=== PATIENT | female | born 1965 | race Caucasian/White ===

== ENCOUNTER → 2016-03-06 | Outpatient (CLI) | payer BC, OTHER ==
[~2016-03-06] MED LIST: ATR10 PO; ATV/1 PO; ATV1 PO; CALCTAB7 PO; CHOL2000 PO; CIPR-255 PO; CYT100 PO; DLD/2 PO; DLD2 PO; ERGO50002 PO; FNTTP50 TD; FOLI1TAB7 PO; FRRS300 PO; JUICE SUPPLEMENT PO; KFL500 PO; LDDP5 TD; MCRB100 PO; NAPR1TAB9 PO; ONDA4TAB46 PO; ONDA4TAB9 PO; PRT40 PO; Pain Pump INJ; SULF800T23 PO; THIA1TAB PO; VLTG EXT
[2016-03-06 11:42] LABS: BASO % 0.4 %; BASO ABS # 0.01 K/uL (0-0.2); COMPLETE YES; EOS % 3.4 %; HEMATOCRIT 28.7 % (37-47); LYMPH % 21.5 %; LYMPH ABS # 0.57 K/uL (1.2-3.4); MEAN CELL VOLUME 76.1 fL (80-100); MEAN CORPUSCULAR HEMOGLOBIN 24.1 pg (25-34); MEAN CORPUSCULAR HGB CONC 31.7 g/dl (32-36); MEAN PLATELET VOLUME 10.7 fL (7.4-10.4); MONO % 9.1 %; NEUT % 65.6 %; PLATELET COUNT 112 K/uL (130-400); RED BLOOD COUNT 3.77 M/uL (4.2-5.4); WHITE BLOOD COUNT 2.65 K/uL (4.8-10.8)
[2016-03-06 12:17] LABS: ALB/GLOB RATIO 0.9 (0.9-2); ALKALINE PHOSPHATASE 188 U/L (45-117); ALT/SGPT 34 U/L (12-78); AST/SGOT 42 U/L (15-37); BLOOD UREA NITROGEN 16 mg/dl (7-18); BUN/CREATININE RATIO 24.8 (10-20); CALCIUM 8.7 mg/dl (8.5-10.1); CARBON DIOXIDE 31 mmol/L (21-32); CHLORIDE 101 mmol/L (98-107); CREATININE 0.65 mg/dl (0.60-1.20); GLUCOSE 122 mg/dl (70-99); POTASSIUM 2.5 mmol/L (3.5-5.1); SODIUM 140 mmol/L (136-145)
== END ==
LOC: C.LABUPNIT 12:16
PROVIDERS: ATTEND Family Medicine
DX: J44.9 Chronic obstructive pulmonary disease, unspecified (principal)

== ENCOUNTER → 2016-03-07 | Outpatient (CLI) | payer BC, OTHER ==
[2016-03-07 09:05] LABS: BLOOD UREA NITROGEN 19 mg/dl (7-18); BUN/CREATININE RATIO 33.3 (10-20); CALCIUM 8.8 mg/dl (8.5-10.1); CARBON DIOXIDE 30 mmol/L (21-32); CHLORIDE 98 mmol/L (98-107); CREATININE 0.58 mg/dl (0.60-1.20); GLUCOSE 95 mg/dl (70-99); MAGNESIUM 1.8 mg/dl (1.8-2.4); POTASSIUM 2.7 mmol/L (3.5-5.1); SODIUM 141 mmol/L (136-145)
== END ==
LOC: C.LABUPNIT 12:43
PROVIDERS: ATTEND Family Medicine
DX: K70.31 Alcoholic cirrhosis of liver with ascites (principal)

== ENCOUNTER → 2016-03-11 | Outpatient (CLI) | payer BC, OTHER ==
[2016-03-11 08:25] LABS: BLOOD UREA NITROGEN 19 mg/dl (7-18); BUN/CREATININE RATIO 31.5 (10-20); CALCIUM 8.6 mg/dl (8.5-10.1); CARBON DIOXIDE 30 mmol/L (21-32); CHLORIDE 101 mmol/L (98-107); GLUCOSE 89 mg/dl (70-99); MAGNESIUM 2.2 mg/dl (1.8-2.4); POTASSIUM 2.9 mmol/L (3.5-5.1); SODIUM 141 mmol/L (136-145)
== END ==
LOC: C.LABUPNIT 08:07
PROVIDERS: ATTEND Family Medicine
DX: R60.9 Edema, unspecified (principal); M62.81 Muscle weakness (generalized)

== ENCOUNTER → 2016-03-24 | Outpatient (CLI) | payer BC, OTHER ==
[2016-03-24 09:13] LABS: BLOOD UREA NITROGEN 17 mg/dl (7-18); BUN/CREATININE RATIO 28.4 (10-20); CALCIUM 8.7 mg/dl (8.5-10.1); CARBON DIOXIDE 28 mmol/L (21-32); CHLORIDE 102 mmol/L (98-107); CREATININE 0.61 mg/dl (0.60-1.20); GLUCOSE 120 mg/dl (70-99); SODIUM 141 mmol/L (136-145)
== END ==
LOC: C.LABUPNIT 08:46
PROVIDERS: ATTEND Family Medicine
DX: R60.9 Edema, unspecified (principal)

== ENCOUNTER → 2016-03-29 | Outpatient (CLI) | payer BC, OTHER ==
[2016-03-29 08:30] LABS: BLOOD UREA NITROGEN 13 mg/dl (7-18); BUN/CREATININE RATIO 22.5 (10-20); CALCIUM 8.5 mg/dl (8.5-10.1); CARBON DIOXIDE 26 mmol/L (21-32); CHLORIDE 105 mmol/L (98-107); CREATININE 0.59 mg/dl (0.60-1.20); GLUCOSE 68 mg/dl (70-99); MAGNESIUM 1.9 mg/dl (1.8-2.4); POTASSIUM 3.4 mmol/L (3.5-5.1); SODIUM 143 mmol/L (136-145)
== END ==
LOC: C.LABUPNIT 08:04
PROVIDERS: ATTEND Family Medicine
DX: K72.90 Hepatic failure, unspecified without coma (principal)

== ENCOUNTER 2016-05-11 17:19 | Observation (INO) | payer BC, OTHER ==
[~2016-05-11] VITALS: Ht 165.1 cm; Wt 64.5 kg
[~2016-05-11 17:19] MED LIST changes: -ATR10 PO; -ATV/1 PO; -CALCTAB7 PO; -CHOL2000 PO; -CIPR-255 PO; -CYT100 PO; -DLD/2 PO; -DLD2 PO; -ERGO50002 PO; -FNTTP50 TD; -FOLI1TAB7 PO; -FRRS300 PO; +HYDR2TAB3 PO; -KFL500 PO; -MCRB100 PO; -NAPR1TAB9 PO; -ONDA4TAB9 PO; -PRT40 PO; -Pain Pump INJ; -SULF800T23 PO; -THIA1TAB PO
--- NOTE | 2016-05-11 19:18 | DIAGNOSTIC IMAGING REPORT ---
SINGLE VIEW PELVIS; 2 LEFT HIP CLINICAL HISTORY: Fall with left thigh pain. FINDINGS: AP pelvic radiographs with AP and frog-leg views of the left hip are obtained. Comparison is made to study dated 11/28/2015. The skeletal structures are osteopenic. There is chronic posttraumatic deformity of the left hip. Intertrochanteric and intramedullary nails are in place. The orthopedic hardware is intact. There are minimally distracted acute on chronic left pubic ring fractures. No additional acute fracture is identified. The remainder the bony pelvis and the proximal femora are preserved. Mild to moderate arthritic change is seen in the hips. Mild sclerosis is noted in the sacroiliac joints. Soft tissue edema is present in the left upper thigh. There is a nonobstructed abdominal bowel gas pattern. An electronic device projects over the right lower quadrant of the abdomen. IMPRESSION: 1. There are minimally distracted acute on chronic left pubic ring fractures with overlying soft tissue edema. 2. No additional acute fracture seen. 3. There is chronic posttraumatic deformity and postoperative change in the left proximal femur. 4. Osteopenia and degenerative change as above. Electronically signed by: Herbie Reese M.D. 05/11/2016 7:16 PM Dictated Date/Time: 05/11/2016 7:13 PM
--- NOTE | 2016-05-11 19:20 | DIAGNOSTIC IMAGING REPORT ---
LEFT FOREARM 2 VIEWS CLINICAL HISTORY: Fall with left arm pain. FINDINGS: AP and lateral views of the left forearm are obtained. No prior studies are available for comparison at the time of dictation. The skeletal structures are osteopenic. No acute fracture is seen. There is chronic posttraumatic deformity of the distal radius with a buttress plate in place. There is a chronic avulsion injury of the ulnar styloid. The wrist and elbow joints are grossly maintained. Mild soft tissue swelling is suggested above the elbow. IMPRESSION: 1. No acute fracture is identified in the left forearm. 2. Osteopenia with chronic posttraumatic and postoperative change involving the wrist as above. Electronically signed by: Herbie Reese M.D. 05/11/2016 7:19 PM Dictated Date/Time: 05/11/2016 7:17 PM
--- NOTE | 2016-05-11 19:23 | DIAGNOSTIC IMAGING REPORT ---
LEFT HUMERUS 2 VIEWS CLINICAL HISTORY: Fall with left arm pain. FINDINGS: AP and lateral views of the left humerus are obtained. No prior studies are available for comparison at the time of dictation. The skeletal structures are osteopenic. No humeral fracture is identified. The left shoulder and elbow joints are grossly maintained. Mild soft tissue swelling is noted above the elbow. IMPRESSION: 1. Osteopenia with no radiographic evidence of left humeral fracture. 2. Soft tissue swelling is noted above the elbow. Electronically signed by: Herbie Reese M.D. 05/11/2016 7:21 PM Dictated Date/Time: 05/11/2016 7:20 PM
--- NOTE | 2016-05-11 19:27 | DIAGNOSTIC IMAGING REPORT ---
LEFT ANKLE 3 VIEWS CLINICAL HISTORY: Fall with left ankle injury. FINDINGS: 3 views of left ankle are obtained. No prior studies are available for comparison at the time of dictation. The skeletal structures are heterogeneously osteopenic and no definite acute fracture is identified. A curvilinear density just below the lateral malleolus may represent an age indeterminant avulsion injury. The ankle mortise is intact. There is a joint effusion. Soft tissue swelling is present around the ankle. A tiny plantar calcaneal enthesophyte is observed. IMPRESSION: 1. Soft tissue swelling and joint effusion. The skeletal structures are heterogeneously osteopenic with no definite acute fracture seen. 2. A curvilinear density is identified just below the lateral malleolus, possibly representing an age-indeterminate avulsion injury. Correlate for point tenderness at this site. Electronically signed by: Herbie Reese M.D. 05/11/2016 7:26 PM Dictated Date/Time: 05/11/2016 7:22 PM
[2016-05-11] MEDS ORDERED: ACETAMINOPHEN/CODEINE 300/30MG TAB PO STA (20:27)
[2016-05-11 20:32] LABS: MEAN CORPUSCULAR HGB CONC 31.7 g/dl (32-36)
[2016-05-11 20:41] LABS: HEMATOCRIT 27.1 % (37-47); MEAN CELL VOLUME 67.6 fL (80-100); MEAN CORPUSCULAR HEMOGLOBIN 21.4 pg (25-34); RED BLOOD COUNT 4.01 M/uL (4.2-5.4); WHITE BLOOD COUNT 2.68 K/uL (4.8-10.8)
[2016-05-11 20:44] LABS: BUN/CREATININE RATIO 9.5 (10-20); CALCIUM 8.6 mg/dl (8.5-10.1); CREATININE 0.66 mg/dl (0.60-1.20); POTASSIUM 3.9 mmol/L (3.5-5.1)
[2016-05-11 21:04] LABS: BASO % 0.4 %; BASO ABS # 0.01 K/uL (0-0.2); COMPLETE YES; ECHINOCYTES 1+; EOS % 0.4 %; IG% 0.4 %; LARGE PLATELETS 1+; LYMPH % 13.4 %; LYMPH ABS # 0.36 K/uL (1.2-3.4); MEAN PLATELET VOLUME 9.5 fL (7.4-10.4); MICROCYTOSIS PRESENT; MONO % 4.5 %; NEUT % 80.9 %; PLATELET COUNT 118 K/uL (130-400); PLT ESTIMATE DECREASED
--- NOTE | 2016-05-11 21:27 | EMERGENCY ROOM VISIT NOTE ---
History First contact with patient: 18:01 Chief Complaint: LEG PAIN,LEG INJURY Stated Complaint: LEFT EYE & ARM PAIN History of Present Illness The patient is a 51 year old female who presents to the Emergency Room via ambulance with complaints of "left leg and left arm pain. The patient states that she was moving into her apartment on Tuesday, and fell on the rug that is on the linoleum. She states that she fell injuring the left elbow, left thigh and left foot. She came here via ambulance today. She states that she is experiencing a lot of pain in the left arm, pelvis/left thigh and left foot. She denies any loss of consciousness, nausea, vomiting, new chest pain, new shortness of breath or new abdominal pain. She denies any new neck or back pain. She is taking 4 mg of Dilaudid orally which she had at her home. She also has a lidocaine patch on the left thigh. Review of Systems A complete 10-point Review of Systems was discussed with the patient, with pertinent positives and negatives listed in the History of Present Illness. All remaining Review of Systems questions can be considered negative unless otherwise specified. 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 (18) UTI (urinary tract infection) Surgical Problems: (1) H/O gastric bypass (2) H/O gastrostomy (3) H/O total hip arthroplasty (4) History of cholecystectomy (5) History of total hysterectomy Family History Cancer FHx: aneurysm FHx: stroke Social History Smoking Status: Unknown if Ever Smoked Alcohol Use: heavy Drug Use: none Marital Status: Housing Status: lives alone Occupation Status: unemployed Current/Historical Medications Scheduled Diclofenac Sod (Voltaren), 1 APPLN EXT QID Lidocaine (Lidocaine), 1 PATCH TD QAM Scheduled PRN Hydromorphone HCl (Hydromorphone HCl), 6 MG PO Q2H PRN for Pain Lorazepam (Lorazepam), 1 MG PO Q4 PRN for Anxiety Ondansetron Hcl (Zofran), 8 MG PO Q6 PRN for Nausea Allergies Coded Allergies: Clarithromycin (Verified Allergy, Intermediate, HIVES, 05/11/16) Aspirin (Verified Allergy, Mild, 05/11/16) Tramadol (Verified Allergy, Mild, 05/11/16) Oxaprozin (Verified Allergy, Unknown, 05/11/16) Physical Exam Vital Signs Date Time Temp Pulse Resp B/P Pulse Ox O2 Delivery O2 Flow Rate FiO2 05/11/16 23:54 73 18 131/75 98 05/11/16 20:46 87 24 139/104 99 Room Air 05/11/16 19:23 94 16 132/70 99 Room Air 05/11/16 18:44 77 18 133/60 94 Room Air 05/11/16 17:27 37.3 84 18 147/78 98 Room Air Physical Exam VITAL SIGNS - Vital signs and nursing notes were reviewed. The patient is afebrile, slightly hypertensive, non-tachycardic and is saturating well on room air 98%. GENERAL -51-year-old female appearing her stated age. The patient does appear to be rocking back and forth upon our conversation. Communicates well with provider and answers questions appropriately. SKIN - Gross examination of the entire body surface demonstrates no lacerations to the body surface. There is abrasion noted to the left lateral elbow. There is ecchymosis noted on the left elbow. HEAD - Normocephalic, Atraumatic. EYES - PERRL with EOMI bilaterally. Without subconjunctival hemorrhage. Palpebral conjunctiva pink and moist with no injection. EARS - No deformities of external structures noted on gross examination bilaterally. NOSE - Midline and without cyanosis. No epistaxis or clear watery discharge noted. MOUTH/OROPHARYNX - Without perioral cyanosis. LUNGS - Chest wall symmetric without accessory muscle use, intercostals retractions, or central cyanosis. No flail chest or depressed fractures noted. No paradoxical chest wall movements noted. Normal vesicular breath sounds CTA B/ L. No wheezes, rales, or rhonchi appreciated. CARDIAC - RRR with S1/S2. No murmur, rubs, or gallops appreciated. EXTREMITIES - No gross deformities noted of the extremities. There is tenderness to palpation overlying the proximal thigh and left hip. + There is also tenderness to palpation overlying the left lateral ankle. The skin is intact. +5/5 strength noted in UE/LE bilaterally. No neurologic deficits. Neurovascular deficits. Medical Decision & Procedures ER Provider Diagnostic Interpretation: LEFT ANKLE 3 VIEWS CLINICAL HISTORY: Fall with left ankle injury. FINDINGS: 3 views of left ankle are obtained. No prior studies are available for comparison at the time of dictation. The skeletal structures are heterogeneously osteopenic and no definite acute fracture is identified. A curvilinear density just below the lateral malleolus may represent an age indeterminant avulsion injury. The ankle mortise is intact. There is a joint effusion. Soft tissue swelling is present around the ankle. A tiny plantar calcaneal enthesophyte is observed. IMPRESSION: 1. Soft tissue swelling and joint effusion. The skeletal structures are heterogeneously osteopenic with no definite acute fracture seen. 2. A curvilinear density is identified just below the lateral malleolus, possibly representing an age-indeterminate avulsion injury. Correlate for point tenderness at this site. Electronically signed by: Herbie Reese M.D. 05/11/2016 7:26 PM Dictated Date/Time: 05/11/2016 7:22 PM LEFT FOREARM 2 VIEWS CLINICAL HISTORY: Fall with left arm pain. FINDINGS: AP and lateral views of the left forearm are obtained. No prior studies are available for comparison at the time of dictation. The skeletal structures are osteopenic. No acute fracture is seen. There is chronic posttraumatic deformity of the distal radius with a buttress plate in place. There is a chronic avulsion injury of the ulnar styloid. The wrist and elbow joints are grossly maintained. Mild soft tissue swelling is suggested above the elbow. IMPRESSION: 1. No acute fracture is identified in the left forearm. 2. Osteopenia with chronic posttraumatic and postoperative change involving the wrist as above. Electronically signed by: Herbie Reese M.D. 05/11/2016 7:19 PM Dictated Date/Time: 05/11/2016 7:17 PM SINGLE VIEW PELVIS; 2 LEFT HIP CLINICAL HISTORY: Fall with left thigh pain. FINDINGS: AP pelvic radiographs with AP and frog-leg views of the left hip are obtained. Comparison is made to study dated 11/28/2015. The skeletal structures are osteopenic. There is chronic posttraumatic deformity of the left hip. Intertrochanteric and intramedullary nails are in place. The orthopedic hardware is intact. There are minimally distracted acute on chronic left pubic ring fractures. No additional acute fracture is identified. The remainder the bony pelvis and the proximal femora are preserved. Mild to moderate arthritic change is seen in the hips. Mild sclerosis is noted in the sacroiliac joints. Soft tissue edema is present in the left upper thigh. There is a nonobstructed abdominal bowel gas pattern. An electronic device projects over the right lower quadrant of the abdomen. IMPRESSION: 1. There are minimally distracted acute on chronic left pubic ring fractures with overlying soft tissue edema. 2. No additional acute fracture seen. 3. There is chronic posttraumatic deformity and postoperative change in the left proximal femur. 4. Osteopenia and degenerative change as above. Electronically signed by: Herbie Reese M.D. 05/11/2016 7:16 PM Dictated Date/Time: 05/11/2016 7:13 PM LEFT HUMERUS 2 VIEWS CLINICAL HISTORY: Fall with left arm pain. FINDINGS: AP and lateral views of the left humerus are obtained. No prior studies are available for comparison at the time of dictation. The skeletal structures are osteopenic. No humeral fracture is identified. The left shoulder and elbow joints are grossly maintained. Mild soft tissue swelling is noted above the elbow. IMPRESSION: 1. Osteopenia with no radiographic evidence of left humeral fracture. 2. Soft tissue swelling is noted above the elbow. Electronically signed by: Herbie Reese M.D. 05/11/2016 7:21 PM Dictated Date/Time: 05/11/2016 7:20 PM Laboratory Results 05/11/16 20:10 Red Blood Count 4.01, Mean Corpuscular Volume 67.6, Mean Corpuscular Hemoglobin 21.4, Mean Corpuscular Hemoglobin Concent 31.7, Mean Platelet Volume 9.5, Neutrophils (%) (Auto) 80.9, Lymphocytes (%) (Auto) 13.4, Monocytes (%) (Auto) 4.5, Eosinophils (%) (Auto) 0.4, Basophils (%) (Auto) 0.4, Neutrophils # (Auto) 2.17, Lymphocytes # (Auto) 0.36, Monocytes # (Auto) 0.12, Eosinophils # (Auto) 0.01, Basophils # (Auto) 0.01 05/11/16 20:10 Test 05/11/16 20:10 White Blood Count 2.68 K/uL (4.8-10.8) Red Blood Count 4.01 M/uL (4.2-5.4) Hemoglobin 8.6 g/dL (12.0-16.0) Hematocrit 27.1 % (37-47) Mean Corpuscular Volume 67.6 fL (80-100) Mean Corpuscular Hemoglobin 21.4 pg (25-34) Mean Corpuscular Hemoglobin Concent 31.7 g/dl (32-36) Platelet Count 118 K/uL (130-400) Mean Platelet Volume 9.5 fL (7.4-10.4) Neutrophils (%) (Auto) 80.9 % Lymphocytes (%) (Auto) 13.4 % Monocytes (%) (Auto) 4.5 % Eosinophils (%) (Auto) 0.4 % Basophils (%) (Auto) 0.4 % Neutrophils # (Auto) 2.17 K/uL (1.4-6.5) Lymphocytes # (Auto) 0.36 K/uL (1.2-3.4) Monocytes # (Auto) 0.12 K/uL (0.11-0.59) Eosinophils # (Auto) 0.01 K/uL (0-0.5) Basophils # (Auto) 0.01 K/uL (0-0.2) RDW Standard Deviation 45.9 fL (36.4-46.3) RDW Coefficient of Variation 18.5 % (11.5-14.5) Immature Granulocyte % (Auto) 0.4 % Immature Granulocyte # (Auto) 0.01 K/uL (0.00-0.02) Platelet Estimate DECREASED Large Platelets 1+ Microcytosis PRESENT Echinocytes 1+ Anion Gap 10.0 mmol/L (3-11) Est Creatinine Clear Calc Drug Dose 89.7 ml/min Estimated GFR () 117.7 Estimated GFR (Non- 101.6 BUN/Creatinine Ratio 9.5 (10-20) Calcium Level 8.6 mg/dl (8.5-10.1) Medications Administered Medications (Trade) Dose Ordered Sig/Flori Route Start Time Stop Time Status Last Admin Dose Admin Acetaminophen/ Codeine Phosphate (Tylenol w/ Codeine #3 Tab) 1 tab NOW STAT PO 05/11/16 20:27 3/28/17 20:28 DC 05/11/16 20:44 1 TAB Medical Decision Patient was seen and evaluated as above. Patient presents via ambulance. She is status post fall. There is ecchymosis overlying the left elbow. She seems to be writhing in pain, an extensive review of her chart reveals that she is to receive no narcotics secondary for concern over previous visits regarding narcotic use. I did discuss this with the patient and offered her essentially every other potential pain medication other than narcotics, and between her allergies she was offered Tylenol and said that will not help her pain. Radiographs were obtained of the affected areas. Acute on chronic pelvic fracture as well as left ankle fracture suspected. She'll be splinted with a gel ankle splint on the left ankle as well as a left arm sling. The patient seemed very upset when I said I was not able to give her narcotic medication. The case was discussed with my attending who also personally evaluated the patient. She was given one Tylenol with Codeine. Laboratory results reveal a low white blood cell count red blood cell count anemia as well as decreased platelet count. These all appear to be chronic. There is also elevation of chloride, low carbon dioxide, low BUN. I do not suspect any emergent change to these. The patient would be an excellent candidate for rehabilitation facility to help with her ambulatory dysfunction however at this time it is too late to have her placed. I do believe the next best alternative is inpatient management. The case was discussed with my attending and then with Dr. Neumann, He agreed to evaluate the patient. Please refer to further documentation regarding her stay. I do believe the patient this time is stable for admission. In evaluation treatment this patient the following differential diagnoses were entertained: Fracture of the left elbow, left elbow contusion, contusion multiple sites, left hip fracture, acute on chronic pelvic fracture, among others. Impression Primary Impression: Fall Additional Impressions: Pelvic ring fracture Ankle fracture, lateral malleolus, closed Left elbow pain Departure Information Dispostion Admitted as an inpatient Condition FAIR Referrals Zoey Locke (PCP) Patient Instructions My [facility] Health Problem Qualifiers
--- NOTE | 2016-05-11 23:12 | History and Physical ---
History & Physical Date & Time of Service: May 11, 2016 at 23:11 Chief Complaint: Left Eye & Arm Pain Primary Care Physician: Zoey Lokce History of Present Illness Source: patient This is a 51 y/o F with a history of MS who presents after a Fall 2 days ago. She reports that she slipped on the linoleum at home when she was moving in her new apartment. She attempted to get up but fell again. She currently has pain in her left foot, pelvis and left arm. She denies pre-syncope / syncope/ LOC/ chest pain, shortness of breath. She is unable to bear weight on her left foot. She also has some bruising on her left elbow region. Past Medical/Surgical History Medical Problems: (1) Anxiety Status: Chronic (2) Chronic back pain Status: Chronic (3) Endometriosis Status: Chronic (4) Fibromyalgia Status: Chronic (5) GERD (gastroesophageal reflux disease) Status: Chronic (6) Multiple Sclerosis Status: Chronic Surgical Problems: (1) H/O gastric bypass Permanent Comment: 2000 Status: Resolved (2) H/O gastrostomy Permanent Comment: 10/26/14 Status: Resolved (3) H/O total hip arthroplasty Permanent Comment: ; 2012 Status: Resolved (4) History of cholecystectomy Permanent Comment: 10/26/14 Status: Resolved (5) History of total hysterectomy Permanent Comment: 1994 Status: Resolved Family History Cancer FHx: aneurysm FHx: stroke Social History Smoking Status: Unknown if Ever Smoked Drug Use: none Marital Status: Housing status: penitentiary Occupational Status: unemployed Immunizations History of Influenza Vaccine: Unknown History of Tetanus Vaccine?: Unknown History of Pneumococcal: Unknown History of Hepatitis B Vaccine: Unknown Multi-Drug Resistant Organisms History of MDRO: No Allergies Coded Allergies: Clarithromycin (Verified Allergy, Intermediate, HIVES, 05/11/16) Aspirin (Verified Allergy, Mild, 05/11/16) Tramadol (Verified Allergy, Mild, 05/11/16) Oxaprozin (Verified Allergy, Unknown, 05/11/16) Home Medications Scheduled Diclofenac Sod (Voltaren), 1 APPLN EXT QID Lidocaine (Lidocaine), 1 PATCH TD QAM Scheduled PRN Hydromorphone HCl (Hydromorphone HCl), 6 MG PO Q2H PRN for Pain Lorazepam (Lorazepam), 1 MG PO Q4 PRN for Anxiety Ondansetron Hcl (Zofran), 8 MG PO Q6 PRN for Nausea Review of Systems Constitutional: + fatigue, + weakness, No chills, No fever, No weight loss Respiratory: No cough, No dyspnea at rest, No dyspnea on exertion, No shortness of breath, No sputum, No wheezing Cardiovascular: No chest pain Abdomen: No nausea, No pain, No vomiting Musculoskeletal: + joint pain, + muscle pain, + swelling Genitourinary - Female: No dysuria, No urinary frequency, No urinary urgency Physical Exam Vital Signs Date Time Temp Pulse Resp B/P Pulse Ox O2 Delivery O2 Flow Rate FiO2 05/11/16 20:46 87 24 139/104 99 Room Air 05/11/16 19:23 94 16 132/70 99 Room Air 05/11/16 18:44 77 18 133/60 94 Room Air 05/11/16 17:27 37.3 84 18 147/78 98 Room Air General Appearance: + mild distress Eyes: PERRL, EOMI ENT: hearing grossly normal Neck: supple, no adenopathy Respiratory/Chest: lungs clear, normal breath sounds, no respiratory distress, no accessory muscle use Cardiovascular: regular rate, rhythm, no edema Abdomen/GI: normal bowel sounds, non tender, soft Extremities/Musculoskelatal: + swelling (left elbow bruising, limited ROM due to pain), + pertinent finding (Left Lower extremity weakness, strength 3/5) Neurologic/Psych: alert, + motor weakness, + depressed affect, + pertinent finding Diagnostics Laboratory Results Results Past 24 Hours Test 05/11/16 20:10 Range/Units White Blood Count 2.68 4.8-10.8 K/uL Red Blood Count 4.01 4.2-5.4 M/uL Hemoglobin 8.6 12.0-16.0 g/dL Hematocrit 27.1 37-47 % Mean Corpuscular Volume 67.6 80-100 fL Mean Corpuscular Hemoglobin 21.4 25-34 pg Mean Corpuscular Hemoglobin Concent 31.7 32-36 g/dl Platelet Count 118 130-400 K/uL Mean Platelet Volume 9.5 7.4-10.4 fL Neutrophils (%) (Auto) 80.9 % Lymphocytes (%) (Auto) 13.4 % Monocytes (%) (Auto) 4.5 % Eosinophils (%) (Auto) 0.4 % Basophils (%) (Auto) 0.4 % Neutrophils # (Auto) 2.17 1.4-6.5 K/uL Lymphocytes # (Auto) 0.36 1.2-3.4 K/uL Monocytes # (Auto) 0.12 0.11-0.59 K/uL Eosinophils # (Auto) 0.01 0-0.5 K/uL Basophils # (Auto) 0.01 0-0.2 K/uL RDW Standard Deviation 45.9 36.4-46.3 fL RDW Coefficient of Variation 18.5 11.5-14.5 % Immature Granulocyte % (Auto) 0.4 % Immature Granulocyte # (Auto) 0.01 0.00-0.02 K/uL Platelet Estimate DECREASED Large Platelets 1+ Microcytosis PRESENT Echinocytes 1+ Sodium Level 138 136-145 mmol/L Potassium Level 3.9 3.5-5.1 mmol/L Chloride Level 108 98-107 mmol/L Carbon Dioxide Level 20 21-32 mmol/L Anion Gap 10.0 3-11 mmol/L Blood Urea Nitrogen 6 7-18 mg/dl Creatinine 0.66 0.60-1.20 mg/dl Est Creatinine Clear Calc Drug Dose 89.7 ml/min Estimated GFR () 117.7 Estimated GFR (Non- 101.6 BUN/Creatinine Ratio 9.5 10-20 Random Glucose 129 70-99 mg/dl Calcium Level 8.6 8.5-10.1 mg/dl Impression Assessment and Plan Ambulatory dysfunction s/p Fall No new fractures noted on Xrays- except for minor acute on chronic pelvic ring fractures Does have osteopenia PT/OT Will need Acute rehab pain control, avoid narcs DVT proph Lovenox Med rec Unavailable at this time VTE Prophylaxis VTE Risk Assessment Done? Y/N: Yes Risk Level: Moderate Assessment and Plan Attending Addendum: I have physically seen and examined this patient, have directed their medical care, have supervised the medical residents activities, and agree with the H&P as noted above, with the following changes: NONE All the patient's usual medications and treatments will be continued. She was assessed by PT and OT, to determine inpatient rehabilitation is necessary.
[2016-05-11] MEDS ORDERED: ONDANSETRON 4 MG TAB PO PRN (23:15)
[2016-05-11] MEDS ORDERED: MAGNESIUM HYDROXIDE SUSP 30 ML UDC PO PRN (23:15)
[2016-05-11] MEDS ORDERED: POLYETHYLENE (MIRALAX) 17 GM PACK PO PRN (23:15)
[2016-05-11] MEDS ORDERED: ALUMINUM/MAGNESIUM/SIMETH (MAALOX MAX) 30 ML UDC PO PRN (23:15)
[2016-05-11] MEDS ORDERED: ACETAMINOPHEN 325 MG TAB PO PRN (23:15)
[2016-05-11] MEDS ORDERED: HYDROmorphone HCL 2 MG TAB PO PRN (23:15)
[2016-05-11] MEDS ORDERED: ONDANSETRON INJ 2 MG/ML 2 ML VIAL IV PRN (23:15)
--- NOTE | 2016-05-11 23:23 | EMERGENCY ROOM VISIT NOTE ---
ED Visit Note First contact with patient: 18:01 I have personally evaluated and examined this patient. I agree with assessment and plan of Héctor Ayala PA-C. 51 yr old female with ambulatory disfunction and not doing well at home with fall resulting in several fractures. No evidence of shock at this time and I do not feel she requires transfer to trauma center. Will discuss with hospitalist for further evaluation and placement.
[2016-05-11 23:54] VITALS: O2SAT 98
[2016-05-12 00:20] VITALS: BP 160/70; PULSE 75; TEMP 37.3; O2SAT 98; Ht 165.1 cm; Wt 64.5 kg
[2016-05-12] MEDS ORDERED: HYDROmorphone HCL 2 MG TAB ONE (02:20)
[2016-05-12] MEDS ORDERED: IV FLUIDS COMPLETED PRN (02:45)
[2016-05-12] MEDS: LORAZEPAM 1 MG TAB PO PRN ×2 (03:01→07:52)
[2016-05-12 07:56] VITALS: BP 128/73; PULSE 73; TEMP 36.6; O2SAT 97
[2016-05-12 08:08] LABS: INR 1.3 (0.9-1.1); PROTHROMBIN TIME (PATIENT) 13.6 SECONDS (9.0-12.0)
[2016-05-12] MEDS: DICLOFENAC SOD 1% GEL 100 GM TUBE EXT SCH ×4 (10:15→21:11)
[2016-05-12] MEDS: ENOXAPARIN 40 MG/0.4 ML SYR SQ SCH (10:16)
[2016-05-12] MEDS: LIDODERM (LIDOCAINE) PATCH 5% TD SCH (10:17)
[2016-05-12] MEDS: HYDROmorphone INJ 2 MG/ML SYR/VIAL IV PRN ×4 (10:28→22:27)
--- NOTE | 2016-05-12 13:04 | Hospitalist Progress Note ---
Hospitalist Progress Note Date of Service May 12, 2016. Subjective Pt evaluation today including: conversation w/ patient, physical exam, chart review, lab review, review of studies, review of inpatient medication list Voiding: no voiding problems, no incontinence Patient reports 9/10 diffuse body pain. Given IV 6 mg Dilaudid (ordered by admitting team) with no relief in symptoms. +anxiousness. +diffuse abdominal pain. Patient denies any fever, chills, sweats, lightheadedness, dizziness, vision changes, CP, palpitations, edema, SOB, wheezing, cough, nausea, vomiting , diarrhea, urinary symptoms, melena, numbness/tingling, weakness, depression, active bleeding, or new skin discoloration/changes. Medications Current Inpatient Medications Medications (Trade) Dose Ordered Sig/Flori Route Start Time Stop Time Status Last Admin Dose Admin Enoxaparin Sodium (Lovenox Inj) 40 mg QAM SQ 05/12/16 09:00 06/11/16 08:59 05/12/16 10:16 40 MG Acetaminophen (Tylenol Tab) 650 mg Q4H PRN PO 05/11/16 23:15 06/10/16 23:14 Al Hydrox/Mg Hydrox/Simethicone (Maalox Max Susp) 15 ml Q4H PRN PO 05/11/16 23:15 06/10/16 23:14 Magnesium Hydroxide (Milk Of Magnesia Susp) 30 ml Q6H PRN PO 05/11/16 23:15 06/10/16 23:14 Polyethylene (Miralax Powder Packet) 17 gm DAILY PRN PO 05/11/16 23:15 06/10/16 23:14 Ondansetron HCl (Zofran Inj) 4 mg Q6H PRN IV 05/11/16 23:15 06/10/16 23:14 Diclofenac Sodium (Voltaren 1% Top Gel) 1 appln QID EXT 05/12/16 09:00 06/11/16 08:59 05/12/16 10:15 1 APPLN Lidocaine (Lidoderm Patch 5%) 1 patch QAM TD 05/12/16 09:00 06/11/16 08:59 05/12/16 10:17 1 PATCH Ondansetron HCl (Zofran Tab) 8 mg Q6 PRN PO 05/11/16 23:15 06/10/16 23:14 Miscellaneous (Remove Lidoderm Patch) 1 ea DAILY@21 N/A 05/12/16 21:00 06/11/16 20:59 Miscellaneous (Iv Fluids Completed) 1 ea PRN PRN N/A 05/12/16 02:45 05/12/17 02:44 Hydromorphone HCl 2 mg 2 mg Q2H PRN IV 05/12/16 10:00 05/26/16 09:59 05/12/16 10:28 2 MG Lorazepam/Syringe (Ativan Inj/ Syringe) 1 ml @ 0.5 mls/min Q6H PRN IV 05/12/16 09:15 06/11/16 09:14 Objective Vital Signs Date Time Temp Pulse Resp B/P Pulse Ox O2 Delivery O2 Flow Rate FiO2 05/12/16 07:56 36.6 73 16 128/73 97 Room Air 05/12/16 07:15 Room Air 05/12/16 00:20 37.3 75 18 160/70 98 Room Air 05/12/16 00:20 37.3 75 18 160/70 Room Air 05/11/16 23:54 73 18 131/75 98 05/11/16 20:46 87 24 139/104 99 Room Air 05/11/16 19:23 94 16 132/70 99 Room Air 05/11/16 18:44 77 18 133/60 94 Room Air 05/11/16 17:27 37.3 84 18 147/78 98 Room Air Physical Exam General Appearance: no apparent distress Eyes: normal inspection, PERRL ENT: hearing grossly normal Neck: supple Respiratory/Chest: lungs clear, no respiratory distress, no accessory muscle use Abdomen: normal bowel sounds, soft, + tenderness (diffuse tenderness to light palpation ) Extremities: no pedal edema, no calf tenderness, + pertinent finding (SCDs on. Left ankle brace on ) Neurologic/Psychiatric: alert, oriented x 3, + depressed affect Skin: warm/dry, no rash, + pallor Laboratory Results Last 24 Hours Test 05/11/16 20:10 05/12/16 07:46 White Blood Count 2.68 K/uL Red Blood Count 4.01 M/uL Hemoglobin 8.6 g/dL Hematocrit 27.1 % Mean Corpuscular Volume 67.6 fL Mean Corpuscular Hemoglobin 21.4 pg Mean Corpuscular Hemoglobin Concent 31.7 g/dl Platelet Count 118 K/uL Mean Platelet Volume 9.5 fL Neutrophils (%) (Auto) 80.9 % Lymphocytes (%) (Auto) 13.4 % Monocytes (%) (Auto) 4.5 % Eosinophils (%) (Auto) 0.4 % Basophils (%) (Auto) 0.4 % Neutrophils # (Auto) 2.17 K/uL Lymphocytes # (Auto) 0.36 K/uL Monocytes # (Auto) 0.12 K/uL Eosinophils # (Auto) 0.01 K/uL Basophils # (Auto) 0.01 K/uL RDW Standard Deviation 45.9 fL RDW Coefficient of Variation 18.5 % Immature Granulocyte % (Auto) 0.4 % Immature Granulocyte # (Auto) 0.01 K/uL Platelet Estimate DECREASED Large Platelets 1+ Microcytosis PRESENT Echinocytes 1+ Sodium Level 138 mmol/L Potassium Level 3.9 mmol/L Chloride Level 108 mmol/L Carbon Dioxide Level 20 mmol/L Anion Gap 10.0 mmol/L Blood Urea Nitrogen 6 mg/dl Creatinine 0.66 mg/dl Est Creatinine Clear Calc Drug Dose 89.7 ml/min Estimated GFR () 117.7 Estimated GFR (Non- 101.6 BUN/Creatinine Ratio 9.5 Random Glucose 129 mg/dl Calcium Level 8.6 mg/dl Prothrombin Time 13.6 SECONDS Prothromb Time International Ratio 1.3 Hepatitis C Antibody Screen NEG Assessment and Plan This is a 51 y/o F with a history of MS who presents after a Fall 2 days ago. She reports that she slipped on the linoleum at home when she was moving in her new apartment. She attempted to get up but fell again. She currently has pain in her left foot, pelvis and left arm. She denies pre-syncope / syncope/ LOC/ chest pain, shortness of breath. She is unable to bear weight on her left foot. She also has some bruising on her left elbow region. Ambulatory dysfunction s/p fall: - Admit to med/surg - Imaging: -- Humerus fracture- Osteopenia with no radiographic evidence of left humeral fracture. Soft tissue swelling is noted above the elbow. -- Hip/pelvic fracture- There are minimally distracted acute on chronic left pubic ring fractures with overlying soft tissue edema. No additional acute fracture seen. There is chronic posttraumatic deformity and postoperative change in the left proximal femur. -- Left forearm- No acute fracture is identified in the left forearm. Osteopenia with chronic posttraumatic and postoperative change involving the wrist as above. -- Left ankle- Soft tissue swelling and joint effusion. The skeletal structures are heterogeneously osteopenic with no definite acute fracture seen. A curvilinear density is identified just below the lateral malleolus, possibly representing an age-indeterminate avulsion injury. Correlate for point tenderness at this site. Osteopenia and degenerative change as above. - Consult PT/OT - IV Dilaudid 2 mg q2 hrs PRN for pain control Chronic diffuse body pain/MS: - Consult pain management, appreciate recommendations -- According to patient, was taking Dilaudid PO 6 mg q2 hrs at home. Records reviewed, last prescription given was Dilaudid 2 mg PO x10 days (finished 5 days ago). Multiple narcotic prescriptions noted. -- Nursing staff reports that patient was complaining that no PCP will give her pain prescriptions - IV Dilaudid, Voltaren gel, and Lidoderm patch - Check ESR, CRP, ERNIE screen, and Lyme disease titers Anxiety: Ativan 1 mg IV q6 hrs PRN Alcoholic cirrhosis: - INR of 1.2- appears baseline per records - Follow PT/INR - Check LFTs tomorrow AM Thrombocytopenia, chronic- stable: Follow CBC GI Prophylaxis: Maalox PRN, IV Zofran PRN, Colace and/or Milk of Mag PRN DVT prophylaxis: Lovenox 40 mg SQ q24 hrsm, GUIDO and SCDs Code Status: LEVEL I, FULL Dispo: Pending PT/OT evaluations. accounting advisory services manager consulted
[2016-05-12 14:54] VITALS: BP 110/69; PULSE 73; TEMP 37; O2SAT 97
[2016-05-12 15:50] LABS: LYME DISEASE AB IGG NEG (NEG); LYME DISEASE AB IGM NEG (NEG)
[2016-05-13 00:01] VITALS: BP 107/68; PULSE 62; TEMP 37; O2SAT 96
[2016-05-13] MEDS: LORAZEPAM INJ 1 MG in SYRINGE 0.5 ML IV PRN ×2 (01:06→21:06)
[2016-05-13] MEDS: HYDROmorphone INJ 2 MG/ML SYR/VIAL IV PRN ×8 (01:42→23:34)
[2016-05-13 07:20] LABS: INR 1.3 (0.9-1.1); PROTHROMBIN TIME (PATIENT) 13.7 SECONDS (9.0-12.0)
[2016-05-13 07:41] LABS: BUN/CREATININE RATIO 19.7 (10-20); CREATININE 0.48 mg/dl (0.60-1.20); POTASSIUM 3.6 mmol/L (3.5-5.1)
[2016-05-13 07:48] VITALS: BP 112/65; PULSE 56; TEMP 36.7; O2SAT 94
[2016-05-13] MEDS: DICLOFENAC SOD 1% GEL 100 GM TUBE EXT SCH ×4 (07:58→21:07)
[2016-05-13] MEDS: LIDODERM (LIDOCAINE) PATCH 5% TD SCH (07:59)
[2016-05-13] MEDS: ENOXAPARIN 40 MG/0.4 ML SYR SQ SCH ×2 (07:59→11:14)
[2016-05-13 08:26] LABS: FERRITIN 11.4 ng/ml (8.0-388.0)
[2016-05-13 09:04] LABS: HEMATOCRIT 24.8 % (37-47); MEAN CELL VOLUME 69.5 fL (80-100); MEAN CORPUSCULAR HEMOGLOBIN 21.3 pg (25-34); MEAN CORPUSCULAR HGB CONC 30.6 g/dl (32-36); MEAN PLATELET VOLUME 9.4 fL (7.4-10.4); PLATELET COUNT 115 K/uL (130-400); RED BLOOD COUNT 3.57 M/uL (4.2-5.4); WHITE BLOOD COUNT 2.08 K/uL (4.8-10.8)
--- NOTE | 2016-05-13 09:44 | Pain Management Consultation ---
Pain Management Consultation Date of Consultation May 13, 2016. Reason for Consultation Fall; gait dysfunction History Mrs. Saldana is a 51 year old white female that has a history of chronic bilateral hip pain and diffuse myalgias which has required the implantation of an intrathecal pump and catheter delivery system. She has the pump refilled at the [place] [facility] [employer] Mrs. Saldana is admitted to the [facility] for a fall that occurred yesterday. She slipped on linoleum [place] while moving into a new apartment. She has left ankle pain, left elbow pain, and left groin/pelvic pain. Patient is wearing an ankle splint. She states that she is ambulating small amounts with the use of a walker. She has started physical therapy yesterday. Patient is currently ordered Dilaudid 2mg IV x 2 hrs which she is using approximately x 3-4 hours with pain relief. Patient rates her pain 8/10. Patient has an intrathecal pump containing Morphine and Fentanyl. She is receiving Morphine 3.498mg/day and Fentanyl 46.64mcg/day intrathecally. She has also been on Fentanyl patches 50mcg/hr as well as a reported Dilaudid 6mg x 2 hours PRN pain. According to notes, physicians have discontinued prescribing her Dilaudid recently. Patient denies any constitutional complaints, neurological symptoms, bowel/bladder incontinence , extremity weakness. Case discussed with Dr. Muro Past Medical/Surgical History (1) Presence of intrathecal pump (2) Chronic alcoholic liver disease (3) Pelvic ring fracture (4) Left elbow pain (5) Ankle fracture, lateral malleolus, closed (6) Fibromyalgia (7) Chronic back pain (8) Endometriosis (9) Multiple Sclerosis (10) Anxiety (11) GERD (gastroesophageal reflux disease) (12) H/O total hip arthroplasty (13) H/O gastric bypass (14) H/O gastrostomy (15) History of total hysterectomy (16) History of cholecystectomy Social / Work History Smoking Status: Never smoker Smokeless Tobacco Use: No Alcohol Use: previous alcoholism Marital Status: Housing Status: [facility] Occupation: unemployed Allergies Coded Allergies: Clarithromycin (Verified Allergy, Intermediate, HIVES, 05/11/16) Aspirin (Verified Allergy, Mild, 05/11/16) Tramadol (Verified Allergy, Mild, 05/11/16) Oxaprozin (Verified Allergy, Unknown, 05/11/16) Medications Current Inpatient Medications Medications (Trade) Dose Ordered Sig/Flori Route Start Time Stop Time Status Last Admin Dose Admin Enoxaparin Sodium (Lovenox Inj) 40 mg QAM SQ 05/12/16 09:00 06/11/16 08:59 05/12/16 10:16 40 MG Acetaminophen (Tylenol Tab) 650 mg Q4H PRN PO 05/11/16 23:15 06/10/16 23:14 Al Hydrox/Mg Hydrox/Simethicone (Maalox Max Susp) 15 ml Q4H PRN PO 05/11/16 23:15 06/10/16 23:14 Magnesium Hydroxide (Milk Of Magnesia Susp) 30 ml Q6H PRN PO 05/11/16 23:15 06/10/16 23:14 Polyethylene (Miralax Powder Packet) 17 gm DAILY PRN PO 05/11/16 23:15 06/10/16 23:14 Ondansetron HCl (Zofran Inj) 4 mg Q6H PRN IV 05/11/16 23:15 06/10/16 23:14 Diclofenac Sodium (Voltaren 1% Top Gel) 1 appln QID EXT 05/12/16 09:00 06/11/16 08:59 05/13/16 07:58 1 APPLN Lidocaine (Lidoderm Patch 5%) 1 patch QAM TD 05/12/16 09:00 06/11/16 08:59 05/13/16 07:59 1 PATCH Ondansetron HCl (Zofran Tab) 8 mg Q6 PRN PO 05/11/16 23:15 06/10/16 23:14 Miscellaneous (Remove Lidoderm Patch) 1 ea DAILY@21 N/A 05/12/16 21:00 06/11/16 20:59 05/12/16 21:09 1 EA Miscellaneous (Iv Fluids Completed) 1 ea PRN PRN N/A 05/12/16 02:45 05/12/17 02:44 Hydromorphone HCl 2 mg 2 mg Q2H PRN IV 05/12/16 10:00 05/26/16 09:59 05/13/16 07:58 2 MG Lorazepam/Syringe (Ativan Inj/ Syringe) 1 ml @ 0.5 mls/min Q6H PRN IV 05/12/16 09:15 06/11/16 09:14 05/13/16 01:06 0.5 MLS/MIN Calcium/Vitamin D (Caltrate Plus Tab) 1 tab BID PO 05/13/16 09:00 06/12/16 08:59 Review of Systems Denies any constitutional, cardiac, pulmonary, neurological, GI, , extremity, endocrine, neuro, ENT, dermatological, or musculoskeletal complaints other than stated in HPI Physical Exam Height & Weight: Height 5 feet, 5.00 inches. Weight 64.500 (Kilograms) 142 (Pounds) Last Vital Signs Documentation Date Time Temp Pulse Resp B/P Pulse Ox O2 Delivery O2 Flow Rate FiO2 05/13/16 08:11 Room Air 05/13/16 00:01 37.0 62 16 107/68 96 Exam: GENERAL: Mrs. Saldana is a 51 y/o white female that appears older than her stated age. She is thin and frail appearing. Speech and cognition is intact. Mood and affect is appropriate. Sleeping quietly in the hospital, in no acute distress. HEAD: Normocephalic; atraumatic. EYES: Pupils are round, equal, and reactive to light; EOM intact. ENT: No external ear discharge or lesions. No rhinorrhea or epistaxis. No mucosal lesions. NECK: Full ROM; trachea is midline CHEST: Regular chest respiration and excursion. ABDOMEN: Pump is located in the RLQ, non tender. EXTREMITIES: Decreased ROM of the left ankle with splint in place, distal sensation is intact, capillary refill is brisk. There is mild bruising of the left elbow with full ROM. PELVIS: There is tenderness of the left pubic region to palpation. NEURO: CN II-XII grossly intact with no focal deficits noted. Gait not observed. SKIN: No lesions, erythema, or rashes noted. Laboratory / Imaging Results Imagin05/11/16 Pelvis X-Ray IMPRESSION: 1. There are minimally distracted acute on chronic left pubic ring fractures with overlying soft tissue edema. 2. No additional acute fracture seen. 3. There is chronic posttraumatic deformity and postoperative change in the left proximal femur. Left forearm X-ray IMPRESSION: 1. No acute fracture is identified in the left forearm. 2. Osteopenia with chronic posttraumatic and postoperative change involving the wrist as above. Left Ankle 05/11/16 IMPRESSION: 1. Soft tissue swelling and joint effusion. The skeletal structures are heterogeneously osteopenic with no definite acute fracture seen. 2. A curvilinear density is identified just below the lateral malleolus, possibly representing an age-indeterminate avulsion injury. Correlate for point tenderness at this site. [place] Drug Monitoring Program Search Results: patient reviewed within database (Patient has been receiving ) Drug Monitoring Findings: There are many Hydromorphone pills and Fentanyl patches prescribed to the patient. #440 tablets of Hydromorphone this month. #7 Fentanyl patches this month. There are many private pays for medications. Several different providers. Opioid Risk Assessment Risk assessment performed, high risk identified (Patient does have a history of alcoholism and history of previous opioid overdose) Assessment 1. Fall 2. Left ankle pain 3. Acute on chronic pelvic fractures 4. Left elbow contusion 5. Diffuse myalgias and bilateral hip pain requiring the implantation of an intrathecal pump and catheter delivery system. 6. History of alcoholism and opioid overdose. Recommendations 1. Intrathecal pump was interrogated and pump has 16.7 reservoir volume and needs refilled no later than 09/16/2016. 2. Patient will continue PT/OT 3. Continue IV Dilaudid 2mg x 2 hours. 4. Would not recommend discharging the patient on narcotics as she does have a significant history of misuse and abuse of narcotic medications. 5. Recommend IV Toradol for pain in addition to regimen if not medically contraindicated. Dragon Voice Recognition This chart was completed in part utilizing [employer] Voice Recognition Software. Random word insertions, pronoun errors, and incomplete sentences are an occasional consequence of this system due to software limitations and ambient noise. Any questions or concerns about the content, text or information contained within the body of this dictation should be directly addressed to the provider for clarification. Additional Copies To Zoey Locke
[2016-05-13] MEDS: CALCIUM 600MG + VIT D 400 IU TAB PO SCH ×2 (09:49→21:06)
[2016-05-13 10:23] LABS: BASO ABS # 0.02 K/uL (0-0.2); COMPLETE YES; EOS % 3.4 %; LYMPH % 36.1 %; LYMPH ABS # 0.75 K/uL (1.2-3.4); MONO % 8.7 %; NEUT % 50.8 %
[2016-05-13] MEDS ORDERED: NURSING VERBAL MED ORDER ONE (10:45)
[2016-05-13] MEDS: SODIUM CHLORIDE 0.9% 1000ML 1,000 ML IV SCH ×2 (11:19→23:38)
--- NOTE | 2016-05-13 12:44 | Hospitalist Progress Note ---
Hospitalist Progress Note Date of Service May 13, 2016. Subjective Pt evaluation today including: conversation w/ patient, physical exam, chart review, lab review, review of inpatient medication list Voiding: no voiding problems, no incontinence +9/10 diffuse muscle/joint pain. Patient denies any dark/tarry stools, or noticeable blood with bowel movements.Patient denies any fever, chills, sweats, lightheadedness, dizziness, vision changes, CP, palpitations, edema, SOB, wheezing, cough, abdominal pain, nausea, vomiting, diarrhea, urinary symptoms, melena, numbness/tingling, weakness, anxiety/depression, active bleeding, or new skin discoloration/changes. Medications Current Inpatient Medications Medications (Trade) Dose Ordered Sig/Flori Route Start Time Stop Time Status Last Admin Dose Admin Enoxaparin Sodium (Lovenox Inj) 40 mg QAM SQ 05/12/16 09:00 06/11/16 08:59 05/13/16 11:14 40 MG Acetaminophen (Tylenol Tab) 650 mg Q4H PRN PO 05/11/16 23:15 06/10/16 23:14 Al Hydrox/Mg Hydrox/Simethicone (Maalox Max Susp) 15 ml Q4H PRN PO 05/11/16 23:15 06/10/16 23:14 Magnesium Hydroxide (Milk Of Magnesia Susp) 30 ml Q6H PRN PO 05/11/16 23:15 06/10/16 23:14 Polyethylene (Miralax Powder Packet) 17 gm DAILY PRN PO 05/11/16 23:15 06/10/16 23:14 Ondansetron HCl (Zofran Inj) 4 mg Q6H PRN IV 05/11/16 23:15 06/10/16 23:14 Diclofenac Sodium (Voltaren 1% Top Gel) 1 appln QID EXT 05/12/16 09:00 06/11/16 08:59 05/13/16 07:58 1 APPLN Lidocaine (Lidoderm Patch 5%) 1 patch QAM TD 05/12/16 09:00 06/11/16 08:59 05/13/16 07:59 1 PATCH Ondansetron HCl (Zofran Tab) 8 mg Q6 PRN PO 05/11/16 23:15 06/10/16 23:14 Miscellaneous (Remove Lidoderm Patch) 1 ea DAILY@21 N/A 05/12/16 21:00 06/11/16 20:59 05/12/16 21:09 1 EA Miscellaneous (Iv Fluids Completed) 1 ea PRN PRN N/A 05/12/16 02:45 05/12/17 02:44 Hydromorphone HCl 2 mg 2 mg Q2H PRN IV 05/12/16 10:00 05/26/16 09:59 05/13/16 10:20 2 MG Lorazepam/Syringe (Ativan Inj/ Syringe) 1 ml @ 0.5 mls/min Q6H PRN IV 05/12/16 09:15 06/11/16 09:14 05/13/16 01:06 0.5 MLS/MIN Calcium/Vitamin D 1 tab 1 tab BID PO 05/13/16 09:00 06/12/16 08:59 05/13/16 09:49 1 TAB Sodium Chloride (Nss 1000ml) 1,000 ml @ 75 mls/hr [id number] IV 05/13/16 10:45 06/12/16 10:44 05/13/16 11:19 75 MLS/HR Objective Vital Signs Date Time Temp Pulse Resp B/P Pulse Ox O2 Delivery O2 Flow Rate FiO2 05/13/16 08:11 Room Air 05/13/16 07:48 36.7 56 16 112/65 94 Room Air 05/13/16 00:01 37.0 62 16 107/68 96 Room Air 05/12/16 23:30 Room Air 05/12/16 20:00 Room Air 05/12/16 14:54 37.0 73 17 110/69 97 Room Air Physical Exam General Appearance: no apparent distress Eyes: normal inspection, PERRL ENT: hearing grossly normal Neck: supple Respiratory/Chest: lungs clear, no respiratory distress, no accessory muscle use Cardiovascular: regular rate, rhythm Abdomen: normal bowel sounds, soft, + tenderness (diffuse tenderness to light palpation ) Extremities: no pedal edema, no calf tenderness, + pertinent finding (left ankle brace on) Neurologic/Psychiatric: + depressed affect Skin: warm/dry, no rash, + pallor Laboratory Results Last 24 Hours Test 05/12/16 14:17 05/13/16 05:29 05/13/16 06:29 05/13/16 09:53 Erythrocyte Sedimentation Rate 6 mm/hr C-Reactive Protein < 0.29 mg/dl Lyme Disease IgG Antibody NEG Lyme Disease IgM Antibody NEG White Blood Count 2.08 K/uL Red Blood Count 3.57 M/uL Hemoglobin 7.6 g/dL Hematocrit 24.8 % Mean Corpuscular Volume 69.5 fL Mean Corpuscular Hemoglobin 21.3 pg Mean Corpuscular Hemoglobin Concent 30.6 g/dl Platelet Count 115 K/uL Mean Platelet Volume 9.4 fL Neutrophils (%) (Auto) 50.8 % Lymphocytes (%) (Auto) 36.1 % Monocytes (%) (Auto) 8.7 % Eosinophils (%) (Auto) 3.4 % Basophils (%) (Auto) 1.0 % Neutrophils # (Auto) 1.06 K/uL Lymphocytes # (Auto) 0.75 K/uL Monocytes # (Auto) 0.18 K/uL Eosinophils # (Auto) 0.07 K/uL Basophils # (Auto) 0.02 K/uL RDW Standard Deviation 47.7 fL RDW Coefficient of Variation 18.7 % Immature Granulocyte % (Auto) 0.0 % Immature Granulocyte # (Auto) 0.00 K/uL Prothrombin Time 13.7 SECONDS Prothromb Time International Ratio 1.3 Sodium Level 143 mmol/L Potassium Level 3.6 mmol/L Chloride Level 111 mmol/L Carbon Dioxide Level 25 mmol/L Anion Gap 7.0 mmol/L Blood Urea Nitrogen 9 mg/dl Creatinine 0.48 mg/dl Est Creatinine Clear Calc Drug Dose 123.4 ml/min Estimated GFR () 130.7 Estimated GFR (Non- 112.8 BUN/Creatinine Ratio 19.7 Random Glucose 90 mg/dl Calcium Level 8.0 mg/dl Iron Level 14 mcg/dl Total Iron Binding Capacity 417 mcg/dl Ferritin 11.4 ng/ml Total Bilirubin 0.8 mg/dl Direct Bilirubin 0.3 mg/dl Aspartate Amino Transf (AST/SGOT) 17 U/L Alanine Aminotransferase (ALT/SGPT) 17 U/L Alkaline Phosphatase 144 U/L Total Protein 6.0 gm/dl Albumin 2.9 gm/dl 25-Hydroxy Vitamin D Total 21.6 ng/ml Assessment and Plan This is a 51 y/o F with a history of MS who presents after a Fall 2 days ago. She reports that she slipped on the linoleum at home when she was moving in her new apartment. She attempted to get up but fell again. She currently has pain in her left foot, pelvis and left arm. She denies pre-syncope / syncope/ LOC/ chest pain, shortness of breath. She is unable to bear weight on her left foot. She also has some bruising on her left elbow region. Ambulatory dysfunction s/p fall: - Admit to med/surg - Imaging: -- Humerus fracture- Osteopenia with no radiographic evidence of left humeral fracture. Soft tissue swelling is noted above the elbow. -- Hip/pelvic fracture- There are minimally distracted acute on chronic left pubic ring fractures with overlying soft tissue edema. No additional acute fracture seen. There is chronic posttraumatic deformity and postoperative change in the left proximal femur. -- Left forearm- No acute fracture is identified in the left forearm. Osteopenia with chronic posttraumatic and postoperative change involving the wrist as above. -- Left ankle- Soft tissue swelling and joint effusion. The skeletal structures are heterogeneously osteopenic with no definite acute fracture seen. A curvilinear density is identified just below the lateral malleolus, possibly representing an age-indeterminate avulsion injury. Correlate for point tenderness at this site. Osteopenia and degenerative change as above. - Consult PT/OT - IV Dilaudid 2 mg q2 hrs PRN for pain control - Vitamin D of 21.6 -- begin Vitamin D supplement on 05/13 Chronic diffuse body pain/MS: - Consult pain management, appreciate recommendations--> recommend no narcotics at discharge, IV Toradol- will avoid, pt states she allergic -- According to patient, was taking Dilaudid PO 6 mg q2 hrs at home. Records reviewed, last prescription given was Dilaudid 2 mg PO x10 days (finished 5 days ago). Multiple narcotic prescriptions noted. -- Nursing staff reports that patient was complaining that no PCP will give her pain prescriptions - IV Dilaudid, Voltaren gel, and Lidoderm patch - Check ESR, CRP, and Lyme disease titers- unremarkable - ERNIE screen pending Anxiety: Ativan 1 mg IV q6 hrs PRN Alcoholic cirrhosis: - INR of 1.2- appears baseline per records - Follow PT/INR - Reviewed LFTs- stable Thrombocytopenia, chronic- stable: - Follow CBC - Iron panel- iron 14, TIBC 417, ferritin 11.4 -- begin Ferrous Sulfate 325 mg PO BID on 05/13 - Check b12/folate - Check stool heme occult GI Prophylaxis: Maalox PRN, IV Zofran PRN, Colace and/or Milk of Mag PRN DVT prophylaxis: GUIDO and SCDs, hold chemical therapy due to thrombocytopenia Code Status: LEVEL I, FULL Dispo: - PT/OT evaluations--> Recommend returning back to [facility]. greeter guest services consulted - Hopeful discharge to [facility] in the next 1-2 days
[2016-05-13 15:00] LABS: HEMATOCRIT 26.8 % (37-47)
[2016-05-13] MEDS ORDERED: PANTOprazole INJ 40 MG in SYRINGE 0 ML IV ONE (15:15)
--- NOTE | 2016-05-13 15:23 | Gastrointestinal Consultation ---
Gastrointestinal Consultation Date of Consultation: May 13, 2016 Consulting Physician: Efra Reason for Consultation: anemia, + occult blood History of Present Illness Patient is a 51 year old female with past medical history significant for anxiety, hypothyroidism, depression, alcoholic cirrhosis, anemia, fibromyalgia, MS, chronic back pain, s/p cholecystectomy 2014, s/p gastric bypass 20 years ago in [place] and GERD who presents to the ED after a fall. GI is consulted for anemia and + stool for occult blood. Patient was seen and examined. She was doing well until she had a fall recently. She reports a lengthy history of BRBPR starting around 2013. This is always painless rectal bleeding, occurs intermittently without any other symptoms. No abdominal pain, chest pain, SOB, lightheadedness or dizziness. Stools have been alternating between green and black as reported by the patient. She experiences constant nausea and intermittent bouts of vomiting - triggered every time after she eats. This is always undigested food, no hematemesis or coffee ground emesis. Food always sticks when she swallows. Denies this sensation currently. 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 This was set up to be revised, however, patient did not follow up with this. History of ETOH abuse, she is denying any ETOH use in the past year. No NSAIDs. She does not follow up with [facility] as an outpatient - unsure about other practices. 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 proceed with cholecystectomy EGD 07/26/14: normal examined jejunum, empiric dilation, follow up as needed EGD 06/18/14: could not pass 9mm scope, dilation, repeat if symptoms EGD 05/21/14: could not pass 9mm scope, dilation at stricture repeat in 2-3 weeks EGD 04/22/14: dilation at stricture, repeat in 1 week EGD 04/01/14: dilation at stricture, repeat in 1 week EGD 03/26/14: dilation at stricture, repeat in 1 week, consult surgery EGD 03/01/14: dilation at stricture repeat in 2 weeks EGD 02/27/14: dilation at stricture repeat in 2 weeks EGD 02/18/14: could not pass through stenotic gastrojejunal anastomosis Colonoscopy 02/18/14: entire examined colon is normal, normal ileum Past Medical/Surgical History Medical Problems: (1) Alcohol dependence Status: Acute (2) Alcohol intoxication Status: Acute (3) Ankle fracture, lateral malleolus, closed Status: Acute (4) Chronic abdominal pain Status: Acute (5) Failure of outpatient treatment Status: Acute (6) Fever Status: Acute (7) Head injury Status: Acute (8) Hyperbilirubinemia Status: Acute (9) Hypokalemia Status: Acute (10) Hypomagnesemia Status: Acute (11) Jaundice Status: Acute (12) Left elbow pain Status: Acute (13) Pelvic ring fracture Status: Acute (14) Urinary tract infection Status: Acute (15) Vomiting Status: Acute Family History Cancer FHx: aneurysm FHx: stroke Social History Smoking Status: Never Smoker Alcohol Use: heavy Drug Use: none Marital Status: Housing Status: lives alone Occupation Status: unemployed Allergies Coded Allergies: Clarithromycin (Verified Allergy, Intermediate, HIVES, 05/11/16) Aspirin (Verified Allergy, Mild, 05/11/16) Tramadol (Verified Allergy, Mild, 05/11/16) Oxaprozin (Verified Allergy, Unknown, 05/11/16) Current Medications Home Meds and Scripts Medications Dose Route/Sig Max Daily Dose Days Date Category Lidocaine 1 Patch Tdsy 1 Patch TD QAM 12/05/15 Rx Voltaren (Diclofenac Sod) 100 Appln/100 Gm Gel 1 Appln EXT QID 12/05/15 Rx Lorazepam 1 Mg Tab 1 Mg PO Q4 PRN 12/05/15 Rx Hydromorphone HCl 2 Mg Tab 6 Mg PO Q2H PRN 12/05/15 Rx Zofran (Ondansetron HCl) 4 Mg Tab 8 Mg PO Q6 PRN 10/16/15 Reported Review of Systems Constitutional: No chills, No fever Abdomen: + GI bleeding, + nausea, + vomiting, No constipation, No diarrhea, No pain Physical Exam Date Time Temp Pulse Resp B/P Pulse Ox O2 Delivery O2 Flow Rate FiO2 05/13/16 08:11 Room Air 05/13/16 07:48 36.7 56 16 112/65 94 Room Air 05/13/16 00:01 37.0 62 16 107/68 96 Room Air 05/12/16 23:30 Room Air 05/12/16 20:00 Room Air General Appearance: + mild distress (patient is constantly moving in bed, reports leg and arm pain) Eyes: PERRL ENT: hearing grossly normal Neck: supple, trachea midline Respiratory/Chest: lungs clear, no respiratory distress, no accessory muscle use Cardiovascular: regular rate, rhythm, no JVD, no murmur Abdomen: normal bowel sounds, soft, no organomegaly, no pulsatile mass, + tenderness (diffuse tenderness) Neurologic/Psych: alert, normal mood/affect, oriented x 3 Skin: no jaundice, warm/dry, no rash Laboratory Results Last 24 Hours Test 05/13/16 05:29 05/13/16 06:29 05/13/16 09:53 05/13/16 13:45 White Blood Count 2.08 K/uL Red Blood Count 3.57 M/uL Hemoglobin 7.6 g/dL Hematocrit 24.8 % Mean Corpuscular Volume 69.5 fL Mean Corpuscular Hemoglobin 21.3 pg Mean Corpuscular Hemoglobin Concent 30.6 g/dl Platelet Count 115 K/uL Mean Platelet Volume 9.4 fL Neutrophils (%) (Auto) 50.8 % Lymphocytes (%) (Auto) 36.1 % Monocytes (%) (Auto) 8.7 % Eosinophils (%) (Auto) 3.4 % Basophils (%) (Auto) 1.0 % Neutrophils # (Auto) 1.06 K/uL Lymphocytes # (Auto) 0.75 K/uL Monocytes # (Auto) 0.18 K/uL Eosinophils # (Auto) 0.07 K/uL Basophils # (Auto) 0.02 K/uL RDW Standard Deviation 47.7 fL RDW Coefficient of Variation 18.7 % Immature Granulocyte % (Auto) 0.0 % Immature Granulocyte # (Auto) 0.00 K/uL Prothrombin Time 13.7 SECONDS Prothromb Time International Ratio 1.3 Sodium Level 143 mmol/L Potassium Level 3.6 mmol/L Chloride Level 111 mmol/L Carbon Dioxide Level 25 mmol/L Anion Gap 7.0 mmol/L Blood Urea Nitrogen 9 mg/dl Creatinine 0.48 mg/dl Est Creatinine Clear Calc Drug Dose 123.4 ml/min Estimated GFR () 130.7 Estimated GFR (Non- 112.8 BUN/Creatinine Ratio 19.7 Random Glucose 90 mg/dl Calcium Level 8.0 mg/dl Iron Level 14 mcg/dl Total Iron Binding Capacity 417 mcg/dl Ferritin 11.4 ng/ml Total Bilirubin 0.8 mg/dl Direct Bilirubin 0.3 mg/dl Aspartate Amino Transf (AST/SGOT) 17 U/L Alanine Aminotransferase (ALT/SGPT) 17 U/L Alkaline Phosphatase 144 U/L Total Protein 6.0 gm/dl Albumin 2.9 gm/dl 25-Hydroxy Vitamin D Total 21.6 ng/ml Stool Occult Blood POSITIVE Test 05/13/16 14:52 Impression Patient is a 51 year old female with anemia (HGB of 7.6 --> 8.4) in the setting of rectal bleeding and + occult blood. Advised colonoscopy/EGD for evaluation. Patient is not agreeable to a colonoscopy and would like to discuss this with her family first. Plan NPO after midnight EGD tomorrow - patient is not agreeable to a colonoscopy IV PPI BID IVF for hydration Trend H&H monitor stools transfuse if needed Call with questions I have seen and examined the patient with with Nicole Calvert whose note reflects our findings and plan. Patient admitted after a fall. Has a history of stricture at surgical site. Last EGD was 11/29. This can be done as an outpatient once she recovers from her current illness.
[2016-05-13 15:47] VITALS: BP 115/63; PULSE 70; TEMP 37; O2SAT 97
[2016-05-13] MEDS: FERROUS SULFATE 325 MG TAB PO SCH (18:13)
[2016-05-13] MEDS: PANTOprazole INJ 40 MG in SYRINGE 0 ML IV SCH (21:07)
[2016-05-13 23:13] LABS: HEMATOCRIT 24.9 % (37-47)
[2016-05-13 23:24] VITALS: BP 135/80; PULSE 63; TEMP 36.9; O2SAT 95
[2016-05-13 23:40] LABS: URINE APPEARANCE CLOUDY (CLEAR); URINE BILIRUBIN NEG (NEG); URINE COLOR DK YELLOW; URINE NITRITE POS (NEG); URINE PH 6.5 (4.5-7.5); UROBILINOGEN NEG (NEG); ZZUR CULT IF INDIC CLEAN CATCH YES
[2016-05-13 23:51] LABS: MANUAL MICROSCOPIC REQUIRED? NO; REVIEW REQ? NO
[2016-05-14] MEDS: HYDROmorphone INJ 2 MG/ML SYR/VIAL IV PRN ×6 (01:43→22:15)
[2016-05-14] MEDS: CEFTRIAXONE SOD INJ 2,000 MG in DEXTROSE 5% 50ML 50 ML IV SCH (02:31)
[2016-05-14] MEDS: LORAZEPAM INJ 1 MG in SYRINGE 0.5 ML IV PRN (04:15)
[2016-05-14 06:42] LABS: INR 1.2 (0.9-1.1); PROTHROMBIN TIME (PATIENT) 13.4 SECONDS (9.0-12.0)
[2016-05-14 06:56] LABS: BUN/CREATININE RATIO 18.7 (10-20); CALCIUM 7.9 mg/dl (8.5-10.1); CREATININE 0.46 mg/dl (0.60-1.20); POTASSIUM 3.4 mmol/L (3.5-5.1)
[2016-05-14 07:10] VITALS: BP 161/81; PULSE 69; TEMP 36.7; O2SAT 97
[2016-05-14] MEDS: CALCIUM 600MG + VIT D 400 IU TAB PO SCH ×2 (07:43→21:00)
[2016-05-14] MEDS: FERROUS SULFATE 325 MG TAB PO SCH ×2 (07:43→17:28)
[2016-05-14] MEDS: PANTOprazole INJ 40 MG in SYRINGE 0 ML IV SCH ×2 (07:50→22:15)
[2016-05-14] MEDS: DICLOFENAC SOD 1% GEL 100 GM TUBE EXT SCH ×4 (07:50→20:29)
[2016-05-14] MEDS: LIDODERM (LIDOCAINE) PATCH 5% TD SCH (07:51)
[2016-05-14] MEDS ORDERED: POTASSIUM CHLORIDE 20 MEQ TABCR PO ONE (11:30)
--- NOTE | 2016-05-14 11:33 | Hospitalist Progress Note ---
Hospitalist Progress Note Date of Service May 14, 2016. Subjective Pt evaluation today including: conversation w/ patient, physical exam, chart review, lab review, review of inpatient medication list Voiding: no voiding problems, no incontinence Patient continues to complain of diffuse 9/10 muscle/joint pain. NPO for EGD today. Patient denies any fever, chills, sweats, lightheadedness, dizziness, vision changes, CP, palpitations, edema, SOB, wheezing, cough, abdominal pain, nausea, vomiting, diarrhea, urinary symptoms, melena, numbness/tingling, weakness, anxiety/depression, active bleeding, or new skin discoloration/ changes. Medications Current Inpatient Medications Medications (Trade) Dose Ordered Sig/Flori Route Start Time Stop Time Status Last Admin Dose Admin Acetaminophen (Tylenol Tab) 650 mg Q4H PRN PO 05/11/16 23:15 06/10/16 23:14 Al Hydrox/Mg Hydrox/Simethicone (Maalox Max Susp) 15 ml Q4H PRN PO 05/11/16 23:15 06/10/16 23:14 Magnesium Hydroxide (Milk Of Magnesia Susp) 30 ml Q6H PRN PO 05/11/16 23:15 06/10/16 23:14 Polyethylene (Miralax Powder Packet) 17 gm DAILY PRN PO 05/11/16 23:15 06/10/16 23:14 Ondansetron HCl (Zofran Inj) 4 mg Q6H PRN IV 05/11/16 23:15 06/10/16 23:14 Diclofenac Sodium (Voltaren 1% Top Gel) 1 appln QID EXT 05/12/16 09:00 06/11/16 08:59 05/14/16 07:50 1 APPLN Lidocaine (Lidoderm Patch 5%) 1 patch QAM TD 05/12/16 09:00 06/11/16 08:59 05/14/16 07:51 1 PATCH Ondansetron HCl (Zofran Tab) 8 mg Q6 PRN PO 05/11/16 23:15 06/10/16 23:14 Miscellaneous (Remove Lidoderm Patch) 1 ea DAILY@21 N/A 05/12/16 21:00 06/11/16 20:59 05/13/16 21:19 1 EA Miscellaneous (Iv Fluids Completed) 1 ea PRN PRN N/A 05/12/16 02:45 05/12/17 02:44 Hydromorphone HCl 2 mg 2 mg Q2H PRN IV 05/12/16 10:00 05/26/16 09:59 05/14/16 10:26 2 MG Lorazepam/Syringe (Ativan Inj/ Syringe) 1 ml @ 0.5 mls/min Q6H PRN IV 05/12/16 09:15 06/11/16 09:14 05/14/16 04:15 0.5 MLS/MIN Calcium/Vitamin D 1 tab 1 tab BID PO 05/13/16 09:00 06/12/16 08:59 05/13/16 21:06 1 TAB Sodium Chloride (Nss 1000ml) 1,000 ml @ 70 mls/hr [id number] IV 05/13/16 10:45 06/12/16 10:44 05/13/16 23:38 70 MLS/HR Ferrous Sulfate 325 mg 325 mg BIDM PO 05/13/16 17:45 06/12/16 17:44 05/13/16 18:13 325 MG Pantoprazole Sodium 40 mg/ Syringe 10 ml @ 5 mls/min DAILY@09,21 IV 05/13/16 21:00 05/15/16 07:00 05/14/16 07:50 5 MLS/MIN Ceftriaxone Sodium/Dextrose (Rocephin Inj/D5 50ml) 70 ml @ 100 mls/hr Q24H IV 05/14/16 02:00 05/19/16 01:59 05/14/16 02:31 100 MLS/HR Potassium Chloride (Klor-Con Tab) 20 meq NOW ONCE PO 05/14/16 11:30 05/14/16 11:31 UNV Pantoprazole Sodium (Protonix Tab) 40 mg QAM PO 05/15/16 09:00 06/14/16 08:59 UNV Objective Vital Signs Date Time Temp Pulse Resp B/P Pulse Ox O2 Delivery O2 Flow Rate FiO2 05/14/16 08:00 Room Air 05/14/16 07:10 36.7 69 17 161/81 97 Room Air 05/13/16 23:24 36.9 63 18 135/80 95 Room Air 05/13/16 20:30 Room Air 05/13/16 15:47 37.0 70 16 115/63 97 Physical Exam General Appearance: no apparent distress Eyes: normal inspection, PERRL ENT: hearing grossly normal Neck: supple Respiratory/Chest: lungs clear, no respiratory distress, no accessory muscle use Cardiovascular: regular rate, rhythm Abdomen: normal bowel sounds, non tender, soft Extremities: no pedal edema, + pertinent finding (SCDs on; left ankle brace on ) Neurologic/Psychiatric: alert, oriented x 3, + depressed affect Skin: warm/dry, no rash, + pallor Laboratory Results Last 24 Hours Test 05/13/16 13:45 05/13/16 14:52 05/13/16 23:05 05/14/16 06:05 Stool Occult Blood POSITIVE Hemoglobin 8.4 g/dL 7.7 g/dL Hematocrit 26.8 % 24.9 % Prothrombin Time 13.4 SECONDS Prothromb Time International Ratio 1.2 Sodium Level 142 mmol/L Potassium Level 3.4 mmol/L Chloride Level 111 mmol/L Carbon Dioxide Level 23 mmol/L Anion Gap 8.0 mmol/L Blood Urea Nitrogen 9 mg/dl Creatinine 0.46 mg/dl Est Creatinine Clear Calc Drug Dose 128.7 ml/min Estimated GFR () 132.6 Estimated GFR (Non- 114.4 BUN/Creatinine Ratio 18.7 Random Glucose 88 mg/dl Calcium Level 7.9 mg/dl Vitamin B12 Level 787 pg/mL Folate > 24.00 ng/mL Assessment and Plan This is a 51 y/o F with a history of MS who presents after a Fall 2 days ago. She reports that she slipped on the linoleum at home when she was moving in her new apartment. She attempted to get up but fell again. She currently has pain in her left foot, pelvis and left arm. She denies pre-syncope / syncope/ LOC/ chest pain, shortness of breath. She is unable to bear weight on her left foot. She also has some bruising on her left elbow region. Ambulatory dysfunction s/p fall: - Admit to med/surg - Imaging: -- Humerus fracture- Osteopenia with no radiographic evidence of left humeral fracture. Soft tissue swelling is noted above the elbow. -- Hip/pelvic fracture- There are minimally distracted acute on chronic left pubic ring fractures with overlying soft tissue edema. No additional acute fracture seen. There is chronic posttraumatic deformity and postoperative change in the left proximal femur. -- Left forearm- No acute fracture is identified in the left forearm. Osteopenia with chronic posttraumatic and postoperative change involving the wrist as above. -- Left ankle- Soft tissue swelling and joint effusion. The skeletal structures are heterogeneously osteopenic with no definite acute fracture seen. A curvilinear density is identified just below the lateral malleolus, possibly representing an age-indeterminate avulsion injury. Correlate for point tenderness at this site. Osteopenia and degenerative change as above. - Consult PT/OT - IV Dilaudid 2 mg q2 hrs PRN for pain control - Vitamin D of 21.6 -- begin Vitamin D supplement on 05/13 Chronic diffuse body pain/MS: - Consult pain management, appreciate recommendations--> recommend NO narcotics at discharge, IV Toradol- will avoid, pt states she allergic -- According to patient, was taking Dilaudid PO 6 mg q2 hrs at home. Records reviewed, last prescription given was Dilaudid 2 mg PO x10 days (finished 5 days ago). Multiple narcotic prescriptions noted. -- Nursing staff reports that patient was complaining that no PCP will give her pain prescriptions - IV Dilaudid, Voltaren gel, and Lidoderm patch - Check ESR, CRP, ERNIE screen, and Lyme disease titers- unremarkable UTI: - U/A dirty, UCx pending - IV Rocephin (started on 05/14) Mild hypokalemia at 3.4 on 05/14: - KCL 20 mEq PO supplement - Follow PRP, replete PRN Anxiety: Ativan 1 mg IV q6 hrs PRN Alcoholic cirrhosis: - INR of 1.2- appears baseline per records - Follow PT/INR - Reviewed LFTs- stable Thrombocytopenia, chronic- stable: - Follow CBC - Iron panel- iron 14, TIBC 417, ferritin 11.4 -- begin Ferrous Sulfate 325 mg PO BID on 05/13 - Check b12/folate - Stool heme occult positive on 05/13: -- Repeat H&H q8 hrs x2- stable -- Start IV Protonix BID on 05/13--> transition to Protonix 40 mg PO daily on 05/15 -- Consult GI, appreciate recommendations -- EGD planned for 05/14 cancelled. Planning for outpatient EGD/? colonoscopy GI Prophylaxis: Maalox PRN, IV Zofran PRN, Colace and/or Milk of Mag PRN DVT prophylaxis: GUIDO and SCDs, hold chemical therapy due to thrombocytopenia Code Status: LEVEL I, FULL Dispo: - PT/OT evaluations--> recommend returning back to [facility]. financial services counselor consulted- patient cannot return to [facility]; [facility] referral pending
[2016-05-14] MEDS: HYDROmorphone HCL 2 MG TAB PO PRN ×3 (12:21→19:45)
--- NOTE | 2016-05-14 12:44 | Progress Note ---
Progress Note Date of Service May 14, 2016. Progress Note 0800: Pt seen and examined this morning. No acute events overnight. No fever, chills, chest pain, SOB, abdominal pain, black/bloody stools 1230: Inpatient EGD canceled. We will set up for outpatient EGD (w/ colonoscopy if pt agreeable). No GI contraindications to discharge if HGB is stable and no evidence of active GI bleed. GI ok to advance diet as tolerated.
[2016-05-14] MEDS ORDERED: NURSING VERBAL MED ORDER ONE (13:00)
[2016-05-14] MEDS: LORAZEPAM 1 MG TAB PO PRN ×2 (13:15→20:31)
[2016-05-14] MEDS: SODIUM CHLORIDE 0.9% 1000ML 1,000 ML IV SCH (14:02)
[2016-05-14 15:09] VITALS: BP 132/75; PULSE 71; TEMP 36.8; O2SAT 96
[2016-05-14 21:08] VITALS: BP 143/79; PULSE 74; TEMP 37.2; O2SAT 98
[2016-05-14 23:02] VITALS: BP 119/69; PULSE 67; TEMP 37.1; O2SAT 96
[2016-05-15] MEDS: HYDROmorphone HCL 2 MG TAB PO PRN ×4 (01:23→12:49)
[2016-05-15] MEDS: CEFTRIAXONE SOD INJ 2,000 MG in DEXTROSE 5% 50ML 50 ML IV SCH (01:24)
[2016-05-15] MEDS: LORAZEPAM 1 MG TAB PO PRN ×3 (02:00→11:24)
[2016-05-15] MEDS: HYDROmorphone INJ 2 MG/ML SYR/VIAL IV PRN ×2 (04:07→09:06)
[2016-05-15] MEDS: SODIUM CHLORIDE 0.9% 1000ML 1,000 ML IV SCH (04:07)
[2016-05-15 06:35] LABS: MEAN CORPUSCULAR HGB CONC 31.3 g/dl (32-36)
[2016-05-15 06:42] LABS: HEMATOCRIT 24.6 % (37-47); MEAN CELL VOLUME 68.5 fL (80-100); MEAN CORPUSCULAR HEMOGLOBIN 21.4 pg (25-34); RED BLOOD COUNT 3.59 M/uL (4.2-5.4); WHITE BLOOD COUNT 1.66 K/uL (4.8-10.8)
[2016-05-15 06:44] LABS: INR 1.3 (0.9-1.1); PROTHROMBIN TIME (PATIENT) 13.7 SECONDS (9.0-12.0)
[2016-05-15 07:00] VITALS: BP 128/82; PULSE 78; TEMP 36.5; O2SAT 97
[2016-05-15 07:01] LABS: MEAN PLATELET VOLUME 8.7 fL (7.4-10.4); PLATELET COUNT 82 K/uL (130-400); PLT ESTIMATE DECREASED
[2016-05-15 07:07] LABS: BUN/CREATININE RATIO 12.6 (10-20); CALCIUM 7.7 mg/dl (8.5-10.1); CREATININE 0.45 mg/dl (0.60-1.20); POTASSIUM 3.6 mmol/L (3.5-5.1)
[2016-05-15] MEDS: LIDODERM (LIDOCAINE) PATCH 5% TD SCH (08:47)
[2016-05-15] MEDS: CALCIUM 600MG + VIT D 400 IU TAB PO SCH (08:47)
[2016-05-15] MEDS: DICLOFENAC SOD 1% GEL 100 GM TUBE EXT SCH ×2 (08:47→12:50)
[2016-05-15] MEDS: FERROUS SULFATE 325 MG TAB PO SCH (08:47)
[2016-05-15] MEDS ORDERED: PANTOprazole SOD 40 MG TAB PO SCH (09:00)
[2016-05-15] MEDS ORDERED: NURSING VERBAL MED ORDER ONE ×2 (09:15→13:30)
[2016-05-15] MEDS: CEPHALEXIN MONOHYDRATE 500 MG CAP PO SCH ×2 (10:16→13:37)
--- NOTE | 2016-05-15 10:42 | Progress Note ---
Subjective Date of Service: May 15, 2016. Subjective Pt evaluation today including: conversation w/ patient, physical exam, chart review, lab review, review of studies, conversation w/ architectural sales consultant, review of inpatient medication list Reported still has a lot of pain in left groin area, otherwise has been up with help, requested IV pain medicine x1 this morning, otherwise smiling conversational, Problem List Medical Problems: (1) Alcohol dependence Status: Acute (2) Alcohol intoxication Status: Acute (3) Ankle fracture, lateral malleolus, closed Status: Acute (4) Chronic abdominal pain Status: Acute (5) Failure of outpatient treatment Status: Acute (6) Fever Status: Acute (7) Head injury Status: Acute (8) Hyperbilirubinemia Status: Acute (9) Hypokalemia Status: Acute (10) Hypomagnesemia Status: Acute (11) Jaundice Status: Acute (12) Left elbow pain Status: Acute (13) Pelvic ring fracture Status: Acute (14) Urinary tract infection Status: Acute (15) Vomiting Status: Acute Review of Systems Constitutional: No chills, No fatigue, No fever, No problem reported, No sweats , No weakness, No weight loss Eyes: No diplopia, No discharge, No eye pain, No redness, No worsening of vision ENT: No dental problems, No hearing loss, No nasal symptoms, No sore throat, No tinnitus, No trouble swallowing, No unusual epistaxis Respiratory: No cough, No dyspnea at rest, No dyspnea on exertion, No hemoptysis, No shortness of breath, No sputum, No wheezing Cardiac: No PND, No chest pain, No claudication, No edema, No orthopnea, No palpitations Abdomen: No constipation, No diarrhea, No nausea, No pain, No vomiting Musculoskeletal: + joint pain, No calf pain, No muscle pain, No swelling Female : No abnormal vaginal bleeding, No dysuria, No hematuria, No incontinence, No urinary frequency, No vaginal discharge Neurologic: No balance problems, No memory loss, No numbness/tingling, No paralysis, No vertigo, No weakness Psychiatric: No anhedonism, No anxiety, No depression symptoms, No insomnia, No substance abuse Heme: No abnormal bleeding/bruising, No clotting problems, No night sweats, No swollen lymph nodes Endo: No excessive thirst, No excessive urination, No fatigue Skin: No bleeding, No color change, No itch, No new/changing skin lesions, No rash Objective Vital Signs Date Time Temp Pulse Resp B/P Pulse Ox O2 Delivery O2 Flow Rate FiO2 05/15/16 07:18 Room Air 05/15/16 07:00 36.5 78 18 128/82 97 Room Air 05/14/16 23:55 Room Air 05/14/16 23:02 37.1 67 18 119/69 96 Room Air 05/14/16 21:08 37.2 74 18 143/79 98 Room Air 05/14/16 19:35 Room Air 05/14/16 15:09 36.8 71 16 132/75 96 Room Air Physical Exam General Appearance: WD/WN, no apparent distress, + thin, + pertinent finding ( mild pale) Eyes: normal inspection, PERRL, EOMI, sclerae normal ENT: normal ENT inspection, hearing grossly normal, pharynx normal Neck: supple, no adenopathy, thyroid normal, no JVD, no carotid bruits, trachea midline Respiratory/Chest: chest non-tender, normal breath sounds, no respiratory distress, no accessory muscle use, + decreased breath sounds Cardiovascular: regular rate, rhythm, no edema, no gallop, no JVD, no murmur Abdomen: normal bowel sounds, non tender, soft, no organomegaly, no pulsatile mass Extremities: normal range of motion, non-tender, normal inspection, no pedal edema, no calf tenderness, normal capillary refill, pelvis stable Neurologic/Psychiatric: principal system software engineer II-XII nml as tested, no motor/sensory deficits, alert, normal mood/affect, oriented x 3 Skin: normal color, + pertinent finding (right lateral elbow skin bluish is better) Lymphatic: no adenopathy Laboratory Results Last 24 Hours Test 05/15/16 06:22 White Blood Count 1.66 K/uL Red Blood Count 3.59 M/uL Hemoglobin 7.7 g/dL Hematocrit 24.6 % Mean Corpuscular Volume 68.5 fL Mean Corpuscular Hemoglobin 21.4 pg Mean Corpuscular Hemoglobin Concent 31.3 g/dl RDW Standard Deviation 47.2 fL RDW Coefficient of Variation 18.7 % Platelet Count 82 K/uL Mean Platelet Volume 8.7 fL Platelet Estimate DECREASED Prothrombin Time 13.7 SECONDS Prothromb Time International Ratio 1.3 Sodium Level 143 mmol/L Potassium Level 3.6 mmol/L Chloride Level 112 mmol/L Carbon Dioxide Level 23 mmol/L Anion Gap 8.0 mmol/L Blood Urea Nitrogen 6 mg/dl Creatinine 0.45 mg/dl Est Creatinine Clear Calc Drug Dose 131.6 ml/min Estimated GFR () 133.5 Estimated GFR (Non- 115.2 BUN/Creatinine Ratio 12.6 Random Glucose 90 mg/dl Calcium Level 7.7 mg/dl Magnesium Level 2.0 mg/dl Assessment and Plan This is a 51 y/o F with a history of MS who presents after a Fall 2 days prior to the admission. She reports that she slipped on the linoleum at home when she was moving in her new apartment. She attempted to get up but fell again. She currently has pain in her left foot, pelvis and left arm. She denies pre- syncope / syncope/ LOC/ chest pain, shortness of breath. She is unable to bear weight on her left foot. She also has some bruising on her left elbow region. Ambulatory dysfunction s/p fall: With pain, is better controlled - Imaging: -- Humerus fracture- Osteopenia with no radiographic evidence of left humeral fracture. Soft tissue swelling is noted above the elbow. -- Hip/pelvic fracture- There are minimally distracted acute on chronic left pubic ring fractures with overlying soft tissue edema. No additional acute fracture seen. There is chronic posttraumatic deformity and postoperative change in the left proximal femur. -- Left forearm- No acute fracture is identified in the left forearm. Osteopenia with chronic posttraumatic and postoperative change involving the wrist as above. -- Left ankle- Soft tissue swelling and joint effusion. The skeletal structures are heterogeneously osteopenic with no definite acute fracture seen. A curvilinear density is identified just below the lateral malleolus, possibly representing an age-indeterminate avulsion injury. Correlate for point tenderness at this site. Osteopenia and degenerative change as above. -Has been on PT/OT -Has been on IV Dilaudid 2 mg q2 hrs PRN for pain control, discontinue IV after discussed with patient keep oral Dilaudid available as needed - Vitamin D of 21.6 -- begin Vitamin D supplement on 05/13 Chronic diffuse body pain/MS: - Consult pain management, appreciate recommendations--> recommend NO narcotics at discharge, IV Toradol- will avoid, pt states she allergic -- According to patient, was taking Dilaudid PO 6 mg q2 hrs at home. Records reviewed, last prescription given was Dilaudid 2 mg PO x10 days (finished 5 days ago). Multiple narcotic prescriptions noted. -- Nursing staff reports that patient was complaining that no PCP will give her pain prescriptions - Voltaren gel, and Lidoderm patch - Check ESR, CRP, ERNIE screen, and Lyme disease titers- unremarkable UTI: - U/A dirty, UCx pending - IV Rocephin (started on 05/14) was changed to Keflex, 2 out of 7 days Mild hypokalemia at 3.4 on 05/14: Replaced Anxiety: Has been on Ativan 1 mg IV q6 hrs PRN, has changed to oral as needed Alcoholic cirrhosis: - INR of 1.2- appears baseline per records - Follow PT/INR - Reviewed LFTs- stable Pancytopenia and Thrombocytopenia, today's white count is low, likely in the baseline, I feel it is chronic- stable: - Need to Follow CBC after arriving to [facility] - Iron panel- iron 14, TIBC 417, ferritin 11.4 -- begin Ferrous Sulfate 325 mg PO BID on 05/13 - Check b12/folate - Stool heme occult positive on 05/13: -- Repeat H&H q8 hrs x2- stable -- Start IV Protonix BID on 05/13--> transition to Protonix 40 mg PO daily on 05/15 -- Consult GI, appreciate recommendations -- EGD planned for 05/14 cancelled. Planning for outpatient EGD/? colonoscopy GI Prophylaxis: Maalox PRN, IV Zofran PRN, Colace and/or Milk of Mag PRN DVT prophylaxis: GUIDO and SCDs, hold chemical therapy due to thrombocytopenia Code Status: LEVEL I, FULL Dispo: - PT/OT evaluations--> - Per social work professor, only [facility] accept him patient, she agreed to go if bed available today, has talked to nurse and case liner about ready to go today Continued [facility] stay due to: home environment unsafe for pt Discharge planning: rehab hospital
[2016-05-15] MEDS ORDERED: KFL500 PO (12:34)
[2016-05-15] MEDS ORDERED: CALCTAB7 PO (12:34)
[2016-05-15] MEDS ORDERED: HYDR2TAB3 PO (12:34)
[2016-05-15] MEDS ORDERED: FRRS300 PO (12:34)
--- NOTE | 2016-05-15 12:37 | Discharge Instructions ---
Discharge Instructions Date of Service May 15, 2016. Admission Reason for Admission: FALL Discharge Discharge Diagnosis / Problem: Chronic diffuse body pain/MS: Discharge Goals Goal(s): Decrease discomfort, Improve function, Increase independence, Improve disease control, Improve nutritional status, Learn about illness, Diagnostic testing, Therapeutic intervention, Prevent Disease Progression, Specific goals Activity Recommendations Activity Level: Up Ad Teresa (fall precaution) Therapies: Physical Therapy, Occupational Therapy . Additional Information Patient informed of condition: Yes Advance Directives: No DNR: No Level of Care: Acute Rehab Communicable Disease: No Prognosis: Other (guarded) Oxygen at (LPM): no Dial Catheter: No Instructions / Follow-Up Instructions / Follow-Up you have history of MS you have Ambulatory dysfunction s/p fall: you have Humerus Osteopenia, Hip/pelvic fracture with minimally distracted acute on chronic left pubic ring fractures with overlying soft tissue edema. you have chronic posttraumatic deformity and postoperative change in the left proximal femur. you have Chronic diffuse body pain/MS: you have UTI: you anemia (HGB of 7.6 --> 8.4) in the setting of rectal bleeding and stool positive occult blood. need to follow up GI for out patient colonoscope or EGD, - you need to follow up with your primary care physician in 1 week, - take medication as instructed, never overdose or any misuse, or take with alcohol, because misuse of medicine may cause organ damage or , call your primary care physician if have questions of medicaitons. - call your primary care physician OR go to local emergency room if has any fever/chill, chest pain, shortness of breathing, nausea/vomiting/abdominal pain , facial droop/slurry speech/local weakness, or if has any questions. - fall precaution - diet as instructed - you need to follow up with your subspecialist - you should understand that it is important to follow up the above instruction , and "not following the above instruction" may cause delayed or missed care of your medical conditions which may cause permanent organ damage and even . Current Hospital Diet Patient's current hospital diet: AHA Diet (Heart Healthy) Discharge Diet Recommended Diet: AHA Diet (Heart Healthy) Pending Studies Studies pending at discharge: no Physician Orders On Transfer POLST Discussion: Not Applicable Medical Emergencies . Who to Call and When: Medical Emergencies: If at any time you feel your situation is an emergency, please call 911 immediately. . Non-Emergent Contact Non-Emergency issues call your: Primary Care Provider, Ticketer . . "Provider Documentation" section prepared by Maxime Jameson. Core Measure Problem Core Measures: None [place] Drug Monitoring Program Search Results: patient reviewed within database
[2016-05-15 13:31] VITALS: BP 128/82; PULSE 78; TEMP 36.5; O2SAT 97
[2016-05-15] MEDS ORDERED: LORAZEPAM 0.5 MG TAB PO ONE (13:45)
--- NOTE | 2016-05-15 15:34 | Discharge Summary ---
Discharge Summary Date of Service May 15, 2016. Discharge Summary Admission Date: May 11, 2016 at 23:05 Discharge Date: May 15, 2016 Discharge Disposition: Rehab Principal Diagnosis: Ambulatory dysfunction s/p fall: Problems/Secondary Diagnoses: history of MS Ambulatory dysfunction s/p fall: Humerus Osteopenia, Hip/pelvic fracture with minimally distracted acute on chronic left pubic ring fractures with overlying soft tissue edema. you have chronic posttraumatic deformity and postoperative change in the left proximal femur. Chronic diffuse body paiN UTI: anemia Immunizations: Have You Had Influenza Vaccine: Unknown History of Tetanus Vaccine?: Unknown History of Pneumococcal: Unknown History of Hepatitis B Vaccine: Unknown Procedures: No Consultations: Pain management Medication Reconciliation New Medications: Calcium Carbonate-Vitamin D W/ (Caltrate 600 Plus) 1 Tab Tab 1 TAB PO BID for 30 Days, #60 TAB Cephalexin Monohydrate (Cephalexin) 500 Mg Cap 500 MG PO QID for 3 Days, #12 CAP Ferrous Sulfate (Ferrous Sulfate) 325 Mg Tab 325 MG PO BIDM for 30 Days, TAB Hydromorphone HCl (Hydromorphone HCl) 2 Mg Tab 2 MG PO Q2HWA PRN for Pain>7/10 for 1 Day, TAB Continued Medications: Diclofenac Sod (Voltaren) 100 Appln/100 Gm Gel 1 APPLN EXT QID, #30 APPLN Lidocaine (Lidocaine) 1 Patch Tdsy 1 PATCH TD QAM, #30 PATCH Lorazepam (Lorazepam) 1 Mg Tab 1 MG PO Q4 PRN for Anxiety, #30 TAB Ondansetron Hcl (Zofran) 4 Mg Tab 8 MG PO Q6 PRN for Nausea Discontinued Medications: Hydromorphone HCl (Hydromorphone HCl) 2 Mg Tab 6 MG PO Q2H PRN for Pain, #30 TAB Discharge Exam Please see today's progress note Review of Systems: Constitutional: + problem reported (Please see today's progress note) Physical Exam: General Appearance: + pertinent finding (Please see today's progress note) Hospital Course This is a 51 y/o F with a history of MS who presents after a Fall 2 days prior to the admission. She reports that she slipped on the linoleum at home when she was moving in her new apartment. She attempted to get up but fell again. She currently has pain in her left foot, pelvis and left arm. She denies pre- syncope / syncope/ LOC/ chest pain, shortness of breath. She is unable to bear weight on her left foot. She also has some bruising on her left elbow region. Ambulatory dysfunction s/p fall: With pain, is better controlled - Imaging: -- Humerus fracture- Osteopenia with no radiographic evidence of left humeral fracture. Soft tissue swelling is noted above the elbow. -- Hip/pelvic fracture- There are minimally distracted acute on chronic left pubic ring fractures with overlying soft tissue edema. No additional acute fracture seen. There is chronic posttraumatic deformity and postoperative change in the left proximal femur. -- Left forearm- No acute fracture is identified in the left forearm. Osteopenia with chronic posttraumatic and postoperative change involving the wrist as above. -- Left ankle- Soft tissue swelling and joint effusion. The skeletal structures are heterogeneously osteopenic with no definite acute fracture seen. A curvilinear density is identified just below the lateral malleolus, possibly representing an age-indeterminate avulsion injury. Correlate for point tenderness at this site. Osteopenia and degenerative change as above. -Has been on PT/OT -Has been on IV Dilaudid 2 mg q2 hrs PRN for pain control, discontinue IV after discussed with patient keep oral Dilaudid available as needed - Vitamin D of 21.6 -- begin Vitamin D supplement on 05/13 Chronic diffuse body pain/MS: - Consult pain management, appreciate recommendations--> recommend NO narcotics at discharge, IV Toradol- will avoid, pt states she allergic -- According to patient, was taking Dilaudid PO 6 mg q2 hrs at home. Records reviewed, last prescription given was Dilaudid 2 mg PO x10 days (finished 5 days ago). Multiple narcotic prescriptions noted. -- Nursing staff reports that patient was complaining that no PCP will give her pain prescriptions - Voltaren gel, and Lidoderm patch - Check ESR, CRP, ERNIE screen, and Lyme disease titers- unremarkable UTI: - U/A dirty, UCx pending - IV Rocephin (started on 05/14) was changed to Keflex, 2 out of 7 days Mild hypokalemia at 3.4 on 05/14: Replaced Anxiety: Has been on Ativan 1 mg IV q6 hrs PRN, has changed to oral as needed Alcoholic cirrhosis: - INR of 1.2- appears baseline per records - Follow PT/INR - Reviewed LFTs- stable Pancytopenia and Thrombocytopenia, today's white count is low, likely in the baseline, I feel it is chronic- stable: - Need to Follow CBC after arriving to [facility] - Iron panel- iron 14, TIBC 417, ferritin 11.4 -- begin Ferrous Sulfate 325 mg PO BID on 05/13 - Check b12/folate - Stool heme occult positive on 05/13: -- Repeat H&H q8 hrs x2- stable -- Start IV Protonix BID on 05/13--> transition to Protonix 40 mg PO daily on 05/15 -- Consult GI, appreciate recommendations -- EGD planned for 05/14 cancelled. Planning for outpatient EGD/? colonoscopy GI Prophylaxis: Maalox PRN, IV Zofran PRN, Colace and/or Milk of Mag PRN DVT prophylaxis: GUIDO and SCDs, hold chemical therapy due to thrombocytopenia Code Status: LEVEL I, FULL Dispo: - PT/OT evaluations--> - Per psychologist social, only [facility] accept him patient, she agreed to go if bed available today, has talked to nurse and outpatient case manager about ready to go today Instructions / Follow-Up you have history of MS you have Ambulatory dysfunction s/p fall: you have Humerus Osteopenia, Hip/pelvic fracture with minimally distracted acute on chronic left pubic ring fractures with overlying soft tissue edema. you have chronic posttraumatic deformity and postoperative change in the left proximal femur. you have Chronic diffuse body pain/MS: you have UTI: you anemia (HGB of 7.6 --> 8.4) in the setting of rectal bleeding and stool positive occult blood. need to follow up GI for out patient colonoscope or EGD, - you need to follow up with your primary care physician in 1 week, - take medication as instructed, never overdose or any misuse, or take with alcohol, because misuse of medicine may cause organ damage or , call your primary care physician if have questions of medicaitons. - call your primary care physician OR go to local emergency room if has any fever/chill, chest pain, shortness of breathing, nausea/vomiting/abdominal pain , facial droop/slurry speech/local weakness, or if has any questions. - fall precaution - diet as instructed - you need to follow up with your subspecialist - you should understand that it is important to follow up the above instruction , and "not following the above instruction" may cause delayed or missed care of your medical conditions which may cause permanent organ damage and even . Total Time Spent: Greater than 30 minutes This includes examination of the patient, discharge planning, medication reconciliation, and communication with other providers. Discharge Instructions Please refer to the electronic Patient Visit Report (Discharge Instructions) for additional information. Additional Copies To Salinas Damon D.O.
[2016-06-16] MEDS ORDERED: DLD/2 PO (16:56)
[2016-06-16] MEDS ORDERED: SULF800T23 PO (21:32)
[2016-08-11] MEDS ORDERED: FNTTP50 TD (16:56)
[2016-08-13] MEDS ORDERED: CIPR-255 PO (10:05)
[2016-08-23] MEDS ORDERED: THIAMINE HCL INJ 100 MG in SYRINGE 9 ML IV STA (18:39)
[2016-08-23] MEDS ORDERED: SODIUM CHLOR 0.45% + 20MEQ KCL 1,000 ML IV SCH (18:45)
[2016-08-23] MEDS ORDERED: LORAZEPAM 1 MG TAB PO PRN (18:45)
[2016-08-23] MEDS ORDERED: GABAPENTIN 600 MG TAB PO SCH (18:45)
[2016-08-25] MEDS ORDERED: FOLI1TAB7 PO (18:41)
[2016-08-25] MEDS ORDERED: HYDR2TAB3 PO (18:41)
[2016-08-25] MEDS ORDERED: MCRB100 PO (18:41)
[2016-08-25] MEDS ORDERED: CYT100 PO (18:41)
[2016-08-25] MEDS ORDERED: PRT40 PO (18:41)
[2016-08-25] MEDS ORDERED: THIA1TAB PO (18:41)
[2016-08-25] MEDS ORDERED: ERGO50002 PO (18:49)
[2016-08-25] MEDS ORDERED: CHOL2000 PO (18:49)
== END 2016-05-15 14:32 ==
LOC: ENRESERVTM → ENRESERVDT → EDBD 17:19 → C.EDD 17:20 → C.MSW 23:05
PROVIDERS: ADMIT Student in an Organized Health Care Education/Training Program; ATTEND Hospitalist
DX: S32.89XA Fracture of other parts of pelvis, initial encounter for closed fracture (principal); S82.62XA Displaced fracture of lateral malleolus of left fibula, initial encounter for closed fracture; S50.02XA Contusion of left elbow, initial encounter; R26.9 Unspecified abnormalities of gait and mobility; R19.5 Other fecal abnormalities; D61.818 Other pancytopenia; N39.0 Urinary tract infection, site not specified; E87.6 Hypokalemia; M85.852 Other specified disorders of bone density and structure, left thigh; M85.822 Other specified disorders of bone density and structure, left upper arm; M85.832 Other specified disorders of bone density and structure, left forearm; M85.872 Other specified disorders of bone density and structure, left ankle and foot; G35 Multiple sclerosis; F41.9 Anxiety disorder, unspecified; G89.29 Other chronic pain; M25.551 Pain in right hip; M25.552 Pain in left hip; M54.9 Dorsalgia, unspecified; K70.30 Alcoholic cirrhosis of liver without ascites; M79.7 Fibromyalgia; F10.21 Alcohol dependence, in remission; Z51.81 Encounter for therapeutic drug level monitoring; Z79.899 Other long term (current) drug therapy; Z79.1 Long term (current) use of non-steroidal anti-inflammatories (NSAID); Z79.891 Long term (current) use of opiate analgesic; Z96.89 Presence of other specified functional implants; Z87.898 Personal history of other specified conditions; Z82.3 Family history of stroke; Z82.49 Family history of ischemic heart disease and other diseases of the circulatory system; W18.09XA Striking against other object with subsequent fall, initial encounter; Y93.E6 Activity, residential relocation; Y92.039 Unspecified place in apartment as the place of occurrence of the external cause; Y99.8 Other external cause status

== ENCOUNTER 2016-06-22 11:13 | Inpatient (IN) | payer OTHER ==
[~2016-06-22] VITALS: Ht 154.9 cm; Wt 63.0 kg
[~2016-06-22 11:13] MED LIST changes: +CALCTAB7 PO; +DLD/2 PO; +FRRS300 PO; -HYDR2TAB3 PO; -JUICE SUPPLEMENT PO; -LDDP5 TD; +SULF800T23 PO
--- NOTE | 2016-06-22 12:27 | EMERGENCY ROOM VISIT NOTE ---
History Report prepared by Elana: Denis Spears Under the Supervision of: Dr. Joe Tapia M.D. First contact with patient: 12:19 Chief Complaint: FALL Stated Complaint: LOWER BACK PAIN History of Present Illness The patient is a 51 year old female who presents to the Emergency Room with complaints of constant back pain beginning last night. The nursing staff states that upon arrival, the patient was incontinent of her stool and urine. The nursing staff notes that the patient fell and her back hurts. Nursing staff notes that the patient consumed alcohol last evening. The history is limited secondary to the patient's altered mental status. Source of History: nursing staff History Limited By: AMS Onset: last night Position: back Timing: constant Review of Systems The ROS and HPI are limited secondary to the patient's altered mental status. 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 (19) Rhabdomyolysis (20) UTI (urinary tract infection) Surgical Problems: (1) H/O gastric bypass (2) H/O gastrostomy (3) H/O total hip arthroplasty (4) History of cholecystectomy (5) History of total hysterectomy Family History Cancer FHx: aneurysm FHx: stroke Social History Smoking Status: Never Smoker Alcohol Use: heavy Drug Use: none Marital Status: Housing Status: lives alone Occupation Status: unemployed Current/Historical Medications Scheduled Calcium Carbonate-Vitamin D W/ (Caltrate 600 Plus), 1 TAB PO BID Diclofenac Sod (Voltaren), 1 APPLN EXT QID Fentanyl (Duragesic), 50 MCG TD [id number] Ferrous Sulfate (Ferrous Sulfate), 325 MG PO BIDM Sulfa/Trimethoprim (Bactrim Ds 800MG/160MG), 1 TAB PO BID Scheduled PRN Hydromorphone HCl (Hydromorphone HCl), 2 MG PO QID PRN for Pain Lorazepam (Lorazepam), 1 MG PO Q4 PRN for Anxiety Ondansetron Hcl (Zofran), 8 MG PO Q6 PRN for Nausea Allergies Coded Allergies: Clarithromycin (Verified Allergy, Intermediate, HIVES, 06/22/16) Aspirin (Verified Allergy, Mild, 06/22/16) Tramadol (Verified Allergy, Mild, 06/22/16) Oxaprozin (Verified Allergy, Unknown, 06/22/16) Physical Exam Vital Signs Date Time Temp Pulse Resp B/P Pulse Ox O2 Delivery O2 Flow Rate FiO2 06/22/16 15:57 69 22 156/97 97 Room Air 06/22/16 14:49 68 24 152/92 100 Room Air 06/22/16 14:19 63 22 145/90 99 Room Air 06/22/16 13:42 99 Room Air 06/22/16 13:32 60 24 141/89 99 Room Air 06/22/16 12:39 66 24 143/93 98 Room Air 06/22/16 11:44 63 06/22/16 11:37 36.7 66 18 142/93 100 Room Air 06/22/16 11:36 99 Room Air Physical Exam GENERAL: Patient is a cachectic-appearing well-nourished female; nods her head to questioning HEAD: Normocephalic atraumatic EYES: Ocular movements intact pupils equal and react to light OROPHARYNX mucous membranes are moist no exudates present no erythema or edema present NECK: Supple no nuchal rigidity CHEST: Good equal expansion LUNGS: Clear and equal to auscultation CARDIAC: Normal S1 and S2 ABDOMEN: Soft nontender no guarding BACK: No CVA tenderness EXTREMITIES: No pain upon palpation normal muscle strength in all groups no clubbing cyanosis or edema NEURO: Patient is following commands is answering questions appropriately. Alert and oriented x3 Cranial Nerves 2-12 grossly intact Medical Decision & Procedures ER Provider Diagnostic Interpretation: Radiology results as stated below per my review and radiologist interpretation: CHEST ONE VIEW PORTABLE CLINICAL HISTORY: Pt c/o AMS dyspnea COMPARISON STUDY: 06/16/2016 FINDINGS: The bones soft tissues and hemidiaphragms are normal. The cardiomediastinal silhouette is normal. The lungs are clear. The pulmonary vasculature is normal. IMPRESSION: Negative chest. Electronically signed by: Mj Smith M.D. 06/22/2016 1:28 PM Dictated Date/Time: 06/22/2016 1:[address] NON[address]AST CT DOSE: 614.27 mGy.cm HISTORY: Altered mental status. TECHNIQUE: Multiaxial CT images of the head were performed without the use of intravenous contrast. Automated exposure control was utilized for this study. Comparison: Head CT 11/28/2015. Findings: Partial opacification of the right frontal sinus and right sphenoid sinus which appear to be secondary to retention cysts. The mastoid air cells are clear. The calvarium and skull base are intact. The ventricles are within normal limits. There is no mass, hematoma, midline shift, or acute infarct. Mild bifrontal atrophy, unchanged. Impression: No acute intracranial abnormality. Electronically signed by: Brennen King M.D. 06/22/2016 2:17 PM Dictated Date/Time: 06/22/2016 2:12 PM Laboratory Results 06/22/16 12:15 Red Blood Count 5.66, Mean Corpuscular Volume 68.6, Mean Corpuscular Hemoglobin 22.1, Mean Corpuscular Hemoglobin Concent 32.2, Neutrophils (%) (Auto) 87.5, Lymphocytes (%) (Auto) 6.8, Monocytes (%) (Auto) 5.1, Eosinophils (%) (Auto) 0.0 , Basophils (%) (Auto) 0.0, Neutrophils # (Auto) 17.57, Lymphocytes # (Auto) 1.37, Monocytes # (Auto) 1.03, Eosinophils # (Auto) 0.00, Basophils # (Auto) 0.01 06/22/16 12:15 Test 06/22/16 12:15 06/22/16 12:36 06/22/16 13:48 06/22/16 15:26 White Blood Count 20.11 K/uL (4.8-10.8) Red Blood Count 5.66 M/uL (4.2-5.4) Hemoglobin 12.5 g/dL (12.0-16.0) Hematocrit 38.8 % (37-47) Mean Corpuscular Volume 68.6 fL (80-100) Mean Corpuscular Hemoglobin 22.1 pg (25-34) Mean Corpuscular Hemoglobin Concent 32.2 g/dl (32-36) Platelet Count 218 K/uL (130-400) Neutrophils (%) (Auto) 87.5 % Lymphocytes (%) (Auto) 6.8 % Monocytes (%) (Auto) 5.1 % Eosinophils (%) (Auto) 0.0 % Basophils (%) (Auto) 0.0 % Neutrophils # (Auto) 17.57 K/uL (1.4-6.5) Lymphocytes # (Auto) 1.37 K/uL (1.2-3.4) Monocytes # (Auto) 1.03 K/uL (0.11-0.59) Eosinophils # (Auto) 0.00 K/uL (0-0.5) Basophils # (Auto) 0.01 K/uL (0-0.2) RDW Standard Deviation 59.3 fL (36.4-46.3) RDW Coefficient of Variation 25.1 % (11.5-14.5) Immature Granulocyte % (Auto) 0.6 % Immature Granulocyte # (Auto) 0.13 K/uL (0.00-0.02) Hypochromasia PRESENT Poikilocytosis PRESENT Anisocytosis PRESENT Microcytosis PRESENT Anion Gap 16.0 mmol/L (3-11) Est Creatinine Clear Calc Drug Dose 75.2 ml/min Estimated GFR () 117.7 Estimated GFR (Non- 101.6 BUN/Creatinine Ratio 29.0 (10-20) Calcium Level 9.4 mg/dl (8.5-10.1) Phosphorus Level 2.0 mg/dl (2.5-4.9) Magnesium Level 2.3 mg/dl (1.8-2.4) Total Bilirubin 2.5 mg/dl (0.2-1) Direct Bilirubin 1.0 mg/dl (0-0.2) Aspartate Amino Transf (AST/SGOT) 113 U/L (15-37) Alanine Aminotransferase (ALT/SGPT) 52 U/L (12-78) Alkaline Phosphatase 201 U/L (45-117) Total Protein 8.2 gm/dl (6.4-8.2) Albumin 3.7 gm/dl (3.4-5.0) Globulin 4.5 gm/dl (2.5-4.0) Albumin/Globulin Ratio 0.8 (0.9-2) Thyroid Stimulating Hormone (TSH) 1.240 uIu/ml (0.300-4.500) Ethyl Alcohol mg/dL < 3.0 mg/dl (0-3) Bedside Glucose 128 mg/dl (70-90) Urine Color DK YELLOW Urine Appearance CLEAR (CLEAR) Urine pH 6.0 (4.5-7.5) Urine Specific Coleman 1.022 (1.000-1.030) Urine Protein 2+ (NEG) Urine Glucose (UA) NEG (NEG) Urine Ketones 4+ (NEG) Urine Occult Blood 2+ (NEG) Urine Nitrite POS (NEG) Urine Bilirubin NEG (NEG) Urine Urobilinogen NEG (NEG) Urine Leukocyte Esterase TRACE (NEG) Urine WBC (Auto) 10-30 /hpf (0-5) Urine RBC (Auto) 5-10 /hpf (0-4) Urine Hyaline Casts (Auto) 5-10 /lpf (0-5) Urine Epithelial Cells (Auto) 0-5 /lpf (0-5) Urine Bacteria (Auto) 4+ (NEG) Urine Opiates Screen POS (NEG) Urine Methadone, Qualitative NEG (NEG) Urine Barbiturates NEG (NEG) Urine Phencyclidine (PCP) Level NEG (NEG) Ur Amphetamine/Methamphetamine NEG (NEG) MDMA (Ecstasy) Screen NEG (NEG) Urine Benzodiazepines Screen NEG (NEG) Urine Cocaine Metabolite NEG (NEG) Urine Marijuana (THC) POS (NEG) Creatine Kinase MB Ratio (0-3.0) Labs reviewed by ED physician. Medications Administered Medications (Trade) Dose Ordered Sig/Flori Route Start Time Stop Time Status Last Admin Dose Admin Potassium Chloride (Charlotte Ciel Elix) 40 meq NOW STAT PO 06/22/16 13:15 06/22/16 13:17 DC 06/22/16 13:39 40 MEQ Potassium Chloride 10 meq 10 meq NOW STAT IV 06/22/16 13:15 06/22/16 13:17 DC 06/22/16 13:39 10 MEQ Potassium Chloride 10 meq/ Prmx 100 ml @ 100 mls/hr NOW STAT IV 06/22/16 13:15 06/22/16 14:14 DC 06/22/16 14:44 100 MLS/HR Sodium Chloride (Nss 1000ml) 1,000 ml @ 999 mls/hr Q1H1M STAT IV 06/22/16 13:15 06/22/16 14:15 DC 06/22/16 13:31 999 MLS/HR Ondansetron HCl 4 mg 4 mg NOW STAT IV 06/22/16 13:15 06/22/16 13:17 DC 06/22/16 13:39 4 MG Multivitamins/ Thiamine HCl/ Folic Acid/Sodium Chloride (Mvi Infusion Inj/Vitamin B-1 Inj/Folvite Inj/ Nss 1000ml) 1,011.2 ml @ 500 mls/ hr Q2H2M ONCE IV 06/22/16 13:30 06/22/16 15:31 DC 06/22/16 14:44 500 MLS/HR ECG Indication: weakness Rate (beats per minute): 64 Rhythm: normal sinus Findings: no acute ischemic change, prolonged QT, no ectopy, other (old septal infarct) ED Course 1315: Ordered Zofran Inj 4 mg IV, Sodium Chloride 1000 ml @ 999 mls/hr IV, Potassium Chloride 10 meq/Prmx 100 ml @ 100 mls/hr IV, Potassium Chloride 10 meq IV, Potassium Chloride 40 meq PO. 1319: Past medical records reviewed. The patient was evaluated in room A3. A complete history and physical examination was performed. 1330: Ordered Multivitamins 10 ml/Thiamine HCl 100 mg/Folic Acid 1 mg/Sodium Chloride 70129.2 ml @ 500 mls/hr IV. 1340: I discussed the patient's case with YAMINI Angel. He is going to evaluate the patient for further treatment. Medical Decision Differential diagnosis: Etiologies such as metabolic, infection, hypo/hyperglycemia, electrolyte abnormalities, cardiac sources, intracerebral event, toxicologic, neurologic, as well as others were entertained. This is a 51-year-old female who presents emergency department complaining of being found down at her house. The patient had a large amount of feces found in her vagina and she was covered in feces. She was decontaminated by nursing staff here in the emergency department. She has a large elevation in her white blood count therefore was pancultured up and started on antibiotics. She was started on a banana bag. Her creatinine kinase is also elevated consistent with rhabdomyolysis. The patient also has an elevation in her troponin. Based on the multiple findings I did discuss the case with the hospitalist service who agreed to admit the patient. Patient was in agreement with the treatment plan. The patient was sent for CAT scan of the head which did not show any acute process and a chest x-ray is also normal. Consults Time Called: 1314 Consulting Physician: YAMINI Angel Returned Call: 1340 I discussed the patient's case with YAMINI Angel. He is going to evaluate the patient for further treatment. Impression Primary Impression: TYRONE (acute kidney injury) Additional Impression: Rhabdomyolysis Critical Care I have personally spent greater than 30 minutes of critical care time in the direct management of this patient. This includes bedside care, interpretation of diagnostic studies, and testing, discussion with consultants, patient, and family members, and other required patient management activities. This 30 minutes is in excess of all separately billable procedures. Scribe Attestation The scribe's documentation has been prepared under my direction and personally reviewed by me in its entirety. I confirm that the note above accurately reflects all work, treatment, procedures, and medical decision making performed by me. Departure Information Dispostion Being Evaluated By Hospitalist Referrals Kevin Vera D.O. (PCP) Problem Qualifiers Additional Impression: Rhabdomyolysis Rhabdomyolysis type: non-traumatic Qualified Codes: M62.82 - Rhabdomyolysis
[2016-06-22 12:32] LABS: HEMATOCRIT 38.8 % (37-47); MEAN CELL VOLUME 68.6 fL (80-100); MEAN CORPUSCULAR HEMOGLOBIN 22.1 pg (25-34); MEAN CORPUSCULAR HGB CONC 32.2 g/dl (32-36); PLATELET COUNT 218 K/uL (130-400); RED BLOOD COUNT 5.66 M/uL (4.2-5.4); WHITE BLOOD COUNT 20.11 K/uL (4.8-10.8)
[2016-06-22 12:48] LABS: CALCIUM 9.4 mg/dl (8.5-10.1); POTASSIUM 2.6 mmol/L (3.5-5.1)
[2016-06-22 12:50] LABS: CREATININE 0.66 mg/dl (0.60-1.20)
[2016-06-22 12:59] LABS: ALB/GLOB RATIO 0.8 (0.9-2)
[2016-06-22 13:02] LABS: ANISOCYTOSIS PRESENT; BASO ABS # 0.01 K/uL (0-0.2); COMPLETE YES; HYPOCHROMIA PRESENT; IG% 0.6 %; LYMPH % 6.8 %; LYMPH ABS # 1.37 K/uL (1.2-3.4); MICROCYTOSIS PRESENT; MONO % 5.1 %; NEUT % 87.5 %; POIKILOCYTOSIS PRESENT
[2016-06-22] MEDS ORDERED: POTASSIUM CHLORIDE 10 MEQ / 100ML WTR IV STA (13:15)
[2016-06-22] MEDS ORDERED: POTASSIUM CHLR 10 MEQ / WTR 10 MEQ in PREMIXED WATER 100 ML IV STA (13:15)
[2016-06-22] MEDS ORDERED: SODIUM CHLORIDE 0.9% 1000ML 1,000 ML IV STA (13:15)
[2016-06-22] MEDS ORDERED: POTASSIUM CHLORIDE 20 MEQ/15 ML UDC PO STA (13:15)
[2016-06-22] MEDS ORDERED: ONDANSETRON INJ 2 MG/ML 2 ML VIAL IV STA (13:15)
[2016-06-22 13:16] LABS: THYROID STIMULATING HORMONE 1.24 uIu/ml (0.300-4.500)
[2016-06-22] MEDS ORDERED: MULTI-VITAMIN INFUSION INJ 10 ML, THIAMINE HCL INJ 100 MG, FoLIC ACID INJ 1 MG in SODIU... IV ONE (13:30)
--- NOTE | 2016-06-22 13:30 | DIAGNOSTIC IMAGING REPORT ---
CHEST ONE VIEW PORTABLE CLINICAL HISTORY: Pt c/o AMS dyspnea COMPARISON STUDY: 06/16/2016 FINDINGS: The bones soft tissues and hemidiaphragms are normal. The cardiomediastinal silhouette is normal. The lungs are clear. The pulmonary vasculature is normal. IMPRESSION: Negative chest. Electronically signed by: Mj Smith M.D. 06/22/2016 1:28 PM Dictated Date/Time: 06/22/2016 1:28 PM
[2016-06-22 13:42] VITALS: O2SAT 99; Ht 154.9 cm; Wt 63.0 kg
[2016-06-22] MEDS ORDERED: MAGNESIUM HYDROXIDE SUSP 30 ML UDC PO PRN (14:00)
[2016-06-22] MEDS ORDERED: POLYETHYLENE (MIRALAX) 17 GM PACK PO PRN (14:00)
[2016-06-22] MEDS ORDERED: ALUMINUM/MAGNESIUM/SIMETH (MAALOX MAX) 30 ML UDC PO PRN (14:00)
[2016-06-22] MEDS ORDERED: HYDROmorphone INJ 1 MG/ML SYR IV PRN (14:00)
[2016-06-22] MEDS ORDERED: NITROGLYCERIN 0.4 MG SL PER TAB CHARGE SL PRN (14:00)
[2016-06-22 14:15] LABS: URINE APPEARANCE CLEAR (CLEAR); URINE COLOR DK YELLOW; URINE EPITHELIAL CELL AUTO 0-5 /lpf (0-5); URINE NITRITE POS (NEG); URINE SPECIFIC GRAVITY 1.022 (1.000-1.030); UROBILINOGEN NEG (NEG)
--- NOTE | 2016-06-22 14:19 | DIAGNOSTIC IMAGING REPORT ---
HEAD CT NONCONTRAST CT DOSE: 614.27 mGy.cm HISTORY: Altered mental status. TECHNIQUE: Multiaxial CT images of the head were performed without the use of intravenous contrast. Automated exposure control was utilized for this study. Comparison: Head CT 11/28/2015. Findings: Partial opacification of the right frontal sinus and right sphenoid sinus which appear to be secondary to retention cysts. The mastoid air cells are clear. The calvarium and skull base are intact. The ventricles are within normal limits. There is no mass, hematoma, midline shift, or acute infarct. Mild bifrontal atrophy, unchanged. Impression: No acute intracranial abnormality. Electronically signed by: Brennen King M.D. 06/22/2016 2:17 PM Dictated Date/Time: 06/22/2016 2:12 PM
[2016-06-22] MEDS ORDERED: LORAZEPAM 1 MG TAB PO PRN (14:30)
[2016-06-22] MEDS ORDERED: GABAPENTIN 600 MG TAB PO SCH (14:30)
--- NOTE | 2016-06-22 14:38 | History and Physical ---
History & Physical Date & Time of Service: June 22, 2016 at 14:09 Chief Complaint: Lower Back Pain Primary Care Physician: Kevin Vera D.O. History of Present Illness Source: patient, clinic records, hospital records Patient is an 51 y/o female, with PMHx of MS, chronic pain, anxiety, and alcoholic cirrhosis, who presented to the ED via EMS due to fall w/ complaints of lower back pain. History is limited secondary to patient's status. According to the patient, she fell this AM while going to the bathroom. She fell directly on her face. Patient admits to diffuse body pain, with no specific locations. According to the ED physician, patient was brought in to the ED because of a fall w/ complaints of back pain. EMS found patient with many beer cans surrounding her. She was reported to have fallen last evening. +pain with urination. Limited ROS due to patient's status; denies CP, SOB, abdominal pain. Patient was admitted April 2016 because of a fall. At that time, patient was seen by pain management due to diffuse body pain. Pain management recommended continuing pump and avoiding narcotics at discharge due to patient's history. Patient was discharged to [facility]. When asking patient when she left [facility], she states "I don't know." Patient has a history of alcohol abuse. When seen in April 2016 patient stated she had not used alcohol in over month. Today when asking about alcohol use, patient admits to recent use. She states that she "doesn't know" when she started to use alcohol again. She states she is only taking her medications as prescribed. Past Medical/Surgical History Medical Problems: (1) Anxiety Status: Chronic (2) Chronic back pain Status: Chronic (3) Endometriosis Status: Chronic (4) Fibromyalgia Status: Chronic (5) GERD (gastroesophageal reflux disease) Status: Chronic (6) Multiple Sclerosis Status: Chronic Surgical Problems: (1) H/O gastric bypass Permanent Comment: 2000 Status: Resolved (2) H/O gastrostomy Permanent Comment: 10/26/14 Status: Resolved (3) H/O total hip arthroplasty Permanent Comment: L ; 2012 Status: Resolved (4) History of cholecystectomy Permanent Comment: 10/26/14 Status: Resolved (5) History of total hysterectomy Permanent Comment: 1994 Status: Resolved Family History Cancer FHx: aneurysm FHx: stroke Social History Smoking Status: Former Smoker Drug Use: none Marital Status: Housing status: [facility] Occupational Status: unemployed Immunizations History of Influenza Vaccine: Unknown History of Tetanus Vaccine?: Unknown History of Pneumococcal: Unknown History of Hepatitis B Vaccine: Unknown Multi-Drug Resistant Organisms History of MDRO: No Allergies Coded Allergies: Clarithromycin (Verified Allergy, Intermediate, HIVES, 06/22/16) Aspirin (Verified Allergy, Mild, 06/22/16) Tramadol (Verified Allergy, Mild, 06/22/16) Oxaprozin (Verified Allergy, Unknown, 06/22/16) Home Medications Scheduled Calcium Carbonate-Vitamin D W/ (Caltrate 600 Plus), 1 TAB PO BID Diclofenac Sod (Voltaren), 1 APPLN EXT QID Ferrous Sulfate (Ferrous Sulfate), 325 MG PO BIDM Sulfa/Trimethoprim (Bactrim Ds 800MG/160MG), 1 TAB PO BID Scheduled PRN Hydromorphone HCl (Hydromorphone HCl), 2 MG PO QID PRN for Pain Lorazepam (Lorazepam), 1 MG PO Q4 PRN for Anxiety Ondansetron Hcl (Zofran), 8 MG PO Q6 PRN for Nausea Physical Exam Vital Signs Date Time Temp Pulse Resp B/P Pulse Ox O2 Delivery O2 Flow Rate FiO2 06/22/16 13:42 99 Room Air 06/22/16 13:32 60 24 141/89 99 Room Air 06/22/16 12:39 66 24 143/93 98 Room Air 06/22/16 11:44 63 06/22/16 11:37 36.7 66 18 142/93 100 Room Air 06/22/16 11:36 99 Room Air General Appearance: no apparent distress Head: normocephalic, atraumatic Eyes: normal inspection, + pertinent finding (dilated pupils ) ENT: hearing grossly normal Neck: supple Respiratory/Chest: lungs clear, no respiratory distress, no accessory muscle use Cardiovascular: regular rate, rhythm Abdomen/GI: normal bowel sounds, non tender, soft Extremities/Musculoskelatal: no calf tenderness, no pedal edema Neurologic/Psych: alert, + pertinent finding (flat affect ) Skin: normal color, warm/dry, no rash Diagnostics Laboratory Results Results Past 24 Hours Test 06/22/16 12:15 06/22/16 12:36 06/22/16 13:17 06/22/16 13:48 Range/Units White Blood Count 20.11 4.8-10.8 K/uL Red Blood Count 5.66 4.2-5.4 M/uL Hemoglobin 12.5 12.0-16.0 g/dL Hematocrit 38.8 37-47 % Mean Corpuscular Volume 68.6 80-100 fL Mean Corpuscular Hemoglobin 22.1 25-34 pg Mean Corpuscular Hemoglobin Concent 32.2 32-36 g/dl Platelet Count 218 130-400 K/uL Neutrophils (%) (Auto) 87.5 % Lymphocytes (%) (Auto) 6.8 % Monocytes (%) (Auto) 5.1 % Eosinophils (%) (Auto) 0.0 % Basophils (%) (Auto) 0.0 % Neutrophils # (Auto) 17.57 1.4-6.5 K/uL Lymphocytes # (Auto) 1.37 1.2-3.4 K/uL Monocytes # (Auto) 1.03 0.11-0.59 K/uL Eosinophils # (Auto) 0.00 0-0.5 K/uL Basophils # (Auto) 0.01 0-0.2 K/uL RDW Standard Deviation 59.3 36.4-46.3 fL RDW Coefficient of Variation 25.1 11.5-14.5 % Immature Granulocyte % (Auto) 0.6 % Immature Granulocyte # (Auto) 0.13 0.00-0.02 K/uL Hypochromasia PRESENT Poikilocytosis PRESENT Anisocytosis PRESENT Microcytosis PRESENT Sodium Level 142 136-145 mmol/L Potassium Level 2.6 3.5-5.1 mmol/L Chloride Level 107 98-107 mmol/L Carbon Dioxide Level 19 21-32 mmol/L Anion Gap 16.0 3-11 mmol/L Blood Urea Nitrogen 19 7-18 mg/dl Creatinine 0.66 0.60-1.20 mg/dl Est Creatinine Clear Calc Drug Dose 75.2 ml/min Estimated GFR () 117.7 Estimated GFR (Non- 101.6 BUN/Creatinine Ratio 29.0 10-20 Random Glucose 131 70-99 mg/dl Calcium Level 9.4 8.5-10.1 mg/dl Total Bilirubin 2.5 0.2-1 mg/dl Direct Bilirubin 1.0 0-0.2 mg/dl Aspartate Amino Transf (AST/SGOT) 113 15-37 U/L Alanine Aminotransferase (ALT/SGPT) 52 12-78 U/L Alkaline Phosphatase 201 45-117 U/L Total Creatine Kinase 1905 26-192 U/L Total Protein 8.2 6.4-8.2 gm/dl Albumin 3.7 3.4-5.0 gm/dl Globulin 4.5 2.5-4.0 gm/dl Albumin/Globulin Ratio 0.8 0.9-2 Thyroid Stimulating Hormone (TSH) 1.240 0.300-4.500 uIu/ml Ethyl Alcohol mg/dL < 3.0 0-3 mg/dl Bedside Glucose 128 70-90 mg/dl Creatine Kinase MB Ratio 0-3.0 Diagnostic Radiology CHEST ONE VIEW PORTABLE CLINICAL HISTORY: Pt c/o AMS dyspnea COMPARISON STUDY: 06/16/2016 FINDINGS: The bones soft tissues and hemidiaphragms are normal. The cardiomediastinal silhouette is normal. The lungs are clear. The pulmonary vasculature is normal. IMPRESSION: Negative chest. Electronically signed by: Mj Smith M.D. 06/22/2016 1:28 PM Dictated Date/Time: 06/22/2016 1:28 PM The status of this report is Signed. Draft = Not yet reviewed or approved by Radiologist. Signed = Reviewed and approved by Radiologist. EKG LINDSAY OROZCO ID:[id number] 22-JUN-2016 11:32:51 [facility] Normal sinus rhythm Left axis deviation Septal infarct (cited on or before 12-NOV-2015) Prolonged QT Abnormal ECG When compared with ECG of 16-JUN-2016 17:29, Significant changes have occurred 25mm/s 10mm/mV 150Hz 8.0 SP2 12SL 241 MILEY: 0 Referred by: Unconfirmed Vent. 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 Fall: - Admit to tele for cardiac monitoring - Cardiac enzymes pending - Abnormal EKG- repeat tomorrow AM and PRN w/ CP - Toxicology screen pending - PT/OT evaluations Hypokalemia w/ K 2.6 at admission: - Repleted in ED w/ KCL 40 mEq PO and 10 mEq KCL x2 bags - Continue repletion w/ IVF + 20 mEq KCL Rhabdomyolysis: - Treat w/ IVF @ 125 ml/hr - Follow CRP- initial CRP 1905 Leukocytosis w/ WBC of 20.11 at admission: - Follow CBC - CXR- negative for acute process - UA pending - No s/s of infections at this time- continue to monitor need for antibiotic treatment Feces noted in vagina in ED: Consult SWING TENDER, appreciate recommendations Chronic diffuse body pain/MS: - Intrathecal pump - Hold pain management at this time until patient's mental status improves Anxiety: Ativan Alcohol abuse: - IV Banana bag x1 in ED - Alcohol protocol Alcoholic cirrhosis- baseline INR of 1.2: - Follow PT/INR - Elevated LFTs- follow CMP GI Prophylaxis: Maalox PRN, IV Zofran PRN, Colace and/or Milk of Mag PRN DVT prophylaxis: GUIDO and SCDs, hold chemical therapy pending PT/INR Code Status: LEVEL I, FULL Dispo: - From home, lives alone - PT/OT evaluations pending - patient financial services manager consulted Level of Care Telemetry Advanced Directives Existing Living Will: No Existing Power of Pottery Decoration Designer: No Resuscitation Status FULL RESUSCITATION VTE Prophylaxis VTE Risk Assessment Done? Y/N: Yes Risk Level: Moderate Given or contraindicated: T.E.D. Stockings, SCD's
[2016-06-22 14:41] LABS: MANUAL MICROSCOPIC REQUIRED? NO; REVIEW REQ? YES; URINE BILIRUBIN NEG (NEG)
[2016-06-22 14:42] LABS: BENZODIAZEPINE, URINE NEG (NEG); COCAINE,URINE NEG (NEG); PHENCYCLIDINE, URINE NEG (NEG)
[2016-06-22 15:09] LABS: MAGNESIUM 2.3 mg/dl (1.8-2.4)
[2016-06-22 16:15] VITALS: BP 152/97; PULSE 65; TEMP 36.9; O2SAT 100
[2016-06-22] MEDS: DICLOFENAC SOD 1% GEL 100 GM TUBE EXT SCH ×2 (17:00→21:46)
[2016-06-22] MEDS: FERROUS SULFATE 325 MG TAB PO SCH (17:06)
[2016-06-22] MEDS: NSS + 20MEQ KCL 1000ML 1,000 ML IV SCH (17:09)
[2016-06-22] MEDS: THIAMINE HCL 100 MG TAB PO SCH (17:09)
[2016-06-22] MEDS ORDERED: GABAPENTIN 1200MG LOADING DOSE PO SCH (17:15)
[2016-06-22 17:24] LABS: INR 1.3 (0.9-1.1); PARTIAL THROMBOPLASTIN RATIO 1.1; PROTHROMBIN TIME (PATIENT) 13.5 SECONDS (9.0-12.0)
[2016-06-22] MEDS: HEPARIN 25,000 UNIT/500ML D5W 500 ML IV PRN (17:28)
[2016-06-22] MEDS ORDERED: HEPARIN IV BOLUS 4,000 UNIT in SYRINGE 0 ML IV ONE (17:30)
[2016-06-22] MEDS: CEFTRIAXONE SOD INJ 1 GM in DEXTROSE 5% ADD-VANTAGE 50ML 50 ML IV SCH ×2 (18:00→20:00)
--- NOTE | 2016-06-22 19:08 | Medical Consult ---
Consultation Date of Consultation: June 22, 2016. Attending Physician: Maxime Jameson MD, PhD Reason for Consultation: Possible stool in vagina History of Present Illness 51yoF with history of MS, anxiety, alcoholic cirrhosis, total hysterectomy (1994 ) was admitted to ICU with low back pain. FANCY SEWER consultation requested by Dr Jameson for finding of stool in vagina by RN in ER. At the time of my examination, patient is awake and alert and appropriately responding to questions by shaking her head "yes" or "no." She has not been verbal during my examination. Patient's son is at bedside, but he does not know much information about her medical history. Per records, patient was found down at home after a fall on her way to the bathroom. Upon arrival in the ER, she was covered in feces and this was also noted in the vagina - examiners in the ER were not sure where the stool was coming from. When questioned by myself, patient shakes her head "no" when questioned if she has ever been incontinent of stool in the past or if she has ever had stool leakage out of her vagina. Also shakes her head "no" when questioned if she needs to use a diaper or incontinence products at home. Additional history is limited to what can be gleaned from the chart. Past Medical/Surgical History Medical Problems: (1) Alcohol dependence Status: Acute (2) Alcohol intoxication Status: Acute (3) Ankle fracture, lateral malleolus, closed Status: Acute (4) Chronic abdominal pain Status: Acute (5) Chronic anemia Status: Acute (6) Failure of outpatient treatment Status: Acute (7) Fever Status: Acute (8) GI bleed Status: Acute (9) Head injury Status: Acute (10) Hyperbilirubinemia Status: Acute (11) Hypokalemia Status: Acute (12) Hypomagnesemia Status: Acute (13) Jaundice Status: Acute (14) Left elbow pain Status: Acute (15) Pelvic ring fracture Status: Acute (16) Urinary tract infection Status: Acute (17) Vomiting Status: Acute Family History Cancer FHx: aneurysm FHx: stroke Social History Smoking Status: Former Smoker Drug Use: none Marital Status: Housing Status: lives alone Occupation Status: unemployed Allergies Coded Allergies: Clarithromycin (Verified Allergy, Intermediate, HIVES, 06/22/16) Aspirin (Verified Allergy, Mild, 06/22/16) Tramadol (Verified Allergy, Mild, 06/22/16) Oxaprozin (Verified Allergy, Unknown, 06/22/16) Current Inpatient Medications Current Inpatient Medications Medications (Trade) Dose Ordered Sig/Flori Route Start Time Stop Time Status Last Admin Dose Admin Potassium Chloride/Sodium Chloride (Nss + 20meq KCl 1000ml) 1,000 ml @ 125 mls/hr Q8H IV 06/22/16 17:00 07/22/16 16:59 06/22/16 17:09 125 MLS/HR Al Hydrox/Mg Hydrox/Simethicone (Maalox Max Susp) 15 ml Q4H PRN PO 06/22/16 14:00 07/22/16 13:59 Magnesium Hydroxide (Milk Of Magnesia Susp) 30 ml Q12H PRN PO 06/22/16 14:00 07/22/16 13:59 Ondansetron HCl (Zofran Inj) 4 mg Q6H PRN IV 06/22/16 14:00 07/22/16 13:59 Nitroglycerin (Nitrostat Tab) 0.4 mg UD PRN SL 06/22/16 14:00 07/22/16 13:59 Polyethylene (Miralax Powder Packet) 17 gm DAILY PRN PO 06/22/16 14:00 07/22/16 13:59 Calcium/Vitamin D (Caltrate Plus Tab) 1 tab BID PO 06/22/16 21:00 07/22/16 20:59 Diclofenac Sodium (Voltaren 1% Top Gel) 1 appln QID EXT 06/22/16 17:00 07/22/16 16:59 Ferrous Sulfate (Feosol Tab) 325 mg BIDM PO 06/22/16 16:45 07/22/16 17:59 06/22/16 17:06 325 MG Lorazepam (Ativan Tab) 1 mg Q4 PRN PO 06/22/16 14:00 07/22/16 13:59 Thiamine HCl (Vitamin B-1 Tab) 100 mg DAILY PO 06/22/16 17:15 07/22/16 17:14 06/22/16 17:09 100 MG Lorazepam (Ativan Tab) 1 mg ONE PRN PO 06/22/16 14:30 Lorazepam (Ativan Inj) PRN Dosing -Active Protocol Q1H PRN IV 06/22/16 14:30 07/22/16 14:29 Metoprolol Tartrate 25 mg 25 mg Q12 PO 06/22/16 21:00 07/22/16 20:59 Ceftriaxone Sodium/Dextrose (Rocephin Inj/ Dextrose Add-[place] 50ML) 50 ml @ 100 mls/hr DAILY@1800 IV 06/22/16 18:00 07/02/16 17:59 Gabapentin (Neurontin Tab) 600 mg Q6H PO 06/22/16 23:00 06/23/16 05:01 Gabapentin (Neurontin Tab) 600 mg Q8H PO 06/23/16 13:00 06/24/16 05:01 Gabapentin (Neurontin Tab) 600 mg Q12H PO 06/24/16 17:00 06/25/16 05:01 Gabapentin 600 mg 600 mg Q24H PO 06/25/16 17:00 06/25/16 17:01 Heparin Sodium/ Dextrose (Heparin 25,000 Unit/500ml D5W) 500 ml @ 17 mls/hr Q24H PRN IV 06/22/16 17:30 07/22/16 17:29 06/22/16 17:28 17 MLS/HR Review of Systems Unable to obtain due to patient's limited ability to answer questions. Physical Exam Date Time Temp Pulse Resp B/P Pulse Ox O2 Delivery O2 Flow Rate FiO2 06/22/16 16:15 Room Air 06/22/16 16:15 36.9 65 24 152/97 100 Room Air 06/22/16 15:57 69 22 156/97 97 Room Air 06/22/16 14:49 68 24 152/92 100 Room Air 06/22/16 14:19 63 22 145/90 99 Room Air 06/22/16 13:42 99 Room Air 06/22/16 13:32 60 24 141/89 99 Room Air 06/22/16 12:39 66 24 143/93 98 Room Air 06/22/16 11:44 63 06/22/16 11:37 36.7 66 18 142/93 100 Room Air 06/22/16 11:36 99 Room Air General Appearance: no apparent distress, + thin Head: normocephalic, atraumatic Respiratory/Chest: no respiratory distress Abdomen/GI: non tender, soft Genitourinary - Female: external genitalia normal, normal pelvic exam, + pertinent finding (Speculum exam shows no stool in vaginal vault. Cervix/uterus/ adnexae surgically absent. Vaginal vault is otherwise normal appearing on exam. ) Extremities/Musculoskelatal: no pedal edema Neurologic/Psych: alert, + pertinent finding (awake, alert. Not answering questions verbally. Only shaking head "no" or nodding "yes." However, seems to be able to appropriately answer questions.) Skin: normal color, warm/dry Lymphatic: no adenopathy Laboratory Results Last 24 Hours Test 06/22/16 12:15 06/22/16 12:36 06/22/16 13:17 06/22/16 13:48 White Blood Count 20.11 K/uL Red Blood Count 5.66 M/uL Hemoglobin 12.5 g/dL Hematocrit 38.8 % Mean Corpuscular Volume 68.6 fL Mean Corpuscular Hemoglobin 22.1 pg Mean Corpuscular Hemoglobin Concent 32.2 g/dl Platelet Count 218 K/uL Neutrophils (%) (Auto) 87.5 % Lymphocytes (%) (Auto) 6.8 % Monocytes (%) (Auto) 5.1 % Eosinophils (%) (Auto) 0.0 % Basophils (%) (Auto) 0.0 % Neutrophils # (Auto) 17.57 K/uL Lymphocytes # (Auto) 1.37 K/uL Monocytes # (Auto) 1.03 K/uL Eosinophils # (Auto) 0.00 K/uL Basophils # (Auto) 0.01 K/uL RDW Standard Deviation 59.3 fL RDW Coefficient of Variation 25.1 % Immature Granulocyte % (Auto) 0.6 % Immature Granulocyte # (Auto) 0.13 K/uL Hypochromasia PRESENT Poikilocytosis PRESENT Anisocytosis PRESENT Microcytosis PRESENT Prothrombin Time 13.5 SECONDS Prothromb Time International Ratio 1.3 Activated Partial Thromboplast Time 29.6 SECONDS Partial Thromboplastin Ratio 1.1 Sodium Level 142 mmol/L Potassium Level 2.6 mmol/L Chloride Level 107 mmol/L Carbon Dioxide Level 19 mmol/L Anion Gap 16.0 mmol/L Blood Urea Nitrogen 19 mg/dl Creatinine 0.66 mg/dl Est Creatinine Clear Calc Drug Dose 75.2 ml/min Estimated GFR () 117.7 Estimated GFR (Non- 101.6 BUN/Creatinine Ratio 29.0 Random Glucose 131 mg/dl Calcium Level 9.4 mg/dl Phosphorus Level 2.0 mg/dl Magnesium Level 2.3 mg/dl Total Bilirubin 2.5 mg/dl Direct Bilirubin 1.0 mg/dl Aspartate Amino Transf (AST/SGOT) 113 U/L Alanine Aminotransferase (ALT/SGPT) 52 U/L Alkaline Phosphatase 201 U/L Total Creatine Kinase 1905 U/L Creatine Kinase MB 27.9 ng/ml Troponin I 5.140 ng/ml Total Protein 8.2 gm/dl Albumin 3.7 gm/dl Globulin 4.5 gm/dl Albumin/Globulin Ratio 0.8 Thyroid Stimulating Hormone (TSH) 1.240 uIu/ml Ethyl Alcohol mg/dL < 3.0 mg/dl Bedside Glucose 128 mg/dl Creatine Kinase MB Ratio Urine Color DK YELLOW Urine Appearance CLEAR Urine pH 6.0 Urine Specific [place] 1.022 Urine Protein 2+ Urine Glucose (UA) NEG Urine Ketones 4+ Urine Occult Blood 2+ Urine Nitrite POS Urine Bilirubin NEG Urine Urobilinogen NEG Urine Leukocyte Esterase TRACE Urine WBC (Auto) 10-30 /hpf Urine RBC (Auto) 5-10 /hpf Urine Hyaline Casts (Auto) 5-10 /lpf Urine Epithelial Cells (Auto) 0-5 /lpf Urine Bacteria (Auto) 4+ Urine Opiates Screen POS Urine Methadone, Qualitative NEG Urine Barbiturates NEG Urine Phencyclidine (PCP) Level NEG Ur Amphetamine/Methamphetamine NEG MDMA (Ecstasy) Screen NEG Urine Benzodiazepines Screen NEG Urine Cocaine Metabolite NEG Urine Marijuana (THC) POS Test 06/22/16 16:49 06/22/16 17:36 Total Creatine Kinase U/L Creatine Kinase MB 19.2 ng/ml Creatine Kinase MB Ratio Troponin I 3.900 ng/ml Assessment & Plan On my examination with a lighted speculum in her ICU bed, I do not see any obvious recto-vaginal fistula. Given patient's history as noted in the chart, it seems reasonable that patient fell on her way to the bathroom and suffered incontinence of stool at that time. From questioning patient, it does not seem like she is incontinent of stool at other times, and she has not noted any leakage of stool per vagina. If patient ever notices leakage of stool per vagina in the future, recommend that she followup as an outpatient for reexamination, as examination in the office setting may be better able to diagnose a recto-vaginal fistula. If warranted by symptomatology at that time, could consider CT scan to further evaluate for fistula. However, on this admission I do not recommend this type of imaging due to my negative examination. OBGYN will sign off - please contact with any questions. Thank you
[2016-06-22 19:46] VITALS: BP 146/88; PULSE 74; TEMP 37; O2SAT 98
[2016-06-22 20:00] VITALS: O2SAT 98
[2016-06-22] MEDS: METOPROLOL TARTRATE 25 MG TAB PO SCH (21:46)
[2016-06-22] MEDS: LORAZEPAM 1 MG TAB PO PRN (21:46)
[2016-06-22] MEDS: CALCIUM 600MG + VIT D 400 IU TAB PO SCH (21:46)
[2016-06-22] MEDS: GABAPENTIN 600MG Q6H DOSE PO SCH (23:24)
[2016-06-22 23:46] LABS: PARTIAL THROMBOPLASTIN RATIO 1.6
[2016-06-23] VITALS (11 sets, daily range): BP systolic 128–145; BP diastolic 82–98; PULSE 70–79; TEMP 36.4–37.7; O2SAT 94–100
[2016-06-23] MEDS: HEPARIN 25,000 UNIT/500ML D5W 500 ML IV PRN ×2 (00:18→09:11)
--- NOTE | 2016-06-23 00:26 | CARDIOLOGY CONSULTATION ---
DATE OF CONSULTATION: 06/22/2016 REFERRING PHYSICIAN: Maxime Jameson MD CHIEF COMPLAINT: Elevated troponin. HISTORY OF PRESENT ILLNESS: Ms. Siena Saldana is a 51-year-old woman with an extensive medical history who was found at her residence earlier today with mental status changes and complaining of back pain. It appears that, sometime during the preceding evening, she had fallen at home and could not get up. When EMS arrived, she apparently was "surrounded by beer cans" and mentating appropriately. She was brought to [facility] for an additional evaluation. Once in the Emergency Room, the patient underwent an EKG and serum blood testing, which revealed an elevated troponin and some EKG abnormalities. Based on that information, cardiology was consulted for further recommendation. At the time I interviewed, the patient's mental status is not normal. She is awake and alert, but does not respond well to questions. Her mentation appears to be slow; she will answer yes or no or nod her head and occasionally provide some vocalization, but generally speaking is non-verbal. Currently, her only concern is low back pain. She states that she does have chest pain, but when asked about the chronicity or time periods in which she had chest pain, it does not appear to be recent. She has no chest pain currently. She denies breathing trouble at this time. She denied any current dizziness. She states that she has not been eating well and has some difficulty with eating. PAST MEDICAL HISTORY: Includes: 1. Chronic alcoholism with a history of cirrhosis and liver failure. 2. Cardiac arrest, in the setting of severe liver failure and hypoxia. 3. History of multiple infections and sepsis. 4. Protein calorie malnutrition. 5. Remote history of gastric bypass surgery. 6. Esophageal strictures. 7. Anxiety and chronic pain, currently using a pain pump. PAST SURGICAL HISTORY: Significant for cholecystectomy, gastric bypass surgery, hip surgery and hysterectomy. OUTPATIENT MEDICATIONS: Include alprazolam, baclofen, duloxetine, loperamide, omeprazole and sucralfate. MEDICAL ALLERGIES: INCLUDE ASPIRIN AND TRAMADOL. FAMILY HISTORY: Noncontributory. SOCIAL HISTORY: The patient currently lives in a disabled facility, but is in independent living. She is a lifelong nonsmoker and has a significant alcohol abuse history. She also has had some abuse of narcotics and currently, is on a pain contract using primarily a pain pump. REVIEW OF SYSTEMS: Could not be adequately obtained due to the patient's mental status changes. PHYSICAL EXAMINATION: GENERAL: As reported, the patient's mental status was compromised. She was alert and answered questions yes or no by nodding her head. She was essentially nonverbal. CURRENT VITAL SIGNS: Included a blood pressure of 156/97 with a pulse of 67. HEENT: Sclerae are anicteric. Extraocular movements appear to be intact. Palpation in the submandibular region did not reveal any significant lymphadenopathy. The carotids are palpable bilaterally. There are no bruits on auscultation. There is no jugular venous distention. LUNGS: Auscultation of the lung apices reveal them to be clear. There were no expiratory wheezes. She had normal respiratory effort. CARDIAC: Revealed her to be in a regular rhythm. I did not appreciate any murmurs on examination. ABDOMEN: Soft and nontender. EXTREMITIES: Evaluation of both wrists revealed radial pulses that were equal in intensity. There is no evidence of cyanosis or clubbing. Evaluation of lower extremities did not reveal any significant peripheral edema. She was not jaundiced today. There were no rashes appreciated. Overall, she did appear to be cachectic and malnourished. LABORATORY STUDIES: Currently include sodium of 142, potassium 2.6, BUN was 19, creatinine was 0.6 and bilirubin was 2.5. AST was slightly elevated at 113. Total CK was 1905. Troponin was 5.1. White cell count was 20, hemoglobin was 12 and platelet count was 218. CT scan of the patient's head was performed, which did not reveal any acute intracranial abnormalities. Chest x-ray was also obtained, which did not reveal any active cardiopulmonary disease. A 12-lead EKG was obtained, which revealed the patient to be in normal sinus rhythm with some T-wave changes, specifically in V2; this was the one notable difference compared to the EKG obtained several years ago. She also had a prolonged QT interval. ASSESSMENT AND PLAN: Non-ST elevation myocardial infarction. The patient is not currently complaining of chest discomfort; while her EKG is not normal. There are no ST elevations to suggest acute injury. It is unclear whether this represents some form of demand ischemia given the unknown nature of her recent events. It is very possible that she had a period of hypoxia or possibly even hypoperfusion over the past 24 hours. She also has a significantly elevated creatine kinase, which could represent an element of rhabdomyolysis. The patient is not currently able to discuss options for treatment, but in the past she has filled out a POLST form suggesting she is not interested in any additional procedures, but only palliative care and pain control. Given the absence of chest pain currently and an injury pattern on her EKG, it would seem appropriate to initiate standard therapy for non-ST elevation myocardial infarction to include aspirin and heparin as well as control of her blood pressure and maintenance of good oxygenation. We can obtain serial EKGs, biomarkers, and have a conversation with the patient and/or her family regarding additional invasive options when her mental status improves and the family is available. The patient's overall prognosis is exceedingly poor and whether she would be compliant with medical therapy required after percutaneous intervention is unclear. She also has a history of thrombocytopenia, which could put her at risk of additional bleeding events with required antiplatelet therapy in that setting. I think we can also obtain an echocardiogram to determine if the new wall motion abnormality supports the diagnosis of a recent infarct and once again discuss the plan going forward once the patient is more lucid and the family members have an opportunity to guide us. Prolonged QT interval: This is likely due to the patient's market hypokalemia. Her magnesium level appears to be normal. I would start with replacement of potassium and if this is not effective additional magnesium may also improve her QT interval. Avoiding additional medications may prolong the QT interval further is also advisable MTDD
[2016-06-23] MEDS: NSS + 20MEQ KCL 1000ML 1,000 ML IV SCH ×3 (05:54→17:08)
[2016-06-23] MEDS: GABAPENTIN 600MG Q6H DOSE PO SCH (05:55)
[2016-06-23 06:20] LABS: MEAN CORPUSCULAR HGB CONC 31.5 g/dl (32-36)
[2016-06-23 06:33] LABS: INR 1.2 (0.9-1.1); PARTIAL THROMBOPLASTIN RATIO 1.8; PROTHROMBIN TIME (PATIENT) 12.8 SECONDS (9.0-12.0)
[2016-06-23 06:56] LABS: HEMATOCRIT 32.4 % (37-47); MEAN CELL VOLUME 69.5 fL (80-100); MEAN CORPUSCULAR HEMOGLOBIN 21.9 pg (25-34); RED BLOOD COUNT 4.66 M/uL (4.2-5.4)
[2016-06-23 07:10] LABS: ALB/GLOB RATIO 0.8 (0.9-2); BUN/CREATININE RATIO 31.5 (10-20); C-REACTIVE PROTEIN 3.48 mg/dl (0-0.29); CALCIUM 8.2 mg/dl (8.5-10.1); CREATININE 0.48 mg/dl (0.60-1.20); POTASSIUM 3.4 mmol/L (3.5-5.1)
[2016-06-23] MEDS ORDERED: HEPARIN IV BOLUS 2,000 UNIT in SYRINGE 0 ML IV ONE ×2 (07:30)
[2016-06-23 08:22] LABS: PLATELET COUNT 124 K/uL (130-400); PLT ESTIMATE NORMAL
[2016-06-23] MEDS: CALCIUM 600MG + VIT D 400 IU TAB PO SCH ×2 (09:12→20:58)
[2016-06-23] MEDS: FERROUS SULFATE 325 MG TAB PO SCH ×2 (09:12→16:52)
[2016-06-23] MEDS: DICLOFENAC SOD 1% GEL 100 GM TUBE EXT SCH ×4 (09:12→20:57)
[2016-06-23] MEDS: METOPROLOL TARTRATE 25 MG TAB PO SCH ×2 (09:13→20:58)
[2016-06-23] MEDS: THIAMINE HCL 100 MG TAB PO SCH (09:13)
--- NOTE | 2016-06-23 11:39 | DIAGNOSTIC IMAGING REPORT ---
THORACIC SPINE 3 VIEWS ROUTINE CLINICAL HISTORY: Back pain. COMPARISON STUDY: Chest CT October 29, 2015. FINDINGS: Left upper quadrant surgical clips and staple lines are present. Moderate to severe compression deformities of 2 mid thoracic vertebral bodies are noted. These are either new or significantly progressive since prior exams. Mild multilevel degenerative disc disease is present. IMPRESSION: Interval involvement of moderate to severe compression fractures of two mid thoracic vertebral bodies, likely T6 and T7. Electronically signed by: Benedict Vaughn M.D. 06/23/2016 11:38 AM Dictated Date/Time: 06/23/2016 11:33 AM
[2016-06-23] MEDS ORDERED: TRAMADOL HCL 50 MG TAB PO STA (11:48)
[2016-06-23] MEDS ORDERED: OXYCODONE/ACETAMINOPHEN 5-325 TAB PO STA (12:02)
--- NOTE | 2016-06-23 12:13 | DIAGNOSTIC IMAGING REPORT ---
LUMBAR SPINE 5 VIEWS HISTORY: Low back pain COMPARISON: Lumbar spine 11/28/2015. FINDINGS: There is no fracture. No subluxation. Internal fixation within the left hip. Suture material and skin marleen within the upper abdomen. Mild dextroscoliosis, unchanged. Right-sided pain pump is identified. Mild superior endplate compression deformity at T12 and L1 are again noted. These are not significant changed. There may be mild central concavity at L3 and L4 which is slight progressed. IMPRESSION: 1. Mild superior endplate central cavity at L3 and L4 which is slightly progressed. These may represent age-indeterminate compression deformities. 2. Old mild superior endplate compression fractures at T12 and L1. Electronically signed by: Brennen King M.D. 06/23/2016 12:11 PM Dictated Date/Time: 06/23/2016 11:56 AM
[2016-06-23] MEDS: GABAPENTIN 600MG Q8H DOSE PO SCH ×2 (12:36→20:59)
[2016-06-23] MEDS: LORAZEPAM 2 MG/ML 1 ML VIAL IV PRN ×2 (12:36→19:12)
--- NOTE | 2016-06-23 12:36 | CARDIOLOGY PROGRESS NOTE ---
DATE: 06/23/2016 DATE: 06/23/2016. SUBJECTIVE: This morning, Mrs. Saldana is much more conversant. She states tat she has "pain all over." This is her main concern. She does not necessarily localize pain to any one part of her body. She states that she has difficulty moving secondary to severe pain. She states that her breathing is "comfortable". PHYSICAL EXAMINATION: GENERAL: She was alert. She was more conversant. She answered questions appropriately. VITAL SIGNS: Currently included blood pressure 138/87 with a pulse of 70. LUNGS: Auscultation of her lung apices reveal them to be clear. CARDIAC EXAMINATION: Revealed her to be in a regular rhythm without murmur. LABORATORY STUDIES: Obtained today included a sodium 143, potassium of 3.4, BUN was 15, creatinine was 0.48. White cell count was 11.6, hemoglobin was 10.2, platelet count was 124. Repeat EKG was obtained this morning which revealed some improvement in the QT interval. She is maintaining a sinus rhythm. Cardiac troponin was also drawn this morning which was 3.9. This is down slightly from admission which was 5.1. ASSESSMENT AND PLAN: 1. Non-ST elevation myocardial infarction. The patient does have elevated cardiac biomarkers, which are slightly improving. She does not report overt symptoms of chest discomfort. Question regarding the incident that brought her into the hospital chest pain was not a prominent feature. She currently has all over pain which is fairly common for her. I think at this point, an echocardiogram May shed some light on any concerns for a recent significant infarct. I did question her regarding her enthusiasm for additional cardiac procedures and she seemed to be interested in procedures if necessary. Whether she would be compliant with the required therapy is unclear. Whether we can change her overall prognosis with therapy is also unclear. At this point, I will continue heparin and aspirin and continue to trend her markers. We will need to have a continued discussion with the patient and her family regarding any additional cardiac procedures or potential for interventions prior to pursuing therapy for this NSTEMI. 2. Prolonged QT interval. This appears to be improving with potassium replacement. Her magnesium is normal. I believe the EKG calculated the QTC wrong today but nonetheless electrolyte replenishment should be the first treatment in this case. The patient has been started on ceftriaxone and in this setting will be important to refrain from adding lansoprazole since this may precipitate prolonged QT interval.
[2016-06-23] MEDS ORDERED: NURSING VERBAL MED ORDER ONE (14:30)
[2016-06-23] MEDS: CHECK FENTANYL PATCH PLACEMENT SCH (16:52)
[2016-06-23] MEDS: FENTANYL 50 MCG/HR TDSY TD SCH (16:52)
--- NOTE | 2016-06-23 16:56 | Hospitalist Progress Note ---
Hospitalist Progress Note Date of Service June 23, 2016. Subjective Pt evaluation today including: conversation w/ patient, physical exam, chart review c/p pain all over. Denies CP, SOB at rest, fevers. Medications Medications (Trade) Dose Ordered Sig/Flori Route Start Time Stop Time Status Last Admin Dose Admin Potassium Chloride/Sodium Chloride (Nss + 20meq KCl 1000ml) 1,000 ml @ 125 mls/hr Q8H IV 06/22/16 17:00 07/22/16 16:59 06/23/16 12:36 125 MLS/HR Calcium/Vitamin D (Caltrate Plus Tab) 1 tab BID PO 06/22/16 21:00 07/22/16 20:59 06/23/16 09:12 1 TAB Diclofenac Sodium (Voltaren 1% Top Gel) 1 appln QID EXT 06/22/16 17:00 07/22/16 16:59 06/23/16 12:36 1 APPLN Thiamine HCl (Vitamin B-1 Tab) 100 mg DAILY PO 06/22/16 17:15 07/22/16 17:14 06/23/16 09:13 100 MG Metoprolol Tartrate 25 mg 25 mg Q12 PO 06/22/16 21:00 07/22/16 20:59 06/23/16 09:13 25 MG Ceftriaxone Sodium/Dextrose (Rocephin Inj/ Dextrose Add-[place] 50ML) 50 ml @ 100 mls/hr DAILY@1800 IV 06/22/16 18:00 07/02/16 17:59 06/22/16 20:00 100 MLS/HR Gabapentin (Neurontin Tab) 1,200 mg TODAY@1715 PO 06/22/16 17:15 06/22/16 17:16 DC 06/22/16 17:09 1,200 MG Gabapentin (Neurontin Tab) 600 mg Q6H PO 06/22/16 23:00 06/23/16 05:01 DC 06/23/16 05:55 600 MG Gabapentin 600 mg 600 mg Q8H PO 06/23/16 13:00 06/24/16 05:01 06/23/16 12:36 600 MG Heparin Sodium (Porcine) 4000 unit/Syringe 4 ml @ 10 mls/min NOW ONCE IV 06/22/16 17:30 06/22/16 17:31 DC 06/22/16 17:27 10 MLS/MIN Heparin Sodium/ Dextrose 500 ml @ 21 mls/hr [id number] PRN IV 06/22/16 17:30 07/22/16 17:29 06/23/16 09:11 21 MLS/HR Heparin Sodium (Porcine) 2000 unit/Syringe 2 ml @ 10 mls/min TODAY@0000 ONCE IV 06/23/16 00:00 06/23/16 00:01 DC 06/23/16 00:18 10 MLS/MIN Heparin Sodium (Porcine)/Syringe (Heparin Iv Bolus/Syringe) 2 ml @ 10 mls/min TODAY@0730 ONCE IV 06/23/16 07:30 06/23/16 07:31 DC 06/23/16 09:10 10 MLS/MIN Oxycodone/ Acetaminophen (Percocet 5-325mg Tab) 1 tab NOW STAT PO 06/23/16 12:02 06/23/16 12:07 DC 06/23/16 12:35 1 TAB Objective Vital Signs Date Time Temp Pulse Resp B/P Pulse Ox O2 Delivery O2 Flow Rate FiO2 06/23/16 15:25 36.5 79 25 145/98 97 Room Air 06/23/16 12:00 Room Air 06/23/16 11:53 36.4 74 24 138/87 97 Room Air 06/23/16 08:06 36.7 70 20 138/87 97 Room Air 06/23/16 08:00 97 Room Air 06/23/16 04:00 96 Room Air 06/23/16 03:39 37.3 76 32 134/82 96 Room Air 06/23/16 00:20 98 Room Air 06/23/16 00:03 37.7 71 32 128/83 97 Room Air 06/22/16 20:00 98 Room Air 06/22/16 19:46 37.0 74 28 146/88 98 Room Air Physical Exam General Appearance: + mild distress, + cachetic Eyes: normal inspection ENT: normal ENT inspection Neck: supple, no adenopathy Respiratory/Chest: chest non-tender, lungs clear Cardiovascular: regular rate, rhythm, no edema Abdomen: normal bowel sounds, non tender, soft Extremities: no pedal edema Neurologic/Psychiatric: pipe caulker II-XII nml as tested, no motor/sensory deficits, oriented x 3 Skin: normal color, + pallor Laboratory Results Last 24 Hours Test 06/22/16 18:46 06/22/16 23:25 06/23/16 06:02 06/23/16 13:46 Total Creatine Kinase 1068 U/L Activated Partial Thromboplast Time 41.7 SECONDS 46.4 SECONDS 51.1 SECONDS Partial Thromboplastin Ratio 1.6 1.8 2.0 White Blood Count 11.60 K/uL Red Blood Count 4.66 M/uL Hemoglobin 10.2 g/dL Hematocrit 32.4 % Mean Corpuscular Volume 69.5 fL Mean Corpuscular Hemoglobin 21.9 pg Mean Corpuscular Hemoglobin Concent 31.5 g/dl RDW Standard Deviation 61.5 fL RDW Coefficient of Variation 25.4 % Platelet Count 124 K/uL Platelet Estimate NORMAL Prothrombin Time 12.8 SECONDS Prothromb Time International Ratio 1.2 Sodium Level 143 mmol/L Potassium Level 3.4 mmol/L Chloride Level 113 mmol/L Carbon Dioxide Level 20 mmol/L Anion Gap 10.0 mmol/L Blood Urea Nitrogen 15 mg/dl Creatinine 0.48 mg/dl Est Creatinine Clear Calc Drug Dose 103.4 ml/min Estimated GFR () 130.7 Estimated GFR (Non- 112.8 BUN/Creatinine Ratio 31.5 Random Glucose 127 mg/dl Calcium Level 8.2 mg/dl Total Bilirubin 1.5 mg/dl Aspartate Amino Transf (AST/SGOT) 72 U/L Alanine Aminotransferase (ALT/SGPT) 45 U/L Alkaline Phosphatase 157 U/L C-Reactive Protein 3.48 mg/dl Total Protein 6.4 gm/dl Albumin 2.9 gm/dl Globulin 3.5 gm/dl Albumin/Globulin Ratio 0.8 Vitamin B12 Level 973 pg/mL Folate > 24.00 ng/mL Diagnostic Results LUMBAR SPINE 5 VIEWS HISTORY: Low back pain COMPARISON: Lumbar spine 11/28/2015. FINDINGS: There is no fracture. No subluxation. Internal fixation within the left hip. Suture material and skin marleen within the upper abdomen. Mild dextroscoliosis, unchanged. Right-sided pain pump is identified. Mild superior endplate compression deformity at T12 and L1 are again noted. These are not significant changed. There may be mild central concavity at L3 and L4 which is slight progressed. IMPRESSION: 1. Mild superior endplate central cavity at L3 and L4 which is slightly progressed. These may represent age-indeterminate compression deformities. 2. Old mild superior endplate compression fractures at T12 and L1. Electronically signed by: Brennen King M.D. 06/23/2016 12:11 PM Dictated Date/Time: 06/23/2016 11:56 AM THORACIC SPINE 3 VIEWS ROUTINE CLINICAL HISTORY: Back pain. COMPARISON STUDY: Chest CT October 29, 2015. FINDINGS: Left upper quadrant surgical clips and staple lines are present. Moderate to severe compression deformities of 2 mid thoracic vertebral bodies are noted. These are either new or significantly progressive since prior exams. Mild multilevel degenerative disc disease is present. IMPRESSION: Interval involvement of moderate to severe compression fractures of two mid thoracic vertebral bodies, likely T6 and T7. Electronically signed by: Benedict Vaughn M.D. 06/23/2016 11:38 AM Dictated Date/Time: 06/23/2016 11:33 AM Assessment and Plan 51 y/o female, with PMHx of MS, chronic pain, anxiety, and alcoholic cirrhosis, who presented to the ED via EMS due to fall w/ complaints of lower back pain. Fall: - Admit to tele for cardiac monitoring - Cardiac enzymes pending - Abnormal EKG- repeat tomorrow AM and PRN w/ CP - Toxicology screen pending - PT/OT evaluations Troponin elevation; - Appreciate Cardiology input. Will review echo report. Further eval and treatment as per . Currently in ASA and heparin gtt. Hypokalemia w/ K 2.6 at admission: - Repleted in ED w/ KCL 40 mEq PO and 10 mEq KCL x2 bags - Continue repletion w/ IVF + 20 mEq KCL Rhabdomyolysis: - Treat w/ IVF @ 125 ml/hr Leukocytosis w/ WBC of 20.11 at admission: - Follow CBC - CXR- negative for acute process - UA pending - No s/s of infections at this time- continue to monitor need for antibiotic treatment Feces noted in vagina in ED: Consult AUTHOR, appreciate recommendations.Doubt fistula. Chronic diffuse body pain/MS: - Intrathecal pump - Hold pain management at this time until patient's mental status improves Anxiety: Ativan Alcohol abuse: - IV Banana bag x1 in ED - Alcohol protocol Alcoholic cirrhosis- baseline INR of 1.2: - Follow PT/INR - Elevated LFTs- follow CMP Back pain - Compression fractures noted in thoracic vertebrae. Will consult Orthopedics. GI Prophylaxis: Maalox PRN, IV Zofran PRN, Colace and/or Milk of Mag PRN DVT prophylaxis: GUIDO and SCDs, hold chemical therapy pending PT/INR Code Status: LEVEL I, FULL Dispo: - From home, lives alone - PT/OT evaluations pending - surgical services tech consulted
[2016-06-23] MEDS: LORAZEPAM 1 MG TAB PO PRN (22:32)
[2016-06-24] VITALS (10 sets, daily range): BP systolic 104–176; BP diastolic 73–92; PULSE 73–94; TEMP 36.4–36.8; O2SAT 9–99
[2016-06-24] MEDS: CHECK FENTANYL PATCH PLACEMENT SCH ×3 (00:06→16:19)
[2016-06-24] MEDS: NSS + 20MEQ KCL 1000ML 1,000 ML IV SCH ×3 (01:00→16:53)
[2016-06-24 04:30] LABS: MEAN CORPUSCULAR HGB CONC 30.5 g/dl (32-36)
[2016-06-24 04:40] LABS: HEMATOCRIT 31.5 % (37-47); MEAN CELL VOLUME 71.8 fL (80-100); MEAN CORPUSCULAR HEMOGLOBIN 21.9 pg (25-34); RED BLOOD COUNT 4.39 M/uL (4.2-5.4); WHITE BLOOD COUNT 6.67 K/uL (4.8-10.8)
[2016-06-24 04:52] LABS: INR 1.1 (0.9-1.1); PARTIAL THROMBOPLASTIN RATIO 1.8; PROTHROMBIN TIME (PATIENT) 12.1 SECONDS (9.0-12.0)
[2016-06-24 04:56] LABS: ALB/GLOB RATIO 0.8 (0.9-2); BUN/CREATININE RATIO 17.1 (10-20); CALCIUM 7.8 mg/dl (8.5-10.1); CREATININE 0.51 mg/dl (0.60-1.20); POTASSIUM 3.6 mmol/L (3.5-5.1)
[2016-06-24 04:57] LABS: PLATELET COUNT 106 K/uL (130-400); PLT ESTIMATE DECREASED
[2016-06-24] MEDS: HEPARIN 25,000 UNIT/500ML D5W 500 ML IV PRN (06:24)
[2016-06-24] MEDS: GABAPENTIN 600MG Q8H DOSE PO SCH (06:26)
[2016-06-24] MEDS: LORAZEPAM 1 MG TAB PO PRN ×4 (06:27→18:29)
[2016-06-24] MEDS ORDERED: HEPARIN IV BOLUS 2,000 UNIT in SYRINGE 0 ML IV ONE (06:30)
[2016-06-24] MEDS: DICLOFENAC SOD 1% GEL 100 GM TUBE EXT SCH ×4 (09:00→22:17)
[2016-06-24] MEDS: CALCIUM 600MG + VIT D 400 IU TAB PO SCH ×2 (10:12→22:17)
[2016-06-24] MEDS: THIAMINE HCL 100 MG TAB PO SCH (10:12)
[2016-06-24] MEDS: FERROUS SULFATE 325 MG TAB PO SCH ×2 (10:13→17:24)
[2016-06-24] MEDS: METOPROLOL TARTRATE 25 MG TAB PO SCH ×2 (10:13→22:18)
--- NOTE | 2016-06-24 10:24 | CARDIOLOGY PROGRESS NOTE ---
DATE: 06/24/2016 DATE: 06/24/2016. SUBJECTIVE: This morning, Mrs. Saldana claims to have persistent pain. When asked about the location she states "all over." It does not appear to be worse in any particular location. She states she does not have trouble with breathing; however, does hurt with breathing but denied shortness of breath. She has not been ambulatory out of bed. Apparently she has refused any physical therapy. PHYSICAL EXAMINATION: GENERAL: The patient was alert and conversant today. She answered all questions appropriately. Her mood and affect appeared to be normal. VITAL SIGNS: Include blood pressure 134/92 with a pulse of 78. LUNGS: Auscultation of the lung apices reveal them to be clear. CARDIAC EXAMINATION: Revealed him to be in a regular rhythm. Review of her telemetry did not reveal any significant arrhythmias. LABORATORY STUDIES: Obtained this morning include a white cell count of 6.6, hemoglobin 9.6, platelet count was 106. Sodium is 141, potassium is 3.6, BUN was 9, creatinine was 0.5. I reviewed the EKG obtained this morning reveals normal sinus rhythm with a QT interval that is still slightly prolonged but improved. ASSESSMENT AND PLAN: 1. Non-ST elevation myocardial infarction. The patient has been maintained on heparin and aspirin. I think this can be continued until tomorrow morning at which point heparin can be discontinued. The patient has not had any symptoms of chest discomfort outside of that associated with her whole body pain. Whether this represents demand ischemia, or a plaque rupture event is unclear as her history is fairly unreliable. She did not endorse symptoms of overt chest discomfort leading up to her admission; however. My main concern is her stability for any form of intervention. She currently is not eating, she has not been ambulatory, she has been refused physical therapy, in the past she has refused additional procedures outside of those associated with increased comfort. I did have a discussion with her regarding procedures today and she was noncommittal regarding any form of noninvasive treatment. I am not convinced she is a good candidate for an intervention given the need for good medical compliance subsequent to stenting. She has not been reliable and she has chronic alcoholism which would put her at additional risk with any form of intervention. I think at this point we can assess her LV function and perhaps perform a perfusion study if it seems as if there was any hope that she could get intervention prior to proceeding with any type of invasive therapy. I think we should wait for PT and social work to evaluate her to determine her overall disposition and likely compliance before proceeding with any type of additional coronary evaluation. 2. Prolonged QT interval. This appears to be improving with potassium replacement which should be continued given her potassium level today.
[2016-06-24] MEDS ORDERED: NURSING VERBAL MED ORDER ONE (12:45)
--- NOTE | 2016-06-24 14:14 | Progress Note ---
Subjective Date of Service: June 24, 2016. Subjective Pt evaluation today including: conversation w/ patient, physical exam, chart review, lab review, review of studies, review of inpatient medication list Requesting pain meds somnolent on exam unable to do PT/OT Problem List Medical Problems: (1) Alcohol dependence Status: Acute (2) Alcohol intoxication Status: Acute (3) Ankle fracture, lateral malleolus, closed Status: Acute (4) Chronic abdominal pain Status: Acute (5) Chronic anemia Status: Acute (6) Failure of outpatient treatment Status: Acute (7) Fever Status: Acute (8) GI bleed Status: Acute (9) Head injury Status: Acute (10) Hyperbilirubinemia Status: Acute (11) Hypokalemia Status: Acute (12) Hypomagnesemia Status: Acute (13) Jaundice Status: Acute (14) Left elbow pain Status: Acute (15) Pelvic ring fracture Status: Acute (16) Urinary tract infection Status: Acute (17) Vomiting Status: Acute Review of Systems Constitutional: + fatigue, + weakness, No chills, No fever Respiratory: No cough, No shortness of breath, No sputum, No wheezing Cardiac: No chest pain, No orthopnea Abdomen: No diarrhea, No nausea, No pain Musculoskeletal: + joint pain, + muscle pain Female : No dysuria, No urinary frequency Neurologic: + numbness/tingling, No memory loss Objective Vital Signs Date Time Temp Pulse Resp B/P Pulse Ox O2 Delivery O2 Flow Rate FiO2 06/24/16 12:16 36.8 88 28 121/79 99 Room Air 06/24/16 12:00 97 Room Air 06/24/16 08:15 36.6 94 20 131/85 98 Room Air 06/24/16 08:00 98 Room Air 06/24/16 04:00 Room Air 06/24/16 03:07 36.5 78 28 134/92 97 Room Air 06/24/16 00:01 36.6 74 24 138/91 98 Room Air 06/23/16 23:59 Room Air 06/23/16 20:00 94 Room Air 06/23/16 19:35 37.1 78 22 141/91 100 Room Air 06/23/16 16:00 95 Room Air 06/23/16 15:25 36.5 79 25 145/98 97 Room Air Physical Exam General Appearance: WD/WN, + mild distress, + thin Eyes: PERRL, EOMI Neck: supple, no adenopathy Respiratory/Chest: lungs clear, + decreased breath sounds Cardiovascular: no edema, no gallop Abdomen: non tender, soft Laboratory Results Last 24 Hours Test 06/24/16 04:20 White Blood Count 6.67 K/uL Red Blood Count 4.39 M/uL Hemoglobin 9.6 g/dL Hematocrit 31.5 % Mean Corpuscular Volume 71.8 fL Mean Corpuscular Hemoglobin 21.9 pg Mean Corpuscular Hemoglobin Concent 30.5 g/dl RDW Standard Deviation 64.9 fL RDW Coefficient of Variation 25.7 % Platelet Count 106 K/uL Platelet Estimate DECREASED Prothrombin Time 12.1 SECONDS Prothromb Time International Ratio 1.1 Activated Partial Thromboplast Time 46.4 SECONDS Partial Thromboplastin Ratio 1.8 Sodium Level 141 mmol/L Potassium Level 3.6 mmol/L Chloride Level 114 mmol/L Carbon Dioxide Level 20 mmol/L Anion Gap 7.0 mmol/L Blood Urea Nitrogen 9 mg/dl Creatinine 0.51 mg/dl Est Creatinine Clear Calc Drug Dose 97.4 ml/min Estimated GFR () 128.1 Estimated GFR (Non- 110.6 BUN/Creatinine Ratio 17.1 Random Glucose 123 mg/dl Calcium Level 7.8 mg/dl Total Bilirubin 0.9 mg/dl Aspartate Amino Transf (AST/SGOT) 46 U/L Alanine Aminotransferase (ALT/SGPT) 39 U/L Alkaline Phosphatase 143 U/L Total Protein 5.9 gm/dl Albumin 2.6 gm/dl Globulin 3.3 gm/dl Albumin/Globulin Ratio 0.8 Assessment and Plan 51 y/o female, with PMHx of MS, chronic pain, anxiety, and alcoholic cirrhosis, who presented to the ED via EMS due to fall w/ complaints of lower back pain. Fall: - Admit to tele for cardiac monitoring - NSTEMI noted, cards consulted, no further intervention at this time - Abnormal EKG- repeat tomorrow AM and PRN w/ CP - Toxicology screen pos for marijuana and opiates - PT/OT evaluations Troponin elevation; - Appreciate Cardiology input. Will review echo report. Further eval and treatment as per . Currently in ASA and heparin gtt. Hypokalemia w/ K 2.6 at admission: - Repleted in ED w/ KCL 40 mEq PO and 10 mEq KCL x2 bags - Continue repletion w/ IVF + 20 mEq KCL Rhabdomyolysis: - Treat w/ IVF @ 125 ml/hr Leukocytosis w/ WBC of 20.11 at admission: - Follow CBC - CXR- negative for acute process - UA pending - No s/s of infections at this time- continue to monitor need for antibiotic treatment Feces noted in vagina in ED: Consult EXPLOSIVES HANDLER, appreciate recommendations.Doubt fistula. Chronic diffuse body pain/MS: - Intrathecal pump - Hold pain management at this time until patient's mental status improves Anxiety: Ativan Alcohol abuse: - IV Banana bag x1 in ED - Alcohol protocol Alcoholic cirrhosis- baseline INR of 1.2: - Follow PT/INR - Elevated LFTs- follow CMP Back pain - Compression fractures noted in thoracic vertebrae. Will consult Orthopedics. GI Prophylaxis: Maalox PRN, IV Zofran PRN, Colace and/or Milk of Mag PRN DVT prophylaxis: GUIDO and SCDs, hold chemical therapy pending PT/INR Code Status: LEVEL I, FULL Dispo: - From home, lives alone - PT/OT evaluations pending - creative services director consulted
[2016-06-24] MEDS: CEFTRIAXONE SOD INJ 1 GM in DEXTROSE 5% ADD-VANTAGE 50ML 50 ML IV SCH (17:24)
[2016-06-24] MEDS: GABAPENTIN 600MG Q12H DOSE PO SCH (17:24)
[2016-06-25] VITALS (7 sets, daily range): BP systolic 90–130; BP diastolic 50–88; PULSE 71–85; TEMP 36.7–37; O2SAT 95–98
[2016-06-25] MEDS: NSS + 20MEQ KCL 1000ML 1,000 ML IV SCH ×3 (00:57→17:36)
[2016-06-25] MEDS: GABAPENTIN 600MG Q12H DOSE PO SCH (05:53)
[2016-06-25] MEDS: FERROUS SULFATE 325 MG TAB PO SCH ×2 (07:30→16:47)
[2016-06-25] MEDS: CHECK FENTANYL PATCH PLACEMENT SCH ×3 (08:00→16:00)
[2016-06-25 08:15] LABS: MEAN CORPUSCULAR HGB CONC 31.2 g/dl (32-36)
[2016-06-25 08:24] LABS: INR 1.1 (0.9-1.1); PROTHROMBIN TIME (PATIENT) 11.5 SECONDS (9.0-12.0)
[2016-06-25 08:25] LABS: HEMATOCRIT 34.9 % (37-47); MEAN CELL VOLUME 74.1 fL (80-100); MEAN CORPUSCULAR HEMOGLOBIN 23.1 pg (25-34); RED BLOOD COUNT 4.71 M/uL (4.2-5.4); WHITE BLOOD COUNT 5.05 K/uL (4.8-10.8)
[2016-06-25 08:49] LABS: PLATELET COUNT 109 K/uL (130-400); PLT ESTIMATE DECREASED
[2016-06-25] MEDS: LORAZEPAM 1 MG TAB PO PRN ×4 (08:49→21:28)
[2016-06-25] MEDS: DICLOFENAC SOD 1% GEL 100 GM TUBE EXT SCH ×4 (08:50→19:46)
[2016-06-25] MEDS: METOPROLOL TARTRATE 25 MG TAB PO SCH ×2 (08:51→21:25)
[2016-06-25] MEDS: CALCIUM 600MG + VIT D 400 IU TAB PO SCH ×2 (08:52→19:46)
[2016-06-25] MEDS: THIAMINE HCL 100 MG TAB PO SCH (08:52)
[2016-06-25 09:13] LABS: ALB/GLOB RATIO 0.8 (0.9-2); BUN/CREATININE RATIO 9.2 (10-20); CREATININE 0.52 mg/dl (0.60-1.20); POTASSIUM 4.2 mmol/L (3.5-5.1)
[2016-06-25 09:41] LABS: CALCIUM 8.6 mg/dl (8.5-10.1)
--- NOTE | 2016-06-25 10:29 | CONSULTATION REPORT ---
DATE OF CONSULTATION: 06/25/2016 Plan of care discussed with Dr. Baez. CHIEF COMPLAINT: Diffuse nonspecific pain complaints. SUBJECTIVE: Ms. Saldana is a 51-year-old white female who is well known to the pain service from multiple prior admissions. The patient has history of multiple sclerosis, chronic pain complaints with history of intrathecal pump implantation managed by [facility] in the outpatient setting with refilling occurring by [facility]. The patient has history of alcoholic cirrhosis and anxiety disorder. The patient presented to the Emergency Department after a fall in the home. The patient was reportedly intoxicated at the time of discovery by EMS. The patient indicates that her pain is severe and diffuse and nonspecific. She is unable to localize her pain complaints at this time. She reports missing an appointment with her pain management in the outpatient setting at the end of last month and reportedly ran out of fentanyl and Dilaudid. The patient denies specific axial pain in the thoracic or lumbar spinal locations at this time. She denies a true radicular pattern to her symptoms. She reports some generalized weaknesses. The patient denies bowel incontinence. The patient currently has a urinary catheter in place. PAST MEDICAL HISTORY: 1. Anxiety disorder. 2. History of alcohol abuse. 3. Chronic back pain. 4. History of intrathecal pump and catheter implantation. 5. Endometriosis. 6. Fibromyalgia. 7. GERD. 8. Multiple sclerosis. 9. History of THC utilization. PAST SURGICAL HISTORY: 1. Gastric bypass. 2. Gastrostomy. 3. WILLIE -- left-sided. 4. Cholecystectomy. 5. Total hysterectomy. 6. Intrathecal pump and catheter implantation. SOCIAL HISTORY: The patient is , currently living alone. She is a former smoker. The patient denies illicit drug use, although was urine tested positive for THC upon this admission. FAMILY HISTORY: 1. Cancer. 2. Aneurysm. 3. Stroke. ALLERGIES: 1. CLARITHROMYCIN. 2. ASA. 3. TRAMADOL. 4. OXAPROZIN. CURRENT MEDICATIONS: Reviewed extensively in EMR -- refer for current listing. Intrathecal pump was interrogated -- refer to pump printout in the EMR. REVIEW OF SYSTEMS: The patient denies complaints related to cardiac, pulmonary, GI, , endocrine, neurologic, hepatic, renal, ENT, dermatologic, musculoskeletal other than described above in HPI. PHYSICAL EXAMINATION: VITAL SIGNS: Temperature 36.7 degrees Celsius, pulse 80, respirations 22, BP 116/76, pulse oximetry 95 on room air. GENERAL: Ms. Saldana is sitting up eating breakfast upon entering the room, in no obvious acute distress. Her speech and thought process appear to be appropriate. Her mood and affect are flat. Her cognition appears to be intact. She was oriented to time, person and place. BACK AND SPINE: The patient has fentanyl in place in the right scapular location. There is no erythema at the site of attachment. The patient is diffusely generally tender over the thoracic and lumbar spinal locations, which is nonfocal. She is moderately tender in the paravertebral musculature. CHEST: The patient is tender over the costosternal junction to direct palpation. She is nontender with AP and lateral compression. There is no focal tenderness along the chest wall. ABDOMEN: Soft and nondistended. No organomegaly is appreciated. No rebound or guarding. EXTREMITIES: Upper extremity strength is rated at 4/5 with hand hand printed circuit board assembler and opposition. Sensation was intact. Villarreal sign negative. Sensation intact without deficits. LOWER EXTREMITIES: Dorsi and plantar flexion 4+/5 and equal bilaterally. Sensation is intact without deficits. No evidence of allodynia, hyperpathia or hyperalgesic response. She is generally tender to gross palpation of the lower extremity musculature without focal tenderness. NEUROLOGIC: Cranial nerves are grossly intact. Ambulatory function not witnessed. ASSESSMENT: 1. Chronic pain requiring implantation of intrathecal pump and catheter delivery system. 2. Thoracic compression fracture involving T6 and T7 -- moderate to severe, new finding. 3. Old mild superior endplate compression fractures at T12 and L1. 4. Mild superior endplate central cavity of L3 and L4 -- slightly progressed compared to prior. 5. Anxiety disorder. 6. History of THC use. 7. History of alcohol abuse. 8. Multiple sclerosis. 9. Fibromyalgia. 10. Alcoholic cirrhosis. TREATMENT AND RECOMMENDATIONS: 1. Intrathecal pump was interrogated which revealed morphine concentration 30 mg/mL and fentanyl 400 mcg/mL with her current doses of morphine 3.498 mg/day and fentanyl 46.64 mcg/day. Due to her high concentrations and reported history of poor pain control with intrathecal pain medications, the patient should undergo MRI of the thoracic spine with and without contrast to assess for a potential catheter tip granuloma. This can be completed in the outpatient setting and should be managed and evaluated by her current pain management team as this would not change current management. 2. Would also recommend thoracolumbar x-rays to evaluate catheter to ensure fracture has not occurred as well due to recent fall injury. 3. The patient has significant risk of opioid misuse/abuse due to her comorbid medical conditions. Would recommend maintaining her current opioid regimen with her intrathecal dosing without change as well as her fentanyl patch. Would not recommend discharge with opiate therapy. Would recommend she follow up with her pain management team upon discharge for further recommendations. 4. Consider use of Toradol IV upon this admission for pain control if no medical contraindications. 5. Will sign off on the patient at this time. Thank you for the consultation with Ms. Saldana. FAUZIA
--- NOTE | 2016-06-25 11:19 | CARDIOLOGY PROGRESS NOTE ---
DATE: 06/25/2016 SUBJECTIVE: This morning, Mrs. Saldana repeats her complaints of total body pain. This appears to be her main complaint. She denies significant breathing trouble but does have some pain with inspiration. She does not localize the pain to any specific area, but does note that her head does not hurt. PHYSICAL EXAMINATION: GENERAL: She was alert. She was oriented. She answered questions appropriately. VITAL SIGNS: Currently include a blood pressure of 130/80 with a pulse of 85. HEENT: Her sclerae are anicteric. LUNGS: Auscultation of the lung apices reveal them to be clear. CARDIAC EXAMINATION: Revealed to be in a normal rhythm without murmur. LABORATORY STUDIES: Obtained today included a white cell count of 5, a hemoglobin of 10, a platelet count of 109. Sodium is 141, potassium is 4.2, BUN was 5, creatinine was 0.52. ASSESSMENT AND PLAN: 1. Non-ST elevation myocardial infarction. The patient has completed heparin infusion, should be on standard antiplatelet therapy. She appears to have some reaction to aspirin, so Plavix can be offered as a substitute. She is not a candidate for any form of surgical revascularization given her other comorbidities. I do not believe there is any risk of compromising her options with use of this medication. Today will order an echocardiogram in order to assess her left ventricular function. Her overall poor functional status generally precludes more aggressive treatment of her coronary disease. In the absence of a notable cardiomyopathy or symptoms associated with coronary disease, I would be very hesitant to pursue any form of invasive evaluation or therapy. At this point, she is not ambulatory, she is refusing PT and OT and eating very little. Given her overall poor functional status and the likely recurrent nature of her substance abuse associated with poor compliance with medical therapy, I think she would be high risk for any form of percutaneous intervention. 2. Prolonged QT interval. This had improved slightly yesterday. Potassium is normal today. We will repeat an EKG and continue to monitor.
[2016-06-25] MEDS: CLOPIDOGREL BISULFATE 75 MG TAB PO SCH (12:00)
--- NOTE | 2016-06-25 12:57 | Progress Note ---
Subjective Date of Service: June 25, 2016. Subjective Pt evaluation today including: conversation w/ patient, physical exam, chart review, lab review, review of studies, review of inpatient medication list States pain all over, not one place worse than other Resting in bed comfortably Denies any worsening numbness, weakness No other concerns noted Problem List Medical Problems: (1) Alcohol dependence Status: Acute (2) Alcohol intoxication Status: Acute (3) Ankle fracture, lateral malleolus, closed Status: Acute (4) Chronic abdominal pain Status: Acute (5) Chronic anemia Status: Acute (6) Failure of outpatient treatment Status: Acute (7) Fever Status: Acute (8) GI bleed Status: Acute (9) Head injury Status: Acute (10) Hyperbilirubinemia Status: Acute (11) Hypokalemia Status: Acute (12) Hypomagnesemia Status: Acute (13) Jaundice Status: Acute (14) Left elbow pain Status: Acute (15) Pelvic ring fracture Status: Acute (16) Urinary tract infection Status: Acute (17) Vomiting Status: Acute Review of Systems Constitutional: No chills, No fever Respiratory: No cough, No dyspnea on exertion, No shortness of breath, No sputum, No wheezing Cardiac: No chest pain, No orthopnea Abdomen: No constipation, No diarrhea, No nausea, No pain, No vomiting Musculoskeletal: + joint pain, + muscle pain Female : No dysuria, No urinary frequency Objective Vital Signs Date Time Temp Pulse Resp B/P Pulse Ox O2 Delivery O2 Flow Rate FiO2 06/25/16 11:17 36.7 71 16 112/76 98 Room Air 06/25/16 09:04 37.0 85 20 98 06/25/16 08:00 Room Air 06/25/16 07:43 37.0 85 20 130/88 98 Nasal Cannula 3.0 06/25/16 04:16 36.7 80 22 116/76 95 Room Air 06/25/16 04:00 Room Air 06/24/16 23:59 36.4 73 24 105/78 97 Room Air 06/24/16 23:59 Room Air 06/24/16 20:03 36.7 88 22 111/79 96 Room Air 06/24/16 20:00 Room Air 06/24/16 16:00 87 06/24/16 16:00 97 Room Air 06/24/16 15:35 36.7 87 19 104/73 98 Room Air Physical Exam General Appearance: WD/WN, + mild distress Neck: supple, no adenopathy Respiratory/Chest: lungs clear, normal breath sounds Cardiovascular: no edema, no gallop Abdomen: non tender, soft Neurologic/Psychiatric: alert, oriented x 3 Laboratory Results Last 24 Hours Test 06/25/16 08:00 White Blood Count 5.05 K/uL Red Blood Count 4.71 M/uL Hemoglobin 10.9 g/dL Hematocrit 34.9 % Mean Corpuscular Volume 74.1 fL Mean Corpuscular Hemoglobin 23.1 pg Mean Corpuscular Hemoglobin Concent 31.2 g/dl RDW Standard Deviation 66.8 fL RDW Coefficient of Variation 26.3 % Platelet Count 109 K/uL Platelet Estimate DECREASED Prothrombin Time 11.5 SECONDS Prothromb Time International Ratio 1.1 Activated Partial Thromboplast Time 25.9 SECONDS Partial Thromboplastin Ratio 1.0 Sodium Level 141 mmol/L Potassium Level 4.2 mmol/L Chloride Level 112 mmol/L Carbon Dioxide Level 22 mmol/L Anion Gap 7.0 mmol/L Blood Urea Nitrogen 5 mg/dl Creatinine 0.52 mg/dl Est Creatinine Clear Calc Drug Dose 107.6 ml/min Estimated GFR () 127.3 Estimated GFR (Non- 109.9 BUN/Creatinine Ratio 9.2 Random Glucose 130 mg/dl Calcium Level 8.6 mg/dl Total Bilirubin 1.0 mg/dl Aspartate Amino Transf (AST/SGOT) 41 U/L Alanine Aminotransferase (ALT/SGPT) 38 U/L Alkaline Phosphatase 168 U/L Total Protein 6.3 gm/dl Albumin 2.8 gm/dl Globulin 3.5 gm/dl Albumin/Globulin Ratio 0.8 Assessment and Plan 51 y/o female, with PMHx of MS, chronic pain, anxiety, and alcoholic cirrhosis, who presented to the ED via EMS due to fall w/ complaints of lower back pain. Fall: - NSTEMI noted, cards consulted, no further intervention at this time secondary to comorbidities - Toxicology screen pos for marijuana and opiates - PT/OT evaluations Troponin elevation; - Appreciate Cardiology input. Further eval and treatment as per . Cont heparin gtt and plavix Hypokalemia w/ K 2.6 at admission: - Repleted in ED w/ KCL 40 mEq PO and 10 mEq KCL x2 bags - Continue repletion w/ IVF + 20 mEq KCL Rhabdomyolysis: - Treat w/ IVF @ 125 ml/hr Leukocytosis w/ WBC of 20.11 at admission: - Follow CBC - CXR- negative for acute process - UA pending - No s/s of infections at this time- continue to monitor need for antibiotic treatment Feces noted in vagina in ED: Consult ESE TEACHER, appreciate recommendations.Doubt fistula. Chronic diffuse body pain/MS: - Intrathecal pump - Hold pain management at this time until patient's mental status improves Anxiety: Ativan Alcohol abuse: - IV Banana bag x1 in ED - Alcohol protocol Alcoholic cirrhosis- baseline INR of 1.2: - Follow PT/INR - Elevated LFTs- follow CMP Back pain - Compression fractures noted in thoracic vertebrae. Will consult Orthopedics. GI Prophylaxis: Maalox PRN, IV Zofran PRN, Colace and/or Milk of Mag PRN DVT prophylaxis: GUIDO and SCDs, hold chemical therapy pending PT/INR Code Status: LEVEL I, FULL Dispo: - From home, lives alone - PT/OT evaluations pending - library services dean consulted
--- NOTE | 2016-06-25 16:26 | ORTHOPEDIC CONSULTATION ---
DATE OF CONSULTATION: 06/25/2016 CHIEF COMPLAINT: Back pain. HISTORY OF PRESENT ILLNESS: This is a 51-year-old female with multiple medical issues, history of previous compression fractures throughout the thoracolumbar spine that presents after a fall at home. She complains of mostly lumbar back pain at this time, states her legs ache but denies any neural deficits. PAST MEDICAL HISTORY: She does have a very significant past medical history including cirrhosis, chronic back pain, alcohol abuse, placement of an intrathecal pump that is apparently not working at this time as well as multiple sclerosis. PHYSICAL EXAMINATION: She is alert and oriented. She has marked difficulty sitting up in bed secondary to either weakness or pain. She demonstrates reasonable strength to lower extremities. Sensation is intact. IMAGING: Does demonstrate evidence of compression fractures throughout the thoracic and lumbar spine. It is difficult to determine precise age. ASSESSMENT: Multilevel compression fractures. PLAN: At this time, unfortunately would be unable to obtain an MRI based on her intrathecal pump. This would help us with determining the age of the fractures. Considered possible bracing; however, I do not believe she would tolerate this fairly well. Ultimately, she would be a very poor candidate for kyphoplasty, both from her medical history as well as her severe osteoporosis creating adjacent level stressors and further collapse. At this point, would not recommend any surgical intervention, but a slow transition to transfers and ultimately a rehab center.
[2016-06-25] MEDS ORDERED: GABAPENTIN 600MG X1 DOSE PO SCH (17:00)
[2016-06-25] MEDS: CEFTRIAXONE SOD INJ 1 GM in DEXTROSE 5% ADD-VANTAGE 50ML 50 ML IV SCH (17:36)
--- NOTE | 2016-06-25 20:10 | ECHOCARDIOGRAM REPORT ---
*NOTICE TO RECEIVING [employer] This information is strictly Confidential and protected under [place] law. [place] law prohibits you from making any further disclosure of this information unless further disclosure is expressly permitted by the written consent of the person to whom it pertains or is authorized by law. A general authorization for the release of medical or other information is not sufficient for this purpose. Hospital accepts no responsibility if the information is made available to any other person, INCLUDING THE PATIENT. Interpretation Summary * Name: LINDSAY OROZCO Study Date: 06/25/2016 01:58 PM BP: 112/76 mmHg * Patient Location: .[id number] HR: 76 * : 1965 (M/d/yyyy) Gender: Female Height: 61 in * Age: 51 yrs Ethnicity: CA Weight: 138 lb * Ordering Physician: Jose Alberto Blakely * Referring Physician: Self, Referred * Performed By: Tara Wiggins RDCS * * Reason For Study: AMI * BSA: 1.6 m2 * -- Conclusions -- * There is borderline asymmetric left ventricular hypertrophy. * Left ventricular systolic function is mildly reduced. * There are regional wall motion abnormalities as specified. * There is moderate tricuspid regurgitation. * Right ventricular systolic pressure is normal. * Grade I diastolic dysfunction, (abnormal relaxation pattern). * Compared to a study from 2016, there has been interval development of wall motion abnormalities and associated reduction in LV function. Procedure Details * A complete two-dimensional transthoracic echocardiogram was performed (2D, M-mode, Doppler and color flow Doppler). Left Ventricle * The left ventricle is normal in size. * There is borderline asymmetric left ventricular hypertrophy. * Left ventricular systolic function is mildly reduced. * Ejection Fraction = 45-50%. * There are regional wall motion abnormalities as specified. Right Ventricle * The right ventricle is normal in size and function. Atria * The left atrial size is normal. * Right atrial size is normal. Mitral Valve * The mitral valve is grossly normal. * There is trace mitral regurgitation. Tricuspid Valve * The tricuspid valve is not well visualized, but is grossly normal. * There is moderate tricuspid regurgitation. * Right ventricular systolic pressure is normal. Aortic Valve * The aortic valve is normal in structure and function. * No hemodynamically significant valvular aortic stenosis. * There is no significant aortic regurgitation. Great Vessels * The aortic root is normal size. Pericardium/Pleural * There is no pericardial effusion. Left Ventricular Diastolic Function * Grade I diastolic dysfunction, (abnormal relaxation pattern). MMode 2D Measurements and Calculations IVSd 1.3 cm IVSs 1.6 cm LVIDd 4.1 cm LVIDs 3.0 cm LVPWd 1.1 cm LVPWs 1.4 cm IVS/LVPW 1.2 FS 27.7 % EDV(Teich) 73.6 ml ESV(Teich) 33.7 ml EF(Teich) 54.2 % EDV(cubed) 68.2 ml ESV(cubed) 25.8 ml EF(cubed) 62.2 % % IVS thick 19.6 % % LVPW thick 35.1 % LV mass(C)d 168.8 grams LV mass(C)dI 104.6 grams/m\S\2 LV mass(C)s 155.9 grams LV mass(C)sI 96.6 grams/m\S\2 SV(Teich) 39.9 ml SI(Teich) 24.7 ml/m\S\2 SV(cubed) 42.4 ml SI(cubed) 26.3 ml/m\S\2 Ao root diam 2.9 cm Ao root area 6.8 cm\S\2 LA dimension 3.3 cm LA/Ao 1.1 LVAd ap4 26.2 cm\S\2 LVLd ap4 8.0 cm EDV(MOD-sp4) 72.2 ml LVAs ap4 17.0 cm\S\2 LVLs ap4 6.7 cm ESV(MOD-sp4) 35.0 ml EF(MOD-sp4) 51.5 % LVAd ap2 25.8 cm\S\2 LVLd ap2 8.2 cm EDV(MOD-sp2) 69.4 ml LVAs ap2 14.5 cm\S\2 LVLs ap2 6.5 cm ESV(MOD-sp2) 27.6 ml EF(MOD-sp2) 60.2 % SV(MOD-sp4) 37.2 ml SI(MOD-sp4) 23.1 ml/m\S\2 SV(MOD-sp2) 41.8 ml SI(MOD-sp2) 25.9 ml/m\S\2 Doppler Measurements and Calculations MV E max rossy 69.4 cm/sec MV A max rossy 87.8 cm/sec MV E/A 0.79 MV dec time 0.19 sec Ao V2 max 138.7 cm/sec Ao max PG 7.7 mmHg Ao max PG (full) 2.3 mmHg LV V1 max PG 5.4 mmHg LV V1 max 116.4 cm/sec TR max rossy 211.2 cm/sec
[2016-06-26 00:11] LABS: COD UR NEGATIVE NG/ML (CUTOFF=50); HYDROCOD UR NEGATIVE NG/ML (CUTOFF=50); HYDROMOR UR NEGATIVE NG/ML (CUTOFF=50); MORPHINE UR 2980 NG/ML (CUTOFF=50); NORHYDROCODONE CONF UR NEGATIVE NG/ML (CUTOFF=50); OXYMORPH UR NEGATIVE NG/ML (CUTOFF=50)
[2016-06-26] MEDS: CHECK FENTANYL PATCH PLACEMENT SCH ×4 (00:13→23:19)
[2016-06-26] MEDS: NSS + 20MEQ KCL 1000ML 1,000 ML IV SCH ×3 (01:20→16:36)
[2016-06-26] MEDS: LORAZEPAM 1 MG TAB PO PRN ×6 (03:29→23:56)
[2016-06-26 06:56] VITALS: BP 108/72; PULSE 81; TEMP 36.7; O2SAT 98
[2016-06-26] MEDS: FERROUS SULFATE 325 MG TAB PO SCH ×2 (07:25→16:36)
[2016-06-26] MEDS: CALCIUM 600MG + VIT D 400 IU TAB PO SCH ×2 (07:25→20:08)
[2016-06-26] MEDS: CLOPIDOGREL BISULFATE 75 MG TAB PO SCH (07:26)
[2016-06-26] MEDS: THIAMINE HCL 100 MG TAB PO SCH (07:26)
[2016-06-26] MEDS: DICLOFENAC SOD 1% GEL 100 GM TUBE EXT SCH ×4 (07:26→20:09)
[2016-06-26 08:09] LABS: PARTIAL THROMBOPLASTIN RATIO 1.1
[2016-06-26 08:44] LABS: MEAN CORPUSCULAR HGB CONC 31.2 g/dl (32-36); PLATELET COUNT 76 K/uL (130-400)
[2016-06-26 08:45] LABS: HEMATOCRIT 29.8 % (37-47); MEAN CELL VOLUME 74.5 fL (80-100); MEAN CORPUSCULAR HEMOGLOBIN 23.3 pg (25-34); PLT ESTIMATE DECREASED; WHITE BLOOD COUNT 5.05 K/uL (4.8-10.8)
[2016-06-26 10:11] VITALS: BP 112/76; PULSE 87
[2016-06-26] MEDS: METOPROLOL TARTRATE 25 MG TAB PO SCH ×2 (10:11→20:13)
[2016-06-26] MEDS: FENTANYL 50 MCG/HR TDSY TD SCH (14:53)
--- NOTE | 2016-06-26 14:54 | Progress Note ---
Subjective Date of Service: June 26, 2016. Subjective Pt evaluation today including: conversation w/ patient, physical exam, chart review, lab review, review of studies, review of inpatient medication list Asking for more and more pain meds Looks comfortably upon walking into room Problem List Medical Problems: (1) Alcohol dependence Status: Acute (2) Alcohol intoxication Status: Acute (3) Ankle fracture, lateral malleolus, closed Status: Acute (4) Chronic abdominal pain Status: Acute (5) Chronic anemia Status: Acute (6) Failure of outpatient treatment Status: Acute (7) Fever Status: Acute (8) GI bleed Status: Acute (9) Head injury Status: Acute (10) Hyperbilirubinemia Status: Acute (11) Hypokalemia Status: Acute (12) Hypomagnesemia Status: Acute (13) Jaundice Status: Acute (14) Left elbow pain Status: Acute (15) Pelvic ring fracture Status: Acute (16) Urinary tract infection Status: Acute (17) Vomiting Status: Acute Review of Systems Constitutional: + fatigue, + weakness, No chills, No fever Respiratory: No cough, No dyspnea on exertion, No shortness of breath, No sputum, No wheezing Cardiac: No chest pain, No orthopnea Abdomen: No diarrhea, No nausea, No pain, No vomiting Musculoskeletal: + joint pain, + muscle pain Female : No dysuria, No urinary frequency Neurologic: + weakness, No paralysis Objective Vital Signs Date Time Temp Pulse Resp B/P Pulse Ox O2 Delivery O2 Flow Rate FiO2 06/26/16 10:11 87 112/76 06/26/16 08:00 Room Air 06/26/16 06:56 36.7 81 18 108/72 98 Room Air 06/26/16 02:05 Room Air 06/25/16 23:40 36.8 78 20 104/71 96 Room Air 06/25/16 21:23 81 18 109/73 06/25/16 19:24 Room Air 06/25/16 16:17 36.8 80 16 90/50 96 Room Air Physical Exam General Appearance: WD/WN, + mild distress, + thin Neck: supple, no adenopathy Respiratory/Chest: lungs clear, + decreased breath sounds Cardiovascular: no edema, no JVD Abdomen: non tender, soft Extremities: non-tender, normal inspection Neurologic/Psychiatric: alert, normal mood/affect Laboratory Results Last 24 Hours Test 06/26/16 06:55 White Blood Count 5.05 K/uL Red Blood Count 4.00 M/uL Hemoglobin 9.3 g/dL Hematocrit 29.8 % Mean Corpuscular Volume 74.5 fL Mean Corpuscular Hemoglobin 23.3 pg Mean Corpuscular Hemoglobin Concent 31.2 g/dl RDW Standard Deviation 67.7 fL RDW Coefficient of Variation 27.0 % Platelet Count 76 K/uL Platelet Estimate DECREASED Activated Partial Thromboplast Time 27.6 SECONDS Partial Thromboplastin Ratio 1.1 Assessment and Plan 51 y/o female, with PMHx of MS, chronic pain, anxiety, and alcoholic cirrhosis, who presented to the ED via EMS due to fall w/ complaints of lower back pain. Fall: - NSTEMI noted, cards consulted, no further intervention at this time secondary to comorbidities - Toxicology screen pos for marijuana and opiates - PT/OT evaluations Troponin elevation; - Appreciate Cardiology input. Further eval and treatment as per . Cont heparin gtt and plavix Hypokalemia w/ K 2.6 at admission: - Repleted in ED w/ KCL 40 mEq PO and 10 mEq KCL x2 bags - Continue repletion w/ IVF + 20 mEq KCL Rhabdomyolysis: - Treat w/ IVF @ 125 ml/hr Leukocytosis w/ WBC of 20.11 at admission: - Follow CBC - CXR- negative for acute process - UA pending - No s/s of infections at this time- continue to monitor need for antibiotic treatment Feces noted in vagina in ED: Consult AUTOMOBILE MECHANIC SUPERVISOR, appreciate recommendations.Doubt fistula. Chronic diffuse body pain/MS: - Intrathecal pump - Hold pain management at this time until patient's mental status improves - Cont fentanyl patch Anxiety: Ativan Alcohol abuse: - IV Banana bag x1 in ED - Alcohol protocol Alcoholic cirrhosis- baseline INR of 1.2: - Follow PT/INR - Elevated LFTs- follow CMP Back pain - Compression fractures noted in thoracic vertebrae. Will consult Orthopedics. No further intervention at this time. GI Prophylaxis: Maalox PRN, IV Zofran PRN, Colace and/or Milk of Mag PRN DVT prophylaxis: GUIDO and SCDs, hold chemical therapy pending PT/INR Code Status: LEVEL I, FULL Dispo: - From home, lives alone - PT/OT evaluations pending - marketing services manager consulted
[2016-06-26 15:00] VITALS: BP 113/75; PULSE 83; TEMP 36.8; O2SAT 97
[2016-06-26] MEDS ORDERED: FENTANYL PATCH REMOVE & WASTE SCH (15:00)
[2016-06-26] MEDS: CEFTRIAXONE SOD INJ 1 GM in DEXTROSE 5% ADD-VANTAGE 50ML 50 ML IV SCH (18:00)
[2016-06-26 20:10] VITALS: BP 106/68; PULSE 89
[2016-06-26] MEDS ORDERED: NURSING VERBAL MED ORDER ONE (20:45)
--- NOTE | 2016-06-26 21:35 | CARDIOLOGY PROGRESS NOTE ---
DATE: 06/26/2016 SUBJECTIVE: Mrs. Saldana continues to complain of all over body pain, does not appear to be a specific area which is worse. She has not ambulated or participated in physical therapy due to pain. She is eating very little and has a poor appetite. She denies any overt chest discomfort outside of her generalized body pain. She states that she has some difficulty with breathing but this appears to be more related to pain with deep inspiration and actual dyspnea. PHYSICAL EXAMINATION: GENERAL: She was alert and oriented. She answered all questions appropriately. CURRENT VITAL SIGNS: Include blood pressure 113/75 with a pulse of 83. LUNGS: Auscultation of her lung apices reveal them to be clear. CARDIAC EXAMINATION: Revealed her to be in a regular rhythm. I do not appreciate any murmurs on exam. LABORATORY STUDIES: Today include a white cell count of 5, hemoglobin of 9.3 and platelet count of 76. Sodium is 141, potassium is 4.2, BUN was 5, creatinine was 0.52. ASSESSMENT AND PLAN: Non-ST elevation myocardial infarction. The patient does have echocardiographic changes as well as elevated cardiac biomarkers suggesting a recent event. The etiology of this event is unclear, but could have been related to a plaque rupture situation. The patient was placed on heparin for over 48 hours. She has not had any symptoms of chest discomfort. While traditionally we would try to perform an early invasive strategy with coronary angiography, her comorbidities preclude proceeding in this direction currently. She has an element of thrombocytopenia and we will need to stop her Plavix. She also has generalized pain which is difficult to control and at this point it appears to be bedbound. Her clinical status on discharge and concerns over compliance with medications also preclude coronary angiography at this point. Unfortunately, we will need to continue with simple medical therapy and with her thrombocytopenia, discontinue antiplatelet agents. We will continue her beta gayle and consider initiation of YURI inhibition given the slight reduction in her LV systolic function.
[2016-06-26] MEDS: PANTOprazole SOD 40 MG TAB PO SCH (21:44)
[2016-06-26] MEDS: KETOROLAC TROMETHAMINE 30 MG/ML VIAL IV. PRN (21:44)
[2016-06-27 01:00] VITALS: BP 100/65; PULSE 73; TEMP 36.8; O2SAT 97
[2016-06-27] MEDS: NSS + 20MEQ KCL 1000ML 1,000 ML IV SCH ×3 (01:08→17:04)
[2016-06-27] MEDS: LORAZEPAM 1 MG TAB PO PRN ×5 (06:32→23:56)
[2016-06-27] MEDS: KETOROLAC TROMETHAMINE 30 MG/ML VIAL IV. PRN ×3 (06:48→18:28)
[2016-06-27 07:35] VITALS: BP 121/79; PULSE 80; TEMP 36.7; O2SAT 97
[2016-06-27] MEDS: DICLOFENAC SOD 1% GEL 100 GM TUBE EXT SCH ×4 (08:00→20:17)
[2016-06-27] MEDS: PANTOprazole SOD 40 MG TAB PO SCH ×2 (08:06→20:17)
[2016-06-27] MEDS: THIAMINE HCL 100 MG TAB PO SCH (08:07)
[2016-06-27] MEDS: FERROUS SULFATE 325 MG TAB PO SCH ×2 (08:07→17:00)
[2016-06-27] MEDS: CALCIUM 600MG + VIT D 400 IU TAB PO SCH ×2 (08:07→20:17)
[2016-06-27] MEDS: CHECK FENTANYL PATCH PLACEMENT SCH ×2 (08:08→15:55)
[2016-06-27] MEDS: METOPROLOL TARTRATE 25 MG TAB PO SCH ×2 (09:15→20:19)
[2016-06-27] MEDS: ONDANSETRON INJ 2 MG/ML 2 ML VIAL IV PRN ×2 (12:21→18:27)
[2016-06-27] MEDS ORDERED: NURSING VERBAL MED ORDER ONE (14:15)
[2016-06-27] MEDS: PROMETHAZINE HCL INJ 12.5 MG in SODIUM CHLORIDE 0.9% 50ML 50 ML IV PRN ×2 (14:56→20:15)
--- NOTE | 2016-06-27 15:07 | Progress Note ---
Subjective Date of Service: June 27, 2016. Subjective Pt evaluation today including: conversation w/ patient, physical exam, chart review, lab review, review of studies, review of inpatient medication list Problem List Medical Problems: (1) Alcohol dependence Status: Acute (2) Alcohol intoxication Status: Acute (3) Ankle fracture, lateral malleolus, closed Status: Acute (4) Chronic abdominal pain Status: Acute (5) Chronic anemia Status: Acute (6) Failure of outpatient treatment Status: Acute (7) Fever Status: Acute (8) GI bleed Status: Acute (9) Head injury Status: Acute (10) Hyperbilirubinemia Status: Acute (11) Hypokalemia Status: Acute (12) Hypomagnesemia Status: Acute (13) Jaundice Status: Acute (14) Left elbow pain Status: Acute (15) Pelvic ring fracture Status: Acute (16) Urinary tract infection Status: Acute (17) Vomiting Status: Acute Review of Systems Constitutional: No chills, No fever Respiratory: No cough, No shortness of breath, No sputum, No wheezing Cardiac: No chest pain, No orthopnea Abdomen: No diarrhea, No nausea, No pain, No vomiting Musculoskeletal: + joint pain, + muscle pain Female : No dysuria, No urinary frequency Objective Vital Signs Date Time Temp Pulse Resp B/P Pulse Ox O2 Delivery O2 Flow Rate FiO2 06/27/16 08:00 Room Air 06/27/16 07:35 36.7 80 18 121/79 97 Room Air 06/27/16 01:00 36.8 73 20 100/65 97 Room Air 06/27/16 00:02 Room Air 06/26/16 21:00 Room Air 06/26/16 20:10 89 106/68 06/26/16 16:00 Room Air Physical Exam General Appearance: WD/WN, no apparent distress Neck: supple, no adenopathy Respiratory/Chest: lungs clear, normal breath sounds Cardiovascular: no edema, no gallop Abdomen: non tender, soft Neurologic/Psychiatric: alert, oriented x 3 Laboratory Results Last 24 Hours Test 06/27/16 07:15 Activated Partial Thromboplast Time 26.8 SECONDS Partial Thromboplastin Ratio 1.0 Assessment and Plan 51 y/o female, with PMHx of MS, chronic pain, anxiety, and alcoholic cirrhosis, who presented to the ED via EMS due to fall w/ complaints of lower back pain. Fall: - NSTEMI noted, cards consulted, no further intervention at this time secondary to comorbidities - Toxicology screen pos for marijuana and opiates - PT/OT evaluations, awaiting rehab Troponin elevation; - Appreciate Cardiology input. Further eval and treatment as per . Cont heparin gtt and plavix Hypokalemia w/ K 2.6 at admission: - Repleted in ED w/ KCL 40 mEq PO and 10 mEq KCL x2 bags - Continue repletion w/ IVF + 20 mEq KCL Rhabdomyolysis: - Treat w/ IVF @ 125 ml/hr Leukocytosis w/ WBC of 20.11 at admission: - Follow CBC - CXR- negative for acute process - UA pending - No s/s of infections at this time- continue to monitor need for antibiotic treatment Feces noted in vagina in ED: Consult LEAD SUPPLY WORKER, appreciate recommendations.Doubt fistula. Chronic diffuse body pain/MS: - Intrathecal pump - Hold pain management at this time until patient's mental status improves - Cont fentanyl patch Anxiety: Ativan Alcohol abuse: - IV Banana bag x1 in ED - Alcohol protocol Alcoholic cirrhosis- baseline INR of 1.2: - Follow PT/INR - Elevated LFTs- follow CMP Back pain - Compression fractures noted in thoracic vertebrae. Will consult Orthopedics. No further intervention at this time. GI Prophylaxis: Maalox PRN, IV Zofran PRN, Colace and/or Milk of Mag PRN DVT prophylaxis: GUIDO and SCDs, hold chemical therapy pending PT/INR Code Status: LEVEL I, FULL Dispo: - From home, lives alone - PT/OT evaluations pending - student services counselor consulted
[2016-06-27 16:35] VITALS: BP 93/61; PULSE 88; TEMP 37.2; O2SAT 96
[2016-06-27] MEDS: CEFTRIAXONE SOD INJ 1 GM in DEXTROSE 5% ADD-VANTAGE 50ML 50 ML IV SCH (18:28)
[2016-06-27 23:40] VITALS: BP 103/69; PULSE 83; TEMP 36.7; O2SAT 96
[2016-06-28] MEDS: KETOROLAC TROMETHAMINE 30 MG/ML VIAL IV. PRN ×3 (00:05→17:13)
[2016-06-28] MEDS: ONDANSETRON INJ 2 MG/ML 2 ML VIAL IV PRN ×3 (00:05→17:04)
[2016-06-28] MEDS: CHECK FENTANYL PATCH PLACEMENT SCH ×3 (00:28→16:00)
[2016-06-28] MEDS: NSS + 20MEQ KCL 1000ML 1,000 ML IV SCH ×3 (02:04→17:08)
[2016-06-28 07:26] VITALS: BP 152/92; PULSE 93; TEMP 36.6; O2SAT 97
[2016-06-28] MEDS: THIAMINE HCL 100 MG TAB PO SCH (07:30)
[2016-06-28] MEDS: METOPROLOL TARTRATE 25 MG TAB PO SCH ×2 (07:30→20:17)
[2016-06-28] MEDS: CALCIUM 600MG + VIT D 400 IU TAB PO SCH ×2 (07:30→20:15)
[2016-06-28] MEDS: PANTOprazole SOD 40 MG TAB PO SCH ×2 (07:30→20:16)
[2016-06-28] MEDS: FERROUS SULFATE 325 MG TAB PO SCH ×2 (07:30→17:09)
[2016-06-28] MEDS: DICLOFENAC SOD 1% GEL 100 GM TUBE EXT SCH ×4 (07:31→20:15)
[2016-06-28] MEDS: LORAZEPAM 1 MG TAB PO PRN ×3 (08:56→20:16)
--- NOTE | 2016-06-28 09:08 | CARDIOLOGY PROGRESS NOTE ---
DATE: 06/28/2016 This morning the patient continues to have diffuse body pain, primarily concentrated in the back and legs at this point. She states it is somewhat difficult to breathe due to discomfort with deep inspiration. She had some nausea this morning and received some antiemetic medication. Report in the chart says she sat up and dangled her legs yesterday, but the patient denies this. She has certainly not been ambulatory and essentially bedbound since admission. PHYSICAL EXAMINATION: GENERAL: She is alert and oriented. She answers all questions appropriately. VITAL SIGNS: Include blood pressure 152/92 with a pulse of 93. LUNGS: Auscultation of her lung apices reveals them to be clear. CARDIAC: Reveals her to be in a regular rhythm. There is a holosystolic murmur appreciated on exam. LABORATORY STUDIES: Obtained today are still pending. ASSESSMENT AND PLAN: 1. Non-ST elevation myocardial infarction. The patient did have elevation of cardiac biomarkers and does have new wall motion abnormalities on her echocardiogram suggesting an intercurrent event. Our efforts at treatment have been complicated by her poor functional status and thrombocytopenia. At this point, I think we can safely say that a conservative approach is warranted due to her history of noncompliance, essentially bedbound status, thrombocytopenia, and other comorbidities. I would not advocate coronary angiography at this point and we will proceed with medical therapy as an alternative. Generally speaking, the patient should be on an antiplatelet agent, but she has a notable ALLERGY TO ASPIRIN and currently has thrombocytopenia. Should her platelet count improve, Plavix could be considered on a daily basis. 2. Ischemic cardiomyopathy. The patient does have slightly reduced left ventricular systolic function, likely due to an intercurrent myocardial infarction. She is currently on beta gayle therapy and I would advocate initiation of lisinopril 2.5-5 mg daily given her higher blood pressures and left ventricular dysfunction. 3. Prolonged QT. This appears to have normalized with treatment of her electrolyte abnormalities. FINAL RECOMMENDATIONS: 1. Initiation of YURI inhibitor therapy with lisinopril. 2. Defer re-initiation of Plavix until thrombocytopenia resolves. 3. No plans for angiography or coronary intervention due to the patient's history of poor compliance and poor functional status. Should her condition improve significantly, this could be reevaluated. Cardiology will sign off at this point. Please reconsult for additional questions or new concerns.
[2016-06-28 10:21] LABS: MEAN CORPUSCULAR HGB CONC 31.4 g/dl (32-36)
[2016-06-28] MEDS ORDERED: NURSING VERBAL MED ORDER ONE (10:45)
[2016-06-28 10:49] LABS: HEMATOCRIT 29.3 % (37-47); MEAN CELL VOLUME 76.5 fL (80-100); RED BLOOD COUNT 3.83 M/uL (4.2-5.4); WHITE BLOOD COUNT 3.18 K/uL (4.8-10.8)
[2016-06-28 10:52] LABS: PLATELET COUNT 84 K/uL (130-400)
[2016-06-28 10:53] LABS: PLT ESTIMATE DECREASED
[2016-06-28] MEDS ORDERED: MICONAZOLE NITRATE POWDER 43 GM EXT PRN (11:00)
--- NOTE | 2016-06-28 13:09 | Discharge Instructions ---
Discharge Instructions Date of Service June 28, 2016. Admission Reason for Admission: Fall, Hypokalemia, Rhabdomyolysis, Uti Discharge Discharge Diagnosis / Problem: Fall, Rhabdomyolysis, compression fractures Discharge Goals Goal(s): Decrease discomfort, Improve function, Increase independence, Improve disease control, Learn about illness, Diagnostic testing, Therapeutic intervention Activity Recommendations Activity Limitations: resume your previous activity Exercise/Sports Limitations: as tolerated . Instructions / Follow-Up Instructions / Follow-Up Patient admitted with fall and compression fractures Patient to be discharged to [facility] Will need further physical therapy prior to discharge home Please continue with pain medications at this time with fentanyl patch Will need to follow up with pain management as an outpatient Current Hospital Diet Patient's current hospital diet: Regular Diet Discharge Diet Recommended Diet: Regular Diet Pending Studies Studies pending at discharge: no Medical Emergencies . Who to Call and When: Medical Emergencies: If at any time you feel your situation is an emergency, please call 911 immediately. . Non-Emergent Contact Non-Emergency issues call your: Primary Care Provider Call Non-Emergent contact if: your pain is worsening . . "Provider Documentation" section prepared by Parish An. . VTE Core Measure Inpt VTE Proph given/why not?: Boyd Monzon, SCD's
--- NOTE | 2016-06-28 13:54 | Discharge Summary ---
Discharge Summary Date of Service June 28, 2016. Discharge Summary Admission Date: June 22, 2016 at 16:04 Discharge Date: June 28, 2016 Discharge Disposition: Rehab ([facility]) Principal Diagnosis: Fall, Rhabdo, Compression fractures Immunizations: Have You Had Influenza Vaccine: Unknown History of Tetanus Vaccine?: Unknown History of Pneumococcal: Unknown History of Hepatitis B Vaccine: Unknown Consultations: Orthopedics Pain management Medication Reconciliation Continued Medications: Calcium Carbonate-Vitamin D W/ (Caltrate 600 Plus) 1 Tab Tab 1 TAB PO BID for 30 Days, #60 TAB Diclofenac Sod (Voltaren) 100 Appln/100 Gm Gel 1 APPLN EXT QID, #30 APPLN Fentanyl (Duragesic) 50 Mcg Tdsy 50 MCG TD CQ72HR, #10 Ferrous Sulfate (Ferrous Sulfate) 325 Mg Tab 325 MG PO BIDM for 30 Days, TAB Lorazepam (Lorazepam) 1 Mg Tab 1 MG PO Q4 PRN for Anxiety, #30 TAB Ondansetron Hcl (Zofran) 4 Mg Tab 8 MG PO Q6 PRN for Nausea Discontinued Medications: Hydromorphone HCl (Hydromorphone HCl) 2 Mg Tab 2 MG PO QID PRN for Pain, #120 Sulfa/Trimethoprim (Bactrim Ds 800MG/160MG) Tab 1 TAB PO BID, #19 TAB Discharge Exam Review of Systems: Constitutional: No chills, No fever Respiratory: No cough, No sputum Cardiovascular: No chest pain, No orthopnea Abdomen: No constipation, No diarrhea, No nausea, No pain Musculoskeletal: + joint pain, + muscle pain Genitourinary - Female: No dysuria, No urinary frequency, No urinary urgency Neurologic: No paralysis, No weakness Physical Exam: General Appearance: WD/WN, + mild distress, + thin Neck: supple, no adenopathy Respiratory/Chest: lungs clear, normal breath sounds Cardiovascular: no edema, no gallop Abdomen / GI: non tender, no organomegaly Neurologic/Psychiatric: alert, normal mood/affect Hospital Course 51 y/o female, with PMHx of MS, chronic pain, anxiety, and alcoholic cirrhosis, who presented to the ED via EMS due to fall w/ complaints of lower back pain. Fall with sustained compression fractures - NSTEMI noted, cards consulted, no further intervention at this time secondary to comorbidities - Toxicology screen pos for marijuana and opiates - PT/OT evaluations, discharge to rehab, orthopedics consulted, no surgical intervention, rehab recommended Troponin elevation; - Appreciate Cardiology input. Further eval and treatment as per . Cont heparin gtt and plavix Hypokalemia w/ K 2.6 at admission: - Repleted in ED w/ KCL 40 mEq PO and 10 mEq KCL x2 bags - Continue repletion w/ IVF + 20 mEq KCL Rhabdomyolysis: - Treat w/ IVF @ 125 ml/hr Leukocytosis w/ WBC of 20.11 at admission: - Follow CBC - CXR- negative for acute process - UA neg - No s/s of infections at this time- continue to monitor need for antibiotic treatment Feces noted in vagina in ED: Consult ROUND UP RING HAND, appreciate recommendations. No fistula found, no further episodes noted per pt or nursing Chronic diffuse body pain/MS: - Intrathecal pump - Hold pain management at this time until patient's mental status improves - Cont fentanyl patch, f/u with pain management as OP Anxiety: Ativan PRN Alcohol abuse: - IV Banana bag x1 in ED - Alcohol protocol Alcoholic cirrhosis- baseline INR of 1.2: - Follow PT/INR - Elevated LFTs- follow CMP GI Prophylaxis: Maalox PRN, IV Zofran PRN, Colace and/or Milk of Mag PRN DVT prophylaxis: GUIDO and SCDs, hold chemical therapy pending PT/INR Code Status: LEVEL I, FULL Total Time Spent: Greater than 30 minutes This includes examination of the patient, discharge planning, medication reconciliation, and communication with other providers. Discharge Instructions Please refer to the electronic Patient Visit Report (Discharge Instructions) for additional information. Additional Copies To Kevin Vera D.O.
[2016-06-28 15:20] VITALS: BP 100/68; PULSE 87; TEMP 36.7; O2SAT 94
[2016-06-28] MEDS: CEFTRIAXONE SOD INJ 1 GM in DEXTROSE 5% ADD-VANTAGE 50ML 50 ML IV SCH (18:48)
[2016-06-28 20:28] VITALS: BP 100/68; PULSE 87; TEMP 36.7; O2SAT 94
--- NOTE | 2016-07-02 13:05 | EDITING REQUIRED CODING QUERY ---
CODING QUERY Dear Dr. An, To promote full compliance with coding requirements relating to patient care, provider participation is requested in all cases of advertising dispatch clerks supervisor uncertainty. Please assist us with the question(s) below: Coding Question(s): UTI documented on a progress note but UTI is not documented on discharge summary. Please clarify below: Please place an "X" in all the parenthesis that apply. ( ) UTI Type of bacteria if known: ( ) Present on admission ( ) Not present on admission ( ) Unable to determine ( X ) UTI was ruled out ( ) Other: Please explain ( ) Unable to determine Documentation: Addendum: Maxime Jameson MD, PhD on 06/22/16 @ 15:35 Addendum Section pt has elevated tn, with V2 one lead ST elevated, d/w service delivery consultant welfare specialist, he feel do not need "heart alert" but agree to have asa, bb, and heparie drip. and agree to see her as a stat consult possible uti with leukocytosis, will start Rocephin I called to , updated her pt's condition, includes possible acute WA, he understands, Physician's Response(s): Thank you for your time. Minda Loyd, [facility] Principal Diagnosis: "_that condition established after study, to be chiefly responsible for occasioning the admission of the patient to the hospital for care." Co-Existing Principal Diagnosis: "_when two or more diagnoses equally meet the criteria for principal diagnosis as determined by the circumstances of admission, diagnostic work up, and/or therapy provided, and the Alphabetic Index, Tabular List, or another coding guideline does not provide sequencing direction, any one of the diagnoses may be sequenced first." "When the physician has documented what appears to be a current diagnosis in the body of the record, but has not included the diagnosis in the final diagnostic statement, the physician should be asked whether the diagnosis should be added." (Source Coding [facility] 2 QTR90. p3-4)
[2016-08-11] MEDS ORDERED: FNTTP50 TD (16:56)
[2016-08-13] MEDS ORDERED: CIPR-255 PO (10:05)
[2016-08-25] MEDS ORDERED: CYT100 PO (18:41)
[2016-08-25] MEDS ORDERED: MCRB100 PO (18:41)
[2016-08-25] MEDS ORDERED: FOLI1TAB7 PO (18:41)
[2016-08-25] MEDS ORDERED: HYDR2TAB3 PO (18:41)
[2016-08-25] MEDS ORDERED: THIA1TAB PO (18:41)
[2016-08-25] MEDS ORDERED: PRT40 PO (18:41)
[2016-08-25] MEDS ORDERED: CHOL2000 PO (18:49)
[2016-08-25] MEDS ORDERED: ERGO50002 PO (18:49)
== END 2016-06-28 21:30 | DRG 551 ==
LOC: ENRESERVDT → ENRESERVTM → EDBD 11:13 → C.EDA 11:14 → C.2E 16:04 → C.MS4W 06-25 10:48
PROVIDERS: ADMIT Hospitalist; ATTEND Hospitalist
DX: S22.059A Unspecified fracture of T5-T6 vertebra, initial encounter for closed fracture (principal); I21.4 Non-ST elevation (NSTEMI) myocardial infarction; M62.82 Rhabdomyolysis; S22.029A Unspecified fracture of second thoracic vertebra, initial encounter for closed fracture; W19.XXXA Unspecified fall, initial encounter; E86.0 Dehydration; R79.89 Other specified abnormal findings of blood chemistry; D72.829 Elevated white blood cell count, unspecified; G89.29 Other chronic pain; M54.9 Dorsalgia, unspecified; E87.6 Hypokalemia; F41.9 Anxiety disorder, unspecified; M81.0 Age-related osteoporosis without current pathological fracture; K21.9 Gastro-esophageal reflux disease without esophagitis; I45.81 Long QT syndrome; F10.10 Alcohol abuse, uncomplicated; I25.5 Ischemic cardiomyopathy; R94.5 Abnormal results of liver function studies; K70.30 Alcoholic cirrhosis of liver without ascites; G35 Multiple sclerosis; R15.9 Full incontinence of feces; Z96.642 Presence of left artificial hip joint; M79.7 Fibromyalgia; N80.9 Endometriosis, unspecified; Z93.1 Gastrostomy status; Z97.8 Presence of other specified devices; Z87.19 Personal history of other diseases of the digestive system; Z86.59 Personal history of other mental and behavioral disorders; Z87.891 Personal history of nicotine dependence; Z79.1 Long term (current) use of non-steroidal anti-inflammatories (NSAID); Z79.899 Other long term (current) drug therapy; Z98.84 Bariatric surgery status; Y92.009 Unspecified place in unspecified non-institutional (private) residence as the place of occurrence of the external cause; Z79.891 Long term (current) use of opiate analgesic

== ENCOUNTER 2016-08-11 21:54 | Inpatient (IN) | payer OTHER ==
[~2016-08-11] VITALS: Ht 165.1 cm; Wt 52.4 kg
[~2016-08-11 21:54] MED LIST changes: -DLD/2 PO; +FNTTP50 TD; -SULF800T23 PO
[2016-08-11] MEDS ORDERED: SODIUM CHLORIDE 0.9% 1000ML 1,000 ML IV STA (22:15)
[2016-08-11] MEDS ORDERED: SODIUM CHLORIDE 0.9% 500ML 500 ML IV STA (22:15)
[2016-08-11] MEDS ORDERED: ATR10 PO (22:50)
[2016-08-11] MEDS ORDERED: ATV/1 PO (22:50)
[2016-08-11] MEDS ORDERED: ONDA4TAB9 PO (22:50)
[2016-08-11] MEDS ORDERED: DLD/2 PO (22:50)
[2016-08-11] MEDS ORDERED: Pain Pump INJ (22:59)
[2016-08-11] MEDS ORDERED: NAPR1TAB9 PO (22:59)
[2016-08-11 23:26] LABS: URINE APPEARANCE CLEAR (CLEAR); URINE BILIRUBIN NEG (NEG); URINE COLOR DK YELLOW; URINE NITRITE POS (NEG); URINE PH 6.5 (4.5-7.5); UROBILINOGEN POS (NEG); ZZUR CULT IF INDIC CLEAN CATCH YES
[2016-08-11 23:34] LABS: MANUAL MICROSCOPIC REQUIRED? NO; REVIEW REQ? NO
[2016-08-11 23:44] LABS: BASO % 0.4 %; BASO ABS # 0.01 K/uL (0-0.2); EOS % 2.6 %; HEMATOCRIT 29.3 % (37-47); LYMPH % 41.1 %; LYMPH ABS # 1.09 K/uL (1.2-3.4); MEAN CELL VOLUME 77.7 fL (80-100); MEAN CORPUSCULAR HEMOGLOBIN 24.7 pg (25-34); MEAN CORPUSCULAR HGB CONC 31.7 g/dl (32-36); MEAN PLATELET VOLUME 8.9 fL (7.4-10.4); MONO % 9.4 %; NEUT % 46.5 %; PLATELET COUNT 110 K/uL (130-400); RED BLOOD COUNT 3.77 M/uL (4.2-5.4); WHITE BLOOD COUNT 2.65 K/uL (4.8-10.8)
[2016-08-11] MEDS ORDERED: CEFTRIAXONE SOD INJ 1 GM ADDVIAL IV STA (23:52)
[2016-08-11 23:55] LABS: INR 1.1 (0.9-1.1); PARTIAL THROMBOPLASTIN RATIO 0.9; PROTHROMBIN TIME (PATIENT) 11.8 SECONDS (9.0-12.0)
[2016-08-12] VITALS (7 sets, daily range): BP systolic 107–136; BP diastolic 69–94; PULSE 77–98; TEMP 36.6–36.8; O2SAT 96–99; Ht 165.1 cm; Wt 52.4 kg
[2016-08-12 00:01] LABS: ALT/SGPT 31 U/L (12-78); BLOOD UREA NITROGEN 11 mg/dl (7-18); BUN/CREATININE RATIO 23.1 (10-20); CALCIUM 8.3 mg/dl (8.5-10.1); CARBON DIOXIDE 25 mmol/L (21-32); CHLORIDE 108 mmol/L (98-107); CREATININE 0.48 mg/dl (0.60-1.20); GLUCOSE 90 mg/dl (70-99); MAGNESIUM 2.1 mg/dl (1.8-2.4); POTASSIUM 4.4 mmol/L (3.5-5.1); SODIUM 139 mmol/L (136-145)
[2016-08-12 00:11] LABS: ANISOCYTOSIS PRESENT; COMPLETE YES; OVALOCYTES 1+; SCHISTOCYTES OCCASIONAL
[2016-08-12 00:12] LABS: ALKALINE PHOSPHATASE 241 U/L (45-117); AST/SGOT 30 U/L (15-37); CKMB/CK RATIO 2.6 (0-3.0)
[2016-08-12] MEDS ORDERED: PROMETHAZINE HCL INJ 25 MG in SODIUM CHLORIDE 0.9% 50ML 50 ML IV PRN (01:45)
[2016-08-12] MEDS ORDERED: PAIN PUMP INJ SCH (01:45)
[2016-08-12] MEDS ORDERED: DiphenhydrAMINE HCL 50 MG/ML VIAL IV PRN ×2 (01:45)
[2016-08-12] MEDS ORDERED: ACETAMINOPHEN IV 100 ML IV PRN (01:45)
[2016-08-12] MEDS ORDERED: ONDANSETRON INJ 2 MG/ML 2 ML VIAL IV PRN (01:45)
[2016-08-12] MEDS ORDERED: MoRPHine SULFATE 4 MG/ML 1 ML CARP\\VIAL IV PRN (01:45)
[2016-08-12] MEDS ORDERED: LORAZEPAM 1 MG TAB PO PRN ×2 (01:45→15:45)
[2016-08-12] MEDS ORDERED: KETOROLAC TROMETHAMINE 15 MG/ML VIAL IV. PRN (02:00)
[2016-08-12] MEDS ORDERED: HYDROmorphone HCL 2 MG TAB PO PRN ×2 (02:00→12:00)
[2016-08-12] MEDS ORDERED: LORAZEPAM 1 MG TAB ONE (02:37)
[2016-08-12] MEDS ORDERED: PIPERACILL/TAZOBAC IV 3.375 GM in DEXTROSE 5% 100ML 100 ML IV ONE (03:00)
[2016-08-12] MEDS ORDERED: VANCOMYCIN INJ 1,000 MG in SODIUM CHLORIDE 0.9% 250ML 250 ML IV STA (03:00)
[2016-08-12] MEDS ORDERED: VANCOMYCIN CONSULT ACTIVE PRN (04:15)
[2016-08-12] MEDS ORDERED: PIPERACILL/TAZOBAC CONSULT ACTIVE PRN (04:15)
[2016-08-12] MEDS: FAMOTIDINE IV INJ 20 MG in DEXTROSE 5% 100ML 100 ML IV SCH ×2 (04:25→16:05)
[2016-08-12] MEDS: NSS + 20MEQ KCL 1000ML 1,000 ML IV SCH ×3 (04:25→20:45)
[2016-08-12] MEDS: MoRPHine SULFATE 2 MG/ML CARP IV PRN ×3 (04:25→16:06)
--- NOTE | 2016-08-12 04:58 | EMERGENCY ROOM VISIT NOTE ---
History First contact with patient: 22:11 Chief Complaint: ALTERED MENTAL STATUS Stated Complaint: ALTERED MENTAL STATE, UTI Nursing Triage Summary: Patient has trouble with high ammonia and son states she is starting to be confused again. In triage patient asking for another prescription for hydromorphone states she finished all her medication today, also states she is also being weaned off of Xanax. History of Present Illness The patient is a 51 year old female who presents to the Emergency Room with complaints of fatigue, confusion and left hip pain after increasing falls for the past few days. Family states she's been more confused lately. She has cirrhosis. She has MS. Patient denies chest pain, dyspnea, cough, congestion, abdominal pain, vomiting, diarrhea. Patient states she is tolerate by mouth fluids and food. No localized weakness or numbness. No vision problems. Review of Systems See HPI for pertinent positives & negatives. A total of 10 systems reviewed and were otherwise negative. Past Medical/Surgical History Medical Problems: (1) TYRONE (acute kidney injury) (2) Altered mental state (3) Anemia (4) Anxiety (5) Bacteremia (6) Chronic alcoholic liver disease (7) Chronic back pain (8) Endometriosis (9) Fall (10) Fibromyalgia (11) Fungemia (12) GERD (gastroesophageal reflux disease) (13) Hyperkalemia (14) Hypokalemia (15) Liver encephalopathy (16) Metabolic acidosis (17) Multiple Sclerosis (18) Pneumonia (19) Presence of intrathecal pump (20) Rhabdomyolysis (21) UTI (urinary tract infection) Surgical Problems: (1) H/O gastric bypass (2) H/O gastrostomy (3) H/O total hip arthroplasty (4) History of cholecystectomy (5) History of total hysterectomy Family History Cancer FHx: aneurysm FHx: stroke Social History Smoking Status: Never Smoker Alcohol Use: heavy Drug Use: none Marital Status: Housing Status: lives alone Occupation Status: unemployed Current/Historical Medications Scheduled Fentanyl (Duragesic), 50 MCG TD CQ72HR [Pain Pump], 1 EA INJ CONTINOUS Scheduled PRN Hydromorphone HCl (Hydromorphone HCl), 2 MG PO BID PRN for Pain Hydroxyzine HCl (Hydroxyzine HCl), 10 MG PO UD PRN for Anxiety Lorazepam (Ativan), 1 MG PO Q4H PRN for Anxiety Naproxen (Aleve), 220 MG PO UD PRN for Pain Ondansetron (Ondansetron HCl), 4 MG PO Q6H PRN for Nausea Allergies Coded Allergies: Clarithromycin (Verified Allergy, Intermediate, HIVES, 06/22/16) Aspirin (Verified Allergy, Mild, 06/22/16) Tramadol (Verified Allergy, Mild, 06/22/16) Oxaprozin (Verified Allergy, Unknown, 06/22/16) Physical Exam Vital Signs Date Time Temp Pulse Resp B/P (MAP) Pulse Ox O2 Delivery O2 Flow Rate FiO2 08/12/16 01:02 94 18 115/68 99 Room Air 08/11/16 22:19 Room Air 08/11/16 22:00 36.7 107 16 109/65 98 Room Air Physical Exam VITALS: Vitals are noted on the nurse's note and reviewed by myself. Vital signs stable. GENERAL: Pleasant female able to answer questions appropriately, in no acute distress, nondiaphoretic, well-developed well-nourished. SKIN: The skin was without rashes, erythema, edema, or bruising. There is no tenting of the skin. Capillary reflex less than 2 seconds. HEAD: Normocephalic atraumatic. EARS: External auditory canals clear, tympanic membranes pearly salas without erythema or effusion bilaterally. EYES: Pupils equal round and reactive to light and accommodation. Conjunctivae without injection, sclerae without icterus. Extraocular movements intact. NOSE: Patent, turbinates without inflammation or discharge. No sinus tenderness. MOUTH: Mucous membranes mildly dry. Pharynx without erythema or exudate. Uvula midline. Airway patent. Tongue does not deviate. NECK: Supple without nuchal rigidity. No lymphadenopathy. No thyromegaly. Cervical spine is nontender. No JVD. HEART: Regular rate and rhythm LUNGS: Clear to auscultation bilaterally without wheezes, rales or rhonchi. No dullness to percussion. No retractions or accessory muscle use. ABDOMEN: Positive bowel sounds x 4. Normal tympanic percussion. Soft, nontender, without masses or organomegaly. Bills sign negative. No guarding or rebound tenderness. MUSCULOSKELETAL: No muscle atrophy, erythema, or edema noted. Left hip tender to palpation. Pelvis stable. No thoracic or lumbar tenderness on exam. NEURO: Patient was alert and oriented to person place and time. Normal sensation to light and sharp touch. No focal neurological deficits. Medical Decision & Procedures Laboratory Results 08/11/16 23:33 Red Blood Count 3.77, Mean Corpuscular Volume 77.7, Mean Corpuscular Hemoglobin 24.7, Mean Corpuscular Hemoglobin Concent 31.7, Mean Platelet Volume 8.9, Neutrophils (%) (Auto) 46.5, Lymphocytes (%) (Auto) 41.1, Monocytes (%) (Auto) 9.4, Eosinophils (%) (Auto) 2.6, Basophils (%) (Auto) 0.4, Neutrophils # (Auto) 1.23, Lymphocytes # (Auto) 1.09, Monocytes # (Auto) 0.25, Eosinophils # (Auto) 0.07, Basophils # (Auto) 0.01 08/11/16 23:33 Test 08/11/16 23:00 08/11/16 23:33 08/11/16 23:44 08/12/16 00:20 Urine Color DK YELLOW Urine Appearance CLEAR (CLEAR) Urine pH 6.5 (4.5-7.5) Urine Specific [place] 1.020 (1.000-1.030) Urine Protein NEG (NEG) Urine Glucose (UA) NEG (NEG) Urine Ketones NEG (NEG) Urine Occult Blood NEG (NEG) Urine Nitrite POS (NEG) Urine Bilirubin NEG (NEG) Urine Urobilinogen POS (NEG) Urine Leukocyte Esterase MODERATE (NEG) Urine WBC (Auto) >30 /hpf (0-5) Urine RBC (Auto) 0-4 /hpf (0-4) Urine Hyaline Casts (Auto) 5-10 /lpf (0-5) Urine Epithelial Cells (Auto) 5-10 /lpf (0-5) Urine Bacteria (Auto) 4+ (NEG) White Blood Count 2.65 K/uL (4.8-10.8) Red Blood Count 3.77 M/uL (4.2-5.4) Hemoglobin 9.3 g/dL (12.0-16.0) Hematocrit 29.3 % (37-47) Mean Corpuscular Volume 77.7 fL (80-100) Mean Corpuscular Hemoglobin 24.7 pg (25-34) Mean Corpuscular Hemoglobin Concent 31.7 g/dl (32-36) Platelet Count 110 K/uL (130-400) Mean Platelet Volume 8.9 fL (7.4-10.4) Neutrophils (%) (Auto) 46.5 % Lymphocytes (%) (Auto) 41.1 % Monocytes (%) (Auto) 9.4 % Eosinophils (%) (Auto) 2.6 % Basophils (%) (Auto) 0.4 % Neutrophils # (Auto) 1.23 K/uL (1.4-6.5) Lymphocytes # (Auto) 1.09 K/uL (1.2-3.4) Monocytes # (Auto) 0.25 K/uL (0.11-0.59) Eosinophils # (Auto) 0.07 K/uL (0-0.5) Basophils # (Auto) 0.01 K/uL (0-0.2) RDW Standard Deviation 62.2 fL (36.4-46.3) RDW Coefficient of Variation 21.5 % (11.5-14.5) Immature Granulocyte % (Auto) 0.0 % Immature Granulocyte # (Auto) 0.00 K/uL (0.00-0.02) Anisocytosis PRESENT Ovalocytes 1+ Schistocytes OCCASIONAL Prothrombin Time 11.8 SECONDS (9.0-12.0) Prothromb Time International Ratio 1.1 (0.9-1.1) Activated Partial Thromboplast Time 23.5 SECONDS (21.0-31.0) Partial Thromboplastin Ratio 0.9 Anion Gap 6.0 mmol/L (3-11) Est Creatinine Clear Calc Drug Dose 99.6 ml/min Estimated GFR () 130.7 Estimated GFR (Non- 112.8 BUN/Creatinine Ratio 23.1 (10-20) Calcium Level 8.3 mg/dl (8.5-10.1) Magnesium Level 2.1 mg/dl (1.8-2.4) Total Bilirubin 0.5 mg/dl (0.2-1) Direct Bilirubin 0.2 mg/dl (0-0.2) Aspartate Amino Transf (AST/SGOT) 30 U/L (15-37) Alanine Aminotransferase (ALT/SGPT) 31 U/L (12-78) Alkaline Phosphatase 241 U/L (45-117) Ammonia 19.0 umol/L (11-32) Total Creatine Kinase 47 U/L (26-192) Creatine Kinase MB 1.2 ng/ml (0.5-3.6) Creatine Kinase MB Ratio 2.6 (0-3.0) Troponin I < 0.015 ng/ml (0-0.045) Total Protein 6.3 gm/dl (6.4-8.2) Albumin 3.3 gm/dl (3.4-5.0) Thyroid Stimulating Hormone (TSH) 3.240 uIu/ml (0.300-4.500) Bedside Troponin I < 0.030 ng/ml (0-0.045) Bedside Lactic Acid Venous 0.69 mmol/L (0.90-1.70) Medications Administered Medications (Trade) Dose Ordered Sig/Flori Route Start Time Stop Time Status Last Admin Dose Admin Sodium Chloride 500 ml @ 999 mls/hr Q31M STAT IV 08/11/16 22:15 08/11/16 22:45 DC 08/11/16 22:15 999 MLS/HR Sodium Chloride 1,000 ml @ 125 mls/hr Q8H STAT IV 08/11/16 22:15 08/12/16 06:14 08/11/16 22:15 125 MLS/HR Ceftriaxone Sodium (Rocephin Inj) 1 gm NOW STAT IV 08/11/16 23:52 08/11/16 23:56 DC 08/11/16 23:52 1 GM Potassium Chloride/Sodium Chloride 1,000 ml @ 100 mls/hr Q10H IV 08/12/16 01:40 09/11/16 01:39 08/12/16 04:25 100 MLS/HR Morphine Sulfate (MoRPHine SULFATE INJ) 2 mg Q2H PRN IV 08/12/16 01:45 08/26/16 01:44 08/12/16 04:25 2 MG ED Course Prior records/ancillary studies reviewed and summarized above. Nursing notes reviewed. Additional history obtained from family. The patient's history was concerning for increasing confusion, weakness and falls. Differential diagnosis: Etiologies such as metabolic, infection, hypo/hyperglycemia, electrolyte abnormalities, cardiac sources, intracerebral event, toxicologic, neurologic, as well as others were entertained. Physical examination: As above. ER treatment provided: IV Lock Rocephin, IV fluids On reassessment the patient felt better. Diagnostics interpretation by me: ECG: Normal sinus, normal intervals, left axis deviation, Q wave in lead 1, no acute ST-T wave change, rate of 96. Impression sinus rhythm with a left axis deviation interpreted by myself. The labs revealed urine concerning for infection sent for culture. Chronic anemia Imaging studies: Head CT negative per radiology Pelvis left hip x-ray with no acute fracture or hardware present and chest x- ray with no acute consolidation, pneumothorax or free air per my interpretation Consultation: A consultation was placed with the hospitalist, Dr. Mullins. The case was discussed and diagnostics were reviewed. The patient was evaluated in the ER for further treatment. Exam and history seem consistent with confusion and UTI who has MS. Patient will be evaluated by medicine for possible admission. She was started on antibiotics. Blood cultures pending. Negative lactic acid.By the evaluation outlined above emergent etiologies such as electrolyte abnormalities, cardiac sources, intracerebral event, toxologic, neurologic, abnormalities blood glucose , metabolic, as well as others were deemed relatively unlikely. The pt informed about the findings as listed above. All questions were answered and pleased with the treatment. Case reviewed with my attending Medical Decision As above Impression Primary Impression: Urinary tract infection Additional Impressions: UTI (urinary tract infection) Confusion Departure Information Dispostion Still a Patient Condition FAIR Referrals Kevin Vera D.O. (PCP) Forms HOME CARE DOCUMENTATION FORM, IMPORTANT VISIT INFORMATION Patient Instructions My [facility] Problem Qualifiers
[2016-08-12] MEDS ORDERED: FENTANYL PATCH REMOVE & WASTE SCH (04:59)
[2016-08-12] MEDS ORDERED: FENTANYL 50 MCG/HR TDSY TD SCH (05:00)
--- NOTE | 2016-08-12 06:19 | History and Physical ---
History & Physical Date & Time of Service: Aug 12, 2016 at 06:08 Chief Complaint: Altered Mental State, Uti Primary Care Physician: Kevin Vera D.O. History of Present Illness Source: patient The patient is a 51-year-old female who presents emergency department with complaint of fatigue, generalized weakness, confusion and left hip pain after falling over the past few days. She has noticed some increased difficulty with urination over the past few days, but denies any other signs of illness such as cough, congestion, shortness of breath, abdominal discomfort, vomiting, diarrhea , constipation. She does report generalized musculoskeletal discomfort. Past Medical/Surgical History Medical Problems: (1) Anxiety Status: Chronic (2) Chronic back pain Status: Chronic (3) Endometriosis Status: Chronic (4) Fibromyalgia Status: Chronic (5) GERD (gastroesophageal reflux disease) Status: Chronic (6) Multiple Sclerosis Status: Chronic Surgical Problems: (1) H/O gastric bypass Permanent Comment: 2000 Status: Resolved (2) H/O gastrostomy Permanent Comment: 10/26/14 Status: Resolved (3) H/O total hip arthroplasty Permanent Comment: ; 2012 Status: Resolved (4) History of cholecystectomy Permanent Comment: 10/26/14 Status: Resolved (5) History of total hysterectomy Permanent Comment: 1994 Status: Resolved Family History Cancer FHx: aneurysm FHx: stroke Social History Smoking Status: Never Smoker Smokeless Tobacco Use: No Alcohol Use: none Drug Use: none Marital Status: Housing status: lives with family, fpc Occupational Status: unemployed Immunizations History of Influenza Vaccine: Unknown History of Tetanus Vaccine?: Unknown History of Pneumococcal: Unknown History of Hepatitis B Vaccine: Unknown Multi-Drug Resistant Organisms History of MDRO: No Allergies Coded Allergies: Clarithromycin (Verified Allergy, Intermediate, HIVES, 06/22/16) Aspirin (Verified Allergy, Mild, 06/22/16) Tramadol (Verified Allergy, Mild, 06/22/16) Oxaprozin (Verified Allergy, Unknown, 06/22/16) Home Medications Scheduled Fentanyl (Duragesic), 50 MCG TD CQ72HR [Pain Pump], 1 EA INJ CONTINOUS Scheduled PRN Hydromorphone HCl (Hydromorphone HCl), 2 MG PO BID PRN for Pain Hydroxyzine HCl (Hydroxyzine HCl), 10 MG PO UD PRN for Anxiety Lorazepam (Ativan), 1 MG PO Q4H PRN for Anxiety Naproxen (Aleve), 220 MG PO UD PRN for Pain Ondansetron (Ondansetron HCl), 4 MG PO Q6H PRN for Nausea Review of Systems The patient denies palpitations, shortness of breath, cough, lower extremity swelling, vsore throat, fevers, chills, vomiting, blood in urine or stool, lightheadedness, dizziness, memory loss, rash, abnormal bruising or bleeding, imbalance, focal weakness, numbness or tingling in arms or legs, night sweats. The review of systems is otherwise negative other than for that already noted above, and at least 10 systems have been reviewed. Physical Exam Vital Signs Date Time Temp Pulse Resp B/P (MAP) Pulse Ox O2 Delivery O2 Flow Rate FiO2 08/12/16 02:30 36.6 91 16 120/78 (92) 99 Room Air 08/12/16 02:30 99 Room Air 08/12/16 01:02 94 18 115/68 99 Room Air 08/11/16 22:19 Room Air 08/11/16 22:00 36.7 107 16 109/65 98 Room Air The patient is awake, alert and oriented 3, looks chronically ill, normocephalic and atraumatic, lying in bed and in no acute distress. HEENT--PERRL, EOMI, mucous membranes and oropharynx dry. Neck--supple, no JVD or bruits, thyroid normal, trachea midline, no adenopathy. Heart--normal S1 and S2, no extra beats, no murmurs, rubs or gallops. Lungs--clear bilaterally but diminished throughout, no respiratory distress, no accessory muscle use. Abdomen--normal bowel sounds and soft, nontender and nondistended, no hernias or masses, no organomegaly. Extremities--no cyanosis, clubbing or edema. There are good distal pulses b/l. Dermatologic--normal skin turgor, normal color, warm and dry, no abnormal lymph nodes, no rash. Neurologic--cranial nerves II through XII grossly intact. Rheumatologic--generalized myalgias on exam. Psychiatric--normal affect. Diagnostics Laboratory Results Results Past 24 Hours Test 08/11/16 23:00 08/11/16 23:33 08/11/16 23:44 08/12/16 00:20 Range/Units Urine Color DK YELLOW Urine Appearance CLEAR CLEAR Urine pH 6.5 4.5-7.5 Urine Specific [place] 1.020 1.000-1.030 Urine Protein NEG NEG Urine Glucose (UA) NEG NEG Urine Ketones NEG NEG Urine Occult Blood NEG NEG Urine Nitrite POS NEG Urine Bilirubin NEG NEG Urine Urobilinogen POS NEG Urine Leukocyte Esterase MODERATE NEG Urine WBC (Auto) >30 0-5 /hpf Urine RBC (Auto) 0-4 0-4 /hpf Urine Hyaline Casts (Auto) 5-10 0-5 /lpf Urine Epithelial Cells (Auto) 5-10 0-5 /lpf Urine Bacteria (Auto) 4+ NEG White Blood Count 2.65 4.8-10.8 K/uL Red Blood Count 3.77 4.2-5.4 M/uL Hemoglobin 9.3 12.0-16.0 g/dL Hematocrit 29.3 37-47 % Mean Corpuscular Volume 77.7 80-100 fL Mean Corpuscular Hemoglobin 24.7 25-34 pg Mean Corpuscular Hemoglobin Concent 31.7 32-36 g/dl Platelet Count 110 130-400 K/uL Mean Platelet Volume 8.9 7.4-10.4 fL Neutrophils (%) (Auto) 46.5 % Lymphocytes (%) (Auto) 41.1 % Monocytes (%) (Auto) 9.4 % Eosinophils (%) (Auto) 2.6 % Basophils (%) (Auto) 0.4 % Neutrophils # (Auto) 1.23 1.4-6.5 K/uL Lymphocytes # (Auto) 1.09 1.2-3.4 K/uL Monocytes # (Auto) 0.25 0.11-0.59 K/uL Eosinophils # (Auto) 0.07 0-0.5 K/uL Basophils # (Auto) 0.01 0-0.2 K/uL RDW Standard Deviation 62.2 36.4-46.3 fL RDW Coefficient of Variation 21.5 11.5-14.5 % Immature Granulocyte % (Auto) 0.0 % Immature Granulocyte # (Auto) 0.00 0.00-0.02 K/uL Anisocytosis PRESENT Ovalocytes 1+ Schistocytes OCCASIONAL Prothrombin Time 11.8 9.0-12.0 SECONDS Prothromb Time International Ratio 1.1 0.9-1.1 Activated Partial Thromboplast Time 23.5 21.0-31.0 SECONDS Partial Thromboplastin Ratio 0.9 Sodium Level 139 136-145 mmol/L Potassium Level 4.4 3.5-5.1 mmol/L Chloride Level 108 98-107 mmol/L Carbon Dioxide Level 25 21-32 mmol/L Anion Gap 6.0 3-11 mmol/L Blood Urea Nitrogen 11 7-18 mg/dl Creatinine 0.48 0.60-1.20 mg/dl Est Creatinine Clear Calc Drug Dose 99.6 ml/min Estimated GFR () 130.7 Estimated GFR (Non- 112.8 BUN/Creatinine Ratio 23.1 10-20 Random Glucose 90 70-99 mg/dl Calcium Level 8.3 8.5-10.1 mg/dl Magnesium Level 2.1 1.8-2.4 mg/dl Total Bilirubin 0.5 0.2-1 mg/dl Direct Bilirubin 0.2 0-0.2 mg/dl Aspartate Amino Transf (AST/SGOT) 30 15-37 U/L Alanine Aminotransferase (ALT/SGPT) 31 12-78 U/L Alkaline Phosphatase 241 45-117 U/L Ammonia 19.0 11-32 umol/L Total Creatine Kinase 47 26-192 U/L Creatine Kinase MB 1.2 0.5-3.6 ng/ml Creatine Kinase MB Ratio 2.6 0-3.0 Troponin I < 0.015 0-0.045 ng/ml Total Protein 6.3 6.4-8.2 gm/dl Albumin 3.3 3.4-5.0 gm/dl Thyroid Stimulating Hormone (TSH) 3.240 0.300-4.500 uIu/ml Bedside Troponin I < 0.030 0-0.045 ng/ml Bedside Lactic Acid Venous 0.69 0.90-1.70 mmol/L Microbiology Results 08/11/16 Urine Culture, Received Pending Impression Assessment and Plan UTI/dehydration--likely the cause of her generalized symptoms of fatigue, weakness and confusion. She'll be placed on vancomycin IV and Zosyn IV due to her history of previous long-term stay in nursing facility, and frequent infections and likely resistant organisms. We'll hydrate and IV fluids, and follow urine culture and sensitivities. Chronic pain syndrome--continue fentanyl patch and indwelling pain pump, and adjust her oral hydromorphone from 2 mg by mouth twice a day when necessary to 4 mg by mouth 4 times a day when necessary. Anxiety--continue lorazepam 1 mg by mouth every 4 hours when necessary and hydroxyzine with change in 10 mg by mouth daily when necessary to 4 times a day when necessary. Multiple sclerosis--I no active medications at this time. Pancytopenia--WBC 2.65 with borderline ANC 1.23, hemoglobin 9.3, and platelets 110. She's had a workup in the past, and likely will get a diagnosis of myelodysplastic syndrome. Left hip ORIF--underwent surgery last month. Would likely benefit from PT and OT consult. Level of Care Med/Surg Advanced Directives Existing Advance Directive: No Existing Living Will: No Existing Power of [employer] Site Manager: No Resuscitation Status FULL RESUSCITATION VTE Prophylaxis VTE Risk Assessment Done? Y/N: Yes Risk Level: Moderate Given or contraindicated: SCD's
--- NOTE | 2016-08-12 06:54 | DIAGNOSTIC IMAGING REPORT ---
CHEST ONE VIEW PORTABLE CLINICAL HISTORY: AMS mental status change COMPARISON STUDY: 06/22/2016 FINDINGS: The bones soft tissues and hemidiaphragms are normal. The cardiomediastinal silhouette is normal. The lungs are clear. The pulmonary vasculature is normal. IMPRESSION: Negative chest. Electronically signed by: Mj Smith M.D. 08/12/2016 6:53 AM Dictated Date/Time: 08/12/2016 6:53 AM
--- NOTE | 2016-08-12 07:21 | DIAGNOSTIC IMAGING REPORT ---
HEAD CT NONCONTRAST CT DOSE: 537.48 mGy.cm HISTORY: Mental status change confusion TECHNIQUE: Multiaxial CT images of the head were performed without the use of intravenous contrast. Comparison: 06/22/2016 Findings: The paranasal sinuses and mastoid air cells are clear. The calvarium and skull base are intact. The ventricles and sulci are within normal limits. There is no mass, hematoma, midline shift, or acute infarct. Impression: No acute intracranial abnormality. Electronically signed by: Mj Smith M.D. 08/12/2016 7:20 AM Dictated Date/Time: 08/12/2016 7:19 AM
--- NOTE | 2016-08-12 08:07 | DIAGNOSTIC IMAGING REPORT ---
SINGLE VIEW PELVIS; 2 LEFT HIP CLINICAL HISTORY: Left hip/groin pain. FINDINGS: An AP pelvic radiographs with AP and frog-leg views of the left hip are compared to study dated 05/11/2016. The skeletal structures are osteopenic. There is chronic posttraumatic deformity of the left hip. Intertrochanteric and intramedullary nails are in place. The orthopedic hardware appear intact. There chronic left pubic ring fractures are again noted no acute fracture is identified. The remainder the bony pelvis and the proximal femora are preserved. Mild to moderate arthritic change is seen in the hips. Mild sclerosis is noted in the sacroiliac joints. Mild soft tissue swelling is noted in the left upper thigh. There is a nonobstructed abdominal bowel gas pattern. An electronic device projects over the right lower quadrant of the abdomen. IMPRESSION: 1. Mild soft tissue swelling is noted in the left thigh. No acute fracture seen involving the hips or bony pelvis. 2. Chronic left pubic ring fractures are again noted. 3. There is chronic posttraumatic deformity and postoperative change in the left proximal femur. 4. Osteopenia and degenerative change as above. Electronically signed by: Herbie Reese M.D. 08/12/2016 8:06 AM Dictated Date/Time: 08/12/2016 8:04 AM
[2016-08-12] MEDS: CHECK FENTANYL PATCH PLACEMENT SCH ×2 (08:09→16:09)
[2016-08-12] MEDS ORDERED: IRON SUCROSE INJ 300 MG in SODIUM CHLORIDE 0.9% 250ML 250 ML IV SCH (10:00)
--- NOTE | 2016-08-12 10:18 | Family Medicine Progress Note ---
Progress Note Date of Service Aug 12, 2016. Subjective Pt evaluation today including: conversation w/ patient, physical exam, chart review, lab review, review of studies Pain: 05/24 PO Intake: WNL Voiding: no voiding problems Patient still states that she has generalized weakness however there is a "10%" in overall improvement. She states that she is having right knee arthritis pain which her pain pump is not improving. She does live at home alone. She has received iron infusions in the past Constitutional: No fever Eyes: No worsening of vision ENT: No hearing loss Respiratory: No cough, No sputum, No wheezing, No shortness of breath, No dyspnea on exertion Cardiovascular: No chest pain Abdomen: No pain, No nausea, No vomiting, No diarrhea, No constipation Musculoskeletal: + see HPI, + joint pain, + muscle pain Female : No dysuria, No hematuria Neurologic: + weakness, + balance problems Psychiatric: No depression symptoms Heme: No abnormal bleeding/bruising Endo: + fatigue Skin: No rash Medications Medications Administered Medications (Trade) Dose Ordered Sig/Flori Route Start Time Stop Time Status Last Admin Dose Admin Sodium Chloride 500 ml @ 999 mls/hr Q31M STAT IV 08/11/16 22:15 08/11/16 22:45 DC 08/11/16 22:15 999 MLS/HR Sodium Chloride 1,000 ml @ 125 mls/hr Q8H STAT IV 08/11/16 22:15 08/12/16 06:14 DC 08/11/16 22:15 125 MLS/HR Ceftriaxone Sodium (Rocephin Inj) 1 gm NOW STAT IV 08/11/16 23:52 08/11/16 23:56 DC 08/11/16 23:52 1 GM Vancomycin HCl 1000 mg/Sodium Chloride 270 ml @ 125 mls/hr NOW STAT IV 08/12/16 03:00 08/12/16 05:09 DC 08/12/16 04:45 125 MLS/HR Potassium Chloride/Sodium Chloride 1,000 ml @ 100 mls/hr Q10H IV 08/12/16 01:40 09/11/16 01:39 08/12/16 04:25 100 MLS/HR Morphine Sulfate (MoRPHine SULFATE INJ) 2 mg Q2H PRN IV 08/12/16 01:45 08/26/16 01:44 08/12/16 04:25 2 MG Famotidine 20 mg/ Dextrose 102 ml @ 200 mls/hr Q12H IV 08/12/16 04:00 09/11/16 03:59 08/12/16 04:25 200 MLS/HR Lorazepam (Ativan Tab) 1 mg STK-MED ONCE .ROUTE 08/12/16 02:37 08/12/16 02:38 DC 08/12/16 04:07 1 MG Piperacillin Sod/ Tazobactam Sod 3.375 gm/Dextrose 115 ml @ 200 mls/hr ONE ONCE IV 08/12/16 03:00 08/12/16 04:15 DC 08/12/16 04:45 200 MLS/HR Miscellaneous Information (Check Fentanyl Patch Placement) 1 ea QS N/A 08/12/16 08:00 09/11/16 07:59 08/12/16 08:09 1 EA Fentanyl (Duragesic Patch) 50 mcg Q72H TD 08/12/16 05:00 08/26/16 04:59 08/12/16 04:48 50 MCG Objective Vital Signs Date Time Temp Pulse Resp B/P (MAP) Pulse Ox O2 Delivery O2 Flow Rate FiO2 08/12/16 09:41 85 120/76 (91) 99 Room Air 95 121/80 (94) 98 107/69 (82) 08/12/16 09:20 Room Air 08/12/16 07:26 36.7 87 18 108/71 (83) 99 Room Air 08/12/16 02:30 36.6 91 16 120/78 (92) 99 Room Air 08/12/16 02:30 99 Room Air 08/12/16 01:02 94 18 115/68 99 Room Air 08/11/16 22:19 Room Air 08/11/16 22:00 36.7 107 16 109/65 98 Room Air Physical Exam General Appearance: no apparent distress Eyes: normal inspection ENT: normal ENT inspection Neck: supple Respiratory/Chest: normal breath sounds, no respiratory distress, no accessory muscle use Cardiovascular: regular rate, rhythm, no murmur Abdomen: normal bowel sounds, non tender, soft Extremities: normal range of motion, non-tender, normal inspection, no pedal edema, no calf tenderness Neurologic/Psychiatric: alert, oriented x 3, + depressed affect Skin: normal color, warm/dry, no rash Lymphatic: no adenopathy Laboratory Results Results Past 24 Hours Test 08/11/16 23:00 08/11/16 23:33 08/11/16 23:44 08/12/16 00:20 Range/Units Urine Color DK YELLOW Urine Appearance CLEAR CLEAR Urine pH 6.5 4.5-7.5 Urine Specific [place] 1.020 1.000-1.030 Urine Protein NEG NEG Urine Glucose (UA) NEG NEG Urine Ketones NEG NEG Urine Occult Blood NEG NEG Urine Nitrite POS NEG Urine Bilirubin NEG NEG Urine Urobilinogen POS NEG Urine Leukocyte Esterase MODERATE NEG Urine WBC (Auto) >30 0-5 /hpf Urine RBC (Auto) 0-4 0-4 /hpf Urine Hyaline Casts (Auto) 5-10 0-5 /lpf Urine Epithelial Cells (Auto) 5-10 0-5 /lpf Urine Bacteria (Auto) 4+ NEG White Blood Count 2.65 4.8-10.8 K/uL Red Blood Count 3.77 4.2-5.4 M/uL Hemoglobin 9.3 12.0-16.0 g/dL Hematocrit 29.3 37-47 % Mean Corpuscular Volume 77.7 80-100 fL Mean Corpuscular Hemoglobin 24.7 25-34 pg Mean Corpuscular Hemoglobin Concent 31.7 32-36 g/dl Platelet Count 110 130-400 K/uL Mean Platelet Volume 8.9 7.4-10.4 fL Neutrophils (%) (Auto) 46.5 % Lymphocytes (%) (Auto) 41.1 % Monocytes (%) (Auto) 9.4 % Eosinophils (%) (Auto) 2.6 % Basophils (%) (Auto) 0.4 % Neutrophils # (Auto) 1.23 1.4-6.5 K/uL Lymphocytes # (Auto) 1.09 1.2-3.4 K/uL Monocytes # (Auto) 0.25 0.11-0.59 K/uL Eosinophils # (Auto) 0.07 0-0.5 K/uL Basophils # (Auto) 0.01 0-0.2 K/uL RDW Standard Deviation 62.2 36.4-46.3 fL RDW Coefficient of Variation 21.5 11.5-14.5 % Immature Granulocyte % (Auto) 0.0 % Immature Granulocyte # (Auto) 0.00 0.00-0.02 K/uL Anisocytosis PRESENT Ovalocytes 1+ Schistocytes OCCASIONAL Prothrombin Time 11.8 9.0-12.0 SECONDS Prothromb Time International Ratio 1.1 0.9-1.1 Activated Partial Thromboplast Time 23.5 21.0-31.0 SECONDS Partial Thromboplastin Ratio 0.9 Sodium Level 139 136-145 mmol/L Potassium Level 4.4 3.5-5.1 mmol/L Chloride Level 108 98-107 mmol/L Carbon Dioxide Level 25 21-32 mmol/L Anion Gap 6.0 3-11 mmol/L Blood Urea Nitrogen 11 7-18 mg/dl Creatinine 0.48 0.60-1.20 mg/dl Est Creatinine Clear Calc Drug Dose 99.6 ml/min Estimated GFR () 130.7 Estimated GFR (Non- 112.8 BUN/Creatinine Ratio 23.1 10-20 Random Glucose 90 70-99 mg/dl Calcium Level 8.3 8.5-10.1 mg/dl Magnesium Level 2.1 1.8-2.4 mg/dl Total Bilirubin 0.5 0.2-1 mg/dl Direct Bilirubin 0.2 0-0.2 mg/dl Aspartate Amino Transf (AST/SGOT) 30 15-37 U/L Alanine Aminotransferase (ALT/SGPT) 31 12-78 U/L Alkaline Phosphatase 241 45-117 U/L Ammonia 19.0 11-32 umol/L Total Creatine Kinase 47 26-192 U/L Creatine Kinase MB 1.2 0.5-3.6 ng/ml Creatine Kinase MB Ratio 2.6 0-3.0 Troponin I < 0.015 0-0.045 ng/ml Total Protein 6.3 6.4-8.2 gm/dl Albumin 3.3 3.4-5.0 gm/dl Thyroid Stimulating Hormone (TSH) 3.240 0.300-4.500 uIu/ml Bedside Troponin I < 0.030 0-0.045 ng/ml Bedside Lactic Acid Venous 0.69 0.90-1.70 mmol/L Test 08/12/16 08:46 08/12/16 09:51 Range/Units Transferrin % Saturation 15-50 % Microbiology Results 08/11/16 Urine Culture, Received Pending Assessment and Plan This is a 51 yo f here for dehydration and UTI that has a history of chronic pain syndrome and has an indwelling pain pump. 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 as outpatient Anxiety - Lorazepam q6h prn from q4h as this is the patient's PDMP dose - Vistaril 10 mg qid prn Chronic pain syndrome - indwelling pain pump noted - continue fentanyl patch - will change dilaudid to her PDMP dose which is 2 mg qid prn - PDMP was reviewed and no concerns however patient was just recently given rx for both her Dilaudid and fentanyl as well as her lorazepam Multiple Sclerosis - no active medications currently Left Hip ORIF - PT/ OT DVT Prophylaxis SCD and heparin bid ( BL hgb 9-10) Continued [facility] stay due to: ambulation difficulties Discharge planning: uncertain Reviewed: Pt Seen/Exam by Me History feeling exhausted. c/o left leg pain and pain across the back. Constitutional: denies: fever Respiratory: negative: short of breath Cardiovascular: denies chest pain General Appearance: mild distress Respiratory: lungs clear, no respiratory distress Cardiovascular: regular rate, rhythm Gastrointestinal: normal bowel sounds, non tender, soft Neurologic/Psychiatric: alert, oriented x 3 Skin Characteristics: pallor Assessment/Plan Resident Physician Supervision Note: I was present with Dr. Gutierrez in bedside. I verified the riley history and physical, reviewed labs and image studies, discussed the case with the resident and agree with the findings and care plan.
[2016-08-12 10:28] LABS: FERRITIN 10.3 ng/ml (8.0-388.0)
[2016-08-12] MEDS: PIPERACILL/TAZOBAC IV 3.375 GM in DEXTROSE 5% 100ML 100 ML IV SCH ×2 (10:49→18:44)
[2016-08-12] MEDS ORDERED: VANCOMYCIN INJ 800 MG in SODIUM CHLORIDE 0.9% 250ML 250 ML IV SCH (18:00)
[2016-08-12] MEDS: POLYETHYLENE (MIRALAX) 17 GM PACK PO SCH (19:46)
[2016-08-12] MEDS: hydrOXYzine HCL 10 MG TAB PO PRN (20:45)
[2016-08-12] MEDS: HEPARIN SOD 5000 UNIT/0.5 ML CARP SQ SCH (20:48)
[2016-08-13] MEDS: CHECK FENTANYL PATCH PLACEMENT SCH ×2 (02:05→07:50)
[2016-08-13] MEDS: PIPERACILL/TAZOBAC IV 3.375 GM in DEXTROSE 5% 100ML 100 ML IV SCH ×2 (02:05→10:10)
[2016-08-13] MEDS: FAMOTIDINE IV INJ 20 MG in DEXTROSE 5% 100ML 100 ML IV SCH (03:51)
[2016-08-13 07:19] VITALS: BP 98/66; PULSE 87; TEMP 36.6; O2SAT 98
[2016-08-13 07:31] LABS: MEAN CORPUSCULAR HGB CONC 31.7 g/dl (32-36)
[2016-08-13 07:39] LABS: HEMATOCRIT 27.8 % (37-47); MEAN CELL VOLUME 77.4 fL (80-100); MEAN CORPUSCULAR HEMOGLOBIN 24.5 pg (25-34); RED BLOOD COUNT 3.59 M/uL (4.2-5.4)
[2016-08-13] MEDS: NSS + 20MEQ KCL 1000ML 1,000 ML IV SCH (07:49)
[2016-08-13] MEDS: POLYETHYLENE (MIRALAX) 17 GM PACK PO SCH (07:52)
[2016-08-13] MEDS: HEPARIN SOD 5000 UNIT/0.5 ML CARP SQ SCH (07:52)
[2016-08-13] MEDS ORDERED: CHOLECALCIFEROL 1000 INTER.UNIT TAB PO SCH (08:00)
[2016-08-13 08:05] LABS: BUN/CREATININE RATIO 12.1 (10-20); CALCIUM 8.3 mg/dl (8.5-10.1); CREATININE 0.47 mg/dl (0.60-1.20)
[2016-08-13 08:16] LABS: ANISOCYTOSIS PRESENT; BASO % 0.5 %; BASO ABS # 0.01 K/uL (0-0.2); COMPLETE YES; EOS % 6.3 %; GIANT PLATELETS 1+; HYPOCHROMIA PRESENT; LYMPH % 22.6 %; LYMPH ABS # 0.43 K/uL (1.2-3.4); MEAN PLATELET VOLUME 9.7 fL (7.4-10.4); MONO % 8.4 %; NEUT % 62.2 %; PLATELET COUNT 80 K/uL (130-400); PLT ESTIMATE DECREASED; POLYCHROMASIA 1+; TOXIC GRANULATION 1+; VACUOLIZATION 1+
--- NOTE | 2016-08-13 08:24 | Discharge Instructions ---
Discharge Instructions Date of Service Aug 13, 2016. Admission Reason for Admission: Altered Mental State, Uti Discharge Discharge Diagnosis / Problem: UTI, anemia Discharge Goals Goal(s): Decrease discomfort, Therapeutic intervention Activity Recommendations Activity Limitations: resume your previous activity . Instructions / Follow-Up Instructions / Follow-Up You were admitted to the hospital for the evaluation of your generalized weakness. You were found to have low iron and Vit D as well as a urinary tract infection. You were started on antibiotics while in the hospital and will be sent home with oral antibiotics to complete a full course. You received a iron supplement via IV while you were in the hospital and started on oral vitamin D. We recommend getting some blood work checked with your PCP. We wish you well Tyra Gutierrez Current Hospital Diet Patient's current hospital diet: Regular Diet Discharge Diet Recommended Diet: Regular Diet Pending Studies Studies pending at discharge: no Laboratory Results Results Past 24 Hours Test 08/12/16 09:51 08/13/16 07:04 Range/Units Iron Level 15 35-150 mcg/dl Total Iron Binding Capacity 420 250-450 mcg/dl Transferrin 315 200-360 mg/dl Transferrin % Saturation 3 15-50 % Ferritin 10.3 8.0-388.0 ng/ml Prealbumin 12.1 20-40 mg/dl Vitamin B12 Level 453 211-911 pg/mL 25-Hydroxy Vitamin D Total 26.6 30-100 ng/ml Folate 10.03 >5.38 ng/mL White Blood Count 1.90 4.8-10.8 K/uL Red Blood Count 3.59 4.2-5.4 M/uL Hemoglobin 8.8 12.0-16.0 g/dL Hematocrit 27.8 37-47 % Mean Corpuscular Volume 77.4 80-100 fL Mean Corpuscular Hemoglobin 24.5 25-34 pg Mean Corpuscular Hemoglobin Concent 31.7 32-36 g/dl Platelet Count 80 130-400 K/uL Mean Platelet Volume 9.7 7.4-10.4 fL Neutrophils (%) (Auto) 62.2 % Lymphocytes (%) (Auto) 22.6 % Monocytes (%) (Auto) 8.4 % Eosinophils (%) (Auto) 6.3 % Basophils (%) (Auto) 0.5 % Neutrophils # (Auto) 1.18 1.4-6.5 K/uL Lymphocytes # (Auto) 0.43 1.2-3.4 K/uL Monocytes # (Auto) 0.16 0.11-0.59 K/uL Eosinophils # (Auto) 0.12 0-0.5 K/uL Basophils # (Auto) 0.01 0-0.2 K/uL RDW Standard Deviation 60.6 36.4-46.3 fL RDW Coefficient of Variation 21.1 11.5-14.5 % Immature Granulocyte % (Auto) 0.0 % Immature Granulocyte # (Auto) 0.00 0.00-0.02 K/uL Toxic Granulation 1+ Toxic Vacuolation 1+ Platelet Estimate DECREASED Giant Platelets 1+ Polychromasia 1+ Hypochromasia PRESENT Basophilic Stippling 1+ Anisocytosis PRESENT Sodium Level 140 136-145 mmol/L Potassium Level 4.0 3.5-5.1 mmol/L Chloride Level 110 98-107 mmol/L Carbon Dioxide Level 24 21-32 mmol/L Anion Gap 6.0 3-11 mmol/L Blood Urea Nitrogen 6 7-18 mg/dl Creatinine 0.47 0.60-1.20 mg/dl Est Creatinine Clear Calc Drug Dose 115.8 ml/min Estimated GFR () 131.6 Estimated GFR (Non- 113.6 BUN/Creatinine Ratio 12.1 10-20 Random Glucose 89 70-99 mg/dl Calcium Level 8.3 8.5-10.1 mg/dl Magnesium Level 2.0 1.8-2.4 mg/dl Medical Emergencies . Who to Call and When: Medical Emergencies: If at any time you feel your situation is an emergency, please call 911 immediately. . Non-Emergent Contact Non-Emergency issues call your: Primary Care Provider . . "Provider Documentation" section prepared by Ivana Gutierrez. . VTE Core Measure Inpt VTE Proph given/why not?: SCD's [place] Drug Monitoring Program Search Results: patient reviewed within database, no issues identified Drug Monitoring Findings: appropriate rx timing for her prescriptions
[2016-08-13] MEDS: MoRPHine SULFATE 2 MG/ML CARP IV PRN ×2 (08:27→15:11)
--- NOTE | 2016-08-13 08:28 | Discharge Summary ---
Discharge Summary Date of Service Aug 13, 2016. (Ivana Gutierrez MD) Discharge Summary Admission Date: Aug 12, 2016 at 01:52 Discharge Date: Aug 13, 2016 Discharge Disposition: Home with services Principal Diagnosis: anemia, UTI Immunizations: Have You Had Influenza Vaccine: Unknown History of Tetanus Vaccine?: Unknown History of Pneumococcal: Unknown History of Hepatitis B Vaccine: Unknown (Ivana Gutierrez MD) Discharge Exam Patient was agreeable to d/c, instructions given and reflected understanding Review of Systems: Constitutional: No fever Eyes: No worsening of vision ENT: No hearing loss Respiratory: No cough, No sputum, No wheezing, No shortness of breath, No dyspnea on exertion, No dyspnea at rest Cardiovascular: No chest pain Abdomen: No pain, No nausea, No vomiting, No diarrhea, No constipation Musculoskeletal: + joint pain, + muscle pain (BL) Genitourinary - Female: No dysuria, No hematuria Neurologic: No weakness, No numbness/tingling, No balance problems Psychiatric: No depression symptoms Endocrine: No fatigue Integumentary: No rash Physical Exam: General Appearance: no apparent distress Eyes: normal inspection ENT: normal ENT inspection Neck: supple Respiratory/Chest: normal breath sounds, no respiratory distress, no accessory muscle use Cardiovascular: regular rate, rhythm, no murmur Abdomen / GI: normal bowel sounds, non tender, soft Extremities: no calf tenderness, no pedal edema Neurologic/Psychiatric: alert, oriented x 3, + depressed affect Skin: normal color, warm/dry, no rash Lymphatic: no adenopathy (Ivana Gutierrez MD) feeling achy but overall feeling much better Review of Systems: Constitutional: No fever Respiratory: No shortness of breath Cardiovascular: No chest pain Physical Exam: General Appearance: no apparent distress Respiratory/Chest: lungs clear, no respiratory distress Cardiovascular: regular rate, rhythm Abdomen / GI: normal bowel sounds, non tender, soft Neurologic/Psychiatric: alert, oriented x 3 Skin: warm/dry (Ashley Ludwig M.D.) Hospital Course This is a 51 yo f here for dehydration and UTI that has a history of chronic pain syndrome and has an indwelling pain pump. She was treated for UTI with Zosyn and patient had improvement of symptoms. She was also noted to have Iron def and Vit D def. She was given 300 mg of iron IV and oral Vit D. UTI resulting in generalized weakness - no SIRS criteria met - received Zosyn IV - augment treatment based on UA culture Anemia/ Pancytopenia most likely secondary to gastric bypass and malnutrition vs myelodysplastic - Iron studies reflective of def, 300 mg of iron sulfate administered - Vit B12 and folate WNL - Vit D Def- Ergocalciferol and daily Vit D rx - recommend CBC follow up Chronic pain syndrome - indwelling pain pump noted - continue fentanyl patch and home dose of dilaudid - PDMP was reviewed and no concerns however patient was just recently given rx for both her Dilaudid and fentanyl as well as her lorazepam Multiple Sclerosis - no active medications currently Left Hip ORIF - PT/ OT , arrangements will be made for home services DVT Prophylaxis SCD and heparin bid ( BL hgb 9-10) Total Time Spent: Less than 30 minutes This includes examination of the patient, discharge planning, medication reconciliation, and communication with other providers. (Ivana Gutierrez MD) Resident Physician Supervision Note: I was present with Dr. Gutierrez in bedside. I verified the riley history and physical, reviewed labs and image studies, discussed the case with the resident and agree with the findings and care plan. Will benefit from scheduled IV iron infusion on monthly basis considering the extent of iron deficiency and h/o gastric bypass Total Time Spent: Greater than 30 minutes (40 min) (Ashley Ludwig M.D.) Discharge Instructions Please refer to the electronic Patient Visit Report (Discharge Instructions) for additional information. (Ivana Gutierrez MD) Additional Copies To Kevin Vera D.O.
[2016-08-13] MEDS ORDERED: ERGOCALCIFEROL 50,000 INTER.UNIT CAP PO SCH (09:00)
[2016-08-13] MEDS ORDERED: CIPR-255 PO (10:05)
[2016-08-13 10:29] VITALS: BP 98/66; PULSE 87; TEMP 36.6; O2SAT 98
[2016-08-13] MEDS ORDERED: IRON SUCROSE INJ 100 MG in SODIUM CHLORIDE 0.9% 100ML 100 ML IV SCH (11:00)
[2016-08-13 15:00] VITALS: BP 108/73; PULSE 91; TEMP 36.6; O2SAT 99
[2016-08-13] MEDS: hydrOXYzine HCL 10 MG TAB PO PRN (15:14)
[2016-08-14] MEDS ORDERED: VANCOMYCIN TROUGH SCH (17:30)
[2016-08-14] MEDS ORDERED: FENTANYL PATCH REMOVE & WASTE SCH (21:59)
[2016-08-14] MEDS ORDERED: FENTANYL 50 MCG/HR TDSY TD SCH (22:00)
[2016-08-25] MEDS ORDERED: DLD2 PO (18:41)
[2016-08-25] MEDS ORDERED: THIA1TAB PO (18:41)
[2016-08-25] MEDS ORDERED: FOLI1TAB7 PO (18:41)
[2016-08-25] MEDS ORDERED: CYT100 PO (18:41)
[2016-08-25] MEDS ORDERED: MCRB100 PO (18:41)
[2016-08-25] MEDS ORDERED: PRT40 PO (18:41)
[2016-08-25] MEDS ORDERED: CHOL2000 PO (18:49)
[2016-08-25] MEDS ORDERED: ERGO50002 PO (18:49)
== END 2016-08-13 16:31 | disposition home health service (06) | DRG 690 ==
LOC: C.EDB 21:57 → C.4E 08-12 01:52 → ENRESERV 08-12 01:59
PROVIDERS: ADMIT Hospitalist; ATTEND Family Medicine
DX: N39.0 Urinary tract infection, site not specified (principal); D61.818 Other pancytopenia; E46 Unspecified protein-calorie malnutrition; Z68.1 Body mass index [BMI] 19.9 or less, adult; D46.9 Myelodysplastic syndrome, unspecified; E86.0 Dehydration; E55.9 Vitamin D deficiency, unspecified; E61.1 Iron deficiency; R53.1 Weakness; K74.60 Unspecified cirrhosis of liver; G35 Multiple sclerosis; M17.11 Unilateral primary osteoarthritis, right knee; G89.4 Chronic pain syndrome; F41.9 Anxiety disorder, unspecified; Z97.8 Presence of other specified devices; Z98.84 Bariatric surgery status; Z96.642 Presence of left artificial hip joint; Z79.891 Long term (current) use of opiate analgesic; Z79.899 Other long term (current) drug therapy

== ENCOUNTER 2016-08-23 14:27 | Inpatient (IN) | payer OTHER ==
[~2016-08-23] VITALS: Ht 165.1 cm; Wt 50.2 kg
[~2016-08-23 14:27] MED LIST changes: +ATR10 PO; +ATV/1 PO; -ATV1 PO; -CALCTAB7 PO; +CIPR-255 PO; +DLD/2 PO; -FRRS300 PO; +NAPR1TAB9 PO; -ONDA4TAB46 PO; +ONDA4TAB9 PO; +Pain Pump INJ; -VLTG EXT
[2016-08-23] MEDS ORDERED: ONDANSETRON INJ 2 MG/ML 2 ML VIAL IV STA (15:40)
[2016-08-23] MEDS ORDERED: SODIUM CHLORIDE 0.9% 1000ML 1,000 ML IV STA (15:40)
[2016-08-23] MEDS: MoRPHine SULFATE 4 MG/ML 1 ML CARP IV PRN ×2 (15:55→17:53)
[2016-08-23 16:21] LABS: BASO % 0.7 %; BASO ABS # 0.05 K/uL (0-0.2); HEMATOCRIT 38.7 % (37-47); IG% 0.1 %; LYMPH % 17.7 %; LYMPH ABS # 1.28 K/uL (1.2-3.4); MEAN CELL VOLUME 76.5 fL (80-100); MEAN CORPUSCULAR HEMOGLOBIN 24.9 pg (25-34); MEAN CORPUSCULAR HGB CONC 32.6 g/dl (32-36); MONO % 6.1 %; NEUT % 75.4 %; PLATELET COUNT 254 K/uL (130-400); RED BLOOD COUNT 5.06 M/uL (4.2-5.4); WHITE BLOOD COUNT 7.24 K/uL (4.8-10.8)
[2016-08-23 16:38] LABS: INR 1.1 (0.9-1.1); PARTIAL THROMBOPLASTIN RATIO 0.9; PROTHROMBIN TIME (PATIENT) 11.3 SECONDS (9.0-12.0)
[2016-08-23 16:43] LABS: BUN/CREATININE RATIO 22.7 (10-20); CALCIUM 9.3 mg/dl (8.5-10.1); CREATININE 0.59 mg/dl (0.60-1.20); POTASSIUM 4.8 mmol/L (3.5-5.1)
--- NOTE | 2016-08-23 16:48 | DIAGNOSTIC IMAGING REPORT ---
AP CHEST WITH ABDOMINAL SERIES CLINICAL HISTORY: Generalized abdominal pain. FINDINGS: An AP sitting chest radiograph is compared to study dated 08/12/2016 and correlated with chest CT dated 10/29/2015. The cardiomediastinal silhouette is unremarkable. There is chronic elevation of the right hemidiaphragm. No airspace consolidation is seen typical for pneumonia and there is no large pleural effusion. No pneumothorax is seen. The skeletal structures are osteopenic. The bony thorax is grossly intact. Degenerative change and scoliosis are noted in the thoracic spine. Supine and erect abdominal radiographs are compared to study dated 11/19/2015 and correlated with abdominal CT dated 10/26/2015. Numerous surgical clips and suture material project over the upper abdomen. A spinal stimulator device projects over the right lower quadrant. There is a nonobstructed abdominal bowel gas pattern. No evidence of intraperitoneal free air is seen. There are no abnormal abdominal calcifications. Numerous phleboliths are identified in the pelvis. The skeletal structures are osteopenic. The lumbosacral spine and bony pelvis appear intact. Postoperative change is seen in the left femur. IMPRESSION: 1. No acute cardiopulmonary abnormality. 2. Nonobstructed abdominal bowel gas pattern. 3. Postoperative changes as above. Electronically signed by: Herbie Reese M.D. 08/23/2016 4:46 PM Dictated Date/Time: 08/23/2016 4:43 PM
[2016-08-23 16:49] LABS: ANISOCYTOSIS PRESENT; COMPLETE YES; OVALOCYTES 1+
[2016-08-23] MEDS ORDERED: PANTOprazole INJ 80 MG in DEXTROSE 5% 100ML IV SCH (17:45)
[2016-08-23] MEDS ORDERED: ACETAMINOPHEN 325 MG TAB PO PRN (18:00)
[2016-08-23] MEDS ORDERED: POLYETHYLENE (MIRALAX) 17 GM PACK PO PRN (18:00)
[2016-08-23] MEDS ORDERED: ALUMINUM/MAGNESIUM/SIMETH (MAALOX MAX) 30 ML UDC PO PRN (18:00)
[2016-08-23] MEDS ORDERED: MAGNESIUM HYDROXIDE SUSP 30 ML UDC PO PRN (18:00)
[2016-08-23] MEDS ORDERED: ONDANSETRON INJ 2 MG/ML 2 ML VIAL IV PRN (18:00)
[2016-08-23] MEDS ORDERED: PANTOprazole INJ 40 MG in DEXTROSE 5% 100ML IV SCH (18:00)
--- NOTE | 2016-08-23 18:51 | History and Physical ---
History & Physical Date & Time of Service: Aug 23, 2016 at 18:35 Chief Complaint: Ams/Possible Gi Bleed Primary Care Physician: Kevin Vera D.O. History of Present Illness Source: patient, clinic records, EMS This 51 year old lady with chronic pain and known EtOH abuse presents to the ED with a 3 day history of severe pain, specifically in her left leg and hip, which left her unable to mobilize. She also complains of a 2 day history of bloody diarrhea and black vomit. She rates the pain at 8/10, sharp and achy, not relieved by morphine given in ED She has struggled with chronic pain fo 17 years She has been out of her home pain medications for a few days, which she admits is due to her finishing them far before the refill date She admits to being out of her lorazepam for the same reason.. She feels she is unable to eat because of the severe vomiting that follows She admits to drinking 2 cases of beer per weke but has been trying to wean this level on her own recently. Past Medical/Surgical History Medical Problems: (1) Anxiety Status: Chronic (2) Chronic back pain Status: Chronic (3) Endometriosis Status: Chronic (4) Fibromyalgia Status: Chronic (5) GERD (gastroesophageal reflux disease) Status: Chronic (6) Multiple Sclerosis Status: Chronic Surgical Problems: (1) H/O gastric bypass Permanent Comment: 2000 Status: Resolved (2) H/O gastrostomy Permanent Comment: 10/26/14 Status: Resolved (3) H/O total hip arthroplasty Permanent Comment: 2012 Status: Resolved (4) History of cholecystectomy Permanent Comment: 10/26/14 Status: Resolved (5) History of total hysterectomy Permanent Comment: 1994 Status: Resolved Family History Cancer FHx: aneurysm FHx: stroke Social History Smoking Status: Former Smoker Alcohol Use: heavy (2 cases of beer per week) Drug Use: none Marital Status: Housing status: lives alone, intermediate Occupational Status: unemployed Immunizations History of Influenza Vaccine: Unknown History of Tetanus Vaccine?: Unknown History of Pneumococcal: Unknown History of Hepatitis B Vaccine: Unknown Multi-Drug Resistant Organisms History of MDRO: No Allergies Coded Allergies: Clarithromycin (Verified Allergy, Intermediate, HIVES, 08/23/16) Aspirin (Verified Allergy, Mild, 08/23/16) Tramadol (Verified Allergy, Mild, 08/23/16) Oxaprozin (Verified Allergy, Unknown, 08/23/16) Home Medications Scheduled Ciprofloxacin Hcl (Cipro), 500 MG PO BID Fentanyl (Duragesic), 50 MCG TD CQ72HR [Pain Pump], 1 EA INJ CONTINOUS Scheduled PRN Hydromorphone HCl (Hydromorphone HCl), 2 MG PO BID PRN for Pain Hydroxyzine HCl (Hydroxyzine HCl), 10 MG PO UD PRN for Anxiety Lorazepam (Ativan), 1 MG PO Q4H PRN for Anxiety Naproxen (Aleve), 220 MG PO UD PRN for Pain Ondansetron (Ondansetron HCl), 4 MG PO Q6H PRN for Nausea Review of Systems Constitutional: No fever, No weight loss Eyes: No worsening of vision, No eye pain, No redness, No discharge, No diplopia, No problem reported ENT: + problem reported (runny nose), No hearing loss, No unusual epistaxis, No nasal symptoms, No sore throat, No tinnitus, No dental problems, No trouble swallowing Respiratory: No cough, No sputum, No wheezing, No shortness of breath, No dyspnea on exertion, No dyspnea at rest, No hemoptysis, No problem reported Cardiovascular: + chest pain (musculoskeletal), No orthopnea, No PND, No edema , No claudication, No palpitations, No problem reported Abdomen: + nausea, + vomiting, + diarrhea Musculoskeletal: + joint pain Neurologic: + weakness Psychiatric: + anxiety, + insomnia Endocrine: + fatigue Hematologic / Lymphatic: + abnormal bleeding/bruising Physical Exam Vital Signs Date Time Temp Pulse Resp B/P (MAP) Pulse Ox O2 Delivery O2 Flow Rate FiO2 08/23/16 17:58 102 20 153/90 98 Room Air 08/23/16 17:03 112 20 130/95 99 Room Air 08/23/16 15:00 111 16 140/99 100 Room Air 08/23/16 14:41 37.2 110 24 143/90 95 Room Air 08/23/16 14:40 107 General Appearance: + mild distress, + pertinent finding (Twitching facial expressions) Eyes: normal inspection, PERRL, EOMI, sclerae normal ENT: hearing grossly normal, TMs normal, pharynx normal Neck: no JVD, trachea midline Respiratory/Chest: chest non-tender, lungs clear, no respiratory distress, no accessory muscle use Cardiovascular: regular rate, rhythm, no edema, no JVD, no murmur Abdomen/GI: normal bowel sounds, soft, no pulsatile mass, + tenderness, + fecal occult blood Back: no muscle spasm Extremities/Musculoskelatal: no pedal edema, + pertinent finding (Generalized tenderness; too weak to raise arms) Neurologic/Psych: moth proofer II-XII nml as tested, no motor/sensory deficits, alert, normal reflexes, oriented x 3 Skin: normal color Diagnostics Laboratory Results Results Past 24 Hours Test 08/23/16 16:04 08/23/16 17:48 08/23/16 17:57 Range/Units White Blood Count 7.24 4.8-10.8 K/uL Red Blood Count 5.06 4.2-5.4 M/uL Hemoglobin 12.6 12.0-16.0 g/dL Hematocrit 38.7 37-47 % Mean Corpuscular Volume 76.5 80-100 fL Mean Corpuscular Hemoglobin 24.9 25-34 pg Mean Corpuscular Hemoglobin Concent 32.6 32-36 g/dl Platelet Count 254 130-400 K/uL Mean Platelet Volume 9.0 7.4-10.4 fL Neutrophils (%) (Auto) 75.4 % Lymphocytes (%) (Auto) 17.7 % Monocytes (%) (Auto) 6.1 % Eosinophils (%) (Auto) 0.0 % Basophils (%) (Auto) 0.7 % Neutrophils # (Auto) 5.46 1.4-6.5 K/uL Lymphocytes # (Auto) 1.28 1.2-3.4 K/uL Monocytes # (Auto) 0.44 0.11-0.59 K/uL Eosinophils # (Auto) 0.00 0-0.5 K/uL Basophils # (Auto) 0.05 0-0.2 K/uL RDW Standard Deviation 62.6 36.4-46.3 fL RDW Coefficient of Variation 22.5 11.5-14.5 % Immature Granulocyte % (Auto) 0.1 % Immature Granulocyte # (Auto) 0.01 0.00-0.02 K/uL Anisocytosis PRESENT Ovalocytes 1+ Prothrombin Time 11.3 9.0-12.0 SECONDS Prothromb Time International Ratio 1.1 0.9-1.1 Activated Partial Thromboplast Time 23.6 21.0-31.0 SECONDS Partial Thromboplastin Ratio 0.9 Sodium Level 137 136-145 mmol/L Potassium Level 4.8 3.5-5.1 mmol/L Chloride Level 101 98-107 mmol/L Carbon Dioxide Level 21 21-32 mmol/L Anion Gap 15.0 3-11 mmol/L Blood Urea Nitrogen 13 7-18 mg/dl Creatinine 0.59 0.60-1.20 mg/dl Est Creatinine Clear Calc Drug Dose 89.3 ml/min Estimated GFR () 122.1 Estimated GFR (Non- 105.4 BUN/Creatinine Ratio 22.7 10-20 Random Glucose 92 70-99 mg/dl Calcium Level 9.3 8.5-10.1 mg/dl Total Bilirubin 1.7 0.2-1 mg/dl Direct Bilirubin 0.4 0-0.2 mg/dl Aspartate Amino Transf (AST/SGOT) 52 15-37 U/L Alanine Aminotransferase (ALT/SGPT) 42 12-78 U/L Alkaline Phosphatase 288 45-117 U/L Troponin I < 0.015 0-0.045 ng/ml Total Protein 8.0 6.4-8.2 gm/dl Albumin 4.2 3.4-5.0 gm/dl Lipase 108 73-393 U/L Lactic Acid Level 1.4 0.4-2.0 mmol/L Diagnostic Radiology Abdominal Xray: grossly normal CXR normal Impression Assessment and Plan This 51 yo female with an extensive history of EtOH abuse, end stage liver failure, and chronic pain presents with a 2-3 day history of bloody diarrhea, black vomit and acute generalized pain. Current problems: Acute GI bleed --H&H q8h --IV PPI until tomorrow AM; switch to PO/BID --GI consult placed --NPO from midnight Acute on chronic pain --Pain management consult placed --Reinstated home meds for now --Reviewed PDMP: >Dilauded 2mg x120 tablets (30 day supply) filled July 19, 2016, [place] >Fentanyl 50mg patch x 30 day supply filled July 19, 2016, [place] >Ativan 1 mg 21 day supply filled August 11, [facility] *Patient ran out of all meds about 1 week ago Portal HTN/ESLD --Ensure 2 peripheral IVs are placed --Ordered Type and Screen --Night team aware if she becomes hemodynamically unstable, administer octreotide, IV fluids --If signs of hemorrhagic shock, deliver above plus blood and pressors if necessary Alcohol Abuse --Gabapentin protocol in place Code status: Full Resus VTE: contraindicated considering active bleed Dispo: Telemetry; risk of hemorrhagic shock Resident Physician Supervision Note: I interviewed and examined the patient. Discussed with Dr. Ogden and agree with findings and plan as documented in the note. Any exceptions or clarifications are listed here: None Documented By: Bossman Veronica leg pain, ran out of pain meds also incidentally notes black vomit and stool for days. no lightheaded/dizzy that's new. all other ROS otherwise negative except for as above vitals noted nad fatigued breathing unlabored no pallor or icterus leg pain - acute on chronic - follow, possibly chronic with withdrawal in addition GI bleeding - concern on variceal - reassurance is that she's had 2 days of bleeding and is hemodynamicallystable; concerning is with her liver disease risk of variceal bleed. type/screen, 2 IV, follow Hgb, protonix gtt until at least clearly not hemorrhaging, telemetry status otherwise as above Level of Care Telemetry Resuscitation Status FULL RESUSCITATION VTE Prophylaxis VTE Risk Assessment Done? Y/N: Yes Risk Level: Low Given or contraindicated: Contraindicated Social Service Consult Abuse/Neglect Concerns (Self -neglect; lives alone) Note Total Time: Critical Care 30 - 74 minutes Resident Tracking Resident Involvement: Resident Care Provided Care Provided: Adult Hospital Medicine
[2016-08-23 19:29] LABS: HEMATOCRIT 32.3 % (37-47)
[2016-08-23 19:59] VITALS: BP 126/86; PULSE 96; TEMP 36.8; O2SAT 98; Ht 165.1 cm; Wt 50.2 kg
[2016-08-23] MEDS: HYDROmorphone HCL 2 MG TAB PO PRN (20:00)
[2016-08-23] MEDS ORDERED: NON-FORMULARY PATIENT'S OWN MED IV SCH (20:30)
[2016-08-23] MEDS ORDERED: LORAZEPAM 1 MG TAB PO PRN (20:30)
[2016-08-23] MEDS ORDERED: HYDROmorphone HCL 2 MG TAB PO ONE (20:30)
[2016-08-23 20:42] LABS: URINE APPEARANCE CLEAR (CLEAR); URINE BILIRUBIN NEG (NEG); URINE COLOR DK YELLOW; URINE EPITHELIAL CELL AUTO >30 /lpf (0-5); URINE NITRITE NEG (NEG); URINE PH 6.5 (4.5-7.5); URINE SPECIFIC GRAVITY 1.021 (1.000-1.030); UROBILINOGEN NEG (NEG)
[2016-08-23 20:46] LABS: MANUAL MICROSCOPIC REQUIRED? NO; REVIEW REQ? YES
[2016-08-23] MEDS ORDERED: FENTANYL PATCH REMOVE & WASTE SCH (20:59)
[2016-08-23] MEDS ORDERED: FENTANYL 50 MCG/HR TDSY TD SCH (21:00)
[2016-08-23] MEDS ORDERED: GABAPENTIN 1200MG LOADING DOSE PO ONE (21:00)
[2016-08-23] MEDS: SODIUM CHLOR 0.45% + 20MEQ KCL 1,000 ML IV SCH (21:05)
[2016-08-23] MEDS: THIAMINE HCL INJ 100 MG in SYRINGE 9 ML IV SCH (21:07)
[2016-08-23] MEDS: hydrOXYzine HCL 10 MG TAB PO PRN (21:12)
[2016-08-23] MEDS ORDERED: NURSING VERBAL MED ORDER ONE (22:45)
[2016-08-23] MEDS: LORAZEPAM 1 MG TAB PO PRN (23:20)
[2016-08-23] MEDS: PANTOprazole INJ 40 MG in DEXTROSE 5% 100ML IV SCH (23:20)
[2016-08-23] MEDS: CHECK FENTANYL PATCH PLACEMENT SCH (23:21)
[2016-08-24] VITALS (10 sets, daily range): BP systolic 100–137; BP diastolic 61–84; PULSE 70–95; TEMP 36.4–37; O2SAT 94–100
--- NOTE | 2016-08-24 00:16 | EMERGENCY ROOM VISIT NOTE ---
ED Visit Note First contact with patient: 15:18 Chief Complaint: Chest pain, abdominal pain, left foot pain and headache. History of Present Illness: Ms. Saldana is a 51-year-old white female who is brought into the ED via ambulance with multiple complaints including chest pain , abdominal pain, left foot pain, headache, bloody vomitus and bloody stools. Historically patient has multiple medical problems including anemia, GERD, alcoholic liver disease, opiate abuse status post gastric bypassed and gastrectomy. Additionally should be noted that patient is a very poor historian. Patient reports she has been having ongoing pain issues for months. She reports she started having melanotic stools on Tuesday, 2 days ago, and black- appearing vomitus yesterday. She has not identified any aggravating or alleviating factors related to these symptoms. She has not taken any medications for these symptoms. She cannot qualitative or quantitatively report any information about the symptoms. She reports yesterday afternoon she developed a headache, chest pain and abdominal pain. These all occurred at the same time approximately 26-28 hours ago. Since their onset they have been constant. She is unable to describe any of these pains. She rates her headache 10/10, her abdominal pain 10/10 and her chest pain 10/10. These pains are nonradiating. Once again she reports she has not taken any medication for these pain because she ran out of her pain management narcotics a month ago and never showed up for an appointment to have them renewed; at pain management she does take MS Contin and fentanyl patches. She is unsure if her vomiting and diarrhea is related to her abdominal pain. This is not the worst headache of her life and although I cannot find it documented she reports she has a history of migraine headaches. Associated with these pain she reports she is slightly lightheaded and has had a decreased appetite and difficulty ambulating because she is in so much pain. She denies fevers, chills, sweats, skin eruptions, skin color changes, recent head trauma, visual changes, hearing changes, difficulty speaking, difficulty swallowing, coordinating body movements, upper respiratory tract symptoms, cough , wheezing, shortness of breath, palpitations, orthopnea, dependent edema, previous clots, claudication, cramping, recent weight loss, recent weight gain, back/flank pain, urinary symptoms, hematuria, vaginal bleeding, easy bruising, easy bleeding, left lower leg weakness/numbness/tingling. Review of Systems: As noted above in history of present illness. All body systems were reviewed and found to be negative as noted above. 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 (20) Rhabdomyolysis (21) UTI (urinary tract infection) Surgical Problems: (1) H/O gastric bypass (2) H/O gastrostomy (3) H/O total hip arthroplasty (4) History of cholecystectomy (5) History of total hysterectomy Current Medications: Medications Dose Route/Sig Max Daily Dose Days Date Category Dose Instructions Cipro (Ciprofloxacin Hcl) 500 Mg Tab 500 Mg PO BID 5 08/13/16 Rx [Pain Pump] 1 Ea INJ CONTINOUS 08/11/16 Reported CONCENTRATION: DOSE PER DAY: MORPHINE - 30.0 MG/ML MORPHINE - 3.498 MG/DAY FENTANYL - 400.0 MCG/ML FENTANYL - 46.64 MCG/DAY Aleve (Naproxen) 220 Mg Tab 220 Mg PO UD PRN 08/11/16 Reported TAKE PER PACKAGE DIRECTIONS Ondansetron HCl (Ondansetron) 4 Mg Tab 4 Mg PO Q6H PRN 08/11/16 Reported Hydromorphone HCl 2 Mg Tab 2 Mg PO BID PRN 08/11/16 Reported Hydroxyzine HCl 10 Mg Tab 10 Mg PO UD PRN 08/11/16 Reported Ativan (Lorazepam) 1 Mg Tab 1 Mg PO Q4H PRN 08/11/16 Reported Duragesic (Fentanyl) 50 Mcg Tdsy 50 Mcg TD CQ72HR 06/16/16 Reported Allergies to Medications: Aspirin, tramadol, clarithromycin, oxaprozin Social History: Patient is not employed, she denies current tobacco use. Physical Examination: Vital Signs: Date Time Temp Pulse Resp B/P (MAP) Pulse Ox O2 Delivery O2 Flow Rate FiO2 08/23/16 17:58 102 20 153/90 98 Room Air 08/23/16 17:03 112 20 130/95 99 Room Air 08/23/16 15:00 111 16 140/99 100 Room Air 08/23/16 14:41 37.2 110 24 143/90 95 Room Air 08/23/16 14:40 107 GENERAL: 51-year-old female in mild to moderate distress due to pain, chronically ill-appearing, afebrile and hemodynamically stable. NEUROLOGICAL: Awake, alert and oriented to person, place and time. Not answering questions appropriately but following commands. Cranial nerves II through XII grossly intact. Facial tremors noted. Good hand eye coordination. No focal motor or sensory deficits. PSYCHOLOGICAL: Questionable responding to internal stimuli. Does not answer my questions of hallucinations. Affect is flat. Mood is depressed. No appreciable flight of ideas. Denies suicidal homicidal ideation. Patient is disheveled and does not appear to be taking care of herself. While performing a rectal examination on the patient with an escort it is noted that she has stools all over her genitalia and her underwear. SKIN: Warm, dry and pale. No soft tissue eruptions or trauma noted. HEENT: Atraumatic and normocephalic. PERRLA. Sclera white and conjunctiva pink. No drainage from naris. Oral cavity moist and pink. Pharynx is nonerythematous or edematous. Speech normal. No lymphadenopathy. Trachea midline. No jugular venous distention. BACK: No tenderness over the bony spine. No CVA tenderness. THORAX: Lungs sounds are clear to auscultation and equal bilaterally with symmetrical chest wall. No wheezing, rales or rhonchi. No crepitus, tenderness , subcutaneous air or deformities noted. HEART: Regular rate and rhythm. No gallops, rubs or murmurs are appreciated. PMI is not displaced. No lifts, heaves or thrills. ABDOMEN: Flat, soft and nontender. Positive bowel sounds in all quadrants. No guarding, rigidity or organomegaly. RECTAL: No external tags or hemorrhoids. External rectum and genitalia as previously noted and covered with melanotic stool. Normal rectal tone. No palpable rectal masses. Heme positive stools. EXTREMITIES: Moves all extremities well on command and with purpose. All distal neurovascular statuses are intact and equal bilaterally. No calf tenderness or cords. Left Lower Extremity: No gross bony deformity. She does have a surgical scar over the knee and the proximal tibia from her previous fracture. She has diffuse pain from her knee to her foot excluding her toes. I do not appreciate any bony deformities or crepitus. On examination of the knee she holds it in slight flexion but I do not appreciate any ligamentous laxity. She has tenderness over her scar but not her joint lines. No tenderness over her quadriceps or hamstring attachments. Minimal tenderness over the anterior tibia; there is a contusion approximately midway in the tibia without bony deformity or crepitus. No tenderness over the medial or lateral malleolus or surrounding ligamentous structures. No swelling or ecchymosis. Moderate tenderness over the lateral aspect of the foot without bony deformity or crepitus. She does have full range of motion in plantar flexion dorsiflexion and inversion and eversion of the ankle and flexion and extension of all toes. (Imaging of her ankle from May 11 of this years so soft tissue swelling and joint effusion and a possible age indeterminate avulsion fracture; she denies any new trauma to the ankle since these x-rays.) ED Course: Patient is assessed as noted above. Patient's medication list was reviewed. Laboratory Testing: Test 08/23/16 16:04 08/23/16 17:48 Range/Units White Blood Count 7.24 4.8-10.8 K/uL Red Blood Count 5.06 4.2-5.4 M/uL Hemoglobin 12.6 12.0-16.0 g/dL Hematocrit 38.7 37-47 % Mean Corpuscular Volume 76.5 80-100 fL Mean Corpuscular Hemoglobin 24.9 25-34 pg Mean Corpuscular Hemoglobin Concent 32.6 32-36 g/dl Platelet Count 254 130-400 K/uL Mean Platelet Volume 9.0 7.4-10.4 fL Neutrophils (%) (Auto) 75.4 % Lymphocytes (%) (Auto) 17.7 % Monocytes (%) (Auto) 6.1 % Eosinophils (%) (Auto) 0.0 % Basophils (%) (Auto) 0.7 % Neutrophils # (Auto) 5.46 1.4-6.5 K/uL Lymphocytes # (Auto) 1.28 1.2-3.4 K/uL Monocytes # (Auto) 0.44 0.11-0.59 K/uL Eosinophils # (Auto) 0.00 0-0.5 K/uL Basophils # (Auto) 0.05 0-0.2 K/uL RDW Standard Deviation 62.6 36.4-46.3 fL RDW Coefficient of Variation 22.5 11.5-14.5 % Immature Granulocyte % (Auto) 0.1 % Immature Granulocyte # (Auto) 0.01 0.00-0.02 K/uL Anisocytosis PRESENT Ovalocytes 1+ Prothrombin Time 11.3 9.0-12.0 SECONDS Prothromb Time International Ratio 1.1 0.9-1.1 Activated Partial Thromboplast Time 23.6 21.0-31.0 SECONDS Partial Thromboplastin Ratio 0.9 Sodium Level 137 136-145 mmol/L Potassium Level 4.8 3.5-5.1 mmol/L Chloride Level 101 98-107 mmol/L Carbon Dioxide Level 21 21-32 mmol/L Anion Gap 15.0 3-11 mmol/L Blood Urea Nitrogen 13 7-18 mg/dl Creatinine 0.59 0.60-1.20 mg/dl Est Creatinine Clear Calc Drug Dose 89.3 ml/min Estimated GFR () 122.1 Estimated GFR (Non- 105.4 BUN/Creatinine Ratio 22.7 10-20 Random Glucose 92 70-99 mg/dl Calcium Level 9.3 8.5-10.1 mg/dl Total Bilirubin 1.7 0.2-1 mg/dl Direct Bilirubin 0.4 0-0.2 mg/dl Aspartate Amino Transf (AST/SGOT) 52 15-37 U/L Alanine Aminotransferase (ALT/SGPT) 42 12-78 U/L Alkaline Phosphatase 288 45-117 U/L Troponin I < 0.015 0-0.045 ng/ml Total Protein 8.0 6.4-8.2 gm/dl Albumin 4.2 3.4-5.0 gm/dl Lipase 108 73-393 U/L Lactic Acid Level 1.4 0.4-2.0 mmol/L Acute Abdominal Series: Were read by myself and the radiologist and shows a normal-appearing PHS with no infiltrates, effusions or pneumothorax. Was noted that she had chronic elevation of the right hemidiaphragm and degenerative changes and scoliosis of the thoracic spine. Abdominal component shows numerous surgical clips and suture material throughout the upper abdomen, spinal stimulator in the right lower quadrant, nonobstructive bowel gas pattern , no evidence of free air lumbosacral spine and pelvis appear intact and postoperative changes of the left femur were noted. Patient was hydrated with normal saline and received 4 mg of morphine IV for pain, 4 mg of Zofran IV and was given an IV bolus of Protonix and started on a Protonix drip. Patient was reassessed multiple times during her stay in the emergency department. Patient's case was reviewed with Dr. Andrade; we agreed on diagnostic approach, treatment, disposition and plan. Patient's case was consulted with case management and Dr. James, hospitalist, for medical observation/admission. Patient was educated about today's findings. Clinical Impression: Acute GI bleed. Acute on chronic pain of the left lower extremity. Decision-Making: Initially my differential diagnosis I considered esophagitis, gastritis, peptic ulcer disease, postsurgical ulcer, perforated viscus, bowel obstruction and other causes. Disposition and Plan: Patient be brought in the hospital for observation/ admission by the hospitalist; please see their notes and orders for final disposition and plan.
[2016-08-24 02:02] LABS: HEMATOCRIT 29.1 % (37-47)
[2016-08-24] MEDS: GABAPENTIN 600MG Q6H DOSE PO SCH ×2 (03:36→08:21)
[2016-08-24] MEDS: PANTOprazole INJ 40 MG in DEXTROSE 5% 100ML IV SCH ×2 (04:38→08:20)
[2016-08-24] MEDS: SODIUM CHLOR 0.45% + 20MEQ KCL 1,000 ML IV SCH ×2 (05:56→17:20)
--- NOTE | 2016-08-24 08:08 | Family Medicine Progress Note ---
Progress Note Date of Service Aug 24, 2016. Subjective Pt evaluation today including: conversation w/ patient, physical exam, chart review, lab review, review of inpatient medication list Pain: Rates pain at 6/10, primarily in left hip/leg and lower back PO Intake: Still NPO Voiding: voiding difficulty This 51 yo female who presented with acute on chronic pain and GI bleeding still complains of pain this AM. She rates the pain at 6/10, focused primarily in left hip/leg and lower back. She has no other complaints She denied any vomiting or diarrhea since yesterday afternoon. Constitutional: + weakness, + fatigue Abdomen: + pain, No vomiting, No diarrhea, No GI bleeding Musculoskeletal: + joint pain, + muscle pain Female : + dysuria Neurologic: + weakness Psychiatric: + anxiety, + substance abuse (alcohol) Endo: + fatigue All Other Systems: Reviewed and Negative Medications Current Inpatient Medications Medications (Trade) Dose Ordered Sig/Flori Route Start Time Stop Time Status Last Admin Dose Admin Acetaminophen (Tylenol Tab) 650 mg Q4H PRN PO 08/23/16 18:00 09/22/16 17:59 Al Hydrox/Mg Hydrox/Simethicone (Maalox Max Susp) 15 ml Q4H PRN PO 08/23/16 18:00 09/22/16 17:59 Magnesium Hydroxide (Milk Of Magnesia Susp) 30 ml Q12H PRN PO 08/23/16 18:00 09/22/16 17:59 Ondansetron HCl (Zofran Inj) 4 mg Q6H PRN IV 08/23/16 18:00 09/22/16 17:59 Polyethylene (Miralax Powder Packet) 17 gm DAILY PRN PO 08/23/16 18:00 09/22/16 17:59 Fentanyl (Duragesic Patch) 50 mcg Q3D@2100 TD 08/23/16 21:00 09/06/16 20:59 08/23/16 21:17 50 MCG Hydromorphone HCl (Dilaudid Tab) 2 mg BID PRN PO 08/23/16 18:00 09/06/16 17:59 08/23/16 20:00 2 MG Hydroxyzine HCl (Vistaril Tab) 10 mg DAILY PRN PO 08/23/16 18:00 09/22/16 17:59 08/23/16 21:12 10 MG Lorazepam (Ativan Tab) 1 mg Q4H PRN PO 08/23/16 18:00 09/22/16 17:59 08/23/16 23:20 1 MG Ondansetron HCl (Zofran Tab) 4 mg Q6H PRN PO 08/23/16 18:00 09/22/16 17:59 Pantoprazole Sodium 40 mg/ Dextrose 100 ml @ 20 mls/hr Q5H IV 08/23/16 23:00 09/22/16 22:59 08/24/16 04:38 20 MLS/HR Miscellaneous (Fentanyl Patch Remove & Waste) 1 ea Q3D@2059 N/A 08/23/16 20:59 09/22/16 20:58 Miscellaneous Information (Check Fentanyl Patch Placement) 1 ea QS N/A 08/24/16 00:00 09/23/16 00:00 08/23/16 23:21 1 EA Potassium Chloride/Sodium Chloride 1,000 ml @ 100 mls/hr Q10H IV 08/23/16 21:00 08/25/16 02:59 08/24/16 05:56 100 MLS/HR Thiamine HCl 100 mg/Syringe 10 ml @ 2 mls/min DAILY IV 08/23/16 21:00 09/22/16 20:59 08/23/16 21:07 2 MLS/MIN Gabapentin (Neurontin Tab) 600 mg Q6H PO 08/24/16 03:00 08/24/16 09:01 08/24/16 03:36 600 MG Gabapentin (Neurontin Tab) 600 mg Q8H PO 08/24/16 17:00 08/25/16 09:01 Gabapentin (Neurontin Tab) 600 mg Q12H PO 08/25/16 21:00 08/26/16 09:01 Gabapentin (Neurontin Tab) 600 mg Q24H PO 08/27/16 09:00 08/27/16 09:01 Objective Vital Signs Date Time Temp Pulse Resp B/P (MAP) Pulse Ox O2 Delivery O2 Flow Rate FiO2 08/24/16 07:32 36.8 89 20 110/69 (83) 95 Room Air 08/24/16 04:19 36.4 79 18 123/79 (94) 99 Room Air 08/24/16 04:00 Room Air 08/24/16 00:01 36.6 95 16 137/84 (101) 100 Room Air 08/23/16 23:59 Room Air 08/23/16 20:00 Room Air 08/23/16 19:59 36.8 96 20 126/86 98 Room Air 08/23/16 19:04 83 16 151/96 98 08/23/16 18:58 96 20 144/92 98 Room Air 08/23/16 17:58 102 20 153/90 98 Room Air 08/23/16 17:03 112 20 130/95 99 Room Air 08/23/16 15:00 111 16 140/99 100 Room Air 08/23/16 14:41 37.2 110 24 143/90 95 Room Air 08/23/16 14:40 107 Physical Exam General Appearance: + mild distress Eyes: normal inspection, EOMI, sclerae normal ENT: normal ENT inspection, hearing grossly normal, TMs normal, pharynx normal Neck: no JVD, trachea midline Respiratory/Chest: chest non-tender, no respiratory distress, no accessory muscle use, + decreased breath sounds (bilateral; unable to take a full breath due to pain) Cardiovascular: regular rate, rhythm, no edema, no JVD, + systolic murmur Abdomen: normal bowel sounds, soft, + tenderness Extremities: normal inspection, no pedal edema Neurologic/Psychiatric: manager international II-XII nml as tested, no motor/sensory deficits, alert, oriented x 3 Skin: normal color Laboratory Results 08/23/16 16:04 Red Blood Count 5.06, Mean Corpuscular Volume 76.5, Mean Corpuscular Hemoglobin 24.9, Mean Corpuscular Hemoglobin Concent 32.6, Mean Platelet Volume 9.0, Neutrophils (%) (Auto) 75.4, Lymphocytes (%) (Auto) 17.7, Monocytes (%) (Auto) 6.1, Eosinophils (%) (Auto) 0.0, Basophils (%) (Auto) 0.7, Neutrophils # (Auto) 5.46, Lymphocytes # (Auto) 1.28, Monocytes # (Auto) 0.44, Eosinophils # (Auto) 0.00, Basophils # (Auto) 0.05 08/24/16 01:51 08/23/16 16:04 Test 08/23/16 16:04 08/23/16 17:48 08/23/16 19:45 White Blood Count 7.24 K/uL (4.8-10.8) Red Blood Count 5.06 M/uL (4.2-5.4) Hemoglobin 12.6 g/dL (12.0-16.0) Hematocrit 38.7 % (37-47) Mean Corpuscular Volume 76.5 fL (80-100) Mean Corpuscular Hemoglobin 24.9 pg (25-34) Mean Corpuscular Hemoglobin Concent 32.6 g/dl (32-36) Platelet Count 254 K/uL (130-400) Mean Platelet Volume 9.0 fL (7.4-10.4) Neutrophils (%) (Auto) 75.4 % Lymphocytes (%) (Auto) 17.7 % Monocytes (%) (Auto) 6.1 % Eosinophils (%) (Auto) 0.0 % Basophils (%) (Auto) 0.7 % Neutrophils # (Auto) 5.46 K/uL (1.4-6.5) Lymphocytes # (Auto) 1.28 K/uL (1.2-3.4) Monocytes # (Auto) 0.44 K/uL (0.11-0.59) Eosinophils # (Auto) 0.00 K/uL (0-0.5) Basophils # (Auto) 0.05 K/uL (0-0.2) RDW Standard Deviation 62.6 fL (36.4-46.3) RDW Coefficient of Variation 22.5 % (11.5-14.5) Immature Granulocyte % (Auto) 0.1 % Immature Granulocyte # (Auto) 0.01 K/uL (0.00-0.02) Anisocytosis PRESENT Ovalocytes 1+ Prothrombin Time 11.3 SECONDS (9.0-12.0) Prothromb Time International Ratio 1.1 (0.9-1.1) Activated Partial Thromboplast Time 23.6 SECONDS (21.0-31.0) Partial Thromboplastin Ratio 0.9 Anion Gap 15.0 mmol/L (3-11) Est Creatinine Clear Calc Drug Dose 89.3 ml/min Estimated GFR () 122.1 Estimated GFR (Non- 105.4 BUN/Creatinine Ratio 22.7 (10-20) Calcium Level 9.3 mg/dl (8.5-10.1) Total Bilirubin 1.7 mg/dl (0.2-1) Direct Bilirubin 0.4 mg/dl (0-0.2) Aspartate Amino Transf (AST/SGOT) 52 U/L (15-37) Alanine Aminotransferase (ALT/SGPT) 42 U/L (12-78) Alkaline Phosphatase 288 U/L (45-117) Troponin I < 0.015 ng/ml (0-0.045) Total Protein 8.0 gm/dl (6.4-8.2) Albumin 4.2 gm/dl (3.4-5.0) Lipase 108 U/L (73-393) Lactic Acid Level 1.4 mmol/L (0.4-2.0) Urine Color DK YELLOW Urine Appearance CLEAR (CLEAR) Urine pH 6.5 (4.5-7.5) Urine Specific [place] 1.021 (1.000-1.030) Urine Protein TRACE (NEG) Urine Glucose (UA) NEG (NEG) Urine Ketones 3+ (NEG) Urine Occult Blood 2+ (NEG) Urine Nitrite NEG (NEG) Urine Bilirubin NEG (NEG) Urine Urobilinogen NEG (NEG) Urine Leukocyte Esterase SMALL (NEG) Urine WBC (Auto) 10-30 /hpf (0-5) Urine RBC (Auto) 0-4 /hpf (0-4) Urine Hyaline Casts (Auto) 1-5 /lpf (0-5) Urine Epithelial Cells (Auto) >30 /lpf (0-5) Urine Bacteria (Auto) 1+ (NEG) Urine Renal Epithelial Cells 5-10 /lpf (0-5) Assessment and Plan This 51 yo female with a history of EtOH abuse, end stage liver failure, and chronic pain presented with a 2-3 day history of bloody diarrhea, black vomit and acute generalized pain. Current problems: Acute GI bleed --H&H q8h (has trended downward from 10.2-->9.5) --IV PPI switched to pantoprazole 40 mg PO/BID --GI consult: bowel prep today for endoscopy and colonoscopy tomorrow --NPO from midnight for GI procedure; clear liquid diet today Acute on chronic pain --Pain management consult placed --Currently only on 50mcg fentanyl patch --Patient rates pain at 6/10; awaiting pain management for further instructions --Reviewed PDMP: >Dilauded 2mg x120 tablets (30 day supply) filled July 19, 2016, [place] >Fentanyl 50mg patch x 30 day supply filled July 19, 2016, [place] >Ativan 1 mg 21 day supply filled August 11, [facility] *Patient ran out of all meds about 1 week ago Portal HTN/ESLD --Ensured 2 peripheral IVs are placed --Ordered Type and Screen --If she becomes hemodynamically unstable, administer octreotide, IV fluids --If signs of hemorrhagic shock, deliver above plus blood and pressors if necessary Alcohol Abuse --Gabapentin protocol in place Code status: Full Resus VTE: contraindicated considering active bleed; has SCDs Dispo: Telemetry; risk of hemorrhagic shock Resident Physician Supervision Note: I interviewed and examined the patient. Discussed with Dr. Ogden and agree with findings and plan as documented in the note. Any exceptions or clarifications are listed here: None Documented By: Bossman Martin seen twice today - this AM severe pain, later was more comfortable. notes pain bad with movement and weight bearing. notes drinking again due to pain and anxiety. somewhat vague on drinking hx recently. all other ROS otherwise negative except for as above vitals noted initially in a lot of pain on revisit no distress, breathing unlabored, no pallor or icterus GI bleeding - no significant blood loss - likely was hemoconcentrated and drop in Hgb more from dilution than bleeding. for EGD tomorrow. continue PPI pending results. anemia - chronic baseline cirrhosis related cirrhosis - spoke w her frankly that parameters we can see look far better than a year ago and far better than it seems they should - a large part of that likely due to no EtOH abuse during span of hospitalizations and SNF stay - but that resumption of drinking like she is is likely to lead to worsening again and put her at risk for worsening disease/. leg pain - no fx on late july xray, difficult historian but seems to be the same degree of sx since. pain better controlled this afternoon, does have enough chronic deformity/etc to explain pain - especially if withdrawal was added due to being out ofher pain meds. pain better controlled now, no further narcotic withdrawal - ocnitnue to follow clinically - if movement/weight bearing continue to be a constant "wall" as far as pain control, may need to reXray or CT to eval for occult fx EtOH abuse - as above, monitor for withdrawal otherwise Resident Tracking Resident Involvement: Resident Care Provided Care Provided: Adult Hospital Medicine
[2016-08-24] MEDS: HYDROmorphone HCL 2 MG TAB PO PRN ×3 (08:19→20:08)
[2016-08-24] MEDS: THIAMINE HCL INJ 100 MG in SYRINGE 9 ML IV SCH (08:20)
[2016-08-24] MEDS: CHECK FENTANYL PATCH PLACEMENT SCH ×3 (08:22→23:16)
--- NOTE | 2016-08-24 09:22 | Pain Management Consultation ---
Pain Management Consultation Date of Consultation Aug 24, 2016. Reason for Consultation Acute on chronic pain Pain Location 1 - 2 - History Mrs. gutierres is a 51-year-old white female who is well known to the pain service from multiple prior admissions. Patient has history of chronic pain syndrome with intrathecal pump and catheter implantation currently receiving morphine 3.498 mg per day and fentanyl 46.64 micrograms per day via the pump. She is managed by an alternative pain management service in [place] and her intrathecal pump is refilled by [employer]. She is also been utilizing transdermal fentanyl 50 g patch and hydromorphone for when necessary breakthrough pain as confirmed by review of PDMP most recent prescribed in early July. Patient presented to the emergency Department with complaints of pain in her left hip/leg which remains her predominant complaint at this time. The patient is a very poor historian reporting a prior history of a left hip replacement which she believes was at [facility] but there is no records of a repair performed at this hospital. She indicates that her pain is been chronic since the time of her replacement without recent change in severity or location. She denies recent falls or injuries. The patient reports some axial low back pain predominant left-sided which is chronic as well without recent change. She denies any radicular pattern to her symptoms. Patient had also complained of a 2 day history of bloody diarrhea and black vomitus upon this admission which has not been witnessed. She continues to have fairly diffuse body pain complaints as well which are nonfocal/specific. She denies any bowel or bladder incontinence or saddle anesthesias. She rates her current pain is an 8/10 ranging between a 5-8/10. She denies any further constitutional complaints at this time. Past Medical/Surgical History (1) Pneumonia (2) Liver encephalopathy (3) Hyperkalemia (4) Anemia (5) Bacteremia (6) Fungemia (7) Metabolic acidosis (8) TYRONE (acute kidney injury) (9) Fall (10) Presence of intrathecal pump (11) Chronic alcoholic liver disease (12) Hypokalemia (13) Rhabdomyolysis (14) Altered mental state (15) UTI (urinary tract infection) (16) GI bleed (17) Acute pain of left lower extremity (18) Fibromyalgia (19) Chronic back pain (20) Endometriosis (21) Multiple Sclerosis (22) Anxiety (23) GERD (gastroesophageal reflux disease) (24) History of cholecystectomy (25) History of total hysterectomy (26) H/O total hip arthroplasty (27) H/O gastric bypass (28) H/O gastrostomy Family History Cancer FHx: aneurysm FHx: stroke Family Hx Review: nursing review Social / Work History Smoking Status: Never smoker Alcohol Use: heavy (2 cases of beer per week) Drug Use: none (denies) Marital Status: Housing Status: lives alone, fdc Occupation: unemployed Allergies Coded Allergies: Clarithromycin (Verified Allergy, Intermediate, HIVES, 08/23/16) Aspirin (Verified Allergy, Mild, 08/23/16) Tramadol (Verified Allergy, Mild, 08/23/16) Oxaprozin (Verified Allergy, Unknown, 08/23/16) Medications Current Inpatient Medications Medications (Trade) Dose Ordered Sig/Flori Route Start Time Stop Time Status Last Admin Dose Admin Acetaminophen (Tylenol Tab) 650 mg Q4H PRN PO 08/23/16 18:00 09/22/16 17:59 Al Hydrox/Mg Hydrox/Simethicone (Maalox Max Susp) 15 ml Q4H PRN PO 08/23/16 18:00 09/22/16 17:59 Magnesium Hydroxide (Milk Of Magnesia Susp) 30 ml Q12H PRN PO 08/23/16 18:00 09/22/16 17:59 Ondansetron HCl (Zofran Inj) 4 mg Q6H PRN IV 08/23/16 18:00 09/22/16 17:59 Polyethylene (Miralax Powder Packet) 17 gm DAILY PRN PO 08/23/16 18:00 09/22/16 17:59 Fentanyl (Duragesic Patch) 50 mcg Q3D@2100 TD 08/23/16 21:00 09/06/16 20:59 08/23/16 21:17 50 MCG Hydromorphone HCl (Dilaudid Tab) 2 mg BID PRN PO 08/23/16 18:00 09/06/16 17:59 08/24/16 08:19 2 MG Hydroxyzine HCl (Vistaril Tab) 10 mg DAILY PRN PO 08/23/16 18:00 09/22/16 17:59 08/23/16 21:12 10 MG Lorazepam (Ativan Tab) 1 mg Q4H PRN PO 08/23/16 18:00 09/22/16 17:59 08/23/16 23:20 1 MG Ondansetron HCl (Zofran Tab) 4 mg Q6H PRN PO 08/23/16 18:00 09/22/16 17:59 Miscellaneous (Fentanyl Patch Remove & Waste) 1 ea Q3D@2059 N/A 08/23/16 20:59 09/22/16 20:58 Miscellaneous Information (Check Fentanyl Patch Placement) 1 ea QS N/A 08/24/16 00:00 09/23/16 00:00 08/24/16 08:22 1 EA Potassium Chloride/Sodium Chloride 1,000 ml @ 100 mls/hr Q10H IV 08/23/16 21:00 08/25/16 02:59 08/24/16 05:56 100 MLS/HR Thiamine HCl 100 mg/Syringe 10 ml @ 2 mls/min DAILY IV 08/23/16 21:00 09/22/16 20:59 08/24/16 08:20 2 MLS/MIN Gabapentin (Neurontin Tab) 600 mg Q6H PO 08/24/16 03:00 08/24/16 09:01 08/24/16 08:21 600 MG Gabapentin (Neurontin Tab) 600 mg Q8H PO 08/24/16 17:00 08/25/16 09:01 Gabapentin (Neurontin Tab) 600 mg Q12H PO 08/25/16 21:00 08/26/16 09:01 Gabapentin (Neurontin Tab) 600 mg Q24H PO 08/27/16 09:00 08/27/16 09:01 Pantoprazole Sodium (Protonix Tab) 40 mg BID PO 08/24/16 09:00 09/23/16 08:59 UNV Review of Systems Patient denies complaints related to cardiac, pulmonary, GI, , endocrine, neurologic, hepatic, renal, ENT, dermatologic or musculoskeletal other than those described above in the history of present illness. Physical Exam Height & Weight: Height 5 feet, 5.00 inches. Weight 50.600 (Kilograms) 111 (Pounds) Last Vital Signs Documentation Date Time Temp Pulse Resp B/P (MAP) Pulse Ox O2 Delivery O2 Flow Rate FiO2 08/24/16 07:32 36.8 89 20 110/69 (83) 95 Room Air Exam: General: Mrs. gutierres is lying quietly upon entering the room in no acute distress. Patient has significant difficulty with memory recall and is a poor historian. She is frequently unable to name her physicians or time frame of treatments. She is oriented to person and place and time. Musculoskeletal: Patient has diffuse myofascial tenderness to palpation. She remains tender to palpation at greater than 11/18 sites identified by ACR relating to fibromyalgia. Abdomen: Intrathecal pump present in the right lower quadrant without evidence of edema erythema or skin breakdown. Patient nontender over the pump site. Pump is nonmobile. Skin: Fentanyl patch present and intact. Back/spine: Loss of lordosis. Nontender over the midline to palpation percussion. No focal facet joint tenderness provocative testing. Moderate tenderness of the left SI joint region extending in the gluteal area. There is no evidence of skin breakdown. Lower extremities: Multiple well-healed surgical incisions of the left lateral hip status post hip surgery. Generalized tenderness of the lateral aspect of the hip which is nonfocal. Discomfort appreciated throughout range of motion which is diminished when compared to the right. Sensation is intact in the distal lower extremities without obvious deficits impairing left the right. Strength testing 5/5 with dorsiflexion, plantarflexion, EHL testing and hip flexion/extension with some guarding appreciated on the left. Neurologic: Ambulatory function not witnessed. Laboratory Laboratory Results (Last CBC): 08/23/16 16:04 Red Blood Count 5.06, Mean Corpuscular Volume 76.5 L, Mean Corpuscular Hemoglobin 24.9 L, Mean Corpuscular Hemoglobin Concent 32.6, Mean Platelet Volume 9.0, Neutrophils (%) (Auto) 75.4, Lymphocytes (%) (Auto) 17.7, Monocytes (%) (Auto) 6.1, Eosinophils (%) (Auto) 0.0, Basophils (%) (Auto) 0.7, Neutrophils # (Auto) 5.46, Lymphocytes # (Auto) 1.28, Monocytes # (Auto) 0.44, Eosinophils # (Auto) 0.00, Basophils # (Auto) 0.05 08/24/16 01:51 [place] Drug Monitoring Program Search Results: patient reviewed within database Opioid Risk Assessment high risk identified Assessment 1. Acute on chronic left hip pain status post hip surgery-unknown date 2. Possible GI bleed 3. Chronic opiate dependency with history of abuse/misuse 4. History of fibromyalgia 5. Alcohol abuse Recommendations 1. Intrathecal pump was interrogated-refer to pump print out in chart. Patient currently has morphine 30 mg per mL and fentanyl 400 g per mL concentration with daily dose of morphine 3.498 mg per day and fentanyl 46.64 g per day. Current RAMONITA is 31 months. Current reservoir volume is 16 mL with a low reservoir alarm date of 12/22/2016. No adjustments were made intrathecal dose. She will remain under the care of her outpatient pain management program for care and refilling of pump. Would again suggest that the patient consider thoracic spine MRI with and without contrast in the outpatient setting to evaluate for catheter tip granuloma. 2. Recommend maintaining her current dosing of fentanyl and hydromorphone similar to preadmission dosings without change which was confirmed to review of PDMP. 3. No obvious need for re-imaging of the left hip location as her pain has been chronic since the time of surgery without a recent fall or injury. Patient to consider Ortho re-evaluation in the outpatient setting
[2016-08-24] MEDS ORDERED: HYDROmorphone INJ 1 MG/ML SYR IV STA (10:26)
[2016-08-24] MEDS: DICLOFENAC SOD 1% GEL 100 GM TUBE EXT SCH ×3 (11:09→20:09)
--- NOTE | 2016-08-24 12:36 | Medical Student: [facility] ---
Med Student Progress Note Date of Service Aug 24, 2016. Subjective Pt evaluation today including: conversation w/ patient Mrs. Saldana is a 51 year old female with a PMH significant for chronic pain ( 17 years), alcohol abuse (12 beers/day), alcoholic cirrhosis, grade 1 diastolic dysfunction, anxiety, endometriosis, fibromyalgia, GERD, MS, h/o gastric bypass , h/o total hip arthroplasty, h/l of left knee surgery, h/o cholecystectomy, and h/o hysterectomy who presented on 08/23 with worsening left hip and left leg pain of 3 days duration in addition to a 2 day history of bloody diarrhea and black vomitus. She continues to be SOB d/t the pain, but denies any chest pain. She also denies chest pain, abdominal pain, diarrhea, or constipation. She is experiencing dysuria however. She has not had diarrhea or been vomiting since admission to the hospital. She currently rates her left hip and left knee pain as 6/10 and claims her Dilaudid dose at home was 10 mg TID. Review of Systems Constitutional: No fever, No chills, No sweats Eyes: No worsening of vision ENT: No hearing loss Respiratory: + shortness of breath, No cough, No sputum, No wheezing Cardiac: No chest pain, No edema, No palpitations Abdomen: No pain, No nausea, No vomiting, No diarrhea, No constipation Musculoskeletal: No joint pain Female : + dysuria, No urinary frequency, No hematuria Endo: No fatigue Skin: No rash, No itch Objective Vital Signs Date Time Temp Pulse Resp B/P (MAP) Pulse Ox O2 Delivery O2 Flow Rate FiO2 08/24/16 12:22 36.9 90 18 94 08/24/16 10:51 36.9 90 18 100/61 (74) 94 Room Air 08/24/16 08:00 95 Room Air 08/24/16 07:32 36.8 89 20 110/69 (83) 95 Room Air 08/24/16 04:19 36.4 79 18 123/79 (94) 99 Room Air 08/24/16 04:00 Room Air 08/24/16 00:01 36.6 95 16 137/84 (101) 100 Room Air 08/23/16 23:59 Room Air 08/23/16 20:00 Room Air 08/23/16 19:59 36.8 96 20 126/86 98 Room Air 08/23/16 19:04 83 16 151/96 98 08/23/16 18:58 96 20 144/92 98 Room Air 08/23/16 17:58 102 20 153/90 98 Room Air 08/23/16 17:03 112 20 130/95 99 Room Air 08/23/16 15:00 111 16 140/99 100 Room Air 08/23/16 14:41 37.2 110 24 143/90 95 Room Air 08/23/16 14:40 107 Physical Exam General Appearance: WD/WN, + mild distress Eyes: bilateral eyes normal inspection, bilateral eyes PERRL, bilateral eyes EOMI ENT: normal ENT inspection, hearing grossly normal Neck: supple, no adenopathy, thyroid normal, no JVD Respiratory/Chest: lungs clear, normal breath sounds, no respiratory distress, no accessory muscle use Cardiovascular: regular rate, rhythm, no edema, no gallop, no JVD, no murmur Abdomen: normal bowel sounds, non tender, soft, no organomegaly Extremities: no pedal edema, no calf tenderness, normal capillary refill Neurologic/Psychiatric: quality assurance qa lab technician II-XII nml as tested, + motor weakness (0/5 strength left lower extremity, 5/5 strength right lower extremity, 4/5 strength b/l upper extremities ), + sensory deficit (decreased sensation over left lower extremity ) Skin: normal color, warm/dry, no rash Lymphatic: no adenopathy Laboratory Results Last 24 Hours Test 08/23/16 16:04 08/23/16 17:48 08/23/16 19:16 08/23/16 19:45 White Blood Count 7.24 K/uL Red Blood Count 5.06 M/uL Hemoglobin 12.6 g/dL 10.2 g/dL Hematocrit 38.7 % 32.3 % Mean Corpuscular Volume 76.5 fL Mean Corpuscular Hemoglobin 24.9 pg Mean Corpuscular Hemoglobin Concent 32.6 g/dl Platelet Count 254 K/uL Mean Platelet Volume 9.0 fL Neutrophils (%) (Auto) 75.4 % Lymphocytes (%) (Auto) 17.7 % Monocytes (%) (Auto) 6.1 % Eosinophils (%) (Auto) 0.0 % Basophils (%) (Auto) 0.7 % Neutrophils # (Auto) 5.46 K/uL Lymphocytes # (Auto) 1.28 K/uL Monocytes # (Auto) 0.44 K/uL Eosinophils # (Auto) 0.00 K/uL Basophils # (Auto) 0.05 K/uL RDW Standard Deviation 62.6 fL RDW Coefficient of Variation 22.5 % Immature Granulocyte % (Auto) 0.1 % Immature Granulocyte # (Auto) 0.01 K/uL Anisocytosis PRESENT Ovalocytes 1+ Prothrombin Time 11.3 SECONDS Prothromb Time International Ratio 1.1 Activated Partial Thromboplast Time 23.6 SECONDS Partial Thromboplastin Ratio 0.9 Sodium Level 137 mmol/L Potassium Level 4.8 mmol/L Chloride Level 101 mmol/L Carbon Dioxide Level 21 mmol/L Anion Gap 15.0 mmol/L Blood Urea Nitrogen 13 mg/dl Creatinine 0.59 mg/dl Est Creatinine Clear Calc Drug Dose 89.3 ml/min Estimated GFR () 122.1 Estimated GFR (Non- 105.4 BUN/Creatinine Ratio 22.7 Random Glucose 92 mg/dl Calcium Level 9.3 mg/dl Total Bilirubin 1.7 mg/dl Direct Bilirubin 0.4 mg/dl Aspartate Amino Transf (AST/SGOT) 52 U/L Alanine Aminotransferase (ALT/SGPT) 42 U/L Alkaline Phosphatase 288 U/L Troponin I < 0.015 ng/ml Total Protein 8.0 gm/dl Albumin 4.2 gm/dl Lipase 108 U/L Lactic Acid Level 1.4 mmol/L Urine Color DK YELLOW Urine Appearance CLEAR Urine pH 6.5 Urine Specific [place] 1.021 Urine Protein TRACE Urine Glucose (UA) NEG Urine Ketones 3+ Urine Occult Blood 2+ Urine Nitrite NEG Urine Bilirubin NEG Urine Urobilinogen NEG Urine Leukocyte Esterase SMALL Urine WBC (Auto) 10-30 /hpf Urine RBC (Auto) 0-4 /hpf Urine Hyaline Casts (Auto) 1-5 /lpf Urine Epithelial Cells (Auto) >30 /lpf Urine Bacteria (Auto) 1+ Urine Renal Epithelial Cells 5-10 /lpf Test 08/24/16 01:51 Hemoglobin 9.5 g/dL Hematocrit 29.1 % Assessment and Plan Assessment and Plan: Assessment: Mrs. Saldana is a 51 year old female with a PMH significant for chronic pain (17 years), alcohol abuse (12 beers/day), alcoholic cirrhosis, anxiety, endometriosis, fibromyalgia, GERD, MS, h/o gastric bypass, h/o total hip arthroplasty, h/l of left knee surgery, h/o cholecystectomy, and h/o hysterectomy who presented on 08/23 with worsening left hip and left leg pain of 3 days duration in addition to a 2 day history of bloody diarrhea and black vomitus. Chest/abdominal X-ray was unremarkable except for non-obstructed abdominal bowel gas pattern. Serial troponins are negative and lactic acid was normal at 1.4. LFTs are elevated. It is most likely the GI bleed is due to NSAID gastropathy considering Naproxen 220 mg PO is one of her home medications. The etiology of her acute on chronic left hip/left leg pain is attributed most likely to her recent left hip arthroplasty. Plan: GI bleed - dark emesis possibly d/t esophageal varices and bloody stool most likely d/t NSAID gastropathy or complication of gastric bypass surgery -CBC q8hr -IV pantoprazole 40 mg -GI recommendations appreciated -EGD tmr 08/[address] Kraus, keep NPO after midnight and clear liquid diet for now -Colonoscopy outpatient Acute on chronic pain - 2/2 to left hip arthroplasty & left knee surgery -continue home pain management -Intrathecal pump - 3.498 mg morphine per day & 46.64 mg fentanyl per day -50 mcg fentanyl transdermal patch -2 mg hydromorphone BID -pain management recommendations appreciated -no change to intrathecal pump doses -suggest outpatient thoracic spine MRI with and without contrast in the outpatient setting to evaluate for catheter tip granuloma -keep current doses of fentanyl and hydromorphone -patient should consider ortho re-evaluation as outpatient Left lower extremity numbness & tingling - possibly exacerbation of MS vs cutaneous neuropathy from left hip arthroplasty vs lumbar radiculopathy -lumbar x-ray from 06/23/16 showed mild superior endplate central cavity at L3 and L4 which is slightly progressed, likely represent age-indeterminate compression deformities & old mild superior endplate compression fractures at T12 & L1 -reassess on physical exam tomorrow End stage liver disease - alcoholic cirrhosis - t bili 1.7, d bili 0.4, AST 52, ALT 42, and Alk phos 288. Albumin & PT normal. Although patient has alcoholic cirrhosis, patient is not in severe liver failure. -[address] -type & screen completed -Octreotide & IV fluids as needed -daily LFTs -daily INR Alcohol abuse - 12 beers/day -continue Gabapentin protocol for alcohol cessation, 600 mg q6hr > q8hr > q12hr > q24hr Anxiety -continue IV Lorazepam 1 mg q4hr -continue hydroxyzine 10 mg PO UTI - UA nonspecific but showed small leukocyte esterase, 10-30 WBC, and 1+ bacteria & patient having dysuria -most recent UTIs grew E coli & Klebsiella, these were sensitive to Nitrofurantoin -start Nitrofurantoin 100 mg BID Continued [facility] stay due to: inadequate oral pain control
--- NOTE | 2016-08-24 13:07 | Gastrointestinal Consultation ---
Gastrointestinal Consultation Date of Consultation: Aug 24, 2016 Attending Physician: Bossman Martin Consulting Physician: Essence Kraus Reason for Consultation: Lower GI bleed History of Present Illness Patient is a 51 year old female seen for possible GI bleed. She has hx of chronic pain, ETOH abuse (admits to 12 beers daily), presented to ED w c/o severe L leg and hip pain x 3 days, admits to be out of pain, anxiety meds far before her refill date. She also noted poor appetite, n/v, dark colored vomit and diarrhea x 2 days. She denies any coffee grounds in emesis or black tarry, sticky stools though fecal occult blood was positive in ED. Noted admission Hgb 12, down to 9.5 today. BUN/Cr normal. Chest and abd xray unremarkable. She hasn' t had any more emesis or stools since admitted. She had previously been seen by our GI group in April for similar complaints. Hx of gastric bypass w strictures s/p multiple dilations in 2014 via EGD. Last EGD done 11/29: two column of grade 1 varices in the lower esophagus, mucosa was diffusely red, mild snakeskin appearance to the mucosa of the entire stomach, tight gastroenteric anastomotic stricture which precluded passage of scope, ultrathin scope and ERCP wire used for dilation. Last Colonoscopy 02/18/14: entire examined colon is normal, normal ileum. She was supposed to get set up for repeat EGD and colonoscopy after her DC in April but never attended appt. Past Medical/Surgical History Medical Problems: (1) Alcohol dependence Status: Acute (2) Alcohol intoxication Status: Acute (3) Ankle fracture, lateral malleolus, closed Status: Acute (4) Chronic abdominal pain Status: Acute (5) Chronic anemia Status: Acute (6) Confusion Status: Acute (7) Failure of outpatient treatment Status: Acute (8) Fever Status: Acute (9) GI bleed Status: Acute (10) Head injury Status: Acute (11) Hyperbilirubinemia Status: Acute (12) Hypokalemia Status: Acute (13) Hypomagnesemia Status: Acute (14) Jaundice Status: Acute (15) Left elbow pain Status: Acute (16) Pelvic ring fracture Status: Acute (17) Urinary tract infection Status: Acute (18) Urinary tract infection Status: Acute (19) Vomiting Status: Acute Family History Cancer FHx: aneurysm FHx: stroke Social History Smoking Status: Never Smoker Alcohol Use: heavy Drug Use: none Marital Status: Housing Status: lives alone Occupation Status: unemployed Allergies Coded Allergies: Clarithromycin (Verified Allergy, Intermediate, HIVES, 08/23/16) Aspirin (Verified Allergy, Mild, 08/23/16) Tramadol (Verified Allergy, Mild, 08/23/16) Oxaprozin (Verified Allergy, Unknown, 08/23/16) Current Medications Home Meds and Scripts Medications Dose Route/Sig Max Daily Dose Days Date Category Dose Instructions Cipro (Ciprofloxacin Hcl) 500 Mg Tab 500 Mg PO BID 5 08/13/16 Rx [Pain Pump] 1 Ea INJ CONTINOUS 08/11/16 Reported CONCENTRATION: DOSE PER DAY: MORPHINE - 30.0 MG/ML MORPHINE - 3.498 MG/DAY FENTANYL - 400.0 MCG/ML FENTANYL - 46.64 MCG/DAY Aleve (Naproxen) 220 Mg Tab 220 Mg PO UD PRN 08/11/16 Reported TAKE PER PACKAGE DIRECTIONS Ondansetron HCl (Ondansetron) 4 Mg Tab 4 Mg PO Q6H PRN 08/11/16 Reported Hydromorphone HCl 2 Mg Tab 2 Mg PO BID PRN 08/11/16 Reported Hydroxyzine HCl 10 Mg Tab 10 Mg PO UD PRN 08/11/16 Reported Ativan (Lorazepam) 1 Mg Tab 1 Mg PO Q4H PRN 08/11/16 Reported Duragesic (Fentanyl) 50 Mcg Tdsy 50 Mcg TD [id number] 06/16/16 Reported Review of Systems Constitutional: + weakness, No fever, No chills Respiratory: No cough, No shortness of breath Cardiac: No chest pain Abdomen: + see HPI, + pain, + nausea, + vomiting Endo: + fatigue Physical Exam Date Time Temp Pulse Resp B/P (MAP) Pulse Ox O2 Delivery O2 Flow Rate FiO2 08/24/16 12:43 36.8 85 16 118/77 (91) 97 Room Air 08/24/16 12:22 36.9 90 18 94 08/24/16 10:51 36.9 90 18 100/61 (74) 94 Room Air 08/24/16 08:00 95 Room Air 08/24/16 07:32 36.8 89 20 110/69 (83) 95 Room Air 08/24/16 04:19 36.4 79 18 123/79 (94) 99 Room Air 08/24/16 04:00 Room Air 08/24/16 00:01 36.6 95 16 137/84 (101) 100 Room Air 08/23/16 23:59 Room Air 08/23/16 20:00 Room Air 08/23/16 19:59 36.8 96 20 126/86 98 Room Air 08/23/16 19:04 83 16 151/96 98 08/23/16 18:58 96 20 144/92 98 Room Air 08/23/16 17:58 102 20 153/90 98 Room Air 08/23/16 17:03 112 20 130/95 99 Room Air 08/23/16 15:00 111 16 140/99 100 Room Air 08/23/16 14:41 37.2 110 24 143/90 95 Room Air 08/23/16 14:40 107 General Appearance: WD/WN, no apparent distress, + thin Eyes: normal inspection, PERRL, EOMI Neck: supple, no JVD, trachea midline Respiratory/Chest: normal breath sounds, no respiratory distress, no accessory muscle use Cardiovascular: regular rate, rhythm, no gallop, no murmur Abdomen: normal bowel sounds, soft, + tenderness (diffuse), + pertinent finding (RUQ w pain pump) Extremities: normal inspection, no pedal edema, no calf tenderness Neurologic/Psych: alert, normal mood/affect, oriented x 3 Skin: normal color, no jaundice, no rash Laboratory Results Last 24 Hours Test 08/23/16 16:04 08/23/16 17:48 08/23/16 19:16 08/23/16 19:45 White Blood Count 7.24 K/uL Red Blood Count 5.06 M/uL Hemoglobin 12.6 g/dL 10.2 g/dL Hematocrit 38.7 % 32.3 % Mean Corpuscular Volume 76.5 fL Mean Corpuscular Hemoglobin 24.9 pg Mean Corpuscular Hemoglobin Concent 32.6 g/dl Platelet Count 254 K/uL Mean Platelet Volume 9.0 fL Neutrophils (%) (Auto) 75.4 % Lymphocytes (%) (Auto) 17.7 % Monocytes (%) (Auto) 6.1 % Eosinophils (%) (Auto) 0.0 % Basophils (%) (Auto) 0.7 % Neutrophils # (Auto) 5.46 K/uL Lymphocytes # (Auto) 1.28 K/uL Monocytes # (Auto) 0.44 K/uL Eosinophils # (Auto) 0.00 K/uL Basophils # (Auto) 0.05 K/uL RDW Standard Deviation 62.6 fL RDW Coefficient of Variation 22.5 % Immature Granulocyte % (Auto) 0.1 % Immature Granulocyte # (Auto) 0.01 K/uL Anisocytosis PRESENT Ovalocytes 1+ Prothrombin Time 11.3 SECONDS Prothromb Time International Ratio 1.1 Activated Partial Thromboplast Time 23.6 SECONDS Partial Thromboplastin Ratio 0.9 Sodium Level 137 mmol/L Potassium Level 4.8 mmol/L Chloride Level 101 mmol/L Carbon Dioxide Level 21 mmol/L Anion Gap 15.0 mmol/L Blood Urea Nitrogen 13 mg/dl Creatinine 0.59 mg/dl Est Creatinine Clear Calc Drug Dose 89.3 ml/min Estimated GFR () 122.1 Estimated GFR (Non- 105.4 BUN/Creatinine Ratio 22.7 Random Glucose 92 mg/dl Calcium Level 9.3 mg/dl Total Bilirubin 1.7 mg/dl Direct Bilirubin 0.4 mg/dl Aspartate Amino Transf (AST/SGOT) 52 U/L Alanine Aminotransferase (ALT/SGPT) 42 U/L Alkaline Phosphatase 288 U/L Troponin I < 0.015 ng/ml Total Protein 8.0 gm/dl Albumin 4.2 gm/dl Lipase 108 U/L Lactic Acid Level 1.4 mmol/L Urine Color DK YELLOW Urine Appearance CLEAR Urine pH 6.5 Urine Specific [place] 1.021 Urine Protein TRACE Urine Glucose (UA) NEG Urine Ketones 3+ Urine Occult Blood 2+ Urine Nitrite NEG Urine Bilirubin NEG Urine Urobilinogen NEG Urine Leukocyte Esterase SMALL Urine WBC (Auto) 10-30 /hpf Urine RBC (Auto) 0-4 /hpf Urine Hyaline Casts (Auto) 1-5 /lpf Urine Epithelial Cells (Auto) >30 /lpf Urine Bacteria (Auto) 1+ Urine Renal Epithelial Cells 5-10 /lpf Test 08/24/16 01:51 Hemoglobin 9.5 g/dL Hematocrit 29.1 % Impression Patient is a 51 year old female seen for abd pain, n/v, c/o dark colored emesis and stools. She has hx of ETOH and opioid abuses, hx of gastric bypass w gastroenteric anastomosis stenosis s/p multiple dilations in the past. Plan - Protonix 40mg BID - Ok for CL diet today, NPO after midnight for EGD by Dr. Kraus tomorrow on - Plan for outpt colonoscopy - Pain management following. - Primary team to consider psych consult for multi substance abuse (she admitted also was using ETOH to control pain). Late entry: Patient was seen and examined with Meredith Diaz on 08/24. Her note reflects our findings and plan.
[2016-08-24] MEDS ORDERED: NITROFURANTOIN MONOHYDRATE 100 MG CAP PO ONE (16:00)
[2016-08-24] MEDS: GABAPENTIN 600MG Q8H DOSE PO SCH (16:32)
[2016-08-24] MEDS: LORAZEPAM 1 MG TAB PO PRN ×2 (16:32→22:27)
[2016-08-24] MEDS: PANTOprazole SOD 40 MG TAB PO SCH (20:09)
[2016-08-24] MEDS: NITROFURANTOIN MONOHYDRATE 100 MG CAP PO SCH (20:09)
[2016-08-24] MEDS: hydrOXYzine HCL 10 MG TAB PO PRN (21:09)
[2016-08-25] MEDS: GABAPENTIN 600MG Q8H DOSE PO SCH ×2 (00:25→12:03)
[2016-08-25] MEDS: HYDROmorphone HCL 2 MG TAB PO PRN ×3 (02:07→17:38)
[2016-08-25] MEDS: LORAZEPAM 1 MG TAB PO PRN ×4 (02:55→19:52)
--- NOTE | 2016-08-25 06:49 | Family Medicine Progress Note ---
Progress Note Date of Service Aug 25, 2016. Subjective Pt evaluation today including: conversation w/ patient, physical exam, chart review, lab review, review of inpatient medication list Pain: Rated at 8/10 on left hip and thigh, and worsening PO Intake: NPO from midnight Voiding: voiding difficulty Patient continues to suffer greatly with her pain. She has no complaints regarding her vomiting or diarrhea She is requesting more dilaudid as it has been nearly 6 hours since her last dose Constitutional: + fatigue Respiratory: + problem reported (difficulty taking full breath) Abdomen: + problem reported (tenderness) Musculoskeletal: + joint pain, + muscle pain Female : + dysuria Psychiatric: + substance abuse (alcohol and opioids) All Other Systems: Reviewed and Negative Medications Current Inpatient Medications Medications (Trade) Dose Ordered Sig/Flori Route Start Time Stop Time Status Last Admin Dose Admin Acetaminophen (Tylenol Tab) 650 mg Q4H PRN PO 08/23/16 18:00 09/22/16 17:59 Al Hydrox/Mg Hydrox/Simethicone (Maalox Max Susp) 15 ml Q4H PRN PO 08/23/16 18:00 09/22/16 17:59 Magnesium Hydroxide (Milk Of Magnesia Susp) 30 ml Q12H PRN PO 08/23/16 18:00 09/22/16 17:59 Ondansetron HCl (Zofran Inj) 4 mg Q6H PRN IV 08/23/16 18:00 09/22/16 17:59 Polyethylene (Miralax Powder Packet) 17 gm DAILY PRN PO 08/23/16 18:00 09/22/16 17:59 Fentanyl (Duragesic Patch) 50 mcg Q3D@2100 TD 08/23/16 21:00 09/06/16 20:59 08/23/16 21:17 50 MCG Hydroxyzine HCl (Vistaril Tab) 10 mg DAILY PRN PO 08/23/16 18:00 09/22/16 17:59 08/24/16 21:09 10 MG Lorazepam (Ativan Tab) 1 mg Q4H PRN PO 08/23/16 18:00 09/22/16 17:59 08/25/16 02:55 1 MG Ondansetron HCl (Zofran Tab) 4 mg Q6H PRN PO 08/23/16 18:00 09/22/16 17:59 Miscellaneous (Fentanyl Patch Remove & Waste) 1 ea Q3D@2059 N/A 08/23/16 20:59 09/22/16 20:58 Miscellaneous Information (Check Fentanyl Patch Placement) 1 ea QS N/A 08/24/16 00:00 09/23/16 00:00 08/25/16 07:36 1 EA Thiamine HCl 100 mg/Syringe 10 ml @ 2 mls/min DAILY IV 08/23/16 21:00 09/22/16 20:59 08/25/16 07:31 2 MLS/MIN Gabapentin (Neurontin Tab) 600 mg Q8H PO 08/24/16 17:00 08/25/16 09:01 08/25/16 00:25 600 MG Gabapentin (Neurontin Tab) 600 mg Q12H PO 08/25/16 21:00 08/26/16 09:01 Gabapentin (Neurontin Tab) 600 mg Q24H PO 08/27/16 09:00 08/27/16 09:01 Pantoprazole Sodium (Protonix Tab) 40 mg BID PO 08/24/16 20:00 09/23/16 20:59 08/24/16 20:09 40 MG Hydromorphone HCl (Dilaudid Tab) 2 mg QID PRN PO 08/24/16 12:30 09/06/16 17:59 08/25/16 02:07 2 MG Diclofenac Sodium (Voltaren 1% Top Gel) 1 appln QID EXT 08/24/16 12:30 09/23/16 12:59 08/25/16 07:31 1 APPLN Nitrofurantoin Macrocrystals (Macrobid Cap) 100 mg BID PO 08/24/16 20:00 08/29/16 19:59 08/24/16 20:09 100 MG Objective Vital Signs Date Time Temp Pulse Resp B/P (MAP) Pulse Ox O2 Delivery O2 Flow Rate FiO2 08/25/16 07:50 Room Air 08/25/16 07:03 36.5 80 16 110/71 (84) 98 Room Air 08/24/16 23:30 Room Air 08/24/16 23:18 36.6 70 16 116/64 (81) 94 Room Air 08/24/16 16:00 95 Room Air 08/24/16 15:14 37.0 90 16 105/72 (83) 96 Room Air 08/24/16 12:43 36.8 85 16 118/77 (91) 97 Room Air 08/24/16 12:22 36.9 90 18 94 08/24/16 10:51 36.9 90 18 100/61 (74) 94 Room Air Physical Exam General Appearance: + moderate distress Eyes: normal inspection, PERRL, EOMI ENT: hearing grossly normal, pharynx normal Neck: supple, no JVD Respiratory/Chest: lungs clear, normal breath sounds, no accessory muscle use, + decreased breath sounds (unable to take full breath) Cardiovascular: regular rate, rhythm, no edema, no JVD, + systolic murmur Abdomen: normal bowel sounds, no organomegaly, + tenderness Extremities: no pedal edema, + pertinent finding (generalized pain; left hip mildly swollen) Neurologic/Psychiatric: steam table associate II-XII nml as tested, no motor/sensory deficits, alert, oriented x 3 Skin: no rash Laboratory Results 08/25/16 08:08 Assessment and Plan This 51 yo female with a history of EtOH abuse, end stage liver failure, and chronic pain presented with a 2-3 day history of bloody diarrhea, black vomit and acute generalized pain. Current problems: Acute GI bleed --H&H q8h (has trended downward from 10.2-->9.5-->8.8) --Pantoprazole 40 mg PO/BID --GI consult: Endoscopy planned for today; considering colonoscopy on outpatient basis --NPO from midnight for GI procedure today Acute on chronic pain --Pain management saw patient yesterday, reinstated pain pump --Had switched dilaudid to 2 mg QID, since NPO today, gave 1 mg dilaudid stat at about 0800 this AM --Patient rates pain at 8/10; primarily in left thigh and hip --Had xrays performed a few weeks ago, which were negative Ordered CT of hip and thigh for today to rule out any acute pathology, especially considering her complaints and mild swelling on exam. --Reviewed PDMP: >Dilauded 2mg x120 tablets (30 day supply) filled July 19, 2016, [facility] >Fentanyl 50mg patch x 30 day supply filled July 19, 2016, [facility] >Ativan 1 mg 21 day supply filled August 11, [facility] *Patient ran out of all meds about 1 week ago Dysuria UA resulted in dirty sample but no definite UTI; Repeat UA and send for culture Prophylactically started on nitrofurantoin Portal HTN/ESLD --Ensured 2 peripheral IVs are placed --Ordered Type and Screen --If she becomes hemodynamically unstable, administer octreotide, IV fluids --If signs of hemorrhagic shock, deliver above plus blood and pressors if necessary Alcohol Abuse --Gabapentin protocol in place Code status: Full Resus VTE: contraindicated considering active bleed; has SCDs Dispo: Transferred to med/surg; hemodynamically stable for >24 hours Resident Tracking Resident Involvement: Resident Care Provided Care Provided: Adult Hospital Medicine
[2016-08-25 07:03] VITALS: BP 110/71; PULSE 80; TEMP 36.5; O2SAT 98
[2016-08-25] MEDS: DICLOFENAC SOD 1% GEL 100 GM TUBE EXT SCH ×4 (07:31→20:16)
[2016-08-25] MEDS: THIAMINE HCL INJ 100 MG in SYRINGE 9 ML IV SCH (07:31)
[2016-08-25] MEDS: CHECK FENTANYL PATCH PLACEMENT SCH ×2 (07:36→17:34)
[2016-08-25] MEDS ORDERED: HYDROmorphone INJ 1 MG/ML SYR IV STA ×2 (07:59→09:57)
[2016-08-25 08:32] LABS: HEMATOCRIT 30.2 % (37-47)
[2016-08-25] MEDS ORDERED: PROPOFOL IV EMULSION 10 MG/ML 20 ML VIAL IV ONE (10:06)
[2016-08-25] MEDS ORDERED: LIDOCAINE HCL 2% 2 ML VIAL (20MG/ML) ONE (10:06)
[2016-08-25] MEDS ORDERED: NURSING VERBAL MED ORDER ONE (10:30)
--- NOTE | 2016-08-25 10:57 | GI REPORT ---
Procedure Date: 08/25/2016 10:39 AM Procedure: Upper GI endoscopy Indications: Epigastric abdominal pain Medicines: Propofol per Anesthesia Complications: No immediate complications. Estimated blood loss: Minimal. Estimated Blood Loss: Estimated blood loss was minimal. Procedure: Pre-Anesthesia Assessment: - Prior to the procedure, a History and Physical was performed, and patient medications, allergies and sensitivities were reviewed. The patient's tolerance of previous anesthesia was reviewed. - The risks and benefits of the procedure and the sedation options and risks were discussed with the patient. All questions were answered and informed consent was obtained. - Patient identification and proposed procedure were verified prior to the procedure by the physician and the nurse. The procedure was verified in the pre-procedure area in the procedure room. - Mental Status Examination: alert and oriented. Airway Examination: normal oropharyngeal airway and neck mobility. Respiratory Examination: clear to auscultation. CV Examination: normal. Abdominal Examination: bowel sounds present, abdomen soft and non-tender, no masses or organomegaly noted. - ASA Grade Assessment: III - A patient with severe systemic disease. After obtaining informed consent, the endoscope was passed under direct vision. Throughout the procedure, the patient's blood pressure, pulse, and oxygen saturations were monitored continuously. The On-site loaner was introduced through the mouth, and advanced to the jejunum. The upper GI endoscopy was accomplished without difficulty. The patient tolerated the procedure well. Findings: The esophagus was normal. Evidence of a Jeffy-en-Y gastrojejunostomy was found. The gastrojejunal anastomosis was characterized by ulceration. The jejunojejunal anastomosis was characterized by ulceration. Impression: - Normal esophagus. - Jeffy-en-Y gastrojejunostomy with gastrojejunal anastomosis characterized by ulceration and luminal narrowing. - No specimens collected. Recommendation: - Use a proton pump inhibitor PO BID. - Use misoprostol 100 micrograms PO QID. - Repeat EGD in 4-6 weeks - Return to primary care physician as previously scheduled. - Discharge patient to home. Essence Kraus D.O. Essence Kraus DO 08/25/2016 10:57:01 AM This report has been signed electronically. Note Initiated On: 08/25/2016 10:39 AM I attest to the content of the Intraoperative Record and orders documented therein, exceptions below
--- NOTE | 2016-08-25 11:36 | Anesthesiology Progress Note ---
Anesthesia Post Op Note Date & Time Aug 25, 2016 at 11:36 Vital Signs Pain Intensity: 0 Vital Signs Past 12 Hours Date Time Temp Pulse Resp B/P (MAP) Pulse Ox O2 Delivery O2 Flow Rate FiO2 08/25/16 11:26 83 16 109/78 (88) 96 Room Air 08/25/16 11:11 76 16 109/68 (82) 96 Room Air 08/25/16 10:56 72 12 96/63 (74) 99 Room Air 08/25/16 10:38 37.3 91 18 101/61 (74) 97 Room Air 08/25/16 07:50 Room Air 08/25/16 07:03 36.5 80 16 110/71 (84) 98 Room Air 08/25/16 06:07 Room Air Notes Mental Status: alert / awake / arousable, participated in evaluation Pt Amnestic to Procedure: Yes Nausea / Vomiting: adequately controlled Pain: adequately controlled Airway Patency, RR, SpO2: stable & adequate BP & HR: stable & adequate Hydration State: stable & adequate Anesthetic Complications: no major complications apparent
[2016-08-25] MEDS ORDERED: MISOPROSTOL 100 MCG TAB PO SCH (12:00)
[2016-08-25 12:02] VITALS: BP 104/67; PULSE 69; O2SAT 98
[2016-08-25] MEDS: NITROFURANTOIN MONOHYDRATE 100 MG CAP PO SCH ×2 (12:04→20:19)
[2016-08-25] MEDS: PANTOprazole SOD 40 MG TAB PO SCH ×2 (12:04→20:19)
--- NOTE | 2016-08-25 12:22 | DIAGNOSTIC IMAGING REPORT ---
CT SCAN OF THE LEFT LOWER EXTREMITY WITHOUT IV CONTRAST CLINICAL HISTORY: Left thigh pain. COMPARISON STUDY: Radiographs of the pelvis dated 08/11/2016 and 11/28/2015. TECHNIQUE: CT scan of the left lower extremity is performed from the bony pelvis to the proximal tibia and fibula. Images are reviewed in the axial, sagittal, and coronal planes. IV contrast was not administered for this examination. CT DOSE: 846.43 mGy.cm FINDINGS: The skeletal structures are osteopenic. Intertrochanteric and intramedullary nails are present in the left femur. No left femoral fracture is seen. Postoperative change from buttress plate fixation is partially imaged in the proximal tibia. There are chronic appearing fractures of the left superior and inferior pubic ring. There may be a component of acute on chronic fracture involving the left inferior pubic ring. There is an acute appearing comminuted fracture of the left acetabulum. Fracture extends through the acetabular roof as well as the anterior, medial, and posterior wu. Mild protrusio acetabuli is noted. There is questionable cortical irregularity in the partially imaged left sacrum. No large hematoma is identified. Mild intramuscular hematoma is suggested within the left quadratus muscle. The left thigh musculature is atrophic. No soft tissue abnormality is seen in the thigh. The bladder is normal as visualized. The uterus is diminutive versus surgically absent. IMPRESSION: 1. There is a complex/comminuted fracture of the left acetabulum, with fracture extending through the acetabular roof as well as anterior, posterior, and medial wu. 2. There are chronic appearing fractures of the left superior and inferior pubic ring. There may be a component of acute on chronic fracture involving the left inferior pubic ring. 3. Mild cortical irregularity is questioned within the partially imaged left sacrum. If there is concern for left sacral fracture consider dedicated imaging of the pelvis. 4. Postoperative change is seen in the left femur. There is no evidence of femoral fracture. 5. Trace intramuscular hematoma is suggested in the left quadratus. No large hematoma is identified. Electronically signed by: Herbie Reese M.D. 08/25/2016 12:21 PM Dictated Date/Time: 08/25/2016 11:57 AM
[2016-08-25 13:33] VITALS: BP 117/76; PULSE 73; O2SAT 100
--- NOTE | 2016-08-25 14:21 | Medical Student: [facility] ---
Med Student Progress Note Date of Service Aug 25, 2016. Subjective Pt evaluation today including: conversation w/ patient No acute events overnight. Vitals WNLs. Denies CROWELL, chest pain, abdominal pain, diarrhea, vomiting or constipation. Continues to have SOB and anxiety associated her left hip pain. I visited her various times throughout the day and her pain ranged from a 5/10 - 10/10. Review of Systems Constitutional: No fever, No chills, No sweats Eyes: No worsening of vision ENT: No hearing loss Respiratory: + shortness of breath, No cough, No sputum, No wheezing Cardiac: No chest pain, No edema, No palpitations Abdomen: No pain, No nausea, No vomiting, No diarrhea, No constipation Musculoskeletal: + joint pain (left hip & left knee) Female : No dysuria Objective Vital Signs Date Time Temp Pulse Resp B/P (MAP) Pulse Ox O2 Delivery O2 Flow Rate FiO2 08/25/16 13:33 73 100 08/25/16 12:02 69 18 104/67 (79) 98 Room Air 08/25/16 11:26 83 16 109/78 (88) 96 Room Air 08/25/16 11:11 76 16 109/68 (82) 96 Room Air 08/25/16 10:56 72 12 96/63 (74) 99 Room Air 08/25/16 10:38 37.3 91 18 101/61 (74) 97 Room Air 08/25/16 07:50 Room Air 08/25/16 07:03 36.5 80 16 110/71 (84) 98 Room Air 08/25/16 06:07 Room Air 08/24/16 23:30 Room Air 08/24/16 23:18 36.6 70 16 116/64 (81) 94 Room Air 08/24/16 16:00 95 Room Air 08/24/16 15:14 37.0 90 16 105/72 (83) [address] SCAN OF THE LEFT LOWER EXTREMITY WITHOUT IV CONTRAST CLINICAL HISTORY: Left thigh pain. COMPARISON STUDY: Radiographs of the pelvis dated 08/11/2016 and 11/28/2015. TECHNIQUE: CT scan of the left lower extremity is performed from the bony pelvis to the proximal tibia and fibula. Images are reviewed in the axial, sagittal, and coronal planes. IV contrast was not administered for this examination. CT DOSE: 846.43 mGy.cm FINDINGS: The skeletal structures are osteopenic. Intertrochanteric and intramedullary nails are present in the left femur. No left femoral fracture is seen. Postoperative change from buttress plate fixation is partially imaged in the proximal tibia. There are chronic appearing fractures of the left superior and inferior pubic ring. There may be a component of acute on chronic fracture involving the left inferior pubic ring. There is an acute appearing comminuted fracture of the left acetabulum. Fracture extends through the acetabular roof as well as the anterior, medial, and posterior wu. Mild protrusio acetabuli is noted. There is questionable cortical irregularity in the partially imaged left sacrum. No large hematoma is identified. Mild intramuscular hematoma is suggested within the left quadratus muscle. The left thigh musculature is atrophic. No soft tissue abnormality is seen in the thigh. The bladder is normal as visualized. The uterus is diminutive versus surgically absent. IMPRESSION: 1. There is a complex/comminuted fracture of the left acetabulum, with fracture extending through the acetabular roof as well as anterior, posterior, and medial wu. 2. There are chronic appearing fractures of the left superior and inferior pubic ring. There may be a component of acute on chronic fracture involving the left inferior pubic ring. 3. Mild cortical irregularity is questioned within the partially imaged left sacrum. If there is concern for left sacral fracture consider dedicated imaging of the pelvis. 4. Postoperative change is seen in the left femur. There is no evidence of femoral fracture. 5. Trace intramuscular hematoma is suggested in the left quadratus. No large hematoma is identified. AP CHEST WITH ABDOMINAL SERIES CLINICAL HISTORY: Generalized abdominal pain. FINDINGS: An AP sitting chest radiograph is compared to study dated 08/12/2016 and correlated with chest CT dated 10/29/2015. The cardiomediastinal silhouette is unremarkable. There is chronic elevation of the right hemidiaphragm. No airspace consolidation is seen typical for pneumonia and there is no large pleural effusion. No pneumothorax is seen. The skeletal structures are osteopenic. The bony thorax is grossly intact. Degenerative change and scoliosis are noted in the thoracic spine. Supine and erect abdominal radiographs are compared to study dated 11/19/2015 and correlated with abdominal CT dated 10/26/2015. Numerous surgical clips and suture material project over the upper abdomen. A spinal stimulator device projects over the right lower quadrant. There is a nonobstructed abdominal bowel gas pattern. No evidence of intraperitoneal free air is seen. There are no abnormal abdominal calcifications. Numerous phleboliths are identified in the pelvis. The skeletal structures are osteopenic. The lumbosacral spine and bony pelvis appear intact. Postoperative change is seen in the left femur. IMPRESSION: 1. No acute cardiopulmonary abnormality. 2. Nonobstructed abdominal bowel gas pattern. 3. Postoperative changes as above. Physical Exam General Appearance: WD/WN, + moderate distress Eyes: bilateral eyes normal inspection, bilateral eyes PERRL, bilateral eyes EOMI ENT: normal ENT inspection, hearing grossly normal Neck: supple, no adenopathy, thyroid normal Respiratory/Chest: lungs clear, normal breath sounds, no respiratory distress, no accessory muscle use Cardiovascular: regular rate, rhythm, no edema, no gallop, no JVD, no murmur Abdomen: normal bowel sounds, non tender, soft, no organomegaly Extremities: no pedal edema, no calf tenderness, + pertinent finding ( tenderness on palpation over left hip and left knee ) Neurologic/Psychiatric: industrial health engineer II-XII nml as tested, + motor weakness (0/5 strength left lower extremity, 5/5 strength right lower extremity, 4/5 strength upper extremities b/l ) Skin: normal color, warm/dry, no rash Laboratory Results Last 24 Hours Test 08/24/16 19:53 08/25/16 08:08 Hemoglobin 8.8 g/dL 9.0 g/dL Hematocrit 28.0 % 30.2 % Assessment and Plan Assessment and Plan: Assessment: Mrs. Saldana is a 51 year old female with a PMH significant for chronic pain (17 years), alcohol abuse (12 beers/day), alcoholic cirrhosis, anxiety, endometriosis, fibromyalgia, GERD, MS, h/o gastric bypass, h/o total hip arthroplasty, h/l of left knee surgery, h/o cholecystectomy, and h/o hysterectomy who presented on 08/23 with worsening left hip and left leg pain of 3 days duration in addition to a 2 day history of bloody diarrhea and black vomitus. Chest/abdominal X-ray was unremarkable except for non-obstructed abdominal bowel gas pattern. Serial troponins are negative and lactic acid was normal at 1.4. LFTs are elevated. It is most likely the GI bleed is due to NSAID gastropathy considering Naproxen 220 mg PO is one of her home medications. The etiology of her acute on chronic left hip/left leg pain is attributed to a complex left acetabulum fracture as seen on left hip CT today. Plan: GI bleed - dark emesis possibly d/t esophageal varices and bloody stool most likely d/t NSAID gastropathy or complication of gastric bypass surgery -CBC q8hr -IV pantoprazole 40 mg -GI recommendations appreciated -EGD by Dr. Kraus showed ulceration at gastrojejunal anastomosis and jejunojejunal anastomosis of Jeffy-en-Y gastrojejunostomy, no specimens collected -use misoprostol 100 mcg PO QID -continue IV pantoprazole 40 mg PO BID -Colonoscopy outpatient Acute on chronic pain - 2/2 to left complex acetabulum fracture -continue home pain management -Intrathecal pump - 3.498 mg morphine per day & 46.64 mg fentanyl per day -50 mcg fentanyl transdermal patch -2 mg hydromorphone BID -pain management recommendations appreciated -no change to intrathecal pump doses -suggest outpatient thoracic spine MRI with and without contrast in the outpatient setting to evaluate for catheter tip granuloma -keep current doses of fentanyl and hydromorphone -patient should consider ortho re-evaluation as outpatient -left hip CT showed comminuted complex acetabular fracture w/ fracture extending through acetabular roof as well as anterior, posterior and medial wu, chronic left pubic ring fractures, and acute on chronic left inferior pubic ring fractures with possible left sacral fracture -per ortho recommendations -current treatment options open reduction internal fixation of acetabular fracture vs hip replacement surgery -no one at [facility] will perform procedure -pt should continue to be nonweightbearing -order left hip x-ray -patient desires to go to [facility] for surgery Left lower extremity numbness & tingling - possibly exacerbation of MS vs cutaneous neuropathy from left hip arthroplasty vs lumbar radiculopathy -lumbar x-ray from 06/23/16 showed mild superior endplate central cavity at L3 and L4 which is slightly progressed, likely represent age-indeterminate compression deformities & old mild superior endplate compression fractures at T12 & L1 -reassess on physical exam tomorrow End stage liver disease - alcoholic cirrhosis - t bili 1.7, d bili 0.4, AST 52, ALT 42, and Alk phos 288. Albumin & PT normal. Although patient has alcoholic cirrhosis, patient is not in severe liver failure. -[address] -type & screen completed -Octreotide & IV fluids as needed -daily LFTs -daily INR -ammonia level for confusion & worsening memory? Alcohol abuse - 12 beers/day -continue Gabapentin protocol for alcohol cessation, 600 mg q6hr > q8hr > q12hr > q24hr -continue thiamine 100 mg PO daily Anxiety -continue IV Lorazepam 1 mg q4hr -continue hydroxyzine 10 mg PO UTI - UA nonspecific but showed small leukocyte esterase, 10-30 WBC, and 1+ bacteria & patient having dysuria -most recent UTIs grew E coli & Klebsiella, these were sensitive to Nitrofurantoin -continue Nitrofurantoin 100 mg BID Constipation -MgOH 30 mL q12hr -Miralax 17 g PO daily Nausea -IV Zofran 4 mg q6hr Continued [facility] stay due to: inadequate oral pain control
[2016-08-25 15:24] VITALS: BP 112/72; PULSE 86; TEMP 36.5; O2SAT 99
--- NOTE | 2016-08-25 16:03 | Orthopedic Consultation ---
Orthopedic Consultation Date of Consultation: Aug 25, 2016. Attending Physician: Bossman Martin D.O. Reason for Consultation: Chronic left hip pain, history of hip fracture. History of Present Illness 51-year-old female who relocated to [facility] from [place]. She had an injury to her hip 5 years ago when she sustained a fractured hip and knee on the left leg. She had open reduction internal fixation hip and knee. 3 months ago she said she fractured her hip but does not remember the injury well. She said she saw position for the fracture was told not to put weight on it but she doesn't remember the physician and she doesn't remember much about any other discussions with regard to the treatment. She does relate to me that she is fallen a few times on it since then and she's had chronic pain. Past Medical/Surgical History Medical Problems: (1) Alcohol dependence Status: Acute (2) Alcohol intoxication Status: Acute (3) Ankle fracture, lateral malleolus, closed Status: Acute (4) Chronic abdominal pain Status: Acute (5) Chronic anemia Status: Acute (6) Confusion Status: Acute (7) Failure of outpatient treatment Status: Acute (8) Fever Status: Acute (9) GI bleed Status: Acute (10) Head injury Status: Acute (11) Hyperbilirubinemia Status: Acute (12) Hypokalemia Status: Acute (13) Hypomagnesemia Status: Acute (14) Jaundice Status: Acute (15) Left elbow pain Status: Acute (16) Pelvic ring fracture Status: Acute (17) Urinary tract infection Status: Acute (18) Urinary tract infection Status: Acute (19) Vomiting Status: Acute Family History Cancer FHx: aneurysm FHx: stroke Social History Smoking Status: Never Smoker Alcohol Use: heavy (2 cases of beer per week) Drug Use: none Marital Status: Housing Status: lives alone Occupation Status: unemployed Allergies Coded Allergies: Clarithromycin (Verified Allergy, Intermediate, HIVES, 08/23/16) Aspirin (Verified Allergy, Mild, 08/23/16) Tramadol (Verified Allergy, Mild, 08/23/16) Oxaprozin (Verified Allergy, Unknown, 08/23/16) Home Medications Scheduled Ciprofloxacin Hcl (Cipro), 500 MG PO BID Fentanyl (Duragesic), 50 MCG TD [id number] [Pain Pump], 1 EA INJ CONTINOUS Scheduled PRN Hydromorphone HCl (Hydromorphone HCl), 2 MG PO BID PRN for Pain Hydroxyzine HCl (Hydroxyzine HCl), 10 MG PO UD PRN for Anxiety Lorazepam (Ativan), 1 MG PO Q4H PRN for Anxiety Naproxen (Aleve), 220 MG PO UD PRN for Pain Ondansetron (Ondansetron HCl), 4 MG PO Q6H PRN for Nausea Current Inpatient Medications Current Inpatient Medications Medications (Trade) Dose Ordered Sig/Flori Route Start Time Stop Time Status Last Admin Dose Admin Acetaminophen (Tylenol Tab) 650 mg Q4H PRN PO 08/23/16 18:00 09/22/16 17:59 Al Hydrox/Mg Hydrox/Simethicone (Maalox Max Susp) 15 ml Q4H PRN PO 08/23/16 18:00 09/22/16 17:59 Magnesium Hydroxide (Milk Of Magnesia Susp) 30 ml Q12H PRN PO 08/23/16 18:00 09/22/16 17:59 Ondansetron HCl (Zofran Inj) 4 mg Q6H PRN IV 08/23/16 18:00 09/22/16 17:59 Polyethylene (Miralax Powder Packet) 17 gm DAILY PRN PO 08/23/16 18:00 09/22/16 17:59 Fentanyl (Duragesic Patch) 50 mcg Q3D@2100 TD 08/23/16 21:00 09/06/16 20:59 08/23/16 21:17 50 MCG Hydroxyzine HCl (Vistaril Tab) 10 mg DAILY PRN PO 08/23/16 18:00 09/22/16 17:59 08/24/16 21:09 10 MG Lorazepam (Ativan Tab) 1 mg Q4H PRN PO 08/23/16 18:00 09/22/16 17:59 08/25/16 12:03 1 MG Ondansetron HCl (Zofran Tab) 4 mg Q6H PRN PO 08/23/16 18:00 09/22/16 17:59 Miscellaneous (Fentanyl Patch Remove & Waste) 1 ea Q3D@9 N/A 08/23/16 20:59 09/22/16 20:58 Miscellaneous Information (Check Fentanyl Patch Placement) 1 ea QS N/A 08/24/16 00:00 09/23/16 00:00 08/25/16 07:36 1 EA Thiamine HCl 100 mg/Syringe 10 ml @ 2 mls/min DAILY IV 08/23/16 21:00 09/22/16 20:59 08/25/16 07:31 2 MLS/MIN Gabapentin (Neurontin Tab) 600 mg Q12H PO 08/25/16 21:00 08/26/16 09:01 Gabapentin (Neurontin Tab) 600 mg Q24H PO 08/27/16 09:00 08/27/16 09:01 Pantoprazole Sodium (Protonix Tab) 40 mg BID PO 08/24/16 20:00 09/23/16 20:59 08/25/16 12:04 40 MG Hydromorphone HCl (Dilaudid Tab) 2 mg QID PRN PO 08/24/16 12:30 09/06/16 17:59 08/25/16 12:03 2 MG Diclofenac Sodium (Voltaren 1% Top Gel) 1 appln QID EXT 08/24/16 12:30 09/23/16 12:59 08/25/16 12:04 1 APPLN Nitrofurantoin Macrocrystals (Macrobid Cap) 100 mg BID PO 08/24/16 20:00 08/29/16 19:59 08/25/16 12:04 100 MG Misoprostol (Cytotec Tab) 100 mcg QID PO 08/25/16 17:00 09/24/16 16:59 Review of Systems Abdomen: + GI bleeding Physical Exam Date Time Temp Pulse Resp B/P (MAP) Pulse Ox O2 Delivery O2 Flow Rate FiO2 08/25/16 13:33 73 100 08/25/16 12:02 69 18 104/67 (79) 98 Room Air 08/25/16 11:26 83 16 109/78 (88) 96 Room Air 08/25/16 11:11 76 16 109/68 (82) 96 Room Air 08/25/16 10:56 72 12 96/63 (74) 99 Room Air 08/25/16 10:38 37.3 91 18 101/61 (74) 97 Room Air 08/25/16 07:50 Room Air 08/25/16 07:03 36.5 80 16 110/71 (84) 98 Room Air 08/25/16 06:07 Room Air 08/24/16 23:30 Room Air 08/24/16 23:18 36.6 70 16 116/64 (81) 94 Room Air 08/24/16 16:00 95 Room Air Extremities/Musculoskelatal: + pertinent finding (no gross shortening of her left hip but has restricted range of motion with only about 40 of hip flexion and 20 of abduction and limited internal rotation and pain with any passive range of motion of the left hip. She has old scars that are healed from prior surgery. She has scars about her knee on the ipsilateral leg from ORIF tibial plateau she has a prominent deposit under skin adjacent to the scar possibly calcium deposit at her old suture material. There is no sign of infection of the knee or the hip. She can dorsiflex and plantarflex her ankle and her circulation appears to be normal.) Laboratory Results Last 24 Hours Test 08/24/16 19:53 08/25/16 08:08 Hemoglobin 8.8 g/dL 9.0 g/dL Hematocrit 28.0 % 30.2 % Assessment & Plan Her CT scan reviewed. This demonstrates a comminuted complex acetabular fracture with some protrusio acetabuli which will cause impingement on the neck of the femur and limited her mobility. There is no clear evidence of any significant healing at this time. Does appear to have osteopenia or osteoporosis. She does have hardware in the femoral head and trochanter and shaft which is a trochanteric femoral nail from the old fixation which is solid and healed. Patient will unlikely have a good functional result with non operative treatment. If the fracture does eventually heal in this position she will have some limitation of motion and hip impingement and likely some chronic pain and likely osteoarthritis develop in the hip. Current treatment options may be open reduction internal fixation of acetabular fracture or potentially having hip replacement surgery which would require removing the hardware and having an acetabulum component that would even be custom-made or PA cage or bridging type implant that could bridge the defects or possible combination with internal fixation and acetabular fixation. At this time there is no one in our institution and on the [facility] that is going to perform this procedure. We could either refer her out to a trauma center or possibly send her images to one of the local trauma centers to have a trauma surgeon look at the images and the decide best treatment option for her. At the present time she should be nonweightbearing left lower extremity and new x-rays ordered for baseline and would recommend that pain management consult to manage her chronic pain.
[2016-08-25] MEDS: MISOPROSTOL 100 MCG TAB PO SCH ×2 (17:33→20:18)
--- NOTE | 2016-08-25 18:01 | DIAGNOSTIC IMAGING REPORT ---
LEFT PELVIS/UNILATERAL HIP 2-3VIEWS CLINICAL HISTORY: 51 years-old Female presenting with ACUTE PAIN OF LEFT LOWER EXTREMITY. TECHNIQUE: Frontal view of the pelvis and frontal and frog-leg lateral views of the left hip were obtained. COMPARISON: 08/11/2016. FINDINGS: Intramedullary kaylee with interlocking screw fixation of the left femoral neck and proximal metaphysis. An interlocking screw is noted in the proximal diaphysis. No hardware complication. Post traumatic deformity of the left hip with acetabular protrusion and deformities and chronic fractures of the left superior and inferior pubic rami. Fracture planes through the left pubic ring remain visible. The left femoral head does not demonstrate significant degenerative or posttraumatic changes. Hips congruent. Osteopenia. No acute osseous injury. A mobile paramedical examiner projects over the right lower quadrant with a small catheter coursing towards the lower lumbar region. IMPRESSION: 1. No acute osseous injury. 2. Posttraumatic and postsurgical changes of the left proximal femur and left hip joint. 3. Chronic left pubic ring fractures. Electronically signed by: Luis A Cali M.D. 08/25/2016 5:59 PM Dictated Date/Time: 08/25/2016 5:54 PM
[2016-08-25] MEDS: ONDANSETRON 4 MG TAB PO PRN (18:17)
--- NOTE | 2016-08-25 18:39 | Discharge Summary ---
Discharge Summary Date of Service Aug 25, 2016. Discharge Summary Admission Date: Aug 23, 2016 at 18:07 Discharge Date: Aug 25, 2016 Discharge Disposition: Acute [facility] Principal Diagnosis: acetabular fracture Immunizations: Have You Had Influenza Vaccine: Unknown History of Tetanus Vaccine?: Unknown History of Pneumococcal: Unknown History of Hepatitis B Vaccine: Unknown Procedures: EGD done 08/25: showing 2 anastomotic ulcerations no significant bleeding, recommended QID misoprostol and BID PPI --- CT SCAN OF THE LEFT LOWER EXTREMITY WITHOUT IV CONTRAST CLINICAL HISTORY: Left thigh pain. COMPARISON STUDY: Radiographs of the pelvis dated 08/11/2016 and 11/28/2015. TECHNIQUE: CT scan of the left lower extremity is performed from the bony pelvis to the proximal tibia and fibula. Images are reviewed in the axial, sagittal, and coronal planes. IV contrast was not administered for this examination. CT DOSE: 846.43 mGy.cm FINDINGS: The skeletal structures are osteopenic. Intertrochanteric and intramedullary nails are present in the left femur. No left femoral fracture is seen. Postoperative change from buttress plate fixation is partially imaged in the proximal tibia. There are chronic appearing fractures of the left superior and inferior pubic ring. There may be a component of acute on chronic fracture involving the left inferior pubic ring. There is an acute appearing comminuted fracture of the left acetabulum. Fracture extends through the acetabular roof as well as the anterior, medial, and posterior wu. Mild protrusio acetabuli is noted. There is questionable cortical irregularity in the partially imaged left sacrum. No large hematoma is identified. Mild intramuscular hematoma is suggested within the left quadratus muscle. The left thigh musculature is atrophic. No soft tissue abnormality is seen in the thigh. The bladder is normal as visualized. The uterus is diminutive versus surgically absent. IMPRESSION: 1. There is a complex/comminuted fracture of the left acetabulum, with fracture extending through the acetabular roof as well as anterior, posterior, and medial wu. 2. There are chronic appearing fractures of the left superior and inferior pubic ring. There may be a component of acute on chronic fracture involving the left inferior pubic ring. 3. Mild cortical irregularity is questioned within the partially imaged left sacrum. If there is concern for left sacral fracture consider dedicated imaging of the pelvis. 4. Postoperative change is seen in the left femur. There is no evidence of femoral fracture. 5. Trace intramuscular hematoma is suggested in the left quadratus. No large hematoma is identified. Electronically signed by: Herbie Reese M.D. 08/25/2016 12:21 PM Dictated Date/Time: 08/25/2016 11:57 AM LEFT PELVIS/UNILATERAL HIP 2-3VIEWS CLINICAL HISTORY: 51 years-old Female presenting with ACUTE PAIN OF LEFT LOWER EXTREMITY. TECHNIQUE: Frontal view of the pelvis and frontal and frog-leg lateral views of the left hip were obtained. COMPARISON: 08/11/2016. FINDINGS: Intramedullary kaylee with interlocking screw fixation of the left femoral neck and proximal metaphysis. An interlocking screw is noted in the proximal diaphysis. No hardware complication. Post traumatic deformity of the left hip with acetabular protrusion and deformities and chronic fractures of the left superior and inferior pubic rami. Fracture planes through the left pubic ring remain visible. The left femoral head does not demonstrate significant degenerative or posttraumatic changes. Hips congruent. Osteopenia. No acute osseous injury. A medical scientist projects over the right lower quadrant with a small catheter coursing towards the lower lumbar region. IMPRESSION: 1. No acute osseous injury. 2. Posttraumatic and postsurgical changes of the left proximal femur and left hip joint. 3. Chronic left pubic ring fractures. Electronically signed by: Luis A Cali M.D. 08/25/2016 5:59 PM Dictated Date/Time: 08/25/2016 5:54 PM [~ rep ct add3]] AP CHEST WITH ABDOMINAL SERIES CLINICAL HISTORY: Generalized abdominal pain. FINDINGS: An AP sitting chest radiograph is compared to study dated 08/12/2016 and correlated with chest CT dated 10/29/2015. The cardiomediastinal silhouette is unremarkable. There is chronic elevation of the right hemidiaphragm. No airspace consolidation is seen typical for pneumonia and there is no large pleural effusion. No pneumothorax is seen. The skeletal structures are osteopenic. The bony thorax is grossly intact. Degenerative change and scoliosis are noted in the thoracic spine. Supine and erect abdominal radiographs are compared to study dated 11/19/2015 and correlated with abdominal CT dated 10/26/2015. Numerous surgical clips and suture material project over the upper abdomen. A spinal stimulator device projects over the right lower quadrant. There is a nonobstructed abdominal bowel gas pattern. No evidence of intraperitoneal free air is seen. There are no abnormal abdominal calcifications. Numerous phleboliths are identified in the pelvis. The skeletal structures are osteopenic. The lumbosacral spine and bony pelvis appear intact. Postoperative change is seen in the left femur. IMPRESSION: 1. No acute cardiopulmonary abnormality. 2. Nonobstructed abdominal bowel gas pattern. 3. Postoperative changes as above. Electronically signed by: Herbie Reese M.D. 08/23/2016 4:46 PM Dictated Date/Time: 08/23/2016 4:43 PM Last Resulted CBC 08/23/16 16:04 Red Blood Count 5.06, Mean Corpuscular Volume 76.5, Mean Corpuscular Hemoglobin 24.9, Mean Corpuscular Hemoglobin Concent 32.6, Mean Platelet Volume 9.0, Neutrophils (%) (Auto) 75.4, Lymphocytes (%) (Auto) 17.7, Monocytes (%) (Auto) 6.1, Eosinophils (%) (Auto) 0.0, Basophils (%) (Auto) 0.7, Neutrophils # (Auto) 5.46, Lymphocytes # (Auto) 1.28, Monocytes # (Auto) 0.44, Eosinophils # (Auto) 0.00, Basophils # (Auto) 0.05 08/25/16 08:08 Last Resulted BMP 08/23/16 16:04 Consultations: GI (EGD done see above) ortho -- impression as follows: Her CT scan reviewed. This demonstrates a comminuted complex acetabular fracture with some protrusio acetabuli which will cause impingement on the neck of the femur and limited her mobility. There is no clear evidence of any significant healing at this time. Does appear to have osteopenia or osteoporosis. She does have hardware in the femoral head and trochanter and shaft which is a trochanteric femoral nail from the old fixation which is solid and healed. Patient will unlikely have a good functional result with non operative treatment. If the fracture does eventually heal in this position she will have some limitation of motion and hip impingement and likely some chronic pain and likely osteoarthritis develop in the hip. Current treatment options may be open reduction internal fixation of acetabular fracture or potentially having hip replacement surgery which would require removing the hardware and having an acetabulum component that would even be custom-made or PA cage or bridging type implant that could bridge the defects or possible combination with internal fixation and acetabular fixation. At this time there is no one in our institution and on the [facility] that is going to perform this procedure. We could either refer her out to a trauma center or possibly send her images to one of the local trauma centers to have a trauma surgeon look at the images and the decide best treatment option for her. At the present time she should be nonweightbearing left lower extremity and new x-rays ordered for baseline and would recommend that pain management consult to manage her chronic pain. Medication Reconciliation New Medications: Cholecalciferol (Vitamin D3) 2,000 Unit Cap 1 CAP PO DAILY for 30 Days, #30 CAP 3 Refills Ergocalciferol (Drisdol) 50,000 Unit Cap 1 TAB PO UD, #1 TAB weekly x 12 Folic Acid (Folvite) 1 Mg Tab 1 MG PO DAILY, #1 TAB Thiamine Hcl (B-1) 100 Mg Tab 1 TAB PO DAILY, #1 TAB Hydromorphone HCl (Hydromorphone HCl) 2 Mg Tab 2 MG PO QID PRN for Pain, #1 TAB Misoprostol (Misoprostol) 100 Mcg Tab 100 MCG PO QID, #1 TAB Nitrofurantoin Monohyd Macrocr (Nitrofurantoin Monohydrat) 100 Mg Cap 100 MG PO BID, #4 CAP Pantoprazole (Pantoprazole Sodium) 40 Mg Tab 40 MG PO BID, #1 TAB Continued Medications: Fentanyl (Duragesic) 50 Mcg Tdsy 50 MCG TD [id number] Hydroxyzine HCl (Hydroxyzine HCl) 10 Mg Tab 10 MG PO UD PRN for Anxiety Lorazepam (Ativan) 1 Mg Tab 1 MG PO Q4H PRN for Anxiety, TAB Ondansetron (Ondansetron HCl) 4 Mg Tab 4 MG PO Q6H PRN for Nausea [Pain Pump] () 1 EA INJ CONTINOUS CONCENTRATION: DOSE PER DAY: MORPHINE - 30.0 MG/ML MORPHINE - 3.498 MG/DAY FENTANYL - 400.0 MCG/ML FENTANYL - 46.64 MCG/DAY Discontinued Medications: Ciprofloxacin Hcl (Cipro) 500 Mg Tab 500 MG PO BID for 5 Days, #10 TAB Hydromorphone HCl (Hydromorphone HCl) 2 Mg Tab 2 MG PO BID PRN for Pain Naproxen (Aleve) 220 Mg Tab 220 MG PO UD PRN for Pain, TAB TAKE PER PACKAGE DIRECTIONS Discharge Exam Physical Exam: General Appearance: no apparent distress Eyes: EOMI ENT: hearing grossly normal Neck: trachea midline Respiratory/Chest: no respiratory distress, no accessory muscle use Extremities: + pertinent finding (painful ROM at L hip) 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 NSAIDs (probable culprit) stopped. --EtOH may also be partial culprit - discussed this with her in regards to cessation again Acute on chronic pain --difficult historian both due to just not giving details well, as well as pain- seeking behavior often clouding picture --initially concern was that the acute pain may have been due to withdrawal - had run out of dilauded that she'd been taking chronically a few days prior to admission - but once she was back on home meds, L hip pain continued to be severe, and severe with any motion. further she actually objectively appeared in pain, which frequently she does not (was tearful, at times writhing) --> despite negative xrays Ct checked showing acute acetabular fracture - see below acetabular fracture --also has multiple old pelvic fractures, but acute acetabular fracture appearing to be major culprit in her current pain. for transfer for ortho trauma interventions --will also need osteoporosis w/u // treatment (vitamin D 26.6 on 08/12, supplementation ordered) after discharge Portal HTN/ESLD --surprisingly no varices noted on current EGD --a year ago was coagulopathic, had bilirubin in mid 30's, pancytopenic --> was in hospitals/SNF setting for quite a while, unable to abuse EtOH, and liver has shown REMARKABLE improvement --went home from SNF setting and started drinking heavily again (loosely relates she drinks for pain and anxiety management) -- explained her recovery and how critical it is for life that she ceases drinking again --will be helpful that she'll almost certainly need SNF or rehab after discharge again Alcohol Abuse --no s/s withdrawal. roughly 2+ days since last drink (admitted late on , did not appear intoxicated at the time)(to the best i can recall she has not had much of any EtOH withdrawal syndromes in the past, certainly possible/ vigilance warranted, but not likely to occur at this time) Code status: Full Resus VTE: contraindicated considering active bleed Total Time Spent: Greater than 30 minutes This includes examination of the patient, discharge planning, medication reconciliation, and communication with other providers. Discharge Instructions Please refer to the electronic Patient Visit Report (Discharge Instructions) for additional information.
[2016-08-25] MEDS ORDERED: PRT40 PO (18:41)
[2016-08-25] MEDS ORDERED: MCRB100 PO (18:41)
[2016-08-25] MEDS ORDERED: CYT100 PO (18:41)
[2016-08-25] MEDS ORDERED: FOLI1TAB7 PO (18:41)
[2016-08-25] MEDS ORDERED: DLD2 PO (18:41)
[2016-08-25] MEDS ORDERED: THIA1TAB PO (18:41)
--- NOTE | 2016-08-25 18:43 | Discharge Instructions ---
Discharge Instructions Date of Service Aug 25, 2016. Admission Reason for Admission: Acute Pain Of Left Lower Extremity,Gi Bleed Discharge Discharge Diagnosis / Problem: acetabular fracture Discharge Goals Goal(s): Therapeutic intervention Activity Recommendations Activity Level: Bedrest (until seen by ortho) . Additional Information Patient informed of condition: Yes Advance Directives: No DNR: No Level of Care: Other Communicable Disease: No Prognosis: Other Instructions / Follow-Up Instructions / Follow-Up see medical discharge summary for further details Current Hospital Diet Patient's current hospital diet: Regular Diet Discharge Diet Recommended Diet: Regular Diet Procedures Procedures Performed: EGD Pending Studies Studies pending at discharge: no Medical Emergencies . Who to Call and When: Medical Emergencies: If at any time you feel your situation is an emergency, please call 911 immediately. . Non-Emergent Contact Non-Emergency issues call your: Primary Care Provider, Surgeon . . "Provider Documentation" section prepared by Bossman Martin. . Core Measure Problem Core Measures: None
[2016-08-25] MEDS ORDERED: ERGO50002 PO (18:49)
[2016-08-25] MEDS ORDERED: CHOL2000 PO (18:49)
[2016-08-25] MEDS ORDERED: HYDROmorphone INJ 1 MG/ML SYR IV ONE (19:00)
[2016-08-25] MEDS: GABAPENTIN 600MG Q12H DOSE PO SCH (20:19)
[2016-08-25 23:53] VITALS: BP 112/75; PULSE 93; TEMP 36.7; O2SAT 96
[2016-08-26] MEDS: CHECK FENTANYL PATCH PLACEMENT SCH ×2 (00:10→08:00)
[2016-08-26] MEDS: HYDROmorphone HCL 2 MG TAB PO PRN ×2 (00:32→06:33)
[2016-08-26] MEDS: LORAZEPAM 1 MG TAB PO PRN ×2 (00:32→06:33)
[2016-08-26 07:33] VITALS: BP 100/65; PULSE 78; TEMP 36.7; O2SAT 98
--- NOTE | 2016-08-26 07:53 | Progress Note ---
Progress Note Date of Service Aug 26, 2016. (Rebecca Ogden M.D.) Progress Note Patient remains on [facility], stable, awaiting insurance clearance for transfer to [place]. Discharge documents signed and ready. Pain is moderate today. Call with any changes. (Rebecca Ogden M.D.) chart reviewed, see addendum to discharge summary. insurance approval for transfer was the main cause of delay, again no emergency//no harm incurred. d/ w Dr Ogden, pt transferred before i was able to see her. (Bossman Martin, D.Anette.) Resident Tracking Resident Involvement: Resident Care Provided Care Provided: Adult Hospital Medicine (Rebecca Ogden M.D.)
[2016-08-26] MEDS: MISOPROSTOL 100 MCG TAB PO SCH (07:56)
[2016-08-26] MEDS: GABAPENTIN 600MG Q12H DOSE PO SCH (07:56)
[2016-08-26] MEDS: ONDANSETRON 4 MG TAB PO PRN (07:56)
[2016-08-26] MEDS: DICLOFENAC SOD 1% GEL 100 GM TUBE EXT SCH (07:56)
[2016-08-26] MEDS: PANTOprazole SOD 40 MG TAB PO SCH (07:56)
[2016-08-26] MEDS: NITROFURANTOIN MONOHYDRATE 100 MG CAP PO SCH (07:56)
[2016-08-26] MEDS: THIAMINE HCL INJ 100 MG in SYRINGE 9 ML IV SCH (07:57)
[2016-08-26] MEDS ORDERED: HYDROmorphone INJ 1 MG/ML SYR IV ONE (10:00)
--- NOTE | 2016-08-26 18:37 | Medical Student: [facility] ---
Med Student Progress Note Date of Service Aug 26, 2016. Subjective Overnight, the patient starting vomiting again. She vomited a total of 2 times since last night. This is possibly due to advancing her diet last night. She continues to be in severe left sided hip pain, 10/10, and unable to ambulate. She denies CROWELL, chest pain, SOB, abdominal pain, constipation or diarrhea. She will be transferred to [facility] today. Review of Systems Constitutional: No fever, No chills, No sweats Eyes: No worsening of vision ENT: No hearing loss Respiratory: No cough, No sputum, No wheezing, No shortness of breath Cardiac: No chest pain, No edema, No palpitations Abdomen: + vomiting, No pain, No nausea, No diarrhea, No constipation Musculoskeletal: + joint pain (left hip and knee pain ) Female : + dysuria, No urinary frequency Endo: No fatigue Skin: No rash, No itch Objective Vital Signs Date Time Temp Pulse Resp B/P (MAP) Pulse Ox O2 Delivery O2 Flow Rate FiO2 08/26/16 08:00 Room Air 08/26/16 07:33 36.7 78 17 100/65 (77) 98 Room Air 08/26/16 00:00 Room Air 08/25/16 23:53 36.7 93 20 112/75 (87) 96 Room Air 08/25/16 23:16 Room Air 08/25/16 20:00 Room Air LEFT PELVIS/UNILATERAL HIP 2-3VIEWS CLINICAL HISTORY: 51 years-old Female presenting with ACUTE PAIN OF LEFT LOWER EXTREMITY. TECHNIQUE: Frontal view of the pelvis and frontal and frog-leg lateral views of the left hip were obtained. COMPARISON: 08/11/2016. FINDINGS: Intramedullary kaylee with interlocking screw fixation of the left femoral neck and proximal metaphysis. An interlocking screw is noted in the proximal diaphysis. No hardware complication. Post traumatic deformity of the left hip with acetabular protrusion and deformities and chronic fractures of the left superior and inferior pubic rami. Fracture planes through the left pubic ring remain visible. The left femoral head does not demonstrate significant degenerative or posttraumatic changes. Hips congruent. Osteopenia. No acute osseous injury. A medical records custodian projects over the right lower quadrant with a small catheter coursing towards the lower lumbar region. IMPRESSION: 1. No acute osseous injury. 2. Posttraumatic and postsurgical changes of the left proximal femur and left hip joint. 3. Chronic left pubic ring fractures. 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 Saldana is a 51 year old female with a PMH significant for chronic pain (17 years), alcohol abuse (12 beers/day), alcoholic cirrhosis, anxiety, endometriosis, fibromyalgia, GERD, MS, h/o gastric bypass, h/o total hip arthroplasty, h/l of left knee surgery, h/o cholecystectomy, and h/o hysterectomy who presented on 08/23 with worsening left hip and left leg pain of 3 days duration in addition to a 2 day history of bloody diarrhea and black vomitus. Chest/abdominal X-ray was unremarkable except for non-obstructed abdominal bowel gas pattern. Serial troponins are negative and lactic acid was normal at 1.4. LFTs are elevated. It is most likely the GI bleed is due to NSAID gastropathy considering Naproxen 220 mg PO is one of her home medications. The etiology of her acute on chronic left hip/left leg pain is attributed to a complex left acetabulum fracture as seen on left hip CT today. Plan: GI bleed - dark emesis possibly d/t esophageal varices and bloody stool most likely d/t NSAID gastropathy or complication of gastric bypass surgery -GI recommendations appreciated -EGD by Dr. Kraus showed ulceration at gastrojejunal anastomosis and jejunojejunal anastomosis of Jeffy-en-Y gastrojejunostomy, no specimens collected -use misoprostol 100 mcg PO QID -continue pantoprazole 40 mg PO BID -Colonoscopy outpatient Acute on chronic pain - 2/2 to left complex acetabulum fracture -continue home pain management -Intrathecal pump - 3.498 mg morphine per day & 46.64 mg fentanyl per day -50 mcg fentanyl transdermal patch -2 mg hydromorphone BID -pain management recommendations appreciated -no change to intrathecal pump doses -suggest outpatient thoracic spine MRI with and without contrast in the outpatient setting to evaluate for catheter tip granuloma -keep current doses of fentanyl and hydromorphone -patient should consider ortho re-evaluation as outpatient -left hip CT showed comminuted complex acetabular fracture w/ fracture extending through acetabular roof as well as anterior, posterior and medial wu, chronic left pubic ring fractures, and acute on chronic left inferior pubic ring fractures with possible left sacral fracture -left hip X-ray showed kaylee in left femoral neck, chronic fractures in left superior and inferior pubic rami, no osseous injury, post-traumatic & post surgical changes of left proximal femur and hip -per ortho recommendations -current treatment options open reduction internal fixation of acetabular fracture vs hip replacement surgery -no one at [facility] will perform procedure -pt should continue to be nonweightbearing -transfer to [facility] for orthopedic surgery & management of acetabular fracture -continue cholecalciferol 2000 U daily -continue ergocalciferol 50,000 U daily Left lower extremity numbness & tingling - possibly exacerbation of MS vs cutaneous neuropathy from left hip arthroplasty vs lumbar radiculopathy -lumbar x-ray from 06/23/16 showed mild superior endplate central cavity at L3 and L4 which is slightly progressed, likely represent age-indeterminate compression deformities & old mild superior endplate compression fractures at T12 & L1 End stage liver disease - alcoholic cirrhosis - t bili 1.7, d bili 0.4, AST 52, ALT 42, and Alk phos 288. Albumin & PT normal. Although patient has alcoholic cirrhosis, patient is not in severe liver failure. -f/u with outpatient PCP -no varices on EGD Alcohol abuse - 12 beers/day -continue thiamine 100 mg PO daily on discharge -continue folic acid on discharge Anxiety -continue Lorazepam 1 mg q4hr PO -continue hydroxyzine 10 mg PO daily UTI - UA nonspecific but showed small leukocyte esterase, 10-30 WBC, and 1+ bacteria & patient having dysuria -most recent UTIs grew E coli & Klebsiella, these were sensitive to Nitrofurantoin -continue Nitrofurantoin 100 mg BID for 7 days total Constipation -resolved Nausea -continue Zofran 4 mg PO q6hr PRN Continued [facility] stay due to: inadequate oral pain control
[2016-08-27] MEDS ORDERED: GABAPENTIN 600MG X1 DOSE PO SCH (09:00)
== END 2016-08-26 10:30 | disposition short-term general hospital (02) | DRG 535 ==
LOC: EDBD 14:27 → C.EDA 14:30 → C.2T 18:07 → ENRESERV 18:28 → C.MS4W 08-24 11:47 → ENRESERV 08-24 12:00
PROVIDERS: ADMIT Family Medicine; ATTEND Family Medicine
PROC: 0DJ08ZZ Inspection of Upper Intestinal Tract, Via Natural or Artificial Opening Endoscopic (ICD-10-PCS; principal; 2016-08-25 10:29)
DX: S32.492A Other specified fracture of left acetabulum, initial encounter for closed fracture (principal); K25.4 Chronic or unspecified gastric ulcer with hemorrhage; K76.6 Portal hypertension; F11.20 Opioid dependence, uncomplicated; R82.90 Unspecified abnormal findings in urine; T39.395A Adverse effect of other nonsteroidal anti-inflammatory drugs [NSAID], initial encounter; W19.XXXA Unspecified fall, initial encounter; M81.0 Age-related osteoporosis without current pathological fracture; M85.88 Other specified disorders of bone density and structure, other site; R51 Headache; K70.40 Alcoholic hepatic failure without coma; K70.30 Alcoholic cirrhosis of liver without ascites; M79.7 Fibromyalgia; G35 Multiple sclerosis; D64.9 Anemia, unspecified; G89.4 Chronic pain syndrome; K21.9 Gastro-esophageal reflux disease without esophagitis; F10.10 Alcohol abuse, uncomplicated; F41.9 Anxiety disorder, unspecified; Z75.1 Person awaiting admission to adequate facility elsewhere; Z91.81 History of falling; Z98.84 Bariatric surgery status; Z87.891 Personal history of nicotine dependence; Z97.8 Presence of other specified devices; Z96.642 Presence of left artificial hip joint; Z79.899 Other long term (current) drug therapy

== ENCOUNTER 2017-03-16 10:22 | Inpatient (IN) | payer OTHER ==
[~2017-03-16] VITALS: Ht 165.1 cm; Wt 57.0 kg
[~2017-03-16 10:22] MED LIST changes: +CHOL2000 PO; -CIPR-255 PO; +CYT100 PO; -DLD/2 PO; +ERGO50002 PO; +HYDR2TAB3 PO; +MCRB100 PO; -NAPR1TAB9 PO; +PRT40 PO; +THIA1TAB PO
[2017-03-16] MEDS ORDERED: LORAZEPAM 2 MG/ML 1 ML VIAL IV STA ×3 (10:29→10:55)
[2017-03-16] MEDS ORDERED: MULTI-VITAMIN INFUSION INJ 10 ML, THIAMINE HCL INJ 100 MG, FoLIC ACID INJ 1 MG in SODIU... IV STA (10:37)
[2017-03-16 11:18] LABS: HEMATOCRIT 43.8 % (37-47); HEMOGLOBIN 15.8 g/dL (12.0-16.0); MEAN CELL VOLUME 87.6 fL (80-100); MEAN CORPUSCULAR HEMOGLOBIN 31.6 pg (25-34); MEAN CORPUSCULAR HGB CONC 36.1 g/dl (32-36); MEAN PLATELET VOLUME 9.1 fL (7.4-10.4); PLATELET COUNT 138 K/uL (130-400); RED CELL DISTRIBUTION WIDTH CV 15.6 % (11.5-14.5); RED CELL DISTRIBUTION WIDTH SD 48.4 fL (36.4-46.3); WHITE BLOOD COUNT 10.02 K/uL (4.8-10.8)
[2017-03-16 11:34] LABS: INR 1.1 (0.9-1.1); PTT PATIENT 23.3 SECONDS (21.0-31.0)
[2017-03-16 11:41] LABS: BASO % 0.2 %; BASO ABS # 0.02 K/uL (0-0.2); EOS % 0.1 %; EOS ABS # 0.01 K/uL (0-0.5); IG# 0.05 K/uL (0.00-0.02); LYMPH % 5.1 %; LYMPH ABS # 0.51 K/uL (1.2-3.4); NEUT % 91.1 %; NEUT ABS # 9.13 K/uL (1.4-6.5)
[2017-03-16 11:42] LABS: ALBUMIN 4.4 gm/dl (3.4-5.0); ALT/SGPT 35 U/L (12-78); BLOOD UREA NITROGEN 19 mg/dl (7-18); CALCIUM 9.2 mg/dl (8.5-10.1); CARBON DIOXIDE 18 mmol/L (21-32); CREATININE 0.98 mg/dl (0.60-1.20); GLUCOSE 184 mg/dl (70-99); POTASSIUM 3.5 mmol/L (3.5-5.1); SODIUM 131 mmol/L (136-145)
[2017-03-16 11:52] LABS: ALKALINE PHOSPHATASE 184 U/L (45-117); AST/SGOT 38 U/L (15-37); CKMB 1.6 ng/ml (0.5-3.6); TOTAL PROTEIN 8.4 gm/dl (6.4-8.2)
[2017-03-16 12:35] VITALS: O2SAT 97; BMI 20.5
[2017-03-16] MEDS: SODIUM CHLORIDE 0.9% 1000ML 1,000 ML IV SCH (13:29)
[2017-03-16] MEDS ORDERED: POLYETHYLENE (MIRALAX) 17 GM PACK PO PRN (13:30)
[2017-03-16] MEDS ORDERED: ALUMINUM/MAGNESIUM/SIMETH (MAALOX MAX) 30 ML UDC PO PRN (13:30)
[2017-03-16] MEDS ORDERED: GABAPENTIN 600 MG TAB PO SCH (13:30)
[2017-03-16] MEDS ORDERED: MAGNESIUM HYDROXIDE SUSP 30 ML UDC PO PRN (13:30)
[2017-03-16] MEDS ORDERED: MoRPHine SULFATE 2 MG/ML CARP IV PRN (13:30)
[2017-03-16] MEDS ORDERED: LORAZEPAM 1 MG TAB PO PRN (13:30)
[2017-03-16] MEDS ORDERED: NITROGLYCERIN 0.4 MG SL PER TAB CHARGE SL PRN (13:30)
--- NOTE | 2017-03-16 14:13 | DIAGNOSTIC IMAGING REPORT ---
L PELVIS/UNILATERAL HIP 2-3VIEWS CLINICAL HISTORY: 52 years-old Female presenting with leg pain. TECHNIQUE: Single frontal view of the pelvis and frontal and frog-leg lateral views of the left hip were obtained. COMPARISON: 08/25/2016. FINDINGS: Implanted pain pump in the right lower quadrant with coiled catheter projecting over the mid to lower abdomen, unchanged. Intramedullary nail fixation of the left femoral neck and metadiaphysis. An interlocking screw is noted in the proximal diaphysis. No periprosthetic fracture. Minimal lucency along the metaphyseal component measures less than 2 mm and is unchanged from prior. 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 Post traumatic changes of the left superior and inferior pubic rami, which have evolved in the interim. These are unchanged from prior. Bilateral hip joints congruent. Osteopenia. IMPRESSION: 1. Continued interval evolution of posttraumatic deformity of the left acetabulum and left pubic rami. Electronically signed by: Luis A Cali M.D. 03/16/2017 2:12 PM Dictated Date/Time: 03/16/2017 2:07 PM
[2017-03-16] MEDS ORDERED: PAIN PUMP INJ SCH (14:45)
[2017-03-16 14:53] VITALS: BP 115/74; PULSE 106; TEMP 37.5; O2SAT 98
[2017-03-16] MEDS ORDERED: HYDROmorphone HCL 2 MG TAB PO PRN (15:15)
--- NOTE | 2017-03-16 15:21 | History and Physical ---
History & Physical Date & Time of Service: Mar 16, 2017 at 13:44 Chief Complaint: Illness Primary Care Physician: Kevin Vera D.O. History of Present Illness Source: patient, clinic records, hospital records Patient is a 52 y/o female, with PMHx of anxiety, MS, fibromyalgia, alcoholic cirrhosis, and GERD, who presented to the ED via EMS due to concerns of alcohol withdrawal per caretakers. According to ED provider, patient was brought to ED with no acute events prior to arrival. Once here, she experienced a seizure and was treated w/ IV Ativan. Patient was postictal but shortly came to it. Currently, she is resting in bed. She complains of L hip pain- x-ray is pending. Patient states she was drinking roughly a 6 pack per day. She quit 3 days ago. States she hasn't been drinking "for that long," only roughly one week. However, diagnosis of alcoholic cirrhosis and past records in June 2016 report alcohol abuse. Patient denies any fever, chills, sweats, lightheadedness , dizziness, vision changes, CP, palpitations, edema, SOB, wheezing, cough, abdominal pain, nausea, vomiting, diarrhea, urinary symptoms, melena, numbness/ tingling, weakness, anxiety/depression, active bleeding, or new skin discoloration/changes. Past Medical/Surgical History Medical Problems: anxiety MS fibromyalgia chronic pain syndrome alcoholic cirrhosis alcohol abuse GERD Surgical Problems: (1) H/O gastric bypass Permanent Comment: 2000 Status: Resolved (2) H/O gastrostomy Permanent Comment: 10/26/14 Status: Resolved (3) H/O total hip arthroplasty Permanent Comment: 2012 Status: Resolved (4) History of cholecystectomy Permanent Comment: 10/26/14 Status: Resolved (5) History of total hysterectomy Permanent Comment: 1994 Status: Resolved Family History Cancer FHx: aneurysm FHx: stroke Social History Smoking Status: Former Smoker Drug Use: none Marital Status: Housing status: lives alone, [facility] Occupational Status: unemployed Immunizations History of Influenza Vaccine: Unknown History of Tetanus Vaccine?: Unknown History of Pneumococcal: Unknown History of Hepatitis B Vaccine: Unknown Multi-Drug Resistant Organisms History of MDRO: No Allergies Coded Allergies: Clarithromycin (Verified Allergy, Intermediate, HIVES, 03/16/17) Aspirin (Verified Allergy, Mild, 03/16/17) Tramadol (Verified Allergy, Mild, 03/16/17) Oxaprozin (Verified Allergy, Unknown, 03/16/17) Home Medications Scheduled Cholecalciferol (Vitamin D3), 1 CAP PO DAILY Ergocalciferol (Drisdol), 1 TAB PO UD Thiamine Hcl (B-1), 1 TAB PO DAILY [Pain Pump], 1 EA INJ CONTINOUS Scheduled PRN Hydromorphone HCl (Hydromorphone HCl), 2 MG PO QID PRN for Pain Lorazepam (Ativan), 1 MG PO Q4H PRN for Anxiety Physical Exam Vital Signs Date Time Temp Pulse Resp B/P (MAP) Pulse Ox O2 Delivery O2 Flow Rate FiO2 03/16/17 13:19 100 03/16/17 12:35 97 Room Air 03/16/17 12:04 107 20 145/91 97 Room Air 03/16/17 10:39 110 03/16/17 10:36 36.8 109 26 129/95 95 Room Air General Appearance: no apparent distress, + thin Head: normocephalic, atraumatic Eyes: PERRL ENT: hearing grossly normal Neck: supple Respiratory/Chest: lungs clear, no respiratory distress, no accessory muscle use Cardiovascular: regular rate, rhythm Abdomen/GI: normal bowel sounds, non tender, soft Back: normal inspection Extremities/Musculoskelatal: no calf tenderness, no pedal edema Neurologic/Psych: no motor/sensory deficits, alert, oriented x 3, + depressed affect Skin: normal color, warm/dry, no rash Diagnostics Laboratory Results Results Past 24 Hours Test 03/16/17 10:29 03/16/17 11:02 03/16/17 12:46 Range/Units White Blood Count 10.02 4.8-10.8 K/uL Red Blood Count 5.00 4.2-5.4 M/uL Hemoglobin 15.8 12.0-16.0 g/dL Hematocrit 43.8 37-47 % Mean Corpuscular Volume 87.6 80-100 fL Mean Corpuscular Hemoglobin 31.6 25-34 pg Mean Corpuscular Hemoglobin Concent 36.1 32-36 g/dl Platelet Count 138 130-400 K/uL Mean Platelet Volume 9.1 7.4-10.4 fL Neutrophils (%) (Auto) 91.1 % Lymphocytes (%) (Auto) 5.1 % Monocytes (%) (Auto) 3.0 % Eosinophils (%) (Auto) 0.1 % Basophils (%) (Auto) 0.2 % Neutrophils # (Auto) 9.13 1.4-6.5 K/uL Lymphocytes # (Auto) 0.51 1.2-3.4 K/uL Monocytes # (Auto) 0.30 0.11-0.59 K/uL Eosinophils # (Auto) 0.01 0-0.5 K/uL Basophils # (Auto) 0.02 0-0.2 K/uL RDW Standard Deviation 48.4 36.4-46.3 fL RDW Coefficient of Variation 15.6 11.5-14.5 % Immature Granulocyte % (Auto) 0.5 % Immature Granulocyte # (Auto) 0.05 0.00-0.02 K/uL Prothrombin Time 11.2 9.0-12.0 SECONDS Prothromb Time International Ratio 1.1 0.9-1.1 Activated Partial Thromboplast Time 23.3 21.0-31.0 SECONDS Partial Thromboplastin Ratio 0.9 Sodium Level 131 136-145 mmol/L Potassium Level 3.5 3.5-5.1 mmol/L Chloride Level 96 98-107 mmol/L Carbon Dioxide Level 18 21-32 mmol/L Anion Gap 16.0 3-11 mmol/L Blood Urea Nitrogen 19 7-18 mg/dl Creatinine 0.98 0.60-1.20 mg/dl Estimated GFR () 76.3 Estimated GFR (Non- 65.9 BUN/Creatinine Ratio 19.4 10-20 Random Glucose 184 70-99 mg/dl Lactic Acid Level 6.0 0.4-2.0 mmol/L Calcium Level 9.2 8.5-10.1 mg/dl Magnesium Level 2.5 1.8-2.4 mg/dl Total Bilirubin 5.6 0.2-1 mg/dl Aspartate Amino Transf (AST/SGOT) 38 15-37 U/L Alanine Aminotransferase (ALT/SGPT) 35 12-78 U/L Alkaline Phosphatase 184 45-117 U/L Total Creatine Kinase 93 26-192 U/L Creatine Kinase MB 1.6 0.5-3.6 ng/ml Creatine Kinase MB Ratio 1.7 0-3.0 Troponin I < 0.015 0-0.045 ng/ml Total Protein 8.4 6.4-8.2 gm/dl Albumin 4.4 3.4-5.0 gm/dl Globulin 4.0 2.5-4.0 gm/dl Albumin/Globulin Ratio 1.1 0.9-2 Thyroid Stimulating Hormone (TSH) 2.850 0.300-4.500 uIu/ml Ethyl Alcohol mg/dL < 3.0 0-3 mg/dl Ammonia < 10.0 11-32 umol/L Microbiology Results 03/16/17 Blood Culture, Received Pending 03/16/17 Blood Culture, Received Pending EKG LINDSAY OROZCO ID:[id number] 16-MAR-2017 10:48:55 [facility] Poor data quality, interpretation may be adversely affected Sinus tachycardia Anteroseptal infarct , age undetermined Abnormal ECG When compared with ECG of 11-AUG-2016 22:11, Anteroseptal infarct is now Present Non-specific change in ST segment in Lateral leads 25mm/s 10mm/mV 150Hz 8.0 SP2 12SL 241 MILEY: 3 Referred by: UNKNOWN Unconfirmed Vent. rate 112 BPM OR interval 170 ms QRS duration 90 ms QT/QTc 358/488 ms P-R-T axes 52 -12 72 1965 (52 yr) Female 70in 1lb Room: Loc:15 Estimator Printing Plate Making:CHARI Felipe ind: Impression Assessment and Plan Patient is a 52 y/o female, with PMHx of anxiety, MS, fibromyalgia, alcoholic cirrhosis, and GERD, who presented to the ED via EMS due to concerns of alcohol withdrawal per caretakers. Seizure, likely secondary to alcohol withdrawal, h/o alcohol cirrhosis: - Admit to tele for cardiac monitoring - O2 protocol - Trend cardiac enzymes - Follow EKG QAM and PRN with chest pain - Seizure precautions - Alcohol withdrawal protocol- Gabapentin, Ativan, IV daily banana bag - Check b12/folate - Continue Thiamine supplement - Lactic acidosis, likely secondary to seizure- no s/s of infection, UA and BCx pending- repeat q6 hrs - Drug screen pending; alcohol level < 3.0 - Ammonia level 10; TSH WNL L hip pain: X-ray pending Anxiety: Hold Ativan 1 mg q4 hrs PRN due to alcohol protocol as above MS, fibromyalgia, chronic pain w/ indwelling pain pump: Decrease Dilaudid 2 mg PO QID PRN at this time to 1 mg q6 hrs PRN pain 7-10 GI prophylaxis: Protonix daily DVT prophylaxis: Heparin SQ BID Code status: LEVEL I, FULL Dispo: From home, has [facility]- and PT/OT consulted Level of Care Telemetry Advanced Directives Existing Living Will: No Existing Power of Waiter/Waitress Third Class: No Resuscitation Status FULL RESUSCITATION VTE Prophylaxis VTE Risk Assessment Done? Y/N: Yes Risk Level: Moderate Given or contraindicated: Unfractionated heparin SQ Reviewed: Pt Seen/Exam by Me History Pt states she is tired but no further seizure episodes. She has had alcohol withdrawal seizures in the past. She is eating dinner and feels a bit nauseated. She states she has not eaten much the last few days due to her withdrawal sx. No chest pain or SOB. Nursing reports no new seizure activity. Agree with HPI/ROS as noted by PA. General Appearance: no apparent distress, thin Eye Exam: bilateral eye normal inspection, bilateral eye other (normal sclera) Respiratory: normal breath sounds, no respiratory distress Cardiovascular: normal peripheral pulses, regular rate, rhythm Gastrointestinal: non tender, soft Extremities: non-tender, no pedal edema Neurologic/Psychiatric: alert, oriented x 3 Skin Characteristics: normal color, warm/dry Assessment/Plan Agree with plan as outlined above Seizures, likely related to EtOH withdrawal Pt is about 72 hours from her last drink Hx of same EtOH level on arrival to the ED was neg EtOH withdrawal protocol Other issues are stable Pt lives alone
[2017-03-16] MEDS: HYDROmorphone HCL 2 MG TAB PO PRN (15:44)
[2017-03-16] MEDS ORDERED: FENTANYL INFIL PRN (15:45)
[2017-03-16] MEDS ORDERED: MORPHINE INFIL PRN (15:45)
--- NOTE | 2017-03-16 15:48 | EMERGENCY ROOM VISIT NOTE ---
ED Visit Note First contact with patient: 10:29 I have personally evaluated this patient examined her and reviewed the pertinent labs and data. I have discussed the case with Héctor Ayala, the physician assistant pastry chef and agree with the plan. Please refer to the PA note. This patient was seen by Héctor and presented after apparent alcohol withdrawal was having a seizure. I was initially in with a critically ill patient and saw the patient promptly after that. By that time, the patient was no longer seizing and we did give the patient IV Ativan as well as a banana bag apparently there is an alcohol and substance abuse history and this likely may have been from withdrawal. Lactic acid was elevated at 6 which I think was most likely from a seizure rather than infection although that would still be potential though she is afebrile. here she is now awake and has a nonfocal neurologic exam. She will be admitted for further treatment and monitoring and evaluation.
[2017-03-16] MEDS ORDERED: GABAPENTIN 1200MG LOADING DOSE PO ONE (16:00)
[2017-03-16] MEDS: THIAMINE HCL 100 MG TAB PO SCH (16:07)
--- NOTE | 2017-03-16 16:26 | EMERGENCY ROOM VISIT NOTE ---
History First contact with patient: 10:29 Chief Complaint: ILLNESS Stated Complaint: ALCOHOL WITHDRAWL, SEIZURE History of Present Illness The patient is a 52 year old female who presents to the Emergency Room via ambulance with no stated complaints as she is seizing upon my entrance into the exam room and the history is very limited however prehospital personnel were able to note that they were called to her residence when the patient's caregiver /home health nurse felt as though she is experiencing alcohol withdrawal therefore called 911 and when the ambulance picked her up she was okay but nonverbal and when she made it to the room here in the hospital she began to seize. Review of Systems A complete 10-point Review of Systems was discussed with the patient, with pertinent positives and negatives listed in the History of Present Illness. All remaining Review of Systems questions can be considered negative unless otherwise specified. (obtained once alert and oriented after seizure) Past Medical/Surgical History Medical Problems: (1) Acute pain of left lower extremity (2) TYRONE (acute kidney injury) (3) Alcohol withdrawal (4) Altered mental state (5) Anemia (6) Anxiety (7) Bacteremia (8) Chronic alcoholic liver disease (9) Chronic back pain (10) Endometriosis (11) Fall (12) Fibromyalgia (13) Fungemia (14) GERD (gastroesophageal reflux disease) (15) GI bleed (16) Hyperkalemia (17) Hypokalemia (18) Liver encephalopathy (19) Metabolic acidosis (20) Multiple Sclerosis (21) Pneumonia (22) Presence of intrathecal pump (23) Rhabdomyolysis (24) Seizure (25) UTI (urinary tract infection) Surgical Problems: (1) H/O gastric bypass (2) H/O gastrostomy (3) H/O total hip arthroplasty (4) History of cholecystectomy (5) History of total hysterectomy Family History Cancer FHx: aneurysm FHx: stroke Social History Smoking Status: Former Smoker Alcohol Use: heavy Drug Use: none Marital Status: Housing Status: lives alone Occupation Status: unemployed Current/Historical Medications Scheduled Cholecalciferol (Vitamin D3), 1 CAP PO DAILY Ergocalciferol (Drisdol), 1 TAB PO UD Thiamine Hcl (B-1), 1 TAB PO DAILY [Pain Pump], 1 EA INJ CONTINOUS Scheduled PRN Hydromorphone HCl (Hydromorphone HCl), 2 MG PO QID PRN for Pain Lorazepam (Ativan), 1 MG PO Q4H PRN for Anxiety Physical Exam Vital Signs Date Time Temp Pulse Resp B/P (MAP) Pulse Ox O2 Delivery O2 Flow Rate FiO2 03/16/17 13:19 100 03/16/17 12:35 97 Room Air 03/16/17 12:04 107 20 145/91 97 Room Air 03/16/17 10:39 110 03/16/17 10:36 36.8 109 26 129/95 95 Room Air Physical Exam VITAL SIGNS - Vital signs and nursing notes were reviewed. Stable. GENERAL -52-year-old female appearing her stated age who is in no acute distress. Communicates well with provider and answers questions appropriately. SKIN - Without rashes. HEAD - NC/AT. EYES - pupils are dilated. EARS - No deformities of external structures noted on gross examination bilaterally. No pain elicited with palpation of the tragus bilaterally. External auditory canals without discharge or otorrhea. Tympanic membranes pearly salas without retraction or bulging. No fluid or purulent material visualized behind the TM. Handle of malleus, umbo, cone of light, pars tensa/ flaccid all easily visualized. NOSE - Midline and without cyanosis. No epistaxis or purulent drainage noted. MOUTH/OROPHARYNX - Without perioral cyanosis. Buccal mucosa pink and moist and without leukoplakia. Tongue midline with equal elevation of palate bilaterally. No tonsillar hypertrophy, erythema, or exudates noted. Fair dentition noted. NECK - Neck with FROM. LUNGS - Chest wall symmetric without accessory muscle use, intercostals retractions, or central cyanosis. Normal vesicular breath sounds CTA B/L. No wheezes, rales, or rhonchi appreciated. CARDIAC - RRR with S1/S2. No murmur, rubs, or gallops appreciated. ABDOMEN - Abdominal contour normal without pulsations or visible masses. BS normoactive all four quadrants. No tenderness, palpable masses, hepatosplenomegaly, or ascites noted. EXTREMITIES - No clubbing or peripheral cyanosis. No pretibial edema present. Hip tenderness noted anteriorly on the left. +5/5 strength noted in UE/LE bilaterally. NEUROLOGIC - Cranial nerves II through XII grossly intact. Sensory intact to light touch throughout. (Upon repeat examination) PSYCH - A&Ox3 and cooperates fully with examiner (upon repeat examination). Pt is very pleasant and interacts well with examiner. Medical Decision & Procedures ER Provider Diagnostic Interpretation: L PELVIS/UNILATERAL HIP 2-3VIEWS CLINICAL HISTORY: 52 years-old Female presenting with leg pain. TECHNIQUE: Single frontal view of the pelvis and frontal and frog-leg lateral views of the left hip were obtained. COMPARISON: 08/25/2016. FINDINGS: Implanted pain pump in the right lower quadrant with coiled catheter projecting over the mid to lower abdomen, unchanged. Intramedullary nail fixation of the left femoral neck and metadiaphysis. An interlocking screw is noted in the proximal diaphysis. No periprosthetic fracture. Minimal lucency along the metaphyseal component measures less than 2 mm and is unchanged from prior. 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 Post traumatic changes of the left superior and inferior pubic rami, which have evolved in the interim. These are unchanged from prior. Bilateral hip joints congruent. Osteopenia. IMPRESSION: 1. Continued interval evolution of posttraumatic deformity of the left acetabulum and left pubic rami. Electronically signed by: Luis A Cali M.D. 03/16/2017 2:12 PM Dictated Date/Time: 03/16/2017 2:07 PM Laboratory Results 03/16/17 11:02 Red Blood Count 5.00, Mean Corpuscular Volume 87.6, Mean Corpuscular Hemoglobin 31.6, Mean Corpuscular Hemoglobin Concent 36.1, Mean Platelet Volume 9.1, Neutrophils (%) (Auto) 91.1, Lymphocytes (%) (Auto) 5.1, Monocytes (%) (Auto) 3.0, Eosinophils (%) (Auto) 0.1, Basophils (%) (Auto) 0.2, Neutrophils # (Auto) 9.13, Lymphocytes # (Auto) 0.51, Monocytes # (Auto) 0.30, Eosinophils # (Auto) 0.01, Basophils # (Auto) 0.02 03/16/17 11:02 Test 03/16/17 10:29 03/16/17 11:02 03/16/17 12:46 03/16/17 13:29 White Blood Count 10.02 K/uL (4.8-10.8) Red Blood Count 5.00 M/uL (4.2-5.4) Hemoglobin 15.8 g/dL (12.0-16.0) Hematocrit 43.8 % (37-47) Mean Corpuscular Volume 87.6 fL (80-100) Mean Corpuscular Hemoglobin 31.6 pg (25-34) Mean Corpuscular Hemoglobin Concent 36.1 g/dl (32-36) Platelet Count 138 K/uL (130-400) Mean Platelet Volume 9.1 fL (7.4-10.4) Neutrophils (%) (Auto) 91.1 % Lymphocytes (%) (Auto) 5.1 % Monocytes (%) (Auto) 3.0 % Eosinophils (%) (Auto) 0.1 % Basophils (%) (Auto) 0.2 % Neutrophils # (Auto) 9.13 K/uL (1.4-6.5) Lymphocytes # (Auto) 0.51 K/uL (1.2-3.4) Monocytes # (Auto) 0.30 K/uL (0.11-0.59) Eosinophils # (Auto) 0.01 K/uL (0-0.5) Basophils # (Auto) 0.02 K/uL (0-0.2) RDW Standard Deviation 48.4 fL (36.4-46.3) RDW Coefficient of Variation 15.6 % (11.5-14.5) Immature Granulocyte % (Auto) 0.5 % Immature Granulocyte # (Auto) 0.05 K/uL (0.00-0.02) Prothrombin Time 11.2 SECONDS (9.0-12.0) Prothromb Time International Ratio 1.1 (0.9-1.1) Activated Partial Thromboplast Time 23.3 SECONDS (21.0-31.0) Partial Thromboplastin Ratio 0.9 Anion Gap 16.0 mmol/L (3-11) Estimated GFR () 76.3 Estimated GFR (Non- 65.9 BUN/Creatinine Ratio 19.4 (10-20) Lactic Acid Level 6.0 mmol/L (0.4-2.0) Calcium Level 9.2 mg/dl (8.5-10.1) Magnesium Level 2.5 mg/dl (1.8-2.4) Total Bilirubin 5.6 mg/dl (0.2-1) Aspartate Amino Transf (AST/SGOT) 38 U/L (15-37) Alanine Aminotransferase (ALT/SGPT) 35 U/L (12-78) Alkaline Phosphatase 184 U/L (45-117) Total Creatine Kinase 93 U/L (26-192) Creatine Kinase MB 1.6 ng/ml (0.5-3.6) Creatine Kinase MB Ratio 1.7 (0-3.0) Troponin I < 0.015 ng/ml (0-0.045) Total Protein 8.4 gm/dl (6.4-8.2) Albumin 4.4 gm/dl (3.4-5.0) Globulin 4.0 gm/dl (2.5-4.0) Albumin/Globulin Ratio 1.1 (0.9-2) Thyroid Stimulating Hormone (TSH) 2.850 uIu/ml (0.300-4.500) Ethyl Alcohol mg/dL < 3.0 mg/dl (0-3) Ammonia < 10.0 umol/L (11-32) Medications Administered Medications (Trade) Dose Ordered Sig/Flori Route Start Time Stop Time Status Last Admin Dose Admin Multivitamins 10 ml/Thiamine HCl 100 mg/Folic Acid 1 mg/Sodium Chloride 1,011.2 ml @ 500 mls/ hr Q2H2M STAT IV 03/16/17 10:37 03/16/17 12:38 DC 03/16/17 11:24 500 MLS/HR Lorazepam (Ativan Inj) 1 mg NOW STAT IV 03/16/17 10:55 03/16/17 10:56 DC 03/16/17 11:25 1 MG Sodium Chloride 1,000 ml @ 100 mls/hr Q10H IV 03/16/17 13:29 04/15/17 13:28 03/16/17 13:29 100 MLS/HR Thiamine HCl (Vitamin B-1 Tab) 100 mg Q24H PO 03/16/17 13:29 04/15/17 13:28 03/16/17 16:07 100 MG Medical Decision Patient was seen and evaluated as above pretty presents to us today with concerns over alcohol withdrawal, but upon my entrance into the exam room she was actively seizing. She stopped within seconds, but the other personnel note that this could've been 1 minute in total duration prior to me going to the examination room. I was called emergently however then did discuss the case with the attending physician. I ordered Ativan, and IV access was established. Seizure protocols were obtained. Patient was postictal, however I was unable to obtain a full history and physical examination. She was conversing well. It appears that she does have a history of drinking, approximate sixpack a day of beer and about 3 days ago tried to cut back and then ceased drinking alcohol completely. Bedside EKG per my interpretation reveals sinus tachycardia rate of 1 12 bpm, there is questionable change in the anterior septal leads, however given the patient rate there is likely to be of no acute etiology. Troponin negative. She has not been eating or drinking well, and today upon entrance was seizing. It appears that her caregiver/home health nurse at home feels as though she is experiencing alcohol withdrawal which I believe is accurate. She was also given a banana bag here. Labs reveal no leukocytosis or concerning anemia. Coags normal. Metabolic panel does reveal sodium low at 131, BUN high at 19 with creatinine okay 0.98. Glucose 186. Lactic acid is high at 6.0 however this was obtained after the seizure and I favor this likely to be the cause. Magnesium high at 2.5, bilirubin high at 5.6. AST high at 38. Alkaline phosphatase high at 184. Ammonia level normal. TSH normal. Alcohol negative with urine and drug screen pending. After discussing the case with the attending physician the decision was made to have the patient embedded for further evaluation and management of her suspected alcohol withdrawal. Impression Primary Impression: Alcohol withdrawal Additional Impression: Seizure Departure Information Dispostion Still a Patient Condition FAIR Referrals Kevin Vera D.O. (PCP) Forms WORK / SCHOOL INSTRUCTIONS, HOME CARE DOCUMENTATION FORM, IMPORTANT VISIT INFORMATION Patient Instructions [facility] Problem Qualifiers
[2017-03-16 19:36] VITALS: BP 114/77; PULSE 103; TEMP 37.5; O2SAT 96
[2017-03-16 19:49] LABS: CKMB 1.3 ng/ml (0.5-3.6)
[2017-03-16] MEDS: HEPARIN SOD 5000 UNIT/0.5 ML CARP SQ SCH (21:31)
[2017-03-16] MEDS: GABAPENTIN 600MG Q6H DOSE PO SCH (21:32)
[2017-03-16 23:07] VITALS: BP 119/83; PULSE 97; TEMP 37.2; O2SAT 97
[2017-03-17] VITALS (8 sets, daily range): BP systolic 89–118; BP diastolic 56–77; PULSE 75–92; TEMP 36.7–37.6; O2SAT 95–98; Ht 165.1 cm; Wt 57.0 kg
[2017-03-17] MEDS: SODIUM CHLORIDE 0.9% 1000ML 1,000 ML IV SCH ×3 (00:23→19:19)
[2017-03-17] MEDS: HYDROmorphone HCL 2 MG TAB PO PRN ×3 (00:25→18:34)
[2017-03-17] MEDS ORDERED: hydrOXYzine HCL 25 MG TAB PO ONE (01:15)
[2017-03-17] MEDS: GABAPENTIN 600MG Q6H DOSE PO SCH (03:55)
[2017-03-17 07:36] LABS: CALCIUM 7.7 mg/dl (8.5-10.1); CREATININE 0.59 mg/dl (0.60-1.20); HEMATOCRIT 33.8 % (37-47); HEMOGLOBIN 11.9 g/dL (12.0-16.0); MEAN CELL VOLUME 88.7 fL (80-100); MEAN CORPUSCULAR HEMOGLOBIN 31.2 pg (25-34); MEAN CORPUSCULAR HGB CONC 35.2 g/dl (32-36); MEAN PLATELET VOLUME 8.7 fL (7.4-10.4); PLATELET COUNT 77 K/uL (130-400); RED CELL DISTRIBUTION WIDTH CV 15.7 % (11.5-14.5); WHITE BLOOD COUNT 3.71 K/uL (4.8-10.8)
[2017-03-17] MEDS: HEPARIN SOD 5000 UNIT/0.5 ML CARP SQ SCH ×2 (08:11→19:18)
[2017-03-17] MEDS: MULTI-VITAMIN INFUSION INJ 10 ML, THIAMINE HCL INJ 100 MG, FoLIC ACID INJ 1 MG in SODIU... IV SCH (08:15)
[2017-03-17] MEDS ORDERED: ERGOCALCIFEROL 50,000 INTER.UNIT CAP PO SCH (09:00)
[2017-03-17] MEDS ORDERED: MULTI-VITAMIN INFUSION INJ 10 ML, THIAMINE HCL INJ 100 MG, FoLIC ACID INJ 1 MG in SODIU... IV SCH (09:00)
[2017-03-17] MEDS: CHOLECALCIFEROL 1000 INTER.UNIT TAB PO SCH (09:54)
[2017-03-17] MEDS: PANTOprazole SOD 40 MG TAB PO SCH (09:55)
[2017-03-17] MEDS: POTASSIUM CHLR 10 MEQ / WTR 10 MEQ in PREMIXED WATER 100 ML IV SCH ×4 (09:57→13:33)
[2017-03-17] MEDS ORDERED: FENTANYL 50 MCG/HR TDSY TD STA (10:54)
[2017-03-17] MEDS: GABAPENTIN 600MG Q8H DOSE PO SCH ×2 (12:31→19:18)
[2017-03-17] MEDS: THIAMINE HCL 100 MG TAB PO SCH (12:32)
[2017-03-17] MEDS: ONDANSETRON INJ 2 MG/ML 2 ML VIAL IV PRN (12:42)
--- NOTE | 2017-03-17 12:56 | Progress Note ---
Subjective Date of Service: Mar 17, 2017. Subjective Pt evaluation today including: conversation w/ patient Pt with ongoing hip pain that is at its usual. She states she usually has a 50mcg fentanyl patch to wear. She tolerated PO. Pt denies fever, SOB, chest pain, abd pain, n/v/c/d, LE pain or swelling. No further seizure episodes per pt or nurse. Pt states she follows with pain management in [place], sara Echavarria. She has a f/u appt with him on 03/24. Nursing states that pt informed them that her pain pump is empty. Problem List Medical Problems: (1) Alcohol dependence Status: Acute (2) Alcohol intoxication Status: Acute (3) Ankle fracture, lateral malleolus, closed Status: Acute (4) Chronic abdominal pain Status: Acute (5) Chronic anemia Status: Acute (6) Confusion Status: Acute (7) Failure of outpatient treatment Status: Acute (8) Fever Status: Acute (9) GI bleed Status: Acute (10) Head injury Status: Acute (11) Hyperbilirubinemia Status: Acute (12) Hypokalemia Status: Acute (13) Hypomagnesemia Status: Acute (14) Jaundice Status: Acute (15) Left elbow pain Status: Acute (16) Pelvic ring fracture Status: Acute (17) Urinary tract infection Status: Acute (18) Urinary tract infection Status: Acute (19) Vomiting Status: Acute Review of Systems All Other Systems: Reviewed and Negative Objective Vital Signs Date Time Temp Pulse Resp B/P (MAP) Pulse Ox O2 Delivery O2 Flow Rate FiO2 03/17/17 11:39 36.9 81 16 108/68 (81) 96 03/17/17 08:00 98 Room Air 03/17/17 07:27 36.8 76 16 92/56 (68) 98 Room Air 03/17/17 04:15 Room Air 03/17/17 04:10 37.2 76 18 89/59 (69) 95 Room Air 03/17/17 00:15 Room Air 03/16/17 23:07 37.2 97 16 119/83 (95) 97 Room Air 03/16/17 20:15 Room Air 03/16/17 19:36 37.5 103 16 114/77 (89) 96 Room Air 03/16/17 16:00 Room Air 1/31/18 14:53 37.5 106 18 115/74 (88) 98 Room Air 03/16/17 14:06 100 141/84 100 Room Air 03/16/17 13:19 100 Physical Exam Comments: General Appearance: no apparent distress, thin Eye Exam: bilateral eye normal inspection, bilateral eye other (normal sclera) Respiratory: normal breath sounds, no respiratory distress Cardiovascular: normal peripheral pulses, regular rate, rhythm Gastrointestinal: non tender, soft Extremities: non-tender, no pedal edema Neurologic/Psychiatric: alert, oriented x 3 Skin Characteristics: normal color, warm/dry Laboratory Results Last 24 Hours Test 03/16/17 12:46 03/16/17 17:10 03/16/17 17:11 03/16/17 19:00 Ammonia < 10.0 umol/L Vitamin B12 Level 938 pg/mL Folate > 24.00 ng/mL Lactic Acid Level 1.2 mmol/L Creatine Kinase MB Ratio Test 03/16/17 19:06 03/17/17 05:40 03/17/17 06:32 Creatine Kinase MB 1.3 ng/ml Troponin I < 0.015 ng/ml Urine Color ORANGE Urine Appearance CLOUDY Urine pH 6.5 Urine Specific Ryan 1.013 Urine Protein NEG Urine Glucose (UA) NEG Urine Ketones TRACE Urine Occult Blood TRACE Urine Nitrite NEG Urine Bilirubin NEG Urine Urobilinogen NEG Urine Leukocyte Esterase LARGE Urine WBC (Auto) >30 /hpf Urine RBC (Auto) 0-4 /hpf Urine Hyaline Casts (Auto) 0 /lpf Urine Epithelial Cells (Auto) 0-5 /lpf Urine Bacteria (Auto) 4+ Urine Opiates Screen POS Urine Methadone, Qualitative NEG Urine Barbiturates NEG Urine Phencyclidine (PCP) Level NEG Ur Amphetamine/Methamphetamine NEG MDMA (Ecstasy) Screen NEG Urine Benzodiazepines Screen NEG Urine Cocaine Metabolite NEG Urine Marijuana (THC) NEG White Blood Count 3.71 K/uL Red Blood Count 3.81 M/uL Hemoglobin 11.9 g/dL Hematocrit 33.8 % Mean Corpuscular Volume 88.7 fL Mean Corpuscular Hemoglobin 31.2 pg Mean Corpuscular Hemoglobin Concent 35.2 g/dl RDW Standard Deviation 50.0 fL RDW Coefficient of Variation 15.7 % Platelet Count 77 K/uL Mean Platelet Volume 8.7 fL Sodium Level 138 mmol/L Potassium Level 3.0 mmol/L Chloride Level 108 mmol/L Carbon Dioxide Level 23 mmol/L Anion Gap 7.0 mmol/L Blood Urea Nitrogen 15 mg/dl Creatinine 0.59 mg/dl Est Creatinine Clear Calc Drug Dose 96.1 ml/min Estimated GFR () 121.3 Estimated GFR (Non- 104.6 BUN/Creatinine Ratio 25.8 Random Glucose 103 mg/dl Calcium Level 7.7 mg/dl Magnesium Level 2.2 mg/dl Assessment and Plan Patient is a 52 y/o female, with PMHx of anxiety, MS, fibromyalgia, alcoholic cirrhosis, and GERD, who presented to the ED via EMS due to concerns of alcohol withdrawal per caretakers. Seizure, likely secondary to alcohol withdrawal, h/o alcohol cirrhosis: - Admit to tele for cardiac monitoring - O2 protocol - Trend cardiac enzymes - Follow EKG QAM and PRN with chest pain - Seizure precautions - Alcohol withdrawal protocol- Gabapentin, Ativan, IV daily banana bag - Check b12/folate - Continue Thiamine supplement - Lactic acidosis, likely secondary to seizure- no s/s of infection, UA and BCx pending- repeat q6 hrs - Drug screen pending; alcohol level < 3.0 - Ammonia level 10; TSH WNL L hip pain: X-ray neg for new issues, chronic issues are noted Anxiety: Hold Ativan 1 mg q4 hrs PRN due to alcohol protocol as above MS, fibromyalgia, chronic pain w/ indwelling pain pump: Decrease Dilaudid 2 mg PO QID PRN at this time to 1 mg q6 hrs PRN pain 7-10 Resume fentanyl patch. This was verified as filled 12/2017 via [facility] program Attempted to call [facility] regarding pain pump and awaiting call back Pharmacy is not familiar with pumps, awaiting call back from Dr. Baez regarding interrogation Has f/u with PM in Dr. [place] Prasad on 03/24 HypoK: replace and monitor GI prophylaxis: Protonix daily DVT prophylaxis: Heparin SQ BID Code status: LEVEL I, FULL Dispo: From home, has [facility]- CM and PT/OT consulted
[2017-03-17] MEDS: CHECK FENTANYL PATCH PLACEMENT SCH ×2 (15:33→23:18)
[2017-03-17] MEDS ORDERED: hydrOXYzine HCL 25 MG TAB PO PRN (15:45)
[2017-03-17] MEDS ORDERED: NURSING VERBAL MED ORDER ONE (15:45)
[2017-03-18] MEDS: GABAPENTIN 600MG Q8H DOSE PO SCH (03:22)
[2017-03-18] MEDS: HYDROmorphone HCL 2 MG TAB PO PRN ×2 (03:25→08:05)
[2017-03-18 03:41] VITALS: BP 95/57; PULSE 74; TEMP 36.8; O2SAT 96
[2017-03-18 06:13] LABS: HEMOGLOBIN 10.9 g/dL (12.0-16.0); MEAN CELL VOLUME 90.4 fL (80-100); MEAN CORPUSCULAR HEMOGLOBIN 30.8 pg (25-34); MEAN CORPUSCULAR HGB CONC 34.1 g/dl (32-36); RED CELL DISTRIBUTION WIDTH CV 15.7 % (11.5-14.5); RED CELL DISTRIBUTION WIDTH SD 50.9 fL (36.4-46.3); WHITE BLOOD COUNT 2.08 K/uL (4.8-10.8)
[2017-03-18 06:20] LABS: MEAN PLATELET VOLUME 8.8 fL (7.4-10.4); PLATELET COUNT 70 K/uL (130-400)
[2017-03-18 07:02] LABS: CALCIUM 7.8 mg/dl (8.5-10.1); CREATININE 0.48 mg/dl (0.60-1.20); POTASSIUM 3.7 mmol/L (3.5-5.1)
[2017-03-18 07:42] VITALS: BP 98/56; PULSE 71; TEMP 36.7; O2SAT 97
[2017-03-18 08:00] VITALS: O2SAT 97
[2017-03-18] MEDS: SODIUM CHLORIDE 0.9% 1000ML 1,000 ML IV SCH (08:05)
[2017-03-18] MEDS: CHOLECALCIFEROL 1000 INTER.UNIT TAB PO SCH (08:17)
[2017-03-18] MEDS: PANTOprazole SOD 40 MG TAB PO SCH (08:17)
[2017-03-18] MEDS: CHECK FENTANYL PATCH PLACEMENT SCH ×2 (08:19→15:51)
[2017-03-18] MEDS: MULTI-VITAMIN INFUSION INJ 10 ML, THIAMINE HCL INJ 100 MG, FoLIC ACID INJ 1 MG in SODIU... IV SCH (08:19)
[2017-03-18] MEDS: HEPARIN SOD 5000 UNIT/0.5 ML CARP SQ SCH ×2 (08:20→08:22)
[2017-03-18] MEDS: ONDANSETRON INJ 2 MG/ML 2 ML VIAL IV PRN (08:36)
--- NOTE | 2017-03-18 08:46 | Pain Management Consultation ---
Pain Management Consultation Date of Consultation Mar 18, 2017. Reason for Consultation Assess intrathecal pump History 52-year-old female admitted with alcohol withdrawal. Pain management consult to assess intrathecal pump. Patient's been having her intrathecal pump managed by an outside physician and filled with [facility]. She reports that the plan is to allow her pump to and transition to oral and transdermal medications. Past Medical/Surgical History (1) Chronic back pain (2) Fibromyalgia (3) Alcohol withdrawal (4) Seizure (5) Presence of intrathecal pump (6) Multiple Sclerosis (7) Anxiety (8) GERD (gastroesophageal reflux disease) (9) Endometriosis (10) History of cholecystectomy (11) History of total hysterectomy (12) H/O total hip arthroplasty (13) H/O gastric bypass (14) H/O gastrostomy (15) Altered mental state Family History Cancer FHx: aneurysm FHx: stroke Social / Work History Smoking Status: Never smoker Marital Status: Housing Status: lives alone, group home Occupation: unemployed Allergies Coded Allergies: Clarithromycin (Verified Allergy, Intermediate, HIVES, 03/16/17) Aspirin (Verified Allergy, Mild, 03/16/17) Tramadol (Verified Allergy, Mild, 03/16/17) Oxaprozin (Verified Allergy, Unknown, 03/16/17) Medications Current Inpatient Medications Medications (Trade) Dose Ordered Sig/Flori Route Start Time Stop Time Status Last Admin Dose Admin Sodium Chloride 1,000 ml @ 100 mls/hr Q10H IV 03/16/17 13:29 04/15/17 13:28 03/18/17 08:05 100 MLS/HR Thiamine HCl (Vitamin B-1 Tab) 100 mg Q24H PO 03/16/17 13:29 04/15/17 13:28 03/17/17 12:32 100 MG Lorazepam (Ativan Tab) PRN Dosing -Active Protocol UD PRN PO 03/16/17 13:30 04/15/17 13:29 Heparin Sodium (Porcine) (Heparin Sq 5000 Unit/0.5ml) 5,000 unit Q12 SQ 03/16/17 21:00 04/15/17 20:59 03/16/17 21:31 5,000 UNIT Al Hydrox/Mg Hydrox/Simethicone (Maalox Max Susp) 15 ml Q4H PRN PO 03/16/17 13:30 04/15/17 13:29 Magnesium Hydroxide (Milk Of Magnesia Susp) 30 ml Q12H PRN PO 03/16/17 13:30 04/15/17 13:29 Ondansetron HCl (Zofran Inj) 4 mg Q6H PRN IV 03/16/17 13:30 04/15/17 13:29 03/18/17 08:36 4 MG Nitroglycerin (Nitrostat Tab) 0.4 mg UD PRN SL 03/16/17 13:30 04/15/17 13:29 Morphine Sulfate (MoRPHine SULFATE INJ) 2 mg Q30M PRN IV 03/16/17 13:30 03/30/17 13:29 Polyethylene (Miralax Powder Packet) 17 gm DAILY PRN PO 03/16/17 13:30 04/15/17 13:29 Ergocalciferol (Vitamin D Cap) 50,000 interunit Q7D@0900 PO 03/17/17 09:00 04/16/17 08:59 03/17/17 08:13 50,000 INTERUNIT Cholecalciferol (Vitamin D Tab) 2,000 inter.unit DAILY PO 03/17/17 09:00 04/16/17 08:59 03/18/17 08:17 2,000 INTER.UNIT Pantoprazole Sodium (Protonix Tab) 40 mg QAM PO 03/17/17 09:00 03/22/17 08:59 03/18/17 08:17 40 MG Multivitamins 10 ml/Thiamine HCl 100 mg/Folic Acid 1 mg/Sodium Chloride 1,011.2 ml @ 500 mls/ hr DAILY@0900 IV 03/17/17 09:00 04/16/17 08:59 03/18/17 08:19 500 MLS/HR Gabapentin (Neurontin Tab) 600 mg Q12H PO 03/18/17 16:00 03/19/17 04:01 Hydromorphone HCl (Dilaudid Tab) 1 mg Q6H PRN PO 03/16/17 15:15 03/30/17 15:14 03/18/17 08:05 1 MG Gabapentin (Neurontin Tab) 600 mg Q24H PO 03/20/17 04:00 03/20/17 04:01 Morphine Sulfate (Morphine/ Fentanyl Pain Pump Patient'S Own) 1 ea UD PRN INFIL 03/16/17 15:45 04/15/17 15:44 Miscellaneous (Fentanyl Patch Remove & Waste) 1 ea Q3D@1115 N/A 03/20/17 11:15 03/20/17 11:16 Miscellaneous Information (Check Fentanyl Patch Placement) 1 ea QS N/A 03/17/17 16:00 03/20/17 15:59 03/18/17 08:19 1 EA Miscellaneous Information (Pending Order) 1 ea TODAY@1000 N/A 03/20/17 10:00 04/19/17 09:59 Hydroxyzine HCl (Vistaril Tab) 25 mg HS PRN PO 03/17/17 15:45 04/16/17 15:44 03/17/17 22:22 25 MG Trimethoprim/ Sulfamethoxazole (Septra Ds 800/ 160MG Tab) 1 tab Q12 PO 03/18/17 09:00 03/23/17 08:59 UNV Physical Exam Height & Weight: Height 5 feet, 5.00 inches. Weight 57.000 (Kilograms) 125 (Pounds) Last Vital Signs Documentation Date Time Temp Pulse Resp B/P (MAP) Pulse Ox O2 Delivery O2 Flow Rate FiO2 03/18/17 07:42 36.7 71 20 98/56 (70) 97 03/18/17 03:42 Room Air Laboratory Laboratory Results (Last CBC): 03/18/17 05:53 Assessment 1. Fibromyalgia 2. Chronic lumbago 3. History of intrathecal pump managed by outside physician Recommendations 1. After interrogating the patient's pump it appears that the reservoir became empty on 01/08/2017. There is no residual medication in her intrathecal pump. 2. She may continue to follow up with her outside pain prescriber Dr. Echavarria for continued management. 3. There is no need for her to follow up at the [facility] pain management office. 4. Please call if you have any questions
[2017-03-18] MEDS ORDERED: SULFAMETHOXAZOLE/TRIMETHOPRIM DS 800/160MG TAB PO SCH (09:00)
[2017-03-18] MEDS ORDERED: [UNRECOGNIZED DRUG - OTHER] (10:12)
[2017-03-18] MEDS ORDERED: SULF-302 PO (10:12)
--- NOTE | 2017-03-18 10:26 | Discharge Instructions ---
Discharge Instructions Date of Service Mar 18, 2017. Admission Reason for Admission: Alcohol Withdrawl, Seizure Discharge Discharge Diagnosis / Problem: Alcohol withdrawal seizure, UTI Discharge Goals Goal(s): Decrease discomfort, Improve function, Increase independence Activity Recommendations Activity Limitations: resume your previous activity . Instructions / Follow-Up Instructions / Follow-Up You should continue to avoid alcohol use You should follow up with your Pain Management doctor on 03/24 as scheduled prior You should follow up with your primary care doctor in the next week as well You have a urinary tract infection (UTI). You will need to take antibiotics for the next few days. I sent the prescription electronically to your pharmacy in [place]. Current Hospital Diet Patient's current hospital diet: Regular Diet Discharge Diet Recommended Diet: Regular Diet Pending Studies Studies pending at discharge: no Medical Emergencies . Who to Call and When: Medical Emergencies: If at any time you feel your situation is an emergency, please call 911 immediately. . Non-Emergent Contact Non-Emergency issues call your: Primary Care Provider, Specialist (Pain Management) . . "Provider Documentation" section prepared by Radha James. . VTE Core Measure Inpt VTE Proph given/why not?: Unfractionated heparin SQ
--- NOTE | 2017-03-18 10:27 | Discharge Summary ---
Discharge Summary Date of Service Mar 18, 2017. Discharge Summary Admission Date: Mar 16, 2017 at 13:43 Discharge Date: Mar 18, 2017 Discharge Disposition: Home with services Principal Diagnosis: Alcohol withdrawal seizures Problems/Secondary Diagnoses: MS Anxiety Fibromyalgia with chronic pain syndrome and pain pump GERD Cirrhosis s/p gastric bypass Immunizations: Have You Had Influenza Vaccine: Unknown History of Tetanus Vaccine?: Unknown History of Pneumococcal: Unknown History of Hepatitis B Vaccine: Unknown Consultations: Pain management Medication Reconciliation New Medications: Sulfamethoxazole-Trimethoprim (Smz-Tmp Ds) 1 Tab Tab 1 TAB PO Q12 for 3 Days, #5 TAB [Pending Order] () 1 EA EA 1 EA N/A TODAY@1000 for 1 Day, #1 PATCH Continued Medications: Cholecalciferol (Vitamin D3) 2,000 Unit Cap 1 CAP PO DAILY for 30 Days, #30 CAP 3 Refills Ergocalciferol (Drisdol) 50,000 Unit Cap 1 TAB PO UD, #1 TAB weekly x 12 Hydromorphone HCl (Hydromorphone HCl) 2 Mg Tab 2 MG PO QID PRN for Pain, #1 TAB Lorazepam (Ativan) 1 Mg Tab 1 MG PO Q4H PRN for Anxiety, TAB Thiamine Hcl (B-1) 100 Mg Tab 1 TAB PO DAILY, #1 TAB [Pain Pump] () 1 EA INJ CONTINOUS CONCENTRATION: DOSE PER DAY: MORPHINE - 30.0 MG/ML MORPHINE - 3.498 MG/DAY FENTANYL - 400.0 MCG/ML FENTANYL - 46.64 MCG/DAY Discharge Exam Pt has had no further seizure activity per herself and nursing. She has some nausea but is tolerating PO without issue. Pt has her ongoing chronic pain issues. When informed that she was stable for d/c home, she then noted that she had abd pain and requested to remain hospitalized. Pt denies fever, SOB, chest pain, c/d, LE pain or swelling. Physical Exam: General Appearance: no apparent distress, + thin Eyes: normal inspection, sclerae normal Respiratory/Chest: normal breath sounds, no respiratory distress Cardiovascular: regular rate, rhythm, no edema Abdomen / GI: soft, + tenderness (diffuse and stated by pt) Extremities: no calf tenderness, no pedal edema Neurologic/Psychiatric: alert, oriented x 3 Skin: normal color, warm/dry Hospital Course Patient is a 52 y/o female, with PMHx of anxiety, MS, fibromyalgia, alcoholic cirrhosis, and GERD, who presented to the ED via EMS due to concerns of alcohol withdrawal per caretakers. Seizure, likely secondary to alcohol withdrawal, h/o alcoholic cirrhosis and withdrawal seizures: - Admitted to tele for cardiac monitoring and has been stable in terms of HR. No further seizures Cardiac enzymes serially negative Pt was on alcohol withdrawal protocol- Gabapentin, Ativan, IV daily banana bag - B12/folate WNL - Continue Thiamine supplement - Drug screen + for opiates; alcohol level < 3.0 - Ammonia level 10; TSH WNL Lactic acidosis, likely secondary to seizure- no s/s of infection on admission, Blood cx neg Pt had no sx of UTI when questioned, however she did have a + urine cx Bactrim x3 days L hip pain: X-ray neg for new issues, chronic issues are noted Anxiety: Resume home medications MS, fibromyalgia, chronic pain w/ indwelling pain pump: Decrease Dilaudid 2 mg PO QID PRN at this time to 1 mg q6 hrs PRN pain 7-10 Resume fentanyl patch. This was verified as filled 12/2017 via [facility] program Pt states that her pain pump is empty. This was verified by Pain Management as having been empty since 01/08/17 Pt initially told me there was no plan regarding this pump, however then modified to state that they are trying pills and patches to see if her pain is controlled in this manner She has f/u with her outside PM provider on 03/24 I did not refill any of her pain medications HypoK: resolved I discussed pt's plan for maintaining sobriety at length. Both myself and DIANNA offered her multiple resources for inpt and outpt rehab and AA. Pt declined all of these options for various reasons and states she will be able to continue to abstain from alcohol without further assistance. Pt has had no further concerns for withdrawals and is outside of the withdrawal window. She has been tolerating PO without issue and her hypoK has resolved. Pt initially stated to me that she could not go home today as she would not have a ride and had no clothes for transport. CM contacted pt's son (SABRINA) who stated that he would be able to pickling operator pt after 2p and would bring her clothes. Shortly after being informed of this, pt called nursing for episode of emesis that was not witnessed and with minimal volume and further c/o abd pain. There is concern that she induced emesis in an effort to remain inpt status. Pt does have a UTI and this may lead to emesis if it was true emesis. She is stable for d/c home. Pt has home health via [facility], however she is on the verge of losing this benefit per CM due to her behavior with these providers. Unfortunately, I am very concerned that pt will resume alcohol use in an effort to self medicate, however she has declined all options offered to her. She is a high risk for readmission due to this. Total Time Spent: Greater than 30 minutes This includes examination of the patient, discharge planning, medication reconciliation, and communication with other providers. Discharge Instructions Please refer to the electronic Patient Visit Report (Discharge Instructions) for additional information. Follow-Up You should continue to avoid alcohol use You should follow up with your Pain Management doctor on 03/24 as scheduled prior You should follow up with your primary care doctor in the next week as well You have a urinary tract infection (UTI). You will need to take antibiotics for the next few days. I sent the prescription electronically to your pharmacy in [place]. Additional Copies To Zac Echavarria M.D.
[2017-03-18 12:14] VITALS: BP 101/65; PULSE 76; TEMP 37.1; O2SAT 96
[2017-03-18] MEDS ORDERED: NURSING VERBAL MED ORDER ONE (12:30)
[2017-03-18] MEDS ORDERED: ONDANSETRON 4MG OD TAB SL PRN (12:45)
[2017-03-18] MEDS: THIAMINE HCL 100 MG TAB PO SCH (12:49)
[2017-03-18 14:58] VITALS: BP 101/65; PULSE 76; TEMP 37.1; O2SAT 96
[2017-03-18 16:00] VITALS: O2SAT 96
[2017-03-18] MEDS ORDERED: GABAPENTIN 600MG Q12H DOSE PO SCH (16:00)
[2017-03-20] MEDS ORDERED: GABAPENTIN 600MG X1 DOSE PO SCH ×2 (04:00→16:00)
[2017-03-20] MEDS ORDERED: FENTANYL PATCH REMOVE & WASTE SCH (11:15)
== END 2017-03-18 17:30 | disposition home health service (06) | DRG 101 ==
LOC: EDBD 10:22 → C.EDA 10:23 → C.MED 13:43 → ENRESERV 13:51
PROVIDERS: ADMIT Family Medicine; ATTEND Family Medicine
DX: R56.9 Unspecified convulsions (principal); F10.230 Alcohol dependence with withdrawal, uncomplicated; E87.2 Acidosis; N39.0 Urinary tract infection, site not specified; M79.7 Fibromyalgia; G35 Multiple sclerosis; E87.6 Hypokalemia; Z96.649 Presence of unspecified artificial hip joint; F41.9 Anxiety disorder, unspecified; Z98.84 Bariatric surgery status; K70.30 Alcoholic cirrhosis of liver without ascites; K21.9 Gastro-esophageal reflux disease without esophagitis; M25.552 Pain in left hip; Z96.89 Presence of other specified functional implants

== ENCOUNTER 2017-05-09 11:05 | Emergency (ER) | payer OTHER ==
[~2017-05-09] VITALS: Ht 165.1 cm; Wt 57.0 kg
[~2017-05-09 11:05] MED LIST changes: -ATR10 PO; -CYT100 PO; -FNTTP50 TD; -MCRB100 PO; -ONDA4TAB9 PO; -PRT40 PO; +SULF-302 PO; +[UNRECOGNIZED DRUG - OTHER]
[2017-05-09 11:10] VITALS: TEMP 37; Ht 165.1 cm; Wt 57.0 kg
[2017-05-09] MEDS ORDERED: MoRPHine SULFATE 10 MG/ML CARP/VIAL IV STA (12:29)
[2017-05-09] MEDS ORDERED: ONDANSETRON INJ 2 MG/ML 2 ML VIAL IV STA (12:29)
[2017-05-09 12:35] LABS: BASO % 0.2 %; BASO ABS # 0.01 K/uL (0-0.2); EOS % 0.2 %; EOS ABS # 0.01 K/uL (0-0.5); HEMATOCRIT 42.5 % (37-47); HEMOGLOBIN 14.3 g/dL (12.0-16.0); IG# 0.01 K/uL (0.00-0.02); LYMPH % 12.6 %; LYMPH ABS # 0.54 K/uL (1.2-3.4); MEAN CELL VOLUME 90.4 fL (80-100); MEAN CORPUSCULAR HEMOGLOBIN 30.4 pg (25-34); MEAN CORPUSCULAR HGB CONC 33.6 g/dl (32-36); MEAN PLATELET VOLUME 9.5 fL (7.4-10.4); MONO % 8.4 %; MONO ABS # 0.36 K/uL (0.11-0.59); NEUT % 78.4 %; NEUT ABS # 3.37 K/uL (1.4-6.5); PLATELET COUNT 155 K/uL (130-400); RED CELL DISTRIBUTION WIDTH CV 15.6 % (11.5-14.5); RED CELL DISTRIBUTION WIDTH SD 52.2 fL (36.4-46.3)
[2017-05-09] MEDS ORDERED: OPTIRAY 320 IV PRN (12:45)
[2017-05-09 12:54] LABS: ALBUMIN 3.6 gm/dl (3.4-5.0); CALCIUM 8.9 mg/dl (8.5-10.1); CREATININE 0.48 mg/dl (0.60-1.20); POTASSIUM 3.9 mmol/L (3.5-5.1)
[2017-05-09 12:57] LABS: TOTAL PROTEIN 7.5 gm/dl (6.4-8.2)
[2017-05-09 13:50] VITALS: O2SAT 98
--- NOTE | 2017-05-09 15:00 | DIAGNOSTIC IMAGING REPORT ---
CT OF THE ABDOMEN AND PELVIS WITH CONTRAST CLINICAL HISTORY: Left upper quadrant and right lower quadrant abdominal pain with nausea, vomiting and diarrhea. Status post gastric bypass. COMPARISON STUDY: CT of the abdomen and pelvis October 26, 2015 and abdominal series August 23, 2016. TECHNIQUE: Following IV administration of 78 mL of Optiray-320, axial images of the abdomen and pelvis were obtained from the lung bases to the proximal femurs. Images were reviewed in the axial, sagittal, and coronal planes. IV contrast was administered without complication. A dose lowering technique was utilized adhering to the principles of ALARA. Oral contrast was administered. CT DOSE: 274.73 mGy.cm FINDINGS: Moderate splenomegaly is unchanged. Biliary ductal dilatation is unchanged and likely related to cholecystectomy. The patient is status post gastric bypass. There is no evidence for a bowel obstruction. There are also postoperative findings consistent with a right hemicolectomy. There is no bowel wall thickening. The adrenal glands, kidneys and pancreas are unremarkable with exception of a 4 m left renal calculus. There are no ureteral calculi although evaluation of the distal ureters is difficult due to streak artifact from a previous left femoral internal fixation. Old left inferior and superior pubic ring fractures are noted. There is also protrusio deformity of the left acetabulum with a fracture involving the medial and superior wu of the left acetabulum with callus formation. This fracture is likely chronic. There are old lumbar spine compression fractures. No pneumatosis, free air or portal venous gas is present. A right lower quadrant subcutaneous device is noted. IMPRESSION: 1. No acute process within the abdomen or pelvis. 2. Status post gastric bypass and right hemicolectomy. No bowel obstruction. 3. Stable splenic megaly. 4. 4 mm left renal calculus. 5. Protrusio deformity of the left acetabulum with a fracture involving the medial and superior wu of the left acetabulum with callus formation. This fracture is likely chronic. Electronically signed by: Benedict Vaughn M.D. 05/09/2017 2:59 PM Dictated Date/Time: 05/09/2017 2:45 PM
[2017-05-09] MEDS ORDERED: FENTANYL CITRATE INJ 50 MCG/1 ML 2 ML VIAL IV ONE (15:15)
[2017-05-09 15:58] VITALS: BP 129/93; PULSE 73
--- NOTE | 2017-05-09 21:36 | EMERGENCY ROOM VISIT NOTE ---
ED Visit Note First contact with patient: 12:21 Chief Complaint: Abdominal pain, nausea, vomiting and diarrhea. History of Present Illness: Ms. Saldana is a 52 year-old white female who is brought into the ED complaining of left upper quadrant and right lower quadrant abdominal pain, diarrhea, nausea and vomiting. Historically patient reports chronic alcohol liver disease, endometriosis, GI bleed, GERD and is status post hysterectomy, gastric bypass, and cholecystectomy. Patient reports a gradual onset her symptoms that started approximately 4 days ago. She reports initially she became nauseated and started having diarrhea. Her pain started approximately 1 day after her other symptoms. She reports all her symptoms have been constant. She reports initially she had 3-4 bile-like emesis for the first 3 days and now she is just dry heaving. He goes on to report 7-8 light brown watery stools every day since their onset. She reports she has been taking her prescribed antinausea medication and diarrhea medication without relief of these symptoms. Additionally as previously noted she reports she has been having left upper quadrant and right lower quadrant abdominal pain. These initially started off gradually and increase in intensity. She describes both of these areas of pain as a sharp and an occasional cramping sensation. She rates her discomfort 10/ 10. Her left upper quadrant abdominal pain is radiating into her back and her right lower quadrant pain is not radiating. Her pain worsens with palpation, vomiting/dry heaving and diarrhea. She has not identified any alleviating factors related to these pains. She is currently on fentanyl patches for chronic pain medication and reports no relief of her discomfort. Associated with the symptoms she reports she has been having chills but no butch fever, a decreased appetite, fatigue. Patient denies sweats, skin eruptions, skin color changes, upper respiratory tract symptoms, shortness of breath, chest pain, constipation, rectal bleeding, black/tarry stools, urinary symptoms, hematuria, vaginal bleeding, vaginal discharge. Review of Systems: As noted above in history of present illness. All body systems were reviewed and found to be negative as noted above. 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 (23) Rhabdomyolysis (24) Seizure (25) UTI (urinary tract infection) Surgical Problems: (1) H/O gastric bypass (2) H/O gastrostomy (3) H/O total hip arthroplasty (4) History of cholecystectomy (5) History of total hysterectomy Current Medications: Medications Dose Route/Sig Max Daily Dose Days Date Category Dose Instructions [Pending Order] 1 EA Ea 1 Ea N/A TODAY@1000 1 03/18/17 Rx Smz-Tmp Ds (Sulfamethoxazole-Trimethoprim) 1 Tab Tab 1 Tab PO Q12 3 03/18/17 Rx Vitamin D3 (Cholecalciferol) 2,000 Unit Cap 1 Cap PO DAILY 30 08/25/16 Rx Drisdol (Ergocalciferol) 50,000 Unit Cap 1 Tab PO UD 08/25/16 Rx weekly x 12 B-1 (Thiamine Hcl) 100 Mg Tab 1 Tab PO DAILY 08/25/16 Rx Hydromorphone HCl 2 Mg Tab 2 Mg PO QID PRN 08/25/16 Rx [Pain Pump] 1 Ea INJ CONTINOUS 08/11/16 Reported CONCENTRATION: DOSE PER DAY: MORPHINE - 30.0 MG/ML MORPHINE - 3.498 MG/DAY FENTANYL - 400.0 MCG/ML FENTANYL - 46.64 MCG/DAY Ativan (Lorazepam) 1 Mg Tab 1 Mg PO Q4H PRN 08/11/16 Reported Allergies to Medications: Aspirin, clarithromycin, tramadol, oxaprozin. Social History: Patient is unemployed; she lives in a nursing facility and feels safe in her home environment; she denies current tobacco use; she admits to alcohol abuse. Physical Examination: Vital Signs: Date Time Temp Pulse Resp B/P (MAP) Pulse Ox O2 Delivery O2 Flow Rate FiO2 05/09/17 15:58 73 20 129/93 Room Air 05/09/17 13:50 72 17 139/87 98 Room Air 05/09/17 12:50 71 16 143/99 97 05/09/17 11:10 37.0 94 16 131/113 98 Room Air GENERAL: 52-year-old female in mild to moderate distress due to pain, nontoxic- appearing, afebrile and hemodynamically stable. NEUROLOGICAL: Awake, alert and oriented to person, place and time. Answering questions appropriately and following commands. Normal gait. Good hand eye coordination. SKIN: Warm, dry and pink. No soft tissue eruptions or trauma noted. HEENT: Atraumatic and normocephalic. PERRLA. Sclera white and conjunctiva pink. Oral cavity moist and pink. Pharynx is nonerythematous or edematous. Speech normal. No lymphadenopathy. Trachea midline. No jugular venous distention. BACK: No tenderness over the bony spine. No CVA tenderness. THORAX: Lungs sounds are clear to auscultation and equal bilaterally with symmetrical chest wall. No wheezing, rales or rhonchi. No crepitus, tenderness , subcutaneous air or deformities noted. HEART: Regular rate and rhythm. No gallops, rubs or murmurs are appreciated. ABDOMEN: Flat and soft with mild tenderness in the left upper quadrant and right lower quadrant without signs of peritonitis. Positive bowel sounds in all quadrants. No guarding, rigidity or organomegaly. EXTREMITIES: Moves all extremities well on command and with purpose. All distal neurovascular statuses are intact and equal bilaterally. ED Course: Patient is assessed as noted above. Laboratory Testing: Test 05/09/17 11:25 05/09/17 12:10 Range/Units White Blood Count 4.30 4.8-10.8 K/uL Red Blood Count 4.70 4.2-5.4 M/uL Hemoglobin 14.3 12.0-16.0 g/dL Hematocrit 42.5 37-47 % Mean Corpuscular Volume 90.4 80-100 fL Mean Corpuscular Hemoglobin 30.4 25-34 pg Mean Corpuscular Hemoglobin Concent 33.6 32-36 g/dl Platelet Count 155 130-400 K/uL Mean Platelet Volume 9.5 7.4-10.4 fL Neutrophils (%) (Auto) 78.4 % Lymphocytes (%) (Auto) 12.6 % Monocytes (%) (Auto) 8.4 % Eosinophils (%) (Auto) 0.2 % Basophils (%) (Auto) 0.2 % Neutrophils # (Auto) 3.37 1.4-6.5 K/uL Lymphocytes # (Auto) 0.54 1.2-3.4 K/uL Monocytes # (Auto) 0.36 0.11-0.59 K/uL Eosinophils # (Auto) 0.01 0-0.5 K/uL Basophils # (Auto) 0.01 0-0.2 K/uL RDW Standard Deviation 52.2 36.4-46.3 fL RDW Coefficient of Variation 15.6 11.5-14.5 % Immature Granulocyte % (Auto) 0.2 % Immature Granulocyte # (Auto) 0.01 0.00-0.02 K/uL Sodium Level 138 136-145 mmol/L Potassium Level 3.9 3.5-5.1 mmol/L Chloride Level 107 98-107 mmol/L Carbon Dioxide Level 21 21-32 mmol/L Anion Gap 10.0 3-11 mmol/L Blood Urea Nitrogen 10 7-18 mg/dl Creatinine 0.48 0.60-1.20 mg/dl Est Creatinine Clear Calc Drug Dose 122.0 ml/min Estimated GFR () 129.8 Estimated GFR (Non- 112.0 BUN/Creatinine Ratio 20.4 10-20 Random Glucose 95 70-99 mg/dl Calcium Level 8.9 8.5-10.1 mg/dl Total Bilirubin 1.0 0.2-1 mg/dl Aspartate Amino Transf (AST/SGOT) 33 15-37 U/L Alanine Aminotransferase (ALT/SGPT) 34 12-78 U/L Alkaline Phosphatase 133 45-117 U/L Total Protein 7.5 6.4-8.2 gm/dl Albumin 3.6 3.4-5.0 gm/dl Globulin 3.9 2.5-4.0 gm/dl Albumin/Globulin Ratio 0.9 0.9-2 Lipase 101 73-393 U/L Urine Color YELLOW Urine Appearance CLEAR CLEAR Urine pH 7.5 4.5-7.5 Urine Specific [place] 1.005 1.000-1.030 Urine Protein NEG NEG Urine Glucose (UA) NEG NEG Urine Ketones NEG NEG Urine Occult Blood NEG NEG Urine Nitrite NEG NEG Urine Bilirubin NEG NEG Urine Urobilinogen NEG NEG Urine Leukocyte Esterase NEG NEG Patient was unable to provide a stool sample for testing. Contrast Abdominal/Pelvic CT: Was reviewed by myself and read by the radiologist showing no acute process within the abdomen or pelvis, status post gastric bypass and right hemicolectomy, no bowel obstruction, stable splenic megaly, 4 mm left renal calculus, Protrusion deformity of the left acetabulum with a fracture involving the medial and superior wu of the left acetabulum with callus formation; likely chronic. Patient was initially hydrated with normal saline and she received 6 mg of morphine IV for pain and 4 mg of Zofran. Patient was reassessed multiple times during her stay in the emergency department. Just prior to discharge patient reported that her pain was exacerbation and requested a different medication and she was given 25 mcg of fentanyl IV. Additionally patient reports she used up her last fentanyl patch and was not able to get a prescription filled until and requested an additional patch; I informed her I would not be able to do that due to these are chronic pain medications and she needed to stay within the limits of these prescriptions for her chronic disease. Patient was educated about today's findings and instructed on her treatment plan ; she verbalized understanding and agreement with this plan. Clinical Impression: Left upper quadrant and right lower quadrant abdominal pain. Nausea, vomiting and diarrhea. Decision-Making: Initially my differential diagnosis I considered gastritis, colitis, bowel obstruction, hepatitis, pancreatitis, ureter calculus, and other causes. Disposition: Patient discharged home in stable condition; prior to departure she was reassessed and subjectively reported she was feeling better and rated her discomfort 5/10. Initially she reported she had no additional vomiting or diarrhea while in the emergency department. Plan: Patient was encouraged to continue her current medications for pain, diarrhea and nausea and vomiting as prescribed. Patient was encouraged to stay well-hydrated with increased clear fluids. Patient was encouraged to contact her PCP and regional maintenance manager for follow-up care and treatment. Patient was encouraged to return the ED for worsening/uncontrolled pain, worsening vomiting, worsening diarrhea, bloody vomitus, bloody diarrhea, fevers or any new/concerning symptoms.
== END 2017-05-09 16:08 | disposition home or self-care (01) ==
LOC: EDBD 11:05 → C.EDC 11:06
DX: R10.12 Left upper quadrant pain (principal); R10.31 Right lower quadrant pain; R19.7 Diarrhea, unspecified; R11.2 Nausea with vomiting, unspecified; R16.1 Splenomegaly, not elsewhere classified; N20.0 Calculus of kidney; M95.8 Other specified acquired deformities of musculoskeletal system; F10.10 Alcohol abuse, uncomplicated; K70.9 Alcoholic liver disease, unspecified; N80.9 Endometriosis, unspecified; K21.9 Gastro-esophageal reflux disease without esophagitis; F41.9 Anxiety disorder, unspecified; M54.9 Dorsalgia, unspecified; G89.29 Other chronic pain; M79.7 Fibromyalgia; G35 Multiple sclerosis; Z90.49 Acquired absence of other specified parts of digestive tract; Z90.710 Acquired absence of both cervix and uterus; Z98.84 Bariatric surgery status; Z97.8 Presence of other specified devices; Z96.649 Presence of unspecified artificial hip joint; Z88.6 Allergy status to analgesic agent; Z88.1 Allergy status to other antibiotic agents; Z88.5 Allergy status to narcotic agent

== ENCOUNTER 2017-05-31 22:24 | Emergency (ER) | payer OTHER ==
[~2017-05-31] VITALS: Ht 165.1 cm; Wt 60.2 kg
[2017-05-31 22:31] VITALS: Ht 165.1 cm; Wt 60.2 kg
--- NOTE | 2017-05-31 22:55 | DIAGNOSTIC IMAGING REPORT ---
AP PELVIS AND LEFT HIP 3 VIEWS CLINICAL HISTORY: Left hip pain status post trauma COMPARISON STUDY: 03/16/2017 FINDINGS: There is a left femoral neck compression screw and intramedullary kaylee. There is a left-sided protrusio deformity. There are no acute fractures. There is an old left ischio pubic ring fracture. The bones are osteopenic. There is no SI joint diastases. There is no symphysis diastases. A right lower quadrant pain pump is visualized. IMPRESSION: 1. Old post traumatic changes involving the left hemipelvis 2. Postsurgical changes involving the left hip 3. Chronic left protrusio deformity 4. No acute fractures Electronically signed by: Yahir Valencia M.D. 05/31/2017 10:54 PM Dictated Date/Time: 05/31/2017 10:51 PM
[2017-05-31] MEDS ORDERED: MULT-506 PO (23:02)
[2017-05-31] MEDS ORDERED: FNTTP50 TD (23:02)
--- NOTE | 2017-05-31 23:14 | EMERGENCY ROOM VISIT NOTE ---
History Report prepared by Elana: Jazz Frazier Under the Supervision of: Dr. Delano Choudhury D.O. First contact with patient: 22:28 Chief Complaint: FALL Stated Complaint: FALL, PAIN History of Present Illness The patient is a 52 year old female who presents to the Emergency Room with complaints of persistent left hip pain starting 2 hours ago. The patient was in the kitchen with her walker when she slipped and fell. She landed on her left side. She has had a hip replacement on the left side. She also complains of knee pain. She denies any head injury, but notes that she did black out from the pain. She has a history of MS and liver problems. She is currently not on blood thinners. She reports lower back pain. She denies any chest pain. Source of History: patient Onset: 2 hours ago Position: other (left hip) Quality: other (injury pain) Timing: other (persistent) Associated Symptoms: + back pain, No chest pain Note: Pt reports knee pain. Review of Systems See HPI for pertinent positives & negatives. A total of 10 systems reviewed and were otherwise negative. 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 (23) Rhabdomyolysis (24) Seizure (25) UTI (urinary tract infection) Surgical Problems: (1) H/O gastric bypass (2) H/O gastrostomy (3) H/O total hip arthroplasty (4) History of cholecystectomy (5) History of total hysterectomy Family History Cancer FHx: aneurysm FHx: stroke Social History Smoking Status: Former Smoker Alcohol Use: heavy Drug Use: none Marital Status: Housing Status: lives alone Occupation Status: unemployed Current/Historical Medications Scheduled Cholecalciferol (Vitamin D3), 1 CAP PO DAILY Fentanyl (Duragesic), 50 MCG TD [id number] Multivitamin (Multivitamin), 1 TAB PO DAILY [Pain Pump], 1 EA INJ CONTINOUS Scheduled PRN Hydromorphone HCl (Hydromorphone HCl), 2 MG PO QID PRN for Pain Lorazepam (Ativan), 1 MG PO Q4H PRN for Anxiety Allergies Coded Allergies: Clarithromycin (Verified Allergy, Intermediate, HIVES, 05/31/17) Aspirin (Verified Allergy, Mild, 05/31/17) Tramadol (Verified Allergy, Mild, 05/31/17) Oxaprozin (Verified Allergy, Unknown, 05/31/17) Physical Exam Vital Signs Date Time Temp Pulse Resp B/P (MAP) Pulse Ox O2 Delivery O2 Flow Rate FiO2 05/31/17 23:30 36.7 80 18 123/62 98 05/31/17 23:09 80 18 123/62 98 Room Air 05/31/17 22:31 36.7 75 24 129/84 99 Room Air Physical Exam GENERAL: Patient is awake, alert, mildly anxious appearing, and uncomfortable. EYES: The conjunctivae are clear. The pupils are round and reactive. EARS, NOSE, MOUTH AND THROAT: The nose is without any evidence of any deformity. Mucous membranes are moist tongue is midline NECK: The neck is nontender and supple. RESPIRATORY: Normal respiratory effort is noted there is no evidence of wheezing rhonchi or rales CARDIOVASCULAR: Regular rate and rhythm noted there no murmurs rubs or gallops normal S1 normal S2 GASTROINTESTINAL: The abdomen is soft. Bowel sounds are present in all quadrants. Abdomen is nontender BACK: There was low lumbar tenderness to palpation, but range of motion appeared intact. There was no step off. MUSCULOSKELETAL/EXTREMITIES: There was shortening and pain with range of motion of the left hip. There was no ecchymosis or deformity noted otherwise of the lower extremities. SKIN: There is no obvious evidence of any rash. There are no petechiae, pallor or cyanosis noted. NEUROLOGIC: Patient is awake alert and oriented x3 Medical Decision & Procedures ER Provider Diagnostic Interpretation: X-ray results as stated below per interpretation by me and the radiologist. AP PELVIS AND LEFT HIP 3 VIEWS CLINICAL HISTORY: Left hip pain status post trauma COMPARISON STUDY: 03/16/2017 FINDINGS: There is a left femoral neck compression screw and intramedullary kaylee. There is a left-sided protrusio deformity. There are no acute fractures. There is an old left ischio pubic ring fracture. The bones are osteopenic. There is no SI joint diastases. There is no symphysis diastases. A right lower quadrant pain pump is visualized. IMPRESSION: 1. Old post traumatic changes involving the left hemipelvis 2. Postsurgical changes involving the left hip 3. Chronic left protrusio deformity 4. No acute fractures Electronically signed by: Yahir Valencia M.D. 05/31/2017 10:54 PM Dictated Date/Time: 05/31/2017 10:51 PM ED Course 2229: The patient was evaluated in room B2. A complete history and physical examination were performed. 2299: Upon reevaluation, the patient is doing well. I discussed the results and treatment plan with her. She verbalized agreement of the treatment plan. She was discharged home. Medical Decision Prior records reviewed and summarized above. Triage Nursing notes reviewed. Differential diagnosis: Etiologies such as fracture, dislocation, neurovascular compromise, compartment syndrome, soft tissue injury, as well as others were entertained. Additional history is obtained from the prehospital personnel. The patient is a 52-year-old female who presented to the emergency department after a fall. The patient suffered a fall with an injury to her left hip. The patient has a history of chronic pain in her left hip. She was treated with IM pain medication prior to arrival. I discussed patient's radiographic studies with her. She was encouraged to follow-up with her primary doctor soon as possible. She was also encouraged to continue all medications as prescribed and rest. Medication Reconcilliation Current Medication List: was personally reviewed by me Blood Pressure Screening Patient's blood pressure: Normal blood pressure Blood pressure disposition: Did not require urgent referral Impression Primary Impression: Fall Additional Impression: Contusion of left hip Scribe Attestation The scribe's documentation has been prepared under my direction and personally reviewed by me in its entirety. I confirm that the note above accurately reflects all work, treatment, procedures, and medical decision making performed by me. Departure Information Dispostion Home / Self-Care Referrals Kevin Vera D.O. (PCP) Forms HOME CARE DOCUMENTATION FORM, IMPORTANT VISIT INFORMATION Patient Instructions My [facility], ED Contusion Hip Additional Instructions Call your primary care physician in the morning to schedule a follow-up appointment. Continue all medications as prescribed. Problem Qualifiers Primary Impression: Fall Encounter type: initial encounter Qualified Codes: W19.XXXA - Unspecified fall, initial encounter Additional Impression: Contusion of left hip Encounter type: initial encounter Qualified Codes: S70.02XA - Contusion of left hip, initial encounter
[2017-05-31 23:30] VITALS: BP 123/62; PULSE 80; TEMP 36.7; O2SAT 98
[2017-06-01] MEDS ORDERED: PRT40 PO (10:21)
[2017-06-01] MEDS ORDERED: CRFL PO (10:21)
[2017-06-01] MEDS ORDERED: FLV1 PO (10:21)
[2017-06-01] MEDS ORDERED: MISO1TAB10 PO (10:21)
[2017-06-01] MEDS ORDERED: HYDR2TAB3 PO (10:21)
[2017-06-01] MEDS ORDERED: MIRT15TA3 PO (10:21)
[2017-06-01] MEDS ORDERED: ATV5X PO (10:21)
[2017-06-01] MEDS ORDERED: THIA100T11 PO (10:21)
[2017-06-03] MEDS ORDERED: FNTTP50 TD (15:38)
[2017-06-03] MEDS ORDERED: HYDR2TAB3 PO (15:38)
[2017-06-03] MEDS ORDERED: ATV5X PO (15:38)
[2017-06-03] MEDS ORDERED: ATV5 PO (15:47)
[2017-06-03] MEDS ORDERED: DRGTP50 TD (15:47)
[2017-06-03] MEDS ORDERED: DLD/2 PO (15:47)
== END 2017-05-31 22:30 | disposition home or self-care (01) ==
LOC: EDBD 22:24 → C.EDB 22:25
DX: M25.552 Pain in left hip (principal); W01.0XXA Fall on same level from slipping, tripping and stumbling without subsequent striking against object, initial encounter; M25.569 Pain in unspecified knee; M54.5 Low back pain; G89.29 Other chronic pain; G35 Multiple sclerosis; Z88.6 Allergy status to analgesic agent; Z96.642 Presence of left artificial hip joint; Z87.891 Personal history of nicotine dependence; Z79.899 Other long term (current) drug therapy

== ENCOUNTER 2017-06-01 00:06 | Observation (INO) | payer OTHER ==
[2017-06-01] VITALS (8 sets, daily range): BP systolic 116–152; BP diastolic 76–95; PULSE 65–98; TEMP 36.7–37.2; O2SAT 96–98; Ht 165.1 cm; Wt 58.2 kg
[~2017-06-01] VITALS: Ht 165.1 cm; Wt 58.2 kg
[~2017-06-01 00:06] MED LIST changes: -ERGO50002 PO; +FNTTP50 TD; +MULT-506 PO; -SULF-302 PO; -THIA1TAB PO; -[UNRECOGNIZED DRUG - OTHER]
[2017-06-01] MEDS ORDERED: KETOROLAC TROMETHAMINE 60 MG/2 ML VIAL IM STA (00:25)
--- NOTE | 2017-06-01 00:30 | EMERGENCY ROOM VISIT NOTE ---
History Report prepared by Elana: Mel Cabrera Under the Supervision of: Dr. Chel Mcfarland D.O. First contact with patient: 00:17 Chief Complaint: HIP PAIN Stated Complaint: PAIN IN HIP AND BOTH KNEES,LWR BACK PAIN History of Present Illness The patient is a 52 year old female who presents to the Emergency Room with complaints of persistent left hip pain that started 4 hours ago. The patient rates her pain an 8/10 in severity. The patient notes she did split and fell on her right knee. She states she was not able to get up after her fall. The patient reports she has pain in her lower back and both of her knees. The patient was seen in the ED an hour ago and never made it home. She explained to the nursing staff that she could not possibly go home. She checked herself back in because she does not feel comfortable going home. The patient states she blacked out at home because the pain was so bad. She notes she normally uses a walker and pushes with her right leg because she has a hip replacement in her left hip. The patient reports she was in a rehab facility 1 year ago for 9 months. Her PCP is Dr. Vera. The patient does describe a history of chronic left hip pain. This seems to have exacerbated it. Source of History: patient Onset: 4 hours ago Position: pelvis Symptom Intensity: 8/10 Timing: other (persistent) Associated Symptoms: + back pain Note: Additional symptoms: bilateral knee pain. Review of Systems See HPI for pertinent positives & negatives. A total of 10 systems reviewed and were otherwise negative. 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 (23) Rhabdomyolysis (24) Seizure (25) UTI (urinary tract infection) Surgical Problems: (1) H/O gastric bypass (2) H/O gastrostomy (3) H/O total hip arthroplasty (4) History of cholecystectomy (5) History of total hysterectomy Family History Cancer FHx: aneurysm FHx: stroke Social History Smoking Status: Never Smoker Alcohol Use: heavy Drug Use: none Marital Status: Housing Status: lives alone Occupation Status: unemployed Current/Historical Medications Scheduled Cholecalciferol (Vitamin D3), 1 CAP PO DAILY Fentanyl (Duragesic), 50 MCG TD CQ72HR Multivitamin (Multivitamin), 1 TAB PO DAILY [Pain Pump], 1 EA INJ CONTINOUS Scheduled PRN Hydromorphone HCl (Hydromorphone HCl), 2 MG PO QID PRN for Pain Lorazepam (Ativan), 1 MG PO Q4H PRN for Anxiety Allergies Coded Allergies: Clarithromycin (Verified Allergy, Intermediate, HIVES, 05/31/17) Aspirin (Verified Allergy, Mild, 05/31/17) Tramadol (Verified Allergy, Mild, 05/31/17) Oxaprozin (Verified Allergy, Unknown, 05/31/17) Physical Exam Vital Signs Date Time Temp Pulse Resp B/P (MAP) Pulse Ox O2 Delivery O2 Flow Rate FiO2 06/01/17 06:12 73 18 147/88 99 Room Air 06/01/17 04:46 71 16 129/79 99 Room Air 06/01/17 02:54 70 16 106/78 98 Room Air 06/01/17 01:24 68 16 128/87 97 Room Air 06/01/17 00:09 36.9 80 18 133/94 96 Room Air Physical Exam HEENT: Head - normocephalic and atraumatic Pupils are equal, round, and reactive to light. Extraocular eye muscles are intact, and sclera are anicteric. Nose - moist nasal mucosa without discharge. Mouth - moist buccal mucosa. Oropharynx is nonerythematous and there is no tonsillar exudate or edema noted. Neck: Supple; no JVD, nuchal rigidity, cervical lymphadenopathy. Heart: Regular rate and rhythm. There is a normal S1 and S2 with no murmurs, clicks, or gallops appreciated. Lungs: Clear to auscultation bilaterally with no wheezes, rales, or rhonchi. Abdomen: Soft, completely nontender, nondistended, with good bowel sounds. There are no palpable pulsatile masses or hepatosplenomegaly. There is no guarding, rigidity, or rebound noted. Extremities: No evidence of cyanosis, clubbing, or edema. There are easily palpable peripheral pulses. Pain with any range of motion of left hip. Skin: warm and dry with good turgor and no rashes. Medical Decision & Procedures Medications Administered Medications (Trade) Dose Ordered Sig/Flori Route Start Time Stop Time Status Last Admin Dose Admin Ketorolac Tromethamine (Toradol Inj) 30 mg NOW STAT IM 06/01/17 00:25 06/01/17 00:26 DC 06/01/17 00:32 30 MG Lorazepam (Ativan Tab) 1 mg NOW STAT SL 06/01/17 01:17 06/01/17 01:19 DC 06/01/17 01:23 1 MG Lorazepam (Ativan Tab) 1 mg NOW STAT SL 06/01/17 02:58 06/01/17 03:00 DC 06/01/17 03:01 1 MG Lorazepam (Ativan Tab) 1 mg NOW STAT SL 06/01/17 05:13 06/01/17 05:15 DC 06/01/17 05:17 1 MG Acetaminophen (Tylenol Tab) 1,000 mg NOW STAT PO 06/01/17 06:15 06/01/17 06:16 DC 06/01/17 06:21 1,000 MG Procedure 0025: Toradol Inj 30 mg IM. 0117: Ativan 1 mg SL. 0258: Ativan Tab 1 mg SL. 0513: Ativan Tab 1 mg SL. 0615: Tylenol Tab 1000 mg PO. ED Course 0017: Past medical records reviewed. The patient was evaluated in room B2. A complete history and physical exam was performed. The chart from earlier along with the x-rays of the left hip were reviewed. 0025: Toradol Inj 30 mg IM. 0115: I rechecked the patient and she states the Toradol made her feel like her skin was crawling. She has anxiety and feels that her anxiety is getting worse. I will give her a dose of Ativan. 0117: Ativan 1 mg SL. 0240: The patient is resting at this time. 0256: I rechecked the patient and she feels like her skin is crawling again. I think she is withdrawing from opiates. She takes Dilaudid 4x day and has not had any since yesterday morning. Her fentanyl patch also fell off yesterday. I will administer more Ativan. 0258: Ativan Tab 1 mg SL. 0340: I rechecked the patient and she is sleeping. [facility] will evaluate the patient for admission after 8am. 0510: I rechecked the patient and she said she slept comfortably for a little while but now feels like her skin is crawling again. I questioned her about when her last drink was and she states it was a while ago. She assured me she is not withdrawing from alcohol. I will order another dose of Ativan. 0513: Ativan Tab 1 mg SL. 0615: The patient complains of her usual left hip pain. Tylenol Tab 1000 mg PO. 0630: The patient will be a signed out to Dr. Quiroz at the shift change. Medical Decision The patient is a 52 year old female who presents to the ED with left hip pain. Differential diagnosis includes ambulatory dysfunction, left hip strain, lumbar strain, acute exacerbation of chronic pain of left hip, opiate withdraw, alcohol withdraw. This is a 52-year-old female patient with chronic health issues who presents to the emergency department earlier [facility] after suffering a fall. The patient explains that she slipped and did a splits with her left leg splaying out to the left and she landed on her right knee. The patient describes a history of chronic left hip pain as a result of a hip replacement. She also has chronic low back pain. Since the fall, she has had significant left hip pain and some low back pain. The patient explains that she does not feel comfortable going home because she will not be able to get around secondary to the pain in the left hip. She describes chronic problems in that hip that seem to be much worse at this time. The patient has had a previous 9 month stay at [facility] for rehab. She is requesting admission there again as she does not feel that she can take care of herself. The patient explains that she does not feel that she can ambulate. However, the patient did get up from the bed and bear weight to get into a wheelchair. Case management spoke with [facility] and they believe they will be able to take this patient after 8 AM. Medication Reconcilliation Current Medication List: was personally reviewed by me Impression Primary Impression: Left hip pain Additional Impression: Fall Scribe Attestation The scribe's documentation has been prepared under my direction and personally reviewed by me in its entirety. I confirm that the note above accurately reflects all work, treatment, procedures, and medical decision making performed by me. Departure Information Referrals Kevin Vera D.O. (PCP) Patient Instructions My [facility] Problem Qualifiers Additional Impression: Fall Encounter type: initial encounter Qualified Codes: W19.XXXA - Unspecified fall, initial encounter
[2017-06-01] MEDS ORDERED: LORAZEPAM 1 MG TAB SL STA ×3 (01:17→05:13)
[2017-06-01] MEDS ORDERED: ACETAMINOPHEN 500 MG TAB PO STA (06:15)
[2017-06-01] MEDS ORDERED: ONDANSETRON INJ 2 MG/ML 2 ML VIAL IV STA (07:43)
[2017-06-01] MEDS ORDERED: SODIUM CHLORIDE 0.9% 1000ML 1,000 ML IV STA ×2 (07:43→09:07)
[2017-06-01] MEDS ORDERED: LORAZEPAM 2 MG/ML 1 ML VIAL IV STA (08:02)
[2017-06-01] MEDS ORDERED: SODIUM CHLORIDE 0.9% 500ML 500 ML IV STA (09:07)
[2017-06-01] MEDS ORDERED: HYDROmorphone INJ 0.5 MG/0.5 ML SYR IV STA (09:07)
[2017-06-01 09:11] LABS: ALBUMIN 3.5 gm/dl (3.4-5.0); CALCIUM 8.6 mg/dl (8.5-10.1); CREATININE 0.57 mg/dl (0.60-1.20); POTASSIUM 4.1 mmol/L (3.5-5.1)
[2017-06-01 09:14] LABS: TOTAL PROTEIN 6.7 gm/dl (6.4-8.2)
[2017-06-01] MEDS ORDERED: PANTOprazole INJ 80 MG in DEXTROSE 5% 100ML IV ONE (09:15)
[2017-06-01 09:30] LABS: HEMATOCRIT 38.8 % (37-47); HEMOGLOBIN 12.8 g/dL (12.0-16.0); MEAN CORPUSCULAR HEMOGLOBIN 29.4 pg (25-34); RED CELL DISTRIBUTION WIDTH SD 48.7 fL (36.4-46.3); WHITE BLOOD COUNT 3.07 K/uL (4.8-10.8)
[2017-06-01] MEDS: PANTOprazole INJ 40 MG in DEXTROSE 5% 100ML IV SCH ×3 (09:39→21:08)
[2017-06-01 10:00] LABS: MEAN PLATELET VOLUME 10.2 fL (7.4-10.4); PLATELET COUNT 90 K/uL (130-400)
[2017-06-01] MEDS ORDERED: HYDROmorphone INJ 0.5 MG/0.5 ML SYR IV PRN (10:00)
[2017-06-01] MEDS ORDERED: ALUMINUM/MAGNESIUM/SIMETH (MAALOX MAX) 30 ML UDC PO PRN (10:00)
[2017-06-01] MEDS ORDERED: ACETAMINOPHEN 325 MG TAB PO PRN (10:00)
[2017-06-01] MEDS ORDERED: POLYETHYLENE (MIRALAX) 17 GM PACK PO PRN (10:00)
[2017-06-01] MEDS ORDERED: MAGNESIUM HYDROXIDE SUSP 30 ML UDC PO PRN (10:00)
[2017-06-01 10:02] LABS: BASO % 0.3 %; BASO ABS # 0.01 K/uL (0-0.2); EOS % 0.7 %; EOS ABS # 0.02 K/uL (0-0.5); LYMPH % 15.6 %; LYMPH ABS # 0.48 K/uL (1.2-3.4); MONO % 3.9 %; MONO ABS # 0.12 K/uL (0.11-0.59); NEUT % 79.5 %; NEUT ABS # 2.44 K/uL (1.4-6.5)
--- NOTE | 2017-06-01 10:18 | Gastrointestinal Consultation ---
Gastrointestinal Consultation Date of Consultation: Jun 01, 2017 Attending Physician: Jimmy Consulting Physician: Steph Reason for Consultation: coffee ground emesis, melena History of Present Illness Patient is a 52 year old female w/ history of cirrhosis, ETOH abuse who presents to the ED for hip pain, coffee ground emesis, melena. Pt was seen and evaluated, chart reviewed. Pt notes she has been having coffee ground emesis, melena, BRBPR intermittently x 3 weeks. Notes she had an OP EGD a week ago w/ findings of an ulcer. No evidence of a varices. She tells me this AM she had 3 episodes of coffee ground emesis and two BMs that were dark and tarry. Denies and pain. No lightheadedness, dizziness. Her only complaint this AM was hip pain. Notes she slipped and fell. Is asking for fentanyl, dilaudid as tramadol did not work. She is a poor historian and is tangential on exam. Continues to drink ETOH, cannot tell me when her last drink is. No fever, chills, CP, SOB. On arrival, VSS w/ HGB 12.8, plts 90 EGD 05/23/17: gastritis, anastomotic ulcer, EGD 08/25/16: Normal esophagus. Jeffy-en-Y gastrojejunostomy with gastrojejunal anastomosis characterized by ulceration and luminal narrowing. No specimens collected. 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 proceed with cholecystectomy EGD 07/26/14: normal examined jejunum, empiric dilation, follow up as needed EGD 06/18/14: could not pass 9mm scope, dilation, repeat if symptoms EGD 05/21/14: could not pass 9mm scope, dilation at stricture repeat in 2-3 weeks EGD 04/22/14: dilation at stricture, repeat in 1 week EGD 04/01/14: dilation at stricture, repeat in 1 week EGD 03/26/14: dilation at stricture, repeat in 1 week, consult surgery EGD 03/01/14: dilation at stricture repeat in 2 weeks EGD 02/27/14: dilation at stricture repeat in 2 weeks EGD 02/18/14: could not pass through stenotic gastrojejunal anastomosis Colonoscopy 02/18/14: entire examined colon is normal, normal ileum Past Medical/Surgical History Medical Problems: (1) Alcohol dependence Status: Acute (2) Alcohol intoxication Status: Acute (3) Ankle fracture, lateral malleolus, closed Status: Acute (4) Chronic abdominal pain Status: Acute (5) Chronic anemia Status: Acute (6) Confusion Status: Acute (7) Contusion of left hip Status: Acute (8) Failure of outpatient treatment Status: Acute (9) Fever Status: Acute (10) GI bleed Status: Acute (11) Head injury Status: Acute (12) Hyperbilirubinemia Status: Acute (13) Hypokalemia Status: Acute (14) Hypomagnesemia Status: Acute (15) Jaundice Status: Acute (16) Left elbow pain Status: Acute (17) Left hip pain Status: Acute (18) Nausea, vomiting, and diarrhea Status: Acute (19) Pelvic ring fracture Status: Acute (20) Urinary tract infection Status: Acute (21) Urinary tract infection Status: Acute (22) Vomiting Status: Acute Past Medical History: anxiety, hypothyroidism, depression, alcoholic cirrhosis, anemia, fibromyalgia, MS, chronic back pain Past Surgical History: EGD Colonoscopy ERCP Cholecystectomy 2014 RYGB Family History Cancer FHx: aneurysm FHx: stroke Social History Smoking Status: Never Smoker Alcohol Use: heavy Drug Use: none Marital Status: Housing Status: lives alone Occupation Status: unemployed Allergies Coded Allergies: Clarithromycin (Verified Allergy, Intermediate, HIVES, 05/31/17) Aspirin (Verified Allergy, Mild, 05/31/17) Tramadol (Verified Allergy, Mild, 05/31/17) Oxaprozin (Verified Allergy, Unknown, 05/31/17) Current Medications Home Meds and Scripts Medications Dose Route/Sig Max Daily Dose Days Date Category Dose Instructions Duragesic (Fentanyl) 50 Mcg Tdsy 50 Mcg TD CQ72HR 05/31/17 Reported Multivitamin (Multivitamins) Tab 1 Tab PO DAILY 05/31/17 Reported Vitamin D3 (Cholecalciferol) 2,000 Unit Cap 1 Cap PO DAILY 30 08/25/16 Rx Hydromorphone HCl 2 Mg Tab 2 Mg PO QID PRN 08/25/16 Rx [Pain Pump] 1 Ea INJ CONTINOUS 08/11/16 Reported CONCENTRATION: DOSE PER DAY: MORPHINE - 30.0 MG/ML MORPHINE - 3.498 MG/DAY FENTANYL - 400.0 MCG/ML FENTANYL - 46.64 MCG/DAY Ativan (Lorazepam) 1 Mg Tab 1 Mg PO Q4H PRN 08/11/16 Reported Review of Systems Constitutional: No fever, No chills, No weight loss, No weakness Respiratory: No cough, No shortness of breath Cardiac: No chest pain, No edema Abdomen: + vomiting, + GI bleeding, No pain, No nausea, No diarrhea, No constipation, No dysphagia, No odynophagia Physical Exam Date Time Temp Pulse Resp B/P (MAP) Pulse Ox O2 Delivery O2 Flow Rate FiO2 06/01/17 09:45 81 18 123/87 97 Room Air 06/01/17 08:10 92 18 152/84 98 Room Air 06/01/17 06:12 73 18 147/88 99 Room Air 06/01/17 04:46 71 16 129/79 99 Room Air 06/01/17 02:54 70 16 106/78 98 Room Air 06/01/17 01:24 68 16 128/87 97 Room Air 06/01/17 00:09 36.9 80 18 133/94 96 Room Air General Appearance: no apparent distress Eyes: PERRL ENT: hearing grossly normal Neck: supple, trachea midline Respiratory/Chest: lungs clear, normal breath sounds Cardiovascular: regular rate, rhythm, no JVD Abdomen: normal bowel sounds, non tender, soft, no organomegaly Skin: normal color, no jaundice, warm/dry Laboratory Results Last 24 Hours Test 06/01/17 08:30 06/01/17 09:20 White Blood Count K/uL 3.07 K/uL Red Blood Count M/uL 4.36 M/uL Hemoglobin g/dL 12.8 g/dL Hematocrit % 38.8 % Mean Corpuscular Volume fL 89.0 fL Mean Corpuscular Hemoglobin pg 29.4 pg Mean Corpuscular Hemoglobin Concent g/dl 33.0 g/dl Platelet Count K/uL 90 K/uL RDW Standard Deviation fL 48.7 fL RDW Coefficient of Variation % 15.0 % Sodium Level 139 mmol/L Potassium Level 4.1 mmol/L Chloride Level 111 mmol/L Carbon Dioxide Level 22 mmol/L Anion Gap 6.0 mmol/L Blood Urea Nitrogen 27 mg/dl Creatinine 0.57 mg/dl Est Creatinine Clear Calc Drug Dose 102.7 ml/min Estimated GFR () 122.7 Estimated GFR (Non- 105.8 BUN/Creatinine Ratio 47.8 Random Glucose 103 mg/dl Calcium Level 8.6 mg/dl Total Bilirubin 1.4 mg/dl Direct Bilirubin 0.6 mg/dl Aspartate Amino Transf (AST/SGOT) 227 U/L Alanine Aminotransferase (ALT/SGPT) 281 U/L Alkaline Phosphatase 136 U/L Total Protein 6.7 gm/dl Albumin 3.5 gm/dl Lipase 86 U/L Mean Platelet Volume 10.2 fL Neutrophils (%) (Auto) 79.5 % Lymphocytes (%) (Auto) 15.6 % Monocytes (%) (Auto) 3.9 % Eosinophils (%) (Auto) 0.7 % Basophils (%) (Auto) 0.3 % Neutrophils # (Auto) 2.44 K/uL Lymphocytes # (Auto) 0.48 K/uL Monocytes # (Auto) 0.12 K/uL Eosinophils # (Auto) 0.02 K/uL Basophils # (Auto) 0.01 K/uL Immature Granulocyte % (Auto) 0.0 % Immature Granulocyte # (Auto) 0.00 K/uL Platelet Estimate DECREASED Impression Patient is a 52 year old female history of RYGB w/ stricture, ETOH cirrhosis who presented to the ED with hip pain, coffee ground emesis, melena. She had an EGD 05/23/17 at an outside facility w/ anastomotic ulceration, no varices. On arrival, vital signs stable w/ stable hemoglobin. Her coffee ground emesis and melena likely secondary to bleeding anastomotic ulcer Plan - NPO - IV PPI BID - Trend H&H - Transfuse as needed - Coag studies - As pts vital signs and hemoglobin are stable, will defer endoscopy at this point - No NSAIDs - ETOH withdrawal protocol - Please call with any acute changes, questions or concerns. GI would be happy to arrange endoscopic evaluation if warranted. Attg add: I interviewed and examined pt, reviewed chart and labs. Pt s/p recent hosp for GIB, s/p EGD with anastamotic ulcer, now admit for coffee ground emesis and elevated LFT's. Her BUN is 27, but Hgb is normal. She may be oozing from known ulcer. Would plan to follow Hgb overnight; plan for scope if has sig hgb drop. IV BID PPI. Regarding LFT's - suspect drug induced liver injury. PLease check APAP level, and begin NAC protocol if needed. Follow INR, lipase, LFT's daily. Uls to look for PVT.
[2017-06-01] MEDS ORDERED: MIRT15TA3 PO (10:21)
[2017-06-01] MEDS ORDERED: CRFL PO (10:21)
[2017-06-01] MEDS ORDERED: THIA100T11 PO (10:21)
[2017-06-01] MEDS ORDERED: FLV1 PO (10:21)
[2017-06-01] MEDS ORDERED: ATV5X PO (10:21)
[2017-06-01] MEDS ORDERED: MISO1TAB10 PO (10:21)
[2017-06-01] MEDS ORDERED: PRT40 PO (10:21)
[2017-06-01] MEDS ORDERED: HYDR2TAB3 PO (10:21)
[2017-06-01 10:41] LABS: INR 1.2 (0.9-1.1); PTT PATIENT 21.9 SECONDS (21.0-31.0)
--- NOTE | 2017-06-01 10:42 | History and Physical ---
History & Physical Date & Time of Service: Jun 01, 2017 at 10:24 Chief Complaint: Pain In Hip And Both Knees,Lwr Back Pain Primary Care Physician: Kevin Vera D.O. History of Present Illness Source: patient, clinic records, hospital records This is a 52 y/o female with a history of anxiety, MS, fibromyalgia, chronic pain, alcoholic cirrhosis, h/o alcohol abuse, h/o gastric bypass, PUD and GERD who presented to the ED on 06/01 with abdominal pain, nausea, vomiting and melena. The patient recently had an EGD in [place] 05/23 which showed gastritis and an anastomotic ulcer. Pathology showed chronic inflammation and was negative for H. Pylori. The patient states she has chronic abdominal pain and diarrhea, but this morning she started to have coffee ground emesis and melena. She currently complains of a diffuse 5/10 cramping abdominal pain as well as nausea. She notes chest tightness but thinks this may be due to her anxiety. She denies any shortness of breath. She does report feeling generally weaker and more fatigued than normal. She notes tingling in her LLE, which is chronic. The patient denies fevers, chills, sweats, palpitations, claudication , cough, wheezing, shortness of breath, dysuria, hematuria, urinary retention, paralysis, focal motor weakness. The patient had initially presented with a recent fall and left hip pain, which is chronic. The patient was to be sent to SNF when she developed emesis and melena, as well as gross blood in the rectum per ED physician. Past Medical/Surgical History Medical Problems: (1) Acute pain of left lower extremity (2) TYRONE (acute kidney injury) (3) Alcohol dependence (4) Alcohol intoxication (5) Alcohol withdrawal (6) Altered mental state (7) Anemia (8) Ankle fracture, lateral malleolus, closed (9) Anxiety (10) Bacteremia (11) Chronic abdominal pain (12) Chronic alcoholic liver disease (13) Chronic anemia (14) Chronic back pain (15) Confusion (16) Contusion of left hip (17) Endometriosis (18) Failure of outpatient treatment (19) Fall (20) Fever (21) Fibromyalgia (22) Fungemia (23) GERD (gastroesophageal reflux disease) (24) GI bleed (25) GI bleed (26) Head injury (27) Hyperbilirubinemia (28) Hyperkalemia (29) Hypokalemia (30) Hypokalemia (31) Hypomagnesemia (32) Jaundice (33) Left elbow pain (34) Liver encephalopathy (35) Metabolic acidosis (36) Multiple Sclerosis (37) Nausea, vomiting, and diarrhea (38) Pelvic ring fracture (39) Pneumonia (40) Presence of intrathecal pump (41) Rhabdomyolysis (42) Seizure (43) Urinary tract infection (44) Urinary tract infection (45) UTI (urinary tract infection) (46) Vomiting Surgical Problems: (1) H/O gastric bypass (2) H/O gastrostomy (3) H/O total hip arthroplasty (4) History of cholecystectomy (5) History of total hysterectomy Family History Cancer (brain, skin, lung, stomach, ovarian) FHx: aneurysm FHx: stroke Social History Smoking Status: Former Smoker (quit 30 years ago) Smokeless Tobacco Use: No Alcohol Use: none (former heavy use, reports to me last drink was 3 years ago, however recently admitted for likely ETOH withdrawal seizures) Drug Use: none Marital Status: Housing status: lives alone, fdc Occupational Status: unemployed, disabled Immunizations History of Influenza Vaccine: Unknown History of Tetanus Vaccine?: Unknown History of Pneumococcal: Unknown History of Hepatitis B Vaccine: Unknown Allergies Coded Allergies: Clarithromycin (Verified Allergy, Intermediate, HIVES, 05/31/17) Aspirin (Verified Allergy, Mild, 05/31/17) Tramadol (Verified Allergy, Mild, 05/31/17) Oxaprozin (Verified Allergy, Unknown, 05/31/17) Home Medications Scheduled Cholecalciferol (Vitamin D3), 1 CAP PO DAILY Fentanyl (Duragesic), 50 MCG TD [id number] Folic Acid (Folic Acid), 1 MG PO QD Mirtazapine (Remeron), 15 MG PO HS Misoprostol (Cytotec), 100 MG PO QID Multivitamin (Multivitamin), 1 TAB PO DAILY Pantoprazole (Pantoprazole Sodium), 40 MG PO BID Thiamine Hcl (Vitamin B-1), 100 MG PO DAILY [Pain Pump], 1 EA INJ CONTINOUS Scheduled PRN Hydromorphone HCl (Hydromorphone HCl), 2 MG PO TID PRN for Pain Lorazepam (Lorazepam), 0.5 MG PO TID PRN for Anxiety Sucralfate (Carafate), 10 ML PO QID PRN for abdominal pain Review of Systems Constitutional: +Weak, fatigued. No fever, No chills, No sweats Eyes: No worsening of vision, No eye pain, No diplopia ENT: No hearing loss, No nasal symptoms, No trouble swallowing Respiratory: No cough, No wheezing, No shortness of breath Cardiovascular: +Chest tight. No claudication, No palpitations Abdomen: +Pain, nausea, vomiting, melena. Musculoskeletal: No joint pain, No muscle pain, No swelling Genitourinary - Female: No dysuria, No urinary retention, No hematuria Neurologic: +Chronic LLE tingling. No paralysis, No weakness Integumentary: No rash, No itch, No color change Physical Exam Vital Signs Date Time Temp Pulse Resp B/P (MAP) Pulse Ox O2 Delivery O2 Flow Rate FiO2 06/01/17 09:45 81 18 123/87 97 Room Air 06/01/17 08:10 92 18 152/84 98 Room Air 06/01/17 06:12 73 18 147/88 99 Room Air 06/01/17 04:46 71 16 129/79 99 Room Air 06/01/17 02:54 70 16 106/78 98 Room Air 06/01/17 01:24 68 16 128/87 97 Room Air 06/01/17 00:09 36.9 80 18 133/94 96 Room Air General appearance: Well-developed, well-nourished, no apparent distress Head: Normocephalic, atraumatic Eyes: Normal inspection, PERRL, EOMI ENT: Normal ENT inspection, hearing grossly normal, pharynx normal Neck: Supple, no JVD, trachea midline Respiratory/Chest: Lungs clear to auscultation, normal breath sounds, no respiratory distress Cardiovascular: Regular rate & rhythm, no gallop, no murmur Abdomen/GI: +Diffusely TTP, most marked in epigastric area. Normal bowel sounds, soft Extremities/Musculoskeletal: Normal inspection, no calf tenderness, no pedal edema Neurological/Psych: Alert, normal mood/affect, oriented x 3 Skin: Normal color, warm/dry, no rash Diagnostics Laboratory Results Results Past 24 Hours Test 06/01/17 08:30 06/01/17 09:20 4/18/18 10:00 Range/Units White Blood Count 3.07 4.8-10.8 K/uL Red Blood Count 4.36 4.2-5.4 M/uL Hemoglobin 12.8 12.0-16.0 g/dL Hematocrit 38.8 37-47 % Mean Corpuscular Volume 89.0 80-100 fL Mean Corpuscular Hemoglobin 29.4 25-34 pg Mean Corpuscular Hemoglobin Concent 33.0 32-36 g/dl Platelet Count 90 130-400 K/uL RDW Standard Deviation 48.7 36.4-46.3 fL RDW Coefficient of Variation 15.0 11.5-14.5 % Sodium Level 139 136-145 mmol/L Potassium Level 4.1 3.5-5.1 mmol/L Chloride Level 111 98-107 mmol/L Carbon Dioxide Level 22 21-32 mmol/L Anion Gap 6.0 3-11 mmol/L Blood Urea Nitrogen 27 7-18 mg/dl Creatinine 0.57 0.60-1.20 mg/dl Est Creatinine Clear Calc Drug Dose 102.7 ml/min Estimated GFR () 122.7 Estimated GFR (Non- 105.8 BUN/Creatinine Ratio 47.8 10-20 Random Glucose 103 70-99 mg/dl Calcium Level 8.6 8.5-10.1 mg/dl Total Bilirubin 1.4 0.2-1 mg/dl Direct Bilirubin 0.6 0-0.2 mg/dl Aspartate Amino Transf (AST/SGOT) 227 15-37 U/L Alanine Aminotransferase (ALT/SGPT) 281 12-78 U/L Alkaline Phosphatase 136 45-117 U/L Total Protein 6.7 6.4-8.2 gm/dl Albumin 3.5 3.4-5.0 gm/dl Lipase 86 73-393 U/L Mean Platelet Volume 10.2 7.4-10.4 fL Neutrophils (%) (Auto) 79.5 % Lymphocytes (%) (Auto) 15.6 % Monocytes (%) (Auto) 3.9 % Eosinophils (%) (Auto) 0.7 % Basophils (%) (Auto) 0.3 % Neutrophils # (Auto) 2.44 1.4-6.5 K/uL Lymphocytes # (Auto) 0.48 1.2-3.4 K/uL Monocytes # (Auto) 0.12 0.11-0.59 K/uL Eosinophils # (Auto) 0.02 0-0.5 K/uL Basophils # (Auto) 0.01 0-0.2 K/uL Immature Granulocyte % (Auto) 0.0 % Immature Granulocyte # (Auto) 0.00 0.00-0.02 K/uL Platelet Estimate DECREASED Diagnostic Radiology Reviewed the following studies and agree with interpretation as follows: AP PELVIS AND LEFT HIP 3 VIEWS CLINICAL HISTORY: Left hip pain status post trauma COMPARISON STUDY: 03/16/2017 FINDINGS: There is a left femoral neck compression screw and intramedullary kaylee. There is a left-sided protrusio deformity. There are no acute fractures. There is an old left ischio pubic ring fracture. The bones are osteopenic. There is no SI joint diastases. There is no symphysis diastases. A right lower quadrant pain pump is visualized. IMPRESSION: 1. Old post traumatic changes involving the left hemipelvis 2. Postsurgical changes involving the left hip 3. Chronic left protrusio deformity 4. No acute fractures Impression Assessment and Plan 52 y/o female with a history of anxiety, MS, fibromyalgia, chronic pain, alcoholic cirrhosis, h/o alcohol abuse, h/o gastric bypass, PUD and GERD who presented to the ED on 06/01 with abdominal pain, nausea, vomiting and melena. Pt afebrile, VSS. Hip/pelvis x-ray no acute changes. Hgb stable at 12.8. LFTs elevated. Pt started on IVF and Protonix drip in ED. Pt had also received Dilaudid and several doses of Ativan due to possible opioid withdrawal , currently calm and no s/s withdrawal. GI bleed--likely due to ulcer/gastritis found on recent EGD -Admit to telemetry -Consult GI, appreciate recs -NPO -NSS at 100 cc/hr -Protonix IV drip, bolus received in ED -Hgb stable at 12.8. Continue to trend H&H q6h, transfuse prn -Pt denies any recent NSAID use or alcohol -Home Carafate and misoprostol on hold for now Elevated LFTs, alcoholic cirrhosis, h/o alcohol abuse -Check acute hepatitis panel. Was negative in 2016 -Check alcohol level -Check coags -Continue to monitor LFTs -Hold folic acid and thiamine while NPO Chest pain--related to anxiety vs anemia/GI bleed vs ACS -Trend troponin q8h x 3 -Check EKG now, qam -EKG q am and prn chest pain Anxiety, insomnia -Received several doses Ativan in ED -Hold PO Ativan and Remeron for now as strictly NPO MS--noted Fibromyalgia, chronic pain -Continue fentanyl patch 50 mcg TD q72h -Hold PO hydromorphone as NPO -Dilaudid 0.5 mg IV q6h prn pain -Per pt, pain pump not currently active DVT prophylaxis -Hold chemical ppx due to GI bleed -GUIDO valente and SCDs Code Status -Level I, FULL RESUSCITATION STATUS Resuscitation Status VTE Prophylaxis Will order VTE Prophylaxis: Yes Reason for no VTE drug order: Contraindicated Reviewed: Pt Seen/Exam by Me History Physician Master Control Supervisor supervision Note: I interviewed and examined the patient. Discussed with ANALIA Escobar and agree with findings and plan as documented in the note. Any exceptions or clarifications are listed here: Patient presented to the ER with acute on chronic left hip pain likely due to running out of her home opioid medications to soon. She was recently prescribed a 30 day supply of fentanyl patch and p.o. Dilaudid on May 09, 2017 , and tells me that she had none of that left at home. While she was in the ER , she was noted to have hematemesis and had grossly melanotic stool on rectal exam. She had a very mild drop in hemoglobin at that time after labs were checked. She had a recent EGD which showed a nonbleeding anastomotic ulcer and gastritis, she has been maintained on PPI twice daily and misoprostol. She denies drinking alcohol, but also denies taking any recent opioids while it is clear that she has been prescribed these very recently. Her left hip pain is actually her biggest concern but has been going on for many many years. She tells me she has not been seen by an orthopedic surgeon in greater than 5 years , however she saw one here in the hospital just 9 months ago who recommended a trauma surgeon evaluation for repair of her fractured left acetabulum of the hip. She has no recollection of this. Denies any abdominal pain to me. Is most concerned about getting pain medication at this time. Other past history as per ANALIA's excellent note above. Vitals reviewed Gen: AAOx3, NAD HEENT: anicteric sclerae, EOMI CV: RRR no mgr nl S1S2 Pulm: CTAB no wcr Abd: +BS soft NT ND no masses or hernias, positive hepatomegaly Ext: no edema, 2+ DP pulses, left knee with scar, unable to flex at the left hip past 30 Skin: no rashes, warm/dry Patient is a 52-year-old female with a history of alcohol abuse, alcoholic cirrhosis, gastric bypass with PUD, GI bleeding, grade 1 esophageal varices, gastritis, chronic left acetabular fracture with chronic pain syndrome, opioid dependence, benzodiazepine and opioid abuse, here with acute GI bleed likely from anastomotic ulcer. Also with significantly elevated LFTs, and acute on chronic left hip pain. -PPI drip, will go ahead and continue Carafate 4 times daily and misoprostol 4 times daily -Appreciate GI consultation-no urgent EGD now unless dropped hemoglobin, will check serial H&H's -Check liver ultrasound and portal/hepatic vein duplex for elevated LFTs-likely secondary to her alcoholic hepatitis, but will rule out portal vein thrombosis -Will treat pain with her usual fentanyl patch and IV Dilaudid for breakthrough pain-reviewed her medical prescriptions extensively on the [place] drug database website and she should have not run out of any of her opioids for at least almost 2 more weeks-will not prescribe her any opioids on discharge -Consult orthopedics to see if anything can be done for her left hip pain -Will need SNF placement after GI bleeding stabilizes Documented By: Whitney Marquez
[2017-06-01] MEDS ORDERED: FENTANYL 50 MCG/HR TDSY ONE (10:52)
[2017-06-01 11:37] LABS: HEP C IGG 13 YRS+OLDER_RFLX NEG (NEG)
[2017-06-01] MEDS ORDERED: IV FLUIDS COMPLETED PRN (12:45)
[2017-06-01] MEDS ORDERED: FENTANYL 50 MCG/HR TDSY TD SCH (13:00)
[2017-06-01] MEDS: SODIUM CHLORIDE 0.9% 1000ML 1,000 ML IV SCH ×2 (13:05→23:18)
--- NOTE | 2017-06-01 14:49 | DIAGNOSTIC IMAGING REPORT ---
DUPLEX PORTAL HEPATIC VEINS CLINICAL HISTORY: elevated LFTS, cirrhosis COMPARISON STUDY: Abdomen and pelvis CT 05/09/2017. FINDINGS: The portal and hepatic veins are patent. The splenic vein is also patent. These demonstrate normal direction of flow. IMPRESSION: The portal and hepatic veins are patent. Electronically signed by: Brennen King M.D. 06/01/2017 2:48 PM Dictated Date/Time: 06/01/2017 2:47 PM
--- NOTE | 2017-06-01 14:54 | DIAGNOSTIC IMAGING REPORT ---
ABDOMINAL ULTRASOUND, RIGHT UPPER QUADRANT HISTORY: elevated LFTS, cirrhosis. COMPARISON: Abdomen and pelvis CT 05/09/2017. FINDINGS: Pancreas: The pancreatic head and tail are obscured by overlying bowel gas. The remaining portions of the pancreas are within normal limits. Liver: Slightly nodular contour to the liver consistent with cirrhosis. No hepatic masses. Gallbladder: The gallbladder is surgically absent. CBD: 9 mm. This is due to the patient's postcholecystectomy state. Right kidney: No hydronephrosis. IMPRESSION: 1. Cirrhotic liver. 2. Cholecystectomy. Electronically signed by: Brennen King M.D. 06/01/2017 2:52 PM Dictated Date/Time: 06/01/2017 2:48 PM
[2017-06-01] MEDS: HYDROmorphone INJ 0.5 MG/0.5 ML SYR IV PRN ×3 (15:13→23:18)
[2017-06-01] MEDS: CHECK FENTANYL PATCH PLACEMENT SCH ×2 (15:53→23:50)
[2017-06-01 16:06] LABS: HEMATOCRIT 33.5 % (37-47); HEMOGLOBIN 11.1 g/dL (12.0-16.0)
[2017-06-01] MEDS: ONDANSETRON INJ 2 MG/ML 2 ML VIAL IV PRN (18:27)
[2017-06-01] MEDS ORDERED: LORAZEPAM 1 MG TAB PO PRN (19:00)
[2017-06-01] MEDS ORDERED: MULTI-VITAMIN INFUSION INJ 10 ML, THIAMINE HCL INJ 100 MG, FoLIC ACID INJ 1 MG in SODIU... IV ONE (20:00)
[2017-06-01] MEDS: MISOPROSTOL 100 MCG TAB PO SCH (20:17)
[2017-06-01] MEDS: SUCRALFATE 1 GM/10 ML UDC PO SCH (20:18)
[2017-06-01 20:56] LABS: HEMATOCRIT 33.1 % (37-47); HEMOGLOBIN 10.8 g/dL (12.0-16.0)
[2017-06-01] MEDS: MIRTAZAPINE TAB 15 MG TAB PO SCH (22:38)
[2017-06-01] MEDS: LORAZEPAM 0.5 MG TAB PO PRN (22:38)
[2017-06-02] VITALS (9 sets, daily range): BP systolic 105–125; BP diastolic 71–85; PULSE 61–85; TEMP 36.6–37; O2SAT 93–99
[2017-06-02] MEDS: PANTOprazole INJ 40 MG in DEXTROSE 5% 100ML IV SCH ×5 (00:41→21:09)
[2017-06-02] MEDS: ONDANSETRON INJ 2 MG/ML 2 ML VIAL IV PRN ×2 (00:41→17:56)
[2017-06-02 02:34] LABS: HEMATOCRIT 33.6 % (37-47); MEAN CELL VOLUME 89.1 fL (80-100); MEAN CORPUSCULAR HEMOGLOBIN 29.2 pg (25-34); MEAN CORPUSCULAR HGB CONC 32.7 g/dl (32-36); RED CELL DISTRIBUTION WIDTH CV 15.3 % (11.5-14.5); RED CELL DISTRIBUTION WIDTH SD 49.6 fL (36.4-46.3); WHITE BLOOD COUNT 1.93 K/uL (4.8-10.8)
[2017-06-02 02:35] LABS: MEAN PLATELET VOLUME 10.8 fL (7.4-10.4); PLATELET COUNT 75 K/uL (130-400)
[2017-06-02] MEDS: HYDROmorphone INJ 0.5 MG/0.5 ML SYR IV PRN ×3 (03:12→11:20)
[2017-06-02] MEDS: CHECK FENTANYL PATCH PLACEMENT SCH ×3 (07:27→23:52)
[2017-06-02] MEDS: SODIUM CHLORIDE 0.9% 1000ML 1,000 ML IV SCH (08:14)
[2017-06-02] MEDS: SUCRALFATE 1 GM/10 ML UDC PO SCH ×4 (08:14→20:35)
[2017-06-02] MEDS: MISOPROSTOL 100 MCG TAB PO SCH ×4 (08:15→20:35)
[2017-06-02] MEDS: THIAMINE HCL 100 MG TAB PO SCH (08:15)
[2017-06-02 09:06] LABS: HEMATOCRIT 35.1 % (37-47); HEMOGLOBIN 11.2 g/dL (12.0-16.0)
--- NOTE | 2017-06-02 09:07 | Gastroenterology Progress Note ---
Progress Note Date of Service: Jun 02, 2017 Subjective Pt evaluation today including: conversation w/ patient, physical exam, chart review, lab review Pt was seen and evaluated, chart reviewed. No acute events overnight. Had 5 more episodes of dark, tarry but loose stools. No further episodes of vomiting. Has some mild upper abd pain, intermittent burning. Overall feels weak. AM HGB is pending. Continues to have terrible hip pain. No fever, chills, CP, SOB. EGD 05/23/17: gastritis, anastomotic ulcer, EGD 08/25/16: Normal esophagus. Jeffy-en-Y gastrojejunostomy with gastrojejunal anastomosis characterized by ulceration and luminal narrowing. No specimens collected. 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 proceed with cholecystectomy EGD 07/26/14: normal examined jejunum, empiric dilation, follow up as needed EGD 06/18/14: could not pass 9mm scope, dilation, repeat if symptoms EGD 05/21/14: could not pass 9mm scope, dilation at stricture repeat in 2-3 weeks EGD 04/22/14: dilation at stricture, repeat in 1 week EGD 04/01/14: dilation at stricture, repeat in 1 week EGD 03/26/14: dilation at stricture, repeat in 1 week, consult surgery EGD 03/01/14: dilation at stricture repeat in 2 weeks EGD 02/27/14: dilation at stricture repeat in 2 weeks EGD 02/18/14: could not pass through stenotic gastrojejunal anastomosis Colonoscopy 02/18/14: entire examined colon is normal, normal ileum Review of Systems Constitutional: + weakness, + fatigue, No fever, No chills Respiratory: No cough, No shortness of breath Cardiac: No chest pain, No edema Abdomen: + pain, + diarrhea, + GI bleeding, No nausea, No vomiting, No constipation Medications Current Inpatient Medications Medications (Trade) Dose Ordered Sig/Lfori Route Start Time Stop Time Status Last Admin Dose Admin Pantoprazole Sodium 40 mg/ Dextrose 100 ml @ 20 mls/hr Q5H IV 06/01/17 09:30 07/01/17 09:29 06/02/17 05:24 20 MLS/HR Sodium Chloride 1,000 ml @ 100 mls/hr Q10H IV 06/01/17 13:00 07/01/17 12:59 06/02/17 08:14 100 MLS/HR Acetaminophen (Tylenol Tab) 650 mg Q4H PRN PO 06/01/17 10:00 07/01/17 09:59 Al Hydrox/Mg Hydrox/Simethicone (Maalox Max Susp) 15 ml Q4H PRN PO 06/01/17 10:00 07/01/17 09:59 Magnesium Hydroxide (Milk Of Magnesia Susp) 30 ml Q12H PRN PO 06/01/17 10:00 07/01/17 09:59 Ondansetron HCl (Zofran Inj) 4 mg Q6H PRN IV 06/01/17 10:00 07/01/17 09:59 06/02/17 00:41 4 MG Polyethylene (Miralax Powder Packet) 17 gm DAILY PRN PO 06/01/17 10:00 07/01/17 09:59 Fentanyl (Duragesic Patch) 50 mcg Q72H TD 06/01/17 13:00 06/15/17 12:59 Miscellaneous (Fentanyl Patch Remove & Waste) 1 ea Q3D N/A 06/04/17 12:59 07/04/17 12:58 Miscellaneous Information (Check Fentanyl Patch Placement) 1 ea QS N/A 06/01/17 16:00 07/01/17 15:59 06/02/17 07:27 1 EA Miscellaneous (Iv Fluids Completed) 1 ea PRN PRN N/A 06/01/17 12:45 06/01/18 12:44 Hydromorphone HCl (Dilaudid Inj) 0.5 mg Q4H PRN IV 06/01/17 14:00 06/15/17 09:59 06/02/17 07:27 0.5 MG Folic Acid (Folvite Tab) 1 mg QD PO 06/01/17 20:00 07/01/17 19:59 06/01/17 20:18 1 MG Lorazepam (Ativan Tab) 0.5 mg Q8H PRN PO 06/01/17 19:00 07/01/17 18:59 06/01/17 22:38 0.5 MG Mirtazapine (Remeron Tab) 15 mg HS PO 06/01/17 21:00 07/01/17 20:59 06/01/17 22:38 15 MG Misoprostol (Cytotec Tab) 100 mcg QID PO 06/01/17 21:00 07/01/17 20:59 06/02/17 08:15 100 MCG Sucralfate (Carafate Susp) 1 gm QID PO 06/01/17 21:00 07/01/17 20:59 06/02/17 08:14 1 GM Thiamine HCl (Vitamin B-1 Tab) 100 mg DAILY PO 06/02/17 09:00 07/02/17 08:59 06/02/17 08:15 100 MG Lorazepam (Ativan Tab) 1 mg ONE PRN PO 06/01/17 19:00 07/01/17 18:59 Objective Vital Signs Date Time Temp Pulse Resp B/P (MAP) Pulse Ox O2 Delivery O2 Flow Rate FiO2 06/02/17 07:14 36.8 61 18 108/71 (83) 97 Room Air 06/02/17 04:00 97 Room Air 06/02/17 04:00 36.6 66 18 118/78 (91) 96 Room Air 06/02/17 00:30 97 Room Air 06/01/17 22:51 36.7 70 20 116/76 (89) 98 Room Air 06/01/17 21:30 78 06/01/17 20:00 97 Room Air 06/01/17 19:05 37.2 98 20 117/80 (92) 97 Room Air 06/01/17 16:00 97 Room Air 06/01/17 15:58 36.9 71 16 152/95 (114) 97 Room Air 06/01/17 12:31 36.7 65 18 126/82 (97) 96 Room Air 06/01/17 12:26 96 Room Air 06/01/17 10:58 79 18 130/84 98 Room Air 06/01/17 09:45 81 18 123/87 97 Room Air Physical Exam General Appearance: no apparent distress Eyes: PERRL ENT: hearing grossly normal Neck: supple, trachea midline Respiratory/Chest: lungs clear, normal breath sounds, no respiratory distress, no accessory muscle use Cardiovascular: regular rate, rhythm, no gallop, no JVD Abdomen: normal bowel sounds, non tender, soft, no organomegaly, no pulsatile mass Neurologic/Psych: alert, normal mood/affect, oriented x 3 Skin: normal color, warm/dry, no rash Laboratory Results Last 24 Hours Test 06/01/17 09:20 06/01/17 11:23 06/01/17 15:33 06/01/17 20:33 White Blood Count 3.07 K/uL Red Blood Count 4.36 M/uL Hemoglobin 12.8 g/dL 11.1 g/dL 10.8 g/dL Hematocrit 38.8 % 33.5 % 33.1 % Mean Corpuscular Volume 89.0 fL Mean Corpuscular Hemoglobin 29.4 pg Mean Corpuscular Hemoglobin Concent 33.0 g/dl Platelet Count 90 K/uL Mean Platelet Volume 10.2 fL Neutrophils (%) (Auto) 79.5 % Lymphocytes (%) (Auto) 15.6 % Monocytes (%) (Auto) 3.9 % Eosinophils (%) (Auto) 0.7 % Basophils (%) (Auto) 0.3 % Neutrophils # (Auto) 2.44 K/uL Lymphocytes # (Auto) 0.48 K/uL Monocytes # (Auto) 0.12 K/uL Eosinophils # (Auto) 0.02 K/uL Basophils # (Auto) 0.01 K/uL RDW Standard Deviation 48.7 fL RDW Coefficient of Variation 15.0 % Immature Granulocyte % (Auto) 0.0 % Immature Granulocyte # (Auto) 0.00 K/uL Platelet Estimate DECREASED Troponin I < 0.015 ng/ml < 0.015 ng/ml Ethyl Alcohol mg/dL < 3.0 mg/dl Acetaminophen Level 10 ug/ml Test 06/01/17 22:18 06/02/17 02:16 06/02/17 08:29 Troponin I < 0.015 ng/ml White Blood Count 1.93 K/uL Red Blood Count 3.77 M/uL Hemoglobin 11.0 g/dL Hematocrit 33.6 % Mean Corpuscular Volume 89.1 fL Mean Corpuscular Hemoglobin 29.2 pg Mean Corpuscular Hemoglobin Concent 32.7 g/dl RDW Standard Deviation 49.6 fL RDW Coefficient of Variation 15.3 % Platelet Count 75 K/uL Mean Platelet Volume 10.8 fL Assessment and Plan Patient is a 52 year old female history of RYGB w/ stricture, ETOH cirrhosis who presented to the ED with hip pain, coffee ground emesis, melena. She had an EGD 05/23/17 at an outside facility w/ anastomotic ulceration, no varices. On arrival, vital signs stable w/ stable hemoglobin. Her coffee ground emesis and melena likely secondary to bleeding anastomotic ulcer. Morning HGB pending but endorses 5 episodes of dark, loose tarry stools overnight. No further episodes of vomiting. She had US and duplex as her LFTs were elevated, this was unremarkable. - Review morning labs when able - Please keep NPO until blood work returns - IV PPI - Please resume OP dosing of QID cytotec - Trend H&H - Transfuse as needed - Coag studies - As pts vital signs and hemoglobin are stable, will defer endoscopy at this point - No NSAIDs - Daily LFTs - Daily COAGs - ETOH withdrawal protocol - Please call with any acute changes, questions or concerns. GI would be happy to arrange endoscopic evaluation if warranted. ATTESTATION I have performed a history and physical examination of this patient and reviewed the electronic record. Specifically, on physical examination there is no abdominal tenderness. I have discussed the case with Nicole HUITRON. The above note reflects my findings, conclusions, and recommendations. Delano Gregory MD
[2017-06-02 09:13] LABS: INR 1.1 (0.9-1.1)
[2017-06-02 09:47] LABS: ALBUMIN 2.8 gm/dl (3.4-5.0); CALCIUM 8.2 mg/dl (8.5-10.1); CREATININE 0.68 mg/dl (0.60-1.20); POTASSIUM 4.1 mmol/L (3.5-5.1); TOTAL PROTEIN 5.5 gm/dl (6.4-8.2)
[2017-06-02] MEDS: LORAZEPAM 0.5 MG TAB PO PRN ×2 (12:44→22:07)
[2017-06-02 13:59] LABS: HEPATITIS A IGM TC 51813E NON-REACTIVE (NON-REACTIVE); HEPATITIS B CORE IGM TC51854R NON-REACTIVE (NON-REACTIVE)
--- NOTE | 2017-06-02 14:47 | CONSULTATION REPORT ---
DATE OF CONSULTATION: 06/02/2017 CHIEF COMPLAINT: Left hip pain. HISTORY OF PRESENT ILLNESS: The patient apparently had a fall, was seen in the Emergency Department yesterday where x-rays were obtained and no acute fracture was identified. The patient was sent home. She came back today with a GI bleed and is going to be undergoing an endoscopy tomorrow. She has significant left hip pain which has been chronic. She had an accident a number of years ago which was treated in [place]. PHYSICAL EXAMINATION: Reveals some shortening of the left leg with posttraumatic changes about the left knee clinically as well as pain on any movement and rotation of the hip. X-ray examination reveals evidence of a femoral trochanteric nail, probably a gamma nail with evidence of a healed acetabular fracture with posttraumatic changes. These x-rays are not significantly different than films seen in 2017. ASSESSMENT: Posttraumatic arthritis, left hip, without acute changes. RECOMMENDATIONS: Currently, she has more pressing medical issues at this time. On an elective basis, she could be considered for a removal of her trochanteric nail and conversion to a total hip replacement. Thank you for the consult. We will follow up as an outpatient.
--- NOTE | 2017-06-02 15:10 | Hospitalist Progress Note ---
Hospitalist Progress Note Date of Service Jun 02, 2017. (Valorie Escobar .IRVIN) Subjective Pt evaluation today including: conversation w/ patient, physical exam, chart review, lab review, review of inpatient medication list PO Intake: NPO Voiding: no voiding problems Patient still complains of diffuse abdominal pain, although she appears comfortable during my visit. She reports some nausea but denies any vomiting. Per pt and nursing, she did have some melanotic stools this morning. She is NPO at time of my visit but wants to eat. The patient denies fevers, chills, sweats, chest pain, palpitations, claudication, cough, wheezing, shortness of breath, vomiting, dysuria, hematuria, urinary retention, paralysis, weakness, numbness and tingling. Additional Comments: See HPI for pertinent positives and negatives. All other systems reviewed and negative. (Valorie Escobar PA-C) Objective Vital Signs Date Time Temp Pulse Resp B/P (MAP) Pulse Ox O2 Delivery O2 Flow Rate FiO2 06/02/17 12:00 Room Air 06/02/17 11:47 36.7 66 18 120/80 (93) 99 Room Air 06/02/17 08:00 97 Room Air 06/02/17 07:14 36.8 61 18 108/71 (83) 97 Room Air 06/02/17 04:00 97 Room Air 06/02/17 04:00 36.6 66 18 118/78 (91) 96 Room Air 06/02/17 00:30 97 Room Air 06/01/17 22:51 36.7 70 20 116/76 (89) 98 Room Air 06/01/17 21:30 78 06/01/17 20:00 97 Room Air 06/01/17 19:05 37.2 98 20 117/80 (92) 97 Room Air 06/01/17 16:00 97 Room Air 06/01/17 15:58 36.9 71 16 152/95 (114) 97 Room Air (Valorie Escobar PA-C) Physical Exam Notes: General appearance: Well-developed, well-nourished, no apparent distress Head: Normocephalic, atraumatic Eyes: Normal inspection, PERRL, EOMI ENT: Normal ENT inspection, hearing grossly normal, pharynx normal Neck: Supple, no JVD, trachea midline Respiratory/Chest: Lungs clear to auscultation, normal breath sounds, no respiratory distress Cardiovascular: Regular rate & rhythm, no gallop, no murmur Abdomen/GI: +No guarding, reports diffuse TTP but appears comfortable even with deep palpation. Normal bowel sounds, soft Extremities/Musculoskeletal: Normal inspection, no calf tenderness, no pedal edema Neurological/Psych: Alert, normal mood/affect, oriented x 3 Skin: Normal color, warm/dry, no rash (Valorie Escobar ., ANALIA-C) Laboratory Results Last 24 Hours Test 06/01/17 15:33 06/01/17 20:33 06/01/17 22:18 06/02/17 02:16 Hemoglobin 11.1 g/dL 10.8 g/dL 11.0 g/dL Hematocrit 33.5 % 33.1 % 33.6 % Troponin I < 0.015 ng/ml < 0.015 ng/ml Acetaminophen Level 10 ug/ml White Blood Count 1.93 K/uL Red Blood Count 3.77 M/uL Mean Corpuscular Volume 89.1 fL Mean Corpuscular Hemoglobin 29.2 pg Mean Corpuscular Hemoglobin Concent 32.7 g/dl RDW Standard Deviation 49.6 fL RDW Coefficient of Variation 15.3 % Platelet Count 75 K/uL Mean Platelet Volume 10.8 fL Test 06/02/17 08:29 Hemoglobin 11.2 g/dL Hematocrit 35.1 % Prothrombin Time 11.9 SECONDS Prothromb Time International Ratio 1.1 Sodium Level 143 mmol/L Potassium Level 4.1 mmol/L Chloride Level 117 mmol/L Carbon Dioxide Level 22 mmol/L Anion Gap 4.0 mmol/L Blood Urea Nitrogen 11 mg/dl Creatinine 0.68 mg/dl Est Creatinine Clear Calc Drug Dose 86.1 ml/min Estimated GFR () 115.7 Estimated GFR (Non- 99.9 BUN/Creatinine Ratio 16.7 Random Glucose 91 mg/dl Calcium Level 8.2 mg/dl Total Bilirubin 0.8 mg/dl Direct Bilirubin 0.3 mg/dl Aspartate Amino Transf (AST/SGOT) 117 U/L Alanine Aminotransferase (ALT/SGPT) 186 U/L Alkaline Phosphatase 108 U/L Total Protein 5.5 gm/dl Albumin 2.8 gm/dl Lipase 55 U/L (Valorie Escobar ., PA-C) Assessment and Plan 52 y/o female with a history of anxiety, MS, fibromyalgia, chronic pain, alcoholic cirrhosis, h/o alcohol abuse, h/o gastric bypass, PUD and GERD who presented to the ED on 06/01 with abdominal pain, nausea, vomiting and melena. Pt afebrile, VSS. Hip/pelvis x-ray no acute changes. Hgb stable at 12.8. LFTs elevated. Pt started on IVF and Protonix drip in ED. Pt had also received Dilaudid and several doses of Ativan due to possible opioid withdrawal , currently calm and no s/s withdrawal. GI bleed, likely due to ulcer/gastritis found on recent EGD--stable -Admit to telemetry. No acute events overnight. Pt in sinus rhythm with HR 60s -80s. Transfer to med/surg -Consult GI, appreciate recs: defer endoscopy unless significant Hgb drop -Start regular diet -D/C IVF -Protonix IV drip, bolus received in ED -Hgb remains stable at 11.2 on 06/02 -Pt denies any recent NSAID use or alcohol -Continue home Carafate and Cytotec 100 mg PO QID Elevated LFTs, alcoholic cirrhosis, h/o alcohol abuse--improving -Acute hepatitis panel negative -ETOH level negative -LFTS improved -Coags mildly elevated on admission, now WNL -Resume home folic acid and thiamine -Alcohol withdrawal protocol Chest pain--resolved -Troponin negative x 3 -EKG no ischemic changes Anxiety, insomnia -Resume Ativan 0.5 mg PO TID prn anxiety and Remeron 15 mg PO hs MS--noted Fibromyalgia, chronic pain -Continue fentanyl patch 50 mcg TD q72h -D/C IV Dilaudid as taking meds, continue home Dilaudid 2 mg PO TID prn pain. Doses verified on PDMP -Per pt, pain pump not currently active DVT prophylaxis -Hold chemical ppx due to GI bleed -GUIDO valente and SCDs Code Status -Level I, FULL RESUSCITATION STATUS Dispo -PT/OT evaluate and treat, referral sent to SNF for recent fall/hip pain (Valorie Escobar PA-C) Reviewed: Pt Seen/Exam by Me (Whitney Marquez MD) History Physician Manager Imaging supervision Note: I interviewed and examined the patient. Discussed with ANALIA Escobar and agree with findings and plan as documented in the note. Any exceptions or clarifications are listed here: Patient still has complaints of pain in the left which is chronic. Small amount of black stool this morning, otherwise none. No abdominal pain. Vitals reviewed Gen: AAOx3, NAD HEENT: anicteric sclerae, EOMI Skin: no rashes, warm/dry Patient is a 52-year-old female with a history of alcohol abuse, alcoholic cirrhosis, gastric bypass with PUD, GI bleeding, grade 1 esophageal varices, gastritis, chronic left acetabular fracture with chronic pain syndrome, opioid dependence, benzodiazepine and opioid abuse, here with acute GI bleed likely from anastomotic ulcer. Also with significantly elevated LFTs, and acute on chronic left hip pain. LFTs improving, GI bleeding has most likely subsided, now with residual passing of melena, mild hemoglobin drop. -Continue PPI drip, Carafate 4 times daily and misoprostol 4 times daily -Appreciate GI consultation-no urgent EGD now unless dropped hemoglobin, continue to follow CBC -Elevated LFTs-liver ultrasound and portal/hepatic vein duplex negative-likely secondary to her alcoholic hepatitis -Will treat pain with her usual fentanyl patch and IV Dilaudid for breakthrough pain-reviewed her medical prescriptions extensively on the [place] drug database website and she should have not run out of any of her opioids for at least almost 2 more weeks-will not prescribe her any opioids on discharge -Consult orthopedics to see if anything can be done for her left hip pain- appreciate consultation-recommends eventual total hip replacement but not at this time -Will need SNF placement after GI bleeding stabilizes Documented By: Whitney Marquez (Whitney Marquez MD)
[2017-06-02] MEDS: HYDROmorphone HCL 2 MG TAB PO PRN ×2 (16:06→23:52)
--- NOTE | 2017-06-02 18:25 | EMERGENCY ROOM VISIT NOTE ---
ED Visit Note First contact with patient: 06:47 I received this patient from Dr. Mcfarland at the change of shift. This patient was evaluated and appeared to be in distress. She did request additional medications. The patient was given 1 mg of Dilaudid. Patient had 1 emesis of dark coffee-ground material. It was Gastroccult positive. IV access was obtained and laboratory work was drawn. IV fluids were initiated. The patient' s hemoglobin has dropped slightly since previous check. A stool guaiac was performed. The patient has melanotic guaiac positive stools. Patient has a history of gastric ulcers and gastric bypass surgery. Records from [facility] were obtained from her EGD performed just 2 days ago. Patient apparently has an anastomotic ulcer. IV Protonix was initiated. The case was discussed with the hospitalist service who will evaluate the patient for further management. She remained stable at this time.
[2017-06-02] MEDS: MIRTAZAPINE TAB 15 MG TAB PO SCH (20:36)
[2017-06-03] VITALS: O2SAT 95
[2017-06-03] MEDS: PANTOprazole INJ 40 MG in DEXTROSE 5% 100ML IV SCH ×3 (01:33→12:18)
[2017-06-03] MEDS: LORAZEPAM 0.5 MG TAB PO PRN (06:01)
[2017-06-03 07:18] VITALS: BP 108/70; PULSE 62; TEMP 36.7; O2SAT 97
[2017-06-03 07:37] LABS: HEMATOCRIT 34.8 % (37-47); HEMOGLOBIN 11.3 g/dL (12.0-16.0); MEAN CELL VOLUME 89.5 fL (80-100); MEAN CORPUSCULAR HGB CONC 32.5 g/dl (32-36); RED CELL DISTRIBUTION WIDTH CV 15.2 % (11.5-14.5); RED CELL DISTRIBUTION WIDTH SD 49.3 fL (36.4-46.3); WHITE BLOOD COUNT 1.23 K/uL (4.8-10.8)
[2017-06-03 07:42] LABS: MEAN PLATELET VOLUME 9.3 fL (7.4-10.4); PLATELET COUNT 65 K/uL (130-400)
[2017-06-03] MEDS: HYDROmorphone HCL 2 MG TAB PO PRN ×2 (07:50→16:09)
[2017-06-03] MEDS: THIAMINE HCL 100 MG TAB PO SCH (07:50)
[2017-06-03] MEDS: CHECK FENTANYL PATCH PLACEMENT SCH ×2 (07:51→16:08)
[2017-06-03] MEDS: MISOPROSTOL 100 MCG TAB PO SCH ×2 (07:51→12:18)
[2017-06-03] MEDS: SUCRALFATE 1 GM/10 ML UDC PO SCH ×2 (07:51→12:18)
[2017-06-03] MEDS: ONDANSETRON INJ 2 MG/ML 2 ML VIAL IV PRN (07:57)
[2017-06-03 08:00] VITALS: O2SAT 97
[2017-06-03 08:09] LABS: ALBUMIN 2.9 gm/dl (3.4-5.0); CALCIUM 8.3 mg/dl (8.5-10.1); CREATININE 0.62 mg/dl (0.60-1.20); POTASSIUM 3.7 mmol/L (3.5-5.1)
[2017-06-03 08:12] LABS: TOTAL PROTEIN 5.6 gm/dl (6.4-8.2)
--- NOTE | 2017-06-03 09:14 | Hospitalist Progress Note ---
Hospitalist Progress Note Date of Service Jun 03, 2017. (Ryann Huizar PA-C) Subjective Pt evaluation today including: conversation w/ patient, physical exam, chart review, lab review, review of studies The patient was seen and examined this morning. Pt reports doing well today. She still has some abdominal pain but overall has improved. She was slightly nauseous this morning and vomited a small amount of clear foamy fluid. Denies hematemesis. She has been tolerating a diet well otherwise. She had 2 small bowel movements yesterday and is passing gas. ROS: Constitutional: No fever, sweats or chills Eyes: No diplopia, no worsening or blurred vision ENT: normal hearing, no trouble swallowing Respiratory: No cough, sputum, dyspnea at rest or on exertion Cardiovascular: No chest pain, tightness or palpitations Abdomen: See HPI. Musculoskeletal: No joint pain, calf pain, swelling Neurologic: No weakness, numbness/tingling, or balance problems Psychiatric: No anxiety or depression Skin: No rash or itch (Ryann Huizar PA-C) Objective Vital Signs Date Time Temp Pulse Resp B/P (MAP) Pulse Ox O2 Delivery O2 Flow Rate FiO2 06/03/17 07:18 36.7 62 20 108/70 (83) 97 Room Air 06/03/17 00:00 95 Room Air 06/02/17 23:12 36.7 71 16 111/71 (84) 96 Room Air 06/02/17 19:31 36.7 85 18 105/71 (82) 93 Room Air 06/02/17 16:00 95 Room Air 06/02/17 15:25 37.0 83 18 125/85 (98) 95 Room Air 06/02/17 12:00 Room Air 06/02/17 11:47 36.7 66 18 120/80 (93) 99 Room Air (Ryann Huizar PA-C) Physical Exam Notes: General: awake, alert, no apparent distress Head: Normocephalic, atraumatic ENT: PERRL, EOMI, no pharyngeal exudate, mucous membranes moist Chest: Clear to auscultation, on room air, no adventitious breath sounds Cardiac: Regular rate and rhythm, no murmur, no JVD, normal peripheral pulses, good capillary refill Abdominal: NABS x 4 quadrants, soft, + minimal tenderness to palpation in epigastric region, no rebound, guarding or tenderness Extremities: Normal inspection, no peripheral edema or erythema, calfs nontender to palpation Psych: Normal mood and affect Neuro: AAO x 3, no motor deficits, speech is clear, no peripheral sensory deficits (Ryann Huizar PA-C) Laboratory Results Last 24 Hours Test 06/03/17 07:22 White Blood Count 1.23 K/uL Red Blood Count 3.89 M/uL Hemoglobin 11.3 g/dL Hematocrit 34.8 % Mean Corpuscular Volume 89.5 fL Mean Corpuscular Hemoglobin 29.0 pg Mean Corpuscular Hemoglobin Concent 32.5 g/dl RDW Standard Deviation 49.3 fL RDW Coefficient of Variation 15.2 % Platelet Count 65 K/uL Mean Platelet Volume 9.3 fL Sodium Level 141 mmol/L Potassium Level 3.7 mmol/L Chloride Level 111 mmol/L Carbon Dioxide Level 22 mmol/L Anion Gap 8.0 mmol/L Blood Urea Nitrogen 9 mg/dl Creatinine 0.62 mg/dl Est Creatinine Clear Calc Drug Dose 94.4 ml/min Estimated GFR () 119.3 Estimated GFR (Non- 102.9 BUN/Creatinine Ratio 14.0 Random Glucose 93 mg/dl Calcium Level 8.3 mg/dl Total Bilirubin 0.7 mg/dl Direct Bilirubin 0.3 mg/dl Aspartate Amino Transf (AST/SGOT) 90 U/L Alanine Aminotransferase (ALT/SGPT) 166 U/L Alkaline Phosphatase 112 U/L Total Protein 5.6 gm/dl Albumin 2.9 gm/dl (Ryann uHizar PA-C) Assessment and Plan 52 y/o female with a history of anxiety, MS, fibromyalgia, chronic pain, alcoholic cirrhosis, h/o alcohol abuse, h/o gastric bypass, PUD and GERD who presented to the ED on 06/01 with abdominal pain, nausea, vomiting and melena. GI bleed, likely d/t anastomotic ulcer alcoholic cirrhosis hx gastric bypass with PUD grade 1 esophageal varices Gastritis - GI on board and have no plans for endoscopy unless there is a Hgb drop, tolerating regular diet, - Cont protonix 40 mg Q5H per - No NSAIDs - pt denies hx of alcohol use although has a chronic history of etoh use. - Continue home Carafate and Cytotec 100 mg PO QID Elevated LFTs, alcoholic cirrhosis, h/o alcohol abuse--improving - liver U/S and portal/hepatic vein duplex neg- likely secondary to her alcoholic hepatitis - Acute hepatitis panel negative - ETOH level negative - LFTS improved and coags now normalized - Resume home folic acid and thiamine Chest pain--resolved -Troponin negative x 3 -EKG no ischemic changes Anxiety, insomnia -Resume Ativan 0.5 mg PO TID prn anxiety and Remeron 15 mg PO hs Chronic left acetabular fracture with chronic pain syndrome MS--noted Fibromyalgia Chronic opioid and benzodiazepene dependence -Continue fentanyl patch 50 mcg TD q72h -D/C IV Dilaudid as taking meds, continue home Dilaudid 2 mg PO TID prn pain. Doses verified on PDMP by attending. -Has indwelling pain pump, not currently functioning - Ortho consulted for hip pain - recs eventual THR but no needs at this time - appreciate recs. DVT ppx : teds, scds, ambulatory Code: full Dispo: PT/OT, awaiting placement at SNF, CM assisting (Ryann Huizar, IRVIN)
--- NOTE | 2017-06-03 10:06 | Gastroenterology Progress Note ---
Progress Note Date of Service: Jun 03, 2017 Subjective Pt evaluation today including: conversation w/ patient, physical exam, chart review, lab review Pt was seen and evaluated, chart reviewed. No acute events overnight. Had 5 Bms since yesterday, most recently brown stools. No BRBPR. No nausea. Had one episode of vomiting - this was clear. No coffee ground emesis or hematemesis. Feels well. Chronic hip and back pain. No fever, chills, CP, SOB. EGD 05/23/17: gastritis, anastomotic ulcer, EGD 08/25/16: Normal esophagus. Jeffy-en-Y gastrojejunostomy with gastrojejunal anastomosis characterized by ulceration and luminal narrowing. No specimens collected. 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 proceed with cholecystectomy EGD 07/26/14: normal examined jejunum, empiric dilation, follow up as needed EGD 06/18/14: could not pass 9mm scope, dilation, repeat if symptoms EGD 05/21/14: could not pass 9mm scope, dilation at stricture repeat in 2-3 weeks EGD 04/22/14: dilation at stricture, repeat in 1 week EGD 04/01/14: dilation at stricture, repeat in 1 week EGD 03/26/14: dilation at stricture, repeat in 1 week, consult surgery EGD 03/01/14: dilation at stricture repeat in 2 weeks EGD 02/27/14: dilation at stricture repeat in 2 weeks EGD 02/18/14: could not pass through stenotic gastrojejunal anastomosis Colonoscopy 02/18/14: entire examined colon is normal, normal ileum Review of Systems Constitutional: No fever, No chills Respiratory: No cough, No shortness of breath Cardiac: No chest pain, No edema Abdomen: + nausea, No pain, No vomiting, No diarrhea, No constipation, No GI bleeding (most recent brown stools) Medications Current Inpatient Medications Medications (Trade) Dose Ordered Sig/Flori Route Start Time Stop Time Status Last Admin Dose Admin Pantoprazole Sodium 40 mg/ Dextrose 100 ml @ 20 mls/hr Q5H IV 06/01/17 09:30 07/01/17 09:29 06/03/17 06:01 20 MLS/HR Acetaminophen (Tylenol Tab) 650 mg Q4H PRN PO 06/01/17 10:00 07/01/17 09:59 Al Hydrox/Mg Hydrox/Simethicone (Maalox Max Susp) 15 ml Q4H PRN PO 06/01/17 10:00 07/01/17 09:59 Magnesium Hydroxide (Milk Of Magnesia Susp) 30 ml Q12H PRN PO 06/01/17 10:00 07/01/17 09:59 Ondansetron HCl (Zofran Inj) 4 mg Q6H PRN IV 06/01/17 10:00 07/01/17 09:59 06/03/17 07:57 4 MG Polyethylene (Miralax Powder Packet) 17 gm DAILY PRN PO 06/01/17 10:00 07/01/17 09:59 Fentanyl (Duragesic Patch) 50 mcg Q72H TD 06/01/17 13:00 06/15/17 12:59 Miscellaneous (Fentanyl Patch Remove & Waste) 1 ea Q3D N/A 06/04/17 12:59 07/04/17 12:58 Miscellaneous Information (Check Fentanyl Patch Placement) 1 ea QS N/A 06/01/17 16:00 07/01/17 15:59 06/03/17 07:51 1 EA Miscellaneous (Iv Fluids Completed) 1 ea PRN PRN N/A 06/01/17 12:45 06/01/18 12:44 Folic Acid (Folvite Tab) 1 mg QD PO 06/01/17 20:00 07/01/17 19:59 06/02/17 20:35 1 MG Lorazepam (Ativan Tab) 0.5 mg Q8H PRN PO 06/01/17 19:00 07/01/17 18:59 06/03/17 06:01 0.5 MG Mirtazapine (Remeron Tab) 15 mg HS PO 06/01/17 21:00 07/01/17 20:59 06/02/17 20:36 15 MG Misoprostol (Cytotec Tab) 100 mcg QID PO 06/01/17 21:00 07/01/17 20:59 06/03/17 07:51 100 MCG Sucralfate (Carafate Susp) 1 gm QID PO 06/01/17 21:00 07/01/17 20:59 06/03/17 07:51 1 GM Thiamine HCl (Vitamin B-1 Tab) 100 mg DAILY PO 06/02/17 09:00 07/02/17 08:59 06/03/17 07:50 100 MG Lorazepam (Ativan Tab) 1 mg ONE PRN PO 06/01/17 19:00 07/01/17 18:59 Hydromorphone HCl (Dilaudid Tab) 2 mg TID PRN PO 06/02/17 14:00 06/16/17 13:59 06/03/17 07:50 2 MG Objective Vital Signs Date Time Temp Pulse Resp B/P (MAP) Pulse Ox O2 Delivery O2 Flow Rate FiO2 06/03/17 07:18 36.7 62 20 108/70 (83) 97 Room Air 06/03/17 00:00 95 Room Air 06/02/17 23:12 36.7 71 16 111/71 (84) 96 Room Air 06/02/17 19:31 36.7 85 18 105/71 (82) 93 Room Air 06/02/17 16:00 95 Room Air 06/02/17 15:25 37.0 83 18 125/85 (98) 95 Room Air 06/02/17 12:00 Room Air 06/02/17 11:47 36.7 66 18 120/80 (93) 99 Room Air Physical Exam General Appearance: no apparent distress Eyes: PERRL ENT: hearing grossly normal Neck: supple, trachea midline Respiratory/Chest: lungs clear, normal breath sounds, no accessory muscle use Cardiovascular: regular rate, rhythm, no gallop, no murmur Abdomen: normal bowel sounds, non tender, soft, no organomegaly Neurologic/Psych: alert, normal mood/affect, oriented x 3 Skin: normal color, warm/dry Laboratory Results Last 24 Hours Test 06/03/17 07:22 White Blood Count 1.23 K/uL Red Blood Count 3.89 M/uL Hemoglobin 11.3 g/dL Hematocrit 34.8 % Mean Corpuscular Volume 89.5 fL Mean Corpuscular Hemoglobin 29.0 pg Mean Corpuscular Hemoglobin Concent 32.5 g/dl RDW Standard Deviation 49.3 fL RDW Coefficient of Variation 15.2 % Platelet Count 65 K/uL Mean Platelet Volume 9.3 fL Sodium Level 141 mmol/L Potassium Level 3.7 mmol/L Chloride Level 111 mmol/L Carbon Dioxide Level 22 mmol/L Anion Gap 8.0 mmol/L Blood Urea Nitrogen 9 mg/dl Creatinine 0.62 mg/dl Est Creatinine Clear Calc Drug Dose 94.4 ml/min Estimated GFR () 119.3 Estimated GFR (Non- 102.9 BUN/Creatinine Ratio 14.0 Random Glucose 93 mg/dl Calcium Level 8.3 mg/dl Total Bilirubin 0.7 mg/dl Direct Bilirubin 0.3 mg/dl Aspartate Amino Transf (AST/SGOT) 90 U/L Alanine Aminotransferase (ALT/SGPT) 166 U/L Alkaline Phosphatase 112 U/L Total Protein 5.6 gm/dl Albumin 2.9 gm/dl Assessment and Plan Patient is a 52 year old female history of RYGB w/ stricture, ETOH cirrhosis who presented to the ED with hip pain, coffee ground emesis, melena. She had an EGD 05/23/17 at an outside facility w/ anastomotic ulceration, no varices. On arrival, vital signs stable w/ stable hemoglobin. Her coffee ground emesis and melena likely secondary to bleeding anastomotic ulcer. Morning HGB pending but endorses 5 episodes of dark, loose tarry stools overnight. No further episodes of vomiting. She had US and duplex as her LFTs were elevated, this was unremarkable. - Can switch to oral BID PPI - QID cytotec - Daily H&H - Transfuse as needed - No NSAIDs - Please call with any acute changes, questions or concerns. GI would be happy to arrange endoscopic evaluation if warranted. Pt can re-establish with GI as an OP for her cirrhosis management. Attg add: i interviewed and examined pt, reviewed chart and labs. Pt with brown stool today; o/w no new complaints. Hgb stable and LFT's trending down. Would consider trial of increased cytotec to 200 QID; this may cause cramping and additional diarrhea. BID PPI. No other recommendations; will sign off. Please call with questions.
--- NOTE | 2017-06-03 13:52 | Discharge Instructions ---
Discharge Instructions Date of Service Jun 03, 2017. Admission Reason for Admission: Gi Bleed Discharge Discharge Diagnosis / Problem: Gi bleed, chronic left hip pain Discharge Goals Goal(s): Decrease discomfort, Improve function, Increase independence, Improve disease control Activity Recommendations Activity Level: Up Ad Teresa, Assistance Required Therapies: Physical Therapy, Occupational Therapy Weightbearing Status: Left weightbearing (as tolerated) Lifting Limitations: none, no more than 25 pounds, gradually increase as tolerated Exercise/Sports Limitations: gradually increase as tolerated Shower/Bathe: no limitations (with assistance) . Additional Information Patient informed of condition: Yes Advance Directives: Yes DNR: No Level of Care: Skilled Communicable Disease: No Prognosis: Stable Oxygen at (LPM): NA Dial Catheter: No Instructions / Follow-Up Instructions / Follow-Up You were admitted to [facility] with GI bleed, likely d/t anastomotic ulcer, and gastritis and diagnosed with the same. During your stay here you were treated with supportive care, pain control and were evaluated by Gastroenterology. There was no needs for endoscopy as your hemoglobin was stable throughout admission. Do NOT drink alcohol. For your chronic left hip pain and left acetabular fracture, orthopedic surgery saw you and is recommending a total hip arthroplasty at some point once your medical issues are stabilized. Medications: Continue taking your medications as prescribed. Appointments: Follow up with PCP within 1 week. Follow up with orthopedics, Dr. Ventura, within 2 weeks for evaluation of the Left acetabular fracture Current Hospital Diet Patient's current hospital diet: Regular Diet Discharge Diet Recommended Diet: Regular Diet Procedures Procedures Performed: Liver ultrasound Hepatic vein/portal vein duplex ultrasound Pending Studies Studies pending at discharge: no Physician Orders On Transfer Special Precautions: Fall risk IV Therapy: None Vital Signs: Routine Weigh: Routine POLST Discussion: Not Applicable Medical Emergencies . Who to Call and When: Medical Emergencies: If at any time you feel your situation is an emergency, please call 911 immediately. . Non-Emergent Contact Non-Emergency issues call your: Primary Care Provider, Paper Bundler Call Non-Emergent contact if: you have a fever, temperature is above 100.5, your pain is not controlled, your pain is worsening, your pain is unusual for you, your pain is concerning you, you have any medication questions other concerns with your health. Call 911 or go directly to the Emergency Department if you experience any of the following: Chest pain, chest tightness, shortness of breath, abdominal pain , lightheadedness, dizziness, gastrointestinal bleeding, or have any other concerns regarding your health. . Past History Medical & Surgical History: (1) Gastritis (2) GI bleed (3) GERD (gastroesophageal reflux disease) (4) Chronic alcoholic liver disease (5) Presence of intrathecal pump (6) Chronic back pain . "Provider Documentation" section prepared by Mariela Huizar. . Core Measure Problem Core Measures: None [place] Drug Monitoring Program Search Results: patient reviewed within database, no issues identified
--- NOTE | 2017-06-03 14:07 | Discharge Summary ---
Discharge Summary Date of Service Jun 03, 2017. Discharge Summary Admission Date: Jun 01, 2017 at 12:40 [facility] Principal Diagnosis: GI bleed Problems/Secondary Diagnoses: Medical Problems: GI bleed, likely d/t anastomotic ulcer Alcoholic cirrhosis Hx gastric bypass with PUD Grade 1 esophageal varices Gastritis Elevated LFTs Alcoholic cirrhosis h/o alcohol abuse Chest pain--resolved Anxiety insomnia Multiple Sclerosis Chronic left acetabular fracture with chronic pain syndrome Fibromyalgia Chronic opioid dependence Benzodiazepine dependence Surgical Problems: (1) H/O gastric bypass (2) H/O gastrostomy (3) H/O total hip arthroplasty (4) History of cholecystectomy (5) History of total hysterectomy Immunizations: Have You Had Influenza Vaccine: Unknown History of Tetanus Vaccine?: Unknown History of Pneumococcal: Unknown History of Hepatitis B Vaccine: Unknown Procedures: DUPLEX PORTAL HEPATIC VEINS 06/01/17 FINDINGS: The portal and hepatic veins are patent. The splenic vein is also patent. These demonstrate normal direction of flow. IMPRESSION: The portal and hepatic veins are patent. ABDOMINAL ULTRASOUND, RIGHT UPPER QUADRANT 06/01/17 IMPRESSION: 1. Cirrhotic liver. 2. Cholecystectomy. Consultations: Gastroenterology Orthopedics Medication Reconciliation Continued Medications: Cholecalciferol (Vitamin D3) 2,000 Unit Cap 1 CAP PO DAILY for 30 Days, #30 CAP 3 Refills Fentanyl (Duragesic) 50 Mcg Tdsy 50 MCG TD [id number], PATCH Folic Acid (Folic Acid) 1 Mg Tab 1 MG PO QD Hydromorphone HCl (Hydromorphone HCl) 2 Mg Tab 2 MG PO TID PRN for Pain, #1 TAB Lorazepam (Lorazepam) 0.5 Mg Tab 0.5 MG PO TID PRN for Anxiety Mirtazapine (Remeron) 15 Mg Tab 15 MG PO HS Misoprostol (Cytotec) 100 Mcg Tab 100 MG PO QID Multivitamin (Multivitamin) Tab 1 TAB PO DAILY, TAB Pantoprazole (Pantoprazole Sodium) 40 Mg Tab 40 MG PO BID Sucralfate (Carafate) 1 Gm/10 Ml [place] 10 ML PO QID PRN for abdominal pain for 30 Days, #1200 ML Thiamine Hcl (Vitamin B-1) 100 Mg Tab 100 MG PO DAILY, TAB Discharge Exam The patient was seen and examined this morning. Pt reports doing well today. She still has some abdominal pain but overall has improved. She was slightly nauseous this morning and vomited a small amount of clear foamy fluid. Denies hematemesis. She has been tolerating a diet well otherwise. She had 2 small bowel movements yesterday and is passing gas. ROS: Constitutional: No fever, sweats or chills Eyes: No diplopia, no worsening or blurred vision ENT: normal hearing, no trouble swallowing Respiratory: No cough, sputum, dyspnea at rest or on exertion Cardiovascular: No chest pain, tightness or palpitations Abdomen: See HPI. Musculoskeletal: No joint pain, calf pain, swelling Neurologic: No weakness, numbness/tingling, or balance problems Psychiatric: No anxiety or depression Skin: No rash or itch PE: General: awake, alert, no apparent distress Head: Normocephalic, atraumatic ENT: PERRL, EOMI, no pharyngeal exudate, mucous membranes moist Chest: Clear to auscultation, on room air, no adventitious breath sounds Cardiac: Regular rate and rhythm, no murmur, no JVD, normal peripheral pulses, good capillary refill Abdominal: NABS x 4 quadrants, soft, + minimal tenderness to palpation in epigastric region, no rebound, guarding or tenderness Extremities: Normal inspection, no peripheral edema or erythema, calfs nontender to palpation Psych: Normal mood and affect Neuro: AAO x 3, no motor deficits, speech is clear, no peripheral sensory deficits Hospital Course 52 y/o female with a history of anxiety, MS, fibromyalgia, chronic pain, alcoholic cirrhosis, h/o alcohol abuse, h/o gastric bypass, PUD and GERD who presented to the ED on 06/01 with abdominal pain, nausea, vomiting and melena. GI bleed, likely d/t anastomotic ulcer alcoholic cirrhosis hx gastric bypass with PUD grade 1 esophageal varices Gastritis - GI on board and have no plans for endoscopy unless there is a Hgb drop, tolerating regular diet, - Cont protonix 40 mg p.o. twice daily - No NSAIDs - pt denies hx of alcohol use although has a chronic history of etoh use. - Continue home Carafate and Cytotec 100 mg PO QID Elevated LFTs, alcoholic cirrhosis, h/o alcohol abuse--improving, LFTs coming down. Suspect she may still be drinking as an outpatient despite her denial of this. - liver U/S and portal/hepatic vein duplex neg- likely secondary to her alcoholic hepatitis - Acute viral hepatitis panel negative - ETOH level negative on admission but drawn 12 hours at least after admission - LFTS improved and coags now normalized - Resume home folic acid and thiamine supplementation Chest pain--resolved -Troponin negative x 3 -EKG no ischemic changes Anxiety, insomnia -Resume Ativan 0.5 mg PO TID prn anxiety and Remeron 15 mg PO hs Chronic left acetabular fracture with chronic pain syndrome MS--noted Fibromyalgia Chronic opioid and benzodiazepene dependence -Continue fentanyl patch 50 mcg TD q72h -D/C IV Dilaudid as taking meds, continue home Dilaudid 2 mg PO TID prn pain. Doses verified on PDMP by attending. -Has indwelling pain pump, not currently functioning - Ortho consulted for hip pain - recs eventual total hip arthroplasty but no needs at this time - appreciate recs. Will ask for follow up within 2 weeks after hospital discharge. She may weight bear as tolerated. DVT ppx : teds, scds, ambulatory Code: full Dispo: D/c to SNF. Pt will very unlikely require a rehab stay more than 30 days and her behavioral issues of adjustment disorder have been well controlled throughout hospital stay. Total Time Spent: Greater than 30 minutes This includes examination of the patient, discharge planning, medication reconciliation, and communication with other providers. Discharge Instructions Please refer to the electronic Patient Visit Report (Discharge Instructions) for additional information. Follow-Up Follow up with your Primary Care Provider within 1 week. Follow up with orthopedics within 2 weeks. Additional Copies To Kevin Vera D.O. Reviewed: Pt Seen/Exam by Me History Physician Superintendent Drilling supervision Note: I interviewed and examined the patient. Discussed with ANALIA Huizar and agree with findings and plan as documented in the note. Any exceptions or clarifications are listed here: Had small amount of clear emesis this morning, now doing okay and tolerating p.o. No further black stools, some mild burning epigastric pain. Has chronic left hip pain Vitals reviewed Gen: AAOx3, NAD HEENT: anicteric sclerae, EOMI CV: RRR no mgr nl S1S2 Pulm: CTAB no wcr Abd: +BS soft NT ND no masses or hernias Ext: no edema, 2+ DP pulses Skin: no rashes, warm/dry Neuro: full strength throughout Patient is a 52-year-old female with a history of alcohol abuse, alcoholic cirrhosis, gastric bypass with PUD, GI bleeding, grade 1 esophageal varices, gastritis, chronic left acetabular fracture with chronic pain syndrome, opioid dependence, benzodiazepine and opioid abuse, here with acute GI bleed likely from anastomotic ulcer. Also with significantly elevated LFTs, and acute on chronic left hip pain. LFTs continue to improve, GI bleeding has resolved and hemoglobin remained stable. -Received PPI drip and now transitioned to Protonix 40 mg p.o. twice daily, continue Carafate 4 times daily and misoprostol 100 mcg 4 times daily-GI suggests we could increase her to 200 mcg p.o. 4 times daily of misoprostol, however could cause increased diarrhea and abdominal cramping-could be considered in the future at SNF -Appreciate GI consultation-no urgent EGD now unless dropped hemoglobin, continue to follow CBC periodically as an outpatient -Elevated LFTs-liver ultrasound and portal/hepatic vein duplex negative-likely secondary to her alcoholic hepatitis and improving now that she is abstinent. Should have LFTs followed periodically. Ativan as needed -Will treat pain with her usual fentanyl patch and p.o. Dilaudid for breakthrough pain-reviewed her medical prescriptions extensively on the [place] drug database website and she should have not run out of any of her opioids for at least almost 2 more weeks-will give a temporary supply as she is going to a rehab facility at this point, should follow-up with usual pain management after discharge from rehab -Consult orthopedics for her chronic left hip pain secondary to chronic acetabular fracture-appreciate consultation-recommends eventual total hip replacement but not at this [id number] with orthopedics within 2 weeks Stable for discharge to [facility] today Documented By: Whitney Marquez Would consider trial of increased cytotec to 200 QID; this may cause cramping and additional diarrhea.
[2017-06-03] MEDS ORDERED: ATV5X PO (15:38)
[2017-06-03] MEDS ORDERED: FNTTP50 TD (15:38)
[2017-06-03] MEDS ORDERED: HYDR2TAB3 PO (15:38)
[2017-06-03 15:46] VITALS: BP 124/82; PULSE 66; TEMP 36.6; O2SAT 96
[2017-06-03] MEDS ORDERED: ATV5 PO (15:47)
[2017-06-03] MEDS ORDERED: DRGTP50 TD (15:47)
[2017-06-03] MEDS ORDERED: DLD/2 PO (15:47)
[2017-06-03 15:53] VITALS: BP 124/82; PULSE 66; TEMP 36.6; O2SAT 96
[2017-06-04] MEDS ORDERED: FENTANYL PATCH REMOVE & WASTE SCH (12:59)
== END 2017-06-03 16:45 ==
LOC: C.EDB 00:08 → ENRESERV 10:51 → C.MED 12:40 → INTOOBSV 12:40 → C.MS2W 06-02 21:26
PROVIDERS: ADMIT Family Medicine; ATTEND Family Medicine
DX: K92.2 Gastrointestinal hemorrhage, unspecified (principal); K70.30 Alcoholic cirrhosis of liver without ascites; Z98.84 Bariatric surgery status; K27.9 Peptic ulcer, site unspecified, unspecified as acute or chronic, without hemorrhage or perforation; I85.00 Esophageal varices without bleeding; Z86.59 Personal history of other mental and behavioral disorders; R79.89 Other specified abnormal findings of blood chemistry; R07.9 Chest pain, unspecified; F41.9 Anxiety disorder, unspecified; G47.00 Insomnia, unspecified; G35 Multiple sclerosis; M16.52 Unilateral post-traumatic osteoarthritis, left hip; G89.4 Chronic pain syndrome; M79.7 Fibromyalgia; F11.20 Opioid dependence, uncomplicated; F13.20 Sedative, hypnotic or anxiolytic dependence, uncomplicated; Z93.1 Gastrostomy status; Z96.649 Presence of unspecified artificial hip joint; Z90.49 Acquired absence of other specified parts of digestive tract; Z90.710 Acquired absence of both cervix and uterus; Z79.899 Other long term (current) drug therapy

== ENCOUNTER 2017-10-02 14:25 | Inpatient (IN) | payer OTHER ==
[~2017-10-02] VITALS: Ht 165.1 cm; Wt 57.7 kg
[~2017-10-02 14:25] MED LIST changes: -ATV/1 PO; +ATV5 PO; +CRFL PO; +DLD/2 PO; +DRGTP50 TD; +FLV1 PO; -FNTTP50 TD; -HYDR2TAB3 PO; +MIRT15TA3 PO; +MISO1TAB10 PO; +PANT1TAB4 PO; -Pain Pump INJ; +THIA100T10 PO
[2017-10-02] MEDS ORDERED: SODIUM CHLORIDE 0.9% 1000ML 1,000 ML IV STA (15:02)
[2017-10-02] MEDS ORDERED: LORAZEPAM 2 MG/ML 1 ML VIAL IV STA (15:02)
--- NOTE | 2017-10-02 15:32 | EMERGENCY ROOM VISIT NOTE ---
History First contact with patient: 14:55 Chief Complaint: SEIZURE Stated Complaint: SEIZURE Nursing Triage Summary: hx seizures, not sleeping well recently, woke this am under a chair, called 911. had a seizure for EMS, med with valium and stopped. History of Present Illness The patient is a 52 year old female who presents to the Emergency Room via ambulance with complaints of "seizure". The patient states that she has been drinking more alcohol than normal recently to medicate her pain. She states that her last drink was earlier today. She notes that she woke up today around 11 or 12 and was under her chair bleeding that she may have had a seizure, called 911 and then seized again in the ambulance. She feels pain everywhere, but significant pain in her neck. She rates her overall pain currently as a 6/ 10. She notes she feels very anxious. She notes that she feels similar to the previous time she sees from alcohol withdrawal. She denies taking any medications for seizures. She notes that since she has moved here from [place] she has not seen/followed up with a neurologist. Review of Systems A complete 10-point Review of Systems was discussed with the patient, with pertinent positives and negatives listed in the History of Present Illness. All remaining Review of Systems questions can be considered negative unless otherwise specified. Past Medical/Surgical History Medical Problems: (1) Acute pain of left lower extremity (2) TYRONE (acute kidney injury) (3) Alcohol withdrawal (4) Altered mental state (5) Anemia (6) Anxiety (7) Bacteremia (8) Chronic alcoholic liver disease (9) Chronic back pain (10) Endometriosis (11) Fall (12) Fibromyalgia (13) Fungemia (14) Gastritis (15) GERD (gastroesophageal reflux disease) (16) GI bleed (17) Hyperkalemia (18) Hypokalemia (19) Liver encephalopathy (20) Metabolic acidosis (21) Multiple Sclerosis (22) Pneumonia (23) Presence of intrathecal pump (24) Rhabdomyolysis (25) Seizure (26) UTI (urinary tract infection) Surgical Problems: (1) H/O gastric bypass (2) H/O gastrostomy (3) H/O total hip arthroplasty (4) History of cholecystectomy (5) History of total hysterectomy Family History Cancer (brain, skin, lung, stomach, ovarian) FHx: aneurysm FHx: stroke Social History Smoking Status: Unknown if Ever Smoked Alcohol Use: heavy Drug Use: none Marital Status: Housing Status: lives alone Occupation Status: unemployed, disabled Current/Historical Medications Scheduled Clindamycin HCl (Clindamycin HCl), 2 CAP PO Q6 Fentanyl (Fentanyl), 75 MCG TD Q72H Folic Acid (Folic Acid), 1 MG PO QD Mirtazapine (Remeron), 15 MG PO HS Misoprostol (Cytotec), 100 MG PO QID Pantoprazole (Pantoprazole Sodium), 40 MG PO BID Scheduled PRN Hydrocodone/Acetaminophen 7.5MG/325MG ([place] 7.5MG/325MG), 1 TAB PO Q6 PRN for Pain Hydroxyzine HCl (Hydroxyzine HCl), 25 MG PO Q6 PRN for Anxiety Sucralfate (Carafate), 10 ML PO QID PRN for abdominal pain Physical Exam Vital Signs Date Time Temp Pulse Resp B/P (MAP) Pulse Ox O2 Delivery O2 Flow Rate FiO2 10/02/17 18:50 89 18 149/91 97 Room Air 10/02/17 18:32 75 16 124/76 98 Nasal Cannula 2.0 10/02/17 16:55 75 16 98 Nasal Cannula 2.0 10/02/17 14:32 37.0 89 20 148/88 98 Room Air 10/02/17 14:32 97 Room Air 10/02/17 14:31 85 Physical Exam VITAL SIGNS - Vital signs and nursing notes were reviewed. Stable, afebrile. GENERAL -52-year-old female appearing her stated age who is in no acute distress but does appear to be quite anxious. She is diaphoretic. Communicates well with provider and answers questions appropriately. SKIN - Without rashes. No meningeal or petechial rash. No bony deformity. HEAD - NC/AT. EYES - PERRL with EOMI bilaterally. Sclera anicteric. EARS - No deformities of external structures noted on gross examination bilaterally. NOSE - Midline and without cyanosis. No epistaxis or purulent drainage noted. MOUTH/OROPHARYNX - Without perioral cyanosis. No evidence of intraoral trauma. NECK - Neck with FROM. Supple to palpation. No lymphadenopathy noted. No nuchal rigidity. There is some C-spine tenderness. LUNGS - Chest wall symmetric without accessory muscle use, intercostals retractions, or central cyanosis. Normal vesicular breath sounds CTA B/L. No wheezes, rales, or rhonchi appreciated. CARDIAC - RRR with S1/S2. No murmur, rubs, or gallops appreciated. ABDOMEN - Abdominal contour normal without pulsations or visible masses. BS normoactive all four quadrants. Diffuse tenderness noted. No palpable masses, hepatosplenomegaly, or ascites noted. EXTREMITIES - No clubbing or peripheral cyanosis. No pretibial edema present. + 5/5 strength noted in UE/LE bilaterally. NEUROLOGIC - Cranial nerves II through XII grossly intact. Sensory intact to light touch throughout. PSYCH - A&O, and cooperates fully with examiner. Pt is very pleasant and interacts well with examiner. Medical Decision & Procedures ER Provider Diagnostic Interpretation: CT OF THE HEAD WITHOUT CONTRAST CLINICAL HISTORY: Seizure. COMPARISON STUDY: Head CT August 11, 2016. CT DOSE: 986.62 mGy.cm TECHNIQUE: Helical axial images of the head were obtained without IV contrast. Automated exposure control was utilized for the study. A dose lowering technique was utilized adhering to the principles of ALARA. FINDINGS: No acute intracranial hemorrhage, midline shift or mass effect is present. Brain volume is normal. Ventricular system is normal. Basilar cisterns are patent. There are no extra-axial collections. Sanchez-white differentiation is maintained. There are no findings to suggest acute dural sinus thrombosis or acute territorial infarct. There is no calvarial fracture. Visualized portions of the sinuses and mastoid air cells are clear. IMPRESSION: No acute intracranial findings. Electronically signed by: Benedict Vaughn M.D. 10/02/2017 4:27 PM Dictated Date/Time: 10/02/2017 4:[address] OF THE CERVICAL SPINE WITHOUT CONTRAST CLINICAL HISTORY: Seizure. COMPARISON STUDY: Cervical spine CT June 03, 2015. TECHNIQUE: Helical axial images of the cervical spine were obtained without IV contrast. Sagittal and coronal reconstructions were viewed. A dose lowering technique was utilized adhering to the principles of ALARA. FINDINGS: Craniocervical junction is intact. No definite acute cervical spine fracture is identified. There is mild loss of height of the superior endplates of C7 and T2. These fractures do not appear acute but are new since CT of June 03, 2015. There is no prevertebral edema. Facet joints are intact. There is no pneumothorax within visualized portions of the lung apices. There may be slight loss of height of the superior endplate of T3 as well. IMPRESSION: Mild loss of height of the C7 and T2 vertebral bodies. These represent mild compression fractures. Although new since CT of June 03, 2015 and technically age indeterminate, these do not appear acute. Electronically signed by: Beendict Vaughn M.D. 10/02/2017 4:36 PM Dictated Date/Time: 10/02/2017 4:24 PM Laboratory Results 10/02/17 15:20 Red Blood Count 5.25, Mean Corpuscular Volume 82.1, Mean Corpuscular Hemoglobin 27.6, Mean Corpuscular Hemoglobin Concent 33.6, Mean Platelet Volume 9.2, Neutrophils (%) (Auto) 76.0, Lymphocytes (%) (Auto) 17.5, Monocytes (%) (Auto) 5.0, Eosinophils (%) (Auto) 0.0, Basophils (%) (Auto) 0.7, Neutrophils # (Auto) 5.68, Lymphocytes # (Auto) 1.31, Monocytes # (Auto) 0.37, Eosinophils # (Auto) 0.00, Basophils # (Auto) 0.05 10/02/17 15:20 Test 10/02/17 15:20 10/02/17 16:40 White Blood Count 7.47 K/uL (4.8-10.8) Red Blood Count 5.25 M/uL (4.2-5.4) Hemoglobin 14.5 g/dL (12.0-16.0) Hematocrit 43.1 % (37-47) Mean Corpuscular Volume 82.1 fL (80-100) Mean Corpuscular Hemoglobin 27.6 pg (25-34) Mean Corpuscular Hemoglobin Concent 33.6 g/dl (32-36) Platelet Count 236 K/uL (130-400) Mean Platelet Volume 9.2 fL (7.4-10.4) Neutrophils (%) (Auto) 76.0 % Lymphocytes (%) (Auto) 17.5 % Monocytes (%) (Auto) 5.0 % Eosinophils (%) (Auto) 0.0 % Basophils (%) (Auto) 0.7 % Neutrophils # (Auto) 5.68 K/uL (1.4-6.5) Lymphocytes # (Auto) 1.31 K/uL (1.2-3.4) Monocytes # (Auto) 0.37 K/uL (0.11-0.59) Eosinophils # (Auto) 0.00 K/uL (0-0.5) Basophils # (Auto) 0.05 K/uL (0-0.2) RDW Standard Deviation 56.0 fL (36.4-46.3) RDW Coefficient of Variation 18.9 % (11.5-14.5) Immature Granulocyte % (Auto) 0.8 % Immature Granulocyte # (Auto) 0.06 K/uL (0.00-0.02) Prothrombin Time 11.4 SECONDS (9.0-12.0) Prothromb Time International Ratio 1.1 (0.9-1.1) Activated Partial Thromboplast Time 24.8 SECONDS (21.0-31.0) Partial Thromboplastin Ratio 1.0 Anion Gap 15.0 mmol/L (3-11) Est Creatinine Clear Calc Drug Dose 110.5 ml/min Estimated GFR () 125.6 Estimated GFR (Non- 108.4 BUN/Creatinine Ratio 21.0 (10-20) Calcium Level 8.6 mg/dl (8.5-10.1) Phosphorus Level 3.9 mg/dl (2.5-4.9) Magnesium Level 1.9 mg/dl (1.8-2.4) Total Bilirubin 1.3 mg/dl (0.2-1) Aspartate Amino Transf (AST/SGOT) 55 U/L (15-37) Alanine Aminotransferase (ALT/SGPT) 57 U/L (12-78) Alkaline Phosphatase 117 U/L (45-117) Total Creatine Kinase 86 U/L (26-192) Creatine Kinase MB 1.6 ng/ml (0.5-3.6) Creatine Kinase MB Ratio 1.9 (0-3.0) Troponin I < 0.015 ng/ml (0-0.045) Total Protein 7.8 gm/dl (6.4-8.2) Albumin 4.4 gm/dl (3.4-5.0) Globulin 3.4 gm/dl (2.5-4.0) Albumin/Globulin Ratio 1.3 (0.9-2) Thyroid Stimulating Hormone (TSH) 1.090 uIu/ml (0.300-4.500) Ethyl Alcohol mg/dL 25.5 mg/dl (0-3) Urine Color DK YELLOW Urine Appearance CLEAR (CLEAR) Urine pH 7.0 (4.5-7.5) Urine Specific [place] 1.024 (1.000-1.030) Urine Protein 1+ (NEG) Urine Glucose (UA) NEG (NEG) Urine Ketones 3+ (NEG) Urine Occult Blood NEG (NEG) Urine Nitrite NEG (NEG) Urine Bilirubin NEG (NEG) Urine Urobilinogen NEG (NEG) Urine Leukocyte Esterase TRACE (NEG) Urine WBC (Auto) 5-10 /hpf (0-5) Urine RBC (Auto) >30 /hpf (0-4) Urine Hyaline Casts (Auto) 1-5 /lpf (0-5) Urine Epithelial Cells (Auto) >30 /lpf (0-5) Urine Bacteria (Auto) 1+ (NEG) Urine Opiates Screen POS (NEG) Urine Methadone, Qualitative NEG (NEG) Urine Barbiturates NEG (NEG) Urine Phencyclidine (PCP) Level NEG (NEG) Ur Amphetamine/Methamphetamine NEG (NEG) MDMA (Ecstasy) Screen NEG (NEG) Urine Benzodiazepines Screen NEG (NEG) Urine Cocaine Metabolite NEG (NEG) Urine Marijuana (THC) NEG (NEG) Medications Administered Medications (Trade) Dose Ordered Sig/Flori Route Start Time Stop Time Status Last Admin Dose Admin Lorazepam (Ativan Inj) 1 mg NOW STAT IV 10/02/17 15:02 10/02/17 15:05 DC 10/02/17 15:02 1 MG Sodium Chloride 1,000 ml @ 999 mls/hr Q1H1M STAT IV 10/02/17 15:02 10/02/17 16:02 DC 10/02/17 16:54 999 MLS/HR Promethazine HCl (Phenergan Inj) 25 mg NOW STAT IM 10/02/17 15:41 10/02/17 15:42 DC 10/02/17 15:41 25 MG Lorazepam (Ativan Inj) 2 mg STK-MED ONCE .ROUTE 10/02/17 18:46 10/02/17 18:47 DC 10/02/17 18:48 0.5 MG Lorazepam (Ativan Inj) 2 mg STK-MED ONCE .ROUTE 10/02/17 19:36 10/02/17 19:37 DC 10/02/17 19:38 1 MG Medical Decision Patient was seen and evaluated as above in room B2. Review was performed of nursing notes and vital signs. After obtaining a thorough history and physical examination the above work up was performed. She presents today via ambulance noting 2 seizures. 1 at home and one prehospital which was medicated with Valium without any persistence. I am familiar with the patient from her previous visit of which she had alcohol withdrawal seizure. I suspect she is experiencing the same. IV access was very difficult to establish but was able to finally be established. She was medicated with Ativan, and Phenergan for nausea. She was reevaluated and was not diaphoretic anymore, and did not seem nearly as anxious. CT scan of the head and neck were performed secondary to the seizure, as well as her noting pain in the neck and then the rest of the body. I do not suspect that the compression fractures are new. CBC reveals no concerning leukocytosis or anemia. Coags normal. Chemistry panel reveals no evidence of kidney or liver failure. AST elevated at 55 with bilirubin elevated at 1.3. Urinalysis reveals 3+ ketones, as well as evidence of likely a contaminated sample. I do not suspect UTI. Toxicology screen reveals alcohol level 25.5 and I will note that I do smell an odor of alcohol in the room. I discussed with the patient her care moving forward and this time believe that inpatient management is warranted as I am concerned that she will likely seize again. She has been drinking more alcohol than normal recently she notes. Case discussed with the attending physician and subsequently the hospitalist. Please refer to further documentation regarding her stay. Concussion, Contrecoup Injury, Brain Tumor, Depression, Encephalitis, Hypothyroidism, Meningitis, CVA, TIA, Migraine, Cluster Headache, Intracranial Abnormality, Intracranial Hemorrhage, Subdural Hematoma, Subarachnoid Hemorrhage , Hydrocephalus, Musculoskeletal Strain, Discitis, Cervical Spine Fracture, Cervical Spine Dislocation, Cervical Spine Subluxation, Cervical Spondylosis, Fibromyalgia, Osteoarthritis, Polymyalgia Rheumatica, Psychogenic Pain Disorder , Tumor of Soft Tissue or Spine, among others. Impression Primary Impression: Seizure Additional Impression: Alcohol withdrawal Departure Information Dispostion Admitted as an inpatient Condition FAIR Referrals Kevin Vera D.O. (PCP) Patient Instructions My [facility] Problem Qualifiers
[2017-10-02 15:38] LABS: BASO % 0.7 %; BASO ABS # 0.05 K/uL (0-0.2); HEMATOCRIT 43.1 % (37-47); HEMOGLOBIN 14.5 g/dL (12.0-16.0); IG# 0.06 K/uL (0.00-0.02); LYMPH % 17.5 %; LYMPH ABS # 1.31 K/uL (1.2-3.4); MEAN CELL VOLUME 82.1 fL (80-100); MEAN CORPUSCULAR HEMOGLOBIN 27.6 pg (25-34); MEAN CORPUSCULAR HGB CONC 33.6 g/dl (32-36); MEAN PLATELET VOLUME 9.2 fL (7.4-10.4); MONO ABS # 0.37 K/uL (0.11-0.59); NEUT ABS # 5.68 K/uL (1.4-6.5); PLATELET COUNT 236 K/uL (130-400); RED CELL DISTRIBUTION WIDTH CV 18.9 % (11.5-14.5); WHITE BLOOD COUNT 7.47 K/uL (4.8-10.8)
[2017-10-02] MEDS ORDERED: PROMETHAZINE HCL INJ 25 MG/ML 1 ML VIAL IM STA (15:41)
[2017-10-02 15:47] LABS: INR 1.1 (0.9-1.1); PTT PATIENT 24.8 SECONDS (21.0-31.0)
[2017-10-02 16:04] LABS: ALBUMIN 4.4 gm/dl (3.4-5.0); ALKALINE PHOSPHATASE 117 U/L (45-117); ALT/SGPT 57 U/L (12-78); AST/SGOT 55 U/L (15-37); BLOOD UREA NITROGEN 11 mg/dl (7-18); CALCIUM 8.6 mg/dl (8.5-10.1); CARBON DIOXIDE 23 mmol/L (21-32); CKMB 1.6 ng/ml (0.5-3.6); CREATININE 0.53 mg/dl (0.60-1.20); GLUCOSE 112 mg/dl (70-99); POTASSIUM 3.8 mmol/L (3.5-5.1); SODIUM 137 mmol/L (136-145); TOTAL PROTEIN 7.8 gm/dl (6.4-8.2)
--- NOTE | 2017-10-02 16:28 | DIAGNOSTIC IMAGING REPORT ---
CT OF THE HEAD WITHOUT CONTRAST CLINICAL HISTORY: Seizure. COMPARISON STUDY: Head CT August 11, 2016. CT DOSE: 986.62 mGy.cm TECHNIQUE: Helical axial images of the head were obtained without IV contrast. Automated exposure control was utilized for the study. A dose lowering technique was utilized adhering to the principles of ALARA. FINDINGS: No acute intracranial hemorrhage, midline shift or mass effect is present. Brain volume is normal. Ventricular system is normal. Basilar cisterns are patent. There are no extra-axial collections. Sanchez-white differentiation is maintained. There are no findings to suggest acute dural sinus thrombosis or acute territorial infarct. There is no calvarial fracture. Visualized portions of the sinuses and mastoid air cells are clear. IMPRESSION: No acute intracranial findings. Electronically signed by: Benedict Vaughn M.D. 10/02/2017 4:27 PM Dictated Date/Time: 10/02/2017 4:24 PM
--- NOTE | 2017-10-02 16:37 | DIAGNOSTIC IMAGING REPORT ---
CT OF THE CERVICAL SPINE WITHOUT CONTRAST CLINICAL HISTORY: Seizure. COMPARISON STUDY: Cervical spine CT June 03, 2015. TECHNIQUE: Helical axial images of the cervical spine were obtained without IV contrast. Sagittal and coronal reconstructions were viewed. A dose lowering technique was utilized adhering to the principles of ALARA. FINDINGS: Craniocervical junction is intact. No definite acute cervical spine fracture is identified. There is mild loss of height of the superior endplates of C7 and T2. These fractures do not appear acute but are new since CT of June 03, 2015. There is no prevertebral edema. Facet joints are intact. There is no pneumothorax within visualized portions of the lung apices. There may be slight loss of height of the superior endplate of T3 as well. IMPRESSION: Mild loss of height of the C7 and T2 vertebral bodies. These represent mild compression fractures. Although new since CT of June 03, 2015 and technically age indeterminate, these do not appear acute. Electronically signed by: Benedict Vaughn M.D. 10/02/2017 4:36 PM Dictated Date/Time: 10/02/2017 4:24 PM
[2017-10-02] MEDS ORDERED: ATR25 PO (16:40)
[2017-10-02] MEDS ORDERED: HYDR-3983 PO (16:40)
[2017-10-02] MEDS ORDERED: FNTTP75 TD (16:40)
[2017-10-02] MEDS ORDERED: [UNRECOGNIZED DRUG - CODE] PO (16:40)
[2017-10-02] MEDS ORDERED: LORAZEPAM INJ 0.5 MG in SYRINGE 0.25 ML IV STA (18:08)
[2017-10-02] MEDS ORDERED: LORAZEPAM 2 MG/ML 1 ML VIAL ONE ×2 (18:46→19:36)
[2017-10-02] MEDS ORDERED: SUCRALFATE 1 GM/10 ML UDC PO PRN (19:45)
[2017-10-02] MEDS ORDERED: NURSING VERBAL MED ORDER ONE (20:00)
[2017-10-02] MEDS ORDERED: SODIUM CHLORIDE 0.9% 1000ML 1,000 ML IV SCH (20:15)
--- NOTE | 2017-10-02 20:21 | History and Physical ---
History & Physical Date & Time of Service: Oct 02, 2017 at 19:56 Chief Complaint: Seizure Primary Care Physician: Kevin Vera D.O. History of Present Illness Source: patient Patient is a 52yo Past Medical/Surgical History Medical Problems: Alcohol abuse with history of withdrawal and seizure Anemia Anxiety Alcoholic liver disease Endometriosis Fibromyalgia Fungemia GERD Gastritis GIB Presence of intrathecal pain pump Multiple sclerosis Surgical Problems: (1) H/O gastric bypass (2) H/O gastrostomy (3) H/O total hip arthroplasty (4) History of cholecystectomy (5) History of total hysterectomy Intrathecal pain pump Family History Cancer (brain, skin, lung, stomach, ovarian) FHx: aneurysm FHx: stroke Social History Smoking Status: Never Smoker Smokeless Tobacco Use: No Alcohol Use: heavy Drug Use: none Marital Status: Housing status: lives alone, assisted Occupational Status: unemployed, disabled Immunizations History of Influenza Vaccine: Unknown History of Tetanus Vaccine?: Unknown History of Pneumococcal: Unknown History of Hepatitis B Vaccine: Unknown Allergies Coded Allergies: Clarithromycin (Verified Allergy, Intermediate, HIVES, 08/03/17) Aspirin (Verified Allergy, Mild, 08/03/17) Tramadol (Verified Allergy, Mild, 08/03/17) Oxaprozin (Verified Allergy, Unknown, 08/03/17) Home Medications Scheduled Clindamycin HCl (Clindamycin HCl), 2 CAP PO Q6 Fentanyl (Fentanyl), 75 MCG TD Q72H Folic Acid (Folic Acid), 1 MG PO QD Mirtazapine (Remeron), 15 MG PO HS Misoprostol (Cytotec), 100 MG PO QID Pantoprazole (Pantoprazole Sodium), 40 MG PO BID Scheduled PRN Hydrocodone/Acetaminophen 7.5MG/325MG ([place] 7.5MG/325MG), 1 TAB PO Q6 PRN for Pain Hydroxyzine HCl (Hydroxyzine HCl), 25 MG PO Q6 PRN for Anxiety Sucralfate (Carafate), 10 ML PO QID PRN for abdominal pain Review of Systems Constitutional: + chills, + sweats, No fever, No weight loss, No weakness, No fatigue Eyes: + worsening of vision, + diplopia ENT: No hearing loss Respiratory: No cough, No shortness of breath Cardiovascular: No chest pain Abdomen: + nausea, + vomiting, No pain, No diarrhea Musculoskeletal: No joint pain, No muscle pain Genitourinary - Female: No dysuria, No hematuria Neurologic: No weakness Psychiatric: No depression symptoms Endocrine: No fatigue Hematologic / Lymphatic: No abnormal bleeding/bruising Integumentary: No rash Allergic / Immunologic: No environmental allergies Physical Exam Vital Signs Date Time Temp Pulse Resp B/P (MAP) Pulse Ox O2 Delivery O2 Flow Rate FiO2 10/02/17 18:50 89 18 149/91 97 Room Air 10/02/17 18:32 75 16 124/76 98 Nasal Cannula 2.0 10/02/17 16:55 75 16 98 Nasal Cannula 2.0 10/02/17 14:32 37.0 89 20 148/88 98 Room Air 10/02/17 14:32 97 Room Air 10/02/17 14:31 85 General: patient tremulous, anxious, AA&O x 4 Skin: cool, diaphoretic HEENT: NC/AT, PERRL, EOMI, anicteric sclera, conjunctiva without injection, nares patent, moist mucus membranes, no oropharyngeal lesions, neck supple, trachea midline, no thyromegaly, no LAD Heart: +S1/S2, regular, tachycardic, no m/r/g Lungs: equal air entry bilaterally, no rales/rhonchi/wheezes Abdomen: soft, NT/ND, no masses/organomegaly/ascites, palpable pain pump in RLQ Extremities: warm, well perfused, no clubbing/cyanosis or edema, 2+ palpable pulses in UE/LE bilaterally Neuro: grossly nonfocal Diagnostics Laboratory Results Results Past 24 Hours Test 10/02/17 15:20 10/02/17 16:40 Range/Units White Blood Count 7.47 4.8-10.8 K/uL Red Blood Count 5.25 4.2-5.4 M/uL Hemoglobin 14.5 12.0-16.0 g/dL Hematocrit 43.1 37-47 % Mean Corpuscular Volume 82.1 80-100 fL Mean Corpuscular Hemoglobin 27.6 25-34 pg Mean Corpuscular Hemoglobin Concent 33.6 32-36 g/dl Platelet Count 236 130-400 K/uL Mean Platelet Volume 9.2 7.4-10.4 fL Neutrophils (%) (Auto) 76.0 % Lymphocytes (%) (Auto) 17.5 % Monocytes (%) (Auto) 5.0 % Eosinophils (%) (Auto) 0.0 % Basophils (%) (Auto) 0.7 % Neutrophils # (Auto) 5.68 1.4-6.5 K/uL Lymphocytes # (Auto) 1.31 1.2-3.4 K/uL Monocytes # (Auto) 0.37 0.11-0.59 K/uL Eosinophils # (Auto) 0.00 0-0.5 K/uL Basophils # (Auto) 0.05 0-0.2 K/uL RDW Standard Deviation 56.0 36.4-46.3 fL RDW Coefficient of Variation 18.9 11.5-14.5 % Immature Granulocyte % (Auto) 0.8 % Immature Granulocyte # (Auto) 0.06 0.00-0.02 K/uL Prothrombin Time 11.4 9.0-12.0 SECONDS Prothromb Time International Ratio 1.1 0.9-1.1 Activated Partial Thromboplast Time 24.8 21.0-31.0 SECONDS Partial Thromboplastin Ratio 1.0 Sodium Level 137 136-145 mmol/L Potassium Level 3.8 3.5-5.1 mmol/L Chloride Level 99 98-107 mmol/L Carbon Dioxide Level 23 21-32 mmol/L Anion Gap 15.0 3-11 mmol/L Blood Urea Nitrogen 11 7-18 mg/dl Creatinine 0.53 0.60-1.20 mg/dl Est Creatinine Clear Calc Drug Dose 110.5 ml/min Estimated GFR () 125.6 Estimated GFR (Non- 108.4 BUN/Creatinine Ratio 21.0 10-20 Random Glucose 112 70-99 mg/dl Calcium Level 8.6 8.5-10.1 mg/dl Magnesium Level 1.9 1.8-2.4 mg/dl Total Bilirubin 1.3 0.2-1 mg/dl Aspartate Amino Transf (AST/SGOT) 55 15-37 U/L Alanine Aminotransferase (ALT/SGPT) 57 12-78 U/L Alkaline Phosphatase 117 45-117 U/L Total Creatine Kinase 86 26-192 U/L Creatine Kinase MB 1.6 0.5-3.6 ng/ml Creatine Kinase MB Ratio 1.9 0-3.0 Troponin I < 0.015 0-0.045 ng/ml Total Protein 7.8 6.4-8.2 gm/dl Albumin 4.4 3.4-5.0 gm/dl Globulin 3.4 2.5-4.0 gm/dl Albumin/Globulin Ratio 1.3 0.9-2 Thyroid Stimulating Hormone (TSH) 1.090 0.300-4.500 uIu/ml Ethyl Alcohol mg/dL 25.5 0-3 mg/dl Urine Color DK YELLOW Urine Appearance CLEAR CLEAR Urine pH 7.0 4.5-7.5 Urine Specific [place] 1.024 1.000-1.030 Urine Protein 1+ NEG Urine Glucose (UA) NEG NEG Urine Ketones 3+ NEG Urine Occult Blood NEG NEG Urine Nitrite NEG NEG Urine Bilirubin NEG NEG Urine Urobilinogen NEG NEG Urine Leukocyte Esterase TRACE NEG Urine WBC (Auto) 5-10 0-5 /hpf Urine RBC (Auto) >30 0-4 /hpf Urine Hyaline Casts (Auto) 1-5 0-5 /lpf Urine Epithelial Cells (Auto) >30 0-5 /lpf Urine Bacteria (Auto) 1+ NEG Urine Opiates Screen POS NEG Urine Methadone, Qualitative NEG NEG Urine Barbiturates NEG NEG Urine Phencyclidine (PCP) Level NEG NEG Ur Amphetamine/Methamphetamine NEG NEG MDMA (Ecstasy) Screen NEG NEG Urine Benzodiazepines Screen NEG NEG Urine Cocaine Metabolite NEG NEG Urine Marijuana (THC) NEG NEG Microbiology Results 10/02/17 Urine Culture, Received Pending Diagnostic Radiology CT OF THE CERVICAL SPINE WITHOUT CONTRAST CLINICAL HISTORY: Seizure. COMPARISON STUDY: Cervical spine CT June 03, 2015. TECHNIQUE: Helical axial images of the cervical spine were obtained without IV contrast. Sagittal and coronal reconstructions were viewed. A dose lowering technique was utilized adhering to the principles of ALARA. FINDINGS: Craniocervical junction is intact. No definite acute cervical spine fracture is identified. There is mild loss of height of the superior endplates of C7 and T2. These fractures do not appear acute but are new since CT of June 03, 2015. There is no prevertebral edema. Facet joints are intact. There is no pneumothorax within visualized portions of the lung apices. There may be slight loss of height of the superior endplate of T3 as well. IMPRESSION: Mild loss of height of the C7 and T2 vertebral bodies. These represent mild compression fractures. Although new since CT of June 03, 2015 and technically age indeterminate, these do not appear acute. Electronically signed by: Benedict Vaughn M.D. CT OF THE HEAD WITHOUT CONTRAST CLINICAL HISTORY: Seizure. COMPARISON STUDY: Head CT August 11, 2016. CT DOSE: 986.62 mGy.cm TECHNIQUE: Helical axial images of the head were obtained without IV contrast. Automated exposure control was utilized for the study. A dose lowering technique was utilized adhering to the principles of ALARA. FINDINGS: No acute intracranial hemorrhage, midline shift or mass effect is present. Brain volume is normal. Ventricular system is normal. Basilar cisterns are patent. There are no extra-axial collections. Sanchez-white differentiation is maintained. There are no findings to suggest acute dural sinus thrombosis or acute territorial infarct. There is no calvarial fracture. Visualized portions of the sinuses and mastoid air cells are clear. IMPRESSION: No acute intracranial findings. Electronically signed by: Benedict Vaughn M.D. 10/02/2017 4:27 PM EKG Normal sinus rhythm Possible Left atrial enlargement Low voltage QRS Borderline ECG When compared with ECG of 03-JUN-2017 09:05, No significant change was found Confirmed by Jose Alberto Blakely ([id number]) on 08/03/2017 9:50:44 AM Impression Assessment and Plan 52yo female with EtOH withdrawal 1. EtOH withdrawal - patient with history of the same. Reports drinking 1/5 of Vodka daily for the last couple of weeks. Last drink reported to be middle of the night last night. +Seizure x 2 today, one at home and one in ambulance en route to ER. Patient presently tremulous, tachycardic, anxious. LFTs with mildly elevated Tbili at 1.3 and AST at 55 -Admit to telemetry -EtoH level -UDS - Valium load - 10mg po q 30 minutes until patient becomes drowsy. When patient awakes will use IV Ativan PRN -Continuous pulse oximetry -Seizure precautions -Banana bag x 1 liter -Daily MVI, Folic acid and thiamine 2. Seizure - patient with history of the same in setting of EtOH withdrawal. Last reported 3 months ago -Admit to tele as above -Seizure precautions -EtOH withdrawal management as above -Patient with neck pain, old compression fractures noted on CT. Consider Ortho consultation when acute issues resolve. 3. Gastric ulcers/GERD - no evidence of bleeding at present -Continue Cytotec and BID Protonix 4. Chronic pain - patient with pain pump in situ. Reports that it is not functioning. She is to see a specialist in [place] to see about replacement. -Pain management consult to see if pain pump can be placed here -Continue Fentanyl patch -Hold additional opioids in setting of benzo administration -Continuous pulse oximetry 5. F/E/N - Banana bag x 1 liter followed by NSS at 125mL/hr x 1 liter. Monitor electrolytes and replete as needed. NPO for now except medications. 6. Ppx - Lovenox for DVT prophylaxis 7. Code - Full 8. Dispo - admit to tele Resuscitation Status Full VTE Prophylaxis Will order VTE Prophylaxis: Yes
[2017-10-02 21:05] VITALS: BP 123/67; PULSE 82; TEMP 37.6; O2SAT 98
[2017-10-02] MEDS ORDERED: DIAZEPAM 5MG TAB PO STA (21:12)
[2017-10-02] MEDS ORDERED: MULTI-VITAMIN INFUSION INJ 10 ML, THIAMINE HCL INJ 100 MG, FoLIC ACID INJ 1 MG in SODIU... IV ONE (21:30)
[2017-10-02 22:22] VITALS: BP 138/73; PULSE 82; TEMP 37.3; O2SAT 98; BMI 20.4
[2017-10-02] MEDS: DIAZEPAM 5MG TAB PO SCH ×3 (22:26→23:28)
[2017-10-02 23:16] VITALS: BP 142/83; PULSE 74; TEMP 37.1; O2SAT 97
[2017-10-03] VITALS (8 sets, daily range): BP systolic 114–151; BP diastolic 72–89; PULSE 67–116; TEMP 36.6–37.1; O2SAT 96–98; Ht 165.1 cm; Wt 57.7 kg
[2017-10-03] MEDS: ENOXAPARIN 40 MG/0.4 ML SYR SC SCH ×2 (00:08→20:37)
[2017-10-03] MEDS: DIAZEPAM 5MG TAB PO SCH ×3 (00:08→00:51)
[2017-10-03] MEDS: PANTOprazole SOD 40 MG TAB PO SCH ×3 (00:08→20:36)
[2017-10-03] MEDS: MISOPROSTOL 100 MCG TAB PO SCH ×5 (00:09→20:36)
[2017-10-03] MEDS ORDERED: FENTANYL 75 MCG/HR TDSY TD SCH ×2 (00:30→09:00)
[2017-10-03] MEDS ORDERED: NURSING VERBAL MED ORDER ONE (01:30)
[2017-10-03] MEDS: ONDANSETRON INJ 2 MG/ML 2 ML VIAL IV PRN ×2 (03:10→15:49)
[2017-10-03] MEDS: LORAZEPAM 2 MG/ML 1 ML VIAL IV PRN ×3 (03:10→10:18)
[2017-10-03] MEDS: CHECK FENTANYL PATCH PLACEMENT SCH ×4 (07:50→23:41)
[2017-10-03] MEDS ORDERED: FENTANYL PATCH REMOVE & WASTE SCH (08:59)
--- NOTE | 2017-10-03 10:28 | Hospitalist Progress Note ---
Hospitalist Progress Note Date of Service Oct 03, 2017. (Jigna Tapia ., ELANA) Subjective Pt evaluation today including: conversation w/ patient, physical exam, chart review, lab review, review of studies, review of inpatient medication list Voiding: no voiding problems Ms. Saldana feels tremulous and has generalized pain as well as a headache. She has been in a NSR on the monitor, heart rate 70s-80s. She reports that she does not like to drink but does so to control pain. She is not interested in alcohol rehab following discharge because she feels she can quit drinking on her own. ROS Constitutional: no chills, aches, sweats or fever Respiratory: no sob,cough, sputum, or wheezing Cardiac: no chest pain, palpitations, edema, orthopnea or lightheadedness GI: no abdominal pain, nausea, vomiting, diarrhea or constipation : no dysuria or hesitancy Extremities: no joint pain or weakness Skin: no rash All other systems reviewed and negative (Jigna Tapia .ELANA) Medications Medications Administered Medications (Trade) Dose Ordered Sig/Flori Route Start Time Stop Time Status Last Admin Dose Admin Lorazepam (Ativan Inj) 1 mg NOW STAT IV 10/02/17 15:02 10/02/17 15:05 DC 10/02/17 15:02 1 MG Sodium Chloride 1,000 ml @ 999 mls/hr Q1H1M STAT IV 10/02/17 15:02 10/02/17 16:02 DC 10/02/17 16:54 999 MLS/HR Promethazine HCl (Phenergan Inj) 25 mg NOW STAT IM 10/02/17 15:41 10/02/17 15:42 DC 10/02/17 15:41 25 MG Lorazepam (Ativan Inj) 2 mg STK-MED ONCE .ROUTE 10/02/17 18:46 10/02/17 18:47 DC 10/02/17 18:48 0.5 MG Lorazepam (Ativan Inj) 2 mg STK-MED ONCE .ROUTE 10/02/17 19:36 10/02/17 19:37 DC 10/02/17 19:38 1 MG Enoxaparin Sodium (Lovenox Inj) 40 mg QPM SC 10/02/17 22:45 11/01/17 22:44 10/03/17 00:08 40 MG Ondansetron HCl (Zofran Inj) 4 mg Q6H PRN IV 10/02/17 19:45 11/01/17 19:44 10/03/17 03:10 4 MG Multivitamins 10 ml/Thiamine HCl 100 mg/Folic Acid 1 mg/Sodium Chloride 1,011.2 ml @ 500 mls/ hr Q2H2M ONCE IV 10/02/17 21:30 10/02/17 23:31 DC 10/02/17 22:06 500 MLS/HR Lorazepam (Ativan Inj) PRN Dosing -Active Protocol Q1H PRN IV 10/02/17 19:45 11/01/17 19:44 10/03/17 10:18 1 MG Diazepam (Valium Tab) 10 mg Q30M PO 10/02/17 22:00 10/03/17 01:19 DC 10/03/17 00:51 10 MG Folic Acid (Folvite Tab) 1 mg DAILY PO 10/03/17 09:00 11/02/17 08:59 10/03/17 07:51 1 MG Misoprostol (Cytotec Tab) 100 mcg QID PO 10/02/17 21:00 11/01/17 20:59 10/03/17 07:50 100 MCG Pantoprazole Sodium (Protonix Tab) 40 mg BID PO 10/02/17 21:00 11/01/17 20:59 10/03/17 07:51 40 MG Sodium Chloride 1,000 ml @ 100 mls/hr Q10H IV 10/02/17 20:15 10/03/17 06:14 DC 10/03/17 00:10 100 MLS/HR Miscellaneous Information (Check Fentanyl Patch Placement) 1 ea QS N/A 10/03/17 00:00 11/02/17 00:00 10/03/17 07:50 1 EA Fentanyl (Duragesic Patch) 75 mcg Q72H TD 10/03/17 00:30 10/17/17 00:29 10/03/17 00:50 75 MCG (Jigna Tapia CRNP) Objective Vital Signs Date Time Temp Pulse Resp B/P (MAP) Pulse Ox O2 Delivery O2 Flow Rate FiO2 10/03/17 08:00 Room Air 10/03/17 07:41 116 10/03/17 07:27 36.9 76 18 129/74 (92) 98 Room Air 10/03/17 04:51 37.0 75 18 139/83 (101) 96 Room Air 10/03/17 00:00 Room Air 10/02/17 23:16 37.1 74 20 142/83 (102) 97 Room Air 10/02/17 22:22 37.3 82 24 138/73 98 Room Air 10/02/17 21:05 37.6 82 20 123/67 (85) 98 Room Air 10/02/17 20:34 94 18 150/83 96 10/02/17 18:50 89 18 149/91 97 Room Air 10/02/17 18:32 75 16 124/76 98 Nasal Cannula 2.0 10/02/17 16:55 75 16 98 Nasal Cannula 2.0 10/02/17 14:32 37.0 89 20 148/88 98 Room Air 10/02/17 14:32 97 Room Air 10/02/17 14:31 85 (Jigna Tapia CRNP) Physical Exam Notes: General: no distress Eyes: normal inspection, PERLL Respiratory: chest non tender, clear to auscultation, normal breath sounds, no respiratory distress, no accessory muscle use Cardiac: regular rate and rhythm, no rub or gallop, no murmur, no edema, no jvd GI/: active bowel sounds, no abd pain or tenderness, soft, non distended Extremities: normal range of motion, normal strength, non tender Neuro/Psych: alert and oriented x 3, normal mood and affect, some tremors in bilateral hands Skin: normal color, dry (Jigna Tapia CRNP) Laboratory Results Last 24 Hours Test 10/02/17 15:20 10/02/17 16:40 10/02/17 22:02 White Blood Count 7.47 K/uL Red Blood Count 5.25 M/uL Hemoglobin 14.5 g/dL Hematocrit 43.1 % Mean Corpuscular Volume 82.1 fL Mean Corpuscular Hemoglobin 27.6 pg Mean Corpuscular Hemoglobin Concent 33.6 g/dl Platelet Count 236 K/uL Mean Platelet Volume 9.2 fL Neutrophils (%) (Auto) 76.0 % Lymphocytes (%) (Auto) 17.5 % Monocytes (%) (Auto) 5.0 % Eosinophils (%) (Auto) 0.0 % Basophils (%) (Auto) 0.7 % Neutrophils # (Auto) 5.68 K/uL Lymphocytes # (Auto) 1.31 K/uL Monocytes # (Auto) 0.37 K/uL Eosinophils # (Auto) 0.00 K/uL Basophils # (Auto) 0.05 K/uL RDW Standard Deviation 56.0 fL RDW Coefficient of Variation 18.9 % Immature Granulocyte % (Auto) 0.8 % Immature Granulocyte # (Auto) 0.06 K/uL Prothrombin Time 11.4 SECONDS Prothromb Time International Ratio 1.1 Activated Partial Thromboplast Time 24.8 SECONDS Partial Thromboplastin Ratio 1.0 Sodium Level 137 mmol/L Potassium Level 3.8 mmol/L Chloride Level 99 mmol/L Carbon Dioxide Level 23 mmol/L Anion Gap 15.0 mmol/L Blood Urea Nitrogen 11 mg/dl Creatinine 0.53 mg/dl Est Creatinine Clear Calc Drug Dose 110.5 ml/min Estimated GFR () 125.6 Estimated GFR (Non- 108.4 BUN/Creatinine Ratio 21.0 Random Glucose 112 mg/dl Calcium Level 8.6 mg/dl Phosphorus Level 3.9 mg/dl Magnesium Level 1.9 mg/dl Total Bilirubin 1.3 mg/dl Aspartate Amino Transf (AST/SGOT) 55 U/L Alanine Aminotransferase (ALT/SGPT) 57 U/L Alkaline Phosphatase 117 U/L Total Creatine Kinase 86 U/L Creatine Kinase MB 1.6 ng/ml Creatine Kinase MB Ratio 1.9 Troponin I < 0.015 ng/ml Total Protein 7.8 gm/dl Albumin 4.4 gm/dl Globulin 3.4 gm/dl Albumin/Globulin Ratio 1.3 Thyroid Stimulating Hormone (TSH) 1.090 uIu/ml Ethyl Alcohol mg/dL 25.5 mg/dl Urine Color DK YELLOW Urine Appearance CLEAR Urine pH 7.0 Urine Specific [place] 1.024 Urine Protein 1+ Urine Glucose (UA) NEG Urine Ketones 3+ Urine Occult Blood NEG Urine Nitrite NEG Urine Bilirubin NEG Urine Urobilinogen NEG Urine Leukocyte Esterase TRACE Urine WBC (Auto) 5-10 /hpf Urine RBC (Auto) >30 /hpf Urine Hyaline Casts (Auto) 1-5 /lpf Urine Epithelial Cells (Auto) >30 /lpf Urine Bacteria (Auto) 1+ Urine Opiates Screen POS Urine Methadone, Qualitative NEG Urine Barbiturates NEG Urine Phencyclidine (PCP) Level NEG Ur Amphetamine/Methamphetamine NEG MDMA (Ecstasy) Screen NEG Urine Benzodiazepines Screen NEG Urine Cocaine Metabolite NEG Urine Marijuana (THC) NEG Vitamin B12 Level 1022 pg/mL Folate 16.86 ng/mL Hepatitis C Antibody Screen NEG (Jigna Tapia CRNP) Assessment and Plan 52yo female with EtOH withdrawal EtOH withdrawal with seizure - patient with history of the same. Reports drinking 1/5 of Vodka daily for the last couple of weeks. Last drink reported to be middle of the night 10/01. +Seizure x 2 10/02, one at home and one in ambulance en route to ER, no further seizure activity. -EtoH level 25 - Given Valium load on admission, discontinue Ativan prn per AWSS scale and start librium taper with prn ativan for breakthrough tremors/seizure activity - will start gabapentin protocol -Continuous pulse oximetry -Seizure precautions - patient has history of seizure in setting of ETOH withdrawal - last reported 3 months ago prior to this episode -Banana bag x 1 liter given -continue daily Folic acid and thiamine, start regular diet - encourage alcohol cessation Chronic pain - patient with pain pump in situ. Reports that it is not functioning. - per pain management, this patient is not a candidate to have her pump replaced as she is non compliant with pain medication regimen and alcohol cessation. She was considering have pump replaced in [place] but this is not a viable option as pain management in [place] would not be willing to manage it afterward given her history -Continue Fentanyl patch -Hold additional opioids in setting of benzo administration -Continuous pulse oximetry Gastric ulcers/GERD - no evidence of bleeding at present -Continue Cytotec and BID Protonix Ppx - Lovenox for DVT prophylaxis Code - Full (Jigna Tapia CRNP) OFFICE EXECUTIVE Physician Supervision Note: I discussed with Jigna Tapia OFFICE EXECUTIVE and agree with findings and plan as documented in the note. Any exceptions or clarifications are listed here: None Patient is here with questionable seizure in the face of alcohol withdrawal. She is doing well with exception of some minor elevation of her heart rate. He began gabapentin as far as withdrawal protocol which also have a antiepileptic effect. Urine culture is pending Documented By: Bob Varela (Bob Varela M.D.)
[2017-10-03] MEDS ORDERED: CHLORDIAZEPOXIDE 25 MG CAP PO SCH (11:00)
[2017-10-03] MEDS ORDERED: GABAPENTIN 600 MG TAB PO SCH (11:00)
[2017-10-03 11:58] LABS: CALCIUM 7.8 mg/dl (8.5-10.1); CREATININE 0.46 mg/dl (0.60-1.20); POTASSIUM 3.7 mmol/L (3.5-5.1)
[2017-10-03] MEDS ORDERED: GABAPENTIN 1200MG LOADING DOSE PO ONE (12:30)
[2017-10-03] MEDS: LORAZEPAM INJ 1 MG in SYRINGE 0.5 ML IV PRN (12:38)
[2017-10-03] MEDS: CHLORDIAZEPOXIDE 50MG 1ST DOSE PO SCH ×3 (12:41→23:41)
[2017-10-03] MEDS: GABAPENTIN 600MG Q6H DOSE PO SCH ×2 (17:41→23:41)
[2017-10-03] MEDS ORDERED: ONDANSETRON INJ 2 MG/ML 2 ML VIAL IV STA (18:22)
[2017-10-04] VITALS (7 sets, daily range): BP systolic 115–136; BP diastolic 74–86; PULSE 71–87; TEMP 36.5–36.9; O2SAT 94–96
[2017-10-04] MEDS: ONDANSETRON INJ 2 MG/ML 2 ML VIAL IV PRN ×3 (03:17→16:10)
--- NOTE | 2017-10-04 04:21 | Progress Note ---
Progress Note Date of Service Oct 04, 2017. Progress Note Paged about patient being found on the floor after complaining of seizure like activity 10 minutes after being refused pain medications. Patient assessed and found to have no neurological abnormalities although complaining about fogginess and fatigue. Complains of neck discomfort although was having similar complaint prior to the fall. States that she thinks she hit her head when she fell out of the bed. Has been scoring 2 and under on AWSS scale overnight. Head CT ordered and 1 to 1 at bedside.
[2017-10-04] MEDS: CHLORDIAZEPOXIDE 50MG 1ST DOSE PO SCH (06:04)
--- NOTE | 2017-10-04 06:57 | DIAGNOSTIC IMAGING REPORT ---
HEAD WITHOUT CONTRAST (CT) CLINICAL HISTORY: 52 years-old Female presenting with Fall, Hit head. TECHNIQUE: Multidetector CT imaging of the head was performed without the use of intravenous contrast. IV contrast: None. A dose lowering technique was used consistent with the principles of ALARA (as low as reasonably achievable). COMPARISON: 10/02/2017. CT DOSE (mGy.cm): The estimated cumulative dose is 614.27 mGy.cm. 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 Ventricles and sulci normal in size. Brain parenchyma normal in appearance with preserved salas-white differentiation. No mass effect or midline shift. No hemorrhage or acute territorial infarct. No extra-axial fluid collection. Paranasal sinuses and mastoid air cells clear. Calvarium intact. IMPRESSION: 1. No acute intracranial abnormality. Electronically signed by: Luis A Cali M.D. 10/04/2017 6:55 AM Dictated Date/Time: 10/04/2017 6:35 AM
[2017-10-04] MEDS: GABAPENTIN 600MG Q8H DOSE PO SCH ×3 (08:34→23:34)
[2017-10-04] MEDS: ACETAMINOPHEN 325 MG TAB PO PRN ×2 (08:34→16:05)
[2017-10-04] MEDS: PANTOprazole SOD 40 MG TAB PO SCH ×2 (08:34→21:48)
[2017-10-04] MEDS: THIAMINE HCL 100 MG TAB PO SCH (08:35)
[2017-10-04] MEDS: MISOPROSTOL 100 MCG TAB PO SCH ×4 (08:35→21:47)
[2017-10-04] MEDS: CHECK FENTANYL PATCH PLACEMENT SCH ×3 (08:36→23:37)
--- NOTE | 2017-10-04 08:54 | Hospitalist Progress Note ---
Hospitalist Progress Note Date of Service Oct 04, 2017. (Jigna Tapia ., ELANA) Subjective Pt evaluation today including: conversation w/ patient, physical exam, chart review, lab review, review of inpatient medication list Voiding: no voiding problems Ms. Saldana is feeling muscle aches, tremors and nausea. She says she generally just feels terrible. She did fall out of bed over the night. CT of the head was negative. She is conversing appropriately this morning ROS Constitutional: no chills, aches, sweats or fever Respiratory: no sob,cough, sputum, or wheezing Cardiac: no chest pain, palpitations, edema, orthopnea or lightheadedness GI: no abdominal pain, nausea, vomiting, diarrhea or constipation : no dysuria or hesitancy Extremities: see HPI Skin: no rash All other systems reviewed and negative (Jigna Tapia ., ELANA) Medications Medications Administered Medications (Trade) Dose Ordered Sig/Flori Route Start Time Stop Time Status Last Admin Dose Admin Lorazepam (Ativan Inj) 1 mg NOW STAT IV 10/02/17 15:02 10/02/17 15:05 DC 10/02/17 15:02 1 MG Sodium Chloride 1,000 ml @ 999 mls/hr Q1H1M STAT IV 10/02/17 15:02 10/02/17 16:02 DC 10/02/17 16:54 999 MLS/HR Promethazine HCl (Phenergan Inj) 25 mg NOW STAT IM 10/02/17 15:41 10/02/17 15:42 DC 10/02/17 15:41 25 MG Lorazepam (Ativan Inj) 2 mg STK-MED ONCE .ROUTE 10/02/17 18:46 10/02/17 18:47 DC 10/02/17 18:48 0.5 MG Lorazepam (Ativan Inj) 2 mg STK-MED ONCE .ROUTE 10/02/17 19:36 10/02/17 19:37 DC 10/02/17 19:38 1 MG Enoxaparin Sodium (Lovenox Inj) 40 mg QPM SC 10/02/17 22:45 11/01/17 22:44 10/03/17 20:37 40 MG Acetaminophen (Tylenol Tab) 650 mg Q4H PRN PO 10/02/17 19:45 11/01/17 19:44 10/04/17 08:34 650 MG Ondansetron HCl (Zofran Inj) 4 mg Q6H PRN IV 10/02/17 19:45 11/01/17 19:44 10/04/17 03:17 4 MG Multivitamins 10 ml/Thiamine HCl 100 mg/Folic Acid 1 mg/Sodium Chloride 1,011.2 ml @ 500 mls/ hr Q2H2M ONCE IV 10/02/17 21:30 10/02/17 23:31 DC 10/02/17 22:06 500 MLS/HR Lorazepam (Ativan Inj) PRN Dosing -Active Protocol Q1H PRN IV 10/02/17 19:45 10/03/17 11:02 DC 10/03/17 10:18 1 MG Diazepam (Valium Tab) 10 mg Q30M PO 10/02/17 22:00 10/03/17 01:19 DC 10/03/17 00:51 10 MG Folic Acid (Folvite Tab) 1 mg DAILY PO 10/03/17 09:00 11/02/17 08:59 10/04/17 08:35 1 MG Misoprostol (Cytotec Tab) 100 mcg QID PO 10/02/17 21:00 11/01/17 20:59 10/04/17 08:35 100 MCG Pantoprazole Sodium (Protonix Tab) 40 mg BID PO 10/02/17 21:00 11/01/17 20:59 10/04/17 08:34 40 MG Sodium Chloride 1,000 ml @ 100 mls/hr Q10H IV 10/02/17 20:15 10/03/17 06:14 DC 10/03/17 00:10 100 MLS/HR Miscellaneous Information (Check Fentanyl Patch Placement) 1 ea QS N/A 10/03/17 00:00 11/02/17 00:00 10/04/17 08:36 1 EA Fentanyl (Duragesic Patch) 75 mcg Q72H TD 10/03/17 00:30 10/17/17 00:29 10/03/17 00:50 75 MCG Thiamine HCl (Vitamin B-1 Tab) 100 mg QAM PO 10/04/17 09:00 11/03/17 08:59 10/04/17 08:35 100 MG Lorazepam 1 mg/ Syringe 1 ml @ 0.5 mls/min Q3H PRN IV 10/03/17 11:00 11/02/17 10:59 10/03/17 12:38 0.5 MLS/MIN Gabapentin (Neurontin Tab) 1,200 mg TODAY@1230 ONCE PO 10/03/17 12:30 10/03/17 12:31 DC 10/03/17 12:38 1,200 MG Gabapentin (Neurontin Tab) 600 mg Q6H PO 10/03/17 18:00 10/04/17 00:01 DC 10/03/17 23:41 600 MG Gabapentin (Neurontin Tab) 600 mg Q8H PO 10/04/17 08:00 10/05/17 00:01 10/04/17 08:34 600 MG Chlordiazepoxide (Librium Cap) 50 mg Q6H PO 10/03/17 12:00 10/04/17 06:01 DC 10/04/17 06:04 50 MG Ondansetron HCl (Zofran Inj) 4 mg NOW STAT IV 10/03/17 18:22 10/03/17 18:25 DC 10/03/17 18:33 4 MG (Jigna Tapia CRNP) Objective Vital Signs Date Time Temp Pulse Resp B/P (MAP) Pulse Ox O2 Delivery O2 Flow Rate FiO2 10/04/17 08:00 36.6 71 16 136/85 (102) 95 Room Air 10/04/17 03:35 36.5 82 18 128/85 (99) 94 Room Air 10/04/17 00:00 Room Air 10/03/17 22:59 36.6 67 16 114/72 (86) 97 Room Air 10/03/17 19:12 36.7 75 20 126/85 (99) 96 Room Air 10/03/17 16:06 36.8 80 18 144/89 (107) 97 Room Air 10/03/17 16:00 96 Room Air 10/03/17 11:20 37.1 89 18 151/83 (105) 96 Room Air (Jigna Tapia CRNP) Physical Exam Notes: General: no distress Eyes: normal inspection, PERLL Respiratory: chest non tender, clear to auscultation, normal breath sounds, no respiratory distress, no accessory muscle use Cardiac: regular rate and rhythm, no rub or gallop, no murmur, no edema, no jvd GI/: active bowel sounds, no abd pain or tenderness, soft, non distended Extremities: normal range of motion, normal strength, non tender Neuro/Psych: alert and oriented x 3, normal mood and affect, CN II-XII intact Skin: normal color, dry (Jigna Tapia CRNP) Laboratory Results Last 24 Hours Test 10/03/17 11:10 Sodium Level 140 mmol/L Potassium Level 3.7 mmol/L Chloride Level 107 mmol/L Carbon Dioxide Level 23 mmol/L Anion Gap 10.0 mmol/L Blood Urea Nitrogen 15 mg/dl Creatinine 0.46 mg/dl Est Creatinine Clear Calc Drug Dose 127.0 ml/min Estimated GFR () 131.6 Estimated GFR (Non- 113.6 BUN/Creatinine Ratio 32.3 Random Glucose 107 mg/dl Calcium Level 7.8 mg/dl (Jigna Tapia CRNP) Assessment and Plan 52yo female with EtOH withdrawal EtOH withdrawal with seizure - patient with history of the same. Reports drinking 1/5 of Vodka daily for the last couple of weeks. Last drink reported to be middle of the night 10/01. +Seizure x 2 10/02, one at home and one in ambulance en route to ER, no further seizure activity. -EtoH level 25 on admission - Given Valium load on admission, continue librium taper with prn Ativan for breakthrough tremors/seizure activity - continue gabapentin protocol -Continuous pulse oximetry -Seizure precautions - patient has history of seizure in setting of ETOH withdrawal - last reported 3 months ago prior to this episode -Banana bag x 1 liter given -continue daily Folic acid and thiamine, patient nauseas and vomiting yesterday so made NPO, asking for diet this morning so will try clears - encourage alcohol cessation - patient refusing alcohol rehab Chronic pain - patient with pain pump in situ. Reports that it is not functioning. - per pain management, this patient is not a candidate to have her pump replaced as she is non compliant with pain medication regimen and alcohol cessation. She was considering have pump replaced in [place] but this is not a viable option as pain management in [place] would not be willing to manage it afterward given her history -Continue Fentanyl patch -Hold additional opioids in setting of benzo administration -Continuous pulse oximetry Gastric ulcers/GERD - no evidence of bleeding at present -Continue Cytotec and BID Protonix Ppx - Lovenox for DVT prophylaxis Code - Full (Jigna Tapia ., ELANA) BARREL RIFLER Physician Supervision Note: I discussed with Jigna Tapia BARREL RIFLER and agree with findings and plan as documented in the note. Any exceptions or clarifications are listed here: None Patient continues with medical treatment of alcohol withdrawal Documented By: Bob Varela (Bob Varela M.D.)
[2017-10-04] MEDS: LORAZEPAM INJ 1 MG in SYRINGE 0.5 ML IV PRN (08:58)
[2017-10-04] MEDS: LORAZEPAM 0.5 MG TAB PO PRN ×3 (13:49→23:36)
[2017-10-04] MEDS: CHLORDIAZEPOXIDE 50MG Q8H DOSE PO SCH ×2 (13:49→21:48)
[2017-10-04] MEDS ORDERED: LOPERAMIDE HCL 2 MG CAP PO PRN (20:00)
[2017-10-04] MEDS: ENOXAPARIN 40 MG/0.4 ML SYR SC SCH (21:48)
[2017-10-05 04:53] VITALS: BP 114/80; PULSE 71; TEMP 36.6; O2SAT 96
[2017-10-05] MEDS: CHLORDIAZEPOXIDE 50MG Q8H DOSE PO SCH (06:16)
[2017-10-05 06:30] LABS: HEMATOCRIT 36.1 % (37-47); HEMOGLOBIN 11.6 g/dL (12.0-16.0); MEAN CELL VOLUME 86.2 fL (80-100); MEAN CORPUSCULAR HEMOGLOBIN 27.7 pg (25-34); MEAN CORPUSCULAR HGB CONC 32.1 g/dl (32-36); MEAN PLATELET VOLUME 10.1 fL (7.4-10.4); PLATELET COUNT 110 K/uL (130-400); RED CELL DISTRIBUTION WIDTH CV 18.6 % (11.5-14.5); RED CELL DISTRIBUTION WIDTH SD 57.2 fL (36.4-46.3); WHITE BLOOD COUNT 1.65 K/uL (4.8-10.8)
[2017-10-05 06:41] LABS: CREATININE 0.69 mg/dl (0.60-1.20)
[2017-10-05 07:32] VITALS: BP 116/81; PULSE 87; TEMP 36.9; O2SAT 96
[2017-10-05 08:23] LABS: HEMATOCRIT 36.3 % (37-47); HEMOGLOBIN 11.5 g/dL (12.0-16.0); MEAN CELL VOLUME 85.8 fL (80-100); MEAN CORPUSCULAR HEMOGLOBIN 27.2 pg (25-34); MEAN CORPUSCULAR HGB CONC 31.7 g/dl (32-36); RED CELL DISTRIBUTION WIDTH CV 18.4 % (11.5-14.5); RED CELL DISTRIBUTION WIDTH SD 57.1 fL (36.4-46.3)
[2017-10-05] MEDS: PANTOprazole SOD 40 MG TAB PO SCH (08:23)
[2017-10-05] MEDS: THIAMINE HCL 100 MG TAB PO SCH (08:23)
[2017-10-05] MEDS: LORAZEPAM 0.5 MG TAB PO PRN (08:23)
[2017-10-05] MEDS: MISOPROSTOL 100 MCG TAB PO SCH (08:23)
[2017-10-05] MEDS: CHECK FENTANYL PATCH PLACEMENT SCH (08:25)
[2017-10-05 08:33] LABS: INR 1.1 (0.9-1.1); MEAN PLATELET VOLUME 8.3 fL (7.4-10.4); PLATELET COUNT 86 K/uL (130-400)
[2017-10-05 08:50] LABS: ALBUMIN 3.3 gm/dl (3.4-5.0); CALCIUM 8.2 mg/dl (8.5-10.1); CREATININE 0.59 mg/dl (0.60-1.20); POTASSIUM 3.7 mmol/L (3.5-5.1)
[2017-10-05 08:53] LABS: TOTAL PROTEIN 6.1 gm/dl (6.4-8.2)
[2017-10-05] MEDS ORDERED: GABAPENTIN 600MG Q12H DOSE PO SCH (12:00)
[2017-10-05] MEDS ORDERED: CHLORDIAZEPOXIDE 25MG Q8H DOSE PO SCH (14:00)
--- NOTE | 2017-10-05 15:20 | Discharge Instructions ---
Discharge Instructions Date of Service Oct 05, 2017. Admission Reason for Admission: Alcohol Withdrawal Discharge Discharge Diagnosis / Problem: alcohol withdrawal Discharge Goals Goal(s): Improve disease control Activity Recommendations Activity Limitations: resume your previous activity . Current Hospital Diet Patient's current hospital diet: Regular Diet Discharge Diet Recommended Diet: Regular Diet Pending Studies Studies pending at discharge: no Medical Emergencies . Who to Call and When: Medical Emergencies: If at any time you feel your situation is an emergency, please call 911 immediately. . Non-Emergent Contact Non-Emergency issues call your: Primary Care Provider Call Non-Emergent contact if: you have any medication questions . . "Provider Documentation" section prepared by Jigna Tapia. .
--- NOTE | 2017-10-05 15:27 | Discharge Summary ---
Discharge Summary Date of Service Oct 05, 2017. Discharge Summary Admission Date: Oct 02, 2017 at 19:55 Discharge Date: Oct 05, 2017 Discharge Disposition: Home Principal Diagnosis: alcohol withdrawal with seizure Problems/Secondary Diagnoses: chronic pain, GERD Immunizations: Have You Had Influenza Vaccine: Unknown History of Tetanus Vaccine?: Unknown History of Pneumococcal: Unknown History of Hepatitis B Vaccine: Unknown Procedures: Head CT, Cervical Spine CT Medication Reconciliation Continued Medications: Fentanyl (Fentanyl) 75 Mcg Tdsy 75 MCG TD Q72H Folic Acid (Folic Acid) 1 Mg Tab 1 MG PO QD Hydrocodone/Acetaminophen 7.5MG/325MG (Eclectic 7.5MG/325MG) Tab 1 TAB PO Q6 PRN for Pain, TAB PRN PAIN Hydroxyzine HCl (Hydroxyzine HCl) 25 Mg Tab 25 MG PO Q6 PRN for Anxiety Mirtazapine (Remeron) 15 Mg Tab 15 MG PO HS Misoprostol (Cytotec) 100 Mcg Tab 100 MG PO QID Pantoprazole (Pantoprazole Sodium) 40 Mg Tab 40 MG PO BID Sucralfate (Carafate) 1 Gm/10 Ml [place] 10 ML PO QID PRN for abdominal pain for 30 Days, #1200 ML Discontinued Medications: Clindamycin HCl (Clindamycin HCl) 1 Homepack Ea 2 CAP PO Q6 Discharge Exam I did not evaluate the patient today as she left against medical advice before I saw her Hospital Course 52yo female with EtOH withdrawal EtOH withdrawal with seizure - patient with history of the same. Reports drinking 1/5 of Vodka daily for the last couple of weeks. Last drink reported to be middle of the night 10/01. +Seizure x 2 10/02, one at home and one in ambulance en route to ER, no further seizure activity. -EtoH level 25 on admission - Given Valium load on admission, given librium taper with prn Ativan for breakthrough tremors/seizure activity - given gabapentin protocol -Continuous pulse oximetry -Seizure precautions - patient has history of seizure in setting of ETOH withdrawal - last reported 3 months ago prior to this episode -Banana bag x 1 liter given - given daily Folic acid and thiamine, patient nauseas and vomiting yesterday so made NPO, asking for diet this morning so will try clears - encourage alcohol cessation - patient refusing alcohol rehab - white count today dropped from 7.47 to 1.8 , platelets dropped from 236,000 to 86,000 Chronic pain - patient with pain pump in situ. Reports that it is not functioning. - per pain management, this patient is not a candidate to have her pump replaced as she is non compliant with pain medication regimen and alcohol cessation. She was considering have pump replaced in [place] but this is not a viable option as pain management in [place] would not be willing to manage it afterward given her history -Continue Fentanyl patch -Held additional opioids in setting of benzo administration -Continuous pulse oximetry Gastric ulcers/GERD - no evidence of bleeding at present -Continue Cytotec and BID Protonix Dispo: patient left against medical advice this morning PHOTOSTAT OPERATOR Physician Supervision Note: I discussed with Jigna Tapia PHOTOSTAT OPERATOR and agree with findings and plan as documented in the note. Any exceptions or clarifications are listed here: None Patient left AMA time to prepare this discharge is based upon discussions with nursing staff and preparation of documents Documented By: Bob Varela Total Time Spent: Greater than 30 minutes This includes examination of the patient, discharge planning, medication reconciliation, and communication with other providers. Discharge Instructions Please refer to the electronic Patient Visit Report (Discharge Instructions) for additional information.
[2017-10-06] MEDS ORDERED: FENTANYL PATCH REMOVE & WASTE SCH (00:29)
[2017-10-06] MEDS ORDERED: CHLORDIAZEPOXIDE 10MG Q12H DOSE PO SCH (18:00)
[2017-10-07] MEDS ORDERED: GABAPENTIN 600MG X1 DOSE PO SCH (00:01)
== END 2017-10-05 09:35 | disposition left against medical advice (07) | DRG 894 ==
LOC: EDBD 14:25 → C.EDB 14:26 → C.MED 19:55 → ENRESERV 20:14 → C.MED 22:41
PROVIDERS: ADMIT Internal Medicine; ATTEND Nurse Practitioner Family
DX: F10.239 Alcohol dependence with withdrawal, unspecified (principal); K21.9 Gastro-esophageal reflux disease without esophagitis; R56.9 Unspecified convulsions; G89.29 Other chronic pain; Z79.2 Long term (current) use of antibiotics; Z79.899 Other long term (current) drug therapy

== ENCOUNTER 2018-04-09 02:57 | Inpatient (IN) ==
[2018-04-09] MEDS ORDERED: ICU PROTOCOL FOR HYPERGLYCEMIA PRN (10:51)
[2018-04-09] MEDS ORDERED: SODIUM CHLORIDE 0.9% 1000ML 1,000 ML IV SCH (11:00)
[2018-04-09] MEDS: SODIUM CHLORIDE 0.9% 1000ML 1,000 ML IV SCH ×2 (11:43→19:31)
[2018-04-09] MEDS: FOLIC ACID 1 MG in SYRINGE 9.8 ML IV SCH (11:43)
[2018-04-09 11:46] LABS: Albumin Level 2.9 gm/dl (3.4-5.0); BUN Creatinine Ratio 32.9 (10-20); Calcium 6.2 mg/dl (8.5-10.1); Creatinine Clr Calc Pharmacy 42.2 ml/min; Est GFR (African American) 50.6; Est GFR (Non-African American) 43.6; Potassium 2.9 mmol/L (3.5-5.1)
[2018-04-09 11:52] LABS: Hematocrit (blood only) 30.7 % (37-47); Hemoglobin 10.2 g/dL (12.0-16.0); Mean Corpuscular Hgb Conc 33.2 g/dL (32-36); Mean Corpuscular Volume 94.2 fL (80-100); Mean Platelet Volume 9.7 fL (7.4-10.4); Nucleated RBC # (auto) 0.02 K/uL (0-0); Nucleated RBC % (auto) 0.7 %; Platelet Count 30 K/uL (130-400); RDW Coefficient of Variation 19.1 % (11.5-14.5); RDW Standard Deviation 66.1 fL (36.4-46.3); Red Blood Count 3.26 M/uL (4.2-5.4); White Blood Count 3.22 K/uL (4.8-10.8)
[2018-04-09 11:53] LABS: Anisocytosis Present; Immature Granulocytes # (auto) 0.01 K/uL (0.00-0.02); Immature Granulocytes % (auto) 0.3 %; Lymphocytes # (auto) 0.13 K/uL (1.2-3.4); Monocytes # (auto) 0.25 K/uL (0.11-0.59); Monocytes % (auto) 7.8 %; Neutrophils # (auto) 2.83 K/uL (1.4-6.5); Neutrophils % (auto) 87.9 %; Pappenheimer Bodies 1+; Platelet Estimate SIGNIFIC DECREASED (Normal)
[2018-04-09 12:06] LABS: Albumin Globulin Ratio 1.3 (0.9-2); Bilirubin,Total 4.8 mg/dl (0.2-1); Globulin 2.2 gm/dl (2.5-4.0); Total Protein 5.1 gm/dl (6.4-8.2); Troponin I 0.215 ng/ml (0-0.045)
[2018-04-09] MEDS: ICU ELECTROLYTE REPLACEMENT PROTOCOL PRN ×2 (12:15→16:56)
--- NOTE | 2018-04-09 12:15 | XRay Report ---
XR chest 1V portable CLINICAL HISTORY: 53 years-old Female presenting with central venous catheter placement, altered ment al status. TECHNIQUE: Portable upright AP view of the chest was obtained. COMPARISON: 08/03/2017. FINDINGS: Right subclavian central venous catheter terminates in the superior cavoatrial junction. Atherosclero sis of aortic arch. Cardiac silhouette normal in size. Prominence of the superior mediastinal contour along the right paratracheal region likely relates to MOHAWK patient rotation and mildly low lung volum es. Vascular crowding as a result of mildly low lung volumes. Elevation of the right hemidiaphragm. P ulmonary vascular prominence. No focal opacity. No large effusion or pneumothorax. Osseous structures normal. Cholecystectomy clips noted. IMPRESSION: 1. Appropriately positioned right subclavian central venous catheter. No pneumothorax. 2. Low lung volumes with hypoventilatory changes. 3. Mild volume overload suggested. Electronically signed by: Luis A Cali M.D. 04/09/2018 12:14 PM
[2018-04-09] MEDS ORDERED: POTASSIUM CHLORIDE / WTR 10 MEQ/100 ML PLCT IV SCH (12:30)
[2018-04-09] MEDS ORDERED: CALCIUM GLUCONATE 10% 1,000 MG in SODIUM CHLORIDE 0.9% 50 ML IV ONE (12:30)
[2018-04-09] MEDS: POTASSIUM CHLORIDE / WTR 20 MEQ/100 ML PLCT IV SCH ×4 (12:40→19:17)
[2018-04-09] MEDS: methylPREDNISolone 40 MG in SYRINGE 0 ML IV SCH (12:41)
--- NOTE | 2018-04-09 13:18 | Psychiatric Consultation ---
Date of Consultation April 09, 2018 Impression / Recommendations (1) Altered mental state: Likely multifactorial, due to alcohol overdose/withdrawal, dehydration, UTI, sepsis, substance use as well (history of abusing multiple controlled substances; no drug screen results from the outside hospital in the EMR). Will order a drug screen now. -Per PDMP, patient is not currently prescribed any controlled substances. She last filled fentanyl prescription from Dr. Kevin Vera in [place] in January 2018, and filled a one-week supply of Lorazepam from [facility] in [place], [place] over a month ago. In the past year, she has filled 32 controlled substance prescriptions from 7 different prescribers. Would avoid the use of controlled substances given her addictions history, and recommend coordination of care with her current outpatient physicians. -There is an active 302 warrant based on the petitioner statement that she voiced desire to and a plan to drink herself to , was noncompliant with psychotropic medications, and was found unconscious and intoxicated, clutching a vodka bottle. On my assessment she denies SI, but is still altered , not a reliable historian, and we will need to gather more information towards the need for an involuntary psychiatric hospitalization. I have asked the liaison nurse to contact the petitioner for additional information, and if it is determined that she has an outpatient psychiatrist, we should contact that individual as well. -As she is on a 302 warrant, she is unable to leave AMA. Present on Admission?: Yes Risk Factors Assessment Male: No : Yes Do You Have Access To A Gun?: No Health Problems: Yes Mental Health Diagnoses: Yes Substance Use Disorders: Yes Previous Psychiatric Hospitalization: Yes Psych History Identifying Data 53-year-old female from [place] who has a history of alcohol dependence, anxiety NOS, and multiple hospitalizations and previous psychiatric consultations who was admitted to the ICU on transfer from an outside hospital. Psychiatry was consulted because she has an active 302 warrant. Chief Complaint Patient mumbling incoherently. 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 She was apparently taken to [facility] ER yesterday after she was found unresponsive at home, clutching a bottle of vodka. The ER note on the outside hospital from last night indicates that she presented after drinking alcohol for 3-4 days without any food or water, was not taking medications, and was found unconscious. She was lethargic and a poor historian , and reported abdominal pain. A subclavian central line was inserted as they were unable to obtain peripheral access. Lab studies indicated leukopenia, thrombocytopenia, hyponatremia, hypokalemia, hyperammonemia, AST 1142, ALT 222, , amylase 275, and lipase of over 17,000. Creatinine was elevated at 2.95. Blood alcohol level was 179. An abdominal and pelvic CT showed pancreatitis. EKG was normal sinus rhythm, and chest x-ray was normal. She had coffee-ground emesis in the ER and received IV Protonix. She received IV fluids and lactulose , Zosyn, vancomycin, fentanyl, and Compazine and blood cultures were drawn. She was diagnosed with sepsis and transferred to [facility] this morning, where she is admitted to the ICU. There is an active 302 warrant in her chart, petitioned by Joao gutierres, which states the patient stopped taking her medications, said she was going to drink herself to and did not want to live. The petitioner's brother went to the patient's home and found her unconscious in the position holding a bottle of vodka. On my assessment, the patient is very difficult to understand , at times mumbling incoherently. She is confused, picking at her blankets, but knows that she is in [place] and that she is hospitalized for an alcohol overdose. She says "I was a bad girl, my friend , I drink for 2 days, got myself sick." She says she called for an ambulance herself, and denies that she was suicidal. She says she lives alone in [place], and has no supports. She denies any mental health history (although she has been admitted here before and has multiple psychiatric diagnoses), and denies any current needs for mental health treatment. She is asking for fentanyl, stating "they gave it to me yesterday and it made me feel good." She admits that she went on an alcohol binge the last few days, and says that prior to that she had not drank since she was a teenager. She then admits to being hospitalized in the recent past for alcohol withdrawal. She says the only medication she takes at home is Prilosec. 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 Outpatient Services: Patient denies Previous Psych Admissions: Patient denies, but per records she was hospitalized on our behavioral health unit in 2003. At that time, she was ordering multiple medications off the Internet, abusing opiates and Ambien, and was sent to inpatient drug rehab in [place]. Do You Have Access To A Gun?: No Past Medication Trials: Patient denies, but per records she has been on duloxetine, mirtazapine and venlafaxine XR. Allergies Allergy/AdvReac Type Severity Reaction Status Date / Time clarithromycin Allergy Intermediate HIVES Verified 08/03/17 04:46 aspirin Allergy Mild Verified 08/03/17 04:46 tramadol Allergy Mild Verified 08/03/17 04:46 oxaprozin Allergy Unknown Verified 08/03/17 04:46 Home Medications Home Medications Medication Instructions Recorded Confirmed Type Folic Acid 1 mg PO QD #0 06/01/17 History MIRTAZAPINE (REMERON) 15 mg PO HS #0 06/01/17 History MISOPROSTOL (CYTOTEC) 100 mg PO QID #0 06/01/17 History Pantoprazole (Pantoprazole Sodium) 40 mg PO BID #0 06/01/17 History SUCRALFATE (CARAFATE) 10 ml PO QID PRN 30 Days #1200 ml 06/01/17 History Clindamycin HCl 2 cap PO Q6 #0 10/02/17 History Fentanyl 75 mcg TRANSDERMAL Q72H #0 10/02/17 History Hydrocodone/Acetaminophen 1 tab PO Q6 PRN #0 tab 10/02/17 History 7.5MG/325MG ([place] 7.5MG/325MG) Hydroxyzine HCl 25 mg PO Q6 PRN #0 10/02/17 History Substance Abuse History Long history of abusing multiple substances, including prescription opiates, cannabis, alcohol, and sedative hypnotics. History of hospitalizations for delirium related to substance abuse. Was hospitalized here in multiple times in 2018 for alcohol withdrawal with seizures. Was sent to rehab after a hospitalization here in 2003, but did not complete it. Has ordered Darvocet and Ambien off the Internet in the past. Personal History Living Arrangements Comments: Patient reports she lives alone in [place], but the EMR indicates she lives in [place]. She states she has no supports or family members. Employment Status: Unemployed (Patient states she supports herself by a "the government, for my broken legs.") Beliefs That Will Affect Care: None Patient History Medical History Alcohol abuse Factitious disorder Opiate addiction Sedative abuse Family History Other Aneurysm Cancer Stroke Social History Current Living Situation: Alone Smoking Status: Former smoker Hx Alcohol Use: Yes Alcohol type: hard liquor Alcohol Intake Frequency: 3 or more drinks per day Hx Substance Use: Yes substance use type: opiates and prescription drug Substance Use Type Other:: dilaudid, ativan, pt has indwelling pain pump Beliefs That Will Affect Care: None Preferred Language: Italian Communication Ability: Impaired Boilerhouse Mechanic Required: No Physical Exam Mental Examination Unkempt white female appearing her stated age. Lips are cracked, with dried blood. Lying in bed, restless, agitated. Picking at the blankets, O2 nasal cannula is displaced. She is alert, oriented to 3/8. She is a limited historian, giving inconsistent reports. Speech is incoherent at times, mumbling. Affect is restricted to uncomfortable and agitated. Thoughts are goal-directed. Denies SI, HI, hallucinations. Perseverates on wanting opiates. Insight and judgment are impaired. Vital Signs (Past 24 Hours) Last Vital Signs Temp 36.9 C 04/09/18 10:19 Pulse 122 H 04/09/18 10:19 Resp 20 04/09/18 10:19 BP 136/85 04/09/18 10:19 Pulse Ox 100 04/09/18 10:19 Review of Systems All systems reviewed & are unremarkable except as noted in HPI & below She is restless and agitated. Patient reports pain, first in her legs, then in her side. Results & Data Medications Administered Sodium Chloride (Nss 1000ml) 1,000 mls @ 150 mls/hr IV .Q6H40M MICHELLE Stop: 05/09/18 11:14 Last Admin: 04/09/18 11:43 Dose: 150 mls/hr Methylprednisolone 40 mg/ (Syringe) 0.64 mls @ 1.5 mls/min IV Q12H [facility] Stop: 05/09/18 11:29 Last Admin: 04/09/18 12:41 Dose: 1.5 mls/min Folic Acid 1 mg/ Syringe 10 mls @ 5 mls/min IV QAM [facility] Stop: 05/09/18 11:59 Last Admin: 04/09/18 11:43 Dose: 5 mls/min Potassium Chloride (K Reid / Wtr) 20 meq in 100 mls @ 50 mls/hr IV Q2H [facility] Stop: 04/09/18 16:29 Last Admin: 04/09/18 12:40 Dose: 100 mls/hr
[2018-04-09 13:27] LABS: Appearance Urine Clear (Clear); Blood Urine 3+ (Negative); Color Urine Dark Yellow; Epithelial Cell Urine Auto >30 /lpf (0-5); Glucose Urine UA Negative (Negative); Ketones Urine 2+ (Negative); Leukocyte Esterase Urine 1+ (Negative); Nitrite Urine Negative (Negative); Protein Urine 2+ (Negative); Specific Gravity Urine 1.017 (1.000-1.030); Urobilinogen Urine Negative (Negative)
[2018-04-09 13:33] LABS: Bilirubin Urine 1+ (Negative); Ictotest Urine Positive (Negative)
[2018-04-09] MEDS: PANTOprazole 40 MG in DEXTROSE 5% 100 ML IV SCH ×3 (13:38→21:21)
[2018-04-09] MEDS: THIAMINE HCL 300 MG in SODIUM CHLORIDE 0.9% 50 ML IV SCH ×2 (13:38→19:19)
[2018-04-09 13:41] LABS: Bacteria Urine Automated 1+ (Negative)
--- NOTE | 2018-04-09 14:37 | Critical Care Consultation ---
Date of Consultation April 09, 2018 Assessment & Plan (1) Alcohol withdrawal: Impression: 1. Alcoholism, all her presentation diagnosis are related to alcohol. This is not the case of DKA, lactic acidosis or acute KS. 2. Alcoholic hepatitis, with elevated transaminase. 3. Alcoholic pancreatitis, with elevated lipase. 4. Rhabdomyolysis due to immobility after binge drinking. 5. Acute kidney insufficiency due to mild case of rhabdomyolysis and dehydration due to alcoholism. 6. Elevation in troponin in the face of hypotension and dehydration requiring 7 L of IV fluid. 7. Although the patient might have had liver cirrhosis, I would be cautious with IV fluid administered to her. 8. Alcohol related gastritis, hematocrit has been stable at 33 after aggressive hydration. 9. 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 10. Depression with suicidal ideation. Plan: 1. I will start the patient on phenobarbital a regular basis as well as as needed. 2. I would watch for the patient mental status as she does not have a good liver function. 3. I will check the labs in the afternoon including CPK and transaminases. 4. The anion gap without osmolar Is consistent with alcohol ingestion and acute renal failure loss of bicarb. 5. The lactic acidosis is due to liver failure, it represent type I, no need to reflex a trend. 6. Due to profound thrombocytopenia, I would use Venodyne boots only for DVT prophylaxis. 7. Agree with Protonix IV, can be changed to twice daily. 8. High-dose thiamine IV for the first 24 hours to prevent Wernicke's. 9. Folic acid. 10. Normal saline at 150 mL an hour, can be adjusted based on the patient's symptoms. 11. Psych consult for suicidal ideation. Appreciated. 12. Pain management consult for evaluation her pain pump. The patient claimed that she has not refill it in the past 4 years. Appreciated. 13. Discussed in details with the staff on rounds, the patient will need one-on -one sitter. Critical care time spent with the patient was 60 minutes. Thank you History of Present Illness Reason for Consultation: Alcoholism and GI bleeding. Requesting Physician: Dr. Varela Attending Physician: Bob Varela MD History of Present Illness Dear Dr. Varela: Thank you for the kind referral of Mrs. gutierres to critical care service. This is 53-year-old female with history of alcoholism, chronic pain syndrome status post narcotic pump implanted in her peritoneal cavity, history of fibromyalgia, depression, total hip replacement, gastric bypass, GI bleeding, alcoholic hepatitis, seizure activity in the past, rhabdomyolysis as well in the past, presented to the hospital after she was binge drinking for the past several days , the patient was taken to a nearby hospital due to weather changes that did not allow her to come into our institution. She was transferred in the morning to our institution for further management. When I interviewed the patient, she appeared confused, somewhat tremulous, she denies any pain at the moment, apparently she claims that she has been having pain all over and she did have suicidal thoughts. She claimed that her pain pump is empty and not working for the past 4 years. I could not verify it. The patient has been having nausea and vomiting, was noted to be coffee-ground, and could not be verified in our institution. No diarrhea, no abdominal pain itself, no chest pain, no melena, no hematochezia, no hematemesis, or hemoptysis. Her altered mental status has been improving after the patient received several liters of IV fluid at the other institution, she denies any visual disturbances, no constitutional symptoms, no sick contact. Review of system otherwise was unremarkable considering her confusion. Family history is not contributing to her current illness, she is ex-smoker quit 2 weeks ago. She is heavy drinker with binge drinking most recently prior to admission to the hospital. Her past surgical history consistent with pain pump implanted in the right upper quadrant, cholecystectomy, total hip replacement left side, history of multiple falls. Allergies Allergy/AdvReac Type Severity Reaction Status Date / Time clarithromycin Allergy Intermediate HIVES Verified 08/03/17 04:46 aspirin Allergy Mild Verified 08/03/17 04:46 tramadol Allergy Mild Verified 08/03/17 04:46 oxaprozin Allergy Unknown Verified 08/03/17 04:46 Home Medications Home Medications Medication Instructions Recorded Confirmed Type Folic Acid 1 mg PO QD #0 06/01/17 History MIRTAZAPINE (REMERON) 15 mg PO HS #0 06/01/17 History MISOPROSTOL (CYTOTEC) 100 mg PO QID #0 06/01/17 History Pantoprazole (Pantoprazole Sodium) 40 mg PO BID #0 06/01/17 History SUCRALFATE (CARAFATE) 10 ml PO QID PRN 30 Days #1200 ml 06/01/17 History Clindamycin HCl 2 cap PO Q6 #0 10/02/17 History Fentanyl 75 mcg TRANSDERMAL Q72H #0 10/02/17 History Hydrocodone/Acetaminophen 1 tab PO Q6 PRN #0 tab 10/02/17 History 7.5MG/325MG ([place] 7.5MG/325MG) Hydroxyzine HCl 25 mg PO Q6 PRN #0 10/02/17 History Patient History Medical History Alcohol abuse Factitious disorder Opiate addiction Sedative abuse Family History Other Aneurysm Cancer Stroke Social History Current Living Situation: Alone Smoking Status: Former smoker Hx Alcohol Use: Yes Alcohol type: hard liquor Alcohol Intake Frequency: 3 or more drinks per day Hx Substance Use: Yes substance use type: opiates and prescription drug Substance Use Type Other:: dilaudid, ativan, pt has indwelling pain pump Beliefs That Will Affect Care: None Preferred Language: Maori Communication Ability: Impaired Gizzard Peeler Required: No Review of Systems 14 systems has been reviewed, to the best that the patient can answer me, there were unremarkable except for what is mentioned in the first section. Physical Exam 2 Vital Signs (Past 24 Hours): Last Vital Signs Temp 36.9 C 04/09/18 10:19 Pulse 122 H 04/09/18 10:19 Resp 20 04/09/18 10:19 BP 136/85 04/09/18 10:19 Pulse Ox 100 04/09/18 10:19 Physical Exam: Middle-aged female, appears tremulous, does not appear to be in any distress, maintaining her oral airway, she does have erythema in her oral mucosa, no JVD, no lymphadenopathy in the neck area, tremulous in her eyelids and her fingers, S1-S2 regular rate and rhythm, rhonchi bilaterally, abdomen is soft and benign and foreign body was felt which represent the pain pump, no edema in the periphery, she does have one bruise at her right elbow, vital signs otherwise were stable, neurologically apart from tremor she is nonfocal. Results & Data Laboratory Results Her laboratory were reviewed which showed leukopenia, hematocrit of 30.7, her baseline is 36, platelets of 30 with a baseline between 60-110, potassium was 2.9 which was repleted, bicarb is 15, BUN/creatinine 45 and 1.37. Glucose is elevated and her osmolality was 317 and no osmolar gap. She has only anion gap. Elevated LFTs were noted. With AST and ALT are elevated. The ratio of AST to ALT is greater than 1. Troponin is slightly positive. CPK was 1400. And BUN and creatinine were elevated at 45 and 1.37. Down from previous reading at [facility] Diagnostic Findings Chest x-ray showed subclavian line in place, small lung volumes, no infiltrate.
--- NOTE | 2018-04-09 15:53 | History & Physical Report ---
Date of Service April 09, 2018 Assessment & Plan (1) Alcoholic hepatitis: Patient has transaminases in the thousand range she is having increased alcohol intake of late. Some concern of alcoholic hepatitis. However her coagulation studies seem to be relatively intact. The patient in the intensive care unit and follow her LFTs she is stopped her alcohol use will watch her for alcohol withdrawal intensive care physician is chosen phenobarbital for this prevention Patient is alcohol associated thrombocytopenia (2) Coffee ground emesis: Reported coffee-ground emesis while at [facility] H&H were 10 and 33 patient is on a Protonix drip she will be kept n.p.o. except for ice chips (3) Hypokalemia: Patient is hypokalemic this is in the face of acidemia this may worsen we will continue to watch carefully (4) Acute kidney injury: By the outpatient labs patient's creatinine was 2.9 she was hydrated aggressively we will have her on maintenance fluids and recheck her labs frequently (5) Suicide attempt: Patient is a 302 the warranted signed the patient on suicide watch and she will likely need to go to psychiatric care once she is stabilized medically History of Present Illness Primary Care Provider: Kevin Vera Patient is a transfer from [facility] where she presented after arrangements are being made for her to have a 302. The family pursue to 3 or 2 because the patient was attempting to drink alcohol to the extent to kill herself. She not been eating or drinking over the last few days. The patient was brought to [place] [facility] where she was found to have marked acidosis, elevation of LFTs consistent with alcoholic hepatitis, pancreatitis, she vomited coffee-ground emesis, and she had elevation of her troponin without acute EKG changes. In the ER she is stabilized with volume of crystalloid, was given bicarbonate was transferred to our facility. Upon arrival to our facility she is awake alert and oriented her vital signs were stable she is placed in the ICU due to the potential of catastrophe occurring given her multiple organ systems being involved. Allergies Allergy/AdvReac Type Severity Reaction Status Date / Time clarithromycin Allergy Intermediate HIVES Verified 08/03/17 04:46 aspirin Allergy Mild Verified 08/03/17 04:46 tramadol Allergy Mild Verified 08/03/17 04:46 oxaprozin Allergy Unknown Verified 08/03/17 04:46 Home Medications Home Medications Medication Instructions Recorded Confirmed Type Folic Acid 1 mg PO QD #0 06/01/17 History MIRTAZAPINE (REMERON) 15 mg PO HS #0 06/01/17 History MISOPROSTOL (CYTOTEC) 100 mg PO QID #0 06/01/17 History Pantoprazole (Pantoprazole Sodium) 40 mg PO BID #0 06/01/17 History SUCRALFATE (CARAFATE) 10 ml PO QID PRN 30 Days #1200 ml 06/01/17 History Clindamycin HCl 2 cap PO Q6 #0 10/02/17 History Fentanyl 75 mcg TRANSDERMAL Q72H #0 10/02/17 History Hydrocodone/Acetaminophen 1 tab PO Q6 PRN #0 tab 10/02/17 History 7.5MG/325MG ([place] 7.5MG/325MG) Hydroxyzine HCl 25 mg PO Q6 PRN #0 10/02/17 History Past Med/Surg History Medical History Alcohol abuse Factitious disorder Opiate addiction Sedative abuse Family History Other Aneurysm Cancer Stroke Social History Current Living Situation: Alone Smoking Status: Former smoker Hx Alcohol Use: Yes Alcohol type: hard liquor Alcohol Intake Frequency: 3 or more drinks per day Hx Substance Use: Yes substance use type: opiates and prescription drug Substance Use Type Other:: dilaudid, ativan, pt has indwelling pain pump Beliefs That Will Affect Care: None Preferred Language: Kyrgyz Communication Ability: Impaired Laborer 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 Dock Required: No Review of Systems ROS: Looks chronically ill No double vision blurry vision No problems with speech or swallowing No palpitations, chest pain or pressure persistent shortness of breath Diffuse mild abdominal pain with associated nausea / vomiting No burning urine urine frequency or changes in color Chronic musculoskeletal pain with failed pain pump in her abdomen No skin rashes or oral lesions No unusual bruising or bleeding No focused back pain or numbness or loss of strength No changes in memory or confusion Physical Exam 2 Vital Signs (Past 24 Hours): Last Vital Signs Temp 36.9 C 04/09/18 10:19 Pulse 120 H 04/09/18 14:00 Resp 21 04/09/18 14:00 BP 142/85 H 04/09/18 14:00 Pulse Ox 98 04/09/18 14:00 The patient thin and in moderate distress Vital signs as documented. Head exam is unremarkable. normocephalic, atraumatic Neck is with jugular venous distension, thyromegaly, or lymphademopathy Lungs are diminished but no focal air loss Cardiac exam reveals tachycardic Abdominal exam reveals mild diffusely tender she has a pain pump in her right lower quadrant which is mobile and nontender, normal bowel sounds, no masses, no organomegaly Extremities are nonedematous and both pedal pulses are present Neurologic exam is A&Ox3, no focal deficits, strength is equal bilateral Psychologically seems anxious and depressed Skin is warm Dry
[2018-04-09 16:30] LABS: Hematocrit (blood only) 29.9 % (37-47); Mean Corpuscular Hgb Conc 33.4 g/dL (32-36); Mean Corpuscular Volume 92.9 fL (80-100); RDW Coefficient of Variation 19.3 % (11.5-14.5); Red Blood Count 3.22 M/uL (4.2-5.4); White Blood Count 3.71 K/uL (4.8-10.8)
[2018-04-09 16:32] LABS: Echinocytes 2+; Immature Granulocytes # (auto) 0.02 K/uL (0.00-0.02); Immature Granulocytes % (auto) 0.5 %; Lymphocytes # (auto) 0.17 K/uL (1.2-3.4); Lymphocytes % (auto) 4.6 %; Mean Platelet Volume 9.5 fL (7.4-10.4); Monocytes % (auto) 5.4 %; Neutrophils # (auto) 3.32 K/uL (1.4-6.5); Neutrophils % (auto) 89.5 %; Nucleated RBC # (auto) 0.02 K/uL (0-0); Nucleated RBC % (auto) 0.5 %; Platelet Count 25 K/uL (130-400); Platelet Estimate SIGNIFIC DECREASED (Normal)
[2018-04-09 16:37] LABS: BUN Creatinine Ratio 37.7 (10-20); Calcium 6.9 mg/dl (8.5-10.1); Creatinine Clr Calc Pharmacy 48.2 ml/min; Est GFR (African American) 59.3; Est GFR (Non-African American) 51.2
[2018-04-09 16:40] LABS: Amphetamines+Metham, Urine Neg (Neg); Barbiturates, Urine Pos (Neg); Benzodiazepine, Urine Pos (Neg); Cocaine, Urine Neg (Neg); MDMA (Ecstacy), Urine Neg (Neg); Methadone, Urine Neg (Neg); Opiate, Urine Neg (Neg); Phencyclidine, Urine Neg (Neg)
[2018-04-09 16:41] LABS: Albumin Level 3.1 gm/dl (3.4-5.0); Bilirubin Direct 3.9 mg/dl (0-0.2); Bilirubin,Total 5.2 mg/dl (0.2-1); Magnesium 1.6 mg/dl (1.8-2.4); Phosphorus 0.7 mg/dl (2.5-4.9); Total Protein 5.3 gm/dl (6.4-8.2)
[2018-04-09 16:42] LABS: Potassium 3.4 mmol/L (3.5-5.1)
[2018-04-09] MEDS ORDERED: SODIUM PHOSPHATE 3 MMOL/1 ML 5 ML VIAL IV ONE (16:52)
[2018-04-09] MEDS ORDERED: SODIUM PHOSPHATE 30 MMOL in SODIUM CHLORIDE 0.9% 500 ML IV ONE (17:00)
[2018-04-09] MEDS: MAGNESIUM SULFATE / D5W 1 GM/100 ML BAG IV SCH ×2 (17:09→18:02)
[2018-04-09] MEDS: SODIUM BICARBONATE 8.4% 75 MEQ, POTASSIUM CHLORIDE 40 MEQ in SODIUM CHLORIDE 0.45 % 1,0... IV SCH (20:28)
[2018-04-09] MEDS ORDERED: INFLUENZA VIRUS QUAD VACCINE 0.5 ML SYR IM ONE (21:00)
[2018-04-09] MEDS ORDERED: INFLUENZA ADMINISTRATION CHARGE ONE (21:00)
[2018-04-10] MEDS: methylPREDNISolone 40 MG in SYRINGE 0 ML IV SCH ×3 (00:32→23:37)
[2018-04-10] MEDS: THIAMINE HCL 300 MG in SODIUM CHLORIDE 0.9% 50 ML IV SCH ×3 (03:50→19:29)
[2018-04-10] MEDS: PANTOprazole 40 MG in DEXTROSE 5% 100 ML IV SCH (03:50)
[2018-04-10 05:01] LABS: Hematocrit (blood only) 31.9 % (37-47); Hemoglobin 10.7 g/dL (12.0-16.0); Mean Corpuscular Hgb Conc 33.5 g/dL (32-36); Mean Corpuscular Volume 94.1 fL (80-100); Nucleated RBC # (auto) 0.02 K/uL (0-0); Nucleated RBC % (auto) 0.3 %; RDW Coefficient of Variation 19.7 % (11.5-14.5); RDW Standard Deviation 68.6 fL (36.4-46.3); Red Blood Count 3.39 M/uL (4.2-5.4); White Blood Count 5.48 K/uL (4.8-10.8)
[2018-04-10 05:10] LABS: INR 1.3 (0.9-1.1); Prothrombin Time 13.5 Seconds (9.0-12.0)
[2018-04-10 05:12] LABS: Mean Platelet Volume 9.2 fL (7.4-10.4); Platelet Count 32 K/uL (130-400)
[2018-04-10 05:30] LABS: Albumin Level 3.3 gm/dl (3.4-5.0); BUN Creatinine Ratio 36.3 (10-20); Calcium 6.9 mg/dl (8.5-10.1); Est GFR (African American) 85.2; Est GFR (Non-African American) 73.5; Magnesium 2.3 mg/dl (1.8-2.4); Potassium 3.4 mmol/L (3.5-5.1)
[2018-04-10] MEDS ORDERED: POTASSIUM CHLORIDE / WTR 20 MEQ/100 ML PLCT IV ONE (05:37)
[2018-04-10 05:44] LABS: Bilirubin Direct 4.2 mg/dl (0-0.2); Bilirubin,Total 5.3 mg/dl (0.2-1); Phosphorus 1.3 mg/dl (2.5-4.9); Total Protein 5.8 gm/dl (6.4-8.2)
[2018-04-10] MEDS ORDERED: POTASSIUM PHOS 3 MMOL/1 ML INFUSION IV STA ×2 (05:48→15:51)
[2018-04-10] MEDS ORDERED: POTASSIUM PHOSPHATE 15 MMOL in SODIUM CHLORIDE 0.9% 250 ML IV ONE (06:00)
[2018-04-10 06:03] LABS: Anisocytosis Present; Immature Granulocytes # (auto) 0.01 K/uL (0.00-0.02); Immature Granulocytes % (auto) 0.2 %; Lymphocytes # (auto) 0.13 K/uL (1.2-3.4); Lymphocytes % (auto) 2.4 %; Monocytes # (auto) 0.25 K/uL (0.11-0.59); Monocytes % (auto) 4.6 %; Neutrophils # (auto) 5.09 K/uL (1.4-6.5); Neutrophils % (auto) 92.8 %; Pappenheimer Bodies 1+
[2018-04-10] MEDS ORDERED: PHARMACY GLYCEMIC MGMT CONSULT PRN (06:52)
[2018-04-10] MEDS ORDERED: INSULIN GLARGINE SOLOSTAR 100 UNITS/ML 3 ML PEN SC ONE (07:15)
[2018-04-10] MEDS: SODIUM BICARBONATE 8.4% 75 MEQ, POTASSIUM CHLORIDE 40 MEQ in SODIUM CHLORIDE 0.45 % 1,0... IV SCH (07:29)
--- NOTE | 2018-04-10 08:03 | Critical Care Progress Note ---
Date of Service April 10, 2018 Supervising Physician Co-Signing Physician Notes Reason Critically Ill: 53-year-old female with acute encephalopathy and hyperactive delirium secondary to alcohol withdrawal PLAN: Neuro: Acute encephalopathy -Metabolic versus toxic versus hepatic -Ammonia pending, currently having diarrhea on lactulose -Checking Tylenol to rule out chronic exposure Alcohol withdrawal: Hyperactive delirium -Delirium tremens -Unclear baseline alcohol consumption -On phenobarbital 135 mg every 4 hours scheduled with 65 mg every 2 breakthrough (not given) -Decreasing dosing interval to 6 hours and scaling back breakthrough to every 3 hours -RASS every 4 hours goal RASS 0-1 -Adding propranolol 10 mg 3 times daily Suicidal ideation Psychiatric illness: Major depressive disorder versus personality disorder -Patient under 302 currently undergoing medical stabilization -Unable to confirm psychiatric regimen or home dosing regimen. Chronic pain -Chronic pain pump -Receiving 18 mg IV morphine daily and 2.52 mcg fentanyl daily Resp: Acute hypoxic respiratory failure -Bilateral pleural effusion seen on CT scan -No evidence of pulmonary emboli, concern for pancreatitis -Now on 7 L oxygen mask ABG pending -7.281 oxygen saturation 85% base deficit -13 PCO2 28.4 CV: Tachycardia Elevated troponins -Adrenergic storms secondary to alcohol withdrawal versus non-ST elevation ME versus nutritional deficiency -Propranolol 10 mg 3 times daily -Echocardiogram pending Fluids/Renal: TYRONE present on admission since resolved -Custom IV fluid at this time. -Holding additional IV fluids given amounts through medications will be approximately 65 mL's per hour High gap metabolic acidosis -Recheck lactic acid: Negative ID: Elevated pro-Jerrod however this is in the setting of acute kidney injury no obvious source of infection -Continue observation for infection GI/Nutrition: Transaminitis - Checking Tylenol level question chronic exposure -Empiric Mucomyst -Meld: 16 -Patient would not be deemed a transplant candidate given his suicidal ideation and continued alcohol abuse -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 GI consult for common bile duct pathology Heme: Anemia Thrombocytopenia -Likely anemia and thrombocytopenia secondary to disease process DVT prophylaxis: Chemical prophylaxis contraindicated, SCDs present Endocrine: ICU hyperglycemia protocol Recently removed dextrose from fluids -Mucomyst and dextrose containing solutions -Patient did not get NovoLog dosing this morning will wait for second blood sugar to decide insulin infusion Vascular access: Right subclavian placed at outside hospital Code Status: Full Case management assisting with obtaining medical decision maker: Patient lacks capacity secondary to metabolic encephalopathy I have personally spent 95 minutes of critical care time in the direct management of this patient. This is a life/limb threatening event. This includes time spent evaluating patient, direct bedside care, chart review, placing orders, interpretation of diagnostic studies, discussion with consultants, patient, and/or family members regarding treatment decisions, as well as other required patient management activities. This time is exclusive of all separately billable procedures, and teaching time and separate from and in addition to any other critical care service time. Clinical update: Review echo results new wall motion abnormalities worsened ejection fraction. With increased oxygen requirement will gently diurese. The patient's hemoglobin is greater than 10 no indication for blood transfusion at this point. Aspirin therapy is largely contraindicated as she has significant history of gastrointestinal bleeding and has significant end-stage liver disease with coagulopathy. Cardiology is consulted there does not appear to be any ST elevations at this time we will attempt to achieve better rate control. Will continue with aggressive electrolyte replacement checking BMPs every 6.hours I have personally spent 30 minutes of critical care time in the direct management of this patient. This is a life/limb threatening event. This includes time spent evaluating patient, direct bedside care, chart review, placing orders, interpretation of diagnostic studies, discussion with consultants, patient, and/or family members regarding treatment decisions, as well as other required patient management activities. This time is exclusive of all separately billable procedures, and teaching time and separate from and in addition to any other critical care service time. Physical Exam 2 Vital Signs (Past 24 Hours): Last Vital Signs Temp 36.7 C 04/10/18 04:01 Pulse 130 H 04/10/18 05:00 Resp 28 H 04/10/18 05:00 BP 150/109 H 04/10/18 05:00 Pulse Ox 90 04/10/18 05:00
[2018-04-10] MEDS ORDERED: fentaNYL citrate 100 MCG/2 ML CARP IV ONE (08:10)
[2018-04-10] MEDS ORDERED: ETOMIDATE 2 MG/ML 20 ML VIAL IV ONE (08:10)
[2018-04-10] MEDS ORDERED: SUCCINYLCHOLINE CHLORIDE 20 MG/ML 10 ML VIAL IV ONE (08:10)
[2018-04-10] MEDS ORDERED: IOVERSOL 100ml IV PRN (08:17)
[2018-04-10] MEDS: FOLIC ACID 1 MG in SYRINGE 9.8 ML IV SCH (08:27)
[2018-04-10] MEDS: PANTOprazole 40 MG in SYRINGE 0 ML IV SCH ×2 (08:27→21:23)
--- NOTE | 2018-04-10 08:32 | CT Scan Report ---
CT abdomen wo/w con CT DOSE: 1730.22 mGycm CLINICAL HISTORY: Hepatic failure. Possible pancreatitis. TECHNIQUE: Noncontrast images were obtained through the upper abdomen. Arterial phase imaging was the n performed in a dynamic helical fashion during intravenous administration of 93 cc of Optiray 320. P ortal phase imaging was then acquired. A dose lowering technique was utilized adhering to the princi ples of NADIRA. COMPARISON STUDY: R 03/08/2017 FINDINGS: Noncontrast images reveal bilateral pleural effusions and mild septal edema. There are basi lar atelectatic changes. There is a 5 mm lower pole left renal calculus. Postcontrast images reveal severe hepatic steatosis. No focal masses are visualized. The gallbladder surgically absent. No splenic masses are visualized. No pancreatic masses are visualized. There are no findings suspicious for acute pancreatitis. There i s no significant pancreatic ductal dilatation. Minor pancreatic heterogeneity, likely is related to a rtifact. No adrenal masses are visualized. No renal masses are visualized. There is no evidence for abdominal aortic aneurysm. There is low volume ascites. There is borderline bowel wall thickening involving the colon. IMPRESSION: 1. Mildly limited study from a technical standpoint secondary to motion artifact 2. Interval development of severe hepatic steatosis 3. No ductal dilatation 4. Nonobstructing lower pole left renal calculus 5. Low volume ascites 6. Bilateral pleural effusions with basilar atelectasis and mild septal edema Electronically signed by: Yahir Valencia M.D. 04/10/2018 8:30 AM
[2018-04-10] MEDS ORDERED: METOPROLOL TARTRATE 1 MG/ML VIAL IV SCH (09:15)
[2018-04-10] MEDS: INSULIN ASPART 100 UNITS/ML 3 ML PEN SC SCH ×5 (09:25→21:22)
[2018-04-10 09:32] LABS: Base Excess VBG -9.7 mEq/L; Oxygen Saturation VBG 70.6 %; pH VBG 7.31 (7.36-7.41)
--- NOTE | 2018-04-10 09:32 | Pain Management Consultation ---
Date of Consultation April 10, 2018 Assessment & Plan (1) Presence of intrathecal pump: The intrathecal pump was interrogated as requested. The total daily dose is morphine 0.189 mg/day and fentanyl 2.52 mcg/day. Please call with any questions. (2) Chronic back pain: (3) Fibromyalgia: (4) Anxiety: (5) Chronic alcoholic liver disease: History of Present Illness Attending Physician: Khoi Chi History of Present Illness 53-year-old female with a history of multiple sclerosis, alcoholic cirrhosis, anxiety, opiate dependence, chronic pain complaints and history of intrathecal pump implantation previously managed by [facility] in the outpatient setting with refilling occurring by [facility] [facility]. Pain management was consulted for interrogation of intrathecal pump. The patient had reported that her intrathecal pump had previously. Allergies Allergy/AdvReac Type Severity Reaction Status Date / Time clarithromycin Allergy Intermediate HIVES Verified 08/03/17 04:46 aspirin Allergy Mild Verified 08/03/17 04:46 tramadol Allergy Mild Verified 08/03/17 04:46 oxaprozin Allergy Unknown Verified 08/03/17 04:46 Home Medications Home Medications Medication Instructions Recorded Confirmed Type Folic Acid 1 mg PO QD #0 06/01/17 History MIRTAZAPINE (REMERON) 15 mg PO HS #0 06/01/17 History MISOPROSTOL (CYTOTEC) 100 mg PO QID #0 06/01/17 History Pantoprazole (Pantoprazole Sodium) 40 mg PO BID #0 06/01/17 History SUCRALFATE (CARAFATE) 10 ml PO QID PRN 30 Days #1200 ml 06/01/17 History Clindamycin HCl 2 cap PO Q6 #0 10/02/17 History Fentanyl 75 mcg TRANSDERMAL Q72H #0 10/02/17 History Hydrocodone/Acetaminophen 1 tab PO Q6 PRN #0 tab 10/02/17 History 7.5MG/325MG ([place] 7.5MG/325MG) Hydroxyzine HCl 25 mg PO Q6 PRN #0 10/02/17 History Patient History Medical History Lumbago (Chronic) Multiple sclerosis (Chronic) Alcohol abuse Factitious disorder Opiate addiction Presence of intrathecal pump containing morphine 0.189mg/day and fentanyl 2.52mcg/day miminimal rate Sedative abuse Family History Other Aneurysm Cancer Stroke Social History Current Living Situation: Alone Smoking Status: Former smoker Hx Alcohol Use: Yes Alcohol type: hard liquor Alcohol Intake Frequency: 3 or more drinks per day Hx Substance Use: Yes substance use type: opiates and prescription drug Substance Use Type Other:: dilaudid, ativan, pt has indwelling pain pump Beliefs That Will Affect Care: None Preferred Language: Ethiopian Communication Ability: Impaired Cyber Legal Advisor Required: No Physical Exam 2 Vital Signs (Past 24 Hours): Last Vital Signs Temp 36.7 C 04/10/18 04:01 Pulse 137 H 04/10/18 09:17 Resp 28 H 04/10/18 05:00 BP 138/105 H 04/10/18 09:17 Pulse Ox 90 04/10/18 05:00 Physical Exam: The patient is awake and conversive with a one-to-one sitter present Intrathecal pump is noted to be in the right lower quadrant Results & Data Diagnostic Findings The intrathecal pump was interrogated and found to have a concentration of morphine 30 mg/mL and fentanyl 400 mg/ml with 18.1 mL in the pump reservoir for a refill interval of 2713 days. RAMONITA 11 months. Pump is in minimal rate with a dose of morphine 0.189 mg/day and fentanyl 2.52 mg/day. Interrogation report was placed on the front of the chart.
[2018-04-10] MEDS ORDERED: ACETYLCYSTEINE IV SCH ×2 (09:40→13:49)
[2018-04-10] MEDS ORDERED: DEXTROSE 5% IV SCH ×2 (09:40→13:49)
[2018-04-10 09:57] LABS: iSTAT Allen Test Pass; iSTAT Arterial Blood Gas HCO3 13 meg/L (19-24); iSTAT Arterial Blood Gas pCO2 28 mmHg (35-46); iSTAT Arterial Blood Gas pH 7.29 (7.35-7.45); iSTAT Carbon Dioxide 14 mEq/l (24-31); iSTAT Site R Radial
[2018-04-10 10:23] LABS: Fibrinogen 146 mg/dl (184-400); INR 1.5 (0.9-1.1); Partial Thromboplastin Ratio 1.1; Partial Thromboplastin Time 28.7 Seconds (21.0-31.0); Prothrombin Time 14.6 Seconds (9.0-12.0)
--- NOTE | 2018-04-10 11:09 | Gastrointestinal Consultation ---
Date of Consultation April 10, 2018 Assessment & Plan (1) Alcoholic hepatitis: Appreciate ICU campaign marketing manager managment of poor respiratory status, dehydrate , and electrolyte derangements. Regarding liver disease, suspect her elevated bilirubin represents alcoholic hepatitis. No clear evidence of cirrhosis on imaging and liver bx or other OP testing has not been completed so unable to rule out. Regarding elevated lipase, this likely represents alcoholic pancreatitis though no clear evidence of pancreatitis on Ct with IV contrast which is usually sensitive. Recommend MRCP to r/o bile duct abnormalities that would obstruct the bile duct - but doubt these are present, more likely elevated bilirubin due to alcoholic hepatitis. Will continue to follow closely. Supervising Physician Co-Signing Physician Notes I have seen and examined the patient with ELANA Anne. 53 yo fm with an extensive prior history, prior rygb, psychiatric issues leading to a 302, alcohol dependence, pain pump in her right lower quadrant, transferred from [place] for alcohol intoxication and reported coffee ground emesis. She is intubated when I am examining her, no family at bedside. Per chart review, she is a 302. She was found with vodka in her hand by her son this weekend, went to [place] , and noticed to have elevated lft's, and transferred here for further management. She was transferred to the ICU, intubated this morning given worsening respiratory status. She has not overtly bled since here- no overt melena, hematemesis. Suspect she has acute liver injury from alcohol use (high ast compared to alt) superimposed on fatty liver from long standing alcohol use. Also with acute alcoholic pancreatitis. Would give her IV LR at 200 cc/hr for 1 liter, then 150 cc/hr thereafter with intermittent lasix IV if needed to prevent volume overload. IV PPI. Her Maddrey's is approximately 17. NAC for acute liver injury - there is benefit in maddrey's scores less than 17 for NAC. She is already on steroids. She has a prior history of an egd in 2017 without varices noted or phg. If any signs of overt gi bleeding - low threshold to start IV octreotide and give fibrinogen which can help in this setting. Suspect her low transient low platelets are from acute alcoholic hepatitis superimposed on underyling fatty liver disease leading to a transient increase in her portal pressures. Imaging not cw cirrhosis per noncontrast CT. She has required a prior ercp in the past- MRCP is reasonable to evaluate her bile ducts though suspect her lft elevation is from alcohol use. Other tests that could be checked include factor 5/7 levels to determine liver reserve. If low, indicates low liver reserve and these can be checked periodically to reassess how her liver is responding. If she has continued elevation in her INR, consider transfer to a tertiary liver transplant center. Prognosis per assessment today is poor. History of Present Illness Reason for Consultation: Ms. Siena Saldana is a 53 yr old female who we have met previously during prior admissions to [facility] but she has not come to [facility] for any appointments, thus we have never managed her liver disease. She has hx of RYGB and has been seen previously at [facility] for alcoholic hepatitis. Previously, in 2014, she was transferred to [place], ERCP with sphincterotomy was performed but no bile duct abnormalities, no sludge or stones were seen. Most recent EGD in 2017 with a stenosed, ulcerated gastrojejunal anastamosis. Regarding the possibility of cirrhosis, imaging suggested severe steatosis but did not mention cirrhosis. Platelets are low at 32,000 which which would suggest early cirrhosis. Records from [place] show that she was brought to that ED by ambulance because her son found her on the floor unresponsive. Her son reported that she had been depressed, with suicidal ideations and that she likely had only drank alcohol, not eating any food or drinking anything else for several days. She was transferred here from [place] with report of a GI bleed but has not had any gross GI bleeding since arrival and Hb is steady w/o transfusion at 10.7. She is in acidosis, worsening respiratory status. Lipase is elevated at > 10,[address] w/o evidence of pancreatitis. She is awake, but with eyes closed, somewhat agitated, and responds to questions but voice is mumbled. She did not respond when I asked her if she had pain, when I asked her to place her hand on her stomach when I asked other questions such as "were you drinking alcohol." On exam, she winced with deep palpation of the epigastric area but this was not reproducible. Abdomen is soft and BS are hypoactive. Attending Physician: Khoi Chi Allergies Allergy/AdvReac Type Severity Reaction Status Date / Time clarithromycin Allergy Intermediate HIVES Verified 08/03/17 04:46 aspirin Allergy Mild Verified 08/03/17 04:46 tramadol Allergy Mild Verified 08/03/17 04:46 oxaprozin Allergy Unknown Verified 08/03/17 04:46 Home Medications Home Medications Medication Instructions Recorded Confirmed Type Folic Acid 1 mg PO QD #0 06/01/17 History MIRTAZAPINE (REMERON) 15 mg PO HS #0 06/01/17 History MISOPROSTOL (CYTOTEC) 100 mg PO QID #0 06/01/17 History Pantoprazole (Pantoprazole Sodium) 40 mg PO BID #0 06/01/17 History SUCRALFATE (CARAFATE) 10 ml PO QID PRN 30 Days #1200 ml 06/01/17 History Clindamycin HCl 2 cap PO Q6 #0 10/02/17 History Fentanyl 75 mcg TRANSDERMAL Q72H #0 10/02/17 History Hydrocodone/Acetaminophen 1 tab PO Q6 PRN #0 tab 10/02/17 History 7.5MG/325MG ([place] 7.5MG/325MG) Hydroxyzine HCl 25 mg PO Q6 PRN #0 10/02/17 History Patient History Medical History Lumbago (Chronic) Multiple sclerosis (Chronic) Alcohol abuse Factitious disorder Opiate addiction Presence of intrathecal pump containing morphine 0.189mg/day and fentanyl 2.52mcg/day miminimal rate Sedative abuse Family History Other Aneurysm Cancer Stroke Social History Current Living Situation: Alone Smoking Status: Former smoker Hx Alcohol Use: Yes Alcohol type: hard liquor Alcohol Intake Frequency: 3 or more drinks per day Hx Substance Use: Yes substance use type: opiates and prescription drug Substance Use Type Other:: dilaudid, ativan, pt has indwelling pain pump Beliefs That Will Affect Care: None Preferred Language: German Communication Ability: Impaired 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: No Physical Exam 2 Vital Signs (Past 24 Hours): Last Vital Signs Temp 36.7 C 04/10/18 04:01 Pulse 137 H 04/10/18 09:17 Resp 28 H 04/10/18 05:00 BP 138/105 H 04/10/18 09:17 Pulse Ox 90 04/10/18 05:00 Constitutional: well developed, + ill appearing and + disheveled Eyes: mild icterus; PEARLA Neck: trachea midline, no thyromegaly Respiratory: + respiratory distress (sat at 93% on Ox with rebreather); no cough Auscultation: + crackles (few at the bases); no wheezes Cardiovascular: Rate/Rhythm: + tachycardic Heart Sounds: no murmur Gastrointestinal (Abdomen): normal bowel sounds, soft, nontender, no hepatosplenomegaly (though winced - tenderness not reproducible) Skin: no rashes, warm and dry L heel dressed - likely pressure changes Neurologic: awake and + confused; not obtunded Speech / Cognition: + abnormal speech Motor/Sensory: no tremor no asterixis Psychiatric: Orientation: + not alert Eye Contact: + poor eye contact ( barely opens eyes) Motor Behavior: n tremor somewhat aggitated Results & Data Laboratory Results WBC 5.48, Hb 10.7, Hct 31.9, platelets 32, PT 14.6, INR 1.5, Cr 0.8, K 3.4, Ch 11, Tox + Benzos, tylenol non conclusive - sent out to [facility]. T bili 5.3, D Bili 4.2, AST 767,ALT 185, ammonia <10 Blood gasses: pH 7.29, PCO2 27,HCO3 13, O2 85%, pCO2 31. Diagnostic Findings CT with IV contrast: 1. Mildly limited study from a technical standpoint secondary to motion artifact 2. Interval development of severe hepatic steatosis 3. No ductal dilatation 4. Nonobstructing lower pole left renal calculus 5. Low volume ascites 6. Bilateral pleural effusions with basilar atelectasis and mild septal edema
[2018-04-10] MEDS ORDERED: RAPID SEQUENCE INDUCTION BAG ONE (11:23)
[2018-04-10] MEDS: MIDAZOLAM HCL 125 MG/250 ML BAG IV SCH (11:45)
--- NOTE | 2018-04-10 12:31 | Procedure Note ---
Procedure Note Date of Service April 10, 2018 Note INTUBATION PROCEDURE NOTE: Provider: ELANA Bojorquez Attending: Dr. Clint Tao A time-out was completed verifying correct patient, procedure, site, positioning. Patient was evaluated and required intubation for decompensating mental status and hypoxic respiratory failure. Sedative agent used: Etomidate 20mg Paralysis agent used: None Emergent consent was implied given patients rapidly declining clinical status and need for airway protection. The patient was prepared in the appropriate fashion. Sedation was achieved utilizing etomidate, per Dr. Clint Tao administration. The patient was easily ventilated using [id number] to achieve adequate oxygenation. A 7.5 Turkmen endotracheal tube was placed under CMAC guidance to 21 cm at the lip with first attempt. The stylette was removed and balloon was inflated with 10mL of air. Appropriate Colorimetric change was appreciated. Bilateral breath sounds were heard without air sounds in the abdomen. Dr. Clint Tao was present for the entire procedure. Post Intubation Chest X-ray confirms placement without pneumothorax. Patient tolerated the procedure well and there were no immediate complications. Supervising Physician Co-Signing Physician Notes I was present for the entire procedure
[2018-04-10 12:37] LABS: iSTAT Allen Test Pass; iSTAT Arterial Blood Gas HCO3 14 meg/L (19-24); iSTAT Arterial Blood Gas pCO2 24 mmHg (35-46); iSTAT Arterial Blood Gas pH 7.37 (7.35-7.45); iSTAT Carbon Dioxide 15 mEq/l (24-31); iSTAT FiO2 60 %; iSTAT Site R Radial
[2018-04-10] MEDS ORDERED: INSULIN PROTOCOL GOAL RANGE ONE (12:38)
[2018-04-10] MEDS ORDERED: MODERATE STRESS LEVEL ONE (12:40)
--- NOTE | 2018-04-10 12:54 | XRay Report ---
XR chest 1V portable CLINICAL HISTORY: Intubated, tube placement, OG tube insertion RESPIRATORY FAILURE COMPARISON STUDY: 04/09/2018 FINDINGS: The heart remains enlarged. There is a right subclavian central venous catheter unchanged i n position. There is been interval placement of an endotracheal tube 16 mm above the meliza. There is an orogastric tube which extends into the stomach. The patient is rotated. There are low lung volume s. There are mildly increased right perihilar markings. There is no lobar consolidation.[ IMPRESSION: 1. Interval placement of orogastric tube which passes into the stomach 2. Interval placement of an endotracheal tube positioned 16 mm above the meliza Electronically signed by: Yahir Valencia M.D. 04/10/2018 12:53 PM
[2018-04-10] MEDS ORDERED: NovoLIN-R BOLUS FROM BAG IV ONE (13:00)
[2018-04-10] MEDS ORDERED: INSULIN REGULAR 250 UNITS in SODIUM CHLORIDE 0.9% 247.5 ML IV SCH (13:00)
--- NOTE | 2018-04-10 13:33 | Critical Care Progress Note ---
Date of Service April 10, 2018 Subjective Pain Pump Information: SynchroMed II B Serial Number: [id number] Pump Model Number: 8637-20 20 mL Catheter Model Number: [id number] Length: 89 cm Implanted: 89 cm Volume per cm: 0.0022 mL/cm Total Catheter Volume: 0.196 mL Nebo Volume: 16.7 mL Physical Exam 2 Vital Signs (Past 24 Hours): Last Vital Signs Temp 36.8 C 04/10/18 12:15 Pulse 116 H 04/10/18 13:05 Resp 24 04/10/18 12:52 BP 103/77 04/10/18 13:05 Pulse Ox 97 04/10/18 13:05
[2018-04-10 14:28] LABS: Hepatitis B Surface Antigen Neg (Neg)
[2018-04-10] MEDS: PROPRANOLOL HCL 10 MG TAB PO SCH (14:30)
--- NOTE | 2018-04-10 14:31 | Pharmacy Report ---
Glycemic Control Consultation - Date of Service April 10, 2018 - Scope Scope: Glycemic Pharmacist consulted by Dr Liang pre ICU hyperglycemia protocol on for glycemic control and to write orders per [facility] inpatient glycemic control protocol - Objective Weight: 63.3 kg Accuchecks BSG (last 24hrs): 04/09/18 04/09/18 04/10/18 15:53 20:33 04:46 Glucose 124 H 190 H POC Glucose 214 H 04/10/18 04/10/18 04/10/18 06:30 09:23 12:34 Glucose POC Glucose 206 H 285 H 250 H Laboratory Data (last 24hrs): 04/09/18 04/10/18 15:53 04:46 Potassium 3.4 L D 3.4 L Carbon Dioxide 16 L 18 L Anion Gap 17.0 H 14.0 H Creatinine 1.20 0.89 D Est Cr Clr Drug Dosing 48.2 65.0 - Recent Pertinent Medications Outpatient Anti-diabetic Regimen: * N/a * A1c = pending The patient is currently receiving: * Received lantus 10 units x 1 * subsequently started on insulin infusion Risk Factors for Insulin Resistance: * Steroids:methylprednisolone 40 mg q12 * Mechanical Ventilation - Assessment & Plan Assessment & Plan: ASSESSMENT: * 53 year old female transferred from [facility] presented for initially for a 302 * No current diabetes medications, concern for alcoholic hepatitis, thrombocytopenia, pancreatitis, electrolyte abnormalities * BSGs trended up last night, 206 this morning triggering ICU hyperglycemia protocol * 10 units of lantus and CF/CR of 30/12 were given, novolog given later and bsg up to 285 * Insulin drip was to start if next BSG was 250 or greater- insulin infusion started when next bsg 250 * Patient is on acetylcysteine infusion in dextrose, intubated this morning History of Present Illness PLAN FOR INPATIENT GLYCEMIC CONTROL: * Starting IV insulin infusion per moderate stress protocol * Goal Range 120-180 mg/dl * In the critical care setting, continuous IV insulin infusion has been shown to be the best method for achieving glycemic targets. * Please note that the plan above was derived based on current level of insulin resistance and hospital stress. These recommendations are appropriate for inpatient admission only. Plan of care upon discharge will need to be reassessed to avoid potential outpatient hypo/hyperglycemia. Thank you.
[2018-04-10 14:57] LABS: Hepatitis C IgG 13Yrs+Old_Rflx Neg (Neg)
[2018-04-10 15:14] LABS: Albumin Level 2.8 gm/dl (3.4-5.0); BUN Creatinine Ratio 31.2 (10-20); Bilirubin Direct 3.1 mg/dl (0-0.2); Calcium 6.9 mg/dl (8.5-10.1); Creatinine Clr Calc Pharmacy 67.3 ml/min; Est GFR (African American) 88.8; Est GFR (Non-African American) 76.6; Magnesium 2.1 mg/dl (1.8-2.4); Potassium 3.2 mmol/L (3.5-5.1)
[2018-04-10 15:15] LABS: Hematocrit (blood only) 29.8 % (37-47); Hemoglobin 10.2 g/dL (12.0-16.0); Mean Corpuscular Hgb Conc 34.2 g/dL (32-36); Mean Corpuscular Volume 92.8 fL (80-100); Nucleated RBC # (auto) 0.03 K/uL (0-0); Nucleated RBC % (auto) 0.6 %; Platelet Count 26 K/uL (130-400); RDW Coefficient of Variation 19.8 % (11.5-14.5); RDW Standard Deviation 67.8 fL (36.4-46.3); Red Blood Count 3.21 M/uL (4.2-5.4); White Blood Count 4.96 K/uL (4.8-10.8)
[2018-04-10 15:29] LABS: Troponin I 2.02 ng/ml (0-0.045)
[2018-04-10 15:42] LABS: Phosphorus 0.5 mg/dl (2.5-4.9); Total Protein 5.3 gm/dl (6.4-8.2)
[2018-04-10] MEDS ORDERED: POTASSIUM PHOSPHATE 24 MMOL in SODIUM CHLORIDE 0.9% 500 ML IV ONE (16:15)
[2018-04-10] MEDS: CHLOROTHIAZIDE SODIUM 500 MG in DEXTROSE 5% 50 ML IV SCH ×2 (17:58→21:22)
[2018-04-10] MEDS: METOPROLOL TARTRATE 1 MG/ML VIAL IV SCH ×3 (17:59→23:38)
--- NOTE | 2018-04-10 18:30 | Magnetic Resonance Report ---
MRCP CLINICAL HISTORY: Liver failure. COMPARISON STUDY: Abdominal CT dated 04/10/2018. Abdominal ultrasound dated 08/03/2017. TECHNIQUE: Abdominal MRCP is attempted. T2 sequences are acquired in the axial and coronal planes. IV contrast was not administered for this examination. 3-D reformats were created. The examination is s everely degraded by susceptibility artifact from an electronic device in the abdominal wall. There is also motion artifact. FINDINGS: The gallbladder is surgically absent. There is no significant intrahepatic biliary ductal dilatation. The common bile duct measures up to 7 mm. There are no filling defects identified to suggest choledo cholithiasis. The pancreatic duct is normal in caliber and not well evaluated. The liver is top normal in size. There is diffusely diminished signal throughout the liver consistent with severe hepatic steatosis. This is better appreciated on today's CT scan. The spleen is normal a s visualized. The pancreas, kidneys, and adrenal glands are grossly unremarkable but not well evaluat ed due to significant susceptibility artifact. There is a small volume of upper abdominal ascites, as well as moderate pleural effusions. The heart is enlarged and without pericardial effusion. IMPRESSION: 1. The examination is significantly compromised by susceptibility artifact from an electronic device within the abdominal wall. There is also motion artifact. 2. The gallbladder is surgically absent. 3. There is no evidence of choledocholithiasis. 4. Abdominal ascites and pleural effusions. 5. Severe hepatic steatosis. 6. Additional findings as above. Dictated: 04/10/2018 6:08 PM Transcribed: 04/10/2018 6:30 PM [id number] [id number] Electronically signed by: Herbie Reese M.D. 04/10/2018 6:46 PM
--- NOTE | 2018-04-10 20:55 | Cardiology Consultation ---
Date of Consultation April 10, 2018 Assessment & Plan (1) Cardiomyopathy: She has a history of reduced LV systolic function, having had an echocardiogram during her last admission. Her overall LV function appears worse. While the exact etiology is unknown, it is likely related to chronic alcohol abuse. During her acute illness, the main concern would be decompensation and development of pulmonary edema. She was aggressively hydrated due to volume depletion at the time of admission. Will need to monitor her pulmonary status closely. Clearly avoiding any more alcohol is recommended. If her clinical course improves, we can consider addition of oral beta blockade and YURI-I. (2) NSTEMI (non-ST elevated myocardial infarction): Mildly elevated troponin. She has had elevated markers before under similar circumstances. I don't believe this is physician representative of an acute coronary syndrome. I don't think she would benefit from systemic anticoagulation as a result. In the past, we have elected not to offer angiography or PCI as her compliance with the required medical therapy afterward was in doubt. I don't think there is an urgent indication for angiography (cath). We can address this in more detail if her condition improves. At this time I would advocate supportive measures being employed, ie: good oxygenation, control of tachycardia and her associated hyperadrenergic state, good hemeglobin levels and avoidance of hyper/hypotension. Use of beta blockers for her withdrawal symptoms would also be beneficial from a cardiac perspective. Present on Admission?: Yes History of Present Illness Reason for Consultation: Cardiomyopathy. NSTEMI Requesting Physician: Alon Attending Physician: Khoi Chi History of Present Illness Patient with a long history of severe alcohol abuse admitted with evidence of alcoholic hepatitis. Currently intubated and sedated. Allergies Allergy/AdvReac Type Severity Reaction Status Date / Time clarithromycin Allergy Intermediate HIVES Verified 08/03/17 04:46 aspirin Allergy Mild Verified 08/03/17 04:46 tramadol Allergy Mild Verified 08/03/17 04:46 oxaprozin Allergy Unknown Verified 08/03/17 04:46 Home Medications Home Medications Medication Instructions Recorded Confirmed Type Folic Acid 1 mg PO QD #0 06/01/17 History MIRTAZAPINE (REMERON) 15 mg PO HS #0 06/01/17 History MISOPROSTOL (CYTOTEC) 100 mg PO QID #0 06/01/17 History Pantoprazole (Pantoprazole Sodium) 40 mg PO BID #0 06/01/17 History SUCRALFATE (CARAFATE) 10 ml PO QID PRN 30 Days #1200 ml 06/01/17 History Clindamycin HCl 2 cap PO Q6 #0 10/02/17 History Fentanyl 75 mcg TRANSDERMAL Q72H #0 10/02/17 History Hydrocodone/Acetaminophen 1 tab PO Q6 PRN #0 tab 10/02/17 History 7.5MG/325MG ([place] 7.5MG/325MG) Hydroxyzine HCl 25 mg PO Q6 PRN #0 10/02/17 History Patient History Medical History Lumbago (Chronic) Multiple sclerosis (Chronic) Alcohol abuse Factitious disorder Opiate addiction Presence of intrathecal pump containing morphine 0.189mg/day and fentanyl 2.52mcg/day miminimal rate Sedative abuse Family History Other Aneurysm Cancer Stroke Social History Current Living Situation: Alone Smoking Status: Former smoker Hx Alcohol Use: Yes Alcohol type: hard liquor Alcohol Intake Frequency: 3 or more drinks per day Hx Substance Use: Yes substance use type: opiates and prescription drug Substance Use Type Other:: dilaudid, ativan, pt has indwelling pain pump Beliefs That Will Affect Care: None Communication Ability: Unable Review of Systems Unable to obtain as the patient is currently intubated and sedated Physical Exam Vital Signs (Past 24 Hours): Last Vital Signs Temp 37.4 C 04/10/18 20:00 Pulse 110 H 04/10/18 20:00 Resp 32 H 04/10/18 20:00 BP 114/85 04/10/18 20:00 Pulse Ox 97 04/10/18 20:00 Physical Exam: Intubated and sedated HEENT: Sclerae are anicteric. Neuro: Cranial nerves could not be evaluated Neck: Examination of the submandibular region did not reveal any significant lymphadenopathy. Carotids are palpable bilaterally and free of bruits on auscultation. There was no evidence of jugular venous distention. The thyroid was not enlarged. Lungs: Overall clear Cardiac: The rhythm was regular but tachycardic. S1 and S2 were normal. There are no murmurs on examination. The PMI was not markedly displaced on palpation. Abdomen: The abdomen was soft Extremities: Patient has bilateral radial pulses that are equal in intensity. There is no evidence cyanosis or clubbing. There was mild lower extremity edema.. Skin: There are no rashes noted on examination today. Results & Data Laboratory Results Abnormal Lab Results 04/10/18 04/10/18 04/10/18 04:46 04:46 04:46 WBC 5.48 RBC 3.39 L Hgb 10.7 L Hct 31.9 L MCV 94.1 MCH 31.6 MCHC 33.5 RDW Std Deviation 68.6 H RDW Coeff of Chetan 19.7 H Plt Count 32 L MPV 9.2 Immature Gran % (Auto) 0.2 Neut % (Auto) 92.8 Lymph % (Auto) 2.4 [place] % (Auto) 4.6 Eos % (Auto) 0.0 Baso % (Auto) 0.0 Immature Gran # (Auto) 0.01 Neut # (Auto) 5.09 Lymph # (Auto) 0.13 L [place] # (Auto) 0.25 Eos # (Auto) 0.00 Baso # (Auto) 0.00 Absolute Nucleated RBC 0.02 H Nucleated RBC % (auto) 0.3 Anisocytosis Present Pappenheimer Bodies 1+ PT 13.5 H INR 1.3 H APTT PTT Ratio Fibrinogen Sample Site POC pH POC pCO2 POC pO2 POC HCO3 POC Total CO2 POC Base Excess POC ABG O2 Sat Jaxon Test VBG pH VBG pCO2 VBG pO2 VBG HCO3 VBG O2 Saturation VBG Base Excess Barometric Pressure O2 Delivery Device POC O2 Rate POC FiO2 Tidal Volume PEEP Sodium 143 Potassium 3.4 L Chloride 111 H Carbon Dioxide 18 L Anion Gap 14.0 H BUN 32 H Creatinine 0.89 D Est Cr Clr Drug Dosing 65.0 Est GFR ( Amer) 85.2 Est GFR (Non-Af Amer) 73.5 BUN/Creatinine Ratio 36.3 H Glucose 190 H POC Glucose POC Lactic Acid Juanito Calcium 6.9 L Ionized Calcium Phosphorus 1.3 L* Magnesium 2.3 Total Bilirubin 5.3 H Direct Bilirubin 4.2 H AST 767 H ALT 185 H Alkaline Phosphatase 250 H Ammonia Troponin I Total Protein 5.8 L Albumin 3.3 L Lipase 58036 H TSH Stl C. diff Tox B Gene Acetaminophen Hep Bs Antigen Hepatitis C Antibody HIV 1&2 Ab/P24 Ag 4thGn 04/10/18 04/10/18 04/10/18 06:30 09:18 09:18 WBC RBC Hgb Hct MCV MCH MCHC RDW Std Deviation RDW Coeff of Cehtan Plt Count MPV Immature Gran % (Auto) Neut % (Auto) Lymph % (Auto) [place] % (Auto) Eos % (Auto) Baso % (Auto) Immature Gran # (Auto) Neut # (Auto) Lymph # (Auto) [place] # (Auto) Eos # (Auto) Baso # (Auto) Absolute Nucleated RBC Nucleated RBC % (auto) Anisocytosis Pappenheimer Bodies PT INR APTT PTT Ratio Fibrinogen Sample Site POC pH POC pCO2 POC pO2 POC HCO3 POC Total CO2 POC Base Excess POC ABG O2 Sat Jaxon Test VBG pH 7.31 L VBG pCO2 31 L VBG pO2 39 VBG HCO3 15 VBG O2 Saturation 70.6 VBG Base Excess -9.7 Barometric Pressure 730.8 O2 Delivery Device POC O2 Rate POC FiO2 Tidal Volume PEEP Sodium Potassium Chloride Carbon Dioxide Anion Gap BUN Creatinine Est Cr Clr Drug Dosing Est GFR ( Amer) Est GFR (Non-Af Amer) BUN/Creatinine Ratio Glucose POC Glucose 206 H POC Lactic Acid Juanito Calcium Ionized Calcium Phosphorus Magnesium Total Bilirubin Direct Bilirubin AST ALT Alkaline Phosphatase Ammonia < 10.0 L Troponin I Total Protein Albumin Lipase [facility] Stl C. diff Tox B Gene Acetaminophen Hep Bs Antigen Hepatitis C Antibody HIV 1&2 Ab/P24 Ag 4thGn 04/10/18 04/10/18 04/10/18 09:23 09:32 09:32 WBC RBC Hgb Hct MCV MCH MCHC RDW Std Deviation RDW Coeff of Chetan Plt Count MPV Immature Gran % (Auto) Neut % (Auto) Lymph % (Auto) [place] % (Auto) Eos % (Auto) Baso % (Auto) Immature Gran # (Auto) Neut # (Auto) Lymph # (Auto) [place] # (Auto) Eos # (Auto) Baso # (Auto) Absolute Nucleated RBC Nucleated RBC % (auto) Anisocytosis Pappenheimer Bodies PT INR APTT PTT Ratio Fibrinogen Sample Site POC pH POC pCO2 POC pO2 POC HCO3 POC Total CO2 POC Base Excess POC ABG O2 Sat Jaxon Test VBG pH VBG pCO2 VBG pO2 VBG HCO3 VBG O2 Saturation VBG Base Excess Barometric Pressure O2 Delivery Device POC O2 Rate POC FiO2 Tidal Volume PEEP Sodium Potassium Chloride Carbon Dioxide Anion Gap BUN Creatinine Est Cr Clr Drug Dosing Est GFR ( Amer) Est GFR (Non-Af Amer) BUN/Creatinine Ratio Glucose POC Glucose 285 H POC Lactic Acid Juanito Calcium Ionized Calcium Phosphorus Magnesium Total Bilirubin Direct Bilirubin AST ALT Alkaline Phosphatase Ammonia Troponin I Total Protein Albumin Lipase TSH 0.754 Stl C. diff Tox B Gene Acetaminophen Hep Bs Antigen Hepatitis C Antibody HIV 1&2 Ab/P24 Ag 4thGn 04/10/18 04/10/18 04/10/18 09:32 09:32 09:32 WBC RBC Hgb Hct MCV MCH MCHC RDW Std Deviation RDW Coeff of Chetan Plt Count MPV Immature Gran % (Auto) Neut % (Auto) Lymph % (Auto) [place] % (Auto) Eos % (Auto) Baso % (Auto) Immature Gran # (Auto) Neut # (Auto) Lymph # (Auto) [place] # (Auto) Eos # (Auto) Baso # (Auto) Absolute Nucleated RBC Nucleated RBC % (auto) Anisocytosis Pappenheimer Bodies PT 14.6 H INR 1.5 H APTT 28.7 PTT Ratio 1.1 Fibrinogen 146 L Sample Site POC pH POC pCO2 POC pO2 POC HCO3 POC Total CO2 POC Base Excess POC ABG O2 Sat Jaxon Test VBG pH VBG pCO2 VBG pO2 VBG HCO3 VBG O2 Saturation VBG Base Excess Barometric Pressure O2 Delivery Device POC O2 Rate POC FiO2 Tidal Volume PEEP Sodium Potassium Chloride Carbon Dioxide Anion Gap BUN Creatinine Est Cr Clr Drug Dosing Est GFR ( Amer) Est GFR (Non-Af Amer) BUN/Creatinine Ratio Glucose POC Glucose POC Lactic Acid Juanito Calcium Ionized Calcium 0.99 L Phosphorus Magnesium Total Bilirubin Direct Bilirubin AST ALT Alkaline Phosphatase Ammonia Troponin I 1.710 H* Total Protein Albumin Lipase TSH Stl C. diff Tox B Gene Acetaminophen Hep Bs Antigen Hepatitis C Antibody HIV 1&2 Ab/P24 Ag 4thGn 04/10/18 04/10/18 04/10/18 09:32 09:32 09:36 WBC RBC Hgb Hct MCV MCH MCHC RDW Std Deviation RDW Coeff of Chetan Plt Count MPV Immature Gran % (Auto) Neut % (Auto) Lymph % (Auto) [place] % (Auto) Eos % (Auto) Baso % (Auto) Immature Gran # (Auto) Neut # (Auto) Lymph # (Auto) [place] # (Auto) Eos # (Auto) Baso # (Auto) Absolute Nucleated RBC Nucleated RBC % (auto) Anisocytosis Pappenheimer Bodies PT INR APTT PTT Ratio Fibrinogen Sample Site R Radial POC pH 7.29 L POC pCO2 28 L POC pO2 54 L POC HCO3 13 L POC Total CO2 14 L POC Base Excess -13.0 L POC ABG O2 Sat 85.0 L Jaxon Test Pass VBG pH VBG pCO2 VBG pO2 VBG HCO3 VBG O2 Saturation VBG Base Excess Barometric Pressure O2 Delivery Device POC O2 Rate POC FiO2 Tidal Volume PEEP Sodium Potassium Chloride Carbon Dioxide Anion Gap BUN Creatinine Est Cr Clr Drug Dosing Est GFR ( Amer) Est GFR (Non-Af Amer) BUN/Creatinine Ratio Glucose POC Glucose POC Lactic Acid Juanito Calcium Ionized Calcium Phosphorus Magnesium Total Bilirubin Direct Bilirubin AST ALT Alkaline Phosphatase Ammonia Troponin I Total Protein Albumin Lipase TSH Stl C. diff Tox B Gene Acetaminophen Hep Bs Antigen Neg Hepatitis C Antibody Neg HIV 1&2 Ab/P24 Ag 4thGn Neg 04/10/18 04/10/18 04/10/18 09:44 12:24 12:34 WBC RBC Hgb Hct MCV MCH MCHC RDW Std Deviation RDW Coeff of Chetan Plt Count MPV Immature Gran % (Auto) Neut % (Auto) Lymph % (Auto) [place] % (Auto) Eos % (Auto) Baso % (Auto) Immature Gran # (Auto) Neut # (Auto) Lymph # (Auto) [place] # (Auto) Eos # (Auto) Baso # (Auto) Absolute Nucleated RBC Nucleated RBC % (auto) Anisocytosis Pappenheimer Bodies PT INR APTT PTT Ratio Fibrinogen Sample Site R Radial POC pH 7.37 POC pCO2 24 L POC pO2 72 L POC HCO3 14 L POC Total CO2 15 L POC Base Excess -11.0 L POC ABG O2 Sat 95.0 Jaxon Test Pass VBG pH VBG pCO2 VBG pO2 VBG HCO3 VBG O2 Saturation VBG Base Excess Barometric Pressure O2 Delivery Device Ventilator POC O2 Rate 24 POC FiO2 60 Tidal Volume 600 PEEP 5 Sodium Potassium Chloride Carbon Dioxide Anion Gap BUN Creatinine Est Cr Clr Drug Dosing Est GFR ( Amer) Est GFR (Non-Af Amer) BUN/Creatinine Ratio Glucose POC Glucose 250 H POC Lactic Acid Juanito 1.25 Calcium Ionized Calcium Phosphorus Magnesium Total Bilirubin Direct Bilirubin AST ALT Alkaline Phosphatase Ammonia Troponin I Total Protein Albumin Lipase TSH Stl C. diff Tox B Gene Acetaminophen Hep Bs Antigen Hepatitis C Antibody HIV 1&2 Ab/P24 Ag 4thGn 04/10/18 04/10/18 04/10/18 14:25 14:33 14:33 WBC 4.96 RBC 3.21 L Hgb 10.2 L Hct 29.8 L MCV 92.8 MCH 31.8 MCHC 34.2 RDW Std Deviation 67.8 H RDW Coeff of Chetan 19.8 H Plt Count 26 L* MPV Immature Gran % (Auto) Neut % (Auto) Lymph % (Auto) [place] % (Auto) Eos % (Auto) Baso % (Auto) Immature Gran # (Auto) Neut # (Auto) Lymph # (Auto) [place] # (Auto) Eos # (Auto) Baso # (Auto) Absolute Nucleated RBC 0.03 H Nucleated RBC % (auto) 0.6 Anisocytosis Pappenheimer Bodies PT INR APTT PTT Ratio Fibrinogen Sample Site POC pH POC pCO2 POC pO2 POC HCO3 POC Total CO2 POC Base Excess POC ABG O2 Sat Jaxon Test VBG pH VBG pCO2 VBG pO2 VBG HCO3 VBG O2 Saturation VBG Base Excess Barometric Pressure O2 Delivery Device POC O2 Rate POC FiO2 Tidal Volume PEEP Sodium 145 Potassium 3.2 L Chloride 111 H Carbon Dioxide 20 L Anion Gap 14.0 H BUN 27 H Creatinine 0.86 Est Cr Clr Drug Dosing 67.3 Est GFR ( Amer) 88.8 Est GFR (Non-Af Amer) 76.6 BUN/Creatinine Ratio 31.2 H Glucose 200 H POC Glucose 214 H POC Lactic Acid Juanito Calcium 6.9 L Ionized Calcium Phosphorus 0.5 L* Magnesium 2.1 Total Bilirubin 4.0 H Direct Bilirubin 3.1 H AST 552 H ALT 165 H Alkaline Phosphatase 246 H Ammonia Troponin I Total Protein 5.3 L Albumin 2.8 L Lipase TSH Stl C. diff Tox B Gene Acetaminophen Hep Bs Antigen Hepatitis C Antibody HIV 1&2 Ab/P24 Ag 4thGn 04/10/18 04/10/18 04/10/18 14:38 15:28 16:26 WBC RBC Hgb Hct MCV MCH MCHC RDW Std Deviation RDW Coeff of Chetan Plt Count MPV Immature Gran % (Auto) Neut % (Auto) Lymph % (Auto) [place] % (Auto) Eos % (Auto) Baso % (Auto) Immature Gran # (Auto) Neut # (Auto) Lymph # (Auto) [place] # (Auto) Eos # (Auto) Baso # (Auto) Absolute Nucleated RBC Nucleated RBC % (auto) Anisocytosis Pappenheimer Bodies PT INR APTT PTT Ratio Fibrinogen Sample Site POC pH POC pCO2 POC pO2 POC HCO3 POC Total CO2 POC Base Excess POC ABG O2 Sat Jaxon Test VBG pH VBG pCO2 VBG pO2 VBG HCO3 VBG O2 Saturation VBG Base Excess Barometric Pressure O2 Delivery Device POC O2 Rate POC FiO2 Tidal Volume PEEP Sodium Potassium Chloride Carbon Dioxide Anion Gap BUN Creatinine Est Cr Clr Drug Dosing Est GFR ( Amer) Est GFR (Non-Af Amer) BUN/Creatinine Ratio Glucose POC Glucose 192 H 175 H POC Lactic Acid Juanito Calcium Ionized Calcium Phosphorus Magnesium Total Bilirubin Direct Bilirubin AST ALT Alkaline Phosphatase Ammonia Troponin I 2.020 H* Total Protein Albumin Lipase 8087 H TSH Stl C. diff Tox B Gene Acetaminophen Hep Bs Antigen Hepatitis C Antibody HIV 1&2 Ab/P24 Ag 4thGn 04/10/18 04/10/18 04/10/18 18:09 18:59 Unknown WBC RBC Hgb Hct MCV MCH MCHC RDW Std Deviation RDW Coeff of Chetan Plt Count MPV Immature Gran % (Auto) Neut % (Auto) Lymph % (Auto) [place] % (Auto) Eos % (Auto) Baso % (Auto) Immature Gran # (Auto) Neut # (Auto) Lymph # (Auto) [place] # (Auto) Eos # (Auto) Baso # (Auto) Absolute Nucleated RBC Nucleated RBC % (auto) Anisocytosis Pappenheimer Bodies PT INR APTT PTT Ratio Fibrinogen Sample Site POC pH POC pCO2 POC pO2 POC HCO3 POC Total CO2 POC Base Excess POC ABG O2 Sat Jaxon Test VBG pH VBG pCO2 VBG pO2 VBG HCO3 VBG O2 Saturation VBG Base Excess Barometric Pressure O2 Delivery Device POC O2 Rate POC FiO2 Tidal Volume PEEP Sodium Potassium Chloride Carbon Dioxide Anion Gap BUN Creatinine Est Cr Clr Drug Dosing Est GFR ( Amer) Est GFR (Non-Af Amer) BUN/Creatinine Ratio Glucose POC Glucose 163 H 151 H POC Lactic Acid Juanito Calcium Ionized Calcium Phosphorus Magnesium Total Bilirubin Direct Bilirubin AST ALT Alkaline Phosphatase Ammonia Troponin I Total Protein Albumin Lipase TSH Stl C. diff Tox B Gene Neg C.diff Toxin B Acetaminophen Hep Bs Antigen Hepatitis C Antibody HIV 1&2 Ab/P24 Ag 4thGn Diagnostic Findings Echocardiogram obtained today revealed severely reduced LV systolic function (1) Cardiomyopathy Cardiomyopathy type: alcoholic Qualified Code(s): I42.6 - Alcoholic cardiomyopathy
[2018-04-10] MEDS ORDERED: PANTOprazole 40 MG in SYRINGE 0 ML IV SCH (21:00)
--- NOTE | 2018-04-10 22:00 | Hospitalist Progress Note ---
Date of Service April 10, 2018 Assessment & Plan (1) Alcoholic hepatitis: Patient has transaminases in the thousand range she is having increased alcohol intake of late. Some concern of alcoholic hepatitis. However her coagulation studies seem to be relatively intact. The patient in the intensive care unit and follow her LFTs she is stopped her alcohol use will watch her for alcohol withdrawal intensive care physician is chosen phenobarbital for this prevention Patient is alcohol associated thrombocytopenia. Discussed case with GI, unable to determine if patient has cirrhosis or alcohol hepatitis. Even if she has cirrhosis, unlikely to obtain transplant given that she continue s to drink. She would need at least 6 months of abstinence from alcohol. (2) Coffee ground emesis: Reported coffee-ground emesis while at [facility] H&H were 10 and 33 patient is on a Protonix drip Hemoglobin has remained stable. On PPI. (3) Hypokalemia: Patient is hypokalemic this is in the face of acidemia this may worsen we will continue to watch carefully. On 04/10 she remains hypokalemic. (4) Acute kidney injury: By the outpatient labs patient's creatinine was 2.9 she was hydrated aggressively we will have her on maintenance fluids and recheck her labs frequently Resolved. (5) Suicide attempt: Patient is a 302 the warranted signed the patient on suicide watch and she will likely need to go to psychiatric care once she is stabilized medically (6) Acute metabolic encephalopathy: Patient developed DT and became confused and agitated. patient required intubation for airway protection. She will remain in the ICU for the time being. (7) Delirium tremens: As noted above. Subjective Patient continues to be seadated and intubated. Unable to obtain history. Unable to obtain review of systems due to patient being sedated and intubated. Physical Exam Vital Signs (Past 24 Hours): Last Vital Signs Temp 37.4 C 04/10/18 20:00 Pulse 107 H 04/10/18 21:00 Resp 32 H 04/10/18 21:00 BP 116/66 04/10/18 21:00 Pulse Ox 98 04/10/18 21:00 Physical Exam: The patient thin and is sedated and intubated Vital signs as documented. Head exam is unremarkable. normocephalic, atraumatic Neck is with jugular venous distension, thyromegaly, or lymphademopathy Lungs are diminished but no focal air loss Cardiac exam reveals tachycardic Abdominal exam reveals normal bowel sounds, no masses, no organomegaly Extremities are nonedematous and both pedal pulses are present Neurologic exam is intubated and sedated which limits this exam. Psychologically seems anxious and depressed Skin is warm Dry
[2018-04-11 00:15] LABS: Hematocrit (blood only) 31.8 % (37-47); Hemoglobin 10.6 g/dL (12.0-16.0)
[2018-04-11 00:20] LABS: Platelet Count 30 K/uL (130-400)
[2018-04-11 00:26] LABS: BUN Creatinine Ratio 27.1 (10-20); Calcium 6.9 mg/dl (8.5-10.1); Creatinine Clr Calc Pharmacy 86.4 ml/min; Est GFR (African American) 115.5; Est GFR (Non-African American) 99.7; Potassium 3.4 mmol/L (3.5-5.1)
[2018-04-11 00:50] LABS: Phosphorus 2.7 mg/dl (2.5-4.9)
[2018-04-11] MEDS ORDERED: GLUCOSE 10 TABS/TUBE PO PRN (01:09)
[2018-04-11] MEDS ORDERED: CARBOHYDRATES FOR HYPOGLYCEMIA PO PRN (01:09)
[2018-04-11] MEDS ORDERED: DEXTROSE 50% 50 ML SYRINGE IV PRN (01:09)
[2018-04-11] MEDS ORDERED: GLUCAGON FOR INJ 1 MG VIAL IM PRN (01:09)
[2018-04-11] MEDS ORDERED: GLUCOSE 40% GEL 15 GM TUBE PO PRN (01:09)
[2018-04-11] MEDS: POTASSIUM CHLORIDE / WTR 20 MEQ/100 ML PLCT IV SCH ×2 (01:12→03:34)
[2018-04-11] MEDS ORDERED: INSULIN GLARGINE SOLOSTAR 100 UNITS/ML 3 ML PEN SC ONE ×2 (01:15→21:00)
[2018-04-11] MEDS: THIAMINE HCL 300 MG in SODIUM CHLORIDE 0.9% 50 ML IV SCH ×3 (04:13→19:36)
[2018-04-11] MEDS ORDERED: METOPROLOL TARTRATE 1 MG/ML VIAL IV STA (04:30)
[2018-04-11] MEDS ORDERED: FUROSEMIDE 40 MG in SYRINGE 0 ML IV ONE (04:35)
[2018-04-11 05:07] LABS: Mean Corpuscular Hgb Conc 33.6 g/dL (32-36); Nucleated RBC # (auto) 0.04 K/uL (0-0); Nucleated RBC % (auto) 0.5 %
[2018-04-11 05:18] LABS: INR 1.7 (0.9-1.1)
[2018-04-11 05:28] LABS: Estimated Average Glucose 91 mg/dl; Hemoglobin A1C 4.8 % (4.5-5.6)
[2018-04-11 05:28] LABS: Basophils # (auto) 0.01 K/uL (0-0.2); Basophils % (auto) 0.1 %; Immature Granulocytes # (auto) 0.02 K/uL (0.00-0.02); Immature Granulocytes % (auto) 0.3 %; Lymphocytes # (auto) 0.56 K/uL (1.2-3.4); Lymphocytes % (auto) 7.3 %; Mean Corpuscular Volume 91.2 fL (80-100); Monocytes # (auto) 0.54 K/uL (0.11-0.59); Monocytes % (auto) 7.1 %; Neutrophils # (auto) 6.52 K/uL (1.4-6.5); Neutrophils % (auto) 85.2 %; Pappenheimer Bodies 1+; Platelet Count 35 K/uL (130-400); RDW Coefficient of Variation 19.7 % (11.5-14.5); RDW Standard Deviation 66.7 fL (36.4-46.3); Red Blood Count 3.62 M/uL (4.2-5.4); White Blood Count 7.65 K/uL (4.8-10.8)
[2018-04-11 05:35] LABS: BUN Creatinine Ratio 20.1 (10-20); Calcium 7.4 mg/dl (8.5-10.1); Creatinine Clr Calc Pharmacy 79.3 ml/min; Est GFR (African American) 108.2; Est GFR (Non-African American) 93.4
[2018-04-11 05:53] LABS: Bilirubin Direct 3.6 mg/dl (0-0.2); Bilirubin,Total 5.2 mg/dl (0.2-1); Phosphorus 1.4 mg/dl (2.5-4.9); Total Protein 5.4 gm/dl (6.4-8.2)
[2018-04-11 06:02] LABS: iSTAT Allen Test Pass; iSTAT Arterial Blood Gas HCO3 16 meg/L (19-24); iSTAT Arterial Blood Gas pCO2 24 mmHg (35-46); iSTAT Arterial Blood Gas pH 7.45 (7.35-7.45); iSTAT Carbon Dioxide 17 mEq/l (24-31); iSTAT FiO2 50 %; iSTAT Site L Radial
[2018-04-11] MEDS: METOPROLOL TARTRATE 1 MG/ML VIAL IV SCH ×4 (06:06→23:59)
[2018-04-11] MEDS ORDERED: POTASSIUM PHOS 3 MMOL/1 ML INFUSION IV STA ×2 (07:13→17:00)
[2018-04-11] MEDS ORDERED: POTASSIUM PHOSPHATE 9 MMOL in SODIUM CHLORIDE 0.9% 250 ML IV ONE (07:15)
--- NOTE | 2018-04-11 07:22 | Gastroenterology Progress Note ---
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 For alcoholic pancreatitis and hepatitis, no evidence of biliary obstruction. Will continue to follow LFTs, lipase INR. Continue IV hydration. No clear evidence of cirrhosis versus more likely severe alcoholic hepatitis. Even if cirrhosis is present, she has not maintained 6 months of abstinence from alcohol so therefore is not likely to be a good candidate for liver transplant. 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 Will continue to follow closely. Supervising Physician Co-Signing Physician Notes I have seen and examined the patient. Agree with further plan of care as Mio's assessment and plan. Subjective Ms. Siena Saldana is a 53 yr old female who was found unresponsive, known to be drinking large amts of alcohol (report per family) transferred from [place] for coffee grounds emesis. Regarding ? GI - no evidence: Hb on arrival 10.2->11.1 today and no gross GI bleeding noted since arrival here. Regarding elevated LFTs, severe steatosis but no evidence of cirrhosis on imaging - MRCP yesterday w/o bile duct dilation or choledocholithiasis. Today's Maddrey's Score 28. Physical Exam 2 Vital Signs (Past 24 Hours): Last Vital Signs Temp 37.1 C 04/11/18 04:00 Pulse 100 H 04/11/18 07:00 Resp 32 H 04/11/18 07:00 BP 120/87 04/11/18 07:00 Pulse Ox 97 04/11/18 07:00 Constitutional: well developed, + ill appearing and + disheveled Neck: trachea midline, no thyromegaly Respiratory: + respiratory distress (sat at 93% on Ox with rebreather); no cough Auscultation: + crackles (few at the bases); no wheezes Cardiovascular: Rate/Rhythm: + tachycardic Heart Sounds: no murmur Gastrointestinal (Abdomen): normal bowel sounds, soft, nontender, no hepatosplenomegaly (though winced - tenderness not reproducible) Skin: no rashes, warm and dry Neurologic: awake and + confused; not obtunded Speech / Cognition: + abnormal speech Motor/Sensory: no tremor Psychiatric: Orientation: + not alert Eye Contact: + poor eye contact ( barely opens eyes) Motor Behavior: n tremor Results & Data Laboratory Results Lipase 10,000->3000. LFTs stable to slightly worsened: T Bili 5.2, D 3.6, AST 763, ALT 211, Alk Phos 281, INR 1.7 Maddrey's: 28 Diagnostic Findings MRCP 04/10/17: 1. The examination is significantly compromised by susceptibility artifact from an electronic device within the abdominal wall. There is also motion artifact. 2. The gallbladder is surgically absent. 3. There is no evidence of choledocholithiasis. 4. Abdominal ascites and pleural effusions. 5. Severe hepatic steatosis. 6. Additional findings as above. CT with IV contrast: 1. Mildly limited study from a technical standpoint secondary to motion artifact 2. Interval development of severe hepatic steatosis 3. No ductal dilatation 4. Nonobstructing lower pole left renal calculus 5. Low volume ascites 6. Bilateral pleural effusions with basilar atelectasis and mild septal edema
[2018-04-11] MEDS: PROPRANOLOL HCL 10 MG TAB PO SCH (07:23)
--- NOTE | 2018-04-11 08:42 | Critical Care Progress Note ---
Date of Service April 11, 2018 Assessment & Plan (1) Alcohol withdrawal: Ms. gutierres is a 53-year-old female who was transferred for possible GI bleed. No current evidence of active bleeding. Patient became encephalopathic secondary to alcohol withdrawal versus liver failure. Currently intubated, will remain in ICU for further management. Neuro: Acute encephalopathy -Patient became unresponsive yesterday, requiring intubation for airway protection -Metabolic versus toxic versus hepatic -Ammonia negative, currently having diarrhea on lactulose, goal 2-3 bowel movements per day -Checking Tylenol to rule out chronic exposure Alcohol withdrawal: Hyperactive delirium -Delirium tremors -Unclear baseline alcohol consumption -Continue phenobarbital, Versed drip -RASS every 4 hours goal RASS 0-1 -IV metoprolol 10 mg every 6 hours Suicidal ideation Psychiatric illness: Major depressive disorder versus personality disorder -Patient under 302 currently undergoing medical stabilization -Unable to confirm psychiatric regimen or home dosing regimen. Chronic pain -Chronic pain pump -Receiving 18 mg IV morphine daily and 2.52 mcg fentanyl daily Resp: Acute hypoxic respiratory failure- -Bilateral pleural effusion seen on CT scan -No evidence of pulmonary emboli, concern for pancreatitis -Patient intubated yesterday after becoming unresponsive -Current vent settin/50%/450/8 -AB.45/24/188/116 CV: Tachycardia-IV metoprolol 10 mg every 6 hours Elevated troponins -Adrenergic storms secondary to alcohol withdrawal versus non-ST elevation [place] versus nutritional deficiency -Echocardiogram EF of 20-25% -Cardiology consult, appreciate their recs -We will continue with diuresis, repleting electrolytes, not currently requiring inotropic support Fluids/Renal: TYRONE present on admission since resolved -Custom IV fluid at this time. 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 GI consult for common bile duct pathology Heme: Anemia Thrombocytopenia -Likely anemia and thrombocytopenia secondary to disease process DVT prophylaxis: Chemical prophylaxis contraindicated, SCDs present Endocrine: ICU hyperglycemia protocol Recently removed dextrose from fluids -Mucomyst and dextrose containing solutions -Patient did not get NovoLog dosing this morning will wait for second blood sugar to decide insulin infusion Vascular access: Right subclavian placed at outside hospital Code Status: Full Supervising Physician Co-Signing Physician Notes Reason Critically Ill: 53-year-old female with acute encephalopathy and hyperactive delirium secondary to alcohol withdrawal PLAN: Neuro: Acute encephalopathy -Metabolic versus toxic versus hepatic -Ammonia less than 10, titrate lactulose to 2-3 bowel movements daily -Tylenol: Pending, however, finished course of Mucomyst empirically -Per report outside hospital Tylenol level was negative Alcohol withdrawal: Hyperactive delirium -Delirium tremens -Unclear baseline alcohol consumption -On phenobarbital 135 mg every 4 hours scheduled with 65 mg every 2 breakthrough (not given) -Decreasing dosing interval to 6 hours and scaling back breakthrough to every 3 hours -RASS every 4 hours goal RASS 0-1 Suicidal ideation Psychiatric illness: Major depressive disorder versus personality disorder -Patient under 302 currently undergoing medical stabilization -Unable to confirm psychiatric regimen or home dosing regimen. Chronic pain -Chronic pain pump -Receiving 18 mg IV morphine daily and 2.52 mcg fentanyl daily Resp: Acute hypoxic respiratory failure -Required intubation mechanical ventilation -24 rate 50% 450 tidal volume 8 PEEP -Aggressive diuresis for possible volume overload secondary to cardiomyopathy versus pancreatitis versus combination thereof CV: Tachycardia Elevated troponins -Adrenergic storms secondary to alcohol withdrawal versus non-ST elevation [place] versus nutritional deficiency -Metoprolol 5 mg every 6 hours increasing to 10 mg every 6 hours -Echocardiogram: Reviewed -Cardiology consult reviewed Fluids/Renal: TYRONE present on admission since resolved -Discontinuing additional IV fluids at this time High gap metabolic acidosis -Recheck lactic acid: Negative ID: Viral hepatitis and HIV both negative GI/Nutrition: Transaminitis - Checking Tylenol level question chronic exposure -Empiric Mucomyst -Meld: 16: 04/10; meld 19: 04/11 -Patient would not be deemed a transplant candidate given his suicidal ideation and continued alcohol abuse -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 GI consult for common bile duct pathology Heme: Anemia Thrombocytopenia -Likely anemia and thrombocytopenia secondary to disease process DVT prophylaxis: Chemical prophylaxis contraindicated, SCDs present Endocrine: ICU hyperglycemia protocol - Patient required insulin infusion yesterday transitioned to subcutaneous insulin overnight Vascular access: Right subclavian placed at outside hospital Code Status: Full Case management assisting with obtaining medical decision maker: Patient lacks capacity secondary to metabolic encephalopathy Patient was discussed in multidisciplinary rounds I have personally spent 40 minutes of critical care time in the direct management of this patient. This is a life/limb threatening event. This includes time spent evaluating patient, direct bedside care, chart review, placing orders, interpretation of diagnostic studies, discussion with consultants, patient, and/or family members regarding treatment decisions, as well as other required patient management activities. This time is exclusive of all separately billable procedures, and teaching time and separate from and in addition to any other critical care service time. Clinical update 1600: Patient's RSBI extremely elevated I think 1 more day on respirator she will be more appropriate candidate to extubate continue with diuresis. Pancreatitis appears to be improving will start trickle feeds at this time. Subjective Unable to obtain review of systems due to patient being sedated and intubated. Physical Exam 2 Vital Signs (Past 24 Hours): Last Vital Signs Temp 37.1 C 04/11/18 04:00 Pulse 100 H 04/11/18 07:00 Resp 32 H 04/11/18 07:00 BP 120/87 04/11/18 07:00 Pulse Ox 97 04/11/18 07:00 Constitutional: WD/WN, vitals as above Sedated Eyes: PERRL, conjunctivae normal, anicteric sclerae Respiratory: Chest wall with symmetrical movement, coarse bilateral breath sounds auscultated in all lobes, 7.5 ET tube, tracheal midline Cardiovascular: Patient sinus tachycardia on monitor, S1 and S2 auscultated, no murmur, radial and pedal pulses +2 bilaterally, Gastrointestinal (Abdomen): Abdomen round and soft, liver is firm and highly palpable in right upper quadrant, hypoactive bowel sounds in all 4 quadrants, unable to assess tenderness due to sedation Neurologic: Neurological exam currently compromised due to sedation. Psychiatric: Unable to assess due to sedation Genitourinary: Dial inserted with adequate urine output
[2018-04-11] MEDS ORDERED: METOPROLOL TARTRATE 1 MG/ML VIAL IV ONE (08:45)
[2018-04-11] MEDS: FOLIC ACID 1 MG in SYRINGE 9.8 ML IV SCH (08:59)
[2018-04-11] MEDS: PANTOprazole 40 MG in SYRINGE 0 ML IV SCH ×2 (08:59→22:00)
[2018-04-11] MEDS: INSULIN ASPART 100 UNITS/ML 3 ML PEN SC SCH ×4 (09:03→21:59)
--- NOTE | 2018-04-11 10:03 | Cardiology Progress Note ---
Date of Service April 11, 2018 Assessment & Plan (1) Cardiomyopathy: She appears to be diuresing quite well after administration of some intravenous diuretic. Her volume status is difficult to assess given the fact that she is on a ventilator currently. However, she overall seems hemodyn amically compensated. Hopefully her oxygen requirements improved. If there appears to be some difficulty with her oxygenation or high pulmonary pressures, I think this would be a reasonable sign for more aggressive diuresis. Once she is extubated we can hopefully begin treatment with oral beta-blockade and Naveen inhibition depending on her hemodynamics and renal function. (2) NSTEMI (non-ST elevated myocardial infarction): I think we can order repeat troponin to see if her markers have peaked. Presumably this is related to demand ischemia or her metabolic derangements. I do not believe this is related to an acute coronary syndrome. Again, treatment at this point is simply supportive. She is being treated with scheduled beta- blockade which is advantages. Hopefully we can control her hyperadrenergic state during periods of withdrawal. Hemodynamically she seems to be doing well otherwise. We will need to continue monitoring her hemoglobin, oxygenation, blood pressure and heart rate. When she is extubated and able to communicate we can discuss additional options for evaluation. Subjective This morning the patient was more alert and did follow some commands. Physical Exam Vital Signs (Past 24 Hours): Last Vital Signs Temp 37.1 C 04/11/18 04:00 Pulse 98 H 04/11/18 09:00 Resp 30 H 04/11/18 08:46 BP 121/93 04/11/18 09:00 Pulse Ox 99 04/11/18 08:46 Physical Exam: Intubated and sedated. However, she opened her eyes spontaneously and did follow some commands. HEENT: Extraocular movements are intact. The sclerae are anicteric. Neuro: Cranial nerves could not be definitively evaluated. Neck: Patient's neck is supple. He has palpable carotid pulses bilaterally without bruits on auscultation. There is no evidence of jugular venous distention. The thyroid is not enlarged. Lungs: Clear to auscultation bilaterally. Tachypneic. He has good air movement without use of accessory muscles. No rales wheezes or rhonchi. Cardiac: Heart demonstrates a regular rate and rhythm with some element of tachycardia. Normal S1 and S2. No murmurs on examination. Pulses: The patient has palpable radial pulses bilaterally that are equal in intensity Extremities: There was no evidence of hypoperfusion. There is no cyanosis or clubbing. There is no edema, but she is wearing sequential compression devices. Skin: I did not appreciate any rashes on examination today. Results & Data Laboratory Results Abnormal Lab Results 04/10/18 04/10/18 04/10/18 09:23 09:32 09:32 WBC RBC Hgb Hct MCV MCH MCHC RDW Std Deviation RDW Coeff of Chetan Plt Count Immature Gran % (Auto) Neut % (Auto) Lymph % (Auto) Rhea % (Auto) Eos % (Auto) Baso % (Auto) Immature Gran # (Auto) Neut # (Auto) Lymph # (Auto) Rhea # (Auto) Eos # (Auto) Baso # (Auto) Absolute Nucleated RBC Nucleated RBC % (auto) Pappenheimer Bodies PT INR APTT PTT Ratio Fibrinogen Sample Site POC pH POC pCO2 POC pO2 POC HCO3 POC Total CO2 POC Base Excess POC ABG O2 Sat Jaxon Test O2 Delivery Device POC O2 Rate Minute Ventilation POC FiO2 Tidal Volume PEEP Sodium Potassium Chloride Carbon Dioxide Anion Gap BUN Creatinine Est Cr Clr Drug Dosing Est GFR ( Amer) Est GFR (Non-Af Amer) BUN/Creatinine Ratio Glucose POC Glucose 285 H Estimat Average Glucose Hemoglobin A1c POC Lactic Acid Juanito Calcium Ionized Calcium Phosphorus Magnesium Total Bilirubin Direct Bilirubin AST ALT Alkaline Phosphatase Troponin I Total Protein Albumin Lipase TSH 0.754 Stl C. diff Tox B Gene Acetaminophen Hepatitis A IgM Ab Hep Bs Antigen Hep B Core IgM Ab Hepatitis C Antibody HIV 1&2 Ab/P24 Ag 4thGn Miscellaneous Test 04/10/18 04/10/18 04/10/18 09:32 09:32 09:32 WBC RBC Hgb Hct MCV MCH MCHC RDW Std Deviation RDW Coeff of Chetan Plt Count Immature Gran % (Auto) Neut % (Auto) Lymph % (Auto) Rhea % (Auto) Eos % (Auto) Baso % (Auto) Immature Gran # (Auto) Neut # (Auto) Lymph # (Auto) Rhea # (Auto) Eos # (Auto) Baso # (Auto) Absolute Nucleated RBC Nucleated RBC % (auto) Pappenheimer Bodies PT 14.6 H INR 1.5 H APTT 28.7 PTT Ratio 1.1 Fibrinogen 146 L Sample Site POC pH POC pCO2 POC pO2 POC HCO3 POC Total CO2 POC Base Excess POC ABG O2 Sat Jaxon Test O2 Delivery Device POC O2 Rate Minute Ventilation POC FiO2 Tidal Volume PEEP Sodium Potassium Chloride Carbon Dioxide Anion Gap BUN Creatinine Est Cr Clr Drug Dosing Est GFR ( Amer) Est GFR (Non-Af Amer) BUN/Creatinine Ratio Glucose POC Glucose Estimat Average Glucose Hemoglobin A1c POC Lactic Acid Juanito Calcium Ionized Calcium 0.99 L Phosphorus Magnesium Total Bilirubin Direct Bilirubin AST ALT Alkaline Phosphatase Troponin I 1.710 H* Total Protein Albumin Lipase TSH Stl C. diff Tox B Gene Acetaminophen Hepatitis A IgM Ab Hep Bs Antigen Hep B Core IgM Ab Hepatitis C Antibody HIV 1&2 Ab/P24 Ag 4thGn Miscellaneous Test 04/10/18 04/10/18 04/10/18 09:32 09:32 09:32 WBC RBC Hgb Hct MCV MCH MCHC RDW Std Deviation RDW Coeff of Chetan Plt Count Immature Gran % (Auto) Neut % (Auto) Lymph % (Auto) Rhea % (Auto) Eos % (Auto) Baso % (Auto) Immature Gran # (Auto) Neut # (Auto) Lymph # (Auto) Rhea # (Auto) Eos # (Auto) Baso # (Auto) Absolute Nucleated RBC Nucleated RBC % (auto) Pappenheimer Bodies PT INR APTT PTT Ratio Fibrinogen Sample Site POC pH POC pCO2 POC pO2 POC HCO3 POC Total CO2 POC Base Excess POC ABG O2 Sat Jaxon Test O2 Delivery Device POC O2 Rate Minute Ventilation POC FiO2 Tidal Volume PEEP Sodium Potassium Chloride Carbon Dioxide Anion Gap BUN Creatinine Est Cr Clr Drug Dosing Est GFR ( Amer) Est GFR (Non-Af Amer) BUN/Creatinine Ratio Glucose POC Glucose Estimat Average Glucose Hemoglobin A1c POC Lactic Acid Juanito Calcium Ionized Calcium Phosphorus Magnesium Total Bilirubin Direct Bilirubin AST ALT Alkaline Phosphatase Troponin I Total Protein Albumin Lipase TSH Stl C. diff Tox B Gene Acetaminophen Hepatitis A IgM Ab NON-REACTIVE Hep Bs Antigen Neg Hep B Core IgM Ab NON-REACTIVE Hepatitis C Antibody Neg HIV 1&2 Ab/P24 Ag 4thGn Neg Miscellaneous Test 04/10/18 04/10/18 04/10/18 09:32 09:44 12:24 WBC RBC Hgb Hct MCV MCH MCHC RDW Std Deviation RDW Coeff of Chetan Plt Count Immature Gran % (Auto) Neut % (Auto) Lymph % (Auto) Rhea % (Auto) Eos % (Auto) Baso % (Auto) Immature Gran # (Auto) Neut # (Auto) Lymph # (Auto) Rhea # (Auto) Eos # (Auto) Baso # (Auto) Absolute Nucleated RBC Nucleated RBC % (auto) Pappenheimer Bodies PT INR APTT PTT Ratio Fibrinogen Sample Site R Radial POC pH 7.37 POC pCO2 24 L POC pO2 72 L POC HCO3 14 L POC Total CO2 15 L POC Base Excess -11.0 L POC ABG O2 Sat 95.0 Jaxon Test Pass O2 Delivery Device Ventilator POC O2 Rate 24 Minute Ventilation POC FiO2 60 Tidal Volume 600 PEEP 5 Sodium Potassium Chloride Carbon Dioxide Anion Gap BUN Creatinine Est Cr Clr Drug Dosing Est GFR ( Amer) Est GFR (Non-Af Amer) BUN/Creatinine Ratio Glucose POC Glucose Estimat Average Glucose Hemoglobin A1c POC Lactic Acid Juanito 1.25 Calcium Ionized Calcium Phosphorus Magnesium Total Bilirubin Direct Bilirubin AST ALT Alkaline Phosphatase Troponin I Total Protein Albumin Lipase TSH Stl C. diff Tox B Gene Acetaminophen Hepatitis A IgM Ab Hep Bs Antigen Hep B Core IgM Ab Hepatitis C Antibody HIV 1&2 Ab/P24 Ag 4thGn Miscellaneous Test REPORT 04/10/18 04/10/18 04/10/18 12:34 14:25 14:33 WBC RBC Hgb Hct MCV MCH MCHC RDW Std Deviation RDW Coeff of Chetan Plt Count Immature Gran % (Auto) Neut % (Auto) Lymph % (Auto) Rhea % (Auto) Eos % (Auto) Baso % (Auto) Immature Gran # (Auto) Neut # (Auto) Lymph # (Auto) Rhea # (Auto) Eos # (Auto) Baso # (Auto) Absolute Nucleated RBC Nucleated RBC % (auto) Pappenheimer Bodies PT INR APTT PTT Ratio Fibrinogen Sample Site POC pH POC pCO2 POC pO2 POC HCO3 POC Total CO2 POC Base Excess POC ABG O2 Sat Jaxon Test O2 Delivery Device POC O2 Rate Minute Ventilation POC FiO2 Tidal Volume PEEP Sodium Potassium Chloride Carbon Dioxide Anion Gap BUN Creatinine Est Cr Clr Drug Dosing Est GFR ( Amer) Est GFR (Non-Af Amer) BUN/Creatinine Ratio Glucose POC Glucose 250 H 214 H Estimat Average Glucose 91 Hemoglobin A1c 4.8 POC Lactic Acid Juanito Calcium Ionized Calcium Phosphorus Magnesium Total Bilirubin Direct Bilirubin AST ALT Alkaline Phosphatase Troponin I Total Protein Albumin Lipase TSH Stl C. diff Tox B Gene Acetaminophen Hepatitis A IgM Ab Hep Bs Antigen Hep B Core IgM Ab Hepatitis C Antibody HIV 1&2 Ab/P24 Ag 4thGn Miscellaneous Test 02/04/10/18 04/10/18 14:33 14:33 14:38 WBC 4.96 RBC 3.21 L Hgb 10.2 L Hct 29.8 L MCV 92.8 MCH 31.8 MCHC 34.2 RDW Std Deviation 67.8 H RDW Coeff of Chetan 19.8 H Plt Count 26 L* Immature Gran % (Auto) Neut % (Auto) Lymph % (Auto) Rhea % (Auto) Eos % (Auto) Baso % (Auto) Immature Gran # (Auto) Neut # (Auto) Lymph # (Auto) Rhea # (Auto) Eos # (Auto) Baso # (Auto) Absolute Nucleated RBC 0.03 H Nucleated RBC % (auto) 0.6 Pappenheimer Bodies PT INR APTT PTT Ratio Fibrinogen Sample Site POC pH POC pCO2 POC pO2 POC HCO3 POC Total CO2 POC Base Excess POC ABG O2 Sat Jaxon Test O2 Delivery Device POC O2 Rate Minute Ventilation POC FiO2 Tidal Volume PEEP Sodium 145 Potassium 3.2 L Chloride 111 H Carbon Dioxide 20 L Anion Gap 14.0 H BUN 27 H Creatinine 0.86 Est Cr Clr Drug Dosing 67.3 Est GFR ( Amer) 88.8 Est GFR (Non-Af Amer) 76.6 BUN/Creatinine Ratio 31.2 H Glucose 200 H POC Glucose Estimat Average Glucose Hemoglobin A1c POC Lactic Acid Juanito Calcium 6.9 L Ionized Calcium Phosphorus 0.5 L* Magnesium 2.1 Total Bilirubin 4.0 H Direct Bilirubin 3.1 H AST 552 H ALT 165 H Alkaline Phosphatase 246 H Troponin I 2.020 H* Total Protein 5.3 L Albumin 2.8 L Lipase 8087 H TSH Stl C. diff Tox B Gene Acetaminophen Hepatitis A IgM Ab Hep Bs Antigen Hep B Core IgM Ab Hepatitis C Antibody HIV 1&2 Ab/P24 Ag 4thGn Miscellaneous Test 04/10/18 04/10/18 04/10/18 15:28 16:26 18:09 WBC RBC Hgb Hct MCV MCH MCHC RDW Std Deviation RDW Coeff of Chetan Plt Count Immature Gran % (Auto) Neut % (Auto) Lymph % (Auto) Rhea % (Auto) Eos % (Auto) Baso % (Auto) Immature Gran # (Auto) Neut # (Auto) Lymph # (Auto) Rhea # (Auto) Eos # (Auto) Baso # (Auto) Absolute Nucleated RBC Nucleated RBC % (auto) Pappenheimer Bodies PT INR APTT PTT Ratio Fibrinogen Sample Site POC pH POC pCO2 POC pO2 POC HCO3 POC Total CO2 POC Base Excess POC ABG O2 Sat Jaxon Test O2 Delivery Device POC O2 Rate Minute Ventilation POC FiO2 Tidal Volume PEEP Sodium Potassium Chloride Carbon Dioxide Anion Gap BUN Creatinine Est Cr Clr Drug Dosing Est GFR ( Amer) Est GFR (Non-Af Amer) BUN/Creatinine Ratio Glucose POC Glucose 192 H 175 H 163 H Estimat Average Glucose Hemoglobin A1c POC Lactic Acid Juanito Calcium Ionized Calcium Phosphorus Magnesium Total Bilirubin Direct Bilirubin AST ALT Alkaline Phosphatase Troponin I Total Protein Albumin Lipase TSH Stl C. diff Tox B Gene Acetaminophen Hepatitis A IgM Ab Hep Bs Antigen Hep B Core IgM Ab Hepatitis C Antibody HIV 1&2 Ab/P24 Ag 4thGn Miscellaneous Test 04/10/18 04/10/18 04/10/18 18:59 20:57 22:56 WBC RBC Hgb Hct MCV MCH MCHC RDW Std Deviation RDW Coeff of Chetan Plt Count Immature Gran % (Auto) Neut % (Auto) Lymph % (Auto) Rhea % (Auto) Eos % (Auto) Baso % (Auto) Immature Gran # (Auto) Neut # (Auto) Lymph # (Auto) Rhea # (Auto) Eos # (Auto) Baso # (Auto) Absolute Nucleated RBC Nucleated RBC % (auto) Pappenheimer Bodies PT INR APTT PTT Ratio Fibrinogen Sample Site POC pH POC pCO2 POC pO2 POC HCO3 POC Total CO2 POC Base Excess POC ABG O2 Sat Jaxon Test O2 Delivery Device POC O2 Rate Minute Ventilation POC FiO2 Tidal Volume PEEP Sodium Potassium Chloride Carbon Dioxide Anion Gap BUN Creatinine Est Cr Clr Drug Dosing Est GFR ( Amer) Est GFR (Non-Af Amer) BUN/Creatinine Ratio Glucose POC Glucose 151 H 148 H 103 H Estimat Average Glucose Hemoglobin A1c POC Lactic Acid Juanito Calcium Ionized Calcium Phosphorus Magnesium Total Bilirubin Direct Bilirubin AST ALT Alkaline Phosphatase Troponin I Total Protein Albumin Lipase TSH Stl C. diff Tox B Gene Acetaminophen Hepatitis A IgM Ab Hep Bs Antigen Hep B Core IgM Ab Hepatitis C Antibody HIV 1&2 Ab/P24 Ag 4thGn Miscellaneous Test 04/10/18 04/10/18 04/10/18 23:46 23:46 23:50 WBC RBC Hgb 10.6 L Hct 31.8 L MCV MCH MCHC RDW Std Deviation RDW Coeff of Chetan Plt Count 30 L Immature Gran % (Auto) Neut % (Auto) Lymph % (Auto) Rhea % (Auto) Eos % (Auto) Baso % (Auto) Immature Gran # (Auto) Neut # (Auto) Lymph # (Auto) Rhea # (Auto) Eos # (Auto) Baso # (Auto) Absolute Nucleated RBC Nucleated RBC % (auto) Pappenheimer Bodies PT INR APTT PTT Ratio Fibrinogen Sample Site POC pH POC pCO2 POC pO2 POC HCO3 POC Total CO2 POC Base Excess POC ABG O2 Sat Jaxon Test O2 Delivery Device POC O2 Rate Minute Ventilation POC FiO2 Tidal Volume PEEP Sodium 143 Potassium 3.4 L Chloride 109 H Carbon Dioxide 23 Anion Gap 11.0 BUN 18 Creatinine 0.67 Est Cr Clr Drug Dosing 86.4 Est GFR ( Amer) 115.5 Est GFR (Non-Af Amer) 99.7 BUN/Creatinine Ratio 27.1 H Glucose 84 POC Glucose 89 Estimat Average Glucose Hemoglobin A1c POC Lactic Acid Juanito Calcium 6.9 L Ionized Calcium Phosphorus 2.7 D Magnesium 2.0 Total Bilirubin Direct Bilirubin AST ALT Alkaline Phosphatase Troponin I Total Protein Albumin Lipase TSH Stl C. diff Tox B Gene Acetaminophen Hepatitis A IgM Ab Hep Bs Antigen Hep B Core IgM Ab Hepatitis C Antibody HIV 1&2 Ab/P24 Ag 4thGn Miscellaneous Test 04/10/18 04/11/18 04/11/18 Unknown 00:33 00:59 WBC RBC Hgb Hct MCV MCH MCHC RDW Std Deviation RDW Coeff of Chetan Plt Count Immature Gran % (Auto) Neut % (Auto) Lymph % (Auto) Rhea % (Auto) Eos % (Auto) Baso % (Auto) Immature Gran # (Auto) Neut # (Auto) Lymph # (Auto) Rhea # (Auto) Eos # (Auto) Baso # (Auto) Absolute Nucleated RBC Nucleated RBC % (auto) Pappenheimer Bodies PT INR APTT PTT Ratio Fibrinogen Sample Site POC pH POC pCO2 POC pO2 POC HCO3 POC Total CO2 POC Base Excess POC ABG O2 Sat Jaxon Test O2 Delivery Device POC O2 Rate Minute Ventilation POC FiO2 Tidal Volume PEEP Sodium Potassium Chloride Carbon Dioxide Anion Gap BUN Creatinine Est Cr Clr Drug Dosing Est GFR ( Amer) Est GFR (Non-Af Amer) BUN/Creatinine Ratio Glucose POC Glucose 100 H 108 H Estimat Average Glucose Hemoglobin A1c POC Lactic Acid Juanito Calcium Ionized Calcium Phosphorus Magnesium Total Bilirubin Direct Bilirubin AST ALT Alkaline Phosphatase Troponin I Total Protein Albumin Lipase TSH Stl C. diff Tox B Gene Neg C.diff Toxin B Acetaminophen Hepatitis A IgM Ab Hep Bs Antigen Hep B Core IgM Ab Hepatitis C Antibody HIV 1&2 Ab/P24 Ag 4thGn Miscellaneous Test 04/11/18 04/11/18 04/11/18 04:54 04:54 04:54 WBC 7.65 RBC 3.62 L Hgb 11.0 L Hct 33.0 L MCV 91.2 MCH 30.4 MCHC 33.6 RDW Std Deviation 66.7 H RDW Coeff of Chetan 19.7 H Plt Count 35 L Immature Gran % (Auto) 0.3 Neut % (Auto) 85.2 Lymph % (Auto) 7.3 Rhea % (Auto) 7.1 Eos % (Auto) 0.0 Baso % (Auto) 0.1 Immature Gran # (Auto) 0.02 Neut # (Auto) 6.52 H Lymph # (Auto) 0.56 L Rhea # (Auto) 0.54 Eos # (Auto) 0.00 Baso # (Auto) 0.01 Absolute Nucleated RBC 0.04 H Nucleated RBC % (auto) 0.5 Pappenheimer Bodies 1+ PT 17.0 H INR 1.7 H APTT PTT Ratio Fibrinogen Sample Site POC pH POC pCO2 POC pO2 POC HCO3 POC Total CO2 POC Base Excess POC ABG O2 Sat Jaxon Test O2 Delivery Device POC O2 Rate Minute Ventilation POC FiO2 Tidal Volume PEEP Sodium 138 Potassium 4.0 D Chloride 105 Carbon Dioxide 19 L Anion Gap 14.0 H BUN 15 Creatinine 0.73 Est Cr Clr Drug Dosing 79.3 Est GFR ( Amer) 108.2 Est GFR (Non-Af Amer) 93.4 BUN/Creatinine Ratio 20.1 H Glucose 139 H POC Glucose Estimat Average Glucose Hemoglobin A1c POC Lactic Acid Juanito Calcium 7.4 L Ionized Calcium Phosphorus 1.4 L* D Magnesium 2.0 Total Bilirubin 5.2 H Direct Bilirubin 3.6 H AST 763 H ALT 211 H Alkaline Phosphatase 281 H Troponin I Total Protein 5.4 L Albumin 3.0 L Lipase 3026 H TSH Stl C. diff Tox B Gene Acetaminophen Hepatitis A IgM Ab Hep Bs Antigen Hep B Core IgM Ab Hepatitis C Antibody HIV 1&2 Ab/P24 Ag 4thGn Miscellaneous Test 04/11/18 04/11/18 04:55 05:48 WBC RBC Hgb Hct MCV MCH MCHC RDW Std Deviation RDW Coeff of Chetan Plt Count Immature Gran % (Auto) Neut % (Auto) Lymph % (Auto) Rhea % (Auto) Eos % (Auto) Baso % (Auto) Immature Gran # (Auto) Neut # (Auto) Lymph # (Auto) Rhea # (Auto) Eos # (Auto) Baso # (Auto) Absolute Nucleated RBC Nucleated RBC % (auto) Pappenheimer Bodies PT INR APTT PTT Ratio Fibrinogen Sample Site L Radial POC pH 7.45 POC pCO2 24 L POC pO2 188 H POC HCO3 16 L POC Total CO2 17 L POC Base Excess -8.0 POC ABG O2 Sat 100.0 H Jaxon Test Pass O2 Delivery Device Ventilator POC O2 Rate 24 Minute Ventilation 14.7 POC FiO2 50 Tidal Volume 450 PEEP 10 Sodium Potassium Chloride Carbon Dioxide Anion Gap BUN Creatinine Est Cr Clr Drug Dosing Est GFR ( Amer) Est GFR (Non-Af Amer) BUN/Creatinine Ratio Glucose POC Glucose 142 H Estimat Average Glucose Hemoglobin A1c POC Lactic Acid Juanito Calcium Ionized Calcium Phosphorus Magnesium Total Bilirubin Direct Bilirubin AST ALT Alkaline Phosphatase Troponin I Total Protein Albumin Lipase TSH Stl C. diff Tox B Gene Acetaminophen Hepatitis A IgM Ab Hep Bs Antigen Hep B Core IgM Ab Hepatitis C Antibody HIV 1&2 Ab/P24 Ag 4thGn Miscellaneous Test (1) Cardiomyopathy Cardiomyopathy type: alcoholic Qualified Code(s): I42.6 - Alcoholic cardiomyopathy
[2018-04-11 10:46] LABS: BUN Creatinine Ratio 19.5 (10-20); Calcium 7.3 mg/dl (8.5-10.1); Creatinine Clr Calc Pharmacy 71.4 ml/min; Est GFR (African American) 95.4; Est GFR (Non-African American) 82.3; Magnesium 1.8 mg/dl (1.8-2.4); Phosphorus 2.1 mg/dl (2.5-4.9); Potassium 3.2 mmol/L (3.5-5.1)
--- NOTE | 2018-04-11 10:48 | XRay Report ---
XR chest 1V portable HISTORY: 53 years-old Female hypoxia acute hypoxia COMPARISON: Chest radiograph 04/10/2018 TECHNIQUE: Portable AP view of the chest FINDINGS: Endotracheal tube overlies the midline terminating 1.0 cm superior to the meliza coursing towards the right mainstem bronchus. Right subclavian central venous catheter is noted, distal tip terminating w ithin the region of the superior cavoatrial junction. An enteric tube is present coursing below the d iaphragm, distal tip outside the [id number]. Cardiac silhouette is mildly enlarged. Lungs are hypoinflated with bronchovascular crowding. Linear s ubsegmental right perihilar opacities are noted. Mild right hemidiaphragm elevation. No pneumothorax, large pleural effusion or overt pulmonary edema. Bones appear grossly intact. Surgical clips project over the upper abdomen. IMPRESSION: 1. Endotracheal tube overlies the midline, 1.0 cm superior to the meliza coursing towards the right m ainstem bronchus. Slight retraction recommended. 2. Enteric tube and right subclavian central venous catheter appear unchanged. 3. Cardiomegaly without overt pulmonary edema. 4. Hypoinflation with subsegmental right perihilar opacities suggestive of atelectasis. The above report was generated using voice recognition software. It may contain grammatical, syntax o r spelling errors. Electronically signed by: Brennon Matos M.D. 04/11/2018 10:47 AM
[2018-04-11] MEDS ORDERED: LACTULOSE SYRUP 30 GM/45 ML UDP PO SCH (11:30)
[2018-04-11] MEDS: methylPREDNISolone 40 MG in SYRINGE 0 ML IV SCH (11:58)
[2018-04-11] MEDS ORDERED: POTASSIUM PHOSPHATE 12 MMOL in SODIUM CHLORIDE 0.9% 250 ML IV ONE (12:00)
--- NOTE | 2018-04-11 14:19 | Pharmacy Report ---
Pharmacy Glycemic Short Note 2 - Date of Service April 11, 2018 - Glycemic Short BSG Results (Last 24 hours): 04/10/18 04/10/18 04/10/18 14:25 14:33 15:28 Glucose 200 H POC Glucose 214 H 192 H 04/10/18 04/10/18 04/10/18 16:26 18:09 18:59 Glucose POC Glucose 175 H 163 H 151 H 04/10/18 04/10/18 04/10/18 20:57 22:56 23:46 Glucose 84 POC Glucose 148 H 103 H 04/10/18 04/11/18 04/11/18 23:50 00:33 00:59 Glucose POC Glucose 89 100 H 108 H 04/11/18 04/11/18 04/11/18 04:54 04:55 09:50 Glucose 139 H 172 H POC Glucose 142 H 04/11/18 11:40 Glucose POC Glucose 148 H OUTPATIENT ANTIDIABETIC REGIMEN: * N/A * Al1c 4.8% ASSESSMENT: * Patient continues to be intubated, transitioned off of insulin drip this morning ~0130 * Lantus 10 units x 1 this morning, CF/CR weight based stress of 2 * BSGs have been within goal range 142/148 * Continues on methylprednisolone BID and ventilation PLAN FOR INPATIENT GLYCEMIC CONTROL: * Hold outpatient oral diabetes medications * Basal insulin * Lantus 10 units x 1, lantus 5/10 units on scale * Hold if BSG <110 * 110-140: 5 units * >140: 10 units * Bolus insulin * NovoLog per scale ACHS or Q6hrs while NPO * Goal Range: Low 140 mg/dL - High 180 mg/dL * Correction Factor: 35 mg/dL/unit * Nutritional / Prandial insulin per carb ratio of 1 unit per 12 grams CHO consumed PLAN FOR DISCHARGE: * Do not anticipate outpatient need
[2018-04-11 15:33] LABS: iSTAT Allen Test Pass; iSTAT Arterial Blood Gas HCO3 20 meg/L (19-24); iSTAT Arterial Blood Gas pCO2 27 mmHg (35-46); iSTAT Arterial Blood Gas pH 7.48 (7.35-7.45); iSTAT Carbon Dioxide 21 mEq/l (24-31); iSTAT FiO2 50 %; iSTAT Site R Radial
--- NOTE | 2018-04-11 15:44 | XRay Report ---
XR chest 1V portable CLINICAL HISTORY: 53 years-old Female presenting with Repositioned ETT. TECHNIQUE: Portable upright AP view of the chest was obtained. COMPARISON: 04/11/2018. FINDINGS: Endotracheal tube terminates in the mid thoracic trachea over 2 cm from the meliza. Right subclavian central venous catheter terminates at the superior cavoatrial junction. Nasogastric tube terminates i n the stomach with sidehole also contained within the gastric lumen. The patient is is [place] rotated. Atherosclerosis of the aortic arch. Cardiac silhouette mildly enlarged . Elevation of the right hemidiaphragm unchanged. Slightly aeration of the right lung. No new focal o pacity. No large effusion or pneumothorax. Osseous structures normal. Cholecystectomy clips noted. Nu merous overlying external leads degrade image quality. IMPRESSION: 1. Appropriately positioned lines and tubes. 2. Slightly improved aeration of the right lung. 3. Mild cardiomegaly. Electronically signed by: Luis A Cali M.D. 04/11/2018 3:42 PM
[2018-04-11 15:51] LABS: Calcium 7.5 mg/dl (8.5-10.1); Creatinine Clr Calc Pharmacy 82.7 ml/min; Est GFR (African American) 113.8; Est GFR (Non-African American) 98.2; Magnesium 1.8 mg/dl (1.8-2.4); Phosphorus 1.9 mg/dl (2.5-4.9)
[2018-04-11] MEDS ORDERED: IMPACT LIQD 1.0 CAL 1,000 ML BAG OG SCH (16:00)
[2018-04-11] MEDS: MIDAZOLAM HCL 125 MG/250 ML BAG IV SCH ×2 (16:37→18:27)
[2018-04-11] MEDS ORDERED: MAGNESIUM SULFATE / D5W 1 GM/100 ML BAG IV ONE (17:00)
[2018-04-11] MEDS ORDERED: FUROSEMIDE 20 MG in SYRINGE 0 ML IV ONE (17:06)
[2018-04-11] MEDS ORDERED: POTASSIUM PHOSPHATE 24 MMOL in SODIUM CHLORIDE 0.9% 500 ML IV ONE (17:15)
--- NOTE | 2018-04-11 23:47 | Hospitalist Progress Note ---
Date of Service April 11, 2018 Assessment & Plan (1) Alcohol withdrawal: As noted below. (2) Alcoholic hepatitis: Patient has transaminases in the thousand range she is having increased alcohol intake of late. Some concern of alcoholic hepatitis. However her coagulation studies seem to be relatively intact. The patient in the intensive care unit and follow her LFTs she is stopped her alcohol use will watch her for alcohol withdrawal intensive care physician is chosen phenobarbital for this prevention Patient is alcohol associated thrombocytopenia. Discussed case with GI, unable to determine if patient has cirrhosis or alcohol hepatitis. Even if she has cirrhosis, unlikely to obtain transplant given that she continues to drink. She would need at least 6 months of abstinence from alcohol. (3) Coffee ground emesis: Reported coffee-ground emesis while at [facility] H&H were 10 and 33 patient is on a Protonix drip Hemoglobin has remained stable. On PPI. (4) Hypokalemia: Patient is hypokalemic this is in the face of acidemia this may worsen we will continue to watch carefully. On 04/11 she remains hypokalemic. (5) Acute kidney injury: By the outpatient labs patient's creatinine was 2.9 she was hydrated aggressively we will have her on maintenance fluids and recheck her labs frequently Resolved. (6) Suicide attempt: Patient is a 302 the warranted signed the patient on suicide watch and she will likely need to go to psychiatric care once she is stabilized medically (7) Acute metabolic encephalopathy: Heptaic vs alcoholic vs toxic. -Ammonia negative, currently having diarrhea on lactulose, goal 2-3 bowel movements per dayPatient developed DT and became confused and agitated. patient required intubation for airway protection. She will remain in the ICU for the time being. (8) Delirium tremens: As noted above. Chronic pain -Chronic pain pump -Receiving in the pump 18 mg IV morphine daily and 2.52 mcg fentanyl daily (9) Acute respiratory failure with hypoxia: -Bilateral pleural effusion seen on CT scan Patient does not have any evidence of pulmonary emboli Intubated as noted above. Managed by crab picker (10) Cardiomyopathy: Appreciate cardiac input. Patient has a history of reduced LV systolic function. LV function is worse when compared to previous echo. Etiology is unknown, it is likely related to chronic alcohol abuse. Curretly patient developed pulmonary edema. She was aggressively hydrated due to volume depletion at the time of admission. If her clinical course improves, we can consider addition of oral beta blockade and YURI-I. (11) Demand ischemia: Probable NSTEMI (non-ST elevated myocardial infarction): Patient had mildly elevated trop. May be from demand ischemia. Cardio does not believe this to be an active ACS. Appreciate cardio input: Use of beta blockers for her withdrawal symptoms would also be beneficial from a cardiac perspective. Subjective Patient remains to be sedated and intubated. Unable to obtain history. Unable to obtain review of systems due to patient being sedated and intubated. Physical Exam Vital Signs (Past 24 Hours): Last Vital Signs Temp 36.9 C 04/11/18 20:00 Pulse 106 H 04/11/18 20:08 Resp 36 H 04/11/18 20:08 BP 93/68 L 04/11/18 20:00 Pulse Ox 94 04/11/18 20:08 Physical Exam: The patient thin and is sedated and intubated Vital signs as documented. Head exam is unremarkable. normocephalic, atraumatic Neck is with jugular venous distension, thyromegaly, or lymphademopathy Lungs are diminished but no focal air loss Cardiac exam reveals tachycardic Abdominal exam reveals normal bowel sounds, no masses, no organomegaly Extremities are nonedematous and both pedal pulses are present Neurologic exam is intubated and sedated which limits this exam. Psychologically seems anxious and depressed Skin is warm Dry (1) Cardiomyopathy Cardiomyopathy type: alcoholic Qualified Code(s): I42.6 - Alcoholic cardiomyopathy
[2018-04-12] MEDS: methylPREDNISolone 40 MG in SYRINGE 0 ML IV SCH ×3 (00:01→23:31)
[2018-04-12] MEDS: THIAMINE HCL 300 MG in SODIUM CHLORIDE 0.9% 50 ML IV SCH (03:30)
[2018-04-12 05:47] LABS: Albumin Level 3.4 gm/dl (3.4-5.0); BUN Creatinine Ratio 18.7 (10-20); Bilirubin Direct 3.1 mg/dl (0-0.2); Bilirubin,Total 4.5 mg/dl (0.2-1); Calcium 7.6 mg/dl (8.5-10.1); Creatinine Clr Calc Pharmacy 78.2 ml/min; Est GFR (African American) 106.5; Est GFR (Non-African American) 91.8; Magnesium 1.7 mg/dl (1.8-2.4); Phosphorus 1.7 mg/dl (2.5-4.9); Potassium 2.4 mmol/L (3.5-5.1); Total Protein 6.3 gm/dl (6.4-8.2); Troponin I 0.535 ng/ml (0-0.045)
[2018-04-12 05:59] LABS: Nucleated RBC # (auto) 0.06 K/uL (0-0); Nucleated RBC % (auto) 0.4 %
[2018-04-12] MEDS: METOPROLOL TARTRATE 1 MG/ML VIAL IV SCH (06:00)
[2018-04-12] MEDS ORDERED: MAGNESIUM SULFATE / D5W 1 GM/100 ML BAG IV ONE ×2 (06:20→10:45)
[2018-04-12] MEDS: POTASSIUM CHLORIDE / WTR 20 MEQ/100 ML PLCT IV SCH ×3 (06:41→11:54)
--- NOTE | 2018-04-12 06:43 | XRay Report ---
XR chest 1V portable CLINICAL HISTORY: intubation COMPARISON STUDY: Chest radiograph April 11, 2018 at 3:18 PM. FINDINGS: The tip of the endotracheal tube is 4.4 cm above the meliza. Tip of nasogastric tube is bel ow the lower aspect of this image but at least within the proximal stomach. A right subclavian centra l line remains in place. Several old left rib fractures are incidentally noted. There is no pneumotho rax. A small to moderate right pleural effusion is noted. Right lower lung airspace opacity has incre ased with evidence for volume loss. IMPRESSION: 1. Satisfactory positioning of lines and tubes. 2. Increasing right basilar opacity with volume loss. This may reflect right lower lobe atelectasis o r pneumonia. 3. Small to moderate right pleural effusion. Electronically signed by: Benedict Vaughn M.D. 04/12/2018 6:42 AM
[2018-04-12 06:50] LABS: INR 1.3 (0.9-1.1); Prothrombin Time 13.5 Seconds (9.0-12.0)
[2018-04-12 06:59] LABS: Basophilic Stippling 2+; Basophils # (auto) 0.01 K/uL (0-0.2); Basophils % (auto) 0.1 %; Hematocrit (blood only) 37.4 % (37-47); Hemoglobin 12.8 g/dL (12.0-16.0); Immature Granulocytes # (auto) 0.04 K/uL (0.00-0.02); Immature Granulocytes % (auto) 0.3 %; Lymphocytes # (auto) 0.33 K/uL (1.2-3.4); Lymphocytes % (auto) 2.5 %; Mean Corpuscular Hgb Conc 34.2 g/dL (32-36); Mean Corpuscular Volume 90.8 fL (80-100); Monocytes # (auto) 1.24 K/uL (0.11-0.59); Monocytes % (auto) 9.3 %; Neutrophils # (auto) 11.71 K/uL (1.4-6.5); Neutrophils % (auto) 87.8 %; Platelet Count 51 K/uL (130-400); Platelet Estimate Decreased (Normal); RDW Coefficient of Variation 19.5 % (11.5-14.5); RDW Standard Deviation 65.3 fL (36.4-46.3); Red Blood Count 4.12 M/uL (4.2-5.4); White Blood Count 13.33 K/uL (4.8-10.8)
--- NOTE | 2018-04-12 07:56 | Critical Care Progress Note ---
Date of Service April 12, 2018 Assessment & Plan (1) Alcohol withdrawal: Ms. gutierres is a 53-year-old female who was transferred for possible GI bleed. No current evidence of active bleeding. Patient became encephalopathic secondary to alcohol withdrawal versus liver failure. Currently intubated, will remain in ICU for further management. Neuro: Acute encephalopathy -Patient became unresponsive, requiring intubation for airway protection -Metabolic versus toxic versus hepatic -Ammonia negative, currently having diarrhea on lactulose, goal 2-3 bowel movements per day Alcohol withdrawal: Hyperactive delirium -Delirium tremors -Unclear baseline alcohol consumption -Continue phenobarbital, Versed drip -RASS every 4 hours goal RASS 0-1 -IV metoprolol 5 mg every 6 hours Suicidal ideation Psychiatric illness: Major depressive disorder versus personality disorder -Patient under 302 currently undergoing medical stabilization -Unable to confirm psychiatric regimen or home dosing regimen. -Consult psych after patient stabilized. Chronic pain -Chronic pain pump -Receiving 18 mg IV morphine daily and 2.52 mcg fentanyl daily Resp: Acute hypoxic respiratory failure/ pneumonia- -CT abdomen and pelvis 04/12: Small bilateral pleural effusion, No evidence of pulmonary emboli, concern for pneumonia -Patient intubated after becoming unresponsive, ventilator settings have increased due to worsening hypoxia -Current vent setting: AC VC 16/450/15/ 100% -AB.5 04/12/97/20 -Started on cefepime -MRSA nasal negative on admission CV: Tachycardia-IV metoprolol 5 mg every 6 hours Elevated troponins -Adrenergic storms secondary to alcohol withdrawal versus non-ST elevation FL versus nutritional deficiency -Echocardiogram EF of 20-25% -Cardiology consult, appreciate their recs -We will continue with diuresis, repleting electrolytes, not currently requiring inotropic support Hypotensionlikely secondary to poor EF versus sepsis 2/2 PNA, started on dobutamine, improved Fluids/Renal: TYRONE present on admission since resolved -Custom IV fluid at this time. -Holding additional IV fluids given amounts through medications will be approximately 65 mL's per hour High gap metabolic acidosis -Resolved ID: Cefepime, see pneumonia above GI/Nutrition: Transaminitis -Unable to obtain Tylenol level, due to tests compromised due to Icterus -Empiric Mucomyst -Meld: 15 from previous 19 yesterday, monitor -Patient would not be deemed a transplant candidate given his suicidal ideation and continued alcohol abuse -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 GI consult for common bile duct pathology Heme: Anemia Thrombocytopenia -Improved, continue to trend DVT prophylaxis: Chemical prophylaxis contraindicated, SCDs present Endocrine: ICU hyperglycemia protocol Vascular access: Right subclavian placed at outside hospital Code Status: Full Supervising Physician Co-Signing Physician Notes Reason Critically Ill: 53-year-old female with acute encephalopathy and hyperactive delirium secondary to alcohol withdrawal PLAN: Neuro: Acute encephalopathy -Metabolic likely secondary to chronic disease state and pneumonic process -Ammonia less than 10, titrate lactulose to 2-3 bowel movements daily Alcohol withdrawal: Hyperactive delirium -Delirium tremens -Unclear baseline alcohol consumption -On Versed infusion for sedation -RASS every 4 hours goal RASS 0-1 Suicidal ideation Psychiatric illness: Major depressive disorder versus personality disorder -Patient under 302 currently undergoing medical stabilization -Unable to confirm psychiatric regimen or home dosing regimen. Chronic pain -Chronic pain pump -Receiving 18 mg IV morphine daily and 2.52 mcg fentanyl daily Resp: Acute hypoxic respiratory failure -Initial hypoxic respiratory failure was thought to be from volume overload in the setting of cardiomyopathy -Patient now has a white count and changes consistent with pneumonic process will add cefepime for coverage no indication for vancomycin as MRSA swab was negative this does not appear to be necrotic pneumonia CV: Tachycardia: Improved Elevated troponins: Improved -Adrenergic storms secondary to alcohol withdrawal versus non-ST elevation FL versus nutritional deficiency -Metoprolol: Decreasing from 10-5 mg given hypotension which I think is secondary to the pneumonic process -Echocardiogram: Reviewed -Cardiology consult reviewed Fluids/Renal: TYRONE present on admission since resolved High gap metabolic acidosis: Resolved Hypokalemia Hypophosphatemia -30 mmol K-Phos Hypomagnesemia -2 g magnesium sulfate ID: Viral hepatitis and HIV both negative GI/Nutrition: Transaminitis -Unable to check Tylenol level, test compromise due to Icterus -Empiric Mucomyst -Meld: 16: 04/10; meld 19: 04/11; meld 15: 04/12 improving -Patient would not be deemed a transplant candidate given his suicidal ideation and continued alcohol abuse -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 GI consult for common bile duct pathology Pancreatitis: Improving -Trickle tube feed at this time Heme: Anemia: Improving Thrombocytopenia: Improving -Likely anemia and thrombocytopenia secondary to disease process DVT prophylaxis: Lovenox prophylaxis, SCDs present Endocrine: ICU hyperglycemia protocol -Subcutaneous insulin Vascular access: Right subclavian placed at outside hospital, continuing subclavian access for 1 more day until possible sepsis resolves Code Status: Full I reviewed case management note from Divya Damon. Patient's previous contact of Mehul gutierres is reported to no longer have contact with the patient. I did call his phone number which is unable to leave a message and hangs up. I left a message for Joao gutierres to contact me ([phone]). Patient has a pneumonia that would extremely benefit from early bronchoscopy also secondary to mucoid impaction and hypoxic respiratory failure in the setting of a rather severe cardiomyopathy I feel it is prudent for early bronchoscopy I discussed the case with Dr. Chi the hospitalist and we will proceed with 2 physician consent for this emergent procedure. Patient was discussed in multidisciplinary rounds I have personally spent 40 minutes of critical care time in the direct management of this patient. This is a life/limb threatening event. This includes time spent evaluating patient, direct bedside care, chart review, placing orders, interpretation of diagnostic studies, discussion with consultants, patient, and/or family members regarding treatment decisions, as well as other required patient management activities. This time is exclusive of all separately billable procedures, and teaching time and separate from and in addition to any other critical care service time. Update: 1045 son Mehul return phone call and provided consent for bronchoscopy. Subjective Unable to obtain review of systems due to patient being sedated and intubated. Physical Exam Vital Signs (Past 24 Hours): Last Vital Signs Temp 36.5 C 04/11/18 20:00 Pulse 106 H 04/12/18 07:00 Resp 29 H 04/12/18 06:35 BP 107/90 04/12/18 07:00 Pulse Ox 100 04/12/18 07:00 Constitutional: Intubated and sedated, vitals as above Eyes: PERRLA, jaundiced sclera Neck: Trachea midline Respiratory: Lungs coarse in all lobes bilaterally, diminished in bases bilaterally, symmetrical chest movement, tachypnea on ventilator Cardiovascular: S1-S2 auscultated, good peripheral perfusion, radial and pedal pulses +2 bilaterally, no edema Gastrointestinal (Abdomen): Abdomen is flat and soft with highly palpable liver in right upper quadrant, normal bowel sounds in all 4 quadrants Neurologic: PERRLA, neuro exam affected by sedation Genitourinary: Dial, adequate urine output
[2018-04-12] MEDS ORDERED: INSULIN GLARGINE SOLOSTAR 100 UNITS/ML 3 ML PEN SC ONE ×2 (09:00→21:00)
[2018-04-12] MEDS ORDERED: OPTIRAY 320 125ml IV PRN (09:14)
--- NOTE | 2018-04-12 09:26 | CT Scan Report ---
CT head/brain wo con CT DOSE: HISTORY: Mental status change ams TECHNIQUE: Multiaxial CT images of the head were performed without the use of intravenous contrast. A dose lowering technique was utilized adhering to the principles of ALARA. Comparison: 10/04/2017 Findings: The paranasal sinuses and mastoid air cells are clear. The calvarium and skull base are int act. The ventricles and sulci are within normal limits. There is no mass, hematoma, midline shift, or acute infarct. Impression: No acute intracranial abnormality. No change from the prior study. The above report was generated using voice recognition software. It may contain grammatical, syntax or spelling errors. Electronically signed by: Mj Smith M.D. 04/12/2018 9:25 AM
[2018-04-12] MEDS: INSULIN ASPART 100 UNITS/ML 3 ML PEN SC SCH ×5 (09:44→23:33)
[2018-04-12] MEDS: PANTOprazole 40 MG in SYRINGE 0 ML IV SCH ×2 (09:45→20:19)
[2018-04-12] MEDS ORDERED: POTASSIUM PHOSPHATE 30 MMOL in SODIUM CHLORIDE 0.9% 500 ML IV ONE (09:45)
[2018-04-12] MEDS ORDERED: FUROSEMIDE 40 MG in SYRINGE 0 ML IV ONE (09:45)
[2018-04-12] MEDS: FOLIC ACID 1 MG in SYRINGE 9.8 ML IV SCH (09:47)
--- NOTE | 2018-04-12 09:58 | CT Scan Report ---
CT ANGIOGRAPHY OF THE CHEST, PULMONARY EMBOLUS PROTOCOL CLINICAL HISTORY: Respiratory difficulty. Intubation. COMPARISON STUDY: Chest CT October 29, 2015. Chest radiograph April 12, 2018. TECHNIQUE: Following IV administration of 118 mL of Optiray-320, helical axial images of the chest we re obtained utilizing the pulmonary embolus protocol. Maximal intensity projections and sagittal and coronal reformats were viewed on an independent 3D workstation. IV contrast was administered withou t complication. Automated exposure control was utilized for the study. A dose lowering technique wa s utilized adhering to the principles of ALARA. CT DOSE: 1235.40 mGy.cm FINDINGS: No pulmonary emboli are identified. The tip of the endotracheal tube is 2.7 cm above the c colleen. Tip of nasogastric tube is within the body of the stomach. No pulmonary emboli are identified. Small right and trace left pleural effusions are noted. Right lower lung aeration has improved since chest radiograph performed earlier today. Segmental bilateral lower lobe atelectasis is noted as wel l as right middle lobe segmental atelectasis. Moderate left lower lobe alveolar opacities are noted. There are mild left upper lobe alveolar opacities. Minimal airspace opacities within the right lung a re noted. There is no thoracic aortic dissection. No enlarged axillary, mediastinal or hilar lymph no praveena are present. A right subclavian central line is in place. There is no pneumothorax. Old thoracic spine compression fractures are noted. There are healing bilateral rib fractures. There is marked fat ty infiltration of the liver. IMPRESSION: 1. No pulmonary emboli identified. 2. Moderate left lower lobe alveolar opacities with scattered additional alveolar opacities suggestiv e of bronchopneumonia. 3. Segmental right middle lobe and bilateral lower lobe atelectasis. Small right and trace left pleur al effusions. Moderate airway secretions. 4. Marked fatty infiltration of the liver. Electronically signed by: Benedict Vaughn M.D. 04/12/2018 9:56 AM
[2018-04-12] MEDS ORDERED: CEFEPIME 2,000 MG in SYRINGE 0 ML IV ONE (10:45)
[2018-04-12] MEDS ORDERED: DOBUTamine 500MG / 250ML D5W IV ONE (10:52)
[2018-04-12] MEDS ORDERED: DOBUTamine / D5W 500 MG/250 ML BAG IV SCH (10:53)
[2018-04-12 10:56] LABS: iSTAT Allen Test Pass; iSTAT Arterial Blood Gas HCO3 24 meg/L (19-24); iSTAT Arterial Blood Gas pCO2 29 mmHg (35-46); iSTAT Arterial Blood Gas pH 7.52 (7.35-7.45); iSTAT Carbon Dioxide 25 mEq/l (24-31); iSTAT FiO2 60 %; iSTAT Site R Radial
[2018-04-12] MEDS: ENOXAPARIN INJ 40 MG/0.4 ML SYR SQ SCH (11:54)
[2018-04-12] MEDS ORDERED: METOPROLOL TARTRATE 1 MG/ML VIAL IV SCH (12:00)
[2018-04-12] MEDS: THIAMINE HCL 100 MG in SYRINGE 9 ML IV SCH (12:19)
[2018-04-12] MEDS ORDERED: NOREPINEPHRINE BIT INJ 8 MG in DEXTROSE 5% 500 ML IV PRN (13:13)
--- NOTE | 2018-04-12 13:13 | Gastroenterology Progress Note ---
Date of Service April 12, 2018 Assessment & Plan (1) Alcoholic hepatitis: Pt is a 53 y/o female currently seen for ETOH hepatitis, pancreatitis. Currently in ICU, on mechanical vent. Respiratory status worsen, ICU team planning emergent bronch Maddrey Discriminant Function Score 11. - Continue to follow daily LFTs, INR, BUN/Cr - Will obtain Factor V and VII to remaining liver function. - ETOH withdrawal protocol - Will follow along closely, consider transfer to tertiary care center if signs of liver failure but needs to be clinically stable. Supervising Physician Co-Signing Physician Notes I have seen and examined the patient with Meredith Diaz. 53 yo fm with severe alcoholic hepatitis/pancreatitis, hemodynamically unstable now on dobutamine as of 04/12/18, now with cardiomyopathy. She overall has a poor prognosis. Agree with serum factor v/vii levels to assess for liver reserve. CTA is negative for PE. CT head is normal. Overall, poor prognosis. Agree with further plan of care as documented in Meredith's assessment and plan. Subjective Pt on mechanical vent, unable to provide ROS. CT chest w/o PE but evidence of possible bronchopneumonia and pleural effusions. Head CT negative. BP soft, 60s/50s. She is now on trickle tube feed. Is having stool but no overt signs of bloody stools. H/H stable. Noted INR down to 1.3 from 1.7 yesterday. Tbili also decreased some but transaminases w slight rise. UOP 4L. BUN/Cr 14/0.74. Physical Exam Vital Signs (Past 24 Hours): Last Vital Signs Temp 37.1 C 04/12/18 08:08 Pulse 128 H 04/12/18 13:07 Resp 29 H 04/12/18 06:35 BP 85/50 L 04/12/18 13:07 Pulse Ox 100 04/12/18 11:00 Constitutional: + ill appearing and comfortable ENMT: external ear and nose normal, oropharynx normal Respiratory: Auscultation: + diminished lung sounds and + rhonchi on mechanical vent. Cardiovascular: RRR, no murmur, no edema Gastrointestinal (Abdomen): normal bowel sounds, soft, nontender, no hepatosplenomegaly Skin: no rashes, warm and dry no jaundice Neurologic: Motor/Sensory: no asterixis Psychiatric: sedated on mechanical vent. Lymphatic: no lymphedema
[2018-04-12 13:58] LABS: iSTAT Allen Test Pass; iSTAT Arterial Blood Gas HCO3 24 meg/L (19-24); iSTAT Arterial Blood Gas pCO2 26 mmHg (35-46); iSTAT Arterial Blood Gas pH 7.57 (7.35-7.45); iSTAT Carbon Dioxide 25 mEq/l (24-31); iSTAT FiO2 100 %; iSTAT Site L Radial
--- NOTE | 2018-04-12 14:58 | Pharmacy Report ---
Pharmacy Glycemic Short Note 2 - Date of Service April 12, 2018 - Glycemic Short BSG Results (Last 24 hours): 04/11/18 04/11/18 04/11/18 15:14 17:58 21:48 Glucose 146 H POC Glucose 152 H 174 H 04/12/18 04/12/18 04/12/18 04:41 05:48 11:58 Glucose 173 H POC Glucose 172 H 191 H OUTPATIENT ANTIDIABETIC REGIMEN: * N/A * Al1c 4.8% ASSESSMENT: 04/13 * Patient's received 20 units of basal insulin yesterday, BSGs between 142-174 * Patient BSG this morning 172, tube feeds started at 10ml/hr * Hypotensive, started on levophed, dobutamine, continues to be intubated * Slightly tighten correction factor 04/12 * Patient continues to be intubated, transitioned off of insulin drip this morning ~0130 * Lantus 10 units x 1 this morning, CF/CR weight based stress of 2 * BSGs have been within goal range 142/148 * Continues on methylprednisolone BID and ventilation PLAN FOR INPATIENT GLYCEMIC CONTROL: * Hold outpatient oral diabetes medications * Basal insulin * Lantus 10 units x 1, lantus 5/10 units on scale * Hold if BSG <110 * 110-180: 10 units * >180: 12 units * Bolus insulin * NovoLog per scale ACHS or Q6hrs while NPO * Goal Range: Low 140 mg/dL - High 180 mg/dL * Correction Factor: 30 mg/dL/unit * Nutritional / Prandial insulin per carb ratio of 1 unit per 12 grams CHO consumed PLAN FOR DISCHARGE: * Do not anticipate outpatient need
[2018-04-12] MEDS ORDERED: fentaNYL citrate 100 MCG/2 ML VIAL ONE ×2 (15:21→18:29)
[2018-04-12] MEDS ORDERED: fentaNYL citrate 100 MCG/2 ML VIAL IV ONE (15:25)
--- NOTE | 2018-04-12 15:46 | Procedure Note ---
Procedure Note: Bronchoscopy Procedure Procedure date: Noted above Procedure: fiberoptic bronchoscopy Pre-procedure Diagnosis: New infiltrates new oxygen requirement mucoid impaction of right middle lobe Post-procedure Diagnosis: same as above Prior to Procedure: Informed Consent: The risks, benefits, indications, potential complications, and alternatives were explained to the patient's son and informed consent obtained. Attending Staff: Carolee Tao DO Resident/APC: Not applicable Skin Prep: Not applicable Anesthesia: Continuous Versed, 200 mcg fentanyl Indications: 53-year-old female with acute hypoxic respiratory failure with new oxygen requirement, mucoid impaction of the right middle lobe. The identity of the patient was confirmed and a bedside time out was performed. Description of Procedure: Fiberoptic bronchoscopy was performed via endotracheal tube. Bronchioalveolar lavage left lingula and right middle lobe was performed. Findings included: Significant white purulent secretions were suctioned from the right main bronchus into the right middle lobe and right lower lobes as well as the left bronchi especially of the left lower and left lingula. Complications: None Specimens: Bronchial washings sent for culture and Gram stain, cytology, fungal elements, and AFB stain and culture. Estimated blood loss: Zero
[2018-04-12] MEDS: MIDAZOLAM HCL 125 MG/250 ML BAG IV SCH (16:41)
--- NOTE | 2018-04-12 16:55 | Cardiology Progress Note ---
Date of Service April 12, 2018 Assessment & Plan (1) Cardiomyopathy: She did develop hypotension this morning. The etiology is unclear. There is a thought that this may be distributive shock. Initial trial of dobutamine was not as efficacious as norepinephrine. Currently she is on pressor support. Previously she affected a good diuresis. However, additional diuretics are being held given her relative hypotension. She was also notably hypoxic and has a greater oxygen requirement this afternoon. Current thought is that she has an element of pneumonia. A bubble study will be performed to exclude hepatopulmonary shunting. A less likely diagnosis is pulmonary vascular congestion. Will need to continueSupportive measures with supplemental oxygen and mechanical ventilation. (2) NSTEMI (non-ST elevated myocardial infarction): Cardiac biomarkers are trending downward despite her critical illness. This was not likely an acute coronary syndrome. She has a known cardiomyopathy does more likely related to alcohol toxicity than ischemia. Continuing supportive measures with maintenance of good blood pressures, control of heart rate, good oxygenation and good hemoglobin levels is imperative. She has been administered beta-blockers in the past but these could certainly be held during her current episode of hypotension. Subjective The patient remains intubated and sedated. Physical Exam Vital Signs (Past 24 Hours): Last Vital Signs Temp 37.5 C 04/12/18 15:45 Pulse 97 H 04/12/18 15:45 Resp 29 H 04/12/18 06:35 BP 89/69 L 04/12/18 15:45 Pulse Ox 98 04/12/18 15:45 Physical Exam: Intubated and sedated HEENT: Sclerae mildly icteric Neuro: Cannot be assessed due to sedation Lungs: Coarse upper bronchial breath sounds throughout all lung kerr. respiratory effort without use of accessory muscles. There is normal pulmonary excursion. Cardiac: The rhythm was regular. S1 and S2 were normal. There are no murmurs on examination. The PMI was not markedly displaced on palpation. Abdomen: Mildly distended Extremities: Patient has bilateral radial pulses that are equal in intensity. There is no evidence cyanosis or clubbing. There was no evidence of significant peripheral edema bilaterally. Skin: There are no rashes noted on examination today. Results & Data Laboratory Results Abnormal Lab Results 04/11/18 04/11/18 04/12/18 17:58 21:48 02:36 WBC RBC Hgb Hct MCV MCH MCHC RDW Std Deviation RDW Coeff of Chetan Plt Count Immature Gran % (Auto) Neut % (Auto) Lymph % (Auto) Elbert % (Auto) Eos % (Auto) Baso % (Auto) Immature Gran # (Auto) Neut # (Auto) Lymph # (Auto) Elbert # (Auto) Eos # (Auto) Baso # (Auto) Absolute Nucleated RBC Nucleated RBC % (auto) Platelet Estimate Basophilic Stippling PT INR Sample Site R Radial POC pH 7.52 H* POC pCO2 29 L POC pO2 59 L POC HCO3 24 POC Total CO2 25 POC Base Excess 1.0 POC ABG O2 Sat 93.0 Jaxon Test Pass O2 Delivery Device Ventilator POC O2 Rate 24 Minute Ventilation 14 POC FiO2 60 Tidal Volume 500 PEEP 10 Sodium Potassium Chloride Carbon Dioxide Anion Gap BUN Creatinine Est Cr Clr Drug Dosing Est GFR ( Amer) Est GFR (Non-Af Amer) BUN/Creatinine Ratio Glucose POC Glucose 152 H 174 H Calcium Phosphorus Magnesium Total Bilirubin Direct Bilirubin AST ALT Alkaline Phosphatase Troponin I Total Protein Albumin Lipase 04/12/18 04/12/18 04/12/18 04:41 04:41 04:41 WBC 13.33 H RBC 4.12 L Hgb 12.8 Hct 37.4 MCV 90.8 MCH 31.1 MCHC 34.2 RDW Std Deviation 65.3 H RDW Coeff of Chetan 19.5 H Plt Count 51 L Immature Gran % (Auto) 0.3 Neut % (Auto) 87.8 Lymph % (Auto) 2.5 Elbert % (Auto) 9.3 Eos % (Auto) 0.0 Baso % (Auto) 0.1 Immature Gran # (Auto) 0.04 H Neut # (Auto) 11.71 H Lymph # (Auto) 0.33 L Elbert # (Auto) 1.24 H Eos # (Auto) 0.00 Baso # (Auto) 0.01 Absolute Nucleated RBC 0.06 H Nucleated RBC % (auto) 0.4 Platelet Estimate Decreased Basophilic Stippling 2+ PT 13.5 H INR 1.3 H Sample Site POC pH POC pCO2 POC pO2 POC HCO3 POC Total CO2 POC Base Excess POC ABG O2 Sat Jaxon Test O2 Delivery Device POC O2 Rate Minute Ventilation POC FiO2 Tidal Volume PEEP Sodium 138 Potassium 2.4 L* D Chloride 97 L Carbon Dioxide 30 Anion Gap 11.0 BUN 14 Creatinine 0.74 Est Cr Clr Drug Dosing 78.2 Est GFR ( Amer) 106.5 Est GFR (Non-Af Amer) 91.8 BUN/Creatinine Ratio 18.7 Glucose 173 H POC Glucose Calcium 7.6 L Phosphorus 1.7 L Magnesium 1.7 L Total Bilirubin 4.5 H Direct Bilirubin 3.1 H AST 818 H ALT 275 H Alkaline Phosphatase 323 H Troponin I 0.535 H* Total Protein 6.3 L Albumin 3.4 Lipase 2167 H 04/12/18 04/12/18 04/12/18 05:48 11:58 13:46 WBC RBC Hgb Hct MCV MCH MCHC RDW Std Deviation RDW Coeff of Chetan Plt Count Immature Gran % (Auto) Neut % (Auto) Lymph % (Auto) Elbert % (Auto) Eos % (Auto) Baso % (Auto) Immature Gran # (Auto) Neut # (Auto) Lymph # (Auto) Elbert # (Auto) Eos # (Auto) Baso # (Auto) Absolute Nucleated RBC Nucleated RBC % (auto) Platelet Estimate Basophilic Stippling PT INR Sample Site L Radial POC pH 7.57 H* POC pCO2 26 L POC pO2 77 L POC HCO3 24 POC Total CO2 25 POC Base Excess 2.0 H POC ABG O2 Sat 97.0 H Jaxon Test Pass O2 Delivery Device Ventilator POC O2 Rate 24 Minute Ventilation POC FiO2 100 Tidal Volume PEEP 10 Sodium Potassium Chloride Carbon Dioxide Anion Gap BUN Creatinine Est Cr Clr Drug Dosing Est GFR ( Amer) Est GFR (Non-Af Amer) BUN/Creatinine Ratio Glucose POC Glucose 172 H 191 H Calcium Phosphorus Magnesium Total Bilirubin Direct Bilirubin AST ALT Alkaline Phosphatase Troponin I Total Protein Albumin Lipase ECG Additional Comments: Persistent sinus tachycardia (1) Cardiomyopathy Cardiomyopathy type: alcoholic Qualified Code(s): I42.6 - Alcoholic cardiomyopathy
[2018-04-12 17:05] LABS: BUN Creatinine Ratio 21.8 (10-20); Calcium 7.1 mg/dl (8.5-10.1); Creatinine Clr Calc Pharmacy 96.5 ml/min; Est GFR (African American) 119.8; Est GFR (Non-African American) 103.3; Magnesium 2.3 mg/dl (1.8-2.4)
[2018-04-12 17:06] LABS: Potassium 4.8 mmol/L (3.5-5.1)
[2018-04-12] MEDS ORDERED: INSULIN ASPART 100 UNITS/ML 3 ML PEN SC SCH (18:00)
[2018-04-12 18:21] LABS: iSTAT Allen Test Pass; iSTAT Arterial Blood Gas HCO3 28 meg/L (19-24); iSTAT Arterial Blood Gas pCO2 31 mmHg (35-46); iSTAT Arterial Blood Gas pH 7.56 (7.35-7.45); iSTAT Carbon Dioxide 29 mEq/l (24-31); iSTAT FiO2 100 %; iSTAT Site L Radial
[2018-04-12] MEDS ORDERED: fentaNYL citrate 100 MCG/2 ML VIAL IV STA (18:32)
[2018-04-12] MEDS: CEFEPIME 2,000 MG in SYRINGE 0 ML IV SCH (18:52)
--- NOTE | 2018-04-12 22:40 | Hospitalist Progress Note ---
Date of Service April 12, 2018 Assessment & Plan (1) Alcohol withdrawal: As noted below. (2) Alcoholic hepatitis: Patient has transaminases in the thousand range she is having increased alcohol intake of late. Some concern of alcoholic hepatitis. However her coagulation studies seem to be relatively intact. The patient in the intensive care unit and follow her LFTs she is stopped her alcohol use will watch her for alcohol withdrawal intensive care physician is chosen phenobarbital for this prevention Patient is alcohol associated thrombocytopenia. Discussed case with GI, unable to determine if patient has cirrhosis or alcohol hepatitis. Even if she has cirrhosis, unlikely to obtain transplant given that she continues to drink. She would need at least 6 months of abstinence from alcohol. (3) Coffee ground emesis: Reported coffee-ground emesis while at [facility] H&H were 10 and 33 patient is on a Protonix drip Hemoglobin has remained stable. On PPI. (4) Hypokalemia: Patient is hypokalemic this is in the face of acidemia this may worsen we will continue to watch carefully. On 04/12 she was hypokalemic in AM.. Aggresively replaced (5) Acute kidney injury: By the outpatient labs patient's creatinine was 2.9 she was hydrated aggressively we will have her on maintenance fluids and recheck her labs frequently Resolved. (6) Suicide attempt: Patient is a 302 the warranted signed the patient on suicide watch and she will likely need to go to psychiatric care once she is stabilized medically (7) Acute metabolic encephalopathy: Heptaic vs alcoholic vs toxic. -Ammonia negative, currently having diarrhea on lactulose, goal 2-3 bowel movements per dayPatient developed DT and became confused and agitated. patient required intubation for airway protection. She will remain in the ICU for the time being. On thiamine (8) Delirium tremens: As noted above. Chronic pain -Chronic pain pump -Receiving in the pump 18 mg IV morphine daily and 2.52 mcg fentanyl daily (9) Acute respiratory failure with hypoxia: -Bilateral pleural effusion seen on CT scan Possible pneumonia. Started on cefepime. Procalcitonin is elevated. Patient does not have any evidence of pulmonary emboli Intubated as noted above. Managed by sales account director (10) Cardiomyopathy: Appreciate cardiac input. Patient has a history of reduced LV systolic function. LV function is worse when compared to previous echo. Etiology is unknown, it is likely related to chronic alcohol abuse. Currently patient developed pulmonary edema. She was aggressively hydrated due to volume depletion at the time of admission. If her clinical course improves, we can consider addition of oral beta blockade and YURI-I. (11) Demand ischemia: Probable NSTEMI (non-ST elevated myocardial infarction): Patient had mildly elevated trop. May be from demand ischemia. Cardio does not believe this to be an active ACS. Appreciate cardio input: Use of beta blockers for her withdrawal symptoms would also be beneficial from a cardiac perspective. Subjective Patient is still sedated and intubated. Unable to obtain history. Unable to reach family. Unable to obtain review of systems due to patient being sedated and intubated. Physical Exam Vital Signs (Past 24 Hours): Last Vital Signs Temp 37.5 C 04/12/18 16:00 Pulse 97 H 04/12/18 20:06 Resp 10 L 04/12/18 20:06 BP 110/86 04/12/18 18:30 Pulse Ox 99 04/12/18 20:06 Physical Exam: The patient thin and is sedated and intubated Vital signs as documented. Head exam is unremarkable. normocephalic, atraumatic Neck is with jugular venous distension, thyromegaly, or lymphademopathy Lungs are diminished but no focal air loss Cardiac exam reveals tachycardic Abdominal exam reveals normal bowel sounds, no masses, no organomegaly Extremities are nonedematous and both pedal pulses are present Neurologic exam is intubated and sedated which limits this exam. Psychologically seems anxious and depressed Skin is warm Dry (1) Cardiomyopathy Cardiomyopathy type: alcoholic Qualified Code(s): I42.6 - Alcoholic cardiomyopathy
[2018-04-13] MEDS: fentaNYL citrate 100 MCG/2 ML VIAL IV PRN ×3 (00:35→05:50)
[2018-04-13] MEDS: CEFEPIME 2,000 MG in SYRINGE 0 ML IV SCH ×3 (03:44→18:36)
[2018-04-13] MEDS: INSULIN ASPART 100 UNITS/ML 3 ML PEN SC SCH ×4 (04:04→22:01)
[2018-04-13 04:50] LABS: Mean Corpuscular Hgb Conc 33.3 g/dL (32-36); Nucleated RBC # (auto) 0.06 K/uL (0-0); Nucleated RBC % (auto) 1.1 %
[2018-04-13 05:19] LABS: INR 1.3 (0.9-1.1); Prothrombin Time 12.9 Seconds (9.0-12.0)
[2018-04-13] MEDS: MIDAZOLAM HCL 125 MG/250 ML BAG IV SCH (05:20)
[2018-04-13 05:34] LABS: Hematocrit (blood only) 31.2 % (37-47); Hemoglobin 10.4 g/dL (12.0-16.0); Mean Corpuscular Volume 92.3 fL (80-100); RDW Coefficient of Variation 19.9 % (11.5-14.5); RDW Standard Deviation 67.1 fL (36.4-46.3); Red Blood Count 3.38 M/uL (4.2-5.4); White Blood Count 5.31 K/uL (4.8-10.8)
[2018-04-13 05:35] LABS: Albumin Level 2.5 gm/dl (3.4-5.0); BUN Creatinine Ratio 31.5 (10-20); Bilirubin Direct 2.3 mg/dl (0-0.2); Bilirubin,Total 3.1 mg/dl (0.2-1); Calcium 7.4 mg/dl (8.5-10.1); Creatinine Clr Calc Pharmacy 118.1 ml/min; Est GFR (Non-African American) 110.5; Magnesium 2.2 mg/dl (1.8-2.4); Phosphorus 1.6 mg/dl (2.5-4.9); Potassium 3.2 mmol/L (3.5-5.1); Total Protein 5.4 gm/dl (6.4-8.2)
[2018-04-13 05:40] LABS: Platelet Count 50 K/uL (130-400)
[2018-04-13 05:42] LABS: Anisocytosis Present; Basophils # (auto) 0.01 K/uL (0-0.2); Basophils % (auto) 0.2 %; Giant Platelets 1+; Immature Granulocytes # (auto) 0.03 K/uL (0.00-0.02); Immature Granulocytes % (auto) 0.6 %; Lymphocytes # (auto) 0.27 K/uL (1.2-3.4); Lymphocytes % (auto) 5.1 %; Monocytes # (auto) 0.91 K/uL (0.11-0.59); Monocytes % (auto) 17.1 %; Neutrophils # (auto) 4.09 K/uL (1.4-6.5); Pappenheimer Bodies 1+; Platelet Estimate Decreased (Normal); Polychromasia 1+; Toxic Granulation 1+
[2018-04-13 05:49] LABS: iSTAT Allen Test Pass; iSTAT Arterial Blood Gas HCO3 27 meg/L (19-24); iSTAT Arterial Blood Gas pCO2 35 mmHg (35-46); iSTAT Arterial Blood Gas pH 7.49 (7.35-7.45); iSTAT Carbon Dioxide 28 mEq/l (24-31); iSTAT FiO2 45 %; iSTAT Site L Radial
[2018-04-13] MEDS ORDERED: POTASSIUM PHOS 3 MMOL/1 ML INFUSION IV STA (05:50)
[2018-04-13] MEDS: POTASSIUM CHLORIDE / WTR 20 MEQ/100 ML PLCT IV SCH ×2 (06:18→08:17)
[2018-04-13] MEDS ORDERED: POTASSIUM PHOSPHATE 15 MMOL in SODIUM CHLORIDE 0.9% 250 ML IV ONE (06:30)
--- NOTE | 2018-04-13 07:07 | Critical Care Progress Note ---
Date of Service April 13, 2018 Assessment & Plan (1) Alcohol withdrawal: Ms. gutierres is a 53-year-old female who was transferred for possible GI bleed. No current evidence of active bleeding. Patient became encephalopathic secondary to alcohol withdrawal versus liver failure. Required intubation, now extubated BiPAP. Will remain in ICU for further management. Neuro: Acute encephalopathy -Patient became unresponsive, requiring intubation for airway protection -Metabolic versus toxic versus hepatic -Ammonia negative, currently having diarrhea on lactulose, goal 2-3 bowel movements per day Alcohol withdrawal: Hyperactive delirium -Delirium tremors -Unclear baseline alcohol consumption -AWSS scores and Ativan as needed Suicidal ideation Psychiatric illness: Major depressive disorder versus personality disorder -Patient under 302 currently undergoing medical stabilization -Unable to confirm psychiatric regimen or home dosing regimen. -Consult psych after patient stabilized. Chronic pain -Chronic pain pump -Receiving 18 mg IV morphine daily and 2.52 mcg fentanyl daily Resp: Acute hypoxic respiratory failure/ pneumonia- -CT abdomen and pelvis 04/12: Small bilateral pleural effusion, No evidence of pulmonary emboli, concern for pneumonia -Patient intubated after becoming unresponsive, ventilator settings have increased due to worsening hypoxia -04/12 bronched, samples pending in lab -04/13 extubated to BiPAP, now on nasal cannula 4 L -Started on cefepime -MRSA nasal negative on admission CV: Tachycardia-improved Elevated troponins -Adrenergic storms secondary to alcohol withdrawal versus non-ST elevation OH versus nutritional deficiency -Echocardiogram EF of 20-25% -Cardiology consult, appreciate their recs -We will continue with diuresis, repleting electrolytes, not currently requiring inotropic support Hypotensionlikely secondary to poor EF versus sepsis 2/2 PNA, dobutamine and levo fed weaned off, no longer requiring pressors Fluids/Renal: TYRONE resolved -Monitor oliguria and encourage oral fluids ID: Urine culture positive for staph aureus and Klebsiella resistant to ampicillin, continue cefepime GI/Nutrition: Transaminitis -Unable to obtain Tylenol level, due to tests compromised due to Icterus -Received Mucomyst -Meld: Score improving now 14 from previous 19 , monitor -Patient would not be deemed a transplant candidate given his suicidal ideation and continued alcohol abuse -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 GI consult for common bile duct pathology Heme: Anemia Thrombocytopenia -Improved, continue to trend DVT prophylaxis: Chemical prophylaxis contraindicated, SCDs present Endocrine: ICU hyperglycemia protocol Vascular access: Plan to remove central line after alternate peripheral access obtained Code Status: Full Supervising Physician Co-Signing Physician Notes Reason Critically Ill: 53-year-old female with acute encephalopathy and hyperactive delirium secondary to alcohol withdrawal PLAN: Neuro: Acute encephalopathy -Metabolic likely secondary to chronic disease state and pneumonic process -Ammonia less than 10, titrate lactulose to 2-3 bowel movements daily Alcohol withdrawal: Hyperactive delirium -Delirium tremens: Improved to resolved -Patient has basically finished a phenobarbital call that was interrupted by continuous benzodiazepine sedation for mechanical ventilation -Unclear baseline alcohol consumption -Will reinstitute alcohol withdrawal severity scoring -Instead of 1 mg Ativan based off of alcohol withdrawal scale we are transitioning to 10 mg Librium given significant liver disease Suicidal ideation Psychiatric illness: Major depressive disorder versus personality disorder -Patient under 302 currently undergoing medical stabilization -Unable to confirm psychiatric regimen or home dosing regimen. Chronic pain -Chronic pain pump -Receiving 18 mg IV morphine daily and 2.52 mcg fentanyl daily Resp: Acute hypoxic respiratory failure -Initial hypoxic respiratory failure was thought to be from volume overload in the setting of cardiomyopathy -Patient now has a white count and changes consistent with pneumonic process will add cefepime for coverage no indication for vancomycin as MRSA swab was negative this does not appear to be necrotic pneumonia -No growth to date at the time of this dictation -Improved extubation parameters, patient not participating well with instruction for taking deep breath, NIF was only -6 however at times she is taking much larger breaths -I feel patient would benefit from extubation and bridging with noninvasive mechanical ventilation as opposed to continued mechanical ventilation and further decompensation from a respiratory amplifier mechanic standpoint CV: Tachycardia: Improved Elevated troponins: Improved -Weaned off Levophed yesterday -Holding all beta-gayle at this time -I believe we are outside the adrenergic storm of alcohol withdrawal -Echocardiogram: Reviewed: No evidence of hepatopulmonary syndrome at this time -Cardiology consult reviewed Fluids/Renal: TYRONE present on admission since resolved High gap metabolic acidosis: Resolved Hypokalemia -40 M EQ Hypophosphatemia -15 mmol K-Phos Hypomagnesemia -1 g magnesium sulfate ID: Viral hepatitis and HIV both negative GI/Nutrition: Transaminitis -Unable to check Tylenol level, test compromise due to Icterus -Empiric Mucomyst -Meld: 16: 04/10; meld 19: 2/26; meld 15: 04/12; meld 14: Improving -Patient would not be deemed a transplant candidate given his suicidal ideation and continued alcohol abuse -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 GI consult for common bile duct pathology Pancreatitis: Improving -Holding tube feeding at this time secondary to extubation and noninvasive mechanical ventilation as a bridge to ventilator liberation Heme: Anemia: Improving Thrombocytopenia: Improving -Likely anemia and thrombocytopenia secondary to disease process DVT prophylaxis: Lovenox prophylaxis, SCDs present Endocrine: ICU hyperglycemia protocol -Subcutaneous insulin -Decreased to 30 mg every 12 hours Solu- Medrol Vascular access: Right subclavian placed at outside hospital, continuing subcla vian access for 1 more day until possible sepsis resolves -Evaluate for endurance catheter discontinue right subclavian today -Discontinue subclavian line today Code Status: Full Patient was discussed in multidisciplinary rounds I have personally spent 40 minutes of critical care time in the direct management of this patient. This is a life/limb threatening event. This includes time spent evaluating patient, direct bedside care, chart review, placing orders, interpretation of diagnostic studies, discussion with consultants, patient, and/or family members regarding treatment decisions, as well as other required patient management activities. This time is exclusive of all separately billable procedures, and teaching time and separate from and in addition to any other critical care service time. Subjective Ms. gutierres is a 53-year-old female who was transferred for possible GI bleed. No current evidence of active bleeding. Patient became encephalopathic secondary to alcohol withdrawal versus liver failure. Required intubation, now extubated to BiPAP. Will remain in ICU for further management. Review of Systems Unobtainable due to cognitive status Physical Exam Vital Signs (Past 24 Hours): Last Vital Signs Temp 37.4 C 04/13/18 04:00 Pulse 94 H 04/13/18 06:04 Resp 13 04/13/18 06:04 BP 95/67 L 04/13/18 06:00 Pulse Ox 98 04/13/18 06:04 Constitutional: + frail appearing and comfortable Eyes: PERRLA, sclera jaundiced Respiratory: Lungs coarse crackles auscultated bilaterally in all lobes, unlabored breathing on 4 L nasal cannula, normal respiratory rate, symmetrical chest wall movement Cardiovascular: S1-S2 auscultated good peripheral perfusion, pedal pulses and radial pulses +2 bilaterally, no edema Gastrointestinal (Abdomen): Right upper quadrant firm over liver and tender, left upper and lower quadrants soft nontender, bowel sounds auscultated in all 4 quadrants Neurologic: Patient oriented to self and place, generalized weakness, symmetrical strength bilaterally Genitourinary: Dial inserted, oliguria
--- NOTE | 2018-04-13 07:09 | XRay Report ---
XR chest 1V portable HISTORY: 53 years-old Female f/u acute respiratory failure. COMPARISON: Chest radiograph and CTA chest 04/12/2018 TECHNIQUE: Portable AP view of the chest FINDINGS: Endotracheal tube overlies the midline, 2.4 cm superior to the meliza. Enteric tube courses below the diaphragm outside the [id number]. Unchanged positioning of right subclavian central venous cathet er. Cardiac silhouette is mildly enlarged. Mild right hemidiaphragmatic elevation. Bibasilar opacitie s are noted, slightly progressed of the left and mildly improved on the right. Trace pleural effusion s, slightly decreased in the right. No pneumothorax or overt pulmonary edema. Degenerative changes of the shoulders and spine. Surgical clips project over the upper abdomen. IMPRESSION: 1. Lines and tubes as above. 2. Bibasilar opacities, mildly progressed on the left and mildly improved on the right. Findings are suggestive of atelectasis versus pneumonitis. Please refer to CT chest 04/12/2018 for further details. 3. Trace pleural effusions. The above report was generated using voice recognition software. It may contain grammatical, syntax o r spelling errors. Electronically signed by: Brennon Matos M.D. 04/13/2018 7:08 AM
[2018-04-13] MEDS: ENOXAPARIN INJ 40 MG/0.4 ML SYR SQ SCH (08:25)
[2018-04-13] MEDS: PANTOprazole 40 MG in SYRINGE 0 ML IV SCH ×2 (08:26→21:59)
[2018-04-13] MEDS: THIAMINE HCL 100 MG in SYRINGE 9 ML IV SCH (08:27)
[2018-04-13] MEDS: FOLIC ACID 1 MG in SYRINGE 9.8 ML IV SCH (08:27)
--- NOTE | 2018-04-13 10:28 | Gastroenterology Progress Note ---
Date of Service April 13, 2018 Assessment & Plan (1) Alcoholic hepatitis: Low discriminant function, so no indication for steroids. Significant improvement in MELD:14, no indication for transfer. No clear evidence of cirrhosis. Most important indicator of prognosis going forward is pt's ability to abstain from alcohol. Supervising Physician Co-Signing Physician Notes I have seen and examined and discussed the patient's management with ELANA Anne. Alcoholic hepatitis with adonis and also now with cardiomyopathy. Extubated. She is slowly arousable today at bedside, clean hair, soft abdomen. Lft's and INR showing improvement. Agree with further plan of care as per Mio's assessment and plan. Subjective Ms. Saldana is awake, able to follow commands, still ventilated, but plans for possible extubation today. Significant improvement in LFTs today: T bili 4.5->3.4, D Bili 3.1->2.3, AST 818->343, ALT 275->189. Kidney function remains normal. Significant cardiopathy: EF 20%. Respiratory: no cough and no wheezing Physical Exam Vital Signs (Past 24 Hours): Last Vital Signs Temp 36.9 C 04/13/18 07:30 Pulse 90 04/13/18 07:30 Resp 13 04/13/18 06:04 BP 93/64 L 04/13/18 07:30 Pulse Ox 96 04/13/18 07:30 Eyes: PATRICIA, mild icterus ENMT: external ear and nose normal, oropharynx normal Neck: trachea midline, no thyromegaly Respiratory: no respiratory distress, no retractions, does not use accessory muscles and no cough Auscultation: no crackles, no rales and no wheezes Cardiovascular: Rate/Rhythm: regular rate and regular rhythm Heart Sounds: normal S1 and normal S2 Vessels: + JVD Extremities: + edema (hands, slight lower leg edema) Gastrointestinal (Abdomen): Percussion/Palpation: abdomen soft; abdomen n ontender and no guarding Skin: no rashes, warm and dry no jaundice Neurologic: awake Motor/Sensory: no tremor Cranial Nerves: PERRL Lymphatic: no cervical or axillary lymphadenopathy Results & Data Laboratory Results See HPI
--- NOTE | 2018-04-13 11:01 | Cardiology Progress Note ---
Date of Service April 13, 2018 Assessment & Plan (1) Cardiomyopathy: Patient's hypotension appears to have resolved. She required some pressor support yesterday but this has been weaned in her blood pressure is now normal. She was also extubated today. An echocardiogram was performed in order to exclude hepatopulmonary shunting given increased oxygen requirements yesterday. On this echocardiogram she was noted to have improved LV systolic function. I think her volume status is also good. Do not believe she has any pulmonary vascular congestion. Her oxygen requirements which increased yesterday have now normalized. I would advocate a transition to oral beta-blockers and eventual initiation of Naveen inhibition once her hemodynamics have stabilized. (2) NSTEMI (non-ST elevated myocardial infarction): Markers returning down yesterday. No symptoms of chest pain currently. I do not believe she requires an ischemic evaluation at this time. When she is more ambulatory will have a better way to assess symptoms possibly associated with occult coronary disease. As noted above, continuation of beta-blockade orally when she is eating seems reasonable. I do not believe she requires aspirin therapy from a cardiac standpoint currently. Also less desirable given the concern over gastrointestinal hemorrhage and thrombocytopenia. Subjective This morning the patient had just been extubated. She was still somewhat sleepy but did follow commands. Physical Exam Vital Signs (Past 24 Hours): Last Vital Signs Temp 36.9 C 04/13/18 07:30 Pulse 90 04/13/18 08:00 Resp 12 04/13/18 08:45 BP 93/64 L 04/13/18 07:30 Pulse Ox 97 04/13/18 08:00 Physical Exam: Somewhat somnolent, but easily arousable and following commands. HEENT: Sclerae are mildly icteric. Neuro: Cranial nerves intact Lungs: Coarse upper airway sounds throughout all lung kerr Cardiac: The rhythm was regular. S1 and S2 were normal. There are no murmurs on examination. The PMI was not markedly displaced on palpation. Abdomen: Mildly distended. Nontender. Extremities: Patient has bilateral radial pulses that are equal in intensity. There is no evidence cyanosis or clubbing. There was no evidence of significant peripheral edema bilaterally. Skin: There are no rashes noted on examination today. Results & Data Laboratory Results Abnormal Lab Results 04/12/18 04/12/18 04/12/18 11:58 13:46 16:15 WBC RBC Hgb Hct MCV MCH MCHC RDW Std Deviation RDW Coeff of Chetan Plt Count Immature Gran % (Auto) Neut % (Auto) Lymph % (Auto) [place] % (Auto) Eos % (Auto) Baso % (Auto) Immature Gran # (Auto) Neut # (Auto) Lymph # (Auto) [place] # (Auto) Eos # (Auto) Baso # (Auto) Absolute Nucleated RBC Nucleated RBC % (auto) Toxic Granulation Platelet Estimate Giant Platelets Polychromasia Anisocytosis Pappenheimer Bodies PT INR Sample Site L Radial POC pH 7.57 H* POC pCO2 26 L POC pO2 77 L POC HCO3 24 POC Total CO2 25 POC Base Excess 2.0 H POC ABG O2 Sat 97.0 H Jaxon Test Pass O2 Delivery Device Ventilator POC O2 Rate 24 POC FiO2 100 PEEP 10 Pressure Support Vent Sodium 138 Potassium 4.8 D Chloride 102 Carbon Dioxide 29 Anion Gap 7.0 BUN 13 Creatinine 0.60 Est Cr Clr Drug Dosing 96.5 Est GFR ( Amer) 119.8 Est GFR (Non-Af Amer) 103.3 BUN/Creatinine Ratio 21.8 H Glucose 175 H POC Glucose 191 H POC Glucose (other) Calcium 7.1 L Phosphorus 5.0 H D Magnesium 2.3 Total Bilirubin Direct Bilirubin AST ALT Alkaline Phosphatase Total Protein Albumin Procalcitonin 04/12/18 04/12/18 04/12/18 16:15 18:06 20:13 WBC RBC Hgb Hct MCV MCH MCHC RDW Std Deviation RDW Coeff of Chetan Plt Count Immature Gran % (Auto) Neut % (Auto) Lymph % (Auto) [place] % (Auto) Eos % (Auto) Baso % (Auto) Immature Gran # (Auto) Neut # (Auto) Lymph # (Auto) [place] # (Auto) Eos # (Auto) Baso # (Auto) Absolute Nucleated RBC Nucleated RBC % (auto) Toxic Granulation Platelet Estimate Giant Platelets Polychromasia Anisocytosis Pappenheimer Bodies PT INR Sample Site L Radial POC pH 7.56 H* POC pCO2 31 L POC pO2 304 H POC HCO3 28 H POC Total CO2 29 POC Base Excess 6.0 H POC ABG O2 Sat 100.0 H Jaxon Test Pass O2 Delivery Device Ventilator POC O2 Rate 16 POC FiO2 100 PEEP 15 Pressure Support Vent Sodium Potassium Chloride Carbon Dioxide Anion Gap BUN Creatinine Est Cr Clr Drug Dosing Est GFR ( Amer) Est GFR (Non-Af Amer) BUN/Creatinine Ratio Glucose POC Glucose POC Glucose (other) 186 H Calcium Phosphorus Magnesium Total Bilirubin Direct Bilirubin AST ALT Alkaline Phosphatase Total Protein Albumin Procalcitonin 0.59 H 04/12/18 04/13/18 04/13/18 23:32 03:51 04:29 WBC 5.31 RBC 3.38 L Hgb 10.4 L Hct 31.2 L MCV 92.3 MCH 30.8 MCHC 33.3 RDW Std Deviation 67.1 H RDW Coeff of Chetan 19.9 H Plt Count 50 L Immature Gran % (Auto) 0.6 Neut % (Auto) 77.0 Lymph % (Auto) 5.1 [place] % (Auto) 17.1 Eos % (Auto) 0.0 Baso % (Auto) 0.2 Immature Gran # (Auto) 0.03 H Neut # (Auto) 4.09 Lymph # (Auto) 0.27 L [place] # (Auto) 0.91 H Eos # (Auto) 0.00 Baso # (Auto) 0.01 Absolute Nucleated RBC 0.06 H Nucleated RBC % (auto) 1.1 Toxic Granulation 1+ Platelet Estimate Decreased Giant Platelets 1+ Polychromasia 1+ Anisocytosis Present Pappenheimer Bodies 1+ PT INR Sample Site POC pH POC pCO2 POC pO2 POC HCO3 POC Total CO2 POC Base Excess POC ABG O2 Sat Jaxon Test O2 Delivery Device POC O2 Rate POC FiO2 PEEP Pressure Support Vent Sodium Potassium Chloride Carbon Dioxide Anion Gap BUN Creatinine Est Cr Clr Drug Dosing Est GFR ( Amer) Est GFR (Non-Af Amer) BUN/Creatinine Ratio Glucose POC Glucose POC Glucose (other) 158 H 139 H Calcium Phosphorus Magnesium Total Bilirubin Direct Bilirubin AST ALT Alkaline Phosphatase Total Protein Albumin Procalcitonin 04/13/18 04/13/18 04/13/18 04:29 04:29 04:29 WBC RBC Hgb Hct MCV MCH MCHC RDW Std Deviation RDW Coeff of Chetan Plt Count Immature Gran % (Auto) Neut % (Auto) Lymph % (Auto) [place] % (Auto) Eos % (Auto) Baso % (Auto) Immature Gran # (Auto) Neut # (Auto) Lymph # (Auto) [place] # (Auto) Eos # (Auto) Baso # (Auto) Absolute Nucleated RBC Nucleated RBC % (auto) Toxic Granulation Platelet Estimate Giant Platelets Polychromasia Anisocytosis Pappenheimer Bodies PT 12.9 H INR 1.3 H Sample Site POC pH POC pCO2 POC pO2 POC HCO3 POC Total CO2 POC Base Excess POC ABG O2 Sat Jaxon Test O2 Delivery Device POC O2 Rate POC FiO2 PEEP Pressure Support Vent Sodium 138 Potassium 3.2 L D Chloride 102 Carbon Dioxide 29 Anion Gap 7.0 BUN 16 Creatinine 0.49 L Est Cr Clr Drug Dosing 118.1 Est GFR ( Amer) 128.0 Est GFR (Non-Af Amer) 110.5 BUN/Creatinine Ratio 31.5 H Glucose 137 H POC Glucose POC Glucose (other) Calcium 7.4 L Phosphorus 1.6 L D Magnesium 2.2 Total Bilirubin 3.1 H Direct Bilirubin 2.3 H AST 343 H ALT 189 H Alkaline Phosphatase 218 H Total Protein 5.4 L Albumin 2.5 L Procalcitonin 0.51 H 04/13/18 05:35 WBC RBC Hgb Hct MCV MCH MCHC RDW Std Deviation RDW Coeff of Chetan Plt Count Immature Gran % (Auto) Neut % (Auto) Lymph % (Auto) [place] % (Auto) Eos % (Auto) Baso % (Auto) Immature Gran # (Auto) Neut # (Auto) Lymph # (Auto) [place] # (Auto) Eos # (Auto) Baso # (Auto) Absolute Nucleated RBC Nucleated RBC % (auto) Toxic Granulation Platelet Estimate Giant Platelets Polychromasia Anisocytosis Pappenheimer Bodies PT INR Sample Site L Radial POC pH 7.49 H POC pCO2 35 POC pO2 113 H POC HCO3 27 H POC Total CO2 28 POC Base Excess 4.0 H POC ABG O2 Sat 99.0 H Jaxon Test Pass O2 Delivery Device Ventilator POC O2 Rate 8 POC FiO2 45 PEEP 10 Pressure Support Vent 10 Sodium Potassium Chloride Carbon Dioxide Anion Gap BUN Creatinine Est Cr Clr Drug Dosing Est GFR ( Amer) Est GFR (Non-Af Amer) BUN/Creatinine Ratio Glucose POC Glucose POC Glucose (other) Calcium Phosphorus Magnesium Total Bilirubin Direct Bilirubin AST ALT Alkaline Phosphatase Total Protein Albumin Procalcitonin Diagnostic Findings Echocardiogram performed today did not reveal any evidence of hepatopulmonary shunting. Overall LV function did appear improved versus echocardiogram performed 3 days ago. ECG Additional Comments: Sinus rhythm. (1) Cardiomyopathy Cardiomyopathy type: alcoholic Qualified Code(s): I42.6 - Alcoholic cardiomyopathy
[2018-04-13] MEDS: methylPREDNISolone 30 MG in SYRINGE 0 ML IV SCH ×2 (13:51→23:36)
[2018-04-13 15:18] LABS: 7-Aminoclonaz, Confirm NEGATIVE NG/ML (CUTOFF=25); Amobarbital, Urine Conf NEGATIVE NG/ML (CUTOFF=100); Hydro-Alp Ur, GC/MS NEGATIVE NG/ML (CUTOFF=25); Hydroxyethylflurazepam, Conf NEGATIVE NG/ML (CUTOFF=50); Hydroxytriazolam NEGATIVE NG/ML (CUTOFF=50); Lorazepam, Ur GC/MS NEGATIVE NG/ML (CUTOFF=50); Nordiazepam, Confirm NEGATIVE NG/ML (CUTOFF=50); Oxazepam Ur, GC/MS NEGATIVE NG/ML (CUTOFF=50); Phenobarbital, Urine 1888 NG/ML (CUTOFF=100); Secobarbital, Urine Conf NEGATIVE NG/ML (CUTOFF=100); Temazepam, Confirm 82 NG/ML (CUTOFF=50)
[2018-04-13] MEDS ORDERED: Nursing to Pharmacy Communication ONE (17:19)
[2018-04-13] MEDS ORDERED: INSULIN GLARGINE SOLOSTAR 100 UNITS/ML 3 ML PEN SC ONE (21:00)
--- NOTE | 2018-04-13 22:18 | Hospitalist Progress Note ---
Date of Service April 13, 2018 Assessment & Plan (1) Alcohol withdrawal: (1) Alcohol withdrawal: As noted below. (2) Alcoholic hepatitis: Patient has transaminases in the thousand range she is having increased alcohol intake of late. Some concern of alcoholic hepatitis. However her coagulation studies seem to be relatively intact. The patient in the intensive care unit and follow her LFTs she is stopped her alcohol use will watch her for alcohol withdrawal intensive care physician is chosen phenobarbital for this prevention Patient is alcohol associated thrombocytopenia. Discussed case with GI, unable to determine if patient has cirrhosis or alcohol hepatitis. Even if she has cirrhosis, unlikely to obtain transplant given that she continues to drink. She would need at least 6 months of abstinence from alcohol. LFTs improved to the 300s today. (3) Coffee ground emesis: Reported coffee-ground emesis while at [facility] H&H were 10 and 33 patient was on a Protonix drip Hemoglobin has remained stable. On PPI BID. (4) Hypokalemia: Patient is hypokalemic this is in the face of acidemia this may worsen we will continue to watch carefully. On 04/12 she was hypokalemic in AM.. Aggresively replaced (5) Acute kidney injury: By the outpatient labs patient's creatinine was 2.9 she was hydrated aggressively we will have her on maintenance fluids and recheck her labs frequently Resolved. (6) Suicide attempt: Patient is a 302 the warranted signed the patient on suicide watch and she will likely need to go to psychiatric care once she is stabilized medically (7) Acute metabolic encephalopathy: Heptaic vs alcoholic vs toxic. -Ammonia negative, currently having diarrhea on lactulose, goal 2-3 bowel movements per day Patient developed DT and became confused and agitated. patient required intubation for airway protection. She was extubated today. She will remain in the ICU for the time being. On thiamine (8) Delirium tremens: As noted above. Chronic pain -Chronic pain pump -Receiving in the pump 18 mg IV morphine daily and 2.52 mcg fentanyl daily (9) Acute respiratory failure with hypoxia: -Bilateral pleural effusion seen on CT scan Possible pneumonia. Started on cefepime. Procalcitonin is elevated. Patient does not have any evidence of pulmonary emboli Intubated as noted above. Managed by waiter[employer] t[employer] (10) Cardiomyopathy: Appreciate cardiac input. Patient has a history of reduced LV systolic function. LV function is worse when compared to previous echo. Etiology is unknown, it is likely related to chronic alcohol abuse. Currently patient developed pulmonary edema. She was aggressively hydrated due to volume depletion at the time of admission. If her clinical course improves, we can consider addition of oral beta blockade and YURI-I. (11) Demand ischemia: Probable NSTEMI (non-ST elevated myocardial infarction): Patient had mildly elevated trop. May be from demand ischemia. Cardio does not believe this to be an active ACS. Appreciate cardio input: Use of beta blockers for her withdrawal symptoms would also be beneficial from a cardiac perspective. Will monitor in ICU for another day. Patient will likely be transferred OUT IN AM IF SHE CONTINUES TO DO WELL. Subjective Patient was extubated this AM. Patient does not provide significant history as she is tired. Physical Exam Vital Signs (Past 24 Hours): Last Vital Signs Temp 36.8 C 04/13/18 16:30 Pulse 85 04/13/18 18:00 Resp 27 H 04/13/18 18:00 BP 101/69 04/13/18 18:00 Pulse Ox 97 04/13/18 18:00 Physical Exam: The patient is extubated and resting comfortably. Vital signs as documented. Head exam is unremarkable. normocephalic, atraumatic Neck is with jugular venous distension, thyromegaly, or lymphademopathy Lungs are diminished but no focal air loss Cardiac exam reveals RRR Abdominal exam reveals normal bowel sounds, no masses, no organomegaly Extremities are nonedematous and both pedal pulses are present Neurologic exam is limited as patient reports being tired and does not provide significant history. Skin is warm Dry
[2018-04-14] MEDS: CEFEPIME 2,000 MG in SYRINGE 0 ML IV SCH (03:58)
--- NOTE | 2018-04-14 07:22 | XRay Report ---
XR chest 1V portable CLINICAL HISTORY: Respiratory failure COMPARISON STUDY: April 13, 2018 FINDINGS: The endotracheal tube and nasogastric tubes have been removed. The right subclavian central venous catheter remains unchanged in position. The cardiac and mediastinal contours remain stable. T here is no failure. There are bibasilar airspace opacities, atelectatic versus infectious/inflammator y. Lung volumes are somewhat diminished. IMPRESSION: 1. Interval removal of the endotracheal tube and nasogastric tube 2. Persistent basilar opacities Electronically signed by: Yahir Valencia M.D. 04/14/2018 7:21 AM
--- NOTE | 2018-04-14 07:29 | Critical Care Progress Note ---
Date of Service April 14, 2018 Assessment & Plan (1) Alcohol withdrawal: Ms. gutierres is a 53-year-old female who was transferred for possible GI bleed. No current evidence of active bleeding. Patient became encephalopathic secondary to alcohol withdrawal versus liver failure. Required intubation, now extubated to room air. Hemodynamically stable and ready for downgrade to telemetry. Neuro: Acute encephalopathy -Patient became unresponsive, requiring intubation for airway protection -Metabolic versus toxic versus hepatic -Ammonia negative, currently having diarrhea on lactulose, goal 2-3 bowel movements per day Alcohol withdrawal: Hyperactive delirium -Delirium tremors -Unclear baseline alcohol consumption -AWSS scores and Ativan as needed Suicidal ideation Psychiatric illness: Major depressive disorder versus personality disorder -Patient under 302 currently undergoing medical stabilization -Unable to confirm psychiatric regimen or home dosing regimen. -Consult psych after patient stabilized. Chronic pain -Chronic pain pump -Receiving 18 mg IV morphine daily and 2.52 mcg fentanyl daily Resp: Acute hypoxic respiratory failure/ pneumonia- -CT abdomen and pelvis 04/12: Small bilateral pleural effusion, No evidence of pulmonary emboli, concern for pneumonia -Patient intubated after becoming unresponsive, ventilator settings have increased due to worsening hypoxia -04/12 bronched, samples pending in lab -04/13 extubated to BiPAP, now on room air -Started on cefepime, narrowed to Rocephin today -MRSA nasal negative on admission CV: Tachycardia-improved Elevated troponins -Adrenergic storms secondary to alcohol withdrawal versus non-ST elevation PR versus nutritional deficiency -Echocardiogram EF of 20-25% -Cardiology consult, appreciate their recs -We will continue with diuresis, repleting electrolytes, not currently requiring inotropic support Hypotensionlikely secondary to poor EF versus sepsis 03/18 PNA, dobutamine and levo fed weaned off, no longer requiring pressors Fluids/Renal: TYRONE resolved -Monitor oliguria and encourage oral fluids -Dial removed ID: Urine culture positive for staph aureus and Klebsiella resistant to ampicillin, continue Rocephin GI/Nutrition: Transaminitis -Unable to obtain Tylenol level, due to tests compromised due to Icterus -Received Mucomyst -Meld: Score improving -Patient would not be deemed a transplant candidate given his suicidal ideation and continued alcohol abuse -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 GI consult for common bile duct pathology Heme: Anemia Thrombocytopenia -Improved, continue to trend DVT prophylaxis: Chemical prophylaxis contraindicated, SCDs present Endocrine: ICU hyperglycemia protocol Vascular access: Central line discontinued, endurance Catheter Code Status: Full Supervising Physician Co-Signing Physician Notes Reason Critically Ill: 53-year-old female with acute encephalopathy and hyperactive delirium secondary to alcohol withdrawal PLAN: Neuro: Acute encephalopathy -Metabolic likely secondary to chronic disease state and pneumonic process -Ammonia less than 10, titrate lactulose to 2-3 bowel movements daily Alcohol withdrawal: Hyperactive delirium -Delirium tremens: Resolved -Patient has basically finished a phenobarbital call that was interrupted by continuous benzodiazepine sedation for mechanical ventilation -Unclear baseline alcohol consumption -Will reinstitute alcohol withdrawal severity scoring -Instead of 1 mg Ativan based off of alcohol withdrawal scale we are transitioning to 10 mg Librium given significant liver disease Suicidal ideation Psychiatric illness: Major depressive disorder versus personality disorder -Patient under 302 currently undergoing medical stabilization -Unable to confirm psychiatric regimen or home dosing regimen. Chronic pain -Chronic pain pump -Receiving 18 mg IV morphine daily and 2.52 mcg fentanyl daily -Patient requesting pain medication when I informed her her pain pump was actually running she stated her pain path have been turned off she was surprised that the pain pump had been evaluated and was in fact running. -At this time she is not describing to specific pain other than pain complex am not prescribing additional pain medication beyond what is supplied from the pain pump Resp: Acute hypoxic respiratory failure: Resolved -Initial hypoxic respiratory failure was thought to be from volume overload in the setting of cardiomyopathy -Patient now has a white count and changes consistent with pneumonic process will add cefepime for coverage no indication for vancomycin as MRSA swab was negative this does not appear to be necrotic pneumonia -Light normal carla -Extubated April 13, 2018 -Finish 7-day total treatment course of Rocephin CV: Tachycardia: Resolved Elevated troponins: Improved Alcoholic cardiomyopathy: Resolved -Initial EF 20-25 EF on repeat echo 40-45% -I believe we are outside the adrenergic storm of alcohol withdrawal -Echocardiogram: Reviewed: No evidence of hepatopulmonary syndrome at this time -Cardiology consult reviewed Fluids/Renal: TYRONE present on admission since resolved High gap metabolic acidosis: Resolved Hypokalemia: Significantly improved - will be able to supplement with daily multivitamin Hypophosphatemia: Significantly improved - will be able to supplement with daily multivitamin Hypomagnesemia: Resolved ID: Viral hepatitis and HIV both negative GI/Nutrition: Transaminitis: Significant improvement -Unable to check Tylenol level, test compromise due to Icterus -Empiric Mucomyst -Meld: 16: 04/10; meld 19: 04/11; meld 15: 04/12; meld 14: Improving -Patient would not be deemed a transplant candidate given his suicidal ideation and continued alcohol abuse -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 GI consult for common bile duct pathology Pancreatitis: Resolved -Tolerating regular diet Heme: Anemia: Improved at baseline Thrombocytopenia: Improving -Likely anemia and thrombocytopenia secondary to disease process DVT prophylaxis: Lovenox prophylaxis, SCDs present Endocrine: ICU hyperglycemia protocol -Subcutaneous insulin -Transition to 20 mg prednisone for the next 3 days then 10 mg for the next 3 days then 5 mg for the next 3 days then discontinue Vascular access: Endurance catheter placed -Discontinue subclavian line today Code Status: Full Patient has reached medical stability will engage mental health to proceed with 302 Patient is stable for downgrade out of ICU. She has not had a dysrhythmia she would be stable for medicine floor with sitter secondary to suicidal ideation Patient was discussed in multidisciplinary rounds Subjective Ms. gutierres is a 53-year-old female who was transferred for possible GI bleed. No current evidence of active bleeding. Patient became encephalopathic secondary to alcohol withdrawal versus liver failure. Required intubation, now extubated to room air. Now stable for down grade to telemetry. Review of Systems All systems reviewed & are unremarkable except as noted in HPI & below Physical Exam Vital Signs (Past 24 Hours): Last Vital Signs Temp 37.9 C H 04/14/18 04:00 Pulse 83 04/14/18 06:00 Resp 23 04/14/18 06:00 BP 100/74 04/14/18 06:00 Pulse Ox 95 04/14/18 06:00 Constitutional: WD/WN, vitals as above + frail appearing and comfortable Eyes: PERRL, conjunctivae normal, anicteric sclerae ENMT: external ear and nose normal, oropharynx normal Neck: trachea midline, no thyromegaly Respiratory: Lungs coarse crackles bilaterally in all lobes, symmetrical chest wall movement, nonlabored breathing Cardiovascular: S1-S2 no murmur, good peripheral perfusion, radial pulses +2 bilaterally pedal pulses +2 bilaterally, no edema, no JVD Gastrointestinal (Abdomen): Abdomen firm and tender in right upper quadrant with palpable and firm liver, abdomen soft flat nontender and other 3 quadrants, normoactive bowel sounds in all 4 quadrants Musculoskeletal: Generalized weakness with symmetrical strength against resi stance in all 4 extremities Skin: No rashes, skin intact Neurologic: Alert and oriented x3, symmetrical and equal strengths bilaterally, PERRLA Psychiatric: Patient calm and cooperative Genitourinary: Dial removed, monitor for urine output Results & Data Laboratory Results Laboratory Results - last 24 hr 04/09/18 04/13/18 04/13/18 14:45 11:36 16:26 WBC RBC Hgb Hct MCV MCH MCHC RDW Std Deviation RDW Coeff of Chetan Plt Count Immature Gran % (Auto) Neut % (Auto) Lymph % (Auto) [place] % (Auto) Eos % (Auto) Baso % (Auto) Immature Gran # (Auto) Neut # (Auto) Lymph # (Auto) [place] # (Auto) Eos # (Auto) Baso # (Auto) Absolute Nucleated RBC Nucleated RBC % (auto) Toxic Granulation Platelet Estimate Anisocytosis Sodium Potassium Chloride Carbon Dioxide Anion Gap BUN Creatinine Est Cr Clr Drug Dosing Est GFR ( Amer) Est GFR (Non-Af Amer) BUN/Creatinine Ratio Glucose POC Glucose 99 120 H Calcium Phosphorus Magnesium Urine Butalbital NEGATIVE Urine Amobarbital NEGATIVE Urine Pentobarbital NEGATIVE Urine Phenobarbital 1888 A Urine Secobarbital NEGATIVE U OH-Alprazolam Confrm NEGATIVE 7-Amino Clonazepam NEGATIVE Ur Nordiazepam Confirm NEGATIVE U OH-ethylflurazepam NEGATIVE U Lorazepam Cnf GC/MS NEGATIVE U Oxazepam Confm GC/MS NEGATIVE Ur Temazepam Confirm 82 A U OH-Triazolam Confirm NEGATIVE U OH-Midazolam Confirm NEGATIVE 04/13/18 04/14/18 04/14/18 21:35 07:40 07:40 WBC 7.30 RBC 3.42 L Hgb 10.4 L Hct 31.9 L MCV 93.3 MCH 30.4 MCHC 32.6 RDW Std Deviation 66.9 H RDW Coeff of Chetan 19.6 H Plt Count 76 L D Immature Gran % (Auto) 0.7 Neut % (Auto) 70.8 Lymph % (Auto) 9.0 [place] % (Auto) 19.3 Eos % (Auto) 0.1 Baso % (Auto) 0.1 Immature Gran # (Auto) 0.05 H Neut # (Auto) 5.16 Lymph # (Auto) 0.66 L [place] # (Auto) 1.41 H Eos # (Auto) 0.01 Baso # (Auto) 0.01 Absolute Nucleated RBC 0.20 H Nucleated RBC % (auto) 2.8 Toxic Granulation 1+ Platelet Estimate Decreased Anisocytosis Present Sodium 135 L Potassium 3.2 L Chloride 102 Carbon Dioxide 26 Anion Gap 7.0 BUN 15 Creatinine 0.37 L Est Cr Clr Drug Dosing 156.4 Est GFR ( Amer) 140.4 Est GFR (Non-Af Amer) 121.2 BUN/Creatinine Ratio 40.3 H Glucose 111 H POC Glucose 186 H Calcium 7.4 L Phosphorus 0.9 L* Magnesium 1.9 Urine Butalbital Urine Amobarbital Urine Pentobarbital Urine Phenobarbital Urine Secobarbital U OH-Alprazolam Confrm 7-Amino Clonazepam Ur Nordiazepam Confirm U OH-ethylflurazepam U Lorazepam Cnf GC/MS U Oxazepam Confm GC/MS Ur Temazepam Confirm U OH-Triazolam Confirm U OH-Midazolam Confirm 04/14/18 07:48 WBC RBC Hgb Hct MCV MCH MCHC RDW Std Deviation RDW Coeff of Chetan Plt Count Immature Gran % (Auto) Neut % (Auto) Lymph % (Auto) [place] % (Auto) Eos % (Auto) Baso % (Auto) Immature Gran # (Auto) Neut # (Auto) Lymph # (Auto) [place] # (Auto) Eos # (Auto) Baso # (Auto) Absolute Nucleated RBC Nucleated RBC % (auto) Toxic Granulation Platelet Estimate Anisocytosis Sodium Potassium Chloride Carbon Dioxide Anion Gap BUN Creatinine Est Cr Clr Drug Dosing Est GFR ( Amer) Est GFR (Non-Af Amer) BUN/Creatinine Ratio Glucose POC Glucose 116 H Calcium Phosphorus Magnesium Urine Butalbital Urine Amobarbital Urine Pentobarbital Urine Phenobarbital Urine Secobarbital U OH-Alprazolam Confrm 7-Amino Clonazepam Ur Nordiazepam Confirm U OH-ethylflurazepam U Lorazepam Cnf GC/MS U Oxazepam Confm GC/MS Ur Temazepam Confirm U OH-Triazolam Confirm U OH-Midazolam Confirm Medications Administered Home Medications Folic Acid 1 mg PO QD #0 06/01/17 [History] MIRTAZAPINE (REMERON) 15 mg PO HS #0 06/01/17 [History] MISOPROSTOL (CYTOTEC) 100 mg PO QID #0 04/18/18 [History] Pantoprazole (Pantoprazole Sodium) 40 mg PO BID #0 06/01/17 [History] SUCRALFATE (CARAFATE) 10 ml PO QID PRN 30 Days #1200 ml 06/01/17 [History] Clindamycin HCl 2 cap PO Q6 #0 10/02/17 [History] Fentanyl 75 mcg TRANSDERMAL Q72H #0 10/02/17 [History] Hydrocodone/Acetaminophen 7.5MG/325MG ([place] 7.5MG/325MG) 1 tab PO Q6 PRN #0 tab 10/02/17 [History] Hydroxyzine HCl 25 mg PO Q6 PRN #0 10/02/17 [History] Active Medications Chlordiazepoxide HCl (Librium) 10 mg PO ONE PRN; Protocol PRN Reason: EtoH Withdrawal AWSS 6-10 Dextrose (Dextrose 50%) 25 - 50 ml IV UD PRN; Protocol PRN Reason: Hypoglycemia Protocol Stop: 05/11/18 01:08 Enoxaparin Sodium (Lovenox) 40 mg SQ DAILY [facility] Stop: 05/12/18 10:59 Last Admin: 04/14/18 08:30 Dose: 40 mg Documented by: Folic Acid (Folvite) 1 mg PO DAILY MICHELLE Stop: 05/14/18 08:59 Last Admin: 04/14/18 09:07 Dose: Not Given Documented by: Glucagon (Glucagen) 1 mg IM UD PRN; Protocol PRN Reason: Hypoglycemia Protocol Stop: 05/11/18 01:08 Glucose (Glucose 40%) 15 - 30 gm PO UD PRN; Protocol PRN Reason: Hypoglycemia Protocol Stop: 05/11/18 01:08 Glucose (Dex4 Glucose) 4 - 8 tabs PO UD PRN; Protocol PRN Reason: Hypoglycemia Protocol Stop: 05/11/18 01:08 Heparin Sodium (Beef Lung) (Heparin Sod 10 Unit/Ml Flush) 5 ml FLUSH PRN PRN PRN Reason: Flush Stop: 05/10/18 01:06 Ceftriaxone Sodium 1,000 mg/ (Dextrose) 50 mls @ 100 mls/hr IV DAILY@1200 MICHELLE Stop: 04/18/18 12:01 Insulin Aspart (Novolog Flexpen) 0 units SC ACHS MICHELLE; Protocol Stop: 05/13/18 20:59 Last Admin: 04/14/18 08:27 Dose: Not Given Documented by: Ioversol (Optiray 320 125ml) 118 ml IV ONCE PRN PRN Reason: Interaction Checking Stop: 04/16/18 09:13 Last Admin: 04/12/18 09:15 Dose: 1 ml Documented by: Lactulose (Chronulac) 30 gm PO UD MICHELLE Stop: 05/11/18 11:29 Methylcellulose (Citrucel) 19 gm PO BID MICHELLE Stop: 05/14/18 09:29 Miscellaneous (Carbohydrates For Hypoglycemia) 15 - 30 gm PO UD PRN PRN Reason: Hypoglycemia Treatment Stop: 05/11/18 01:08 Miscellaneous Information (Consult Glycemic Management Pharmacy) 1 ea N/A UD PRN PRN Reason: Consult Stop: 05/10/18 06:51 Pantoprazole Sodium (Protonix) 40 mg PO BID MICHELLE Stop: 05/14/18 08:59 Last Admin: 04/14/18 09:07 Dose: Not Given Documented by: Potassium Phosphate (Phospha 250 Neutral 155-852-130 Mg) 2 tab PO BID MICHELLE Stop: 04/15/18 08:59 Last Admin: 04/14/18 08:33 Dose: 2 tab Documented by: Prednisone (Prednisone) 20 mg PO DAILY [facility]; Taper Stop: 04/23/18 08:59 Last Admin: 04/14/18 09:08 Dose: 20 mg Documented by: Thiamine HCl (Vitamin B-1) 100 mg PO DAILY MICHELLE Stop: 05/14/18 08:59 Last Admin: 04/14/18 09:07 Dose: Not Given Documented by:
[2018-04-14 08:10] LABS: Mean Corpuscular Hgb Conc 32.6 g/dL (32-36); Nucleated RBC % (auto) 2.8 %
[2018-04-14] MEDS: INSULIN ASPART 100 UNITS/ML 3 ML PEN SC SCH ×4 (08:27→21:34)
[2018-04-14] MEDS: THIAMINE HCL 100 MG in SYRINGE 9 ML IV SCH (08:29)
[2018-04-14] MEDS: FOLIC ACID 1 MG in SYRINGE 9.8 ML IV SCH (08:29)
[2018-04-14] MEDS: PANTOprazole 40 MG in SYRINGE 0 ML IV SCH (08:29)
[2018-04-14] MEDS: ENOXAPARIN INJ 40 MG/0.4 ML SYR SQ SCH (08:30)
[2018-04-14] MEDS: POT PHOSPHATE MONOBASIC W/ SOD TAB PO SCH ×2 (08:33→21:34)
[2018-04-14 08:39] LABS: Anisocytosis Present; Basophils # (auto) 0.01 K/uL (0-0.2); Basophils % (auto) 0.1 %; Eosinophils # (auto) 0.01 K/uL (0-0.5); Eosinophils % (auto) 0.1 %; Hematocrit (blood only) 31.9 % (37-47); Hemoglobin 10.4 g/dL (12.0-16.0); Immature Granulocytes # (auto) 0.05 K/uL (0.00-0.02); Immature Granulocytes % (auto) 0.7 %; Lymphocytes # (auto) 0.66 K/uL (1.2-3.4); Mean Corpuscular Volume 93.3 fL (80-100); Monocytes # (auto) 1.41 K/uL (0.11-0.59); Monocytes % (auto) 19.3 %; Neutrophils # (auto) 5.16 K/uL (1.4-6.5); Neutrophils % (auto) 70.8 %; Platelet Count 76 K/uL (130-400); Platelet Estimate Decreased (Normal); RDW Coefficient of Variation 19.6 % (11.5-14.5); RDW Standard Deviation 66.9 fL (36.4-46.3); Red Blood Count 3.42 M/uL (4.2-5.4); Toxic Granulation 1+
[2018-04-14 08:40] LABS: BUN Creatinine Ratio 40.3 (10-20); Calcium 7.4 mg/dl (8.5-10.1); Creatinine Clr Calc Pharmacy 156.4 ml/min; Est GFR (African American) 140.4; Est GFR (Non-African American) 121.2; Magnesium 1.9 mg/dl (1.8-2.4); Potassium 3.2 mmol/L (3.5-5.1)
[2018-04-14 08:55] LABS: Phosphorus 0.9 mg/dl (2.5-4.9)
[2018-04-14] MEDS: FOLIC ACID 1 MG TAB PO SCH (09:07)
[2018-04-14] MEDS: PANTOprazole 40 MG TAB PO SCH ×2 (09:07→21:34)
[2018-04-14] MEDS: THIAMINE HCL 100 MG TAB PO SCH (09:07)
[2018-04-14] MEDS: predniSONE 10 MG TABLET PO SCH (09:08)
[2018-04-14] MEDS: METHYLCELLULOSE POWDER 454 GM JAR PO SCH ×2 (11:15→22:23)
--- NOTE | 2018-04-14 12:34 | Gastroenterology Progress Note ---
Date of Service April 14, 2018 Assessment & Plan (1) Alcoholic hepatitis: Plan for OP hepatology f/u for ETOH hepatitis/pancreatitis after rehab at which time EGD for anemia can be considered. Supervising Physician Co-Signing Physician Notes I have seen and examined the patient and discussed the management with ELANA Anne. 53 yo fm with a history of being transferred for severe etoh hepatitis/pancreatitis. She has been in the icu this whole week, intubated, now extubated. Looks alert this morning, no acute complaints, sitter at bedside. Benign abdominal exam. Labs improving regarding her lft's and INR. Persistent low phos. Cxray with bibasilar opacities. Remains on prednisone, empiric ceftriaxone, PPI twice daily. Ideally, she should be discharged on PPI twice daily and can complete a 28 day course of steroids from a GI perspective even upon discharge. Outpatient EGD would be recommended after she has fully gone through her psychological evaluation. GI will sign off. Subjective Ms. Saldana is awake, alert, oriented and conversational. When asked, she mentions some upper abdomen discomfort but appears comfortable and is eating a regular consistency diet Physical Exam Vital Signs (Past 24 Hours): Last Vital Signs Temp 36.8 C 04/14/18 08:00 Pulse 93 H 04/14/18 10:00 Resp 20 04/14/18 10:00 BP 108/71 04/14/18 09:00 Pulse Ox 91 04/14/18 10:00 Constitutional: well developed, + ill appearing and cooperative; no acute distress ENMT: external ear and nose normal, oropharynx normal Neck: trachea midline, no thyromegaly Respiratory: no respiratory distress, no retractions, does not use accessory muscles and no cough Auscultation: no crackles, no rales and no wheezes Cardiovascular: Rate/Rhythm: regular rate, regular rhythm and + tachycardic Heart Sounds: normal S1 and normal S2; no murmur Vessels: + JVD Extremities: + edema (hands, slight lower leg edema) Gastrointestinal (Abdomen): Inspection/Auscultation: abdomen not distended Percussion/Palpation: + abdomen tender (mild epigastric tenderness) and abdomen soft; no guarding Skin: no rashes, warm and dry no jaundice Neurologic: PERRL, EOMI, accommodation nl, no face palsy, no dysarthria Motor/Sensory: no tremor Psychiatric: Orientation: alert and oriented x 3 Eye Contact: good eye contact Motor Behavior: n tremor affect slightly dull Lymphatic: no cervical or axillary lymphadenopathy
--- NOTE | 2018-04-14 12:45 | Pharmacy Report ---
Pharmacy Glycemic Short Note 2 - Date of Service April 14, 2018 - Glycemic Short BSG Results (Last 24 hours): 04/13/18 04/13/18 04/14/18 16:26 21:35 07:40 Glucose 111 H POC Glucose 120 H 186 H 04/14/18 04/14/18 07:48 11:19 Glucose POC Glucose 116 H 92 OUTPATIENT ANTIDIABETIC REGIMEN: * N/A * Al1c 4.8% ASSESSMENT: * Patient received 7 units of insulin yesterday, BSGs ranging from 99-186 * Steroids transitioned to prednisone 20 mg with taper every 3 days * BSGs today 116,92- expect patient with less needs now that steroids have been reduced * Hold lantus/carb ratio for now, continue correctional 04/13 * Patient's received 20 units of basal insulin yesterday, BSGs between 142-174 * Patient BSG this morning 172, tube feeds started at 10ml/hr * Hypotensive, started on levophed, dobutamine, continues to be intubated * Slightly tighten correction factor 04/12 * Patient continues to be intubated, transitioned off of insulin drip this m orning ~0130 * Lantus 10 units x 1 this morning, CF/CR weight based stress of 2 * BSGs have been within goal range 142/148 * Continues on methylprednisolone BID and ventilation PLAN FOR INPATIENT GLYCEMIC CONTROL: * Hold outpatient oral diabetes medications * Bolus insulin * NovoLog per scale ACHS or Q6hrs while NPO * Goal Range: Low 140 mg/dL - High 180 mg/dL * Correction Factor: 35 mg/dL/unit PLAN FOR DISCHARGE: * Do not anticipate outpatient need
[2018-04-14] MEDS: cefTRIAXone SODIUM 1,000 MG in DEXTROSE 5% 50 ML IV SCH (12:59)
--- NOTE | 2018-04-14 15:08 | Communication Note ---
Date of Service: April 14, 2018 This 53-year-old woman has been diagnosed with alcohol dependence; narcotic, sedative hypnotic and cannabis abuse; pain disorder, depression, factitious dis order, and anxiety NOS. She was apparently taken to [facility] ER yesterday after she was found unresponsive at home, clutching a bottle of vodka. The ER note on the outside hospital from last night indicates that she presented after drinking alcohol for 3-4 days without any food or water, was not taking medications, and was found unconscious. She was lethargic and a poor historian, and reported abdominal pain. A subclavian central line was inserted as they were unable to obtain peripheral access. Lab studies indicated leukopenia, thrombocytopenia, hyponatremia, hypokalemia, hyperammonemia, AST 1142, ALT 222,, amylase 275, and lipase of over 17,000. Creatinine was elevated at 2.95. Blood alcohol level was 179. An abdominal and pelvic CT showed pancreatitis. EKG was normal sinus rhythm, and chest x-ray was normal. She had coffee-ground emesis in the ER and received IV Protonix. She received IV fluids and lactulose, Zosyn, vancomycin, fentanyl, and Compazine and blood cultures were drawn. She was diagnosed with sepsis and transferred to [facility] this morning, where she is admitted to the ICU. There is an active 302 warrant in her chart, petitioned by Joao gutierres, which states the patient stopped taking her medications, said she was going to drink herself to and did not want to live. The petitioner's brother went to the patient's home and found her unconscious in the position holding a bottle of vodka. When initially evaluated by psychiatry on 04/09/18 the patient was very difficult to understand, at times mumbling incoherently. She was described as confused and was picking at her blankets. However, she was able to say that she is in [place] and that she is hospitalized for an alcohol overdose. She reportedly stated, "I was a bad girl, my friend , I drank for 2 days, got myself sick." She also denied that she was suicidal. The patient also said that she lives alone in [place], and has no supports. She also denied any mental health history (although she has been admitted here before and has multiple psychiatric diagnoses), and denied any current needs for mental health treatment. The patient was noted to be drug seeking and was asking for fentanyl, stating "they gave it to me yesterday and it made me feel good." She admits that she went on an alcohol binge the last few days, and said that prior to that she had not consumed alcohol since she was a teenager. She then admited to being hospitalized in the recent past for alcohol withdrawal. Identified problems included: 1. Alcoholism, all her presentation diagnosis are related to alcohol. 2. Alcoholic hepatitis, with elevated transaminase. 3. Alcoholic pancreatitis, with elevated lipase. 4. Rhabdomyolysis due to immobility after binge drinking. 5. Acute kidney insufficiency due to mild case of rhabdomyolysis and dehydration due to alcoholism. 6. Elevation in troponin in the face of hypotension and dehydration requiring 7 L of IV fluid. 7. Although the patient might have had liver cirrhosis, I would be cautious with IV fluid administered to her. 8. Alcohol related gastritis, hematocrit has been stable at 33 after aggressive hydration. 9. 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 10. Depression with suicidal ideation. I reevaluated the patient today at her bedside. Today, the patient was alert, fully oriented, and cooperative. As in the past, the patient tended to minimize her alcohol/drug use history. At one point, she referred herself as a "teatotaler" until fairly recently, but when I explained that that means that she did not drink at all, she smiled and said, "oh. Yes, I drink, but really more socially. I just got carried away recently and went on a binge." The pat ient attributed her binge to recent losses. She notes that her best friend had been killed several weeks earlier in an automobile accident and, around the same time, her oldest sibling, a brother, suddenly of a myocardial infarction. She acknowledges that she uses alcohol as a coping mechanism and began drinking heavily. At first, she was reluctant to quantify the amount, but later april ed that her boyfriend, who she describes as also alcoholic, was bringing her two "half a gallon" bottles of vodka, and helping her drink it. Within that context, she estimated that she was probably drinking about 1/2 gallon or more of vodka a day for several days. She notes that she remembers very little of what happened prior to her admission, other than she was aware that she went to an emergency room in [place] and was transferred to [facility]. She also tells me that the first several days of her hospitalization here are "kind of a blur." We discussed the fact that she reportedly had told people that her plan was to "drink herself to ," and the patient says that she has no recollection of saying that, but points out that, in fact, she was drunk at the time. She notes that she she is not suicidal and is having no thoughts of self-harm. The patient also reports that she had not been feeling depressed recently, but has been greatly saddened by the losses identified above (best friend and brother). The patient tells me that she recognizes that she cannot use alcohol as a coping strategy and tells me that she is frightened by the fact that her drinking got "so out of control." With time, the patient became more forthcoming about her drinking history and acknowledges a long- standing struggle with alcohol dependence, which she claims waxes and wanes over time. Although the patient had initially said that she has no support system, she identifies her surviving siblings as well as her children as sources of support, and she tells me that 1 of her sons visits or checks in on her "almost daily." The patient reportedly has a history of factitious disorder, and when I did a review of systems with her she told me that she had been diagnosed with multiple sclerosis in the past, but that it was in remission do, she believes, to the use of an experimental drug that she can no longer afford but "made things better." (Multiple sclerosis is not listed as a current diagnosis.) The record also indicates that the patient has a history of abuse of other substances besides alcohol, including opioids, and this is fairly well documented. However, the patient reports that while she "used to" have a problem with certain drugs, these problems have resolved. On mental status examination today the patient is alert, fully oriented to person, place, time and situation. She is pleasant and cooperative. She describes her mood as ""okay. I am tired, it is hard to sleep in the hospital sometimes." She explains that she still grieves the loss of her brother and a best friend, but denies that she feels depressed. The patient's affect is generally euthymic. She smiles and chuckles appropriately several times during the interview and engages appropriately. Patient's speech is delivered at a normal rate and volume. She speaks spontaneously and in full sentences. Her thought processes include tight associations and she is goal oriented. Her thought content is devoid of any delusional features. The patient does tend to minimize and rationalize her alcohol/drug use history. She adamantly denies having any suicidal thoughts and, as above, when she was advised that she had supposedly said that she planned to drink herself "to ," the patient insisted that she did not recall saying that, but also pointed out that she was "pretty drunk almost all the time." She also reports that she has no homicidal thoughts. The patient's judgment is somewhat limited and her insight is also limited. She does, however, say that she realizes that she cannot consume alcohol in any amounts and says that she is very eager to enter. We discussed participation in self-help groups, such as Alcoholics Anonymous. She also is eager to resume individual psychotherapy as part of her effort to avoid an alcohol relapse. Finally, the patient tells me that she realizes that 1 of her "triggers" for drinking is the fact that her boyfriend is also an alcoholic. She indicated that she recognizes that if she continues in the relationship, at least at the present time. She does express some ambivalence in this regard, and cites the fact that she was told that her boyfriend sat at her side during the initial portion of the hospitalization. However, she tells me that she recognizes that her own safety is more important in the relationship and rather than "end the relationship," she will plan to "suspend the relationship" as she attempts recover from alcohol dependence. Recommendation: I do not believe the patient meets criteria for involuntary psychiatric hospitalization. There is certainly reason to question certain aspects of the patient for veracity, and she certainly minimizes the seriousness of her alcohol abuse. However, on mental status examination she is not found to be depressed, psychotic, or a danger to herself or others at the present timeapart from the risk of alcohol relapse. Ideally, when cleared medically, the the patient will be referred for outpatient treatment for alcohol abuse and, currently, grief associated with loss. I am not recommending psychiatric medications at this time. The important point is that the patient must not consume alcohol or use other drugs of abuse, and all efforts should be focused on this goal. I have discontinued suicide precautions with one-to-one observation as no longer being necessary.
[2018-04-14] MEDS: ONDANSETRON INJ 2 MG/ML 2 ML VIAL IV PRN (21:24)
[2018-04-14] MEDS: ZOLPIDEM TARTRATE 5 MG TAB PO PRN (22:24)
[2018-04-15] MEDS: INSULIN ASPART 100 UNITS/ML 3 ML PEN SC SCH ×4 (08:21→22:15)
[2018-04-15] MEDS: METHYLCELLULOSE POWDER 454 GM JAR PO SCH ×2 (08:30→21:06)
[2018-04-15] MEDS: predniSONE 10 MG TABLET PO SCH (08:31)
[2018-04-15] MEDS: ENOXAPARIN INJ 40 MG/0.4 ML SYR SQ SCH (08:31)
[2018-04-15] MEDS: THIAMINE HCL 100 MG TAB PO SCH (08:31)
[2018-04-15] MEDS: FOLIC ACID 1 MG TAB PO SCH (08:31)
[2018-04-15] MEDS: PANTOprazole 40 MG TAB PO SCH ×2 (08:31→21:06)
[2018-04-15] MEDS: ONDANSETRON INJ 2 MG/ML 2 ML VIAL IV PRN ×2 (08:55→15:29)
--- NOTE | 2018-04-15 09:34 | Cardiology Progress Note ---
Date of Service April 15, 2018 Assessment & Plan (1) Cardiomyopathy: Patient appears to be well compensated overall. The likely etiology of her cardiomyopathy is alcohol toxicity. However, she did have mildly elevated biomarkers at the time of admission. During our conversation today she did report some exertional chest pain. She states that occasionally with ambulation she will have chest pains. Usually discontinue where activity resolved the symptoms. She is very sedentary overall is limited by discomfort on the right side of her body. She did report an element of dyspnea with activity as well. Whether this is related to poor LV function and an element of heart failure or simply deconditioning is unclear. Ideally she would be on both beta-blockade and Naveen inhibition. Her blood pressure is relatively low. I would advocate initiation of metoprolol tartrate 12.5 mg twice daily for both his antianginal effect and improvement of her cardiomyopathy. This can be titrated upwards and eventually converted to metoprolol succinate according to her hemodynamics. If she continues to have reasonable blood pressures a small dose of Naveen inhibition could also be initiated. Currently she appears to be euvolemic. We will need to monitor her respiratory status closely. Perhaps daily weights at home would be useful in determining whether any daily or p.r.n. diuretic is necessary. Present on Admission?: Yes (2) NSTEMI (non-ST elevated myocardial infarction): She did have some mildly elevated biomarkers at the time of admission. I think this is most likely related to her metabolic derangements. However, she did report some symptoms that could be anginal in nature today. I still do not believe she is a good candidate for any form of percutaneous intervention given her poor compliance with medical therapy and social issues. Her platelet count is improving. I think medical therapy should be tried 1st in any regard. Initiation of beta-blockade as above might be helpful. For persistent symptoms of exertional chest pain we could also add nitrates. I would leave any form of angiography or percutaneous intervention as a last resort for her symptoms. Perhaps if she demonstrates better compliance with medical therapy and appropriate follow-up in the outpatient setting could consider stress testing or invasive testing. I will be away from the hospital for the next week. The pediatric orthodontist electrician second Dr. Maria would be available for any questions regarding this kind woman's care. Thank you Subjective This morning the patient claims to be feeling much better. She has had limited ambulation with a walker. She has a reasonable appetite. She denies pain currently. She denies any breathing difficulty currently. Physical Exam Vital Signs (Past 24 Hours): Last Vital Signs Temp 36.8 C 04/15/18 07:30 Pulse 92 H 04/15/18 07:30 Resp 18 04/15/18 07:30 BP 116/87 04/15/18 07:30 Pulse Ox 96 04/15/18 07:30 Physical Exam: She is alert and oriented x3. Mood affect appear normal. She answered all questions appropriately. HEENT: Sclerae are anicteric. Pupils are equal and reactive to light and accommodation. Extraocular movements were intact. Neuro: Cranial nerves intact Lungs: Lungs are clear to auscultation bilaterally. There are no rales wheezes or rhonchi. She has normal respiratory effort without use of accessory muscles. There is normal pulmonary excursion. Cardiac: The rhythm was regular. S1 and S2 were normal. There are no murmurs on examination. The PMI was not markedly displaced on palpation. Extremities: Patient has bilateral radial pulses that are equal in intensity. There is no evidence cyanosis or clubbing. Skin: There are no rashes noted on examination today. Results & Data Laboratory Results Abnormal Lab Results 04/14/18 04/14/18 04/14/18 11:19 16:26 20:28 POC Glucose 92 98 91 04/15/18 07:45 POC Glucose 81 (1) Cardiomyopathy Cardiomyopathy type: alcoholic Qualified Code(s): I42.6 - Alcoholic cardiomyopathy
--- NOTE | 2018-04-15 10:43 | Hospitalist Progress Note ---
Date of Service April 14, 2018 Assessment & Plan (1) Alcohol withdrawal: As noted below. (2) Alcoholic hepatitis: Patient has transaminases in the thousand range she is having increased alcohol intake of late. Some concern of alcoholic hepatitis. However her coagulation studies seem to be relatively intact. Patient is alcohol associated thrombocytopenia. Discussed case with GI, unable to determine if patient has cirrhosis or alcohol hepatitis. Even if she has cirrhosis, unlikely to obtain transplant given that she continues to drink. She would need at least 6 months of abstinence from alcohol. LFTs improved . (3) Coffee ground emesis: Reported coffee-ground emesis while at [facility] H&H were 10 and 33 patient was on a Protonix drip Hemoglobin has remained stable. On PPI BID. (4) Hypokalemia: Patient is hypokalemic this is in the face of acidemia this may worsen we will continue to watch carefully. On 04/14 she was hypokalemic in AM.. (5) Acute kidney injury: By the outpatient labs patient's creatinine was 2.9 she was hydrated aggre ssively we will have her on maintenance fluids and recheck her labs frequently Resolved. (6) Suicide attempt: Patient is a 302 the warranted signed the patient on suicide watch and she will likely need to go to psychiatric care once she is stabilized medically. Awaiting input by psych. If not able to 302, will transfer to 454. (7) Acute metabolic encephalopathy: Heptaic vs alcoholic vs toxic. -Ammonia negative, currently having diarrhea on lactulose, goal 2-3 bowel movements per day Patient developed DT and became confused and agitated. patient required intubation for airway protection. She was extubated on 04/13. On thiamine (8) Delirium tremens: As noted above. Chronic pain -Chronic pain pump -Receiving in the pump 18 mg IV morphine daily and 2.52 mcg fentanyl daily (9) Acute respiratory failure with hypoxia: -Bilateral pleural effusion seen on CT scan Possible pneumonia. Started on cefepime. Procalcitonin is elevated. Patient does not have any evidence of pulmonary emboli Intubated as noted above. Managed by fur glazer (10) Cardiomyopathy: Appreciate cardiac input. Patient has a history of reduced LV systolic function. LV function is worse when compared to previous echo. Etiology is unknown, it is likely related to chronic alcohol abuse. Currently patient developed pulmonary edema. She was aggressively hydrated due to volume depletion at the time of admission. If her clinical course improves, we can consider addition of oral beta blockade and YURI-I. (11) Demand ischemia: Probable NSTEMI (non-ST elevated myocardial infarction): Patient had mildly elevated trop. May be from demand ischemia. Cardio does not believe this to be an active ACS. Appreciate cardio input: Use of beta blockers for her withdrawal symptoms would also be beneficial from a cardiac perspective. spent 25 minutes in management of patient. Subjective Patient currently in ICU. Patient has been extubated and doing well. She currently has no complaints. Awaiting input from psych in regards to 302. Physical Exam Vital Signs (Past 24 Hours): Last Vital Signs Temp 36.8 C 04/14/18 08:00 Pulse 92 H 04/14/18 08:00 Resp 18 04/14/18 08:00 BP 116/87 04/14/18 08:00 Pulse Ox 96 04/14/18 08:00 Physical Exam: The patient is resting comfortably. She is no acute distress. Vital signs as documented. Head exam is unremarkable. normocephalic, atraumatic Neck is with jugular venous distension, thyromegaly, or lymphademopathy Lungs are diminished but no focal air loss Cardiac exam reveals RRR Abdominal exam reveals normal bowel sounds, no masses, no organomegaly Extremities are nonedematous and both pedal pulses are present Skin is warm Dry
[2018-04-15 11:45] LABS: BUN Creatinine Ratio 26.3 (10-20); Calcium 7.6 mg/dl (8.5-10.1); Creatinine Clr Calc Pharmacy 170.2 ml/min; Est GFR (African American) 144.4; Est GFR (Non-African American) 124.6; Magnesium 1.7 mg/dl (1.8-2.4); Phosphorus 1.7 mg/dl (2.5-4.9); Potassium 2.8 mmol/L (3.5-5.1)
[2018-04-15 12:00] LABS: Anisocytosis Present; Basophils # (auto) 0.01 K/uL (0-0.2); Basophils % (auto) 0.1 %; Eosinophils # (auto) 0.03 K/uL (0-0.5); Eosinophils % (auto) 0.4 %; Hematocrit (blood only) 30.8 % (37-47); Hemoglobin 10.3 g/dL (12.0-16.0); Immature Granulocytes # (auto) 0.05 K/uL (0.00-0.02); Immature Granulocytes % (auto) 0.7 %; Lymphocytes # (auto) 0.42 K/uL (1.2-3.4); Lymphocytes % (auto) 5.5 %; Mean Corpuscular Hgb Conc 33.4 g/dL (32-36); Mean Corpuscular Volume 94.2 fL (80-100); Monocytes # (auto) 0.92 K/uL (0.11-0.59); Monocytes % (auto) 12.1 %; Neutrophils % (auto) 81.2 %; Platelet Count 95 K/uL (130-400); RDW Standard Deviation 64.5 fL (36.4-46.3); Red Blood Count 3.27 M/uL (4.2-5.4); Toxic Granulation 1+; White Blood Count 7.63 K/uL (4.8-10.8)
[2018-04-15] MEDS: cefTRIAXone SODIUM 1,000 MG in DEXTROSE 5% 50 ML IV SCH (12:07)
[2018-04-15] MEDS: METOPROLOL TARTRATE 25 MG TAB PO SCH ×2 (12:33→21:05)
[2018-04-15] MEDS ORDERED: POTASSIUM PHOS 3 MMOL/1 ML INFUSION IV STA (14:40)
[2018-04-15] MEDS ORDERED: POTASSIUM PHOSPHATE 24 MMOL in SODIUM CHLORIDE 0.9% 500 ML IV ONE (16:00)
[2018-04-15] MEDS: POTASSIUM CHLORIDE 20 MEQ TABCR PO SCH (21:05)
[2018-04-15] MEDS: ZOLPIDEM TARTRATE 5 MG TAB PO PRN (23:05)
--- NOTE | 2018-04-15 23:06 | Hospitalist Progress Note ---
Date of Service April 15, 2018 Assessment & Plan (1) Alcohol withdrawal: As noted below. (2) Alcoholic hepatitis: Patient has transaminases in the thousand range she is having increased alcohol intake of late. Some concern of alcoholic hepatitis. However her coagulation studies seem to be relatively intact. Patient is alcohol associated thrombocytopenia. Discussed case with GI, unable to determine if patient has cirrhosis or alcohol hepatitis. Even if she has cirrhosis, unlikely to obtain transplant given that she continues to drink. She would need at least 6 months of abstinence from alcohol. LFTs improved . (3) Coffee ground emesis: Reported coffee-ground emesis while at [facility] H&H were 10 and 33 patient was on a Protonix drip Hemoglobin has remained stable. On PPI BID. (4) Hypokalemia: Patient is hypokalemic this is in the face of acidemia this may worsen we will continue to watch carefully. On 04/15 she was hypokalemic in AM. This is replaced will recheck in AM. (5) Acute kidney injury: By the outpatient labs patient's creatinine was 2.9 she was hydrated aggressively we will have her on maintenance fluids and recheck her labs frequently. This has resolved. Resolved. (6) Suicide attempt: Patient is a 302 the warranted signed the patient on suicide watch and she will likely need to go to psychiatric care once she is stabilized medically. Awaiting input by psych. If not able to 302, will transfer to 454. Spoke with psych, does not meet criteria for 302. (7) Acute metabolic encephalopathy: Heptaic vs alcoholic vs toxic. -Ammonia negative, currently having diarrhea on lactulose, goal 2-3 bowel movements per day Patient developed DT and became confused and agitated. patient required intubation for airway protection. She was extubated on 04/13. On thiamine. Tis appears to have resolved on 04/15 (8) Delirium tremens: As noted above. Chronic pain -Chronic pain pump -Receiving in the pump 18 mg IV morphine daily and 2.52 mcg fentanyl daily (9) Acute respiratory failure with hypoxia: -Bilateral pleural effusion seen on CT scan Possible pneumonia. Started on cefepime. Procalcitonin is elevated. Patient does not have any evidence of pulmonary emboli Intubated as noted above. Managed by diesel stationary engineer (10) Cardiomyopathy: Appreciate cardiac input. Patient has a history of reduced LV systolic function. LV function is worse when compared to previous echo. Etiology is unknown, it is likely related to chronic alcohol abuse. Currently patient developed pulmonary edema. She was aggressively hydrated due to volume depletion at the time of admission. If her clinical course improves, we can consider addition of oral beta blockade and YURI-I. (11) Demand ischemia: Probable NSTEMI (non-ST elevated myocardial infarction): Patient had mildly elevated trop. May be from demand ischemia. Cardio does not believe this to be an active ACS. Appreciate cardio input: Use of beta blockers for her withdrawal symptoms would also be beneficial from a cardiac perspective. spent 25 minutes in management of patient. Subjective Patient is currently in med/surg. Patient is doing well. Patient denies any symptoms this AM. Physical Exam Vital Signs (Past 24 Hours): Last Vital Signs Temp 37.1 C 04/15/18 23:03 Pulse 81 04/15/18 23:03 Resp 20 04/15/18 23:03 BP 123/82 04/15/18 23:03 Pulse Ox 99 04/15/18 23:03 Physical Exam: The patient is resting comfortably. She is no acute distress. Vital signs as documented. Head exam is unremarkable. normocephalic, atraumatic Neck is with jugular venous distension, thyromegaly, or lymphademopathy Lungs are diminished but no focal air loss Cardiac exam reveals RRR Abdominal exam reveals normal bowel sounds, no masses, no organomegaly Extremities are nonedematous and both pedal pulses are present Skin is warm Dry
[2018-04-16] MEDS: METHYLCELLULOSE POWDER 454 GM JAR PO SCH ×2 (07:47→21:15)
[2018-04-16] MEDS: predniSONE 10 MG TABLET PO SCH (07:48)
[2018-04-16] MEDS: FOLIC ACID 1 MG TAB PO SCH (07:48)
[2018-04-16] MEDS: METOPROLOL TARTRATE 25 MG TAB PO SCH ×2 (07:48→21:14)
[2018-04-16] MEDS: POTASSIUM CHLORIDE 20 MEQ TABCR PO SCH ×2 (07:48→21:14)
[2018-04-16] MEDS: THIAMINE HCL 100 MG TAB PO SCH (07:48)
[2018-04-16] MEDS: PANTOprazole 40 MG TAB PO SCH ×2 (07:48→21:14)
[2018-04-16] MEDS: ENOXAPARIN INJ 40 MG/0.4 ML SYR SQ SCH (07:51)
[2018-04-16] MEDS: INSULIN ASPART 100 UNITS/ML 3 ML PEN SC SCH ×2 (08:12→12:19)
[2018-04-16] MEDS: ONDANSETRON INJ 2 MG/ML 2 ML VIAL IV PRN ×2 (10:36→16:21)
[2018-04-16 11:18] LABS: BUN Creatinine Ratio 18.2 (10-20); Calcium 7.6 mg/dl (8.5-10.1); Creatinine Clr Calc Pharmacy 160.8 ml/min; Est GFR (African American) 141.7; Est GFR (Non-African American) 122.3; Magnesium 1.8 mg/dl (1.8-2.4)
[2018-04-16 11:19] LABS: Phosphorus 1.7 mg/dl (2.5-4.9)
--- NOTE | 2018-04-16 11:56 | Psychiatric Progress Note ---
Date of Service April 16, 2018 Impression / Recommendations (1) Acute metabolic encephalopathy: there is no evidence of psychosis, delirium, or ongoing SI interfering with her medical decision-making. Presentation due to substance misuse and is agreeing to [facility] services. There is no indication for involuntary psychiatric commitment. Examiner's portion of forms completed. Main safety planning is around access to ETOH and controlled substances per primary team. Risk Factors Assessment Male: No : Yes Do You Have Access To A Gun?: No Health Problems: Yes Mental Health Diagnoses: Yes Substance Use Disorders: Yes Previous Psychiatric Hospitalization: Yes Interval History Chief Complaint request to disposition 302 warrant Subjective Subjective Patient was seen & assessed and interval progress reviewed with Nursing. Dr. Jarquin's consultation reviewed. Patient's condition related to D&A use, has consistently denied a suicide attempt. Dr. Jarquin recommended warrant remain on chart at that time as AMS still resolving. Patient has been cooperative with medical care and is agreeable to outpatient treatment at [facility] to address her condition. Main issue was access to controlled substances in combo with ETOH, primary team/records should go to outpatient providers. Physical Exam Mental Examination Appearance: Well Groomed Eye Contact: Direct Eye Contact Speech: Normal Mood: Euthymic (denies SI/HI) Affect: Appropriate Thought Process: Linear Hallucinations: None Vital Signs (Past 24 Hours) Last Vital Signs Temp 36.7 C 04/16/18 08:00 Pulse 85 04/16/18 08:00 Resp 18 04/16/18 08:00 BP 116/77 04/16/18 08:00 Pulse Ox 98 04/16/18 08:00 Results & Data Laboratory Results Laboratory Results - last 24 hr 04/15/18 04/15/18 04/15/18 11:09 11:52 16:00 WBC 7.63 RBC 3.27 L Hgb 10.3 L Hct 30.8 L MCV 94.2 MCH 31.5 MCHC 33.4 RDW Std Deviation 64.5 H RDW Coeff of Chetan 19.0 H Plt Count 95 L MPV 12.0 H Immature Gran % (Auto) 0.7 Neut % (Auto) 81.2 Lymph % (Auto) 5.5 [place] % (Auto) 12.1 Eos % (Auto) 0.4 Baso % (Auto) 0.1 Immature Gran # (Auto) 0.05 H Neut # (Auto) 6.20 Lymph # (Auto) 0.42 L [place] # (Auto) 0.92 H Eos # (Auto) 0.03 Baso # (Auto) 0.01 Toxic Granulation 1+ Anisocytosis Present Sodium Potassium Chloride Carbon Dioxide Anion Gap BUN Creatinine Est Cr Clr Drug Dosing Est GFR ( Amer) Est GFR (Non-Af Amer) BUN/Creatinine Ratio Glucose POC Glucose 115 H Calcium Phosphorus Magnesium Stl C. diff Tox B Gene Neg C.diff Toxin B 04/15/18 04/15/18 04/16/18 16:38 19:47 08:05 WBC RBC Hgb Hct MCV MCH MCHC RDW Std Deviation RDW Coeff of Chetan Plt Count MPV Immature Gran % (Auto) Neut % (Auto) Lymph % (Auto) [place] % (Auto) Eos % (Auto) Baso % (Auto) Immature Gran # (Auto) Neut # (Auto) Lymph # (Auto) [place] # (Auto) Eos # (Auto) Baso # (Auto) Toxic Granulation Anisocytosis Sodium Potassium Chloride Carbon Dioxide Anion Gap BUN Creatinine Est Cr Clr Drug Dosing Est GFR ( Amer) Est GFR (Non-Af Amer) BUN/Creatinine Ratio Glucose POC Glucose 134 H 166 H 103 H Calcium Phosphorus Magnesium Stl C. diff Tox B Gene 04/16/18 10:27 WBC RBC Hgb Hct MCV MCH MCHC RDW Std Deviation RDW Coeff of Chetan Plt Count MPV Immature Gran % (Auto) Neut % (Auto) Lymph % (Auto) [place] % (Auto) Eos % (Auto) Baso % (Auto) Immature Gran # (Auto) Neut # (Auto) Lymph # (Auto) [place] # (Auto) Eos # (Auto) Baso # (Auto) Toxic Granulation Anisocytosis Sodium 138 Potassium 3.0 L Chloride 107 Carbon Dioxide 24 Anion Gap 7.0 BUN 7 Creatinine 0.36 L Est Cr Clr Drug Dosing 160.8 Est GFR ( Amer) 141.7 Est GFR (Non-Af Amer) 122.3 BUN/Creatinine Ratio 18.2 Glucose 106 H POC Glucose Calcium 7.6 L Phosphorus 1.7 L Magnesium 1.8 Stl C. diff Tox B Gene Current Inpatient Medications Current Inpatient Medications: Current Inpatient Medications Chlordiazepoxide HCl (Librium) 10 mg PO ONE PRN; Protocol PRN Reason: EtoH Withdrawal AWSS 6-10 Dextrose (Dextrose 50%) 25 - 50 ml IV UD PRN; Protocol PRN Reason: Hypoglycemia Protocol Stop: 05/11/18 01:08 Enoxaparin Sodium (Lovenox) 40 mg SQ DAILY MICHELLE Stop: 05/12/18 10:59 Last Admin: 04/16/18 07:51 Dose: 40 mg Documented by: Folic Acid (Folvite) 1 mg PO DAILY MICHELLE Stop: 05/14/18 08:59 Last Admin: 04/16/18 07:48 Dose: 1 mg Documented by: Glucagon (Glucagen) 1 mg IM UD PRN; Protocol PRN Reason: Hypoglycemia Protocol Stop: 05/11/18 01:08 Glucose (Glucose 40%) 15 - 30 gm PO UD PRN; Protocol PRN Reason: Hypoglycemia Protocol Stop: 05/11/18 01:08 Glucose (Dex4 Glucose) 4 - 8 tabs PO UD PRN; Protocol PRN Reason: Hypoglycemia Protocol Stop: 05/11/18 01:08 Heparin Sodium (Beef Lung) (Heparin Sod 10 Unit/Ml Flush) 5 ml FLUSH PRN PRN PRN Reason: Flush Stop: 05/10/18 01:06 Ceftriaxone Sodium 1,000 mg/ (Dextrose) 50 mls @ 100 mls/hr IV DAILY@1200 MICHELLE Stop: 04/18/18 12:01 Last Infusion: 04/15/18 12:39 Dose: Infused Documented by: Insulin Aspart (Novolog Flexpen) 0 units SC ACHS MICHELLE Stop: 05/13/18 20:59 Last Admin: 04/16/18 08:12 Dose: Not Given Documented by: Lactulose (Chronulac) 30 gm PO UD [facility] Stop: 05/11/18 11:29 Methylcellulose (Citrucel) 19 gm PO BID MICHELLE Stop: 05/14/18 09:29 Last Admin: 04/16/18 07:47 Dose: 19 gm Documented by: Metoprolol Tartrate (Lopressor) 12.5 mg PO BID [facility] Stop: 05/15/18 10:44 Last Admin: 04/16/18 07:48 Dose: 12.5 mg Documented by: Miscellaneous (Carbohydrates For Hypoglycemia) 15 - 30 gm PO UD PRN PRN Reason: Hypoglycemia Treatment Stop: 05/11/18 01:08 Miscellaneous Information (Consult Glycemic Management Pharmacy) 1 ea N/A UD PRN PRN Reason: Consult Stop: 05/10/18 06:51 Ondansetron HCl (Zofran) 4 mg IV Q6H PRN PRN Reason: Nausea Stop: 05/14/18 19:19 Last Admin: 04/16/18 10:36 Dose: 4 mg Documented by: Pantoprazole Sodium (Protonix) 40 mg PO BID [facility] Stop: 05/14/18 08:59 Last Admin: 04/16/18 07:48 Dose: 40 mg Documented by: Potassium Chloride (Klor-Con M20) 20 meq PO BID [facility] Stop: 05/15/18 20:59 Last Admin: 04/16/18 07:48 Dose: 20 meq Documented by: Prednisone (Prednisone) 20 mg PO DAILY [facility]; Taper Stop: 04/23/18 08:59 Last Admin: 04/16/18 07:48 Dose: 20 mg Documented by: Thiamine HCl (Vitamin B-1) 100 mg PO DAILY [facility] Stop: 05/14/18 08:59 Last Admin: 04/16/18 07:48 Dose: 100 mg Documented by: Zolpidem Tartrate (Ambien) 5 mg PO HS PRN PRN Reason: Sleep Stop: 05/14/18 17:48 Last Admin: 04/15/18 23:05 Dose: 5 mg Documented by: CPT Code CPT Code 42518 [id number]
[2018-04-16] MEDS: cefTRIAXone SODIUM 1,000 MG in DEXTROSE 5% 50 ML IV SCH (12:09)
[2018-04-16] MEDS ORDERED: POTASSIUM PHOS 3 MMOL/1 ML INFUSION IV STA (12:45)
[2018-04-16] MEDS ORDERED: POTASSIUM PHOSPHATE 24 MMOL in SODIUM CHLORIDE 0.9% 500 ML IV ONE (13:30)
--- NOTE | 2018-04-16 14:52 | Pharmacy Report ---
Pharmacy Glycemic Sign Off Nt - Date of Service April 16, 2018 - Assessment & Plan ASSESSMENT: * Pharmacy was consulted by Dr Varela on 04/10/18 for glycemic control and to write orders per [facility] inpatient glycemic control protocol. * No major changes have been made to insulin regimen in the past 72 hours. * Patient has been received 0-1 units per day over the past 48 hours with adequate glycemic control * BSGs ranging 81- 166 mg/dl * Patient does not have a h/o of diabetes and A1c is 4.8%. She was initiated on insulin due to IV steroids. This were discontinued on 04/13 PM. PLAN FOR INPATIENT GLYCEMIC CONTROL: * Discontinue insulin * Pharmacy is signing off of glycemic consult and will no longer be making adjustments to inpatient regimen. Please feel free to re-consult if needed. Thank you. DISCHARGE RECOMMENDATIONS: * none - pt not diabetic
[2018-04-16] MEDS: ZOLPIDEM TARTRATE 5 MG TAB PO PRN (22:04)
--- NOTE | 2018-04-16 22:32 | Hospitalist Progress Note ---
Date of Service April 16, 2018 Assessment & Plan (1) Alcohol withdrawal: As noted below. (2) Alcoholic hepatitis: Patient has transaminases in the thousand range she is having increased alcohol intake of late. Some concern of alcoholic hepatitis. However her coagulation studies seem to be relatively intact. Patient is alcohol associated thrombocytopenia. Discussed case with GI, unable to determine if patient has cirrhosis or alcohol hepatitis. Even if she has cirrhosis, unlikely to obtain transplant given that she continues to drink. She would need at least 6 months of abstinence from alcohol. LFTs improved . (3) Coffee ground emesis: Reported coffee-ground emesis while at [facility] H&H were 10 and 33 patient was on a Protonix drip Hemoglobin has remained stable. On PPI BID. (4) Hypokalemia: Patient is hypokalemic this is in the face of acidemia this may worsen we will continue to watch carefully. On 04/15 she was hypokalemic in AM. will replace. Will continue to aggresively replace and will monitor. (5) Acute kidney injury: By the outpatient labs patient's creatinine was 2.9 she was hydrated aggressively we will have her on maintenance fluids and recheck her labs frequently Resolved. (6) Suicide attempt: Patient does not meet criteria for 302. Patient will be on med/surg (7) Acute metabolic encephalopathy: Heptaic vs alcoholic vs toxic. -Ammonia negative, currently having diarrhea on lactulose, goal 2-3 bowel movements per day Patient developed DT and became confused and agitated. patient required intubation for airway protection. She was extubated on 04/13. On thiamine (8) Delirium tremens: As noted above. Chronic pain -Chronic pain pump -Receiving in the pump 18 mg IV morphine daily and 2.52 mcg fentanyl daily (9) Acute respiratory failure with hypoxia: -Bilateral pleural effusion seen on CT scan Possible pneumonia. Started on cefepime. Procalcitonin is elevated. Patient does not have any evidence of pulmonary emboli Intubated as noted above. 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 Patient has a history of reduced LV systolic function. LV function is worse when compared to previous echo. Etiology is unknown, it is likely related to chronic alcohol abuse. Currently patient developed pulmonary edema. She was aggressively hydrated due to volume depletion at the time of admission. If her clinical course improves, we can consider addition of oral beta blockade and YURI-I. (11) Demand ischemia: Probable NSTEMI (non-ST elevated myocardial infarction): Patient had mildly elevated trop. May be from demand ischemia. Cardio does not believe this to be an active ACS. Appreciate cardio input: Use of beta blockers for her withdrawal symptoms would also be beneficial from a cardiac perspective. spent 25 minutes in management of patient. Subjective Patient reports doing better. Patients electrolytes are still not resolved, Patient also states she is not able to leave due to inclement weather. Constitutional: no sweats and no malaise Eyes: no diplopia Ear, Nose, Mouth, Throat: no ear pain Respiratory: no cough Cardiovascular: no chest pain Gastrointestinal: no abdominal pain Musculoskeletal: no back pain Integumentary: no acne Neurologic: no gait abnormality Physical Exam Vital Signs (Past 24 Hours): Last Vital Signs Temp 37.1 C 04/16/18 16:00 Pulse 96 H 04/16/18 21:14 Resp 18 04/16/18 16:00 BP 108/72 04/16/18 21:14 Pulse Ox 98 04/16/18 16:00 Physical Exam: The patient is resting comfortably. She is no acute distress. Vital signs as documented. Head exam is unremarkable. normocephalic, atraumatic Neck is with jugular venous distension, thyromegaly, or lymphademopathy Lungs are diminished but no focal air loss Cardiac exam reveals RRR Abdominal exam reveals normal bowel sounds, no masses, no organomegaly Extremities are nonedematous and both pedal pulses are present Skin is warm Dry
[2018-04-17] MEDS: PANTOprazole 40 MG TAB PO SCH ×2 (08:58→21:01)
[2018-04-17] MEDS: POTASSIUM CHLORIDE 20 MEQ TABCR PO SCH ×2 (08:58→21:00)
[2018-04-17] MEDS: predniSONE 10 MG TABLET PO SCH (08:58)
[2018-04-17] MEDS: METOPROLOL TARTRATE 25 MG TAB PO SCH ×2 (08:58→21:01)
[2018-04-17] MEDS: ENOXAPARIN INJ 40 MG/0.4 ML SYR SQ SCH (08:58)
[2018-04-17] MEDS: THIAMINE HCL 100 MG TAB PO SCH (08:58)
[2018-04-17] MEDS: FOLIC ACID 1 MG TAB PO SCH (08:58)
[2018-04-17] MEDS: METHYLCELLULOSE POWDER 454 GM JAR PO SCH ×2 (08:59→21:01)
[2018-04-17] MEDS: ONDANSETRON INJ 2 MG/ML 2 ML VIAL IV PRN ×2 (09:06→15:17)
[2018-04-17 09:25] LABS: BUN Creatinine Ratio 4.8 (10-20); Calcium 7.9 mg/dl (8.5-10.1); Creatinine Clr Calc Pharmacy 152.3 ml/min; Est GFR (African American) 139.2; Est GFR (Non-African American) 120.1; Magnesium 1.7 mg/dl (1.8-2.4); Phosphorus 1.8 mg/dl (2.5-4.9); Potassium 3.7 mmol/L (3.5-5.1)
[2018-04-17] MEDS ORDERED: POTASSIUM PHOS 3 MMOL/1 ML INFUSION IV STA (09:55)
[2018-04-17] MEDS ORDERED: POTASSIUM PHOSPHATE 24 MMOL in SODIUM CHLORIDE 0.9% 500 ML IV ONE (10:00)
[2018-04-17] MEDS: MAGNESIUM OXIDE 400 MG TAB PO SCH ×2 (10:37→21:00)
[2018-04-17] MEDS: cefTRIAXone SODIUM 1,000 MG in DEXTROSE 5% 50 ML IV SCH (12:22)
[2018-04-17 17:37] LABS: Albumin Level 2.6 gm/dl (3.4-5.0); Bilirubin Direct 0.9 mg/dl (0-0.2); Bilirubin,Total 1.4 mg/dl (0.2-1); Total Protein 5.9 gm/dl (6.4-8.2)
[2018-04-17 20:44] LABS: Coag Factor 5 Activity 59 % (65-150); Coag Factor 7 Activity 42 % (60-150)
[2018-04-17] MEDS: ZOLPIDEM TARTRATE 5 MG TAB PO PRN (22:12)
--- NOTE | 2018-04-17 23:11 | Hospitalist Progress Note ---
Date of Service April 17, 2018 Assessment & Plan (1) Alcohol withdrawal: As noted below. (2) Alcoholic hepatitis: Patient has transaminases in the thousand range she is having increased alcohol intake of late. Some concern of alcoholic hepatitis. However her coagulation studies seem to be relatively intact. Patient is alcohol associated thrombocytopenia. Discussed case with GI, unable to determine if patient has cirrhosis or alcohol hepatitis. Even if she has cirrhosis, unlikely to obtain transplant given that she continues to drink. She would need at least 6 months of abstinence from alcohol. LFTs improved . (3) Coffee ground emesis: Reported coffee-ground emesis while at [facility] H&H were 10 and 33 patient was on a Protonix drip Hemoglobin has remained stable. On PPI BID. (4) Hypokalemia: Patient is hypokalemic this is in the face of acidemia this may worsen we will continue to watch carefully. Potassium at goal on 04/17 (5) Acute kidney injury: By the outpatient labs patient's creatinine was 2.9 she was hydrated aggressively we will have her on maintenance fluids and recheck her labs frequently Resolved. (6) Suicide attempt: Patient does not meet criteria for 302. Patient will be on med/surg (7) Acute metabolic encephalopathy: Heptaic vs alcoholic vs toxic. -Ammonia negative, currently having diarrhea on lactulose, goal 2-3 bowel movements per day Patient developed DT and became confused and agitated. patient required intubation for airway protection. She was extubated on 04/13. On thiamine (8) Delirium tremens: As noted above. Chronic pain -Chronic pain pump -Receiving in the pump 18 mg IV morphine daily and 2.52 mcg fentanyl daily (9) Acute respiratory failure with hypoxia: resolved. (10) Cardiomyopathy: Appreciate cardiac input. Patient has a history of reduced LV systolic function. LV function is worse when compared to previous echo. Etiology is unknown, it is likely related to chronic alcohol abuse. Currently patient developed pulmonary edema. She was aggressively hydrated due to volume depletion at the time of admission. If her clinical course improves, we can consider addition of oral beta blockade and YURI-I. (11) Demand ischemia: Probable NSTEMI (non-ST elevated myocardial infarction): Patient had mildly elevated trop. May be from demand ischemia. Cardio does not believe this to be an active ACS. Appreciate cardio input: Use of beta blockers for her withdrawal symptoms would also be beneficial from a cardiac perspective. Chest pain: Patient complained of 4 hour chest pain. This pain is not pressure like and is similar to her pain in the past in which she requires her pain pump. will check trop x 2. Hypomagnesmia: replaced. Hypophosphatemia: replaced. spent 25 minutes in management of patient. Subjective Patient reports feeling well. She states she would like to go home with home health. However, later in the day, when patient was ready to go, she changed her mind and is now willing to go to rehab. Physical Exam Vital Signs (Past 24 Hours): Last Vital Signs Temp 36.8 C 04/17/18 15:28 Pulse 78 04/17/18 15:28 Resp 15 04/17/18 15:28 BP 114/76 04/17/18 15:28 Pulse Ox 95 04/17/18 15:28 Physical Exam: The patient is resting comfortably. She is no acute distress. Vital signs as documented. Head exam is unremarkable. normocephalic, atraumatic Neck is with jugular venous distension, thyromegaly, or lymphademopathy Lungs are diminished but no focal air loss Cardiac exam reveals RRR Abdominal exam reveals normal bowel sounds, no masses, no organomegaly Extremities are nonedematous and both pedal pulses are present Skin is warm Dry
[2018-04-18] MEDS: ONDANSETRON INJ 2 MG/ML 2 ML VIAL IV PRN ×3 (08:58→21:15)
[2018-04-18] MEDS: METOPROLOL TARTRATE 25 MG TAB PO SCH ×2 (09:47→22:08)
[2018-04-18] MEDS: THIAMINE HCL 100 MG TAB PO SCH (09:48)
[2018-04-18] MEDS: POTASSIUM CHLORIDE 20 MEQ TABCR PO SCH ×2 (09:48→22:06)
[2018-04-18] MEDS: MAGNESIUM OXIDE 400 MG TAB PO SCH ×2 (09:48→22:05)
[2018-04-18] MEDS: PANTOprazole 40 MG TAB PO SCH ×2 (09:48→22:06)
[2018-04-18] MEDS: FOLIC ACID 1 MG TAB PO SCH (09:48)
[2018-04-18] MEDS: predniSONE 10 MG TABLET PO SCH (09:48)
[2018-04-18] MEDS: METHYLCELLULOSE POWDER 454 GM JAR PO SCH ×2 (09:48→20:02)
[2018-04-18] MEDS: ENOXAPARIN INJ 40 MG/0.4 ML SYR SQ SCH (09:49)
[2018-04-18] MEDS ORDERED: METOCLOPRAMIDE HCL 10 MG TABLET PO ONE (12:00)
[2018-04-18] MEDS: cefTRIAXone SODIUM 1,000 MG in DEXTROSE 5% 50 ML IV SCH (12:26)
[2018-04-18 14:28] LABS: Hematocrit (blood only) 32.4 % (37-47); Hemoglobin 10.3 g/dL (12.0-16.0); Mean Corpuscular Hgb Conc 31.8 g/dL (32-36); Mean Corpuscular Volume 98.5 fL (80-100); Mean Platelet Volume 10.7 fL (7.4-10.4); Platelet Count 225 K/uL (130-400); RDW Coefficient of Variation 19.8 % (11.5-14.5); RDW Standard Deviation 68.9 fL (36.4-46.3); Red Blood Count 3.29 M/uL (4.2-5.4); White Blood Count 5.13 K/uL (4.8-10.8)
[2018-04-18 14:40] LABS: BUN Creatinine Ratio 7.5 (10-20); Calcium 7.9 mg/dl (8.5-10.1); Creatinine Clr Calc Pharmacy 137.8 ml/min; Est GFR (African American) 134.7; Est GFR (Non-African American) 116.2; Magnesium 1.9 mg/dl (1.8-2.4); Potassium 3.4 mmol/L (3.5-5.1)
[2018-04-18 14:41] LABS: Phosphorus 1.9 mg/dl (2.5-4.9)
[2018-04-18] MEDS: ZOLPIDEM TARTRATE 5 MG TAB PO PRN (23:09)
--- NOTE | 2018-04-18 23:57 | Hospitalist Progress Note ---
Date of Service April 18, 2018 Assessment & Plan (1) Alcohol withdrawal: As noted below. (2) Alcoholic hepatitis: Patient has transaminases in the thousand range she is having increased alcohol intake of late. Some concern of alcoholic hepatitis. However her coagulation studies seem to be relatively intact. Patient is alcohol associated thrombocytopenia. Discussed case with GI, unable to determine if patient has cirrhosis or alcohol hepatitis. Even if she has cirrhosis, unlikely to obtain transplant given that she continues to drink. She would need at least 6 months of abstinence from alcohol. LFTs improved . (3) Coffee ground emesis: Reported coffee-ground emesis while at [facility] H&H were 10 and 33 patient was on a Protonix drip Hemoglobin has remained stable. On PPI BID. (4) Hypokalemia: Patient is hypokalemic this is in the face of acidemia this may worsen we will continue to watch carefully. Potassium is 3.4 on 04/18. Currently getting 20 meq of potassium bID. (5) Acute kidney injury: By the outpatient labs patient's creatinine was 2.9 she was hydrated aggressively we will have her on maintenance fluids and recheck her labs frequently Resolved. (6) Suicide attempt: Patient does not meet criteria for 302. Patient will be on med/surg (7) Acute metabolic encephalopathy: Heptaic vs alcoholic vs toxic. -Ammonia negative, currently having diarrhea on lactulose, goal 2-3 bowel movements per day Patient developed DT and became confused and agitated. patient required intubation for airway protection. She was extubated on 04/13. On thiamine (8) Alcohol withdrawal/Delirium tremens: Patient was agitated and required intubation. Extubated on 04/13 Chronic pain -Chronic pain pump -Receiving in the pump 18 mg IV morphine daily and 2.52 mcg fentanyl daily (9) Acute respiratory failure with hypoxia: resolved. (10) Cardiomyopathy: Appreciate cardiac input. Patient has a history of reduced LV systolic function. LV function is worse when compared to previous echo. Etiology is unknown, it is likely related to chronic alcohol abuse. Currently patient developed pulmonary edema. She was aggressively hydrated due to volume depletion at the time of admission. If her clinical course improves, we can consider addition of oral beta blockade and YURI-I. HR is low in the 60s, may consider starting yuri inhibitor at discharge. (11) Demand ischemia: Probable NSTEMI (non-ST elevated myocardial infarction): Patient had mildly elevated trop. May be from demand ischemia. Cardio does not believe this to be an active ACS. Appreciate cardio input: Use of beta blockers for her withdrawal symptoms would also be beneficial from a cardiac perspective. Chest pain: Patient complained of 4 hour chest pain. This pain is not pressure like and is similar to her pain in the past in which she requires her pain pump. trop x 2 neg (3.5) Hypomagnesmia: replaced. Hypophosphatemia: replaced. spent 25 minutes in management of patient. Pending placement. Initially going home on home health, however at last minute, changed her mind. Working on going to rehab. Subjective Oatient reports having nausea and vomiting.She is vomitiing anything that she eats, and it is a small amount, about half a cup. She deneis any other conplaints, no fever, chills. She tells me she would like to go to rehab on Tuesday. Explained to patient that she would need to go to participate in PT, and then will apply for rehab. Patient understands. Physical Exam Vital Signs (Past 24 Hours): Last Vital Signs Temp 36.9 C 04/18/18 23:22 Pulse 62 04/18/18 23:22 Resp 18 04/18/18 23:22 BP 118/78 04/18/18 23:22 Pulse Ox 94 04/18/18 23:22 Physical Exam: The patient is resting comfortably. She is no acute distress. Vital signs as documented. Head exam is unremarkable. normocephalic, atraumatic Neck is with jugular venous distension, thyromegaly, or lymphademopathy Lungs are diminished but no focal air loss Cardiac exam reveals RRR Abdominal exam reveals normal bowel sounds, no masses, no organomegaly Extremities are nonedematous and both pedal pulses are present Skin is warm Dry
[2018-04-19] MEDS: ONDANSETRON INJ 2 MG/ML 2 ML VIAL IV PRN ×3 (06:10→22:10)
[2018-04-19] MEDS: METHYLCELLULOSE POWDER 454 GM JAR PO SCH ×2 (08:33→20:02)
[2018-04-19] MEDS ORDERED: PROMETHAZINE HCL 12.5 MG in SODIUM CHLORIDE 0.9% 50 ML IV STA (08:45)
--- NOTE | 2018-04-19 08:53 | Hospitalist Progress Note ---
Date of Service April 19, 2018 Assessment & Plan (1) Alcohol withdrawal: Alcoholic hepatitis: elevated transaminases on presentation, increased alcohol intake of late. LFTs improved . Patient is alcohol associated thrombocytopenia. Discussed case with GI, unable to determine if patient has cirrhosis or alcohol hepatitis. Even if she has cirrhosis, unlikely to obtain transplant given that she continues to drink. She would need at least 6 months of abstinence from alcohol. Coffee ground emesis: Reported coffee-ground emesis while at [facility] Hemoglobin has remained stable. On PPI BID. Hypokalemia: Potassium is 3.4 on 04/18. Currently getting 20 meq of potassium bID. Acute kidney injury: resolved Suicide attempt: Patient does not meet criteria for 302. Patient will be on med/surg Acute metabolic encephalopathy: Heptaic vs alcoholic vs toxic. -Ammonia negative, currently having diarrhea on lactulose, goal 2-3 bowel movements per day Alcohol withdrawal/Delirium tremens: patient required intubation for airway protection, extubated on 04/13. On thiamine Chronic pain -Chronic pain pump -Receiving in the pump 18 mg IV morphine daily and 2.52 mcg fentanyl daily Acute respiratory failure with hypoxia: resolved. Cardiomyopathy: history of reduced LV systolic function. LV function is worse when compared to previous echo. Etiology is unknown, it is likely related to chronic alcohol abuse. patient developed pulmonary edema Demand ischemia: Cardiology does not believe this to be an active ACS. Hypomagnesmia, Hypophosphatemia hypokalemia replete Subjective Patient has mild nausea but is able to tolerate oral intake. She is now interested in pursuing physical therapy prior to her having alcohol therapy. She has no new focal complaints or problems other than her mild nausea Review of Systems ROS: well nourished well developed. No double vision blurry vision No problems with speech or swallowing No palpitations, chest pain or pressure No Wheezing or breathing issues No abdominal pain with mild nausea but no vomiting or diarrhea No burning urine urine frequency or changes in color No focal joint pain or muscle pain No skin rashes or oral lesions No unusual bruising or bleeding No focused back pain or numbness or loss of strength No changes in memory or confusion Physical Exam Vital Signs (Past 24 Hours): Last Vital Signs Temp 37.0 C 04/19/18 07:54 Pulse 79 04/19/18 07:54 Resp 18 04/19/18 07:54 BP 110/72 04/19/18 07:54 Pulse Ox 96 04/19/18 07:54 the patient appeared well nourished and normally developed. Vital signs as documented. Head exam is unremarkable. normocephalic, atraumatic Neck is without jugular venous distension, thyromegaly, or lymphademopathy Lungs are clear to auscultation and percussion. Cardiac exam reveals Rhythm is regular. First and second heart sounds normal. Abdominal exam reveals normal bowel sounds, no masses, no organomegaly mildly tender to deep palpation Extremities are nonedematous and both pedal pulses are present Neurologic exam is A&Ox3, no focal deficits, strength is equal bilateral Psychologically seems anxious & depressed Skin is warm Dry without bruises or lesions
[2018-04-19 09:30] LABS: BUN Creatinine Ratio 7.7 (10-20); Calcium 7.7 mg/dl (8.5-10.1); Creatinine Clr Calc Pharmacy 148.4 ml/min; Est GFR (Non-African American) 119.1; Magnesium 1.8 mg/dl (1.8-2.4); Potassium 3.2 mmol/L (3.5-5.1)
[2018-04-19] MEDS: predniSONE 10 MG TABLET PO SCH (09:40)
[2018-04-19] MEDS: METOPROLOL TARTRATE 25 MG TAB PO SCH ×2 (09:40→20:04)
[2018-04-19] MEDS: PANTOprazole 40 MG TAB PO SCH ×2 (09:40→20:04)
[2018-04-19] MEDS: FOLIC ACID 1 MG TAB PO SCH (09:40)
[2018-04-19] MEDS: THIAMINE HCL 100 MG TAB PO SCH (09:40)
[2018-04-19] MEDS: MAGNESIUM OXIDE 400 MG TAB PO SCH ×2 (09:40→20:03)
[2018-04-19] MEDS: POTASSIUM CHLORIDE 20 MEQ TABCR PO SCH ×3 (09:40→20:03)
[2018-04-19] MEDS: ENOXAPARIN INJ 40 MG/0.4 ML SYR SQ SCH (09:41)
[2018-04-19] MEDS ORDERED: POTASSIUM CHLORIDE 10 MEQ / 100ML WTR IV STA (18:19)
[2018-04-19] MEDS: POTASSIUM CHLORIDE / WTR 10 MEQ/100 ML PLCT IV SCH ×3 (19:56→22:12)
[2018-04-19] MEDS: ZOLPIDEM TARTRATE 5 MG TAB PO PRN (23:22)
[2018-04-20] MEDS: ONDANSETRON INJ 2 MG/ML 2 ML VIAL IV PRN ×3 (05:03→17:03)
[2018-04-20] MEDS: METHYLCELLULOSE POWDER 454 GM JAR PO SCH ×2 (07:25→20:00)
[2018-04-20] MEDS: ENOXAPARIN INJ 40 MG/0.4 ML SYR SQ SCH (08:54)
[2018-04-20] MEDS: METOPROLOL TARTRATE 25 MG TAB PO SCH ×2 (08:55→20:03)
[2018-04-20] MEDS: POTASSIUM CHLORIDE 20 MEQ TABCR PO SCH ×2 (08:56→20:01)
[2018-04-20] MEDS: FOLIC ACID 1 MG TAB PO SCH (08:56)
[2018-04-20] MEDS: THIAMINE HCL 100 MG TAB PO SCH (08:56)
[2018-04-20] MEDS: predniSONE 10 MG TABLET PO SCH (08:57)
[2018-04-20] MEDS: PANTOprazole 40 MG TAB PO SCH ×2 (08:58→20:01)
[2018-04-20] MEDS: MAGNESIUM OXIDE 400 MG TAB PO SCH (08:58)
--- NOTE | 2018-04-20 17:09 | Hospitalist Progress Note ---
Date of Service April 20, 2018 Assessment & Plan (1) Alcohol withdrawal: Alcoholic hepatitis: elevated transaminases on presentation, increased alcohol intake of late. Patient has been rescued from significant alcohol withdrawal and DTs requiring life support in the intensive care unit. She is now improved but has physical weakness has been bothered by persistent diarrhea Patient has alcohol associated thrombocytopenia. Previously Dr. Jameson discussed case with GI, unable to determine if patient has cirrhosis or alcohol hepatitis. Even if she has cirrhosis, unlikely to obtain transplant given that she continues to drink. She would need at least 6 months of abstinence from alcohol. Coffee ground emesis: Reported coffee-ground emesis while at [facility] Hemoglobin has remained stable. On PPI BID. Hypokalemia: Potassium remains low the patient is having challenges tolerating oral potassium due to nausea Acute kidney injury: resolved Suicide attempt: Patient does not meet criteria for 302. Patient will be on med/surg Acute metabolic encephalopathy: Heptaic vs alcoholic vs toxic encephalopathy. -Ammonia negative, Alcohol withdrawal/Delirium tremens: patient required intubation for airway protection, extubated on 04/13. On thiamine Chronic pain -Chronic pain pump -Receiving in the pump 18 mg IV morphine daily and 2.52 mcg fentanyl daily Acute respiratory failure with hypoxia: resolved. Cardiomyopathy: history of reduced LV systolic function. LV function is worse when compared to previous echo. Etiology is unknown, it is likely related to chronic alcohol abuse. patient developed pulmonary edema Demand ischemia: Cardiology does not believe this to be an active ACS. Hypomagnesmia, Hypophosphatemia hypokalemia replete Subjective Drea is having persistent problems with diarrhea despite holding her lactulose therapy, C. difficile is currently pending otherwise she is mentally clear being evaluated for possible placement for subacute rehab Review of Systems ROS: well nourished well developed. No double vision blurry vision No problems with speech or swallowing No palpitations, chest pain or pressure No Wheezing or breathing issues No abdominal pain nausea vomiting but persistent diarrhea initially on cathartic agents No burning urine urine frequency or changes in color No focal joint pain or muscle pain No skin rashes or oral lesions No unusual bruising or bleeding No focused back pain or numbness or loss of strength No changes in memory or confusion Physical Exam Vital Signs (Past 24 Hours): Last Vital Signs Temp 37.4 C 04/20/18 15:00 Pulse 69 04/20/18 15:00 Resp 22 04/20/18 15:00 BP 116/74 04/20/18 15:00 Pulse Ox 97 04/20/18 15:00 The patient appeared well nourished and normally developed. Vital signs as documented. Head exam is unremarkable. normocephalic, atraumatic Neck is without jugular venous distension, thyromegaly, or lymphademopathy Lungs are clear to auscultation and percussion. Cardiac exam reveals Rhythm is regular. First and second heart sounds normal. Abdominal exam reveals normal bowel sounds, soft, no masses, no organomegaly, no guarding Extremities are mildly edematous to the lower extremities and both pedal pulses are present Neurologic exam is A&Ox3, no focal deficits, strength is equal bilateral Psychologically seems neither anxious or depressed Skin is warm Dry without bruises or lesions
[2018-04-20] MEDS: CHOLESTYRAMINE LIGHT 4 GM PKT PO SCH (21:44)
[2018-04-20] MEDS: ZOLPIDEM TARTRATE 5 MG TAB PO PRN (22:02)
[2018-04-21] MEDS: METHYLCELLULOSE POWDER 454 GM JAR PO SCH ×2 (08:09→20:16)
[2018-04-21] MEDS: ENOXAPARIN INJ 40 MG/0.4 ML SYR SQ SCH (08:10)
[2018-04-21] MEDS: METOPROLOL TARTRATE 25 MG TAB PO SCH ×2 (08:10→20:17)
[2018-04-21] MEDS: FOLIC ACID 1 MG TAB PO SCH (08:10)
[2018-04-21] MEDS: predniSONE 10 MG TABLET PO SCH (08:10)
[2018-04-21] MEDS: PANTOprazole 40 MG TAB PO SCH ×2 (08:10→20:18)
[2018-04-21] MEDS: THIAMINE HCL 100 MG TAB PO SCH (08:11)
[2018-04-21] MEDS: ONDANSETRON INJ 2 MG/ML 2 ML VIAL IV PRN (08:11)
[2018-04-21] MEDS: CHOLESTYRAMINE LIGHT 4 GM PKT PO SCH ×2 (08:11→22:08)
[2018-04-21 09:20] LABS: Hematocrit (blood only) 35.4 % (37-47); Mean Corpuscular Hgb Conc 31.1 g/dL (32-36); Mean Corpuscular Volume 101.1 fL (80-100); Mean Platelet Volume 10.5 fL (7.4-10.4); Platelet Count 223 K/uL (130-400); RDW Coefficient of Variation 19.8 % (11.5-14.5); RDW Standard Deviation 72.4 fL (36.4-46.3); White Blood Count 6.58 K/uL (4.8-10.8)
[2018-04-21 09:42] LABS: Albumin Level 2.8 gm/dl (3.4-5.0); Calcium 8.2 mg/dl (8.5-10.1); Creatinine Clr Calc Pharmacy 156.4 ml/min; Est GFR (African American) 140.4; Est GFR (Non-African American) 121.2; Potassium 3.6 mmol/L (3.5-5.1)
[2018-04-21 09:45] LABS: Albumin Globulin Ratio 0.9 (0.9-2); Bilirubin,Total 1.1 mg/dl (0.2-1); Globulin 3.3 gm/dl (2.5-4.0); Total Protein 6.1 gm/dl (6.4-8.2)
--- NOTE | 2018-04-21 13:24 | CT Scan Report ---
ABDOMEN AND PELVIS CT WITH ORAL CONTRAST CT DOSE: 379.47 mGycm HISTORY: Acute generalized abdominal pain with vomiting. History of prior gastric bypass with right h emicolectomy History of acute pancreatitis. previous pancreatitis, persistent vomiting TECHNIQUE: Multiaxial CT images of the abdomen and pelvis were performed following the use of oral co ntrast. A dose lowering technique was utilized adhering to the principles of ALARA. COMPARISON STUDY: CT abdomen 04/10/2018. FINDINGS: Trace pleural effusions with subsegmental bibasilar atelectasis. Patchy ill-defined groundglass densi ties of the lung bases are also noted, notably within the lingular and right middle lobe with areas o f subsegmental tree-in-bud bibasilar nodules, notably within the basal right lower lobe. Costophrenic granuloma of the right middle lobe. No pneumatosis or pneumoperitoneum. Small to moderate pericardia l effusion. The imaged inferior cardiac chambers are otherwise unremarkable. Hepatic steatosis. Additionally, there is mild marginal nodularity of the liver. No intrahepatic bili fadumo ductal dilation or focal hepatic mass lesions identified. Prior cholecystectomy. Spleen is enlarg ed, 14.9 cm in length. Prominence of the pancreatic tail along its superior margin redemonstrated wit hout focal pancreatic mass lesion identified. No pancreatic ductal dilation. There is mild interstiti al with peripancreatic edema about the uncinate process, head and neck. No peripancreatic fluid colle ction. Mild thickening of the adrenal glands. 4 mm nonobstructing calculus of the inferior pole left kidney. Kidneys are otherwise unremarkable. No ureteral calculi or obstructive uropathy. Vascular calcifications adjacent to the mid right ureter r edemonstrated. Multiple pelvic basin calcifications are also seen. Streak artifact from left hip orth opedic hardware limits evaluation of the pelvic structures. Urinary bladder is unremarkable. Prior hy sterectomy. No adnexal mass lesions. Aorta and IVC are unremarkable. No adenopathy by CT size criteri a. Moderate circumferential wall thickening about the distal esophagus. Enteric contrast is also noted a bout the distal esophagus. Prior gastric bypass. No small bowel obstruction. There is mild to moderat e circumferential wall thickening about the mid and distal sigmoid colon and rectum with pericolonic stranding. Additional areas of mild wall thickening noted throughout the transverse and descending co sarkis. Postoperative changes from right hemicolectomy with enterocolic anastomosis. Additionally, mild wall thickening is noted throughout several loops of small bowel. Small volume of abdominopelvic asci michelle. Moderate generalized mesenteric and body wall edema. Nonspecific mildly prominent lymph nodes of the right lower quadrant mesentery. A subcutaneous device is noted about the right anterior abdominal wall. The lead is coiled within the subcutaneous tissues of the midline lower back. Bones appear to be intact. Chronic fracture about the left acetabulum. Un changed appearance of multiple remote compression deformities IMPRESSION: 1. Severe hepatic steatosis with marginal nodularity of the liver suggestive of cirrhosis. Fluid over load manifested by trace pleural effusions, small to moderate pericardial effusion, small volume of a bdominopelvic ascites with moderate mesenteric edema and generalized body wall edema. 2. Wall thickening throughout several loops of small bowel and also within the majority of the colon, most pronounced in the sigmoid and rectum is noted in addition to perisigmoid and perirectal inflamm ation. These findings may be secondary to fluid overload status versus a nonspecific infectious or in flammatory enteritis/proctocolitis. 3. Mild peripancreatic stranding about the uncinate process, pancreatic head and neck. Correlate with lipase level to exclude acute pancreatitis. No associated peripancreatic fluid collection. 4. Nonspecific wall thickening of the distal esophagus. 5. Nonobstructing left nephrolithiasis. 6. Additional findings as above. Electronically signed by: Brennon Matos M.D. 04/21/2018 1:23 PM
--- NOTE | 2018-04-21 15:04 | Hospitalist Progress Note ---
Date of Service April 21, 2018 Assessment & Plan (1) Alcohol withdrawal: Alcoholic hepatitis: Resolved elevated transaminases on presentation, increased alcohol intake Patient has been rescued from significant alcohol withdrawal and DTs requiring life support in the intensive care unit. She is now improved but has physical weakness has been bothered by persistent diarrhea nausea and vomiting Persistent nausea and vomiting patient likely has a component of chronic pancreatitis will start replacement enzymes Patient has alcohol associated thrombocytopenia. Previously Dr. Jameson discussed case with GI, unable to determine if patient has cirrhosis or alcohol hepatitis. Even if she has cirrhosis, unlikely to obtain transplant given that she continues to drink. She would need at least 6 months of abstinence from alcohol. Coffee ground emesis: Resolved Reported coffee-ground emesis while at [facility] Hemoglobin has remained stable. On PPI BID. Hypokalemia: Potassium remains low the patient is having challenges tolerating oral potassium due to nausea Acute kidney injury: resolved Suicide attempt: 302 is been rescinded Patient does not meet criteria for 302. Patient will be on med/surg Acute metabolic encephalopathy: Heptaic vs alcoholic vs toxic encephalopathy. -Ammonia negative, Alcohol withdrawal/Delirium tremens: patient required intubation for airway protection, extubated on 04/13. On thiamine Chronic pain -Chronic pain pump -Receiving in the pump 18 mg IV morphine daily and 2.52 mcg fentanyl daily Acute respiratory failure with hypoxia: resolved. Cardiomyopathy: history of reduced LV systolic function. LV function is worse when compared to previous echo. Etiology is unknown, it is likely related to chronic alcohol abuse. patient developed pulmonary edema Demand ischemia: Cardiology does not believe this to be an active ACS. Hypomagnesmia, Hypophosphatemia hypokalemia replete Subjective Patient still has some persistent nausea and vomiting. Repeated the CT scan abdomen pelvis showing some persistent inflammatory changes to the pancreas and some overall body edema likely related to poor nutritional state. Patient will have a dose of Lasix and also institution of pancreatic replacement enzymes. She is marketed hepatitis which can also explain the persistence of her nausea and symptoms. Review of Systems ROS: well nourished well developed. No double vision blurry vision No problems with speech or swallowing No palpitations, chest pain or pressure No Wheezing or breathing issues Diffuse generalized abdominal pain nausea and vomiting and persistent diarrhea No burning urine urine frequency or changes in color No focal joint pain or muscle pain No skin rashes or oral lesions No unusual bruising or bleeding No focused back pain or numbness or loss of strength No changes in memory or confusion Physical Exam Vital Signs (Past 24 Hours): Last Vital Signs Temp 36.7 C 04/21/18 07:33 Pulse 95 H 04/21/18 07:33 Resp 18 04/21/18 07:33 BP 102/67 04/21/18 07:33 Pulse Ox 98 04/21/18 07:33 the patient appeared well nourished and normally developed. Vital signs as documented. Head exam is unremarkable. normocephalic, atraumatic Neck is without jugular venous distension, thyromegaly, or lymphademopathy Lungs are clear to auscultation and percussion. Cardiac exam reveals Rhythm is regular. First and second heart sounds normal. Abdominal exam reveals distended and dull abdomen to percussion normal bowel sounds, no masses, no organomegaly Extremities are nonedematous and both pedal pulses are present Neurologic exam is A&Ox3, no focal deficits, strength is equal bilateral Psychologically seems anxious Skin is warm Dry without bruises or lesions
[2018-04-21] MEDS ORDERED: FUROSEMIDE 20 MG in SYRINGE 0 ML IV ONE (15:45)
[2018-04-21] MEDS: PANCREAZE (LIPASE 10,500U) CAP PO SCH (17:43)
[2018-04-21] MEDS: ZOLPIDEM TARTRATE 5 MG TAB PO PRN (22:09)
[2018-04-22] MEDS: ONDANSETRON INJ 2 MG/ML 2 ML VIAL IV PRN ×2 (00:48→08:22)
[2018-04-22] MEDS: METHYLCELLULOSE POWDER 454 GM JAR PO SCH ×2 (08:16→20:08)
[2018-04-22] MEDS: METOPROLOL TARTRATE 25 MG TAB PO SCH ×2 (08:21→20:14)
[2018-04-22] MEDS: FOLIC ACID 1 MG TAB PO SCH (08:22)
[2018-04-22] MEDS: ENOXAPARIN INJ 40 MG/0.4 ML SYR SQ SCH (08:22)
[2018-04-22] MEDS: PANCREAZE (LIPASE 10,500U) CAP PO SCH ×3 (08:22→17:23)
[2018-04-22] MEDS: PANTOprazole 40 MG TAB PO SCH ×2 (08:22→20:14)
[2018-04-22] MEDS: THIAMINE HCL 100 MG TAB PO SCH (08:22)
[2018-04-22] MEDS: CHOLESTYRAMINE LIGHT 4 GM PKT PO SCH ×2 (08:22→22:05)
[2018-04-22] MEDS: predniSONE 10 MG TABLET PO SCH (08:22)
[2018-04-22] MEDS: SUCRALFATE 1 GM/10 ML UDC PO SCH ×4 (11:52→20:14)
[2018-04-22] MEDS: ONDANSETRON INJ 2 MG/ML 2 ML VIAL IV SCH ×2 (11:53→18:49)
--- NOTE | 2018-04-22 16:37 | Hospitalist Progress Note ---
Date of Service April 22, 2018 Assessment & Plan (1) Alcohol withdrawal: Alcoholic hepatitis: Resolved elevated transaminases on presentation, increased alcohol intake Patient has been rescued from significant alcohol withdrawal and DTs requiring life support in the intensive care unit. She is now improved but has physical weakness, persistent nausea and resolving diarrhea Persistent nausea and vomiting patient likely has a component of chronic pancreatitis scheduled antiemetics and continue pancreatic replacement enzymes Patient has alcohol associated thrombocytopenia this is resolved Previously Dr. Jameson discussed case with GI, unable to determine if patient has cirrhosis or alcohol hepatitis. Even if she has cirrhosis, unlikely to obtain transplant given that she continues to drink. She would need at least 6 months of abstinence from alcohol. She states she is now strongly considering having abstinence from alcohol Coffee ground emesis: Resolved Reported coffee-ground emesis while at [facility] Hemoglobin has remained stable. On remains PPI BID. Hypokalemia: To require supplementation Acute kidney injury: resolved Suicide attempt: 302 is been rescinded Patient does not meet criteria for 302. Patient will be on med/surg Acute metabolic encephalopathy: Heptaic vs alcoholic vs toxic encephalopathy. -Ammonia negative, stop lactulose to improve diarrhea Alcohol withdrawal/Delirium tremens: patient required intubation for airway protection, extubated on 04/13. Chronic pain -Chronic pain pump -Receiving in the pump 18 mg IV morphine daily and 2.52 mcg fentanyl daily Acute respiratory failure with hypoxia: resolved. Cardiomyopathy: history of reduced LV systolic function. LV function is worse when compared to previous echo. Etiology is unknown, it is likely related to chronic alcohol abuse. Will recommend repeat echo in 6 months Demand ischemia: Cardiology does not believe this to be an active ACS. Subjective Patient is having persistent nausea with eating. May be from chronic pancreatitis. We will try scheduled Zofran at this time. We will have instituted pancreatic enzymes. Review of Systems ROS: Fatigue tired and weak No double vision blurry vision No problems with speech or swallowing No palpitations, chest pain or pressure No Wheezing or breathing issues Mild generalized abdominal pain with nausea without vomiting improved diarrhea No burning urine urine frequency or changes in color No focal joint pain or muscle pain No skin rashes or oral lesions No unusual bruising or bleeding No focused back pain or numbness or loss of strength No changes in memory or confusion seems depressed Physical Exam Vital Signs (Past 24 Hours): Last Vital Signs Temp 37.0 C 04/22/18 15:32 Pulse 76 04/22/18 15:32 Resp 18 04/22/18 15:32 BP 92/59 L 04/22/18 15:32 Pulse Ox 96 04/22/18 15:32 The patient appeared well nourished and normally developed. She seemed withdrawn and depressed Vital signs as documented. Head exam is unremarkable. normocephalic, atraumatic Neck is without jugular venous distension, thyromegaly, or lymphademopathy Lungs are clear to auscultation and percussion. Cardiac exam reveals Rhythm is regular. First and second heart sounds normal. Abdominal exam reveals mildly tender in the central abdomen, normal bowel sounds, soft no masses, no organomegaly Extremities are nonedematous and both pedal pulses are present Neurologic exam is A&Ox3, no focal deficits, strength is equal bilateral Psychologically seems depressed states "I did this to myself" Skin is warm Dry without bruises or lesions
[2018-04-22] MEDS ORDERED: ONDANSETRON 4 MG OD TAB ONE (19:10)
[2018-04-22] MEDS: ONDANSETRON 4 MG OD TAB PO SCH (19:12)
[2018-04-22] MEDS: ZOLPIDEM TARTRATE 5 MG TAB PO PRN (22:03)
[2018-04-23] MEDS: METOPROLOL TARTRATE 25 MG TAB PO SCH ×2 (08:07→20:13)
[2018-04-23] MEDS: METHYLCELLULOSE POWDER 454 GM JAR PO SCH ×2 (08:08→20:14)
[2018-04-23] MEDS: PANCREAZE (LIPASE 10,500U) CAP PO SCH ×3 (08:09→16:34)
[2018-04-23] MEDS: ENOXAPARIN INJ 40 MG/0.4 ML SYR SQ SCH (08:10)
[2018-04-23] MEDS: PANTOprazole 40 MG TAB PO SCH ×2 (08:10→20:13)
[2018-04-23] MEDS: CHOLESTYRAMINE LIGHT 4 GM PKT PO SCH ×2 (08:10→20:14)
[2018-04-23] MEDS: SUCRALFATE 1 GM/10 ML UDC PO SCH ×4 (08:10→20:13)
[2018-04-23] MEDS: ONDANSETRON 4 MG OD TAB PO SCH ×2 (13:09→16:34)
--- NOTE | 2018-04-23 15:32 | Hospitalist Progress Note ---
Date of Service April 23, 2018 Assessment & Plan (1) Alcohol withdrawal: Alcoholic hepatitis: Resolved elevated transaminases on presentation, increased alcohol intake Patient has been rescued from significant alcohol withdrawal and DTs requiring life support in the intensive care unit. She is now improved but has physical weakness, persistent nausea and resolving diarrhea Persistent nausea and vomiting patient likely has a component of chronic pancreatitis scheduled antiemetics and continue pancreatic replacement enzymes has helped her nausea Patient has alcohol associated thrombocytopenia this is resolved Previously Dr. Jameson discussed case with GI, unable to determine if patient has cirrhosis or alcohol hepatitis. Even if she has cirrhosis, unlikely to obtain transplant given that she continues to drink. She would need at least 6 months of abstinence from alcohol. She states she is now strongly considering having abstinence from alcohol Coffee ground emesis: Resolved Reported coffee-ground emesis while at [facility] Hemoglobin has remained stable. On remains PPI BID. Hypokalemia: To require supplementation Acute kidney injury: resolved Suicide attempt: 302 is been rescinded Patient does not meet criteria for 302. Patient will be on med/surg Acute metabolic encephalopathy: Heptaic vs alcoholic vs toxic encephalopathy. -Ammonia negative, stopping lactulose to improve diarrhea Alcohol withdrawal/Delirium tremens: patient required intubation for airway protection, extubated on 04/13. Chronic pain -Chronic pain pump -Receiving in the pump 18 mg IV morphine daily and 2.52 mcg fentanyl daily Acute respiratory failure with hypoxia: resolved. Cardiomyopathy: history of reduced LV systolic function. LV function is worse when compared to previous echo. Etiology is unknown, it is likely related to chronic alcohol abuse. Will recommend repeat echo in 6 months Demand ischemia: Cardiology does not believe this to be an active ACS. Subjective Patient feels slightly better with scheduled Zofran with her meals. She is able to tolerate her meals somewhat better than she did yesterday. Her diarrhea is resolving. Review of Systems ROS: well nourished well developed. No double vision blurry vision No problems with speech or swallowing No palpitations, chest pain or pressure No Wheezing or breathing issues Mild abdominal pain resolved nausea vomiting sparse diarrhea No burning urine urine frequency or changes in color No focal joint pain or muscle pain No skin rashes or oral lesions No unusual bruising or bleeding No focused back pain or numbness or loss of strength No changes in memory or confusion Physical Exam Vital Signs (Past 24 Hours): Last Vital Signs Temp 36.8 C 04/23/18 07:16 Pulse 75 04/23/18 07:16 Resp 18 04/23/18 07:16 BP 89/56 L 04/23/18 07:16 Pulse Ox 96 04/23/18 07:16 The patient appeared chronically ill Vital signs as documented. Head exam is unremarkable. normocephalic, atraumatic Neck is without jugular venous distension, thyromegaly, or lymphademopathy Lungs are clear to auscultation and percussion. Cardiac exam reveals Rhythm is regular. First and second heart sounds normal. Abdominal exam reveals no tenderness soft normal bowel sounds, no masses, no organomegaly Extremities are nonedematous and both pedal pulses are present Neurologic exam is A&Ox3, no focal deficits, strength is equal bilateral Psychologically seems neither anxious or depressed Skin is warm Dry without bruises or lesions
[2018-04-23] MEDS ORDERED: LOPERAMIDE HCL 2 MG CAP PO STA ×2 (19:26)
[2018-04-23] MEDS: ZOLPIDEM TARTRATE 5 MG TAB PO PRN (22:05)
[2018-04-24] MEDS: METHYLCELLULOSE POWDER 454 GM JAR PO SCH ×2 (08:20→21:05)
[2018-04-24] MEDS: PANCREAZE (LIPASE 10,500U) CAP PO SCH ×3 (08:22→17:56)
[2018-04-24] MEDS: ONDANSETRON 4 MG OD TAB PO SCH ×3 (08:22→17:56)
[2018-04-24] MEDS: METOPROLOL TARTRATE 25 MG TAB PO SCH ×2 (08:22→21:03)
[2018-04-24] MEDS: PANTOprazole 40 MG TAB PO SCH ×2 (08:22→21:05)
[2018-04-24] MEDS: CHOLESTYRAMINE LIGHT 4 GM PKT PO SCH ×2 (08:22→21:06)
[2018-04-24] MEDS: ENOXAPARIN INJ 40 MG/0.4 ML SYR SQ SCH (08:22)
[2018-04-24] MEDS: SUCRALFATE 1 GM/10 ML UDC PO SCH ×4 (08:22→21:03)
[2018-04-24] MEDS: LOPERAMIDE HCL 2 MG CAP PO PRN ×2 (08:26→18:21)
--- NOTE | 2018-04-24 16:47 | Cardiology Progress Note ---
Date of Service April 24, 2018 Assessment & Plan (1) Cardiomyopathy: She appears to be well compensated. Did not get the impression that she has volume overload or pulmonary vascular congestion. She stated that 2 days ago breathing was worse but better currently. Ideally she would be on both beta-blockade and Naveen inhibition but her blood pressure is relatively low. I would advocate transitioning her metoprolol tartrate to metoprolol succinate. I think 25 milligrams daily would be reasonable dose. In the event she has evidence of pulmonary vascular congestion or breathing difficulty diuretic could be prescribed. She could monitor her weights at home intake diuretic therapy on a p.r.n. basis if necessary. She should follow up with us in an outpatient setting to see if her medical regimen can be intensified and to follow her overall LV function over time. (2) NSTEMI (non-ST elevated myocardial infarction): She had elevated biomarkers at the time of admission. She is quite sick at that time. She does report some symptoms of chest discomfort, but these are quite atypical not anginal in nature. I think we will of better sense of her symptoms when she is more ambulatory. She will continue on beta-blockade. I do not believe she is a good candidate for any additional intervention at this time given questionable compliance going forward. Subjective This morning patient claims to be feeling slightly better. She is able tolerate some of her breakfast. She continues to romo nausea vomiting and diarrhea. She is getting stronger. She states she is transferring independently but still has some difficulty with ambulation. She denied overt breathing difficulty or orthopnea. She does have occasional chest pains which are atypical in character. Physical Exam Vital Signs (Past 24 Hours): Last Vital Signs Temp 37.2 C 04/24/18 15:28 Pulse 98 H 04/24/18 15:28 Resp 18 04/24/18 15:28 BP 97/67 L 04/24/18 15:28 Pulse Ox 96 04/24/18 15:28 Physical Exam: She is alert and oriented x3. Mood affect appear normal. She answered all questions appropriately. HEENT: Sclerae are anicteric. Pupils are equal and reactive to light and accommodation. Extraocular movements were intact. Neuro: Cranial nerves intact Neck: Examination of the submandibular region did not reveal any significant lymphadenopathy. Carotids are palpable bilaterally and free of bruits on auscultation. There was no evidence of jugular venous distention. The thyroid was not enlarged. Lungs: Occasional crackle in the base bilaterally. No expiratory wheezing. She has normal respiratory effort without use of accessory muscles. There is normal pulmonary excursion. Cardiac: The rhythm was regular. S1 and S2 were normal. There are no murmurs on examination. The PMI was not markedly displaced on palpation. Abdomen: The abdomen was soft and nontender. Extremities: Patient has bilateral radial pulses that are equal in intensity. There is no evidence cyanosis or clubbing. There was no evidence of significant peripheral edema bilaterally. Skin: There are no rashes noted on examination today. Results & Data Laboratory Results Abnormal Lab Results 04/23/18 04/23/18 04/23/18 17:07 17:50 20:13 POC Glucose 82 93 Stl C. diff Tox B Gene Neg C.diff Toxin B 04/24/18 04/24/18 07:38 11:31 POC Glucose 97 79 Stl C. diff Tox B Gene (1) Cardiomyopathy Cardiomyopathy type: alcoholic Qualified Code(s): I42.6 - Alcoholic cardiomyopathy
--- NOTE | 2018-04-24 19:46 | Hospitalist Progress Note ---
Date of Service April 24, 2018 Assessment & Plan (1) Alcohol withdrawal: Alcoholic hepatitis: Resolved elevated transaminases on presentation, increased alcohol intake Patient has been rescued from significant alcohol withdrawal and DTs requiring life support in the intensive care unit. She is now improved but has physical weakness, persistent nausea and resolving diarrhea Patient was diagnosed with chronic pancreatitis by previous provider. This may explain the persistent nausea, however, patient continues to have diarrhea despite enzymes. Will continue to monitor. Immodium does appear to help her diarrhea. Patient has alcohol associated thrombocytopenia this is resolved Previously Dr. Jameson discussed case with GI, unable to determine if patient has cirrhosis or alcohol hepatitis. Even if she has cirrhosis, unlikely to obtain transplant given that she continues to drink. She would need at least 6 months of abstinence from alcohol. She states she is now strongly considering having abstinence from alcohol Coffee ground emesis: Resolved Reported coffee-ground emesis while at [facility] Hemoglobin has remained stable. On remains PPI BID. Hypokalemia: To require supplementation Acute kidney injury: resolved Suicide attempt: 302 is been rescinded Patient does not meet criteria for 302. Patient will be on med/surg Acute metabolic encephalopathy: Heptaic vs alcoholic vs toxic encephalopathy. -Ammonia negative, stopping lactulose to improve diarrhea Alcohol withdrawal/Delirium tremens: patient required intubation for airway protection, extubated on 04/13. Chronic pain -Chronic pain pump -Receiving in the pump 18 mg IV morphine daily and 2.52 mcg fentanyl daily Acute respiratory failure with hypoxia: resolved. Cardiomyopathy: history of reduced LV systolic function. LV function is worse when compared to previous echo. Etiology is unknown, it is likely related to chronic alcohol abuse. Will recommend repeat echo in 6 months Demand ischemia: Cardiology does not believe this to be an active ACS. Patient is trying to be more active. Plan is to discharge once nausea has improved. Pedning placement to SNF. Spent 35 minutes in management of patient. This included reviewing chart, discussing case with patient. Subjective Patient reports feeling somewhat better. She continues to complain of nausea. However she reports that she has not thrown up today. She also reports having episodes of loose stools yesterday. She has not had an episode today though. Physical Exam Vital Signs (Past 24 Hours): Last Vital Signs Temp 37.2 C 04/24/18 15:28 Pulse 98 H 04/24/18 15:28 Resp 18 04/24/18 15:28 BP 97/67 L 04/24/18 15:28 Pulse Ox 96 04/24/18 15:28 Physical Exam: The patient appeared chronically ill, she is in no acute distress. Vital signs as documented. Head exam is unremarkable. normocephalic, atraumatic Neck is without jugular venous distension, thyromegaly, or lymphademopathy Lungs are clear to auscultation and percussion. Cardiac exam reveals Rhythm is regular. First and second heart sounds normal. Abdominal exam reveals no tenderness soft normal bowel sounds, no masses, no organomegaly Extremities are nonedematous and both pedal pulses are present Neurologic exam is A&Ox3, no focal deficits, strength is equal bilateral Psychologically seems neither anxious or depressed Skin is warm Dry without bruises or lesions
[2018-04-24] MEDS: ZOLPIDEM TARTRATE 5 MG TAB PO PRN (22:23)
[2018-04-25] MEDS: LOPERAMIDE HCL 2 MG CAP PO PRN ×2 (01:01→16:38)
[2018-04-25] MEDS: PANCREAZE (LIPASE 10,500U) CAP PO SCH ×3 (09:00→16:38)
[2018-04-25] MEDS: PANTOprazole 40 MG TAB PO SCH ×2 (09:00→20:54)
[2018-04-25] MEDS: METOPROLOL TARTRATE 25 MG TAB PO SCH ×2 (09:00→20:51)
[2018-04-25] MEDS: ENOXAPARIN INJ 40 MG/0.4 ML SYR SQ SCH (09:01)
[2018-04-25] MEDS: ONDANSETRON 4 MG OD TAB PO SCH ×3 (09:01→16:38)
[2018-04-25] MEDS: SUCRALFATE 1 GM/10 ML UDC PO SCH ×4 (09:02→20:53)
[2018-04-25] MEDS: METHYLCELLULOSE POWDER 454 GM JAR PO SCH ×2 (09:03→20:54)
[2018-04-25 09:23] LABS: Hematocrit (blood only) 37.3 % (37-47); Hemoglobin 11.4 g/dL (12.0-16.0); Mean Corpuscular Hgb Conc 30.6 g/dL (32-36); Mean Corpuscular Volume 99.7 fL (80-100); Mean Platelet Volume 9.9 fL (7.4-10.4); Platelet Count 167 K/uL (130-400); RDW Standard Deviation 69.1 fL (36.4-46.3); Red Blood Count 3.74 M/uL (4.2-5.4); White Blood Count 2.96 K/uL (4.8-10.8)
--- NOTE | 2018-04-25 10:08 | Hospitalist Progress Note ---
Date of Service April 25, 2018 Assessment & Plan (1) Alcohol withdrawal: Alcoholic hepatitis: Resolved elevated transaminases on presentation, increased alcohol intake Patient has been rescued from significant alcohol withdrawal and DTs requiring life support in the intensive care unit. She is now improved but has physical weakness, persistent nausea and resolving diarrhea Patient was diagnosed with chronic pancreatitis by previous provider. This may explain the persistent nausea, however, patient continues to have diarrhea despite enzymes. But on 04/25, it appears patient is not having the diarrhea that she was previously reporting as she has not been able to show her stools to the nurses or providers today. Will continue to monitor. Immodium does appear to help her diarrhea. Patient has alcohol associated thrombocytopenia this is resolved Previously Dr. Jameson discussed case with GI, unable to determine if patient has cirrhosis or alcohol hepatitis. Even if she has cirrhosis, unlikely to obtain transplant given that she continues to drink. She would need at least 6 months of abstinence from alcohol. She states she is now strongly considering having abstinence from alcohol Coffee ground emesis: Resolved Reported coffee-ground emesis while at [facility] Hemoglobin has remained stable. On remains PPI BID. Hypokalemia: To require supplementation Acute kidney injury: resolved Suicide attempt: 302 is been rescinded Patient does not meet criteria for 302. Patient will be on med/surg Acute metabolic encephalopathy: Heptaic vs alcoholic vs toxic encephalopathy. -Ammonia negative, stopping lactulose to improve diarrhea Alcohol withdrawal/Delirium tremens: patient required intubation for airway protection, extubated on 04/13. Chronic pain -Chronic pain pump -Receiving in the pump 18 mg IV morphine daily and 2.52 mcg fentanyl daily Acute respiratory failure with hypoxia: resolved. Cardiomyopathy: history of reduced LV systolic function. LV function is worse when compared to previous echo. Etiology is unknown, it is likely related to chronic alcohol abuse. Will recommend repeat echo in 6 months Demand ischemia: Cardiology does not believe this to be an active ACS. Patient is trying to be more active. Plan is to discharge once nausea has improved. Pending placement to SNF. Spent 25 minutes in management of patient. Subjective Patient reports she continues to have diarrhea, and had about 6 episodes overnight. However nurses state only one time. We explained to patient that she needs to show us her stool. She has not gone this AM. She is also complaining of palpatations, however her HR is in the 80s and regular. Physical Exam Vital Signs (Past 24 Hours): Last Vital Signs Temp 36.8 C 04/25/18 08:13 Pulse 75 04/25/18 08:13 Resp 15 04/25/18 08:13 BP 93/60 L 04/25/18 08:13 Pulse Ox 96 04/25/18 08:13 Physical Exam: The patient appeared chronically ill, she is in no acute distress. Vital signs as documented. Head exam is unremarkable. normocephalic, atraumatic Neck is without jugular venous distension, thyromegaly, or lymphademopathy Lungs are clear to auscultation and percussion. Cardiac exam reveals Rhythm is regular. First and second heart sounds normal. Abdominal exam reveals no tenderness soft normal bowel sounds, no masses, no organomegaly Extremities are nonedematous and both pedal pulses are present Neurologic exam is A&Ox3, no focal deficits, strength is equal bilateral Psychologically seems neither anxious or depressed Skin is warm Dry without bruises or lesions
[2018-04-25 10:17] LABS: BUN Creatinine Ratio 17.3 (10-20); Calcium 7.7 mg/dl (8.5-10.1); Creatinine Clr Calc Pharmacy 111.3 ml/min; Est GFR (African American) 125.5; Est GFR (Non-African American) 108.3; Magnesium 1.8 mg/dl (1.8-2.4)
[2018-04-25] MEDS: CHOLESTYRAMINE LIGHT 4 GM PKT PO SCH ×2 (13:13→20:55)
[2018-04-25] MEDS: ZOLPIDEM TARTRATE 5 MG TAB PO PRN (22:13)
[2018-04-26] MEDS: LOPERAMIDE HCL 2 MG CAP PO PRN ×2 (00:36→05:35)
[2018-04-26] MEDS: PANCREAZE (LIPASE 10,500U) CAP PO SCH ×2 (08:25→11:26)
[2018-04-26] MEDS: METOPROLOL TARTRATE 25 MG TAB PO SCH ×2 (08:25→08:28)
[2018-04-26] MEDS: PANTOprazole 40 MG TAB PO SCH (08:25)
[2018-04-26] MEDS: ONDANSETRON 4 MG OD TAB PO SCH ×2 (08:25→11:26)
[2018-04-26] MEDS: METHYLCELLULOSE POWDER 454 GM JAR PO SCH (08:26)
[2018-04-26] MEDS: ENOXAPARIN INJ 40 MG/0.4 ML SYR SQ SCH ×2 (08:26→09:03)
[2018-04-26] MEDS: SUCRALFATE 1 GM/10 ML UDC PO SCH (08:26)
[2018-04-26] MEDS: CHOLESTYRAMINE LIGHT 4 GM PKT PO SCH (11:02)
--- NOTE | 2018-05-04 15:21 | Discharge Summary ---
Date of Service April 26, 2018 Admission HPI Per Admitting Provider Patient is a transfer from [facility] where she presented after arrangements are being made for her to have a 302. The family pursue to 3 or 2 because the patient was attempting to drink alcohol to the extent to kill herself. She not been eating or drinking over the last few days. The patient was brought to [place] [facility] where she was found to have marked acidosis, elevation of LFTs consistent with alcoholic hepatitis, pancreatitis, she vomited coffee-ground emesis, and she had elevation of her troponin without acute EKG changes. In the ER she is stabilized with volume of crystalloid, was given bica rbonate was transferred to our facility. Upon arrival to our facility she is awake alert and oriented her vital signs were stable she is placed in the ICU due to the potential of catastrophe occurring given her multiple organ systems being involved. Principal Diagnosis Alcohol Withdrawal Discharge Exam The patient appeared chronically ill, she is in no acute distress. Vital signs as documented. Head exam is unremarkable. normocephalic, atraumatic Neck is without jugular venous distension, thyromegaly, or lymphademopathy Lungs are clear to auscultation and percussion. Cardiac exam reveals Rhythm is regular. First and second heart sounds normal. Abdominal exam reveals no tenderness soft normal bowel sounds, no masses, no organomegaly Extremities are nonedematous and both pedal pulses are present Neurologic exam is A&Ox3, no focal deficits, strength is equal bilateral Psychologically seems neither anxious or depressed Skin is warm Dry without bruises or lesions Discharge Data Allergies Allergy/AdvReac Type Severity Reaction Status Date / Time clarithromycin Allergy Intermediate HIVES Verified 08/03/17 04:46 aspirin Allergy Mild Verified 08/03/17 04:46 tramadol Allergy Mild Verified 08/03/17 04:46 oxaprozin Allergy Unknown Verified 08/03/17 04:46 Consultations 04/09/18 10:51 Consult Case Management - Discharge Planning Routine 04/09/18 10:52 Consult Director Public Policy Routine 04/09/18 10:56 Consult Psychiatry Routine 04/09/18 11:14 Consult Pain Management Routine 04/10/18 10:10 Consult Gastroenterology Stat 04/10/18 15:41 Consult Cardiology Routine Ordered Studies 04/10/18 07:38 CT abdomen wo/w con Urgent 04/10/18 11:22 MR MRCP Stat 04/12/18 07:03 CT head/brain wo con Stat 04/12/18 07:08 CT angio chest PE protocol Stat 04/21/18 08:55 CT abd pelvis oral con only Routine Hospital Course (1) Alcohol withdrawal: Alcoholic hepatitis: Resolved elevated transaminases on presentation, increased alcohol intake Patient has been rescued from significant alcohol withdrawal and DTs requiring life support in the intensive care unit. She is now improved but has physical weakness, persistent nausea and resolving diarrhea Patient was diagnosed with chronic pancreatitis by previous provider. This may explain the persistent nausea, however, patient continues to have diarrhea despite enzymes. But on 04/25, it appears patient is not having the diarrhea that she was previously reporting as she has not been able to show her stools to the nurses or providers today. Will continue to monitor. Immodium does appear to help her diarrhea. Patient has alcohol associated thrombocytopenia this is resolved Previously Dr. Jameson discussed case with GI, unable to determine if patient has cirrhosis or alcohol hepatitis. Even if she has cirrhosis, unlikely to obtain transplant given that she continues to drink. She would need at least 6 months of abstinence from alcohol. She states she is now strongly considering having abstinence from alcohol Coffee ground emesis: Resolved Reported coffee-ground emesis while at [facility] Hemoglobin has remained stable. On remains PPI BID. Hypokalemia: To require supplementation Acute kidney injury: resolved Suicide attempt: 302 is been rescinded Patient does not meet criteria for 302. Acute metabolic encephalopathy: Hepatic vs alcoholic vs toxic encephalopathy. -Ammonia negative, stopping lactulose to improve diarrhea Alcohol withdrawal/Delirium tremens: patient required intubation for airway protection, extubated on 04/13. Has not been confused since. Chronic pain -Chronic pain pump -Receiving in the pump 18 mg IV morphine daily and 2.52 mcg fentanyl daily Acute respiratory failure with hypoxia: resolved. Cardiomyopathy: history of reduced LV systolic function. LV function is worse when compared to previous echo. Etiology is unknown, it is likely related to chronic alcohol abuse. Will recommend repeat echo in 6 months Demand ischemia: Cardiology does not believe this to be an active ACS. Discharge to SNF. Total Time Total Time Spent Total Time Spent (In Minutes): 31 Total Time Includes: Examination of the Patient, Discharge Planning and Medication Reconciliation Discharge Plan Discharge Items Patient Disposition: Transfer Care Home Fac Reason For Visit: UGIB, ACUTE KIDNEY INJURY, NSTEMI Discharge Diagnosis: Acute kidney injury, NSTEMI Discharge Goals: Decrease discomfort Activity: Resume your previous activity Non-emergency contact: Primary Care Provider Call non-emergency contact if: you have any medication questions Follow-up/Referrals: Kevin Vera [Primary Care Provider] - 04/24/18 11:00 am (Please, follow up at Dr. Vera's office in [place] on TuesdayApril 24 at 11:00 am. *If you need to change this appointment, call the office at [phone].) Diet: Full liquid Diet Comment: ADVANCE DIET TOLERATED Addtl Provider Instructions: Followup with PCP in 1-2 weeks. Do not drink alcohol when taking ambien. Prescriptions: New metoprolol tartrate 25 mg Tablet 12.5 mg PO BID Qty: 30 RF: 0 potassium chloride [Klor-Con M20] 20 mEq Tablet,Er Particles/Crystals 20 meq PO BID Qty: 14 RF: 0 prednisone 10 mg Tablet 10 mg PO DAILY Qty: 30 RF: 0 thiamine HCl (vitamin B1) [Vitamin B-1] 100 mg Tablet 100 mg PO DAILY Qty: 30 RF: 0 magnesium oxide 400 mg (241.3 mg magnesium) Tablet 400 mg PO BID Qty: 14 RF: 0 pantoprazole 40 mg Tablet,Delayed Release (Dr/Ec) 40 mg PO BID Qty: 60 RF: 0 folic acid 1 mg Tablet 1 mg PO DAILY Qty: 30 RF: 0 zolpidem 5 mg Tablet 5 mg PO HS PRN (Reason: INSOMNIA) Qty: 7 RF: 0 loperamide 2 mg Capsule 2 mg PO QID PRN (Reason: constipation) Qty: 30 RF: 0 Pancreaze 10,500-35,500- 61,500 unit Capsule,Delayed Release(Dr/Ec) 1 cap PO AC Qty: 90 RF: 0 Cholestyramine Light 4 gram Powder In Packet 4 g PO DAILY Qty: 30 RF: 0 Continued MISOPROSTOL (CYTOTEC) 100 MCG tablet 100 mg PO QID Qty: 0 RF: 0 Pantoprazole (Pantoprazole Sodium) 40 MG tablet 40 mg PO BID Qty: 0 RF: 0 SUCRALFATE (CARAFATE) 1 GM/10 ML MICHAEL 10 ml PO QID PRN (Reason: abdominal pain) 30 Days Qty: 1200 RF: 0 Discontinued Folic Acid 1 MG tablet 1 mg PO QD Qty: 0 RF: 0 MIRTAZAPINE (REMERON) 15 MG tablet 15 mg PO HS Qty: 0 RF: 0 Clindamycin HCl 1 HOMEPACK EACH 2 cap PO Q6 Qty: 0 RF: 0 Fentanyl 75 MCG TRANSDERM SYS 75 mcg Transdermal Q72H Qty: 0 RF: 0 Hydrocodone/Acetaminophen 7.5MG/325MG ([place] 7.5MG/325MG) tablet 1 tab PO Q6 PRN (Reason: Pain) Qty: 0 RF: 0 Hydroxyzine HCl 25 MG tablet 25 mg PO Q6 PRN (Reason: Anxiety) Qty: 0 RF: 0 Stand-Alone Forms: [facility] Discharge Orders: Discharge Order (Routine); Ordered 04/26/18 Ordered By: Khoi Chi Skilled Items Patient informed of condition?: Yes DNR: No Discharge Level of Care: Skilled Communicable Disease: No Discharge Prognosis: Stable Admission Data Admit Date/Time: 04/09/18 10:17 Attending Provider: Khoi Chi Admit Provider: Bob Varela Primary Care Provider: Kevin Vera Other Providers: Ruth Ann Remy ; Anna Jarquin ; Chandler Baez ; Noble Vidal ; Peter Blakely ; Khoi Chi Service: Medical Other Interventions: Discharge Summary Assessment (RN) Last Done: 04/26/18 12:11 DC Date/Time DO NOT enter until pt leaves facility: 04/26/18 13:00
== END 2018-04-26 13:00 | DRG 987 ==
LOC: 1E 10:17 → SUATTDRO 10:17 → 4W 04-14 17:39

== ENCOUNTER 2018-06-22 18:54 | Inpatient (IN) ==
--- OUTSIDE RECORDS SUMMARY | 2018-06-22 18:59 | External Medical Summary | Continuity of Care Document ---
:1965 Author Name Daisy Hall Address Unavailable Unavailable , Care Team Providers Name Role Phone Rupinder Howell III, M.D. Unavailable [email or web address] [place], [place] Sloane ROSE Unavailable Unavailable Unavailable Unavailable Unavailable Problems Anxiety (300.00) (F41.9) Vitamin D deficiency (268.9) (E55.9) Depression (311) (F32.9) Peptic ulcer disease (533.90) (K27.9) Postsurgical malabsorption (579.3) (K91.2) Severe protein-energy malnutrition (262) (E43) Nausea with vomiting (787.01) (R11.2) Gastric outlet obstruction (537.0) (K31.1) Feeding difficulties (783.3) (R63.3) Diarrhea (787.91) (R19.7) Abnormal weight loss (783.21) (R63.4) Abdominal pain, epigastric (789.06) (R10.13) Allergies and Adverse Reactions aspirin (Allergy) tramadol (Allergy) Medications ALPRAZolam 0.25 MG Oral Tablet; TAKE 1 TABLET EVERY 12 HOURS NEEDED. Start: 18-Mar-2014 Refills: 0 Baclofen 10 MG Oral Tablet; TAKE 1 TABLE T 3 TIMES DAILY NEEDED FOR MUSCLE SPASM. Start: 27-Nov-2014 Refills: 0 DULoxetine HCl - 30 MG Oral Capsule Delayed Release Particle s; 1capsule po QAM Start: 27-Nov-2014 Refills: 0 [place] 5-325 MG Oral Tablet; TAKE 1 TABLE T EVERY 4 TO 6 HOURS NEEDED FOR PAIN. Start: 27-Nov-2014 Refills: 0 Omeprazole 20 MG Oral Capsule Delayed Release; TAKE 1 CAPSUL E DAILY. Start: 27-Nov-2014 Quantity: 30 Refills: 5 Plus/Iron 27-1 MG TABS; TAKE 1 TABLET DAILY. Start: 27-Nov-2014 Refills: 0 Loperamide HCl - 2 MG Oral Tablet; 2 po Q6 hours prn diarrhe a. Start: 27-Nov-2014 Refills: 0 Ergocalciferol 28371 UNIT Oral Capsule; TAKE 1 CAPSULE [place] y Start: 27-Nov-2014 Refills: 0 Sucralfate 1 GM/10ML SUSP; 1GM po before meals and a HS Start: 28-Mar-2014 Refills: 0 Procedures History of Cholecystectomy Status: Compl eted History of Gastric Surgery Status: Compl eted History of Hip Surgery Left Status: Comp leted History of Hysterectomy Status: Complete d History of ERCP With Endoscopic Sphincterotomy Status: Completed Immunizations Immunizations not documented Family History Mother Family history of Aneurysm (442.9) (I72.9) Status: Active Social History - Smoking Status Never smoker Plan of Treatment Planned Observations Planned Goals not documented Results No Known Results Results not documented Encounters Appointment; Jose Alberto Blakely M.D. 29-Jul-2016 10:15 Encounter Diagnosis: Problem not documented Appointment; Clint Donnelly M.D. 24-Jun-2016 13:00 Encounter Diagnosis: Problem not documented
[2018-06-22] MEDS ORDERED: MULTI-VITAMIN INFUSION 10 ML, THIAMINE HCL 100 MG, FOLIC ACID 1 MG in SODIUM CHLORIDE 0... IV STA (19:28)
[2018-06-22] MEDS ORDERED: SODIUM CHLORIDE 0.9% 1000ML 2,000 ML IV SCH (19:30)
--- NOTE | 2018-06-22 19:40 | XRay Report ---
XR chest 1V portable CLINICAL HISTORY: sob dyspnea COMPARISON STUDY: 04/14/2018 FINDINGS: The bones soft tissues and hemidiaphragms are normal. The cardiomediastinal silhouette is n ormal. The lungs are clear. The pulmonary vasculature is normal. IMPRESSION: Negative chest. The above report was generated using voice recognition software. It may contain grammatical, syntax or spelling errors. Electronically signed by: Mj Smith M.D. 06/22/2018 7:39 PM
[2018-06-22 19:49] LABS: Hematocrit (blood only) 41.6 % (37-47); Hemoglobin 12.9 g/dL (12.0-16.0); Mean Corpuscular Volume 90.6 fL (80-100); Mean Platelet Volume 9.1 fL (7.4-10.4); Nucleated RBC # (auto) 0.02 K/uL (0-0); Nucleated RBC % (auto) 0.2 %; Platelet Count 208 K/uL (130-400); RDW Coefficient of Variation 17.7 % (11.5-14.5); RDW Standard Deviation 59.2 fL (36.4-46.3); Red Blood Count 4.59 M/uL (4.2-5.4); White Blood Count 10.71 K/uL (4.8-10.8)
[2018-06-22 19:54] LABS: Appearance Urine Clear (Clear); Bacteria Urine Automated Negative (Negative); Bilirubin Urine Negative (Negative); Blood Urine Negative (Negative); Color Urine Yellow; Glucose Urine UA Negative (Negative); Ketones Urine 2+ (Negative); Leukocyte Esterase Urine Negative (Negative); Nitrite Urine Negative (Negative); Protein Urine 1+ (Negative); RBC Urine Automated 0-4 /hpf (0-4); Specific Gravity Urine 1.016 (1.000-1.030); Urobilinogen Urine Negative (Negative)
[2018-06-22 20:12] LABS: Amphetamines+Metham, Urine Neg (Neg); Barbiturates, Urine Neg (Neg); Benzodiazepine, Urine Neg (Neg); Cocaine, Urine Neg (Neg); MDMA (Ecstacy), Urine Neg (Neg); Methadone, Urine Neg (Neg); Opiate, Urine Neg (Neg); Phencyclidine, Urine Neg (Neg)
[2018-06-22 20:35] LABS: Alanine Aminotransferase 596 U/L (12-78); Albumin Level 3.8 gm/dl (3.4-5.0); BUN Creatinine Ratio 9.7 (10-20); Blood Urea Nitrogen 34 mg/dl (7-18); Calcium 7.3 mg/dl (8.5-10.1); Chloride 97 mmol/L (98-107); Est GFR (African American) 16.3; Glucose 62 mg/dl (70-99); Sodium 139 mmol/L (136-145)
[2018-06-22 20:37] LABS: Carbon Dioxide < 5 mmol/L (21-32)
[2018-06-22 20:40] LABS: Basophils # (auto) 0.01 K/uL (0-0.2); Basophils % (auto) 0.1 %; Echinocytes 1+; Immature Granulocytes # (auto) 0.04 K/uL (0.00-0.02); Immature Granulocytes % (auto) 0.4 %; Lymphocytes % (auto) 5.6 %; Monocytes # (auto) 1.03 K/uL (0.11-0.59); Monocytes % (auto) 9.6 %; Neutrophils # (auto) 9.03 K/uL (1.4-6.5); Neutrophils % (auto) 84.3 %; Toxic Vacuolation 1+
[2018-06-22 20:43] LABS: Alkaline Phosphatase 224 U/L (45-117); Bilirubin,Total 2.7 mg/dl (0.2-1); Globulin 3.8 gm/dl (2.5-4.0); Phosphorus 10.4 mg/dl (2.5-4.9); Total Protein 7.6 gm/dl (6.4-8.2)
[2018-06-22] MEDS ORDERED: THIAMINE HCL 100 MG in SYRINGE 9 ML IV STA (21:49)
[2018-06-22] MEDS ORDERED: DEXTROSE 50% 50 ML SYRINGE IV ONE (21:49)
[2018-06-22] MEDS ORDERED: D5W AND NSS 1,000 ML IV STA (21:51)
--- NOTE | 2018-06-22 21:53 | XRay Report ---
XR chest 1V portable CLINICAL HISTORY: central line placement tube position COMPARISON STUDY: 06/22/2018 FINDINGS: Central catheter placed in the right atrium. This should be pulled back. No evidence for pn eumothorax. Diaphragms are smooth. IMPRESSION: Central catheter placed in the right atrium. 2. This should be pulled back approximately 5 cm. 3. No evidence for pneumothorax. The above report was generated using voice recognition software. It may contain grammatical, syntax or spelling errors. Electronically signed by: Mj Smith M.D. 06/22/2018 9:52 PM
[2018-06-22] MEDS ORDERED: ONDANSETRON INJ 2 MG/ML 2 ML VIAL ONE (22:00)
[2018-06-22 22:01] LABS: Base Excess VBG -25.8 mEq/L; Oxygen Saturation VBG 86.6 %; pH VBG 6.96 (7.36-7.41)
[2018-06-22] MEDS ORDERED: PIPERACILLIN/TAZOBACTAM 4.5 GM/120 ML BAG IV ONE (22:01)
[2018-06-22] MEDS ORDERED: VANCOMYCIN CONSULT ACTIVE PRN (22:01)
[2018-06-22] MEDS ORDERED: VANCOMYCIN HCL 1,250 MG in SODIUM CHLORIDE 0.9% 500 ML IV ONE (22:01)
[2018-06-22 22:05] LABS: INR 1.2 (0.9-1.1); Prothrombin Time 12.2 Seconds (9.0-12.0)
--- NOTE | 2018-06-22 22:08 | Emergency Department Note ---
Entered by Kyleigh Johnson acting as a scribe for Glen Alves MD History of Present Illness General Chief complaint: Mental Health Evaluation Time Seen by Provider: 06/22/18 19:14 Source: patient and EMS History of Present Illness Onset (ago): hour(s) less than 1 Location: head (Alcohol intoxication) Severity: similar to prior episodes Pain Consistency: + other (Episode) Quality: + other (Alcohol intoxication) Exacerbated By: + other (Alcohol) Associated symptoms: + confusion and + other (Combative) Treatments prior to arrival: other (4L supplemental oxygen via nasal cannula) The patient is a 53 year old female presenting to the Emergency Department complaining of an episode of alcohol intoxication starting less than 1 hour ago. EMS reports that the patient drank a bottle of vodka [employer]ELD ADJUSTER. They state that the patient was combative and confused, grabbing for objects in the air that were not actually there. They explain that the patients oxygen saturation dropped to 89% on room air so they put the patient on 4L of supplemental oxygen via nasal cannula FI[employer] ADJUSTER. They add that the patient had a blood glucose of 169 FIELD ADJUSTER. EMS reports that the patient has a history of chronic alcohol abuse with Gabapentin. They state that they found the patients medication but that Gabapentin was not included in the medication bag. They explain that the police were initially called to the patients home on a [id number] petition. The patient reports that she did drink vodka today. She states I just want to go to sleep. Home Medications Home Medications Medication Instructions Recorded Confirmed Type Unobtainable 06/22/18 06/22/18 History Allergies Allergy/AdvReac Type Severity Reaction Status Date / Time clarithromycin Allergy Intermediate HIVES Verified 08/03/17 04:46 aspirin Allergy Mild Verified 08/03/17 04:46 tramadol Allergy Mild Verified 08/03/17 04:46 oxaprozin Allergy Unknown Verified 08/03/17 04:46 Past Med/Surg History Medical History History of hysterectomy Lumbago (Chronic) Multiple sclerosis (Chronic) Alcohol abuse Factitious disorder Opiate addiction Presence of intrathecal pump containing morphine 0.189mg/day and fentanyl 2.52mcg/day miminimal rate Sedative abuse Surgical History History of Jeffy-en-Y gastric bypass History of cholecystectomy History of open reduction and internal fixation (ORIF) procedure Family History Other Aneurysm Cancer Stroke Social History Preferred Language: Maltese Communication Ability: Effective Beliefs That Will Affect Care: None Current Living Situation: Alone Other Information That Helps Us Care for You: No Feels Safe at Home: Yes Safety Concerns: Feels Safe At This Time Smoking Status: Never smoker Hx Alcohol Use: Yes Alcohol type: beer, wine and hard liquor Hx Substance Use: No Review of Systems See HPI for pertinent positives & negatives. and A total of 10 systems reviewed and were otherwise negative Physical Exam Vital Signs Vital Signs - 24 hr 06/22/18 19:00 06/22/18 19:05 06/22/18 19:06 Temperature 37.9 C H Temperature Source Rectal Sepsis Recent Fever Within 48 Hours No Sepsis New/Unexplained Change in Mental Status No Sepsis Action Taken by Nursing No Action Required Pulse Rate 145 H 130 H 128 H Pulse Rate [Bilateral Apical] Pulse Rate from SpO2 Sensor Pulse Rhythm Regular Pulse Rhythm [Bilateral Apical] Pulse Strength Normal Pulse Strength [Bilateral Apical] Respiratory Rate 54 H 33 H 33 H Respiratory Effort / Characteristics Spontaneous Accessory Muscle Use Labored Respiratory Depth Normal Respiratory Pattern Regular Rapid/Shallow Blood Pressure 83/45 L Blood Pressure [Right Arm] Blood Pressure Mean 57 20 Blood Pressure Mean [Right Arm] Blood Pressure Position Lying Blood Pressure Position [Right Arm] Pulse Oximetry Pulse Oximetry [Left Index Finger] Oxygen Delivery Method Non-rebreather Oxygen Delivery Method [Left Index Finger] Oxygen Flow Rate 15 06/22/18 19:08 06/22/18 19:10 06/22/18 19:20 Temperature Temperature Source Sepsis Recent Fever Within 48 Hours Sepsis New/Unexplained Change in Mental Status Sepsis Action Taken by Nursing Pulse Rate 123 H 124 H 123 H Pulse Rate [Bilateral Apical] Pulse Rate from SpO2 Sensor Pulse Rhythm Pulse Rhythm [Bilateral Apical] Pulse Strength Pulse Strength [Bilateral Apical] Respiratory Rate 34 H 33 H 26 H Respiratory Effort / Characteristics Respiratory Depth Respiratory Pattern Blood Pressure 83/45 L Blood Pressure [Right Arm] Blood Pressure Mean 57 Blood Pressure Mean [Right Arm] Blood Pressure Position Blood Pressure Position [Right Arm] Pulse Oximetry Pulse Oximetry [Left Index Finger] Oxygen Delivery Method Oxygen Delivery Method [Left Index Finger] Oxygen Flow Rate 06/22/18 19:30 06/22/18 19:40 06/22/18 19:50 Temperature Temperature Source Sepsis Recent Fever Within 48 Hours Sepsis New/Unexplained Change in Mental Status Sepsis Action Taken by Nursing Pulse Rate 118 H 118 H 118 H Pulse Rate [Bilateral Apical] Pulse Rate from SpO2 Sensor 156 H Pulse Rhythm Pulse Rhythm [Bilateral Apical] Pulse Strength Pulse Strength [Bilateral Apical] Respiratory Rate 36 H 35 H 34 H Respiratory Effort / Characteristics Respiratory Depth Respiratory Pattern Blood Pressure Blood Pressure [Right Arm] Blood Pressure Mean Blood Pressure Mean [Right Arm] Blood Pressure Position Blood Pressure Position [Right Arm] Pulse Oximetry 70 L Pulse Oximetry [Left Index Finger] Oxygen Delivery Method Oxygen Delivery Method [Left Index Finger] Oxygen Flow Rate 06/22/18 19:59 06/22/18 20:00 06/22/18 20:01 Temperature Temperature Source Sepsis Recent Fever Within 48 Hours Sepsis New/Unexplained Change in Mental Status Sepsis Action Taken by Nursing Pulse Rate 140 H 148 H Pulse Rate [Bilateral Apical] 153 H Pulse Rate from SpO2 Sensor Pulse Rhythm Pulse Rhythm [Bilateral Apical] Regular Pulse Strength Pulse Strength [Bilateral Apical] Normal Respiratory Rate 46 H 27 H 20 Respiratory Effort / Characteristics Spontaneous Accessory Muscle Use Labored Respiratory Depth Normal Respiratory Pattern Regular Rapid/Shallow Blood Pressure Blood Pressure [Right Arm] 62/38 L Blood Pressure Mean 35 Blood Pressure Mean [Right Arm] 46 Blood Pressure Position Blood Pressure Position [Right Arm] Lying Pulse Oximetry Pulse Oximetry [Left Index Finger] Oxygen Delivery Method Non-rebreather Oxygen Delivery Method [Left Index Finger] Oxygen Flow Rate 15 06/22/18 20:02 06/22/18 20:10 06/22/18 20:29 Temperature Temperature Source Sepsis Recent Fever Within 48 Hours Sepsis New/Unexplained Change in Mental Status Sepsis Action Taken by Nursing Pulse Rate 123 H 122 H 121 H Pulse Rate [Bilateral Apical] 134 H Pulse Rate from SpO2 Sensor 121 H Pulse Rhythm Pulse Rhythm [Bilateral Apical] Regular Pulse Strength Pulse Strength [Bilateral Apical] Normal Respiratory Rate 46 H 27 H Respiratory Effort / Characteristics Spontaneous Accessory Muscle Use Labored Respiratory Depth Normal Respiratory Pattern Regular Rapid/Shallow Blood Pressure 62/38 L Blood Pressure [Right Arm] 62/38 L Blood Pressure Mean 46 Blood Pressure Mean [Right Arm] 46 Blood Pressure Position Blood Pressure Position [Right Arm] Sitting Pulse Oximetry 100 100 Pulse Oximetry [Left Index Finger] Oxygen Delivery Method Non-rebreather Oxygen Delivery Method [Left Index Finger] Oxygen Flow Rate 15 06/22/18 20:30 06/22/18 20:31 06/22/18 20:40 Temperature Temperature Source Sepsis Recent Fever Within 48 Hours Sepsis New/Unexplained Change in Mental Status Sepsis Action Taken by Nursing Pulse Rate 123 H 123 H 118 H Pulse Rate [Bilateral Apical] 122 H Pulse Rate from SpO2 Sensor 123 H 123 H 117 H Pulse Rhythm Pulse Rhythm [Bilateral Apical] Regular Pulse Strength Pulse Strength [Bilateral Apical] Normal Respiratory Rate 42 H Respiratory Effort / Characteristics Spontaneous Accessory Muscle Use Labored Respiratory Depth Normal Respiratory Pattern Rapid/Shallow Blood Pressure 61/44 L Blood Pressure [Right Arm] 61/44 L Blood Pressure Mean 49 Blood Pressure Mean [Right Arm] 49 Blood Pressure Position Blood Pressure Position [Right Arm] Sitting Pulse Oximetry 100 100 100 Pulse Oximetry [Left Index Finger] Oxygen Delivery Method Non-rebreather Oxygen Delivery Method [Left Index Finger] Oxygen Flow Rate 15 06/22/18 20:50 06/22/18 20:57 06/22/18 21:00 Temperature Temperature Source Sepsis Recent Fever Within 48 Hours Sepsis New/Unexplained Change in Mental Status Sepsis Action Taken by Nursing Pulse Rate 119 H 120 H 120 H Pulse Rate [Bilateral Apical] 121 H Pulse Rate from SpO2 Sensor 119 H 121 H 120 H Pulse Rhythm Pulse Rhythm [Bilateral Apical] Regular Pulse Strength Pulse Strength [Bilateral Apical] Normal Respiratory Rate 40 H Respiratory Effort / Characteristics Spontaneous Accessory Muscle Use Labored Respiratory Depth Normal Respiratory Pattern Rapid/Shallow Blood Pressure 72/39 L Blood Pressure [Right Arm] 72/39 L Blood Pressure Mean 50 Blood Pressure Mean [Right Arm] 50 Blood Pressure Position Blood Pressure Position [Right Arm] Lying Pulse Oximetry 100 100 100 Pulse Oximetry [Left Index Finger] Oxygen Delivery Method Non-rebreather Oxygen Delivery Method [Left Index Finger] Oxygen Flow Rate 11 06/22/18 21:10 06/22/18 21:16 06/22/18 21:17 Temperature Temperature Source Sepsis Recent Fever Within 48 Hours Sepsis New/Unexplained Change in Mental Status Sepsis Action Taken by Nursing Pulse Rate 118 H 118 H Pulse Rate [Bilateral Apical] 119 H Pulse Rate from SpO2 Sensor 118 H 118 H Pulse Rhythm Pulse Rhythm [Bilateral Apical] Regular Pulse Strength Pulse Strength [Bilateral Apical] Normal Respiratory Rate 38 H Respiratory Effort / Characteristics Spontaneous Accessory Muscle Use Labored Respiratory Depth Normal Respiratory Pattern Regular Blood Pressure 78/48 L Blood Pressure [Right Arm] 78/48 L Blood Pressure Mean 58 Blood Pressure Mean [Right Arm] 58 Blood Pressure Position Blood Pressure Position [Right Arm] Lying Pulse Oximetry 100 100 100 Pulse Oximetry [Left Index Finger] Oxygen Delivery Method Non-rebreather Oxygen Delivery Method [Left Index Finger] Oxygen Flow Rate 11 06/22/18 21:20 06/22/18 21:30 06/22/18 21:40 Temperature Temperature Source Sepsis Recent Fever Within 48 Hours Sepsis New/Unexplained Change in Mental Status Sepsis Action Taken by Nursing Pulse Rate 119 H 115 H 116 H Pulse Rate [Bilateral Apical] Pulse Rate from SpO2 Sensor 119 H 114 H 116 H Pulse Rhythm Pulse Rhythm [Bilateral Apical] Pulse Strength Pulse Strength [Bilateral Apical] Respiratory Rate Respiratory Effort / Characteristics Respiratory Depth Respiratory Pattern Blood Pressure 75/44 L Blood Pressure [Right Arm] Blood Pressure Mean 54 Blood Pressure Mean [Right Arm] Blood Pressure Position Blood Pressure Position [Right Arm] Pulse Oximetry 100 100 100 Pulse Oximetry [Left Index Finger] Oxygen Delivery Method Oxygen Delivery Method [Left Index Finger] Oxygen Flow Rate 06/22/18 21:45 06/22/18 21:46 06/22/18 21:50 Temperature Temperature Source Sepsis Recent Fever Within 48 Hours Sepsis New/Unexplained Change in Mental Status Sepsis Action Taken by Nursing Pulse Rate 114 H 112 H Pulse Rate [Bilateral Apical] 116 H Pulse Rate from SpO2 Sensor 113 H 112 H Pulse Rhythm Pulse Rhythm [Bilateral Apical] Regular Pulse Strength Pulse Strength [Bilateral Apical] Normal Respiratory Rate 36 H Respiratory Effort / Characteristics Spontaneous Accessory Muscle Use Labored Respiratory Depth Normal Respiratory Pattern Regular Blood Pressure 72/40 L Blood Pressure [Right Arm] 52/43 L Blood Pressure Mean 50 Blood Pressure Mean [Right Arm] 46 Blood Pressure Position Blood Pressure Position [Right Arm] Sitting Pulse Oximetry 100 100 100 Pulse Oximetry [Left Index Finger] Oxygen Delivery Method Non-rebreather Oxygen Delivery Method [Left Index Finger] Oxygen Flow Rate 9 06/22/18 22:00 06/22/18 22:10 06/22/18 22:15 Temperature Temperature Source Sepsis Recent Fever Within 48 Hours Sepsis New/Unexplained Change in Mental Status Sepsis Action Taken by Nursing Pulse Rate 111 H 112 H 107 H Pulse Rate [Bilateral Apical] 113 H Pulse Rate from SpO2 Sensor 111 H 112 H 107 H Pulse Rhythm Pulse Rhythm [Bilateral Apical] Regular Pulse Strength Pulse Strength [Bilateral Apical] Normal Respiratory Rate 30 H Respiratory Effort / Characteristics Non-Labored Spontaneous Respiratory Depth Normal Respiratory Pattern Regular Blood Pressure 77/44 L 70/41 L Blood Pressure [Right Arm] 77/44 L Blood Pressure Mean 55 50 Blood Pressure Mean [Right Arm] 55 Blood Pressure Position Blood Pressure Position [Right Arm] Sitting Pulse Oximetry 100 100 100 Pulse Oximetry [Left Index Finger] Oxygen Delivery Method Nasal Cannula Oxygen Delivery Method [Left Index Finger] Oxygen Flow Rate 4 06/22/18 22:20 06/22/18 22:30 06/22/18 22:40 Temperature Temperature Source Sepsis Recent Fever Within 48 Hours Sepsis New/Unexplained Change in Mental Status Sepsis Action Taken by Nursing Pulse Rate 108 H 106 H 112 H Pulse Rate [Bilateral Apical] Pulse Rate from SpO2 Sensor 108 H 106 H 111 H Pulse Rhythm Pulse Rhythm [Bilateral Apical] Pulse Strength Pulse Strength [Bilateral Apical] Respiratory Rate Respiratory Effort / Characteristics Respiratory Depth Respiratory Pattern Blood Pressure 70/44 L Blood Pressure [Right Arm] Blood Pressure Mean 52 Blood Pressure Mean [Right Arm] Blood Pressure Position Blood Pressure Position [Right Arm] Pulse Oximetry 100 99 99 Pulse Oximetry [Left Index Finger] Oxygen Delivery Method Oxygen Delivery Method [Left Index Finger] Oxygen Flow Rate 06/22/18 22:45 06/22/18 22:50 06/22/18 23:00 Temperature Temperature Source Sepsis Recent Fever Within 48 Hours Sepsis New/Unexplained Change in Mental Status Sepsis Action Taken by Nursing Pulse Rate 110 H 109 H 108 H Pulse Rate [Bilateral Apical] Pulse Rate from SpO2 Sensor 113 H 109 H 109 H Pulse Rhythm Pulse Rhythm [Bilateral Apical] Pulse Strength Pulse Strength [Bilateral Apical] Respiratory Rate Respiratory Effort / Characteristics Respiratory Depth Respiratory Pattern Blood Pressure 75/43 L 78/47 L Blood Pressure [Right Arm] Blood Pressure Mean 53 57 Blood Pressure Mean [Right Arm] Blood Pressure Position Blood Pressure Position [Right Arm] Pulse Oximetry 99 100 98 Pulse Oximetry [Left Index Finger] Oxygen Delivery Method Oxygen Delivery Method [Left Index Finger] Oxygen Flow Rate 06/22/18 23:10 06/22/18 23:15 06/22/18 23:20 Temperature Temperature Source Sepsis Recent Fever Within 48 Hours Sepsis New/Unexplained Change in Mental Status Sepsis Action Taken by Nursing Pulse Rate 111 H 110 H 112 H Pulse Rate [Bilateral Apical] 110 H Pulse Rate from SpO2 Sensor 111 H 111 H 112 H Pulse Rhythm Pulse Rhythm [Bilateral Apical] Regular Pulse Strength Pulse Strength [Bilateral Apical] Normal Respiratory Rate 30 H Respiratory Effort / Characteristics Non-Labored Spontaneous Respiratory Depth Normal Respiratory Pattern Regular Blood Pressure 79/43 L Blood Pressure [Right Arm] 79/43 L Blood Pressure Mean 55 Blood Pressure Mean [Right Arm] 55 Blood Pressure Position Blood Pressure Position [Right Arm] Sitting Pulse Oximetry 98 98 99 Pulse Oximetry [Left Index Finger] Oxygen Delivery Method Nasal Cannula Oxygen Delivery Method [Left Index Finger] Oxygen Flow Rate 4 06/22/18 23:30 06/22/18 23:40 06/22/18 23:45 Temperature Temperature Source Sepsis Recent Fever Within 48 Hours Sepsis New/Unexplained Change in Mental Status Sepsis Action Taken by Nursing Pulse Rate 112 H 124 H 118 H Pulse Rate [Bilateral Apical] Pulse Rate from SpO2 Sensor 112 H 123 H 118 H Pulse Rhythm Pulse Rhythm [Bilateral Apical] Pulse Strength Pulse Strength [Bilateral Apical] Respiratory Rate Respiratory Effort / Characteristics Respiratory Depth Respiratory Pattern Blood Pressure 76/51 L 82/43 L Blood Pressure [Right Arm] Blood Pressure Mean 59 56 Blood Pressure Mean [Right Arm] Blood Pressure Position Blood Pressure Position [Right Arm] Pulse Oximetry 99 100 97 Pulse Oximetry [Left Index Finger] Oxygen Delivery Method Oxygen Delivery Method [Left Index Finger] Oxygen Flow Rate 06/22/18 23:50 06/22/18 23:59 06/23/18 00:00 Temperature Temperature Source Sepsis Recent Fever Within 48 Hours Sepsis New/Unexplained Change in Mental Status Sepsis Action Taken by Nursing Pulse Rate 117 H 118 H Pulse Rate [Bilateral Apical] 117 H Pulse Rate from SpO2 Sensor 117 H 118 H Pulse Rhythm Pulse Rhythm [Bilateral Apical] Regular Pulse Strength Pulse Strength [Bilateral Apical] Normal Respiratory Rate 30 H Respiratory Effort / Characteristics Non-Labored Spontaneous Respiratory Depth Normal Respiratory Pattern Regular Blood Pressure 84/46 L Blood Pressure [Right Arm] 82/43 L Blood Pressure Mean 58 Blood Pressure Mean [Right Arm] 56 Blood Pressure Position Blood Pressure Position [Right Arm] Sitting Pulse Oximetry 96 96 97 Pulse Oximetry [Left Index Finger] Oxygen Delivery Method Nasal Cannula Oxygen Delivery Method [Left Index Finger] Oxygen Flow Rate 4 06/23/18 00:10 06/23/18 00:36 06/23/18 00:40 Temperature Temperature Source Sepsis Recent Fever Within 48 Hours Sepsis New/Unexplained Change in Mental Status Sepsis Action Taken by Nursing Pulse Rate 120 H 112 H 114 H Pulse Rate [Bilateral Apical] Pulse Rate from SpO2 Sensor 122 H 112 H 115 H Pulse Rhythm Pulse Rhythm [Bilateral Apical] Pulse Strength Pulse Strength [Bilateral Apical] Respiratory Rate 22 28 H Respiratory Effort / Characteristics Respiratory Depth Respiratory Pattern Blood Pressure 67/40 L Blood Pressure [Right Arm] Blood Pressure Mean 49 Blood Pressure Mean [Right Arm] Blood Pressure Position Blood Pressure Position [Right Arm] Pulse Oximetry 95 97 99 Pulse Oximetry [Left Index Finger] Oxygen Delivery Method Oxygen Delivery Method [Left Index Finger] Oxygen Flow Rate 06/23/18 00:45 06/23/18 00:49 06/23/18 00:53 Temperature Temperature Source Sepsis Recent Fever Within 48 Hours Sepsis New/Unexplained Change in Mental Status Sepsis Action Taken by Nursing Pulse Rate 119 H 118 H Pulse Rate [Bilateral Apical] Pulse Rate from SpO2 Sensor 121 H Pulse Rhythm Pulse Rhythm [Bilateral Apical] Pulse Strength Pulse Strength [Bilateral Apical] Respiratory Rate 19 Respiratory Effort / Characteristics Respiratory Depth Respiratory Pattern Blood Pressure 78/51 L Blood Pressure [Right Arm] Blood Pressure Mean 60 Blood Pressure Mean [Right Arm] Blood Pressure Position Blood Pressure Position [Right Arm] Pulse Oximetry 95 Pulse Oximetry [Left Index Finger] 97 Oxygen Delivery Method Oxygen Delivery Method [Left Index Finger] Room Air Oxygen Flow Rate 06/23/18 00:54 06/23/18 01:00 06/23/18 01:15 Temperature 37.0 C Temperature Source Oral Sepsis Recent Fever Within 48 Hours Sepsis New/Unexplained Change in Mental Status Sepsis Action Taken by Nursing Pulse Rate 117 H 118 H Pulse Rate [Bilateral Apical] 117 H Pulse Rate from SpO2 Sensor 117 H 120 H Pulse Rhythm Pulse Rhythm [Bilateral Apical] Regular Pulse Strength Pulse Strength [Bilateral Apical] Normal Respiratory Rate 24 19 26 H Respiratory Effort / Characteristics Non-Labored Respiratory Depth Normal Respiratory Pattern Regular Blood Pressure 76/51 L 83/52 L Blood Pressure [Right Arm] 78/51 L Blood Pressure Mean 59 62 Blood Pressure Mean [Right Arm] 60 Blood Pressure Position Blood Pressure Position [Right Arm] Pulse Oximetry 98 100 97 Pulse Oximetry [Left Index Finger] Oxygen Delivery Method Room Air Oxygen Delivery Method [Left Index Finger] Oxygen Flow Rate 06/23/18 01:30 06/23/18 01:45 06/23/18 02:00 Temperature Temperature Source Sepsis Recent Fever Within 48 Hours Sepsis New/Unexplained Change in Mental Status Sepsis Action Taken by Nursing Pulse Rate 123 H 117 H 118 H Pulse Rate [Bilateral Apical] Pulse Rate from SpO2 Sensor 123 H 117 H 118 H Pulse Rhythm Pulse Rhythm [Bilateral Apical] Pulse Strength Pulse Strength [Bilateral Apical] Respiratory Rate 23 29 H 21 Respiratory Effort / Characteristics Respiratory Depth Respiratory Pattern Blood Pressure 94/53 L 105/69 98/51 L Blood Pressure [Right Arm] Blood Pressure Mean 66 81 66 Blood Pressure Mean [Right Arm] Blood Pressure Position Blood Pressure Position [Right Arm] Pulse Oximetry 97 92 95 Pulse Oximetry [Left Index Finger] Oxygen Delivery Method Oxygen Delivery Method [Left Index Finger] Oxygen Flow Rate 06/23/18 02:15 Temperature Temperature Source Sepsis Recent Fever Within 48 Hours Sepsis New/Unexplained Change in Mental Status Sepsis Action Taken by Nursing Pulse Rate 117 H Pulse Rate [Bilateral Apical] Pulse Rate from SpO2 Sensor 117 H Pulse Rhythm Pulse Rhythm [Bilateral Apical] Pulse Strength Pulse Strength [Bilateral Apical] Respiratory Rate 26 H Respiratory Effort / Characteristics Respiratory Depth Respiratory Pattern Blood Pressure Blood Pressure [Right Arm] Blood Pressure Mean Blood Pressure Mean [Right Arm] Blood Pressure Position Blood Pressure Position [Right Arm] Pulse Oximetry 96 Pulse Oximetry [Left Index Finger] Oxygen Delivery Method Oxygen Delivery Method [Left Index Finger] Oxygen Flow Rate GENERAL: Awake, alert, [id number], combative. HENT: Normocephalic, atraumatic. Oropharynx with dry mucous membranes and otherwise unremarkable. EYES: Normal conjunctiva. Sclera non-icteric. Pupils 4mm and sluggish. No nystagmus. NECK: Supple. No nuchal rigidity. FROM. No JVD. RESPIRATORY: Scant intermittent wheeze, otherwise clear. Tachypnic. CARDIAC: Tachycardic rate, normal rhythm. Extremities warm and well perfused. Pulses equal. ABDOMEN: Soft, non-distended. No tenderness to palpation. No rebound or guarding. No masses. RECTAL: Deferred. MUSCULOSKELETAL: Chest examination reveals no tenderness. The back is symmetrical on inspection without obvious abnormality. There is no CVA tenderness to palpation. No joint edema. LOWER EXTREMITIES: Calves are equal size bilaterally and non-tender. No edema. No discoloration. NEURO: Normal sensorium. No sensory or motor deficits noted. Normal reflexes. No clonus. No rigidity. SKIN: No rash or jaundice noted. Procedures Central Line Placement Right IJ: Time Out Performed: Yes Patient Placed on Monitor/Pulse Ox: Yes MD Prep: mask, gown and gloves Central Line Prep: Chlorhexidine scrub Local Anesthetic: lidocaine 1% Amount of anesthesia used (mL): 3 Ultrasound Used for Placement: Yes Central Line Lumen Inserted: triple Post Procedure: sutured in place, good blood return, all ports aspirated, flushed, capped and sterile dressing applied Post Procedure X-Ray: other (Tip in atrium) Patient Tolerated Procedure: well Complications: none Course 1915: The patient was evaluated in room C7, and a complete history and physical examination were performed. 2054: I discussed the patients case with Dr. Dinh KC bobbin trucker. 2057: I reevaluated the patient at this time. 2103: I placed a central line in the patient at this time. See procedure note. 2199: I discussed the patient's case with Dr. Chuy KC hospitalist. Dr. Tao will evaluate the patient for further management. Consultations Consultation #1: I discussed the patient's case with Dr. Chuy KC hospitalist. Dr. Tao will evaluate the patient for further management. Time: 22:00 Administered Medications Norepinephrine Bitartrate 8 mg (/ Dextrose) 508 mls @ 30.35 mls/hr IV .[id number] MICHELLE; Protocol Stop: 07/22/18 22:44 Last Titration: 06/23/18 01:57 Dose: 0.14 mcg/kg/min, 30 mls/hr Documented by: [id number] Admin: 06/22/18 22:57 Dose: 0.1 mcg/kg/min, 21.7 mls/hr Documented by: [id number] Cosigned by: [id number] Sodium Bicarbonate 150 meq/ (Sterile Water) 1,150 mls @ 200 mls/hr IV .[id number] MICHELLE Stop: 07/22/18 23:29 Last Admin: 06/22/18 23:36 Dose: 200 mls/hr Documented by: [id number] Acetylcysteine 2,845 mg/ (Dextrose) 514.225 mls @ 125 mls/hr IV ONE ONE; Protocol Stop: 06/23/18 05:21 Last Admin: 06/23/18 01:38 Dose: 125 mls/hr Documented by: [id number] Ascorbic Acid 1,500 mg/Thiamine HCl 100 mg/ Sodium Chloride 104 mls @ 207 mls/hr IV Q6H [facility] Stop: 06/26/18 20:31 Last Infusion: 06/23/18 02:47 Dose: 0 mls/hr Documented by: [id number] Admin: 06/23/18 01:38 Dose: 207 mls/hr Documented by: [id number] Octreotide Acetate 500 mcg/ (Sodium Chloride) 105 mls @ 10 mls/hr IV .[id number] MICHELLE Stop: 07/23/18 01:14 Last Admin: 06/23/18 01:38 Dose: 10 mls/hr Documented by: [id number] Magnesium Sulfate/Dextrose (Magnesium Sulfate / D5w) 1 gm in 100 mls @ 100 mls/hr IV Q1H MICHELLE Stop: 06/23/18 04:14 Last Admin: 06/23/18 03:21 Dose: 100 mls/hr Documented by: [id number] Infusion: 06/23/18 03:21 Dose: 100 mls/hr Documented by: [id number] Admin: 06/23/18 02:26 Dose: 100 mls/hr Documented by: [id number] Insulin Human Regular 250 (units/ Sodium Chloride) 250 mls @ 1.5 mls/hr IV .Q24H MICHELLE; Protocol Stop: 07/23/18 02:29 Last Admin: 06/23/18 02:37 Dose: 1.5 units/hr, 1.5 mls/hr Documented by: [id number] Cosigned by: [id number] Ondansetron HCl (Zofran) 4 mg IV Q6 MICHELLE Stop: 07/23/18 02:14 Last Admin: 06/23/18 02:27 Dose: 4 mg Documented by: [id number] Discontinued Medications Dextrose (Dextrose 50%) 50 ml IV NOW ONE Stop: 06/22/18 21:50 Last Admin: 06/22/18 22:42 Dose: 50 ml Documented by: [id number] Sodium Chloride (Nss 1000ml) 2,000 mls @ 999 mls/hr IV .Q2H1M MICHELLE Stop: 06/22/18 21:30 Last Infusion: 06/22/18 22:30 Dose: 0 mls/hr Documented by: [id number] Admin: 06/22/18 20:29 Dose: 999 mls/hr Documented by: [id number] Multivitamins 10 ml/ Thiamine HCl 100 mg/ Folic Acid 1 mg/Sodium Chloride 1,011.2 mls @ 1,011.2 mls/hr IV .Q1H STA Stop: 06/22/18 20:27 Last Infusion: 06/22/18 23:40 Dose: 0 mls/hr Documented by: [id number] Admin: 06/22/18 20:05 Dose: 1,011.2 mls/hr Documented by: [id number] Dextrose/Sodium Chloride (D5w And Nss) 1,000 mls @ 999 mls/hr IV .Q1H1M STA Stop: 06/22/18 22:51 Last Infusion: 06/22/18 23:41 Dose: 0 mls/hr Documented by: [id number] Admin: 06/22/18 22:41 Dose: 999 mls/hr Documented by: [id number] Thiamine HCl 100 mg/ Syringe 10 mls @ 2 mls/min IV NOW STA Stop: 06/22/18 21:53 Last Admin: 06/22/18 23:25 Dose: 2 mls/min Documented by: [id number] Piperacillin Sod/Tazobactam Sod (Zosyn) 4.5 gm in 120 mls @ 30 mls/hr IV NOW ON E Stop: 06/23/18 02:00 Last Infusion: 06/22/18 23:28 Dose: 0 mls/hr Documented by: [id number] Admin: 06/22/18 22:51 Dose: 30 mls/hr Documented by: [id number] Vancomycin HCl 1,250 mg/ (Sodium Chloride) 525 mls @ 200 mls/hr IV NOW ONE; Protocol Stop: 06/23/18 00:38 Last Infusion: 06/23/18 01:58 Dose: 0 mls/hr Documented by: [id number] Admin: 06/22/18 22:50 Dose: 200 mls/hr Documented by: [id number] Acetylcysteine 8,540 mg/ (Dextrose) 242.7 mls @ 200 mls/hr IV ONCE ONE Stop: 06/22/18 23:26 Last Infusion: 06/22/18 23:58 Dose: 0 mls/hr Documented by: [id number] Admin: 06/22/18 22:50 Dose: 200 mls/hr Documented by: [id number] Fomepizole 0.85 gm/ Dextrose 100.85 mls @ 200 mls/hr IV ONE ONE Stop: 06/22/18 23:30 Last Infusion: 06/22/18 23:58 Dose: 0 mls/hr Documented by: [id number] Admin: 06/22/18 23:25 Dose: 200 mls/hr Documented by: [id number] Octreotide Acetate 50 mcg/ (Syringe) 10 mls @ 3 mls/min IV ONE ONE Stop: 06/23/18 01:03 Last Admin: 06/23/18 01:38 Dose: 3 mls/min Documented by: [id number] Calcium Gluconate 1,000 mg/ (Sodium Chloride) 60 mls @ 240 mls/hr IV ONE ONE Stop: 06/23/18 02:29 Last Infusion: 06/23/18 02:47 Dose: 0 mls/hr Documented by: [id number] Admin: 06/23/18 02:26 Dose: 240 mls/hr Documented by: [id number] Insulin Human Regular (Novolin R Bolus From Bag) 1.5 units IV ONE ONE Stop: 06/23/18 02:31 Last Admin: 06/23/18 02:38 Dose: 1.5 units Documented by: [id number] Cosigned by: [id number] Ondansetron HCl (Zofran) Confirm Administered Dose 4 mg .ROUTE .STK-MED ONE Stop: 06/22/18 22:01 Last Admin: 06/22/18 22:01 Dose: 4 mg Documented by: [id number] Sodium Bicarbonate (Sodium Bicarbonate 8.4%) 100 meq IV NOW STA Stop: 06/22/18 23:15 Last Admin: 06/22/18 23:35 Dose: 100 meq Documented by: [id number] Medical Decision Making Differential Diagnosis Differential includes overdose on Tylenol/aspirin/ethanol, ethylene glycol, m ethanol, prescribed medications, not prescribe medications/street drugs, metabolic process, traumatic process. Medical Records Attestation: I reviewed the patient's medical records. Home Medications Current Medication List: was personally reviewed by me Laboratory Data Attestation: I reviewed the patient's lab results. Result diagrams: 06/23/18 00:54 06/23/18 00:54 Lab Results 06/22/18 06/22/18 06/22/18 Range/Units 19:40 19:40 19:40 WBC 10.71 (4.8-10.8) K/uL RBC 4.59 (4.2-5.4) M/uL Hgb 12.9 (12.0-16.0) g/dL Hct 41.6 (37-47) % MCV 90.6 (80-100) fL MCH 28.1 (25-34) pg MCHC 31.0 L (32-36) g/dL RDW Std Deviation 59.2 H (36.4-46.3) fL RDW Coeff of Chetan 17.7 H (11.5-14.5) % Plt Count 208 (130-400) K/uL MPV 9.1 (7.4-10.4) fL Immature Gran % (Auto) 0.4 % Neut % (Auto) 84.3 % Lymph % (Auto) 5.6 % [place] % (Auto) 9.6 % Eos % (Auto) 0.0 % Baso % (Auto) 0.1 % Immature Gran # (Auto) 0.04 H (0.00-0.02) K/uL Neut # (Auto) 9.03 H (1.4-6.5) K/uL Lymph # (Auto) 0.60 L (1.2-3.4) K/uL [place] # (Auto) 1.03 H (0.11-0.59) K/uL Eos # (Auto) 0.00 (0-0.5) K/uL Baso # (Auto) 0.01 (0-0.2) K/uL Absolute Nucleated RBC 0.02 H (0-0) K/uL Nucleated RBC % (auto) 0.2 % Toxic Vacuolation 1+ Platelet Estimate (Normal) RBC Morphology Echinocytes 1+ PT (9.0-12.0) Seconds INR (0.9-1.1) VBG pH (7.36-7.41) VBG pCO2 (38-50) mmHg VBG pO2 mmHg VBG HCO3 mmol/L VBG O2 Saturation % VBG Base Excess mEq/L Barometric Pressure mm/Hg Sodium 139 (136-145) mmol/L Potassium (3.5-5.1) mmol/L Chloride 97 L (98-107) mmol/L Carbon Dioxide < 5 L* (21-32) mmol/L Anion Gap 38.0 H (3-11) BUN 34 H (7-18) mg/dl Creatinine 3.50 H (0.6-1.2) mg/dl Est Cr Clr Drug Dosing Not Reportable Est GFR ( Amer) 16.3 Est GFR (Non-Af Amer) 14.0 BUN/Creatinine Ratio 9.7 L (10-20) Glucose 62 L (70-99) mg/dl POC Glucose (70-99) Osmolality (280-300) mOsm/kg Lactate (0.4-2.0) mmol/L Calcium 7.3 L (8.5-10.1) mg/dl Ionized Calcium (1.12-1.32) mmol/L Phosphorus 10.4 H (2.5-4.9) mg/dl Magnesium (1.8-2.4) mg/dl Total Bilirubin 2.7 H (0.2-1) mg/dl Direct Bilirubin Cancelled AST (15-37) U/L ALT 596 H (12-78) U/L Alkaline Phosphatase 224 H (45-117) U/L Total Creatine Kinase (26-192) U/L Troponin I (0-0.045) ng/ml Total Protein 7.6 (6.4-8.2) gm/dl Albumin 3.8 (3.4-5.0) gm/dl Globulin 3.8 (2.5-4.0) gm/dl Albumin/Globulin Ratio 1.0 (0.9-2) Lipase (73-393) U/L Beta-Hydroxybutyric Acd (0.2-2.81) mg/dl TSH 1.600 (0.300-4.500) uIu/ml HCG, Qual (Negative) Urine Color Urine Appearance (Clear) Urine pH (4.5-7.5) Ur Specific [place] (1.000-1.030) Urine Protein (Negative) Urine Glucose (UA) (Negative) Urine Ketones (Negative) Urine Blood (Negative) Urine Nitrite (Negative) Urine Bilirubin (Negative) Urine Urobilinogen (Negative) Ur Leukocyte Esterase (Negative) Urine WBC (Auto) (0-5) /hpf Urine RBC (Auto) (0-4) /hpf U Hyaline Cast (Auto) (0-5) /lpf U Epithel Cells (Auto) (0-5) /lpf Urine Bacteria (Auto) (Negative) Ur Renal Epithelial Cell (0-5) /lpf Calcium Oxalate Crystal (None Prsent) Granular Casts (0) /lpf Urine Osmolality (500-800) mOsm/kg Nasal Screen MRSA (PCR) (Negative) Stool Occult Bld Scrn (Negative) Salicylates Urine Opiates Screen (Neg) Ur Methadone, Qual (Neg) Acetaminophen Urine Barbiturates (Neg) Ur Phencyclidine (PCP) (Neg) U Amphetamin/Meth Scrn (Neg) MDMA (Ecstasy) Screen (Neg) U Benzodiazepines Scrn (Neg) Ur Cocaine Metabolite (Neg) U Marijuana (THC) Screen (Neg) Ethyl Alcohol mg/dL (0-3) mg/dl Blood Type Antibody Screen Crossmatch 06/22/18 06/22/18 06/22/18 Range/Units 19:40 19:41 19:41 WBC (4.8-10.8) K/uL RBC (4.2-5.4) M/uL Hgb (12.0-16.0) g/dL Hct (37-47) % MCV (80-100) fL MCH (25-34) pg MCHC (32-36) g/dL RDW Std Deviation (36.4-46.3) fL RDW Coeff of Chetan (11.5-14.5) % Plt Count (130-400) K/uL MPV (7.4-10.4) fL Immature Gran % (Auto) % Neut % (Auto) % Lymph % (Auto) % [place] % (Auto) % Eos % (Auto) % Baso % (Auto) % Immature Gran # (Auto) (0.00-0.02) K/uL Neut # (Auto) (1.4-6.5) K/uL Lymph # (Auto) (1.2-3.4) K/uL [place] # (Auto) (0.11-0.59) K/uL Eos # (Auto) (0-0.5) K/uL Baso # (Auto) (0-0.2) K/uL Absolute Nucleated RBC (0-0) K/uL Nucleated RBC % (auto) % Toxic Vacuolation Platelet Estimate (Normal) RBC Morphology Echinocytes PT 12.2 H (9.0-12.0) Seconds INR 1.2 H (0.9-1.1) VBG pH (7.36-7.41) VBG pCO2 (38-50) mmHg VBG pO2 mmHg VBG HCO3 mmol/L VBG O2 Saturation % VBG Base Excess mEq/L Barometric Pressure mm/Hg Sodium (136-145) mmol/L Potassium (3.5-5.1) mmol/L Chloride (98-107) mmol/L Carbon Dioxide (21-32) mmol/L Anion Gap (3-11) BUN (7-18) mg/dl Creatinine (0.6-1.2) mg/dl Est Cr Clr Drug Dosing Est GFR ( Amer) Est GFR (Non-Af Amer) BUN/Creatinine Ratio (10-20) Glucose (70-99) mg/dl POC Glucose (70-99) Osmolality (280-300) mOsm/kg Lactate (0.4-2.0) mmol/L Calcium (8.5-10.1) mg/dl Ionized Calcium (1.12-1.32) mmol/L Phosphorus (2.5-4.9) mg/dl Magnesium (1.8-2.4) mg/dl Total Bilirubin (0.2-1) mg/dl Direct Bilirubin AST (15-37) U/L ALT (12-78) U/L Alkaline Phosphatase (45-117) U/L Total Creatine Kinase (26-192) U/L Troponin I (0-0.045) ng/ml Total Protein (6.4-8.2) gm/dl Albumin (3.4-5.0) gm/dl Globulin (2.5-4.0) gm/dl Albumin/Globulin Ratio (0.9-2) Lipase (73-393) U/L Beta-Hydroxybutyric Acd (0.2-2.81) mg/dl TSH (0.300-4.500) uIu/ml HCG, Qual (Negative) Urine Color Yellow Urine Appearance Clear (Clear) Urine pH 5.0 (4.5-7.5) Ur Specific [place] 1.016 (1.000-1.030) Urine Protein 1+ H (Negative) Urine Glucose (UA) Negative (Negative) Urine Ketones 2+ H (Negative) Urine Blood Negative (Negative) Urine Nitrite Negative (Negative) Urine Bilirubin Negative (Negative) Urine Urobilinogen Negative (Negative) Ur Leukocyte Esterase Negative (Negative) Urine WBC (Auto) 1-5 (0-5) /hpf Urine RBC (Auto) 0-4 (0-4) /hpf U Hyaline Cast (Auto) 1-5 (0-5) /lpf U Epithel Cells (Auto) 10-20 H (0-5) /lpf Urine Bacteria (Auto) Negative (Negative) Ur Renal Epithelial Cell (0-5) /lpf Calcium Oxalate Crystal (None Prsent) Granular Casts (0) /lpf Urine Osmolality (500-800) mOsm/kg Nasal Screen MRSA (PCR) (Negative) Stool Occult Bld Scrn (Negative) Salicylates Urine Opiates Screen Neg (Neg) Ur Methadone, Qual Neg (Neg) Acetaminophen Urine Barbiturates Neg (Neg) Ur Phencyclidine (PCP) Neg (Neg) U Amphetamin/Meth Scrn Neg (Neg) MDMA (Ecstasy) Screen Neg (Neg) U Benzodiazepines Scrn Neg (Neg) Ur Cocaine Metabolite Neg (Neg) U Marijuana (THC) Screen Neg (Neg) Ethyl Alcohol mg/dL (0-3) mg/dl Blood Type Antibody Screen Crossmatch 06/22/18 06/22/18 06/22/18 Range/Units 21:31 21:32 21:32 WBC (4.8-10.8) K/uL RBC (4.2-5.4) M/uL Hgb (12.0-16.0) g/dL Hct (37-47) % MCV (80-100) fL MCH (25-34) pg MCHC (32-36) g/dL RDW Std Deviation (36.4-46.3) fL RDW Coeff of Chetan (11.5-14.5) % Plt Count (130-400) K/uL MPV (7.4-10.4) fL Immature Gran % (Auto) % Neut % (Auto) % Lymph % (Auto) % [place] % (Auto) % Eos % (Auto) % Baso % (Auto) % Immature Gran # (Auto) (0.00-0.02) K/uL Neut # (Auto) (1.4-6.5) K/uL Lymph # (Auto) (1.2-3.4) K/uL [place] # (Auto) (0.11-0.59) K/uL Eos # (Auto) (0-0.5) K/uL Baso # (Auto) (0-0.2) K/uL Absolute Nucleated RBC (0-0) K/uL Nucleated RBC % (auto) % Toxic Vacuolation Platelet Estimate (Normal) RBC Morphology Echinocytes PT (9.0-12.0) Seconds INR (0.9-1.1) VBG pH (7.36-7.41) VBG pCO2 (38-50) mmHg VBG pO2 mmHg VBG HCO3 mmol/L VBG O2 Saturation % VBG Base Excess mEq/L Barometric Pressure mm/Hg Sodium (136-145) mmol/L Potassium (3.5-5.1) mmol/L Chloride (98-107) mmol/L Carbon Dioxide (21-32) mmol/L Anion Gap (3-11) BUN (7-18) mg/dl Creatinine (0.6-1.2) mg/dl Est Cr Clr Drug Dosing Est GFR ( Amer) Est GFR (Non-Af Amer) BUN/Creatinine Ratio (10-20) Glucose (70-99) mg/dl POC Glucose (70-99) Osmolality 375 H* (280-300) mOsm/kg Lactate (0.4-2.0) mmol/L Calcium (8.5-10.1) mg/dl Ionized Calcium (1.12-1.32) mmol/L Phosphorus (2.5-4.9) mg/dl Magnesium (1.8-2.4) mg/dl Total Bilirubin (0.2-1) mg/dl Direct Bilirubin AST (15-37) U/L ALT (12-78) U/L Alkaline Phosphatase (45-117) U/L Total Creatine Kinase (26-192) U/L Troponin I (0-0.045) ng/ml Total Protein (6.4-8.2) gm/dl Albumin (3.4-5.0) gm/dl Globulin (2.5-4.0) gm/dl Albumin/Globulin Ratio (0.9-2) Lipase (73-393) U/L Beta-Hydroxybutyric Acd (0.2-2.81) mg/dl TSH (0.300-4.500) uIu/ml HCG, Qual (Negative) Urine Color Urine Appearance (Clear) Urine pH (4.5-7.5) Ur Specific [place] (1.000-1.030) Urine Protein (Negative) Urine Glucose (UA) (Negative) Urine Ketones (Negative) Urine Blood (Negative) Urine Nitrite (Negative) Urine Bilirubin (Negative) Urine Urobilinogen (Negative) Ur Leukocyte Esterase (Negative) Urine WBC (Auto) (0-5) /hpf Urine RBC (Auto) (0-4) /hpf U Hyaline Cast (Auto) (0-5) /lpf U Epithel Cells (Auto) (0-5) /lpf Urine Bacteria (Auto) (Negative) Ur Renal Epithelial Cell (0-5) /lpf Calcium Oxalate Crystal (None Prsent) Granular Casts (0) /lpf Urine Osmolality (500-800) mOsm/kg Nasal Screen MRSA (PCR) (Negative) Stool Occult Bld Scrn (Negative) Salicylates Cancelled Urine Opiates Screen (Neg) Ur Methadone, Qual (Neg) Acetaminophen Cancelled Urine Barbiturates (Neg) Ur Phencyclidine (PCP) (Neg) U Amphetamin/Meth Scrn (Neg) MDMA (Ecstasy) Screen (Neg) U Benzodiazepines Scrn (Neg) Ur Cocaine Metabolite (Neg) U Marijuana (THC) Screen (Neg) Ethyl Alcohol mg/dL 211.4 H (0-3) mg/dl Blood Type Antibody Screen Crossmatch 06/22/18 06/22/18 06/22/18 Range/Units 21:32 21:32 21:32 WBC (4.8-10.8) K/uL RBC (4.2-5.4) M/uL Hgb (12.0-16.0) g/dL Hct (37-47) % MCV (80-100) fL MCH (25-34) pg MCHC (32-36) g/dL RDW Std Deviation (36.4-46.3) fL RDW Coeff of Chetan (11.5-14.5) % Plt Count (130-400) K/uL MPV (7.4-10.4) fL Immature Gran % (Auto) % Neut % (Auto) % Lymph % (Auto) % [place] % (Auto) % Eos % (Auto) % Baso % (Auto) % Immature Gran # (Auto) (0.00-0.02) K/uL Neut # (Auto) (1.4-6.5) K/uL Lymph # (Auto) (1.2-3.4) K/uL [place] # (Auto) (0.11-0.59) K/uL Eos # (Auto) (0-0.5) K/uL Baso # (Auto) (0-0.2) K/uL Absolute Nucleated RBC (0-0) K/uL Nucleated RBC % (auto) % Toxic Vacuolation Platelet Estimate (Normal) RBC Morphology Echinocytes PT (9.0-12.0) Seconds INR (0.9-1.1) VBG pH 6.96 L (7.36-7.41) VBG pCO2 21 L (38-50) mmHg VBG pO2 77 mmHg VBG HCO3 5 mmol/L VBG O2 Saturation 86.6 % VBG Base Excess -25.8 mEq/L Barometric Pressure 732.8 mm/Hg Sodium (136-145) mmol/L Potassium (3.5-5.1) mmol/L Chloride (98-107) mmol/L Carbon Dioxide (21-32) mmol/L Anion Gap (3-11) BUN (7-18) mg/dl Creatinine (0.6-1.2) mg/dl Est Cr Clr Drug Dosing Est GFR ( Amer) Est GFR (Non-Af Amer) BUN/Creatinine Ratio (10-20) Glucose (70-99) mg/dl POC Glucose (70-99) Osmolality (280-300) mOsm/kg Lactate (0.4-2.0) mmol/L Calcium (8.5-10.1) mg/dl Ionized Calcium (1.12-1.32) mmol/L Phosphorus (2.5-4.9) mg/dl Magnesium (1.8-2.4) mg/dl Total Bilirubin (0.2-1) mg/dl Direct Bilirubin 1.7 H AST (15-37) U/L ALT (12-78) U/L Alkaline Phosphatase (45-117) U/L Total Creatine Kinase (26-192) U/L Troponin I 0.027 (0-0.045) ng/ml Total Protein (6.4-8.2) gm/dl Albumin (3.4-5.0) gm/dl Globulin (2.5-4.0) gm/dl Albumin/Globulin Ratio (0.9-2) Lipase (73-393) U/L Beta-Hydroxybutyric Acd (0.2-2.81) mg/dl TSH (0.300-4.500) uIu/ml HCG, Qual Negative (Negative) Urine Color Urine Appearance (Clear) Urine pH (4.5-7.5) Ur Specific [place] (1.000-1.030) Urine Protein (Negative) Urine Glucose (UA) (Negative) Urine Ketones (Negative) Urine Blood (Negative) Urine Nitrite (Negative) Urine Bilirubin (Negative) Urine Urobilinogen (Negative) Ur Leukocyte Esterase (Negative) Urine WBC (Auto) (0-5) /hpf Urine RBC (Auto) (0-4) /hpf U Hyaline Cast (Auto) (0-5) /lpf U Epithel Cells (Auto) (0-5) /lpf Urine Bacteria (Auto) (Negative) Ur Renal Epithelial Cell (0-5) /lpf Calcium Oxalate Crystal (None Prsent) Granular Casts (0) /lpf Urine Osmolality (500-800) mOsm/kg Nasal Screen MRSA (PCR) (Negative) Stool Occult Bld Scrn (Negative) Salicylates Urine Opiates Screen (Neg) Ur Methadone, Qual (Neg) Acetaminophen Urine Barbiturates (Neg) Ur Phencyclidine (PCP) (Neg) U Amphetamin/Meth Scrn (Neg) MDMA (Ecstasy) Screen (Neg) U Benzodiazepines Scrn (Neg) Ur Cocaine Metabolite (Neg) U Marijuana (THC) Screen (Neg) Ethyl Alcohol mg/dL (0-3) mg/dl Blood Type Antibody Screen Crossmatch 06/22/18 06/22/18 06/22/18 Range/Units 22:10 23:44 23:45 WBC (4.8-10.8) K/uL RBC (4.2-5.4) M/uL Hgb (12.0-16.0) g/dL Hct (37-47) % MCV (80-100) fL MCH (25-34) pg MCHC (32-36) g/dL RDW Std Deviation (36.4-46.3) fL RDW Coeff of [place]tan (11.5-14.5) % Plt Count (130-400) K/uL MPV (7.4-10.4) fL Immature Gran % (Auto) % Neut % (Auto) % Lymph % (Auto) % [place] % (Auto) % Eos % (Auto) % Baso % (Auto) % Immature Gran # (Auto) (0.00-0.02) K/uL Neut # (Auto) (1.4-6.5) K/uL Lymph # (Auto) (1.2-3.4) K/uL [place] # (Auto) (0.11-0.59) K/uL Eos # (Auto) (0-0.5) K/uL Baso # (Auto) (0-0.2) K/uL Absolute Nucleated RBC (0-0) K/uL Nucleated RBC % (auto) % Toxic Vacuolation Platelet Estimate (Normal) RBC Morphology Echinocytes PT (9.0-12.0) Seconds INR (0.9-1.1) VBG pH (7.36-7.41) VBG pCO2 (38-50) mmHg VBG pO2 mmHg VBG HCO3 mmol/L VBG O2 Saturation % VBG Base Excess mEq/L Barometric Pressure mm/Hg Sodium (136-145) mmol/L Potassium (3.5-5.1) mmol/L Chloride (98-107) mmol/L Carbon Dioxide (21-32) mmol/L Anion Gap (3-11) BUN (7-18) mg/dl Creatinine (0.6-1.2) mg/dl Est Cr Clr Drug Dosing Est GFR ( Amer) Est GFR (Non-Af Amer) BUN/Creatinine Ratio (10-20) Glucose (70-99) mg/dl POC Glucose 400 H* 452 H* (70-99) Osmolality (280-300) mOsm/kg Lactate 9.8 H* (0.4-2.0) mmol/L Calcium (8.5-10.1) mg/dl Ionized Calcium (1.12-1.32) mmol/L Phosphorus (2.5-4.9) mg/dl Magnesium (1.8-2.4) mg/dl Total Bilirubin (0.2-1) mg/dl Direct Bilirubin AST (15-37) U/L ALT (12-78) U/L Alkaline Phosphatase (45-117) U/L Total Creatine Kinase (26-192) U/L Troponin I (0-0.045) ng/ml Total Protein (6.4-8.2) gm/dl Albumin (3.4-5.0) gm/dl Globulin (2.5-4.0) gm/dl Albumin/Globulin Ratio (0.9-2) Lipase (73-393) U/L Beta-Hydroxybutyric Acd (0.2-2.81) mg/dl TSH (0.300-4.500) uIu/ml HCG, Qual (Negative) Urine Color Urine Appearance (Clear) Urine pH (4.5-7.5) Ur Specific [place] (1.000-1.030) Urine Protein (Negative) Urine Glucose (UA) (Negative) Urine Ketones (Negative) Urine Blood (Negative) Urine Nitrite (Negative) Urine Bilirubin (Negative) Urine Urobilinogen (Negative) Ur Leukocyte Esterase (Negative) Urine WBC (Auto) (0-5) /hpf Urine RBC (Auto) (0-4) /hpf U Hyaline Cast (Auto) (0-5) /lpf U Epithel Cells (Auto) (0-5) /lpf Urine Bacteria (Auto) (Negative) Ur Renal Epithelial Cell (0-5) /lpf Calcium Oxalate Crystal (None Prsent) Granular Casts (0) /lpf Urine Osmolality (500-800) mOsm/kg Nasal Screen MRSA (PCR) (Negative) Stool Occult Bld Scrn (Negative) Salicylates Urine Opiates Screen (Neg) Ur Methadone, Qual (Neg) Acetaminophen Urine Barbiturates (Neg) Ur Phencyclidine (PCP) (Neg) U Amphetamin/Meth Scrn (Neg) MDMA (Ecstasy) Screen (Neg) U Benzodiazepines Scrn (Neg) Ur Cocaine Metabolite (Neg) U Marijuana (THC) Screen (Neg) Ethyl Alcohol mg/dL (0-3) mg/dl Blood Type Antibody Screen Crossmatch 06/23/18 06/23/18 06/23/18 Range/Units 00:54 00:54 00:54 WBC 3.75 L D (4.8-10.8) K/uL RBC 3.36 L (4.2-5.4) M/uL Hgb 9.3 L D (12.0-16.0) g/dL Hct 29.7 L (37-47) % MCV 88.4 (80-100) fL MCH 27.7 (25-34) pg MCHC 31.3 L (32-36) g/dL RDW Std Deviation 56.8 H (36.4-46.3) fL RDW Coeff of [place]tan 17.4 H (11.5-14.5) % Plt Count 83 L D (130-400) K/uL MPV 9.7 (7.4-10.4) fL Immature Gran % (Auto) 0.3 % Neut % (Auto) 83.7 % Lymph % (Auto) 12.8 % [place] % (Auto) 3.2 % Eos % (Auto) 0.0 % Baso % (Auto) 0.0 % Immature Gran # (Auto) 0.01 (0.00-0.02) K/uL Neut # (Auto) 3.14 (1.4-6.5) K/uL Lymph # (Auto) 0.48 L (1.2-3.4) K/uL [place] # (Auto) 0.12 (0.11-0.59) K/uL Eos # (Auto) 0.00 (0-0.5) K/uL Baso # (Auto) 0.00 (0-0.2) K/uL Absolute Nucleated RBC (0-0) K/uL Nucleated RBC % (auto) % Toxic Vacuolation Occasional Platelet Estimate Decreased L (Normal) RBC Morphology Unremarkable Echinocytes PT (9.0-12.0) Seconds INR (0.9-1.1) VBG pH (7.36-7.41) VBG pCO2 (38-50) mmHg VBG pO2 mmHg VBG HCO3 mmol/L VBG O2 Saturation % VBG Base Excess mEq/L Barometric Pressure mm/Hg Sodium 142 (136-145) mmol/L Potassium 4.3 (3.5-5.1) mmol/L Chloride 103 (98-107) mmol/L Carbon Dioxide 12 L (21-32) mmol/L Anion Gap 27.0 H (3-11) BUN 32 H (7-18) mg/dl Creatinine 2.88 H D (0.6-1.2) mg/dl Est Cr Clr Drug Dosing 20.1 Est GFR ( Amer) 20.6 Est GFR (Non-Af Amer) 17.8 BUN/Creatinine Ratio 11.1 (10-20) Glucose 405 H* (70-99) mg/dl POC Glucose (70-99) Osmolality (280-300) mOsm/kg Lactate (0.4-2.0) mmol/L Calcium 5.0 L* D (8.5-10.1) mg/dl Ionized Calcium 0.74 L* (1.12-1.32) mmol/L Phosphorus (2.5-4.9) mg/dl Magnesium 1.6 L (1.8-2.4) mg/dl Total Bilirubin (0.2-1) mg/dl Direct Bilirubin AST (15-37) U/L ALT (12-78) U/L Alkaline Phosphatase (45-117) U/L Total Creatine Kinase (26-192) U/L Troponin I (0-0.045) ng/ml Total Protein (6.4-8.2) gm/dl Albumin (3.4-5.0) gm/dl Globulin (2.5-4.0) gm/dl Albumin/Globulin Ratio (0.9-2) Lipase 1756 H (73-393) U/L Beta-Hydroxybutyric Acd 64.35 H (0.2-2.81) mg/dl TSH (0.300-4.500) uIu/ml HCG, Qual (Negative) Urine Color Urine Appearance (Clear) Urine pH (4.5-7.5) Ur Specific [place] (1.000-1.030) Urine Protein (Negative) Urine Glucose (UA) (Negative) Urine Ketones (Negative) Urine Blood (Negative) Urine Nitrite (Negative) Urine Bilirubin (Negative) Urine Urobilinogen (Negative) Ur Leukocyte Esterase (Negative) Urine WBC (Auto) (0-5) /hpf Urine RBC (Auto) (0-4) /hpf U Hyaline Cast (Auto) (0-5) /lpf U Epithel Cells (Auto) (0-5) /lpf Urine Bacteria (Auto) (Negative) Ur Renal Epithelial Cell (0-5) /lpf Calcium Oxalate Crystal (None Prsent) Granular Casts (0) /lpf Urine Osmolality (500-800) mOsm/kg Nasal Screen MRSA (PCR) (Negative) Stool Occult Bld Scrn (Negative) Salicylates Urine Opiates Screen (Neg) Ur Methadone, Qual (Neg) Acetaminophen Urine Barbiturates (Neg) Ur Phencyclidine (PCP) (Neg) U Amphetamin/Meth Scrn (Neg) MDMA (Ecstasy) Screen (Neg) U Benzodiazepines Scrn (Neg) Ur Cocaine Metabolite (Neg) U Marijuana (THC) Screen (Neg) Ethyl Alcohol mg/dL (0-3) mg/dl Blood Type Antibody Screen Crossmatch 06/23/18 06/23/18 06/23/18 Range/Units 00:54 00:54 01:45 WBC (4.8-10.8) K/uL RBC (4.2-5.4) M/uL Hgb (12.0-16.0) g/dL Hct (37-47) % MCV (80-100) fL MCH (25-34) pg MCHC (32-36) g/dL RDW Std Deviation (36.4-46.3) fL RDW Coeff of [place]tan (11.5-14.5) % Plt Count (130-400) K/uL MPV (7.4-10.4) fL Immature Gran % (Auto) % Neut % (Auto) % Lymph % (Auto) % [place] % (Auto) % Eos % (Auto) % Baso % (Auto) % Immature Gran # (Auto) (0.00-0.02) K/uL Neut # (Auto) (1.4-6.5) K/uL Lymph # (Auto) (1.2-3.4) K/uL [place] # (Auto) (0.11-0.59) K/uL Eos # (Auto) (0-0.5) K/uL Baso # (Auto) (0-0.2) K/uL Absolute Nucleated RBC (0-0) K/uL Nucleated RBC % (auto) % Toxic Vacuolation Platelet Estimate (Normal) RBC Morphology Echinocytes PT (9.0-12.0) Seconds INR (0.9-1.1) VBG pH 7.15 L (7.36-7.41) VBG pCO2 29 L (38-50) mmHg VBG pO2 46 mmHg VBG HCO3 10 mmol/L VBG O2 Saturation 76.0 % VBG Base Excess -17.6 mEq/L Barometric Pressure mm/Hg Sodium (136-145) mmol/L Potassium (3.5-5.1) mmol/L Chloride (98-107) mmol/L Carbon Dioxide (21-32) mmol/L Anion Gap (3-11) BUN (7-18) mg/dl Creatinine (0.6-1.2) mg/dl Est Cr Clr Drug Dosing Est GFR ( Amer) Est GFR (Non-Af Amer) BUN/Creatinine Ratio (10-20) Glucose (70-99) mg/dl POC Glucose (70-99) Osmolality (280-300) mOsm/kg Lactate (0.4-2.0) mmol/L Calcium (8.5-10.1) mg/dl Ionized Calcium (1.12-1.32) mmol/L Phosphorus (2.5-4.9) mg/dl Magnesium (1.8-2.4) mg/dl Total Bilirubin (0.2-1) mg/dl Direct Bilirubin AST (15-37) U/L ALT (12-78) U/L Alkaline Phosphatase (45-117) U/L Total Creatine Kinase (26-192) U/L Troponin I (0-0.045) ng/ml Total Protein (6.4-8.2) gm/dl Albumin (3.4-5.0) gm/dl Globulin (2.5-4.0) gm/dl Albumin/Globulin Ratio (0.9-2) Lipase (73-393) U/L Beta-Hydroxybutyric Acd (0.2-2.81) mg/dl TSH (0.300-4.500) uIu/ml HCG, Qual (Negative) Urine Color Urine Appearance (Clear) Urine pH (4.5-7.5) Ur Specific [place] (1.000-1.030) Urine Protein (Negative) Urine Glucose (UA) (Negative) Urine Ketones (Negative) Urine Blood (Negative) Urine Nitrite (Negative) Urine Bilirubin (Negative) Urine Urobilinogen (Negative) Ur Leukocyte Esterase (Negative) Urine WBC (Auto) (0-5) /hpf Urine RBC (Auto) (0-4) /hpf U Hyaline Cast (Auto) (0-5) /lpf U Epithel Cells (Auto) (0-5) /lpf Urine Bacteria (Auto) (Negative) Ur Renal Epithelial Cell (0-5) /lpf Calcium Oxalate Crystal (None Prsent) Granular Casts (0) /lpf Urine Osmolality (500-800) mOsm/kg Nasal Screen MRSA (PCR) Negative (Negative) Stool Occult Bld Scrn (Negative) Salicylates Urine Opiates Screen (Neg) Ur Methadone, Qual (Neg) Acetaminophen Urine Barbiturates (Neg) Ur Phencyclidine (PCP) (Neg) U Amphetamin/Meth Scrn (Neg) MDMA (Ecstasy) Screen (Neg) U Benzodiazepines Scrn (Neg) Ur Cocaine Metabolite (Neg) U Marijuana (THC) Screen (Neg) Ethyl Alcohol mg/dL (0-3) mg/dl Blood Type A Positive Antibody Screen NEGATIVE Crossmatch See Detail 06/23/18 06/23/18 06/23/18 Range/Units 01:46 01:46 02:13 WBC (4.8-10.8) K/uL RBC (4.2-5.4) M/uL Hgb (12.0-16.0) g/dL Hct (37-47) % MCV (80-100) fL MCH (25-34) pg MCHC (32-36) g/dL RDW Std Deviation (36.4-46.3) fL RDW Coeff of Chetan (11.5-14.5) % Plt Count (130-400) K/uL MPV (7.4-10.4) fL Immature Gran % (Auto) % Neut % (Auto) % Lymph % (Auto) % [place] % (Auto) % Eos % (Auto) % Baso % (Auto) % Immature Gran # (Auto) (0.00-0.02) K/uL Neut # (Auto) (1.4-6.5) K/uL Lymph # (Auto) (1.2-3.4) K/uL [place] # (Auto) (0.11-0.59) K/uL Eos # (Auto) (0-0.5) K/uL Baso # (Auto) (0-0.2) K/uL Absolute Nucleated RBC (0-0) K/uL Nucleated RBC % (auto) % Toxic Vacuolation Platelet Estimate (Normal) RBC Morphology Echinocytes PT (9.0-12.0) Seconds INR (0.9-1.1) VBG pH (7.36-7.41) VBG pCO2 (38-50) mmHg VBG pO2 mmHg VBG HCO3 mmol/L VBG O2 Saturation % VBG Base Excess mEq/L Barometric Pressure mm/Hg Sodium (136-145) mmol/L Potassium (3.5-5.1) mmol/L Chloride (98-107) mmol/L Carbon Dioxide (21-32) mmol/L Anion Gap (3-11) BUN (7-18) mg/dl Creatinine (0.6-1.2) mg/dl Est Cr Clr Drug Dosing Est GFR ( Amer) Est GFR (Non-Af Amer) BUN/Creatinine Ratio (10-20) Glucose (70-99) mg/dl POC Glucose (70-99) Osmolality (280-300) mOsm/kg Lactate (0.4-2.0) mmol/L Calcium (8.5-10.1) mg/dl Ionized Calcium (1.12-1.32) mmol/L Phosphorus (2.5-4.9) mg/dl Magnesium (1.8-2.4) mg/dl Total Bilirubin (0.2-1) mg/dl Direct Bilirubin AST (15-37) U/L ALT (12-78) U/L Alkaline Phosphatase (45-117) U/L Total Creatine Kinase (26-192) U/L Troponin I (0-0.045) ng/ml Total Protein (6.4-8.2) gm/dl Albumin (3.4-5.0) gm/dl Globulin (2.5-4.0) gm/dl Albumin/Globulin Ratio (0.9-2) Lipase (73-393) U/L Beta-Hydroxybutyric Acd (0.2-2.81) mg/dl TSH (0.300-4.500) uIu/ml HCG, Qual (Negative) Urine Color Urine Appearance (Clear) Urine pH (4.5-7.5) Ur Specific [place] (1.000-1.030) Urine Protein (Negative) Urine Glucose (UA) (Negative) Urine Ketones (Negative) Urine Blood (Negative) Urine Nitrite (Negative) Urine Bilirubin (Negative) Urine Urobilinogen (Negative) Ur Leukocyte Esterase (Negative) Urine WBC (Auto) 1-5 (0-5) /hpf Urine RBC (Auto) 0-4 (0-4) /hpf U Hyaline Cast (Auto) >30 H (0-5) /lpf U Epithel Cells (Auto) >30 H (0-5) /lpf Urine Bacteria (Auto) 1+ H (Negative) Ur Renal Epithelial Cell 10-20 H (0-5) /lpf Calcium Oxalate Crystal Present A (None Prsent) Granular Casts 20-30 H (0) /lpf Urine Osmolality 399 L (500-800) mOsm/kg Nasal Screen MRSA (PCR) (Negative) Stool Occult Bld Scrn Positive A (Negative) Salicylates Urine Opiates Screen (Neg) Ur Methadone, Qual (Neg) Acetaminophen Urine Barbiturates (Neg) Ur Phencyclidine (PCP) (Neg) U Amphetamin/Meth Scrn (Neg) MDMA (Ecstasy) Screen (Neg) U Benzodiazepines Scrn (Neg) Ur Cocaine Metabolite (Neg) U Marijuana (THC) Screen (Neg) Ethyl Alcohol mg/dL (0-3) mg/dl Blood Type Antibody Screen Crossmatch 06/23/18 Range/Units 03:39 WBC (4.8-10.8) K/uL RBC (4.2-5.4) M/uL Hgb (12.0-16.0) g/dL Hct (37-47) % MCV (80-100) fL MCH (25-34) pg MCHC (32-36) g/dL RDW Std Deviation (36.4-46.3) fL RDW Coeff of Chetan (11.5-14.5) % Plt Count (130-400) K/uL MPV (7.4-10.4) fL Immature Gran % (Auto) % Neut % (Auto) % Lymph % (Auto) % [place] % (Auto) % Eos % (Auto) % Baso % (Auto) % Immature Gran # (Auto) (0.00-0.02) K/uL Neut # (Auto) (1.4-6.5) K/uL Lymph # (Auto) (1.2-3.4) K/uL [place] # (Auto) (0.11-0.59) K/uL Eos # (Auto) (0-0.5) K/uL Baso # (Auto) (0-0.2) K/uL Absolute Nucleated RBC (0-0) K/uL Nucleated RBC % (auto) % Toxic Vacuolation Platelet Estimate (Normal) RBC Morphology Echinocytes PT (9.0-12.0) Seconds INR (0.9-1.1) VBG pH (7.36-7.41) VBG pCO2 (38-50) mmHg VBG pO2 mmHg VBG HCO3 mmol/L VBG O2 Saturation % VBG Base Excess mEq/L Barometric Pressure mm/Hg Sodium (136-145) mmol/L Potassium (3.5-5.1) mmol/L Chloride (98-107) mmol/L Carbon Dioxide (21-32) mmol/L Anion Gap (3-11) BUN (7-18) mg/dl Creatinine (0.6-1.2) mg/dl Est Cr Clr Drug Dosing Est GFR ( Amer) Est GFR (Non-Af Amer) BUN/Creatinine Ratio (10-20) Glucose (70-99) mg/dl POC Glucose 407 H* (70-99) Osmolality (280-300) mOsm/kg Lactate (0.4-2.0) mmol/L Calcium (8.5-10.1) mg/dl Ionized Calcium (1.12-1.32) mmol/L Phosphorus (2.5-4.9) mg/dl Magnesium (1.8-2.4) mg/dl Total Bilirubin (0.2-1) mg/dl Direct Bilirubin AST (15-37) U/L ALT (12-78) U/L Alkaline Phosphatase (45-117) U/L Total Creatine Kinase (26-192) U/L Troponin I (0-0.045) ng/ml Total Protein (6.4-8.2) gm/dl Albumin (3.4-5.0) gm/dl Globulin (2.5-4.0) gm/dl Albumin/Globulin Ratio (0.9-2) Lipase (73-393) U/L Beta-Hydroxybutyric Acd (0.2-2.81) mg/dl TSH (0.300-4.500) uIu/ml HCG, Qual (Negative) Urine Color Urine Appearance (Clear) Urine pH (4.5-7.5) Ur Specific [place] (1.000-1.030) Urine Protein (Negative) Urine Glucose (UA) (Negative) Urine Ketones (Negative) Urine Blood (Negative) Urine Nitrite (Negative) Urine Bilirubin (Negative) Urine Urobilinogen (Negative) Ur Leukocyte Esterase (Negative) Urine WBC (Auto) (0-5) /hpf Urine RBC (Auto) (0-4) /hpf U Hyaline Cast (Auto) (0-5) /lpf U Epithel Cells (Auto) (0-5) /lpf Urine Bacteria (Auto) (Negative) Ur Renal Epithelial Cell (0-5) /lpf Calcium Oxalate Crystal (None Prsent) Granular Casts (0) /lpf Urine Osmolality (500-800) mOsm/kg Nasal Screen MRSA (PCR) (Negative) Stool Occult Bld Scrn (Negative) Salicylates Urine Opiates Screen (Neg) Ur Methadone, Qual (Neg) Acetaminophen Urine Barbiturates (Neg) Ur Phencyclidine (PCP) (Neg) U Amphetamin/Meth Scrn (Neg) MDMA (Ecstasy) Screen (Neg) U Benzodiazepines Scrn (Neg) Ur Cocaine Metabolite (Neg) U Marijuana (THC) Screen (Neg) Ethyl Alcohol mg/dL (0-3) mg/dl Blood Type Antibody Screen Crossmatch Imaging Data Radiologist's Impression: Radiology results as stated below per my review and the radiologist's interpretation: XR chest 1V portable CLINICAL HISTORY: central line placement tube position COMPARISON STUDY: 06/22/2018 FINDINGS: Central catheter placed in the right atrium. This should be pulled b ack. No evidence for pneumothorax. Diaphragms are smooth. IMPRESSION: Central catheter placed in the right atrium. 2. This should be pulled back approximately 5 cm. 3. No evidence for pneumothorax. The above report was generated using voice recognition software. It may contain grammatical, syntax or spelling errors. Electronically signed by: Mj Smith M.D. 06/22/2018 9:52 PM XR chest 1V portable CLINICAL HISTORY: sob dyspnea COMPARISON STUDY: 04/14/2018 FINDINGS: The bones soft tissues and hemidiaphragms are normal. The cardiomed iastinal silhouette is normal. The lungs are clear. The pulmonary vasculature is normal. IMPRESSION: Negative chest. The above report was generated using voice recognition software. It may contain grammatical, syntax or spelling errors. Electronically signed by: Mj Smith M.D. 06/22/2018 7:39 PM ----- [facility] Preliminary Findings Only See Final Report For Complete Findings CT HEAD: No acute intracranial hemorrhage, mass effect, midline shift, hydrocephalus or infarct. Bony structures are intact. Soft tissues are unremarkable. ------ [facility] Preliminary Findings Only See Final Report For Complete Findings CT ABDOMEN & PELVIS Without Contrast: Severe hepatic steatosis. Status post cholecystectomy. No significant biliary dilatation. Diffuse wall thickening of the distal esophagus suggests esophagitis. Recommend clinical correlation. Status post gastric bypass surgery. Multiple loops of dilated small bowel throughout the abdomen without definite transition point could represent high- grade ileus and less likely partial small bowel obstruction. Moderate amount of stool in the rectum suggests fecal impaction. Normal appendix. No free air or free fluid. 2 mm nonobstructing stone in the inferior left kidney. No hydronephrosis. Dial catheter decompresses the bladder. Status post hysterectomy. Subtle fat stranding surrounding pancreatic head could represent pancreatitis. No pseudocyst or abscess. Status post ORIF of the left hip. There is acetabular protrusion on mild degenerative changes. Old appearing compression deformities of L4, L3, L1 and T10, T9, T8, T7. Radiologist: Mario Ibarra MD Study ready at 00:42 and initial results transmitted at 01:02 ECG Data Attestation: I personally reviewed and interpreted this ECG as follows: Indication: other (Alcohol overdose) Rate (beats per minute): 121 Rhythm: sinus tachycardia Findings: + other (Normal axis. QRS 92. CA 124. QTC 482.); no acute ischemic change Blood Pressure Blood Pressure Findings: Low blood pressure Blood Pressure Disposition: further management by hospitalist [facility] Narrative The patient is a 53-year-old woman with a past medical history of alcohol abuse and prior suicide attempts who presents emergency department with 302 warrant after reported to police of wanting to kill herself by "drinking herself to " presents to emergency department intoxicated and combative per hpi. Arrival the patient is ill-appearing, temperature of 37.9, tachycardic to the 140s and hypotensive 60-80s/40-50s. Patient mentating throughout though appears intoxicated. She is moving all extremities equally. EKG demonstrates sinus tachycardia with normal intervals. No evidence of ischemia. Chest x-ray negative. WBC, H/H, platelets within normal limits. Chemistry demonstrates profound anion gap acidosis with anion gap of 38 and undetectable bicarb. She exhibits renal failure with creatinine of 3.5. Potassium pending due to hemolysis. Lactate 9.8. Serum osmolality elevated at 375 with osmolar gap calculated at 24 concerning for possible coin ingestion of toxic alcohol given EtOH level only 211. Patient does exhibit evidence of liver failure with total bilirubin 2.7, direct bilirubin 1.7, and ALT 569. AST pending due to hemolysis. Troponin 0.027 within normal limits. INR 1.2. UA without evidence of infection. We were able to obtain a single peripheral IV upon arrival and IV fluid hydration was initiated, given the patient's ill appearance and poor access central line was performed emergently per procedure note. Xray subsequently shows tip in atrium, Dr. Tao, ICU bobbin trucker will pull back. Patient was additionally given thiamine followed by dextrose for possible component of alcoholic ketoacidosis. She was additionally given banana bag. Ordered empirically for vancomycin and Zosyn. Given her increased osmolar gap she was additionally ordered for fomepizole with send out labs for toxic alcohols pending. Additionally ordered for NAC, given unknown ingestion and evidence of liver failure. Upon completion of 30cc/kg IVF Levophed ordered per admitting team. Case was discussed with Dr. Vera, [facility] hospitalist who radha luate the patient for admission. Case additionally discussed with Dr. Tao, ICU bobbin trucker who will manage the patient in the ICU. CT head and and abd/pelvis ordered and pending. Impression & Plan Suicide attempt, Alcohol overdose, Overdose, Acute renal failure, Transaminitis, Increased anion gap metabolic acidosis Critical Care Time I have personally spent greater than 135 minutes of critical care time in the direct management of this patient. This includes bedside care, interpretation of diagnostic studies, and testing, discussion with consultants, patient, and family members, and other required patient management activities. This 135 minutes is in excess of all separately billable procedures. Critical Care Time: Yes Total Critical Care Time: 135 Discharge Plan Visit Data *Final* Discharge Date/Time: 06/23/18 00:12 Chief Complaint: Mental Health Evaluation Other Complaint: Alcohol Intoxication ED Provider: Glen Alves Discharge Problem: Suicide attempt, Alcohol overdose, Overdose, Acute renal failure, Transaminitis, Increased anion gap metabolic acidosis Patient Disposition: Admitted As Inpatient Discharge Instructions Interventions: ED Discharge Assessment Last Done: 06/23/18 00:12 Discharge Problem: Alcohol overdose Qualifiers: Encounter type: initial encounter Injury intent: intentional self-harm Qualified Code(s): T51.92XA - Toxic effect of unspecified alcohol, intentional self-harm, initial encounter Overdose Qualifiers: Encounter type: initial encounter Injury intent: intentional self-harm Qualified Code(s): T50.902A - Poisoning by unspecified drugs, medicaments and biological substances, intentional self-harm, initial encounter Acute renal failure Qualifiers: Acute renal failure type: unspecified Qualified Code(s): N17.9 - Acute kidney failure, unspecified The scribe's documentation has been prepared under my direction and personally reviewed by me in its entirety. I confirm that the note above accurately reflects all work, treatment, procedures, and medical decision making performed by me.
[2018-06-22 22:10] LABS: Pregnancy Test, Serum Negative (Negative)
[2018-06-22] MEDS ORDERED: DEXTROSE 5% IV ONE ×2 (22:14→23:00)
[2018-06-22] MEDS ORDERED: ACETYLCYSTEINE IV ONE (22:14)
[2018-06-22 22:57] LABS: Bilirubin Direct 1.7 mg/dl (0-0.2); Troponin I 0.027 ng/ml (0-0.045)
[2018-06-22] MEDS: NOREPINEPHRINE BIT INJ 8 MG in DEXTROSE 5% 500 ML IV SCH (22:57)
[2018-06-22] MEDS ORDERED: FOMEPIZOLE IV ONE (23:00)
[2018-06-22] MEDS ORDERED: SODIUM BICARB 8.4% INJ 50 MEQ/50 ML SYR IV STA (23:14)
--- NOTE | 2018-06-22 23:21 | History & Physical Report ---
Date of Service June 22, 2018 Assessment & Plan (1) Metabolic acidosis: 1. Neuro: patient AA&O to person and place, unable to tell date/situation, answers questions appropriately. No evidence of active EtOH withdrawal at this time. Nonfocal neurological exam, patient is reluctant to move LUE secondary to pain. -Delirium prevention strategies with frequent orientation -Patient at high risk for EtOH withdrawal, has had severe withdrawal in the past. Uncertain when her last drink was. PdSL=231.4. Phenobarbital as needed for withdrawal symptoms -Thiamine 100mg IV daily 2. Cardiovascular: Patient tachycardic, hypotensive, s/p 4L fluid in ICU (NSS x 2, D5NSS x 1 and Banana bag x 1). Levophed initiated with improvement in BP. Patient with echo 06/2016 which showed LVH, mildly reduced EF at 45-50%, regional wma, TR, Grade I diastolic dysfunction. Troponin detectable at 0.027, EKG with ST, no acute ST changes to signify ischemia -Continue Levophed -Repeat troponin 3. Pulmonary: adequate oxygenation and ventilation on NC. CXR with no acute pulmonary process -Continue to monitor -Supplemental O2 as needed to maintain sats > 94% 4. GI: Patient with EtOH abuse, cirrhosis of the liver with Grade I esophageal varices noted on prior EKG, elevated liver enzymes, pancreatitis and GIB Elevated LFTs - most likely EtOH hepatitis vs steatosis, MDF < 32, will not initiate treatment for EtOH hepatitis. Repeat LFTs in AM Pancreatitis - elevated lipase, fat stranding noted on CT. Keep NPO, pain and nausea control. IVF GIB - patient with bloody mucoid BM in ER. No nausea/vomiting/hematemesis or CGE. History of Grade I varices. Will check hemoccult, trend CBC, type and crossed, transfuse for active bleeding, symptomatic anemia or Hg < 7. GI consult Cirrhosis - cautious use of IVF, may consider Albumin. Octreotide gtt for now. GERD - Pepcid 5. - severe metabolic acidosis, multifactorial to include TYRONE, elevated lactate, possible ingestion and EtOH intoxication with alcohol ketosis. -Check Methanol and Ethyl EtOH -Empiric treatement with NAD and Fomipazole -Repeat Osm and VBG with AM labs to recalculate osmolar gap -Urine for crystals and cytology -Bicarbonate gtt -BMP, VBG q 4 hours -Dial in place with UOP 6. Heme - GIB as above, continue to monitor -CBC daily 7. ID - afebrile, WBC=10.71 -Follow culture results -Empiric Vancomycin and Zosyn for now, adjust based on cultures 8. Endocrine - elevated blood glucose, patient with no documented history of DM -Insulin sliding scale -Fingersticks q 1 hour -Check A1C 9. Psych - patient with reported plan for suicide -Suicide precautions -Psychiatry consultation when acute issues resolve History of Present Illness Chief Complaint: sick Primary Care Provider: Kevin Vera 53yo C female presenting with 302, suicidal action. Per report from son, patient has been hiding large amounts of liquor in the home. She has a plan to commit suicide by drinking herself to . She has been refusing medications and doctors appointments over the last two months. She is unable to provide an accurate history upon interview. She denies consuming EtOH. Denies ingestion of other agents. She is complaining that her body hurts all over and that she is having a difficult time breathing. Says that she fell in the bathroom today but was unable to provide specifics. Complaining of right arm pain On arrival to the ER she was found to be afebrile, tachycardic, hypotensive. Patient had passage of bloody mucoid stool x 2 in the ER as well. Lab results as below with severe anion gap metabolic acidosis with pH of 6.96, Gap of 38. Also with TYRONE, elevated LFTs, Osmolar gap and lactate of 9.8. Patient was admitted to [facility] in April with similar presentation on 302 order after planning to kill herself with EtOH consumption. At that time she had marked acidosis, alcoholic hepatitis, pancreatitis with CGE at that time. ER Course: N-acetylcysteine, D50 x 1 amp, Banana bag, Fomepizole, Levophed, Vancomycin, Zosyn, HCO3 x 2 amps with gtt at 200mL/hr, D5NSS x 1L, Zofran 4mg, NSS x 2 liters Allergies Allergy/AdvReac Type Severity Reaction Status Date / Time clarithromycin Allergy Intermediate HIVES Verified 08/03/17 04:46 aspirin Allergy Mild Verified 08/03/17 04:46 tramadol Allergy Mild Verified 08/03/17 04:46 oxaprozin Allergy Unknown Verified 08/03/17 04:46 Home Medications Home Medications Medication Instructions Recorded Confirmed Type Unobtainable 06/22/18 06/22/18 History Past Med/Surg History Medical History History of hysterectomy Lumbago (Chronic) Multiple sclerosis (Chronic) Alcohol abuse Factitious disorder Opiate addiction Presence of intrathecal pump containing morphine 0.189mg/day and fentanyl 2.52mcg/day miminimal rate Sedative abuse Surgical History History of Jeffy-en-Y gastric bypass History of cholecystectomy History of open reduction and internal fixation (ORIF) procedure Family History Other Aneurysm Cancer Stroke Social History Preferred Language: Armenian Communication Ability: Effective Beliefs That Will Affect Care: None Current Living Situation: Alone Other Information That Helps Us Care for You: No Feels Safe at Home: Yes Safety Concerns: Feels Safe At This Time Smoking Status: Never smoker Hx Alcohol Use: Yes Alcohol type: beer, wine and hard liquor Hx Substance Use: No Review of Systems Review of Systems: Unobtainable due to cognitive status Physical Exam Physical Exam: General: patient ill in appearance, AA&O to self and location, answers some questions appropriately but unable to provide a clear and detailed history Skin: warm, dry, intact, scattered bruising HEENT: NC/AT, Pupils large, reactive bilaterally, EOMI, anicteric sclera, conjunctiva without injection, external ear normal to inspection and nontender, nares patent, dry mucus membranes, poor dentition, no oropharyngeal lesions, neck supple, trachea midline, no LAD, no thyromegaly, no JVD Heart: +S1/S2, regular, tachycardic, no m/r/g Lungs: equal air entry bilaterally, no rales/rhonchi/wheezes Abd: +BS, soft, NT/ND, no masses/organomegaly/ascites Ext: cool, 1+ pulses in UE/LE bilaterally, no clubbing/cyanosis or edema Neuro: moving all extremities on command with equal strength, AA&O x 2, speech intact, no facial droop, no tremors Results & Data Vital Signs (Past 12 Hours) Vital Signs Temp Pulse Pulse Resp BP BP Pulse Ox 06/22/18 22:00 113 H 30 H 77/44 L 100 06/22/18 21:45 116 H 36 H 52/43 L 100 06/22/18 21:16 119 H 38 H 78/48 L 06/22/18 20:57 121 H 40 H 72/39 L 100 06/22/18 20:30 122 H 42 H 61/44 L 100 06/22/18 20:10 134 H 42 H 62/38 L 06/22/18 19:59 153 H 46 H 62/38 L 06/22/18 19:00 37.9 C H 145 H 54 H 83/45 L Laboratory Results Lab Results 06/22/18 06/22/18 06/22/18 Range/Units 19:40 19:40 19:40 WBC 10.71 (4.8-10.8) K/uL RBC 4.59 (4.2-5.4) M/uL Hgb 12.9 (12.0-16.0) g/dL Hct 41.6 (37-47) % MCV 90.6 (80-100) fL MCH 28.1 (25-34) pg MCHC 31.0 L (32-36) g/dL RDW Std Deviation 59.2 H (36.4-46.3) fL RDW Coeff of Chetan 17.7 H (11.5-14.5) % Plt Count 208 (130-400) K/uL MPV 9.1 (7.4-10.4) fL Immature Gran % (Auto) 0.4 % Neut % (Auto) 84.3 % Lymph % (Auto) 5.6 % Clinch % (Auto) 9.6 % Eos % (Auto) 0.0 % Baso % (Auto) 0.1 % Immature Gran # (Auto) 0.04 H (0.00-0.02) K/uL Neut # (Auto) 9.03 H (1.4-6.5) K/uL Lymph # (Auto) 0.60 L (1.2-3.4) K/uL Clinch # (Auto) 1.03 H (0.11-0.59) K/uL Eos # (Auto) 0.00 (0-0.5) K/uL Baso # (Auto) 0.01 (0-0.2) K/uL Absolute Nucleated RBC 0.02 H (0-0) K/uL Nucleated RBC % (auto) 0.2 % Toxic Vacuolation 1+ Platelet Estimate (Normal) RBC Morphology Echinocytes 1+ PT (9.0-12.0) Seconds INR (0.9-1.1) VBG pH (7.36-7.41) VBG pCO2 (38-50) mmHg VBG pO2 mmHg VBG HCO3 mmol/L VBG O2 Saturation % VBG Base Excess mEq/L Barometric Pressure mm/Hg Sodium 139 (136-145) mmol/L Potassium (3.5-5.1) mmol/L Chloride 97 L (98-107) mmol/L Carbon Dioxide < 5 L* (21-32) mmol/L Anion Gap 38.0 H (3-11) BUN 34 H (7-18) mg/dl Creatinine 3.50 H (0.6-1.2) mg/dl Est Cr Clr Drug Dosing Not Reportable Est GFR ( Amer) 16.3 Est GFR (Non-Af Amer) 14.0 BUN/Creatinine Ratio 9.7 L (10-20) Glucose 62 L (70-99) mg/dl POC Glucose (70-99) Osmolality (280-300) mOsm/kg Lactate (0.4-2.0) mmol/L Calcium 7.3 L (8.5-10.1) mg/dl Ionized Calcium (1.12-1.32) mmol/L Phosphorus 10.4 H (2.5-4.9) mg/dl Magnesium (1.8-2.4) mg/dl Total Bilirubin 2.7 H (0.2-1) mg/dl Direct Bilirubin Cancelled AST (15-37) U/L ALT 596 H (12-78) U/L Alkaline Phosphatase 224 H (45-117) U/L Total Creatine Kinase (26-192) U/L Troponin I (0-0.045) ng/ml Total Protein 7.6 (6.4-8.2) gm/dl Albumin 3.8 (3.4-5.0) gm/dl Globulin 3.8 (2.5-4.0) gm/dl Albumin/Globulin Ratio 1.0 (0.9-2) Lipase (73-393) U/L Beta-Hydroxybutyric Acd (0.2-2.81) mg/dl TSH 1.600 (0.300-4.500) uIu/ml HCG, Qual (Negative) Urine Color Urine Appearance (Clear) Urine pH (4.5-7.5) Ur Specific [place] (1.000-1.030) Urine Protein (Negative) Urine Glucose (UA) (Negative) Urine Ketones (Negative) Urine Blood (Negative) Urine Nitrite (Negative) Urine Bilirubin (Negative) Urine Urobilinogen (Negative) Ur Leukocyte Esterase (Negative) Urine WBC (Auto) (0-5) /hpf Urine RBC (Auto) (0-4) /hpf U Hyaline Cast (Auto) (0-5) /lpf U Epithel Cells (Auto) (0-5) /lpf Urine Bacteria (Auto) (Negative) Ur Renal Epithelial Cell (0-5) /lpf Calcium Oxalate Crystal (None Prsent) Granular Casts (0) /lpf Urine Osmolality (500-800) mOsm/kg Stool Occult Bld Scrn (Negative) Salicylates Urine Opiates Screen (Neg) Ur Methadone, Qual (Neg) Acetaminophen Urine Barbiturates (Neg) Ur Phencyclidine (PCP) (Neg) U Amphetamin/Meth Scrn (Neg) MDMA (Ecstasy) Screen (Neg) U Benzodiazepines Scrn (Neg) Ur Cocaine Metabolite (Neg) U Marijuana (THC) Screen (Neg) Ethyl Alcohol mg/dL (0-3) mg/dl Blood Type Antibody Screen Crossmatch 06/22/18 06/22/18 06/22/18 Range/Units 19:40 19:41 19:41 WBC (4.8-10.8) K/uL RBC (4.2-5.4) M/uL Hgb (12.0-16.0) g/dL Hct (37-47) % MCV (80-100) fL MCH (25-34) pg MCHC (32-36) g/dL RDW Std Deviation (36.4-46.3) fL RDW Coeff of Chetan (11.5-14.5) % Plt Count (130-400) K/uL MPV (7.4-10.4) fL Immature Gran % (Auto) % Neut % (Auto) % Lymph % (Auto) % Clinch % (Auto) % Eos % (Auto) % Baso % (Auto) % Immature Gran # (Auto) (0.00-0.02) K/uL Neut # (Auto) (1.4-6.5) K/uL Lymph # (Auto) (1.2-3.4) K/uL Clinch # (Auto) (0.11-0.59) K/uL Eos # (Auto) (0-0.5) K/uL Baso # (Auto) (0-0.2) K/uL Absolute Nucleated RBC (0-0) K/uL Nucleated RBC % (auto) % Toxic Vacuolation Platelet Estimate (Normal) RBC Morphology Echinocytes PT 12.2 H (9.0-12.0) Seconds INR 1.2 H (0.9-1.1) VBG pH (7.36-7.41) VBG pCO2 (38-50) mmHg VBG pO2 mmHg VBG HCO3 mmol/L VBG O2 Saturation % VBG Base Excess mEq/L Barometric Pressure mm/Hg Sodium (136-145) mmol/L Potassium (3.5-5.1) mmol/L Chloride (98-107) mmol/L Carbon Dioxide (21-32) mmol/L Anion Gap (3-11) BUN (7-18) mg/dl Creatinine (0.6-1.2) mg/dl Est Cr Clr Drug Dosing Est GFR ( Amer) Est GFR (Non-Af Amer) BUN/Creatinine Ratio (10-20) Glucose (70-99) mg/dl POC Glucose (70-99) Osmolality (280-300) mOsm/kg Lactate (0.4-2.0) mmol/L Calcium (8.5-10.1) mg/dl Ionized Calcium (1.12-1.32) mmol/L Phosphorus (2.5-4.9) mg/dl Magnesium (1.8-2.4) mg/dl Total Bilirubin (0.2-1) mg/dl Direct Bilirubin AST (15-37) U/L ALT (12-78) U/L Alkaline Phosphatase (45-117) U/L Total Creatine Kinase (26-192) U/L Troponin I (0-0.045) ng/ml Total Protein (6.4-8.2) gm/dl Albumin (3.4-5.0) gm/dl Globulin (2.5-4.0) gm/dl Albumin/Globulin Ratio (0.9-2) Lipase (73-393) U/L Beta-Hydroxybutyric Acd (0.2-2.81) mg/dl TSH (0.300-4.500) uIu/ml HCG, Qual (Negative) Urine Color Yellow Urine Appearance Clear (Clear) Urine pH 5.0 (4.5-7.5) Ur Specific [place] 1.016 (1.000-1.030) Urine Protein 1+ H (Negative) Urine Glucose (UA) Negative (Negative) Urine Ketones 2+ H (Negative) Urine Blood Negative (Negative) Urine Nitrite Negative (Negative) Urine Bilirubin Negative (Negative) Urine Urobilinogen Negative (Negative) Ur Leukocyte Esterase Negative (Negative) Urine WBC (Auto) 1-5 (0-5) /hpf Urine RBC (Auto) 0-4 (0-4) /hpf U Hyaline Cast (Auto) 1-5 (0-5) /lpf U Epithel Cells (Auto) 10-20 H (0-5) /lpf Urine Bacteria (Auto) Negative (Negative) Ur Renal Epithelial Cell (0-5) /lpf Calcium Oxalate Crystal (None Prsent) Granular Casts (0) /lpf Urine Osmolality (500-800) mOsm/kg Stool Occult Bld Scrn (Negative) Salicylates Urine Opiates Screen Neg (Neg) Ur Methadone, Qual Neg (Neg) Acetaminophen Urine Barbiturates Neg (Neg) Ur Phencyclidine (PCP) Neg (Neg) U Amphetamin/Meth Scrn Neg (Neg) MDMA (Ecstasy) Screen Neg (Neg) U Benzodiazepines Scrn Neg (Neg) Ur Cocaine Metabolite Neg (Neg) U Marijuana (THC) Screen Neg (Neg) Ethyl Alcohol mg/dL (0-3) mg/dl Blood Type Antibody Screen Crossmatch 06/22/18 06/22/18 06/22/18 Range/Units 21:31 21:32 21:32 WBC (4.8-10.8) K/uL RBC (4.2-5.4) M/uL Hgb (12.0-16.0) g/dL Hct (37-47) % MCV (80-100) fL MCH (25-34) pg MCHC (32-36) g/dL RDW Std Deviation (36.4-46.3) fL RDW Coeff of Chetan (11.5-14.5) % Plt Count (130-400) K/uL MPV (7.4-10.4) fL Immature Gran % (Auto) % Neut % (Auto) % Lymph % (Auto) % Clinch % (Auto) % Eos % (Auto) % Baso % (Auto) % Immature Gran # (Auto) (0.00-0.02) K/uL Neut # (Auto) (1.4-6.5) K/uL Lymph # (Auto) (1.2-3.4) K/uL Clinch # (Auto) (0.11-0.59) K/uL Eos # (Auto) (0-0.5) K/uL Baso # (Auto) (0-0.2) K/uL Absolute Nucleated RBC (0-0) K/uL Nucleated RBC % (auto) % Toxic Vacuolation Platelet Estimate (Normal) RBC Morphology Echinocytes PT (9.0-12.0) Seconds INR (0.9-1.1) VBG pH (7.36-7.41) VBG pCO2 (38-50) mmHg VBG pO2 mmHg VBG HCO3 mmol/L VBG O2 Saturation % VBG Base Excess mEq/L Barometric Pressure mm/Hg Sodium (136-145) mmol/L Potassium (3.5-5.1) mmol/L Chloride (98-107) mmol/L Carbon Dioxide (21-32) mmol/L Anion Gap (3-11) BUN (7-18) mg/dl Creatinine (0.6-1.2) mg/dl Est Cr Clr Drug Dosing Est GFR ( Amer) Est GFR (Non-Af Amer) BUN/Creatinine Ratio (10-20) Glucose (70-99) mg/dl POC Glucose (70-99) Osmolality 375 H* (280-300) mOsm/kg Lactate (0.4-2.0) mmol/L Calcium (8.5-10.1) mg/dl Ionized Calcium (1.12-1.32) mmol/L Phosphorus (2.5-4.9) mg/dl Magnesium (1.8-2.4) mg/dl Total Bilirubin (0.2-1) mg/dl Direct Bilirubin AST (15-37) U/L ALT (12-78) U/L Alkaline Phosphatase (45-117) U/L Total Creatine Kinase (26-192) U/L Troponin I (0-0.045) ng/ml Total Protein (6.4-8.2) gm/dl Albumin (3.4-5.0) gm/dl Globulin (2.5-4.0) gm/dl Albumin/Globulin Ratio (0.9-2) Lipase (73-393) U/L Beta-Hydroxybutyric Acd (0.2-2.81) mg/dl TSH (0.300-4.500) uIu/ml HCG, Qual (Negative) Urine Color Urine Appearance (Clear) Urine pH (4.5-7.5) Ur Specific [place] (1.000-1.030) Urine Protein (Negative) Urine Glucose (UA) (Negative) Urine Ketones (Negative) Urine Blood (Negative) Urine Nitrite (Negative) Urine Bilirubin (Negative) Urine Urobilinogen (Negative) Ur Leukocyte Esterase (Negative) Urine WBC (Auto) (0-5) /hpf Urine RBC (Auto) (0-4) /hpf U Hyaline Cast (Auto) (0-5) /lpf U Epithel Cells (Auto) (0-5) /lpf Urine Bacteria (Auto) (Negative) Ur Renal Epithelial Cell (0-5) /lpf Calcium Oxalate Crystal (None Prsent) Granular Casts (0) /lpf Urine Osmolality (500-800) mOsm/kg Stool Occult Bld Scrn (Negative) Salicylates Cancelled Urine Opiates Screen (Neg) Ur Methadone, Qual (Neg) Acetaminophen Cancelled Urine Barbiturates (Neg) Ur Phencyclidine (PCP) (Neg) U Amphetamin/Meth Scrn (Neg) MDMA (Ecstasy) Screen (Neg) U Benzodiazepines Scrn (Neg) Ur Cocaine Metabolite (Neg) U Marijuana (THC) Screen (Neg) Ethyl Alcohol mg/dL 211.4 H (0-3) mg/dl Blood Type Antibody Screen Crossmatch 06/22/18 06/22/18 06/22/18 Range/Units 21:32 21:32 21:32 WBC (4.8-10.8) K/uL RBC (4.2-5.4) M/uL Hgb (12.0-16.0) g/dL Hct (37-47) % MCV (80-100) fL MCH (25-34) pg MCHC (32-36) g/dL RDW Std Deviation (36.4-46.3) fL RDW Coeff of Chetan (11.5-14.5) % Plt Count (130-400) K/uL MPV (7.4-10.4) fL Immature Gran % (Auto) % Neut % (Auto) % Lymph % (Auto) % Clinch % (Auto) % Eos % (Auto) % Baso % (Auto) % Immature Gran # (Auto) (0.00-0.02) K/uL Neut # (Auto) (1.4-6.5) K/uL Lymph # (Auto) (1.2-3.4) K/uL Clinch # (Auto) (0.11-0.59) K/uL Eos # (Auto) (0-0.5) K/uL Baso # (Auto) (0-0.2) K/uL Absolute Nucleated RBC (0-0) K/uL Nucleated RBC % (auto) % Toxic Vacuolation Platelet Estimate (Normal) RBC Morphology Echinocytes PT (9.0-12.0) Seconds INR (0.9-1.1) VBG pH 6.96 L (7.36-7.41) VBG pCO2 21 L (38-50) mmHg VBG pO2 77 mmHg VBG HCO3 5 mmol/L VBG O2 Saturation 86.6 % VBG Base Excess -25.8 mEq/L Barometric Pressure 732.8 mm/Hg Sodium (136-145) mmol/L Potassium (3.5-5.1) mmol/L Chloride (98-107) mmol/L Carbon Dioxide (21-32) mmol/L Anion Gap (3-11) BUN (7-18) mg/dl Creatinine (0.6-1.2) mg/dl Est Cr Clr Drug Dosing Est GFR ( Amer) Est GFR (Non-Af Amer) BUN/Creatinine Ratio (10-20) Glucose (70-99) mg/dl POC Glucose (70-99) Osmolality (280-300) mOsm/kg Lactate (0.4-2.0) mmol/L Calcium (8.5-10.1) mg/dl Ionized Calcium (1.12-1.32) mmol/L Phosphorus (2.5-4.9) mg/dl Magnesium (1.8-2.4) mg/dl Total Bilirubin (0.2-1) mg/dl Direct Bilirubin 1.7 H AST (15-37) U/L ALT (12-78) U/L Alkaline Phosphatase (45-117) U/L Total Creatine Kinase (26-192) U/L Troponin I 0.027 (0-0.045) ng/ml Total Protein (6.4-8.2) gm/dl Albumin (3.4-5.0) gm/dl Globulin (2.5-4.0) gm/dl Albumin/Globulin Ratio (0.9-2) Lipase (73-393) U/L Beta-Hydroxybutyric Acd (0.2-2.81) mg/dl TSH (0.300-4.500) uIu/ml HCG, Qual Negative (Negative) Urine Color Urine Appearance (Clear) Urine pH (4.5-7.5) Ur Specific [place] (1.000-1.030) Urine Protein (Negative) Urine Glucose (UA) (Negative) Urine Ketones (Negative) Urine Blood (Negative) Urine Nitrite (Negative) Urine Bilirubin (Negative) Urine Urobilinogen (Negative) Ur Leukocyte Esterase (Negative) Urine WBC (Auto) (0-5) /hpf Urine RBC (Auto) (0-4) /hpf U Hyaline Cast (Auto) (0-5) /lpf U Epithel Cells (Auto) (0-5) /lpf Urine Bacteria (Auto) (Negative) Ur Renal Epithelial Cell (0-5) /lpf Calcium Oxalate Crystal (None Prsent) Granular Casts (0) /lpf Urine Osmolality (500-800) mOsm/kg Stool Occult Bld Scrn (Negative) Salicylates Urine Opiates Screen (Neg) Ur Methadone, Qual (Neg) Acetaminophen Urine Barbiturates (Neg) Ur Phencyclidine (PCP) (Neg) U Amphetamin/Meth Scrn (Neg) MDMA (Ecstasy) Screen (Neg) U Benzodiazepines Scrn (Neg) Ur Cocaine Metabolite (Neg) U Marijuana (THC) Screen (Neg) Ethyl Alcohol mg/dL (0-3) mg/dl Blood Type Antibody Screen Crossmatch 06/22/18 06/22/18 06/22/18 Range/Units 22:10 23:44 23:45 WBC (4.8-10.8) K/uL RBC (4.2-5.4) M/uL Hgb (12.0-16.0) g/dL Hct (37-47) % MCV (80-100) fL MCH (25-34) pg MCHC (32-36) g/dL RDW Std Deviation (36.4-46.3) fL RDW Coeff of Chetan (11.5-14.5) % Plt Count (130-400) K/uL MPV (7.4-10.4) fL Immature Gran % (Auto) % Neut % (Auto) % Lymph % (Auto) % Clinch % (Auto) % Eos % (Auto) % Baso % (Auto) % Immature Gran # (Auto) (0.00-0.02) K/uL Neut # (Auto) (1.4-6.5) K/uL Lymph # (Auto) (1.2-3.4) K/uL Clinch # (Auto) (0.11-0.59) K/uL Eos # (Auto) (0-0.5) K/uL Baso # (Auto) (0-0.2) K/uL Absolute Nucleated RBC (0-0) K/uL Nucleated RBC % (auto) % Toxic Vacuolation Platelet Estimate (Normal) RBC Morphology Echinocytes PT (9.0-12.0) Seconds INR (0.9-1.1) VBG pH (7.36-7.41) VBG pCO2 (38-50) mmHg VBG pO2 mmHg VBG HCO3 mmol/L VBG O2 Saturation % VBG Base Excess mEq/L Barometric Pressure mm/Hg Sodium (136-145) mmol/L Potassium (3.5-5.1) mmol/L Chloride (98-107) mmol/L Carbon Dioxide (21-32) mmol/L Anion Gap (3-11) BUN (7-18) mg/dl Creatinine (0.6-1.2) mg/dl Est Cr Clr Drug Dosing Est GFR ( Amer) Est GFR (Non-Af Amer) BUN/Creatinine Ratio (10-20) Glucose (70-99) mg/dl POC Glucose 400 H* 452 H* (70-99) Osmolality (280-300) mOsm/kg Lactate 9.8 H* (0.4-2.0) mmol/L Calcium (8.5-10.1) mg/dl Ionized Calcium (1.12-1.32) mmol/L Phosphorus (2.5-4.9) mg/dl Magnesium (1.8-2.4) mg/dl Total Bilirubin (0.2-1) mg/dl Direct Bilirubin AST (15-37) U/L ALT (12-78) U/L Alkaline Phosphatase (45-117) U/L Total Creatine Kinase (26-192) U/L Troponin I (0-0.045) ng/ml Total Protein (6.4-8.2) gm/dl Albumin (3.4-5.0) gm/dl Globulin (2.5-4.0) gm/dl Albumin/Globulin Ratio (0.9-2) Lipase (73-393) U/L Beta-Hydroxybutyric Acd (0.2-2.81) mg/dl TSH (0.300-4.500) uIu/ml HCG, Qual (Negative) Urine Color Urine Appearance (Clear) Urine pH (4.5-7.5) Ur Specific [place] (1.000-1.030) Urine Protein (Negative) Urine Glucose (UA) (Negative) Urine Ketones (Negative) Urine Blood (Negative) Urine Nitrite (Negative) Urine Bilirubin (Negative) Urine Urobilinogen (Negative) Ur Leukocyte Esterase (Negative) Urine WBC (Auto) (0-5) /hpf Urine RBC (Auto) (0-4) /hpf U Hyaline Cast (Auto) (0-5) /lpf U Epithel Cells (Auto) (0-5) /lpf Urine Bacteria (Auto) (Negative) Ur Renal Epithelial Cell (0-5) /lpf Calcium Oxalate Crystal (None Prsent) Granular Casts (0) /lpf Urine Osmolality (500-800) mOsm/kg Stool Occult Bld Scrn (Negative) Salicylates Urine Opiates Screen (Neg) Ur Methadone, Qual (Neg) Acetaminophen Urine Barbiturates (Neg) Ur Phencyclidine (PCP) (Neg) U Amphetamin/Meth Scrn (Neg) MDMA (Ecstasy) Screen (Neg) U Benzodiazepines Scrn (Neg) Ur Cocaine Metabolite (Neg) U Marijuana (THC) Screen (Neg) Ethyl Alcohol mg/dL (0-3) mg/dl Blood Type Antibody Screen Crossmatch 06/23/18 06/23/18 06/23/18 Range/Units 00:54 00:54 00:54 WBC 3.75 L D (4.8-10.8) K/uL RBC 3.36 L (4.2-5.4) M/uL Hgb 9.3 L D (12.0-16.0) g/dL Hct 29.7 L (37-47) % MCV 88.4 (80-100) fL MCH 27.7 (25-34) pg MCHC 31.3 L (32-36) g/dL RDW Std Deviation 56.8 H (36.4-46.3) fL RDW Coeff of Chetan 17.4 H (11.5-14.5) % Plt Count 83 L D (130-400) K/uL MPV 9.7 (7.4-10.4) fL Immature Gran % (Auto) 0.3 % Neut % (Auto) 83.7 % Lymph % (Auto) 12.8 % Clinch % (Auto) 3.2 % Eos % (Auto) 0.0 % Baso % (Auto) 0.0 % Immature Gran # (Auto) 0.01 (0.00-0.02) K/uL Neut # (Auto) 3.14 (1.4-6.5) K/uL Lymph # (Auto) 0.48 L (1.2-3.4) K/uL Clinch # (Auto) 0.12 (0.11-0.59) K/uL Eos # (Auto) 0.00 (0-0.5) K/uL Baso # (Auto) 0.00 (0-0.2) K/uL Absolute Nucleated RBC (0-0) K/uL Nucleated RBC % (auto) % Toxic Vacuolation Occasional Platelet Estimate Decreased L (Normal) RBC Morphology Unremarkable Echinocytes PT (9.0-12.0) Seconds INR (0.9-1.1) VBG pH (7.36-7.41) VBG pCO2 (38-50) mmHg VBG pO2 mmHg VBG HCO3 mmol/L VBG O2 Saturation % VBG Base Excess mEq/L Barometric Pressure mm/Hg Sodium 142 (136-145) mmol/L Potassium 4.3 (3.5-5.1) mmol/L Chloride 103 (98-107) mmol/L Carbon Dioxide 12 L (21-32) mmol/L Anion Gap 27.0 H (3-11) BUN 32 H (7-18) mg/dl Creatinine 2.88 H D (0.6-1.2) mg/dl Est Cr Clr Drug Dosing 20.1 Est GFR ( Amer) 20.6 Est GFR (Non-Af Amer) 17.8 BUN/Creatinine Ratio 11.1 (10-20) Glucose 405 H* (70-99) mg/dl POC Glucose (70-99) Osmolality (280-300) mOsm/kg Lactate (0.4-2.0) mmol/L Calcium 5.0 L* D (8.5-10.1) mg/dl Ionized Calcium 0.74 L* (1.12-1.32) mmol/L Phosphorus (2.5-4.9) mg/dl Magnesium 1.6 L (1.8-2.4) mg/dl Total Bilirubin (0.2-1) mg/dl Direct Bilirubin AST (15-37) U/L ALT (12-78) U/L Alkaline Phosphatase (45-117) U/L Total Creatine Kinase (26-192) U/L Troponin I (0-0.045) ng/ml Total Protein (6.4-8.2) gm/dl Albumin (3.4-5.0) gm/dl Globulin (2.5-4.0) gm/dl Albumin/Globulin Ratio (0.9-2) Lipase 1756 H (73-393) U/L Beta-Hydroxybutyric Acd 64.35 H (0.2-2.81) mg/dl TSH (0.300-4.500) uIu/ml HCG, Qual (Negative) Urine Color Urine Appearance (Clear) Urine pH (4.5-7.5) Ur Specific [place] (1.000-1.030) Urine Protein (Negative) Urine Glucose (UA) (Negative) Urine Ketones (Negative) Urine Blood (Negative) Urine Nitrite (Negative) Urine Bilirubin (Negative) Urine Urobilinogen (Negative) Ur Leukocyte Esterase (Negative) Urine WBC (Auto) (0-5) /hpf Urine RBC (Auto) (0-4) /hpf U Hyaline Cast (Auto) (0-5) /lpf U Epithel Cells (Auto) (0-5) /lpf Urine Bacteria (Auto) (Negative) Ur Renal Epithelial Cell (0-5) /lpf Calcium Oxalate Crystal (None Prsent) Granular Casts (0) /lpf Urine Osmolality (500-800) mOsm/kg Stool Occult Bld Scrn (Negative) Salicylates Urine Opiates Screen (Neg) Ur Methadone, Qual (Neg) Acetaminophen Urine Barbiturates (Neg) Ur Phencyclidine (PCP) (Neg) U Amphetamin/Meth Scrn (Neg) MDMA (Ecstasy) Screen (Neg) U Benzodiazepines Scrn (Neg) Ur Cocaine Metabolite (Neg) U Marijuana (THC) Screen (Neg) Ethyl Alcohol mg/dL (0-3) mg/dl Blood Type Antibody Screen Crossmatch 06/23/18 06/23/18 06/23/18 Range/Units 00:54 00:54 01:46 WBC (4.8-10.8) K/uL RBC (4.2-5.4) M/uL Hgb (12.0-16.0) g/dL Hct (37-47) % MCV (80-100) fL MCH (25-34) pg MCHC (32-36) g/dL RDW Std Deviation (36.4-46.3) fL RDW Coeff of Chetan (11.5-14.5) % Plt Count (130-400) K/uL MPV (7.4-10.4) fL Immature Gran % (Auto) % Neut % (Auto) % Lymph % (Auto) % Clinch % (Auto) % Eos % (Auto) % Baso % (Auto) % Immature Gran # (Auto) (0.00-0.02) K/uL Neut # (Auto) (1.4-6.5) K/uL Lymph # (Auto) (1.2-3.4) K/uL Clinch # (Auto) (0.11-0.59) K/uL Eos # (Auto) (0-0.5) K/uL Baso # (Auto) (0-0.2) K/uL Absolute Nucleated RBC (0-0) K/uL Nucleated RBC % (auto) % Toxic Vacuolation Platelet Estimate (Normal) RBC Morphology Echinocytes PT (9.0-12.0) Seconds INR (0.9-1.1) VBG pH 7.15 L (7.36-7.41) VBG pCO2 29 L (38-50) mmHg VBG pO2 46 mmHg VBG HCO3 10 mmol/L VBG O2 Saturation 76.0 % VBG Base Excess -17.6 mEq/L Barometric Pressure mm/Hg Sodium (136-145) mmol/L Potassium (3.5-5.1) mmol/L Chloride (98-107) mmol/L Carbon Dioxide (21-32) mmol/L Anion Gap (3-11) BUN (7-18) mg/dl Creatinine (0.6-1.2) mg/dl Est Cr Clr Drug Dosing Est GFR ( Amer) Est GFR (Non-Af Amer) BUN/Creatinine Ratio (10-20) Glucose (70-99) mg/dl POC Glucose (70-99) Osmolality (280-300) mOsm/kg Lactate (0.4-2.0) mmol/L Calcium (8.5-10.1) mg/dl Ionized Calcium (1.12-1.32) mmol/L Phosphorus (2.5-4.9) mg/dl Magnesium (1.8-2.4) mg/dl Total Bilirubin (0.2-1) mg/dl Direct Bilirubin AST (15-37) U/L ALT (12-78) U/L Alkaline Phosphatase (45-117) U/L Total Creatine Kinase (26-192) U/L Troponin I (0-0.045) ng/ml Total Protein (6.4-8.2) gm/dl Albumin (3.4-5.0) gm/dl Globulin (2.5-4.0) gm/dl Albumin/Globulin Ratio (0.9-2) Lipase (73-393) U/L Beta-Hydroxybutyric Acd (0.2-2.81) mg/dl TSH (0.300-4.500) uIu/ml HCG, Qual (Negative) Urine Color Urine Appearance (Clear) Urine pH (4.5-7.5) Ur Specific [place] (1.000-1.030) Urine Protein (Negative) Urine Glucose (UA) (Negative) Urine Ketones (Negative) Urine Blood (Negative) Urine Nitrite (Negative) Urine Bilirubin (Negative) Urine Urobilinogen (Negative) Ur Leukocyte Esterase (Negative) Urine WBC (Auto) 1-5 (0-5) /hpf Urine RBC (Auto) 0-4 (0-4) /hpf U Hyaline Cast (Auto) >30 H (0-5) /lpf U Epithel Cells (Auto) >30 H (0-5) /lpf Urine Bacteria (Auto) 1+ H (Negative) Ur Renal Epithelial Cell 10-20 H (0-5) /lpf Calcium Oxalate Crystal Present A (None Prsent) Granular Casts 20-30 H (0) /lpf Urine Osmolality (500-800) mOsm/kg Stool Occult Bld Scrn (Negative) Salicylates Urine Opiates Screen (Neg) Ur Methadone, Qual (Neg) Acetaminophen Urine Barbiturates (Neg) Ur Phencyclidine (PCP) (Neg) U Amphetamin/Meth Scrn (Neg) MDMA (Ecstasy) Screen (Neg) U Benzodiazepines Scrn (Neg) Ur Cocaine Metabolite (Neg) U Marijuana (THC) Screen (Neg) Ethyl Alcohol mg/dL (0-3) mg/dl Blood Type A Positive Antibody Screen NEGATIVE Crossmatch See Detail 06/23/18 06/23/18 Range/Units 01:46 02:13 WBC (4.8-10.8) K/uL RBC (4.2-5.4) M/uL Hgb (12.0-16.0) g/dL Hct (37-47) % MCV (80-100) fL MCH (25-34) pg MCHC (32-36) g/dL RDW Std Deviation (36.4-46.3) fL RDW Coeff of Chetan (11.5-14.5) % Plt Count (130-400) K/uL MPV (7.4-10.4) fL Immature Gran % (Auto) % Neut % (Auto) % Lymph % (Auto) % Clinch % (Auto) % Eos % (Auto) % Baso % (Auto) % Immature Gran # (Auto) (0.00-0.02) K/uL Neut # (Auto) (1.4-6.5) K/uL Lymph # (Auto) (1.2-3.4) K/uL Clinch # (Auto) (0.11-0.59) K/uL Eos # (Auto) (0-0.5) K/uL Baso # (Auto) (0-0.2) K/uL Absolute Nucleated RBC (0-0) K/uL Nucleated RBC % (auto) % Toxic Vacuolation Platelet Estimate (Normal) RBC Morphology Echinocytes PT (9.0-12.0) Seconds INR (0.9-1.1) VBG pH (7.36-7.41) VBG pCO2 (38-50) mmHg VBG pO2 mmHg VBG HCO3 mmol/L VBG O2 Saturation % VBG Base Excess mEq/L Barometric Pressure mm/Hg Sodium (136-145) mmol/L Potassium (3.5-5.1) mmol/L Chloride (98-107) mmol/L Carbon Dioxide (21-32) mmol/L Anion Gap (3-11) BUN (7-18) mg/dl Creatinine (0.6-1.2) mg/dl Est Cr Clr Drug Dosing Est GFR ( Amer) Est GFR (Non-Af Amer) BUN/Creatinine Ratio (10-20) Glucose (70-99) mg/dl POC Glucose (70-99) Osmolality (280-300) mOsm/kg Lactate (0.4-2.0) mmol/L Calcium (8.5-10.1) mg/dl Ionized Calcium (1.12-1.32) mmol/L Phosphorus (2.5-4.9) mg/dl Magnesium (1.8-2.4) mg/dl Total Bilirubin (0.2-1) mg/dl Direct Bilirubin AST (15-37) U/L ALT (12-78) U/L Alkaline Phosphatase (45-117) U/L Total Creatine Kinase (26-192) U/L Troponin I (0-0.045) ng/ml Total Protein (6.4-8.2) gm/dl Albumin (3.4-5.0) gm/dl Globulin (2.5-4.0) gm/dl Albumin/Globulin Ratio (0.9-2) Lipase (73-393) U/L Beta-Hydroxybutyric Acd (0.2-2.81) mg/dl TSH (0.300-4.500) uIu/ml HCG, Qual (Negative) Urine Color Urine Appearance (Clear) Urine pH (4.5-7.5) Ur Specific [place] (1.000-1.030) Urine Protein (Negative) Urine Glucose (UA) (Negative) Urine Ketones (Negative) Urine Blood (Negative) Urine Nitrite (Negative) Urine Bilirubin (Negative) Urine Urobilinogen (Negative) Ur Leukocyte Esterase (Negative) Urine WBC (Auto) (0-5) /hpf Urine RBC (Auto) (0-4) /hpf U Hyaline Cast (Auto) (0-5) /lpf U Epithel Cells (Auto) (0-5) /lpf Urine Bacteria (Auto) (Negative) Ur Renal Epithelial Cell (0-5) /lpf Calcium Oxalate Crystal (None Prsent) Granular Casts (0) /lpf Urine Osmolality 399 L (500-800) mOsm/kg Stool Occult Bld Scrn Positive A (Negative) Salicylates Urine Opiates Screen (Neg) Ur Methadone, Qual (Neg) Acetaminophen Urine Barbiturates (Neg) Ur Phencyclidine (PCP) (Neg) U Amphetamin/Meth Scrn (Neg) MDMA (Ecstasy) Screen (Neg) U Benzodiazepines Scrn (Neg) Ur Cocaine Metabolite (Neg) U Marijuana (THC) Screen (Neg) Ethyl Alcohol mg/dL (0-3) mg/dl Blood Type Antibody Screen Crossmatch Diagnostic Findings XR chest 1V portable CLINICAL HISTORY: sob dyspnea COMPARISON STUDY: 04/14/2018 FINDINGS: The bones soft tissues and hemidiaphragms are normal. The cardiomediastinal silhouette is normal. The lungs are clear. The pulmonary vasculature is normal. IMPRESSION: Negative chest. The above report was generated using voice recognition software. It may contain grammatical, syntax or spelling errors. Electronically signed by: Mj Smith M.D. 06/22/2018 7:39 PM Dictated: 06/22/181937 Transcribed: 06/22/181937 CT ABDOMEN/PELVIS: Per stat rad: Severe hepatic steatosis, s/p minh. No significant biliary dilatation. Diffuse wall thickening of the distal esophagus suggests esophagitis. S/P gastric bypasss. Multiple loops of dilated small bowel throughout the abdomen without definite transition point could represent high-grade ileus and less likely partial SBO. Moderate stool in rectum suggests fecal impaction. Normal appendix. No free air or fluid. Subtle fat stranding around the pancreas. No pseudocyst or abscess. CT Head: per stat rad: Negative for acute process Code Status & VTE Plan Code Status Full - per record review. VTE Prophylaxis Plan VTE Prophylaxis will be ordered: Yes Critical Care Time Critical Care Time: Yes Total Critical Care Time: 60
[2018-06-22] MEDS: SODIUM BICARBONATE 8.4% 150 MEQ in WATER, STERILE 1,000 ML IV SCH (23:36)
--- NOTE | 2018-06-22 23:40 | Critical Care Consultation ---
Date of Consultation June 22, 2018 Assessment & Plan (1) Admitted to intensive care unit: Reason Critically Ill: 53-year-old male with acute encephalopathy profound metabolic acidosis PLAN: Neuro: Acute encephalopathy Acute alcohol intoxication -Fomepizol treatment impaired CV: Hypertension -Vasoactive support Fluids/Renal: High gap metabolic acidosis -Osmolar gap calculates to 21.6 however there is to a difference between BMP glucose and obtaining sample for osmolar gap -Patient has been empirically started on omeprazole as the methyl alcohol and ethylene glycol are reference labs -I anticipate that this may be artifactual secondary to the temporal delay in obtaining the labs if the patient's glucose was 250 that would render the gap normal Alcoholic ketoacidosis Lactic acidosis -Bicarb infusion at 200 mL's per hour ID: History bacteremia and fungating -Blood culture pending and fungal culture pending GI/Nutrition: Cirrhosis: Remote history of grade 1 varices on previous EGD -Most recent EGD had a marginal ulcer at Jeffy-en-Y anastomotic site Acute gastrointestinal hemorrhage -Type and cross -PPI and octreotide Alcoholic hepatitis Heme: Anemia at baseline -Currently hemoconcentrated DVT prophylaxis: Chemical prophylaxis is contraindicated at this time continue SCDs Endocrine: ICU hyperglycemia protocol Insulin infusion -TSH within normal limits Vascular access: Right triple-lumen CVL placed in ED Code Status: Full I have personally spent 65 minutes of critical care time in the direct management of this patient. This is a life/limb threatening event. This includes time spent evaluating patient, direct bedside care, chart review, placing orders, interpretation of diagnostic studies, discussion with consultants, patient, and/or family members regarding treatment decisions, as we ll as other required patient management activities. This time is exclusive of all separately billable procedures, and teaching time and separate from and in addition to any other critical care service time. History of Present Illness Allergies Allergy/AdvReac Type Severity Reaction Status Date / Time clarithromycin Allergy Intermediate HIVES Verified 08/03/17 04:46 aspirin Allergy Mild Verified 08/03/17 04:46 tramadol Allergy Mild Verified 08/03/17 04:46 oxaprozin Allergy Unknown Verified 08/03/17 04:46 Home Medications Home Medications Medication Instructions Recorded Confirmed Type Unobtainable 06/22/18 06/22/18 History Patient History Medical History History of hysterectomy Lumbago (Chronic) Multiple sclerosis (Chronic) Alcohol abuse Factitious disorder Opiate addiction Presence of intrathecal pump containing morphine 0.189mg/day and fentanyl 2.52mcg/day miminimal rate Sedative abuse Surgical History History of Jeffy-en-Y gastric bypass History of cholecystectomy History of open reduction and internal fixation (ORIF) procedure Family History Other Aneurysm Cancer Stroke Social History Preferred Language: Ethiopian Communication Ability: Impaired Beliefs That Will Affect Care: None Current Living Situation: Alone Other Information That Helps Us Care for You: No Feels Safe at Home: Yes Safety Concerns: Feels Safe At This Time Smoking Status: Never smoker Hx Alcohol Use: Yes Alcohol type: beer, wine and hard liquor Hx Substance Use: No Results & Data Vital Signs (Past 12 Hours) Vital Signs Temp Pulse Pulse Resp BP BP Pulse Ox 06/22/18 23:20 110 H 30 H 79/43 L 99 06/22/18 22:00 113 H 30 H 77/44 L 100 06/22/18 21:45 116 H 36 H 52/43 L 100 06/22/18 21:16 119 H 38 H 78/48 L 100 06/22/18 20:57 121 H 40 H 72/39 L 100 06/22/18 20:30 122 H 42 H 61/44 L 100 06/22/18 20:10 134 H 42 H 62/38 L 100 06/22/18 19:59 153 H 46 H 62/38 L 06/22/18 19:00 37.9 C H 145 H 54 H 83/45 L
[2018-06-23] MEDS ORDERED: SODIUM CHLORIDE 0.9% 250 ML IV PRN (00:42)
[2018-06-23] MEDS ORDERED: NOREPINEPHRINE BIT INJ 8 MG in DEXTROSE 5% 500 ML IV SCH (00:42)
[2018-06-23] MEDS ORDERED: PIPERACILL/TAZOBAC CONSULT ACTIVE PRN (00:42)
[2018-06-23] MEDS ORDERED: ICU PROTOCOL FOR HYPERGLYCEMIA PRN (00:42)
[2018-06-23] MEDS ORDERED: VANCOMYCIN CONSULT ACTIVE PRN (00:42)
[2018-06-23] MEDS ORDERED: AcetylCYSTEINE IV 21 HR REGIMEN (>40KG) IV STA (00:42)
[2018-06-23] MEDS ORDERED: VANCOMYCIN HCL 1,000 MG in SODIUM CHLORIDE 0.9% 250 ML IV SCH (00:42)
[2018-06-23] MEDS ORDERED: OCTREOTIDE ACETATE 50 MCG in SYRINGE 9.5 ML IV ONE (01:00)
[2018-06-23 01:07] LABS: Base Excess VBG -17.6 mEq/L; HCO3 VBG 10 mmol/L; PCO2 VBG 29 mmHg (38-50); PO2 VBG 46 mmHg; pH VBG 7.15 (7.36-7.41)
[2018-06-23] MEDS ORDERED: DEXTROSE 5% IV ONE (01:15)
[2018-06-23] MEDS ORDERED: ACETYLCYSTEINE IV ONE (01:15)
[2018-06-23 01:29] LABS: Hematocrit (blood only) 29.7 % (37-47); Hemoglobin 9.3 g/dL (12.0-16.0); Mean Corpuscular Hgb Conc 31.3 g/dL (32-36); Mean Corpuscular Volume 88.4 fL (80-100); Mean Platelet Volume 9.7 fL (7.4-10.4); Platelet Count 83 K/uL (130-400); RDW Coefficient of Variation 17.4 % (11.5-14.5); RDW Standard Deviation 56.8 fL (36.4-46.3); Red Blood Count 3.36 M/uL (4.2-5.4); White Blood Count 3.75 K/uL (4.8-10.8)
[2018-06-23 01:30] LABS: Immature Granulocytes # (auto) 0.01 K/uL (0.00-0.02); Immature Granulocytes % (auto) 0.3 %; Lymphocytes # (auto) 0.48 K/uL (1.2-3.4); Lymphocytes % (auto) 12.8 %; Monocytes # (auto) 0.12 K/uL (0.11-0.59); Monocytes % (auto) 3.2 %; Neutrophils # (auto) 3.14 K/uL (1.4-6.5); Neutrophils % (auto) 83.7 %; Platelet Estimate Decreased (Normal); RBC Morphology Unremarkable; Toxic Vacuolation Occasional
[2018-06-23 01:36] LABS: BUN Creatinine Ratio 11.1 (10-20); Creatinine Clr Calc Pharmacy 20.1 ml/min; Est GFR (African American) 20.6; Est GFR (Non-African American) 17.8; Magnesium 1.6 mg/dl (1.8-2.4); Potassium 4.3 mmol/L (3.5-5.1)
[2018-06-23] MEDS: ASCORBIC ACID 1,500 MG, THIAMINE HCL 100 MG in 0.9 % SODIUM CHLORIDE 100 ML IV SCH ×2 (01:38→09:08)
[2018-06-23] MEDS: OCTREOTIDE ACETATE 500 MCG in 0.9 % SODIUM CHLORIDE 100 ML IV SCH ×3 (01:38→20:06)
[2018-06-23] MEDS ORDERED: MODERATE STRESS LEVEL ONE (02:02)
[2018-06-23 02:05] LABS: Epithelial Cell Urine Auto >30 /lpf (0-5); RBC Urine Automated 0-4 /hpf (0-4)
[2018-06-23] MEDS ORDERED: CALCIUM GLUCONATE 10% 1,000 MG in SODIUM CHLORIDE 0.9% 50 ML IV ONE (02:15)
[2018-06-23 02:18] LABS: Beta-Hydroxybutyrate 64.35 mg/dl (0.2-2.81)
[2018-06-23] MEDS: MAGNESIUM SULFATE / D5W 1 GM/100 ML BAG IV SCH ×2 (02:26→03:21)
[2018-06-23] MEDS: ONDANSETRON INJ 2 MG/ML 2 ML VIAL IV SCH ×5 (02:27→23:22)
[2018-06-23] MEDS ORDERED: GLUCAGON FOR INJ 1 MG VIAL IM PRN (02:30)
[2018-06-23] MEDS ORDERED: GLUCOSE 10 TABS/TUBE PO PRN (02:30)
[2018-06-23] MEDS ORDERED: GLUCOSE 40% GEL 15 GM TUBE PO PRN (02:30)
[2018-06-23] MEDS ORDERED: INSULIN REGULAR 250 UNITS in SODIUM CHLORIDE 0.9% 247.5 ML IV SCH (02:30)
[2018-06-23] MEDS ORDERED: NovoLIN-R BOLUS FROM BAG IV ONE (02:30)
[2018-06-23 02:33] LABS: Cast Urine Automated >30 /lpf (0-5)
[2018-06-23 02:34] LABS: Bacteria Urine Automated 1+ (Negative)
[2018-06-23 02:37] LABS: Granular Casts Urine 20-30 /lpf (0)
[2018-06-23 02:38] LABS: Calcium Oxalate Crystals Urine Present (None Prsent)
[2018-06-23] MEDS ORDERED: MoRPHine SULFATE 2 MG/ML CARP IV PRN (03:43)
[2018-06-23 04:52] LABS: HCO3 VBG 17 mmol/L; PCO2 VBG 38 mmHg (38-50); PO2 VBG 43 mmHg; pH VBG 7.28 (7.36-7.41)
[2018-06-23 05:01] LABS: INR 1.5 (0.9-1.1); Prothrombin Time 14.6 Seconds (9.0-12.0)
[2018-06-23 05:10] LABS: Hematocrit (blood only) 31.5 % (37-47); Hemoglobin 10.1 g/dL (12.0-16.0); Mean Corpuscular Hgb Conc 32.1 g/dL (32-36); Mean Corpuscular Volume 86.3 fL (80-100); Mean Platelet Volume 9.2 fL (7.4-10.4); Platelet Count 35 K/uL (130-400); RDW Coefficient of Variation 17.1 % (11.5-14.5); RDW Standard Deviation 54.6 fL (36.4-46.3); Red Blood Count 3.65 M/uL (4.2-5.4); White Blood Count 2.72 K/uL (4.8-10.8)
[2018-06-23 05:12] LABS: Immature Granulocytes # (auto) 0.01 K/uL (0.00-0.02); Immature Granulocytes % (auto) 0.4 %; Monocytes # (auto) 0.08 K/uL (0.11-0.59); Monocytes % (auto) 2.9 %; Neutrophils # (auto) 2.33 K/uL (1.4-6.5); Neutrophils % (auto) 85.7 %; Platelet Estimate SIGNIFIC DECREASED (Normal); Toxic Vacuolation 1+
[2018-06-23 05:22] LABS: Albumin Level 2.7 gm/dl (3.4-5.0); BUN Creatinine Ratio 12.4 (10-20); Bilirubin Direct 1.9 mg/dl (0-0.2); Bilirubin,Total 2.3 mg/dl (0.2-1); Creatinine Clr Calc Pharmacy 22.3 ml/min; Est GFR (African American) 23.4; Est GFR (Non-African American) 20.2; Magnesium 2.5 mg/dl (1.8-2.4); Phosphorus 3.9 mg/dl (2.5-4.9); Potassium 3.2 mmol/L (3.5-5.1)
[2018-06-23 05:23] LABS: Calcium 5.4 mg/dl (8.5-10.1)
[2018-06-23] MEDS ORDERED: POTASSIUM CHLORIDE 10 MEQ TABCR PO STA (05:27)
[2018-06-23 05:28] LABS: Total Protein 5.7 gm/dl (6.4-8.2)
[2018-06-23] MEDS ORDERED: DEXTROSE 5% IV SCH ×2 (05:30→10:00)
[2018-06-23] MEDS: SODIUM BICARBONATE 8.4% 150 MEQ in WATER, STERILE 1,000 ML IV SCH ×4 (05:30→23:17)
[2018-06-23] MEDS ORDERED: ACETYLCYSTEINE IV SCH (05:30)
[2018-06-23] MEDS ORDERED: CALCIUM CHLORIDE 10% 1,000 MG in SODIUM CHLORIDE 0.9% 50 ML IV ONE (05:45)
[2018-06-23 05:46] LABS: Beta-Hydroxybutyrate 39.04 mg/dl (0.2-2.81); Troponin I 0.183 ng/ml (0-0.045)
[2018-06-23] MEDS ORDERED: PIPERACILLIN/TAZOBACTAM 3.375 GM in DEXTROSE 5% 100 ML IV SCH (06:00)
--- NOTE | 2018-06-23 06:51 | CT Scan Report ---
ABDOMEN AND PELVIS CT WITHOUT CONTRAST HISTORY: Acute drug overdose overdose, transaminitis TECHNIQUE: Multiaxial CT images of the abdomen and pelvis were performed without contrast. A dose lo wering technique was utilized adhering to the principles of ALARA. COMPARISON STUDY: CT abdomen and pelvis 04/21/2018. FINDINGS: Mild subsegmental bibasilar atelectasis.. The imaged inferior cardiac chambers appear unremarkable. Hepatic steatosis. Additionally, there is mild marginal nodularity of the liver. No intrahepatic bili fadumo ductal dilation or focal hepatic mass lesions identified. Prior cholecystectomy. Spleen is minima lly enlarged. Prominence of the pancreatic tail along its superior margin redemonstrated without foca l pancreatic mass lesion identified. No pancreatic ductal dilation. There is mild interstitial with p eripancreatic edema about the uncinate process, head and neck. With mild periduodenal inflammatory st randing No peripancreatic fluid collection. Mild thickening of the adrenal glands. 4 mm nonobstructing calculus of the inferior pole left kidney. Kidneys are otherwise unremarkable. No ureteral calculi or obstructive uropathy. Vascular calcifications adjacent to the mid right ureter r edemonstrated. Multiple pelvic basin calcifications are also seen. Streak artifact from left hip orth opedic hardware limits evaluation of the pelvic structures. Urinary bladder is decompressed with Fole y catheter in place. Prior hysterectomy. No adnexal mass lesions. Aorta and IVC are unremarkable. No adenopathy by CT size criteria. Wall thickening about the distal esophagus with small hiatal hernia. Prior gastric bypass. No definit e small bowel obstruction. There are a few mildly prominent loops of small bowel suggestive of a prob able ileus. Postoperative changes from right hemicolectomy with enterocolic anastomosis. No definite bowel wall thickening identified. Mild diffuse mesenteric and body wall edema redemonstrated with res olution of the previously described abdominal pelvic ascites. Nonspecific mildly prominent lymph nodes of the right lower quadrant mesentery. A subcutaneous device is noted about the right anterior abdominal wall. The lead is coiled within the subcutaneous tissues of the midline lower back. Bones appear to be intact. Chronic fracture about the left acetabulum. Un changed appearance of multiple remote compression deformities IMPRESSION: 1. Interstitial and peripancreatic edema involves the uncinate process, pancreatic head and neck. Cor relate with lipase level to exclude acute pancreatitis. Mild inflammatory stranding surrounding the d uodenum suggests reactive change versus primary duodenitis. 2. Wall thickening of the distal esophagus with small hiatal hernia. 3. No bowel obstruction. 4. Severe hepatic steatosis with mild marginal nodularity suggestive of cirrhosis. Resolution of the previously described abdominopelvic ascites. 5. Nonobstructing left nephrolithiasis. 6. Additional findings as above. Electronically signed by: Brennon Matos M.D. 06/23/2018 6:49 AM
--- NOTE | 2018-06-23 07:07 | CT Scan Report ---
CT SCAN OF THE BRAIN WITHOUT IV CONTRAST CLINICAL HISTORY: Fall. Change in mental status. COMPARISON STUDY: CT of the brain dated 04/12/2018. TECHNIQUE: Unenhanced axial CT scan of the brain is performed from the vertex to the skull base. A d ose lowering technique was utilized adhering to the principles of ALARA. CT DOSE: 921.02 mGy.cm FINDINGS: Brain parenchyma: The brain parenchyma is normal in appearance. There is no hemorrhage, mass effect, or evidence of acute territorial ischemia by CT criteria. Sanchez-white matter differentiation is preser isacc. No extra-axial fluid collection is seen. Ventricles, sulci, cisterns: Normal in configuration. Intracranial vasculature: The visualized intracranial vasculature at the skull base is normal in appe arance. Calvarium: There is no depressed calvarial fracture. Sinuses and mastoids: The visualized paranasal sinuses are clear. The mastoid air cells are well pneu matized. Orbits: The bony orbits are grossly intact. IMPRESSION: There is no hemorrhage, mass effect, or evidence of acute territorial ischemia by CT vilma pedro. Electronically signed by: Herbie Reese M.D. 06/23/2018 7:06 AM
[2018-06-23 07:12] LABS: Fibrinogen 158 mg/dl (184-400)
[2018-06-23 07:14] LABS: D Dimer 5030 ug/L FEU (0-500)
[2018-06-23] MEDS ORDERED: PHYTONADIONE 5 MG in SODIUM CHLORIDE 0.9% 50 ML IV ONE ×2 (08:42→08:45)
[2018-06-23] MEDS ORDERED: FAMOTIDINE 20 MG in SYRINGE 3 ML IV SCH (09:00)
[2018-06-23] MEDS: INSULIN ASPART 100 UNITS/ML 3 ML PEN SC SCH ×2 (09:08→14:05)
[2018-06-23 09:17] LABS: Vitamin B12 > 2000 pg/ml (211-911)
[2018-06-23 09:18] LABS: Folate (Folic Acid) > 24.00 ng/ml (>5.38)
[2018-06-23 09:46] LABS: BUN Creatinine Ratio 14.1 (10-20); Calcium 6.6 mg/dl (8.5-10.1); Creatinine Clr Calc Pharmacy 25.1 ml/min; Est GFR (African American) 26.9; Est GFR (Non-African American) 23.2; Potassium 2.7 mmol/L (3.5-5.1)
[2018-06-23 09:56] LABS: Beta-Hydroxybutyrate 5.34 mg/dl (0.2-2.81)
[2018-06-23] MEDS ORDERED: FOMEPIZOLE IV SCH (10:00)
[2018-06-23] MEDS: POTASSIUM CHLORIDE / WTR 20 MEQ/100 ML PLCT IV SCH ×3 (10:45→14:27)
--- NOTE | 2018-06-23 11:17 | Critical Care Progress Note ---
Date of Service June 23, 2018 Assessment & Plan (1) Admitted to intensive care unit: Reason Critically Ill: 53-year-old male with acute encephalopathy profound metabolic acidosis PLAN: Neuro: Acute encephalopathy - no change at this time Acute alcohol intoxication - Fomepizol treatment continue CV: Hypotension -Weaned off Vasoactive support Fluids/Renal: High gap metabolic acidosis -Osmolar gap calculates to 21.6 however there is no a difference between BMP glucose and obtaining sample for osmolar gap -Patient has been empirically started on omeprazole as the methyl alcohol and ethylene glycol are reference labs -Repeat alcohol not obtained I am attempting to have alcohol added onto earlier morning specimen, Continue omeprazole in the interim - Anion gap improving Alcoholic ketoacidosis: Improving Lactic acidosis: improving Hypokalemia -60 M EQ potassium chloride -Bicarb infusion at 200 mL's per hour Acute Kidney Injury: Improving ID: History bacteremia and fungemia -Blood culture pending and fungal culture pending -Continue empiric vancomycin and Zosyn - awaiting culture results GI/Nutrition: Cirrhosis: Remote history of grade 1 varices on previous EGD -Most recent EGD had a marginal ulcer at Jeffy-en-Y anastomotic site - Discussed with gastroenterology Acute gastrointestinal hemorrhage -Type and cross -Every 8 hour CBC -PPI and octreotide Alcoholic hepatitis Heme: Anemia at baseline Supratherapeutic INR -5 mg IV vitamin K Low fibrinogen, elevated d-dimer: Rule out disseminated intravascular coagulation -Give 1 unit cryoprecipitate: patient has accepted blood in past, willing to recieve blood products today. Consent/assent obtained -Bilateral lower extremity venous duplex - Trend CBC, fibrinogen, PT/INR, PTT every 8 hours x 3 DVT prophylaxis: Chemical prophylaxis is contraindicated at this time continue SCDs Endocrine: ICU hyperglycemia protocol Hyperyglycemia: improving - Insulin infusion: - TSH within normal limits Vascular access: Right triple-lumen CVL placed in ED Code Status: Full Supervising Physician Co-Signing Physician Notes Dr. oLfton was resident physician during care of patient. I separately evaluated patient for riley portions of the history and the exam. I was present during the critical portion of medical decision making, and I discussed the case with the resident. I generally agree with the findings and plan. 1300: Utilizing patient's for 30 labs and estimating from previous measured alc ohol to latest alcohol metabolism kinetics are linear in fashion her alcohol level should be 120 at 4:30 AM utilizing 430 numbers with 120 alcohol she has no osmolar gap we will discontinue fomepizole treatment. I have personally spent 60 minutes of critical care time in the direct management of this patient. This is a life/limb threatening event. This includes time spent evaluating patient, direct bedside care, chart review, placing orders, interpretation of diagnostic studies, discussion with consultants, patient, and/or family members regarding treatment decisions, as well as other required patient management activities. This time is exclusive of all separately billable procedures, and teaching time and separate from and in addition to any other critical care service time. Pierce Wren reports she feels "terrible" this morning. She endorses that she feels uncomfortable and in pain "all over ". She reports her left side hurts from falling while intoxicated. She feels nauseous today. She endorses vomiting in the 20 minutes prior to visit this morning. She endorses having bloody and maroon bowel movements, no melena. She denies chest pressure. She denies difficulty breathing. She endorses feelings of shakiness and tremulousness. Review of Systems Review of Systems: Constitutional: Denies fever, chills. Endorses malaise Eyes: Denies eye pain, vision change Cardiovascular: Endorses chest pain, chest achiness. Denies chest pressure. Feels shaky, endorses palpitations. Respiratory: Endorses shortness of breath, cough. Denies difficulty breathing. Gastrointestinal: Endorses abdomianl pain, nonfocal. Endorses nausea, vomiting, small volume hematemesis. Endorses diarrhea with maroon/bloody stool and without melena. Genitourinary: Denies pain with urination Musculoskeletal: Endorses weakness, diffuse muscle aches/pain, diffuse joint aches/pain Integumentary:Denies rash. Neurological: Endorses headache. Denies numbness, tingling, focal weakness Physical Exam Physical Exam: General: A&Ox3. Thin appearing female laying in bed, NAD but appears ill. Tremulous. Cooperative. No jaundice HEENT: Atraumatic, normocephalic. No scleral icterus Pulm: CTAB A&P. -wheezes, -rales, -rhonchi. Symmetrical chest rise. No respiratory distress. Cardiac: RRR, -mrg. Abdomen: Diffuse tenderness to palpation without rebound. Soft. Nondistended. Results & Data Vital Signs (Past 12 Hours) Vital Signs Temp Pulse Pulse Resp BP BP Pulse Ox 06/23/18 06:15 111 H 21 96 06/23/18 06:01 111 H 24 112/66 95 06/23/18 06:00 113 H 24 96 06/23/18 05:45 116 H 24 104/66 94 06/23/18 05:30 115 H 29 H 111/72 95 06/23/18 05:15 112 H 21 105/64 95 06/23/18 05:00 112 H 21 105/65 97 06/23/18 04:52 113 H 21 111/59 L 96 06/23/18 04:46 117 H 21 96 06/23/18 04:45 118 H 21 96 06/23/18 04:30 110 H 22 117/73 95 06/23/18 04:16 119 H 24 99/89 L 95 06/23/18 04:15 117 H 25 H 96 06/23/18 04:00 36.8 C 111 H 24 100/61 93 06/23/18 03:45 115 H 28 H 106/80 94 06/23/18 03:30 114 H 26 H 109/63 94 06/23/18 03:16 118 H 22 99/66 L 95 06/23/18 03:15 117 H 17 95 06/23/18 03:00 111 H 22 97/60 L 93 06/23/18 02:45 116 H 21 98/50 L 95 06/23/18 02:30 115 H 24 91/49 L 99 06/23/18 02:15 117 H 26 H 96 06/23/18 02:00 118 H 21 98/51 L 95 06/23/18 01:45 117 H 29 H 105/69 92 06/23/18 01:30 123 H 23 94/53 L 97 06/23/18 01:15 118 H 26 H 83/52 L 97 06/23/18 01:00 117 H 19 76/51 L 100 06/23/18 00:54 37.0 C 117 H 24 78/51 L 98 06/23/18 00:53 06/23/18 00:49 118 H 06/23/18 00:45 119 H 19 78/51 L 95 06/23/18 00:40 114 H 28 H 99 06/23/18 00:36 112 H 22 67/40 L 97 06/23/18 00:10 120 H 95 06/23/18 00:00 118 H 84/46 L 97 06/22/18 23:59 117 H 30 H 82/43 L 96 06/22/18 23:50 117 H 96 06/22/18 23:45 118 H 82/43 L 97 06/22/18 23:40 124 H 100 06/22/18 23:30 112 H 76/51 L 99 06/22/18 23:20 112 H 110 H 30 H 79/43 L 99 06/22/18 23:15 110 H 79/43 L 98 06/22/18 23:10 111 H 98 06/22/18 23:00 108 H 78/47 L 98 06/22/18 22:50 109 H 100 06/22/18 22:45 110 H 75/43 L 99 06/22/18 22:40 112 H 99 06/22/18 22:30 106 H 70/44 L 99 06/22/18 22:20 108 H 100 06/22/18 22:15 107 H 70/41 L 100 06/22/18 22:10 112 H 100 06/22/18 22:00 111 H 113 H 30 H 77/44 L 77/44 L 100 06/22/18 21:50 112 H 100 06/22/18 21:46 114 H 72/40 L 100 06/22/18 21:45 116 H 36 H 52/43 L 100 06/22/18 21:40 116 H 100 06/22/18 21:30 115 H 75/44 L 100 06/22/18 21:20 119 H 100 06/22/18 21:17 118 H 78/48 L 100 06/22/18 21:16 119 H 38 H 78/48 L 100 06/22/18 21:10 118 H 100 06/22/18 21:00 120 H 100 06/22/18 20:57 120 H 121 H 40 H 72/39 L 72/39 L 100 06/22/18 20:50 119 H 100 06/22/18 20:40 118 H 100 06/22/18 20:31 123 H 61/44 L 100 06/22/18 20:30 123 H 122 H 42 H 61/44 L 100 06/22/18 20:29 121 H 100 06/22/18 20:10 122 H 134 H 27 H 62/38 L 100 06/22/18 20:02 123 H 46 H 62/38 L 06/22/18 20:01 148 H 20 06/22/18 20:00 140 H 27 H 06/22/18 19:59 153 H 46 H 62/38 L 06/22/18 19:50 118 H 34 H 06/22/18 19:40 118 H 35 H 06/22/18 19:30 118 H 36 H 70 L 06/22/18 19:20 123 H 26 H 06/22/18 19:10 124 H 33 H 06/22/18 19:08 123 H 34 H 83/45 L 06/22/18 19:06 128 H 33 H 06/22/18 19:05 130 H 33 H 06/22/18 19:00 37.9 C H 145 H 54 H 83/45 L Pulse Ox 06/23/18 06:15 06/23/18 06:01 06/23/18 06:00 06/23/18 05:45 06/23/18 05:30 06/23/18 05:15 06/23/18 05:00 06/23/18 04:52 06/23/18 04:46 06/23/18 04:45 06/23/18 04:30 06/23/18 04:16 06/23/18 04:15 06/23/18 04:00 06/23/18 03:45 06/23/18 03:30 06/23/18 03:16 06/23/18 03:15 06/23/18 03:00 06/23/18 02:45 06/23/18 02:30 06/23/18 02:15 06/23/18 02:00 06/23/18 01:45 06/23/18 01:30 06/23/18 01:15 06/23/18 01:00 06/23/18 00:54 06/23/18 00:53 97 06/23/18 00:49 06/23/18 00:45 06/23/18 00:40 06/23/18 00:36 06/23/18 00:10 06/23/18 00:00 06/22/18 23:59 06/22/18 23:50 06/22/18 23:45 06/22/18 23:40 06/22/18 23:30 06/22/18 23:20 06/22/18 23:15 06/22/18 23:10 06/22/18 23:00 06/22/18 22:50 06/22/18 22:45 06/22/18 22:40 06/22/18 22:30 06/22/18 22:20 06/22/18 22:15 06/22/18 22:10 06/22/18 22:00 06/22/18 21:50 06/22/18 21:46 06/22/18 21:45 06/22/18 21:40 06/22/18 21:30 06/22/18 21:20 06/22/18 21:17 06/22/18 21:16 06/22/18 21:10 06/22/18 21:00 06/22/18 20:57 06/22/18 20:50 06/22/18 20:40 06/22/18 20:31 06/22/18 20:30 06/22/18 20:29 06/22/18 20:10 06/22/18 20:02 06/22/18 20:01 06/22/18 20:00 06/22/18 19:59 06/22/18 19:50 06/22/18 19:40 06/22/18 19:30 06/22/18 19:20 06/22/18 19:10 06/22/18 19:08 06/22/18 19:06 06/22/18 19:05 06/22/18 19:00 Resident Activity Tracking Resident Involvement: Resident Care Provided Care Provided: Adult Hospital Medicine
[2018-06-23] MEDS ORDERED: PANTOprazole 80 MG in DEXTROSE 5% 100 ML IV SCH (11:45)
[2018-06-23 12:05] LABS: Hematocrit (blood only) 30.1 % (37-47); Hemoglobin 9.8 g/dL (12.0-16.0); Mean Corpuscular Hgb Conc 32.6 g/dL (32-36); Mean Corpuscular Volume 83.6 fL (80-100); Mean Platelet Volume 9.5 fL (7.4-10.4); Platelet Count 26 K/uL (130-400); RDW Coefficient of Variation 16.8 % (11.5-14.5); RDW Standard Deviation 51.1 fL (36.4-46.3); White Blood Count 2.54 K/uL (4.8-10.8)
[2018-06-23 12:07] LABS: BUN Creatinine Ratio 14.2 (10-20); Calcium 6.5 mg/dl (8.5-10.1); Creatinine Clr Calc Pharmacy 26.4 ml/min; Est GFR (African American) 28.7; Est GFR (Non-African American) 24.7; Potassium 2.7 mmol/L (3.5-5.1)
[2018-06-23 12:21] LABS: Fibrinogen 157 mg/dl (184-400); INR 1.5 (0.9-1.1); Prothrombin Time 15.2 Seconds (9.0-12.0)
[2018-06-23] MEDS: THIAMINE HCL 100 MG in SYRINGE 9 ML IV SCH (12:45)
[2018-06-23] MEDS: PANTOprazole 40 MG in DEXTROSE 5% 100 ML IV SCH ×3 (12:57→22:20)
--- NOTE | 2018-06-23 13:04 | Ultrasound Report ---
BILATERAL LOWER EXTREMITY VENOUS DOPPLER CLINICAL HISTORY: Lower extremity pain and swelling. COMPARISON STUDY: Lower extremity venous Doppler November 09, 2015. TECHNIQUE: Sonography of the deep venous system of the bilateral lower extremities was performed. Co mpression and augmentation were evaluated. FINDINGS: The bilateral common femoral, superficial femoral and popliteal veins were compressible. A ugmentation was normal. Flow was shown within the deep calf vessels. IMPRESSION: No evidence of deep venous thrombus within the bilateral lower extremities. Electronically signed by: Benedict Vaughn M.D. 06/23/2018 1:02 PM
--- NOTE | 2018-06-23 13:08 | Gastrointestinal Consultation ---
Date of Consultation June 23, 2018 Assessment & Plan (1) Transaminitis: (2) Elevated lipase: (3) Anemia: (4) GI bleed: Pt is a 53 y/o female w hx of suicide attempt earlier this year by ETOH intoxication, ETOH hepatitis, pancreatitis; currently readmitted with ETOh intoxication and found to have metabolic acidosis, ketosis, TYRONE, having mucoid bloody stools. Hx of gastric bypass w anastomotic ulcers, stenosis s/p dilation. EGD in 2017 also noted grade I esophageal varices. Maddrey Discriminant Score: 16 - Keep NPO, IVR hydration - PPI bolus and gtt - Octreotide bolus and gtt - Defer EGD evaluation given elevated Troponin and K 2.7, will continue to monitor and please call us if she has increased signs of GI bleeding. - Vit K 5mg IV already ordered by ICU team. - Consider Plt transfusion for continued bleeding signs. - Monitor H/H and transfuse prn. - Electrolyte correction per primary and ICU teams. - Recommend Cardiology consult for elevated Troponin. - Regarding elevated LFTs & Lipase: marked increase in transaminases compared from prior, while Tbili and alk phose trending down from previous admission. While she likely has ongoing ETOH hepatitis, pancreatitis given markedly increased transminases and CK, suspect rhabdomyolosis contributing to elevated LFTs. Agree w N-acetylcysteine protocol. Trend LFTs and PT/INR, renal function. If changes in mental status, worsening coag & renal function, recommend transfer to tertiary care center w liver transplant support. - Maddrey Discriminant Function score <32, will defer steroids for now. - ETOH cessation and rehab recommended. Supervising Physician Co-Signing Physician Notes I have personally seen and examined the patient with ELANA Gonzales on 06/23/2018. Her note reflects my exam and findings. I agree with her impression and plan. Follow H/H. Close follow up of electrolytes. Kevin Coy M.D. History of Present Illness Reason for Consultation: GI Bleeding Requesting Physician: Dr. Khoi Chi Attending Physician: Dr. Kevin Coy History of Present Illness Pt is a 53 y/o female who was taken to ED after falling yesterday found to be in metabolic acidosis, TYRONE, ETOH ketosis, having elevated BSG, also passing mucoid bloody stools. She has previously been admitted in of this year under 302 for attempted suicide. At that time GI is involved in her care for ETOH hepatitis, ETOH pancreatitis. Pt continues to drink ETOH up till yesterday - Vodka about 1/2 bottle a day. Per son, pt had plans to commit suicide again by ingesting ETOH. She appears alert, oriented x 3, but tremulous in ICU bed today. c/o "hurts all over". No CP, SOB. Having abd pain mostly on upper abd area. Per RN, she's passing small amts of mucoid burgundy colored stools. No butch n/v w hematemesis, coffee ground emesis or melena. She's been hypotensive, BP 70s-80s/50s-60s; HR 110s, RR 20s, Temp up to 37 last night Lab reviewed: WBC 10, H/H 9.8/30 after IVF and blood ct close to baseline. Plt 26. PT/INR 15/1.5, K 2.7, BUN/Cr 31/2.1, Mg 2.5. LFTs: Tbili 2.3, Dbili 1.9, AST 4355, ALT 734, AP 199, Total CK 8461, Lipase 1756. Troponin and Dimer elevated. No signs of DVT on doppler study. CT abd/pelvis showed signs of bibasilar atelectasis, + hepatic steatosis w mild marginal nodularity of liver, no signs of biliary ductal dilation or liver mass, + mild splenomegaly. There's mild pancreatic tail prominence w/o mass or ductal dilation or peripancraetic fluid. + distal esophagus wall thickening w hiatal hernia. + small bowel loops prominence suggestive of ileus. s/p R hemicolectomy changes. She had hx of gastric bypass w anastomotic stenosis s/p mutiple dilations. + ulcerations as well. She did have findings of grade I varices in her 2017 EGD. Colonoscopy 2015 unremarkable. Allergies Allergy/AdvReac Type Severity Reaction Status Date / Time clarithromycin Allergy Intermediate HIVES Verified 08/03/17 04:46 aspirin Allergy Mild Verified 08/03/17 04:46 tramadol Allergy Mild Verified 08/03/17 04:46 oxaprozin Allergy Unknown Verified 08/03/17 04:46 Home Medications Home Medications Medication Instructions Recorded Confirmed Type quetiapine 25 mg PO HS #30 tab 07/03/18 Rx [id number] [Creon] 1 cap PO TIDM #90 cap 07/04/18 Rx loperamide 2 mg PO Q6H PRN #60 cap 07/04/18 Rx magnesium oxide 800 mg PO HS #15 tab 07/04/18 Rx pantoprazole 40 mg PO BID #60 tab 07/04/18 Rx thiamine HCl (vitamin B1) [Vitamin 100 mg PO QAM #30 tab 07/04/18 Rx B-1] sucralfate [Carafate] 10 ml PO QID #420 ml 07/07/18 Rx metoclopramide HCl 5 mg PO Q6H PRN #60 tab 07/11/18 Rx tramadol 50 mg PO Q6H PRN #14 tab 07/11/18 Rx Patient History Medical History Lumbago (Chronic) Multiple sclerosis (Chronic) Alcohol abuse Cirrhosis Factitious disorder History of hysterectomy Opiate addiction Presence of intrathecal pump containing morphine 0.189mg/day and fentanyl 2.52mcg/day miminimal rate Sedative abuse Seizures None for greater than a year Surgical History History of Jeffy-en-Y gastric bypass History of cholecystectomy History of open reduction and internal fixation (ORIF) procedure Family History Other Aneurysm Cancer Stroke Social History Preferred Language: Latvian Communication Ability: Effective Beliefs That Will Affect Care: None marital status: Current Living Situation: Alone Other Information That Helps Us Care for You: No Feels Safe at Home: Yes Safety Concerns: Feels Safe At This Time Smoking Status: Never smoker Hx Alcohol Use: Yes Alcohol type: beer, wine and hard liquor Hx Substance Use: No Review of Systems Review of Systems: All systems reviewed & are unremarkable except as noted in HPI & below Physical Exam Constitutional: + ill appearing, + thin, cooperative and comfortable Eyes: PERRL, conjunctivae normal, anicteric sclerae ENMT: external ear and nose normal, oropharynx normal Respiratory: normal respiratory effort, lungs clear to auscultation Cardiovascular: RRR, no murmur, no edema Gastrointestinal (Abdomen): Percussion/Palpation: + abdomen tender (upper quadrants) and abdomen soft pain pump on R side of abd Skin: no rashes, warm and dry no jaundice Neurologic: tremulous Psychiatric: Orientation: alert and oriented x 3 Affect: + anxious affect Lymphatic: no lymphedema Results & Data Vital Signs (Past 12 Hours) Vital Signs Temp Pulse Resp BP Pulse Ox 06/23/18 08:00 36.9 C 110 H 25 H 98/69 L 95 06/23/18 07:30 108 H 21 98/61 L 96 06/23/18 07:00 110 H 26 H 107/70 95 06/23/18 06:15 111 H 21 96 06/23/18 06:01 111 H 24 112/66 95 06/23/18 06:00 113 H 24 96 06/23/18 05:45 116 H 24 104/66 94 06/23/18 05:30 115 H 29 H 111/72 95 06/23/18 05:15 112 H 21 105/64 95 06/23/18 05:00 112 H 21 105/65 97 06/23/18 04:52 113 H 21 111/59 L 96 06/23/18 04:46 117 H 21 96 06/23/18 04:45 118 H 21 96 06/23/18 04:30 110 H 22 117/73 95 06/23/18 04:16 119 H 24 99/89 L 95 06/23/18 04:15 117 H 25 H 96 06/23/18 04:00 36.8 C 111 H 24 100/61 93 06/23/18 03:45 115 H 28 H 106/80 94 06/23/18 03:30 114 H 26 H 109/63 94 06/23/18 03:16 118 H 22 99/66 L 95 06/23/18 03:15 117 H 17 95 06/23/18 03:00 111 H 22 97/60 L 93 06/23/18 02:45 116 H 21 98/50 L 95 06/23/18 02:30 115 H 24 91/49 L 99 06/23/18 02:15 117 H 26 H 96 06/23/18 02:00 118 H 21 98/51 L 95 06/23/18 01:45 117 H 29 H 105/69 92 06/23/18 01:30 123 H 23 94/53 L 97 06/23/18 01:15 118 H 26 H 83/52 L 97 Laboratory Results Laboratory Results - last 72 hr 06/22/18 06/22/18 06/22/18 19:40 19:40 19:40 WBC 10.71 RBC 4.59 Hgb 12.9 Hct 41.6 MCV 90.6 MCH 28.1 MCHC 31.0 L RDW Std Deviation 59.2 H RDW Coeff of Chetan 17.7 H Plt Count 208 MPV 9.1 Immature Gran % (Auto) 0.4 Neut % (Auto) 84.3 Lymph % (Auto) 5.6 Peach % (Auto) 9.6 Eos % (Auto) 0.0 Baso % (Auto) 0.1 Immature Gran # (Auto) 0.04 H Neut # (Auto) 9.03 H Lymph # (Auto) 0.60 L Peach # (Auto) 1.03 H Eos # (Auto) 0.00 Baso # (Auto) 0.01 Absolute Nucleated RBC 0.02 H Nucleated RBC % (auto) 0.2 Toxic Vacuolation 1+ Platelet Estimate RBC Morphology Echinocytes 1+ PT INR Fibrinogen Fibrin Degrad Products D-Dimer VBG pH VBG pCO2 VBG pO2 VBG HCO3 VBG O2 Saturation VBG Base Excess Barometric Pressure Sodium 139 Potassium Chloride 97 L Carbon Dioxide < 5 L* Anion Gap 38.0 H BUN 34 H Creatinine 3.50 H Est Cr Clr Drug Dosing Not Reportable Est GFR ( Amer) 16.3 Est GFR (Non-Af Amer) 14.0 BUN/Creatinine Ratio 9.7 L Glucose 62 L POC Glucose Osmolality Lactate Calcium 7.3 L Ionized Calcium Phosphorus 10.4 H Magnesium Total Bilirubin 2.7 H Direct Bilirubin Cancelled AST ALT 596 H Alkaline Phosphatase 224 H Total Creatine Kinase Troponin I Total Protein 7.6 Albumin 3.8 Globulin 3.8 Albumin/Globulin Ratio 1.0 Lipase Vitamin B12 Folate Beta-Hydroxybutyric Acd TSH 1.600 HCG, Qual Urine Color Urine Appearance Urine pH Ur Specific [place] Urine Protein Urine Glucose (UA) Urine Ketones Urine Blood Urine Nitrite Urine Bilirubin Urine Urobilinogen Ur Leukocyte Esterase Urine WBC (Auto) Urine RBC (Auto) U Hyaline Cast (Auto) U Epithel Cells (Auto) Urine Bacteria (Auto) Ur Renal Epithelial Cell Calcium Oxalate Crystal Granular Casts Urine Osmolality Nasal Screen MRSA (PCR) Stool Occult Bld Scrn Salicylates Urine Opiates Screen Ur Methadone, Qual Acetaminophen Urine Barbiturates Ur Phencyclidine (PCP) U Amphetamin/Meth Scrn MDMA (Ecstasy) Screen U Benzodiazepines Scrn Ur Cocaine Metabolite U Marijuana (THC) Screen Ethyl Alcohol mg/dL Blood Type Antibody Screen Crossmatch 06/22/18 06/22/18 06/22/18 19:40 19:41 19:41 WBC RBC Hgb Hct MCV MCH MCHC RDW Std Deviation RDW Coeff of Chetan Plt Count MPV Immature Gran % (Auto) Neut % (Auto) Lymph % (Auto) Peach % (Auto) Eos % (Auto) Baso % (Auto) Immature Gran # (Auto) Neut # (Auto) Lymph # (Auto) Peach # (Auto) Eos # (Auto) Baso # (Auto) Absolute Nucleated RBC Nucleated RBC % (auto) Toxic Vacuolation Platelet Estimate RBC Morphology Echinocytes PT 12.2 H INR 1.2 H Fibrinogen Fibrin Degrad Products D-Dimer VBG pH VBG pCO2 VBG pO2 VBG HCO3 VBG O2 Saturation VBG Base Excess Barometric Pressure Sodium Potassium Chloride Carbon Dioxide Anion Gap BUN Creatinine Est Cr Clr Drug Dosing Est GFR ( Amer) Est GFR (Non-Af Amer) BUN/Creatinine Ratio Glucose POC Glucose Osmolality Lactate Calcium Ionized Calcium Phosphorus Magnesium Total Bilirubin Direct Bilirubin AST ALT Alkaline Phosphatase Total Creatine Kinase Troponin I Total Protein Albumin Globulin Albumin/Globulin Ratio Lipase Vitamin B12 Folate Beta-Hydroxybutyric Acd TSH HCG, Qual Urine Color Yellow Urine Appearance Clear Urine pH 5.0 Ur Specific [place] 1.016 Urine Protein 1+ H Urine Glucose (UA) Negative Urine Ketones 2+ H Urine Blood Negative Urine Nitrite Negative Urine Bilirubin Negative Urine Urobilinogen Negative Ur Leukocyte Esterase Negative Urine WBC (Auto) 1-5 Urine RBC (Auto) 0-4 U Hyaline Cast (Auto) 1-5 U Epithel Cells (Auto) 10-20 H Urine Bacteria (Auto) Negative Ur Renal Epithelial Cell Calcium Oxalate Crystal Granular Casts Urine Osmolality Nasal Screen MRSA (PCR) Stool Occult Bld Scrn Salicylates Urine Opiates Screen Neg Ur Methadone, Qual Neg Acetaminophen Urine Barbiturates Neg Ur Phencyclidine (PCP) Neg U Amphetamin/Meth Scrn Neg MDMA (Ecstasy) Screen Neg U Benzodiazepines Scrn Neg Ur Cocaine Metabolite Neg U Marijuana (THC) Screen Neg Ethyl Alcohol mg/dL Blood Type Antibody Screen Crossmatch 06/22/18 06/22/18 06/22/18 21:31 21:32 21:32 WBC RBC Hgb Hct MCV MCH MCHC RDW Std Deviation RDW Coeff of Chetan Plt Count MPV Immature Gran % (Auto) Neut % (Auto) Lymph % (Auto) Peach % (Auto) Eos % (Auto) Baso % (Auto) Immature Gran # (Auto) Neut # (Auto) Lymph # (Auto) Peach # (Auto) Eos # (Auto) Baso # (Auto) Absolute Nucleated RBC Nucleated RBC % (auto) Toxic Vacuolation Platelet Estimate RBC Morphology Echinocytes PT INR Fibrinogen Fibrin Degrad Products D-Dimer VBG pH VBG pCO2 VBG pO2 VBG HCO3 VBG O2 Saturation VBG Base Excess Barometric Pressure Sodium Potassium Chloride Carbon Dioxide Anion Gap BUN Creatinine Est Cr Clr Drug Dosing Est GFR ( Amer) Est GFR (Non-Af Amer) BUN/Creatinine Ratio Glucose POC Glucose Osmolality 375 H* Lactate Calcium Ionized Calcium Phosphorus Magnesium Total Bilirubin Direct Bilirubin AST ALT Alkaline Phosphatase Total Creatine Kinase Troponin I Total Protein Albumin Globulin Albumin/Globulin Ratio Lipase Vitamin B12 Folate Beta-Hydroxybutyric Acd TSH HCG, Qual Urine Color Urine Appearance Urine pH Ur Specific [place] Urine Protein Urine Glucose (UA) Urine Ketones Urine Blood Urine Nitrite Urine Bilirubin Urine Urobilinogen Ur Leukocyte Esterase Urine WBC (Auto) Urine RBC (Auto) U Hyaline Cast (Auto) U Epithel Cells (Auto) Urine Bacteria (Auto) Ur Renal Epithelial Cell Calcium Oxalate Crystal Granular Casts Urine Osmolality Nasal Screen MRSA (PCR) Stool Occult Bld Scrn Salicylates Cancelled Urine Opiates Screen Ur Methadone, Qual Acetaminophen Cancelled Urine Barbiturates Ur Phencyclidine (PCP) U Amphetamin/Meth Scrn MDMA (Ecstasy) Screen U Benzodiazepines Scrn Ur Cocaine Metabolite U Marijuana (THC) Screen Ethyl Alcohol mg/dL 211.4 H Blood Type Antibody Screen Crossmatch 06/22/18 06/22/18 06/22/18 21:32 21:32 21:32 WBC RBC Hgb Hct MCV MCH MCHC RDW Std Deviation RDW Coeff of Chetan Plt Count MPV Immature Gran % (Auto) Neut % (Auto) Lymph % (Auto) Peach % (Auto) Eos % (Auto) Baso % (Auto) Immature Gran # (Auto) Neut # (Auto) Lymph # (Auto) Peach # (Auto) Eos # (Auto) Baso # (Auto) Absolute Nucleated RBC Nucleated RBC % (auto) Toxic Vacuolation Platelet Estimate RBC Morphology Echinocytes PT INR Fibrinogen Fibrin Degrad Products D-Dimer VBG pH 6.96 L VBG pCO2 21 L VBG pO2 77 VBG HCO3 5 VBG O2 Saturation 86.6 VBG Base Excess -25.8 Barometric Pressure 732.8 Sodium Potassium Chloride Carbon Dioxide Anion Gap BUN Creatinine Est Cr Clr Drug Dosing Est GFR ( Amer) Est GFR (Non-Af Amer) BUN/Creatinine Ratio Glucose POC Glucose Osmolality Lactate Calcium Ionized Calcium Phosphorus Magnesium Total Bilirubin Direct Bilirubin 1.7 H AST ALT Alkaline Phosphatase Total Creatine Kinase Troponin I 0.027 Total Protein Albumin Globulin Albumin/Globulin Ratio Lipase Vitamin B12 Folate Beta-Hydroxybutyric Acd TSH HCG, Qual Negative Urine Color Urine Appearance Urine pH Ur Specific [place] Urine Protein Urine Glucose (UA) Urine Ketones Urine Blood Urine Nitrite Urine Bilirubin Urine Urobilinogen Ur Leukocyte Esterase Urine WBC (Auto) Urine RBC (Auto) U Hyaline Cast (Auto) U Epithel Cells (Auto) Urine Bacteria (Auto) Ur Renal Epithelial Cell Calcium Oxalate Crystal Granular Casts Urine Osmolality Nasal Screen MRSA (PCR) Stool Occult Bld Scrn Salicylates Urine Opiates Screen Ur Methadone, Qual Acetaminophen Urine Barbiturates Ur Phencyclidine (PCP) U Amphetamin/Meth Scrn MDMA (Ecstasy) Screen U Benzodiazepines Scrn Ur Cocaine Metabolite U Marijuana (THC) Screen Ethyl Alcohol mg/dL Blood Type Antibody Screen Crossmatch 06/22/18 06/22/18 06/22/18 22:10 23:44 23:45 WBC RBC Hgb Hct MCV MCH MCHC RDW Std Deviation RDW Coeff of Chetan Plt Count MPV Immature Gran % (Auto) Neut % (Auto) Lymph % (Auto) Peach % (Auto) Eos % (Auto) Baso % (Auto) Immature Gran # (Auto) Neut # (Auto) Lymph # (Auto) Peach # (Auto) Eos # (Auto) Baso # (Auto) Absolute Nucleated RBC Nucleated RBC % (auto) Toxic Vacuolation Platelet Estimate RBC Morphology Echinocytes PT INR Fibrinogen Fibrin Degrad Products D-Dimer VBG pH VBG pCO2 VBG pO2 VBG HCO3 VBG O2 Saturation VBG Base Excess Barometric Pressure Sodium Potassium Chloride Carbon Dioxide Anion Gap BUN Creatinine Est Cr Clr Drug Dosing Est GFR ( Amer) Est GFR (Non-Af Amer) BUN/Creatinine Ratio Glucose POC Glucose 400 H* 452 H* Osmolality Lactate 9.8 H* Calcium Ionized Calcium Phosphorus Magnesium Total Bilirubin Direct Bilirubin AST ALT Alkaline Phosphatase Total Creatine Kinase Troponin I Total Protein Albumin Globulin Albumin/Globulin Ratio Lipase Vitamin B12 Folate Beta-Hydroxybutyric Acd TSH HCG, Qual Urine Color Urine Appearance Urine pH Ur Specific [place] Urine Protein Urine Glucose (UA) Urine Ketones Urine Blood Urine Nitrite Urine Bilirubin Urine Urobilinogen Ur Leukocyte Esterase Urine WBC (Auto) Urine RBC (Auto) U Hyaline Cast (Auto) U Epithel Cells (Auto) Urine Bacteria (Auto) Ur Renal Epithelial Cell Calcium Oxalate Crystal Granular Casts Urine Osmolality Nasal Screen MRSA (PCR) Stool Occult Bld Scrn Salicylates Urine Opiates Screen Ur Methadone, Qual Acetaminophen Urine Barbiturates Ur Phencyclidine (PCP) U Amphetamin/Meth Scrn MDMA (Ecstasy) Screen U Benzodiazepines Scrn Ur Cocaine Metabolite U Marijuana (THC) Screen Ethyl Alcohol mg/dL Blood Type Antibody Screen Crossmatch 06/23/18 06/23/18 06/23/18 00:54 00:54 00:54 WBC 3.75 L D RBC 3.36 L Hgb 9.3 L D Hct 29.7 L MCV 88.4 MCH 27.7 MCHC 31.3 L RDW Std Deviation 56.8 H RDW Coeff of Chetan 17.4 H Plt Count 83 L D MPV 9.7 Immature Gran % (Auto) 0.3 Neut % (Auto) 83.7 Lymph % (Auto) 12.8 Peach % (Auto) 3.2 Eos % (Auto) 0.0 Baso % (Auto) 0.0 Immature Gran # (Auto) 0.01 Neut # (Auto) 3.14 Lymph # (Auto) 0.48 L Peach # (Auto) 0.12 Eos # (Auto) 0.00 Baso # (Auto) 0.00 Absolute Nucleated RBC Nucleated RBC % (auto) Toxic Vacuolation Occasional Platelet Estimate Decreased L RBC Morphology Unremarkable Echinocytes PT INR Fibrinogen Fibrin Degrad Products D-Dimer VBG pH VBG pCO2 VBG pO2 VBG HCO3 VBG O2 Saturation VBG Base Excess Barometric Pressure Sodium 142 Potassium 4.3 Chloride 103 Carbon Dioxide 12 L Anion Gap 27.0 H BUN 32 H Creatinine 2.88 H D Est Cr Clr Drug Dosing 20.1 Est GFR ( Amer) 20.6 Est GFR (Non-Af Amer) 17.8 BUN/Creatinine Ratio 11.1 Glucose 405 H* POC Glucose Osmolality Lactate Calcium 5.0 L* D Ionized Calcium 0.74 L* Phosphorus Magnesium 1.6 L Total Bilirubin Direct Bilirubin AST ALT Alkaline Phosphatase Total Creatine Kinase Troponin I Total Protein Albumin Globulin Albumin/Globulin Ratio Lipase 1756 H Vitamin B12 Folate Beta-Hydroxybutyric Acd 64.35 H TSH HCG, Qual Urine Color Urine Appearance Urine pH Ur Specific [place] Urine Protein Urine Glucose (UA) Urine Ketones Urine Blood Urine Nitrite Urine Bilirubin Urine Urobilinogen Ur Leukocyte Esterase Urine WBC (Auto) Urine RBC (Auto) U Hyaline Cast (Auto) U Epithel Cells (Auto) Urine Bacteria (Auto) Ur Renal Epithelial Cell Calcium Oxalate Crystal Granular Casts Urine Osmolality Nasal Screen MRSA (PCR) Stool Occult Bld Scrn Salicylates Urine Opiates Screen Ur Methadone, Qual Acetaminophen Urine Barbiturates Ur Phencyclidine (PCP) U Amphetamin/Meth Scrn MDMA (Ecstasy) Screen U Benzodiazepines Scrn Ur Cocaine Metabolite U Marijuana (THC) Screen Ethyl Alcohol mg/dL Blood Type Antibody Screen Crossmatch 06/23/18 06/23/18 06/23/18 00:54 00:54 01:45 WBC RBC Hgb Hct MCV MCH MCHC RDW Std Deviation RDW Coeff of Chetan Plt Count MPV Immature Gran % (Auto) Neut % (Auto) Lymph % (Auto) Peach % (Auto) Eos % (Auto) Baso % (Auto) Immature Gran # (Auto) Neut # (Auto) Lymph # (Auto) Peach # (Auto) Eos # (Auto) Baso # (Auto) Absolute Nucleated RBC Nucleated RBC % (auto) Toxic Vacuolation Platelet Estimate RBC Morphology Echinocytes PT INR Fibrinogen Fibrin Degrad Products D-Dimer VBG pH 7.15 L VBG pCO2 29 L VBG pO2 46 VBG HCO3 10 VBG O2 Saturation 76.0 VBG Base Excess -17.6 Barometric Pressure Sodium Potassium Chloride Carbon Dioxide Anion Gap BUN Creatinine Est Cr Clr Drug Dosing Est GFR ( Amer) Est GFR (Non-Af Amer) BUN/Creatinine Ratio Glucose POC Glucose Osmolality Lactate Calcium Ionized Calcium Phosphorus Magnesium Total Bilirubin Direct Bilirubin AST ALT Alkaline Phosphatase Total Creatine Kinase Troponin I Total Protein Albumin Globulin Albumin/Globulin Ratio Lipase Vitamin B12 Folate Beta-Hydroxybutyric Acd TSH HCG, Qual Urine Color Urine Appearance Urine pH Ur Specific [place] Urine Protein Urine Glucose (UA) Urine Ketones Urine Blood Urine Nitrite Urine Bilirubin Urine Urobilinogen Ur Leukocyte Esterase Urine WBC (Auto) Urine RBC (Auto) U Hyaline Cast (Auto) U Epithel Cells (Auto) Urine Bacteria (Auto) Ur Renal Epithelial Cell Calcium Oxalate Crystal Granular Casts Urine Osmolality Nasal Screen MRSA (PCR) Negative Stool Occult Bld Scrn Salicylates Urine Opiates Screen Ur Methadone, Qual Acetaminophen Urine Barbiturates Ur Phencyclidine (PCP) U Amphetamin/Meth Scrn MDMA (Ecstasy) Screen U Benzodiazepines Scrn Ur Cocaine Metabolite U Marijuana (THC) Screen Ethyl Alcohol mg/dL Blood Type A Positive Antibody Screen NEGATIVE Crossmatch See Detail 06/23/18 06/23/18 06/23/18 01:46 01:46 02:13 WBC RBC Hgb Hct MCV MCH MCHC RDW Std Deviation RDW Coeff of Chetan Plt Count MPV Immature Gran % (Auto) Neut % (Auto) Lymph % (Auto) Peach % (Auto) Eos % (Auto) Baso % (Auto) Immature Gran # (Auto) Neut # (Auto) Lymph # (Auto) Peach # (Auto) Eos # (Auto) Baso # (Auto) Absolute Nucleated RBC Nucleated RBC % (auto) Toxic Vacuolation Platelet Estimate RBC Morphology Echinocytes PT INR Fibrinogen Fibrin Degrad Products D-Dimer VBG pH VBG pCO2 VBG pO2 VBG HCO3 VBG O2 Saturation VBG Base Excess Barometric Pressure Sodium Potassium Chloride Carbon Dioxide Anion Gap BUN Creatinine Est Cr Clr Drug Dosing Est GFR ( Amer) Est GFR (Non-Af Amer) BUN/Creatinine Ratio Glucose POC Glucose Osmolality Lactate Calcium Ionized Calcium Phosphorus Magnesium Total Bilirubin Direct Bilirubin AST ALT Alkaline Phosphatase Total Creatine Kinase Troponin I Total Protein Albumin Globulin Albumin/Globulin Ratio Lipase Vitamin B12 Folate Beta-Hydroxybutyric Acd TSH HCG, Qual Urine Color Urine Appearance Urine pH Ur Specific [place] Urine Protein Urine Glucose (UA) Urine Ketones Urine Blood Urine Nitrite Urine Bilirubin Urine Urobilinogen Ur Leukocyte Esterase Urine WBC (Auto) 1-5 Urine RBC (Auto) 0-4 U Hyaline Cast (Auto) >30 H U Epithel Cells (Auto) >30 H Urine Bacteria (Auto) 1+ H Ur Renal Epithelial Cell 10-20 H Calcium Oxalate Crystal Present A Granular Casts 20-30 H Urine Osmolality 399 L Nasal Screen MRSA (PCR) Stool Occult Bld Scrn Positive A Salicylates Urine Opiates Screen Ur Methadone, Qual Acetaminophen Urine Barbiturates Ur Phencyclidine (PCP) U Amphetamin/Meth Scrn MDMA (Ecstasy) Screen U Benzodiazepines Scrn Ur Cocaine Metabolite U Marijuana (THC) Screen Ethyl Alcohol mg/dL Blood Type Antibody Screen Crossmatch 06/23/18 06/23/18 06/23/18 03:39 04:34 04:34 WBC 2.72 L RBC 3.65 L Hgb 10.1 L Hct 31.5 L MCV 86.3 MCH 27.7 MCHC 32.1 RDW Std Deviation 54.6 H RDW Coeff of Chetan 17.1 H Plt Count 35 L D MPV 9.2 Immature Gran % (Auto) 0.4 Neut % (Auto) 85.7 Lymph % (Auto) 11.0 Peach % (Auto) 2.9 Eos % (Auto) 0.0 Baso % (Auto) 0.0 Immature Gran # (Auto) 0.01 Neut # (Auto) 2.33 Lymph # (Auto) 0.30 L Peach # (Auto) 0.08 L Eos # (Auto) 0.00 Baso # (Auto) 0.00 Absolute Nucleated RBC Nucleated RBC % (auto) Toxic Vacuolation 1+ Platelet Estimate SIGNIFIC DECREASED RBC Morphology Echinocytes PT 14.6 H INR 1.5 H Fibrinogen Fibrin Degrad Products D-Dimer VBG pH VBG pCO2 VBG pO2 VBG HCO3 VBG O2 Saturation VBG Base Excess Barometric Pressure Sodium Potassium Chloride Carbon Dioxide Anion Gap BUN Creatinine Est Cr Clr Drug Dosing Est GFR ( Amer) Est GFR (Non-Af Amer) BUN/Creatinine Ratio Glucose POC Glucose 407 H* Osmolality Lactate Calcium Ionized Calcium Phosphorus Magnesium Total Bilirubin Direct Bilirubin AST ALT Alkaline Phosphatase Total Creatine Kinase Troponin I Total Protein Albumin Globulin Albumin/Globulin Ratio Lipase Vitamin B12 Folate Beta-Hydroxybutyric Acd TSH HCG, Qual Urine Color Urine Appearance Urine pH Ur Specific [place] Urine Protein Urine Glucose (UA) Urine Ketones Urine Blood Urine Nitrite Urine Bilirubin Urine Urobilinogen Ur Leukocyte Esterase Urine WBC (Auto) Urine RBC (Auto) U Hyaline Cast (Auto) U Epithel Cells (Auto) Urine Bacteria (Auto) Ur Renal Epithelial Cell Calcium Oxalate Crystal Granular Casts Urine Osmolality Nasal Screen MRSA (PCR) Stool Occult Bld Scrn Salicylates Urine Opiates Screen Ur Methadone, Qual Acetaminophen Urine Barbiturates Ur Phencyclidine (PCP) U Amphetamin/Meth Scrn MDMA (Ecstasy) Screen U Benzodiazepines Scrn Ur Cocaine Metabolite U Marijuana (THC) Screen Ethyl Alcohol mg/dL Blood Type Antibody Screen Crossmatch 06/23/18 06/23/18 06/23/18 04:34 04:34 04:34 WBC RBC Hgb Hct MCV MCH MCHC RDW Std Deviation RDW Coeff of Chetan Plt Count MPV Immature Gran % (Auto) Neut % (Auto) Lymph % (Auto) Peach % (Auto) Eos % (Auto) Baso % (Auto) Immature Gran # (Auto) Neut # (Auto) Lymph # (Auto) Peach # (Auto) Eos # (Auto) Baso # (Auto) Absolute Nucleated RBC Nucleated RBC % (auto) Toxic Vacuolation Platelet Estimate RBC Morphology Echinocytes PT INR Fibrinogen Fibrin Degrad Products D-Dimer VBG pH 7.28 L VBG pCO2 38 VBG pO2 43 VBG HCO3 17 VBG O2 Saturation 73.0 VBG Base Excess -9.0 Barometric Pressure Sodium Potassium Chloride Carbon Dioxide Anion Gap BUN Creatinine Est Cr Clr Drug Dosing Est GFR ( Amer) Est GFR (Non-Af Amer) BUN/Creatinine Ratio Glucose POC Glucose Osmolality 343 H Lactate Calcium Ionized Calcium Phosphorus Magnesium Total Bilirubin Direct Bilirubin AST ALT Alkaline Phosphatase Total Creatine Kinase Troponin I Total Protein Albumin Globulin Albumin/Globulin Ratio Lipase Vitamin B12 > 2000 H Folate > 24.00 Beta-Hydroxybutyric Acd TSH HCG, Qual Urine Color Urine Appearance Urine pH Ur Specific [place] Urine Protein Urine Glucose (UA) Urine Ketones Urine Blood Urine Nitrite Urine Bilirubin Urine Urobilinogen Ur Leukocyte Esterase Urine WBC (Auto) Urine RBC (Auto) U Hyaline Cast (Auto) U Epithel Cells (Auto) Urine Bacteria (Auto) Ur Renal Epithelial Cell Calcium Oxalate Crystal Granular Casts Urine Osmolality Nasal Screen MRSA (PCR) Stool Occult Bld Scrn Salicylates Urine Opiates Screen Ur Methadone, Qual Acetaminophen Urine Barbiturates Ur Phencyclidine (PCP) U Amphetamin/Meth Scrn MDMA (Ecstasy) Screen U Benzodiazepines Scrn Ur Cocaine Metabolite U Marijuana (THC) Screen Ethyl Alcohol mg/dL Blood Type Antibody Screen Crossmatch 06/23/18 06/23/18 06/23/18 04:34 04:34 04:34 WBC RBC Hgb Hct MCV MCH MCHC RDW Std Deviation RDW Coeff of Chetan Plt Count MPV Immature Gran % (Auto) Neut % (Auto) Lymph % (Auto) Peach % (Auto) Eos % (Auto) Baso % (Auto) Immature Gran # (Auto) Neut # (Auto) Lymph # (Auto) Peach # (Auto) Eos # (Auto) Baso # (Auto) Absolute Nucleated RBC Nucleated RBC % (auto) Toxic Vacuolation Platelet Estimate RBC Morphology Echinocytes PT INR Fibrinogen Fibrin Degrad Products D-Dimer VBG pH VBG pCO2 VBG pO2 VBG HCO3 VBG O2 Saturation VBG Base Excess Barometric Pressure Sodium 137 Potassium 3.2 L D Chloride 98 Carbon Dioxide 18 L Anion Gap 21.0 H BUN 32 H Creatinine 2.59 H Est Cr Clr Drug Dosing 22.3 Est GFR ( Amer) 23.4 Est GFR (Non-Af Amer) 20.2 BUN/Creatinine Ratio 12.4 Glucose 411 H* POC Glucose Osmolality Lactate 4.7 H* Calcium 5.4 L* Ionized Calcium 0.73 L* Phosphorus 3.9 D Magnesium 2.5 H Total Bilirubin 2.3 H Direct Bilirubin 1.9 H AST 4355 H ALT 734 H Alkaline Phosphatase 199 H Total Creatine Kinase 8461 H Troponin I 0.183 H* Total Protein 5.7 L D Albumin 2.7 L Globulin Albumin/Globulin Ratio Lipase Vitamin B12 Folate Beta-Hydroxybutyric Acd 39.04 H TSH HCG, Qual Urine Color Urine Appearance Urine pH Ur Specific [place] Urine Protein Urine Glucose (UA) Urine Ketones Urine Blood Urine Nitrite Urine Bilirubin Urine Urobilinogen Ur Leukocyte Esterase Urine WBC (Auto) Urine RBC (Auto) U Hyaline Cast (Auto) U Epithel Cells (Auto) Urine Bacteria (Auto) Ur Renal Epithelial Cell Calcium Oxalate Crystal Granular Casts Urine Osmolality Nasal Screen MRSA (PCR) Stool Occult Bld Scrn Salicylates Urine Opiates Screen Ur Methadone, Qual Acetaminophen Urine Barbiturates Ur Phencyclidine (PCP) U Amphetamin/Meth Scrn MDMA (Ecstasy) Screen U Benzodiazepines Scrn Ur Cocaine Metabolite U Marijuana (THC) Screen Ethyl Alcohol mg/dL Blood Type Antibody Screen Crossmatch 06/23/18 06/23/18 06/23/18 04:36 05:37 05:38 WBC RBC Hgb Hct MCV MCH MCHC RDW Std Deviation RDW Coeff of Chetan Plt Count MPV Immature Gran % (Auto) Neut % (Auto) Lymph % (Auto) Peach % (Auto) Eos % (Auto) Baso % (Auto) Immature Gran # (Auto) Neut # (Auto) Lymph # (Auto) Peach # (Auto) Eos # (Auto) Baso # (Auto) Absolute Nucleated RBC Nucleated RBC % (auto) Toxic Vacuolation Platelet Estimate RBC Morphology Echinocytes PT INR Fibrinogen 158 L Fibrin Degrad Products D-Dimer 5030 H* VBG pH VBG pCO2 VBG pO2 VBG HCO3 VBG O2 Saturation VBG Base Excess Barometric Pressure Sodium Potassium Chloride Carbon Dioxide Anion Gap BUN Creatinine Est Cr Clr Drug Dosing Est GFR ( Amer) Est GFR (Non-Af Amer) BUN/Creatinine Ratio Glucose POC Glucose 435 H* 441 H* Osmolality Lactate Calcium Ionized Calcium Phosphorus Magnesium Total Bilirubin Direct Bilirubin AST ALT Alkaline Phosphatase Total Creatine Kinase Troponin I Total Protein Albumin Globulin Albumin/Globulin Ratio Lipase Vitamin B12 Folate Beta-Hydroxybutyric Acd TSH HCG, Qual Urine Color Urine Appearance Urine pH Ur Specific [place] Urine Protein Urine Glucose (UA) Urine Ketones Urine Blood Urine Nitrite Urine Bilirubin Urine Urobilinogen Ur Leukocyte Esterase Urine WBC (Auto) Urine RBC (Auto) U Hyaline Cast (Auto) U Epithel Cells (Auto) Urine Bacteria (Auto) Ur Renal Epithelial Cell Calcium Oxalate Crystal Granular Casts Urine Osmolality Nasal Screen MRSA (PCR) Stool Occult Bld Scrn Salicylates Urine Opiates Screen Ur Methadone, Qual Acetaminophen Urine Barbiturates Ur Phencyclidine (PCP) U Amphetamin/Meth Scrn MDMA (Ecstasy) Screen U Benzodiazepines Scrn Ur Cocaine Metabolite U Marijuana (THC) Screen Ethyl Alcohol mg/dL Blood Type Antibody Screen Crossmatch 06/23/18 06/23/18 06/23/18 05:38 08:56 11:31 WBC RBC Hgb Hct MCV MCH MCHC RDW Std Deviation RDW Coeff of Chetan Plt Count MPV Immature Gran % (Auto) Neut % (Auto) Lymph % (Auto) Peach % (Auto) Eos % (Auto) Baso % (Auto) Immature Gran # (Auto) Neut # (Auto) Lymph # (Auto) Peach # (Auto) Eos # (Auto) Baso # (Auto) Absolute Nucleated RBC Nucleated RBC % (auto) Toxic Vacuolation Platelet Estimate RBC Morphology Echinocytes PT INR Fibrinogen Fibrin Degrad Products >40 H D-Dimer VBG pH VBG pCO2 VBG pO2 VBG HCO3 VBG O2 Saturation VBG Base Excess Barometric Pressure Sodium 136 Potassium 2.7 L D Chloride 95 L Carbon Dioxide 25 Anion Gap 16.0 H BUN 33 H Creatinine 2.31 H Est Cr Clr Drug Dosing 25.1 Est GFR ( Amer) 26.9 Est GFR (Non-Af Amer) 23.2 BUN/Creatinine Ratio 14.1 Glucose 328 H* POC Glucose Osmolality Lactate Calcium 6.6 L D Ionized Calcium Phosphorus Magnesium Total Bilirubin Direct Bilirubin AST ALT Alkaline Phosphatase Total Creatine Kinase Troponin I Total Protein Albumin Globulin Albumin/Globulin Ratio Lipase Vitamin B12 Folate Beta-Hydroxybutyric Acd 5.34 H TSH HCG, Qual Urine Color Urine Appearance Urine pH Ur Specific [place] Urine Protein Urine Glucose (UA) Urine Ketones Urine Blood Urine Nitrite Urine Bilirubin Urine Urobilinogen Ur Leukocyte Esterase Urine WBC (Auto) Urine RBC (Auto) U Hyaline Cast (Auto) U Epithel Cells (Auto) Urine Bacteria (Auto) Ur Renal Epithelial Cell Calcium Oxalate Crystal Granular Casts Urine Osmolality Nasal Screen MRSA (PCR) Stool Occult Bld Scrn Salicylates Urine Opiates Screen Ur Methadone, Qual Acetaminophen Urine Barbiturates Ur Phencyclidine (PCP) U Amphetamin/Meth Scrn MDMA (Ecstasy) Screen U Benzodiazepines Scrn Ur Cocaine Metabolite U Marijuana (THC) Screen Ethyl Alcohol mg/dL 42.7 H Blood Type Antibody Screen Crossmatch 06/23/18 06/23/18 06/23/18 11:31 11:31 11:31 WBC 2.54 L RBC 3.60 L Hgb 9.8 L Hct 30.1 L MCV 83.6 MCH 27.2 MCHC 32.6 RDW Std Deviation 51.1 H RDW Coeff of Chetan 16.8 H Plt Count 26 L* MPV 9.5 Immature Gran % (Auto) Neut % (Auto) Lymph % (Auto) Peach % (Auto) Eos % (Auto) Baso % (Auto) Immature Gran # (Auto) Neut # (Auto) Lymph # (Auto) Peach # (Auto) Eos # (Auto) Baso # (Auto) Absolute Nucleated RBC Nucleated RBC % (auto) Toxic Vacuolation Platelet Estimate RBC Morphology Echinocytes PT INR Fibrinogen Fibrin Degrad Products D-Dimer VBG pH VBG pCO2 VBG pO2 VBG HCO3 VBG O2 Saturation VBG Base Excess Barometric Pressure Sodium 137 Potassium 2.7 L Chloride 94 L Carbon Dioxide 26 Anion Gap 17.0 H BUN 31 H Creatinine 2.19 H Est Cr Clr Drug Dosing 26.4 Est GFR ( Amer) 28.7 Est GFR (Non-Af Amer) 24.7 BUN/Creatinine Ratio 14.2 Glucose 204 H POC Glucose Osmolality Lactate 7.5 H* Calcium 6.5 L Ionized Calcium Phosphorus Magnesium Total Bilirubin Direct Bilirubin AST ALT Alkaline Phosphatase Total Creatine Kinase Troponin I Total Protein Albumin Globulin Albumin/Globulin Ratio Lipase Vitamin B12 Folate Beta-Hydroxybutyric Acd TSH HCG, Qual Urine Color Urine Appearance Urine pH Ur Specific [place] Urine Protein Urine Glucose (UA) Urine Ketones Urine Blood Urine Nitrite Urine Bilirubin Urine Urobilinogen Ur Leukocyte Esterase Urine WBC (Auto) Urine RBC (Auto) U Hyaline Cast (Auto) U Epithel Cells (Auto) Urine Bacteria (Auto) Ur Renal Epithelial Cell Calcium Oxalate Crystal Granular Casts Urine Osmolality Nasal Screen MRSA (PCR) Stool Occult Bld Scrn Salicylates Urine Opiates Screen Ur Methadone, Qual Acetaminophen Urine Barbiturates Ur Phencyclidine (PCP) U Amphetamin/Meth Scrn MDMA (Ecstasy) Screen U Benzodiazepines Scrn Ur Cocaine Metabolite U Marijuana (THC) Screen Ethyl Alcohol mg/dL Blood Type Antibody Screen Crossmatch 06/23/18 11:47 WBC RBC Hgb Hct MCV MCH MCHC RDW Std Deviation RDW Coeff of [place]tan Plt Count MPV Immature Gran % (Auto) Neut % (Auto) Lymph % (Auto) Peach % (Auto) Eos % (Auto) Baso % (Auto) Immature Gran # (Auto) Neut # (Auto) Lymph # (Auto) Peach # (Auto) Eos # (Auto) Baso # (Auto) Absolute Nucleated RBC Nucleated RBC % (auto) Toxic Vacuolation Platelet Estimate RBC Morphology Echinocytes PT 15.2 H INR 1.5 H Fibrinogen 157 L Fibrin Degrad Products D-Dimer VBG pH VBG pCO2 VBG pO2 VBG HCO3 VBG O2 Saturation VBG Base Excess Barometric Pressure Sodium Potassium Chloride Carbon Dioxide Anion Gap BUN Creatinine Est Cr Clr Drug Dosing Est GFR ( Amer) Est GFR (Non-Af Amer) BUN/Creatinine Ratio Glucose POC Glucose Osmolality Lactate Calcium Ionized Calcium Phosphorus Magnesium Total Bilirubin Direct Bilirubin AST ALT Alkaline Phosphatase Total Creatine Kinase Troponin I Total Protein Albumin Globulin Albumin/Globulin Ratio Lipase Vitamin B12 Folate Beta-Hydroxybutyric Acd TSH HCG, Qual Urine Color Urine Appearance Urine pH Ur Specific [place] Urine Protein Urine Glucose (UA) Urine Ketones Urine Blood Urine Nitrite Urine Bilirubin Urine Urobilinogen Ur Leukocyte Esterase Urine WBC (Auto) Urine RBC (Auto) U Hyaline Cast (Auto) U Epithel Cells (Auto) Urine Bacteria (Auto) Ur Renal Epithelial Cell Calcium Oxalate Crystal Granular Casts Urine Osmolality Nasal Screen MRSA (PCR) Stool Occult Bld Scrn Salicylates Urine Opiates Screen Ur Methadone, Qual Acetaminophen Urine Barbiturates Ur Phencyclidine (PCP) U Amphetamin/Meth Scrn MDMA (Ecstasy) Screen U Benzodiazepines Scrn Ur Cocaine Metabolite U Marijuana (THC) Screen Ethyl Alcohol mg/dL Blood Type Antibody Screen Crossmatch
[2018-06-23] MEDS: DEXTROSE 50% 50 ML SYRINGE IV PRN ×2 (14:55→16:50)
--- NOTE | 2018-06-23 16:31 | Pharmacy Report ---
Pharmacy Abx Initial Consult - Date of Service June 23, 2018 - Pharmacy Dosing Scope Date of Consult: 06/22 Consultation requested by: Dr. Vera Pharmacy is consulted to initiate vancomycin and Zosyn IV dosing therapy, order appropriate labs and adjust drug dose/frequency. - Subjective The patient is a 53 year old F admitted on 06/22/18 23:07. - Objective Height: 5 ft 5 in Weight: 59.6 kg Vital Signs (Past 12hrs): Vital Signs Temp Pulse Resp BP Pulse Ox 06/23/18 16:00 36.9 C 119 H 31 H 124/84 94 06/23/18 15:45 115 H 27 H 116/82 93 06/23/18 15:30 116 H 28 H 120/97 91 06/23/18 15:22 36.6 C 115 H 22 126/82 91 06/23/18 15:00 115 H 26 H 126/82 90 06/23/18 14:30 118 H 27 H 126/78 92 06/23/18 14:00 108 H 27 H 120/78 93 06/23/18 13:30 111 H 25 H 115/77 93 06/23/18 13:01 126 H 26 H 129/108 H 91 06/23/18 12:30 113 H 25 H 124/83 92 06/23/18 12:00 115 H 31 H 114/79 92 06/23/18 11:30 114 H 24 115/83 92 06/23/18 11:00 118 H 18 120/85 91 06/23/18 10:31 118 H 39 H 128/95 89 L 06/23/18 10:00 108 H 27 H 113/78 94 06/23/18 09:30 110 H 26 H 99/68 L 92 06/23/18 09:00 108 H 26 H 97/72 L 95 06/23/18 08:30 103 H 25 H 89/59 L 95 06/23/18 08:00 36.9 C 110 H 25 H 98/69 L 95 06/23/18 07:30 108 H 21 98/61 L 96 06/23/18 07:00 110 H 26 H 107/70 95 06/23/18 06:15 111 H 21 96 06/23/18 06:01 111 H 24 112/66 95 06/23/18 06:00 113 H 24 96 06/23/18 05:45 116 H 24 104/66 94 06/23/18 05:30 115 H 29 H 111/72 95 06/23/18 05:15 112 H 21 105/64 95 06/23/18 05:00 112 H 21 105/65 97 06/23/18 04:52 113 H 21 111/59 L 96 06/23/18 04:46 117 H 21 96 06/23/18 04:45 118 H 21 96 06/23/18 04:30 110 H 22 117/73 95 Lab Results (24hrs): Laboratory Tests (24 Hours) 06/23/18 06/23/18 06/23/18 11:31 11:31 08:56 WBC 2.54 L Neut # (Auto) Creatinine 2.19 H 2.31 H Est Cr Clr Drug Dosing 26.4 25.1 Total Creatine Kinase 06/23/18 06/23/18 06/23/18 04:34 04:34 00:54 WBC 2.72 L Neut # (Auto) 2.33 Creatinine 2.59 H 2.88 H D Est Cr Clr Drug Dosing 22.3 20.1 Total Creatine Kinase 8461 H 06/23/18 06/22/18 06/22/18 00:54 19:40 19:40 WBC 3.75 L D 10.71 Neut # (Auto) 3.14 9.03 H Creatinine 3.50 H Est Cr Clr Drug Dosing Not Reportable Total Creatine Kinase Micro Results: 06/23/18 08:56 Fungal Smear - Final Blood Fungal Culture - Pending 06/22/18 22:10 Blood Culture - Pending Blood 06/22/18 22:04 Blood Culture - Pending Blood - Risk Factors for Resistance * 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 She was empirically placed on vancomycin and Zosyn due to her history of bacteremia. Of note, it looks like she did develop TYRONE after prolonged vanc therapy in the past (most likely secondary to supratherapeutic levels and prolonged therapy). Plan Vancomycin IV * Estimated PK Parameters: Vd 0.7 L/kg, Juan 0.026 hr-1, t1/2 26.6 hr * Loading dose: 1250 mg (22 mg/kg) given overnight * No maintenance dose will be ordered since renal function changing rapidly: 1000 mg IV (16.7 mg/kg) x 1 at 1800 tonight (when level expected to be ~18) * Will need to re-dose tomorrow depending on renal function * If therapy to be continued > 48 hours, consider obtaining level to evaluate more accurate dose Piperacillin/tazobactam * 4.5 g bolus administered over 30 minutes, then 3.375 g IV extended infusion every 8 hours for CrCl greater than 20 mL/min * Not using aggressive dose of 4.5 gm as patient < 60 kg Pharmacy will continue to follow and will adjust dose/frequency as necessary. Thank you.
[2018-06-23] MEDS: PIPERACILLIN/TAZOBACTAM 3.375 GM in DEXTROSE 5% 100 ML IV SCH (17:08)
[2018-06-23] MEDS ORDERED: VANCOMYCIN HCL 1,000 MG in SODIUM CHLORIDE 0.9% 250 ML IV ONE (18:00)
--- NOTE | 2018-06-23 18:03 | XRay Report ---
XR chest 1V portable CLINICAL HISTORY: confirm central line placement COMPARISON STUDY: 06/22/2018 FINDINGS: The cardiac and mediastinal contours remain stable. There are low lung volumes with hypoven tilatory changes. There is a right internal jugular central venous catheter. The tip projects over th e distal superior vena cava. There is no pneumothorax.[ IMPRESSION: 1. The right internal jugular venous catheter is positioned within the superior vena cava 2. No evidence of pneumothorax 3. Low lung volumes with hypoventilatory changes. Electronically signed by: Yahir Valencia M.D. 06/23/2018 6:02 PM
[2018-06-23 18:50] LABS: INR 1.4 (0.9-1.1); Prothrombin Time 13.9 Seconds (9.0-12.0)
[2018-06-23 18:56] LABS: Fibrinogen 242 mg/dl (184-400)
[2018-06-23 19:25] LABS: Hematocrit (blood only) 30.5 % (37-47); Hemoglobin 10.1 g/dL (12.0-16.0); Mean Corpuscular Hgb Conc 33.1 g/dL (32-36); Mean Corpuscular Volume 81.6 fL (80-100); Nucleated RBC # (auto) 0.06 K/uL (0-0); Nucleated RBC % (auto) 0.9 %; RDW Standard Deviation 50.8 fL (36.4-46.3); Red Blood Count 3.74 M/uL (4.2-5.4); White Blood Count 7.36 K/uL (4.8-10.8)
[2018-06-23 19:30] LABS: Platelet Count 34 K/uL (130-400)
[2018-06-23 19:42] LABS: BUN Creatinine Ratio 14.6 (10-20); Calcium 6.9 mg/dl (8.5-10.1); Creatinine Clr Calc Pharmacy 31.5 ml/min; Est GFR (African American) 35.4; Est GFR (Non-African American) 30.5
[2018-06-23 19:48] LABS: Potassium 3.3 mmol/L (3.5-5.1)
[2018-06-23 22:57] LABS: BUN Creatinine Ratio 15.1 (10-20); Calcium 6.3 mg/dl (8.5-10.1); Creatinine Clr Calc Pharmacy 35.1 ml/min; Est GFR (African American) 40.4; Est GFR (Non-African American) 34.8
[2018-06-23 23:10] LABS: Potassium 2.7 mmol/L (3.5-5.1)
--- NOTE | 2018-06-23 23:49 | Hospitalist Progress Note ---
Date of Service June 23, 2018 Assessment & Plan (1) Metabolic acidosis: (1) Metabolic acidosis: 1. Neuro: patient AA&O to person and place, unable to tell date/situation, answers questions appropriately. No evidence of active EtOH withdrawal at this time. Nonfocal neurological exam, patient is reluctant to move LUE secondary to pain. -Delirium prevention strategies with frequent orientation -Patient at high risk for EtOH withdrawal, has had severe withdrawal in the past. Uncertain when her last drink was. WbLK=894.4. Phenobarbital as needed for withdrawal symptoms -Thiamine 100mg IV daily -Patient remains tachycardic today. -Not in delirum tremens at this time. -WILL continue to monitor. Patient has a one to one due to possible suicide attempt, 2. Cardiovascular: Patient tachycardic, hypotensive, s/p 4L fluid in ICU (NSS x 2, D5NSS x 1 and Banana bag x 1). Levophed initiated with improvement in BP. Patient with echo 06/2016 which showed LVH, mildly reduced EF at 45-50%, regional wma, TR, Grade I diastolic dysfunction. Troponin detectable at 0.027, EKG with ST, no acute ST changes to signify ischemia -Continue Levophed -Repeat troponin 3. Pulmonary: adequate oxygenation and ventilation on NC. CXR with no acute pulmonary process -Continue to monitor -Supplemental O2 as needed to maintain sats > 94% 4. GI: Patient with EtOH abuse, cirrhosis of the liver with Grade I esophageal varices noted on prior EKG, elevated liver enzymes, pancreatitis and GIB Elevated LFTs - most likely EtOH hepatitis vs steatosis, MDF < 32, will not initiate treatment for EtOH hepatitis. Repeat LFTs in AM Pancreatitis - elevated lipase, fat stranding noted on CT. Keep NPO, pain and nausea control. IVF GIB - patient with bloody mucoid BM in ER. No nausea/vomiting/hematemesis or CGE. History of Grade I varices. Will check hemoccult, trend CBC, type and crossed, transfuse for active bleeding, symptomatic anemia or Hg < 7. GI consult Cirrhosis - cautious use of IVF, may consider Albumin. Octreotide gtt for now. GERD - Pepcid 5. - severe metabolic acidosis, multifactorial to include TYRONE, elevated lactate, possible ingestion and EtOH intoxication with alcohol ketosis. Osmolar gap calculates to 21.6 however there is no a difference between BMP glucose and obtaining sample for osmolar gap -Patient has been empirically started on omeprazole as the methyl alcohol and ethylene glycol are reference labs -Repeat alcohol not obtainedContinue omeprazole in the interim - Anion gap improving Alcoholic ketoacidosis: Improving Lactic acidosis: improving Hypokalemia -60 M EQ potassium chloride -Bicarb infusion at 200 mL's per hour Acute Kidney Injury: Improving 6. Heme - GIB as above, continue to monitor -CBC daily 7. ID - afebrile, WBC=10.71 -Follow culture results -Empiric Vancomycin and Zosyn for now, adjust based on cultures 8. Endocrine - elevated blood glucose, patient with no documented history of DM -Insulin infusion -improving. -Check A1C 9. Psych - patient with reported plan for suicide -Suicide precautions -Psychiatry consultation when acute issues resolve Spent 35 minutes in management of patient. Subjective 53 yo female in ICU. Patient reports feeling overall tired. She complains of pain all over but does not further elaborate on the pain. She attribute the pain to the fall. Review of Systems Review of Systems: All systems reviewed & are unremarkable except as noted in HPI & below Physical Exam Physical Exam: General: patient ill in appearance, AA&O to self and location Skin: warm, dry, intact, scattered bruising HEENT: NC/AT, Pupils reactive bilaterally, EOMI, anicteric sclera, conjunctiva without injection, external ear normal to inspection and nontender, nares patent, dry mucus membranes, poor dentition, no oropharyngeal lesions, neck supple, trachea midline, no LAD, no thyromegaly, no JVD Heart: +S1/S2, regular, tachycardic, no m/r/g Lungs: equal air entry bilaterally, no rales/rhonchi/wheezes Abd: +BS, soft, NT/ND, no masses/organomegaly/ascites Ext: cool, 1+ pulses in UE/LE bilaterally, no clubbing/cyanosis or edema Neuro: moving all extremities on command with equal strength, AA&O x 2, speech intact, no facial droop, no tremors Results & Data Vital Signs (Past 12 Hours) Vital Signs Temp Pulse Resp BP Pulse Ox 06/23/18 23:00 110 H 24 126/75 96 06/23/18 22:00 112 H 30 H 126/82 93 06/23/18 21:00 105 H 22 120/69 91 06/23/18 20:00 37.2 C 108 H 25 H 126/77 92 06/23/18 19:31 105 H 06/23/18 19:01 110 H 27 H 117/81 92 06/23/18 18:08 108 H 26 H 120/82 91 06/23/18 17:15 119 H 28 H 130/83 93 06/23/18 17:01 124 H 24 138/98 90 06/23/18 16:45 120 H 33 H 137/87 91 06/23/18 16:30 120 H 25 H 134/90 91 06/23/18 16:15 118 H 25 H 125/89 93 06/23/18 16:00 36.9 C 119 H 31 H 124/84 94 06/23/18 15:45 115 H 27 H 116/82 93 06/23/18 15:30 116 H 28 H 120/97 91 06/23/18 15:22 36.6 C 115 H 22 126/82 91 06/23/18 15:00 115 H 26 H 126/82 90 06/23/18 14:30 118 H 27 H 126/78 92 06/23/18 14:00 108 H 27 H 120/78 93 06/23/18 13:30 111 H 25 H 115/77 93 06/23/18 13:01 126 H 26 H 129/108 H 91 06/23/18 12:30 113 H 25 H 124/83 92 06/23/18 12:00 115 H 31 H 114/79 92
[2018-06-24] MEDS: POTASSIUM CHLORIDE / WTR 20 MEQ/100 ML PLCT IV SCH ×4 (00:24→06:17)
[2018-06-24] MEDS: PIPERACILLIN/TAZOBACTAM 3.375 GM in DEXTROSE 5% 100 ML IV SCH ×2 (01:36→08:23)
[2018-06-24 02:20] LABS: Mean Corpuscular Hgb Conc 34.5 g/dL (32-36); Mean Corpuscular Volume 79.9 fL (80-100); Nucleated RBC # (auto) 0.09 K/uL (0-0); Nucleated RBC % (auto) 0.9 %; RDW Coefficient of Variation 17.7 % (11.5-14.5); RDW Standard Deviation 51.4 fL (36.4-46.3); Red Blood Count 3.63 M/uL (4.2-5.4)
[2018-06-24 02:30] LABS: Fibrinogen 220 mg/dl (184-400); INR 1.6 (0.9-1.1); Prothrombin Time 15.9 Seconds (9.0-12.0)
[2018-06-24 02:34] LABS: Mean Platelet Volume 9.9 fL (7.4-10.4); Platelet Count 45 K/uL (130-400)
[2018-06-24 02:52] LABS: Albumin Level 2.4 gm/dl (3.4-5.0); BUN Creatinine Ratio 13.6 (10-20); Bilirubin Direct 1.4 mg/dl (0-0.2); Creatinine Clr Calc Pharmacy 36.4 ml/min; Est GFR (African American) 42.2; Est GFR (Non-African American) 36.4; Magnesium 1.6 mg/dl (1.8-2.4); Potassium 2.7 mmol/L (3.5-5.1); Total Protein 4.9 gm/dl (6.4-8.2)
[2018-06-24] MEDS ORDERED: MAGNESIUM SULFATE / D5W 1 GM/100 ML BAG IV ONE (03:08)
[2018-06-24 03:14] LABS: Calcium 6.3 mg/dl (8.5-10.1)
[2018-06-24] MEDS: PANTOprazole 40 MG in DEXTROSE 5% 100 ML IV SCH ×5 (03:51→23:10)
[2018-06-24] MEDS: SODIUM BICARBONATE 8.4% 150 MEQ in WATER, STERILE 1,000 ML IV SCH (05:13)
[2018-06-24] MEDS: ONDANSETRON INJ 2 MG/ML 2 ML VIAL IV SCH ×4 (05:32→23:45)
[2018-06-24] MEDS: INSULIN ASPART 100 UNITS/ML 3 ML PEN SC SCH ×4 (06:18→21:06)
[2018-06-24] MEDS: OCTREOTIDE ACETATE 500 MCG in 0.9 % SODIUM CHLORIDE 100 ML IV SCH ×2 (06:21→16:24)
[2018-06-24 06:31] LABS: BUN Creatinine Ratio 13.4 (10-20); Calcium 6.4 mg/dl (8.5-10.1); Creatinine Clr Calc Pharmacy 38.1 ml/min; Est GFR (African American) 44.6; Est GFR (Non-African American) 38.5; Potassium 2.8 mmol/L (3.5-5.1)
[2018-06-24] MEDS ORDERED: INSULIN ASPART 100 UNITS/ML 3 ML PEN SC SCH (07:30)
[2018-06-24] MEDS: THIAMINE HCL 100 MG in SYRINGE 9 ML IV SCH (08:23)
[2018-06-24] MEDS ORDERED: PROMETHAZINE HCL 25 MG TAB PO ONE (08:27)
--- NOTE | 2018-06-24 08:38 | Critical Care Progress Note ---
Date of Service June 24, 2018 Assessment & Plan (1) Admitted to intensive care unit: Reason Critically Ill: 53-year-old female admitted for acute encephalopathy and metabolic acidosis in the setting of excessive alcohol intake with subsequent profound coagulopathy and concern for DIC. PLAN: Neuro: Acute encephalopathy, improved Acute alcohol intoxication, Improving/improved, fomepizole treatment discontinued Headache: Reports a 8/10 headache which came on over 30 minutes this morning associated with some blurry vision. Feels similar to previous migraines. Given her risk of bleeding in the setting of coagulopathy and thrombocytopenia have ordered a CThead/brain noncontrast. CThead with no acute findings. Approximately 1/700 risk of false negative. Continue serial exams. Phenergan IV x1 for headache/migraine control. Plus magnesium as below. May try prednisone versus dexamethasone for refractory headache CV: Hypotension, improved -Weaned off norepinephrine for greater than 24 hours. Adequate systolic/diastolic pressures today. Renal: Increased anion gap metabolic acidosis, resolved -Osmolar gap to 21.6 yesterday, empirically started fomepizole which has since been discontinued Anion closed this morning, but elevated serum CO2 of 41. Alcoholic ketoacidosis: Improving Hypokalemia likely 2/2 diarrhea and GI losses - hypokalemic to 2.5 this morning with magnesium 1.6 Magnesium repletion 2 g IV, 40 M EQ skater p.o. to follow K rider 10 M EQ x4 Mag-Ox 800 mg nightly started Acute Kidney Injury: TYRONE with peaked creatinine of 3.5 on 06/22 from a baseline of normal approximately 1.0 Continues to downtrend BMP daily ID: History bacteremia and fungemia -Blood culture 06/22 x 2 preliminary negative, no growth to date Fungal culture no growth to date, pending final read. Fungal smear negative. Received initial empiric vancomycin and Zosyn No clinical signs of infection, afebrile, leukocytosis. Empiric antibiotics discontinued GI/Nutrition: Alcoholic cirrhosis with history of grade 1 varices on previous EGD -Most recent EGD had a marginal ulcer at Jeffy-en-Y anastomotic site -Gastroenterology consulted. Recommend keeping n.p.o., continuing pantoprazole drip with octreotide drip, and deferring EGD at this time Vitamin K reversal yesterday. Notify GI if signs of GI bleeding increases or worsens. Do not suspect GI hemorrhage at this time. INR downtrending from 1.6-1.4 today. Additional dose of vitamin K 5 mg given today. Acute GI bleed/hemorrhage Type and cross on file Pantoprazole and octreotide drip as above Daily CBC, reticulocyte count ordered for the morning. Transaminitis with elevated T bili, D bili CK approximately 8000 yesterday. Received acetylcysteine protocol out of concern for rhabdo contribution to acute transaminitis. Likely due to underlying alcoholic hepatic disease with acute exacerbation as above Heme: Anemia at baseline Hemoglobin 9.3 from 10 Continues to have Dark loose bowel movements. Status post vitamin K repletion DIC -INR downtrending from 1.6-1.4 today -Initial labs including fibrinogen 157, elevated fibrin degradation products, and elevated d-dimer concerning for smoldering DIC -Received 1 unit of cryoprecipitate yesterday with normalization of fibrinogen today. -Venous duplex did not show any evidence of DVT Endocrine: ICU hyperglycemia protocol Hyperyglycemia: improving -Glucose between 100s and 400s overnight, converted from insulin gtt. to subcu insulin Continue ICU insulin protocol Vascular access: Right IJ central line present. Code Status: Full Thank you for allowing me to contribute to the care of this patient. This patient was seen under the supervision of attending press operator instant print shop Dr. Tao. Please see his comments and for additional recommendations at documentation. Supervising Physician Co-Signing Physician Notes Dr. Lofton was resident physician during care of patient. I separately evaluated patient for riley portions of the history and the exam. I was present during the critical portion of medical decision making, and I discussed the case with the resident. I generally agree with the findings and plan. Ongoing anemia and thrombocytopenia I believe this is secondary to bone marrow toxicity from repeated and long-standing alcohol use and abuse. Vitamin K 5 mg oral, fibrinogen within normal limits will discontinue serial coagulation profiles as I do not believe this is DIC no stigmata of thrombosis, venous duplex negative Lactate essentially negative we will stop trending TYRONE continues to improve, significant hypokalemia undergoing aggressive repletion Starting 400 mg Mag-Ox orally giving 2 g magnesium IV today, potassium riders and 40 M EQ's K-Dur by mouth Patient's newest complaint is that of migraine, will treat with steroids, magnesium, Phenergan. Literature indicates no role of narcotic use for chronic migraine. Disposal: Continued ICU care given significant electrolyte disturbances. I do not believe the patient is actively hemorrhaging from her gastrointestinal tract, follow-up GI recommendations. Hopefully we will be able to discontinue the central line tomorrow. I have personally spent 35 minutes of critical care time in the direct management of this patient. This is a life/limb threatening event. This includes time spent evaluating patient, direct bedside care, chart review, michael cing orders, interpretation of diagnostic studies, discussion with consultants, patient, and/or family members regarding treatment decisions, as well as other required patient management activities. This time is exclusive of all separately billable procedures, and teaching time and separate from and in addition to any other critical care service time. Pierce Wren reports that she continues to be uncomfortable this morning. She continues to feel achy with pain all over. She denies focal pain, but endorses the pain overall is worse on her left compared to her right side. She feels short of breath this morning, and achy. She endorses a new headache this morning. She notes that the headache came on over a 30-minute period, Is 8 out of 10 in intensity, and is in the front of her head between her eyes, and feels similar to migraine she had when she was younger. She feels her vision is a little bit blurry, denies aura or flashers. No nausea or vomiting. She feels the intensity is similar to prior migraines, and that this headache is not worse than when she had when she was younger. She has had multiple bowel movements overnight, reports that they have been black like coffee grounds. She has not had vomiting overnight, although has had some retching and dry heaving. She endorses diffuse achiness including her abdomen, no focal area of pain. Review of Systems Review of Systems: Constitutional: Denies fever, chills. Endorses malaise, diffuse achiness Eyes: Denies eye pain. Endorses blurry vision without flashers, floaters. Cardiovascular: Endorses chest pain, chest achiness. Denies chest pressure. Feels shaky, endorses palpitations. Respiratory: Endorses shortness of breath, cough. Denies difficulty breathing. Gastrointestinal: Endorses abdomianl pain, nonfocal. Endorses has had soem dry heaving but no emesis. Endorses diarrhea with dark/black stool. Genitourinary: Denies pain with urination (crockett in place) Musculoskeletal: Endorses weakness, diffuse muscle aches/pain, diffuse joint aches/pain Integumentary:Denies rash. Neurological: Endorses headache. Denies numbness, tingling, focal weakness. Physical Exam Physical Exam: General: A&Ox3. Thin appearing female laying in bed, NAD but appears ill. Tremulous. Cooperative. No jaundice HEENT: Atraumatic, normocephalic. No scleral icterus Pulm: CTAB A&P. -wheezes, -rales, -rhonchi. Symmetrical chest rise. No respiratory distress. Cardiac: RRR, -mrg. Abdomen: Diffuse tenderness to palpation without rebound. Soft. Nondistended. Neuro: PERLAA. Tremulous, ~2-4hz most pronouced in hands. Combat Systems Operator strength 5/5. Wrist flexion/extension, elbow flexion/extension, ankle dorsiflexion/plantarflexion intact with full strength. No facial asymmetry. Results & Data Vital Signs (Past 12 Hours) Vital Signs Temp Pulse Resp BP Pulse Ox Pulse Ox 06/24/18 06:04 111 H 23 113/77 96 06/24/18 05:00 109 H 21 139/80 94 06/24/18 04:01 37.1 C 103 H 24 115/80 92 06/24/18 02:00 115 H 22 100/79 94 06/24/18 01:46 107 H 06/24/18 01:00 115 H 23 112/64 90 06/24/18 00:42 93 06/24/18 00:00 37.1 C 101 H 26 H 114/68 94 06/23/18 23:00 110 H 24 126/75 96 06/23/18 22:00 112 H 30 H 126/82 93 06/23/18 21:00 105 H 22 120/69 91 06/23/18 20:00 37.2 C 108 H 25 H 126/77 92 06/23/18 19:31 105 H 06/23/18 19:01 110 H 27 H 117/81 92 Resident Activity Tracking Resident Involvement: Resident Care Provided Care Provided: Adult Hospital Medicine
[2018-06-24] MEDS ORDERED: PROMETHAZINE HCL 12.5 MG in SODIUM CHLORIDE 0.9% 50 ML IV STA (08:52)
[2018-06-24] MEDS ORDERED: INSULIN GLARGINE SOLOSTAR 100 UNITS/ML 3 ML PEN SC ONE (09:00)
--- NOTE | 2018-06-24 09:44 | CT Scan Report ---
CT head/brain wo con CT DOSE: 841.54 mGy.cm HISTORY: Headache new headache, concern SAH TECHNIQUE: Multiaxial CT images of the head were performed without the use of intravenous contrast. A dose lowering technique was utilized adhering to the principles of ALARA. Comparison: 06/23/2017 Findings: The paranasal sinuses and mastoid air cells are clear. The calvarium and skull base are int act. The ventricles and sulci are within normal limits. There is no mass, hematoma, midline shift, or acute infarct. Impression: No acute intracranial abnormality. The above report was generated using voice recognition software. It may contain grammatical, syntax or spelling errors. Electronically signed by: Mj Smith M.D. 06/24/2018 9:43 AM
[2018-06-24] MEDS: LORazepam 1 MG/2 ML VIAL IV PRN ×2 (10:09→23:39)
[2018-06-24 10:34] LABS: BUN Creatinine Ratio 12.1 (10-20); Calcium 6.6 mg/dl (8.5-10.1); Creatinine Clr Calc Pharmacy 38.3 ml/min; Est GFR (African American) 44.9; Est GFR (Non-African American) 38.8; Potassium 2.5 mmol/L (3.5-5.1)
[2018-06-24 10:51] LABS: Fibrinogen 257 mg/dl (184-400); INR 1.4 (0.9-1.1)
[2018-06-24 10:53] LABS: Hematocrit (blood only) 27.6 % (37-47); Hemoglobin 9.3 g/dL (12.0-16.0); Mean Corpuscular Volume 80.9 fL (80-100); RDW Standard Deviation 53.1 fL (36.4-46.3); Red Blood Count 3.41 M/uL (4.2-5.4); White Blood Count 7.42 K/uL (4.8-10.8)
[2018-06-24 11:03] LABS: Mean Corpuscular Hgb Conc 33.7 g/dL (32-36); Mean Platelet Volume 8.7 fL (7.4-10.4); Nucleated RBC # (auto) 0.07 K/uL (0-0); Nucleated RBC % (auto) 0.9 %; Platelet Count 28 K/uL (130-400)
[2018-06-24 11:05] LABS: Platelet Estimate SIGNIFIC DECREASED (Normal)
[2018-06-24] MEDS: POTASSIUM CHLORIDE / WTR 10 MEQ/100 ML PLCT IV SCH ×4 (11:16→14:17)
[2018-06-24] MEDS: MAGNESIUM SULFATE / D5W 1 GM/100 ML BAG IV SCH ×2 (11:16→11:51)
[2018-06-24] MEDS ORDERED: POTASSIUM CHLORIDE 10 MEQ TABCR PO STA (13:58)
[2018-06-24] MEDS ORDERED: PHYTONADIONE 5 MG TAB PO STA (13:58)
[2018-06-24 15:04] LABS: BUN Creatinine Ratio 11.3 (10-20); Calcium 6.5 mg/dl (8.5-10.1); Creatinine Clr Calc Pharmacy 40.8 ml/min; Est GFR (African American) 48.4; Est GFR (Non-African American) 41.8; Potassium 2.5 mmol/L (3.5-5.1)
[2018-06-24] MEDS: NOREPINEPHRINE BIT INJ 8 MG in DEXTROSE 5% 500 ML IV SCH (15:16)
[2018-06-24] MEDS: MAGNESIUM OXIDE 400 MG TAB PO SCH (21:08)
--- NOTE | 2018-06-24 22:21 | Hospitalist Progress Note ---
Date of Service June 24, 2018 Assessment & Plan (1) Metabolic acidosis: (1) Metabolic acidosis: 1. Neuro: patient AA&O to person and place, unable to tell date/situation, answers questions appropriately. No evidence of active EtOH withdrawal at this time. Nonfocal neurological exam, patient is reluctant to move LUE secondary to pain. -Delirium prevention strategies with frequent orientation -Patient at high risk for EtOH withdrawal, has had severe withdrawal in the past. Uncertain when her last drink was. RlUL=968.4. Phenobarbital as needed for withdrawal symptoms -Thiamine 100mg IV daily -Patient no longer tachycardic -Not in delirum tremens at this time. -WILL continue to monitor. Patient has a one to one due to possible suicide attempt, 2. Cardiovascular: Patient tachycardic, hypotensive, s/p 4L fluid in ICU (NSS x 2, D5NSS x 1 and Banana bag x 1). Levophed initiated with improvement in BP. Patient with echo 06/2016 which showed LVH, mildly reduced EF at 45-50%, regional wma, TR, Grade I diastolic dysfunction. Troponin detectable at 0.027, EKG with ST, no acute ST changes to signify ischemia -Continue Levophed -Repeat troponin: peaked at 0.181; now trending down. 3. Pulmonary: adequate oxygenation and ventilation on NC. CXR with no acute pulmonary process -Continue to monitor -Supplemental O2 as needed to maintain sats > 94% 4. GI: Patient with EtOH abuse, cirrhosis of the liver with Grade I esophageal varices noted on prior EKG, elevated liver enzymes, pancreatitis and GIB Elevated LFTs - most likely EtOH hepatitis vs steatosis, MDF < 32, will not initiate treatment for EtOH hepatitis. Repeat LFTs in AM Pancreatitis - elevated lipase, fat stranding noted on CT. Keep NPO, pain and nausea control. IVF GIB - patient with bloody mucoid BM in ER. No nausea/vomiting/hematemesis or CGE. History of Grade I varices. GI consult Cirrhosis - cautious use of IVF, may consider Albumin. Octreotide gtt for now. GERD - Pepcid 5. - severe metabolic acidosis, multifactorial to include TYRONE, elevated lactate, possible ingestion and EtOH intoxication with alcohol ketosis. Osmolar gap calculates to 21.6 however there is no a difference between BMP glucose and obtaining sample for osmolar gap -Patient has been empirically started on omeprazole as the methyl alcohol and ethylene glycol are reference labs -Repeat alcohol not obtainedContinue omeprazole in the interim - Anion gap improving Alcoholic ketoacidosis: Improving Lactic acidosis: improving Hypokalemia - Patient continues to be hypokalemic at 2.5 with a magnesium 1.6 Ordered Magnesium 2 g IV, 40 M EQ skater p.o. to follow K rider 10 M EQ x4 Mag-Ox 800 mg nightly started Acute Kidney Injury: Improving 6. Heme - GIB as above, continue to monitor -CBC daily 7. ID - afebrile, WBC=10.71 -Follow culture results -Empiric Vancomycin and Zosyn for now, adjust based on cultures 8. Endocrine - elevated blood glucose, patient with no documented history of DM -Insulin infusion -improving. 9. Psych - patient with reported plan for suicide -Suicide precautions -Psychiatry consultation when acute issues resolve Spent 25 minutes in management of patient. Subjective Patient reports no new complaints. She is having loose stools though as per nursing staff. Patient denies any fever chills, and only reports feeling weak, Physical Exam Physical Exam: General: patient ill in appearance, AA&O to self and location Skin: warm, dry, intact, scattered bruising HEENT: NC/AT, Pupils reactive bilaterally, EOMI, anicteric sclera, conjunctiva without injection, external ear normal to inspection and nontender, nares patent, dry mucus membranes, poor dentition, no oropharyngeal lesions, neck supple, trachea midline, no LAD, no thyromegaly, no JVD Heart: +S1/S2, regular, tachycardic, no m/r/g Lungs: equal air entry bilaterally, no rales/rhonchi/wheezes Abd: +BS, soft, NT/ND, no masses/organomegaly/ascites Ext: cool, 1+ pulses in UE/LE bilaterally, no clubbing/cyanosis or edema Neuro: moving all extremities on command with equal strength, AA&O x 2, speech intact, no facial droop, no tremors Results & Data Vital Signs (Past 12 Hours) Vital Signs Temp Pulse Resp BP Pulse Ox 06/24/18 19:21 85 06/24/18 18:00 80 24 124/83 97 06/24/18 17:23 84 25 H 114/77 99 06/24/18 16:00 85 27 H 111/77 98 06/24/18 15:00 37.2 C 107 H 14 141/64 H 98 06/24/18 14:00 94 H 19 118/75 98 06/24/18 13:00 99 H 25 H 125/77 97 06/24/18 12:00 108 H 31 H 132/86 96 06/24/18 11:00 110 H 33 H 125/82 95
[2018-06-25] MEDS: OCTREOTIDE ACETATE 500 MCG in 0.9 % SODIUM CHLORIDE 100 ML IV SCH (01:41)
[2018-06-25] MEDS: PANTOprazole 40 MG in DEXTROSE 5% 100 ML IV SCH ×2 (05:03→08:40)
[2018-06-25] MEDS: ONDANSETRON INJ 2 MG/ML 2 ML VIAL IV SCH ×4 (05:05→23:52)
[2018-06-25 05:21] LABS: INR 1.2 (0.9-1.1)
[2018-06-25 05:36] LABS: Hemoglobin 8.6 g/dL (12.0-16.0); Mean Corpuscular Hgb Conc 33.1 g/dL (32-36); Mean Corpuscular Volume 83.1 fL (80-100); Platelet Count 16 K/uL (130-400); RDW Standard Deviation 54.3 fL (36.4-46.3); Red Blood Count 3.13 M/uL (4.2-5.4); White Blood Count 4.13 K/uL (4.8-10.8)
[2018-06-25 05:37] LABS: Basophils # (auto) 0.01 K/uL (0-0.2); Basophils % (auto) 0.2 %; Eosinophils # (auto) 0.09 K/uL (0-0.5); Eosinophils % (auto) 2.2 %; Immature Granulocytes # (auto) 0.01 K/uL (0.00-0.02); Immature Granulocytes % (auto) 0.2 %; Lymphocytes # (auto) 0.58 K/uL (1.2-3.4); Monocytes # (auto) 0.17 K/uL (0.11-0.59); Monocytes % (auto) 4.1 %; Neutrophils # (auto) 3.27 K/uL (1.4-6.5); Neutrophils % (auto) 79.3 %; Platelet Estimate SIGNIFIC DECREASED (Normal); Reticulocyte % 0.6 % (0.5-2.0); Reticulocytes # 0.02 10^6/uL (0.02-0.10)
[2018-06-25 06:06] LABS: Albumin Level 2.5 gm/dl (3.4-5.0); Bilirubin Direct 0.8 mg/dl (0-0.2); Bilirubin,Total 1.4 mg/dl (0.2-1); Magnesium 2.3 mg/dl (1.8-2.4); Phosphorus 1.2 mg/dl (2.5-4.9)
[2018-06-25] MEDS: INSULIN ASPART 100 UNITS/ML 3 ML PEN SC SCH ×4 (08:41→21:33)
[2018-06-25] MEDS: THIAMINE HCL 100 MG in SYRINGE 9 ML IV SCH (08:42)
[2018-06-25] MEDS: PANTOprazole 40 MG TAB PO SCH ×2 (09:44→21:28)
[2018-06-25 09:48] LABS: BUN Creatinine Ratio 10.1 (10-20); Calcium 7.5 mg/dl (8.5-10.1); Creatinine Clr Calc Pharmacy 60.3 ml/min; Est GFR (African American) 77.7; Potassium 2.1 mmol/L (3.5-5.1)
[2018-06-25] MEDS ORDERED: POTASSIUM PHOS 3 MMOL/1 ML INFUSION IV STA (10:32)
--- NOTE | 2018-06-25 10:32 | Critical Care Progress Note ---
Date of Service June 25, 2018 Assessment & Plan (1) Admitted to intensive care unit: Reason Critically Ill: 53-year-old male with acute encephalopathy profound metabolic acidosis PLAN: Neuro: Acute encephalopathy: Improved/resolved -Mental health able to proceed with evaluation CV: Hypotension: Resolved Fluids/Renal: High gap metabolic acidosis: Resolved Alcoholic ketoacidosis: Resolved Lactic acidosis: Resolved Hypokalemia and hypophosphatemia: Aggressive potassium phosphate replacement with additional magnesium ID: History bacteremia and fungemia: No growth to date -Discontinue antibiotics at this time GI/Nutrition: Cirrhosis: Remote history of grade 1 varices on previous EGD -Most recent EGD had a marginal ulcer at Jeffy-en-Y anastomotic site Acute gastrointestinal hemorrhage -Type and cross -PPI transition to twice daily -Wean off to octreotide Alcoholic hepatitis: Finishing mucous protocol Clear liquid diet add back Creon Heme: Anemia at baseline -Following H&H twice daily for any form of gastrointestinal hemorrhage DVT prophylaxis: Chemical prophylaxis is contraindicated at this time continue SCDs Endocrine: ICU hyperglycemia protocol Insulin infusion: Transitioned off -TSH within normal limits Vascular access: Right triple-lumen CVL placed in ED: Will discontinue once hypokalemia and hypophosphatemia resolved Code Status: Full Once patient's profound hypokalemia resolved she would be stable for downgrade out of the ICU. She remains critically ill due to profound hypokalemia. I have personally spent 30 minutes of critical care time in the direct management of this patient. This is a life/limb threatening event. This includes time spent evaluating patient, direct bedside care, chart review, placing orders, interpretation of diagnostic studies, discussion with consultants, patient, and/or family members regarding treatment decisions, as well as other required patient management activities. This time is exclusive of all separately billable procedures, and teaching time and separate from and in addition to any other critical care service time. Subjective Complains of headache, this is still similar to previous migraines, she reports she normally takes fentanyl for her migraines. Denies any improvement with Phenergan yesterday. Overall the patient is rather somnolent and slow to respond No overnight events. Physical Exam Physical Exam: General: Slow to respond, I feel the patient is not showing signs of alcohol withdrawal, will discontinue benzodiazepine and narcotic medication as I believe this is contributing to patient's somnolence. nontoxic. Skin: Warm, dry, Head: Atraumatic Ears, nose, mouth and throat: airway patent Cardiovascular: Normal peripheral perfusion Respiratory: no respiratory distress Gastrointestinal: Non distended Musculoskeletal: No deformity Results & Data Vital Signs (Past 12 Hours) Vital Signs Temp Pulse Resp BP Pulse Ox Pulse Ox 06/25/18 08:00 66 06/25/18 06:01 71 19 149/83 H 96 06/25/18 05:00 66 25 H 122/70 98 06/25/18 04:01 36.9 C 75 17 110/75 06/25/18 03:01 74 39 H 123/72 96 06/25/18 02:00 83 25 H 114/88 99 06/25/18 01:02 37.0 C 80 13 137/65 98 06/25/18 00:01 82 21 141/94 H 06/25/18 00:00 96 06/24/18 23:49 77 06/24/18 23:00 76 24 136/89 94
[2018-06-25] MEDS ORDERED: POTASSIUM PHOSPHATE 40 MMOL in SODIUM CHLORIDE 0.9% 1000ML 1,000 ML IV ONE (10:45)
[2018-06-25] MEDS: PANCREAZE (LIPASE 10,500U) CAP PO SCH ×2 (11:03→16:53)
[2018-06-25] MEDS: MAGNESIUM SULFATE / D5W 1 GM/100 ML BAG IV SCH ×3 (11:03→13:06)
[2018-06-25] MEDS ORDERED: PROMETHAZINE HCL 12.5 MG in SODIUM CHLORIDE 0.9% 50 ML IV STA (11:28)
[2018-06-25] MEDS ORDERED: LORazepam 1 MG/2 ML VIAL IV STA (15:14)
[2018-06-25 18:33] LABS: Hematocrit (blood only) 30.2 % (37-47); Hemoglobin 9.6 g/dL (12.0-16.0)
[2018-06-25 19:00] LABS: BUN Creatinine Ratio 8.3 (10-20); Calcium 7.5 mg/dl (8.5-10.1); Creatinine Clr Calc Pharmacy 66.5 ml/min; Est GFR (African American) 87.5; Est GFR (Non-African American) 75.5; Phosphorus 2.9 mg/dl (2.5-4.9); Potassium 2.6 mmol/L (3.5-5.1)
[2018-06-25] MEDS: MAGNESIUM OXIDE 400 MG TAB PO SCH (21:28)
--- NOTE | 2018-06-25 22:36 | Hospitalist Progress Note ---
Date of Service June 25, 2018 Assessment & Plan (1) Metabolic acidosis: (1) Metabolic acidosis: 1. Neuro: patient AA&O to person and place, unable to tell date/situation, answers questions appropriately. No evidence of active EtOH withdrawal at this time. Nonfocal neurological exam, patient is reluctant to move LUE secondary to pain. -Delirium prevention strategies with frequent orientation -Patient at high risk for EtOH withdrawal, has had severe withdrawal in the past. Uncertain when her last drink was. VyWA=459.4. Phenobarbital as needed for withdrawal symptoms -Thiamine 100mg IV daily -Patient no longer tachycardic -Not in delirum tremens at this time. -WILL continue to monitor. Patient has a one to one due to possible suicide attempt, 2. Cardiovascular: Patient tachycardic, hypotensive, s/p 4L fluid in ICU (NSS x 2, D5NSS x 1 and Banana bag x 1). Levophed initiated with improvement in BP. Patient with echo 06/2016 which showed LVH, mildly reduced EF at 45-50%, regional wma, TR, Grade I diastolic dysfunction. Troponin detectable at 0.027, EKG with ST, no acute ST changes to signify ischemia -Patient no longer requires vasopressors -Repeat troponin: peaked at 0.181; now trending down. 3. Pulmonary: adequate oxygenation and ventilation on NC. CXR with no acute pulmonary process -Continue to monitor -Supplemental O2 as needed to maintain sats > 94% 4. GI: Patient with EtOH abuse, cirrhosis of the liver with Grade I esophageal varices noted on prior EKG, elevated liver enzymes, pancreatitis and GIB Elevated LFTs - most likely EtOH hepatitis vs steatosis, MDF < 32, will not initiate treatment for EtOH hepatitis. Repeat LFTs in AM Pancreatitis - elevated lipase, fat stranding noted on CT. Keep NPO, pain and nausea control. IVF GIB - patient with bloody mucoid BM in ER. No nausea/vomiting/hematemesis or CGE. History of Grade I varices. GI consult Cirrhosis - cautious use of IVF, may consider Albumin. GERD - Pepcid 5. - severe metabolic acidosis, multifactorial to include TYRONE, elevated lactate, possible ingestion and EtOH intoxication with alcohol ketosis. Osmolar gap calculates to 21.6 however there is no a difference between BMP glucose and obtaining sample for osmolar gap -Patient has been empirically started on omeprazole as the methyl alcohol and ethylene glycol are reference labs -Repeat alcohol not obtainedContinue omeprazole in the interim - Anion gap improving Alcoholic ketoacidosis: Improving Lactic acidosis: improving Hypokalemia - Patient continues to be hypokalemic Will continue to aggressively replace. Willmonitor. Acute Kidney Injury: Improving 6. Heme - GIB as above, continue to monitor -CBC daily 7. ID - afebrile, WBC=10.71 -Follow culture results -Empiric Vancomycin and Zosyn for now, adjust based on cultures 8. Endocrine - elevated blood glucose, patient with no documented history of DM -Insulin infusion -improving. 9. Psych - patient with reported plan for suicide -Suicide precautions -Psychiatry consultation when acute issues resolve Spent 25 minutes in management of patient. Subjective Patient continues to be having frequent amount of diarrhea. Just this morning patient had about 4 loose stools. D/W Derrick Operator, patient will maintain in the ICU due to hypokalemia. Willl continue to monitor. Review of Systems Review of Systems: All systems reviewed & are unremarkable except as noted in HPI & below Physical Exam Physical Exam: General: patient ill in appearance, AA&O to self and location Skin: warm, dry, intact, scattered bruising HEENT: NC/AT, Pupils reactive bilaterally, EOMI, anicteric sclera, conjunctiva without injection, external ear normal to inspection and nontender, no LAD, no thyromegaly, no JVD Heart: +S1/S2, regular, tachycardic, no m/r/g Lungs: equal air entry bilaterally, no rales/rhonchi/wheezes Abd: +BS, soft, NT/ND, no masses/organomegaly/ascites Ext: cool, 1+ pulses in UE/LE bilaterally, no clubbing/cyanosis or edema Neuro: moving all extremities on command with equal strength, AA&O x 2, speech intact, no facial droop, no tremors Results & Data Vital Signs (Past 12 Hours) Vital Signs Temp Pulse Resp BP Pulse Ox 06/25/18 20:01 36.8 C 85 27 H 147/97 H 100 06/25/18 19:14 84 06/25/18 19:01 83 30 H 156/98 H 100 06/25/18 18:00 89 25 H 131/93 06/25/18 17:00 83 29 H 142/99 H 96 06/25/18 16:00 87 26 H 128/94 93 06/25/18 15:00 36.4 C L 75 19 154/90 H 100 06/25/18 14:00 85 19 139/83 90 06/25/18 13:00 86 23 151/86 H 95 06/25/18 12:00 36.9 C 74 22 135/84 94 06/25/18 11:00 66 18 152/83 H 93
[2018-06-26 04:48] LABS: Albumin Globulin Ratio 0.9 (0.9-2); Albumin Level 2.5 gm/dl (3.4-5.0); BUN Creatinine Ratio 9.7 (10-20); Bilirubin,Total 1.3 mg/dl (0.2-1); Calcium 7.5 mg/dl (8.5-10.1); Creatinine Clr Calc Pharmacy 91.9 ml/min; Est GFR (African American) 117.9; Est GFR (Non-African American) 101.7; Globulin 2.8 gm/dl (2.5-4.0); Potassium 2.5 mmol/L (3.5-5.1); Total Protein 5.3 gm/dl (6.4-8.2)
[2018-06-26] MEDS ORDERED: POTASSIUM PHOS 3 MMOL/1 ML INFUSION IV STA (04:54)
[2018-06-26] MEDS ORDERED: POTASSIUM PHOSPHATE 40 MMOL in SODIUM CHLORIDE 0.9% 1000ML 1,000 ML IV ONE (05:00)
[2018-06-26] MEDS: ONDANSETRON INJ 2 MG/ML 2 ML VIAL IV SCH ×4 (05:21→23:32)
[2018-06-26 06:15] LABS: Estimated Average Glucose 105 mg/dl; Hemoglobin A1C 5.3 % (4.5-5.6)
--- NOTE | 2018-06-26 08:18 | Hospitalist Progress Note ---
Date of Service June 26, 2018 Assessment & Plan (1) Metabolic acidosis: (1) toxic encephalopathy 1. 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 No evidence of active EtOH withdrawal at this time. Nonfocal neurological exam, patient is reluctant to move LUE secondary to pain. Pt is now barganing for more of her typical medicines, will add some scheduled librium and prm nucynta watching for recurrence of encephalopathy and also alcohol withdrawal -Delirium prevention strategies with frequent orientation -Patient at high risk for EtOH withdrawal, has had severe withdrawal in the past. librium scheduled -Thiamine 100mg IV daily One to one due to possible suicide attempt, 2. Cardiovascular: Patient initially tachycardic, hypotensive, s/p 4L fluid resuscitation and Levophed initiated with improvement in BP now off Levaphed. Echo 06/2016 which showed LVH, mildly reduced EF at 45-50%, regional wma, TR, Grade I diastolic dysfunction. Troponin detectable at 0.027, EKG with ST, no acute ST changes to signify ischemia, felt was demand ischemia 3. Pulmonary: Supplemental O2 as needed to maintain sats > 94% 4. GI: Patient with EtOH abuse, cirrhosis of the liver with Grade I esophageal varices noted on prior EGD, elevated liver enzymes, pancreatitis and GIB Elevated LFTs - most likely EtOH hepatitis vs steatosis, MDF < 32, did not initiate treatment for EtOH hepatitis. Pancreatitis - elevated lipase, fat stranding noted on CT. Keep NPO, pain and nausea control. IVF GIB - patient with bloody mucoid BM in ER. No nausea/vomiting/hematemesis GI consult Cirrhosis - cautious use of IVF, may consider Albumin. GERD - Pepcid 5. - severe metabolic acidosis, multifactorial to include TYRONE, elevated lactate, possible ingestion and EtOH intoxication with alcohol ketosis. Osmolar gap calculates to 21.6 however there is no a difference between BMP glucose and obtaining sample for osmolar gap -Patient has been empirically started on omeprazole as the methyl alcohol and ethylene glycol are reference labs -Repeat alcohol not obtained Continue omeprazole in the interim - Anion gap improving Alcoholic ketoacidosis: Improving Lactic acidosis: improving Hypokalemia continue to replete Acute Kidney Injury: Improving Heme - GIB as above, continue to monitor ID - afebrile, WBC=10.71-Empiric Vancomycin and Zosyn for now, adjust based on cultures Endocrine - elevated blood glucose, patient with no documented history of DM -Insulin infusion -improving. Psych - patient with reported plan for suicide -Suicide precautions -Psychiatry consultation when acute issues resolve Subjective Siena is awake and alert today she is now asking for many of her typical medi cations back such as Ativan and Ambien pain medication. She relates the story of how she is fractured her left leg hip and pelvis area. She states that she only drinks alcohol to help with her pain. She has had a pain pump before and she is been through different pain clinics and has failed them likely because of behavioral disturbances such as with her alcoholism Review of Systems Review of Systems: ROS: Patient complains of being fatigued and having pain No double vision blurry vision No problems with speech or swallowing No palpitations, chest pain or pressure No Wheezing or breathing issues No abdominal pain nausea vomiting diarrhea No burning urine urine frequency or changes in color Persistent left hip and thigh pain No skin rashes or oral lesions No unusual bruising or bleeding Chronic back pain but no numbness or loss of strength No changes in memory or confusion Physical Exam Physical Exam: The patient appeared well nourished and normally developed. Vital signs as documented. Head exam is unremarkable. normocephalic, atraumatic Neck is without jugular venous distension, thyromegaly, or lymphademopathy Lungs are clear to auscultation and percussion. Cardiac exam reveals Rhythm is regular. First and second heart sounds normal. Abdominal exam reveals normal bowel sounds, no masses, no organomegaly Extremities are nonedematous and both pedal pulses are present Neurologic exam is A&Ox3, no focal deficits, strength is equal bilateral Psychologically seems neither anxious or depressed Skin is warm Dry without bruises or lesions Results & Data Vital Signs (Past 12 Hours) Vital Signs Temp Pulse Resp BP Pulse Ox Pulse Ox 06/26/18 05:00 77 27 H 121/73 91 06/26/18 04:01 36.9 C 86 22 135/83 95 06/26/18 03:00 75 30 H 139/90 97 06/26/18 02:01 83 34 H 125/84 96 06/26/18 01:01 84 24 147/94 H 98 06/26/18 00:00 36.9 C 81 32 H 138/94 98 95 05/12/19 23:01 84 34 H 123/97 100 06/25/18 22:01 85 36 H 151/102 H 100 06/25/18 21:01 86 26 H 152/102 H 100
[2018-06-26] MEDS: INSULIN ASPART 100 UNITS/ML 3 ML PEN SC SCH ×4 (08:29→20:29)
--- NOTE | 2018-06-26 09:06 | Psychiatric Consultation ---
Date of Consultation June 26, 2018 Impression / Recommendations Impression 53-year-old female admitted medically for alcohol intoxication with several other medical concerns being addressed at this time. Presentation is very similar to our last visit with her in March, in which she was again on a 302 warrant based on reports she verbalized a desire to drink herself to . Will request that psychiatric liaison make contact with the petitioner to gather additional information. With current amount of knowledge, there does not seem to be sufficient criteria to suggest an involuntary psychiatric admission. Education provided regarding effect of alcohol on mood and anxiety disorders, strongly encouraging patient to consider sobriety. Pt is in the precontemplation stage with regard to the transtheoretical model of change, and is refusing recommendation for inpatient D&A rehabilitation. Pt is willing for referral for outpatient medication management and therapy. Referrals were made to [facility] when we were last involved in the patient's case, but patient did not attend appointments. Will request that our psychiatric liaison present options to patient and assist with the referral process, as patient desires medications to help with non-specific anxiety. Reviewed initial treatment suggestion of sobriety from alcohol and other substances. Alprazolam and lorazepam have been successful for reducing anxiety, but should be avoided in this patient given her alcohol abuse and long history of substance abuse. She reports a non-specific "allergy" to buspirone. She received diphenhydramine for anxiety during this hospitalization, which she states caused itching; therefore, would not suspect response to hydroxyzine to be much different. Will refer for outpatient medication management with primary recommendation still being inpatient D&A rehabilitation. Pt adamantly denies SI during this provider's interview, as well as interview with psychiatric liaison previously. She denies a history of suicide attempts and states that she has not struggled with those thoughts previously. Would suggest keeping 302 warrant active until time of medical clearance/discharge, in case new information should be gathered to suggest a change in recommendations. Pt is certainly at increased risk of harm to self when compared to the general public due to her chronic alcohol abuse history. Alcohol abuse, chronic pain, and no standing psychiatric providers increase risk; while risk is reduced by love for her children and grandchildren, positive relationship with boyfriend, future oriented in conversation, and denial of previous suicide attempts or significant psychiatric history. Will attempt to further reduce risk by assisting with referrals for outpatient providers. Risk factors are highly specific to alcohol use and are more likely to be mitigated in D&A treatment as opposed to inpatient psychiatric admission. Differential Diagnoses: alcohol abuse disorder, substance induced mood disorder, major depressive disorder, generalized anxiety disorder, or other etiology. Dr. Anna Jarquin was directly involved in review and discussion of the patient's case and participated in medical decision making regarding treatment recommendations. Risk Factors Assessment Do You Have Access To A Gun?: No CPT Code Initial Consultation: 60089 Psych History Identifying Data 53-year-old female admitted medically on 06/22/18 s/p fall in bathroom. Presented with 302 warrant due to reported statements of plan to commit suicide by drinking. BAL on admission was 211.4mg/dL. Information is gathered from hospital documentation, 302 petitioning statement and the patient herself. Information is considered to be reliable. Chief Complaint "I was drinking and I had a bad fall." History of Present Illness Siena Showers is a 53-year-old female admitted medically on 06/22/18 on a 302 warrant in conjunction with an episodes of alcohol intoxication. Pt initially presented with confusion and disorientation. Police presented to patient's home and found that patient had fallen prior to their arrival as well, no specifics provided. Pt is known to our service from previous psychiatric consultations related to her alcohol abuse. Pt is seen today on our service to assess SI, here on 302 warrant with petitioning statement completed by son. Last consultation on our service (04/09/18) was for similar presenting concerns, patient was on an active 302 warrant at that time as well. Records from that consultation were reviewed prior to meeting with the patient. At time of my assessment, patient is lying in bed and appears to be in no acute distress. Patient is agreeable to participate in evaluation, and asks this provider "why do I have the sitters?" Referring to 1-1 staff. Patient does admit that she had been drinking prior to her current admission, and suffered a fall in the bathroom which she states is "my worst fear." We discussed patient's recent mood, which she states is"in pain. That is what I am feeling, that is what leads to me drinking." Patient states that her pain is predominantly in her hip, back, chest, and wrists; and has been worsening over the past 3 years. Patient states this has affected her ability to enjoy her interactions with her grandchildren, as she is limited physically. Despite these limitations, the patient states "I am not suicidal, I do not want to kill myself." Patient's explanation of the reports is, "I said that if I did not stop drinking I would end up drinking myself to ." Patient denies active suicidality and states she does not wish to end her life. She reports love for her grandchildren, and general desire to continue living as protective factors. Patient reports increased alcohol use since February 2018. Prior to that time patient describes her use as "social", which she states was characterized by weekend drinking to the point of being buzzed. For the past 4-5 months the patient has been consuming roughly 1/5 of vodka every 2 days, and admits to need for an eye cooper helper in the morning to prevent physical symptoms upon awakening. Patient has been admitted for medical treatment multiple times as a result of her alcohol use, but denies any previous admissions for inpatient drug or alcohol rehabilitation. Patient refuses this recommendation at this time stating, "my grandchildren will not remember me if I go to rehab." Patient is not receptive to the fact that her current behavior has been problematic, and is only willing to consider outpatient treatment options at this time. Patient verbalized vague willingness to attend AA meetings, and is willing for referrals for outpatient drug and alcohol treatment as able. Patient does report many barriers to this process, as she states transportation is a concernwhich is why she was unable to follow-up with previous referrals made to [facility], despite the office being in her town of residence. Patient does report "anxiety" and is interested in medications to assist with this. Reviewed recommendations with patient that she maintain sobriety, as abstaining from alcohol will likely contribute to significant improvements in her mood and anxiety. Symptoms of anxiety are somewhat nonspecific, and she reports improvement with behavioral means such as deep breathing or reaching out to her boyfriend for support. Pt denies SI, HI, SIB, A/V hallucinations, paranoia, chris/hypomania, other symptoms more suggestive of a bipolar presentation, OCD, PTSD, eating disorder, and other specific psychiatric symptoms. Past Psychiatric History Previous Psych History: Well-known to our service from previous psychiatric consultations in the context of hospitalizations for alcohol use disorder. 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 Patient does not currently have any outpatient psychiatric providers, the multiple referrals have been made within the context of her consultations. Patient denies any previous inpatient psychiatric admissions, however records suggest that she was hospitalized at [facility] in 2003 due to substance abuse, with discharge to inpatient D&A in [place]. Pt denied to this provider any previous inpatient drug and alcohol rehabilitation programs at the time of our encounter. Do You Have Access To A Gun?: No History of Previous Suicide Attempt: No (Denies) Past Medication Trials: Per patient report: - Xanax - helpful for anxiety - Ativan - helpful for anxiety - BuSpar - "allergic", unknown response - Benadryl - "itching" Per previous records: - Cymbalta - Remeron - Effexor XR - Ambien Allergies Allergy/AdvReac Type Severity Reaction Status Date / Time clarithromycin Allergy Intermediate HIVES Verified 08/03/17 04:46 aspirin Allergy Mild Verified 08/03/17 04:46 tramadol Allergy Mild Verified 08/03/17 04:46 oxaprozin Allergy Unknown Verified 08/03/17 04:46 Home Medications Home Medications Medication Instructions Recorded Confirmed Type Unobtainable 06/22/18 06/22/18 History Family History Denies Substance Abuse History Long history of alcohol abuse. Patient reports "social drinking, only on weekends" prior to February 2018, unable to quantify usual vodka intake. Since February, patient reports increase in alcohol usenow consuming 1/5 of vodka every 2 days. Patient admits to the need for an eye cooper helper upon awakening in the morning"not much, just enough to get going." Patient has a recorded history of drug abuse, denying ongoing substance abuse at this time. On admission, her toxicology screen was negative for all substances except alcohol. Personal History Living Arrangements: Apartment (retirement, reported caregivers to house daily) Living Arrangements Comments: Lives in [place] Employment Status: Unemployed Beliefs That Will Affect Care: None History of Legal Problems: Denies Patient History Medical History History of hysterectomy Lumbago (Chronic) Multiple sclerosis (Chronic) Alcohol abuse Factitious disorder Opiate addiction Presence of intrathecal pump containing morphine 0.189mg/day and fentanyl 2.52mcg/day miminimal rate Sedative abuse Surgical History History of Jeffy-en-Y gastric bypass History of cholecystectomy History of open reduction and internal fixation (ORIF) procedure Family History Other Aneurysm Cancer Stroke Social History Preferred Language: Danish Communication Ability: Impaired Beliefs That Will Affect Care: None Current Living Situation: Alone Other Information That Helps Us Care for You: No Feels Safe at Home: Yes Safety Concerns: Feels Safe At This Time Smoking Status: Never smoker Hx Alcohol Use: Yes Alcohol type: beer, wine and hard liquor Hx Substance Use: No Physical Exam Psychiatric: Orientation: alert, oriented x 3 and cooperative (Superficially) Apperance: appropriately dressed (In hospital gown) and + disheveled (Long salas hair, pulled back in a messy ponytail) Eye Contact: + fair eye contact Motor Behavior: no abnormal motor movements (Observed while laying) Speech: normal rate/rhythm/volume of speech (Mildly irritable tone, soft volume) Affect: + blunted affect; no depressed affect and no anxious affect Mood: + anxious mood "In pain" and "anxiety quite a bit Thought Process: goal directed thought process and clear/coherent thought process Thought Content: reality based without delusions Suicidal Thoughts: denies suicidal thoughts, denies suicidal plan and denies suicidal intent Homicidal Thoughts: denies homicidal thoughts Hallucinations: no auditory hallucinations and no visual hallucinations Cognition: recent memory grossly intact, remote memory grossly intact, attention grossly intact and language grossly intact Estimated Intelligence: consistent with education level Insight: + limited insight (With regard to her alcohol abuse) Judgement: + fair judgement Vital Signs (Past 24 Hours): Last Vital Signs Temp 36.9 C 06/26/18 04:01 Pulse 77 06/26/18 05:00 Resp 27 H 06/26/18 05:00 BP 121/73 06/26/18 05:00 Pulse Ox 91 06/26/18 05:00 Review of Systems Constitutional: reports generalized pain Cardiovascular: reports occasional chest pain Respiratory: denied Gastrointestinal: denied Neurological: denied Musculoskeletal: reports pain of hip, back, chest, and wrist worsening for the past 3 years Psychiatric: denies symptoms other than stated above Total of at least 10 systems reviewed, pertinent positives as above and in HPI. Results & Data Medications Administered Lipase/Protease/Amylase (Pancreaze (Lipase 10,500u)) 1 cap PO TIDM MICHELLE Stop: 07/25/18 11:59 Last Admin: 06/25/18 16:53 Dose: 1 cap Documented by: [id number] Admin: 06/25/18 11:03 Dose: 1 cap Documented by: [id number] Dextrose (Dextrose 50%) 25 - 50 ml IV UD PRN; Protocol PRN Reason: Hypoglycemia Protocol Stop: 07/23/18 02:29 Last Admin: 06/23/18 16:50 Dose: 25 ml Documented by: [id number] Admin: 06/23/18 14:55 Dose: 25 ml Documented by: [id number] Diphenhydramine HCl (Benadryl Capsule) 25 mg PO Q8H PRN PRN Reason: Itching Stop: 07/25/18 13:08 Last Admin: 06/25/18 13:17 Dose: 25 mg Documented by: [id number] Potassium Phosphate 40 mmol/ (Sodium Chloride) 1,013.3333 mls @ 100 mls/hr IV ONE ONE Stop: 06/26/18 15:07 Last Admin: 06/26/18 05:21 Dose: 100 mls/hr Documented by: [id number] Insulin Aspart (Novolog Flexpen) 0 units SC ACHS [facility] Stop: 07/24/18 16:29 Last Admin: 06/25/18 21:33 Dose: Not Given Documented by: [id number] Cosigned by: [id number] Admin: 06/25/18 16:53 Dose: Not Given Documented by: [id number] Cosigned by: [id number] Admin: 06/25/18 12:21 Dose: Not Given Documented by: [id number] Cosigned by: [id number] Admin: 06/25/18 08:41 Dose: 3 units Documented by: [id number] Cosigned by: [id number] Admin: 06/24/18 21:06 Dose: Not Given Documented by: [id number] Cosigned by: [id number] Admin: 06/24/18 17:25 Dose: Not Given Documented by: [id number] Cosigned by: [id number] Magnesium Oxide (Mag-Ox) 800 mg PO HS MICHELLE Stop: 07/24/18 20:59 Last Admin: 06/25/18 21:28 Dose: 800 mg Documented by: [id number] Admin: 06/24/18 21:08 Dose: 800 mg Documented by: [id number] Ondansetron HCl (Zofran) 4 mg IV Q6 MICHELLE Stop: 07/23/18 02:14 Last Admin: 06/26/18 05:21 Dose: 4 mg Documented by: [id number] Admin: 06/25/18 23:52 Dose: 4 mg Documented by: [id number] Admin: 06/25/18 16:53 Dose: Not Given Documented by: [id number] Admin: 06/25/18 11:03 Dose: 4 mg Documented by: [id number] Admin: 06/25/18 05:05 Dose: 4 mg Documented by: [id number] Admin: 06/24/18 23:45 Dose: 4 mg Documented by: [id number] Admin: 06/24/18 17:58 Dose: 4 mg Documented by: [id number] Admin: 06/24/18 11:52 Dose: 4 mg Documented by: [id number] Admin: 06/24/18 05:32 Dose: 4 mg Documented by: [id number] Admin: 06/23/18 23:22 Dose: 4 mg Documented by: [id number] Admin: 06/23/18 18:08 Dose: 4 mg Documented by: [id number] Admin: 06/23/18 12:46 Dose: 4 mg Documented by: [id number] Admin: 06/23/18 05:31 Dose: 4 mg Documented by: [id number] Admin: 06/23/18 02:27 Dose: 4 mg Documented by: [id number] Pantoprazole Sodium (Protonix) 40 mg PO BID MICHELLE Stop: 07/25/18 09:29 Last Admin: 06/25/18 21:28 Dose: 40 mg Documented by: [id number] Admin: 06/25/18 09:44 Dose: 40 mg Documented by: [id number]
[2018-06-26] MEDS: THIAMINE HCL 100 MG TAB PO SCH (09:08)
[2018-06-26] MEDS: PANCREAZE (LIPASE 10,500U) CAP PO SCH ×3 (09:08→17:39)
[2018-06-26] MEDS: PANTOprazole 40 MG TAB PO SCH ×2 (09:08→20:55)
[2018-06-26 10:40] LABS: Eosinophils # (auto) 0.11 K/uL (0-0.5); Eosinophils % (auto) 4.5 %; Hemoglobin 9.6 g/dL (12.0-16.0); Lymphocytes # (auto) 0.62 K/uL (1.2-3.4); Lymphocytes % (auto) 25.3 %; Mean Corpuscular Volume 84.7 fL (80-100); Monocytes # (auto) 0.29 K/uL (0.11-0.59); Monocytes % (auto) 11.8 %; Neutrophils # (auto) 1.43 K/uL (1.4-6.5); Neutrophils % (auto) 58.4 %; Platelet Count 19 K/uL (130-400); Platelet Estimate SIGNIFIC DECREASED (Normal); RDW Coefficient of Variation 17.4 % (11.5-14.5); RDW Standard Deviation 53.9 fL (36.4-46.3); Red Blood Count 3.54 M/uL (4.2-5.4); White Blood Count 2.45 K/uL (4.8-10.8)
--- NOTE | 2018-06-26 12:47 | Critical Care Progress Note ---
Date of Service June 26, 2018 Assessment & Plan (1) Alcohol overdose: Impression: 1. Excessive alcohol abuse. Resulted in metabolic acidosis and altered mental status and a fall. 2. Chronic hypokalemia, could be related to GI source such as post gastric bypass surgery versus renal source. 3. Malnutrition. 4. Profound hypokalemia, chronic. 5. Alcoholic hepatitis. Plan: 1. Continue with thiamine. 2. Aggressive replacement of potassium. 3. Check urine potassium. 4. Replacement of magnesium as well. 5. Oral replacement might not be successful given her gastric bypass. 6. Disposition plan to regular floor. 7. No heparin subcu. 8. Continue to follow platelet count. Discussed with the staff on rounds in details, critical care time spent with the patient was 35 minutes. Subjective The patient is known to the hospital, was admitted to the hospital with recent fall, with altered mental status, she did have previous falls as well resulted in injury to her back in her left lower extremity. The patient admitted to the ICU due to electrolyte imbalance. She does have history of gastric bypass as well. The patient is known to be active drinker and she has been drinking to control her pain according to her. She does have a implanted morphine pump but due to financial reason, she was unable to afford the medication. When I interviewed the patient, she was following commands, appeared to be calm, she does not have any tremor, no hallucinations, no change in mental status, she is able to tolerate oral intake, she denies any melena, no nausea or vomiting no abdominal pain, her main pain is a chronic pain from the back to the left lower extremity. She denies any headache, visual disturbances, no heartburn, no change in urine habits, no increased swelling in her lower extremities. Neurologically, she has no focal symptoms. Review of Systems Review of Systems: Review of system was unremarkable including 10 systems except for above in the first section. Physical Exam Physical Exam: Vital signs are stable, S1-S2 regular rate and rhythm, lungs are clear, abdomen is benign, palpable foreign body in the right upper quadrant representing the morphine pump, no edema, skin changes with the scar in left lower extremity from previous surgical intervention, no tremor and no neurologic deficit. Results & Data Vital Signs (Past 12 Hours) Vital Signs Temp Pulse Resp BP Pulse Ox Pulse Ox 06/26/18 11:14 36.6 C 78 25 H 125/83 98 06/26/18 10:01 82 28 H 128/96 98 06/26/18 09:01 89 26 H 129/89 96 06/26/18 09:00 37.0 C 06/26/18 08:01 78 30 H 96/80 L 93 06/26/18 08:00 95 06/26/18 07:00 80 18 132/91 98 06/26/18 05:00 77 27 H 121/73 91 06/26/18 04:01 36.9 C 86 22 135/83 95 06/26/18 03:00 75 30 H 139/90 97 06/26/18 02:01 83 34 H 125/84 96 06/26/18 01:01 84 24 147/94 H 98 Laboratory Results Labs are consistent with pancytopenia, thrombocytopenia is profound and likely related to alcohol use. Chronic hypokalemia and hypomagnesemia. Poor nutrition noted by the drop in her BUN and creatinine. Transaminitis also was noted. Diagnostic Findings Head CT without intracranial abnormality, chest x-ray is hyperinflated without any abnormality either. (1) Alcohol overdose Encounter type: initial encounter Injury intent: intentional self-harm Qualified Code(s): T51.92XA - Toxic effect of unspecified alcohol, intentional self-harm, initial encounter
[2018-06-26] MEDS: LOPERAMIDE HCL 2 MG CAP PO PRN ×2 (14:30→20:55)
[2018-06-26] MEDS ORDERED: LORazepam 2 MG/4 ML VIAL IV PRN (15:57)
[2018-06-26 20:17] LABS: BUN Creatinine Ratio 9.8 (10-20); Calcium 7.5 mg/dl (8.5-10.1); Creatinine Clr Calc Pharmacy 85.1 ml/min; Est GFR (African American) 114.9; Est GFR (Non-African American) 99.2; Magnesium 1.9 mg/dl (1.8-2.4); Phosphorus 2.1 mg/dl (2.5-4.9); Potassium 3.1 mmol/L (3.5-5.1)
[2018-06-26] MEDS: MAGNESIUM OXIDE 400 MG TAB PO SCH (20:29)
[2018-06-26] MEDS: chlordiazePOXIDE HCl 25 MG CAP PO SCH (20:29)
[2018-06-26] MEDS: POTASSIUM CHLORIDE / WTR 10 MEQ/100 ML PLCT IV SCH ×3 (21:35→23:32)
[2018-06-27] MEDS: POTASSIUM CHLORIDE / WTR 10 MEQ/100 ML PLCT IV SCH (00:26)
[2018-06-27] MEDS: LOPERAMIDE HCL 2 MG CAP PO PRN ×4 (03:03→21:30)
[2018-06-27] MEDS: ONDANSETRON INJ 2 MG/ML 2 ML VIAL IV SCH ×3 (05:31→17:26)
[2018-06-27 07:10] LABS: Calcium 7.5 mg/dl (8.5-10.1); Creatinine Clr Calc Pharmacy 123.1 ml/min; Est GFR (African American) 129.8; Magnesium 1.9 mg/dl (1.8-2.4); Potassium 3.5 mmol/L (3.5-5.1)
[2018-06-27 07:33] LABS: Hematocrit (blood only) 28.7 % (37-47); Hemoglobin 9.2 g/dL (12.0-16.0); Mean Corpuscular Hgb Conc 32.1 g/dL (32-36); Mean Corpuscular Volume 84.7 fL (80-100); Platelet Count 15 K/uL (130-400); RDW Coefficient of Variation 17.7 % (11.5-14.5); RDW Standard Deviation 55.1 fL (36.4-46.3); Red Blood Count 3.39 M/uL (4.2-5.4); White Blood Count 1.71 K/uL (4.8-10.8)
[2018-06-27 07:34] LABS: Basophils # (auto) 0.02 K/uL (0-0.2); Basophils % (auto) 1.2 %; Eosinophils # (auto) 0.05 K/uL (0-0.5); Eosinophils % (auto) 2.9 %; Giant Platelets 1+; Immature Granulocytes # (auto) 0.03 K/uL (0.00-0.02); Immature Granulocytes % (auto) 1.8 %; Lymphocytes # (auto) 0.63 K/uL (1.2-3.4); Lymphocytes % (auto) 36.8 %; Monocytes # (auto) 0.48 K/uL (0.11-0.59); Monocytes % (auto) 28.1 %; Neutrophils % (auto) 29.2 %; Platelet Estimate SIGNIFIC DECREASED (Normal)
[2018-06-27] MEDS: chlordiazePOXIDE HCl 25 MG CAP PO SCH ×3 (07:49→21:31)
[2018-06-27] MEDS: THIAMINE HCL 100 MG TAB PO SCH (07:49)
[2018-06-27] MEDS: PANCREAZE (LIPASE 10,500U) CAP PO SCH ×3 (07:49→17:26)
[2018-06-27] MEDS: PANTOprazole 40 MG TAB PO SCH ×2 (07:49→21:30)
[2018-06-27] MEDS: INSULIN ASPART 100 UNITS/ML 3 ML PEN SC SCH ×4 (08:05→21:26)
--- NOTE | 2018-06-27 08:56 | Hospitalist Progress Note ---
Date of Service June 27, 2018 Assessment & Plan (1) Metabolic acidosis: (1) toxic encephalopathy 1. 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 Cardiovascular: Patient initially tachycardic, hypotensive, s/p 4L fluid resuscitation and Levophed initiated with improvement in BP now off Levaphed. Echo 06/2016 which showed LVH, mildly reduced EF at 45-50%, regional wma, TR, Grade I diastolic dysfunction. Troponin detectable at 0.027, EKG with ST, no acute ST changes to signify isc hemia, felt was demand ischemia 3. Pulmonary: Supplemental O2 as needed to maintain sats > 94% 4. GI: Patient with EtOH abuse, cirrhosis of the liver with Grade I esophageal varices noted on prior EGD, elevated liver enzymes, pancreatitis and GIB Elevated LFTs - most likely EtOH hepatitis vs steatosis, MDF < 32, did not initiate treatment for EtOH hepatitis. Pancreatitis - elevated lipase, fat stranding noted on CT. Keep NPO, pain and nausea control. IVF GIB - patient with bloody mucoid BM in ER. No nausea/vomiting/hematemesis GI consult Cirrhosis - cautious use of IVF, may consider Albumin. GERD - Pepcid 5. - severe metabolic acidosis, multifactorial to include TYRONE, elevated lactate, possible ingestion and EtOH intoxication with alcohol ketosis. Osmolar gap calculates to 21.6 however there is no a difference between BMP glucose and obtaining sample for osmolar gap -Patient has been empirically started on omeprazole as the methyl alcohol and ethylene glycol are reference labs -Repeat alcohol not obtained Continue omeprazole in the interim - Anion gap improving Alcoholic ketoacidosis: Improving Lactic acidosis: improving Hypokalemia continue to replete Acute Kidney Injury: Improving Heme - GIB as above, continue to monitor ID - afebrile, WBC=10.71-Empiric Vancomycin and Zosyn for now, adjust based on cultures Endocrine - elevated blood glucose, patient with no documented history of DM -Insulin infusion -improving. Psych - patient with reported plan for suicide -Suicide precautions -Psychiatry consultation when acute issues resolve (2) Pancytopenia: Pt has developed panctopenia, no anaplasmosis inclusions are seen and peripheral smear review may be consistent with cirrhosis and sequestration Subjective Patient is much more awake and alert today. Her anxiety has been improved with scheduled Librium dosing which were using for alcohol withdrawal. She however has pancytopenia on peripheral labs. Anaplasmosis has been ruled out by peripheral smear for the most part. This may be related to her chronic alcohol use and also a splenic sequestration. She is on neutropenic precautions we stopped and anticoagulants given her thrombus cytopenia and will follow her blood counts. She currently has no active signs of infection or bleeding Review of Systems Review of Systems: ROS: She is not lethargic she is in mild distress with chronic pain from her left- sided injuries No double vision blurry vision No problems with speech or swallowing No palpitations, chest pain or pressure No Wheezing or breathing issues No abdominal pain nausea vomiting diarrhea distention No burning urine urine frequency or changes in color Persistent left-sided hip / leg pain No skin rashes or oral lesions No unusual bruising or bleeding no epistaxis no gum bleeding no blood per rectum No focused back pain or numbness or loss of strength No changes in memory or confusion Physical Exam Physical Exam: The patient appeared well nourished and normally developed. She is in mild distress Vital signs as documented. Head exam is unremarkable. normocephalic, atraumatic Neck is without jugular venous distension, thyromegaly, or lymphademopathy Lungs are clear to auscultation and percussion. Cardiac exam reveals Rhythm is regular. Abdominal exam reveals normal bowel sounds, no masses, no organomegaly no distention no dullness Extremities are nonedematous and both pedal pulses are present Neurologic exam is A&Ox3, no focal deficits, strength is equal bilateral Psychologically seems anxious and perhaps depressed Skin is warm Dry Results & Data Vital Signs (Past 12 Hours) Vital Signs Temp Pulse Pulse Resp BP Pulse Ox 06/27/18 07:17 36.7 C 85 20 123/81 96 06/26/18 23:55 87
--- NOTE | 2018-06-27 09:40 | XRay Report ---
XR chest 2V routine CLINICAL HISTORY: Pneumonia COMPARISON STUDY: 06/23/2018 FINDINGS: The cardiac and mediastinal contours remain stable. There is a right internal jugular centr al venous catheter unchanged in position. There are linear by basilar opacities, likely atelectatic. A subdiaphragmatic right upper quadrant air collection likely represents colon.[ There is no evidence for failure. IMPRESSION: Linear basilar subsegmental atelectatic changes. Electronically signed by: Yahir Valencia M.D. 06/27/2018 9:39 AM
[2018-06-27] MEDS: MAGNESIUM OXIDE 400 MG TAB PO SCH (21:31)
[2018-06-28] MEDS: ONDANSETRON INJ 2 MG/ML 2 ML VIAL IV SCH ×5 (00:05→23:40)
[2018-06-28] MEDS: LOPERAMIDE HCL 2 MG CAP PO PRN ×4 (03:10→21:54)
[2018-06-28] MEDS: THIAMINE HCL 100 MG TAB PO SCH (08:56)
[2018-06-28] MEDS: chlordiazePOXIDE HCl 25 MG CAP PO SCH ×2 (08:56→14:00)
[2018-06-28] MEDS: PANCREAZE (LIPASE 10,500U) CAP PO SCH ×3 (08:56→18:40)
[2018-06-28] MEDS: PANTOprazole 40 MG TAB PO SCH ×2 (08:56→20:34)
[2018-06-28] MEDS: INSULIN ASPART 100 UNITS/ML 3 ML PEN SC SCH ×4 (08:58→22:13)
[2018-06-28 09:43] LABS: Mean Corpuscular Hgb Conc 32.6 g/dL (32-36)
[2018-06-28 10:10] LABS: Albumin Level 2.5 gm/dl (3.4-5.0); BUN Creatinine Ratio 17.5 (10-20); Calcium 7.6 mg/dl (8.5-10.1); Creatinine Clr Calc Pharmacy 107.2 ml/min; Potassium 3.3 mmol/L (3.5-5.1)
[2018-06-28 10:22] LABS: Globulin 2.6 gm/dl (2.5-4.0); Total Protein 5.1 gm/dl (6.4-8.2)
[2018-06-28 10:44] LABS: Hematocrit (blood only) 27.3 % (37-47); Hemoglobin 8.9 g/dL (12.0-16.0); Mean Corpuscular Volume 84.5 fL (80-100); Platelet Count 42 K/uL (130-400); RDW Coefficient of Variation 18.1 % (11.5-14.5); Red Blood Count 3.23 M/uL (4.2-5.4); White Blood Count 2.32 K/uL (4.8-10.8)
[2018-06-28 10:45] LABS: Basophils # (auto) 0.02 K/uL (0-0.2); Basophils % (auto) 0.9 %; Eosinophils # (auto) 0.08 K/uL (0-0.5); Eosinophils % (auto) 3.6 %; Immature Granulocytes % (auto) 4.5 %; Lymphocytes # (auto) 0.72 K/uL (1.2-3.4); Lymphocytes % (auto) 32.1 %; Monocytes # (auto) 0.82 K/uL (0.11-0.59); Monocytes % (auto) 36.6 %; Neutrophils % (auto) 22.3 %
[2018-06-28 10:48] LABS: Anisocytosis Present; Giant Platelets 1+; Platelet Estimate Decreased (Normal); Toxic Granulation 1+
[2018-06-28 11:28] LABS: Bilirubin,Total 0.7 mg/dl (0.2-1)
--- NOTE | 2018-06-28 16:56 | Hospitalist Progress Note ---
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 Echo 06/2016 which showed LVH, mildly reduced EF at 45-50%, regional wma, TR, Grade I diastolic dysfunction. Troponin detectable at 0.027, EKG with ST, no acute ST changes to signify ischemia, felt was demand ischemia Pulmonary: Supplemental O2 as needed to maintain sats > 94% GI: Patient with EtOH abuse, cirrhosis of the liver with Grade I esophageal varices noted on prior EGD, elevated liver enzymes, pancreatitis and GIB Elevated LFTs - most likely EtOH hepatitis vs steatosis, MDF < 32, did not initiate treatment for EtOH hepatitis. Pancreatitis - elevated lipase, fat stranding noted on CT. Keep NPO, pain and nausea control. IVF GIB - patient with bloody mucoid BM in ER. No nausea/vomiting/hematemesis GI consult Cirrhosis - cautious use of IVF, may consider Albumin. GERD - Pepcid metabolic acidosis, multifactorial to include TYRONE, elevated lactate, possible ingestion and EtOH intoxication with alcohol ketosis. Alcoholic ketoacidosis: Improving Lactic acidosis: improving Hypokalemia continue to replete Acute Kidney Injury: Improving Heme - GIB as above, continue to monitor ID - afebrile, antibiotics are stopped Endocrine - elevated blood glucose, patient with no documented history of DM -Insulin management by pharmacy Psych - patient with reported plan for suicide -Suicide precautions, will be lifted pt no longer voices desire for self harm (2) Pancytopenia: improing panctopenia, no anaplasmosis inclusions are seen and peripheral smear review may be consistent with cirrhosis and sequestration Subjective Patient is feeling somewhat sleepy today may be from her Librium will begin tapering the dose. Her pancytopenia has slightly improved platelets are up to 42,000 Review of Systems Review of Systems: ROS: Is chronically ill No double vision blurry vision No problems with speech or swallowing No palpitations, chest pain or pressure No Wheezing or breathing issues No abdominal pain, mild distention, nausea vomiting diarrhea No burning urine urine frequency or changes in color No focal joint pain or muscle pain No skin rashes or oral lesions No unusual bruising or bleeding No focused back pain or numbness or loss of strength No changes in memory or confusion Physical Exam Physical Exam: The patient appeared chronically ill Vital signs as documented. Head exam is unremarkable. normocephalic, atraumatic Neck is without jugular venous distension, thyromegaly, or lymphademopathy Lungs are clear to auscultation and percussion. Cardiac exam reveals Rhythm is regular. Systolic ejection murmur Abdominal exam reveals normal bowel sounds, mild distention and dullness no masses, no organomegaly Extremities are mildly edematous and both pedal pulses are present Neurologic exam is A&Ox3, no focal deficits, strength is equal bilateral Psychologically seems neither anxious or depressed Skin is warm Dry without bruises or lesions Results & Data Vital Signs (Past 12 Hours) Vital Signs Temp Pulse Pulse Resp BP Pulse Ox 06/28/18 15:53 82 06/28/18 15:47 36.5 C 88 20 105/71 98 06/28/18 11:22 36.8 C 69 20 97/65 L 94 06/28/18 11:13 84
[2018-06-28] MEDS: MAGNESIUM OXIDE 400 MG TAB PO SCH (20:34)
[2018-06-29] MEDS: LOPERAMIDE HCL 2 MG CAP PO PRN ×2 (04:10→16:28)
[2018-06-29] MEDS: ONDANSETRON INJ 2 MG/ML 2 ML VIAL IV SCH ×3 (05:55→17:58)
[2018-06-29 08:34] LABS: Hematocrit (blood only) 27.8 % (37-47); Hemoglobin 8.8 g/dL (12.0-16.0); Mean Corpuscular Hgb Conc 31.7 g/dL (32-36); Mean Corpuscular Volume 86.1 fL (80-100); Mean Platelet Volume 11.6 fL (7.4-10.4); Platelet Count 70 K/uL (130-400); RDW Coefficient of Variation 18.9 % (11.5-14.5); RDW Standard Deviation 57.3 fL (36.4-46.3); Red Blood Count 3.23 M/uL (4.2-5.4); White Blood Count 2.24 K/uL (4.8-10.8)
[2018-06-29] MEDS: THIAMINE HCL 100 MG TAB PO SCH (08:44)
[2018-06-29] MEDS: PANTOprazole 40 MG TAB PO SCH ×2 (08:45→20:39)
[2018-06-29] MEDS: PANCREAZE (LIPASE 10,500U) CAP PO SCH ×3 (08:45→18:01)
[2018-06-29 08:52] LABS: Albumin Level 2.6 gm/dl (3.4-5.0); BUN Creatinine Ratio 25.5 (10-20); Creatinine Clr Calc Pharmacy 111.3 ml/min; Est GFR (African American) 125.5; Est GFR (Non-African American) 108.3; Magnesium 1.8 mg/dl (1.8-2.4); Potassium 3.4 mmol/L (3.5-5.1)
[2018-06-29 08:53] LABS: Anisocytosis Present; Basophils # (auto) 0.01 K/uL (0-0.2); Basophils % (auto) 0.4 %; Eosinophils # (auto) 0.05 K/uL (0-0.5); Eosinophils % (auto) 2.2 %; Giant Platelets 1+; Immature Granulocytes # (auto) 0.11 K/uL (0.00-0.02); Immature Granulocytes % (auto) 4.9 %; Lymphocytes # (auto) 0.63 K/uL (1.2-3.4); Lymphocytes % (auto) 28.1 %; Monocytes # (auto) 0.67 K/uL (0.11-0.59); Monocytes % (auto) 29.9 %; Neutrophils # (auto) 0.77 K/uL (1.4-6.5); Neutrophils % (auto) 34.5 %; Ovalocytes 1+; Polychromasia 1+; Toxic Granulation 1+
[2018-06-29 08:55] LABS: Bilirubin,Total 0.7 mg/dl (0.2-1); Globulin 2.7 gm/dl (2.5-4.0); Total Protein 5.3 gm/dl (6.4-8.2)
[2018-06-29] MEDS: INSULIN ASPART 100 UNITS/ML 3 ML PEN SC SCH ×4 (08:55→20:24)
[2018-06-29] MEDS ORDERED: POTASSIUM CHLORIDE 20 MEQ TABCR PO ONE (12:00)
[2018-06-29 13:33] LABS: Ethylene Glycol <10.0 mcg/mL (<10.0); Methyl Alcohol Level NEGATIVE <5 MG/DL (NONE DETECTED)
--- NOTE | 2018-06-29 16:28 | Hospitalist Progress Note ---
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 Echo 06/2016 which showed LVH, mildly reduced EF at 45-50%, regional wma, TR, Grade I diastolic dysfunction. Troponin detectable at 0.027, EKG with ST, no acute ST changes to signify ischemia, felt was demand ischemia Pulmonary: Patient's without need of oxygen at this time GI: Patient with EtOH abuse, cirrhosis of the liver with Grade I esophageal varices noted on prior EGD, elevated liver enzymes, pancreatitis and GIB her hemoglobin is now been stable Elevated LFTs - most likely EtOH hepatitis vs steatosis, MDF < 32, did not initiate treatment for EtOH hepatitis. Pancreatitis - elevated lipase, fat stranding noted on CT. Keep NPO, pain and nausea control. IVF GIB - patient with bloody mucoid BM in ER. No nausea/vomiting/hematemesis plans of intervention at this time Cirrhosis -noted GERD - Pepcid metabolic acidosis, multifactorial to include TYRONE, elevated lactate, possible ingestion and EtOH intoxication with alcohol ketosis. Alcoholic ketoacidosis: Improving Lactic acidosis: improving Hypokalemia continue to replete Acute Kidney Injury: Improving Heme - GIB as above, continue to monitor ID - afebrile, antibiotics are stopped Endocrine - elevated blood glucose, patient with no documented history of DM -Insulin management by pharmacy Psych - patient with reported plan for suicide -Suicide precautions, will be lifted pt no longer voices desire for self harm (2) Pancytopenia: improving panctopenia, no anaplasmosis inclusions are seen and peripheral smear review Likely consistent with cirrhosis and sequestration Subjective Patient states she does not feel as well as she did yesterday but her sleepiness has improved with reduction of her Librium. She still having some mild nausea which may be attributed to her previous gastric bypass and her eating larger amounts of food. She is agreeable to having her food downgraded to a more softer type of diet. She is having no melena. Her blood counts all improved somewhat. Review of Systems Review of Systems: ROS: She is fatigued and tired is been resistant to getting out of bed for physical therapy No double vision blurry vision No problems with speech or swallowing No palpitations, chest pain or pressure No Wheezing or breathing issues Mild abdominal pain nausea and vomiting with no diarrhea No burning urine urine frequency or changes in color No focal joint pain or muscle pain No skin rashes or oral lesions No unusual bruising or bleeding No focused back pain or numbness or loss of strength overall decreased strength and complaints of weakness No changes in memory or confusion Physical Exam Physical Exam: The patient appeared well nourished and normally developed. Vital signs as documented. Head exam is unremarkable. normocephalic, atraumatic Neck is with jugular venous distension, thyromegaly, or lymphademopathy Lungs are clear to auscultation and percussion. Cardiac exam reveals Rhythm is regular. First and second heart sounds normal. Abdominal exam reveals normal bowel sounds, no masses, no organomegaly, mildly tender in the epigastrium Extremities are mildly edematous and both pedal pulses are present Neurologic exam is A&Ox3, no focal deficits, strength is equal bilateral Psychologically seems depressed Skin is warm / Dry Results & Data Vital Signs (Past 12 Hours) Vital Signs Temp Pulse Pulse Resp BP Pulse Ox 06/29/18 15:12 37.4 C 86 15 95/67 L 94 06/29/18 09:58 80 06/29/18 07:30 36.6 C 76 18 98/64 L 94
[2018-06-29] MEDS: TAPENTADOL HCL 50 MG TAB PO PRN (18:30)
[2018-06-29] MEDS: MAGNESIUM OXIDE 400 MG TAB PO SCH (20:39)
[2018-06-30] MEDS: ONDANSETRON INJ 2 MG/ML 2 ML VIAL IV SCH ×4 (00:07→18:15)
[2018-06-30] MEDS: LOPERAMIDE HCL 2 MG CAP PO PRN ×4 (00:07→19:55)
[2018-06-30] MEDS: TAPENTADOL HCL 50 MG TAB PO PRN ×4 (00:36→20:38)
[2018-06-30] MEDS: INSULIN ASPART 100 UNITS/ML 3 ML PEN SC SCH ×4 (09:05→20:40)
[2018-06-30] MEDS: PANTOprazole 40 MG TAB PO SCH ×2 (09:06→20:39)
[2018-06-30] MEDS: THIAMINE HCL 100 MG TAB PO SCH (09:06)
[2018-06-30 09:42] LABS: Hematocrit (blood only) 27.2 % (37-47); Hemoglobin 8.4 g/dL (12.0-16.0); Mean Corpuscular Hgb Conc 30.9 g/dL (32-36); Mean Corpuscular Volume 88.3 fL (80-100); Platelet Count 111 K/uL (130-400); RDW Coefficient of Variation 19.8 % (11.5-14.5); RDW Standard Deviation 61.5 fL (36.4-46.3); Red Blood Count 3.08 M/uL (4.2-5.4); White Blood Count 2.64 K/uL (4.8-10.8)
[2018-06-30 09:58] LABS: Albumin Level 2.7 gm/dl (3.4-5.0); BUN Creatinine Ratio 23.2 (10-20); Creatinine Clr Calc Pharmacy 98.1 ml/min; Est GFR (African American) 120.4; Est GFR (Non-African American) 103.9; Potassium 4.2 mmol/L (3.5-5.1)
[2018-06-30 09:59] LABS: Anisocytosis Present; Basophils # (auto) 0.01 K/uL (0-0.2); Basophils % (auto) 0.4 %; Eosinophils # (auto) 0.03 K/uL (0-0.5); Eosinophils % (auto) 1.1 %; Immature Granulocytes # (auto) 0.07 K/uL (0.00-0.02); Immature Granulocytes % (auto) 2.7 %; Lymphocytes % (auto) 26.5 %; Monocytes % (auto) 22.7 %; Neutrophils # (auto) 1.23 K/uL (1.4-6.5); Neutrophils % (auto) 46.6 %; Ovalocytes 1+; Toxic Granulation 1+
[2018-06-30] MEDS: PANCREAZE (LIPASE 10,500U) CAP PO SCH ×3 (10:03→18:16)
[2018-06-30 10:07] LABS: Albumin Globulin Ratio 0.9 (0.9-2); Bilirubin,Total 0.7 mg/dl (0.2-1); Total Protein 5.7 gm/dl (6.4-8.2)
[2018-06-30] MEDS: CARBOHYDRATES FOR HYPOGLYCEMIA PO PRN (11:39)
--- NOTE | 2018-06-30 17:33 | Hospitalist Progress Note ---
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 Echo 06/2016 which showed LVH, mildly reduced EF at 45-50%, regional wma, TR, Grade I diastolic dysfunction. Troponin detectable at 0.027, EKG with ST, no acute ST changes to signify ischemia, felt was demand ischemia Pulmonary: Patient's continues without need of oxygen at this time GI: Patient with EtOH abuse, cirrhosis of the liver with Grade I esophageal varices noted on prior EGD, elevated liver enzymes, pancreatitis and GIB her hemoglobin is now been stable Elevated LFTs - most likely EtOH hepatitis vs steatosis, MDF < 32, did not initiate treatment for EtOH hepatitis. Pancreatitis - elevated lipase, fat stranding noted on CT. pt is tolerant of advancing diet GIB - patient with bloody mucoid BM in ER. none additional Cirrhosis -noted GERD - Pepcid metabolic acidosis, multifactorial to include TYRONE, elevated lactate, possible ingestion and EtOH intoxication with alcohol ketosis. Alcoholic ketoacidosis: Improving Lactic acidosis: improving Hypokalemia replete Acute Kidney Injury: Improving Heme - GIB as above, continue to monitor ID - afebrile, antibiotics are stopped Endocrine - elevated blood glucose, patient with no documented history of DM -Insulin management by pharmacy Psych -eval does not feel pt is a risk to herself and have lifted -Suicide precautions, will be lifted pt no longer voices desire for self harm (2) Pancytopenia: improving panctopenia, no anaplasmosis inclusions are seen and peripheral smear review Likely consistent with cirrhosis and sequestration Subjective pt is continuing to improve, she may benefit from short term rehab, all blood work has improved and we are tapering her librium, her pain complaints are minimum Review of Systems Review of Systems: ROS: pt appears chroniclly ill No double vision blurry vision No problems with speech or swallowing No palpitations, chest pain or pressure No Wheezing or breathing issues No abdominal pain nausea vomiting diarrhea changes in appetite or weight No burning urine urine frequency or changes in color chronic left hip and leg pain No skin rashes or oral lesions No unusual bruising or bleeding No focused back pain or numbness or loss of strength No changes in memory or confusion Physical Exam Physical Exam: The patient appeared chronically ill Vital signs as documented. Head exam is unremarkable. normocephalic, atraumatic Neck is without jugular venous distension, thyromegaly, or lymphademopathy Lungs are clear to auscultation and percussion. Cardiac exam reveals Rhythm is regular. First and second heart sounds normal. Abdominal exam reveals normal bowel sounds, no masses, no organomegaly Extremities are nonedematous and both pedal pulses are present Neurologic exam is A&Ox3, no focal deficits, strength is equal bilateral Psychologically seems neither anxious or depressed Skin is warm / Dry Results & Data Vital Signs (Past 12 Hours) Vital Signs Temp Pulse Pulse Resp BP Pulse Ox 06/30/18 15:49 80 06/30/18 15:10 36.8 C 72 20 94/66 L 97 06/30/18 10:13 80 06/30/18 07:33 36.7 C 75 20 90/57 L 98
[2018-06-30] MEDS: MAGNESIUM OXIDE 400 MG TAB PO SCH (20:39)
[2018-06-30] MEDS ORDERED: MICONAZOLE NITRATE POWDER 43 GM EXT PRN (22:50)
[2018-07-01] MEDS: ONDANSETRON INJ 2 MG/ML 2 ML VIAL IV SCH ×4 (00:04→18:02)
[2018-07-01] MEDS: LOPERAMIDE HCL 2 MG CAP PO PRN ×3 (03:34→19:58)
[2018-07-01] MEDS: TAPENTADOL HCL 50 MG TAB PO PRN ×3 (04:07→19:58)
[2018-07-01 07:25] LABS: BUN Creatinine Ratio 21.1 (10-20); Calcium 7.9 mg/dl (8.5-10.1); Creatinine Clr Calc Pharmacy 91.9 ml/min; Est GFR (African American) 117.9; Est GFR (Non-African American) 101.7; Potassium 3.9 mmol/L (3.5-5.1)
[2018-07-01] MEDS: PANTOprazole 40 MG TAB PO SCH ×2 (08:04→19:59)
[2018-07-01] MEDS: PANCREAZE (LIPASE 10,500U) CAP PO SCH ×3 (08:04→17:25)
[2018-07-01] MEDS: INSULIN ASPART 100 UNITS/ML 3 ML PEN SC SCH ×4 (08:04→21:02)
[2018-07-01] MEDS: THIAMINE HCL 100 MG TAB PO SCH (08:04)
--- NOTE | 2018-07-01 14:15 | Hospitalist Progress Note ---
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 Echo 06/2016 which showed LVH, mildly reduced EF at 45-50%, regional wma, TR, Grade I diastolic dysfunction. Troponin detectable at 0.027, EKG with ST, no acute ST changes to signify ischemia, felt was demand ischemia Pulmonary: Patient's continues without need of oxygen at this time GI: Patient with EtOH abuse, cirrhosis of the liver with Grade I esophageal varices noted on prior EGD, elevated liver enzymes, pancreatitis and GIB her hemoglobin is now been stable Elevated LFTs - most likely EtOH hepatitis vs steatosis, MDF < 32, did not initiate treatment for EtOH hepatitis. Pancreatitis - elevated lipase, fat stranding noted on CT. pt is tolerant of advancing diet GIB - patient with bloody mucoid BM in ER. none additional Cirrhosis -noted GERD - Pepcid metabolic acidosis, multifactorial to include TYRONE, elevated lactate, possible ingestion and EtOH intoxication with alcohol ketosis. Alcoholic ketoacidosis: Improving Lactic acidosis: improving Hypokalemia replete Acute Kidney Injury: Improving Heme - GIB as above, continue to monitor ID - afebrile, antibiotics are stopped Endocrine - elevated blood glucose, patient with no documented history of DM -Insulin management by pharmacy Psych -eval does not feel pt is a risk to herself and have lifted -Suicide precautions, will be lifted pt no longer voices desire for self harm (2) Pancytopenia: continues with improving pancytopenia, no anaplasmosis inclusions are seen and peripheral smear review Likely consistent with cirrhosis and sequestration Subjective pt feels much better, has better pain control, states she is looking to return to home with home health. is able to tolerate po intake, +/- some diarrhea Review of Systems Review of Systems: ROS: fatigued and chronically ill appearing No double vision blurry vision No problems with speech or swallowing No palpitations, chest pain or pressure No Wheezing or breathing issues minor central abdominal pain no nausea vomiting occasional diarrhea No burning urine urine frequency or changes in color some left leg pain controlled with nucynta No skin rashes or oral lesions No unusual bruising or bleeding No focused back pain or numbness or loss of strength No changes in memory or confusion Physical Exam Physical Exam: The patient appeared chronically ill Vital signs as documented. Head exam is unremarkable. normocephalic, atraumatic Neck is without jugular venous distension, thyromegaly, or lymphademopathy Lungs are clear to auscultation and percussion. Cardiac exam reveals Rhythm is regular. First and second heart sounds normal. Abdominal exam reveals normal bowel sounds, no masses, no organomegaly, has minor abdominal discomfort to exam Extremities are nonedematous and both pedal pulses are present Neurologic exam is A&Ox3, no focal deficits, strength is equal bilateral Psychologically seems neither anxious or depressed Skin is warm Dry without bruises or lesions Results & Data Vital Signs (Past 12 Hours) Vital Signs Temp Pulse Pulse Resp BP Pulse Ox 07/01/18 08:00 69 07/01/18 07:11 36.6 C 71 16 95/61 L 94
[2018-07-01] MEDS: MAGNESIUM OXIDE 400 MG TAB PO SCH (20:01)
[2018-07-01] MEDS: CARBOHYDRATES FOR HYPOGLYCEMIA PO PRN (20:38)
[2018-07-02] MEDS: ONDANSETRON INJ 2 MG/ML 2 ML VIAL IV SCH ×4 (00:11→18:10)
[2018-07-02] MEDS: LOPERAMIDE HCL 2 MG CAP PO PRN ×2 (03:03→12:05)
[2018-07-02] MEDS: TAPENTADOL HCL 50 MG TAB PO PRN ×3 (06:12→22:05)
[2018-07-02 06:33] LABS: Hematocrit (blood only) 25.5 % (37-47); Hemoglobin 8.1 g/dL (12.0-16.0); Mean Corpuscular Hgb Conc 31.8 g/dL (32-36); Mean Corpuscular Volume 87.3 fL (80-100); Mean Platelet Volume 10.4 fL (7.4-10.4); Platelet Count 123 K/uL (130-400); RDW Standard Deviation 63.2 fL (36.4-46.3); Red Blood Count 2.92 M/uL (4.2-5.4); White Blood Count 2.24 K/uL (4.8-10.8)
[2018-07-02 07:04] LABS: Calcium 7.9 mg/dl (8.5-10.1); Creatinine Clr Calc Pharmacy 101.5 ml/min; Est GFR (African American) 121.8; Est GFR (Non-African American) 105.1; Potassium 3.7 mmol/L (3.5-5.1)
[2018-07-02] MEDS: PANCREAZE (LIPASE 10,500U) CAP PO SCH ×3 (08:06→16:24)
[2018-07-02] MEDS: THIAMINE HCL 100 MG TAB PO SCH (08:06)
[2018-07-02] MEDS: INSULIN ASPART 100 UNITS/ML 3 ML PEN SC SCH ×4 (08:06→22:14)
[2018-07-02] MEDS: PANTOprazole 40 MG TAB PO SCH ×2 (08:06→20:23)
[2018-07-02] MEDS ORDERED: SODIUM CHLORIDE 0.9% 500 ML IV SCH (12:00)
--- NOTE | 2018-07-02 14:34 | Hospitalist Progress Note ---
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 Echo 06/2016 which showed LVH, mildly reduced EF at 45-50%, regional wma, TR, Grade I diastolic dysfunction. Troponin detectable at 0.027, EKG with ST, no acute ST changes to signify ischemia, felt was demand ischemia Pulmonary: Patient's continues without need of oxygen at this time GI: Patient with EtOH abuse, cirrhosis of the liver with Grade I esophageal varices noted on prior EGD, elevated liver enzymes, pancreatitis and GIB her hemoglobin is now been stable Elevated LFTs - most likely EtOH hepatitis vs steatosis, MDF < 32, did not initiate treatment for EtOH hepatitis. Pancreatitis - elevated lipase, fat stranding noted on CT. pt is tolerant of advancing diet GIB - patient with bloody mucoid BM in ER. none additional Cirrhosis -noted GERD - Pepcid metabolic acidosis, multifactorial to include TYRONE, elevated lactate, possible ingestion and EtOH intoxication with alcohol ketosis. Alcoholic ketoacidosis: Improving Lactic acidosis: improving Hypokalemia replete Acute Kidney Injury: Improving Heme - GIB as above, continue to monitor ID - afebrile, antibiotics are stopped Endocrine - elevated blood glucose, patient with no documented history of DM -Insulin management by pharmacy Psych -eval does not feel pt is a risk to herself and have lifted -Suicide precautions, will be lifted pt no longer voices desire for self harm at time of discharge attending will need to sign page 7 lifting [id number] petition (2) Pancytopenia: continues with improving pancytopenia, no anaplasmosis inclusions are seen and peripheral smear review Likely consistent with cirrhosis and sequestration Subjective this pt is doing much better, we will try to cut her librium. she is complaining of poor sleep, will have seroquel hs to try to help I spent the bulk of the visit talking about not drinking again Review of Systems Review of Systems: ROS: well nourished well developed. No double vision blurry vision No problems with speech or swallowing No palpitations, chest pain or pressure No Wheezing or breathing issues No abdominal pain does have occasional vomiting but is much improved when she came in No burning urine urine frequency or changes in color No focal joint pain or muscle pain No skin rashes or oral lesions No unusual bruising or bleeding No focused back pain or numbness or loss of strength No changes in memory or confusion Physical Exam Physical Exam: The patient appeared well nourished and normally developed. Vital signs as documented. Head exam is unremarkable. normocephalic, atraumatic Neck is without jugular venous distension, thyromegaly, or lymphademopathy Lungs are clear to auscultation and percussion. Cardiac exam reveals Rhythm is regular. First and second heart sounds normal. Abdominal exam reveals normal bowel sounds, no masses, no organomegaly Extremities are nonedematous and both pedal pulses are present Neurologic exam is A&Ox3, no focal deficits, strength is equal bilateral Psychologically seems depressed Skin is warm Dry without bruises or lesions Results & Data Vital Signs (Past 12 Hours) Vital Signs Temp Pulse Pulse Resp BP BP Pulse Ox 07/02/18 13:45 83 107/74 07/02/18 11:37 37.1 C 87 18 73/43 L 69/41 L 98 07/02/18 08:00 82 07/02/18 07:46 37.0 C 75 17 91/59 L 96
[2018-07-02] MEDS: MAGNESIUM OXIDE 400 MG TAB PO SCH (20:24)
[2018-07-02] MEDS: QUETIAPINE FUMARATE 25 MG TABLET PO SCH (22:06)
[2018-07-03] MEDS: ONDANSETRON INJ 2 MG/ML 2 ML VIAL IV SCH ×4 (00:53→18:01)
[2018-07-03] MEDS: LOPERAMIDE HCL 2 MG CAP PO PRN ×2 (03:17→16:21)
[2018-07-03] MEDS: TAPENTADOL HCL 50 MG TAB PO PRN ×4 (03:54→22:32)
[2018-07-03 07:01] LABS: BUN Creatinine Ratio 21.1 (10-20); Calcium 7.8 mg/dl (8.5-10.1); Creatinine Clr Calc Pharmacy 111.3 ml/min; Est GFR (African American) 125.5; Est GFR (Non-African American) 108.3; Potassium 3.6 mmol/L (3.5-5.1)
[2018-07-03] MEDS: THIAMINE HCL 100 MG TAB PO SCH (08:35)
[2018-07-03] MEDS: PANCREAZE (LIPASE 10,500U) CAP PO SCH ×3 (08:35→16:22)
[2018-07-03] MEDS: INSULIN ASPART 100 UNITS/ML 3 ML PEN SC SCH ×4 (08:36→21:17)
[2018-07-03] MEDS: PANTOprazole 40 MG TAB PO SCH ×2 (08:36→20:59)
[2018-07-03] MEDS: QUETIAPINE FUMARATE 25 MG TABLET PO SCH (20:59)
[2018-07-03] MEDS: MAGNESIUM OXIDE 400 MG TAB PO SCH (20:59)
--- NOTE | 2018-07-03 22:13 | Hospitalist Progress Note ---
Date of Service July 03, 2018 Assessment & Plan (1) Metabolic acidosis: toxic encephalopathy Neuro: suspect polysubstance toxic encephalopathy this is resolved Was getting tremulous on 06/26 started on Librium dose reduced on 06/28 tremulousness is controlled and there is no tachycardia or hypertension Tapering Librium once again on 07/01, discontinued 07/02 initiating seroquel hs for sleep. Cardiovascular: Patient initially tachycardic, hypotensive, s/p 4L fluid resuscitation and Levophed initiated with improvement in BP now off Levaphed. Echo 06/2016 which showed LVH, mildly reduced EF at 45-50%, regional wma, TR, Grade I diastolic dysfunction. Troponin detectable at 0.027, EKG with ST, no acute ST changes to signify ischemia, felt was demand ischemia Pulmonary: Patient's continues without need of oxygen at this time GI: Patient with EtOH abuse, cirrhosis of the liver with Grade I esophageal varices noted on prior EGD, elevated liver enzymes, pancreatitis and GIB her hemoglobin is now been stable Elevated LFTs - most likely EtOH hepatitis vs steatosis, MDF < 32, did not initiate treatment for EtOH hepatitis. Pancreatitis - elevated lipase, fat stranding noted on CT. pt is tolerant of advancing diet GIB - patient with bloody mucoid BM in ER. none additional Cirrhosis -noted GERD - Pepcid metabolic acidosis, multifactorial to include TYRONE, elevated lactate, possible ingestion and EtOH intoxication with alcohol ketosis. Alcoholic ketoacidosis: Improving Lactic acidosis: improving Hypokalemia replete Acute Kidney Injury: Improving Heme - GIB as above, continue to monitor ID - afebrile, antibiotics are stopped Endocrine - elevated blood glucose, patient with no documented history of DM -Insulin management by pharmacy Psych -eval does not feel pt is a risk to herself and have lifted -Suicide precautions, will be lifted pt no longer voices desire for self harm at time of discharge attending will need to sign page 7 lifting 302 petition Hypotension: BP has been borderline low with systolic at 90. Will continue to monitor patient. With plan to discharge tomorrow. (2) Pancytopenia: continues with improving pancytopenia, no anaplasmosis inclusions are seen and peripheral smear review Likely consistent with cirrhosis and sequestration Spent 35 minutes in management of patient. Subjective Patient reports feeling relatively weak today. She states she has no new complaints just that her energy is low. D/W nurse, her Blood pressure has also been low throughout the day Review of Systems 2 Review of Systems: All systems reviewed & are unremarkable except as noted in HPI & below Physical Exam Physical Exam: The patient appeared well nourished and normally developed. Vital signs as documented. Head exam is unremarkable. normocephalic, atraumatic Neck is without jugular venous distension, thyromegaly, or lymphademopathy Lungs are clear to auscultation and percussion. Cardiac exam reveals Rhythm is regular. First and second heart sounds normal. Abdominal exam reveals normal bowel sounds, no masses, no organomegaly Extremities are nonedematous and both pedal pulses are present Neurologic exam is A&Ox3, no focal deficits, strength is equal bilateral Psychologically seems depressed Skin is warm Dry without bruises or lesions Results & Data Vital Signs (Past 12 Hours) Vital Signs Temp Pulse Pulse Resp BP BP Pulse Ox 07/03/18 20:01 36.9 C 86 20 95/61 L 96 07/03/18 16:00 86 07/03/18 14:56 36.8 C 89 20 96/63 L 96 07/03/18 11:36 36.8 C 88 20 90/61 L 95
[2018-07-04] MEDS: ONDANSETRON INJ 2 MG/ML 2 ML VIAL IV SCH ×5 (00:06→23:52)
[2018-07-04] MEDS: LOPERAMIDE HCL 2 MG CAP PO PRN ×2 (03:11→10:07)
[2018-07-04] MEDS: TAPENTADOL HCL 50 MG TAB PO PRN ×4 (04:35→23:52)
[2018-07-04 07:05] LABS: Hematocrit (blood only) 23.6 % (37-47); Hemoglobin 7.5 g/dL (12.0-16.0); Mean Corpuscular Hgb Conc 31.8 g/dL (32-36); Mean Corpuscular Volume 87.1 fL (80-100); Mean Platelet Volume 10.1 fL (7.4-10.4); Platelet Count 143 K/uL (130-400); RDW Coefficient of Variation 20.5 % (11.5-14.5); RDW Standard Deviation 64.2 fL (36.4-46.3); Red Blood Count 2.71 M/uL (4.2-5.4); White Blood Count 2.02 K/uL (4.8-10.8)
[2018-07-04 07:31] LABS: BUN Creatinine Ratio 24.3 (10-20); Creatinine Clr Calc Pharmacy 103.3 ml/min; Est GFR (African American) 122.5; Est GFR (Non-African American) 105.7
[2018-07-04] MEDS: PANTOprazole 40 MG TAB PO SCH ×2 (08:19→21:09)
[2018-07-04] MEDS: THIAMINE HCL 100 MG TAB PO SCH (08:19)
[2018-07-04] MEDS: PANCREAZE (LIPASE 10,500U) CAP PO SCH ×3 (08:19→18:02)
[2018-07-04] MEDS: INSULIN ASPART 100 UNITS/ML 3 ML PEN SC SCH ×4 (08:20→21:07)
[2018-07-04] MEDS: CARBOHYDRATES FOR HYPOGLYCEMIA PO PRN (14:17)
--- NOTE | 2018-07-04 15:22 | Gastroenterology Progress Note ---
Date of Service July 04, 2018 Assessment & Plan (1) Transaminitis: (2) Elevated lipase: (3) Anemia: (4) GI bleed: 53 year old female admitted w/ ETOH intoxication, metabolic acidosis, ketosis, TYRONE - GI asked to initially evaluated 06/23/18 for bloody stools. Hx of gastric bypass w anastomotic ulcers, stenosis s/p dilation. EGD in 2017 also noted grade I esophageal varices. At that time, endoscopy was deferred given her elevated troponin, low K and she was managed conservatively w/ IV PPI and IV octreotide. Per pt she had continued rectal bleeding, coffee ground appearing emesis until 06/28/18. Since, she endorses brown semi-formed stools and intermittent episodes of emesis but no further evidence of GIB. This AM, HGB repeated w/ HGB 7.5. She has been hypotensive and tachycardia this admission w/ systolics in 90's. She ate soup and a grilled cheese sandwich around noon. - NPO - Repeat H&H pending - Would restart IV PPI bolus, drip - Would start Octreotide bolus and drip - Will discuss EGD w/ attending - Trend H&H - Transfuse PRN - Monitor and document all GI output - Electrolyte correction per primary service - ETOH cessation and rehab recommended Thank you for allowing us to participate in the care of this patient. Please call with any acute changes, questions or concerns. Please see addendum below with additional recommendation from my supervising physician. Supervising Physician Co-Signing Physician Notes I performed a history and physical examination of the patient, including specifically on physical exam - soft, nontender abdomen. I have discussed the patient's management with Nicole. Please refer to the nurse practitioner's note for the documented findings and plan of care. Patient with drop in H/H and Hx of anastomotic ulcer and esophageal varices, no overt GI bleeding. Plan for EGD tomorrow Subjective Pt was seen and evaluated, chart reviewed. GI asked to re-evaluate the pt given drop in HGB. She notes at time of admission 06/23/18 she was having coffee ground emesis, intermittent bloody stools. She suggests this resolved around 06/28/18. Since, has been having loose, brown stools. Denies any dark, tarry stools. No BRBPR. She has had decreased appetite but has been tolerating PO. Yesterday had post-prandial emesis (food/bile) without any evidence of coffee ground emesis or hematemesis. This AM was feeling well and tolerated complete regular breakfast. She has just finished lunch around 1 pm and notes she ate a grilled cheese sandwich and soup. Today has had intermittent lightheadedness and notes her blood pressure is lower than normal. No fever, chills, CP, SOB. EGD 08/25/16: Normal esophagus. Jeffy-en-Y gastrojejunostomy with gastrojejunal anastomosis characterized by ulceration and luminal narrowing. No specimens collected. 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 proceed with cholecystectomy EGD 07/26/14: normal examined jejunum, empiric dilation, follow up as needed EGD 06/18/14: could not pass 9mm scope, dilation, repeat if symptoms EGD 05/21/14: could not pass 9mm scope, dilation at stricture repeat in 2-3 weeks EGD 04/22/14: dilation at stricture, repeat in 1 week EGD 04/01/14: dilation at stricture, repeat in 1 week EGD 03/26/14: dilation at stricture, repeat in 1 week, consult surgery EGD 03/01/14: dilation at stricture repeat in 2 weeks EGD 02/27/14: dilation at stricture repeat in 2 weeks EGD 02/18/14: could not pass through stenotic gastrojejunal anastomosis Colonoscopy 02/18/14: entire examined colon is normal, normal ileum Review of Systems Constitutional: no fever, no chills, no body aches and no fatigue Respiratory: no cough, no dyspnea and no pain on inspiration Cardiovascular: no chest pain, no radiating jaw, neck or arm pain, no dyspnea on exertion and no palpitations Gastrointestinal: no abdominal pain, no belching, no bloating, no early satiety, no heartburn, no nausea, no vomiting, no coffee ground emesis, no hematemesis, no pain with swallowing, no dysphagia, no cramping, no excessive flatulence, no change in bowel habits, no change in stools, no constipation, no diarrhea/loose stools, no fecal incontinence, no constant urge to pass stools, no blood in stools, no melena and no problem reported Physical Exam Constitutional: WD/WN, vitals as above Neck: trachea midline Respiratory: normal respiratory effort, lungs clear to auscultation Cardiovascular: Rate/Rhythm: regular rhythm and + tachycardic Extremities: no edema Gastrointestinal (Abdomen): Inspection/Auscultation: normal bowel sounds Percussion/Palpation: abdomen soft; abdomen nontender, no guarding and abdomen not rigid Skin: no rashes, warm and dry Psychiatric: Orientation: alert and oriented x 3 Results & Data Vital Signs (Past 12 Hours) Vital Signs Temp Pulse Pulse Resp BP BP Pulse Ox 07/04/18 11:39 36.8 C 105 H 20 90/52 L 96 07/04/18 07:58 36.5 C 78 18 133/82 95 07/04/18 07:46 36.9 C 101 H 18 91/61 L 97 07/04/18 07:31 76 07/04/18 04:09 36.8 C 87 16 92/60 L 97
[2018-07-04 15:26] LABS: Ferritin 18.6 ng/ml (8-388)
[2018-07-04] MEDS: OCTREOTIDE ACETATE 500 MCG in 0.9 % SODIUM CHLORIDE 100 ML IV SCH (18:28)
[2018-07-04] MEDS: QUETIAPINE FUMARATE 25 MG TABLET PO SCH (21:09)
[2018-07-04] MEDS: MAGNESIUM OXIDE 400 MG TAB PO SCH (21:09)
--- NOTE | 2018-07-04 22:53 | Hospitalist Progress Note ---
Date of Service July 04, 2018 Assessment & Plan (1) Metabolic acidosis: toxic encephalopathy Neuro: suspect polysubstance toxic encephalopathy this is resolved Was getting tremulous on 06/26 started on Librium dose reduced on 06/28 tremulousness is controlled and there is no tachycardia or hypertension Tapering Librium once again on 07/01, discontinued 07/02 initiating seroquel hs for sleep. Cardiovascular: Patient initially tachycardic, hypotensive, s/p 4L fluid resuscitation and Levophed initiated with improvement in BP now off Levaphed. Echo 06/2016 which showed LVH, mildly reduced EF at 45-50%, regional wma, TR, Grade I diastolic dysfunction. Troponin detectable at 0.027, EKG with ST, no acute ST changes to signify ischemia, felt was demand ischemia Pulmonary: Patient's continues without need of oxygen at this time GI: Patient with EtOH abuse, cirrhosis of the liver with Grade I esophageal varices noted on prior EGD, elevated liver enzymes, pancreatitis and GIB her hemoglobin has been decreasing recently now 7.5; will consult gastro. Elevated LFTs - most likely EtOH hepatitis vs steatosis, MDF < 32, did not initiate treatment for EtOH hepatitis. Pancreatitis - elevated lipase, fat stranding noted on CT. pt is tolerant of advancing diet GIB - patient with bloody mucoid BM in ER. none additional Cirrhosis -noted GERD - Pepcid metabolic acidosis, multifactorial to include TYRONE, elevated lactate, possible ingestion and EtOH intoxication with alcohol ketosis. Alcoholic ketoacidosis: Improving Lactic acidosis: improving Hypokalemia replete Acute Kidney Injury: Improving Heme - GIB as above, will reconsult Gastro. Plan is for possible upper endscopy given that hemoglobin has dropped. ID - afebrile, antibiotics are stopped Endocrine - elevated blood glucose, patient with no documented history of DM -Insulin management by pharmacy Psych -eval does not feel pt is a risk to herself and have lifted -Suicide precautions, will be lifted pt no longer voices desire for self harm at time of discharge attending will need to sign page 7 lifting 302 petition Hypotension: BP has been borderline low with systolic at 90. Will continue to monitor patient. With plan to discharge tomorrow. (2) Pancytopenia: continues with improving pancytopenia, no anaplasmosis inclusions are seen and peripheral smear review Likely consistent with cirrhosis and sequestration Spent 35 minutes in management of patient. Discharge is held. Will need upper GI scope in AM. Subjective Patient reports that she continues to feel weak, but will be open for discharge. Patient denies any change in her stool color, but does refer havng looose stools. Review of Systems Review of Systems: All systems reviewed & are unremarkable except as noted in HPI & below Physical Exam Physical Exam: The patient appeared well nourished and normally developed. Patient does appear more pale today. Vital signs as documented. Head exam is unremarkable. normocephalic, atraumatic Neck is without jugular venous distension, thyromegaly, or lymphademopathy Lungs are clear to auscultation and percussion. Cardiac exam reveals Rhythm is regular. First and second heart sounds normal. Abdominal exam reveals normal bowel sounds, no masses, no organomegaly Extremities are nonedematous and both pedal pulses are present Neurologic exam is A&Ox3, no focal deficits, strength is equal bilateral Psychologically seems depressed Skin is warm Dry without bruises or lesions Results & Data Vital Signs (Past 12 Hours) Vital Signs Temp Pulse Pulse Resp BP Pulse Ox 07/04/18 19:40 36.9 C 71 18 102/69 98 07/04/18 15:43 36.9 C 91 H 18 96/61 L 96 07/04/18 15:42 91 H 07/04/18 11:39 36.8 C 105 H 20 90/52 L 96
[2018-07-05] MEDS: OCTREOTIDE ACETATE 500 MCG in 0.9 % SODIUM CHLORIDE 100 ML IV SCH ×3 (03:23→23:15)
[2018-07-05] MEDS: ONDANSETRON INJ 2 MG/ML 2 ML VIAL IV SCH ×4 (05:35→23:17)
[2018-07-05] MEDS: PANTOprazole 40 MG TAB PO SCH (09:10)
[2018-07-05] MEDS: PANCREAZE (LIPASE 10,500U) CAP PO SCH ×3 (09:10→15:26)
[2018-07-05] MEDS: THIAMINE HCL 100 MG TAB PO SCH (09:10)
[2018-07-05] MEDS: INSULIN ASPART 100 UNITS/ML 3 ML PEN SC SCH ×4 (09:11→21:14)
--- NOTE | 2018-07-05 09:17 | Gastroenterology Progress Note ---
Date of Service July 05, 2018 Assessment & Plan (1) Transaminitis: (2) Elevated lipase: (3) Anemia: (4) GI bleed: 53 year old female admitted w/ ETOH intoxication, metabolic acidosis, ketosis, TYRONE - GI asked to initially evaluated 06/23/18 for bloody stools. Hx of gastric bypass w anastomotic ulcers, stenosis s/p dilation. EGD in 2017 also noted grade I esophageal varices. At that time, endoscopy was deferred given her elevated troponin, low K and she was managed conservatively w/ IV PPI and IV octreotide. Per pt she had continued rectal bleeding, coffee ground appearing emesis until 06/28/18. Since, she endorses brown semi-formed stools and intermittent episodes of emesis but no further evidence of GIB. This AM, HGB repeated w/ HGB 7.5. She has been hypotensive and tachycardia this admission w/ systolics in 90's. She ate soup and a grilled cheese sandwich around noon. Started on Octreotide, PO PPI. Remained clinically stable. NPO for EGD this AM. - NPO - Continue PPI - Continue Octreotide - EGD today - Trend H&H - Transfuse PRN - Monitor and document all GI output - Electrolyte correction per primary service - ETOH cessation and rehab recommended Thank you for allowing us to participate in the care of this patient. Please call with any acute changes, questions or concerns. Please see addendum below with additional recommendation from my supervising physician. Supervising Physician Co-Signing Physician Notes I performed a history and physical examination of the patient, including specifically on physical exam - soft, nontender abdomen. I have discussed the patient's management with Nicole. Please refer to the nurse practitioner's note for the documented findings and plan of care. EGD for anemia Subjective Pt was seen and evaluated, chart reviewed. NPO for EGD. Does have abd pain this AM. Mild nausea. No vomiting. Denies any BM overnight. No black/bloody stools. No fever, chills, CP, SOB. Review of Systems Constitutional: no fever, no chills, no body aches and no fatigue Respiratory: no cough, no dyspnea and no pain on inspiration Cardiovascular: no chest pain, no radiating jaw, neck or arm pain, no dyspnea on exertion and no palpitations Gastrointestinal: + abdominal pain and + nausea; no early satiety, no vomiting, no coffee ground emesis, no blood in stools and no melena Physical Exam Constitutional: WD/WN, vitals as above Respiratory: normal respiratory effort, lungs clear to auscultation Cardiovascular: Rate/Rhythm: regular rate and regular rhythm Extremities: no edema Gastrointestinal (Abdomen): Inspection/Auscultation: normal bowel sounds Percussion/Palpation: abdomen soft; abdomen nontender, no guarding and abdomen not rigid Skin: no rashes, warm and dry Psychiatric: Orientation: alert and oriented x 3 Results & Data Vital Signs (Past 12 Hours) Vital Signs Temp Pulse Pulse Resp BP BP Pulse Ox 07/05/18 07:59 36.7 C 66 16 104/66 93 07/05/18 03:48 80 07/05/18 03:05 36.8 C 78 18 99/63 L 98 07/04/18 22:50 36.9 C 79 20 80/48 L 95 Laboratory Results 07/05/18 07/04/18 07/04/18 Range/Units 07:45 20:14 16:26 Hgb (12.0-16.0) g/dL Hct (37-47) % POC Glucose 132 H 185 H 110 H (70-99) Iron (35-150) mcg/dl TIBC (250-450) mcg/dl Ferritin (8-388) ng/ml 07/04/18 07/04/18 07/04/18 Range/Units 14:56 14:56 14:37 Hgb 9.0 L (12.0-16.0) g/dL Hct 29.0 L (37-47) % POC Glucose 121 H (70-99) Iron 16 L (35-150) mcg/dl TIBC 462 H (250-450) mcg/dl Ferritin 18.6 (8-388) ng/ml 07/04/18 07/04/18 07/04/18 Range/Units 14:11 14:09 11:28 Hgb (12.0-16.0) g/dL Hct (37-47) % POC Glucose 52 L* 47 L* 110 H (70-99) Iron (35-150) mcg/dl TIBC (250-450) mcg/dl Ferritin (8-388) ng/ml
--- NOTE | 2018-07-05 14:47 | Anesthesiology Consultation ---
Date of Service July 05, 2018 L sided weakness since pelvic fracture from accident. Patient ambulated with a walker. Assessment & Plan (1) Encounter for pre-operative examination: (2) Encounter for pre-operative examination: History Surgery Operation Date: 07/05/18 08:30 Proposed Procedures p Esophagogastroduodenoscopy Dr Correa - Nia Correa MD Height/Weight Height: 5 ft 5 in Weight: 59.1 kg Allergies Allergy/AdvReac Type Severity Reaction Status Date / Time clarithromycin Allergy Intermediate HIVES Verified 08/03/17 04:46 aspirin Allergy Mild Verified 08/03/17 04:46 tramadol Allergy Mild Verified 08/03/17 04:46 oxaprozin Allergy Unknown Verified 08/03/17 04:46 Medications Home Medications Medication Instructions Recorded Confirmed Last Taken Unobtainable 06/22/18 06/22/18 Unknown quetiapine 25 mg PO HS #30 tab 07/03/18 Unknown [id number] [Creon] 1 cap PO TIDM #90 cap 07/04/18 Unknown loperamide 2 mg PO Q6H PRN #60 cap 07/04/18 Unknown magnesium oxide 800 mg PO HS #15 tab 07/04/18 Unknown pantoprazole 40 mg PO BID #60 tab 07/04/18 Unknown thiamine HCl (vitamin B1) [Vitamin 100 mg PO QAM #30 tab 07/04/18 Unknown B-1] Active Medications Generic Name Dose Route Start Last Admin Trade Name Freq PRN Reason Stop Dose Admin Lipase/Protease/Amylase 1 cap 06/25/18 12:00 07/05/18 15:26 Pancreaze (Lipase 10,500u) PO 07/25/18 11:59 Not Given TIDM MICHELLE Dextrose 25 - 50 ml 06/23/18 02:30 06/23/18 16:50 Dextrose 50% IV 07/23/18 02:29 25 ml UD PRN Administration Hypoglycemia Protocol Protocol Heparin Sodium (Beef Lung) 5 ml 06/23/18 23:07 06/27/18 06:07 Heparin Sod 10 Unit/Ml Flush FLUSH 07/23/18 23:06 10 ml PRN PRN Administration Flush Octreotide Acetate 500 mcg/ 105 mls @ 10.5 mls/hr 07/04/18 17:45 07/05/18 13:21 Sodium Chloride IV 08/03/18 17:44 50 mcg/hr .Q10H MICHELLE 10.5 mls/hr Administration 50 MCG/HR Insulin Aspart 0 units 06/24/18 16:30 07/05/18 11:50 Novolog Flexpen SC 07/24/18 16:29 Not Given ACHS MICHELLE Loperamide HCl 2 mg 06/26/18 13:47 07/04/18 10:07 Imodium PO 07/26/18 13:46 2 mg Q6H PRN Administration Diarrhea Magnesium Oxide 800 mg 06/24/18 21:00 07/04/18 21:09 Mag-Ox PO 07/24/18 20:59 800 mg HS MICHELLE Administration Miconazole Nitrate 1 appln 06/30/18 22:50 07/01/18 00:04 Desenex EXT 07/30/18 22:49 1 appln PRN PRN Administration PATIENT REQUEST for moisture Miscellaneous 15 - 30 gm 06/23/18 02:30 07/04/18 14:17 Carbohydrates For Hypoglycemia PO 07/23/18 02:29 30 gm PRN PRN Administration Hypoglycemia Treatment Ondansetron HCl 4 mg 06/23/18 02:15 07/05/18 11:51 Zofran IV 07/23/18 02:14 4 mg Q6 MICHELLE Administration Pantoprazole Sodium 40 mg 06/25/18 09:30 07/05/18 09:10 Protonix PO 07/25/18 09:29 Not Given BID MICHELLE Quetiapine Fumarate 25 mg 07/02/18 21:00 07/04/18 21:09 Seroquel PO 08/01/18 20:59 25 mg HS MICHELLE Administration Tapentadol 50 mg 06/26/18 15:57 07/04/18 23:52 Nucynta PO 07/10/18 15:56 50 mg Q6H PRN Administration Pain Thiamine HCl 100 mg 06/26/18 09:00 07/05/18 09:10 Vitamin B-1 PO 07/26/18 08:59 Not Given QAM MICHELLE NPO Date Last Intake of Fluids: 07/05/18 Time Last Intake of Fluids: 00:00 Date Last Intake of Solids: 07/05/18 Time Last Intake of Solids: 00:00 Past Medical History Medical History Cirrhosis History of hysterectomy Seizures None for greater than a year Lumbago (Chronic) Multiple sclerosis (Chronic) Alcohol abuse Factitious disorder Opiate addiction Presence of intrathecal pump containing morphine 0.189mg/day and fentanyl 2.52mcg/day miminimal rate Sedative abuse Past Family History Family History Other Aneurysm Cancer Stroke Past Surgical History Surgical History History of Jeffy-en-Y gastric bypass History of cholecystectomy History of open reduction and internal fixation (ORIF) procedure Social History Smoking Status: Never smoker Hx Alcohol Use: Yes Alcohol type: beer, wine and hard liquor alcohol intake frequency: 3 or more drinks per day Hx Substance Use: No substance use type: opiates and prescription drug Substance Use Type Other:: dilaudid, ativan, pt has indwelling pain pump Physical Exam Vital Signs Last Vital Signs Temp 37.2 C 07/05/18 15:42 Pulse 69 07/05/18 15:45 Resp 20 07/05/18 15:42 BP 137/81 07/05/18 15:42 Pulse Ox 96 07/05/18 15:42
[2018-07-05] MEDS ORDERED: PROPOFOL IV EMULSION 10 MG/ML 20 ML VIAL IV ONE ×2 (16:27→16:34)
[2018-07-05] MEDS ORDERED: ESMOLOL HCL INJ 10 MG/ML 10ML VIAL IV ONE (16:27)
[2018-07-05] MEDS ORDERED: LIDOCAINE HCL 2% 2 ML VIAL/AMP(20MG/ML) INFIL ONE (16:27)
[2018-07-05] MEDS ORDERED: METOCLOPRAMIDE HCL INJ 5 MG/ML 2 ML VIAL ONE (16:33)
[2018-07-05] MEDS ORDERED: PHENYLEPHRINE 100MCG/ML 5ML SYR ONE (16:34)
[2018-07-05] MEDS ORDERED: ONDANSETRON INJ 2 MG/ML 2 ML VIAL ONE (16:43)
[2018-07-05] MEDS ORDERED: fentaNYL citrate 100 MCG/2 ML VIAL ONE (17:05)
[2018-07-05] MEDS ORDERED: fentaNYL citrate 100 MCG/2 ML VIAL IV STA (17:05)
--- NOTE | 2018-07-05 17:12 | Anesthesiology Progress Note ---
Date of Service July 05, 2018 epigastric discomfort - got epi injections and a dilation of her stricture Anesthesia Post Procedure Vital Signs Vital Signs: Temp Pulse Pulse Resp BP BP Pulse Ox 07/05/18 16:56 103 H 18 133/88 98 07/05/18 16:42 109 H 16 117/48 L 95 07/05/18 15:45 69 07/05/18 15:42 37.2 C 74 20 137/81 96 07/05/18 15:06 37.2 C 69 20 136/85 97 07/05/18 11:18 36.9 C 68 20 115/77 97 07/05/18 11:11 94 07/05/18 09:00 73 07/05/18 07:59 36.7 C 66 16 104/66 93 07/05/18 03:48 80 07/05/18 03:05 36.8 C 78 18 99/63 L 98 07/04/18 22:50 36.9 C 79 20 80/48 L 95 07/04/18 19:40 36.9 C 71 18 102/69 98 Pain Intensity Bilateral Generalized: Pain Intensity: 6 Bilateral Head: Pain Intensity: 8 Bilateral Abdomen: Pain Intensity: 8 Left Generalized: Pain Intensity: 8 Back: Pain Intensity: 8 Transfer of Care Handoff Completed per policy Notes Mental Status: alert / awake / arousable Patient Amnestic to Procedure: Yes Nausea / Vomiting: adequately controlled Pain: adequately controlled Airway Patency, RR, SpO2: stable & adequate BP & HR: stable & adequate Hydration State: stable & adequate Anesthetic Complications: no major complications apparent
--- NOTE | 2018-07-05 17:18 | GI REPORT ---
Patient Name: Siena Saldana Procedure Date: 07/05/2018 3:44 PM Date of : 1965 Admit Type: Inpatient Age: 53 Gender: Female Attending MD: Nia Correa MD Procedure: Upper GI endoscopy Providers: Nia Correa MD Referring MD: Khoi Chi M.d. Indications: Suspected upper gastrointestinal bleeding, Anemia Medicines: Monitored Anesthesia Care Complications: No immediate complications. Estimated Blood Loss: Estimated blood loss: none. Procedure: Pre-Anesthesia Assessment: - Prior to the procedure, a History and Physical was performed, and patient medications and allergies were reviewed. The patient is competent. The risks and benefits of the procedure and the sedation options and risks were discussed with the patient. All questions were answered and informed consent was obtained. Patient identification and proposed procedure were verified by the physician and the nurse in the procedure room. Mental Status Examination: alert and oriented. Airway Examination: normal oropharyngeal airway and neck mobility. Respiratory Examination: clear to auscultation. CV Examination: normal. ASA Grade Assessment: III - A patient with severe systemic disease. After reviewing the risks and benefits, the patient was deemed in satisfactory condition to undergo the procedure. The anesthesia plan was to use monitored anesthesia care (MAC). Immediately prior to administration of medications, the patient was re-assessed for adequacy to receive sedatives. The heart rate, respiratory rate, oxygen saturations, blood pressure, adequacy of pulmonary ventilation, and response to care were monitored throughout the procedure. The physical status of the patient was re-assessed after the procedure. After obtaining informed consent, the endoscope was passed under direct vision. Throughout the procedure, the patient's blood pressure, pulse, and oxygen saturations were monitored continuously. The Endoscope was introduced through the mouth, and advanced to the efferent jejunal loop. The upper GI endoscopy was accomplished without difficulty. The patient tolerated the procedure well. Findings: Two columns of large (> 5 mm) varices were found in the lower third of the esophagus. [place] signs were present. Three bands were successfully placed resulting in deflation of varices. There was no bleeding during the procedure. Evidence of a gastric bypass was found. A gastric pouch was found. The gastrojejunal anastomosis was characterized by severe stenosis. This was traversed after dilation. A TTS dilator was passed through the scope. Dilation with a 12-13.5-15 mm anastomotic balloon dilator was performed up to 15 mm. There was a minor ooz after dilation which was treated by injecting 1 mL of a 1:10,000 solution of epinephrine for hemostasis. There was an area of mucosal disruption in the blind loop of small bowel behind the anastomosis which could be due to injury from the tip of the dilation balloon. Two hemostatic clips were successfully placed (MR conditional) on that area. The examined jejunum was normal. Impression: - Large (> 5 mm) esophageal varices. Completely eradicated. Banded. - Gastric bypass. 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 Dilated. - Normal examined jejunum. - No specimens collected. Recommendation: - [facility]. - Clear liquid diet today then advance to soft diet for 3 days. - Continue present medications, IV Octreotide and PPI for 2 days. - Use Protonix (pantoprazole) 40 mg PO BID for 1 month then once daily. - Use sucralfate suspension 1 gram PO QID for 1 week. - Repeat upper endoscopy in 8 weeks for retreatment (banding) and dilation of the stenosis. Nia Correa MD 07/05/2018 5:18:28 PM This report has been signed electronically. Note Initiated On: 07/05/2018 3:44 PM Number of Addenda: 0 I attest to the content of the Intraoperative Record and orders documented therein, exceptions below {[id number]}
[2018-07-05] MEDS: PANTOprazole 40 MG in SYRINGE 0 ML IV SCH (18:23)
[2018-07-05] MEDS: SUCRALFATE 1 GM/10 ML UDC PO SCH (18:28)
[2018-07-05] MEDS: MAGNESIUM OXIDE 400 MG TAB PO SCH (18:28)
[2018-07-05] MEDS: QUETIAPINE FUMARATE 25 MG TABLET PO SCH (18:28)
[2018-07-05] MEDS ORDERED: PANTOprazole 40 MG in SYRINGE 0 ML IV SCH (21:00)
[2018-07-05] MEDS ORDERED: ACETAMINOPHEN 65 ML IV ONE (22:55)
--- NOTE | 2018-07-05 23:01 | Hospitalist Progress Note ---
Date of Service July 05, 2018 Assessment & Plan (1) Metabolic acidosis: toxic encephalopathy Neuro: suspect polysubstance toxic encephalopathy this is resolved Was getting tremulous on 06/26 started on Librium dose reduced on 06/28 tremulousness is controlled and there is no tachycardia or hypertension Tapering Librium once again on 07/01, discontinued 07/02 initiating seroquel hs for sleep. From this reagrd appears to be controlled. Cardiovascular: Patient initially tachycardic, hypotensive, s/p 4L fluid resuscitation and Levophed initiated with improvement in BP now off Levaphed. Echo 06/2016 which showed LVH, mildly reduced EF at 45-50%, regional wma, TR, Grade I diastolic dysfunction. Troponin detectable at 0.027, EKG with ST, no acute ST changes to signify ischemia, felt was demand ischemia Pulmonary: Patient's continues without need of oxygen at this time GI: Patient with EtOH abuse, cirrhosis of the liver with Grade I esophageal varices noted on prior EGD, elevated liver enzymes, pancreatitis and GIB her hemoglobin has been decreasing recently now 7.5 on 07/04; will consult gastro. Planned for EGD today. Concern over esophagela varices. Elevated LFTs - most likely EtOH hepatitis vs steatosis, MDF < 32, did not initiate treatment for EtOH hepatitis. Pancreatitis - elevated lipase, fat stranding noted on CT. pt is tolerant of advancing diet GIB - patient with bloody mucoid BM in ER. none additional Cirrhosis -noted GERD - Pepcid metabolic acidosis, multifactorial to include TYRONE, elevated lactate, possible ingestion and EtOH intoxication with alcohol ketosis. Alcoholic ketoacidosis: Improving Lactic acidosis: improving Hypokalemia replete Acute Kidney Injury: Improving Heme - GIB as above, will reconsult Gastro. Plan is for possible upper endscopy given that hemoglobin has dropped. ID - afebrile, antibiotics are stopped Endocrine - elevated blood glucose, patient with no documented history of DM -Insulin management by pharmacy Psych -eval does not feel pt is a risk to herself and have lifted -Suicide precautions, will be lifted pt no longer voices desire for self harm at time of discharge attending will need to sign page 7 lifting 302 petition Hypotension: BP has been borderline low with systolic at 90. Will continue to monitor patient given new anemia. (2) Pancytopenia: continues with improving pancytopenia, no anaplasmosis inclusions are seen and peripheral smear review Likely consistent with cirrhosis and sequestration Spent 25 minutes in management of patient. Subjective Patient reports having no new symptoms. She is awaiting her EGD later today. She still feels to be relatively weak. Review of Systems Review of Systems: All systems reviewed & are unremarkable except as noted in HPI & below Physical Exam Physical Exam: The patient appeared well nourished and normally developed. Patient continues to look pale today. Vital signs as documented. Head exam is unremarkable. normocephalic, atraumatic Neck is without jugular venous distension, thyromegaly, or lymphademopathy Lungs are clear to auscultation and percussion. Cardiac exam reveals Rhythm is regular. First and second heart sounds normal. Abdominal exam reveals normal bowel sounds, no masses, no organomegaly Extremities are nonedematous and both pedal pulses are present Neurologic exam is A&Ox3, no focal deficits, strength is equal bilateral Psychologically seems depressed Skin is warm Dry without bruises or lesions Results & Data Vital Signs (Past 12 Hours) Vital Signs Temp Pulse Pulse Pulse Resp BP BP 07/05/18 20:00 36.8 C 76 18 150/91 H 07/05/18 18:46 36.6 C 72 160/93 H 07/05/18 17:35 36.6 C 83 18 150/90 H 07/05/18 17:26 88 20 134/92 07/05/18 17:11 88 20 139/93 07/05/18 16:56 103 H 18 133/88 07/05/18 16:42 109 H 16 117/48 L 07/05/18 15:45 69 07/05/18 15:42 37.2 C 74 20 137/81 07/05/18 15:06 37.2 C 69 20 136/85 07/05/18 11:18 36.9 C 68 20 115/77 07/05/18 11:11 Pulse Ox 07/05/18 20:00 99 07/05/18 18:46 99 07/05/18 17:35 99 07/05/18 17:26 97 07/05/18 17:11 98 07/05/18 16:56 98 07/05/18 16:42 95 07/05/18 15:45 07/05/18 15:42 96 07/05/18 15:06 97 07/05/18 11:18 97 07/05/18 11:11 94
[2018-07-06] MEDS: ONDANSETRON INJ 2 MG/ML 2 ML VIAL IV SCH ×4 (04:54→23:40)
[2018-07-06 06:19] LABS: Hematocrit (blood only) 27.9 % (37-47); Hemoglobin 8.7 g/dL (12.0-16.0); Mean Corpuscular Hgb Conc 31.2 g/dL (32-36); Mean Corpuscular Volume 85.6 fL (80-100); Mean Platelet Volume 10.3 fL (7.4-10.4); Platelet Count 157 K/uL (130-400); RDW Coefficient of Variation 19.9 % (11.5-14.5); RDW Standard Deviation 62.2 fL (36.4-46.3); Red Blood Count 3.26 M/uL (4.2-5.4); White Blood Count 3.03 K/uL (4.8-10.8)
[2018-07-06] MEDS: PANCREAZE (LIPASE 10,500U) CAP PO SCH ×3 (07:38→18:04)
[2018-07-06] MEDS: THIAMINE HCL 100 MG TAB PO SCH (07:39)
[2018-07-06] MEDS: SUCRALFATE 1 GM/10 ML UDC PO SCH ×4 (07:39→20:30)
[2018-07-06] MEDS: INSULIN ASPART 100 UNITS/ML 3 ML PEN SC SCH ×4 (07:46→21:17)
[2018-07-06] MEDS: OCTREOTIDE ACETATE 500 MCG in 0.9 % SODIUM CHLORIDE 100 ML IV SCH ×2 (09:00→20:31)
[2018-07-06] MEDS: PANTOprazole 40 MG in SYRINGE 0 ML IV SCH ×2 (09:00→20:30)
--- NOTE | 2018-07-06 09:17 | Gastroenterology Progress Note ---
Date of Service July 06, 2018 Assessment & Plan (1) Transaminitis: (2) Elevated lipase: (3) Anemia: (4) GI bleed: 53 year old female admitted w/ ETOH intoxication, metabolic acidosis, ketosis, TYRONE - GI asked to initially evaluated 06/23/18 for bloody stools. Hx of gastric bypass w anastomotic ulcers, stenosis s/p dilation. EGD in 2017 also noted grade I esophageal varices. At that time, endoscopy was deferred given her elevated troponin, low K and she was managed conservatively w/ IV PPI and IV octreotide. Per pt she had continued rectal bleeding, coffee ground appearing emesis until 06/28/18. Since, she endorses brown semi-formed stools and intermittent episodes of emesis but no further evidence of GIB. This AM, HGB repeated w/ HGB 7.5. She has been hypotensive and tachycardia this admission w/ systolics in 90's. She ate soup and a grilled cheese sandwich around noon. Started on Octreotide, PO PPI. Remained clinically stable. NPO for EGD this AM. S/P EGD w/ dilation of stenosis, banding of large varices. HGB this AM stable, brown stool this AM. Clear liquid diet today then advance to soft diet for 3 days. IV Octreotide for 48 hours IV PPI for 48 hours Then Protonix (pantoprazole) 40 mg PO BID for 1 month then once daily. Sucralfate suspension 1 gram PO QID for 1 week. Repeat upper endoscopy in 8 weeks for retreatment Trend H&H Transfuse PRN Monitor and document all GI output Electrolyte correction per primary service ETOH cessation and rehab recommended GI to sign off. Thank you for allowing us to participate in the care of this patient. Please call with any acute changes, questions or concerns. Please see addendum below with additional recommendation from my supervising physician. Supervising Physician Co-Signing Physician Notes I performed a history and physical examination of the patient, including specifically on physical exam - soft, nontender abdomen. I have discussed the patient's management with Nicole. Please refer to the nurse practitioner's note for the documented findings and plan of care. s/p EGD with anastomotic stricture dilation and esophageal varices banding, has brown stool now. Recommend: EGD as OP in 6-8 weeks for re banding. Recall GI if needed. Subjective Pt was seen and evaluated, chart reviewed. S/P EGD. No abd pain, no nausea, vomiting. Had a black stool yesterday following EGD. Nots this AM she had a formed brown stool. No BRBPR. No lightheadedness or dizziness. No fever, chils, CP, SOP EGD: Large (> 5 mm) esophageal varices. Completely eradicated. Banded. Gastric bypass. 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 Dilated. Normal examined jejunum. No specimens collected. Review of Systems Constitutional: no fever, no body aches, no weight loss and no weight gain Respiratory: no cough, no dyspnea and no wheezing Cardiovascular: no chest pain, no radiating jaw, neck or arm pain, no dyspnea on exertion and no claudication Gastrointestinal: no abdominal pain, no early satiety, no vomiting, no blood in stools and no melena Physical Exam Constitutional: WD/WN, vitals as above Respiratory: normal respiratory effort, lungs clear to auscultation Cardiovascular: Rate/Rhythm: regular rate and regular rhythm Gastrointestinal (Abdomen): normal bowel sounds, soft, nontender, no hepatosplenomegaly Skin: no rashes, warm and dry Results & Data Vital Signs (Past 12 Hours) Vital Signs Temp Pulse Pulse Resp BP BP Pulse Ox 07/06/18 07:17 37.0 C 93 H 16 138/76 95 07/06/18 02:54 36.8 C 95 H 20 139/92 97 07/06/18 00:40 75 07/05/18 23:02 37 C 70 18 123/76 97 Laboratory Results 07/06/18 07/06/18 07/05/18 Range/Units 07:39 05:53 20:42 WBC 3.03 L (4.8-10.8) K/uL RBC 3.26 L (4.2-5.4) M/uL Hgb 8.7 L (12.0-16.0) g/dL Hct 27.9 L (37-47) % MCV 85.6 (80-100) fL MCH 26.7 (25-34) pg MCHC 31.2 L (32-36) g/dL RDW Std Deviation 62.2 H (36.4-46.3) fL RDW Coeff of Chetan 19.9 H (11.5-14.5) % Plt Count 157 (130-400) K/uL MPV 10.3 (7.4-10.4) fL POC Glucose 138 H 156 H (70-99) 07/05/18 07/05/18 Range/Units 15:19 11:34 WBC (4.8-10.8) K/uL RBC (4.2-5.4) M/uL Hgb (12.0-16.0) g/dL Hct (37-47) % MCV (80-100) fL MCH (25-34) pg MCHC (32-36) g/dL RDW Std Deviation (36.4-46.3) fL RDW Coeff of Chetan (11.5-14.5) % Plt Count (130-400) K/uL MPV (7.4-10.4) fL POC Glucose 138 H 147 H (70-99)
[2018-07-06] MEDS: TAPENTADOL HCL 50 MG TAB PO PRN ×2 (11:54→18:02)
[2018-07-06] MEDS: cefTRIAXone SODIUM 1,000 MG in DEXTROSE 5% 50 ML IV SCH (18:05)
[2018-07-06] MEDS: QUETIAPINE FUMARATE 25 MG TABLET PO SCH (20:30)
[2018-07-06] MEDS: MAGNESIUM OXIDE 400 MG TAB PO SCH (20:30)
--- NOTE | 2018-07-06 22:15 | Hospitalist Progress Note ---
Date of Service July 06, 2018 Assessment & Plan (1) Metabolic acidosis: toxic encephalopathy Neuro: suspect polysubstance toxic encephalopathy this is resolved Was getting tremulous on 06/26 started on Librium dose reduced on 06/28 tremulousness is controlled and there is no tachycardia or hypertension Tapering Librium once again on 07/01, discontinued 07/02 initiating seroquel hs for sleep. Cardiovascular: Patient initially tachycardic, hypotensive, s/p 4L fluid resuscitation and Levophed initiated with improvement in BP now off Levaphed. Echo 06/2016 which showed LVH, mildly reduced EF at 45-50%, regional wma, TR, Grade I diastolic dysfunction. Troponin detectable at 0.027, EKG with ST, no acute ST changes to signify ischemia, felt was demand ischemia Pulmonary: Patient's continues without need of oxygen at this time GI: Patient with EtOH abuse, cirrhosis of the liver with Grade I esophageal varices noted on prior EGD, elevated liver enzymes, pancreatitis and GIB her hemoglobin has been decreasing recently now 7.5; will consult gastro. Appreciate input. S/P EGD w/ dilation of stenosis, banding of large varices. HGB this AM stable, brown stool this AM. Clear liquid diet today then advance to soft diet for 3 days. IV Octreotide for 48 hours IV PPI for 48 hours Then Protonix (pantoprazole) 40 mg PO BID for 1 month then once daily. Sucralfate suspension 1 gram PO QID for 1 week. Repeat upper endoscopy in 8 weeks for retreatment Elevated LFTs - most likely EtOH hepatitis vs steatosis, MDF < 32, did not initiate treatment for EtOH hepatitis. Pancreatitis - elevated lipase, fat stranding noted on CT. pt is tolerant of advancing diet GIB - patient with bloody mucoid BM in ER. none additional Cirrhosis -noted GERD - Pepcid metabolic acidosis, multifactorial to include TYRONE, elevated lactate, possible ingestion and EtOH intoxication with alcohol ketosis. Alcoholic ketoacidosis: Improving Lactic acidosis: improving Hypokalemia replete Acute Kidney Injury: Improving Heme - As noted above. Hemoglobin has remained stable. will monitor. ID - afebrile, antibiotics are stopped Endocrine - elevated blood glucose, patient with no documented history of DM -Insulin management by pharmacy Psych -eval does not feel pt is a risk to herself and have lifted -Suicide precautions, will be lifted pt no longer voices desire for self harm at time of discharge attending will need to sign page 7 lifting 302 petition Hypotension: BP has been borderline low with systolic at 90. Will continue to monitor patient. With plan to discharge tomorrow. (2) Pancytopenia: continues with improving pancytopenia, no anaplasmosis inclusions are seen and peripheral smear review Likely consistent with cirrhosis and sequestration Spent 25 minutes in management of patient. Subjective Patient was seen and examined today. She had an EGD yesterday which showed esophageal varices. Today patient reports feeling well and does not have any significant complaints. Review of Systems Review of Systems: All systems reviewed & are unremarkable except as noted in HPI & below Physical Exam Physical Exam: The patient appeared well nourished and normally developed. Patient continues to look less pale today Vital signs as documented. Head exam is unremarkable. normocephalic, atraumatic Neck is without jugular venous distension, thyromegaly, or lymphademopathy Lungs are clear to auscultation and percussion. Cardiac exam reveals Rhythm is regular. First and second heart sounds normal. Abdominal exam reveals normal bowel sounds, no masses, no organomegaly Extremities are nonedematous and both pedal pulses are present Neurologic exam is A&Ox3, no focal deficits, strength is equal bilateral Psychologically seems depressed Skin is warm Dry without bruises or lesions Results & Data Vital Signs (Past 12 Hours) Vital Signs Temp Pulse Pulse Resp BP BP Pulse Ox 07/06/18 19:21 36.8 C 81 20 142/72 H 95 07/06/18 15:27 88 07/06/18 15:00 36.8 C 85 18 128/78 94 07/06/18 11:04 36.6 C 92 H 16 137/98 97
[2018-07-07] MEDS: TAPENTADOL HCL 50 MG TAB PO PRN ×4 (00:03→18:07)
[2018-07-07] MEDS: ONDANSETRON INJ 2 MG/ML 2 ML VIAL IV SCH ×4 (05:46→23:56)
[2018-07-07] MEDS: OCTREOTIDE ACETATE 500 MCG in 0.9 % SODIUM CHLORIDE 100 ML IV SCH ×2 (06:09→16:05)
[2018-07-07] MEDS: PANCREAZE (LIPASE 10,500U) CAP PO SCH ×3 (08:10→16:05)
[2018-07-07] MEDS: THIAMINE HCL 100 MG TAB PO SCH (08:10)
[2018-07-07] MEDS: SUCRALFATE 1 GM/10 ML UDC PO SCH ×4 (08:10→20:30)
[2018-07-07] MEDS: PANTOprazole 40 MG in SYRINGE 0 ML IV SCH ×2 (08:10→20:30)
[2018-07-07] MEDS: INSULIN ASPART 100 UNITS/ML 3 ML PEN SC SCH ×4 (08:11→21:21)
[2018-07-07] MEDS: cefTRIAXone SODIUM 1,000 MG in DEXTROSE 5% 50 ML IV SCH (18:06)
[2018-07-07] MEDS: QUETIAPINE FUMARATE 25 MG TABLET PO SCH (20:30)
[2018-07-07] MEDS: MAGNESIUM OXIDE 400 MG TAB PO SCH ×2 (20:30→22:15)
--- NOTE | 2018-07-07 23:12 | Hospitalist Progress Note ---
Date of Service July 07, 2018 Assessment & Plan (1) Metabolic acidosis: Metabolic acidosis: toxic encephalopathy Neuro: suspect polysubstance toxic encephalopathy this is resolved Was getting tremulous on 06/26 started on Librium dose reduced on 06/28 tremulousness is controlled and there is no tachycardia or hypertension Tapering Librium once again on 07/01, discontinued 07/02 initiating seroquel hs for sleep. Cardiovascular: Patient initially tachycardic, hypotensive, s/p 4L fluid resuscitation and Levophed initiated with improvement in BP now off Levaphed. Echo 06/2016 which showed LVH, mildly reduced EF at 45-50%, regional wma, TR, Grade I diastolic dysfunction. Troponin detectable at 0.027, EKG with ST, no acute ST changes to signify ischemia, felt was demand ischemia Pulmonary: Patient's continues without need of oxygen at this time GI: Patient with EtOH abuse, cirrhosis of the liver with Grade I esophageal varices noted on prior EGD, elevated liver enzymes, pancreatitis and GIB her hemoglobin has been decreasing recently now 7.5; will consult gastro. Appreciate input. S/P EGD w/ dilation of stenosis, banding of large varices. HGB this AM stable, brown stool this AM. Patient on a soft diet. IV Octreotide for 48 hours (completed) IV PPI for 48 hours (completed) Then Protonix (pantoprazole) 40 mg PO BID for 1 month then once daily. Sucralfate suspension 1 gram PO QID for 1 week. Repeat upper endoscopy in 8 weeks for retreatment Elevated LFTs - most likely EtOH hepatitis vs steatosis, MDF < 32, did not initiate treatment for EtOH hepatitis. Pancreatitis - elevated lipase, fat stranding noted on CT. pt is tolerant of advancing diet GIB - patient with bloody mucoid BM in ER. none additional Cirrhosis -noted GERD - Pepcid metabolic acidosis, multifactorial to include TYRONE, elevated lactate, possible ingestion and EtOH intoxication with alcohol ketosis. Alcoholic ketoacidosis: Improving Lactic acidosis: improving Hypokalemia replete Acute Kidney Injury: Improving Heme - As noted above. Hemoglobin has remained stable. will monitor. ID - afebrile, antibiotics are stopped Endocrine - elevated blood glucose, patient with no documented history of DM -Insulin management by pharmacy Psych -eval does not feel pt is a risk to herself and have lifted -Suicide precautions, will be lifted pt no longer voices desire for self harm at time of discharge attending will need to sign page 7 lifting 302 petition Hypotension: BP has been better controlled. (2) Pancytopenia: continues with improving pancytopenia, no anaplasmosis inclusions are seen and peripheral smear review Likely consistent with cirrhosis and sequestration Spent 35 minutes in management of patient. Dispo: Plan was to discharge her on 07/04. But she then had anemia, and had EGD scheduled for 07/05. Found varices and required IV protonix and Sandosattin for 48 hours. Plan is now to discharge her on 07/08 given that home health will see her on 07/09 at home. Patient is refusing rehab. But is also refusing to participate in any activities here. This may make discharge difficult. Subjective Patient reports being nauseaous today. she also fees fatigued and is concerned to go home today. Patient denies any chest pain, vomiting, diarrhea. D/W case management, home [facility] will be seeing her Tuesday morning. Plan is to keep her here until Tuesday. Review of Systems Review of Systems: All systems reviewed & are unremarkable except as noted in HPI & below Physical Exam 2 Physical Exam: The patient appeared well nourished and normally developed. Patient continues to look less pale today Vital signs as documented. Head exam is unremarkable. normocephalic, atraumatic Neck is without jugular venous distension, thyromegaly, or lymphademopathy Lungs are clear to auscultation and percussion. Cardiac exam reveals Rhythm is regular. First and second heart sounds normal. Abdominal exam reveals normal bowel sounds, no masses, no organomegaly Extremities are nonedematous and both pedal pulses are present Neurologic exam is A&Ox3, no focal deficits, strength is equal bilateral Psychologically seems depressed Skin is warm Dry without bruises or lesions Results & Data Vital Signs (Past 12 Hours) Vital Signs Temp Pulse Pulse Pulse Resp BP BP 07/07/18 20:35 37.2 C 82 20 145/91 H 07/07/18 17:00 99 H 07/07/18 15:32 36.9 C 84 18 110/72 07/07/18 14:05 37.3 C 78 88 18 128/69 128/78 07/07/18 11:17 37.3 C 78 18 128/69 Pulse Ox 07/07/18 20:35 95 07/07/18 17:00 07/07/18 15:32 93 07/07/18 14:05 95 07/07/18 11:17 95
[2018-07-08] MEDS: OCTREOTIDE ACETATE 500 MCG in 0.9 % SODIUM CHLORIDE 100 ML IV SCH ×2 (01:52→11:02)
[2018-07-08] MEDS: TAPENTADOL HCL 50 MG TAB PO PRN ×3 (05:35→18:43)
[2018-07-08] MEDS: ONDANSETRON INJ 2 MG/ML 2 ML VIAL IV SCH ×2 (05:36→11:29)
[2018-07-08] MEDS: INSULIN ASPART 100 UNITS/ML 3 ML PEN SC SCH ×4 (08:07→20:55)
[2018-07-08] MEDS: SUCRALFATE 1 GM/10 ML UDC PO SCH ×4 (08:08→20:12)
[2018-07-08] MEDS: THIAMINE HCL 100 MG TAB PO SCH (08:09)
[2018-07-08] MEDS: PANCREAZE (LIPASE 10,500U) CAP PO SCH ×3 (08:09→17:08)
[2018-07-08] MEDS: PANTOprazole 40 MG in SYRINGE 0 ML IV SCH (08:11)
[2018-07-08 16:20] LABS: Hematocrit (blood only) 25.8 % (37-47); Hemoglobin 8.6 g/dL (12.0-16.0)
[2018-07-08] MEDS: ONDANSETRON 4 MG TAB PO PRN (17:08)
[2018-07-08] MEDS: PANTOprazole 40 MG TAB PO SCH (20:11)
[2018-07-08] MEDS: MAGNESIUM OXIDE 400 MG TAB PO SCH (20:12)
[2018-07-08] MEDS: QUETIAPINE FUMARATE 25 MG TABLET PO SCH (20:55)
--- NOTE | 2018-07-08 23:55 | Hospitalist Progress Note ---
Date of Service July 08, 2018 Assessment & Plan (1) Metabolic acidosis: toxic encephalopathy Neuro: suspect polysubstance toxic encephalopathy this is resolved Was getting tremulous on 06/26 started on Librium dose reduced on 06/28 tremulousness is controlled and there is no tachycardia or hypertension Tapering Librium once again on 07/01, discontinued 07/02 initiating seroquel hs for sleep. Cardiovascular: Patient initially tachycardic, hypotensive, s/p 4L fluid resuscitation and Levophed initiated with improvement in BP now off Levaphed. Echo 06/2016 which showed LVH, mildly reduced EF at 45-50%, regional wma, TR, Grade I diastolic dysfunction. Troponin detectable at 0.027, EKG with ST, no acute ST changes to signify ischemia, felt was demand ischemia Pulmonary: Patient's continues without need of oxygen at this time GI: Patient with EtOH abuse, cirrhosis of the liver with Grade I esophageal varices noted on prior EGD, elevated liver enzymes, pancreatitis and GIB her hemoglobin has been decreasing recently now 7.5; will consult gastro. Appreciate input. S/P EGD w/ dilation of stenosis, banding of large varices. HGB this AM stable, brown stool this AM. Patient on a soft diet. IV Octreotide for 48 hours (completed) IV PPI for 48 hours (completed) Then Protonix (pantoprazole) 40 mg PO BID for 1 month then once daily. Sucralfate suspension 1 gram PO QID for 1 week. Repeat upper endoscopy in 8 weeks for retreatment Elevated LFTs - most likely EtOH hepatitis vs steatosis, MDF < 32, did not initiate treatment for EtOH hepatitis. Pancreatitis - elevated lipase, fat stranding noted on CT. pt is tolerant of advancing diet GIB - patient with bloody mucoid BM in ER. none additional Cirrhosis -noted GERD - Pepcid metabolic acidosis, multifactorial to include TYRONE, elevated lactate, possible ingestion and EtOH intoxication with alcohol ketosis. Alcoholic ketoacidosis: Improving Lactic acidosis: improving Hypokalemia replete Acute Kidney Injury: Improving Heme - As noted above. Hemoglobin has remained stable. will monitor. ID - afebrile, antibiotics are stopped Endocrine - elevated blood glucose, patient with no documented history of DM -Insulin management by pharmacy Psych -eval does not feel pt is a risk to herself and have lifted -Suicide precautions, will be lifted pt no longer voices desire for self harm at time of discharge attending will need to sign page 7 lifting 302 petition Hypotension: BP has been better controlled (2) Pancytopenia: continues with improving pancytopenia, no anaplasmosis inclusions are seen and peripheral smear review Likely consistent with cirrhosis and sequestration Spent 35 minutes in management of patient. Dispo: Plan was to discharge her on 07/04. But she then had anemia, and had EGD scheduled for 07/05. Found varices and required IV protonix and Sandosattin for 48 hours. Plan is now to discharge her on 07/08 given that home health will see her on 07/09 at home. However on 07/08 patient states that she is weak and is having nausea and vomiting. Patient is refusing rehab. But is also refusing to participate in any activities here. This may make discharge difficult. Will try to discharge in AM. Spent 25 minutes in management of patient. Subjective Patient overnight and this AM has been stating to nursing staff that she is having nausea and vomiting. Nursing staff states that she had not shown any of the vomitus today. Nursing staff states that patient is walking to the bathroom vomiting in toilet and flushing, however they notice that she only lays in bed and have not noticed the IV pole has not moved. In the afternoon, she showed a bag which contained yellow fluid which looked like her ice tea. She states she does not want to get out of bed to chair. SHe states she is just tired. Review of Systems Review of Systems: All systems reviewed & are unremarkable except as noted in HPI & below Physical Exam Physical Exam: The patient appeared well nourished and normally developed. Patient continues to look less pale today Vital signs as documented. Head exam is unremarkable. normocephalic, atraumatic Neck is without jugular venous distension, thyromegaly, or lymphademopathy Lungs are clear to auscultation and percussion. Cardiac exam reveals Rhythm is regular. First and second heart sounds normal. Abdominal exam reveals normal bowel sounds, no masses, no organomegaly Extremities are nonedematous and both pedal pulses are present Neurologic exam is A&Ox3, no focal deficits, strength is equal bilateral Psychologically seems depressed Skin is warm Dry without bruises or lesions Results & Data Vital Signs (Past 12 Hours) Vital Signs Temp Pulse Resp BP BP Pulse Ox 07/08/18 19:55 36.9 C 73 20 136/86 95 07/08/18 15:16 36.4 C L 102 H 22 80/52 L 90
[2018-07-09] MEDS: ONDANSETRON 4 MG TAB PO PRN ×3 (02:36→17:25)
[2018-07-09] MEDS: TAPENTADOL HCL 50 MG TAB PO PRN ×3 (07:53→23:42)
[2018-07-09] MEDS: INSULIN ASPART 100 UNITS/ML 3 ML PEN SC SCH ×4 (07:54→21:09)
[2018-07-09] MEDS: FERROUS SULFATE 325 MG TAB PO SCH ×3 (07:54→17:13)
[2018-07-09] MEDS: PANCREAZE (LIPASE 10,500U) CAP PO SCH ×3 (07:55→17:25)
[2018-07-09] MEDS: SUCRALFATE 1 GM/10 ML UDC PO SCH ×4 (07:55→21:09)
[2018-07-09] MEDS: PANTOprazole 40 MG TAB PO SCH ×2 (07:55→21:11)
[2018-07-09] MEDS: THIAMINE HCL 100 MG TAB PO SCH (07:55)
--- NOTE | 2018-07-09 12:18 | Hospitalist Progress Note ---
Date of Service July 09, 2018 Assessment & Plan (1) Metabolic acidosis: toxic encephalopathy Neuro: suspect polysubstance toxic encephalopathy this is resolved Was getting tremulous on 06/26 started on Librium dose reduced on 06/28 tremulousness is controlled and there is no tachycardia or hypertension Tapering Librium once again on 07/01, discontinued 07/02 initiating seroquel hs for sleep. This appears to be controlled since this change took place. Cardiovascular: Patient initially tachycardic, hypotensive, s/p 4L fluid resuscitation and Levophed initiated with improvement in BP now off Levaphed. Echo 06/2016 which showed LVH, mildly reduced EF at 45-50%, regional wma, TR, Grade I diastolic dysfunction. Troponin detectable at 0.027, EKG with ST, no acute ST changes to signify ischemia, felt was demand ischemia Pulmonary: Patient's continues without need of oxygen at this time GI: Patient with EtOH abuse, cirrhosis of the liver with Grade I esophageal varices noted on prior EGD, elevated liver enzymes, pancreatitis and GIB her hemoglobin has been decreasing recently now 7.5; will consult gastro. Appreciate input. S/P EGD w/ dilation of stenosis, banding of large varices. HGB this AM stable, brown stool this AM. Patient on a soft diet. IV Octreotide for 48 hours (completed on 10/08) IV PPI for 48 hours (completed on 10/08) Then Protonix (pantoprazole) 40 mg PO BID for 1 month then once daily. Sucralfate suspension 1 gram PO QID for 1 week. Repeat upper endoscopy in 8 weeks for retreatment Intractable nausea and vomiting: will place on reglan and zofran. will monitor. Vomited Fluid is dark. however patient on ferrous sulfate. Will recommend rechecking hemoglobin, Elevated LFTs - most likely EtOH hepatitis vs steatosis, MDF < 32, did not initiate treatment for EtOH hepatitis. Pancreatitis - elevated lipase, fat stranding noted on CT. pt is tolerant of advancing diet GIB - Iron def. Anemia: On Iron. patient with bloody mucoid BM in ER. none additional Cirrhosis -noted GERD - Pepcid metabolic acidosis, multifactorial to include TYRONE, elevated lactate, possible ingestion and EtOH intoxication with alcohol ketosis. Alcoholic ketoacidosis: Improving Lactic acidosis: improving Hypokalemia replete Acute Kidney Injury: Improving Heme - As noted above. Hemoglobin has remained stable. will monitor. Placed on ferrous sulfate on 07/08. ID - afebrile, antibiotics are stopped Endocrine - elevated blood glucose, patient with no documented history of DM -Insulin management by pharmacy Psych -eval does not feel pt is a risk to herself and have lifted -Suicide precautions, will be lifted pt no longer voices desire for self harm 302 petition has been lifted. Hypotension: BP has been better controlled (2) Pancytopenia: continues with improving pancytopenia, no anaplasmosis inclusions are seen and peripheral smear review Likely consistent with cirrhosis and sequestration Dispo: Plan was to discharge her on 07/04. But she then had anemia, and had EGD scheduled for 07/05. Found varices and required IV protonix and Sandosattin for 48 hours. Plan was to d/c prior to Home health seeing patient in her home on 07/09. However she continues to have intractable nausea and vomiting, started reglan. Patient is refusing rehab. But is also refusing to participate in any activities here. This may make discharge difficult. Will try to discharge in AM. Spent 25 minutes in management of patient. Subjective 53 yo female reports she continues to have nausea. She cannot take a bite of food without throwing it up. She states she felt more nausea once the IJ access was removed. Review of Systems Constitutional: + malaise and + weakness; no sweats Eyes: no blind spots Ear, Nose, Mouth, Throat: no tinnitus and no dizziness Respiratory: no dyspnea Cardiovascular: no chest pain Integumentary: no rash and no non-healing lesions Neurologic: no paralysis and no radiating pain Psychiatric: no change in appetite and no change in sex drive Endocrine: no fatigue Hematologic / Lymphatic: no easy bleeding Allergy / Immunological: no GI upset with certain foods Physical Exam Physical Exam: The patient appeared well nourished and normally developed. Patient continues to look less pale today Vital signs as documented. Head exam is unremarkable. normocephalic, atraumatic Neck is without jugular venous distension, thyromegaly, or lymphadenopathy Lungs are clear to auscultation and percussion. Cardiac exam reveals Rhythm is regular. First and second heart sounds normal. Abdominal exam reveals normal bowel sounds, no masses, no organomegaly Extremities are nonedematous and both pedal pulses are present Neurologic exam is A&Ox3, no focal deficits, strength is equal bilateral Psychologically seems depressed Skin is warm Dry without bruises or lesions Results & Data Vital Signs (Past 12 Hours) Vital Signs Temp Pulse Pulse Resp BP BP Pulse Ox 07/09/18 12:05 159/89 H 07/09/18 11:48 72 159/95 H 07/09/18 07:53 37.0 C 80 18 161/89 H 96
[2018-07-09] MEDS: METOCLOPRAMIDE HCL 5 MG/5 ML UDP PO PRN (15:01)
[2018-07-09] MEDS: QUETIAPINE FUMARATE 25 MG TABLET PO SCH (21:11)
[2018-07-09] MEDS: MAGNESIUM OXIDE 400 MG TAB PO SCH (21:11)
[2018-07-10] MEDS: METOCLOPRAMIDE HCL 5 MG/5 ML UDP PO PRN ×2 (00:02→08:14)
[2018-07-10] MEDS: FERROUS SULFATE 325 MG TAB PO SCH (08:12)
[2018-07-10] MEDS: PANCREAZE (LIPASE 10,500U) CAP PO SCH ×3 (08:12→16:21)
[2018-07-10] MEDS: SUCRALFATE 1 GM/10 ML UDC PO SCH ×4 (08:12→20:39)
[2018-07-10] MEDS: THIAMINE HCL 100 MG TAB PO SCH (08:13)
[2018-07-10] MEDS: PANTOprazole 40 MG TAB PO SCH ×2 (08:13→20:39)
[2018-07-10] MEDS: TAPENTADOL HCL 50 MG TAB PO PRN ×2 (08:13→14:17)
[2018-07-10] MEDS: INSULIN ASPART 100 UNITS/ML 3 ML PEN SC SCH ×4 (08:16→20:19)
[2018-07-10] MEDS ORDERED: METOCLOPRAMIDE HCL 5 MG TABLET PO PRN (11:30)
--- NOTE | 2018-07-10 11:30 | Hospitalist Progress Note ---
Date of Service July 10, 2018 Assessment & Plan (1) Nausea & vomiting: Possibly due to gastroparesis vs. pain from dilation from her stricture. - Improved with Reglan - Will make standing before meals. - Stopped iron tablet and magnesium as both can result in GI symptoms. - Will get upper GI with small bowel follow through to assess G-J anastamosis; per notes was dilated during EGD on 07/05 (2) Alcoholic cirrhosis: With 2 large varices on EGD on 07/05/2018 which were banded. Was pancytopenic on admission; gradually improving off any alcohol. - Will need repeat EGD in 8 weeks (3) Pancreatitis: Lipase up to 1750 on admission on 06/23. Lower than priors in prior months. No further after that. - Will get repeat (4) Metabolic acidosis: Initially with metabolic acidosis and hypotension. Improved with IVFs and off alcohol. - All resolved off alcohol (5) DVT prophylaxis: SCDs - Low DVT risk per admission calculator Subjective With nausea and abdominal pain. Review of Systems Review of Systems: All systems reviewed & are unremarkable except as noted in HPI & below Physical Exam Constitutional: WD/WN, vitals as above + acute distress and + frail appearing Eyes: EOM intact bilaterally; no conjunctival abnormality ENMT: external ear and nose normal, oropharynx normal Neck: trachea midline, no thyromegaly normal visual inspection Respiratory: normal respiratory effort, lungs clear to auscultation no respiratory distress Cardiovascular: RRR, no murmur, no edema Gastrointestinal (Abdomen): Inspection/Auscultation: abdomen normal to inspection; abdomen not distended Musculoskeletal: no cyanosis or clubbing, extremities motor strength 5/5 Skin: no rashes, warm and dry Neurologic: moves all extremities and awake Psychiatric: Orientation: alert, oriented to person and cooperative Results & Data Vital Signs (Past 12 Hours) Vital Signs Temp Pulse Resp BP Pulse Ox 07/10/18 07:58 36.7 C 62 16 115/68 95 07/10/18 00:09 37 C 75 16 124/78 93
[2018-07-10] MEDS: METOCLOPRAMIDE HCL 5 MG TABLET PO SCH ×2 (13:06→16:21)
[2018-07-10] MEDS: LOPERAMIDE HCL 2 MG CAP PO PRN ×2 (16:24→23:35)
[2018-07-10] MEDS: QUETIAPINE FUMARATE 25 MG TABLET PO SCH (20:40)
[2018-07-11 07:41] LABS: INR 1.1 (0.9-1.1); Prothrombin Time 11.1 Seconds (9.0-12.0)
[2018-07-11 07:42] LABS: Basophils # (auto) 0.02 K/uL (0-0.2); Basophils % (auto) 1.2 %; Eosinophils # (auto) 0.04 K/uL (0-0.5); Eosinophils % (auto) 2.3 %; Hematocrit (blood only) 26.5 % (37-47); Hemoglobin 8.6 g/dL (12.0-16.0); Immature Granulocytes # (auto) 0.01 K/uL (0.00-0.02); Immature Granulocytes % (auto) 0.6 %; Lymphocytes # (auto) 0.44 K/uL (1.2-3.4); Lymphocytes % (auto) 25.6 %; Mean Corpuscular Hgb Conc 32.5 g/dL (32-36); Mean Corpuscular Volume 83.1 fL (80-100); Mean Platelet Volume 9.7 fL (7.4-10.4); Monocytes # (auto) 0.18 K/uL (0.11-0.59); Monocytes % (auto) 10.5 %; Neutrophils # (auto) 1.03 K/uL (1.4-6.5); Neutrophils % (auto) 59.8 %; Platelet Count 111 K/uL (130-400); RDW Standard Deviation 58.4 fL (36.4-46.3); Red Blood Count 3.19 M/uL (4.2-5.4); White Blood Count 1.72 K/uL (4.8-10.8)
[2018-07-11] MEDS: INSULIN ASPART 100 UNITS/ML 3 ML PEN SC SCH ×2 (07:42→13:04)
[2018-07-11] MEDS: THIAMINE HCL 100 MG TAB PO SCH (08:00)
[2018-07-11] MEDS: PANTOprazole 40 MG TAB PO SCH (08:00)
[2018-07-11] MEDS: SUCRALFATE 1 GM/10 ML UDC PO SCH ×2 (08:00→13:07)
[2018-07-11] MEDS: PANCREAZE (LIPASE 10,500U) CAP PO SCH ×2 (08:00→13:07)
[2018-07-11] MEDS: METOCLOPRAMIDE HCL 5 MG TABLET PO SCH ×3 (08:00→17:28)
[2018-07-11 08:01] LABS: Albumin Level 2.8 gm/dl (3.4-5.0); BUN Creatinine Ratio 22.3 (10-20); Calcium 8.3 mg/dl (8.5-10.1); Creatinine Clr Calc Pharmacy 115.7 ml/min; Est GFR (African American) 127.2; Est GFR (Non-African American) 109.7; Magnesium 1.8 mg/dl (1.8-2.4); Potassium 3.3 mmol/L (3.5-5.1)
[2018-07-11 08:04] LABS: Albumin Globulin Ratio 0.8 (0.9-2); Bilirubin,Total 0.6 mg/dl (0.2-1); Globulin 3.4 gm/dl (2.5-4.0); Phosphorus 3.8 mg/dl (2.5-4.9); Total Protein 6.2 gm/dl (6.4-8.2)
--- NOTE | 2018-07-11 11:12 | Fluoroscopy Report ---
FL upper GI series wo air CLINICAL HISTORY: Nausea and vomiting. History of prior gastrojejunostomy. COMPARISON STUDY: None FLUOROSCOPY TIME: 1.5 minutes. NUMBER OF FLUOROSCOPIC IMAGES: 18 FINDINGS: The patient swallowed barium. There are postsurgical changes are prior gastric bypass. The gastrojejunostomy anastomosis measures 4.7 mm. The visualized portions of the esophagus revealed no m asses. IMPRESSION: 1. Postsurgical changes are prior gastric bypass with a gastrojejunostomy 2. The gastrojejunostomy anastomosis measures 4.7 mm. 3. No masses identified Electronically signed by: Yahir Valencia M.D. 07/11/2018 11:10 AM
--- NOTE | 2018-07-11 13:05 | Hospitalist Progress Note ---
Date of Service July 11, 2018 Assessment & Plan (1) Nausea & vomiting: Possibly due to gastroparesis, pain from dilation from her stricture, or stricture itself. - Improved with Reglan - Made standing before meals. - Stopped iron tablet and magnesium as both can result in GI symptoms. - Upper GI with small bowel follow through to assess G-J anastamosis; per notes was dilated during EGD on 07/05 - Result shows 4.7mm anastomosis - Will discuss with GI whether this is acceptable or represents further stricture issues. (2) Alcoholic cirrhosis: With 2 large varices on EGD on 07/05/2018 which were banded. Was pancytopenic on admission; gradually improving off any alcohol. - Will need repeat EGD in 8 weeks (3) Pancreatitis: Lipase up to 1750 on admission on 06/23. Lower than priors in prior months. - Repeat on 07/11 was 80. (4) Metabolic acidosis: Initially with metabolic acidosis and hypotension. Improved with IVFs and off alcohol. - All resolved off alcohol (5) DVT prophylaxis: SCDs - Low DVT risk per admission calculator Subjective Reports some diarrhea, though none that has been seen by the RN. No major concerns otherwise. Review of Systems Review of Systems: All systems reviewed & are unremarkable except as noted in HPI & below Physical Exam Constitutional: WD/WN, vitals as above + acute distress and + frail appearing Eyes: EOM intact bilaterally; no conjunctival abnormality ENMT: external ear and nose normal, oropharynx normal Neck: trachea midline, no thyromegaly normal visual inspection Respiratory: normal respiratory effort, lungs clear to auscultation no respiratory distress Cardiovascular: RRR, no murmur, no edema Gastrointestinal (Abdomen): Inspection/Auscultation: abdomen normal to inspection; abdomen not distended Musculoskeletal: no cyanosis or clubbing, extremities motor strength 5/5 Skin: no rashes, warm and dry Neurologic: moves all extremities and awake Psychiatric: Orientation: alert, oriented to person and cooperative Results & Data Vital Signs (Past 12 Hours) Vital Signs Temp Pulse Resp BP Pulse Ox 07/11/18 07:28 37.0 C 67 16 138/79 96 07/11/18 03:25 37 C
--- NOTE | 2018-07-11 15:53 | Discharge Summary ---
Date of Service July 11, 2018 Admission HPI Per Admitting Provider Siena Saldana is a 53-year-old female admitted medically on 06/22/18 on a 302 warrant in conjunction with an episodes of alcohol intoxication. Pt initially presented with confusion and disorientation. Police presented to patient's home and found that patient had fallen prior to their arrival as well, no specifics provided. Pt is known to our service from previous psychiatric consultations related to her alcohol abuse. Pt is seen today on our service to assess SI, here on 302 warrant with petitioning statement completed by son. Last consultation on our service (04/09/18) was for similar presenting concerns, joseline rainey was on an active 302 warrant at that time as well. Records from that consultation were reviewed prior to meeting with the patient. At time of my assessment, patient is lying in bed and appears to be in no acute distress. Patient is agreeable to participate in evaluation, and asks this provider "why do I have the sitters?" Referring to 1-1 staff. Patient does admit that she had been drinking prior to her current admission, and suffered a fall in the bathroom which she states is "my worst fear." We discussed patient's recent mood, which she states is"in pain. That is what I am feeling, that is what leads to me drinking." Patient states that her pain is predominantly in her hip, back, chest, and wrists; and has been worsening over the past 3 years. Patient states this has affected her ability to enjoy her interactions with her grandchildren, as she is limited physically. Despite these limitations, the patient states "I am not suicidal, I do not want to kill myself." Patient's explanation of the reports is, "I said that if I did not stop drinking I would end up drinking myself to ." Patient denies active suicidality and states she does not wish to end her life. She reports love for her grandchildren, and general desire to continue living as protective factors. Patient reports increased alcohol use since February 2018. Prior to that time patient describes her use as "social", which she states was characterized by weekend drinking to the point of being buzzed. For the past 4-5 months the patient has been consuming roughly 1/5 of vodka every 2 days, and admits to need for an eye yoga instructor in the morning to prevent physical symptoms upon awakening. Patient has been admitted for medical treatment multiple times as a result of her alcohol use, but denies any previous admissions for inpatient drug or alcohol rehabilitation. Patient refuses this recommendation at this time stating, "my grandchildren will not remember me if I go to rehab." Patient is not receptive to the fact that her current behavior has been problematic, and is only willing to consider outpatient treatment options at this time. Patient verbalized vague willingness to attend AA meetings, and is willing for referrals for outpatient drug and alcohol treatment as able. Patient does report many barriers to this process, as she states transportation is a concernwhich is why she was unable to follow-up with previous referrals made to [facility], despite the office being in her town of residence. Patient does report "anxiety" and is interested in medications to assist with this. Reviewed recommendations with patient that she maintain sobriety, as abstaining from alcohol will likely contribute to significant improvements in her mood and anxiety. Symptoms of anxiety are somewhat nonspecific, and she reports improvement with behavioral means such as deep breathing or reaching out to her boyfriend for support. Pt denies SI, HI, SIB, A/V hallucinations, paranoia, chris/hypomania, other symptoms more suggestive of a bipolar presentation, OCD, PTSD, eating disorder, and other specific psychiatric symptoms. Principal Diagnosis Alcohol abuse leading to acidosis Alcoholic cirrhosis causing esophageal varices Discharge Exam Constitutional WD/WN, vitals as above + acute distress and + frail appearing Eyes EOM intact bilaterally; no conjunctival abnormality ENMT external ear and nose normal, oropharynx normal Neck trachea midline, no thyromegaly normal visual inspection Respiratory normal respiratory effort, lungs clear to auscultation no respiratory distress Cardiovascular RRR, no murmur, no edema Gastrointestinal (Abdomen) Inspection/Auscultation: abdomen normal to inspection; abdomen not distended Musculoskeletal no cyanosis or clubbing, extremities motor strength 5/5 Skin no rashes, warm and dry Neurologic moves all extremities and awake Psychiatric Orientation: alert, oriented to person and cooperative Discharge Data Allergies Allergy/AdvReac Type Severity Reaction Status Date / Time clarithromycin Allergy Intermediate HIVES Verified 08/03/17 04:46 aspirin Allergy Mild Verified 08/03/17 04:46 tramadol Allergy Mild Verified 08/03/17 04:46 oxaprozin Allergy Unknown Verified 08/03/17 04:46 Consultations 06/22/18 22:08 ED Decision to Admit Stat 06/23/18 00:42 Consult Case Management - Discharge Planning Routine Consult Acid Condenser Routine 06/23/18 03:43 Consult Gastroenterology Routine 06/25/18 10:41 Consult Psychiatry Routine Procedures Performed Operation Date: 07/05/18 08:30 Actual Procedures p EGD Banding of Varices - Nia Correa MD Ordered Studies 06/22/18 22:03 CT abd pelvis wo con Urgent 06/22/18 22:34 CT head/brain wo con Urgent 06/23/18 11:31 US venous doppler LE BI Urgent 06/24/18 08:47 CT head/brain wo con Urgent 07/11/18 10:30 FL upper GI series wo air Routine Hospital Course (1) Nausea & vomiting: Possibly due to gastroparesis, pain from dilation from her stricture, or stricture itself. - Improved with Reglan - Made standing before meals. - Stopped iron tablet and magnesium as both can result in GI symptoms. - Upper GI with small bowel follow through to assess G-J anastamosis; per notes was dilated during EGD on 07/05 - Result shows 4.7mm anastomosis - Discussed with GI - This is still narrow and will require serial dilations in follow up. - Discussed with the patient the need to stay on soft diet. (2) Alcoholic cirrhosis: With 2 large varices on EGD on 07/05/2018 which were banded. Was pancytopenic on admission; gradually improving off any alcohol. - Will need repeat EGD in 8 weeks (3) Pancreatitis: Lipase up to 1750 on admission on 06/23. Lower than priors in prior months. - Repeat on 07/11 was 80. (4) Metabolic acidosis: Initially with metabolic acidosis and hypotension. Improved with IVFs and off alcohol. - All resolved off alcohol (5) DVT prophylaxis: SCDs - Low DVT risk per admission calculator Total Time Total Time Spent Total Time Spent (In Minutes): 35 Total Time Includes: Examination of the Patient, Discharge Planning and Medication Reconciliation Discharge Plan Discharge Items Patient Disposition: Home - Home Health Services Reason For Visit: ACIDEMIA, ETOH Discharge Diagnosis: Alcohol abuse Discharge Goals: Decrease discomfort Activity: Resume your previous activity Non-emergency contact: Primary Care Provider Call non-emergency contact if: you have any medication questions Follow-up/Referrals: Nia Correa MD [Hospitalist] - (Please see Dr. Correa in 4 weeks for GI follow up.) Pita Borges MD [Primary Care Provider] - 07/14/18 12:45 pm (Please, follow up at the [facility] in [place] with Dr. Pita Ge on TuesdayJuly 14 at 12:45 pm. *If you need to change or cancel this appointment, call the office at [phone].) Diet: Carb Consistent or DM2 Diet Texture: Mechanical soft (ground) Addtl Provider Instructions: You were admitted due to complications from alcohol abuse. Recommended inpatient physical therapy however, you choose home health physical therapy. Recommend to continue to withhold any further alcohol intake. Please only eat soft food items. You will need another dilation of your stomach in 4-8 weeks to help continue eating food. Until that time, please eat soft foods and beverages such as Ensure to stay healthy. Prescriptions: New quetiapine 25 mg Tablet 25 mg PO HS Qty: 30 RF: 0 loperamide 2 mg Capsule 2 mg PO Q6H PRN (Reason: constipation) Qty: 60 RF: 0 thiamine HCl (vitamin B1) [Vitamin B-1] 100 mg Tablet 100 mg PO QAM Qty: 30 RF: 0 magnesium oxide 400 mg (241.3 mg magnesium) Tablet 800 mg PO HS Qty: 15 RF: 0 pantoprazole 40 mg Tablet,Delayed Release (Dr/Ec) 40 mg PO BID Qty: 60 RF: 0 Creon 36,000-114,000- 180,000 unit Capsule,Delayed Release(Dr/Ec) 1 cap PO TIDM Qty: 90 RF: 0 sucralfate [Carafate] 100 mg/mL suspension 10 ml PO QID Qty: 420 RF: 0 metoclopramide HCl 5 mg Tablet 5 mg PO Q6H PRN (Reason: nausea and vomiting) Qty: 60 RF: 0 tramadol 50 mg tablet 50 mg PO Q6H PRN (Reason: pain) Qty: 14 RF: 0 Stand-Alone Forms: [facility] Discharge Orders: Discharge Order (Routine); Ordered 07/11/18 Ordered By: José Damon Admission Data Admit Date/Time: 06/22/18 23:07 Attending Provider: José Damon Admit Provider: Tara Vera Primary Care Provider: Pita Borges Other Providers: Khoi Chi ; Tara Vera ; Clint Tao ; Artemio Aranda ; Allie Stovall ; Telma Stevens ; Iraj Cummins Service: Medical Other Interventions: Discharge Summary Assessment (RN) Last Done: 07/11/18 15:20
== END 2018-07-11 18:06 | disposition home health service (06) | DRG 917 ==
LOC: ED 18:54 → SUATTDRO 23:07 → 1E 23:07 → 2W 06-26 13:19
DX: R00.0 Tachycardia, unspecified; I95.9 Hypotension, unspecified; E87.6 Hypokalemia; Z91.5 Personal history of self-harm; R73.9 Hyperglycemia, unspecified; R19.7 Diarrhea, unspecified; E83.39 Other disorders of phosphorus metabolism; K70.10 Alcoholic hepatitis without ascites; Z98.84 Bariatric surgery status; K91.89 Other postprocedural complications and disorders of digestive system; R51 Headache; F10.229 Alcohol dependence with intoxication, unspecified; R45.851 Suicidal ideations; K92.2 Gastrointestinal hemorrhage, unspecified; R45.1 Restlessness and agitation; Z91.19 Patient's noncompliance with other medical treatment and regimen; R53.83 Other fatigue; N17.9 Acute kidney failure, unspecified; E46 Unspecified protein-calorie malnutrition; K70.30 Alcoholic cirrhosis of liver without ascites; E87.2 Acidosis; T51.0X2A Toxic effect of ethanol, intentional self-harm, initial encounter; D50.9 Iron deficiency anemia, unspecified; G92 Toxic encephalopathy; E83.42 Hypomagnesemia; I10 Essential (primary) hypertension; I85.01 Esophageal varices with bleeding

== ENCOUNTER 2018-09-21 16:06 | Inpatient (IN) ==
[2018-09-21] MEDS ORDERED: THIAMINE HCL 100 MG in SYRINGE 9 ML IV STA (16:19)
[2018-09-21] MEDS ORDERED: SODIUM CHLORIDE 0.9% 1000ML 1,000 ML IV ONE (16:19)
[2018-09-21] MEDS ORDERED: MULTI-VITAMIN INFUSION 10 ML, THIAMINE HCL 100 MG, FOLIC ACID 1 MG in SODIUM CHLORIDE 0... IV STA (16:19)
[2018-09-21] MEDS ORDERED: ONDANSETRON INJ 2 MG/ML 2 ML VIAL ONE (17:03)
[2018-09-21 17:20] LABS: Base Excess VBG -20.6 mEq/L; Oxygen Saturation VBG 68.1 %; pH VBG 7.09 (7.36-7.41)
[2018-09-21] MEDS ORDERED: ONDANSETRON INJ 2 MG/ML 2 ML VIAL IV STA (17:22)
[2018-09-21] MEDS ORDERED: FAMOTIDINE 20MG IV PUSH 20 MG/5 ML SYR IV STA (17:32)
[2018-09-21 17:33] LABS: INR 1.1 (0.9-1.1); Partial Thromboplastin Time 26.2 Seconds (21.0-31.0); Prothrombin Time 10.9 Seconds (9.0-12.0)
[2018-09-21] MEDS ORDERED: D5W AND NSS 1,000 ML IV STA (17:33)
[2018-09-21] MEDS ORDERED: POTASSIUM CHLORIDE / WTR 10 MEQ/100 ML PLCT IV STA (17:37)
[2018-09-21] MEDS ORDERED: MAGNESIUM SULFATE / D5W 1 GM/100 ML BAG IV STA (17:38)
[2018-09-21 17:46] LABS: iSTAT Creatinine 1.9 mg/dl (0.6-1.3); iSTAT Hemoglobin 11.9 g/dl (12.0-16.0); iSTAT Ionized Calcium 0.97 mmol/l (1.12-1.32); iSTAT Potassium 2.9 mEq/L (3.3-5.0)
[2018-09-21 17:46] LABS: Bilirubin Direct 1.5 mg/dl (0-0.2); Magnesium 2.6 mg/dl (1.8-2.4); Phosphorus 5.2 mg/dl (2.5-4.9); Troponin I < 0.015 ng/ml (0-0.045)
[2018-09-21 17:48] LABS: Alanine Aminotransferase 74 U/L (12-78); Albumin Level 4.4 gm/dl (3.4-5.0); Aspartate Aminotransferase 190 U/L (15-37); BUN Creatinine Ratio 20.6 (10-20); Blood Urea Nitrogen 34 mg/dl (7-18); Calcium 7.9 mg/dl (8.5-10.1); Carbon Dioxide 8 mmol/L (21-32); Chloride 104 mmol/L (98-107); Est GFR (African American) 39.8; Est GFR (Non-African American) 34.3; Glucose 70 mg/dl (70-99); Hematocrit (blood only) 34.6 % (37-47); Mean Corpuscular Hgb Conc 28.9 g/dL (32-36); Mean Corpuscular Volume 77.9 fL (80-100); Mean Platelet Volume 9.6 fL (7.4-10.4); Nucleated RBC # (auto) 0.05 K/uL (0-0); Nucleated RBC % (auto) 0.7 %; Platelet Count 106 K/uL (130-400); Potassium 2.9 mmol/L (3.5-5.1); RDW Coefficient of Variation 22.3 % (11.5-14.5); RDW Standard Deviation 63.5 fL (36.4-46.3); Red Blood Count 4.44 M/uL (4.2-5.4); Sodium 143 mmol/L (136-145); White Blood Count 6.67 K/uL (4.8-10.8)
[2018-09-21 17:51] LABS: Anisocytosis Present; Basophils # (auto) 0.02 K/uL (0-0.2); Basophils % (auto) 0.3 %; Echinocytes 1+; Howell-Jolly Bodies Occasional; Hypochromasia Present; Immature Granulocytes # (auto) 0.02 K/uL (0.00-0.02); Immature Granulocytes % (auto) 0.3 %; Lymphocytes % (auto) 4.5 %; Monocytes # (auto) 0.36 K/uL (0.11-0.59); Monocytes % (auto) 5.4 %; Neutrophils # (auto) 5.97 K/uL (1.4-6.5); Neutrophils % (auto) 89.5 %
--- NOTE | 2018-09-21 17:52 | CT Scan Report ---
CT SCAN OF THE BRAIN WITHOUT IV CONTRAST CLINICAL HISTORY: Fall. COMPARISON STUDY: CT of the brain dated 06/24/2018. TECHNIQUE: Unenhanced axial CT scan of the brain is performed from the vertex to the skull base. A d ose lowering technique was utilized adhering to the principles of ALARA. FINDINGS: Brain parenchyma: The brain parenchyma is normal in appearance. There is no hemorrhage, mass effect, or evidence of acute territorial ischemia by CT criteria. Sanchez-white matter differentiation is preser isacc. No extra-axial fluid collection is seen. Ventricles, sulci, cisterns: Normal in configuration. Intracranial vasculature: There is mild atherosclerotic calcification of the cavernous carotid and ve rtebral arteries. Calvarium: There is no depressed calvarial fracture. Sinuses and mastoids: The paranasal sinuses are clear. The mastoid air cells are well pneumatized. Orbits: The bony orbits are grossly intact. IMPRESSION: No acute intracranial abnormality. Electronically signed by: Herbie Reese M.D. 09/21/2018 5:50 PM
--- NOTE | 2018-09-21 17:56 | CT Scan Report ---
CERVICAL SPINE CT CT DOSE: HISTORY: Pain, fall, 48hr downtime TECHNIQUE: Multiaxial CT images of the cervical spine were performed and reformatted in the sagittal and coronal plane without the use of contrast. A dose lowering technique was utilized adhering to th e principles of ALARA. COMPARISON: Cervical spine CT 10/02/2017. FINDINGS: No acute fractures. No subluxation. Prevertebral soft tissues and the C1-C2 interval are in tact. No pneumothorax. Posterior fusion defect at C1. Exaggeration of the lordotic curvature. Mild an terior wedging at C7, unchanged. This is consistent with an old compression deformity. IMPRESSION: No change compared to the prior study. No acute fractures within the cervical spine. Electronically signed by: Brennen King M.D. 09/21/2018 5:54 PM
[2018-09-21] MEDS ORDERED: SODIUM BICARBONATE 8.4% 150 MEQ in WATER, STERILE 1,000 ML IV ONE (18:00)
[2018-09-21] MEDS ORDERED: DEXTROSE 50% 50 ML SYRINGE IV ONE (18:00)
--- NOTE | 2018-09-21 18:04 | CT Scan Report ---
CT SCAN OF THE ABDOMEN AND PELVIS WITHOUT IV CONTRAST CLINICAL HISTORY: Fall. COMPARISON STUDY: Abdominal CT dated 06/23/2018. TECHNIQUE: CT scan of the abdomen and pelvis is performed from the lung bases to the proximal femora. Images are reviewed in the axial, sagittal, and coronal planes. IV contrast was not administered for this examination as per the referring clinician. Note that the examination was performed in signific antly suboptimal fashion without oral and IV contrast in the setting of trauma. The examination is al so degraded by streak artifact from the right arm which could not be elevated above the abdomen. A do se lowering technique was utilized adhering to the principles of ALARA. CT DOSE: 1446.37 mGy.cm FINDINGS: Lung bases: The heart is normal in size and without pericardial effusion. There is bibasilar scarring /atelectasis. No airspace consolidation, pleural effusion, or pneumothorax is seen at the lung bases. There are scattered calcified granulomas. Liver: The unenhanced liver is cirrhotic in morphology. The liver demonstrates heterogeneously dimini shed attenuation consistent with severe hepatic steatosis. There is nodularity of the surface contour and hypertrophy of the left lobe and caudate. There is no intrahepatic biliary ductal dilatation. Gallbladder: Surgically absent noting clips in the gallbladder fossa. Spleen: Normal in size and attenuation. Pancreas: There is perinephric stranding and trace peripancreatic fluid. The appearance suggests panc reatitis. No peripancreatic fluid collection is identified. Adrenal glands: Nodularity of the adrenal glands is similar to previous. Kidneys: The unenhanced kidneys demonstrate mild cortical atrophy and are without hydronephrosis. The re is a 4 mm nonobstructing calculus in the lower pole of the left kidney. No right renal calculi are identified. There is no evidence of contour deforming renal mass lesion. Abdominal vasculature: The abdominal aorta is normal in course and caliber. Stomach and bowel: There is a tiny hiatal hernia. There is evidence of partial gastric resection. The re is evidence of ileocecal resection with ileocolic anastomosis. No bowel obstruction is identified. Question underdistention versus mild wall thickening of the right colon. The appendix is not identif ied and presumed surgically absent. Peritoneum: There is no intraperitoneal free air or abdominal ascites. Lymphadenopathy: None. Pelvic viscera: The bladder is grossly unremarkable. A Dial catheter is located within the vagina. T he uterus is surgically absent. No adnexal lesion is seen. Skeletal structures: The skeletal structures are osteopenic. No acute fracture is clearly identified. Chronic posttraumatic deformity and postoperative change is noted in the left hip. There is chronic posttraumatic deformity of the left pubic ring. There is a chronic nonunited right transverse process fracture of L3. There are healed bilateral rib fractures. There are mild superior endplate compressi on deformities of L1, L3, L4, and L5. These are unchanged from previous, as is chronic posttraumatic deformity of the sacrum. No lytic or blastic lesion is seen. A neurostimulator device is present with in the right ventral abdominal wall. Leads extend into the posterior soft tissues in the mid lumbar r egion. No intrathecal component of the catheter is identified. IMPRESSION: 1. Suboptimal examination without oral and IV contrast. 2. There is no evidence of solid organ injury in the abdomen or pelvis on this unenhanced examination . 3. A Dial catheter is located within the vagina. Repositioning is indicated. 4. Findings suggest acute pancreatitis. Correlation with clinical findings and serum amylase/lipase l evels is recommended. 5. There is evidence of cirrhosis and severe steatosis of the liver. 6. Left-sided nephrolithiasis. 7. Underdistention versus wall thickening is noted in the right colon. This may represent portal colo adelia. Correlate clinically for evidence of a mild colitis. 8. Numerous chronic fractures as above. No acute fracture is clearly seen. 9. Additional findings as above. Electronically signed by: Herbie Reese M.D. 09/21/2018 6:03 PM
--- NOTE | 2018-09-21 18:04 | CT Scan Report ---
CT chest wo con CT DOSE: HISTORY: Pain, fall, 48hr downtime TECHNIQUE: Multiaxial CT images of the chest were performed without contrast. A dose lowering techni que was utilized adhering to the principles of ALARA. COMPARISON: Chest CTA 04/12/2018. FINDINGS: Multiple old, healed bilateral rib fractures. No acute fractures identified within the ches t. Gas within the glenohumeral joint. There is also a catheter tip abutting the humeral head. Hepatic steatosis. Cholecystectomy. Postoperative changes within the stomach. This is better appreciated on the same day abdomen and pelvis CT. Normal caliber thoracic aorta. The heart is normal in size. No me diastinal or hilar lymphadenopathy. Mild thickening within the distal esophagus which has slightly im proved. No mediastinal hematoma. No pleural or pericardial effusions. No pneumothorax. Mild respirato ry motion artifact. The central airways are patent. Punctate calcified granuloma within the right mid dle lobe. Otherwise, the lungs are clear. IMPRESSION: 1. No acute traumatic process within the chest. 2. Gas and a catheter tip within the right glenohumeral joint. This may be related to recent postoper ative change. Clinical correlation recommended. 3. Old posttraumatic changes as described above. Electronically signed by: Brennen King M.D. 09/21/2018 6:03 PM
[2018-09-21 18:06] LABS: Albumin Globulin Ratio 1.2 (0.9-2); Alkaline Phosphatase 171 U/L (45-117); Bilirubin,Total 2.2 mg/dl (0.2-1); Creatine Kinase 1420 U/L (26-192); Globulin 3.7 gm/dl (2.5-4.0); Total Protein 8.1 gm/dl (6.4-8.2)
[2018-09-21] MEDS ORDERED: VANCOMYCIN CONSULT ACTIVE PRN (18:06)
[2018-09-21] MEDS ORDERED: PIPERACILLIN/TAZOBACTAM 4.5 GM/120 ML BAG IV ONE (18:06)
[2018-09-21] MEDS ORDERED: VANCOMYCIN HCL 1,250 MG in SODIUM CHLORIDE 0.9% 500 ML IV ONE (18:06)
--- NOTE | 2018-09-21 18:56 | History & Physical Report ---
Date of Service September 21, 2018 Assessment & Plan (1) Hypotension: Initial BP upon arrival to ED 94/73 and fell as low as 81/53. Hemodynamics improved with fluid resuscitation. Hypotension probably due to intravascular volume depletion from nausea/vomiting and pancreatitis. Severe metabolic acidosis may be contributing factor. Consider sepsis, but other pathophysiologies probably causing hemodynamic and metabolic abnormalities. Continue to monitor. (2) Acute kidney injury: Serum creatinine 1.67 compared to baseline of 0.5 on 07/11/18. TYRONE probably due to intravascular volume depletion from nausea/vomiting and pancreatitis. CPK elevated, but probably not high enough to cause ATN. Continue IV fluids. Follow. (3) Metabolic acidosis: Severe metabolic acidosis with increased anion gap, elevated lactate, ketonuria. Probable alcoholic keto / lactic acidosis. Consider sepsis, but other pathophysiologies probably causing hemodynamic and metabolic abnormalities. IV fluids / bicarb. Follow lytes, lactate. (4) Hypokalemia: Serum K 2.9. Replace. Follow. (5) Alcoholic cirrhosis: Cirrhosis of liver attributed to alcohol with associated esophageal varices but no ascites. LFT's as noted. INR 1.1. Thrombocytopenic. (6) Alcohol withdrawal: Blood alcohol level in ED 228, but pt feels that she is withdrawing. Management per alcohol withdrawal protocol. May not be able to tolerate gabapentin due to N/V, so benzodiazepines may be best option. (7) Alcoholism: History of heavy alcohol intake, complicated by cirrhosis, esophageal varices, pancreatitis. Received thiamine and MVI in ED. Monitor for withdrawal symptoms. Ongoing counseling / support. (8) Acute pancreatitis: Experiencing epigastric pain, nausea, vomiting. CT consistent with pancreatitis. Lipase 20,000. Most likely etiology alcohol-related. IV fluid resuscitation, analgesics, anti-emetics. (9) Rhabdomyolysis: Total CPK 1103. Probable rhabdomyolysis secondary to immobilization and metabolic abnormalities. IV fluids. Follow CPK and renal function. (10) Abnormal urinalysis: UA shows 2+ ketones, 3+ blood, + nitrites, trace leukocyte esterase, 10-30 WBC's, may epithelial cells. Denies urinary symptoms. May or may not have UTI. Consider sepsis, but other pathophysiologies probably causing hemodynamic and metabolic abnormalities. Received vancomycin and piperacillin / tazobactam in ED. Follow culture results. (11) Altered mental state: Head CT negative. Probable metabolic / hepatic encephalopathy. Follow neuro status. (12) Thrombocytopenia: Platelet count 106,000. Thrombocytopenia probably secondary to alcohol / cirrhosis. Follow. (13) Admitted to intensive care unit: Famotidine for GI prophylaxis. (14) DVT prophylaxis: No anticoagulants due to alcohol abuse and trauma. SCD's. Ambulate when able. (15) Discharge planning issues: Discharge disposition to be determined. Medical follow-up with Dr. Ge. History of Present Illness Chief Complaint: abdominal pain, nausea, vomiting Primary Care Provider: Pita Wolfe MD 53-year-old female with history of alcohol abuse associated with cirrhosis of li isaias. Last hospitalized in June 2018 for complications of alcohol abuse with alcohol intoxication/withdrawal, pancreatitis, severe metabolic abnormalities. EGD during that hospitalization demonstrated 2 large esophageal varices which were banded. Patient was found on the floor today by her friend. Last time she was seen well was about 2 days prior to admission. EMS summoned. Patient was hypotensive in the field. Poor IV access. Intraosseous access attempted in the right humeral head without success; IO access was achieved in the right tibia. Fluid resuscitation was initiated with and patient was brought to the ED for further management. In the ED she received additional fluid resuscitation as well as IV thiamine / MVI. Patient more alert at the time of my assessment. Blood pressure had improved with fluid resuscitation. She states that last alcohol intake was a couple days ago. Unable to quantify her daily alcohol ingestion. Complains of severe upper abdominal pain associated nausea and vomiting. No hematemesis, melena, hematochezia. Complains of pain in bilat arms and legs. Pt feels that she is experiencing alcohol withdrawal. No fever, cough, dysuria. Allergies Allergy/AdvReac Type Severity Reaction Status Date / Time diphenhydramine Allergy Severe seizures/it Verified 09/21/18 17:17 mya/tremo rs bupropion Allergy Intermediate Palpitation Verified 09/21/18 17:17 s clarithromycin Allergy Intermediate HIVES Verified 09/21/18 17:17 aspirin Allergy Mild hives/ringing Verified 09/21/18 17:17 of ears oxaprozin Allergy Mild nausea/vomi Verified 09/21/18 17:17 ting salicylates Allergy Mild ringing in Verified 09/21/18 17:17 ears/hives tramadol Allergy Mild hives/upset Verified 09/21/18 17:17 stomach Home Medications Home Medications Medication Instructions Recorded Confirmed Type Creon 1 cap PO TIDM #90 cap 07/04/18 09/21/18 Rx magnesium oxide 800 mg PO HS #15 tab 07/04/18 09/21/18 Rx pantoprazole 40 mg PO BID #60 tab 07/04/18 09/21/18 Rx thiamine HCl (vitamin B1) [Vitamin 100 mg PO QAM #30 tab 07/04/18 09/21/18 Rx B-1] tramadol 50 mg PO Q6H PRN #14 tab 07/11/18 09/21/18 Rx Centrum Silver 1 tab PO QAM 08/08/18 09/21/18 History calcium carbonate-vitamin D3 1 tab PO BID 08/08/18 09/21/18 History [Calcium 500 With D] citalopram [Celexa] 10 mg PO QAM 08/08/18 09/21/18 History gabapentin 300 mg PO TID 08/08/18 09/21/18 History hydroxyzine HCl 25 - 50 mg PO BID PRN 08/08/18 09/21/18 History multivitamin with minerals 3 tab PO QAM 08/08/18 09/21/18 History [Hair,Skin and Nails] omeprazole 20 mg PO QAM 08/08/18 09/21/18 History folic acid 1 mg PO DAILY 09/21/18 09/21/18 History loperamide 2 mg PO Q6 PRN 09/21/18 09/21/18 History meloxicam 7.5 mg PO BID PRN 09/21/18 09/21/18 History ondansetron 4 mg TRANSLINGUAL Q8 09/21/18 09/21/18 History sucralfate [Carafate] 1 g PO ACHS 09/21/18 09/21/18 History Past Med/Surg History Medical History Lumbago (Chronic) Multiple sclerosis (Chronic) Alcohol abuse Anxiety Cirrhosis Degenerative disc disease Esophageal varices with banding Factitious disorder Fibromyalgia Opiate addiction Pancreatitis Presence of intrathecal pump containing morphine 0.189mg/day and fentanyl 2.52mcg/day miminimal rate per pt "it doesnt work I haven't been able to afford the medication for 3 years now"?? Sedative abuse Seizures None for greater than a year Surgical History History of Jeffy-en-Y gastric bypass History of cholecystectomy History of colonoscopy History of esophagogastroduodenoscopy (EGD) History of open reduction and internal fixation (ORIF) procedure left arm/left leg--hardware in place History of tooth extraction all teeth removed History of total hysterectomy with bilateral salpingo-oophorectomy (BSO) Family History Other Aneurysm Cancer No family history of adverse response to anesthesia Stroke Social History Preferred Language: Nepalese Communication Ability: Effective Clinical Evaluator Required: No Beliefs That Will Affect Care: None marital status: Current Living Situation: Alone Other Information That Helps Us Care for You: No Feels Safe at Home: Yes Safety Concerns: Feels Safe At This Time Smoking Status: Former smoker Smoking End Date: not sure ; Second Hand Exposure: Yes ; Tobacco Cessation Education Requested by Patient: No Hx Alcohol Use: Yes Alcohol type: hard liquor Hx Substance Use: No Review of Systems Constitutional: + malaise; no fever and no weight loss Eyes: no diplopia and no worsening vision Ear, Nose, Mouth, Throat: no nasal congestion, no sinus pain/pressure and no sore throat Respiratory: no cough and no dyspnea Cardiovascular: no chest pain, no palpitations and no edema Gastrointestinal: as per Subjective / HPI Genitourinary: no dysuria and no hematuria Musculoskeletal: no joint pain and no myalgia Integumentary: no rash and no new lesions Neurologic: no headache(s) Endocrine: no polydipsia and no polyuria Hematologic / Lymphatic: + easy bleeding and + easy bruising; no lymphadenopathy Physical Exam Constitutional: WD/WN, vitals as above + acute distress, + ill appearing and + cachectic Eyes: PERRL, conjunctivae normal, anicteric sclerae ENMT: external ear and nose normal, oropharynx normal Mouth: + edentulous Neck: trachea midline, no thyromegaly Respiratory: normal respiratory effort, lungs clear to auscultation Cardiovascular: Rate/Rhythm: regular rate Heart Sounds: no gallop, no murmur and no cardiac rub Vessels: no JVD Extremities: normal capillary refill; no calf tenderness and no edema Gastrointestinal (Abdomen): Inspection/Auscultation: abdomen not distended Percussion/Palpation: + abdomen tender (epigastric), abdomen soft and + hepatomegaly Musculoskeletal: Head/Neck/Chest: neck supple Extremities: strength 5/5 throughout; no cyanosis and no clubbing IO access right shoulder and right tibia Skin: no rashes, warm and dry Trauma: + abrasion (left knee) and + contusion (multiple) Neurologic: PERRL, EOMI no facial palsy no dysarthria or aphasia patellar DTR's 2/2 bilat Psychiatric: Orientation: alert; + not oriented x 3 (moderate confusion) Affect: + anxious affect Genitourinary: Dial cath Lymphatic: no cervical lymphadenopathy Results & Data Vital Signs (Past 12 Hours) Vital Signs Temp Pulse Resp BP Pulse Ox 09/21/18 18:45 113 H 21 100 09/21/18 18:30 36.4 C L 109 H 20 113/56 L 100 09/21/18 18:20 105 H 18 110/67 95 09/21/18 18:15 100 H 18 100 09/21/18 18:03 101 H 16 100 09/21/18 18:01 81/53 L 100 09/21/18 17:30 94 H 21 09/21/18 17:15 93 H 20 09/21/18 17:00 93 H 19 09/21/18 16:45 94 H 18 100 09/21/18 16:42 34.8 C L 96 H 20 84/62 L 100 09/21/18 16:36 101 H 28 H 94/73 L 99 Laboratory Results Short CBC 09/21/18 09/21/18 09/22/18 Range/Units 17:04 22:19 03:52 WBC 6.67 2.97 L (4.8-10.8) K/uL Hgb 10.0 L 8.3 L 7.5 L (12.0-16.0) g/dL Hct 34.6 L 28.3 L 25.1 L (37-47) % Plt Count 106 L 30 L D (130-400) K/uL BMP 09/21/18 09/21/18 09/22/18 17:04 22:17 03:52 Sodium 143 142 140 Potassium 2.9 L 2.6 L 2.8 L Chloride 104 108 H 102 Carbon Dioxide 8 L* 15 L 24 BUN 34 H 30 H 25 H Creatinine 1.67 H 1.07 0.86 Glucose 70 244 H 108 H Calcium 7.9 L 6.6 L D 6.5 L Cardiac Enzymes 09/21/18 09/21/18 09/22/18 Range/Units 17:04 17:04 03:52 Total Creatine Kinase 1420 H 1103 H (26-192) U/L Troponin I < 0.015 (0-0.045) ng/ml Liver Function 09/21/18 09/21/18 09/22/18 Range/Units 17:04 17:04 03:52 Total Bilirubin 2.2 H 1.9 H (0.2-1) mg/dl Direct Bilirubin 1.5 H 1.2 H (0-0.2) mg/dl AST 190 H 129 H (15-37) U/L ALT 74 53 (12-78) U/L Alkaline Phosphatase 171 H 120 H (45-117) U/L Albumin 4.4 3.1 L (3.4-5.0) gm/dl Urine 09/21/18 Range/Units 18:45 Urine Color Dark Yellow Urine Appearance Cloudy A (Clear) Urine pH 5.0 (4.5-7.5) Ur Specific [place] 1.020 (1.000-1.030) Urine Protein 2+ H (Negative) Urine Glucose (UA) Negative (Negative) Diagnostic Findings PORTABLE CHEST X-RAY IMPRESSION: 1. Cardiac enlargement with no radiographic evidence of congestive failure. 2. Low lung volumes with no airspace consolidation or pleural effusion. Electronically signed by: Herbie Reese M.D. 09/21/2018 8:22 PM LEFT HUMERUS 2 VIEWS IMPRESSION: There is no radiographic evidence of left humeral fracture. Electronically signed by: Herbie Reese M.D. 09/21/2018 8:19 PM RIGHT HUMERUS 2 VIEWS IMPRESSION: 1. Osteopenia with no radiographic evidence of right humeral fracture. 2. Nonspecific gas is again seen within the right shoulder joint. Clinical correlation will be required. Electronically signed by: Herbie Reese M.D. 09/21/2018 9:01 PM LEFT FEMUR 2 VIEWS IMPRESSION: Osteopenia and chronic/postoperative changes as above. There is no radiographic evidence of acute left femoral fracture. Electronically signed by: Herbie Reese M.D. 09/21/2018 8:53 PM LEFT TIBIA AND FIBULA 2 VIEWS IMPRESSION: There is no radiographic evidence of acute fracture involving the left tibia or fibula. Electronically signed by: Herbie Reese M.D. 09/21/2018 8:38 PM RIGHT FEMUR 2 VIEWS IMPRESSION: Osteopenia with no radiographic evidence of right femoral fracture. Electronically signed by: Herbie Reese M.D. 09/21/2018 8:51 PM RIGHT TIBIA AND FIBULA 2 VIEWS IMPRESSION: 1. Osteopenia with no radiographic evidence of right tibial or fibular fracture. 2. An indeterminant catheter is present within the proximal tibia. Clinical correlation will be required. Electronically signed by: Herbie Reese M.D. 09/21/2018 9:[address] SCAN OF THE BRAIN WITHOUT IV CONTRAST IMPRESSION: No acute intracranial abnormality. Electronically signed by: Herbie Reese M.D. 09/21/2018 5:[address] CERVICAL SPINE IMPRESSION: No change compared to the prior study. No acute fractures within the cervical spine. Electronically signed by: Brennen King M.D. 09/21/2018 5:[address] CHEST IMPRESSION: 1. No acute traumatic process within the chest. 2. Gas and a catheter tip within the right glenohumeral joint. This may be related to recent postoperative change. Clinical correlation recommended. 3. Old posttraumatic changes as described above. Electronically signed by: Brennen King M.D. 09/21/2018 6:[address] ABD + PELVIS IMPRESSION: 1. Suboptimal examination without oral and IV contrast. 2. There is no evidence of solid organ injury in the abdomen or pelvis on this unenhanced examination. 3. A Dial catheter is located within the vagina. Repositioning is indicated. 4. Findings suggest acute pancreatitis. Correlation with clinical findings and serum amylase/lipase levels is recommended. 5. There is evidence of cirrhosis and severe steatosis of the liver. 6. Left-sided nephrolithiasis. 7. Underdistention versus wall thickening is noted in the right colon. This may represent portal colopathy. Correlate clinically for evidence of a mild colitis. 8. Numerous chronic fractures as above. No acute fracture is clearly seen. 9. Additional findings as above. Electronically signed by: Herbie Reese M.D. 09/21/2018 6:03 PM ECG Additional Comments: EKG performed at 16:40 reviewed and demonstrated NSR at 99 / min, QTc 536 msec, inverted T-waves aVL. (1) Hypotension Hypotension type: unspecified hypotension type Qualified Code(s): I95.9 - Hypotension, unspecified (2) Acute pancreatitis Acute pancreatitis complication: unspecified Pancreatitis type: alcohol induced Qualified Code(s): K85.20 - Alcohol induced acute pancreatitis without necrosis or infection (3) Rhabdomyolysis Rhabdomyolysis type: non-traumatic Qualified Code(s): M62.82 - Rhabdomyolysis
--- NOTE | 2018-09-21 19:00 | Emergency Department Note ---
Entered by Kiersten Hoffman acting as a scribe for History of Present Illness General Chief complaint: Fall Stated complaint: HYPOTENSION, FALL, Time Seen by Provider: 09/21/18 16:10 Source: patient Mode of arrival: EMS Limitations: no limitations History of Present Illness Onset (ago): day(s) 2 Location: head Pain Consistency: + other (episode) Quality: + other (fall) Associated symptoms: + denies other symptoms (suicidal ideation), + chest pain and + other (neck pain, abdominal pain, incontinence) The patient is a 53 year old female who presents to the Emergency Room with comp laints of an episode of a fall that occurred 2 days ago. Per EMS, the patient's boyfriend was unable to get in contact with the patient, so he went to her house. EMS notes that he heard a faint yell while he was at her house, and he called the police. Per EMS, the police then called EMS. EMS notes that they found her on the floor with an empty 1 liter alcohol bottle and an empty fifth of gin. The patient states that she was on the floor for 2 days, and she was not able to eat or drinking during that time. The patient complains "that her whole body hurts," including her neck, chest, and abdomen. She complains of incontinence. The patient complains of multiple seizures. The patient denies any suicidal ideation. Per EMS, the patient has a history of alcoholism. She denies the use of at-home oxygen. Home Medications Home Medications Medication Instructions Recorded Confirmed Type Creon 1 cap PO TIDM #90 cap 07/04/18 09/21/18 Rx magnesium oxide 800 mg PO HS #15 tab 07/04/18 09/21/18 Rx pantoprazole 40 mg PO BID #60 tab 07/04/18 09/21/18 Rx thiamine HCl (vitamin B1) [Vitamin 100 mg PO QAM #30 tab 07/04/18 09/21/18 Rx B-1] tramadol 50 mg PO Q6H PRN #14 tab 07/11/18 09/21/18 Rx Centrum Silver 1 tab PO QAM 08/08/18 09/21/18 History calcium carbonate-vitamin D3 1 tab PO BID 08/08/18 09/21/18 History [Calcium 500 With D] citalopram [Celexa] 10 mg PO QAM 08/08/18 09/21/18 History gabapentin 300 mg PO TID 08/08/18 09/21/18 History hydroxyzine HCl 25 - 50 mg PO BID PRN 08/08/18 09/21/18 History multivitamin with minerals 3 tab PO QAM 08/08/18 09/21/18 History [Hair,Skin and Nails] omeprazole 20 mg PO QAM 08/08/18 09/21/18 History folic acid 1 mg PO DAILY 09/21/18 09/21/18 History loperamide 2 mg PO Q6 PRN 09/21/18 09/21/18 History meloxicam 7.5 mg PO BID PRN 09/21/18 09/21/18 History ondansetron 4 mg TRANSLINGUAL Q8 09/21/18 09/21/18 History sucralfate [Carafate] 1 g PO ACHS 09/21/18 09/21/18 History Allergies Allergy/AdvReac Type Severity Reaction Status Date / Time diphenhydramine Allergy Severe seizures/it Verified 09/21/18 17:17 mya/tremo rs bupropion Allergy Intermediate Palpitation Verified 09/21/18 17:17 s clarithromycin Allergy Intermediate HIVES Verified 09/21/18 17:17 aspirin Allergy Mild hives/ringing Verified 09/21/18 17:17 of ears oxaprozin Allergy Mild nausea/vomi Verified 09/21/18 17:17 ting salicylates Allergy Mild ringing in Verified 09/21/18 17:17 ears/hives tramadol Allergy Mild hives/upset Verified 09/21/18 17:17 stomach Past Med/Surg History Medical History Lumbago (Chronic) Multiple sclerosis (Chronic) Alcohol abuse Anxiety Cirrhosis Degenerative disc disease Esophageal varices with banding Factitious disorder Fibromyalgia Opiate addiction Pancreatitis Presence of intrathecal pump containing morphine 0.189mg/day and fentanyl 2.52mcg/day miminimal rate per pt "it doesnt work I haven't been able to afford the medication for 3 years now"?? Sedative abuse Seizures None for greater than a year Surgical History History of Jeffy-en-Y gastric bypass History of cholecystectomy History of colonoscopy History of esophagogastroduodenoscopy (EGD) History of open reduction and internal fixation (ORIF) procedure left arm/left leg--hardware in place History of tooth extraction all teeth removed History of total hysterectomy with bilateral salpingo-oophorectomy (BSO) Family History Other Aneurysm Cancer No family history of adverse response to anesthesia Stroke Social History Preferred Language: Telugu Communication Ability: Effective Insulation Hoseman Required: No Beliefs That Will Affect Care: None marital status: Current Living Situation: Alone Other Information That Helps Us Care for You: No Feels Safe at Home: Yes Safety Concerns: Feels Safe At This Time Smoking Status: Former smoker Smoking End Date: not sure ; Second Hand Exposure: Yes ; Tobacco Cessation Education Requested by Patient: No Hx Alcohol Use: Yes Alcohol type: hard liquor Hx Substance Use: No Review of Systems See HPI for pertinent positives & negatives. and A total of 10 systems reviewed and were otherwise negative Physical Exam Vital Signs Vital Signs - 24 hr 09/21/18 16:19 09/21/18 16:36 09/21/18 16:42 Temperature 34.8 C L Temperature Source Rectal Sepsis Recent Fever Within 48 Hours No Sepsis New/Unexplained Change in Mental Status No Sepsis Action Taken by Nursing No Action Required Pulse Rate 101 H 96 H Pulse Rate from SpO2 Sensor Respiratory Rate 28 H 20 Blood Pressure 94/73 L 84/62 L Blood Pressure Mean 80 69 Pulse Oximetry 99 100 Oxygen Delivery Method Room Air Room Air Room Air Oxygen Flow Rate 09/21/18 16:45 09/21/18 17:00 09/21/18 17:15 Temperature Temperature Source Sepsis Recent Fever Within 48 Hours Sepsis New/Unexplained Change in Mental Status Sepsis Action Taken by Nursing Pulse Rate 94 H 93 H 93 H Pulse Rate from SpO2 Sensor Respiratory Rate 18 19 20 Blood Pressure Blood Pressure Mean Pulse Oximetry 100 Oxygen Delivery Method Room Air Oxygen Flow Rate 09/21/18 17:30 09/21/18 18:01 09/21/18 18:03 Temperature Temperature Source Sepsis Recent Fever Within 48 Hours Sepsis New/Unexplained Change in Mental Status Sepsis Action Taken by Nursing Pulse Rate 94 H 101 H Pulse Rate from SpO2 Sensor 103 H 100 H Respiratory Rate 21 16 Blood Pressure 81/53 L Blood Pressure Mean 62 Pulse Oximetry 100 100 Oxygen Delivery Method Oxygen Flow Rate 09/21/18 18:15 09/21/18 18:20 09/21/18 18:30 Temperature 36.4 C L Temperature Source Oral Sepsis Recent Fever Within 48 Hours Sepsis New/Unexplained Change in Mental Status Sepsis Action Taken by Nursing Pulse Rate 100 H 105 H 109 H Pulse Rate from SpO2 Sensor 100 H 103 H 110 H Respiratory Rate 18 18 20 Blood Pressure 110/67 113/56 L Blood Pressure Mean 81 75 Pulse Oximetry 100 95 100 Oxygen Delivery Method Oxygen Flow Rate 09/21/18 18:45 09/21/18 19:00 Temperature Temperature Source Sepsis Recent Fever Within 48 Hours Sepsis New/Unexplained Change in Mental Status Sepsis Action Taken by Nursing Pulse Rate 113 H 120 H Pulse Rate from SpO2 Sensor 112 H Respiratory Rate 21 21 Blood Pressure 106/82 Blood Pressure Mean 90 Pulse Oximetry 100 100 Oxygen Delivery Method Nasal Cannula Oxygen Flow Rate 2 GENERAL: Awake, alert, ill-appearing, in no distress. HENT: Normocephalic, atraumatic. Oropharynx with dry-cracked mucous membranes and otherwise unremarkable. EYES: Normal conjunctiva. Sclera non-icteric. EOMI. No nystamgus. PEARRL. NECK: Supple. No nuchal rigidity. FROM. No JVD. RESPIRATORY: CTAB. CARDIAC: Tachycardic rate, normal rhythm. Extremities warm and well perfused. Pulses equal. ABDOMEN: Soft, non-distended. No tenderness to palpation. No rebound or guarding. No masses. RECTAL: Deferred. MUSCULOSKELETAL: Chest examination reveals no tenderness. The back is symmetrical on inspection without obvious abnormality. Tenderness of the bilateral lumbar region without midline tenderness or bony crepitus. Tenderness throughout the cervical paraspinal muscles and midline without bony crepitus or step-off. Generalized muscular tenderness without discrete CVA tenderness to palpation. No joint edema. LOWER EXTREMITIES: Calves are equal size bilaterally and non-tender. No edema. No discoloration. NEURO: Normal sensorium. No sensory or motor deficits noted. SKIN: No rash or jaundice noted. Ecchymosis to the left clavicle, right breast, and bilateral pretibial regions. There is a 5cm superficial sacral ulcer/skin tear. Skin is cool and clammy. Procedures EJ/Peripheral Line Arm L: Skin Cleansed in Sterile Fashion: Yes Size (gauge): 20 IV Secured and Dressing Applied: Yes Patient Tolerated Procedure: well Additional Comments: Performed under dynamic ultrasound guidance Arm R: Skin Cleansed in Sterile Fashion: Yes Size (gauge): 20 IV Secured and Dressing Applied: Yes Patient Tolerated Procedure: well Additional Comments: Performed under dynamic ultrasound guidance Course 1644: The patient was evaluated in room A04. A complete history and physical exam was performed. 1658: The Karla Hugger system was started. 1801: I spoke with Timur Burgess PA-C, about the patients case. 1811: I notified Dr. Navarro, ICU, that the admitting team may want the patient cared for by the ICU. 1933: I spoke with Dr. Cadena, [facility] hospitalist, about the patients case. He will further evaluate her. Consultations Consultation #1: I spoke with Timur Burgess PA-C, about the patients case. Time: 18:02 Consultation #2: I notified Dr. Navarro, ICU, that the admitting team may want the patient cared for by the ICU. Time: 18:12 Consultation #3: [facility] He will further evaluate her. Time: 19:34 Administered Medications Potassium Chloride (K Reid / Wtr) 10 meq in 100 mls @ 100 mls/hr IV Q1H MICHELLE Stop: 09/22/18 02:14 Last Admin: 09/21/18 22:19 Dose: 100 mls/hr Documented by: [id number] Morphine Sulfate (Morphine Sulfate) 2 mg IV Q2H PRN PRN Reason: Pain Stop: 10/05/18 22:47 Last Admin: 09/21/18 23:07 Dose: 2 mg Documented by: [id number] Discontinued Medications Dextrose (Dextrose 50%) 50 ml IV NOW ONE Stop: 09/21/18 18:01 Last Admin: 09/21/18 18:23 Dose: 50 ml Documented by: [id number] Hydromorphone HCl (Dilaudid) 0.25 mg IV NOW STA Stop: 09/21/18 19:04 Last Admin: 09/21/18 19:36 Dose: Not Given Documented by: [id number] Hydromorphone HCl (Dilaudid) Confirm Administered Dose 0.5 mg .ROUTE .STK-MED ONE Stop: 09/21/18 19:16 Last Admin: 09/21/18 19:20 Dose: 0.25 mg Documented by: [id number] Multivitamins 10 ml/ Thiamine HCl 100 mg/ Folic Acid 1 mg/Sodium Chloride 1,011.2 mls @ 1,011.2 mls/hr IV .Q1H STA Stop: 09/21/18 17:18 Last Infusion: 09/21/18 18:15 Dose: 0 mls/hr Documented by: [id number] Admin: 09/21/18 17:15 Dose: 1,011.2 mls/hr Documented by: [id number] Sodium Chloride (Nss 1000ml) 1,000 mls @ 999 mls/hr IV .Q1H1M ONE Stop: 09/21/18 17:19 Last Infusion: 09/21/18 18:15 Dose: 0 mls/hr Documented by: [id number] Admin: 09/21/18 17:14 Dose: 999 mls/hr Documented by: [id number] Thiamine HCl 100 mg/ Syringe 10 mls @ 2 mls/min IV NOW STA Stop: 09/21/18 16:23 Last Admin: 09/21/18 17:14 Dose: 2 mls/min Documented by: [id number] Famotidine (Pepcid 20mg Iv Push) 20 mg in 5 mls @ 2.5 mls/min IV NOW STA Stop: 09/21/18 17:33 Last Admin: 09/21/18 18:04 Dose: 2.5 mls/min Documented by: [id number] Dextrose/Sodium Chloride (D5w And Nss) 1,000 mls @ 999 mls/hr IV .Q1H1M STA Stop: 09/21/18 18:33 Last Infusion: 09/21/18 19:06 Dose: 0 mls/hr Documented by: [id number] Admin: 09/21/18 18:05 Dose: 999 mls/hr Documented by: [id number] Potassium Chloride (K Reid / Wtr) 10 meq in 100 mls @ 100 mls/hr IV NOW STA Stop: 09/21/18 18:36 Last Infusion: 09/21/18 19:37 Dose: 0 mls/hr Documented by: [id number] Admin: 09/21/18 18:30 Dose: 100 mls/hr Documented by: [id number] Magnesium Sulfate/Dextrose (Magnesium Sulfate / D5w) 1 gm in 100 mls @ 100 mls/hr IV NOW STA Stop: 09/21/18 18:37 Last Admin: 09/21/18 18:10 Dose: Not Given Documented by: [id number] Sodium Bicarbonate 150 meq/ (Sterile Water) 1,150 mls @ 250 mls/hr IV .Q4H36M ONE Stop: 09/21/18 22:35 Last Admin: 09/21/18 19:04 Dose: 250 mls/hr Documented by: [id number] Piperacillin Sod/Tazobactam Sod (Zosyn) 4.5 gm in 120 mls @ 30 mls/hr IV NOW ONE Stop: 09/21/18 22:05 Last Admin: 09/21/18 20:09 Dose: 30 mls/hr Documented by: [id number] Vancomycin HCl 1,250 mg/ (Sodium Chloride) 525 mls @ 200 mls/hr IV NOW ONE; Protocol Stop: 09/21/18 20:43 Last Admin: 09/21/18 21:00 Dose: 200 mls/hr Documented by: [id number] Lorazepam (Ativan) 0.5 mg in 1 mls @ 1 mls/min IV NOW STA Stop: 09/21/18 19:03 Last Admin: 09/21/18 19:36 Dose: Not Given Documented by: [id number] Lorazepam (Ativan) Confirm Administered Dose 2 mg .ROUTE .STK-MED ONE Stop: 09/21/18 19:16 Last Admin: 09/21/18 19:20 Dose: 0.5 mg Documented by: [id number] Ondansetron HCl (Zofran) Confirm Administered Dose 4 mg .ROUTE .STK-MED ONE Stop: 09/21/18 17:04 Last Admin: 09/21/18 17:14 Dose: 4 mg Documented by: [id number] Ondansetron HCl (Zofran) 4 mg IV NOW STA Stop: 09/21/18 17:23 Last Admin: 09/21/18 18:12 Dose: Not Given Documented by: [id number] Medical Decision Making Differential Diagnosis Differential includes acute cardiac dysrhythmia, microinfarction, CVA, TIA, dehydration, anemia, electrolyte disturbance, seizure, trauma, intracranial bleeding, acute vascular catastrophe, thoracic aortic dissection, PE, abdominal aortic aneurysm rupture, ectopic rupture. Medical Records Attestation: I reviewed the patient's medical records. Home Medications Current Medication List: was personally reviewed by me Laboratory Data Attestation: I reviewed the patient's lab results. Result diagrams: 09/21/18 22:19 09/21/18 22:17 Lab Results 09/21/18 09/21/18 09/21/18 Range/Units 17:04 17:04 17:04 WBC 6.67 (4.8-10.8) K/uL RBC 4.44 (4.2-5.4) M/uL Hgb 10.0 L (12.0-16.0) g/dL POC Hgb (12.0-16.0) g/dl Hct 34.6 L (37-47) % POC Hct (37-47) % MCV 77.9 L (80-100) fL MCH 22.5 L (25-34) pg MCHC 28.9 L (32-36) g/dL RDW Std Deviation 63.5 H (36.4-46.3) fL RDW Coeff of Chetan 22.3 H (11.5-14.5) % Plt Count 106 L (130-400) K/uL MPV 9.6 (7.4-10.4) fL Immature Gran % (Auto) 0.3 % Neut % (Auto) 89.5 % Lymph % (Auto) 4.5 % White % (Auto) 5.4 % Eos % (Auto) 0.0 % Baso % (Auto) 0.3 % Immature Gran # (Auto) 0.02 (0.00-0.02) K/uL Neut # (Auto) 5.97 (1.4-6.5) K/uL Lymph # (Auto) 0.30 L (1.2-3.4) K/uL White # (Auto) 0.36 (0.11-0.59) K/uL Eos # (Auto) 0.00 (0-0.5) K/uL Baso # (Auto) 0.02 (0-0.2) K/uL Absolute Nucleated RBC 0.05 H (0-0) K/uL Nucleated RBC % (auto) 0.7 % Hypochromasia Present Anisocytosis Present Joseph[place] Bodies Occasional Echinocytes 1+ PT 10.9 (9.0-12.0) Seconds INR 1.1 (0.9-1.1) APTT 26.2 (21.0-31.0) Seconds PTT Ratio 1.0 VBG pH (7.36-7.41) VBG pCO2 (38-50) mmHg VBG pO2 mmHg VBG HCO3 mmol/L VBG O2 Saturation % VBG Base Excess mEq/L Barometric Pressure mm/Hg POC Sodium (135-144) mEq/L Sodium 143 (136-145) mmol/L POC Potassium (3.3-5.0) mEq/L Potassium 2.9 L (3.5-5.1) mmol/L POC Chloride (101-112) mEq/L Chloride 104 (98-107) mmol/L Carbon Dioxide 8 L* (21-32) mmol/L POC Total CO2 (24-31) mEq/l Anion Gap 31.0 H (3-11) POC Anion Gap (16-25) mmol/L POC BUN (7-18) mg/dl BUN 34 H (7-18) mg/dl Creatinine 1.67 H (0.6-1.2) mg/dl POC Creatinine (0.6-1.3) mg/dl Est Cr Clr Drug Dosing Not Reportable Est GFR ( Amer) 39.8 Est GFR (Non-Af Amer) 34.3 BUN/Creatinine Ratio 20.6 H (10-20) Glucose 70 (70-99) mg/dl POC Glucose (other) (70-99) mg/dl Osmolality (280-300) mOsm/kg Lactate (0.4-2.0) mmol/L Calcium 7.9 L (8.5-10.1) mg/dl POC Ioniz Calcium Elizabeth (1.12-1.32) mmol/l Phosphorus (2.5-4.9) mg/dl Magnesium (1.8-2.4) mg/dl Total Bilirubin 2.2 H (0.2-1) mg/dl Direct Bilirubin (0-0.2) mg/dl AST 190 H (15-37) U/L ALT 74 (12-78) U/L Alkaline Phosphatase 171 H (45-117) U/L Total Creatine Kinase 1420 H (26-192) U/L Troponin I (0-0.045) ng/ml Total Protein 8.1 (6.4-8.2) gm/dl Albumin 4.4 (3.4-5.0) gm/dl Globulin 3.7 (2.5-4.0) gm/dl Albumin/Globulin Ratio 1.2 (0.9-2) Lipase (73-393) U/L Urine Color Urine Appearance (Clear) Urine pH (4.5-7.5) Ur Specific [place] (1.000-1.030) Urine Protein (Negative) Urine Glucose (UA) (Negative) Urine Ketones (Negative) Urine Blood (Negative) Urine Nitrite (Negative) Urine Bilirubin (Negative) Urine Urobilinogen (Negative) Ur Leukocyte Esterase (Negative) Urine WBC (Auto) (0-5) /hpf Urine RBC (Auto) (0-4) /hpf U Hyaline Cast (Auto) (0-5) /lpf U Epithel Cells (Auto) (0-5) /lpf Urine Bacteria (Auto) (Negative) Ur Renal Epithelial Cell (0-5) /lpf Amorphous Sediment (None Prsent) Urine Yeast Ethyl Alcohol mg/dL (0-3) mg/dl Blood Type Antibody Screen 09/21/18 09/21/18 09/21/18 Range/Units 17:04 17:04 17:04 WBC (4.8-10.8) K/uL RBC (4.2-5.4) M/uL Hgb (12.0-16.0) g/dL POC Hgb (12.0-16.0) g/dl Hct (37-47) % POC Hct (37-47) % MCV (80-100) fL MCH (25-34) pg MCHC (32-36) g/dL RDW Std Deviation (36.4-46.3) fL RDW Coeff of Chetan (11.5-14.5) % Plt Count (130-400) K/uL MPV (7.4-10.4) fL Immature Gran % (Auto) % Neut % (Auto) % Lymph % (Auto) % White % (Auto) % Eos % (Auto) % Baso % (Auto) % Immature Gran # (Auto) (0.00-0.02) K/uL Neut # (Auto) (1.4-6.5) K/uL Lymph # (Auto) (1.2-3.4) K/uL White # (Auto) (0.11-0.59) K/uL Eos # (Auto) (0-0.5) K/uL Baso # (Auto) (0-0.2) K/uL Absolute Nucleated RBC (0-0) K/uL Nucleated RBC % (auto) % Hypochromasia Anisocytosis Joseph-[place] Bodies Echinocytes PT (9.0-12.0) Seconds INR (0.9-1.1) APTT (21.0-31.0) Seconds PTT Ratio VBG pH (7.36-7.41) VBG pCO2 (38-50) mmHg VBG pO2 mmHg VBG HCO3 mmol/L VBG O2 Saturation % VBG Base Excess mEq/L Barometric Pressure mm/Hg POC Sodium (135-144) mEq/L Sodium (136-145) mmol/L POC Potassium (3.3-5.0) mEq/L Potassium (3.5-5.1) mmol/L POC Chloride (101-112) mEq/L Chloride (98-107) mmol/L Carbon Dioxide (21-32) mmol/L POC Total CO2 (24-31) mEq/l Anion Gap (3-11) POC Anion Gap (16-25) mmol/L POC BUN (7-18) mg/dl BUN (7-18) mg/dl Creatinine (0.6-1.2) mg/dl POC Creatinine (0.6-1.3) mg/dl Est Cr Clr Drug Dosing Est GFR ( Amer) Est GFR (Non-Af Amer) BUN/Creatinine Ratio (10-20) Glucose (70-99) mg/dl POC Glucose (other) (70-99) mg/dl Osmolality 381 H* (280-300) mOsm/kg Lactate 2.9 H* (0.4-2.0) mmol/L Calcium (8.5-10.1) mg/dl POC Ioniz Calcium Elizabeth (1.12-1.32) mmol/l Phosphorus 5.2 H (2.5-4.9) mg/dl Magnesium 2.6 H (1.8-2.4) mg/dl Total Bilirubin (0.2-1) mg/dl Direct Bilirubin 1.5 H (0-0.2) mg/dl AST (15-37) U/L ALT (12-78) U/L Alkaline Phosphatase (45-117) U/L Total Creatine Kinase (26-192) U/L Troponin I < 0.015 (0-0.045) ng/ml Total Protein (6.4-8.2) gm/dl Albumin (3.4-5.0) gm/dl Globulin (2.5-4.0) gm/dl Albumin/Globulin Ratio (0.9-2) Lipase (73-393) U/L Urine Color Urine Appearance (Clear) Urine pH (4.5-7.5) Ur Specific [place] (1.000-1.030) Urine Protein (Negative) Urine Glucose (UA) (Negative) Urine Ketones (Negative) Urine Blood (Negative) Urine Nitrite (Negative) Urine Bilirubin (Negative) Urine Urobilinogen (Negative) Ur Leukocyte Esterase (Negative) Urine WBC (Auto) (0-5) /hpf Urine RBC (Auto) (0-4) /hpf U Hyaline Cast (Auto) (0-5) /lpf U Epithel Cells (Auto) (0-5) /lpf Urine Bacteria (Auto) (Negative) Ur Renal Epithelial Cell (0-5) /lpf Amorphous Sediment (None Prsent) Urine Yeast Ethyl Alcohol mg/dL (0-3) mg/dl Blood Type Antibody Screen 09/21/18 09/21/18 09/21/18 Range/Units 17:04 17:04 17:04 WBC (4.8-10.8) K/uL RBC (4.2-5.4) M/uL Hgb (12.0-16.0) g/dL POC Hgb (12.0-16.0) g/dl Hct (37-47) % POC Hct (37-47) % MCV (80-100) fL MCH (25-34) pg MCHC (32-36) g/dL RDW Std Deviation (36.4-46.3) fL RDW Coeff of Chetan (11.5-14.5) % Plt Count (130-400) K/uL MPV (7.4-10.4) fL Immature Gran % (Auto) % Neut % (Auto) % Lymph % (Auto) % White % (Auto) % Eos % (Auto) % Baso % (Auto) % Immature Gran # (Auto) (0.00-0.02) K/uL Neut # (Auto) (1.4-6.5) K/uL Lymph # (Auto) (1.2-3.4) K/uL White # (Auto) (0.11-0.59) K/uL Eos # (Auto) (0-0.5) K/uL Baso # (Auto) (0-0.2) K/uL Absolute Nucleated RBC (0-0) K/uL Nucleated RBC % (auto) % Hypochromasia Anisocytosis [place] Bodies Echinocytes PT (9.0-12.0) Seconds INR (0.9-1.1) APTT (21.0-31.0) Seconds PTT Ratio VBG pH 7.09 L (7.36-7.41) VBG pCO2 27 L (38-50) mmHg VBG pO2 47 mmHg VBG HCO3 8 mmol/L VBG O2 Saturation 68.1 % VBG Base Excess -20.6 mEq/L Barometric Pressure 725.3 mm/Hg POC Sodium (135-144) mEq/L Sodium (136-145) mmol/L POC Potassium (3.3-5.0) mEq/L Potassium (3.5-5.1) mmol/L POC Chloride (101-112) mEq/L Chloride (98-107) mmol/L Carbon Dioxide (21-32) mmol/L POC Total CO2 (24-31) mEq/l Anion Gap (3-11) POC Anion Gap (16-25) mmol/L POC BUN (7-18) mg/dl BUN (7-18) mg/dl Creatinine (0.6-1.2) mg/dl POC Creatinine (0.6-1.3) mg/dl Est Cr Clr Drug Dosing Est GFR ( Amer) Est GFR (Non-Af Amer) BUN/Creatinine Ratio (10-20) Glucose (70-99) mg/dl POC Glucose (other) (70-99) mg/dl Osmolality (280-300) mOsm/kg Lactate (0.4-2.0) mmol/L Calcium (8.5-10.1) mg/dl POC Ioniz Calcium Elizabeth (1.12-1.32) mmol/l Phosphorus (2.5-4.9) mg/dl Magnesium (1.8-2.4) mg/dl Total Bilirubin (0.2-1) mg/dl Direct Bilirubin (0-0.2) mg/dl AST (15-37) U/L ALT (12-78) U/L Alkaline Phosphatase (45-117) U/L Total Creatine Kinase (26-192) U/L Troponin I (0-0.045) ng/ml Total Protein (6.4-8.2) gm/dl Albumin (3.4-5.0) gm/dl Globulin (2.5-4.0) gm/dl Albumin/Globulin Ratio (0.9-2) Lipase 78442 H (73-393) U/L Urine Color Urine Appearance (Clear) Urine pH (4.5-7.5) Ur Specific [place] (1.000-1.030) Urine Protein (Negative) Urine Glucose (UA) (Negative) Urine Ketones (Negative) Urine Blood (Negative) Urine Nitrite (Negative) Urine Bilirubin (Negative) Urine Urobilinogen (Negative) Ur Leukocyte Esterase (Negative) Urine WBC (Auto) (0-5) /hpf Urine RBC (Auto) (0-4) /hpf U Hyaline Cast (Auto) (0-5) /lpf U Epithel Cells (Auto) (0-5) /lpf Urine Bacteria (Auto) (Negative) Ur Renal Epithelial Cell (0-5) /lpf Amorphous Sediment (None Prsent) Urine Yeast Ethyl Alcohol mg/dL 228.2 H (0-3) mg/dl Blood Type Antibody Screen 09/21/18 09/21/18 09/21/18 Range/Units 17:23 17:33 18:45 WBC (4.8-10.8) K/uL RBC (4.2-5.4) M/uL Hgb (12.0-16.0) g/dL POC Hgb 11.9 L (12.0-16.0) g/dl Hct (37-47) % POC Hct 35 L (37-47) % MCV (80-100) fL MCH (25-34) pg MCHC (32-36) g/dL RDW Std Deviation (36.4-46.3) fL RDW Coeff of Chetan (11.5-14.5) % Plt Count (130-400) K/uL MPV (7.4-10.4) fL Immature Gran % (Auto) % Neut % (Auto) % Lymph % (Auto) % White % (Auto) % Eos % (Auto) % Baso % (Auto) % Immature Gran # (Auto) (0.00-0.02) K/uL Neut # (Auto) (1.4-6.5) K/uL Lymph # (Auto) (1.2-3.4) K/uL White # (Auto) (0.11-0.59) K/uL Eos # (Auto) (0-0.5) K/uL Baso # (Auto) (0-0.2) K/uL Absolute Nucleated RBC (0-0) K/uL Nucleated RBC % (auto) % Hypochromasia Anisocytosis [place] Bodies Echinocytes PT (9.0-12.0) Seconds INR (0.9-1.1) APTT (21.0-31.0) Seconds PTT Ratio VBG pH (7.36-7.41) VBG pCO2 (38-50) mmHg VBG pO2 mmHg VBG HCO3 mmol/L VBG O2 Saturation % VBG Base Excess mEq/L Barometric Pressure mm/Hg POC Sodium 142 (135-144) mEq/L Sodium (136-145) mmol/L POC Potassium 2.9 L (3.3-5.0) mEq/L Potassium (3.5-5.1) mmol/L POC Chloride 108 (101-112) mEq/L Chloride (98-107) mmol/L Carbon Dioxide (21-32) mmol/L POC Total CO2 9 L* (24-31) mEq/l Anion Gap (3-11) POC Anion Gap 29.0 H (16-25) mmol/L POC BUN 31 H (7-18) mg/dl BUN (7-18) mg/dl Creatinine (0.6-1.2) mg/dl POC Creatinine 1.9 H (0.6-1.3) mg/dl Est Cr Clr Drug Dosing Est GFR ( Amer) Est GFR (Non-Af Amer) BUN/Creatinine Ratio (10-20) Glucose (70-99) mg/dl POC Glucose (other) 69 L* (70-99) mg/dl Osmolality (280-300) mOsm/kg Lactate (0.4-2.0) mmol/L Calcium (8.5-10.1) mg/dl POC Ioniz Calcium [place] 0.97 L (1.12-1.32) mmol/l Phosphorus (2.5-4.9) mg/dl Magnesium (1.8-2.4) mg/dl Total Bilirubin (0.2-1) mg/dl Direct Bilirubin (0-0.2) mg/dl AST (15-37) U/L ALT (12-78) U/L Alkaline Phosphatase (45-117) U/L Total Creatine Kinase (26-192) U/L Troponin I (0-0.045) ng/ml Total Protein (6.4-8.2) gm/dl Albumin (3.4-5.0) gm/dl Globulin (2.5-4.0) gm/dl Albumin/Globulin Ratio (0.9-2) Lipase (73-393) U/L Urine Color Dark Yellow Urine Appearance Cloudy A (Clear) Urine pH 5.0 (4.5-7.5) Ur Specific [place] 1.020 (1.000-1.030) Urine Protein 2+ H (Negative) Urine Glucose (UA) Negative (Negative) Urine Ketones 2+ H (Negative) Urine Blood 3+ H (Negative) Urine Nitrite Positive A (Negative) Urine Bilirubin Negative (Negative) Urine Urobilinogen Negative (Negative) Ur Leukocyte Esterase Trace H (Negative) Urine WBC (Auto) 10-30 H (0-5) /hpf Urine RBC (Auto) 0-4 (0-4) /hpf U Hyaline Cast (Auto) 1-5 (0-5) /lpf U Epithel Cells (Auto) >30 H (0-5) /lpf Urine Bacteria (Auto) Negative (Negative) Ur Renal Epithelial Cell 0-5 (0-5) /lpf Amorphous Sediment Present A (None Prsent) Urine Yeast Not Reportable Ethyl Alcohol mg/dL (0-3) mg/dl Blood Type A Positive Antibody Screen NEGATIVE Imaging Data Radiologist's Impression: Radiology results as stated below per my review and the radiologist's interpretation: SINGLE VIEW CHEST CLINICAL HISTORY: Fall. FINDINGS: An AP, portable, upright chest radiograph is compared to study dated 06/27/2018 and correlated with chest CT performed the same day 09/21/2018. The examination is degraded by portable technique and patient rotation. The heart is enlarged. The pulmonary vasculature is noncongested. There are low lung volumes and bibasilar atelectasis. No airspace consolidation or pleural effusion is identified. No pneumothorax is seen. The skeletal structures are osteopenic. There are healed bilateral rib fractures. Gas is noted around the right shoulder. Surgical clips are noted in the upper abdomen. IMPRESSION: 1. Cardiac enlargement with no radiographic evidence of congestive failure. 2. Low lung volumes with no airspace consolidation or pleural effusion. Electronically signed by: Herbie Reese M.D. 09/21/2018 8:22 PM LEFT HUMERUS 2 VIEWS CLINICAL HISTORY: Fall. FINDINGS: AP and lateral views of the left humerus are compared to study dated 05/11/2016. The skeletal structures are osteopenic. There is no radiographic evidence of left humeral fracture. The shoulder and elbow joints appear maintained. The overlying soft tissues are normal in appearance. An IV catheter is present in the antecubital fossa. IMPRESSION: There is no radiographic evidence of left humeral fracture. Electronically signed by: Herbie Reese M.D. 09/21/2018 8:19 PM LEFT TIBIA AND FIBULA 2 VIEWS CLINICAL HISTORY: Fall with left leg pain. FINDINGS: AP and lateral views of the left tibia and fibula are compared to study dated 11/30/2014. The skeletal structures are osteopenic. No acute f racture is identified. There is chronic posttraumatic deformity of the proximal tibia and fibula. A buttress plate is present along the medial aspect of the proximal tibia. The orthopedic hardware appears intact. The knee and ankle joints are grossly maintained. The overlying soft tissues are normal as imaged. IMPRESSION: There is no radiographic evidence of acute fracture involving the left tibia or fibula. Electronically signed by: Herbie Reese M.D. 09/21/2018 8:38 PM RIGHT FEMUR 2 VIEWS CLINICAL HISTORY: Fall. Right leg pain. FINDINGS: AP and crosstable lateral views of the right femur are correlated with right hip radiographs dated 11/28/[address] performed the same day 09/21/2018. The skeletal structures are osteopenic. There is no radiographic evidence of right femoral fracture. The visualized right hemipelvis appears intact. Degenerative joint space narrowing is present in the right hip. The right knee joint is grossly maintained. A catheter is present within the proximal tibia. The soft tissues of the thigh are normal as imaged. A pain pump device projects over the right upper pelvis. There are numerous pelvic phleboliths. IMPRESSION: Osteopenia with no radiographic evidence of right femoral fracture. Electronically signed by: Herbie Reese M.D. 09/21/2018 8:[address] SCAN OF THE ABDOMEN AND PELVIS WITHOUT IV CONTRAST CLINICAL HISTORY: Fall. COMPARISON STUDY: Abdominal CT dated 06/23/2018. TECHNIQUE: CT scan of the abdomen and pelvis is performed from the lung bases to the proximal femora. Images are reviewed in the axial, sagittal, and coronal planes. IV contrast was not administered for this examination as per the referring clinician. Note that the examination was performed in significantly suboptimal fashion without oral and IV contrast in the setting of trauma. The examination is also degraded by streak artifact from the right arm which could not be elevated above the abdomen. A dose lowering technique was utilized adhering to the principles of ALARA. CT DOSE: 1446.37 mGy.cm FINDINGS: Lung bases: The heart is normal in size and without pericardial effusion. There is bibasilar scarring/atelectasis. No airspace consolidation, pleural effusion, or pneumothorax is seen at the lung bases. There are scattered calcified gra nulomas. Liver: The unenhanced liver is cirrhotic in morphology. The liver demonstrates heterogeneously diminished attenuation consistent with severe hepatic steatosis. There is nodularity of the surface contour and hypertrophy of the left lobe and caudate. There is no intrahepatic biliary ductal dilatation. Gallbladder: Surgically absent noting clips in the gallbladder fossa. Spleen: Normal in size and attenuation. Pancreas: There is perinephric stranding and trace peripancreatic fluid. The appearance suggests pancreatitis. No peripancreatic fluid collection is identified. Adrenal glands: Nodularity of the adrenal glands is similar to previous. Kidneys: The unenhanced kidneys demonstrate mild cortical atrophy and are without hydronephrosis. There is a 4 mm nonobstructing calculus in the lower pole of the left kidney. No right renal calculi are identified. There is no evidence of contour deforming renal mass lesion. Abdominal vasculature: The abdominal aorta is normal in course and caliber. Stomach and bowel: There is a tiny hiatal hernia. There is evidence of partial gastric resection. There is evidence of ileocecal resection with ileocolic anastomosis. No bowel obstruction is identified. Question underdistention versus mild wall thickening of the right colon. The appendix is not identified and presumed surgically absent. Peritoneum: There is no intraperitoneal free air or abdominal ascites. Lymphadenopathy: None. Pelvic viscera: The bladder is grossly unremarkable. A Dial catheter is located within the vagina. The uterus is surgically absent. No adnexal lesion is seen. Skeletal structures: The skeletal structures are osteopenic. No acute fracture is clearly identified. Chronic posttraumatic deformity and postoperative change is noted in the left hip. There is chronic posttraumatic deformity of the left pubic ring. There is a chronic nonunited right transverse process fracture of L3. There are healed bilateral rib fractures. There are mild superior endplate compression deformities of L1, L3, L4, and L5. These are unchanged from previous, as is chronic posttraumatic deformity of the sacrum. No lytic or blastic lesion is seen. A neurostimulator device is present within the right ventral abdominal wall. Leads extend into the posterior soft tissues in the mid lumbar region. No intrathecal component of the catheter is identified. IMPRESSION: 1. Suboptimal examination without oral and IV contrast. 2. There is no evidence of solid organ injury in the abdomen or pelvis on this unenhanced examination. 3. A Dial catheter is located within the vagina. Repositioning is indicated. 4. Findings suggest acute pancreatitis. Correlation with clinical findings and serum amylase/lipase levels is recommended. 5. There is evidence of cirrhosis and severe steatosis of the liver. 6. Left-sided nephrolithiasis. 7. Underdistention versus wall thickening is noted in the right colon. This may represent portal colopathy. Correlate clinically for evidence of a mild colitis. 8. Numerous chronic fractures as above. No acute fracture is clearly seen. 9. Additional findings as above. Electronically signed by: Herbie Reese M.D. 09/21/2018 6:[address] DOSE: HISTORY: Pain, fall, 48hr downtime TECHNIQUE: Multiaxial CT images of the cervical spine were performed and reformatted in the sagittal and coronal plane without the use of contrast. A dose lowering technique was utilized adhering to the principles of ALARA. COMPARISON: Cervical spine CT 10/02/2017. FINDINGS: No acute fractures. No subluxation. Prevertebral soft tissues and the C1-C2 interval are intact. No pneumothorax. Posterior fusion defect at C1. Exaggeration of the lordotic curvature. Mild anterior wedging at C7, unchanged. This is consistent with an old compression deformity. IMPRESSION: No change compared to the prior study. No acute fractures within the cervical spine. Electronically signed by: Brennen King M.D. 09/21/2018 5:[address] chest wo con CT DOSE: HISTORY: Pain, fall, 48hr downtime TECHNIQUE: Multiaxial CT images of the chest were performed without contrast. A dose lowering technique was utilized adhering to the principles of ALARA. COMPARISON: Chest CTA 04/12/2018. FINDINGS: Multiple old, healed bilateral rib fractures. No acute fractures identified within the chest. Gas within the glenohumeral joint. There is also a catheter tip abutting the humeral head. Hepatic steatosis. Cholecystectomy. Postoperative changes within the stomach. This is better appreciated on the same day abdomen and pelvis CT. Normal caliber thoracic aorta. The heart is normal in size. No mediastinal or hilar lymphadenopathy. Mild thickening within the distal esophagus which has slightly improved. No mediastinal hematoma. No pleural or pericardial effusions. No pneumothorax. Mild respiratory motion artifact. The central airways are patent. Punctate calcified granuloma within the right middle lobe. Otherwise, the lungs are clear. IMPRESSION: 1. No acute traumatic process within the chest. 2. Gas and a catheter tip within the right glenohumeral joint. This may be related to recent postoperative change. Clinical correlation recommended. 3. Old posttraumatic changes as described above. Electronically signed by: Brennen King M.D. 09/21/2018 6:[address] SCAN OF THE BRAIN WITHOUT IV CONTRAST CLINICAL HISTORY: Fall. COMPARISON STUDY: CT of the brain dated 06/24/2018. TECHNIQUE: Unenhanced axial CT scan of the brain is performed from the vertex to the skull base. A dose lowering technique was utilized adhering to the principles of ALARA. FINDINGS: Brain parenchyma: The brain parenchyma is normal in appearance. There is no hemorrhage, mass effect, or evidence of acute territorial ischemia by CT cri teria. Sanchez-white matter differentiation is preserved. No extra-axial fluid collection is seen. Ventricles, sulci, cisterns: Normal in configuration. Intracranial vasculature: There is mild atherosclerotic calcification of the cavernous carotid and vertebral arteries. Calvarium: There is no depressed calvarial fracture. Sinuses and mastoids: The paranasal sinuses are clear. The mastoid air cells are well pneumatized. Orbits: The bony orbits are grossly intact. IMPRESSION: No acute intracranial abnormality. Electronically signed by: Herbie Reese M.D. 09/21/2018 5:50 PM ECG Data Attestation: I personally reviewed and interpreted this ECG as follows: Indication: chest pain Rate (beats per minute): 99 Rhythm: sinus rhythm Findings: + other (QTC of 536, PA 154) Blood Pressure Blood Pressure Findings: Low blood pressure Blood Pressure Disposition: further management by hospitalist BISI Narrative The patient is a 53-year-old woman with a past medical history of alcohol abuse with prior admissions for renal failure with metabolic acidosis related to her etoh abuse, etoh cirrhosis, etoh pancreatitis who presents emergency department after being found down in her home where she reports she had been on the ground for approximately 72 hours per hpi. Patient denies SI or attempts at self harm. Patient had difficult IV access in the field and had a failed attempt at a right humeral IO but had a right tibial IO placed with fluids running. On arrival patient is ill-appearing but mentating and in no acute distress, hypothermic to 34.8 with blood pressure 80s/60s and heart rate in the 100s. 20-gauge PIV is placed in bilateral ACs under ultrasound guidance per procedure note. The patient appears clinically dry. She has diffuse/generalized body pain. She has mild ecchymosis to the left clavicle, right breast and bilateral pretibial areas. She has a 5 cm superficial ulcer/skin tear of her lower lumbar/sacral region. There is no overt hardening of muscular compartments of the extremities back or gluteal muscles. EKG demonstrates increased QTC but otherwise no acute ischemia. WBC within normal limits. H/H 10/34.6 which is improved from prior. Platelets 106 also within patient's prior range of values in the setting of her alcohol abuse. Chemistry with severe acidosis with bicarb of 8 and anion gap of 31 with pH on VBG of 7.09. Lactate is 2.9 and so acidosis likely has component of alcoholic use of ketoacidosis. Creatinine is 1.9 which is new from recent. CPK 1400. Troponin negative. EtOH 228. CT of the head, C-spine, chest, abdomen pelvis negative for acute traumatic findings. There is question of colitis as well as pancreatitis. Lipase 20K. Patient treated with warmed IVF including Banana bag and additional IV thiamine, D5NS for likely component of Etoh ketoacidosis, Sodium bicarb gtt for severe acidosis/acidemia and rhabdomyolysis. Patient ordered for empiric antibiotics with Zosyn and Vancomycin given hypothermic, tachycardic, possible urinary source with pancreatitis and renal failure. Patient frequently re-evaluated was clinically improving with BP 100-130s/60-80s. Case was discussed with Luzmaria Suarez, [facility] PAC, who evaluate the patient for admission. Case additionally reviewed with Dr. Navarro, ICU director of outreach, on behalf of admitting team for possibility of ICU admission. Impression & Plan Rhabdomyolysis, Acute kidney injury, UTI (urinary tract infection), Acidemia, Alcoholic ketoacidosis, Hypotension, Acute pancreatitis, Metabolic acidosis, Hypokalemia Critical Care Time Critical Care Time: Yes Total Critical Care Time: 90 I have personally spent 90 minutes of critical care time in the direct management of this patient. This includes bedside care, interpretation of diagnostic studies, and testing, discussion with consultants, patient, and family members, and other required patient management activities. This 90 minutes is in excess of all separately billable procedures. Discharge Plan Visit Data *Final* Discharge Date/Time: 09/21/18 20:33 Chief Complaint: Fall Stated Complaint: HYPOTENSION, FALL, ED Provider: Glen Alves Discharge Problem: Rhabdomyolysis, Acute kidney injury, UTI (urinary tract infection), Acidemia, Alcoholic ketoacidosis, Hypotension, Acute pancreatitis, Metabolic acidosis, Hypokalemia Patient Disposition: Admitted As Inpatient Discharge Instructions Interventions: ED Discharge Assessment Last Done: 09/21/18 20:33 The scribe's documentation has been prepared under my direction and personally reviewed by me in its entirety. I confirm that the note above accurately reflects all work, treatment, procedures, and medical decision making performed by me.
[2018-09-21] MEDS ORDERED: LORazepam 0.5 MG/1 ML VIAL IV STA (19:02)
[2018-09-21] MEDS ORDERED: HYDROmorphone INJ 0.5 MG/0.5 ML SYR IV STA (19:03)
[2018-09-21 19:15] LABS: Appearance Urine Cloudy (Clear); Bacteria Urine Automated Negative (Negative); Blood Urine 3+ (Negative); Color Urine Dark Yellow; Epithelial Cell Urine Auto >30 /lpf (0-5); Glucose Urine UA Negative (Negative); Ketones Urine 2+ (Negative); Leukocyte Esterase Urine Trace (Negative); Nitrite Urine Positive (Negative); Protein Urine 2+ (Negative); Urobilinogen Urine Negative (Negative)
[2018-09-21] MEDS ORDERED: LORazepam 2 MG/4 ML VIAL ONE (19:15)
[2018-09-21] MEDS ORDERED: HYDROmorphone INJ 0.5 MG/0.5 ML SYR ONE (19:15)
[2018-09-21 19:17] LABS: Bilirubin Urine Negative (Negative); Ictotest Urine Negative (Negative)
[2018-09-21 19:39] LABS: Amorphous Sediment Urine Present (None Prsent); RBC Urine Automated 0-4 /hpf (0-4); Renal Epithelial Cells Urine 0-5 /lpf (0-5)
--- NOTE | 2018-09-21 20:20 | XRay Report ---
LEFT HUMERUS 2 VIEWS CLINICAL HISTORY: Fall. FINDINGS: AP and lateral views of the left humerus are compared to study dated 05/11/2016. The skeleta l structures are osteopenic. There is no radiographic evidence of left humeral fracture. The shoulder and elbow joints appear maintained. The overlying soft tissues are normal in appearance. An IV erika ter is present in the antecubital fossa. IMPRESSION: There is no radiographic evidence of left humeral fracture. Electronically signed by: Herbie Reese M.D. 09/21/2018 8:19 PM
--- NOTE | 2018-09-21 20:23 | XRay Report ---
SINGLE VIEW CHEST CLINICAL HISTORY: Fall. FINDINGS: An AP, portable, upright chest radiograph is compared to study dated 06/27/2018 and correlat ed with chest CT performed the same day 09/21/2018. The examination is degraded by portable technique a nd patient rotation. The heart is enlarged. The pulmonary vasculature is noncongested. There are lo w lung volumes and bibasilar atelectasis. No airspace consolidation or pleural effusion is identified . No pneumothorax is seen. The skeletal structures are osteopenic. There are healed bilateral rib fra ctures. Gas is noted around the right shoulder. Surgical clips are noted in the upper abdomen. IMPRESSION: 1. Cardiac enlargement with no radiographic evidence of congestive failure. 2. Low lung volumes with no airspace consolidation or pleural effusion. Electronically signed by: Herbie Reese M.D. 09/21/2018 8:22 PM
--- NOTE | 2018-09-21 20:40 | XRay Report ---
LEFT TIBIA AND FIBULA 2 VIEWS CLINICAL HISTORY: Fall with left leg pain. FINDINGS: AP and lateral views of the left tibia and fibula are compared to study dated 11/30/2014. T he skeletal structures are osteopenic. No acute fracture is identified. There is chronic posttraumati c deformity of the proximal tibia and fibula. A buttress plate is present along the medial aspect of the proximal tibia. The orthopedic hardware appears intact. The knee and ankle joints are grossly sheree ntained. The overlying soft tissues are normal as imaged. IMPRESSION: There is no radiographic evidence of acute fracture involving the left tibia or fibula. Electronically signed by: Herbie Reese M.D. 09/21/2018 8:38 PM
--- NOTE | 2018-09-21 20:52 | XRay Report ---
RIGHT FEMUR 2 VIEWS CLINICAL HISTORY: Fall. Right leg pain. FINDINGS: AP and crosstable lateral views of the right femur are correlated with right hip radiograph s dated 11/28/[address] performed the same day 09/21/2018. The skeletal structures are osteope rosie. There is no radiographic evidence of right femoral fracture. The visualized right hemipelvis irma ears intact. Degenerative joint space narrowing is present in the right hip. The right knee joint is grossly maintained. A catheter is present within the proximal tibia. The soft tissues of the thigh ar e normal as imaged. A pain pump device projects over the right upper pelvis. There are numerous pelvi c phleboliths. IMPRESSION: Osteopenia with no radiographic evidence of right femoral fracture. Electronically signed by: Herbie Reese M.D. 09/21/2018 8:51 PM
--- NOTE | 2018-09-21 20:54 | XRay Report ---
LEFT FEMUR 2 VIEWS CLINICAL HISTORY: Fall. Left leg pain. FINDINGS: AP and crosstable lateral views of the left femur are correlated with left hip radiographs dated 05/31/[address] performed the same day 09/21/2018. The skeletal structures are osteopenic . There is chronic posttraumatic deformity of the left proximal femur with intertrochanteric and intr amedullary nails in place. The orthopedic hardware appears intact. There is moderate degenerative enoc nt space narrowing involving the left hip. Protrusio acetabuli is noted. There is chronic posttraumat ic deformity of the left pubic ring. No acute fracture is identified. The left knee joint is grossly maintained. There is chronic posttraumatic deformity of the proximal tibia and fibula. Postoperative change is noted in the left tibia. The soft tissues of the thigh are normal as imaged. Phleboliths ar e observed in the pelvis. IMPRESSION: Osteopenia and chronic/postoperative changes as above. There is no radiographic evidence of acute left femoral fracture. Electronically signed by: Herbie Reese M.D. 09/21/2018 8:53 PM
--- NOTE | 2018-09-21 21:01 | XRay Report ---
RIGHT TIBIA AND FIBULA 2 VIEWS CLINICAL HISTORY: Fall. Right leg pain. FINDINGS: AP and lateral views of the right tibia and fibula are obtained. No prior studies are avail able for comparison at the time of dictation. The skeletal structures are osteopenic. There is no rad iographic evidence of right tibial or fibular fracture. The knee and ankle joints are grossly maintai cristian. An indeterminant catheter is present within the proximal tibia from an anterior approach. The ov erlying soft tissues are normal in appearance. IMPRESSION: 1. Osteopenia with no radiographic evidence of right tibial or fibular fracture. 2. An indeterminant catheter is present within the proximal tibia. Clinical correlation will be requi red. Electronically signed by: Herbie Reese M.D. 09/21/2018 9:00 PM
--- NOTE | 2018-09-21 21:03 | XRay Report ---
RIGHT HUMERUS 2 VIEWS CLINICAL HISTORY: Fall. Right arm pain. FINDINGS: AP and lateral views of the right humerus are obtained. Correlation is made with chest CT p erformed the same day 09/21/2018. The skeletal structures are osteopenic. There is no radiographic evid ence of right humeral fracture. The shoulder and elbow joints are grossly maintained. Gas is again se en within the right shoulder joint. The overlying soft tissues are otherwise normal as imaged. IV cat heter is present within the right antecubital fossa. IMPRESSION: 1. Osteopenia with no radiographic evidence of right humeral fracture. 2. Nonspecific gas is again seen within the right shoulder joint. Clinical correlation will be requir ed. Electronically signed by: Herbie Reese M.D. 09/21/2018 9:01 PM
[2018-09-21] MEDS ORDERED: ICU PROTOCOL FOR HYPERGLYCEMIA PRN ×2 (21:24→21:29)
[2018-09-21] MEDS ORDERED: PIPERACILL/TAZOBAC CONSULT ACTIVE PRN (21:24)
[2018-09-21] MEDS ORDERED: LORazepam 1 MG TAB PO PRN (21:34)
--- NOTE | 2018-09-21 21:56 | Critical Care Consultation ---
Date of Consultation September 21, 2018 Assessment & Plan (1) Admitted to intensive care unit: Reason Critically Ill: 53-year-old female with acute severe metabolic acidosis in the setting of alcoholic ketoacidosis, lactic acidosis, and rhabdomyolysis. NEURO - * CAM ICU: NEGATIVE * Alcohol Abuse: * Presents with EtOH of 228.2 mg/dL. * [facility] protocol in place. * Anticipate majority of patient's s/s to be directly related to heavy EtOH abuse. * Continue to encourage EtOH cessation. * Will add daily Folate/Thiamin. * Daily Banana bag. * Seizure Disorder: * Reported since childhood and unrelated to EtOH cessation. * Will monitor closely for any concerning s/s. * Continue home gabapentin dosing. * Patient recently on Tramadol - would advise against this 2/2 potential for lowering seizure threshold. * Pain: * Musculoskeletal in the setting of Rhabdo. * Will add Morphine PRN. * Likely to have pain s/p IO placement x2 (RIGHT humerus - failed; LEFT Tibia) * Monitor for s/s infection s/p placement. CARDIAC/VASCULAR - * Hypotensive: * Pressures in the 80s on arrival. * Likely 2/2 profound hypovolemia. * Responded well to IVF resuscitation. * Continue w/ IVF at this juncture. * Pressors if needed. * EKG: NSR w/ Prolonged QT when compared to 07/10/2018. No ST/T-wave changes. QTc 536ms. * Avoid QTc prolonging agents. * Anticipate this to improve as electrolyte derangements addressed. * Echo (04/13): EF 40-45% --> this had improved w/ initial echo on 04/10 w/ an EF of 20-25% * Monitor on telemetry. RESPIRATORY - * No h/o Respiratory disease. * Monitor closely for any concerning compensatory respiratory s/s in the metabolically acidotic patient. * Low threshold for intubation if s/s of impending respiratory failure. * Initial VB.09/47/8 --> will repeat in the AM. * Supplemental O2 PRN. GI/NUTRITION - * Pancreatitis: * Lipase >[address] findings suggestive of pancreatitis. * [place]'s Criteria: 0 on admission (with lack of LDH laboratory study). * Will repeat AM labs. * Trend over the next 48 hours of admission. * Patient w/ Dx of Chronic Pancreatitis requiring PO Creon daily. * Will add Creon back to daily Rx. * Consult GI. * Continue w/ liberal IVF resuscitation. * ??Colitis on CT: * Currently covered w/ Zosyn. * Will check stool studies. * Add C-diff * h/o Cirrhosis, Grade 1 Esophageal Varices s/p banding, s/p Jeffy-en-Y Sx w/ gastric ulcer at surgical junction: * Will monitor closely for any s/s of gastric/eso hemorrhage. * Intervene as needed. * Prophylaxis: Famotidine RENAL/LYTES - * High anion gap metabolic acidosis: * Patient had presented similarly in June of 2018. * Likely 2/2 EtOH Ketoacidosis w/ Lactic acidosis. * Consider toxic alcohol ingestion --> will check Osms. * Consider addition of Fomepizole pending repeat labs. * Will send out reference Methyl/Ethanol. * With the luxury of hindsight, the patient had previously been on Fomepizole during prior admission but was quickly discontinued after she had rapid improvement of s/s. * Would consider urine crystal analysis, but unavailable at this institution. * Will add Fomepizole if she is noted to have a large osmolar gap on repeat labs w/o improvement on BiCarb gtt. * Repeat labs show improvement of labs including closing gap, improving serum osms, improving lactic acidosis. Will hold on Fomepizole administration at this juncture. * Hypokalemia: * Likely 2/2 profound metabolic acidosis. * Will liberally replace, especially w/ the necessity of BiCarb gtt. * Continue to monitor Mag - replace as needed. * Hypocalcemia: * Replace as needed. * IVF: Bicarb gtt (150mEq) in sterile water @250 mL/hr. Will decrease rate pending labs. - * UTI: * Currently covered w/ Zosyn * Dial in place - Strict I&Os. ENDO - * No h/o DM or thyroid Dz * BSGs per unit protocol. ISS --> gtt per unit policy. HEME - * Thrombocytopenia: * Likely 2/2 bone marrow suppression in the chronic alcoholic. * Will trend. * Plt administration if <20K or <50K w/ s/s of bleeding. * h/o Acute Blood loss anemia: * Anticipate patient to be hemoconcentrated on presentation 2/2 hypovolemia. * Type and Screen pending. * Transfuse as needed. * Will Guaiac all stools. * Monitor for s/s bleeding. ID - * UTI: * Initially receive Zosyn/Vanc in the ED. * Vanc d/c - MRSA negative. * Patient w/ h/o Bacteremia and Fungemia. * Do not suspect Fungemia at this point. * Will await blood cultures, however. * Will add AM ProCal * Trend Lactate. * Trend fever curve. LINES/IV ACCESS - * PIVs x3 * RIGHT Brachial 18g Endurance Catheter * s/p RIGHT Humeral and LEFT Tibial IOs - both removed. * Dial DVT PROPHYLAXIS - * Hold on chemoprophylaxis in the setting of recent trauma, thrombocytopenia, and risk for dilutional anemia. May add anticoagulation tomorrow AM pending tonights progress. * SCDs I have personally spent 60 minutes of critical care time in the direct management of this patient. This is a life/limb threatening event. This includes time spent evaluating patient, direct bedside care, chart review, placing orders, interpretation of diagnostic studies, discussion with consultants, patient, and family members, as well as other required patient management activities. This time is exclusive of all separately billable procedures, and teaching time and separate from and in addition to any other critical care service time. Thank you for allowing us to participate in the care of this patient. Please refer to my attending physician's documentation for any further recommendations. (2) Metabolic acidosis: (3) Hypokalemia: (4) Alcoholic ketoacidosis: (5) Hypotension: (6) Acute pancreatitis: (7) Acidemia: (8) UTI (urinary tract infection): (9) Acute kidney injury: (10) Rhabdomyolysis: (11) Pancreatitis: (12) Alcoholic cirrhosis: Supervising Physician Co-Signing Physician Notes Discussed with CORWIN and chart reviewed electronically last night. Seen and examined this morning. Agree with assessment and plan as noted in CORWIN's note. 53-year-old female with history of alcohol abuse presenting with acidosis and multiple electrolyte abnormalities. Work-up revealed this to be most likely alcoholic ketosis. She is responded well to bicarb infusion. Mental status is improved. She initially presented hypotensive and hypothermic both of which have corrected. Continue supportive care. Will assess for transfer to the floor and the hospitalist service later today. History of Present Illness Attending Physician: Elana Carr DO History of Present Illness Patient is a 53-year-old female with a significant past medical history of alcoholism, alcoholic cirrhosis, chronic pancreatitis, esophageal varices, gastric ulcers, status post Jeffy-en-Y, seizure disorder, and chronic pain syndrome. She reports a fall while using her walker and walking to her kitchen. This occurred 2 days ago. She was attempting to crawl to the bedroom, but was unsuccessful doing so. The patient does drink vodka daily. She was found by her significant other and EMS crew to be laying on the floor of her apartment. Empty vodka and gin bottles were found beside her. She complained of generalized pain and was felt to be confused. Upon arrival in the emergency department, the patient was found to be in significant metabolic acidosis felt to be related to heavy alcohol use. Trauma scan of the head and cervical spine were found to be unremarkable. CT of the chest was without significant finding. CT of the abdomen pelvis was concerning for acute pancreatitis. Concern for possible colitis on CT as well. She was hypotensive on presentation which did respond to IV fluid boluses. She received IV Zosyn and vancomycin for prophylactic antibiotics. She was started on bicarb drip as she was found to be significantly metabolically acidotic. Medical alcohol was found to be 228.2. She was hypokalemic with potassium of 2.9. She received 1, 10 mEq K rider in the emergency department. Upon arrival in the ICU, the patient is awake, alert, and oriented. She complains of diffuse pain throughout her muscles. She states that she was unable to collect herself on the ground after her fall and had no phone close by to call. She does admit to drinking vodka but reports that she does not keep track of how much she drinks. She states that she did not drink an effort to try and kill herself. She is adamant that she did not drink any other forms of alcohol or other substances. She reports a history of seizure disorder for which she takes gabapentin daily. This has been since childhood. She reports history of withdrawal symptoms, but states that this does not include new seizures unrelated to her baseline disease process. She states that she has been drinking heavily since an accident 3 years ago. She has quit drinking, but only during hospitalizations. She denies any other substance use. Patient currently denies any headaches, blurry vision, slurred speech, facial droop, unilateral weakness/numbness, chest pain, palpitations, pleuritic pain, recent upper respiratory infections, vomiting, hematochezia, melena, hematuria, or dysuria. Allergies Allergy/AdvReac Type Severity Reaction Status Date / Time diphenhydramine Allergy Severe seizures/it Verified 09/21/18 17:17 mya/tremo rs bupropion Allergy Intermediate Palpitation Verified 09/21/18 17:17 s clarithromycin Allergy Intermediate HIVES Verified 09/21/18 17:17 aspirin Allergy Mild hives/ringing Verified 09/21/18 17:17 of ears oxaprozin Allergy Mild nausea/vomi Verified 09/21/18 17:17 ting salicylates Allergy Mild ringing in Verified 09/21/18 17:17 ears/hives tramadol Allergy Mild hives/upset Verified 09/21/18 17:17 stomach Home Medications Home Medications Medication Instructions Recorded Confirmed Type Creon 1 cap PO TIDM #90 cap 07/04/18 09/21/18 Rx magnesium oxide 800 mg PO HS #15 tab 07/04/18 09/21/18 Rx pantoprazole 40 mg PO BID #60 tab 07/04/18 09/21/18 Rx thiamine HCl (vitamin B1) [Vitamin 100 mg PO QAM #30 tab 07/04/18 09/21/18 Rx B-1] tramadol 50 mg PO Q6H PRN #14 tab 07/11/18 09/21/18 Rx Centrum Silver 1 tab PO QAM 08/08/18 09/21/18 History calcium carbonate-vitamin D3 1 tab PO BID 08/08/18 09/21/18 History [Calcium 500 With D] citalopram [Celexa] 10 mg PO QAM 08/08/18 09/21/18 History gabapentin 300 mg PO TID 08/08/18 09/21/18 History hydroxyzine HCl 25 - 50 mg PO BID PRN 08/08/18 09/21/18 History multivitamin with minerals 3 tab PO QAM 08/08/18 09/21/18 History [Hair,Skin and Nails] omeprazole 20 mg PO QAM 08/08/18 09/21/18 History folic acid 1 mg PO DAILY 09/21/18 09/21/18 History loperamide 2 mg PO Q6 PRN 09/21/18 09/21/18 History meloxicam 7.5 mg PO BID PRN 09/21/18 09/21/18 History ondansetron 4 mg TRANSLINGUAL Q8 09/21/18 09/21/18 History sucralfate [Carafate] 1 g PO ACHS 09/21/18 09/21/18 History Patient History Medical History Lumbago (Chronic) Multiple sclerosis (Chronic) Alcohol abuse Anxiety Cirrhosis Degenerative disc disease Esophageal varices with banding Factitious disorder Fibromyalgia Opiate addiction Pancreatitis Presence of intrathecal pump containing morphine 0.189mg/day and fentanyl 2.52mcg/day miminimal rate per pt "it doesnt work I haven't been able to afford the medication for 3 years now"?? Sedative abuse Seizures None for greater than a year Surgical History History of Jeffy-en-Y gastric bypass History of cholecystectomy History of colonoscopy History of esophagogastroduodenoscopy (EGD) History of open reduction and internal fixation (ORIF) procedure left arm/left leg--hardware in place History of tooth extraction all teeth removed History of total hysterectomy with bilateral salpingo-oophorectomy (BSO) Family History Other Aneurysm Cancer No family history of adverse response to anesthesia Stroke Social History Preferred Language: Divehi Communication Ability: Effective [employer] Required: No Beliefs That Will Affect Care: None marital status: Current Living Situation: Alone Other Information That Helps Us Care for You: No Feels Safe at Home: Yes Safety Concerns: Feels Safe At This Time Smoking Status: Former smoker Smoking End Date: not sure ; Second Hand Exp osure: Yes ; Tobacco Cessation Education Requested by Patient: No Hx Alcohol Use: Yes Alcohol type: hard liquor Hx Substance Use: No Review of Systems Review of Systems: A complete 10 point review of systems was reviewed with the patient with pertinent positives and negatives as per history of present illness. All else were negative. Physical Exam Physical Exam: VITAL SIGNS - Vital signs and nursing notes were reviewed. GENERAL - 53-year-old female appearing her stated age who is in no acute distress. Slow to communicate, but answers questions appropriately. SKIN - Multiple bruises noted throughout the torso and extremities. HEAD - NC/AT. EYES - PERRL with EOMI bilaterally. Sclera anicteric. Palpebral conjunctiva pink and moist with no injection noted. EARS - No deformities of external structures noted on gross examination bilaterally. NOSE - Midline and without cyanosis. No epistaxis or purulent drainage noted. Septum midline without deviation or septal hematoma noted. MOUTH/OROPHARYNX - Without perioral cyanosis. Buccal mucosa pink and moist and without leukoplakia. Tongue midline with equal elevation of palate bilaterally. NECK - Neck with FROM. Supple to palpation. No nuchal rigidity. LUNGS - Chest wall symmetric without accessory muscle use, intercostals retractions, or central cyanosis. Normal vesicular breath sounds CTA B/L. No wheezes, rales, or rhonchi appreciated. CARDIAC - RRR with S1/S2. No murmur, rubs, or gallops appreciated. ABDOMEN - Abdominal contour flat without pulsations or visible masses. BS normoactive all four quadrants. No tenderness, palpable masses, hepatosplenomegaly, or ascites noted. EXTREMITIES - No clubbing or peripheral cyanosis. No pretibial edema present. +3/5 radial, posterior tibial, and dorsalis pedis pulses palpated throughout. +4/5 strength noted in UE/LE bilaterally. NEUROLOGIC - Cranial nerves II through XII grossly intact. Sensory intact to light touch throughout. Patellar reflexes +2/4. PSYCH - A&Ox3 and cooperates fully with examiner. Pt is very pleasant and interacts well with examiner. Results & Data Vital Signs (Past 12 Hours) Vital Signs Temp Pulse Pulse Resp BP BP Pulse Ox 09/21/18 21:26 36.6 C 95 H 16 137/80 100 09/21/18 20:30 110 H 16 114/70 100 09/21/18 20:09 106 H 18 123/75 100 09/21/18 19:30 105 H 21 112/73 100 09/21/18 19:18 112 H 22 123/79 100 09/21/18 19:06 127 H 19 135/86 100 09/21/18 19:00 120 H 21 106/82 100 09/21/18 18:45 113 H 21 100 09/21/18 18:30 36.4 C L 109 H 20 113/56 L 100 09/21/18 18:20 105 H 18 110/67 95 09/21/18 18:15 100 H 18 100 09/21/18 18:03 101 H 16 100 09/21/18 18:01 81/53 L 100 09/21/18 17:30 94 H 21 09/21/18 17:15 93 H 20 09/21/18 17:00 93 H 19 09/21/18 16:45 94 H 18 100 09/21/18 16:42 34.8 C L 96 H 20 84/62 L 100 09/21/18 16:36 101 H 28 H 94/73 L 99 PG Care Time/CCT Total # of Minutes Spent Total Time Spent with Patient: Total time spent is greater than 50% in coordination of care (as documented) at patient's floor/unit and/or counseling patient: Critical Care Time: Yes Total Critical Care Time: 60 (1) UTI (urinary tract infection) Hematuria presence: without hematuria Urinary tract infection type: site unspecified Qualified Code(s): N39.0 - Urinary tract infection, site not specified (2) Rhabdomyolysis Rhabdomyolysis type: non-traumatic Qualified Code(s): M62.82 - Rhabdomyolysis (3) Hypotension Hypotension type: unspecified hypotension type Qualified Code(s): I95.9 - Hypotension, unspecified (4) Acute pancreatitis Acute pancreatitis complication: unspecified Pancreatitis type: alcohol induced Qualified Code(s): K85.20 - Alcohol induced acute pancreatitis without necrosis or infection
[2018-09-21] MEDS: POTASSIUM CHLORIDE / WTR 10 MEQ/100 ML PLCT IV SCH ×2 (22:19→23:22)
--- NOTE | 2018-09-21 22:32 | Procedure Note ---
Procedure Note Date of Service September 21, 2018 Procedure: Disk Grinder Indwelling Peripherally Inserted IV Catheter Placement Attending: Dr. Navarro APC: Bigg Peterson PA-C Indication: Need for IV Access, Poor Vascular Access Anesthesia: None Verbal consent was obtained from patient prior to performing the procedure. A time-out was completed verifying correct patient, procedure, site, positioning, and implant(s) or special equipment if applicable. Utilizing bedside ultrasound, vascularity of the RIGHT upper extremity was assessed. Vesse l size was noted for appropriate catheter selection and skin was marked with gentle pressure. Patients RIGHT upper extremity was prepped and draped in the usual sterile fashion utilizing chlorhexidine. Ultrasound guidance was used to aid needle placement. An 18 g Endurance Catheter was introduced into the RIGHT Brachial vein under direct ultrasound guidance. Guide wire was easily deployed without resistance. Catheter was threaded over the guide wire without resistance and the entire apparatus was removed intact. Good venous blood return was noted in the catheter. The IV catheter was easily flushed with sterile saline flush. Sterile clave was attached to the end of the catheter and good blood return was again noted. Tourniquet was released. StatLock device and sterile dressing were applied. The patient tolerated the procedure well. Blood Loss: Minimal Complications: None Procedural Ultrasound Guidance: Procedure Date: 09/21/2018 Indication: Poor Vascular Access Attending: Dr. Navarro APC: Bigg Peterson PA-C Artery/Veins Identified: YES Access confirmed in Vein with ultrasound: YES Complications: NONE Patient tolerated procedure: WELL Coding CPT Codes Tubes, Drains, and Vasc Access - Tubes, Drains, and Vasc Access: Venipuncture, Age 2/>Req physician skill, (sep proc), Dx/Tx (not rout) ([id number])
[2018-09-21 22:43] LABS: Hematocrit (blood only) 28.3 % (37-47); Hemoglobin 8.3 g/dL (12.0-16.0)
[2018-09-21 22:49] LABS: BUN Creatinine Ratio 27.9 (10-20); Calcium 6.6 mg/dl (8.5-10.1); Creatinine Clr Calc Pharmacy 54.1 ml/min; Est GFR (African American) 68.2; Est GFR (Non-African American) 58.8; Potassium 2.6 mmol/L (3.5-5.1)
[2018-09-21] MEDS: MoRPHine SULFATE 2 MG/ML CARP IV PRN (23:07)
[2018-09-21] MEDS: CALCIUM GLUCONATE 10% 1,000 MG in SODIUM CHLORIDE 0.9% 50 ML IV ONE (23:22)
[2018-09-21 23:55] LABS: Amphetamines+Metham, Urine Neg (Neg); Barbiturates, Urine Neg (Neg); Benzodiazepine, Urine Neg (Neg); Cocaine, Urine Neg (Neg); MDMA (Ecstacy), Urine Neg (Neg); Methadone, Urine Neg (Neg); Opiate, Urine Neg (Neg); Phencyclidine, Urine Neg (Neg)
[2018-09-22] MEDS: SODIUM BICARBONATE 8.4% 150 MEQ in WATER, STERILE 1,000 ML IV SCH ×2 (00:06→05:10)
[2018-09-22] MEDS: PIPERACILLIN/TAZOBACTAM 3.375 GM in DEXTROSE 5% 100 ML IV SCH ×2 (00:06→07:46)
[2018-09-22] MEDS: CALCIUM GLUCONATE 10% 1,000 MG in SODIUM CHLORIDE 0.9% 50 ML IV ONE (00:39)
[2018-09-22] MEDS: POTASSIUM CHLORIDE / WTR 10 MEQ/100 ML PLCT IV SCH ×6 (00:42→08:52)
[2018-09-22] MEDS: MoRPHine SULFATE 2 MG/ML CARP IV PRN ×3 (02:01→07:45)
[2018-09-22 04:10] LABS: Base Excess VBG -2.5 mEq/L; HCO3 VBG 22 mmol/L; Oxygen Saturation VBG 73.7 %; PCO2 VBG 37 mmHg (38-50); PO2 VBG 41 mmHg; pH VBG 7.39 (7.36-7.41)
[2018-09-22 04:18] LABS: INR 1.3 (0.9-1.1); Partial Thromboplastin Ratio 0.9; Partial Thromboplastin Time 25.2 Seconds (21.0-31.0); Prothrombin Time 12.9 Seconds (9.0-12.0)
[2018-09-22 04:28] LABS: Albumin Level 3.1 gm/dl (3.4-5.0); BUN Creatinine Ratio 28.6 (10-20); Calcium 6.5 mg/dl (8.5-10.1); Creatinine Clr Calc Pharmacy 67.3 ml/min; Est GFR (African American) 88.8; Est GFR (Non-African American) 76.6; Magnesium 1.5 mg/dl (1.8-2.4); Potassium 2.8 mmol/L (3.5-5.1)
[2018-09-22 04:43] LABS: Bilirubin Direct 1.2 mg/dl (0-0.2); Bilirubin,Total 1.9 mg/dl (0.2-1); Phosphorus 1.3 mg/dl (2.5-4.9); Total Protein 5.8 gm/dl (6.4-8.2)
[2018-09-22 04:47] LABS: Anisocytosis Present; Basophilic Stippling 1+; Hematocrit (blood only) 25.1 % (37-47); Hemoglobin 7.5 g/dL (12.0-16.0); Hypochromasia Present; Lymphocytes # (auto) 0.16 K/uL (1.2-3.4); Lymphocytes % (auto) 5.4 %; Mean Corpuscular Hgb Conc 29.9 g/dL (32-36); Mean Corpuscular Volume 76.3 fL (80-100); Mean Platelet Volume 8.2 fL (7.4-10.4); Monocytes # (auto) 0.21 K/uL (0.11-0.59); Monocytes % (auto) 7.1 %; Neutrophils % (auto) 87.5 %; Pappenheimer Bodies 1+; Platelet Count 30 K/uL (130-400); Platelet Estimate SIGNIFIC DECREASED (Normal); RDW Coefficient of Variation 21.5 % (11.5-14.5); RDW Standard Deviation 59.9 fL (36.4-46.3); Red Blood Count 3.29 M/uL (4.2-5.4); Target Cells 1+; White Blood Count 2.97 K/uL (4.8-10.8)
[2018-09-22] MEDS ORDERED: MAGNESIUM SULFATE / D5W 1 GM/100 ML BAG IV ONE (05:00)
[2018-09-22] MEDS ORDERED: SODIUM CHLORIDE 0.9% 250 ML IV PRN (05:15)
[2018-09-22] MEDS: NORMOSOL-R 1,000 ML IV SCH ×3 (05:25→21:05)
[2018-09-22] MEDS ORDERED: FAMOTIDINE 20 MG in SYRINGE 3 ML IV SCH (06:00)
[2018-09-22] MEDS ORDERED: SODIUM CHLORIDE IV SCH (07:00)
[2018-09-22] MEDS ORDERED: MULTI VITAMIN INFUSION IV SCH (07:00)
--- NOTE | 2018-09-22 07:56 | Critical Care Progress Note ---
Date of Service September 22, 2018 Assessment & Plan (1) Admitted to intensive care unit: Reason Critically Ill: 53-year-old female with acute severe metabolic acidosis in the setting of alcoholic ketoacidosis, lactic acidosis, and rhabdomyolysis. NEURO - * CAM ICU: NEGATIVE * Alcohol Abuse: * Initial EtOH 228 * CIWA protocol in place, PRN IV Ativan * Continue to encourage EtOH cessation. * Continue folate, thiamine, multivitamin * Seizure Disorder: * Reported since childhood and unrelated to EtOH cessation. * Will monitor closely for any concerning s/s. * Continue home gabapentin dosing. * Hold tramadol as it would lower seizure threshold during withdrawal phase * Pain: * Musculoskeletal in the setting of Rhabdo. * IV morphine switched to as needed oxycodone * Had diagnosed right humerus and left tibia, now DC'd, monitor for s/s infection s/p placement. CARDIAC/VASCULAR - * Hypotensive: * Now hemodynamically stable without need for pressors at this time * We will continue IV fluid resuscitation * EKG: NSR w/ Prolonged QT when compared to 07/10/2018. No ST/T-wave changes. QTc 536ms. * Avoid QTc prolonging agents. * Anticipate this to improve as electrolyte derangements addressed. * Echo (04/13): EF 40-45% --> this had improved w/ initial echo on 04/10 w/ an EF of 20-25% * Monitor on telemetry. RESPIRATORY - * No h/o Respiratory disease. * Patient initially tachypneic to compensate for metabolic acidosis, now that metabolic acidosis has resolved patient breathing GI/NUTRITION - * Pancreatitis: * Lipase >[id number] findings suggestive of pancreatitis, downtrending, will trend * Diane's Criteria: 0 on admission (with lack of LDH laboratory study). * Patient w/ Dx of Chronic Pancreatitis requiring PO Creon daily, will continue * GI consulted, follow-up recommendation * Continue IV fluids * ??Colitis on CT: * Zosyn discontinued * Will check stool studies. * C. difficile negative * h/o Cirrhosis, Grade 1 Esophageal Varices s/p banding, s/p [id number]-[id number] Sx w/ gastric ulcer at surgical junction: * Will monitor closely for any s/s of gastric/eso hemorrhage. * Intervene as needed. * Prophylaxis: Famotidine RENAL/LYTES - * High anion gap metabolic acidosis: * Patient had presented similarly in June of 2018. * Likely 2/2 EtOH Ketoacidosis w/ Lactic acidosis. * Consider toxic alcohol ingestion --> serum osmolality elevated * Methyl/panel sent out for reference lab, results pending. * pH now corrected and bicarb drip discontinued * Hypokalemia: * Will routinely check and replete as necessary * Hypocalcemia: * Replace as needed. * IVF: Continue Normosol at 150 mL/h - * UTI: * Zosyn DC'd, Rocephin added * Dial in place - Strict I&Os. ENDO - * No h/o DM or thyroid Dz * BSGs per unit protocol. ISS --> gtt per unit policy. HEME - * Pancytopenia: * Likely 2/2 bone marrow suppression in the chronic alcoholic. * Transfused with 1 unit RBCs this a.m. * Trending platelet count and will transfuse if <20K or <50K w/ s/s of bleeding. * Will monitor with routine CBCs and treat as necessary ID - * UTI: * Cultures pending * Antibiotics narrowed to Rocephin * A.m. procalcitonin negative * Lactate negative * Patient remains afebrile LINES/IV ACCESS - * PIVs x3 * RIGHT Brachial 18g Endurance Catheter * s/p RIGHT Humeral and LEFT Tibial IOs - both removed. * Dial DVT PROPHYLAXIS - * Hold on chemoprophylaxis in the setting of recent trauma, thrombocytopenia, and risk for dilutional anemia. May add anticoagulation tomorrow AM pending tonights progress. * SCDs I have personally spent 40 minutes of critical care time in the direct management of this patient. This is a life/limb threatening event. This includes time spent evaluating patient, direct bedside care, chart review, placing orders, interpretation of diagnostic studies, discussion with consultants, patient, and family members, as well as other required patient management activities. This time is exclusive of all separately billable procedures, and teaching time and separate from and in addition to any other critical care service time. Thank you for allowing us to participate in the care of this patient. Please refer to my attending physician's documentation for any further recommendations. (2) Metabolic acidosis: (3) Hypokalemia: (4) Alcoholic ketoacidosis: (5) Hypotension: (6) Acute pancreatitis: (7) Acidemia: (8) UTI (urinary tract infection): (9) Acute kidney injury: (10) Rhabdomyolysis: (11) Pancreatitis: (12) Alcoholic cirrhosis: Supervising Physician Co-Signing Physician Notes Seen and examined this morning. EMR reviewed. Appropriate radiographic studies were reviewed. Discussed on multidisciplinary rounds. The patient appears to be clinically improving. Her electrolytes are continuing to be corrected. Bicarb drip is off. She continues on antibiotics for a urinary tract infection. Her CPKs are decreasing. Dose Ativan in place for alcohol withdrawal as well as some pain control myalgias. Advancing diet as tolerated. If she does well, will likely be able to get her up out of bed later today and work on physical therapy and Occupational Therapy. She may be eligible to transfer to floor today or tomorrow depending on her response to therapy. Discussed with patient at bedside. Subjective Ms. gutierres is a 53-year-old female with past medical history of cirrhosis, alcohol abuse that was found down at her home intoxicated. Estimates that she had been down for approximately 2 days at this point. She was taken to the ED where she was found to have a metabolic acidosis, rhabdomyolysis/lactate acidosis. pH is now been corrected with bicarb drip which is now off and fluid resuscitation. Patient remains hemodynamically stable without need for vasopressors. However, patient remains pancytopenic and has severe electrolyte imbalances. She was transfused with 1 unit RBCs this a.m. and repleted for potassium, phosphorus, magnesium, and calcium deficiencies. Platelets remain low, will transfuse if indicated. Also considering that patient has history of varices and gastric ulcers. Patient will remain in ICU for this a.m., may be stable for transfer to telemetry this afternoon. Review of Systems Review of Systems: All systems reviewed & are unremarkable except as noted in HPI & below Patient describes abdominal pain in the right upper quadrant with palpation. Patient denies headache, nausea vomiting, dizziness, syncope, chest pain, palpitations, shortness of breath, diarrhea, extremity weakness. Physical Exam Eyes: PERRL, conjunctivae normal, anicteric sclerae ENMT: external ear and nose normal, oropharynx normal Neck: trachea midline, no thyromegaly Respiratory: normal respiratory effort, lungs clear to auscultation Cardiovascular: RRR, no murmur, no edema Heart Sounds: normal S1 and normal S2 Vessels: no JVD Gastrointestinal (Abdomen): Inspection/Auscultation: + abdomen distended and normal bowel sounds Percussion/Palpation: + abdomen tender Skin: no rashes, warm and dry Neurologic: PERRL, EOMI, accommodation nl, no face palsy, no dysarthria Psychiatric: Orientation: alert, oriented to person and oriented to place Results & Data Vital Signs (Past 12 Hours) Vital Signs Temp Pulse Pulse Resp BP BP Pulse Ox 09/22/18 06:45 37.4 C 92 H 19 147/85 H 97 09/22/18 06:30 102 H 17 148/86 H 97 09/22/18 06:19 37.2 C 109 H 19 137/74 96 09/22/18 06:00 93 H 19 137/74 94 09/22/18 05:30 91 H 20 136/72 96 09/22/18 05:00 109 H 18 134/79 95 09/22/18 04:30 106 H 28 H 127/69 92 09/22/18 04:00 91 H 19 127/73 99 09/22/18 03:30 94 H 19 129/73 98 09/22/18 03:00 92 H 20 127/72 99 09/22/18 02:30 101 H 22 145/69 H 100 09/22/18 02:00 95 H 19 134/70 97 09/22/18 01:30 100 H 18 135/73 98 09/22/18 01:00 98 H 19 132/74 95 09/22/18 00:30 96 H 18 138/81 98 09/22/18 00:00 36.4 C L 98 H 18 148/86 H 99 09/21/18 23:30 94 H 17 140/89 100 09/21/18 23:00 104 H 23 137/85 100 09/21/18 22:30 104 H 17 139/84 100 09/21/18 22:00 99 H 18 142/82 H 100 09/21/18 21:30 98 H 19 137/80 100 09/21/18 21:26 36.6 C 95 H 16 137/80 100 09/21/18 21:24 96 H 09/21/18 21:08 99 H 19 137/80 100 09/21/18 21:06 104 H 21 09/21/18 20:30 110 H 16 114/70 100 09/21/18 20:09 106 H 18 123/75 100 Laboratory Results Laboratory Results - last 24 hr 09/21/18 09/21/18 09/21/18 17:04 17:04 17:04 WBC 6.67 RBC 4.44 Hgb 10.0 L POC Hgb Hct 34.6 L POC Hct MCV 77.9 L MCH 22.5 L MCHC 28.9 L RDW Std Deviation 63.5 H RDW Coeff of Chetan 22.3 H Plt Count 106 L MPV 9.6 Immature Gran % (Auto) 0.3 Neut % (Auto) 89.5 Lymph % (Auto) 4.5 Otero % (Auto) 5.4 Eos % (Auto) 0.0 Baso % (Auto) 0.3 Immature Gran # (Auto) 0.02 Neut # (Auto) 5.97 Lymph # (Auto) 0.30 L Otero # (Auto) 0.36 Eos # (Auto) 0.00 Baso # (Auto) 0.02 Absolute Nucleated RBC 0.05 H Nucleated RBC % (auto) 0.7 Platelet Estimate Hypochromasia Present Basophilic Stippling Anisocytosis Present Pappenheimer Bodies Target Cells Joseph[place] Bodies Occasional Echinocytes 1+ PT 10.9 INR 1.1 APTT 26.2 PTT Ratio 1.0 VBG pH VBG pCO2 VBG pO2 VBG HCO3 VBG O2 Saturation VBG Base Excess Barometric Pressure POC Sodium Sodium 143 POC Potassium Potassium 2.9 L POC Chloride Chloride 104 Carbon Dioxide 8 L* POC Total CO2 Anion Gap 31.0 H POC Anion Gap POC BUN BUN 34 H Creatinine 1.67 H POC Creatinine Est Cr Clr Drug Dosing Not Reportable Est GFR ( Amer) 39.8 Est GFR (Non-Af Amer) 34.3 BUN/Creatinine Ratio 20.6 H Glucose 70 POC Glucose POC Glucose (other) Osmolality Lactate Calcium 7.9 L POC Ioniz Calcium Elizabeth Phosphorus Magnesium Total Bilirubin 2.2 H Direct Bilirubin AST 190 H ALT 74 Alkaline Phosphatase 171 H Lactate Dehydrogenase Total Creatine Kinase 1420 H Troponin I Total Protein 8.1 Albumin 4.4 Globulin 3.7 Albumin/Globulin Ratio 1.2 Lipase Folate Procalcitonin Urine Color Urine Appearance Urine pH Ur Specific [place] Urine Protein Urine Glucose (UA) Urine Ketones Urine Blood Urine Nitrite Urine Bilirubin Urine Urobilinogen Ur Leukocyte Esterase Urine WBC (Auto) Urine RBC (Auto) U Hyaline Cast (Auto) U Epithel Cells (Auto) Urine Bacteria (Auto) Ur Renal Epithelial Cell Amorphous Sediment Urine Yeast Urine Osmolality Nasal Screen MRSA (PCR) Stool Occult Bld Scrn Stl C. diff Tox B Gene Urine Opiates Screen Ur Methadone, Qual Urine Barbiturates Ur Phencyclidine (PCP) U Amphetamin/Meth Scrn MDMA (Ecstasy) Screen U Benzodiazepines Scrn Ur Cocaine Metabolite U Marijuana (THC) Screen Ethylene Glycol Ethyl Alcohol mg/dL Methyl Alcohol Level Blood Type Antibody Screen Crossmatch 09/21/18 09/21/18 09/21/18 17:04 17:04 17:04 WBC RBC Hgb POC Hgb Hct POC Hct MCV MCH MCHC RDW Std Deviation RDW Coeff of Chetan Plt Count MPV Immature Gran % (Auto) Neut % (Auto) Lymph % (Auto) Otero % (Auto) Eos % (Auto) Baso % (Auto) Immature Gran # (Auto) Neut # (Auto) Lymph # (Auto) Otero # (Auto) Eos # (Auto) Baso # (Auto) Absolute Nucleated RBC Nucleated RBC % (auto) Platelet Estimate Hypochromasia Basophilic Stippling Anisocytosis Pappenheimer Bodies Target Cells [place] Bodies Echinocytes PT INR APTT PTT Ratio VBG pH VBG pCO2 VBG pO2 VBG HCO3 VBG O2 Saturation VBG Base Excess Barometric Pressure POC Sodium Sodium POC Potassium Potassium POC Chloride Chloride Carbon Dioxide POC Total CO2 Anion Gap POC Anion Gap POC BUN BUN Creatinine POC Creatinine Est Cr Clr Drug Dosing Est GFR ( Amer) Est GFR (Non-Af Amer) BUN/Creatinine Ratio Glucose POC Glucose POC Glucose (other) Osmolality 381 H* Lactate 2.9 H* Calcium POC Ioniz Calcium Elizabeth Phosphorus 5.2 H Magnesium 2.6 H Total Bilirubin Direct Bilirubin 1.5 H AST ALT Alkaline Phosphatase Lactate Dehydrogenase Total Creatine Kinase Troponin I < 0.015 Total Protein Albumin Globulin Albumin/Globulin Ratio Lipase Folate Procalcitonin Urine Color Urine Appearance Urine pH Ur Specific [place] Urine Protein Urine Glucose (UA) Urine Ketones Urine Blood Urine Nitrite Urine Bilirubin Urine Urobilinogen Ur Leukocyte Esterase Urine WBC (Auto) Urine RBC (Auto) U Hyaline Cast (Auto) U Epithel Cells (Auto) Urine Bacteria (Auto) Ur Renal Epithelial Cell Amorphous Sediment Urine Yeast Urine Osmolality Nasal Screen MRSA (PCR) Stool Occult Bld Scrn Stl C. diff Tox B Gene Urine Opiates Screen Ur Methadone, Qual Urine Barbiturates Ur Phencyclidine (PCP) U Amphetamin/Meth Scrn MDMA (Ecstasy) Screen U Benzodiazepines Scrn Ur Cocaine Metabolite U Marijuana (THC) Screen Ethylene Glycol Ethyl Alcohol mg/dL Methyl Alcohol Level Blood Type Antibody Screen Crossmatch 09/21/18 09/21/18 09/21/18 17:04 17:04 17:04 WBC RBC Hgb POC Hgb Hct POC Hct MCV MCH MCHC RDW Std Deviation RDW Coeff of Chetan Plt Count MPV Immature Gran % (Auto) Neut % (Auto) Lymph % (Auto) Otero % (Auto) Eos % (Auto) Baso % (Auto) Immature Gran # (Auto) Neut # (Auto) Lymph # (Auto) Otero # (Auto) Eos # (Auto) Baso # (Auto) Absolute Nucleated RBC Nucleated RBC % (auto) Platelet Estimate Hypochromasia Basophilic Stippling Anisocytosis Pappenheimer Bodies Target Cells [place] Bodies Echinocytes PT INR APTT PTT Ratio VBG pH 7.09 L VBG pCO2 27 L VBG pO2 47 VBG HCO3 8 VBG O2 Saturation 68.1 VBG Base Excess -20.6 Barometric Pressure 725.3 POC Sodium Sodium POC Potassium Potassium POC Chloride Chloride Carbon Dioxide POC Total CO2 Anion Gap POC Anion Gap POC BUN BUN Creatinine POC Creatinine Est Cr Clr Drug Dosing Est GFR ( Amer) Est GFR (Non-Af Amer) BUN/Creatinine Ratio Glucose POC Glucose POC Glucose (other) Osmolality Lactate Calcium POC Ioniz Calcium Elizabeth Phosphorus Magnesium Total Bilirubin Direct Bilirubin AST ALT Alkaline Phosphatase Lactate Dehydrogenase Total Creatine Kinase Troponin I Total Protein Albumin Globulin Albumin/Globulin Ratio Lipase 50719 H Folate Procalcitonin Urine Color Urine Appearance Urine pH Ur Specific [place] Urine Protein Urine Glucose (UA) Urine Ketones Urine Blood Urine Nitrite Urine Bilirubin Urine Urobilinogen Ur Leukocyte Esterase Urine WBC (Auto) Urine RBC (Auto) U Hyaline Cast (Auto) U Epithel Cells (Auto) Urine Bacteria (Auto) Ur Renal Epithelial Cell Amorphous Sediment Urine Yeast Urine Osmolality Nasal Screen MRSA (PCR) Stool Occult Bld Scrn Stl C. diff Tox B Gene Urine Opiates Screen Ur Methadone, Qual Urine Barbiturates Ur Phencyclidine (PCP) U Amphetamin/Meth Scrn MDMA (Ecstasy) Screen U Benzodiazepines Scrn Ur Cocaine Metabolite U Marijuana (THC) Screen Ethylene Glycol Ethyl Alcohol mg/dL 228.2 H Methyl Alcohol Level Blood Type Antibody Screen Crossmatch 09/21/18 09/21/18 09/21/18 17:23 17:33 18:45 WBC RBC Hgb POC Hgb 11.9 L Hct POC Hct 35 L MCV MCH MCHC RDW Std Deviation RDW Coeff of Chetan Plt Count MPV Immature Gran % (Auto) Neut % (Auto) Lymph % (Auto) Otero % (Auto) Eos % (Auto) Baso % (Auto) Immature Gran # (Auto) Neut # (Auto) Lymph # (Auto) Otero # (Auto) Eos # (Auto) Baso # (Auto) Absolute Nucleated RBC Nucleated RBC % (auto) Platelet Estimate Hypochromasia Basophilic Stippling Anisocytosis Pappenheimer Bodies Target Cells Jsoeph-[place] Bodies Echinocytes PT INR APTT PTT Ratio VBG pH VBG pCO2 VBG pO2 VBG HCO3 VBG O2 Saturation VBG Base Excess Barometric Pressure POC Sodium 142 Sodium POC Potassium 2.9 L Potassium POC Chloride 108 Chloride Carbon Dioxide POC Total CO2 9 L* Anion Gap POC Anion Gap 29.0 H POC BUN 31 H BUN Creatinine POC Creatinine 1.9 H Est Cr Clr Drug Dosing Est GFR ( Amer) Est GFR (Non-Af Amer) BUN/Creatinine Ratio Glucose POC Glucose POC Glucose (other) 69 L* Osmolality Lactate Calcium POC Ioniz Calcium Elizabeth 0.97 L Phosphorus Magnesium Total Bilirubin Direct Bilirubin AST ALT Alkaline Phosphatase Lactate Dehydrogenase Total Creatine Kinase Troponin I Total Protein Albumin Globulin Albumin/Globulin Ratio Lipase Folate Procalcitonin Urine Color Dark Yellow Urine Appearance Cloudy A Urine pH 5.0 Ur Specific [place] 1.020 Urine Protein 2+ H Urine Glucose (UA) Negative Urine Ketones 2+ H Urine Blood 3+ H Urine Nitrite Positive A Urine Bilirubin Negative Urine Urobilinogen Negative Ur Leukocyte Esterase Trace H Urine WBC (Auto) 10-30 H Urine RBC (Auto) 0-4 U Hyaline Cast (Auto) 1-5 U Epithel Cells (Auto) >30 H Urine Bacteria (Auto) Negative Ur Renal Epithelial Cell 0-5 Amorphous Sediment Present A Urine Yeast Not Reportable Urine Osmolality Nasal Screen MRSA (PCR) Stool Occult Bld Scrn Stl C. diff Tox B Gene Urine Opiates Screen Ur Methadone, Qual Urine Barbiturates Ur Phencyclidine (PCP) U Amphetamin/Meth Scrn MDMA (Ecstasy) Screen U Benzodiazepines Scrn Ur Cocaine Metabolite U Marijuana (THC) Screen Ethylene Glycol Ethyl Alcohol mg/dL Methyl Alcohol Level Blood Type A Positive Antibody Screen NEGATIVE Crossmatch See Detail 09/21/18 09/21/18 09/21/18 20:00 21:45 22:17 WBC RBC Hgb POC Hgb Hct POC Hct MCV MCH MCHC RDW Std Deviation RDW Coeff of Chetan Plt Count MPV Immature Gran % (Auto) Neut % (Auto) Lymph % (Auto) Otero % (Auto) Eos % (Auto) Baso % (Auto) Immature Gran # (Auto) Neut # (Auto) Lymph # (Auto) Otero # (Auto) Eos # (Auto) Baso # (Auto) Absolute Nucleated RBC Nucleated RBC % (auto) Platelet Estimate Hypochromasia Basophilic Stippling Anisocytosis Pappenheimer Bodies Target Cells [place] Bodies Echinocytes PT INR APTT PTT Ratio VBG pH VBG pCO2 VBG pO2 VBG HCO3 VBG O2 Saturation VBG Base Excess Barometric Pressure POC Sodium Sodium POC Potassium Potassium POC Chloride Chloride Carbon Dioxide POC Total CO2 Anion Gap POC Anion Gap POC BUN BUN Creatinine POC Creatinine Est Cr Clr Drug Dosing Est GFR ( Amer) Est GFR (Non-Af Amer) BUN/Creatinine Ratio Glucose POC Glucose 228 H POC Glucose (other) Osmolality Lactate Calcium POC Ioniz Calcium Elizabeth Phosphorus Magnesium Total Bilirubin Direct Bilirubin AST ALT Alkaline Phosphatase Lactate Dehydrogenase Total Creatine Kinase Troponin I Total Protein Albumin Globulin Albumin/Globulin Ratio Lipase Folate Procalcitonin Urine Color Urine Appearance Urine pH Ur Specific [place] Urine Protein Urine Glucose (UA) Urine Ketones Urine Blood Urine Nitrite Urine Bilirubin Urine Urobilinogen Ur Leukocyte Esterase Urine WBC (Auto) Urine RBC (Auto) U Hyaline Cast (Auto) U Epithel Cells (Auto) Urine Bacteria (Auto) Ur Renal Epithelial Cell Amorphous Sediment Urine Yeast Urine Osmolality Nasal Screen MRSA (PCR) Negative Stool Occult Bld Scrn Stl C. diff Tox B Gene Urine Opiates Screen Ur Methadone, Qual Urine Barbiturates Ur Phencyclidine (PCP) U Amphetamin/Meth Scrn MDMA (Ecstasy) Screen U Benzodiazepines Scrn Ur Cocaine Metabolite U Marijuana (THC) Screen Ethylene Glycol Pending Ethyl Alcohol mg/dL Methyl Alcohol Level Pending Blood Type Antibody Screen Crossmatch 08/10/0209/21/18 09/21/18 22:17 22:17 22:18 WBC RBC Hgb POC Hgb Hct POC Hct MCV MCH MCHC RDW Std Deviation RDW Coeff of Chetan Plt Count MPV Immature Gran % (Auto) Neut % (Auto) Lymph % (Auto) Otero % (Auto) Eos % (Auto) Baso % (Auto) Immature Gran # (Auto) Neut # (Auto) Lymph # (Auto) Otero # (Auto) Eos # (Auto) Baso # (Auto) Absolute Nucleated RBC Nucleated RBC % (auto) Platelet Estimate Hypochromasia Basophilic Stippling Anisocytosis Pappenheimer Bodies Target Cells [place] Bodies Echinocytes PT INR APTT PTT Ratio VBG pH VBG pCO2 VBG pO2 VBG HCO3 VBG O2 Saturation VBG Base Excess Barometric Pressure POC Sodium Sodium 142 POC Potassium Potassium 2.6 L POC Chloride Chloride 108 H Carbon Dioxide 15 L POC Total CO2 Anion Gap 19.0 H POC Anion Gap POC BUN BUN 30 H Creatinine 1.07 POC Creatinine Est Cr Clr Drug Dosing 54.1 Est GFR ( Amer) 68.2 Est GFR (Non-Af Amer) 58.8 BUN/Creatinine Ratio 27.9 H Glucose 244 H POC Glucose POC Glucose (other) Osmolality 347 H Lactate 2.1 H* Calcium 6.6 L D POC Ioniz Calcium Elizabeth Phosphorus Magnesium Total Bilirubin Direct Bilirubin AST ALT Alkaline Phosphatase Lactate Dehydrogenase Total Creatine Kinase Troponin I Total Protein Albumin Globulin Albumin/Globulin Ratio Lipase Folate Procalcitonin Urine Color Urine Appearance Urine pH Ur Specific [place] Urine Protein Urine Glucose (UA) Urine Ketones Urine Blood Urine Nitrite Urine Bilirubin Urine Urobilinogen Ur Leukocyte Esterase Urine WBC (Auto) Urine RBC (Auto) U Hyaline Cast (Auto) U Epithel Cells (Auto) Urine Bacteria (Auto) Ur Renal Epithelial Cell Amorphous Sediment Urine Yeast Urine Osmolality Nasal Screen MRSA (PCR) Stool Occult Bld Scrn Stl C. diff Tox B Gene Urine Opiates Screen Ur Methadone, Qual Urine Barbiturates Ur Phencyclidine (PCP) U Amphetamin/Meth Scrn MDMA (Ecstasy) Screen U Benzodiazepines Scrn Ur Cocaine Metabolite U Marijuana (THC) Screen Ethylene Glycol Ethyl Alcohol mg/dL Methyl Alcohol Level Blood Type Antibody Screen Crossmatch 09/21/18 09/21/18 09/21/18 22:18 22:19 23:00 WBC RBC Hgb 8.3 L POC Hgb Hct 28.3 L POC Hct MCV MCH MCHC RDW Std Deviation RDW Coeff of Chetan Plt Count MPV Immature Gran % (Auto) Neut % (Auto) Lymph % (Auto) Otero % (Auto) Eos % (Auto) Baso % (Auto) Immature Gran # (Auto) Neut # (Auto) Lymph # (Auto) Otero # (Auto) Eos # (Auto) Baso # (Auto) Absolute Nucleated RBC Nucleated RBC % (auto) Platelet Estimate Hypochromasia Basophilic Stippling Anisocytosis Pappenheimer Bodies Target Cells [place] Bodies Echinocytes PT INR APTT PTT Ratio VBG pH VBG pCO2 VBG pO2 VBG HCO3 VBG O2 Saturation VBG Base Excess Barometric Pressure POC Sodium Sodium POC Potassium Potassium POC Chloride Chloride Carbon Dioxide POC Total CO2 Anion Gap POC Anion Gap POC BUN BUN Creatinine POC Creatinine Est Cr Clr Drug Dosing Est GFR ( Amer) Est GFR (Non-Af Amer) BUN/Creatinine Ratio Glucose POC Glucose POC Glucose (other) Osmolality Lactate Calcium POC Ioniz Calcium Elizabeth Phosphorus Magnesium Total Bilirubin Direct Bilirubin AST ALT Alkaline Phosphatase Lactate Dehydrogenase Total Creatine Kinase Troponin I Total Protein Albumin Globulin Albumin/Globulin Ratio Lipase Folate > 24.00 Procalcitonin Urine Color Urine Appearance Urine pH Ur Specific [place] Urine Protein Urine Glucose (UA) Urine Ketones Urine Blood Urine Nitrite Urine Bilirubin Urine Urobilinogen Ur Leukocyte Esterase Urine WBC (Auto) Urine RBC (Auto) U Hyaline Cast (Auto) U Epithel Cells (Auto) Urine Bacteria (Auto) Ur Renal Epithelial Cell Amorphous Sediment Urine Yeast Urine Osmolality 453 L Nasal Screen MRSA (PCR) Stool Occult Bld Scrn Stl C. diff Tox B Gene Urine Opiates Screen Ur Methadone, Qual Urine Barbiturates Ur Phencyclidine (PCP) U Amphetamin/Meth Scrn MDMA (Ecstasy) Screen U Benzodiazepines Scrn Ur Cocaine Metabolite U Marijuana (THC) Screen Ethylene Glycol Ethyl Alcohol mg/dL Methyl Alcohol Level Blood Type Antibody Screen Crossmatch 09/21/18 09/22/18 09/22/18 23:00 02:00 02:00 WBC RBC Hgb POC Hgb Hct POC Hct MCV MCH MCHC RDW Std Deviation RDW Coeff of Chetan Plt Count MPV Immature Gran % (Auto) Neut % (Auto) Lymph % (Auto) Otero % (Auto) Eos % (Auto) Baso % (Auto) Immature Gran # (Auto) Neut # (Auto) Lymph # (Auto) Otero # (Auto) Eos # (Auto) Baso # (Auto) Absolute Nucleated RBC Nucleated RBC % (auto) Platelet Estimate Hypochromasia Basophilic Stippling Anisocytosis Pappenheimer Bodies Target Cells [place] Bodies Echinocytes PT INR APTT PTT Ratio VBG pH VBG pCO2 VBG pO2 VBG HCO3 VBG O2 Saturation VBG Base Excess Barometric Pressure POC Sodium Sodium POC Potassium Potassium POC Chloride Chloride Carbon Dioxide POC Total CO2 Anion Gap POC Anion Gap POC BUN BUN Creatinine POC Creatinine Est Cr Clr Drug Dosing Est GFR ( Amer) Est GFR (Non-Af Amer) BUN/Creatinine Ratio Glucose POC Glucose POC Glucose (other) Osmolality Lactate Calcium POC Ioniz Calcium Elizabeth Phosphorus Magnesium Total Bilirubin Direct Bilirubin AST ALT Alkaline Phosphatase Lactate Dehydrogenase Total Creatine Kinase Troponin I Total Protein Albumin Globulin Albumin/Globulin Ratio Lipase Folate Procalcitonin Urine Color Urine Appearance Urine pH Ur Specific [place] Urine Protein Urine Glucose (UA) Urine Ketones Urine Blood Urine Nitrite Urine Bilirubin Urine Urobilinogen Ur Leukocyte Esterase Urine WBC (Auto) Urine RBC (Auto) U Hyaline Cast (Auto) U Epithel Cells (Auto) Urine Bacteria (Auto) Ur Renal Epithelial Cell Amorphous Sediment Urine Yeast Urine Osmolality Nasal Screen MRSA (PCR) Stool Occult Bld Scrn Positive A Stl C. diff Tox B Gene Negative Cdiff Gene Urine Opiates Screen Neg Ur Methadone, Qual Neg Urine Barbiturates Neg Ur Phencyclidine (PCP) Neg U Amphetamin/Meth Scrn Neg MDMA (Ecstasy) Screen Neg U Benzodiazepines Scrn Neg Ur Cocaine Metabolite Neg U Marijuana (THC) Screen Neg Ethylene Glycol Ethyl Alcohol mg/dL Methyl Alcohol Level Blood Type Antibody Screen Crossmatch 09/22/18 09/22/18 09/22/18 03:52 03:52 03:52 WBC 2.97 L RBC 3.29 L Hgb 7.5 L POC Hgb Hct 25.1 L POC Hct MCV 76.3 L MCH 22.8 L MCHC 29.9 L RDW Std Deviation 59.9 H RDW Coeff of Chetan 21.5 H Plt Count 30 L D MPV 8.2 Immature Gran % (Auto) 0.0 Neut % (Auto) 87.5 Lymph % (Auto) 5.4 Otero % (Auto) 7.1 Eos % (Auto) 0.0 Baso % (Auto) 0.0 Immature Gran # (Auto) 0.00 Neut # (Auto) 2.60 Lymph # (Auto) 0.16 L Otero # (Auto) 0.21 Eos # (Auto) 0.00 Baso # (Auto) 0.00 Absolute Nucleated RBC Nucleated RBC % (auto) Platelet Estimate SIGNIFIC DECREASED Hypochromasia Present Basophilic Stippling 1+ Anisocytosis Present Pappenheimer Bodies 1+ Target Cells 1+ Joseph-[place] Bodies Echinocytes PT INR APTT PTT Ratio VBG pH 7.39 VBG pCO2 37 L VBG pO2 41 VBG HCO3 22 VBG O2 Saturation 73.7 VBG Base Excess -2.5 Barometric Pressure POC Sodium Sodium POC Potassium Potassium POC Chloride Chloride Carbon Dioxide POC Total CO2 Anion Gap POC Anion Gap POC BUN BUN Creatinine POC Creatinine Est Cr Clr Drug Dosing Est GFR ( Amer) Est GFR (Non-Af Amer) BUN/Creatinine Ratio Glucose POC Glucose POC Glucose (other) Osmolality Lactate 2.0 Calcium POC Ioniz Calcium Elizabeth Phosphorus Magnesium Total Bilirubin Direct Bilirubin AST ALT Alkaline Phosphatase Lactate Dehydrogenase Total Creatine Kinase Troponin I Total Protein Albumin Globulin Albumin/Globulin Ratio Lipase Folate Procalcitonin Urine Color Urine Appearance Urine pH Ur Specific [place] Urine Protein Urine Glucose (UA) Urine Ketones Urine Blood Urine Nitrite Urine Bilirubin Urine Urobilinogen Ur Leukocyte Esterase Urine WBC (Auto) Urine RBC (Auto) U Hyaline Cast (Auto) U Epithel Cells (Auto) Urine Bacteria (Auto) Ur Renal Epithelial Cell Amorphous Sediment Urine Yeast Urine Osmolality Nasal Screen MRSA (PCR) Stool Occult Bld Scrn Stl C. diff Tox B Gene Urine Opiates Screen Ur Methadone, Qual Urine Barbiturates Ur Phencyclidine (PCP) U Amphetamin/Meth Scrn MDMA (Ecstasy) Screen U Benzodiazepines Scrn Ur Cocaine Metabolite U Marijuana (THC) Screen Ethylene Glycol Ethyl Alcohol mg/dL Methyl Alcohol Level Blood Type Antibody Screen Crossmatch 09/22/18 09/22/18 09/22/18 03:52 03:52 03:52 WBC RBC Hgb POC Hgb Hct POC Hct MCV MCH MCHC RDW Std Deviation RDW Coeff of Chetan Plt Count MPV Immature Gran % (Auto) Neut % (Auto) Lymph % (Auto) Otero % (Auto) Eos % (Auto) Baso % (Auto) Immature Gran # (Auto) Neut # (Auto) Lymph # (Auto) Otero # (Auto) Eos # (Auto) Baso # (Auto) Absolute Nucleated RBC Nucleated RBC % (auto) Platelet Estimate Hypochromasia Basophilic Stippling Anisocytosis Pappenheimer Bodies Target Cells Joseph-[place] Bodies Echinocytes PT 12.9 H INR 1.3 H APTT 25.2 PTT Ratio 0.9 VBG pH VBG pCO2 VBG pO2 VBG HCO3 VBG O2 Saturation VBG Base Excess Barometric Pressure POC Sodium Sodium 140 POC Potassium Potassium 2.8 L POC Chloride Chloride 102 Carbon Dioxide 24 POC Total CO2 Anion Gap 14.0 H POC Anion Gap POC BUN BUN 25 H Creatinine 0.86 POC Creatinine Est Cr Clr Drug Dosing 67.3 Est GFR ( Amer) 88.8 Est GFR (Non-Af Amer) 76.6 BUN/Creatinine Ratio 28.6 H Glucose 108 H POC Glucose POC Glucose (other) Osmolality 310 H Lactate Calcium 6.5 L POC Ioniz Calcium Elizabeth Phosphorus 1.3 L* D Magnesium 1.5 L Total Bilirubin 1.9 H Direct Bilirubin 1.2 H AST 129 H ALT 53 Alkaline Phosphatase 120 H Lactate Dehydrogenase Total Creatine Kinase 1103 H Troponin I Total Protein 5.8 L D Albumin 3.1 L Globulin Albumin/Globulin Ratio Lipase 8679 H Folate Procalcitonin Urine Color Urine Appearance Urine pH Ur Specific [place] Urine Protein Urine Glucose (UA) Urine Ketones Urine Blood Urine Nitrite Urine Bilirubin Urine Urobilinogen Ur Leukocyte Esterase Urine WBC (Auto) Urine RBC (Auto) U Hyaline Cast (Auto) U Epithel Cells (Auto) Urine Bacteria (Auto) Ur Renal Epithelial Cell Amorphous Sediment Urine Yeast Urine Osmolality Nasal Screen MRSA (PCR) Stool Occult Bld Scrn Stl C. diff Tox B Gene Urine Opiates Screen Ur Methadone, Qual Urine Barbiturates Ur Phencyclidine (PCP) U Amphetamin/Meth Scrn MDMA (Ecstasy) Screen U Benzodiazepines Scrn Ur Cocaine Metabolite U Marijuana (THC) Screen Ethylene Glycol Ethyl Alcohol mg/dL Methyl Alcohol Level Blood Type Antibody Screen Crossmatch 09/22/18 09/22/18 09/22/18 03:52 03:52 03:52 WBC RBC Hgb POC Hgb Hct POC Hct MCV MCH MCHC RDW Std Deviation RDW Coeff of Chetan Plt Count MPV Immature Gran % (Auto) Neut % (Auto) Lymph % (Auto) Otero % (Auto) Eos % (Auto) Baso % (Auto) Immature Gran # (Auto) Neut # (Auto) Lymph # (Auto) Otero # (Auto) Eos # (Auto) Baso # (Auto) Absolute Nucleated RBC Nucleated RBC % (auto) Platelet Estimate Hypochromasia Basophilic Stippling Anisocytosis Pappenheimer Bodies Target Cells Joseph-[place] Bodies Echinocytes PT INR APTT PTT Ratio VBG pH VBG pCO2 VBG pO2 VBG HCO3 VBG O2 Saturation VBG Base Excess Barometric Pressure POC Sodium Sodium POC Potassium Potassium POC Chloride Chloride Carbon Dioxide POC Total CO2 Anion Gap POC Anion Gap POC BUN BUN Creatinine POC Creatinine Est Cr Clr Drug Dosing Est GFR ( Amer) Est GFR (Non-Af Amer) BUN/Creatinine Ratio Glucose POC Glucose POC Glucose (other) Osmolality Lactate Calcium POC Ioniz Calcium Elizabeth Phosphorus Magnesium Total Bilirubin Direct Bilirubin AST ALT Alkaline Phosphatase Lactate Dehydrogenase 253 H Total Creatine Kinase Troponin I Total Protein Albumin Globulin Albumin/Globulin Ratio Lipase Folate Procalcitonin 0.31 Urine Color Urine Appearance Urine pH Ur Specific [place] Urine Protein Urine Glucose (UA) Urine Ketones Urine Blood Urine Nitrite Urine Bilirubin Urine Urobilinogen Ur Leukocyte Esterase Urine WBC (Auto) Urine RBC (Auto) U Hyaline Cast (Auto) U Epithel Cells (Auto) Urine Bacteria (Auto) Ur Renal Epithelial Cell Amorphous Sediment Urine Yeast Urine Osmolality Nasal Screen MRSA (PCR) Stool Occult Bld Scrn Stl C. diff Tox B Gene Urine Opiates Screen Ur Methadone, Qual Urine Barbiturates Ur Phencyclidine (PCP) U Amphetamin/Meth Scrn MDMA (Ecstasy) Screen U Benzodiazepines Scrn Ur Cocaine Metabolite U Marijuana (THC) Screen Ethylene Glycol Ethyl Alcohol mg/dL 20.0 H Methyl Alcohol Level Blood Type Antibody Screen Crossmatch 09/22/18 09:24 WBC RBC Hgb POC Hgb Hct POC Hct MCV MCH MCHC RDW Std Deviation RDW Coeff of Chetan Plt Count MPV Immature Gran % (Auto) Neut % (Auto) Lymph % (Auto) Otero % (Auto) Eos % (Auto) Baso % (Auto) Immature Gran # (Auto) Neut # (Auto) Lymph # (Auto) Otero # (Auto) Eos # (Auto) Baso # (Auto) Absolute Nucleated RBC Nucleated RBC % (auto) Platelet Estimate Hypochromasia Basophilic Stippling Anisocytosis Pappenheimer Bodies Target Cells [place] Bodies Echinocytes PT INR APTT PTT Ratio VBG pH VBG pCO2 VBG pO2 VBG HCO3 VBG O2 Saturation VBG Base Excess Barometric Pressure POC Sodium Sodium POC Potassium Potassium POC Chloride Chloride Carbon Dioxide POC Total CO2 Anion Gap POC Anion Gap POC BUN BUN Creatinine POC Creatinine Est Cr Clr Drug Dosing Est GFR ( Amer) Est GFR (Non-Af Amer) BUN/Creatinine Ratio Glucose POC Glucose POC Glucose (other) Osmolality Lactate 1.0 Calcium POC Ioniz Calcium Elizabeth Phosphorus Magnesium Total Bilirubin Direct Bilirubin AST ALT Alkaline Phosphatase Lactate Dehydrogenase Total Creatine Kinase Troponin I Total Protein Albumin Globulin Albumin/Globulin Ratio Lipase Folate Procalcitonin Urine Color Urine Appearance Urine pH Ur Specific [place] Urine Protein Urine Glucose (UA) Urine Ketones Urine Blood Urine Nitrite Urine Bilirubin Urine Urobilinogen Ur Leukocyte Esterase Urine WBC (Auto) Urine RBC (Auto) U Hyaline Cast (Auto) U Epithel Cells (Auto) Urine Bacteria (Auto) Ur Renal Epithelial Cell Amorphous Sediment Urine Yeast Urine Osmolality Nasal Screen MRSA (PCR) Stool Occult Bld Scrn Stl C. diff Tox B Gene Urine Opiates Screen Ur Methadone, Qual Urine Barbiturates Ur Phencyclidine (PCP) U Amphetamin/Meth Scrn MDMA (Ecstasy) Screen U Benzodiazepines Scrn Ur Cocaine Metabolite U Marijuana (THC) Screen Ethylene Glycol Ethyl Alcohol mg/dL Methyl Alcohol Level Blood Type Antibody Screen Crossmatch Medications Administered Home Medications Creon 1 cap PO TIDM #90 cap 07/04/18 [Rx Confirmed 09/21/18] magnesium oxide 800 mg PO HS #15 tab 07/04/18 [Rx Confirmed 09/21/18] pantoprazole 40 mg PO BID #60 tab 07/04/18 [Rx Confirmed 09/21/18] thiamine HCl (vitamin B1) [Vitamin B-1] 100 mg PO QAM #30 tab 07/04/18 [Rx Confirmed 09/21/18] tramadol 50 mg PO Q6H PRN #14 tab 07/11/18 [Rx Confirmed 09/21/18] Centrum Silver 1 tab PO QAM 08/08/18 [History Confirmed 09/21/18] calcium carbonate-vitamin D3 [Calcium 500 With D] 1 tab PO BID 08/08/18 [History Confirmed 09/21/18] citalopram [Celexa] 10 mg PO QAM 08/08/18 [History Confirmed 09/21/18] gabapentin 300 mg PO TID 08/08/18 [History Confirmed 09/21/18] hydroxyzine HCl 25 - 50 mg PO BID PRN 08/08/18 [History Confirmed 09/21/18] multivitamin with minerals [Hair,Skin and Nails] 3 tab PO QAM 08/08/18 [History Confirmed 09/21/18] omeprazole 20 mg PO QAM 08/08/18 [History Confirmed 09/21/18] folic acid 1 mg PO DAILY 09/21/18 [History Confirmed 09/21/18] loperamide 2 mg PO Q6 PRN 09/21/18 [History Confirmed 09/21/18] meloxicam 7.5 mg PO BID PRN 09/21/18 [History Confirmed 09/21/18] ondansetron 4 mg TRANSLINGUAL Q8 09/21/18 [History Confirmed 09/21/18] sucralfate [Carafate] 1 g PO ACHS 09/21/18 [History Confirmed 09/21/18] Active Medications Folic Acid (F[facility]vite) [facility] [place] Stop: 10/22/18 08:59 Last Admin: 09/22/18 09:10 Dose: 1 mg Documented by: Sodium Chloride (Nss) 250 mls @ 15 mls/hr IV .[id number] PRN PRN Reason: For Transfusion Stop: 10/22/18 05:14 Parenteral Electrolytes (Normosol-R) 1,000 mls @ 150 mls/hr IV .[id number] MICHELLE Stop: 10/22/18 05:29 Last Infusion: 09/22/18 07:31 Dose: 150 mls/hr Documented by: Pantoprazole Sodium 40 mg/ (Syringe) 10 mls @ 5 mls/min IV BID@0900,2100 MICHELLE Stop: 10/22/18 08:59 Last Admin: 09/22/18 09:26 Dose: 5 mls/min Documented by: Lorazepam (Ativan) 1 mg in 2 mls @ 2 mls/min IV Q1H PRN; Protocol PRN Reason: Symptoms of alcohol withdrawal Stop: 10/22/18 09:44 Lorazepam (Ativan) 2 mg in 4 mls @ 4 mls/min IV Q1H PRN; Protocol PRN Reason: Symptoms of alcohol withdrawal Stop: 10/22/18 09:44 Lorazepam (Ativan) 3 mg in 6 mls @ 6 mls/min IV Q1H PRN; Protocol PRN Reason: Symptoms of alcohol withdrawal Ceftriaxone Sodium 1,000 mg/ (Dextrose) 60 mls @ 120 mls/hr IV Q24H [facility] Stop: 09/27/18 15:59 Miscellaneous (Icu Protocol For Hyperglycemia) 1 ea N/A PRN PRN; Protocol PRN Reason: Hyperglycemia Protocol Stop: 09/23/18 21:23 Multivitamins (Multivitamin Tab) 1 tab PO QAM [facility] Stop: 10/22/18 08:59 Last Admin: 09/22/18 09:11 Dose: 1 tab Documented by: Oxycodone HCl (Roxicodone Immediate Rel) 5 mg PO Q4H PRN PRN Reason: moderate Pain Stop: 10/06/18 09:39 Last Admin: 09/22/18 10:00 Dose: 5 mg Documented by: Potassium Chloride (Klor-Con M20) 40 meq PO TID [facility] Stop: 09/23/18 21:01 Last Admin: 09/22/18 09:10 Dose: 40 meq Documented by: Potassium Phosphate (Phospha 250 Neutral [id number] Mg) 2 tab PO BID [facility] Stop: 09/27/18 21:01 Last Admin: 09/22/18 11:28 Dose: 2 tab Documented by: Thiamine HCl (Vitamin B-1) 100 mg PO QAM [facility] Stop: 10/22/18 08:59 Last Admin: 09/22/18 09:10 Dose: 100 mg Documented by: PG Care Time/CCT Total # of Minutes Spent Total Time Spent with Patient: Total time spent is greater than 50% in coor dination of care (as documented) at patient's floor/unit and/or counseling patient: Critical Care Time: No Total Critical Care Time: 35 (1) UTI (urinary tract infection) Hematuria presence: without hematuria Urinary tract infection type: site unspecified Qualified Code(s): N39.0 - Urinary tract infection, site not specified (2) Rhabdomyolysis Rhabdomyolysis type: non-traumatic Qualified Code(s): M62.82 - Rhabdomyolysis (3) Hypotension Hypotension type: unspecified hypotension type Qualified Code(s): I95.9 - Hypotension, unspecified (4) Acute pancreatitis Acute pancreatitis complication: unspecified Pancreatitis type: alcohol induced Qualified Code(s): K85.20 - Alcohol induced acute pancreatitis without necrosis or infection
[2018-09-22] MEDS: MAGNESIUM SULFATE / D5W 1 GM/100 ML BAG IV SCH ×2 (08:41→09:47)
[2018-09-22] MEDS: CALCIUM GLUCONATE 10% 1,000 MG in SODIUM CHLORIDE 0.9% 50 ML IV SCH ×2 (08:52→09:09)
[2018-09-22] MEDS ORDERED: FOLIC ACID 1 MG in SYRINGE 9.8 ML IV SCH (09:00)
[2018-09-22] MEDS ORDERED: THIAMINE HCL 100 MG in SYRINGE 9 ML IV SCH (09:00)
--- NOTE | 2018-09-22 09:03 | Gastrointestinal Consultation ---
Date of Consultation September 22, 2018 Assessment & Plan (1) Rhabdomyolysis: (2) Acute kidney injury: (3) Acute pancreatitis: (4) Alcoholic ketoacidosis: Pt is a 53 y.o female w hx of gastric bypass, ETOH abuse & suspected ETOH cirrhosis; prior admissions for ETOH intoxication, ETOH hepatitis, pancreatitis. She was brought to hospital after found laying on floor by a friend. She had fallen and layed on floor x 2 days. Upon eval, found to be intoxicated w TYRONE, metabolic acidosis, rhabdomylosis, pancreatitis. Slightly worsening anemia and thrombocytopenia but no butch s/s of GI bleeding. MELD: 12 Maddrey's Discriminant Function: 6 - NPO except sips and chips - DC Famotidine, start Protonix 40mg IV BID - IVF w LR @150ml/hr - Electrolyte replacement per primary/ICU team - Defer repeat endosocopy unless s/s of GI bleeding - Discussed w pt about inpt rehab, ETOH cessation. She refused inpt rehab. - Will follow along Supervising Physician Co-Signing Physician Notes I have performed a history and physical examination of this patient and reviewed the electronic medical record. Specifically, on physical examination she is oriented X3, tremulous without asterixis. I have discussed the case with ELANA Gonzales. The above note reflects my findings, conclusions, and recommendations. Delano Gregory MD History of Present Illness Reason for Consultation: Pancreatitis Requesting Physician: Dr. Elana Carr Attending Physician: Dr. Gaurav Gregory History of Present Illness Pt is a 53 y/o female who was brought to hospital after found laying on floor by friend. She reported she had tripped over her walker and been laying on floor for 2 days. After fluid resuscitation, more alert. On eval found to be in TYRONE, having metabolic acidosis w several electrolyte derrangements, signs of rhabdomyolosis, [place] [id number] evidence of pancreatitis. She has hx of gastric bypass, ETOH abuse & suspected ETOH cirrhosis; prior 302 admissions for ETOH intoxication, ETOH hepatitis, pancreatitis. At last admission was having coffee ground emesis & rectal bleeding. EGD performed 07/05/18 which showed large varices on lower third of esophagus w red neville signs, banded x3. Gastrojejunal anastomosis stenosis, dilated to 15mm. Repeat dilation done 08/18/18 to 16.5mm. She continues to drink 2 glasses of Vodka a day. ETOH level on admission over 200. She refused inpt rehab. She currently is c/o "pain all over body". CT and xray showed no acute fractures. Noted chronic anemia and thrombocytopenia worse now 30K, but she denies any butch s/s of GI bleeding such as hematemesis, coffee ground emesis, BRBPR, black/tarry stools. Stools are heme positive but RN also reports no signs of butch GI bleeding. No n/v. Allergies Allergy/AdvReac Type Severity Reaction Status Date / Time diphenhydramine Allergy Severe seizures/it Verified 09/21/18 17:17 mya/tremo rs bupropion Allergy Intermediate Palpitation Verified 09/21/18 17:17 s clarithromycin Allergy Intermediate HIVES Verified 09/21/18 17:17 aspirin Allergy Mild hives/ringing Verified 09/21/18 17:17 of ears oxaprozin Allergy Mild nausea/vomi Verified 09/21/18 17:17 ting salicylates Allergy Mild ringing in Verified 09/21/18 17:17 ears/hives tramadol Allergy Mild hives/upset Verified 09/21/18 17:17 stomach Home Medications Home Medications Medication Instructions Recorded Confirmed Type Creon 1 cap PO TIDM #90 cap 07/04/18 09/21/18 Rx magnesium oxide 800 mg PO HS #15 tab 07/04/18 09/21/18 Rx pantoprazole 40 mg PO BID #60 tab 07/04/18 09/21/18 Rx thiamine HCl (vitamin B1) [Vitamin 100 mg PO QAM #30 tab 07/04/18 09/21/18 Rx B-1] tramadol 50 mg PO Q6H PRN #14 tab 07/11/18 09/21/18 Rx Centrum Silver 1 tab PO QAM 08/08/18 09/21/18 History calcium carbonate-vitamin D3 1 tab PO BID 08/08/18 09/21/18 History [Calcium 500 With D] citalopram [Celexa] 10 mg PO QAM 08/08/18 09/21/18 History gabapentin 300 mg PO TID 08/08/18 09/21/18 History hydroxyzine HCl 25 - 50 mg PO BID PRN 08/08/18 09/21/18 History multivitamin with minerals 3 tab PO QAM 08/08/18 09/21/18 History [Hair,Skin and Nails] omeprazole 20 mg PO QAM 08/08/18 09/21/18 History folic acid 1 mg PO DAILY 09/21/18 09/21/18 History loperamide 2 mg PO Q6 PRN 09/21/18 09/21/18 History meloxicam 7.5 mg PO BID PRN 09/21/18 09/21/18 History ondansetron 4 mg TRANSLINGUAL Q8 09/21/18 09/21/18 History sucralfate [Carafate] 1 g PO ACHS 09/21/18 09/21/18 History Patient History Medical History Lumbago (Chronic) Multiple sclerosis (Chronic) Alcohol abuse Anxiety Cirrhosis Degenerative disc disease Esophageal varices with banding Factitious disorder Fibromyalgia Opiate addiction Pancreatitis Presence of intrathecal pump containing morphine 0.189mg/day and fentanyl 2.52mcg/day miminimal rate per pt "it doesnt work I haven't been able to afford the medication for 3 years now"?? Sedative abuse Seizures None for greater than a year Surgical History History of Jeffy-en-Y gastric bypass History of cholecystectomy History of colonoscopy History of esophagogastroduodenoscopy (EGD) History of open reduction and internal fixation (ORIF) procedure left arm/left leg--hardware in place History of tooth extraction all teeth removed History of total hysterectomy with bilateral salpingo-oophorectomy (BSO) Family History Other Aneurysm Cancer No family history of adverse response to anesthesia Stroke Social History Preferred Language: Samoan Communication Ability: Effective Emergency Room Doctor Required: No Beliefs That Will Affect Care: None marital status: Current Living Situation: Alone Other Information That Helps Us Care for You: No Feels Safe at Home: Yes Safety Concerns: Feels Safe At This Time Smoking Status: Former smoker Smoking End Date: not sure ; Second Hand Exposure: Yes ; Tobacco Cessation Education Requested by Patient: No Hx Alcohol Use: Yes Alcohol type: hard liquor Hx Substance Use: No Review of Systems Review of Systems: All systems reviewed & are unremarkable except as noted in HPI & below Physical Exam Constitutional: + ill appearing, + frail appearing, + disheveled and cooperative Eyes: + scleral abnormality (icteric), PERRL and EOM intact bilaterally ENMT: external ear and nose normal, oropharynx normal Respiratory: no respiratory distress and does not use accessory muscles Auscultation: + diminished lung sounds Cardiovascular: RRR, no murmur, no edema Gastrointestinal (Abdomen): Inspection/Auscultation: + hypoactive bowel sounds Percussion/Palpation: + abdomen tender (diffuse ) and abdomen soft pain pump on RUQ area Skin: + jaundice (mild) ecchymosis on L upper chest, R upper thigh Neurologic: tremors on hand, no butch asterixis Psychiatric: Orientation: alert and oriented x 3 Affect: + depressed affect Lymphatic: no lymphedema Results & Data Vital Signs (Past 12 Hours) Vital Signs Temp Pulse Pulse Resp BP BP Pulse Ox 09/22/18 07:45 36.8 C 94 H 19 162/80 H 95 09/22/18 07:15 36.7 C 95 H 19 158/90 H 96 09/22/18 07:00 36.7 C 95 H 18 149/87 H 95 09/22/18 06:45 37.4 C 92 H 19 147/85 H 97 09/22/18 06:30 102 H 17 148/86 H 97 09/22/18 06:19 37.2 C 109 H 19 137/74 96 09/22/18 06:00 93 H 19 137/74 94 09/22/18 05:30 91 H 20 136/72 96 09/22/18 05:00 109 H 18 134/79 95 09/22/18 04:30 106 H 28 H 127/69 92 09/22/18 04:00 91 H 19 127/73 99 09/22/18 03:30 94 H 19 129/73 98 09/22/18 03:00 92 H 20 127/72 99 09/22/18 02:30 101 H 22 145/69 H 100 09/22/18 02:00 95 H 19 134/70 97 09/22/18 01:30 100 H 18 135/73 98 09/22/18 01:00 98 H 19 132/74 95 09/22/18 00:30 96 H 18 138/81 98 09/22/18 00:00 36.4 C L 98 H 18 148/86 H 99 09/21/18 23:30 94 H 17 140/89 100 09/21/18 23:00 104 H 23 137/85 100 09/21/18 22:30 104 H 17 139/84 100 09/21/18 22:00 99 H 18 142/82 H 100 09/21/18 21:30 98 H 19 137/80 100 09/21/18 21:26 36.6 C 95 H 16 137/80 100 09/21/18 21:24 96 H 09/21/18 21:08 99 H 19 137/80 100 09/21/18 21:06 104 H 21 (1) Rhabdomyolysis Rhabdomyolysis type: non-traumatic Qualified Code(s): M62.82 - Rhabdomyolysis (2) Acute pancreatitis Acute pancreatitis complication: unspecified Pancreatitis type: alcohol induced Qualified Code(s): K85.20 - Alcohol induced acute pancreatitis without necrosis or infection
[2018-09-22] MEDS: POTASSIUM CHLORIDE 20 MEQ TABCR PO SCH ×3 (09:10→21:46)
[2018-09-22] MEDS: FOLIC ACID 1 MG TAB PO SCH (09:10)
[2018-09-22] MEDS: THIAMINE HCL 100 MG TAB PO SCH (09:10)
[2018-09-22] MEDS: MULTIVITAMIN TAB PO SCH (09:11)
[2018-09-22] MEDS ORDERED: ATIVAN IV ALCOHOL WITHDRAWL IV SCH (09:15)
[2018-09-22] MEDS: PANTOprazole 40 MG in SYRINGE 0 ML IV SCH ×2 (09:26→21:45)
[2018-09-22] MEDS ORDERED: LORAZEPAM 3MG IV ACTIVE PROTOCOL IV PRN (09:45)
[2018-09-22] MEDS ORDERED: LORAZEPAM 1MG TAB AT RISK PROTOCOL PO PRN (09:45)
[2018-09-22] MEDS ORDERED: LORAZEPAM 1MG IV AT RISK PROTOCOL IV PRN (09:45)
[2018-09-22] MEDS ORDERED: LORAZEPAM 1MG TAB ACTIVE PROTOCOL PO PRN (09:45)
[2018-09-22] MEDS: OXYCODONE HCL IR 5 MG TAB (IMMEDIATE RELEASE) PO PRN ×3 (10:00→18:37)
[2018-09-22] MEDS: POT PHOSPHATE MONOBASIC W/ SOD TAB PO SCH ×2 (11:28→21:45)
[2018-09-22 14:13] LABS: Mean Corpuscular Hgb Conc 31.2 g/dL (32-36); Nucleated RBC # (auto) 0.03 K/uL (0-0); Nucleated RBC % (auto) 0.8 %
[2018-09-22 14:20] LABS: Hematocrit (blood only) 27.6 % (37-47); Hemoglobin 8.6 g/dL (12.0-16.0); Mean Corpuscular Volume 76.2 fL (80-100); RDW Coefficient of Variation 21.8 % (11.5-14.5); RDW Standard Deviation 60.9 fL (36.4-46.3); Red Blood Count 3.62 M/uL (4.2-5.4); White Blood Count 3.95 K/uL (4.8-10.8)
[2018-09-22 14:29] LABS: BUN Creatinine Ratio 21.5 (10-20); Calcium 7.6 mg/dl (8.5-10.1); Creatinine Clr Calc Pharmacy 62.2 ml/min; Est GFR (African American) 80.8; Est GFR (Non-African American) 69.7; Magnesium 2.5 mg/dl (1.8-2.4); Potassium 3.2 mmol/L (3.5-5.1)
[2018-09-22 14:44] LABS: Anisocytosis Present; Basophilic Stippling 1+; Immature Granulocytes # (auto) 0.01 K/uL (0.00-0.02); Immature Granulocytes % (auto) 0.3 %; Lymphocytes # (auto) 0.27 K/uL (1.2-3.4); Lymphocytes % (auto) 6.8 %; Monocytes # (auto) 0.26 K/uL (0.11-0.59); Monocytes % (auto) 6.6 %; Neutrophils # (auto) 3.41 K/uL (1.4-6.5); Neutrophils % (auto) 86.3 %; Platelet Count 29 K/uL (130-400); Platelet Estimate SIGNIFIC DECREASED (Normal); Polychromasia 1+; Target Cells 1+
--- NOTE | 2018-09-22 15:39 | Hospitalist Progress Note ---
Date of Service September 22, 2018 Assessment & Plan (1) Acute metabolic encephalopathy: Improved with correction of metabolic derangements and underlying acidosis. Patient was intoxicated on arrival to the ER with an alcohol level of 228. She is mentating normally at this time. (2) Alcohol withdrawal: She appears to have withdrawal symptoms including hypertension, tachycardia and tremulousness in the setting of heavy alcohol use. Continue gabapentin and Ativan. (3) Acute kidney injury: TYRONE improved to baseline. Likely secondary to dehydration and hypovolemia in setting of rhabdomyolysis. She is 10 L positive since admission. (4) Metabolic acidosis: Anion gap metabolic acidosis likely secondary to alcoholic ketoacidosis. This is being corrected in the ICU. (5) Acute pancreatitis: Likely secondary to alcohol use. Continue supportive care measures. She is tolerating a clear liquid diet at this time. (6) Rhabdomyolysis: Prolonged immobilization at home prior to arrival. Trend CK in a.m. (7) UTI (urinary tract infection): Continue Rocephin pending cultures per ICU team. (8) Pancytopenia: Pancytopenia likely secondary to bone marrow suppression in setting of heavy alcohol use. She received 1 unit of blood overnight and responded appropriately. No evidence of GI bleed at this time. Continue to monitor. Of note thrombocytopenia is also likely secondary to presumed cirrhosis secondary to alcohol use. (9) DVT prophylaxis: SCDs-chemoprophylaxis contraindicated in the setting of recent trauma and heavy alcohol use. Full code Disposition-continue ICU monitoring Elana Carr DO [facility] Hospitalist Subjective 53-year-old alcoholic female brought in status post fall and hospitalized in the ICU for multiple metabolic derangements. Today she is oriented and reporting generalized pain for which she has been getting regular oxycodone. She also is getting benzodiazepines for alcohol withdrawal. She is tolerating her clear liquid diet. Review of Systems Review of Systems: All systems reviewed & are unremarkable except as noted in HPI & below Physical Exam Physical Exam: CONSTITUTIONAL: WNWD, vitals as above, generally anxious/tremulous-appearing EYES: pupils are equal and round bilaterally, normal conjunctivae, no scleral icterus ENT: MMM RESPIRATORY: clear to auscultation bilaterally, no crackles, rales or wheezes, normal respiratory effort CARDIOVASCULAR: tachy rate and rhythm, S1 and 2 heard without murmurs, gallops or rubs, no JVD, no peripheral edema CHEST: ecchymosis to anterior chest wall GASTROINTESTINAL: soft, nontender, nondistended MUSCULOSKELETAL: moves all extremities equally SKIN: warm and dry, ecchymosis as above. NEUROLOGIC: No facial palsy, no dysarthria. CN 2-12 grossly intact, normal cognition, normal speech, +tremulousness in her hands PSYCHIATRIC: alert cooperative and oriented to person, place and time. Results & Data Vital Signs (Past 12 Hours) Vital Signs Temp Pulse Resp BP Pulse Ox 09/22/18 14:00 91 H 20 166/97 H 97 09/22/18 13:00 89 18 158/85 H 97 09/22/18 12:00 37 C 87 18 156/96 H 97 09/22/18 11:00 86 20 167/95 H 100 09/22/18 10:00 89 20 162/89 H 93 09/22/18 09:15 88 19 167/91 H 91 09/22/18 09:00 36.8 C 99 H 18 161/91 H 92 09/22/18 08:30 36.9 C 101 H 18 158/83 H 95 09/22/18 08:00 93 H 09/22/18 07:45 36.8 C 94 H 19 162/80 H 95 09/22/18 07:15 36.7 C 95 H 19 158/90 H 96 09/22/18 07:00 36.7 C 95 H 18 149/87 H 95 09/22/18 06:45 37.4 C 92 H 19 147/85 H 97 09/22/18 06:30 102 H 17 148/86 H 97 09/22/18 06:19 37.2 C 109 H 19 137/74 96 09/22/18 06:00 93 H 19 137/74 94 09/22/18 05:30 91 H 20 136/72 96 09/22/18 05:00 109 H 18 134/79 95 09/22/18 04:30 106 H 28 H 127/69 92 09/22/18 04:00 91 H 19 127/73 99 Laboratory Results Short CBC 09/21/18 09/21/18 09/22/18 Range/Units 17:04 22:19 03:52 WBC 6.67 2.97 L (4.8-10.8) K/uL Hgb 10.0 L 8.3 L 7.5 L (12.0-16.0) g/dL Hct 34.6 L 28.3 L 25.1 L (37-47) % Plt Count 106 L 30 L D (130-400) K/uL 09/22/18 Range/Units 13:53 WBC 3.95 L (4.8-10.8) K/uL Hgb 8.6 L (12.0-16.0) g/dL Hct 27.6 L (37-47) % Plt Count 29 L* (130-400) K/uL BMP 09/21/18 09/21/18 09/22/18 17:04 22:17 03:52 Sodium 143 142 140 Potassium 2.9 L 2.6 L 2.8 L Chloride 104 108 H 102 Carbon Dioxide 8 L* 15 L 24 BUN 34 H 30 H 25 H Creatinine 1.67 H 1.07 0.86 Glucose 70 244 H 108 H Calcium 7.9 L 6.6 L D 6.5 L 09/22/18 13:53 Sodium 140 Potassium 3.2 L Chloride 103 Carbon Dioxide 28 BUN 20 H Creatinine 0.93 Glucose 189 H Calcium 7.6 L D Cardiac Enzymes 09/21/18 09/21/18 09/22/18 Range/Units 17:04 17:04 03:52 Total Creatine Kinase 1420 H 1103 H (26-192) U/L Troponin I < 0.015 (0-0.045) ng/ml Liver Function 09/21/18 09/21/18 09/22/18 Range/Units 17:04 17:04 03:52 Total Bilirubin 2.2 H 1.9 H (0.2-1) mg/dl Direct Bilirubin 1.5 H 1.2 H (0-0.2) mg/dl AST 190 H 129 H (15-37) U/L ALT 74 53 (12-78) U/L Alkaline Phosphatase 171 H 120 H (45-117) U/L Albumin 4.4 3.1 L (3.4-5.0) gm/dl Urine 09/21/18 Range/Units 18:45 Urine Color Dark Yellow Urine Appearance Cloudy A (Clear) Urine pH 5.0 (4.5-7.5) Ur Specific [place] 1.020 (1.000-1.030) Urine Protein 2+ H (Negative) Urine Glucose (UA) Negative (Negative) Medications Administered Current Inpatient Medications Folic Acid (Folvite) 1 mg PO QAM [facility] Stop: 10/22/18 08:59 Last Admin: 09/22/18 09:10 Dose: 1 mg Documented by: Sodium Chloride (Nss) 250 mls @ 15 mls/hr IV .[id number] PRN PRN Reason: For Transfusion Stop: 10/22/18 05:14 Parenteral Electrolytes (Normosol-R) 1,000 mls @ 150 mls/hr IV .[id number] [facility] Stop: 10/22/18 05:29 Last Admin: 09/22/18 13:52 Dose: 150 mls/hr Documented by: Pantoprazole Sodium 40 mg/ (Syringe) 10 mls @ 5 mls/min IV BID@0900,2100 [facility] Stop: 10/22/18 08:59 Last Admin: 09/22/18 09:26 Dose: 5 mls/min Documented by: Lorazepam (Ativan) 1 mg in 2 mls @ 2 mls/min IV Q1H PRN; Protocol PRN Reason: Symptoms of alcohol withdrawal Stop: 10/22/18 09:44 Lorazepam (Ativan) 2 mg in 4 mls @ 4 mls/min IV Q1H PRN; Protocol PRN Reason: Symptoms of alcohol withdrawal Stop: 10/22/18 09:44 Lorazepam (Ativan) 3 mg in 6 mls @ 6 mls/min IV Q1H PRN; Protocol PRN Reason: Symptoms of alcohol withdrawal Ceftriaxone Sodium 1,000 mg/ (Dextrose) 60 mls @ 120 mls/hr IV Q24H [facility] Stop: 09/27/18 15:59 Miscellaneous (Icu Protocol For Hyperglycemia) 1 ea N/A PRN PRN; Protocol PRN Reason: Hyperglycemia Protocol Stop: 09/23/18 21:23 Multivitamins (Multivitamin Tab) 1 tab PO [facility] Stop: 10/22/18 08:59 Last Admin: 09/22/18 09:11 Dose: 1 tab Documented by: Oxycodone HCl (Roxicodone Immediate Rel) 5 mg PO Q4H PRN PRN Reason: moderate Pain Stop: 10/06/18 09:39 Last Admin: 09/22/18 13:57 Dose: 5 mg Documented by: Potassium Chloride (Klor-Con M20) 40 meq PO TID [facility] Stop: 09/23/18 21:01 Last Admin: 09/22/18 13:49 Dose: 40 meq Documented by: Potassium Phosphate (Phospha 250 Neutral 155-852-130 Mg) 2 tab PO BID [facility] Stop: 09/27/18 21:01 Last Admin: 09/22/18 11:28 Dose: 2 tab Documented by: Thiamine HCl (Vitamin B-1) 100 mg PO QAM [facility] Stop: 10/22/18 08:59 Last Admin: 09/22/18 09:10 Dose: 100 mg Documented by: (1) Rhabdomyolysis Rhabdomyolysis type: non-traumatic Qualified Code(s): M62.82 - Rhabdomyolysis (2) Acute pancreatitis Acute pancreatitis complication: unspecified Pancreatitis type: alcohol induced Qualified Code(s): K85.20 - Alcohol induced acute pancreatitis without necrosis or infection
[2018-09-22] MEDS: cefTRIAXone SODIUM 1,000 MG in DEXTROSE 5% 50 ML IV SCH (16:03)
[2018-09-22] MEDS ORDERED: CALCIUM GLUCONATE 10% 10 ML VIAL IV STA (16:21)
[2018-09-22] MEDS ORDERED: CALCIUM GLUCONATE 10% 1,000 MG in SODIUM CHLORIDE 0.9% 50 ML IV STA (16:29)
[2018-09-22] MEDS: LORAZEPAM 1MG IV ACTIVE PROTOCOL IV PRN (18:36)
[2018-09-22 20:28] LABS: BUN Creatinine Ratio 19.7 (10-20); Calcium 7.7 mg/dl (8.5-10.1); Creatinine Clr Calc Pharmacy 78.2 ml/min; Est GFR (African American) 106.5; Est GFR (Non-African American) 91.8; Magnesium 2.5 mg/dl (1.8-2.4); Potassium 3.2 mmol/L (3.5-5.1)
[2018-09-22 20:42] LABS: Hematocrit (blood only) 26.9 % (37-47); Hemoglobin 8.5 g/dL (12.0-16.0); Platelet Count 27 K/uL (130-400); Platelet Estimate Decreased (Normal)
[2018-09-22 20:45] LABS: Phosphorus 1.2 mg/dl (2.5-4.9)
[2018-09-22] MEDS ORDERED: SODIUM PHOSPHATE 3 MMOL/1 ML 5 ML VIAL IV STA (21:02)
[2018-09-22] MEDS ORDERED: SODIUM PHOSPHATE 30 MMOL in SODIUM CHLORIDE 0.9% 500 ML IV ONE (21:30)
[2018-09-22 21:45] LABS: Phosphorus 1.2 mg/dl (2.5-4.9)
[2018-09-23] MEDS: LORAZEPAM 2MG IV ACTIVE PROTOCOL IV PRN ×3 (02:09→12:46)
[2018-09-23] MEDS: OXYCODONE HCL IR 5 MG TAB (IMMEDIATE RELEASE) PO PRN ×3 (02:09→12:43)
[2018-09-23] MEDS: NORMOSOL-R 1,000 ML IV SCH ×3 (03:21→15:38)
[2018-09-23 05:09] LABS: INR 1.3 (0.9-1.1); Partial Thromboplastin Time 28.3 Seconds (21.0-31.0); Prothrombin Time 13.1 Seconds (9.0-12.0)
[2018-09-23 05:22] LABS: Albumin Level 2.7 gm/dl (3.4-5.0); BUN Creatinine Ratio 17.7 (10-20); Bilirubin Direct 0.4 mg/dl (0-0.2); Bilirubin,Total 0.9 mg/dl (0.2-1); Calcium 7.2 mg/dl (8.5-10.1); Creatinine Clr Calc Pharmacy 128.6 ml/min; Est GFR (African American) 131.7; Est GFR (Non-African American) 113.6; Magnesium 2.1 mg/dl (1.8-2.4); Phosphorus 3.3 mg/dl (2.5-4.9); Potassium 3.1 mmol/L (3.5-5.1); Total Protein 5.3 gm/dl (6.4-8.2)
[2018-09-23 05:53] LABS: Mean Corpuscular Hgb Conc 31.4 g/dL (32-36)
[2018-09-23 06:03] LABS: Anisocytosis Present; Basophils # (auto) 0.01 K/uL (0-0.2); Basophils % (auto) 0.4 %; Eosinophils # (auto) 0.03 K/uL (0-0.5); Eosinophils % (auto) 1.1 %; Hematocrit (blood only) 25.8 % (37-47); Hemoglobin 8.1 g/dL (12.0-16.0); Hypochromasia Present; Lymphocytes # (auto) 0.41 K/uL (1.2-3.4); Lymphocytes % (auto) 15.1 %; Mean Corpuscular Volume 76.1 fL (80-100); Monocytes # (auto) 0.27 K/uL (0.11-0.59); Monocytes % (auto) 9.9 %; Neutrophils % (auto) 73.5 %; Nucleated RBC # (auto) 0.06 K/uL (0-0); Nucleated RBC % (auto) 2.3 %; Platelet Count 32 K/uL (130-400); Platelet Estimate SIGNIFIC DECREASED (Normal); RDW Coefficient of Variation 22.2 % (11.5-14.5); RDW Standard Deviation 61.3 fL (36.4-46.3); Red Blood Count 3.39 M/uL (4.2-5.4); White Blood Count 2.72 K/uL (4.8-10.8)
--- NOTE | 2018-09-23 08:03 | Critical Care Progress Note ---
Date of Service September 23, 2018 Assessment & Plan (1) Admitted to intensive care unit: Impression: 53-year-old female with history of extensive alcohol abuse admitted with alcoholic ketosis and multiple electrolyte abnormalities as well as hypothermia and mild rhabdomyolysis and acute kidney injury. She also was found to have urinary tract infection. Recommendations: 1. Alcoholic ketosis: Resolved. Bicarb infusion is off. Acid-base status appears corrected. 2. Multiple electrolyte abnormalities including hypocalcemia, hypomagnesemia, hypokalemia, and hypophosphatemia. Secondary to poor intake with alcohol use as well as acid-base derangements. Continue repletion protocols and recheck. 3. Pancytopenia: Suspect bone marrow suppression due to long-term alcohol abuse. No indication for transfusion of blood products currently. She does not appear to be actively bleeding. Appreciate GI consultation. Agree with plans to hold off on any endoscopy. 4. Acute kidney injury: Resolved: Continue to follow 5. Hyperglycemia: Resolving: Continue to trend 6. Rhabdomyolysis: CPK appears to be decreasing with aggressive fluid hydration. We will continue fluids for now until the patient is taking adequate oral. 7. Acute on chronic pancreatitis: Lipase is decreasing. The patient has no abdominal pain. Continue to feed and follow clinically. No indication for antibiotics currently. 8. Deconditioning: PT OT evaluation. Out of bed as tolerated. Unclear if the patient will require placement prior to discharge. 9. Urinary tract infection: Sensitive Klebsiella identified. Continue Rocephin and transition to oral antibiotics when taking adequate p.o. 10. Acute alcohol intoxication: High potential for withdrawal. Continue benzodiazepines as needed. Continue thiamine folate multivitamin. The patient appears to have responded favorably to interventions noted above. She appears appropriate to transfer to the floor under the care of the hospitalist. Will sign off when she leaves the ICU. Feel free to contact us with additional pulmonary critical care issues. 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 The patient appears to be responding with correction of her metabolic abnormalities. She continues to complain of mild to moderate total body pain. She is tolerating oral intake. She has not exhibited any evidence of alcohol withdrawal. No seizure activity. She remains fairly debilitated. Review of Systems Review of Systems: All systems reviewed & are unremarkable except as noted in HPI & below Physical Exam Constitutional: + ill appearing and + thin Neck: trachea midline, no thyromegaly Respiratory: normal respiratory effort, lungs clear to auscultation Cardiovascular: RRR, no murmur, no edema Gastrointestinal (Abdomen): normal bowel sounds, soft, nontender, no hepatosplenomegaly Skin: Multiple ecchymoses and bruising on the upper lower extremities and chest Results & Data Vital Signs (Past 12 Hours) Vital Signs Temp Pulse Resp BP Pulse Ox Pulse Ox 09/23/18 06:00 103 H 20 129/83 93 09/23/18 05:00 105 H 21 137/85 95 09/23/18 04:00 105 H 21 142/89 H 94 09/23/18 03:00 103 H 21 147/81 H 95 09/23/18 02:00 102 H 19 143/79 H 95 09/23/18 01:00 96 H 19 148/88 H 94 09/23/18 00:05 94 H 19 148/94 H 95 09/22/18 23:00 92 H 20 161/98 H 96 09/22/18 22:00 90 20 158/89 H 94 09/22/18 21:24 94 09/22/18 21:00 90 18 151/100 H 93 09/22/18 20:00 37 C 92 H 19 160/99 H 95 Laboratory Results 09/23/18 04:36 09/23/18 04:36 Microbiology 09/21/18 18:45 Urine,Straight Cath Urine Culture - Preliminary Klebsiella pneumoniae 09/21/18 16:52 Blood Aerobic Blood Culture - Preliminary No growth in Aerobic bottle after 24 hours. 09/21/18 16:52 Blood Anaerobic Blood Culture - Final 09/21/18 17:04 Blood Aerobic Blood Culture - Preliminary No growth in Aerobic bottle after 24 hours. 09/21/18 17:04 Blood Anaerobic Blood Culture - Preliminary No growth in Anaerobic bottle after 24 hours. PG Care Time/CCT Total # of Minutes Spent Total Time Spent with Patient: Total time spent is greater than 50% in coordination of care (as documented) at patient's floor/unit and/or counseling patient: 41 minutes evaluating patient and coordinating care including transfer. (1) Hypotension Hypotension type: unspecified hypotension type Qualified Code(s): I95.9 - Hypotension, unspecified (2) Acute pancreatitis Acute pancreatitis complication: unspecified Pancreatitis type: alcohol induced Qualified Code(s): K85.20 - Alcohol induced acute pancreatitis without necrosis or infection (3) UTI (urinary tract infection) Hematuria presence: without hematuria Urinary tract infection type: site unspecified Qualified Code(s): N39.0 - Urinary tract infection, site not specified (4) Rhabdomyolysis Rhabdomyolysis type: non-traumatic Qualified Code(s): M62.82 - Rhabdomyolysis
[2018-09-23] MEDS: POTASSIUM CHLORIDE 20 MEQ TABCR PO SCH ×2 (08:22→12:45)
[2018-09-23] MEDS: POT PHOSPHATE MONOBASIC W/ SOD TAB PO SCH (08:22)
[2018-09-23] MEDS: THIAMINE HCL 100 MG TAB PO SCH (08:23)
[2018-09-23] MEDS: FOLIC ACID 1 MG TAB PO SCH (08:23)
[2018-09-23] MEDS: MULTIVITAMIN TAB PO SCH (08:23)
[2018-09-23] MEDS ORDERED: POTASSIUM CHLORIDE 20 MEQ TABCR PO SCH (09:00)
[2018-09-23] MEDS: CALCIUM 600MG + VIT D 400 IU TAB PO SCH (09:15)
[2018-09-23] MEDS: PANTOprazole 40 MG in SYRINGE 0 ML IV SCH ×2 (09:18→19:54)
[2018-09-23] MEDS ORDERED: GABAPENTIN 1200MG ALCOHOL WITHDRAWAL LOAD PO STA (11:49)
[2018-09-23] MEDS ORDERED: GABAPENTIN 600 MG TAB PO SCH ×2 (12:00→18:00)
[2018-09-23] MEDS: ONDANSETRON INJ 2 MG/ML 2 ML VIAL IV PRN (14:51)
[2018-09-23] MEDS: cefTRIAXone SODIUM 1,000 MG in DEXTROSE 5% 50 ML IV SCH (15:38)
--- NOTE | 2018-09-23 18:06 | Hospitalist Progress Note ---
Date of Service September 23, 2018 Assessment & Plan (1) Acute metabolic encephalopathy: Improved with correction of metabolic derangements and underlying acidosis, but she is now worse in the setting of alcohol withdrawal. NPO for now with recent episode of vomiting and confabulation listed above. (2) Alcohol withdrawal: She appears to have withdrawal symptoms including hypertension, tachycardia and tremulousness in the setting of heavy alcohol use. Gabapentin given today, but now NPO. Cont Ativan PRN. (3) Acute kidney injury: TYRONE improved to baseline. Likely secondary to dehydration and hypovolemia in setting of rhabdomyolysis. She is 10 L positive since admission. IVF are stopped. (4) Metabolic acidosis: resolved (5) Acute pancreatitis: Likely secondary to alcohol use. Continue supportive care measures. She is tolerating a clear liquid diet at this time, but NPO temporarily as above. IVF stopped in setting of volume overload. (6) Rhabdomyolysis: Prolonged immobilization at home prior to arrival. Trend CK in a.m. (7) UTI (urinary tract infection): Continue Rocephin. Cultures reveal pansensitive Klebsiella, however, cont IV while NPO. (8) Pancytopenia: Pancytopenia likely secondary to bone marrow suppression in setting of heavy alcohol use. She received 1 unit of blood this admission and responded appropriately. No evidence of GI bleed at this time. Platelets are decreased in setting of this and acute illness. Continue to monitor. Of note thrombocytopenia is also likely secondary to presumed cirrhosis secondary to alcohol use. (9) DVT prophylaxis: SCDs-chemoprophylaxis contraindicated in the setting of recent trauma and heavy alcohol use. Full code Disposition-transferred to PCU today, cont PCU monitoring. Elana Carr DO [facility] Hospitalist Subjective Patient had abdominal pain into her mouth where she was wearing her nasal cannula holding it in her mouth. She was unaware of the need to remove this and the nurse had to assist her. She continues to cough and choke and per nursing has looked to have some difficulty with swallowing today. The patient is unable to give an accurate review of systems. She will occasionally say something that makes sense but then mumbles unintelligible words and can continues to cough. She is able to follow instructions. She was transferred out of the ICU earlier this morning. She is not having difficulty breathing and has a normal oxygen saturation on 2 L nasal cannula, but it is noted that she is significantly volume up after aggressive resuscitation on admission (greater than 10 L). She reports having pain all over and cannot specify. Review of Systems Review of Systems: Unobtainable due to cognitive status Physical Exam Physical Exam: CONSTITUTIONAL: WNWD, vitals as above, generally trembling, appears disheveled and disoriented EYES: normal conjunctivae, no scleral icterus ENT: pt was holding nasal canula in mouth and had vomited into it but was still holding the vomit and oxygen in her mouth. RESPIRATORY: coarse rhonchi throughout, poor exam quality because of level of participation and she continues to cough and choke. CARDIOVASCULAR: tachy rate and rhythm, S1 and 2 heard without murmurs, gallops or rubs, no JVD, no peripheral edema CHEST: ecchymosis to anterior chest wall GASTROINTESTINAL: soft, nontender, nondistended MUSCULOSKELETAL: moves all extremities equally, generalized weakness SKIN: warm and dry, ecchymosis as above. NEUROLOGIC: No facial palsy, CN 2-12 grossly intact, unintelligible words. PSYCHIATRIC: alert and orients to voice, follows some instruction Results & Data Vital Signs (Past 12 Hours) Vital Signs Temp Pulse Pulse Resp BP BP BP 09/23/18 15:15 37.5 C 103 H 18 166/97 H 09/23/18 14:55 162/94 H 09/23/18 14:47 37.2 C 109 H 24 09/23/18 13:59 37.2 C 116 H 20 148/93 H 09/23/18 12:00 37.5 C 104 H 20 130/79 09/23/18 11:53 37.5 C 104 H 18 130/79 09/23/18 10:00 94 H 13 134/91 09/23/18 09:00 107 H 27 H 155/100 H 09/23/18 08:09 121 H 24 09/23/18 08:00 37.2 C 109 H 141/88 H 09/23/18 07:00 104 H 20 139/81 Pulse Ox 09/23/18 15:15 100 09/23/18 14:55 09/23/18 14:47 100 09/23/18 13:59 100 09/23/18 12:00 95 09/23/18 11:53 95 09/23/18 10:00 95 09/23/18 09:00 97 09/23/18 08:09 09/23/18 08:00 09/23/18 07:00 94 Laboratory Results Short CBC 09/22/18 09/23/18 Range/Units 19:54 04:36 WBC 2.72 L (4.8-10.8) K/uL Hgb 8.5 L 8.1 L (12.0-16.0) g/dL Hct 26.9 L 25.8 L (37-47) % Plt Count 27 L* 32 L (130-400) K/uL BMP 09/22/18 09/23/18 19:54 04:36 Sodium 139 143 Potassium 3.2 L 3.1 L Chloride 104 107 Carbon Dioxide 30 28 BUN 15 8 D Creatinine 0.74 0.45 L Glucose 135 H 96 Calcium 7.7 L 7.2 L Cardiac Enzymes 09/23/18 Range/Units 04:36 Total Creatine Kinase 688 H (26-192) U/L Liver Function 09/23/18 Range/Units 04:36 Total Bilirubin 0.9 D (0.2-1) mg/dl Direct Bilirubin 0.4 H D (0-0.2) mg/dl AST 91 H (15-37) U/L ALT 45 (12-78) U/L Alkaline Phosphatase 107 (45-117) U/L Albumin 2.7 L (3.4-5.0) gm/dl Medications Administered Current Inpatient Medications Pantoprazole Sodium 40 mg/ (Syringe) 10 mls @ 5 mls/min IV BID@0900,2100 [facility] Stop: 10/22/18 08:59 Last Admin: 09/23/18 09:18 Dose: 5 mls/min Documented by: Lorazepam (Ativan) 1 mg in 2 mls @ 2 mls/min IV Q1H PRN; Protocol PRN Reason: Symptoms of alcohol withdrawal Stop: 10/22/18 09:44 Last Admin: 09/22/18 18:36 Dose: 2 mls/min Documented by: Lorazepam (Ativan) 2 mg in 4 mls @ 4 mls/min IV Q1H PRN; Protocol PRN Reason: Symptoms of alcohol withdrawal Stop: 10/22/18 09:44 Last Admin: 09/23/18 12:46 Dose: 4 mls/min Documented by: Lorazepam (Ativan) 3 mg in 6 mls @ 6 mls/min IV Q1H PRN; Protocol PRN Reason: Symptoms of alcohol withdrawal Ceftriaxone Sodium 1,000 mg/ (Dextrose) 60 mls @ 120 mls/hr IV Q24H [facility] Stop: 09/27/18 15:59 Last Infusion: 09/23/18 16:25 Dose: Infused Documented by: Thiamine HCl 100 mg/ Syringe 10 mls @ 2 mls/min IV QAM [facility] Stop: 10/24/18 08:59 Miscellaneous (Icu Protocol For Hyperglycemia) 1 ea N/A PRN PRN; Protocol PRN Reason: Hyperglycemia Protocol Stop: 09/23/18 21:23 Multivitamins (Multivitamin Tab) 1 tab PO QAM [facility] Stop: 10/22/18 08:59 Last Admin: 09/23/18 08:23 Dose: 1 tab Documented by: Multivitamins/Minerals (Caltrate Plus) 1 tab PO BID [facility] Stop: 10/23/18 08:59 Last Admin: 09/23/18 09:15 Dose: 1 tab Documented by: Ondansetron HCl (Zofran) 4 mg IV Q8H PRN PRN Reason: Nausea Stop: 10/23/18 13:45 Last Admin: 09/23/18 14:51 Dose: 4 mg Documented by: Oxycodone HCl (Roxicodone Immediate Rel) 5 mg PO Q4H PRN PRN Reason: moderate Pain Stop: 10/06/18 09:39 Last Admin: 09/23/18 12:43 Dose: 5 mg Documented by: (1) Rhabdomyolysis Rhabdomyolysis type: non-traumatic Qualified Code(s): M62.82 - Rhabdomyolysis (2) Acute pancreatitis Acute pancreatitis complication: unspecified Pancreatitis type: alcohol induced Qualified Code(s): K85.20 - Alcohol induced acute pancreatitis without necrosis or infection
--- NOTE | 2018-09-23 19:32 | XRay Report ---
SINGLE VIEW CHEST CLINICAL HISTORY: Aspiration. FINDINGS: An AP, portable, semierect chest radiograph is compared to chest x-ray and chest CT dated . The examination is degraded by portable technique and patient rotation. The heart is enlar ged. The pulmonary vasculature is noncongested. There are low lung volumes and bibasilar atelectasis. No airspace consolidation or pleural effusion is identified. No pneumothorax is seen. The skeletal s tructures are osteopenic. There are healed bilateral rib fractures. Surgical clips are noted in the u pper abdomen. IMPRESSION: 1. Cardiac enlargement with no radiographic evidence of congestive failure. 2. Low lung volumes with no airspace consolidation or pleural effusion. Electronically signed by: Herbie Reese M.D. 09/23/2018 7:31 PM
[2018-09-23] MEDS: MoRPHine SULFATE 2 MG/ML CARP IV PRN (23:58)
[2018-09-24] MEDS: MoRPHine SULFATE 2 MG/ML CARP IV PRN (06:13)
[2018-09-24 06:55] LABS: Mean Corpuscular Hgb Conc 31.6 g/dL (32-36); Nucleated RBC # (auto) 0.03 K/uL (0-0); Nucleated RBC % (auto) 1.3 %; Platelet Count 27 K/uL (130-400)
[2018-09-24 06:59] LABS: BUN Creatinine Ratio 11.1 (10-20); Blood Urea Nitrogen 3 mg/dl (7-18); Calcium 7.7 mg/dl (8.5-10.1); Carbon Dioxide 31 mmol/L (21-32); Chloride 106 mmol/L (98-107); Creatinine Clr Calc Pharmacy 206.7 ml/min; Est GFR (African American) > 150.0; Est GFR (Non-African American) 132.8; Glucose 92 mg/dl (70-99); Magnesium 2.1 mg/dl (1.8-2.4); Potassium 2.8 mmol/L (3.5-5.1); Sodium 143 mmol/L (136-145)
[2018-09-24 07:04] LABS: Creatine Kinase 608 U/L (26-192)
[2018-09-24 07:15] LABS: Hematocrit (blood only) 26.3 % (37-47); Hemoglobin 8.3 g/dL (12.0-16.0); Mean Corpuscular Volume 76.7 fL (80-100); RDW Coefficient of Variation 23.3 % (11.5-14.5); RDW Standard Deviation 63.9 fL (36.4-46.3); Red Blood Count 3.43 M/uL (4.2-5.4); White Blood Count 1.99 K/uL (4.8-10.8)
[2018-09-24 07:16] LABS: Anisocytosis Present; Basophilic Stippling 1+; Basophils # (auto) 0.03 K/uL (0-0.2); Basophils % (auto) 1.5 %; Eosinophils # (auto) 0.07 K/uL (0-0.5); Eosinophils % (auto) 3.5 %; Giant Platelets 3+; Hypochromasia Present; Lymphocytes # (auto) 0.48 K/uL (1.2-3.4); Lymphocytes % (auto) 24.1 %; Monocytes % (auto) 10.1 %; Neutrophils # (auto) 1.21 K/uL (1.4-6.5); Neutrophils % (auto) 60.8 %; Platelet Estimate SIGNIFIC DECREASED (Normal); Polychromasia 1+
[2018-09-24] MEDS ORDERED: GABAPENTIN 600 MG TAB PO SCH (08:00)
[2018-09-24] MEDS: PANTOprazole 40 MG in SYRINGE 0 ML IV SCH (08:17)
[2018-09-24] MEDS: LORAZEPAM 1MG IV ACTIVE PROTOCOL IV PRN (08:23)
[2018-09-24] MEDS ORDERED: THIAMINE HCL 100 MG in SYRINGE 9 ML IV SCH (09:00)
--- NOTE | 2018-09-24 13:12 | Hospitalist Progress Note ---
Date of Service September 24, 2018 Assessment & Plan (1) Pancytopenia: Pancytopenia likely secondary to bone marrow suppression in setting of heavy alcohol use. She received 1 unit of blood this admission and responded appropriately. No evidence of GI bleed at this time. Platelets are decreased in setting of this and acute illness. Leukopenia. Continue to monitor. Of note thrombocytopenia is also likely secondary to presumed cirrhosis secondary to alcohol use. (2) Acute metabolic encephalopathy: Improved with correction of metabolic derangements and underlying acidosis, was somewhat worse yesterday. Currently, more lucid and appears orie nted. Advance diet and restart oral meds (3) Alcohol withdrawal: Ativan PRN, was receiving gabapentin but then was made NPO yesterday. Better today, cont Ativan and home SSRI (4) Acute kidney injury: Resolved. Likely secondary to dehydration and hypovolemia in setting of rhabdomyolysis. She is volume up since admission >10L with urine appearing concentrated. Cont to hold IVF and no diuretics given. (5) Metabolic acidosis: resolved (6) Acute pancreatitis: Likely secondary to alcohol use. Continue supportive care measures. ADAT (7) Rhabdomyolysis: Prolonged immobilization at home prior to arrival. CK only mildly improved, however, in setting of aggressive resuscitation and volume status would hold on further IVF at this time and let her body re-equilibrate on its own. (8) UTI (urinary tract infection): Pansensitive Klebsiella, but continue Rocephin while adjusting other meds today and initiating NPO. De-escalate tomorrow. (9) DVT prophylaxis: SCDs-chemoprophylaxis contraindicated in the setting of severe thrombocytopenia. Full code Disposition-transferred to PCU today, cont PCU monitoring. DO Timur Elise Hospitalist Subjective Feeling better today asking for food appears more alert and oriented but still very deconditioned and weak diet was advanced ordered oral meds-she understands she is not allowed to have morphine at this point, but just wants her "nerve" pill also of note, she is not on narcotics as outpatient. Review of Systems Review of Systems: All systems reviewed & are unremarkable except as noted in HPI & below Physical Exam Physical Exam: CONSTITUTIONAL: WNWD, vitals as above, deconditioned, fatigued EYES: normal conjunctivae, no scleral icterus ENT: MMM RESPIRATORY: CTAB, normal respiratory effort CARDIOVASCULAR: reg rate and rhythm, S1 and 2 heard without murmurs, gallops or rubs, no JVD, no peripheral edema CHEST: ecchymosis to anterior chest wall GASTROINTESTINAL: soft, nontender, nondistended MUSCULOSKELETAL: moves all extremities equally, generalized weakness SKIN: warm and dry, ecchymosis as above. NEUROLOGIC: No facial palsy, CN 2-12 grossly intact, more alert today, oriented, cooperative Results & Data Vital Signs (Past 12 Hours) Vital Signs Temp Pulse Pulse Resp BP Pulse Ox 09/24/18 11:34 37.1 C 90 17 126/83 95 09/24/18 07:32 36.7 C 88 22 150/96 H 98 09/24/18 04:00 36.9 C 85 19 162/98 H 99 Laboratory Results Short CBC 09/24/18 Range/Units 05:36 WBC 1.99 L (4.8-10.8) K/uL Hgb 8.3 L (12.0-16.0) g/dL Hct 26.3 L (37-47) % Plt Count 27 L* (130-400) K/uL BMP 09/24/18 05:36 Sodium 143 Potassium 2.8 L Chloride 106 Carbon Dioxide 31 BUN 3 L D Creatinine 0.28 L Glucose 92 Calcium 7.7 L Cardiac Enzymes 09/24/18 Range/Units 05:36 Total Creatine Kinase 608 H (26-192) U/L Medications Administered Current Inpatient Medications Acetaminophen (Tylenol) 1,000 mg PO Q8H MICHELLE Stop: 10/24/18 13:14 Lipase/Protease/Amylase (Pancreaze (Lipase 10,500u)) 1 cap PO TIDM MICHELLE Stop: 10/24/18 16:59 Citalopram Hydrobromide (Celexa) 10 mg PO QAM MICHELLE Stop: 10/24/18 13:14 Folic Acid (Folvite) 1 mg PO QAM MICHELLE Stop: 10/25/18 08:59 Gabapentin (Neurontin) 300 mg PO TID MICHELLE Stop: 10/24/18 13:59 Lorazepam (Ativan) 1 mg in 2 mls @ 2 mls/min IV Q1H PRN; Protocol PRN Reason: Symptoms of alcohol withdrawal Stop: 10/22/18 09:44 Last Admin: 09/24/18 08:23 Dose: 2 mls/min Documented by: Lorazepam (Ativan) 2 mg in 4 mls @ 4 mls/min IV Q1H PRN; Protocol PRN Reason: Symptoms of alcohol withdrawal Stop: 10/22/18 09:44 Last Admin: 09/23/18 12:46 Dose: 4 mls/min Documented by: Lorazepam (Ativan) 3 mg in 6 mls @ 6 mls/min IV Q1H PRN; Protocol PRN Reason: Symptoms of alcohol withdrawal Ceftriaxone Sodium 1,000 mg/ (Dextrose) 60 mls @ 120 mls/hr IV Q24H [facility] Stop: 09/27/18 15:59 Last Infusion: 09/23/18 16:25 Dose: Infused Documented by: Multivitamins (Multivitamin Tab) 1 tab PO QAM [facility] Stop: 10/22/18 08:59 Last Admin: 09/23/18 08:23 Dose: 1 tab Documented by: Multivitamins/Minerals (Caltrate Plus) 1 tab PO BID [facility] Stop: 10/23/18 08:59 Last Admin: 09/23/18 09:15 Dose: 1 tab Documented by: Ondansetron HCl (Zofran) 4 mg IV Q8H PRN PRN Reason: Nausea Stop: 10/23/18 13:45 Last Admin: 09/23/18 14:51 Dose: 4 mg Documented by: Pantoprazole Sodium (Protonix) 40 mg PO BID [facility] Stop: 10/24/18 20:59 Thiamine HCl (Vitamin B-1) 100 mg PO QAM [facility] Stop: 10/25/18 08:59 Tramadol HCl (Ultram) 50 mg PO Q6H PRN PRN Reason: Pain Stop: 10/24/18 13:09 (1) Rhabdomyolysis Rhabdomyolysis type: non-traumatic Qualified Code(s): M62.82 - Rhabdomyolysis (2) Acute pancreatitis Acute pancreatitis complication: unspecified Pancreatitis type: alcohol induced Qualified Code(s): K85.20 - Alcohol induced acute pancreatitis without necrosis or infection
[2018-09-24] MEDS: ACETAMINOPHEN 500 MG TAB PO SCH ×2 (13:46→21:39)
[2018-09-24] MEDS: CITALOPRAM 20 MG TAB PO SCH (13:58)
[2018-09-24] MEDS: GABAPENTIN 300 MG CAP PO SCH ×2 (13:58→21:40)
[2018-09-24] MEDS: PANCREAZE (LIPASE 10,500U) CAP PO SCH (16:06)
[2018-09-24] MEDS: cefTRIAXone SODIUM 1,000 MG in DEXTROSE 5% 50 ML IV SCH (16:06)
[2018-09-24] MEDS: TRAMADOL HCL 50 MG TABLET PO PRN (16:13)
[2018-09-24] MEDS ORDERED: POTASSIUM CHLORIDE 20 MEQ TABCR PO STA (20:59)
[2018-09-24] MEDS ORDERED: POTASSIUM CHLORIDE 40 MEQ in SODIUM CHLORIDE 0.9% 500 ML IV SCH (21:00)
[2018-09-24] MEDS: PANTOprazole 40 MG TAB PO SCH (21:39)
[2018-09-25] MEDS: TRAMADOL HCL 50 MG TABLET PO PRN ×4 (02:30→21:00)
[2018-09-25] MEDS: ACETAMINOPHEN 500 MG TAB PO SCH ×3 (05:47→21:02)
[2018-09-25 06:24] LABS: Hematocrit (blood only) 26.4 % (37-47); Hemoglobin 8.2 g/dL (12.0-16.0); Mean Corpuscular Hgb Conc 31.1 g/dL (32-36); Mean Corpuscular Volume 77.6 fL (80-100); RDW Coefficient of Variation 24.7 % (11.5-14.5); RDW Standard Deviation 66.7 fL (36.4-46.3); White Blood Count 1.96 K/uL (4.8-10.8)
[2018-09-25 06:29] LABS: Mean Platelet Volume 8.8 fL (7.4-10.4); Platelet Count 38 K/uL (130-400)
[2018-09-25 06:54] LABS: BUN Creatinine Ratio 14.6 (10-20); Calcium 7.9 mg/dl (8.5-10.1); Creatinine Clr Calc Pharmacy 115.7 ml/min; Est GFR (African American) 127.2; Est GFR (Non-African American) 109.7; Potassium 3.9 mmol/L (3.5-5.1)
[2018-09-25 07:13] LABS: Anisocytosis Present; Basophilic Stippling 1+; Basophils # (auto) 0.03 K/uL (0-0.2); Basophils % (auto) 1.5 %; Eosinophils # (auto) 0.09 K/uL (0-0.5); Eosinophils % (auto) 4.6 %; Hypochromasia Present; Lymphocytes # (auto) 0.45 K/uL (1.2-3.4); Monocytes # (auto) 0.39 K/uL (0.11-0.59); Monocytes % (auto) 19.9 %; Polychromasia 1+
[2018-09-25] MEDS: GABAPENTIN 300 MG CAP PO SCH ×3 (08:45→21:01)
[2018-09-25] MEDS: FOLIC ACID 1 MG TAB PO SCH (08:45)
[2018-09-25] MEDS: PANTOprazole 40 MG TAB PO SCH ×2 (08:45→21:01)
[2018-09-25] MEDS: THIAMINE HCL 100 MG TAB PO SCH (08:45)
[2018-09-25] MEDS: CITALOPRAM 20 MG TAB PO SCH (08:45)
[2018-09-25] MEDS: PANCREAZE (LIPASE 10,500U) CAP PO SCH ×3 (08:46→17:00)
[2018-09-25] MEDS: LORAZEPAM 1MG IV ACTIVE PROTOCOL IV PRN (08:47)
--- NOTE | 2018-09-25 08:48 | Gastroenterology Progress Note ---
Date of Service September 25, 2018 Assessment & Plan (1) Pancytopenia: Likely from bone marrow suppression, related to alcohol. Present on Admission?: Yes (2) Alcoholism: Recommend OP rehab. Needs complete alcohol cessation. Present on Admission?: Yes (3) Acute pancreatitis: Again, from alcohol. Recommend complete alcohol cessation. Present on Admission?: Yes (4) Alcoholic cirrhosis: We would be happy to provide OP GI follow up, but pt states that she would not be able to get a ride to our office. She also tells me that she will most likely continue to drink. GI will sign off. Present on Admission?: Yes Supervising Physician Co-Signing Physician Notes 53 yo fm with a history of alcoholic hepatitis/alcoholic cirrhosis admitted with abdominal pain - found to have pancreatitis. She reports she has been actively drinking until admission PE - alert and oriented to person/place/time, abd - soft nt nd +bs MELD stable Pancytopenia likely from underlying bone marrow suppression from alcohol use. Strongly encourage etoh cessation. Agree with further plan of care as per Mio's assessment and plan. Subjective Ms. Siena Saldana is a 53 yr old female with a hx NSTEMI, GI bleed, prior alcoholic hepatitis, cirrhosis (on imaging), continuing to drink, brought to the ED on 09/21 when found to be laying on the floor and was found by a friend. On arrival, acutely intoxicated, in [place] - resolved. Maddrey was 6 on arrival and further improved so no need for steroid tx of ETOH hepatitis. Labs today: WBC 3.8, Hb 12, Hct 34, Glucose 149, Na 139, K 3.2, BUN 5, Cr 0.6. Review of Systems Review of Systems: ROS: Gen: No weakness, but generalized pain from recent fall and c/o chronic pain since an accident yrs ago. No fevers, weight loss Eyes: No eye redness, or pain, no recent vision changes Resp: No SOB, no cough Cardio: No palpitations/irregular beats, no chest pain GI: No abdominal pain, no nausea/vomiting : Denies pain on urination Skin: + ecchymosis from falls. No jaundice, itching or new rashes Physical Exam Constitutional: WD/WN, vitals as above + ill appearing and + thin chronically ill appearing Eyes: PERRL, conjunctivae normal, anicteric sclerae ENMT: external ear and nose normal, oropharynx normal Neck: trachea midline, no thyromegaly Respiratory: normal respiratory effort, lungs clear to auscultation Cardiovascular: RRR, no murmur, no edema Gastrointestinal (Abdomen): Percussion/Palpation: + abdomen tender (c/o diffuse tenderness on palpation but no rebound or guarding) and abdomen soft Skin: no rashes, warm and dry normal turgor ecchymosis Neurologic: patellar DTR's 2+ bilat, sensation intact Psychiatric: A+Ox3, euthymic affect Lymphatic: no cervical or axillary lymphadenopathy Results & Data Vital Signs (Past 12 Hours) Vital Signs Temp Pulse Resp BP Pulse Ox 09/25/18 07:28 37.4 C 88 26 H 130/89 96 09/25/18 04:00 37.1 C 82 19 131/88 92 09/24/18 23:57 36.9 C 84 19 123/80 98 Diagnostic Findings Non contrast CT 09/21: 1. Suboptimal examination without oral and IV contrast. 2. There is no evidence of solid organ injury in the abdomen or pelvis on this unenhanced examination. 3. A Dial catheter is located within the vagina. Repositioning is indicated. 4. Findings suggest acute pancreatitis. Correlation with clinical findings and serum amylase/lipase levels is recommended. 5. There is evidence of cirrhosis and severe steatosis of the liver. 6. Left-sided nephrolithiasis. 7. Underdistention versus wall thickening is noted in the right colon. This may represent portal colopathy. Correlate clinically for evidence of a mild colitis. 8. Numerous chronic fractures as above. No acute fracture is clearly seen. 9. Additional findings as above. (1) Acute pancreatitis Acute pancreatitis complication: unspecified Pancreatitis type: alcohol induced Qualified Code(s): K85.20 - Alcohol induced acute pancreatitis without necrosis or infection
[2018-09-25] MEDS ORDERED: GABAPENTIN 600 MG TAB PO SCH (12:00)
[2018-09-25] MEDS: cefTRIAXone SODIUM 1,000 MG in DEXTROSE 5% 50 ML IV SCH (15:15)
--- NOTE | 2018-09-25 18:30 | Hospitalist Progress Note ---
Date of Service September 25, 2018 Assessment & Plan (1) Pancytopenia: Likely due to bone marrow suppression from alcohol use S/P 1 unit PRBC Monitor CBC Manager Recruitment to quit drinking (2) Acute metabolic encephalopathy: Mental status improved Monitor Anxiety disorder: On Celexa Started on Buspar Difficult to treat in setting of Alcohol abuse (3) Alcohol withdrawal: Ativan PRN Also on gabapentin Continue thiamine, folic acid (4) Acute kidney injury: In setting of Rhabdomyolysis Resolved monitor renal function Avoid Nephrotoxic agents as able CK levels improved (5) Metabolic acidosis: resolved (6) Acute pancreatitis: Likely secondary to alcohol use. Continue supportive care measures Appreciate GI Input Manager Recruitment to quit alcohol use (7) Rhabdomyolysis: Prolonged immobilization at home prior to arrival CK levels improved Received IV fluids (8) UTI (urinary tract infection): Urine Cx:Pansensitive Klebsiella Continue Rocephin (9) DVT prophylaxis: SCDs Re: severe thrombocytopenia. Code Status Full code Disposition PT/OT prior to discharge Subjective Patient is seen and examined at bedside Complains of generalized pain, nausea Also reports anxiety Denies any chest pain, SOB, dysuria Offers no other complaints Review of Systems Review of Systems: All systems reviewed & are unremarkable except as noted in HPI & below Physical Exam 2 Physical Exam: Physical Exam: Vitals signs as noted above General Appearance:Moderately built, no apparent distress, fatigue Head: normocephalic, Atraumatic Eyes: normal inspection, EOMI Neck: supple, Trachea midline Respiratory/Chest: Decreased breath sounds, CTA Cardiovascular: S1, S2, No murmur Abdomen/GI:Soft, generalized tender, No guarding/rigidity, Bowel sounds present Extremities/Musculoskelatal:normal inspection, no edema Neurologic/Psych:AAOX3, grossly no focal neurological deficits Skin: normal color, warm Results & Data Vital Signs (Past 12 Hours) Vital Signs Temp Pulse Resp BP BP Pulse Ox 09/25/18 15:04 37.1 C 92 H 18 136/89 93 09/25/18 12:32 36.9 C 93 H 18 146/94 H 95 09/25/18 07:28 37.4 C 88 26 H 130/89 96 Laboratory Results Short CBC 09/25/18 Range/Units 06:07 WBC 1.96 L (4.8-10.8) K/uL Hgb 8.2 L (12.0-16.0) g/dL Hct 26.4 L (37-47) % Plt Count 38 L (130-400) K/uL BMP 09/25/18 06:07 Sodium 144 Potassium 3.9 D Chloride 109 H Carbon Dioxide 29 BUN 7 Creatinine 0.50 L Glucose 139 H Calcium 7.9 L Cardiac Enzymes 09/25/18 Range/Units 06:07 Total Creatine Kinase 288 H (26-192) U/L (1) Acute pancreatitis Acute pancreatitis complication: unspecified Pancreatitis type: alcohol induced Qualified Code(s): K85.20 - Alcohol induced acute pancreatitis without necrosis or infection (2) Rhabdomyolysis Rhabdomyolysis type: non-traumatic Qualified Code(s): M62.82 - Rhabdomyolysis
[2018-09-26] MEDS: ACETAMINOPHEN 500 MG TAB PO SCH ×3 (05:30→21:05)
[2018-09-26] MEDS: TRAMADOL HCL 50 MG TABLET PO PRN ×3 (05:30→20:51)
[2018-09-26 07:26] LABS: Mean Corpuscular Hgb Conc 30.6 g/dL (32-36)
[2018-09-26 07:42] LABS: Hematocrit (blood only) 27.1 % (37-47); Hemoglobin 8.3 g/dL (12.0-16.0); Mean Corpuscular Volume 78.3 fL (80-100); RDW Coefficient of Variation 25.8 % (11.5-14.5); Red Blood Count 3.46 M/uL (4.2-5.4); White Blood Count 1.36 K/uL (4.8-10.8)
[2018-09-26] MEDS: PANCREAZE (LIPASE 10,500U) CAP PO SCH ×3 (07:46→17:12)
[2018-09-26] MEDS: FOLIC ACID 1 MG TAB PO SCH (07:46)
[2018-09-26] MEDS: THIAMINE HCL 100 MG TAB PO SCH (07:46)
[2018-09-26] MEDS: PANTOprazole 40 MG TAB PO SCH ×2 (07:46→19:59)
[2018-09-26] MEDS: GABAPENTIN 300 MG CAP PO SCH ×3 (07:46→19:59)
[2018-09-26] MEDS: CITALOPRAM 20 MG TAB PO SCH (07:46)
[2018-09-26 07:59] LABS: Calcium 8.3 mg/dl (8.5-10.1); Creatinine Clr Calc Pharmacy 115.7 ml/min; Est GFR (African American) 127.2; Est GFR (Non-African American) 109.7; Potassium 3.7 mmol/L (3.5-5.1)
[2018-09-26 08:16] LABS: Platelet Count 48 K/uL (130-400)
[2018-09-26 08:30] LABS: Anisocytosis Present; Basophilic Stippling 1+; Basophils # (auto) 0.02 K/uL (0-0.2); Basophils % (auto) 1.5 %; Eosinophils # (auto) 0.05 K/uL (0-0.5); Eosinophils % (auto) 3.7 %; Hypochromasia Present; Immature Granulocytes # (auto) 0.01 K/uL (0.00-0.02); Immature Granulocytes % (auto) 0.7 %; Lymphocytes # (auto) 0.46 K/uL (1.2-3.4); Lymphocytes % (auto) 33.8 %; Monocytes # (auto) 0.42 K/uL (0.11-0.59); Monocytes % (auto) 30.9 %; Neutrophils % (auto) 29.4 %; Target Cells 1+
[2018-09-26] MEDS: cefUROXime axetil 250 MG TABLET PO SCH ×2 (14:51→19:59)
[2018-09-26 15:26] LABS: Folate (Folic Acid) 18.46 ng/ml (>5.38)
--- NOTE | 2018-09-26 16:54 | Hospitalist Progress Note ---
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 Bryant (2) Acute metabolic encephalopathy: Mental status improved Monitor Anxiety disorder: On Celexa Difficult to treat in setting of Alcohol abuse Patient admits to being noncompliant with Celexa Counseled about medication compliance (3) Alcohol withdrawal: Ativan PRN Also on gabapentin Continue thiamine, folic acid (4) Acute kidney injury: In setting of Rhabdomyolysis Resolved monitor renal function Avoid Nephrotoxic agents as able CK levels improved (5) Metabolic acidosis: resolved (6) Acute pancreatitis: Likely secondary to alcohol use. Continue supportive care measures Appreciate GI Input Classroom Technology Coach to quit alcohol use (7) Rhabdomyolysis: Prolonged immobilization at home prior to arrival CK levels improved Received IV fluids (8) UTI (urinary tract infection): Urine Cx:Pansensitive Klebsiella Continue Rocephin (9) DVT prophylaxis: SCDs Re: severe thrombocytopenia. Code Status Full code Disposition PT/OT: Needs Home with Home Health Subjective Patient is seen and examined at bedside Continues to have generalized pain No new complaints Discussed with oncology today Also reports anxiety Denies any chest pain, SOB, dysuria Review of Systems Review of Systems: All systems reviewed & are unremarkable except as noted in HPI & below Physical Exam Physical Exam: Physical Exam: Vitals signs as noted above General Appearance:Moderately built, no apparent distress, fatigue Head: normocephalic, Atraumatic Eyes: normal inspection, EOMI Neck: supple, Trachea midline Respiratory/Chest: Decreased breath sounds, CTA Cardiovascular: S1, S2, No murmur Abdomen/GI:Soft, generalized tender, No guarding/rigidity, Bowel sounds present Extremities/Musculoskelatal:normal inspection, no edema Neurologic/Psych:AAOX3, grossly no focal neurological deficits Skin: normal color, warm Results & Data Vital Signs (Past 12 Hours) Vital Signs Temp Pulse Resp BP Pulse Ox 09/26/18 15:05 36.9 C 76 16 122/87 96 09/26/18 12:00 36.7 C 90 16 128/85 95 09/26/18 07:13 36.8 C 89 18 119/81 95 Laboratory Results Short CBC 09/26/18 Range/Units 07:03 WBC 1.36 L (4.8-10.8) K/uL Hgb 8.3 L (12.0-16.0) g/dL Hct 27.1 L (37-47) % Plt Count 48 L (130-400) K/uL BMP 09/26/18 07:03 Sodium 142 Potassium 3.7 Chloride 108 H Carbon Dioxide 27 BUN 10 Creatinine 0.50 L Glucose 133 H Calcium 8.3 L (1) Acute pancreatitis Acute pancreatitis complication: unspecified Pancreatitis type: alcohol induced Qualified Code(s): K85.20 - Alcohol induced acute pancreatitis without necrosis or infection (2) Rhabdomyolysis Rhabdomyolysis type: non-traumatic Qualified Code(s): M62.82 - Rhabdomyolysis
[2018-09-27] MEDS ORDERED: GABAPENTIN 600 MG TAB PO SCH
[2018-09-27] MEDS: ACETAMINOPHEN 500 MG TAB PO SCH ×3 (05:25→20:57)
[2018-09-27] MEDS: ONDANSETRON INJ 2 MG/ML 2 ML VIAL IV PRN ×3 (05:39→22:33)
[2018-09-27 07:17] LABS: Hemoglobin 8.9 g/dL (12.0-16.0); Mean Corpuscular Hgb Conc 31.8 g/dL (32-36); Mean Corpuscular Volume 77.3 fL (80-100); RDW Coefficient of Variation 26.4 % (11.5-14.5); Red Blood Count 3.62 M/uL (4.2-5.4); White Blood Count 1.52 K/uL (4.8-10.8)
[2018-09-27] MEDS: TRAMADOL HCL 50 MG TABLET PO PRN ×2 (07:40→18:13)
[2018-09-27] MEDS: PANCREAZE (LIPASE 10,500U) CAP PO SCH ×3 (07:44→16:42)
[2018-09-27 07:45] LABS: BUN Creatinine Ratio 22.5 (10-20); Calcium 8.2 mg/dl (8.5-10.1); Creatinine Clr Calc Pharmacy 144.7 ml/min; Est GFR (African American) 136.9; Est GFR (Non-African American) 118.1; Potassium 3.5 mmol/L (3.5-5.1)
[2018-09-27] MEDS: PANTOprazole 40 MG TAB PO SCH ×2 (07:45→20:57)
[2018-09-27] MEDS: GABAPENTIN 300 MG CAP PO SCH ×3 (07:46→20:57)
[2018-09-27] MEDS: FOLIC ACID 1 MG TAB PO SCH (07:46)
[2018-09-27] MEDS: cefUROXime axetil 250 MG TABLET PO SCH ×2 (07:46→20:56)
[2018-09-27] MEDS: THIAMINE HCL 100 MG TAB PO SCH (07:46)
[2018-09-27 08:50] LABS: Mean Platelet Volume 9.4 fL (7.4-10.4); Platelet Count 61 K/uL (130-400)
[2018-09-27 08:52] LABS: Anisocytosis Present; Basophils # (auto) 0.02 K/uL (0-0.2); Basophils % (auto) 1.3 %; Eosinophils # (auto) 0.04 K/uL (0-0.5); Eosinophils % (auto) 2.6 %; Hypochromasia Present; Lymphocytes # (auto) 0.44 K/uL (1.2-3.4); Lymphocytes % (auto) 28.9 %; Monocytes # (auto) 0.54 K/uL (0.11-0.59); Monocytes % (auto) 35.5 %; Neutrophils # (auto) 0.48 K/uL (1.4-6.5); Neutrophils % (auto) 31.7 %; Smudge Cells Present
[2018-09-27] MEDS: CITALOPRAM 20 MG TAB PO SCH (09:35)
[2018-09-27 17:02] LABS: Ethylene Glycol <10.0 mcg/mL (<10.0); Methyl Alcohol Level NEGATIVE <5 MG/DL (NONE DETECTED)
[2018-09-27] MEDS: SUCRALFATE 1 GM TAB PO SCH ×2 (17:45→20:56)
--- NOTE | 2018-09-27 18:26 | Hospitalist Progress Note ---
Date of Service September 27, 2018 Assessment & Plan (1) Pancytopenia: Neutropenia Likely due to bone marrow suppression from alcohol use S/P 1 unit PRBC Has chronic's pancytopenia--reviewed old records Had splenomegaly on prior imaging studies Normal folate, vitamin B12 levels Counselled to quit drinking alcohol Isolation precautions for neutropenia Discussed with oncology Dr. Bryant Neutropenia slowly improving Diarrhea: Check stool for C. difficile (2) Acute metabolic encephalopathy: Mental status improved Monitor Anxiety disorder: On Celexa Difficult to treat in setting of Alcohol abuse Patient admits to being noncompliant with Celexa Counseled about medication compliance (3) Alcohol withdrawal: Ativan PRN Also on gabapentin Continue thiamine, folic acid (4) Acute kidney injury: In setting of Rhabdomyolysis Resolved monitor renal function Avoid Nephrotoxic agents as able CK levels improved (5) Metabolic acidosis: resolved (6) Acute pancreatitis: Likely secondary to alcohol use. 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 Code Status Full code Disposition PT/OT: Needs Home with Home Health Subjective Patient is seen and examined at bedside Feels tired today Complains of generalized pain, nausea Also reports diarrhea Denies any chest pain, SOB, dysuria, abd pain Review of Systems Review of Systems: All systems reviewed & are unremarkable except as noted in HPI & below Physical Exam Physical Exam: Physical Exam: Vitals signs as noted above General Appearance:Moderately built, no apparent distress, fatigue Head: normocephalic, Atraumatic Eyes: normal inspection, EOMI Neck: supple, Trachea midline Respiratory/Chest: Decreased breath sounds, CTA Cardiovascular: S1, S2, No murmur Abdomen/GI:Soft, generalized tender, No guarding/rigidity, Bowel sounds present Extremities/Musculoskelatal:normal inspection, no edema Neurologic/Psych:AAOX3, grossly no focal neurological deficits Skin: normal color, warm Results & Data Vital Signs (Past 12 Hours) Vital Signs Temp Pulse Pulse Pulse Resp BP Pulse Ox 09/27/18 18:11 36.9 C 09/27/18 16:39 37.7 C H 76 18 127/80 96 09/27/18 16:04 37.0 C 73 20 125/80 96 09/27/18 15:33 79 09/27/18 11:50 37.2 C 69 18 130/78 96 09/27/18 08:00 68 09/27/18 07:11 36.9 C 74 16 118/74 93 Laboratory Results Short CBC 09/27/18 Range/Units 07:02 WBC 1.52 L (4.8-10.8) K/uL Hgb 8.9 L (12.0-16.0) g/dL Hct 28.0 L (37-47) % Plt Count 61 L (130-400) K/uL BMP 09/27/18 07:02 Sodium 142 Potassium 3.5 Chloride 109 H Carbon Dioxide 25 BUN 9 Creatinine 0.40 L Glucose 91 Calcium 8.2 L (1) Acute pancreatitis Acute pancreatitis complication: unspecified Pancreatitis type: alcohol induced Qualified Code(s): K85.20 - Alcohol induced acute pancreatitis without necrosis or infection (2) Rhabdomyolysis Rhabdomyolysis type: non-traumatic Qualified Code(s): M62.82 - Rhabdomyolysis
[2018-09-28] MEDS: TRAMADOL HCL 50 MG TABLET PO PRN ×2 (03:39→12:20)
[2018-09-28] MEDS: ONDANSETRON INJ 2 MG/ML 2 ML VIAL IV PRN ×3 (06:11→20:09)
[2018-09-28] MEDS: ACETAMINOPHEN 500 MG TAB PO SCH ×3 (06:11→21:02)
[2018-09-28 06:25] LABS: Mean Corpuscular Hgb Conc 33.1 g/dL (32-36)
[2018-09-28 06:36] LABS: Hematocrit (blood only) 26.6 % (37-47); Hemoglobin 8.8 g/dL (12.0-16.0); Mean Corpuscular Volume 78.2 fL (80-100); RDW Coefficient of Variation 26.6 % (11.5-14.5); RDW Standard Deviation 76.9 fL (36.4-46.3); White Blood Count 1.54 K/uL (4.8-10.8)
[2018-09-28 06:51] LABS: BUN Creatinine Ratio 27.2 (10-20); Calcium 7.7 mg/dl (8.5-10.1); Creatinine Clr Calc Pharmacy 131.5 ml/min; Est GFR (African American) 132.6; Est GFR (Non-African American) 114.4; Potassium 3.4 mmol/L (3.5-5.1)
[2018-09-28 07:01] LABS: Platelet Count 91 K/uL (130-400)
[2018-09-28 07:49] LABS: Anisocytosis Present; Giant Platelets 2+; Hypochromasia Present; Polychromasia 1+
[2018-09-28 08:01] LABS: ALC (manual) 0.61 K/uL (1.2-3.4); Basophils # (manual) 0.07 K/uL (0-0.2); Basophils % (manual) 4.4 %; Eosinophils # (manual) 0.04 K/uL (0-0.5); Eosinophils % (manual) 2.7 %; Lymphocytes # (manual) 0.61 K/uL (1.2-3.4); Lymphocytes % (manual) 39.8 %; Monocytes % (manual) 19.5 %; Neutrophils % (manual) 33.6 %
[2018-09-28] MEDS: PANTOprazole 40 MG TAB PO SCH ×2 (08:18→20:22)
[2018-09-28] MEDS: MULTIVITAMIN TAB PO SCH (08:18)
[2018-09-28] MEDS: SUCRALFATE 1 GM TAB PO SCH ×4 (08:19→20:22)
[2018-09-28] MEDS: THIAMINE HCL 100 MG TAB PO SCH (08:19)
[2018-09-28] MEDS: PANCREAZE (LIPASE 10,500U) CAP PO SCH ×3 (08:19→17:40)
[2018-09-28] MEDS: GABAPENTIN 300 MG CAP PO SCH ×3 (08:19→20:23)
[2018-09-28] MEDS: cefUROXime axetil 250 MG TABLET PO SCH ×2 (08:19→20:21)
[2018-09-28] MEDS: FOLIC ACID 1 MG TAB PO SCH (08:19)
[2018-09-28] MEDS: CITALOPRAM 20 MG TAB PO SCH (08:19)
[2018-09-28] MEDS ORDERED: FERROUS SULFATE 325 MG TAB PO SCH (09:00)
--- NOTE | 2018-09-28 13:40 | XRay Report ---
XR KUB/Abdomen 1 view CLINICAL HISTORY: Abdominal pain pain COMPARISON STUDY: 08/03/2018 FINDINGS: Nonobstructive bowel pattern. Postoperative changes involving the left hip as well as mid a nd upper abdomen. Bilateral stimulator battery pack overlying the right flank. IMPRESSION: No acute process. Postoperative changes noted. The above report was generated using voice recognition software. It may contain grammatical, syntax or spelling errors. Electronically signed by: Mj Smith M.D. 09/28/2018 1:39 PM
[2018-09-28] MEDS: LACTOBACILLUS ACIDOPHILUS (FLORANEX) TAB PO SCH ×2 (17:40→20:20)
[2018-09-28] MEDS ORDERED: POTASSIUM CHLORIDE 20 MEQ TABCR PO STA (18:24)
[2018-09-28] MEDS ORDERED: SODIUM CHLORIDE 0.9% 500 ML IV ONE (18:26)
--- NOTE | 2018-09-28 18:31 | Hospitalist Progress Note ---
Date of Service September 28, 2018 Assessment & Plan (1) Pancytopenia: Neutropenia Likely due to bone marrow suppression from alcohol use S/P 1 unit PRBC Has chronic's pancytopenia--reviewed old records Had splenomegaly on prior imaging studies Normal folate, vitamin B12 levels Counselled to quit drinking alcohol Isolation precautions for neutropenia Discussed with oncology Dr. Bryant Neutropenia slowly improving Diarrhea: Likely due to antibiotics. ? From Iron supplements Recheck stool for C. difficile if recurrence Hold Iron supplements To complete Abx today (2) Acute metabolic encephalopathy: Mental status improved Monitor Anxiety disorder: On Celexa Difficult to treat in setting of Alcohol abuse Patient admits to being noncompliant with Celexa Counseled about medication compliance (3) Alcohol withdrawal: Ativan PRN Also on gabapentin Continue thiamine, folic acid (4) Acute kidney injury: In setting of Rhabdomyolysis Resolved monitor renal function Avoid Nephrotoxic agents as able CK levels improved (5) Metabolic acidosis: resolved (6) Acute pancreatitis: Likely secondary to alcohol use. 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 Code Status Full code Disposition PT/OT: Needs Home with Home Health Subjective Patient is seen and examined at bedside States having nausea, dizziness and abdominal pain today KUB: no acute findings Also reports diarrhea Denies any chest pain, SOB, dysuria Review of Systems Review of Systems: All systems reviewed & are unremarkable except as noted in HPI & below Physical Exam Physical Exam: Physical Exam: Vitals signs as noted above General Appearance:Moderately built, no apparent distress, fatigue Head: normocephalic, Atraumatic Eyes: normal inspection, EOMI Neck: supple, Trachea midline Respiratory/Chest: Decreased breath sounds, CTA Cardiovascular: S1, S2, No murmur Abdomen/GI:Soft, mild generalized tender, No guarding/rigidity, Bowel sounds present Extremities/Musculoskelatal:normal inspection, no edema Neurologic/Psych:AAOX3, grossly no focal neurological deficits Skin: normal color, warm Results & Data Vital Signs (Past 12 Hours) Vital Signs Temp Pulse Resp BP Pulse Ox 09/28/18 15:35 36.9 C 71 18 99/66 L 94 09/28/18 07:44 36.8 C 63 16 103/65 96 Laboratory Results Short CBC 09/28/18 Range/Units 05:56 WBC 1.54 L (4.8-10.8) K/uL Hgb 8.8 L (12.0-16.0) g/dL Hct 26.6 L (37-47) % Plt Count 91 L (130-400) K/uL BMP 09/28/18 05:56 Sodium 142 Potassium 3.4 L Chloride 112 H Carbon Dioxide 25 BUN 12 Creatinine 0.44 L Glucose 114 H Calcium 7.7 L (1) Acute pancreatitis Acute pancreatitis complication: unspecified Pancreatitis type: alcohol induced Qualified Code(s): K85.20 - Alcohol induced acute pancreatitis without necrosis or infection (2) Rhabdomyolysis Rhabdomyolysis type: non-traumatic Qualified Code(s): M62.82 - Rhabdomyolysis
[2018-09-29] MEDS: TRAMADOL HCL 50 MG TABLET PO PRN ×2 (00:06→11:15)
[2018-09-29] MEDS: PROMETHAZINE HCL 12.5 MG in SODIUM CHLORIDE 0.9% 50 ML IV PRN ×2 (01:52→09:36)
[2018-09-29] MEDS: ONDANSETRON INJ 2 MG/ML 2 ML VIAL IV PRN ×2 (06:21→19:40)
[2018-09-29] MEDS: SUCRALFATE 1 GM TAB PO SCH ×2 (07:54→12:15)
[2018-09-29] MEDS: ACETAMINOPHEN 500 MG TAB PO SCH ×2 (07:55→14:40)
[2018-09-29 08:10] LABS: Mean Corpuscular Hgb Conc 30.8 g/dL (32-36)
[2018-09-29 08:34] LABS: Hematocrit (blood only) 28.6 % (37-47); Hemoglobin 8.8 g/dL (12.0-16.0); Mean Corpuscular Volume 78.6 fL (80-100); RDW Coefficient of Variation 26.7 % (11.5-14.5); RDW Standard Deviation 77.1 fL (36.4-46.3); Red Blood Count 3.64 M/uL (4.2-5.4); White Blood Count 1.93 K/uL (4.8-10.8)
[2018-09-29 08:40] LABS: Calcium 8.4 mg/dl (8.5-10.1); Creatinine Clr Calc Pharmacy 115.7 ml/min; Est GFR (African American) 127.2; Est GFR (Non-African American) 109.7; Potassium 3.6 mmol/L (3.5-5.1)
[2018-09-29 09:06] LABS: Mean Platelet Volume 10.9 fL (7.4-10.4); Platelet Count 129 K/uL (130-400)
[2018-09-29 09:09] LABS: Basophils # (auto) 0.02 K/uL (0-0.2); Eosinophils # (auto) 0.04 K/uL (0-0.5); Eosinophils % (auto) 2.1 %; Giant Platelets 1+; Hypochromasia Present; Immature Granulocytes # (auto) 0.02 K/uL (0.00-0.02); Lymphocytes # (auto) 0.73 K/uL (1.2-3.4); Lymphocytes % (auto) 37.8 %; Monocytes % (auto) 31.1 %; Neutrophils # (auto) 0.52 K/uL (1.4-6.5); Platelet Estimate Normal (Normal)
[2018-09-29] MEDS: LACTOBACILLUS ACIDOPHILUS (FLORANEX) TAB PO SCH ×4 (09:33→20:46)
[2018-09-29] MEDS: PANCREAZE (LIPASE 10,500U) CAP PO SCH ×3 (09:34→16:36)
[2018-09-29] MEDS: FOLIC ACID 1 MG TAB PO SCH (09:52)
[2018-09-29] MEDS: MULTIVITAMIN TAB PO SCH (09:52)
[2018-09-29] MEDS: CITALOPRAM 20 MG TAB PO SCH (09:52)
[2018-09-29] MEDS: THIAMINE HCL 100 MG TAB PO SCH (09:53)
[2018-09-29] MEDS: PANTOprazole 40 MG TAB PO SCH ×2 (09:53→20:46)
[2018-09-29] MEDS: GABAPENTIN 300 MG CAP PO SCH ×3 (09:53→20:46)
[2018-09-29] MEDS: LORAZEPAM 1MG IV ACTIVE PROTOCOL IV PRN (11:38)
[2018-09-29] MEDS ORDERED: SODIUM CHLORIDE 0.9% 1000ML 1,000 ML IV ONE (12:08)
[2018-09-29] MEDS ORDERED: MoRPHine SULFATE 4 MG/ML 1 ML CARP\\VIAL IV STA (13:41)
--- NOTE | 2018-09-29 18:08 | Hospitalist Progress Note ---
Date of Service September 29, 2018 Assessment & Plan (1) Pancytopenia: Neutropenia Likely due to bone marrow suppression from alcohol use S/P 1 unit PRBC Has chronic's pancytopenia--reviewed old records Had splenomegaly on prior imaging studies Normal folate, vitamin B12 levels Counselled to quit drinking alcohol Isolation precautions for neutropenia Discussed with oncology Dr. Bryant Neutropenia slowly improving Monitor CBC Diarrhea: Likely due to antibiotics. Recheck stool for C. difficile if recurrence completed Abx course Diarrhea slowly improving (2) Acute metabolic encephalopathy: Mental status improved Monitor Anxiety disorder: On Celexa Difficult to treat in setting of Alcohol abuse Patient admits to being noncompliant with Celexa Counseled about medication compliance (3) Alcohol withdrawal: Ativan PRN Also on gabapentin Continue thiamine, folic acid (4) Acute kidney injury: In setting of Rhabdomyolysis Resolved monitor renal function Avoid Nephrotoxic agents as able CK levels improved (5) Metabolic acidosis: resolved (6) Acute pancreatitis: Likely secondary to alcohol use. 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 Code Status Full code Disposition PT/OT: Needs Home with Home Health Subjective Patient is seen and examined at bedside Complains of generalized pain, nausea, vomiting and restlessness Diarrhea slowly improving Denies any chest pain, SOB, dysuria No other complaints Normal lipase levels Poor appetite Review of Systems Review of Systems: All systems reviewed & are unremarkable except as noted in HPI & below Physical Exam Physical Exam: Physical Exam: Vitals signs as noted above General Appearance:Moderately built, no apparent distress, fatigue Head: normocephalic, Atraumatic Eyes: normal inspection, EOMI Neck: supple, Trachea midline Respiratory/Chest: Decreased breath sounds, CTA Cardiovascular: S1, S2, No murmur Abdomen/GI:Soft, mild generalized tender, No guarding/rigidity, Bowel sounds present Extremities/Musculoskelatal:normal inspection, no edema Neurologic/Psych:AAOX3, grossly no focal neurological deficits Skin: normal color, warm Results & Data Vital Signs (Past 12 Hours) Vital Signs Temp Pulse Resp BP Pulse Ox 09/29/18 11:39 37.3 C 86 22 164/86 H 96 08/16/19 07:18 36.9 C 70 16 130/72 97 Laboratory Results Short CBC 09/29/18 Range/Units 07:44 WBC 1.93 L (4.8-10.8) K/uL Hgb 8.8 L (12.0-16.0) g/dL Hct 28.6 L (37-47) % Plt Count 129 L (130-400) K/uL BMP 09/29/18 07:44 Sodium 144 Potassium 3.6 Chloride 114 H Carbon Dioxide 24 BUN 12 Creatinine 0.50 L Glucose 82 Calcium 8.4 L (1) Acute pancreatitis Acute pancreatitis complication: unspecified Pancreatitis type: alcohol induced Qualified Code(s): K85.20 - Alcohol induced acute pancreatitis without necrosis or infection (2) Rhabdomyolysis Rhabdomyolysis type: non-traumatic Qualified Code(s): M62.82 - Rhabdomyolysis
[2018-09-29] MEDS: CALCIUM 600MG + VIT D 400 IU TAB PO SCH (20:46)
[2018-09-29 21:46] LABS: INR 2.9 (0.9-1.1); Prothrombin Time 27.2 Seconds (9.0-12.0)
[2018-09-29 22:01] LABS: Albumin Level 3.4 gm/dl (3.4-5.0); Bilirubin,Total 0.6 mg/dl (0.2-1); Calcium 8.4 mg/dl (8.5-10.1); Creatinine Clr Calc Pharmacy 131.5 ml/min; Est GFR (African American) 132.6; Est GFR (Non-African American) 114.4; Globulin 3.3 gm/dl (2.5-4.0); Magnesium 1.9 mg/dl (1.8-2.4); Total Protein 6.7 gm/dl (6.4-8.2)
[2018-09-29] MEDS ORDERED: IOVERSOL 100ml IV PRN (22:02)
--- NOTE | 2018-09-29 22:15 | CT Scan Report ---
CT abd pelvis IV con only CT DOSE: 271.95 mGy.cm HISTORY: Pain worsening abd pain/nv TECHNIQUE: Multiaxial CT images of the abdomen and pelvis were performed following the use of intrave nous contrast. A dose lowering technique was utilized adhering to the principles of ALARA. COMPARISON STUDY: 09/21/2018 FINDINGS: Lung bases are clear. Distended fluid-filled esophagus. Hepatic cirrhosis. Evidence for german or gastroplasty. Cirrhotic liver. Prior cholecystectomy. Interval development of a small amount of as cites surrounding the liver as well as spleen. Improved appearance to the pancreas with diminished peripancreatic infiltrative change. 3 mm nonobstructing calcification lower pole left kidney. Kidneys are negative for hydronephrosis. Trace free fluid within the left and to a lesser extent right paracolic gutter. Bowel pattern is nono bstructive. Trace ascites within the pelvis. Nonobstructive bowel pattern within the pelvis. Bladder is midline. There are no contain calcifications. Prior left hip pinning procedure. Old fractures previously descr ibed are unchanged. IMPRESSION: 1. Mixed findings. 2. Interval development of a small amount of upper abdominal and pelvic ascites. 3. Distended fluid-filled esophagus with moderate distention of the gastric pouch post gastroplasty. 3. Improved findings of pancreatitis. 4. Nonobstructive bowel pattern. The above report was generated using voice recognition software. It may contain grammatical, syntax or spelling errors. Electronically signed by: Mj Smith M.D. 09/29/2018 10:13 PM
[2018-09-29] MEDS: OXYCODONE HCL IR 5 MG TAB (IMMEDIATE RELEASE) PO PRN (22:33)
[2018-09-29] MEDS: METOCLOPRAMIDE HCL INJ 5 MG/ML 2 ML VIAL IV PRN (22:34)
--- NOTE | 2018-09-29 22:46 | Hospitalist Progress Note ---
Date of Service September 29, 2018 Subjective Aware by RN of patient's complaints of worsening upper abdominal pain, nausea, emesis symptoms. Good bowel movement as per RN. CT abdomen pelvis results: 1. Mixed findings. 2. Interval development of a small amount of upper abdominal and pelvic ascites. 3. Distended fluid-filled esophagus with moderate distention of the gastric pouch post gastroplasty. 3. Improved findings of pancreatitis. 4. Nonobstructive bowel pattern. INR 2.9 AP ? SBP hx alcoholic cirrhosis Patient not septic Coagulopathy secondary to liver disease. Check UA IV Ceftriaxone, albumin for possible SBP for now. Update GI of developments in a.m. FFP transfusion for coagulopathy in preparation for possible dx paracentesis. Will relate to AM provider. Results & Data Vital Signs (Past 12 Hours) Vital Signs Temp Pulse Resp BP BP Pulse Ox 09/29/18 19:46 37.2 C 80 20 143/90 H 09/29/18 11:39 37.3 C 86 22 164/86 H 96
[2018-09-29] MEDS: ALBUMIN 25% 50 ML IV SCH (23:19)
[2018-09-29] MEDS ORDERED: ACETAMINOPHEN 325 MG TAB PO PRN (23:19)
[2018-09-29] MEDS ORDERED: SODIUM CHLORIDE 0.9% 250 ML IV PRN (23:20)
[2018-09-30] MEDS: cefTRIAXone SODIUM 1,000 MG in DEXTROSE 5% 50 ML IV SCH ×2 (00:09→23:34)
[2018-09-30 01:31] LABS: Appearance Urine Clear (Clear); Bacteria Urine Automated 1+ (Negative); Blood Urine 2+ (Negative); Color Urine Dark Yellow; Epithelial Cell Urine Auto >30 /lpf (0-5); Glucose Urine UA Negative (Negative); Ketones Urine 1+ (Negative); Leukocyte Esterase Urine Negative (Negative); Nitrite Urine Negative (Negative); Protein Urine Negative (Negative); Specific Gravity Urine > 1.045 (1.000-1.030); Urobilinogen Urine Negative (Negative)
[2018-09-30 01:34] LABS: Bilirubin Urine 2+ (Negative)
[2018-09-30 01:36] LABS: Ictotest Urine Positive (Negative)
[2018-09-30] MEDS: OXYCODONE HCL IR 5 MG TAB (IMMEDIATE RELEASE) PO PRN ×5 (02:26→23:47)
[2018-09-30] MEDS: ALBUMIN 25% 50 ML IV SCH ×2 (06:30→11:24)
[2018-09-30 06:39] LABS: Mean Corpuscular Hgb Conc 30.9 g/dL (32-36)
[2018-09-30 06:48] LABS: INR 1.1 (0.9-1.1); Prothrombin Time 11.6 Seconds (9.0-12.0)
[2018-09-30 06:51] LABS: Hematocrit (blood only) 25.6 % (37-47); Hemoglobin 7.9 g/dL (12.0-16.0); Mean Corpuscular Volume 79.3 fL (80-100); RDW Coefficient of Variation 26.9 % (11.5-14.5); RDW Standard Deviation 77.6 fL (36.4-46.3); Red Blood Count 3.23 M/uL (4.2-5.4); White Blood Count 2.32 K/uL (4.8-10.8)
[2018-09-30 07:04] LABS: Mean Platelet Volume 9.9 fL (7.4-10.4); Platelet Count 124 K/uL (130-400)
[2018-09-30 07:05] LABS: Anisocytosis Present; Basophils # (auto) 0.02 K/uL (0-0.2); Basophils % (auto) 0.9 %; Eosinophils # (auto) 0.03 K/uL (0-0.5); Eosinophils % (auto) 1.3 %; Giant Platelets 2+; Hypochromasia Present; Immature Granulocytes # (auto) 0.01 K/uL (0.00-0.02); Immature Granulocytes % (auto) 0.4 %; Lymphocytes # (auto) 0.49 K/uL (1.2-3.4); Lymphocytes % (auto) 21.1 %; Monocytes # (auto) 0.64 K/uL (0.11-0.59); Monocytes % (auto) 27.6 %; Neutrophils # (auto) 1.13 K/uL (1.4-6.5); Neutrophils % (auto) 48.7 %; Platelet Estimate Normal (Normal); Poikilocytosis Present; Polychromasia 1+
[2018-09-30 07:21] LABS: BUN Creatinine Ratio 26.1 (10-20); Calcium 8.2 mg/dl (8.5-10.1); Creatinine Clr Calc Pharmacy 156.4 ml/min; Est GFR (African American) 140.4; Est GFR (Non-African American) 121.2; Magnesium 1.9 mg/dl (1.8-2.4); Potassium 3.2 mmol/L (3.5-5.1)
[2018-09-30] MEDS: CALCIUM 600MG + VIT D 400 IU TAB PO SCH ×2 (08:27→21:27)
[2018-09-30] MEDS: PANCREAZE (LIPASE 10,500U) CAP PO SCH ×3 (08:27→17:38)
[2018-09-30] MEDS: LACTOBACILLUS ACIDOPHILUS (FLORANEX) TAB PO SCH ×4 (08:27→21:27)
[2018-09-30] MEDS: CITALOPRAM 20 MG TAB PO SCH (08:28)
[2018-09-30] MEDS: MULTIVITAMIN TAB PO SCH (08:28)
[2018-09-30] MEDS: FOLIC ACID 1 MG TAB PO SCH (08:28)
[2018-09-30] MEDS: PANTOprazole 40 MG TAB PO SCH ×2 (08:28→21:27)
[2018-09-30] MEDS: FERROUS SULFATE 325 MG TAB PO SCH (08:28)
[2018-09-30] MEDS: THIAMINE HCL 100 MG TAB PO SCH (08:28)
[2018-09-30] MEDS: GABAPENTIN 300 MG CAP PO SCH ×3 (08:28→21:27)
[2018-09-30] MEDS ORDERED: POTASSIUM CHLORIDE 10 MEQ TABCR PO STA (09:01)
[2018-09-30] MEDS: POTASSIUM CHLORIDE / WTR 10 MEQ/100 ML PLCT IV SCH ×2 (11:08→13:10)
--- NOTE | 2018-09-30 18:27 | Hospitalist Progress Note ---
Date of Service September 30, 2018 Assessment & Plan (1) Pancytopenia: Neutropenia Likely due to bone marrow suppression from alcohol use S/P 1 unit PRBC Has chronic's pancytopenia--reviewed old records Had splenomegaly on prior imaging studies Normal folate, vitamin B12 levels Counselled to quit drinking alcohol Discussed with oncology Dr. Bryant Neutropenia improving Monitor CBC Abdominal Pain Nausea & Vomiting Diarrhea: Likely due to antibiotics. Stool studies: Negative completed Abx course --Repeat CT ABD:Mixed findings.. Interval development of a small amount of upper abdominal and pelvic ascites. Distended fluid-filled esophagus with moderate distention of the gastric pouch post gastroplasty. Improved findings of pancreatitis. Nonobstructive bowel pattern. --GI updated on New findings --Likely EGD as per GI --Started on Ceftriaxone for possible SBP (2) Acute metabolic encephalopathy: Mental status improved Monitor Anxiety disorder: On Celexa Difficult to treat in setting of Alcohol abuse Patient admits to being noncompliant with Celexa Counseled about medication compliance (3) Alcohol withdrawal: Ativan PRN Also on gabapentin Continue thiamine, folic acid (4) Acute kidney injury: In setting of Rhabdomyolysis Resolved monitor renal function Avoid Nephrotoxic agents as able CK levels improved (5) Metabolic acidosis: resolved (6) Acute pancreatitis: Likely secondary to alcohol use. 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 Code Status Full code Disposition PT/OT: Needs Home with Home Health Subjective Patient is seen and examined at bedside Has nausea, denies vomiting Abdominal pain is better today Has Diarrhea overnight Denies any chest pain, SOB, dysuria No other complaints Review of Systems Review of Systems: All systems reviewed & are unremarkable except as noted in HPI & below Physical Exam Physical Exam: Physical Exam: Vitals signs as noted above General Appearance:Moderately built, no apparent distress, fatigue Head: normocephalic, Atraumatic Eyes: normal inspection, EOMI Neck: supple, Trachea midline Respiratory/Chest: Decreased breath sounds, CTA Cardiovascular: S1, S2, No murmur Abdomen/GI:Soft, mild generalized tender, No guarding/rigidity, Bowel sounds present Extremities/Musculoskelatal:normal inspection, no edema Neurologic/Psych:AAOX3, grossly no focal neurological deficits Skin: normal color, warm Results & Data Vital Signs (Past 12 Hours) Vital Signs Temp Pulse Pulse Resp BP BP Pulse Ox 09/30/18 14:56 37.3 C 71 18 164/82 H 96 09/30/18 09:45 36.7 C 75 16 151/79 H 09/30/18 09:20 37.1 C 65 16 150/78 H 09/30/18 08:50 36.9 C 78 15 140/80 09/30/18 08:20 36.5 C 70 17 144/81 H 09/30/18 08:05 36.7 C 75 15 157/80 H 09/30/18 07:48 36.5 C 71 16 153/84 H 09/30/18 07:45 36.5 C 71 16 153/84 H 09/30/18 07:24 37 C 71 18 160/80 H 94 09/30/18 06:28 36.8 C 70 18 152/83 H 94 Laboratory Results Short CBC 09/30/18 Range/Units 05:58 WBC 2.32 L (4.8-10.8) K/uL Hgb 7.9 L (12.0-16.0) g/dL Hct 25.6 L (37-47) % Plt Count 124 L (130-400) K/uL BMP 09/29/18 09/30/18 21:25 05:58 Sodium 143 143 Potassium 4.0 3.2 L D Chloride 116 H 110 H Carbon Dioxide 19 L 25 BUN 12 10 Creatinine 0.44 L 0.37 L Glucose 81 73 Calcium 8.4 L 8.2 L Liver Function 09/29/18 Range/Units 21:25 Total Bilirubin 0.6 (0.2-1) mg/dl AST 36 (15-37) U/L ALT 34 (12-78) U/L Alkaline Phosphatase 140 H (45-117) U/L Albumin 3.4 (3.4-5.0) gm/dl Urine 09/30/18 Range/Units 01:15 Urine Color Dark Yellow Urine Appearance Clear (Clear) Urine pH 6.0 (4.5-7.5) Ur Specific [place] > 1.045 H (1.000-1.030) Urine Protein Negative (Negative) Urine Glucose (UA) Negative (Negative) (1) Acute pancreatitis Acute pancreatitis complication: unspecified Pancreatitis type: alcohol induced Qualified Code(s): K85.20 - Alcohol induced acute pancreatitis without necrosis or infection (2) Rhabdomyolysis Rhabdomyolysis type: non-traumatic Qualified Code(s): M62.82 - Rhabdomyolysis
[2018-09-30] MEDS: ONDANSETRON INJ 2 MG/ML 2 ML VIAL IV PRN (19:58)
[2018-10-01] MEDS: METOCLOPRAMIDE HCL INJ 5 MG/ML 2 ML VIAL IV PRN ×4 (02:48→23:25)
[2018-10-01] MEDS: OXYCODONE HCL IR 5 MG TAB (IMMEDIATE RELEASE) PO PRN ×5 (04:35→20:42)
[2018-10-01 08:13] LABS: Hematocrit (blood only) 25.4 % (37-47); Hemoglobin 7.8 g/dL (12.0-16.0); Mean Corpuscular Hgb Conc 30.7 g/dL (32-36); Mean Corpuscular Volume 79.1 fL (80-100); Mean Platelet Volume 9.4 fL (7.4-10.4); Platelet Count 154 K/uL (130-400); RDW Coefficient of Variation 26.7 % (11.5-14.5); RDW Standard Deviation 77.1 fL (36.4-46.3); Red Blood Count 3.21 M/uL (4.2-5.4)
[2018-10-01 08:22] LABS: INR 1.2 (0.9-1.1); Prothrombin Time 11.9 Seconds (9.0-12.0)
[2018-10-01 08:43] LABS: BUN Creatinine Ratio 8.1 (10-20); Calcium 8.2 mg/dl (8.5-10.1); Creatinine Clr Calc Pharmacy 120.6 ml/min; Est GFR (African American) 128.9; Est GFR (Non-African American) 111.2; Potassium 3.1 mmol/L (3.5-5.1)
[2018-10-01] MEDS: ONDANSETRON INJ 2 MG/ML 2 ML VIAL IV PRN ×2 (08:58→20:42)
[2018-10-01] MEDS: FOLIC ACID 1 MG TAB PO SCH (08:59)
[2018-10-01] MEDS: LACTOBACILLUS ACIDOPHILUS (FLORANEX) TAB PO SCH ×4 (08:59→21:38)
[2018-10-01] MEDS: THIAMINE HCL 100 MG TAB PO SCH (08:59)
[2018-10-01] MEDS: MULTIVITAMIN TAB PO SCH (08:59)
[2018-10-01] MEDS: PANCREAZE (LIPASE 10,500U) CAP PO SCH ×3 (08:59→16:16)
[2018-10-01] MEDS: CALCIUM 600MG + VIT D 400 IU TAB PO SCH ×2 (08:59→21:38)
[2018-10-01] MEDS: CITALOPRAM 20 MG TAB PO SCH (08:59)
[2018-10-01] MEDS: FERROUS SULFATE 325 MG TAB PO SCH (08:59)
[2018-10-01] MEDS: GABAPENTIN 300 MG CAP PO SCH ×3 (09:00→21:38)
[2018-10-01] MEDS: PANTOprazole 40 MG TAB PO SCH ×2 (09:00→21:38)
[2018-10-01] MEDS ORDERED: POTASSIUM CHLORIDE 40 MEQ in SODIUM CHLORIDE 0.9% 1000ML 1,000 ML IV ONE (09:30)
--- NOTE | 2018-10-01 15:47 | Hospitalist Progress Note ---
Date of Service October 01, 2018 Assessment & Plan (1) Pancytopenia: Neutropenia Likely due to bone marrow suppression from alcohol use S/P 1 unit PRBC Has chronic's pancytopenia--reviewed old records Had splenomegaly on prior imaging studies Normal folate, vitamin B12 levels Counselled to quit drinking alcohol Discussed with oncology Dr. Bryant Pancytopenia improved Monitor CBC Nausea & Vomiting, diarrhea: Chronic abdominal pain Stool studies: Negative --Repeat CT ABD:Mixed findings.. Interval development of a small amount of upper abdominal and pelvic ascites. Distended fluid-filled esophagus with moderate distention of the gastric pouch post gastroplasty. Improved findings of pancreatitis. Nonobstructive bowel pattern. --GI updated on New findings --Likely EGD as per GI --Continue Ceftriaxone for possible SBP --NPO after midnight (2) Acute metabolic encephalopathy: Encephalopathy resolved Monitor Anxiety disorder: On Celexa Difficult to treat in setting of Alcohol abuse Patient admits to being noncompliant with Celexa Counseled about medication compliance (3) Alcohol withdrawal: Ativan PRN Also on gabapentin Continue thiamine, folic acid (4) Acute kidney injury: In setting of Rhabdomyolysis Resolved monitor renal function Avoid Nephrotoxic agents as able CK levels improved (5) Metabolic acidosis: resolved (6) Acute pancreatitis: Likely secondary to alcohol use. 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 Repeat Lipase levels: normal (7) Rhabdomyolysis: Prolonged immobilization at home prior to arrival CK levels improved Received IV fluids (8) UTI (urinary tract infection): Urine Cx:Pansensitive Klebsiella Repeat Urine Cx: pending Continue Ceftriaxone for now (9) DVT prophylaxis: SCDs Re:Possible procedure in AM Code Status Full code Disposition PT/OT: Needs Home with Home Health Subjective Patient is seen and examined at bedside Diarrhea, abdominal pain slowly improving Has generalized weakness Had nausea, vomiting early this morning Denies any chest pain, SOB, dysuria Review of Systems Review of Systems: All systems reviewed & are unremarkable except as noted in HPI & below Physical Exam Physical Exam: Physical Exam: Vitals signs as noted above General Appearance:Moderately built, no apparent distress, fatigue Head: normocephalic, Atraumatic Eyes: normal inspection, EOMI Neck: supple, Trachea midline Respiratory/Chest: Decreased breath sounds, CTA Cardiovascular: S1, S2, No murmur Abdomen/GI:Soft, mild generalized tender, No guarding/rigidity, Bowel sounds present Extremities/Musculoskelatal:normal inspection, no edema Neurologic/Psych:AAOX3, grossly no focal neurological deficits Skin: normal color, warm Results & Data Vital Signs (Past 12 Hours) Vital Signs Temp Pulse Pulse Resp BP Pulse Ox 10/01/18 14:58 37.3 C 65 151/92 H 94 10/01/18 07:44 36.9 C 67 20 107/67 91 Laboratory Results Short CBC 10/01/18 Range/Units 07:45 WBC 2.40 L (4.8-10.8) K/uL Hgb 7.8 L (12.0-16.0) g/dL Hct 25.4 L (37-47) % Plt Count 154 (130-400) K/uL BMP 10/01/18 07:45 Sodium 144 Potassium 3.1 L Chloride 111 H Carbon Dioxide 27 BUN 4 L D Creatinine 0.48 L Glucose 103 H Calcium 8.2 L (1) Acute pancreatitis Acute pancreatitis complication: unspecified Pancreatitis type: alcohol induced Qualified Code(s): K85.20 - Alcohol induced acute pancreatitis without necrosis or infection (2) Rhabdomyolysis Rhabdomyolysis type: non-traumatic Qualified Code(s): M62.82 - Rhabdomyolysis
[2018-10-01] MEDS: cefTRIAXone SODIUM 1,000 MG in DEXTROSE 5% 50 ML IV SCH (23:25)
[2018-10-02] MEDS: OXYCODONE HCL IR 5 MG TAB (IMMEDIATE RELEASE) PO PRN ×5 (00:42→20:05)
[2018-10-02] MEDS: LORAZEPAM 1MG IV ACTIVE PROTOCOL IV PRN (05:25)
[2018-10-02 07:30] LABS: Hematocrit (blood only) 26.3 % (37-47)
[2018-10-02 08:07] LABS: BUN Creatinine Ratio 6.4 (10-20); Calcium 7.8 mg/dl (8.5-10.1); Creatinine Clr Calc Pharmacy 141.1 ml/min; Est GFR (African American) 135.8; Est GFR (Non-African American) 117.1; Potassium 3.3 mmol/L (3.5-5.1)
[2018-10-02] MEDS: POTASSIUM CHLORIDE / WTR 10 MEQ/100 ML PLCT IV SCH ×2 (09:56→12:05)
[2018-10-02] MEDS: THIAMINE HCL 100 MG TAB PO SCH (09:57)
[2018-10-02] MEDS: PANCREAZE (LIPASE 10,500U) CAP PO SCH ×3 (09:57→16:01)
[2018-10-02] MEDS: CITALOPRAM 20 MG TAB PO SCH (09:57)
[2018-10-02] MEDS: MULTIVITAMIN TAB PO SCH (09:57)
[2018-10-02] MEDS: GABAPENTIN 300 MG CAP PO SCH ×4 (09:57→21:29)
[2018-10-02] MEDS: FOLIC ACID 1 MG TAB PO SCH (09:57)
[2018-10-02] MEDS: PANTOprazole 40 MG TAB PO SCH ×2 (09:57→21:29)
[2018-10-02] MEDS: LACTOBACILLUS ACIDOPHILUS (FLORANEX) TAB PO SCH ×4 (09:57→21:27)
[2018-10-02] MEDS: METOCLOPRAMIDE HCL INJ 5 MG/ML 2 ML VIAL IV PRN (09:57)
[2018-10-02] MEDS: FERROUS SULFATE 325 MG TAB PO SCH (09:57)
[2018-10-02] MEDS: CALCIUM 600MG + VIT D 400 IU TAB PO SCH ×2 (09:57→21:27)
--- NOTE | 2018-10-02 13:33 | Anesthesiology Consultation ---
Date of Service October 02, 2018 Assessment & Plan Chart Review Chart Review: Acceptable Risk for Surgery and Patient NOT seen in Pre Admission Testing Consults Requested none ASA ASA4 Proposed Anesthesia Anesthesia Type: MAC History Surgery Operation Date: 10/25/18 08:30 Proposed Procedures p Esophagogastroduodenoscopy Dr Crawford - Delano Gregory MD Height/Weight Height: 5 ft 5 in Weight: 58.6 kg Allergies Allergy/AdvReac Type Severity Reaction Status Date / Time diphenhydramine Allergy Severe seizures/it Verified 09/21/18 17:17 mya/tremo rs bupropion Allergy Intermediate Palpitation Verified 09/21/18 17:17 s clarithromycin Allergy Intermediate HIVES Verified 09/21/18 17:17 aspirin Allergy Mild hives/ringing Verified 09/21/18 17:17 of ears oxaprozin Allergy Mild nausea/vomi Verified 09/21/18 17:17 ting salicylates Allergy Mild ringing in Verified 09/21/18 17:17 ears/hives tramadol Allergy Mild hives/upset Verified 09/21/18 17:17 stomach Medications Home Medications Medication Instructions Recorded Confirmed Last Taken Creon 1 cap PO TIDM #90 cap 07/04/18 09/21/18 08/17/18 21:00 magnesium oxide 800 mg PO HS #15 tab 07/04/18 09/21/18 08/17/18 08:00 pantoprazole 40 mg PO BID #60 tab 07/04/18 09/21/18 08/17/18 21:00 thiamine HCl (vitamin B1) [Vitamin 100 mg PO QAM #30 tab 07/04/18 09/21/18 08/17/18 05:30 B-1] tramadol 50 mg PO Q6H PRN #14 tab 07/11/18 09/21/18 Unknown Centrum Silver 1 tab PO QAM 08/08/18 09/21/18 08/17/18 08:00 calcium carbonate-vitamin D3 1 tab PO BID 08/08/18 09/21/18 08/17/18 08:00 [Calcium 500 With D] citalopram [Celexa] 10 mg PO QAM 08/08/18 09/21/18 08/17/18 08:00 gabapentin 300 mg PO TID 08/08/18 09/21/18 08/18/18 05:30 hydroxyzine HCl 25 - 50 mg PO BID PRN 08/08/18 09/21/18 08/17/18 21:00 multivitamin with minerals 3 tab PO QAM 08/08/18 09/21/18 08/17/18 08:00 [Hair,Skin and Nails] omeprazole 20 mg PO QAM 08/08/18 09/21/18 08/17/18 21:00 folic acid 1 mg PO DAILY 09/21/18 09/21/18 Unknown loperamide 2 mg PO Q6 PRN 09/21/18 09/21/18 Unknown meloxicam 7.5 mg PO BID PRN 09/21/18 09/21/18 Unknown ondansetron 4 mg TRANSLINGUAL Q8 09/21/18 09/21/18 Unknown sucralfate [Carafate] 1 g PO ACHS 09/21/18 09/21/18 Unknown Active Medications Generic Name Dose Route Start Last Admin Trade Name Freq PRN Reason Stop Dose Admin Lipase/Protease/Amylase 1 cap 09/24/18 17:00 10/02/18 12:05 Pancreaze (Lipase 10,500u) PO 10/24/18 16:59 Not Given TIDM MICHELLE Citalopram Hydrobromide 10 mg 09/24/18 13:15 10/02/18 09:57 Celexa PO 10/24/18 13:14 Not Given QAM [facility] Ferrous Sulfate 325 mg 09/30/18 09:00 10/02/18 09:57 Feosol PO 10/30/18 08:59 Not Given QAM [facility] Folic Acid 1 mg 09/25/18 09:00 10/02/18 09:57 Folvite PO 10/25/18 08:59 Not Given QAM MICHELLE Gabapentin 300 mg 09/24/18 14:00 10/02/18 10:00 Neurontin PO 10/24/18 13:59 300 mg TID MICHELLE Administration Lorazepam 1 mg in 2 mls @ 2 mls/min 09/22/18 09:45 10/02/18 05:25 Ativan IV 10/22/18 09:44 2 mls/min Q1H PRN Administration Symptoms of alcohol withdrawal Protocol Lorazepam 2 mg in 4 mls @ 4 mls/min 09/22/18 09:45 09/23/18 12:46 Ativan IV 10/22/18 09:44 4 mls/min Q1H PRN Administration Symptoms of alcohol withdrawal Protocol Promethazine HCl 12.5 mg/ 50.5 mls @ 202 mls/hr 09/29/18 01:11 09/29/18 09:53 Sodium Chloride IV 10/29/18 01:10 Infused Q6H PRN Infusion Nausea And Vomiting Ceftriaxone Sodium 1,000 mg/ 50 mls @ 100 mls/hr 09/29/18 23:00 10/01/18 23:58 Dextrose IV 10/09/18 22:59 Infused Q24H MICHELLE Infusion Ioversol 91 ml 09/29/18 22:02 09/29/18 22:03 Optiray 320 100ml IV 10/03/18 22:01 1 ml ONCE PRN Administration Interaction Checking Lactobacillus Acidophilus 4 tab 09/28/18 17:00 10/02/18 12:05 Floranex PO 10/28/18 16:59 Not Given QIDM [facility] Metoclopramide HCl 5 mg 09/29/18 21:01 10/02/18 09:57 Reglan IV 10/29/18 21:00 5 mg Q6H PRN Administration Nausea Multivitamins 1 tab 09/22/18 09:00 10/02/18 09:57 Multivitamin Tab PO 10/22/18 08:59 Not Given QAM [facility] Multivitamins/Minerals 1 tab 09/23/18 09:00 10/02/18 09:57 Caltrate Plus PO 10/23/18 08:59 Not Given BID [facility] Ondansetron HCl 4 mg 09/23/18 13:46 10/01/18 20:42 Zofran IV 10/23/18 13:45 4 mg Q8H PRN Administration Nausea Oxycodone HCl 5 mg 09/29/18 21:00 10/02/18 09:56 Roxicodone Immediate Rel PO 10/13/18 20:59 5 mg Q4H PRN Administration Pain Pantoprazole Sodium 40 mg 09/24/18 21:00 10/02/18 09:57 Protonix PO 10/24/18 20:59 Not Given BID [facility] Thiamine HCl 100 mg 09/25/18 09:00 10/02/18 09:57 Vitamin B-1 PO 10/25/18 08:59 Not Given QAM [facility] NPO Date Last Intake of Fluids: 10/01/18 Time Last Intake of Fluids: 23:30 Past Medical History Medical History Lumbago (Chronic) Multiple sclerosis (Chronic) Alcohol abuse Anxiety Cirrhosis Degenerative disc disease Esophageal varices with banding Factitious disorder Fibromyalgia Opiate addiction Pancreatitis Presence of intrathecal pump containing morphine 0.189mg/day and fentanyl 2.52mcg/day miminimal rate per pt "it doesnt work I haven't been able to afford the medication for 3 years now"?? Sedative abuse Seizures None for greater than a year Exercise / Class Metabolic Activity III < 4 Walking/Shop/Light housework Past Family History Family History Other Aneurysm Cancer No family history of adverse response to anesthesia Stroke Past Surgical History Surgical History History of Jeffy-en-Y gastric bypass History of cholecystectomy History of colonoscopy History of esophagogastroduodenoscopy (EGD) History of open reduction and internal fixation (ORIF) procedure left arm/left leg--hardware in place History of tooth extraction all teeth removed History of total hysterectomy with bilateral salpingo-oophorectomy (BSO) Past Anesthesia History No Hx of Anesthesia Complications and No Family Hx of Anesthesia Complications History of PONV No Hx of PONV and No Hx of Motion Sickness Social History Smoking Status: Former smoker Smoking End Date: not sure Hx Alcohol Use: Yes Alcohol type: hard liquor alcohol intake frequency: 3 or more drinks per day Hx Substance Use: No substance use type: does not use Substance Use Type Other:: dilaudid, ativan, pt has indwelling pain pump Physical Exam Vital Signs Last Vital Signs Temp 37.0 C 10/02/18 07:26 Pulse 74 10/02/18 07:26 Resp 17 10/02/18 07:26 BP 133/81 10/02/18 07:26 Pulse Ox 92 10/02/18 07:26 Testing Laboratory Results 10/02/18 07:21 10/02/18 07:21 PT 11.9 Seconds (9.0-12.0) 10/01/18 07:45 INR 1.2 (0.9-1.1) H 10/01/18 07:45 APTT 28.3 Seconds (21.0-31.0) 09/23/18 04:36 Urine Color Dark Yellow 09/30/18 01:15 Urine Appearance Clear (Clear) 09/30/18 01:15 Urine pH 6.0 (4.5-7.5) 09/30/18 01:15 Ur Specific [place] > 1.045 (1.000-1.030) H 09/30/18 01:15 Urine Protein Negative (Negative) 09/30/18 01:15 Urine Glucose (UA) Negative (Negative) 09/30/18 01:15 Urine Ketones 1+ (Negative) H 09/30/18 01:15 Urine Nitrite Negative (Negative) 09/30/18 01:15 Ur Leukocyte Esterase Negative (Negative) 09/30/18 01:15 Urine WBC (Auto) 1-5 /hpf (0-5) 09/30/18 01:15 Urine RBC (Auto) 10-30 /hpf (0-4) H 09/30/18 01:15 U Hyaline Cast (Auto) 1-5 /lpf (0-5) 09/30/18 01:15 U Epithel Cells (Auto) >30 /lpf (0-5) H 09/30/18 01:15 Urine Bacteria (Auto) 1+ (Negative) H 09/30/18 01:15 Blood Type A Positive 09/21/18 17:23 Antibody Screen NEGATIVE 09/21/18 17:23 09/30/18 01:15 Urine Culture - Preliminary Urine,Clean Catch Gram negative bacilli 09/21/18 16:52 Aerobic Blood Culture - Final Blood No growth in Aerobic bottle after 5 days. Anaerobic Blood Culture - Final 09/21/18 17:04 Aerobic Blood Culture - Final Blood No growth in Aerobic bottle after 5 days. Anaerobic Blood Culture - Final No growth in Anaerobic bottle after 5 days. 09/22/18 02:00 Escherichia coli Shiga Toxins Test - Final Stool Stool Culture - Final No Salmonella isolated, No Shigella isolated, No Campylobacter jejuni isolated. 09/21/18 18:45 Urine Culture - Final Urine,Straight Cath Klebsiella pneumoniae 10/02/18 05:28 POC Glucose 97
--- NOTE | 2018-10-02 13:42 | History & Physical Report ---
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 She is hospitalized with alcoholic liver disease, but has noted a return of her obstructive symptoms. Allergies Allergy/AdvReac Type Severity Reaction Status Date / Time diphenhydramine Allergy Severe seizures/it Verified 10/02/18 13:43 mya/tremo rs bupropion Allergy Intermediate Palpitation Verified 10/02/18 13:43 s clarithromycin Allergy Intermediate HIVES Verified 10/02/18 13:43 aspirin Allergy Mild hives/ringing Verified 10/02/18 13:43 of ears oxaprozin Allergy Mild nausea/vomi Verified 10/02/18 13:43 ting salicylates Allergy Mild ringing in Verified 10/02/18 13:43 ears/hives tramadol Allergy Mild hives/upset Verified 10/02/18 13:43 stomach Home Medications Home Medications Medication Instructions Recorded Confirmed Type Creon 1 cap PO TIDM #90 cap 07/04/18 09/21/18 Rx magnesium oxide 800 mg PO HS #15 tab 07/04/18 09/21/18 Rx pantoprazole 40 mg PO BID #60 tab 07/04/18 09/21/18 Rx thiamine HCl (vitamin B1) [Vitamin 100 mg PO QAM #30 tab 07/04/18 09/21/18 Rx B-1] tramadol 50 mg PO Q6H PRN #14 tab 07/11/18 09/21/18 Rx Centrum Silver 1 tab PO QAM 08/08/18 09/21/18 History calcium carbonate-vitamin D3 1 tab PO BID 08/08/18 09/21/18 History [Calcium 500 With D] citalopram [Celexa] 10 mg PO QAM 08/08/18 09/21/18 History gabapentin 300 mg PO TID 08/08/18 09/21/18 History hydroxyzine HCl 25 - 50 mg PO BID PRN 08/08/18 09/21/18 History multivitamin with minerals 3 tab PO QAM 08/08/18 09/21/18 History [Hair,Skin and Nails] omeprazole 20 mg PO QAM 08/08/18 09/21/18 History folic acid 1 mg PO DAILY 09/21/18 09/21/18 History loperamide 2 mg PO Q6 PRN 09/21/18 09/21/18 History meloxicam 7.5 mg PO BID PRN 09/21/18 09/21/18 History ondansetron 4 mg TRANSLINGUAL Q8 09/21/18 09/21/18 History sucralfate [Carafate] 1 g PO ACHS 09/21/18 09/21/18 History Past Med/Surg History Medical History Lumbago (Chronic) Multiple sclerosis (Chronic) Alcohol abuse Anxiety Cirrhosis Degenerative disc disease Esophageal varices with banding Factitious disorder Fibromyalgia Opiate addiction Pancreatitis Presence of intrathecal pump containing morphine 0.189mg/day and fentanyl 2.52mcg/day miminimal rate per pt "it doesnt work I haven't been able to afford the medication for 3 years now"?? 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 Beliefs That Will Affect Care: None marital status: Current Living Situation: Alone Other Information That Helps Us Care for You: No Feels Safe at Home: Yes Safety Concerns: Feels Safe At This Time Smoking Status: Former smoker Smoking End Date: not sure ; Second Hand Exposure: Yes ; Tobacco Cessation Education Requested by Patient: No Hx Alcohol Use: Yes Alcohol type: hard liquor Hx Substance Use: No Physical Exam Constitutional: WD/WN, vitals as above Respiratory: normal respiratory effort, lungs clear to auscultation Cardiovascular: RRR, no murmur, no edema Gastrointestinal (Abdomen): normal bowel sounds, soft, nontender, no hepatosplenomegaly Results & Data Vital Signs (Past 12 Hours) Vital Signs Temp Pulse Resp BP Pulse Ox 10/02/18 07:26 37.0 C 74 17 133/81 92 Code Status & VTE Plan VTE Prophylaxis Plan VTE Prophylaxis will be ordered: Yes
[2018-10-02] MEDS ORDERED: LIDOCAINE HCL 2% 2 ML VIAL/AMP(20MG/ML) INFIL ONE (14:03)
[2018-10-02] MEDS ORDERED: ONDANSETRON INJ 2 MG/ML 2 ML VIAL ONE (14:04)
[2018-10-02] MEDS ORDERED: PROPOFOL IV EMULSION 10 MG/ML 20 ML VIAL IV ONE (14:04)
[2018-10-02] MEDS ORDERED: ATROPINE SULFATE 0.1 MG/ML 10ML SYR IV PRN (14:06)
[2018-10-02] MEDS ORDERED: ePHEDrine sulfate 50 MG/ML AMP IV PRN (14:06)
--- NOTE | 2018-10-02 14:45 | GI REPORT ---
Patient Name: Siena Saldana Procedure Date: 10/02/2018 2:15 PM Date of : 1965 Admit Type: Inpatient Age: 53 Gender: Female Attending MD: Delano Gregory MD Procedure: Upper GI endoscopy Providers: Delano Gregory MD Referring MD: Pita Wolfe Md, Messi Garcia Md Indications: For therapy of post-bariatric anastomotic stenosis, Nausea with vomiting Patient Profile: This is a 53 year old female with alcoholic cirrhosis, s/p banding of varices, s/p RYGB with anastomotic stricture, last dilated to 16.5 mm.. Medicines: Monitored Anesthesia Care Complications: No immediate complications. Estimated blood loss: None. Estimated Blood Loss: Estimated blood loss: none. Procedure: Pre-Anesthesia Assessment: - Prior to the procedure, a History and Physical was performed, and patient medications, allergies and sensitivities were reviewed. The patient's tolerance of previous anesthesia was reviewed. - ASA Grade Assessment: IV - A patient with severe systemic disease that is a constant threat to life. After obtaining informed consent, the endoscope was passed under direct vision. Throughout the procedure, the patient's blood pressure, pulse, and oxygen saturations were monitored continuously. The Scope was introduced through the mouth, and advanced to the jejunum. The upper GI endoscopy was accomplished with ease. The patient tolerated the procedure well. Findings: The upper third of the esophagus and middle third of the esophagus were normal. Grade I, small (< 5 mm) varices were found in the lower third of the esophagus. The Z-line was regular and was found 35 cm from the incisors. A small amount of food (residue) was found in the gastric body. Evidence of a gastric bypass was found. A gastric pouch with a normal size was found. The staple line appeared intact. The gastrojejunal anastomosis was characterized by severe stenosis. This was traversed after dilation. A TTS dilator was passed through the scope. Dilation with a 15-16.5-18 mm pyloric balloon dilator was performed to a maximum diameter of 16,5 mm inflated for five minutes.. The examined jejunum was normal. Impression: - Normal upper third of esophagus and middle third of esophagus. - Grade I and small (< 5 mm) esophageal varices. - Z-line regular, 35 cm from the incisors. - A small amount of food (residue) in the stomach. - Gastric bypass with a normal-sized pouch and intact staple line. 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 Dilated. - Normal examined jejunum. - No specimens collected. Recommendation: - [facility]. Delano Gregory M.D. Delano Gregory MD 10/02/2018 2:44:29 PM This report has been signed electronically. Note Initiated On: 10/02/2018 2:15 PM Number of Addenda: 0 I attest to the content of the Intraoperative Record and orders documented therein, exceptions below {[id number]}
--- NOTE | 2018-10-02 14:58 | Anesthesiology Progress Note ---
Date of Service October 02, 2018 Anesthesia Post Procedure Vital Signs Vital Signs: Temp Pulse Pulse Resp BP BP Pulse Ox 10/02/18 14:43 36.3 C L 86 16 123/72 94 10/02/18 13:53 37.3 C 66 18 142/75 H 92 10/02/18 07:26 37.0 C 74 17 133/81 92 10/01/18 23:47 36.5 C 72 20 120/80 95 Pain Intensity Generalized: Pain Intensity: 9 Abdomen: Pain Intensity: 8 Transfer of Care Handoff Completed per policy Notes Mental Status: alert / awake / arousable Patient Amnestic to Procedure: Yes Nausea / Vomiting: adequately controlled Pain: adequately controlled Airway Patency, RR, SpO2: stable & adequate BP & HR: stable & adequate Hydration State: stable & adequate Anesthetic Complications: no major complications apparent
--- NOTE | 2018-10-02 17:43 | Hospitalist Progress Note ---
Date of Service October 02, 2018 Assessment & Plan (1) Pancytopenia: Neutropenia Likely due to bone marrow suppression from alcohol use S/P 1 unit PRBC Has chronic's pancytopenia--reviewed old records Had splenomegaly on prior imaging studies Normal folate, vitamin B12 levels Counselled to quit drinking alcohol Discussed with oncology Dr. Bryant Pancytopenia improved Monitor CBC Nausea & Vomiting, diarrhea: Secondary to Gastrojejunal anastomosis Severe stenosis. S/P dilatation Chronic abdominal pain Stool studies: Negative --Repeat CT ABD:Mixed findings.. Interval development of a small amount of upper abdominal and pelvic ascites. Distended fluid-filled esophagus with moderate distention of the gastric pouch post gastroplasty. Improved findings of pancreatitis.Nonobstructive bowel pattern. --S/P EGD:Normal upper third of esophagus and middle third of esophagus. Grade I and small (< 5 mm) esophageal varices. Z-line regular, 35 cm from the incisors. A small amount of food (residue) in the stomach. Gastric bypass with a normal- sized pouch and intact staple line. 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 Dilated. Normal examined jejunum. No specimens collected. --Appreciate GI Input --Advance diet as tolerated (2) Acute metabolic encephalopathy: Encephalopathy resolved Monitor Anxiety disorder: On Celexa Difficult to treat in setting of Alcohol abuse Patient admits to being noncompliant with Celexa Counseled about medication compliance (3) Alcohol withdrawal: Ativan PRN Also on gabapentin Continue thiamine, folic acid (4) Acute kidney injury: In setting of Rhabdomyolysis Resolved monitor renal function Avoid Nephrotoxic agents as able CK levels improved (5) Metabolic acidosis: resolved (6) Acute pancreatitis: Likely secondary to alcohol use. 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 Repeat Lipase levels: normal (7) Rhabdomyolysis: Prolonged immobilization at home prior to arrival CK levels improved Received IV fluids (8) UTI (urinary tract infection): Urine Cx:Pansensitive Klebsiella Repeat Urine Cx: Gram Negative bacilli Continue Ceftriaxone for now (9) DVT prophylaxis: SCDs Re:Possible procedure in AM Code Status Full code Disposition PT/OT: Needs Home with Home Health Subjective Patient is seen and examined at bedside Complains of chest tightness earlier today which she attributes to dysphagia Also complains of band like abdominal pain Discussed with GI today Had EGD this morning No diarrhea today Review of Systems Review of Systems: All systems reviewed & are unremarkable except as noted in HPI & below Physical Exam Physical Exam: Physical Exam: Vitals signs as noted above General Appearance:Moderately built, no apparent distress, fatigue Head: normocephalic, Atraumatic Eyes: normal inspection, EOMI Neck: supple, Trachea midline Respiratory/Chest: Decreased breath sounds, CTA Cardiovascular: S1, S2, No murmur Abdomen/GI:Soft, mild generalized tender, No guarding/rigidity, Bowel sounds present Extremities/Musculoskelatal:normal inspection, no edema Neurologic/Psych:AAOX3, grossly no focal neurological deficits Skin: normal color, warm Results & Data Vital Signs (Past 12 Hours) Vital Signs Temp Pulse Resp BP BP Pulse Ox 10/02/18 16:21 36.8 C 61 18 140/87 95 10/02/18 15:13 65 18 155/83 H 93 10/02/18 14:58 67 18 131/80 93 10/02/18 14:43 36.3 C L 86 16 123/72 94 10/02/18 13:53 37.3 C 66 18 142/75 H 92 10/02/18 07:26 37.0 C 74 17 133/81 92 Laboratory Results Short CBC 10/02/18 Range/Units 07:21 Hgb 8.0 L (12.0-16.0) g/dL Hct 26.3 L (37-47) % BMP 10/02/18 07:21 Sodium 144 Potassium 3.3 L Chloride 111 H Carbon Dioxide 27 BUN 3 L Creatinine 0.41 L Glucose 92 Calcium 7.8 L (1) Acute pancreatitis Acute pancreatitis complication: unspecified Pancreatitis type: alcohol induced Qualified Code(s): K85.20 - Alcohol induced acute pancreatitis without necrosis or infection (2) Rhabdomyolysis Rhabdomyolysis type: non-traumatic Qualified Code(s): M62.82 - Rhabdomyolysis
[2018-10-02] MEDS: LOPERAMIDE HCL 2 MG CAP PO PRN ×3 (20:03→22:40)
[2018-10-02] MEDS: ONDANSETRON INJ 2 MG/ML 2 ML VIAL IV PRN (20:04)
[2018-10-02] MEDS: cefTRIAXone SODIUM 1,000 MG in DEXTROSE 5% 50 ML IV SCH (22:40)
[2018-10-03] MEDS: OXYCODONE HCL IR 5 MG TAB (IMMEDIATE RELEASE) PO PRN ×6 (00:30→20:51)
[2018-10-03] MEDS: ONDANSETRON INJ 2 MG/ML 2 ML VIAL IV PRN ×2 (04:46→18:11)
[2018-10-03] MEDS: LOPERAMIDE HCL 2 MG CAP PO PRN ×2 (04:46→09:20)
[2018-10-03 05:54] LABS: Hematocrit (blood only) 25.4 % (37-47); Hemoglobin 7.9 g/dL (12.0-16.0); Mean Corpuscular Hgb Conc 31.1 g/dL (32-36); Mean Corpuscular Volume 79.9 fL (80-100); Mean Platelet Volume 9.3 fL (7.4-10.4); Platelet Count 163 K/uL (130-400); RDW Coefficient of Variation 26.4 % (11.5-14.5); RDW Standard Deviation 77.1 fL (36.4-46.3); Red Blood Count 3.18 M/uL (4.2-5.4); White Blood Count 2.01 K/uL (4.8-10.8)
[2018-10-03 06:37] LABS: BUN Creatinine Ratio 8.5 (10-20); Calcium 7.9 mg/dl (8.5-10.1); Creatinine Clr Calc Pharmacy 144.7 ml/min; Est GFR (African American) 136.9; Est GFR (Non-African American) 118.1; Potassium 3.6 mmol/L (3.5-5.1)
[2018-10-03] MEDS: GABAPENTIN 300 MG CAP PO SCH ×3 (07:57→19:48)
[2018-10-03] MEDS: PANTOprazole 40 MG TAB PO SCH ×2 (07:57→19:49)
[2018-10-03] MEDS: CITALOPRAM 20 MG TAB PO SCH (08:07)
[2018-10-03] MEDS: PANCREAZE (LIPASE 10,500U) CAP PO SCH ×3 (08:07→16:46)
[2018-10-03] MEDS: CALCIUM 600MG + VIT D 400 IU TAB PO SCH ×2 (08:07→19:48)
[2018-10-03] MEDS: LACTOBACILLUS ACIDOPHILUS (FLORANEX) TAB PO SCH ×4 (08:07→19:47)
[2018-10-03] MEDS: MULTIVITAMIN TAB PO SCH (08:08)
[2018-10-03] MEDS: THIAMINE HCL 100 MG TAB PO SCH (08:08)
[2018-10-03] MEDS: FERROUS SULFATE 325 MG TAB PO SCH (08:08)
[2018-10-03] MEDS: FOLIC ACID 1 MG TAB PO SCH (08:08)
--- NOTE | 2018-10-03 08:23 | Anesthesiology Progress Note ---
Date of Service October 03, 2018 Anesthesia Post Procedure Vital Signs Vital Signs: Temp Pulse Pulse Resp BP BP Pulse Ox 10/03/18 08:00 37.1 C 74 20 146/83 H 94 10/02/18 22:00 36.5 C 83 20 109/69 99 10/02/18 16:21 36.8 C 61 18 140/87 95 10/02/18 15:13 65 18 155/83 H 93 10/02/18 14:58 67 18 131/80 93 10/02/18 14:43 36.3 C L 86 16 123/72 94 10/02/18 13:53 37.3 C 66 18 142/75 H 92 Pain Intensity Generalized: Pain Intensity: 9 Abdomen: Pain Intensity: 8 Notes Mental Status: alert / awake / arousable and participated in evaluation Patient Amnestic to Procedure: Yes Nausea / Vomiting: adequately controlled Pain: adequately controlled Airway Patency, RR, SpO2: stable & adequate BP & HR: stable & adequate Hydration State: stable & adequate Anesthetic Complications: no major complications apparent and Pt Satisfied with anesthetic care
[2018-10-03] MEDS: METOCLOPRAMIDE HCL INJ 5 MG/ML 2 ML VIAL IV PRN ×2 (10:01→19:59)
--- NOTE | 2018-10-03 11:47 | Gastroenterology Progress Note ---
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 Would typically repeat EGD for dilation in 1-2 months but pt has not kept any appts for our office or OP procedures stating "no ride." Daily PPI Lomotil BID here. We would be happy to see this pt in the OP setting to f/u ETOH cirrhosis, however, more important than GI f/u is complete ETOH cessation, [facility]. GI will sign off. Please notify us if new/worrisome GI issues. Supervising Physician Co-Signing Physician Notes I have performed a history and physical examination of this patient and reviewed the electronic medical record. Specifically, on history she is now tolerating her diet without abdominal pain or nausea. I have discussed the case with ELANA Vega. The above note reflects my findings, conclusions, and recommendations. Delano Gregory MD Subjective Ms. Saldana is a 53 yr old female with alcoholic hepatitis/alcoholic cirrhosis, continuing to drink alcohol. EGD yesterday: chronic gastrojejunal stricture, dilated to 18 mm yesterday. Improvement - no vomiting today. Able to eat the pureed diet w/o any vomiting. Requests to eat soft bread and cottage cheese - will add to diet order. 2-3 loose brown BMs/day. Pt on loperamide 2mg and takes BID at home. Ordered prn here and hasn't received. Colonoscopy in 2014 for diarrhea normal. Review of Systems Review of Systems: ROS: Gen: No weakness, but generalized pain from recent fall and c/o chronic pain since an accident yrs ago. No fevers, weight loss Eyes: No eye redness, or pain, no recent vision changes Resp: No SOB, no cough Cardio: No palpitations/irregular beats, no chest pain GI: + diarrhea, c/o lower abdominal discomfort today. No nausea/vomiting or regurgitation of foods on pureed diet. : Denies pain on urination Skin: + ecchymosis from falls. No jaundice, itching or new rashes Physical Exam Constitutional: WD/WN, vitals as above + ill appearing and + thin Eyes: PERRL, conjunctivae normal, anicteric sclerae ENMT: external ear and nose normal, oropharynx normal Neck: trachea midline, no thyromegaly Respiratory: normal respiratory effort, lungs clear to auscultation Cardiovascular: RRR, no murmur, no edema Gastrointestinal (Abdomen): Percussion/Palpation: + abdomen tender (c/o diffuse tenderness on palpation but no rebound or guarding) and abdomen soft Skin: no rashes, warm and dry normal turgor Neurologic: patellar DTR's 2+ bilat, sensation intact Psychiatric: A+Ox3, euthymic affect Lymphatic: no cervical or axillary lymphadenopathy Results & Data Vital Signs (Past 12 Hours) Vital Signs Temp Pulse Resp BP Pulse Ox 10/03/18 08:00 37.1 C 74 20 146/83 H 94
--- NOTE | 2018-10-03 17:26 | Hospitalist Progress Note ---
Date of Service October 03, 2018 Assessment & Plan (1) Pancytopenia: Neutropenia Likely due to bone marrow suppression from alcohol use S/P 1 unit PRBC Has chronic's pancytopenia--reviewed old records Had splenomegaly on prior imaging studies Normal folate, vitamin B12 levels Counselled to quit drinking alcohol Discussed with oncology Dr. Bryant Pancytopenia improved Monitor CBC Nausea & Vomiting, diarrhea: Secondary to Gastrojejunal anastomosis Severe stenosis. S/P dilatation Chronic abdominal pain Stool studies: Negative --Repeat CT ABD:Mixed findings.. Interval development of a small amount of upper abdominal and pelvic ascites. Distended fluid-filled esophagus with moderate distention of the gastric pouch post gastroplasty. Improved findings of pancreatitis.Nonobstructive bowel pattern. --S/P EGD:Normal upper third of esophagus and middle third of esophagus. Grade I and small (< 5 mm) esophageal varices. Z-line regular, 35 cm from the incisors. A small amount of food (residue) in the stomach. Gastric bypass with a normal- sized pouch and intact staple line. 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 Dilated. Normal examined jejunum. No specimens collected. --Appreciate GI Input --Tolerating diet --Needs repeat EGD in 1-2 months --Continue PPI --Continue Imodium Sacral Ulcer Continue wound Care Needs debridement Wound Care Physician consulted (2) Acute metabolic encephalopathy: Encephalopathy resolved Monitor Anxiety disorder: On Celexa Difficult to treat in setting of Alcohol abuse Patient admits to being noncompliant with Celexa Counseled about medication compliance (3) Alcohol withdrawal: Ativan PRN Also on gabapentin Continue thiamine, folic acid (4) Acute kidney injury: In setting of Rhabdomyolysis Resolved monitor renal function Avoid Nephrotoxic agents as able CK levels improved (5) Metabolic acidosis: resolved (6) Acute pancreatitis: Likely secondary to alcohol use. 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 Repeat Lipase levels: normal (7) Rhabdomyolysis: Prolonged immobilization at home prior to arrival CK levels improved Received IV fluids (8) UTI (urinary tract infection): Urine Cx:Pansensitive Klebsiella Repeat Urine Cx: Gram Negative bacilli---pending Continue Ceftriaxone for now (9) DVT prophylaxis: SCDs Code Status Full code Disposition PT/OT: Needs Home with Home Health Wound debridement::pending Subjective Patient is seen and examined at bedside Reports diarrhea overnight No nausea, vomiting today Chest discomfort resolved after EGD yesterday Abdominal pain improving Review of Systems Review of Systems: All systems reviewed & are unremarkable except as noted in HPI & below Physical Exam Physical Exam: Physical Exam: Vitals signs as noted above General Appearance:Moderately built, no apparent distress, fatigue Head: normocephalic, Atraumatic Eyes: normal inspection, EOMI Neck: supple, Trachea midline Respiratory/Chest: Decreased breath sounds, CTA Cardiovascular: S1, S2, No murmur Abdomen/GI:Soft, mild generalized tender, No guarding/rigidity, Bowel sounds present Extremities/Musculoskelatal:normal inspection, no edema Neurologic/Psych:AAOX3, grossly no focal neurological deficits Skin: normal color, warm Results & Data Vital Signs (Past 12 Hours) Vital Signs Temp Pulse Resp BP BP Pulse Ox 10/03/18 15:04 37.0 C 108 H 20 125/77 96 10/03/18 08:00 37.1 C 74 20 146/83 H 94 Laboratory Results Short CBC 10/03/18 Range/Units 05:30 WBC 2.01 L (4.8-10.8) K/uL Hgb 7.9 L (12.0-16.0) g/dL Hct 25.4 L (37-47) % Plt Count 163 (130-400) K/uL BMP 10/03/18 05:30 Sodium 141 Potassium 3.6 Chloride 110 H Carbon Dioxide 24 BUN 3 L Creatinine 0.40 L Glucose 87 Calcium 7.9 L (1) Acute pancreatitis Acute pancreatitis complication: unspecified Pancreatitis type: alcohol induced Qualified Code(s): K85.20 - Alcohol induced acute pancreatitis without necrosis or infection (2) Rhabdomyolysis Rhabdomyolysis type: non-traumatic Qualified Code(s): M62.82 - Rhabdomyolysis
[2018-10-03] MEDS: LOPERAMIDE HCL 2 MG CAP PO SCH (19:47)
[2018-10-03] MEDS: cefTRIAXone SODIUM 1,000 MG in DEXTROSE 5% 50 ML IV SCH (22:01)
[2018-10-04] MEDS ORDERED: LOPERAMIDE HCL 2 MG CAP PO STA (00:07)
[2018-10-04] MEDS: OXYCODONE HCL IR 5 MG TAB (IMMEDIATE RELEASE) PO PRN ×6 (00:48→21:44)
[2018-10-04] MEDS: METOCLOPRAMIDE HCL INJ 5 MG/ML 2 ML VIAL IV PRN ×2 (02:04→19:37)
[2018-10-04 06:14] LABS: Hematocrit (blood only) 25.7 % (37-47); Hemoglobin 7.9 g/dL (12.0-16.0); Mean Corpuscular Hgb Conc 30.7 g/dL (32-36); Mean Corpuscular Volume 80.1 fL (80-100); Mean Platelet Volume 9.5 fL (7.4-10.4); Platelet Count 166 K/uL (130-400); RDW Coefficient of Variation 26.5 % (11.5-14.5); Red Blood Count 3.21 M/uL (4.2-5.4); White Blood Count 1.84 K/uL (4.8-10.8)
[2018-10-04 06:44] LABS: BUN Creatinine Ratio 16.7 (10-20); Calcium 8.2 mg/dl (8.5-10.1); Creatinine Clr Calc Pharmacy 103.3 ml/min; Est GFR (African American) 122.5; Est GFR (Non-African American) 105.7; Potassium 3.8 mmol/L (3.5-5.1)
[2018-10-04] MEDS: LOPERAMIDE HCL 2 MG CAP PO SCH ×2 (08:26→19:38)
[2018-10-04] MEDS: GABAPENTIN 300 MG CAP PO SCH ×3 (08:27→19:38)
[2018-10-04] MEDS: LACTOBACILLUS ACIDOPHILUS (FLORANEX) TAB PO SCH ×4 (08:27→19:37)
[2018-10-04] MEDS: THIAMINE HCL 100 MG TAB PO SCH (08:27)
[2018-10-04] MEDS: CALCIUM 600MG + VIT D 400 IU TAB PO SCH ×2 (08:28→19:37)
[2018-10-04] MEDS: FOLIC ACID 1 MG TAB PO SCH (08:28)
[2018-10-04] MEDS: PANTOprazole 40 MG TAB PO SCH ×2 (08:28→19:38)
[2018-10-04] MEDS: CITALOPRAM 20 MG TAB PO SCH (08:28)
[2018-10-04] MEDS: PANCREAZE (LIPASE 10,500U) CAP PO SCH ×3 (08:28→16:55)
[2018-10-04] MEDS: MULTIVITAMIN TAB PO SCH (08:29)
[2018-10-04] MEDS: FERROUS SULFATE 325 MG TAB PO SCH (10:06)
[2018-10-04] MEDS: ONDANSETRON INJ 2 MG/ML 2 ML VIAL IV PRN (10:57)
--- NOTE | 2018-10-04 12:23 | Hospitalist Progress Note ---
Date of Service October 04, 2018 Assessment & Plan (1) Pancytopenia: Neutropenia Likely due to bone marrow suppression from alcohol use S/P 1 unit PRBC Has chronic's pancytopenia--reviewed old records Had splenomegaly on prior imaging studies Normal folate, vitamin B12 levels Counselled to quit drinking alcohol Pancytopenia improved Monitor CBC Nausea & Vomiting, diarrhea: Secondary to Gastrojejunal anastomosis Severe stenosis. S/P dilatation Chronic abdominal pain Stool studies: Negative --Repeat CT ABD:Mixed findings.. Interval development of a small amount of upper abdominal and pelvic ascites. Distended fluid-filled esophagus with moderate distention of the gastric pouch post gastroplasty. Improved findings of pancreatitis.Nonobstructive bowel pattern. --S/P EGD:Normal upper third of esophagus and middle third of esophagus. Grade I and small (< 5 mm) esophageal varices. Z-line regular, 35 cm from the incisors. A small amount of food (residue) in the stomach. Gastric bypass with a normal- sized pouch and intact staple line. 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 Dilated. Normal examined jejunum. No specimens collected. --Appreciate GI Input --Tolerating diet --Needs repeat EGD in 1-2 months --Continue PPI --Continue Imodium --Add Cholestryramine Sacral Ulcer Continue wound Care Needs debridement Wound Care Physician consulted (2) Acute metabolic encephalopathy: Encephalopathy resolved Monitor Anxiety disorder: On Celexa Difficult to treat in setting of Alcohol abuse Patient admits to being noncompliant with Celexa Counseled about medication compliance (3) Alcohol withdrawal: Ativan PRN Also on gabapentin Continue thiamine, folic acid (4) Acute kidney injury: In setting of Rhabdomyolysis Resolved monitor renal function Avoid Nephrotoxic agents as able CK levels improved (5) Metabolic acidosis: resolved (6) Acute pancreatitis: Likely secondary to alcohol use. 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 Repeat Lipase levels: normal (7) Rhabdomyolysis: Prolonged immobilization at home prior to arrival CK levels improved Received IV fluids (8) UTI (urinary tract infection): Urine Cx:MDR Klebsiella-ESBL Start Invanz, Stop Rocephin (9) DVT prophylaxis: SCDs Code Status Full code Disposition PT/OT: Needs Home with Home Health Wound debridement::pending ROS-No Headache, No Visual Changes, No Nausea, No Vomiting, No Fever, No Chills, No Neck Pain or Stiffness, No Chest Pain, No Palpitations, No SOB, No ASHRAF, No Cough, No Sputum, No Wheezing, No Abdominal Pain, +Diarrhea, No Hematemesis, No Hemoptysis, No Unexpected Weight Loss, No Flank pain, No Melena, No Jordan tochezia, No Frequency, No Urgency, No Burning, No Hematuria, No Rashes, No Diaphoresis. Appetite is Normal Physical Exam Gen-AAO x 3, NAD, Afebrile Head-NCAT, EOMI, PERRLA, Anicteric Sclera, No Posterior Pharyngeal Erythema Neck-Supple, No JVD, No Thyromegaly, No Masses, No LAD, No Bruits Lungs-Clear to Auscultation Bilaterally, No Rales, No Rhonchi, No Wheezing, No Crepitus Chest-No S4, +S1, +S2, No S3, No Murmurs, No Rubs, No Gallops, No Ectopy Abdomen-Soft, Bowel Sounds Present, Non Tender, Non Distended, No Hepatomegaly, No Splenomegaly, No Palpable Masses, No Rebound, No Rigidity, No Guarding Musculoskeletal-Full Range of Motion Bilaterally, No CVAT Extremities-No Cyanosis, No Clubbing, No Edema Nuero-Cranial Nerves II-XII grossly intact, Motor WNL, DTRs WNL, Strength WNL, Non Focal Psych-Normal Mood Results & Data Vital Signs (Past 12 Hours) Vital Signs Temp Pulse Resp BP Pulse Ox 10/04/18 07:18 36.8 C 64 16 118/75 93 labs checked (1) Rhabdomyolysis Rhabdomyolysis type: non-traumatic Qualified Code(s): M62.82 - Rhabdomyolysis (2) Acute pancreatitis Acute pancreatitis complication: unspecified Pancreatitis type: alcohol induced Qualified Code(s): K85.20 - Alcohol induced acute pancreatitis without necrosis or infection
[2018-10-04] MEDS: ERTAPENEM SODIUM 1,000 MG in SODIUM CHLORIDE 0.9% 50 ML IV SCH (13:50)
[2018-10-04] MEDS: COLLAGENASE OINT 30 GM TUBE EXT SCH (13:51)
--- NOTE | 2018-10-04 14:43 | Wound Consultation ---
Date of Consultation October 04, 2018 Assessment & Plan (1) Unstageable decubitus ulcer: This is a 53-year-old female with an unstageable deep sacral decubitus ulcer. Wound needed debridement. After obtaining permission topical Xylocaine was applied. Using a scalpel the wound was scored. Scant bleeding was controlled with pressure. Patient tolerated procedure well with no complications. This represents non-excisional debridement less than 20 cm. Wound will be dressed with Santyl. This is to be applied daily. We will see patient in the office for follow-up. Thank you for allowing me to participate in the care of this patient. Please not hesitate to call with any questions. History of Present Illness Reason for Consultation: Sacral pressure wound present on admission Attending Physician: Daniel Valenzuela DO History of Present Illness This is a 53-year-old female admitted with alcoholic pancreatitis, altered mental status, alcoholic cirrhosis, hypokalemia, metabolic acidosis, hypertension, acute kidney injury, rhabdomyolysis and pancytopenia is found to have a sacral wound on her buttocks. Patient was found on the floor of her apartment unless she was herself was 2 days prior. Patient is numerous admissions due to alcohol related complications. Allergies Allergy/AdvReac Type Severity Reaction Status Date / Time diphenhydramine Allergy Severe seizures/it Verified 10/02/18 13:43 mya/tremo rs bupropion Allergy Intermediate Palpitation Verified 10/02/18 13:43 s clarithromycin Allergy Intermediate HIVES Verified 10/02/18 13:43 aspirin Allergy Mild hives/ringing Verified 10/02/18 13:43 of ears oxaprozin Allergy Mild nausea/vomi Verified 10/02/18 13:43 ting salicylates Allergy Mild ringing in Verified 10/02/18 13:43 ears/hives tramadol Allergy Mild hives/upset Verified 10/02/18 13:43 stomach Home Medications Home Medications Medication Instructions Recorded Confirmed Type Creon 1 cap PO TIDM #90 cap 07/04/18 09/21/18 Rx magnesium oxide 800 mg PO HS #15 tab 07/04/18 09/21/18 Rx pantoprazole 40 mg PO BID #60 tab 07/04/18 09/21/18 Rx thiamine HCl (vitamin B1) [Vitamin 100 mg PO QAM #30 tab 07/04/18 09/21/18 Rx B-1] tramadol 50 mg PO Q6H PRN #14 tab 07/11/18 09/21/18 Rx Centrum Silver 1 tab PO QAM 08/08/18 09/21/18 History calcium carbonate-vitamin D3 1 tab PO BID 08/08/18 09/21/18 History [Calcium 500 With D] citalopram [Celexa] 10 mg PO QAM 08/08/18 09/21/18 History gabapentin 300 mg PO TID 08/08/18 09/21/18 History hydroxyzine HCl 25 - 50 mg PO BID PRN 08/08/18 09/21/18 History multivitamin with minerals 3 tab PO QAM 08/08/18 09/21/18 History [Hair,Skin and Nails] omeprazole 20 mg PO QAM 08/08/18 09/21/18 History folic acid 1 mg PO DAILY 09/21/18 09/21/18 History loperamide 2 mg PO Q6 PRN 09/21/18 09/21/18 History meloxicam 7.5 mg PO BID PRN 09/21/18 09/21/18 History ondansetron 4 mg TRANSLINGUAL Q8 09/21/18 09/21/18 History sucralfate [Carafate] 1 g PO ACHS 09/21/18 09/21/18 History Patient History Medical History Lumbago (Chronic) Multiple sclerosis (Chronic) Alcohol abuse Anxiety Cirrhosis Degenerative disc disease Esophageal varices with banding Factitious disorder Fibromyalgia Opiate addiction Pancreatitis Presence of intrathecal pump containing morphine 0.189mg/day and fentanyl 2.52mcg/day miminimal rate per pt "it doesnt work I haven't been able to afford the medication for 3 years now"?? 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 Beliefs That Will Affect Care: None marital status: Current Living Situation: Alone Other Information That Helps Us Care for You: No Feels Safe at Home: Yes Safety Concerns: Feels Safe At This Time Smoking Status: Former smoker Smoking End Date: not sure ; Second Hand Exposure: Yes ; Tobacco Cessation Education Requested by Patient: No Hx Alcohol Use: Yes Alcohol type: hard liquor Hx Substance Use: No Review of Systems Review of Systems: All systems reviewed & are unremarkable except as noted in HPI & below Physical Exam Constitutional: WD/WN, vitals as above Eyes: PERRL, conjunctivae normal, anicteric sclerae ENMT: Ears: no hearing impairment Respiratory: normal respiratory effort, lungs clear to auscultation Cardiovascular: RRR, no murmur, no edema Gastrointestinal (Abdomen): normal bowel sounds, soft, nontender, no hepatosplenomegaly Skin: Sacral wound measuring 2 x 2.2 cm. This is surface area 4.4 cm. Wound is covered with thick fibrous slough. Periwound is intact without inflammation. There is mild drainage no foul odors. Neurologic: awake; not confused Psychiatric: A+Ox3, euthymic affect Results & Data Vital Signs (Past 12 Hours) Vital Signs Temp Pulse Resp BP Pulse Ox 10/04/18 07:18 36.8 C 64 16 118/75 93 PG Care Time/CCT Total # of Minutes Spent Total Time Spent with Patient: Total time spent is greater than 50% in coordination of care (as documented) at patient's floor/unit and/or counseling patient: (1) Unstageable decubitus ulcer Pressure injury location: sacral region Qualified Code(s): L89.150 - Pressure ulcer of sacral region, unstageable
[2018-10-05] MEDS: OXYCODONE HCL IR 5 MG TAB (IMMEDIATE RELEASE) PO PRN ×5 (02:56→23:51)
[2018-10-05 07:18] LABS: Creatinine Clr Calc Pharmacy 103.3 ml/min; Est GFR (African American) 122.5; Est GFR (Non-African American) 105.7; Potassium 3.5 mmol/L (3.5-5.1)
[2018-10-05] MEDS: THIAMINE HCL 100 MG TAB PO SCH (08:32)
[2018-10-05] MEDS: COLLAGENASE OINT 30 GM TUBE EXT SCH (08:32)
[2018-10-05] MEDS: FERROUS SULFATE 325 MG TAB PO SCH (08:32)
[2018-10-05] MEDS: LACTOBACILLUS ACIDOPHILUS (FLORANEX) TAB PO SCH ×4 (08:32→20:50)
[2018-10-05] MEDS: FOLIC ACID 1 MG TAB PO SCH (08:32)
[2018-10-05] MEDS: GABAPENTIN 300 MG CAP PO SCH ×3 (08:33→20:50)
[2018-10-05] MEDS: LOPERAMIDE HCL 2 MG CAP PO SCH ×2 (08:33→20:50)
[2018-10-05] MEDS: MULTIVITAMIN TAB PO SCH (08:33)
[2018-10-05] MEDS: CALCIUM 600MG + VIT D 400 IU TAB PO SCH ×2 (08:33→20:50)
[2018-10-05] MEDS: PANCREAZE (LIPASE 10,500U) CAP PO SCH ×3 (08:33→17:37)
[2018-10-05] MEDS: PANTOprazole 40 MG TAB PO SCH ×2 (08:33→20:50)
[2018-10-05] MEDS: CITALOPRAM 20 MG TAB PO SCH (08:34)
[2018-10-05] MEDS: ERTAPENEM SODIUM 1,000 MG in SODIUM CHLORIDE 0.9% 50 ML IV SCH (12:37)
--- NOTE | 2018-10-05 13:24 | Hospitalist Progress Note ---
Date of Service October 05, 2018 Assessment & Plan (1) Pancytopenia: Neutropenia Likely due to bone marrow suppression from alcohol use S/P 1 unit PRBC Has chronic's pancytopenia--reviewed old records Had splenomegaly on prior imaging studies Normal folate, vitamin B12 levels Counselled to quit drinking alcohol Pancytopenia improved Monitor CBC Nausea & Vomiting, diarrhea: Secondary to Gastrojejunal anastomosis Severe stenosis. S/P dilatation Chronic abdominal pain Stool studies: Negative --Repeat CT ABD:Mixed findings.. Interval development of a small amount of upper abdominal and pelvic ascites. Distended fluid-filled esophagus with moderate distention of the gastric pouch post gastroplasty. Improved findings of pancreatitis.Nonobstructive bowel pattern. --S/P EGD:Normal upper third of esophagus and middle third of esophagus. Grade I and small (< 5 mm) esophageal varices. Z-line regular, 35 cm from the incisors. A small amount of food (residue) in the stomach. Gastric bypass with a normal- sized pouch and intact staple line. 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 Dilated. Normal examined jejunum. No specimens collected. --Appreciate GI Input --Tolerating diet --Needs repeat EGD in 1-2 months --Continue PPI --Continue Imodium --Add Cholestryramine Sacral Ulcer Continue wound Care Needs debridement Wound Care Physician consulted (2) Acute metabolic encephalopathy: Encephalopathy resolved Monitor Anxiety disorder: On Celexa Difficult to treat in setting of Alcohol abuse Patient admits to being noncompliant with Celexa Counseled about medication compliance (3) Alcohol withdrawal: Ativan PRN Also on gabapentin Continue thiamine, folic acid (4) Acute kidney injury: In setting of Rhabdomyolysis Resolved monitor renal function Avoid Nephrotoxic agents as able CK levels improved (5) Metabolic acidosis: resolved (6) Acute pancreatitis: Likely secondary to alcohol use. 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 Repeat Lipase levels: normal (7) Rhabdomyolysis: Prolonged immobilization at home prior to arrival CK levels improved Received IV fluids (8) UTI (urinary tract infection): Urine Cx:MDR Klebsiella-ESBL Continue Invanz (9) DVT prophylaxis: SCDs Code Status Full code Disposition PT/OT: Needs Home with Home Health Wound debridement::pending ROS-No Headache, No Visual Changes, No Nausea, No Vomiting, No Fever, No Chills, No Neck Pain or Stiffness, No Chest Pain, No Palpitations, No SOB, No ASHRAF, No Cough, No Sputum, No Wheezing, No Abdominal Pain, +Diarrhea, No Hematemesis, No Hemoptysis, No Unexpected Weight Loss, No Flank pain, No Melena, No Hematochezia, No Frequency, No Urgency, No Burning, No Hematuria, No Rashes, No Diaphoresis. Appetite is Normal Physical Exam Gen-AAO x 3, NAD, Afebrile Head-NCAT, EOMI, PERRLA, Anicteric Sclera, No Posterior Pharyngeal Erythema Neck-Supple, No JVD, No Thyromegaly, No Masses, No LAD, No Bruits Lungs-Clear to Auscultation Bilaterally, No Rales, No Rhonchi, No Wheezing, No Crepitus Chest-No S4, +S1, +S2, No S3, No Murmurs, No Rubs, No Gallops, No Ectopy Abdomen-Soft, Bowel Sounds Present, Non Tender, Non Distended, No Hepatomegaly, No Splenomegaly, No Palpable Masses, No Rebound, No Rigidity, No Guarding Musculoskeletal-Full Range of Motion Bilaterally, No CVAT Extremities-No Cyanosis, No Clubbing, No Edema Nuero-Cranial Nerves II-XII grossly intact, Motor WNL, DTRs WNL, Strength WNL, Non Focal Psych-Normal Mood Results & Data Vital Signs (Past 12 Hours) Vital Signs Temp Pulse Resp BP Pulse Ox 10/05/18 07:50 36.7 C 62 16 149/81 H 95 Current Diagnoses Other pancytopenia (09/21/18) Thrombocytopenia, unspecified (09/21/18) Acidosis (09/21/18) Hypokalemia (09/21/18) Alcohol dependence, uncomplicated (09/21/18) Alcohol dependence with withdrawal, unspecified (09/21/18) Metabolic encephalopathy (09/21/18) Hypotension, unspecified (09/21/18) Alcoholic cirrhosis of liver without ascites (09/21/18) Alcohol induced acute pancreatitis without necrosis or infection (09/21/18) Acute pancreatitis without necrosis or infection, unspecified (09/21/18) Other postprocedural complications and disorders of digestive system (09/21/18) Pressure ulcer of sacral region, unstageable (09/21/18) Rhabdomyolysis (09/21/18) Acute kidney failure, unspecified (09/21/18) Urinary tract infection, site not specified (09/21/18) Altered mental status, unspecified (09/21/18) Unspecified abnormal findings in urine (09/21/18) Encounter for administrative examinations, unspecified (09/21/18) Encounter for prophylactic measures, unspecified (09/21/18) Other specified health status (09/21/18) Allergies diphenhydramine Allergy (Severe, Verified 10/02/18 13:43) seizures/itching/tremors bupropion Allergy (Intermediate, Verified 10/02/18 13:43) Palpitations clarithromycin Allergy (Intermediate, Verified 10/02/18 13:43) HIVES aspirin Allergy (Mild, Verified 10/02/18 13:43) hives/ringing of ears oxaprozin Allergy (Mild, Verified 10/02/18 13:43) nausea/vomiting salicylates Allergy (Mild, Verified 10/02/18 13:43) ringing in ears/hives tramadol Allergy (Mild, Verified 10/02/18 13:43) hives/upset stomach Height/Weight/Isolation Height 5 ft 5 in Weight 58.6 kg Isolation Type Contact Precautions Chemistry 10/04/18 10/05/18 05:45 05:29 Sodium 141 141 Potassium 3.8 3.5 Chloride 108 H 108 H Carbon Dioxide 29 28 Anion Gap 5.0 5.0 BUN 9 D 15 D Creatinine 0.56 L 0.56 L Glucose 130 H 73 Microbiology 09/30/18 01:15 Urine,Clean Catch Urine Culture - Final Klebsiella pneumoniae ESBL (1) Acute pancreatitis Acute pancreatitis complication: unspecified Pancreatitis type: alcohol induced Qualified Code(s): K85.20 - Alcohol induced acute pancreatitis without necrosis or infection (2) Rhabdomyolysis Rhabdomyolysis type: non-traumatic Qualified Code(s): M62.82 - Rhabdomyolysis
[2018-10-05] MEDS: ONDANSETRON INJ 2 MG/ML 2 ML VIAL IV PRN (18:30)
[2018-10-05] MEDS ORDERED: LOPERAMIDE HCL 2 MG CAP PO STA (23:28)
[2018-10-06] MEDS: METOCLOPRAMIDE HCL INJ 5 MG/ML 2 ML VIAL IV PRN (01:55)
[2018-10-06] MEDS: OXYCODONE HCL IR 5 MG TAB (IMMEDIATE RELEASE) PO PRN ×3 (05:25→16:40)
[2018-10-06] MEDS: ONDANSETRON INJ 2 MG/ML 2 ML VIAL IV PRN (05:25)
[2018-10-06 08:33] LABS: Basophils # (auto) 0.05 K/uL (0-0.2); Basophils % (auto) 2.4 %; Eosinophils # (auto) 0.03 K/uL (0-0.5); Eosinophils % (auto) 1.4 %; Hematocrit (blood only) 27.2 % (37-47); Hemoglobin 8.2 g/dL (12.0-16.0); Immature Granulocytes # (auto) 0.01 K/uL (0.00-0.02); Immature Granulocytes % (auto) 0.5 %; Lymphocytes # (auto) 0.59 K/uL (1.2-3.4); Lymphocytes % (auto) 28.1 %; Mean Corpuscular Hgb Conc 30.1 g/dL (32-36); Mean Corpuscular Volume 80.2 fL (80-100); Mean Platelet Volume 9.6 fL (7.4-10.4); Monocytes # (auto) 0.26 K/uL (0.11-0.59); Monocytes % (auto) 12.4 %; Neutrophils # (auto) 1.16 K/uL (1.4-6.5); Neutrophils % (auto) 55.2 %; Platelet Count 182 K/uL (130-400); RDW Coefficient of Variation 26.2 % (11.5-14.5); RDW Standard Deviation 76.6 fL (36.4-46.3); Red Blood Count 3.39 M/uL (4.2-5.4)
[2018-10-06] MEDS: LACTOBACILLUS ACIDOPHILUS (FLORANEX) TAB PO SCH ×3 (08:45→16:41)
[2018-10-06] MEDS: PANCREAZE (LIPASE 10,500U) CAP PO SCH ×3 (08:46→16:50)
[2018-10-06] MEDS: CALCIUM 600MG + VIT D 400 IU TAB PO SCH (08:46)
[2018-10-06] MEDS: CITALOPRAM 20 MG TAB PO SCH (08:47)
[2018-10-06] MEDS: FERROUS SULFATE 325 MG TAB PO SCH (08:48)
[2018-10-06] MEDS: FOLIC ACID 1 MG TAB PO SCH (08:49)
[2018-10-06] MEDS: MULTIVITAMIN TAB PO SCH (08:50)
[2018-10-06] MEDS: LOPERAMIDE HCL 2 MG CAP PO SCH (08:50)
[2018-10-06] MEDS: COLLAGENASE OINT 30 GM TUBE EXT SCH (08:51)
[2018-10-06] MEDS: PANTOprazole 40 MG TAB PO SCH (08:51)
[2018-10-06] MEDS: GABAPENTIN 300 MG CAP PO SCH ×2 (08:51→13:18)
[2018-10-06] MEDS: THIAMINE HCL 100 MG TAB PO SCH (08:52)
[2018-10-06 09:04] LABS: Anisocytosis Present; Hypochromasia Present; Polychromasia 1+
--- NOTE | 2018-10-06 11:55 | Hospitalist Progress Note ---
Date of Service October 06, 2018 Assessment & Plan (1) Pancytopenia: Neutropenia Likely due to bone marrow suppression from alcohol use S/P 1 unit PRBC Has chronic's pancytopenia--reviewed old records Had splenomegaly on prior imaging studies Normal folate, vitamin B12 levels Counselled to quit drinking alcohol Pancytopenia improved Monitor CBC Nausea & Vomiting, diarrhea: Secondary to Gastrojejunal anastomosis Severe stenosis. S/P dilatation Chronic abdominal pain Stool studies: Negative --Repeat CT ABD:Mixed findings.. Interval development of a small amount of upper abdominal and pelvic ascites. Distended fluid-filled esophagus with moderate distention of the gastric pouch post gastroplasty. Improved findings of pancreatitis.Nonobstructive bowel pattern. --S/P EGD:Normal upper third of esophagus and middle third of esophagus. Grade I and small (< 5 mm) esophageal varices. Z-line regular, 35 cm from the incisors. A small amount of food (residue) in the stomach. Gastric bypass with a normal- sized pouch and intact staple line. 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 Dilated. Normal examined jejunum. No specimens collected. --Appreciate GI Input --Tolerating diet --Needs repeat EGD in 1-2 months --Continue PPI --Continue Imodium --Add Cholestryramine Sacral Ulcer Continue wound Care Needs debridement Wound Care (2) Acute metabolic encephalopathy: Encephalopathy resolved Monitor Anxiety disorder: On Celexa Difficult to treat in setting of Alcohol abuse Patient admits to being noncompliant with Celexa Counseled about medication compliance (3) Alcohol withdrawal: Ativan PRN Also on gabapentin Continue thiamine, folic acid (4) Acute kidney injury: In setting of Rhabdomyolysis Resolved monitor renal function Avoid Nephrotoxic agents as able CK levels improved (5) Metabolic acidosis: resolved (6) Acute pancreatitis: Likely secondary to alcohol use. 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 Repeat Lipase levels: normal (7) Rhabdomyolysis: Prolonged immobilization at home prior to arrival CK levels improved Received IV fluids (8) UTI (urinary tract infection): Urine Cx:MDR Klebsiella-ESBL Continue Invanz (9) DVT prophylaxis: SCDs Code Status Full code Disposition PT/OT: Needs Home with Home Health Wound debridement::pending ROS-No Headache, No Visual Changes, No Nausea, No Vomiting, No Fever, No Chills, No Neck Pain or Stiffness, No Chest Pain, No Palpitations, No SOB, No ASHRAF, No Cough, No Sputum, No Wheezing, No Abdominal Pain, +Diarrhea, No Hematemesis, No Hemoptysis, No Unexpected Weight Loss, No Flank pain, No Melena, No Hematochezia, No Frequency, No Urgency, No Burning, No Hematuria, No Rashes, No Diaphoresis. Appetite is Normal Physical Exam Gen-AAO x 3, NAD, Afebrile Head-NCAT, EOMI, PERRLA, Anicteric Sclera, No Posterior Pharyngeal Erythema Neck-Supple, No JVD, No Thyromegaly, No Masses, No LAD, No Bruits Lungs-Clear to Auscultation Bilaterally, No Rales, No Rhonchi, No Wheezing, No Crepitus Chest-No S4, +S1, +S2, No S3, No Murmurs, No Rubs, No Gallops, No Ectopy Abdomen-Soft, Bowel Sounds Present, Non Tender, Non Distended, No Hepatomegaly, No Splenomegaly, No Palpable Masses, No Rebound, No Rigidity, No Guarding Musculoskeletal-Full Range of Motion Bilaterally, No CVAT Extremities-No Cyanosis, No Clubbing, No Edema Nuero-Cranial Nerves II-XII grossly intact, Motor WNL, DTRs WNL, Strength WNL, Non Focal Psych-Normal Mood Results & Data Vital Signs (Past 12 Hours) Vital Signs Temp Pulse Resp BP Pulse Ox 10/06/18 08:19 36.6 C 65 17 99/63 L 96 Current Diagnoses Other pancytopenia (09/21/18) Thrombocytopenia, unspecified (09/21/18) Acidosis (09/21/18) Hypokalemia (09/21/18) Alcohol dependence, uncomplicated (09/21/18) Alcohol dependence with withdrawal, unspecified (09/21/18) Metabolic encephalopathy (09/21/18) Hypotension, unspecified (09/21/18) Alcoholic cirrhosis of liver without ascites (09/21/18) Alcohol induced acute pancreatitis without necrosis or infection (09/21/18) Acute pancreatitis without necrosis or infection, unspecified (09/21/18) Other postprocedural complications and disorders of digestive system (09/21/18) Pressure ulcer of sacral region, unstageable (09/21/18) Rhabdomyolysis (09/21/18) Acute kidney failure, unspecified (09/21/18) Urinary tract infection, site not specified (09/21/18) Altered mental status, unspecified (09/21/18) Unspecified abnormal findings in urine (09/21/18) Encounter for administrative examinations, unspecified (09/21/18) Encounter for prophylactic measures, unspecified (09/21/18) Other specified health status (09/21/18) Allergies diphenhydramine Allergy (Severe, Verified 10/02/18 13:43) seizures/itching/tremors bupropion Allergy (Intermediate, Verified 10/02/18 13:43) Palpitations clarithromycin Allergy (Intermediate, Verified 10/02/18 13:43) HIVES aspirin Allergy (Mild, Verified 10/02/18 13:43) hives/ringing of ears oxaprozin Allergy (Mild, Verified 10/02/18 13:43) nausea/vomiting salicylates Allergy (Mild, Verified 10/02/18 13:43) ringing in ears/hives tramadol Allergy (Mild, Verified 10/02/18 13:43) hives/upset stomach Height/Weight/Isolation Height 5 ft 5 in Weight 58.6 kg Isolation Type Contact Precautions Chemistry 10/05/18 05:29 Sodium 141 Potassium 3.5 Chloride 108 H Carbon Dioxide 28 Anion Gap 5.0 BUN 15 D Creatinine 0.56 L Glucose 73 Microbiology 09/30/18 01:15 Urine,Clean Catch Urine Culture - Final Klebsiella pneumoniae ESBL (1) Acute pancreatitis Acute pancreatitis complication: unspecified Pancreatitis type: alcohol induced Qualified Code(s): K85.20 - Alcohol induced acute pancreatitis without necrosis or infection (2) Rhabdomyolysis Rhabdomyolysis type: non-traumatic Qualified Code(s): M62.82 - Rhabdomyolysis
[2018-10-06] MEDS: ERTAPENEM SODIUM 1,000 MG in SODIUM CHLORIDE 0.9% 50 ML IV SCH (12:11)
[2018-10-06] MEDS ORDERED: LOPERAMIDE HCL 2 MG CAP PO PRN (12:58)
--- NOTE | 2018-10-06 17:00 | Discharge Summary ---
Date of Service October 06, 2018 Admission HPI Per Admitting Provider Patient s/p RYGB with stricture of the anastomosis, last dilated in 08/2018. She is hospitalized with alcoholic liver disease, but has noted a return of her obstructive symptoms. Admission Exam Per Admitting Provider Constitutional: WD/WN, vitals as above + acute distress, + ill appearing and + cachectic Eyes: PERRL, conjunctivae normal, anicteric sclerae ENMT: external ear and nose normal, oropharynx normal Mouth: + edentulous Neck: trachea midline, no thyromegaly Respiratory: normal respiratory effort, lungs clear to auscultation Cardiovascular: Rate/Rhythm: regular rate Heart Sounds: no gallop, no murmur and no cardiac rub Vessels: no JVD Extremities: normal capillary refill; no calf tenderness and no edema Gastrointestinal (Abdomen): Inspection/Auscultation: abdomen not distended Percussion/Palpation: + abdomen tender (epigastric), abdomen soft and + hepatomegaly Musculoskeletal: Head/Neck/Chest: neck supple Extremities: strength 5/5 throughout; no cyanosis and no clubbing IO access right shoulder and right tibia Skin: no rashes, warm and dry Trauma: + abrasion (left knee) and + contusion (multiple) Neurologic: PERRL, EOMI no facial palsy no dysarthria or aphasia patellar DTR's 2/2 bilat Psychiatric: Orientation: alert; + not oriented x 3 (moderate confusion) Affect: + anxious affect Genitourinary: Dial cath Lymphatic: no cervical lymphadenopathy Principal Diagnosis Decub Ulcer MDR Klebsiella UTI Pancytopenia Metabolic Encephalopathy Alcoholism Cirrhosis Rhabdo Discharge Exam Physical Exam Gen-AAO x 3, NAD, Afebrile Head-NCAT, EOMI, PERRLA, Anicteric Sclera, No Posterior Pharyngeal Erythema Neck-Supple, No JVD, No Thyromegaly, No Masses, No LAD, No Bruits Lungs-Clear to Auscultation Bilaterally, No Rales, No Rhonchi, No Wheezing, No Crepitus Chest-No S4, +S1, +S2, No S3, No Murmurs, No Rubs, No Gallops, No Ectopy Abdomen-Soft, Bowel Sounds Present, Non Tender, Non Distended, No Hepatomegaly, No Splenomegaly, No Palpable Masses, No Rebound, No Rigidity, No Guarding Musculoskeletal-Full Range of Motion Bilaterally, No CVAT Extremities-No Cyanosis, No Clubbing, No Edema Nuero-Cranial Nerves II-XII grossly intact, Motor WNL, DTRs WNL, Strength WNL, Non Focal Psych-Normal Mood Discharge Data Allergies Allergy/AdvReac Type Severity Reaction Status Date / Time diphenhydramine Allergy Severe seizures/it Verified 10/02/18 13:43 mya/tremo rs bupropion Allergy Intermediate Palpitation Verified 10/02/18 13:43 s clarithromycin Allergy Intermediate HIVES Verified 10/02/18 13:43 aspirin Allergy Mild hives/ringing Verified 10/02/18 13:43 of ears oxaprozin Allergy Mild nausea/vomi Verified 10/02/18 13:43 ting salicylates Allergy Mild ringing in Verified 10/02/18 13:43 ears/hives tramadol Allergy Mild hives/upset Verified 10/02/18 13:43 stomach Consultations 09/21/18 18:22 ED Decision to Admit Stat 09/21/18 21:24 Consult Case Management - Discharge Planning Routine Consult Engineering Manager Routine 09/21/18 21:29 Consult Case Management - Discharge Planning Routine 09/22/18 01:50 Consult Gastroenterology Routine 10/03/18 14:49 Consult Wound Care Provider Routine Procedures Performed Operation Date: 10/02/18 09:30 Actual Procedures p EGD Dilatation - Delano Gregory MD Ordered Studies 09/21/18 17:19 CT abd pelvis wo con Stat CT cervical spine wo con Stat CT chest wo con Stat CT head/brain wo con Stat 09/29/18 21:32 CT abd pelvis IV con only Urgent Current Diagnoses Other pancytopenia (09/21/18) Thrombocytopenia, unspecified (09/21/18) Acidosis (09/21/18) Hypokalemia (09/21/18) Alcohol dependence, uncomplicated (09/21/18) Alcohol dependence with withdrawal, unspecified (09/21/18) Metabolic encephalopathy (09/21/18) Hypotension, unspecified (09/21/18) Alcoholic cirrhosis of liver without ascites (09/21/18) Alcohol induced acute pancreatitis without necrosis or infection (09/21/18) Acute pancreatitis without necrosis or infection, unspecified (09/21/18) Other postprocedural complications and disorders of digestive system (09/21/18) Pressure ulcer of sacral region, unstageable (09/21/18) Rhabdomyolysis (09/21/18) Acute kidney failure, unspecified (09/21/18) Urinary tract infection, site not specified (09/21/18) Altered mental status, unspecified (09/21/18) Unspecified abnormal findings in urine (09/21/18) Encounter for administrative examinations, unspecified (09/21/18) Encounter for prophylactic measures, unspecified (09/21/18) Other specified health status (09/21/18) Allergies diphenhydramine Allergy (Severe, Verified 10/02/18 13:43) seizures/itching/tremors bupropion Allergy (Intermediate, Verified 10/02/18 13:43) Palpitations clarithromycin Allergy (Intermediate, Verified 10/02/18 13:43) HIVES aspirin Allergy (Mild, Verified 10/02/18 13:43) hives/ringing of ears oxaprozin Allergy (Mild, Verified 10/02/18 13:43) nausea/vomiting salicylates Allergy (Mild, Verified 10/02/18 13:43) ringing in ears/hives tramadol Allergy (Mild, Verified 10/02/18 13:43) hives/upset stomach Height/Weight/Isolation Height 5 ft 5 in Weight 58.6 kg Isolation Type Contact Precautions Chemistry 10/05/18 05:29 Sodium 141 Potassium 3.5 Chloride 108 H Carbon Dioxide 28 Anion Gap 5.0 BUN 15 D Creatinine 0.56 L Glucose 73 Hospital Course (1) Pancytopenia: Neutropenia Likely due to bone marrow suppression from alcohol use S/P 1 unit PRBC Has chronic's pancytopenia--reviewed old records Had splenomegaly on prior imaging studies Normal folate, vitamin B12 levels Counselled to quit drinking alcohol Pancytopenia improved Monitor CBC Nausea & Vomiting, diarrhea: Secondary to Gastrojejunal anastomosis Severe stenosis. S/P dilatation Chronic abdominal pain Stool studies: Negative --Repeat CT ABD:Mixed findings.. Interval development of a small amount of upper abdominal and pelvic ascites. Distended fluid-filled esophagus with moderate distention of the gastric pouch post gastroplasty. Improved findings of pancreatitis.Nonobstructive bowel pattern. --S/P EGD:Normal upper third of esophagus and middle third of esophagus. Grade I and small (< 5 mm) esophageal varices. Z-line regular, 35 cm from the incisors. A small amount of food (residue) in the stomach. Gastric bypass with a normal- sized pouch and intact staple line. 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 Dilated. Normal examined jejunum. No specimens collected. --Tolerating diet --Needs repeat EGD in 1-2 months --Continue PPI --Continue Imodium --Add Cholestryramine Sacral Ulcer Continue wound Care Needs debridement Wound Care (2) Acute metabolic encephalopathy: Encephalopathy resolved Monitor Anxiety disorder: On Celexa Difficult to treat in setting of Alcohol abuse Patient admits to being noncompliant with Celexa Counseled about medication compliance (3) Alcohol withdrawal: Also on gabapentin Continue thiamine, folic acid (4) Acute kidney injury: In setting of Rhabdomyolysis Resolved Avoid Nephrotoxic agents as able CK levels improved (5) Metabolic acidosis: resolved (6) Acute pancreatitis: Likely secondary to alcohol use. Continue supportive care measures Appreciate GI Input Finance Effectiveness Manager to quit alcohol use Repeat Lipase levels: normal (7) Rhabdomyolysis: Prolonged immobilization at home prior to arrival CK levels improved Received IV fluids (8) UTI (urinary tract infection): Urine Cx:MDR Klebsiella-ESBL Continue Invanz (9) DVT prophylaxis: SCDs Code Status Full code Disposition PT/OT: SNF today Wound eval and treat ROS-No Headache, No Visual Changes, No Nausea, No Vomiting, No Fever, No Chills, No Neck Pain or Stiffness, No Chest Pain, No Palpitations, No SOB, No ASHRAF, No Cough, No Sputum, No Wheezing, No Abdominal Pain, +Diarrhea, No Hematemesis, No Hemoptysis, No Unexpected Weight Loss, No Flank pain, No Melena, No Hematochezia, No Frequency, No Urgency, No Burning, No Hematuria, No Rashes, No Diaphoresis. Appetite is Normal Physical Exam Gen-AAO x 3, NAD, Afebrile Head-NCAT, EOMI, PERRLA, Anicteric Sclera, No Posterior Pharyngeal Erythema Neck-Supple, No JVD, No Thyromegaly, No Masses, No LAD, No Bruits Lungs-Clear to Auscultation Bilaterally, No Rales, No Rhonchi, No Wheezing, No Crepitus Chest-No S4, +S1, +S2, No S3, No Murmurs, No Rubs, No Gallops, No Ectopy Abdomen-Soft, Bowel Sounds Present, Non Tender, Non Distended, No Hepatomegaly, No Splenomegaly, No Palpable Masses, No Rebound, No Rigidity, No Guarding Musculoskeletal-Full Range of Motion Bilaterally, No CVAT Extremities-No Cyanosis, No Clubbing, No Edema Nuero-Cranial Nerves II-XII grossly intact, Motor WNL, DTRs WNL, Strength WNL, Non Focal Psych-Normal Mood Total Time Total Time Spent Total Time Spent (In Minutes): 50 mins Total Time Includes: Examination of the Patient, Discharge Planning, Medication Reconciliation and Communication With Other Providers Discharge Plan Discharge Items Patient Disposition: Transfer Long-Term Fac Reason For Visit: HYPOTENSION,METABOLIC ACIDOSIS Discharge Diagnosis: Decub Ulcer MDR Klebsiella UTI Pancytopenia Metabolic Encephalopathy Alcoholism Cirrhosis Rhabdo Condition: Fair Discharge Goals: Improve disease control Activity: As commented below Activity Comment: Ad Teresa Lifting: None Bathing Comment: Shower OK, Has Decub Sexual Activity: Wait until after follow-up appointment Exercise/Sports: None Weightbearing: Full weightbearing Non-emergency contact: Primary Care Provider Call non-emergency contact if: you have any medication questions Follow-up/Referrals: Pita Borges MD [Primary Care Provider] - Diet: Heart Healthy and Low Sodium (2gm) Addtl Provider Instructions: Wound Care Eval and Treat for Sacral Ulcer Prescriptions: New ertapenem [Invanz] 1 gram recon soln 1 gm IV DAILY 10 Days Qty: 10 RF: 0 Continued citalopram [Celexa] 10 mg Tablet 10 mg PO QAM RF: 0 gabapentin 300 mg Capsule 300 mg PO TID RF: 0 hydroxyzine HCl 25 mg Tablet 25 - 50 mg PO BID PRN (Reason: Anxiety) RF: 0 multivitamin with minerals [Hair,Skin and Nails] Tablet 3 tab PO QAM RF: 0 Centrum Silver 0.4-300-250 mg-mcg-mcg Tablet 1 tab PO QAM RF: 0 calcium carbonate-vitamin D3 [Calcium 500 With D] 500 mg(1,250mg) -400 unit Tablet 1 tab PO BID RF: 0 loperamide 2 mg capsule 2 mg PO Q6 PRN (Reason: Diarrhea) RF: 0 sucralfate [Carafate] 1 gram tablet 1 g PO ACHS RF: 0 folic acid 1 mg tablet 1 mg PO DAILY RF: 0 ondansetron 4 mg tablet,disintegrating 4 mg translingual Q8 RF: 0 meloxicam 7.5 mg Tablet 7.5 mg PO BID PRN (Reason: Pain) RF: 0 thiamine HCl (vitamin B1) [Vitamin B-1] 100 mg Tablet 100 mg PO QAM Qty: 30 RF: 0 magnesium oxide 400 mg (241.3 mg magnesium) Tablet 800 mg PO HS Qty: 15 RF: 0 pantoprazole 40 mg Tablet,Delayed Release (Dr/Ec) 40 mg PO BID Qty: 60 RF: 0 Creon 36,000-114,000- 180,000 unit Capsule,Delayed Release(Dr/Ec) 1 cap PO TIDM Qty: 90 RF: 0 Discontinued omeprazole 20 mg Tablet,Delayed Release (Dr/Ec) 20 mg PO QAM RF: 0 tramadol 50 mg tablet 50 mg PO Q6H PRN (Reason: pain) Qty: 14 RF: 0 Stand-Alone Forms: [facility] Discharge Orders: Discharge Order (Routine); Ordered 10/06/18 Ordered By: Daniel Valenzuela Skilled Items Patient informed of condition?: Yes DNR: No Discharge Level of Care: Skilled Communicable Disease: Yes Discharge Prognosis: Improving Admission Data Admit Date/Time: 09/21/18 19:02 Attending Provider: Daniel Valenzuela Admit Provider: Issac Cadena Primary Care Provider: Pita Borges Other Providers: Elana Carr ; Issac Cadena ; Rhys Navarro ; Aure Choi ; Thee Garg Service: Medical Other Interventions: Discharge Summary Assessment (RN) Last Done: 10/02/18 15:21
== END 2018-10-06 19:04 | DRG 896 ==
LOC: ED 16:06 → 1E 19:02 → SUATTDRO 19:02 → 1E 20:33 → 2S 09-23 11:55 → 4W 09-27 16:35

== ENCOUNTER 2018-10-24 10:27 | Inpatient (IN) ==
[2018-10-24] MEDS ORDERED: MULTI-VITAMIN INFUSION 10 ML, THIAMINE HCL 100 MG, FOLIC ACID 1 MG in SODIUM CHLORIDE 0... IV ONE ×2 (11:46→20:00)
[2018-10-24] MEDS ORDERED: SODIUM CHLORIDE 0.9% 1000ML 1,000 ML IV ONE (11:46)
--- NOTE | 2018-10-24 11:51 | XRay Report ---
XR chest 1V portable CLINICAL HISTORY: 53 years-old Female presenting with overdose. TECHNIQUE: Portable upright AP view of the chest was obtained. COMPARISON: 09/23/2018. FINDINGS: Low lung volumes with elevation of the bilateral hemidiaphragms as on prior exam. This obscures the c ardiac silhouette. Prominence of pulmonary vasculature with bronchial wall cuffing and added density with irregular bandlike opacities in a perihilar distribution. These findings are new from prior. No large effusion or pneumothorax. Osteopenia may be present. Surgical clips project over the abdomen. G aseous distended bowel suggested beneath the right hemidiaphragm as on prior exam. IMPRESSION: 1. Volume overload with congestive change and early central predominant pulmonary edema suspected. 2. Low lung volumes as on prior exam. Electronically signed by: Luis A Cali M.D. 10/24/2018 11:50 AM
[2018-10-24 12:47] LABS: Mean Corpuscular Hgb Conc 31.2 g/dL (32-36)
[2018-10-24 12:49] LABS: Base Excess VBG 2.9 mEq/L; Oxygen Saturation VBG 77.2 %; pH VBG 7.41 (7.36-7.41)
[2018-10-24 12:54] LABS: Hematocrit (blood only) 28.2 % (37-47); Hemoglobin 8.8 g/dL (12.0-16.0); Mean Corpuscular Hemoglobin 23.8 pg (25-34); Mean Corpuscular Volume 76.2 fL (80-100); RDW Coefficient of Variation 22.6 % (11.5-14.5); RDW Standard Deviation 63.9 fL (36.4-46.3); White Blood Count 2.05 K/uL (4.8-10.8)
[2018-10-24 12:55] LABS: INR 1.2 (0.9-1.1); Prothrombin Time 11.7 Seconds (9.0-12.0)
[2018-10-24 13:04] LABS: Appearance Urine Clear (Clear); Bacteria Urine Automated 2+ (Negative); Bilirubin Urine Negative (Negative); Blood Urine Negative (Negative); Cast Urine Automated 0 /lpf (0-5); Color Urine Yellow; Epithelial Cell Urine Auto 0-5 /lpf (0-5); Glucose Urine UA Negative (Negative); Ketones Urine Negative (Negative); Leukocyte Esterase Urine 3+ (Negative); Nitrite Urine Positive (Negative); Protein Urine Negative (Negative); RBC Urine Automated 0-4 /hpf (0-4); Specific Gravity Urine 1.007 (1.000-1.030); Urobilinogen Urine Negative (Negative); WBC Urine Automated >30 /hpf (0-5); pH Urine 7.5 (4.5-7.5)
[2018-10-24 13:10] LABS: Alanine Aminotransferase 30 U/L (12-78); Albumin Level 3.3 gm/dl (3.4-5.0); Aspartate Aminotransferase 50 U/L (15-37); BUN Creatinine Ratio 9.4 (10-20); Bilirubin Direct 0.3 mg/dl (0-0.2); Blood Urea Nitrogen 5 mg/dl (7-18); Calcium 8.5 mg/dl (8.5-10.1); Carbon Dioxide 28 mmol/L (21-32); Chloride 107 mmol/L (98-107); Est GFR (African American) 126.3; Glucose 81 mg/dl (70-99); Magnesium 2.1 mg/dl (1.8-2.4); Potassium 4.1 mmol/L (3.5-5.1); Sodium 142 mmol/L (136-145)
[2018-10-24 13:23] LABS: Albumin Globulin Ratio 0.9 (0.9-2); Alkaline Phosphatase 129 U/L (45-117); Bilirubin,Total 0.8 mg/dl (0.2-1); Creatine Kinase 68 U/L (26-192); Globulin 3.6 gm/dl (2.5-4.0); NT Pro B Type Natriuretic Pept 84 pg/ml (0-900); Phosphorus 3.9 mg/dl (2.5-4.9); Thyroid Stimulating Hormone 0.896 uIu/ml (0.300-4.500); Total Protein 6.9 gm/dl (6.4-8.2)
[2018-10-24 13:29] LABS: Amphetamines+Metham, Urine Neg (Neg); Barbiturates, Urine Neg (Neg); Benzodiazepine, Urine Neg (Neg); Cocaine, Urine Neg (Neg); MDMA (Ecstacy), Urine Neg (Neg); Methadone, Urine Neg (Neg); Opiate, Urine Neg (Neg); Phencyclidine, Urine Neg (Neg)
[2018-10-24 13:31] LABS: Anisocytosis Present; Basophils # (auto) 0.01 K/uL (0-0.2); Basophils % (auto) 0.5 %; Eosinophils # (auto) 0.09 K/uL (0-0.5); Eosinophils % (auto) 4.4 %; Hypochromasia Present; Lymphocytes # (auto) 0.65 K/uL (1.2-3.4); Lymphocytes % (auto) 31.7 %; Monocytes % (auto) 9.8 %; Neutrophils % (auto) 53.6 %; Platelet Count 111 K/uL (130-400); Platelet Estimate Decreased (Normal)
[2018-10-24] MEDS ORDERED: cefTRIAXone SODIUM 2,000 MG/70 ML BAG IV STA (14:09)
[2018-10-24] MEDS ORDERED: ERTAPENEM SODIUM 10 ML IV STA (16:52)
[2018-10-24] MEDS ORDERED: LORazepam 1 MG TAB SL STA (16:56)
--- NOTE | 2018-10-24 18:13 | History & Physical Report ---
Date of Service October 24, 2018 Assessment & Plan (1) Altered mental status: Pt is 53 y/o F with PMH anxiety, alcoholic cirrhosis, portal hypertension, esophageal varices, thrombocytopenia, h/o seizure h/o pancreatitis presented to ER for altered mental status. Limited history obtained from patient secondary to altered mental status. ER staff report patient brought to ER and was minimally responsive initially. During ER course patient became awake but still confused. Altered Mental status. DDX: metabolic Encephalopathy, UTI, acute alcohol intoxication, other substance use, hepatic encephalopathy Lactate: 2.3. WBC: 2 (was 2.1 and 09/2018), H/H: 8.8/28 (hemoglobin 8.2 on 10/06/2018) UA: + nitrite, 3+ leuk esterase, >30 WBC, 2+ bacteria. Urine drug screen + marijuana. ETOH level: 116 Lactate possibly elevated secondary to alcohol, sepsis however pt afebrile, no tachycardia. Initial BP in ER 84/57 up to 127/82 after IVF -In ER pt given 1 mL NSS, banana bag, Ativan 1 mg sublingual, ertapenem -Repeat lactate WNL at 1.3 -Pending blood cultures, pending urine culture -Monitor BP -Dose of ertapenem tomorrow pending urine culture -Alcohol withdrawal protocol -If you develop worsening altered mental status consider CT head (2) UTI (urinary tract infection): History recent UTI in 09/2018 with urine culture positive for Klebsiella, ESBL Possible UTI UA: + nitrite, 3+ leuk esterase, >30 WBC, 2+ bacteria. Unsure if patient having symptoms as unable to obtain secondary to her current altered mental status -Urine culture pending -In ER patient given ertapenem -Plan on additional dose of ertapenem tomorrow (3) Alcoholic cirrhosis: INR: 1.2, total bili: 0.8, AST: 50, ALT: 30, alk phos: 129. LFTs have improved since previous admission 09/2018 No current bleeding (4) Alcohol use: Patient admits to drinking vodka however does not quantify how much and how often. She reports last drink 2 days ago however alcohol level is 116 in ER -In ER patient given banana bag -Alcohol withdrawal protocol with gabapentin. Would plan to resume patient's home gabapentin dosage on 10/26/2018 as she tapers down from withdrawal protocol -When patient more oriented further discussion about alcohol cessation (5) Chronic anemia: (6) Thrombocytopenia: Chronic anemia, chronic thrombocytopenia likely secondary to alcohol abuse, cirrhosis H/H: 8.8/28 (hemoglobin 8.2 on 10/06/2018) PLT: 111 -Monitor CBC DVT Prophylaxis -SCDs Follows with Dr Cameron Wolfe for routine care Pt was seen and care coordinated with Dr Simon. See addendum History of Present Illness Chief Complaint: Altered mental status Primary Care Provider: Pita Wolfe MD Pt is 53 y/o F with PMH anxiety, alcoholic cirrhosis, portal hypertension, esophageal varices, thrombocytopenia, h/o seizure h/o pancreatitis presented to ER for altered mental status. Limited history obtained from patient secondary to altered mental status. ER staff report patient brought to ER and was minimally responsive initially. During ER course patient became awake but still confused. Patient is pulling off court recording monitor, has pulled out IVs and has been noted to be wandering around the ER. Patient states she is unsure why she is at the ER. She wonders if she may have had a seizure. Unsure if pt had any bowel/bladder incontinence or known seizure activity. Pt unsure when last seizur e was and denies hx alcohol withdrawal seizure. Currently patient reports feels restless and is denying any other current complaints. Of note a telephone call was made to patient's PCP office this morning reporting that patient has been drinking alcohol again and slid off the bed this morning and was difficult to arouse. ER reports that pt's son was with pt in ER and states pt is not acting like herself. ER report pt's son had reported pt's oxycodone bottle had less pills in than what she was prescribed. Unsure if pt took more than prescribed. Unknown if pt took any other medications or drugs. Pt admits to marijuana use and states she gets it from a dispensary. In ER urine tox +marijuana, negative for other agents. Pt states drinks vodka "off and on" and states her last drink was 2 days ago, however her ETOH level in ER is 116. Pt reports hx pain pump placed to her abdomen and in past had followed with [facility]. She states it has been "a long time" since this was used. Pt denies current CROWELL, dizziness, CP, SOB, N/V/D, abdominal pain. Reports chronic left leg pain from prior injury and surgery. Pt c/o itching and feeling restless. Patient with history of hospitalization 09/21/2018-10/06/2018 for altered mental status, metabolic acidosis, TYRONE, pancreatitis, rhabdomyolysis, UTI with culture positive Klebsiella and ESBL. Patient was discharged to rehab. Allergies Allergy/AdvReac Type Severity Reaction Status Date / Time diphenhydramine Allergy Severe seizures/it Verified 10/24/18 11:50 mya/tremo rs bupropion Allergy Intermediate Palpitation Verified 10/24/18 11:50 s clarithromycin Allergy Intermediate HIVES Verified 10/24/18 11:50 aspirin Allergy Mild hives/ringing Verified 10/24/18 11:50 of ears oxaprozin Allergy Mild nausea/vomi Verified 10/24/18 11:50 ting salicylates Allergy Mild ringing in Verified 10/24/18 11:50 ears/hives tramadol Allergy Mild hives/upset Verified 10/24/18 11:50 stomach Home Medications Home Medications Medication Instructions Recorded Confirmed Type Creon 1 cap PO TIDM #90 cap 07/04/18 10/24/18 Rx magnesium oxide 800 mg PO HS #15 tab 07/04/18 10/24/18 Rx pantoprazole 40 mg PO BID #60 tab 07/04/18 10/24/18 Rx thiamine HCl (vitamin B1) [Vitamin 100 mg PO QAM #30 tab 07/04/18 10/24/18 Rx B-1] Centrum Silver 1 tab PO QAM 08/08/18 10/24/18 History calcium carbonate-vitamin D3 1 tab PO BID 08/08/18 10/24/18 History [Calcium 500 With D] citalopram [Celexa] 10 mg PO QAM 08/08/18 10/24/18 History gabapentin 300 mg PO TID 08/08/18 10/24/18 History hydroxyzine HCl 25 - 50 mg PO BID PRN 08/08/18 10/24/18 History multivitamin with minerals 3 tab PO QAM 08/08/18 10/24/18 History [Hair,Skin and Nails] folic acid 1 mg PO DAILY 09/21/18 10/24/18 History sucralfate [Carafate] 1 g PO ACHS 09/21/18 10/24/18 History oxycodone 5 mg PO Q4H PRN 10/24/18 10/24/18 History Past Med/Surg History Medical History 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 Beliefs That Will Affect Care: None marital status: Current Living Situation: Alone Other Information That Helps Us Care for You: No (unable to obtain) Feels Safe at Home: Yes Smoking Status: Unknown if ever smoked Hx Alcohol Use: Yes Alcohol type: hard liquor Hx Substance Use: No Review of Systems Review of Systems: All systems reviewed & are unremarkable except as noted in HPI & below and Unobtainable due to cognitive status Physical Exam Physical Exam: General: Chronic ill appearing, very restless, pulling at court recording monitor and IV, moderately developed moderately nourished Head: normocephalic, atraumatic Eyes: PERRL, EOM's appear intact with limited pt cooperation, conjunctiva non- injected, anicteric ENT: normal inspection external ears, nose, mucous membranes moist Neck: supple, trachea midline Lungs: clear, no respiratory distress, no wheezing/rhonchi/rales CV: RRR, no murmur, no pretibial edema Abd: normal BS, soft, +surgical scars, +palpable rectangular mass to right abdomen, non-tender to palpation Ext: no cyanosis, no calf tenderness, left knee with surgical scar with palpable mass anterior knee that is nontender to palpation, left pedal push weaker than right Neuro: Alert, oriented to person and place, restless, no focal deficits noted Skin: warm, dry, ecchymosis to dorsal hand, left anterior knee with Results & Data Vital Signs (Past 12 Hours) Vital Signs Temp Pulse Resp BP Pulse Ox 10/24/18 15:39 94 H 19 10/24/18 13:31 74 20 127/82 10/24/18 13:30 76 14 10/24/18 13:00 66 17 124/80 10/24/18 12:30 64 16 121/77 10/24/18 12:00 75 16 109/65 10/24/18 11:30 78 19 95/64 L 97 10/24/18 11:00 81 22 90/59 L 97 10/24/18 10:37 82 18 82/59 L 91 10/24/18 10:36 89 27 H 68 L 10/24/18 10:34 36.7 C 88 23 84/57 L 85 L Laboratory Results Short CBC 10/24/18 Range/Units 12:10 WBC 2.05 L (4.8-10.8) K/uL Hgb 8.8 L (12.0-16.0) g/dL Hct 28.2 L (37-47) % Plt Count 111 L (130-400) K/uL BMP 10/24/18 12:10 Sodium 142 Potassium 4.1 Chloride 107 Carbon Dioxide 28 BUN 5 L Creatinine 0.51 L Glucose 81 Calcium 8.5 Cardiac Enzymes 10/24/18 Range/Units 12:10 Total Creatine Kinase 68 (26-192) U/L Liver Function 10/24/18 Range/Units 12:10 Total Bilirubin 0.8 (0.2-1) mg/dl Direct Bilirubin 0.3 H (0-0.2) mg/dl AST 50 H (15-37) U/L ALT 30 (12-78) U/L Alkaline Phosphatase 129 H (45-117) U/L Albumin 3.3 L (3.4-5.0) gm/dl Urine 10/24/18 Range/Units 12:55 Urine Color Yellow Urine Appearance Clear (Clear) Urine pH 7.5 (4.5-7.5) Ur Specific [place] 1.007 (1.000-1.030) Urine Protein Negative (Negative) Urine Glucose (UA) Negative (Negative) Diagnostic Findings CXR: IMPRESSION: 1. Volume overload with congestive change and early central predominant pulmonary edema suspected. 2. Low lung volumes as on prior exam. ECG Rate (beats per minute): 84 Rhythm: sinus rhythm Findings: + nonspecific-ST abn Supervising Physician Co-Signing Physician Notes 53 y/o F with PMH anxiety, alcoholic cirrhosis, portal hypertension, esophageal varices, thrombocytopenia, h/o seizure h/o pancreatitis presented to ER for altered mental status. Patient was seen and examined with Eli Suarez PA-C. History is very limited. Physical exam as above. Altered mental status is likely due to alcohol withdrawal. Other differential is possible sepsis due to leukopenia (though this is chronic), hypotension (resolved with resuscitation), urinalysis suggestive of UTI. Had ESBL Klebsiella UTI 3 weeks ago. Will continue ertapenem for now until blood culture and urine culture results. Lactic acid is 2.3 -For Alcohol withdrawal, CIWA is 14. Will manage with iv thiamine, folate, lorazepam, gabapentin per protocol. Please ensure that gabapentin tapering dose protocol is changed to home dose on completion -Aspiration precautions for AMS. Will start patient on liquid diet and advance as tolerated once she passes bedside swallow eval by RN. -Will need counselling for alcohol abuse and resources prior to discharge -LFTs are mildly elevated, Normal bilirubin. Monitor LFT -Patient has a subcutaneous device on right lower quadrant of abdomen which she described as her pain pump device. Exam does not suggestive any related infection. Will try to get more information regarding the device and the company that manages it for her. -Continue home medication, celexa -Telemetry monitoring
--- NOTE | 2018-10-24 18:54 | Emergency Department Note ---
Entered by Lucila Pereira acting as a scribe for Glen Alves MD History of Present Illness General Chief complaint: Altered Mental Status Stated complaint: ams Time Seen by Provider: 10/24/18 11:43 Source: patient Mode of arrival: EMS History of Present Illness Provider complaint: AMS Onset (ago): hour(s) less than 1 Location: head Pain Consistency: + constant The patient is a 53 y/o female with a history of anemia, alcoholism, and HTN, who presents to the emergency department via EMS for evaluation of constant alt ered mental status that began prior to arrival. The patient takes oxycodone and is an alcoholic who was found by the son to be altered. HPI and ROS are limited due to the patients altered mental status. Home Medications Home Medications Medication Instructions Recorded Confirmed Type Creon 1 cap PO TIDM #90 cap 07/04/18 10/24/18 Rx magnesium oxide 800 mg PO HS #15 tab 07/04/18 10/24/18 Rx pantoprazole 40 mg PO BID #60 tab 07/04/18 10/24/18 Rx thiamine HCl (vitamin B1) [Vitamin 100 mg PO QAM #30 tab 07/04/18 10/24/18 Rx B-1] Centrum Silver 1 tab PO QAM 08/08/18 10/24/18 History calcium carbonate-vitamin D3 1 tab PO BID 08/08/18 10/24/18 History [Calcium 500 With D] citalopram [Celexa] 10 mg PO QAM 08/08/18 10/24/18 History gabapentin 300 mg PO TID 08/08/18 10/24/18 History hydroxyzine HCl 25 - 50 mg PO BID PRN 08/08/18 10/24/18 History multivitamin with minerals 3 tab PO QAM 08/08/18 10/24/18 History [Hair,Skin and Nails] folic acid 1 mg PO DAILY 09/21/18 10/24/18 History sucralfate [Carafate] 1 g PO ACHS 09/21/18 10/24/18 History oxycodone 5 mg PO Q4H PRN 10/24/18 10/24/18 History Allergies Allergy/AdvReac Type Severity Reaction Status Date / Time diphenhydramine Allergy Severe seizures/it Verified 10/24/18 11:50 mya/tremo rs bupropion Allergy Intermediate Palpitation Verified 10/24/18 11:50 s clarithromycin Allergy Intermediate HIVES Verified 10/24/18 11:50 aspirin Allergy Mild hives/ringing Verified 10/24/18 11:50 of ears oxaprozin Allergy Mild nausea/vomi Verified 10/24/18 11:50 ting salicylates Allergy Mild ringing in Verified 10/24/18 11:50 ears/hives tramadol Allergy Mild hives/upset Verified 10/24/18 11:50 stomach Past Med/Surg History Medical History 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 Physical Exam Vital Signs Vital Signs - 24 hr 10/24/18 10:33 10/24/18 10:34 10/24/18 10:36 Temperature 36.7 C Temperature Source Oral Sepsis Recent Fever Within 48 Hours No Sepsis Action Taken by Nursing No Action Required Pulse Rate 88 89 Pulse Rate from SpO2 Sensor 86 88 Pulse Rhythm Regular Pulse Strength Normal Respiratory Rate 23 27 H Respiratory Effort / Characteristics Non-Labored Spontaneous Respiratory Depth Normal Respiratory Pattern Regular Blood Pressure 84/57 L Blood Pressure Mean 66 Pulse Oximetry 85 L 68 L Oxygen Delivery Method Nasal Cannula Room Air Oxygen Flow Rate 2 10/24/18 10:37 10/24/18 11:00 10/24/18 11:30 Temperature Temperature Source Sepsis Recent Fever Within 48 Hours Sepsis Action Taken by Nursing Pulse Rate 82 81 78 Pulse Rate from SpO2 Sensor 81 81 78 Pulse Rhythm Pulse Strength Respiratory Rate 18 22 19 Respiratory Effort / Characteristics Respiratory Depth Respiratory Pattern Blood Pressure 82/59 L 90/59 L 95/64 L Blood Pressure Mean 66 69 74 Pulse Oximetry 91 97 97 Oxygen Delivery Method Oxygen Flow Rate 10/24/18 12:00 10/24/18 12:30 10/24/18 13:00 Temperature Temperature Source Sepsis Recent Fever Within 48 Hours Sepsis Action Taken by Nursing Pulse Rate 75 64 66 Pulse Rate from SpO2 Sensor Pulse Rhythm Pulse Strength Respiratory Rate 16 16 17 Respiratory Effort / Characteristics Respiratory Depth Respiratory Pattern Blood Pressure 109/65 121/77 124/80 Blood Pressure Mean 79 91 94 Pulse Oximetry Oxygen Delivery Method Oxygen Flow Rate 10/24/18 13:30 10/24/18 13:31 10/24/18 15:39 Temperature Temperature Source Sepsis Recent Fever Within 48 Hours Sepsis Action Taken by Nursing Pulse Rate 76 74 94 H Pulse Rate from SpO2 Sensor Pulse Rhythm Pulse Strength Respiratory Rate 14 20 19 Respiratory Effort / Characteristics Respiratory Depth Respiratory Pattern Blood Pressure 127/82 Blood Pressure Mean 97 Pulse Oximetry Oxygen Delivery Method Oxygen Flow Rate 10/24/18 15:54 10/24/18 15:59 10/24/18 16:01 Temperature Temperature Source Sepsis Recent Fever Within 48 Hours Sepsis Action Taken by Nursing Pulse Rate 93 H 95 H 95 H Pulse Rate from SpO2 Sensor Pulse Rhythm Pulse Strength Respiratory Rate 17 15 22 Respiratory Effort / Characteristics Respiratory Depth Respiratory Pattern Blood Pressure 128/90 128/90 Blood Pressure Mean 102 102 Pulse Oximetry Oxygen Delivery Method Oxygen Flow Rate 10/24/18 16:30 Temperature Temperature Source Sepsis Recent Fever Within 48 Hours Sepsis Action Taken by Nursing Pulse Rate 98 H Pulse Rate from SpO2 Sensor Pulse Rhythm Pulse Strength Respiratory Rate 16 Respiratory Effort / Characteristics Respiratory Depth Respiratory Pattern Blood Pressure Blood Pressure Mean Pulse Oximetry Oxygen Delivery Method Oxygen Flow Rate GENERAL: Awake but drowsy, alert to voice, follows commands, in no distress. HENT: Normocephalic, atraumatic. Oropharynx with dry mucous membranes and otherwise unremarkable. EYES: Normal conjunctiva. Sclera non-icteric. Pupils 4mm and sluggish. No nystagmus. NECK: Supple. No nuchal rigidity. FROM. No JVD. RESPIRATORY: CTAB. CARDIAC: Regular rate, normal rhythm. Extremities warm and well perfused. Pulses equal. ABDOMEN: Soft, non-distended. No tenderness to palpation. No rebound or guarding. No masses. RECTAL: Deferred. MUSCULOSKELETAL: Chest examination reveals no tenderness. The back is symmetrical on inspection without obvious abnormality. There is no CVA tenderness to palpation. No joint edema. LOWER EXTREMITIES: Calves are equal size bilaterally and non-tender. No edema. No discoloration. NEURO: Normal sensorium. No sensory or motor deficits noted. Moving all extremities equally. SKIN: No rash or jaundice noted. Course 1200: Past medical records reviewed. The patient was evaluated in room C09. A complete history and physical exam was performed. 1452: I checked on the patient, she is awake. 1549: I spoke with Mehul Showers the patients son. He notes that his brother found the patient today. He states that he can come to the hospital in an hour to discuss the treatment plan with the patient. 1652: The son notes that his mother was more coherent yesterday and that she is not currently competent enough to make decisions regarding her treatment. 1653: [facility] She will evaluate for further management. Administered Medications Lorazepam (Ativan) 1 - 3 mg PO UD PRN; Protocol PRN Reason: EtoH Withdrawal AWSS 6-10+ Stop: 11/23/18 19:37 Last Admin: 10/24/18 22:37 Dose: 2 mg Documented by: [id number] Admin: 10/24/18 19:55 Dose: 3 mg Documented by: [id number] Magnesium Oxide (Mag-Ox) 800 mg PO [facility] Stop: 11/23/18 20:59 Last Admin: 10/24/18 21:57 Dose: 800 mg Documented by: [id number] Multivitamins/Minerals (Caltrate Plus) 1 tab PO BID MICHELLE Stop: 11/23/18 20:59 Last Admin: 10/24/18 21:58 Dose: 1 tab Documented by: [id number] Pantoprazole Sodium (Protonix) 40 mg PO BID MICHELLE Stop: 11/23/18 20:59 Last Admin: 10/24/18 21:57 Dose: 40 mg Documented by: [id number] Discontinued Medications Gabapentin (Neurontin) 1,200 mg PO TODAY@2000 MICHELLE Stop: 10/24/18 20:01 Last Admin: 10/24/18 20:29 Dose: 1,200 mg Documented by: [id number] Sodium Chloride (Nss 1000ml) 1,000 mls @ 999 mls/hr IV .Q1H1M ONE Stop: 10/24/18 12:46 Last Infusion: 10/24/18 15:51 Dose: 0 mls/hr Documented by: [id number] Admin: 10/24/18 12:49 Dose: 999 mls/hr Documented by: [id number] Multivitamins 10 ml/ Thiamine HCl 100 mg/ Folic Acid 1 mg/Sodium Chloride 1,011.2 mls @ 1,011.2 mls/hr IV .Q1H ONE Stop: 10/24/18 12:45 Last Infusion: 10/24/18 15:51 Dose: 0 mls/hr Documented by: [id number] Admin: 10/24/18 12:49 Dose: 1,011.2 mls/hr Documented by: [id number] Ceftriaxone Sodium (Rocephin) 2,000 mg in 70 mls @ 140 mls/hr IV NOW STA Stop: 10/24/18 14:38 Last Admin: 10/24/18 14:41 Dose: Not Given Documented by: [id number] Ertapenem (Invanz) 10 mls @ 2 mls/min IV NOW STA Stop: 10/24/18 16:56 Last Admin: 10/24/18 18:16 Dose: 2 mls/min Documented by: [id number] Multivitamins 10 ml/ Thiamine HCl 100 mg/ Folic Acid 1 mg/Sodium Chloride 1,011.2 mls @ 500 mls/hr IV .Q2H2M ONE Stop: 10/24/18 22:01 Last Infusion: 10/24/18 21:55 Dose: 500 mls/hr Documented by: [id number] Infusion: 10/24/18 21:16 Dose: 0 mls/hr Documented by: [id number] Admin: 10/24/18 20:31 Dose: 500 mls/hr Documented by: [id number] Thiamine HCl 100 mg/ Syringe 10 mls @ 2 mls/min IV NOW STA Stop: 10/24/18 20:19 Last Admin: 10/24/18 21:48 Dose: 2 mls/min Documented by: [id number] Lorazepam (Ativan) 1 mg SL NOW STA Stop: 10/24/18 16:57 Last Admin: 10/24/18 17:49 Dose: 1 mg Documented by: [id number] Thiamine HCl (Vitamin B-1) 100 mg IM NOW STA Stop: 10/24/18 19:39 Last Admin: 10/24/18 22:15 Dose: Not Given Documented by: [id number] Medical Decision Making Differential Diagnosis Differential includes acute coronary syndrome, myocardial infarction, CVA, TIA, anemia, infection, pneumonia, UTI, pyelonephritis, poor nutrition, dehydration, electrolyte disturbance,hypoglycemia. Medical Records Attestation: I reviewed the patient's medical records. Home Medications Current Medication List: was personally reviewed by me Laboratory Data Attestation: I reviewed the patient's lab results. Result diagrams: 10/24/18 12:10 10/24/18 12:10 Lab Results 10/24/18 10/24/18 10/24/18 Range/Units 12:10 12:10 12:10 WBC 2.05 L (4.8-10.8) K/uL RBC 3.70 L (4.2-5.4) M/uL Hgb 8.8 L (12.0-16.0) g/dL Hct 28.2 L (37-47) % MCV 76.2 L (80-100) fL MCH 23.8 L (25-34) pg MCHC 31.2 L (32-36) g/dL RDW Std Deviation 63.9 H (36.4-46.3) fL RDW Coeff of Chetan 22.6 H (11.5-14.5) % Plt Count 111 L (130-400) K/uL Immature Gran % (Auto) 0.0 % Neut % (Auto) 53.6 % Lymph % (Auto) 31.7 % [place] % (Auto) 9.8 % Eos % (Auto) 4.4 % Baso % (Auto) 0.5 % Immature Gran # (Auto) 0.00 (0.00-0.02) K/uL Neut # (Auto) 1.10 L (1.4-6.5) K/uL Lymph # (Auto) 0.65 L (1.2-3.4) K/uL [place] # (Auto) 0.20 (0.11-0.59) K/uL Eos # (Auto) 0.09 (0-0.5) K/uL Baso # (Auto) 0.01 (0-0.2) K/uL Platelet Estimate Decreased L (Normal) Hypochromasia Present Anisocytosis Present PT 11.7 (9.0-12.0) Seconds INR 1.2 H (0.9-1.1) VBG pH (7.36-7.41) VBG pCO2 (38-50) mmHg VBG pO2 mmHg VBG HCO3 mmol/L VBG O2 Saturation % VBG Base Excess mEq/L Barometric Pressure mm/Hg Sodium 142 (136-145) mmol/L Potassium 4.1 (3.5-5.1) mmol/L Chloride 107 (98-107) mmol/L Carbon Dioxide 28 (21-32) mmol/L Anion Gap 7.0 (3-11) BUN 5 L (7-18) mg/dl Creatinine 0.51 L (0.6-1.2) mg/dl Est Cr Clr Drug Dosing Not Reportable Est GFR ( Amer) 126.3 Est GFR (Non-Af Amer) 109.0 BUN/Creatinine Ratio 9.4 L (10-20) Glucose 81 (70-99) mg/dl Lactate (0.4-2.0) mmol/L Calcium 8.5 (8.5-10.1) mg/dl Phosphorus 3.9 (2.5-4.9) mg/dl Magnesium 2.1 (1.8-2.4) mg/dl Total Bilirubin 0.8 (0.2-1) mg/dl Direct Bilirubin 0.3 H (0-0.2) mg/dl AST 50 H (15-37) U/L ALT 30 (12-78) U/L Alkaline Phosphatase 129 H (45-117) U/L Total Creatine Kinase 68 (26-192) U/L NT-Pro-B Natriuret Pep 84 (0-900) pg/ml Total Protein 6.9 (6.4-8.2) gm/dl Albumin 3.3 L (3.4-5.0) gm/dl Globulin 3.6 (2.5-4.0) gm/dl Albumin/Globulin Ratio 0.9 (0.9-2) Folate (>5.38) ng/ml TSH 0.896 (0.300-4.500) uIu/ml Urine Color Urine Appearance (Clear) Urine pH (4.5-7.5) Ur Specific [place] (1.000-1.030) Urine Protein (Negative) Urine Glucose (UA) (Negative) Urine Ketones (Negative) Urine Blood (Negative) Urine Nitrite (Negative) Urine Bilirubin (Negative) Urine Urobilinogen (Negative) Ur Leukocyte Esterase (Negative) Urine WBC (Auto) (0-5) /hpf Urine RBC (Auto) (0-4) /hpf U Hyaline Cast (Auto) (0-5) /lpf U Epithel Cells (Auto) (0-5) /lpf Urine Bacteria (Auto) (Negative) Urine Opiates Screen (Neg) Ur Methadone, Qual (Neg) Urine Barbiturates (Neg) Ur Phencyclidine (PCP) (Neg) U Amphetamin/Meth Scrn (Neg) MDMA (Ecstasy) Screen (Neg) U Benzodiazepines Scrn (Neg) Ur Cocaine Metabolite (Neg) U Marijuana (THC) Screen (Neg) Ethyl Alcohol mg/dL (0-3) mg/dl 10/24/18 10/24/18 10/24/18 Range/Units 12:29 12:29 12:29 WBC (4.8-10.8) K/uL RBC (4.2-5.4) M/uL Hgb (12.0-16.0) g/dL Hct (37-47) % MCV (80-100) fL MCH (25-34) pg MCHC (32-36) g/dL RDW Std Deviation (36.4-46.3) fL RDW Coeff of Chetan (11.5-14.5) % Plt Count (130-400) K/uL Immature Gran % (Auto) % Neut % (Auto) % Lymph % (Auto) % [place] % (Auto) % Eos % (Auto) % Baso % (Auto) % Immature Gran # (Auto) (0.00-0.02) K/uL Neut # (Auto) (1.4-6.5) K/uL Lymph # (Auto) (1.2-3.4) K/uL [place] # (Auto) (0.11-0.59) K/uL Eos # (Auto) (0-0.5) K/uL Baso # (Auto) (0-0.2) K/uL Platelet Estimate (Normal) Hypochromasia Anisocytosis PT (9.0-12.0) Seconds INR (0.9-1.1) VBG pH 7.41 (7.36-7.41) VBG pCO2 45 (38-50) mmHg VBG pO2 45 mmHg VBG HCO3 28 mmol/L VBG O2 Saturation 77.2 % VBG Base Excess 2.9 mEq/L Barometric Pressure 738.9 mm/Hg Sodium (136-145) mmol/L Potassium (3.5-5.1) mmol/L Chloride (98-107) mmol/L Carbon Dioxide (21-32) mmol/L Anion Gap (3-11) BUN (7-18) mg/dl Creatinine (0.6-1.2) mg/dl Est Cr Clr Drug Dosing Est GFR ( Amer) Est GFR (Non-Af Amer) BUN/Creatinine Ratio (10-20) Glucose (70-99) mg/dl Lactate 2.3 H* (0.4-2.0) mmol/L Calcium (8.5-10.1) mg/dl Phosphorus (2.5-4.9) mg/dl Magnesium (1.8-2.4) mg/dl Total Bilirubin (0.2-1) mg/dl Direct Bilirubin (0-0.2) mg/dl AST (15-37) U/L ALT (12-78) U/L Alkaline Phosphatase (45-117) U/L Total Creatine Kinase (26-192) U/L NT-Pro-B Natriuret Pep (0-900) pg/ml Total Protein (6.4-8.2) gm/dl Albumin (3.4-5.0) gm/dl Globulin (2.5-4.0) gm/dl Albumin/Globulin Ratio (0.9-2) Folate (>5.38) ng/ml TSH (0.300-4.500) uIu/ml Urine Color Urine Appearance (Clear) Urine pH (4.5-7.5) Ur Specific [place] (1.000-1.030) Urine Protein (Negative) Urine Glucose (UA) (Negative) Urine Ketones (Negative) Urine Blood (Negative) Urine Nitrite (Negative) Urine Bilirubin (Negative) Urine Urobilinogen (Negative) Ur Leukocyte Esterase (Negative) Urine WBC (Auto) (0-5) /hpf Urine RBC (Auto) (0-4) /hpf U Hyaline Cast (Auto) (0-5) /lpf U Epithel Cells (Auto) (0-5) /lpf Urine Bacteria (Auto) (Negative) Urine Opiates Screen (Neg) Ur Methadone, Qual (Neg) Urine Barbiturates (Neg) Ur Phencyclidine (PCP) (Neg) U Amphetamin/Meth Scrn (Neg) MDMA (Ecstasy) Screen (Neg) U Benzodiazepines Scrn (Neg) Ur Cocaine Metabolite (Neg) U Marijuana (THC) Screen (Neg) Ethyl Alcohol mg/dL 116.9 H (0-3) mg/dl 10/24/18 10/24/18 10/24/18 Range/Units 12:55 12:55 17:38 WBC (4.8-10.8) K/uL RBC (4.2-5.4) M/uL Hgb (12.0-16.0) g/dL Hct (37-47) % MCV (80-100) fL MCH (25-34) pg MCHC (32-36) g/dL RDW Std Deviation (36.4-46.3) fL RDW Coeff of Chetan (11.5-14.5) % Plt Count (130-400) K/uL Immature Gran % (Auto) % Neut % (Auto) % Lymph % (Auto) % [place] % (Auto) % Eos % (Auto) % Baso % (Auto) % Immature Gran # (Auto) (0.00-0.02) K/uL Neut # (Auto) (1.4-6.5) K/uL Lymph # (Auto) (1.2-3.4) K/uL [place] # (Auto) (0.11-0.59) K/uL Eos # (Auto) (0-0.5) K/uL Baso # (Auto) (0-0.2) K/uL Platelet Estimate (Normal) Hypochromasia Anisocytosis PT (9.0-12.0) Seconds INR (0.9-1.1) VBG pH (7.36-7.41) VBG pCO2 (38-50) mmHg VBG pO2 mmHg VBG HCO3 mmol/L VBG O2 Saturation % VBG Base Excess mEq/L Barometric Pressure mm/Hg Sodium (136-145) mmol/L Potassium (3.5-5.1) mmol/L Chloride (98-107) mmol/L Carbon Dioxide (21-32) mmol/L Anion Gap (3-11) BUN (7-18) mg/dl Creatinine (0.6-1.2) mg/dl Est Cr Clr Drug Dosing Est GFR ( Amer) Est GFR (Non-Af Amer) BUN/Creatinine Ratio (10-20) Glucose (70-99) mg/dl Lactate (0.4-2.0) mmol/L Calcium (8.5-10.1) mg/dl Phosphorus (2.5-4.9) mg/dl Magnesium (1.8-2.4) mg/dl Total Bilirubin (0.2-1) mg/dl Direct Bilirubin (0-0.2) mg/dl AST (15-37) U/L ALT (12-78) U/L Alkaline Phosphatase (45-117) U/L Total Creatine Kinase (26-192) U/L NT-Pro-B Natriuret Pep (0-900) pg/ml Total Protein (6.4-8.2) gm/dl Albumin (3.4-5.0) gm/dl Globulin (2.5-4.0) gm/dl Albumin/Globulin Ratio (0.9-2) Folate > 24.00 (>5.38) ng/ml TSH (0.300-4.500) uIu/ml Urine Color Yellow Urine Appearance Clear (Clear) Urine pH 7.5 (4.5-7.5) Ur Specific [place] 1.007 (1.000-1.030) Urine Protein Negative (Negative) Urine Glucose (UA) Negative (Negative) Urine Ketones Negative (Negative) Urine Blood Negative (Negative) Urine Nitrite Positive A (Negative) Urine Bilirubin Negative (Negative) Urine Urobilinogen Negative (Negative) Ur Leukocyte Esterase 3+ H (Negative) Urine WBC (Auto) >30 H (0-5) /hpf Urine RBC (Auto) 0-4 (0-4) /hpf U Hyaline Cast (Auto) 0 (0-5) /lpf U Epithel Cells (Auto) 0-5 (0-5) /lpf Urine Bacteria (Auto) 2+ H (Negative) Urine Opiates Screen Neg (Neg) Ur Methadone, Qual Neg (Neg) Urine Barbiturates Neg (Neg) Ur Phencyclidine (PCP) Neg (Neg) U Amphetamin/Meth Scrn Neg (Neg) MDMA (Ecstasy) Screen Neg (Neg) U Benzodiazepines Scrn Neg (Neg) Ur Cocaine Metabolite Neg (Neg) U Marijuana (THC) Screen Pos H (Neg) Ethyl Alcohol mg/dL (0-3) mg/dl 10/24/18 Range/Units 17:44 WBC (4.8-10.8) K/uL RBC (4.2-5.4) M/uL Hgb (12.0-16.0) g/dL Hct (37-47) % MCV (80-100) fL MCH (25-34) pg MCHC (32-36) g/dL RDW Std Deviation (36.4-46.3) fL RDW Coeff of Chetan (11.5-14.5) % Plt Count (130-400) K/uL Immature Gran % (Auto) % Neut % (Auto) % Lymph % (Auto) % [place] % (Auto) % Eos % (Auto) % Baso % (Auto) % Immature Gran # (Auto) (0.00-0.02) K/uL Neut # (Auto) (1.4-6.5) K/uL Lymph # (Auto) (1.2-3.4) K/uL [place] # (Auto) (0.11-0.59) K/uL Eos # (Auto) (0-0.5) K/uL Baso # (Auto) (0-0.2) K/uL Platelet Estimate (Normal) Hypochromasia Anisocytosis PT (9.0-12.0) Seconds INR (0.9-1.1) VBG pH (7.36-7.41) VBG pCO2 (38-50) mmHg VBG pO2 mmHg VBG HCO3 mmol/L VBG O2 Saturation % VBG Base Excess mEq/L Barometric Pressure mm/Hg Sodium (136-145) mmol/L Potassium (3.5-5.1) mmol/L Chloride (98-107) mmol/L Carbon Dioxide (21-32) mmol/L Anion Gap (3-11) BUN (7-18) mg/dl Creatinine (0.6-1.2) mg/dl Est Cr Clr Drug Dosing Est GFR ( Amer) Est GFR (Non-Af Amer) BUN/Creatinine Ratio (10-20) Glucose (70-99) mg/dl Lactate 1.3 (0.4-2.0) mmol/L Calcium (8.5-10.1) mg/dl Phosphorus (2.5-4.9) mg/dl Magnesium (1.8-2.4) mg/dl Total Bilirubin (0.2-1) mg/dl Direct Bilirubin (0-0.2) mg/dl AST (15-37) U/L ALT (12-78) U/L Alkaline Phosphatase (45-117) U/L Total Creatine Kinase (26-192) U/L NT-Pro-B Natriuret Pep (0-900) pg/ml Total Protein (6.4-8.2) gm/dl Albumin (3.4-5.0) gm/dl Globulin (2.5-4.0) gm/dl Albumin/Globulin Ratio (0.9-2) Folate (>5.38) ng/ml TSH (0.300-4.500) uIu/ml Urine Color Urine Appearance (Clear) Urine pH (4.5-7.5) Ur Specific [place] (1.000-1.030) Urine Protein (Negative) Urine Glucose (UA) (Negative) Urine Ketones (Negative) Urine Blood (Negative) Urine Nitrite (Negative) Urine Bilirubin (Negative) Urine Urobilinogen (Negative) Ur Leukocyte Esterase (Negative) Urine WBC (Auto) (0-5) /hpf Urine RBC (Auto) (0-4) /hpf U Hyaline Cast (Auto) (0-5) /lpf U Epithel Cells (Auto) (0-5) /lpf Urine Bacteria (Auto) (Negative) Urine Opiates Screen (Neg) Ur Methadone, Qual (Neg) Urine Barbiturates (Neg) Ur Phencyclidine (PCP) (Neg) U Amphetamin/Meth Scrn (Neg) MDMA (Ecstasy) Screen (Neg) U Benzodiazepines Scrn (Neg) Ur Cocaine Metabolite (Neg) U Marijuana (THC) Screen (Neg) Ethyl Alcohol mg/dL (0-3) mg/dl Imaging Data Radiologist's Impression: Radiology results as stated below per my review and the radiologist's interpretation: XR chest 1V portable CLINICAL HISTORY: 53 years-old Female presenting with overdose. TECHNIQUE: Portable upright AP view of the chest was obtained. COMPARISON: 09/23/2018. FINDINGS: Low lung volumes with elevation of the bilateral hemidiaphragms as on prior exam. This obscures the cardiac silhouette. Prominence of pulmonary vasculature with bronchial wall cuffing and added density with irregular bandlike opacities in a perihilar distribution. These findings are new from prior. No large effusion or pneumothorax. Osteopenia may be present. Surgical clips project over the abdomen. Gaseous distended bowel suggested beneath the right hemidiaphragm as on prior exam. IMPRESSION: 1. Volume overload with congestive change and early central predominant pulmonary edema suspected. 2. Low lung volumes as on prior exam. Electronically signed by: Luis A Cali M.D. 10/24/2018 11:50 AM ECG Data Attestation: I personally reviewed and interpreted this ECG as follows: Indication: altered mental status Rate (beats per minute): 84 Rhythm: normal sinus Findings: + other (LVH) and + nonspecific-ST abn (Lateral); no ST depression, no ST elevation and no acute ischemic change Blood Pressure Blood Pressure Findings: Elevated blood pressure Blood Pressure Disposition: further management by hospitalist [facility] Narrative The patient is a 53-year-old woman with a past medical history of alcohol abuse, withdrawal, chronic pancytopenia, history of encephalopathy, rhabdomyolysis, metabolic acidosis, who presents emergency department with decreased responsiveness after was seen by her son in the setting of drinking alcohol and question of ingestion of medications per hpi. On arrival the patient is drowsy appearing but alert to voice and will follow commands but then will go back to [facility]. The patient appears clinically dry. There is no evidence of trauma. She is moving all extremities equally without focal neuro deficits. EKG without overt acute ischemia. Chest x-ray with question volume overload however the patient clinically appears dry. WBC to similar to prior values. H/H 8.8/28.2 also similar to prior range of values. Platelets 111 also within range prior values. INR 1.2. Lactate slightly elevated at 2.3 however VBG without acidemia. Chemistry without acidosis or anion gap elevation.. Creatinine within normal limits. LFTs similar to prior values and improved from prior admission. UA with possible UTI with nitrite positive, LE 3+, WBC> 30, without epithelial cells and 2+ bacteria. Patient does have a prior history of ESBL Klebsiella. Therefore treatment was initiated with ertapenem. Patient's alcohol was 116 on arrival with a drug screen positive for THC. However while the patient did improve in terms of her mentation during her ED observation with banana bag, given her relatively low alcohol level in the setting of the patient's history and still with persistent confusion/encephalopathy reasonable to admit the patient for further management. No tremors at this time to suggest etoh withdrawal but patient placed on CIWA. I did review this with the patient's son who came to the emergency room and evaluate saw her at the bedside and he confirmed that the patient was much more lucid and coherent yesterday and we agreed that the patient does not have decision-making capacity at this time as when she is asked to explain to us with our concerns are regarding her health she is unable to do so. Thus, case was discussed with Luzmaria brown, [facility], who evaluate the patient for admission. Impression & Plan Encephalopathy, UTI (urinary tract infection), Alcohol intoxication Discharge Plan Visit Data *Final* Discharge Date/Time: 10/24/18 19:07 Chief Complaint: Altered Mental Status Stated Complaint: ams ED Provider: Glen Alves Discharge Problem: Encephalopathy, UTI (urinary tract infection), Alcohol intoxication Patient Disposition: Admitted As Inpatient Discharge Instructions Interventions: ED Discharge Assessment Last Done: 10/24/18 19:07 Discharge Problem: UTI (urinary tract infection) Qualifiers: Urinary tract infection type: site unspecified Hematuria presence: without hematuria Qualified Code(s): N39.0 - Urinary tract infection, site not specified Alcohol intoxication Qualifiers: Complication of substance-induced condition: with unspecified complication Qualified Code(s): F10.929 - Alcohol use, unspecified with intoxication, unspecified The scribe's documentation has been prepared under my direction and personally reviewed by me in its entirety. I confirm that the note above accurately reflects all work, treatment, procedures, and medical decision making performed by me.
[2018-10-24] MEDS ORDERED: GABAPENTIN 1200MG ALCOHOL WITHDRAWAL LOAD PO STA (19:38)
[2018-10-24] MEDS ORDERED: THIAMINE HCL 100 MG/ML 2 ML VIAL IM STA (19:38)
[2018-10-24] MEDS: LORazepam 1 MG TAB PO PRN ×2 (19:55→22:37)
[2018-10-24] MEDS ORDERED: GABAPENTIN 600 MG TAB PO SCH (20:00)
[2018-10-24] MEDS ORDERED: THIAMINE HCL 100 MG in SYRINGE 9 ML IV STA (20:14)
[2018-10-24] MEDS: THIAMINE HCL 100 MG in SYRINGE 9 ML IV STA ×2 (20:32→21:48)
[2018-10-24] MEDS: PANTOprazole 40 MG TAB PO SCH (21:57)
[2018-10-24] MEDS: MAGNESIUM OXIDE 400 MG TAB PO SCH (21:57)
[2018-10-24] MEDS: CALCIUM 600MG + VIT D 400 IU TAB PO SCH (21:58)
[2018-10-24] MEDS ORDERED: LORazepam 2 MG/4 ML VIAL IV PRN (22:22)
--- NOTE | 2018-10-24 22:53 | CT Scan Report ---
CT head/brain wo con CLINICAL HISTORY: confusion COMPARISON STUDY: 09/21/2018 TECHNIQUE: Axial CT of the brain is performed from the vertex to the skull base. IV contrast was not administered for this examination. A dose lowering technique was utilized adhering to the principles of ALARA. CT DOSE: 537.48 mGy.cm FINDINGS: No intra or extra-axial mass lesions are visualized. There is no CT evidence of acute cortical infarc tion. There is no evidence of midline shift. There is no acute hemorrhage. No calvarial fractures ar e visualized. There is mild motion artifact. There is no evidence of pathologic ventricular dilatation. There is no evidence of acute sinusitis IMPRESSION: No acute intracranial findings Electronically signed by: Yahir Valencia M.D. 10/24/2018 10:52 PM
[2018-10-25] MEDS: GABAPENTIN 600 MG TAB PO SCH ×3 (06:36→21:24)
[2018-10-25 07:30] LABS: INR 1.2 (0.9-1.1); Prothrombin Time 12.6 Seconds (9.0-12.0)
[2018-10-25 08:08] LABS: Albumin Level 3.2 gm/dl (3.4-5.0); BUN Creatinine Ratio 11.9 (10-20); Bilirubin,Total 1.6 mg/dl (0.2-1); Calcium 7.9 mg/dl (8.5-10.1); Creatinine Clr Calc Pharmacy 120.7 ml/min; Est GFR (African American) 130.7; Est GFR (Non-African American) 112.8; Globulin 3.1 gm/dl (2.5-4.0); Potassium 4.1 mmol/L (3.5-5.1); Total Protein 6.3 gm/dl (6.4-8.2)
[2018-10-25 08:13] LABS: Mean Corpuscular Hgb Conc 30.7 g/dL (32-36)
[2018-10-25] MEDS: CITALOPRAM 20 MG TAB PO SCH (08:24)
[2018-10-25] MEDS: CALCIUM 600MG + VIT D 400 IU TAB PO SCH ×2 (08:24→21:22)
[2018-10-25] MEDS: PANCREAZE (LIPASE 10,500U) CAP PO SCH ×3 (08:24→17:00)
[2018-10-25] MEDS: THIAMINE HCL 100 MG TAB PO SCH (08:24)
[2018-10-25] MEDS: PANTOprazole 40 MG TAB PO SCH ×2 (08:24→21:23)
[2018-10-25 09:04] LABS: Hematocrit (blood only) 28.7 % (37-47); Hemoglobin 8.8 g/dL (12.0-16.0); Mean Corpuscular Hemoglobin 23.5 pg (25-34); Mean Corpuscular Volume 76.5 fL (80-100); RDW Standard Deviation 61.9 fL (36.4-46.3); Red Blood Count 3.75 M/uL (4.2-5.4); White Blood Count 2.05 K/uL (4.8-10.8)
[2018-10-25 09:06] LABS: Platelet Count 80 K/uL (130-400); Platelet Estimate Decreased (Normal)
[2018-10-25] MEDS ORDERED: PIPERACILLIN/TAZOBACTAM 3.375 GM in DEXTROSE 5% 100 ML IV ONE (12:00)
[2018-10-25] MEDS: FOLIC ACID 1 MG TAB PO SCH (12:47)
[2018-10-25] MEDS ORDERED: PIPERACILL/TAZOBAC CONSULT ACTIVE PRN (15:07)
[2018-10-25] MEDS: PIPERACILLIN/TAZOBACTAM 3.375 GM in DEXTROSE 5% 100 ML IV SCH (17:00)
--- NOTE | 2018-10-25 17:38 | Hospitalist Progress Note ---
Date of Service October 25, 2018 Assessment & Plan (1) Altered mental status: Patient is a 53 yr female with H/O anxiety, alcoholic cirrhosis, portal hypertension, esophageal varices, thrombocytopenia, h/o seizure h/o pancreatitis presented to ER for altered mental status. Limited history obtained from patient secondary to altered mental status. 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 Continue Alcohol withdrawal protocol Continue thiamine, folic acid Abx for UTI (2) UTI (urinary tract infection): H/O recent UTI in 09/2018 with urine culture positive for Klebsiella, ESBL Sepsis/UTI Lactate levels normalized Blood Cx:Pending Urine Cx: Enterococcus species, gram-negative bacilli Ertapenem Transitioned to Zosyn Day #1 (3) Alcoholic cirrhosis: Monitor LFTs Normal ammonia levels (4) Alcohol use: Management as above (5) Chronic anemia: (6) Thrombocytopenia: Chronic anemia, chronic thrombocytopenia likely secondary to alcohol abuse, cirrhosis Monitor CBC DVT Px: SCDs Re: Anemia, Thrombocytopenia CODE STATUS full code Disposition PT/OT prior to discharge Subjective Patient is seen and examined at bedside Very sleepy lethargic this morning "I feel tired" Had breakfast and had no complaints this morning as per staff Received multiple doses of Ativan overnight Saturating well on room air No family at bedside History is limited secondary to lethargy Review of Systems Review of Systems: Unobtainable due to reduced consciousness Physical Exam Physical Exam: Physical Exam: Vitals signs as noted above General Appearance: Chronically ill-appearing, lethargic Head: normocephalic, Atraumatic Eyes: normal inspection, EOMI Neck: supple, Trachea midline Respiratory/Chest: Normal breath sounds, CTA Cardiovascular: S1, S2, No murmur Abdomen/GI:Soft, Non tender, +Scars, Pain pump, Bowel sounds present Extremities/Musculoskelatal:normal inspection, no edema Neurologic/Psych:grossly no focal neurological deficits Skin: normal color, warm Results & Data Vital Signs (Past 12 Hours) Vital Signs Temp Pulse Pulse Resp BP BP Pulse Ox 10/25/18 16:03 37.1 C 75 18 153/83 H 97 10/25/18 11:28 37.2 C 81 18 132/83 97 10/25/18 09:55 82 10/25/18 08:06 36.8 C 79 18 143/87 H 96 Laboratory Results Short CBC 10/25/18 10/25/18 Range/Units 06:44 08:01 WBC Cancelled 2.05 L Hgb Cancelled 8.8 L Hct Cancelled 28.7 L Plt Count Cancelled 80 L BMP 10/25/18 06:44 Sodium 143 Potassium 4.1 Chloride 111 H Carbon Dioxide 24 BUN 6 L Creatinine 0.46 L Glucose 94 Calcium 7.9 L Liver Function 10/25/18 Range/Units 06:44 Total Bilirubin 1.6 H D (0.2-1) mg/dl AST 45 H (15-37) U/L ALT 28 (12-78) U/L Alkaline Phosphatase 136 H (45-117) U/L Albumin 3.2 L (3.4-5.0) gm/dl
[2018-10-25] MEDS ORDERED: ERTAPENEM SODIUM 1,000 MG in SODIUM CHLORIDE 0.9% 50 ML IV SCH (18:00)
[2018-10-25] MEDS: LACTOBACILLUS ACIDOPHILUS (FLORANEX) TAB PO SCH (21:21)
[2018-10-25] MEDS: MAGNESIUM OXIDE 400 MG TAB PO SCH (21:23)
[2018-10-26] MEDS: PIPERACILLIN/TAZOBACTAM 3.375 GM in DEXTROSE 5% 100 ML IV SCH ×3 (01:03→18:07)
[2018-10-26] MEDS: GABAPENTIN 600 MG TAB PO SCH ×3 (05:14→23:21)
[2018-10-26] MEDS: FOLIC ACID 1 MG TAB PO SCH (07:59)
[2018-10-26] MEDS: PANTOprazole 40 MG TAB PO SCH ×2 (07:59→20:18)
[2018-10-26] MEDS: THIAMINE HCL 100 MG TAB PO SCH (08:00)
[2018-10-26] MEDS: CITALOPRAM 20 MG TAB PO SCH (08:00)
[2018-10-26] MEDS: CALCIUM 600MG + VIT D 400 IU TAB PO SCH ×2 (08:00→20:18)
[2018-10-26] MEDS: PANCREAZE (LIPASE 10,500U) CAP PO SCH ×3 (08:01→17:30)
[2018-10-26] MEDS: LACTOBACILLUS ACIDOPHILUS (FLORANEX) TAB PO SCH ×4 (08:01→20:19)
[2018-10-26 08:13] LABS: Hematocrit (blood only) 28.1 % (37-47); Hemoglobin 8.7 g/dL (12.0-16.0); Mean Corpuscular Hemoglobin 23.6 pg (25-34); Mean Corpuscular Volume 76.2 fL (80-100); RDW Coefficient of Variation 22.1 % (11.5-14.5); RDW Standard Deviation 62.3 fL (36.4-46.3); Red Blood Count 3.69 M/uL (4.2-5.4); White Blood Count 1.72 K/uL (4.8-10.8)
[2018-10-26 08:16] LABS: Platelet Count 85 K/uL (130-400); Platelet Estimate Decreased (Normal)
[2018-10-26 08:21] LABS: Albumin Globulin Ratio 0.9 (0.9-2); BUN Creatinine Ratio 8.2 (10-20); Bilirubin,Total 1.1 mg/dl (0.2-1); Calcium 8.6 mg/dl (8.5-10.1); Creatinine Clr Calc Pharmacy 108.9 ml/min; Est GFR (African American) 126.3; Globulin 3.5 gm/dl (2.5-4.0); Potassium 3.4 mmol/L (3.5-5.1); Total Protein 6.5 gm/dl (6.4-8.2)
[2018-10-26] MEDS ORDERED: POTASSIUM CHLORIDE 10 MEQ TABCR PO STA (08:50)
--- NOTE | 2018-10-26 16:41 | Hospitalist Progress Note ---
Date of Service October 26, 2018 Assessment & Plan (1) Altered mental status: Patient is a 53 yr female with H/O anxiety, alcoholic cirrhosis, portal hypertension, esophageal varices, thrombocytopenia, h/o seizure h/o pancreatitis presented to ER for altered mental status. Limited history obtained from patient secondary to altered mental status. 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 difficile; negative Imodium as needed Hypokalemia Due to GI losses Monitor replace Celebrex as needed (3) Alcoholic cirrhosis: Monitor LFTs Normal ammonia levels (4) Alcohol use: Management as above (5) Chronic anemia: (6) Thrombocytopenia: Chronic anemia, chronic thrombocytopenia likely secondary to alcohol abuse, cirrhosis Monitor CBC DVT Px: SCDs Re: Anemia, Thrombocytopenia CODE STATUS full code Disposition PT/OT prior to discharge Subjective Patient is seen and examined at bedside More alert awake today Complains of chronic left-sided pain from prior trauma Has significant diarrhea Denies any chest pain, shortness of breath, dysuria Review of Systems Review of Systems: All systems reviewed & are unremarkable except as noted in HPI & below Physical Exam Physical Exam: Physical Exam: Vitals signs as noted above General Appearance: Chronically ill-appearing Head: normocephalic, Atraumatic Eyes: normal inspection, EOMI Neck: supple, Trachea midline Respiratory/Chest: Normal breath sounds, CTA Cardiovascular: S1, S2, No murmur Abdomen/GI:Soft, Non tender, +Scars, Pain pump, Bowel sounds present Extremities/Musculoskelatal:normal inspection, no edema Neurologic/Psych:grossly no focal neurological deficits Skin: normal color, warm Results & Data Vital Signs (Past 12 Hours) Vital Signs Temp Pulse Pulse Resp BP BP Pulse Ox 10/26/18 15:49 37.1 C 71 18 164/89 H 98 10/26/18 11:20 36.4 C L 75 16 165/91 H 98 10/26/18 09:15 63 10/26/18 07:10 36.7 C 59 L 19 165/83 H 94 Laboratory Results Short CBC 10/26/18 Range/Units 07:30 WBC 1.72 L (4.8-10.8) K/uL Hgb 8.7 L (12.0-16.0) g/dL Hct 28.1 L (37-47) % Plt Count 85 L (130-400) K/uL BMP 10/26/18 07:30 Sodium 145 Potassium 3.4 L D Chloride 113 H Carbon Dioxide 24 BUN 4 L Creatinine 0.51 L Glucose 95 Calcium 8.6 Liver Function 10/26/18 Range/Units 07:30 Total Bilirubin 1.1 H (0.2-1) mg/dl AST 36 (15-37) U/L ALT 26 (12-78) U/L Alkaline Phosphatase 128 H (45-117) U/L Albumin 3.0 L (3.4-5.0) gm/dl
[2018-10-26] MEDS: LOPERAMIDE HCL 2 MG CAP PO PRN (17:29)
[2018-10-26] MEDS: MAGNESIUM OXIDE 400 MG TAB PO SCH (20:18)
[2018-10-27] MEDS: PIPERACILLIN/TAZOBACTAM 3.375 GM in DEXTROSE 5% 100 ML IV SCH (02:25)
[2018-10-27] MEDS ORDERED: DEXTROSE 5% 1,000 ML IV PRN (04:00)
[2018-10-27] MEDS ORDERED: SODIUM CHLORIDE 0.9% 500 ML IV SCH (04:15)
[2018-10-27 06:00] LABS: Hematocrit (blood only) 29.1 % (37-47); Hemoglobin 8.8 g/dL (12.0-16.0); Mean Corpuscular Hemoglobin 23.2 pg (25-34); Mean Corpuscular Hgb Conc 30.2 g/dL (32-36); Mean Corpuscular Volume 76.8 fL (80-100); RDW Coefficient of Variation 22.4 % (11.5-14.5); RDW Standard Deviation 62.9 fL (36.4-46.3); Red Blood Count 3.79 M/uL (4.2-5.4); White Blood Count 2.06 K/uL (4.8-10.8)
[2018-10-27 06:20] LABS: Mean Platelet Volume 9.3 fL (7.4-10.4); Platelet Count 89 K/uL (130-400)
[2018-10-27 06:26] LABS: Albumin Level 3.1 gm/dl (3.4-5.0); Calcium 8.6 mg/dl (8.5-10.1); Creatinine Clr Calc Pharmacy 104.8 ml/min; Est GFR (African American) 124.8; Est GFR (Non-African American) 107.6; Magnesium 1.9 mg/dl (1.8-2.4); Potassium 3.4 mmol/L (3.5-5.1)
[2018-10-27 06:29] LABS: Albumin Globulin Ratio 0.8 (0.9-2); Bilirubin,Total 0.7 mg/dl (0.2-1); Globulin 3.7 gm/dl (2.5-4.0); Total Protein 6.8 gm/dl (6.4-8.2)
[2018-10-27] MEDS: LOPERAMIDE HCL 2 MG CAP PO PRN ×2 (07:44→17:10)
[2018-10-27] MEDS: PANTOprazole 40 MG TAB PO SCH ×2 (07:45→20:09)
[2018-10-27] MEDS: LACTOBACILLUS ACIDOPHILUS (FLORANEX) TAB PO SCH ×4 (07:45→20:09)
[2018-10-27] MEDS: THIAMINE HCL 100 MG TAB PO SCH (07:46)
[2018-10-27] MEDS: CITALOPRAM 20 MG TAB PO SCH (07:46)
[2018-10-27] MEDS: PANCREAZE (LIPASE 10,500U) CAP PO SCH ×3 (07:46→17:11)
[2018-10-27] MEDS: FOLIC ACID 1 MG TAB PO SCH (07:46)
[2018-10-27] MEDS: CALCIUM 600MG + VIT D 400 IU TAB PO SCH ×2 (07:47→20:09)
[2018-10-27] MEDS ORDERED: POTASSIUM CHLORIDE 10 MEQ TABCR PO ONE (09:00)
--- NOTE | 2018-10-27 09:51 | Infectious Disease Consult ---
Date of Consultation October 27, 2018 Assessment & Plan (1) UTI (urinary tract infection): agree with levaquin, can maintain IV for now as she is having abd pain, will amox for E. faecalis in urine, would give 5 days total. History of Present Illness Attending Physician: Messi Garcia MD pt admitted with change in mental status, suspected encephalopathy, has liver cirrhosis. Workup in ER - UA >30wbc, + 2 bacteria. urine culture now growing gao sensitive E. faecalis and highly resistant subassemblies wirer species. she is on IV levaquin and tolerating well. isolate is sensitive to this. she denies any gu symptoms on my exam but states she is having continued diffuse abd pain, poor po intake but denies n/v/d. no f/c. afebrile since admission, blood cultures in Er negative to date. no cp, cough, sob, yan. wbc 2. creat 0.5 pt had etoh level 116 in ER and + UDS thc. Allergies Allergy/AdvReac Type Severity Reaction Status Date / Time diphenhydramine Allergy Severe seizures/it Verified 10/24/18 11:50 mya/tremo rs bupropion Allergy Intermediate Palpitation Verified 10/24/18 11:50 s clarithromycin Allergy Intermediate HIVES Verified 10/24/18 11:50 aspirin Allergy Mild hives/ringing Verified 10/24/18 11:50 of ears oxaprozin Allergy Mild nausea/vomi Verified 10/24/18 11:50 ting salicylates Allergy Mild ringing in Verified 10/24/18 11:50 ears/hives tramadol Allergy Mild hives/upset Verified 10/24/18 11:50 stomach Home Medications Home Medications Medication Instructions Recorded Confirmed Type Creon 1 cap PO TIDM #90 cap 07/04/18 10/24/18 Rx magnesium oxide 800 mg PO HS #15 tab 07/04/18 10/24/18 Rx pantoprazole 40 mg PO BID #60 tab 07/04/18 10/24/18 Rx thiamine HCl (vitamin B1) [Vitamin 100 mg PO QAM #30 tab 07/04/18 10/24/18 Rx B-1] Centrum Silver 1 tab PO QAM 08/08/18 10/24/18 History calcium carbonate-vitamin D3 1 tab PO BID 08/08/18 10/24/18 History [Calcium 500 With D] citalopram [Celexa] 10 mg PO QAM 08/08/18 10/24/18 History gabapentin 300 mg PO TID 08/08/18 10/24/18 History hydroxyzine HCl 25 - 50 mg PO BID PRN 08/08/18 10/24/18 History multivitamin with minerals 3 tab PO QAM 08/08/18 10/24/18 History [Hair,Skin and Nails] folic acid 1 mg PO DAILY 09/21/18 10/24/18 History sucralfate [Carafate] 1 g PO ACHS 09/21/18 10/24/18 History oxycodone 5 mg PO Q4H PRN 10/24/18 10/24/18 History Patient History Medical History 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 Sedative abuse Seizures None for greater than a year Surgical History History of Jeffy-en-Y gastric bypass History of cholecystectomy History of colonoscopy History of esophagogastroduodenoscopy (EGD) History of open reduction and internal fixation (ORIF) procedure left arm/left leg--hardware in place History of tooth extraction all teeth removed History of total hysterectomy with bilateral salpingo-oophorectomy (BSO) Family History Other Aneurysm Cancer No family history of adverse response to anesthesia Stroke Social History Preferred Language: Haitian Communication Ability: Effective Cable Inspector Required: No Beliefs That Will Affect Care: None marital status: Current Living Situation: Alone Other Information That Helps Us Care for You: No (unable to obtain) Feels Safe at Home: Yes Smoking Status: Unknown if ever smoked Hx Alcohol Use: Yes Alcohol type: hard liquor Hx Substance Use: No Review of Systems Review of Systems: All systems reviewed & are unremarkable except as noted in HPI & below Physical Exam Constitutional: WD/WN, vitals as above Eyes: PERRL, conjunctivae normal, anicteric sclerae ENMT: external ear and nose normal, oropharynx normal Neck: normal visual inspection Respiratory: normal respiratory effort, lungs clear to auscultation Cardiovascular: RRR, no murmur, no edema Gastrointestinal (Abdomen): normal bowel sounds, soft, nontender, no hepatosplenomegaly Musculoskeletal: no cyanosis or clubbing, extremities motor strength 5/5 Skin: no rashes, warm and dry Psychiatric: A+Ox3, euthymic affect Results & Data Vital Signs (Past 12 Hours) Vital Signs Temp Pulse Pulse Resp BP Pulse Ox 10/27/18 08:23 57 L 10/27/18 08:16 37.1 C 111 H 18 138/95 97 10/27/18 04:27 37.0 C 70 20 97 10/27/18 01:44 57 L 10/26/18 23:13 36.7 C 78 19 127/80 97 Laboratory Results Microbiology 10/24/18 12:55 Urine,Clean Catch Urine Culture - Preliminary Machine Repair Person species Enterococcus faecalis 10/24/18 17:38 Blood Aerobic Blood Culture - Preliminary No growth in Aerobic bottle after 48 hours. 10/24/18 17:38 Blood Anaerobic Blood Culture - Preliminary No growth in Anaerobic bottle after 48 hours. 10/24/18 12:32 Blood Aerobic Blood Culture - Preliminary No growth in Aerobic bottle after 48 hours. 10/24/18 12:32 Blood Anaerobic Blood Culture - Final PG Care Time/CCT Total # of Minutes Spent Total Time Spent with Patient: Total time spent is greater than 50% in coordination of care (as documented) at patient's floor/unit and/or counseling patient: (1) UTI (urinary tract infection) Hematuria presence: without hematuria Urinary tract infection type: site unspecified Qualified Code(s): N39.0 - Urinary tract infection, site not specified
[2018-10-27] MEDS: LORazepam 1 MG TAB PO PRN ×5 (10:23→22:34)
[2018-10-27] MEDS: LEVOFLOXACIN/D5W 750 MG/150 ML BAG IV SCH (10:24)
[2018-10-27] MEDS: GABAPENTIN 600 MG TAB PO SCH (11:38)
[2018-10-27] MEDS: AMOXICILLIN 500 MG CAP PO SCH ×2 (11:41→20:08)
[2018-10-27] MEDS ORDERED: chlordiazePOXIDE ALCOHOL WITHDRAWL 50MG PO STA (14:15)
[2018-10-27] MEDS: chlordiazePOXIDE HCl 25 MG CAP PO SCH ×2 (15:50→21:47)
[2018-10-27] MEDS ORDERED: PHENAZOPYRIDINE HCL 100 MG TAB PO PRN (18:36)
--- NOTE | 2018-10-27 18:49 | Hospitalist Progress Note ---
Date of Service October 27, 2018 Assessment & Plan (1) Altered mental status: Patient is a 53 yr female with H/O anxiety, alcoholic cirrhosis, portal hypertension, esophageal varices, thrombocytopenia, h/o seizure h/o pancreatitis presented to ER for altered mental status. Limited history obtained from patient secondary to altered mental status. 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 difficile; negative Imodium as needed Hypokalemia Due to GI losses Monitor replace Celebrex as needed (3) Alcoholic cirrhosis: Monitor LFTs Normal ammonia levels (4) Alcohol use: Management as above (5) Chronic anemia: (6) Thrombocytopenia: Chronic anemia, chronic thrombocytopenia likely secondary to alcohol abuse, cirrhosis Monitor CBC DVT Px: SCDs Re: Anemia, Thrombocytopenia CODE STATUS full code Disposition PT/OT prior to discharge Subjective Patient is seen and examined at bedside Has been anxious this morning Diarrhea slowly improving States having chronic pain--left-sided pain from prior trauma Also reports dysuria Denies any chest pain, shortness of breath, dysuria Review of Systems Review of Systems: All systems reviewed & are unremarkable except as noted in HPI & below Physical Exam Physical Exam: Physical Exam: Vitals signs as noted above General Appearance: Chronically ill-appearing Head: normocephalic, Atraumatic Eyes: normal inspection, EOMI Neck: supple, Trachea midline Respiratory/Chest: Normal breath sounds, CTA Cardiovascular: S1, S2, No murmur Abdomen/GI:Soft, Non tender, +Scars, Pain pump, Bowel sounds present Extremities/Musculoskelatal:normal inspection, no edema Neurologic/Psych:grossly no focal neurological deficits Skin: normal color, warm Results & Data Vital Signs (Past 12 Hours) Vital Signs Temp Pulse Pulse Resp BP Pulse Ox 10/27/18 15:45 37.2 C 73 16 145/83 H 97 10/27/18 11:27 37.4 C 95 H 16 137/73 98 10/27/18 08:23 57 L 10/27/18 08:16 37.1 C 111 H 18 138/95 97 Laboratory Results Short CBC 10/27/18 Range/Units 05:44 WBC 2.06 L (4.8-10.8) K/uL Hgb 8.8 L (12.0-16.0) g/dL Hct 29.1 L (37-47) % Plt Count 89 L (130-400) K/uL BMP 10/27/18 05:44 Sodium 143 Potassium 3.4 L Chloride 113 H Carbon Dioxide 24 BUN 6 L Creatinine 0.53 L Glucose 113 H Calcium 8.6 Liver Function 10/27/18 Range/Units 05:44 Total Bilirubin 0.7 (0.2-1) mg/dl AST 24 (15-37) U/L ALT 22 (12-78) U/L Alkaline Phosphatase 119 H (45-117) U/L Albumin 3.1 L (3.4-5.0) gm/dl
[2018-10-27] MEDS ORDERED: ACETAMINOPHEN 1,000 MG/100 ML VIAL IV PRN (19:22)
[2018-10-27] MEDS: MAGNESIUM OXIDE 400 MG TAB PO SCH (20:08)
[2018-10-28] MEDS: chlordiazePOXIDE HCl 25 MG CAP PO SCH ×3 (03:58→15:50)
[2018-10-28] MEDS: LOPERAMIDE HCL 2 MG CAP PO PRN ×2 (07:59→12:20)
[2018-10-28] MEDS: LACTOBACILLUS ACIDOPHILUS (FLORANEX) TAB PO SCH ×4 (07:59→20:55)
[2018-10-28] MEDS: PANTOprazole 40 MG TAB PO SCH ×2 (08:00→20:56)
[2018-10-28] MEDS: AMOXICILLIN 500 MG CAP PO SCH ×3 (08:00→20:55)
[2018-10-28] MEDS: CITALOPRAM 20 MG TAB PO SCH (08:00)
[2018-10-28] MEDS: PANCREAZE (LIPASE 10,500U) CAP PO SCH ×3 (08:01→17:42)
[2018-10-28] MEDS: FOLIC ACID 1 MG TAB PO SCH (08:01)
[2018-10-28] MEDS: CALCIUM 600MG + VIT D 400 IU TAB PO SCH ×2 (08:01→20:55)
[2018-10-28] MEDS: THIAMINE HCL 100 MG TAB PO SCH (08:02)
[2018-10-28 10:11] LABS: Mean Corpuscular Hgb Conc 30.2 g/dL (32-36)
[2018-10-28 10:28] LABS: Hematocrit (blood only) 31.1 % (37-47); Hemoglobin 9.4 g/dL (12.0-16.0); Mean Corpuscular Hemoglobin 23.3 pg (25-34); Mean Corpuscular Volume 77.2 fL (80-100); RDW Coefficient of Variation 22.4 % (11.5-14.5); RDW Standard Deviation 63.5 fL (36.4-46.3); Red Blood Count 4.03 M/uL (4.2-5.4); White Blood Count 3.06 K/uL (4.8-10.8)
[2018-10-28 10:31] LABS: Platelet Count 86 K/uL (130-400)
[2018-10-28] MEDS: LEVOFLOXACIN/D5W 750 MG/150 ML BAG IV SCH (10:37)
[2018-10-28 10:38] LABS: Calcium 8.8 mg/dl (8.5-10.1); Creatinine Clr Calc Pharmacy 108.9 ml/min; Est GFR (African American) 126.3; Potassium 3.8 mmol/L (3.5-5.1)
[2018-10-28] MEDS ORDERED: GABAPENTIN 600 MG TAB PO SCH (12:00)
--- NOTE | 2018-10-28 16:49 | Hospitalist Progress Note ---
Date of Service October 28, 2018 Assessment & Plan (1) Altered mental status: Patient is a 53 yr female with H/O anxiety, alcoholic cirrhosis, portal hypertension, esophageal varices, thrombocytopenia, h/o seizure h/o pancreatitis presented to ER for altered mental status. Limited history obtained from patient secondary to altered mental status. 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 difficile; negative Imodium as needed Hypokalemia Due to GI losses Monitor and replace electrolytes as needed (3) Alcoholic cirrhosis: Monitor LFTs Normal ammonia levels Chronic Pain H/O Trauma Given history of alcohol use disorder, substance use Avoid narcotics as able Plan to resume gabapentin as able (4) Alcohol use: Management as above (5) Chronic anemia: (6) Thrombocytopenia: Chronic anemia, chronic thrombocytopenia likely secondary to alcohol abuse, cirrhosis Monitor CBC DVT Px: SCDs Re: Anemia, Thrombocytopenia CODE STATUS full code Disposition Expected discharge home in stable Subjective Patient is seen and examined at bedside Still has significant diarrhea Less anxious today Has chronic left-sided pain Denies any chest pain, SOB, dysuria Has been sleeping most of the day 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 Review of Systems: All systems reviewed & are unremarkable except as noted in HPI & below Physical Exam Physical Exam: Physical Exam: Vitals signs as noted above General Appearance: Chronically ill-appearing Head: normocephalic, Atraumatic Eyes: normal inspection, EOMI Neck: supple, Trachea midline Respiratory/Chest: Normal breath sounds, CTA Cardiovascular: S1, S2, No murmur Abdomen/GI:Soft, Non tender, +Scars, Pain pump, Bowel sounds present Extremities/Musculoskelatal:normal inspection, no edema Neurologic/Psych:grossly no focal neurological deficits Skin: normal color, warm Results & Data Vital Signs (Past 12 Hours) Vital Signs Temp Pulse Resp BP Pulse Ox 10/28/18 15:02 36.8 C 87 18 120/85 99 10/28/18 10:58 93 H 18 129/67 93 10/28/18 07:39 36.8 C 87 18 143/85 H 98 10/28/18 05:52 36.9 C 82 14 118/75 97 Laboratory Results Short CBC 10/28/18 Range/Units 09:46 WBC 3.06 L (4.8-10.8) K/uL Hgb 9.4 L (12.0-16.0) g/dL Hct 31.1 L (37-47) % Plt Count 86 L (130-400) K/uL BMP 10/28/18 09:46 Sodium 142 Potassium 3.8 Chloride 114 H Carbon Dioxide 21 BUN 13 D Creatinine 0.51 L Glucose 93 Calcium 8.8
[2018-10-28] MEDS ORDERED: ACETAMINOPHEN 325 MG TAB PO PRN (19:21)
[2018-10-28] MEDS: GABAPENTIN 300 MG CAP PO SCH (20:14)
[2018-10-28] MEDS: MAGNESIUM OXIDE 400 MG TAB PO SCH (20:55)
[2018-10-29] MEDS: chlordiazePOXIDE HCl 25 MG CAP PO SCH ×2 (00:52→08:38)
[2018-10-29 06:14] LABS: Mean Corpuscular Hgb Conc 30.8 g/dL (32-36)
[2018-10-29 06:18] LABS: Hematocrit (blood only) 27.6 % (37-47); Hemoglobin 8.5 g/dL (12.0-16.0); Mean Corpuscular Hemoglobin 23.7 pg (25-34); Mean Corpuscular Volume 76.9 fL (80-100); RDW Coefficient of Variation 22.7 % (11.5-14.5); RDW Standard Deviation 64.1 fL (36.4-46.3); Red Blood Count 3.59 M/uL (4.2-5.4); White Blood Count 2.14 K/uL (4.8-10.8)
[2018-10-29 06:43] LABS: BUN Creatinine Ratio 30.1 (10-20); Calcium 8.6 mg/dl (8.5-10.1); Creatinine Clr Calc Pharmacy 118.2 ml/min; Est GFR (African American) 129.8; Potassium 3.6 mmol/L (3.5-5.1)
[2018-10-29 06:52] LABS: Platelet Count 79 K/uL (130-400); Platelet Estimate Decreased (Normal)
[2018-10-29] MEDS: PANCREAZE (LIPASE 10,500U) CAP PO SCH ×2 (08:38→12:30)
[2018-10-29] MEDS: LACTOBACILLUS ACIDOPHILUS (FLORANEX) TAB PO SCH ×2 (08:38→12:30)
[2018-10-29] MEDS: AMOXICILLIN 500 MG CAP PO SCH ×2 (08:39→12:31)
[2018-10-29] MEDS: FOLIC ACID 1 MG TAB PO SCH (08:39)
[2018-10-29] MEDS: CALCIUM 600MG + VIT D 400 IU TAB PO SCH (08:39)
[2018-10-29] MEDS: GABAPENTIN 300 MG CAP PO SCH ×2 (08:39→12:31)
[2018-10-29] MEDS: CITALOPRAM 20 MG TAB PO SCH (08:39)
[2018-10-29] MEDS: PANTOprazole 40 MG TAB PO SCH (08:40)
[2018-10-29] MEDS: THIAMINE HCL 100 MG TAB PO SCH (08:40)
[2018-10-29] MEDS: LOPERAMIDE HCL 2 MG CAP PO PRN (08:41)
[2018-10-29] MEDS: LEVOFLOXACIN/D5W 750 MG/150 ML BAG IV SCH (10:32)
--- NOTE | 2018-10-29 12:29 | Hospitalist Progress Note ---
Date of Service October 29, 2018 Assessment & Plan (1) Altered mental status: Patient is a 53 yr female with H/O anxiety, alcoholic cirrhosis, portal hypertension, esophageal varices, thrombocytopenia, h/o seizure h/o pancreatitis presented to ER for altered mental status. Limited history obtained from patient secondary to altered mental status. 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 difficile; negative Imodium as needed Improving Hypokalemia Due to GI losses Monitor and replace electrolytes as needed Resolved (3) Alcoholic cirrhosis: Monitor LFTs Normal ammonia levels Chronic Pain H/O Trauma Given history of alcohol use disorder, substance use Avoid narcotics as able Resume gabapentin (4) Alcohol use: Management as above (5) Chronic anemia: (6) Thrombocytopenia: Chronic anemia, chronic thrombocytopenia likely secondary to alcohol abuse, cirrhosis Monitor CBC DVT Px: SCDs Re: Anemia, Thrombocytopenia CODE STATUS full code Disposition Plan to discharge home today Subjective Patient is seen and examined at bedside States feeling much better today diarrhea improving Has chronic left-sided pain Denies any chest pain, SOB, dysuria Review of Systems Review of Systems: All systems reviewed & are unremarkable except as noted in HPI & below Physical Exam Physical Exam: Physical Exam: Vitals signs as noted above General Appearance: Chronically ill-appearing, no distress Head: normocephalic, Atraumatic Eyes: normal inspection, EOMI Neck: supple, Trachea midline Respiratory/Chest: Normal breath sounds, CTA Cardiovascular: S1, S2, No murmur Abdomen/GI:Soft, Non tender, +Scars, Pain pump, Bowel sounds present Extremities/Musculoskelatal:normal inspection, no edema Neurologic/Psych:grossly no focal neurological deficits Skin: normal color, warm Results & Data Vital Signs (Past 12 Hours) Vital Signs Temp Pulse Pulse Resp BP BP Pulse Ox 10/29/18 11:51 36.7 C 80 74 17 119/78 165/83 H 98 10/29/18 07:18 36.7 C 74 17 119/78 98 Laboratory Results Short CBC 10/29/18 Range/Units 05:40 WBC 2.14 L (4.8-10.8) K/uL Hgb 8.5 L (12.0-16.0) g/dL Hct 27.6 L (37-47) % Plt Count 79 L (130-400) K/uL BMP 10/29/18 05:40 Sodium 142 Potassium 3.6 Chloride 112 H Carbon Dioxide 22 BUN 14 Creatinine 0.47 L Glucose 88 Calcium 8.6
--- NOTE | 2018-10-29 12:46 | Discharge Summary ---
Date of Service October 29, 2018 Admission HPI Per Admitting Provider Pt is 53 y/o F with PMH anxiety, alcoholic cirrhosis, portal hypertension, esophageal varices, thrombocytopenia, h/o seizure h/o pancreatitis presented to ER for altered mental status. Limited history obtained from patient secondary to altered mental status. ER staff report patient brought to ER and was minimally responsive initially. During ER course patient became awake but still confused. Patient is pulling off manager lpn, has pulled out IVs and has been noted to be wandering around the ER. Patient states she is unsure why she is at the ER. She wonders if she may have had a seizure. Unsure if pt had any bowel/bladder incontinence or known seizure activity. Pt unsure when last seizure was and denies hx alcohol withdrawal seizure. Currently patient reports feels restless and is denying any other current complaints. Of note a telephone call was made to patient's PCP office this morning reporting that patient has been drinking alcohol again and slid off the bed this morning and was difficult to arouse. ER reports that pt's son was with pt in ER and states pt is not acting like herself. ER report pt's son had reported pt's oxycodone bottle had less pills in than what she was prescribed. Unsure if pt took more than prescribed. Unknown if pt took any other medications or drugs. Pt admits to marijuana use and states she gets it from a dispensary. In ER urine tox +marijuana, negative for other agents. Pt states drinks vodka "off and on" and states her last drink was 2 days ago, however her ETOH level in ER is 116. Pt reports hx pain pump placed to her abdomen and in past had followed with [facility]. She states it has been "a long time" since this was used. Pt denies current CROWELL, dizziness, CP, SOB, N/V/D, abdominal pain. Reports chronic left leg pain from prior injury and surgery. Pt c/o itching and feeling restless. Patient with history of hospitalization 09/21/2018-10/06/2018 for altered mental status, metabolic acidosis, TYRONE, pancreatitis, rhabdomyolysis, UTI with culture positive Klebsiella and ESBL. Patient was discharged to rehab. Admission Exam Per Admitting Provider General: Chronic ill appearing, very restless, pulling at manager lpn and IV, moderately developed moderately nourished Head: normocephalic, atraumatic Eyes: PERRL, EOM's appear intact with limited pt cooperation, conjunctiva non- injected, anicteric ENT: normal inspection external ears, nose, mucous membranes moist Neck: supple, trachea midline Lungs: clear, no respiratory distress, no wheezing/rhonchi/rales CV: RRR, no murmur, no pretibial edema Abd: normal BS, soft, +surgical scars, +palpable rectangular mass to right abdomen, non-tender to palpation Ext: no cyanosis, no calf tenderness, left knee with surgical scar with palpable mass anterior knee that is nontender to palpation, left pedal push weaker than right Neuro: Alert, oriented to person and place, restless, no focal deficits noted Skin: warm, dry, ecchymosis to dorsal hand, left anterior knee with Principal Diagnosis Urinary tract infection Alcohol use disorder Metabolic encephalopathy Discharge Data Allergies Allergy/AdvReac Type Severity Reaction Status Date / Time diphenhydramine Allergy Severe seizures/it Verified 10/24/18 11:50 mya/tremo rs bupropion Allergy Intermediate Palpitation Verified 10/24/18 11:50 s clarithromycin Allergy Intermediate HIVES Verified 10/24/18 11:50 aspirin Allergy Mild hives/ringing Verified 10/24/18 11:50 of ears oxaprozin Allergy Mild nausea/vomi Verified 10/24/18 11:50 ting salicylates Allergy Mild ringing in Verified 10/24/18 11:50 ears/hives tramadol Allergy Mild hives/upset Verified 10/24/18 11:50 stomach Consultations 10/24/18 16:52 ED Decision to Admit Stat 10/24/18 19:38 Consult Case Management - Discharge Planning Routine 10/27/18 08:29 Consult Infectious Diseases Routine Procedures Performed CT Head: No acute intracranial findings CXR: 1. Volume overload with congestive change and early central predominant pulmonary edema suspected. 2. Low lung volumes as on prior exam. Ordered Studies 10/24/18 22:26 CT head/brain wo con Stat Hospital Course (1) Altered mental status: Patient is a 53 yr female with H/O anxiety, alcoholic cirrhosis, portal hypertension, esophageal varices, thrombocytopenia, h/o seizure h/o pancreatitis presented to ER for altered mental status. Limited history obtained from patient secondary to altered mental status. Metabolic Encephalopathy: Resolved Likely due to UTI, acute alcohol intoxication, other substance use CT head: No acute intracranial findings Toxicology Screen: Positive for Marijuana ETOH level: 116 Fe[employer] Tobacco to quit drinking Continue Alcohol withdrawal protocol Continue thiamine, folic acid Abx for UTI Mental status back to baseline Monitor Avoid narcotics as able (2) UTI (urinary tract infection): H/O recent UTI in 09/2018 with urine culture positive for Klebsiella, ESBL Sepsis/UTI Lactate levels normalized Blood Cx: No growth to date Urine Cx: Enterococcus faecalis, yvukx-lpxd-ysuhhzeiw organism Ertapenem Transitioned to Zosyn Day #2>> transition to Levaquin, amoxicillin Day#3/5 Appreciate ID input Diarrhea Likely due to antibiotics Stool for C. difficile; negative Imodium as needed Improving Hypokalemia Due to GI losses Monitor and replace electrolytes as needed Resolved (3) Alcoholic cirrhosis: Monitor LFTs Normal ammonia levels Chronic Pain H/O Trauma Given history of alcohol use disorder, substance use Avoid narcotics as able Resume gabapentin (4) Alcohol use: Management as above (5) Chronic anemia: (6) Thrombocytopenia: Chronic anemia, chronic thrombocytopenia likely secondary to alcohol abuse, cirrhosis Monitor CBC DVT Px: SCDs Re: Anemia, Thrombocytopenia CODE STATUS full code Disposition Plan to discharge home today Total Time Total Time Spent Total Time Spent (In Minutes): 34 minutes Total Time Includes: Examination of the Patient, Discharge Planning, Medication Reconciliation, Communication With Other Providers and Other Discharge Plan Discharge Items Patient Disposition: Home - Self-Care Reason For Visit: AMS Discharge Diagnosis: Urinary tract infection Alcohol use disorder Metabolic encephalopathy Activity: Resume your previous activity Exercise/Sports: Gradually increase as tolerated Non-emergency contact: Primary Care Provider Call non-emergency contact if: you have any medication questions, your symptoms worsen, your pain is not controlled, your pain is worsening, your pain is unusual for you, your pain is concerning for you and you have a fever Follow-up/Referrals: Pita Borges MD [Primary Care Provider] - Diet: Heart Healthy Addtl Attending Provider Instructions: Follow-up with your primary care physician Dr. Pita Wolfe on October 31, 2018 at 10:45 AM Complete the antibiotic course as prescribed Quit drinking alcohol as advised Seek immediate medical attention if your symptoms reoccur or worsen Pending Studies at Discharge: Yes Studies:: Urine culture Stand-Alone Forms: My [facility] Medications and DC Order Prescriptions: New amoxicillin 500 mg Capsule 500 mg PO TID Qty: 8 RF: 0 loperamide 2 mg Capsule 2 mg PO UD MDD 16 mg/day PRN (Reason: loose stool) Qty: 60 RF: 0 Lactobacillus acidoph-L.bulgar [Floranex] 1 million cell Tablet 4 tab PO QIDM 7 Days Qty: 28 RF: 0 levofloxacin 750 mg tablet 750 mg PO DAILY 2 Days Qty: 2 RF: 0 Continued citalopram [Celexa] 10 mg Tablet 10 mg PO QAM RF: 0 gabapentin 300 mg Capsule 300 mg PO TID RF: 0 hydroxyzine HCl 25 mg Tablet 25 - 50 mg PO BID PRN (Reason: Anxiety) RF: 0 multivitamin with minerals [Hair,Skin and Nails] Tablet 3 tab PO QAM RF: 0 Centrum Silver 0.4-300-250 mg-mcg-mcg Tablet 1 tab PO QAM RF: 0 calcium carbonate-vitamin D3 [Calcium 500 With D] 500 mg(1,250mg) -400 unit Tablet 1 tab PO BID RF: 0 sucralfate [Carafate] 1 gram tablet 1 g PO ACHS RF: 0 folic acid 1 mg tablet 1 mg PO DAILY RF: 0 thiamine HCl (vitamin B1) [Vitamin B-1] 100 mg Tablet 100 mg PO QAM Qty: 30 RF: 0 magnesium oxide 400 mg (241.3 mg magnesium) Tablet 800 mg PO HS Qty: 15 RF: 0 pantoprazole 40 mg Tablet,Delayed Release (Dr/Ec) 40 mg PO BID Qty: 60 RF: 0 Creon 36,000-114,000- 180,000 unit Capsule,Delayed Release(Dr/Ec) 1 cap PO TIDM Qty: 90 RF: 0 Discharge Orders: Discharge Order (Routine); Ordered 10/29/18 Ordered By: Messi Garcia Admission Data Admit Date/Time: 10/24/18 18:22 Attending Provider: Messi Garcia Admit Provider: Jeannette Simon I. Primary Care Provider: Pita Borges Other Providers: Jeannette Simon I. ; Divya Newman Other Interventions: Discharge Summary Assessment (RN) Last Done: 10/29/18 11:51 DC Date/Time DO NOT enter until pt leaves facility: 10/29/18 13:30
--- NOTE | 2018-11-03 08:14 | Coding Query ---
CODING QUERY To promote full compliance with coding requirements relating to patient care, provider participation is requested in all cases of label coder uncertainty. Please assist us with the question(s) below: Coding Question(s): There is possible Alcohol Withdrawal documented on the H&P and there is documentation in the record of Alcohol Abuse, Alcohol Use Disorder and Alcoholic/Alcoholism. Please clarify below, in your clinical opinion. ( x) Alcoholism/Alcoholic/Alcohol Dependence (x ) with possible alcohol withdrawal ( ) without alcohol withdrawal ( ) Alcohol Abuse without Alcohol Withdrawal ( ) Alcohol Use Disorder ( ) Mild Alcohol Use Disorder without alcohol withdrawal ( ) Moderate or Severe Alcohol Use Disorder ( ) with possible alcohol withdrawal ( ) without alcohol withdrawal Physician's Response(s): Thank you Katherin Baldwin Principal Diagnosis: "that condition established after study, to be chiefly responsible for occasioning the admission of the patient to the hospital for care." Co-Existing Principal Diagnosis: "when two or more diagnoses equally meet the criteria for principal diagnosis as determined by the circumstances of admission, diagnostic work up, and/or therapy provided, and the Alphabetic Index, Tabular List, or another coding guideline does not provide sequencing direction, any one of the diagnoses may be sequenced first." "When the physician has documented what appears to be a current diagnosis in the body of the record, but has not included the diagnosis in the final diagnostic statement, the physician should be asked whether the diagnosis should be added." (Source [facility] 2 QTR90. p3-4) FAUZIA
--- NOTE | 2018-11-03 08:16 | Coding Query ---
To promote full compliance with coding requirements relating to patient care, provider participation is requested in all cases of neurology professor uncertainty. Please assist us with the question(s) below: Coding Question(s): The diagnosis below was documented in the H&P then subsequently fell off all further documentation. Please indicate if it is still a possible diagnosis or ruled out. Physician's Response(s): POSSIBLE SEPSIS ( x ) Diagnosed and POA ( ) Diagnosed and not POA ( ) Ruled out ( ) Other (please specify) MTDD
== END 2018-10-29 13:30 | disposition home health service (06) | DRG 871 ==
LOC: ED 10:27 → 2S 18:22 → SUATTDRO 18:22 → 2S 19:07 → 4W 10-28 10:02
DX: G93.41 Metabolic encephalopathy; F10.239 Alcohol dependence with withdrawal, unspecified; Z88.8 Allergy status to other drugs, medicaments and biological substances; Z88.1 Allergy status to other antibiotic agents; F41.9 Anxiety disorder, unspecified; G35 Multiple sclerosis; D63.8 Anemia in other chronic diseases classified elsewhere; G89.29 Other chronic pain; F10.229 Alcohol dependence with intoxication, unspecified; I10 Essential (primary) hypertension; A41.9 Sepsis, unspecified organism; T36.95XA Adverse effect of unspecified systemic antibiotic, initial encounter; K76.6 Portal hypertension; Z79.899 Other long term (current) drug therapy; Y90.9 Presence of alcohol in blood, level not specified; I85.10 Secondary esophageal varices without bleeding; E87.6 Hypokalemia; K70.30 Alcoholic cirrhosis of liver without ascites; Z88.6 Allergy status to analgesic agent; D69.59 Other secondary thrombocytopenia; R56.9 Unspecified convulsions; B96.1 Klebsiella pneumoniae [K. pneumoniae] as the cause of diseases classified elsewhere; Z16.24 Resistance to multiple antibiotics; M79.7 Fibromyalgia; N39.0 Urinary tract infection, site not specified; B95.2 Enterococcus as the cause of diseases classified elsewhere; Z88.5 Allergy status to narcotic agent; K52.1 Toxic gastroenteritis and colitis

== ENCOUNTER 2018-11-27 13:40 | Inpatient (IN) ==
[2018-11-27] MEDS ORDERED: ACETAMINOPHEN 1,000 MG/100 ML VIAL IV STA (14:12)
[2018-11-27] MEDS ORDERED: SODIUM CHLORIDE 0.9% 1000ML 1,000 ML IV ONE (14:12)
[2018-11-27] MEDS ORDERED: fentaNYL citrate 100 MCG/2 ML VIAL IV STA (14:18)
--- NOTE | 2018-11-27 14:37 | Emergency Department Note ---
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 Admitted As Inpatient Discharge Instructions Interventions: ED Discharge Assessment Last Done: 11/27/18 19:21 Discharge Problem: Alcohol dependence Qualifiers: Substance use status: unspecified alcohol-induced disorder Qualified Code(s): F10.29 - Alcohol dependence with unspecified alcohol-induced disorder The scribe's documentation has been prepared under my direction and personally reviewed by me in its entirety. I confirm that the note above accurately reflects all work, treatment, procedures, and medical decision making performed by me.
[2018-11-27 15:06] LABS: INR 1.2 (0.9-1.1); Prothrombin Time 11.7 Seconds (9.0-12.0)
[2018-11-27 15:10] LABS: Alanine Aminotransferase 28 U/L (12-78); Albumin Level 3.7 gm/dl (3.4-5.0); Aspartate Aminotransferase 54 U/L (15-37); BUN Creatinine Ratio 20.7 (10-20); Bilirubin Direct 0.4 mg/dl (0-0.2); Blood Urea Nitrogen 12 mg/dl (7-18); Calcium 8.2 mg/dl (8.5-10.1); Carbon Dioxide 22 mmol/L (21-32); Chloride 104 mmol/L (98-107); Est GFR (African American) 121.1; Est GFR (Non-African American) 104.5; Glucose 124 mg/dl (70-99); Lipase 71 U/L (73-393); Magnesium 1.9 mg/dl (1.8-2.4); Potassium 3.2 mmol/L (3.5-5.1); Sodium 138 mmol/L (136-145)
[2018-11-27 15:14] LABS: Albumin Globulin Ratio 0.9 (0.9-2); Alkaline Phosphatase 193 U/L (45-117); Bilirubin,Total 0.8 mg/dl (0.2-1); Creatine Kinase 74 U/L (26-192); Globulin 4.1 gm/dl (2.5-4.0); Phosphorus 2.4 mg/dl (2.5-4.9); Total Protein 7.8 gm/dl (6.4-8.2); Troponin I < 0.015 ng/ml (0-0.045)
[2018-11-27] MEDS ORDERED: MULTI-VITAMIN INFUSION 10 ML, THIAMINE HCL 100 MG, FOLIC ACID 1 MG in SODIUM CHLORIDE 0... IV ONE (15:31)
[2018-11-27] MEDS ORDERED: IOVERSOL 100ml IV PRN (15:31)
[2018-11-27] MEDS ORDERED: MAGNESIUM SULFATE / D5W 1 GM/100 ML BAG IV ONE (15:31)
[2018-11-27 15:48] LABS: Hematocrit (blood only) 33.6 % (37-47); Hemoglobin 10.4 g/dL (12.0-16.0); Mean Corpuscular Hemoglobin 22.1 pg (25-34); Mean Corpuscular Volume 71.3 fL (80-100); RDW Standard Deviation 52.4 fL (36.4-46.3); Red Blood Count 4.71 M/uL (4.2-5.4); White Blood Count 3.23 K/uL (4.8-10.8)
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
--- NOTE | 2018-11-27 15:50 | CT Scan Report ---
CT cervical spine wo con CLINICAL HISTORY: 53 years-old Female presenting with pain fall. TECHNIQUE: Multidetector CT of the cervical spine was performed without the use of intravenous contra st. IV contrast: None. One or more dose lowering techniques were used consistent with the principles of ALARA (as low as reasonably achievable), including automatic exposure control, mA or kV adjustment to individual patient size, and/or use of iterative reconstruction. COMPARISON: 09/21/2018. CT DOSE (mGy.cm): The estimated cumulative dose is 1550.04. FINDINGS: Textbook Associate topogram: Implanted medical receptionist projects over the right mid abdomen. Surgical clips in the u pper abdomen. Left femoral intramedullary nail fixation. Normal cervical lordosis. Chronic anterior vertebral body height loss of C7 unchanged from prior. Rem aining vertebral bodies demonstrate normal height and alignment. Intervertebral disc heights preserve d. No significant disc osteophyte complexes though disc bulge is suspected at C5-6 and to a lesser ex tent at C6-7. No osseous neural foraminal narrowing. No acute fracture or subluxation. Visualized por tion of the skull base intact. 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 Paraspinal soft tissues within normal limits. Lung apices clear. IMPRESSION: 1. No acute osseous injury of the cervical spine. 2. Unchanged appearance of C7 consistent with a chronic compression deformity. Electronically signed by: Luis A Cali M.D. 11/27/2018 3:49 PM
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
[2018-11-27 15:59] LABS: Platelet Count 130 K/uL (130-400)
[2018-11-27 16:05] LABS: Anisocytosis Present; Basophils # (auto) 0.03 K/uL (0-0.2); Basophils % (auto) 0.9 %; Lymphocytes # (auto) 0.83 K/uL (1.2-3.4); Lymphocytes % (auto) 25.7 %; Monocytes # (auto) 0.15 K/uL (0.11-0.59); Monocytes % (auto) 4.6 %; Neutrophils # (auto) 2.22 K/uL (1.4-6.5); Neutrophils % (auto) 68.8 %; Platelet Estimate Normal (Normal); Poikilocytosis Present; Schistocytes Occasional
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
[2018-11-27] MEDS ORDERED: POT PHOSPHATE MONOBASIC W/ SOD TAB PO STA (16:16)
[2018-11-27] MEDS ORDERED: POTASSIUM CHLORIDE 20 MEQ TABCR PO STA (16:16)
--- NOTE | 2018-11-27 16:24 | XRay Report ---
XR chest 1V portable CLINICAL HISTORY: Atypical chest pain COMPARISON STUDY: No previous studies for comparison. FINDINGS: The cardiac and mediastinal contours remain stable. There is no failure. There is no focal pulmonary consolidation. There are no pleural effusions. There is right-sided colonic interposition. No pneumothorax is visualized.[ IMPRESSION: No active disease in the chest. Electronically signed by: Yahir Valencia M.D. 11/27/2018 4:23 PM
--- NOTE | 2018-11-27 16:25 | XRay Report ---
XR femur LT 2V routine CLINICAL HISTORY: 53 years-old Female presenting with pain fall. TECHNIQUE: Frontal and lateral views of the left femur were obtained. COMPARISON: None. FINDINGS: Intramedullary nail fixation of the left femoral neck and proximal metadiaphysis with the distal inte rlocking screw. Buttress plate and screw fixation of the medial tibial plateau partially visualized. Underlying severe osteopenia. The left hip joint and left knee joint are congruent. Joint space loss at the hip may be present. No hardware breakage or fracture. No malalignment. No advanced degenerativ e change. No radiographic soft tissue abnormality. IMPRESSION: 1. No acute osseous injury. 2. Internal fixation of the proximal left femur and proximal left tibia. No hardware breakage. 3. Osteopenia. Electronically signed by: Luis A Cali M.D. 11/27/2018 4:24 PM
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
[2018-11-27] MEDS ORDERED: LORazepam 1 MG TAB PO PRN (20:11)
[2018-11-27] MEDS ORDERED: POLYETHYLENE (MIRALAX) 17 GM PACK PO PRN (20:11)
[2018-11-27] MEDS ORDERED: SODIUM CHLORIDE 0.9% 1000ML 1,000 ML IV SCH (20:21)
[2018-11-27] MEDS: KETOROLAC TROMETHAMINE 15 MG/ML VIAL IV PRN (20:50)
[2018-11-27 20:51] LABS: Appearance Urine Clear (Clear); Bacteria Urine Automated 4+ (Negative); Bilirubin Urine Negative (Negative); Blood Urine Negative (Negative); Color Urine Yellow; Glucose Urine UA Negative (Negative); Ketones Urine Trace (Negative); Leukocyte Esterase Urine 1+ (Negative); Nitrite Urine Negative (Negative); Protein Urine Trace (Negative); Specific Gravity Urine > 1.045 (1.000-1.030); Urobilinogen Urine Negative (Negative); WBC Urine Automated >30 /hpf (0-5); pH Urine 5.5 (4.5-7.5)
[2018-11-27] MEDS: ONDANSETRON INJ 2 MG/ML 2 ML VIAL IV PRN (20:58)
[2018-11-27] MEDS ORDERED: LIDOCAINE 5% 1 PATCH TD SCH (21:00)
[2018-11-27] MEDS ORDERED: INFLUENZA ADMINISTRATION CHARGE ONE (21:15)
[2018-11-27] MEDS: SUCRALFATE 1 GM TAB PO SCH ×2 (21:15→21:26)
[2018-11-27] MEDS: CALCIUM 600MG + VIT D 400 IU TAB PO SCH ×2 (21:15→21:26)
[2018-11-27] MEDS: GABAPENTIN 300 MG CAP PO SCH (21:15)
[2018-11-27] MEDS: PANTOprazole 40 MG TAB PO SCH ×2 (21:15→21:27)
[2018-11-27] MEDS: MAGNESIUM OXIDE 400 MG TAB PO SCH ×2 (21:15→21:27)
[2018-11-27] MEDS ORDERED: INFLUENZA VIRUS QUAD VACCINE 0.5 ML SYR IM ONE (21:15)
[2018-11-27] MEDS ORDERED: ACETAMINOPHEN 325 MG TAB PO PRN (21:26)
[2018-11-27] MEDS: LOPERAMIDE HCL 2 MG CAP PO PRN (21:49)
[2018-11-27] MEDS: PROMETHAZINE HCL 12.5 MG in SODIUM CHLORIDE 0.9% 50 ML IV PRN (21:50)
[2018-11-27] MEDS: OXYCODONE HCL IR 5 MG TAB (IMMEDIATE RELEASE) PO PRN (22:57)
[2018-11-28] MEDS: ONDANSETRON INJ 2 MG/ML 2 ML VIAL IV PRN ×2 (03:08→15:25)
[2018-11-28] MEDS: OXYCODONE HCL IR 5 MG TAB (IMMEDIATE RELEASE) PO PRN ×6 (03:08→23:50)
[2018-11-28] MEDS: PROMETHAZINE HCL 12.5 MG in SODIUM CHLORIDE 0.9% 50 ML IV PRN (06:20)
[2018-11-28 06:52] LABS: Mean Corpuscular Hgb Conc 31.2 g/dL (32-36)
[2018-11-28 07:03] LABS: INR 1.2 (0.9-1.1); Prothrombin Time 12.1 Seconds (9.0-12.0)
[2018-11-28 07:26] LABS: Hematocrit (blood only) 28.2 % (37-47); Hemoglobin 8.8 g/dL (12.0-16.0); Mean Corpuscular Hemoglobin 22.5 pg (25-34); Mean Corpuscular Volume 72.1 fL (80-100); Platelet Count 60 K/uL (130-400); Platelet Estimate Decreased (Normal); RDW Standard Deviation 52.6 fL (36.4-46.3); Red Blood Count 3.91 M/uL (4.2-5.4); White Blood Count 2.63 K/uL (4.8-10.8)
[2018-11-28 07:32] LABS: BUN Creatinine Ratio 25.4 (10-20); Calcium 7.9 mg/dl (8.5-10.1); Creatinine Clr Calc Pharmacy 125.8 ml/min; Est GFR (African American) 130.7; Est GFR (Non-African American) 112.8; Potassium 3.8 mmol/L (3.5-5.1)
[2018-11-28] MEDS: LIDOCAINE 5% 1 PATCH TD SCH (07:32)
[2018-11-28] MEDS: CITALOPRAM 20 MG TAB PO SCH (07:33)
[2018-11-28] MEDS: GABAPENTIN 300 MG CAP PO SCH ×3 (07:33→20:58)
[2018-11-28] MEDS: PANTOprazole 40 MG TAB PO SCH ×2 (07:33→20:59)
[2018-11-28] MEDS: SUCRALFATE 1 GM TAB PO SCH ×4 (07:33→20:58)
[2018-11-28] MEDS: CALCIUM 600MG + VIT D 400 IU TAB PO SCH ×2 (07:33→20:55)
[2018-11-28] MEDS: LACTOBACILLUS ACIDOPHILUS (FLORANEX) TAB PO SCH (07:34)
[2018-11-28] MEDS: PANCREAZE (LIPASE 10,500U) CAP PO SCH ×3 (07:34→16:11)
[2018-11-28] MEDS: FOLIC ACID 1 MG TAB PO SCH (07:34)
[2018-11-28] MEDS: THIAMINE HCL 100 MG TAB PO SCH (07:35)
[2018-11-28] MEDS: MULTIVITAMIN TAB PO SCH (07:35)
[2018-11-28] MEDS: levoFLOXacin 500 MG TAB PO SCH (11:12)
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
[2018-11-28] MEDS: LOPERAMIDE HCL 2 MG CAP PO PRN (18:22)
[2018-11-28] MEDS: MAGNESIUM OXIDE 400 MG TAB PO SCH (20:57)
[2018-11-29] MEDS: KETOROLAC TROMETHAMINE 15 MG/ML VIAL IV PRN ×2 (02:26→15:29)
[2018-11-29] MEDS: OXYCODONE HCL IR 5 MG TAB (IMMEDIATE RELEASE) PO PRN ×5 (04:04→23:05)
[2018-11-29 06:09] LABS: Mean Corpuscular Hgb Conc 30.4 g/dL (32-36)
[2018-11-29 06:16] LABS: Hematocrit (blood only) 29.6 % (37-47); Mean Corpuscular Hemoglobin 22.3 pg (25-34); Mean Corpuscular Volume 73.4 fL (80-100); RDW Standard Deviation 53.7 fL (36.4-46.3); Red Blood Count 4.03 M/uL (4.2-5.4); White Blood Count 2.48 K/uL (4.8-10.8)
[2018-11-29 06:45] LABS: Calcium 8.2 mg/dl (8.5-10.1); Creatinine Clr Calc Pharmacy 103.3 ml/min; Est GFR (African American) 122.5; Est GFR (Non-African American) 105.7; Platelet Count 50 K/uL (130-400); Potassium 3.5 mmol/L (3.5-5.1)
[2018-11-29 06:46] LABS: Phosphorus 2.9 mg/dl (2.5-4.9)
[2018-11-29 06:51] LABS: Platelet Estimate Decreased (Normal)
[2018-11-29] MEDS ORDERED: POTASSIUM CHLORIDE 20 MEQ TABCR PO STA (08:08)
[2018-11-29] MEDS: LIDOCAINE 5% 1 PATCH TD SCH (08:20)
[2018-11-29] MEDS: FOLIC ACID 1 MG TAB PO SCH (08:20)
[2018-11-29] MEDS: LACTOBACILLUS ACIDOPHILUS (FLORANEX) TAB PO SCH (08:20)
[2018-11-29] MEDS: CALCIUM 600MG + VIT D 400 IU TAB PO SCH ×2 (08:20→20:08)
[2018-11-29] MEDS: MULTIVITAMIN TAB PO SCH (08:20)
[2018-11-29] MEDS: CITALOPRAM 20 MG TAB PO SCH (08:20)
[2018-11-29] MEDS: PANCREAZE (LIPASE 10,500U) CAP PO SCH ×3 (08:20→17:23)
[2018-11-29] MEDS: GABAPENTIN 300 MG CAP PO SCH ×3 (08:20→20:07)
[2018-11-29] MEDS: SUCRALFATE 1 GM TAB PO SCH ×4 (08:20→20:06)
[2018-11-29] MEDS: THIAMINE HCL 100 MG TAB PO SCH (08:20)
[2018-11-29] MEDS: PANTOprazole 40 MG TAB PO SCH ×2 (08:20→20:07)
[2018-11-29] MEDS: ONDANSETRON INJ 2 MG/ML 2 ML VIAL IV PRN ×2 (09:09→21:32)
[2018-11-29] MEDS: levoFLOXacin 500 MG TAB PO SCH (11:22)
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
[2018-11-29] MEDS ORDERED: ERGOCALCIFEROL 50,000 UNITS CAP PO STA (15:03)
[2018-11-29] MEDS: ZOLPIDEM TARTRATE 5 MG TAB PO PRN (20:49)
[2018-11-30] MEDS: OXYCODONE HCL IR 5 MG TAB (IMMEDIATE RELEASE) PO PRN ×3 (05:20→22:04)
[2018-11-30 06:40] LABS: BUN Creatinine Ratio 33.2 (10-20); Calcium 7.9 mg/dl (8.5-10.1); Creatinine Clr Calc Pharmacy 134.6 ml/min; Est GFR (African American) 133.6; Est GFR (Non-African American) 115.3; Magnesium 1.6 mg/dl (1.8-2.4); Potassium 3.7 mmol/L (3.5-5.1)
[2018-11-30] MEDS: KETOROLAC TROMETHAMINE 15 MG/ML VIAL IV PRN (09:39)
[2018-11-30] MEDS: ONDANSETRON INJ 2 MG/ML 2 ML VIAL IV PRN (09:40)
[2018-11-30] MEDS: cefTRIAXone SODIUM 1,000 MG in DEXTROSE 5% 50 ML IV SCH (09:42)
[2018-11-30] MEDS: SUCRALFATE 1 GM TAB PO SCH ×4 (09:47→20:27)
[2018-11-30] MEDS: CALCIUM 600MG + VIT D 400 IU TAB PO SCH ×2 (09:48→20:23)
[2018-11-30] MEDS: CITALOPRAM 20 MG TAB PO SCH (09:48)
[2018-11-30] MEDS: PANCREAZE (LIPASE 10,500U) CAP PO SCH ×3 (09:48→16:44)
[2018-11-30] MEDS: LACTOBACILLUS ACIDOPHILUS (FLORANEX) TAB PO SCH (09:49)
[2018-11-30] MEDS: FOLIC ACID 1 MG TAB PO SCH (09:49)
[2018-11-30] MEDS: MULTIVITAMIN TAB PO SCH (09:50)
[2018-11-30] MEDS: LIDOCAINE 5% 1 PATCH TD SCH (09:50)
[2018-11-30] MEDS: GABAPENTIN 300 MG CAP PO SCH ×3 (09:51→20:23)
[2018-11-30] MEDS: THIAMINE HCL 100 MG TAB PO SCH (09:51)
[2018-11-30] MEDS: PANTOprazole 40 MG TAB PO SCH ×2 (09:51→20:27)
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
[2018-11-30] MEDS: HYDROmorphone INJ 0.5 MG/0.5 ML SYR IV PRN ×2 (11:56→20:22)
[2018-11-30] MEDS: MAGNESIUM OXIDE 400 MG TAB PO SCH ×2 (12:35→20:26)
[2018-11-30] MEDS: MAGNESIUM SULFATE / D5W 1 GM/100 ML BAG IV SCH ×2 (12:37→14:53)
[2018-11-30] MEDS: ZOLPIDEM TARTRATE 5 MG TAB PO PRN (21:52)
[2018-11-30] MEDS: LOPERAMIDE HCL 2 MG CAP PO PRN (22:04)
[2018-12-01] MEDS: HYDROmorphone INJ 0.5 MG/0.5 ML SYR IV PRN ×3 (05:09→19:31)
[2018-12-01 06:41] LABS: BUN Creatinine Ratio 31.5 (10-20); Creatinine Clr Calc Pharmacy 137.8 ml/min; Est GFR (African American) 134.7; Est GFR (Non-African American) 116.2; Magnesium 1.9 mg/dl (1.8-2.4); Phosphorus 3.4 mg/dl (2.5-4.9); Potassium 3.7 mmol/L (3.5-5.1)
[2018-12-01] MEDS ORDERED: MAGNESIUM SULFATE / D5W 1 GM/100 ML BAG IV ONE (08:00)
[2018-12-01] MEDS: OXYCODONE HCL IR 5 MG TAB (IMMEDIATE RELEASE) PO PRN ×3 (08:04→22:08)
[2018-12-01] MEDS: SUCRALFATE 1 GM TAB PO SCH ×4 (08:05→21:02)
[2018-12-01] MEDS: PANCREAZE (LIPASE 10,500U) CAP PO SCH ×3 (08:05→16:24)
[2018-12-01] MEDS: CALCIUM 600MG + VIT D 400 IU TAB PO SCH ×2 (08:05→21:05)
[2018-12-01] MEDS: CITALOPRAM 20 MG TAB PO SCH (08:06)
[2018-12-01] MEDS: LACTOBACILLUS ACIDOPHILUS (FLORANEX) TAB PO SCH (08:06)
[2018-12-01] MEDS: LIDOCAINE 5% 1 PATCH TD SCH (08:07)
[2018-12-01] MEDS: GABAPENTIN 300 MG CAP PO SCH ×3 (08:07→21:02)
[2018-12-01] MEDS: MULTIVITAMIN TAB PO SCH (08:07)
[2018-12-01] MEDS: FOLIC ACID 1 MG TAB PO SCH (08:07)
[2018-12-01] MEDS: MAGNESIUM OXIDE 400 MG TAB PO SCH ×2 (08:07→21:02)
[2018-12-01] MEDS: THIAMINE HCL 100 MG TAB PO SCH (08:08)
[2018-12-01] MEDS: PANTOprazole 40 MG TAB PO SCH ×2 (08:08→21:03)
[2018-12-01] MEDS: cefTRIAXone SODIUM 1,000 MG in DEXTROSE 5% 50 ML IV SCH (08:08)
[2018-12-01] MEDS: ONDANSETRON INJ 2 MG/ML 2 ML VIAL IV PRN ×2 (10:31→19:20)
[2018-12-01] MEDS: LOPERAMIDE HCL 2 MG CAP PO PRN ×3 (12:44→22:09)
--- NOTE | 2018-12-01 14:30 | XRay Report ---
XR chest 1V portable CLINICAL HISTORY: Pleuritic chest pain COMPARISON STUDY: 11/27/2018 FINDINGS: The cardiac and mediastinal contours are normal. There is no evidence of focal pulmonary co nsolidation. There is no evidence of failure. No pleural effusions are visualized.[There are minor le ft basilar atelectatic changes. There are some diminished lung volumes IMPRESSION: No active disease in the chest. Electronically signed by: Yahir aVlencia M.D. 12/01/2018 2:29 PM
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
[2018-12-01] MEDS: FERROUS SULFATE 325 MG TAB PO SCH (17:43)
[2018-12-01] MEDS: ZOLPIDEM TARTRATE 5 MG TAB PO PRN (21:01)
[2018-12-02] MEDS: HYDROmorphone INJ 0.5 MG/0.5 ML SYR IV PRN ×4 (02:32→21:19)
[2018-12-02] MEDS ORDERED: SODIUM CHLORIDE 0.9% 500 ML IV SCH (04:15)
[2018-12-02 04:51] LABS: BUN Creatinine Ratio 29.8 (10-20); Calcium 7.7 mg/dl (8.5-10.1); Creatinine Clr Calc Pharmacy 103.3 ml/min; Est GFR (African American) 122.5; Est GFR (Non-African American) 105.7; Magnesium 1.8 mg/dl (1.8-2.4); Potassium 3.4 mmol/L (3.5-5.1)
[2018-12-02 05:09] LABS: Hematocrit (blood only) 26.9 % (37-47); Mean Corpuscular Hemoglobin 22.9 pg (25-34); Mean Corpuscular Hgb Conc 29.7 g/dL (32-36); Mean Corpuscular Volume 77.1 fL (80-100); Platelet Count 43 K/uL (130-400); RDW Coefficient of Variation 21.4 % (11.5-14.5); RDW Standard Deviation 57.4 fL (36.4-46.3); Red Blood Count 3.49 M/uL (4.2-5.4); White Blood Count 1.48 K/uL (4.8-10.8)
[2018-12-02 05:12] LABS: Basophils # (auto) 0.01 K/uL (0-0.2); Basophils % (auto) 0.7 %; Eosinophils # (auto) 0.03 K/uL (0-0.5); Giant Platelets 1+; Hypochromasia Present; Lymphocytes # (auto) 0.47 K/uL (1.2-3.4); Lymphocytes % (auto) 31.8 %; Monocytes # (auto) 0.22 K/uL (0.11-0.59); Monocytes % (auto) 14.9 %; Neutrophils # (auto) 0.75 K/uL (1.4-6.5); Neutrophils % (auto) 50.6 %; Platelet Estimate Decreased (Normal)
[2018-12-02] MEDS: OXYCODONE HCL IR 5 MG TAB (IMMEDIATE RELEASE) PO PRN ×3 (06:39→19:31)
[2018-12-02] MEDS: SUCRALFATE 1 GM TAB PO SCH ×4 (08:16→21:14)
[2018-12-02] MEDS: PANCREAZE (LIPASE 10,500U) CAP PO SCH ×3 (08:16→16:05)
[2018-12-02] MEDS ORDERED: POTASSIUM CHLORIDE 20 MEQ TABCR PO STA ×2 (08:17→09:13)
[2018-12-02] MEDS ORDERED: CALCIUM GLUCONATE 10% 10 ML VIAL IV STA (08:20)
[2018-12-02] MEDS: CALCIUM 600MG + VIT D 400 IU TAB PO SCH ×2 (08:21→21:15)
[2018-12-02] MEDS: CITALOPRAM 20 MG TAB PO SCH (08:21)
[2018-12-02] MEDS: FOLIC ACID 1 MG TAB PO SCH (08:22)
[2018-12-02] MEDS: FERROUS SULFATE 325 MG TAB PO SCH (08:22)
[2018-12-02] MEDS: LACTOBACILLUS ACIDOPHILUS (FLORANEX) TAB PO SCH (08:22)
[2018-12-02] MEDS: MAGNESIUM OXIDE 400 MG TAB PO SCH ×2 (08:23→21:14)
[2018-12-02] MEDS: GABAPENTIN 300 MG CAP PO SCH ×2 (08:23→13:31)
[2018-12-02] MEDS: MULTIVITAMIN TAB PO SCH (08:23)
[2018-12-02] MEDS: LOPERAMIDE HCL 2 MG CAP PO PRN ×3 (08:24→21:13)
[2018-12-02] MEDS: THIAMINE HCL 100 MG TAB PO SCH (08:24)
[2018-12-02] MEDS: PANTOprazole 40 MG TAB PO SCH ×2 (08:24→21:14)
[2018-12-02] MEDS: LIDOCAINE 5% 1 PATCH TD SCH (08:28)
[2018-12-02] MEDS: cefTRIAXone SODIUM 1,000 MG in DEXTROSE 5% 50 ML IV SCH (08:35)
[2018-12-02] MEDS ORDERED: CALCIUM GLUCONATE 10% 1,000 MG in SODIUM CHLORIDE 0.9% 50 ML IV SCH (08:45)
[2018-12-02 08:47] LABS: Reticulocyte % 2.3 % (0.5-2.0); Reticulocytes # 0.08 10^6/uL (0.02-0.10)
[2018-12-02 08:59] LABS: Iron 14 mcg/dl (35-150); Total Iron Binding Capacity 379 mcg/dl (250-450); Transferrin 289 mg/dl (200-360); Transferrin Percent Saturation 3 % (15-50)
[2018-12-02] MEDS: MAGNESIUM SULFATE / D5W 1 GM/100 ML BAG IV SCH ×2 (09:22→10:24)
[2018-12-02] MEDS: SODIUM CHLORIDE 0.9% 1000ML 1,000 ML IV SCH (13:25)
[2018-12-02] MEDS: methylPREDNISolone 20 MG in SYRINGE 0 ML IV SCH ×2 (13:26→21:17)
[2018-12-02] MEDS: ONDANSETRON INJ 2 MG/ML 2 ML VIAL IV PRN (13:27)
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
[2018-12-02] MEDS ORDERED: methylPREDNISolone 20 MG in SYRINGE 0 ML IV SCH (21:00)
[2018-12-02] MEDS: ZOLPIDEM TARTRATE 5 MG TAB PO PRN (22:18)
[2018-12-03] MEDS: OXYCODONE HCL IR 5 MG TAB (IMMEDIATE RELEASE) PO PRN ×4 (01:38→20:10)
[2018-12-03] MEDS: SODIUM CHLORIDE 0.9% 1000ML 1,000 ML IV SCH (01:41)
[2018-12-03] MEDS: HYDROmorphone INJ 0.5 MG/0.5 ML SYR IV PRN ×3 (04:57→17:40)
[2018-12-03] MEDS: SUCRALFATE 1 GM TAB PO SCH ×4 (08:08→20:11)
[2018-12-03] MEDS: PANCREAZE (LIPASE 10,500U) CAP PO SCH ×3 (08:08→16:45)
[2018-12-03] MEDS: CALCIUM 600MG + VIT D 400 IU TAB PO SCH ×2 (08:09→20:11)
[2018-12-03] MEDS: CITALOPRAM 20 MG TAB PO SCH (08:09)
[2018-12-03] MEDS: FERROUS SULFATE 325 MG TAB PO SCH (08:10)
[2018-12-03] MEDS: LACTOBACILLUS ACIDOPHILUS (FLORANEX) TAB PO SCH (08:10)
[2018-12-03] MEDS: FOLIC ACID 1 MG TAB PO SCH (08:11)
[2018-12-03] MEDS: MAGNESIUM OXIDE 400 MG TAB PO SCH ×2 (08:11→20:12)
[2018-12-03] MEDS: MULTIVITAMIN TAB PO SCH (08:11)
[2018-12-03] MEDS: PANTOprazole 40 MG TAB PO SCH ×2 (08:12→20:11)
[2018-12-03] MEDS: THIAMINE HCL 100 MG TAB PO SCH (08:12)
[2018-12-03] MEDS: LOPERAMIDE HCL 2 MG CAP PO PRN ×3 (08:13→21:20)
[2018-12-03] MEDS: LIDOCAINE 5% 1 PATCH TD SCH (08:15)
[2018-12-03] MEDS: methylPREDNISolone 20 MG in SYRINGE 0 ML IV SCH ×2 (08:19→20:15)
[2018-12-03] MEDS: ONDANSETRON INJ 2 MG/ML 2 ML VIAL IV PRN ×2 (09:58→21:12)
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
[2018-12-03] MEDS ORDERED: GABAPENTIN 300 MG CAP PO STA (15:54)
[2018-12-03] MEDS: GABAPENTIN 100 MG CAP PO SCH (20:12)
[2018-12-03] MEDS: ZOLPIDEM TARTRATE 5 MG TAB PO PRN (21:12)
[2018-12-04] MEDS: HYDROmorphone INJ 0.5 MG/0.5 ML SYR IV PRN ×4 (00:01→18:15)
[2018-12-04] MEDS: OXYCODONE HCL IR 5 MG TAB (IMMEDIATE RELEASE) PO PRN ×4 (02:11→20:37)
[2018-12-04 06:30] LABS: Hematocrit (blood only) 26.7 % (37-47); Hemoglobin 8.3 g/dL (12.0-16.0); Mean Corpuscular Hemoglobin 23.1 pg (25-34); Mean Corpuscular Hgb Conc 31.1 g/dL (32-36); Mean Corpuscular Volume 74.4 fL (80-100); Platelet Count 76 K/uL (130-400); RDW Coefficient of Variation 21.3 % (11.5-14.5); RDW Standard Deviation 56.3 fL (36.4-46.3); Red Blood Count 3.59 M/uL (4.2-5.4); White Blood Count 2.18 K/uL (4.8-10.8)
[2018-12-04 06:38] LABS: Anisocytosis Present; Basophilic Stippling Occasional; Basophils # (auto) 0.01 K/uL (0-0.2); Basophils % (auto) 0.5 %; Giant Platelets 1+; Hypochromasia Present; Lymphocytes # (auto) 0.49 K/uL (1.2-3.4); Lymphocytes % (auto) 22.5 %; Monocytes # (auto) 0.44 K/uL (0.11-0.59); Monocytes % (auto) 20.2 %; Neutrophils # (auto) 1.24 K/uL (1.4-6.5); Neutrophils % (auto) 56.8 %; Platelet Estimate Decreased (Normal); Polychromasia 1+; Schistocytes 1+
[2018-12-04 06:41] LABS: Albumin Globulin Ratio 0.8 (0.9-2); Albumin Level 2.8 gm/dl (3.4-5.0); BUN Creatinine Ratio 22.6 (10-20); Bilirubin,Total 0.4 mg/dl (0.2-1); Calcium 8.1 mg/dl (8.5-10.1); Creatinine Clr Calc Pharmacy 125.8 ml/min; Est GFR (African American) 130.7; Est GFR (Non-African American) 112.8; Globulin 3.4 gm/dl (2.5-4.0); Magnesium 1.7 mg/dl (1.8-2.4); Potassium 3.8 mmol/L (3.5-5.1); Total Protein 6.2 gm/dl (6.4-8.2)
[2018-12-04] MEDS: GABAPENTIN 100 MG CAP PO SCH ×3 (08:10→20:07)
[2018-12-04] MEDS: MAGNESIUM OXIDE 400 MG TAB PO SCH ×2 (08:10→20:06)
[2018-12-04] MEDS: MULTIVITAMIN TAB PO SCH (08:11)
[2018-12-04] MEDS: LIDOCAINE 5% 1 PATCH TD SCH (08:11)
[2018-12-04] MEDS: PANCREAZE (LIPASE 10,500U) CAP PO SCH ×3 (08:11→17:18)
[2018-12-04] MEDS: SUCRALFATE 1 GM TAB PO SCH ×4 (08:11→20:05)
[2018-12-04] MEDS: CITALOPRAM 20 MG TAB PO SCH (08:11)
[2018-12-04] MEDS: THIAMINE HCL 100 MG TAB PO SCH (08:12)
[2018-12-04] MEDS: FOLIC ACID 1 MG TAB PO SCH (08:12)
[2018-12-04] MEDS: PANTOprazole 40 MG TAB PO SCH ×2 (08:12→20:06)
[2018-12-04] MEDS: LACTOBACILLUS ACIDOPHILUS (FLORANEX) TAB PO SCH (08:12)
[2018-12-04] MEDS: CALCIUM 600MG + VIT D 400 IU TAB PO SCH ×2 (08:12→20:05)
[2018-12-04] MEDS: FERROUS SULFATE 325 MG TAB PO SCH (08:13)
[2018-12-04] MEDS: MAGNESIUM SULFATE / D5W 1 GM/100 ML BAG IV SCH ×2 (08:14→09:33)
[2018-12-04] MEDS: ONDANSETRON INJ 2 MG/ML 2 ML VIAL IV PRN (09:29)
[2018-12-04] MEDS: LOPERAMIDE HCL 2 MG CAP PO PRN ×3 (09:31→23:05)
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
[2018-12-04] MEDS: ZOLPIDEM TARTRATE 5 MG TAB PO PRN (20:37)
[2018-12-05] MEDS: HYDROmorphone INJ 0.5 MG/0.5 ML SYR IV PRN ×3 (00:17→17:27)
[2018-12-05] MEDS: OXYCODONE HCL IR 5 MG TAB (IMMEDIATE RELEASE) PO PRN ×4 (02:42→20:38)
[2018-12-05] MEDS: LOPERAMIDE HCL 2 MG CAP PO PRN ×3 (02:42→21:58)
[2018-12-05] MEDS: THIAMINE HCL 100 MG TAB PO SCH (08:25)
[2018-12-05] MEDS: PANTOprazole 40 MG TAB PO SCH ×2 (08:25→20:40)
[2018-12-05] MEDS: LIDOCAINE 5% 1 PATCH TD SCH (08:25)
[2018-12-05] MEDS: MULTIVITAMIN TAB PO SCH (08:25)
[2018-12-05] MEDS: CITALOPRAM 20 MG TAB PO SCH (08:25)
[2018-12-05] MEDS: SUCRALFATE 1 GM TAB PO SCH ×4 (08:26→20:40)
[2018-12-05] MEDS: GABAPENTIN 100 MG CAP PO SCH ×3 (08:26→20:39)
[2018-12-05] MEDS: LACTOBACILLUS ACIDOPHILUS (FLORANEX) TAB PO SCH (08:26)
[2018-12-05] MEDS: MAGNESIUM OXIDE 400 MG TAB PO SCH ×2 (08:26→20:39)
[2018-12-05] MEDS: CALCIUM 600MG + VIT D 400 IU TAB PO SCH ×2 (08:26→20:40)
[2018-12-05] MEDS: FOLIC ACID 1 MG TAB PO SCH (08:26)
[2018-12-05] MEDS: PANCREAZE (LIPASE 10,500U) CAP PO SCH ×3 (08:26→17:28)
[2018-12-05 08:39] LABS: Albumin Level 2.8 gm/dl (3.4-5.0); BUN Creatinine Ratio 31.4 (10-20); Calcium 7.9 mg/dl (8.5-10.1); Creatinine Clr Calc Pharmacy 107.2 ml/min
[2018-12-05 08:42] LABS: Albumin Globulin Ratio 0.9 (0.9-2); Bilirubin,Total 0.4 mg/dl (0.2-1); Globulin 3.1 gm/dl (2.5-4.0); Total Protein 5.9 gm/dl (6.4-8.2)
[2018-12-05] MEDS: FERROUS SULFATE 325 MG TAB PO SCH (10:30)
--- NOTE | 2018-12-05 13:06 | Orthopedic Progress Note ---
Date of Service December 05, 2018 Subjective Continued mid thoracic back pain difficulty getting comfortable Review of Systems Review of Systems: All systems reviewed & are unremarkable except as noted in HPI & below Physical Exam Musculoskeletal: Spine: + thoracic spinal tenderness Results & Data Vital Signs (Past 12 Hours) Vital Signs Temp Pulse Resp BP Pulse Ox 12/05/18 06:56 37.1 C 58 L 18 120/60 96 PG Care Time/CCT Total # of Minutes Spent Total Time Spent with Patient: Total time spent is greater than 50% in coordination of care (as documented) at patient's floor/unit and/or counseling patient:
--- NOTE | 2018-12-05 13:20 | Progress Note ---
DATE: 12/05/2018 SUBJECTIVE: Siena is alert, oriented today. She seems stable. She still has significant pain, difficulty getting comfortable. OBJECTIVE: NEUROLOGIC: Intact. VASCULAR STRUCTURES: Intact. ASSESSMENT: Mid thoracic compression fracture. PLAN: At this point in time, I think she would be reasonable candidate for kyphoplasty procedure. I did get her medically stabilized, try to get her discharged home. I will gladly see her back in the office for followup appointment for appropriate scheduling.
[2018-12-05] MEDS ORDERED: ACETAMINOPHEN 65 ML IV ONE (14:45)
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
[2018-12-05] MEDS: ONDANSETRON INJ 2 MG/ML 2 ML VIAL IV PRN (16:45)
[2018-12-05] MEDS: ZOLPIDEM TARTRATE 5 MG TAB PO PRN (20:38)
[2018-12-05] MEDS ORDERED: OXYCODONE HCL IR 5 MG TAB (IMMEDIATE RELEASE) PO STA (22:15)
[2018-12-06] MEDS: OXYCODONE HCL IR 5 MG TAB (IMMEDIATE RELEASE) PO PRN ×4 (01:47→20:22)
[2018-12-06] MEDS: HYDROmorphone INJ 0.5 MG/0.5 ML SYR IV PRN ×2 (05:36→18:11)
[2018-12-06 06:41] LABS: Mean Corpuscular Hgb Conc 30.9 g/dL (32-36)
[2018-12-06 06:51] LABS: Hematocrit (blood only) 26.2 % (37-47); Hemoglobin 8.1 g/dL (12.0-16.0); Mean Corpuscular Hemoglobin 23.1 pg (25-34); Mean Corpuscular Volume 74.6 fL (80-100); RDW Coefficient of Variation 21.8 % (11.5-14.5); RDW Standard Deviation 57.4 fL (36.4-46.3); Red Blood Count 3.51 M/uL (4.2-5.4); White Blood Count 1.77 K/uL (4.8-10.8)
[2018-12-06 07:23] LABS: Anisocytosis Present; Basophils # (auto) 0.01 K/uL (0-0.2); Basophils % (auto) 0.6 %; Eosinophils # (auto) 0.06 K/uL (0-0.5); Eosinophils % (auto) 3.4 %; Hypochromasia Present; Lymphocytes # (auto) 0.47 K/uL (1.2-3.4); Lymphocytes % (auto) 26.6 %; Monocytes # (auto) 0.52 K/uL (0.11-0.59); Monocytes % (auto) 29.4 %; Neutrophils # (auto) 0.71 K/uL (1.4-6.5); Platelet Count 106 K/uL (130-400); Platelet Estimate Decreased (Normal)
[2018-12-06] MEDS: PANCREAZE (LIPASE 10,500U) CAP PO SCH ×3 (08:07→16:51)
[2018-12-06] MEDS: PANTOprazole 40 MG TAB PO SCH ×2 (08:08→20:20)
[2018-12-06] MEDS: CALCIUM 600MG + VIT D 400 IU TAB PO SCH ×2 (08:08→20:21)
[2018-12-06] MEDS: MULTIVITAMIN TAB PO SCH (08:08)
[2018-12-06] MEDS: FOLIC ACID 1 MG TAB PO SCH (08:08)
[2018-12-06] MEDS: THIAMINE HCL 100 MG TAB PO SCH (08:08)
[2018-12-06] MEDS: CITALOPRAM 20 MG TAB PO SCH (08:08)
[2018-12-06] MEDS: SUCRALFATE 1 GM TAB PO SCH ×4 (08:09→20:21)
[2018-12-06] MEDS: LACTOBACILLUS ACIDOPHILUS (FLORANEX) TAB PO SCH (08:09)
[2018-12-06] MEDS: GABAPENTIN 100 MG CAP PO SCH ×3 (08:09→20:20)
[2018-12-06] MEDS: MAGNESIUM OXIDE 400 MG TAB PO SCH ×2 (08:10→20:19)
[2018-12-06] MEDS: LIDOCAINE 5% 1 PATCH TD SCH (08:10)
[2018-12-06] MEDS: LOPERAMIDE HCL 2 MG CAP PO PRN (08:12)
[2018-12-06] MEDS ORDERED: ERGOCALCIFEROL 50,000 UNITS CAP PO SCH (09:00)
[2018-12-06] MEDS: FERROUS SULFATE 325 MG TAB PO SCH (11:42)
[2018-12-06] MEDS: ONDANSETRON INJ 2 MG/ML 2 ML VIAL IV PRN (15:48)
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
[2018-12-06] MEDS: ZOLPIDEM TARTRATE 5 MG TAB PO PRN (20:22)
[2018-12-07] MEDS: OXYCODONE HCL IR 5 MG TAB (IMMEDIATE RELEASE) PO PRN ×5 (01:04→20:49)
[2018-12-07 06:36] LABS: BUN Creatinine Ratio 33.3 (10-20); Calcium 8.1 mg/dl (8.5-10.1); Creatinine Clr Calc Pharmacy 128.6 ml/min; Est GFR (African American) 131.7; Est GFR (Non-African American) 113.6; Magnesium 1.8 mg/dl (1.8-2.4); Potassium 3.9 mmol/L (3.5-5.1)
[2018-12-07 06:37] LABS: Hematocrit (blood only) 27.3 % (37-47); Hemoglobin 8.2 g/dL (12.0-16.0); Mean Corpuscular Hemoglobin 22.5 pg (25-34); RDW Coefficient of Variation 21.6 % (11.5-14.5); RDW Standard Deviation 57.6 fL (36.4-46.3); Red Blood Count 3.64 M/uL (4.2-5.4); White Blood Count 2.09 K/uL (4.8-10.8)
[2018-12-07 07:36] LABS: Platelet Count 132 K/uL (130-400)
[2018-12-07] MEDS ORDERED: SODIUM CHLORIDE 0.9% 1000ML 1,000 ML IV ONE (07:36)
[2018-12-07 07:38] LABS: Anisocytosis Present; Basophils # (auto) 0.02 K/uL (0-0.2); Eosinophils # (auto) 0.06 K/uL (0-0.5); Eosinophils % (auto) 2.9 %; Giant Platelets 2+; Hypochromasia Present; Immature Granulocytes # (auto) 0.01 K/uL (0.00-0.02); Immature Granulocytes % (auto) 0.5 %; Lymphocytes # (auto) 0.62 K/uL (1.2-3.4); Lymphocytes % (auto) 29.7 %; Monocytes # (auto) 0.49 K/uL (0.11-0.59); Monocytes % (auto) 23.4 %; Neutrophils # (auto) 0.89 K/uL (1.4-6.5); Neutrophils % (auto) 42.5 %; Platelet Estimate Decreased (Normal); Polychromasia 1+
[2018-12-07] MEDS: SUCRALFATE 1 GM TAB PO SCH ×4 (08:00→20:51)
[2018-12-07] MEDS: GABAPENTIN 100 MG CAP PO SCH ×3 (08:46→20:52)
[2018-12-07] MEDS: MAGNESIUM OXIDE 400 MG TAB PO SCH (08:46)
[2018-12-07] MEDS: PANTOprazole 40 MG TAB PO SCH ×2 (08:46→20:51)
[2018-12-07] MEDS: CALCIUM 600MG + VIT D 400 IU TAB PO SCH ×2 (08:47→20:50)
[2018-12-07] MEDS: CITALOPRAM 20 MG TAB PO SCH (08:47)
[2018-12-07] MEDS: FOLIC ACID 1 MG TAB PO SCH (08:47)
[2018-12-07] MEDS: LACTOBACILLUS ACIDOPHILUS (FLORANEX) TAB PO SCH (08:47)
[2018-12-07] MEDS: PANCREAZE (LIPASE 10,500U) CAP PO SCH ×3 (08:47→18:02)
[2018-12-07] MEDS: MULTIVITAMIN TAB PO SCH (08:47)
[2018-12-07] MEDS: THIAMINE HCL 100 MG TAB PO SCH (08:47)
[2018-12-07] MEDS: LIDOCAINE 5% 1 PATCH TD SCH (08:48)
[2018-12-07] MEDS: FERROUS SULFATE 325 MG TAB PO SCH (08:49)
[2018-12-07] MEDS: ONDANSETRON INJ 2 MG/ML 2 ML VIAL IV PRN (15:50)
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
[2018-12-07] MEDS: MAGNESIUM CHLORIDE 64MG DELAYED REL TAB PO SCH (20:53)
[2018-12-07] MEDS: ZOLPIDEM TARTRATE 5 MG TAB PO PRN (20:56)
[2018-12-08] MEDS: OXYCODONE HCL IR 5 MG TAB (IMMEDIATE RELEASE) PO PRN ×6 (01:04→22:01)
[2018-12-08 05:53] LABS: Mean Corpuscular Hgb Conc 30.4 g/dL (32-36)
[2018-12-08 06:28] LABS: Anisocytosis Present; Basophils # (auto) 0.03 K/uL (0-0.2); Basophils % (auto) 1.6 %; Eosinophils # (auto) 0.06 K/uL (0-0.5); Eosinophils % (auto) 3.1 %; Giant Platelets 3+; Hemoglobin 8.1 g/dL (12.0-16.0); Hypochromasia Present; Lymphocytes # (auto) 0.51 K/uL (1.2-3.4); Lymphocytes % (auto) 26.7 %; Mean Corpuscular Hemoglobin 22.8 pg (25-34); Mean Corpuscular Volume 75.8 fL (80-100); Mean Platelet Volume 10.5 fL (7.4-10.4); Monocytes # (auto) 0.52 K/uL (0.11-0.59); Monocytes % (auto) 27.2 %; Neutrophils # (auto) 0.79 K/uL (1.4-6.5); Neutrophils % (auto) 41.4 %; Platelet Count 140 K/uL (130-400); Polychromasia 1+; RDW Coefficient of Variation 21.4 % (11.5-14.5); Red Blood Count 3.56 M/uL (4.2-5.4); White Blood Count 1.91 K/uL (4.8-10.8)
[2018-12-08] MEDS: SUCRALFATE 1 GM TAB PO SCH ×4 (08:01→20:33)
[2018-12-08] MEDS: PANCREAZE (LIPASE 10,500U) CAP PO SCH ×3 (08:02→17:21)
[2018-12-08] MEDS: CALCIUM 600MG + VIT D 400 IU TAB PO SCH ×2 (08:03→20:33)
[2018-12-08] MEDS: CITALOPRAM 20 MG TAB PO SCH (08:03)
[2018-12-08] MEDS: FERROUS SULFATE 325 MG TAB PO SCH (08:03)
[2018-12-08] MEDS: MULTIVITAMIN TAB PO SCH (08:04)
[2018-12-08] MEDS: LACTOBACILLUS ACIDOPHILUS (FLORANEX) TAB PO SCH (08:04)
[2018-12-08] MEDS: FOLIC ACID 1 MG TAB PO SCH (08:04)
[2018-12-08] MEDS: PANTOprazole 40 MG TAB PO SCH ×2 (08:05→20:33)
[2018-12-08] MEDS: GABAPENTIN 100 MG CAP PO SCH ×3 (08:05→20:32)
[2018-12-08] MEDS: MAGNESIUM CHLORIDE 64MG DELAYED REL TAB PO SCH ×2 (08:06→20:32)
[2018-12-08] MEDS: LIDOCAINE 5% 1 PATCH TD SCH (08:06)
[2018-12-08] MEDS: THIAMINE HCL 100 MG TAB PO SCH (08:06)
[2018-12-08] MEDS: ONDANSETRON INJ 2 MG/ML 2 ML VIAL IV PRN (09:38)
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
[2018-12-08] MEDS: ZOLPIDEM TARTRATE 5 MG TAB PO PRN (20:31)
[2018-12-09] MEDS: OXYCODONE HCL IR 5 MG TAB (IMMEDIATE RELEASE) PO PRN ×6 (02:13→23:35)
[2018-12-09 06:07] LABS: Hematocrit (blood only) 27.7 % (37-47); Hemoglobin 8.2 g/dL (12.0-16.0); Mean Corpuscular Hemoglobin 22.7 pg (25-34); Mean Corpuscular Hgb Conc 29.6 g/dL (32-36); Mean Corpuscular Volume 76.5 fL (80-100); Mean Platelet Volume 10.8 fL (7.4-10.4); Platelet Count 180 K/uL (130-400); RDW Coefficient of Variation 21.6 % (11.5-14.5); RDW Standard Deviation 58.8 fL (36.4-46.3); Red Blood Count 3.62 M/uL (4.2-5.4); White Blood Count 2.16 K/uL (4.8-10.8)
[2018-12-09 06:48] LABS: Anisocytosis Present; Basophils # (auto) 0.05 K/uL (0-0.2); Basophils % (auto) 2.3 %; Eosinophils # (auto) 0.06 K/uL (0-0.5); Eosinophils % (auto) 2.8 %; Giant Platelets 2+; Hypochromasia Present; Immature Granulocytes # (auto) 0.01 K/uL (0.00-0.02); Immature Granulocytes % (auto) 0.5 %; Lymphocytes # (auto) 0.66 K/uL (1.2-3.4); Lymphocytes % (auto) 30.6 %; Monocytes # (auto) 0.54 K/uL (0.11-0.59); Neutrophils # (auto) 0.84 K/uL (1.4-6.5); Neutrophils % (auto) 38.8 %; Ovalocytes 1+; Tear Drop Cells 1+; Toxic Vacuolation 1+
[2018-12-09] MEDS: THIAMINE HCL 100 MG TAB PO SCH (08:59)
[2018-12-09] MEDS: LIDOCAINE 5% 1 PATCH TD SCH (09:00)
[2018-12-09] MEDS: LACTOBACILLUS ACIDOPHILUS (FLORANEX) TAB PO SCH (09:01)
[2018-12-09] MEDS: CALCIUM 600MG + VIT D 400 IU TAB PO SCH ×2 (09:01→20:57)
[2018-12-09] MEDS: CITALOPRAM 20 MG TAB PO SCH (09:01)
[2018-12-09] MEDS: MULTIVITAMIN TAB PO SCH (09:01)
[2018-12-09] MEDS: PANTOprazole 40 MG TAB PO SCH ×2 (09:02→20:55)
[2018-12-09] MEDS: GABAPENTIN 100 MG CAP PO SCH ×3 (09:02→20:55)
[2018-12-09] MEDS: SUCRALFATE 1 GM TAB PO SCH ×4 (09:03→20:53)
[2018-12-09] MEDS: FOLIC ACID 1 MG TAB PO SCH (09:03)
[2018-12-09] MEDS: FERROUS SULFATE 325 MG TAB PO SCH (09:03)
[2018-12-09] MEDS: PANCREAZE (LIPASE 10,500U) CAP PO SCH ×3 (09:04→17:26)
[2018-12-09] MEDS: MAGNESIUM CHLORIDE 64MG DELAYED REL TAB PO SCH ×2 (09:05→20:57)
[2018-12-09] MEDS: ONDANSETRON INJ 2 MG/ML 2 ML VIAL IV PRN (11:02)
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
[2018-12-09] MEDS: ZOLPIDEM TARTRATE 5 MG TAB PO PRN (20:53)
[2018-12-10] MEDS: OXYCODONE HCL IR 5 MG TAB (IMMEDIATE RELEASE) PO PRN ×3 (04:28→12:19)
[2018-12-10 06:37] LABS: Hematocrit (blood only) 28.5 % (37-47); Hemoglobin 8.3 g/dL (12.0-16.0); Mean Corpuscular Hemoglobin 22.3 pg (25-34); Mean Corpuscular Hgb Conc 29.1 g/dL (32-36); Mean Corpuscular Volume 76.6 fL (80-100); Mean Platelet Volume 10.1 fL (7.4-10.4); Platelet Count 201 K/uL (130-400); RDW Coefficient of Variation 21.8 % (11.5-14.5); RDW Standard Deviation 59.9 fL (36.4-46.3); Red Blood Count 3.72 M/uL (4.2-5.4); White Blood Count 1.95 K/uL (4.8-10.8)
[2018-12-10 07:10] LABS: Anisocytosis Present; Basophils # (auto) 0.04 K/uL (0-0.2); Basophils % (auto) 2.1 %; Eosinophils # (auto) 0.09 K/uL (0-0.5); Eosinophils % (auto) 4.6 %; Giant Platelets 1+; Hypochromasia Present; Immature Granulocytes # (auto) 0.02 K/uL (0.00-0.02); Lymphocytes # (auto) 0.59 K/uL (1.2-3.4); Lymphocytes % (auto) 30.3 %; Monocytes % (auto) 20.5 %; Neutrophils # (auto) 0.81 K/uL (1.4-6.5); Neutrophils % (auto) 41.5 %; Poikilocytosis Present
[2018-12-10] MEDS: FOLIC ACID 1 MG TAB PO SCH (08:22)
[2018-12-10] MEDS: CALCIUM 600MG + VIT D 400 IU TAB PO SCH (08:22)
[2018-12-10] MEDS: FERROUS SULFATE 325 MG TAB PO SCH (08:22)
[2018-12-10] MEDS: CITALOPRAM 20 MG TAB PO SCH (08:22)
[2018-12-10] MEDS: PANCREAZE (LIPASE 10,500U) CAP PO SCH ×2 (08:23→12:20)
[2018-12-10] MEDS: MAGNESIUM CHLORIDE 64MG DELAYED REL TAB PO SCH (08:23)
[2018-12-10] MEDS: PANTOprazole 40 MG TAB PO SCH (08:23)
[2018-12-10] MEDS: LACTOBACILLUS ACIDOPHILUS (FLORANEX) TAB PO SCH (08:23)
[2018-12-10] MEDS: GABAPENTIN 100 MG CAP PO SCH (08:23)
[2018-12-10] MEDS: MULTIVITAMIN TAB PO SCH (08:23)
[2018-12-10] MEDS: SUCRALFATE 1 GM TAB PO SCH ×2 (08:23→12:20)
[2018-12-10] MEDS: THIAMINE HCL 100 MG TAB PO SCH (08:23)
[2018-12-10] MEDS: LIDOCAINE 5% 1 PATCH TD SCH (08:26)
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
== END 2018-12-10 14:16 | DRG 552 ==
LOC: 2S 13:40 → ED 13:40 → 2S 19:21 → 2N 11-28 11:03 → SUATTDRO 11-28 17:05 → 4W 12-04 01:57

== ENCOUNTER 2019-01-04 08:30 | Inpatient (IN) ==
[2019-01-04] MEDS ORDERED: ACETAMINOPHEN 500 MG TAB PO STA ×2 (09:07→14:49)
[2019-01-04] MEDS ORDERED: ONDANSETRON 4 MG OD TAB PO STA (09:21)
--- NOTE | 2019-01-04 09:57 | XRay Report ---
XR pelvis 1-2V routine CLINICAL HISTORY: 53 years-old Female presenting with Pt c/o pelvic pain. TECHNIQUE: Single frontal view of the pelvis was obtained. COMPARISON: CT from 11/27/2018. FINDINGS: Redemonstration of the implanted medical office manager projecting over the right lower quadrant with a erika ter coursing towards the lumbar region. Intramedullary nail fixation in the left femur with a distal diaphyseal interlocking screw. Osteopenia suspected. Mild degenerative changes of the lower lumbar sp ine. Sacroiliac joints, pubic symphysis, and hip joints congruent. There is a acetabular protrusio mo rphology of the left hip with moderate to severe degenerative change. The right hip is grossly normal . The bony pelvis is intact. IMPRESSION: 1. Acetabular protrusio of the left hip, unchanged from prior, with moderate to severe degenerative change. 2. Osteopenia. Allowing for this, no gross evidence of acute osseous injury of the pelvis. Electronically signed by: Luis A Cali M.D. 01/04/2019 9:55 AM
--- NOTE | 2019-01-04 10:11 | CT Scan Report ---
CT SCAN OF THE BRAIN WITHOUT IV CONTRAST CLINICAL HISTORY: Change in mental status. COMPARISON STUDY: CT of the brain dated 11/27/2018. TECHNIQUE: Unenhanced axial CT scan of the brain is performed from the vertex to the skull base. A d ose lowering technique was utilized adhering to the principles of ALARA. CT DOSE: 638.56 mGycm FINDINGS: Brain parenchyma: A punctate colloid cyst is noted at the roof of the third ventricle on axial image #15. There is no hemorrhage, mass effect, or evidence of acute territorial ischemia by CT criteria. G ray-white matter differentiation is preserved. No extra-axial fluid collection is seen. Ventricles, sulci, cisterns: Normal in configuration. Intracranial vasculature: There is mild atherosclerotic calcification of the cavernous carotid and ve rtebral arteries. Calvarium: Unremarkable. Sinuses and mastoids: The visualized paranasal sinuses are clear. The mastoid air cells are well pneu matized. Orbits: The bony orbits are grossly intact. IMPRESSION: There is no hemorrhage, mass effect, or evidence of acute territorial ischemia by CT vilma pedro. Electronically signed by: Herbie Reese M.D. 01/04/2019 10:10 AM
--- NOTE | 2019-01-04 10:17 | XRay Report ---
XR femur LT 2V routine CLINICAL HISTORY: 53 years-old Female presenting with Pt c/o left femur pain. TECHNIQUE: Frontal and crosstable lateral views of the left femur were obtained. COMPARISON: 11/27/2018. FINDINGS: Severe osteopenia. This limits evaluation for nondisplaced fracture. Redemonstration of internal fixa tion with an intramedullary nail and distal interlocking screw within the left femoral neck and proxi mal metadiaphysis. No periprosthetic fracture or lucency. Acetabular protrusio of the left hip with m oderate to severe degenerative changes. Internal fixation with buttress plate and screw in the medial tibial plateau. Joint space loss at the knee may be present to a mild degree. No gross evidence of a ny joint effusion. IMPRESSION: 1. Allowing for osteopenia, no acute osseous injury. 2. Internal fixation of the proximal left femur without evidence of hardware complication. 3. Left hip acetabular protrusio with moderate to severe degenerative change. 4. Partially visualized internal fixation of the medial tibial plateau. Electronically signed by: Luis A Cali M.D. 01/04/2019 10:15 AM
[2019-01-04 10:21] LABS: Mean Corpuscular Hgb Conc 30.6 g/dL (32-36); Nucleated RBC % (auto) 1.9 %
[2019-01-04 10:27] LABS: Hematocrit (blood only) 32.4 % (37-47); Hemoglobin 9.9 g/dL (12.0-16.0); Mean Corpuscular Hemoglobin 22.4 pg (25-34); Mean Corpuscular Volume 73.3 fL (80-100); RDW Coefficient of Variation 23.2 % (11.5-14.5); RDW Standard Deviation 58.8 fL (36.4-46.3); Red Blood Count 4.42 M/uL (4.2-5.4); White Blood Count 5.39 K/uL (4.8-10.8)
[2019-01-04 10:43] LABS: Anisocytosis Present; Basophilic Stippling 1+; Basophils # (auto) 0.01 K/uL (0-0.2); Basophils % (auto) 0.2 %; Hypochromasia Present; Immature Granulocytes # (auto) 0.06 K/uL (0.00-0.02); Immature Granulocytes % (auto) 1.1 %; Lymphocytes # (auto) 0.36 K/uL (1.2-3.4); Lymphocytes % (auto) 6.7 %; Microcytosis Present; Monocytes # (auto) 0.25 K/uL (0.11-0.59); Monocytes % (auto) 4.6 %; Neutrophils # (auto) 4.71 K/uL (1.4-6.5); Neutrophils % (auto) 87.4 %; Platelet Count 68 K/uL (130-400); Platelet Estimate Decreased (Normal)
[2019-01-04 10:45] LABS: Albumin Level 3.7 gm/dl (3.4-5.0); BUN Creatinine Ratio 26.2 (10-20); Creatinine Clr Calc Pharmacy 85.4 ml/min; Est GFR (African American) 116.7; Est GFR (Non-African American) 100.7
[2019-01-04] MEDS ORDERED: cloNIDine HCL 0.3 MG/24 HR TRANSDERM SYS TD STA (10:47)
[2019-01-04 10:56] LABS: Albumin Globulin Ratio 1.1 (0.9-2); Bilirubin,Total 1.3 mg/dl (0.2-1); Globulin 3.5 gm/dl (2.5-4.0); Thyroid Stimulating Hormone 0.509 uIu/ml (0.300-4.500); Total Protein 7.2 gm/dl (6.4-8.2)
[2019-01-04 11:25] LABS: Appearance Urine Clear (Clear); Bacteria Urine Automated Negative (Negative); Bilirubin Urine Negative (Negative); Blood Urine 1+ (Negative); Color Urine Yellow; Glucose Urine UA Negative (Negative); Leukocyte Esterase Urine Negative (Negative); Nitrite Urine Negative (Negative); Protein Urine 1+ (Negative); Specific Gravity Urine 1.016 (1.000-1.030); Urobilinogen Urine Negative (Negative)
[2019-01-04 11:26] LABS: Ketones Urine 4+ (Negative)
[2019-01-04 11:51] LABS: Amphetamines+Metham, Urine Neg (Neg); Barbiturates, Urine Neg (Neg); Benzodiazepine, Urine Neg (Neg); Cocaine, Urine Neg (Neg); MDMA (Ecstacy), Urine Neg (Neg); Methadone, Urine Neg (Neg); Opiate, Urine Neg (Neg); Phencyclidine, Urine Neg (Neg)
--- NOTE | 2019-01-04 14:33 | Emergency Department Note ---
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 Urobilinogen (Negative) Ur Leukocyte Esterase (Negative) Urine WBC (Auto) (0-5) /hpf Urine RBC (Auto) (0-4) /hpf U Hyaline Cast (Auto) (0-5) /lpf U Epithel Cells (Auto) (0-5) /lpf Urine Bacteria (Auto) (Negative) Urine Osmolality (500-800) mOsm/kg Ur Random Sodium mmol/L Salicylates (2.8-20) mg/dl Urine Opiates Screen (Neg) Ur Methadone, Qual (Neg) Acetaminophen (10-30) ug/ml Urine Barbiturates (Neg) Ur Phencyclidine (PCP) (Neg) U Amphetamin/Meth Scrn (Neg) MDMA (Ecstasy) Screen (Neg) U Benzodiazepines Scrn (Neg) Ur Cocaine Metabolite (Neg) U Marijuana (THC) Screen (Neg) Ethyl Alcohol mg/dL (0-3) mg/dl Hepatitis C Ab Screen Neg (Neg) Imaging Data Radiologist's Impression: Radiology results as stated below per my review and the radiologist's interpretation: XR pelvis 1-2V routine CLINICAL HISTORY: 53 years-old Female presenting with Pt c/o pelvic pain. TECHNIQUE: Single frontal view of the pelvis was obtained. COMPARISON: CT from 11/27/2018. FINDINGS: Redemonstration of the implanted medical records receptionist projecting over the right lower quadrant with a catheter coursing towards the lumbar region. Intramedullary nail fixation in the left femur with a distal diaphyseal interlocking screw. Osteopenia suspected. Mild degenerative changes of the lower lumbar spine. Sacroiliac joints, pubic symphysis, and hip joints congruent. There is a acetabular protrusio morphology of the left hip with moderate to severe degenerative change. The right hip is grossly normal. The bony pelvis is intact. IMPRESSION: 1. Acetabular protrusio of the left hip, unchanged from prior, with moderate to severe degenerative change. 2. Osteopenia. Allowing for this, no gross evidence of acute osseous injury of the pelvis. Electronically signed by: Luis A Cali M.D. 01/04/2019 9:55 AM XR femur LT 2V routine CLINICAL HISTORY: 53 years-old Female presenting with Pt c/o left femur pain. TECHNIQUE: Frontal and crosstable lateral views of the left femur were obtained. COMPARISON: 11/27/2018. FINDINGS: Severe osteopenia. This limits evaluation for nondisplaced fracture. Redemonstration of internal fixation with an intramedullary nail and distal interlocking screw within the left femoral neck and proximal metadiaphysis. No periprosthetic fracture or lucency. Acetabular protrusio of the left hip with moderate to severe degenerative changes. Internal fixation with buttress plate and screw in the medial tibial plateau. Joint space loss at the knee may be present to a mild degree. No gross evidence of any joint effusion. IMPRESSION: 1. Allowing for osteopenia, no acute osseous injury. 2. Internal fixation of the proximal left femur without evidence of hardware complication. 3. Left hip acetabular protrusio with moderate to severe degenerative change. 4. Partially visualized internal fixation of the medial tibial plateau. Electronically signed by: Luis A Cali M.D. 01/04/2019 10:[address] SCAN OF THE BRAIN WITHOUT IV CONTRAST CLINICAL HISTORY: Change in mental status. COMPARISON STUDY: CT of the brain dated 11/27/2018. TECHNIQUE: Unenhanced axial CT scan of the brain is performed from the vertex to the skull base. A dose lowering technique was utilized adhering to the principles of ALARA. CT DOSE: 638.56 mGycm FINDINGS: Brain parenchyma: A punctate colloid cyst is noted at the roof of the third ventricle on axial image #15. There is no hemorrhage, mass effect, or evidence of acute territorial ischemia by CT criteria. Sanchez-white matter differentiation is preserved. No extra-axial fluid collection is seen. Ventricles, sulci, cisterns: Normal in configuration. Intracranial vasculature: There is mild atherosclerotic calcification of the cavernous carotid and vertebral arteries. Calvarium: Unremarkable. Sinuses and mastoids: The visualized paranasal sinuses are clear. The mastoid air cells are well pneumatized. Orbits: The bony orbits are grossly intact. IMPRESSION: There is no hemorrhage, mass effect, or evidence of acute territorial ischemia by CT criteria. Electronically signed by: Herbie Reese M.D. 01/04/2019 10:10 AM Blood Pressure Blood Pressure Findings: Elevated blood pressure Blood Pressure Disposition: elevated BP felt to be situational MDM Narrative This is a 53-year-old female who presents emergency department complaining of alcohol withdrawal. The patient claims she has not had a drink in 2 days ho wever her blood alcohol level is grossly elevated to 20. She was given a clonidine patch here in the emergency department. She was given Tylenol for pain. I did discuss the case with case management who is trying to get the patient into a inpatient alcohol rehabilitation facility. For this reason she was signed out to Dr. mata at change of shift. Impression & Plan Alcohol intoxication, Low back pain Discharge Plan Visit Data *Final* Discharge Date/Time: 01/04/19 21:30 Chief Complaint: Back Injury/Pain ED Provider: Glen Mata Discharge Problem: Alcohol intoxication, Low back pain Patient Disposition: Admitted As Inpatient Discharge Instructions Interventions: ED Discharge Assessment Last Done: 01/04/19 21:30 Discharge Problem: Alcohol intoxication Qualifiers: Complication of substance-induced condition: uncomplicated Qualified Code(s): F10.920 - Alcohol use, unspecified with intoxication, uncomplicated Low back pain Qualifiers: Chronicity: acute Back pain laterality: midline Sciatica presence: without sciatica Qualified Code(s): M54.5 - Low back pain The scribe's documentation has been prepared under my direction and personally reviewed by me in its entirety. I confirm that the note above accurately reflects all work, treatment, procedures, and medical decision making performed by me.
[2019-01-04] MEDS ORDERED: ONDANSETRON 4 MG OD TAB PO PRN (15:25)
[2019-01-04] MEDS ORDERED: CHECK CLONIDINE PATCH PLACEMENT SCH (16:00)
[2019-01-04] MEDS ORDERED: D5W AND NSS 1,000 ML IV STA (19:26)
[2019-01-04] MEDS ORDERED: MULTI-VITAMIN INFUSION 10 ML, THIAMINE HCL 100 MG, FOLIC ACID 1 MG in SODIUM CHLORIDE 0... IV ONE (19:26)
[2019-01-04] MEDS ORDERED: THIAMINE HCL 100 MG in SYRINGE 9 ML IV STA (19:26)
[2019-01-04] MEDS ORDERED: LORazepam 1 MG/2 ML VIAL IV STA (19:36)
--- NOTE | 2019-01-04 19:40 | Emergency Department Note ---
ED Visit Note The patient was taken in signout from [place] at the change of shift. Please see that note for details. The patient was pending placement for alcohol rehab. Patient was seen by alcohol the rehab staff and was declined due to the patient reporting she "cannot walk". Review of patient's lab results from 10am this morning demonstrate metabolic acidosis with a bicarb of 11 and anion gap of 20. Historically patient does develop alcoholic ketoacidosis. Repeat lab work was ordered and demonstrated worsening metabolic acidosis with bicarb of 6 and Agap of 26. VBG with pH 7.25. Patient was ordered for saline lock with thiamine, banana bag followed by D5 NS. [facility]. .
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
[2019-01-04] MEDS ORDERED: GABAPENTIN 600 MG TAB PO STA (20:23)
[2019-01-04 20:39] LABS: Base Excess VBG -17.2 mEq/L; pH VBG 7.25 (7.36-7.41)
[2019-01-04 20:58] LABS: BUN Creatinine Ratio 31.1 (10-20); Calcium 8.1 mg/dl (8.5-10.1); Creatinine Clr Calc Pharmacy 92.6 ml/min; Est GFR (African American) 119.8; Est GFR (Non-African American) 103.3; Phosphorus 1.9 mg/dl (2.5-4.9); Potassium 3.8 mmol/L (3.5-5.1)
[2019-01-04] MEDS: LIDOCAINE 5% 1 PATCH TD SCH (20:59)
[2019-01-04] MEDS ORDERED: D5W AND LACTATED RINGERS 1,000 ML IV SCH ×2 (21:15→22:00)
[2019-01-04] MEDS ORDERED: SODIUM PHOSPHATE 3 MMOL/1 ML 5 ML VIAL IV STA (21:17)
[2019-01-04] MEDS ORDERED: LACTATED RINGER'S 1,000 ML IV ONE (21:22)
[2019-01-04] MEDS: POTASSIUM CHLORIDE 20 MEQ TABCR PO STA (21:43)
[2019-01-04] MEDS ORDERED: SODIUM BICARB 8.4% INJ 50 MEQ/50 ML SYR IV STA (21:47)
[2019-01-04] MEDS ORDERED: SODIUM PHOSPHATE 21 MMOL in SODIUM CHLORIDE 0.9% 500 ML IV ONE (22:00)
--- NOTE | 2019-01-04 22:04 | XRay Report ---
XR chest 1V portable HISTORY: 53 years-old Female sob acute shortness of breath COMPARISON: Chest radiograph 12/01/2018 TECHNIQUE: Portable AP view of the chest FINDINGS: Cardiomediastinal and hilar silhouettes are within normal limits. There is no pneumothorax, pleural e ffusion, focal airspace consolidation or overt pulmonary edema. Degenerative changes of the shoulders and spine. Surgical clips project over the upper abdomen. Levoscoliosis about the midthoracic spine. IMPRESSION: No acute process. The above report was generated using voice recognition software. It may contain grammatical, syntax o r spelling errors. Electronically signed by: Brennon Matos M.D. 01/04/2019 10:03 PM
[2019-01-04] MEDS ORDERED: GABAPENTIN 1200MG ALCOHOL WITHDRAWAL LOAD PO STA (22:25)
[2019-01-04] MEDS ORDERED: ACETAMINOPHEN 325 MG TAB PO PRN (22:25)
[2019-01-04] MEDS ORDERED: LORazepam 2 MG/4 ML VIAL IV PRN (22:25)
[2019-01-04] MEDS ORDERED: ATIVAN IV ALCOHOL WITHDRAWL IV PRN (22:25)
[2019-01-04] MEDS ORDERED: LORazepam 3 MG/6 ML VIAL IV PRN (22:25)
[2019-01-04] MEDS ORDERED: MoRPHine SULFATE 4 MG/ML 1 ML CARP\\VIAL IV PRN (22:25)
--- NOTE | 2019-01-04 22:42 | CT Scan Report ---
CT thoracic spine wo con, CT lumbar spine wo con HISTORY: 53 years-old Female worsening back pain acute mid and low back pain COMPARISON: CT chest, abdomen and pelvis 11/27/2018 TECHNIQUE: Multiple axial CT images of the thoracic and lumbar spine were obtained without the use of IV contrast. A dose lowering technique was used consistent with the principals of NADIRA. FINDINGS: CT THORACIC SPINE: Nonspecific distal esophageal wall thickening. Hepatic steatosis. Lung kerr appear clear. No pneumo thorax or pleural effusion identified. Paraspinal soft tissues are within normal limits. No definite high-grade central canal or foraminal narrowing identified. Demineralized appearance the bones. There is multilevel mild to moderate disc space narrowing with moderate spondylitic spurring and moderate to severe facet arthrosis. Compression deformities at T6-T9 appear unchanged from comparison and are likely chronic. No retropulsion. Multilevel Schmorl's nodes are present. No acute fracture or subluxa tion is identified. There is increased kyphotic curvature of the thoracic spine centered at approxima tely the T7 level. Levoscoliosis of the thoracic spine is centered at T9. Imaged ribs appear intact. CT LUMBAR SPINE: Motion degraded exam. Demineralized appearance of the bones. Moderate multilevel facet arthrosis. Pos terior annular disc bulges are seen at several levels without high-grade central canal narrowing. The re is acute or subacute appearing 40% superior endplate compression deformity at L2 which has progres sed from comparison and demonstrates 3 mm retropulsion about the superior aspect of the posterior end plate. This results in mild central canal stenosis, AP dimension of the thecal sac measuring 9 mm. No high-grade foraminal narrowing noted at this interspace. There is no significant paravertebral edema . Unchanged cortical thickening of the anterior mid sacrum suggestive of remote fracture. Remote appe aring Schmorl's node involves the superior endplates of L3 and L4. 4 mm nonobstructing calculus of the inferior pole left kidney. Cholecystectomy. Postoperative changes of the stomach. There is suggestion of edema surrounding the pancreatic head and neck. IMPRESSION: 1. Acute or subacute appearing 40% superior endplate compression deformity at L2 has progressed from 11/27/2018 and now demonstrates 3 mm retropulsion resulting in mild central canal stenosis. 2. No additional acute fracture or subluxation of the thoracic or lumbar spine. 3. Degenerative and chronic appearing findings as above. 4. Mild edema surrounding the pancreatic body and neck. Correlate with lipase level to exclude acute pancreatitis. 5. Nonobstructing left nephrolithiasis. 6. Hepatic steatosis. The above report was generated using voice recognition software. It may contain grammatical, syntax o r spelling errors. Electronically signed by: Brennon Matos M.D. 01/04/2019 10:39 PM
[2019-01-05] MEDS: SUCRALFATE 1 GM TAB PO SCH ×5 (00:38→21:05)
[2019-01-05] MEDS: OXYCODONE HCL IR 5 MG TAB (IMMEDIATE RELEASE) PO PRN ×4 (00:56→21:05)
[2019-01-05 01:02] LABS: BUN Creatinine Ratio 25.1 (10-20); Calcium 7.5 mg/dl (8.5-10.1); Creatinine Clr Calc Pharmacy 92.6 ml/min; Est GFR (African American) 119.8; Est GFR (Non-African American) 103.3; Potassium 3.1 mmol/L (3.5-5.1)
[2019-01-05 01:05] LABS: Base Excess VBG -14.9 mEq/L; Oxygen Saturation VBG 79.3 %; pH VBG 7.29 (7.36-7.41)
[2019-01-05] MEDS ORDERED: POTASSIUM CHLORIDE 20 MEQ TABCR PO STA (01:16)
[2019-01-05] MEDS: PROMETHAZINE HCL 12.5 MG in SODIUM CHLORIDE 0.9% 50 ML IV PRN ×2 (01:19→21:35)
[2019-01-05] MEDS: LORazepam 1 MG/2 ML VIAL IV PRN ×2 (01:29→21:57)
[2019-01-05] MEDS: POTASSIUM CHLORIDE 20 MEQ TABCR PO STA (01:35)
[2019-01-05] MEDS: PANTOprazole 40 MG TAB PO SCH ×3 (01:45→21:06)
[2019-01-05] MEDS ORDERED: cloNIDine HCL 0.1 MG TAB PO ONE (01:45)
[2019-01-05] MEDS: D5W AND LACTATED RINGERS 1,000 ML IV SCH ×5 (01:58→21:36)
[2019-01-05] MEDS: POTASSIUM CHLORIDE / WTR 10 MEQ/100 ML PLCT IV SCH ×4 (01:58→05:10)
[2019-01-05] MEDS: GABAPENTIN 600 MG TAB PO SCH ×3 (06:16→21:06)
[2019-01-05 07:34] LABS: Hematocrit (blood only) 23.3 % (37-47); Hemoglobin 7.3 g/dL (12.0-16.0); Mean Corpuscular Hemoglobin 22.3 pg (25-34); Mean Corpuscular Hgb Conc 31.3 g/dL (32-36); RDW Coefficient of Variation 21.5 % (11.5-14.5); RDW Standard Deviation 54.1 fL (36.4-46.3); Red Blood Count 3.28 M/uL (4.2-5.4); White Blood Count 2.42 K/uL (4.8-10.8)
[2019-01-05 07:35] LABS: Base Excess VBG -2.8 mEq/L; pH VBG 7.44 (7.36-7.41)
[2019-01-05 07:45] LABS: Albumin Level 2.8 gm/dl (3.4-5.0); BUN Creatinine Ratio 15.4 (10-20); Calcium 7.4 mg/dl (8.5-10.1); Est GFR (African American) 104.7; Est GFR (Non-African American) 90.4; Potassium 3.3 mmol/L (3.5-5.1)
[2019-01-05] MEDS ORDERED: INFLUENZA ADMINISTRATION CHARGE ONE (08:00)
[2019-01-05] MEDS ORDERED: INFLUENZA VIRUS QUAD VACCINE 0.5 ML SYR IM ONE (08:00)
[2019-01-05 08:01] LABS: Anisocytosis Present; Basophilic Stippling 1+; Bilirubin,Total 1.6 mg/dl (0.2-1); Globulin 2.7 gm/dl (2.5-4.0); Immature Granulocytes # (auto) 0.01 K/uL (0.00-0.02); Immature Granulocytes % (auto) 0.4 %; Lymphocytes % (auto) 16.5 %; Microcytosis Present; Monocytes # (auto) 0.15 K/uL (0.11-0.59); Monocytes % (auto) 6.2 %; Neutrophils # (auto) 1.86 K/uL (1.4-6.5); Neutrophils % (auto) 76.9 %; Nucleated RBC # (auto) 0.04 K/uL (0-0); Nucleated RBC % (auto) 1.5 %; Phosphorus 0.7 mg/dl (2.5-4.9); Platelet Count 27 K/uL (130-400); Platelet Estimate SIGNIFIC DECREASED (Normal); Total Protein 5.5 gm/dl (6.4-8.2)
[2019-01-05] MEDS ORDERED: POTASSIUM PHOS 3 MMOL/1 ML INFUSION IV STA ×2 (08:14→17:36)
[2019-01-05] MEDS ORDERED: POTASSIUM PHOSPHATE 21 MMOL in SODIUM CHLORIDE 0.9% 500 ML IV STA (08:19)
--- NOTE | 2019-01-05 08:33 | Gastrointestinal Consultation ---
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 (15-37) U/L ALT (12-78) U/L Alkaline Phosphatase (45-117) U/L Total Protein (6.4-8.2) gm/dl Albumin (3.4-5.0) gm/dl Globulin (2.5-4.0) gm/dl Albumin/Globulin Ratio (0.9-2) Lipase (73-393) U/L TSH (0.300-4.500) uIu/ml Urine Color Urine Appearance (Clear) Urine pH (4.5-7.5) Ur Specific Howell (1.000-1.030) Urine Protein (Negative) Urine Glucose (UA) (Negative) Urine Ketones (Negative) Urine Blood (Negative) Urine Nitrite (Negative) Urine Bilirubin (Negative) Urine Urobilinogen (Negative) Ur Leukocyte Esterase (Negative) Urine WBC (Auto) (0-5) /hpf Urine RBC (Auto) (0-4) /hpf U Hyaline Cast (Auto) (0-5) /lpf U Epithel Cells (Auto) (0-5) /lpf Urine Bacteria (Auto) (Negative) Urine Osmolality (500-800) mOsm/kg Ur Random Sodium mmol/L Salicylates (2.8-20) mg/dl Urine Opiates Screen (Neg) Ur Methadone, Qual (Neg) Acetaminophen (10-30) ug/ml Urine Barbiturates (Neg) Ur Phencyclidine (PCP) (Neg) U Amphetamin/Meth Scrn (Neg) MDMA (Ecstasy) Screen (Neg) U Benzodiazepines Scrn (Neg) Ur Cocaine Metabolite (Neg) U Marijuana (THC) Screen (Neg) Ethyl Alcohol mg/dL (0-3) mg/dl Hepatitis C Ab Screen (Neg)
[2019-01-05] MEDS: PANCREAZE (LIPASE 10,500U) CAP PO SCH ×3 (08:40→16:33)
[2019-01-05] MEDS: THIAMINE HCL 100 MG TAB PO SCH (08:40)
[2019-01-05] MEDS: FOLIC ACID 1 MG TAB PO SCH (08:40)
[2019-01-05] MEDS: FERROUS SULFATE 325 MG TAB PO SCH (08:41)
[2019-01-05] MEDS: LACTOBACILLUS ACIDOPHILUS (FLORANEX) TAB PO SCH (08:41)
[2019-01-05] MEDS ORDERED: FOLIC ACID 1 MG TAB PO SCH (09:00)
[2019-01-05] MEDS: LIDOCAINE 5% 1 PATCH TD SCH (11:19)
--- NOTE | 2019-01-05 15:59 | Hospitalist Progress Note ---
Date of Service January 05, 2019 Assessment & Plan (1) Alcohol withdrawal: Alcohol use disorder Alcohol withdrawal Will benefit from inpatient alcohol rehabilitation Continue thiamine, folic acid Monitor for withdrawal On gabapentin protocol Chronic hyponatremia Alcoholic ketoacidosis Sodium levels 132 Monitor Alcoholic pancreatitis Elevated lipase levels Continue IV fluids Bowel rest CT abdomen pending Appreciate GI input Pancytopenia Severe thrombocytopenia Secondary to alcoholism No acute bleeding issues Plan to transfuse PRBC/platelets as needed Hemoglobin drop likely dilutional secondary to IV fluids Lumbar radiculopathy Secondary to progression of lumbar compression fx from mechanical fall last month --Lumbar CT: Acute or subacute appearing 40% superior endplate compression deformity at L2 has progressed from 11/27/2018 and now demonstrates 3 mm retropulsion resulting in mild central canal stenosis. No additional acute fracture or subluxation of the thoracic or lumbar spine.3. Degenerative and chronic appearing findings as above. --Pain control Orthopedics consulted PT OT Severe hypophosphatemia Hypokalemia Replace electrolytes as needed Past tobacco abuse. DVT Px: SCDs RE thrombocytopenia, H/O GI bleed Code Status Full code Disposition Would benefit from rehab placement Subjective Patient seen and examined at bedside Complains of low back pain and generalized abdominal pain Denies any nausea, vomiting, chest pain, shortness of breath Lethargic earlier this morning No family at bedside Review of Systems Review of Systems: All systems reviewed & are unremarkable except as noted in HPI & below Physical Exam Physical Exam: Physical Exam: Vitals signs as noted above General Appearance:Thin, chronic ill appearing, no apparent distress Head: normocephalic, Atraumatic Eyes: normal inspection, EOMI Neck: supple, Trachea midline Respiratory/Chest: Normal breath sounds, CTA Cardiovascular: S1, S2, No murmur Abdomen/GI:Soft, Mild generalized tender, no guarding or rigidity, bowel sounds present Back: Lumbar tenderness Extremities/Musculoskelatal:normal inspection, no edema Neurologic/Psych:AAOX3, grossly no focal deficits Skin: normal color, warm Results & Data Vital Signs (Past 12 Hours) Vital Signs Temp Pulse Pulse Resp BP BP Pulse Ox 01/05/19 15:16 37.0 C 86 18 132/81 93 01/05/19 11:28 36.7 C 89 18 127/74 94 01/05/19 07:30 106 H 01/05/19 07:24 37.0 C 97 H 18 120/70 92 01/05/19 06:14 37.4 C 99 H 16 123/75 95 Laboratory Results Short CBC 01/05/19 Range/Units 07:14 WBC 2.42 L (4.8-10.8) K/uL Hgb 7.3 L (12.0-16.0) g/dL Hct 23.3 L (37-47) % Plt Count 27 L* D (130-400) K/uL BMP 01/04/19 01/05/19 01/05/19 20:21 00:25 07:14 Sodium 127 L D 130 L 132 L Potassium 3.8 3.1 L D 3.3 L Chloride 95 L 101 103 Carbon Dioxide 6 L* 10 L 21 BUN 19 H 15 12 Creatinine 0.60 0.60 0.75 Glucose 71 132 H 169 H Calcium 8.1 L 7.5 L 7.4 L Liver Function 01/05/19 Range/Units 07:14 Total Bilirubin 1.6 H (0.2-1) mg/dl AST 114 H (15-37) U/L ALT 49 (12-78) U/L Alkaline Phosphatase 194 H (45-117) U/L Albumin 2.8 L (3.4-5.0) gm/dl
[2019-01-05 17:10] LABS: Magnesium 1.7 mg/dl (1.8-2.4); Phosphorus 1.1 mg/dl (2.5-4.9)
[2019-01-05] MEDS ORDERED: MAGNESIUM SULFATE / D5W 1 GM/100 ML BAG IV ONE (18:00)
[2019-01-05] MEDS ORDERED: POTASSIUM PHOSPHATE 15 MMOL in SODIUM CHLORIDE 0.9% 250 ML IV ONE (18:00)
--- NOTE | 2019-01-05 19:57 | CT Scan Report ---
CT SCAN OF THE ABDOMEN AND PELVIS WITHOUT IV CONTRAST CLINICAL HISTORY: Generalized abdominal pain. COMPARISON STUDY: Abdominal CT dated 11/27/2018. TECHNIQUE: CT scan of the abdomen and pelvis is performed from the lung bases to the proximal femora. Images are reviewed in the axial, sagittal, and coronal planes. IV contrast was not administered for this examination as per the referring clinician. Note that the examination was performed in suboptim al fashion without oral and IV contrast. A dose lowering technique was utilized adhering to the princ iplflaquita of NADIRA. CT DOSE: 340.72 mGy.cm FINDINGS: Lung bases: The heart is normal in size and without pericardial effusion. There are trace pleural eff usions with bibasilar atelectasis. Linear atelectasis/scarring is present at both lung bases. There i s no airspace consolidation typical for pneumonia. Liver: The liver demonstrates diffusely diminished attenuation consistent with severe hepatic steatos is. The liver is cirrhotic in morphology, noting nodularity of the surface contour and hypertrophy of the left lobe and caudate. There is no intrahepatic biliary ductal dilatation. Gallbladder: Surgically absent noting clips in the gallbladder fossa. Spleen: The spleen is enlarged measuring 14.1 cm in length. Pancreas: The unenhanced pancreas is moderately atrophic. Mild infiltration is suggested around the p ancreatic head. Adrenal glands: Unremarkable. Kidneys: The unenhanced kidneys demonstrate mild cortical atrophy and are without hydronephrosis. The re is a 4 mm nonobstructing calculus in the lower pole of the left kidney. There is no evidence of co ntour deforming renal mass lesion. Abdominal vasculature: The abdominal aorta is normal in course and caliber. Stomach and bowel: Postoperative changes consistent with a history of Jeffy-en-Y gastric bypass surger y. There is no bowel obstruction. Question mild wall thickening versus underdistention of the left co sarkis. The appendix is well-visualized and normal. Peritoneum: There is no intraperitoneal free air. There is trace perihepatic and perisplenic ascites as well as a small volume of fluid in the pelvis. Lymphadenopathy: None. Pelvic viscera: Evaluation of the pelvis is degraded by streak artifact from orthopedic hardware in t he left hip. The bladder is normal as visualized. The uterus is surgically absent. No adnexal lesion is seen. Skeletal structures: The skeletal structures are heterogeneously osteopenic. No lytic or blastic lesi ons are seen. There is chronic posttraumatic deformity of the left hip with intertrochanteric and int ramedullary nails in place. 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 There are healed left pubic rin g and left iliac wing fractures. There is also chronic deformity of the sacrum. There are mild to mod erate superior compression deformities seen involving T12, L1, L2, L3, and L4. There are healed left- sided rib fractures. An intrathecal device is present within the right lower quadrant abdominal wall. Leads do not extend into the central canal. IMPRESSION: 1. Suboptimal examination without oral and IV contrast. 2. The liver is cirrhotic in morphology with evidence of severe steatosis. 3. Splenomegaly and a small volume of abdominopelvic ascites indicate portal hypertension. 4. There are trace pleural effusions. 5. The unenhanced pancreas is atrophic. Mild infiltration is questioned around the pancreatic head. C orrelate clinically and with serum amylase/lipase levels for evidence of pancreatitis. 6. Question mild wall thickening versus underdistention of the colon. Correlate clinically for eviden ce of a mild nonspecific colitis. 7. Left-sided nephrolithiasis. 8. Postoperative change is consistent with previous gastric bypass surgery. No bowel obstruction is s een. 9. There are numerous compression deformities. Loss of height at L2 has significantly increased from 11/27/2018. Correlate for point tenderness. 10. Additional findings as above. Electronically signed by: Herbie Reese M.D. 01/05/2019 7:55 PM
[2019-01-06] MEDS: D5W AND LACTATED RINGERS 1,000 ML IV SCH ×2 (02:34→08:54)
[2019-01-06] MEDS: OXYCODONE HCL IR 5 MG TAB (IMMEDIATE RELEASE) PO PRN ×4 (03:32→18:02)
[2019-01-06] MEDS: PROMETHAZINE HCL 12.5 MG in SODIUM CHLORIDE 0.9% 50 ML IV PRN ×2 (04:22→14:18)
[2019-01-06] MEDS: GABAPENTIN 600 MG TAB PO SCH ×2 (06:15→13:48)
[2019-01-06 07:28] LABS: Albumin Level 2.7 gm/dl (3.4-5.0); BUN Creatinine Ratio 7.3 (10-20); Bilirubin,Total 1.3 mg/dl (0.2-1); Calcium 7.9 mg/dl (8.5-10.1); Creatinine Clr Calc Pharmacy 123.4 ml/min; Est GFR (African American) 131.7; Est GFR (Non-African American) 113.6; Globulin 2.8 gm/dl (2.5-4.0); Magnesium 1.9 mg/dl (1.8-2.4); Phosphorus 0.9 mg/dl (2.5-4.9); Potassium 2.8 mmol/L (3.5-5.1); Total Protein 5.5 gm/dl (6.4-8.2)
[2019-01-06 07:38] LABS: Anisocytosis Present; Basophils # (auto) 0.01 K/uL (0-0.2); Basophils % (auto) 0.5 %; Eosinophils # (auto) 0.08 K/uL (0-0.5); Eosinophils % (auto) 4.2 %; Giant Platelets 1+; Hematocrit (blood only) 24.6 % (37-47); Lymphocytes # (auto) 0.62 K/uL (1.2-3.4); Lymphocytes % (auto) 32.8 %; Mean Corpuscular Hgb Conc 32.5 g/dL (32-36); Mean Corpuscular Volume 70.7 fL (80-100); Monocytes # (auto) 0.18 K/uL (0.11-0.59); Monocytes % (auto) 9.5 %; Nucleated RBC # (auto) 0.11 K/uL (0-0); Nucleated RBC % (auto) 5.6 %; Pappenheimer Bodies 1+; Platelet Count 28 K/uL (130-400); Platelet Estimate SIGNIFIC DECREASED (Normal); RDW Standard Deviation 54.4 fL (36.4-46.3); Red Blood Count 3.48 M/uL (4.2-5.4); Target Cells 1+; White Blood Count 1.89 K/uL (4.8-10.8)
[2019-01-06] MEDS ORDERED: POTASSIUM CHLORIDE 20 MEQ TABCR PO STA ×2 (07:43→18:18)
[2019-01-06] MEDS ORDERED: POTASSIUM PHOS 3 MMOL/1 ML INFUSION IV STA (07:44)
[2019-01-06] MEDS ORDERED: POTASSIUM PHOSPHATE 21 MMOL in SODIUM CHLORIDE 0.9% 500 ML IV ONE (08:30)
[2019-01-06] MEDS: LACTATED RINGER'S 1,000 ML IV SCH ×3 (09:14→22:49)
[2019-01-06] MEDS: THIAMINE HCL 100 MG TAB PO SCH (09:14)
[2019-01-06] MEDS: PANTOprazole 40 MG TAB PO SCH ×2 (09:14→20:06)
[2019-01-06] MEDS: LIDOCAINE 5% 1 PATCH TD SCH (09:14)
[2019-01-06] MEDS: FERROUS SULFATE 325 MG TAB PO SCH (09:15)
[2019-01-06] MEDS: LACTOBACILLUS ACIDOPHILUS (FLORANEX) TAB PO SCH (09:15)
[2019-01-06] MEDS: FOLIC ACID 1 MG TAB PO SCH (09:15)
[2019-01-06] MEDS: SUCRALFATE 1 GM TAB PO SCH ×4 (09:15→20:06)
[2019-01-06] MEDS: PANCREAZE (LIPASE 10,500U) CAP PO SCH ×3 (09:15→16:24)
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
--- NOTE | 2019-01-06 16:56 | Hospitalist Progress Note ---
Date of Service January 06, 2019 Assessment & Plan (1) Alcohol withdrawal: Alcohol use disorder Alcohol withdrawal Will benefit from inpatient alcohol rehabilitation Continue thiamine, folic acid Monitor for withdrawal On gabapentin protocol Diarrhea/Colitis Nonspecific colitis noted on CT scan We will check stool for C. difficile If negative C. difficile, plan to start Imodium as needed Chronic hyponatremia Alcoholic ketoacidosis Hyponatremia resolved Sodium levels 136 Monitor Alcoholic pancreatitis --CT ABD:The liver is cirrhotic in morphology with evidence of severe steatosis. Splenomegaly and a small volume of abdominopelvic ascites indicate portal hypertension. There are trace pleural effusions. The unenhanced pancreas is atrophic. Mild infiltration is questioned around the pancreatic head. Correlate clinically and with serum amylase/lipase levels for evidence of pancreatitis. Question mild wall thickening versus underdistention of the colon. Correlate clinically for evidence of a mild nonspecific colitis. Left-sided nephrolithiasis. Postoperative change is consistent with previous gastric bypass surgery. No bowel obstruction is seen. There are numerous compression deformities. Loss of height at L2 has significantly increased from 11/27/2018. Correlate for point tenderness. --Elevated lipase levels Continue IV fluids Advance diet as tolerated Appreciate GI input Pancytopenia Severe thrombocytopenia Secondary to alcoholism No acute bleeding issues Plan to transfuse PRBC/platelets as needed Hemoglobin at baseline Lumbar radiculopathy Secondary to progression of lumbar compression fx from mechanical fall last month --Lumbar CT: Acute or subacute appearing 40% superior endplate compression deformity at L2 has progressed from 11/27/2018 and now demonstrates 3 mm retropulsion resulting in mild central canal stenosis. No additional acute fra cture or subluxation of the thoracic or lumbar spine.3. Degenerative and chronic appearing findings as above. --Pain control Orthopedics consulted PT OT --Needs kyphoplasty when able Severe hypophosphatemia Hypokalemia Replace electrolytes as needed Past tobacco abuse. DVT Px: SCDs RE thrombocytopenia, H/O GI bleed Code Status Full code Disposition Would benefit from rehab placement Subjective Patient seen and examined at bedside States having diarrhea today Abdominal pain slightly improved Tolerating diet Still complains of back pain Denies any nausea, vomiting, chest pain, shortness of breath More alert and awake today Review of Systems Review of Systems: All systems reviewed & are unremarkable except as noted in HPI & below Physical Exam Physical Exam: Physical Exam: Vitals signs as noted above General Appearance:Thin, chronic ill appearing, no apparent distress Head: normocephalic, Atraumatic Eyes: normal inspection, EOMI Neck: supple, Trachea midline Respiratory/Chest: Normal breath sounds, CTA Cardiovascular: S1, S2, No murmur Abdomen/GI:Soft, Mild generalized tender, no guarding or rigidity, bowel sounds present Back: Lumbar tenderness Extremities/Musculoskelatal:normal inspection, no edema Neurologic/Psych:AAOX3, grossly no focal deficits Skin: normal color, warm Results & Data Vital Signs (Past 12 Hours) Vital Signs Temp Pulse Pulse Resp BP BP Pulse Ox 01/06/19 15:14 37.1 C 91 H 16 123/85 96 01/06/19 11:31 37.0 C 96 H 18 122/77 96 01/06/19 07:17 36.8 C 91 H 18 121/76 95 Laboratory Results Short CBC 01/06/19 Range/Units 06:27 WBC 1.89 L (4.8-10.8) K/uL Hgb 8.0 L (12.0-16.0) g/dL Hct 24.6 L (37-47) % Plt Count 28 L* (130-400) K/uL BMP 01/06/19 06:27 Sodium 136 Potassium 2.8 L D Chloride 106 Carbon Dioxide 24 BUN 3 L D Creatinine 0.45 L D Glucose 115 H Calcium 7.9 L Liver Function 01/06/19 Range/Units 06:27 Total Bilirubin 1.3 H (0.2-1) mg/dl AST 85 H (15-37) U/L ALT 42 (12-78) U/L Alkaline Phosphatase 181 H (45-117) U/L Albumin 2.7 L (3.4-5.0) gm/dl
[2019-01-06 17:00] LABS: Potassium 3.3 mmol/L (3.5-5.1)
[2019-01-06] MEDS ORDERED: SODIUM PHOSPHATE 3 MMOL/1 ML INFUSION IV STA (17:43)
[2019-01-06 18:05] LABS: Phosphorus 1.3 mg/dl (2.5-4.9)
[2019-01-06] MEDS ORDERED: SODIUM PHOSPHATE 21 MMOL in SODIUM CHLORIDE 0.9% 500 ML IV ONE (18:15)
[2019-01-07] MEDS: GABAPENTIN 600 MG TAB PO SCH ×2 (00:19→12:39)
[2019-01-07] MEDS: OXYCODONE HCL IR 5 MG TAB (IMMEDIATE RELEASE) PO PRN ×6 (00:21→21:35)
[2019-01-07] MEDS: LACTATED RINGER'S 1,000 ML IV SCH ×3 (05:41→19:46)
[2019-01-07 07:07] LABS: Anisocytosis Present; Basophils # (auto) 0.01 K/uL (0-0.2); Basophils % (auto) 0.6 %; Eosinophils # (auto) 0.08 K/uL (0-0.5); Eosinophils % (auto) 4.5 %; Hemoglobin 7.6 g/dL (12.0-16.0); Hypochromasia Present; Lymphocytes # (auto) 0.49 K/uL (1.2-3.4); Lymphocytes % (auto) 27.8 %; Mean Corpuscular Hgb Conc 31.7 g/dL (32-36); Mean Corpuscular Volume 72.5 fL (80-100); Monocytes # (auto) 0.17 K/uL (0.11-0.59); Monocytes % (auto) 9.7 %; Neutrophils # (auto) 1.01 K/uL (1.4-6.5); Neutrophils % (auto) 57.4 %; Pappenheimer Bodies 1+; Platelet Count 26 K/uL (130-400); Platelet Estimate SIGNIFIC DECREASED (Normal); RDW Coefficient of Variation 22.4 % (11.5-14.5); RDW Standard Deviation 55.4 fL (36.4-46.3); Red Blood Count 3.31 M/uL (4.2-5.4); White Blood Count 1.76 K/uL (4.8-10.8)
[2019-01-07 07:10] LABS: Albumin Level 2.6 gm/dl (3.4-5.0); BUN Creatinine Ratio 5.1 (10-20); Calcium 7.6 mg/dl (8.5-10.1); Creatinine Clr Calc Pharmacy 173.5 ml/min; Est GFR (African American) 147.3; Est GFR (Non-African American) 127.1; Potassium 3.3 mmol/L (3.5-5.1)
[2019-01-07 07:19] LABS: Bilirubin,Total 1.2 mg/dl (0.2-1); Globulin 2.5 gm/dl (2.5-4.0); Total Protein 5.1 gm/dl (6.4-8.2)
[2019-01-07] MEDS: LIDOCAINE 5% 1 PATCH TD SCH (07:40)
[2019-01-07] MEDS: FOLIC ACID 1 MG TAB PO SCH (07:41)
[2019-01-07] MEDS: PANTOprazole 40 MG TAB PO SCH ×2 (07:41→20:12)
[2019-01-07] MEDS: PANCREAZE (LIPASE 10,500U) CAP PO SCH ×3 (07:42→17:33)
[2019-01-07] MEDS: SUCRALFATE 1 GM TAB PO SCH ×4 (07:42→20:12)
[2019-01-07] MEDS: LACTOBACILLUS ACIDOPHILUS (FLORANEX) TAB PO SCH (07:43)
[2019-01-07] MEDS: FERROUS SULFATE 325 MG TAB PO SCH (07:43)
[2019-01-07] MEDS: THIAMINE HCL 100 MG TAB PO SCH (07:44)
[2019-01-07] MEDS ORDERED: POTASSIUM PHOS 3 MMOL/1 ML INFUSION IV STA (08:54)
[2019-01-07] MEDS ORDERED: MoRPHine SULFATE 4 MG/ML 1 ML CARP\\VIAL IV PRN (08:59)
[2019-01-07] MEDS ORDERED: POTASSIUM PHOSPHATE 15 MMOL in SODIUM CHLORIDE 0.9% 250 ML IV ONE (09:45)
[2019-01-07] MEDS: LORazepam 1 MG/2 ML VIAL IV PRN (17:34)
--- NOTE | 2019-01-07 18:09 | Hospitalist Progress Note ---
Date of Service January 07, 2019 Assessment & Plan (1) Alcohol withdrawal: Alcohol use disorder Alcohol withdrawal Will benefit from inpatient alcohol rehabilitation Continue thiamine, folic acid Monitor for withdrawal On gabapentin protocol Diarrhea/Colitis Nonspecific colitis noted on CT scan stool for C. difficile: Negative No diarrhea today Imodium PRN Chronic hyponatremia Alcoholic ketoacidosis Hyponatremia resolved Monitor Alcoholic pancreatitis --CT ABD:The liver is cirrhotic in morphology with evidence of severe steatosis. Splenomegaly and a small volume of abdominopelvic ascites indicate portal hypertension. There are trace pleural effusions. The unenhanced pancreas is atrophic. Mild infiltration is questioned around the pancreatic head. Correlate clinically and with serum amylase/lipase levels for evidence of pancreatitis. Question mild wall thickening versus underdistention of the colon. Correlate clinically for evidence of a mild nonspecific colitis. Left-sided nephrolithiasis. Postoperative change is consistent with previous gastric bypass surgery. No bowel obstruction is seen. There are numerous compression deformities. Loss of height at L2 has significantly increased from 11/27/2018. Correlate for point tenderness. --Elevated lipase levels Decrease IV fluids Advance diet today Lipase levels normalized Appreciate GI input Counseled to quit alcohol use on multiple occasions Pancytopenia Severe thrombocytopenia Secondary to alcoholism No acute bleeding issues Plan to transfuse PRBC/platelets as needed Hemoglobin at baseline Lumbar radiculopathy Secondary to progression of lumbar compression fx from mechanical fall last month --Lumbar CT: Acute or subacute appearing 40% superior endplate compression deformity at L2 has progressed from 11/27/2018 and now demonstrates 3 mm retropulsion resulting in mild central canal stenosis. No additional acute fracture or subluxation of the thoracic or lumbar spine.3. Degenerative and chronic appearing findings as above. --Pain control Orthopedics consulted PT OT --Needs kyphoplasty when able Severe hypophosphatemia Hypokalemia Replace electrolytes as needed Past tobacco abuse. DVT Px: SCDs RE thrombocytopenia, H/O GI bleed Code Status Full code Disposition Would benefit from rehab placement Subjective Patient seen and examined at bedside Abdominal pain much improved Tolerating diet Has back pain, controlled Office no other complaints Denies any chest pain, shortness of breath, nausea, vomiting No signs of alcohol withdrawal Review of Systems Review of Systems: All systems reviewed & are unremarkable except as noted in HPI & below Physical Exam Physical Exam: Physical Exam: Vitals signs as noted above General Appearance:Thin, chronic ill appearing, no apparent distress Head: normocephalic, Atraumatic Eyes: normal inspection, EOMI Neck: supple, Trachea midline Respiratory/Chest: Normal breath sounds, CTA Cardiovascular: S1, S2, No murmur Abdomen/GI:Soft, Mild generalized tender, no guarding or rigidity, bowel sounds present Back: Lumbar tenderness Extremities/Musculoskelatal:normal inspection, no edema Neurologic/Psych:AAOX3, grossly no focal deficits Skin: normal color, warm Results & Data Vital Signs (Past 12 Hours) Vital Signs Temp Pulse Resp BP BP Pulse Ox 01/07/19 15:04 37.1 C 85 18 147/94 H 97 01/07/19 11:28 37.1 C 83 18 129/85 96 01/07/19 07:35 37.0 C 96 H 18 134/82 97 Laboratory Results Short CBC 01/07/19 Range/Units 05:47 WBC 1.76 L (4.8-10.8) K/uL Hgb 7.6 L (12.0-16.0) g/dL Hct 24.0 L (37-47) % Plt Count 26 L* (130-400) K/uL BMP 01/06/19 01/07/19 15:58 05:47 Sodium 139 Potassium 3.3 L D 3.3 L Chloride 107 Carbon Dioxide 26 BUN 2 L Creatinine 0.32 L Glucose 96 Calcium 7.6 L Liver Function 01/07/19 Range/Units 05:47 Total Bilirubin 1.2 H (0.2-1) mg/dl AST 145 H (15-37) U/L ALT 59 (12-78) U/L Alkaline Phosphatase 173 H (45-117) U/L Albumin 2.6 L (3.4-5.0) gm/dl
[2019-01-08] MEDS ORDERED: Nursing to Pharmacy Communication ONE (00:46)
[2019-01-08] MEDS: OXYCODONE HCL IR 5 MG TAB (IMMEDIATE RELEASE) PO PRN ×6 (01:50→22:37)
[2019-01-08] MEDS: CITALOPRAM 20 MG TAB PO SCH (07:48)
[2019-01-08] MEDS: LACTOBACILLUS ACIDOPHILUS (FLORANEX) TAB PO SCH (07:49)
[2019-01-08] MEDS: FOLIC ACID 1 MG TAB PO SCH (07:50)
[2019-01-08] MEDS: FERROUS SULFATE 325 MG TAB PO SCH (07:50)
[2019-01-08] MEDS: THIAMINE HCL 100 MG TAB PO SCH (07:50)
[2019-01-08] MEDS: PANCREAZE (LIPASE 10,500U) CAP PO SCH ×3 (07:50→16:28)
[2019-01-08] MEDS: SUCRALFATE 1 GM TAB PO SCH ×4 (07:50→20:13)
[2019-01-08] MEDS: PANTOprazole 40 MG TAB PO SCH ×2 (07:51→20:13)
[2019-01-08] MEDS: LIDOCAINE 5% 1 PATCH TD SCH (07:51)
[2019-01-08] MEDS: LACTATED RINGER'S 1,000 ML IV SCH (07:52)
[2019-01-08 08:24] LABS: Hematocrit (blood only) 26.9 % (37-47); Hemoglobin 8.4 g/dL (12.0-16.0); Mean Corpuscular Hgb Conc 31.2 g/dL (32-36); Mean Corpuscular Volume 73.5 fL (80-100); RDW Coefficient of Variation 23.5 % (11.5-14.5); RDW Standard Deviation 55.8 fL (36.4-46.3); Red Blood Count 3.66 M/uL (4.2-5.4)
[2019-01-08 08:50] LABS: Albumin Level 2.6 gm/dl (3.4-5.0); BUN Creatinine Ratio 6.6 (10-20); Calcium 8.1 mg/dl (8.5-10.1); Creatinine Clr Calc Pharmacy 150.1 ml/min; Est GFR (African American) 140.4; Est GFR (Non-African American) 121.2; Potassium 3.3 mmol/L (3.5-5.1)
[2019-01-08 08:53] LABS: Albumin Globulin Ratio 0.9 (0.9-2); Bilirubin,Total 1.1 mg/dl (0.2-1); Phosphorus 2.3 mg/dl (2.5-4.9); Total Protein 5.6 gm/dl (6.4-8.2)
[2019-01-08] MEDS ORDERED: POTASSIUM PHOS 3 MMOL/1 ML INFUSION IV STA (09:11)
[2019-01-08 09:14] LABS: Anisocytosis Present; Eosinophils # (auto) 0.05 K/uL (0-0.5); Eosinophils % (auto) 3.8 %; Hypochromasia Present; Immature Granulocytes # (auto) 0.01 K/uL (0.00-0.02); Immature Granulocytes % (auto) 0.8 %; Lymphocytes # (auto) 0.35 K/uL (1.2-3.4); Lymphocytes % (auto) 26.9 %; Microcytosis Present; Monocytes # (auto) 0.16 K/uL (0.11-0.59); Monocytes % (auto) 12.3 %; Neutrophils # (auto) 0.73 K/uL (1.4-6.5); Neutrophils % (auto) 56.2 %; Pappenheimer Bodies 1+; Platelet Count 41 K/uL (130-400); Platelet Estimate Decreased (Normal); Polychromasia 1+
[2019-01-08] MEDS ORDERED: POTASSIUM CHLORIDE 20 MEQ TABCR PO ONE (09:45)
[2019-01-08] MEDS ORDERED: POTASSIUM PHOSPHATE 9 MMOL in SODIUM CHLORIDE 0.9% 250 ML IV ONE (09:45)
[2019-01-08] MEDS ORDERED: GABAPENTIN 600 MG TAB PO SCH (12:00)
--- NOTE | 2019-01-08 17:38 | Hospitalist Progress Note ---
Date of Service January 08, 2019 Assessment & Plan (1) Alcohol withdrawal: Alcohol use disorder Alcohol withdrawal Will benefit from inpatient alcohol rehabilitation Continue thiamine, folic acid Monitor for withdrawal On gabapentin protocol Diarrhea/Colitis Nonspecific colitis noted on CT scan stool for C. difficile: Negative Diarrhea improved Imodium PRN Chronic hyponatremia Alcoholic ketoacidosis Hyponatremia resolved Monitor Alcoholic pancreatitis --CT ABD:The liver is cirrhotic in morphology with evidence of severe steatosis. Splenomegaly and a small volume of abdominopelvic ascites indicate portal hypertension. There are trace pleural effusions. The unenhanced pancreas is atrophic. Mild infiltration is questioned around the pancreatic head. Correlate clinically and with serum amylase/lipase levels for evidence of pancreatitis. Question mild wall thickening versus underdistention of the colon. Correlate clinically for evidence of a mild nonspecific colitis. Left-sided nephrolithiasis. Postoperative change is consistent with previous gastric bypass surgery. No bowel obstruction is seen. There are numerous compression deformities. Loss of height at L2 has significantly increased from 11/27/2018. Correlate for point tenderness. --Elevated lipase levels Decrease IV fluids Advance diet today Lipase levels normalized Appreciate GI input Counseled to quit alcohol use on multiple occasions Pancytopenia Neutropenia Severe thrombocytopenia Secondary to alcoholism No acute bleeding issues Plan to transfuse PRBC/platelets as needed Hb at baseline Platelet count slowly improving Lumbar radiculopathy Secondary to progression of lumbar compression fx from mechanical fall last month --Lumbar CT: Acute or subacute appearing 40% superior endplate compression deformity at L2 has progressed from 11/27/2018 and now demonstrates 3 mm retropulsion resulting in mild central canal stenosis. No additional acute fracture or subluxation of the thoracic or lumbar spine.3. Degenerative and chronic appearing findings as above. --Pain control Orthopedics consulted PT OT --Needs kyphoplasty when able Severe hypophosphatemia Hypokalemia Replace electrolytes as needed Past tobacco abuse. DVT Px: SCDs RE thrombocytopenia, H/O GI bleed Code Status Full code Disposition Needs rehab placement Subjective Patient seen and examined at bedside Had 1 loose BM this morning Abdominal pain improved Tolerates diet back pain is controlled Denies any chest pain, shortness of breath, nausea, vomiting Review of Systems Review of Systems: All systems reviewed & are unremarkable except as noted in HPI & below Physical Exam Physical Exam: Physical Exam: Vitals signs as noted above General Appearance:Thin, chronic ill appearing, no apparent distress Head: normocephalic, Atraumatic Eyes: normal inspection, EOMI Neck: supple, Trachea midline Respiratory/Chest: Normal breath sounds, CTA Cardiovascular: S1, S2, No murmur Abdomen/GI:Soft, non tender, no guarding or rigidity, bowel sounds present Back: Lumbar tenderness Extremities/Musculoskelatal:normal inspection, no edema Neurologic/Psych:AAOX3, grossly no focal deficits Skin: normal color, warm Results & Data Vital Signs (Past 12 Hours) Vital Signs Temp Pulse Pulse Resp BP BP Pulse Ox 01/08/19 15:21 37.5 C 90 18 134/85 95 01/08/19 15:19 104 H 01/08/19 11:57 37.3 C 87 18 131/87 96 01/08/19 07:11 85 01/08/19 06:58 37.3 C 101 H 20 147/94 H 97 Laboratory Results Short CBC 01/08/19 Range/Units 07:31 WBC 1.30 L (4.8-10.8) K/uL Hgb 8.4 L (12.0-16.0) g/dL Hct 26.9 L (37-47) % Plt Count 41 L D (130-400) K/uL BMP 01/08/19 07:31 Sodium 136 Potassium 3.3 L Chloride 103 Carbon Dioxide 26 BUN 2 L Creatinine 0.37 L Glucose 122 H Calcium 8.1 L Liver Function 01/08/19 Range/Units 07:31 Total Bilirubin 1.1 H (0.2-1) mg/dl AST 182 H (15-37) U/L ALT 83 H (12-78) U/L Alkaline Phosphatase 178 H (45-117) U/L Albumin 2.6 L (3.4-5.0) gm/dl
[2019-01-09] MEDS: OXYCODONE HCL IR 5 MG TAB (IMMEDIATE RELEASE) PO PRN ×6 (02:43→23:53)
[2019-01-09 07:40] LABS: Hematocrit (blood only) 26.1 % (37-47); Hemoglobin 8.1 g/dL (12.0-16.0); Mean Corpuscular Hemoglobin 22.9 pg (25-34); Mean Corpuscular Volume 73.9 fL (80-100); Platelet Count 61 K/uL (130-400); RDW Coefficient of Variation 25.3 % (11.5-14.5); RDW Standard Deviation 55.3 fL (36.4-46.3); Red Blood Count 3.53 M/uL (4.2-5.4)
[2019-01-09 07:42] LABS: Anisocytosis Present; Basophils # (auto) 0.01 K/uL (0-0.2); Basophils % (auto) 0.8 %; Eosinophils # (auto) 0.04 K/uL (0-0.5); Eosinophils % (auto) 3.3 %; Lymphocytes # (auto) 0.46 K/uL (1.2-3.4); Lymphocytes % (auto) 38.3 %; Monocytes # (auto) 0.29 K/uL (0.11-0.59); Monocytes % (auto) 24.2 %; Neutrophils % (auto) 33.4 %; Platelet Estimate Decreased (Normal); Polychromasia 1+
[2019-01-09 07:49] LABS: BUN Creatinine Ratio 15.1 (10-20); Calcium 8.1 mg/dl (8.5-10.1); Creatinine Clr Calc Pharmacy 179.1 ml/min; Est GFR (African American) 148.8; Est GFR (Non-African American) 128.4; Magnesium 1.7 mg/dl (1.8-2.4); Phosphorus 2.5 mg/dl (2.5-4.9); Potassium 3.3 mmol/L (3.5-5.1)
[2019-01-09] MEDS ORDERED: POTASSIUM CHLORIDE 20 MEQ TABCR PO STA (09:31)
[2019-01-09] MEDS: PANCREAZE (LIPASE 10,500U) CAP PO SCH ×3 (09:38→15:49)
[2019-01-09] MEDS: SUCRALFATE 1 GM TAB PO SCH ×4 (09:38→19:59)
[2019-01-09] MEDS: CITALOPRAM 20 MG TAB PO SCH (09:38)
[2019-01-09] MEDS: THIAMINE HCL 100 MG TAB PO SCH (09:39)
[2019-01-09] MEDS: PANTOprazole 40 MG TAB PO SCH ×2 (09:39→19:59)
[2019-01-09] MEDS: LACTOBACILLUS ACIDOPHILUS (FLORANEX) TAB PO SCH (09:39)
[2019-01-09] MEDS: FOLIC ACID 1 MG TAB PO SCH (09:40)
[2019-01-09] MEDS: LIDOCAINE 5% 1 PATCH TD SCH (09:40)
[2019-01-09] MEDS: FERROUS SULFATE 325 MG TAB PO SCH (09:40)
[2019-01-09] MEDS ORDERED: MAGNESIUM SULFATE / D5W 1 GM/100 ML BAG IV SCH (09:45)
--- NOTE | 2019-01-09 18:22 | Hospitalist Progress Note ---
Date of Service January 09, 2019 Assessment & Plan (1) Alcohol withdrawal: Alcohol use disorder Alcohol withdrawal Will benefit from inpatient alcohol rehabilitation Continue thiamine, folic acid Monitor for withdrawal Completed gabapentin protocol No signs of withdrawal today Diarrhea/Colitis Nonspecific colitis noted on CT scan stool for C. difficile: Negative Diarrhea improving Imodium PRN Chronic hyponatremia Alcoholic ketoacidosis Hyponatremia resolved monitor Alcoholic pancreatitis --CT ABD:The liver is cirrhotic in morphology with evidence of severe steatosis. Splenomegaly and a small volume of abdominopelvic ascites indicate portal hypertension. There are trace pleural effusions. The unenhanced pancreas is atrophic. Mild infiltration is questioned around the pancreatic head. Correlate clinically and with serum amylase/lipase levels for evidence of pancreatitis. Question mild wall thickening versus underdistention of the colon. Correlate clinically for evidence of a mild nonspecific colitis. Left-sided nephrolithiasis. Postoperative change is consistent with previous gastric bypass surgery. No bowel obstruction is seen. There are numerous compression deformities. Loss of height at L2 has significantly increased from 11/27/2018. Correlate for point tenderness. --Elevated lipase levels Received IV fluids Tolerating diet Lipase levels normalized Appreciate GI input Counseled to quit alcohol use on multiple occasions Pancytopenia Neutropenia Severe thrombocytopenia Secondary to alcoholism No acute bleeding issues Plan to transfuse PRBC/platelets as needed Hb at baseline Platelet count slowly improving Monitor for neutropenia Lumbar radiculopathy Secondary to progression of lumbar compression fx from mechanical fall last month --Lumbar CT: Acute or subacute appearing 40% superior endplate compression deformity at L2 has progressed from 11/27/2018 and now demonstrates 3 mm retropulsion resulting in mild central canal stenosis. No additional acute fracture or subluxation of the thoracic or lumbar spine.3. Degenerative and chronic appearing findings as above. --Pain control Orthopedics consulted PT OT --Needs kyphoplasty when able Severe hypophosphatemia Hypokalemia Hypomagnesemia Replace electrolytes as needed Past tobacco abuse. DVT Px: SCDs RE thrombocytopenia, H/O GI bleed Code Status Full code Disposition Needs rehab placement when neutropenia improves Subjective Patient seen and examined at bedside Doing well today Diarrhea improving Neutropenia slightly worsened today Platelets continues to improve States having low back pain--unchanged Offers no other complaints Denies any chest pain, shortness of breath, nausea, vomiting Needs rehab placement Review of Systems Review of Systems: All systems reviewed & are unremarkable except as noted in HPI & below Physical Exam Physical Exam: Physical Exam: Vitals signs as noted above General Appearance:Thin, chronic ill appearing, no apparent distress Head: normocephalic, Atraumatic Eyes: normal inspection, EOMI Neck: supple, Trachea midline Respiratory/Chest: Normal breath sounds, CTA Cardiovascular: S1, S2, No murmur Abdomen/GI:Soft, non tender, no guarding or rigidity, bowel sounds present Back: Lumbar tenderness Extremities/Musculoskelatal:normal inspection, no edema Neurologic/Psych:AAOX3, grossly no focal deficits Skin: normal color, warm Results & Data Vital Signs (Past 12 Hours) Vital Signs Temp Pulse Pulse Resp BP BP Pulse Ox 01/09/19 16:47 78 01/09/19 15:00 37.1 C 84 20 127/80 94 01/09/19 11:00 37.0 C 57 L 18 138/85 96 01/09/19 07:49 114 H 01/09/19 07:31 37.3 C 86 18 119/78 96 Laboratory Results Short CBC 01/09/19 Range/Units 06:39 WBC 1.20 L (4.8-10.8) K/uL Hgb 8.1 L (12.0-16.0) g/dL Hct 26.1 L (37-47) % Plt Count 61 L (130-400) K/uL BMP 01/09/19 06:39 Sodium 138 Potassium 3.3 L Chloride 105 Carbon Dioxide 24 BUN 5 L Creatinine 0.31 L Glucose 97 Calcium 8.1 L
[2019-01-10] MEDS: LOPERAMIDE HCL 2 MG CAP PO PRN (02:08)
[2019-01-10] MEDS: OXYCODONE HCL IR 5 MG TAB (IMMEDIATE RELEASE) PO PRN ×4 (04:05→19:39)
[2019-01-10] MEDS: SUCRALFATE 1 GM TAB PO SCH ×4 (06:33→19:39)
[2019-01-10] MEDS: LACTOBACILLUS ACIDOPHILUS (FLORANEX) TAB PO SCH (07:59)
[2019-01-10] MEDS: CITALOPRAM 20 MG TAB PO SCH (07:59)
[2019-01-10] MEDS: FERROUS SULFATE 325 MG TAB PO SCH (08:00)
[2019-01-10] MEDS: THIAMINE HCL 100 MG TAB PO SCH (08:00)
[2019-01-10] MEDS: FOLIC ACID 1 MG TAB PO SCH (08:00)
[2019-01-10] MEDS: PANTOprazole 40 MG TAB PO SCH ×2 (08:00→19:39)
[2019-01-10] MEDS: PANCREAZE (LIPASE 10,500U) CAP PO SCH ×3 (08:00→15:34)
[2019-01-10] MEDS: LIDOCAINE 5% 1 PATCH TD SCH (08:01)
[2019-01-10 08:30] LABS: Hematocrit (blood only) 26.1 % (37-47); Hemoglobin 8.1 g/dL (12.0-16.0); Mean Corpuscular Hemoglobin 23.1 pg (25-34); Mean Corpuscular Volume 74.6 fL (80-100); Platelet Count 92 K/uL (130-400); RDW Standard Deviation 59.8 fL (36.4-46.3); White Blood Count 1.63 K/uL (4.8-10.8)
[2019-01-10 08:35] LABS: BUN Creatinine Ratio 15.9 (10-20); Calcium 8.4 mg/dl (8.5-10.1); Creatinine Clr Calc Pharmacy 154.3 ml/min; Est GFR (African American) 141.7; Est GFR (Non-African American) 122.3; Magnesium 1.9 mg/dl (1.8-2.4); Phosphorus 2.9 mg/dl (2.5-4.9); Potassium 3.4 mmol/L (3.5-5.1)
[2019-01-10 08:52] LABS: Eosinophils # (auto) 0.05 K/uL (0-0.5); Eosinophils % (auto) 3.1 %; Giant Platelets 1+; Lymphocytes # (auto) 0.62 K/uL (1.2-3.4); Monocytes # (auto) 0.47 K/uL (0.11-0.59); Monocytes % (auto) 28.8 %; Neutrophils # (auto) 0.49 K/uL (1.4-6.5); Neutrophils % (auto) 30.1 %; Platelet Estimate Decreased (Normal); Poikilocytosis Present
[2019-01-10] MEDS ORDERED: MoRPHine SULFATE 2 MG/ML CARP IV PRN (16:06)
--- NOTE | 2019-01-10 16:11 | Hospitalist Progress Note ---
Date of Service January 10, 2019 Assessment & Plan (1) Alcohol withdrawal: -This is a 53 year old female with history of alcohol use and chronic back pain who presented on 01/04/19 because of worsening back discomfort at home with usual left leg weakness and incontinence symptoms as per patient; as per History and physical note, Patient resorted to alcohol consumption to alleviate pain because the Oxycodone prescription not covered by insurance -patient does not appear to be alcohol withdrawal during the hospital stay and completed gabapentin protocol -patient can be transferred off telemetry [facility] on 01/10/19 Alcohol Use disorder -management as above Alcoholic pancreatitis -admission CT ABD:The liver is cirrhotic in morphology with evidence of severe steatosis. Splenomegaly and a small volume of abdominopelvic ascites indicate portal hypertension. There are trace pleural effusions. The unenhanced pancreas is atrophic. Mild infiltration is questioned around the pancreatic head. Correlate clinically and with serum amylase/lipase levels for evidence of pancreatitis. Question mild wall thickening versus underdistention of the colon. Correlate clinically for evidence of a mild nonspecific colitis. Left-sided nephrolithiasis. Postoperative change is consistent with previous gastric bypass surgery. No bowel obstruction is seen. There are numerous compression deformities. Loss of height at L2 has significantly increased from 11/27/2018. Correlate for point tenderness. -Elevated lipase levels on admission -was treated with IV fluids -at this time it would appear that pancreatitis symptoms are resolved as patient's focus is back pain Lumbar radiculopathy Secondary to progression of lumbar compression fx from mechanical fall last month -Lumbar CT: Acute or subacute appearing 40% superior endplate compression deformity at L2 has progressed from 11/27/2018 and now demonstrates 3 mm retropulsion resulting in mild central canal stenosis. No additional acute fracture or subluxation of the thoracic or lumbar spine.3. Degenerative and chronic appearing findings as above. -there are no current inpatient orthopedic plans for kyphoplasty and likely would not be done unless on outpatient boateng -Pain control, PT/OT Diarrhea/Colitis -Nonspecific colitis noted on CT scan -stool for C. difficile: Negative -Imodium PRN Chronic hyponatremia Alcoholic ketoacidosis -Hyponatremia and acidosis is resolved Severe hypophosphatemia Hypokalemia Hypomagnesemia -as of 01/10/19 these electrolytes are near or at goal -Replace electrolytes as needed Pancytopenia Neutropenia Severe thrombocytopenia Secondary to alcoholism -No acute bleeding issues -no evidence of infection Past tobacco use. DVT Px: SCDs Code Status Full code Disposition: patient's hospital disposition is complicated by history of nonadherence, alcohol use, and and inability to function because of chronic pain. nursing services manager has made several referrals and to this date is not successful at obtaining non-hospital care centers for the patient as of yet at this time Transfer from telemetry to medical [facility] on 01/10/19, encourage patient to participate in PT/OT and ambulation as tolerated Subjective Patient's complaints of generalized pain. denies acute pain of abdomen. Patient more focused on back pain. When talking she does not appear to be in acute distress. However, she reports feeling "feverish" and did not work with therapy today. She reported she was able to ambulate with walk to bathroom Review of Systems Review of Systems: All systems reviewed & are unremarkable except as noted in HPI & below Physical Exam Constitutional: cooperative Eyes: PERRL, conjunctivae normal, anicteric sclerae EOM intact bilaterally ENMT: external ear and nose normal, oropharynx normal Neck: normal visual inspection Respiratory: normal respiratory effort, lungs clear to auscultation Cardiovascular: RRR, no murmur, no edema Gastrointestinal (Abdomen): normal bowel sounds, soft, nontender, no hepatosplenomegaly Musculoskeletal: Head/Neck/Chest: normocephalic and head atraumatic Neurologic: PERRL, EOMI, accommodation nl, no face palsy, no dysarthria Psychiatric: Orientation: alert and oriented x 3 Results & Data Vital Signs (Past 12 Hours) Vital Signs Temp Pulse Pulse Resp BP BP Pulse Ox 01/10/19 15:30 37.4 C 75 18 131/80 97 01/10/19 10:57 37.1 C 72 18 111/72 94 01/10/19 07:10 36.7 C 84 18 127/85 97 01/10/19 07:09 75 01/10/19 04:16 37.1 C 86 20 125/73 97
[2019-01-11] MEDS: OXYCODONE HCL IR 5 MG TAB (IMMEDIATE RELEASE) PO PRN ×6 (00:07→19:54)
[2019-01-11] MEDS: FERROUS SULFATE 325 MG TAB PO SCH (08:00)
[2019-01-11] MEDS: LACTOBACILLUS ACIDOPHILUS (FLORANEX) TAB PO SCH (08:00)
[2019-01-11] MEDS: PANCREAZE (LIPASE 10,500U) CAP PO SCH ×3 (08:00→15:47)
[2019-01-11] MEDS: FOLIC ACID 1 MG TAB PO SCH (08:00)
[2019-01-11] MEDS: THIAMINE HCL 100 MG TAB PO SCH (08:01)
[2019-01-11] MEDS: LIDOCAINE 5% 1 PATCH TD SCH (08:01)
[2019-01-11] MEDS: PANTOprazole 40 MG TAB PO SCH ×2 (08:01→19:56)
[2019-01-11] MEDS: SUCRALFATE 1 GM TAB PO SCH ×4 (08:01→19:56)
[2019-01-11] MEDS: CITALOPRAM 20 MG TAB PO SCH (08:02)
[2019-01-11 10:05] LABS: Anisocytosis Present; Hypochromasia Present; Polychromasia 1+
--- NOTE | 2019-01-11 13:59 | Hospitalist Progress Note ---
Date of Service January 11, 2019 Assessment & Plan (1) Alcohol withdrawal: -This is a 53 year old female with history of alcohol use and chronic back pain who presented on 01/04/19 because of worsening back discomfort at home with usual left leg weakness and incontinence symptoms as per patient; as per History and physical note, Patient resorted to alcohol consumption to alleviate pain because the Oxycodone prescription not covered by insurance -patient does not appear to be alcohol withdrawal during the hospital stay and completed gabapentin protocol -telemetry discontinued on 01/10/19 Alcohol Use disorder -management as above Alcoholic pancreatitis -admission CT ABD:The liver is cirrhotic in morphology with evidence of severe steatosis. Splenomegaly and a small volume of abdominopelvic ascites indicate portal hypertension. There are trace pleural effusions. The unenhanced pancreas is atrophic. Mild infiltration is questioned around the pancreatic head. Correlate clinically and with serum amylase/lipase levels for evidence of pancreatitis. Question mild wall thickening versus underdistention of the colon. Correlate clinically for evidence of a mild nonspecific colitis. Left-sided nephrolithiasis. Postoperative change is consistent with previous gastric bypass surgery. No bowel obstruction is seen. There are numerous compression deformities. Loss of height at L2 has significantly increased from 11/27/2018. Correlate for point tenderness. -Elevated lipase levels on admission -was treated with IV fluids -at this time it would appear that pancreatitis symptoms are resolved as patient's focus is back pain Lumbar radiculopathy Secondary to progression of lumbar compression fx from mechanical fall last month -Lumbar CT: Acute or subacute appearing 40% superior endplate compression deformity at L2 has progressed from 11/27/2018 and now demonstrates 3 mm retropu lsion resulting in mild central canal stenosis. No additional acute fracture or subluxation of the thoracic or lumbar spine.3. Degenerative and chronic appearing findings as above. -there are no current inpatient orthopedic plans for kyphoplasty and likely would not be done unless on outpatient boateng -Pain control, PT/OT Diarrhea/Colitis -Nonspecific colitis noted on CT scan -stool for C. difficile: Negative -Imodium PRN Chronic hyponatremia Alcoholic ketoacidosis -Hyponatremia and acidosis is resolved Severe hypophosphatemia Hypokalemia Hypomagnesemia -as of 01/10/19 these electrolytes are near or at goal Pancytopenia Neutropenia Severe thrombocytopenia Secondary to alcoholism -No acute bleeding issues -no evidence of infection Past tobacco use. DVT Px: SCDs Code Status Full code Disposition: patient's hospital disposition is complicated by history of nonadherence, alcohol use, and and general inability to function because of patient's subjective pain levels which prevents her from being a functional independent living adult. digital project manager has made several referrals and to this date is not successful at obtaining non-hospital care centers for the patient as of yet at this time Telemetry discontinued on 01/10/19 encourage patient to participate in PT/OT and ambulation as tolerated will await on 01/11/19 if any case management process on patient placement Subjective Patient seen and examined at bedside. Patient awoke from sleep. She reports she has been able to do some physical activity earlier today. denies shortness of breath. She does not appear to be in acute pain currently. She reports recent dosage of tramadol helping her. no vomiting. no dizziness Review of Systems Review of Systems: All systems reviewed & are unremarkable except as noted in HPI & below Physical Exam Constitutional: cooperative Eyes: PERRL, conjunctivae normal, anicteric sclerae EOM intact bilaterally ENMT: external ear and nose normal, oropharynx normal Neck: normal visual inspection Respiratory: normal respiratory effort, lungs clear to auscultation Cardiovascular: RRR, no murmur, no edema Gastrointestinal (Abdomen): normal bowel sounds, soft, nontender, no hepatosplenomegaly Musculoskeletal: Head/Neck/Chest: normocephalic and head atraumatic Neurologic: PERRL, EOMI, accommodation nl, no face palsy, no dysarthria Psychiatric: Orientation: alert and oriented x 3 Results & Data Vital Signs (Past 12 Hours) Vital Signs Temp Pulse Resp BP Pulse Ox 01/11/19 07:38 37.0 C 81 17 131/62 97
[2019-01-12] MEDS: OXYCODONE HCL IR 5 MG TAB (IMMEDIATE RELEASE) PO PRN ×5 (02:05→21:58)
[2019-01-12] MEDS: PANCREAZE (LIPASE 10,500U) CAP PO SCH ×3 (07:53→17:09)
[2019-01-12] MEDS: CITALOPRAM 20 MG TAB PO SCH (07:53)
[2019-01-12] MEDS: FERROUS SULFATE 325 MG TAB PO SCH (07:53)
[2019-01-12] MEDS: SUCRALFATE 1 GM TAB PO SCH ×4 (07:53→20:06)
[2019-01-12] MEDS: LIDOCAINE 5% 1 PATCH TD SCH (07:54)
[2019-01-12] MEDS: THIAMINE HCL 100 MG TAB PO SCH (07:54)
[2019-01-12] MEDS: PANTOprazole 40 MG TAB PO SCH ×2 (07:54→20:06)
[2019-01-12] MEDS: LACTOBACILLUS ACIDOPHILUS (FLORANEX) TAB PO SCH (07:54)
[2019-01-12] MEDS: FOLIC ACID 1 MG TAB PO SCH (07:54)
[2019-01-12] MEDS: ACETAMINOPHEN 325 MG TAB PO PRN (11:28)
--- NOTE | 2019-01-12 15:47 | Hospitalist Progress Note ---
Date of Service January 12, 2019 Assessment & Plan (1) Alcohol withdrawal: -This is a 53 year old female with history of alcohol use and chronic back pain who presented on 01/04/19 because of worsening back discomfort at home with usual left leg weakness and incontinence symptoms as per patient; as per History and physical note, Patient resorted to alcohol consumption to alleviate pain because the Oxycodone prescription not covered by insurance -patient does not appear to be alcohol withdrawal during the hospital stay and completed gabapentin protocol -telemetry discontinued on 01/10/19 Alcohol Use disorder -management as above Alcoholic pancreatitis -admission CT ABD:The liver is cirrhotic in morphology with evidence of severe steatosis. Splenomegaly and a small volume of abdominopelvic ascites indicate portal hypertension. There are trace pleural effusions. The unenhanced pancreas is atrophic. Mild infiltration is questioned around the pancreatic head. Correlate clinically and with serum amylase/lipase levels for evidence of pancreatitis. Question mild wall thickening versus underdistention of the colon. Correlate clinically for evidence of a mild nonspecific colitis. Left-sided nephrolithiasis. Postoperative change is consistent with previous gastric bypass surgery. No bowel obstruction is seen. There are numerous compression deformities. Loss of height at L2 has significantly increased from 11/27/2018. Correlate for point tenderness. -Elevated lipase levels on admission -was treated with IV fluids -at this time it would appear that pancreatitis symptoms are resolved as patient's focus is back pain Lumbar radiculopathy Secondary to progression of lumbar compression fx from mechanical fall last month -Lumbar CT: Acute or subacute appearing 40% superior endplate compression deformity at L2 has progressed from 11/27/2018 and now demonstrates 3 mm retropu lsion resulting in mild central canal stenosis. No additional acute fracture or subluxation of the thoracic or lumbar spine.3. Degenerative and chronic appearing findings as above. -there are no current inpatient orthopedic plans for kyphoplasty and likely would not be done unless on outpatient boateng -Pain control, PT/OT Diarrhea/Colitis -Nonspecific colitis noted on CT scan -stool for C. difficile: Negative -Imodium PRN -no gross diarrhea at this time Chronic hyponatremia Alcoholic ketoacidosis -Hyponatremia and acidosis is resolved Severe hypophosphatemia Hypokalemia Hypomagnesemia -as of 01/10/19 these electrolytes are near or at goal Pancytopenia Neutropenia Severe thrombocytopenia Secondary to alcoholism -No acute bleeding issues -no evidence of infection Past tobacco use. DVT Px: SCDs Code Status Full code Disposition: patient's hospital disposition is complicated by history of nonadherence, alcohol use, and and general inability to function because of patient's subjective pain levels which prevents her from being able to perform for herself activities of daily living such as self bathing. materials management manager has made several referrals and medical doctor continues to await any non-hospital care centers that can care for patient Telemetry discontinued on 01/10/19 encourage patient to participate in PT/OT and ambulation as tolerated Subjective Patient seen and examined at bedside. She was able to demonstrate to medical doctor that she can use a walker without assistance. But she reports that she cannot go home because she cannot do activities of daily living in her current state with back pain such as self bathing. no headache. no dizziness. no fever. no vomiting. no abdominal pain. Review of Systems Review of Systems: All systems reviewed & are unremarkable except as noted in HPI & below Physical Exam Constitutional: cooperative Eyes: PERRL, conjunctivae normal, anicteric sclerae EOM intact bilaterally ENMT: external ear and nose normal, oropharynx normal Neck: normal visual inspection Respiratory: normal respiratory effort, lungs clear to auscultation Cardiovascular: RRR, no murmur, no edema Gastrointestinal (Abdomen): normal bowel sounds, soft, nontender, no hepatosplenomegaly Musculoskeletal: Head/Neck/Chest: normocephalic and head atraumatic Neurologic: PERRL, EOMI, accommodation nl, no face palsy, no dysarthria Psychiatric: Orientation: alert and oriented x 3 Results & Data Vital Signs (Past 12 Hours) Vital Signs Temp Pulse Resp BP Pulse Ox 01/12/19 15:28 37.3 C 72 16 102/65 97 01/12/19 07:36 37.0 C 75 17 162/99 H 96
[2019-01-13] MEDS: OXYCODONE HCL IR 5 MG TAB (IMMEDIATE RELEASE) PO PRN ×6 (02:01→22:06)
[2019-01-13] MEDS: PANCREAZE (LIPASE 10,500U) CAP PO SCH ×3 (08:44→16:13)
[2019-01-13] MEDS: SUCRALFATE 1 GM TAB PO SCH ×4 (08:44→20:24)
[2019-01-13] MEDS: CITALOPRAM 20 MG TAB PO SCH (08:45)
[2019-01-13] MEDS: THIAMINE HCL 100 MG TAB PO SCH (08:46)
[2019-01-13] MEDS: LACTOBACILLUS ACIDOPHILUS (FLORANEX) TAB PO SCH (08:46)
[2019-01-13] MEDS: PANTOprazole 40 MG TAB PO SCH ×2 (08:47→20:24)
[2019-01-13] MEDS: FERROUS SULFATE 325 MG TAB PO SCH (08:47)
[2019-01-13] MEDS: LIDOCAINE 5% 1 PATCH TD SCH (08:47)
[2019-01-13] MEDS: FOLIC ACID 1 MG TAB PO SCH (08:47)
[2019-01-13] MEDS: PROMETHAZINE HCL 12.5 MG in SODIUM CHLORIDE 0.9% 50 ML IV PRN (10:42)
--- NOTE | 2019-01-13 11:41 | Hospitalist Progress Note ---
Date of Service January 13, 2019 Assessment & Plan (1) Alcohol withdrawal: -This is a 53 year old female with history of alcohol use and chronic back pain who presented on 01/04/19 because of worsening back discomfort at home with usual left leg weakness and incontinence symptoms as per patient; as per History and physical note, Patient resorted to alcohol consumption to alleviate pain because the Oxycodone prescription not covered by insurance -patient does not appear to be alcohol withdrawal during the hospital stay and completed gabapentin protocol -telemetry discontinued on 01/10/19 Alcohol Use disorder -management as above Alcoholic pancreatitis -admission CT ABD:The liver is cirrhotic in morphology with evidence of severe steatosis. Splenomegaly and a small volume of abdominopelvic ascites indicate portal hypertension. There are trace pleural effusions. The unenhanced pancreas is atrophic. Mild infiltration is questioned around the pancreatic head. Correlate clinically and with serum amylase/lipase levels for evidence of pancreatitis. Question mild wall thickening versus underdistention of the colon. Correlate clinically for evidence of a mild nonspecific colitis. Left-sided nephrolithiasis. Postoperative change is consistent with previous gastric bypass surgery. No bowel obstruction is seen. There are numerous compression deformities. Loss of height at L2 has significantly increased from 11/27/2018. Correlate for point tenderness. -Elevated lipase levels on admission -was treated with IV fluids -at this time it would appear that pancreatitis symptoms are resolved as patient's focus is back pain Lumbar radiculopathy Secondary to progression of lumbar compression fx from mechanical fall last month -Lumbar CT: Acute or subacute appearing 40% superior endplate compression deformity at L2 has progressed from 11/27/2018 and now demonstrates 3 mm retropu lsion resulting in mild central canal stenosis. No additional acute fracture or subluxation of the thoracic or lumbar spine.3. Degenerative and chronic appearing findings as above. -there are no current inpatient orthopedic plans for kyphoplasty and likely would not be done unless on outpatient boateng -Pain control, PT/OT -patient has been able to demonstrate that she can ambulate with walker but in sists that she cannot perform daily activities of living at home by herself Diarrhea/Colitis -Nonspecific colitis noted on CT scan -stool for C. difficile: Negative -Imodium PRN -no gross diarrhea at this time Chronic hyponatremia Alcoholic ketoacidosis -Hyponatremia and acidosis is resolved Severe hypophosphatemia Hypokalemia Hypomagnesemia -as of 01/10/19 these electrolytes are near or at goal -will recheck labs on 01/14/19 Pancytopenia Neutropenia Severe thrombocytopenia Secondary to alcoholism -No acute bleeding issues -no evidence of infection -will recheck labs on 01/14/19 Past tobacco use. DVT Px: SCDs Code Status Full code Disposition: patient's hospital disposition is complicated by history of nonadherence, alcohol use, and and general inability to function because of p atlisandro's subjective pain levels which prevents her from being able to perform for herself activities of daily living such as self bathing. investment manager has made several referrals and medical doctor continues to await any non-hospital care centers that can care for patient Telemetry discontinued on 01/10/19 encourage patient to participate in PT/OT and ambulation as tolerated Subjective Patient examined. She was awoken. Remained laying sideways to sleep after agreed for medical doctor to perform rudimentary physical exam. patient did not report of pain. she returned to sleep after saying that the family preservation caseworker had not come by to speak with her recently Review of Systems Review of Systems: All systems reviewed & are unremarkable except as noted in HPI & below Physical Exam Constitutional: cooperative Eyes: EOM intact bilaterally ENMT: external ear and nose normal, oropharynx normal Neck: normal visual inspection Respiratory: normal respiratory effort, lungs clear to auscultation Cardiovascular: RRR, no murmur, no edema Gastrointestinal (Abdomen): Inspection/Auscultation: normal bowel sounds Percussion/Palpation: abdomen soft Musculoskeletal: Head/Neck/Chest: normocephalic and head atraumatic Psychiatric: Orientation: alert and oriented x 3 Results & Data Vital Signs (Past 12 Hours) Vital Signs Temp Pulse Resp BP Pulse Ox 01/13/19 07:39 36.7 C 78 18 109/65 96
[2019-01-13] MEDS ORDERED: CEFEPIME 2,000 MG in SYRINGE 7.5 ML IV STA (15:46)
--- NOTE | 2019-01-13 15:59 | XRay Report ---
XR chest 1V portable CLINICAL HISTORY: reported fever. rule out pneumonia dyspnea COMPARISON STUDY: 01/04/2019 FINDINGS: The bones soft tissues and hemidiaphragms are normal. The cardiomediastinal silhouette is n ormal. The lungs are clear. The pulmonary vasculature is normal. IMPRESSION: Negative chest. The above report was generated using voice recognition software. It may contain grammatical, syntax or spelling errors. Electronically signed by: Mj Smith M.D. 01/13/2019 3:58 PM
[2019-01-13] MEDS: ACETAMINOPHEN 325 MG TAB PO PRN ×2 (16:09→22:09)
[2019-01-13 16:50] LABS: Albumin Level 2.7 gm/dl (3.4-5.0); BUN Creatinine Ratio 27.3 (10-20); Bilirubin,Total 1.1 mg/dl (0.2-1); C Reactive Protein 0.5 mg/dl (0-0.29); Calcium 8.1 mg/dl (8.5-10.1); Est GFR (African American) 119.1; Est GFR (Non-African American) 102.8; Globulin 2.8 gm/dl (2.5-4.0); Potassium 3.4 mmol/L (3.5-5.1); Total Protein 5.5 gm/dl (6.4-8.2)
[2019-01-13 17:13] LABS: Hematocrit (blood only) 25.2 % (37-47); Hemoglobin 7.6 g/dL (12.0-16.0); Mean Corpuscular Hemoglobin 23.4 pg (25-34); Mean Corpuscular Hgb Conc 30.2 g/dL (32-36); Mean Corpuscular Volume 77.5 fL (80-100); Platelet Count 81 K/uL (130-400); RDW Coefficient of Variation 26.6 % (11.5-14.5); RDW Standard Deviation 71.1 fL (36.4-46.3); Red Blood Count 3.25 M/uL (4.2-5.4)
[2019-01-13 17:16] LABS: Toxic Vacuolation 1+
[2019-01-13 17:17] LABS: Anisocytosis Present; Basophils # (auto) 0.01 K/uL (0-0.2); Basophils % (auto) 1.1 %; Echinocytes 1+; Giant Platelets 1+; Hypochromasia Present; Lymphocytes # (auto) 0.04 K/uL (1.2-3.4); Lymphocytes % (auto) 4.4 %; Monocytes # (auto) 0.05 K/uL (0.11-0.59); Monocytes % (auto) 5.6 %; Neutrophils % (auto) 88.9 %; Platelet Estimate Decreased (Normal)
[2019-01-13 17:27] LABS: Appearance Urine Cloudy (Clear); Bacteria Urine Automated Negative (Negative); Blood Urine Negative (Negative); Color Urine Dark Yellow; Epithelial Cell Urine Auto >30 /lpf (0-5); Glucose Urine UA Negative (Negative); Ketones Urine Trace (Negative); Leukocyte Esterase Urine Trace (Negative); Nitrite Urine Negative (Negative); Protein Urine Negative (Negative); Specific Gravity Urine 1.014 (1.000-1.030); Urobilinogen Urine Negative (Negative); pH Urine 6.5 (4.5-7.5)
[2019-01-13 17:34] LABS: Influenza A virus by PCR Neg for Influ A (Neg); Influenza B virus by PCR Neg for Influ B (Neg)
[2019-01-13 17:45] LABS: Bilirubin Urine 1+ (Negative)
[2019-01-13 17:47] LABS: Ictotest Urine Positive (Negative)
[2019-01-13 18:02] LABS: Mucus Urine Present (None Prsent); RBC Urine Automated 0-4 /hpf (0-4)
[2019-01-13] MEDS: SODIUM CHLORIDE 0.9% 1000ML 1,000 ML IV SCH (18:32)
[2019-01-13] MEDS: CEFEPIME 2,000 MG in SYRINGE 7.5 ML IV SCH (23:53)
[2019-01-14] MEDS: OXYCODONE HCL IR 5 MG TAB (IMMEDIATE RELEASE) PO PRN ×6 (02:09→22:07)
[2019-01-14] MEDS: ACETAMINOPHEN 325 MG TAB PO PRN ×2 (06:09→12:05)
[2019-01-14] MEDS: SODIUM CHLORIDE 0.9% 1000ML 1,000 ML IV SCH (07:33)
[2019-01-14] MEDS: PANCREAZE (LIPASE 10,500U) CAP PO SCH ×3 (07:34→16:27)
[2019-01-14] MEDS: SUCRALFATE 1 GM TAB PO SCH ×4 (07:34→21:03)
[2019-01-14] MEDS ORDERED: PIPERACILLIN/TAZOBACTAM 4.5 GM in DEXTROSE 5% 100 ML IV STA (08:15)
[2019-01-14] MEDS ORDERED: PIPERACILL/TAZOBAC CONSULT ACTIVE PRN (08:15)
[2019-01-14 08:16] LABS: Mean Corpuscular Hgb Conc 30.6 g/dL (32-36)
[2019-01-14] MEDS ORDERED: PIPERACILLIN/TAZOBACTAM 3.375 GM in DEXTROSE 5% 100 ML IV ONE (08:30)
[2019-01-14 08:48] LABS: Albumin Level 2.3 gm/dl (3.4-5.0); BUN Creatinine Ratio 35.6 (10-20); Calcium 7.6 mg/dl (8.5-10.1); Creatinine Clr Calc Pharmacy 104.8 ml/min; Est GFR (African American) 124.8; Est GFR (Non-African American) 107.6; Magnesium 1.4 mg/dl (1.8-2.4); Potassium 3.3 mmol/L (3.5-5.1)
[2019-01-14 08:51] LABS: Albumin Globulin Ratio 0.8 (0.9-2); Bilirubin,Total 1.2 mg/dl (0.2-1); Globulin 2.9 gm/dl (2.5-4.0); Phosphorus 2.4 mg/dl (2.5-4.9); Total Protein 5.2 gm/dl (6.4-8.2)
[2019-01-14] MEDS: FERROUS SULFATE 325 MG TAB PO SCH (08:53)
[2019-01-14] MEDS: PANTOprazole 40 MG TAB PO SCH ×2 (08:53→21:04)
[2019-01-14] MEDS: THIAMINE HCL 100 MG TAB PO SCH (08:53)
[2019-01-14] MEDS: LACTOBACILLUS ACIDOPHILUS (FLORANEX) TAB PO SCH (08:54)
[2019-01-14] MEDS: CITALOPRAM 20 MG TAB PO SCH (08:54)
[2019-01-14] MEDS: LIDOCAINE 5% 1 PATCH TD SCH (08:54)
[2019-01-14] MEDS: FOLIC ACID 1 MG TAB PO SCH (08:54)
[2019-01-14 09:07] LABS: Hematocrit (blood only) 24.5 % (37-47); Hemoglobin 7.5 g/dL (12.0-16.0); Mean Corpuscular Hemoglobin 23.9 pg (25-34); RDW Coefficient of Variation 26.3 % (11.5-14.5); RDW Standard Deviation 69.9 fL (36.4-46.3); Red Blood Count 3.14 M/uL (4.2-5.4); White Blood Count 2.22 K/uL (4.8-10.8)
[2019-01-14 09:14] LABS: Anisocytosis Present; Basophilic Stippling 1+; Basophils # (auto) 0.01 K/uL (0-0.2); Basophils % (auto) 0.5 %; Eosinophils # (auto) 0.02 K/uL (0-0.5); Eosinophils % (auto) 0.9 %; Giant Platelets 1+; Hypochromasia Present; Immature Granulocytes # (auto) 0.02 K/uL (0.00-0.02); Immature Granulocytes % (auto) 0.9 %; Lymphocytes # (auto) 0.15 K/uL (1.2-3.4); Lymphocytes % (auto) 6.8 %; Mean Platelet Volume 9.8 fL (7.4-10.4); Microcytosis Present; Monocytes # (auto) 0.17 K/uL (0.11-0.59); Monocytes % (auto) 7.7 %; Neutrophils # (auto) 1.85 K/uL (1.4-6.5); Neutrophils % (auto) 83.2 %; Platelet Count 90 K/uL (130-400); Platelet Estimate Decreased (Normal); Poikilocytosis Present
[2019-01-14] MEDS: LOPERAMIDE HCL 2 MG CAP PO PRN ×4 (10:08→23:29)
[2019-01-14] MEDS: PIPERACILLIN/TAZOBACTAM 3.375 GM in DEXTROSE 5% 100 ML IV SCH ×2 (13:46→21:10)
--- NOTE | 2019-01-14 14:08 | Hospitalist Progress Note ---
Date of Service January 14, 2019 Assessment & Plan (1) Alcohol withdrawal: -This is a 53 year old female with history of alcohol use and chronic back pain who presented on 01/04/19 because of worsening back discomfort at home with usual left leg weakness and incontinence symptoms as per patient; as per History and physical note, Patient resorted to alcohol consumption to alleviate pain because the Oxycodone prescription not covered by insurance -patient does not appear to be alcohol withdrawal during the hospital stay and completed gabapentin protocol -telemetry discontinued on 01/10/19 Alcohol Use disorder -management as above Alcoholic ketoacidosis on admission resolved Alcoholic pancreatitis -admission CT ABD:The liver is cirrhotic in morphology with evidence of severe steatosis. Splenomegaly and a small volume of abdominopelvic ascites indicate portal hypertension. There are trace pleural effusions. The unenhanced pancreas is atrophic. Mild infiltration is questioned around the pancreatic head. Correlate clinically and with serum amylase/lipase levels for evidence of pancreatitis. Question mild wall thickening versus underdistention of the colon. Correlate clinically for evidence of a mild nonspecific colitis. Left-sided nephrolithiasis. Postoperative change is consistent with previous gastric bypass surgery. No bowel obstruction is seen. There are numerous compression deformities. Loss of height at L2 has significantly increased from 11/27/2018. Correlate for point tenderness. -Elevated lipase levels on admission -was treated with IV fluids -at this time it would appear that pancreatitis symptoms are resolved as patient's focus is back pain Lumbar radiculopathy Secondary to progression of lumbar compression fx from mechanical fall last month -Lumbar CT: Acute or subacute appearing 40% superior endplate compression deformity at L2 has progressed from 11/27/2018 and now demonstrates 3 mm retropulsion resulting in mild central canal stenosis. No additional acute fracture or subluxation of the thoracic or lumbar spine. Degenerative and chronic appearing findings as above. -there are no current inpatient orthopedic plans for kyphoplasty and likely would not be done unless on outpatient boateng -Pain control, PT/OT -patient has been able to demonstrate that she can ambulate with walker but insists that she cannot perform daily activities of living at home by herself such as self bathing Pancytopenia Neutropenia Severe thrombocytopenia Secondary to alcoholism -No acute bleeding issues -no evidence of infection -will recheck labs on 01/14/19 Neutropenic fever -Patient developed fever of 38.6 celsius on 01/13/19 afternoon -patient was given IV fluids and started on Cefepime starting on 01/13/19 -Patient was transitioned on Zosyn as infectious workup remarkable for bacteria in the urine and patient has had in the ESBL with resistance to cefepime Diarrhea/Colitis -Nonspecific colitis noted on admission CT scan -01/06/19 and 01/14/19 stool are negative for C. difficile -Imodium PRN Hypophosphatemia Hypokalemia Hypomagnesemia -serum phosphorous was initially less than 2 from admission, this was treated. serum phosphorous 2.4 on 01/14/19, give phosphorous supplements -serum potassium 3.3 by 01/14/19: give supplements and repeat labs -serum magnesium 1.4 by : give supplements and repeat labs Hyponatremia, on admission -current serum sodium is normal range Past tobacco use. DVT Px: SCDs Code Status Full code Subjective Patient seen and examined this AM. Patient has fevers starting yesterday. She feels subjectively improved today. Appears to have good energy. Awake and alert and speaking in full sentences. Denies shortness of breath or cough. no chest pain. no abdomen pain. no vomiting. she reported 2 loose bowel movements earlier that was attributed to recent antibiotics. Review of Systems Review of Systems: All systems reviewed & are unremarkable except as noted in HPI & below Physical Exam Constitutional: cooperative Eyes: PERRL, conjunctivae normal, anicteric sclerae EOM intact bilaterally ENMT: external ear and nose normal, oropharynx normal Neck: normal visual inspection Respiratory: normal respiratory effort, lungs clear to auscultation Cardiovascular: RRR, no murmur, no edema Gastrointestinal (Abdomen): normal bowel sounds, soft, nontender, no hepatosplenomegaly Inspection/Auscultation: normal bowel sounds Percussion/Palpation: abdomen soft Musculoskeletal: Head/Neck/Chest: normocephalic and head atraumatic Neurologic: PERRL, EOMI, accommodation nl, no face palsy, no dysarthria Psychiatric: Orientation: alert and oriented x 3 Results & Data Vital Signs (Past 12 Hours) Vital Signs Temp Pulse Resp BP Pulse Ox 01/14/19 10:36 36.8 C 01/14/19 07:29 38.1 C H 94 H 16 93/58 L 97
[2019-01-14] MEDS ORDERED: POTASSIUM CHLORIDE 20 MEQ TABCR PO STA (15:21)
[2019-01-14] MEDS ORDERED: MAGNESIUM OXIDE 400 MG TAB PO STA (15:21)
[2019-01-14] MEDS ORDERED: SODIUM CHLORIDE 0.9% 1000ML 250 ML IV ONE (15:22)
[2019-01-14] MEDS ORDERED: POTASSIUM CHLORIDE / WTR 10 MEQ/100 ML PLCT IV ONE (16:00)
[2019-01-14] MEDS: MAGNESIUM SULFATE / D5W 1 GM/100 ML BAG IV SCH ×3 (16:21→18:29)
[2019-01-14] MEDS: POT PHOSPHATE MONOBASIC W/ SOD TAB PO SCH ×2 (16:26→21:04)
[2019-01-14] MEDS: CEFEPIME 2,000 MG in SYRINGE 7.5 ML IV SCH (16:49)
[2019-01-14 20:40] LABS: BUN Creatinine Ratio 29.4 (10-20); Calcium 7.6 mg/dl (8.5-10.1); Creatinine Clr Calc Pharmacy 97.4 ml/min; Est GFR (African American) 121.8; Est GFR (Non-African American) 105.1; Magnesium 2.7 mg/dl (1.8-2.4); Potassium 3.9 mmol/L (3.5-5.1)
[2019-01-14] MEDS: MAGNESIUM OXIDE 400 MG TAB PO SCH (21:03)
[2019-01-15] MEDS: OXYCODONE HCL IR 5 MG TAB (IMMEDIATE RELEASE) PO PRN ×5 (02:02→21:50)
[2019-01-15] MEDS: PIPERACILLIN/TAZOBACTAM 3.375 GM in DEXTROSE 5% 100 ML IV SCH ×2 (05:55→13:58)
[2019-01-15] MEDS: LOPERAMIDE HCL 2 MG CAP PO PRN (05:59)
[2019-01-15 06:59] LABS: Mean Corpuscular Hgb Conc 30.3 g/dL (32-36)
[2019-01-15 07:05] LABS: Hematocrit (blood only) 24.4 % (37-47); Hemoglobin 7.4 g/dL (12.0-16.0); Mean Corpuscular Hemoglobin 23.6 pg (25-34); RDW Coefficient of Variation 25.5 % (11.5-14.5); RDW Standard Deviation 69.3 fL (36.4-46.3); Red Blood Count 3.13 M/uL (4.2-5.4); White Blood Count 1.78 K/uL (4.8-10.8)
[2019-01-15 07:24] LABS: Platelet Count 85 K/uL (130-400)
[2019-01-15 07:25] LABS: Anisocytosis Present; Basophils # (auto) 0.02 K/uL (0-0.2); Basophils % (auto) 1.1 %; Dohle Bodies 1+; Eosinophils # (auto) 0.02 K/uL (0-0.5); Eosinophils % (auto) 1.1 %; Giant Platelets 1+; Immature Granulocytes # (auto) 0.01 K/uL (0.00-0.02); Immature Granulocytes % (auto) 0.6 %; Lymphocytes # (auto) 0.31 K/uL (1.2-3.4); Lymphocytes % (auto) 17.4 %; Monocytes # (auto) 0.23 K/uL (0.11-0.59); Monocytes % (auto) 12.9 %; Neutrophils # (auto) 1.19 K/uL (1.4-6.5); Neutrophils % (auto) 66.9 %; Platelet Estimate Decreased (Normal); Poikilocytosis Present
[2019-01-15 07:46] LABS: BUN Creatinine Ratio 28.8 (10-20); Calcium 7.7 mg/dl (8.5-10.1); Creatinine Clr Calc Pharmacy 123.4 ml/min; Est GFR (African American) 131.7; Est GFR (Non-African American) 113.6; Magnesium 2.1 mg/dl (1.8-2.4); Potassium 3.1 mmol/L (3.5-5.1)
[2019-01-15] MEDS: CITALOPRAM 20 MG TAB PO SCH (07:55)
[2019-01-15] MEDS: LIDOCAINE 5% 1 PATCH TD SCH (07:55)
[2019-01-15] MEDS: SUCRALFATE 1 GM TAB PO SCH ×4 (07:55→21:49)
[2019-01-15] MEDS: PANCREAZE (LIPASE 10,500U) CAP PO SCH ×3 (07:55→16:05)
[2019-01-15] MEDS: PANTOprazole 40 MG TAB PO SCH ×2 (07:58→21:49)
[2019-01-15] MEDS: LACTOBACILLUS ACIDOPHILUS (FLORANEX) TAB PO SCH (07:58)
[2019-01-15] MEDS ORDERED: POTASSIUM CHLORIDE 20 MEQ TABCR PO STA (08:42)
[2019-01-15] MEDS: POTASSIUM CHLORIDE / WTR 10 MEQ/100 ML PLCT IV SCH ×2 (09:11→10:24)
[2019-01-15] MEDS: FERROUS SULFATE 325 MG TAB PO SCH (11:36)
[2019-01-15] MEDS: FOLIC ACID 1 MG TAB PO SCH (11:36)
[2019-01-15] MEDS: POT PHOSPHATE MONOBASIC W/ SOD TAB PO SCH ×2 (11:37→12:12)
[2019-01-15] MEDS: MAGNESIUM OXIDE 400 MG TAB PO SCH ×2 (11:37→21:49)
[2019-01-15] MEDS: THIAMINE HCL 100 MG TAB PO SCH (11:37)
[2019-01-15] MEDS: PROMETHAZINE HCL 12.5 MG/10 ML UDP PO PRN (13:59)
--- NOTE | 2019-01-15 15:36 | Orthopedic Progress Note ---
Date of Service January 15, 2019 Assessment & Plan (1) Exacerbation of chronic back pain: Images reviewed Assessment total medical issues alcoholic withdrawal pancytopenia. He does have an L2 compression deformity and pain Plan Patient needs to be stabilized medically which she looks like thus far she is. Needs to get out of the hospital either home or with rehab facility. He needs to be assessed as an outpatient for possible kyphoplasty procedure. I would gladly see her as an outpatient. She also needs to stay alcohol free. Present on Admission?: Yes Subjective Patient is alert oriented moderate complaints of pain. Stable emotionally Review of Systems Respiratory: No fever sweats chills moderate back pain logical deficit Results & Data Vital Signs (Past 12 Hours) Vital Signs Temp Pulse Resp BP Pulse Ox 01/15/19 15:09 36.9 C 71 20 116/75 96 01/15/19 07:29 36.9 C 71 18 104/65 95 PG Care Time/CCT Total # of Minutes Spent Total Time Spent with Patient: Total time spent is greater than 50% in coordination of care (as documented) at patient's floor/unit and/or counseling patient:
--- NOTE | 2019-01-15 16:03 | Hospitalist Progress Note ---
Date of Service January 15, 2019 Assessment & Plan (1) Alcohol withdrawal: -This is a 53 year old female with history of alcohol use and chronic back pain who presented on 01/04/19 because of worsening back discomfort at home with usual left leg weakness and incontinence symptoms as per patient; as per History and physical note, Patient resorted to alcohol consumption to alleviate pain because the Oxycodone prescription not covered by insurance -patient does not appear to be alcohol withdrawal during the hospital stay and completed gabapentin protocol -telemetry discontinued on 01/10/19 Alcohol Use disorder -management as above Alcoholic ketoacidosis on admission resolved Alcoholic pancreatitis -admission CT ABD:The liver is cirrhotic in morphology with evidence of severe steatosis. Splenomegaly and a small volume of abdominopelvic ascites indicate portal hypertension. There are trace pleural effusions. The unenhanced pancreas is atrophic. Mild infiltration is questioned around the pancreatic head. Correlate clinically and with serum amylase/lipase levels for evidence of pancreatitis. Question mild wall thickening versus underdistention of the colon. Correlate clinically for evidence of a mild nonspecific colitis. Left-sided nephrolithiasis. Postoperative change is consistent with previous gastric bypass surgery. No bowel obstruction is seen. There are numerous compression deformities. Loss of height at L2 has significantly increased from 11/27/2018. Correlate for point tenderness. -Elevated lipase levels on admission -was treated with IV fluids -at this time it would appear that pancreatitis symptoms are resolved as patient's focus is back pain Lumbar radiculopathy Secondary to progression of lumbar compression fx from mechanical fall last month -Lumbar CT: Acute or subacute appearing 40% superior endplate compression deformity at L2 has progressed from 11/27/2018 and now demonstrates 3 mm retropulsion resulting in mild central canal stenosis. No additional acute fracture or subluxation of the thoracic or lumbar spine. Degenerative and chronic appearing findings as above. -there are no current inpatient orthopedic plans for kyphoplasty and likely would not be done unless on outpatient boateng -Pain control, PT/OT -patient has been able to demonstrate that she can ambulate with walker but insists that she cannot perform daily activities of living at home by herself such as self bathing Pancytopenia Neutropenia Severe thrombocytopenia Secondary to alcoholism -No acute bleeding issues Neutropenic fever -Patient developed fever of 38.6 celsius on 01/13/19 afternoon -patient was given IV fluids and started on Cefepime starting on 01/13/19 -Patient was transitioned on Zosyn as infectious workup remarkable for bacteria in the urine and patient has had in the ESBL with resistance to cefepime -01/15/19: Patient reports more diarrhea which she attributes to the antibiotics. No fevers today. Discussed with patient that current blood cultures are not finalized but there are pansensitive bacteria in the urine. will stop Zosyn on 01/15/19 and plan transition to ceftriaxone on 01/16/19. Patient got additional potassium supplements and phosphorous supplements. Because patient's blood counts are generally low, will avoid frequent blood draws so recheck on 01/16/19 AM labs Diarrhea/Colitis -Nonspecific colitis noted on admission CT scan -01/06/19 and 01/14/19 stool are negative for C. difficile -Imodium PRN Hypophosphatemia Hypokalemia Hypomagnesemia -serum phosphorous was initially less than 2 from admission, this was treated. serum phosphorous 2.4 on 01/14/19, give phosphorous supplements -serum potassium 3.3 by 01/14/19: give supplements and repeat labs -serum magnesium 1.4 by : give supplements and repeat labs Hyponatremia, on admission -current serum sodium is normal range Past tobacco use. DVT Px: SCDs Code Status Full code Subjective Patient reports more diarrhea which she attributes to the antibiotics. No fevers today. Discussed with patient that current blood cultures are not finalized but there are pansensitive bacteria in the urine. will stop Zosyn on 01/15/19 and plan transition to ceftriaxone on 01/16/19. Patient got additional potassium supplements and phosphorous supplements. Because patient's blood counts are generally low, will avoid frequent blood draws so recheck on 01/16/19 AM labs Patient agrees to the plan. no abdomen pain. no vomiting. no nausea. no diz ziness, breathing on room air Review of Systems Review of Systems: All systems reviewed & are unremarkable except as noted in HPI & below Physical Exam Constitutional: cooperative Eyes: PERRL, conjunctivae normal, anicteric sclerae EOM intact bilaterally ENMT: external ear and nose normal, oropharynx normal Neck: normal visual inspection Respiratory: normal respiratory effort, lungs clear to auscultation Cardiovascular: RRR, no murmur, no edema Gastrointestinal (Abdomen): normal bowel sounds, soft, nontender, no hepatosplenomegaly Musculoskeletal: Head/Neck/Chest: normocephalic and head atraumatic Neurologic: PERRL, EOMI, accommodation nl, no face palsy, no dysarthria Psychiatric: Orientation: alert and oriented x 3 Results & Data Vital Signs (Past 12 Hours) Vital Signs Temp Pulse Resp BP Pulse Ox 01/15/19 15:09 36.9 C 71 20 116/75 96 01/15/19 07:29 36.9 C 71 18 104/65 95
[2019-01-15] MEDS: cefTRIAXone SODIUM 1,000 MG in DEXTROSE 5% 50 ML IV SCH (17:55)
[2019-01-16] MEDS: OXYCODONE HCL IR 5 MG TAB (IMMEDIATE RELEASE) PO PRN ×6 (02:07→21:54)
[2019-01-16] MEDS: LOPERAMIDE HCL 2 MG CAP PO PRN ×2 (02:07→18:03)
[2019-01-16 07:32] LABS: Mean Corpuscular Hgb Conc 30.2 g/dL (32-36); Nucleated RBC # (auto) 0.02 K/uL (0-0)
[2019-01-16 07:38] LABS: Hematocrit (blood only) 26.5 % (37-47); Mean Corpuscular Hemoglobin 23.1 pg (25-34); Mean Corpuscular Volume 76.4 fL (80-100); RDW Coefficient of Variation 25.6 % (11.5-14.5); RDW Standard Deviation 68.5 fL (36.4-46.3); Red Blood Count 3.47 M/uL (4.2-5.4); White Blood Count 1.88 K/uL (4.8-10.8)
[2019-01-16] MEDS: CITALOPRAM 20 MG TAB PO SCH (07:58)
[2019-01-16] MEDS: SUCRALFATE 1 GM TAB PO SCH ×4 (07:59→21:54)
[2019-01-16] MEDS: LACTOBACILLUS ACIDOPHILUS (FLORANEX) TAB PO SCH (07:59)
[2019-01-16] MEDS: LIDOCAINE 5% 1 PATCH TD SCH (08:00)
[2019-01-16] MEDS: FOLIC ACID 1 MG TAB PO SCH (08:00)
[2019-01-16 08:01] LABS: Anisocytosis Present; Basophils # (auto) 0.03 K/uL (0-0.2); Basophils % (auto) 1.6 %; Dohle Bodies 1+; Eosinophils # (auto) 0.02 K/uL (0-0.5); Eosinophils % (auto) 1.1 %; Giant Platelets 1+; Hypochromasia Present; Immature Granulocytes # (auto) 0.01 K/uL (0.00-0.02); Immature Granulocytes % (auto) 0.5 %; Lymphocytes # (auto) 0.44 K/uL (1.2-3.4); Lymphocytes % (auto) 23.4 %; Monocytes # (auto) 0.27 K/uL (0.11-0.59); Monocytes % (auto) 14.4 %; Neutrophils # (auto) 1.11 K/uL (1.4-6.5); Platelet Count 92 K/uL (130-400); Platelet Estimate Decreased (Normal); Poikilocytosis Present
[2019-01-16] MEDS: PANCREAZE (LIPASE 10,500U) CAP PO SCH ×3 (08:01→16:37)
[2019-01-16] MEDS: THIAMINE HCL 100 MG TAB PO SCH (08:01)
[2019-01-16] MEDS: MAGNESIUM OXIDE 400 MG TAB PO SCH ×2 (08:04→21:54)
[2019-01-16] MEDS: PANTOprazole 40 MG TAB PO SCH ×2 (08:04→21:54)
[2019-01-16 08:09] LABS: Albumin Level 2.4 gm/dl (3.4-5.0); BUN Creatinine Ratio 20.4 (10-20); Calcium 8.4 mg/dl (8.5-10.1); Creatinine Clr Calc Pharmacy 138.8 ml/min; Est GFR (African American) 136.9; Est GFR (Non-African American) 118.1; Magnesium 1.5 mg/dl (1.8-2.4); Potassium 3.6 mmol/L (3.5-5.1)
[2019-01-16 08:10] LABS: Albumin Globulin Ratio 0.8 (0.9-2); Bilirubin,Total 0.5 mg/dl (0.2-1); Globulin 3.2 gm/dl (2.5-4.0); Phosphorus 2.4 mg/dl (2.5-4.9); Total Protein 5.6 gm/dl (6.4-8.2)
[2019-01-16] MEDS ORDERED: POTASSIUM PHOS 3 MMOL/1 ML INFUSION IV STA (08:28)
[2019-01-16] MEDS ORDERED: POTASSIUM PHOSPHATE 15 MMOL in SODIUM CHLORIDE 0.9% 250 ML IV ONE (08:45)
[2019-01-16] MEDS: MAGNESIUM SULFATE / D5W 1 GM/100 ML BAG IV SCH ×2 (08:51→09:49)
[2019-01-16] MEDS: FERROUS SULFATE 325 MG TAB PO SCH (11:02)
--- NOTE | 2019-01-16 11:19 | Hospitalist Progress Note ---
Date of Service January 16, 2019 Assessment & Plan (1) Alcohol withdrawal: -This is a 53 year old female with history of alcohol use and chronic back pain who presented on 01/04/19 because of worsening back discomfort at home with usual left leg weakness and incontinence symptoms as per patient; as per History and physical note, Patient resorted to alcohol consumption to alleviate pain because the Oxycodone prescription not covered by insurance -patient does not appear to be alcohol withdrawal during the hospital stay and completed gabapentin protocol -telemetry discontinued on 01/10/19 Alcohol Use disorder -management as above Alcoholic ketoacidosis on admission resolved Alcoholic pancreatitis -admission CT ABD:The liver is cirrhotic in morphology with evidence of severe steatosis. Splenomegaly and a small volume of abdominopelvic ascites indicate portal hypertension. There are trace pleural effusions. The unenhanced pancreas is atrophic. Mild infiltration is questioned around the pancreatic head. Correlate clinically and with serum amylase/lipase levels for evidence of pancreatitis. Question mild wall thickening versus underdistention of the colon. Correlate clinically for evidence of a mild nonspecific colitis. Left-sided nephrolithiasis. Postoperative change is consistent with previous gastric bypass surgery. No bowel obstruction is seen. There are numerous compression deformities. Loss of height at L2 has significantly increased from 11/27/2018. Correlate for point tenderness. -Elevated lipase levels on admission -was treated with IV fluids -the pancreatitis symptoms are resolved as patient's focus is back pain Lumbar radiculopathy Secondary to progression of lumbar compression fx from mechanical fall last month -Lumbar CT: Acute or subacute appearing 40% superior endplate compression deformity at L2 has progressed from 11/27/2018 and now demonstrates 3 mm retropulsion resulting in mild central canal stenosis. No additional acute fracture or subluxation of the thoracic or lumbar spine. Degenerative and chronic appearing findings as above. -there are no current inpatient orthopedic plans for kyphoplasty and likely would not be done unless on outpatient boateng -Pain control, PT/OT -patient has been able to demonstrate that she can ambulate with walker but insists that she cannot perform daily activities of living at home by herself such as self bathing Pancytopenia Neutropenia Severe thrombocytopenia Secondary to alcoholism -No acute bleeding issues Neutropenic fever -Patient developed fever of 38.6 celsius on 01/13/19 afternoon -patient was given IV fluids and started on Cefepime starting on 01/13/19 -Patient was transitioned on Zosyn as infectious workup remarkable for bacteria in the urine and patient has had in the ESBL with resistance to cefepime -01/15/19: Patient reports more diarrhea which she attributes to the antibiotics. No fevers today. Discussed with patient that current blood cultures are not finalized but there are pansensitive bacteria in the urine. will stop Zosyn on 01/15/19 and plan transition to ceftriaxone on 01/15/19 at 6PM. Patient got additional potassium supplements and phosphorous supplements. Because patient's blood counts are generally low, will avoid frequent blood draws so recheck on 01/16/19 AM labs 01/16/19: Patient seen and examined at bedside. Reported diarrhea previously since yesterday. Patient reported vomiting since previously seen yesterday. IV potassium phosphate running. no abdomen pain. no fevers. discussed with patient about discontinuing antibiotic (ceftriaxone) after today and see if any more fevers and to limit diarrhea. C.difficile tests to date are negative. -the plan for 01/17/19 is to monitor for fevers off antibiotics Diarrhea/Colitis -Nonspecific colitis noted on admission CT scan -01/06/19 and 01/14/19 stool are negative for C. difficile -Imodium PRN Hypophosphatemia Hypokalemia Hypomagnesemia -serum phosphorous was initially less than 2 from admission, this was treated. serum phosphorous 2.4 on 01/14/19, given phosphorous supplements, additional potassium phosphate given on 01/16/19 -serum potassium 3.3 by 01/14/19: give supplements and repeat labs of serum potassium 3.7 on 01/16/19 -serum magnesium 1.4 by : give supplements and repeat labs now normalized, continue oral magnesium Hyponatremia, on admission -current serum sodium is normal range Past tobacco use. DVT Px: SCDs Code Status Full code Subjective Patient seen and examined at bedside. Reported diarrhea previously since yesterday. Patient reported vomiting since previously seen yesterday. IV potassium phosphate running. no abdomen pain. no fevers. discussed with patient about discontinuing antibiotic after today and see if any more fevers. no shortness of breath, no chest pain, no dizziness. Review of Systems Review of Systems: All systems reviewed & are unremarkable except as noted in HPI & below Physical Exam Constitutional: cooperative Eyes: PERRL, conjunctivae normal, anicteric sclerae EOM intact bilaterally ENMT: external ear and nose normal, oropharynx normal Neck: normal visual inspection Respiratory: normal respiratory effort, lungs clear to auscultation Cardiovascular: RRR, no murmur, no edema Gastrointestinal (Abdomen): normal bowel sounds, soft, nontender, no hepatosplenomegaly Inspection/Auscultation: normal bowel sounds Percussion/Palpation: abdomen soft Musculoskeletal: Head/Neck/Chest: normocephalic and head atraumatic Neurologic: PERRL, EOMI, accommodation nl, no face palsy, no dysarthria Psychiatric: Orientation: alert and oriented x 3 Results & Data Vital Signs (Past 12 Hours) Vital Signs Temp Pulse Resp BP Pulse Ox 01/16/19 07:00 37.1 C 66 18 136/77 96
[2019-01-16] MEDS: cefTRIAXone SODIUM 1,000 MG in DEXTROSE 5% 50 ML IV SCH (17:58)
--- NOTE | 2019-01-16 21:17 | Ultrasound Report ---
US venous doppler UE RT HISTORY: 53 years-old Female rule out Thrombophlebitis acute pain and swelling of the right upper ex tremity COMPARISON: None available TECHNIQUE: Multiple real-time sonographic images of the right upper extremity deep venous structures were obtained assessing grayscale appearance, color and spectral flow FINDINGS: Normal flow, compressibility, phasicity and augmentation of the right upper extremity deep venous str uctures. Occlusive superficial venous thrombosis is noted within the medial forearm within the area o f clinical concern, possibly a branch of the basilic vein which measures approximately 3 cm in length . Mild adjacent subcutaneous edema. IMPRESSION: 1. No sonographic evidence of deep venous thrombosis. 2. Short segment superficial venous thrombosis of the forearm as above. The above report was generated using voice recognition software. It may contain grammatical, syntax o r spelling errors. Electronically signed by: Brennon Matos M.D. 01/16/2019 9:16 PM
[2019-01-17] MEDS: OXYCODONE HCL IR 5 MG TAB (IMMEDIATE RELEASE) PO PRN ×6 (01:51→21:47)
[2019-01-17] MEDS: THIAMINE HCL 100 MG TAB PO SCH (09:22)
[2019-01-17] MEDS: LACTOBACILLUS ACIDOPHILUS (FLORANEX) TAB PO SCH (09:23)
[2019-01-17] MEDS: FOLIC ACID 1 MG TAB PO SCH (09:23)
[2019-01-17] MEDS: PANTOprazole 40 MG TAB PO SCH ×2 (09:24→20:44)
[2019-01-17] MEDS: CITALOPRAM 20 MG TAB PO SCH (09:24)
[2019-01-17] MEDS: SUCRALFATE 1 GM TAB PO SCH ×4 (09:25→20:44)
[2019-01-17] MEDS: PANCREAZE (LIPASE 10,500U) CAP PO SCH ×3 (09:25→17:21)
[2019-01-17] MEDS: MAGNESIUM OXIDE 400 MG TAB PO SCH ×2 (09:25→20:44)
[2019-01-17] MEDS: LIDOCAINE 5% 1 PATCH TD SCH (09:26)
[2019-01-17 09:42] LABS: Mean Corpuscular Hgb Conc 30.5 g/dL (32-36)
[2019-01-17] MEDS: FERROUS SULFATE 325 MG TAB PO SCH (09:51)
[2019-01-17] MEDS: LOPERAMIDE HCL 2 MG CAP PO PRN ×2 (09:51→21:58)
[2019-01-17 10:02] LABS: Hematocrit (blood only) 26.6 % (37-47); Hemoglobin 8.1 g/dL (12.0-16.0); Mean Corpuscular Hemoglobin 23.4 pg (25-34); Mean Corpuscular Volume 76.9 fL (80-100); RDW Coefficient of Variation 25.7 % (11.5-14.5); RDW Standard Deviation 68.9 fL (36.4-46.3); Red Blood Count 3.46 M/uL (4.2-5.4); White Blood Count 1.73 K/uL (4.8-10.8)
[2019-01-17 10:13] LABS: BUN Creatinine Ratio 13.7 (10-20); Calcium 8.2 mg/dl (8.5-10.1); Creatinine Clr Calc Pharmacy 123.4 ml/min; Est GFR (African American) 131.7; Est GFR (Non-African American) 113.6; Magnesium 1.6 mg/dl (1.8-2.4); Potassium 3.8 mmol/L (3.5-5.1)
[2019-01-17 10:24] LABS: Platelet Count 96 K/uL (130-400); Platelet Estimate Decreased (Normal)
--- NOTE | 2019-01-17 19:03 | Hospitalist Progress Note ---
Date of Service January 17, 2019 Assessment & Plan (1) Alcohol withdrawal: -This is a 53 year old female with history of alcohol use and chronic back pain who presented on 01/04/19 because of worsening back discomfort at home with usual left leg weakness and incontinence symptoms as per patient; as per History and physical note, Patient resorted to alcohol consumption to alleviate pain since unable to get her narcotic Completed gabapentin course for alcohol withdrawn Counseling on alcohol cessation Waiting for placement to alcohol rehab Alcoholic pancreatitis CT Adb/plevis showed mild infiltration is questioned around the pancreatic head. Question mild wall thickening versus underdistention of the colon. Lipase elevated on admission Tolerated diet Resolved Lumbar radiculopathy Secondary to progression of lumbar compression fx from mechanical fall last month Lumbar CT showed acute or subacute appearing 40% superior endplate compression deformity at L2 has progressed from 11/27/2018 and now demonstrates 3 mm retropulsion resulting in mild central canal stenosis. Ortho on board recommended conservative management for now Plan for outpatient kyphoplasty to be arranged by ortho once pt discharge Continue Pain control PT/O Patient has been able to demonstrate that she can ambulate with walker but insists that she cannot perform daily activities of living at home by herself such as self bathing Pancytopenia Neutropenia Severe thrombocytopenia Secondary to alcoholism No acute bleeding issues Neutropenic fever UTI Possible related to UTI Developed fever of 38.6 celsius on 01/13/19 afternoon Urine cx grew Klebsiella and Ecoli (pansensitive) Received IV fluids and started on Cefepime on 01/13/19, then transitioned to Zosyn as infectious workup remarkable for bacteria in the urine and patient has had in the ESBL with resistance to cefepime Zosyn was discontinued and transition to ceftriaxone on 01/15/19 P RUE tenderness/erythema Doppler of RUE showed Short segment superficial venous thrombosis of the forearm Will apply warn compress Diarrhea Nonspecific colitis noted on admission CT scan 01/06/19 and 01/14/19 stool are negative for C. difficile Pt said that she has chronic diarrhea Continue Imodium PRN Electrolytes Imbalance Mg 1.6 today Mg replaced Continue monitor electrolytes DVT Px: SCDs Code Status Full code Disposition Waiting for placement Subjective Pt was seen and examined Lying in bed with no distress eating dinner Pt said that she feels ok She said that she does have chronic diarrhea on/off Pt said that she does not plan to drink alcohol if her pain is control She said that the reason that she drinks is to help with her pain Denies any chest pain, palpitation, dizziness and SOB Physical Exam Physical Exam: General- No acute distress Head- atraumatic Eyes- PERRL, EOMI, ENT- oropharynx clear Neck- supple, no JVD Lungs- clear to auscultation Heart- regular rhythm; no murmur Abdomen- normal bowel sounds, soft, nontender Extremities- no calf tenderness Neuro- alert, oriented x 3; PERRL, EOMI; no facial palsy; no dysarthria Skin- warm & dry, right upper extremity erythema and tenderness Results & Data Vital Signs (Past 12 Hours) Vital Signs Temp Pulse Pulse Resp BP Pulse Ox 01/17/19 15:31 37.2 C 61 20 129/84 99 01/17/19 07:20 36.8 C 65 20 106/59 L 93
[2019-01-17] MEDS ORDERED: MAGNESIUM SULFATE / D5W 1 GM/100 ML BAG IV ONE (21:00)
[2019-01-18] MEDS: OXYCODONE HCL IR 5 MG TAB (IMMEDIATE RELEASE) PO PRN ×6 (01:50→21:40)
[2019-01-18] MEDS: LOPERAMIDE HCL 2 MG CAP PO PRN ×2 (01:50→09:12)
[2019-01-18] MEDS: PROMETHAZINE HCL 12.5 MG/10 ML UDP PO PRN (05:51)
[2019-01-18 06:34] LABS: Mean Corpuscular Hgb Conc 30.2 g/dL (32-36); Nucleated RBC # (auto) 0.02 K/uL (0-0); Nucleated RBC % (auto) 0.9 %
[2019-01-18 06:49] LABS: Hematocrit (blood only) 30.8 % (37-47); Hemoglobin 9.3 g/dL (12.0-16.0); Mean Corpuscular Hemoglobin 23.3 pg (25-34); RDW Coefficient of Variation 25.7 % (11.5-14.5); RDW Standard Deviation 68.9 fL (36.4-46.3); White Blood Count 2.39 K/uL (4.8-10.8)
[2019-01-18 07:12] LABS: BUN Creatinine Ratio 19.3 (10-20); Calcium 8.5 mg/dl (8.5-10.1); Creatinine Clr Calc Pharmacy 138.8 ml/min; Est GFR (African American) 136.9; Est GFR (Non-African American) 118.1; Magnesium 1.9 mg/dl (1.8-2.4); Potassium 3.6 mmol/L (3.5-5.1)
[2019-01-18 07:21] LABS: Platelet Count 100 K/uL (130-400); Platelet Estimate Decreased (Normal)
[2019-01-18] MEDS: THIAMINE HCL 100 MG TAB PO SCH (08:31)
[2019-01-18] MEDS: FOLIC ACID 1 MG TAB PO SCH (08:31)
[2019-01-18] MEDS: PANCREAZE (LIPASE 10,500U) CAP PO SCH ×3 (08:32→17:40)
[2019-01-18] MEDS: LACTOBACILLUS ACIDOPHILUS (FLORANEX) TAB PO SCH (08:32)
[2019-01-18] MEDS: FERROUS SULFATE 325 MG TAB PO SCH (09:13)
[2019-01-18] MEDS: SUCRALFATE 1 GM TAB PO SCH ×4 (09:13→21:41)
[2019-01-18] MEDS: MAGNESIUM OXIDE 400 MG TAB PO SCH ×2 (09:13→21:41)
[2019-01-18] MEDS: CITALOPRAM 20 MG TAB PO SCH (09:14)
[2019-01-18] MEDS: PANTOprazole 40 MG TAB PO SCH ×2 (09:14→21:40)
[2019-01-18] MEDS: LIDOCAINE 5% 1 PATCH TD SCH (09:14)
--- NOTE | 2019-01-18 18:52 | Hospitalist Progress Note ---
Date of Service January 18, 2019 Assessment & Plan (1) Alcohol withdrawal: This is a 53 year old female with history of alcohol use and chronic back pain who presented on 01/04/19 because of worsening back discomfort at home with usual left leg weakness and incontinence symptoms as per patient; as per History and physical note, Patient resorted to alcohol consumption to alleviate pain since unable to get her narcotic Completed gabapentin course for alcohol withdrawn Counseling on alcohol cessation Has been denies from many facilities for inpatient alcohol rehab Plan to do outpatient alcohol rehab Alcoholic pancreatitis CT Adb/plevis showed mild infiltration is questioned around the pancreatic head. Question mild wall thickening versus underdistention of the colon. Lipase elevated on admission Tolerated diet Resolved Lumbar radiculopathy Secondary to progression of lumbar compression fx from mechanical fall last month Lumbar CT showed acute or subacute appearing 40% superior endplate compression deformity at L2 has progressed from 11/27/2018 and now demonstrates 3 mm retropulsion resulting in mild central canal stenosis. Ortho on board recommended conservative management for now Plan for outpatient kyphoplasty to be arranged by ortho once pt discharge Continue Pain control PT/O Patient has been able to demonstrate that she can ambulate with walker but insists that she cannot perform daily activities of living at home by herself such as self bathing Pancytopenia Neutropenia Severe thrombocytopenia Secondary to alcoholism Hgb improved to 9.3 Platelet increased to 100 No acute bleeding issues Neutropenic fever UTI Possible related to UTI Developed fever of 38.6 celsius on 01/13/19 afternoon Urine cx grew Klebsiella and Ecoli (pansensitive) Received IV fluids and started on Cefepime on 01/13/19, then transitioned to Zosyn as infectious workup remarkable for bacteria in the urine and patient has had in the ESBL with resistance to cefepime Zosyn was discontinued and transition to ceftriaxone on 01/15/19 P RUE tenderness/erythema Doppler of RUE showed Short segment superficial venous thrombosis of the forearm Continue to apply warn compress Diarrhea Nonspecific colitis noted on admission CT scan 01/06/19 and 01/14/19 stool are negative for C. difficile Pt said that she has chronic diarrhea Continue Imodium PRN Discussed with nursing staff to record each time pt has a BM Monitor electrolytes Electrolytes Imbalance Mg 1.9 today Continue monitor electrolytes DVT Px: SCDs Code Status Full code Disposition Denied from multiple facilities for inpatient alcohol rehab Possible discharge tomorrow Subjective Pt was seen and examined Lying in bed with no distress Pt said that she continues to have diarrhea She said that she had 10 episodes of watery diarrhea Nurse said that she only asked for the Imodium once today Nurse could not confirm that she had 10 BM today Denies any chest pain, palpitation and SOB Physical Exam Physical Exam: General- No acute distress Head- atraumatic Eyes- PERRL, EOMI, ENT- oropharynx clear Neck- supple, no JVD Lungs- clear to auscultation Heart- regular rhythm; no murmur Abdomen- normal bowel sounds, soft, nontender Extremities- no calf tenderness Neuro- alert, oriented x 3; PERRL, EOMI; no facial palsy; no dysarthria Skin- warm & dry, right upper extremity erythema and tenderness Results & Data Vital Signs (Past 12 Hours) Vital Signs Temp Pulse Pulse Resp BP Pulse Ox 01/18/19 15:29 37.0 C 72 18 103/67 98 01/18/19 07:00 36.8 C 61 18 97/56 L 96
[2019-01-19] MEDS: LOPERAMIDE HCL 2 MG CAP PO PRN (00:43)
[2019-01-19] MEDS: OXYCODONE HCL IR 5 MG TAB (IMMEDIATE RELEASE) PO PRN ×6 (01:39→21:37)
[2019-01-19] MEDS: SUCRALFATE 1 GM TAB PO SCH ×4 (08:20→20:32)
[2019-01-19] MEDS: LACTOBACILLUS ACIDOPHILUS (FLORANEX) TAB PO SCH (08:20)
[2019-01-19] MEDS: PANTOprazole 40 MG TAB PO SCH ×2 (08:20→20:33)
[2019-01-19] MEDS: LIDOCAINE 5% 1 PATCH TD SCH (08:21)
[2019-01-19] MEDS: FOLIC ACID 1 MG TAB PO SCH (08:21)
[2019-01-19] MEDS: THIAMINE HCL 100 MG TAB PO SCH (08:21)
[2019-01-19] MEDS: PANCREAZE (LIPASE 10,500U) CAP PO SCH ×3 (08:22→16:30)
[2019-01-19] MEDS: CITALOPRAM 20 MG TAB PO SCH (08:22)
[2019-01-19] MEDS: FERROUS SULFATE 325 MG TAB PO SCH (08:22)
[2019-01-19] MEDS: MAGNESIUM OXIDE 400 MG TAB PO SCH ×2 (08:22→20:32)
[2019-01-19] MEDS: PROMETHAZINE HCL 12.5 MG/10 ML UDP PO PRN (08:58)
--- NOTE | 2019-01-19 16:06 | Hospitalist Progress Note ---
Date of Service January 19, 2019 Assessment & Plan (1) Alcohol withdrawal: This is a 53 year old female with history of alcohol use and chronic back pain who presented on 01/04/19 because of worsening back discomfort at home with usual left leg weakness and incontinence symptoms as per patient; as per History and physical note, Patient resorted to alcohol consumption to alleviate pain since unable to get her narcotic Completed gabapentin course for alcohol withdrawn Counseling on alcohol cessation Has been denies from many facilities for inpatient alcohol rehab Plan to do outpatient alcohol rehab Pt received all the info from case management Alcoholic pancreatitis CT Adb/plevis showed mild infiltration is questioned around the pancreatic head. Question mild wall thickening versus underdistention of the colon. Lipase elevated on admission Tolerated diet Resolved Lumbar radiculopathy Secondary to progression of lumbar compression fx from mechanical fall last month Lumbar CT showed acute or subacute appearing 40% superior endplate compression deformity at L2 has progressed from 11/27/2018 and now demonstrates 3 mm retropulsion resulting in mild central canal stenosis. Ortho on board recommended conservative management for now Plan for outpatient kyphoplasty to be arranged by ortho once pt discharge Continue Pain control PT/O Patient has been able to demonstrate that she can ambulate with walker but insists that she cannot perform daily activities of living at home by herself such as self bathing Pancytopenia Neutropenia Severe thrombocytopenia Secondary to alcoholism Hgb improved to 9.3 Platelet increased to 100 No acute bleeding issues Neutropenic fever UTI Possible related to UTI Developed fever of 38.6 celsius on 01/13/19 afternoon Urine cx grew Klebsiella and Ecoli (pansensitive) Received IV fluids and started on Cefepime on 01/13/19, then transitioned to Zosyn as infectious workup remarkable for bacteria in the urine and patient has had in the ESBL with resistance to cefepime Zosyn was discontinued and transition to ceftriaxone on 01/15/19 P RUE tenderness/erythema Doppler of RUE showed Short segment superficial venous thrombosis of the forearm Continue to apply warn compress Diarrhea Nonspecific colitis noted on admission CT scan 01/06/19 and 01/14/19 stool are negative for C. difficile Pt said that she has chronic diarrhea Continue Imodium PRN Discussed with nursing staff to record each time pt has a BM Monitor electrolytes Electrolytes Imbalance Mg 1.9 today Continue monitor electrolytes DVT Px: SCDs Code Status Full code Disposition Denied from multiple facilities for inpatient alcohol rehab Possible discharge tomorrow Subjective Pt was seen and examined Lying in bed with no distress She said that she vomited this morning Pt said that her diarrhea improves compare to yesterday She said that she had about 5 episodes today Denies any chest pain, palpitation, dizziness and SOB Physical Exam Physical Exam: General- No acute distress Head- atraumatic Eyes- PERRL, EOMI, ENT- oropharynx clear Neck- supple, no JVD Lungs- clear to auscultation Heart- regular rhythm; no murmur Abdomen- normal bowel sounds, soft, nontender Extremities- no calf tenderness Neuro- alert, oriented x 3; PERRL, EOMI; no facial palsy; no dysarthria Skin- warm & dry, right upper extremity erythema and tenderness Results & Data Vital Signs (Past 12 Hours) Vital Signs Temp Pulse Pulse Resp BP Pulse Ox 01/19/19 14:38 36.7 C 66 18 113/71 97 01/19/19 07:12 36.8 C 59 L 18 98/58 L 95
[2019-01-20] MEDS: OXYCODONE HCL IR 5 MG TAB (IMMEDIATE RELEASE) PO PRN ×6 (01:35→21:19)
[2019-01-20] MEDS: ACETAMINOPHEN 325 MG TAB PO PRN (08:19)
[2019-01-20] MEDS: LOPERAMIDE HCL 2 MG CAP PO PRN ×2 (08:19→21:19)
[2019-01-20] MEDS: CITALOPRAM 20 MG TAB PO SCH (08:20)
[2019-01-20] MEDS: LACTOBACILLUS ACIDOPHILUS (FLORANEX) TAB PO SCH (08:21)
[2019-01-20] MEDS: FOLIC ACID 1 MG TAB PO SCH (08:21)
[2019-01-20] MEDS: MAGNESIUM OXIDE 400 MG TAB PO SCH ×2 (08:21→21:20)
[2019-01-20] MEDS: PANTOprazole 40 MG TAB PO SCH ×2 (08:22→21:20)
[2019-01-20] MEDS: FERROUS SULFATE 325 MG TAB PO SCH (08:22)
[2019-01-20] MEDS: THIAMINE HCL 100 MG TAB PO SCH (08:22)
[2019-01-20] MEDS: PANCREAZE (LIPASE 10,500U) CAP PO SCH ×3 (08:22→17:21)
[2019-01-20] MEDS: SUCRALFATE 1 GM TAB PO SCH ×4 (08:23→21:20)
[2019-01-20] MEDS: LIDOCAINE 5% 1 PATCH TD SCH (08:23)
[2019-01-20] MEDS: PROMETHAZINE HCL 12.5 MG/10 ML UDP PO PRN ×2 (10:04→18:54)
--- NOTE | 2019-01-20 19:24 | Hospitalist Progress Note ---
Date of Service January 20, 2019 Assessment & Plan (1) Alcohol withdrawal: This is a 53 year old female with history of alcohol use and chronic back pain who presented on 01/04/19 because of worsening back discomfort at home with usual left leg weakness and incontinence symptoms as per patient; as per History and physical note, Patient resorted to alcohol consumption to alleviate pain since unable to get her narcotic Completed gabapentin course for alcohol withdrawn Counseling on alcohol cessation Has been denies from many facilities for inpatient alcohol rehab Plan to do outpatient alcohol rehab Pt received all the info from case management Alcoholic pancreatitis CT Adb/plevis showed mild infiltration is questioned around the pancreatic head. Question mild wall thickening versus underdistention of the colon. Lipase elevated on admission Tolerated diet Resolved Lumbar radiculopathy Secondary to progression of lumbar compression fx from mechanical fall last month Lumbar CT showed acute or subacute appearing 40% superior endplate compression deformity at L2 has progressed from 11/27/2018 and now demonstrates 3 mm retropulsion resulting in mild central canal stenosis. Ortho on board recommended conservative management for now Plan for outpatient kyphoplasty to be arranged by ortho once pt discharge Continue Pain control PT/O Patient has been able to demonstrate that she can ambulate with walker but insists that she cannot perform daily activities of living at home by herself such as self bathing Pancytopenia Neutropenia Severe thrombocytopenia Secondary to alcoholism Hgb improved to 9.3 Platelet increased to 100 No acute bleeding issues Neutropenic fever UTI Possible related to UTI Developed fever of 38.6 celsius on 01/13/19 afternoon Urine cx grew Klebsiella and Ecoli (pansensitive) Received IV fluids and started on Cefepime on 01/13/19, then transitioned to Zosyn as infectious workup remarkable for bacteria in the urine and patient has had in the ESBL with resistance to cefepime Zosyn was discontinued and transition to ceftriaxone on 01/15/19 P RUE tenderness/erythema Doppler of RUE showed Short segment superficial venous thrombosis of the forearm Continue to apply warn compress Diarrhea Nonspecific colitis noted on admission CT scan 01/06/19 and 01/14/19 stool are negative for C. difficile Pt said that she has chronic diarrhea Continue Imodium PRN Discussed with nursing staff to record each time pt has a BM Monitor electrolytes Electrolytes Imbalance Mg 1.9 today Continue monitor electrolytes DVT Px: SCDs Code Status Full code Disposition Denied from multiple facilities for inpatient alcohol rehab Possible discharge tomorrow Subjective Pt was seen and examined Lying in bed with no distress Pt said that she only has 3 episodes of diarrhea today She said that she does not have a ride to go home today Denies any chest pain, palpitation and SOB Physical Exam Physical Exam: General- No acute distress Head- atraumatic Eyes- PERRL, EOMI, ENT- oropharynx clear Neck- supple, no JVD Lungs- clear to auscultation Heart- regular rhythm; no murmur Abdomen- normal bowel sounds, soft, nontender Extremities- no calf tenderness Neuro- alert, oriented x 3; PERRL, EOMI; no facial palsy; no dysarthria Skin- warm & dry, right upper extremity erythema and tenderness Results & Data Vital Signs (Past 12 Hours) Vital Signs Temp Pulse Resp BP Pulse Ox 01/20/19 15:17 37.0 C 61 20 161/89 H 98
[2019-01-21] MEDS: OXYCODONE HCL IR 5 MG TAB (IMMEDIATE RELEASE) PO PRN ×4 (01:32→13:36)
[2019-01-21] MEDS: LOPERAMIDE HCL 2 MG CAP PO PRN (05:30)
[2019-01-21 07:55] VITALS: BP 97/63; TEMP 98.2; O2SAT 97
[2019-01-21] MEDS: CITALOPRAM 20 MG TAB PO SCH (09:34)
[2019-01-21] MEDS: PANTOprazole 40 MG TAB PO SCH (09:34)
[2019-01-21] MEDS: MAGNESIUM OXIDE 400 MG TAB PO SCH (09:34)
[2019-01-21] MEDS: FOLIC ACID 1 MG TAB PO SCH (09:34)
[2019-01-21] MEDS: SUCRALFATE 1 GM TAB PO SCH ×2 (09:34→12:36)
[2019-01-21] MEDS: THIAMINE HCL 100 MG TAB PO SCH (09:35)
[2019-01-21] MEDS: PANCREAZE (LIPASE 10,500U) CAP PO SCH ×2 (09:35→12:36)
[2019-01-21] MEDS: LIDOCAINE 5% 1 PATCH TD SCH (09:35)
[2019-01-21] MEDS: LACTOBACILLUS ACIDOPHILUS (FLORANEX) TAB PO SCH (09:35)
[2019-01-21] MEDS: FERROUS SULFATE 325 MG TAB PO SCH (09:36)
[2019-01-21] MEDS: PROMETHAZINE HCL 12.5 MG/10 ML UDP PO PRN (09:36)
--- NOTE | 2019-01-21 12:41 | Hospitalist Progress Note ---
Date of Service January 21, 2019 Assessment & Plan (1) Alcohol withdrawal: This is a 53 year old female with history of alcohol use and chronic back pain who presented on 01/04/19 because of worsening back discomfort at home with usual left leg weakness and incontinence symptoms as per patient; as per History and physical note, Patient resorted to alcohol consumption to alleviate pain since unable to get her narcotic Completed gabapentin course for alcohol withdrawn Counseling on alcohol cessation Has been denies from many facilities for inpatient alcohol rehab Plan to do outpatient alcohol rehab Pt received all the info from case management Alcoholic pancreatitis CT Adb/plevis showed mild infiltration is questioned around the pancreatic head. Question mild wall thickening versus underdistention of the colon. Lipase elevated on admission Tolerated diet Resolved Lumbar radiculopathy Secondary to progression of lumbar compression fx from mechanical fall last month Lumbar CT showed acute or subacute appearing 40% superior endplate compression deformity at L2 has progressed from 11/27/2018 and now demonstrates 3 mm retropulsion resulting in mild central canal stenosis. Ortho on board recommended conservative management for now Plan for outpatient kyphoplasty to be arranged by ortho once pt discharge Continue Pain control PT/O Patient has been able to demonstrate that she can ambulate with walker but insists that she cannot perform daily activities of living at home by herself such as self bathing Pancytopenia Neutropenia Severe thrombocytopenia Secondary to alcoholism Hgb improved to 9.3 Platelet increased to 100 No acute bleeding issues Neutropenic fever UTI Possible related to UTI Developed fever of 38.6 celsius on 01/13/19 afternoon Urine cx grew Klebsiella and Ecoli (pansensitive) Received IV fluids and started on Cefepime on 01/13/19, then transitioned to Zosyn as infectious workup remarkable for bacteria in the urine and patient has had in the ESBL with resistance to cefepime Zosyn was discontinued and transition to ceftriaxone on 01/15/19 P RUE tenderness/erythema Doppler of RUE showed Short segment superficial venous thrombosis of the forearm Continue to apply warn compress Diarrhea Nonspecific colitis noted on admission CT scan 01/06/19 and 01/14/19 stool are negative for C. difficile Pt said that she has chronic diarrhea Continue Imodium PRN Discussed with nursing staff to record each time pt has a BM Monitor electrolytes Electrolytes Imbalance Mg 1.9 today Continue monitor electrolytes DVT Px: SCDs Code Status Full code Disposition Denied from multiple facilities for inpatient alcohol rehab Possible discharge today Follow up with your primary care provider Dr. Ge on 01/22 @ 11 AM Subjective Pt was seen and examined Lying in bed with no distress Pt said that her diarrhea is a little better She said that she will call the alcohol rehab to arrange for outpatient rehab Denies any chest pain, palpitation, dizziness and SOB Physical Exam Physical Exam: General- No acute distress Head- atraumatic Eyes- PERRL, EOMI, ENT- oropharynx clear Neck- supple, no JVD Lungs- clear to auscultation Heart- regular rhythm; no murmur Abdomen- normal bowel sounds, soft, nontender Extremities- no calf tenderness Neuro- alert, oriented x 3; PERRL, EOMI; no facial palsy; no dysarthria Skin- warm & dry, right upper extremity erythema and tenderness Results & Data Vital Signs (Past 12 Hours) Vital Signs Temp Pulse Resp BP Pulse Ox 01/21/19 07:54 36.8 C 80 18 97/63 L 97
[2019-01-21 14:44] VITALS: PULSE 66
--- NOTE | 2019-01-22 08:41 | Discharge Summary ---
Date of Service January 21, 2019 Admission HPI Per Admitting Provider History obtained from patient and records. Medical history significant for alcoholic cirrhosis, ongoing alcohol abuse, chronic pancytopenia as per records, chronic pain as per records, history seizures as per records, history thoracic/lumbar compression fracture, past tobacco abuse. Recent confinement 3 weeks ago for lumbar compression deformity secondary to fall. Elective kyphoplasty to be scheduled outpatient as per orthopedics. Worsening back discomfort at home with usual left leg weakness and incontinence symptoms as per patient. Oxycodone prescription not covered by insurance. Patient resorted to alcohol consumption to alleviate pain. ER visit a few days ago for uncontrolled back pain. No imaging done. Patient discharged home. Patient returned to the ER this morning for worsening symptoms along with generalized abdominal pain, with nausea. Good BM as per patient. No chest pain. Shortness of breath which patient attributes to inability to take a deep breath because of back pain. No cough symptoms. Referral for alcohol rehab placement made at the ER. Hospitalist service later requested to evaluate patient for possible admission for alcohol withdrawal symptoms and alcoholic ketoacidosis on pulmonary blood work. 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 Admission Exam Per Admitting Provider GENERAL: Slightly uncomfortable and anxious, alcoholic fetor, no respiratory distress SKIN: Pallor, warm HEENT: Pale palpebral conjunctivae, no ptosis, dry buccal mucosa NECK : Supple, no tenderness CHEST : Decreased breath sounds, no tenderness HEART : Tachycardic, no obvious murmurs ABDOMEN: Some distention, minimal epigastric tenderness BACK : Low back tenderness, positive straight leg raise test L EXTREMITIES : No LE swelling/tenderness, no other conspicuous deformities noted NEUROLOGIC : Coherent, no facial asymmetry, MMTS BUE 4/5, RLE 3/5, LLE 2/5, no other gross focality Principal Diagnosis Alcohol withdrawal Alcoholic pancreatitis Alcohol Use disorder Lumbar radiculopathy (Secondary to progression of lumbar compression) Pancytopenia (Neutropenia, anemia, thrombocytopenia) neutropenic Fever UTI RUE tenderness/erythema Diarrhea Electrolytes Imbalance Discharge Exam General- No acute distress Head- atraumatic Eyes- PERRL, EOMI, ENT- oropharynx clear Neck- supple, no JVD Lungs- clear to auscultation Heart- regular rhythm; no murmur Abdomen- normal bowel sounds, soft, nontender Extremities- no calf tenderness Neuro- alert, oriented x 3; PERRL, EOMI; no facial palsy; no dysarthria Skin- warm & dry, right upper extremity erythema and tenderness Discharge Data Allergies Allergy/AdvReac Type Severity Reaction Status Date / Time diphenhydramine Allergy Severe seizures/it Verified 01/04/19 09:05 mya/tremo rs bupropion Allergy Intermediate Palpitation Verified 01/04/19 09:05 s clarithromycin Allergy Intermediate HIVES Verified 01/04/19 09:05 aspirin Allergy Mild hives/ringing Verified 01/04/19 09:05 of ears oxaprozin Allergy Mild nausea/vomi Verified 01/04/19 09:05 ting salicylates Allergy Mild ringing in Verified 01/04/19 09:05 ears/hives tramadol Allergy Mild hives/upset Verified 01/04/19 09:05 stomach Consultations 01/04/19 19:28 ED Decision to Admit Stat 01/04/19 21:30 Consult Health Information Management Stat 01/04/19 22:25 Consult Case Management - Discharge Planning Routine 01/04/19 22:27 Consult Orthopedic Surgery Routine 01/04/19 23:58 Consult Gastroenterology Routine Ordered Studies 01/04/19 09:07 CT head/brain wo con Stat 01/04/19 21:29 CT lumbar spine wo con Urgent CT thoracic spine wo con Urgent 01/05/19 15:44 CT abd pelvis wo con Routine 01/16/19 18:25 US venous doppler UE RT Routine XR femur LT 2V routine CLINICAL HISTORY: 53 years-old Female presenting with Pt c/o left femur pain. TECHNIQUE: Frontal and crosstable lateral views of the left femur were obtained. COMPARISON: 11/27/2018. FINDINGS: Severe osteopenia. This limits evaluation for nondisplaced fracture. Redemonstration of internal fixation with an intramedullary nail and distal interlocking screw within the left femoral neck and proximal metadiaphysis. No periprosthetic fracture or lucency. Acetabular protrusio of the left hip with moderate to severe degenerative changes. Internal fixation with buttress plate and screw in the medial tibial plateau. Joint space loss at the knee may be present to a mild degree. No gross evidence of any joint effusion. IMPRESSION: 1. Allowing for osteopenia, no acute osseous injury. 2. Internal fixation of the proximal left femur without evidence of hardware complication. 3. Left hip acetabular protrusio with moderate to severe degenerative change. 4. Partially visualized internal fixation of the medial tibial plateau. Electronically signed by: Luis A Cali M.D. 01/04/2019 10:15 AM Dictated: 01/04/19 1013 Transcribed: 01/04/[address] SCAN OF THE BRAIN WITHOUT IV CONTRAST CLINICAL HISTORY: Change in mental status. COMPARISON STUDY: CT of the brain dated 11/27/2018. TECHNIQUE: Unenhanced axial CT scan of the brain is performed from the vertex to the skull base. A dose lowering technique was utilized adhering to the principles of ALARA. CT DOSE: 638.56 mGycm FINDINGS: Brain parenchyma: A punctate colloid cyst is noted at the roof of the third ventricle on axial image #15. There is no hemorrhage, mass effect, or evidence of acute territorial ischemia by CT criteria. Sanchez-white matter differentiation is preserved. No extra-axial fluid collection is seen. Ventricles, sulci, cisterns: Normal in configuration. Intracranial vasculature: There is mild atherosclerotic calcification of the cavernous carotid and vertebral arteries. Calvarium: Unremarkable. Sinuses and mastoids: The visualized paranasal sinuses are clear. The mastoid air cells are well pneumatized. Orbits: The bony orbits are grossly intact. IMPRESSION: There is no hemorrhage, mass effect, or evidence of acute territorial ischemia by CT criteria. Electronically signed by: Herbie Reese M.D. 01/04/2019 10:10 AM Dictated: 01/04/19 0959 Transcribed: 01/04/19 0959 XR pelvis 1-2V routine CLINICAL HISTORY: 53 years-old Female presenting with Pt c/o pelvic pain. TECHNIQUE: Single frontal view of the pelvis was obtained. COMPARISON: CT from 11/27/2018. FINDINGS: Redemonstration of the implanted medical records coordinator projecting over the right lower quadrant with a catheter coursing towards the lumbar region. Intramedullary nail fixation in the left femur with a distal diaphyseal interlocking screw. Osteopenia suspected. Mild degenerative changes of the lower lumbar spine. Sacroiliac joints, pubic symphysis, and hip joints congruent. There is a acetabular protrusio morphology of the left hip with moderate to severe degenerative change. The right hip is grossly normal. The bony pelvis is intact. IMPRESSION: 1. Acetabular protrusio of the left hip, unchanged from prior, with moderate to severe degenerative change. 2. Osteopenia. Allowing for this, no gross evidence of acute osseous injury of the pelvis. Electronically signed by: Luis A Cali M.D. 01/04/2019 9:55 AM Dictated: 01/04/19952 Transcribed: 01/04/19952 XR chest 1V portable HISTORY: 53 years-old Female sob acute shortness of breath COMPARISON: Chest radiograph 12/01/2018 TECHNIQUE: Portable AP view of the chest FINDINGS: Cardiomediastinal and hilar silhouettes are within normal limits. There is no pneumothorax, pleural effusion, focal airspace consolidation or overt pulmonary edema. Degenerative changes of the shoulders and spine. Surgical clips project over the upper abdomen. Levoscoliosis about the midthoracic spine. IMPRESSION: No acute process. The above report was generated using voice recognition software. It may contain grammatical, syntax or spelling errors. Electronically signed by: Brennon Matos M.D. 01/04/2019 10:03 PM Dictated: 01/04/192201 Transcribed: 01/04/192201 CT thoracic spine wo con, CT lumbar spine wo con HISTORY: 53 years-old Female worsening back pain acute mid and low back pain COMPARISON: CT chest, abdomen and pelvis 11/27/2018 TECHNIQUE: Multiple axial CT images of the thoracic and lumbar spine were obtained without the use of IV contrast. A dose lowering technique was used consistent with the principals of ALARA. FINDINGS: CT THORACIC SPINE: Nonspecific distal esophageal wall thickening. Hepatic steatosis. Lung kerr appear clear. No pneumothorax or pleural effusion identified. Paraspinal soft tissues are within normal limits. No definite high-grade central canal or foraminal narrowing identified. Demineralized appearance the bones. There is multilevel mild to moderate disc space narrowing with moderate spondylitic spurring and moderate to severe facet arthrosis. Compression deformities at T6- T9 appear unchanged from comparison and are likely chronic. No retropulsion. Multilevel Schmorl's nodes are present. No acute fracture or subluxation is identified. There is increased kyphotic curvature of the thoracic spine centered at approximately the T7 level. Levoscoliosis of the thoracic spine is centered at T9. Imaged ribs appear intact. CT LUMBAR SPINE: Motion degraded exam. Demineralized appearance of the bones. Moderate multilevel facet arthrosis. Posterior annular disc bulges are seen at several levels without high-grade central canal narrowing. There is acute or subacute appearing 40% superior endplate compression deformity at L2 which has progressed from comparison and demonstrates 3 mm retropulsion about the superior aspect of the posterior endplate. This results in mild central canal stenosis, AP dimension of the thecal sac measuring 9 mm. No high-grade foraminal narrowing noted at this interspace. There is no significant paravertebral edema. Unchanged cortical thickening of the anterior mid sacrum suggestive of remote fracture. Remote appe aring Schmorl's node involves the superior endplates of L3 and L4. 4 mm nonobstructing calculus of the inferior pole left kidney. Cholecystectomy. Postoperative changes of the stomach. There is suggestion of edema surrounding the pancreatic head and neck. IMPRESSION: 1. Acute or subacute appearing 40% superior endplate compression deformity at L2 has progressed from 11/27/2018 and now demonstrates 3 mm retropulsion resulting in mild central canal stenosis. 2. No additional acute fracture or subluxation of the thoracic or lumbar spine. 3. Degenerative and chronic appearing findings as above. 4. Mild edema surrounding the pancreatic body and neck. Correlate with lipase level to exclude acute pancreatitis. 5. Nonobstructing left nephrolithiasis. 6. Hepatic steatosis. The above report was generated using voice recognition software. It may contain grammatical, syntax or spelling errors. Electronically signed by: Brennon Matos M.D. 01/04/2019 10:39 PM Dictated: 01/04/192225 Transcribed: 01/04/192225 CT thoracic spine wo con, CT lumbar spine wo con HISTORY: 53 years-old Female worsening back pain acute mid and low back pain COMPARISON: CT chest, abdomen and pelvis 11/27/2018 TECHNIQUE: Multiple axial CT images of the thoracic and lumbar spine were obtained without the use of IV contrast. A dose lowering technique was used consistent with the principals of NADIRA. FINDINGS: CT THORACIC SPINE: Nonspecific distal esophageal wall thickening. Hepatic steatosis. Lung kerr appear clear. No pneumothorax or pleural effusion identified. Paraspinal soft tissues are within normal limits. No definite high-grade central canal or foraminal narrowing identified. Demineralized appearance the bones. There is multilevel mild to moderate disc space narrowing with moderate spondylitic spurring and moderate to severe facet arthrosis. Compression deformities at T6- T9 appear unchanged from comparison and are likely chronic. No retropulsion. Multilevel Schmorl's nodes are present. No acute fracture or subluxation is identified. There is increased kyphotic curvature of the thoracic spine centered at approximately the T7 level. Levoscoliosis of the thoracic spine is centered at T9. Imaged ribs appear intact. CT LUMBAR SPINE: Motion degraded exam. Demineralized appearance of the bones. Moderate multilevel facet arthrosis. Posterior annular disc bulges are seen at several levels without high-grade central canal narrowing. There is acute or subacute appearing 40% superior endplate compression deformity at L2 which has progressed from comparison and demonstrates 3 mm retropulsion about the superior aspect of the posterior endplate. This results in mild central canal stenosis, AP dimension of the thecal sac measuring 9 mm. No high-grade foraminal narrowing noted at this interspace. There is no significant paravertebral edema. Unchanged cortical thickening of the anterior mid sacrum suggestive of remote fracture. Remote appearing Schmorl's node involves the superior endplates of L3 and L4. 4 mm nonobstructing calculus of the inferior pole left kidney. Cholecystectomy. Postoperative changes of the stomach. There is suggestion of edema surrounding the pancreatic head and neck. IMPRESSION: 1. Acute or subacute appearing 40% superior endplate compression deformity at L2 has progressed from 11/27/2018 and now demonstrates 3 mm retropulsion resulting in mild central canal stenosis. 2. No additional acute fracture or subluxation of the thoracic or lumbar spine. 3. Degenerative and chronic appearing findings as above. 4. Mild edema surrounding the pancreatic body and neck. Correlate with lipase level to exclude acute pancreatitis. 5. Nonobstructing left nephrolithiasis. 6. Hepatic steatosis. The above report was generated using voice recognition software. It may contain grammatical, syntax or spelling errors. Electronically signed by: Brennon Matos M.D. 01/04/2019 10:39 PM Dictated: 01/04/192225 Transcribed: 01/04/192225 CT SCAN OF THE ABDOMEN AND PELVIS WITHOUT IV CONTRAST CLINICAL HISTORY: Generalized abdominal pain. COMPARISON STUDY: Abdominal CT dated 11/27/2018. TECHNIQUE: CT scan of the abdomen and pelvis is performed from the lung bases to the proximal femora. Images are reviewed in the axial, sagittal, and coronal planes. IV contrast was not administered for this examination as per the referring clinician. Note that the examination was performed in suboptimal fashion without oral and IV contrast. A dose lowering technique was utilized adhering to the principles of ALARA. CT DOSE: 340.72 mGy.cm FINDINGS: Lung bases: The heart is normal in size and without pericardial effusion. There are trace pleural effusions with bibasilar atelectasis. Linear atelectasis/scarring is present at both lung bases. There is no airspace consolidation typical for pneumonia. Liver: The liver demonstrates diffusely diminished attenuation consistent with severe hepatic steatosis. The liver is cirrhotic in morphology, noting nodularity of the surface contour and hypertrophy of the left lobe and caudate. There is no intrahepatic biliary ductal dilatation. Gallbladder: Surgically absent noting clips in the gallbladder fossa. Spleen: The spleen is enlarged measuring 14.1 cm in length. Pancreas: The unenhanced pancreas is moderately atrophic. Mild infiltration is suggested around the pancreatic head. Adrenal glands: Unremarkable. Kidneys: The unenhanced kidneys demonstrate mild cortical atrophy and are without hydronephrosis. There is a 4 mm nonobstructing calculus in the lower pole of the left kidney. There is no evidence of contour deforming renal mass lesion. Abdominal vasculature: The abdominal aorta is normal in course and caliber. Stomach and bowel: Postoperative changes consistent with a history of Jeffy-en-Y gastric bypass surgery. There is no bowel obstruction. Question mild wall thickening versus underdistention of the left colon. The appendix is well- visualized and normal. Peritoneum: There is no intraperitoneal free air. There is trace perihepatic and perisplenic ascites as well as a small volume of fluid in the pelvis. Lymphadenopathy: None. Pelvic viscera: Evaluation of the pelvis is degraded by streak artifact from orthopedic hardware in the left hip. The bladder is normal as visualized. The uterus is surgically absent. No adnexal lesion is seen. Skeletal structures: The skeletal structures are heterogeneously osteopenic. No lytic or blastic lesions are seen. There is chronic posttraumatic deformity of the left hip with intertrochanteric and intramedullary nails in place. 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 There are healed left pubic ring and left iliac wing fractures. There is also chronic deformity of the sacrum. There are mild to moderate superior compression deformities seen involving T12, L1, L2, L3, and L4. There are healed left-sided rib fractures. An intrathecal device is present within the right lower quadrant abdominal wall. Leads do not extend into the central canal. IMPRESSION: 1. Suboptimal examination without oral and IV contrast. 2. The liver is cirrhotic in morphology with evidence of severe steatosis. 3. Splenomegaly and a small volume of abdominopelvic ascites indicate portal hypertension. 4. There are trace pleural effusions. 5. The unenhanced pancreas is atrophic. Mild infiltration is questioned around the pancreatic head. Correlate clinically and with serum amylase/lipase levels for evidence of pancreatitis. 6. Question mild wall thickening versus underdistention of the colon. Correlate clinically for evidence of a mild nonspecific colitis. 7. Left-sided nephrolithiasis. 8. Postoperative change is consistent with previous gastric bypass surgery. No bowel obstruction is seen. 9. There are numerous compression deformities. Loss of height at L2 has significantly increased from 11/27/2018. Correlate for point tenderness. 10. Additional findings as above. Electronically signed by: Herbie Reese M.D. 01/05/2019 7:55 PM Dictated: 01/05/191943 Transcribed: 01/05/191943 XR chest 1V portable CLINICAL HISTORY: reported fever. rule out pneumonia dyspnea COMPARISON STUDY: 01/04/2019 FINDINGS: The bones soft tissues and hemidiaphragms are normal. The cardiomediastinal silhouette is normal. The lungs are clear. The pulmonary vasculature is normal. IMPRESSION: Negative chest. The above report was generated using voice recognition software. It may contain grammatical, syntax or spelling errors. Electronically signed by: Mj Smith M.D. 01/13/2019 3:58 PM Dictated: 01/13/19 1557 Transcribed: 01/13/191556 US venous doppler UE RT HISTORY: 53 years-old Female rule out Thrombophlebitis acute pain and swelling of the right upper extremity COMPARISON: None available TECHNIQUE: Multiple real-time sonographic images of the right upper extremity deep venous structures were obtained assessing grayscale appearance, color and spectral flow FINDINGS: Normal flow, compressibility, phasicity and augmentation of the right upper extremity deep venous structures. Occlusive superficial venous thrombosis is noted within the medial forearm within the area of clinical concern, possibly a branch of the basilic vein which measures approximately 3 cm in length. Mild adjacent subcutaneous edema. IMPRESSION: 1. No sonographic evidence of deep venous thrombosis. 2. Short segment superficial venous thrombosis of the forearm as above. The above report was generated using voice recognition software. It may contain grammatical, syntax or spelling errors. Electronically signed by: Brennon Matos M.D. 01/16/2019 9:16 PM Dictated: 01/16/192114 Transcribed: 01/16/192114 Hospital Course (1) Alcohol withdrawal: This is a 53 year old female with history of alcohol use and chronic back pain who presented on 01/04/19 because of worsening back discomfort at home with usual left leg weakness and incontinence symptoms as per patient; as per History and physical note, Patient resorted to alcohol consumption to alleviate pain since unable to get her narcotic Completed gabapentin course for alcohol withdrawn Counseling on alcohol cessation Has been denies from many facilities for inpatient alcohol rehab Plan to do outpatient alcohol rehab Pt received all the info from case management Alcoholic pancreatitis CT Adb/plevis showed mild infiltration is questioned around the pancreatic head. Question mild wall thickening versus underdistention of the colon. Lipase elevated on admission Tolerated diet Resolved Lumbar radiculopathy Secondary to progression of lumbar compression fx from mechanical fall last month Lumbar CT showed acute or subacute appearing 40% superior endplate compression deformity at L2 has progressed from 11/27/2018 and now demonstrates 3 mm retropulsion resulting in mild central canal stenosis. Ortho on board recommended conservative management for now Plan for outpatient kyphoplasty to be arranged by ortho once pt discharge Continue Pain control PT/O Patient has been able to demonstrate that she can ambulate with walker but insists that she cannot perform daily activities of living at home by herself such as self bathing Pancytopenia Neutropenia Severe thrombocytopenia Secondary to alcoholism Hgb improved to 9.3 Platelet increased to 100 No acute bleeding issues Neutropenic fever UTI Possible related to UTI Developed fever of 38.6 celsius on 01/13/19 afternoon Urine cx grew Klebsiella and Ecoli (pansensitive) Received IV fluids and started on Cefepime on 01/13/19, then transitioned to Zosyn as infectious workup remarkable for bacteria in the urine and patient has had in the ESBL with resistance to cefepime Zosyn was discontinued and transition to ceftriaxone on 01/15/19 P RUE tenderness/erythema Doppler of RUE showed Short segment superficial venous thrombosis of the forearm Continue to apply warn compress Diarrhea Nonspecific colitis noted on admission CT scan 01/06/19 and 01/14/19 stool are negative for C. difficile Pt said that she has chronic diarrhea Continue Imodium PRN Discussed with nursing staff to record each time pt has a BM Monitor electrolytes Electrolytes Imbalance Mg 1.9 today Continue monitor electrolytes DVT Px: SCDs Code Status Full code Disposition Denied from multiple facilities for inpatient alcohol rehab Possible discharge today Follow up with your primary care provider Dr. Ge on 01/22 @ 11 AM Total Time Total Time Spent Total Time Spent (In Minutes): 35 minutes Total Time Includes: Examination of the Patient, Discharge Planning, Medication Reconciliation, Communication With Other Providers and Other Discharge Plan Discharge Items Patient Disposition: Home - Home Health Services Reason For Visit: ETOH WITHDRAWAL Discharge Diagnosis: Alcoholic pancreatitis, Alcohol Use disorder, Lumbar radiculopathy (Secondary to progression of lumbar compression), Pancytopenia (Neutropenia, anemia, thrombocytopenia),neutropenic Fever Activity: Resume your previous activity Activity Comment: As tolerated Non-emergency contact: Primary Care Provider Call non-emergency contact if: you have any medication questions Follow-up/Referrals: Pita Borges MD [Primary Care Provider] - Diet: Low Sodium (2gm) Addtl Attending Provider Instructions: Follow up with your primary care provider Dr. Ge on 01/22 @ 11AM Call to arrange for the outpatient alcohol rehab treatment Follow up with orthopedic to arrange for the kyphoplasty procedure. Follow up with pain management Counseling on alcohol cessation Continue physical and occupation therapy Fall precaution Do not drink any alcohol while on narcotic Please do no drive or operate any machine while on narcotic Please hold next dose of narcotic if you become drowsy or lethargy Pending Studies at Discharge: No Stand-Alone Forms: [employer], Smoking Cessation Medications and DC Order Prescriptions: New lidocaine 5 % Adhesive Patch,Medicated 1 patch transdermal QAM Qty: 15 RF: 0 oxycodone 5 mg Tablet 5 mg PO Q6H PRN (Reason: pain) Qty: 4 RF: 0 Continued citalopram [Celexa] 10 mg Tablet 10 mg PO QAM RF: 0 hydroxyzine HCl 25 mg Tablet 25 - 50 mg PO BID PRN (Reason: Anxiety) RF: 0 Centrum Silver 0.4-300-250 mg-mcg-mcg Tablet 1 tab PO QAM RF: 0 calcium carbonate-vitamin D3 [Calcium 500 With D] 500 mg(1,250mg) -400 unit Tablet 1 tab PO BID RF: 0 sucralfate [Carafate] 1 gram tablet 1 g PO ACHS RF: 0 folic acid 1 mg tablet 1 mg PO DAILY RF: 0 thiamine HCl (vitamin B1) [Vitamin B-1] 100 mg Tablet 100 mg PO QAM Qty: 30 RF: 0 Creon 36,000-114,000- 180,000 unit Capsule,Delayed Release(Dr/Ec) 1 cap PO TIDM Qty: 90 RF: 0 pantoprazole 40 mg tablet,delayed release (DR/EC) 40 mg PO BID RF: 0 Lactobacillus acidoph-L.bulgar [Floranex] 1 million cell tablet 1 tab PO DAILY RF: 0 loperamide 2 mg capsule 2 mg PO DIRECTED MDD 16 mg/day PRN (Reason: Loose Stool) RF: 0 ergocalciferol (vitamin D2) [Vitamin D2] 50,000 unit Capsule 50,000 unit PO We@0900 Qty: 5 RF: 0 Discharge Orders: Discharge Order (Routine); Ordered 01/21/19 Ordered By: Ainsley Munoz Admission Data Admit Date/Time: 01/04/19 20:30 Attending Provider: Ainsley Munoz Admit Provider: Sven Costello Primary Care Provider: Pita Borges Other Providers: Sven Costello ; Issac Swain ; Mio Rojas ; Radha Castellon ; Kerrie Robles ; [place] ; Noble Vidal ; Pierre Vargas ; Aure Choi ; Sunitha Hercules ; Delano Gregory ; Kevin Coy ; Nicole Calvert ; Essence Kraus ; Meredith Diaz ; Ca Allen ; Nia Correa ; Daniel Vanegas Other Interventions: Discharge Summary Assessment (RN) Last Done: 01/21/19 14:56 DC Date/Time DO NOT enter until pt leaves facility: 01/21/19 15:39
== END 2019-01-21 15:39 | disposition home health service (06) | DRG 896 ==
LOC: ED 08:30 → 2W 20:30 → SUATTDRO 20:30 → 2W 21:30 → 4W 01-12 19:47
DX: D69.59 Other secondary thrombocytopenia; N39.0 Urinary tract infection, site not specified; F10.239 Alcohol dependence with withdrawal, unspecified; Z88.8 Allergy status to other drugs, medicaments and biological substances; D70.2 Other drug-induced agranulocytosis; Z87.891 Personal history of nicotine dependence; F41.9 Anxiety disorder, unspecified; K70.30 Alcoholic cirrhosis of liver without ascites; B96.1 Klebsiella pneumoniae [K. pneumoniae] as the cause of diseases classified elsewhere; Z91.19 Patient's noncompliance with other medical treatment and regimen; M54.16 Radiculopathy, lumbar region; R32 Unspecified urinary incontinence; W19.XXXD Unspecified fall, subsequent encounter; E87.6 Hypokalemia; G89.29 Other chronic pain; Z88.6 Allergy status to analgesic agent; E83.42 Hypomagnesemia; K52.9 Noninfective gastroenteritis and colitis, unspecified; B96.20 Unspecified Escherichia coli [E. coli] as the cause of diseases classified elsewhere; Z88.5 Allergy status to narcotic agent; D64.9 Anemia, unspecified; E83.30 Disorder of phosphorus metabolism, unspecified; Z79.899 Other long term (current) drug therapy; T82.868A Thrombosis due to vascular prosthetic devices, implants and grafts, initial encounter; E87.2 Acidosis; E87.1 Hypo-osmolality and hyponatremia; R50.81 Fever presenting with conditions classified elsewhere; Z88.1 Allergy status to other antibiotic agents; K85.20 Alcohol induced acute pancreatitis without necrosis or infection; S32.020G Wedge compression fracture of second lumbar vertebra, subsequent encounter for fracture with delayed healing; G95.29 Other cord compression; Y71.2 Prosthetic and other implants, materials and accessory cardiovascular devices associated with adverse incidents

== ENCOUNTER 2019-07-13 15:44 | Inpatient (IN) ==
[2019-07-13] MEDS ORDERED: MULTI-VITAMIN INFUSION 10 ML, THIAMINE HCL 100 MG, FOLIC ACID 1 MG in SODIUM CHLORIDE 0... IV ONE (16:42)
--- NOTE | 2019-07-13 16:57 | XRay Report ---
XR chest 1V portable CLINICAL HISTORY: weakness mental status change COMPARISON STUDY: 04/17/2019 FINDINGS: Potential development of subdiaphragmatic free air on the right. Lungs otherwise remain robyn ar. Diaphragms are smooth. IMPRESSION: Possible subdiaphragmatic free air. The chest is otherwise negative. ACT 112: Negative or not required by law. The above report was generated using voice recognition software. It may contain grammatical, syntax or spelling errors. Electronically signed by: Mj Smith M.D. 07/13/2019 4:56 PM
[2019-07-13 17:26] LABS: Basophils # (auto) 0.03 K/uL (0-0.2); Basophils % (auto) 0.3 %; Eosinophils # (auto) 0.05 K/uL (0-0.5); Eosinophils % (auto) 0.6 %; Hematocrit (blood only) 42.2 % (37-47); Hemoglobin 14.5 g/dL (12.0-16.0); Immature Granulocytes # (auto) 0.01 K/uL (0.00-0.02); Immature Granulocytes % (auto) 0.1 %; Lymphocytes # (auto) 1.35 K/uL (1.2-3.4); Lymphocytes % (auto) 15.4 %; Mean Corpuscular Hemoglobin 25.6 pg (25-34); Mean Corpuscular Hgb Conc 34.4 g/dL (32-36); Mean Corpuscular Volume 74.6 fL (80-100); Monocytes # (auto) 0.33 K/uL (0.11-0.59); Monocytes % (auto) 3.8 %; Neutrophils # (auto) 6.99 K/uL (1.4-6.5); Neutrophils % (auto) 79.8 %; Platelet Count 169 K/uL (130-400); RDW Standard Deviation 58.9 fL (36.4-46.3); Red Blood Count 5.66 M/uL (4.2-5.4); White Blood Count 8.76 K/uL (4.8-10.8)
[2019-07-13 17:35] LABS: Prothrombin Time 10.9 Seconds (9.0-12.0)
[2019-07-13 17:47] LABS: Acanthocytes 1+; Anisocytosis Present; Ovalocytes 1+; Schistocytes 1+
[2019-07-13 17:48] LABS: Alanine Aminotransferase 109 U/L (12-78); Albumin Level 4.3 gm/dl (3.4-5.0); Aspartate Aminotransferase 240 U/L (15-37); Blood Urea Nitrogen 5 mg/dl (7-18); Calcium 8.6 mg/dl (8.5-10.1); Carbon Dioxide 20 mmol/L (21-32); Chloride 103 mmol/L (98-107); Creatinine Clr Calc Pharmacy 101.2 ml/min; Est GFR (African American) 118.9; Est GFR (Non-African American) 102.6; Glucose 113 mg/dl (70-99); Magnesium 2.4 mg/dl (1.8-2.4); Potassium 3.7 mmol/L (3.5-5.1); Sodium 135 mmol/L (136-145)
[2019-07-13 17:57] LABS: Alkaline Phosphatase 251 U/L (45-117); Bilirubin,Total 0.8 mg/dl (0.2-1); Creatine Kinase 195 U/L (26-192); Globulin 4.3 gm/dl (2.5-4.0); Total Protein 8.6 gm/dl (6.4-8.2); Troponin I < 0.015 ng/ml (0-0.045)
--- NOTE | 2019-07-13 20:17 | CT Scan Report ---
CT abd pelvis wo con CT DOSE: 256.33 mGy.cm HISTORY: r/o free air TECHNIQUE: Multiaxial CT images of the abdomen and pelvis were performed without contrast. A dose lo wering technique was utilized adhering to the principles of ALARA. COMPARISON STUDY: 04/17/2019 Findings: The free air previously described in the right subdiaphragmatic region appears to be a dist ended loop of bowel. There may be a very small component of extraluminal air although this also may r elate to an anastomotic postoperative line. Findings of a gastric bypass type procedure again noted. Bowel pattern is nonobstructive. Bladder is midline. Findings consistent with a prior left hip pinning procedure again noted. IMPRESSION: 1. The free intraperitoneal air previously described appears to be primarily within the lumen of a di stended loop of bowel within the right upper quadrant. 2. Although it is possible that a minimal component of free air is present, this also appears to be c ontained within and immediately adjacent loop of nondistended bowel. Free air is therefore considered unlikely. 3. Pre-existing changes of fatty replacement of the liver as well as gastric bypass type procedure ar e again noted. ACT 112: Negative or not required by law. The above report was generated using voice recognition software. It may contain grammatical, syntax or spelling errors. Electronically signed by: Mj Smith M.D. 07/13/2019 8:16 PM
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
[2019-07-13] MEDS ORDERED: LORazepam 1 MG TAB PO STA (22:41)
[2019-07-13] MEDS ORDERED: ATIVAN IV ALCOHOL WITHDRAWL IV PRN (23:43)
[2019-07-13] MEDS ORDERED: GABAPENTIN 1200MG ALCOHOL WITHDRAWAL LOAD PO STA (23:43)
[2019-07-13] MEDS ORDERED: LORazepam 2 MG/4 ML VIAL IV PRN (23:43)
[2019-07-13] MEDS ORDERED: LORazepam 3 MG/6 ML VIAL IV PRN (23:43)
[2019-07-13] MEDS ORDERED: NITROGLYCERIN SL 0.4 MG/TAB TAB SL PRN (23:43)
[2019-07-13] MEDS ORDERED: LORazepam 1 MG/2 ML VIAL IV PRN (23:43)
[2019-07-14] MEDS ORDERED: GABAPENTIN 600 MG TAB PO SCH
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
[2019-07-14] MEDS: FOLIC ACID 1 MG in SYRINGE 9.8 ML IV SCH ×2 (01:03→08:06)
[2019-07-14] MEDS: THIAMINE HCL 100 MG in SYRINGE 9 ML IV SCH ×2 (01:03→08:05)
[2019-07-14] MEDS: SUCRALFATE 1 GM TAB PO SCH ×5 (05:27→22:03)
[2019-07-14] MEDS: GABAPENTIN 600 MG TAB PO SCH ×3 (05:27→22:03)
[2019-07-14 07:34] LABS: Mean Corpuscular Hgb Conc 32.5 g/dL (32-36)
[2019-07-14 07:38] LABS: Hematocrit (blood only) 39.7 % (37-47); Hemoglobin 12.9 g/dL (12.0-16.0); Mean Corpuscular Hemoglobin 25.2 pg (25-34); Mean Corpuscular Volume 77.7 fL (80-100); RDW Coefficient of Variation 22.2 % (11.5-14.5); Red Blood Count 5.11 M/uL (4.2-5.4); White Blood Count 8.45 K/uL (4.8-10.8)
[2019-07-14] MEDS: FERROUS SULFATE 325 MG TAB PO SCH (08:01)
[2019-07-14] MEDS: CITALOPRAM 20 MG TAB PO SCH (08:01)
[2019-07-14] MEDS: PANTOprazole 40 MG TAB PO SCH ×2 (08:01→22:04)
[2019-07-14 08:09] LABS: Basophils # (auto) 0.04 K/uL (0-0.2); Basophils % (auto) 0.5 %; Eosinophils % (auto) 1.2 %; Immature Granulocytes # (auto) 0.02 K/uL (0.00-0.02); Immature Granulocytes % (auto) 0.2 %; Lymphocytes # (auto) 1.14 K/uL (1.2-3.4); Lymphocytes % (auto) 13.5 %; Monocytes # (auto) 0.39 K/uL (0.11-0.59); Monocytes % (auto) 4.6 %; Neutrophils # (auto) 6.76 K/uL (1.4-6.5); Platelet Count 111 K/uL (130-400)
[2019-07-14 08:15] LABS: BUN Creatinine Ratio 23.4 (10-20); Calcium 8.7 mg/dl (8.5-10.1); Creatinine Clr Calc Pharmacy 99.8 ml/min; Est GFR (African American) 122.4; Est GFR (Non-African American) 105.6; Magnesium 2.3 mg/dl (1.8-2.4); Potassium 3.3 mmol/L (3.5-5.1)
[2019-07-14 08:25] LABS: Acanthocytes 1+; Echinocytes 1+; Pappenheimer Bodies Occasional; Platelet Estimate Decreased (Normal)
[2019-07-14 08:41] LABS: Vitamin B12 977 pg/ml (211-911)
[2019-07-14 08:42] LABS: Folate (Folic Acid) > 24.00 ng/ml (>5.38)
[2019-07-14 08:49] LABS: Appearance Urine Turbid (Clear); Bacteria Urine Automated 4+ (Negative); Bilirubin Urine Negative (Negative); Blood Urine 2+ (Negative); Color Urine Dark Yellow; Epithelial Cell Urine Auto >30 /lpf (0-5); Glucose Urine UA Negative (Negative); Ketones Urine 3+ (Negative); Leukocyte Esterase Urine 1+ (Negative); Nitrite Urine Negative (Negative); Protein Urine 1+ (Negative); Specific Gravity Urine 1.022 (1.000-1.030); Urobilinogen Urine Negative (Negative); WBC Urine Automated >30 /hpf (0-5); pH Urine 5.5 (4.5-7.5)
[2019-07-14] MEDS ORDERED: ACETAMINOPHEN 1000 MG/100 ML IV IV STA (10:21)
[2019-07-14] MEDS ORDERED: ACETAMINOPHEN 325 MG TAB PO PRN (10:22)
[2019-07-14] MEDS ORDERED: SODIUM CHLORIDE 0.9% 1000ML 500 ML IV ONE (11:01)
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
[2019-07-14] MEDS ORDERED: METOPROLOL TARTRATE 1 MG/ML VIAL IV PRN (11:03)
[2019-07-14] MEDS: OXYCODONE HCL IR 5 MG TAB (IMMEDIATE RELEASE) PO PRN ×3 (11:40→23:53)
[2019-07-14] MEDS ORDERED: POTASSIUM CHLORIDE 20 MEQ TABCR PO STA (11:55)
[2019-07-14] MEDS: CHOLECALCIFEROL (VITAMIN D) 400 UNITS TABLET PO SCH (16:26)
[2019-07-14] MEDS: ZOLPIDEM TARTRATE 5 MG TAB PO PRN (23:53)
[2019-07-15] MEDS: GABAPENTIN 600 MG TAB PO SCH ×2 (03:53→12:15)
[2019-07-15] MEDS: OXYCODONE HCL IR 5 MG TAB (IMMEDIATE RELEASE) PO PRN ×4 (06:11→21:01)
[2019-07-15] MEDS: LOPERAMIDE HCL 2 MG CAP PO PRN ×4 (06:11→21:00)
--- NOTE | 2019-07-15 07:18 | Electrocardiogram Report ---
Test Reason : Blood Pressure : / mmHG Vent. Rate : 116 BPM Atrial Rate : 116 BPM P-R Int : 166 ms QRS Dur : 096 ms QT Int : 348 ms P-R-T Axes : 030 -46 062 degrees QTc Int : 483 ms Sinus tachycardia Left anterior fascicular block Anteroseptal infarct (cited on or before 17-APR-2019) Abnormal ECG When compared with ECG of 17-APR-2019 12:50, Left anterior fascicular block is now Present Confirmed by Andriy Calhoun ([id number]) on 07/15/2019 7:17:43 AM Referred By: REFERRED SELF Confirmed By:Andriy Calhoun
[2019-07-15 07:34] LABS: Acanthocytes 1+; Anisocytosis Present; Basophils # (auto) 0.01 K/uL (0-0.2); Basophils % (auto) 0.3 %; Eosinophils # (auto) 0.08 K/uL (0-0.5); Eosinophils % (auto) 2.4 %; Hematocrit (blood only) 40.3 % (37-47); Hemoglobin 13.2 g/dL (12.0-16.0); Immature Granulocytes # (auto) 0.01 K/uL (0.00-0.02); Immature Granulocytes % (auto) 0.3 %; Lymphocytes # (auto) 0.96 K/uL (1.2-3.4); Lymphocytes % (auto) 28.6 %; Mean Corpuscular Hemoglobin 25.6 pg (25-34); Mean Corpuscular Hgb Conc 32.8 g/dL (32-36); Mean Corpuscular Volume 78.3 fL (80-100); Monocytes # (auto) 0.22 K/uL (0.11-0.59); Monocytes % (auto) 6.5 %; Neutrophils # (auto) 2.08 K/uL (1.4-6.5); Neutrophils % (auto) 61.9 %; Nucleated RBC # (auto) 0.03 K/uL (0-0); Nucleated RBC % (auto) 0.8 %; Pappenheimer Bodies Occasional; Platelet Count 64 K/uL (130-400); Platelet Estimate Decreased (Normal); RDW Coefficient of Variation 21.8 % (11.5-14.5); RDW Standard Deviation 61.1 fL (36.4-46.3); Red Blood Count 5.15 M/uL (4.2-5.4); White Blood Count 3.36 K/uL (4.8-10.8)
[2019-07-15 07:43] LABS: Albumin Level 3.5 gm/dl (3.4-5.0); BUN Creatinine Ratio 23.8 (10-20); Calcium 8.5 mg/dl (8.5-10.1); Creatinine Clr Calc Pharmacy 76.2 ml/min; Est GFR (African American) 109.3; Est GFR (Non-African American) 94.3; Potassium 3.6 mmol/L (3.5-5.1)
[2019-07-15 08:03] LABS: Albumin Globulin Ratio 0.9 (0.9-2); Bilirubin,Total 1.7 mg/dl (0.2-1); Globulin 3.9 gm/dl (2.5-4.0); Total Protein 7.4 gm/dl (6.4-8.2)
[2019-07-15] MEDS: FERROUS SULFATE 325 MG TAB PO SCH (08:16)
[2019-07-15] MEDS: CHOLECALCIFEROL (VITAMIN D) 400 UNITS TABLET PO SCH (08:16)
[2019-07-15] MEDS: CITALOPRAM 20 MG TAB PO SCH (08:17)
[2019-07-15] MEDS: SUCRALFATE 1 GM TAB PO SCH ×4 (08:17→21:01)
[2019-07-15] MEDS: PANTOprazole 40 MG TAB PO SCH ×2 (08:17→21:00)
[2019-07-15] MEDS: FOLIC ACID 1 MG in SYRINGE 9.8 ML IV SCH (08:18)
[2019-07-15] MEDS: THIAMINE HCL 100 MG in SYRINGE 9 ML IV SCH (08:18)
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
[2019-07-15] MEDS: ONDANSETRON INJ 2 MG/ML 2 ML VIAL IV PRN (14:39)
[2019-07-15] MEDS: ZOLPIDEM TARTRATE 5 MG TAB PO PRN (22:07)
[2019-07-16] MEDS: GABAPENTIN 600 MG TAB PO SCH ×2 (00:16→11:56)
[2019-07-16] MEDS: OXYCODONE HCL IR 5 MG TAB (IMMEDIATE RELEASE) PO PRN ×6 (00:59→21:24)
[2019-07-16] MEDS: ONDANSETRON INJ 2 MG/ML 2 ML VIAL IV PRN ×2 (04:07→06:32)
[2019-07-16] MEDS: LOPERAMIDE HCL 2 MG CAP PO PRN (06:30)
[2019-07-16] MEDS: SUCRALFATE 1 GM TAB PO SCH ×4 (06:30→21:25)
[2019-07-16 07:41] LABS: Mean Corpuscular Hgb Conc 31.8 g/dL (32-36)
[2019-07-16 07:49] LABS: Hematocrit (blood only) 38.7 % (37-47); Hemoglobin 12.3 g/dL (12.0-16.0); Mean Corpuscular Hemoglobin 25.3 pg (25-34); Mean Corpuscular Volume 79.5 fL (80-100); RDW Coefficient of Variation 21.8 % (11.5-14.5); RDW Standard Deviation 62.1 fL (36.4-46.3); Red Blood Count 4.87 M/uL (4.2-5.4)
[2019-07-16] MEDS: CITALOPRAM 20 MG TAB PO SCH (08:04)
[2019-07-16] MEDS: FERROUS SULFATE 325 MG TAB PO SCH (08:04)
[2019-07-16] MEDS: CHOLECALCIFEROL (VITAMIN D) 400 UNITS TABLET PO SCH (08:05)
[2019-07-16] MEDS: PANTOprazole 40 MG TAB PO SCH ×2 (08:05→21:25)
[2019-07-16] MEDS: THIAMINE HCL 100 MG in SYRINGE 9 ML IV SCH ×2 (08:09→09:10)
[2019-07-16] MEDS: FOLIC ACID 1 MG in SYRINGE 9.8 ML IV SCH ×2 (08:09→09:10)
[2019-07-16 08:15] LABS: BUN Creatinine Ratio 24.6 (10-20); C Reactive Protein 0.31 mg/dl (0-0.29); Calcium 8.6 mg/dl (8.5-10.1); Creatinine Clr Calc Pharmacy 77.3 ml/min; Est GFR (African American) 111.1; Est GFR (Non-African American) 95.9; Potassium 3.8 mmol/L (3.5-5.1)
[2019-07-16 08:19] LABS: Anisocytosis Present; Basophils # (auto) 0.01 K/uL (0-0.2); Basophils % (auto) 0.4 %; Eosinophils % (auto) 3.7 %; Lymphocytes # (auto) 1.16 K/uL (1.2-3.4); Monocytes # (auto) 0.29 K/uL (0.11-0.59); Monocytes % (auto) 10.7 %; Neutrophils # (auto) 1.14 K/uL (1.4-6.5); Neutrophils % (auto) 42.2 %; Pappenheimer Bodies 1+; Platelet Count 70 K/uL (130-400); Platelet Estimate Decreased (Normal)
[2019-07-16] MEDS ORDERED: ONDANSETRON 4 MG/5 ML UDP PO PRN (10:56)
[2019-07-16] MEDS ORDERED: LOPERAMIDE HCL 2 MG CAP PO PRN (10:56)
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
[2019-07-16] MEDS: THIAMINE HCL 50 MG TABLET PO SCH (11:56)
[2019-07-16] MEDS: FOLIC ACID 400 MCG TAB PO SCH (11:56)
[2019-07-16] MEDS: ZOLPIDEM TARTRATE 5 MG TAB PO PRN (21:24)
[2019-07-17] MEDS: OXYCODONE HCL IR 5 MG TAB (IMMEDIATE RELEASE) PO PRN ×3 (01:24→09:36)
[2019-07-17] MEDS: FERROUS SULFATE 325 MG TAB PO SCH (08:07)
[2019-07-17] MEDS: CHOLECALCIFEROL (VITAMIN D) 400 UNITS TABLET PO SCH (08:07)
[2019-07-17] MEDS: PANTOprazole 40 MG TAB PO SCH (08:07)
[2019-07-17] MEDS: SUCRALFATE 1 GM TAB PO SCH (08:07)
[2019-07-17] MEDS: THIAMINE HCL 50 MG TABLET PO SCH (08:08)
[2019-07-17] MEDS: FOLIC ACID 400 MCG TAB PO SCH (08:08)
[2019-07-17] MEDS: CITALOPRAM 20 MG TAB PO SCH (08:08)
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
[2019-07-17] MEDS ORDERED: GABAPENTIN 600 MG TAB PO SCH (12:00)
--- NOTE | 2019-07-27 07:14 | Coding Query ---
PRESSURE ULCER DOCUMENTATION To promote full compliance with coding requirements relating to patient care, physician participation is requested in all cases of hcc coders uncertainty. Please assist us with the question(s) below: Please specify the known or suspected type by placing an "X" within the parenthesis (x). Pressure Sores (ulcer) of the Arms was documented only on the ER H&P. If possible, please check the box that provides the specific stage of the pressure sore (ulcer) ( ) Stage I ( ) Stage II ( ) Stage III ( ) Stage IV ( ) Unstageable ( ) Unable to determine ( ) Ruled- Out - there was No Pressure Sores (x ) Other: Please Specify__As far as I know She had bruises from fall. Thank you Thank you Katherin CAGE
== END 2019-07-17 12:53 | DRG 92 ==
LOC: 2N 15:44 → ED 15:44 → 2N 23:19

== ENCOUNTER 2019-08-13 14:21 | Inpatient (IN) ==
[~2019-08-13 14:21] MED LIST changes: -ATV5 PO; -CHOL2000 PO; -CRFL PO; -DLD/2 PO; -DRGTP50 TD; -FLV1 PO; -MIRT15TA3 PO; -MISO1TAB10 PO; -MULT-506 PO; -PANT1TAB4 PO; -THIA100T10 PO; +THIAMINE HCL 100 MG in SYRINGE 9 ML IV SCH
[2019-08-13] MEDS ORDERED: ONDANSETRON INJ 2 MG/ML 2 ML VIAL IV STA (16:44)
[2019-08-13] MEDS ORDERED: PANTOprazole 80 MG in DEXTROSE 5% 100 ML IV ONE (16:44)
[2019-08-13] MEDS ORDERED: FAMOTIDINE 20MG IV PUSH 20 MG/5 ML SYR IV STA (16:44)
[2019-08-13] MEDS ORDERED: SODIUM CHLORIDE 0.9% 1000ML 1,000 ML IV SCH (16:45)
[2019-08-13] MEDS ORDERED: OCTREOTIDE ACETATE 50 MCG in SYRINGE 9.5 ML IV STA (16:57)
[2019-08-13] MEDS ORDERED: PIPERACILLIN/TAZOBACTAM 4.5 GM/120 ML BAG IV ONE (16:59)
[2019-08-13] MEDS ORDERED: PIPERACILL/TAZOBAC CONSULT ACTIVE PRN (16:59)
[2019-08-13] MEDS ORDERED: MULTI-VITAMIN INFUSION 10 ML, THIAMINE HCL 100 MG, FOLIC ACID 1 MG in SODIUM CHLORIDE 0... IV ONE (17:04)
[2019-08-13] MEDS ORDERED: LORazepam 1 MG/2 ML VIAL IV STA (17:04)
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
[2019-08-13 17:14] LABS: Basophils # (auto) 0.04 K/uL (0-0.2); Basophils % (auto) 0.4 %; Eosinophils # (auto) 0.01 K/uL (0-0.5); Eosinophils % (auto) 0.1 %; Hematocrit (blood only) 44.4 % (37-47); Hemoglobin 14.4 g/dL (12.0-16.0); Immature Granulocytes # (auto) 0.02 K/uL (0.00-0.02); Immature Granulocytes % (auto) 0.2 %; Lymphocytes # (auto) 1.51 K/uL (1.2-3.4); Lymphocytes % (auto) 15.3 %; Mean Corpuscular Hemoglobin 26.9 pg (25-34); Mean Corpuscular Hgb Conc 32.4 g/dL (32-36); Mean Corpuscular Volume 82.8 fL (80-100); Mean Platelet Volume 9.2 fL (7.4-10.4); Monocytes % (auto) 5.1 %; Neutrophils # (auto) 7.77 K/uL (1.4-6.5); Neutrophils % (auto) 78.9 %; Platelet Count 263 K/uL (130-400); RDW Coefficient of Variation 23.8 % (11.5-14.5); RDW Standard Deviation 71.6 fL (36.4-46.3); Red Blood Count 5.36 M/uL (4.2-5.4); White Blood Count 9.85 K/uL (4.8-10.8)
--- NOTE | 2019-08-13 17:22 | XRay Report ---
SINGLE VIEW CHEST CLINICAL HISTORY: GI bleed. FINDINGS: An AP, portable, upright chest radiograph is compared to study dated 07/13/2019 and correlat ed with chest CT dated 04/17/2019. The examination is degraded by portable technique and patient rotati on. The cardiomediastinal silhouette is unremarkable. The lungs and pleural spaces are clear. No pne umothorax is seen. The skeletal structures are osteopenic. The bony thorax is grossly intact. Gas-serge led bowel is noted below the right hemidiaphragm. This is similar to previous. Surgical clips are not ed in the left upper quadrant. IMPRESSION: No active disease in the chest. ACT 112: Negative or not required by law. Electronically signed by: Herbie Reese M.D. 08/13/2019 5:21 PM
[2019-08-13 17:28] LABS: INR 1.1 (0.9-1.1); Partial Thromboplastin Ratio 0.9; Partial Thromboplastin Time 24.7 Seconds (21.0-31.0); Prothrombin Time 11.3 Seconds (9.0-12.0)
[2019-08-13 17:31] LABS: Alanine Aminotransferase 40 U/L (12-78); Albumin Level 4.3 gm/dl (3.4-5.0); Aspartate Aminotransferase 45 U/L (15-37); BUN Creatinine Ratio 14.4 (10-20); Blood Urea Nitrogen 11 mg/dl (7-18); Calcium 8.9 mg/dl (8.5-10.1); Carbon Dioxide 17 mmol/L (21-32); Chloride 102 mmol/L (98-107); Est GFR (African American) 102.3; Est GFR (Non-African American) 88.3; Glucose 82 mg/dl (70-99); Lipase 91 U/L (73-393); Potassium 3.6 mmol/L (3.5-5.1); Sodium 139 mmol/L (136-145)
[2019-08-13 17:36] LABS: Alkaline Phosphatase 189 U/L (45-117); Bilirubin,Total 1.6 mg/dl (0.2-1); Globulin 4.4 gm/dl (2.5-4.0); Total Protein 8.7 gm/dl (6.4-8.2); Troponin I < 0.015 ng/ml (0-0.045)
[2019-08-13 17:42] LABS: RBC Morphology Unremarkable
[2019-08-13] MEDS ORDERED: GABAPENTIN 600MG ALCOHOL WITHDRAWAL LOAD PO SCH (18:00)
[2019-08-13] MEDS ORDERED: ATIVAN IV ALCOHOL WITHDRAWL IV SCH (18:00)
[2019-08-13] MEDS ORDERED: METOPROLOL TARTRATE 1 MG/ML VIAL IV PRN (18:24)
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
[2019-08-13 19:25] LABS: Phosphorus 3.8 mg/dl (2.5-4.9)
[2019-08-13] MEDS ORDERED: GABAPENTIN 600 MG TAB PO ONE (19:30)
[2019-08-13] MEDS: OCTREOTIDE ACETATE 500 MCG in 0.9 % SODIUM CHLORIDE 100 ML IV SCH (20:11)
[2019-08-13] MEDS: SODIUM CHLORIDE 0.9% 1000ML 1,000 ML IV SCH (20:17)
[2019-08-13] MEDS ORDERED: LORAZEPAM 3MG IV ACTIVE PROTOCOL IV PRN (20:30)
[2019-08-13] MEDS ORDERED: MoRPHine SULFATE 2 MG/ML CARP IV STA (21:55)
[2019-08-13] MEDS: PANTOprazole 40 MG in SYRINGE 0 ML IV SCH (21:56)
[2019-08-13] MEDS: THIAMINE HCL 100 MG in SYRINGE 9 ML IV SCH (21:57)
[2019-08-13] MEDS: FOLIC ACID 1 MG in SYRINGE 9.8 ML IV SCH (21:57)
[2019-08-13] MEDS: PIPERACILLIN/TAZOBACTAM 3.375 GM in DEXTROSE 5% 100 ML IV SCH (22:00)
[2019-08-13] MEDS: LORazepam 0.5 MG TAB PO STA ×2 (22:43→22:46)
[2019-08-14] MEDS: ACETAMINOPHEN 325 MG TAB PO PRN ×2 (01:00→18:12)
[2019-08-14] MEDS: GABAPENTIN 100 MG CAP PO SCH ×2 (01:01→07:45)
[2019-08-14] MEDS: ONDANSETRON INJ 2 MG/ML 2 ML VIAL IV PRN ×3 (01:49→21:45)
[2019-08-14] MEDS: OCTREOTIDE ACETATE 500 MCG in 0.9 % SODIUM CHLORIDE 100 ML IV SCH (06:30)
[2019-08-14] MEDS: PIPERACILLIN/TAZOBACTAM 3.375 GM in DEXTROSE 5% 100 ML IV SCH ×2 (06:30→15:38)
[2019-08-14] MEDS: SODIUM CHLORIDE 0.9% 1000ML 1,000 ML IV SCH (07:45)
[2019-08-14] MEDS: LORAZEPAM 1MG IV ACTIVE PROTOCOL IV PRN ×4 (07:47→23:52)
[2019-08-14] MEDS: THIAMINE HCL 100 MG in SYRINGE 9 ML IV SCH (07:47)
[2019-08-14] MEDS: PANTOprazole 40 MG in SYRINGE 0 ML IV SCH (07:56)
--- NOTE | 2019-08-14 08:01 | Electrocardiogram Report ---
Test Reason : Blood Pressure : / mmHG Vent. Rate : 120 BPM Atrial Rate : 120 BPM P-R Int : 166 ms QRS Dur : 086 ms QT Int : 320 ms P-R-T Axes : 043 -43 065 degrees QTc Int : 452 ms Poor data quality, interpretation may be adversely affected Sinus tachycardia Left anterior fascicular block Old Anterior infarct (cited on or before 17-APR-2019) Abnormal ECG When compared with ECG of 13-JUL-2019 16:53, No significant change was found Confirmed by Jonah Kirkpatrick ([id number]) on 08/14/2019 8:01:16 AM Referred By: REFERRED SELF Confirmed By:Jonah Kirkpatrick
[2019-08-14 08:23] LABS: Albumin Globulin Ratio 0.9 (0.9-2); Albumin Level 2.8 gm/dl (3.4-5.0); Calcium 7.1 mg/dl (8.5-10.1); Creatinine Clr Calc Pharmacy 86.7 ml/min; Est GFR (African American) 115.3; Est GFR (Non-African American) 99.4; Globulin 3.1 gm/dl (2.5-4.0); Magnesium 1.7 mg/dl (1.8-2.4); Phosphorus 2.6 mg/dl (2.5-4.9); Potassium 3.9 mmol/L (3.5-5.1); Total Protein 5.9 gm/dl (6.4-8.2)
[2019-08-14] MEDS ORDERED: D5W AND 1/2NSS 1,000 ML IV SCH (08:45)
[2019-08-14 08:46] LABS: Hematocrit (blood only) 30.5 % (37-47); Hemoglobin 9.9 g/dL (12.0-16.0); Mean Corpuscular Hemoglobin 26.9 pg (25-34); Mean Corpuscular Hgb Conc 32.5 g/dL (32-36); Mean Corpuscular Volume 82.9 fL (80-100); Mean Platelet Volume 8.9 fL (7.4-10.4); Platelet Count 116 K/uL (130-400); RDW Coefficient of Variation 22.8 % (11.5-14.5); RDW Standard Deviation 69.8 fL (36.4-46.3); Red Blood Count 3.68 M/uL (4.2-5.4); White Blood Count 4.01 K/uL (4.8-10.8)
[2019-08-14 08:47] LABS: Anisocytosis Present; Basophils # (auto) 0.02 K/uL (0-0.2); Basophils % (auto) 0.5 %; Eosinophils # (auto) 0.05 K/uL (0-0.5); Eosinophils % (auto) 1.2 %; Howell-Jolly Bodies 1+; Hypochromasia Present; Immature Granulocytes # (auto) 0.01 K/uL (0.00-0.02); Immature Granulocytes % (auto) 0.2 %; Lymphocytes # (auto) 1.03 K/uL (1.2-3.4); Lymphocytes % (auto) 25.7 %; Monocytes # (auto) 0.32 K/uL (0.11-0.59); Neutrophils # (auto) 2.58 K/uL (1.4-6.5); Neutrophils % (auto) 64.4 %; Platelet Estimate Normal (Normal); Schistocytes 1+
[2019-08-14] MEDS: MAGNESIUM SULFATE / D5W 1 GM/100 ML BAG IV SCH ×2 (08:55→10:17)
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
[2019-08-14] MEDS ORDERED: PANTOprazole 40 MG in DEXTROSE 5% 100 ML IV SCH (09:15)
[2019-08-14] MEDS ORDERED: Nursing to Pharmacy Communication SCH (10:15)
[2019-08-14] MEDS: FOLIC ACID 1 MG in SYRINGE 9.8 ML IV SCH (10:17)
--- NOTE | 2019-08-14 11:46 | XRay Report ---
KUB CLINICAL HISTORY: Abdominal pain. Vomiting. COMPARISON STUDY: CT of the abdomen and pelvis July 12, 2018. FINDINGS: A right lower quadrant device is noted. Left femoral internal fixation is partially imaged. There are bowel anastomoses and surgical marleen. There is no evidence for a bowel obstruction. Ther e is possible wall thickening of the descending colon, suboptimally assessed by radiography. IMPRESSION: 1. No evidence for a bowel obstruction. 2. Possible wall thickening of the descending colon, suboptimally assessed by radiography. This could reflect a colitis. ACT 112: Negative or not required by law. Electronically signed by: Benedict Vaughn M.D. 08/14/2019 11:44 AM
[2019-08-14] MEDS ORDERED: LIDOCAINE HCL 2% 2 ML VIAL/AMP(20MG/ML) INFIL ONE (14:05)
[2019-08-14] MEDS ORDERED: PROPOFOL IV EMULSION 10 MG/ML 20 ML VIAL IV ONE (14:05)
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
[2019-08-14] MEDS ORDERED: MIDAZOLAM HCL 1 MG/ML 2ML VIAL ONE (14:20)
[2019-08-14] MEDS ORDERED: ONDANSETRON INJ 2 MG/ML 2 ML VIAL ONE (14:41)
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
--- NOTE | 2019-08-14 14:57 | GI REPORT ---
Patient Name: Siena Saldana Procedure Date: 08/14/2019 2:14 PM Date of : 1965 Admit Type: Inpatient Age: 54 Gender: Female Attending MD: Kevin Coy MD Procedure: Upper GI endoscopy Providers: Kevin Coy MD Referring MD: Daniel Vanegas M.d. Indications: Hematemesis Medicines: See the Anesthesia note for documentation of the administered medications Complications: No immediate complications. Estimated Blood Loss: Estimated blood loss: none. Procedure: Pre-Anesthesia Assessment: - Prior to the procedure, a History and Physical was performed, and patient medications, allergies and sensitivities were reviewed. The patient's tolerance of previous anesthesia was reviewed. - The risks and benefits of the procedure and the sedation options and risks were discussed with the patient. All questions were answered and informed consent was obtained. - Patient identification and proposed procedure were verified prior to the procedure by the physician and the nurse. The procedure was verified in the pre-procedure area. - Pre-procedure physical examination revealed no contraindications to sedation. - After reviewing the risks and benefits, the patient was deemed in satisfactory condition to undergo the procedure. After obtaining informed consent, the endoscope was passed under direct vision. Throughout the procedure, the patient's blood pressure, pulse, and oxygen saturations were monitored continuously. The Scope was introduced through the mouth, and advanced to the afferent and efferent jejunal loops. The upper GI endoscopy was accomplished without difficulty. The patient tolerated the procedure well. Findings: Grade I varices were found in the distal esophagus. Evidence of a gastric bypass was found. A gastric pouch with a normal size was found. The staple line appeared intact. The gastrojejunal anastomosis was characterized by healthy appearing mucosa. This was traversed. The [id number] limb was characterized by healthy appearing mucosa. The jejunojejunal anastomosis was characterized by healthy appearing mucosa. The examined jejunum was normal. Impression: - Grade I esophageal varices. - Gastric bypass with a normal-sized pouch and intact staple line. Gastrojejunal anastomosis characterized by healthy appearing mucosa, mildly stenotic. Old clips seen. - No blood seen. - Normal examined jejunum. - No specimens collected. Recommendation: - [facility]. Isabel Guzman MD 08/14/2019 2:57:05 PM This report has been signed electronically. Note Initiated On: 08/14/2019 2:14 PM Number of Addenda: 0 I attest to the content of the Intraoperative Record and orders documented therein, exceptions below {[id number]}
--- NOTE | 2019-08-14 15:53 | Anesthesiology Progress Note ---
Date of Service August 14, 2019 Anesthesia Post Procedure Vital Signs Vital Signs: Temp Pulse Pulse Resp BP BP BP 08/14/19 15:25 75 16 143/81 H 08/14/19 15:08 72 16 139/85 08/14/19 14:53 73 16 140/73 08/14/19 13:56 37.3 C 87 16 125/87 08/14/19 12:48 37.0 C 88 18 119/72 08/14/19 07:50 37.0 C 93 H 20 111/70 08/14/19 07:23 91 H 08/14/19 04:44 36.8 C 91 H 20 122/74 08/13/19 23:00 37.4 C 111 H 20 103/65 08/13/19 22:20 101 H 08/13/19 22:10 37.3 C 109 H 110 H 16 128/79 08/13/19 19:11 108 H 27 H 110/81 08/13/19 18:00 105 H 25 H 137/98 08/13/19 17:41 116 H 23 105/94 08/13/19 17:40 114 H 23 105/94 Pulse Ox 08/14/19 15:25 98 08/14/19 15:08 100 08/14/19 14:53 97 08/14/19 13:56 99 08/14/19 12:48 96 08/14/19 07:50 94 08/14/19 07:23 08/14/19 04:44 93 08/13/19 23:00 92 08/13/19 22:20 08/13/19 22:10 95 08/13/19 19:11 08/13/19 18:00 100 08/13/19 17:41 96 08/13/19 17:40 98 Pain Intensity Back: Pain Intensity: 9 Medial Abdomen: Pain Intensity: 6 Generalized: Pain Intensity: 9 Transfer of Care Handoff Completed per policy Notes Mental Status: alert / awake / arousable and participated in evaluation Patient Amnestic to Procedure: Yes Nausea / Vomiting: adequately controlled Pain: adequately controlled Airway Patency, RR, SpO2: stable & adequate BP & HR: stable & adequate Hydration State: stable & adequate Anesthetic Complications: no major complications apparent and Pt Satisfied with anesthetic care
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
[2019-08-14 17:14] LABS: Eosinophils # (auto) 0.04 K/uL (0-0.5); Eosinophils % (auto) 1.3 %; Hematocrit (blood only) 36.7 % (37-47); Hemoglobin 11.5 g/dL (12.0-16.0); Lymphocytes # (auto) 0.93 K/uL (1.2-3.4); Lymphocytes % (auto) 31.3 %; Mean Corpuscular Hemoglobin 26.6 pg (25-34); Mean Corpuscular Volume 84.8 fL (80-100); Monocytes # (auto) 0.15 K/uL (0.11-0.59); Monocytes % (auto) 5.1 %; Neutrophils # (auto) 1.85 K/uL (1.4-6.5); Neutrophils % (auto) 62.3 %; Platelet Count 120 K/uL (130-400); Red Blood Count 4.33 M/uL (4.2-5.4); White Blood Count 2.97 K/uL (4.8-10.8)
[2019-08-14 17:15] LABS: Mean Corpuscular Hgb Conc 31.3 g/dL (32-36)
[2019-08-14 17:36] LABS: Albumin Level 3.4 gm/dl (3.4-5.0); Anisocytosis Present; BUN Creatinine Ratio 12.3 (10-20); Calcium 8.2 mg/dl (8.5-10.1); Creatinine Clr Calc Pharmacy 72.4 ml/min; Est GFR (African American) 97.7; Est GFR (Non-African American) 84.3; Magnesium 2.4 mg/dl (1.8-2.4); Potassium 3.5 mmol/L (3.5-5.1)
[2019-08-14 17:38] LABS: Bilirubin,Total 2.2 mg/dl (0.2-1); Globulin 3.5 gm/dl (2.5-4.0); Phosphorus 2.1 mg/dl (2.5-4.9); Total Protein 6.9 gm/dl (6.4-8.2)
[2019-08-14] MEDS: LORAZEPAM 2MG IV ACTIVE PROTOCOL IV PRN ×2 (19:22→21:45)
[2019-08-14] MEDS: CALCIUM 600MG + VIT D 400 IU TAB PO SCH (19:23)
[2019-08-14] MEDS: MIRTAZAPINE TAB 15 MG TAB PO SCH (19:23)
[2019-08-14] MEDS ORDERED: GABAPENTIN 600 MG TAB PO SCH (20:00)
[2019-08-14] MEDS ORDERED: PANTOprazole 40 MG in SYRINGE 0 ML IV SCH (21:00)
[2019-08-15] MEDS: ONDANSETRON INJ 2 MG/ML 2 ML VIAL IV PRN ×4 (03:51→23:41)
[2019-08-15 05:40] LABS: Basophils # (auto) 0.01 K/uL (0-0.2); Basophils % (auto) 0.3 %; Eosinophils # (auto) 0.08 K/uL (0-0.5); Eosinophils % (auto) 2.7 %; Hematocrit (blood only) 34.5 % (37-47); Hemoglobin 10.6 g/dL (12.0-16.0); Lymphocytes # (auto) 0.66 K/uL (1.2-3.4); Lymphocytes % (auto) 22.1 %; Mean Corpuscular Hemoglobin 25.9 pg (25-34); Mean Corpuscular Hgb Conc 30.7 g/dL (32-36); Mean Corpuscular Volume 84.1 fL (80-100); Mean Platelet Volume 8.8 fL (7.4-10.4); Monocytes # (auto) 0.21 K/uL (0.11-0.59); Neutrophils # (auto) 2.02 K/uL (1.4-6.5); Neutrophils % (auto) 67.9 %; Platelet Count 117 K/uL (130-400); RDW Coefficient of Variation 21.3 % (11.5-14.5); RDW Standard Deviation 66.2 fL (36.4-46.3); White Blood Count 2.98 K/uL (4.8-10.8)
[2019-08-15] MEDS ORDERED: ACETAMINOPHEN 10MG/ML PEDIATRIC DOSING IV PRN (06:07)
[2019-08-15 06:09] LABS: Albumin Level 3.1 gm/dl (3.4-5.0); BUN Creatinine Ratio 15.1 (10-20); Calcium 8.2 mg/dl (8.5-10.1); Creatinine Clr Calc Pharmacy 102.1 ml/min; Est GFR (African American) 121.7; Magnesium 1.9 mg/dl (1.8-2.4)
[2019-08-15] MEDS ORDERED: POTASSIUM CHLORIDE 20 MEQ/15 ML UDC PO STA (06:12)
[2019-08-15 06:23] LABS: Globulin 3.1 gm/dl (2.5-4.0); Phosphorus 1.7 mg/dl (2.5-4.9); Total Protein 6.2 gm/dl (6.4-8.2)
[2019-08-15] MEDS: POTASSIUM CHLORIDE / WTR 10 MEQ/100 ML PLCT IV SCH ×4 (06:29→14:07)
[2019-08-15] MEDS ORDERED: ACETAMINOPHEN 1,000 MG/100 ML VIAL IV PRN (06:33)
[2019-08-15 06:54] LABS: Anisocytosis Present; Hypochromasia Present; Pappenheimer Bodies 1+
[2019-08-15] MEDS: ACETAMINOPHEN 1,000 MG/100 ML VIAL IV PRN (07:45)
[2019-08-15] MEDS: LORAZEPAM 2MG IV ACTIVE PROTOCOL IV PRN ×5 (07:45→21:26)
[2019-08-15] MEDS: CALCIUM 600MG + VIT D 400 IU TAB PO SCH ×2 (07:53→21:26)
[2019-08-15] MEDS: CITALOPRAM 20 MG TAB PO SCH (07:53)
[2019-08-15] MEDS: CHOLECALCIFEROL (VITAMIN D) 400 UNITS TABLET PO SCH (07:54)
[2019-08-15] MEDS: PANTOprazole 40 MG TAB PO SCH (07:54)
[2019-08-15] MEDS: THIAMINE HCL 100 MG in SYRINGE 9 ML IV SCH (08:13)
[2019-08-15] MEDS: FOLIC ACID 1 MG in SYRINGE 9.8 ML IV SCH (08:13)
--- NOTE | 2019-08-15 08:43 | Anesthesiology Progress Note ---
Date of Service August 15, 2019 Anesthesia Post Procedure Vital Signs Vital Signs: Temp Pulse Pulse Resp BP BP Pulse Ox 08/15/19 07:53 37.1 C 85 22 125/86 96 08/15/19 07:30 101 H 08/15/19 05:49 36.8 C 70 16 112/69 96 08/15/19 03:57 36.8 C 86 20 138/90 96 08/15/19 01:42 36.9 C 70 16 121/76 94 08/15/19 00:16 36.5 C 69 18 159/76 H 94 08/15/19 00:00 71 08/14/19 23:44 36.7 C 82 16 139/92 94 08/14/19 20:24 37.1 C 81 20 129/83 91 08/14/19 16:30 65 08/14/19 15:54 36.9 C 77 18 140/79 99 08/14/19 15:25 75 16 143/81 H 98 08/14/19 15:08 72 16 139/85 100 08/14/19 14:53 73 16 140/73 97 08/14/19 13:56 37.3 C 87 16 125/87 99 08/14/19 12:48 37.0 C 88 18 119/72 96 Pain Intensity Back: Pain Intensity: 9 Medial Abdomen: Pain Intensity: 6 Generalized: Pain Intensity: 9 Notes Mental Status: alert / awake / arousable and participated in evaluation Patient Amnestic to Procedure: Yes Nausea / Vomiting: adequately controlled Pain: adequately controlled Airway Patency, RR, SpO2: stable & adequate BP & HR: stable & adequate Hydration State: stable & adequate Anesthetic Complications: no major complications apparent and Pt Satisfied with anesthetic care
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
[2019-08-15] MEDS: LORazepam 0.5 MG/1 ML VIAL IV PRN (10:40)
[2019-08-15] MEDS ORDERED: OXYCODONE HCL IR 5 MG TAB (IMMEDIATE RELEASE) ONE (12:46)
[2019-08-15] MEDS ORDERED: HYDROmorphone INJ 0.5 MG/0.5 ML SYR IV PRN (14:54)
[2019-08-15] MEDS: OXYCODONE HCL IR 5 MG TAB (IMMEDIATE RELEASE) PO PRN (18:04)
[2019-08-15] MEDS ORDERED: GABAPENTIN 400 MG CAP PO SCH (20:00)
[2019-08-15] MEDS: MIRTAZAPINE TAB 15 MG TAB PO SCH (21:26)
[2019-08-16] MEDS: OXYCODONE HCL IR 5 MG TAB (IMMEDIATE RELEASE) PO PRN ×3 (00:36→16:46)
[2019-08-16] MEDS: LORAZEPAM 1MG IV ACTIVE PROTOCOL IV PRN (01:54)
[2019-08-16] MEDS: CITALOPRAM 20 MG TAB PO SCH (08:57)
[2019-08-16] MEDS: CALCIUM 600MG + VIT D 400 IU TAB PO SCH ×2 (08:57→21:33)
[2019-08-16] MEDS: PANTOprazole 40 MG TAB PO SCH (08:58)
[2019-08-16] MEDS: FOLIC ACID 1 MG in SYRINGE 9.8 ML IV SCH (08:58)
[2019-08-16] MEDS: THIAMINE HCL 100 MG in SYRINGE 9 ML IV SCH (08:59)
[2019-08-16] MEDS: CHOLECALCIFEROL (VITAMIN D) 400 UNITS TABLET PO SCH (08:59)
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
[2019-08-16 10:35] LABS: Hemoglobin 10.5 g/dL (12.0-16.0); Mean Corpuscular Hemoglobin 26.5 pg (25-34); Mean Corpuscular Hgb Conc 30.9 g/dL (32-36); Mean Corpuscular Volume 85.9 fL (80-100); RDW Standard Deviation 69.2 fL (36.4-46.3); Red Blood Count 3.96 M/uL (4.2-5.4); White Blood Count 2.77 K/uL (4.8-10.8)
[2019-08-16 10:52] LABS: BUN Creatinine Ratio 4.9 (10-20); Calcium 8.1 mg/dl (8.5-10.1); Creatinine Clr Calc Pharmacy 70.6 ml/min; Est GFR (African American) 94.8; Est GFR (Non-African American) 81.8; Potassium 3.2 mmol/L (3.5-5.1)
[2019-08-16 11:08] LABS: Anisocytosis Present; Basophils # (auto) 0.02 K/uL (0-0.2); Basophils % (auto) 0.7 %; Echinocytes 1+; Eosinophils # (auto) 0.09 K/uL (0-0.5); Eosinophils % (auto) 3.2 %; Immature Granulocytes # (auto) 0.01 K/uL (0.00-0.02); Immature Granulocytes % (auto) 0.4 %; Lymphocytes # (auto) 0.98 K/uL (1.2-3.4); Lymphocytes % (auto) 35.4 %; Mean Platelet Volume 8.9 fL (7.4-10.4); Monocytes # (auto) 0.15 K/uL (0.11-0.59); Monocytes % (auto) 5.4 %; Neutrophils # (auto) 1.52 K/uL (1.4-6.5); Neutrophils % (auto) 54.9 %; Pappenheimer Bodies 1+; Platelet Count 87 K/uL (130-400); Platelet Estimate Decreased (Normal)
[2019-08-16] MEDS: HYDROmorphone INJ 0.5 MG/0.5 ML SYR IV PRN ×3 (11:51→21:34)
[2019-08-16] MEDS ORDERED: POTASSIUM CHLORIDE 20 MEQ TABCR PO ONE (16:45)
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
[2019-08-16] MEDS ORDERED: GABAPENTIN 100 MG CAP PO SCH (20:00)
[2019-08-16] MEDS: LORazepam 0.5 MG/1 ML VIAL IV PRN (21:34)
[2019-08-16] MEDS: MIRTAZAPINE TAB 15 MG TAB PO SCH (21:34)
[2019-08-17] MEDS: OXYCODONE HCL IR 5 MG TAB (IMMEDIATE RELEASE) PO PRN (00:15)
[2019-08-17] MEDS: HYDROmorphone INJ 0.5 MG/0.5 ML SYR IV PRN ×5 (01:52→21:37)
[2019-08-17] MEDS: ONDANSETRON INJ 2 MG/ML 2 ML VIAL IV PRN ×2 (06:11→18:15)
[2019-08-17 07:58] LABS: Hematocrit (blood only) 35.7 % (37-47); Hemoglobin 11.1 g/dL (12.0-16.0); Mean Corpuscular Hemoglobin 27.1 pg (25-34); Mean Corpuscular Hgb Conc 31.1 g/dL (32-36); Mean Corpuscular Volume 87.1 fL (80-100); RDW Coefficient of Variation 21.9 % (11.5-14.5); RDW Standard Deviation 70.4 fL (36.4-46.3); White Blood Count 3.47 K/uL (4.8-10.8)
[2019-08-17 08:05] LABS: Mean Platelet Volume 9.8 fL (7.4-10.4); Platelet Count 94 K/uL (130-400)
[2019-08-17 08:23] LABS: Basophils # (auto) 0.01 K/uL (0-0.2); Basophils % (auto) 0.3 %; Eosinophils # (auto) 0.08 K/uL (0-0.5); Eosinophils % (auto) 2.3 %; Lymphocytes # (auto) 0.66 K/uL (1.2-3.4); Monocytes # (auto) 0.12 K/uL (0.11-0.59); Monocytes % (auto) 3.5 %; Neutrophils % (auto) 74.9 %
[2019-08-17 08:36] LABS: BUN Creatinine Ratio 10.6 (10-20); Calcium 8.7 mg/dl (8.5-10.1); Creatinine Clr Calc Pharmacy 116.7 ml/min; Est GFR (African American) 127.1; Est GFR (Non-African American) 109.7
[2019-08-17] MEDS: FOLIC ACID 1 MG in SYRINGE 9.8 ML IV SCH (10:07)
[2019-08-17] MEDS: THIAMINE HCL 100 MG in SYRINGE 9 ML IV SCH (10:07)
[2019-08-17] MEDS: CITALOPRAM 20 MG TAB PO SCH (10:08)
[2019-08-17] MEDS: GABAPENTIN 100 MG CAP PO SCH ×3 (10:08→21:27)
[2019-08-17] MEDS: CALCIUM 600MG + VIT D 400 IU TAB PO SCH ×2 (10:09→21:27)
[2019-08-17] MEDS: PANTOprazole 40 MG TAB PO SCH (10:09)
[2019-08-17] MEDS: CHOLECALCIFEROL (VITAMIN D) 400 UNITS TABLET PO SCH (10:09)
[2019-08-17] MEDS: ACETAMINOPHEN 1,000 MG/100 ML VIAL IV PRN (13:40)
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
[2019-08-17] MEDS: MIRTAZAPINE TAB 15 MG TAB PO SCH (21:27)
[2019-08-18] MEDS: HYDROmorphone INJ 0.5 MG/0.5 ML SYR IV PRN ×2 (03:08→08:08)
[2019-08-18] MEDS: LORAZEPAM 1MG IV ACTIVE PROTOCOL IV PRN ×2 (03:57→08:08)
[2019-08-18 06:17] LABS: Hematocrit (blood only) 35.9 % (37-47); Hemoglobin 11.3 g/dL (12.0-16.0); Mean Corpuscular Hemoglobin 27.2 pg (25-34); Mean Corpuscular Hgb Conc 31.5 g/dL (32-36); Mean Corpuscular Volume 86.3 fL (80-100); RDW Coefficient of Variation 21.9 % (11.5-14.5); RDW Standard Deviation 68.7 fL (36.4-46.3); Red Blood Count 4.16 M/uL (4.2-5.4); White Blood Count 2.73 K/uL (4.8-10.8)
[2019-08-18 06:43] LABS: Mean Platelet Volume 9.7 fL (7.4-10.4); Platelet Count 88 K/uL (130-400)
[2019-08-18 06:49] LABS: Anisocytosis Present; Basophils # (auto) 0.01 K/uL (0-0.2); Basophils % (auto) 0.4 %; Calcium 8.6 mg/dl (8.5-10.1); Eosinophils # (auto) 0.07 K/uL (0-0.5); Eosinophils % (auto) 2.6 %; Est GFR (African American) 122.4; Est GFR (Non-African American) 105.6; Lymphocytes # (auto) 0.85 K/uL (1.2-3.4); Lymphocytes % (auto) 31.1 %; Monocytes # (auto) 0.16 K/uL (0.11-0.59); Monocytes % (auto) 5.9 %; Neutrophils # (auto) 1.64 K/uL (1.4-6.5)
[2019-08-18] MEDS: CITALOPRAM 20 MG TAB PO SCH (08:07)
[2019-08-18] MEDS: CHOLECALCIFEROL (VITAMIN D) 400 UNITS TABLET PO SCH (08:07)
[2019-08-18] MEDS: CALCIUM 600MG + VIT D 400 IU TAB PO SCH ×2 (08:07→21:22)
[2019-08-18] MEDS: GABAPENTIN 100 MG CAP PO SCH ×3 (08:07→21:22)
[2019-08-18] MEDS: FOLIC ACID 1 MG in SYRINGE 9.8 ML IV SCH (08:08)
[2019-08-18] MEDS: THIAMINE HCL 100 MG in SYRINGE 9 ML IV SCH (08:08)
[2019-08-18] MEDS: PANTOprazole 40 MG TAB PO SCH (08:08)
[2019-08-18] MEDS ORDERED: LORazepam 1 MG TAB PO PRN (11:46)
[2019-08-18] MEDS: HYDROmorphone HCL 2 MG TAB PO PRN ×3 (13:05→21:34)
[2019-08-18] MEDS: PROMETHAZINE HCL 12.5 MG/10 ML UDP PO PRN (14:50)
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
[2019-08-18] MEDS: MIRTAZAPINE TAB 15 MG TAB PO SCH (21:22)
[2019-08-18] MEDS: LORazepam 0.5 MG TAB PO PRN (22:19)
[2019-08-19] MEDS: HYDROmorphone HCL 2 MG TAB PO PRN ×5 (02:09→22:26)
[2019-08-19] MEDS: LORazepam 0.5 MG TAB PO PRN ×3 (06:08→22:27)
[2019-08-19 06:20] LABS: Hematocrit (blood only) 32.8 % (37-47); Hemoglobin 10.4 g/dL (12.0-16.0); Mean Corpuscular Hemoglobin 27.2 pg (25-34); Mean Corpuscular Hgb Conc 31.7 g/dL (32-36); Mean Corpuscular Volume 85.6 fL (80-100); RDW Coefficient of Variation 22.2 % (11.5-14.5); RDW Standard Deviation 69.8 fL (36.4-46.3); Red Blood Count 3.83 M/uL (4.2-5.4)
[2019-08-19 06:25] LABS: Mean Platelet Volume 9.5 fL (7.4-10.4); Platelet Count 78 K/uL (130-400)
[2019-08-19 06:44] LABS: Anisocytosis Present; Basophils # (auto) 0.01 K/uL (0-0.2); Basophils % (auto) 0.4 %; Eosinophils # (auto) 0.05 K/uL (0-0.5); Eosinophils % (auto) 2.2 %; Immature Granulocytes # (auto) 0.01 K/uL (0.00-0.02); Immature Granulocytes % (auto) 0.4 %; Lymphocytes # (auto) 0.84 K/uL (1.2-3.4); Lymphocytes % (auto) 36.5 %; Monocytes # (auto) 0.19 K/uL (0.11-0.59); Monocytes % (auto) 8.3 %; Neutrophils % (auto) 52.2 %; Polychromasia 1+
[2019-08-19 06:47] LABS: BUN Creatinine Ratio 24.9 (10-20); Calcium 8.5 mg/dl (8.5-10.1); Creatinine Clr Calc Pharmacy 90.8 ml/min; Potassium 3.9 mmol/L (3.5-5.1)
[2019-08-19] MEDS: CITALOPRAM 20 MG TAB PO SCH (08:46)
[2019-08-19] MEDS: THIAMINE HCL 100 MG TAB PO SCH (08:46)
[2019-08-19] MEDS: PANTOprazole 40 MG TAB PO SCH (08:46)
[2019-08-19] MEDS: FOLIC ACID 1 MG TAB PO SCH (08:46)
[2019-08-19] MEDS: CHOLECALCIFEROL (VITAMIN D) 400 UNITS TABLET PO SCH (08:46)
[2019-08-19] MEDS: GABAPENTIN 100 MG CAP PO SCH ×3 (08:46→20:48)
[2019-08-19] MEDS: CALCIUM 600MG + VIT D 400 IU TAB PO SCH ×2 (08:47→20:48)
[2019-08-19] MEDS: SODIUM CHLORIDE 0.9% 1000ML 1,000 ML IV SCH (17:08)
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
[2019-08-19] MEDS: MIRTAZAPINE TAB 15 MG TAB PO SCH (20:48)
[2019-08-20] MEDS: SODIUM CHLORIDE 0.9% 1000ML 1,000 ML IV SCH ×3 (02:50→22:10)
[2019-08-20] MEDS: HYDROmorphone HCL 2 MG TAB PO PRN ×4 (03:54→20:56)
[2019-08-20 06:35] LABS: Hemoglobin 9.7 g/dL (12.0-16.0); Mean Corpuscular Hemoglobin 27.1 pg (25-34); Mean Corpuscular Hgb Conc 31.3 g/dL (32-36); Mean Corpuscular Volume 86.6 fL (80-100); RDW Coefficient of Variation 22.1 % (11.5-14.5); RDW Standard Deviation 70.5 fL (36.4-46.3); Red Blood Count 3.58 M/uL (4.2-5.4); White Blood Count 1.51 K/uL (4.8-10.8)
[2019-08-20 06:38] LABS: Mean Platelet Volume 9.6 fL (7.4-10.4); Platelet Count 77 K/uL (130-400)
[2019-08-20 07:03] LABS: BUN Creatinine Ratio 26.5 (10-20); Calcium 8.3 mg/dl (8.5-10.1); Creatinine Clr Calc Pharmacy 100.3 ml/min; Est GFR (Non-African American) 104.4; Potassium 3.7 mmol/L (3.5-5.1)
[2019-08-20 07:08] LABS: Anisocytosis Present; Basophils # (auto) 0.01 K/uL (0-0.2); Basophils % (auto) 0.7 %; Eosinophils # (auto) 0.03 K/uL (0-0.5); Lymphocytes # (auto) 0.59 K/uL (1.2-3.4); Lymphocytes % (auto) 39.1 %; Monocytes # (auto) 0.26 K/uL (0.11-0.59); Monocytes % (auto) 17.2 %; Neutrophils # (auto) 0.62 K/uL (1.4-6.5); Polychromasia 1+
[2019-08-20] MEDS: CALCIUM 600MG + VIT D 400 IU TAB PO SCH ×2 (08:10→20:58)
[2019-08-20] MEDS: CITALOPRAM 20 MG TAB PO SCH (08:10)
[2019-08-20] MEDS: GABAPENTIN 100 MG CAP PO SCH ×3 (08:11→20:58)
[2019-08-20] MEDS: FOLIC ACID 1 MG TAB PO SCH (08:11)
[2019-08-20] MEDS: PANTOprazole 40 MG TAB PO SCH (08:12)
[2019-08-20] MEDS: THIAMINE HCL 100 MG TAB PO SCH (08:12)
[2019-08-20] MEDS: CHOLECALCIFEROL (VITAMIN D) 400 UNITS TABLET PO SCH (08:12)
[2019-08-20] MEDS: LORazepam 0.5 MG TAB PO PRN ×3 (11:02→23:42)
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
[2019-08-20] MEDS: MIRTAZAPINE TAB 15 MG TAB PO SCH (20:58)
[2019-08-21] MEDS: HYDROmorphone HCL 2 MG TAB PO PRN ×5 (02:15→20:13)
[2019-08-21 06:47] LABS: Hematocrit (blood only) 32.9 % (37-47); Hemoglobin 10.2 g/dL (12.0-16.0); Mean Corpuscular Hemoglobin 27.1 pg (25-34); Mean Corpuscular Volume 87.3 fL (80-100); RDW Standard Deviation 70.1 fL (36.4-46.3); Red Blood Count 3.77 M/uL (4.2-5.4); White Blood Count 1.27 K/uL (4.8-10.8)
[2019-08-21 07:07] LABS: Mean Platelet Volume 9.1 fL (7.4-10.4); Platelet Count 66 K/uL (130-400)
[2019-08-21 07:10] LABS: Anisocytosis Present; Basophils # (auto) 0.01 K/uL (0-0.2); Basophils % (auto) 0.8 %; Eosinophils # (auto) 0.03 K/uL (0-0.5); Eosinophils % (auto) 2.4 %; Immature Granulocytes # (auto) 0.01 K/uL (0.00-0.02); Immature Granulocytes % (auto) 0.8 %; Lymphocytes # (auto) 0.49 K/uL (1.2-3.4); Lymphocytes % (auto) 38.6 %; Monocytes # (auto) 0.29 K/uL (0.11-0.59); Monocytes % (auto) 22.8 %; Neutrophils # (auto) 0.44 K/uL (1.4-6.5); Neutrophils % (auto) 34.6 %; Polychromasia 1+
[2019-08-21 07:16] LABS: BUN Creatinine Ratio 20.5 (10-20); Calcium 8.3 mg/dl (8.5-10.1); Est GFR (African American) 122.4; Est GFR (Non-African American) 105.6; Potassium 3.9 mmol/L (3.5-5.1)
[2019-08-21] MEDS: LORazepam 0.5 MG TAB PO PRN ×3 (08:06→21:39)
[2019-08-21] MEDS: SODIUM CHLORIDE 0.9% 1000ML 1,000 ML IV SCH ×2 (08:07→18:05)
[2019-08-21] MEDS: CALCIUM 600MG + VIT D 400 IU TAB PO SCH ×2 (08:07→20:15)
[2019-08-21] MEDS: CITALOPRAM 20 MG TAB PO SCH (08:07)
[2019-08-21] MEDS: FOLIC ACID 1 MG TAB PO SCH (08:08)
[2019-08-21] MEDS: GABAPENTIN 100 MG CAP PO SCH ×3 (08:08→20:14)
[2019-08-21] MEDS: THIAMINE HCL 100 MG TAB PO SCH (08:08)
[2019-08-21] MEDS: CHOLECALCIFEROL (VITAMIN D) 400 UNITS TABLET PO SCH (08:08)
[2019-08-21] MEDS: PANTOprazole 40 MG TAB PO SCH (08:08)
[2019-08-21 15:43] LABS: Appearance Urine Clear (Clear); Bilirubin Urine Negative (Negative); Blood Urine Negative (Negative); Color Urine Yellow; Glucose Urine UA Negative (Negative); Ketones Urine Negative (Negative); Leukocyte Esterase Urine Negative (Negative); Nitrite Urine Negative (Negative); Protein Urine Negative (Negative); Specific Gravity Urine 1.014 (1.000-1.030); Urobilinogen Urine Negative (Negative); pH Urine 5.5 (4.5-7.5)
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
[2019-08-21] MEDS: MIRTAZAPINE TAB 15 MG TAB PO SCH (20:14)
[2019-08-22] MEDS: HYDROmorphone HCL 2 MG TAB PO PRN ×5 (00:30→21:34)
[2019-08-22] MEDS: LORazepam 0.5 MG TAB PO PRN ×2 (02:57→18:38)
[2019-08-22] MEDS: SODIUM CHLORIDE 0.9% 1000ML 1,000 ML IV SCH ×2 (04:47→14:13)
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
[2019-08-22] MEDS: CALCIUM 600MG + VIT D 400 IU TAB PO SCH ×2 (09:07→20:24)
[2019-08-22] MEDS: CITALOPRAM 20 MG TAB PO SCH (09:08)
[2019-08-22] MEDS: GABAPENTIN 300 MG CAP PO SCH ×3 (09:08→20:24)
[2019-08-22] MEDS: FOLIC ACID 1 MG TAB PO SCH (09:08)
[2019-08-22] MEDS: THIAMINE HCL 100 MG TAB PO SCH (09:09)
[2019-08-22] MEDS: CHOLECALCIFEROL (VITAMIN D) 400 UNITS TABLET PO SCH (09:09)
[2019-08-22] MEDS: PANTOprazole 40 MG TAB PO SCH (09:09)
[2019-08-22] MEDS ORDERED: DICYCLOMINE HCL 10 MG CAP PO PRN (09:35)
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
[2019-08-22] MEDS: MIRTAZAPINE TAB 15 MG TAB PO SCH (20:24)
[2019-08-22] MEDS: ONDANSETRON INJ 2 MG/ML 2 ML VIAL IV PRN (21:50)
[2019-08-23] MEDS: LORazepam 0.5 MG TAB PO PRN ×3 (00:35→18:16)
[2019-08-23] MEDS: HYDROmorphone HCL 2 MG TAB PO PRN ×4 (03:33→22:19)
[2019-08-23] MEDS: CITALOPRAM 20 MG TAB PO SCH (08:16)
[2019-08-23] MEDS: FOLIC ACID 1 MG TAB PO SCH (08:16)
[2019-08-23] MEDS: CALCIUM 600MG + VIT D 400 IU TAB PO SCH ×2 (08:16→21:10)
[2019-08-23] MEDS: THIAMINE HCL 100 MG TAB PO SCH (08:17)
[2019-08-23] MEDS: CHOLECALCIFEROL (VITAMIN D) 400 UNITS TABLET PO SCH (08:17)
[2019-08-23] MEDS: GABAPENTIN 300 MG CAP PO SCH ×3 (08:17→21:10)
[2019-08-23] MEDS: PANTOprazole 40 MG TAB PO SCH (08:17)
[2019-08-23 11:31] LABS: Hematocrit (blood only) 33.6 % (37-47); Hemoglobin 10.7 g/dL (12.0-16.0); Mean Corpuscular Hemoglobin 27.1 pg (25-34); Mean Corpuscular Hgb Conc 31.8 g/dL (32-36); Mean Corpuscular Volume 85.1 fL (80-100); Mean Platelet Volume 9.7 fL (7.4-10.4); Platelet Count 83 K/uL (130-400); RDW Coefficient of Variation 21.3 % (11.5-14.5); Red Blood Count 3.95 M/uL (4.2-5.4); White Blood Count 2.19 K/uL (4.8-10.8)
[2019-08-23] MEDS ORDERED: SODIUM CHLORIDE 0.9% 1000ML 500 ML IV ONE (12:29)
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
--- NOTE | 2019-08-23 14:21 | Gastroenterology Progress Note ---
Date of Service August 23, 2019 Assessment & Plan Admission and Anticipated Discharge Date Admission Date: August 13, 2019 Subjective This is a 54 y/o female with PMhx ETOH abuse, cirrhosis with EV, chronic pain, admitted to this facility since 08/12. Presented initially for GIB and was consulted by GI on admission, subsequently underwent s/p EGD 08/13/18: G1EV, s/p RYGB w anastomotic stenosis. GI asked to evaluate need for colonoscopy as pt reported blood in her stools this AM, though per RN charting stools are brown; no abd pain. HGB stable (around 10) with BUN WNL. BPs have been fluctuating to low-normal during admission, today 99/67 with normal pulse (74). Last EGD 08/13/18: G1EV, s/p RYGB w anastomotic stenosis EGD 10/02/18: Grade I varices, s/p RYGB w stenosis on anastomosis. Last colonoscopy 2014 : Normal exam, recall in 10 yrs Results & Data ([facility]) Vital Signs (Past 12 Hours) Vital Signs Temp Pulse Pulse Resp BP Pulse Ox 08/23/19 12:00 36.8 C 74 16 99/67 L 98 08/23/19 11:18 37.0 C 75 16 99/66 L 98 08/23/19 07:52 36.9 C 71 20 146/84 H 97 08/23/19 07:41 64 08/23/19 04:46 86 08/23/19 04:00 36.8 C 72 20 122/69 98
--- NOTE | 2019-08-23 14:48 | Communication Note ---
Date of Service: August 23, 2019 Pt is a 54 y/o female with PMhx ETOH abuse, cirrhosis with EV, chronic pain, admitted to this facility since 08/13/19. Presented initially for GIB and was c onsulted by our service, had EGD 08/14/19: G1EV, s/p RYGB w anastomotic stenosis. GI had signed off; today we were asked to evaluate pt's need for colonoscopy as she reported blood in her stool this AM, though per RN charting stools are brown; no abd pain. She is still admitted currently for pain management and alcohol use issues. HGB stable (around 10) with BUN WNL. BPs have been fluctuating to low-normal during admission, today 99/67 with normal pulse (74). She is on narcotics for pain. Last EGD 08/13/18: G1EV, s/p RYGB w anastomotic stenosis EGD 10/02/18: Grade I varices, s/p RYGB w stenosis on anastomosis. Last colonoscopy 2014 : Normal exam, recall in 10 yrs Recommend trending H&H, transfuse PRN, PPI daily, monitor GI output, and outpt colonoscopy can be arranged once pt is discharged; our service will call to schedule. Please call with questions.
[2019-08-23 16:13] LABS: Hematocrit (blood only) 32.7 % (37-47); Hemoglobin 10.2 g/dL (12.0-16.0)
[2019-08-23] MEDS: ONDANSETRON INJ 2 MG/ML 2 ML VIAL IV PRN (17:49)
[2019-08-23] MEDS: MIRTAZAPINE TAB 15 MG TAB PO SCH (21:10)
[2019-08-23] MEDS ORDERED: LOPERAMIDE HCL 2 MG CAP PO STA (22:11)
[2019-08-24 00:50] LABS: Hematocrit (blood only) 29.7 % (37-47); Hemoglobin 9.3 g/dL (12.0-16.0)
[2019-08-24] MEDS: HYDROmorphone HCL 2 MG TAB PO PRN ×3 (04:19→16:33)
[2019-08-24] MEDS: GABAPENTIN 300 MG CAP PO SCH ×3 (07:44→21:49)
[2019-08-24] MEDS: CITALOPRAM 20 MG TAB PO SCH (07:48)
[2019-08-24] MEDS: THIAMINE HCL 100 MG TAB PO SCH (07:48)
[2019-08-24] MEDS: LORazepam 0.5 MG TAB PO PRN ×3 (07:48→20:43)
[2019-08-24] MEDS: FOLIC ACID 1 MG TAB PO SCH (07:48)
[2019-08-24] MEDS: PANTOprazole 40 MG TAB PO SCH (07:49)
[2019-08-24] MEDS: CHOLECALCIFEROL (VITAMIN D) 400 UNITS TABLET PO SCH (07:49)
[2019-08-24 09:01] LABS: Hematocrit (blood only) 31.7 % (37-47); Hemoglobin 10.1 g/dL (12.0-16.0)
[2019-08-24] MEDS: CALCIUM 600MG + VIT D 400 IU TAB PO SCH ×2 (09:12→21:49)
[2019-08-24] MEDS: ONDANSETRON INJ 2 MG/ML 2 ML VIAL IV PRN (09:31)
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
[2019-08-24] MEDS ORDERED: PANTOPRAZOLE BOLUS/DRIP 1 EA IV STA (16:41)
[2019-08-24] MEDS ORDERED: SODIUM CHLORIDE 0.9% 250 ML IV PRN (16:42)
[2019-08-24] MEDS ORDERED: PANTOprazole 80 MG in DEXTROSE 5% 100 ML IV ONE (17:00)
[2019-08-24] MEDS: PANTOprazole 40 MG in DEXTROSE 5% 100 ML IV SCH ×2 (17:03→21:26)
[2019-08-24] MEDS ORDERED: OCTREOTIDE ACETATE 100 MCG in SYRINGE 9 ML IV ONE (17:15)
[2019-08-24 17:16] LABS: Hematocrit (blood only) 35.4 % (37-47); Hemoglobin 10.5 g/dL (12.0-16.0)
[2019-08-24] MEDS: LACTATED RINGER'S 1,000 ML IV SCH (17:24)
[2019-08-24 17:36] LABS: BUN Creatinine Ratio 13.1 (10-20); Calcium 8.5 mg/dl (8.5-10.1); Creatinine Clr Calc Pharmacy 85.4 ml/min; Est GFR (African American) 114.7; Potassium 3.4 mmol/L (3.5-5.1)
[2019-08-24] MEDS ORDERED: HYDROmorphone INJ 2 MG/ML SYR/VIAL IV PRN (17:38)
--- NOTE | 2019-08-24 20:33 | Procedure Note ---
Procedure Note Date of Service August 24, 2019 Note INTERNAL JUGULAR CENTRAL LINE PROCEDURE NOTE: Procedure: Internal Jugular Central Line Placement Attending: Dr. Clint Tao Provider: ELANA Bojorquez Indication: Poor venous access and need for continuous drug infusion and blood product infusions Anesthesia: Lidocaine 1% Line placed emergently in the setting of acute GI bleed with need for continuous medication infusions and blood product transfusion A time-out was completed verifying correct patient, procedure, site, positioning, and implants(s) or special equipment if applicable. Patients right neck was cleansed and draped in the typical sterile fashion using Chloraprep. The right internal Jugular Vein and right carotid Artery were identified using ultrasound. The superficial tissue was anesthetized using 3 mL of 1% lidocaine without epinephrine under direct visualization with the ultrasound. After adequate anesthetization was achieved, the right internal Jugular vein was cannulated under direct ultrasound guidance using an introducer needle on a syringe. Good venous blood return was maintained prior to removal of syringe from introducer needle. Using Seldinger Technique, a guide wire was advanced through the introducer needle without resistance. The introducer needle was removed and ultrasound images were obtained of the guide wire within the Internal Jugular Vein and saved to the patients medical record. A small incision was made in penetrating fashion at the guide wire insertion site utilizing an 11 blade scalpel. The dilator was advanced to the vessel without resistance. The dilator was exchanged for the triple lumen catheter which was advanced into the vessel without resistance. The guide wire was removed intact from the catheter without issue. Claves were placed on each catheter tip with confirmation of good blood flow from each lumen. Each port was easily flushed with sterile saline. The catheter was placed at 15 cm and sut[address] in place. BioPatch was applied to the catheter and a sterile Tegaderm dressing was applied over the catheter with careful attention to sterility. Patient tolerated procedure well. No immediate complications were met. Post procedure x-ray was completed, placement was appropriate and no pneumothorax was noted. Images obtained are saved for permanent record Procedural Ultrasound Guidance: Procedure Date: 08/24/2019 Indication: Internal jugular Central line insertion Attending: Dr. Clint Tao Provider: ELANA Bojorquez Artery AND Vein visualized: Yes Compressible Vein: Yes Guidewire or Short Catheter seen in vein prior to dilation: Yes Line confirmed in Vein with ultrasound: Yes Images obtained are saved for permanent record. Supervising Physician Co-Signing Physician Notes I was advised of this patient via telephone as well as messaging from the primary team of need of definitive vascular access. Central venous access was specifically requested for probable gastrointestinal hemorrhage. Patient had been seen by IV team and unable to place large bore IV access. Coding CPT Codes Tubes, Drains, and Vasc Access - Tubes, Drains, and Vasc Access: [id number] Place catheter in vein superior or inferior vena cava ([id number]) Tubes, Drains, and Vasc Access - Tubes, Drains, and Vasc Access: [id number] Ultrasound Guidance For Vascular ([id number]) [facility] [place] (Charges) Tubes, Drains, and Vasc Access Procedure 1: Tubes, Drains, and Vasc Access: [id number] Place catheter in vein superior or inferior vena cava Procedure 2: Tubes, Drains, and Vasc Access: [id number] Ultrasound Guidance For Vascular
--- NOTE | 2019-08-24 20:53 | XRay Report ---
XR chest 1V portable CLINICAL HISTORY: Central venous catheter insertion COMPARISON STUDY: 08/13/2019 FINDINGS: The cardiac and mediastinal contours remain stable. There is a nonspecific lucency beneath the right hemidiaphragm. This appears almost identical to the prior August 12 study. This therefore fav ors a prominent gas-filled bowel loop as opposed to free intraperitoneal air. There is no failure. Th ere is no focal pulmonary consolidation. There are no pleural effusions. There is been interval inser tion of right internal jugular central venous catheter. The tip projects over the right atrium.[No pn eumothorax is visualized. IMPRESSION: 1. Interval placement of a right internal jugular central venous catheter. The tip projects over the right atrium 2. No evidence of pneumothorax ACT 112: Negative or not required by law. Electronically signed by: Yahir Valencia M.D. 08/24/2019 8:52 PM
[2019-08-24] MEDS: HYDROmorphone INJ 1 MG/ML SYRINGE IV PRN (21:13)
[2019-08-24] MEDS: OCTREOTIDE ACETATE 500 MCG in 0.9 % SODIUM CHLORIDE 100 ML IV SCH (21:20)
[2019-08-24] MEDS: MIRTAZAPINE TAB 15 MG TAB PO SCH (21:24)
[2019-08-25 00:56] LABS: Hematocrit (blood only) 32.4 % (37-47); Hemoglobin 9.5 g/dL (12.0-16.0)
[2019-08-25] MEDS: HYDROmorphone INJ 1 MG/ML SYRINGE IV PRN ×6 (01:15→22:14)
[2019-08-25] MEDS: PANTOprazole 40 MG in DEXTROSE 5% 100 ML IV SCH ×4 (02:22→16:15)
[2019-08-25] MEDS: LORazepam 0.5 MG TAB PO PRN ×4 (02:26→23:43)
[2019-08-25] MEDS: LACTATED RINGER'S 1,000 ML IV SCH ×3 (06:39→22:10)
[2019-08-25] MEDS: OCTREOTIDE ACETATE 500 MCG in 0.9 % SODIUM CHLORIDE 100 ML IV SCH ×2 (06:39→14:15)
[2019-08-25 07:11] LABS: BUN Creatinine Ratio 9.3 (10-20); Creatinine Clr Calc Pharmacy 81.7 ml/min; Est GFR (Non-African American) 97.5; Potassium 3.6 mmol/L (3.5-5.1)
[2019-08-25] MEDS: CALCIUM 600MG + VIT D 400 IU TAB PO SCH ×2 (08:31→20:44)
[2019-08-25] MEDS: FOLIC ACID 1 MG TAB PO SCH (08:31)
[2019-08-25] MEDS: THIAMINE HCL 100 MG TAB PO SCH (08:32)
[2019-08-25] MEDS: CHOLECALCIFEROL (VITAMIN D) 400 UNITS TABLET PO SCH (08:32)
[2019-08-25] MEDS: CITALOPRAM 20 MG TAB PO SCH (08:34)
[2019-08-25] MEDS: GABAPENTIN 300 MG CAP PO SCH ×3 (08:34→20:44)
[2019-08-25] MEDS ORDERED: IOVERSOL 100ml IV PRN (09:25)
--- NOTE | 2019-08-25 09:47 | CT Scan Report ---
CT SCAN OF THE ABDOMEN AND PELVIS WITH IV CONTRAST CLINICAL HISTORY: Lower abdominal pain. Melanotic stool. COMPARISON STUDY: Multiple prior abdominal CT scans, most recently dated 07/13/2019. TECHNIQUE: Following the IV administration of 94 cc of Optiray 320, CT scan of the abdomen and pelvi s is performed from the lung bases to the proximal femora. Images are reviewed in the axial, sagittal , and coronal planes. IV contrast was administered without complication. A dose lowering technique wa s utilized adhering to the principles of ALARA. The examination is degraded by motion artifact, and b y streak artifact from the right arm which could not be elevated above the abdomen. There is also str eak artifact from an electronic device overlying the abdomen. CT DOSE: 428.78 mGy.cm FINDINGS: Lung bases: The heart is normal in size and without pericardial effusion. The tip of a central venous catheter terminates at the base of the right atrium. The lung bases are clear noting bibasilar scarr ing/atelectasis. Liver: The contrast-enhanced liver is cirrhotic in morphology and heterogeneous in attenuation. There is hypertrophy of the left lobe and nodularity of the hepatic surface contour. There is mild central intrahepatic biliary ductal dilatation. The hepatic veins and portal veins are patent. Gallbladder: Surgically absent noting clips in the gallbladder fossa. Spleen: The spleen is markedly enlarged measuring 16 cm in length. Pancreas: Atrophic and grossly unremarkable. Adrenal glands: Unremarkable. Kidneys: The contrast enhanced kidneys demonstrate cortical atrophy and are without hydronephrosis. T he kidneys enhance symmetrically. There is a 4 mm nonobstructing calculus in the left lower pole. Abdominal vasculature: The abdominal aorta is normal in course and caliber. Stomach and bowel: There is a small hiatal hernia. Postoperative change in the stomach and small cristian l is consistent with a Jeffy-en-Y gastric bypass procedure. This is similar to previous. No bowel obst ruction is identified. Mild wall thickening is suggested involving the right colon. The appendix is not identified and reported surgically absent. Peritoneum: There is trace abdominopelvic ascites. No intraperitoneal free air is seen. Lymphadenopathy: There are numerous prominent mesenteric lymph nodes. No pathologically enlarged lymp h nodes are identified in the abdomen or pelvis.. Pelvic viscera: The bladder is normal as visualized. The uterus is surgically absent. No adnexal lesi on is seen. Skeletal structures: The skeletal structures are osteopenic. No lytic or blastic lesions are seen. Po sttraumatic deformity and postoperative change is noted in the left femur. 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 There is chronic posttraumatic deformity of t he sacrum as well as healed left pubic ring fractures. There are chronic compression deformities of T 11, T12, L1, L2, L3, L4, and L5. There are healed bilateral rib fractures. A stimulator device is pre sent within the right abdominal wall. Leads do not extend into the central canal. IMPRESSION: 1. Streak and motion compromised examination. 2. The liver is cirrhotic in morphology and heterogeneous in attenuation. 3. Splenomegaly and trace ascites indicate portal hypertension. 4. Postoperative change is consistent with previous gastric bypass surgery. No bowel obstruction is s een. 5. There is nonspecific wall thickening noted in the cecum which likely represents portal colopathy. Correlate clinically for evidence of a nonspecific colitis. 6. Left-sided nephrolithiasis. 7. Additional findings as above. ACT 112: Negative or not required by law. Electronically signed by: Herbie Reese M.D. 08/25/2019 9:46 AM
[2019-08-25 11:01] LABS: Hematocrit (blood only) 31.5 % (37-47); Hemoglobin 9.9 g/dL (12.0-16.0)
[2019-08-25] MEDS ORDERED: LACTATED RINGER'S 500 ML IV ONE (16:12)
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
[2019-08-25] MEDS: MIRTAZAPINE TAB 15 MG TAB PO SCH (20:45)
[2019-08-26] MEDS: LOPERAMIDE HCL 2 MG CAP PO PRN ×3 (02:14→22:37)
[2019-08-26] MEDS: HYDROmorphone INJ 1 MG/ML SYRINGE IV PRN ×6 (02:15→22:15)
[2019-08-26] MEDS: CHOLECALCIFEROL (VITAMIN D) 400 UNITS TABLET PO SCH (07:54)
[2019-08-26] MEDS: FOLIC ACID 1 MG TAB PO SCH (07:55)
[2019-08-26] MEDS: THIAMINE HCL 100 MG TAB PO SCH (07:55)
[2019-08-26] MEDS: LACTATED RINGER'S 1,000 ML IV SCH (07:56)
[2019-08-26 08:29] LABS: Hematocrit (blood only) 29.4 % (37-47); Hemoglobin 9.1 g/dL (12.0-16.0); Mean Corpuscular Hemoglobin 26.8 pg (25-34); Mean Corpuscular Volume 86.5 fL (80-100); RDW Standard Deviation 66.6 fL (36.4-46.3); White Blood Count 1.92 K/uL (4.8-10.8)
[2019-08-26 08:38] LABS: Mean Platelet Volume 9.4 fL (7.4-10.4); Platelet Count 88 K/uL (130-400)
[2019-08-26] MEDS: GABAPENTIN 300 MG CAP PO SCH ×3 (08:54→20:56)
[2019-08-26] MEDS: CALCIUM 600MG + VIT D 400 IU TAB PO SCH ×2 (08:54→20:57)
[2019-08-26] MEDS: CITALOPRAM 20 MG TAB PO SCH (08:55)
[2019-08-26 08:57] LABS: Anisocytosis Present; BUN Creatinine Ratio 11.4 (10-20); Basophils # (auto) 0.01 K/uL (0-0.2); Basophils % (auto) 0.5 %; Calcium 8.1 mg/dl (8.5-10.1); Creatinine Clr Calc Pharmacy 96.9 ml/min; Eosinophils # (auto) 0.04 K/uL (0-0.5); Eosinophils % (auto) 2.1 %; Est GFR (African American) 119.6; Est GFR (Non-African American) 103.2; Immature Granulocytes # (auto) 0.01 K/uL (0.00-0.02); Immature Granulocytes % (auto) 0.5 %; Lymphocytes # (auto) 0.52 K/uL (1.2-3.4); Lymphocytes % (auto) 27.1 %; Monocytes # (auto) 0.32 K/uL (0.11-0.59); Monocytes % (auto) 16.7 %; Neutrophils # (auto) 1.02 K/uL (1.4-6.5); Neutrophils % (auto) 53.1 %; Potassium 3.9 mmol/L (3.5-5.1)
[2019-08-26] MEDS: LORazepam 0.5 MG TAB PO PRN ×2 (08:59→15:58)
[2019-08-26] MEDS: ONDANSETRON INJ 2 MG/ML 2 ML VIAL IV PRN (14:34)
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
[2019-08-26] MEDS: SIMETHICONE 80 MG CHEW PO PRN (19:12)
[2019-08-26] MEDS: MIRTAZAPINE TAB 15 MG TAB PO SCH (20:57)
[2019-08-27] MEDS: LORazepam 0.5 MG TAB PO PRN ×4 (00:03→23:38)
[2019-08-27] MEDS: HYDROmorphone INJ 1 MG/ML SYRINGE IV PRN ×6 (02:16→22:42)
[2019-08-27 06:07] LABS: Hematocrit (blood only) 28.8 % (37-47); Hemoglobin 9.1 g/dL (12.0-16.0); Mean Corpuscular Hemoglobin 27.2 pg (25-34); Mean Corpuscular Hgb Conc 31.6 g/dL (32-36); RDW Coefficient of Variation 20.9 % (11.5-14.5); RDW Standard Deviation 65.9 fL (36.4-46.3); Red Blood Count 3.35 M/uL (4.2-5.4); White Blood Count 1.78 K/uL (4.8-10.8)
[2019-08-27 06:09] LABS: Mean Platelet Volume 9.4 fL (7.4-10.4); Platelet Count 87 K/uL (130-400)
[2019-08-27 06:26] LABS: Anisocytosis Present; Basophils # (auto) 0.01 K/uL (0-0.2); Basophils % (auto) 0.6 %; Eosinophils # (auto) 0.03 K/uL (0-0.5); Eosinophils % (auto) 1.7 %; Giant Platelets 2+; Lymphocytes % (auto) 28.1 %; Monocytes # (auto) 0.21 K/uL (0.11-0.59); Monocytes % (auto) 11.8 %; Neutrophils # (auto) 1.03 K/uL (1.4-6.5); Neutrophils % (auto) 57.8 %; Polychromasia 1+; Target Cells 1+
[2019-08-27] MEDS: CITALOPRAM 20 MG TAB PO SCH (09:24)
[2019-08-27] MEDS: GABAPENTIN 300 MG CAP PO SCH ×3 (09:24→20:12)
[2019-08-27] MEDS: THIAMINE HCL 100 MG TAB PO SCH (09:24)
[2019-08-27] MEDS: CALCIUM 600MG + VIT D 400 IU TAB PO SCH ×2 (09:25→21:03)
[2019-08-27] MEDS: CHOLECALCIFEROL (VITAMIN D) 400 UNITS TABLET PO SCH (09:25)
[2019-08-27] MEDS: FOLIC ACID 1 MG TAB PO SCH (09:25)
[2019-08-27] MEDS: LOPERAMIDE HCL 2 MG CAP PO PRN ×2 (09:31→11:27)
[2019-08-27] MEDS: SIMETHICONE 80 MG CHEW PO PRN (14:43)
[2019-08-27] MEDS: ONDANSETRON INJ 2 MG/ML 2 ML VIAL IV PRN (15:10)
[2019-08-27] MEDS: PROMETHAZINE HCL 12.5 MG/10 ML UDP PO PRN (16:48)
--- NOTE | 2019-08-27 17:58 | Hospitalist Progress Note ---
Date of Service August 27, 2019 Assessment & Plan (1) GI bleed: no further episode (2) Alcohol use: Nausea vomiting: Symptoms started this morning, Doubt any bowel obstruction, We will order for n.p.o. ice chips and sips Consider x-ray of KUB if symptoms gets worse Continue antiemetics as needed ALCOHOL ABUSE HEMATEMESIS, REPORTED MELENA History of ongoing chronic alcohol abuse On admission patient reported of hematemesis, Was seen by GI team EGD on 08/14/2019: Grade 1 esophageal varices, gastric bypass with normal size pouch and intact staple line, normal healthy-appearing mucosa at gastric jejunal anastomosis site, Hypotension Resolved, blood pressure stable now Alcohol liver cirrhosis History of esophageal varices, history of portal hypertension, history of gastrointestinal bleed in the past, history of chronic alcoholic gastritis -No signs of decompensation recent EGD grade 1 esophageal varices -Counselled for strict alcohol abstinence have been done on this admission Protein Calorie Malnutrition -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 Due to chronic alcohol abuse needs strict alcohol abstinence Hypomagnesemia -replaced on this admission History of left hip Fracture in the past Chronic pain syndrome 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,/drug-seeking behavior, Has been requesting pain medication constantly, Patient's pain medication will be adjusted by pain management only: - [place] drug monitoring program revealed patient was prescribed fentanyl patch, Dilaudid and oxycodone in the past by primary care physician -Patient reports that she is following with a sole painter from [place] and is now off pain medications apparently Pain management service consulted-appreciate input DVT prophylaxis: SCDs Full Code Status Disposition Will be discharged home when medically stable Admission and Anticipated Discharge Date Admission Date: August 13, 2019 Subjective Complains of feeling nauseous all through today Had episode of vomiting no blood in vomit Gastric discomfort No bowel movement, no blood in stool Vital stable Review of Systems Gastrointestinal: + nausea and + vomiting Physical Exam Constitutional: WD/WN, vitals as above Eyes: PERRL, conjunctivae normal, anicteric sclerae ENMT: external ear and nose normal, oropharynx normal Neck: trachea midline, no thyromegaly Respiratory: normal respiratory effort, lungs clear to auscultation Cardiovascular: RRR, no murmur, no edema Gastrointestinal (Abdomen): normal bowel sounds, soft, nontender, no hepatosplenomegaly Inspection/Auscultation: normal bowel sounds Percussion/Palpation: + abdomen tender (Mostly lower quadrant, no rebound or guarding) and abdomen soft Musculoskeletal: no cyanosis or clubbing, extremities motor strength 5/5 Skin: no rashes, warm and dry Neurologic: PERRL, EOMI, accommodation nl, no face palsy, no dysarthria Psychiatric: A+Ox3, euthymic affect Results & Data Results & Data ([facility]) Vital Signs (Past 12 Hours) Vital Signs Temp Pulse Pulse Resp BP Pulse Ox 08/27/19 15:42 81 08/27/19 14:39 37.0 C 81 20 138/88 96 08/27/19 10:29 36.6 C 79 16 149/84 H 94 08/27/19 07:55 63 08/27/19 07:28 36.9 C 65 20 119/80 95 08/27/19 06:30 125/79 (1) GI bleed GI bleed type/associated pathology: melena Qualified Code(s): K92.1 - Melena
[2019-08-27] MEDS: MIRTAZAPINE TAB 15 MG TAB PO SCH (20:12)
[2019-08-28] MEDS: LOPERAMIDE HCL 2 MG CAP PO PRN (02:21)
[2019-08-28] MEDS: HYDROmorphone INJ 1 MG/ML SYRINGE IV PRN ×6 (03:02→23:53)
[2019-08-28] MEDS: LORazepam 0.5 MG TAB PO PRN ×2 (06:40→21:32)
[2019-08-28] MEDS: CALCIUM 600MG + VIT D 400 IU TAB PO SCH ×2 (07:51→19:56)
[2019-08-28] MEDS: GABAPENTIN 300 MG CAP PO SCH ×3 (07:51→21:32)
[2019-08-28] MEDS: CHOLECALCIFEROL (VITAMIN D) 400 UNITS TABLET PO SCH (07:52)
[2019-08-28] MEDS: CITALOPRAM 20 MG TAB PO SCH (07:52)
[2019-08-28] MEDS: THIAMINE HCL 100 MG TAB PO SCH (07:52)
[2019-08-28] MEDS: FOLIC ACID 1 MG TAB PO SCH (07:53)
[2019-08-28] MEDS: ONDANSETRON INJ 2 MG/ML 2 ML VIAL IV PRN ×3 (08:32→22:50)
[2019-08-28] MEDS: SIMETHICONE 80 MG CHEW PO PRN ×2 (12:20→23:53)
[2019-08-28] MEDS: PROMETHAZINE HCL 12.5 MG/10 ML UDP PO PRN (14:23)
--- NOTE | 2019-08-28 18:22 | Hospitalist Progress Note ---
Date of Service August 28, 2019 Assessment & Plan (1) GI bleed: no further episode (2) Alcohol use: Nausea vomiting: Symptoms has resolved Diet advanced to regular soft tolerating well ALCOHOL ABUSE HEMATEMESIS, REPORTED MELENA History of ongoing chronic alcohol abuse On admission patient reported of hematemesis, Was seen by GI team EGD on 08/14/2019: Grade 1 esophageal varices, gastric bypass with normal size pouch and intact staple line, normal healthy-appearing mucosa at gastric jejunal anastomosis site, Hypotension Resolved, blood pressure stable now Alcohol liver cirrhosis History of esophageal varices, history of portal hypertension, history of gastrointestinal bleed in the past, history of chronic alcoholic gastritis -No signs of decompensation recent EGD grade 1 esophageal varices -Counselled for strict alcohol abstinence have been done on this admission Protein Calorie Malnutrition -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 Due to chronic alcohol abuse needs strict alcohol abstinence Hypomagnesemia -replaced on this admission History of left hip Fracture in the past Chronic pain syndrome 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,/drug-seeking behavior, Has been requesting pain medication constantly, Patient's pain medication will be adjusted by pain management only: - [place] drug monitoring program revealed patient was prescribed fentanyl patch, Dilaudid and oxycodone in the past by primary care physician -Patient reports that she is following with a ski 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 painter from [place] and is now off pain medications apparently Pain management service consulted-appreciate input DVT prophylaxis: SCDs Full Code Status Disposition Will be discharged home when medically stable Admission and Anticipated Discharge Date Admission Date: August 13, 2019 Subjective no Complaint of nausea vomiting today requested to advance diet Ordered for diet tolerating well Complains of generalized body ache pain: Chronic No fever or chills No blood per rectum No hematemesis Physical Exam Constitutional: WD/WN, vitals as above Eyes: PERRL, conjunctivae normal, anicteric sclerae ENMT: external ear and nose normal, oropharynx normal Neck: trachea midline, no thyromegaly Respiratory: normal respiratory effort, lungs clear to auscultation Cardiovascular: RRR, no murmur, no edema Gastrointestinal (Abdomen): normal bowel sounds, soft, nontender, no hepatosplenomegaly Inspection/Auscultation: normal bowel sounds Percussion/Palpation: + abdomen tender (Mostly lower quadrant, no rebound or guarding) and abdomen soft Musculoskeletal: no cyanosis or clubbing, extremities motor strength 5/5 Skin: no rashes, warm and dry Neurologic: PERRL, EOMI, accommodation nl, no face palsy, no dysarthria Psychiatric: A+Ox3, euthymic affect Results & Data Results & Data ([facility]) Vital Signs (Past 12 Hours) Vital Signs Temp Pulse Pulse Resp BP Pulse Ox 08/28/19 15:43 110/72 08/28/19 15:03 37.8 C H 80 20 100/67 93 08/28/19 14:20 75 08/28/19 11:38 86 101/61 08/28/19 11:11 37.2 C 73 18 94/61 L 95 08/28/19 07:35 66 08/28/19 07:29 37.1 C 67 18 118/78 92 (1) GI bleed GI bleed type/associated pathology: melena Qualified Code(s): K92.1 - Melena
[2019-08-28] MEDS: MIRTAZAPINE TAB 15 MG TAB PO SCH (21:32)
[2019-08-29] MEDS: HYDROmorphone INJ 1 MG/ML SYRINGE IV PRN ×3 (03:59→12:13)
[2019-08-29] MEDS: CALCIUM 600MG + VIT D 400 IU TAB PO SCH ×2 (08:02→20:49)
[2019-08-29] MEDS: THIAMINE HCL 100 MG TAB PO SCH (08:02)
[2019-08-29] MEDS: GABAPENTIN 300 MG CAP PO SCH ×3 (08:02→20:49)
[2019-08-29] MEDS: FOLIC ACID 1 MG TAB PO SCH (08:03)
[2019-08-29] MEDS: CITALOPRAM 20 MG TAB PO SCH (08:03)
[2019-08-29] MEDS: LOPERAMIDE HCL 2 MG CAP PO PRN ×2 (08:03→18:21)
[2019-08-29] MEDS: CHOLECALCIFEROL (VITAMIN D) 400 UNITS TABLET PO SCH (08:03)
[2019-08-29] MEDS: ONDANSETRON INJ 2 MG/ML 2 ML VIAL IV PRN ×2 (08:06→23:48)
[2019-08-29] MEDS: SIMETHICONE 80 MG CHEW PO PRN (13:10)
[2019-08-29] MEDS: OXYCODONE HCL IR 5 MG TAB (IMMEDIATE RELEASE) PO PRN ×2 (16:46→20:48)
[2019-08-29] MEDS: LORazepam 0.5 MG TAB PO PRN ×2 (17:34→23:48)
--- NOTE | 2019-08-29 17:55 | Hospitalist Progress Note ---
Date of Service August 29, 2019 Assessment & Plan (1) GI bleed: Reported of Hematemesis on admission CT showed nonspecific wall thickening noted in the cecum which likely represents portal colopathy. Correlate clinically for evidence of a nonspecific colitis. KUB showed no evidence for a bowel obstruction. EGD on 08/14/2019: Grade 1 esophageal varices, gastric bypass with normal size pouch and intact staple line, normal healthy-appearing mucosa at gastric jejunal anastomosis site. 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 Electrolytes Imbalance Due to alcohol abuse and poor oral intake Mg on admission low Electrolytes stable History of left hip Fracture in the past Chronic pain syndrome 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,/drug-seeking behavior, [place] drug monitoring program revealed patient was prescribed fentanyl patch, Dilaudid and oxycodone in the past by primary care physician Patient reports that she is following with a hand touch up painter from [place] and is now off pain medications apparently Pain management on board recommended to resume gabapentin 300 mg TID Patient is not a candidate for any interventional treatment options as per pain management team Encourage to use the LSO bracing which she reportedly has access to in the outpatient setting Poor candidate for outpatient opiate due to her prior history of opiate misuse/abuse Follow up with Dr. San/Reece regarding potential resumption of intrathecal opiate therapy Will change IV dilaudid to PO oxycodone, then d/c on discharge Pt awared that she will not get any narcotic script on discharge DVT prophylaxis: SCDs Full Code Status Disposition Plan to discharge home tomorrow if stable Admission and Anticipated Discharge Date Admission Date: August 13, 2019 Subjective Pt was seen and examined Lying in bed with no distress eating Pt said that she had a few episode of diarrhea today Pt said that pain control with the IV pain med When i told her that i would change it to PO, she was begging to keep the IV She said that she would not be able to fall asleep to night if changes to PO Pt has been requested the IV dilaudid round the clock as per nurse Pt was informed that i would not give her any script for narcotic on discharge She said that she would get pain med from her PCP Denies any chest pain, palpitation, dizziness and SOB Physical Exam Physical Exam: General- No acute distress Head- atraumatic Eyes- PERRL, EOMI, ENT- oropharynx clear Neck- supple, no JVD Lungs- clear to auscultation Heart- regular rhythm; no murmur Abdomen- normal bowel sounds, soft, nontender Extremities- no calf tenderness Neuro- alert, oriented x 3; PERRL, EOMI; no facial palsy; no dysarthria Skin- warm & dry Results & Data Results & Data ([facility] [place]) Vital Signs (Past 12 Hours) Vital Signs Temp Pulse Pulse Resp BP BP Pulse Ox 08/29/19 16:01 37.0 C 94 H 18 104/68 94 08/29/19 15:29 66 08/29/19 11:15 37.1 C 71 18 139/77 95 08/29/19 07:16 37.0 C 70 20 119/79 93 (1) GI bleed GI bleed type/associated pathology: melena Qualified Code(s): K92.1 - Melena
[2019-08-29] MEDS: MIRTAZAPINE TAB 15 MG TAB PO SCH (20:50)
[2019-08-29] MEDS ORDERED: GABAPENTIN 300 MG CAP PO STA (22:26)
[2019-08-30] MEDS: PROMETHAZINE HCL 12.5 MG/10 ML UDP PO PRN (00:52)
[2019-08-30] MEDS: OXYCODONE HCL IR 5 MG TAB (IMMEDIATE RELEASE) PO PRN ×5 (00:53→18:26)
[2019-08-30] MEDS: LOPERAMIDE HCL 2 MG CAP PO PRN ×2 (05:17→14:14)
[2019-08-30] MEDS: FOLIC ACID 1 MG TAB PO SCH (08:48)
[2019-08-30] MEDS: THIAMINE HCL 100 MG TAB PO SCH (08:48)
[2019-08-30] MEDS: CALCIUM 600MG + VIT D 400 IU TAB PO SCH ×2 (08:48→20:31)
[2019-08-30] MEDS: CITALOPRAM 20 MG TAB PO SCH (08:48)
[2019-08-30] MEDS: GABAPENTIN 300 MG CAP PO SCH ×3 (08:49→20:31)
[2019-08-30] MEDS: LORazepam 0.5 MG TAB PO PRN ×2 (08:49→16:50)
[2019-08-30] MEDS: CHOLECALCIFEROL (VITAMIN D) 400 UNITS TABLET PO SCH (08:49)
[2019-08-30] MEDS: LIDOCAINE 5% 1 PATCH TD SCH (10:12)
[2019-08-30] MEDS: ONDANSETRON INJ 2 MG/ML 2 ML VIAL IV PRN (18:27)
--- NOTE | 2019-08-30 19:20 | Hospitalist Progress Note ---
Date of Service August 30, 2019 Assessment & Plan (1) GI bleed: Reported of Hematemesis on admission CT showed nonspecific wall thickening noted in the cecum which likely represents portal colopathy. Correlate clinically for evidence of a nonspecific colitis. KUB showed no evidence for a bowel obstruction. EGD on 08/14/2019: Grade 1 esophageal varices, gastric bypass with normal size pouch and intact staple line, normal healthy-appearing mucosa at gastric jejunal anastomosis site. 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 Electrolytes Imbalance Due to alcohol abuse and poor oral intake Mg on admission low Electrolytes stable History of left hip Fracture in the past Chronic pain syndrome 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,/drug-seeking behavior, [place] drug monitoring program revealed patient was prescribed fentanyl patch, Dilaudid and oxycodone in the past by primary care physician Patient reports that 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 San/Reece regarding potential resumption of intrathecal opiate therapy Will change IV dilaudid to PO oxycodone, then d/c on discharge Pt awared that she will not get any narcotic script on discharge Restless Leg Syndrome Will try Requip DVT prophylaxis: SCDs Full Code Status Disposition Plan to discharge home tomorrow if stable Admission and Anticipated Discharge Date Admission Date: August 13, 2019 Subjective Pt was seen and examined Lying in bed with no distress eating snack Pt said that pain is ok today She said that she had 4 episodes of diarrhea today I asked pt to let staff know when she does to have a BM that they can record them She said that she cannot sleep at night because of restless legs syndrome Denies any chest pain, palpitation, dizziness and SOB Physical Exam Physical Exam: General- No acute distress Head- atraumatic Eyes- PERRL, EOMI, ENT- oropharynx clear Neck- supple, no JVD Lungs- clear to auscultation Heart- regular rhythm; no murmur Abdomen- normal bowel sounds, soft, nontender Extremities- no calf tenderness Neuro- alert, oriented x 3; PERRL, EOMI; no facial palsy; no dysarthria Skin- warm & dry Results & Data Results & Data ([facility]) Vital Signs (Past 12 Hours) Vital Signs Temp Pulse Pulse Resp BP BP Pulse Ox 08/30/19 19:04 37 C 77 18 98/66 L 97 08/30/19 17:33 65 08/30/19 15:47 36.7 C 90 20 106/68 96 08/30/19 11:50 37.0 C 69 18 90/61 L 93 08/30/19 10:05 88 08/30/19 07:34 36.9 C 67 18 106/68 96 (1) GI bleed GI bleed type/associated pathology: melena Qualified Code(s): K92.1 - Melena
[2019-08-30] MEDS: ROPINIROLE HCL 0.25 MG TABLET PO SCH (20:30)
[2019-08-30] MEDS: MIRTAZAPINE TAB 15 MG TAB PO SCH (20:32)
[2019-08-30] MEDS: SIMETHICONE 80 MG CHEW PO PRN (22:28)
[2019-08-31] MEDS: OXYCODONE HCL IR 5 MG TAB (IMMEDIATE RELEASE) PO PRN ×5 (00:27→23:22)
[2019-08-31] MEDS: LORazepam 0.5 MG TAB PO PRN ×4 (00:27→21:06)
[2019-08-31] MEDS: CHOLECALCIFEROL (VITAMIN D) 400 UNITS TABLET PO SCH (08:05)
[2019-08-31] MEDS: GABAPENTIN 300 MG CAP PO SCH ×3 (08:05→21:07)
[2019-08-31] MEDS: FOLIC ACID 1 MG TAB PO SCH (08:05)
[2019-08-31] MEDS: LIDOCAINE 5% 1 PATCH TD SCH (08:05)
[2019-08-31] MEDS: CALCIUM 600MG + VIT D 400 IU TAB PO SCH ×2 (08:05→21:06)
[2019-08-31] MEDS: THIAMINE HCL 100 MG TAB PO SCH (08:05)
[2019-08-31] MEDS: CITALOPRAM 20 MG TAB PO SCH (08:05)
[2019-08-31] MEDS: ONDANSETRON INJ 2 MG/ML 2 ML VIAL IV PRN ×2 (08:06→23:22)
[2019-08-31] MEDS: LOPERAMIDE HCL 2 MG CAP PO PRN (12:03)
--- NOTE | 2019-08-31 13:58 | XRay Report ---
KUB HISTORY: Generalized abdominal pain. Recurrent diarrhea. COMPARISON: Abdomen and pelvis CT 08/25/2019. FINDINGS: The bowel gas pattern is unremarkable. There are no dilated loops of small bowel to suggest an obstruction. The patient's known left-sided renal calculi are obscured by overlying bowel gas. P ostoperative changes consistent with prior gastric bypass and cholecystectomy. Central venous cathete r terminates at the right atrium/IVC. Right lower quadrant electronic device is again noted. The tubi ng is curled in the lumbar region. This does not appear to enter the central canal. Internal fixation of the proximal left femur is again noted. 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 No pneumoperitoneum or pneumatosis. IMPRESSION: 1. Unremarkable bowel gas pattern. No evidence for bowel obstruction. 2. Central venous catheter terminates in the right atrium/IVC. This remains unchanged. ACT 112: Negative or not required by law. Electronically signed by: Brennen King M.D. 08/31/2019 1:56 PM
[2019-08-31] MEDS: PROMETHAZINE HCL 12.5 MG/10 ML UDP PO PRN (14:47)
[2019-08-31] MEDS ORDERED: ACETAMINOPHEN 1,000 MG/100 ML VIAL IV STA (15:06)
--- NOTE | 2019-08-31 18:55 | Hospitalist Progress Note ---
Date of Service August 31, 2019 Assessment & Plan (1) GI bleed: Reported of Hematemesis on admission CT showed nonspecific wall thickening noted in the cecum which likely represents portal colopathy. Correlate clinically for evidence of a nonspecific colitis. KUB showed no evidence for a bowel obstruction. EGD on 08/14/2019: Grade 1 esophageal varices, gastric bypass with normal size pouch and intact staple line, normal healthy-appearing mucosa at gastric jejunal anastomosis site. 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 Electrolytes Imbalance Due to alcohol abuse and poor oral intake Mg on admission low Electrolytes stable History of left hip Fracture in the past Chronic pain syndrome 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,/drug-seeking behavior, [place] drug monitoring program revealed patient was prescribed fentanyl patch, Dilaudid and oxycodone in the past by primary care physician Patient reports that she is following with a buildings painter from [place] and is now off pain medications apparently Pain management on board recommended to resume gabapentin 300 mg TID Patient is not a candidate for any interventional treatment options as per pain management team Encourage to use the LSO bracing which she reportedly has access to in the outpatient setting Poor candidate for outpatient opiate due to her prior history of opiate misuse/abuse Follow up with Dr. San/Reece regarding potential resumption of intrathecal opiate therapy Will change IV dilaudid to PO oxycodone, then d/c on discharge Pt awared that she will not get any narcotic script on discharge Will change oxycodone to q6hr IV tylenol added, will keep it under 2g total daily dose Diarrhea Continue to have recurrent watery diarrhea Denies any recent used of abx Stools for Cdiff was negative on 08/23 Will repeat stool for Cdiff Continue Loperamide PRN Restless Leg Syndrome Continue Requip prn DVT prophylaxis: SCDs Full Code Status Disposition Plan to discharge home tomorrow if stable Admission and Anticipated Discharge Date Admission Date: August 13, 2019 Subjective Pt was seen and examined Lying in bed with no distress Pt said that she is having a lot of back pain She wants to keep the pain medication to be q4hr She said that she had 6 episodes of watery diarrhea Denies any chest pain, palpitation, dizziness, vomiting and fever Physical Exam Physical Exam: General- No acute distress Head- atraumatic Eyes- PERRL, EOMI, ENT- oropharynx clear Neck- supple, no JVD Lungs- clear to auscultation Heart- regular rhythm; no murmur Abdomen- normal bowel sounds, soft, +tenderness Extremities- no calf tenderness Neuro- alert, oriented x 3; PERRL, EOMI; no facial palsy; no dysarthria Skin- warm & dry Results & Data Results & Data ([facility]) Vital Signs (Past 12 Hours) Vital Signs Temp Pulse Pulse Resp BP Pulse Ox 08/31/19 16:06 36.8 C 85 20 113/70 97 08/31/19 15:24 84 08/31/19 11:00 36.9 C 76 16 133/86 96 08/31/19 07:32 72 08/31/19 07:00 36.5 C 81 16 95/68 L 96 (1) GI bleed GI bleed type/associated pathology: melena Qualified Code(s): K92.1 - Melena
[2019-08-31] MEDS: MIRTAZAPINE TAB 15 MG TAB PO SCH (21:07)
[2019-08-31] MEDS: ROPINIROLE HCL 0.25 MG TABLET PO SCH (21:07)
[2019-09-01] MEDS: OXYCODONE HCL IR 5 MG TAB (IMMEDIATE RELEASE) PO PRN ×4 (05:13→23:27)
[2019-09-01] MEDS: ONDANSETRON INJ 2 MG/ML 2 ML VIAL IV PRN ×2 (07:32→16:23)
[2019-09-01] MEDS: LORazepam 0.5 MG TAB PO PRN ×3 (07:32→21:53)
[2019-09-01] MEDS: GABAPENTIN 300 MG CAP PO SCH ×3 (08:52→20:35)
[2019-09-01] MEDS: CALCIUM 600MG + VIT D 400 IU TAB PO SCH ×2 (08:53→20:34)
[2019-09-01] MEDS: CHOLECALCIFEROL (VITAMIN D) 400 UNITS TABLET PO SCH (08:53)
[2019-09-01] MEDS: THIAMINE HCL 100 MG TAB PO SCH (08:53)
[2019-09-01] MEDS: CITALOPRAM 20 MG TAB PO SCH (08:53)
[2019-09-01] MEDS: FOLIC ACID 1 MG TAB PO SCH (08:53)
[2019-09-01] MEDS: LIDOCAINE 5% 1 PATCH TD SCH (08:53)
[2019-09-01 09:05] LABS: Hematocrit (blood only) 32.4 % (37-47); Mean Corpuscular Hemoglobin 26.2 pg (25-34); Mean Corpuscular Hgb Conc 30.9 g/dL (32-36); Mean Corpuscular Volume 84.8 fL (80-100); Mean Platelet Volume 9.7 fL (7.4-10.4); Platelet Count 123 K/uL (130-400); RDW Coefficient of Variation 20.3 % (11.5-14.5); RDW Standard Deviation 63.8 fL (36.4-46.3); Red Blood Count 3.82 M/uL (4.2-5.4); White Blood Count 1.95 K/uL (4.8-10.8)
[2019-09-01 09:38] LABS: Calcium 8.5 mg/dl (8.5-10.1); Creatinine Clr Calc Pharmacy 114.4 ml/min; Est GFR (African American) 126.3; Potassium 3.8 mmol/L (3.5-5.1)
[2019-09-01] MEDS: LOPERAMIDE HCL 2 MG CAP PO PRN (16:21)
--- NOTE | 2019-09-01 19:22 | Hospitalist Progress Note ---
Date of Service September 01, 2019 Assessment & Plan (1) GI bleed: Reported of Hematemesis on admission CT showed nonspecific wall thickening noted in the cecum which likely represents portal colopathy. Correlate clinically for evidence of a nonspecific colitis. KUB showed no evidence for a bowel obstruction. EGD on 08/14/2019: Grade 1 esophageal varices, gastric bypass with normal size pouch and intact staple line, normal healthy-appearing mucosa at gastric jejunal anastomosis site. 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 Electrolytes Imbalance Due to alcohol abuse and poor oral intake Mg on admission low Electrolytes stable History of left hip Fracture in the past Chronic pain syndrome 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,/drug-seeking behavior, [place] drug monitoring program revealed patient was prescribed fentanyl patch, Dilaudid and oxycodone in the past by primary care physician 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 San/Reece regarding potential resumption of intrathecal opiate therapy Will change IV dilaudid to PO oxycodone, then d/c on discharge Pt awared that she will not get any narcotic script on discharge Continue oxycodone to q6hr prn Pt requested to add tramadol PRN. She said that she had tramadol in the past with no side effect Will add tramadol prn and monitor pt for any side effect since there is allergy reaction noted in her chart for tramadol Diarrhea Continue to have recurrent watery diarrhea Denies any recent used of abx Stools for Cdiff was negative on 08/23 Repeat stool for Cdiff negative Continue Loperamide PRN Restless Leg Syndrome Continue Requip prn DVT prophylaxis: SCDs Full Code Status Disposition Plan to discharge home tomorrow if stable Admission and Anticipated Discharge Date Admission Date: August 13, 2019 Subjective Pt was seen and examined Lying in bed with no distress snaking cracker/cheese and milk Pt said that she had 4 episodes of diarrhea today Nurse said that they put the bed alarm and it only rang twice She asked to add tramadol to help with her chronic pain She said that she received tramadol in the past and tolerated with no side effects Denies any chest pain, palpitation, dizziness and SOB Physical Exam Physical Exam: General- No acute distress Head- atraumatic Eyes- PERRL, EOMI, ENT- oropharynx clear Neck- supple, no JVD Lungs- clear to auscultation Heart- regular rhythm; no murmur Abdomen- normal bowel sounds, soft, +tenderness Extremities- no calf tenderness Neuro- alert, oriented x 3; PERRL, EOMI; no facial palsy; no dysarthria Skin- warm & dry Results & Data Results & Data ([facility]) Vital Signs (Past 12 Hours) Vital Signs Temp Pulse Pulse Resp BP Pulse Ox 09/01/19 16:00 62 09/01/19 15:32 36.9 C 68 18 149/76 H 98 09/01/19 11:36 36.4 C L 85 18 109/70 97 09/01/19 08:09 36.9 C 73 18 111/73 98 09/01/19 08:02 72 (1) GI bleed GI bleed type/associated pathology: melena Qualified Code(s): K92.1 - Melena
[2019-09-01] MEDS: TRAMADOL HCL 50 MG TABLET PO PRN (20:33)
[2019-09-01] MEDS: ROPINIROLE HCL 0.25 MG TABLET PO SCH (20:34)
[2019-09-01] MEDS: MIRTAZAPINE TAB 15 MG TAB PO SCH (20:35)
[2019-09-01] MEDS: SIMETHICONE 80 MG CHEW PO PRN (21:53)
[2019-09-02] MEDS: LORazepam 0.5 MG TAB PO PRN ×3 (05:49→18:15)
[2019-09-02] MEDS: OXYCODONE HCL IR 5 MG TAB (IMMEDIATE RELEASE) PO PRN ×3 (05:49→18:15)
[2019-09-02] MEDS: LIDOCAINE 5% 1 PATCH TD SCH (08:20)
[2019-09-02] MEDS: GABAPENTIN 300 MG CAP PO SCH ×3 (08:21→20:07)
[2019-09-02] MEDS: THIAMINE HCL 100 MG TAB PO SCH (08:21)
[2019-09-02] MEDS: CHOLECALCIFEROL (VITAMIN D) 400 UNITS TABLET PO SCH (08:21)
[2019-09-02] MEDS: FOLIC ACID 1 MG TAB PO SCH (08:21)
[2019-09-02] MEDS: CITALOPRAM 20 MG TAB PO SCH (08:21)
[2019-09-02] MEDS: CALCIUM 600MG + VIT D 400 IU TAB PO SCH ×2 (08:21→20:07)
[2019-09-02] MEDS: TRAMADOL HCL 50 MG TABLET PO PRN ×2 (09:24→19:56)
[2019-09-02] MEDS: LOPERAMIDE HCL 2 MG CAP PO PRN (09:24)
[2019-09-02] MEDS: ONDANSETRON INJ 2 MG/ML 2 ML VIAL IV PRN ×2 (09:49→19:56)
--- NOTE | 2019-09-02 15:49 | Hospitalist Progress Note ---
Date of Service September 02, 2019 Assessment & Plan (1) GI bleed: Reported of Hematemesis on admission CT showed nonspecific wall thickening noted in the cecum which likely represents portal colopathy. Correlate clinically for evidence of a nonspecific colitis. KUB showed no evidence for a bowel obstruction. EGD on 08/14/2019: Grade 1 esophageal varices, gastric bypass with normal size pouch and intact staple line, normal healthy-appearing mucosa at gastric jejunal anastomosis site. 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 Electrolytes Imbalance Due to alcohol abuse and poor oral intake Mg on admission low Electrolytes stable History of left hip Fracture in the past Chronic pain syndrome 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,/drug-seeking behavior, [place] drug monitoring program revealed patient was prescribed fentanyl patch, Dilaudid and oxycodone in the past by primary care physician Patient reports that she is 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 San/Reece regarding potential resumption of intrathecal opiate therapy Will change IV dilaudid to PO oxycodone, then d/c on discharge Pt awared that she will not get any narcotic script on discharge Continue oxycodone to q6hr prn Pt requested to add tramadol PRN. She said that she had tramadol in the past with no side effect Will add tramadol prn and monitor pt for any side effect since there is allergy reaction noted in her chart for tramadol Chronic diarrhea Continue to have recurrent watery diarrhea Denies any recent used of abx Stools for Cdiff was negative on 08/23 Repeat stool for Cdiff negative Continue Loperamide PRN Stable Restless Leg Syndrome Continue Requip prn DVT prophylaxis: SCDs Full Code Status Disposition Plan to discharge home tomorrow if stable Admission and Anticipated Discharge Date Admission Date: August 13, 2019 Subjective Pt was seen and examined Lying in bed with no distress Pt said that she had about 4 episodes of diarrhea today Pt said that her diarrhea is chronic She said that she has had it for years She said that she had colonoscopy done in the past that was normal She continues to have her chronic pain denies any chest pain, palpitation, dizziness and SOB Physical Exam Physical Exam: General- No acute distress Head- atraumatic Eyes- PERRL, EOMI, ENT- oropharynx clear Neck- supple, no JVD Lungs- clear to auscultation Heart- regular rhythm; no murmur Abdomen- normal bowel sounds, soft, +tenderness Extremities- no calf tenderness Neuro- alert, oriented x 3; PERRL, EOMI; no facial palsy; no dysarthria Skin- warm & dry Results & Data Results & Data ([facility]) Vital Signs (Past 12 Hours) Vital Signs Temp Pulse Pulse Resp BP BP Pulse Ox 09/02/19 15:00 36.5 C 86 16 108/73 94 09/02/19 10:55 36.7 C 67 16 91/50 L 95 09/02/19 08:19 97/64 L 09/02/19 07:33 66 09/02/19 07:00 36.9 C 64 16 81/51 L 96 09/02/19 04:00 36.8 C 66 18 108/64 95 (1) GI bleed GI bleed type/associated pathology: melena Qualified Code(s): K92.1 - Melena
[2019-09-02] MEDS: ROPINIROLE HCL 0.25 MG TABLET PO SCH (20:07)
[2019-09-02] MEDS: MIRTAZAPINE TAB 15 MG TAB PO SCH (20:07)
[2019-09-03] MEDS: OXYCODONE HCL IR 5 MG TAB (IMMEDIATE RELEASE) PO PRN ×3 (00:16→12:12)
[2019-09-03] MEDS: LORazepam 0.5 MG TAB PO PRN ×3 (00:16→12:12)
[2019-09-03] MEDS: LOPERAMIDE HCL 2 MG CAP PO PRN (06:18)
[2019-09-03] MEDS: SIMETHICONE 80 MG CHEW PO PRN (09:17)
[2019-09-03] MEDS: CALCIUM 600MG + VIT D 400 IU TAB PO SCH (09:17)
[2019-09-03] MEDS: GABAPENTIN 300 MG CAP PO SCH (09:17)
[2019-09-03] MEDS: CITALOPRAM 20 MG TAB PO SCH (09:17)
[2019-09-03] MEDS: LIDOCAINE 5% 1 PATCH TD SCH (09:18)
[2019-09-03] MEDS: THIAMINE HCL 100 MG TAB PO SCH (09:18)
[2019-09-03] MEDS: CHOLECALCIFEROL (VITAMIN D) 400 UNITS TABLET PO SCH (09:18)
[2019-09-03] MEDS: FOLIC ACID 1 MG TAB PO SCH (09:18)
[2019-09-03] MEDS: ONDANSETRON INJ 2 MG/ML 2 ML VIAL IV PRN (09:29)
[2019-09-03] MEDS: TRAMADOL HCL 50 MG TABLET PO PRN (09:29)
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
--- NOTE | 2019-09-10 11:51 | Coding Query ---
MALNUTRITION To promote full compliance with coding requirements relating to patient care, physician participation is requested in all cases of cutter operator brick uncertainty. Please assist us with the question(s) below: Please place an X within the parenthesis (x). If other, please document: "Malnutrition" is documented in this record beginning on the H&P. If possible, please check the box that provides a more specific diagnosis: ( ) Mild malnutrition ( ) Moderate malnutrition ( ) Severe malnutrition ( ) Protein malnutrition (kwashiorkor) ( ) Severe protein calorie malnutrition ( ) Protein calorie malnutrition, unspecified ( ) Other (please specify): i was not her dischargeing physician Thank you Katherin Baldwin [facility]
--- NOTE | 2019-09-10 11:54 | Coding Query ---
CODING QUERY To promote full compliance with coding requirements relating to patient care, provider participation is requested in all cases of door fitter uncertainty. Please assist us with the question(s) below: Coding Question(s): There is documentation in the record on ER and the Pain Management Consultation of Alcoholism/Alcoholic and Progress Notes and Discharge Summary document Alcohol Abuse. Due to conflicting documentation, please clarify below, in your clinical opinion. ( x) Alcoholism/Alcoholic - Alcohol Dependence ( ) Alcohol Abuse ( ) Other: Please Specify Physician's Response(s): Thank you Katherin Baldwin Principal Diagnosis: "that condition established after study, to be chiefly responsible for occasioning the admission of the patient to the hospital for care." Co-Existing Principal Diagnosis: "when two or more diagnoses equally meet the criteria for principal diagnosis as determined by the circumstances of admission, diagnostic work up, and/or therapy provided, and the Alphabetic Index, Tabular List, or another coding guideline does not provide sequencing direction, any one of the diagnoses may be sequenced first." "When the physician has documented what appears to be a current diagnosis in the body of the record, but has not included the diagnosis in the final diagnostic statement, the physician should be asked whether the diagnosis should be added." (Source [facility]oding [facility] 2 QTR90. p3-4) FAUZIA
--- NOTE | 2019-09-11 05:55 | Coding Query ---
MALNUTRITION To promote full compliance with coding requirements relating to patient care, physician participation is requested in all cases of medical affairs specialist uncertainty. Please assist us with the question(s) below: Please place an X within the parenthesis (x). If other, please document: "Malnutrition" is documented in this record starting on the H&P and including on the Discharge Summary. If possible, please check the box that provides a more specific diagnosis: ( ) Mild malnutrition ( ) Moderate malnutrition ( ) Severe malnutrition ( ) Protein malnutrition (kwashiorkor) ( ) Severe protein calorie malnutrition (x ) Protein calorie malnutrition, unspecified ( ) Other (please specify): Thank you Katherin CAGE
== END 2019-09-03 13:39 | disposition home health service (06) | DRG 432 ==
LOC: ED 14:21 → SUATTDRO 18:22 → 2W 18:22 → 2N 08-14 02:14

== ENCOUNTER 2019-09-11 17:04 | Inpatient (IN) ==
[2019-09-11] MEDS ORDERED: LORazepam 0.5 MG/1 ML VIAL IV STA (17:20)
[2019-09-11] MEDS ORDERED: FAMOTIDINE 20MG IV PUSH 20 MG/5 ML SYR IV STA (17:20)
[2019-09-11] MEDS ORDERED: MULTI-VITAMIN INFUSION 10 ML, THIAMINE HCL 100 MG, FOLIC ACID 1 MG in SODIUM CHLORIDE 0... IV ONE (17:20)
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
--- NOTE | 2019-09-11 18:35 | CT Scan Report ---
CT head/brain wo con CLINICAL HISTORY: 54 years-old Female with Fall. Acute head and neck trauma status post fall TECHNIQUE: Multiple axial CT images of the head were obtained without contrast. A dose lowering tech nique was utilized adhering to the principles of ALARA. COMPARISON: CT cervical spine of same day, head CT 04/17/2019 FINDINGS: No acute intracranial hemorrhage, midline shift, intracranial mass, hydrocephalus, territorial ischem ia or abnormal extra-axial collection. The calvarium is intact. The paranasal sinuses, mastoid air cells, and middle ear cavities are clear . IMPRESSION: No acute intracranial abnormality or calvarial fracture. ACT 112: Negative or not required by law. The above report was generated using voice recognition software. It may contain grammatical, syntax o r spelling errors. Electronically signed by: Brennon Matos M.D. 09/11/2019 6:31 PM
--- NOTE | 2019-09-11 18:36 | CT Scan Report ---
CT cervical spine wo con CT DOSE: 1335.34 mGy.cm CLINICAL HISTORY: 54 years-old Female with fall. Acute head and neck injury status post fall COMPARISON: CT head of same day, CT cervical spine 04/17/2019 TECHNIQUE: Multiple axial CT images of the cervical spine were obtained without contrast. A dose low ering technique was utilized adhering to the principles of ALARA. FINDINGS: Chronic wedge deformity of T7 with mild superior endplate compression deformity redemonstrated at T2. Multilevel uncovertebral spurring with mild to moderate posterior disc space narrowing and moderate facet arthrosis. No acute fracture or subluxation identified. Mastoid air cells are clear. No prevert ebral soft tissue swelling. Developmental incomplete bony fusion involves the posterior elements of C 1. Evaluation central canal and neuroforamina is better assessed by MRI. No high-grade central canal or foraminal narrowing identified. Lung apices are clear. No pneumothorax. Unremarkable soft tissues. IMPRESSION: No acute fracture or subluxation. ACT 112: Negative or not required by law. The above report was generated using voice recognition software. It may contain grammatical, syntax o r spelling errors. Electronically signed by: Brennon Matos M.D. 09/11/2019 6:35 PM
--- NOTE | 2019-09-11 18:49 | CT Scan Report ---
CT chest wo con, CT abd pelvis wo con CLINICAL HISTORY: 54 years-old Female with fall. Acute chest and abdominal trauma status post fall TECHNIQUE: Multiaxial CT images of the chest, abdomen and pelvis were performed without contrast. A dose lowering technique was utilized adhering to the principles of ALARA. COMPARISON: CT abdomen pelvis 08/25/2019, CTA chest 04/17/2019 FINDINGS: CT CHEST: Diminutive thyroid. No pathologically enlarged lymph nodes. Heart is normal in size. No pericardial e ffusion. No thoracic aortic aneurysm. Unenhanced pulmonary artery is unremarkable. No pneumothorax, pleural effusion, airspace consolidation or overt pulmonary edema. Subcentimeter gloria cified granuloma of the superior segment left lower lobe. The central airways appear patent. Soft tis sues are unremarkable. Degenerative changes are noted within the spine and shoulders. No acute fractu re identified. Multiple healed remote bilateral rib fractures. Numerous remote appearing compression deformities of the thoracic spine appear unchanged from the 04/17/[address] ABDOMEN/PELVIS: There is no pneumatosis or pneumoperitoneum. Limited evaluation of the solid abdominal organs without the use of IV contrast. Within the limitations of the exam the spleen and adrenal glands are unremar kable. Mild to moderate generalized pancreatic atrophy. There is hepatic steatosis with mild marginal nodularity suspicious for cirrhosis. Cholecystectomy. 4 mm nonobstructing calculus of the inferior pole left kidney. Unremarkable right kidney. No obstruct jeanette uropathy. Mild urinary bladder distention. Uterus appears surgically absent. Streak artifact from left hip arthroplasty limits evaluation of the pelvis. Aorta is unremarkable. No adenopathy. Mild distal esophageal wall thickening. Prior gastric bypass. No bowel obstruction or bowel wall thic kening. Streak artifact is noted from electronic device of the anterior right lower abdomen subcutane ous tissues. A single lead is noted projecting from this device into the subcutaneous right lower nicole k. The lead appears intact. Demineralized appearance of the bones. Degenerative changes of the spine, pelvis and hips. Unchanged mild cortical angulation of the left inferior pubic ramus. Intact intratr ochanteric nail with medullary kaylee of the left femur. No evidence of hardware complication. 25% L2 eason perior endplate compression deformity is unchanged. Multiple additional remote thoracic and lumbar sp ine compression deformities without acute fracture identified. Remote anterior cortical deformity of S2. IMPRESSION: 1. No acute intrathoracic, intra-abdominal or intrapelvic abnormality identified. 2. No acute fracture. 3. Nonobstructing left nephrolithiasis. 4. Hepatic steatosis with mild marginal nodularity suspicious for cirrhotic liver disease. 5. Prior gastric bypass. 6. Additional findings as above. ACT 112: Negative or not required by law. Electronically signed by: Brennon Matos M.D. 09/11/2019 6:47 PM
[2019-09-11 19:23] LABS: Basophils # (auto) 0.01 K/uL (0-0.2); Basophils % (auto) 0.1 %; Hemoglobin 12.4 g/dL (12.0-16.0); Immature Granulocytes # (auto) 0.05 K/uL (0.00-0.02); Immature Granulocytes % (auto) 0.3 %; Lymphocytes # (auto) 0.78 K/uL (1.2-3.4); Lymphocytes % (auto) 4.3 %; Mean Corpuscular Hemoglobin 26.3 pg (25-34); Mean Corpuscular Hgb Conc 31.8 g/dL (32-36); Mean Corpuscular Volume 82.6 fL (80-100); Mean Platelet Volume 9.8 fL (7.4-10.4); Monocytes # (auto) 1.12 K/uL (0.11-0.59); Monocytes % (auto) 6.2 %; Neutrophils # (auto) 16.21 K/uL (1.4-6.5); Neutrophils % (auto) 89.1 %; Platelet Count 249 K/uL (130-400); RDW Coefficient of Variation 18.6 % (11.5-14.5); RDW Standard Deviation 56.7 fL (36.4-46.3); Red Blood Count 4.72 M/uL (4.2-5.4); White Blood Count 18.17 K/uL (4.8-10.8)
[2019-09-11] MEDS ORDERED: LORazepam 2 MG/4 ML VIAL ONE (19:31)
[2019-09-11] MEDS ORDERED: FAMOTIDINE 20MG/5ML IV PUSH IV ONE (19:34)
[2019-09-11 19:35] LABS: INR 1.1 (0.9-1.1); Partial Thromboplastin Ratio 0.9; Partial Thromboplastin Time 25.7 Seconds (21.0-31.0); Prothrombin Time 11.9 Seconds (9.0-12.0)
[2019-09-11 19:47] LABS: Albumin Level 3.9 gm/dl (3.4-5.0); BUN Creatinine Ratio 45.6 (10-20); Calcium 9.5 mg/dl (8.5-10.1); Creatinine Clr Calc Pharmacy 76.3 ml/min; Est GFR (Non-African American) 89.7; Magnesium 2.4 mg/dl (1.8-2.4); Potassium 3.5 mmol/L (3.5-5.1)
[2019-09-11 19:53] LABS: Albumin Globulin Ratio 0.9 (0.9-2); Globulin 4.5 gm/dl (2.5-4.0); Total Protein 8.4 gm/dl (6.4-8.2); Troponin I 0.032 ng/ml (0-0.045)
[2019-09-11] MEDS ORDERED: SODIUM CHLORIDE 0.9% 1000ML 1,000 ML IV SCH (20:15)
[2019-09-11 20:55] LABS: Appearance Urine Clear (Clear); Bacteria Urine Automated 4+ (Negative); Blood Urine 1+ (Negative); Cast Urine Automated 0 /lpf (0-5); Color Urine Dark Yellow; Glucose Urine UA Negative (Negative); Ketones Urine 4+ (Negative); Leukocyte Esterase Urine Trace (Negative); Nitrite Urine Positive (Negative); Protein Urine 2+ (Negative); Specific Gravity Urine 1.028 (1.000-1.030); Urobilinogen Urine Negative (Negative); pH Urine 6.5 (4.5-7.5)
[2019-09-11 20:58] LABS: Bilirubin Urine 2+ (Negative); Ictotest Urine Positive (Negative)
[2019-09-11 21:19] LABS: Amphetamines+Metham, Urine Neg (Neg); Barbiturates, Urine Neg (Neg); Benzodiazepine, Urine Neg (Neg); Cocaine, Urine Neg (Neg); MDMA (Ecstacy), Urine Neg (Neg); Methadone, Urine Neg (Neg); Opiate, Urine Neg (Neg); Phencyclidine, Urine Neg (Neg)
[2019-09-11] MEDS ORDERED: LORazepam 1.5 MG/3 ML VIAL IV STA (21:19)
[2019-09-11] MEDS ORDERED: GABAPENTIN 1200MG ALCOHOL WITHDRAWAL LOAD PO STA (22:25)
[2019-09-11] MEDS ORDERED: ATIVAN IV ALCOHOL WITHDRAWL IV PRN (22:25)
[2019-09-11] MEDS ORDERED: PIPERACILL/TAZOBAC CONSULT ACTIVE PRN (22:25)
[2019-09-11] MEDS ORDERED: LORazepam 3 MG/6 ML VIAL IV PRN (22:25)
[2019-09-11] MEDS ORDERED: LORazepam 2 MG/4 ML VIAL IV PRN (22:25)
[2019-09-11] MEDS ORDERED: GABAPENTIN 600 MG TAB PO ONE (22:30)
[2019-09-11] MEDS ORDERED: PIPERACILLIN/TAZOBACTAM 3.375 GM in DEXTROSE 5% 100 ML IV ONE (23:00)
[2019-09-11] MEDS: METOPROLOL TARTRATE 1 MG/ML VIAL IV PRN (23:22)
[2019-09-11] MEDS: D5W AND NSS 1,000 ML IV SCH (23:29)
[2019-09-11] MEDS: PANTOprazole 40 MG in SYRINGE 0 ML IV SCH (23:29)
[2019-09-11] MEDS: THIAMINE HCL 100 MG in SYRINGE 9 ML IV SCH (23:41)
[2019-09-11] MEDS: FOLIC ACID 1 MG in SYRINGE 9.8 ML IV SCH (23:41)
[2019-09-11] MEDS: LORazepam 1 MG/2 ML VIAL IV PRN (23:42)
--- NOTE | 2019-09-12 00:59 | History and Physical Report ---
DATE OF ADMISSION: 09/11/2019 CHIEF COMPLAINT: Status post fall and alcoholism. HISTORY OF PRESENT ILLNESS: A 54-year-old female with past medical history significant for alcoholic cirrhosis, ongoing alcohol abuse, chronic pancytopenia, portal hypertension, esophageal varices, hypothyroidism, myalgia and myositis, osteopenia, history of convulsions, depression, insomnia, anxiety, history of narcotic abuse, history of GI bleed. The patient was recently in the hospital for about 3 weeks for hematemesis, alcohol abuse, discharged to home with home health services. The patient says she fell yesterday and she could not get up and today she called the neighbor, the neighbor called the candy maker helper and the candy maker helper force opened the house and she was found all over covered with feces. The patient also vomited and she was brought in here and she was cleaned up. The patient says she is still drinking. She drank about 7 beers yesterday. She was feeling shaky, tachycardic. Her white count is 18,000. Total creatinine kinase 413. UA is positive. Her imaging studies are unremarkable. The patient says she has a son, but is not in good terms with her son. She has a friend who helps her to keep the appointments and go to grocery stores. She is not eating much, but she has home delivered alcohol. Denies any fever, chills. She is not feeling any palpitations. Denies any chest pain, no shortness of breath, no cough. She was nauseous. No headache, no blurred visions, no runny nose, no sore throat. She has some mild abdominal discomfort. She has diarrhea, she says it looked black to her. Urine is somewhat concentrated, has some burning micturition. She walks with the help of walker at home. ALLERGIES: DIPHENHYDRAMINE, BUPROPION, CLARITHROMYCIN, ASPIRIN, OXAPROZIN, SALICYLATES. PAST MEDICAL HISTORY: As mentioned above. PAST SURGICAL HISTORY: Colonoscopy, hysteroscopy, multiple EGDs, ERCP, gastric bypass, laparoscopic surgical gastrostomy, laparoscopic cholecystectomy, total abdominal hysterectomy with removal of tubes. MEDICATIONS: The patient is currently taking centrum silver 1 tablet in a.m., Celexa 10 mg p.o. a.m., gabapentin 300 mg p.o. t.i.d., hydroxyzine 25 to 50 mg p.o. b.i.d. p.r.n., loperamide 2 mg p.o. q. 8 hours p.r.n., mirtazapine 15 mg p.o. at bedtime, Zofran 4 mg p.o. q. 12 hours p.r.n., ropinirole 0.25 mg p.o. at bedtime. FAMILY HISTORY: Significant for mother had stroke; father had cancer; three maternal aunts with ovarian cancer; 2 aunts with fibromyalgia. SOCIAL HISTORY: , lives alone. Former smoker. Alcohol, drinks vodka and beer. History of marijuana smoking. REVIEW OF SYSTEMS: As per HPI. Rest of review of systems negative. PHYSICAL EXAMINATION: GENERAL: The patient is thin and frail, not in acute distress. VITAL SIGNS: Temperature 36.5, pulse 120s and 130s, blood pressure 145/85, respiratory rate 24, oxygen 99% on room air. HEENT: No pallor, no icterus. NECK: No JVD, no neck masses. CARDIOVASCULAR: S1, S2 heard. Tachycardia. No murmur, no gallop. RESPIRATORY SYSTEM: Normal AP diameter. No accessory muscle use. No wheezing, no crackles. ABDOMEN: Soft, bowel sounds present. Mild abdominal diffuse discomfort. No guarding. No rigidity. No distention. CENTRAL NERVOUS SYSTEM: Alert and awake and oriented. Obeys commands. Speech is clear. Moves extremities. EXTREMITIES: Bilateral lower extremity are slightly erythematous and warm to palpation. She has some skin peeling in the back of the legs. LABORATORY DATA: WBC 18, hemoglobin 12.4, hematocrit 39, platelets 249. PT 11.9, INR 1.1, APTT 25.7. Sodium 144, potassium 3.5, chloride 108, bicarbonate 16, anion gap 20, BUN 34, creatinine 0.75, serum glucose 110, calcium 9.5, magnesium 2.4, total bilirubin 3, AST 81, ALT 44, alkaline phosphatase 144, total creatinine kinase 413. Troponin 1 of 0.03, lipase 194. Urinalysis positive for ketones, nitrite, leukocyte esterase, and bacteria. Urine drug screen is negative. Ethyl alcohol of less than 3. IMAGING DATA: CT of the abdomen and pelvis without contrast, no acute findings. Nonobstructing left nephrolithiasis. Hepatosteatosis with some mild marginal nodularity suspicious for cirrhotic liver disease. Cervical spine CT, no acute fracture or subluxation. Chest CT no acute intrathoracic findings identified, no acute fracture. CT of the head, no acute intracranial abnormality. ASSESSMENT AND PLAN: This is a 54-year-old female with history of chronic alcoholism, ongoing alcohol abuse, who fell at home and could not get up and called the neighbors and neighbors called candy maker helper and was found to be totally covered with feces and brought in here. She is currently tachycardia, shaky, and UA is positive with leukocytosis. 1. Fall, most likely secondary to alcoholism, possibly from the urinary tract infection. We will treat with fluids and antibiotics. PT and OT when stable. CPK is not highly elevated. We will follow repeat CPK. 2. Alcoholism, ongoing alcohol abuse, multiple admissions. Received banana bag in the ER. We will place her on gabapentin protocol and IV Ativan p.r.n., IV thiamine, IV folic acid. We will hold her home gabapentin dose while she is getting gabapentin taper and closely monitor in the tele floor. IV Lopressor p.r.n. for tachycardia. 3. Diarrhea. She has chronic diarrhea from alcoholism, on Imodium p.r.n. 4. Leukocytosis, urinary tract infection, and lower extremities are warm, slightly erythematous and warm to palpation. Possible cellulitis. Empirically starting on IV Zosyn. We will follow the cultures. 5. Metabolic anion gap acidosis, most likely from alcoholism, also could be from starvation ketosis. Urine ketones are +4 in the urine. We will start on D5 normal saline and follow the response. 6. Depression. Continue mirtazapine and Celexa. 7. History of gastrointestinal bleed. She says stools are black, but hemoglobin is stable. We will check for Hemoccult. We will place on Protonix. 8. Alcoholic liver cirrhosis, history of esophageal varices. Needs counseling for alcohol abstinence. 9. Protein-calorie malnutrition due to chronic alcohol abuse. 10. History of chronic pain syndrome. . History of left hip fracture in the past, currently no longer on narcotic pain medications. 11. Restless leg syndrome, on Requip. 12. Deep venous thrombosis prophylaxis, sequential compression devices for now. 13. Disposition: Closely monitor in the tele floor. Level 1 full code. PT and OT prior to discharge. Social service to help with discharge planning. [facility]
[2019-09-12] MEDS: LORazepam 1 MG/2 ML VIAL IV PRN ×2 (01:26→23:42)
[2019-09-12] MEDS: GABAPENTIN 600 MG TAB PO SCH ×3 (03:30→17:57)
[2019-09-12] MEDS: METOPROLOL TARTRATE 1 MG/ML VIAL IV PRN (03:30)
[2019-09-12] MEDS: PIPERACILLIN/TAZOBACTAM 3.375 GM in DEXTROSE 5% 100 ML IV SCH ×3 (03:30→20:41)
[2019-09-12 05:31] LABS: Basophils # (auto) 0.02 K/uL (0-0.2); Basophils % (auto) 0.2 %; Eosinophils # (auto) 0.02 K/uL (0-0.5); Eosinophils % (auto) 0.2 %; Hematocrit (blood only) 29.5 % (37-47); Hemoglobin 9.8 g/dL (12.0-16.0); Immature Granulocytes # (auto) 0.02 K/uL (0.00-0.02); Immature Granulocytes % (auto) 0.2 %; Lymphocytes # (auto) 1.21 K/uL (1.2-3.4); Lymphocytes % (auto) 9.3 %; Mean Corpuscular Hgb Conc 33.2 g/dL (32-36); Mean Corpuscular Volume 81.3 fL (80-100); Mean Platelet Volume 9.1 fL (7.4-10.4); Monocytes # (auto) 0.88 K/uL (0.11-0.59); Monocytes % (auto) 6.8 %; Neutrophils # (auto) 10.87 K/uL (1.4-6.5); Neutrophils % (auto) 83.3 %; Nucleated RBC # (auto) 0.04 K/uL (0-0); Nucleated RBC % (auto) 0.3 %; Platelet Count 162 K/uL (130-400); RDW Coefficient of Variation 18.4 % (11.5-14.5); Red Blood Count 3.63 M/uL (4.2-5.4); White Blood Count 13.02 K/uL (4.8-10.8)
[2019-09-12 06:03] LABS: BUN Creatinine Ratio 32.8 (10-20); Calcium 8.1 mg/dl (8.5-10.1); Creatinine Clr Calc Pharmacy 68.3 ml/min; Est GFR (African American) 100.7; Est GFR (Non-African American) 86.9; Magnesium 1.9 mg/dl (1.8-2.4); Potassium 2.8 mmol/L (3.5-5.1)
[2019-09-12 06:10] LABS: Phosphorus 0.8 mg/dl (2.5-4.9)
[2019-09-12] MEDS ORDERED: POTASSIUM PHOS 3 MMOL/1 ML INFUSION IV STA (06:10)
[2019-09-12] MEDS ORDERED: POTASSIUM CHLORIDE 20 MEQ/15 ML UDC PO STA (06:13)
[2019-09-12] MEDS ORDERED: POTASSIUM PHOSPHATE 30 MMOL in SODIUM CHLORIDE 0.9% 500 ML IV ONE (06:30)
[2019-09-12] MEDS: POTASSIUM CHLORIDE / WTR 10 MEQ/100 ML PLCT IV SCH ×2 (07:41→08:42)
[2019-09-12] MEDS: D5W AND NSS 1,000 ML IV SCH ×3 (07:43→23:43)
[2019-09-12] MEDS: THIAMINE HCL 100 MG in SYRINGE 9 ML IV SCH (08:20)
[2019-09-12] MEDS: FOLIC ACID 1 MG in SYRINGE 9.8 ML IV SCH (08:20)
[2019-09-12] MEDS: PANTOprazole 40 MG in SYRINGE 0 ML IV SCH ×2 (08:20→20:37)
[2019-09-12] MEDS: CITALOPRAM 20 MG TAB PO SCH (11:04)
[2019-09-12] MEDS: CEROVITE ADV FORMULA TAB PO SCH (11:05)
--- NOTE | 2019-09-12 19:02 | Hospitalist Progress Note ---
Date of Service September 12, 2019 Assessment & Plan (1) Fall: Fell at home while cleaning her house and was not able to get up CT cervical showed no acute fracture or subluxation. CT head showed no acute intracranial abnormality or calvarial fracture. 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 Electrolytes Imbalance Due to alcohol abuse and poor oral intake Potassium 2.8 and Phosphorus 0.8 Electrolytes replaced Continue monitor electrolytes History of left hip Fracture in the past Chronic pain syndrome 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,/drug-seeking behavior, [place] drug monitoring program revealed patient was prescribed fentanyl patch, Dilaudid and oxycodone in the past by primary care physician Patient reports that she is following with a paint roller winder from [employer] and is now off pain medications apparently Patient is not a candidate for any interventional treatment options as per pain management team in the last admission Encourage to use the LSO bracing which she reportedly has access to in the outpatient setting Poor candidate for outpatient opiate due to her prior history of opiate misuse/abuse Follow up with Dr. San/Reece regarding potential resumption of intrathecal opiate therapy Will add on oxycodone Leukocytosis Possible related to reactive WBC 28K on admission WBC 13K today No sign of infection Continue monitor CBC Chronic diarrhea No recent used of abx Continue Loperamide PRN Stable Restless Leg Syndrome Continue Requip DVT prophylaxis: SCDs Full Code Status Disposition Consider placement to rehab Admission and Anticipated Discharge Date Admission Date: September 11, 2019 Subjective Pt was seen and examined Lying in bed with no distress Pt said that she is having tenderness in her L hip area Pt said that she feels scared to go home Pt is interested to go to rehab Denies any chest pain, palpitation, dizziness and SOB Physical Exam Physical Exam: General- No acute distress Head- atraumatic Eyes- PERRL, EOMI, ENT- oropharynx clear Neck- supple, no JVD Lungs- clear to auscultation Heart- regular rhythm; no murmur Abdomen- normal bowel sounds, soft, nontender Extremities- no calf tenderness, small bruises around the left hip area Neuro- alert, oriented x 3; PERRL, EOMI; no facial palsy; no dysarthria Skin- warm & dry Results & Data Results & [facility] ([facility]) Vital Signs (Past 12 Hours) Vital Signs Temp Pulse Pulse Resp BP BP Pulse Ox 09/12/19 16:00 97 H 09/12/19 15:48 37.4 C 110 H 18 116/73 98 09/12/19 13:50 36.6 C 106 H 19 107/71 98 09/12/19 11:21 36.8 C 96 H 19 101/65 96 09/12/19 08:00 108 H 09/12/19 07:31 37.0 C 115 H 19 122/81 92 (1) Fall Encounter type: initial encounter Qualified Code(s): W19.XXXA - Unspecified fall, initial encounter
[2019-09-12 20:11] LABS: BUN Creatinine Ratio 25.6 (10-20); Calcium 7.9 mg/dl (8.5-10.1); Creatinine Clr Calc Pharmacy 77.3 ml/min; Est GFR (African American) 114.1; Est GFR (Non-African American) 98.5
[2019-09-12 20:12] LABS: Phosphorus 1.8 mg/dl (2.5-4.9); Potassium 3.3 mmol/L (3.5-5.1)
[2019-09-12] MEDS: MIRTAZAPINE TAB 15 MG TAB PO SCH (20:38)
[2019-09-12] MEDS: ROPINIROLE HCL 0.25 MG TABLET PO SCH (20:38)
[2019-09-12] MEDS: LOPERAMIDE HCL 2 MG CAP PO PRN (20:50)
[2019-09-12] MEDS: ACETAMINOPHEN 325 MG TAB PO PRN (22:18)
[2019-09-13] MEDS ORDERED: POTASSIUM PHOS 3 MMOL/1 ML INFUSION IV STA (00:16)
[2019-09-13] MEDS ORDERED: POTASSIUM PHOSPHATE 21 MMOL in SODIUM CHLORIDE 0.9% 500 ML IV ONE (00:30)
[2019-09-13] MEDS: D5W AND 1/2NSS 1,000 ML IV SCH ×2 (00:52→16:12)
[2019-09-13] MEDS: LORazepam 1 MG/2 ML VIAL IV PRN ×2 (01:48→08:59)
[2019-09-13] MEDS: GABAPENTIN 600 MG TAB PO SCH ×2 (01:48→10:29)
[2019-09-13] MEDS: PIPERACILLIN/TAZOBACTAM 3.375 GM in DEXTROSE 5% 100 ML IV SCH (04:03)
[2019-09-13 07:35] LABS: Hematocrit (blood only) 26.6 % (37-47); Hemoglobin 8.5 g/dL (12.0-16.0); Mean Corpuscular Hemoglobin 26.8 pg (25-34); Mean Corpuscular Volume 83.9 fL (80-100); Mean Platelet Volume 9.3 fL (7.4-10.4); Nucleated RBC # (auto) 0.04 K/uL (0-0); Platelet Count 105 K/uL (130-400); RDW Coefficient of Variation 19.1 % (11.5-14.5); RDW Standard Deviation 58.5 fL (36.4-46.3); Red Blood Count 3.17 M/uL (4.2-5.4); White Blood Count 4.29 K/uL (4.8-10.8)
[2019-09-13 07:56] LABS: BUN Creatinine Ratio 25.1 (10-20); Calcium 7.3 mg/dl (8.5-10.1); Creatinine Clr Calc Pharmacy 122.6 ml/min; Est GFR (African American) 128.9; Est GFR (Non-African American) 111.2; Potassium 3.1 mmol/L (3.5-5.1)
[2019-09-13 08:07] LABS: Phosphorus 4.2 mg/dl (2.5-4.9)
[2019-09-13] MEDS ORDERED: POTASSIUM CHLORIDE 20 MEQ TABCR PO STA (08:15)
[2019-09-13] MEDS: CEROVITE ADV FORMULA TAB PO SCH (09:00)
[2019-09-13] MEDS: CITALOPRAM 20 MG TAB PO SCH (09:00)
[2019-09-13] MEDS: PANTOprazole 40 MG in SYRINGE 0 ML IV SCH ×2 (09:00→19:58)
[2019-09-13] MEDS: FOLIC ACID 1 MG in SYRINGE 9.8 ML IV SCH (09:01)
[2019-09-13] MEDS: THIAMINE HCL 100 MG in SYRINGE 9 ML IV SCH (09:01)
[2019-09-13] MEDS: LOPERAMIDE HCL 2 MG CAP PO PRN ×2 (13:20→19:34)
[2019-09-13] MEDS: OXYCODONE HCL IR 5 MG TAB (IMMEDIATE RELEASE) PO PRN ×2 (13:20→20:29)
[2019-09-13] MEDS: ACETAMINOPHEN 325 MG TAB PO PRN (17:01)
[2019-09-13] MEDS: cephALEXin 500 MG CAP PO SCH (19:58)
[2019-09-13] MEDS: MIRTAZAPINE TAB 15 MG TAB PO SCH (19:59)
[2019-09-13] MEDS: ROPINIROLE HCL 0.25 MG TABLET PO SCH (20:00)
--- NOTE | 2019-09-13 20:00 | Hospitalist Progress Note ---
Date of Service September 13, 2019 Assessment & Plan (1) Fall: Fell at home while cleaning her house and was not able to get up CT cervical showed no acute fracture or subluxation. CT head showed no acute intracranial abnormality or calvarial fracture. 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 Electrolytes Imbalance Due to alcohol abuse and poor oral intake Potassium 2.8 and Phosphorus 0.8 Electrolytes replaced Continue monitor electrolytes History of left hip Fracture in the past Chronic pain syndrome 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,/drug-seeking behavior, [place] drug monitoring program revealed patient was prescribed fentanyl patch, Dilaudid and oxycodone in the past by primary care physician Patient reports that she is following with a paint and table edger from [place] and is now off pain medications apparently Patient is not a candidate for any interventional treatment options as per pain management team in the last admission Encourage to use the LSO bracing which she reportedly has access to in the outpatient setting Poor candidate for outpatient opiate due to her prior history of opiate misuse/abuse Follow up with Dr. San/Reece regarding potential resumption of intrathecal opiate therapy Continue oxycodone 5 mg q8h Leukocytosis Possible related to reactive WBC 28K on admission WBC dropped from 13K to 4.2 No sign of infection Continue monitor CBC Chronic diarrhea No recent used of abx Continue Loperamide PRN Stable Restless Leg Syndrome Continue Requip DVT prophylaxis: SCDs Full Code Status Disposition Consider placement to rehab Admission and Anticipated Discharge Date Admission Date: September 11, 2019 Subjective Pt was seen and examined Lying in bed with no distress Pt has been asking for more narcotic I started her on Oxycodone q8h today She wanted to get oxycodone every 4 to 6 hrs I told her that she did not get any narcotic for 1 week She said that she had narcotic at home I asked her who prescribed her the narcotic, she said that she got it the last time she was discharged I told her that i discharged her the last time and i did not give her any narcotic script She said that she got it from her PCP, then i said how because her follow up appointment with her PCP was on 09/10 and she missed it She said that she had a few pills of oxycodone left at home that she was taking Pt said that she continues to have diarrhea Denies any chest pain, palpitation and SOB Physical Exam Physical Exam: General- No acute distress Head- atraumatic Eyes- PERRL, EOMI, ENT- oropharynx clear Neck- supple, no JVD Lungs- clear to auscultation Heart- regular rhythm; no murmur Abdomen- normal bowel sounds, soft, nontender Extremities- no calf tenderness, small bruises around the left hip area Neuro- alert, oriented x 3; PERRL, EOMI; no facial palsy; no dysarthria Skin- warm & dry Results & Data Results & Data ([facility]) Vital Signs (Past 12 Hours) Vital Signs Temp Pulse Pulse Resp BP Pulse Ox 09/13/19 19:43 37.0 C 91 H 18 131/85 97 09/13/19 16:07 36.5 C 106 H 16 148/84 H 99 09/13/19 16:00 99 H 09/13/19 10:53 37.1 C 100 H 19 115/75 99 09/13/19 08:56 36.8 C 105 H 18 132/84 09/13/19 08:30 94 H (1) Fall Encounter type: initial encounter Qualified Code(s): W19.XXXA - Unspecified fall, initial encounter
[2019-09-13] MEDS ORDERED: GABAPENTIN 600 MG TAB PO SCH (22:00)
[2019-09-13] MEDS ORDERED: PHENAZOPYRIDINE HCL 200 MG TAB PO STA (22:58)
[2019-09-13] MEDS ORDERED: MELATONIN 3 MG TAB PO PRN (22:59)
[2019-09-13 23:13] LABS: Basophils # (auto) 0.02 K/uL (0-0.2); Basophils % (auto) 0.3 %; Eosinophils % (auto) 3.3 %; Hematocrit (blood only) 30.2 % (37-47); Hemoglobin 9.4 g/dL (12.0-16.0); Immature Granulocytes # (auto) 0.05 K/uL (0.00-0.02); Immature Granulocytes % (auto) 0.8 %; Lymphocytes # (auto) 1.46 K/uL (1.2-3.4); Mean Corpuscular Hemoglobin 26.6 pg (25-34); Mean Corpuscular Hgb Conc 31.1 g/dL (32-36); Mean Corpuscular Volume 85.6 fL (80-100); Mean Platelet Volume 9.8 fL (7.4-10.4); Monocytes # (auto) 0.44 K/uL (0.11-0.59); Monocytes % (auto) 7.2 %; Neutrophils # (auto) 3.91 K/uL (1.4-6.5); Neutrophils % (auto) 64.4 %; Nucleated RBC # (auto) 0.05 K/uL (0-0); Nucleated RBC % (auto) 0.8 %; Platelet Count 117 K/uL (130-400); RDW Coefficient of Variation 19.1 % (11.5-14.5); RDW Standard Deviation 58.7 fL (36.4-46.3); Red Blood Count 3.53 M/uL (4.2-5.4); White Blood Count 6.08 K/uL (4.8-10.8)
[2019-09-13 23:24] LABS: INR 1.1 (0.9-1.1); Prothrombin Time 11.4 Seconds (9.0-12.0)
[2019-09-13 23:32] LABS: Albumin Level 2.9 gm/dl (3.4-5.0); BUN Creatinine Ratio 19.1 (10-20); Calcium 7.8 mg/dl (8.5-10.1); Creatinine Clr Calc Pharmacy 120.1 ml/min; Est GFR (Non-African American) 110.4; Potassium 3.8 mmol/L (3.5-5.1)
[2019-09-13 23:46] LABS: Albumin Globulin Ratio 0.9 (0.9-2); Bilirubin,Total 0.5 mg/dl (0.2-1); Globulin 3.3 gm/dl (2.5-4.0); Total Protein 6.2 gm/dl (6.4-8.2)
[2019-09-14] MEDS ORDERED: IOVERSOL 100ml IV ONE (00:09)
--- NOTE | 2019-09-14 01:26 | Communication Note ---
Date of Service: September 14, 2019 Patient complaining of headache, worsening abdominal pain and diarrhea symptoms. No fever, no chills. CT head initial read: No acute intracranial hemorrhage, mass-effect, midline shift, hydrocephalus or acute infarct. CT abdomen pelvis initial read: Cirrhosis, splenomegaly, stable mild ascites. Status post gastric bypass. Circumferential wall thickening of the terminal ileum without surrounding inflammatory changes probably due to underdistention or portal enteropathy. Infectious enteritis versus IBD. Ileus versus infectious colitis. Normal appendix. AP Worsening chronic diarrhea Possible colitis initial CT read Rule out C. difficile Stool C. difficile Hold Imodium until C. difficile ruled out. Will relay to AM provider.
--- NOTE | 2019-09-14 06:39 | CT Scan Report ---
CT head/brain wo con CLINICAL HISTORY: 54 years-old Female with casey. Acute headache TECHNIQUE: Multiple axial CT images of the head were obtained without contrast. A dose lowering tech nique was utilized adhering to the principles of ALARA. CT DOSE: 614.27 mGy.cm COMPARISON: Head CT 09/11/2019 FINDINGS: No acute intracranial hemorrhage, midline shift, intracranial mass, hydrocephalus, territorial ischem ia or abnormal extra-axial collection. The calvarium is intact. The paranasal sinuses, mastoid air cells, and middle ear cavities are clear . IMPRESSION: No acute intracranial abnormality. ACT 112: Negative or not required by law. The above report was generated using voice recognition software. It may contain grammatical, syntax o r spelling errors. Electronically signed by: Brennon Matos M.D. 09/14/2019 6:38 AM
[2019-09-14 07:14] LABS: Hematocrit (blood only) 29.3 % (37-47); Hemoglobin 9.2 g/dL (12.0-16.0); Mean Corpuscular Hemoglobin 26.8 pg (25-34); Mean Corpuscular Hgb Conc 31.4 g/dL (32-36); Mean Corpuscular Volume 85.4 fL (80-100); Nucleated RBC # (auto) 0.04 K/uL (0-0); RDW Standard Deviation 58.5 fL (36.4-46.3); Red Blood Count 3.43 M/uL (4.2-5.4); White Blood Count 3.88 K/uL (4.8-10.8)
--- NOTE | 2019-09-14 07:18 | CT Scan Report ---
CT OF THE ABDOMEN AND PELVIS WITH CONTRAST CLINICAL HISTORY: Worsening abdominal pain. COMPARISON STUDY: CT of the abdomen and pelvis September 11, 2019. TECHNIQUE: Following IV administration of 93 mL of Optiray-320, axial images of the abdomen and pelvi s were obtained from the lung bases to the proximal femurs. Images were reviewed in the axial, sagitt al, and coronal planes. IV contrast was administered without complication. Automated exposure contro l was utilized for the study. A dose lowering technique was utilized adhering to the principles of A KATLYN. CT DOSE: 353.16 mGy.cm FINDINGS: Lung bases are unremarkable. No pneumatosis, free air or portal venous gas is present. A sm all amount of ascites has developed since CT of September 03, 2019. Ascites was shown on CT of August 24. Fatty infiltration of the liver is noted. Enlargement of the lateral segment is noted. The findin gs suggest cirrhosis. Mild splenomegaly is unchanged. Mild biliary ductal dilatation is unchanged and likely related to cholecystectomy. The adrenal glands and kidneys are unremarkable with exception of a small left renal calculus. There are no ureteral calculi. There is no hydronephrosis. Collaterals are noted. Patient is status post Jeffy-en-Y gastric bypass. There is no evidence for a bowel obstruct ion. Mild wall thickening of the duodenum is unchanged since CT of August 25, 2019. No lymphadenopathy is present. The main, left and right portal veins are patent. Pancreatic glandular atrophy is again n oted. The appearance of the pancreas is unchanged. Several old lumbar spine compression fractures are noted. There is no abscess. Left femoral internal fixation is noted. IMPRESSION: 1. Interval development of a small amount of ascites since CT of September 11, 2019. This finding will be called/faxed to the ordering provider at time of dictation. Cirrhosis with manifestations of portal h ypertension including splenomegaly, collateral formation and ascites. 2. No bowel obstruction status post Jeffy-en-Y gastric bypass. 3. Left-sided nephrolithiasis. No ureteral calculi or hydronephrosis. ACT 112: Negative or not required by law. Electronically signed by: Benedict Vaughn M.D. 09/14/2019 7:17 AM
[2019-09-14] MEDS: D5W AND 1/2NSS 1,000 ML IV SCH ×2 (07:26→16:19)
[2019-09-14] MEDS: ACETAMINOPHEN 325 MG TAB PO PRN ×3 (07:29→22:18)
[2019-09-14] MEDS: OXYCODONE HCL IR 5 MG TAB (IMMEDIATE RELEASE) PO PRN ×3 (07:29→22:17)
[2019-09-14 07:41] LABS: Anisocytosis Present; Basophils # (auto) 0.02 K/uL (0-0.2); Basophils % (auto) 0.5 %; Eosinophils # (auto) 0.17 K/uL (0-0.5); Eosinophils % (auto) 4.4 %; Immature Granulocytes # (auto) 0.04 K/uL (0.00-0.02); Lymphocytes % (auto) 25.8 %; Mean Platelet Volume 9.9 fL (7.4-10.4); Monocytes # (auto) 0.22 K/uL (0.11-0.59); Monocytes % (auto) 5.7 %; Neutrophils # (auto) 2.43 K/uL (1.4-6.5); Neutrophils % (auto) 62.6 %; Pappenheimer Bodies 1+; Platelet Count 92 K/uL (130-400); Platelet Estimate Decreased (Normal)
[2019-09-14 07:48] LABS: Albumin Globulin Ratio 0.8 (0.9-2); Albumin Level 2.6 gm/dl (3.4-5.0); BUN Creatinine Ratio 12.5 (10-20); Bilirubin,Total 0.7 mg/dl (0.2-1); Calcium 7.7 mg/dl (8.5-10.1); Creatinine Clr Calc Pharmacy 103.1 ml/min; Est GFR (African American) 125.5; Est GFR (Non-African American) 108.3; Globulin 3.1 gm/dl (2.5-4.0); Potassium 3.1 mmol/L (3.5-5.1); Total Protein 5.7 gm/dl (6.4-8.2)
[2019-09-14] MEDS: FOLIC ACID 1 MG in SYRINGE 9.8 ML IV SCH (08:33)
[2019-09-14] MEDS: PANTOprazole 40 MG in SYRINGE 0 ML IV SCH ×2 (08:33→20:53)
[2019-09-14] MEDS: THIAMINE HCL 100 MG in SYRINGE 9 ML IV SCH (08:34)
[2019-09-14] MEDS: CEROVITE ADV FORMULA TAB PO SCH (08:34)
[2019-09-14] MEDS: cephALEXin 500 MG CAP PO SCH ×2 (08:34→20:53)
[2019-09-14] MEDS: CITALOPRAM 20 MG TAB PO SCH (08:34)
[2019-09-14] MEDS: ONDANSETRON INJ 2 MG/ML 2 ML VIAL IV PRN ×2 (08:39→20:49)
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
[2019-09-14] MEDS: LOPERAMIDE HCL 2 MG CAP PO PRN ×2 (11:27→20:56)
[2019-09-14] MEDS ORDERED: PROMETHAZINE HCL 12.5 MG in SODIUM CHLORIDE 0.9% 50 ML IV PRN (12:19)
[2019-09-14] MEDS: GABAPENTIN 300 MG CAP PO SCH ×2 (14:09→20:52)
[2019-09-14] MEDS: LIDOCAINE 5% 1 PATCH TD SCH (14:45)
--- NOTE | 2019-09-14 18:35 | Hospitalist Progress Note ---
Date of Service September 14, 2019 Assessment & Plan (1) Fall: Fell at home while cleaning her house and was not able to get up CT cervical showed no acute fracture or subluxation. CT head showed no acute intracranial abnormality or calvarial fracture. Fall precaution PT/OT eval pain control Alcohol Abuse History of ongoing chronic alcohol abuse Pt said that she drank alcohol to help her with the pain because she cannot get narcotic On gabapentin and lorazepam alcohol withdrawal protocol No sign of alcohol withdrawal Continue folic acid and thiamine Will resume gabapentin 300mg home dose TID Counseling on alcohol cessation Alcohol liver cirrhosis History of esophageal varices No signs of decompensation recent EGD grade [address] Pelvis /abd showed interval development of a small amount of ascites since CT of September 11, 2019. Counselled for strict alcohol abstinence have been done on this admission gastro on board Case discussed with GI and said that pt known for Cirrhosis with EV and previously had ascites She had recent EGD in 08/03, GI would defer repeating EGD for now Starting on PPI BID Recommended Liver U/S every 6 month and AFP 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 abuse Die Mounter on board Electrolytes Imbalance Due to alcohol abuse and poor oral intake Potassium 2.8 and Phosphorus 0.8 Electrolytes replaced Continue monitor electrolytes History of left hip Fracture in the past Chronic pain syndrome 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,/drug-seeking behavior, [place] drug monitoring program revealed patient was prescribed fentanyl patch, Dilaudid and oxycodone in the past by primary care physician Patient reports that she is following with a paint roller assembler from [place] and is now off pain medications apparently Patient is not a candidate for any interventional treatment options as per pain management team in the last admission Encourage to use the LSO bracing which she reportedly has access to in the outpatient setting Poor candidate for outpatient opiate due to her prior history of opiate misuse/abuse Follow up with Dr. San/Reece regarding potential resumption of intrathecal opiate therapy Continue oxycodone 5 mg q8h Leukocytosis Possible related to reactive WBC 28K on admission WBC dropped from 13K to 4.2 No sign of infection Continue monitor CBC Chronic diarrhea No recent used of abx Stools for Cdiff negative Continue Loperamide PRN Gastro recommended colonoscopy outpatient Restless Leg Syndrome Continue Requip DVT prophylaxis: SCDs Full Code Status Disposition Consider placement to rehab Admission and Anticipated Discharge Date Admission Date: September 11, 2019 Subjective Pt was seen and examined Lying in bed with no distress eating lunch Pt continues to ask for narcotic q4h prn She vomited today because i made her upset since i don't want to change the Oxycodone q8h She said that when she gets upset she vomits I told her that i would not change the narcotic to q4hr because Nurse said that she was very drowsy this morning Son spoke to counter caser to inform that pt does not open the door for the home health nurses to enter that they can provide care for her Denies any chest pain, palpitation and SOB Physical Exam Physical Exam: General- No acute distress Head- atraumatic Eyes- PERRL, EOMI, ENT- oropharynx clear Neck- supple, no JVD Lungs- clear to auscultation Heart- regular rhythm; no murmur Abdomen- normal bowel sounds, soft, nontender Extremities- no calf tenderness, small bruises around the left hip area Neuro- alert, oriented x 3; PERRL, EOMI; no facial palsy; no dysarthria Skin- warm & dry Results & Data Results & Data ([facility]) Vital Signs (Past 12 Hours) Vital Signs Temp Pulse Pulse Resp BP Pulse Ox 09/14/19 17:13 96 H 09/14/19 15:25 36.9 C 96 H 20 134/84 96 09/14/19 12:02 36.6 C 91 H 18 127/82 97 09/14/19 10:49 95 H 09/14/19 07:00 36.7 C 88 19 137/96 98 (1) Fall Encounter type: initial encounter Qualified Code(s): W19.XXXA - Unspecified fall, initial encounter
[2019-09-14] MEDS: ROPINIROLE HCL 0.25 MG TABLET PO SCH (20:52)
[2019-09-14] MEDS: MIRTAZAPINE TAB 15 MG TAB PO SCH (20:52)
[2019-09-15] MEDS: ACETAMINOPHEN 325 MG TAB PO PRN ×2 (04:10→20:23)
[2019-09-15] MEDS: LOPERAMIDE HCL 2 MG CAP PO PRN ×2 (04:10→12:54)
[2019-09-15] MEDS: OXYCODONE HCL IR 5 MG TAB (IMMEDIATE RELEASE) PO PRN ×2 (05:56→14:06)
[2019-09-15] MEDS: LIDOCAINE 5% 1 PATCH TD SCH (07:25)
[2019-09-15] MEDS: CEROVITE ADV FORMULA TAB PO SCH (07:26)
[2019-09-15] MEDS: cephALEXin 500 MG CAP PO SCH ×2 (07:26→20:21)
[2019-09-15] MEDS: CITALOPRAM 20 MG TAB PO SCH (07:26)
[2019-09-15] MEDS: GABAPENTIN 300 MG CAP PO SCH ×3 (07:27→20:21)
[2019-09-15] MEDS: THIAMINE HCL 100 MG in SYRINGE 9 ML IV SCH (07:32)
[2019-09-15] MEDS: PANTOprazole 40 MG in SYRINGE 0 ML IV SCH (07:32)
[2019-09-15] MEDS: FOLIC ACID 1 MG in SYRINGE 9.8 ML IV SCH (07:32)
[2019-09-15 07:56] LABS: BUN Creatinine Ratio 13.8 (10-20); Calcium 7.8 mg/dl (8.5-10.1); Creatinine Clr Calc Pharmacy 116.8 ml/min; Est GFR (African American) 130.7; Est GFR (Non-African American) 112.8; Magnesium 1.8 mg/dl (1.8-2.4); Potassium 3.2 mmol/L (3.5-5.1)
[2019-09-15] MEDS ORDERED: POTASSIUM CHLORIDE 20 MEQ TABCR PO STA (09:18)
[2019-09-15] MEDS ORDERED: GABAPENTIN 600 MG TAB PO SCH (10:00)
--- NOTE | 2019-09-15 13:49 | Electrocardiogram Report ---
Test Reason : Blood Pressure : / mmHG Vent. Rate : 088 BPM Atrial Rate : 088 BPM P-R Int : 190 ms QRS Dur : 094 ms QT Int : 368 ms P-R-T Axes : 021 -25 034 degrees QTc Int : 445 ms Normal sinus rhythm Minimal voltage criteria for LVH, may be normal variant Anterior infarct (cited on or before 17-APR-2019) Abnormal ECG When compared with ECG of 13-AUG-2019 17:07, Nonspecific T wave abnormality now evident in Inferior leads T wave amplitude has decreased in Lateral leads Confirmed by Delano Maria ([id number]) on 09/15/2019 1:48:49 PM Referred By: REFERRED SELF Confirmed By:Delano Maria
--- NOTE | 2019-09-15 19:08 | Hospitalist Progress Note ---
Date of Service September 15, 2019 Assessment & Plan (1) Fall: Fell at home while cleaning her house and was not able to get up CT cervical showed no acute fracture or subluxation. CT head showed no acute intracranial abnormality or calvarial fracture. Fall precaution PT/OT eval pain control Alcohol Abuse History of ongoing chronic alcohol abuse Pt said that she drank alcohol to help her with the pain because she cannot get narcotic Completed gabapentin and lorazepam alcohol withdrawal protocol No sign of alcohol withdrawal Continue folic acid and thiamine Continue gabapentin 300mg home dose TID Counseling on alcohol cessation Alcohol liver cirrhosis History of esophageal varices No signs of decompensation recent EGD grade [address] Pelvis /abd showed interval development of a small amount of ascites since CT of September 11, 2019. Counselled for strict alcohol abstinence have been done on this admission gastro on board Case discussed with GI and said that pt known for Cirrhosis with EV and previously had ascites She had recent EGD in 08/03, GI would defer repeating EGD for now Starting on PPI BID Recommended Liver U/S every 6 month and AFP 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 abuse Pilot on board Electrolytes Imbalance Due to alcohol abuse and poor oral intake Potassium 3.2 today Electrolytes replaced Continue monitor electrolytes History of left hip Fracture in the past Chronic pain syndrome 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,/drug-seeking behavior, [place] drug monitoring program revealed patient was prescribed fentanyl patch, Dilaudid and oxycodone in the past by primary care physician Patient reports that she is following with a paperhanger and painter from [place] and is now off pain medications apparently Patient is not a candidate for any interventional treatment options as per pain management team in the last admission Encourage to use the LSO bracing which she reportedly has access to in the outpatient setting Poor candidate for outpatient opiate due to her prior history of opiate misuse/abuse Follow up with Dr. San/Reece regarding potential resumption of intrathecal opiate therapy Continue oxycodone 5 mg q8h Leukocytosis Possible related to reactive WBC 28K on admission WBC dropped from 13K to 4.2 No sign of infection Continue monitor CBC Chronic diarrhea No recent used of abx Stools for Cdiff negative Continue Loperamide PRN Gastro recommended colonoscopy outpatient Restless Leg Syndrome Continue Requip DVT prophylaxis: SCDs Full Code Status Disposition Consider placement to rehab Admission and Anticipated Discharge Date Admission Date: September 11, 2019 Subjective Pt was seen and examined Lying in bed with no distress Pt said she feels a little better today She said that she walked with therapy today She said that her appetite is good Denies any chest pain, palpitation, dizziness and SOB Physical Exam Physical Exam: General- No acute distress Head- atraumatic Eyes- PERRL, EOMI, ENT- oropharynx clear Neck- supple, no JVD Lungs- clear to auscultation Heart- regular rhythm; no murmur Abdomen- normal bowel sounds, soft, nontender Extremities- no calf tenderness, small bruises around the left hip area Neuro- alert, oriented x 3; PERRL, EOMI; no facial palsy; no dysarthria Skin- warm & dry Results & Data Results & Data ([facility]) Vital Signs (Past 12 Hours) Vital Signs Temp Pulse Pulse Resp BP Pulse Ox 09/15/19 15:21 37.1 C 82 16 132/82 96 09/15/19 07:46 37.0 C 76 20 134/86 96 (1) Fall Encounter type: initial encounter Qualified Code(s): W19.XXXA - Unspecified fall, initial encounter
[2019-09-15] MEDS: ONDANSETRON INJ 2 MG/ML 2 ML VIAL IV PRN (19:11)
[2019-09-15] MEDS ORDERED: POTASSIUM CHLORIDE 20 MEQ TABCR PO ONE (20:00)
[2019-09-15] MEDS: PANTOprazole 40 MG TAB PO SCH (20:21)
[2019-09-15] MEDS: MIRTAZAPINE TAB 15 MG TAB PO SCH (20:21)
[2019-09-15] MEDS: ROPINIROLE HCL 0.25 MG TABLET PO SCH (20:21)
[2019-09-16] MEDS: OXYCODONE HCL IR 5 MG TAB (IMMEDIATE RELEASE) PO PRN ×4 (02:46→20:57)
[2019-09-16] MEDS: LOPERAMIDE HCL 2 MG CAP PO PRN ×3 (02:46→16:24)
[2019-09-16] MEDS: ACETAMINOPHEN 325 MG TAB PO PRN ×4 (02:48→20:57)
[2019-09-16 06:55] LABS: BUN Creatinine Ratio 14.2 (10-20); Calcium 8.3 mg/dl (8.5-10.1); Creatinine Clr Calc Pharmacy 107.3 ml/min; Est GFR (African American) 127.1; Est GFR (Non-African American) 109.7; Potassium 3.1 mmol/L (3.5-5.1)
[2019-09-16] MEDS: ONDANSETRON INJ 2 MG/ML 2 ML VIAL IV PRN ×3 (08:18→22:32)
[2019-09-16] MEDS: THIAMINE HCL 100 MG in SYRINGE 9 ML IV SCH (08:18)
[2019-09-16] MEDS: FOLIC ACID 1 MG in SYRINGE 9.8 ML IV SCH (08:19)
[2019-09-16] MEDS: PANTOprazole 40 MG TAB PO SCH ×2 (08:20→20:55)
[2019-09-16] MEDS: CEROVITE ADV FORMULA TAB PO SCH (08:20)
[2019-09-16] MEDS: cephALEXin 500 MG CAP PO SCH ×2 (08:21→20:56)
[2019-09-16] MEDS: GABAPENTIN 300 MG CAP PO SCH ×2 (08:21→13:19)
[2019-09-16] MEDS: CITALOPRAM 20 MG TAB PO SCH (08:22)
[2019-09-16] MEDS: LIDOCAINE 5% 1 PATCH TD SCH (08:23)
[2019-09-16] MEDS ORDERED: POTASSIUM CHLORIDE 20 MEQ TABCR PO STA (09:31)
--- NOTE | 2019-09-16 19:29 | Hospitalist Progress Note ---
Date of Service September 16, 2019 Assessment & Plan (1) Fall: Fell at home while cleaning her house and was not able to get up CT cervical showed no acute fracture or subluxation. CT head showed no acute intracranial abnormality or calvarial fracture. Fall precaution PT/OT eval pain control Alcohol Abuse History of ongoing chronic alcohol abuse Pt said that she drank alcohol to help her with the pain because she cannot get narcotic Completed gabapentin and lorazepam alcohol withdrawal protocol No sign of alcohol withdrawal Continue folic acid and thiamine Continue gabapentin TID Counseling on alcohol cessation Alcohol liver cirrhosis History of esophageal varices No signs of decompensation recent EGD grade [address] Pelvis /abd showed interval development of a small amount of ascites since CT of September 11, 2019. Counselled for strict alcohol abstinence have been done on this admission gastro on board Case discussed with GI and said that pt known for Cirrhosis with EV and previously had ascites She had recent EGD in 08/03, GI would defer repeating EGD for now Starting on PPI BID Recommended Liver U/S every 6 month and AFP 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 abuse Chief Embalmer on board Electrolytes Imbalance Due to alcohol abuse and poor oral intake Potassium 3.2 today Electrolytes replaced Continue monitor electrolytes History of left hip Fracture in the past Chronic pain syndrome 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,/drug-seeking behavior, [place] drug monitoring program revealed patient was prescribed fentanyl patch, Dilaudid and oxycodone in the past by primary care physician Patient reports that she is following with a paintings restorer from [place] and is now off pain medications apparently Patient is not a candidate for any interventional treatment options as per pain management team in the last admission Encourage to use the LSO bracing which she reportedly has access to in the outpatient setting Poor candidate for outpatient opiate due to her prior history of opiate misuse/abuse Follow up with Dr. San/Reece regarding potential resumption of intrathecal opiate therapy Continue oxycodone 5 mg q8h Will increase gapapentin to 400mg TID Leukocytosis Possible related to reactive WBC 28K on admission WBC dropped from 13K to 4.2 No sign of infection Continue monitor CBC Chronic diarrhea No recent used of abx Stools for Cdiff negative Continue Loperamide PRN Gastro recommended colonoscopy outpatient Restless Leg Syndrome Continue Requip DVT prophylaxis: SCDs Full Code Status Disposition Consider placement to rehab Admission and Anticipated Discharge Date Admission Date: September 11, 2019 Subjective Pt was seen and examined Lying in bed with no distress Pt looks much better today She was able to smile She continues to have diarrhea denies any chest pain, palpitation and SOB Physical Exam Physical Exam: General- No acute distress Head- atraumatic Eyes- PERRL, EOMI, ENT- oropharynx clear Neck- supple, no JVD Lungs- clear to auscultation Heart- regular rhythm; no murmur Abdomen- normal bowel sounds, soft, nontender Extremities- no calf tenderness, small bruises around the left hip area Neuro- alert, oriented x 3; PERRL, EOMI; no facial palsy; no dysarthria Skin- warm & dry Results & Data Results & Data ([facility]) Vital Signs (Past 12 Hours) Vital Signs Temp Pulse Resp BP Pulse Ox 09/16/19 14:38 36.8 C 65 16 122/78 96 09/16/19 07:28 37.1 C 85 16 133/86 97 (1) Fall Encounter type: initial encounter Qualified Code(s): W19.XXXA - Unspecified fall, initial encounter
[2019-09-16] MEDS: ROPINIROLE HCL 0.25 MG TABLET PO SCH (20:56)
[2019-09-16] MEDS: GABAPENTIN 400 MG CAP PO SCH (20:56)
[2019-09-16] MEDS: MIRTAZAPINE TAB 15 MG TAB PO SCH (20:57)
[2019-09-17] MEDS: ACETAMINOPHEN 325 MG TAB PO PRN ×4 (02:54→21:09)
[2019-09-17] MEDS: OXYCODONE HCL IR 5 MG TAB (IMMEDIATE RELEASE) PO PRN ×4 (02:55→21:08)
[2019-09-17] MEDS: THIAMINE HCL 100 MG in SYRINGE 9 ML IV SCH (09:09)
[2019-09-17] MEDS: FOLIC ACID 1 MG in SYRINGE 9.8 ML IV SCH (09:09)
[2019-09-17] MEDS: LIDOCAINE 5% 1 PATCH TD SCH (09:10)
[2019-09-17] MEDS: CITALOPRAM 20 MG TAB PO SCH (09:10)
[2019-09-17] MEDS: GABAPENTIN 400 MG CAP PO SCH ×3 (09:10→20:55)
[2019-09-17] MEDS: CEROVITE ADV FORMULA TAB PO SCH (09:11)
[2019-09-17] MEDS: PANTOprazole 40 MG TAB PO SCH ×2 (09:11→20:55)
[2019-09-17] MEDS: cephALEXin 500 MG CAP PO SCH ×2 (09:11→20:55)
[2019-09-17 11:37] LABS: BUN Creatinine Ratio 13.7 (10-20); Calcium 7.9 mg/dl (8.5-10.1); Creatinine Clr Calc Pharmacy 80.9 ml/min; Est GFR (African American) 115.8; Est GFR (Non-African American) 99.9; Potassium 3.7 mmol/L (3.5-5.1)
[2019-09-17] MEDS: LOPERAMIDE HCL 2 MG CAP PO PRN (11:53)
[2019-09-17] MEDS: ONDANSETRON INJ 2 MG/ML 2 ML VIAL IV PRN (13:21)
--- NOTE | 2019-09-17 18:32 | Hospitalist Progress Note ---
Date of Service September 17, 2019 Assessment & Plan (1) Fall: Fell at home while cleaning her house and was not able to get up CT cervical showed no acute fracture or subluxation. CT head showed no acute intracranial abnormality or calvarial fracture. Fall precaution PT/OT eval pain control Alcohol Abuse History of ongoing chronic alcohol abuse Pt said that she drank alcohol to help her with the pain because she cannot get narcotic Completed gabapentin and lorazepam alcohol withdrawal protocol No sign of alcohol withdrawal Continue folic acid and thiamine Continue gabapentin TID Counseling on alcohol cessation Alcohol liver cirrhosis History of esophageal varices No signs of decompensation recent EGD grade [address] Pelvis /abd showed interval development of a small amount of ascites since CT of September 11, 2019. 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 Electrolytes Imbalance Due to alcohol abuse and poor oral intake Potassium 3.7 today Stable Continue monitor electrolytes History of left hip Fracture in the past Chronic pain syndrome 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,/drug-seeking behavior, [place] drug monitoring program revealed patient was prescribed fentanyl patch, Dilaudid and oxycodone in the past by primary care physician Patient reports that she is following with a touch up painter from [place] and is now off pain medications apparently Patient is not a candidate for any interventional treatment options as per pain management team in the last admission Encourage to use the LSO bracing which she reportedly has access to in the outpatient setting Poor candidate for outpatient opiate due to her prior history of opiate misuse/abuse Follow up with Dr. San/Reece regarding potential resumption of intrathecal opiate therapy Continue oxycodone 5 mg q8h Continue Gabapentin 400mg TID UTI Leukocytosis WBC 28K on admission WBC dropped from 13K to 4.2 Urine cx grew klebsiella Will complete the course of Keflex Stable Chronic diarrhea No recent used of abx Stools for Cdiff negative Continue Loperamide PRN Nogueira on board case discussed with gastro team that plan for Colonoscopy on Tuesday Will put on clear liquid diet today for the prep GI will order bowel prep tomorrow Restless Leg Syndrome Continue Requip DVT prophylaxis: SCDs Full Code Status Disposition Consider placement to rehab Admission and Anticipated Discharge Date Admission Date: September 11, 2019 Subjective Pt was seen and examined Lying in bed with no distress Pt said that she had about 15 BM yesterday (no one able to confirm that) She said that she had 8 BM today (no one able to confirm that) Spoke to GI today and was planning to get colonoscopy done outpatient Pt would like to get the colonoscopy done while inpatient because she has no ride to go to [facility] for the colonoscopy Denies any chest pain, palpitation, dizziness and SOB Physical Exam Physical Exam: General- No acute distress Head- atraumatic Eyes- PERRL, EOMI, ENT- oropharynx clear Neck- supple, no JVD Lungs- clear to auscultation Heart- regular rhythm; no murmur Abdomen- normal bowel sounds, soft, nontender Extremities- no calf tenderness, small bruises around the left hip area Neuro- alert, oriented x 3; PERRL, EOMI; no facial palsy; no dysarthria Skin- warm & dry Results & Data Results & Data ([facility]) Vital Signs (Past 12 Hours) Vital Signs Temp Pulse Resp BP Pulse Ox 09/17/19 08:00 37.1 C 73 18 112/76 97 (1) Fall Encounter type: initial encounter Qualified Code(s): W19.XXXA - Unspecified fall, initial encounter
[2019-09-17] MEDS ORDERED: POTASSIUM CHLORIDE 20 MEQ TABCR PO ONE (20:00)
[2019-09-17] MEDS: ROPINIROLE HCL 0.25 MG TABLET PO SCH (20:56)
[2019-09-17] MEDS: MIRTAZAPINE TAB 15 MG TAB PO SCH (20:56)
[2019-09-18] MEDS: OXYCODONE HCL IR 5 MG TAB (IMMEDIATE RELEASE) PO PRN ×4 (03:06→21:22)
[2019-09-18] MEDS: ACETAMINOPHEN 325 MG TAB PO PRN ×4 (03:07→21:22)
[2019-09-18] MEDS: CITALOPRAM 20 MG TAB PO SCH (09:38)
[2019-09-18] MEDS: FOLIC ACID 1 MG in SYRINGE 9.8 ML IV SCH (09:38)
[2019-09-18] MEDS: THIAMINE HCL 100 MG in SYRINGE 9 ML IV SCH (09:38)
[2019-09-18] MEDS: GABAPENTIN 400 MG CAP PO SCH ×3 (09:39→20:26)
[2019-09-18] MEDS: PANTOprazole 40 MG TAB PO SCH ×2 (09:39→20:26)
[2019-09-18] MEDS: CEROVITE ADV FORMULA TAB PO SCH (09:39)
[2019-09-18] MEDS: cephALEXin 500 MG CAP PO SCH (09:39)
[2019-09-18] MEDS: LIDOCAINE 5% 1 PATCH TD SCH (09:40)
--- NOTE | 2019-09-18 12:15 | Gastroenterology Progress Note ---
Date of Service September 18, 2019 Assessment & Plan (1) Alcoholism with alcohol dependence: Discussed need for cessation (2) Cirrhosis: Known Cirrhosis with EV and has previously had ascites, now CT with mild ascites. Recent EGD, August 13 w/o cause of anemia/active bleeding and Hb continues at baseline. Would defer repeat EGD. (3) Diarrhea: Due to pt poor support, unable to obtain ride for colonoscopy, will arrange IP colonoscopy per pt preference. Will prep today, and plan for colonoscopy to r/o IBD and microscopic colitis tomorrow. Attg add: I interviewed and examined pt, reviewed chart and labs. Pt with continued symptoms, plan csocpy tomorrow. Admission and Anticipated Discharge Date Admission Date: September 11, 2019 Subjective 54 yr old female with ETOH cirrhosis with ascites, continuing to drink. Also with DM-2, neuropathy, chronic pain. Requesting IP colonoscopy for chronic diarrhea. No abd pain. No blood in BMs. Lomotil and imodium multiple times/day not effective. Review of Systems Review of Systems: ROS: Gen: + weakness but much improved since admission, No fevers, No weight loss Eyes: No eye redness, or pain, no recent vision changes Resp: No SOB, no cough Cardio: No palpitations/irregular beats, no chest pain GI: Vague c/o abdominal pain but w/o specific location reports dry heaves during her fall/laying on the floor : + burning on urination - resolved Skin: No jaundice, itching or new rashes Physical Exam Constitutional: WD/WN, vitals as above Eyes: PERRL, conjunctivae normal, anicteric sclerae ENMT: external ear and nose normal, oropharynx normal Neck: trachea midline, no thyromegaly Respiratory: normal respiratory effort, lungs clear to auscultation Cardiovascular: Rate/Rhythm: regular rhythm Extremities: no edema Gastrointestinal (Abdomen): Inspection/Auscultation: + abdomen distended (mild) and + hyperactive bowel sounds Percussion/Palpation: + abdomen tender (Left mid and lower abdomen) and abdomen soft; no guarding Neurologic: PERRL, EOMI, accommodation nl, no face palsy, no dysarthria Motor/Sensory: no tremor and no asterixis Psychiatric: A+Ox3, euthymic affect Orientation: cooperative Eye Contact: good eye contact Motor Behavior: n tremor Speech: normal rate/rhythm/volume of speech Affect: + depressed affect (slightly) Suicidal Thoughts: denies suicidal thoughts Lymphatic: no cervical or axillary lymphadenopathy Results & Data ([facility]) Vital Signs (Past 12 Hours) Vital Signs Temp Pulse Resp BP Pulse Ox 09/18/19 07:18 37.2 C 76 16 115/72 96 09/18/19 05:54 102/58 L (1) Alcoholism with alcohol dependence Complication of substance-induced condition: uncomplicated Substance use s tatus: in withdrawal Qualified Code(s): F10.230 - Alcohol dependence with withdrawal, uncomplicated
--- NOTE | 2019-09-18 14:59 | Hospitalist Progress Note ---
Date of Service September 18, 2019 Assessment & Plan (1) Fall: Fell at home while cleaning her house and was not able to get up CT cervical showed no acute fracture or subluxation. CT head showed no acute intracranial abnormality or calvarial fracture. Fall precaution PT/OT eval pain control Alcohol Abuse History of ongoing chronic alcohol abuse Pt said that she drank alcohol to help her with the pain because she cannot get narcotic Completed gabapentin and lorazepam alcohol withdrawal protocol No sign of alcohol withdrawal Continue folic acid and thiamine Continue gabapentin TID Counseling on alcohol cessation Alcohol liver cirrhosis History of esophageal varices No signs of decompensation recent EGD grade [address] Pelvis /abd showed interval development of a small amount of ascites since CT of September 11, 2019. 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 Electrolytes Imbalance Due to alcohol abuse and poor oral intake Potassium 3.7 today Stable Continue monitor electrolytes History of left hip Fracture in the past Chronic pain syndrome 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,/drug-seeking behavior, [place] drug monitoring program revealed patient was prescribed fentanyl patch, Dilaudid and oxycodone in the past by primary care physician Patient reports that she is following with a friction paint machine tender from [place] and is now off pain medications apparently Patient is not a candidate for any interventional treatment options as per pain management team in the last admission Encourage to use the LSO bracing which she reportedly has access to in the outpatient setting Poor candidate for outpatient opiate due to her prior history of opiate misuse/abuse Follow up with Dr. San/Reece regarding potential resumption of intrathecal opiate therapy Continue oxycodone 5 mg q8h Continue Gabapentin 400mg TID UTI Leukocytosis WBC 28K on admission WBC dropped from 13K to 4.2 Urine cx grew klebsiella Will complete the course of Keflex Stable Chronic diarrhea No recent used of abx Stools for Cdiff negative Continue Loperamide PRN Nogueira on board case discussed with gastro team that plan for Colonoscopy on Tuesday On clear liquid diet today for the prep bowel prep by GI today Plan for colonoscopy tomorrow NPO after midnight Restless Leg Syndrome Continue Requip DVT prophylaxis: SCDs Full Code Status Disposition Possible discharge tomorrow if colonoscopy normal Admission and Anticipated Discharge Date Admission Date: September 11, 2019 Subjective Pt was seen and examined Lying in bed with no distress Pt said that she had 4 episodes of diarrhea today so far Spoke to GI and plan for colonoscopy tomorrow Denies any chest pain, palpitation, dizziness and SOB Physical Exam Physical Exam: General- No acute distress Head- atraumatic Eyes- PERRL, EOMI, ENT- oropharynx clear Neck- supple, no JVD Lungs- clear to auscultation Heart- regular rhythm; no murmur Abdomen- normal bowel sounds, soft, nontender Extremities- no calf tenderness, small bruises around the left hip area Neuro- alert, oriented x 3; PERRL, EOMI; no facial palsy; no dysarthria Skin- warm & dry Results & Data Results & Data ([facility]) Vital Signs (Past 12 Hours) Vital Signs Temp Pulse Resp BP Pulse Ox 09/18/19 07:18 37.2 C 76 16 115/72 96 09/18/19 05:54 102/58 L (1) Fall Encounter type: initial encounter Qualified Code(s): W19.XXXA - Unspecified fall, initial encounter
[2019-09-18] MEDS: ONDANSETRON INJ 2 MG/ML 2 ML VIAL IV PRN (15:41)
[2019-09-18] MEDS ORDERED: LAVAGE SOLUTION 4000ML PO SCH ×2 (17:00→20:00)
[2019-09-18] MEDS: METOCLOPRAMIDE HCL 10 MG TABLET PO SCH ×2 (17:29→23:23)
[2019-09-18] MEDS: MIRTAZAPINE TAB 15 MG TAB PO SCH (20:26)
[2019-09-18] MEDS: ROPINIROLE HCL 0.25 MG TABLET PO SCH (20:26)
[2019-09-19] MEDS: OXYCODONE HCL IR 5 MG TAB (IMMEDIATE RELEASE) PO PRN ×3 (03:21→15:08)
[2019-09-19] MEDS: ACETAMINOPHEN 325 MG TAB PO PRN ×3 (03:23→17:36)
[2019-09-19] MEDS: METOCLOPRAMIDE HCL 10 MG TABLET PO SCH (05:54)
[2019-09-19] MEDS: CITALOPRAM 20 MG TAB PO SCH (09:13)
[2019-09-19] MEDS: PANTOprazole 40 MG TAB PO SCH ×2 (09:13→20:09)
[2019-09-19] MEDS: LIDOCAINE 5% 1 PATCH TD SCH (09:13)
[2019-09-19] MEDS: GABAPENTIN 400 MG CAP PO SCH ×3 (09:13→20:09)
[2019-09-19] MEDS: CEROVITE ADV FORMULA TAB PO SCH (09:13)
[2019-09-19] MEDS: FOLIC ACID 1 MG in SYRINGE 9.8 ML IV SCH (09:14)
[2019-09-19] MEDS: THIAMINE HCL 100 MG in SYRINGE 9 ML IV SCH (09:14)
[2019-09-19] MEDS ORDERED: ePHEDrine sulfate 50 MG/ML AMP IV PRN (11:35)
[2019-09-19] MEDS ORDERED: ATROPINE SULFATE 0.1 MG/ML 10ML SYR IV PRN (11:35)
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
--- NOTE | 2019-09-19 11:43 | Gastroenterology Progress Note ---
Date of Service September 19, 2019 Assessment & Plan (1) Alcoholism with alcohol dependence: Discussed need for cessation (2) Cirrhosis: Known Cirrhosis with EV and has previously had ascites, now CT with mild ascites. Recent EGD, August 13 w/o cause of anemia/active bleeding and Hb continues at baseline. Would defer repeat EGD. (3) Diarrhea: Due to pt poor support, unable to obtain ride for colonoscopy, will arrange IP colonoscopy per pt preference, today. Further recommendations to follow colonoscopy. Admission and Anticipated Discharge Date Admission Date: September 11, 2019 Subjective 54 yr old female with ETOH cirrhosis with ascites, EV, prior encephalopathy, admitted for fall, alcohol detox. Chronic diarrhea of several yrs duration. Imodium and Lomotil ineffective. Reports 5- 10 liquid BMs/day, typically post prandially. C-diff and GI Path (-). Colonoscopy today. Review of Systems Review of Systems: ROS: Gen: + weakness but much improved since admission, No fevers, No weight loss Eyes: No eye redness, or pain, no recent vision changes Resp: No SOB, no cough Cardio: No palpitations/irregular beats, no chest pain GI: Vague c/o abdominal pain but w/o specific location reports dry heaves during her fall/laying on the floor : + burning on urination - resolved Skin: No jaundice, itching or new rashes Physical Exam Constitutional: WD/WN, vitals as above Eyes: PERRL, conjunctivae normal, anicteric sclerae ENMT: external ear and nose normal, oropharynx normal Neck: trachea midline, no thyromegaly Respiratory: normal respiratory effort, lungs clear to auscultation Cardiovascular: Rate/Rhythm: regular rhythm Extremities: no edema Gastrointestinal (Abdomen): Inspection/Auscultation: + abdomen distended (mild) and + hyperactive bowel sounds Percussion/Palpation: + abdomen tender (Left mid and lower abdomen) and abdomen soft; no guarding Neurologic: PERRL, EOMI, accommodation nl, no face palsy, no dysarthria Motor/Sensory: no tremor and no asterixis Psychiatric: A+Ox3, euthymic affect Orientation: cooperative Eye Contact: good eye contact Motor Behavior: n tremor Speech: normal rate/rhythm/volume of speech Affect: + depressed affect (slightly) Suicidal Thoughts: denies suicidal thoughts Lymphatic: no cervical or axillary lymphadenopathy Results & Data ([facility]) Vital Signs (Past 12 Hours) Vital Signs Temp Pulse Resp BP Pulse Ox 09/19/19 11:19 37.0 C 68 16 119/82 97 09/19/19 07:22 37.0 C 74 18 115/66 96 (1) Alcoholism with alcohol dependence Complication of substance-induced condition: uncomplicated Substance use status: in withdrawal Qualified Code(s): F10.230 - Alcohol dependence with withdrawal, uncomplicated
[2019-09-19] MEDS ORDERED: LIDOCAINE HCL 2% 2 ML VIAL/AMP(20MG/ML) INFIL ONE (12:14)
[2019-09-19] MEDS ORDERED: PROPOFOL IV EMULSION 10 MG/ML 20 ML VIAL IV ONE (12:14)
--- NOTE | 2019-09-19 13:16 | GI REPORT ---
Patient Name: Siena Saldana Procedure Date: 09/19/2019 12:23 PM Date of : 1965 Admit Type: Inpatient Age: 54 Gender: Female Attending MD: Aure Choi MD Procedure: Colonoscopy Providers: Aure Choi MD Referring MD: Jeannette Simon Md Indications: Chronic diarrhea Medicines: See the Anesthesia note for documentation of the administered medications Complications: No immediate complications. Estimated Blood Loss: Estimated blood loss: none. Procedure: Pre-Anesthesia Assessment: - ASA Grade Assessment: IV - A patient with severe systemic disease that is a constant threat to life. - After reviewing the risks and benefits, the patient was deemed in satisfactory condition to undergo the procedure. After I obtained informed consent, the scope was passed under direct vision. Throughout the procedure, the patient's blood pressure, pulse, and oxygen saturations were monitored continuously. The scope was introduced through the anus and advanced to the terminal ileum. The colonoscopy was performed without difficulty. The patient tolerated the procedure well. The quality of the bowel preparation was fair. Findings: The perianal and digital rectal examinations were normal. Mild to moderate edema of the entire colon, suggestive of portal colopathy. The colon was otherwise normal, but exam was limited by prep quality. Random biopsies done from throughout the colon, and a stool aspirate done. There was mild edema of the mucosa of the ileum, but the ileum was otherwise normal. Impression: Diarrhea may be related to bacterial overgrowth, portal HTN, or continued alcohol use/pancreatic dysfunction. Biopsies done for portal colopathy. Recommendation: - Discharge patient to floor. Would consider use of PRN antidiarrheals as needed for symptom control. - Will sign off, but please reconsult as needed. Aure Choi M.D. Aure hCoi MD 09/19/2019 1:15:33 PM This report has been signed electronically. Note Initiated On: 09/19/2019 12:23 PM Number of Addenda: 0 I attest to the content of the Intraoperative Record and orders documented therein, exceptions below {[id number]}
--- NOTE | 2019-09-19 13:50 | Anesthesiology Progress Note ---
Date of Service September 19, 2019 Anesthesia Post Procedure Vital Signs Vital Signs: Temp Pulse Pulse Resp BP Pulse Ox 09/19/19 13:38 116/79 09/19/19 13:32 67 16 144/75 H 99 09/19/19 13:17 75 14 116/70 99 09/19/19 13:02 72 14 102/58 L 100 09/19/19 11:19 37.0 C 68 16 119/82 97 09/19/19 07:22 37.0 C 74 18 115/66 96 09/18/19 23:04 36.5 C 74 16 96/61 L 98 09/18/19 15:17 37.2 C 80 16 100/62 99 Pain Intensity Generalized: Pain Intensity: 9 Back: Pain Intensity: 5 Sacrum: Pain Intensity: 6 Bilateral Leg: Pain Intensity: 7 Transfer of Care Handoff Completed per policy Notes Mental Status: alert / awake / arousable and participated in evaluation Patient Amnestic to Procedure: Yes Nausea / Vomiting: adequately controlled Pain: adequately controlled Airway Patency, RR, SpO2: stable & adequate BP & HR: stable & adequate Hydration State: stable & adequate Anesthetic Complications: no major complications apparent and Pt Satisfied with anesthetic care
[2019-09-19] MEDS: LOPERAMIDE HCL 2 MG CAP PO PRN (15:08)
--- NOTE | 2019-09-19 15:20 | Hospitalist Progress Note ---
Date of Service September 19, 2019 Assessment & Plan (1) Fall: Fell at home while cleaning her house and was not able to get up CT cervical showed no acute fracture or subluxation. CT head showed no acute intracranial abnormality or calvarial fracture. Fall precaution Alcohol Abuse History of ongoing chronic alcohol abuse Pt said that she drank alcohol to help her with the pain because she cannot get narcotics Completed gabapentin and lorazepam alcohol withdrawal protocol No sign of alcohol withdrawal Continue folic acid and thiamine Continue gabapentin TID Counselled on alcohol cessation Alcohol liver cirrhosis History of esophageal varices No signs of decompensation recent EGD grade [address] Pelvis /abd showed interval development of a small amount of ascites since CT of September 11, 2019. Counselled for strict alcohol abstinence have been done on this admission gastro on board Case discussed with GI and said that pt known for Cirrhosis with EV and previously had ascites She had recent EGD in 08/03, GI would defer repeating EGD for now Started on PPI BID Recommended Liver U/S every 6 month and AFP C-scope report today unremarkable. 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 Electrolytes Imbalance Due to alcohol abuse and poor oral intake Hypokalemia resolved with repletion History of left hip Fracture in the past Chronic pain syndrome Patient reported to have underlying narcotic pain medication addiction,/drug- seeking behavior, Patient reported that she is following with a sole painter from [place] and is now off pain medications apparently Patient is not a candidate for any interventional treatment options as per pain management team in the last admission Encourage to use the LSO bracing which she reportedly has access to in the outpatient setting Poor candidate for outpatient opiate due to her prior history of opiate misuse/abuse Review of charts on [facility] ([facility]) reveal a lot of no shows to appointment, not answering home health calls/visits. PCP did record on August 01 2019 and Jul 06 2019 that patient has not been compliant with [facility] control subst protocol and has been negative for opioids, fentanyl, dilaudid and will not be prescribing any more opioids. PDMP review showed last opioid on 07/26/19 for 42 tabs of oxycodone 5mg for 7days. Prior to that was 07/05/19 for dilaudid 2mg 14tabs for 7days. Last dose of fentanyl 25mcg patch was on 06/28/19 Patient is at high risk for abuse and overdose considering alcohol use as well. Counselled patient on need to stay off opioid and try other pain management methods For chronic pain, will get Pain management consult per patient request Follow up with Dr. San/Reece regarding potential resumption of intrathecal opiate therapy Continue Gabapentin 400mg TID UTI Leukocytosis WBC 28K on admission WBC dropped from 13K to 4.2 Urine cx grew klebsiella Completed Keflex Chronic diarrhea No recent used of abx Stools for Cdiff negative Continue Loperamide PRN Had colonoscopy today. Generally unremarkable Patient to follow up with GI outpatient Restless Leg Syndrome Continue Requip DVT prophylaxis: SCDs Full Code Status Disposition Discharge tomorrow Admission and Anticipated Discharge Date Admission Date: September 11, 2019 Subjective Patient seen and examined. Reports low back pain, pain in the legs. States pain is chronic and would want pain management evaluation Denied any fevers, chills, nausea, vomiting Denied any abd pain or diarrhea today Denied any chest pain, SOB, ASHRAF, leg swelling Reports bilateral leg numbness and paresthesia Patient has just returned from Colonoscopy Physical Exam Constitutional: no acute distress Eyes: PERRL, conjunctivae normal, anicteric sclerae ENMT: external ear and nose normal, oropharynx normal Respiratory: normal respiratory effort, lungs clear to auscultation Cardiovascular: RRR, no murmur, no edema Gastrointestinal (Abdomen): normal bowel sounds, soft, nontender, no hepatosplenomegaly Musculoskeletal: Surgical scars on left knee. No tenderness Neurologic: PERRL, EOMI, accommodation nl, no face palsy, no dysarthria Psychiatric: A+Ox3, euthymic affect Results & Data Results & Data ([facility]) Vital Signs (Past 12 Hours) Vital Signs Temp Pulse Pulse Resp BP Pulse Ox 09/19/19 15:13 36.7 C 69 16 134/82 98 09/19/19 13:38 116/79 09/19/19 13:32 67 16 144/75 H 99 09/19/19 13:17 75 14 116/70 99 09/19/19 13:02 72 14 102/58 L 100 09/19/19 11:19 37.0 C 68 16 119/82 97 09/19/19 07:22 37.0 C 74 18 115/66 96 Laboratory Results Laboratory Results - last 24 hr 09/19/19 12:45 Stl C. diff Tox B Gene Pending (1) Fall Encounter type: initial encounter Qualified Code(s): W19.XXXA - Unspecified fall, initial encounter
[2019-09-19] MEDS: ONDANSETRON INJ 2 MG/ML 2 ML VIAL IV PRN ×2 (15:43→22:07)
--- NOTE | 2019-09-19 17:01 | Communication Note ---
Date of Service: September 19, 2019 Colonoscopy w/o significant abnormalities. Pt reports that diarrhea prevents her from sleep. Trial of colestid 1gm one at bedtime. With ETOH cirrhosis and hx of encephalopathy, need to be careful to prevent constipation as that may trigger encephalopathy.
[2019-09-19] MEDS: ROPINIROLE HCL 0.25 MG TABLET PO SCH (20:09)
[2019-09-19] MEDS: MIRTAZAPINE TAB 15 MG TAB PO SCH (20:09)
[2019-09-19] MEDS ORDERED: KETOROLAC TROMETHAMINE 15 MG/ML VIAL IV ONE (21:46)
[2019-09-19] MEDS ORDERED: COLESTIPOL HCL 1 GM TAB PO SCH (22:00)
[2019-09-20] MEDS: ACETAMINOPHEN 325 MG TAB PO PRN ×2 (03:56→10:14)
[2019-09-20] MEDS ORDERED: KETOROLAC TROMETHAMINE 15 MG/ML VIAL IV ONE (04:44)
[2019-09-20] MEDS: ONDANSETRON INJ 2 MG/ML 2 ML VIAL IV PRN (05:03)
[2019-09-20 06:25] LABS: BUN Creatinine Ratio 14.2 (10-20); Calcium 8.3 mg/dl (8.5-10.1); Creatinine Clr Calc Pharmacy 87.6 ml/min; Est GFR (African American) 118.9; Est GFR (Non-African American) 102.6; Potassium 3.6 mmol/L (3.5-5.1)
[2019-09-20] MEDS: CITALOPRAM 20 MG TAB PO SCH (08:01)
[2019-09-20] MEDS: CEROVITE ADV FORMULA TAB PO SCH (08:01)
[2019-09-20] MEDS: PANTOprazole 40 MG TAB PO SCH (08:01)
[2019-09-20] MEDS: FOLIC ACID 1 MG in SYRINGE 9.8 ML IV SCH (08:01)
[2019-09-20] MEDS: LIDOCAINE 5% 1 PATCH TD SCH (08:01)
[2019-09-20] MEDS: GABAPENTIN 400 MG CAP PO SCH ×2 (08:01→13:11)
[2019-09-20] MEDS: THIAMINE HCL 100 MG in SYRINGE 9 ML IV SCH (08:01)
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
[2019-09-20] MEDS: LOPERAMIDE HCL 2 MG CAP PO PRN (13:11)
--- NOTE | 2019-09-20 13:26 | Discharge Summary ---
Date of Service September 20, 2019 Admission HPI Per Admitting Provider 54-year-old female with past medical history significant for alcoholic cirrhosis, ongoing alcohol abuse, chronic pancytopenia, portal hypertension, esophageal varices, hypothyroidism, myalgia and myositis, osteopenia, history of convulsions, depression, insomnia, anxiety, history of narcotic abuse, history of GI bleed. The patient was recently in the hospital for about 3 weeks for hematemesis, alcohol abuse, discharged to home with home health services. The patient says she fell yesterday and she could not get up and today she called the neighbor, the neighbor called the doubler operator and the doubler operator force opened the house and she was found all over covered with feces. The patient also vomited and she was brought in here and she was cleaned up. The patient says she is still drinking. She drank about 7 beers yesterday. She was feeling shaky, tachycardic. Her white count is 18,000. Total creatinine kinase 413. UA is positive. Her imaging studies are unremarkable. The patient says she has a son, but is not in good terms with her son. She has a friend who helps her to keep the appointments and go to grocery stores. She is not eating much, but she has home delivered alcohol. Denies any fever, chills. She is not feeling any palpitations. Denies any chest pain, no shortness of breath, no cough. She was nauseous. No headache, no blurred visions, no runny nose, no sore throat. She has some mild abdominal discomfort. She has diarrhea, she says it looked black to her. Urine is somewhat concentrated, has some burning micturition. She walks with the help of walker at home. Admission Exam Per Admitting Provider GENERAL: The patient is thin and frail, not in acute distress. VITAL SIGNS: Temperature 36.5, pulse 120s and 130s, blood pressure 145/85, respiratory rate 24, oxygen 99% on room air. HEENT: No pallor, no icterus. NECK: No JVD, no neck masses. CARDIOVASCULAR: S1, S2 heard. Tachycardia. No murmur, no gallop. RESPIRATORY SYSTEM: Normal AP diameter. No accessory muscle use. No wheezing, no crackles. ABDOMEN: Soft, bowel sounds present. Mild abdominal diffuse discomfort. No guarding. No rigidity. No distention. CENTRAL NERVOUS SYSTEM: Alert and awake and oriented. Obeys commands. Speech is clear. Moves extremities. EXTREMITIES: Bilateral lower extremity are slightly erythematous and warm to palpation. She has some skin peeling in the back of the legs. Principal Diagnosis Fall Alcohol abuse Chronic diarrhea Urinary tract infection Discharge Exam Constitutional no acute distress Eyes PERRL, conjunctivae normal, anicteric sclerae ENMT external ear and nose normal, oropharynx normal Respiratory normal respiratory effort, lungs clear to auscultation Cardiovascular RRR, no murmur, no edema Gastrointestinal (Abdomen) normal bowel sounds, soft, nontender, no hepatosplenomegaly Neurologic PERRL, EOMI, accommodation nl, no face palsy, no dysarthria Psychiatric A+Ox3, euthymic affect Discharge Data Allergies Allergy/AdvReac Type Severity Reaction Status Date / Time diphenhydramine Allergy Severe seizures/it Verified 09/19/19 11:21 mya/tremo rs bupropion Allergy Intermediate Palpitation Verified 09/19/19 11:21 s clarithromycin Allergy Intermediate HIVES Verified 09/19/19 11:21 aspirin Allergy Mild hives/ringing Verified 09/19/19 11:21 of ears oxaprozin Allergy Mild nausea/vomi Verified 09/19/19 11:21 ting salicylates Allergy Mild ringing in Verified 09/19/19 11:21 ears/hives Consultations 09/11/19 20:13 ED Decision to Admit Stat 09/11/19 22:25 Consult Case Management - Discharge Planning Routine 09/14/19 07:43 Consult Gastroenterology Routine 09/19/19 14:58 Consult Pain Management Routine Procedures Performed Operation Date: 09/19/19 16:00 Actual Procedures p Colonoscopy Biopsy Cytology - Irphan E Gaslightwala Ordered Studies 09/11/19 17:20 CT abd pelvis wo con Stat CT cervical spine wo con Stat CT chest wo con Stat CT head/brain wo con Stat 09/13/19 22:56 CT abd pelvis IV con only Urgent CT head/brain wo con Urgent Hospital Course (1) Fall: Fell at home while cleaning her house and was not able to get up CT cervical showed no acute fracture or subluxation. CT head showed no acute intracranial abnormality or calvarial fracture. Fall likely due to alcohol abuse Alcohol Abuse History of ongoing chronic alcohol abuse Pt said that she drank alcohol to help her with the pain because she cannot get narcotics Completed gabapentin and lorazepam alcohol withdrawal protocol Continue vitamin supplementation. Counselled on alcohol cessation Alcohol liver cirrhosis History of esophageal varices No signs of decompensation recent EGD grade [address] Pelvis /abd showed interval development of a small amount of ascites since CT of September 11, 2019. Counselled for strict alcohol abstinence have been done on this admission Case discussed with GI and said that pt known for Cirrhosis with EV and previously had ascites She had recent EGD in 08/03, GI would defer repeating EGD for now Started on PPI BID Recommended Liver U/S every 6 month and AFP C-scope done on 09/19/19 unremarkable. 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 abuse Electrolytes Imbalance Due to alcohol abuse and poor oral intake Hypokalemia resolved with repletion History of left hip Fracture in the past Chronic pain syndrome Patient reported to have underlying narcotic pain medication addiction,/drug- seeking behavior, Patient reported that she is following with a paint sprayer sandblaster from [place] and is now off pain medications apparently Patient is not a candidate for any interventional treatment options as per pain management team in the last admission Encourage to use the LSO bracing which she reportedly has access to in the outpatient setting Poor candidate for outpatient opiate due to her prior history of opiate misuse/abuse Review of charts on [place] [facility]) reveal a lot of no shows to appointment, not answering home health calls/visits. PCP did record on August 01 2019 and Jul 06 2019 that patient has not been compliant with [employer] control subst oliver col and has been negative for opioids, fentanyl, dilaudid and will not be prescribing any more opioids. PDMP review showed last opioid on 07/26/19 for 42 tabs of oxycodone 5mg for 7days. Prior to that was 07/05/19 for dilaudid 2mg 14tabs for 7days. Last dose of fentanyl 25mcg patch was on 06/28/19 Patient is at high risk for abuse and overdose considering alcohol use as well. Counselled patient on need to stay off opioid and try other pain management methods For chronic pain, Pain management evaluated and had no new recommendations Follow up with Dr. San/Reece regarding potential resumption of intrathecal opiate therapy Continue Gabapentin 400mg TID, increased from 300mg TID Follow up ortho outpatient for peripatellar tenderness over hardware (chronic) from prior surgery UTI Leukocytosis WBC 28K on admission Leukocytosis resolved Urine cx grew klebsiella Completed Keflex Chronic diarrhea No recent used of abx Stools for Cdiff negative Continue Loperamide PRN. Patient advised to be cautious with loperamide to avoid constipation due to risk of hepatic encephalopathy with that Had colonoscopy 09/19/19. Generally unremarkable Patient to follow up with GI outpatient Restless Leg Syndrome Continue Requip Total Time Total Time Spent Total Time Spent (In Minutes): 35 Total Time Includes: Examination of the Patient, Discharge Planning, Medication Reconciliation and Communication With Other Providers Discharge Plan Discharge Items Patient Disposition: Home - Home Health Services Reason For Visit: FALL Discharge Diagnosis: Fall Alcohol abuse Chronic diarrhea Urinary tract infection Activity: Resume your previous activity Non-emergency contact: Primary Care Provider and Electronic Funds Transfer Coordinator Call non-emergency contact if: you have any medication questions Follow-up/Referrals: Pita Borges MD [Primary Care Provider] - 09/26/19 11:40 am (09/26/2019 11:40 AM Provider Pita Wolfe MD Department Internal Medicine [facility] ) Diet: Heart Healthy and Low Fiber Addtl Attending Provider Instructions: [place]. You came to the hospital complaining of fall You were managed for alcoholism. You were also seen by Electronic Funds Transfer Coordinator and had a colonoscopy You also report chronic pain. Due to your medical problems, including alcoholism and history it is important to avoid avoid opioids with your pain management. Please follow up with Dr San/Reece that you have been following for pain management. It is also important that you follow up with Gastroenterology outpatient. Please use medications as prescribed for your diarrhea. However, you need to be careful with loperamide to avoid constipation as this can put you at risk of hepatic encephalopathy as discussed since you have liver cirrhosis. Please do not use more than 2000mg of acetaminophen or tylenol as needed for pain within 24h. We had extensive discussion about your alcohol abuse. It is very important that you stay off this as you are already having a lot of medical complications as a result including your liver cirrhosis. Please take medications as prescribed and follow up with your doctors. It was a pleasure taking care of you. Pending Studies at Discharge: No Stand-Alone Forms: My [facility] [place], Smoking Cessation Medications and DC Order Prescriptions: New colestipol [Colestid] 1 gram Tablet 1 g PO HS@2200 Qty: 30 RF: 0 pantoprazole 40 mg Tablet,Delayed Release (Dr/Ec) 40 mg PO BID 30 Days Qty: 60 RF: 0 gabapentin 400 mg Capsule 400 mg PO TID 30 Days Qty: 90 RF: 0 Continued citalopram [Celexa] 10 mg Tablet 10 mg PO QAM RF: 0 hydroxyzine HCl 25 mg Tablet 25 - 50 mg PO BID PRN (Reason: Anxiety) RF: 0 mirtazapine 15 mg Tablet 15 mg PO HS RF: 0 ropinirole 0.25 mg Tablet 0.25 mg PO HS Qty: 30 RF: 0 loperamide 2 mg capsule 2 mg PO Q8H PRN (Reason: Diarrhea) RF: 0 ondansetron HCl [Zofran] 4 mg tablet 4 mg PO Q12H PRN (Reason: Nausea And Vomiting) RF: 0 Centrum Silver 0.4-300-250 mg-mcg-mcg Tablet 1 tab PO QAM 30 Days Qty: 0 RF: 0 Discontinued gabapentin 300 mg Capsule 300 mg PO TID 30 Days Qty: 90 RF: 0 Discharge Orders: Discharge Order (Routine); Ordered 09/20/19 Ordered By: Jeannette Simon Admission Data Admit Date/Time: 09/11/19 21:18 Attending Provider: Jeannette Simon I. Admit Provider: Taiwo Aguilera Primary Care Provider: Pita Borges Other Providers: Taiwo Aguilera ; Kevin Coy ; Ainsley Munoz ; Chandler Baez Other Interventions: Discharge Summary Assessment (RN) Last Done: 09/20/19 14:00 DC Date/Time DO NOT enter until pt leaves facility: 09/20/19 14:37
--- NOTE | 2019-09-22 18:31 | Coding Query ---
MALNUTRITION To promote full compliance with coding requirements relating to patient care, physician participation is requested in all cases of facility planner uncertainty. Please assist us with the question(s) below: Please place an X within the parenthesis (x). If other, please document: "Malnutrition" is documented in this record beginning on the H&P. If possible, please check the box that provides a more specific diagnosis: ( ) Mild malnutrition (x ) Moderate malnutrition ( ) Severe malnutrition ( ) Protein malnutrition (kwashiorkor) ( ) Severe protein calorie malnutrition ( ) Protein calorie malnutrition, unspecified ( ) Other (please specify): Thank you Katherin CAGE
== END 2019-09-20 14:37 | disposition home health service (06) | DRG 392 ==
LOC: ED 17:04 → 2S 21:18 → SUATTDRO 21:18 → 2S 22:13 → 3N 09-14 19:15

== ENCOUNTER 2019-10-19 12:54 | Inpatient (IN) ==
[2019-10-19] MEDS ORDERED: SODIUM CHLORIDE 0.9% 1000ML 2,000 ML IV ONE (13:47)
[2019-10-19] MEDS ORDERED: PANTOprazole 80 MG in DEXTROSE 5% 100 ML IV ONE (13:47)
[2019-10-19] MEDS ORDERED: FOLIC ACID 1 MG in SYRINGE 9.8 ML IV STA (13:47)
[2019-10-19] MEDS ORDERED: THIAMINE HCL 200 MG in SODIUM CHLORIDE 0.9% 50 ML IV STA (13:47)
[2019-10-19] MEDS ORDERED: PANTOPRAZOLE BOLUS/DRIP 1 EA IV STA (13:47)
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
[2019-10-19 14:21] LABS: Basophils # (auto) 0.04 K/uL (0-0.2); Basophils % (auto) 0.5 %; Eosinophils # (auto) 0.02 K/uL (0-0.5); Eosinophils % (auto) 0.3 %; Hematocrit (blood only) 38.4 % (37-47); Hemoglobin 12.1 g/dL (12.0-16.0); Immature Granulocytes # (auto) 0.01 K/uL (0.00-0.02); Immature Granulocytes % (auto) 0.1 %; Lymphocytes # (auto) 1.19 K/uL (1.2-3.4); Lymphocytes % (auto) 14.9 %; Mean Corpuscular Hemoglobin 24.4 pg (25-34); Mean Corpuscular Hgb Conc 31.5 g/dL (32-36); Mean Corpuscular Volume 77.6 fL (80-100); Mean Platelet Volume 9.5 fL (7.4-10.4); Monocytes # (auto) 0.49 K/uL (0.11-0.59); Monocytes % (auto) 6.1 %; Neutrophils # (auto) 6.22 K/uL (1.4-6.5); Neutrophils % (auto) 78.1 %; Platelet Count 218 K/uL (130-400); RDW Coefficient of Variation 19.7 % (11.5-14.5); RDW Standard Deviation 55.4 fL (36.4-46.3); Red Blood Count 4.95 M/uL (4.2-5.4); White Blood Count 7.97 K/uL (4.8-10.8)
[2019-10-19] MEDS: PANTOprazole 40 MG in DEXTROSE 5% 100 ML IV SCH ×3 (14:36→22:22)
[2019-10-19 14:42] LABS: Appearance Urine Clear (Clear); Bilirubin Urine Negative (Negative); Blood Urine Negative (Negative); Color Urine Yellow; Glucose Urine UA Negative (Negative); Ketones Urine Negative (Negative); Leukocyte Esterase Urine Trace (Negative); Nitrite Urine Negative (Negative); Protein Urine Negative (Negative); Specific Gravity Urine 1.005 (1.000-1.030); Urobilinogen Urine Negative (Negative)
[2019-10-19 15:13] LABS: RBC Urine 0-4 /hpf (0-4)
[2019-10-19 15:14] LABS: Bacteria Urine Negative (Negative); Hyaline Casts Urine 0-5 /lpf (0-5)
[2019-10-19 15:15] LABS: Albumin Globulin Ratio 0.9 (0.9-2); BUN Creatinine Ratio 9.2 (10-20); Bilirubin,Total 0.9 mg/dl (0.2-1); Calcium 8.8 mg/dl (8.5-10.1); Creatinine Clr Calc Pharmacy 107.9 ml/min; Est GFR (African American) 123.9; Est GFR (Non-African American) 106.9; Globulin 4.4 gm/dl (2.5-4.0); Total Protein 8.4 gm/dl (6.4-8.2)
--- NOTE | 2019-10-19 16:37 | CT Scan Report ---
CT head/brain wo con CLINICAL HISTORY: 54 years-old Female with fall. Acute head injury status post fall TECHNIQUE: Multiple axial CT images of the head were obtained without contrast. A dose lowering tech nique was utilized adhering to the principles of ALARA. CT DOSE: 537.48 mGy.cm COMPARISON: Head CT 09/13/2019 FINDINGS: No acute intracranial hemorrhage, midline shift, intracranial mass, hydrocephalus, territorial ischem ia or abnormal extra-axial collection. The calvarium is intact. The paranasal sinuses, mastoid air cells, and middle ear cavities are clear . IMPRESSION: No acute intracranial abnormality or calvarial fracture. ACT 112: Negative or not required by law. The above report was generated using voice recognition software. It may contain grammatical, syntax o r spelling errors. Electronically signed by: Brennon Matos M.D. 10/19/2019 4:36 PM
--- NOTE | 2019-10-19 16:53 | CT Scan Report ---
CT SCAN OF THE ABDOMEN AND PELVIS WITHOUT CONTRAST CLINICAL HISTORY: Trauma. Back pain. Abdominal pain. COMPARISON STUDY: 09/14/2019 TECHNIQUE: CT scan of the abdomen and pelvis was performed from the lung bases to the proximal femurs . Images are reviewed in the axial, sagittal, and coronal planes. IV contrast was not administered fo r this examination. A dose lowering technique was utilized adhering to the principles of ALARA. CT DOSE: 412.70 mGy.cm FINDINGS: Lower chest: There are dependent atelectatic changes. Liver: There is hepatic steatosis. No focal masses are visualized in this noncontrast study Gallbladder: Surgically absent Spleen: Normal in size and attenuation. Pancreas: Unremarkable. Adrenal glands: Unremarkable. Kidneys: There is a nonobstructing 4 mm lower pole left renal calculus. No ureteral or bladder calcul i are visualized. Bowel: There are no transition zones to indicate bowel obstruction. There are postsurgical changes of a presumed prior gastric bypass. There are postsurgical changes present within the right colon. Ther e is colonic interposition. By history the appendix is surgically absent. There is no pneumatosis. Th ere is borderline sigmoid and descending colon wall thickening. Peritoneum: There is no intraperitoneal free air or abdominal ascites. Vasculature: The abdominal aorta is normal in course and caliber. Adenopathy: None. Pelvic viscera: The bladder, and pelvic viscera are unremarkable. Skeletal structures: There is a right anterior abdominal wall stimulator device. Electrodes terminate within the soft tissues of the right back superficial to the right paraspinal muscles. There are pos tsurgical changes present within the left hip. L2, L3, and L4 superior endplate compression deformiti es remain similar to the prior study. There is an old sacral fracture. IMPRESSION: 1. Study limited by the lack of intravenous and oral contrast 2. Left-sided nephrolithiasis. No hydronephrosis. No ureteral calculi identified 3. Postsurgical changes of a gastric bypass 4. No evidence of bowel obstruction. No evidence of free air. Borderline minimal sigmoid and left col onic wall thickening 5. Hepatic steatosis 6. Interval resolution of the previously identified ascites ACT 112: Negative or not required by law. Electronically signed by: Yahir Valencia M.D. 10/19/2019 4:52 PM
--- NOTE | 2019-10-19 17:22 | History & Physical Report ---
Date of Service October 19, 2019 Assessment & Plan (1) Alcohol withdrawal: This is a 54-year-old female who has significant past medical history of chronic alcohol abuse, end-stage liver disease, esophageal varices, portal hypertension, hypothyroidism, peripheral neuropathy, history of convulsions, depression, anxiety, RLS, history of narcotic abuse who presents to ED secondary to ill feeling x5 days. Admit to med tele ETOH withdrawal protocol with librium taper and IV ativan Give Banana bag x 1 then NSS 80cc/hr obtain K, Mag, Phos levels - replete if low daily folic acid, thiamine last drink ~ 24 hours ago seizure precautions - pt reports seizure like activity last night in shower after falling and hitting head and not recalling events (2) Nausea & vomiting: (3) Diarrhea: pt reports 4-5 days of N/V/D and unable to tolerate PO she is afebrile and WBC 7.97k CT A/P reveals mild sigmoid inflammatory changes, but lack of contrast limit study obtain stool culture, cdiff (recent antibiotic for UTI), monitor stools consider repeat CT with contrast if diarrhea persists or if pt spikes fever/leucocytosis abdominal exam benign at this time - no current indication for antibiotics hold loperamide until Cdiff results (4) Increased anion gap metabolic acidosis: in setting of ETOH use/poor po intake obtain K, mag, phos levels (5) Anemia: H&H currently stable, but likely hemoconcentrated in setting of dehydration due to alcohol use Baseline hemoglobin 8-9, repeat H&H @ 2200 Microcytic, microchromic - last iron studies obtained 06/2018 obtain iron studies in a.m. monitor for s/sx of hemetemesis and FOBT GI consulted due to pt reporting hematemesis - not observed in ED continue PPI gtt (6) Alcoholic cirrhosis: Secondary to chronic alcohol abuse History of gastric bypass No signs of hepatic encephalopathy CT scan shows resolution of ascites Monitor (7) Neuropathy: Continue gabapentin 400 mg 3 times daily Patient with bilateral extreme peripheral neuropathy likely in setting of chronic alcohol abuse (8) Depression with anxiety: Continue citalopram (9) DVT prophylaxis: SCD/TEDS Chemical prophylaxis contraindicated in setting of concern for possible GI bleed Disposition: Admit to med telemetry Follow-up: PCP Dr. Cameron Wolfe upon discharge Patient was seen and examined in collaboration with Dr. Vanegas, please see addendum History of Present Illness Chief Complaint: Ill feeling x 5 days. Primary Care Provider: Katharine Wolfe MD This is a 54-year-old female who has significant past medical history of chronic alcohol abuse, end-stage liver disease, esophageal varices, portal hypertension, hypothyroidism, peripheral neuropathy, history of convulsions, depression, anxiety, RLS, history of narcotic abuse who presents to ED secondary to ill feeling x5 days. She reports ever since Tuesday having difficulty tolerating anything p.o. secondary to nausea vomiting and diarrhea. She reports several episodes of coffee-ground emesis last evening, approximately 12 as well as several episodes of diarrhea unsure quantity. She has not had an episode of diarrhea while in ED. She reports her last alcoholic drink was last evening. She called into her [facility] behavioral health case manager who urged her to seek ED evaluation secondary to last alcoholic beverage approximately 24 hours ago and inability to tolerate p.o. due to concern for development of withdrawal. She has had multiple admissions secondary to chronic alcohol abuse. She states she did speak with her behavioral health case manager regarding possibility of disability rehab. She denies any other recent illness, fever, chills, sweats, lightheadedness, dizziness, syncope, chest pain, shortness breath, palpitations, dysuria, increased urgency or frequency with urination, melena, magnesium. She does admit last evening in the shower she began to feel shaky, fell and hit her head and believes she may have had a seizure. She further admits to having epigastric abdominal pain, pain is nonradiating, described as "ache" and feels similar to prior gastritis episodes in the past. She feels likely hurting secondary to retching. She currently lives by herself but does have close contact with a friend. No exposure to COVID-19 denies any loss of taste or smell. Of significance she was last admitted 09/10 to 09/19 secondary to fall and unable to get up. She had no acute fracture but fall likely secondary to alcohol use. Completed gabapentin and alcohol withdrawal protocol. Seen and evaluated by GI and underwent colonoscopy on 09/18 which is unremarkable. Recent EGD 08/03. Started on PPI twice daily. Hospital course was complicated with Klebsiella UTI treated with upper antibiotics. Upon discharge she was unable to sisal picker prescriptions and therefore she has not been taking her Protonix, newly prescribed colestipol or Requip. She states that she also has only been taking 100 mg of gabapentin 3 times daily. In ED patient remained hemodynamically stable. She was mildly tachycardic. Notable lab abnormalities include H&H 12.1 and 38.4 with microcytic indices, platelet 218, anion gap 14, BUN 5, creatinine 1.53, ethyl alcohol 288.7. Head CT was negative for any acute cardiopulmonary abnormality. CT scan abdomen pelvis revealed interval resolution of previously identified ascites, left-sided nephrolithiasis and borderline minimal sigmoid and left colonic wall thickening. However no oral or IV contrast causes study to be limited. In ED she was started on IV Protonix bolus and drip. She also received thiamine and folic acid IV along with IVF. Allergies Allergy/AdvReac Type Severity Reaction Status Date / Time diphenhydramine Allergy Severe seizures/it Verified 10/19/19 15:27 mya/tremo rs bupropion Allergy Intermediate Palpitation Verified 10/19/19 15:27 s clarithromycin Allergy Intermediate HIVES Verified 10/19/19 15:27 aspirin Allergy Mild hives/ringing Verified 10/19/19 15:27 of ears oxaprozin Allergy Mild nausea/vomi Verified 10/19/19 15:27 ting salicylates Allergy Mild ringing in Verified 10/19/19 15:27 ears/hives Home Medications Home Medications Medication Instructions Recorded Confirmed Type citalopram [Celexa] 20 mg PO DAILY 08/08/18 10/19/19 History loperamide 2 mg PO Q8H PRN 09/11/19 10/19/19 History Centrum Silver 1 tab PO QAM 30 Days #0 tab 09/20/19 10/19/19 Rx colestipol 1 g PO HS 10/19/19 10/19/19 History gabapentin 400 mg PO TID 10/19/19 10/19/19 History magnesium oxide 400 mg PO DAILY 10/19/19 10/19/19 History mirtazapine 15 mg PO HS 10/19/19 10/19/19 History pantoprazole 40 mg PO DAILY 10/19/19 10/19/19 History potassium chloride 40 meq PO TID 10/19/19 10/19/19 History ropinirole [Requip] 0.25 mg PO HS 10/19/19 10/19/19 History Past Med/Surg History Medical History (Updated 10/19/19 @ 17:43 by Sandra Krishna PA-C) Alcohol abuse hx of Anxiety Anxiety Cirrhosis Degenerative disc disease Esophageal varices with banding Factitious disorder Fibromyalgia Lumbago Multiple sclerosis Opiate addiction HX OF AND NO PROBLEMS NOW Opiate misuse Pancreatitis Pelvis fracture HX OF CRUSHED PELVIS - FROM ACCIDENT FALLING INTO DUMPSTER CHRONIC PAIN Presence of intrathecal pump PUMP IN PLACE AND NOT WORKING IT WAS TURNED OFF!!! containing morphine 0.189mg/day and fentanyl 2.52mcg/day miminimal rate per pt "it doesnt work I haven't been able to afford the medication for 3 years now"?? Seizures LAST ONE SEVERAL MONTHS AGO -- TAKES GABAPENTIN FOLLOW WITH DOCTOR KATHARINE WOLFE FROM [place] Stenosis of surgical anastomosis site of digestive tract Surgical History History of cholecystectomy History of colonoscopy History of esophagogastroduodenoscopy (EGD) History of open reduction and internal fixation (ORIF) procedure left arm/left leg--hardware in place History of Jeffy-en-Y gastric bypass History of tooth extraction all teeth removed History of total hysterectomy with bilateral salpingo-oophorectomy (BSO) Hx of laparoscopy FOR ENDOMETRIOSIS Hx of resection of small bowel DUE TO ENDOMETRIOSIS Family History Other Aneurysm Cancer No family history of adverse response to anesthesia Stroke Social History Smoking Status: Former smoker Second Hand Exposure: No; Hx Alcohol Use: Yes Alcohol type: beer, wine and hard liquor Hx Substance Use: No Preferred Language: Luxembourger Communication Ability: Effective 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: No Beliefs That Will Affect Care: None marital status: Current Living Situation: Alone How many Children do You have: 3 Feels Safe at Home: Yes Review of Systems Review of Systems: All systems reviewed & are unremarkable except as noted in HPI & below Physical Exam Physical Exam: Constitutional: Chronically ill-appearing female, sitting in bed, tremors of bilateral upper extremities with movement, vitals as above, NAD, pleasant, conversing easily Head: Normocephalic, Atraumatic Eyes: PERRL, conjunctivae normal, anicteric sclerae ENMT: external ear and nose normal, oropharynx normal, dry mucous membranes Neck: trachea midline, no thyromegaly normal visual inspection Respiratory: normal respiratory effort, lungs clear to auscultation, no wheeze, rales, rhonchi. Normal insp/exp effort, no accessory muscle use Cardiovascular: Tachycardic rate, regular rhythm, no murmur, no edema Vessels: no JVD or carotid bruit Chest: normal inspection of chest Abdomen: normal bowel sounds, soft, nontender, no hepatosplenomegaly Musculoskeletal: no cyanosis or clubbing, extremities motor strength 5/5 Skin: no rashes, warm and dry moderate turgor Neurologic: PERRL, EOMI, accommodation nl, no face palsy, no dysarthria CN's II-XI intact bilaterally and moves all extremities Psychiatric: A+Ox3, euthymic affect Lymphatic: no cervical or axillary lymphadenopathy : deferred Results & Data Results & Data ([facility]) Vital Signs (Past 12 Hours) Vital Signs Temp Pulse Resp BP Pulse Ox 10/19/19 16:40 100 H 10/19/19 16:00 132/87 10/19/19 15:31 95 10/19/19 15:30 123/87 95 10/19/19 15:01 95 10/19/19 15:00 129/94 95 10/19/19 14:43 120/95 95 10/19/19 14:31 22 133/83 96 10/19/19 14:05 97 10/19/19 13:05 37.1 C 100 H 18 136/100 95 Laboratory Results Short CBC 10/19/19 Range/Units 14:13 WBC 7.97 (4.8-10.8) K/uL Hgb 12.1 (12.0-16.0) g/dL Hct 38.4 (37-47) % Plt Count 218 (130-400) K/uL BMP 10/19/19 14:13 Sodium 137 Potassium Chloride 103 Carbon Dioxide 20 L BUN 5 L Creatinine 0.53 L Glucose 94 Calcium 8.8 Liver Function 10/19/19 Range/Units 14:13 Total Bilirubin 0.9 (0.2-1) mg/dl AST (15-37) U/L ALT 50 (12-78) U/L Alkaline Phosphatase 139 H (45-117) U/L Albumin 4.0 (3.4-5.0) gm/dl Urine 10/19/19 Range/Units 14:20 Urine Color Yellow Urine Appearance Clear (Clear) Urine pH 6.0 (4.5-7.5) Ur Specific [place] 1.005 (1.000-1.030) Urine Protein Negative (Negative) Urine Glucose (UA) Negative (Negative) Diagnostic Findings Head CT: FINDINGS: No acute intracranial hemorrhage, midline shift, intracranial mass, hydrocephalus, territorial ischemia or abnormal extra-axial collection. The calvarium is intact. The paranasal sinuses, mastoid air cells, and middle ear cavities are clear. IMPRESSION: No acute intracranial abnormality or calvarial fracture. CT A/P: IMPRESSION: 1. Study limited by the lack of intravenous and oral contrast 2. Left-sided nephrolithiasis. No hydronephrosis. No ureteral calculi identified 3. Postsurgical changes of a gastric bypass 4. No evidence of bowel obstruction. No evidence of free air. Borderline minimal sigmoid and left colonic wall thickening 5. Hepatic steatosis 6. Interval resolution of the previously identified ascites Code Status & VTE Plan Code Status Full Code VTE Prophylaxis Plan VTE Prophylaxis will be ordered: Yes Reason for no VTE drug order: Contraindicated Supervising Physician Co-Signing Physician Notes I have seen and examined the patient Siena Showers with physician blood donor unit assistant and on exam On Physical Exam General: speaking in full sentences Heart: mild tachycardia Lung: clear to auscultation Back: able to sit up with some assistance Abdomen: soft Extremities no edema Assessment and Plan -This is a patient with multiple admissions from alcohol complications. Here today because of vomiting and diarrhea since Tuesday10/22/2019. She has an outpatient behavioral health case manager and patient expressed to behavioral health case manager of possible alcohol withdrawal and was told to come to emergency room. Despite vomiting at home, patient has positive alcohol levels in the ED labs -alcohol withdrawal protocol with scheduled Librium and prn Ativan. monitor on telemetry. Prn IV metoprolol 5 mg every 6 hours as needed if heart rates above 110 bpm -gabapentin for neuropathic pain -give clear liquid diet for now -give banana bag on 10/19/2019, give daily thiamine and folic acid, vitamins. Filament Cutter consult -continue IV pantoprazole. Patient has had reported hematemesis on previous hospital admission for which generally did not appear to be overt GI bleeding before. Her baseline hemoglobin is generally 8 to 9s. Her hemoglobin in this admission is 12 which is similar to previous day 1 admission day likely as a result of hemo-concentration with vomiting and GI losses of bodily fluids. Expect that when patient has received adequate hydration that hemoglobin will again around the baseline. Will have gastroenterology consult assess the patient in case another true acute blood loss -send FOBT, stool culture, c.difficile. start prn loperamide for diarrhea. Borderline minimal sigmoid and left colonic wall thickening on admission CT abdomen but study limited by lack of contrast -Avoid NSAIDs, -PT/OT evaluations -SCDs for DVT prophylaxis -agree with other assessment and plans of other health conditions as documented by physician blood donor unit assistant -My colleague hospitalist Dr. Cadena will be following the patient starting on 10/20/2019
[2019-10-19] MEDS ORDERED: chlordiazePOXIDE ALCOHOL WITHDRAWL 25MG PO STA (19:18)
[2019-10-19] MEDS ORDERED: ATIVAN IV ALCOHOL WITHDRAWL IV PRN (19:18)
[2019-10-19] MEDS ORDERED: MAGNESIUM HYDROXIDE SUSP 30 ML UDC PO PRN (19:24)
[2019-10-19] MEDS ORDERED: ALUMINUM/MAGNESIUM SUSP 30 ML UDC PO PRN (19:24)
[2019-10-19] MEDS ORDERED: LORazepam 3 MG/6 ML VIAL IV PRN (19:26)
[2019-10-19] MEDS ORDERED: METOPROLOL TARTRATE 1 MG/ML VIAL IV PRN (19:27)
[2019-10-19] MEDS ORDERED: MULTI-VITAMIN INFUSION 10 ML, THIAMINE HCL 100 MG, FOLIC ACID 1 MG in SODIUM CHLORIDE 0... IV ONE (19:30)
[2019-10-19] MEDS: LORazepam 1 MG/2 ML VIAL IV PRN ×2 (19:58→22:33)
[2019-10-19] MEDS: FOLIC ACID 1 MG TAB PO SCH (20:25)
[2019-10-19] MEDS: THIAMINE HCL 100 MG TAB PO SCH (20:26)
[2019-10-19] MEDS: ROPINIROLE HCL 0.25 MG TABLET PO SCH (20:26)
[2019-10-19] MEDS: GABAPENTIN 400 MG CAP PO SCH (20:26)
[2019-10-19] MEDS: MIRTAZAPINE TAB 15 MG TAB PO SCH (20:27)
[2019-10-19] MEDS: COLESTIPOL HCL 1 GM TAB PO SCH (20:27)
[2019-10-19] MEDS ORDERED: SODIUM CHLORIDE 0.9% 1000ML 1,000 ML IV SCH (21:00)
[2019-10-19] MEDS: chlordiazePOXIDE HCl 25 MG CAP PO SCH (21:01)
[2019-10-19 22:14] LABS: Basophils # (auto) 0.06 K/uL (0-0.2); Basophils % (auto) 1.3 %; Eosinophils # (auto) 0.05 K/uL (0-0.5); Hematocrit (blood only) 31.2 % (37-47); Hemoglobin 9.6 g/dL (12.0-16.0); Lymphocytes # (auto) 1.28 K/uL (1.2-3.4); Lymphocytes % (auto) 26.7 %; Mean Corpuscular Hemoglobin 24.1 pg (25-34); Mean Corpuscular Hgb Conc 30.8 g/dL (32-36); Mean Corpuscular Volume 78.2 fL (80-100); Mean Platelet Volume 9.3 fL (7.4-10.4); Monocytes # (auto) 0.53 K/uL (0.11-0.59); Neutrophils # (auto) 2.88 K/uL (1.4-6.5); Platelet Count 145 K/uL (130-400); RDW Coefficient of Variation 19.8 % (11.5-14.5); RDW Standard Deviation 57.4 fL (36.4-46.3); Red Blood Count 3.99 M/uL (4.2-5.4)
[2019-10-19 22:21] LABS: Potassium 3.3 mmol/L (3.5-5.1)
[2019-10-19 22:26] LABS: Magnesium 1.8 mg/dl (1.8-2.4)
[2019-10-20] MEDS: chlordiazePOXIDE HCl 25 MG CAP PO SCH ×3 (01:01→13:11)
[2019-10-20] MEDS: PANTOprazole 40 MG in DEXTROSE 5% 100 ML IV SCH ×5 (03:13→22:44)
[2019-10-20] MEDS: LORazepam 1 MG/2 ML VIAL IV PRN ×3 (05:14→22:53)
[2019-10-20] MEDS: POTASSIUM CHLORIDE / WTR 10 MEQ/100 ML PLCT IV SCH ×2 (07:53→10:56)
[2019-10-20] MEDS: MULTIVITAMIN TAB PO SCH (07:58)
[2019-10-20] MEDS: GABAPENTIN 400 MG CAP PO SCH ×3 (07:58→21:41)
[2019-10-20] MEDS: THIAMINE HCL 100 MG TAB PO SCH (07:58)
[2019-10-20] MEDS: MAGNESIUM OXIDE 400 MG TAB PO SCH (07:58)
[2019-10-20] MEDS: FOLIC ACID 1 MG TAB PO SCH (07:58)
[2019-10-20] MEDS: CITALOPRAM 20 MG TAB PO SCH (07:59)
[2019-10-20 08:24] LABS: Hematocrit (blood only) 31.8 % (37-47); Hemoglobin 9.8 g/dL (12.0-16.0); Mean Corpuscular Hemoglobin 24.3 pg (25-34); Mean Corpuscular Hgb Conc 30.8 g/dL (32-36); Mean Corpuscular Volume 78.7 fL (80-100); RDW Coefficient of Variation 19.5 % (11.5-14.5); RDW Standard Deviation 56.2 fL (36.4-46.3); Red Blood Count 4.04 M/uL (4.2-5.4)
[2019-10-20 08:40] LABS: Anisocytosis Present; Basophils # (auto) 0.02 K/uL (0-0.2); Basophils % (auto) 0.8 %; Eosinophils # (auto) 0.04 K/uL (0-0.5); Eosinophils % (auto) 1.5 %; Immature Granulocytes # (auto) 0.01 K/uL (0.00-0.02); Immature Granulocytes % (auto) 0.4 %; Lymphocytes # (auto) 0.68 K/uL (1.2-3.4); Lymphocytes % (auto) 26.2 %; Mean Platelet Volume 9.3 fL (7.4-10.4); Monocytes % (auto) 7.7 %; Neutrophils # (auto) 1.65 K/uL (1.4-6.5); Neutrophils % (auto) 63.4 %; Platelet Count 91 K/uL (130-400)
[2019-10-20 08:50] LABS: Albumin Level 3.4 gm/dl (3.4-5.0); BUN Creatinine Ratio 11.6 (10-20); Calcium 7.9 mg/dl (8.5-10.1); Creatinine Clr Calc Pharmacy 105.2 ml/min; Est GFR (African American) 126.3; Magnesium 1.9 mg/dl (1.8-2.4); Potassium 3.7 mmol/L (3.5-5.1)
[2019-10-20 08:56] LABS: Bilirubin,Total 1.5 mg/dl (0.2-1); Ferritin 21.6 ng/ml (8-388); Globulin 3.3 gm/dl (2.5-4.0); Total Protein 6.7 gm/dl (6.4-8.2)
[2019-10-20] MEDS: LORazepam 2 MG/4 ML VIAL IV PRN (09:36)
--- NOTE | 2019-10-20 13:07 | Gastrointestinal Consultation ---
Date of Consultation October 20, 2019 Assessment & Plan (1) Diarrhea: (2) Nausea & vomiting: (3) Acute GI bleeding: (4) Esophageal varices: Diarrhea: possible IBS-D, would start rifaximin 550 mg TID for 2 weeks. hematochezia, GI bleeding: possible variceal bleed or portal gastropathy given hx, NPO post midnight, plan for EGD tomorrow morning Recs: NPO post midnight EGD tomorrow morning start rifaximin 550 mg TID for 2 weeks supportive care rest as per primary team Jh Guerrero MD Gastroenterology History of Present Illness Attending Physician: Issac Cadena MD 54 yo female with hx cirrhosis here with coffee ground emesis. She has been having dark emesis for the last week, and today it was noted in the hospital that she had bloody bowel movement. Hgb noted to be 9.8, hx esophageal varices from last EGD in July 2019. she also has chronic diarrhea, colonoscopy with bx's recently unremarkable. Otherwise no issues at this time. labs reviewed. Allergies Allergy/AdvReac Type Severity Reaction Status Date / Time diphenhydramine Allergy Severe seizures/it Verified 10/19/19 15:27 mya/tremo rs bupropion Allergy Intermediate Palpitation Verified 10/19/19 15:27 s clarithromycin Allergy Intermediate HIVES Verified 10/19/19 15:27 aspirin Allergy Mild hives/ringing Verified 10/19/19 15:27 of ears oxaprozin Allergy Mild nausea/vomi Verified 10/19/19 15:27 ting salicylates Allergy Mild ringing in Verified 10/19/19 15:27 ears/hives Home Medications Home Medications Medication Instructions Recorded Confirmed Type citalopram [Celexa] 20 mg PO DAILY 08/08/18 10/19/19 History loperamide 2 mg PO Q8H PRN 09/11/19 10/19/19 History Centrum Silver 1 tab PO QAM 30 Days #0 tab 09/20/19 10/19/19 Rx colestipol 1 g PO HS 10/19/19 10/19/19 History gabapentin 400 mg PO TID 10/19/19 10/19/19 History magnesium oxide 400 mg PO DAILY 10/19/19 10/19/19 History mirtazapine 15 mg PO HS 10/19/19 10/19/19 History pantoprazole 40 mg PO DAILY 10/19/19 10/19/19 History potassium chloride 40 meq PO TID 10/19/19 10/19/19 History ropinirole [Requip] 0.25 mg PO HS 10/19/19 10/19/19 History Patient History Medical History Alcohol abuse hx of Anxiety Anxiety Cirrhosis Degenerative disc disease Esophageal varices with banding Factitious disorder Fibromyalgia Lumbago Multiple sclerosis Opiate addiction HX OF AND NO PROBLEMS NOW Opiate misuse Pancreatitis Pelvis fracture HX OF CRUSHED PELVIS - FROM ACCIDENT FALLING INTO DUMPSTER CHRONIC PAIN Presence of intrathecal pump PUMP IN PLACE AND NOT WORKING IT WAS TURNED OFF!!! containing morphine 0.189mg/day and fentanyl 2.52mcg/day miminimal rate per pt "it doesnt work I haven't been able to afford the medication for 3 years now"?? Seizures LAST ONE SEVERAL MONTHS AGO -- TAKES GABAPENTIN FOLLOW WITH DOCTOR KATHARINE ABRAHAM FROM [place] Stenosis of surgical anastomosis site of digestive tract Surgical History History of cholecystectomy History of colonoscopy History of esophagogastroduodenoscopy (EGD) History of open reduction and internal fixation (ORIF) procedure left arm/left leg--hardware in place History of Jeffy-en-Y gastric bypass History of tooth extraction all teeth removed History of total hysterectomy with bilateral salpingo-oophorectomy (BSO) Hx of laparoscopy FOR ENDOMETRIOSIS Hx of resection of small bowel DUE TO ENDOMETRIOSIS Family History Other Aneurysm Cancer No family history of adverse response to anesthesia Stroke Social History Smoking Status: Never smoker Second Hand Exposure: No; Hx Alcohol Use: Yes Alcohol type: beer, wine and hard liquor Hx Substance Use: Yes Substance Use Type Other:: dilaudid, ativan, pt has indwelling pain pump Preferred Language: Arabic Communication Ability: Effective 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: No Beliefs That Will Affect Care: None marital status: Current Living Situation: Alone How many Children do You have: 3 Other Information That Helps Us Care for You: No Feels Safe at Home: Yes Safety Concerns: Feels Safe At This Time Review of Systems Constitutional: no fever, no chills and no weight loss Eyes: as per Subjective / HPI Ear, Nose, Mouth, Throat: as per Subjective / HPI Respiratory: no dyspnea and no dyspnea on exertion Cardiovascular: no chest pain and no palpitations Gastrointestinal: as per Subjective / HPI Musculoskeletal: no joint pain and no swelling Integumentary: no rash and no lesions Neurologic: no numbness and no paresthesia Psychiatric: no depression and no anxiety Endocrine: no fatigue Hematologic / Lymphatic: no easy bleeding and no easy bruising Physical Exam Constitutional: WD/WN, vitals as above Eyes: EOM intact bilaterally Neck: normal visual inspection Respiratory: normal respiratory effort, lungs clear to auscultation Cardiovascular: RRR, no murmur, no edema Gastrointestinal (Abdomen): Inspection/Auscultation: abdomen normal to inspection; abdomen not distended Percussion/Palpation: abdomen soft; abdomen nontender and no hepatosplenomegaly Musculoskeletal: Extremities: no cyanosis Gait: normal gait Skin: no rashes, warm and dry Neurologic: moves all extremities Psychiatric: A+Ox3, euthymic affect Results & Data ([facility]) Vital Signs (Past 12 Hours) Vital Signs Temp Pulse Pulse Resp BP Pulse Ox 10/20/19 11:14 36.9 C 73 16 129/79 95 10/20/19 10:27 37.2 C 85 16 132/80 96 10/20/19 09:31 37.2 C 111 H 20 151/83 H 97 10/20/19 07:43 37.2 C 98 H 16 118/74 96 10/20/19 06:55 80 10/20/19 03:00 36.9 C 101 H 20 119/75 96 PG Care Time/CCT Total # of Minutes Spent Total Time Spent with Patient: Total time spent is greater than 50% in coordination of care (as documented) at patient's floor/unit and/or counseling patient: Coding Level of Care Code 47384 Inpt Consult Level 4 Diagnoses Diarrhea R19.7 Nausea & vomiting R11.2 Acute GI bleeding K92.2 Esophageal varices I85.00
[2019-10-20] MEDS: RIFAXIMIN 550 MG TABLET PO SCH ×2 (13:57→21:42)
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
[2019-10-20] MEDS ORDERED: Nursing to Pharmacy Communication SCH (16:00)
[2019-10-20] MEDS ORDERED: LOPERAMIDE HCL 2 MG CAP PO STA (17:49)
[2019-10-20] MEDS ORDERED: GABAPENTIN 600 MG TAB PO ONE (17:50)
[2019-10-20] MEDS ORDERED: GABAPENTIN 1200MG ALCOHOL WITHDRAWAL LOAD PO STA (17:50)
[2019-10-20] MEDS: LOPERAMIDE HCL 2 MG CAP PO PRN (18:12)
[2019-10-20] MEDS: GABAPENTIN 600 MG TAB PO SCH (18:13)
[2019-10-20] MEDS: ACETAMINOPHEN 325 MG TAB PO PRN (18:43)
[2019-10-20] MEDS: COLESTIPOL HCL 1 GM TAB PO SCH (21:40)
[2019-10-20] MEDS: ROPINIROLE HCL 0.25 MG TABLET PO SCH (21:41)
[2019-10-20] MEDS: MIRTAZAPINE TAB 15 MG TAB PO SCH (21:41)
--- NOTE | 2019-10-20 22:37 | Hospitalist Progress Note ---
Date of Service October 20, 2019 Assessment & Plan (1) Acute GI bleeding: Patient reports several episodes of coffee ground emesis. Hemodynamically stable. Hgb 12.1 --> 9.8 (after IV fluids). UGI bleeding could be secondary to esophagitis, gastritis, PUD, MW tear, esophageal varices. Continue PPI. GI consulted; EGD recommended. (2) Alcohol withdrawal: Last consumption about 2 days ago. Received thiamine. Started on alcohol withdrawal protocol with chlordiazepoxide + lorazepam. May do better with gabapentin protocol. Was prescribed gabapentin for neuropathy, but apparently she was taking lower dose than prescribed. (3) Alcoholism with alcohol dependence: Ongoing challenges with alcoholism. Continue support / counseling. (4) Diarrhea: Etiology uncertain. C diff pending. May be due to chronic pancreatic insufficiency. (5) COVID-19 ruled out: SARS-CoV-2 PCR negative 10/19. (6) DVT prophylaxis: No anticoagulants because of GI bleeding. SCD's. Ambulate. (7) Discharge planning issues: Discharge disposition to be determined. Medical follow-up with Dr. Ge. Admission and Anticipated Discharge Date Admission Date: October 19, 2019 Subjective Recheck for multiple problems. Patient seen in their room around 1500. Admitted yesterday for alcohol withdrawal and UGI bleed. Has tremors and anxiety. Denies hallucinations. Nausea today, but no emesis. No melena or hematochezia. Chronic problems with restless legs and lower extremity discomfort. Review of Systems: Constitutional- no fever. Cardiac- no chest pain. Pulmonary- no cough or SOB. GI- as noted above. - voiding without difficulty. Otherwise, as noted above. Physical Exam Constitutional: no acute distress Eyes: + anicteric sclerae Respiratory: no respiratory distress Auscultation: lungs clear to auscultation bilaterally Cardiovascular: Rate/Rhythm: regular rate and regular rhythm Vessels: no JVD Extremities: no calf tenderness and no edema Gastrointestinal (Abdomen): Inspection/Auscultation: normal bowel sounds Percussion/Palpation: + abdomen tender (mild epigastric tenderness) and abdomen soft Musculoskeletal: Extremities: no cyanosis Skin: no rashes, warm and dry Psychiatric: Orientation: alert and oriented x 3 Affect: + anxious affect Results & Data Results & Data ([facility]) Vital Signs (Past 12 Hours) Vital Signs Temp Pulse Pulse Resp BP Pulse Ox 10/20/19 22:00 36.5 C 83 16 162/97 H 95 10/20/19 19:00 36.8 C 84 20 131/86 96 10/20/19 15:53 95 H 10/20/19 11:14 36.9 C 73 16 129/79 95 Laboratory Results Laboratory Results - last 24 hr 10/20/19 10/20/19 10/20/19 07:31 07:31 07:31 WBC 2.60 L RBC 4.04 L Hgb 9.8 L Hct 31.8 L MCV 78.7 L MCH 24.3 L MCHC 30.8 L RDW Std Deviation 56.2 H RDW Coeff of [place]tan 19.5 H Plt Count 91 L MPV 9.3 Immature Gran % (Auto) 0.4 Neut % (Auto) 63.4 Lymph % (Auto) 26.2 [place] % (Auto) 7.7 Eos % (Auto) 1.5 Baso % (Auto) 0.8 Neut # (Auto) 1.65 Lymph # (Auto) 0.68 L [place] # (Auto) 0.20 Eos # (Auto) 0.04 Baso # (Auto) 0.02 Immature Gran # (Auto) 0.01 Anisocytosis Present Sodium 139 Potassium 3.7 Chloride 108 H Carbon Dioxide 22 Anion Gap 9.0 BUN 6 L Creatinine 0.50 L Est Cr Clr Drug Dosing 105.2 Est GFR ( Amer) 126.3 Est GFR (Non-Af Amer) 109.0 BUN/Creatinine Ratio 11.6 Glucose 79 Calcium 7.9 L Phosphorus 3.0 Magnesium 1.9 Iron 162 H TIBC 415 Transferrin 337 Ferritin 21.6 Total Bilirubin 1.5 H D AST 109 H ALT 44 Alkaline Phosphatase 112 Total Protein 6.7 D Albumin 3.4 Globulin 3.3 Albumin/Globulin Ratio 1.0 Vitamin B12 471 COVID-19 Eval Order SARS-CoV-2, RNA, NAAT Blood Type Antibody Screen 10/20/19 10/20/19 10/20/19 14:22 21:25 21:25 WBC RBC Hgb Hct MCV MCH MCHC RDW Std Deviation RDW Coeff of [place] Plt Count MPV Immature Gran % (Auto) Neut % (Auto) Lymph % (Auto) [place] % (Auto) Eos % (Auto) Baso % (Auto) Neut # (Auto) Lymph # (Auto) [place] # (Auto) Eos # (Auto) Baso # (Auto) Immature Gran # (Auto) Anisocytosis Sodium Potassium Chloride Carbon Dioxide Anion Gap BUN Creatinine Est Cr Clr Drug Dosing Est GFR ( Amer) Est GFR (Non-Af Amer) BUN/Creatinine Ratio Glucose Calcium Phosphorus Magnesium Iron TIBC Transferrin Ferritin Total Bilirubin AST ALT Alkaline Phosphatase Total Protein Albumin Globulin Albumin/Globulin Ratio Vitamin B12 COVID-19 Eval [facility] SARS-CoV-2, RNA, NAAT NEGATIVE Blood Type A Positive Antibody Screen NEGATIVE (1) Alcoholism with alcohol dependence Complication of substance-induced condition: uncomplicated Substance use status: in withdrawal Qualified Code(s): F10.230 - Alcohol dependence with wi thdrawal, uncomplicated
[2019-10-21] MEDS: GABAPENTIN 600 MG TAB PO SCH ×4 (00:11→23:53)
[2019-10-21] MEDS: PANTOprazole 40 MG in DEXTROSE 5% 100 ML IV SCH ×4 (02:59→16:22)
[2019-10-21] MEDS: LORazepam 1 MG/2 ML VIAL IV PRN (03:41)
[2019-10-21 06:51] LABS: Hemoglobin 11.1 g/dL (12.0-16.0); Mean Corpuscular Hemoglobin 24.2 pg (25-34); Mean Corpuscular Volume 80.6 fL (80-100); RDW Coefficient of Variation 19.4 % (11.5-14.5); RDW Standard Deviation 56.3 fL (36.4-46.3); Red Blood Count 4.59 M/uL (4.2-5.4); White Blood Count 2.49 K/uL (4.8-10.8)
[2019-10-21 06:54] LABS: Mean Platelet Volume 9.2 fL (7.4-10.4); Platelet Count 85 K/uL (130-400)
[2019-10-21 07:00] LABS: INR 1.1 (0.9-1.1)
--- NOTE | 2019-10-21 07:06 | History & Physical Bridge Note ---
Date of Service October 21, 2019 History & Physical Bridge Note I have examined the patient, reviewed the History & Physical and in the interval since the performance of the History & Physical I have noted the following changes of clinical significance: no changes noted Proceed with EGD. risks/benefits and procedure discussed with patient, who agrees to proceed
[2019-10-21 07:24] LABS: Albumin Level 3.6 gm/dl (3.4-5.0); BUN Creatinine Ratio 5.1 (10-20); Bilirubin Direct 0.3 mg/dl (0-0.2); Calcium 8.6 mg/dl (8.5-10.1); Creatinine Clr Calc Pharmacy 109.5 ml/min; Est GFR (Non-African American) 110.4; Magnesium 1.8 mg/dl (1.8-2.4)
[2019-10-21 07:27] LABS: Bilirubin,Total 0.9 mg/dl (0.2-1); Globulin 3.5 gm/dl (2.5-4.0); Total Protein 7.1 gm/dl (6.4-8.2)
[2019-10-21] MEDS ORDERED: PROPOFOL IV EMULSION 10 MG/ML 20 ML VIAL IV ONE (09:24)
[2019-10-21] MEDS ORDERED: LIDOCAINE HCL 2% 2 ML VIAL/AMP(20MG/ML) INFIL ONE (09:24)
[2019-10-21] MEDS ORDERED: ONDANSETRON INJ 2 MG/ML 2 ML VIAL ONE (09:24)
[2019-10-21] MEDS ORDERED: ESMOLOL HCL INJ 10 MG/ML 10ML VIAL IV ONE (09:34)
[2019-10-21] MEDS ORDERED: ePHEDrine sulfate 50 MG/ML AMP IV PRN (09:46)
[2019-10-21] MEDS ORDERED: ATROPINE SULFATE 0.1 MG/ML 10ML SYR IV PRN (09:46)
--- NOTE | 2019-10-21 09:46 | GI REPORT ---
Patient Name: Siena Saldana Procedure Date: 10/21/2019 7:08 AM Date of : 1965 Admit Type: Inpatient Age: 54 Gender: Female Attending MD: Jh Guerrero MD Procedure: Upper GI endoscopy Providers: Jh Guerrero MD Referring MD: Issac Cadena Indications: Coffee-ground emesis, Hematochezia Medicines: Monitored Anesthesia Care Complications: No immediate complications. Estimated blood loss: None. Estimated Blood Loss: Estimated blood loss: none. Procedure: Pre-Anesthesia Assessment: - Prior Anticoagulants: The patient has taken no previous anticoagulant or antiplatelet agents. - ASA Grade Assessment: III - A patient with severe systemic disease. After obtaining informed consent, the endoscope was passed under direct vision. Throughout the procedure, the patient's blood pressure, pulse, and oxygen saturations were monitored continuously. The Endoscope was introduced through the mouth, and advanced to the second part of duodenum. The upper GI endoscopy was accomplished without difficulty. The patient tolerated the procedure well. Findings: Large (> 5 mm) varices were found in the distal esophagus. They were not bleeding. Estimated blood loss: none. Severe portal hypertensive gastropathy was found in the stomach with blood oozing in various parts. Coagulation for hemostasis using argon plasma at 0.3 liters/minute and 35 castellaon was successful. Estimated blood loss: none. The examined duodenum was normal. Impression: - Large (> 5 mm) esophageal varices. - Portal hypertensive gastropathy. Treated with argon plasma coagulation (APC). - Normal examined duodenum. - No specimens collected. Recommendation: - [facility]. - Clear liquid diet today. can advance tomorrow morning as tolerated if stable -protonix 40 mg daily -start beta gayle, coreg 3.25 mg BID -start ceftriaxone 1 g daily for 7 days for SBP ppx in the setting of UGI bleed in a cirrhotic Jh Guerrero MD 10/21/2019 9:46:07 AM This report has been signed electronically. Note Initiated On: 10/21/2019 7:08 AM Number of Addenda: 0 I attest to the content of the Intraoperative Record and orders documented therein, exceptions below {[id number]}
--- NOTE | 2019-10-21 09:48 | Procedure Note ---
Procedure Note Date of Service October 21, 2019 EGD findings: severe portal hypertensive gastropathy that was oozing blood in the remaining stomach, treated with APC. large nonbleeding esophageal varices. Recs: --start coreg 3.25 mg BID --start ceftriaxone 1 g daily for 7 days for SBP ppx -- protonix 40 mg daily -- clear liquid diet today, can advance tomorrow morning as tolerated if stable --will need repeat EGD in no later than 1 year for surveillance of varices rest as per primary team Jh Guerrero MD Gastroenterology Coding
--- NOTE | 2019-10-21 10:15 | Anesthesiology Progress Note ---
Date of Service October 21, 2019 Anesthesia Post Procedure Vital Signs Vital Signs: Temp Pulse Pulse Pulse Resp BP BP 10/21/19 10:00 36.8 C 97 H 16 146/99 H 10/21/19 09:50 107 H 17 131/91 10/21/19 09:40 37.1 C 110 H 16 125/74 10/21/19 08:02 36.7 C 78 16 138/85 10/21/19 07:45 74 10/21/19 03:32 36.4 C L 69 18 132/82 10/20/19 22:00 36.5 C 83 16 162/97 H 10/20/19 19:00 36.8 C 84 20 131/86 10/20/19 15:53 95 H 10/20/19 11:14 36.9 C 73 16 129/79 10/20/19 10:27 37.2 C 85 16 132/80 Pulse Ox 10/21/19 10:00 99 10/21/19 09:50 97 10/21/19 09:40 97 10/21/19 08:02 97 10/21/19 07:45 10/21/19 03:32 97 10/20/19 22:00 95 10/20/19 19:00 96 10/20/19 15:53 10/20/19 11:14 95 10/20/19 10:27 96 Pain Intensity Generalized: Pain Intensity: 4 Transfer of Care Handoff Completed per policy Notes Mental Status: alert / awake / arousable and participated in evaluation Patient Amnestic to Procedure: Yes Nausea / Vomiting: adequately controlled Pain: adequately controlled Airway Patency, RR, SpO2: stable & adequate BP & HR: stable & adequate Hydration State: stable & adequate Anesthetic Complications: no major complications apparent and Pt Satisfied with anesthetic care
[2019-10-21] MEDS: FOLIC ACID 1 MG TAB PO SCH (10:34)
[2019-10-21] MEDS: CITALOPRAM 20 MG TAB PO SCH (10:34)
[2019-10-21] MEDS: MAGNESIUM OXIDE 400 MG TAB PO SCH (10:34)
[2019-10-21] MEDS: RIFAXIMIN 550 MG TABLET PO SCH ×3 (10:35→20:58)
[2019-10-21] MEDS: MULTIVITAMIN TAB PO SCH (10:35)
[2019-10-21] MEDS: GABAPENTIN 400 MG CAP PO SCH ×3 (10:35→20:57)
[2019-10-21] MEDS: THIAMINE HCL 100 MG TAB PO SCH (10:36)
[2019-10-21] MEDS: POTASSIUM CHLORIDE / WTR 10 MEQ/100 ML PLCT IV SCH ×4 (10:37→21:36)
[2019-10-21] MEDS: LORazepam 2 MG/4 ML VIAL IV PRN (11:30)
[2019-10-21] MEDS: LOPERAMIDE HCL 2 MG CAP PO PRN (16:22)
[2019-10-21] MEDS: ACETAMINOPHEN 325 MG TAB PO PRN (17:23)
--- NOTE | 2019-10-21 18:57 | Hospitalist Progress Note ---
Date of Service October 21, 2019 Assessment & Plan (1) Acute GI bleeding: Patient reports several episodes of coffee ground emesis. Hemodynamically stable. Hgb 12.1 --> 9.8 (after IV fluids) --> 11.1. UGI bleeding could be secondary to esophagitis, gastritis, PUD, MW tear, esophageal varices. Received IV pantoprazole. GI consulted. EGD today showed large nonbleeding esophageal varices, portal hypertensive gastropathy treated with APC, normal duodenum. GI recommendations: pantoprazole 40 mg daily carvedilol 3.25 mg BID ceftriaxone 1 gm daily x 7 days (2) Alcohol withdrawal: Last consumption about 2 days ago. Received thiamine. Started on alcohol withdrawal protocol with chlordiazepoxide + lorazepam. Transitioned to gabapentin protocol. (3) Alcoholism with alcohol dependence: Ongoing challenges with alcoholism. Continue support / counseling. (4) Diarrhea: Etiology uncertain. C diff pending. May be due to irritable bowel syndrome or chronic pancreatic insufficiency. (5) Hypokalemia: K today = 3.0. Replace. Follow. (6) COVID-19 ruled out: SARS-CoV-2 PCR negative 10/19. (7) DVT prophylaxis: No anticoagulants because of GI bleeding. SCD's. Ambulate. (8) Discharge planning issues: Discharge disposition to be determined. Medical follow-up with Dr. Ge. Admission and Anticipated Discharge Date Admission Date: October 19, 2019 Subjective Recheck for multiple problems. Patient seen in their room around 0730. Anxious. Denies hallucinations. Nausea today, but no emesis. Persistent loose stools, but no apparent melena or hematochezia. Chronic problems with restless legs, lower extremity discomfort, back pain. Review of Systems: Constitutional- no fever. Cardiac- no chest pain. Pulmonary- no cough or SOB. GI- as noted above. - voiding without difficulty. Otherwise, as noted above. Physical Exam Constitutional: no acute distress Eyes: + anicteric sclerae Respiratory: no respiratory distress Auscultation: lungs clear to auscultation bilaterally Cardiovascular: Rate/Rhythm: regular rate and regular rhythm Heart Sounds: no gallop, no murmur and no cardiac rub Vessels: no JVD Extremities: no calf tenderness and no edema Gastrointestinal (Abdomen): normal bowel sounds, soft, nontender, no hepatosplenomegaly Inspection/Auscultation: normal bowel sounds Percussion/Palpation: + abdomen tender (mild epigastric tenderness) and abdomen soft Musculoskeletal: Extremities: no cyanosis Skin: no rashes, warm and dry Psychiatric: Orientation: alert and oriented x 3 Affect: + anxious affect Results & Data Results & Data ([facility]) Vital Signs (Past 12 Hours) Vital Signs Temp Pulse Pulse Pulse Pulse Resp BP 10/21/19 16:26 69 10/21/19 11:04 36.5 C 89 16 139/89 10/21/19 10:00 36.8 C 97 H 16 146/99 H 10/21/19 09:50 107 H 17 131/91 10/21/19 09:40 37.1 C 110 H 16 125/74 10/21/19 08:02 36.7 C 78 16 138/85 10/21/19 07:45 74 Pulse Ox 10/21/19 16:26 10/21/19 11:04 97 10/21/19 10:00 99 10/21/19 09:50 97 10/21/19 09:40 97 10/21/19 08:02 97 10/21/19 07:45 Laboratory Results 10/21/19 06:19 10/21/19 06:19 (1) Alcoholism with alcohol dependence Complication of substance-induced condition: uncomplicated Substance use status: in withdrawal Qualified Code(s): F10.230 - Alcohol dependence with withdrawal, uncomplicated
[2019-10-21] MEDS: cefTRIAXone SODIUM 1,000 MG in DEXTROSE 5% 50 ML IV SCH (19:12)
[2019-10-21] MEDS: ROPINIROLE HCL 0.25 MG TABLET PO SCH (20:57)
[2019-10-21] MEDS: MIRTAZAPINE TAB 15 MG TAB PO SCH (20:57)
[2019-10-21] MEDS: COLESTIPOL HCL 1 GM TAB PO SCH (20:57)
[2019-10-21] MEDS: carvediloL 3.125 MG TAB PO SCH (21:00)
[2019-10-22 08:11] LABS: Hematocrit (blood only) 33.7 % (37-47); Mean Corpuscular Hemoglobin 24.2 pg (25-34); Mean Corpuscular Hgb Conc 29.7 g/dL (32-36); Mean Corpuscular Volume 81.6 fL (80-100); RDW Coefficient of Variation 19.2 % (11.5-14.5); RDW Standard Deviation 56.7 fL (36.4-46.3); Red Blood Count 4.13 M/uL (4.2-5.4); White Blood Count 2.26 K/uL (4.8-10.8)
[2019-10-22 08:22] LABS: Mean Platelet Volume 9.9 fL (7.4-10.4); Platelet Count 77 K/uL (130-400)
[2019-10-22] MEDS: GABAPENTIN 400 MG CAP PO SCH ×3 (08:27→20:32)
[2019-10-22] MEDS: MULTIVITAMIN TAB PO SCH (08:27)
[2019-10-22] MEDS: CITALOPRAM 20 MG TAB PO SCH (08:27)
[2019-10-22] MEDS: THIAMINE HCL 100 MG TAB PO SCH (08:27)
[2019-10-22] MEDS: MAGNESIUM OXIDE 400 MG TAB PO SCH (08:27)
[2019-10-22] MEDS: RIFAXIMIN 550 MG TABLET PO SCH ×3 (08:27→20:32)
[2019-10-22] MEDS: PANTOprazole 40 MG TAB PO SCH (08:27)
[2019-10-22] MEDS: carvediloL 3.125 MG TAB PO SCH ×2 (08:27→20:31)
[2019-10-22] MEDS: FOLIC ACID 1 MG TAB PO SCH (08:27)
[2019-10-22 08:38] LABS: BUN Creatinine Ratio 2.7 (10-20); Calcium 8.9 mg/dl (8.5-10.1); Creatinine Clr Calc Pharmacy 89.1 ml/min; Est GFR (African American) 119.6; Est GFR (Non-African American) 103.2; Magnesium 1.8 mg/dl (1.8-2.4); Potassium 3.4 mmol/L (3.5-5.1)
[2019-10-22] MEDS: LOPERAMIDE HCL 2 MG CAP PO PRN ×2 (10:10→18:24)
[2019-10-22] MEDS: GABAPENTIN 600 MG TAB PO SCH (11:48)
--- NOTE | 2019-10-22 15:29 | Gastroenterology Progress Note ---
Date of Service October 22, 2019 Assessment & Plan (1) Portal hypertensive gastropathy: (2) Esophageal varices: (3) Diarrhea: PHG s/p EGD with APC, diarrhea on rifaximin TID Recs: continue rifaximin TID for total of 2 week course to treat for possible IBS-D will need repeat EGD in 1 year advance diet as tolerated coreg 3.25 mg BID for PHG protonix 40 mg daily complete 7 days of abx for SBP ppx rest as per primary team Admission and Anticipated Discharge Date Admission Date: October 19, 2019 Subjective no events overnight, feels tired today. having loose stool, no hematochezia nor melena. afebrile. EGD yesterday with APC of oozing portal hypertensive gastropathy, large nonbleeding EVs were found as well. labs reviewed. Review of Systems Constitutional: no fever and no chills Respiratory: no cough, no dyspnea and no dyspnea on exertion Cardiovascular: no chest pain and no dyspnea Gastrointestinal: as per Subjective / HPI Psychiatric: no depression and no anxiety Physical Exam Constitutional: WD/WN, vitals as above Respiratory: normal respiratory effort, lungs clear to auscultation Cardiovascular: RRR, no murmur, no edema Gastrointestinal (Abdomen): normal bowel sounds, soft, nontender, no hepatosplenomegaly Musculoskeletal: no lower extremity edema Psychiatric: A+Ox3, euthymic affect Results & Data Results & Data ([facility]) Vital Signs (Past 12 Hours) Vital Signs Temp Pulse Pulse Resp BP Pulse Ox 10/22/19 14:41 37.0 C 75 16 119/76 96 10/22/19 11:15 36.7 C 62 16 135/86 97 10/22/19 08:00 60 10/22/19 07:18 36.8 C 74 16 124/69 96 PG Care Time/CCT Total # of Minutes Spent Total Time Spent with Patient: Total time spent is greater than 50% in coordination of care (as documented) at patient's floor/unit and/or counseling patient: Coding Level of Care Code 38918 Subseq Hosp Care Lvl 3 Diagnoses Portal hypertensive gastropathy K76.6; K31.89 Esophageal varices I85.00 Diarrhea R19.7
[2019-10-22] MEDS: ACETAMINOPHEN 325 MG TAB PO PRN (16:10)
[2019-10-22] MEDS: TRAMADOL HCL 50 MG TABLET PO PRN (16:10)
--- NOTE | 2019-10-22 17:39 | Hospitalist Progress Note ---
Date of Service October 22, 2019 Assessment & Plan (1) Acute GI bleeding: Patient reports several episodes of coffee ground emesis. Hemodynamically stable. Hgb 12.1 --> 9.8 (after IV fluids) --> 10.0. UGI bleeding could be secondary to esophagitis, gastritis, PUD, MW tear, esophageal varices. Received IV pantoprazole. GI consulted. EGD 10/20 showed large nonbleeding esophageal varices, portal hypertensive gastropathy treated with APC, normal duodenum. GI recommendations: pantoprazole 40 mg daily carvedilol 3.25 mg BID ceftriaxone 1 gm daily x 7 days for SBP prophylaxis (2) Alcohol withdrawal: Last consumption about 2 days ago. Received thiamine. Started on alcohol withdrawal protocol with chlordiazepoxide + lorazepam. Transitioned to gabapentin protocol. (3) Alcoholism with alcohol dependence: Ongoing challenges with alcoholism. Continue support / counseling. (4) Diarrhea: Etiology uncertain. C diff pending. May be due to irritable bowel syndrome or chronic pancreatic insufficiency. (5) Hypokalemia: K today = 3.4. Replace. Follow. (6) COVID-19 ruled out: SARS-CoV-2 PCR negative 10/19. (7) DVT prophylaxis: No anticoagulants because of GI bleeding. SCD's. Ambulate. (8) Discharge planning issues: Discharge disposition to be determined. Limited mobility due to previous lower extremity injuries and neuropathy. Also needs 7 day course of IV ceftriaxone. May benefit from skilled care or rehab. PT / OT evals. Medical follow-up with Dr. Ge. Admission and Anticipated Discharge Date Admission Date: October 19, 2019 Subjective Recheck for multiple problems. Patient seen in their room around 1530. Less anxious. Denies hallucinations. Nausea improved- ready to advance diet. Persistent loose stools, but no apparent melena or hematochezia. Chronic problems with restless legs, lower extremity discomfort, back pain. Review of Systems: Constitutional- no fever. Cardiac- no chest pain. Pulmonary- no cough or SOB. GI- as noted above. - voiding without difficulty. Otherwise, as noted above. Physical Exam Constitutional: no acute distress Eyes: + anicteric sclerae Respiratory: no respiratory distress Auscultation: lungs clear to auscultation bilaterally Cardiovascular: Rate/Rhythm: regular rate and regular rhythm Heart Sounds: no gallop, no murmur and no cardiac rub Vessels: no JVD Extremities: no calf tenderness and no edema Gastrointestinal (Abdomen): normal bowel sounds, soft, nontender, no hepatosplenomegaly Inspection/Auscultation: normal bowel sounds Percussion/Palpation: + abdomen tender (mild epigastric tenderness) and abdomen soft Musculoskeletal: Extremities: no cyanosis Skin: no rashes, warm and dry Psychiatric: Orientation: alert and oriented x 3 Results & Data Results & Data ([facility]) Vital Signs (Past 12 Hours) Vital Signs Temp Pulse Pulse Resp BP Pulse Ox 10/22/19 16:28 64 10/22/19 14:41 37.0 C 75 16 119/76 96 10/22/19 11:15 36.7 C 62 16 135/86 97 10/22/19 08:00 60 10/22/19 07:18 36.8 C 74 16 124/69 96 Laboratory Results 10/22/19 07:49 10/22/19 07:49 (1) Alcoholism with alcohol dependence Complication of substance-induced condition: uncomplicated Substance use status: in withdrawal Qualified Code(s): F10.230 - Alcohol dependence with withdrawal, uncomplicated
[2019-10-22] MEDS: cefTRIAXone SODIUM 1,000 MG in DEXTROSE 5% 50 ML IV SCH (19:37)
[2019-10-22] MEDS ORDERED: chlordiazePOXIDE HCl 5 MG CAP PO SCH (20:00)
[2019-10-22] MEDS: ROPINIROLE HCL 0.25 MG TABLET PO SCH (20:32)
[2019-10-22] MEDS: COLESTIPOL HCL 1 GM TAB PO SCH (20:32)
[2019-10-22] MEDS: MAGNESIUM CHLORIDE 64MG DELAYED REL TAB PO SCH (20:32)
[2019-10-22] MEDS: MIRTAZAPINE TAB 15 MG TAB PO SCH (20:32)
[2019-10-23] MEDS: GABAPENTIN 600 MG TAB PO SCH (00:25)
[2019-10-23] MEDS: TRAMADOL HCL 50 MG TABLET PO PRN ×4 (00:48→21:26)
[2019-10-23 06:45] LABS: Hematocrit (blood only) 30.4 % (37-47); Hemoglobin 8.9 g/dL (12.0-16.0); Mean Corpuscular Hemoglobin 24.3 pg (25-34); Mean Corpuscular Hgb Conc 29.3 g/dL (32-36); Mean Corpuscular Volume 82.8 fL (80-100); RDW Coefficient of Variation 19.3 % (11.5-14.5); RDW Standard Deviation 58.3 fL (36.4-46.3); Red Blood Count 3.67 M/uL (4.2-5.4); White Blood Count 1.38 K/uL (4.8-10.8)
[2019-10-23 06:47] LABS: Mean Platelet Volume 9.8 fL (7.4-10.4); Platelet Count 73 K/uL (130-400)
[2019-10-23 07:19] LABS: BUN Creatinine Ratio 4.8 (10-20); Calcium 8.3 mg/dl (8.5-10.1); Creatinine Clr Calc Pharmacy 95.6 ml/min; Est GFR (African American) 122.4; Est GFR (Non-African American) 105.6; Potassium 3.4 mmol/L (3.5-5.1)
[2019-10-23] MEDS: LOPERAMIDE HCL 2 MG CAP PO PRN ×2 (07:48→14:11)
[2019-10-23] MEDS: MULTIVITAMIN TAB PO SCH (07:52)
[2019-10-23] MEDS: carvediloL 3.125 MG TAB PO SCH ×2 (07:52→21:04)
[2019-10-23] MEDS: FOLIC ACID 1 MG TAB PO SCH (07:52)
[2019-10-23] MEDS: THIAMINE HCL 100 MG TAB PO SCH (07:52)
[2019-10-23] MEDS: PANTOprazole 40 MG TAB PO SCH (07:52)
[2019-10-23] MEDS: CITALOPRAM 20 MG TAB PO SCH ×2 (07:52→21:04)
[2019-10-23] MEDS: MAGNESIUM CHLORIDE 64MG DELAYED REL TAB PO SCH ×2 (07:52→21:04)
[2019-10-23] MEDS: RIFAXIMIN 550 MG TABLET PO SCH ×3 (07:52→21:04)
[2019-10-23] MEDS: GABAPENTIN 400 MG CAP PO SCH ×3 (07:52→21:04)
[2019-10-23 12:08] LABS: Amphetamines+Metham, Urine Neg (Neg); Barbiturates, Urine Neg (Neg); Benzodiazepine, Urine Pos (Neg); Cocaine, Urine Neg (Neg); MDMA (Ecstacy), Urine Neg (Neg); Methadone, Urine Neg (Neg); Opiate, Urine Neg (Neg); Phencyclidine, Urine Neg (Neg)
[2019-10-23] MEDS: ONDANSETRON INJ 2 MG/ML 2 ML VIAL IV PRN (13:14)
--- NOTE | 2019-10-23 13:46 | Gastroenterology Progress Note ---
Date of Service October 23, 2019 Assessment & Plan (1) Nausea & vomiting: Pt is a 54 y/o female with PMhx ETOH abuse, cirrhosis with varices, ascites, s/p gastric bypass, chronic diarrhea with recent colonoscopy 09/19/19 with portal colopathy, admitted for hematochezia and coffee ground emesis. She underwent EGD 10/21/19 demonstrated large (> 5 mm) EV, portal HTN gastropathy tx with APC, placed on rifaxmixin (possible IBS-D), beta gayle, ceftriaxone x 7 days for SBP prophylaxis, and PPI. HGB 10 -> 8.9 overnight; pt notes brown stool; abd is soft. Concern for GIB given drop in HGB, (? underlying upper GI source such as varices vs small bowel vs anastomotic source). She is HD stable. - Check stool for c. diff, GI pathogen given diarrhea - Trend H&H - Make NPO after midnight - If HGB continues to fall with plan on repeat EGD tomorrow - Continue PPI - Continue daily beta gayle - Continue ceftriaxone, rifaximin - Strict ETOH avoidance (2) Acute GI bleeding: (3) Portal hypertensive gastropathy: Admission and Anticipated Discharge Date Admission Date: October 19, 2019 Supervising Physician Co-Signing Physician Notes I performed a history and physical examination of the patient today, including specifically on physical exam - soft abdomen. I have discussed the patient's management with the advanced practitioner. Please refer to the nurse practitioner's note for the documented findings and plan of care. Continue to have drop in H/H. If H/H drops on tomorrows labs will need second look EGD and perhaps treating her esophageal varices. Subjective Pt seen and examined. Pt reports stool is brown; no hematochezia, melena. Labs reviewed; HGB 10->8.9. Review of Systems Review of Systems: All systems reviewed & are unremarkable except as noted in HPI & below Physical Exam Constitutional: + pale; no acute distress Respiratory: normal respiratory effort Cardiovascular: Rate/Rhythm: regular rate and regular rhythm Gastrointestinal (Abdomen): Inspection/Auscultation: abdomen normal to inspection Percussion/Palpation: abdomen soft; abdomen nontender Skin: no rashes, warm and dry Psychiatric: A+Ox3, euthymic affect Results & Data ([facility]) Vital Signs (Past 12 Hours) Vital Signs Temp Pulse Pulse Pulse Resp BP BP 10/23/19 11:01 36.9 C 67 18 116/76 10/23/19 08:00 67 10/23/19 06:50 36.7 C 60 16 123/80 10/23/19 04:00 36.6 C 61 16 112/74 Pulse Ox 10/23/19 11:01 97 10/23/19 08:00 10/23/19 06:50 99 10/23/19 04:00 98 Laboratory Results 10/23/19 10/23/19 10/23/19 Range/Units Unknown Unknown 11:35 WBC (4.8-10.8) K/uL RBC (4.2-5.4) M/uL Hgb (12.0-16.0) g/dL Hct (37-47) % MCV (80-100) fL MCH (25-34) pg MCHC (32-36) g/dL RDW Std Deviation (36.4-46.3) fL RDW Coeff of Chetan (11.5-14.5) % Plt Count (130-400) K/uL MPV (7.4-10.4) fL Sodium (136-145) mmol/L Potassium (3.5-5.1) mmol/L Chloride (98-107) mmol/L Carbon Dioxide (21-32) mmol/L Anion Gap (3-11) BUN (7-18) mg/dl Creatinine (0.6-1.2) mg/dl Est Cr Clr Drug Dosing ml/min Est GFR ( Amer) Est GFR (Non-Af Amer) BUN/Creatinine Ratio (10-20) Glucose (70-99) mg/dl Calcium (8.5-10.1) mg/dl Stool Occult Bld Scrn Negative (Negative) Stl C. diff Tox B Gene Negative Cdiff Gene (Neg) Urine Opiates Screen (Neg) Ur Methadone, Qual (Neg) Urine Barbiturates (Neg) Ur Phencyclidine (PCP) (Neg) U Amphetamin/Meth Scrn (Neg) MDMA (Ecstasy) Screen (Neg) U OH-Alprazolam Confrm Pending U Benzodiazepines Scrn (Neg) 7-Amino Clonazepam Pending Ur Nordiazepam Confirm Pending U OH-ethylflurazepam Pending U Lorazepam Cnf GC/MS Pending U Oxazepam Confm GC/MS Pending Ur Temazepam Confirm Pending U OH-Triazolam Confirm Pending U OH-Midazolam Confirm Pending Ur Cocaine Metabolite (Neg) U Marijuana (THC) Screen (Neg) Drug Screen Comment Pending 10/23/19 10/23/19 10/23/19 Range/Units 11:35 06:28 06:28 WBC 1.38 L (4.8-10.8) K/uL RBC 3.67 L (4.2-5.4) M/uL Hgb 8.9 L (12.0-16.0) g/dL Hct 30.4 L (37-47) % MCV 82.8 (80-100) fL MCH 24.3 L (25-34) pg MCHC 29.3 L (32-36) g/dL RDW Std Deviation 58.3 H (36.4-46.3) fL RDW Coeff of Chetan 19.3 H (11.5-14.5) % Plt Count 73 L (130-400) K/uL MPV 9.8 (7.4-10.4) fL Sodium 145 (136-145) mmol/L Potassium 3.4 L (3.5-5.1) mmol/L Chloride 117 H (98-107) mmol/L Carbon Dioxide 23 (21-32) mmol/L Anion Gap 5.0 (3-11) BUN 3 L (7-18) mg/dl Creatinine 0.55 L (0.6-1.2) mg/dl Est Cr Clr Drug Dosing 95.6 ml/min Est GFR ( Amer) 122.4 Est GFR (Non-Af Amer) 105.6 BUN/Creatinine Ratio 4.8 L (10-20) Glucose 77 (70-99) mg/dl Calcium 8.3 L (8.5-10.1) mg/dl Stool Occult Bld Scrn (Negative) Stl C. diff Tox B Gene (Neg) Urine Opiates Screen Neg (Neg) Ur Methadone, Qual Neg (Neg) Urine Barbiturates Neg (Neg) Ur Phencyclidine (PCP) Neg (Neg) U Amphetamin/Meth Scrn Neg (Neg) MDMA (Ecstasy) Screen Neg (Neg) U OH-Alprazolam Confrm U Benzodiazepines Scrn Pos H (Neg) 7-Amino Clonazepam Ur Nordiazepam Confirm U OH-ethylflurazepam U Lorazepam Cnf GC/MS U Oxazepam Confm GC/MS Ur Temazepam Confirm U OH-Triazolam Confirm U OH-Midazolam Confirm Ur Cocaine Metabolite Neg (Neg) U Marijuana (THC) Screen Neg (Neg) Drug Screen Comment
[2019-10-23] MEDS: cefTRIAXone SODIUM 1,000 MG in DEXTROSE 5% 50 ML IV SCH (18:27)
--- NOTE | 2019-10-23 20:10 | Hospitalist Progress Note ---
Date of Service October 23, 2019 Assessment & Plan (1) Acute GI bleeding: Patient reports several episodes of coffee ground emesis. Hemodynamically stable. Hgb 12.1 --> 9.8 (after IV fluids) --> 10.0 --> 8.9. UGI bleeding could be secondary to esophagitis, gastritis, PUD, MW tear, esophageal varices. Received IV pantoprazole. GI consulted. EGD 10/20 showed large nonbleeding esophageal varices, portal hypertensive gastropathy treated with APC, normal duodenum. GI recommendations: pantoprazole 40 mg daily carvedilol 3.25 mg BID ceftriaxone 1 gm daily x 7 days for SBP prophylaxis May need repeat EGD if Hgb continues to fall. (2) Alcohol withdrawal: Last consumption about 2 days ago. Received thiamine. Started on alcohol withdrawal protocol with chlordiazepoxide + lorazepam. Transitioned to gabapentin protocol. (3) Alcoholism with alcohol dependence: Ongoing challenges with alcoholism. Continue support / counseling. (4) Diarrhea: Etiology uncertain. C diff negative. May be due to irritable bowel syndrome or chronic pancreatic insufficiency. Further evaluation / management per GI. (5) Hypokalemia: K today = 3.4. Replace. Follow. (6) COVID-19 ruled out: SARS-CoV-2 PCR negative 10/19. (7) DVT prophylaxis: No anticoagulants because of GI bleeding. SCD's. Ambulate. (8) Discharge planning issues: Discharge disposition to be determined. Limited mobility due to previous lower extremity injuries and neuropathy. Also needs 7 day course of IV ceftriaxone. May benefit from skilled care or rehab. PT / OT evals. Medical follow-up with Dr. Ge. Admission and Anticipated Discharge Date Admission Date: October 19, 2019 Subjective Recheck for multiple problems. Patient seen in their room around 1620. Less anxious. No hallucinations. Still has intermittent nausea. Emesis today without gross blood or apparent coffee grounds. Persistent loose stools, but no apparent melena or hematochezia. Back and leg pain a little better with tramadol. Review of Systems: Constitutional- no fever. Cardiac- no chest pain. Pulmonary- no cough or SOB. GI- as noted above. - voiding without difficulty. Otherwise, as noted above. Physical Exam Constitutional: no acute distress Eyes: + anicteric sclerae Respiratory: no respiratory distress Auscultation: lungs clear to auscultation bilaterally Cardiovascular: Rate/Rhythm: regular rate and regular rhythm Heart Sounds: no gallop, no murmur and no cardiac rub Vessels: no JVD Extremities: no calf tenderness and no edema Gastrointestinal (Abdomen): Inspection/Auscultation: normal bowel sounds Percussion/Palpation: + abdomen tender (mild epigastric tenderness) and abdomen soft Musculoskeletal: Extremities: no cyanosis Skin: no rashes, warm and dry Psychiatric: Orientation: alert and oriented x 3 Affect: + anxious affect (improved) Results & Data Results & Data ([facility]) Vital Signs (Past 12 Hours) Vital Signs Temp Pulse Pulse Resp BP BP Pulse Ox 10/23/19 19:40 36.3 C L 73 20 125/85 96 10/23/19 15:06 36.9 C 76 16 120/79 94 10/23/19 15:00 79 10/23/19 11:01 36.9 C 67 18 116/76 97 Laboratory Results Laboratory Results - last 24 hr 10/23/19 10/23/19 10/23/19 06:28 06:28 11:35 WBC 1.38 L RBC 3.67 L Hgb 8.9 L Hct 30.4 L MCV 82.8 MCH 24.3 L MCHC 29.3 L RDW Std Deviation 58.3 H RDW Coeff of Chetan 19.3 H Plt Count 73 L MPV 9.8 Sodium 145 Potassium 3.4 L Chloride 117 H Carbon Dioxide 23 Anion Gap 5.0 BUN 3 L Creatinine 0.55 L Est Cr Clr Drug Dosing 95.6 Est GFR ( Amer) 122.4 Est GFR (Non-Af Amer) 105.6 BUN/Creatinine Ratio 4.8 L Glucose 77 Calcium 8.3 L Stool Occult Bld Scrn Stl C. diff Tox B Gene Urine Opiates Screen Neg Ur Methadone, Qual Neg Urine Barbiturates Neg Ur Phencyclidine (PCP) Neg U Amphetamin/Meth Scrn Neg MDMA (Ecstasy) Screen Neg U OH-Alprazolam Confrm U Benzodiazepines Scrn Pos H 7-Amino Clonazepam Ur Nordiazepam Confirm U OH-ethylflurazepam U Lorazepam Cnf GC/MS U Oxazepam Confm GC/MS Ur Temazepam Confirm U OH-Triazolam Confirm U OH-Midazolam Confirm Ur Cocaine Metabolite Neg U Marijuana (THC) Screen Neg Drug Screen Comment 10/23/19 10/23/19 10/23/19 11:35 Unknown Unknown WBC RBC Hgb Hct MCV MCH MCHC RDW Std Deviation RDW Coeff of Chetan Plt Count MPV Sodium Potassium Chloride Carbon Dioxide Anion Gap BUN Creatinine Est Cr Clr Drug Dosing Est GFR ( Amer) Est GFR (Non-Af Amer) BUN/Creatinine Ratio Glucose Calcium Stool Occult Bld Scrn Negative Stl C. diff Tox B Gene Negative Cdiff Gene Urine Opiates Screen Ur Methadone, Qual Urine Barbiturates Ur Phencyclidine (PCP) U Amphetamin/Meth Scrn MDMA (Ecstasy) Screen U OH-Alprazolam Confrm Pending U Benzodiazepines Scrn 7-Amino Clonazepam Pending Ur Nordiazepam Confirm Pending U OH-ethylflurazepam Pending U Lorazepam Cnf GC/MS Pending U Oxazepam Confm GC/MS Pending Ur Temazepam Confirm Pending U OH-Triazolam Confirm Pending U OH-Midazolam Confirm Pending Ur Cocaine Metabolite U Marijuana (THC) Screen Drug Screen Comment Pending (1) Alcoholism with alcohol dependence Complication of substance-induced condition: uncomplicated Substance use status: in withdrawal Qualified Code(s): F10.230 - Alcohol dependence with withdrawal, uncomplicated
[2019-10-23] MEDS: COLESTIPOL HCL 1 GM TAB PO SCH (21:04)
[2019-10-23] MEDS: MIRTAZAPINE TAB 15 MG TAB PO SCH (21:04)
[2019-10-23] MEDS: ROPINIROLE HCL 0.25 MG TABLET PO SCH (21:04)
[2019-10-24] MEDS: TRAMADOL HCL 50 MG TABLET PO PRN ×4 (03:14→22:25)
[2019-10-24] MEDS: LOPERAMIDE HCL 2 MG CAP PO PRN ×2 (03:15→10:00)
[2019-10-24] MEDS ORDERED: GABAPENTIN 600 MG TAB PO SCH (05:51)
[2019-10-24 07:17] LABS: Hematocrit (blood only) 31.4 % (37-47); Hemoglobin 9.3 g/dL (12.0-16.0); Mean Corpuscular Hemoglobin 24.5 pg (25-34); Mean Corpuscular Hgb Conc 29.6 g/dL (32-36); Mean Corpuscular Volume 82.6 fL (80-100); Nucleated RBC # (auto) 0.02 K/uL (0-0); Nucleated RBC % (auto) 1.3 %; RDW Coefficient of Variation 19.5 % (11.5-14.5); RDW Standard Deviation 58.6 fL (36.4-46.3); White Blood Count 1.29 K/uL (4.8-10.8)
[2019-10-24 07:22] LABS: Mean Platelet Volume 10.6 fL (7.4-10.4); Platelet Count 64 K/uL (130-400)
[2019-10-24 07:50] LABS: Alanine Aminotransferase 24 U/L (12-78); Albumin Level 2.9 gm/dl (3.4-5.0); Aspartate Aminotransferase 28 U/L (15-37); BUN Creatinine Ratio 8.4 (10-20); Bilirubin Direct < 0.1 mg/dl (0-0.2); Blood Urea Nitrogen 4 mg/dl (7-18); Calcium 8.1 mg/dl (8.5-10.1); Carbon Dioxide 24 mmol/L (21-32); Chloride 113 mmol/L (98-107); Creatinine Clr Calc Pharmacy 103.1 ml/min; Est GFR (African American) 125.5; Est GFR (Non-African American) 108.3; Glucose 96 mg/dl (70-99); Magnesium 1.7 mg/dl (1.8-2.4); Potassium 3.6 mmol/L (3.5-5.1); Sodium 143 mmol/L (136-145)
[2019-10-24 07:52] LABS: Albumin Globulin Ratio 0.9 (0.9-2); Alkaline Phosphatase 95 U/L (45-117); Bilirubin,Total 0.4 mg/dl (0.2-1); Globulin 3.2 gm/dl (2.5-4.0); Total Protein 6.1 gm/dl (6.4-8.2)
--- NOTE | 2019-10-24 08:25 | Gastroenterology Progress Note ---
Date of Service October 24, 2019 Assessment & Plan (1) Acute GI bleedin54 y/o female with coffee ground emesis, black stool. Her H&H is stable; therefore will forego EGD and pt can start a regular diet. C. diff neg; GI path panel pending. - Continue daily PPI - Continue beta gayle in the presence of esophageal varices - Strict ETOH avoidance - Pt should f/u with GI as an outpt; it looks like she was following with GI group at [facility] in [place]. - GI will sign off, please call with questions. Admission and Anticipated Discharge Date Admission Date: October 19, 2019 Supervising Physician Co-Signing Physician Notes I performed a history and physical examination of the patient today, including specifically on physical exam - soft abdomen. I have discussed the patient's management with the advanced practitioner. Please refer to the nurse practitioner's note for the documented findings and plan of care. H/H stable. Follow up as OP. Recall GI if needed. Subjective Pt seen and examined - overnight she had no further melena, hematemesis. Today H&H is stable. Stool neg for C. diff. C/o mild generalized abd discomfort. Physical Exam Constitutional: WD/WN, vitals as above Respiratory: normal respiratory effort Skin: no rashes, warm and dry Psychiatric: A+Ox3, euthymic affect Results & Data ([facility]) Vital Signs (Past 12 Hours) Vital Signs Temp Pulse Pulse Resp BP Pulse Ox 10/24/19 07:15 61 10/24/19 03:23 37.0 C 66 15 126/80 93 10/23/19 23:41 36.7 C 72 14 121/76 94 10/23/19 23:15 95 H Laboratory Results 10/24/19 10/24/19 10/23/19 Range/Units 06:43 06:43 11:35 WBC 1.29 L (4.8-10.8) K/uL RBC 3.80 L (4.2-5.4) M/uL Hgb 9.3 L (12.0-16.0) g/dL Hct 31.4 L (37-47) % MCV 82.6 (80-100) fL MCH 24.5 L (25-34) pg MCHC 29.6 L (32-36) g/dL RDW Std Deviation 58.6 H (36.4-46.3) fL RDW Coeff of Chetan 19.5 H (11.5-14.5) % Plt Count 64 L (130-400) K/uL MPV 10.6 H (7.4-10.4) fL Absolute Nucleated RBC 0.02 H (0-0) K/uL Nucleated RBC % (auto) 1.3 % Sodium 143 (136-145) mmol/L Potassium 3.6 (3.5-5.1) mmol/L Chloride 113 H (98-107) mmol/L Carbon Dioxide 24 (21-32) mmol/L Anion Gap 6.0 (3-11) BUN 4 L (7-18) mg/dl Creatinine 0.51 L (0.6-1.2) mg/dl Est Cr Clr Drug Dosing 103.1 ml/min Est GFR ( Amer) 125.5 Est GFR (Non-Af Amer) 108.3 BUN/Creatinine Ratio 8.4 L (10-20) Glucose 96 (70-99) mg/dl Calcium 8.1 L (8.5-10.1) mg/dl Magnesium 1.7 L (1.8-2.4) mg/dl Total Bilirubin 0.4 (0.2-1) mg/dl Direct Bilirubin < 0.1 (0-0.2) mg/dl AST 28 (15-37) U/L ALT 24 (12-78) U/L Alkaline Phosphatase 95 (45-117) U/L Total Protein 6.1 L (6.4-8.2) gm/dl Albumin 2.9 L (3.4-5.0) gm/dl Globulin 3.2 (2.5-4.0) gm/dl Albumin/Globulin Ratio 0.9 (0.9-2) Urine Opiates Screen (Neg) Ur Methadone, Qual (Neg) Urine Barbiturates (Neg) Ur Phencyclidine (PCP) (Neg) U Amphetamin/Meth Scrn (Neg) MDMA (Ecstasy) Screen (Neg) U OH-Alprazolam Confrm Pending U Benzodiazepines Scrn (Neg) 7-Amino Clonazepam Pending Ur Nordiazepam Confirm Pending U OH-ethylflurazepam Pending U Lorazepam Cnf GC/MS Pending U Oxazepam Confm GC/MS Pending Ur Temazepam Confirm Pending U OH-Triazolam Confirm Pending U OH-Midazolam Confirm Pending Ur Cocaine Metabolite (Neg) U Marijuana (THC) Screen (Neg) Drug Screen Comment Pending 10/23/19 Range/Units 11:35 WBC (4.8-10.8) K/uL RBC (4.2-5.4) M/uL Hgb (12.0-16.0) g/dL Hct (37-47) % MCV (80-100) fL MCH (25-34) pg MCHC (32-36) g/dL RDW Std Deviation (36.4-46.3) fL RDW Coeff of Chetan (11.5-14.5) % Plt Count (130-400) K/uL MPV (7.4-10.4) fL Absolute Nucleated RBC (0-0) K/uL Nucleated RBC % (auto) % Sodium (136-145) mmol/L Potassium (3.5-5.1) mmol/L Chloride (98-107) mmol/L Carbon Dioxide (21-32) mmol/L Anion Gap (3-11) BUN (7-18) mg/dl Creatinine (0.6-1.2) mg/dl Est Cr Clr Drug Dosing ml/min Est GFR ( Amer) Est GFR (Non-Af Amer) BUN/Creatinine Ratio (10-20) Glucose (70-99) mg/dl Calcium (8.5-10.1) mg/dl Magnesium (1.8-2.4) mg/dl Total Bilirubin (0.2-1) mg/dl Direct Bilirubin (0-0.2) mg/dl AST (15-37) U/L ALT (12-78) U/L Alkaline Phosphatase (45-117) U/L Total Protein (6.4-8.2) gm/dl Albumin (3.4-5.0) gm/dl Globulin (2.5-4.0) gm/dl Albumin/Globulin Ratio (0.9-2) Urine Opiates Screen Neg (Neg) Ur Methadone, Qual Neg (Neg) Urine Barbiturates Neg (Neg) Ur Phencyclidine (PCP) Neg (Neg) U Amphetamin/Meth Scrn Neg (Neg) MDMA (Ecstasy) Screen Neg (Neg) U OH-Alprazolam Confrm U Benzodiazepines Scrn Pos H (Neg) 7-Amino Clonazepam Ur Nordiazepam Confirm U OH-ethylflurazepam U Lorazepam Cnf GC/MS U Oxazepam Confm GC/MS Ur Temazepam Confirm U OH-Triazolam Confirm U OH-Midazolam Confirm Ur Cocaine Metabolite Neg (Neg) U Marijuana (THC) Screen Neg (Neg) Drug Screen Comment
[2019-10-24] MEDS: GABAPENTIN 400 MG CAP PO SCH ×3 (09:13→20:25)
[2019-10-24] MEDS: MULTIVITAMIN TAB PO SCH (09:13)
[2019-10-24] MEDS: RIFAXIMIN 550 MG TABLET PO SCH ×3 (09:13→20:26)
[2019-10-24] MEDS: MAGNESIUM CHLORIDE 64MG DELAYED REL TAB PO SCH ×2 (09:13→20:26)
[2019-10-24] MEDS: THIAMINE HCL 100 MG TAB PO SCH (09:13)
[2019-10-24] MEDS: PANTOprazole 40 MG TAB PO SCH (09:13)
[2019-10-24] MEDS: FOLIC ACID 1 MG TAB PO SCH (09:13)
[2019-10-24] MEDS: carvediloL 3.125 MG TAB PO SCH ×2 (09:13→20:24)
[2019-10-24] MEDS ORDERED: MAGNESIUM SULFATE / D5W 1 GM/100 ML BAG IV ONE (09:30)
[2019-10-24] MEDS: CITALOPRAM 20 MG TAB PO SCH (10:00)
[2019-10-24] MEDS: COLESTIPOL HCL 1 GM TAB PO SCH ×2 (15:52→22:01)
--- NOTE | 2019-10-24 16:39 | Hospitalist Progress Note ---
Date of Service October 24, 2019 Assessment & Plan (1) Acute GI bleeding: Presented with coffee ground emesis, Melena H/O esophageal varices --CT ABD:Study limited by the lack of intravenous and oral contrast. Left-sided nephrolithiasis. No hydronephrosis. No ureteral calculi identified. Postsurgical changes of a gastric bypass. No evidence of bowel obstruction. No evidence of free air. Borderline minimal sigmoid and left colonic wall thickening. Hepatic steatosis. Interval resolution of the previously identified ascites. --Monitor CBC --Counseled to quit alcohol use --Appreciate GI input --Continue PPI, beta-gayle --On Ceftriaxone for SBP prophylaxis --Needs follow-up with GI as outpatient (GI group at [facility] in [place]) UTI-POA Urine Culture: Klebsiella Blood Culture: No growth to date On ceftriaxone (2) Alcohol withdrawal: On Alcohol withdrawal Protocol Continue thiamine, folic acid Will benefit from alcohol rehab placement Case management to help with discharge planning (3) Alcoholism with alcohol dependence: As above (4) Diarrhea: Chronic C diff negative. In setting of chronic alcohol use Follows with GI as outpatient Continue colestipol Pancytopenia In setting of alcohol use Monitor CBC (5) Hypokalemia: Replete electrolytes as needed (6) COVID-19 ruled out: SARS-CoV-2 PCR negative 10/19. (7) DVT prophylaxis: SCDs Re: GI bleeding Ambulate. (8) Discharge planning issues: Will benefit from rehab placement Case management to help with discharge planning Admission and Anticipated Discharge Date Admission Date: October 19, 2019 Subjective Patient is seen and examined at bedside Complains of mild abdominal soreness Reports chronic diarrhea, chronic back pain Denies chest pain, shortness of breath, nausea, vomiting dizziness Offers no other complaints Review of Systems Review of Systems: All systems reviewed & are unremarkable except as noted in HPI & below Physical Exam Physical Exam: Physical Exam: Vitals signs as noted above General Appearance:Moderately built and nourished, no apparent distress Head: normocephalic, Atraumatic Eyes: normal inspection, EOMI Neck: supple, Trachea midline Respiratory/Chest: Normal breath sounds, CTA Cardiovascular: S1, S2, No murmur Abdomen/GI:Soft, Mild Epigastric tender, Bowel sounds present Extremities/Musculoskelatal:normal inspection, no edema Neurologic/Psych:AAOX3, grossly no focal neurological deficits Skin: normal color, warm Results & Data Results & Data ([facility]) Vital Signs (Past 12 Hours) Vital Signs Temp Pulse Pulse Pulse Resp BP Pulse Ox 10/24/19 15:10 36.8 C 74 16 110/71 95 10/24/19 11:26 37.0 C 92 H 16 131/86 95 10/24/19 09:08 36.8 C 65 16 163/92 H 97 10/24/19 07:15 61 Laboratory Results Short CBC 10/24/19 Range/Units 06:43 WBC 1.29 L (4.8-10.8) K/uL Hgb 9.3 L (12.0-16.0) g/dL Hct 31.4 L (37-47) % Plt Count 64 L (130-400) K/uL BMP 10/24/19 06:43 Sodium 143 Potassium 3.6 Chloride 113 H Carbon Dioxide 24 BUN 4 L Creatinine 0.51 L Glucose 96 Calcium 8.1 L Liver Function 10/24/19 Range/Units 06:43 Total Bilirubin 0.4 (0.2-1) mg/dl Direct Bilirubin < 0.1 (0-0.2) mg/dl AST 28 (15-37) U/L ALT 24 (12-78) U/L Alkaline Phosphatase 95 (45-117) U/L Albumin 2.9 L (3.4-5.0) gm/dl (1) Alcoholism with alcohol dependence Complication of substance-induced condition: uncomplicated Substance use status: in withdrawal Qualified Code(s): F10.230 - Alcohol dependence with withdrawal, uncomplicated
[2019-10-24] MEDS: cefTRIAXone SODIUM 1,000 MG in DEXTROSE 5% 50 ML IV SCH (20:21)
[2019-10-24] MEDS: ROPINIROLE HCL 0.25 MG TABLET PO SCH (20:24)
[2019-10-24] MEDS: MIRTAZAPINE TAB 15 MG TAB PO SCH (20:26)
[2019-10-25] MEDS: TRAMADOL HCL 50 MG TABLET PO PRN ×4 (04:38→22:31)
[2019-10-25] MEDS: ACETAMINOPHEN 325 MG TAB PO PRN (07:39)
[2019-10-25] MEDS: LOPERAMIDE HCL 2 MG CAP PO PRN ×3 (07:39→20:15)
[2019-10-25] MEDS: CITALOPRAM 20 MG TAB PO SCH (07:43)
[2019-10-25] MEDS: FOLIC ACID 1 MG TAB PO SCH (07:44)
[2019-10-25] MEDS: MULTIVITAMIN TAB PO SCH (07:44)
[2019-10-25] MEDS: GABAPENTIN 400 MG CAP PO SCH ×3 (07:44→20:16)
[2019-10-25 07:45] LABS: Hematocrit (blood only) 30.6 % (37-47); Mean Corpuscular Hemoglobin 24.1 pg (25-34); Mean Corpuscular Hgb Conc 29.4 g/dL (32-36); Mean Corpuscular Volume 81.8 fL (80-100); RDW Coefficient of Variation 19.6 % (11.5-14.5); RDW Standard Deviation 59.2 fL (36.4-46.3); Red Blood Count 3.74 M/uL (4.2-5.4); White Blood Count 1.44 K/uL (4.8-10.8)
[2019-10-25] MEDS: PANTOprazole 40 MG TAB PO SCH (07:45)
[2019-10-25] MEDS: MAGNESIUM CHLORIDE 64MG DELAYED REL TAB PO SCH ×2 (07:45→20:17)
[2019-10-25] MEDS: THIAMINE HCL 100 MG TAB PO SCH (07:46)
[2019-10-25] MEDS: RIFAXIMIN 550 MG TABLET PO SCH ×3 (07:46→20:16)
[2019-10-25 07:54] LABS: Mean Platelet Volume 9.9 fL (7.4-10.4); Platelet Count 54 K/uL (130-400)
[2019-10-25 08:10] LABS: 7-Aminoclonaz, Confirm NEGATIVE ng/mL (<25); Hydro-Alp Ur, GC/MS NEGATIVE ng/mL (<25); Hydroxyethylflurazepam, Conf NEGATIVE ng/mL (<50); Hydroxymidazolam Ur, GC/MS NEGATIVE ng/mL (<50); Hydroxytriazolam NEGATIVE ng/mL (<50); Lorazepam, Ur GC/MS >2000 ng/mL (<50); Nordiazepam, Confirm NEGATIVE ng/mL (<50); Oxazepam Ur, GC/MS NEGATIVE ng/mL (<50); Temazepam, Confirm NEGATIVE ng/mL (<50)
[2019-10-25 08:19] LABS: BUN Creatinine Ratio 14.9 (10-20); Calcium 8.3 mg/dl (8.5-10.1); Creatinine Clr Calc Pharmacy 107.3 ml/min; Est GFR (African American) 127.1; Est GFR (Non-African American) 109.7; Magnesium 1.8 mg/dl (1.8-2.4); Potassium 3.7 mmol/L (3.5-5.1)
[2019-10-25] MEDS: carvediloL 3.125 MG TAB PO SCH ×2 (08:30→20:15)
[2019-10-25] MEDS: COLESTIPOL HCL 1 GM TAB PO SCH ×2 (12:11→21:07)
--- NOTE | 2019-10-25 18:07 | Hospitalist Progress Note ---
Date of Service October 25, 2019 Assessment & Plan (1) Acute GI bleeding: Presented with coffee ground emesis, Melena H/O esophageal varices --CT ABD:Study limited by the lack of intravenous and oral contrast. Left-sided nephrolithiasis. No hydronephrosis. No ureteral calculi identified. Postsurgical changes of a gastric bypass. No evidence of bowel obstruction. No evidence of free air. Borderline minimal sigmoid and left colonic wall thickening. Hepatic steatosis. Interval resolution of the previously identified ascites. --Monitor CBC --Counseled to quit alcohol use --Appreciate GI input --Continue PPI, beta-gayle --Continue Ceftriaxone for SBP prophylaxis --Needs follow-up with GI as outpatient (GI group at [facility] in [place]) --Hb stable, No bleeding issues currently UTI-POA Urine Culture: Klebsiella Blood Culture: No growth to date On ceftriaxone (2) Alcohol withdrawal: On Alcohol withdrawal Protocol Continue thiamine, folic acid Will benefit from alcohol rehab placement Case management to help with discharge planning No withdrawal symptoms currently (3) Alcoholism with alcohol dependence: As above (4) Diarrhea: Chronic C diff negative. In setting of chronic alcohol use Follows with GI as outpatient Continue colestipol Pancytopenia In setting of alcohol use No bleeding issues Monitor CBC daily (5) Hypokalemia: Replete electrolytes as needed (6) COVID-19 ruled out: SARS-CoV-2 PCR negative 10/19. (7) DVT prophylaxis: SCDs Re: GI bleeding Ambulate. (8) Discharge planning issues: Will benefit from rehab placement Case management to help with discharge planning Admission and Anticipated Discharge Date Admission Date: October 19, 2019 Subjective Patient is seen and examined at bedside States feeling better today Intermittently anxious Participated with physical therapy this morning Chronic diarrhea, chronic back pain Denies chest pain, SOB, nausea, vomiting dizziness Needs Rehab placement No withdrawal symptoms today Review of Systems Review of Systems: All systems reviewed & are unremarkable except as noted in HPI & below Physical Exam Physical Exam: Physical Exam: Vitals signs as noted above General Appearance:Moderately built and nourished, no apparent distress Head: normocephalic, Atraumatic Eyes: normal inspection, EOMI Neck: supple, Trachea midline Respiratory/Chest: Normal breath sounds, CTA Cardiovascular: S1, S2, No murmur Abdomen/GI:Soft, non tender, Bowel sounds present Extremities/Musculoskelatal:normal inspection, no edema Neurologic/Psych:AAOX3, grossly no focal neurological deficits Skin: normal color, warm Results & Data Results & Data ([facility]) Vital Signs (Past 12 Hours) Vital Signs Temp Pulse Pulse Resp BP Pulse Ox 10/25/19 15:27 36.9 C 79 18 109/74 97 10/25/19 15:15 80 10/25/19 11:06 36.9 C 62 18 124/80 95 10/25/19 08:00 65 10/25/19 07:44 37.0 C 72 18 152/86 H 96 Laboratory Results Short CBC 10/25/19 Range/Units 07:34 WBC 1.44 L (4.8-10.8) K/uL Hgb 9.0 L (12.0-16.0) g/dL Hct 30.6 L (37-47) % Plt Count 54 L (130-400) K/uL BMP 10/25/19 07:34 Sodium 144 Potassium 3.7 Chloride 115 H Carbon Dioxide 22 BUN 7 Creatinine 0.49 L Glucose 87 Calcium 8.3 L (1) Alcoholism with alcohol dependence Complication of substance-induced condition: uncomplicated Substance use status: in withdrawal Qualified Code(s): F10.230 - Alcohol dependence with withdrawal, uncomplicated
[2019-10-25] MEDS: cefTRIAXone SODIUM 1,000 MG in DEXTROSE 5% 50 ML IV SCH (19:42)
[2019-10-25] MEDS: MIRTAZAPINE TAB 15 MG TAB PO SCH (20:16)
[2019-10-25] MEDS: ROPINIROLE HCL 0.25 MG TABLET PO SCH (20:16)
[2019-10-26] MEDS: TRAMADOL HCL 50 MG TABLET PO PRN ×4 (04:06→21:52)
[2019-10-26] MEDS: carvediloL 3.125 MG TAB PO SCH ×2 (07:29→20:46)
[2019-10-26] MEDS: ACETAMINOPHEN 325 MG TAB PO PRN (07:34)
[2019-10-26] MEDS: LOPERAMIDE HCL 2 MG CAP PO PRN ×2 (07:34→16:02)
[2019-10-26 07:37] LABS: Mean Corpuscular Hgb Conc 29.3 g/dL (32-36)
[2019-10-26 08:10] LABS: Calcium 9.3 mg/dl (8.5-10.1); Creatinine Clr Calc Pharmacy 99.2 ml/min; Est GFR (African American) 123.9; Est GFR (Non-African American) 106.9
[2019-10-26 08:14] LABS: Hematocrit (blood only) 36.8 % (37-47); Hemoglobin 10.8 g/dL (12.0-16.0); Mean Corpuscular Hemoglobin 23.9 pg (25-34); Mean Corpuscular Volume 81.6 fL (80-100); RDW Coefficient of Variation 19.4 % (11.5-14.5); RDW Standard Deviation 58.1 fL (36.4-46.3); Red Blood Count 4.51 M/uL (4.2-5.4); White Blood Count 1.32 K/uL (4.8-10.8)
[2019-10-26 08:17] LABS: Platelet Count 54 K/uL (130-400); Platelet Estimate Decreased (Normal)
[2019-10-26] MEDS: MULTIVITAMIN TAB PO SCH (08:34)
[2019-10-26] MEDS: PANTOprazole 40 MG TAB PO SCH (08:34)
[2019-10-26] MEDS: CITALOPRAM 20 MG TAB PO SCH (08:34)
[2019-10-26] MEDS: FOLIC ACID 1 MG TAB PO SCH (08:34)
[2019-10-26] MEDS: RIFAXIMIN 550 MG TABLET PO SCH ×3 (08:35→20:48)
[2019-10-26] MEDS: GABAPENTIN 400 MG CAP PO SCH ×3 (08:35→20:46)
[2019-10-26] MEDS: THIAMINE HCL 100 MG TAB PO SCH (08:35)
[2019-10-26] MEDS: MAGNESIUM CHLORIDE 64MG DELAYED REL TAB PO SCH ×2 (08:36→20:48)
[2019-10-26 09:48] LABS: Potassium 3.3 mmol/L (3.5-5.1)
[2019-10-26 09:50] LABS: Magnesium 1.5 mg/dl (1.8-2.4)
[2019-10-26] MEDS: COLESTIPOL HCL 1 GM TAB PO SCH ×2 (12:34→21:51)
[2019-10-26] MEDS ORDERED: POTASSIUM CHLORIDE 20 MEQ TABCR PO ONE (12:37)
[2019-10-26] MEDS ORDERED: MAGNESIUM SULFATE / D5W 1 GM/100 ML BAG IV ONE (13:00)
[2019-10-26] MEDS: cefTRIAXone SODIUM 1,000 MG in DEXTROSE 5% 50 ML IV SCH (18:41)
--- NOTE | 2019-10-26 19:08 | Hospitalist Progress Note ---
Date of Service October 26, 2019 Assessment & Plan (1) Acute GI bleeding: Presented with coffee ground emesis, Melena H/O esophageal varices --CT ABD:Study limited by the lack of intravenous and oral contrast. Left-sided nephrolithiasis. No hydronephrosis. No ureteral calculi identified. Postsurgical changes of a gastric bypass. No evidence of bowel obstruction. No evidence of free air. Borderline minimal sigmoid and left colonic wall thickening. Hepatic steatosis. Interval resolution of the previously identified ascites. --Monitor CBC --Counseled to quit alcohol use --Appreciate GI input --Continue PPI, beta-gayle --Continue Ceftriaxone for SBP prophylaxis --Needs follow-up with GI as outpatient (GI group at [facility] in [place]) --Hb stable --Continue current management UTI-POA Urine Culture: Klebsiella Blood Culture: No growth to date On ceftriaxone (2) Alcohol withdrawal: On Alcohol withdrawal Protocol Continue thiamine, folic acid Will benefit from alcohol rehab placement Case management to help with discharge planning No withdrawal symptoms currently Waiting for rehab placement (3) Alcoholism with alcohol dependence: As above (4) Diarrhea: Chronic C diff negative. In setting of chronic alcohol use Follows with GI as outpatient Continue colestipol Pancytopenia In setting of alcohol use No bleeding issues Monitor CBC daily (5) Hypokalemia: Hypokalemia Hypomagnesemia Secondary to chronic diarrhea Replete electrolytes as needed (6) COVID-19 ruled out: SARS-CoV-2 PCR negative 10/19. (7) DVT prophylaxis: SCDs Re: GI bleeding Ambulate. (8) Discharge planning issues: Waiting for rehab placement Case management to help with discharge planning Admission and Anticipated Discharge Date Admission Date: October 19, 2019 Subjective Patient is seen and examined at bedside No new complaints Tolerating diet Denies nausea, vomiting, abdominal pain, chest pain, shortness of breath No withdrawal symptoms currently Waiting for rehab placement Review of Systems Review of Systems: All systems reviewed & are unremarkable except as noted in HPI & below Physical Exam Physical Exam: Physical Exam: Vitals signs as noted above General Appearance:Moderately built and nourished, no apparent distress Head: normocephalic, Atraumatic Eyes: normal inspection, EOMI Neck: supple, Trachea midline Respiratory/Chest: Normal breath sounds, CTA Cardiovascular: S1, S2, No murmur Abdomen/GI:Soft, non tender, Bowel sounds present Extremities/Musculoskelatal:normal inspection, no edema Neurologic/Psych:AAOX3, grossly no focal neurological deficits Skin: normal color, warm Results & Data Results & Data ([facility]) Vital Signs (Past 12 Hours) Vital Signs Temp Pulse Resp BP Pulse Ox 10/26/19 15:16 37.0 C 78 19 124/79 98 10/26/19 12:47 36.8 C 80 16 125/83 96 10/26/19 07:06 37 C 65 18 164/83 H 99 Laboratory Results Short CBC 10/26/19 Range/Units 07:20 WBC 1.32 L (4.8-10.8) K/uL Hgb 10.8 L (12.0-16.0) g/dL Hct 36.8 L (37-47) % Plt Count 54 L (130-400) K/uL BMP 10/26/19 10/26/19 10/26/19 07:20 08:35 09:19 Sodium 140 Potassium 3.3 L Chloride 111 H Carbon Dioxide 22 BUN 6 L Creatinine 0.53 L Glucose 102 H Calcium 9.3 (1) Alcoholism with alcohol dependence Complication of substance-induced condition: uncomplicated Substance use status: in withdrawal Qualified Code(s): F10.230 - Alcohol dependence with withdrawal, uncomplicated
[2019-10-26] MEDS: MIRTAZAPINE TAB 15 MG TAB PO SCH (20:47)
[2019-10-26] MEDS: ROPINIROLE HCL 0.25 MG TABLET PO SCH (20:47)
[2019-10-27] MEDS: TRAMADOL HCL 50 MG TABLET PO PRN ×4 (03:53→22:04)
[2019-10-27] MEDS: ACETAMINOPHEN 325 MG TAB PO PRN (07:26)
[2019-10-27] MEDS: LOPERAMIDE HCL 2 MG CAP PO PRN ×3 (07:27→22:04)
[2019-10-27 07:44] LABS: Hematocrit (blood only) 31.1 % (37-47); Hemoglobin 9.4 g/dL (12.0-16.0); Mean Corpuscular Hemoglobin 24.4 pg (25-34); Mean Corpuscular Hgb Conc 30.2 g/dL (32-36); Mean Corpuscular Volume 80.6 fL (80-100); RDW Coefficient of Variation 19.5 % (11.5-14.5); RDW Standard Deviation 57.1 fL (36.4-46.3); Red Blood Count 3.86 M/uL (4.2-5.4); White Blood Count 1.53 K/uL (4.8-10.8)
[2019-10-27 08:10] LABS: Mean Platelet Volume 9.8 fL (7.4-10.4); Platelet Count 59 K/uL (130-400)
[2019-10-27 08:24] LABS: BUN Creatinine Ratio 16.3 (10-20); Calcium 8.3 mg/dl (8.5-10.1); Creatinine Clr Calc Pharmacy 103.1 ml/min; Est GFR (African American) 125.5; Est GFR (Non-African American) 108.3; Magnesium 1.7 mg/dl (1.8-2.4); Potassium 3.9 mmol/L (3.5-5.1)
[2019-10-27] MEDS: ONDANSETRON INJ 2 MG/ML 2 ML VIAL IV PRN ×2 (08:43→18:10)
[2019-10-27] MEDS: MAGNESIUM CHLORIDE 64MG DELAYED REL TAB PO SCH ×2 (09:40→20:42)
[2019-10-27] MEDS: THIAMINE HCL 100 MG TAB PO SCH (09:41)
[2019-10-27] MEDS: MULTIVITAMIN TAB PO SCH (09:41)
[2019-10-27] MEDS: CITALOPRAM 20 MG TAB PO SCH (09:41)
[2019-10-27] MEDS: FOLIC ACID 1 MG TAB PO SCH (09:41)
[2019-10-27] MEDS: RIFAXIMIN 550 MG TABLET PO SCH ×3 (09:41→20:43)
[2019-10-27] MEDS: PANTOprazole 40 MG TAB PO SCH (09:41)
[2019-10-27] MEDS: GABAPENTIN 400 MG CAP PO SCH ×3 (09:42→20:44)
[2019-10-27] MEDS: carvediloL 3.125 MG TAB PO SCH ×2 (09:42→20:42)
[2019-10-27] MEDS ORDERED: MAGNESIUM SULFATE / D5W 1 GM/100 ML BAG IV ONE (10:30)
[2019-10-27] MEDS: COLESTIPOL HCL 1 GM TAB PO SCH ×2 (12:53→20:43)
--- NOTE | 2019-10-27 15:57 | Hospitalist Progress Note ---
Date of Service October 27, 2019 Assessment & Plan (1) Acute GI bleeding: Presented with coffee ground emesis, Melena H/O esophageal varices --CT ABD:Study limited by the lack of intravenous and oral contrast. Left-sided nephrolithiasis. No hydronephrosis. No ureteral calculi identified. Postsurgical changes of a gastric bypass. No evidence of bowel obstruction. No evidence of free air. Borderline minimal sigmoid and left colonic wall thickening. Hepatic steatosis. Interval resolution of the previously identified ascites. --Monitor CBC --Counseled to quit alcohol use --Appreciate GI input --Continue PPI, beta-gayle --Continue Ceftriaxone for SBP prophylaxis --Needs follow-up with GI as outpatient (GI group at [facility] in [place]) --Hb stable --No recurrence of bleeding currently UTI-POA Urine Culture: Klebsiella Blood Culture: No growth to date Completed ceftriaxone course (2) Alcohol withdrawal: On Alcohol withdrawal Protocol Continue thiamine, folic acid Will benefit from alcohol rehab placement Case management to help with discharge planning No withdrawal symptoms currently Waiting for rehab placement (3) Alcoholism with alcohol dependence: As above (4) Diarrhea: Chronic C diff negative. In setting of chronic alcohol use Follows with GI as outpatient Continue colestipol Diarrhea slowly improving Pancytopenia In setting of alcohol use No bleeding issues Monitor CBC daily (5) Hypokalemia: Hypokalemia Hypomagnesemia Secondary to chronic diarrhea Replete electrolytes as needed (6) COVID-19 ruled out: SARS-CoV-2 PCR negative 10/19. (7) DVT prophylaxis: SCDs Re: GI bleeding Ambulate. (8) Discharge planning issues: Waiting for rehab placement Case management to help with discharge planning Admission and Anticipated Discharge Date Admission Date: October 19, 2019 Subjective Patient is seen and examined at bedside States feeling better today Requesting regular diet Diarrhea is slowly improving Denies nausea, vomiting, abdominal pain, chest pain, SOB Waiting for rehab placement Offers no other complaints Review of Systems Review of Systems: All systems reviewed & are unremarkable except as noted in HPI & below Physical Exam Physical Exam: Physical Exam: Vitals signs as noted above General Appearance:Moderately built and nourished, no apparent distress Head: normocephalic, Atraumatic Eyes: normal inspection, EOMI Neck: supple, Trachea midline Respiratory/Chest: Normal breath sounds, CTA Cardiovascular: S1, S2, No murmur Abdomen/GI:Soft, non tender, Bowel sounds present Extremities/Musculoskelatal:normal inspection, no edema Neurologic/Psych:AAOX3, grossly no focal neurological deficits Skin: normal color, warm Results & Data Results & Data ([facility]) Vital Signs (Past 12 Hours) Vital Signs Temp Pulse Resp BP Pulse Ox 10/27/19 07:49 37.0 C 68 20 146/86 H 98 Laboratory Results Short CBC 10/27/19 Range/Units 07:15 WBC 1.53 L (4.8-10.8) K/uL Hgb 9.4 L (12.0-16.0) g/dL Hct 31.1 L (37-47) % Plt Count 59 L (130-400) K/uL BMP 10/27/19 07:15 Sodium 140 Potassium 3.9 D Chloride 109 H Carbon Dioxide 23 BUN 8 Creatinine 0.51 L Glucose 95 Calcium 8.3 L (1) Alcoholism with alcohol dependence Complication of substance-induced condition: uncomplicated Substance use status: in withdrawal Qualified Code(s): F10.230 - Alcohol dependence with withdrawal, uncomplicated
[2019-10-27] MEDS: cefTRIAXone SODIUM 1,000 MG in DEXTROSE 5% 50 ML IV SCH (18:10)
[2019-10-27] MEDS: ROPINIROLE HCL 0.25 MG TABLET PO SCH (20:43)
[2019-10-27] MEDS: MIRTAZAPINE TAB 15 MG TAB PO SCH (20:44)
[2019-10-28] MEDS: ACETAMINOPHEN 325 MG TAB PO PRN ×2 (02:08→07:34)
[2019-10-28] MEDS: TRAMADOL HCL 50 MG TABLET PO PRN ×4 (04:04→22:09)
[2019-10-28] MEDS: MULTIVITAMIN TAB PO SCH (07:34)
[2019-10-28] MEDS: MAGNESIUM CHLORIDE 64MG DELAYED REL TAB PO SCH ×2 (07:34→20:32)
[2019-10-28] MEDS: GABAPENTIN 400 MG CAP PO SCH ×3 (07:34→20:32)
[2019-10-28] MEDS: LOPERAMIDE HCL 2 MG CAP PO PRN ×3 (07:34→22:09)
[2019-10-28] MEDS: carvediloL 3.125 MG TAB PO SCH ×2 (07:35→20:33)
[2019-10-28] MEDS: PANTOprazole 40 MG TAB PO SCH (07:35)
[2019-10-28] MEDS: THIAMINE HCL 100 MG TAB PO SCH (07:35)
[2019-10-28] MEDS: FOLIC ACID 1 MG TAB PO SCH (07:35)
[2019-10-28] MEDS: CITALOPRAM 20 MG TAB PO SCH (07:35)
[2019-10-28] MEDS: RIFAXIMIN 550 MG TABLET PO SCH ×3 (07:35→20:32)
[2019-10-28 07:55] LABS: Hematocrit (blood only) 32.7 % (37-47); Hemoglobin 9.4 g/dL (12.0-16.0)
[2019-10-28 08:21] LABS: BUN Creatinine Ratio 21.9 (10-20); Calcium 8.7 mg/dl (8.5-10.1); Creatinine Clr Calc Pharmacy 107.3 ml/min; Est GFR (African American) 127.1; Est GFR (Non-African American) 109.7; Magnesium 1.8 mg/dl (1.8-2.4); Potassium 3.8 mmol/L (3.5-5.1)
[2019-10-28] MEDS ORDERED: GLUCOSE 40% GEL 15 GM TUBE PO PRN (08:47)
[2019-10-28] MEDS ORDERED: GLUCAGON FOR INJ 1 MG VIAL SQ PRN (08:47)
[2019-10-28] MEDS ORDERED: CARBOHYDRATES FOR HYPOGLYCEMIA PO PRN (08:47)
[2019-10-28] MEDS ORDERED: GLUCOSE 10 TABS/TUBE PO PRN (08:47)
[2019-10-28] MEDS ORDERED: DEXTROSE 50% 50 ML SYRINGE IV PRN (08:47)
[2019-10-28] MEDS: ONDANSETRON INJ 2 MG/ML 2 ML VIAL IV PRN ×2 (09:03→17:46)
[2019-10-28] MEDS: COLESTIPOL HCL 1 GM TAB PO SCH ×2 (09:03→20:34)
--- NOTE | 2019-10-28 14:52 | Hospitalist Progress Note ---
Date of Service October 28, 2019 Assessment & Plan (1) Acute GI bleeding: Presented with coffee ground emesis, Melena H/O esophageal varices --CT ABD:Study limited by the lack of intravenous and oral contrast. Left-sided nephrolithiasis. No hydronephrosis. No ureteral calculi identified. Postsurgical changes of a gastric bypass. No evidence of bowel obstruction. No evidence of free air. Borderline minimal sigmoid and left colonic wall thickening. Hepatic steatosis. Interval resolution of the previously identified ascites. --Monitor CBC --Counseled to quit alcohol use --Appreciate GI input --Completed Ceftriaxone course for SBP prophylaxis --Needs follow-up with GI as outpatient (GI group at [facility] in [place]) --Hb stable --No recurrence of bleeding currently ----Continue PPI, beta-gayle UTI-POA Urine Culture: Klebsiella Blood Culture: No growth to date Completed ceftriaxone course Hypoglycemia On hypoglycemia protocol Monitor BGs (2) Alcohol withdrawal: On Alcohol withdrawal Protocol Continue thiamine, folic acid Case management to help with discharge planning No withdrawal symptoms currently Waiting for rehab placement (3) Alcoholism with alcohol dependence: As above (4) Diarrhea: Chronic Diarrhea C diff negative. In setting of chronic alcohol use Follows with GI as outpatient Continue colestipol Persistent diarrhea Pancytopenia In setting of alcohol use No bleeding issues Monitor CBC daily (5) Hypokalemia: Hypokalemia Hypomagnesemia Secondary to chronic diarrhea Replete electrolytes as needed (6) COVID-19 ruled out: SARS-CoV-2 PCR negative 10/19. (7) DVT prophylaxis: SCDs Re: GI bleeding Ambulate. (8) Discharge planning issues: Waiting for rehab placement Case management to help with discharge planning Admission and Anticipated Discharge Date Admission Date: October 19, 2019 Subjective Patient is seen and examined at bedside Had an episode of nausea, vomiting this morning Hypoglycemia on labs noted Ongoing diarrhea per patient Denies chest pain, SOB, dizziness, abdominal pain Review of Systems Review of Systems: All systems reviewed & are unremarkable except as noted in HPI & below Physical Exam Physical Exam: Physical Exam: Vitals signs as noted above General Appearance:Moderately built and nourished, no apparent distress Head: normocephalic, Atraumatic Eyes: normal inspection, EOMI Neck: supple, Trachea midline Respiratory/Chest: Normal breath sounds, CTA Cardiovascular: S1, S2, No murmur Abdomen/GI:Soft, non tender, Bowel sounds present Extremities/Musculoskelatal:normal inspection, no edema Neurologic/Psych:AAOX3, grossly no focal neurological deficits Skin: normal color, warm Results & Data Results & Data ([facility]) Vital Signs (Past 12 Hours) Vital Signs Temp Pulse Resp BP Pulse Ox 10/28/19 07:28 36.6 C 61 20 101/68 98 Laboratory Results Short CBC 10/28/19 Range/Units 07:16 Hgb 9.4 L (12.0-16.0) g/dL Hct 32.7 L (37-47) % BMP 10/28/19 07:16 Sodium 143 Potassium 3.8 Chloride 114 H Carbon Dioxide 22 BUN 11 Creatinine 0.49 L Glucose 62 L Calcium 8.7 (1) Alcoholism with alcohol dependence Complication of substance-induced condition: uncomplicated Substance use status: in withdrawal Qualified Code(s): F10.230 - Alcohol dependence with withdrawal, uncomplicated
[2019-10-28] MEDS: ROPINIROLE HCL 0.25 MG TABLET PO SCH (20:31)
[2019-10-28] MEDS: MIRTAZAPINE TAB 15 MG TAB PO SCH (20:33)
[2019-10-29] MEDS: TRAMADOL HCL 50 MG TABLET PO PRN ×4 (04:15→22:15)
[2019-10-29 07:03] LABS: Hematocrit (blood only) 29.6 % (37-47); Hemoglobin 8.8 g/dL (12.0-16.0); Mean Corpuscular Hemoglobin 24.2 pg (25-34); Mean Corpuscular Hgb Conc 29.7 g/dL (32-36); Mean Corpuscular Volume 81.5 fL (80-100); RDW Coefficient of Variation 19.5 % (11.5-14.5); Red Blood Count 3.63 M/uL (4.2-5.4); White Blood Count 1.79 K/uL (4.8-10.8)
[2019-10-29 07:06] LABS: Mean Platelet Volume 9.9 fL (7.4-10.4); Platelet Count 78 K/uL (130-400)
[2019-10-29] MEDS: ACETAMINOPHEN 325 MG TAB PO PRN (07:16)
[2019-10-29] MEDS: LOPERAMIDE HCL 2 MG CAP PO PRN ×2 (07:16→16:10)
[2019-10-29 07:49] LABS: BUN Creatinine Ratio 23.5 (10-20); Calcium 8.4 mg/dl (8.5-10.1); Creatinine Clr Calc Pharmacy 107.3 ml/min; Est GFR (African American) 127.1; Est GFR (Non-African American) 109.7; Potassium 3.8 mmol/L (3.5-5.1)
[2019-10-29] MEDS: ONDANSETRON INJ 2 MG/ML 2 ML VIAL IV PRN ×2 (08:25→17:58)
[2019-10-29] MEDS: GABAPENTIN 400 MG CAP PO SCH ×3 (09:04→20:27)
[2019-10-29] MEDS: MULTIVITAMIN TAB PO SCH (09:04)
[2019-10-29] MEDS: MAGNESIUM CHLORIDE 64MG DELAYED REL TAB PO SCH ×2 (09:04→20:27)
[2019-10-29] MEDS: carvediloL 3.125 MG TAB PO SCH ×2 (09:04→20:26)
[2019-10-29] MEDS: RIFAXIMIN 550 MG TABLET PO SCH ×3 (09:04→20:26)
[2019-10-29] MEDS: FOLIC ACID 1 MG TAB PO SCH (09:05)
[2019-10-29] MEDS: THIAMINE HCL 100 MG TAB PO SCH (09:05)
[2019-10-29] MEDS: PANTOprazole 40 MG TAB PO SCH (09:05)
[2019-10-29] MEDS: CITALOPRAM 20 MG TAB PO SCH (09:05)
[2019-10-29] MEDS: COLESTIPOL HCL 1 GM TAB PO SCH ×2 (11:04→20:26)
--- NOTE | 2019-10-29 16:04 | Hospitalist Progress Note ---
Date of Service October 29, 2019 Assessment & Plan (1) Acute GI bleeding: Presented with coffee ground emesis, Melena H/O esophageal varices --CT ABD:Study limited by the lack of intravenous and oral contrast. Left-sided nephrolithiasis. No hydronephrosis. No ureteral calculi identified. Postsurgical changes of a gastric bypass. No evidence of bowel obstruction. No evidence of free air. Borderline minimal sigmoid and left colonic wall thickening. Hepatic steatosis. Interval resolution of the previously identified ascites. --Monitor CBC --Counseled to quit alcohol use --Appreciate GI input --Completed Ceftriaxone course for SBP prophylaxis --Needs follow-up with GI as outpatient (GI group at [facility] in [place]) --Hb stable --No recurrence of bleeding currently ----Continue PPI, beta-gayle --Continue current management UTI-POA Urine Culture: Klebsiella Blood Culture: No growth to date Completed ceftriaxone course Hypoglycemia On hypoglycemia protocol Continue to monitor BGs Mostly asymptomatic (2) Alcohol withdrawal: On Alcohol withdrawal Protocol Continue thiamine, folic acid Case management to help with discharge planning No withdrawal symptoms currently Waiting for rehab placement (3) Alcoholism with alcohol dependence: As above (4) Diarrhea: Chronic Diarrhea C diff negative. In setting of chronic alcohol use Follows with GI as outpatient Continue colestipol Persistent diarrhea Pancytopenia In setting of alcohol use No bleeding issues Monitor CBC daily (5) Hypokalemia: Hypokalemia Hypomagnesemia Secondary to chronic diarrhea Replete electrolytes as needed (6) COVID-19 ruled out: SARS-CoV-2 PCR negative 10/19. (7) DVT prophylaxis: SCDs Re: GI bleeding Ambulate. (8) Discharge planning issues: Waiting for rehab placement Case management to help with discharge planning Admission and Anticipated Discharge Date Admission Date: October 19, 2019 Subjective Patient is seen and examined at bedside Hypoglycemic this morning Reports nausea but no vomiting Waiting for rehab placement Offers no other complaints Denies chest pain, SOB, dizziness, abdominal pain Review of Systems Review of Systems: All systems reviewed & are unremarkable except as noted in HPI & below Physical Exam Physical Exam: Physical Exam: Vitals signs as noted above General Appearance:Moderately built and nourished, no apparent distress Head: normocephalic, Atraumatic Eyes: normal inspection, EOMI Neck: supple, Trachea midline Respiratory/Chest: Normal breath sounds, CTA Cardiovascular: S1, S2, + systolic murmur Abdomen/GI:Soft, non tender, Bowel sounds present Extremities/Musculoskelatal:normal inspection, no edema Neurologic/Psych:AAOX3, grossly no focal neurological deficits Skin: normal color, warm Results & Data Results & Data ([facility]) Vital Signs (Past 12 Hours) Vital Signs Temp Pulse Resp BP Pulse Ox 10/29/19 14:40 37.0 C 74 16 131/85 96 10/29/19 07:16 36.9 C 64 16 127/86 98 Laboratory Results Short CBC 10/29/19 Range/Units 06:48 WBC 1.79 L (4.8-10.8) K/uL Hgb 8.8 L (12.0-16.0) g/dL Hct 29.6 L (37-47) % Plt Count 78 L (130-400) K/uL BMP 10/29/19 06:48 Sodium 141 Potassium 3.8 Chloride 112 H Carbon Dioxide 24 BUN 11 Creatinine 0.49 L Glucose 52 L* Calcium 8.4 L (1) Alcoholism with alcohol dependence Complication of substance-induced condition: uncomplicated Substance use status: in withdrawal Qualified Code(s): F10.230 - Alcohol dependence with withdrawal, uncomplicated
[2019-10-29] MEDS: MIRTAZAPINE TAB 15 MG TAB PO SCH (20:26)
[2019-10-29] MEDS: ROPINIROLE HCL 0.25 MG TABLET PO SCH (20:27)
[2019-10-30] MEDS: TRAMADOL HCL 50 MG TABLET PO PRN ×4 (04:18→22:40)
[2019-10-30] MEDS: ACETAMINOPHEN 325 MG TAB PO PRN (07:09)
[2019-10-30] MEDS: LOPERAMIDE HCL 2 MG CAP PO PRN ×2 (07:09→16:01)
[2019-10-30 07:35] LABS: Hematocrit (blood only) 31.3 % (37-47); Hemoglobin 9.2 g/dL (12.0-16.0)
[2019-10-30 07:47] LABS: BUN Creatinine Ratio 24.5 (10-20); Calcium 8.6 mg/dl (8.5-10.1); Creatinine Clr Calc Pharmacy 105.2 ml/min; Est GFR (African American) 126.3; Magnesium 1.7 mg/dl (1.8-2.4)
[2019-10-30] MEDS: ONDANSETRON INJ 2 MG/ML 2 ML VIAL IV PRN ×3 (09:25→23:28)
[2019-10-30] MEDS ORDERED: MAGNESIUM SULFATE / D5W 1 GM/100 ML BAG IV ONE (09:30)
[2019-10-30] MEDS: THIAMINE HCL 100 MG TAB PO SCH (10:15)
[2019-10-30] MEDS: MULTIVITAMIN TAB PO SCH (10:15)
[2019-10-30] MEDS: GABAPENTIN 400 MG CAP PO SCH ×3 (10:16→20:31)
[2019-10-30] MEDS: carvediloL 3.125 MG TAB PO SCH ×3 (10:16→20:32)
[2019-10-30] MEDS: COLESTIPOL HCL 1 GM TAB PO SCH ×2 (10:17→20:31)
[2019-10-30] MEDS: RIFAXIMIN 550 MG TABLET PO SCH ×3 (10:17→20:31)
[2019-10-30] MEDS: MAGNESIUM CHLORIDE 64MG DELAYED REL TAB PO SCH ×2 (10:18→20:32)
[2019-10-30] MEDS: CITALOPRAM 20 MG TAB PO SCH (10:18)
[2019-10-30] MEDS: FOLIC ACID 1 MG TAB PO SCH (10:18)
[2019-10-30] MEDS: PANTOprazole 40 MG TAB PO SCH (10:18)
[2019-10-30] MEDS ORDERED: DICYCLOMINE HCL 10 MG CAP PO ONE (18:30)
--- NOTE | 2019-10-30 18:33 | Hospitalist Progress Note ---
Date of Service October 30, 2019 Assessment & Plan (1) Acute GI bleeding: Presented with coffee ground emesis, Melena H/O esophageal varices --CT ABD:Study limited by the lack of intravenous and oral contrast. Left-sided nephrolithiasis. No hydronephrosis. No ureteral calculi identified. Postsurgical changes of a gastric bypass. No evidence of bowel obstruction. No evidence of free air. Borderline minimal sigmoid and left colonic wall thickening. Hepatic steatosis. Interval resolution of the previously identified ascites. --Monitor CBC --Counseled to quit alcohol use --Appreciate GI input --Completed Ceftriaxone course for SBP prophylaxis --Needs follow-up with GI as outpatient (GI group at [facility] in [place]) --Hb stable --Continue PPI, beta-gayle --No recurrence of bleeding currently --Hb stable UTI-POA Urine Culture: Klebsiella Blood Culture: No growth to date Completed ceftriaxone course Hypoglycemia On hypoglycemia protocol Continue to monitor BGs Asymptomatic (2) Alcohol withdrawal: Continue thiamine, folic acid No withdrawal symptoms currently Waiting for rehab placement Case management to help with discharge planning (3) Alcoholism with alcohol dependence: As above (4) Diarrhea: Chronic Diarrhea C diff negative. In setting of chronic alcohol use Follows with GI as outpatient Continue colestipol Pancytopenia In setting of alcohol use No bleeding issues Monitor CBC daily (5) Hypokalemia: Hypokalemia Hypomagnesemia Secondary to chronic diarrhea Replete electrolytes as needed (6) COVID-19 ruled out: SARS-CoV-2 PCR negative 10/19. (7) DVT prophylaxis: SCDs Re: GI bleeding Ambulate. (8) Discharge planning issues: Waiting for rehab placement Case management to help with discharge planning Admission and Anticipated Discharge Date Admission Date: October 19, 2019 Subjective Patient is seen and examined at bedside Reports intermittent nausea associated with abdominal cramping No other complaints Waiting for rehab placement Denies chest pain, SOB, dizziness, abdominal pain Hb stable Review of Systems Review of Systems: All systems reviewed & are unremarkable except as noted in HPI & below Physical Exam Physical Exam: Physical Exam: Vitals signs as noted above General Appearance:Moderately built and nourished, no apparent distress Head: normocephalic, Atraumatic Eyes: normal inspection, EOMI Neck: supple, Trachea midline Respiratory/Chest: Normal breath sounds, CTA Cardiovascular: S1, S2, + systolic murmur Abdomen/GI:Soft, non tender, Bowel sounds present Extremities/Musculoskelatal:normal inspection, no edema Neurologic/Psych:AAOX3, grossly no focal neurological deficits Skin: normal color, warm Results & Data Results & Data ([facility]) Vital Signs (Past 12 Hours) Vital Signs Temp Pulse Resp BP BP Pulse Ox 10/30/19 10:20 59 L 97/63 L 10/30/19 07:10 36.6 C 62 18 112/73 97 Laboratory Results Short CBC 10/30/19 Range/Units 06:31 Hgb 9.2 L (12.0-16.0) g/dL Hct 31.3 L (37-47) % BMP 10/30/19 06:31 Sodium 141 Potassium 4.0 Chloride 112 H Carbon Dioxide 23 BUN 12 Creatinine 0.50 L Glucose 69 L Calcium 8.6 (1) Alcoholism with alcohol dependence Complication of substance-induced condition: uncomplicated Substance use status: in withdrawal Qualified Code(s): F10.230 - Alcohol dependence with withdrawal, uncomplicated
[2019-10-30] MEDS: ROPINIROLE HCL 0.25 MG TABLET PO SCH (20:31)
[2019-10-30] MEDS: MIRTAZAPINE TAB 15 MG TAB PO SCH (20:31)
[2019-10-31] MEDS: TRAMADOL HCL 50 MG TABLET PO PRN ×4 (04:43→22:13)
[2019-10-31 07:00] LABS: Hemoglobin 8.9 g/dL (12.0-16.0); Mean Corpuscular Hemoglobin 23.7 pg (25-34); Mean Corpuscular Hgb Conc 29.7 g/dL (32-36); Mean Corpuscular Volume 79.8 fL (80-100); RDW Coefficient of Variation 19.6 % (11.5-14.5); RDW Standard Deviation 57.2 fL (36.4-46.3); Red Blood Count 3.76 M/uL (4.2-5.4); White Blood Count 2.18 K/uL (4.8-10.8)
[2019-10-31 07:21] LABS: Mean Platelet Volume 10.2 fL (7.4-10.4); Platelet Count 96 K/uL (130-400)
[2019-10-31 07:41] LABS: BUN Creatinine Ratio 28.1 (10-20); Calcium 8.5 mg/dl (8.5-10.1); Creatinine Clr Calc Pharmacy 114.3 ml/min; Est GFR (African American) 129.8; Magnesium 1.7 mg/dl (1.8-2.4); Potassium 3.7 mmol/L (3.5-5.1)
[2019-10-31] MEDS: LOPERAMIDE HCL 2 MG CAP PO PRN (07:56)
[2019-10-31] MEDS: ACETAMINOPHEN 325 MG TAB PO PRN (07:56)
[2019-10-31] MEDS: CITALOPRAM 20 MG TAB PO SCH (07:57)
[2019-10-31] MEDS: carvediloL 3.125 MG TAB PO SCH ×2 (07:57→20:14)
[2019-10-31] MEDS: RIFAXIMIN 550 MG TABLET PO SCH ×3 (07:58→20:14)
[2019-10-31] MEDS: GABAPENTIN 400 MG CAP PO SCH ×3 (07:58→20:15)
[2019-10-31] MEDS: THIAMINE HCL 100 MG TAB PO SCH (07:58)
[2019-10-31] MEDS: MULTIVITAMIN TAB PO SCH (07:58)
[2019-10-31] MEDS: PANTOprazole 40 MG TAB PO SCH (07:58)
[2019-10-31] MEDS: FOLIC ACID 1 MG TAB PO SCH (07:58)
[2019-10-31] MEDS: MAGNESIUM CHLORIDE 64MG DELAYED REL TAB PO SCH ×2 (07:58→20:14)
[2019-10-31] MEDS: ONDANSETRON INJ 2 MG/ML 2 ML VIAL IV PRN ×2 (09:08→15:25)
[2019-10-31] MEDS: COLESTIPOL HCL 1 GM TAB PO SCH ×2 (09:52→20:15)
[2019-10-31] MEDS: DICYCLOMINE HCL 10 MG CAP PO PRN (15:25)
--- NOTE | 2019-10-31 19:20 | Hospitalist Progress Note ---
Date of Service October 31, 2019 Assessment & Plan (1) Acute GI bleeding: Patient reported several episodes of coffee ground emesis. Hgb 12.1 --> 9.8 (after IV fluids) --> --> 8.9. UGI bleeding could be secondary to esophagitis, gastritis, PUD, MW tear, esophageal varices. Received IV pantoprazole. GI consulted. EGD 10/20 showed large nonbleeding esophageal varices, portal hypertensive g astropathy treated with APC, normal duodenum. GI recommendations: pantoprazole 40 mg daily carvedilol 3.25 mg BID ceftriaxone 1 gm daily x 7 days for SBP prophylaxis (completed). May need repeat EGD if Hgb continues to fall. (2) Alcohol withdrawal: Received thiamine. Started on alcohol withdrawal protocol with chlordiazepoxide + lorazepam. Transitioned to gabapentin protocol. (3) Alcoholism with alcohol dependence: Ongoing challenges with alcoholism. Continue support / counseling. (4) Diarrhea: Etiology uncertain. C diff negative. May be due to irritable bowel syndrome or chronic pancreatic insufficiency. Further evaluation / management per GI. Possibility of dumping syndrome suggested by [employer] and dietary recommendations made. (5) Hypokalemia: K as low as 3.0. Replaced. Follow. (6) Hypoglycemia: Fasting hypoglycemia. ? due to liver disease. Possibility of dumping syndrome suggested by [employer] and dietary recommendations made. Follow. (7) COVID-19 ruled out: SARS-CoV-2 PCR negative 10/19. (8) DVT prophylaxis: No anticoagulants because of GI bleeding. SCD's. Ambulate. (9) Discharge planning issues: Discharge disposition to be determined. Case Management consulted. Medical follow-up with Dr. Ge. Admission and Anticipated Discharge Date Admission Date: October 19, 2019 Subjective Recheck for multiple problems. Patient seen in their room around 1110. Generally doing better. No hallucinations, shakes, sweats. Having trouble sleeping. No further nausea or vomiting. Ongoing loose stools. Lower extremity pain, tramadol helps. Review of Systems: Constitutional- no fever. Cardiac- no chest pain. Pulmonary- no cough or SOB. GI- as noted above. - no urinary symptoms. Otherwise, as noted above. Physical Exam Constitutional: no acute distress Eyes: + anicteric sclerae Respiratory: no respiratory distress Auscultation: lungs clear to auscu ltation bilaterally Cardiovascular: Rate/Rhythm: regular rate and regular rhythm Heart Sounds: + murmur (II/ sys murmur at base) Vessels: no JVD Extremities: no calf tenderness and no edema Gastrointestinal (Abdomen): normal bowel sounds, soft, nontender, no hepatosplenomegaly Inspection/Auscultation: normal bowel sounds Percussion/Palpation: abdomen soft; abdomen nontender Musculoskeletal: Extremities: no cyanosis Skin: no rashes, warm and dry Psychiatric: Orientation: alert and oriented x 3 Affect: + anxious affect (improved) Results & Data Results & Data ([facility]) Vital Signs (Past 12 Hours) Vital Signs Temp Pulse Resp BP Pulse Ox 10/31/19 19:03 37.0 C 65 18 124/80 97 10/31/19 15:46 36.9 C 75 20 108/73 98 Laboratory Results 10/31/19 06:43 10/31/19 06:43 (1) Alcoholism with alcohol dependence Complication of substance-induced condition: uncomplicated Substance use status: in withdrawal Qualified Code(s): F10.230 - Alcohol dependence with withdrawal, uncomplicated
[2019-10-31] MEDS: TRAZODONE HCL 50 MG TAB PO SCH (20:13)
[2019-10-31] MEDS: MIRTAZAPINE TAB 15 MG TAB PO SCH (20:13)
[2019-10-31] MEDS: ROPINIROLE HCL 0.25 MG TABLET PO SCH (20:13)
[2019-11-01] MEDS: TRAMADOL HCL 50 MG TABLET PO PRN ×4 (04:29→22:14)
[2019-11-01] MEDS: ACETAMINOPHEN 325 MG TAB PO PRN ×2 (07:52→13:22)
[2019-11-01] MEDS: carvediloL 3.125 MG TAB PO SCH ×2 (07:53→21:10)
[2019-11-01] MEDS: DICYCLOMINE HCL 10 MG CAP PO PRN (07:55)
[2019-11-01] MEDS: MAGNESIUM CHLORIDE 64MG DELAYED REL TAB PO SCH ×2 (07:56→21:12)
[2019-11-01] MEDS: GABAPENTIN 400 MG CAP PO SCH ×3 (07:56→21:10)
[2019-11-01] MEDS: RIFAXIMIN 550 MG TABLET PO SCH ×3 (07:56→21:12)
[2019-11-01] MEDS: PANTOprazole 40 MG TAB PO SCH (07:56)
[2019-11-01] MEDS: CITALOPRAM 20 MG TAB PO SCH (07:56)
[2019-11-01] MEDS: MULTIVITAMIN TAB PO SCH (07:57)
[2019-11-01] MEDS: FOLIC ACID 1 MG TAB PO SCH (07:57)
[2019-11-01] MEDS: THIAMINE HCL 100 MG TAB PO SCH (07:57)
[2019-11-01] MEDS: ONDANSETRON INJ 2 MG/ML 2 ML VIAL IV PRN ×3 (09:07→22:07)
[2019-11-01] MEDS: COLESTIPOL HCL 1 GM TAB PO SCH ×2 (09:12→23:56)
--- NOTE | 2019-11-01 20:58 | Hospitalist Progress Note ---
Date of Service November 01, 2019 Assessment & Plan (1) Acute GI bleeding: Patient reported several episodes of coffee ground emesis. Hgb 12.1 --> 9.8 (after IV fluids) --> --> 8.9. UGI bleeding could be secondary to esophagitis, gastritis, PUD, MW tear, esophageal varices. Received IV pantoprazole. GI consulted. EGD 10/20 showed large nonbleeding esophageal varices, portal hypertensive g astropathy treated with APC, normal duodenum. GI recommendations: pantoprazole 40 mg daily carvedilol 3.25 mg BID ceftriaxone 1 gm daily x 7 days for SBP prophylaxis (completed). May need repeat EGD if Hgb continues to fall. (2) Alcohol withdrawal: Received thiamine. Started on alcohol withdrawal protocol with chlordiazepoxide + lorazepam. Transitioned to gabapentin protocol. Symptoms improved. (3) Alcoholism with alcohol dependence: Ongoing challenges with alcoholism. Continue support / counseling. (4) Diarrhea: Etiology uncertain. C diff negative. May be due to irritable bowel syndrome or chronic pancreatic insufficiency. Started on colestipol. Further evaluation / management per GI. Possibility of dumping syndrome suggested by Gis Developer and dietary recommendations made. (5) Hypokalemia: K as low as 3.0. Replaced. K 10/30 = 3.7. Follow. (6) Hypoglycemia: Several episodes of fasting hypoglycemia. ? due to liver disease. Possibility of dumping syndrome suggested by Gis Developer and dietary recommendations made. Follow. (7) COVID-19 ruled out: SARS-CoV-2 PCR negative 10/19. (8) DVT prophylaxis: No anticoagulants because of GI bleeding. SCD's. Ambulate. (9) Discharge planning issues: Discharge disposition to be determined. Case Management consulted. Medical follow-up with Dr. Ge. Admission and Anticipated Discharge Date Admission Date: October 19, 2019 Subjective Recheck for multiple problems. Patient seen in their room around 1640. Nausea and vomiting after lunch today. No apparent butch blood or coffee grounds. Ongoing loose stools. No apparent melena or hematochezia. Review of Systems: Constitutional- no fever. Cardiac- no chest pain. Pulmonary- no cough or SOB. GI- as noted above. - no urinary symptoms. Otherwise, as noted above. Physical Exam Constitutional: no acute distress Eyes: + anicteric sclerae Respiratory: no respiratory distress Auscultation: lungs clear to auscultation bilaterally Cardiovascular: Rate/Rhythm: regular rate and regular rhythm Heart Sounds: + murmur (II/ sys murmur at base) Vessels: no JVD Extremities: no calf tenderness and no edema Gastrointestinal (Abdomen): normal bowel sounds, soft, nontender, no hepatosplenomegaly Inspection/Auscultation: normal bowel sounds Percussion/Palpation: abdomen soft; abdomen nontender Musculoskeletal: Extremities: no cyanosis Skin: no rashes, warm and dry Psychiatric: Orientation: alert and oriented x 3 Results & Data Results & Data ([facility]) Vital Signs (Past 12 Hours) Vital Signs Temp Pulse Resp BP Pulse Ox 11/01/19 15:54 36.9 C 62 16 103/67 96 Laboratory Results 10/31/19 06:43 10/31/19 06:43 (1) Alcoholism with alcohol dependence Complication of substance-induced condition: uncomplicated Substance use status: in withdrawal Qualified Code(s): F10.230 - Alcohol dependence with withdrawal, uncomplicated
[2019-11-01] MEDS: MIRTAZAPINE TAB 15 MG TAB PO SCH (21:11)
[2019-11-01] MEDS: ROPINIROLE HCL 0.25 MG TABLET PO SCH (21:11)
[2019-11-01] MEDS: LOPERAMIDE HCL 2 MG CAP PO PRN (21:22)
[2019-11-01] MEDS: TRAZODONE HCL 50 MG TAB PO SCH (22:14)
[2019-11-02] MEDS: DICYCLOMINE HCL 10 MG CAP PO PRN ×3 (00:01→19:11)
[2019-11-02] MEDS: TRAMADOL HCL 50 MG TABLET PO PRN ×4 (04:05→21:54)
[2019-11-02] MEDS: ACETAMINOPHEN 325 MG TAB PO PRN ×2 (04:10→07:42)
[2019-11-02 05:55] LABS: Hematocrit (blood only) 31.6 % (37-47); Hemoglobin 9.2 g/dL (12.0-16.0); Mean Corpuscular Hemoglobin 23.7 pg (25-34); Mean Corpuscular Hgb Conc 29.1 g/dL (32-36); Mean Corpuscular Volume 81.2 fL (80-100); Mean Platelet Volume 9.8 fL (7.4-10.4); Platelet Count 132 K/uL (130-400); RDW Coefficient of Variation 19.9 % (11.5-14.5); RDW Standard Deviation 58.8 fL (36.4-46.3); Red Blood Count 3.89 M/uL (4.2-5.4); White Blood Count 2.37 K/uL (4.8-10.8)
[2019-11-02 06:27] LABS: BUN Creatinine Ratio 28.7 (10-20); Calcium 8.3 mg/dl (8.5-10.1); Creatinine Clr Calc Pharmacy 83.5 ml/min; Magnesium 1.5 mg/dl (1.8-2.4); Potassium 3.6 mmol/L (3.5-5.1)
[2019-11-02] MEDS ORDERED: MAGNESIUM SULFATE / D5W 1 GM/100 ML BAG IV ONE (07:15)
[2019-11-02] MEDS: GABAPENTIN 400 MG CAP PO SCH ×3 (07:38→20:14)
[2019-11-02] MEDS: CITALOPRAM 20 MG TAB PO SCH (07:38)
[2019-11-02] MEDS: LOPERAMIDE HCL 2 MG CAP PO PRN ×2 (07:42→15:59)
[2019-11-02] MEDS: ONDANSETRON INJ 2 MG/ML 2 ML VIAL IV PRN ×2 (07:43→14:04)
[2019-11-02] MEDS: MULTIVITAMIN TAB PO SCH (08:40)
[2019-11-02] MEDS: FOLIC ACID 1 MG TAB PO SCH (08:40)
[2019-11-02] MEDS: THIAMINE HCL 100 MG TAB PO SCH (08:40)
[2019-11-02] MEDS: RIFAXIMIN 550 MG TABLET PO SCH ×3 (08:40→20:14)
[2019-11-02] MEDS: PANTOprazole 40 MG TAB PO SCH (08:40)
[2019-11-02] MEDS: carvediloL 3.125 MG TAB PO SCH ×2 (08:40→20:15)
[2019-11-02] MEDS: MAGNESIUM CHLORIDE 64MG DELAYED REL TAB PO SCH ×2 (08:40→20:14)
[2019-11-02] MEDS: COLESTIPOL HCL 1 GM TAB PO SCH ×2 (10:06→23:05)
[2019-11-02] MEDS ORDERED: MICONAZOLE NITRATE POWDER 43 GM EXT PRN (20:01)
[2019-11-02] MEDS: TRAZODONE HCL 50 MG TAB PO SCH (21:54)
[2019-11-02] MEDS: ROPINIROLE HCL 0.25 MG TABLET PO SCH (21:55)
[2019-11-02] MEDS: MIRTAZAPINE TAB 15 MG TAB PO SCH (21:55)
--- NOTE | 2019-11-02 23:42 | Hospitalist Progress Note ---
Date of Service November 02, 2019 Assessment & Plan (1) Acute GI bleeding: Patient reported several episodes of coffee ground emesis. Hgb 12.1 --> 9.8 (after IV fluids) --> --> 9.2. UGI bleeding could be secondary to esophagitis, gastritis, PUD, MW tear, esophageal varices. Received IV pantoprazole. GI consulted. EGD 10/20 showed large nonbleeding esophageal varices, portal hypertensive gastropathy treated with APC, normal duodenum. GI recommendations: pantoprazole 40 mg daily carvedilol 3.25 mg BID ceftriaxone 1 gm daily x 7 days for SBP prophylaxis (completed). May need repeat EGD if Hgb continues to fall. (2) Alcohol withdrawal: Received thiamine. Started on alcohol withdrawal protocol with chlordiazepoxide + lorazepam. Transitioned to gabapentin protocol. Symptoms improved. (3) Alcoholism with alcohol dependence: Ongoing challenges with alcoholism. Continue support / counseling. (4) Diarrhea: Etiology uncertain. C diff negative. May be due to irritable bowel syndrome or chronic pancreatic insufficiency. Started on colestipol. Further evaluation / management per GI. Possibility of dumping syndrome suggested by Php Architect and dietary recommendations made. (5) Hypokalemia: K as low as 3.0. Replaced. K today = 3.6. Follow. (6) Hypoglycemia: Several episodes of fasting hypoglycemia. ? due to liver disease. Possibility of dumping syndrome suggested by Php Architect and dietary recommendations made. FBS today = 122. Follow. (7) COVID-19 ruled out: SARS-CoV-2 PCR negative 10/19. (8) DVT prophylaxis: No anticoagulants because of GI bleeding. SCD's. Ambulate. (9) Discharge planning issues: Discharge disposition to be determined. Case Management consulted. Medical follow-up with Dr. Ge. Admission and Anticipated Discharge Date Admission Date: October 19, 2019 Subjective Recheck for multiple problems. Patient seen in their room around 1830. Ongoing nausea, ondansetron helps. No further vomiting. Ongoing loose stools. Patient states 8 today. Nursing staff unable to confirm frequency. No apparent melena or hematochezia. Still not sleeping well. Review of Systems: Constitutional- no fever. Cardiac- no chest pain. Pulmonary- no cough or SOB. GI- as noted above. - no urinary symptoms. Otherwise, as noted above. Physical Exam Constitutional: no acute distress Eyes: + anicteric sclerae Respiratory: no respiratory distress Auscultation: lungs clear to auscultation bilaterally Cardiovascular: Rate/Rhythm: regular rate and regular rhythm Heart Sounds: + murmur (II/ sys murmur at base) Vessels: no JVD Extremities: no calf tenderness and no edema Gastrointestinal (Abdomen): normal bowel sounds, soft, nontender, no hepatosplenomegaly Inspection/Auscultation: normal bowel sounds Percussion/Palpation: abdomen soft; abdomen nontender Musculoskeletal: Extremities: no cyanosis Skin: no rashes, warm and dry Psychiatric: Orientation: alert and oriented x 3 Results & Data Results & Data ([facility]) Vital Signs (Past 12 Hours) Vital Signs Temp Pulse Pulse Resp BP BP Pulse Ox 11/02/19 20:10 81 108/74 11/02/19 14:37 36.7 C 69 16 96/64 L 96 (1) Alcoholism with alcohol dependence Complication of substance-induced condition: uncomplicated Substance use status: in withdrawal Qualified Code(s): F10.230 - Alcohol dependence with withdrawal, uncomplicated
[2019-11-03] MEDS: TRAMADOL HCL 50 MG TABLET PO PRN ×3 (04:00→16:22)
[2019-11-03] MEDS: LOPERAMIDE HCL 2 MG CAP PO PRN (07:48)
[2019-11-03] MEDS: ACETAMINOPHEN 325 MG TAB PO PRN (07:49)
[2019-11-03] MEDS: MAGNESIUM CHLORIDE 64MG DELAYED REL TAB PO SCH ×2 (08:42→21:32)
[2019-11-03] MEDS: CITALOPRAM 20 MG TAB PO SCH (08:42)
[2019-11-03] MEDS: PANTOprazole 40 MG TAB PO SCH (08:42)
[2019-11-03] MEDS: GABAPENTIN 400 MG CAP PO SCH ×3 (08:42→21:30)
[2019-11-03] MEDS: carvediloL 3.125 MG TAB PO SCH ×2 (08:42→21:29)
[2019-11-03] MEDS: RIFAXIMIN 550 MG TABLET PO SCH (08:42)
[2019-11-03] MEDS: FOLIC ACID 1 MG TAB PO SCH (08:43)
[2019-11-03] MEDS: DICYCLOMINE HCL 10 MG CAP PO PRN ×2 (08:43→19:29)
[2019-11-03] MEDS: THIAMINE HCL 100 MG TAB PO SCH (08:43)
[2019-11-03] MEDS: MULTIVITAMIN TAB PO SCH (08:43)
[2019-11-03] MEDS: ONDANSETRON INJ 2 MG/ML 2 ML VIAL IV PRN ×2 (10:20→19:29)
[2019-11-03] MEDS: COLESTIPOL HCL 1 GM TAB PO SCH ×2 (10:20→21:31)
--- NOTE | 2019-11-03 18:42 | Hospitalist Progress Note ---
Date of Service November 03, 2019 Assessment & Plan (1) Acute GI bleeding: Patient reported several episodes of coffee ground emesis. Hgb 12.1 --> 9.8 (after IV fluids) --> --> 9.2. UGI bleeding could be secondary to esophagitis, gastritis, PUD, MW tear, esophageal varices. Received IV pantoprazole. GI consulted. EGD 10/20 showed large nonbleeding esophageal varices, portal hypertensive gastropathy treated with APC, normal duodenum. GI recommendations: pantoprazole 40 mg daily carvedilol 3.25 mg BID ceftriaxone 1 gm daily x 7 days for SBP prophylaxis (completed). May need repeat EGD if Hgb continues to fall. (2) Alcohol withdrawal: Received thiamine. Started on alcohol withdrawal protocol with chlordiazepoxide + lorazepam. Transitioned to gabapentin protocol. Symptoms improved. (3) Alcoholism with alcohol dependence: Ongoing challenges with alcoholism. Continue support / counseling. (4) Diarrhea: Etiology uncertain. C diff negative. May be due to irritable bowel syndrome or chronic pancreatic insufficiency. Started on colestipol. Further evaluation / management per GI. Possibility of dumping syndrome suggested by Fire Marshal and dietary recommendations made. (5) Hypokalemia: K as low as 3.0. Replaced. K 11/01 = 3.6. Follow. (6) Hypoglycemia: Several episodes of fasting hypoglycemia. ? due to liver disease. Possibility of dumping syndrome suggested by Fire Marshal and dietary recommendations made. FBS today = 111. Follow. (7) Chronic pain: Chronic pain, multifactorial- back, pelvic, lower extremity pain + fibromyalgia. History of opiate misuse. Admits that she uses alcohol to treat her pain at home. Cannot use NSAID's because of portal gastropathy. Acetaminophen not effective and should be used sparingly anyway. Currently using tramadol with some benefit, but still has severe pain daily. Has been followed by Drs. Newell and Jaswinder. Seen by Pain Management here in September. Has intrathecal pump, but currently not being used. Has left knee pain and was advised to see Ortho for outpatient follow-up. (8) COVID-19 ruled out: SARS-CoV-2 PCR negative 10/19. (9) DVT prophylaxis: No anticoagulants because of GI bleeding. SCD's. Ambulate. (10) Discharge planning issues: Discharge disposition to be determined. Case Management consulted. Medical follow-up with Dr. Ge. Admission and Anticipated Discharge Date Admission Date: October 19, 2019 Subjective Recheck for multiple problems. Patient seen in their room around 1450. Vomiting after lunch; no hematemesis. Frequent loose stools without melena or hematochezia. Not sleeping well. Chronic pain; wondering if she can be seen by Pain Management. Review of Systems: Constitutional- no fever. Cardiac- no chest pain. Pulmonary- no cough or SOB. GI- as noted above. - no urinary symptoms. Otherwise, as noted above. Physical Exam Constitutional: no acute distress Eyes: + anicteric sclerae Respiratory: no respiratory distress Auscultation: lungs clear to auscultation bilaterally Cardiovascular: Rate/Rhythm: regular rate and regular rhythm Heart Sounds: + murmur (II/ sys murmur at base) Vessels: no JVD Extremities: no calf tenderness and no edema Gastrointestinal (Abdomen): normal bowel sounds, soft, nontender, no hepatosplenomegaly Inspection/Auscultation: normal bowel sounds Percussion/Palpation: abdomen soft; abdomen nontender Musculoskeletal: Extremities: no cyanosis Skin: no rashes, warm and dry Psychiatric: Orientation: alert and oriented x 3 Results & Data Results & Data ([facility]) Vital Signs (Past 12 Hours) Vital Signs Temp Pulse Pulse Resp BP Pulse Ox 11/03/19 15:13 36.4 C L 67 16 107/69 97 11/03/19 08:47 36.9 C 60 18 93/55 L 96 (1) Alcoholism with alcohol dependence Complication of substance-induced condition: uncomplicated Substance use status: in withdrawal Qualified Code(s): F10.230 - Alcohol dependence with withdrawal, uncomplicated
[2019-11-03] MEDS: MIRTAZAPINE TAB 15 MG TAB PO SCH (21:29)
[2019-11-03] MEDS: ROPINIROLE HCL 0.25 MG TABLET PO SCH (21:30)
[2019-11-03] MEDS: TRAZODONE HCL 50 MG TAB PO SCH (21:34)
[2019-11-04] MEDS: TRAMADOL HCL 50 MG TABLET PO PRN ×4 (03:57→22:10)
[2019-11-04] MEDS: ONDANSETRON INJ 2 MG/ML 2 ML VIAL IV PRN ×2 (09:19→16:06)
[2019-11-04] MEDS: CITALOPRAM 20 MG TAB PO SCH (10:04)
[2019-11-04] MEDS: carvediloL 3.125 MG TAB PO SCH ×2 (10:04→20:56)
[2019-11-04] MEDS: LOPERAMIDE HCL 2 MG CAP PO PRN ×2 (10:04→16:06)
[2019-11-04] MEDS: PANTOprazole 40 MG TAB PO SCH (10:04)
[2019-11-04] MEDS: MULTIVITAMIN TAB PO SCH (10:06)
[2019-11-04] MEDS: GABAPENTIN 400 MG CAP PO SCH ×3 (10:06→20:56)
[2019-11-04] MEDS: FOLIC ACID 1 MG TAB PO SCH (10:06)
[2019-11-04] MEDS: THIAMINE HCL 100 MG TAB PO SCH (10:07)
[2019-11-04] MEDS: COLESTIPOL HCL 1 GM TAB PO SCH ×2 (10:07→21:58)
[2019-11-04] MEDS: MAGNESIUM CHLORIDE 64MG DELAYED REL TAB PO SCH ×2 (10:07→20:56)
--- NOTE | 2019-11-04 10:50 | Hospitalist Progress Note ---
Date of Service November 04, 2019 Assessment & Plan (1) Acute GI bleeding: Patient reported several episodes of coffee ground emesis. Hgb 12.1 --> 9.8 (after IV fluids) --> --> 9.2. UGI bleeding could be secondary to esophagitis, gastritis, PUD, MW tear, esophageal varices. Received IV pantoprazole. GI consulted. EGD 10/20 showed large nonbleeding esophageal varices, portal hypertensive gastropathy treated with APC, normal duodenum. GI recommendations: pantoprazole 40 mg daily carvedilol 3.25 mg BID ceftriaxone 1 gm daily x 7 days for SBP prophylaxis (completed). May need repeat EGD if Hgb continues to fall. (2) Alcohol withdrawal: Received thiamine. Started on alcohol withdrawal protocol with chlordiazepoxide + lorazepam. Transitioned to gabapentin protocol. Symptoms improved. (3) Alcoholism with alcohol dependence: Ongoing challenges with alcoholism. Continue support / counseling. (4) Diarrhea: Etiology uncertain. C diff negative. May be due to irritable bowel syndrome or chronic pancreatic insufficiency. Started on colestipol. Possibility of dumping syndrome suggested by Associate Professor Of Kinesiology and dietary recommendations made. Patient indicates 8 episodes / day. Further evaluation / management per GI. (5) Hypokalemia: K as low as 3.0. Replaced. K 11/01 = 3.6. Follow. (6) Hypoglycemia: Several episodes of fasting hypoglycemia with fasting blood sugars as low as 48 on 10/30. ? due to liver disease. Possibility of dumping syndrome suggested by Associate Professor Of Kinesiology and dietary recommendations made. FBS today = 102. Follow. (7) Chronic pain: Chronic pain, multifactorial- back, pelvic, lower extremity pain + fibromyalgia. History of opiate misuse. Admits that she uses alcohol to treat her pain at home. Cannot use NSAID's because of portal gastropathy. Acetaminophen not effective and should be used sparingly anyway. Currently using tramadol with some benefit, but still has severe pain daily. Has been followed by Drs. Newell and Jaswinder. Has intrathecal pump, but currently not being used. Has left knee pain and was advised to see Ortho for outpatient follow-up. Seen by Pain Management here in September. Outpatient follow-up with Drs. Newell and Jaswinder recommended at that time. (8) COVID-19 ruled out: SARS-CoV-2 PCR negative 10/19. (9) DVT prophylaxis: No anticoagulants because of GI bleeding. SCD's. Ambulate. (10) Discharge planning issues: Discharge disposition to be determined. Case Management consulted. Medical follow-up with Dr. Ge. Admission and Anticipated Discharge Date Admission Date: October 19, 2019 Subjective Recheck for multiple problems. Patient seen in their room around 1030. Vomiting this morning after breakfast; no hematemesis. Eating cheese and crackers at time of my visit. Frequent loose stools without melena or hematochezia. Patient estimates 8 bowel movements last 24 hours. Review of Systems: Constitutional- no fever. Cardiac- no chest pain. Pulmonary- no cough or SOB. GI- as noted above. - no urinary symptoms. Otherwise, as noted above. Physical Exam Constitutional: no acute distress Eyes: + anicteric sclerae Respiratory: no respiratory distress Auscultation: lungs clear to auscultation bilaterally Cardiovascular: Rate/Rhythm: regular rate and regular rhythm Heart Sounds: + murmur (II/ sys murmur at base) Vessels: no JVD Extremities: no calf tenderness and no edema Gastrointestinal (Abdomen): normal bowel sounds, soft, nontender, no hepatosplenomegaly Inspection/Auscultation: normal bowel sounds Percussion/Palpation: abdomen soft; abdomen nontender Musculoskeletal: Extremities: no cyanosis Skin: no rashes, warm and dry Psychiatric: Orientation: alert and oriented x 3 Affect: euthymic affect Results & Data Results & Data ([facility]) Vital Signs (Past 12 Hours) Vital Signs Temp Pulse Resp BP BP Pulse Ox 11/04/19 07:44 37.2 C 68 16 110/71 97 11/03/19 23:20 37.1 C 86 16 94/57 L 96 (1) Alcoholism with alcohol dependence Complication of substance-induced condition: uncomplicated Substance use status: in withdrawal Qualified Code(s): F10.230 - Alcohol dependence with withdrawal, uncomplicated
[2019-11-04] MEDS: ROPINIROLE HCL 0.25 MG TABLET PO SCH (20:56)
[2019-11-04] MEDS: MIRTAZAPINE TAB 15 MG TAB PO SCH (20:57)
[2019-11-04] MEDS: TRAZODONE HCL 50 MG TAB PO SCH (21:58)
[2019-11-05] MEDS: TRAMADOL HCL 50 MG TABLET PO PRN ×4 (03:55→21:53)
[2019-11-05 05:39] LABS: Hematocrit (blood only) 33.1 % (37-47); Hemoglobin 9.8 g/dL (12.0-16.0); Mean Corpuscular Hemoglobin 23.5 pg (25-34); Mean Corpuscular Hgb Conc 29.6 g/dL (32-36); Mean Corpuscular Volume 79.4 fL (80-100); Mean Platelet Volume 10.3 fL (7.4-10.4); Platelet Count 151 K/uL (130-400); RDW Coefficient of Variation 19.7 % (11.5-14.5); RDW Standard Deviation 57.6 fL (36.4-46.3); Red Blood Count 4.17 M/uL (4.2-5.4); White Blood Count 2.14 K/uL (4.8-10.8)
[2019-11-05 06:18] LABS: Alanine Aminotransferase 41 U/L (12-78); Albumin Level 3.2 gm/dl (3.4-5.0); Aspartate Aminotransferase 41 U/L (15-37); BUN Creatinine Ratio 29.7 (10-20); Blood Urea Nitrogen 19 mg/dl (7-18); Calcium 8.6 mg/dl (8.5-10.1); Carbon Dioxide 23 mmol/L (21-32); Chloride 110 mmol/L (98-107); Creatinine Clr Calc Pharmacy 83.5 ml/min; Glucose 129 mg/dl (70-99); Magnesium 1.7 mg/dl (1.8-2.4); Potassium 3.8 mmol/L (3.5-5.1); Sodium 142 mmol/L (136-145)
[2019-11-05 06:21] LABS: Albumin Globulin Ratio 0.9 (0.9-2); Alkaline Phosphatase 104 U/L (45-117); Bilirubin Direct < 0.1 mg/dl (0-0.2); Bilirubin,Total 0.4 mg/dl (0.2-1); Globulin 3.7 gm/dl (2.5-4.0); Total Protein 6.9 gm/dl (6.4-8.2)
[2019-11-05] MEDS: LOPERAMIDE HCL 2 MG CAP PO PRN (07:26)
[2019-11-05] MEDS: ONDANSETRON INJ 2 MG/ML 2 ML VIAL IV PRN ×2 (07:26→16:15)
[2019-11-05] MEDS: ACETAMINOPHEN 325 MG TAB PO PRN (07:27)
[2019-11-05] MEDS: PANTOprazole 40 MG TAB PO SCH (08:36)
[2019-11-05] MEDS: FOLIC ACID 1 MG TAB PO SCH (08:36)
[2019-11-05] MEDS: CITALOPRAM 20 MG TAB PO SCH (08:36)
[2019-11-05] MEDS: MULTIVITAMIN TAB PO SCH (08:36)
[2019-11-05] MEDS: THIAMINE HCL 100 MG TAB PO SCH (08:36)
[2019-11-05] MEDS: MAGNESIUM CHLORIDE 64MG DELAYED REL TAB PO SCH ×2 (08:37→21:56)
[2019-11-05] MEDS: GABAPENTIN 400 MG CAP PO SCH ×3 (08:37→21:55)
[2019-11-05] MEDS: carvediloL 3.125 MG TAB PO SCH ×2 (08:37→21:55)
[2019-11-05] MEDS: COLESTIPOL HCL 1 GM TAB PO SCH ×2 (11:27→21:57)
--- NOTE | 2019-11-05 12:38 | Gastroenterology Progress Note ---
Date of Service November 05, 2019 Assessment & Plan (1) Diarrhea: (2) Cirrhosis: (3) Nausea: Pt is a 54 y/o female w hx of ETOH cirrhosis seen for nausea, and ongoing diarrhea. Hx of Cdiff, last stool studies on 10/22 negative for infections. EGD 10/20 showed large varices, portal hypertensive gastropathy, treated w APC. CT abd/pelvis 10/18 showed borderline L colon wall thickening. Nausea improving w Zofran. Stools are a bit more formed per her report since startin Colestipol. - Consider repeat stool cx and Cdiff - Trial increase Colestipol to 2g BID - Dicyclomine prn abd cramping, Imodium prn severe diarrhea - Re start Creon (was on this at home but not in hospital). - GI to sign off; pls recall prn Attg add: I interviewed and examined pt, reviewed chart and labs. Pt with ongoing chronic diarrhea, s/p w/u as above. Possibly related to panc insuff, portal colopathy. Titrate colestipol, creon. Please call with questions. Admission and Anticipated Discharge Date Admission Date: October 19, 2019 Subjective Pt w hx of ETOH cirrhosis, portal hypertensive gastropathy, varices, who is seen again per primary team's request for diarrhea, nausea. She reports bowel movements 12x a day w nocturnal awakening. Denies any dark tarry stools, rectal bleeding. Stools have oily residue and floating. She has hx of Cdiff, negative stool cx and Cdiff last checked in 10/22. Since started on Colestipol her stools are a bit formed. She also reports taking Creon at home for pancreatic insufficiency but not on this at the hospital. She feels nauseous but controlled w Zofran and also tolerating regular consistency diet. Last EGD 10/21/2019 - portal HTN treated w APC, large varices Last Colonoscopy 09/19/2019 - portal colopathy, random colon bx unremarkable. Review of Systems Review of Systems: All systems reviewed & are unremarkable except as noted in HPI & below Physical Exam Constitutional: WD/WN, vitals as above well groomed, cooperative and comfortable Eyes: PERRL, conjunctivae normal, anicteric sclerae ENMT: external ear and nose normal, oropharynx normal Respiratory: normal respiratory effort, lungs clear to auscultation Cardiovascular: RRR, no murmur, no edema Gastrointestinal (Abdomen): normal bowel sounds, soft, nontender, no hepat osplenomegaly Skin: no rashes, warm and dry no jaundice Psychiatric: A+Ox3, euthymic affect Lymphatic: no lymphedema Results & Data ([facility]) Vital Signs (Past 12 Hours) Vital Signs Temp Pulse Resp BP Pulse Ox 11/05/19 07:00 37.0 C 66 16 107/72 96
[2019-11-05] MEDS: PANCREAZE (LIPASE 10,500U) CAP PO SCH (15:51)
[2019-11-05] MEDS: DICYCLOMINE HCL 10 MG CAP PO PRN (18:27)
[2019-11-05] MEDS: MIRTAZAPINE TAB 15 MG TAB PO SCH (21:54)
[2019-11-05] MEDS: ROPINIROLE HCL 0.25 MG TABLET PO SCH (21:55)
[2019-11-05] MEDS: TRAZODONE HCL 50 MG TAB PO SCH (21:57)
--- NOTE | 2019-11-05 22:57 | Hospitalist Progress Note ---
Date of Service November 05, 2019 Assessment & Plan (1) Acute GI bleeding: Patient reported several episodes of coffee ground emesis. Hgb 12.1 --> 9.8 (after IV fluids) --> --> 9.2 --> 9.8. UGI bleeding could be secondary to esophagitis, gastritis, PUD, MW tear, esophageal varices. Received IV pantoprazole. GI consulted. EGD 10/20 showed large nonbleeding esophageal varices, portal hypertensive gastropathy treated with APC, normal duodenum. GI recommendations: pantoprazole 40 mg daily carvedilol 3.25 mg BID ceftriaxone 1 gm daily x 7 days for SBP prophylaxis (completed). May need repeat EGD if Hgb continues to fall. (2) Alcohol withdrawal: Received thiamine. Started on alcohol withdrawal protocol with chlordiazepoxide + lorazepam. Transitioned to gabapentin protocol. Symptoms improved. (3) Alcoholism with alcohol dependence: Ongoing challenges with alcoholism. Continue support / counseling. (4) Diarrhea: Etiology uncertain. C diff negative. May be due to irritable bowel syndrome or chronic pancreatic insufficiency. Started on colestipol. Possibility of dumping syndrome suggested by Manufacturing Development Engineer and dietary recommendations made. Seen for f/u by GI. Pancreatic enzymes added for possible pancreatic exocrine insufficiency. Further evaluation / management per GI. (5) Hypokalemia: K as low as 3.0. Replaced. K today = 3.8. Follow. (6) Hypomagnesemia: Mg as low as 1.5. Receiving mag chloride. Follow. (7) Hypoglycemia: Several episodes of fasting hypoglycemia with fasting blood sugars as low as 48 on 10/30. ? due to liver disease. Possibility of dumping syndrome suggested by Manufacturing Development Engineer and dietary recommendations made. FBS today = 129. Follow. (8) Chronic pain: Chronic pain, multifactorial- back, pelvic, lower extremity pain + fibromyalgia. History of opiate misuse. Admits that she uses alcohol to treat her pain at home. Cannot use NSAID's because of portal gastropathy. Acetaminophen not effective and should be used sparingly anyway. Receiving gabapentin. Currently using tramadol with some benefit, but still has severe pain daily. Has been followed by Drs. Newell and Jaswinder. Has intrathecal pump, but currently not being used. Has left knee pain and was advised to see Ortho for outpatient follow-up. Seen by Pain Management here in September. Outpatient follow-up with Drs. Newell and Jaswinder recommended at that time. (9) COVID-19 ruled out: SARS-CoV-2 PCR negative 10/19. (10) DVT prophylaxis: No anticoagulants because of GI bleeding. SCD's. Ambulate. (11) Discharge planning issues: Discharge disposition to be determined. Case Management consulted. Medical follow-up with Dr. Ge. Admission and Anticipated Discharge Date Admission Date: October 19, 2019 Subjective Recheck for multiple problems. Patient seen in their room around 1110. Nausea this morning without emesis. Reports 6 loose stools last night. Ongoing insomnia. Ongoing chronic pain. Review of Systems: Constitutional- no fever. Cardiac- no chest pain. Pulmonary- no cough or SOB. GI- as noted above. - no urinary symptoms. Otherwise, as noted above. Physical Exam Constitutional: no acute distress Eyes: + anicteric sclerae Respiratory: no respiratory distress Auscultation: lungs clear to auscultation bilaterally Cardiovascular: Rate/Rhythm: regular rate and regular rhythm Heart Sounds: + murmur (II/ sys murmur at base) Vessels: no JVD Extremities: no calf tenderness and no edema Gastrointestinal (Abdomen): Inspection/Auscultation: normal bowel sounds Percussion/Palpation: abdomen soft; abdomen nontender Musculoskeletal: Extremities: no cyanosis Skin: no rashes, warm and dry Psychiatric: Orientation: alert and oriented x 3 Results & Data Results & Data ([facility]) Vital Signs (Past 12 Hours) Vital Signs Temp Pulse Resp BP Pulse Ox 11/05/19 20:00 37.2 C 79 18 104/68 96 11/05/19 15:38 36.9 C 75 16 112/71 98 Laboratory Results Laboratory Results - last 24 hr 11/05/19 11/05/19 05:11 05:11 WBC 2.14 L RBC 4.17 L Hgb 9.8 L Hct 33.1 L MCV 79.4 L MCH 23.5 L MCHC 29.6 L RDW Std Deviation 57.6 H RDW Coeff of Chetan 19.7 H Plt Count 151 MPV 10.3 Sodium 142 Potassium 3.8 Chloride 110 H Carbon Dioxide 23 Anion Gap 9.0 BUN 19 H Creatinine 0.63 Est Cr Clr Drug Dosing 83.5 Est GFR ( Amer) 117.0 Est GFR (Non-Af Amer) 101.0 BUN/Creatinine Ratio 29.7 H Glucose 129 H Calcium 8.6 Magnesium 1.7 L Total Bilirubin 0.4 Direct Bilirubin < 0.1 AST 41 H ALT 41 Alkaline Phosphatase 104 Total Protein 6.9 Albumin 3.2 L Globulin 3.7 Albumin/Globulin Ratio 0.9 (1) Alcoholism with alcohol dependence Complication of substance-induced condition: uncomplicated Substance use status: in withdrawal Qualified Code(s): F10.230 - Alcohol dependence with withdrawal, uncomplicated
[2019-11-06] MEDS: TRAMADOL HCL 50 MG TABLET PO PRN ×4 (03:49→21:48)
[2019-11-06] MEDS: LOPERAMIDE HCL 2 MG CAP PO PRN (07:31)
[2019-11-06] MEDS: PANCREAZE (LIPASE 10,500U) CAP PO SCH ×3 (07:31→15:46)
[2019-11-06] MEDS: ACETAMINOPHEN 325 MG TAB PO PRN (07:31)
[2019-11-06] MEDS: ONDANSETRON INJ 2 MG/ML 2 ML VIAL IV PRN ×2 (07:31→13:06)
[2019-11-06] MEDS: PANTOprazole 40 MG TAB PO SCH (09:33)
[2019-11-06] MEDS: DICYCLOMINE HCL 10 MG CAP PO PRN ×2 (09:33→17:19)
[2019-11-06] MEDS: THIAMINE HCL 100 MG TAB PO SCH (09:33)
[2019-11-06] MEDS: GABAPENTIN 400 MG CAP PO SCH ×3 (09:33→21:52)
[2019-11-06] MEDS: FOLIC ACID 1 MG TAB PO SCH (09:33)
[2019-11-06] MEDS: COLESTIPOL HCL 1 GM TAB PO SCH ×2 (09:34→22:47)
[2019-11-06] MEDS: CITALOPRAM 20 MG TAB PO SCH (09:34)
[2019-11-06] MEDS: MULTIVITAMIN TAB PO SCH (09:34)
[2019-11-06] MEDS: carvediloL 3.125 MG TAB PO SCH ×2 (09:34→21:52)
[2019-11-06] MEDS: MAGNESIUM CHLORIDE 64MG DELAYED REL TAB PO SCH ×2 (09:34→21:50)
--- NOTE | 2019-11-06 16:48 | Hospitalist Progress Note ---
Date of Service November 06, 2019 Assessment & Plan (1) Acute GI bleeding: Presented with coffee ground emesis, Melena H/O esophageal varices --CT ABD:Study limited by the lack of intravenous and oral contrast. Left-sided nephrolithiasis. No hydronephrosis. No ureteral calculi identified. Postsurgical changes of a gastric bypass. No evidence of bowel obstruction. No evidence of free air. Borderline minimal sigmoid and left colonic wall thickening. Hepatic steatosis. Interval resolution of the previously identified ascites. --Monitor CBC --Counseled to quit alcohol use --Appreciate GI input --Completed Ceftriaxone course for SBP prophylaxis --Needs follow-up with GI as outpatient (GI group at [facility] in [place]) --Continue PPI, beta-gayle --Currently no acute bleeding --Hb:9.8 UTI-POA Urine Culture: Klebsiella Blood Culture: No growth to date Completed ceftriaxone course Hypoglycemia Likely due to liver disease DD:Dumping Syndrome On hypoglycemia protocol Continue to monitor BGs (2) Alcohol withdrawal: Continue thiamine, folic acid No withdrawal symptoms currently Waiting for rehab placement Case management to help with discharge planning (3) Alcoholism with alcohol dependence: As above (4) Diarrhea: Chronic Diarrhea Likely Irritable bowel syndrome/chronic pancreatic insufficiency. C diff negative. In setting of chronic alcohol use Follows with GI as outpatient Continue colestipol Restarted Creon Pancytopenia In setting of alcohol use No bleeding issues Monitor CBC daily (5) Hypokalemia: Hypokalemia Hypomagnesemia Secondary to chronic diarrhea Replete electrolytes as needed (6) COVID-19 ruled out: SARS-CoV-2 PCR negative 10/19. Chronic pain: H/O Fibromyalgia H/O Opiate misuse. Avoid NSAID's due to portal gastropathy Followed with Dr. Newell and . Has intrathecal pump, but currently not being used. Tramadol, Bentyl PRN (7) DVT prophylaxis: SCDs Re: GI bleeding Ambulate. (8) Discharge planning issues: Waiting for rehab placement Case management to help with discharge planning Admission and Anticipated Discharge Date Admission Date: October 19, 2019 Subjective Patient is seen and examined at bedside Reports ongoing nausea, vomiting intermittently Diarrhea slowly improving Generalized weakness improving as well Denies chest pain, shortness of breath, dizziness Waiting for rehab placement Review of Systems Review of Systems: All systems reviewed & are unremarkable except as noted in HPI & below Physical Exam Physical Exam: Physical Exam: Vitals signs as noted above General Appearance:Moderately built and nourished, no apparent distress Head: normocephalic, Atraumatic Eyes: normal inspection, EOMI Neck: supple, Trachea midline Respiratory/Chest: Normal breath sounds, CTA Cardiovascular: S1, S2, + systolic murmur Abdomen/GI:Soft, non tender, Bowel sounds present Extremities/Musculoskelatal:normal inspection, no edema Neurologic/Psych:AAOX3, grossly no focal neurological deficits Skin: normal color, warm Results & Data Results & Data ([facility]) Vital Signs (Past 12 Hours) Vital Signs Temp Pulse Pulse Resp BP BP Pulse Ox 11/06/19 15:12 37.1 C 88 88 18 117/79 96 11/06/19 09:37 82 108/75 11/06/19 08:10 36.7 C 59 L 17 101/66 97 (1) Alcoholism with alcohol dependence Complication of substance-induced condition: uncomplicated Substance use status: in withdrawal Qualified Code(s): F10.230 - Alcohol dependence with withdrawal, uncomplicated
[2019-11-06] MEDS: TRAZODONE HCL 50 MG TAB PO SCH (21:48)
[2019-11-06] MEDS: ROPINIROLE HCL 0.25 MG TABLET PO SCH (21:51)
[2019-11-06] MEDS: MIRTAZAPINE TAB 15 MG TAB PO SCH (21:53)
[2019-11-07] MEDS: TRAMADOL HCL 50 MG TABLET PO PRN ×4 (03:52→21:46)
[2019-11-07] MEDS: ONDANSETRON INJ 2 MG/ML 2 ML VIAL IV PRN ×2 (08:50→15:56)
[2019-11-07] MEDS: LOPERAMIDE HCL 2 MG CAP PO PRN (08:52)
[2019-11-07] MEDS: ACETAMINOPHEN 325 MG TAB PO PRN ×2 (08:52→12:51)
[2019-11-07] MEDS: GABAPENTIN 400 MG CAP PO SCH ×3 (08:53→20:28)
[2019-11-07] MEDS: PANTOprazole 40 MG TAB PO SCH (08:53)
[2019-11-07] MEDS: CITALOPRAM 20 MG TAB PO SCH (08:54)
[2019-11-07] MEDS: MAGNESIUM CHLORIDE 64MG DELAYED REL TAB PO SCH ×2 (08:54→20:28)
[2019-11-07] MEDS: THIAMINE HCL 100 MG TAB PO SCH (08:54)
[2019-11-07] MEDS: FOLIC ACID 1 MG TAB PO SCH (08:54)
[2019-11-07] MEDS: DICYCLOMINE HCL 10 MG CAP PO PRN ×2 (08:55→16:46)
[2019-11-07] MEDS: PANCREAZE (LIPASE 10,500U) CAP PO SCH ×3 (08:55→16:48)
[2019-11-07] MEDS: MULTIVITAMIN TAB PO SCH (08:55)
[2019-11-07] MEDS: carvediloL 3.125 MG TAB PO SCH ×2 (08:58→20:26)
[2019-11-07] MEDS: COLESTIPOL HCL 1 GM TAB PO SCH ×2 (10:04→21:44)
[2019-11-07] MEDS: LIDOCAINE 5% 1 PATCH TD SCH (12:49)
--- NOTE | 2019-11-07 17:21 | Hospitalist Progress Note ---
Date of Service November 07, 2019 Assessment & Plan (1) Acute GI bleeding: Presented with coffee ground emesis, Melena H/O esophageal varices --CT ABD:Study limited by the lack of intravenous and oral contrast. Left-sided nephrolithiasis. No hydronephrosis. No ureteral calculi identified. Postsurgical changes of a gastric bypass. No evidence of bowel obstruction. No evidence of free air. Borderline minimal sigmoid and left colonic wall thickening. Hepatic steatosis. Interval resolution of the previously identified ascites. --Monitor CBC --Counseled to quit alcohol use --Appreciate GI input --Completed Ceftriaxone course for SBP prophylaxis --Needs follow-up with GI as outpatient (GI group at [facility] in [place]) --Continue PPI, beta-gayle --Hb:9.8 --Denies any recurrence of bleeding issues UTI-POA Urine Culture: Klebsiella Blood Culture: No growth to date Completed ceftriaxone course Hypoglycemia Likely due to liver disease DD:Dumping Syndrome On hypoglycemia protocol Continue to monitor BGs No significant hypoglycemia currently (2) Alcohol withdrawal: Continue thiamine, folic acid No withdrawal symptoms currently Waiting for rehab placement Case management to help with discharge planning (3) Alcoholism with alcohol dependence: As above (4) Diarrhea: Chronic Diarrhea Likely Irritable bowel syndrome/chronic pancreatic insufficiency. C diff negative. In setting of chronic alcohol use Follows with GI as outpatient Continue colestipol, Creon Monitor electrolytes Pancytopenia In setting of alcohol use No bleeding issues Thrombocytopenia resolved Hb stable Monitor CBC (5) Hypokalemia: Hypokalemia Hypomagnesemia Secondary to chronic diarrhea Replete electrolytes as needed (6) COVID-19 ruled out: SARS-CoV-2 PCR negative 10/19. Chronic pain: H/O Fibromyalgia H/O Opiate misuse. Avoid NSAID's due to portal gastropathy Followed with Dr. Newell and . Has intrathecal pump, but currently not being used. Tramadol, Bentyl PRN (7) DVT prophylaxis: SCDs Re: GI bleeding Ambulate. (8) Discharge planning issues: Waiting for rehab placement Case management to help with discharge planning Admission and Anticipated Discharge Date Admission Date: October 19, 2019 Subjective Patient is seen and examined at bedside No significant change from yesterday Continues to have diarrhea as per patient Reports chronic back pain Has nausea but no vomiting today Denies chest pain, shortness of breath, dizziness Tolerating regular diet Waiting for rehab placement Review of Systems Review of Systems: All systems reviewed & are unremarkable except as noted in HPI & below Physical Exam Physical Exam: Physical Exam: Vitals signs as noted above General Appearance:Moderately built and nourished, no apparent distress Head: normocephalic, Atraumatic Eyes: normal inspection, EOMI Neck: supple, Trachea midline Respiratory/Chest: Normal breath sounds, CTA Cardiovascular: S1, S2, + systolic murmur Abdomen/GI:Soft, non tender, Bowel sounds present Extremities/Musculoskelatal:normal inspection, no edema Neurologic/Psych:AAOX3, grossly no focal neurological deficits Skin: normal color, warm Results & Data Results & Data ([facility]) Vital Signs (Past 12 Hours) Vital Signs Temp Pulse Resp BP Pulse Ox 11/07/19 15:24 36.5 C 73 16 109/74 97 11/07/19 07:17 37.1 C 59 L 16 102/64 98 (1) Alcoholism with alcohol dependence Complication of substance-induced condition: uncomplicated Substance use status: in withdrawal Qualified Code(s): F10.230 - Alcohol dependence with withdrawal, uncomplicated
[2019-11-07] MEDS: MIRTAZAPINE TAB 15 MG TAB PO SCH (20:27)
[2019-11-07] MEDS: ROPINIROLE HCL 0.25 MG TABLET PO SCH (20:29)
[2019-11-07] MEDS: TRAZODONE HCL 50 MG TAB PO SCH (21:47)
[2019-11-08] MEDS: TRAMADOL HCL 50 MG TABLET PO PRN ×4 (04:04→21:50)
[2019-11-08 06:50] LABS: BUN Creatinine Ratio 24.9 (10-20); Calcium 8.7 mg/dl (8.5-10.1); Creatinine Clr Calc Pharmacy 93.9 ml/min; Est GFR (African American) 121.7; Magnesium 1.8 mg/dl (1.8-2.4); Potassium 4.2 mmol/L (3.5-5.1)
[2019-11-08] MEDS: ACETAMINOPHEN 325 MG TAB PO PRN (07:46)
[2019-11-08] MEDS: LOPERAMIDE HCL 2 MG CAP PO PRN ×2 (07:46→21:52)
[2019-11-08] MEDS: PANTOprazole 40 MG TAB PO SCH (07:46)
[2019-11-08] MEDS: ONDANSETRON INJ 2 MG/ML 2 ML VIAL IV PRN ×2 (07:47→13:54)
[2019-11-08] MEDS: LIDOCAINE 5% 1 PATCH TD SCH (07:49)
[2019-11-08] MEDS: DICYCLOMINE HCL 10 MG CAP PO PRN (08:32)
[2019-11-08] MEDS: PANCREAZE (LIPASE 10,500U) CAP PO SCH ×3 (08:33→15:52)
[2019-11-08] MEDS: COLESTIPOL HCL 1 GM TAB PO SCH ×2 (09:15→21:42)
[2019-11-08] MEDS: carvediloL 3.125 MG TAB PO SCH ×2 (09:16→21:39)
[2019-11-08] MEDS: GABAPENTIN 400 MG CAP PO SCH ×3 (09:16→21:42)
[2019-11-08] MEDS: MULTIVITAMIN TAB PO SCH (09:16)
[2019-11-08] MEDS: CITALOPRAM 20 MG TAB PO SCH (09:16)
[2019-11-08] MEDS: THIAMINE HCL 100 MG TAB PO SCH (09:16)
[2019-11-08] MEDS: FOLIC ACID 1 MG TAB PO SCH (09:16)
[2019-11-08] MEDS: MAGNESIUM CHLORIDE 64MG DELAYED REL TAB PO SCH ×2 (09:18→21:45)
--- NOTE | 2019-11-08 18:18 | Hospitalist Progress Note ---
Date of Service November 08, 2019 Assessment & Plan (1) Acute GI bleeding: Presented with coffee ground emesis, Melena H/O esophageal varices --CT ABD:Study limited by the lack of intravenous and oral contrast. Left-sided nephrolithiasis. No hydronephrosis. No ureteral calculi identified. Postsurgical changes of a gastric bypass. No evidence of bowel obstruction. No evidence of free air. Borderline minimal sigmoid and left colonic wall thickening. Hepatic steatosis. Interval resolution of the previously identified ascites. --Monitor CBC --Counseled to quit alcohol use --Appreciate GI input --Completed Ceftriaxone course for SBP prophylaxis --Needs follow-up with GI as outpatient (GI group at [facility] in [place]) --Continue PPI, beta-gayle --Hb:9.8 --Denies any recurrence of bleeding issues --Clinically stable UTI-POA Urine Culture: Klebsiella Blood Culture: No growth to date Completed ceftriaxone course Hypoglycemia Likely due to liver disease DD:Dumping Syndrome On hypoglycemia protocol Continue to monitor BGs No significant hypoglycemia currently (2) Alcohol withdrawal: Continue thiamine, folic acid No withdrawal symptoms currently Case management to help with discharge planning (3) Alcoholism with alcohol dependence: As above (4) Diarrhea: Chronic Diarrhea Likely Irritable bowel syndrome/chronic pancreatic insufficiency. C diff negative. In setting of chronic alcohol use Follows with GI as outpatient Continue colestipol, Creon Monitor electrolytes Slowly improving Pancytopenia In setting of alcohol use No bleeding issues Thrombocytopenia resolved Hb stable Monitor CBC (5) Hypokalemia: Hypokalemia Hypomagnesemia Secondary to chronic diarrhea Replete electrolytes as needed Resolved (6) COVID-19 ruled out: SARS-CoV-2 PCR negative 10/19. Chronic pain: H/O Fibromyalgia H/O Opiate misuse. Avoid NSAID's due to portal gastropathy Followed with Dr. Newell and . Has intrathecal pump, but currently not being used. Tramadol, Bentyl PRN (7) DVT prophylaxis: SCDs Re: GI bleeding Ambulate. (8) Discharge planning issues: Case management to help with discharge planning Admission and Anticipated Discharge Date Admission Date: October 19, 2019 Subjective Patient is seen and examined at bedside No new complaints Chronic Diarrhea Has nausea but no vomiting today Denies chest pain, shortness of breath, dizziness Had PT earlier today Review of Systems Review of Systems: All systems reviewed & are unremarkable except as noted in HPI & below Physical Exam Physical Exam: Physical Exam: Vitals signs as noted above General Appearance:Moderately built and nourished, no apparent distress Head: normocephalic, Atraumatic Eyes: normal inspection, EOMI Neck: supple, Trachea midline Respiratory/Chest: Normal breath sounds, CTA Cardiovascular: S1, S2, + systolic murmur Abdomen/GI:Soft, non tender, Bowel sounds present Extremities/Musculoskelatal:normal inspection, no edema Neurologic/Psych:AAOX3, grossly no focal neurological deficits Skin: normal color, warm Results & Data Results & Data ([facility]) Vital Signs (Past 12 Hours) Vital Signs Temp Pulse Pulse Resp BP BP Pulse Ox 11/08/19 15:30 37 C 75 16 112/76 97 11/08/19 07:26 36.7 C 72 19 104/66 97 Laboratory Results [facility] 11/08/19 05:43 Sodium 143 Potassium 4.2 Chloride 111 H Carbon Dioxide 27 BUN 14 Creatinine 0.56 L Glucose 68 L Calcium 8.7 (1) Alcoholism with alcohol dependence Complication of substance-induced condition: uncomplicated Substance use status: in withdrawal Qualified Code(s): F10.230 - Alcohol dependence with withdrawal, uncomplicated
[2019-11-08] MEDS: MIRTAZAPINE TAB 15 MG TAB PO SCH (21:43)
[2019-11-08] MEDS: ROPINIROLE HCL 0.25 MG TABLET PO SCH (21:43)
[2019-11-08] MEDS: TRAZODONE HCL 50 MG TAB PO SCH (21:50)
[2019-11-09] MEDS: TRAMADOL HCL 50 MG TABLET PO PRN ×3 (03:50→16:08)
[2019-11-09] MEDS: DICYCLOMINE HCL 10 MG CAP PO PRN (03:52)
[2019-11-09] MEDS: ONDANSETRON INJ 2 MG/ML 2 ML VIAL IV PRN ×2 (04:15→12:45)
[2019-11-09] MEDS: MAGNESIUM CHLORIDE 64MG DELAYED REL TAB PO SCH (08:34)
[2019-11-09] MEDS: PANCREAZE (LIPASE 10,500U) CAP PO SCH ×2 (08:34→12:46)
[2019-11-09] MEDS: CITALOPRAM 20 MG TAB PO SCH (08:34)
[2019-11-09] MEDS: THIAMINE HCL 100 MG TAB PO SCH (08:34)
[2019-11-09] MEDS: GABAPENTIN 400 MG CAP PO SCH ×2 (08:34→12:48)
[2019-11-09] MEDS: MULTIVITAMIN TAB PO SCH (08:34)
[2019-11-09] MEDS: carvediloL 3.125 MG TAB PO SCH (08:35)
[2019-11-09] MEDS: PANTOprazole 40 MG TAB PO SCH (08:36)
[2019-11-09] MEDS: LIDOCAINE 5% 1 PATCH TD SCH (08:36)
[2019-11-09] MEDS: FOLIC ACID 1 MG TAB PO SCH (08:36)
[2019-11-09] MEDS: COLESTIPOL HCL 1 GM TAB PO SCH (10:05)
--- NOTE | 2019-11-09 15:14 | Hospitalist Progress Note ---
Date of Service November 09, 2019 Assessment & Plan (1) Acute GI bleeding: Presented with coffee ground emesis, Melena H/O esophageal varices --CT ABD:Study limited by the lack of intravenous and oral contrast. Left-sided nephrolithiasis. No hydronephrosis. No ureteral calculi identified. Postsurgical changes of a gastric bypass. No evidence of bowel obstruction. No evidence of free air. Borderline minimal sigmoid and left colonic wall thickening. Hepatic steatosis. Interval resolution of the previously identified ascites. --Monitor CBC --Counseled to quit alcohol use --Appreciate GI input --Completed Ceftriaxone course for SBP prophylaxis --Needs follow-up with GI as outpatient (GI group at [facility] in [place]) --Continue PPI, beta-gayle --Hb:9.8 --Denies any recurrence of bleeding issues --Plan to discharge home today UTI-POA Urine Culture: Klebsiella Blood Culture: No growth to date Completed ceftriaxone course Hypoglycemia Likely due to liver disease DD:Dumping Syndrome On hypoglycemia protocol Continue to monitor BGs No significant hypoglycemia currently Resolved (2) Alcohol withdrawal: Continue thiamine, folic acid No withdrawal symptoms currently Case management to help with discharge planning (3) Alcoholism with alcohol dependence: As above (4) Diarrhea: Chronic Diarrhea Likely Irritable bowel syndrome/chronic pancreatic insufficiency. C diff negative. In setting of chronic alcohol use Follows with GI as outpatient Continue colestipol, Creon Monitor electrolytes Slowly improving Pancytopenia In setting of alcohol use No bleeding issues Thrombocytopenia resolved Hb stable Monitor CBC (5) Hypokalemia: Hypokalemia Hypomagnesemia Secondary to chronic diarrhea Replete electrolytes as needed Resolved (6) COVID-19 ruled out: SARS-CoV-2 PCR negative 10/19. Chronic pain: H/O Fibromyalgia H/O Opiate misuse. Avoid NSAID's due to portal gastropathy Followed with Dr. Newell and . Has intrathecal pump, but currently not being used. Tramadol, Bentyl PRN (7) DVT prophylaxis: SCDs Re: GI bleeding Ambulate. (8) Discharge planning issues: Not qualified for rehab placement Plan to discharge home with home health--patient agrees with plan Case management on board Admission and Anticipated Discharge Date Admission Date: October 19, 2019 Subjective Patient is seen and examined at bedside Clinically no significant change from yesterday Ongoing diarrhea No new complaints Denies chest pain, shortness of breath, dizziness Plan to discharge home with home health today Review of Systems Review of Systems: All systems reviewed & are unremarkable except as noted in HPI & below Physical Exam Physical Exam: Physical Exam: Vitals signs as noted above General Appearance:Moderately built and nourished, no apparent distress Head: normocephalic, Atraumatic Eyes: normal inspection, EOMI Neck: supple, Trachea midline Respiratory/Chest: Normal breath sounds, CTA Cardiovascular: S1, S2, + systolic murmur Abdomen/GI:Soft, non tender, Bowel sounds present Extremities/Musculoskelatal:normal inspection, no edema Neurologic/Psych:AAOX3, grossly no focal neurological deficits Skin: normal color, warm Results & Data Results & Data ([facility]) Vital Signs (Past 12 Hours) Vital Signs Temp Pulse Pulse Resp BP Pulse Ox 11/09/19 08:33 59 L 100/69 11/09/19 08:18 37.0 C 59 L 18 106/69 95 (1) Alcoholism with alcohol dependence Complication of substance-induced condition: uncomplicated Substance use status: in withdrawal Qualified Code(s): F10.230 - Alcohol dependence with withdrawal, uncomplicated
--- NOTE | 2019-11-09 15:28 | Discharge Summary ---
Date of Service November 09, 2019 Admission HPI Per Admitting Provider This is a 54-year-old female who has significant past medical history of chronic alcohol abuse, end-stage liver disease, esophageal varices, portal hypertension, hypothyroidism, peripheral neuropathy, history of convulsions, depression, anxiety, RLS, history of narcotic abuse who presents to ED secondary to ill feeling x5 days. She reports ever since Tuesday having difficulty tolerating anything p.o. secondary to nausea vomiting and diarrhea. She reports several episodes of coffee-ground emesis last evening, approximately 12 as well as several episodes of diarrhea unsure quantity. She has not had an episode of diarrhea while in ED. She reports her last alcoholic drink was last evening. She called into her [employer] community case manager who urged her to seek ED evaluation secondary to last alcoholic beverage approximately 24 hours ago and inability to tolerate p.o. due to concern for development of withdrawal. She has had multiple admissions secondary to chronic alcohol abuse. She states she did speak with her community case manager regarding possibility of disability rehab. She denies any other recent illness, fever, chills, sweats, lightheadedness, dizziness, syncope, chest pain, shortness breath, palpitations, dysuria, increased urgency or frequency with urination, melena, magnesium. She does admit last evening in the shower she began to feel shaky, fell and hit her head and believes she may have had a seizure. She further admits to having epigastric abdominal pain, pain is nonradiating, described as "ache" and feels similar to prior gastritis episodes in the past. She feels likely hurting seco ndary to retching. She currently lives by herself but does have close contact with a friend. No exposure to COVID-19 denies any loss of taste or smell. Of significance she was last admitted 09/10 to 09/19 secondary to fall and unable to get up. She had no acute fracture but fall likely secondary to alcohol use. Completed gabapentin and alcohol withdrawal protocol. Seen and evaluated by GI and underwent colonoscopy on 09/18 which is unremarkable. Recent EGD 08/03. Started on PPI twice daily. Hospital course was complicated with Klebsiella UTI treated with upper antibiotics. Upon discharge she was unable to pick pack worker prescriptions and therefore she has not been taking her Protonix, newly prescribed colestipol or Requip. She states that she also has only been taking 100 mg of gabapentin 3 times daily. In ED patient remained hemodynamically stable. She was mildly tachycardic. Notable lab abnormalities include H&H 12.1 and 38.4 with microcytic indices, platelet 218, anion gap 14, BUN 5, creatinine 1.53, ethyl alcohol 288.7. Head CT was negative for any acute cardiopulmonary abnormality. CT scan abdomen pelvis revealed interval resolution of previously identified ascites, left-sided nephrolithiasis and borderline minimal sigmoid and left colonic wall thickening. However no oral or IV contrast causes study to be limited. In ED she was started on IV Protonix bolus and drip. She also received thiamine and folic acid IV along with IVF. Admission Exam Per Admitting Provider Physical Exam Physical Exam: Constitutional: Chronically ill-appearing female, sitting in bed, tremors of bilateral upper extremities with movement, vitals as above, NAD, pleasant, conversing easily Head: Normocephalic, Atraumatic Eyes: PERRL, conjunctivae normal, anicteric sclerae ENMT: external ear and nose normal, oropharynx normal, dry mucous membranes Neck: trachea midline, no thyromegaly normal visual inspection Respiratory: normal respiratory effort, lungs clear to auscultation, no wheeze, rales, rhonchi. Normal insp/exp effort, no accessory muscle use Cardiovascular: Tachycardic rate, regular rhythm, no murmur, no edema Vessels: no JVD or carotid bruit Chest: normal inspection of chest Abdomen: normal bowel sounds, soft, nontender, no hepatosplenomegaly Musculoskeletal: no cyanosis or clubbing, extremities motor strength 5/5 Skin: no rashes, warm and dry moderate turgor Neurologic: PERRL, EOMI, accommodation nl, no face palsy, no dysarthria CN's II-XI intact bilaterally and moves all extremities Psychiatric: A+Ox3, euthymic affect Lymphatic: no cervical or axillary lymphadenopathy : deferred Principal Diagnosis Acute GI bleeding Urinary tract infection Hypoglycemia Alcohol withdrawal Chronic diarrhea Pancytopenia Electrolyte imbalances Discharge Data Allergies Allergy/AdvReac Type Severity Reaction Status Date / Time diphenhydramine Allergy Severe seizures/it Verified 10/19/19 15:27 mya/tremo rs bupropion Allergy Intermediate Palpitation Verified 10/19/19 15:27 s clarithromycin Allergy Intermediate HIVES Verified 10/19/19 15:27 aspirin Allergy Mild hives/ringing Verified 10/19/19 15:27 of ears oxaprozin Allergy Mild nausea/vomi Verified 10/19/19 15:27 ting salicylates Allergy Mild ringing in Verified 10/19/19 15:27 ears/hives Consultations 10/19/19 17:01 ED Decision to Admit Stat 10/19/19 19:18 Consult Case Management - Discharge Planning Routine Consult Gastroenterology Routine Procedures Performed Operation Date: 10/21/19 07:45 Actual Procedures p Esophagogastroduodenoscopy(Not Applicable) - Jh Guerrero MD Operation Date: 10/24/19 18:00 <No data on this case meets the specified criteria> --CT ABD:Study limited by the lack of intravenous and oral contrast. Left-sided nephrolithiasis. No hydronephrosis. No ureteral calculi identified. Postsurgical changes of a gastric bypass. No evidence of bowel obstruction. No evidence of free air. Borderline minimal sigmoid and left colonic wall thickening. Hepatic steatosis. Interval resolution of the previously identified ascites. --CT Head:No acute intracranial abnormality or calvarial fracture. --EGD: Findings: Large (> 5 mm) varices were found in the distal esophagus. They were not bleeding. Estimated blood loss: none. Severe portal hypertensive gastropathy was found in the stomach with blood oozing in various parts. Coagulation for hemostasis using argon plasma at 0.3 liters/minute and 35 castellano was successful. Estimated blood loss: none. The examined duodenum was normal. Impression: - Large (> 5 mm) esophageal varices. - Portal hypertensive gastropathy. Treated with argon plasma coagulation (APC). - Normal examined duodenum. - No specimens collected. Recommendation: - [facility]. - Clear liquid diet today. can advance tomorrow morning as tolerated if stable -protonix 40 mg daily -start beta gayle, coreg 3.25 mg BID -start ceftriaxone 1 g daily for 7 days for SBP ppx in the setting of UGI bleed in a cirrhotic Ordered Studies 10/19/19 13:47 CT abd pelvis wo con Stat CT head/brain wo con Stat Hospital Course (1) Acute GI bleeding: Presented with coffee ground emesis, Melena H/O esophageal varices --CT ABD:Study limited by the lack of intravenous and oral contrast. Left-sided nephrolithiasis. No hydronephrosis. No ureteral calculi identified. Postsurgical changes of a gastric bypass. No evidence of bowel obstruction. No evidence of free air. Borderline minimal sigmoid and left colonic wall thickening. Hepatic steatosis. Interval resolution of the previously identified ascites. --Monitor CBC --Counseled to quit alcohol use --Appreciate GI input --Completed Ceftriaxone course for SBP prophylaxis --Needs follow-up with GI as outpatient (GI group at [facility] in [place]) --Continue PPI, beta-gayle --Hb:9.8 --Denies any recurrence of bleeding issues --Plan to discharge home today UTI-POA Urine Culture: Klebsiella Blood Culture: No growth to date Completed ceftriaxone course Hypoglycemia Likely due to liver disease DD:Dumping Syndrome On hypoglycemia protocol Continue to monitor BGs No significant hypoglycemia currently Resolved (2) Alcohol withdrawal: Continue thiamine, folic acid No withdrawal symptoms currently Case management to help with discharge planning (3) Alcoholism with alcohol dependence: As above (4) Diarrhea: Chronic Diarrhea Likely Irritable bowel syndrome/chronic pancreatic insufficiency. C diff negative. In setting of chronic alcohol use Follows with GI as outpatient Continue colestipol, Creon Monitor electrolytes Slowly improving Pancytopenia In setting of alcohol use No bleeding issues Thrombocytopenia resolved Hb stable Monitor CBC (5) Hypokalemia: Hypokalemia Hypomagnesemia Secondary to chronic diarrhea Replete electrolytes as needed Resolved (6) COVID-19 ruled out: SARS-CoV-2 PCR negative 10/19. Chronic pain: H/O Fibromyalgia H/O Opiate misuse. Avoid NSAID's due to portal gastropathy Followed with Dr. Newell and . Has intrathecal pump, but currently not being used. Tramadol, Bentyl PRN (7) DVT prophylaxis: SCDs Re: GI bleeding Ambulate. (8) Discharge planning issues: Not qualified for rehab placement Plan to discharge home with home health--patient agrees with plan Case management on board Total Time Total Time Spent Total Time Spent (In Minutes): 45 minutes Discharge Plan Discharge Items Patient Disposition: Home - Self-Care Reason For Visit: COFFEE GROUND EMESIS,ALCOHOL ABUSE Discharge Diagnosis: Acute GI bleeding Urinary tract infection Hypoglycemia Alcohol withdrawal Chronic diarrhea Pancytopenia Electrolyte imbalances Activity: Per Instructions section Exercise/Sports: Gradually increase as tolerated Non-emergency contact: Primary Care Provider and Computer Technology Instructor Call non-emergency contact if: you have any medication questions, your symptoms worsen, your pain is not controlled, your pain is worsening, your pain is unusual for you, your pain is concerning for you and you have a fever Follow-up/Referrals: Pita Borges MD [Primary Care Provider] - 11/14/19 1:00 pm (Date & Time 11/14/2019 1:00 PM Provider Pita Wolfe MD Department Internal Medicine [facility] ) Diet: Regular and Lactose Intolerant Addtl Attending Provider Instructions: Follow-up with your primary care physician Dr. Cameron Wolfe on November 14, 2019 at 1 PM as scheduled Follow-up with your economic developer as needed Quit drinking alcohol as advised Seek immediate medical attention if your symptoms reoccur or worsen Pending Studies at Discharge: No Stand-Alone Forms: My [employer], Smoking Cessation Medications and DC Order Prescriptions: New dicyclomine 10 mg Capsule 10 mg PO BID PRN (Reason: pain) Qty: 30 RF: 0 carvedilol 3.125 mg Tablet 3.125 mg PO BID 30 Days Qty: 60 RF: 0 trazodone 50 mg Tablet 50 mg PO HS Qty: 30 RF: 0 tramadol 50 mg Tablet 50 mg PO Q8H PRN (Reason: pain) Qty: 12 RF: 0 magnesium chloride [Mag 64] 64 mg Tablet,Delayed Release (Dr/Ec) 64 mg PO BID 30 Days Qty: 60 RF: 0 Creon 36,000-114,000- 180,000 unit Capsule,Delayed Release(Dr/Ec) 3 cap PO AC 30 Days Qty: 270 RF: 0 thiamine HCl (vitamin B1) [Vitamin B-1] 100 mg Tablet 100 mg PO QAM Qty: 30 RF: 0 lidocaine 5 % Adhesive Patch,Medicated 1 patch transdermal QAM Qty: 10 RF: 0 folic acid 1 mg Tablet 1 mg PO QAM Qty: 30 RF: 0 Continued loperamide 2 mg capsule 2 mg PO Q8H PRN (Reason: Diarrhea) RF: 0 Centrum Silver 0.4-300-250 mg-mcg-mcg Tablet 1 tab PO QAM 30 Days Qty: 0 RF: 0 citalopram [Celexa] 10 mg Tablet 20 mg PO DAILY 30 Days Qty: 60 RF: 0 gabapentin 400 mg capsule 400 mg PO TID 30 Days Qty: 90 RF: 0 ropinirole [Requip] 0.25 mg Tablet 0.25 mg PO HS 30 Days Qty: 30 RF: 0 pantoprazole 40 mg tablet,delayed release (DR/EC) 40 mg PO DAILY Qty: 30 RF: 0 mirtazapine 15 mg tablet 15 mg PO HS 30 Days Qty: 30 RF: 0 Changed colestipol 1 gram Tablet 2 g PO BID 30 Days Qty: 120 RF: 0 Discontinued potassium chloride 10 mEq Tablet Extended Release 40 meq PO TID RF: 0 magnesium oxide 400 mg magnesium Capsule 400 mg PO DAILY RF: 0 Discharge Orders: Discharge Order (Routine); Ordered 11/09/19 Ordered By: Messi Garcia Admission Data Admit Date/Time: 10/19/19 17:21 Attending Provider: Messi Garcia Admit Provider: Daniel Vanegas Primary Care Provider: Pita Borges Other Providers: Daniel Vanegas ; Jh Guerrero ; Messi Garcia ; Lacho Smith Other Interventions: Discharge Summary Assessment (RN) Last Done: 11/09/19 16:11
[2019-11-09] MEDS: ACETAMINOPHEN 325 MG TAB PO PRN (15:39)
[2019-11-09] MEDS: LOPERAMIDE HCL 2 MG CAP PO PRN (15:39)
== END 2019-11-09 16:35 | disposition home health service (06) | DRG 392 ==
LOC: ED 12:54 → 2W 17:21 → SUATTDRO 17:21 → 2W 18:39 → 3N 11-01 01:00
DX: D61.818 Other pancytopenia; Z88.1 Allergy status to other antibiotic agents; K92.0 Hematemesis; B96.1 Klebsiella pneumoniae [K. pneumoniae] as the cause of diseases classified elsewhere; F41.8 Other specified anxiety disorders; G89.29 Other chronic pain; Z20.828 Contact with and (suspected) exposure to other viral communicable diseases; E87.2 Acidosis; G62.1 Alcoholic polyneuropathy; K31.89 Other diseases of stomach and duodenum; K92.1 Melena; Z88.8 Allergy status to other drugs, medicaments and biological substances; Z88.6 Allergy status to analgesic agent; Z98.84 Bariatric surgery status; K86.89 Other specified diseases of pancreas; Z87.440 Personal history of urinary (tract) infections; K70.30 Alcoholic cirrhosis of liver without ascites; I85.10 Secondary esophageal varices without bleeding; F10.239 Alcohol dependence with withdrawal, unspecified; Z87.891 Personal history of nicotine dependence; F11.11 Opioid abuse, in remission; Z79.899 Other long term (current) drug therapy; Z91.81 History of falling; E87.6 Hypokalemia; K91.1 Postgastric surgery syndromes; E86.0 Dehydration; G25.81 Restless legs syndrome; K76.6 Portal hypertension; E83.42 Hypomagnesemia; K58.0 Irritable bowel syndrome with diarrhea; W19.XXXA Unspecified fall, initial encounter; N39.0 Urinary tract infection, site not specified; E16.2 Hypoglycemia, unspecified

== ENCOUNTER 2020-05-30 01:20 | Inpatient (IN) ==
[2020-05-30] MEDS ORDERED: MULTI-VITAMIN INFUSION 10 ML, THIAMINE HCL 100 MG, FOLIC ACID 1 MG in SODIUM CHLORIDE 0... IV ONE (01:42)
[2020-05-30] MEDS ORDERED: LORazepam 0.5 MG/1 ML VIAL IV STA (01:42)
[2020-05-30 03:08] LABS: Influenza A virus by PCR Negative (Neg); Influenza B virus by PCR Negative (Neg); RSV by PCR Negative (Neg); SARS CoV2 RNA(COVID-19) InHosp NEGATIVE (Negative)
[2020-05-30 04:24] LABS: INR 1.2 (0.9-1.1); Partial Thromboplastin Ratio 1.1; Partial Thromboplastin Time 28.9 Seconds (21.0-31.0); Prothrombin Time 12.2 Seconds (9.0-12.0)
[2020-05-30 04:37] LABS: Alanine Aminotransferase 54 U/L (12-78); Albumin Globulin Ratio 0.7 (0.9-2); Albumin Level 2.9 gm/dl (3.4-5.0); Alkaline Phosphatase 256 U/L (45-117); Aspartate Aminotransferase 252 U/L (15-37); BUN Creatinine Ratio 10.5 (10-20); Bilirubin,Total 6.3 mg/dl (0.2-1); Blood Urea Nitrogen 3 mg/dl (7-18); Calcium 7.9 mg/dl (8.5-10.1); Carbon Dioxide 27 mmol/L (21-32); Chloride 108 mmol/L (98-107); Creatine Kinase 140 U/L (26-192); Creatinine Clr Calc Pharmacy 169.5 ml/min; Est GFR (African American) 145.2; Est GFR (Non-African American) 125.3; Globulin 4.3 gm/dl (2.5-4.0); Glucose 79 mg/dl (70-99); Lipase 114 U/L (73-393); Magnesium 1.9 mg/dl (1.8-2.4); Potassium 3.5 mmol/L (3.5-5.1); Sodium 145 mmol/L (136-145); Total Protein 7.2 gm/dl (6.4-8.2); Troponin I < 0.015 ng/ml (0-0.045)
[2020-05-30 04:51] LABS: Hematocrit (blood only) 36.6 % (37-47); Mean Corpuscular Hemoglobin 25.1 pg (25-34); Mean Corpuscular Hgb Conc 30.1 g/dL (32-36); Mean Corpuscular Volume 83.4 fL (80-100); Mean Platelet Volume 9.3 fL (7.4-10.4); Platelet Count 64 K/uL (130-400); RDW Coefficient of Variation 24.8 % (11.5-14.5); RDW Standard Deviation 75.7 fL (36.4-46.3); Red Blood Count 4.39 M/uL (4.2-5.4)
[2020-05-30 04:56] LABS: Anisocytosis Present; Basophils # (auto) 0.04 K/uL (0-0.2); Basophils % (auto) 2.7 %; Eosinophils # (auto) 0.03 K/uL (0-0.5); Giant Platelets 1+; Hypochromasia Present; Immature Granulocytes # (auto) 0.01 K/uL (0.00-0.02); Immature Granulocytes % (auto) 0.7 %; Lymphocytes # (auto) 0.49 K/uL (1.2-3.4); Lymphocytes % (auto) 32.7 %; Monocytes # (auto) 0.25 K/uL (0.11-0.59); Monocytes % (auto) 16.7 %; Neutrophils # (auto) 0.68 K/uL (1.4-6.5); Neutrophils % (auto) 45.2 %; Platelet Estimate Decreased (Normal); Target Cells 1+
[2020-05-30] MEDS ORDERED: ATIVAN IV ALCOHOL WITHDRAWL IV PRN (05:10)
[2020-05-30] MEDS ORDERED: GABAPENTIN 1200MG ALCOHOL WITHDRAWAL LOAD PO STA (05:10)
[2020-05-30] MEDS ORDERED: NITROGLYCERIN SL 0.4 MG/TAB TAB SL PRN (05:10)
[2020-05-30] MEDS ORDERED: GABAPENTIN 600 MG TAB PO ONE (05:10)
[2020-05-30] MEDS ORDERED: LORazepam 3 MG/6 ML VIAL IV PRN (05:10)
--- NOTE | 2020-05-30 05:43 | Emergency Department Note ---
History of Present Illness General Chief complaint: Fall Time Seen by Provider: 05/30/20 01:27 History of Present Illness Maximum Pain Intensity: 10 This is a 55-year-old female presenting to the emergency department from home via EMS for evaluation of fall that occurred 2 days ago. According to the patient and EMS the patient felt 2 days ago and has been laying on the ground ever since. The patient does have 2 persons that she lives with, but they were not able to assist her off the ground, and the patient adamantly refused to let them contact emergency services. The patient ultimately got to the point where she urinated and defecated herself, and this triggered them to call 911. The patient reports that she has pain everywhere and rates her overall discomfort a 10/10. The patient has a longstanding history of alcoholism and Polypharm drug abuse. The patient has not taken anything [id number] for her symptoms. She does not remember the last time she drank alcohol. She was positive for COVID-19 just over 1 month ago. Home Medications Medication Instructions Recorded Confirmed Type loperamide 2 mg PO Q8H PRN 09/11/19 05/30/20 History citalopram [Celexa] 20 mg PO DAILY 30 Days #60 tab 11/09/19 05/30/20 Rx colestipol 2 g PO BID 30 Days #120 tab 11/09/19 05/30/20 Rx dicyclomine 10 mg PO BID PRN #30 cap 11/09/19 05/30/20 Rx folic acid 1 mg PO QAM #30 tab 11/09/19 05/30/20 Rx gabapentin 400 mg PO TID 30 Days #90 cap 11/09/19 05/30/20 Rx lidocaine 1 patch TRANSDERMAL QAM #10 ea 11/09/19 05/30/20 Rx mirtazapine 15 mg PO HS 30 Days #30 tab 11/09/19 05/30/20 Rx pantoprazole 40 mg PO DAILY #30 tab 11/09/19 05/30/20 Rx ropinirole [Requip] 0.25 mg PO HS 30 Days #30 tab 11/09/19 05/30/20 Rx thiamine HCl (vitamin B1) [Vitamin 100 mg PO QAM #30 tab 11/09/19 05/30/20 Rx B-1] trazodone 50 mg PO HS #30 tab 11/09/19 05/30/20 Rx carvedilol 3.125 mg PO BID 05/30/20 05/30/20 History hydroxyzine HCl 25 - 50 mg PO BID 05/30/20 05/30/20 History bdtwqe-dksubknv-apsfiel [Creon] 1 cap PO TIDM 05/30/20 05/30/20 History Allergies Allergy/AdvReac Type Severity Reaction Status Date / Time diphenhydramine Allergy Severe seizures/it Verified 05/30/20 02:05 mya/tremo rs bupropion Allergy Intermediate Palpitation Verified 05/30/20 02:05 s clarithromycin Allergy Intermediate HIVES Verified 05/30/20 02:05 aspirin Allergy Mild hives/ringing Verified 05/30/20 02:05 of ears oxaprozin Allergy Mild nausea/vomi Verified 05/30/20 02:05 ting salicylates Allergy Mild ringing in Verified 05/30/20 02:05 ears/hives Past Med/Surg History Medical History Alcohol abuse hx of Anxiety Anxiety Chronic pain Cirrhosis Degenerative disc disease Esophageal varices with banding Factitious disorder Fibromyalgia Hypomagnesemia Lumbago Multiple sclerosis Opiate addiction HX OF AND NO PROBLEMS NOW Opiate misuse Pancreatitis Pelvis fracture HX OF CRUSHED PELVIS - FROM ACCIDENT FALLING INTO DUMPSTER CHRONIC PAIN Presence of intrathecal pump PUMP IN PLACE AND NOT WORKING IT WAS TURNED OFF!!! containing morphine 0.189mg/day and fentanyl 2.52mcg/day miminimal rate per pt "it doesnt work I haven't been able to afford the medication for 3 years now"?? 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 Surgical History History of cholecystectomy History of colonoscopy History of esophagogastroduodenoscopy (EGD) History of open reduction and internal fixation (ORIF) procedure left arm/left leg--hardware in place History of Jeffy-en-Y gastric bypass History of tooth extraction all teeth removed History of total hysterectomy with bilateral salpingo-oophorectomy (BSO) Hx of laparoscopy FOR ENDOMETRIOSIS Hx of resection of small bowel DUE TO ENDOMETRIOSIS Family History Other Aneurysm Cancer No family history of adverse response to anesthesia Stroke Social History Smoking Status: Unknown if ever smoked Second Hand Exposure: No; Hx Alcohol Use: Yes Alcohol type: beer Hx Substance Use: No Preferred Language: [place]ese Communication Ability: Effective 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 Beliefs That Will Affect Care: None marital status: Current Living Situation: Significant Other How many Children do You have: 3 Other Information That Helps Us Care for You: No Feels Safe at Home: Yes Safety Concerns: Feels Safe At This Time Assistive Devices: Denture - Upper Review of Systems A total of 10 systems reviewed and were otherwise negative Physical Exam Vital Signs Vital Signs - 24 hr 05/30/20 01:20 05/30/20 01:30 05/30/20 01:41 Temperature 36.9 C Temperature Source Oral Pulse Rate 78 76 Pulse Rate from SpO2 Sensor Respiratory Rate 24 24 Blood Pressure 142/82 H 142/82 H Blood Pressure Mean 102 102 Pulse Oximetry 93 83 L Oxygen Delivery Method Room Air Room Air Oxygen Flow Rate Sepsis Recent Fever Within 48 Hours No Sepsis New/Unexplained Change in Mental Status No Sepsis Action Taken by Nursing No Action Required 05/30/20 01:43 05/30/20 02:01 05/30/20 03:06 Temperature Temperature Source Pulse Rate 70 Pulse Rate from SpO2 Sensor Respiratory Rate 24 Blood Pressure 125/81 Blood Pressure Mean 95 Pulse Oximetry 96 95 99 Oxygen Delivery Method Nasal Cannula Nasal Cannula Nasal Cannula Oxygen Flow Rate 2 2 2 Sepsis Recent Fever Within 48 Hours Sepsis New/Unexplained Change in Mental Status Sepsis Action Taken by Nursing 05/30/20 03:30 05/30/20 04:00 05/30/20 04:30 Temperature Temperature Source Pulse Rate 58 L 59 L Pulse Rate from SpO2 Sensor 69 Respiratory Rate 25 H 14 13 Blood Pressure 123/82 120/70 141/77 H Blood Pressure Mean 95 86 98 Pulse Oximetry 97 98 98 Oxygen Delivery Method Oxygen Flow Rate Sepsis Recent Fever Within 48 Hours Sepsis New/Unexplained Change in Mental Status Sepsis Action Taken by Nursing VITALS: Vitals are noted on the nurse's note and reviewed by myself. Vital signs stable. GENERAL: Chronically ill-appearing white female who is quite jaundiced on presentation. HEAD: Normocephalic atraumatic. HEART: Regular rate and rhythm without murmurs gallops or rubs. LUNGS: Clear to auscultation bilaterally without wheezes, rales or rhonchi. No retractions or accessory muscle use. ABDOMEN: Positive normal bowel sounds x 4. Protuberant abdomen without distinct tenderness. MUSCULOSKELETAL: No muscle atrophy, erythema, or edema noted. NEURO: Patient was alert and oriented to person place and time. CN II through XII grossly intact. She does smell of alcohol Course Administered Medications Lipase/Protease/Amylase (Pancreaze (Lipase 10,500u) Cap) 1 cap PO TIDM MICHELLE Stop: 06/29/20 07:59 Last Admin: 05/31/20 18:37 Dose: Not Given Documented by: [id number] Admin: 05/31/20 14:16 Dose: Not Given Documented by: [id number] Admin: 05/31/20 07:53 Dose: 1 cap Documented by: [id number] Admin: 05/30/20 16:46 Dose: 1 cap Documented by: [id number] Admin: 05/30/20 15:29 Dose: Not Given Documented by: [id number] Admin: 05/30/20 08:31 Dose: 1 cap Documented by: [id number] Carvedilol (Carvedilol 3.125 Mg Tab) 3.125 mg PO BID MICHELLE Stop: 06/29/20 08:59 Last Admin: 05/31/20 19:57 Dose: 3.125 mg Documented by: [id number] Admin: 05/31/20 07:53 Dose: 3.125 mg Documented by: [id number] Admin: 05/30/20 21:07 Dose: 3.125 mg Documented by: [id number] Admin: 05/30/20 08:32 Dose: 3.125 mg Documented by: [id number] Citalopram Hydrobromide (Citalopram 20 Mg Tab) 20 mg PO DAILY MICHELLE Stop: 06/29/20 08:59 Last Admin: 05/31/20 07:52 Dose: 20 mg Documented by: [id number] Admin: 05/31/20 07:52 Dose: 20 mg Documented by: [id number] Admin: 05/30/20 08:32 Dose: 20 mg Documented by: [id number] Colestipol HCl (Colestipol Hcl 1 Gm Tab) 2 gm PO BID@1000,2200 MICHELLE Stop: 06/29/20 09:59 Last Admin: 05/31/20 11:08 Dose: 2 gm Documented by: [id number] Admin: 05/30/20 23:30 Dose: 2 gm Documented by: [id number] Admin: 05/30/20 10:05 Dose: 2 gm Documented by: [id number] Dicyclomine HCl (Dicyclomine Hcl 10 Mg Cap) 10 mg PO BID PRN PRN Reason: pain Stop: 06/29/20 05:09 Last Admin: 05/31/20 07:54 Dose: 10 mg Documented by: [id number] Admin: 05/31/20 00:01 Dose: 10 mg Documented by: [id number] Admin: 05/30/20 08:33 Dose: 10 mg Documented by: [id number] Hydroxyzine HCl (Hydroxyzine Hcl 25 Mg Tab) 25 - 50 mg PO BID PRN PRN Reason: Anxiety Stop: 06/29/20 08:59 Last Admin: 05/31/20 07:53 Dose: 25 mg Documented by: [id number] Admin: 05/30/20 08:32 Dose: 25 mg Documented by: [id number] Thiamine HCl 100 mg/ Syringe 10 mls @ 2 mls/min IV QAM MICHELLE Stop: 06/29/20 08:59 Last Admin: 05/31/20 07:52 Dose: 2 mls/min Documented by: [id number] Admin: 05/30/20 08:30 Dose: 2 mls/min Documented by: [id number] Folic Acid 1 mg/ Syringe 10 mls @ 5 mls/min IV QAM MICHELLE Stop: 06/29/20 08:59 Last Admin: 05/31/20 07:52 Dose: 5 mls/min Documented by: [id number] Admin: 05/30/20 08:30 Dose: 5 mls/min Documented by: [id number] Lorazepam (Ativan) 1 mg in 2 mls @ 2 mls/min IV UD PRN; Protocol PRN Reason: EtOH Withdrawl AWSS Score 6,7 Stop: 06/29/20 05:09 Last Admin: 05/31/20 12:17 Dose: 2 mls/min Documented by: [id number] Admin: 05/30/20 21:08 Dose: 2 mls/min Documented by: [id number] Admin: 05/30/20 08:31 Dose: 2 mls/min Documented by: [id number] Sodium Chloride (Nss 1000ml) 1,000 mls @ 50 mls/hr IV .Q20H MICHELLE Stop: 06/29/20 05:09 Last Admin: 05/31/20 19:56 Dose: 50 mls/hr Documented by: [id number] Infusion: 05/31/20 19:56 Dose: 50 mls/hr Documented by: [id number] Admin: 05/31/20 01:51 Dose: 50 mls/hr Documented by: [id number] Infusion: 05/31/20 01:51 Dose: 0 mls/hr Documented by: [id number] Admin: 05/30/20 05:48 Dose: 50 mls/hr Documented by: [id number] Lorazepam (Ativan) 2 mg in 4 mls @ 4 mls/min IV UD PRN; Protocol PRN Reason: EtOH Withdrawl AWSS Score 8,9 Stop: 06/29/20 05:09 Last Admin: 05/31/20 20:06 Dose: 4 mls/min Documented by: [id number] Admin: 05/31/20 14:17 Dose: 4 mls/min Documented by: [id number] Admin: 05/31/20 11:25 Dose: 4 mls/min Documented by: [id number] Admin: 05/31/20 07:51 Dose: 4 mls/min Documented by: [id number] Admin: 05/30/20 16:46 Dose: 4 mls/min Documented by: [id number] Lidocaine (Lidocaine 5% 1 Patch) 1 patch TD QAM [facility] Stop: 06/29/20 08:59 Last Admin: 05/31/20 07:54 Dose: Not Given Documented by: [id number] Admin: 05/30/20 08:34 Dose: 1 patch Documented by: [id number] Loperamide HCl (Loperamide Hcl 2 Mg Cap) 2 mg PO Q8H PRN PRN Reason: Diarrhea Stop: 06/29/20 05:09 Last Admin: 05/31/20 07:51 Dose: 2 mg Documented by: [id number] Mirtazapine (Mirtazapine Tab 15 Mg Tab) 15 mg PO HS [facility] Stop: 06/29/20 20:59 Last Admin: 05/31/20 19:57 Dose: 15 mg Documented by: [id number] Admin: 05/30/20 21:07 Dose: 15 mg Documented by: [id number] Miscellaneous (Remove Lidoderm Patch) 1 ea N/A DAILY@2100 [facility] Stop: 06/29/20 20:59 Last Admin: 05/31/20 19:58 Dose: 1 ea Documented by: [id number] Admin: 05/30/20 21:07 Dose: 1 ea Documented by: [id number] Pantoprazole Sodium (Pantoprazole 40 Mg Tab) 40 mg PO DAILY [facility] Stop: 06/29/20 08:59 Last Admin: 05/31/20 10:09 Dose: 40 mg Documented by: [id number] Admin: 05/30/20 08:32 Dose: 40 mg Documented by: [id number] Ropinirole HCl (Ropinirole Hcl 0.25 Mg Tablet) 0.25 mg PO [facility] Stop: 06/29/20 20:59 Last Admin: 05/31/20 19:58 Dose: 0.25 mg Documented by: [id number] Admin: 05/30/20 21:07 Dose: 0.25 mg Documented by: [id number] Trazodone HCl (Trazodone Hcl 50 Mg Tab) 50 mg PO [facility] Stop: 06/29/20 20:59 Last Admin: 05/31/20 19:57 Dose: 50 mg Documented by: [id number] Admin: 05/30/20 21:07 Dose: 50 mg Documented by: [id number] Discontinued Medications Gabapentin (Gabapentin 600 Mg Tab) 1,200 mg PO NOW ONE Stop: 05/30/20 05:11 Last Admin: 05/30/20 05:48 Dose: 1,200 mg Documented by: [id number] Gabapentin (Gabapentin 600 Mg Tab) 600 mg PO Q6H [facility] Stop: 05/30/20 16:39 Last Admin: 05/30/20 16:47 Dose: 600 mg Documented by: [id number] Admin: 05/30/20 11:00 Dose: 600 mg Documented by: [id number] Gabapentin (Gabapentin 600 Mg Tab) 600 mg PO Q8H [facility] Stop: 05/31/20 16:39 Last Admin: 05/31/20 18:37 Dose: Not Given Documented by: [id number] Admin: 05/31/20 07:53 Dose: 600 mg Documented by: [id number] Admin: 05/31/20 01:52 Dose: 600 mg Documented by: [id number] Lorazepam (Ativan) 0.5 mg in 1 mls @ 1 mls/min IV NOW STA Stop: 05/30/20 01:43 Last Admin: 05/30/20 04:01 Dose: 1 mls/min Documented by: [id number] Multivitamins 10 ml/ Thiamine HCl 100 mg/ Folic Acid 1 mg/Sodium Chloride 1,011.2 mls @ 1,011.2 mls/hr IV .Q1H ONE Stop: 05/30/20 02:41 Last Infusion: 05/30/20 05:04 Dose: 0 mls/hr Documented by: [id number] Admin: 05/30/20 04:02 Dose: 1,011.2 mls/hr Documented by: [id number] Magnesium Sulfate/Dextrose (Magnesium Sulfate / D5w) 1 gm in 100 mls @ 50 mls/hr IV Q2H MICHELLE Stop: 05/31/20 12:59 Last Infusion: 05/31/20 15:00 Dose: 0 mls/hr Documented by: [id number] Admin: 05/31/20 12:52 Dose: 50 mls/hr Documented by: [id number] Infusion: 05/31/20 12:35 Dose: 50 mls/hr Documented by: [id number] Infusion: 05/31/20 11:25 Dose: 50 mls/hr Documented by: [id number] Infusion: 05/31/20 10:20 Dose: 0 mls/hr Documented by: [id number] Admin: 05/31/20 09:30 Dose: 50 mls/hr Documented by: [id number] Potassium Phosphate 30 mmol/ (Sodium Chloride) 510 mls @ 88 mls/hr IV ONE ONE Stop: 05/31/20 14:47 Last Infusion: 05/31/20 15:25 Dose: 0 mls/hr Documented by: [id number] Admin: 05/31/20 09:30 Dose: 88 mls/hr Documented by: [id number] Medical Decision Making Differential Diagnosis Differential includes fall, rhabdomyolysis, alcohol intoxication, infection, acute coronary syndrome, myocardial infarction, CVA, TIA, anemia, infection, pneumonia, UTI, pyelonephritis, poor nutrition, dehydration, electrolyte disturbance,hypoglycemia. Laboratory Data Result diagrams: 05/31/20 06:24 05/31/20 15:40 Lab Results 0405/30/20 05/30/20 Range/Units 02:22 02:22 03:00 WBC (4.8-10.8) K/uL RBC (4.2-5.4) M/uL Hgb (12.0-16.0) g/dL Hct (37-47) % MCV (80-100) fL MCH (25-34) pg MCHC (32-36) g/dL RDW Std Deviation (36.4-46.3) fL RDW Coeff of Chetan (11.5-14.5) % Plt Count (130-400) K/uL MPV (7.4-10.4) fL Immature Gran % (Auto) % Neut % (Auto) % Lymph % (Auto) % [place] % (Auto) % Eos % (Auto) % Baso % (Auto) % Neut # (Auto) (1.4-6.5) K/uL Lymph # (Auto) (1.2-3.4) K/uL [place] # (Auto) (0.11-0.59) K/uL Eos # (Auto) (0-0.5) K/uL Baso # (Auto) (0-0.2) K/uL Immature Gran # (Auto) (0.00-0.02) K/uL Platelet Estimate (Normal) Giant Platelets Hypochromasia Anisocytosis Target Cells PT (9.0-12.0) Seconds INR (0.9-1.1) APTT (21.0-31.0) Seconds PTT Ratio Sodium (136-145) mmol/L Potassium (3.5-5.1) mmol/L Chloride (98-107) mmol/L Carbon Dioxide (21-32) mmol/L Anion Gap (3-11) BUN (7-18) mg/dl Creatinine (0.6-1.2) mg/dl Est Cr Clr Drug Dosing ml/min Est GFR ( Amer) Est GFR (Non-Af Amer) BUN/Creatinine Ratio (10-20) Glucose (70-99) mg/dl Calcium (8.5-10.1) mg/dl Magnesium (1.8-2.4) mg/dl Total Bilirubin (0.2-1) mg/dl AST (15-37) U/L ALT (12-78) U/L Alkaline Phosphatase (45-117) U/L Total Creatine Kinase (26-192) U/L Troponin I (0-0.045) ng/ml Total Protein (6.4-8.2) gm/dl Albumin (3.4-5.0) gm/dl Globulin (2.5-4.0) gm/dl Albumin/Globulin Ratio (0.9-2) Lipase (73-393) U/L Ethyl Alcohol mg/dL 344.0 H (0-3) mg/dl COVID-19 Eval Order CovFluRsv at [facility] SARS-CoV-2 (PCR) NEGATIVE (Negative) Influenza Type A (PCR) Negative (Neg) Influenza Type B (PCR) Negative (Neg) RSV (RT-PCR) Negative (Neg) 05/30/20 05/30/20 05/30/20 Range/Units 03:54 03:54 04:02 WBC 1.50 L (4.8-10.8) K/uL RBC 4.39 (4.2-5.4) M/uL Hgb 11.0 L (12.0-16.0) g/dL Hct 36.6 L (37-47) % MCV 83.4 (80-100) fL MCH 25.1 (25-34) pg MCHC 30.1 L (32-36) g/dL RDW Std Deviation 75.7 H (36.4-46.3) fL RDW Coeff of Chetan 24.8 H (11.5-14.5) % Plt Count 64 L (130-400) K/uL MPV 9.3 (7.4-10.4) fL Immature Gran % (Auto) 0.7 % Neut % (Auto) 45.2 % Lymph % (Auto) 32.7 % [place] % (Auto) 16.7 % Eos % (Auto) 2.0 % Baso % (Auto) 2.7 % Neut # (Auto) 0.68 L* (1.4-6.5) K/uL Lymph # (Auto) 0.49 L (1.2-3.4) K/uL [place] # (Auto) 0.25 (0.11-0.59) K/uL Eos # (Auto) 0.03 (0-0.5) K/uL Baso # (Auto) 0.04 (0-0.2) K/uL Immature Gran # (Auto) 0.01 (0.00-0.02) K/uL Platelet Estimate Decreased L (Normal) Giant Platelets 1+ Hypochromasia Present Anisocytosis Present Target Cells 1+ PT 12.2 H (9.0-12.0) Seconds INR 1.2 H (0.9-1.1) APTT 28.9 (21.0-31.0) Seconds PTT Ratio 1.1 Sodium 145 (136-145) mmol/L Potassium 3.5 (3.5-5.1) mmol/L Chloride 108 H (98-107) mmol/L Carbon Dioxide 27 (21-32) mmol/L Anion Gap 10.0 (3-11) BUN 3 L (7-18) mg/dl Creatinine 0.32 L (0.6-1.2) mg/dl Est Cr Clr Drug Dosing 169.5 ml/min Est GFR ( Amer) 145.2 Est GFR (Non-Af Amer) 125.3 BUN/Creatinine Ratio 10.5 (10-20) Glucose 79 (70-99) mg/dl Calcium 7.9 L (8.5-10.1) mg/dl Magnesium 1.9 (1.8-2.4) mg/dl Total Bilirubin 6.3 H (0.2-1) mg/dl AST 252 H (15-37) U/L ALT 54 (12-78) U/L Alkaline Phosphatase 256 H (45-117) U/L Total Creatine Kinase 140 (26-192) U/L Troponin I < 0.015 (0-0.045) ng/ml Total Protein 7.2 (6.4-8.2) gm/dl Albumin 2.9 L (3.4-5.0) gm/dl Globulin 4.3 H (2.5-4.0) gm/dl Albumin/Globulin Ratio 0.7 L (0.9-2) Lipase 114 (73-393) U/L Ethyl Alcohol mg/dL (0-3) mg/dl COVID-19 Eval Order SARS-CoV-2 (PCR) (Negative) Influenza Type A (PCR) (Neg) Influenza Type B (PCR) (Neg) RSV (RT-PCR) (Neg) Imaging Data Radiologist's Impression: Chest X-Ray 05/30/20 01:42 XR chest 1V portable HISTORY: Fall. Shortness of breath. COMPARISON: Chest 04/16/2020. FINDINGS: There are low lung volumes. No pneumothorax. No pleural effusions. The cardiac silhouette is mildly enlarged. No focal lung consolidations to suggest pneumonia. No evidence for pulmonary edema. No acute fractures within the visualized osseous structures. IMPRESSION: 1. Low lung volumes. 2. Mild cardiomegaly. 3. Otherwise, no acute process within the chest. ACT 112: Negative or not required by law. Electronically signed by: Brennen King M.D. 05/30/2020 7:[address] 05/30/20 03:15 CT OF THE CHEST WITHOUT IV CONTRAST CLINICAL HISTORY: SOB, atypical chest xray COMPARISON STUDY: Chest radiograph May 30, 2020. Chest CT September 11, 2019. CT DOSE: 149.99 mGy.cm TECHNIQUE: Axial images of the chest were obtained without IV contrast. Images were reviewed in the axial, sagittal, and coronal planes. IV contrast was not administered for this examination. Automated exposure control was utilized for the study. A dose lowering technique was utilized adhering to the principles of ALARA. FINDINGS: No enlarged axillary, mediastinal or hilar lymph nodes are present. There is no pericardial effusion. There is mild cardiomegaly. No pneumothorax or pleural effusion is noted. Dependent airspace opacities reflect atelectasis. No consolidation to suggest pneumonia. No suspicious pulmonary nodules are present. Multiple old thoracic spine compression deformities are unchanged since exam of September 11, 2019. Old bilateral rib fractures are present. Visualized portions of the upper abdomen demonstrate severe hepatic steatosis. 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 IMPRESSION: 1. No acute process within the chest. 2. Mild cardiomegaly. 3. Severe hepatic steatosis. ACT 112: Negative or not required by law. Electronically signed by: Benedict Vaughn M.D. 05/30/2020 6:27 AM ECG Data Additional Comments: Sinus rhythm with 1st degree A-V block @73bpm Low voltage QRS Prolonged QT Abnormal ECG When compared with ECG of 15-SEP-2019 09:37, CT interval has increased QT has lengthened MDM Narrative Physical exam and history were performed. Nursing notes, EMR, and Medication List were personally reviewed. Patient appears to have suffered a fall 2 days ago, and now presents to the ER several days later. On examination the patient is quite jaundiced, and does smell of alcohol. IV access was established and labs were obtained. She was hydrated with a banana bag and given 0.5 mg IV Ativan for possible withdrawal symptoms. She has had some intermittent episodes where she will drop to 83 to 90% oxygen and was put on 2 L nasal cannula. An order was placed for continuous cardiac monitoring. The monitor shows a rate of 82 with normal sinus rhythm. The patient's blood work is as above and was reviewed. She is mildly anemic with a very low white blood cell count. Lipase and transaminases are not significantly diagnostic, however her total biliruben is 6.3. INR is 1.2. Calculated meld score is 18 putting her at a roughly 6% 3-month mortality. CK is normal. Troponin x1 is negative. Imaging studies are as above and were reviewed by myself and radiology. Alcohol is elevated over 300. The patient was reevaluated multiple times with course of her stay. She does not seem well for discharge home. The patient is an alcoholic with fairly significant elevation of her bilirubin. She does not seem to have the capacity to take care of herself at home. The case was discussed with the on-call hospitalist who agreed to evaluate her here in the department. Please see their dictation for further patient course, plan, and disposition. The chart was completed utilizing [email or web address] Speech Voice Recognition Software. Grammatical errors, random word insertions, pronoun errors, and incomplete sentences are an occasional consequence of this system due to software limitations, ambient noise, and hardware issues. Any formal questions or concerns about the content, text, or information contained within the body of this dictation should be directly addressed to the provider for clarification. . Impression & Plan Fall, Alcohol withdrawal, Chronic alcohol abuse, Jaundice Discharge Plan Visit Data Chief Complaint: Fall ED Provider: Chel Mcfarland ED Midlevel Provider: Hao Savage Discharge Problem: Fall, Alcohol withdrawal, Chronic alcohol abuse, Jaundice Patient Disposition: Admitted As Inpatient Discharge Instructions Interventions: ED Discharge Assessment Last Done: 05/30/20 05:10
[2020-05-30] MEDS: SODIUM CHLORIDE 0.9% 1000ML 1,000 ML IV SCH (05:48)
--- NOTE | 2020-05-30 06:28 | CT Scan Report ---
CT OF THE CHEST WITHOUT IV CONTRAST CLINICAL HISTORY: SOB, atypical chest xray COMPARISON STUDY: Chest radiograph May 30, 2020. Chest CT September 11, 2019. CT DOSE: 149.99 mGy.cm TECHNIQUE: Axial images of the chest were obtained without IV contrast. Images were reviewed in the axial, sagittal, and coronal planes. IV contrast was not administered for this examination. Automat ed exposure control was utilized for the study. A dose lowering technique was utilized adhering to t he principles of ALARA. FINDINGS: No enlarged axillary, mediastinal or hilar lymph nodes are present. There is no pericardia l effusion. There is mild cardiomegaly. No pneumothorax or pleural effusion is noted. Dependent airsp [place] opacities reflect atelectasis. No consolidation to suggest pneumonia. No suspicious pulmonary nod ules are present. Multiple old thoracic spine compression deformities are unchanged since exam of Aug. Old bilateral rib fractures are present. Visualized portions of the upper abdomen demonst rate severe hepatic steatosis. Postoperative findings from Jeffy-en-Y gastric bypass are partially silas ged. IMPRESSION: 1. No acute process within the chest. 2. Mild cardiomegaly. 3. Severe hepatic steatosis. ACT 112: Negative or not required by law. Electronically signed by: Benedict Vaughn M.D. 05/30/2020 6:27 AM
--- NOTE | 2020-05-30 07:45 | History and Physical Report ---
DATE OF ADMISSION: 05/30/2020 CHIEF COMPLAINT: Fall and alcoholism. HISTORY OF PRESENT ILLNESS: This is a 55-year-old female with past medical history significant for chronic alcoholism, multiple admissions for alcohol abuse, end-stage liver disease, esophageal varices, portal hypertension, hypothyroidism, peripheral neuropathy, history of convulsions, depression, anxiety, restless legs syndrome, history of narcotic abuse, who was brought to the hospital because of fall at home. The patient fell in 05/28/2020 and she did not get up from the floor. She lives with her boyfriend and daughter. She did not allow them to call the hospital, but today she was having feces all over, so the family called and brought in here. Initially, she was complaining of pain all over. Currently, the patient received a dose of Ativan and she is sedated, could not get any history from the patient. Just got the labs and it is showing alcohol level 344, total bilirubin 6.3, AST of 252, ALT 54, alkaline phosphatase 256. SARS-CoV-2 PCR negative. The patient was diagnosed with COVID on 04/11/2020, currently COVID is negative. The patient's family members have COVID now currently. The patient is afebrile here and hemodynamically stable. Initially when she came in, she was saturating only 83% on room air, on 2 liters she is saturating 98% currently. CT chest mild posterior subpleural dependent atelectasis, mild right lower lobe atelectasis, remainder of the lung kerr are clear with no infiltrative process. Currently, could not get any history from the patient. ALLERGIES: DIPHENHYDRAMINE, BUPROPION, CLARITHROMYCIN, ASPIRIN, OXAPROZIN, SALICYLATES. PAST MEDICAL HISTORY: As mentioned above. PAST SURGICAL HISTORY: Colonoscopies, multiple EGDs, ERCP, gastric bypass for obesity, laparoscopic surgical gastrotomy, laparoscopic cholecystectomy, total abdominal hysterectomy with removal of tubes. MEDICATIONS: The patient is on Coreg 3.125 mg p.o. b.i.d., Celexa 20 mg p.o. daily, colestipol 2 grams p.o. b.i.d., dicyclomine 10 mg p.o. b.i.d. p.r.n., folic acid 1 mg p.o. a.m., gabapentin 400 mg p.o. t.i.d., hydroxyzine 25 mg p.o. b.i.d., lidocaine patch q.a.m., Creon 1 capsule p.o. t.i.d. with meals, loperamide 2 mg p.o. q. 8 hours p.r.n., mirtazapine 15 mg p.o. at bedtime, Protonix 40 mg p.o. daily, Requip 0.5 mg p.o. at bedtime, thiamine 100 mg p.o. daily, trazodone 50 mg p.o. at bedtime. FAMILY HISTORY: Significant for father had lung cancer, skin with metastasis; mother had stroke; maternal aunt has ovarian cancer. SOCIAL HISTORY: Currently lives with boyfriend and daughter. Former smoker. Drinks alcohol. Smokes marijuana as per the records. REVIEW OF SYSTEMS: Currently, the patient received Ativan and sedated, could not get any review of systems. PHYSICAL EXAMINATION: GENERAL: The patient is drowsy, not in acute distress. VITAL SIGNS: Temperature 36.9, pulse 65, respiratory rate 18, blood pressure 144/84, oxygen 83% on room air, 98% on 2 liters. HEENT: Pupils are equal, round, reactive to light. Icterus present. No pallor. NECK: No JVD seen, no neck masses seen. CARDIOVASCULAR: S1, S2 heard, regular rate and rhythm, no murmur, no gallop. RESPIRATORY SYSTEM: Normal AP diameter. No accessory muscle use. No wheezing, no crackles. ABDOMEN: Soft, bowel sounds present, nontender. No distention. CENTRAL NERVOUS SYSTEM: Drowsy, was talking prior to the Ativan. EXTREMITIES: No edema, no erythema seen. LABORATORY DATA: WBC 1.5, hemoglobin 11, hematocrit 36.6, platelets 64. PT 12.2, INR 1.2, APTT 28.9. Sodium 145, potassium 3.5, chloride 108, bicarbonate 27, BUN 3, creatinine 0.3, serum glucose 79, calcium is 7.9, magnesium 1.9, total bilirubin 6.3, AST 252, ALT 54, alkaline phosphatase 256, total creatinine kinase 140. Troponin I less than 0.015. Lipase 114. Ethyl alcohol 344. SARS-CoV-2 PCR negative. Influenza A and B PCR negative. RSV PCR negative. IMAGING DATA: CT chest, no acute findings, shows atelectasis. Chest x-ray, no acute findings seen. EKG: Sinus rhythm with first-degree AV block at a rate of 73. Prolonged QT at 508. ASSESSMENT AND PLAN: A 55-year-old female with chronic alcoholism, presents with fall and found to have alcohol level of 344. 1. Fall, mostly secondary to alcoholism: Seemed to have stayed in the floor for 1-2 days, but CK levels are okay. Will start on gabapentin, alcohol withdrawal protocol, and IV Ativan p.r.n. Received banana bag in the ER. We will place on IV thiamine, IV folic acid and monitor closely for withdrawal symptoms. 2. Pancytopenia secondary to end-stage liver disease: Follow the labs. 3. Alcoholic hepatitis: Total bilirubin 6.3, AST 252, ALT 54, alkaline phosphatase 256. We will follow repeat labs. We will consult GI in the a.m. for further recommendations. 4. Gastroesophageal reflux disease: Continue Protonix. 5. Restless legs syndrome: Continue Requip. 6. Seems to have diarrhea. We will follow the C diff. and stool cultures. Seems to be chronic, likely irritable bowel syndrome, also chronic pancreatic insufficiency. Continue Creon, continue colestipol. We will monitor electrolytes. 7. History of chronic pain, history of chronic fibromyalgia, history of opiate misuse. We will monitor. Continue Bentyl p.r.n. for now. 8. Prolonged qt. Avoid qt prolonging drugs.Follow repeat ekg. 9. Deep vein thrombosis prophylaxis: Sequential compression devices for now. 10. Disposition: Admit to tele floor. PT/OT prior to discharge. Social service to help with discharge planning. Level 1 full code. MTDD
--- NOTE | 2020-05-30 07:48 | XRay Report ---
XR chest 1V portable HISTORY: Fall. Shortness of breath. COMPARISON: Chest 04/16/2020. FINDINGS: There are low lung volumes. No pneumothorax. No pleural effusions. The cardiac silhouette i s mildly enlarged. No focal lung consolidations to suggest pneumonia. No evidence for pulmonary edema . No acute fractures within the visualized osseous structures. IMPRESSION: 1. Low lung volumes. 2. Mild cardiomegaly. 3. Otherwise, no acute process within the chest. ACT 112: Negative or not required by law. Electronically signed by: Brennen King M.D. 05/30/2020 7:47 AM
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
[2020-05-30] MEDS: THIAMINE HCL 100 MG in SYRINGE 9 ML IV SCH (08:30)
[2020-05-30] MEDS: FOLIC ACID 1 MG in SYRINGE 9.8 ML IV SCH (08:30)
[2020-05-30] MEDS: LORazepam 1 MG/2 ML VIAL IV PRN ×2 (08:31→21:08)
[2020-05-30] MEDS: PANCREAZE (LIPASE 10,500U) CAP PO SCH ×3 (08:31→16:46)
[2020-05-30] MEDS: hydrOXYzine HCl 25 MG TAB PO PRN (08:32)
[2020-05-30] MEDS: carvediloL 3.125 MG TAB PO SCH ×2 (08:32→21:07)
[2020-05-30] MEDS: CITALOPRAM 20 MG TAB PO SCH (08:32)
[2020-05-30] MEDS: PANTOprazole 40 MG TAB PO SCH (08:32)
[2020-05-30] MEDS: DICYCLOMINE HCL 10 MG CAP PO PRN (08:33)
[2020-05-30] MEDS: LIDOCAINE 5% 1 PATCH TD SCH (08:34)
[2020-05-30] MEDS: COLESTIPOL HCL 1 GM TAB PO SCH ×2 (10:05→23:30)
--- NOTE | 2020-05-30 10:08 | Ultrasound Report ---
ABDOMINAL ULTRASOUND, RIGHT UPPER QUADRANT HISTORY: elevated LFTs. COMPARISON: CT of the abdomen and pelvis October 19, 2019. MRCP April 10, 2018. Right upper quad rant ultrasound June 01, 2017. FINDINGS: This exam is compromised by suboptimal penetration. Hepatic echogenicity is increased. Ther e is mild dilatation of the common bile duct, measuring 1 cm. This may be related to previous cholecy stectomy. Pancreas is largely obscured. There is no right hydronephrosis. IMPRESSION: 1. Exam compromised by suboptimal penetration. Largely obscured pancreas. 2. Hepatic steatosis. 3. Mild dilatation of the common bile duct. This is likely related to previous cholecystectomy howeve r could be correlated with obstructive liver function tests. ACT 112: Negative or not required by law. Electronically signed by: Benedict Vaughn M.D. 05/30/2020 10:07 AM
[2020-05-30] MEDS: GABAPENTIN 600 MG TAB PO SCH ×2 (11:00→16:47)
--- NOTE | 2020-05-30 14:00 | Communication Note ---
Date of Service: May 30, 2020 55-year-old female with past medical history significant for chronic alcoholism, multiple admissions for alcohol abuse, end-stage liver disease, esophageal varices, portal hypertension, hypothyroidism, peripheral neuropathy, history of convulsions, depression, anxiety, restless legs syndrome, history of narcotic abuse, gastric bypass who was brought to the hospital because of fall at home Patient seen and examined this morning. Reported that since she had Covid last month, she had been been feeling ill with generalized weakness, shortness of breath with exertion. Reported some nausea vomiting episodes some days ago and stated that she may have had an episode of fever sometime ago. Reports that she still coughs since her Covid diagnosis Patient reported that she fell 2 days ago when her boyfriend called EMS yesterday. Patient has chronic diarrhea. Reported her last alcohol intake was on Tuesday [likely untrue as alcohol level was 344 on admission] Denies current illicit drug use or cigarette smoking Physical exam as detailed in H&P from this morning, except for patient being fully awake alert and oriented to person, place and month at the time of my evaluation, +icterus, subcutaneous device in RLQ Labs notable for leukopenia [chronic], anemia, hemoglobin of 11], platelet count of 64 total bilirubin of 6.3, AST of 252, ALT of 54, alkaline phosphatase of 256, alcohol level of 344, negative Covid test -Fall at home -Alcohol abuse -Liver cirrhosis with elevated LFT -Pancytopenia Agree with plans as detailed in H&P Continue alcohol withdrawal protocol Counselled patient about alcohol cessation and rehab Monitor LFT Monitor CBC GI recommendations appreciated f/u B12 level. Get c diff Plan to resume colestipol/creon
[2020-05-30] MEDS: LORazepam 2 MG/4 ML VIAL IV PRN (16:46)
[2020-05-30] MEDS: rOPINIRole HCL 0.25 MG TABLET PO SCH (21:07)
[2020-05-30] MEDS: traZODone HCL 50 MG TAB PO SCH (21:07)
[2020-05-30] MEDS: MIRTAZAPINE TAB 15 MG TAB PO SCH (21:07)
[2020-05-31] MEDS: DICYCLOMINE HCL 10 MG CAP PO PRN ×2 (00:01→07:54)
[2020-05-31] MEDS: SODIUM CHLORIDE 0.9% 1000ML 1,000 ML IV SCH ×2 (01:51→19:56)
[2020-05-31] MEDS: GABAPENTIN 600 MG TAB PO SCH ×3 (01:52→18:37)
--- NOTE | 2020-05-31 06:09 | Electrocardiogram Report ---
Test Reason : Blood Pressure : / mmHG Vent. Rate : 073 BPM Atrial Rate : 073 BPM P-R Int : 220 ms QRS Dur : 102 ms QT Int : 462 ms P-R-T Axes : 019 -25 043 degrees QTc Int : 508 ms Sinus rhythm with 1st degree A-V block Low voltage QRS Prolonged QT Abnormal ECG When compared with ECG of 15-SEP-2019 09:37, CO interval has increased QT has lengthened Confirmed by Roderick De Leon ([id number]) on 05/31/2020 6:09:27 AM Referred By: REFERRED SELF Confirmed By:Roderick De Leon
[2020-05-31 06:56] LABS: Mean Corpuscular Hgb Conc 29.4 g/dL (32-36); Nucleated RBC # (auto) 0.03 K/uL (0-0); Nucleated RBC % (auto) 1.6 %
[2020-05-31 07:22] LABS: Hematocrit (blood only) 33.3 % (37-47); Hemoglobin 9.8 g/dL (12.0-16.0); Mean Corpuscular Hemoglobin 24.9 pg (25-34); Mean Corpuscular Volume 84.7 fL (80-100); Platelet Count 47 K/uL (130-400); RDW Standard Deviation 74.4 fL (36.4-46.3); Red Blood Count 3.93 M/uL (4.2-5.4); White Blood Count 1.65 K/uL (4.8-10.8)
[2020-05-31 07:23] LABS: Anisocytosis Present; Basophils # (auto) 0.01 K/uL (0-0.2); Basophils % (auto) 0.6 %; Eosinophils # (auto) 0.01 K/uL (0-0.5); Eosinophils % (auto) 0.6 %; Immature Granulocytes # (auto) 0.01 K/uL (0.00-0.02); Immature Granulocytes % (auto) 0.6 %; Lymphocytes # (auto) 0.32 K/uL (1.2-3.4); Lymphocytes % (auto) 19.4 %; Monocytes # (auto) 0.17 K/uL (0.11-0.59); Monocytes % (auto) 10.3 %; Neutrophils # (auto) 1.13 K/uL (1.4-6.5); Neutrophils % (auto) 68.5 %; Platelet Estimate Decreased (Normal); Polychromasia 1+; Target Cells 1+
[2020-05-31 07:29] LABS: Albumin Level 2.8 gm/dl (3.4-5.0); BUN Creatinine Ratio 13.5 (10-20); Bilirubin,Total 7.9 mg/dl (0.2-1); Calcium 7.7 mg/dl (8.5-10.1); Creatinine Clr Calc Pharmacy 146.6 ml/min; Est GFR (African American) 138.5; Est GFR (Non-African American) 119.5; Magnesium 1.5 mg/dl (1.8-2.4); Phosphorus 2.1 mg/dl (2.5-4.9); Potassium 3.2 mmol/L (3.5-5.1); Total Protein 6.5 gm/dl (6.4-8.2)
[2020-05-31] MEDS: LOPERAMIDE HCL 2 MG CAP PO PRN (07:51)
[2020-05-31] MEDS: LORazepam 2 MG/4 ML VIAL IV PRN ×5 (07:51→22:19)
[2020-05-31] MEDS: THIAMINE HCL 100 MG in SYRINGE 9 ML IV SCH (07:52)
[2020-05-31] MEDS: CITALOPRAM 20 MG TAB PO SCH (07:52)
[2020-05-31] MEDS: FOLIC ACID 1 MG in SYRINGE 9.8 ML IV SCH (07:52)
[2020-05-31] MEDS: PANCREAZE (LIPASE 10,500U) CAP PO SCH ×3 (07:53→18:37)
[2020-05-31] MEDS: carvediloL 3.125 MG TAB PO SCH ×2 (07:53→19:57)
[2020-05-31] MEDS: hydrOXYzine HCl 25 MG TAB PO PRN ×2 (07:53→21:58)
[2020-05-31] MEDS: LIDOCAINE 5% 1 PATCH TD SCH (07:54)
[2020-05-31 08:18] LABS: Bilirubin Direct 5.8 mg/dl (0-0.2)
[2020-05-31 08:23] LABS: Folate (Folic Acid) > 20.00 ng/ml (>5.38); Vitamin B12 1430 pg/ml (193-986)
[2020-05-31] MEDS ORDERED: POTASSIUM PHOS 3 MMOL/1 ML INFUSION IV STA (08:35)
[2020-05-31] MEDS ORDERED: POTASSIUM PHOSPHATE 30 MMOL in SODIUM CHLORIDE 0.9% 500 ML IV ONE (09:00)
[2020-05-31] MEDS: MAGNESIUM SULFATE / D5W 1 GM/100 ML BAG IV SCH ×2 (09:30→12:52)
--- NOTE | 2020-05-31 09:57 | Hospitalist Progress Note ---
Date of Service May 31, 2020 Assessment & Plan (1) Falls: (2) Chronic alcohol abuse: (3) Alcohol withdrawal: Patient has a history of chronic alcoholism with multiple admissions for abuse and withdrawal. Continue alcohol withdrawal management protocol Counseled patient on need for alcohol cessation Continue thiamine and folate Once medically stable, will get PT/OT evaluation (4) Elevated LFTs: (5) Cirrhosis: Patient has history of alcohol abuse, cirrhosis complicated by esophageal varices and ascites. Patient also has history of RYGB Also has chronic diarrhea. LFTs still elevated with bilirubin increasing to 7.9 from 6.3 yesterday GI recommendations appreciated. We will continue to monitor Continue to monitor for signs of encephalopathy. None at this time C. difficile test is negative. Continue home colestipol and Creon Continue pantoprazole daily Monitor bowel movement. I's and O's (6) Hypomagnesemia: (7) Hypophosphatemia: (8) Hypokalemia: Potassium was 3.2 today, magnesium is 1.5, phosphorus is 2.1. Calcium is 7.7.corrected calcium for hypoalbuminemia is 8.7 Electrolyte abnormalities likely due to alcohol abuse and diarrhea Replete electrolytes and monitor Patient also had prolonged QT on admission. Monitor with serial EKG. Avoid QT prolonging meds (9) Pancytopenia: Chronic pancytopenia due to alcohol abuse, cirrhosis and history of RYGB Monitor cell counts. No fever or sign of infection at this time (10) DVT prophylaxis: SCD for now Admission and Anticipated Discharge Date Admission Date: May 30, 2020 Subjective Patient seen and examined. Reports aches all over. Reports cough. Denies shortness of breath, chest pain No fever since admission. Denies chills. No nausea this morning no vomiting. Has chronic diarrhea. Denies dysuria, frequency, urgency Reports tremors and dizziness. No headache. Reports generalized weakness Physical Exam Constitutional: + well hydrated; no acute distress Tremulous Eyes: + conjunctival abnormality (Icteric) ENMT: external ear and nose normal, oropharynx normal Respiratory: normal respiratory effort, lungs clear to auscultation Cardiovascular: Rate/Rhythm: regular rate and regular rhythm S1-S2 Gastrointestinal (Abdomen): normal bowel sounds, soft, nontender, no hepatosplenomegaly Musculoskeletal: no cyanosis or clubbing, extremities motor strength 5/5 Neurologic: PERRL, EOMI, accommodation nl, no face palsy, no dysarthria Alert and oriented to person, place and year Psychiatric: Orientation: alert, oriented to person and oriented to place Affect: + anxious affect Genitourinary: No CVA tenderness Results & Data Results & Data ([facility]) Vital Signs (Past 12 Hours) Vital Signs Temp Pulse Pulse Resp BP Pulse Ox Pulse Ox 05/31/20 08:00 69 05/31/20 07:09 37.2 C 90 20 127/81 90 05/31/20 03:54 37.1 C 62 20 105/68 94 05/31/20 02:00 96 05/30/20 23:06 37.3 C 65 18 109/68 90 Laboratory Results Laboratory Results - last 24 hr 05/30/20 05/31/20 05/31/20 17:23 06:24 06:24 WBC RBC Hgb Hct MCV MCH MCHC RDW Std Deviation RDW Coeff of Chetan Plt Count Immature Gran % (Auto) Neut % (Auto) Lymph % (Auto) [place] % (Auto) Eos % (Auto) Baso % (Auto) Neut # (Auto) Lymph # (Auto) [place] # (Auto) Eos # (Auto) Baso # (Auto) Immature Gran # (Auto) Absolute Nucleated RBC Nucleated RBC % (auto) Platelet Estimate Polychromasia Anisocytosis Target Cells Sodium 138 Potassium 3.2 L Chloride 105 Carbon Dioxide 21 Anion Gap 13.0 H BUN 5 L Creatinine 0.37 L Est Cr Clr Drug Dosing 146.6 Est GFR ( Amer) 138.5 Est GFR (Non-Af Amer) 119.5 BUN/Creatinine Ratio 13.5 Glucose 92 Calcium 7.7 L Phosphorus 2.1 L Magnesium 1.5 L Total Bilirubin 7.9 H Direct Bilirubin 5.8 H AST 245 H ALT 54 Alkaline Phosphatase 244 H Total Protein 6.5 Albumin 2.8 L Vitamin B12 1430 H Folate > 20.00 Stl C. diff Tox B Gene Negative Cdiff Gene 05/31/20 05/31/20 06:24 07:56 WBC 1.65 L RBC 3.93 L Hgb 9.8 L Hct 33.3 L MCV 84.7 MCH 24.9 L MCHC 29.4 L RDW Std Deviation 74.4 H RDW Coeff of Chetan 24.0 H Plt Count 47 L Immature Gran % (Auto) 0.6 Neut % (Auto) 68.5 Lymph % (Auto) 19.4 [place] % (Auto) 10.3 Eos % (Auto) 0.6 Baso % (Auto) 0.6 Neut # (Auto) 1.13 L Lymph # (Auto) 0.32 L [place] # (Auto) 0.17 Eos # (Auto) 0.01 Baso # (Auto) 0.01 Immature Gran # (Auto) 0.01 Absolute Nucleated RBC 0.03 H Nucleated RBC % (auto) 1.6 Platelet Estimate Decreased L Polychromasia 1+ Anisocytosis Present Target Cells 1+ Sodium Potassium Chloride Carbon Dioxide Anion Gap BUN Creatinine Est Cr Clr Drug Dosing Est GFR ( Amer) Est GFR (Non-Af Amer) BUN/Creatinine Ratio Glucose Calcium Phosphorus Magnesium Total Bilirubin Direct Bilirubin Cancelled AST ALT Alkaline Phosphatase Total Protein Albumin Vitamin B12 Folate Stl C. diff Tox B Gene (1) Cirrhosis Hepatic cirrhosis type: alcoholic cirrhosis
[2020-05-31] MEDS: PANTOprazole 40 MG TAB PO SCH (10:09)
[2020-05-31] MEDS: COLESTIPOL HCL 1 GM TAB PO SCH ×2 (11:08→21:58)
[2020-05-31] MEDS: LORazepam 1 MG/2 ML VIAL IV PRN (12:17)
[2020-05-31 16:21] LABS: Magnesium 2.4 mg/dl (1.8-2.4); Phosphorus 3.4 mg/dl (2.5-4.9)
[2020-05-31 16:23] LABS: BUN Creatinine Ratio 12.1 (10-20); Calcium 8.1 mg/dl (8.5-10.1); Creatinine Clr Calc Pharmacy 108.5 ml/min; Est GFR (African American) 125.4; Est GFR (Non-African American) 108.2; Potassium 3.5 mmol/L (3.5-5.1)
[2020-05-31] MEDS: traZODone HCL 50 MG TAB PO SCH (19:57)
[2020-05-31] MEDS: MIRTAZAPINE TAB 15 MG TAB PO SCH (19:57)
[2020-05-31] MEDS: rOPINIRole HCL 0.25 MG TABLET PO SCH (19:58)
[2020-06-01] MEDS: LORazepam 2 MG/4 ML VIAL IV PRN ×6 (01:20→23:53)
[2020-06-01] MEDS: GABAPENTIN 600 MG TAB PO SCH ×2 (04:48→16:53)
[2020-06-01 07:21] LABS: Mean Corpuscular Hemoglobin 25.3 pg (25-34); Mean Corpuscular Hgb Conc 29.4 g/dL (32-36); Mean Corpuscular Volume 85.9 fL (80-100); RDW Coefficient of Variation 23.5 % (11.5-14.5); RDW Standard Deviation 73.4 fL (36.4-46.3); Red Blood Count 3.96 M/uL (4.2-5.4); White Blood Count 1.49 K/uL (4.8-10.8)
[2020-06-01 07:26] LABS: Mean Platelet Volume 10.4 fL (7.4-10.4); Platelet Count 55 K/uL (130-400)
[2020-06-01 07:41] LABS: INR 1.2 (0.9-1.1); Prothrombin Time 12.4 Seconds (9.0-12.0)
[2020-06-01 07:50] LABS: Albumin Level 2.7 gm/dl (3.4-5.0); BUN Creatinine Ratio 12.6 (10-20); Calcium 7.9 mg/dl (8.5-10.1); Creatinine Clr Calc Pharmacy 150.7 ml/min; Est GFR (African American) 139.7; Est GFR (Non-African American) 120.5; Magnesium 2.2 mg/dl (1.8-2.4); Potassium 2.6 mmol/L (3.5-5.1)
[2020-06-01 07:58] LABS: Albumin Globulin Ratio 0.7 (0.9-2); Bilirubin,Total 8.2 mg/dl (0.2-1); Globulin 3.8 gm/dl (2.5-4.0); Phosphorus 1.4 mg/dl (2.5-4.9); Total Protein 6.5 gm/dl (6.4-8.2)
[2020-06-01] MEDS ORDERED: POTASSIUM PHOS 3 MMOL/1 ML INFUSION IV STA (08:16)
[2020-06-01] MEDS: THIAMINE HCL 100 MG in SYRINGE 9 ML IV SCH (08:17)
[2020-06-01] MEDS: FOLIC ACID 1 MG in SYRINGE 9.8 ML IV SCH (08:17)
[2020-06-01] MEDS: LIDOCAINE 5% 1 PATCH TD SCH (08:18)
[2020-06-01] MEDS: PANTOprazole 40 MG TAB PO SCH (08:18)
[2020-06-01] MEDS: carvediloL 3.125 MG TAB PO SCH ×2 (08:19→21:14)
[2020-06-01] MEDS: PANCREAZE (LIPASE 10,500U) CAP PO SCH ×3 (08:19→16:53)
[2020-06-01] MEDS ORDERED: POTASSIUM PHOSPHATE 40 MMOL in SODIUM CHLORIDE 0.9% 1000ML 1,000 ML IV ONE (09:00)
[2020-06-01] MEDS: POTASSIUM CHLORIDE PWD 20 MEQ PACK PO SCH (09:08)
[2020-06-01] MEDS ORDERED: chlordiazePOXIDE HCl 25 MG CAP PO ONE ×2 (10:07→12:30)
[2020-06-01] MEDS: COLESTIPOL HCL 1 GM TAB PO SCH ×2 (10:14→22:32)
--- NOTE | 2020-06-01 11:02 | Hospitalist Progress Note ---
Date of Service June 01, 2020 Assessment & Plan (1) Falls: (2) Chronic alcohol abuse: (3) Alcohol withdrawal: Patient has a history of chronic alcoholism with multiple admissions for abuse and withdrawal. Continue alcohol withdrawal management protocol Patient quite tremulous and anxious Continue ativan per protocol Give one dose of librium 25 and monitor Continue gabapentin Continue thiamine and folate Once medically stable, will get PT/OT evaluation (4) Elevated LFTs: (5) Cirrhosis: Patient has history of alcohol abuse, cirrhosis complicated by esophageal varices and ascites. Patient also has history of RYGB Also has chronic diarrhea. LFTs still elevated with bilirubin increasing to 8.2, AST/AlP mildly improved GI recommendations appreciated. We will continue to monitor Continue to monitor for signs of encephalopathy. Monitor BM to ensure 2-3 BM per day C. difficile test is negative. Continue home colestipol and Creon Continue pantoprazole daily (6) Hypomagnesemia: (7) Hypophosphatemia: (8) Hypokalemia: Potassium was 2.6 today, magnesium is 2.2, phosphorus is 1.5. Calcium is 7.9.corrected calcium for hypoalbuminemia is 8.9 Electrolyte abnormalities likely due to alcohol abuse Replete electrolytes and monitor Patient also had prolonged QT . Monitor with serial EKG. Avoid QT prolonging meds (9) Pancytopenia: Chronic pancytopenia due to alcohol abuse, cirrhosis and history of RYGB Monitor cell counts. No fever or sign of infection at this time (10) DVT prophylaxis: SCD for now Admission and Anticipated Discharge Date Admission Date: May 30, 2020 Subjective Patient seen and examined this morning. Quite tremulous and anxious. Alert and oriented to person and place. Reported some hallucinations yesterday [visual] No nausea at this time. No vomiting today. Has only had 1 bowel movement today. No fevers, chills Reports pain all over No dysuria, frequency, urgency, hematuria No cough, shortness of breath or chest pain Physical Exam Constitutional: + well hydrated; no acute distress Eyes: + conjunctival abnormality (Icteric) ENMT: external ear and nose normal, oropharynx normal Respiratory: normal respiratory effort, lungs clear to auscultation Cardiovascular: Rate/Rhythm: regular rate and regular rhythm S1 S2 Gastrointestinal (Abdomen): normal bowel sounds, soft, nontender, no hepatosplenomegaly subcutaneous device in RLQ Musculoskeletal: no cyanosis or clubbing, extremities motor strength 5/5 Neurologic: PERRL, EOMI, accommodation nl, no face palsy, no dysarthria Quite tremulous Psychiatric: Orientation: alert, oriented to person and oriented to place Motor Behavior: + tremor Affect: + anxious affect Thought Process: + tangential thought process Genitourinary: no CVA tenderness Results & Data Results & Data ([facility]) Vital Signs (Past 12 Hours) Vital Signs Temp Pulse Resp BP Pulse Ox 06/01/20 07:18 36.6 C 73 22 135/86 97 06/01/20 03:58 36.6 C 67 20 160/84 H 98 06/01/20 00:13 37.1 C 82 18 155/85 H 96 Laboratory Results Laboratory Results - last 24 hr 05/31/20 05/31/20 06/01/20 15:40 15:40 07:07 WBC 1.49 L RBC 3.96 L Hgb 10.0 L Hct 34.0 L MCV 85.9 MCH 25.3 MCHC 29.4 L RDW Std Deviation 73.4 H RDW Coeff of Chetan 23.5 H Plt Count 55 L MPV 10.4 PT INR Sodium 138 Potassium 3.5 Chloride 106 Carbon Dioxide 20 L Anion Gap 12.0 H BUN 6 L Creatinine 0.50 L Est Cr Clr Drug Dosing 108.5 Est GFR ( Amer) 125.4 Est GFR (Non-Af Amer) 108.2 BUN/Creatinine Ratio 12.1 Glucose 120 H Calcium 8.1 L Phosphorus 3.4 D Magnesium 2.4 Total Bilirubin AST ALT Alkaline Phosphatase Total Protein Albumin Globulin Albumin/Globulin Ratio 06/01/20 06/01/20 07:07 07:07 WBC RBC Hgb Hct MCV MCH MCHC RDW Std Deviation RDW Coeff of Chetan Plt Count MPV PT 12.4 H INR 1.2 H Sodium 140 Potassium 2.6 L D Chloride 106 Carbon Dioxide 24 Anion Gap 10.0 BUN 5 L Creatinine 0.36 L Est Cr Clr Drug Dosing 150.7 Est GFR ( Amer) 139.7 Est GFR (Non-Af Amer) 120.5 BUN/Creatinine Ratio 12.6 Glucose 101 H Calcium 7.9 L Phosphorus 1.4 L* D Magnesium 2.2 Total Bilirubin 8.2 H AST 213 H ALT 58 Alkaline Phosphatase 228 H Total Protein 6.5 Albumin 2.7 L Globulin 3.8 Albumin/Globulin Ratio 0.7 L (1) Cirrhosis Hepatic cirrhosis type: alcoholic cirrhosis
--- NOTE | 2020-06-01 13:09 | Electrocardiogram Report ---
Test Reason : Blood Pressure : / mmHG Vent. Rate : 065 BPM Atrial Rate : 065 BPM P-R Int : 226 ms QRS Dur : 096 ms QT Int : 514 ms P-R-T Axes : 035 -23 018 degrees QTc Int : 534 ms Poor data quality, interpretation may be adversely affected Sinus rhythm with 1st degree A-V block Abnormal ECG When compared with ECG of 30-MAY-2020 03:11, Nonspecific T wave abnormality no longer evident in Anterior leads Confirmed by Jose Alberto Blakely ([id number] on 06/01/2020 1:08:57 PM Referred By: REFERRED SELF Confirmed By:Sunil Blakely
[2020-06-01 15:53] LABS: Phosphorus 3.5 mg/dl (2.5-4.9)
[2020-06-01] MEDS ORDERED: POTASSIUM CHLORIDE PWD 20 MEQ PACK PO ONE (15:53)
[2020-06-01] MEDS: DICYCLOMINE HCL 10 MG CAP PO PRN (21:14)
[2020-06-01] MEDS: hydrOXYzine HCl 25 MG TAB PO PRN (21:14)
[2020-06-01] MEDS: rOPINIRole HCL 0.25 MG TABLET PO SCH (21:15)
[2020-06-01] MEDS: traZODone HCL 50 MG TAB PO SCH (21:15)
[2020-06-01] MEDS: MIRTAZAPINE TAB 15 MG TAB PO SCH (21:16)
[2020-06-01] MEDS: LOPERAMIDE HCL 2 MG CAP PO PRN (23:52)
[2020-06-02] MEDS: LORazepam 2 MG/4 ML VIAL IV PRN ×4 (04:10→15:54)
[2020-06-02 07:08] LABS: Mean Corpuscular Hgb Conc 29.8 g/dL (32-36)
[2020-06-02 07:17] LABS: INR 1.2 (0.9-1.1); Prothrombin Time 12.3 Seconds (9.0-12.0)
[2020-06-02 07:42] LABS: Hematocrit (blood only) 34.2 % (37-47); Hemoglobin 10.2 g/dL (12.0-16.0); Mean Corpuscular Hemoglobin 25.8 pg (25-34); Mean Corpuscular Volume 86.6 fL (80-100); RDW Standard Deviation 74.9 fL (36.4-46.3); Red Blood Count 3.95 M/uL (4.2-5.4); White Blood Count 1.28 K/uL (4.8-10.8)
[2020-06-02 07:45] LABS: Platelet Count 48 K/uL (130-400); Platelet Estimate Decreased (Normal)
[2020-06-02] MEDS: THIAMINE HCL 100 MG in SYRINGE 9 ML IV SCH (08:00)
[2020-06-02] MEDS: DICYCLOMINE HCL 10 MG CAP PO PRN (08:00)
[2020-06-02] MEDS: FOLIC ACID 1 MG in SYRINGE 9.8 ML IV SCH (08:00)
[2020-06-02 08:01] LABS: Albumin Globulin Ratio 0.7 (0.9-2); Albumin Level 2.9 gm/dl (3.4-5.0); BUN Creatinine Ratio 9.4 (10-20); Bilirubin,Total 8.9 mg/dl (0.2-1); Calcium 8.4 mg/dl (8.5-10.1); Creatinine Clr Calc Pharmacy 169.5 ml/min; Est GFR (African American) 145.2; Est GFR (Non-African American) 125.3; Globulin 3.9 gm/dl (2.5-4.0); Phosphorus 2.6 mg/dl (2.5-4.9); Potassium 3.1 mmol/L (3.5-5.1); Total Protein 6.8 gm/dl (6.4-8.2)
[2020-06-02] MEDS: PANCREAZE (LIPASE 10,500U) CAP PO SCH ×3 (08:01→17:11)
[2020-06-02] MEDS: carvediloL 3.125 MG TAB PO SCH ×2 (08:01→21:46)
[2020-06-02] MEDS: COLESTIPOL HCL 1 GM TAB PO SCH ×2 (08:01→21:47)
[2020-06-02] MEDS: POTASSIUM CHLORIDE PWD 20 MEQ PACK PO SCH (08:01)
[2020-06-02] MEDS: CITALOPRAM 20 MG TAB PO SCH (08:01)
[2020-06-02] MEDS: PANTOprazole 40 MG TAB PO SCH (08:01)
[2020-06-02] MEDS: LIDOCAINE 5% 1 PATCH TD SCH (08:02)
[2020-06-02] MEDS: LOPERAMIDE HCL 2 MG CAP PO PRN (08:05)
[2020-06-02] MEDS: POTASSIUM CHLORIDE / WTR 10 MEQ/100 ML PLCT IV SCH ×4 (08:47→12:42)
--- NOTE | 2020-06-02 09:06 | Gastroenterology Progress Note ---
Date of Service June 02, 2020 Assessment & Plan (1) Cirrhosis: (2) Elevated LFTs: This is a 55 y/o female with h/o ETOH abuse, cirrhosis complicated by EV, ascites, h/o RYGB admitted after a fall and ETOH intoxication. Noted elevated LFTs w suspected ETOH hepatitis. MELD 15. Maddrey Discriminant Function score 10. She appears confused today, barely answering questions but can mumble name. - Infectious workup: obtain urine, blood cx, repeat CXR. - Check ammonia level - Head CT - Strict ETOH cessation - Trend LFTs, avoid hepatotoxic meds - Monitor renal, coag functions, mental status - Continue Protonix 40mg daily Admission and Anticipated Discharge Date Admission Date: May 30, 2020 Supervising Physician Co-Signing Physician Notes I performed a history and physical examination of the patient today, including specifically on physical exam - soft abdomen. I have discussed the patient's management with the advanced practitioner. Please refer to the nurse practitioner's note for the documented findings and plan of care. Head CT negative, Ammonia normal, no evidence of hepatic encephalopathy. Recall GI if needed. Subjective Pt confused, can mostly only tell me her name. Review of Systems Review of Systems: Unobtainable due to cognitive status Physical Exam Constitutional: + ill appearing, cooperative and comfortable Eyes: PERRL, conjunctivae normal, anicteric sclerae ENMT: external ear and nose normal, oropharynx normal Respiratory: no respiratory distress and does not use accessory muscles Auscultation: + diminished lung sounds Cardiovascular: RRR, no murmur, no edema Gastrointestinal (Abdomen): normal bowel sounds, soft, nontender, no hepatosplenomegaly RUQ pain pump noted Skin: no rashes, warm and dry + jaundice Neurologic: Motor/Sensory: no asterixis Psychiatric: Confused Lymphatic: no lymphedema Results & Data ([facility]) Vital Signs (Past 12 Hours) Vital Signs Temp Pulse Resp BP Pulse Ox 06/02/20 08:01 36.4 C L 69 18 127/82 98 06/02/20 03:36 36.4 C L 69 20 142/89 H 99 06/01/20 23:02 36.4 C L 99 H 20 154/99 H 98 (1) Cirrhosis Hepatic cirrhosis type: alcoholic cirrhosis
--- NOTE | 2020-06-02 10:02 | CT Scan Report ---
CT SCAN OF THE BRAIN WITHOUT IV CONTRAST CLINICAL HISTORY: Change in mental status. COMPARISON STUDY: CT of the brain dated 10/19/2019. TECHNIQUE: Unenhanced axial CT scan of the brain is performed from the vertex to the skull base. A d ose lowering technique was utilized adhering to the principles of ALARA. CT DOSE: 729.78 mGycm FINDINGS: Brain parenchyma: The brain parenchyma is normal in appearance. There is no hemorrhage, mass effect, or evidence of acute territorial ischemia by CT criteria. Sanchez-white matter differentiation is preser isacc. No extra-axial fluid collection is seen. Ventricles, sulci, cisterns: Normal in configuration. Intracranial vasculature: The visualized intracranial vasculature at the skull base is normal in appe arance. Calvarium: Unremarkable. Sinuses and mastoids: The paranasal sinuses are clear. The mastoid air cells are well pneumatized. Orbits: The bony orbits are grossly intact. IMPRESSION: There is no hemorrhage, mass effect, or evidence of acute territorial ischemia by CT vilma pedro. ACT 112: Negative or not required by law. Electronically signed by: Herbie Reese M.D. 06/02/2020 10:01 AM
[2020-06-02] MEDS: chlordiazePOXIDE HCl 25 MG CAP PO SCH ×2 (10:43→21:47)
--- NOTE | 2020-06-02 10:57 | Hospitalist Progress Note ---
Date of Service June 02, 2020 Assessment & Plan (1) Falls: (2) Chronic alcohol abuse: (3) Alcohol withdrawal: Patient has a history of chronic alcoholism with multiple admissions for abuse and withdrawal. Patient is currently having moderate to severe alcohol withdrawal with hallucinosis. Currently hemodynamically stable with normal blood pressure, normal heart rates. Continue alcohol withdrawal management protocol Patient quite tremulous and anxious Continue ativan per protocol Continue Librium twice daily for now Continue gabapentin Continue thiamine and folate Discussed patient extensively with the compotype operator Infectious work-up is negative so far CT head is negative for any acute abnormalities Confusion is due to metabolic encephalopathy Ammonia level is less than 10 Based on this, I think altered mental status at this point is more related to alcohol withdrawal hepatic encephalopathy Continue threat monitoring analyst Aspiration precautions Once medically stable, will get PT/OT evaluation (4) Elevated LFTs: (5) Cirrhosis: Patient has history of alcohol abuse, cirrhosis complicated by esophageal varices and ascites. Patient also has history of RYGB Also has chronic diarrhea. LFTs still elevated with bilirubin increasing to 8.9, AST/AlP mildly improving GI recommendations appreciated. We will continue to monitor Continue to monitor for signs of encephalopathy. Monitor BM to ensure 2-3 BM per day has been having more than 2-3 bowel movements per day C. difficile test is negative. Continue home colestipol and Creon Continue pantoprazole daily (6) Hypomagnesemia: (7) Hypophosphatemia: (8) Hypokalemia: Potassium was 3.1 today, magnesium is 2, phosphorus is 2.6. Calcium is 8.4. Continue to replete electrolytes aggressively and monitor Electrolyte abnormalities likely due to alcohol abuse Patient also had prolonged QT . Monitor with serial EKG. Avoid QT prolonging meds (9) Pancytopenia: Chronic pancytopenia due to alcohol abuse, cirrhosis and history of RYGB Monitor cell counts. No fever or sign of infection at this time (10) DVT prophylaxis: SCD for now Admission and Anticipated Discharge Date Admission Date: May 30, 2020 Subjective Patient seen and examined this morning. Patient is confused. Per RN has been hallucinating. Quite tremulous. Mumbling. Able to see her name only Review of Systems Review of Systems: Unobtainable due to cognitive status Physical Exam Constitutional: + well hydrated; no acute distress Confused Eyes: + conjunctival abnormality (Icteric) ENMT: external ear and nose normal, oropharynx normal Respiratory: normal respiratory effort, lungs clear to auscultation Cardiovascular: Rate/Rhythm: regular rate and regular rhythm S1-S2 Gastrointestinal (Abdomen): normal bowel sounds, soft, nontender, no hepatosplenomegaly Musculoskeletal: No pedal edema Neurologic: PERRL, EOMI, accommodation nl, no face palsy, no dysarthria Psychiatric: Orientation: alert and oriented to person Motor Behavior: + tremor Thought Process: + tangential thought process Confused Genitourinary: no CVA tenderness Results & Data Results & Data ([facility]) Vital Signs (Past 12 Hours) Vital Signs Temp Pulse Resp BP Pulse Ox 06/02/20 08:01 36.4 C L 69 18 127/82 98 06/02/20 03:36 36.4 C L 69 20 142/89 H 99 06/01/20 23:02 36.4 C L 99 H 20 154/99 H 98 Laboratory Results Laboratory Results - last 24 hr 06/01/20 06/01/20 06/02/20 15:07 20:32 06:59 WBC 1.28 L RBC 3.95 L Hgb 10.2 L Hct 34.2 L MCV 86.6 MCH 25.8 MCHC 29.8 L RDW Std Deviation 74.9 H RDW Coeff of Chetan 24.0 H Plt Count 48 L Platelet Estimate Decreased L PT INR Sodium Potassium 3.0 L D Chloride Carbon Dioxide Anion Gap BUN Creatinine Est Cr Clr Drug Dosing Est GFR ( Amer) Est GFR (Non-Af Amer) BUN/Creatinine Ratio Glucose POC Glucose 127 H Calcium Phosphorus 3.5 D Magnesium Total Bilirubin AST ALT Alkaline Phosphatase Ammonia Total Protein Albumin Globulin Albumin/Globulin Ratio 06/02/20 06/02/20 06/02/20 06:59 06:59 09:45 WBC RBC Hgb Hct MCV MCH MCHC RDW Std Deviation RDW Coeff of Chetan Plt Count Platelet Estimate PT 12.3 H INR 1.2 H Sodium 140 Potassium 3.1 L Chloride 108 H Carbon Dioxide 24 Anion Gap 8.0 BUN 3 L Creatinine 0.32 L Est Cr Clr Drug Dosing 169.5 Est GFR ( Amer) 145.2 Est GFR (Non-Af Amer) 125.3 BUN/Creatinine Ratio 9.4 L Glucose 93 POC Glucose Calcium 8.4 L Phosphorus 2.6 Magnesium 2.0 Total Bilirubin 8.9 H AST 188 H ALT 64 Alkaline Phosphatase 227 H Ammonia < 10.0 L Total Protein 6.8 Albumin 2.9 L Globulin 3.9 Albumin/Globulin Ratio 0.7 L (1) Cirrhosis Hepatic cirrhosis type: alcoholic cirrhosis
[2020-06-02] MEDS ORDERED: GABAPENTIN 600 MG TAB PO SCH (16:38)
[2020-06-02] MEDS: traZODone HCL 50 MG TAB PO SCH (21:46)
[2020-06-02] MEDS: MIRTAZAPINE TAB 15 MG TAB PO SCH (21:46)
[2020-06-02] MEDS: rOPINIRole HCL 0.25 MG TABLET PO SCH (21:47)
--- NOTE | 2020-06-03 07:23 | XRay Report ---
XR chest 1V portable CLINICAL HISTORY: Shortness of breath COMPARISON STUDY: 05/30/2020 FINDINGS: The cardiac and mediastinal contours remain stable. There are low lung volumes. There is no overt failure. There is no focal pulmonary consolidation. The heart is borderline enlarged. No large pleural effusions are visualized.[ IMPRESSION: Low lung volumes. No evidence of focal pulmonary consolidation ACT 112: Negative or not required by law. Electronically signed by: Yahir Valencia M.D. 06/03/2020 7:21 AM
[2020-06-03 07:29] LABS: Hematocrit (blood only) 30.6 % (37-47); Hemoglobin 9.3 g/dL (12.0-16.0); Mean Corpuscular Hemoglobin 26.4 pg (25-34); Mean Corpuscular Hgb Conc 30.4 g/dL (32-36); Mean Corpuscular Volume 86.9 fL (80-100); RDW Coefficient of Variation 24.8 % (11.5-14.5); RDW Standard Deviation 75.2 fL (36.4-46.3); Red Blood Count 3.52 M/uL (4.2-5.4); White Blood Count 1.13 K/uL (4.8-10.8)
[2020-06-03] MEDS: FOLIC ACID 1 MG in SYRINGE 9.8 ML IV SCH (07:31)
[2020-06-03] MEDS: THIAMINE HCL 100 MG in SYRINGE 9 ML IV SCH (07:31)
[2020-06-03 07:33] LABS: Mean Platelet Volume 9.4 fL (7.4-10.4); Platelet Count 52 K/uL (130-400)
[2020-06-03 07:43] LABS: INR 1.2 (0.9-1.1)
[2020-06-03 08:08] LABS: Albumin Globulin Ratio 0.8 (0.9-2); Albumin Level 2.6 gm/dl (3.4-5.0); BUN Creatinine Ratio 11.9 (10-20); Bilirubin,Total 7.4 mg/dl (0.2-1); Calcium 8.6 mg/dl (8.5-10.1); Creatinine Clr Calc Pharmacy 169.5 ml/min; Est GFR (African American) 145.2; Est GFR (Non-African American) 125.3; Globulin 3.3 gm/dl (2.5-4.0); Magnesium 1.7 mg/dl (1.8-2.4); Phosphorus 2.4 mg/dl (2.5-4.9); Total Protein 5.9 gm/dl (6.4-8.2)
[2020-06-03] MEDS: CITALOPRAM 20 MG TAB PO SCH (08:19)
[2020-06-03] MEDS: PANCREAZE (LIPASE 10,500U) CAP PO SCH ×3 (08:19→15:51)
[2020-06-03] MEDS: POTASSIUM CHLORIDE PWD 20 MEQ PACK PO SCH (08:19)
[2020-06-03] MEDS: chlordiazePOXIDE HCl 25 MG CAP PO SCH ×2 (08:19→20:40)
[2020-06-03] MEDS: COLESTIPOL HCL 1 GM TAB PO SCH ×2 (08:20→22:18)
[2020-06-03] MEDS: PANTOprazole 40 MG TAB PO SCH (08:20)
[2020-06-03] MEDS: carvediloL 3.125 MG TAB PO SCH ×2 (08:20→20:41)
[2020-06-03] MEDS ORDERED: POTASSIUM PHOS 3 MMOL/1 ML INFUSION IV STA (08:21)
[2020-06-03] MEDS: LIDOCAINE 5% 1 PATCH TD SCH (08:55)
[2020-06-03] MEDS: MAGNESIUM SULFATE / D5W 1 GM/100 ML BAG IV SCH ×2 (08:55→11:01)
[2020-06-03] MEDS ORDERED: POTASSIUM PHOSPHATE 40 MMOL in SODIUM CHLORIDE 0.9% 1000ML 1,000 ML IV ONE (09:00)
--- NOTE | 2020-06-03 10:47 | Hospitalist Progress Note ---
Date of Service June 03, 2020 Assessment & Plan (1) Falls: (2) Chronic alcohol abuse: (3) Alcohol withdrawal: Patient has a history of chronic alcoholism with multiple admissions for abuse and withdrawal. Moderate to severe alcohol withdrawal with hallucinosis. Currently hemodynamically stable with normal blood pressure, normal heart rates. Continue alcohol withdrawal management protocol Continue ativan per protocol Continue Librium twice daily for now and taper as patient improves Continue gabapentin Continue thiamine and folate Infectious work-up is negative so far CT head is negative for any acute abnormalities Confusion is due to metabolic encephalopathy Ammonia level is less than 10 Based on this, I think altered mental status at this point is more related to alcohol withdrawal than hepatic encephalopathy Continue collar closer lockstitch Aspiration precautions Once medically stable, will get PT/OT evaluation (4) Elevated LFTs: (5) Cirrhosis: Patient has history of alcohol abuse, cirrhosis complicated by esophageal varices and ascites. Patient also has history of RYGB Also has chronic diarrhea. LFTs still elevated with bilirubin>> 8.9>7.9, AST/AlP improving GI recommendations appreciated. We will continue to monitor Continue to monitor for signs of encephalopathy. Monitor BM to ensure 2-3 BM per day has been having more than 2-3 bowel movements per day C. difficile test is negative. Continue home colestipol and Creon Continue pantoprazole daily (6) Hypomagnesemia: (7) Hypophosphatemia: (8) Hypokalemia: Potassium was 3 today, magnesium is 1.7, phosphorus is 2.4. Calcium is 8.6 Continue to replete electrolytes aggressively and monitor Electrolyte abnormalities likely due to alcohol abuse Patient also had prolonged QT . Monitor with serial EKG. Avoid QT prolonging meds (9) Pancytopenia: Chronic pancytopenia due to alcohol abuse, cirrhosis and history of RYGB Monitor cell counts. No fever or sign of infection at this time (10) DVT prophylaxis: SCD for now Admission and Anticipated Discharge Date Admission Date: May 30, 2020 Subjective Patient seen and examined this morning. Patient is less confused than yesterday. Tremors much improved compared to yesterday. Complaints of generalized body aches No nausea, no vomiting, No chest pain, palpitations, shortness of breath, cough No abdominal pain No dysuria, frequency, urgency Physical Exam Constitutional: + well hydrated; no acute distress Eyes: + conjunctival abnormality (Icteric) ENMT: external ear and nose normal, oropharynx normal Respiratory: normal respiratory effort, lungs clear to auscultation Cardiovascular: Rate/Rhythm: regular rate and regular rhythm S1-S2 Gastrointestinal (Abdomen): normal bowel sounds, soft, nontender, no hepatosplenomegaly Musculoskeletal: No pedal edema Neurologic: PERRL, EOMI, accommodation nl, no face palsy, no dysarthria Psychiatric: Orientation: alert, oriented to person and oriented to place Genitourinary: no CVA tenderness Results & Data Results & Data ([facility]) Vital Signs (Past 12 Hours) Vital Signs Temp Pulse Pulse Resp BP Pulse Ox 06/03/20 08:16 36.9 C 72 18 138/69 96 06/03/20 08:00 79 06/03/20 04:00 36.6 C 61 16 134/79 95 06/03/20 00:03 36.6 C 64 18 125/82 97 Laboratory Results Abnormal lab results 06/02/20 06/03/20 06/03/20 Range/Units 18:47 07:18 07:18 WBC 1.13 L (4.8-10.8) K/uL RBC 3.52 L (4.2-5.4) M/uL Hgb 9.3 L (12.0-16.0) g/dL Hct 30.6 L (37-47) % MCHC 30.4 L (32-36) g/dL RDW Std Deviation 75.2 H (36.4-46.3) fL RDW Coeff of Chetan 24.8 H (11.5-14.5) % Plt Count 52 L (130-400) K/uL INR 1.2 H (0.9-1.1) Potassium 3.2 L (3.5-5.1) mmol/L Chloride (98-107) mmol/L BUN (7-18) mg/dl Creatinine (0.6-1.2) mg/dl Glucose (70-99) mg/dl Phosphorus (2.5-4.9) mg/dl Magnesium (1.8-2.4) mg/dl Total Bilirubin (0.2-1) mg/dl AST (15-37) U/L Alkaline Phosphatase (45-117) U/L Total Protein (6.4-8.2) gm/dl Albumin (3.4-5.0) gm/dl Albumin/Globulin Ratio (0.9-2) // Range/Units 07:18 WBC (4.8-10.8) K/uL RBC (4.2-5.4) M/uL Hgb (12.0-16.0) g/dL Hct (37-47) % MCHC (32-36) g/dL RDW Std Deviation (36.4-46.3) fL RDW Coeff of Chetan (11.5-14.5) % Plt Count (130-400) K/uL INR (0.9-1.1) Potassium 3.0 L (3.5-5.1) mmol/L Chloride 109 H (98-107) mmol/L BUN 4 L (7-18) mg/dl Creatinine 0.32 L (0.6-1.2) mg/dl Glucose 101 H (70-99) mg/dl Phosphorus 2.4 L (2.5-4.9) mg/dl Magnesium 1.7 L (1.8-2.4) mg/dl Total Bilirubin 7.4 H (0.2-1) mg/dl AST 126 H (15-37) U/L Alkaline Phosphatase 192 H (45-117) U/L Total Protein 5.9 L (6.4-8.2) gm/dl Albumin 2.6 L (3.4-5.0) gm/dl Albumin/Globulin Ratio 0.8 L (0.9-2) (1) Cirrhosis Hepatic cirrhosis type: alcoholic cirrhosis
[2020-06-03] MEDS: LOPERAMIDE HCL 2 MG CAP PO PRN (15:50)
[2020-06-03] MEDS: MIRTAZAPINE TAB 15 MG TAB PO SCH (20:40)
[2020-06-03] MEDS: rOPINIRole HCL 0.25 MG TABLET PO SCH (20:41)
[2020-06-03] MEDS: traZODone HCL 50 MG TAB PO SCH (20:42)
[2020-06-04 07:32] LABS: Mean Corpuscular Hgb Conc 29.7 g/dL (32-36)
[2020-06-04 07:44] LABS: Hematocrit (blood only) 31.6 % (37-47); Hemoglobin 9.4 g/dL (12.0-16.0); Mean Corpuscular Hemoglobin 26.6 pg (25-34); Mean Corpuscular Volume 89.3 fL (80-100); RDW Coefficient of Variation 25.7 % (11.5-14.5); Red Blood Count 3.54 M/uL (4.2-5.4); White Blood Count 1.02 K/uL (4.8-10.8)
[2020-06-04 07:50] LABS: INR 1.2 (0.9-1.1); Prothrombin Time 11.9 Seconds (9.0-12.0)
[2020-06-04 07:59] LABS: Platelet Count 59 K/uL (130-400)
[2020-06-04 08:00] LABS: Platelet Estimate Decreased (Normal)
[2020-06-04 08:08] LABS: Alanine Aminotransferase 50 U/L (12-78); Albumin Globulin Ratio 0.8 (0.9-2); Albumin Level 2.7 gm/dl (3.4-5.0); Alkaline Phosphatase 179 U/L (45-117); Aspartate Aminotransferase 98 U/L (15-37); BUN Creatinine Ratio 17.4 (10-20); Bilirubin,Total 7.2 mg/dl (0.2-1); Blood Urea Nitrogen 5 mg/dl (7-18); Calcium 8.4 mg/dl (8.5-10.1); Carbon Dioxide 24 mmol/L (21-32); Chloride 112 mmol/L (98-107); Creatinine Clr Calc Pharmacy 193.7 ml/min; Est GFR (African American) > 150.0; Est GFR (Non-African American) 130.9; Globulin 3.3 gm/dl (2.5-4.0); Glucose 89 mg/dl (70-99); Magnesium 1.9 mg/dl (1.8-2.4); Sodium 141 mmol/L (136-145)
[2020-06-04] MEDS: PANTOprazole 40 MG TAB PO SCH (08:14)
[2020-06-04] MEDS: CITALOPRAM 20 MG TAB PO SCH (08:14)
[2020-06-04] MEDS: PANCREAZE (LIPASE 10,500U) CAP PO SCH ×3 (08:14→17:33)
[2020-06-04] MEDS: carvediloL 3.125 MG TAB PO SCH ×2 (08:15→20:22)
[2020-06-04] MEDS: POTASSIUM CHLORIDE PWD 20 MEQ PACK PO SCH (08:15)
[2020-06-04] MEDS: FOLIC ACID 1 MG in SYRINGE 9.8 ML IV SCH (08:16)
[2020-06-04] MEDS: LIDOCAINE 5% 1 PATCH TD SCH (08:16)
[2020-06-04] MEDS: THIAMINE HCL 100 MG in SYRINGE 9 ML IV SCH (08:16)
[2020-06-04] MEDS: chlordiazePOXIDE HCl 25 MG CAP PO SCH (08:17)
[2020-06-04 08:19] LABS: Potassium 3.6 mmol/L (3.5-5.1)
[2020-06-04 08:20] LABS: Phosphorus 3.5 mg/dl (2.5-4.9)
[2020-06-04] MEDS: COLESTIPOL HCL 1 GM TAB PO SCH ×2 (09:28→21:45)
--- NOTE | 2020-06-04 16:38 | Hospitalist Progress Note ---
Date of Service June 04, 2020 Assessment & Plan (1) Falls: (2) Chronic alcohol abuse: (3) Alcohol withdrawal: Patient has a history of chronic alcoholism with multiple admissions for abuse and withdrawal. CT head is negative for any acute abnormalities Continue alcohol withdrawal management protocol Continue ativan per protocol and gabapentin Will taper Librium to 10mg twice daily Continue thiamine and folate Counseling on alcohol cessation Continue monitor closely for DT Confusion CT head is negative for any acute abnormalities Confusion is due to metabolic encephalopathy due to alcohol intoxication on admission Ammonia level is less than 10 Clinically improves (4) Elevated LFTs: (5) Cirrhosis: Patient has history of alcohol abuse, cirrhosis complicated by esophageal varices and ascites. Patient also has history of RYGB Also has chronic diarrhea. Liver enzymes trending down with AST 98, ALT 50 and ALk phos 179 GI on board Continue home colestipol and Creon and pantoprazole daily (6) Hypomagnesemia: (7) Hypophosphatemia: (8) Hypokalemia: Mostly related to alcohol abuse and diarrhea Potassium was 3.6 magnesium is 1.9, phosphorus is 3.5 today Continue monitor electrolytes (9) Pancytopenia: Chronic pancytopenia due to alcohol abuse, cirrhosis and history of RYGB Platelet 59 , WBC 1.02 today Monitor cell counts. No fever or sign of infection at this time Prolong QTC Continue avoid meds that can cause QTC prolongation Will repeat EKG in am (10) DVT prophylaxis: SCD for now Admission and Anticipated Discharge Date Admission Date: May 30, 2020 Subjective Pt was seen and examined for follow up of weakness and diarrhea Lying in bed with no acute distress Pt said that she continues to have multiple episodes of diarrhea She said that the reason that she drinks alcohol is to help her with her pain Denies any chest pain, palpitation, dizziness, SOB and fever Review of Systems Review of Systems: All systems reviewed & are unremarkable except as noted in Subjective Physical Exam Physical Exam: General- No acute distress Head- atraumatic Eyes- +icteric ENT- oropharynx clear Neck- supple, no JVD Lungs- clear to auscultation Heart- regular rhythm; no murmur Abdomen- normal bowel sounds, soft, nontender Extremities- no calf tenderness Neuro- alert, oriented x 3; PERRL, EOMI; no facial palsy; no dysarthria, +mild tremor Skin- warm & dry Results & Data Results & Data ([facility]) Vital Signs (Past 12 Hours) Vital Signs Temp Pulse Pulse Resp BP Pulse Ox 06/04/20 15:58 78 06/04/20 15:11 37.0 C 96 H 20 131/84 95 06/04/20 11:48 36.7 C 92 H 18 150/94 H 95 06/04/20 08:33 81 06/04/20 08:02 36.9 C 70 16 153/89 H 95 06/04/20 05:06 36.8 C 81 18 130/84 91 (1) Cirrhosis Hepatic cirrhosis type: alcoholic cirrhosis
[2020-06-04] MEDS: GABAPENTIN 400 MG CAP PO SCH (20:22)
[2020-06-04] MEDS: MIRTAZAPINE TAB 15 MG TAB PO SCH (20:22)
[2020-06-04] MEDS: rOPINIRole HCL 0.25 MG TABLET PO SCH (20:22)
[2020-06-04] MEDS: traZODone HCL 50 MG TAB PO SCH (20:25)
[2020-06-05] MEDS: LOPERAMIDE HCL 2 MG CAP PO PRN ×2 (03:58→17:19)
[2020-06-05] MEDS: PANCREAZE (LIPASE 10,500U) CAP PO SCH ×3 (08:00→17:16)
[2020-06-05] MEDS: POTASSIUM CHLORIDE PWD 20 MEQ PACK PO SCH (08:00)
[2020-06-05] MEDS: CITALOPRAM 20 MG TAB PO SCH (08:00)
[2020-06-05] MEDS: FOLIC ACID 1 MG in SYRINGE 9.8 ML IV SCH (08:00)
[2020-06-05] MEDS: THIAMINE HCL 100 MG in SYRINGE 9 ML IV SCH (08:00)
[2020-06-05] MEDS: PANTOprazole 40 MG TAB PO SCH (08:01)
[2020-06-05] MEDS: carvediloL 3.125 MG TAB PO SCH ×2 (08:01→20:44)
[2020-06-05] MEDS: GABAPENTIN 400 MG CAP PO SCH ×3 (08:01→20:44)
[2020-06-05] MEDS: LIDOCAINE 5% 1 PATCH TD SCH (08:02)
[2020-06-05] MEDS: COLESTIPOL HCL 1 GM TAB PO SCH ×2 (09:01→21:34)
[2020-06-05 11:56] LABS: BUN Creatinine Ratio 21.2 (10-20); Blood Urea Nitrogen 6 mg/dl (7-18); Calcium 7.6 mg/dl (8.5-10.1); Carbon Dioxide 22 mmol/L (21-32); Chloride 116 mmol/L (98-107); Creatinine Clr Calc Pharmacy 200.9 ml/min; Est GFR (African American) > 150.0; Est GFR (Non-African American) 132.5; Glucose 89 mg/dl (70-99); Magnesium 1.6 mg/dl (1.8-2.4); Potassium 3.6 mmol/L (3.5-5.1); Sodium 144 mmol/L (136-145)
[2020-06-05 12:13] LABS: Phosphorus 2.7 mg/dl (2.5-4.9)
--- NOTE | 2020-06-05 18:51 | Hospitalist Progress Note ---
Date of Service June 05, 2020 Assessment & Plan (1) Falls: (2) Chronic alcohol abuse: (3) Alcohol withdrawal: Patient has a history of chronic alcoholism with multiple admissions for abuse and withdrawal. CT head is negative for any acute abnormalities Continue alcohol withdrawal management protocol Continue ativan per protocol and gabapentin Will taper Librium to 10mg twice daily Continue thiamine and folate Counseling on alcohol cessation Continue monitor closely for DT Confusion CT head is negative for any acute abnormalities Confusion is due to metabolic encephalopathy due to alcohol intoxication on admission Ammonia level is less than 10 Clinically improves (4) Elevated LFTs: (5) Cirrhosis: Patient has history of alcohol abuse, cirrhosis complicated by esophageal varices and ascites. Patient also has history of RYGB Also has chronic diarrhea. Liver enzymes trending down with AST 98, ALT 50 and ALk phos 179 GI on board Continue home colestipol and Creon and pantoprazole daily (6) Hypomagnesemia: (7) Hypophosphatemia: (8) Hypokalemia: Mostly related to alcohol abuse and diarrhea Potassium was 3.6 magnesium is 1.9, phosphorus is 3.5 today Will replace magnesium Corrected albumin 8.6 Continue monitor electrolytes (9) Pancytopenia: Chronic pancytopenia due to alcohol abuse, cirrhosis and history of RYGB Platelet 59 , WBC 1.02 Monitor cell counts. No fever or sign of infection at this time Prolong QTC Continue avoid meds that can cause QTC prolongation Will repeat EKG in am (10) DVT prophylaxis: SCD for now Admission and Anticipated Discharge Date Admission Date: May 30, 2020 Subjective Pt was seen and examined for follow up of weakness and diarrhea Lying in bed with no acute distress Pt said that she continues to have multiple episodes of diarrhea I encouraged her to walk with therapy and she did Denies any chest pain, palpitation, dizziness, SOB and fever Review of Systems Review of Systems: All systems reviewed & are unremarkable except as noted in Subjective Physical Exam Physical Exam: General- No acute distress Head- atraumatic Eyes- +icteric ENT- oropharynx clear Neck- supple, no JVD Lungs- clear to auscultation Heart- regular rhythm; no murmur Abdomen- normal bowel sounds, soft, nontender Extremities- no calf tenderness Neuro- alert, oriented x 3; PERRL, EOMI; no facial palsy; no dysarthria, +mild tremor Skin- warm & dry Results & Data Results & Data ([place]) Vital Signs (Past 12 Hours) Vital Signs Temp Pulse Pulse Resp BP BP Pulse Ox 06/05/20 18:26 68 06/05/20 15:48 36.8 C 75 18 145/90 H 95 06/05/20 11:20 37.3 C 68 19 116/75 95 06/05/20 07:43 36.6 C 77 16 130/87 97 (1) Cirrhosis Hepatic cirrhosis type: alcoholic cirrhosis
[2020-06-05] MEDS ORDERED: MAGNESIUM SULFATE / D5W 1 GM/100 ML BAG IV ONE (19:15)
[2020-06-05] MEDS: rOPINIRole HCL 0.25 MG TABLET PO SCH (20:44)
[2020-06-05] MEDS: MIRTAZAPINE TAB 15 MG TAB PO SCH (20:44)
[2020-06-05] MEDS: traZODone HCL 50 MG TAB PO SCH (21:34)
[2020-06-06 08:25] LABS: Mean Corpuscular Hgb Conc 30.1 g/dL (32-36)
[2020-06-06] MEDS: PANCREAZE (LIPASE 10,500U) CAP PO SCH ×3 (08:42→17:53)
[2020-06-06] MEDS: GABAPENTIN 400 MG CAP PO SCH ×3 (08:47→20:52)
[2020-06-06] MEDS: CITALOPRAM 20 MG TAB PO SCH (08:47)
[2020-06-06] MEDS: POTASSIUM CHLORIDE PWD 20 MEQ PACK PO SCH (08:48)
[2020-06-06] MEDS: CHOLECALCIFEROL 1,000 UNITS 25 MCG TAB PO SCH (08:48)
[2020-06-06] MEDS: carvediloL 3.125 MG TAB PO SCH ×2 (08:48→20:53)
[2020-06-06] MEDS: FOLIC ACID 1 MG in SYRINGE 9.8 ML IV SCH (08:49)
[2020-06-06] MEDS: LIDOCAINE 5% 1 PATCH TD SCH (08:49)
[2020-06-06] MEDS: MULTIVITAMIN CHEWABLE TAB PO SCH (08:49)
[2020-06-06] MEDS: THIAMINE HCL 100 MG in SYRINGE 9 ML IV SCH (08:49)
[2020-06-06] MEDS: PANTOprazole 40 MG TAB PO SCH (08:49)
[2020-06-06 09:01] LABS: Albumin Globulin Ratio 0.7 (0.9-2); Albumin Level 2.6 gm/dl (3.4-5.0); Bilirubin,Total 5.2 mg/dl (0.2-1); Creatinine Clr Calc Pharmacy 150.7 ml/min; Est GFR (African American) 139.7; Est GFR (Non-African American) 120.5; Globulin 3.5 gm/dl (2.5-4.0); Magnesium 1.8 mg/dl (1.8-2.4); Potassium 3.5 mmol/L (3.5-5.1); Total Protein 6.1 gm/dl (6.4-8.2)
[2020-06-06 09:11] LABS: Hematocrit (blood only) 29.9 % (37-47); Mean Corpuscular Hemoglobin 27.4 pg (25-34); Mean Corpuscular Volume 90.9 fL (80-100); RDW Coefficient of Variation 25.9 % (11.5-14.5); RDW Standard Deviation 86.6 fL (36.4-46.3); Red Blood Count 3.29 M/uL (4.2-5.4); White Blood Count 1.34 K/uL (4.8-10.8)
[2020-06-06 09:20] LABS: Platelet Count 88 K/uL (130-400); Platelet Estimate Decreased (Normal)
[2020-06-06] MEDS: COLESTIPOL HCL 1 GM TAB PO SCH ×3 (10:54→22:58)
[2020-06-06] MEDS: LOPERAMIDE HCL 2 MG CAP PO PRN (13:28)
--- NOTE | 2020-06-06 19:14 | Hospitalist Progress Note ---
Date of Service June 06, 2020 Assessment & Plan (1) Falls: (2) Chronic alcohol abuse: (3) Alcohol withdrawal: Patient has a history of chronic alcoholism with multiple admissions for abuse and withdrawal. CT head is negative for any acute abnormalities Continue alcohol withdrawal management protocol Continue ativan per protocol and gabapentin Will taper Librium to 10mg twice daily Continue thiamine and folate Counseling on alcohol cessation Continue monitor closely for DT Confusion CT head is negative for any acute abnormalities Confusion is due to metabolic encephalopathy due to alcohol intoxication on admission Ammonia level is less than 10 resolved (4) Elevated LFTs: (5) Cirrhosis: Patient has history of alcohol abuse, cirrhosis complicated by esophageal varices and ascites. Patient also has history of RYGB Also has chronic diarrhea. Liver enzymes trending down with AST 98, ALT 50 and ALk phos 179 GI on board Continue home colestipol and Creon and pantoprazole daily (6) Hypomagnesemia: (7) Hypophosphatemia: (8) Hypokalemia: Mostly related to alcohol abuse and diarrhea Potassium was 3.6 magnesium is 1.9, phosphorus is 3.5 today Magnesium 1.8 today Corrected calcium 8.6 Continue monitor electrolytes (9) Pancytopenia: Chronic pancytopenia due to alcohol abuse, cirrhosis and history of RYGB Platelet 88 , WBC 1.3 Monitor cell counts. No fever or sign of infection at this time Prolong QTC Continue avoid meds that can cause QTC prolongation Will repeat EKG in am (10) DVT prophylaxis: SCD for now Admission and Anticipated Discharge Date Admission Date: May 30, 2020 Subjective Pt was seen and examined for follow up of weakness and diarrhea Lying in bed with no acute distress Pt said that she has about 4 episodes of diarrhea so far today She said that she feels nauseated Denies any chest pain, palpitation, dizziness, SOB and fever Physical Exam Physical Exam: General- No acute distress Head- atraumatic Eyes- +icteric ENT- oropharynx clear Neck- supple, no JVD Lungs- clear to auscultation Heart- regular rhythm; no murmur Abdomen- normal bowel sounds, soft, nontender Extremities- no calf tenderness Neuro- alert, oriented x 3; PERRL, EOMI; no facial palsy; no dysarthria, +mild tremor Skin- warm & dry Results & Data Results & Data ([facility]) Vital Signs (Past 12 Hours) Vital Signs Temp Pulse Pulse Resp BP Pulse Ox Pulse Ox 06/06/20 15:33 37.2 C 75 16 108/71 95 06/06/20 15:00 73 06/06/20 11:59 37.2 C 71 16 126/81 95 06/06/20 11:00 96 06/06/20 07:52 36.8 C 100 H 16 111/73 95 06/06/20 07:37 69 (1) Cirrhosis Hepatic cirrhosis type: alcoholic cirrhosis
[2020-06-06] MEDS: LOPERAMIDE HCL 2 MG CAP PO SCH (20:52)
[2020-06-06] MEDS: MIRTAZAPINE TAB 15 MG TAB PO SCH (20:53)
[2020-06-06] MEDS: traZODone HCL 50 MG TAB PO SCH (20:54)
[2020-06-06] MEDS: rOPINIRole HCL 0.25 MG TABLET PO SCH (20:54)
[2020-06-07] MEDS: LOPERAMIDE HCL 2 MG CAP PO SCH ×5 (01:45→20:53)
[2020-06-07] MEDS: THIAMINE HCL 100 MG in SYRINGE 9 ML IV SCH (08:06)
[2020-06-07] MEDS: CHOLECALCIFEROL 1,000 UNITS 25 MCG TAB PO SCH (08:07)
[2020-06-07] MEDS: POTASSIUM CHLORIDE PWD 20 MEQ PACK PO SCH (08:07)
[2020-06-07] MEDS: PANTOprazole 40 MG TAB PO SCH (08:07)
[2020-06-07] MEDS: FOLIC ACID 1 MG in SYRINGE 9.8 ML IV SCH (08:07)
[2020-06-07] MEDS: PANCREAZE (LIPASE 10,500U) CAP PO SCH ×3 (08:08→17:55)
[2020-06-07] MEDS: MULTIVITAMIN CHEWABLE TAB PO SCH (08:08)
[2020-06-07] MEDS: GABAPENTIN 400 MG CAP PO SCH ×3 (08:08→20:54)
[2020-06-07] MEDS: CITALOPRAM 20 MG TAB PO SCH (08:08)
[2020-06-07] MEDS: carvediloL 3.125 MG TAB PO SCH ×2 (08:09→20:53)
[2020-06-07] MEDS: LIDOCAINE 5% 1 PATCH TD SCH ×2 (10:00→11:03)
[2020-06-07] MEDS: COLESTIPOL HCL 1 GM TAB PO SCH ×2 (11:03→22:15)
[2020-06-07] MEDS: DICYCLOMINE HCL 10 MG CAP PO PRN (15:45)
[2020-06-07] MEDS ORDERED: PROMETHAZINE HCL 12.5 MG in SODIUM CHLORIDE 0.9% 50 ML IV PRN (18:05)
--- NOTE | 2020-06-07 18:08 | Hospitalist Progress Note ---
Date of Service June 07, 2020 Assessment & Plan (1) Falls: (2) Chronic alcohol abuse: (3) Alcohol withdrawal: Patient has a history of chronic alcoholism with multiple admissions for abuse and withdrawal. CT head is negative for any acute abnormalities Continue alcohol withdrawal management protocol Continue ativan per protocol and gabapentin Will taper Librium to 10mg twice daily Continue thiamine and folate Counseling on alcohol cessation Continue monitor closely for DT Confusion CT head is negative for any acute abnormalities Confusion is due to metabolic encephalopathy due to alcohol intoxication on admission Ammonia level is less than 10 resolved Migraines Pt said that she used to take opioid in the past Will add riboflavin and magnesium (4) Elevated LFTs: (5) Cirrhosis: Patient has history of alcohol abuse, cirrhosis complicated by esophageal varices and ascites. Patient also has history of RYGB Also has chronic diarrhea. Liver enzymes trending down with AST 98, ALT 50 and ALk phos 179 GI on board Continue home colestipol and Creon and pantoprazole daily (6) Hypomagnesemia: (7) Hypophosphatemia: (8) Hypokalemia: Mostly related to alcohol abuse and diarrhea Potassium was 3.6 magnesium is 1.9, phosphorus is 3.5 today Magnesium 1.8 today Corrected calcium 8.6 Continue monitor electrolytes Diarrhea Continue Imodium daily Diarrhea improves (9) Pancytopenia: Chronic pancytopenia due to alcohol abuse, cirrhosis and history of RYGB Platelet 88 , WBC 1.3 Monitor cell counts. No fever or sign of infection at this time Prolong QTC Continue avoid meds that can cause QTC prolongation QTC improves with repeat EKG this morning QTC 444 today (10) DVT prophylaxis: SCD for now Admission and Anticipated Discharge Date Admission Date: May 30, 2020 Subjective Pt was seen and examined for follow up of weakness and diarrhea Lying in bed with no acute distress watching TV Pt said that her diarrhea improves because she only had 1 episode this morning compare to 4 episodes before 12PM She said that she vomited early after eating lunch She said that she is having headache Denies any chest pain, palpitation, dizziness, SOB and fever Review of Systems Review of Systems: All systems reviewed & are unremarkable except as noted in Subjective Physical Exam Physical Exam: General- No acute distress Head- atraumatic Eyes- +icteric ENT- oropharynx clear Neck- supple, no JVD Lungs- clear to auscultation Heart- regular rhythm; no murmur Abdomen- normal bowel sounds, soft, nontender Extremities- no calf tenderness Neuro- alert, oriented x 3; PERRL, EOMI; no facial palsy; no dysarthria, +mild tremor Skin- warm & dry Results & Data Results & Data ([facility]) Vital Signs (Past 12 Hours) Vital Signs Temp Pulse Pulse Resp BP BP Pulse Ox 06/07/20 15:09 37.3 C 82 18 95/56 L 97 06/07/20 14:59 84 06/07/20 11:42 37.1 C 75 18 131/82 96 06/07/20 07:46 37.1 C 66 18 96/60 L 97 06/07/20 07:44 76 (1) Cirrhosis Hepatic cirrhosis type: alcoholic cirrhosis
[2020-06-07] MEDS: BUTALBITAL/ACETAMIN/CAFFEINE TAB PO PRN (20:21)
[2020-06-07] MEDS: hydrOXYzine HCl 25 MG TAB PO PRN (20:53)
[2020-06-07] MEDS: MIRTAZAPINE TAB 15 MG TAB PO SCH (20:53)
[2020-06-07] MEDS: traZODone HCL 50 MG TAB PO SCH (20:54)
[2020-06-07] MEDS: rOPINIRole HCL 0.25 MG TABLET PO SCH (20:54)
[2020-06-08] MEDS: LOPERAMIDE HCL 2 MG CAP PO SCH ×4 (01:37→21:24)
[2020-06-08 06:27] LABS: Hematocrit (blood only) 27.4 % (37-47); Hemoglobin 8.2 g/dL (12.0-16.0); Mean Corpuscular Hemoglobin 27.5 pg (25-34); Mean Corpuscular Hgb Conc 29.9 g/dL (32-36); Mean Corpuscular Volume 91.9 fL (80-100); Mean Platelet Volume 10.7 fL (7.4-10.4); Platelet Count 118 K/uL (130-400); RDW Coefficient of Variation 24.4 % (11.5-14.5); RDW Standard Deviation 82.5 fL (36.4-46.3); Red Blood Count 2.98 M/uL (4.2-5.4); White Blood Count 1.41 K/uL (4.8-10.8)
[2020-06-08 06:55] LABS: Albumin Level 2.5 gm/dl (3.4-5.0); BUN Creatinine Ratio 28.7 (10-20); Calcium 8.8 mg/dl (8.5-10.1); Creatinine Clr Calc Pharmacy 159.5 ml/min; Est GFR (African American) 142.4; Est GFR (Non-African American) 122.8; Potassium 3.1 mmol/L (3.5-5.1)
[2020-06-08 07:11] LABS: Albumin Globulin Ratio 0.7 (0.9-2); Bilirubin,Total 3.9 mg/dl (0.2-1); Globulin 3.5 gm/dl (2.5-4.0)
--- NOTE | 2020-06-08 07:40 | Electrocardiogram Report ---
Test Reason : Blood Pressure : / mmHG Vent. Rate : 063 BPM Atrial Rate : 063 BPM P-R Int : 190 ms QRS Dur : 094 ms QT Int : 434 ms P-R-T Axes : 036 -05 054 degrees QTc Int : 444 ms Normal sinus rhythm Low voltage QRS Cannot rule out Anterior infarct , age undetermined Abnormal ECG When compared with ECG of 01-JUN-2020 05:41, SD interval has decreased Confirmed by Roderick De Leon ([id number]) on 06/08/2020 7:40:41 AM Referred By: REFERRED SELF Confirmed By:Roderick De Leon
[2020-06-08] MEDS: MULTIVITAMIN CHEWABLE TAB PO SCH (08:01)
[2020-06-08] MEDS: GABAPENTIN 400 MG CAP PO SCH ×3 (08:02→21:25)
[2020-06-08] MEDS: CITALOPRAM 20 MG TAB PO SCH (08:02)
[2020-06-08] MEDS: POTASSIUM CHLORIDE PWD 20 MEQ PACK PO SCH (08:02)
[2020-06-08] MEDS: PANTOprazole 40 MG TAB PO SCH (08:02)
[2020-06-08] MEDS: CHOLECALCIFEROL 1,000 UNITS 25 MCG TAB PO SCH (08:02)
[2020-06-08] MEDS: THIAMINE HCL 100 MG in SYRINGE 9 ML IV SCH (08:03)
[2020-06-08] MEDS: FOLIC ACID 1 MG in SYRINGE 9.8 ML IV SCH (08:03)
[2020-06-08] MEDS: PANCREAZE (LIPASE 10,500U) CAP PO SCH ×3 (08:03→18:02)
[2020-06-08] MEDS: LIDOCAINE 5% 1 PATCH TD SCH (08:04)
[2020-06-08] MEDS: carvediloL 3.125 MG TAB PO SCH ×2 (08:13→21:24)
[2020-06-08] MEDS: BUTALBITAL/ACETAMIN/CAFFEINE TAB PO PRN (08:29)
[2020-06-08] MEDS ORDERED: POTASSIUM CHLORIDE CRTAB 20 MEQ TABCR PO ONE (09:45)
[2020-06-08] MEDS: COLESTIPOL HCL 1 GM TAB PO SCH ×2 (10:23→22:39)
[2020-06-08] MEDS ORDERED: BUTALBITAL/ACETAMIN/CAFFEINE TAB PO STA (15:48)
--- NOTE | 2020-06-08 15:54 | Hospitalist Progress Note ---
Date of Service June 08, 2020 Assessment & Plan (1) Falls: (2) Chronic alcohol abuse: (3) Alcohol withdrawal: Patient has a history of chronic alcoholism with multiple admissions for abuse and withdrawal. CT head is negative for any acute abnormalities Continue alcohol withdrawal management protocol Continue ativan per protocol and gabapentin Librium to 10mg discontinued Continue thiamine and folate Counseling on alcohol cessation Continue monitor closely for DT Confusion CT head is negative for any acute abnormalities Confusion is due to metabolic encephalopathy due to alcohol intoxication on admission Ammonia level is less than 10 resolved Migraines Pt said that she used to take opioid in the past Fiorocetx1 given and helped with the headache Consider to add riboflavin and magnesium (4) Elevated LFTs: (5) Cirrhosis: Patient has history of alcohol abuse, cirrhosis complicated by esophageal varices and ascites. Patient also has history of RYGB Also has chronic diarrhea. Liver enzymes trending down with AST 98, ALT 50 and ALk phos 179 GI on board Continue home colestipol and Creon and pantoprazole daily (6) Hypomagnesemia: (7) Hypophosphatemia: (8) Hypokalemia: Mostly related to alcohol abuse and diarrhea Potassium 3.1 today Potassium replaced Continue monitor electrolytes Diarrhea Continue Imodium daily Diarrhea improves (9) Pancytopenia: Chronic pancytopenia due to alcohol abuse, cirrhosis and history of RYGB Platelet 88 , WBC 1.3 Monitor cell counts. No fever or sign of infection at this time Prolong QTC Continue avoid meds that can cause QTC prolongation QTC improves with repeat EKG this morning QTC 444 today (10) DVT prophylaxis: SCD for now Admission and Anticipated Discharge Date Admission Date: May 30, 2020 Subjective Pt was seen and examined for follow up of weakness and diarrhea Lying in bed with no acute distress watching TV Pt said that her diarrhea is much better She said that she is having headache that triggers her to vomit She said that her energy is getting better Denies any chest pain, palpitation, dizziness, SOB and fever Review of Systems Review of Systems: All systems reviewed & are unremarkable except as noted in Subjective Physical Exam Physical Exam: General- No acute distress Head- atraumatic Eyes- +icteric ENT- oropharynx clear Neck- supple, no JVD Lungs- clear to auscultation Heart- regular rhythm; no murmur Abdomen- normal bowel sounds, soft, nontender Extremities- no calf tenderness Neuro- alert, oriented x 3; PERRL, EOMI; no facial palsy; no dysarthria, +mild tremor Skin- warm & dry Results & Data Results & Data ([facility]) Vital Signs (Past 12 Hours) Vital Signs Temp Pulse Pulse Resp BP BP Pulse Ox 06/08/20 11:44 37.7 C H 75 18 105/68 96 06/08/20 07:23 36.3 C L 70 18 100/67 97 06/08/20 07:16 66 06/08/20 04:00 36.9 C 63 18 92/60 L 93 (1) Cirrhosis Hepatic cirrhosis type: alcoholic cirrhosis
[2020-06-08] MEDS ORDERED: CALCIUM CARBONATE 500 MG CHEWABLE TAB PO PRN (18:29)
[2020-06-08] MEDS: rOPINIRole HCL 0.25 MG TABLET PO SCH (21:25)
[2020-06-08] MEDS: traZODone HCL 50 MG TAB PO SCH (21:26)
[2020-06-08] MEDS: MIRTAZAPINE TAB 15 MG TAB PO SCH (21:27)
[2020-06-09] MEDS: LOPERAMIDE HCL 2 MG CAP PO SCH ×4 (01:57→21:09)
[2020-06-09 06:08] LABS: Hemoglobin 9.2 g/dL (12.0-16.0); Mean Corpuscular Hemoglobin 27.5 pg (25-34); Mean Corpuscular Hgb Conc 29.7 g/dL (32-36); Mean Corpuscular Volume 92.5 fL (80-100); Mean Platelet Volume 10.6 fL (7.4-10.4); Platelet Count 125 K/uL (130-400); RDW Coefficient of Variation 23.5 % (11.5-14.5); RDW Standard Deviation 80.2 fL (36.4-46.3); Red Blood Count 3.35 M/uL (4.2-5.4); White Blood Count 1.51 K/uL (4.8-10.8)
[2020-06-09 07:01] LABS: Albumin Globulin Ratio 0.7 (0.9-2); Albumin Level 2.6 gm/dl (3.4-5.0); BUN Creatinine Ratio 27.3 (10-20); Bilirubin,Total 4.1 mg/dl (0.2-1); Calcium 8.5 mg/dl (8.5-10.1); Creatinine Clr Calc Pharmacy 159.5 ml/min; Est GFR (African American) 142.4; Est GFR (Non-African American) 122.8; Globulin 3.7 gm/dl (2.5-4.0); Magnesium 1.7 mg/dl (1.8-2.4); Potassium 3.8 mmol/L (3.5-5.1); Total Protein 6.3 gm/dl (6.4-8.2)
[2020-06-09] MEDS ORDERED: MAGNESIUM SULFATE / D5W 1 GM/100 ML BAG IV SCH (09:45)
[2020-06-09] MEDS: THIAMINE HCL 100 MG in SYRINGE 9 ML IV SCH (10:36)
[2020-06-09] MEDS: FOLIC ACID 1 MG in SYRINGE 9.8 ML IV SCH (10:37)
[2020-06-09] MEDS: COLESTIPOL HCL 1 GM TAB PO SCH ×2 (10:37→22:31)
[2020-06-09] MEDS: DICYCLOMINE HCL 10 MG CAP PO PRN (10:38)
[2020-06-09] MEDS: MULTIVITAMIN CHEWABLE TAB PO SCH (10:38)
[2020-06-09] MEDS: POTASSIUM CHLORIDE PWD 20 MEQ PACK PO SCH (10:38)
[2020-06-09] MEDS: PANTOprazole 40 MG TAB PO SCH (10:38)
[2020-06-09] MEDS: PANCREAZE (LIPASE 10,500U) CAP PO SCH ×3 (10:38→17:09)
[2020-06-09] MEDS: CITALOPRAM 20 MG TAB PO SCH (10:40)
[2020-06-09] MEDS: GABAPENTIN 400 MG CAP PO SCH ×3 (10:40→21:09)
[2020-06-09] MEDS: carvediloL 3.125 MG TAB PO SCH ×2 (10:40→21:10)
[2020-06-09] MEDS: CHOLECALCIFEROL 1,000 UNITS 25 MCG TAB PO SCH (10:40)
[2020-06-09] MEDS: LIDOCAINE 5% 1 PATCH TD SCH (10:41)
[2020-06-09] MEDS ORDERED: MAGNESIUM OXIDE 400 MG TAB PO ONE (13:53)
[2020-06-09] MEDS: BUTALBITAL/ACETAMIN/CAFFEINE TAB PO PRN (16:44)
--- NOTE | 2020-06-09 17:30 | Hospitalist Progress Note ---
Date of Service June 09, 2020 Assessment & Plan (1) Falls: (2) Chronic alcohol abuse: (3) Alcohol withdrawal: Patient has a history of chronic alcoholism with multiple admissions for abuse and withdrawal. CT head is negative for any acute abnormalities Continue alcohol withdrawal management protocol Continue ativan per protocol and gabapentin Librium to 10mg discontinued Continue thiamine and folate Counseling on alcohol cessation Continue monitor closely for DT Confusion CT head is negative for any acute abnormalities Confusion is due to metabolic encephalopathy due to alcohol intoxication on admission Ammonia level is less than 10 resolved Migraines Pt said that she used to take opioid in the past Fiorocetx1 given and helped with the headache Consider to add riboflavin and magnesium outpatient (4) Elevated LFTs: (5) Cirrhosis: Patient has history of alcohol abuse, cirrhosis complicated by esophageal varices and ascites. Patient also has history of RYGB Also has chronic diarrhea. AST and ALK elevated, 108 and 138 respectively GI on board Continue home colestipol and Creon and pantoprazole daily Continue monitor LFT (6) Hypomagnesemia: (7) Hypophosphatemia: (8) Hypokalemia: Mostly related to alcohol abuse and diarrhea Mg 1.7 today Mg replaced Continue monitor electrolytes Diarrhea Continue Imodium daily Diarrhea improves significantly (9) Pancytopenia: Chronic pancytopenia due to alcohol abuse, cirrhosis and history of RYGB Platelet 125 , WBC 1.5 Monitor cell counts. No fever or sign of infection at this time Prolong QTC Continue avoid meds that can cause QTC prolongation QTC improves with repeat EKG this morning QTC 444 today (10) DVT prophylaxis: SCD for now Admission and Anticipated Discharge Date Admission Date: May 30, 2020 Subjective Pt was seen and examined for follow up of weakness and diarrhea Lying in bed with no acute distress watching TV Pt said that her diarrhea is under control since taking Imodium as schedule She said that she feels better and was asking for food She continues complaints of headache She said that her energy is getting better Denies any chest pain, palpitation, dizziness, SOB and fever Review of Systems Review of Systems: All systems reviewed & are unremarkable except as noted in Subjective Physical Exam Physical Exam: General- No acute distress Head- atraumatic Eyes- +icteric ENT- oropharynx clear Neck- supple, no JVD Lungs- clear to auscultation Heart- regular rhythm; no murmur Abdomen- normal bowel sounds, soft, nontender Extremities- no calf tenderness Neuro- alert, oriented x 3; PERRL, EOMI; no facial palsy; no dysarthria, +mild tremor Skin- warm & dry Results & Data Results & Data ([facility]) Vital Signs (Past 12 Hours) Vital Signs Temp Pulse Pulse Pulse Resp BP Pulse Ox 06/09/20 15:33 36.8 C 79 18 98/67 L 94 06/09/20 12:21 37.4 C 81 20 99/67 L 96 06/09/20 07:31 67 06/09/20 07:00 36.3 C L 70 18 94/63 L 97 (1) Cirrhosis Hepatic cirrhosis type: alcoholic cirrhosis
[2020-06-09] MEDS: MIRTAZAPINE TAB 15 MG TAB PO SCH (21:09)
[2020-06-09] MEDS: traZODone HCL 50 MG TAB PO SCH (21:11)
[2020-06-09] MEDS: rOPINIRole HCL 0.25 MG TABLET PO SCH (21:11)
[2020-06-10] MEDS: LOPERAMIDE HCL 2 MG CAP PO SCH ×3 (03:38→13:30)
[2020-06-10 06:45] LABS: Albumin Level 2.6 gm/dl (3.4-5.0); BUN Creatinine Ratio 30.2 (10-20); Calcium 8.4 mg/dl (8.5-10.1); Creatinine Clr Calc Pharmacy 146.6 ml/min; Est GFR (African American) 138.5; Est GFR (Non-African American) 119.5; Magnesium 1.8 mg/dl (1.8-2.4); Potassium 3.7 mmol/L (3.5-5.1)
[2020-06-10 06:52] LABS: Albumin Globulin Ratio 0.7 (0.9-2); Bilirubin,Total 3.2 mg/dl (0.2-1); Globulin 3.7 gm/dl (2.5-4.0); Total Protein 6.3 gm/dl (6.4-8.2)
[2020-06-10] MEDS: POTASSIUM CHLORIDE PWD 20 MEQ PACK PO SCH (07:26)
[2020-06-10] MEDS: PANTOprazole 40 MG TAB PO SCH (07:27)
[2020-06-10] MEDS: MULTIVITAMIN CHEWABLE TAB PO SCH (07:28)
[2020-06-10] MEDS: CHOLECALCIFEROL 1,000 UNITS 25 MCG TAB PO SCH (07:28)
[2020-06-10] MEDS: THIAMINE HCL 100 MG in SYRINGE 9 ML IV SCH (07:28)
[2020-06-10] MEDS: CITALOPRAM 20 MG TAB PO SCH (07:28)
[2020-06-10] MEDS: FOLIC ACID 1 MG in SYRINGE 9.8 ML IV SCH (07:28)
[2020-06-10] MEDS: carvediloL 3.125 MG TAB PO SCH (07:28)
[2020-06-10] MEDS: LIDOCAINE 5% 1 PATCH TD SCH (07:28)
[2020-06-10] MEDS: PANCREAZE (LIPASE 10,500U) CAP PO SCH ×2 (07:28→11:34)
[2020-06-10] MEDS: GABAPENTIN 400 MG CAP PO SCH ×2 (07:28→13:31)
[2020-06-10] MEDS: hydrOXYzine HCl 25 MG TAB PO PRN (11:34)
[2020-06-10] MEDS: COLESTIPOL HCL 1 GM TAB PO SCH (11:34)
--- NOTE | 2020-06-10 14:02 | Discharge Summary ---
Date of Service June 10, 2020 Admission HPI Per Admitting Provider HISTORY OF PRESENT ILLNESS: This is a 55-year-old female with past medical history significant for chronic alcoholism, multiple admissions for alcohol abuse, end-stage liver disease, esophageal varices, portal hypertension, hypothyroidism, peripheral neuropathy, history of convulsions, depression, anxiety, restless legs syndrome, history of narcotic abuse, who was brought to the hospital because of fall at home. The patient fell in 05/28/2020 and she did not get up from the floor. She lives with her boyfriend and daughter. She did not allow them to call the hospital, but today she was having feces all over, so the family called and brought in here. Initially, she was complaining of pain all over. Currently, the patient received a dose of Ativan and she is sedated, could not get any history from the patient. Just got the labs and it is showing alcohol level 344, total bilirubin 6.3, AST of 252, ALT 54, alkaline phosphatase 256. SARS-CoV-2 PCR negative. The patient was diagnosed with COVID on 04/11/2020, currently COVID is negative. The patient's family members have COVID now currently. The patient is afebrile here and hemodynamically stable. Initially when she came in, she was saturating only 83% on room air, on 2 liters she is saturating 98% currently. CT chest mild posterior subpleural dependent atelectasis, mild right lower lobe atelectasis, remainder of the lung kerr are clear with no infiltrative process. Currently, could not get any history from the patient. Admission Exam Per Admitting Provider GENERAL: The patient is drowsy, not in acute distress. VITAL SIGNS: Temperature 36.9, pulse 65, respiratory rate 18, blood pressure 144/84, oxygen 83% on room air, 98% on 2 liters. HEENT: Pupils are equal, round, reactive to light. Icterus present. No pallor. NECK: No JVD seen, no neck masses seen. CARDIOVASCULAR: S1, S2 heard, regular rate and rhythm, no murmur, no gallop. RESPIRATORY SYSTEM: Normal AP diameter. No accessory muscle use. No wheezing, no crackles. ABDOMEN: Soft, bowel sounds present, nontender. No distention. CENTRAL NERVOUS SYSTEM: Drowsy, was talking prior to the Ativan. EXTREMITIES: No edema, no erythema seen. Principal Diagnosis Falls: Chronic alcohol abuse: Alcohol withdrawal: Confusion Migraines Elevated LFTs: Cirrhosis: Hypomagnesemia: Hypophosphatemia: Hypokalemia: Diarrhea Pancytopenia: Discharge Exam General- No acute distress Head- atraumatic Eyes- +icteric ENT- oropharynx clear Neck- supple, no JVD Lungs- clear to auscultation Heart- regular rhythm; no murmur Abdomen- normal bowel sounds, soft, nontender Extremities- no calf tenderness Neuro- alert, oriented x 3; PERRL, EOMI; no facial palsy; no dysarthria, +mild tremor Skin- warm & dry Discharge Data Allergies Allergy/AdvReac Type Severity Reaction Status Date / Time diphenhydramine Allergy Severe seizures/it Verified 05/30/20 02:05 mya/tremo rs bupropion Allergy Intermediate Palpitation Verified 05/30/20 02:05 s clarithromycin Allergy Intermediate HIVES Verified 05/30/20 02:05 aspirin Allergy Mild hives/ringing Verified 05/30/20 02:05 of ears oxaprozin Allergy Mild nausea/vomi Verified 05/30/20 02:05 ting salicylates Allergy Mild ringing in Verified 05/30/20 02:05 ears/hives Consultations 05/30/20 02:10 ED Decision to Admit Stat 05/30/20 08:00 Consult Gastroenterology Routine Ordered Studies 05/30/20 03:15 CT chest diagnostic wo con Urgent 05/30/20 08:18 US abdomen limited Urgent 06/02/20 08:59 CT head/brain wo con Routine XR chest 1V portable CLINICAL HISTORY: Shortness of breath COMPARISON STUDY: 05/30/2020 FINDINGS: The cardiac and mediastinal contours remain stable. There are low lung volumes. There is no overt failure. There is no focal pulmonary consolidation. The heart is borderline enlarged. No large pleural effusions are visualized.[ IMPRESSION: Low lung volumes. No evidence of focal pulmonary consolidation ACT 112: Negative or not required by law. Electronically signed by: Yahir Valencia M.D. 06/03/2020 7:21 AM Dictated: 06/03/20720Transcribed: 06/03/20720 CT SCAN OF THE BRAIN WITHOUT IV CONTRAST CLINICAL HISTORY: Change in mental status. COMPARISON STUDY: CT of the brain dated 10/19/2019. TECHNIQUE: Unenhanced axial CT scan of the brain is performed from the vertex to the skull base. A dose lowering technique was utilized adhering to the principles of ALARA. CT DOSE: 729.78 mGycm FINDINGS: Brain parenchyma: The brain parenchyma is normal in appearance. There is no hemorrhage, mass effect, or evidence of acute territorial ischemia by CT criteria. Sanchez-white matter differentiation is preserved. No extra-axial fluid collection is seen. Ventricles, sulci, cisterns: Normal in configuration. Intracranial vasculature: The visualized intracranial vasculature at the skull base is normal in appearance. Calvarium: Unremarkable. Sinuses and mastoids: The paranasal sinuses are clear. The mastoid air cells are well pneumatized. Orbits: The bony orbits are grossly intact. IMPRESSION: There is no hemorrhage, mass effect, or evidence of acute territorial ischemia by CT criteria. ACT 112: Negative or not required by law. Electronically signed by: Herbie Reese M.D. 06/02/2020 10:01 AM Dictated: 06/02/20 0959Transcribed: 06/02/20 0959 ABDOMINAL ULTRASOUND, RIGHT UPPER QUADRANT HISTORY: elevated LFTs. COMPARISON: CT of the abdomen and pelvis October 19, 2019. MRCP April 10, 2018. Right upper quadrant ultrasound June 01, 2017. FINDINGS: This exam is compromised by suboptimal penetration. Hepatic echogenicity is increased. There is mild dilatation of the common bile duct, measuring 1 cm. This may be related to previous cholecystectomy. Pancreas is largely obscured. There is no right hydronephrosis. IMPRESSION: 1. Exam compromised by suboptimal penetration. Largely obscured pancreas. 2. Hepatic steatosis. 3. Mild dilatation of the common bile duct. This is likely related to previous cholecystectomy however could be correlated with obstructive liver function tests. ACT 112: Negative or not required by law. Electronically signed by: Benedict Vaughn M.D. 05/30/2020 10:07 AM Dictated: 05/30/20 1005Transcribed: 05/30/[address] OF THE CHEST WITHOUT IV CONTRAST CLINICAL HISTORY: SOB, atypical chest xray COMPARISON STUDY: Chest radiograph May 30, 2020. Chest CT September 11, 2019. CT DOSE: 149.99 mGy.cm TECHNIQUE: Axial images of the chest were obtained without IV contrast. Images were reviewed in the axial, sagittal, and coronal planes. IV contrast was not administered for this examination. Automated exposure control was utilized for the study. A dose lowering technique was utilized adhering to the principles of ALARA. FINDINGS: No enlarged axillary, mediastinal or hilar lymph nodes are present. There is no pericardial effusion. There is mild cardiomegaly. No pneumothorax or pleural effusion is noted. Dependent airspace opacities reflect atelectasis. No consolidation to suggest pneumonia. No suspicious pulmonary nodules are present. Multiple old thoracic spine compression deformities are unchanged since exam of September 11, 2019. Old bilateral rib fractures are present. Visualized portions of the upper abdomen demonstrate severe hepatic steatosis. 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 IMPRESSION: 1. No acute process within the chest. 2. Mild cardiomegaly. 3. Severe hepatic steatosis. ACT 112: Negative or not required by law. Electronically signed by: Benedict Vaughn M.D. 05/30/2020 6:27 AM Dictated: 05/30/20621Transcribed: 05/30/20621 XR chest 1V portable HISTORY: Fall. Shortness of breath. COMPARISON: Chest 04/16/2020. FINDINGS: There are low lung volumes. No pneumothorax. No pleural effusions. The cardiac silhouette is mildly enlarged. No focal lung consolidations to suggest pneumonia. No evidence for pulmonary edema. No acute fractures within the visualized osseous structures. IMPRESSION: 1. Low lung volumes. 2. Mild cardiomegaly. 3. Otherwise, no acute process within the chest. ACT 112: Negative or not required by law. Electronically signed by: Brennen King M.D. 05/30/2020 7:47 AM Dictated: 05/30/20 0746Transcribed: 05/30/2046 Hospital Course (1) Falls: (2) Chronic alcohol abuse: (3) Alcohol withdrawal: Patient has a history of chronic alcoholism with multiple admissions for abuse and withdrawal. CT head is negative for any acute abnormalities Continue alcohol withdrawal management protocol Continue ativan per protocol and gabapentin Librium to 10mg discontinued Continue thiamine and folate Counseling on alcohol cessation Continue monitor closely for DT Confusion CT head is negative for any acute abnormalities Confusion is due to metabolic encephalopathy due to alcohol intoxication on admission Ammonia level is less than 10 resolved Migraines Pt said that she used to take opioid in the past Fiorocetx1 given and helped with the headache Consider to add riboflavin and magnesium outpatient Improved (4) Elevated LFTs: (5) Cirrhosis: Patient has history of alcohol abuse, cirrhosis complicated by esophageal varices and ascites. Patient also has history of RYGB Also has chronic diarrhea. AST and ALK elevated, 108 and 138 respectively GI on board Continue home colestipol and Creon and pantoprazole daily Check Liver enzymes in 1 week Continue monitor LFT (6) Hypomagnesemia: (7) Hypophosphatemia: (8) Hypokalemia: Mostly related to alcohol abuse and diarrhea Mg 1.8 today Continue mg supplement Check Level in 1 week Diarrhea Continue Imodium daily Diarrhea improves significantly (9) Pancytopenia: Chronic pancytopenia due to alcohol abuse, cirrhosis and history of RYGB Platelet 125 , WBC 1.5 Monitor cell counts. No fever or sign of infection at this time Prolong QTC Continue avoid meds that can cause QTC prolongation QTC improves with repeat EKG this morning QTC 444 today (10) DVT prophylaxis: SCD for now Disposition Discharge home Pt refused rehab Total Time Total Time Spent Total Time Spent (In Minutes): 35 minutes Total Time Includes: Examination of the Patient, Discharge Planning, Medication Reconciliation, Communication With Other Providers and Other Discharge Plan Discharge Items Patient Disposition: Home - Self-Care Reason For Visit: FALL Discharge Diagnosis: Falls: Chronic alcohol abuse: Alcohol withdrawal: Confusion Migraines Elevated LFTs: Cirrhosis: Hypomagnesemia: Hypophosphatemia: Hypokalemia: Diarrhea Pancytopenia: Activity: Resume your previous activity Non-emergency contact: Primary Care Provider and Sustainability Purchasing Agent Call non-emergency contact if: you have any medication questions and your symptoms worsen Follow-up/Referrals: Pita Borges MD [Primary Care Provider] - (Date & Time 06/13/2020 11:20 AM Provider Abran Alatorre MD Department Internal Medicine [facility] ) Diet: Low Potassium (2gm) Addtl Attending Provider Instructions: Follow up with your primary care provider Dr Abran Alatorre (Dr. Barnes- Aiden colleague) on 06/13/2020 at 11:20 AM @ Internal Medicine [facility] Follow up with your gastroenterology Counseling on alcohol cessation Fall precaution Check CMP and magnesium in 1 week to monitor your liver enzymes and electrolytes (Your provider will order ) Pending Studies at Discharge: No Stand-Alone Forms: My [facility], Smoking Cessation Medications and DC Order Prescriptions: New potassium chloride 20 mEq Packet 40 meq PO QAM Qty: 30 RF: 0 riboflavin (vitamin B2) 100 mg tablet 100 mg PO DAILY Qty: 30 RF: 0 magnesium oxide 400 mg (241.3 mg magnesium) tablet 400 mg PO DAILY Qty: 30 RF: 0 Continued loperamide 2 mg capsule 2 mg PO Q8H PRN (Reason: Diarrhea) RF: 0 dicyclomine 10 mg Capsule 10 mg PO BID PRN (Reason: pain) Qty: 30 RF: 0 trazodone 50 mg Tablet 50 mg PO HS Qty: 30 RF: 0 thiamine HCl (vitamin B1) [Vitamin B-1] 100 mg Tablet 100 mg PO QAM Qty: 30 RF: 0 lidocaine 5 % Adhesive Patch,Medicated 1 patch transdermal QAM Qty: 10 RF: 0 folic acid 1 mg Tablet 1 mg PO QAM Qty: 30 RF: 0 citalopram [Celexa] 10 mg Tablet 20 mg PO DAILY 30 Days Qty: 60 RF: 0 gabapentin 400 mg capsule 400 mg PO TID 30 Days Qty: 90 RF: 0 ropinirole [Requip] 0.25 mg Tablet 0.25 mg PO HS 30 Days Qty: 30 RF: 0 pantoprazole 40 mg tablet,delayed release (DR/EC) 40 mg PO DAILY Qty: 30 RF: 0 mirtazapine 15 mg tablet 15 mg PO HS 30 Days Qty: 30 RF: 0 colestipol 1 gram Tablet 2 g PO BID 30 Days Qty: 120 RF: 0 carvedilol 3.125 mg tablet 3.125 mg PO BID RF: 0 hydroxyzine HCl 25 mg tablet 25 - 50 mg PO BID RF: 0 Creon 36,000-114,000- 180,000 unit capsule,delayed release(DR/EC) 1 cap PO TIDM RF: 0 Discharge Orders: Discharge Order (Routine); Ordered 06/10/20 Ordered By: Ainsley Munoz Admission Data Admit Date/Time: 05/30/20 04:39 Attending Provider: Ainsley Munoz Admit Provider: Taiwo Aguilera Primary Care Provider: Pita Borges Other Providers: Taiwo Aguilera ; Pierre Vargas ; Jeannette Simon I.
== END 2020-06-10 14:30 | disposition home health service (06) | DRG 897 ==
LOC: ED 01:20 → SUATTDRO 04:39 → 2S 04:39 → 2N 06-03 15:31

== ENCOUNTER 2021-03-11 18:24 | Inpatient (IN) ==
[2021-03-11 19:49] LABS: Mean Corpuscular Hgb Conc 32.4 g/dL (32-36)
[2021-03-11 19:58] LABS: Hematocrit (blood only) 40.8 % (37-47); Hemoglobin 13.2 g/dL (12.0-16.0); Mean Corpuscular Hemoglobin 30.6 pg (25-34); Mean Corpuscular Volume 94.7 fL (80-100); RDW Coefficient of Variation 21.6 % (11.5-14.5); RDW Standard Deviation 77.5 fL (36.4-46.3); Red Blood Count 4.31 M/uL (4.2-5.4); White Blood Count 1.68 K/uL (4.8-10.8)
[2021-03-11 20:08] LABS: Platelet Count 68 K/uL (130-400)
[2021-03-11 20:09] LABS: Alanine Aminotransferase 25 U/L (7-52); Albumin Globulin Ratio 0.6 (0.9-2); Albumin Level 2.9 gm/dl (3.4-5.0); Alkaline Phosphatase 642 U/L (34-104); Anion Gap 7 (3-11); Aspartate Aminotransferase 111 U/L (13-39); Basophils # (auto) 0.02 K/uL (0-0.2); Basophils % (auto) 1.2 %; Bilirubin,Total 2.5 mg/dl (0.2-1.0); Blood Urea Nitrogen 3 mg/dl (6-23); Calcium 7.8 mg/dl (8.5-10.1); Carbon Dioxide 24 mmol/L (21-32); Chloride 103 mmol/L (98-107); Eosinophils # (auto) 0.09 K/uL (0-0.5); Eosinophils % (auto) 5.4 %; Est GFR (African American) 131.8 ml/min; Est GFR (Non-African American) 113.7 ml/min; Globulin 4.5 gm/dl (2.5-4.0); Glucose 94 mg/dl (70-99(Fasting)); Lipase 17 U/L (11-82); Lymphocytes # (auto) 0.54 K/uL (1.2-3.4); Lymphocytes % (auto) 32.1 %; Monocytes # (auto) 0.21 K/uL (0.11-0.59); Monocytes % (auto) 12.5 %; Neutrophils # (auto) 0.82 K/uL (1.4-6.5); Neutrophils % (auto) 48.8 %; Platelet Estimate Decreased (Normal); Potassium 3.7 mmol/L (3.5-5.1); Sodium 134 mmol/L (136-145); Total Protein 7.4 gm/dl (6.0-8.3)
[2021-03-11] MEDS ORDERED: SODIUM CHLORIDE 0.9% 1000ML 1,000 ML IV SCH (20:45)
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
[2021-03-11] MEDS ORDERED: fentaNYL citrate 100 MCG/2 ML VIAL IV STA (21:07)
[2021-03-11 21:19] LABS: INR 1.3 (0.9-1.1); Prothrombin Time 12.5 Seconds (9.0-12.0)
[2021-03-11] MEDS ORDERED: OPTIRAY 320 100ml IV ONE (21:57)
[2021-03-11] MEDS ORDERED: THIAMINE HCL 100 MG in SYRINGE 9 ML IV STA (23:40)
[2021-03-12] MEDS ORDERED: cefTRIAXone SODIUM 1,000 MG/50 ML BAG IV STA (00:07)
[2021-03-12] MEDS ORDERED: ALBUMIN 25% 100 mL 25 GM/100 ML VIAL IV ONE (00:08)
--- NOTE | 2021-03-12 00:09 | History & Physical Report ---
Date of Service March 12, 2021 Assessment & Plan (1) Abdominal ascites: Plan: Secondary to decompensated alcoholic cirrhosis Possible SBP COVID-19 illness Patient nontoxic for now Worsening diarrhea symptoms Possibly from Covid Rule out C. difficile given recent hospital confinement/antibiotic Rx Alcoholic hepatitis, good prognosis with Madrey's DF score of 11.7 points chronic pancytopenia secondary to alcoholism chronic pain as per records Hyperglycemia rule out DM Narcotic abuse as per records. past tobacco abuse. Medical telemetry Ceftriaxone, Albumin for possible SBP Diagnostic and therapeutic paracentesis in a.m. by interventional Radiology if feasible given COVID-19 status GI consult Re: Ascites (Patient known to [facility].) Stool C. difficile Supportive management for COVID-19 illness AWSS, DT precautions Judicious narcotic use given history narcotic abuse as per records DVT prophylaxis. SCDs RE thrombocytopenia Full code Text document was generated using [employer] voice recognition software. It may contain grammatical or spelling errors. Kindly contact undersigned for clarification of any documentation item in question. History of Present Illness Chief Complaint: Abdominal pain/distention Primary Care Provider: Filiberto Moya History obtained from patient and records. Medical history significant for alcoholic cirrhosis, ongoing alcohol abuse, history of gastric varices, chronic pancytopenia as per records, chronic pain as per records, history seizures as per records, history thoracic/lumbar compression fracture, past tobacco abuse. Recent confinement [facility] February 07, 2021 to February 16, 2021 for decompensated cirrhosis and and UGIB secondary to esophageal varices. Patient transferred from [facility]. Patient underwent successful visceral angiography with left gastric artery branch embolization via right groin femoral artery access at [facility] [place]. Two paracentesis procedures done for ascites at [facility] [place]. Occasional EtOH intake upon return home. Patient noted increasing abdominal distention the last week with a little worsening of chronic watery diarrhea symptoms. Shortness of breath from abdominal distention as per patient. Dry cough symptoms without chest pain. No known recent COVID-19 contacts. Patient claims to have completed COVID-19 vaccination. Patient consulted ER for worsening symptoms. 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 Allergies Allergy/AdvReac Type Severity Reaction Status Date / Time diphenhydramine Allergy Severe seizures/it Verified 03/11/21 20:22 mya/tremo rs bupropion Allergy Intermediate Palpitation Verified 03/11/21 20:22 s clarithromycin Allergy Intermediate HIVES Verified 03/11/21 20:22 aspirin Allergy Mild hives/ringing Verified 03/11/21 20:22 of ears oxaprozin Allergy Mild nausea/vomi Verified 03/11/21 20:22 ting salicylates Allergy Mild ringing in Verified 03/11/21 20:22 ears/hives Home Medications Medication Instructions Recorded Confirmed Type loperamide 2 mg capsule 2 mg PO Q8H PRN 09/11/19 03/11/21 History citalopram 10 mg tablet (Celexa) 20 mg PO DAILY 30 Days #60 tab 11/09/19 03/11/21 Rx colestipol 1 gram tablet 2 g PO BID 30 Days #120 tab 11/09/19 03/11/21 Rx dicyclomine 10 mg capsule 10 mg PO BID PRN #30 cap 11/09/19 03/11/21 Rx folic acid 1 mg tablet 1 mg PO QAM #30 tab 11/09/19 03/11/21 Rx gabapentin 400 mg capsule 400 mg PO TID 30 Days #90 cap 11/09/19 03/11/21 Rx lidocaine 5 % topical patch 1 patch TRANSDERMAL QAM #10 ea 11/09/19 03/11/21 Rx pantoprazole 40 mg tablet,delayed 40 mg PO DAILY #30 tab 11/09/19 03/11/21 Rx release thiamine HCl (vitamin B1) 100 mg 100 mg PO QAM #30 tab 11/09/19 03/11/21 Rx tablet (Vitamin B-1) hydroxyzine HCl 25 mg tablet 25 - 50 mg PO BID PRN 05/30/20 03/11/21 History potassium chloride 20 mEq oral 40 meq PO QAM #30 ea 06/10/20 03/11/21 Rx packet riboflavin (vitamin B2) 100 mg 100 mg PO DAILY #30 tab 06/10/20 03/11/21 Rx tablet ropinirole 0.25 mg tablet 0.25 mg PO HS 02/06/21 03/11/21 History trazodone 50 mg tablet 50 mg PO HS PRN 03/11/21 03/11/21 History Past Med/Surg History Medical History Alcohol abuse hx of Anxiety Anxiety Chronic pain Cirrhosis Degenerative disc disease Esophageal varices with banding Factitious disorder Fibromyalgia Hypomagnesemia Lumbago Multiple sclerosis Opiate addiction HX OF AND NO PROBLEMS NOW Opiate misuse Pancreatitis Pelvis fracture HX OF CRUSHED PELVIS - FROM ACCIDENT FALLING INTO DUMPSTER CHRONIC PAIN Presence of intrathecal pump PUMP IN PLACE AND NOT WORKING IT WAS TURNED OFF!!! containing morphine 0.189mg/day and fentanyl 2.52mcg/day miminimal rate per pt "it doesnt work I haven't been able to afford the medication for 3 years now"?? Seizures LAST ONE SEVERAL MONTHS AGO -- TAKES GABAPENTIN FOLLOW WITH DOCTOR KATHARINE ABRAHAM FROM [place] Stenosis of surgical anastomosis site of digestive tract Surgical History History of cholecystectomy History of colonoscopy History of esophagogastroduodenoscopy (EGD) History of open reduction and internal fixation (ORIF) procedure left arm/left leg--hardware in place History of Jeffy-en-Y gastric bypass History of tooth extraction all teeth removed History of total hysterectomy with bilateral salpingo-oophorectomy (BSO) Hx of laparoscopy FOR ENDOMETRIOSIS Hx of resection of small bowel DUE TO ENDOMETRIOSIS Family History Other Aneurysm Cancer No family history of adverse response to anesthesia Stroke Social History Smoking Status: Current some day smoker Tobacco Type: Cigarettes Second Hand Exposure: No; Hx Alcohol Use: Yes Alcohol type: beer Hx Substance Use: No Preferred Language: Barbadian Communication Ability: Effective Lamp Mechanic Required: No Beliefs That Will Affect Care: None marital status: Current Living Situation: Significant Other How many Children do You have: 3 Feels Safe at Home: Yes Assistive Devices: Walker Review of Systems Review of Systems: As per HPI, all 10 systems reviewed, all other ROS negative Physical Exam Physical Exam: GENERAL: Slightly uncomfortable, no respiratory distress SKIN: Pallor, warm HEENT: Pale palpebral conjunctivae, no ptosis, dry buccal mucosa NECK : Supple, no tenderness CHEST : Decreased breath sounds, no tenderness HEART : RRR, no obvious murmurs ABDOMEN: Marked distention, hypogastric tenderness, positive fluid wave EXTREMITIES : Minimal LE swelling, no LE tenderness, no other conspicuous deformities noted NEUROLOGIC : Coherent, no facial asymmetry, gait and stance not assessed Results & Data Results & Data ([facility]) Vital Signs (Past 12 Hours) Vital Signs Temp Pulse Pulse Resp BP BP Pulse Ox 03/11/21 22:20 36.8 C 83 18 130/75 94 03/11/21 18:27 36.8 C 87 18 122/86 92 Laboratory Results Laboratory Results WBC 1.68 K/uL (4.8-10.8) L 03/11/21 19:30 RBC 4.31 M/uL (4.2-5.4) 03/11/21 19:30 Hgb 13.2 g/dL (12.0-16.0) 03/11/21 19:30 Hct 40.8 % (37-47) 03/11/21 19:30 MCV 94.7 fL (80-100) 03/11/21 19:30 MCH 30.6 pg (25-34) 03/11/21 19:30 MCHC 32.4 g/dL (32-36) 03/11/21 19:30 RDW Std Deviation 77.5 fL (36.4-46.3) H 03/11/21 19:30 RDW Coeff of Chetan 21.6 % (11.5-14.5) H 03/11/21 19:30 Plt Count 68 K/uL (130-400) L 03/11/21 19:30 Immature Gran % (Auto) 0.0 % 03/11/21 19:30 Neut % (Auto) 48.8 % 03/11/21 19:30 Lymph % (Auto) 32.1 % 03/11/21 19:30 [place] % (Auto) 12.5 % 03/11/21 19:30 Eos % (Auto) 5.4 % 03/11/21 19:30 Baso % (Auto) 1.2 % 03/11/21 19:30 Neut # (Auto) 0.82 K/uL (1.4-6.5) L* 03/11/21 19:30 Lymph # (Auto) 0.54 K/uL (1.2-3.4) L 03/11/21 19:30 [place] # (Auto) 0.21 K/uL (0.11-0.59) 03/11/21 19:30 Eos # (Auto) 0.09 K/uL (0-0.5) 03/11/21 19:30 Baso # (Auto) 0.02 K/uL (0-0.2) 03/11/21 19:30 Immature Gran # (Auto) 0.00 K/uL (0.00-0.02) 03/11/21 19:30 Platelet Estimate Decreased (Normal) L 03/11/21 19:30 PT 12.5 Seconds (9.0-12.0) H 03/11/21 20:59 INR 1.3 (0.9-1.1) H 03/11/21 20:59 Sodium 134 mmol/L (136-145) L 03/11/21 19:30 Potassium 3.7 mmol/L (3.5-5.1) 03/11/21 19:30 Chloride 103 mmol/L (98-107) 03/11/21 19:30 Carbon Dioxide 24 mmol/L (21-32) 03/11/21 19:30 Anion Gap 7 (3-11) 03/11/21 19:30 BUN 3 mg/dl (6-23) L 03/11/21 19:30 Creatinine 0.43 mg/dl (0.6-1.2) L 03/11/21 19:30 Est Cr Clr Drug Dosing Not Reportable 03/11/21 19:30 Est GFR ( Amer) 131.8 ml/min 03/11/21 19:30 Est GFR (Non-Af Amer) 113.7 ml/min 03/11/21 19:30 BUN/Creatinine Ratio 7.0 (10-20) L 03/11/21 19:30 Glucose 94 mg/dl (70-99(Fasting)) 03/11/21 19:30 Calcium 7.8 mg/dl (8.5-10.1) L 03/11/21 19:30 Magnesium 1.7 mg/dl (1.7-2.4) 03/11/21 21:00 Total Bilirubin 2.5 mg/dl (0.2-1.0) H 03/11/21 19:30 AST 111 U/L (13-39) H 03/11/21 19:30 ALT 25 U/L (7-52) 03/11/21 19:30 Alkaline Phosphatase 642 U/L (34-104) H 03/11/21 19:30 Total Protein 7.4 gm/dl (6.0-8.3) 03/11/21 19:30 Albumin 2.9 gm/dl (3.4-5.0) L 03/11/21 19:30 Globulin 4.5 gm/dl (2.5-4.0) H 03/11/21 19:30 Albumin/Globulin Ratio 0.6 (0.9-2) L 03/11/21 19:30 Lipase 17 U/L (11-82) 03/11/21 19:30 Procalcitonin 0.12 ng/ml (0-0.5) 03/11/21 19:50 SARS-CoV-2, RNA, NAAT POSITIVE (NEGATIVE) A* 03/11/21 21:[address] abdomen pelvis initial read: There is a large amount of ascites throughout the peritoneal cavitywhich is increased since previous measuring approximately4.3 cmthick adjacent to the inf erior aspect of the right liver lobe compared to 3 cmpreviously. The liver is fattyinfiltrated and small measuring 10 cmcraniocaudad. No focal liver lesion is seen. The portal vein is patent. The spleen is upper normal in size. Surgical clips and marleen fromprevious gastric bypass surgery. Bowel loops are nondilated. There is diffuse bowel wall thickening involving the cecumand right colon consistent with colitis, increased since previous. No pneumoperitoneumis identified. The pancreas, adrenal glands, and kidneys appear within normal limits. There is metallic artifact froma electronic device projecting over the right lower pelvis aswell as metallic artifact fromprevious left hip screwand femur kaylee. There are severe degenerative changeswith remodeling of the left hip and mild to moderate multilevel degenerative changes in the thoracic and lumbar spine, unchanged. No acute fracture or subluxation is identified. Chest x-ray as per my interpretation atelectasis, elevated right hemidiaphragm (1) Abdominal ascites Ascites type: due to alcoholic cirrhosis Qualified Code(s): K70.31 - Alcoholic cirrhosis of liver with ascites
[2021-03-12] MEDS: oxyCODONE HCL IR 5 MG TAB (IMMEDIATE RELEASE) PO PRN ×4 (00:58→18:42)
[2021-03-12] MEDS ORDERED: LORazepam 3 MG/6 ML VIAL IV PRN (03:52)
[2021-03-12] MEDS ORDERED: ATIVAN IV ALCOHOL WITHDRAWL IV PRN (03:52)
[2021-03-12] MEDS: ALBUMIN 25% 12.5 GM/50 ML VIAL IV SCH ×3 (06:00→20:12)
[2021-03-12 06:05] LABS: Albumin Globulin Ratio 0.8 (0.9-2); Albumin Level 2.4 gm/dl (3.4-5.0); BUN Creatinine Ratio 9.7 (10-20); Bilirubin,Total 2.1 mg/dl (0.2-1.0); Calcium 7.1 mg/dl (8.5-10.1); Creatinine Clr Calc Pharmacy 172.9 ml/min; Est GFR (African American) 145.7 ml/min; Est GFR (Non-African American) 125.7 ml/min; Globulin 3.1 gm/dl (2.5-4.0); Potassium 3.6 mmol/L (3.5-5.1); Total Protein 5.5 gm/dl (6.0-8.3)
[2021-03-12 06:15] LABS: Hematocrit (blood only) 30.5 % (37-47); Hemoglobin 9.9 g/dL (12.0-16.0); Mean Corpuscular Hemoglobin 30.5 pg (25-34); Mean Corpuscular Hgb Conc 32.5 g/dL (32-36); Mean Corpuscular Volume 93.8 fL (80-100); Platelet Count 53 K/uL (130-400); RDW Coefficient of Variation 21.4 % (11.5-14.5); RDW Standard Deviation 74.6 fL (36.4-46.3); Red Blood Count 3.25 M/uL (4.2-5.4); White Blood Count 1.02 K/uL (4.8-10.8)
--- NOTE | 2021-03-12 06:36 | XRay Report ---
XR chest 1V portable HISTORY: 56 years-old Female sob acute shortness of breath COMPARISON: Chest radiograph 02/06/2021 TECHNIQUE: Portable AP view of the chest FINDINGS: The cardiomediastinal and hilar silhouettes are within normal limits. There is unchanged right hemidi aphragmatic elevation. No pneumothorax, large pleural effusion or overt pulmonary edema. Mild linear bibasilar atelectasis/scarring. Degenerative changes of the shoulders and spine. Surgical clips proje ct over the upper abdomen. IMPRESSION: No acute process. ACT 112: Negative or not required by law. The above report was generated using voice recognition software. It may contain grammatical, syntax o r spelling errors. Electronically signed by: Fredy Matos M.D. 03/12/2021 6:34 AM
[2021-03-12 06:39] LABS: Anisocytosis Present; Basophils # (auto) 0.01 K/uL (0-0.2); Eosinophils # (auto) 0.04 K/uL (0-0.5); Eosinophils % (auto) 3.9 %; Lymphocytes # (auto) 0.41 K/uL (1.2-3.4); Lymphocytes % (auto) 40.2 %; Monocytes # (auto) 0.16 K/uL (0.11-0.59); Monocytes % (auto) 15.7 %; Neutrophils % (auto) 39.2 %
[2021-03-12 07:00] LABS: Estimated Average Glucose 80 mg/dl; Hemoglobin A1C 4.4 % (4.5-5.6)
--- NOTE | 2021-03-12 07:09 | CT Scan Report ---
CT abd pelvis IV con only CLINICAL HISTORY: abd pain, hx colitis/cirrhosis TECHNIQUE: Helical axial images of the abdomen and pelvis were obtained and displayed. Automated dose lowering techniques and/or adjustment according to patient size were utilized for this exam. This e xam was performed with intravenous contrast. COMPARISON: Comparison is made to CT abdomen pelvis 02/06/2021 FINDINGS: Lower chest: No acute abnormality Liver: Nodular contour of the liver is seen compatible with cirrhosis. The liver is decreased in size . Fatty infiltration is again seen in the hepatic parenchyma. Gallbladder and biliary tree: Patient is status post cholecystectomy. Physiologic prominence of the b iliary ducts is noted. Pancreas: Unremarkable, no focal lesions. Spleen: Spleen is prominent size measuring 12 cm in length. Adrenals: Unremarkable. Kidneys and ureters: Unremarkable. Bladder: Unremarkable. Reproductive organs: Patient is status post hysterectomy. Bowel: Limited evaluation due to ascites, however there is thickening of the right:. This is similar in appearance to prior exam. Postsurgical changes are seen in the stomach and bowel. Lymph nodes Retroperitoneal: Unremarkable. Mesenteric: Unremarkable. Pelvic: Unremarkable. Peritoneum: Moderate to large ascites, increased from prior exam. Vessels: Unremarkable. Abdominal wall: Mild body wall edema is seen. Bones: Degenerative changes in the visualized spine. Compression deformity of L2, L4, L5 is unchanged . Partial visualization of multiple thoracic compression deformities. Hardware is seen in the left fe mur. IMPRESSION: 1. Increased ascites and redemonstration of cirrhotic and steatotic changes. 2. Bowel wall thickening may be secondary to edema, however clinical correlation for infectious/infl ammatory colitis is recommended. 3. Additional findings as above. ACT 112: Negative or not required by law. Electronically signed by: Roger Flores M.D. 03/12/2021 7:08 AM
[2021-03-12] MEDS: CITALOPRAM 20 MG TAB PO SCH (08:54)
[2021-03-12] MEDS: FOLIC ACID 1 MG TAB PO SCH (08:55)
[2021-03-12] MEDS: GABAPENTIN 400 MG CAP PO SCH ×3 (08:55→21:02)
[2021-03-12] MEDS: LIDOCAINE 5% 1 PATCH TD SCH (08:56)
[2021-03-12] MEDS: VITAMIN B COMPLEX TAB PO SCH (08:59)
[2021-03-12] MEDS: THIAMINE HCL 100 MG TAB PO SCH (08:59)
[2021-03-12] MEDS: PANTOprazole 40 MG TAB PO SCH (08:59)
--- NOTE | 2021-03-12 10:02 | Gastrointestinal Consultation ---
Date of Consultation March 12, 2021 History of Present Illness Reason for Consultation: Ascites, cirrhosis Attending Physician: Ainsley Munoz MD History of Present Illness Patient is a 56 yo female with a history of alcoholic cirrhosis complicated with esophageal varices. MELD is Allergies Allergy/AdvReac Type Severity Reaction Status Date / Time diphenhydramine Allergy Severe seizures/it Verified 03/11/21 20:22 mya/tremo rs bupropion Allergy Intermediate Palpitation Verified 03/11/21 20:22 s clarithromycin Allergy Intermediate HIVES Verified 03/11/21 20:22 aspirin Allergy Mild hives/ringing Verified 03/11/21 20:22 of ears oxaprozin Allergy Mild nausea/vomi Verified 03/11/21 20:22 ting salicylates Allergy Mild ringing in Verified 03/11/21 20:22 ears/hives Home Medications Medication Instructions Recorded Confirmed Type loperamide 2 mg capsule 2 mg PO Q8H PRN 09/11/19 03/11/21 History citalopram 10 mg tablet (Celexa) 20 mg PO DAILY 30 Days #60 tab 11/09/19 03/11/21 Rx colestipol 1 gram tablet 2 g PO BID 30 Days #120 tab 11/09/19 03/11/21 Rx dicyclomine 10 mg capsule 10 mg PO BID PRN #30 cap 11/09/19 03/11/21 Rx folic acid 1 mg tablet 1 mg PO QAM #30 tab 11/09/19 03/11/21 Rx gabapentin 400 mg capsule 400 mg PO TID 30 Days #90 cap 11/09/19 03/11/21 Rx lidocaine 5 % topical patch 1 patch TRANSDERMAL QAM #10 ea 11/09/19 03/11/21 Rx pantoprazole 40 mg tablet,delayed 40 mg PO DAILY #30 tab 11/09/19 03/11/21 Rx release thiamine HCl (vitamin B1) 100 mg 100 mg PO QAM #30 tab 11/09/19 03/11/21 Rx tablet (Vitamin B-1) hydroxyzine HCl 25 mg tablet 25 - 50 mg PO BID PRN 05/30/20 03/11/21 History potassium chloride 20 mEq oral 40 meq PO QAM #30 ea 06/10/20 03/11/21 Rx packet riboflavin (vitamin B2) 100 mg 100 mg PO DAILY #30 tab 06/10/20 03/11/21 Rx tablet ropinirole 0.25 mg tablet 0.25 mg PO HS 02/06/21 03/11/21 History trazodone 50 mg tablet 50 mg PO HS PRN 03/11/21 03/11/21 History Patient History Medical History Alcohol abuse hx of Anxiety Anxiety Chronic pain Cirrhosis Degenerative disc disease Esophageal varices with banding Factitious disorder Fibromyalgia Hypomagnesemia Lumbago Multiple sclerosis Opiate addiction HX OF AND NO PROBLEMS NOW Opiate misuse Pancreatitis Pelvis fracture HX OF CRUSHED PELVIS - FROM ACCIDENT FALLING INTO DUMPSTER CHRONIC PAIN Presence of intrathecal pump PUMP IN PLACE AND NOT WORKING IT WAS TURNED OFF!!! containing morphine 0.189mg/day and fentanyl 2.52mcg/day miminimal rate per pt "it doesnt work I haven't been able to afford the medication for 3 years now"?? Seizures LAST ONE SEVERAL MONTHS AGO -- TAKES GABAPENTIN FOLLOW WITH DOCTOR KATHARINE ABRAHAM FROM [place] Stenosis of surgical anastomosis site of digestive tract Surgical History History of cholecystectomy History of colonoscopy History of esophagogastroduodenoscopy (EGD) History of open reduction and internal fixation (ORIF) procedure left arm/left leg--hardware in place History of Jeffy-en-Y gastric bypass History of tooth extraction all teeth removed History of total hysterectomy with bilateral salpingo-oophorectomy (BSO) Hx of laparoscopy FOR ENDOMETRIOSIS Hx of resection of small bowel DUE TO ENDOMETRIOSIS Family History Other Aneurysm Cancer No family history of adverse response to anesthesia Stroke Social History Smoking Status: Current some day smoker Tobacco Type: Cigarettes Second Hand Exposure: No; Hx Alcohol Use: Yes Alcohol type: beer Hx Substance Use: No Preferred Language: [place] Island[place] Communication Ability: Effective Inspector Welded Parts Required: No Beliefs That Will Affect Care: None marital status: Current Living Situation: Significant Other How many Children do You have: 3 Feels Safe at Home: Yes Assistive Devices: Walker Results & Data ([facility]) Vital Signs (Past 12 Hours) Vital Signs Temp Pulse Pulse Resp BP Pulse Ox 03/12/21 07:00 75 16 80/53 L 92 03/12/21 06:02 82 18 122/71 95 03/12/21 05:41 81 18 93 03/12/21 05:00 36.7 C 81 18 114/82 93 03/12/21 03:00 93/68 L 03/12/21 01:09 86/47 L 03/12/21 01:06 85/65 L 03/12/21 00:30 83/51 L 03/12/21 00:00 87 18 94/56 L 93 03/11/21 22:20 36.8 C 83 18 130/75 94 PG Care Time/CCT Total # of Minutes Spent Total Time Spent with Patient: Total time spent is greater than 50% in coordination of care (as documented) at patient's floor/unit and/or counseling patient: Coding
[2021-03-12] MEDS: COLESTIPOL HCL 1 GM TAB PO SCH ×3 (10:11→21:02)
[2021-03-12] MEDS: ALBUMIN 25% 100 mL 25 GM/100 ML VIAL IV SCH ×2 (13:02→14:16)
[2021-03-12] MEDS: FUROSEMIDE 40 MG TAB PO SCH (13:03)
[2021-03-12] MEDS: SPIRONOLACTONE 100 MG TAB PO SCH (13:05)
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
[2021-03-12] MEDS: cefTRIAXone SODIUM 2,000 MG in DEXTROSE 5% 50 ML IV SCH (14:16)
[2021-03-12] MEDS: LORazepam 1 MG/2 ML VIAL IV PRN (18:35)
[2021-03-12 20:38] LABS: Appearance Urine Clear (Clear); Bilirubin Urine Negative (Negative); Blood Urine Negative (Negative); Color Urine Yellow; Glucose Urine UA Negative (Negative); Ketones Urine Negative (Negative); Leukocyte Esterase Urine Negative (Negative); Nitrite Urine Negative (Negative); Protein Urine Negative (Negative); Specific Gravity Urine 1.007 (1.000-1.030); Urobilinogen Urine Negative (Negative)
[2021-03-12] MEDS: rOPINIRole HCL 0.25 MG TABLET PO SCH (21:03)
--- NOTE | 2021-03-12 21:42 | Communication Note ---
Date of Service: March 12, 2021 Patient was seen and examined. Lying in bed with no acute distress. She said that she continued to have abdominal pain associated with nausea. Her abdominal is distended and caused her to have shortness of breath. She went to get the paracentesis done but it was canceled because patient felt like she was about to have a seizure. She did not have a seizure but she felt shaky and tremulous. She said that her last drink of alcohol was yesterday. She said that she cut down on her alcohol and she said that she drinks on weekend mostly during foot ball game. Denies any chest pain, cough, and fever. exam General- No acute distress Head- atraumatic Eyes- PERRL, EOMI, ENT- oropharynx clear Neck- supple, no JVD Lungs- clear to auscultation Heart- regular rhythm; no murmur Abdomen- +ascites, +abdominal pain Extremities- no calf tenderness Neuro- alert, oriented x 3; PERRL, EOMI; no facial palsy; no dysarthria, +tremors Skin- warm & dry A/P Chronic alcohol abuse Alcohol withdrawal Patient has a history of chronic alcoholism with multiple admissions for alcohol abuse and withdrawal. Continue alcohol withdrawal management protocol with gabapentin and ativan Continue thiamine and folate Counseling on alcohol cessation Continue monitor closely for DT Abdominal pain Elevated LFTs Cirrhosis Patient has history of alcohol abuse, cirrhosis complicated by esophageal varices and ascites. CT abd/pelvis showed Increased ascites and redemonstration of cirrhotic and steatotic changes. GI on board Paracentesis was cancelled because pt tought that she was having a seizure Will start Ceftriaxone 2g IV for SBP coverage Lasix and spironolactone resumed as per GI Strict ETOH cessation advised; DT precautions Follow up a 2g Na diet Pancytopenia: Chronic pancytopenia due to alcohol abuse, cirrhosis and history of RYGB Platelet 53, WBC 1.02 No fever or sign of infection at this time DVT prophylaxi on SCD for now
[2021-03-13] MEDS ORDERED: cefTRIAXone SODIUM 1,000 MG in DEXTROSE 5% 50 ML IV SCH (01:00)
[2021-03-13] MEDS: ALBUMIN 25% 12.5 GM/50 ML VIAL IV SCH ×2 (01:01→05:34)
[2021-03-13] MEDS: oxyCODONE HCL IR 5 MG TAB (IMMEDIATE RELEASE) PO PRN ×4 (04:14→21:35)
[2021-03-13] MEDS: LORazepam 1 MG/2 ML VIAL IV PRN ×2 (04:15→15:16)
[2021-03-13 07:04] LABS: Hematocrit (blood only) 31.2 % (37-47); Hemoglobin 10.1 g/dL (12.0-16.0); Mean Corpuscular Hemoglobin 30.6 pg (25-34); Mean Corpuscular Hgb Conc 32.4 g/dL (32-36); Mean Corpuscular Volume 94.5 fL (80-100); RDW Coefficient of Variation 21.2 % (11.5-14.5); RDW Standard Deviation 74.1 fL (36.4-46.3); White Blood Count 1.13 K/uL (4.8-10.8)
[2021-03-13 07:08] LABS: Mean Platelet Volume 10.3 fL (7.4-10.4); Platelet Count 45 K/uL (130-400)
[2021-03-13 07:24] LABS: Albumin Globulin Ratio 1.1 (0.9-2); Albumin Level 3.3 gm/dl (3.4-5.0); BUN Creatinine Ratio 16.2 (10-20); Bilirubin,Total 2.7 mg/dl (0.2-1.0); Calcium 7.8 mg/dl (8.5-10.1); Creatinine Clr Calc Pharmacy 144.9 ml/min; Est GFR (African American) 137.5 ml/min; Est GFR (Non-African American) 118.6 ml/min; Globulin 2.9 gm/dl (2.5-4.0); Potassium 2.8 mmol/L (3.5-5.1); Total Protein 6.2 gm/dl (6.0-8.3)
[2021-03-13 07:36] LABS: Anisocytosis Present; Basophils # (auto) 0.01 K/uL (0-0.2); Basophils % (auto) 0.9 %; Eosinophils # (auto) 0.03 K/uL (0-0.5); Eosinophils % (auto) 2.7 %; Lymphocytes # (auto) 0.34 K/uL (1.2-3.4); Lymphocytes % (auto) 30.1 %; Monocytes # (auto) 0.21 K/uL (0.11-0.59); Monocytes % (auto) 18.6 %; Neutrophils # (auto) 0.54 K/uL (1.4-6.5); Neutrophils % (auto) 47.7 %
[2021-03-13] MEDS ORDERED: POTASSIUM CHLORIDE CRTAB 20 MEQ TABCR PO STA (07:55)
[2021-03-13] MEDS: CITALOPRAM 20 MG TAB PO SCH (08:12)
[2021-03-13] MEDS: FOLIC ACID 1 MG TAB PO SCH (08:12)
[2021-03-13] MEDS: THIAMINE HCL 100 MG TAB PO SCH (08:14)
[2021-03-13] MEDS: LIDOCAINE 5% 1 PATCH TD SCH (08:14)
[2021-03-13] MEDS: SPIRONOLACTONE 100 MG TAB PO SCH (08:14)
[2021-03-13] MEDS: PANTOprazole 40 MG TAB PO SCH (08:14)
[2021-03-13] MEDS: GABAPENTIN 400 MG CAP PO SCH ×3 (08:14→21:34)
[2021-03-13] MEDS: VITAMIN B COMPLEX TAB PO SCH (08:15)
[2021-03-13] MEDS: PROMETHAZINE HCL 12.5 MG in SODIUM CHLORIDE 0.9% 50 ML IV PRN (08:57)
[2021-03-13] MEDS: POTASSIUM CHLORIDE / WTR 10 MEQ/100 ML PLCT IV SCH ×4 (10:23→23:56)
--- NOTE | 2021-03-13 10:36 | Gastroenterology Progress Note ---
Date of Service March 13, 2021 Assessment & Plan (1) Cirrhosis: (2) COVID-19: (3) Abdominal pain: (4) Abdominal ascites: (5) Alcoholism with alcohol dependence: Plan: Pt is a 56 yo female w ETOH cirrohosis, continued ETOH abuse, hx of variceal bleed s/p visceral angiography with left gastric artery branch embolization via right groin femoral artery access who is seen for ascites build up in abd and abd pain. She is COVID positive. MELD : 14 - US paracentesis w fluid analysis: Cell ct, protein, albumin, cx today. Will give Albumin repletion - Continue Ceftriaxone 2g IV for SBP coverage - Lasix 40mg + Spironolactone 100mg daily; monitor electrolytes and renal function - Strict ETOH cessation advised; DT precautions - 2g Na diet - COVID protocol/precautions Admission and Anticipated Discharge Date Admission Date: March 12, 2021 Supervising Physician Co-Signing Physician Notes I saw and evaluated the patient this afternoon. She is admitted with Covid pneumonia, we were consulted for evaluation of history of alcohol abuse, ascites and alcohol withdrawal. The patient appears to be tremulous this afternoon and asking for Ativan. The patient did have a paracentesis performed yesterday which showed no evidence of SBP. Recommendations continue antibiotic coverage while an inpatient as mentioned above, continue diuretics as mentioned above, low-sodium diet watch for continued problems with alcohol withdrawal. The patient has been counseled numerous times about the need to abstain from all alcohol consumption. Unfortunately she continues to drink. This may ultimately result in an untimely . The patient may benefit from alcohol treatment as an outpatient with a rehabilitation program. Please call with any questions or concerns. GI to sign off Subjective Pt still c/o diffuse abd tenderness but improved from yesterday. No seizures overnight. No n/v. Review of Systems Review of Systems: All systems reviewed & are unremarkable except as noted in HPI & below Physical Exam Constitutional: WD/WN, vitals as above + ill appearing and + disheveled Eyes: PERRL, conjunctivae normal, anicteric sclerae ENMT: external ear and nose normal, oropharynx normal Respiratory: Diminished lung sounds at bases only Cardiovascular: RRR, no murmur, no edema Gastrointestinal (Abdomen): Mild distension noted, BS hypoactive, TTP Skin: no rashes, warm and dry no jaundice Neurologic: Tremors, some slurry of speech Lymphatic: no lymphedema Results & Data ([facility]) Vital Signs (Past 12 Hours) Vital Signs Temp Pulse Resp BP Pulse Ox Pulse Ox 03/13/21 08:05 37.0 C 94 H 18 104/71 90 03/13/21 05:00 91 03/13/21 03:31 37.0 C 102 H 20 107/73 91 03/12/21 22:59 37.5 C 98 H 20 101/62 91 (1) Abdominal ascites Ascites type: due to alcoholic cirrhosis Qualified Code(s): K70.31 - Alcoholic cirrhosis of liver with ascites (2) Alcoholism with alcohol dependence Complication of substance-induced condition: uncomplicated Substance use status: in withdrawal Qualified Code(s): F10.230 - Alcohol dependence with withdrawal, uncomplicated (3) Cirrhosis Hepatic cirrhosis type: alcoholic cirrhosis (4) Abdominal pain Abdominal location: generalized Qualified Code(s): R10.84 - Generalized abdominal pain
[2021-03-13] MEDS: FUROSEMIDE 40 MG TAB PO SCH (10:52)
[2021-03-13] MEDS ORDERED: ALBUMIN 25% 100 mL 25 GM/100 ML VIAL IV ONE (11:00)
--- NOTE | 2021-03-13 12:25 | Ultrasound Report ---
ULTRASOUND GUIDED DIAGNOSTIC AND THERAPEUTIC PARACENTESIS CLINICAL HISTORY: Ascites. COMPARISON STUDY: CT of the abdomen and pelvis July or 03/08/2021. PROCEDURE: The risks, benefits, and alternatives to the procedure were discussed with the patient inc luding the risk of bleeding, infection and injury to adjacent structures. The patient agreed to the procedure and informed written consent was obtained. Following real-time ultrasound localization, the skin of the left lower quadrant was prepped and draped. Following local anesthesia with Xylocaine, t he sheath paracentesis needle was inserted and approximately 2.3 liters of straw-colored fluid was re moved by vacuum suction. No additional fluid could be withdrawn. Small amount of residual ascites was noted by ultrasound. The patient tolerated the procedure well and no immediate complications were evident. IMPRESSION: Ultrasound-guided paracentesis with removal of 2.3 liters of ascites. 1 L of ascites was sent to the laboratory for analysis as ordered. ACT 112: Negative or not required by law. Electronically signed by: Benedict Vaughn M.D. 03/13/2021 12:24 PM
[2021-03-13] MEDS: COLESTIPOL HCL 1 GM TAB PO SCH ×2 (12:26→21:35)
[2021-03-13 13:08] LABS: Total Protein Peritoneal Fluid 1.2 g/dl
[2021-03-13 13:18] LABS: Appearance Peritoneal Fluid CLEAR; Basophils, Fluid 0 %; Color Peritoneal Fluid YELLOW; Eosinophils, Fluid 0 %; Lymphocytes, Fluid 10 %; Mono,Macrophage,Mesothelial 70 %; Neutrophils, Fluid 20 %; RBC Peritoneal Fluid (A) < 3000 /uL; WBC Peritoneal Fluid (A) 86 /ul (0-300)
[2021-03-13] MEDS: cefTRIAXone SODIUM 2,000 MG in DEXTROSE 5% 50 ML IV SCH (15:23)
[2021-03-13] MEDS: rOPINIRole HCL 0.25 MG TABLET PO SCH (21:34)
[2021-03-13] MEDS: traZODone HCL 50 MG TAB PO PRN (21:34)
--- NOTE | 2021-03-13 23:13 | Hospitalist Progress Note ---
Date of Service March 13, 2021 Assessment & Plan (1) Abdominal ascites: Plan: Abdominal pain Elevated LFTs Cirrhosis Patient has history of alcohol abuse, cirrhosis complicated by esophageal varices and ascites. CT abd/pelvis showedIncreased ascites and redemonstration of cirrhotic and steatotic changes. GI on board Status post paracentesis done today where 2.3 L ascites fluid removed Peritoneal fluid showed no evidence of SBP. Ascites fluid culture pending Continue ceftriaxone 2g IV for SBP coverage as per GI Continue Lasix and spironolactone as per GI Strict ETOH cessation advised; DT precautions Follow up a 2g Na diet Chronic alcohol abuse Alcohol withdrawal Patient has a history of chronic alcoholism with multiple admissions for alcohol abuse and withdrawal. Continue alcohol withdrawal management protocol with gabapentin and ativan Continue thiamine and folate Counseling on alcohol cessation Continue monitor closely for DT Hypokalemia Mostly related to poor oral intake and nausea/vomiting Potassium 2.8 today Potassium replaced Continue monitor BMP COVID-19 positive Asymptomatic Does not meet criteria for dexamethasone or remdesivir since oxygen saturation above 94% on room air Continue monitor Pancytopenia: Thrombocytopenia Chronic pancytopenia due to alcohol abuse, cirrhosis and history of RYGB Platelet dropped to 45, WBC 1.13 No fever or sign of infection at this time Continue monitor CBC DVT prophylaxi on SCD due to thrombocytopenia CODE STATUS full code Disposition Will discharge once medically stable Admission and Anticipated Discharge Date Admission Date: March 12, 2021 Subjective Patient was seen and examined for follow-up of abdominal pain and alcohol abuse Lying in bed with no acute distress. She said that she continued to have abdominal pain associated with nausea. Nurse said she vomited the p.o. potassium She had paracentesis done today were 2.3 L ascites fluid removed Denies any chest pain, cough, palpitation and fever. Review of Systems Review of Systems: All systems reviewed & are unremarkable except as noted in Subjective Physical Exam Physical Exam: General- No acute distress Head- atraumatic Eyes- PERRL, EOMI, ENT- oropharynx clear Neck- supple, no JVD Lungs- clear to auscultation Heart- regular rhythm; no murmur Abdomen- +ascites, +abdominal pain Extremities- no calf tenderness Neuro- alert, oriented x 3; PERRL, EOMI; no facial palsy; no dysarthria, +tremors Skin- warm & dry Results & Data Results & Data ([facility]) Vital Signs (Past 12 Hours) Vital Signs Temp Pulse Pulse Resp BP BP Pulse Ox 03/13/21 18:45 36.9 C 90 18 122/61 93 03/13/21 16:00 88 03/13/21 15:47 36.9 C 84 18 116/78 92 03/13/21 14:41 37.1 C 94 H 18 113/76 92 03/13/21 12:28 36.7 C 88 18 111/76 96 (1) Abdominal ascites Ascites type: due to alcoholic cirrhosis Qualified Code(s): K70.31 - Alcoholic cirrhosis of liver with ascites
[2021-03-13] MEDS: LORazepam 2 MG/4 ML VIAL IV PRN (23:56)
[2021-03-14] MEDS: POTASSIUM CHLORIDE / WTR 10 MEQ/100 ML PLCT IV SCH ×3 (01:05→02:55)
[2021-03-14] MEDS: LORazepam 2 MG/4 ML VIAL IV PRN ×2 (02:43→20:02)
[2021-03-14] MEDS: oxyCODONE HCL IR 5 MG TAB (IMMEDIATE RELEASE) PO PRN ×3 (02:43→20:02)
[2021-03-14] MEDS ORDERED: POTASSIUM CHLORIDE 20 MEQ/15 ML UDC PO STA (05:29)
[2021-03-14 06:45] LABS: Mean Corpuscular Hgb Conc 31.6 g/dL (32-36)
[2021-03-14 06:54] LABS: Hematocrit (blood only) 33.2 % (37-47); Hemoglobin 10.5 g/dL (12.0-16.0); Mean Corpuscular Hemoglobin 30.3 pg (25-34); RDW Coefficient of Variation 21.3 % (11.5-14.5); RDW Standard Deviation 76.1 fL (36.4-46.3); Red Blood Count 3.46 M/uL (4.2-5.4); White Blood Count 1.14 K/uL (4.8-10.8)
[2021-03-14 07:16] LABS: Platelet Count 49 K/uL (130-400); Platelet Estimate SIGNIFIC DECREASED (Normal)
[2021-03-14 07:20] LABS: BUN Creatinine Ratio 15.2 (10-20); Calcium 7.7 mg/dl (8.5-10.1); Creatinine Clr Calc Pharmacy 162.4 ml/min; Est GFR (African American) 142.8 ml/min; Est GFR (Non-African American) 123.2 ml/min; Potassium 3.7 mmol/L (3.5-5.1)
[2021-03-14] MEDS: FUROSEMIDE 40 MG TAB PO SCH (08:50)
[2021-03-14] MEDS: FOLIC ACID 1 MG TAB PO SCH (08:50)
[2021-03-14] MEDS: CITALOPRAM 20 MG TAB PO SCH (08:50)
[2021-03-14] MEDS: GABAPENTIN 400 MG CAP PO SCH ×3 (08:52→20:01)
[2021-03-14] MEDS: LIDOCAINE 5% 1 PATCH TD SCH (08:52)
[2021-03-14] MEDS: PANTOprazole 40 MG TAB PO SCH (08:54)
[2021-03-14] MEDS: THIAMINE HCL 100 MG TAB PO SCH (08:55)
[2021-03-14] MEDS: SPIRONOLACTONE 100 MG TAB PO SCH (08:55)
[2021-03-14] MEDS: VITAMIN B COMPLEX TAB PO SCH (08:55)
[2021-03-14] MEDS: LORazepam 1 MG/2 ML VIAL IV PRN ×2 (09:12→16:45)
[2021-03-14] MEDS ORDERED: MICONAZOLE NITRATE POWDER 43 GM EXT PRN (09:47)
[2021-03-14] MEDS: COLESTIPOL HCL 1 GM TAB PO SCH ×2 (10:59→21:01)
[2021-03-14] MEDS: PANCREAZE (LIPASE 10,500U) CAP PO SCH ×3 (13:28→20:01)
[2021-03-14] MEDS: cefTRIAXone SODIUM 2,000 MG in DEXTROSE 5% 50 ML IV SCH (14:34)
[2021-03-14] MEDS: rOPINIRole HCL 0.25 MG TABLET PO SCH (20:01)
--- NOTE | 2021-03-14 23:47 | Hospitalist Progress Note ---
Date of Service March 14, 2021 Assessment & Plan (1) Abdominal ascites: Plan: Abdominal pain Elevated LFTs Cirrhosis Patient has history of alcohol abuse, cirrhosis complicated by esophageal varices and ascites. CT abd/pelvis showedIncreased ascites and redemonstration of cirrhotic and steatotic changes. GI on board Status post paracentesis done on 03/13/21 2 where 2.3 L ascites fluid removed Peritoneal fluid showed no evidence of SBP. Ascites fluid culture pending Continue ceftriaxone 2g IV for SBP coverage as per GI Continue Lasix and spironolactone as per GI Strict ETOH cessation advised; DT precautions Follow up a 2g Na diet Chronic alcohol abuse Alcohol withdrawal Patient has a history of chronic alcoholism with multiple admissions for alcohol abuse and withdrawal. Continue alcohol withdrawal management protocol with gabapentin and ativan Continue thiamine and folate Counseling on alcohol cessation Continue monitor closely for DT Hypokalemia Mostly related to poor oral intake and nausea/vomiting Potassium 3.7 today Continue monitor BMP COVID-19 positive Asymptomatic Does not meet criteria for dexamethasone or remdesivir since oxygen saturation above 94% on room air Continue monitor Pancytopenia: Thrombocytopenia Chronic pancytopenia due to alcohol abuse, cirrhosis and history of RYGB Platelet dropped to 45, WBC 1.13 No fever or sign of infection at this time Continue monitor CBC DVT prophylaxi on SCD due to thrombocytopenia CODE STATUS full code Disposition Will discharge once medically stable Admission and Anticipated Discharge Date Admission Date: March 12, 2021 Subjective Patient was seen and examined for follow-up of abdominal pain and alcohol abuse Lying in bed with no acute distress. She looks a little bit awake today, but on and off closed her eyes during the encounter She has not vomited today Denies any chest pain, cough, palpitation and fever. Review of Systems Review of Systems: All systems reviewed & are unremarkable except as noted in Subjective Physical Exam Physical Exam: General- No acute distress Head- atraumatic Eyes- PERRL, EOMI, ENT- oropharynx clear Neck- supple, no JVD Lungs- clear to auscultation Heart- regular rhythm; no murmur Abdomen- +ascites, +abdominal pain Extremities- no calf tenderness Neuro- alert, oriented x 3; PERRL, EOMI; no facial palsy; no dysarthria, +tremors Skin- warm & dry Results & Data Results & Data ([facility]) Vital Signs (Past 12 Hours) Vital Signs Temp Pulse Pulse Resp BP BP Pulse Ox 03/14/21 22:54 37.0 C 82 18 121/81 92 03/14/21 19:41 37.4 C 98 H 18 117/78 95 03/14/21 16:36 36.7 C 94 H 16 103/68 95 03/14/21 15:31 37.0 C 91 H 20 103/66 92 03/14/21 15:19 93 H (1) Abdominal ascites Ascites type: due to alcoholic cirrhosis Qualified Code(s): K70.31 - Alcoholic cirrhosis of liver with ascites
[2021-03-15] MEDS: LORazepam 2 MG/4 ML VIAL IV PRN ×2 (00:52→04:09)
[2021-03-15] MEDS: oxyCODONE HCL IR 5 MG TAB (IMMEDIATE RELEASE) PO PRN ×2 (04:09→09:03)
[2021-03-15 08:52] LABS: Hematocrit (blood only) 31.6 % (37-47); Hemoglobin 9.7 g/dL (12.0-16.0); Mean Corpuscular Hemoglobin 29.9 pg (25-34); Mean Corpuscular Hgb Conc 30.7 g/dL (32-36); Mean Corpuscular Volume 97.5 fL (80-100); Platelet Count 43 K/uL (130-400); RDW Coefficient of Variation 21.1 % (11.5-14.5); Red Blood Count 3.24 M/uL (4.2-5.4); White Blood Count 0.93 K/uL (4.8-10.8)
[2021-03-15 08:53] LABS: Platelet Estimate Decreased (Normal)
[2021-03-15] MEDS: CITALOPRAM 20 MG TAB PO SCH (08:57)
[2021-03-15] MEDS: FUROSEMIDE 40 MG TAB PO SCH (08:57)
[2021-03-15] MEDS: GABAPENTIN 400 MG CAP PO SCH ×4 (08:58→22:19)
[2021-03-15] MEDS: PANTOprazole 40 MG TAB PO SCH (08:59)
[2021-03-15] MEDS: SPIRONOLACTONE 100 MG TAB PO SCH (08:59)
[2021-03-15] MEDS: THIAMINE HCL 100 MG TAB PO SCH (08:59)
[2021-03-15] MEDS: VITAMIN B COMPLEX TAB PO SCH (09:00)
[2021-03-15] MEDS: LIDOCAINE 5% 1 PATCH TD SCH (09:00)
[2021-03-15] MEDS: FOLIC ACID 1 MG TAB PO SCH (09:00)
[2021-03-15] MEDS: PANCREAZE (LIPASE 10,500U) CAP PO SCH ×4 (09:00→22:16)
[2021-03-15] MEDS: LORazepam 1 MG/2 ML VIAL IV PRN (09:04)
[2021-03-15 09:21] LABS: BUN Creatinine Ratio 15.2 (10-20); Calcium 7.8 mg/dl (8.5-10.1); Creatinine Clr Calc Pharmacy 162.4 ml/min; Est GFR (African American) 142.8 ml/min; Est GFR (Non-African American) 123.2 ml/min; Potassium 3.4 mmol/L (3.5-5.1)
[2021-03-15] MEDS ORDERED: POTASSIUM CHLORIDE CRTAB 20 MEQ TABCR PO STA (10:15)
[2021-03-15] MEDS: PROMETHAZINE HCL 12.5 MG in SODIUM CHLORIDE 0.9% 50 ML IV PRN (11:19)
[2021-03-15] MEDS: COLESTIPOL HCL 1 GM TAB PO SCH ×2 (11:23→23:27)
[2021-03-15] MEDS: cefTRIAXone SODIUM 2,000 MG in DEXTROSE 5% 50 ML IV SCH (14:13)
[2021-03-15] MEDS: rOPINIRole HCL 0.25 MG TABLET PO SCH ×2 (22:15→22:17)
--- NOTE | 2021-03-15 23:56 | Hospitalist Progress Note ---
Date of Service March 15, 2021 Assessment & Plan (1) Abdominal ascites: Plan: Abdominal pain Elevated LFTs Cirrhosis Patient has history of alcohol abuse, cirrhosis complicated by esophageal varices and ascites. CT abd/pelvis showedIncreased ascites and redemonstration of cirrhotic and steatotic changes. GI on board Status post paracentesis done on 03/13/21 2 where 2.3 L ascites fluid removed Peritoneal fluid showed no evidence of SBP. Ascites fluid culture pending Continue ceftriaxone 2g IV for SBP coverage as per GI Continue Lasix and spironolactone as per GI Strict ETOH cessation advised; DT precautions Follow up a 2g Na diet Chronic alcohol abuse Alcohol withdrawal Patient has a history of chronic alcoholism with multiple admissions for alcohol abuse and withdrawal. Continue alcohol withdrawal management protocol with gabapentin and ativan Continue thiamine and folate Counseling on alcohol cessation Continue monitor closely for DT Hypokalemia Mostly related to poor oral intake and nausea/vomiting Potassium 3.4 today K replaced Continue monitor BMP COVID-19 positive Asymptomatic Does not meet criteria for dexamethasone or remdesivir since oxygen saturation above 94% on room air Continue monitor Pancytopenia: Thrombocytopenia Chronic pancytopenia due to alcohol abuse, cirrhosis and history of RYGB Platelet dropped to 43, WBC 0.93 No fever or sign of infection at this time Continue monitor CBC DVT prophylaxis on SCD due to thrombocytopenia CODE STATUS full code Disposition Will discharge once medically stable Admission and Anticipated Discharge Date Admission Date: March 12, 2021 Subjective Patient was seen and examined for follow-up of abdominal pain and alcohol abuse Lying in bed with no acute distress. She looks very drowsy and lethargy She barely able to keep her eyes open Denies any chest pain, cough, palpitation and fever. Review of Systems Review of Systems: All systems reviewed & are unremarkable except as noted in Subjective Physical Exam Physical Exam: General- No acute distress Head- atraumatic Eyes- PERRL, EOMI, ENT- oropharynx clear Neck- supple, no JVD Lungs- clear to auscultation Heart- regular rhythm; no murmur Abdomen- +ascites, +abdominal pain Extremities- no calf tenderness Neuro- alert, PERRL, EOMI; no facial palsy; no dysarthria, +tremors Skin- warm & dry Results & Data Results & Data ([facility]) Vital Signs (Past 12 Hours) Vital Signs Temp Pulse Pulse Resp BP Pulse Ox 03/15/21 23:07 36.9 C 88 14 98/62 L 92 03/15/21 16:00 97 H 03/15/21 14:17 37 C 93 H 18 115/78 90 03/15/21 12:25 36.9 C 85 20 87/61 L 92 (1) Abdominal ascites Ascites type: due to alcoholic cirrhosis Qualified Code(s): K70.31 - Alcoholic cirrhosis of liver with ascites
[2021-03-16] MEDS: oxyCODONE HCL IR 5 MG TAB (IMMEDIATE RELEASE) PO PRN (04:47)
[2021-03-16 09:01] LABS: Hematocrit (blood only) 31.1 % (37-47); Hemoglobin 9.8 g/dL (12.0-16.0); Mean Corpuscular Hemoglobin 30.5 pg (25-34); Mean Corpuscular Hgb Conc 31.5 g/dL (32-36); Mean Corpuscular Volume 96.9 fL (80-100); RDW Coefficient of Variation 21.2 % (11.5-14.5); RDW Standard Deviation 76.8 fL (36.4-46.3); Red Blood Count 3.21 M/uL (4.2-5.4); White Blood Count 1.11 K/uL (4.8-10.8)
[2021-03-16 09:25] LABS: BUN Creatinine Ratio 17.5 (10-20); Calcium 7.8 mg/dl (8.5-10.1); Est GFR (Non-African American) 115.6 ml/min; Potassium 3.4 mmol/L (3.5-5.1)
[2021-03-16] MEDS: traZODone HCL 50 MG TAB PO PRN (09:31)
[2021-03-16] MEDS: FUROSEMIDE 40 MG TAB PO SCH (09:31)
[2021-03-16] MEDS: LIDOCAINE 5% 1 PATCH TD SCH (09:32)
[2021-03-16] MEDS: SPIRONOLACTONE 100 MG TAB PO SCH (09:33)
[2021-03-16] MEDS: PANTOprazole 40 MG TAB PO SCH (09:33)
[2021-03-16] MEDS: THIAMINE HCL 100 MG TAB PO SCH (09:33)
[2021-03-16] MEDS: VITAMIN B COMPLEX TAB PO SCH (09:33)
[2021-03-16] MEDS: PANCREAZE (LIPASE 10,500U) CAP PO SCH ×4 (09:33→20:24)
[2021-03-16] MEDS: GABAPENTIN 400 MG CAP PO SCH ×3 (09:33→20:24)
[2021-03-16] MEDS: FOLIC ACID 1 MG TAB PO SCH (09:33)
[2021-03-16] MEDS: CITALOPRAM 20 MG TAB PO SCH (09:33)
[2021-03-16 09:36] LABS: Mean Platelet Volume 10.5 fL (7.4-10.4); Platelet Count 49 K/uL (130-400)
[2021-03-16] MEDS: COLESTIPOL HCL 1 GM TAB PO SCH ×2 (11:06→22:11)
[2021-03-16] MEDS: cefTRIAXone SODIUM 2,000 MG in DEXTROSE 5% 50 ML IV SCH (13:44)
[2021-03-16] MEDS: rOPINIRole HCL 0.25 MG TABLET PO SCH (22:11)
--- NOTE | 2021-03-16 23:42 | Hospitalist Progress Note ---
Date of Service March 16, 2021 Assessment & Plan (1) Abdominal ascites: Plan: Abdominal pain Elevated LFTs Cirrhosis Patient has history of alcohol abuse, cirrhosis complicated by esophageal varices and ascites. CT abd/pelvis showedIncreased ascites and redemonstration of cirrhotic and steatotic changes. GI on board Status post paracentesis done on 03/13/21 2 where 2.3 L ascites fluid removed Peritoneal fluid showed no evidence of SBP. Ascites fluid culture pending Continue ceftriaxone 2g IV for SBP coverage as per GI Continue Lasix and spironolactone as per GI Strict ETOH cessation advised; DT precautions Follow up a 2g Na diet Chronic alcohol abuse Alcohol withdrawal Patient has a history of chronic alcoholism with multiple admissions for alcohol abuse and withdrawal. Continue alcohol withdrawal management protocol with gabapentin and ativan Continue thiamine and folate Counseling on alcohol cessation Continue monitor closely for DT Hypokalemia Mostly related to poor oral intake and nausea/vomiting Potassium 3.4 today K replaced Continue monitor BMP COVID-19 positive Asymptomatic Does not meet criteria for dexamethasone or remdesivir since oxygen saturation above 94% on room air Continue monitor Pancytopenia: Thrombocytopenia Chronic pancytopenia due to alcohol abuse, cirrhosis and history of RYGB Platelet dropped to 49, WBC 1.11 No fever or sign of infection at this time Continue monitor CBC DVT prophylaxis on SCD due to thrombocytopenia CODE STATUS full code Disposition Will discharge once medically stable Admission and Anticipated Discharge Date Admission Date: March 12, 2021 Subjective Patient was seen and examined for follow-up of abdominal pain and alcohol abuse Lying in bed with no acute distress. She looks drowsy and lethargy Denies any chest pain, cough, palpitation and fever. Review of Systems Review of Systems: All systems reviewed & are unremarkable except as noted in Subjective Physical Exam Physical Exam: General- No acute distress Head- atraumatic Eyes- PERRL, EOMI, ENT- oropharynx clear Neck- supple, no JVD Lungs- clear to auscultation Heart- regular rhythm; no murmur Abdomen- +ascites, +abdominal pain Extremities- no calf tenderness Neuro- alert, PERRL, EOMI; no facial palsy; no dysarthria, +tremors Skin- warm & dry Results & Data Results & Data ([facility]) Vital Signs (Past 12 Hours) Vital Signs Temp Pulse Resp BP BP Pulse Ox 03/16/21 23:24 36.9 C 83 16 93/59 L 92 03/16/21 18:36 36.7 C 84 20 105/74 90 03/16/21 15:36 75/43 L 79/44 L 03/16/21 15:24 37.1 C 80 18 96 (1) Abdominal ascites Ascites type: due to alcoholic cirrhosis Qualified Code(s): K70.31 - Alcoholic cirrhosis of liver with ascites
[2021-03-16] MEDS ORDERED: POTASSIUM CHLORIDE 10 MEQ TABCR PO STA (23:43)
[2021-03-17] MEDS: oxyCODONE HCL IR 5 MG TAB (IMMEDIATE RELEASE) PO PRN ×2 (06:09→11:51)
[2021-03-17 07:38] LABS: BUN Creatinine Ratio 23.1 (10-20); Calcium 7.7 mg/dl (8.5-10.1); Creatinine Clr Calc Pharmacy 137.4 ml/min; Est GFR (African American) 135.1 ml/min; Est GFR (Non-African American) 116.6 ml/min; Potassium 3.4 mmol/L (3.5-5.1)
[2021-03-17 07:39] LABS: Hemoglobin 9.9 g/dL (12.0-16.0); Mean Corpuscular Hemoglobin 30.6 pg (25-34); Mean Corpuscular Hgb Conc 31.9 g/dL (32-36); Mean Corpuscular Volume 95.7 fL (80-100); Mean Platelet Volume 12.1 fL (7.4-10.4); Platelet Count 60 K/uL (130-400); RDW Coefficient of Variation 20.6 % (11.5-14.5); RDW Standard Deviation 73.8 fL (36.4-46.3); Red Blood Count 3.24 M/uL (4.2-5.4); White Blood Count 1.08 K/uL (4.8-10.8)
[2021-03-17] MEDS ORDERED: POTASSIUM CHLORIDE CRTAB 20 MEQ TABCR PO STA (07:53)
[2021-03-17] MEDS: COLESTIPOL HCL 1 GM TAB PO SCH ×2 (09:03→20:56)
[2021-03-17] MEDS: FUROSEMIDE 40 MG TAB PO SCH (09:05)
[2021-03-17] MEDS: THIAMINE HCL 100 MG TAB PO SCH (09:06)
[2021-03-17] MEDS: FOLIC ACID 1 MG TAB PO SCH (09:07)
[2021-03-17] MEDS: PANCREAZE (LIPASE 10,500U) CAP PO SCH ×4 (09:07→20:56)
[2021-03-17] MEDS: VITAMIN B COMPLEX TAB PO SCH (09:07)
[2021-03-17] MEDS: SPIRONOLACTONE 100 MG TAB PO SCH (09:08)
[2021-03-17] MEDS: PANTOprazole 40 MG TAB PO SCH (09:08)
[2021-03-17] MEDS: GABAPENTIN 400 MG CAP PO SCH ×3 (09:08→20:56)
[2021-03-17] MEDS: CITALOPRAM 20 MG TAB PO SCH (09:09)
[2021-03-17] MEDS: LIDOCAINE 5% 1 PATCH TD SCH (09:10)
[2021-03-17] MEDS: cefTRIAXone SODIUM 2,000 MG in DEXTROSE 5% 50 ML IV SCH (12:09)
--- NOTE | 2021-03-17 20:31 | Hospitalist Progress Note ---
Date of Service March 17, 2021 Assessment & Plan (1) Abdominal ascites: Plan: Abdominal pain Elevated LFTs Cirrhosis Patient has history of alcohol abuse, cirrhosis complicated by esophageal varices and ascites. CT abd/pelvis showedIncreased ascites and redemonstration of cirrhotic and steatotic changes. GI on board Status post paracentesis done on 03/13/21 2 where 2.3 L ascites fluid removed Peritoneal fluid showed no evidence of SBP. Ascites fluid culture pending Continue ceftriaxone 2g IV for SBP coverage as per GI, will complete 7-10 days course abx Continue Lasix and spironolactone as per GI Strict ETOH cessation advised; DT precautions Follow up a 2g Na diet Chronic alcohol abuse Alcohol withdrawal Pt last drink was the night of 03/11/20 Patient has a history of chronic alcoholism with multiple admissions for alcohol abuse and withdrawal. Continue gabapentin home dose, will discontinue Ativan Continue thiamine and folate Counseling on alcohol cessation Refused inpatient Alcohol rehab Continue monitor closely for DT Hypokalemia Mostly related to poor oral intake and nausea/vomiting Potassium 3.4 today K replaced Continue monitor BMP COVID-19 positive Asymptomatic Does not meet criteria for dexamethasone or remdesivir since oxygen saturation above 94% on room air Continue monitor Pancytopenia: Thrombocytopenia Chronic pancytopenia due to alcohol abuse, cirrhosis and history of RYGB Platelet dropped to 60, WBC 1.08 No fever or sign of infection at this time No active sign of bleeding Continue monitor CBC DVT prophylaxis on SCD due to thrombocytopenia CODE STATUS full code Disposition Will discharge home 1-2 days Admission and Anticipated Discharge Date Admission Date: March 12, 2021 Subjective Patient was seen and examined for follow-up of abdominal pain and alcohol abuse Lying in bed with no acute distress. She looks more awake today Denies any chest pain, cough, palpitation and fever. Review of Systems Review of Systems: All systems reviewed & are unremarkable except as noted in Subjective Physical Exam Physical Exam: General- No acute distress Head- atraumatic Eyes- PERRL, EOMI, ENT- oropharynx clear Neck- supple, no JVD Lungs- clear to auscultation Heart- regular rhythm; no murmur Abdomen- +ascites, +abdominal pain Extremities- no calf tenderness Neuro- alert, PERRL, EOMI; no facial palsy; no dysarthria, +tremors Skin- warm & dry Results & Data Results & Data ([facility]) Vital Signs (Past 12 Hours) Vital Signs Temp Pulse Pulse Resp BP Pulse Ox 03/17/21 19:29 37 C 73 18 91/51 L 92 03/17/21 15:20 36.9 C 67 20 93/60 L 92 03/17/21 15:07 72 03/17/21 10:43 37.0 C 80 18 90/54 L 92 (1) Abdominal ascites Ascites type: due to alcoholic cirrhosis Qualified Code(s): K70.31 - Alcoholic cirrhosis of liver with ascites
[2021-03-17] MEDS: rOPINIRole HCL 0.25 MG TABLET PO SCH (20:56)
[2021-03-18] MEDS: oxyCODONE HCL IR 5 MG TAB (IMMEDIATE RELEASE) PO PRN ×5 (00:26→22:29)
[2021-03-18 07:03] LABS: Hematocrit (blood only) 29.9 % (37-47); Hemoglobin 9.3 g/dL (12.0-16.0); Mean Corpuscular Hemoglobin 30.3 pg (25-34); Mean Corpuscular Hgb Conc 31.1 g/dL (32-36); Mean Corpuscular Volume 97.4 fL (80-100); RDW Coefficient of Variation 20.4 % (11.5-14.5); RDW Standard Deviation 74.4 fL (36.4-46.3); Red Blood Count 3.07 M/uL (4.2-5.4); White Blood Count 1.04 K/uL (4.8-10.8)
[2021-03-18 07:26] LABS: BUN Creatinine Ratio 21.6 (10-20); Calcium 7.7 mg/dl (8.5-10.1); Creatinine Clr Calc Pharmacy 144.9 ml/min; Est GFR (African American) 137.5 ml/min; Est GFR (Non-African American) 118.6 ml/min; Potassium 3.5 mmol/L (3.5-5.1)
[2021-03-18 07:39] LABS: Mean Platelet Volume 10.1 fL (7.4-10.4); Platelet Count 50 K/uL (130-400); Platelet Estimate Decreased (Normal)
[2021-03-18] MEDS: COLESTIPOL HCL 1 GM TAB PO SCH ×2 (09:23→20:58)
[2021-03-18] MEDS: CITALOPRAM 20 MG TAB PO SCH (09:25)
[2021-03-18] MEDS: FOLIC ACID 1 MG TAB PO SCH (09:25)
[2021-03-18] MEDS: VITAMIN B COMPLEX TAB PO SCH (09:25)
[2021-03-18] MEDS: THIAMINE HCL 100 MG TAB PO SCH (09:26)
[2021-03-18] MEDS: SPIRONOLACTONE 100 MG TAB PO SCH (09:26)
[2021-03-18] MEDS: GABAPENTIN 400 MG CAP PO SCH ×3 (09:27→20:58)
[2021-03-18] MEDS: PANTOprazole 40 MG TAB PO SCH (09:27)
[2021-03-18] MEDS: PANCREAZE (LIPASE 10,500U) CAP PO SCH ×4 (09:27→20:58)
[2021-03-18] MEDS: FUROSEMIDE 40 MG TAB PO SCH (09:28)
[2021-03-18] MEDS: LIDOCAINE 5% 1 PATCH TD SCH (09:28)
--- NOTE | 2021-03-18 10:50 | XRay Report ---
XR chest 1V portable CLINICAL HISTORY: covid 19 infection, evaluate for pneumonia. COMPARISON STUDY: 03/12/2021 TECHNIQUE: 1 view of the chest FINDINGS: Single frontal view of the chest demonstrates the cardiomediastinal silhouette to be within normal li mits. There is again asymmetric elevation of the right hemidiaphragm. The lungs are clear of alveolar opacities. There is no evidence for pleural effusion. There is no evidence for vascular congestion. There is no acute osseous pathology. IMPRESSION: No acute cardiopulmonary disease. There is no significant interval change. ACT 112: Negative or not required by law. Electronically signed by: Talon Soares M.D. 03/18/2021 10:48 AM
[2021-03-18] MEDS: cefTRIAXone SODIUM 2,000 MG in DEXTROSE 5% 50 ML IV SCH (12:40)
[2021-03-18] MEDS ORDERED: SODIUM CHLORIDE 0.9% 1000ML 500 ML IV ONE (15:18)
--- NOTE | 2021-03-18 16:35 | Hospitalist Progress Note ---
Date of Service March 18, 2021 Assessment & Plan (1) Abdominal ascites: Plan: Abdominal pain Elevated LFTs Cirrhosis Patient has history of alcohol abuse, cirrhosis complicated by esophageal varices and ascites. CT abd/pelvis showedIncreased ascites and redemonstration of cirrhotic and steatotic changes. GI on board Status post paracentesis done on 03/13/21 2 where 2.3 L ascites fluid removed Peritoneal fluid showed no evidence of SBP. Ascites fluid culture pending Continue ceftriaxone 2g IV for SBP coverage as per GI, will complete 7-10 days course abx Continue Lasix and spironolactone as per GI Strict ETOH cessation advised; DT precautions Follow up a 2g Na diet 03/18/21 abdomen nondistended BP on the lower side systolic 80s NSS 500cc bolus given Midodrine 2.5mg TID started monitor closely will discuss with GI Chronic alcohol abuse Alcohol withdrawal Pt last drink was the night of 03/11/20 Patient has a history of chronic alcoholism with multiple admissions for alcohol abuse and withdrawal. Continue gabapentin home dose, will discontinue Ativan Continue thiamine and folate Counseling on alcohol cessation Refused inpatient Alcohol rehab Continue monitor closely for DT 03/18/21 no signs/symptoms of alcohol withdrawal Hypokalemia Mostly related to poor oral intake and nausea/vomiting Potassium 3.5 Continue monitor BMP COVID-19 Infection Asymptomatic Does not meet criteria for dexamethasone or remdesivir since oxygen saturation above 94% on room air Continue monitor 03/18/21 remains 93% on room air CXR no signs of pneumonia continue to monitor Pancytopenia: Thrombocytopenia Chronic pancytopenia due to alcohol abuse, cirrhosis and history of RYGB Platelet dropped to 60, WBC 1.08 No fever or sign of infection at this time No active sign of bleeding Continue monitor CBC 03/18/21 stable overall no signs of bleeding continue to monitor DVT prophylaxis on SCD due to thrombocytopenia CODE STATUS full code Disposition pending Admission and Anticipated Discharge Date Admission Date: March 12, 2021 Subjective ff up for covid 19, alcoholic cirrhosis, etc seen resting in bed, comfortable BP systolic 80s has some dizziness no chest pain, dyspnea, palpitations breathing is fine no cough, fever/chills no abdominal pain, nausea/vomiting no other symptoms Review of Systems Review of Systems: all noted and negative except for above Physical Exam Physical Exam: General- oriented x 3, not in distress, speaks in sentences with no effort or accessory muscle use Head- atraumatic Eyes- PERRL, EOMI, anicteric ENT- oropharynx clear Neck- supple, no JVD, no adenopathy, no thyromegaly; carotids +2/2, no bruits appreciated Lungs- clear to auscultation bilaterally, no rales/wheezes Heart- normal rate, regular rhythm; no murmur, no gallop, no rub appreciated Abdomen- normal bowel sounds, non-distended, soft, nontender, no masses or hepatosplenomegaly Extremities- no pretibial edema, no calf tenderness; peripheral pulses intact Neuro- alert, oriented x 3; CN 2-12 grossly intact; motor 5/5 bilaterally;sensation 100% on all extremities; no other gross focal neurologic deficits Skin- warm & dry Results & Data Results & Data ([facility]) Vital Signs (Past 12 Hours) Vital Signs Temp Pulse Resp BP BP Pulse Ox 03/18/21 16:23 95/64 L 03/18/21 15:14 82/46 L 03/18/21 15:07 37.2 C 76 20 83/48 L 93 03/18/21 07:21 37.3 C 71 18 87/48 L 93 all noted and reviewed including below (1) Abdominal ascites Ascites type: due to alcoholic cirrhosis Qualified Code(s): K70.31 - Alcoholic cirrhosis of liver with ascites
[2021-03-18] MEDS: MIDODRINE HCL 2.5 MG TAB PO SCH (17:25)
[2021-03-18] MEDS: rOPINIRole HCL 0.25 MG TABLET PO SCH (20:58)
[2021-03-19] MEDS ORDERED: SODIUM CHLORIDE 0.9% 500 ML IV SCH (03:15)
[2021-03-19] MEDS: oxyCODONE HCL IR 5 MG TAB (IMMEDIATE RELEASE) PO PRN ×2 (05:01→15:08)
[2021-03-19] MEDS: MIDODRINE HCL 2.5 MG TAB PO SCH ×3 (07:43→16:12)
[2021-03-19] MEDS: LIDOCAINE 5% 1 PATCH TD SCH (08:32)
[2021-03-19] MEDS: THIAMINE HCL 100 MG TAB PO SCH (08:34)
[2021-03-19] MEDS: GABAPENTIN 400 MG CAP PO SCH ×3 (08:35→21:03)
[2021-03-19] MEDS: PANCREAZE (LIPASE 10,500U) CAP PO SCH ×4 (08:35→21:03)
[2021-03-19] MEDS: PANTOprazole 40 MG TAB PO SCH (08:36)
[2021-03-19] MEDS: VITAMIN B COMPLEX TAB PO SCH (08:38)
[2021-03-19] MEDS: CITALOPRAM 20 MG TAB PO SCH (08:38)
[2021-03-19] MEDS: SPIRONOLACTONE 100 MG TAB PO SCH (08:39)
[2021-03-19] MEDS: FOLIC ACID 1 MG TAB PO SCH (08:39)
[2021-03-19] MEDS: FUROSEMIDE 40 MG TAB PO SCH (08:39)
[2021-03-19] MEDS: COLESTIPOL HCL 1 GM TAB PO SCH ×2 (10:21→21:03)
[2021-03-19] MEDS: PROMETHAZINE HCL 12.5 MG in SODIUM CHLORIDE 0.9% 50 ML IV PRN (14:15)
[2021-03-19] MEDS: cefTRIAXone SODIUM 2,000 MG in DEXTROSE 5% 50 ML IV SCH (14:32)
[2021-03-19] MEDS ORDERED: LORazepam 0.5 MG TAB PO PRN (16:04)
--- NOTE | 2021-03-19 16:20 | Hospitalist Progress Note ---
Date of Service March 19, 2021 Assessment & Plan (1) Abdominal ascites: Plan: Abdominal pain Elevated LFTs Cirrhosis Patient has history of alcohol abuse, cirrhosis complicated by esophageal varices and ascites. CT abd/pelvis showedIncreased ascites and redemonstration of cirrhotic and steatotic changes. GI on board Status post paracentesis done on 03/13/21 2 where 2.3 L ascites fluid removed Peritoneal fluid showed no evidence of SBP. Ascites fluid culture pending Continue ceftriaxone 2g IV for SBP coverage as per GI, will complete 7-10 days course abx Continue Lasix and spironolactone as per GI Strict ETOH cessation advised; DT precautions Follow up a 2g Na diet 03/19/21 abdomen nondistended Midodrine 2.5mg TID started --> BP improving hold diuretics for now, monitor BP for now monitor closely discussed with GI Chronic alcohol abuse Alcohol withdrawal Pt last drink was the night of 03/11/20 Patient has a history of chronic alcoholism with multiple admissions for alcohol abuse and withdrawal. Continue gabapentin home dose, will discontinue Ativan Continue thiamine and folate Counseling on alcohol cessation Refused inpatient Alcohol rehab Continue monitor closely for DT 03/19/21 no signs/symptoms of alcohol withdrawal Hypokalemia Mostly related to poor oral intake and nausea/vomiting Potassium 3.5 Continue monitor BMP COVID-19 Infection Asymptomatic Does not meet criteria for dexamethasone or remdesivir since oxygen saturation above 94% on room air Continue monitor 03/19/21 remains 93% on room air CXR no signs of pneumonia continue to monitor Pancytopenia: Thrombocytopenia Chronic pancytopenia due to alcohol abuse, cirrhosis and history of RYGB Platelet dropped to 60, WBC 1.08 No fever or sign of infection at this time No active sign of bleeding Continue monitor CBC 03/18/21 stable overall no signs of bleeding continue to monitor DVT prophylaxis on SCD due to thrombocytopenia CODE STATUS full code Disposition pending anticipate d/c home with home health services in 1-2 days Admission and Anticipated Discharge Date Admission Date: March 12, 2021 Subjective ff up for alcoholic liver cirrhosis, COVID 19 infection, etc seen resting in bed, not in distress states she felt less dizzy with PT/OT today reports some nausea had some diarrhea this AM, resolved states she has anxiety today, due to recent deaths in the family- requesting something to help with her anxiety no dyspnea, cough, chest pain, leg pain no other symptoms Review of Systems Review of Systems: all noted and negative except for above Physical Exam Physical Exam: General- oriented x 3, not in distress, speaks in sentences with no effort or accessory muscle use Eyes- anicteric Neck- no JVD Lungs- clear BS BL Heart- normal rate, regular rhythm; no murmurs Abdomen- normal bowel sounds, nondistended, soft, nontender Extremities- no pretibial edema, no calf tenderness Neuro- alert, oriented x 3; no gross focal neurologic deficits Skin- warm & dry Results & Data Results & Data ([facility]) Vital Signs (Past 12 Hours) Vital Signs Temp Pulse Pulse Resp BP Pulse Ox 03/19/21 14:53 37.5 C 75 16 98/64 L 93 03/19/21 14:19 70 03/19/21 11:50 37.0 C 69 16 93/62 L 93 03/19/21 07:56 65 03/19/21 06:38 37.1 C 64 18 90/54 L 92 all noted and reviewed including below (1) Abdominal ascites Ascites type: due to alcoholic cirrhosis Qualified Code(s): K70.31 - Alcoholic cirrhosis of liver with ascites
[2021-03-19] MEDS: rOPINIRole HCL 0.25 MG TABLET PO SCH (21:03)
[2021-03-19] MEDS: ACETAMINOPHEN 325 MG TAB PO PRN (21:08)
[2021-03-20] MEDS: LOPERAMIDE HCL 2 MG CAP PO PRN ×2 (03:32→08:17)
[2021-03-20 05:58] LABS: Mean Corpuscular Hgb Conc 31.3 g/dL (32-36)
[2021-03-20 06:20] LABS: Mean Corpuscular Hemoglobin 30.4 pg (25-34); Mean Corpuscular Volume 97.3 fL (80-100); RDW Coefficient of Variation 19.6 % (11.5-14.5); Red Blood Count 3.29 M/uL (4.2-5.4); White Blood Count 1.07 K/uL (4.8-10.8)
[2021-03-20 06:34] LABS: BUN Creatinine Ratio 26.7 (10-20); Calcium 7.8 mg/dl (8.5-10.1); Creatinine Clr Calc Pharmacy 178.7 ml/min; Est GFR (African American) 147.3 ml/min; Est GFR (Non-African American) 127.1 ml/min; Potassium 4.1 mmol/L (3.5-5.1)
[2021-03-20 06:36] LABS: Platelet Count 63 K/uL (130-400)
[2021-03-20 06:37] LABS: Basophils # (auto) 0.01 K/uL (0-0.2); Basophils % (auto) 0.9 %; Eosinophils # (auto) 0.03 K/uL (0-0.5); Eosinophils % (auto) 2.8 %; Lymphocytes # (auto) 0.36 K/uL (1.2-3.4); Lymphocytes % (auto) 33.6 %; Monocytes # (auto) 0.33 K/uL (0.11-0.59); Monocytes % (auto) 30.8 %; Neutrophils # (auto) 0.34 K/uL (1.4-6.5); Neutrophils % (auto) 31.9 %; Platelet Estimate Decreased (Normal)
[2021-03-20] MEDS: ACETAMINOPHEN 325 MG TAB PO PRN ×2 (08:17→16:16)
[2021-03-20] MEDS: GABAPENTIN 400 MG CAP PO SCH ×3 (08:18→21:02)
[2021-03-20] MEDS: MIDODRINE HCL 2.5 MG TAB PO SCH ×3 (08:18→16:17)
[2021-03-20] MEDS: CITALOPRAM 20 MG TAB PO SCH (08:18)
[2021-03-20] MEDS: FOLIC ACID 1 MG TAB PO SCH (08:18)
[2021-03-20] MEDS: PANCREAZE (LIPASE 10,500U) CAP PO SCH ×4 (08:19→21:03)
[2021-03-20] MEDS: PANTOprazole 40 MG TAB PO SCH (08:19)
[2021-03-20] MEDS: THIAMINE HCL 100 MG TAB PO SCH (08:19)
[2021-03-20] MEDS: LIDOCAINE 5% 1 PATCH TD SCH (08:19)
[2021-03-20] MEDS: VITAMIN B COMPLEX TAB PO SCH (08:19)
[2021-03-20] MEDS: PROMETHAZINE HCL 12.5 MG in SODIUM CHLORIDE 0.9% 50 ML IV PRN (09:05)
[2021-03-20] MEDS: COLESTIPOL HCL 1 GM TAB PO SCH ×2 (10:59→22:11)
[2021-03-20] MEDS: cefTRIAXone SODIUM 2,000 MG in DEXTROSE 5% 50 ML IV SCH (12:58)
--- NOTE | 2021-03-20 16:28 | Hospitalist Progress Note ---
Date of Service March 20, 2021 Assessment & Plan (1) Abdominal ascites: Plan: Abdominal pain Elevated LFTs Cirrhosis Patient has history of alcohol abuse, cirrhosis complicated by esophageal varices and ascites. CT abd/pelvis showedIncreased ascites and redemonstration of cirrhotic and steatotic changes. GI on board Status post paracentesis done on 03/13/21 2 where 2.3 L ascites fluid removed Peritoneal fluid showed no evidence of SBP. Ascites fluid culture pending Continue ceftriaxone 2g IV for SBP coverage as per GI, will complete 7-10 days course abx Continue Lasix and spironolactone as per GI Strict ETOH cessation advised; DT precautions Follow up a 2g Na diet 03/20/21 abdomen nondistended Midodrine 2.5mg TID started --> BP improving hold diuretics, until blood pressure further stabilized Dizziness has resolved monitor closely discussed with GI Chronic alcohol abuse Alcohol withdrawal Pt last drink was the night of 03/11/20 Patient has a history of chronic alcoholism with multiple admissions for alcohol abuse and withdrawal. Continue gabapentin home dose, will discontinue Ativan Continue thiamine and folate Counseling on alcohol cessation Refused inpatient Alcohol rehab Continue monitor closely for DT 03/20/21 no signs/symptoms of alcohol withdrawal Hypokalemia Mostly related to poor oral intake and nausea/vomiting Potassium 4.1 Continue monitor BMP COVID-19 Infection Asymptomatic Does not meet criteria for dexamethasone or remdesivir since oxygen saturation above 94% on room air Continue monitor 03/20/21 remains 95% on room air CXR no signs of pneumonia continue to monitor Pancytopenia: Thrombocytopenia Chronic pancytopenia due to alcohol abuse, cirrhosis and history of RYGB Platelet dropped to 60, WBC 1.08 No fever or sign of infection at this time No active sign of bleeding Continue monitor CBC 03/20/21 stable overall no signs of bleeding continue to monitor DVT prophylaxis on SCD due to thrombocytopenia CODE STATUS full code Disposition pending anticipate d/c home with home health services tomorrow Admission and Anticipated Discharge Date Admission Date: March 12, 2021 Subjective Follow-up for COVID-19 infection, alcoholic liver cirrhosis, etc. Seen resting in bed comfortable States she is having left lower extremity discomfort today, also happens at home sometimes No weakness or numbness Denies shortness of breath, cough, chest pain, palpitations, dizziness abdominal pain No other symptoms Review of Systems Review of Systems: all noted and negative except for above Physical Exam Physical Exam: General- oriented x 3, not in distress, speaks in sentences with no effort or accessory muscle use Eyes- anicteric Neck- no JVD Lungs- clear breath sounds, no crackles or wheezing bilaterally Heart- normal rate, regular rhythm; no murmurs Abdomen- normal bowel sounds, nondistended, soft, nontender Extremities- no pretibial edema, no calf tenderness Left lower extremity: No edema/warmth/tenderness, full range of motion Right lower extremity: Essentially normal Neuro- alert, oriented x 3; no gross focal neurologic deficits Skin- warm & dry Results & Data Results & Data ([facility]) Vital Signs (Past 12 Hours) Vital Signs Temp Pulse Pulse Resp BP BP Pulse Ox 03/20/21 15:17 36.9 C 68 18 90/58 L 95 03/20/21 11:13 36.8 C 79 18 99/62 L 95 03/20/21 09:47 71 03/20/21 07:34 37.1 C 64 18 107/68 94 all noted and reviewed including below (1) Abdominal ascites Ascites type: due to alcoholic cirrhosis Qualified Code(s): K70.31 - Alcoholic cirrhosis of liver with ascites
[2021-03-20] MEDS: rOPINIRole HCL 0.25 MG TABLET PO SCH (21:03)
[2021-03-20] MEDS: traZODone HCL 50 MG TAB PO PRN (21:04)
[2021-03-21 07:27] LABS: Creatinine Clr Calc Pharmacy 153.1 ml/min; Est GFR (Non-African American) 120.8 ml/min; Potassium 3.6 mmol/L (3.5-5.1)
[2021-03-21] MEDS: FUROSEMIDE 40 MG TAB PO SCH (08:14)
[2021-03-21] MEDS: SPIRONOLACTONE 100 MG TAB PO SCH (08:14)
[2021-03-21] MEDS: GABAPENTIN 400 MG CAP PO SCH ×3 (08:15→20:14)
[2021-03-21] MEDS: VITAMIN B COMPLEX TAB PO SCH (08:15)
[2021-03-21] MEDS: MIDODRINE HCL 2.5 MG TAB PO SCH ×3 (08:15→16:08)
[2021-03-21] MEDS: THIAMINE HCL 100 MG TAB PO SCH (08:16)
[2021-03-21] MEDS: PANCREAZE (LIPASE 10,500U) CAP PO SCH ×4 (08:16→20:13)
[2021-03-21] MEDS: PANTOprazole 40 MG TAB PO SCH (08:16)
[2021-03-21] MEDS: CITALOPRAM 20 MG TAB PO SCH (08:16)
[2021-03-21] MEDS: FOLIC ACID 1 MG TAB PO SCH (08:16)
[2021-03-21] MEDS: LIDOCAINE 5% 1 PATCH TD SCH (08:17)
[2021-03-21 08:24] LABS: Hematocrit (blood only) 32.1 % (37-47); Mean Corpuscular Hgb Conc 31.2 g/dL (32-36); Mean Corpuscular Volume 96.4 fL (80-100); RDW Coefficient of Variation 19.4 % (11.5-14.5); RDW Standard Deviation 67.9 fL (36.4-46.3); Red Blood Count 3.33 M/uL (4.2-5.4); White Blood Count 1.22 K/uL (4.8-10.8)
[2021-03-21 08:44] LABS: Platelet Count 73 K/uL (130-400)
[2021-03-21 08:45] LABS: Basophils # (auto) 0.02 K/uL (0-0.2); Basophils % (auto) 1.6 %; Eosinophils # (auto) 0.05 K/uL (0-0.5); Eosinophils % (auto) 4.1 %; Lymphocytes # (auto) 0.32 K/uL (1.2-3.4); Lymphocytes % (auto) 26.2 %; Monocytes # (auto) 0.28 K/uL (0.11-0.59); Neutrophils # (auto) 0.55 K/uL (1.4-6.5); Neutrophils % (auto) 45.1 %
[2021-03-21] MEDS: COLESTIPOL HCL 1 GM TAB PO SCH ×2 (09:49→22:00)
[2021-03-21] MEDS: LOPERAMIDE HCL 2 MG CAP PO PRN (10:19)
[2021-03-21] MEDS: cefTRIAXone SODIUM 2,000 MG in DEXTROSE 5% 50 ML IV SCH (12:55)
--- NOTE | 2021-03-21 14:51 | Hospitalist Progress Note ---
Date of Service March 21, 2021 Assessment & Plan (1) Abdominal ascites: Plan: Abdominal pain Elevated LFTs Cirrhosis Patient has history of alcohol abuse, cirrhosis complicated by esophageal varices and ascites. CT abd/pelvis showedIncreased ascites and redemonstration of cirrhotic and steatotic changes. GI on board Status post paracentesis done on 03/13/21 2 where 2.3 L ascites fluid removed Peritoneal fluid showed no evidence of SBP. Ascites fluid culture pending Continue ceftriaxone 2g IV for SBP coverage as per GI, will complete 7-10 days course abx Continue Lasix and spironolactone as per GI Strict ETOH cessation advised; DT precautions Follow up a 2g Na diet 03/21/21 abdomen nondistended Midodrine 2.5mg TID started --> BP improving resume diuretics today Dizziness has resolved monitor closely discussed with GI Chronic alcohol abuse Alcohol withdrawal Pt last drink was the night of 03/11/20 Patient has a history of chronic alcoholism with multiple admissions for alcohol abuse and withdrawal. Continue gabapentin home dose, will discontinue Ativan Continue thiamine and folate Counseling on alcohol cessation Refused inpatient Alcohol rehab Continue monitor closely for DT 03/21/21 no signs/symptoms of alcohol withdrawal Hypokalemia Mostly related to poor oral intake and nausea/vomiting Potassium 4.1 Continue monitor BMP COVID-19 Infection Asymptomatic Does not meet criteria for dexamethasone or remdesivir since oxygen saturation above 94% on room air Continue monitor 03/21/21 remains 93-96% on room air CXR no signs of pneumonia continue to monitor Pancytopenia: Thrombocytopenia Chronic pancytopenia due to alcohol abuse, cirrhosis and history of RYGB Platelet dropped to 60, WBC 1.08 No fever or sign of infection at this time No active sign of bleeding Continue monitor CBC 03/21/21 stable overall no signs of bleeding continue to monitor DVT prophylaxis on SCD due to thrombocytopenia CODE STATUS full code Disposition pending anticipate d/c home with home health services tomorrow Admission and Anticipated Discharge Date Admission Date: March 12, 2021 Subjective ff up for liver cirrhosis, COVID 19 infection, etc seen resting in bed, comfortable states she feels fine overall smiling no dyspnea, cough, chest pain no abdominal pain,nausea/vomiting reports mild muscle aches, no other symptoms Review of Systems Review of Systems: all noted and negative except for above Physical Exam Physical Exam: General- oriented x 3, not in distress, speaks in sentences with no effort or accessory muscle use Eyes- anicteric Neck- no JVD Lungs- clear BS BL Heart- normal rate, regular rhythm; no murmurs Abdomen- normal bowel sounds, nondistended, soft, nontender Extremities- no pretibial edema, no calf tenderness Neuro- alert, oriented x 3; no gross focal neurologic deficits Skin- warm & dry Results & Data Results & Data ([facility]) Vital Signs (Past 12 Hours) Vital Signs Temp Pulse Resp BP BP Pulse Ox 03/21/21 14:33 37.6 C H 79 16 93/58 L 93 03/21/21 10:40 36.9 C 71 16 114/75 96 03/21/21 07:50 36.8 C 74 16 116/77 95 03/21/21 03:00 37 C 69 18 88/52 L 92 all noted and reviewed including below (1) Abdominal ascites Ascites type: due to alcoholic cirrhosis Qualified Code(s): K70.31 - Alcoholic cirrhosis of liver with ascites
[2021-03-21] MEDS: ACETAMINOPHEN 325 MG TAB PO PRN ×2 (15:04→20:12)
[2021-03-21] MEDS: traZODone HCL 50 MG TAB PO PRN (20:12)
[2021-03-21] MEDS: rOPINIRole HCL 0.25 MG TABLET PO SCH (20:13)
[2021-03-22 07:00] LABS: BUN Creatinine Ratio 23.3 (10-20); Calcium 8.2 mg/dl (8.5-10.1); Creatinine Clr Calc Pharmacy 124.6 ml/min; Est GFR (African American) 130.9 ml/min; Est GFR (Non-African American) 112.9 ml/min; Potassium 3.9 mmol/L (3.5-5.1)
[2021-03-22] MEDS: GABAPENTIN 400 MG CAP PO SCH (08:11)
[2021-03-22] MEDS: LOPERAMIDE HCL 2 MG CAP PO PRN ×2 (08:11→10:07)
[2021-03-22] MEDS: FOLIC ACID 1 MG TAB PO SCH (08:11)
[2021-03-22] MEDS: PANCREAZE (LIPASE 10,500U) CAP PO SCH (08:13)
[2021-03-22] MEDS: CITALOPRAM 20 MG TAB PO SCH (08:13)
[2021-03-22] MEDS: VITAMIN B COMPLEX TAB PO SCH (08:13)
[2021-03-22] MEDS: THIAMINE HCL 100 MG TAB PO SCH (08:14)
[2021-03-22] MEDS: PANTOprazole 40 MG TAB PO SCH (08:15)
[2021-03-22] MEDS: FUROSEMIDE 40 MG TAB PO SCH (08:15)
[2021-03-22] MEDS: SPIRONOLACTONE 100 MG TAB PO SCH (08:15)
[2021-03-22] MEDS: MIDODRINE HCL 2.5 MG TAB PO SCH ×3 (08:16→11:46)
[2021-03-22] MEDS: LIDOCAINE 5% 1 PATCH TD SCH (08:16)
[2021-03-22] MEDS: COLESTIPOL HCL 1 GM TAB PO SCH (10:09)
--- NOTE | 2021-03-22 18:28 | Hospitalist Progress Note ---
Date of Service March 22, 2021 Assessment & Plan (1) Abdominal ascites: Plan: Abdominal pain Elevated LFTs Cirrhosis Patient has history of alcohol abuse, cirrhosis complicated by esophageal varices and ascites. CT abd/pelvis showedIncreased ascites and redemonstration of cirrhotic and steatotic changes. GI on board Status post paracentesis done on 03/13/21 2 where 2.3 L ascites fluid removed Peritoneal fluid showed no evidence of SBP. Ascites fluid culture: Negative Given ceftriaxone 2g IV for SBP coverage Started on Lasix and spironolactone as per GI Strict ETOH cessation advised; DT precautions 03/22/21 abdomen nondistended Midodrine 2.5mg TID started --> uptitrated to 5 mg 3 times daily Continue Lasix 40 mg and Aldactone 100 mg daily Dizziness has resolved Will need to follow-up with GI in 1 to 2 weeks Chronic alcohol abuse Alcohol withdrawal Pt last drink was the night of 03/11/20 Patient has a history of chronic alcoholism with multiple admissions for alcohol abuse and withdrawal. No overt signs and symptoms of alcohol withdrawal Refused inpatient Alcohol rehab Continue monitor closely for DT Hypokalemia Mostly related to poor oral intake and nausea/vomiting Potassium 3.9 Repeat basic metabolic profile and follow-up with PCP in 1 week COVID-19 Infection Asymptomatic Does not meet criteria for dexamethasone or remdesivir since oxygen saturation above 94% on room air Respiratory status remained stable, O2 saturation above 94% CXR no signs of pneumonia Completed 10-day course of isolation while in hospital Pancytopenia: Thrombocytopenia Chronic pancytopenia due to alcohol abuse, cirrhosis and history of RYGB Platelet dropped to 60, WBC 1.08 No fever or sign of infection at this time No active sign of bleeding Continue monitor CBC 03/22/2021 stable overall no signs of bleeding Repeat CBC on follow-up with primary care physician in 1 week Disposition Discharge to home with home health services Follow-up with primary care physician in 1 week 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 Seen resting in bed, comfortable, in good spirits, smiling States that she feels better overall No changes with breathing, no shortness of breath or cough No abdominal pain, nausea vomiting, fevers or chills No dizziness No other symptoms States that she is ready for discharge to Review of Systems Review of Systems: all noted and negative except for above Physical Exam Physical Exam: General- oriented x 3, not in distress, speaks in sentences with no effort or accessory muscle use Eyes- anicteric Neck- no JVD Lungs- clear breath sounds, no wheezing, no crackles bilaterally Heart- normal rate, regular rhythm; no murmurs Abdomen- normal bowel sounds, nondistended, soft, nontender Extremities- no pretibial edema, no calf tenderness Neuro- alert, oriented x 3; no gross focal neurologic deficits Skin- warm & dry Results & Data Results & Data ([facility]) Vital Signs (Past 12 Hours) Vital Signs Temp Pulse Pulse Resp BP BP Pulse Ox 03/22/21 11:19 37.0 C 73 16 100/66 100/58 L 93 03/22/21 10:00 37.0 C 73 16 100/66 93 03/22/21 08:00 66 03/22/21 07:00 36.8 C 74 16 91/54 L 95 all noted and reviewed including below (1) Abdominal ascites Ascites type: due to alcoholic cirrhosis Qualified Code(s): K70.31 - Alcoholic cirrhosis of liver with ascites
--- NOTE | 2021-03-22 18:33 | Discharge Summary ---
Date of Service March 22, 2021 Admission HPI Per Admitting Provider History obtained from patient and records. Medical history significant for alcoholic cirrhosis, ongoing alcohol abuse, history of gastric varices, chronic pancytopenia as per records, chronic pain as per records, history seizures as per records, history thoracic/lumbar compression fracture, past tobacco abuse. Recent confinement [facility] February 07, 2021 to February 16, 2021 for decompensated cirrhosis and and UGIB secondary to esophageal varices. Patient transferred from [facility]. Patient underwent successful visceral angiography with left gastric artery branch embolization via right groin femoral artery access [place] [facility] [place] Two paracentesis procedures done for ascites at [facility] [place]. Occasional EtOH intake upon return home. Patient noted increasing abdominal distention the last week with a little worsening of chronic watery diarrhea symptoms. Shortness of breath from abdominal distention as per patient. Dry cough symptoms without chest pain. No known recent COVID-19 contacts. Patient claims to have completed COVID-19 vaccination. Patient consulted ER for worsening symptoms. 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 Admission Exam (Per Admitting) Constitutional GENERAL: Slightly uncomfortable, no respiratory distress SKIN: Pallor, warm HEENT: Pale palpebral conjunctivae, no ptosis, dry buccal mucosa NECK : Supple, no tenderness CHEST : Decreased breath sounds, no tenderness HEART : RRR, no obvious murmurs ABDOMEN: Marked distention, hypogastric tenderness, positive fluid wave EXTREMITIES : Minimal LE swelling, no LE tenderness, no other conspicuous deformities noted NEUROLOGIC : Coherent, no facial asymmetry, gait and stance not assessed Discharge Data Consultations 03/11/21 23:30 ED Decision to Admit Stat 03/12/21 03:52 Consult Gastroenterology Routine Procedures Performed CT abd pelvis IV con only CLINICAL HISTORY: abd pain, hx colitis/cirrhosis TECHNIQUE: Helical axial images of the abdomen and pelvis were obtained and displayed. Automated dose lowering techniques and/or adjustment according to p atient size were utilized for this exam. This exam was performed with intravenous contrast. COMPARISON: Comparison is made to CT abdomen pelvis 02/06/2021 FINDINGS: Lower chest: No acute abnormality Liver: Nodular contour of the liver is seen compatible with cirrhosis. The liver is decreased in size. Fatty infiltration is again seen in the hepatic parenchyma. Gallbladder and biliary tree: Patient is status post cholecystectomy. Physiologic prominence of the biliary ducts is noted. Pancreas: Unremarkable, no focal lesions. Spleen: Spleen is prominent size measuring 12 cm in length. Adrenals: Unremarkable. Kidneys and ureters: Unremarkable. Bladder: Unremarkable. Reproductive organs: Patient is status post hysterectomy. Bowel: Limited evaluation due to ascites, however there is thickening of the right:. This is similar in appearance to prior exam. Postsurgical changes are seen in the stomach and bowel. Lymph nodes Retroperitoneal: Unremarkable. Mesenteric: Unremarkable. Pelvic: Unremarkable. Peritoneum: Moderate to large ascites, increased from prior exam. Vessels: Unremarkable. Abdominal wall: Mild body wall edema is seen. Bones: Degenerative changes in the visualized spine. Compression deformity of L2, L4, L5 is unchanged. Partial visualization of multiple thoracic compression deformities. Hardware is seen in the left femur. IMPRESSION: 1. Increased ascites and redemonstration of cirrhotic and steatotic changes. 2. Bowel wall thickening may be secondary to edema, however clinical correlation for infectious/inflammatory colitis is recommended. 3. Additional findings as above. ACT 112: Negative or not required by law. Electronically signed by: Roger Flores M.D. 03/12/2021 7:08 AM XR chest 1V portable HISTORY: 56 years-old Female sob acute shortness of breath COMPARISON: Chest radiograph 02/06/2021 TECHNIQUE: Portable AP view of the chest FINDINGS: The cardiomediastinal and hilar silhouettes are within normal limits. There is unchanged right hemidiaphragmatic elevation. No pneumothorax, large pleural effusion or overt pulmonary edema. Mild linear bibasilar atelectasis/scarring. Degenerative changes of the shoulders and spine. Surgical clips project over the upper abdomen. IMPRESSION: No acute process. ACT 112: Negative or not required by law. The above report was generated using voice recognition software. It may contain grammatical, syntax or spelling errors. Electronically signed by: Fredy Matos M.D. 03/12/2021 6:34 AM Hospital Course (1) Abdominal ascites: Abdominal pain Elevated LFTs Cirrhosis Patient has history of alcohol abuse, cirrhosis complicated by esophageal varices and ascites. CT abd/pelvis showedIncreased ascites and redemonstration of cirrhotic and steatotic changes. GI on board Status post paracentesis done on 03/13/21 2 where 2.3 L ascites fluid removed Peritoneal fluid showed no evidence of SBP. Ascites fluid culture: Negative Given ceftriaxone 2g IV for SBP coverage Started on Lasix and spironolactone as per GI Strict ETOH cessation advised; DT precautions 03/22/21 abdomen nondistended Midodrine 2.5mg TID started --> uptitrated to 5 mg 3 times daily Continue Lasix 40 mg and Aldactone 100 mg daily Dizziness has resolved Will need to follow-up with GI in 1 to 2 weeks Chronic alcohol abuse Alcohol withdrawal Pt last drink was the night of 03/11/20 Patient has a history of chronic alcoholism with multiple admissions for alcohol abuse and withdrawal. No overt signs and symptoms of alcohol withdrawal Refused inpatient Alcohol rehab Continue monitor closely for DT Hypokalemia Mostly related to poor oral intake and nausea/vomiting Potassium 3.9 Repeat basic metabolic profile and follow-up with PCP in 1 week COVID-19 Infection Asymptomatic Does not meet criteria for dexamethasone or remdesivir since oxygen saturation above 94% on room air Respiratory status remained stable, O2 saturation above 94% CXR no signs of pneumonia Completed 10-day course of isolation while in hospital Pancytopenia: Thrombocytopenia Chronic pancytopenia due to alcohol abuse, cirrhosis and history of RYGB Platelet dropped to 60, WBC 1.08 No fever or sign of infection at this time No active sign of bleeding Continue monitor CBC 03/22/2021 stable overall no signs of bleeding Repeat CBC on follow-up with primary care physician in 1 week Disposition Discharge to home with home health services Follow-up with primary care physician in 1 week Follow-up with capsule maker in 1 week
== END 2021-03-22 12:54 | disposition home health service (06) | DRG 432 ==
LOC: ED 18:24 → EDINP 03-12 00:18 → SUATTDRO 03-12 00:18 → EDINP 03-12 05:27 → 2W 03-12 20:39

== ENCOUNTER 2021-04-04 23:47 | Observation (INO) ==
[2021-04-05] MEDS ORDERED: PANTOPRAZOLE BOLUS/DRIP 1 EA IV STA (00:26)
[2021-04-05] MEDS ORDERED: PANTOprazole 80 MG in DEXTROSE 5% 100 ML IV ONE (00:26)
[2021-04-05] MEDS ORDERED: SODIUM CHLORIDE 0.9% 1000ML 1,000 ML IV ONE (00:26)
--- NOTE | 2021-04-05 00:48 | Emergency Department Note ---
History of Present Illness General Chief complaint: Vomiting Stated complaint: VOMITING AND DIARRHEA - BLOODY Time Seen by Provider: 04/05/21 00:01 Source: patient Mode of arrival: EMS Limitations: no limitations History of Present Illness Provider complaint: GI bleed Onset (ago): day(s) 2 Location: abdomen Maximum Pain Intensity: 6 Treatments prior to arrival: none This 56-year-old female presents emergency department complaining of abdominal pain and GI bleed. Patient states 2 nights ago she began with abdominal pain, nausea and vomiting of bright red blood. Yesterday during the day she began having bright red bloody diarrhea. Patient with a longstanding history of alcohol abuse and multiple prior GI bleeds. Patient states she is still using alcohol intermittently admits to 4 beers 2 nights ago. Patient states she is taking her other medications as prescribed. Patient states her abdominal pain radiates into the back at times. She denies fevers or chills. Patient denies chest pain or trouble breathing. Pt seen during a time of high acuity and national emergency pandemic while wearing PPE. Home Medications Medication Instructions Recorded Confirmed Type loperamide 2 mg capsule 2 mg PO Q8H PRN 09/11/19 04/05/21 History citalopram 10 mg tablet (Celexa) 20 mg PO DAILY 30 Days #60 tab 11/09/19 04/05/21 Rx colestipol 1 gram tablet 2 g PO BID 30 Days #120 tab 11/09/19 04/05/21 Rx folic acid 1 mg tablet 1 mg PO QAM #30 tab 11/09/19 04/05/21 Rx gabapentin 400 mg capsule 400 mg PO TID 30 Days #90 cap 11/09/19 04/05/21 Rx lidocaine 5 % topical patch 1 patch TRANSDERMAL QAM #10 ea 11/09/19 04/05/21 Rx thiamine HCl (vitamin B1) 100 mg 100 mg PO QAM #30 tab 11/09/19 04/05/21 Rx tablet (Vitamin B-1) hydroxyzine HCl 25 mg tablet 25 - 50 mg PO BID PRN 05/30/20 04/05/21 History riboflavin (vitamin B2) 100 mg 100 mg PO DAILY #30 tab 06/10/20 04/05/21 Rx tablet ropinirole 0.25 mg tablet 0.25 mg PO HS 02/06/21 04/05/21 History trazodone 50 mg tablet 50 mg PO HS PRN 03/11/21 04/05/21 History monoro-hulnceid-sooymhi 1 cap PO QID #120 cap 03/22/21 04/05/21 Rx 36,000-114,000-180,000 unit capsule,delay rel (Creon) midodrine 5 mg tablet 5 mg PO TID #90 tab 03/22/21 04/05/21 Rx gabapentin 600 mg tablet 600 mg PO Q12H #2 tab 04/05/21 Rx gabapentin 600 mg tablet 600 mg PO Q24H #1 tab 04/05/21 Rx gabapentin 600 mg tablet 600 mg PO Q6H #4 tab 04/05/21 Rx gabapentin 600 mg tablet 600 mg PO Q8H #3 tab 04/05/21 Rx Allergies Allergy/AdvReac Type Severity Reaction Status Date / Time diphenhydramine Allergy Severe seizures/it Verified 04/05/21 01:05 mya/tremo rs bupropion Allergy Intermediate Palpitation Verified 04/05/21 01:05 s clarithromycin Allergy Intermediate HIVES Verified 04/05/21 01:05 aspirin Allergy Mild hives/ringing Verified 04/05/21 01:05 of ears oxaprozin Allergy Mild nausea/vomi Verified 04/05/21 01:05 ting salicylates Allergy Mild ringing in Verified 04/05/21 01:05 ears/hives Past Med/Surg History Medical History Alcohol abuse hx of Anxiety Anxiety Chronic pain Cirrhosis Degenerative disc disease Esophageal varices with banding Factitious disorder Fibromyalgia Hypomagnesemia Lumbago Multiple sclerosis Opiate addiction HX OF AND NO PROBLEMS NOW Opiate misuse Pancreatitis Pelvis fracture HX OF CRUSHED PELVIS - FROM ACCIDENT FALLING INTO DUMPSTER CHRONIC PAIN Presence of intrathecal pump PUMP IN PLACE AND NOT WORKING IT WAS TURNED OFF!!! containing morphine 0.189mg/day and fentanyl 2.52mcg/day miminimal rate per pt "it doesnt work I haven't been able to afford the medication for 3 years now"?? 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 Surgical History History of cholecystectomy History of colonoscopy History of esophagogastroduodenoscopy (EGD) History of open reduction and internal fixation (ORIF) procedure left arm/left leg--hardware in place History of Jeffy-en-Y gastric bypass History of tooth extraction all teeth removed History of total hysterectomy with bilateral salpingo-oophorectomy (BSO) Hx of laparoscopy FOR ENDOMETRIOSIS Hx of resection of small bowel DUE TO ENDOMETRIOSIS Family History Other Aneurysm Cancer No family history of adverse response to anesthesia Stroke Social History Smoking Status: Never smoker Tobacco Type: Cigarettes Second Hand Exposure: No; Hx Alcohol Use: Yes Alcohol type: beer Hx Substance Use: No Preferred Language: Ecuadorean Communication Ability: Effective Sander And Buffer Required: No Beliefs That Will Affect Care: None marital status: Current Living Situation: Significant Other Current Living Situation Comment: Shasha Jurado How many Children do You have: 3 Feels Safe at Home: Yes Assistive Devices: Walker Review of Systems A total of 10 systems reviewed and were otherwise negative All systems reviewed & are unremarkable except as noted in HPI & below Physical Exam Vital Signs Vital Signs - 24 hr 04/04/21 23:52 04/05/21 00:54 04/05/21 02:46 Temperature 37 C Temperature Source Oral Pulse Rate 110 H Pulse Rate [Apical] 109 H 113 H Pulse Rhythm Regular Pulse Strength Normal Respiratory Rate 16 16 20 Respiratory Effort / Characteristics Non-Labored Spontaneous Respiratory Depth Normal Blood Pressure 122/86 Blood Pressure [Left Arm] 123/84 119/77 Blood Pressure Mean 98 Blood Pressure Mean [Left Arm] 97 91 Blood Pressure Position Sitting Blood Pressure Position [Left Arm] Lying Pulse Oximetry 97 94 96 Oxygen Delivery Method Room Air Sepsis Recent Fever Within 48 Hours No Sepsis New/Unexplained Change in Mental Status No Sepsis Action Taken by Nursing No Action Required 04/05/21 04:00 Temperature Temperature Source Pulse Rate Pulse Rate [Apical] 103 H Pulse Rhythm Pulse Strength Respiratory Rate 17 Respiratory Effort / Characteristics Respiratory Depth Blood Pressure Blood Pressure [Left Arm] 127/65 Blood Pressure Mean Blood Pressure Mean [Left Arm] 85 Blood Pressure Position Blood Pressure Position [Left Arm] Lying Pulse Oximetry 97 Oxygen Delivery Method Room Air Sepsis Recent Fever Within 48 Hours Sepsis New/Unexplained Change in Mental Status Sepsis Action Taken by Nursing GENERAL: alert, unwell appearing, well nourished, mild distress, non-toxic, lying right lateral recumbent EYE EXAM: normal conjunctiva, PERRL and EOM's grossly intact OROPHARYNX: no exudate, no erythema, lips, buccal mucosa, and tongue normal and mucous membranes are dry NECK: supple, no nuchal rigidity, no adenopathy, non-tender LUNGS: Clear to auscultation. Normal chest wall mechanics, no w/r/r HEART: no murmurs, S1 normal and S2 normal ABDOMEN: abdomen soft, generalized discomfort with palpation, normo-active bowel sounds, no masses, no rebound or guarding. BACK: Back is symmetrical on inspection and there is no deformity, no midline tenderness, no CVA tenderness. SKIN: no rashes and no bruising UPPER EXTREMITIES: upper extremities are grossly normal. FROM, nml pulses b/l. LOWER EXTREMITIES: No pitting edema. FROM, nml pulses b/l. NEURO EXAM: Normal sensorium, cranial nerves II-XII grossly intact, normal speech, no gross weakness of arms, no gross weakness of legs. Gross sensation intact. Course Administered Medications Lipase/Protease/Amylase (Pancreaze (Lipase 10,500u) Cap) 1 cap PO ACHS MICHELLE Stop: 05/05/21 08:59 Last Admin: 04/05/21 20:31 Dose: 1 cap Documented by: [id number] Admin: 04/05/21 18:16 Dose: 1 cap Documented by: [id number] Admin: 04/05/21 12:43 Dose: 1 cap Documented by: [id number] Admin: 04/05/21 09:34 Dose: 1 cap Documented by: [id number] Citalopram Hydrobromide (Citalopram 20 Mg Tab) 20 mg PO DAILY MICHELLE Stop: 05/05/21 08:59 Last Admin: 04/05/21 09:32 Dose: 20 mg Documented by: [id number] Colestipol HCl (Colestipol Hcl 1 Gm Tab) 2 gm PO BID@1000,2200 MICHELLE Stop: 05/05/21 09:59 Last Admin: 04/05/21 20:33 Dose: 2 gm Documented by: [id number] Admin: 04/05/21 09:33 Dose: 2 gm Documented by: [id number] Sodium Chloride (Nss 1000ml) 1,000 mls @ 50 mls/hr IV .Q20H MICHELLE Stop: 05/05/21 07:50 Last Infusion: 04/05/21 20:54 Dose: 0 mls/hr Documented by: [id number] Admin: 04/05/21 11:10 Dose: 50 mls/hr Documented by: [id number] Pantoprazole Sodium 40 mg/ (Dextrose) 100 mls @ 20 mls/hr IV Q5H MICHELLE Stop: 05/05/21 11:29 Last Admin: 04/05/21 18:16 Dose: 8 mg/hr, 20 mls/hr Documented by: [id number] Infusion: 04/05/21 17:47 Dose: 0 mg/hr, 0 mls/hr Documented by: [id number] Admin: 04/05/21 12:43 Dose: 8 mg/hr, 20 mls/hr Documented by: [id number] Octreotide Acetate 500 mcg/ (Dextrose) 105 mls @ 10.5 mls/hr IV .Q10H MICHELLE Stop: 05/05/21 07:50 Last Infusion: 04/05/21 20:54 Dose: 0 mcg/hr, 0 mls/hr Documented by: [id number] Admin: 04/05/21 18:17 Dose: 50 mcg/hr, 10.5 mls/hr Documented by: [id number] Infusion: 04/05/21 18:17 Dose: 0 mcg/hr, 0 mls/hr Documented by: [id number] Admin: 04/05/21 09:32 Dose: 50 mcg/hr, 10.5 mls/hr Documented by: [id number] Thiamine HCl 100 mg/ Syringe 10 mls @ 2 mls/min IV QAM [facility] Stop: 05/05/21 08:59 Last Admin: 04/05/21 09:32 Dose: 2 mls/min Documented by: [id number] Folic Acid 1 mg/ Syringe 10 mls @ 5 mls/min IV QAM [facility] Stop: 05/05/21 08:59 Last Admin: 04/05/21 09:32 Dose: 5 mls/min Documented by: [id number] Lorazepam (Ativan) 1 mg in 2 mls @ 2 mls/min IV UD PRN; Protocol PRN Reason: EtOH Withdrawl AWSS Score 6,7 Stop: 05/05/21 07:50 Last Admin: 04/05/21 10:50 Dose: 2 mls/min Documented by: [id number] Lorazepam (Ativan) 2 mg in 4 mls @ 4 mls/min IV UD PRN; Protocol PRN Reason: EtOH Withdrawl AWSS Score 8,9 Stop: 05/05/21 07:50 Last Admin: 04/05/21 20:21 Dose: 4 mls/min Documented by: [id number] Admin: 04/05/21 14:06 Dose: 4 mls/min Documented by: [id number] Lidocaine (Lidocaine 5% 1 Patch) 1 patch TD QAM [facility] Stop: 05/05/21 08:59 Last Admin: 04/05/21 09:33 Dose: 1 patch Documented by: [id number] Midodrine (Midodrine Hcl 2.5 Mg Tab) 5 mg PO TID MICHELLE Stop: 05/05/21 08:59 Last Admin: 04/05/21 20:32 Dose: 5 mg Documented by: [id number] Admin: 04/05/21 14:12 Dose: 5 mg Documented by: [id number] Admin: 04/05/21 09:33 Dose: 5 mg Documented by: [id number] Miscellaneous (Remove Lidoderm Patch) 1 ea N/A DAILY@2100 [facility] Stop: 05/05/21 20:59 Last Admin: 04/05/21 20:32 Dose: 1 ea Documented by: [id number] Ropinirole HCl (Ropinirole Hcl 0.25 Mg Tablet) 0.25 mg PO HS MICHELLE Stop: 05/05/21 20:59 Last Admin: 04/05/21 20:32 Dose: 0.25 mg Documented by: [id number] Trazodone HCl (Trazodone Hcl 50 Mg Tab) 50 mg PO HS PRN PRN Reason: Sleep Stop: 05/05/21 07:50 Last Admin: 04/05/21 20:34 Dose: 50 mg Documented by: [id number] Discontinued Medications Gabapentin (Gabapentin 1200mg Alcohol Withdrawal Load) 1 ea PO NOW STA; Protocol Stop: 04/05/21 05:44 Last Admin: 04/05/21 06:35 Dose: Not Given Documented by: [id number] Gabapentin (Gabapentin 600 Mg Tab) 1,200 mg PO NOW STA Stop: 04/05/21 06:01 Last Admin: 04/05/21 06:19 Dose: 1,200 mg Documented by: [id number] Gabapentin (Gabapentin 600 Mg Tab) 1,200 mg PO NOW ONE Stop: 04/05/21 09:01 Last Admin: 04/05/21 09:33 Dose: 1,200 mg Documented by: [id number] Gabapentin (Gabapentin 600 Mg Tab) 600 mg PO Q6H MICHELLE Stop: 04/05/21 19:01 Last Admin: 04/05/21 20:21 Dose: 600 mg Documented by: [id number] Admin: 04/05/21 14:06 Dose: 600 mg Documented by: [id number] Sodium Chloride (Nss 1000ml) 1,000 mls @ 999 mls/hr IV .Q1H1M ONE Stop: 04/05/21 01:26 Last Infusion: 04/05/21 03:15 Dose: 0 mls/hr Documented by: [id number] Admin: 04/05/21 00:50 Dose: 999 mls/hr Documented by: [id number] Pantoprazole Sodium (Protonix Bolus/Drip) 0 mls @ 1 mls/hr IV ONE STA Stop: 04/05/21 00:27 Last Infusion: 04/05/21 01:50 Dose: 0 mls/hr Documented by: [id number] Admin: 04/05/21 01:49 Dose: 1 mls/hr Documented by: [id number] Pantoprazole Sodium 40 mg/ (Dextrose) 100 mls @ 20 mls/hr IV Q5H [facility] Stop: 05/05/21 00:44 Last Infusion: 04/05/21 11:10 Dose: 0 mg/hr, 0 mls/hr Documented by: [id number] Admin: 04/05/21 06:44 Dose: 8 mg/hr, 20 mls/hr Documented by: [id number] Infusion: 04/05/21 06:40 Dose: 8 mg/hr, 20 mls/hr Documented by: [id number] Admin: 04/05/21 01:40 Dose: 8 mg/hr, 20 mls/hr Documented by: [id number] Pantoprazole Sodium 80 mg/ (Dextrose) 120 mls @ 400 mls/hr IV NOW ONE Stop: 04/05/21 00:43 Last Infusion: 04/05/21 01:37 Dose: 0 mls/hr Documented by: [id number] Admin: 04/05/21 01:15 Dose: 400 mls/hr Documented by: [id number] Multivitamins 10 ml/ Thiamine HCl 100 mg/ Folic Acid 1 mg/Sodium Chloride 1,011.2 mls @ 250 mls/hr IV .Q4H3M ONE Stop: 04/05/21 05:19 Last Infusion: 04/05/21 07:19 Dose: 0 mls/hr Documented by: [id number] Admin: 04/05/21 03:14 Dose: 250 mls/hr Documented by: [id number] Magnesium Sulfate/Dextrose (Magnesium Sulfate / D5w) 1 gm in 100 mls @ 100 mls/hr IV NOW STA Stop: 04/05/21 02:16 Last Infusion: 04/05/21 03:15 Dose: 0 mls/hr Documented by: [id number] Admin: 04/05/21 01:45 Dose: 100 mls/hr Documented by: [id number] Ceftriaxone Sodium (Rocephin) 1,000 mg in 50 mls @ 100 mls/hr IV NOW STA Stop: 04/05/21 01:46 Last Infusion: 04/05/21 02:34 Dose: 0 mls/hr Documented by: [id number] Admin: 04/05/21 01:44 Dose: 100 mls/hr Documented by: [id number] Acetaminophen (Ofirmev) 1,000 mg in 100 mls @ 400 mls/hr IV NOW STA Stop: 04/05/21 03:55 Last Infusion: 04/05/21 04:48 Dose: 0 mls/hr Documented by: [id number] Admin: 04/05/21 03:49 Dose: 400 mls/hr Documented by: [id number] Lorazepam (Ativan) 1 mg in 2 mls @ 2 mls/min IV Q4H PRN PRN Reason: Alcohol Withdrawal Stop: 05/05/21 04:40 Last Admin: 04/05/21 06:30 Dose: 2 mls/min Documented by: [id number] Octreotide Acetate 50 mcg/ (Syringe) 10 mls @ 3 mls/min IV ONE STA Stop: 04/05/21 05:46 Last Admin: 04/05/21 06:19 Dose: 3 mls/min Documented by: [id number] Ioversol (Optiray 320 100ml) 94 ml IV ONCE ONE Stop: 04/05/21 02:31 Last Admin: 04/05/21 02:30 Dose: 94 ml Documented by: [id number] Miscellaneous (Stat Iv) 1 ea N/A NOW STA Stop: 04/05/21 05:44 Last Admin: 04/05/21 06:55 Dose: Not Given Documented by: [id number] Critical Care Time Critical Care Time: Yes Total Critical Care Time: 41 Critical care of 41 min performed to assess and manage high likelihood of life- threatening GI bleed, involving labs and imaging performed with assessment to evaluate GI bleed diagnosis with frequent reassessment. This time includes bed side time, treatment discussions with patient/family/consultants, documentation time and excludes procedure time. Medical Decision Making Differential Diagnosis Differential diagnosis includes etiologies such as diverticulosis, AVM, coagulopathy, colitis, inflammatory bowel disease, malignancy, Lilian-Hartmann tear, esophagitis, peptic ulcer disease, variceal bleed, gastritis, epistaxis, fissure, hemorrhoids, as well as others were entertained. Medical Records Attestation: I reviewed the patient's medical records. Home Medications Current Medication List: was personally reviewed by me Laboratory Data Attestation: I reviewed the patient's lab results. Result diagrams: 04/05/21 17:24 04/05/21 00:07 Lab Results 04/05/21 04/05/21 04/05/21 Range/Units 00:07 00:07 00:07 WBC 3.20 L (4.8-10.8) K/uL RBC 3.70 L (4.2-5.4) M/uL Hgb 10.7 L (12.0-16.0) g/dL Hct 33.0 L (37-47) % MCV 89.2 (80-100) fL MCH 28.9 (25-34) pg MCHC 32.4 (32-36) g/dL RDW Std Deviation 60.4 H (36.4-46.3) fL RDW Coeff of Chetan 18.7 H (11.5-14.5) % Plt Count 113 L (130-400) K/uL MPV 9.5 (7.4-10.4) fL Immature Gran % (Auto) 0.3 % Neut % (Auto) 76.8 % Lymph % (Auto) 15.3 % [place] % (Auto) 6.3 % Eos % (Auto) 0.0 % Baso % (Auto) 1.3 % Neut # (Auto) 2.46 (1.4-6.5) K/uL Lymph # (Auto) 0.49 L (1.2-3.4) K/uL [place] # (Auto) 0.20 (0.11-0.59) K/uL Eos # (Auto) 0.00 (0-0.5) K/uL Baso # (Auto) 0.04 (0-0.2) K/uL Immature Gran # (Auto) 0.01 (0.00-0.02) K/uL PT 12.4 H (9.0-12.0) Seconds INR 1.2 H (0.9-1.1) Sodium 133 L (136-145) mmol/L Potassium 4.3 (3.5-5.1) mmol/L Chloride 99 (98-107) mmol/L Carbon Dioxide 22 (21-32) mmol/L Anion Gap 12 H (3-11) BUN 9 (6-23) mg/dl Creatinine 0.43 L (0.6-1.2) mg/dl Est Cr Clr Drug Dosing 118.5 ml/min Est GFR ( Amer) 130.9 ml/min Est GFR (Non-Af Amer) 112.9 ml/min BUN/Creatinine Ratio 20.9 H (10-20) Glucose 118 H (70-99(Fasting)) mg/dl Lactate (0.4-2.0) mmol/L Calcium 8.5 (8.5-10.1) mg/dl Magnesium 1.6 L (1.7-2.4) mg/dl Total Bilirubin 2.1 H (0.2-1.0) mg/dl AST 55 H (13-39) U/L ALT 20 (7-52) U/L Alkaline Phosphatase 298 H (34-104) U/L Troponin I < 0.03 (0-0.04) ng/ml Total Protein 8.0 (6.0-8.3) gm/dl Albumin 3.6 (3.4-5.0) gm/dl Globulin 4.4 H (2.5-4.0) gm/dl Albumin/Globulin Ratio 0.8 L (0.9-2) Lipase 11 (11-82) U/L SARS-CoV-2, RNA, NAAT (NEGATIVE) Blood Type Antibody Screen 04/05/21 04/05/21 04/05/21 Range/Units 01:03 01:25 03:41 WBC (4.8-10.8) K/uL RBC (4.2-5.4) M/uL Hgb (12.0-16.0) g/dL Hct (37-47) % MCV (80-100) fL MCH (25-34) pg MCHC (32-36) g/dL RDW Std Deviation (36.4-46.3) fL RDW Coeff of Chetan (11.5-14.5) % Plt Count (130-400) K/uL MPV (7.4-10.4) fL Immature Gran % (Auto) % Neut % (Auto) % Lymph % (Auto) % [place] % (Auto) % Eos % (Auto) % Baso % (Auto) % Neut # (Auto) (1.4-6.5) K/uL Lymph # (Auto) (1.2-3.4) K/uL [place] # (Auto) (0.11-0.59) K/uL Eos # (Auto) (0-0.5) K/uL Baso # (Auto) (0-0.2) K/uL Immature Gran # (Auto) (0.00-0.02) K/uL PT (9.0-12.0) Seconds INR (0.9-1.1) Sodium (136-145) mmol/L Potassium (3.5-5.1) mmol/L Chloride (98-107) mmol/L Carbon Dioxide (21-32) mmol/L Anion Gap (3-11) BUN (6-23) mg/dl Creatinine (0.6-1.2) mg/dl Est Cr Clr Drug Dosing ml/min Est GFR ( Amer) ml/min Est GFR (Non-Af Amer) ml/min BUN/Creatinine Ratio (10-20) Glucose (70-99(Fasting)) mg/dl Lactate 2.1 H* 1.9 (0.4-2.0) mmol/L Calcium (8.5-10.1) mg/dl Magnesium (1.7-2.4) mg/dl Total Bilirubin (0.2-1.0) mg/dl AST (13-39) U/L ALT (7-52) U/L Alkaline Phosphatase (34-104) U/L Troponin I (0-0.04) ng/ml Total Protein (6.0-8.3) gm/dl Albumin (3.4-5.0) gm/dl Globulin (2.5-4.0) gm/dl Albumin/Globulin Ratio (0.9-2) Lipase (11-82) U/L SARS-CoV-2, RNA, NAAT (NEGATIVE) Blood Type A Positive Antibody Screen NEGATIVE 04/05/21 Range/Units 04:54 WBC (4.8-10.8) K/uL RBC (4.2-5.4) M/uL Hgb (12.0-16.0) g/dL Hct (37-47) % MCV (80-100) fL MCH (25-34) pg MCHC (32-36) g/dL RDW Std Deviation (36.4-46.3) fL RDW Coeff of Chetan (11.5-14.5) % Plt Count (130-400) K/uL MPV (7.4-10.4) fL Immature Gran % (Auto) % Neut % (Auto) % Lymph % (Auto) % [place] % (Auto) % Eos % (Auto) % Baso % (Auto) % Neut # (Auto) (1.4-6.5) K/uL Lymph # (Auto) (1.2-3.4) K/uL [place] # (Auto) (0.11-0.59) K/uL Eos # (Auto) (0-0.5) K/uL Baso # (Auto) (0-0.2) K/uL Immature Gran # (Auto) (0.00-0.02) K/uL PT (9.0-12.0) Seconds INR (0.9-1.1) Sodium (136-145) mmol/L Potassium (3.5-5.1) mmol/L Chloride (98-107) mmol/L Carbon Dioxide (21-32) mmol/L Anion Gap (3-11) BUN (6-23) mg/dl Creatinine (0.6-1.2) mg/dl Est Cr Clr Drug Dosing ml/min Est GFR ( Amer) ml/min Est GFR (Non-Af Amer) ml/min BUN/Creatinine Ratio (10-20) Glucose (70-99(Fasting)) mg/dl Lactate (0.4-2.0) mmol/L Calcium (8.5-10.1) mg/dl Magnesium (1.7-2.4) mg/dl Total Bilirubin (0.2-1.0) mg/dl AST (13-39) U/L ALT (7-52) U/L Alkaline Phosphatase (34-104) U/L Troponin I (0-0.04) ng/ml Total Protein (6.0-8.3) gm/dl Albumin (3.4-5.0) gm/dl Globulin (2.5-4.0) gm/dl Albumin/Globulin Ratio (0.9-2) Lipase (11-82) U/L SARS-CoV-2, RNA, NAAT NEGATIVE (NEGATIVE) Blood Type Antibody Screen Imaging Data Radiologist's Impression: Abdomen/Pelvis CT 04/05/21 00:[address] WITH IV CONTRAST CT DOSE: 403.89 mGy.cm HISTORY: Acute generalized abdominal pain with possible GI bleed. History of cirrhosis abd pain , gi bleed TECHNIQUE: Multiaxial CT images of the abdomen and pelvis were performed following the IV administration of 94 cc of Optiray, A dose lowering technique was utilized adhering to the principles of ALARA. COMPARISON STUDY: CT abdomen and pelvis March 11, 2021 FINDINGS: The imaged inferior cardiac chambers are unremarkable. Mild right hemidiaphragmatic elevation. Mild linear subsegmental right basilar atelectasis/scarring. Clear left lung base. There is no pneumatosis or pneumop eritoneum. The spleen, mildly atrophic pancreas and adrenal glands are unremarkable. The gallbladder appears surgically absent. Mild prominence of the extrahepatic biliary tree is likely postsurgical. Hepatic steatosis with cirrhosis and mild upper abdominal varices. Recanalization of the umbilical vein. No hepatic mass identified. 4 mm nonobstructing calculus of the inferior pole left kidney. No ureteral calculi or hydronephrosis. Partial distention of the urinary bladder. Hysterectomy. No adnexal mass lesion. Aorta and IVC are unremarkable. No adenopathy. Prior Jeffy-en-Y gastric bypass. Postoperative changes of the right hemicolon. No bowel obstruction or bowel wall thickening. Streak artifact from the battery pack the right anterior abdominal wall. A single lead projects over the lower lumbar right paraspinal tissues. Resolution of the previously described abdominal pelvic ascites. There is mild generalized mesenteric edema. ORIF c hanges of the proximal left femur. Chronic sacral fracture deformity. Healed chronic bilateral rib fractures. Unchanged thoracolumbar compression deformities. IMPRESSION: 1. No bowel obstruction or bowel wall thickening. 2. Hepatic steatosis with cirrhosis and stigmata of portal venous hypertension. There is resolution of the previously noted abdominal pelvic ascites. 3. Nonobstructing left nephrolithiasis. No ureteral calculi or hydronephrosis. 4. Chronic and postoperative changes as above. ACT 112: Negative or not required by law. The above report was generated using voice recognition software. It may contain grammatical, syntax or spelling errors. Electronically signed by: Fredy Matos M.D. 04/05/2021 7:[address] abdomen and pelvis with contrast: Limited evaluation in the absence of multiphasic imaging. Consider multiphasic imaging or skin to graphic imaging if there is further concern for gastrointes tinal hemorrhage. Additional limitation given lack of oral contrast. Right hemicolectomy changes with dilated proximal colon measuring up to 8.7 cm. No evidence of upstream bowel obstruction. Gastric bypass changes. Hysterectomy changes. Cholecystectomy changes. Radiologist: Zacarias Ellington MD ECG Data Attestation: I personally reviewed and interpreted this ECG as follows: Indication: + weakness Rate (beats per minute): 105 Rhythm: + sinus tachycardia ECG Intervals/blocks: + Normal QRS and + Normal QT ECG [place]: + Normal ECG ST segments: + Nonspecific ST abnormalities MDM Narrative This is a 56-year-old female presents emerged part complaining abdominal pain and GI bleed. Patient well-known to the department and has previously been here frequently with similar events. Patient with history of alcohol abuse and recurrent episodes of GI bleed for various reasons. Patient reported hematemesis as well as hematochezia. Patient was afebrile and hemodynamically stable on arrival, mild tachycardia was noted. Labs are drawn and sent, IV flu ids started as well as Protonix bolus and drip. Banana bag added at maintenance rate. Patient's H&H appears stable compared to prior and she does have a chronic anemia. CT of the abdomen pelvis was reassuring. Patient was not on any antiplatelet or anticoagulation therapy. Patient did have 1 bloody bowel movement here that was heme positive on bedside testing. No recurrent hematemesis. She remained hemodynamically stable with mild tachycardia. Ativan was ordered as needed in case of alcohol withdrawal which is a risk given patient's ongoing abuse. Patient awake and oriented throughout, no evidence of encephalopathy. Patient was not only risk for alcohol withdrawal but ongoing GI bleed due to history of varices and gastric ulcer. Case discussed with hospitalist for additional monitoring and observation. At this time I do not feel patient requires an urgent blood transfusion. Decision regarding octreotide drip deferred to hospitalist as patient appeared stable here and had no recurrent hematemesis. She was given IV Rocephin. Hypomagnesemia repleted while in the emergency room. An order was placed for continuous cardiac monitoring. The monitor shows a rate of _105__ with _sinsu tachycardia_ rhythm. Impression & Plan Abdominal pain, Alcoholic cirrhosis, Anemia, Acute GI bleeding, Alcohol abuse, Non-compliance, Hypomagnesemia Discharge Plan Visit Data Chief Complaint: Vomiting Stated Complaint: [facility] - BLOODY ED Provider: Sasha Everett Discharge Problem: Abdominal pain, Alcoholic cirrhosis, Anemia, Acute GI bleeding, Alcohol abuse, Non-compliance, Hypomagnesemia Patient Disposition: Transfer Acute Care Hospital Discharge Instructions Interventions: ED Discharge Assessment Last Done: 04/05/21 07:52
[2021-04-05 00:57] LABS: Basophils # (auto) 0.04 K/uL (0-0.2); Basophils % (auto) 1.3 %; Hemoglobin 10.7 g/dL (12.0-16.0); Immature Granulocytes # (auto) 0.01 K/uL (0.00-0.02); Immature Granulocytes % (auto) 0.3 %; Lymphocytes # (auto) 0.49 K/uL (1.2-3.4); Lymphocytes % (auto) 15.3 %; Mean Corpuscular Hemoglobin 28.9 pg (25-34); Mean Corpuscular Hgb Conc 32.4 g/dL (32-36); Mean Corpuscular Volume 89.2 fL (80-100); Mean Platelet Volume 9.5 fL (7.4-10.4); Monocytes % (auto) 6.3 %; Neutrophils # (auto) 2.46 K/uL (1.4-6.5); Neutrophils % (auto) 76.8 %; Platelet Count 113 K/uL (130-400); RDW Coefficient of Variation 18.7 % (11.5-14.5); RDW Standard Deviation 60.4 fL (36.4-46.3)
[2021-04-05 01:07] LABS: INR 1.2 (0.9-1.1); Prothrombin Time 12.4 Seconds (9.0-12.0)
[2021-04-05 01:14] LABS: Alanine Aminotransferase 20 U/L (7-52); Albumin Globulin Ratio 0.8 (0.9-2); Albumin Level 3.6 gm/dl (3.4-5.0); Alkaline Phosphatase 298 U/L (34-104); Anion Gap 12 (3-11); Aspartate Aminotransferase 55 U/L (13-39); BUN Creatinine Ratio 20.9 (10-20); Bilirubin,Total 2.1 mg/dl (0.2-1.0); Blood Urea Nitrogen 9 mg/dl (6-23); Calcium 8.5 mg/dl (8.5-10.1); Carbon Dioxide 22 mmol/L (21-32); Chloride 99 mmol/L (98-107); Creatinine Clr Calc Pharmacy 118.5 ml/min; Est GFR (African American) 130.9 ml/min; Est GFR (Non-African American) 112.9 ml/min; Globulin 4.4 gm/dl (2.5-4.0); Glucose 118 mg/dl (70-99(Fasting)); Lipase 11 U/L (11-82); Magnesium 1.6 mg/dl (1.7-2.4); Potassium 4.3 mmol/L (3.5-5.1); Sodium 133 mmol/L (136-145); Troponin I < 0.03 ng/ml (0-0.04)
[2021-04-05] MEDS ORDERED: MULTI-VITAMIN INFUSION 10 ML, THIAMINE HCL 100 MG, FOLIC ACID 1 MG in SODIUM CHLORIDE 0... IV ONE (01:17)
[2021-04-05] MEDS ORDERED: cefTRIAXone SODIUM 1,000 MG/50 ML BAG IV STA (01:17)
[2021-04-05] MEDS ORDERED: MAGNESIUM SULFATE / D5W 1 GM/100 ML BAG IV STA (01:17)
[2021-04-05] MEDS: PANTOprazole 40 MG in DEXTROSE 5% 100 ML IV SCH ×4 (01:40→18:16)
[2021-04-05] MEDS ORDERED: OPTIRAY 320 100ml IV ONE (02:30)
[2021-04-05] MEDS ORDERED: ACETAMINOPHEN 1,000 MG/100 ML VIAL IV STA (03:41)
[2021-04-05] MEDS ORDERED: LORazepam 1 MG/2 ML VIAL IV PRN ×2 (04:41→07:51)
[2021-04-05] MEDS ORDERED: OCTREOTIDE ACETATE 50 MCG in SYRINGE 9.5 ML IV STA (05:43)
[2021-04-05] MEDS ORDERED: STAT IV STA (05:43)
[2021-04-05] MEDS ORDERED: GABAPENTIN 1200MG ALCOHOL WITHDRAWAL LOAD PO STA (05:43)
[2021-04-05] MEDS ORDERED: GABAPENTIN 600 MG TAB PO STA (06:00)
--- NOTE | 2021-04-05 07:40 | CT Scan Report ---
ABDOMEN AND PELVIS CT WITH IV CONTRAST CT DOSE: 403.89 mGy.cm HISTORY: Acute generalized abdominal pain with possible GI bleed. History of cirrhosis abd pain , gi bleed TECHNIQUE: Multiaxial CT images of the abdomen and pelvis were performed following the IV administrat ion of 94 cc of Optiray, A dose lowering technique was utilized adhering to the principles of ALARA. COMPARISON STUDY: CT abdomen and pelvis March 11, 2021 FINDINGS: The imaged inferior cardiac chambers are unremarkable. Mild right hemidiaphragmatic elevati on. Mild linear subsegmental right basilar atelectasis/scarring. Clear left lung base. There is no pn eumatosis or pneumoperitoneum. The spleen, mildly atrophic pancreas and adrenal glands are unremarkab le. The gallbladder appears surgically absent. Mild prominence of the extrahepatic biliary tree is li shawn postsurgical. Hepatic steatosis with cirrhosis and mild upper abdominal varices. Recanalization of the umbilical vein. No hepatic mass identified. 4 mm nonobstructing calculus of the inferior pole left kidney. No ureteral calculi or hydronephrosis. Partial distention of the urinary bladder. Hysterectomy. No adnexal mass lesion. Aorta and IVC are u nremarkable. No adenopathy. Prior Jeffy-en-Y gastric bypass. Postoperative changes of the right hemicolon. No bowel obstruction or bowel wall thickening. Streak artifact from the battery pack the right anterior abdominal wall. A si ngle lead projects over the lower lumbar right paraspinal tissues. Resolution of the previously descr ibed abdominal pelvic ascites. There is mild generalized mesenteric edema. ORIF changes of the proxim al left femur. Chronic sacral fracture deformity. Healed chronic bilateral rib fractures. Unchanged t horacolumbar compression deformities. IMPRESSION: 1. No bowel obstruction or bowel wall thickening. 2. Hepatic steatosis with cirrhosis and stigmata of portal venous hypertension. There is resolution o f the previously noted abdominal pelvic ascites. 3. Nonobstructing left nephrolithiasis. No ureteral calculi or hydronephrosis. 4. Chronic and postoperative changes as above. ACT 112: Negative or not required by law. The above report was generated using voice recognition software. It may contain grammatical, syntax o r spelling errors. Electronically signed by: Fredy Matos M.D. 04/05/2021 7:38 AM
[2021-04-05] MEDS ORDERED: ATIVAN IV ALCOHOL WITHDRAWL IV PRN (07:51)
[2021-04-05] MEDS ORDERED: LOPERAMIDE HCL 2 MG CAP PO PRN (07:51)
[2021-04-05] MEDS ORDERED: SODIUM CHLORIDE 0.9% 1000ML 1,000 ML IV SCH (07:51)
[2021-04-05] MEDS ORDERED: ONDANSETRON INJ 2 MG/ML 2 ML VIAL IV PRN (07:51)
[2021-04-05] MEDS ORDERED: NITROGLYCERIN SL 0.4 MG/TAB TAB SL PRN (07:51)
[2021-04-05] MEDS ORDERED: traZODone HCL 50 MG TAB PO PRN (07:51)
[2021-04-05] MEDS ORDERED: LORazepam 3 MG/6 ML VIAL IV PRN (07:51)
[2021-04-05] MEDS ORDERED: DICYCLOMINE HCL 10 MG CAP PO PRN (07:51)
[2021-04-05] MEDS ORDERED: hydrOXYzine HCl 25 MG TAB PO PRN (07:51)
--- NOTE | 2021-04-05 08:25 | History and Physical Report ---
DATE OF SERVICE: 04/05/2021 CHIEF COMPLAINT: Hematemesis and melena. HISTORY OF PRESENT ILLNESS: A 56-year-old female with past medical history significant for hypothyroidism, history of end-stage liver disease, ongoing alcoholism, portal hypertension, esophageal varices without bleeding, chronic alcoholic gastritis, protein-calorie malnutrition, myalgia and myositis, osteopenia multiple sites, chronic pain, convulsions, neuropathy, pancytopenia, depression, insomnia, history of narcotic abuse, anxiety, who lives at home with her fiance says had several episodes of hematemesis and also black stools. Currently, she has not vomited any blood in the ER. Hemoglobin is stable at 10.7. Hemodynamically stable, complaining a lot of abdominal pain, complains of headache, some dizziness, no blurred visions, no runny nose, no sore throat, no cough, no fevers, no chest pain or shortness of breath. Normal bladder movements. She says she is ambulating okay. She says she is still drinking 6 beers every day. Denies any smoking or drugs. ALLERGIES: DIPHENHYDRAMINE, BUPROPION, CLARITHROMYCIN, ASPIRIN, OXAPROZIN, SALICYLATES. PAST MEDICAL HISTORY: As mentioned above. PAST SURGICAL HISTORY: Colonoscopy, EGDs, ERCP, gastric bypass for obesity, laparoscopic surgical gastrostomy, laparoscopic cholecystectomy, total abdominal hysterectomy with removal of tubes. MEDICATIONS: The patient is on citalopram 20 mg p.o. daily, colestipol 2 g p.o. b.i.d., dicyclomine 10 mg p.o. b.i.d. p.r.n., folic acid 1 mg p.o. a.m., furosemide 40 mg p.o. a.m., gabapentin 400 mg p.o. t.i.d., hydroxyzine 25 mg p.o. b.i.d. p.r.n., lidocaine patch transdermal a.m., Creon 1 capsule p.o. q.i.d., loperamide 2 mg p.o. q. 8 hours p.r.n., loratadine 5 mg p.o. t.i.d., Protonix 40 mg p.o. daily, riboflavin 100 mg p.o. daily, ropinirole 0.25 mg p.o. at bedtime, spironolactone 100 mg p.o. a.m., vitamin B1 100 mg p.o. a.m., trazodone 50 mg p.o. at bedtime p.r.n. FAMILY HISTORY: Significant for father has lung cancer, mother has stroke. SOCIAL HISTORY: . Former smoker. Drinks 6 beers every day as per Epic. Smokes marijuana. REVIEW OF SYSTEMS: As per HPI. Rest of review of systems is negative. PHYSICAL EXAMINATION: GENERAL: The patient is of moderate build, not in acute distress. VITAL SIGNS: Temperature 37, pulse 103, respiratory rate 17, blood pressure 127/65, oxygen 97% on room air. HEENT: Pupils equal, round and reactive to light. Oral mucosa moist. NECK: No JVD. No neck masses. CARDIOVASCULAR: S1 and S2 heard. Tachycardia. No murmurs. RESPIRATORY SYSTEM: Normal AP diameter. No accessory muscle use. No wheezing, no crackles. ABDOMEN: Soft, bowel sounds present, diffuse tenderness, mild guarding, no rigidity, no distention. CENTRAL NERVOUS SYSTEM: Cranial nerves II-XII grossly intact, nonfocal. EXTREMITIES: No edema, no erythema seen. LABORATORY DATA: WBC 3.0, hemoglobin 10.7, hematocrit 33, platelets 113. PT 12.4, INR 1.2. Sodium 133, potassium 4.3, chloride 99, bicarb 22, BUN 9, creatinine 0.4, serum glucose 118. Lactate was 2.1, repeat is 1.9, calcium 8.5, magnesium 1.6, total bilirubin 2.1, AST 54, ALT 20, alkaline phosphatase 298. Troponin I less than 0.03. Lipase 11. SARS-CoV-2 negative. IMAGING DATA: CT of abdomen and pelvis preliminary report right hemicolectomy changes with dilated proximal colon measuring up to 8.7 cm. No evidence of upstream bowel obstruction, hysterectomy changes, cholecystectomy changes. EKG: Sinus tachycardia at 105, nonspecific T-wave abnormalities. ASSESSMENT AND PLAN: A 56-year-old female who presents with ongoing alcoholism, presents with hematemesis and melena. 1. Hematemesis and melena. Hemoglobin is stable at 10.7, history of esophageal varices, liver cirrhosis. Started on Protonix drip and Sandostatin drip. Blood consent obtained, H and H q. 6 hours n.p.o., gentle IV fluids, normal saline 50 mL per hour and monitor in tele floor. Consult GI for further recommendations.Received Rocephin in ER which will be continued.. 2. Alcoholism, history of admission for alcoholism in the past.received banana bag in the ER, placed on IV thiamine, IV folic acid, gabapentin per protocol with IV Ativan p.r.n. Closely monitor for withdrawal symptoms. 3. Alcoholic liver cirrhosis: Continue midodrine. Holding Lasix and spironolactone as the patient has GI bleed. The patient is not on any lactulose. We will monitor for any volume overload. 4. Restless legs syndrome, on ropinirole. 5. Hypomagnesemia. replaced by ER. will follow labs. 6. Pancytopenia. We will follow the labs. 7. History of gastric bypass, needs followup. 7. Deep venous thrombosis prophylaxis: Sequential compression devices. DISPOSITION: Closely monitor in tele floor. Level 1 full code. Expect to discharge home and follow with family doctor. Job ID: [id number] [facility] [facility]
[2021-04-05] MEDS ORDERED: LIDOCAINE 5% 1 PATCH TD SCH (09:00)
[2021-04-05] MEDS ORDERED: THIAMINE HCL 100 MG in SYRINGE 9 ML IV SCH (09:00)
[2021-04-05] MEDS ORDERED: FOLIC ACID 1 MG in SYRINGE 9.8 ML IV SCH (09:00)
[2021-04-05] MEDS ORDERED: CITALOPRAM 20 MG TAB PO SCH (09:00)
[2021-04-05] MEDS ORDERED: GABAPENTIN 600 MG TAB PO ONE (09:00)
[2021-04-05] MEDS: OCTREOTIDE ACETATE 500 MCG in DEXTROSE 5% 100 ML IV SCH ×2 (09:32→18:17)
[2021-04-05] MEDS: MIDODRINE HCL 2.5 MG TAB PO SCH ×3 (09:33→20:32)
[2021-04-05] MEDS: COLESTIPOL HCL 1 GM TAB PO SCH ×2 (09:33→20:33)
[2021-04-05] MEDS: PANCREAZE (LIPASE 10,500U) CAP PO SCH ×4 (09:34→20:31)
[2021-04-05 11:19] LABS: Hematocrit (blood only) 29.3 % (37-47); Hemoglobin 9.5 g/dL (12.0-16.0)
--- NOTE | 2021-04-05 11:27 | Electrocardiogram Report ---
Test Reason : Blood Pressure : / mmHG Vent. Rate : 105 BPM Atrial Rate : 105 BPM P-R Int : 172 ms QRS Dur : 086 ms QT Int : 346 ms P-R-T Axes : 055 -21 065 degrees QTc Int : 457 ms Sinus tachycardia Low voltage QRS Borderline ECG When compared with ECG of 06-FEB-2021 20:49, Criteria for Anterior infarct are no longer Present Criteria for Anterolateral infarct are no longer Present Nonspecific T wave abnormality has replaced inverted T waves in Lateral leads Confirmed by Thee Zimmer ([id number]) on 04/05/2021 11:27:22 AM Referred By: REFERRED SELF Confirmed By:Thee Zimmer
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
--- NOTE | 2021-04-05 13:25 | Hospitalist Progress Note ---
Date of Service April 05, 2021 Assessment & Plan (1) GI bleed: Plan: ASSESSMENT AND PLAN: A 56-year-old female who presents with ongoing alcoholism, presents with hematemesis and melena. per Dr. Aguilera's notes with addendum: 1. Hematemesis and melena. Hemoglobin is stable at 10.7, history of esophageal varices, liver cirrhosis. Started on Protonix drip and Sandostatin drip. Blood consent obtained, H and H q. 6 hours n.p.o., gentle IV fluids, normal saline 50 mL per hour and monitor in tele floor. Consult GI for further recommendations.Received Rocephin in ER which will be continued.. 04/05 Hg 10.7 to 9.[address] Guerrero recommending transfer to [facility] for IR treatment of probable gastric artery bleeding discussed with [facility]- patient accepted continue Protonix, Octreotide drips 2. Alcoholism - no signs of alcohol withdrawal continue Gabapentin protocol, PRN Ativan 3. Alcoholic liver cirrhosis: Continue midodrine. Holding Lasix and spironolactone as the patient has GI bleed. - appears to be compensated 4. Restless legs syndrome, on ropinirole. 5. Hypomagnesemia. Mg 1.6 repleted 6. Pancytopenia follow CBC 7. History of gastric bypass, needs followup. 7. Deep venous thrombosis prophylaxis: Sequential compression devices. Disposition transfer to [facility] plan of care discussed with patient in detail and at length all questions answered she is understanding, agreeable, comfortable with the plan of care Admission and Anticipated Discharge Date Admission Date: April 05, 2021 Subjective ff up for GI bleed, etc seen resting in bed, sleeping but easily awakened oriented x 3 answering questions appropriately states she feels about the same- weak reports epigastric pain- burning no nausea/vomiting no chest pain, dyspnea, palpitations, dizziness no anxiety, tremors, hallucinations no other symptoms Review of Systems Review of Systems: all noted and negative except for above Physical Exam Physical Exam: General- oriented x 3, not in distress, speaks in sentences with no effort or accessory muscle use appears weak/drowsy Head- atraumatic Eyes- PERRL, EOMI, anicteric ENT- oropharynx clear Neck- supple, no JVD, no adenopathy, no thyromegaly; carotids +2/2, no bruits appreciated Lungs- clear to auscultation bilaterally, no rales/wheezes Heart- normal rate, regular rhythm; no murmur, no gallop, no rub appreciated Abdomen- normal bowel sounds, nondistended, soft, (+ )mild epigastric tenderness Extremities- no pretibial edema, no calf tenderness; peripheral pulses intact Neuro- alert, oriented x 3; CN 2-12 grossly intact; motor 5/5 bilaterally;sensation 100% on all extremities; no other gross focal neurologic deficits Skin- warm & dry Results & Data Results & [facility]) Vital Signs (Past 12 Hours) Vital Signs Pulse Resp BP Pulse Ox 04/05/21 11:28 113 H 16 108/71 98 04/05/21 07:41 111 H 15 108/60 97 04/05/21 07:25 103 H 19 111/69 95 04/05/21 06:00 111 H 20 119/78 98 04/05/21 04:00 103 H 17 127/65 97 04/05/21 02:46 113 H 20 119/77 96 all noted and reviewed including below
[2021-04-05] MEDS: LORazepam 2 MG/4 ML VIAL IV PRN ×2 (14:06→20:21)
[2021-04-05] MEDS: GABAPENTIN 600 MG TAB PO SCH ×2 (14:06→20:21)
--- NOTE | 2021-04-05 16:23 | Discharge Summary ---
Date of Service April 05, 2021 Admission HPI Per Admitting Provider HISTORY OF PRESENT ILLNESS: A 56-year-old female with past medical history significant for hypothyroidism, history of end-stage liver disease, ongoing alcoholism, portal hypertension, esophageal varices without bleeding, chronic alcoholic gastritis, protein-calorie malnutrition, myalgia and myositis, osteopenia multiple sites, chronic pain, convulsions, neuropathy, pancytopenia, depression, insomnia, history of narcotic abuse, anxiety, who lives at home with her fiance says had several episodes of hematemesis and also black stools. Currently, she has not vomited any blood in the ER. Hemoglobin is stable at 10.7. Hemodynamically stable, complaining a lot of abdominal pain, complains of headache, some dizziness, no blurred visions, no runny nose, no sore throat, no cough, no fevers, no chest pain or shortness of breath. Normal bladder movements. She says she is ambulating okay. She says she is still drinking 6 beers every day. Denies any smoking or drugs. Admission Exam (Per Admitting) Constitutional GENERAL: The patient is of moderate build, not in acute distress. VITAL SIGNS: Temperature 37, pulse 103, respiratory rate 17, blood pressure 127/65, oxygen 97% on room air. HEENT: Pupils equal, round and reactive to light. Oral mucosa moist. NECK: No JVD. No neck masses. CARDIOVASCULAR: S1 and S2 heard. Tachycardia. No murmurs. RESPIRATORY SYSTEM: Normal AP diameter. No accessory muscle use. No wheezing, no crackles. ABDOMEN: Soft, bowel sounds present, diffuse tenderness, mild guarding, no rigidity, no distention. CENTRAL NERVOUS SYSTEM: Cranial nerves II-XII grossly intact, nonfocal. EXTREMITIES: No edema, no erythema seen. Discharge Data Consultations 04/05/21 04:41 ED Decision to Admit Stat 04/05/21 08:00 Consult Gastroenterology Routine Hospital Course (1) GI bleed: ASSESSMENT AND PLAN: A 56-year-old female who presents with ongoing alcoholism, presents with hematemesis and melena. per Dr. Aguilera's notes with addendum: 1. Hematemesis and melena. Hemoglobin is stable at 10.7, history of esophageal varices, liver cirrhosis. Started on Protonix drip and Sandostatin drip. Blood consent obtained, H and H q. 6 hours n.p.o., gentle IV fluids, normal saline 50 mL per hour and monitor in tele floor. Consult GI for further recommendations.Received Rocephin in ER which will be continued.. 2/20 Hg 10.7 to 9.[address] Guerrero recommending transfer to [facility] for IR treatment of probable gastric artery bleeding discussed with [facility]- patient accepted continue Protonix, Octreotide drips 2. Alcoholism - no signs of alcohol withdrawal continue Gabapentin protocol, PRN Ativan 3. Alcoholic liver cirrhosis: Continue midodrine. Holding Lasix and spironolactone as the patient has GI bleed. - appears to be compensated 4. Restless legs syndrome, on ropinirole. 5. Hypomagnesemia. Mg 1.6 repleted 6. Pancytopenia follow CBC 7. History of gastric bypass, needs followup. 7. Deep venous thrombosis prophylaxis: Sequential compression devices. Disposition transfer to [facility] plan of care discussed with patient in detail and at length all questions answered she is understanding, agreeable, comfortable with the plan of care
[2021-04-05 17:31] LABS: Hematocrit (blood only) 24.2 % (37-47); Hemoglobin 7.7 g/dL (12.0-16.0)
[2021-04-05] MEDS ORDERED: rOPINIRole HCL 0.25 MG TABLET PO SCH (21:00)
[2021-04-06] MEDS ORDERED: GABAPENTIN 600 MG TAB PO SCH (03:45)
[2021-04-06] MEDS ORDERED: cefTRIAXone SODIUM 1,000 MG in DEXTROSE 5% 50 ML IV SCH (05:00)
[2021-04-06] MEDS ORDERED: VITAMIN B COMPLEX TAB PO SCH (09:00)
[2021-04-07] MEDS ORDERED: GABAPENTIN 600 MG TAB PO SCH (07:45)
[2021-04-08] MEDS ORDERED: GABAPENTIN 600 MG TAB PO SCH (17:45)
== END 2021-04-05 21:30 | disposition short-term general hospital (02) ==
LOC: ED 23:47 → INTOOBSV 04-05 05:43 → EDINP 04-05 05:43

== ENCOUNTER 2021-05-26 12:54 | Inpatient (IN) ==
[2021-05-26] MEDS ORDERED: PANTOprazole 80 MG in DEXTROSE 5% 100 ML IV ONE (13:08)
[2021-05-26] MEDS ORDERED: cefTRIAXone SODIUM 1,000 MG/50 ML BAG IV STA (13:08)
[2021-05-26] MEDS ORDERED: PANTOPRAZOLE BOLUS/DRIP 1 EA IV STA (13:08)
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
[2021-05-26 13:48] LABS: INR 1.2 (0.9-1.1); Partial Thromboplastin Ratio 1.1; Partial Thromboplastin Time 30.4 Seconds (21.0-31.0); Prothrombin Time 12.7 Seconds (9.0-12.0)
[2021-05-26 13:57] LABS: Albumin Level 3.3 gm/dl (3.4-5.0); Bilirubin,Total 2.9 mg/dl (0.2-1.0); Calcium 7.7 mg/dl (8.5-10.1); Hematocrit (blood only) 24.1 % (37-47); Hemoglobin 7.5 g/dL (12.0-16.0); Mean Corpuscular Hgb Conc 31.1 g/dL (32-36); Mean Corpuscular Volume 80.3 fL (80-100); RDW Coefficient of Variation 19.7 % (11.5-14.5); RDW Standard Deviation 58.1 fL (36.4-46.3); White Blood Count 1.48 K/uL (4.8-10.8)
[2021-05-26 13:58] LABS: Potassium 2.4 mmol/L (3.5-5.1)
[2021-05-26 14:02] LABS: Albumin Globulin Ratio 0.9 (0.9-2); BUN Creatinine Ratio 14.3 (10-20); Creatinine Clr Calc Pharmacy 127.4 ml/min; Est GFR (Non-African American) 120.8 ml/min; Globulin 3.7 gm/dl (2.5-4.0)
[2021-05-26] MEDS ORDERED: SODIUM CHLORIDE 0.9% 250 ML IV PRN (14:02)
[2021-05-26 14:06] LABS: Troponin I High Sensitivity 5.2 pg/ml (0-14)
[2021-05-26] MEDS ORDERED: STAT IV STA (14:08)
[2021-05-26] MEDS ORDERED: OCTREOTIDE ACETATE 50 MCG in SYRINGE 9.5 ML IV STA (14:08)
[2021-05-26] MEDS ORDERED: OCTREOTIDE ACETATE 500 MCG in DEXTROSE 5% 100 ML IV SCH (14:15)
[2021-05-26] MEDS ORDERED: POTASSIUM CHLORIDE / WTR 10 MEQ/100 ML PLCT IV SCH ×3 (14:15→17:00)
[2021-05-26] MEDS: PANTOprazole 40 MG in DEXTROSE 5% 100 ML IV SCH ×2 (14:18→20:51)
[2021-05-26 14:28] LABS: Magnesium 1.4 mg/dl (1.7-2.4)
[2021-05-26 14:30] LABS: Mean Platelet Volume 10.3 fL (7.4-10.4); Platelet Count 65 K/uL (130-400)
[2021-05-26 14:32] LABS: Anisocytosis Present; Basophils # (auto) 0.04 K/uL (0-0.2); Basophils % (auto) 2.7 %; Eosinophils # (auto) 0.03 K/uL (0-0.5); Lymphocytes # (auto) 0.44 K/uL (1.2-3.4); Lymphocytes % (auto) 29.7 %; Monocytes # (auto) 0.19 K/uL (0.11-0.59); Monocytes % (auto) 12.8 %; Neutrophils # (auto) 0.78 K/uL (1.4-6.5); Neutrophils % (auto) 52.8 %; Platelet Estimate Decreased (Normal)
[2021-05-26] MEDS ORDERED: OPTIRAY 320 100ml IV ONE (14:48)
--- NOTE | 2021-05-26 15:07 | CT Scan Report ---
CT abd pelvis IV con only CLINICAL HISTORY: abd pain vomiting blood TECHNIQUE: Helical axial images of the abdomen and pelvis were obtained and displayed. Automated dose lowering techniques and/or adjustment according to patient size were utilized for this exam. This e xam was performed with intravenous contrast. COMPARISON: Comparison is made to CT abdomen pelvis 04/05/2021 FINDINGS: Lower chest: No acute abnormality Liver: Hepatic steatosis is noted. Gallbladder and biliary tree: Patient is status post cholecystectomy. No intra- or extrahepatic bilia ry ductal dilation. Pancreas: Pancreatic ductal dilation is seen, the duct measures 4 mm. Spleen: Unremarkable. Adrenals: Unremarkable. Kidneys and ureters: Nonobstructive nephrolithiasis is seen. Bladder: Unremarkable. Reproductive organs: Patient is status post hysterectomy. Bowel: Diffuse colonic wall thickening is seen, new from prior exam. Patient is status post Jeffy-en-Y gastric bypass and right hemicolectomy. Lymph nodes Retroperitoneal: Unremarkable. Mesenteric: Unremarkable. Pelvic: Unremarkable. Peritoneum: Moderate ascites is seen. Vessels: Unremarkable. Abdominal wall: Right fat-containing inguinal hernia. Bones: Left femoral kaylee is seen. Old compression deformity is seen in L2. Old healed rib and sacral f ractures are seen. Degenerative changes are seen in the spine. IMPRESSION: 1. Colonic wall thickening is seen which may represent infectious/inflammatory process. No evidence of bowel obstruction. 2. Interval development of moderate ascites. 3. Hepatic steatosis. ACT 112: Negative or not required by law. Electronically signed by: Roger Flores M.D. 05/26/2021 3:06 PM
[2021-05-26] MEDS ORDERED: MAGNESIUM SULFATE / D5W 1 GM/100 ML BAG IV SCH (15:19)
--- NOTE | 2021-05-26 15:24 | Communication Note ---
Date of Service: May 26, 2021 [facility] is assigned for unassigned ED. Called from the ED by Dr. Bossman Monzon. Pt presented with report of a large amt of Hematemesis this morning. RN in ED report small volume of bright red hematemesis after arrival. She is awake, hemodynamically stable and c/o epigastric pain. She reports drinking 5 beers yesterday. Seen with Dr. Allen. Also discussed with Dr. Vidal by phone. Reviewed records: UGI bleed here by Dr. Guerrero in Jan 2021 with distal esophageal varied and clotted blood in the stomach from Dieulafoy vs PHG with clips placed. Transferred for possible IR intervention- no intervention done. EGD Dr. Brown in [place] on : Oozing from clips in gastric pouch, injected, then spirting of blood concerning for a variceal bleed, likely GOV1 varies that were banded. Rec: IR, consider TIPS vs BRTO- no intervention done. Brief PE: + awake, alert, + epigastric tenderness BP 109/60, HR 80, Ox sat 94% on 2L Labs: Pancytopenic, hyponatremic and hypokalemic. WBC 1.4, Hb 7.4, Hct 24, Plts 65, Na 127, Na 2.4, BUN 5, Cr 0.35, glucose 98. T Bili 1.9, INR1.1 CTAP: Colonic wall thickening is seen which may represent infectious/inflammatory process. No evidence of bowel obstruction. Interval development of moderate ascites. Hepatic steatosis. Transfer for consideration for IR embolization or TIPS procedure for tx or BRTRO prevention of future GI bleeding as this is recurrent. Spoke with the transfer center in [place] including Dr. Brunson, Interventional Radiologist in and Dr. Reveles, ED triage physician. They agreed to accept ED to ED transfer of the pt with intention of IR embolization. Plan is via ambulance. This was discussed with Dr. Monzon. Agree with above - overall given concerns for reports of hematemesis and prior endoscopic workup done at [facility] and in [place], concern is for possible bleeding from GOV1 that appears to be recurrent even after banding a little over 1 month ago in [place]. She appears hemodnyamically stable currently without overt evidence of active gi bleeding (no hematemesis while GI was seeing her in the er room or smell of melena, bun is also normal). Given her na and k are low - replacement will be done, empiric octreotide, protonix, iv ceftriaxone have been initiated and [place] [facility] has also been initiated. It was re-emphasized to her the importance of abstinence from alcohol. Current MELD is 21 with pancytopenia noted (present during her admission to [facility] in 04/07).
[2021-05-26 15:30] LABS: Appearance Urine Clear (Clear); Bilirubin Urine Negative (Negative); Blood Urine Negative (Negative); Color Urine Yellow; Glucose Urine UA Negative (Negative); Ketones Urine Negative (Negative); Leukocyte Esterase Urine Negative (Negative); Nitrite Urine Negative (Negative); Protein Urine Negative (Negative); Specific Gravity Urine 1.009 (1.000-1.030); Urobilinogen Urine Negative (Negative)
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
[2021-05-26] MEDS ORDERED: OCTREOTIDE BOLUS FROM BAG IV ONE (16:45)
[2021-05-26] MEDS ORDERED: GABAPENTIN 1200MG ALCOHOL WITHDRAWAL LOAD PO STA (17:02)
[2021-05-26] MEDS ORDERED: GABAPENTIN 600 MG TAB PO ONE ×2 (17:15→18:30)
[2021-05-26] MEDS ORDERED: ONDANSETRON INJ 2 MG/ML 2 ML VIAL IV PRN (18:30)
[2021-05-26] MEDS ORDERED: GABAPENTIN 400 MG CAP PO SCH (18:30)
[2021-05-26] MEDS ORDERED: hydrOXYzine HCl 25 MG TAB PO PRN (18:30)
[2021-05-26] MEDS ORDERED: LOPERAMIDE HCL 2 MG CAP PO PRN (18:30)
[2021-05-26] MEDS ORDERED: FOLIC ACID 1 MG in SYRINGE 9.8 ML IV SCH (18:30)
[2021-05-26] MEDS ORDERED: LORazepam 2 MG/1 ML VIAL IV PRN ×4 (18:30→18:58)
[2021-05-26] MEDS ORDERED: THIAMINE HCL 100 MG in SYRINGE 9 ML IV SCH (18:30)
[2021-05-26] MEDS ORDERED: PANCREAZE (LIPASE 10,500U) CAP PO SCH (18:30)
[2021-05-26] MEDS ORDERED: ATIVAN IV ALCOHOL WITHDRAWL IV PRN (18:58)
[2021-05-26] MEDS ORDERED: MIDODRINE HCL 2.5 MG TAB PO SCH (19:00)
[2021-05-26] MEDS ORDERED: POTASSIUM CHLORIDE 20 MEQ/15 ML UDC PO STA (20:19)
[2021-05-26] MEDS ORDERED: rOPINIRole HCL 0.25 MG TABLET PO SCH (21:00)
[2021-05-26] MEDS ORDERED: COLESTIPOL HCL 1 GM TAB PO SCH (22:00)
--- NOTE | 2021-05-27 06:01 | Electrocardiogram Report ---
Test Reason : Blood Pressure : / mmHG Vent. Rate : 079 BPM Atrial Rate : 079 BPM P-R Int : 192 ms QRS Dur : 100 ms QT Int : 430 ms P-R-T Axes : 040 -16 025 degrees QTc Int : 493 ms Poor data quality, interpretation may be adversely affected Normal sinus rhythm Poor R wave progression, consider anterior DC vs. lead placement vs. LVH Abnormal ECG When compared with ECG of 05-APR-2021 00:48, Borderline criteria for Anterior infarct are now Present Confirmed by Roderick De Leon ([id number]) on 05/27/2021 6:01:36 AM Referred By: Confirmed By:Roderick De Leon
[2021-05-27] MEDS ORDERED: SPIRONOLACTONE 100 MG TAB PO SCH (09:00)
[2021-05-27] MEDS ORDERED: CITALOPRAM 20 MG TAB PO SCH (09:00)
[2021-05-27] MEDS ORDERED: cefTRIAXone SODIUM 1,000 MG in DEXTROSE 5% 50 ML IV SCH (09:00)
[2021-05-27] MEDS ORDERED: cefTRIAXone SODIUM 2,000 MG in DEXTROSE 5% 50 ML IV SCH (09:00)
[2021-05-27] MEDS ORDERED: GABAPENTIN 600 MG TAB PO SCH ×2 (14:00)
[2021-05-28] MEDS ORDERED: GABAPENTIN 600 MG TAB PO SCH (21:00)
[2021-05-29] MEDS ORDERED: GABAPENTIN 400 MG CAP PO SCH (17:00)
[2021-05-30] MEDS ORDERED: GABAPENTIN 600 MG TAB PO SCH (09:00)
--- NOTE | 2021-06-02 21:32 | Discharge Summary ---
Date of Service June 02, 2021 Admission HPI Per Admitting Provider This is a 56-year-old female who has significant past medical history of chronic alcohol abuse, end-stage liver disease, esophageal varices, portal hypertension, hypothyroidism, peripheral neuropathy, history of convulsions, depression, anxiety, RLS, history of narcotic abuse who presents to ED secondary to hematemesis x 1 day. Pt woke up this morning and had 3 episodes of large bright red emesis. She also complains of bloody bowel movements for 2 weeks. "I was hoping it would go away so I didn't tell anyone." She further complains of nausea, generalized abdominal pain that occasionally radiates around back. Cu rrently she denies N or abd pain. She denies f/c/s. She checks her temperature daily. She does complain of substernal chest pain that is no radiating for last several days. CP has not changed for better or worse. SHe denies dizziness, lighteadheaded She has not been taking lactulose due to hx of colitis and doesn't want diarrhea. She drinks alcohol daily, last drink was yesterday 4 beers. She typ donny has 4-6 beers a daily. She has hx of withdrawal in past including seizures. She continues to drink because she is in pain. She had hx of intrathecal pain pump, but currently isn't being used. In ED patient remained hemodynamically stable. Lab work revealed significant pancytopenia with H&H 7.5 and 21.1, platelets 65, absolute neutrophil count 1.78, INR 1.2, sodium 127, potassium 2.4, BUN 5, creatinine 0.35, mag 1.4, total bili 2.9, AST 107, alcohol 341.4. She was started on PPI bolus and drip as well as octreotide drip. Gastroenterology was consulted. Due to patient's prior history of GI bleeding as noted below GI is recommending transfer to tertiary center IR is immediately available. At this time it is recommended patient be transfused 1 unit PRBC and continue IV antibiotics for SBP prophylaxis. CT abdomen pelvis revealed colonic wall thickening which may represent infectious/inflammatory process, no evidence of SBO. Interval development of moderate ascites noted. Per ELANA Anne, GI Note, GIB hx as follows "UGI bleed here by Dr. Guerrero in Jan 2021 with distal esophageal varied and clotted blood in the stomach from Dieulafoy vs PHG with clips placed. Transf erred for possible IR intervention- no intervention done. EGD Dr. Brown in [place] on : Oozing from clips in gastric pouch, injected, then spirting of blood concerning for a variceal bleed, likely GOV1 varies that were banded. Rec: IR, consider TIPS vs BRTO- no intervention done." Principal Diagnosis GI Bleeding Discharge Exam NAD, mildly cachectic Lungs: CTA, no wheezing or crackles Card: Normal S1/S2, no murmur Abd: mildly distended, diffuse TTP, soft MSk: no LE edema Psych: AAOx3, normal affect Discharge Data Allergies Allergy/AdvReac Type Severity Reaction Status Date / Time diphenhydramine Allergy Severe seizures/it Verified 05/26/21 15:46 mya/tremo rs bupropion Allergy Intermediate Palpitation Verified 05/26/21 15:46 s clarithromycin Allergy Intermediate HIVES Verified 05/26/21 15:46 aspirin Allergy Mild hives/ringing Verified 05/26/21 15:46 of ears oxaprozin Allergy Mild nausea/vomi Verified 05/26/21 15:46 ting salicylates Allergy Mild ringing in Verified 05/26/21 15:46 ears/hives Ordered Studies 05/26/21 13:08 CT abd pelvis IV con only Stat Hospital Course (1) Acute GI bleeding: (2) Alcohol abuse: (3) Cirrhosis: (4) Portal hypertensive gastropathy: (5) Esophageal varices: (6) Hypokalemia: (7) Hypomagnesemia: (8) Pancytopenia: (9) Increased anion gap metabolic acidosis: This is a 56-year-old female who has significant past medical history of chronic alcohol abuse, end-stage liver disease, esophageal varices, portal hypertension, hypothyroidism, peripheral neuropathy, history of convulsions, depression, anxiety, RLS, history of narcotic abuse who presents to ED secondary to hematemesis x 1 day. Acute Upper GI bleeding Hematemesis x1 day Melena x2 weeks Cirrhosis Acute on chronic anemia secondary to GI blood loss Patient currently has been accepted for transfer to [facility] and approximate wait time is 24 hours for bed availability Patient with prior history of GI bleeding Dieulafoy vs PHG, concern for varices GI feels tertiary center warranted to consider TIPS vs BRTO Stabilize, transfuse 1 unit PRBC continue PPI gtt, Ocretotide gtt 1g IV rocephin for SBP ppx H/H @ 2100 currently hemodynamically stable Electrolyte derangements Increased anion gap metabolic acidosis secondary to alcohol K2.4, to receive a total of 40 M EQ KCl IV in ED Mag 1.4, 2 g mag sulfate ordered Na 127 2/2 to alcohol abuse, follow Repeat BMP at 2100, will need more potassiums supplementation, avoiding oral supplementation for now secondary to GI bleeding Ascites continue IV rocephin will need addressed at tertiary Pancytopenia with profound neutropenia No fever Chronic, secondary to alcohol abuse baseline hemoglobin 9-10, Current hgb 7.5 Alcohol abuse Tobacco abuse ETOH level > 300 on admission, drinks 4-6 beers daily hx of significant w/drawal with seizure in past AWSS protocol, gabapentin taper, prn ativan IV thiamine and folic acid daily DVT ppx: SCD/TEDS Dispo: PCU, accepted to [facility], awaiting bed FULL CODE PCP: Nita Pt was seen and examined in collaboration with Dr. Alatorre, please see addendum Total Time Total Time Spent Total Time Spent (In Minutes): 30 Discharge Plan Discharge Items Patient Disposition: Transfer Acute Care Hospital Reason For Visit: UGIB Discharge Diagnosis: GI bleeding Condition on Discharge: Fair Activity: As commented below Activity Comment: Pt was discharged to [facility] Non-emergency contact: Primary Care Provider Call non-emergency contact if: you have any medication questions Follow-up/Referrals: Filiberto Moya [Primary Care Provider] - Diet: Other - See Diet Comment Diet Comment: Pt was NPO before the transfer Addtl Attending Provider Instructions: Pt was transferred to [facility] for higher level of care Pending Studies at Discharge: No Skilled Items Patient informed of condition?: Yes DNR: No Discharge Level of Care: Other Communicable Disease: No Discharge Prognosis: Stable Lines: Peripheral IV Urinary Catheter: No Medications and DC Order Prescriptions: Continued loperamide 2 mg capsule 2 mg PO Q8H PRN (Reason: Diarrhea) RF: 0 citalopram [Celexa] 10 mg Tablet 20 mg PO DAILY 30 Days Qty: 60 RF: 0 colestipol 1 gram Tablet 2 g PO BID 30 Days Qty: 120 RF: 0 hydroxyzine HCl 25 mg tablet 25 - 50 mg PO BID PRN (Reason: Anxiety) RF: 0 ropinirole 0.25 mg tablet 0.25 mg PO HS RF: 0 midodrine 5 mg tablet 5 mg PO TID Qty: 90 RF: 2 Creon 36,000-114,000- 180,000 unit Capsule,Delayed Release(Dr/Ec) 1 cap PO QID Qty: 120 RF: 2 gabapentin 400 mg capsule 400 mg PO QID RF: 0 furosemide 40 mg tablet 40 mg PO BID RF: 0 spironolactone 100 mg tablet 100 mg PO DAILY RF: 0 omeprazole 40 mg capsule,delayed release(DR/EC) 40 mg PO DAILY RF: 0 lidocaine 5 % adhesive patch,medicated 1 patch transdermal QAM PRN (Reason: Pain) RF: 0 lactulose 10 gram/15 mL solution 30 ml PO TID RF: 0 Discharge Orders: Discharge Order (Routine); Ordered 06/02/21 Ordered By: Abran Alatorre Admission Data Admit Date/Time: 05/26/21 16:11 Attending Provider: Abran Alatorre Admit Provider: Abran Alatorre Primary Care Provider: Filiberto Moya Other Interventions: Discharge Summary Assessment (RN) Last Done: 05/26/21 21:34
== END 2021-05-26 21:15 | disposition short-term general hospital (02) | DRG 377 ==
LOC: ED 12:54 → 2S 16:11
DX: K76.0 Fatty (change of) liver, not elsewhere classified; K76.6 Portal hypertension; G62.9 Polyneuropathy, unspecified; E03.9 Hypothyroidism, unspecified; Z88.6 Allergy status to analgesic agent; K31.89 Other diseases of stomach and duodenum; F17.210 Nicotine dependence, cigarettes, uncomplicated; D62 Acute posthemorrhagic anemia; E83.42 Hypomagnesemia; K92.2 Gastrointestinal hemorrhage, unspecified; F10.20 Alcohol dependence, uncomplicated; G25.81 Restless legs syndrome; I85.10 Secondary esophageal varices without bleeding; E87.6 Hypokalemia; F41.8 Other specified anxiety disorders; E87.1 Hypo-osmolality and hyponatremia; Z98.84 Bariatric surgery status; Z96.89 Presence of other specified functional implants; E87.2 Acidosis; K70.31 Alcoholic cirrhosis of liver with ascites; D61.811 Other drug-induced pancytopenia

== ENCOUNTER 2022-03-01 21:08 | Inpatient (IN) ==
[2022-03-01] MEDS ORDERED: FAMOTIDINE 20MG IV PUSH 20 MG/5 ML SYR IV STA (21:39)
[2022-03-01] MEDS ORDERED: PANTOprazole 80 MG in DEXTROSE 5% 100 ML IV STA (21:39)
[2022-03-01] MEDS ORDERED: SODIUM CHLORIDE 0.9% 1000ML 1,000 ML IV ONE (21:39)
[2022-03-01] MEDS ORDERED: ONDANSETRON INJ 2 MG/ML 2 ML VIAL IV STA (21:39)
[2022-03-01 22:15] LABS: INR 1.2 (0.9-1.1); Partial Thromboplastin Ratio 0.9; Partial Thromboplastin Time 23.4 Seconds (21.0-31.0); Prothrombin Time 12.4 Seconds (9.0-12.0)
[2022-03-01 22:17] LABS: Albumin Globulin Ratio 0.8 (0.9-2); Albumin Level 3.2 gm/dl (3.4-5.0); BUN Creatinine Ratio 15.6 (10-20); Bilirubin,Total 3.1 mg/dl (0.2-1.0); Calcium 8.1 mg/dl (8.5-10.1); Creatinine Clr Calc Pharmacy 181.6 ml/min; Est GFR (African American) 144.2 ml/min; Est GFR (Non-African American) 124.4 ml/min; Globulin 3.9 gm/dl (2.5-4.0); Potassium 3.5 mmol/L (3.5-5.1); Total Protein 7.1 gm/dl (6.0-8.3)
[2022-03-01 22:40] LABS: Anisocytosis Present; Basophils # (auto) 0.01 K/uL (0-0.2); Basophils % (auto) 0.3 %; Eosinophils # (auto) 0.01 K/uL (0-0.50); Eosinophils % (auto) 0.3 %; Hemoglobin 8.8 g/dl (12.0-16.0); Immature Granulocytes # (auto) 0.01 K/uL (0.00-0.02); Immature Granulocytes % (auto) 0.3 %; Lymphocytes # (auto) 0.71 K/uL (1.2-3.4); Lymphocytes % (auto) 23.1 %; Mean Corpuscular Hemoglobin 24.2 pg (25.0-34.0); Mean Corpuscular Hgb Conc 31.4 g/dL (32.0-36.0); Mean Corpuscular Volume 77.1 fL (80.0-100.0); Monocytes # (auto) 0.24 K/uL (0.24-0.82); Monocytes % (auto) 7.8 %; Neutrophils % (auto) 68.2 %; Platelet Count 123 K/uL (130-400); Polychromasia 1+; RDW Coefficient of Variation 26.8 % (11.5-14.5); RDW Standard Deviation 72.3 fL (36.4-46.3); Red Blood Count 3.63 M/uL (3.93-5.22); White Blood Count 3.08 K/ul (4.8-10.8)
--- NOTE | 2022-03-01 23:13 | Emergency Department Note ---
History of Present Illness General Chief complaint: Abdominal Pain Time Seen by Provider: 03/01/22 21:34 History of Present Illness Maximum Pain Intensity: 2 This 56-year-old female with a history of cirrhosis and esophageal varices presents to the ER complaining of abdominal pain and hematemesis for the past week. No bowel movement the past few days. She continues to drink alcohol. Home Medications Medication Instructions Recorded Confirmed Type loperamide 2 mg capsule 2 mg PO Q8H PRN Diarrhea 09/11/19 03/02/22 History colestipol 1 gram tablet 2 g PO BID 30 days #120 tabs 11/09/19 03/02/22 Rx hydroxyzine HCl 25 mg tablet 25 - 50 mg PO BID PRN Anxiety 05/30/20 03/02/22 History ropinirole 0.25 mg tablet 0.25 mg PO HS 02/06/21 03/02/22 History jhpodk-jvzbkdsu-ullwhzu 1 cap PO QID #120 caps 03/22/21 03/02/22 Rx 36,000-114,000-180,000 unit capsule,delay rel (Creon) midodrine 5 mg tablet 5 mg PO TID #90 tabs 03/22/21 03/02/22 Rx furosemide 40 mg tablet 40 mg PO BID 05/26/21 03/02/22 History gabapentin 400 mg capsule 400 mg PO QID 05/26/21 03/02/22 History lactulose 10 gram/15 mL oral 30 ml PO TID 05/26/21 03/02/22 History solution lidocaine 5 % topical patch 1 patch transdermal QAM PRN Pain 05/26/21 03/02/22 History spironolactone 100 mg tablet 100 mg PO DAILY 05/26/21 03/02/22 History citalopram 20 mg tablet 20 mg PO QAM 03/02/22 03/02/22 History diclofenac sodium 1 % topical gel 1 ea topical BID PRN Pain 03/02/22 03/02/22 History gabapentin 100 mg capsule 100 mg PO HS 03/02/22 03/02/22 History gabapentin 600 mg tablet 600 mg PO HS 03/02/22 03/02/22 History omeprazole 20 mg capsule,delayed 20 mg PO BID PRN Heartburn 03/02/22 03/02/22 History release ondansetron HCl 4 mg tablet 4 mg PO Q8 PRN Nausea And Vomiting 03/02/22 03/02/22 History rifaximin 550 mg tablet (Xifaxan) 550 mg PO BID 03/02/22 03/02/22 History trazodone 50 mg tablet 50 mg PO QPM 03/02/22 03/02/22 History Allergies Allergy/AdvReac Type Severity Reaction Status Date / Time diphenhydramine Allergy Severe seizures/it Verified 03/02/22 01:03 mya/tremo rs bupropion Allergy Intermediate Palpitation Verified 03/02/22 01:03 s clarithromycin Allergy Intermediate HIVES Verified 03/02/22 01:03 aspirin Allergy Mild hives/ringing Verified 03/02/22 01:03 of ears oxaprozin Allergy Mild nausea/vomi Verified 03/02/22 01:03 ting salicylates Allergy Mild ringing in Verified 03/02/22 01:03 ears/hives Past Med/Surg History Medical History Alcohol abuse hx of Anxiety Anxiety Chronic pain Cirrhosis Degenerative disc disease Esophageal varices with banding Factitious disorder Fibromyalgia Hypomagnesemia Lumbago Multiple sclerosis Opiate addiction HX OF AND NO PROBLEMS NOW Opiate misuse Pancreatitis Pelvis fracture HX OF CRUSHED PELVIS - FROM ACCIDENT FALLING INTO DUMPSTER CHRONIC PAIN Presence of intrathecal pump PUMP IN PLACE AND NOT WORKING IT WAS TURNED OFF!!! containing morphine 0.189mg/day and fentanyl 2.52mcg/day miminimal rate per pt "it doesnt work I haven't been able to afford the medication for 3 years now"?? Seizures LAST ONE SEVERAL MONTHS AGO -- TAKES GABAPENTIN FOLLOW WITH DOCTOR KATHARINE ABRAHAM FROM [place] Stenosis of surgical anastomosis site of digestive tract Surgical History History of cholecystectomy History of colonoscopy History of esophagogastroduodenoscopy (EGD) History of open reduction and internal fixation (ORIF) procedure left arm/left leg--hardware in place History of Jeffy-en-Y gastric bypass History of tooth extraction all teeth removed History of total hysterectomy with bilateral salpingo-oophorectomy (BSO) Hx of laparoscopy FOR ENDOMETRIOSIS Hx of resection of small bowel DUE TO ENDOMETRIOSIS Family History Other Aneurysm Cancer No family history of adverse response to anesthesia Stroke Social History Smoking Status: Never smoker Tobacco Type: Cigarettes Second Hand Exposure: Yes; Hx Alcohol Use: Yes Alcohol type: beer Hx Substance Use: No Preferred Language: Malaysian Communication Ability: Effective 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: No Beliefs That Will Affect Care: None marital status: Current Living Situation: Alone and Other Current Living Situation Comment: lives with fiance and has home health PT and certified personal finance counselor How many Children do You have: 3 Feels Safe at Home: Yes Assistive Devices: Raised Toilet Seat, Special Shoe and Walker Review of Systems A total of 10 systems reviewed and were otherwise negative Physical Exam Vital Signs Vital Signs - 24 hr 03/01/22 20:56 03/01/22 21:16 03/01/22 21:30 Temperature 37.6 C Temperature Source Oral Pulse Rate 94 H 0 L 95 H Respiratory Rate 18 18 22 Respiratory Effort / Characteristics Non-Labored Respiratory Depth Normal Respiratory Pattern Regular Blood Pressure 128/72 Blood Pressure Mean 90 Pulse Oximetry 98 98 Oxygen Delivery Method Room Air Room Air Sepsis Recent Fever Within 48 Hours No Sepsis New/Unexplained Change in Mental Status N/A Sepsis Action Taken by Nursing No Action Required 03/01/22 21:43 03/01/22 21:43 03/01/22 21:45 Temperature Temperature Source Pulse Rate 97 H 100 H Respiratory Rate 18 17 Respiratory Effort / Characteristics Respiratory Depth Respiratory Pattern Blood Pressure 128/83 Blood Pressure Mean 98 Pulse Oximetry 96 95 Oxygen Delivery Method Room Air Room Air Sepsis Recent Fever Within 48 Hours Sepsis New/Unexplained Change in Mental Status Sepsis Action Taken by Nursing 03/01/22 22:00 03/01/22 22:00 03/01/22 22:23 Temperature Temperature Source Pulse Rate 99 H 96 H Respiratory Rate 19 18 Respiratory Effort / Characteristics Respiratory Depth Respiratory Pattern Blood Pressure 132/87 Blood Pressure Mean 102 Pulse Oximetry 96 96 Oxygen Delivery Method Room Air Room Air Sepsis Recent Fever Within 48 Hours Sepsis New/Unexplained Change in Mental Status Sepsis Action Taken by Nursing 03/01/22 22:15 03/01/22 22:30 03/01/22 22:31 Temperature Temperature Source Pulse Rate 95 H 99 H 93 H Respiratory Rate 20 24 22 Respiratory Effort / Characteristics Respiratory Depth Respiratory Pattern Blood Pressure Blood Pressure Mean Pulse Oximetry 97 96 97 Oxygen Delivery Method Room Air Room Air Room Air Sepsis Recent Fever Within 48 Hours Sepsis New/Unexplained Change in Mental Status Sepsis Action Taken by Nursing 03/01/22 22:31 03/01/22 22:45 03/01/22 23:00 Temperature Temperature Source Pulse Rate 101 H 83 Respiratory Rate 20 22 Respiratory Effort / Characteristics Respiratory Depth Respiratory Pattern Blood Pressure 126/80 Blood Pressure Mean 95 Pulse Oximetry 97 98 Oxygen Delivery Method Room Air Room Air Sepsis Recent Fever Within 48 Hours Sepsis New/Unexplained Change in Mental Status Sepsis Action Taken by Nursing VITALS: Vitals are noted on the nurse's note and reviewed by myself. Vital signs stable. GENERAL: White female, in no acute distress, nondiaphoretic, well-developed well-nourished. SKIN: The skin was without rashes, erythema, edema, or bruising. There is no tenting of the skin. Capillary reflex less than 2 seconds. HEAD: Normocephalic atraumatic. EARS: External auditory canals clear, EYES: Pupils equal round and reactive to light and accommodation. Conjunctivae without injection, sclerae with icterus. Extraocular movements intact. NOSE: Patent, turbinates without inflammation or discharge. No sinus tenderness. MOUTH: Mucous membranes moist. Pharynx without erythema or exudate. Uvula midline. Airway patent. Tongue does not deviate. NECK: Supple without nuchal rigidity. No lymphadenopathy. No thyromegaly. Cervical spine is nontender. No JVD. HEART: Regular rate and rhythm LUNGS: Clear to auscultation bilaterally without wheezes, rales or rhonchi. No retractions or accessory muscle use. ABDOMEN: Positive bowel sounds x 4. Normal tympanic percussion. Soft, distended, positive fluid wave, diffusely tender to palpation, without masses or organomegaly. Bills sign negative. No guarding or rebound tenderness. No CVA tenderness Rectal exam: Brown stool guaiac negative. Audiovisual Tech present. MUSCULOSKELETAL: No muscle atrophy, noted. NEURO: Patient was alert and oriented to person place and time. Normal sensation to light and sharp touch. No focal neurological deficits. Course Administered Medications Discontinued Medications Sodium Chloride (Nss 1000ml) 1,000 mls @ 999 mls/hr IV .Q1H1M ONE Stop: 03/01/22 22:39 Last Admin: 03/01/22 22:22 Dose: 999 mls/hr Documented By: ANTONY Pantoprazole Sodium 80 mg/ (Dextrose) 100 mls @ 400 mls/hr IV ONE STA Stop: 03/01/22 21:53 Last Admin: 03/02/22 00:44 Dose: 400 mls/hr Documented By: ANTONY Famotidine (Pepcid 20mg Iv Push) 20 mg in 5 mls @ 2.5 mls/min IV NOW STA Stop: 03/01/22 21:40 Last Admin: 03/01/22 22:20 Dose: 2.5 mls/min Documented By: ANTONY Ioversol (Optiray 350 100ml) 100 ml IV ONCE ONE Stop: 03/01/22 23:41 Last Admin: 03/01/22 23:40 Dose: 85 ml Documented By: ALEAH Ondansetron HCl (Ondansetron Inj 2 Mg/Ml 2 Ml Vial) 4 mg IV NOW STA Stop: 03/01/22 21:40 Last Admin: 03/01/22 22:20 Dose: 4 mg Documented By: ANTONY Medical Decision Making Medical Records Attestation: I reviewed the patient's medical records. Home Medications Current Medication List: was personally reviewed by me Laboratory Data Attestation: I reviewed the patient's lab results. 03/01/22 21:42 03/01/22 21:42 Lab Results 03/01/22 03/01/22 03/01/22 Range/Units 21:42 21:42 21:42 WBC 3.08 L (4.8-10.8) K/ul RBC 3.63 L (3.93-5.22) M/uL Hgb 8.8 L (12.0-16.0) g/dl Hct 28.0 L (34.1-44.9) % MCV 77.1 L (80.0-100.0) fL MCH 24.2 L (25.0-34.0) pg MCHC 31.4 L (32.0-36.0) g/dL RDW Std Deviation 72.3 H (36.4-46.3) fL RDW Coeff of Chetan 26.8 H (11.5-14.5) % Plt Count 123 L (130-400) K/uL MPV 10.0 (9.4-12.3) fL Immature Gran % (Auto) 0.3 % Neut % (Auto) 68.2 % Lymph % (Auto) 23.1 % [place] % (Auto) 7.8 % Eos % (Auto) 0.3 % Baso % (Auto) 0.3 % Neut # (Auto) 2.10 (1.4-6.5) K/uL Lymph # (Auto) 0.71 L (1.2-3.4) K/uL [place] # (Auto) 0.24 (0.24-0.82) K/uL Eos # (Auto) 0.01 (0-0.50) K/uL Baso # (Auto) 0.01 (0-0.2) K/uL Immature Gran # (Auto) 0.01 (0.00-0.02) K/uL Polychromasia 1+ Anisocytosis Present PT (9.0-12.0) Seconds INR (0.9-1.1) APTT (21.0-31.0) Seconds PTT Ratio Sodium 128 L (136-145) mmol/L Potassium 3.5 (3.5-5.1) mmol/L Chloride 93 L (98-107) mmol/L Carbon Dioxide 21 (21-32) mmol/L Anion Gap 14 H (3-11) BUN 5 L (6-23) mg/dl Creatinine 0.32 L (0.6-1.2) mg/dl Est Cr Clr Drug Dosing 181.6 ml/min Est GFR ( Amer) 144.2 ml/min Est GFR (Non-Af Amer) 124.4 ml/min BUN/Creatinine Ratio 15.6 (10-20) Glucose 72 (70-99(Fasting)) mg/dl Lactate (0.4-2.0) mmol/L Calcium 8.1 L (8.5-10.1) mg/dl Magnesium (1.7-2.4) mg/dl Total Bilirubin 3.1 H (0.2-1.0) mg/dl AST 33 (13-39) U/L ALT 12 (7-52) U/L Alkaline Phosphatase 156 H (34-104) U/L Ammonia (18-72) umol/L Troponin I High Sens 11.0 (0-14) pg/ml Total Protein 7.1 (6.0-8.3) gm/dl Albumin 3.2 L (3.4-5.0) gm/dl Globulin 3.9 (2.5-4.0) gm/dl Albumin/Globulin Ratio 0.8 L (0.9-2) Lipase 5 L (11-82) U/L TSH (0.300-4.500) uIu/ml Ethyl Alcohol mg/dL 96.8 H (<10.0) mg/dl SARS-CoV-2, RNA, NAAT (NEGATIVE) 03/01/22 03/01/22 03/01/22 Range/Units 21:42 21:42 21:42 WBC (4.8-10.8) K/ul RBC (3.93-5.22) M/uL Hgb (12.0-16.0) g/dl Hct (34.1-44.9) % MCV (80.0-100.0) fL MCH (25.0-34.0) pg MCHC (32.0-36.0) g/dL RDW Std Deviation (36.4-46.3) fL RDW Coeff of Chetan (11.5-14.5) % Plt Count (130-400) K/uL MPV (9.4-12.3) fL Immature Gran % (Auto) % Neut % (Auto) % Lymph % (Auto) % [place] % (Auto) % Eos % (Auto) % Baso % (Auto) % Neut # (Auto) (1.4-6.5) K/uL Lymph # (Auto) (1.2-3.4) K/uL [place] # (Auto) (0.24-0.82) K/uL Eos # (Auto) (0-0.50) K/uL Baso # (Auto) (0-0.2) K/uL Immature Gran # (Auto) (0.00-0.02) K/uL Polychromasia Anisocytosis PT 12.4 H (9.0-12.0) Seconds INR 1.2 H (0.9-1.1) APTT 23.4 (21.0-31.0) Seconds PTT Ratio 0.9 Sodium (136-145) mmol/L Potassium (3.5-5.1) mmol/L Chloride (98-107) mmol/L Carbon Dioxide (21-32) mmol/L Anion Gap (3-11) BUN (6-23) mg/dl Creatinine (0.6-1.2) mg/dl Est Cr Clr Drug Dosing ml/min Est GFR ( Amer) ml/min Est GFR (Non-Af Amer) ml/min BUN/Creatinine Ratio (10-20) Glucose (70-99(Fasting)) mg/dl Lactate 1.9 (0.4-2.0) mmol/L Calcium (8.5-10.1) mg/dl Magnesium (1.7-2.4) mg/dl Total Bilirubin (0.2-1.0) mg/dl AST (13-39) U/L ALT (7-52) U/L Alkaline Phosphatase (34-104) U/L Ammonia 31.0 (18-72) umol/L Troponin I High Sens (0-14) pg/ml Total Protein (6.0-8.3) gm/dl Albumin (3.4-5.0) gm/dl Globulin (2.5-4.0) gm/dl Albumin/Globulin Ratio (0.9-2) Lipase (11-82) U/L TSH (0.300-4.500) uIu/ml Ethyl Alcohol mg/dL (<10.0) mg/dl SARS-CoV-2, RNA, NAAT (NEGATIVE) 03/01/22 03/01/22 03/01/22 Range/Units 21:42 21:42 22:20 WBC (4.8-10.8) K/ul RBC (3.93-5.22) M/uL Hgb (12.0-16.0) g/dl Hct (34.1-44.9) % MCV (80.0-100.0) fL MCH (25.0-34.0) pg MCHC (32.0-36.0) g/dL RDW Std Deviation (36.4-46.3) fL RDW Coeff of Chetan (11.5-14.5) % Plt Count (130-400) K/uL MPV (9.4-12.3) fL Immature Gran % (Auto) % Neut % (Auto) % Lymph % (Auto) % [place] % (Auto) % Eos % (Auto) % Baso % (Auto) % Neut # (Auto) (1.4-6.5) K/uL Lymph # (Auto) (1.2-3.4) K/uL [place] # (Auto) (0.24-0.82) K/uL Eos # (Auto) (0-0.50) K/uL Baso # (Auto) (0-0.2) K/uL Immature Gran # (Auto) (0.00-0.02) K/uL Polychromasia Anisocytosis PT (9.0-12.0) Seconds INR (0.9-1.1) APTT (21.0-31.0) Seconds PTT Ratio Sodium (136-145) mmol/L Potassium (3.5-5.1) mmol/L Chloride (98-107) mmol/L Carbon Dioxide (21-32) mmol/L Anion Gap (3-11) BUN (6-23) mg/dl Creatinine (0.6-1.2) mg/dl Est Cr Clr Drug Dosing ml/min Est GFR ( Amer) ml/min Est GFR (Non-Af Amer) ml/min BUN/Creatinine Ratio (10-20) Glucose (70-99(Fasting)) mg/dl Lactate (0.4-2.0) mmol/L Calcium (8.5-10.1) mg/dl Magnesium 1.7 (1.7-2.4) mg/dl Total Bilirubin (0.2-1.0) mg/dl AST (13-39) U/L ALT (7-52) U/L Alkaline Phosphatase (34-104) U/L Ammonia (18-72) umol/L Troponin I High Sens (0-14) pg/ml Total Protein (6.0-8.3) gm/dl Albumin (3.4-5.0) gm/dl Globulin (2.5-4.0) gm/dl Albumin/Globulin Ratio (0.9-2) Lipase (11-82) U/L TSH 1.888 (0.300-4.500) uIu/ml Ethyl Alcohol mg/dL (<10.0) mg/dl SARS-CoV-2, RNA, NAAT NEGATIVE (NEGATIVE) 03/02/22 Range/Units 00:46 WBC (4.8-10.8) K/ul RBC (3.93-5.22) M/uL Hgb 7.6 L (12.0-16.0) g/dl Hct 24.6 L (34.1-44.9) % MCV (80.0-100.0) fL MCH (25.0-34.0) pg MCHC (32.0-36.0) g/dL RDW Std Deviation (36.4-46.3) fL RDW Coeff of Chetan (11.5-14.5) % Plt Count (130-400) K/uL MPV (9.4-12.3) fL Immature Gran % (Auto) % Neut % (Auto) % Lymph % (Auto) % [place] % (Auto) % Eos % (Auto) % Baso % (Auto) % Neut # (Auto) (1.4-6.5) K/uL Lymph # (Auto) (1.2-3.4) K/uL [place] # (Auto) (0.24-0.82) K/uL Eos # (Auto) (0-0.50) K/uL Baso # (Auto) (0-0.2) K/uL Immature Gran # (Auto) (0.00-0.02) K/uL Polychromasia Anisocytosis PT (9.0-12.0) Seconds INR (0.9-1.1) APTT (21.0-31.0) Seconds PTT Ratio Sodium (136-145) mmol/L Potassium (3.5-5.1) mmol/L Chloride (98-107) mmol/L Carbon Dioxide (21-32) mmol/L Anion Gap (3-11) BUN (6-23) mg/dl Creatinine (0.6-1.2) mg/dl Est Cr Clr Drug Dosing ml/min Est GFR ( Amer) ml/min Est GFR (Non-Af Amer) ml/min BUN/Creatinine Ratio (10-20) Glucose (70-99(Fasting)) mg/dl Lactate (0.4-2.0) mmol/L Calcium (8.5-10.1) mg/dl Magnesium (1.7-2.4) mg/dl Total Bilirubin (0.2-1.0) mg/dl AST (13-39) U/L ALT (7-52) U/L Alkaline Phosphatase (34-104) U/L Ammonia (18-72) umol/L Troponin I High Sens (0-14) pg/ml Total Protein (6.0-8.3) gm/dl Albumin (3.4-5.0) gm/dl Globulin (2.5-4.0) gm/dl Albumin/Globulin Ratio (0.9-2) Lipase (11-82) U/L TSH (0.300-4.500) uIu/ml Ethyl Alcohol mg/dL (<10.0) mg/dl SARS-CoV-2, RNA, NAAT (NEGATIVE) Imaging Data Attestation: I personally reviewed and interpreted this imaging study as follows: Radiologist's Impression: Abdomen/Pelvis CT 03/01/22 21:39 CT SCAN OF THE ABDOMEN AND PELVIS WITH IV CONTRAST CLINICAL HISTORY: Generalized abdominal pain GI bleeding. Intoxication. COMPARISON STUDY: Abdominal CT dated 05/26/2021. TECHNIQUE: Following the IV administration of 85 cc of Optiray 350, CT scan of the abdomen and pelvis is performed from the lung bases to the proximal femora. Images are reviewed in the axial, sagittal, and coronal planes. IV contrast was administered without complication. A dose lowering technique was utilized adhering to the principles of ALARA. The examination is degraded by motion artifact, as well as by streak artifact from the arms which could not be elevated above the abdomen. There is also significant streak artifact from an implanted device in the right lower quadrant abdominal wall. CT DOSE: 405.14 mGy.cm FINDINGS: Lung bases: The heart is top normal in size and without pericardial effusion. There is elevation of the right hemidiaphragm with bibasilar scarring/atelectasis. No airspace consolidation or pleural effusion is identified. Liver: The contrast-enhanced liver is cirrhotic morphology and heterogeneous in attenuation. Hepatic attenuation is diminished indicating steatosis. There is nodularity of the hepatic surface contour. There is no intrahepatic biliary ductal dilatation. The hepatic veins and portal veins are patent. There is perisplenic collaterals and recanalization of the periumbilical vein. Gallbladder: Surgically absent and clips in the gallbladder fossa. Spleen: The spleen is enlarged measuring 14 cm in length. Pancreas: Atrophic and grossly unremarkable. Adrenal glands: Unremarkable. Kidneys: The contrast enhanced kidneys are normal in size and without hydronephrosis. The kidneys enhance symmetrically. Abdominal vasculature: The abdominal aorta is normal in course and caliber. Bowel: Postsurgical change is noted in the stomach consistent with a Jefyf-en-Y gastric bypass procedure. Wall thickening is seen throughout the colon and small bowel loops. No obstruction is identified. The appendix is not identified and reported surgically absent Peritoneum: There is a moderate to large volume of abdominopelvic ascites. No intraperitoneal free air is seen. Lymphadenopathy: None. Pelvic viscera: The bladder is normal as visualized. The uterus is surgically absent. No adnexal lesion is seen. Skeletal structures: The skeletal structures are osteopenic. There are numerous chronic thoracolumbar compression deformities. These are similar to before 1222 examination. Moderate lumbosacral spinal lordosis is observed. No lytic or blastic lesions are seen. There is chronic compression deformity of the left proximal femur with intertrochanteric and intramedullary nails in place. 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 There are healed left pubic ring fractures as well as chronic posttraumatic deformity of the sacrum. There are numerous chronic social bilateral rib fractures. Chronic compression deformity and postoperative changes partially visualized in the left wrist which overlies the abdomen. An implanted intrathecal device is present in the right lower quadrant abdominal wall. The catheter or leads do not enter the central spinal canal. IMPRESSION: 1. The liver is cirrhotic in morphology and markedly heterogeneous in attenuation. 2. A moderate to large volume of abdominopelvic ascites, splenomegaly, upper abdominal collaterals, and recanalization of the periumbilical vein indicate portal hypertension. 3. There is mild diffuse wall thickening/edema seen. The small bowel and colon. This could be due to cirrhosis and hyperproteinemic state. Correlate fluid from the nonspecific enterocolitis. 4. Additional findings as above. ACT 112: Negative or not required by law. Electronically signed by: Herbie Reese M.D. 03/02/2022 12:17 AM Chest X-Ray 03/02/22 00:30 SINGLE VIEW CHEST CLINICAL HISTORY: Hyponatremia. FINDINGS: An AP, portable, upright chest radiograph is compared to study dated 03/18/2021. The cardiomediastinal silhouette is unremarkable. There is chronic elevation of the right hemidiaphragm with bibasilar atelectasis. No airspace consolidation or large pleural effusion is identified. No pneumothorax is seen. The skeletal structures are osteopenic. There are chronic/healed bilateral rib fractures.. IMPRESSION: No active disease in the chest. ACT 112: Negative or not required by law. Electronically signed by: Herbie Reese M.D. 03/02/2022 1:09 AM MDM Narrative Prior records/ancillary studies reviewed. Triage Nursing notes reviewed. Additional history obtained from the nursing. The patient's history was concerning for possible gastrointestinal bleeding. Differential diagnosis: Etiologies such as diverticulosis, AVM, coagulopathy, colitis, inflammatory bowel disease, malignancy, Lilian-Hartmann tear, esophagitis, peptic ulcer disease, variceal bleed, gastritis, epistaxis, fissure, hemorrhoids, as well as others were entertained. Physical exam: As above. The patients vital signs were stable. ER treatment provided: An order was placed for continuous cardiac monitoring. The monitor shows a rate of 60-1 50 with a sinus rhythm per my interpretation. Protonix, Pepcid, IV fluids On reassessment the patient felt better. Diagnostics interpreted by me: ECG: Ordered for upper abdominal pain EKG: Poor baseline, normal sinus, normal intervals, rate of 100, Q waves in the anterior leads, impression sinus tachycardia interpreted by myself I think arrhythmia is unlikely. EKG shows normal sinus rhythm with no interval abnormalities such as QT prolongation or WPW. There are no findings to suggest Brugada syndrome. Cardiac monitoring in the emergency department reveals no tachycardic or bradycardic dysrhythmia. Hypertrophic cardiomyopathy was considered but there are no clear historical elements pointing toward this. EKG is not suggestive. The QRS voltage is not extremely large The labs revealed stable anemia per chart review, chronically low platelets Imaging studies: CT imaging as above and was reviewed by myself Consultation: A consultation was placed with the hospitalist. The case was discussed and diagnostics were reviewed. The patient was evaluated in the ER for further treatment. This appears to be consistent with progression of liver disease with ascites and reported hematemesis. Patient had no vomiting here. Hemoccult was negative. Patient reports that she threw up blood at home. She continues to drink alcohol. Patient is a chronic anemia. She was given Protonix and Pepcid as above. She was reassessed multiple times. She is agreeable treatment plan of admission. Prior notes from [place] were reviewed. Labs and advanced imaging were ordered as patient reported hematemesis and severe abdominal pain. Case was discussed with the hospitalist and reviewed. Patient was admitted to the medical service.. By the evaluation outlined above emergent etiologies such as esophageal perforation, epistaxis, malignancy, inflammatory bowel disease, as well as others were deemed relatively unlikely. The pt informed about the findings as listed above. All questions were answered and pleased with the treatment. The chart was completed utilizing Rebit voice recognition software. Grammatical errors, random word insertions, pronoun errors, and incomplete sentences are an occassional consequence of this system due to software limitations, ambient noise, and hardware issues. Any formal questions or concerns about the content, text, or information contained within the body of this dictation should be directly addressed to the physician assistant plant control operator for clarification. Impression & Plan Alcoholic cirrhosis, Alcoholism, Alcohol use, Chronic anemia, Hematemesis, Abdominal pain, acute, Acute hyponatremia Discharge Plan Visit Data Chief Complaint: Abdominal Pain ED Provider: Theresa Quiroz ED Midlevel Provider: Nani Booker Discharge Problem: Alcoholic cirrhosis, Alcoholism, Alcohol use, Chronic anemia, Hematemesis, Abdominal pain, acute, Acute hyponatremia Patient Disposition: Admitted As Inpatient Condition: Fair Forms Stand Alone Forms: Art [employer] Click Prescriptions Prescriptions: No Action loperamide 2 mg capsule 2 mg PO Q8H PRN (Reason: Diarrhea) colestipol 1 gram Tablet 2 g PO BID 30 Days Qty: 120 0RF hydroxyzine HCl 25 mg tablet 25 - 50 mg PO BID PRN (Reason: Anxiety) ropinirole 0.25 mg tablet 0.25 mg PO HS midodrine 5 mg tablet 5 mg PO TID Qty: 90 2RF Rx Instructions: do not give last dose of day after 6PM or within 4 hrs of bedtime Creon 36,000-114,000- 180,000 unit Capsule,Delayed Release(Dr/Ec) 1 cap PO QID Qty: 120 2RF gabapentin 400 mg capsule 400 mg PO QID furosemide 40 mg tablet 40 mg PO BID spironolactone 100 mg tablet 100 mg PO DAILY lidocaine 5 % adhesive patch,medicated 1 patch transdermal QAM PRN (Reason: Pain) lactulose 10 gram/15 mL solution 30 ml PO TID trazodone 50 mg tablet 50 mg PO QPM gabapentin 600 mg tablet 600 mg PO HS Rx Instructions: take along with 100mg gabapentin 100 mg capsule 100 mg PO HS Rx Instructions: take along with 600mg ondansetron HCl 4 mg tablet 4 mg PO Q8 PRN (Reason: Nausea And Vomiting) citalopram 20 mg tablet 20 mg PO QAM omeprazole 20 mg capsule,delayed release(DR/EC) 20 mg PO BID PRN (Reason: Heartburn) diclofenac sodium 1 % gel 1 ea TOPICAL BID PRN (Reason: Pain) Xifaxan 550 mg tablet 550 mg PO BID Referrals Referrals: Filiberto Moya [Primary Care Provider] - : Alcoholic cirrhosis Qualifiers: Ascites presence: with ascites Qualified Code(s): K70.31 - Alcoholic cirrhosis of liver with ascites
[2022-03-01] MEDS ORDERED: OPTIRAY 350 100ml IV ONE (23:40)
--- NOTE | 2022-03-02 00:19 | CT Scan Report ---
CT SCAN OF THE ABDOMEN AND PELVIS WITH IV CONTRAST CLINICAL HISTORY: Generalized abdominal pain GI bleeding. Intoxication. COMPARISON STUDY: Abdominal CT dated 05/26/2021. TECHNIQUE: Following the IV administration of 85 cc of Optiray 350, CT scan of the abdomen and pelvi s is performed from the lung bases to the proximal femora. Images are reviewed in the axial, sagittal , and coronal planes. IV contrast was administered without complication. A dose lowering technique wa s utilized adhering to the principles of ALARA. The examination is degraded by motion artifact, as we ll as by streak artifact from the arms which could not be elevated above the abdomen. There is also s ignificant streak artifact from an implanted device in the right lower quadrant abdominal wall. CT DOSE: 405.14 mGy.cm FINDINGS: Lung bases: The heart is top normal in size and without pericardial effusion. There is elevation of t he right hemidiaphragm with bibasilar scarring/atelectasis. No airspace consolidation or pleural effu [place] is identified. Liver: The contrast-enhanced liver is cirrhotic morphology and heterogeneous in attenuation. Hepatic attenuation is diminished indicating steatosis. There is nodularity of the hepatic surface contour. T here is no intrahepatic biliary ductal dilatation. The hepatic veins and portal veins are patent. The re is perisplenic collaterals and recanalization of the periumbilical vein. Gallbladder: Surgically absent and clips in the gallbladder fossa. Spleen: The spleen is enlarged measuring 14 cm in length. Pancreas: Atrophic and grossly unremarkable. Adrenal glands: Unremarkable. Kidneys: The contrast enhanced kidneys are normal in size and without hydronephrosis. The kidneys enh ance symmetrically. Abdominal vasculature: The abdominal aorta is normal in course and caliber. Bowel: Postsurgical change is noted in the stomach consistent with a Jeffy-en-Y gastric bypass procedu re. Wall thickening is seen throughout the colon and small bowel loops. No obstruction is identified. The appendix is not identified and reported surgically absent Peritoneum: There is a moderate to large volume of abdominopelvic ascites. No intraperitoneal free ai r is seen. Lymphadenopathy: None. Pelvic viscera: The bladder is normal as visualized. The uterus is surgically absent. No adnexal lesi on is seen. Skeletal structures: The skeletal structures are osteopenic. There are numerous chronic thoracolumbar compression deformities. These are similar to before 1222 examination. Moderate lumbosacral spinal l ordosis is observed. No lytic or blastic lesions are seen. There is chronic compression deformity of the left proximal femur with intertrochanteric and intramedullary nails in place. 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 There are healed left pubic ring f ractures as well as chronic posttraumatic deformity of the sacrum. There are numerous chronic social bilateral rib fractures. Chronic compression deformity and postoperative changes partially visualized in the left wrist which overlies the abdomen. An implanted intrathecal device is present in the righ t lower quadrant abdominal wall. The catheter or leads do not enter the central spinal canal. IMPRESSION: 1. The liver is cirrhotic in morphology and markedly heterogeneous in attenuation. 2. A moderate to large volume of abdominopelvic ascites, splenomegaly, upper abdominal collaterals, a nd recanalization of the periumbilical vein indicate portal hypertension. 3. There is mild diffuse wall thickening/edema seen. The small bowel and colon. This could be due to cirrhosis and hyperproteinemic state. Correlate fluid from the nonspecific enterocolitis. 4. Additional findings as above. ACT 112: Negative or not required by law. Electronically signed by: Herbie Reese M.D. 03/02/2022 12:17 AM
[2022-03-02] MEDS ORDERED: cefTRIAXone SODIUM 2,000 MG/70 ML BAG IV STA (00:29)
[2022-03-02] MEDS ORDERED: THIAMINE HCL 100 MG in SYRINGE 9 ML IV STA (00:33)
[2022-03-02 01:12] LABS: Hematocrit (blood only) 24.6 % (34.1-44.9); Hemoglobin 7.6 g/dl (12.0-16.0)
--- NOTE | 2022-03-02 01:12 | XRay Report ---
SINGLE VIEW CHEST CLINICAL HISTORY: Hyponatremia. FINDINGS: An AP, portable, upright chest radiograph is compared to study dated 03/18/2021. The cardiome diastinal silhouette is unremarkable. There is chronic elevation of the right hemidiaphragm with biba silar atelectasis. No airspace consolidation or large pleural effusion is identified. No pneumothorax is seen. The skeletal structures are osteopenic. There are chronic/healed bilateral rib fractures.. IMPRESSION: No active disease in the chest. ACT 112: Negative or not required by law. Electronically signed by: Herbie Reese M.D. 03/02/2022 1:09 AM
--- NOTE | 2022-03-02 01:46 | Emergency Department Note ---
Impression & Plan Alcoholic cirrhosis, Alcoholism, Alcohol use, Chronic anemia, Hematemesis, Abdominal pain, acute, Acute hyponatremia ED Provider Note CHIEF COMPLAINT: [] HISTORY OF PRESENT ILLNESS: This [] patient presents to the emergency department [] REVIEW OF SYSTEMS: A review of systems was performed with positives and pertinent negatives listed in the history of present illness. 10 systems were reviewed and are otherwise negative. ALLERGIES: see below MEDICATIONS: see below PMH: see below SOCIAL HISTORY: see below DDx: [] PHYSICAL EXAM: Vital signs reviewed. General: Well-appearing, in no significant distress. HEENT: No scleral icterus, PERRLA, neck supple. Atraumatic. Cardiovascular: Regular rate and rhythm, no extra sounds. Pulmonary: Clear to auscultation bilaterally, normal work of breathing. Abdomen: Soft, nontender, nondistended, positive bowel sounds. Musculoskeletal: Atraumatic, no peripheral edema. Neurologic: Patient awake alert and oriented x 3, speech is clear Skin: Warm, dry, no rash EMERGENCY DEPARTMENT COURSE/MDM: [] MONITORING: An order for cardiac monitoring was placed and the patient is noted to be in a [] at [] beats per minute. RADIOLOGY: EKG: DISPOSITION: Past Med/Surg History Medical History Alcohol abuse hx of Anxiety Anxiety Chronic pain Cirrhosis Degenerative disc disease Esophageal varices with banding Factitious disorder Fibromyalgia Hypomagnesemia Lumbago Multiple sclerosis Opiate addiction HX OF AND NO PROBLEMS NOW Opiate misuse Pancreatitis Pelvis fracture HX OF CRUSHED PELVIS - FROM ACCIDENT FALLING INTO DUMPSTER CHRONIC PAIN Presence of intrathecal pump PUMP IN PLACE AND NOT WORKING IT WAS TURNED OFF!!! containing morphine 0.189mg/day and fentanyl 2.52mcg/day miminimal rate per pt "it doesnt work I haven't been able to afford the medication for 3 years now"?? Seizures LAST ONE SEVERAL MONTHS AGO -- TAKES GABAPENTIN FOLLOW WITH DOCTOR KATHARINE ABRAHAM FROM [place] Stenosis of surgical anastomosis site of digestive tract Surgical History History of cholecystectomy History of colonoscopy History of esophagogastroduodenoscopy (EGD) History of open reduction and internal fixation (ORIF) procedure left arm/left leg--hardware in place History of Jeffy-en-Y gastric bypass History of tooth extraction all teeth removed History of total hysterectomy with bilateral salpingo-oophorectomy (BSO) Hx of laparoscopy FOR ENDOMETRIOSIS Hx of resection of small bowel DUE TO ENDOMETRIOSIS Family History Other Aneurysm Cancer No family history of adverse response to anesthesia Stroke Social History Smoking Status: Never smoker Tobacco Type: Cigarettes Second Hand Exposure: Yes; Hx Alcohol Use: Yes Alcohol type: beer Hx Substance Use: No Preferred Language: Swedish Communication Ability: Effective Electronics Detail Draftsperson Required: No Beliefs That Will Affect Care: None marital status: Current Living Situation: Alone and Other Current Living Situation Comment: lives with fiance and has home health PT and personal banker How many Children do You have: 3 Feels Safe at Home: Yes Assistive Devices: Raised Toilet Seat, Special Shoe and Walker Allergies Allergies Allergy/AdvReac Type Severity Reaction Status Date / Time diphenhydramine Allergy Severe seizures/it Verified 03/02/22 01:03 mya/tremo rs bupropion Allergy Intermediate Palpitation Verified 03/02/22 01:03 s clarithromycin Allergy Intermediate HIVES Verified 03/02/22 01:03 aspirin Allergy Mild hives/ringing Verified 03/02/22 01:03 of ears oxaprozin Allergy Mild nausea/vomi Verified 03/02/22 01:03 ting salicylates Allergy Mild ringing in Verified 03/02/22 01:03 ears/hives Home Meds Home Medications Medication Instructions Recorded Confirmed loperamide 2 mg capsule 2 mg PO Q8H PRN Diarrhea 09/11/19 03/02/22 hydroxyzine HCl 25 mg tablet 25 - 50 mg PO BID PRN Anxiety 05/30/20 03/02/22 ropinirole 0.25 mg tablet 0.25 mg PO HS 02/06/21 03/02/22 furosemide 40 mg tablet 40 mg PO BID 05/26/21 03/02/22 gabapentin 400 mg capsule 400 mg PO QID 05/26/21 03/02/22 lactulose 10 gram/15 mL oral 30 ml PO TID 05/26/21 03/02/22 solution lidocaine 5 % topical patch 1 patch transdermal QAM PRN Pain 05/26/21 03/02/22 spironolactone 100 mg tablet 100 mg PO DAILY 05/26/21 03/02/22 citalopram 20 mg tablet 20 mg PO QAM 03/02/22 03/02/22 diclofenac sodium 1 % topical gel 1 ea topical BID PRN Pain 03/02/22 03/02/22 gabapentin 100 mg capsule 100 mg PO HS 03/02/22 03/02/22 gabapentin 600 mg tablet 600 mg PO HS 03/02/22 03/02/22 omeprazole 20 mg capsule,delayed 20 mg PO BID PRN Heartburn 03/02/22 03/02/22 release ondansetron HCl 4 mg tablet 4 mg PO Q8 PRN Nausea And Vomiting 03/02/22 03/02/22 rifaximin 550 mg tablet (Xifaxan) 550 mg PO BID 03/02/22 03/02/22 trazodone 50 mg tablet 50 mg PO QPM 03/02/22 03/02/22 Previous Rx's Medication Instructions Recorded colestipol 1 gram tablet 2 g PO BID 30 days #120 tabs 11/09/19 [id number] 1 cap PO QID #120 caps 03/22/21 36,000-114,000-180,000 unit capsule,delay rel (Creon) midodrine 5 mg tablet 5 mg PO TID #90 tabs 03/22/21 Results & Data (ED) Vital Signs Vital Signs - 24 hr 03/01/22 20:56 03/01/22 21:16 03/01/22 21:30 Temperature 37.6 C Temperature Source Oral Pulse Rate 94 H 0 L 95 H Respiratory Rate 18 18 22 Respiratory Effort / Characteristics Non-Labored Respiratory Depth Normal Respiratory Pattern Regular Blood Pressure 128/72 Blood Pressure Mean 90 Pulse Oximetry 98 98 Oxygen Delivery Method Room Air Room Air Sepsis Recent Fever Within 48 Hours No Sepsis New/Unexplained Change in Mental Status N/A Sepsis Action Taken by Nursing No Action Required 03/01/22 21:43 03/01/22 21:43 03/01/22 21:45 Temperature Temperature Source Pulse Rate 97 H 100 H Respiratory Rate 18 17 Respiratory Effort / Characteristics Respiratory Depth Respiratory Pattern Blood Pressure 128/83 Blood Pressure Mean 98 Pulse Oximetry 96 95 Oxygen Delivery Method Room Air Room Air Sepsis Recent Fever Within 48 Hours Sepsis New/Unexplained Change in Mental Status Sepsis Action Taken by Nursing 03/01/22 22:00 03/01/22 22:00 03/01/22 22:23 Temperature Temperature Source Pulse Rate 99 H 96 H Respiratory Rate 19 18 Respiratory Effort / Characteristics Respiratory Depth Respiratory Pattern Blood Pressure 132/87 Blood Pressure Mean 102 Pulse Oximetry 96 96 Oxygen Delivery Method Room Air Room Air Sepsis Recent Fever Within 48 Hours Sepsis New/Unexplained Change in Mental Status Sepsis Action Taken by Nursing 03/01/22 22:15 03/01/22 22:30 03/01/22 22:31 Temperature Temperature Source Pulse Rate 95 H 99 H 93 H Respiratory Rate 20 24 22 Respiratory Effort / Characteristics Respiratory Depth Respiratory Pattern Blood Pressure Blood Pressure Mean Pulse Oximetry 97 96 97 Oxygen Delivery Method Room Air Room Air Room Air Sepsis Recent Fever Within 48 Hours Sepsis New/Unexplained Change in Mental Status Sepsis Action Taken by Nursing 03/01/22 22:31 03/01/22 22:45 03/01/22 23:00 Temperature Temperature Source Pulse Rate 101 H 83 Respiratory Rate 20 22 Respiratory Effort / Characteristics Respiratory Depth Respiratory Pattern Blood Pressure 126/80 Blood Pressure Mean 95 Pulse Oximetry 97 98 Oxygen Delivery Method Room Air Room Air Sepsis Recent Fever Within 48 Hours Sepsis New/Unexplained Change in Mental Status Sepsis Action Taken by Nursing 03/01/22 23:15 Temperature Temperature Source Pulse Rate 92 H Respiratory Rate 18 Respiratory Effort / Characteristics Respiratory Depth Respiratory Pattern Blood Pressure Blood Pressure Mean Pulse Oximetry 95 Oxygen Delivery Method Sepsis Recent Fever Within 48 Hours Sepsis New/Unexplained Change in Mental Status Sepsis Action Taken by Nursing Laboratory Data 03/02/22 00:46 03/01/22 21:42 Lab Results 03/01/22 03/01/22 03/01/22 Range/Units 21:42 21:42 21:42 WBC 3.08 L (4.8-10.8) K/ul RBC 3.63 L (3.93-5.22) M/uL Hgb 8.8 L (12.0-16.0) g/dl Hct 28.0 L (34.1-44.9) % MCV 77.1 L (80.0-100.0) fL MCH 24.2 L (25.0-34.0) pg MCHC 31.4 L (32.0-36.0) g/dL RDW Std Deviation 72.3 H (36.4-46.3) fL RDW Coeff of Chetan 26.8 H (11.5-14.5) % Plt Count 123 L (130-400) K/uL MPV 10.0 (9.4-12.3) fL Immature Gran % (Auto) 0.3 % Neut % (Auto) 68.2 % Lymph % (Auto) 23.1 % Clayton % (Auto) 7.8 % Eos % (Auto) 0.3 % Baso % (Auto) 0.3 % Neut # (Auto) 2.10 (1.4-6.5) K/uL Lymph # (Auto) 0.71 L (1.2-3.4) K/uL Clayton # (Auto) 0.24 (0.24-0.82) K/uL Eos # (Auto) 0.01 (0-0.50) K/uL Baso # (Auto) 0.01 (0-0.2) K/uL Immature Gran # (Auto) 0.01 (0.00-0.02) K/uL Polychromasia 1+ Anisocytosis Present PT (9.0-12.0) Seconds INR (0.9-1.1) APTT (21.0-31.0) Seconds PTT Ratio Sodium 128 L (136-145) mmol/L Potassium 3.5 (3.5-5.1) mmol/L Chloride 93 L (98-107) mmol/L Carbon Dioxide 21 (21-32) mmol/L Anion Gap 14 H (3-11) BUN 5 L (6-23) mg/dl Creatinine 0.32 L (0.6-1.2) mg/dl Est Cr Clr Drug Dosing 181.6 ml/min Est GFR ( Amer) 144.2 ml/min Est GFR (Non-Af Amer) 124.4 ml/min BUN/Creatinine Ratio 15.6 (10-20) Glucose 72 (70-99(Fasting)) mg/dl Lactate (0.4-2.0) mmol/L Calcium 8.1 L (8.5-10.1) mg/dl Magnesium (1.7-2.4) mg/dl Total Bilirubin 3.1 H (0.2-1.0) mg/dl AST 33 (13-39) U/L ALT 12 (7-52) U/L Alkaline Phosphatase 156 H (34-104) U/L Ammonia (18-72) umol/L Troponin I High Sens 11.0 (0-14) pg/ml Total Protein 7.1 (6.0-8.3) gm/dl Albumin 3.2 L (3.4-5.0) gm/dl Globulin 3.9 (2.5-4.0) gm/dl Albumin/Globulin Ratio 0.8 L (0.9-2) Lipase 5 L (11-82) U/L TSH (0.300-4.500) uIu/ml Ethyl Alcohol mg/dL 96.8 H (<10.0) mg/dl SARS-CoV-2, RNA, NAAT (NEGATIVE) 03/01/22 03/01/22 03/01/22 Range/Units 21:42 21:42 21:42 WBC (4.8-10.8) K/ul RBC (3.93-5.22) M/uL Hgb (12.0-16.0) g/dl Hct (34.1-44.9) % MCV (80.0-100.0) fL MCH (25.0-34.0) pg MCHC (32.0-36.0) g/dL RDW Std Deviation (36.4-46.3) fL RDW Coeff of Chetan (11.5-14.5) % Plt Count (130-400) K/uL MPV (9.4-12.3) fL Immature Gran % (Auto) % Neut % (Auto) % Lymph % (Auto) % Clayton % (Auto) % Eos % (Auto) % Baso % (Auto) % Neut # (Auto) (1.4-6.5) K/uL Lymph # (Auto) (1.2-3.4) K/uL Clayton # (Auto) (0.24-0.82) K/uL Eos # (Auto) (0-0.50) K/uL Baso # (Auto) (0-0.2) K/uL Immature Gran # (Auto) (0.00-0.02) K/uL Polychromasia Anisocytosis PT 12.4 H (9.0-12.0) Seconds INR 1.2 H (0.9-1.1) APTT 23.4 (21.0-31.0) Seconds PTT Ratio 0.9 Sodium (136-145) mmol/L Potassium (3.5-5.1) mmol/L Chloride (98-107) mmol/L Carbon Dioxide (21-32) mmol/L Anion Gap (3-11) BUN (6-23) mg/dl Creatinine (0.6-1.2) mg/dl Est Cr Clr Drug Dosing ml/min Est GFR ( Amer) ml/min Est GFR (Non-Af Amer) ml/min BUN/Creatinine Ratio (10-20) Glucose (70-99(Fasting)) mg/dl Lactate 1.9 (0.4-2.0) mmol/L Calcium (8.5-10.1) mg/dl Magnesium (1.7-2.4) mg/dl Total Bilirubin (0.2-1.0) mg/dl AST (13-39) U/L ALT (7-52) U/L Alkaline Phosphatase (34-104) U/L Ammonia 31.0 (18-72) umol/L Troponin I High Sens (0-14) pg/ml Total Protein (6.0-8.3) gm/dl Albumin (3.4-5.0) gm/dl Globulin (2.5-4.0) gm/dl Albumin/Globulin Ratio (0.9-2) Lipase (11-82) U/L TSH (0.300-4.500) uIu/ml Ethyl Alcohol mg/dL (<10.0) mg/dl SARS-CoV-2, RNA, NAAT (NEGATIVE) 03/01/22 03/01/22 03/01/22 Range/Units 21:42 21:42 22:20 WBC (4.8-10.8) K/ul RBC (3.93-5.22) M/uL Hgb (12.0-16.0) g/dl Hct (34.1-44.9) % MCV (80.0-100.0) fL MCH (25.0-34.0) pg MCHC (32.0-36.0) g/dL RDW Std Deviation (36.4-46.3) fL RDW Coeff of Chetan (11.5-14.5) % Plt Count (130-400) K/uL MPV (9.4-12.3) fL Immature Gran % (Auto) % Neut % (Auto) % Lymph % (Auto) % Clayton % (Auto) % Eos % (Auto) % Baso % (Auto) % Neut # (Auto) (1.4-6.5) K/uL Lymph # (Auto) (1.2-3.4) K/uL Clayton # (Auto) (0.24-0.82) K/uL Eos # (Auto) (0-0.50) K/uL Baso # (Auto) (0-0.2) K/uL Immature Gran # (Auto) (0.00-0.02) K/uL Polychromasia Anisocytosis PT (9.0-12.0) Seconds INR (0.9-1.1) APTT (21.0-31.0) Seconds PTT Ratio Sodium (136-145) mmol/L Potassium (3.5-5.1) mmol/L Chloride (98-107) mmol/L Carbon Dioxide (21-32) mmol/L Anion Gap (3-11) BUN (6-23) mg/dl Creatinine (0.6-1.2) mg/dl Est Cr Clr Drug Dosing ml/min Est GFR ( Amer) ml/min Est GFR (Non-Af Amer) ml/min BUN/Creatinine Ratio (10-20) Glucose (70-99(Fasting)) mg/dl Lactate (0.4-2.0) mmol/L Calcium (8.5-10.1) mg/dl Magnesium 1.7 (1.7-2.4) mg/dl Total Bilirubin (0.2-1.0) mg/dl AST (13-39) U/L ALT (7-52) U/L Alkaline Phosphatase (34-104) U/L Ammonia (18-72) umol/L Troponin I High Sens (0-14) pg/ml Total Protein (6.0-8.3) gm/dl Albumin (3.4-5.0) gm/dl Globulin (2.5-4.0) gm/dl Albumin/Globulin Ratio (0.9-2) Lipase (11-82) U/L TSH 1.888 (0.300-4.500) uIu/ml Ethyl Alcohol mg/dL (<10.0) mg/dl SARS-CoV-2, RNA, NAAT NEGATIVE (NEGATIVE) 03/02/22 Range/Units 00:46 WBC (4.8-10.8) K/ul RBC (3.93-5.22) M/uL Hgb 7.6 L (12.0-16.0) g/dl Hct 24.6 L (34.1-44.9) % MCV (80.0-100.0) fL MCH (25.0-34.0) pg MCHC (32.0-36.0) g/dL RDW Std Deviation (36.4-46.3) fL RDW Coeff of Chetan (11.5-14.5) % Plt Count (130-400) K/uL MPV (9.4-12.3) fL Immature Gran % (Auto) % Neut % (Auto) % Lymph % (Auto) % Clayton % (Auto) % Eos % (Auto) % Baso % (Auto) % Neut # (Auto) (1.4-6.5) K/uL Lymph # (Auto) (1.2-3.4) K/uL Clayton # (Auto) (0.24-0.82) K/uL Eos # (Auto) (0-0.50) K/uL Baso # (Auto) (0-0.2) K/uL Immature Gran # (Auto) (0.00-0.02) K/uL Polychromasia Anisocytosis PT (9.0-12.0) Seconds INR (0.9-1.1) APTT (21.0-31.0) Seconds PTT Ratio Sodium (136-145) mmol/L Potassium (3.5-5.1) mmol/L Chloride (98-107) mmol/L Carbon Dioxide (21-32) mmol/L Anion Gap (3-11) BUN (6-23) mg/dl Creatinine (0.6-1.2) mg/dl Est Cr Clr Drug Dosing ml/min Est GFR ( Amer) ml/min Est GFR (Non-Af Amer) ml/min BUN/Creatinine Ratio (10-20) Glucose (70-99(Fasting)) mg/dl Lactate (0.4-2.0) mmol/L Calcium (8.5-10.1) mg/dl Magnesium (1.7-2.4) mg/dl Total Bilirubin (0.2-1.0) mg/dl AST (13-39) U/L ALT (7-52) U/L Alkaline Phosphatase (34-104) U/L Ammonia (18-72) umol/L Troponin I High Sens (0-14) pg/ml Total Protein (6.0-8.3) gm/dl Albumin (3.4-5.0) gm/dl Globulin (2.5-4.0) gm/dl Albumin/Globulin Ratio (0.9-2) Lipase (11-82) U/L TSH (0.300-4.500) uIu/ml Ethyl Alcohol mg/dL (<10.0) mg/dl SARS-CoV-2, RNA, NAAT (NEGATIVE) Administered Medications Discontinued Medications Sodium Chloride (Nss 1000ml) 1,000 mls @ 999 mls/hr IV .Q1H1M ONE Stop: 03/01/22 22:39 Last Infusion: 03/02/22 01:37 Dose: 0 mls/hr Documented By: Admin: 03/01/22 22:22 Dose: 999 mls/hr Documented By: ANTONY Pantoprazole Sodium 80 mg/ (Dextrose) 100 mls @ 400 mls/hr IV ONE STA Stop: 03/01/22 21:53 Last Infusion: 03/02/22 01:10 Dose: 0 mls/hr Documented By: Admin: 03/02/22 00:44 Dose: 400 mls/hr Documented By: ANTONY Famotidine (Pepcid 20mg Iv Push) 20 mg in 5 mls @ 2.5 mls/min IV NOW STA Stop: 03/01/22 21:40 Last Admin: 03/01/22 22:20 Dose: 2.5 mls/min Documented By: ANTONY Ceftriaxone Sodium (Rocephin) 2,000 mg in 70 mls @ 140 mls/hr IV NOW STA Stop: 03/02/22 00:58 Last Admin: 03/02/22 01:28 Dose: 140 mls/hr Documented By: ANTONY Ioversol (Optiray 350 100ml) 100 ml IV ONCE ONE Stop: 03/01/22 23:41 Last Admin: 03/01/22 23:40 Dose: 85 ml Documented By: ALEAH Ondansetron HCl (Ondansetron Inj 2 Mg/Ml 2 Ml Vial) 4 mg IV NOW STA Stop: 03/01/22 21:40 Last Admin: 03/01/22 22:20 Dose: 4 mg Documented By: ANTONY Imaging Data Radiologist's Impression: Abdomen/Pelvis CT 03/01/22 21:39 CT SCAN OF THE ABDOMEN AND PELVIS WITH IV CONTRAST CLINICAL HISTORY: Generalized abdominal pain GI bleeding. Intoxication. COMPARISON STUDY: Abdominal CT dated 05/26/2021. TECHNIQUE: Following the IV administration of 85 cc of Optiray 350, CT scan of the abdomen and pelvis is performed from the lung bases to the proximal femora. Images are reviewed in the axial, sagittal, and coronal planes. IV contrast was administered without complication. A dose lowering technique was utilized adhering to the principles of ALARA. The examination is degraded by motion artifact, as well as by streak artifact from the arms which could not be elevated above the abdomen. There is also significant streak artifact from an implanted device in the right lower quadrant abdominal wall. CT DOSE: 405.14 mGy.cm FINDINGS: Lung bases: The heart is top normal in size and without pericardial effusion. There is elevation of the right hemidiaphragm with bibasilar scarring/atelectasis. No airspace consolidation or pleural effusion is identified. Liver: The contrast-enhanced liver is cirrhotic morphology and heterogeneous in attenuation. Hepatic attenuation is diminished indicating steatosis. There is nodularity of the hepatic surface contour. There is no intrahepatic biliary ductal dilatation. The hepatic veins and portal veins are patent. There is perisplenic collaterals and recanalization of the periumbilical vein. Gallbladder: Surgically absent and clips in the gallbladder fossa. Spleen: The spleen is enlarged measuring 14 cm in length. Pancreas: Atrophic and grossly unremarkable. Adrenal glands: Unremarkable. Kidneys: The contrast enhanced kidneys are normal in size and without hydronephrosis. The kidneys enhance symmetrically. Abdominal vasculature: The abdominal aorta is normal in course and caliber. Bowel: Postsurgical change is noted in the stomach consistent with a Jeffy-en-Y gastric bypass procedure. Wall thickening is seen throughout the colon and small bowel loops. No obstruction is identified. The appendix is not identified and reported surgically absent Peritoneum: There is a moderate to large volume of abdominopelvic ascites. No intraperitoneal free air is seen. Lymphadenopathy: None. Pelvic viscera: The bladder is normal as visualized. The uterus is surgically absent. No adnexal lesion is seen. Skeletal structures: The skeletal structures are osteopenic. There are numerous chronic thoracolumbar compression deformities. These are similar to before 1222 examination. Moderate lumbosacral spinal lordosis is observed. No lytic or blastic lesions are seen. There is chronic compression deformity of the left proximal femur with intertrochanteric and intramedullary nails in place. 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 There are healed left pubic ring fractures as well as chronic posttraumatic deformity of the sacrum. There are numerous chronic social bilateral rib fractures. Chronic compression deformity and postoperative changes partially visualized in the left wrist which overlies the abdomen. An implanted intrathecal device is present in the right lower quadrant abdominal wall. The catheter or leads do not enter the central spinal canal. IMPRESSION: 1. The liver is cirrhotic in morphology and markedly heterogeneous in attenuation. 2. A moderate to large volume of abdominopelvic ascites, splenomegaly, upper ab dominal collaterals, and recanalization of the periumbilical vein indicate portal hypertension. 3. There is mild diffuse wall thickening/edema seen. The small bowel and colon. This could be due to cirrhosis and hyperproteinemic state. Correlate fluid from the nonspecific enterocolitis. 4. Additional findings as above. ACT 112: Negative or not required by law. Electronically signed by: Herbie Reese M.D. 03/02/2022 12:17 AM Chest X-Ray 03/02/22 00:30 SINGLE VIEW CHEST CLINICAL HISTORY: Hyponatremia. FINDINGS: An AP, portable, upright chest radiograph is compared to study dated 03/18/2021. The cardiomediastinal silhouette is unremarkable. There is chronic elevation of the right hemidiaphragm with bibasilar atelectasis. No airspace consolidation or large pleural effusion is identified. No pneumothorax is seen. The skeletal structures are osteopenic. There are chronic/healed bilateral rib fractures.. IMPRESSION: No active disease in the chest. ACT 112: Negative or not required by law. Electronically signed by: Herbie Reese M.D. 03/02/2022 1:09 AM Discharge Plan Visit Data Chief Complaint: Abdominal Pain ED Provider: Theresa Quiroz ED Midlevel Provider: Nani Booker Discharge Problem: Alcoholic cirrhosis, Alcoholism, Alcohol use, Chronic anemia, Hematemesis, Abdominal pain, acute, Acute hyponatremia Patient Disposition: Admitted As Inpatient Condition: Fair Forms Stand Alone Forms: My [facility] Prescriptions Prescriptions: No Action loperamide 2 mg capsule 2 mg PO Q8H PRN (Reason: Diarrhea) colestipol 1 gram Tablet 2 g PO BID 30 Days Qty: 120 0RF hydroxyzine HCl 25 mg tablet 25 - 50 mg PO BID PRN (Reason: Anxiety) ropinirole 0.25 mg tablet 0.25 mg PO HS midodrine 5 mg tablet 5 mg PO TID Qty: 90 2RF Rx Instructions: do not give last dose of day after 6PM or within 4 hrs of bedtime Creon 36,000-114,000- 180,000 unit Capsule,Delayed Release(Dr/Ec) 1 cap PO QID Qty: 120 2RF gabapentin 400 mg capsule 400 mg PO QID furosemide 40 mg tablet 40 mg PO BID spironolactone 100 mg tablet 100 mg PO DAILY lidocaine 5 % adhesive patch,medicated 1 patch transdermal QAM PRN (Reason: Pain) lactulose 10 gram/15 mL solution 30 ml PO TID trazodone 50 mg tablet 50 mg PO QPM gabapentin 600 mg tablet 600 mg PO HS Rx Instructions: take along with 100mg gabapentin 100 mg capsule 100 mg PO HS Rx Instructions: take along with 600mg ondansetron HCl 4 mg tablet 4 mg PO Q8 PRN (Reason: Nausea And Vomiting) citalopram 20 mg tablet 20 mg PO QAM omeprazole 20 mg capsule,delayed release(DR/EC) 20 mg PO BID PRN (Reason: Heartburn) diclofenac sodium 1 % gel 1 ea TOPICAL BID PRN (Reason: Pain) Xifaxan 550 mg tablet 550 mg PO BID Referrals Referrals: Filiberto Moya [Primary Care Provider] - : Alcoholic cirrhosis Qualifiers: Ascites presence: with ascites Qualified Code(s): K70.31 - Alcoholic cirrhosis of liver with ascites
[2022-03-02] MEDS ORDERED: ALBUMIN 25% 100 mL 25 GM/100 ML VIAL IV ONE (02:15)
[2022-03-02] MEDS ORDERED: SODIUM CHLORIDE 0.9% 250 ML IV PRN (02:16)
--- NOTE | 2022-03-02 02:18 | History & Physical Report ---
Date of Service March 02, 2022 Assessment & Plan (1) Abdominal pain: Plan: Multifactorial Recurrent GI B (combined UGI B/L GIB) Abdominal ascites secondary to decompensated alcoholic cirrhosis, possible SBP, no sepsis for now Ongoing alcohol abuse, medication noncompliance Acute on chronic anemia Hemoglobin drop from baseline secondary to GI bleed Hyponatremia secondary to illness chronic pancytopenia secondary to alcoholism chronic pain as per records Narcotic abuse as per records. Hypothyroidism, euthyroid as of today's TSH, currently not on maintenance medications past tobacco abuse. Medical telemetry IV PPI Ceftriaxone, Albumin for possible SBP GI consult Re: GI bleed, decompensated cirrhosis Serial H&H, transfuse PRBC if hemoglobin less than 8 and or for symptomatic anemia Hyponatremia work-up Careful correction of sodium May need Nephrology consultation Palliative care consultation RE discuss goals of care and to answer patient questions regarding hospice per phone conversation with [facility] palliative care provider last year. DT precautions, initiate JAZ S if with signs of alcohol withdrawal Judicious narcotic use given history narcotic abuse as per records DVT prophylaxis. SCDs RE thrombocytopenia Full code Text document was generated using [employer] voice recognition software. It may contain grammatical or spelling errors. Kindly contact undersigned for clarification of any documentation item in question. History of Present Illness Chief Complaint: Abdominal pain, hematemesis Primary Care Provider: Filiberto Moya History obtained from patient and records. Medical history significant for alcoholic cirrhosis, ongoing alcohol abuse, history of esophageal/gastric varices, portal hypertension, chronic pancytopenia as per records (baseline hemoglobin 9-10), chronic pain as per records, history seizures as per records, history thoracic/lumbar compression fracture, hypothyroidism, past tobacco abuse. Recent confinement [facility] May 2021 for decompensated cirrhosis and UGIB. Patient transferred from [facility]. EGD showed a scar in the lower third of esophagus from prior banding. Gastric bypass with intact staple line. GJ anastomosis characterized by healthy mucosa. Stomach endoclips noted. No evidence of active or recent GI bleed as per documentation. Colonoscopy was normal. SBP ruled out by IR guided paracentesis. Patient completed Cipro prophylaxis course. Patient refused PT, rehab placement as per discharge note. Shortly after discharge, patient received a call from [facility] palliative medicine to discuss possible hospice. Patient resumed EtOH intake upon return home. Has not been able to follow-up with PCP. Ran out of of home medications a few months ago. Patient noted increasing abdominal distention the last few weeks. Today, patient had sudden onset hematemesis and hematochezia, not diarrhea as per patient. Worsening abdominal pain, no fever, no chills. Patient denies unusual chest pain, SOB, headache. Patient brought to ER for worsening symptoms. IV Protonix administered at the ER. 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 Allergies Allergy/AdvReac Type Severity Reaction Status Date / Time diphenhydramine Allergy Severe seizures/it Verified 03/02/22 01:03 mya/tremo rs bupropion Allergy Intermediate Palpitation Verified 03/02/22 01:03 s clarithromycin Allergy Intermediate HIVES Verified 03/02/22 01:03 aspirin Allergy Mild hives/ringing Verified 03/02/22 01:03 of ears oxaprozin Allergy Mild nausea/vomi Verified 03/02/22 01:03 ting salicylates Allergy Mild ringing in Verified 03/02/22 01:03 ears/hives Home Medications Medication Instructions Recorded Confirmed Type loperamide 2 mg capsule 2 mg PO Q8H PRN Diarrhea 09/11/19 03/02/22 History colestipol 1 gram tablet 2 g PO BID 30 days #120 tabs 11/09/19 03/02/22 Rx hydroxyzine HCl 25 mg tablet 25 - 50 mg PO BID PRN Anxiety 05/30/20 03/02/22 History ropinirole 0.25 mg tablet 0.25 mg PO HS 02/06/21 03/02/22 History ubgvxb-[id number]-hmkuvvc 1 cap PO QID #120 caps 03/22/21 03/02/22 Rx 36,000-114,000-180,000 unit capsule,delay rel (Creon) midodrine 5 mg tablet 5 mg PO TID #90 tabs 03/22/21 03/02/22 Rx furosemide 40 mg tablet 40 mg PO BID 05/26/21 03/02/22 History gabapentin 400 mg capsule 400 mg PO QID 05/26/21 03/02/22 History lactulose 10 gram/15 mL oral 30 ml PO TID 05/26/21 03/02/22 History solution lidocaine 5 % topical patch 1 patch transdermal QAM PRN Pain 05/26/21 03/02/22 History spironolactone 100 mg tablet 100 mg PO DAILY 05/26/21 03/02/22 History citalopram 20 mg tablet 20 mg PO QAM 03/02/22 03/02/22 History diclofenac sodium 1 % topical gel 1 ea topical BID PRN Pain 03/02/22 03/02/22 History gabapentin 100 mg capsule 100 mg PO HS 03/02/22 03/02/22 History gabapentin 600 mg tablet 600 mg PO HS 03/02/22 03/02/22 History omeprazole 20 mg capsule,delayed 20 mg PO BID PRN Heartburn 03/02/22 03/02/22 History release ondansetron HCl 4 mg tablet 4 mg PO Q8 PRN Nausea And Vomiting 03/02/22 03/02/22 History rifaximin 550 mg tablet (Xifaxan) 550 mg PO BID 03/02/22 03/02/22 History trazodone 50 mg tablet 50 mg PO QPM 03/02/22 03/02/22 History Past Med/Surg History Medical History Alcohol abuse hx of Anxiety Anxiety Chronic pain Cirrhosis Degenerative disc disease Esophageal varices with banding Factitious disorder Fibromyalgia Hypomagnesemia Lumbago Multiple sclerosis Opiate addiction HX OF AND NO PROBLEMS NOW Opiate misuse Pancreatitis Pelvis fracture HX OF CRUSHED PELVIS - FROM ACCIDENT FALLING INTO DUMPSTER CHRONIC PAIN Presence of intrathecal pump PUMP IN PLACE AND NOT WORKING IT WAS TURNED OFF!!! containing morphine 0.189mg/day and fentanyl 2.52mcg/day miminimal rate per pt "it doesnt work I haven't been able to afford the medication for 3 years now"?? Seizures LAST ONE SEVERAL MONTHS AGO -- TAKES GABAPENTIN FOLLOW WITH DOCTOR KATHARINE ABRAHAM FROM [place] Stenosis of surgical anastomosis site of digestive tract Surgical History History of cholecystectomy History of colonoscopy History of esophagogastroduodenoscopy (EGD) History of open reduction and internal fixation (ORIF) procedure left arm/left leg--hardware in place History of Jeffy-en-Y gastric bypass History of tooth extraction all teeth removed History of total hysterectomy with bilateral salpingo-oophorectomy (BSO) Hx of laparoscopy FOR ENDOMETRIOSIS Hx of resection of small bowel DUE TO ENDOMETRIOSIS Family History Other Aneurysm Cancer No family history of adverse response to anesthesia Stroke Social History Smoking Status: Never smoker Tobacco Type: Cigarettes Second Hand Exposure: Yes; Hx Alcohol Use: Yes Alcohol type: beer Hx Substance Use: No Preferred Language: Romanian Communication Ability: Effective Pastry Assistant Required: No Beliefs That Will Affect Care: None marital status: Current Living Situation: Alone and Other Current Living Situation Comment: lives with fiance and has home health PT and personal consultant How many Children do You have: 3 Feels Safe at Home: Yes Assistive Devices: Raised Toilet Seat, Special Shoe and Walker Review of Systems Review of Systems: As per HPI, all other systems reviewed and negative Physical Exam Physical Exam: GENERAL: Slightly uncomfortable, pleasant, no respiratory distress SKIN: Pallor, warm HEENT: Pale palpebral conjunctivae, no ptosis, dry buccal mucosa NECK : Supple, no tenderness CHEST : Decreased breath sounds, no tenderness HEART : RRR, no obvious murmurs ABDOMEN: Marked distention, central abdominal tenderness, positive fluid wave EXTREMITIES : Minimal LE swelling, no LE tenderness, no other conspicuous deformities noted NEUROLOGIC : Coherent, no facial asymmetry, gait and stance not assessed Results & Data Results & Data ([facility]) Vital Signs (Past 12 Hours) Vital Signs Temp Pulse Resp BP Pulse Ox O2 Del Method 03/01/22 23:15 92 H 18 95 03/01/22 23:00 83 22 98 Room Air 03/01/22 22:45 101 H 20 97 Room Air 03/01/22 22:31 126/80 03/01/22 22:31 93 H 22 97 Room Air 03/01/22 22:30 99 H 24 96 Room Air 03/01/22 22:15 95 H 20 97 Room Air 03/01/22 22:23 96 H 18 96 Room Air 03/01/22 22:00 99 H 19 96 Room Air 03/01/22 22:00 132/87 03/01/22 21:45 100 H 17 95 Room Air 03/01/22 21:43 97 H 18 96 Room Air 03/01/22 21:43 128/83 03/01/22 21:30 95 H 22 03/01/22 21:16 0 L 18 98 Room Air 03/01/22 20:56 37.6 C 94 H 18 128/72 98 Room Air Laboratory Results Laboratory Results WBC 3.08 K/ul (4.8-10.8) L 03/01/22 21:42 RBC 3.63 M/uL (3.93-5.22) L 03/01/22 21:42 Hgb 7.6 g/dl (12.0-16.0) L 03/02/22 00:46 Hct 24.6 % (34.1-44.9) L 03/02/22 00:46 MCV 77.1 fL (80.0-100.0) L 03/01/22 21:42 MCH 24.2 pg (25.0-34.0) L 03/01/22 21:42 MCHC 31.4 g/dL (32.0-36.0) L 03/01/22 21:42 RDW Std Deviation 72.3 fL (36.4-46.3) H 03/01/22 21:42 RDW Coeff of Chetan 26.8 % (11.5-14.5) H 03/01/22 21:42 Plt Count 123 K/uL (130-400) L 03/01/22 21:42 MPV 10.0 fL (9.4-12.3) 03/01/22 21:42 Immature Gran % (Auto) 0.3 % 03/01/22 21:42 Neut % (Auto) 68.2 % 03/01/22 21:42 Lymph % (Auto) 23.1 % 03/01/22 21:42 [place] % (Auto) 7.8 % 03/01/22 21:42 Eos % (Auto) 0.3 % 03/01/22 21:42 Baso % (Auto) 0.3 % 03/01/22 21:42 Neut # (Auto) 2.10 K/uL (1.4-6.5) 03/01/22 21:42 Lymph # (Auto) 0.71 K/uL (1.2-3.4) L 01/16/23 21:42 [place] # (Auto) 0.24 K/uL (0.24-0.82) 03/01/22 21:42 Eos # (Auto) 0.01 K/uL (0-0.50) 03/01/22 21:42 Baso # (Auto) 0.01 K/uL (0-0.2) 03/01/22 21:42 Immature Gran # (Auto) 0.01 K/uL (0.00-0.02) 03/01/22 21:42 Polychromasia 1+ 03/01/22 21:42 Anisocytosis Present 03/01/22 21:42 PT 12.4 Seconds (9.0-12.0) H 03/01/22 21:42 INR 1.2 (0.9-1.1) H 03/01/22 21:42 APTT 23.4 Seconds (21.0-31.0) 03/01/22 21:42 PTT Ratio 0.9 03/01/22 21:42 Sodium 128 mmol/L (136-145) L 03/01/22 21:42 Potassium 3.5 mmol/L (3.5-5.1) 03/01/22 21:42 Chloride 93 mmol/L (98-107) L 03/01/22 21:42 Carbon Dioxide 21 mmol/L (21-32) 03/01/22 21:42 Anion Gap 14 (3-11) H 03/01/22 21:42 BUN 5 mg/dl (6-23) L 03/01/22 21:42 Creatinine 0.32 mg/dl (0.6-1.2) L 03/01/22 21:42 Est Cr Clr Drug Dosing 181.6 ml/min 03/01/22 21:42 Est GFR ( Amer) 144.2 ml/min 03/01/22 21:42 Est GFR (Non-Af Amer) 124.4 ml/min 03/01/22 21:42 BUN/Creatinine Ratio 15.6 (10-20) 03/01/22 21:42 Glucose 72 mg/dl (70-99(Fasting)) 03/01/22 21:42 Lactate 1.9 mmol/L (0.4-2.0) 03/01/22 21:42 Calcium 8.1 mg/dl (8.5-10.1) L 03/01/22 21:42 Magnesium 1.7 mg/dl (1.7-2.4) 03/01/22 21:42 Total Bilirubin 3.1 mg/dl (0.2-1.0) H 03/01/22 21:42 AST 33 U/L (13-39) 03/01/22 21:42 ALT 12 U/L (7-52) 03/01/22 21:42 Alkaline Phosphatase 156 U/L (34-104) H 03/01/22 21:42 Ammonia 31.0 umol/L (18-72) 03/01/22 21:42 Troponin I High Sens 11.0 pg/ml (0-14) 03/01/22 21:42 Total Protein 7.1 gm/dl (6.0-8.3) 03/01/22 21:42 Albumin 3.2 gm/dl (3.4-5.0) L 03/01/22 21:42 Globulin 3.9 gm/dl (2.5-4.0) 03/01/22 21:42 Albumin/Globulin Ratio 0.8 (0.9-2) L 03/01/22 21:42 Lipase 5 U/L (11-82) L 03/01/22 21:42 TSH 1.888 uIu/ml (0.300-4.500) 03/01/22 21:42 Ethyl Alcohol mg/dL 96.8 mg/dl (<10.0) H 03/01/22 21:42 SARS-CoV-2, RNA, NAAT NEGATIVE (NEGATIVE) 03/01/22 22:20 Crossmatch See Detail 03/02/22 00:46 Impressions Abdomen/Pelvis CT 03/01/22 21:39 CT SCAN OF THE ABDOMEN AND PELVIS WITH IV CONTRAST CLINICAL HISTORY: Generalized abdominal pain GI bleeding. Intoxication. COMPARISON STUDY: Abdominal CT dated 05/26/2021. TECHNIQUE: Following the IV administration of 85 cc of Optiray 350, CT scan of the abdomen and pelvis is performed from the lung bases to the proximal femora. Images are reviewed in the axial, sagittal, and coronal planes. IV contrast was administered without complication. A dose lowering technique was utilized a dhering to the principles of ALARA. The examination is degraded by motion artifact, as well as by streak artifact from the arms which could not be elevated above the abdomen. There is also significant streak artifact from an implanted device in the right lower quadrant abdominal wall. CT DOSE: 405.14 mGy.cm FINDINGS: Lung bases: The heart is top normal in size and without pericardial effusion. There is elevation of the right hemidiaphragm with bibasilar scarring/atelectasis. No airspace consolidation or pleural effusion is identified. Liver: The contrast-enhanced liver is cirrhotic morphology and heterogeneous in attenuation. Hepatic attenuation is diminished indicating steatosis. There is nodularity of the hepatic surface contour. There is no intrahepatic biliary ductal dilatation. The hepatic veins and portal veins are patent. There is perisplenic collaterals and recanalization of the periumbilical vein. Gallbladder: Surgically absent and clips in the gallbladder fossa. Spleen: The spleen is enlarged measuring 14 cm in length. Pancreas: Atrophic and grossly unremarkable. Adrenal glands: Unremarkable. Kidneys: The contrast enhanced kidneys are normal in size and without hydronephrosis. The kidneys enhance symmetrically. Abdominal vasculature: The abdominal aorta is normal in course and caliber. Bowel: Postsurgical change is noted in the stomach consistent with a Jeffy-en-Y gastric bypass procedure. Wall thickening is seen throughout the colon and small bowel loops. No obstruction is identified. The appendix is not identified and reported surgically absent Peritoneum: There is a moderate to large volume of abdominopelvic ascites. No intraperitoneal free air is seen. Lymphadenopathy: None. Pelvic viscera: The bladder is normal as visualized. The uterus is surgically absent. No adnexal lesion is seen. Skeletal structures: The skeletal structures are osteopenic. There are numerous chronic thoracolumbar compression deformities. These are similar to before 1222 examination. Moderate lumbosacral spinal lordosis is observed. No lytic or blastic lesions are seen. There is chronic compression deformity of the left proximal femur with intertrochanteric and intramedullary nails in place. 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 There are healed left pubic ring fractures as well as chronic posttr aumatic deformity of the sacrum. There are numerous chronic social bilateral rib fractures. Chronic compression deformity and postoperative changes partially visualized in the left wrist which overlies the abdomen. An implanted intrathecal device is present in the right lower quadrant abdominal wall. The catheter or leads do not enter the central spinal canal. IMPRESSION: 1. The liver is cirrhotic in morphology and markedly heterogeneous in attenuation. 2. A moderate to large volume of abdominopelvic ascites, splenomegaly, upper abdominal collaterals, and recanalization of the periumbilical vein indicate portal hypertension. 3. There is mild diffuse wall thickening/edema seen. The small bowel and colon. This could be due to cirrhosis and hyperproteinemic state. Correlate fluid from the nonspecific enterocolitis. 4. Additional findings as above. ACT 112: Negative or not required by law. Electronically signed by: Herbie Reese M.D. 03/02/2022 12:17 AM Chest X-Ray 03/02/22 00:30 SINGLE VIEW CHEST CLINICAL HISTORY: Hyponatremia. FINDINGS: An AP, portable, upright chest radiograph is compared to study dated 03/18/2021. The cardiomediastinal silhouette is unremarkable. There is chronic elevation of the right hemidiaphragm with bibasilar atelectasis. No airspace consolidation or large pleural effusion is identified. No pneumothorax is seen. The skeletal structures are osteopenic. There are chronic/healed bilateral rib fractures.. IMPRESSION: No active disease in the chest. ACT 112: Negative or not required by law. Electronically signed by: Herbie Reese M.D. 03/02/2022 1:09 AM Diagnostic Findings EKG as per my interpretation : Rate 100, NSR, LAD, LAFB, T wave flattening inferior leads
[2022-03-02] MEDS ORDERED: ACETAMINOPHEN 325 MG TAB PO PRN (02:27)
[2022-03-02] MEDS: oxyCODONE HCL IR 5 MG TAB (IMMEDIATE RELEASE) PO PRN ×3 (03:35→18:44)
[2022-03-02] MEDS ORDERED: LORazepam 2 MG/1 ML VIAL IV PRN (04:45)
[2022-03-02] MEDS ORDERED: hydrOXYzine HCl 25 MG TAB PO PRN (04:45)
[2022-03-02] MEDS: GABAPENTIN 400 MG CAP PO SCH ×4 (05:02→21:03)
[2022-03-02] MEDS: PANTOprazole 40 MG in DEXTROSE 5% 100 ML IV SCH ×4 (05:39→21:04)
[2022-03-02] MEDS ORDERED: Nursing to Pharmacy Communication SCH (06:45)
[2022-03-02] MEDS: CITALOPRAM 20 MG TAB PO SCH (08:10)
[2022-03-02] MEDS: MIDODRINE HCL 2.5 MG TAB PO SCH ×3 (08:10→16:59)
[2022-03-02] MEDS: rifAXIMin 550 MG TABLET PO SCH ×2 (08:10→21:02)
[2022-03-02] MEDS: LACTULOSE SYRUP 20 GM/30 ML UDC PO SCH ×3 (08:10→21:02)
[2022-03-02 08:38] LABS: Hematocrit (blood only) 27.4 % (34.1-44.9); Mean Corpuscular Hemoglobin 26.1 pg (25.0-34.0); Mean Corpuscular Hgb Conc 32.8 g/dL (32.0-36.0); Mean Corpuscular Volume 79.4 fL (80.0-100.0); Mean Platelet Volume 9.8 fL (9.4-12.3); Nucleated RBC # (auto) 0.02 K/uL (0-0); Nucleated RBC % (auto) 0.9 %; Platelet Count 101 K/uL (130-400); RDW Standard Deviation 71.2 fL (36.4-46.3); Red Blood Count 3.45 M/uL (3.93-5.22); White Blood Count 2.11 K/ul (4.8-10.8)
[2022-03-02] MEDS ORDERED: ONDANSETRON INJ 2 MG/ML 2 ML VIAL ONE (08:43)
[2022-03-02 08:49] LABS: Albumin Level 3.2 gm/dl (3.4-5.0); BUN Creatinine Ratio 13.5 (10-20); Bilirubin,Total 2.7 mg/dl (0.2-1.0); Calcium 7.9 mg/dl (8.5-10.1); Est GFR (African American) 137.5 ml/min; Est GFR (Non-African American) 118.6 ml/min; Globulin 3.1 gm/dl (2.5-4.0); Potassium 3.2 mmol/L (3.5-5.1); Total Protein 6.3 gm/dl (6.0-8.3)
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
[2022-03-02 09:10] LABS: Basophilic Stippling 1+; Basophils # (auto) 0.01 K/uL (0-0.2); Basophils % (auto) 0.5 %; Eosinophils # (auto) 0.01 K/uL (0-0.50); Eosinophils % (auto) 0.5 %; Immature Granulocytes # (auto) 0.01 K/uL (0.00-0.02); Immature Granulocytes % (auto) 0.5 %; Lymphocytes # (auto) 0.35 K/uL (1.2-3.4); Lymphocytes % (auto) 16.6 %; Monocytes % (auto) 14.2 %; Neutrophils # (auto) 1.43 K/uL (1.4-6.5); Neutrophils % (auto) 67.7 %; Polychromasia 1+
[2022-03-02] MEDS: COLESTIPOL HCL 1 GM TAB PO SCH ×2 (09:31→21:00)
[2022-03-02] MEDS ORDERED: POTASSIUM CHLORIDE CRTAB 20 MEQ TABCR PO ONE (10:26)
[2022-03-02] MEDS: ALBUMIN 25% 100 mL 25 GM/100 ML VIAL IV SCH ×2 (11:20→18:40)
--- NOTE | 2022-03-02 15:41 | Hospitalist Progress Note ---
Date of Service March 02, 2022 Assessment & Plan (1) Abdominal pain: Plan: Abdominal ascites Secondary to decompensated alcoholic cirrhosis Rule out SBP H/O end-stage liver disease, esophageal varices, portal hypertension, gastric varices S/p embolization MELD 18 Plan for abdominal paracentesis today Continue ceftriaxone for now Also on IV albumin Appreciate GI input Continue rifaximin, lactulose Counseled to quit alcohol use on multiple occasions Resume home diuretics as able Low sodium diet Suspected GI bleed ? Bilious Vomiting Acute on Chronic Anemia H/O Esophageal varices, gastric varices S/p embolization S/P 1 unit PRBC Continue IV Protonix Monitor H&H Ongoing alcohol abuse Medication noncompliance Alcohol level:96.8 On alcohol withdrawal protocol Continue thiamine, folic acid Counseled to quit drinking Chronic Hyponatremia Likely multifactorial Monitor Hypokalemia Replete as needed Chronic pancytopenia Secondary to alcoholism Chronic pain H/O Narcotic abuse Avoid Narcotics as able Hypothyroidism Normal TSH Currently not on meds DVT Px: SCDs RE thrombocytopenia Code Status Full code Admission and Anticipated Discharge Date Admission Date: March 02, 2022 Subjective Patient is seen and examined in bedside States having generalized body ache Also reports abdominal distention Denies any nausea, vomiting, chest pain, dyspnea Discussed with gastroenterology today Plan for abdominal paracentesis today No other complaints Review of Systems Review of Systems: All systems reviewed & are unremarkable except as noted in Subjective Physical Exam Physical Exam: Physical Exam: Vitals signs as noted above General Appearance:Thin, Frail, Chronic ill appearing, no apparent distress Head: normocephalic, Atraumatic Eyes: normal inspection, EOMI Neck: supple, Trachea midline Respiratory/Chest: Normal breath sounds, CTA, No accessory muscle use Cardiovascular: S1, S2, + murmur Abdomen/GI:Soft, Distended, Non tender, Bowel sounds present Extremities/Musculoskeletal:normal inspection, no edema Neurologic/Psych:AAOX3, grossly no focal neurological deficits Skin: normal color, warm Results & Data Results & Data ([facility]) Vital Signs (Past 12 Hours) Vital Signs Temp Pulse Pulse Pulse Resp BP BP 03/02/22 15:25 37.4 C 90 18 03/02/22 13:28 37.1 C 81 111/68 03/02/22 10:00 87 19 141/76 H 03/02/22 09:51 91 H 18 162/104 H 03/02/22 08:08 37.4 C 85 20 123/73 03/02/22 07:39 76 16 03/02/22 07:38 75 16 113/76 03/02/22 06:30 80 18 124/76 03/02/22 06:10 37.3 C 82 18 118/74 03/02/22 05:00 79 17 119/73 03/02/22 04:30 82 20 112/73 03/02/22 04:00 86 23 124/95 03/02/22 03:45 88 20 127/90 03/02/22 03:35 37.2 C 100 H 18 129/88 BP Pulse Ox O2 Del Method 03/02/22 15:25 133/80 91 Room Air 03/02/22 13:28 96 Room Air 03/02/22 10:00 96 Room Air 03/02/22 09:51 96 Room Air 03/02/22 08:08 95 Room Air 03/02/22 07:39 95 Room Air 03/02/22 07:38 95 Room Air 03/02/22 06:30 95 Room Air 03/02/22 06:10 94 03/02/22 05:00 95 Room Air 03/02/22 04:30 97 Room Air 03/02/22 04:00 96 Room Air 03/02/22 03:45 97 Room Air 03/02/22 03:35 98 Laboratory Results Short CBC 03/01/22 03/02/22 03/02/22 Range/Units 21:42 00:46 08:03 WBC 3.08 L 2.11 L (4.8-10.8) K/ul Hgb 8.8 L 7.6 L 9.0 L (12.0-16.0) g/dl Hct 28.0 L 24.6 L 27.4 L (34.1-44.9) % Plt Count 123 L 101 L (130-400) K/uL BMP 03/01/22 03/02/22 21:42 08:03 Sodium 128 L 131 L Potassium 3.5 3.2 L Chloride 93 L 97 L Carbon Dioxide 21 23 BUN 5 L 5 L Creatinine 0.32 L 0.37 L Glucose 72 76 Calcium 8.1 L 7.9 L Liver Function 03/01/22 03/02/22 Range/Units 21:42 08:03 Total Bilirubin 3.1 H 2.7 H (0.2-1.0) mg/dl AST 33 23 (13-39) U/L ALT 12 10 (7-52) U/L Alkaline Phosphatase 156 H 117 H (34-104) U/L Albumin 3.2 L 3.2 L (3.4-5.0) gm/dl
[2022-03-02 16:09] LABS: Hematocrit (blood only) 27.7 % (34.1-44.9)
--- NOTE | 2022-03-02 17:02 | Ultrasound Report ---
PROCEDURE: Ultrasound-Guided Diagnostic/Therapeutic Paracentesis CLINICAL HISTORY: ascites MEDICATIONS: Subcutaneous Lidocaine 2%. PROCEDURE: The procedure itself was explained to the patient carefully. The patient was brought into the IR suite and a time-out was performed. The patient was positioned supine on the table. Preliminar y ultrasound of the abdomen was performed to determine a safe needle entry site. The most appropriat e approach for safe needle entry site was planned and the site for puncture was marked. The right low er quadrant was prepped and draped in the usual sterile fashion. Subcutaneous 2% lidocaine was used f or local anesthesia along the expected needle tract. Under ultrasound-guidance, an 5 [place] needle-sheath was inserted carefully into the peritoneal space towards the abdominal ascites fluid collection. The needle was removed and the sheath was conn ected to tubing and a vacuum suction device. A total of 5000 cc of serous ascites was aspirated. The sheath was removed and a sterile dressing applied. The patient tolerated the procedure well without i mmediate complications. Sample of ascites was sent for analysis. IMPRESSION: Ultrasound-guided diagnostic/therapeutic paracentesis. Electronically signed by: Roger Flores M.D. 03/02/2022 5:00 PM
[2022-03-02 19:58] LABS: Albumin Peritoneal Fluid < 1.5 gm/dl; Amylase Peritoneal Fluid < 10 U/L; Glucose Peritoneal Fluid 88 mg/dl; LDH Peritoneal Fluid 43 U/L; Total Protein Peritoneal Fluid < 3.0 gm/dl
[2022-03-02] MEDS: rOPINIRole HCL 0.25 MG TABLET PO SCH (21:03)
[2022-03-02] MEDS: traZODone HCL 50 MG TAB PO SCH (21:03)
[2022-03-02 21:13] LABS: Appearance Peritoneal Fluid Clear; Color Peritoneal Fluid Yellow; RBC Peritoneal Fluid Auto < 2000 /uL; WBC Peritoneal Fluid Auto 71 /ul (0-300)
[2022-03-02 21:19] LABS: Eosinophils, Fluid 0 %; Lymphocytes, Fluid 12 %; Mono,Macrophage,Mesothelial 73 %; Neutrophils, Fluid 15 %
[2022-03-03] MEDS ORDERED: cefTRIAXone SODIUM 2,000 MG in DEXTROSE 5% AD-VAN 50 ML IV SCH (02:30)
[2022-03-03] MEDS: cefTRIAXone SODIUM 2,000 MG in DEXTROSE 5% 50 ML IV SCH (02:53)
[2022-03-03] MEDS: ALBUMIN 25% 100 mL 25 GM/100 ML VIAL IV SCH ×3 (02:54→17:43)
[2022-03-03] MEDS: PANTOprazole 40 MG in DEXTROSE 5% 100 ML IV SCH ×4 (02:55→17:46)
[2022-03-03] MEDS: oxyCODONE HCL IR 5 MG TAB (IMMEDIATE RELEASE) PO PRN ×2 (02:57→15:02)
[2022-03-03 07:13] LABS: Appearance Urine Cloudy (Clear); Bacteria Urine Automated Negative (Negative); Blood Urine Negative (Negative); Color Urine Orange; Epithelial Cell Urine Auto >30 /lpf (0-5); Glucose Urine UA Negative (Negative); Ketones Urine 1+ (Negative); Leukocyte Esterase Urine 1+ (Negative); Nitrite Urine Positive (Negative); Protein Urine 1+ (Negative); Specific Gravity Urine 1.037 (1.000-1.030); Urobilinogen Urine Negative (Negative); pH Urine 6.5 (4.5-7.5)
[2022-03-03 07:40] LABS: Calcium 7.9 mg/dl (8.5-10.1); Magnesium 1.5 mg/dl (1.7-2.4); Potassium 2.8 mmol/L (3.5-5.1)
[2022-03-03 07:44] LABS: Hematocrit (blood only) 24.8 % (34.1-44.9); Hemoglobin 8.1 g/dl (12.0-16.0); Mean Corpuscular Hemoglobin 26.5 pg (25.0-34.0); Mean Corpuscular Hgb Conc 32.7 g/dL (32.0-36.0); Mean Platelet Volume 10.1 fL (9.4-12.3); Platelet Count 83 K/uL (130-400); Platelet Estimate Decreased (Normal); RDW Coefficient of Variation 25.2 % (11.5-14.5); RDW Standard Deviation 73.4 fL (36.4-46.3); Red Blood Count 3.06 M/uL (3.93-5.22); White Blood Count 1.53 K/ul (4.8-10.8)
[2022-03-03 07:45] LABS: BUN Creatinine Ratio 15.2 (10-20); Creatinine Clr Calc Pharmacy 126.3 ml/min; Est GFR (Non-African American) 110.4 ml/min
[2022-03-03 07:49] LABS: Bilirubin Urine 1+ (Negative)
[2022-03-03] MEDS: MIDODRINE HCL 2.5 MG TAB PO SCH ×3 (08:02→17:47)
[2022-03-03] MEDS: FOLIC ACID 1 MG TAB PO SCH (08:02)
[2022-03-03] MEDS: GABAPENTIN 400 MG CAP PO SCH ×4 (08:02→20:43)
[2022-03-03] MEDS: THIAMINE HCL 100 MG TAB PO SCH (08:02)
[2022-03-03] MEDS: rifAXIMin 550 MG TABLET PO SCH ×2 (08:02→20:43)
[2022-03-03] MEDS: CITALOPRAM 20 MG TAB PO SCH (08:02)
[2022-03-03] MEDS: LACTULOSE SYRUP 20 GM/30 ML UDC PO SCH ×3 (08:03→20:36)
[2022-03-03] MEDS ORDERED: POTASSIUM CHLORIDE / WTR 10 MEQ/100 ML PLCT IV SCH (08:30)
[2022-03-03] MEDS: MAGNESIUM SULFATE / D5W 1 GM/100 ML BAG IV SCH ×2 (08:43→12:59)
[2022-03-03] MEDS: POTASSIUM CHLORIDE CRTAB 20 MEQ TABCR PO SCH ×2 (08:43→20:45)
[2022-03-03] MEDS: SPIRONOLACTONE 100 MG TAB PO SCH (09:16)
[2022-03-03] MEDS: COLESTIPOL HCL 1 GM TAB PO SCH (09:17)
[2022-03-03] MEDS ORDERED: POTASSIUM CHLORIDE CRTAB 20 MEQ TABCR PO ONE (14:00)
--- NOTE | 2022-03-03 14:29 | Hospitalist Progress Note ---
Date of Service March 03, 2022 Assessment & Plan (1) Abdominal pain: Plan: Abdominal ascites Secondary to decompensated alcoholic cirrhosis Rule out SBP H/O end-stage liver disease, esophageal varices, portal hypertension, gastric varices S/p embolization MELD 18 S/P abdominal paracentesis on 03/03/22 No signs of SBP Also on IV albumin Appreciate GI input Continue rifaximin, lactulose Counseled to quit alcohol use on multiple occasions Resume home diuretics as able Palliative care on board Plan patient prefers to be transition to home hospice as able Refused lactulose today Suspected GI bleed ? Bilious Vomiting Acute on Chronic Anemia H/O Esophageal varices, gastric varices S/p embolization S/P 1 unit PRBC Continue IV Protonix Monitor H&H Abnormal urinalysis Urine culture pending Empirically on Rocephin Hypokalemia Hypomagnesemia Replete electrolytes as needed Ongoing alcohol abuse Medication noncompliance Alcohol level:96.8 On alcohol withdrawal protocol Continue thiamine, folic acid Counseled to quit drinking Chronic Hyponatremia Likely multifactorial Monitor Hypokalemia Replete as needed Chronic pancytopenia Secondary to alcoholism Chronic pain H/O Narcotic abuse Avoid Narcotics as able Hypothyroidism Normal TSH Currently not on meds DVT Px: SCDs RE thrombocytopenia Code Status Full code Admission and Anticipated Discharge Date Admission Date: March 02, 2022 Subjective Patient is seen and examined in bedside States feeling better today Abdominal distention decreased Feels her breathing is improved after paracentesis Denies any bleeding issues No other complaints Denies any chest pain, nausea, vomiting, abd pain Review of Systems Review of Systems: All systems reviewed & are unremarkable except as noted in Subjective Physical Exam Physical Exam: Physical Exam: Vitals signs as noted above General Appearance:Thin, Frail, Chronic ill appearing, no apparent distress Head: normocephalic, Atraumatic Eyes: normal inspection, EOMI Neck: supple, Trachea midline Respiratory/Chest: Normal breath sounds, CTA, No accessory muscle use Cardiovascular: S1, S2, + murmur Abdomen/GI:Soft, less distended, Non tender, Bowel sounds present Extremities/Musculoskeletal:normal inspection, no edema Neurologic/Psych:AAOX3, grossly no focal neurological deficits Skin: normal color, warm Results & Data Results & Data ([facility]) Vital Signs (Past 12 Hours) Vital Signs Temp Pulse Resp BP Pulse Ox O2 Del Method 03/03/22 11:57 37.4 C 52 L 20 112/70 96 Room Air 03/03/22 07:52 37.2 C 91 H 19 114/67 92 Room Air 03/03/22 03:26 36.9 C 90 18 99/64 L 94 Room Air Laboratory Results Short CBC 03/02/22 03/03/22 Range/Units 15:55 06:28 WBC 1.53 L (4.8-10.8) K/ul Hgb 9.0 L 8.1 L (12.0-16.0) g/dl Hct 27.7 L 24.8 L (34.1-44.9) % Plt Count 83 L (130-400) K/uL BMP 03/02/22 03/03/22 15:55 06:28 Sodium 134 L 135 L Potassium 2.8 L Chloride 94 L Carbon Dioxide 25 BUN 7 Creatinine 0.46 L Glucose 125 H Calcium 7.9 L Urine 03/03/22 Range/Units 06:15 Urine Color [place] Urine Appearance Cloudy A (Clear) Urine pH 6.5 (4.5-7.5) Ur Specific [place] 1.037 H (1.000-1.030) Urine Protein 1+ H (Negative) Urine Glucose (UA) Negative (Negative)
[2022-03-03] MEDS: PROMETHAZINE HCL 6.25 MG in SODIUM CHLORIDE 0.9% 50 ML IV PRN (15:02)
[2022-03-03] MEDS: traZODone HCL 50 MG TAB PO SCH (20:42)
[2022-03-03] MEDS: rOPINIRole HCL 0.25 MG TABLET PO SCH (20:43)
[2022-03-04] MEDS: PANTOprazole 40 MG in DEXTROSE 5% 100 ML IV SCH ×2 (00:36→03:47)
[2022-03-04] MEDS: COLESTIPOL HCL 1 GM TAB PO SCH ×3 (00:37→22:45)
[2022-03-04] MEDS: cefTRIAXone SODIUM 2,000 MG in DEXTROSE 5% 50 ML IV SCH (02:15)
[2022-03-04] MEDS: ALBUMIN 25% 100 mL 25 GM/100 ML VIAL IV SCH (03:28)
--- NOTE | 2022-03-04 05:37 | Electrocardiogram Report ---
Test Reason : Blood Pressure : / mmHG Vent. Rate : 100 BPM Atrial Rate : 100 BPM P-R Int : 166 ms QRS Dur : 092 ms QT Int : 386 ms P-R-T Axes : 023 -21 045 degrees QTc Int : 497 ms Normal sinus rhythm Low voltage QRS Poor R wave progression, consider anterior SC vs. lead placement vs. LVH Prolonged QT Abnormal ECG When compared with ECG of 26-MAY-2021 13:19, Questionable change in initial forces of Anterolateral leads Confirmed by Roderick De Leon ([id number]) on 03/04/2022 5:37:27 AM Referred By: REFERRED SELF Confirmed By:Roderick De Leon
[2022-03-04 07:28] LABS: Hematocrit (blood only) 26.3 % (34.1-44.9); Hemoglobin 8.4 g/dl (12.0-16.0); Mean Corpuscular Hemoglobin 26.9 pg (25.0-34.0); Mean Corpuscular Hgb Conc 31.9 g/dL (32.0-36.0); Mean Corpuscular Volume 84.3 fL (80.0-100.0); Mean Platelet Volume 10.2 fL (9.4-12.3); Platelet Count 68 K/uL (130-400); RDW Coefficient of Variation 26.2 % (11.5-14.5); RDW Standard Deviation 78.5 fL (36.4-46.3); Red Blood Count 3.12 M/uL (3.93-5.22); White Blood Count 1.13 K/ul (4.8-10.8)
[2022-03-04] MEDS: GABAPENTIN 400 MG CAP PO SCH ×4 (07:38→20:59)
[2022-03-04] MEDS: oxyCODONE HCL IR 5 MG TAB (IMMEDIATE RELEASE) PO PRN ×4 (07:38→21:16)
[2022-03-04] MEDS: CITALOPRAM 20 MG TAB PO SCH (07:39)
[2022-03-04] MEDS: SPIRONOLACTONE 100 MG TAB PO SCH (07:39)
[2022-03-04] MEDS: rifAXIMin 550 MG TABLET PO SCH ×2 (07:39→21:02)
[2022-03-04] MEDS: FOLIC ACID 1 MG TAB PO SCH (07:39)
[2022-03-04] MEDS: MAGNESIUM OXIDE 400 MG TAB PO SCH (07:39)
[2022-03-04] MEDS: MIDODRINE HCL 2.5 MG TAB PO SCH ×3 (07:40→17:37)
[2022-03-04] MEDS: POTASSIUM CHLORIDE CRTAB 20 MEQ TABCR PO SCH (07:40)
[2022-03-04] MEDS: LACTULOSE SYRUP 20 GM/30 ML UDC PO SCH ×3 (07:40→21:00)
[2022-03-04] MEDS: THIAMINE HCL 100 MG TAB PO SCH (07:41)
[2022-03-04 07:54] LABS: BUN Creatinine Ratio 9.3 (10-20); Calcium 8.4 mg/dl (8.5-10.1); Creatinine Clr Calc Pharmacy 128.3 ml/min; Est GFR (African American) 130.9 ml/min; Est GFR (Non-African American) 112.9 ml/min; Magnesium 1.8 mg/dl (1.7-2.4); Potassium 3.7 mmol/L (3.5-5.1)
[2022-03-04] MEDS: FUROSEMIDE 40 MG TAB PO SCH ×2 (09:03→20:59)
[2022-03-04] MEDS: PANTOprazole 40 MG TAB PO SCH ×2 (09:03→21:00)
--- NOTE | 2022-03-04 13:28 | Hospitalist Progress Note ---
Date of Service March 04, 2022 Assessment & Plan (1) Abdominal pain: Plan: Abdominal ascites Secondary to decompensated alcoholic cirrhosis Rule out SBP H/O end-stage liver disease, esophageal varices, portal hypertension, gastric varices S/p embolization MELD 18 S/P abdominal paracentesis on 03/03/22 No signs of SBP Also on IV albumin Appreciate GI input Continue rifaximin, lactulose Counseled to quit alcohol use on multiple occasions Resume home diuretics Palliative care on board Plan patient prefers to be transition to home hospice as able Monitor volume status--May need repeat paracentesis Fluid restriction Suspected GI bleed ? Bilious Vomiting Acute on Chronic Anemia H/O Esophageal varices, gastric varices S/p embolization S/P 1 unit PRBC Continue IV Protonix>> transition to p.o. Protonix 40 mg twice daily Monitor H&H Abnormal urinalysis Urine culture pending Empirically on Rocephin Hypokalemia Hypomagnesemia Replete electrolytes as needed Ongoing alcohol abuse Medication noncompliance Alcohol level:96.8 On alcohol withdrawal protocol Continue thiamine, folic acid Counseled to quit drinking Chronic Hyponatremia Likely multifactorial Monitor Sodium 135 today Hypokalemia Replete as needed Chronic pancytopenia Secondary to alcoholism Chronic pain H/O Narcotic abuse Avoid Narcotics as able Hypothyroidism Normal TSH Currently not on meds DVT Px: SCDs RE thrombocytopenia Code Status Full code Admission and Anticipated Discharge Date Admission Date: March 02, 2022 Subjective Patient is seen and examined in bedside States her abdominal feels more distended today Reports her breathing gets difficult when sitting upright Denies any recurrence of hematemesis Denies any chest pain, nausea, vomiting, abd pain Urine culture pending Patient had a choking episode while taking potassium tablets today Review of Systems Review of Systems: All systems reviewed & are unremarkable except as noted in Subjective Physical Exam Physical Exam: Physical Exam: Vitals signs as noted above General Appearance:Thin, Frail, Chronic ill appearing, no apparent distress Head: normocephalic, Atraumatic Eyes: normal inspection, EOMI Neck: supple, Trachea midline Respiratory/Chest: Normal breath sounds, CTA, No accessory muscle use Cardiovascular: S1, S2, + murmur Abdomen/GI:Soft, distended, Non tender, Bowel sounds present Extremities/Musculoskeletal:normal inspection, no edema Neurologic/Psych:AAOX3, grossly no focal neurological deficits Skin: normal color, warm Results & Data Results & Data ([facility]) Vital Signs (Past 12 Hours) Vital Signs Temp Pulse Pulse Resp BP Pulse Ox O2 Del Method 03/04/22 11:48 37.3 C 88 18 112/77 93 Room Air 03/04/22 08:04 36.9 C 80 12 118/64 94 Room Air 03/04/22 07:23 89 03/04/22 04:16 80 03/04/22 02:39 37.5 C 77 16 107/68 92 Room Air Laboratory Results Short CBC 03/04/22 Range/Units 06:29 WBC 1.13 L (4.8-10.8) K/ul Hgb 8.4 L (12.0-16.0) g/dl Hct 26.3 L (34.1-44.9) % Plt Count 68 L (130-400) K/uL BMP 03/04/22 06:29 Sodium 135 L Potassium 3.7 D Chloride 103 Carbon Dioxide 22 BUN 4 L Creatinine 0.43 L Glucose 92 Calcium 8.4 L
[2022-03-04] MEDS ORDERED: Flu Vaccine (Fluarix) 0.5mL SYR (Standard Dose) IM ONE (15:15)
[2022-03-04] MEDS ORDERED: POTASSIUM CHLORIDE 10 MEQ TABCR PO SCH (21:00)
[2022-03-04] MEDS: POTASSIUM CHLORIDE 20 MEQ/15 ML UDC PO SCH (21:00)
[2022-03-04] MEDS: rOPINIRole HCL 0.25 MG TABLET PO SCH (21:01)
[2022-03-04] MEDS: traZODone HCL 50 MG TAB PO SCH (21:17)
[2022-03-05] MEDS ORDERED: oxyCODONE HCL IR 5 MG TAB (IMMEDIATE RELEASE) PO STA (02:15)
[2022-03-05] MEDS: cefTRIAXone SODIUM 2,000 MG in DEXTROSE 5% 50 ML IV SCH (02:21)
[2022-03-05] MEDS: DICLOFENAC SOD 1% GEL 100 GM TUBE EXT PRN ×2 (02:43→20:14)
[2022-03-05 08:50] LABS: Hematocrit (blood only) 26.8 % (34.1-44.9); Hemoglobin 8.5 g/dl (12.0-16.0); Mean Corpuscular Hgb Conc 31.7 g/dL (32.0-36.0); Mean Corpuscular Volume 85.1 fL (80.0-100.0); Mean Platelet Volume 9.7 fL (9.4-12.3); Platelet Count 67 K/uL (130-400); RDW Coefficient of Variation 26.6 % (11.5-14.5); RDW Standard Deviation 82.8 fL (36.4-46.3); Red Blood Count 3.15 M/uL (3.93-5.22); White Blood Count 1.37 K/ul (4.8-10.8)
[2022-03-05 08:51] LABS: BUN Creatinine Ratio 11.6 (10-20); Calcium 7.9 mg/dl (8.5-10.1); Est GFR (African American) 130.9 ml/min; Est GFR (Non-African American) 112.9 ml/min; Magnesium 1.4 mg/dl (1.7-2.4); Potassium 3.6 mmol/L (3.5-5.1)
[2022-03-05] MEDS: GABAPENTIN 400 MG CAP PO SCH ×4 (08:55→19:59)
[2022-03-05] MEDS: FOLIC ACID 1 MG TAB PO SCH (08:55)
[2022-03-05] MEDS: FUROSEMIDE 40 MG TAB PO SCH ×2 (08:55→19:59)
[2022-03-05] MEDS: CITALOPRAM 20 MG TAB PO SCH (08:55)
[2022-03-05] MEDS: PANTOprazole 40 MG TAB PO SCH ×2 (08:56→20:00)
[2022-03-05] MEDS: LACTULOSE SYRUP 20 GM/30 ML UDC PO SCH ×3 (08:56→20:01)
[2022-03-05] MEDS: MAGNESIUM OXIDE 400 MG TAB PO SCH (08:56)
[2022-03-05] MEDS: MIDODRINE HCL 2.5 MG TAB PO SCH ×3 (08:56→17:33)
[2022-03-05] MEDS: POTASSIUM CHLORIDE 20 MEQ/15 ML UDC PO SCH ×2 (08:57→19:57)
[2022-03-05] MEDS: rifAXIMin 550 MG TABLET PO SCH ×2 (08:57→20:00)
[2022-03-05] MEDS: SPIRONOLACTONE 100 MG TAB PO SCH (08:58)
[2022-03-05] MEDS: THIAMINE HCL 100 MG TAB PO SCH (08:58)
[2022-03-05] MEDS: COLESTIPOL HCL 1 GM TAB PO SCH ×2 (09:00→22:42)
[2022-03-05] MEDS ORDERED: MAGNESIUM SULFATE / D5W 1 GM/100 ML BAG IV ONE (09:30)
--- NOTE | 2022-03-05 10:00 | Hospitalist Progress Note ---
Date of Service March 05, 2022 Assessment & Plan (1) Abdominal pain: Plan: Abdominal ascites Secondary to decompensated alcoholic cirrhosis Ruled out SBP H/O end-stage liver disease, esophageal varices, portal hypertension, gastric varices S/p embolization MELD 18 S/P abdominal paracentesis on 03/03/22 No signs of SBP Got IV albumin Appreciate GI input Continue rifaximin, lactulose Counseled again quit alcohol use. She stated she will quit this time She stated her abd is back to how it was on admission and want more paracentesis USS paracentesis ordered Tighten fluid restriction to 1.5L/day Continue lasix and aldactone Suspected GI bleed ? Bilious Vomiting Acute on Chronic Anemia H/O Esophageal varices, gastric varices S/p embolization S/P 1 unit PRBC Continue p.o. Protonix 40 mg twice daily Hb stable so far Monitor H&H Abnormal urinalysis Urine culture multiple carla Denied urinary symptoms Stop empirical ceftriaxone Hypomagnesemia Give IV mag 1g Continue po mag daily Monitor electrolytes Ongoing alcohol abuse Medication noncompliance On presentation Alcohol level:96.8 On AWSS protocol Continue thiamine, folic acid Chronic Hyponatremia Likely multifactorial Monitor Sodium 136 today Chronic pancytopenia Secondary to alcoholism Chronic pain H/O Narcotic abuse Avoid Narcotics as able Changed oxycodone to once prn for severe pain only PDMP reviewed Hypothyroidism Normal TSH Currently not on meds DVT Px: SCDs RE thrombocytopenia Code Status Full code Admission and Anticipated Discharge Date Admission Date: March 02, 2022 Subjective Patient seen and examined Reports increasing abd distention Stated she starts having abd discomfort when she tries to sit up Denied any nausea, vomiting, constipation Denied cough, chest pain, shortness of breath Denied fever, chills Denied dysuria, freq, urgency Physical Exam Constitutional: + well hydrated; no acute distress Eyes: PERRL and EOM intact bilaterally ENMT: external ear and nose normal, oropharynx normal Respiratory: normal respiratory effort, lungs clear to auscultation Cardiovascular: Rate/Rhythm: regular rate and regular rhythm S1 S2 Gastrointestinal (Abdomen): Abd is distended, soft, non tender, +Bowel sounds Musculoskeletal: no cyanosis or clubbing, extremities motor strength 5/5 Neurologic: PERRL, EOMI, accommodation nl, no face palsy, no dysarthria Psychiatric: A+Ox3, euthymic affect Results & Data Results & Data ([facility]) Vital Signs (Past 12 Hours) Vital Signs Temp Pulse Resp BP Pulse Ox O2 Del Method 03/05/22 07:42 37.0 C 61 16 102/63 99 Room Air 03/05/22 02:37 37.2 C 83 18 104/67 91 Room Air 03/05/22 00:26 Room Air 03/04/22 22:56 37.0 C 76 18 100/62 91 Room Air Laboratory Results Abnormal lab results 03/05/22 03/05/22 Range/Units 08:04 08:04 WBC 1.37 L (4.8-10.8) K/ul RBC 3.15 L (3.93-5.22) M/uL Hgb 8.5 L (12.0-16.0) g/dl Hct 26.8 L (34.1-44.9) % MCHC 31.7 L (32.0-36.0) g/dL RDW Std Deviation 82.8 H (36.4-46.3) fL RDW Coeff of Chetan 26.6 H (11.5-14.5) % Plt Count 67 L (130-400) K/uL BUN 5 L (6-23) mg/dl Creatinine 0.43 L (0.6-1.2) mg/dl Glucose 109 H (70-99(Fasting)) mg/dl Calcium 7.9 L (8.5-10.1) mg/dl Magnesium 1.4 L (1.7-2.4) mg/dl
--- NOTE | 2022-03-05 10:59 | Communication Note ---
Date of Service: March 05, 2022 Goals of care clarified. Code status per Siena's wishes. Plan for discharge to home when ready. Will sign off. Please call if needed.
[2022-03-05] MEDS: PROMETHAZINE HCL 6.25 MG in SODIUM CHLORIDE 0.9% 50 ML IV PRN (12:20)
[2022-03-05] MEDS: oxyCODONE HCL IR 5 MG TAB (IMMEDIATE RELEASE) PO PRN ×2 (13:19→18:10)
--- NOTE | 2022-03-05 14:17 | Ultrasound Report ---
PROCEDURE: Ultrasound-Guided Diagnostic/Therapeutic Paracentesis CLINICAL HISTORY: For paracentesis MEDICATIONS: Subcutaneous Lidocaine 2%. PROCEDURE: The procedure itself was explained to the patient carefully. The patient was brought into the IR suite and a time-out was performed. The patient was positioned supine on the table. Preliminar y ultrasound of the abdomen was performed to determine a safe needle entry site. The most appropriat e approach for safe needle entry site was planned and the site for puncture was marked. The right low er quadrant was prepped and draped in the usual sterile fashion. Subcutaneous 2% lidocaine was used f or local anesthesia along the expected needle tract. Under ultrasound-guidance, an 5 Divehi Yueh needle-sheath was inserted carefully into the peritoneal space towards the abdominal ascites fluid collection. The needle was removed and the sheath was conn ected to tubing and a vacuum suction device. A total of 4000 cc of serous ascites was aspirated. The sheath was removed and a sterile dressing applied. The patient tolerated the procedure well without i mmediate complications. IMPRESSION: Ultrasound-guided therapeutic paracentesis. Electronically signed by: Roger Flores M.D. 03/05/2022 2:16 PM
[2022-03-05] MEDS ORDERED: ALBUMIN 25% 100 mL 25 GM/100 ML VIAL IV ONE (16:28)
[2022-03-05] MEDS: rOPINIRole HCL 0.25 MG TABLET PO SCH (20:00)
[2022-03-05] MEDS: traZODone HCL 50 MG TAB PO SCH (21:35)
[2022-03-06] MEDS ORDERED: oxyCODONE HCL IR 5 MG TAB (IMMEDIATE RELEASE) PO STA (01:14)
[2022-03-06] MEDS: cefTRIAXone SODIUM 2,000 MG in DEXTROSE 5% 50 ML IV SCH (01:30)
[2022-03-06 08:28] LABS: Hematocrit (blood only) 27.8 % (34.1-44.9); Hemoglobin 8.7 g/dl (12.0-16.0); Mean Corpuscular Hemoglobin 26.6 pg (25.0-34.0); Mean Corpuscular Hgb Conc 31.3 g/dL (32.0-36.0); Mean Platelet Volume 9.5 fL (9.4-12.3); Platelet Count 61 K/uL (130-400); RDW Standard Deviation 82.7 fL (36.4-46.3); Red Blood Count 3.27 M/uL (3.93-5.22)
[2022-03-06 09:06] LABS: Bilirubin,Total 1.5 mg/dl (0.2-1.0); Calcium 8.3 mg/dl (8.5-10.1); Magnesium 1.4 mg/dl (1.7-2.4); Potassium 3.4 mmol/L (3.5-5.1)
[2022-03-06] MEDS ORDERED: MAGNESIUM SULFATE / D5W 1 GM/100 ML BAG IV ONE ×2 (09:09→14:45)
[2022-03-06 09:12] LABS: Albumin Globulin Ratio 1.9 (0.9-2); BUN Creatinine Ratio 21.6 (10-20); Creatinine Clr Calc Pharmacy 145.9 ml/min; Est GFR (African American) 137.5 ml/min; Est GFR (Non-African American) 118.6 ml/min; Globulin 2.1 gm/dl (2.5-4.0); Phosphorus 2.9 mg/dl (2.5-4.9); Total Protein 6.1 gm/dl (6.0-8.3)
[2022-03-06] MEDS: oxyCODONE HCL IR 5 MG TAB (IMMEDIATE RELEASE) PO PRN (11:06)
[2022-03-06] MEDS: CITALOPRAM 20 MG TAB PO SCH (11:07)
[2022-03-06] MEDS: THIAMINE HCL 100 MG TAB PO SCH (11:07)
[2022-03-06] MEDS: MAGNESIUM OXIDE 400 MG TAB PO SCH (11:07)
[2022-03-06] MEDS: MIDODRINE HCL 2.5 MG TAB PO SCH ×4 (11:07→17:45)
[2022-03-06] MEDS: SPIRONOLACTONE 100 MG TAB PO SCH (11:07)
[2022-03-06] MEDS: COLESTIPOL HCL 1 GM TAB PO SCH ×2 (11:07→21:01)
[2022-03-06] MEDS: FUROSEMIDE 40 MG TAB PO SCH ×2 (11:08→21:10)
[2022-03-06] MEDS: FOLIC ACID 1 MG TAB PO SCH (11:08)
[2022-03-06] MEDS: GABAPENTIN 400 MG CAP PO SCH ×4 (11:08→21:07)
[2022-03-06] MEDS: rifAXIMin 550 MG TABLET PO SCH ×2 (11:09→21:03)
[2022-03-06] MEDS: PANTOprazole 40 MG TAB PO SCH ×2 (11:09→21:02)
[2022-03-06] MEDS: LACTULOSE SYRUP 20 GM/30 ML UDC PO SCH ×3 (11:09→20:59)
[2022-03-06] MEDS: POTASSIUM CHLORIDE 20 MEQ/15 ML UDC PO SCH ×2 (11:10→20:59)
[2022-03-06] MEDS: PROMETHAZINE HCL 6.25 MG in SODIUM CHLORIDE 0.9% 50 ML IV PRN (15:34)
--- NOTE | 2022-03-06 16:11 | Hospitalist Progress Note ---
Date of Service March 06, 2022 Assessment & Plan (1) Abdominal pain: Plan: Abdominal ascites Secondary to decompensated alcoholic cirrhosis Ruled out SBP H/O end-stage liver disease, esophageal varices, portal hypertension, gastric varices S/p embolization MELD 18 S/P abdominal paracentesis on 03/03/22 with 5L removed S/P another paracentesis yesterday 03/05/22 with 4L removed No signs of SBP Got IV albumin GI input appreciated Continue rifaximin, lactulose Counseled again quit alcohol use. She stated she will quit this time Continue fluid restriction to 1.5L/day Continue lasix and aldactone Suspected GI bleed ? Bilious Vomiting Acute on Chronic Anemia H/O Esophageal varices, gastric varices S/p embolization S/P 1 unit PRBC Continue p.o. PPI Hb stable so far Monitor H&H Hypomagnesemia Give IV mag 1g Continue po mag daily on discharge Ongoing alcohol abuse Medication noncompliance Counseled on need for alcohol cessation Continue thiamine, folic acid Chronic Hyponatremia Likely multifactorial Improved Sodium 137 today Chronic pancytopenia Secondary to alcoholism Chronic pain H/O Narcotic abuse PDMP reviewed Not on chronic opioids. Patient asking for oxycodone on discharge I explained to patient that based on my exam and clinical findings there is no need for opioids at this time She stated she feels pain but could not tell me where the pain was Hypothyroidism Normal TSH Currently not on meds She asked for refills of most of her meds to be sent to her pharm as she has run out. This was done Admission and Anticipated Discharge Date Admission Date: March 02, 2022 Subjective Patient seen and examined Has no new complaints Asking about getting more oxycodone When asked where she has pain, she could not localized and stated she has pain all over Had some nausea earlier Abd distention is resolved after 2nd paracentesis with removal of 4L yesterday Denied cough, chest pain, shortness of breath Denied fever, chills Denied dysuria, freq, urgency Physical Exam Constitutional: + well hydrated; no acute distress Eyes: PERRL and EOM intact bilaterally ENMT: external ear and nose normal, oropharynx normal Respiratory: normal respiratory effort, lungs clear to auscultation Cardiovascular: Rate/Rhythm: regular rate and regular rhythm Gastrointestinal (Abdomen): Soft, nontender, not distended, normal bowel sounds Musculoskeletal: no cyanosis or clubbing, extremities motor strength 5/5 Neurologic: PERRL, EOMI, accommodation nl, no face palsy, no dysarthria Psychiatric: A+Ox3, euthymic affect Results & Data Results & Data ([facility]) Vital Signs (Past 12 Hours) Vital Signs Temp Pulse Pulse Pulse Resp BP BP 03/06/22 15:58 37.3 C 88 104/65 03/06/22 06:00 79 03/06/22 10:50 36.5 C 87 105 H 20 99/64 L 141/91 H 03/06/22 08:02 36.5 C 105 H 20 141/91 H Pulse Ox O2 Del Method 03/06/22 15:58 94 Room Air 03/06/22 06:00 03/06/22 10:50 97 03/06/22 08:02 97 Room Air
[2022-03-06] MEDS: rOPINIRole HCL 0.25 MG TABLET PO SCH (21:02)
[2022-03-06] MEDS: traZODone HCL 50 MG TAB PO SCH (21:22)
[2022-03-06] MEDS: ONDANSETRON INJ 2 MG/ML 2 ML VIAL IV PRN (21:30)
[2022-03-07] MEDS: GABAPENTIN 400 MG CAP PO SCH ×3 (08:59→18:26)
[2022-03-07] MEDS: PANTOprazole 40 MG TAB PO SCH (08:59)
[2022-03-07] MEDS: THIAMINE HCL 100 MG TAB PO SCH (08:59)
[2022-03-07] MEDS: MIDODRINE HCL 2.5 MG TAB PO SCH ×3 (08:59→18:25)
[2022-03-07] MEDS: FOLIC ACID 1 MG TAB PO SCH (08:59)
[2022-03-07] MEDS: DICLOFENAC SOD 1% GEL 100 GM TUBE EXT PRN (09:00)
[2022-03-07] MEDS: MAGNESIUM OXIDE 400 MG TAB PO SCH (09:00)
[2022-03-07] MEDS: FUROSEMIDE 40 MG TAB PO SCH (09:00)
[2022-03-07] MEDS: COLESTIPOL HCL 1 GM TAB PO SCH (09:00)
[2022-03-07] MEDS: SPIRONOLACTONE 100 MG TAB PO SCH (09:00)
[2022-03-07] MEDS: CITALOPRAM 20 MG TAB PO SCH (09:00)
[2022-03-07] MEDS: LACTULOSE SYRUP 20 GM/30 ML UDC PO SCH ×2 (09:01→14:11)
[2022-03-07] MEDS: rifAXIMin 550 MG TABLET PO SCH (09:01)
[2022-03-07] MEDS: ONDANSETRON INJ 2 MG/ML 2 ML VIAL IV PRN (09:11)
[2022-03-07] MEDS: PROMETHAZINE HCL 6.25 MG in SODIUM CHLORIDE 0.9% 50 ML IV PRN (11:41)
[2022-03-07] MEDS: oxyCODONE HCL IR 5 MG TAB (IMMEDIATE RELEASE) PO PRN (11:44)
[2022-03-07] MEDS: POTASSIUM CHLORIDE 20 MEQ/15 ML UDC PO SCH (11:46)
--- NOTE | 2022-03-07 12:00 | Hospitalist Progress Note ---
Date of Service March 07, 2022 Assessment & Plan (1) Abdominal pain: Plan: Abdominal ascites Secondary to decompensated alcoholic cirrhosis Ruled out SBP H/O end-stage liver disease, esophageal varices, portal hypertension, gastric varices S/p embolization MELD 18 S/P abdominal paracentesis on 03/03/22 with 5L removed S/P another paracentesis yesterday 03/05/22 with 4L removed No signs of SBP Got IV albumin GI input appreciated Continue rifaximin, lactulose Counseled again quit alcohol use. She stated she will quit this time Continue fluid restriction to 1.5L/day Continue lasix and aldactone Suspected GI bleed ? Bilious Vomiting Acute on Chronic Anemia H/O Esophageal varices, gastric varices S/p embolization S/P 1 unit PRBC Continue p.o. PPI Hb stable so far Monitor H&H Hypomagnesemia Continue po mag daily on discharge Ongoing alcohol abuse Medication noncompliance Counseled on need for alcohol cessation Continue thiamine, folic acid Chronic Hyponatremia Likely multifactorial Improved Chronic pancytopenia Secondary to alcoholism Chronic pain H/O Narcotic abuse PDMP reviewed Not on chronic opioids. 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 Patient has no symptoms. Advised to get home COVID test in 5 days from time of exposure or earlier if develops symptoms. Continue airborne precautions while inpt Admission and Anticipated Discharge Date Admission Date: March 02, 2022 Subjective Patient seen and examined Has no new complaints Reports occasional abd pain and intermittent nausea which is chronic Denied cough, chest pain, shortness of breath Denied fever, chills Denied dysuria, freq, urgency Physical Exam Constitutional: + well hydrated; no acute distress Eyes: PERRL and EOM intact bilaterally ENMT: external ear and nose normal, oropharynx normal Respiratory: normal respiratory effort, lungs clear to auscultation Cardiovascular: Rate/Rhythm: regular rate and regular rhythm S1 S2 Gastrointestinal (Abdomen): Soft, nontender, normal bowel sounds Musculoskeletal: no cyanosis or clubbing, extremities motor strength 5/5 Neurologic: PERRL, EOMI, accommodation nl, no face palsy, no dysarthria Psychiatric: A+Ox3, euthymic affect Results & Data Results & Data ([facility]) Vital Signs (Past 12 Hours) Vital Signs Temp Pulse Pulse BP Pulse Ox O2 Del Method 03/07/22 11:33 36.7 C 69 112/60 93 Room Air 03/07/22 01:09 78
--- NOTE | 2022-03-07 12:53 | XRay Report ---
KUB HISTORY: Acute generalized abdominal pain with nausea Nausea, assess bowels COMPARISON: CT abdomen and pelvis 03/01/2022 FINDINGS: Moderate bowel gas pattern. Surgical clips of the upper abdomen. Pain pump device projects over the right midabdomen. Unchanged phleboliths of the right abdomen the level of L4-L5 and also wit hin the pelvis. No renal calculi. No ureteral calculi. No pneumoperitoneum or pneumatosis. ORIF saucedo es of the proximal left femur. No fracture. IMPRESSION: Nonobstructive bowel gas pattern. ACT 112: Negative or not required by law. The above report was generated using voice recognition software. It may contain grammatical, syntax o r spelling errors. Electronically signed by: Fredy Matos M.D. 03/07/2022 12:51 PM
--- NOTE | 2022-03-07 16:44 | Discharge Summary ---
Discharge Summary Date of Service March 07, 2022 Notes For Next Care Provider Continue to encourage alcohol cessation Continue management of chronic medical problems Needs to follow up with a Animal Tech Medication Changes From Visit Home meds were continued Admission HPI Per Admitting Provider History obtained from patient and records. Medical history significant for alcoholic cirrhosis, ongoing alcohol abuse, history of esophageal/gastric varices, portal hypertension, chronic pancytopenia as per records (baseline hemoglobin 9-10), chronic pain as per records, history seizures as per records, history thoracic/lumbar compression fracture, hypothyroidism, past tobacco abuse. Recent confinement [facility] May 2021 for decompensated cirrhosis and UGIB. Patient transferred from [facility]. EGD showed a scar in the lower third of esophagus from prior banding. Gastric bypass with intact staple line. GJ anastomosis characterized by healthy mucosa. Stomach endoclips noted. No evidence of active or recent GI bleed as per documentation. Colonoscopy was normal. SBP ruled out by IR guided paracentesis. Patient completed Cipro prophylaxis course. Patient refused PT, rehab placement as per discharge note. Shortly after discharge, patient received a call from [facility] palliative medicine to discuss possible hospice. Patient resumed EtOH intake upon return home. Has not been able to follow-up with PCP. Ran out of of home medications a few months ago. Patient noted increasing abdominal distention the last few weeks. Today, patient had sudden onset hematemesis and hematochezia, not diarrhea as per patient. Worsening abdominal pain, no fever, no chills. Patient denies unusual chest pain, SOB, headache. Patient brought to ER for worsening symptoms. IV Protonix administered at the ER. 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 Admission Exam Per Admitting Provider GENERAL: Slightly uncomfortable, pleasant, no respiratory distress SKIN: Pallor, warm HEENT: Pale palpebral conjunctivae, no ptosis, dry buccal mucosa NECK : Supple, no tenderness CHEST : Decreased breath sounds, no tenderness HEART : RRR, no obvious murmurs ABDOMEN: Marked distention, central abdominal tenderness, positive fluid wave EXTREMITIES : Minimal LE swelling, no LE tenderness, no other conspicuous deformities noted NEUROLOGIC : Coherent, no facial asymmetry, gait and stance not assessed Principal Dx & Hospital Course #1 = Principal Diagnosis (1) Abdominal pain: Abdominal ascites Secondary to decompensated alcoholic cirrhosis Ruled out SBP H/O end-stage liver disease, esophageal varices, portal hypertension, gastric varices S/p embolization S/P abdominal paracentesis on 03/03/22 with 5L removed S/P another paracentesis yesterday 03/05/22 with 4L removed No signs of SBP Got IV albumin GI input appreciated Continue rifaximin, lactulose Counseled about quitting alcohol use. She stated she will quit this time Continue fluid restriction to 1.5L/day Continue lasix and aldactone Suspected GI bleed ? Bilious Vomiting Acute on Chronic Anemia H/O Esophageal varices, gastric varices S/p embolization S/P 1 unit PRBC Continue p.o. PPI Hb stable so far Hypomagnesemia Continue po mag daily on discharge Ongoing alcohol abuse Medication noncompliance Counseled on need for alcohol cessation Continue thiamine, folic acid Chronic Hyponatremia Likely multifactorial Improved Chronic pancytopenia Secondary to alcoholism Chronic pain H/O Narcotic abuse PDMP reviewed Not on chronic opioids. Hypothyroidism Normal TSH Currently not on meds Patient is currently stable for discharge I called and updated son who was concerned about her continuing to drink. We dis cussed resources Son and patient can follow up with [facility] coordination CM had arranged to follow up with her Patient's room mate from 2 nights ago tested positive to COVID. Patient has no symptoms. Advised to get home COVID test in 5 days from time of exposure or earlier if develops symptoms. Continue airborne precautions while inpt Discharge Exam Constitutional + well hydrated; no acute distress Eyes PERRL and EOM intact bilaterally ENMT external ear and nose normal, oropharynx normal Respiratory normal respiratory effort, lungs clear to auscultation Cardiovascular Rate/Rhythm: regular rate and regular rhythm S1 S2 Gastrointestinal (Abdomen) Soft, nondistended, nontender, normal bowel sounds Musculoskeletal no cyanosis or clubbing, extremities motor strength 5/5 Neurologic PERRL, EOMI, accommodation nl, no face palsy, no dysarthria Psychiatric A+Ox3, euthymic affect Updated Medication List Medication Instructions Recorded Confirmed Type diclofenac sodium 1 % topical gel 1 ea topical BID PRN Pain 03/02/22 03/02/22 History gabapentin 100 mg capsule 100 mg PO HS 03/02/22 03/02/22 History citalopram 20 mg tablet 20 mg PO QAM #30 tabs 03/06/22 Rx colestipol 1 gram tablet 2 g PO BID 30 days #120 tabs 03/06/22 Rx folic acid 1 mg tablet 1 mg PO QAM #30 tabs 03/06/22 Rx furosemide 40 mg tablet 40 mg PO BID #60 tabs 03/06/22 Rx gabapentin 400 mg capsule 400 mg PO QID #120 caps 03/06/22 Rx gabapentin 600 mg tablet 600 mg PO HS #30 tabs 03/06/22 Rx hydroxyzine HCl 25 mg tablet 25 mg PO BID PRN Anxiety #30 tabs 03/06/22 Rx lactulose 10 gram/15 mL oral 30 ml PO TID #946 mL 03/06/22 Rx solution lidocaine 5 % topical patch 1 patch transdermal QAM PRN Pain 03/06/22 03/02/22 Rx #15 ea [id number] 1 cap PO QID #120 caps 03/06/22 Rx 36,000-114,000-180,000 unit capsule,delay rel (Creon) magnesium oxide 400 mg (241.3 mg 400 mg PO QAM #30 tabs 03/06/22 Rx magnesium) tablet midodrine 5 mg tablet 5 mg PO TID #90 tabs 03/06/22 Rx omeprazole 40 mg capsule,delayed 40 mg PO DAILY #30 caps 03/06/22 Rx release potassium chloride 10 mEq 10 meq PO DAILY #30 tabs 03/06/22 Rx tablet,extended release(part/cryst) rifaximin 550 mg tablet (Xifaxan) 550 mg PO BID #60 tabs 03/06/22 Rx ropinirole 0.25 mg tablet 0.25 mg PO HS #30 tabs 03/06/22 Rx spironolactone 100 mg tablet 100 mg PO DAILY #30 tabs 03/06/22 Rx thiamine HCl (vitamin B1) 100 mg 100 mg PO QAM #30 tabs 03/06/22 Rx tablet trazodone 50 mg tablet 50 mg PO QPM #30 tabs 03/06/22 Rx ondansetron 4 mg disintegrating 4 mg PO BID PRN nausea and 03/07/22 Rx tablet vomiting #14 tabs Hospital Stay Data Consultations 03/02/22 00:34 ED Decision to Admit Stat 03/02/22 02:28 Consult Palliative Care Routine 03/02/22 04:45 Consult Gastroenterology Routine 03/02/22 06:00 Consult Gastroenterology Routine Diagnostic Imagining Performed 03/01/22 21:39 CT Abd and Pelvis [CT abd pelvis IV con only] Stat 03/02/22 08:00 US paracentesis abd w/image Routine 03/05/22 09:45 US paracentesis abd w/image Urgent Pending Results Patient Have Any Pending Studies at Discharge: No Discharge Instructions Given to Patient (Per Discharging Provider) Mrs Showers You came to the hospital complaining of abdominal apin You were evaluated and noted to have ascites from your cirrhosis. You had 2 paracentesis with removal of a total of 9L of fluid Please quit drinking alcohol. Please adhere to fluid restriction, diuretic use and ensure follow up with your Primary Doctor and Animal Tech. Please take your omeprazole daily Please observe home isolation per COVID protocol as you were exposed while in the hospital. You can do COVID test in 5 days at home or with your pharmacy or Primary Doctor or if you develop any symptoms as we discussed It was a pleasure taking care of you. Total Time Total Time Spent Total Time Spent (In Minutes): 60 Total Time Includes: Examination of the Patient, Discharge Planning, Medication Reconciliation and Other
== END 2022-03-07 20:05 | disposition home or self-care (01) | DRG 433 ==
LOC: ED 21:08 → SUATTDRO 03-02 02:23 → EDINP 03-02 02:23 → 2N 03-02 12:34

== ENCOUNTER 2022-04-07 08:47 | Inpatient (IN) ==
[2022-04-07] MEDS ORDERED: FAMOTIDINE 20MG IV PUSH 20 MG/5 ML SYR IV STA (08:53)
[2022-04-07] MEDS ORDERED: ONDANSETRON INJ 2 MG/ML 2 ML VIAL IV STA (08:53)
[2022-04-07] MEDS ORDERED: STAT IV STA ×2 (08:57→16:26)
[2022-04-07] MEDS ORDERED: OCTREOTIDE ACETATE 100 MCG in SYRINGE 9 ML IV STA (08:57)
[2022-04-07] MEDS ORDERED: cefTRIAXone SODIUM 1,000 MG in DEXTROSE 5% AD-VAN 50 ML IV STA (08:57)
[2022-04-07] MEDS ORDERED: MoRPHine SULFATE 4 MG/ML 1 ML CARP\\VIAL IV STA (08:58)
--- NOTE | 2022-04-07 08:59 | Emergency Department Note ---
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 by: Herbie Reese M.D. 04/07/2022 2:15 PM Discharge Plan Visit Data Chief Complaint: Illness Stated Complaint: HEMATEMESIS, ED Provider: Mj Redd Discharge Problem: GIB (gastrointestinal bleeding) Discharge Instructions Interventions: ED Discharge Assessment Last Done: 04/07/22 16:13 Forms Stand Alone Forms: [facility] Prescriptions Prescriptions: No Action gabapentin 100 mg capsule 100 mg PO HS Rx Instructions: take along with 600mg = 700mg diclofenac sodium 1 % gel 1 ea TOPICAL BID PRN (Reason: Pain) potassium chloride 10 mEq tablet,ER particles/crystals 10 meq PO DAILY Qty: 30 0RF magnesium oxide 400 mg (241.3 mg magnesium) Tablet 400 mg PO QAM Qty: 30 0RF thiamine HCl (vitamin B1) 100 mg Tablet 100 mg PO QAM Qty: 30 0RF folic acid 1 mg Tablet 1 mg PO QAM Qty: 30 0RF furosemide 40 mg tablet 40 mg PO BID Qty: 60 0RF gabapentin 600 mg tablet 600 mg PO HS Qty: 30 0RF Rx Instructions: take along with 100mg trazodone 50 mg tablet 50 mg PO QPM Qty: 30 0RF spironolactone 100 mg tablet 100 mg PO DAILY Qty: 30 0RF midodrine 5 mg tablet 5 mg PO TID Qty: 90 0RF Rx Instructions: do not give last dose of day after 6PM or within 4 hrs of bedtime citalopram 20 mg tablet 20 mg PO QAM Qty: 30 0RF ropinirole 0.25 mg tablet 0.25 mg PO HS Qty: 30 0RF lidocaine 5 % adhesive patch,medicated 1 patch transdermal QAM PRN (Reason: Pain) Qty: 15 0RF hydroxyzine HCl 25 mg tablet 25 mg PO BID PRN (Reason: Anxiety) Qty: 30 0RF colestipol 1 gram Tablet 2 g PO BID 30 Days Qty: 120 0RF lactulose 10 gram/15 mL solution 30 ml PO TID Qty: 946 0RF Rx Instructions: To ensure 3 Bowel movement per day. Can hold off further doses once 3 bowel movement is achieved Xifaxan 550 mg tablet 550 mg PO BID Qty: 60 0RF Creon 36,000-114,000- 180,000 unit Capsule,Delayed Release(Dr/Ec) 1 cap PO QID Qty: 120 0RF omeprazole 40 mg capsule,delayed release(DR/EC) 40 mg PO DAILY Qty: 30 0RF ondansetron 4 mg tablet,disintegrating 4 mg PO BID PRN (Reason: nausea and vomiting) Qty: 14 0RF Referrals Referrals: Filiberto Moya [Primary Care Provider] - GIB (gastrointestinal bleeding) Qualifiers: GI bleed type/associated pathology: unspecified gastrointestinal hemorrhage type Qualified Code(s): K92.2 - Gastrointestinal hemorrhage, unspecified
[2022-04-07] MEDS ORDERED: SODIUM CHLORIDE 0.9% 1000ML 1,000 ML IV SCH (09:00)
[2022-04-07] MEDS ORDERED: PANTOprazole 40 MG in DEXTROSE 5% 100 ML IV SCH (09:00)
--- NOTE | 2022-04-07 09:56 | XRay Report ---
XR chest 1V portable CLINICAL HISTORY: Hematemesis. COMPARISON STUDY: Chest CT February 06, 2021 and chest radiograph March 02, 2022. FINDINGS: Suspected skin folds project over the bilateral hemithoraces. Elevation of the right hemidi aphragm is unchanged. There is no consolidation to suggest pneumonia. Cardiomediastinal silhouette is normal. No evidence for pulmonary edema. Old right-sided rib fractures are noted. Lucency projecting over the right quadrant probably reflects gas within bowel. IMPRESSION: 1. Suspected skin folds projecting over the bilateral hemithoraces. A right pneumothorax is considere d less likely but would be difficult to exclude and radiographic follow-up is recommended. 2. No change in elevation of the right hemidiaphragm. 3. Lucency projecting over the right upper quadrant. This likely reflects gas within bowel. ACT 112: Negative or not required by law. Electronically signed by: Benedict Vaughn M.D. 04/07/2022 9:54 AM
[2022-04-07 10:09] LABS: Albumin Level 3.6 gm/dl (3.4-5.0); BUN Creatinine Ratio 21.7 (10-20); Bilirubin,Total 2.9 mg/dl (0.2-1.0); Creatinine Clr Calc Pharmacy 105.4 ml/min; Est GFR (African American) 127.1 ml/min; Est GFR (Non-African American) 109.7 ml/min; Globulin 3.5 gm/dl (2.5-4.0); Potassium 2.9 mmol/L (3.5-5.1); Total Protein 7.1 gm/dl (6.0-8.3)
[2022-04-07 10:15] LABS: Troponin I High Sensitivity 4.7 pg/ml (0-14)
[2022-04-07 10:22] LABS: INR 1.2 (0.9-1.1); Partial Thromboplastin Ratio 0.9; Partial Thromboplastin Time 25.5 Seconds (21.0-31.0)
--- NOTE | 2022-04-07 10:23 | Electrocardiogram Report ---
Test Reason : Blood Pressure : / mmHG Vent. Rate : 070 BPM Atrial Rate : 070 BPM P-R Int : 158 ms QRS Dur : 096 ms QT Int : 420 ms P-R-T Axes : 022 -23 022 degrees QTc Int : 453 ms Normal sinus rhythm Low voltage QRS Poor R wave progression, consider anterior IL vs. lead placement vs. LVH Abnormal ECG When compared with ECG of 01-MAR-2022 21:20, Questionable change in initial forces of Anterolateral leads Confirmed by Jose Alberto Blakely ([id number]) on 04/07/2022 10:23:35 AM Referred By: Confirmed By:Sunil Blakely
[2022-04-07 10:25] LABS: Hematocrit (blood only) 29.2 % (37.0-47.0); Hemoglobin 9.2 g/dl (12.0-16.0); Mean Corpuscular Hemoglobin 24.4 pg (25.0-34.0); Mean Corpuscular Hgb Conc 31.5 g/dL (32.0-36.0); Mean Corpuscular Volume 77.5 fL (80.0-100.0); Mean Platelet Volume 10.5 fL (9.4-12.4); Platelet Count 137 K/uL (130-400); RDW Coefficient of Variation 22.9 % (11.5-14.5); RDW Standard Deviation 63.7 fL (36.4-46.3); Red Blood Count 3.77 M/uL (4.20-5.40); White Blood Count 3.14 K/ul (4.8-10.8)
[2022-04-07 10:26] LABS: Anisocytosis Present; Basophils # (auto) 0.03 K/uL (0-0.2); Eosinophils # (auto) 0.04 K/uL (0-0.50); Eosinophils % (auto) 1.3 %; Immature Granulocytes # (auto) 0.01 K/uL (0.01-0.20); Immature Granulocytes % (auto) 0.3 %; Lymphocytes # (auto) 0.38 K/uL (1.2-3.4); Lymphocytes % (auto) 12.1 %; Monocytes # (auto) 0.39 K/uL (0.11-0.59); Monocytes % (auto) 12.4 %; Neutrophils # (auto) 2.29 K/uL (1.40-6.50); Neutrophils % (auto) 72.9 %; Poikilocytosis Present; Polychromasia 1+
[2022-04-07] MEDS ORDERED: OPTIRAY 350 100ml IV ONE (11:38)
--- NOTE | 2022-04-07 12:40 | CT Scan Report ---
ABDOMEN AND PELVIS CT WITH IV CONTRAST CT DOSE: 316.48 mGy.cm HISTORY: upper and lower GI bleed TECHNIQUE: Multiaxial CT images of the abdomen and pelvis were performed following the use of intrave nous contrast. A dose lowering technique was utilized adhering to the principles of ALARA. COMPARISON STUDY: Abdomen and pelvis CT 03/01/2022. FINDINGS: There are low lung volumes with bibasilar linear densities consistent with subsegmental ate lectasis. No pneumoperitoneum. No pneumatosis. There is a left dynamic hip screw again noted. Advance d degenerative changes within the left hip. Old, healed sacral fracture. Multiple old compression def ormities again noted within the thoracic and lumbar spine. This includes a subacute to chronic mild s uperior endplate compression deformity at L2. No acute fractures identified. Old, healed bilateral ri b fractures. Right lower quadrant subcutaneous pain pump with the catheter extending to the right low er lumbar subcutaneous soft tissues. The catheter is looped at this location. This catheter does not extend into the spinal canal. This remains unchanged. Nodular contour to the liver consistent with ci rrhosis. Prior cholecystectomy. The main portal vein is patent. The spleen is enlarged measuring 14 c m in length. The adrenal glands, pancreas, and kidneys unremarkable. Normal caliber abdominal aorta. No retroperitoneal lymphadenopathy. Large volume ascites persists. Recanalization of the umbilical ve in again noted. Diffusely thickened large and small bowel which has progressed in the interval. This most pronounced at the gastrojejunostomy site. However, no dilated loops of bowel to suggest an obstr uction. IMPRESSION: 1. Diffusely thickened large and small bowel most pronounced at the gastrojejunostomy site. This has progressed in the interval. This could be due to the patient's diffuse edematous state or a nonspecif ic enterocolitis. 2. No evidence for bowel obstruction. 3. Cirrhosis with splenomegaly. 4. Large volume ascites persists. 5. Additional findings as described above. ACT 112: Negative or not required by law. Electronically signed by: Brennen King M.D. 04/07/2022 12:38 PM
--- NOTE | 2022-04-07 14:16 | CT Scan Report ---
CT SCAN OF THE CHEST WITHOUT IV CONTRAST CLINICAL HISTORY: Abnormal chest x-ray. Concern for pneumothorax. COMPARISON STUDY: Chest CT dated 02/06/2021. Chest x-ray dated 04/07/2022. TECHNIQUE: CT scan of the thorax was performed from the thoracic inlet to the upper abdomen. Images are reviewed in the axial, sagittal, and coronal planes. IV contrast was not administered for this ex amination as per the referring clinician. A dose lowering technique was utilized adhering to the german Zuñiga. CT DOSE: 153.00 mGy.cm FINDINGS: Thyroid: Imaged portions of the thyroid gland are normal in size and attenuation. Thoracic aorta: There is moderate atherosclerotic calcification of the thoracic aorta, which is josh l in caliber and demonstrates standard 3-vessel arch anatomy. Heart: The heart is top normal in size noting trace pericardial effusion. Lungs and pleural spaces: There is no pneumothorax. There is chronic elevation of the right hemidiaph ragm with bibasilar scarring/atelectasis. There are scattered calcified granulomas. No airspace conso lidation typical for pneumonia or pleural effusion is identified. 2 to 3 mm right lower lobe pulmonar y nodules seen on images #91 and #97 are unchanged from previous. The trachea and central airways are clear. Mediastinum: There is no mediastinal lymphadenopathy. Melody: Not well assessed without IV contrast. Axillae: There is no axillary lymphadenopathy. Upper abdomen: The liver is cirrhotic in morphology and heterogeneous attenuation. There is hypertrop hy of the left lobe and nodularity of the hepatic surface contour. A moderate to large volume of abdo jeronimo ascites is seen in the upper abdomen. The spleen is enlarged. Postsurgical change is noted in t he stomach. The gastric pouch is distended. No extraluminal gas is seen. Skeletal structures: The skeletal structures are osteopenic. There are chronic/healed bilateral rib f ractures. Numerous chronic compression deformities are noted in the thoracic spine. No lytic or blast ic bony lesions are seen. IMPRESSION: 1. No pneumothorax is identified. The abnormality questioned by x-ray likely corresponds to skin fold s. 2. There is no airspace consolidation typical for pneumonia or pleural effusion. 3. Cirrhotic liver morphology, splenomegaly, and ascites is noted in the upper abdomen. 4. Additional findings as above. ACT 112: Negative or not required by law. Electronically signed by: Herbie Reese M.D. 04/07/2022 2:15 PM
--- NOTE | 2022-04-07 14:42 | History & Physical Report ---
Date of Service April 07, 2022 Assessment & Plan (1) GIB (gastrointestinal bleeding): Plan: Patient is 57 y/o F with PMH alcohol abuse, end-stage liver disease, esophageal varices, portal hypertension, hypothyroidism, peripheral neuropathy, history of convulsions, depression, anxiety, RLS, history of narcotic abusepresented to ER with complaint of diffuse abdominal cramping and melena x 5 days. States today vomited red blood x1 Possible colitis In ER vitals stable. H&H: 9.2/29. Hgb was 8.7 on 03/06/2022. PLT: 137, INR 1.2. Labs around baseline CT ABD/PELVIS: 1. Diffusely thickened large and small bowel most pronounced at the gastrojejunostomy site. This has progressed in the interval. This could be due to the patient's diffuse edematous state or a nonspecific enterocolitis. 2. No evidence for bowel obstruction. 3. Cirrhosis with splenomegaly. 4. Large volume ascites persists. 5. Additional findings as described above. Stool culture, C. difficile pending Blood cultures pending In ER was given Rocephin, octreotide drip, PPI drip We will continue Rocephin for now No episodes hematemesis or melena during ER course, monitor Continue PPI drip Continue octreotide N.p.o. GI consult. Spoke with Meredith HUITRON, recommends continuing PPI drip, octreotide, Rocephin. Possible plan for EGD CBC, CMP in a.m. (2) Cirrhosis: (3) Esophageal varices: (4) Portal hypertensive gastropathy: (5) Pancytopenia: Plan: H/O end-stage liver disease, esophageal varices, portal hypertension, gastric varices s/p embolization Continue rifaximin, lactulose N.p.o. at this time however patient when able to resume diet consider fluid restrictions Continue lasix and spironolactone tomorrow GI consult as above (6) Abdominal ascites: Plan: Recent [facility] hospitalization 03/02/2022-03/07/2022 and had abdominal paracentesis x 2 with removal of 4 L Abdominal ascites Secondary to decompensated alcoholic cirrhosis R/O SBP Diagnostic/therapeutic paracentesis Will plan to give albumin after paracentesis (7) Acute hypokalemia: Plan: Acute on chronic hypokalemia K: 2.9. Magnesium level pending In ER received 2K riders Replace and monitor. Repeat BMP tonight BMP in a.m. (8) Chronic pain: Plan: Chronic pain H/O Narcotic abuse Not on chronic opioids currently (9) Alcohol abuse: Plan: History alcohol abuse Reports no ETOH intake in past month Counseled on need for continued alcohol cessation Continue thiamine, folic acid (10) Abnormal CXR: Plan: CXR: Suspected skin folds projecting over the bilateral hemithoraces. A right pneumothorax is considered less likely but would be difficult to exclude and radiographic follow-up is recommended. No change in elevation of the right hemidiaphragm. CT chest: No pneumothorax is identified. The abnormality questioned by x-ray likely corresponds to skin folds. There is no airspace consolidation typical for pneumonia or pleural effusion. CT chest r/o pneumonthorax, likely skin folds seen on CXR DVT Prophylaxis SCDs DNR/DNI as per discussion with pt Follows with Dr Moya for routine care Pt was seen and care coordinated with Dr Simon. See addendum I spent a total of 76 minutes reviewing notes, outpatient records, labs, medication, coordinating, documenting and providing care for this patient excluding time spent in the performance of separately billed services. History of Present Illness Chief Complaint: Vomiting blood Primary Care Provider: Filiberto Moya Patient is 57 y/o F with PMH alcohol abuse, end-stage liver disease, esophageal varices, portal hypertension, hypothyroidism, peripheral neuropathy, history of convulsions, depression, anxiety, RLS, history of narcotic abusepresented to ER with complaint of diffuse abdominal cramping and melena x 5 days. States today vomited red blood once. She also notices increased abdominal girth. Recent [facility] hospitalization 03/02/2022-03/07/2022 for hematemesis, hematochezia, increased abdominal distention. During hospitalization patient had 2 abdominal paracenteses with total of 9 L removed per chart review. She received 1 unit PRBCs. She reports no medication changes since discharge. Reports not had ETOH since last hospital admission. Has chronic pain and reports no changes. Denies fever/chills, diaphoresis, diarrhea, CROWELL, dizziness, syncope, vision changes, CP, SOB, cough, sore throat, rhinorrhea, paresthesias, extremity weakness, extremity edema, rashes, urinary symptoms. Allergies Allergy/AdvReac Type Severity Reaction Status Date / Time diphenhydramine Allergy Severe seizures/it Verified 04/07/22 15:13 mya/tremo rs bupropion Allergy Intermediate Palpitation Verified 04/07/22 15:13 s clarithromycin Allergy Intermediate HIVES Verified 04/07/22 15:13 aspirin Allergy Mild hives/ringing Verified 04/07/22 15:13 of ears oxaprozin Allergy Mild nausea/vomi Verified 04/07/22 15:13 ting salicylates Allergy Mild ringing in Verified 04/07/22 15:13 ears/hives Home Medications Medication Instructions Recorded Confirmed Type diclofenac sodium 1 % topical gel 1 ea topical BID PRN Pain 03/02/22 04/07/22 History gabapentin 100 mg capsule 100 mg PO HS 03/02/22 04/07/22 History citalopram 20 mg tablet 20 mg PO QAM #30 tabs 03/06/22 04/07/22 Rx colestipol 1 gram tablet 2 g PO BID 30 days #120 tabs 03/06/22 04/07/22 Rx folic acid 1 mg tablet 1 mg PO QAM #30 tabs 03/06/22 04/07/22 Rx furosemide 40 mg tablet 40 mg PO BID #60 tabs 03/06/22 04/07/22 Rx gabapentin 600 mg tablet 600 mg PO HS #30 tabs 03/06/22 04/07/22 Rx hydroxyzine HCl 25 mg tablet 25 mg PO BID PRN Anxiety #30 tabs 03/06/22 04/07/22 Rx lactulose 10 gram/15 mL oral 30 ml PO TID #946 mL 03/06/22 04/07/22 Rx solution lidocaine 5 % topical patch 1 patch transdermal QAM PRN Pain 03/06/22 04/07/22 Rx #15 ea couvhe-[id number]-[id number] 1 cap PO QID #120 caps 03/06/22 04/07/22 Rx 36,000-114,000-180,000 unit capsule,delay rel (Creon) magnesium oxide 400 mg (241.3 mg 400 mg PO QAM #30 tabs 03/06/22 04/07/22 Rx magnesium) tablet midodrine 5 mg tablet 5 mg PO TID #90 tabs 03/06/22 04/07/22 Rx omeprazole 40 mg capsule,delayed 40 mg PO DAILY #30 caps 03/06/22 04/07/22 Rx release potassium chloride 10 mEq 10 meq PO DAILY #30 tabs 03/06/22 04/07/22 Rx tablet,extended release(part/cryst) rifaximin 550 mg tablet (Xifaxan) 550 mg PO BID #60 tabs 03/06/22 04/07/22 Rx ropinirole 0.25 mg tablet 0.25 mg PO HS #30 tabs 03/06/22 04/07/22 Rx spironolactone 100 mg tablet 100 mg PO DAILY #30 tabs 03/06/22 04/07/22 Rx thiamine HCl (vitamin B1) 100 mg 100 mg PO QAM #30 tabs 03/06/22 04/07/22 Rx tablet trazodone 50 mg tablet 50 mg PO QPM #30 tabs 03/06/22 04/07/22 Rx ondansetron 4 mg disintegrating 4 mg PO BID PRN nausea and 03/07/22 04/07/22 Rx tablet vomiting #14 tabs Past Med/Surg History Medical History Alcohol abuse hx of Anxiety Anxiety Chronic pain Cirrhosis Degenerative disc disease Esophageal varices with banding Factitious disorder Fibromyalgia Hypomagnesemia Lumbago Multiple sclerosis Opiate addiction HX OF AND NO PROBLEMS NOW Opiate misuse Pancreatitis Pelvis fracture HX OF CRUSHED PELVIS - FROM ACCIDENT FALLING INTO DUMPSTER CHRONIC PAIN Presence of intrathecal pump PUMP IN PLACE AND NOT WORKING IT WAS TURNED OFF!!! containing morphine 0.189mg/day and fentanyl 2.52mcg/day miminimal rate per pt "it doesnt work I haven't been able to afford the medication for 3 years now"?? Seizures LAST ONE SEVERAL MONTHS AGO -- TAKES GABAPENTIN FOLLOW WITH DOCTOR KATHARINE ABRAHAM FROM [facility] Stenosis of surgical anastomosis site of digestive tract Surgical History History of cholecystectomy History of colonoscopy History of esophagogastroduodenoscopy (EGD) History of open reduction and internal fixation (ORIF) procedure left arm/left leg--hardware in place History of Jeffy-en-Y gastric bypass History of tooth extraction all teeth removed History of total hysterectomy with bilateral salpingo-oophorectomy (BSO) Hx of laparoscopy FOR ENDOMETRIOSIS Hx of resection of small bowel DUE TO ENDOMETRIOSIS Family History Other Aneurysm Cancer No family history of adverse response to anesthesia Stroke Social History Smoking Status: Current every day smoker Tobacco Type: Cigarettes Second Hand Exposure: Yes; Do You Dip or Chew Tobacco: No; Tobacco Cessation Education Requested by Patient: No Hx Alcohol Use: Yes Alcohol type: beer Hx Substance Use: No Preferred Language: Norwegian Communication Ability: Effective 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 Required: No Beliefs That Will Affect Care: None marital status: Current Living Situation: Family Current Living Situation Comment: lives with fiance and 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 How many Children do You have: 3 Other Information That Helps Us Care for You: No Feels Safe at Home: Yes Safety Concerns: Feels Safe At This Time Assistive Devices: Walker Review of Systems Review of Systems: All systems reviewed & are unremarkable except as noted in HPI & below Physical Exam Physical Exam: General: no acute distress, chronic ill appearing female, appears older than stated age, disheveled, WDWN Head: normocephalic, atraumatic Eyes: conjunctiva non-injected, anicteric ENT: normal inspection external ears, nose, mucous membranes moist Neck: supple, trachea midline Lungs: clear, no respiratory distress, no wheezing/rhonchi/rales CV: RRR, no murmur, no pretibial edema Abd: + Distended, palpable mass (old pain pump), normal BS, soft, diffuse tenderness to palpation Ext: no cyanosis, no calf tenderness Neuro: A&O x 3, no focal deficits noted, normal affect Skin: warm, dry Results & Data Results & Data ([facility]) Vital Signs (Past 12 Hours) Vital Signs Temp Pulse Pulse Resp BP BP Pulse Ox 04/07/22 12:55 66 04/07/22 11:00 68 16 94 04/07/22 11:00 119/68 04/07/22 10:30 73 17 94 04/07/22 10:30 119/71 04/07/22 10:00 72 19 97 04/07/22 10:00 123/79 04/07/22 09:30 89 31 H 97 04/07/22 09:00 87 31 H 98 04/07/22 09:00 130/88 04/07/22 08:55 77 19 100 04/07/22 08:57 98 04/07/22 09:07 37.2 C 04/07/22 09:06 83 20 130/88 99 04/07/22 09:01 96 H 20 130/88 99 04/07/22 08:58 93 H O2 Del Method 04/07/22 12:55 04/07/22 11:00 Room Air 04/07/22 11:00 04/07/22 10:30 Room Air 04/07/22 10:30 04/07/22 10:00 Room Air 04/07/22 10:00 04/07/22 09:30 Room Air 04/07/22 09:00 Room Air 04/07/22 09:00 04/07/22 08:55 Room Air 04/07/22 08:57 Room Air 04/07/22 09:07 04/07/22 09:06 Room Air 04/07/22 09:01 Room Air 04/07/22 08:58 Laboratory Results Short CBC 04/07/22 Range/Units 09:27 WBC 3.14 L (4.8-10.8) K/ul Hgb 9.2 L (12.0-16.0) g/dl Hct 29.2 L (37.0-47.0) % Plt Count 137 (130-400) K/uL BMP 04/07/22 09:27 Sodium 136 Potassium 2.9 L Chloride 99 Carbon Dioxide 32 BUN 10 Creatinine 0.46 L Glucose 112 H Calcium 9.0 Liver Function 04/07/22 Range/Units 09:27 Total Bilirubin 2.9 H (0.2-1.0) mg/dl AST 27 (13-39) U/L ALT 14 (7-52) U/L Alkaline Phosphatase 144 H (34-104) U/L Albumin 3.6 (3.4-5.0) gm/dl Diagnostic Findings Abdomen/Pelvis CT 04/07/22 08:[address] WITH IV CONTRAST CT DOSE: 316.48 mGy.cm HISTORY: upper and lower GI bleed TECHNIQUE: Multiaxial CT images of the abdomen and pelvis were performed following the use of intravenous contrast. A dose lowering technique was utilized adhering to the principles of ALARA. COMPARISON STUDY: Abdomen and pelvis CT 03/01/2022. FINDINGS: There are low lung volumes with bibasilar linear densities consistent with subsegmental atelectasis. No pneumoperitoneum. No pneumatosis. There is a left dynamic hip screw again noted. Advanced degenerative changes within the left hip. Old, healed sacral fracture. Multiple old compression deformities again noted within the thoracic and lumbar spine. This includes a subacute to chronic mild superior endplate compression deformity at L2. No acute fractures identified. Old, healed bilateral rib fractures. Right lower quadrant subcutaneous pain pump with the catheter extending to the right lower lumbar subcutaneous soft tissues. The catheter is looped at this location. This catheter does not extend into the spinal canal. This remains unchanged. Nodular contour to the liver consistent with cirrhosis. Prior cholecystectomy. The main portal vein is patent. The spleen is enlarged measuring 14 cm in length. The adrenal glands, pancreas, and kidneys unremarkable. Normal caliber abdominal aorta. No retroperitoneal lymphadenopathy. Large volume ascites persists. Recanalization of the umbilical vein again noted. Diffusely thickened large and small bowel which has progressed in the interval. This most pronounced at the gastrojejunostomy site. However, no dilated loops of bowel to suggest an obstruction. IMPRESSION: 1. Diffusely thickened large and small bowel most pronounced at the gastrojejunostomy site. This has progressed in the interval. This could be due to the patient's diffuse edematous state or a nonspecific enterocolitis. 2. No evidence for bowel obstruction. 3. Cirrhosis with splenomegaly. 4. Large volume ascites persists. 5. Additional findings as described above. ACT 112: Negative or not required by law. Electronically signed by: Brennen King M.D. 04/07/2022 12:38 PM Chest X-Ray 04/07/22 08:53 XR chest 1V portable CLINICAL HISTORY: Hematemesis. COMPARISON STUDY: Chest CT February 06, 2021 and chest radiograph March 02, 2022. FINDINGS: Suspected skin folds project over the bilateral hemithoraces. Elevation of the right hemidiaphragm is unchanged. There is no consolidation to suggest pneumonia. Cardiomediastinal silhouette is normal. No evidence for pulmonary edema. Old right-sided rib fractures are noted. Lucency projecting over the right quadrant probably reflects gas within bowel. IMPRESSION: 1. Suspected skin folds projecting over the bilateral hemithoraces. A right pneumothorax is considered less likely but would be difficult to exclude and radiographic follow-up is recommended. 2. No change in elevation of the right hemidiaphragm. 3. Lucency projecting over the right upper quadrant. This likely reflects gas within bowel. ACT 112: Negative or not required by law. Electronically signed by: Benedict Vaughn M.D. 04/07/2022 9:[address] 04/07/22 12:36 CT SCAN OF THE CHEST WITHOUT IV CONTRAST CLINICAL HISTORY: Abnormal chest x-ray. Concern for pneumothorax. COMPARISON STUDY: Chest CT dated 02/06/2021. Chest x-ray dated 04/07/2022. TECHNIQUE: CT scan of the thorax was performed from the thoracic inlet to the upper abdomen. Images are reviewed in the axial, sagittal, and coronal planes. IV contrast was not administered for this examination as per the referring clinician. A dose lowering technique was utilized adhering to the principles of ALARA. CT DOSE: 153.00 mGy.cm FINDINGS: Thyroid: Imaged portions of the thyroid gland are normal in size and attenuation. Thoracic aorta: There is moderate atherosclerotic calcification of the thoracic aorta, which is normal in caliber and demonstrates standard 3-vessel arch anatomy. Heart: The heart is top normal in size noting trace pericardial effusion. Lungs and pleural spaces: There is no pneumothorax. There is chronic elevation of the right hemidiaphragm with bibasilar scarring/atelectasis. There are scattered calcified granulomas. No airspace consolidation typical for pneumonia or pleural effusion is identified. 2 to 3 mm right lower lobe pulmonary nodules seen on images #91 and #97 are unchanged from previous. The trachea and central airways are clear. Mediastinum: There is no mediastinal lymphadenopathy. Melody: Not well assessed without IV contrast. Axillae: There is no axillary lymphadenopathy. Upper abdomen: The liver is cirrhotic in morphology and heterogeneous attenuation. There is hypertrophy of the left lobe and nodularity of the hepatic surface contour. A moderate to large volume of abdominal ascites is seen in the upper abdomen. The spleen is enlarged. Postsurgical change is noted in the stomach. The gastric pouch is distended. No extraluminal gas is seen. Skeletal structures: The skeletal structures are osteopenic. There are chronic/healed bilateral rib fractures. Numerous chronic compression deformities are noted in the thoracic spine. No lytic or blastic bony lesions are seen. IMPRESSION: 1. No pneumothorax is identified. The abnormality questioned by x-ray likely corresponds to skin folds. 2. There is no airspace consolidation typical for pneumonia or pleural effusion. 3. Cirrhotic liver morphology, splenomegaly, and ascites is noted in the upper abdomen. 4. Additional findings as above. ACT 112: Negative or not required by law. Electronically signed by: Herbie Reese M.D. 04/07/2022 2:15 PM Supervising Physician Co-Signing Physician Notes Date of Service: April 07, 2022 History and physical exam performed by me. History notable for 57-year-old woman With alcoholic cirrhosis, recent hospitalization for decompensated alcoholic cirrhosis with ascites who presents with dark stools for 5 days and hematemesis this morning. Reports generalized abdominal pain described as cramping, severe. Reports generalized chronic body pains. Denies dizziness, palpitation, cough, shortness of breath Exam notable for chronically ill looking woman in no obvious distress, abdomen is distended, mild tenderness, no guarding, positive bowel sounds. Labs notable for WBC of 3, hemoglobin of 9.2, INR of 1.2, potassium of 2.9, normal BUN of 10, alkaline phosphatase of 144. Chest x-ray has reported possible pneumothorax Chest CT did not show any pneumothorax but noted abnormality seen on x-ray corresponds to skinfold. Abdominal CT noted diffusely thickened large and small bowel most pronounced at the gastrojejunostomy site which may be due to patient's diffuse edema versus nonspecific enterocolitis. No evidence of bowel obstruction. Large volume ascites. Decompensated alcoholic cirrhosis with ascites. Report of hematemesis, hematochezia. Hypokalemia IV PPI drip, IV octreotide Start IV ceftriaxone Get therapeutic and diagnostic paracentesis. GI consult Monitor hemoglobin Repeat hypokalemia. Check magnesium and replete electrolytes as needed Keep n.p.o. for possible endoscopy Other plans as detailed by Eli Suarez PA-C (1) GIB (gastrointestinal bleeding) GI bleed type/associated pathology: unspecified gastrointestinal hemorrhage type Qualified Code(s): K92.2 - Gastrointestinal hemorrhage, unspecified (2) Cirrhosis Hepatic cirrhosis type: alcoholic cirrhosis (6) Abdominal ascites Ascites type: due to alcoholic cirrhosis Qualified Code(s): K70.31 - Alcoholic cirrhosis of liver with ascites
[2022-04-07] MEDS: POTASSIUM CHLORIDE / WTR 10 MEQ/100 ML PLCT IV SCH (15:09)
--- NOTE | 2022-04-07 15:40 | Communication Note ---
Date of Service: April 07, 2022 History and physical exam performed by me. History notable for 57-year-old woman With alcoholic cirrhosis, recent hospitalization for decompensated alcoholic cirrhosis with ascites who presents with dark stools for 5 days and hematemesis this morning. Reports generalized abdominal pain described as cramping, severe. Reports generalized chronic body pains. Denies dizziness, palpitation, cough, shortness of breath Exam notable for chronically ill looking woman in no obvious distress, abdomen is distended, mild tenderness, no guarding, positive bowel sounds. Labs notable for WBC of 3, hemoglobin of 9.2, INR of 1.2, potassium of 2.9, normal BUN of 10, alkaline phosphatase of 144. Chest x-ray has reported possible pneumothorax Chest CT did not show any pneumothorax but noted abnormality seen on x-ray corresponds to skinfold. Abdominal CT noted diffusely thickened large and small bowel most pronounced at the gastrojejunostomy site which may be due to patient's diffuse edema versus nonspecific enterocolitis. No evidence of bowel obstruction. Large volume ascites. Decompensated alcoholic cirrhosis with ascites. Report of hematemesis, hematochezia. Hypokalemia IV PPI drip, IV octreotide Start IV ceftriaxone Get therapeutic and diagnostic paracentesis. GI consult Monitor hemoglobin Repeat hypokalemia. Check magnesium and replete electrolytes as needed Keep n.p.o. for possible endoscopy Other plans as detailed by Eli Suarez PA-C
[2022-04-07 15:58] LABS: Magnesium 1.8 mg/dl (1.7-2.4)
[2022-04-07] MEDS ORDERED: POTASSIUM CHLORIDE / WTR 10 MEQ/100 ML PLCT IV ONE (16:26)
[2022-04-07] MEDS ORDERED: ACETAMINOPHEN 325 MG TAB PO PRN (16:26)
[2022-04-07] MEDS: OCTREOTIDE ACETATE 500 MCG in DEXTROSE 5% 100 ML IV SCH (17:25)
[2022-04-07] MEDS: PANTOprazole 40 MG in DEXTROSE 5% 100 ML IV SCH ×2 (17:25→22:10)
[2022-04-07] MEDS: PANCREAZE (LIPASE 10,500U) CAP PO SCH ×2 (17:26→21:06)
[2022-04-07] MEDS: MIDODRINE HCL 2.5 MG TAB PO SCH (18:01)
[2022-04-07 18:29] LABS: BUN Creatinine Ratio 26.8 (10-20); Calcium 7.9 mg/dl (8.5-10.1); Creatinine Clr Calc Pharmacy 118.3 ml/min; Est GFR (Non-African American) 113.9 ml/min; Potassium 3.6 mmol/L (3.5-5.1)
[2022-04-07] MEDS: GABAPENTIN 600 MG TAB PO SCH (21:05)
[2022-04-07] MEDS: rifAXIMin 550 MG TABLET PO SCH (21:05)
[2022-04-07] MEDS: GABAPENTIN 100 MG CAP PO SCH (21:05)
[2022-04-07] MEDS: COLESTIPOL HCL 1 GM TAB PO SCH (21:05)
[2022-04-07] MEDS: traZODone HCL 50 MG TAB PO SCH (21:06)
[2022-04-07] MEDS: LACTULOSE SYRUP 20 GM/30 ML UDC PO SCH (21:06)
[2022-04-07] MEDS: rOPINIRole HCL 0.25 MG TABLET PO SCH (21:06)
[2022-04-08] MEDS: OCTREOTIDE ACETATE 500 MCG in DEXTROSE 5% 100 ML IV SCH (01:44)
[2022-04-08] MEDS: PANTOprazole 40 MG in DEXTROSE 5% 100 ML IV SCH ×2 (03:35→08:11)
[2022-04-08] MEDS: POTASSIUM CHLORIDE / WTR 10 MEQ/100 ML PLCT IV SCH (08:11)
[2022-04-08] MEDS: LACTULOSE SYRUP 20 GM/30 ML UDC PO SCH ×3 (08:12→19:57)
[2022-04-08] MEDS: SPIRONOLACTONE 100 MG TAB PO SCH (08:13)
[2022-04-08] MEDS: FUROSEMIDE 40 MG TAB PO SCH ×2 (08:13→19:54)
[2022-04-08] MEDS: FOLIC ACID 1 MG TAB PO SCH (08:13)
[2022-04-08] MEDS: THIAMINE HCL 100 MG TAB PO SCH (08:13)
[2022-04-08] MEDS: COLESTIPOL HCL 1 GM TAB PO SCH ×2 (08:13→19:54)
[2022-04-08] MEDS: CITALOPRAM 20 MG TAB PO SCH (08:13)
[2022-04-08] MEDS: rifAXIMin 550 MG TABLET PO SCH ×2 (08:14→19:54)
[2022-04-08] MEDS: PANCREAZE (LIPASE 10,500U) CAP PO SCH ×4 (08:14→19:53)
[2022-04-08] MEDS: MIDODRINE HCL 2.5 MG TAB PO SCH ×3 (08:15→17:06)
[2022-04-08] MEDS ORDERED: cefTRIAXone SODIUM 1,000 MG in DEXTROSE 5% AD-VAN 50 ML IV SCH (09:00)
[2022-04-08 09:02] LABS: Hematocrit (blood only) 23.3 % (37.0-47.0); Hemoglobin 7.3 g/dl (12.0-16.0); Mean Corpuscular Hemoglobin 24.6 pg (25.0-34.0); Mean Corpuscular Hgb Conc 31.3 g/dL (32.0-36.0); Mean Corpuscular Volume 78.5 fL (80.0-100.0); Mean Platelet Volume 9.6 fL (9.4-12.4); Platelet Count 96 K/uL (130-400); RDW Coefficient of Variation 22.7 % (11.5-14.5); RDW Standard Deviation 64.5 fL (36.4-46.3); Red Blood Count 2.97 M/uL (4.20-5.40); White Blood Count 1.55 K/ul (4.8-10.8)
[2022-04-08 09:05] LABS: Albumin Globulin Ratio 1.1 (0.9-2); BUN Creatinine Ratio 19.6 (10-20); Bilirubin,Total 1.7 mg/dl (0.2-1.0); Calcium 8.2 mg/dl (8.5-10.1); Creatinine Clr Calc Pharmacy 107.8 ml/min; Est GFR (African American) 122.8 ml/min; Globulin 2.8 gm/dl (2.5-4.0); Magnesium 1.8 mg/dl (1.7-2.4); Potassium 3.1 mmol/L (3.5-5.1); Total Protein 5.8 gm/dl (6.0-8.3)
[2022-04-08 09:30] LABS: Anisocytosis Present; Basophils # (auto) 0.02 K/uL (0-0.2); Basophils % (auto) 1.3 %; Eosinophils # (auto) 0.03 K/uL (0-0.50); Eosinophils % (auto) 1.9 %; Lymphocytes # (auto) 0.31 K/uL (1.2-3.4); Monocytes # (auto) 0.22 K/uL (0.11-0.59); Monocytes % (auto) 14.2 %; Neutrophils # (auto) 0.97 K/uL (1.40-6.50); Neutrophils % (auto) 62.6 %; Polychromasia 1+; Spherocytes 1+
--- NOTE | 2022-04-08 09:34 | Palliative Care Consultation ---
Date of Consultation April 08, 2022 Assessment & Plan (1) Palliative care encounter: Met with pt. Provided overview of Palliative Medicine, a subspecialty that provides specialized medical care for people living with a serious illness by offering a focus on quality of life. Palliative Medicine is often conflated with hospice: I advised patient/family that Palliative and hospice can be partners but we are not the same. It is important to understand the difference so that we may be informed, and not afraid. Palliative Medicine works to improve QOL through reduction of symptom burden/more control over their illness, for both the patient and family. Palliative medicine clinicians are board certified, s pecially-trained and another member of the patient's medical care team. We often provide an extra layer of support because our care is based on the needs of the patient, not the prognosis; as such, it's appropriate at any age/advancing stage of a serious illness and can be provided along with curative treatment. Palliative Medicine clinicians are also trained in advanced communication methodologies, to facilitate complex discussions about advanced illness planning, which are needed to help assure that the treatment choices match the patient's goals, aka delivering Goal Concordant care. Finally, we discussed that hospice is a visiting nurse service that focuses on care delivered at the very end of life for patients with terminal illness, with life expectancy less than 6 month. (2) Advanced care planning/counseling discussion: A face to face ACP/ GOC discussion was held with pt at bedside for 45min following my eval and consult exam. She is clear about desire to focus on comfort, aware of prognosis and limited time. She says pain is a constant in her life. She denies any hx of opioid abuse or misuse, even though I did note to her this is recorded in the chart. She provided a lengthy explanation of her perceived mismanagement of pain needs and pain pump deactivation, then noting she did not have the means to return to her pain pump provider in [place] for further mgt after the SNF turned it off. She has had numerous conversations with PCP and GI regarding prognosis, limited time and goals fo care. She wants hospice but states she has encountered numerous trouble getting hospice, citing example of a time where hospice nurse apparently told her "you're not yellow enough for us." She feels she has been "given the runaround and no body wants to help. Nobody even tries." We spoke about the range of hospice services and I provided education about the hospice benefit. Hospice is an interdisciplinary program offered by nurses, nurses aides, social workers, chaplains and a medical record retrieval specialist for patients with a terminal condition and a life expectancy of less than 6 months. The goal would be to improve the quality of life of the patient in their home setting (home, residential, inpatient hospice setting) by providing symptoms management, psychosocial and spiritual support. However, they cannot offer 24 hours care and if the family is unable to provide that care, they will have to consider personal care with out of pocket cost vs. residential placement. I asked her to clarify her goals and she replied: "I don't want to come back here, it killed me that I had to come to the ER and get admitted. I just want to be home, better pain control and just be as happy as I can for whatever time, I don't know they told me like 6 mos or something." (3) Abdominal pain: due to decompensated alcoholic cirrhosis with ascites. she has been started on IV PPI drip, IV octreotide, IV ceftriaxone She is pending therapeutic and diagnostic paracentesis. + has had GI consult She is NPO possible endoscopy (4) Gastrointestinal hemorrhage with hematemesis: ?EGD (5) Chronic pain: Long standing hx chronic pain with opioid abuse, misuse, and reportedly has an implanted pain pump with a vague explanation that it hasn't been sued in years because she "couldn't afford the meds" - would note that implantable pumps do not have routine co-pays, they are generally prior authorized and co insurance may apply, however she has a medicaid plan without copays/deductibles as it is a need and low income based coverage plan. Suggest that her prior pain pump provider be contacted or notes obtained. (6) Opioid abuse: See #5 above (7) Non-compliant behavior: (8) Alcoholism with alcohol dependence: Complication of substance-induced condition: uncomplicated Substance use status: in withdrawal Qualified Code(s): F10.230 - Alcohol dependence with withdrawal, uncomplicated Plan * Most opioids are at least partially metabolized by the liver, which complicated their use in liver failure. Hepatic drug metabolism may occur through the cytochrome (CYP) P450 enzyme system (TMM701 enzymes most relevant in palliative medicine include CY, 2D6, 2C9, 2C19, 3A3 and 3A4; most opioids are metabolized by these enzymes.) In hepatic failure, opioid clearance is reduced and drug bioavailability is increased (secondary to reduced hepatic blood flow, limiting first-pass metabolism, or decreased ETF985 enzyme levels in patients.) Conjugation and glucuronidation comprise the second group of chemical reactions in the live, which are less affected in hepatic disease due to glucuronidation enzyme preservation and also because of extrahepatic glucuronidation processes. Glucuronidated opioid metabolites are generally renally excreted. Changes such as decreased serum albumin and ascites can also alter opioid volume of distribution which can lead to either increased or decreased drug concentrations, although there is no practical way to test for or predict this apart from close clinical observation. The right dose of opioid will be the dose that provides adequate pain relief in conjunction with an acceptable side effect profile, which becomes especially true in end stage liver disease. Opioid doses should not be decreased solely out of concern for hepatic disease (e.g., if a patient with ESLD appears to tolerate and require q3 hour dosing of oxycodone, that dosage should continue). In general, lower doses of most opioids should be initiated in patients with ESLD, and we should continue to exercise caution with our prescribing opioids at scheduled dosing intervals until patients have demonstrated an ability to tolerate them. Patients with deteriorating liver function should be closely monitored for signs of drug accumulation and need for dose reductions, assuming the level of analgesia remains acceptable. Finally, potential drug interactions involving the HXH663 enzyme system must always be considered as there is potential for non-opioid medications to either induce or inhibit the metabolism of any opioid that is a XNJ555 enzyme substrate. All this being said, the above approach becomes less necessitated if the goal of care is to assure comfort for end of life liver failure for a patient on a hospice guided/hospice oversight plan of care. * She has had prior relief with oral morphine, so I will restart a trial of MS IR 15mg PO q2h prn for mod to severe pain. I would avoid using IV unless she is NPO, as this will potentially hinder hospice disposition planning - she needs to be a regimen which can be transitioned to the home hospice plan of care. I do not feel she needs a MOTEL MANAGER at this time. * She would like home with hospice. She is agreeable to EGD and paracentesis if either or both may help improve her comfort and help her return home feeling less pain. * I have updated CM and primary team re plan; pt would like [facility] bc she has good experience with their home health teams. 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 She carries a complex medical hx outlined below (copied from ED note/modified for space/repetition dx deleted): Alcohol abuse/active Anxiety Chronic pain Cirrhosis Degenerative disc disease Esophageal varices with banding Factitious disorder Fibromyalgia Hypomagnesemia Lumbago Multiple sclerosis Opiate addiction + opiate misuse Pancreatitis Pelvis fracture: pt reports crushed pelvis from falling into dumpster Presence of intrathecal pump: pt states "PUMP IN PLACE AND NOT WORKING IT WAS TURNED OFF!!!" --> containing morphine 0.189mg/day and fentanyl 2.52mcg/day miminimal rate/per pt "it doesnt work I haven't been able to afford the medication for 3 years now"?? 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 H&H: 9.2/29. Hgb was 8.7 on 03/06/2022. PLT: 137, INR 1.2. Labs around baseline CT ABD/PELVIS: 1. Diffusely thickened large and small bowel most pronounced at the gastrojejunostomy site. This has progressed in the interval. This could be due to the patient's diffuse edematous state or a nonspecific enterocolitis. 2. No evidence for bowel obstruction. 3. Cirrhosis with splenomegaly. 4. Large volume ascites persists. 5. Additional findings as described above. She is currently on Rocephin, Octreotide gtt, PPI drip GI consult was requested and possible EGD A diagnostic paracentesis is planned to r/o SBP Pt is seen bedside, no family is present. She tells me her pain is all over and worsened in abdomen it is severe and unrelenting, can come in waves and she shudders as it works through her has used morphine in past for breakthrough pain she tells me her pain pump was implanted at [facility] in [place] approx 5-6 yr, by ? Dr Lujan (she is unsure about the name) for chronic complex pain mgt after she had a traumatic fall and then went to SNF rehab, it was beeping and then SNF team called someone in to deactivate it. She cannot recall who deactivated it but she feels nursing at SNF told her that it cannot be reactivated. Siena tells me she lives alone in her own home but both adult children lives across the street. Her son works for [employer] and her daughter is a computerized machine fabric cutter currently laid off from work. She is not working and remains on disability. She states that after paying her monthly bills she has only $100 lef t to live on for the rest of the month and she stresses about being able to meet her needs. She says her PCP was trying to get her on hospice for a while but hospice has not contacted her and at one point she was told they had her telelphone number wrong and never made another effort. She is overwhelmed. She states during her last admission she was made aware of her prognosis and understands she may have 6 mos or so to live. She and her PCP have had conversations re hospice and she would like to transition to a focus on comfort care. She tells me she yan snot want to keep coming to hospital, wants symptoms managed at home and focus on comfort so she can enjoy whatever time she has with her family. Allergies Allergy/AdvReac Type Severity Reaction Status Date / Time diphenhydramine Allergy Severe seizures/it Verified 04/07/22 15:13 mya/tremo rs bupropion Allergy Intermediate Palpitation Verified 04/07/22 15:13 s clarithromycin Allergy Intermediate HIVES Verified 04/07/22 15:13 aspirin Allergy Mild hives/ringing Verified 04/07/22 15:13 of ears oxaprozin Allergy Mild nausea/vomi Verified 04/07/22 15:13 ting salicylates Allergy Mild ringing in Verified 04/07/22 15:13 ears/hives Home Medications Medication Instructions Recorded Confirmed Type diclofenac sodium 1 % topical gel 1 ea topical BID PRN Pain 03/02/22 04/07/22 History gabapentin 100 mg capsule 100 mg PO HS 03/02/22 04/07/22 History citalopram 20 mg tablet 20 mg PO QAM #30 tabs 03/06/22 04/07/22 Rx colestipol 1 gram tablet 2 g PO BID 30 days #120 tabs 03/06/22 04/07/22 Rx folic acid 1 mg tablet 1 mg PO QAM #30 tabs 03/06/22 04/07/22 Rx furosemide 40 mg tablet 40 mg PO BID #60 tabs 03/06/22 04/07/22 Rx gabapentin 600 mg tablet 600 mg PO HS #30 tabs 03/06/22 04/07/22 Rx hydroxyzine HCl 25 mg tablet 25 mg PO BID PRN Anxiety #30 tabs 03/06/22 04/07/22 Rx lactulose 10 gram/15 mL oral 30 ml PO TID #946 mL 03/06/22 04/07/22 Rx solution lidocaine 5 % topical patch 1 patch transdermal QAM PRN Pain 03/06/22 04/07/22 Rx #15 ea uzeprk-wastqlwz-uyjwawi 1 cap PO QID #120 caps 03/06/22 04/07/22 Rx 36,000-114,000-180,000 unit capsule,delay rel (Creon) magnesium oxide 400 mg (241.3 mg 400 mg PO QAM #30 tabs 03/06/22 04/07/22 Rx magnesium) tablet midodrine 5 mg tablet 5 mg PO TID #90 tabs 03/06/22 04/07/22 Rx omeprazole 40 mg capsule,delayed 40 mg PO DAILY #30 caps 03/06/22 04/07/22 Rx release potassium chloride 10 mEq 10 meq PO DAILY #30 tabs 03/06/22 04/07/22 Rx tablet,extended release(part/cryst) rifaximin 550 mg tablet (Xifaxan) 550 mg PO BID #60 tabs 03/06/22 04/07/22 Rx ropinirole 0.25 mg tablet 0.25 mg PO HS #30 tabs 03/06/22 04/07/22 Rx spironolactone 100 mg tablet 100 mg PO DAILY #30 tabs 03/06/22 04/07/22 Rx thiamine HCl (vitamin B1) 100 mg 100 mg PO QAM #30 tabs 03/06/22 04/07/22 Rx tablet trazodone 50 mg tablet 50 mg PO QPM #30 tabs 03/06/22 04/07/22 Rx ondansetron 4 mg disintegrating 4 mg PO BID PRN nausea and 03/07/22 04/07/22 Rx tablet vomiting #14 tabs Patient History Medical History (Updated 04/08/22 @ 10:09 by ELANA Yang) Advanced care planning/counseling discussion Alcohol abuse hx of Alcoholism with alcohol dependence Anxiety Anxiety Chronic pain Cirrhosis Cirrhosis Degenerative disc disease Esophageal varices with banding Factitious disorder Fibromyalgia Hypomagnesemia Lumbago Multiple sclerosis Non-compliant behavior Opiate addiction HX OF AND NO PROBLEMS NOW Opiate misuse Opioid abuse Pancreatitis Pelvis fracture HX OF CRUSHED PELVIS - FROM ACCIDENT FALLING INTO DUMPSTER CHRONIC PAIN Presence of intrathecal pump PUMP IN PLACE AND NOT WORKING IT WAS TURNED OFF!!! containing morphine 0.189mg/day and fentanyl 2.52mcg/day miminimal rate per pt "it doesnt work I haven't been able to afford the medication for 3 years now"?? Seizures LAST ONE SEVERAL MONTHS AGO -- TAKES GABAPENTIN FOLLOW WITH DOCTOR KATHARINE ABRAHAM FROM [place] Stenosis of surgical anastomosis site of digestive tract Surgical History History of cholecystectomy History of colonoscopy History of esophagogastroduodenoscopy (EGD) History of open reduction and internal fixation (ORIF) procedure left arm/left leg--hardware in place History of Jeffy-en-Y gastric bypass History of tooth extraction all teeth removed History of total hysterectomy with bilateral salpingo-oophorectomy (BSO) Hx of laparoscopy FOR ENDOMETRIOSIS Hx of resection of small bowel DUE TO ENDOMETRIOSIS Family History Other Aneurysm Cancer No family history of adverse response to anesthesia Stroke Social History Smoking Status: Current every day smoker Tobacco Type: Cigarettes Second Hand Exposure: Yes; Do You Dip or Chew Tobacco: No; Tobacco Cessation Education Requested by Patient: No Hx Alcohol Use: Yes Alcohol type: beer Hx Substance Use: No Preferred Language: [place] Communication Ability: Effective Type Bar And Segment Assembler Required: No Beliefs That Will Affect Care: None marital status: Current Living Situation: Family Current Living Situation Comment: lives with fiance and has home health PT and certified personal finance counselor How many Children do You have: 3 Other Information That Helps Us Care for You: No Feels Safe at Home: Yes Safety Concerns: Feels Safe At This Time Assistive Devices: Walker Review of Systems Review of Systems: All systems reviewed & are unremarkable except as noted in Subjective Physical Exam Constitutional: + acute distress, + ill appearing, + thin, + frail appearing, + disheveled and + malnourished Eyes: PERRL and EOM intact bilaterally ENMT: Mouth: + dry oral mucous membranes Neck: trachea midline Thyroid: normal thyroid Respiratory: normal respiratory effort and able to speak in complete sentences Auscultation: lungs clear to auscultation bilaterally Cardiovascular: Rate/Rhythm: regular rate and regular rhythm Gastrointestinal (Abdomen): Inspection/Auscultation: + abdomen distended Percussion/Palpation: + abdomen tender, + abdomen rigid, + dullness to percussion and + fluid wave Musculoskeletal: Head/Neck/Chest: normocephalic and head atraumatic antalgic gait, +walker Skin: + turgor decreased, + skin tightening, + jaundice and + dry skin Neurologic: normal touch/pain/proprioception and awake Gait: + gait assisted Psychiatric: Orientation: alert and oriented x 3 Apperance: + disheveled Eye Contact: + fair eye contact Speech: + pressured speech Affect: + anxious affect and + tearful affect Mood: + anxious mood Thought Process: + perseveration Thought Content: + preoccupation and + self deprecation Cognition: recent memory grossly intact, remote memory grossly intact, attention grossly intact and language grossly intact Estimated Intelligence: consistent with education level Insight: good insight Judgment: + fair judgement Results & Data ([facility]) Vital Signs (Past 12 Hours) Vital Signs Temp Pulse Pulse Resp BP BP Pulse Ox 04/08/22 07:59 37.2 C 73 18 101/60 93 04/08/22 07:30 66 04/08/22 03:05 36.9 C 62 18 103/64 91 04/07/22 23:00 37.0 C 69 20 93/65 L 90 04/07/22 23:00 74 O2 Del Method 02/23/23 07:59 Room Air 04/08/22 07:30 04/08/22 03:05 Room Air 04/07/22 23:00 Room Air 04/07/22 23:00 Laboratory Results data reviewed Diagnostic Findings data reviewed Medications Administered rocephin, sandostatin, ppi drip PG Care Time/CCT Total # of Minutes Spent Total Time Spent: 75 Total Time Spent with Patient: Total time spent is greater than 50% in coordination of care (as documented) at patient's floor/unit and/or counseling patient: Coding Level of Care Code New Pt INP/OBS CONSULT LVL 5, 80 MIN Patient Type New History Comprehensive Exam Comprehensive Medical Decision Making High Complexity Diagnoses Palliative care encounter Z51.5 Advanced care planning/counseling discussion Z71.89 Abdominal pain R10.9 Gastrointestinal hemorrhage with hematemesis K92.0 Chronic pain G89.29 Opioid abuse F11.10 Non-compliant behavior R46.89 Alcoholism with alcohol dependence F10.230 Complication of substance-induced condition: uncomplicated Substance use status: in withdrawal
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
[2022-04-08] MEDS: PANTOprazole 40 MG in SYRINGE 0 ML IV SCH ×2 (12:05→19:55)
[2022-04-08] MEDS ORDERED: POTASSIUM CHLORIDE CRTAB 20 MEQ TABCR PO STA (13:34)
--- NOTE | 2022-04-08 13:54 | Hospitalist Progress Note ---
Date of Service April 08, 2022 Assessment & Plan (1) Cirrhosis: Plan 57 y/o F with PMH of alcohol abuse, end-stage liver disease, esophageal varices, portal hypertension, hypothyroidism, peripheral neuropathy, history of convulsions, depression, anxiety, RLS, history of narcotic abusepresented to ER 04/07 with complaint of diffuse abdominal cramping and melena x 5 days. States today vomited red blood x1. She is being managed for the following: GIB (gastrointestinal bleeding): Possible colitis: will use unasyn. In ER vitals stable. H&H: 9.2/. Hgb was 8.7 on 03/06/2022. PLT: 137, INR 1.2. Labs around baseline Admitting CT ABD/PELVIS: 1. Diffusely thickened large and small bowel most pronounced at the gastrojejunostomy site. This has progressed in the interval. This could be due to the patient's diffuse edematous state or a nonspecific enterocolitis. 2. No evidence for bowel obstruction. 3. Cirrhosis with splenomegaly. 4. Large volume ascites persists. 5. Additional findings as described above. Stool culture, C. difficile sent Admitting Blood cultures: f/u GI evaled, US guided paracentesis, ppi iv bid, clears and adat. No endoscopic eval as pt declined EGD. Palliative evaled, plan for discharge to home w/ hospice after paracentesis. Pain Mx. d/w both GI and Pall and plan as above. Awaiting USG paracentesis and hospice set up. Had an episode of bloody BM today, d/w GI and likely it is from colitis rather than variceal bleed. Monitor HnH and transfuse for Hb < 7 or symptomatic anemia. c/w unasyn. c/w PPI IV BID, Clears, ADAT. Cirrhosis: Esophageal varices: Portal hypertensive gastropathy: Pancytopenia: Plan: H/O end-stage liver disease, esophageal varices, portal hypertension, gastric varices s/p embolization Continue rifaximin, lactulose, lasix, spironolactone. Abdominal ascites: Recent [facility] hospitalization 03/02/2022-03/07/2022 and had abdominal paracentesis x 2 with removal of 4 L Abdominal ascites secondary to decompensated alcoholic cirrhosis R/O SBP Diagnostic/therapeutic paracentesis - awaiting Will plan to give albumin after paracentesis Acute hypokalemia: acute on chronic hypokalemia; monitor and replete Chronic pain: h/o narcotic abuse; not on chronic opioids currently. Alcohol abuse: History of alcohol abuse, reports no EtOH intake in the last month, counseled on need for continued alcohol cessation. Continue thiamine and folic acid. DVT Prophylaxis: SCDs due to bleeding DNR/DNI as per discussion with pt Follows with Dr Moya for routine care Admission and Anticipated Discharge Date Admission Date: April 07, 2022 Subjective Patient seen and examined at bedside as a follow-up of GI bleed and ascites in the setting of/history of end-stage liver disease, pancytopenia, portal hypertensive gastropathy, esophageal varices. Patient was lying in bed, on room air, in mild distress, reports having pain in her belly/lower back/both lower limbs, denies any fever or chills in the last 1 week, reports mild headache and feeling weak. Patient was n.p.o. in the morning awaiting for GI eval for possible EGD scope, discussed with GI/patient was offered EGD evaluation which patient declined. Patient to go for paracentesis today and to home with hospice tomorrow. Discussed with palliative care team. Physical Exam Physical Exam: GENERAL: Alert and oriented x3. mild distress, on RA. Chronically ill/frail/weak/lean and thin appearing. Appears older than stated age. HEENT: No pallor, no icterus. Pupils equal, round and reactive to light. Oral mucosa moist. NECK: No JVD, no neck masses. HEART: S1 and S2 heard. Regular rate and rhythm. No murmur, no gallop. RESPIRATORY SYSTEM: Normal AP diameter. No accessory muscle use. No wheezing, no crackles. ABDOMEN: Soft, bowel sounds present, has subcu pain pump/no ss of infection, + distention. diffusely tender - improving. CENTRAL NERVOUS SYSTEM: No facial droop. Speech is clear. Obeys simple commands. Moves extremities. EXTREMITIES: No edema, no erythema seen. Results & Data Results & Data ([facility]) Vital Signs (Past 12 Hours) Vital Signs Temp Pulse Pulse Resp BP BP Pulse Ox 04/08/22 11:49 37.1 C 68 17 95/56 L 95 04/08/22 07:59 37.2 C 73 18 101/60 93 04/08/22 07:30 66 04/08/22 03:05 36.9 C 62 18 103/64 91 O2 Del Method 04/08/22 11:49 Room Air 04/08/22 07:59 Room Air 04/08/22 07:30 04/08/22 03:05 Room Air (1) Cirrhosis Hepatic cirrhosis type: alcoholic cirrhosis
[2022-04-08] MEDS: MoRPHine SULFATE IR 15 MG TAB (IMMEDIATE RELEASE) PO PRN ×2 (14:57→20:02)
[2022-04-08] MEDS: AMPICILLIN/SULBACTAM SOD 3,000 MG in 0.9 % SODIUM CHLORIDE 100 ML IV SCH ×2 (14:58→20:02)
[2022-04-08] MEDS: ONDANSETRON INJ 2 MG/ML 2 ML VIAL IV PRN ×2 (15:42→22:09)
--- NOTE | 2022-04-08 15:59 | Ultrasound Report ---
PROCEDURE: Ultrasound-Guided Diagnostic/Therapeutic Paracentesis CLINICAL HISTORY: ascites MEDICATIONS: Subcutaneous Lidocaine 2%. PROCEDURE: The procedure itself was explained to the patient carefully. The patient was brought into the IR suite and a time-out was performed. The patient was positioned supine on the table. Preliminar y ultrasound of the abdomen was performed to determine a safe needle entry site. The most appropriat e approach for safe needle entry site was planned and the site for puncture was marked. The right low er quadrant was prepped and draped in the usual sterile fashion. Subcutaneous 2% lidocaine was used f or local anesthesia along the expected needle tract. Under ultrasound-guidance, an 5 [place] Yueh needle-sheath was inserted carefully into the peritoneal space towards the abdominal ascites fluid collection. The needle was removed and the sheath was conn ected to tubing and a vacuum suction device. A total of 2000 and cc of serous ascites was aspirated. The sheath was removed and a sterile dressing applied. The patient tolerated the procedure well witho ut immediate complications. Sample of ascites was sent for analysis. IMPRESSION: Ultrasound-guided diagnostic/therapeutic paracentesis. Electronically signed by: Roger Flores M.D. 04/08/2022 3:57 PM
[2022-04-08 16:05] LABS: Albumin Peritoneal Fluid < 1.5 gm/dl; Amylase Peritoneal Fluid < 10 U/L
[2022-04-08 16:11] LABS: Glucose Peritoneal Fluid 108 mg/dl; LDH Peritoneal Fluid 36 U/L; Lipase Peritoneal Fluid < 3 U/L; Total Protein Peritoneal Fluid < 3.0 gm/dl
[2022-04-08 17:09] LABS: Appearance Peritoneal Fluid Clear; Color Peritoneal Fluid Pale Yellow; Lymphocytes, Fluid 21 %; Mono,Macrophage,Mesothelial 62 %; Neutrophils, Fluid 17 %; RBC Peritoneal Fluid Auto < 2000 /uL; WBC Peritoneal Fluid Auto 143 /ul (0-300)
[2022-04-08 17:25] LABS: Hematocrit (blood only) 23.6 % (37.0-47.0); Hemoglobin 7.2 g/dl (12.0-16.0)
[2022-04-08] MEDS: rOPINIRole HCL 0.25 MG TABLET PO SCH (19:53)
[2022-04-08] MEDS: GABAPENTIN 100 MG CAP PO SCH (19:53)
[2022-04-08] MEDS: traZODone HCL 50 MG TAB PO SCH (19:54)
[2022-04-08] MEDS: GABAPENTIN 600 MG TAB PO SCH (19:54)
[2022-04-08] MEDS: hydrOXYzine HCl 25 MG TAB PO PRN (21:24)
[2022-04-08 22:47] LABS: Hematocrit (blood only) 23.9 % (37.0-47.0); Hemoglobin 7.4 g/dl (12.0-16.0)
[2022-04-09] MEDS: AMPICILLIN/SULBACTAM SOD 3,000 MG in 0.9 % SODIUM CHLORIDE 100 ML IV SCH ×4 (01:35→20:30)
[2022-04-09] MEDS: MoRPHine SULFATE IR 15 MG TAB (IMMEDIATE RELEASE) PO PRN ×5 (01:36→20:30)
[2022-04-09 07:20] LABS: Hematocrit (blood only) 25.1 % (37.0-47.0); Hemoglobin 7.6 g/dl (12.0-16.0)
[2022-04-09] MEDS: THIAMINE HCL 100 MG TAB PO SCH (08:27)
[2022-04-09] MEDS: PANCREAZE (LIPASE 10,500U) CAP PO SCH ×4 (08:27→20:29)
[2022-04-09] MEDS: COLESTIPOL HCL 1 GM TAB PO SCH ×2 (08:27→20:29)
[2022-04-09] MEDS: PANTOprazole 40 MG in SYRINGE 0 ML IV SCH ×2 (08:27→20:30)
[2022-04-09] MEDS: FUROSEMIDE 40 MG TAB PO SCH ×2 (08:27→20:30)
[2022-04-09] MEDS: rifAXIMin 550 MG TABLET PO SCH ×2 (08:27→20:29)
[2022-04-09] MEDS: MIDODRINE HCL 2.5 MG TAB PO SCH ×3 (08:28→17:26)
[2022-04-09] MEDS: CITALOPRAM 20 MG TAB PO SCH (08:28)
[2022-04-09] MEDS: FOLIC ACID 1 MG TAB PO SCH (08:28)
[2022-04-09] MEDS: SPIRONOLACTONE 100 MG TAB PO SCH (08:28)
[2022-04-09] MEDS: LACTULOSE SYRUP 20 GM/30 ML UDC PO SCH ×3 (08:29→20:30)
[2022-04-09 08:50] LABS: Adenovirus F 40/41 PCR Not Detected (NotDetected); Astrovirus PCR Not Detected (NotDetected); Campylobacter PCR Not Detected (NotDetected); Cryptosporidium PCR Not Detected (NotDetected); Cyclospora cayetanensis PCR Not Detected (NotDetected); Entamoeba histolytica PCR Not Detected (NotDetected); Enteroaggregative E.coli(EAEC) Not Detected (NotDetected); Enteropathogenic E.coli (EPEC) Not Detected (NotDetected); Enterotoxigenic E.coli (ETEC) Not Detected (NotDetected); Giardia lamblia PCR Not Detected (NotDetected); Norovirus GI/GII PCR Not Detected (NotDetected); Plesiomonas shigelloides PCR Not Detected (NotDetected); Rotavirus A PCR Not Detected (NotDetected); Salmonella PCR Not Detected (NotDetected); Sapovirus PCR Not Detected (NotDetected); Shiga-like Toxin E.coli (STEC) Not Detected (NotDetected); Shigella/Enteroinvasive E.coli Not Detected (NotDetected); Vibrio cholerae PCR Not Detected (NotDetected); Vibrio species PCR Not Detected (NotDetected); Yersinia enterocolitica PCR Not Detected (NotDetected)
[2022-04-09] MEDS: ONDANSETRON INJ 2 MG/ML 2 ML VIAL IV PRN (09:59)
--- NOTE | 2022-04-09 16:21 | Hospitalist Progress Note ---
Date of Service April 09, 2022 Assessment & Plan (1) Cirrhosis: Plan 57 y/o F with PMH of alcohol abuse, end-stage liver disease, esophageal varices, portal hypertension, hypothyroidism, peripheral neuropathy, history of convulsions, depression, anxiety, RLS, history of narcotic abusepresented to ER 04/07 with complaint of diffuse abdominal cramping and melena x 5 days. States today vomited red blood x1. She is being managed for the following: GIB (gastrointestinal bleeding): Possible colitis: will use unasyn. In ER vitals stable. H&H: 9.2/. Hgb was 8.7 on 03/06/2022. PLT: 137, INR 1.2. Labs around baseline Admitting CT ABD/PELVIS: 1. Diffusely thickened large and small bowel most pronounced at the gastrojejunostomy site. This has progressed in the interval. This could be due to the patient's diffuse edematous state or a nonspecific enterocolitis. 2. No evidence for bowel obstruction. 3. Cirrhosis with splenomegaly. 4. Large volume ascites persists. 5. Additional findings as described above. Stool culture, C. difficile ----> negative. Admitting Blood cultures: f/u s/p paracentesis 04/08 - 2L Out, analysis reviewed, f/u 04/08 culture - pending. GI evaled, ppi iv bid, clears and adat. No endoscopic eval as for now unless pt starts dropping Hb again/bleeding again. Palliative evaled, plan for discharge to home w/ hospice after paracentesis. Pain Mx. ---Hospice declined as doesn't qualify for hospice Pt will need to f/u w/ palliative as OP on DC. Pain and SOB improving after paracentesis. Reports tolerating diet and bowel movement with less blood Monitor HnH and transfuse for Hb < 7 or symptomatic anemia. c/w unasyn 04/08. c/w PPI IV BID, Full liq diet, ADAT. f/u GI as OP. Cirrhosis: Esophageal varices: Portal hypertensive gastropathy: Pancytopenia: Plan: H/O end-stage liver disease, esophageal varices, portal hypertension, gastric varices s/p embolization Continue rifaximin, lactulose, lasix, spironolactone. Abdominal ascites: Recent [facility] hospitalization 03/02/2022-03/07/2022 and had abdominal paracentesis x 2 with removal of 4 L Abdominal ascites secondary to decompensated alcoholic cirrhosis R/O SBP Diagnostic/therapeutic paracentesis - awaiting culture. f/u GI as OP. Acute hypokalemia: acute on chronic hypokalemia; monitor and replete Chronic pain: h/o narcotic abuse; not on chronic opioids currently. Alcohol abuse: History of alcohol abuse, reports no EtOH intake in the last month, counseled on need for continued alcohol cessation. Continue thiamine and folic acid. DVT Prophylaxis: SCDs due to bleeding DNR/DNI as per discussion with pt Follows with Dr Moya for routine care Admission and Anticipated Discharge Date Admission Date: April 07, 2022 Subjective Patient seen and examined at bedside as a follow-up of GI bleed and ascites in the setting of/history of end-stage liver disease, pancytopenia, portal hypertensive gastropathy, esophageal varices. Patient was lying in bed, on room air, NAD, reports feeling better and reports pain being under control. Reports tolerating diet, reports having bowel movement with less blood now than before. Overall she reports moving in a positive direction. Reports improvement in her shortness of breath after paracentesis. Reports that she would undergo EGD if that is what doctors recommend, discussed with GI regarding her change of mind, since her hemoglobin is stable and she has been able to tolerate diet with no further blood in the stool, no plan for scope at this time. She needs to follow-up GI as an outpatient for further evaluation. Physical Exam Physical Exam: GENERAL: Alert and oriented x3. NAD, on RA. Chronically ill/frail/weak/lean and thin appearing. Appears older than stated age. HEENT: No pallor, no icterus. Pupils equal, round and reactive to light. Oral mucosa moist. NECK: No JVD, no neck masses. HEART: S1 and S2 heard. Regular rate and rhythm. No murmur, no gallop. RESPIRATORY SYSTEM: Normal AP diameter. No accessory muscle use. No wheezing, no crackles. ABDOMEN: Soft, bowel sounds present, has subcu pain pump/no ss of infection, no distention. non tender CENTRAL NERVOUS SYSTEM: No facial droop. Speech is clear. Obeys simple commands. Moves extremities. EXTREMITIES: No edema, no erythema seen. Results & Data Results & Data ([facility]) Vital Signs (Past 12 Hours) Vital Signs Temp Pulse Pulse Resp BP Pulse Ox O2 Del Method 04/09/22 15:56 61 04/09/22 13:32 Room Air 04/09/22 12:00 36.4 C L 71 16 100/67 90 Room Air 04/09/22 09:57 53 L 04/09/22 08:00 36.7 C 68 16 83/44 L 95 Room Air (1) Cirrhosis Hepatic cirrhosis type: alcoholic cirrhosis
[2022-04-09] MEDS: rOPINIRole HCL 0.25 MG TABLET PO SCH (20:29)
[2022-04-09] MEDS: GABAPENTIN 100 MG CAP PO SCH (20:29)
[2022-04-09] MEDS: traZODone HCL 50 MG TAB PO SCH (20:29)
[2022-04-09] MEDS: GABAPENTIN 600 MG TAB PO SCH (20:29)
[2022-04-10] MEDS: AMPICILLIN/SULBACTAM SOD 3,000 MG in 0.9 % SODIUM CHLORIDE 100 ML IV SCH ×4 (02:05→23:35)
[2022-04-10] MEDS: MoRPHine SULFATE IR 15 MG TAB (IMMEDIATE RELEASE) PO PRN ×4 (07:06→23:36)
[2022-04-10 07:40] LABS: Hematocrit (blood only) 26.4 % (37.0-47.0); Mean Corpuscular Hemoglobin 24.8 pg (25.0-34.0); Mean Corpuscular Hgb Conc 30.3 g/dL (32.0-36.0); Platelet Count 120 K/uL (130-400); RDW Coefficient of Variation 22.5 % (11.5-14.5); RDW Standard Deviation 67.2 fL (36.4-46.3); Red Blood Count 3.22 M/uL (4.20-5.40); White Blood Count 4.17 K/ul (4.8-10.8)
[2022-04-10 07:48] LABS: Calcium 7.9 mg/dl (8.5-10.1); Magnesium 1.3 mg/dl (1.7-2.4); Potassium 3.1 mmol/L (3.5-5.1)
[2022-04-10 07:53] LABS: BUN Creatinine Ratio 9.5 (10-20); Creatinine Clr Calc Pharmacy 86.7 ml/min; Est GFR (African American) 114.6 ml/min; Est GFR (Non-African American) 98.9 ml/min; Phosphorus 3.8 mg/dl (2.5-4.9)
[2022-04-10] MEDS: PANTOprazole 40 MG in SYRINGE 0 ML IV SCH (07:59)
[2022-04-10] MEDS: CITALOPRAM 20 MG TAB PO SCH (08:00)
[2022-04-10] MEDS: FOLIC ACID 1 MG TAB PO SCH (08:00)
[2022-04-10] MEDS: FUROSEMIDE 40 MG TAB PO SCH ×2 (08:00→23:35)
[2022-04-10] MEDS: THIAMINE HCL 100 MG TAB PO SCH (08:00)
[2022-04-10] MEDS: SPIRONOLACTONE 100 MG TAB PO SCH (08:00)
[2022-04-10] MEDS: PANCREAZE (LIPASE 10,500U) CAP PO SCH ×4 (08:00→22:27)
[2022-04-10] MEDS: COLESTIPOL HCL 1 GM TAB PO SCH ×2 (08:00→22:27)
[2022-04-10] MEDS: MIDODRINE HCL 2.5 MG TAB PO SCH ×3 (08:00→17:43)
[2022-04-10] MEDS: rifAXIMin 550 MG TABLET PO SCH ×2 (08:00→22:27)
[2022-04-10] MEDS: LACTULOSE SYRUP 20 GM/30 ML UDC PO SCH ×3 (08:01→22:25)
[2022-04-10] MEDS: POTASSIUM CHLORIDE CRTAB 20 MEQ TABCR PO SCH ×2 (08:18→10:33)
[2022-04-10] MEDS: MAGNESIUM SULFATE / D5W 1 GM/100 ML BAG IV SCH ×3 (08:52→12:47)
[2022-04-10] MEDS: hydrOXYzine HCl 25 MG TAB PO PRN (12:08)
--- NOTE | 2022-04-10 16:11 | Hospitalist Progress Note ---
Date of Service April 10, 2022 Assessment & Plan (1) Cirrhosis: Plan 57 y/o F with PMH of alcohol abuse, end-stage liver disease, esophageal varices, portal hypertension, hypothyroidism, peripheral neuropathy, history of convulsions, depression, anxiety, RLS, history of narcotic abusepresented to ER 04/07 with complaint of diffuse abdominal cramping and melena x 5 days. States today vomited red blood x1. She is being managed for the following: GIB (gastrointestinal bleeding): Possible colitis: will use unasyn. In ER vitals stable. H&H: 9.2/. Hgb was 8.7 on 03/06/2022. PLT: 137, INR 1.2. Labs around baseline Admitting CT ABD/PELVIS: 1. Diffusely thickened large and small bowel most pronounced at the gastrojejunostomy site. This has progressed in the interval. This could be due to the patient's diffuse edematous state or a nonspecific enterocolitis. 2. No evidence for bowel obstruction. 3. Cirrhosis with splenomegaly. 4. Large volume ascites persists. 5. Additional findings as described above. Stool culture, C. difficile ----> negative. Admitting Blood cultures: f/u s/p paracentesis 04/08 - 2L Out, analysis reviewed, f/u 04/08 culture - pending. GI evaled, ppi bid. No endoscopic eval as for now unless pt starts dropping Hb again/bleeding again. Palliative evaled, plan for discharge to home w/ hospice after paracentesis. Pain Mx. ---Hospice declined as doesn't qualify for hospice Pt will need to f/u w/ palliative as OP on DC. Pain and SOB improving after paracentesis. Reports tolerating diet and bowel movement with no blood now Monitor HnH and transfuse for Hb < 7 or symptomatic anemia. c/w unasyn 04/08. c/w PPI IV BID to po from today, on soft diet. f/u GI as OP. Cirrhosis: Esophageal varices: Portal hypertensive gastropathy: Pancytopenia: Plan: H/O end-stage liver disease, esophageal varices, portal hypertension, gastric varices s/p embolization Continue rifaximin, lactulose, lasix, spironolactone. Abdominal ascites: Recent [facility] hospitalization 03/02/2022-03/07/2022 and had abdominal paracentesis x 2 with removal of 4 L Abdominal ascites secondary to decompensated alcoholic cirrhosis R/O SBP Diagnostic/therapeutic paracentesis - awaiting culture. f/u GI as OP. Acute hypokalemia: acute on chronic hypokalemia; monitor and replete Chronic pain: h/o narcotic abuse; not on chronic opioids currently. Alcohol abuse: History of alcohol abuse, reports no EtOH intake in the last month, counseled on need for continued alcohol cessation. Continue thiamine and folic acid. DVT Prophylaxis: SCDs due to bleeding DNR/DNI as per discussion with pt Follows with Dr Moya for routine care Dispo; plan to dc today but her son wouldn't have time to pick her up today; communicated w/ CM who was working to get her free transport, will continue to follow and will dc when able. medically stable as of now unless no new issues arise. approx 55 minutes spent reviewing/writing/communicating plan to pt; coordinating dc w/ CM and RN which finally didn't happen. Admission and Anticipated Discharge Date Admission Date: April 10, 2022 Subjective Patient seen and examined at bedside as a follow-up of GI bleed and ascites in the setting of/history of end-stage liver disease, pancytopenia, portal hypertensive gastropathy, esophageal varices. Patient was lying in bed, on room air, NAD, reports feeling better/back to baseline and reports pain being under control. Reports tolerating advancement of diet, reports having bowel movement with no blood now. Reports improvement in her shortness of breath after paracentesis. Physical Exam Physical Exam: GENERAL: Alert and oriented x3. NAD, on RA. Chronically ill/frail/weak/lean and thin appearing. Appears older than stated age. HEENT: No pallor, no icterus. Pupils equal, round and reactive to light. Oral mucosa moist. NECK: No JVD, no neck masses. HEART: S1 and S2 heard. Regular rate and rhythm. No murmur, no gallop. RESPIRATORY SYSTEM: Normal AP diameter. No accessory muscle use. No wheezing, no crackles. ABDOMEN: Soft, bowel sounds present, has subcu pain pump/no ss of infection, no distention. non tender CENTRAL NERVOUS SYSTEM: No facial droop. Speech is clear. Obeys simple commands. Moves extremities. EXTREMITIES: No edema, no erythema seen. Results & Data Results & Data ([facility]) Vital Signs (Past 12 Hours) Vital Signs Temp Pulse Pulse Resp BP BP Pulse Ox 04/10/22 11:55 36.9 C 78 20 95/49 L 97 04/10/22 08:00 37.0 C 80 16 113/57 L 98 04/10/22 07:30 61 O2 Del Method 04/10/22 11:55 Room Air 04/10/22 08:00 Room Air 04/10/22 07:30 (1) Cirrhosis Hepatic cirrhosis type: alcoholic cirrhosis
[2022-04-10] MEDS ORDERED: MIDODRINE HCL 2.5 MG TAB PO STA (19:41)
[2022-04-10] MEDS ORDERED: ALBUMIN 25% 100 mL 25 GM/100 ML VIAL IV ONE (19:41)
[2022-04-10] MEDS ORDERED: NON-FORMULARY MEDICATION PRN (19:55)
[2022-04-10 20:32] LABS: BUN Creatinine Ratio 16.7 (10-20); Calcium 7.9 mg/dl (8.5-10.1); Creatinine Clr Calc Pharmacy 101.1 ml/min; Est GFR (African American) 120.6 ml/min; Potassium 4.2 mmol/L (3.5-5.1)
[2022-04-10] MEDS ORDERED: PANTOprazole 40 MG TAB PO SCH (21:00)
[2022-04-10] MEDS ORDERED: WITCH HAZEL PRN (21:15)
[2022-04-10] MEDS: GABAPENTIN 600 MG TAB PO SCH (22:28)
[2022-04-10] MEDS: traZODone HCL 50 MG TAB PO SCH (22:28)
[2022-04-10] MEDS: GABAPENTIN 100 MG CAP PO SCH (22:28)
[2022-04-10] MEDS: rOPINIRole HCL 0.25 MG TABLET PO SCH (22:28)
[2022-04-11] MEDS: hydrOXYzine HCl 25 MG TAB PO PRN ×2 (01:00→20:03)
[2022-04-11] MEDS: AMPICILLIN/SULBACTAM SOD 3,000 MG in 0.9 % SODIUM CHLORIDE 100 ML IV SCH ×2 (03:28→07:58)
[2022-04-11] MEDS: MoRPHine SULFATE IR 15 MG TAB (IMMEDIATE RELEASE) PO PRN ×3 (03:40→20:03)
[2022-04-11 07:44] LABS: Hematocrit (blood only) 20.5 % (37.0-47.0); Hemoglobin 6.2 g/dl (12.0-16.0); Mean Corpuscular Hemoglobin 24.3 pg (25.0-34.0); Mean Corpuscular Hgb Conc 30.2 g/dL (32.0-36.0); Mean Corpuscular Volume 80.4 fL (80.0-100.0); Mean Platelet Volume 10.8 fL (9.4-12.4); Platelet Count 68 K/uL (130-400); RDW Coefficient of Variation 22.5 % (11.5-14.5); RDW Standard Deviation 65.5 fL (36.4-46.3); Red Blood Count 2.55 M/uL (4.20-5.40); White Blood Count 1.35 K/ul (4.8-10.8)
[2022-04-11] MEDS ORDERED: SODIUM CHLORIDE 0.9% 250 ML IV PRN (07:53)
[2022-04-11] MEDS: FUROSEMIDE 40 MG TAB PO SCH ×2 (08:00→20:06)
[2022-04-11] MEDS: THIAMINE HCL 100 MG TAB PO SCH (08:00)
[2022-04-11] MEDS: SPIRONOLACTONE 100 MG TAB PO SCH (08:00)
[2022-04-11] MEDS: MIDODRINE HCL 2.5 MG TAB PO SCH ×3 (08:00→16:50)
[2022-04-11] MEDS: COLESTIPOL HCL 1 GM TAB PO SCH ×2 (08:01→20:04)
[2022-04-11] MEDS: PANCREAZE (LIPASE 10,500U) CAP PO SCH ×4 (08:01→20:07)
[2022-04-11] MEDS: CITALOPRAM 20 MG TAB PO SCH (08:01)
[2022-04-11] MEDS: LACTULOSE SYRUP 20 GM/30 ML UDC PO SCH ×3 (08:01→20:07)
[2022-04-11] MEDS: FOLIC ACID 1 MG TAB PO SCH (08:01)
[2022-04-11] MEDS: rifAXIMin 550 MG TABLET PO SCH ×2 (08:01→20:07)
[2022-04-11] MEDS ORDERED: ACETAMINOPHEN 1,000 MG/100 ML VIAL IV STA (08:04)
[2022-04-11 08:16] LABS: BUN Creatinine Ratio 17.5 (10-20); Calcium 7.8 mg/dl (8.5-10.1); Creatinine Clr Calc Pharmacy 136.7 ml/min; Est GFR (African American) 133.1 ml/min; Est GFR (Non-African American) 114.8 ml/min; Magnesium 1.8 mg/dl (1.7-2.4); Potassium 3.8 mmol/L (3.5-5.1)
[2022-04-11] MEDS: PANTOprazole 40 MG in SYRINGE 0 ML IV SCH ×2 (08:48→20:07)
[2022-04-11] MEDS: SODIUM CHLORIDE 0.9% 1000ML 1,000 ML IV SCH (09:03)
--- NOTE | 2022-04-11 13:38 | Gastroenterology Progress Note ---
Date of Service April 11, 2022 Assessment & Plan (1) Alcoholism with alcohol dependence: (2) Cirrhosis: (3) Abdominal pain: (4) Anemia: Plan: No overt GI bleeding Recommend NPO after midnight Will defer to Primary GI team, Timur as to whether patient needs any further testing Continue current therapy and supportive care Discussed with Dr. Dinh, contact me if any clinical changes Admission and Anticipated Discharge Date Admission Date: April 10, 2022 Subjective I was asked to see Siena Starkers today in followup secondary to decreased H/H. She has an extensive PMHx and was admitted for a single episode of Hematemesis on 04/07/2022. She was seen by Timur LIRIANO, and they did not feel that she needed any endoscopic workup at that time. Overnight, she was noted to have a decrease in her Hgb from 7 to 6.2. She has not had any overt GI bleeding noted. She states that she does have some slight abdominal pain, described as generalized, chronic and achy, alleviated by pain medications, "when I can get them." She denies any dysphagia, odynophagia, hematemesis, melena or hematochezia. She has no further complaints. Review of Systems Review of Systems: All systems reviewed & are unremarkable except as noted in Subjective Physical Exam Constitutional: + ill appearing (Chronic); no acute distress Respiratory: normal respiratory effort; no respiratory distress and no labored breathing Gastrointestinal (Abdomen): Inspection/Auscultation: abdomen normal to inspection and normal bowel sounds Percussion/Palpation: + abdomen tender (generalized, mild) and abdomen soft; no guarding and abdomen not rigid Psychiatric: A+Ox3, euthymic affect Results & Data Results & Data ([facility]) Vital Signs (Past 12 Hours) Vital Signs Temp Pulse Pulse Resp BP BP BP 04/11/22 13:05 36.8 C 58 L 19 124/73 04/11/22 12:35 36.8 C 61 18 99/58 L 04/11/22 12:40 36.8 C 61 16 99/58 L 04/11/22 12:20 36.8 C 68 18 103/63 04/11/22 12:04 36.8 C 76 18 99/54 L 04/11/22 11:36 36.8 C 78 18 111/55 L 02/26/23 07:35 36.9 C 67 16 95/55 L 04/11/22 07:14 58 L 04/11/22 06:00 87/44 L 04/11/22 04:52 04/11/22 04:36 73 16 84/51 L 04/11/22 03:11 36.8 C 75 16 94/56 L Pulse Ox O2 Del Method O2 Flow Rate 04/11/22 13:05 97 04/11/22 12:35 95 04/11/22 12:40 95 Room Air 04/11/22 12:20 97 0 04/11/22 12:04 100 0 04/11/22 11:36 99 Room Air 04/11/22 07:35 96 Nasal Cannula 2 04/11/22 07:14 04/11/22 06:00 04/11/22 04:52 98 Nasal Cannula 2 04/11/22 04:36 88 L Room Air 04/11/22 03:11 94 Room Air PG Care Time/CCT Total # of Minutes Spent Total Time Spent with Patient: Total time spent is greater than 50% in coordination of care (as documented) at patient's floor/unit and/or counseling patient: Coding Level of Care Code 96357 SUB INP/OBS CARE 3/50MIN Diagnoses Alcoholism with alcohol dependence F10.230 Complication of substance-induced condition: uncomplicated Substance use status: in withdrawal Cirrhosis K74.60 Hepatic cirrhosis type: alcoholic cirrhosis Abdominal pain R10.9 Anemia D64.9 Anemia type: unspecified type (1) Alcoholism with alcohol dependence Complication of substance-induced condition: uncomplicated Substance use status: in withdrawal Qualified Code(s): F10.230 - Alcohol dependence with withdrawal, uncomplicated (2) Cirrhosis Hepatic cirrhosis type: alcoholic cirrhosis (4) Anemia Anemia type: unspecified type Qualified Code(s): D64.9 - Anemia, unspecified
--- NOTE | 2022-04-11 15:51 | Hospitalist Progress Note ---
Date of Service April 11, 2022 Assessment & Plan (1) Cirrhosis: Plan 57 y/o F with PMH of alcohol abuse, end-stage liver disease, esophageal varices, portal hypertension, hypothyroidism, peripheral neuropathy, history of convulsions, depression, anxiety, RLS, history of narcotic abusepresented to ER 04/07 with complaint of diffuse abdominal cramping and melena x 5 days. States today vomited red blood x1. She is being managed for the following: GIB (gastrointestinal bleeding): Possible colitis: will use unasyn. In ER vitals stable. H&H: 9.2/. Hgb was 8.7 on 03/06/2022. PLT: 137, INR 1.2. Labs around baseline Admitting CT ABD/PELVIS: 1. Diffusely thickened large and small bowel most pronounced at the gastrojejunostomy site. This has progressed in the interval. This could be due to the patient's diffuse edematous state or a nonspecific enterocolitis. 2. No evidence for bowel obstruction. 3. Cirrhosis with splenomegaly. 4. Large volume ascites persists. 5. Additional findings as described above. Stool culture, C. difficile ----> negative. Admitting Blood cultures: f/u s/p paracentesis 04/08 - 2L Out, analysis reviewed, f/u 04/08 culture - pending. GI evaled, ppi bid. No endoscopic eval as for now unless pt starts dropping Hb again/bleeding again. --> Hb dropped from 8 yesterday to 6.2 today; PPI to IV/PRBC x2/IVF/NPO/dw GI - plan for eval in AM. Palliative evaled, plan for discharge to home w/ hospice after paracentesis. Pain Mx. ---Hospice declined as doesn't qualify for hospice Pt will need to f/u w/ palliative as OP on DC. Pain and SOB improving after paracentesis. Monitor HnH and transfuse for Hb < 7 or symptomatic anemia. c/w unasyn 04/08 -- Augmentin 04/11. c/w PPI IV, IVF, NPO, GI eval in AM, f/u GI as OP. Cirrhosis: Esophageal varices: Portal hypertensive gastropathy: Pancytopenia: Plan: H/O end-stage liver disease, esophageal varices, portal hypertension, gastric varices s/p embolization Continue rifaximin, lactulose, lasix, spironolactone - transiently held in AM due to low BP, will resume lasix and aldactone. Abdominal ascites: Recent [facility] hospitalization 03/02/2022-03/07/2022 and had abdominal paracentesis x 2 with removal of 4 L Abdominal ascites secondary to decompensated alcoholic cirrhosis R/O SBP Diagnostic/therapeutic paracentesis - awaiting culture. f/u GI as OP. Acute hypokalemia: acute on chronic hypokalemia; monitor and replete Chronic pain: h/o narcotic abuse; not on chronic opioids currently. Alcohol abuse: History of alcohol abuse, reports no EtOH intake in the last month, counseled on need for continued alcohol cessation. Continue thiamine and folic acid. DVT Prophylaxis: SCDs due to bleeding DNR/DNI as per discussion with pt Follows with Dr Moya for routine care Dispo: pending GI clearance and Hb stabilization. Admission and Anticipated Discharge Date Admission Date: April 10, 2022 Subjective Patient seen and examined at bedside as a follow-up of GI bleed and ascites in the setting of/history of end-stage liver disease, pancytopenia, portal hypertensive gastropathy, esophageal varices. Patient was lying in bed, on room air, NAD, had Hb drop from 8 yesterday to 6.2 today, reports belly pain, diet was made npo/PPI changed to iv/blood transfusion consent obtained and 2 units tranfusion ordered/BP lowering meds held in am d/t borderline BP/NSS IVF started/GI made aware and d/w GI and plan was to continue current Rx/make npo overnight for GI to eval in AM. Pt had mutliple small bowel movements but RN/aid not able to see as pt flushes them, pt made aware to not flush so that it can be monitored for GI bleed. Pt w/ no chest pain/palpitation/nause or vomiting. Continues to report improvement in her shortness of breath after paracentesis. Physical Exam Physical Exam: GENERAL: Alert and oriented x3. NAD, on RA. Chronically ill/frail/weak/lean and thin appearing. Appears older than stated age. HEENT: No pallor, no icterus. Pupils equal, round and reactive to light. Oral mucosa moist. NECK: No JVD, no neck masses. HEART: S1 and S2 heard. Regular rate and rhythm. No murmur, no gallop. RESPIRATORY SYSTEM: Normal AP diameter. No accessory muscle use. No wheezing, no crackles. ABDOMEN: Soft, bowel sounds present, has subcu pain pump/no ss of infection, no distention. non tender CENTRAL NERVOUS SYSTEM: No facial droop. Speech is clear. Obeys simple commands. Moves extremities. EXTREMITIES: No edema, no erythema seen. Results & Data Results & Data ([facility]) Vital Signs (Past 12 Hours) Vital Signs Temp Pulse Pulse Resp BP BP BP 04/11/22 15:27 36.9 C 56 L 16 115/68 04/11/22 15:05 36.9 C 56 L 16 115/68 04/11/22 15:09 53 L 04/11/22 14:55 37.0 C 56 L 19 117/66 04/11/22 14:05 37.0 C 60 18 111/65 04/11/22 13:05 36.8 C 58 L 19 124/73 04/11/22 12:35 36.8 C 61 18 99/58 L 04/11/22 12:40 36.8 C 61 16 99/58 L 04/11/22 12:20 36.8 C 68 18 103/63 04/11/22 12:04 36.8 C 76 18 99/54 L 04/11/22 11:36 36.8 C 78 18 111/55 L 04/11/22 07:35 36.9 C 67 16 95/55 L 04/11/22 07:14 58 L 04/11/22 06:00 87/44 L 04/11/22 04:52 04/11/22 04:36 73 16 84/51 L Pulse Ox O2 Del Method O2 Flow Rate 04/11/22 15:27 96 0 04/11/22 15:05 96 0 04/11/22 15:09 04/11/22 14:55 94 04/11/22 14:05 97 04/11/22 13:05 97 04/11/22 12:35 95 04/11/22 12:40 95 Room Air 04/11/22 12:20 97 0 04/11/22 12:04 100 0 04/11/22 11:36 99 Room Air 04/11/22 07:35 96 Nasal Cannula 2 04/11/22 07:14 04/11/22 06:00 04/11/22 04:52 98 Nasal Cannula 2 04/11/22 04:36 88 L Room Air (1) Cirrhosis Hepatic cirrhosis type: alcoholic cirrhosis
[2022-04-11] MEDS: AMOXICILLIN/CLAVULANATE 875 MG TAB PO SCH (18:24)
[2022-04-11 18:40] LABS: Hemoglobin 9.9 g/dl (12.0-16.0)
[2022-04-11] MEDS: rOPINIRole HCL 0.25 MG TABLET PO SCH (20:05)
[2022-04-11] MEDS: GABAPENTIN 100 MG CAP PO SCH (20:05)
[2022-04-11] MEDS: GABAPENTIN 600 MG TAB PO SCH (20:06)
[2022-04-11] MEDS: traZODone HCL 50 MG TAB PO SCH (20:08)
[2022-04-12] MEDS: MoRPHine SULFATE IR 15 MG TAB (IMMEDIATE RELEASE) PO PRN ×4 (02:04→21:42)
[2022-04-12 04:09] LABS: Hematocrit (blood only) 29.6 % (37.0-47.0); Hemoglobin 9.5 g/dl (12.0-16.0); Mean Corpuscular Hgb Conc 32.1 g/dL (32.0-36.0); Mean Corpuscular Volume 81.1 fL (80.0-100.0); Mean Platelet Volume 10.6 fL (9.4-12.4); Platelet Count 73 K/uL (130-400); RDW Coefficient of Variation 20.4 % (11.5-14.5); RDW Standard Deviation 59.4 fL (36.4-46.3); Red Blood Count 3.65 M/uL (4.20-5.40); White Blood Count 2.03 K/ul (4.8-10.8)
[2022-04-12 04:24] LABS: BUN Creatinine Ratio 11.4 (10-20); Calcium 7.8 mg/dl (8.5-10.1); Creatinine Clr Calc Pharmacy 124.3 ml/min; Est GFR (Non-African American) 111.3 ml/min; Magnesium 1.5 mg/dl (1.7-2.4); Phosphorus 2.8 mg/dl (2.5-4.9); Potassium 3.8 mmol/L (3.5-5.1)
[2022-04-12] MEDS: SODIUM CHLORIDE 0.9% 1000ML 1,000 ML IV SCH (04:38)
[2022-04-12] MEDS: PANCREAZE (LIPASE 10,500U) CAP PO SCH ×4 (08:24→20:13)
[2022-04-12] MEDS: LACTULOSE SYRUP 20 GM/30 ML UDC PO SCH ×3 (08:25→20:14)
[2022-04-12] MEDS: MIDODRINE HCL 2.5 MG TAB PO SCH ×3 (08:27→17:46)
[2022-04-12] MEDS: rifAXIMin 550 MG TABLET PO SCH ×2 (08:27→20:15)
[2022-04-12] MEDS: AMOXICILLIN/CLAVULANATE 875 MG TAB PO SCH ×2 (08:27→17:45)
[2022-04-12] MEDS: FUROSEMIDE 40 MG TAB PO SCH ×2 (08:27→20:15)
[2022-04-12] MEDS: PANTOprazole 40 MG in SYRINGE 0 ML IV SCH ×2 (08:27→20:13)
[2022-04-12] MEDS: CITALOPRAM 20 MG TAB PO SCH (08:28)
[2022-04-12] MEDS: SPIRONOLACTONE 100 MG TAB PO SCH (08:28)
[2022-04-12] MEDS: FOLIC ACID 1 MG TAB PO SCH (08:28)
[2022-04-12] MEDS: THIAMINE HCL 100 MG TAB PO SCH (08:28)
[2022-04-12] MEDS: MAGNESIUM SULFATE / D5W 1 GM/100 ML BAG IV SCH (11:56)
[2022-04-12] MEDS: COLESTIPOL HCL 1 GM TAB PO SCH ×2 (11:59→21:29)
[2022-04-12 12:22] LABS: Hematocrit (blood only) 32.6 % (37.0-47.0); Hemoglobin 10.7 g/dl (12.0-16.0)
--- NOTE | 2022-04-12 14:41 | Gastroenterology Progress Note ---
Date of Service April 12, 2022 Assessment & Plan (1) Hematemesis: (2) Cirrhosis: Plan EGD tomorrow morning. Full liquids today. NPO after midnight. Admission and Anticipated Discharge Date Admission Date: April 10, 2022 Supervising Physician Co-Signing Physician Notes Attg add: I interviewed and examined pt, reviewed chart and labs. Pt reports hematemesis prior to admission, stable hgb. She previously refused EGD, now stating that she wantes this done. Will plan EGD tomorrow. Subjective 57 yr old female admitted 04/07/22 for hematemesis, melena. Most recent the day of admission. BMs in the past few days green/brown. Has hx of EV most recently scoped in [facility] 2021. Last week pt preferred not to undergo endoscopy. This week asks to "have everything done." Continue w bilat upper and mid abd pain. Review of Systems Review of Systems: ROS: Gen: + weakness, No fevers, No weight loss Eyes: No eye redness, or pain, no recent vision changes Resp: No SOB, no cough Cardio: No palpitations/irregular beats, no chest pain GI: As per HPI, otherwise (-) : Denies pain on urination Skin: No jaundice, itching or new rashes Physical Exam Constitutional: WD/WN, vitals as above Eyes: PERRL, conjunctivae normal, anicteric sclerae ENMT: external ear and nose normal, oropharynx normal Neck: trachea midline, no thyromegaly Respiratory: normal respiratory effort, lungs clear to auscultation Cardiovascular: RRR, no murmur, no edema Gastrointestinal (Abdomen): soft, non distended, c/o pain with any palpation Skin: no rashes, warm and dry Neurologic: PERRL, EOMI, accommodation nl, no face palsy, no dysarthria Psychiatric: A+Ox3, euthymic affect Lymphatic: no cervical or axillary lymphadenopathy Results & Data ([facility]) Vital Signs (Past 12 Hours) Vital Signs Temp Pulse Resp BP Pulse Ox O2 Del Method 04/12/22 11:25 36.8 C 67 18 108/66 98 Room Air 04/12/22 08:27 36.5 C 75 18 91/50 L 97 Room Air Laboratory Results WBC 2, Hb 10, Hct 32, Plts 73, Na 137, K 3.8, Cl 107, CO2 27, BUN 5, Cr 0.44, glucose 77. Diagnostic Findings CTAP w IV 04/07/22: 1. Diffusely thickened large and small bowel most pronounced at the gastrojejunostomy site. This has progressed in the interval. This could be due to the patient's diffuse edematous state or a nonspecific enterocolitis. 2. No evidence for bowel obstruction. 3. Cirrhosis with splenomegaly. 4. Large volume ascites persists. 5. Additional findings as described above. US paracentesis 04/08/21: Ultrasound-guided diagnostic/therapeutic paracentesis. 2 L removed. (2) Cirrhosis Hepatic cirrhosis type: alcoholic cirrhosis
--- NOTE | 2022-04-12 14:51 | Hospitalist Progress Note ---
Date of Service April 12, 2022 Assessment & Plan (1) Cirrhosis: Plan 57 y/o F with PMH of alcohol abuse, end-stage liver disease, esophageal varices, portal hypertension, hypothyroidism, peripheral neuropathy, history of convulsions, depression, anxiety, RLS, history of narcotic abusepresented to ER 04/07 with complaint of diffuse abdominal cramping and melena x 5 days. States today vomited red blood x1. She is being managed for the following: GIB (gastrointestinal bleeding): Possible colitis: will use unasyn. In ER vitals stable. H&H: 9.2/29. Hgb was 8.7 on 03/06/2022. PLT: 137, INR 1.2. Labs around baseline Admitting CT ABD/PELVIS: 1. Diffusely thickened large and small bowel most pronounced at the gastrojejunostomy site. This has progressed in the interval. This could be due to the patient's diffuse edematous state or a nonspecific enterocolitis. 2. No evidence for bowel obstruction. 3. Cirrhosis with splenomegaly. 4. Large volume ascites persists. 5. Additional findings as described above. Stool culture, C. difficile ----> negative. Admitting Blood cultures: f/u s/p paracentesis 04/08 - 2L Out, analysis reviewed, f/u 04/08 culture - pending. GI evaled, ppi bid. Full liq diet, npo midnight, for scope in AM. Palliative evaled, plan for discharge to home w/ hospice after paracentesis. Pain Mx. ---Hospice declined as doesn't qualify for hospice Pt will need to f/u w/ palliative as OP on DC. Pain and SOB improving after paracentesis. Monitor HnH and transfuse for Hb < 7 or symptomatic anemia. c/w unasyn 04/08 -- Augmentin 04/11. c/w PPI IV, f/u GI as OP. Cirrhosis: Esophageal varices: Portal hypertensive gastropathy: Pancytopenia: Plan: H/O end-stage liver disease, esophageal varices, portal hypertension, gastric varices s/p embolization Continue rifaximin, lactulose, lasix, spironolactone. Abdominal ascites: Recent [facility] hospitalization 03/02/2022-03/07/2022 and had abdominal paracentesis x 2 with removal of 4 L Abdominal ascites secondary to decompensated alcoholic cirrhosis R/O SBP Diagnostic/therapeutic paracentesis - awaiting culture. f/u GI as OP. Acute hypokalemia: acute on chronic hypokalemia; monitor and replete Chronic pain: h/o narcotic abuse; not on chronic opioids currently. Alcohol abuse: History of alcohol abuse, reports no EtOH intake in the last month, counseled on need for continued alcohol cessation. Continue thiamine and folic acid. DVT Prophylaxis: SCDs due to bleeding DNR/DNI as per discussion with pt Follows with Dr Moya for routine care Dispo: pending GI clearance and Hb stabilization. Admission and Anticipated Discharge Date Admission Date: April 10, 2022 Subjective Patient seen and examined at bedside as a follow-up of GI bleed and ascites in the setting of/history of end-stage liver disease, pancytopenia, portal hypertensive gastropathy, esophageal varices. Patient was lying in bed, on room air, NAD, multiple small BMs - pt denies black stool or blood in stool, reports belly pain, d/w GI - Full liquid diet today/for scope mook. NPO midnight. Pt reports belly pain. Pt w/ no chest pain/palpitation/nausea or vomiting. Continues to report improvement in her shortness of breath after paracentesis. Physical Exam Physical Exam: GENERAL: Alert and oriented x3. NAD, on RA. Chronically ill/frail/weak/lean and thin appearing. Appears older than stated age. HEENT: No pallor, no icterus. Pupils equal, round and reactive to light. Oral mucosa moist. NECK: No JVD, no neck masses. HEART: S1 and S2 heard. Regular rate and rhythm. No murmur, no gallop. RESPIRATORY SYSTEM: Normal AP diameter. No accessory muscle use. No wheezing, no crackles. ABDOMEN: Soft, bowel sounds present, has subcu pain pump/no ss of infection, no distention. non tender CENTRAL NERVOUS SYSTEM: No facial droop. Speech is clear. Obeys simple commands. Moves extremities. EXTREMITIES: No edema, no erythema seen. Results & Data Results & Data ([facility]) Vital Signs (Past 12 Hours) Vital Signs Temp Pulse Resp BP Pulse Ox O2 Del Method 04/12/22 11:25 36.8 C 67 18 108/66 98 Room Air 04/12/22 08:27 36.5 C 75 18 91/50 L 97 Room Air (1) Cirrhosis Hepatic cirrhosis type: alcoholic cirrhosis
[2022-04-12 19:37] LABS: Hematocrit (blood only) 28.5 % (37.0-47.0); Hemoglobin 9.3 g/dl (12.0-16.0)
[2022-04-12] MEDS: GABAPENTIN 600 MG TAB PO SCH (20:14)
[2022-04-12] MEDS: GABAPENTIN 100 MG CAP PO SCH (20:15)
[2022-04-12] MEDS: traZODone HCL 50 MG TAB PO SCH (20:16)
[2022-04-12] MEDS: rOPINIRole HCL 0.25 MG TABLET PO SCH (20:16)
[2022-04-13] MEDS: MoRPHine SULFATE IR 15 MG TAB (IMMEDIATE RELEASE) PO PRN ×3 (06:30→18:43)
--- NOTE | 2022-04-13 08:25 | Anesthesiology Consultation ---
Date of Service April 13, 2022 Assessment & Plan Chart Review Chart Review: Acceptable Risk for Surgery Consults Requested none ASA ASA3 Proposed Anesthesia Anesthesia Type: MAC Risk / Benefits Reviewed With: PT / POA / Parent / Guardian, Accepts Plan and Informed Consent Obtained History Surgery Operation Date: 04/13/22 16:05 Proposed Procedures p Esophagogastroduodenoscopy Dr Cortez - Aure Choi MD Height/Weight Height: 5 ft 5 in Weight: 57.7 kg Allergies Allergy/AdvReac Type Severity Reaction Status Date / Time diphenhydramine Allergy Severe seizures/it Verified 04/07/22 15:13 mya/tremo rs bupropion Allergy Intermediate Palpitation Verified 04/07/22 15:13 s clarithromycin Allergy Intermediate HIVES Verified 04/07/22 15:13 aspirin Allergy Mild hives/ringing Verified 04/07/22 15:13 of ears oxaprozin Allergy Mild nausea/vomi Verified 04/07/22 15:13 ting salicylates Allergy Mild ringing in Verified 04/07/22 15:13 ears/hives Medications Home Medications Medication Instructions Recorded Confirmed Last Taken diclofenac sodium 1 % topical gel 1 ea topical BID PRN Pain 03/02/22 04/07/22 Unknown gabapentin 100 mg capsule 100 mg PO HS 03/02/22 04/07/22 02/28/22 citalopram 20 mg tablet 20 mg PO QAM #30 tabs 03/06/22 04/07/22 Unknown colestipol 1 gram tablet 2 g PO BID 30 days #120 tabs 03/06/22 04/07/22 Unknown folic acid 1 mg tablet 1 mg PO QAM #30 tabs 03/06/22 04/07/22 Unknown furosemide 40 mg tablet 40 mg PO BID #60 tabs 03/06/22 04/07/22 Unknown gabapentin 600 mg tablet 600 mg PO HS #30 tabs 03/06/22 04/07/22 Unknown hydroxyzine HCl 25 mg tablet 25 mg PO BID PRN Anxiety #30 tabs 03/06/22 04/07/22 Unknown lactulose 10 gram/15 mL oral 30 ml PO TID #946 mL 03/06/22 04/07/22 Unknown solution lidocaine 5 % topical patch 1 patch transdermal QAM PRN Pain 03/06/22 04/07/22 Unknown #15 ea [id number] 1 cap PO QID #120 caps 03/06/22 04/07/22 Unknown 36,000-114,000-180,000 unit capsule,delay rel (Creon) magnesium oxide 400 mg (241.3 mg 400 mg PO QAM #30 tabs 03/06/22 04/07/22 Unknown magnesium) tablet midodrine 5 mg tablet 5 mg PO TID #90 tabs 03/06/22 04/07/22 Unknown omeprazole 40 mg capsule,delayed 40 mg PO DAILY #30 caps 03/06/22 04/07/22 Unknown release rifaximin 550 mg tablet (Xifaxan) 550 mg PO BID #60 tabs 03/06/22 04/07/22 Unknown ropinirole 0.25 mg tablet 0.25 mg PO HS #30 tabs 03/06/22 04/07/22 Unknown spironolactone 100 mg tablet 100 mg PO DAILY #30 tabs 03/06/22 04/07/22 Unknown thiamine HCl (vitamin B1) 100 mg 100 mg PO QAM #30 tabs 03/06/22 04/07/22 Unk nown tablet trazodone 50 mg tablet 50 mg PO QPM #30 tabs 03/06/22 04/07/22 Unknown ondansetron 4 mg disintegrating 4 mg PO BID PRN nausea and 03/07/22 04/07/22 Unknown tablet vomiting #14 tabs amoxicillin 875 mg-potassium 1 tab PO BID 10 days #20 tabs 04/10/22 Unknown clavulanate 125 mg tablet lactobacillus combination no.4 3 3,000 mmu cells PO DAILY 2 weeks 04/10/22 Unknown billion cell capsule (Probiotic) #14 caps oxycodone-acetaminophen 5 mg-325 1 tab PO Q8H PRN pain (scale score 04/10/22 Unknown mg tablet (Percocet) 7-10) 3 days #9 tabs potassium chloride 10 mEq 10 meq PO DAILY #30 tabs 04/10/22 Unknown tablet,extended release(part/cryst) Active Medications Generic Name Dose Route Start Last Admin Trade Name Freq PRN Reason Stop Dose Admin Acetaminophen 650 mg 04/07/22 16:26 04/10/22 15:16 Acetaminophen 325 Mg Tab PO 05/07/22 16:25 650 mg Q4H PRN Administration Pain or Fever Amoxicillin/Clavulanate Potassium 1 tab 04/11/22 17:00 04/12/22 17:45 Amoxicillin/Clavulanate 875 Mg Tab PO 04/21/22 16:59 1 tab BIDM MICHELLE Administration Lipase/Protease/Amylase 1 cap 04/07/22 17:00 04/12/22 20:13 Pancreaze (Lipase 10,500u) Cap PO 05/07/22 16:59 1 cap QID MICHELLE Administration Citalopram Hydrobromide 20 mg 04/08/22 09:00 04/12/22 08:28 Citalopram 20 Mg Tab PO 05/08/22 08:59 20 mg QAM MICHELLE Administration Colestipol HCl 2 gm 04/07/22 21:00 04/12/22 21:29 Colestipol Hcl 1 Gm Tab PO 05/07/22 20:59 2 gm BID MICHELLE Administration Folic Acid 1 mg 04/08/22 09:00 04/12/22 08:28 Folic Acid 1 Mg Tab PO 05/08/22 08:59 1 mg QAM MICHELLE Administration Furosemide 40 mg 04/08/22 09:00 04/12/22 20:15 Furosemide 40 Mg Tab PO 05/08/22 08:59 40 mg BID MICHELLE Administration Gabapentin 100 mg 04/07/22 21:00 04/12/22 20:15 Gabapentin 100 Mg Cap PO 05/07/22 20:59 100 mg HS MICHELLE Administration Gabapentin 600 mg 04/07/22 21:00 04/12/22 20:14 Gabapentin 600 Mg Tab PO 05/07/22 20:59 600 mg HS MICHELLE Administration Hydroxyzine HCl 25 mg 04/07/22 16:26 04/11/22 20:03 Hydroxyzine Hcl 25 Mg Tab PO 05/07/22 16:25 25 mg BID PRN Administration Anxiety Pantoprazole Sodium 40 mg/ 10 mls @ 5 mls/min 04/11/22 07:55 04/12/22 20:13 Syringe IV 05/11/22 07:54 5 mls/min BID MICHELLE Administration Lactulose 20 gm 04/07/22 21:00 04/12/22 20:14 Lactulose Syrup 20 Gm/30 Ml Udc PO 05/07/22 20:59 Not Given TID MICHELLE Midodrine 5 mg 04/07/22 18:00 04/12/22 17:46 Midodrine Hcl 2.5 Mg Tab PO 05/07/22 17:59 5 mg TID@0800,1400,1800 MICHELLE Administration Morphine Sulfate 15 mg 04/11/22 08:05 04/13/22 06:30 Morphine Sulfate Ir 15 Mg Tab (Immediate Release) PO 04/22/22 12:41 15 mg Q6H PRN Administration mod to severe pain Ondansetron HCl 4 mg 04/07/22 16:26 04/09/22 09:59 Ondansetron Inj 2 Mg/Ml 2 Ml Vial IV 05/07/22 16:25 4 mg Q6H PRN Administration Nausea Rifaximin 550 mg 04/07/22 21:00 04/12/22 20:15 Rifaximin 550 Mg Tablet PO 05/07/22 20:59 550 mg BID MICHELLE Administration Ropinirole HCl 0.25 mg 04/07/22 21:00 04/12/22 20:16 Ropinirole Hcl 0.25 Mg Tablet PO 05/07/22 20:59 0.25 mg HS MICHELLE Administration Spironolactone 100 mg 04/08/22 09:00 04/12/22 08:28 Spironolactone 100 Mg Tab PO 05/08/22 08:59 100 mg DAILY MICHELLE Administration Thiamine HCl 100 mg 04/08/22 09:00 04/12/22 08:28 Thiamine Hcl 100 Mg Tab PO 05/08/22 08:59 100 mg QAM MICHELLE Administration Trazodone HCl 50 mg 04/07/22 21:00 04/12/22 20:16 Trazodone Hcl 50 Mg Tab PO 05/07/22 20:59 50 mg QPM MICHELLE Administration NPO Date Last Intake of Fluids: 04/12/22 Time Last Intake of Fluids: 18:00 Date Last Intake of Solids: 04/12/22 Time Last Intake of Solids: 18:00 Past Medical History Medical History Advanced care planning/counseling discussion Alcohol abuse hx of Alcoholism with alcohol dependence Anxiety Anxiety Chronic pain Cirrhosis Cirrhosis Degenerative disc disease Esophageal varices with banding Factitious disorder Fibromyalgia Hypomagnesemia Lumbago Multiple sclerosis Non-compliant behavior Opiate addiction HX OF AND NO PROBLEMS NOW Opiate misuse Opioid abuse Pancreatitis Pelvis fracture HX OF CRUSHED PELVIS - FROM ACCIDENT FALLING INTO DUMPSTER CHRONIC PAIN Presence of intrathecal pump PUMP IN PLACE AND NOT WORKING IT WAS TURNED OFF!!! containing morphine 0.189mg/day and fentanyl 2.52mcg/day miminimal rate per pt "it doesnt work I haven't been able to afford the medication for 3 years now"?? 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 no hematemesis since tue last week Exercise / Class Metabolic Activity III < 4 Walking/Shop/Light housework Past Family History Family History Other Aneurysm Cancer No family history of adverse response to anesthesia Stroke Past Surgical History Surgical History History of cholecystectomy History of colonoscopy History of esophagogastroduodenoscopy (EGD) History of open reduction and internal fixation (ORIF) procedure left arm/left leg--hardware in place History of Jeffy-en-Y gastric bypass History of tooth extraction all teeth removed History of total hysterectomy with bilateral salpingo-oophorectomy (BSO) Hx of laparoscopy FOR ENDOMETRIOSIS Hx of resection of small bowel DUE TO ENDOMETRIOSIS Past Anesthesia History No Hx of Anesthesia Complications and No Family Hx of Anesthesia Complications History of PONV No Hx of PONV and No Hx of Motion Sickness Social History Smoking Status: Current every day smoker tobacco type: cigarettes Do You Dip or Chew Tobacco: No Hx Alcohol Use: Yes Alcohol type: beer alcohol intake frequency: 3 or more drinks per day Hx Substance Use: No substance use type: opiates and painkillers Substance Use Type Other:: dilaudid, ativan, pt has indwelling pain pump Physical Exam Vital Signs Last Vital Signs Temp 36.4 C L 04/13/22 08:04 Pulse 71 04/13/22 08:04 Resp 16 04/13/22 08:04 BP 91/70 L 04/13/22 08:04 Pulse Ox 98 04/13/22 08:04 O2 Del Method Room Air 04/13/22 08:04 O2 Flow Rate 0 04/11/22 15:45 ENMT Mouth: + dentures and + edentulous; no TMJ abnormality Thyromental Distance: > or= 3.5 Finger Breadths Mallampati Class: II Neck normal visual inspection and trachea midline; neck extension not limited Respiratory normal respiratory effort Auscultation: lungs clear to auscultation bilaterally Cardiovascular Rate/Rhythm: regular rate and regular rhythm Heart Sounds: no murmur Musculoskeletal Spine: normal cervical ROM Extremities: full ROM of extremities Neurologic moves all extremities Psychiatric Orientation: alert and oriented x 3 Testing Laboratory Results 04/12/22 19:16 04/12/22 03:32 PT 13.0 Seconds (9.0-12.0) H 04/07/22 09:27 INR 1.2 (0.9-1.1) H 04/07/22 09:27 APTT 25.5 Seconds (21.0-31.0) 04/07/22 09:27 Blood Type A Positive 04/11/22 08:08 Antibody Screen NEGATIVE 04/11/22 08:08 04/07/22 09:27 Aerobic Blood Culture - Final Blood No growth in Aerobic bottle after 5 days. Anaerobic Blood Culture - Final No growth in Anaerobic bottle after 5 days. 04/07/22 09:27 Aerobic Blood Culture - Final Blood No growth in Aerobic bottle after 5 days. Anaerobic Blood Culture - Final 04/08/22 14:30 Acid Fast Bacilli Smear - Final Peritoneal Fluid 04/08/22 14:30 Gram Stain - Final Peritoneal Fluid Aerobic and Anaerobic Culture - Preliminary No growth to date.
--- NOTE | 2022-04-13 08:37 | History & Physical Report ---
Date of Service April 13, 2022 Assessment & Plan Admission and Anticipated Discharge Date Admission Date: April 10, 2022 History of Present Illness Primary Care Provider: Filiberto Moya ANemia, h/o hematemesis CV: RRR Resp: CTA Abd: soft A/P: EGD Allergies Allergy/AdvReac Type Severity Reaction Status Date / Time diphenhydramine Allergy Severe seizures/it Verified 04/07/22 15:13 mya/tremo rs bupropion Allergy Intermediate Palpitation Verified 04/07/22 15:13 s clarithromycin Allergy Intermediate HIVES Verified 04/07/22 15:13 aspirin Allergy Mild hives/ringing Verified 04/07/22 15:13 of ears oxaprozin Allergy Mild nausea/vomi Verified 04/07/22 15:13 ting salicylates Allergy Mild ringing in Verified 04/07/22 15:13 ears/hives Home Medications Medication Instructions Recorded Confirmed Type diclofenac sodium 1 % topical gel 1 ea topical BID PRN Pain 03/02/22 04/07/22 History gabapentin 100 mg capsule 100 mg PO HS 03/02/22 04/07/22 History citalopram 20 mg tablet 20 mg PO QAM #30 tabs 03/06/22 04/07/22 Rx colestipol 1 gram tablet 2 g PO BID 30 days #120 tabs 03/06/22 04/07/22 Rx folic acid 1 mg tablet 1 mg PO QAM #30 tabs 03/06/22 04/07/22 Rx furosemide 40 mg tablet 40 mg PO BID #60 tabs 03/06/22 04/07/22 Rx gabapentin 600 mg tablet 600 mg PO HS #30 tabs 03/06/22 04/07/22 Rx hydroxyzine HCl 25 mg tablet 25 mg PO BID PRN Anxiety #30 tabs 03/06/22 04/07/22 Rx lactulose 10 gram/15 mL oral 30 ml PO TID #946 mL 03/06/22 04/07/22 Rx solution lidocaine 5 % topical patch 1 patch transdermal QAM PRN Pain 03/06/22 04/07/22 Rx #15 ea [id number] 1 cap PO QID #120 caps 03/06/22 04/07/22 Rx 36,000-114,000-180,000 unit capsule,delay rel (Creon) magnesium oxide 400 mg (241.3 mg 400 mg PO QAM #30 tabs 03/06/22 04/07/22 Rx magnesium) tablet midodrine 5 mg tablet 5 mg PO TID #90 tabs 03/06/22 04/07/22 Rx omeprazole 40 mg capsule,delayed 40 mg PO DAILY #30 caps 03/06/22 04/07/22 Rx release rifaximin 550 mg tablet (Xifaxan) 550 mg PO BID #60 tabs 03/06/22 04/07/22 Rx ropinirole 0.25 mg tablet 0.25 mg PO HS #30 tabs 03/06/22 04/07/22 Rx spironolactone 100 mg tablet 100 mg PO DAILY #30 tabs 03/06/22 04/07/22 Rx thiamine HCl (vitamin B1) 100 mg 100 mg PO QAM #30 tabs 03/06/22 04/07/22 Rx tablet trazodone 50 mg tablet 50 mg PO QPM #30 tabs 03/06/22 04/07/22 Rx ondansetron 4 mg disintegrating 4 mg PO BID PRN nausea and 03/07/22 04/07/22 Rx tablet vomiting #14 tabs amoxicillin 875 mg-potassium 1 tab PO BID 10 days #20 tabs 04/10/22 Rx clavulanate 125 mg tablet lactobacillus combination no.4 3 3,000 mmu cells PO DAILY 2 weeks 04/10/22 Rx billion cell capsule (Probiotic) #14 caps oxycodone-acetaminophen 5 mg-325 1 tab PO Q8H PRN pain (scale score 04/10/22 Rx mg tablet (Percocet) 7-10) 3 days #9 tabs potassium chloride 10 mEq 10 meq PO DAILY #30 tabs 04/10/22 Rx tablet,extended release(part/cryst) Past Med/Surg History Medical History Advanced care planning/counseling discussion Alcohol abuse hx of Alcoholism with alcohol dependence Anxiety Anxiety Chronic pain Cirrhosis Cirrhosis Degenerative disc disease Esophageal varices with banding Factitious disorder Fibromyalgia Hypomagnesemia Lumbago Multiple sclerosis Non-compliant behavior Opiate addiction HX OF AND NO PROBLEMS NOW Opiate misuse Opioid abuse Pancreatitis Pelvis fracture HX OF CRUSHED PELVIS - FROM ACCIDENT FALLING INTO DUMPSTER CHRONIC PAIN Presence of intrathecal pump PUMP IN PLACE AND NOT WORKING IT WAS TURNED OFF!!! containing morphine 0.189mg/day and fentanyl 2.52mcg/day miminimal rate per pt "it doesnt work I haven't been able to afford the medication for 3 years now"?? 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 Surgical History History of cholecystectomy History of colonoscopy History of esophagogastroduodenoscopy (EGD) History of open reduction and internal fixation (ORIF) procedure left arm/left leg--hardware in place History of Jeffy-en-Y gastric bypass History of tooth extraction all teeth removed History of total hysterectomy with bilateral salpingo-oophorectomy (BSO) Hx of laparoscopy FOR ENDOMETRIOSIS Hx of resection of small bowel DUE TO ENDOMETRIOSIS Family History Other Aneurysm Cancer No family history of adverse response to anesthesia Stroke Social History Smoking Status: Current every day smoker Tobacco Type: Cigarettes Second Hand Exposure: Yes; Do You Dip or Chew Tobacco: No; Tobacco Cessation Education Requested by Patient: No Hx Alcohol Use: Yes Alcohol type: beer Hx Substance Use: No Preferred Language: Sami Communication Ability: Effective Jacquard Lace Weaver Required: No Beliefs That Will Affect Care: None marital status: Current Living Situation: Family Current Living Situation Comment: lives with fiance and 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 How many Children do You have: 3 Other Information That Helps Us Care for You: No Feels Safe at Home: Yes Safety Concerns: Feels Safe At This Time Assistive Devices: Walker Results & Data Results & Data ([facility]) Vital Signs (Past 12 Hours) Vital Signs Temp Pulse Pulse Resp BP Pulse Ox O2 Del Method 04/13/22 08:04 36.4 C L 71 16 91/70 L 98 Room Air 04/13/22 07:44 36.9 C 58 L 96/60 L 95 Room Air 04/13/22 07:23 59 L 04/13/22 06:02 62 107/71 04/13/22 03:15 36.8 C 63 16 94/59 L 95 Room Air 04/12/22 22:42 56 L 04/12/22 23:16 36.9 C 77 16 116/69 93 Room Air Code Status & VTE Plan VTE Prophylaxis Plan VTE Prophylaxis will be ordered: Yes
[2022-04-13] MEDS ORDERED: PROPOFOL IV EMULSION 10 MG/ML 20 ML VIAL IV ONE (09:10)
[2022-04-13] MEDS ORDERED: LIDOCAINE 2% MPF LOCAL 5 ML VIAL INFIL ONE (09:10)
--- NOTE | 2022-04-13 09:13 | History & Physical Report ---
Date of Service April 13, 2022 Assessment & Plan Admission and Anticipated Discharge Date Admission Date: April 10, 2022 History of Present Illness Primary Care Provider: Filiberto Moya Anemia CV: RRR Resp: CTA abd: soft A/P: EGD for anemia Allergies Allergy/AdvReac Type Severity Reaction Status Date / Time diphenhydramine Allergy Severe seizures/it Verified 04/07/22 15:13 mya/tremo rs bupropion Allergy Intermediate Palpitation Verified 04/07/22 15:13 s clarithromycin Allergy Intermediate HIVES Verified 04/07/22 15:13 aspirin Allergy Mild hives/ringing Verified 04/07/22 15:13 of ears oxaprozin Allergy Mild nausea/vomi Verified 04/07/22 15:13 ting salicylates Allergy Mild ringing in Verified 04/07/22 15:13 ears/hives Home Medications Medication Instructions Recorded Confirmed Type diclofenac sodium 1 % topical gel 1 ea topical BID PRN Pain 03/02/22 04/07/22 History gabapentin 100 mg capsule 100 mg PO HS 03/02/22 04/07/22 History citalopram 20 mg tablet 20 mg PO QAM #30 tabs 03/06/22 04/07/22 Rx colestipol 1 gram tablet 2 g PO BID 30 days #120 tabs 03/06/22 04/07/22 Rx folic acid 1 mg tablet 1 mg PO QAM #30 tabs 03/06/22 04/07/22 Rx furosemide 40 mg tablet 40 mg PO BID #60 tabs 03/06/22 04/07/22 Rx gabapentin 600 mg tablet 600 mg PO HS #30 tabs 03/06/22 04/07/22 Rx hydroxyzine HCl 25 mg tablet 25 mg PO BID PRN Anxiety #30 tabs 03/06/22 04/07/22 Rx lactulose 10 gram/15 mL oral 30 ml PO TID #946 mL 03/06/22 04/07/22 Rx solution lidocaine 5 % topical patch 1 patch transdermal QAM PRN Pain 03/06/22 04/07/22 Rx #15 ea [id number] 1 cap PO QID #120 caps 03/06/22 04/07/22 Rx 36,000-114,000-180,000 unit capsule,delay rel (Creon) magnesium oxide 400 mg (241.3 mg 400 mg PO QAM #30 tabs 03/06/22 04/07/22 Rx magnesium) tablet midodrine 5 mg tablet 5 mg PO TID #90 tabs 03/06/22 04/07/22 Rx omeprazole 40 mg capsule,delayed 40 mg PO DAILY #30 caps 03/06/22 04/07/22 Rx release rifaximin 550 mg tablet (Xifaxan) 550 mg PO BID #60 tabs 03/06/22 04/07/22 Rx ropinirole 0.25 mg tablet 0.25 mg PO HS #30 tabs 03/06/22 04/07/22 Rx spironolactone 100 mg tablet 100 mg PO DAILY #30 tabs 03/06/22 04/07/22 Rx thiamine HCl (vitamin B1) 100 mg 100 mg PO QAM #30 tabs 03/06/22 04/07/22 Rx tablet trazodone 50 mg tablet 50 mg PO QPM #30 tabs 03/06/22 04/07/22 Rx ondansetron 4 mg disintegrating 4 mg PO BID PRN nausea and 03/07/22 04/07/22 Rx tablet vomiting #14 tabs amoxicillin 875 mg-potassium 1 tab PO BID 10 days #20 tabs 04/10/22 Rx clavulanate 125 mg tablet lactobacillus combination no.4 3 3,000 mmu cells PO DAILY 2 weeks 04/10/22 Rx billion cell capsule (Probiotic) #14 caps oxycodone-acetaminophen 5 mg-325 1 tab PO Q8H PRN pain (scale score 04/10/22 Rx mg tablet (Percocet) 7-10) 3 days #9 tabs potassium chloride 10 mEq 10 meq PO DAILY #30 tabs 04/10/22 Rx tablet,extended release(part/cryst) Past Med/Surg History Medical History Advanced care planning/counseling discussion Alcohol abuse hx of Alcoholism with alcohol dependence Anxiety Anxiety Chronic pain Cirrhosis Cirrhosis Degenerative disc disease Esophageal varices with banding Factitious disorder Fibromyalgia Hypomagnesemia Lumbago Multiple sclerosis Non-compliant behavior Opiate addiction HX OF AND NO PROBLEMS NOW Opiate misuse Opioid abuse Pancreatitis Pelvis fracture HX OF CRUSHED PELVIS - FROM ACCIDENT FALLING INTO DUMPSTER CHRONIC PAIN Presence of intrathecal pump PUMP IN PLACE AND NOT WORKING IT WAS TURNED OFF!!! containing morphine 0.189mg/day and fentanyl 2.52mcg/day miminimal rate per pt "it doesnt work I haven't been able to afford the medication for 3 years now"?? 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 Surgical History History of cholecystectomy History of colonoscopy History of esophagogastroduodenoscopy (EGD) History of open reduction and internal fixation (ORIF) procedure left arm/left leg--hardware in place History of Jeffy-en-Y gastric bypass History of tooth extraction all teeth removed History of total hysterectomy with bilateral salpingo-oophorectomy (BSO) Hx of laparoscopy FOR ENDOMETRIOSIS Hx of resection of small bowel DUE TO ENDOMETRIOSIS Family History Other Aneurysm Cancer No family history of adverse response to anesthesia Stroke Social History Smoking Status: Current every day smoker Tobacco Type: Cigarettes Second Hand Exposure: Yes; Do You Dip or Chew Tobacco: No; Tobacco Cessation Education Requested by Patient: No Hx Alcohol Use: Yes Alcohol type: beer Hx Substance Use: No Preferred Language: Latvian Communication Ability: Effective Scrap Crusher Required: No Beliefs That Will Affect Care: None marital status: Current Living Situation: Family Current Living Situation Comment: 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 How many Children do You have: 3 Other Information That Helps Us Care for You: No Feels Safe at Home: Yes Safety Concerns: Feels Safe At This Time Assistive Devices: Walker Results & Data Results & Data ([facility]) Vital Signs (Past 12 Hours) Vital Signs Temp Pulse Pulse Resp BP Pulse Ox O2 Del Method 04/13/22 08:04 36.4 C L 71 16 91/70 L 98 Room Air 04/13/22 07:44 36.9 C 58 L 96/60 L 95 Room Air 04/13/22 07:23 59 L 04/13/22 06:02 62 107/71 04/13/22 03:15 36.8 C 63 16 94/59 L 95 Room Air 04/12/22 22:42 56 L 04/12/22 23:16 36.9 C 77 16 116/69 93 Room Air Code Status & VTE Plan VTE Prophylaxis Plan VTE Prophylaxis will be ordered: Yes
--- NOTE | 2022-04-13 10:04 | GI REPORT ---
Patient Name: Siena Saldana Procedure Date: 04/13/2022 9:15 AM Date of : 1965 Admit Type: Inpatient Age: 57 Gender: Female Attending MD: Aure Choi MD, Procedure: Upper GI endoscopy Providers: Aure Choi MD Referring MD: Salud Dinh Md Indications: Hematemesis - complicated endoscopic history, notable for EGD in 02/03 with bleeding from gastric pouch PHG vs dieulafoy failed clip, APC and hemospray, rx'd by IR; [place] [facility] [place] [place], noted to have spurting after epi injxn that resolved with placement of bands x 3; [place]05 [place] [facility] [place] evidence of [place] Medicines: See the Anesthesia note for documentation of the administered medications Complications: No immediate complications. Estimated Blood Loss: Estimated blood loss: none. Procedure: Pre-Anesthesia Assessment: - ASA Grade Assessment: II - A patient with mild systemic disease. After obtaining informed consent, the endoscope was passed under direct vision. Throughout the procedure, the patient's blood pressure, pulse, and oxygen saturations were monitored continuously. The Scope was introduced through the mouth, and advanced to the jejunum. The upper GI endoscopy was accomplished without difficulty. The patient tolerated the procedure well. Findings: There were three columns of grade 1 varices in the lower esophagus. There was no esophagitis. There was a retained clip in the body of the stomach. There was no retained blood in the stomach, and no source of bleedin was identified. There was mild portal gastropathy. There were no gastric varices seen. There was a circumferential erosion at the gastroenteric anastamosis. The gastroenteric anastamosis was stenotic, with resistance to intubation with the upper endoscope. The gastroenteric anastamosis was dilated by passage of the upper endoscope; there was self limited oozing after passage of the upper scope. The opening to the afferent loop was angulated. The mucosa of the afferent loop was normal. Recommendation: - Discharge patient to Floor. - Resume full liquids. - Consider UGIS to eval gastro-enteric anastamosis. Isabel Collins MD 04/13/2022 10:04:01 AM This report has been signed electronically. Note Initiated On: 04/13/2022 9:15 AM Number of Addenda: 0 I attest to the content of the Intraoperative Record and orders documented therein, exceptions below {[id number]}
[2022-04-13] MEDS: PANTOprazole 40 MG in SYRINGE 0 ML IV SCH (10:21)
[2022-04-13] MEDS: FOLIC ACID 1 MG TAB PO SCH (10:22)
[2022-04-13] MEDS: CITALOPRAM 20 MG TAB PO SCH (10:22)
[2022-04-13] MEDS: MIDODRINE HCL 2.5 MG TAB PO SCH ×3 (10:22→18:43)
[2022-04-13] MEDS: COLESTIPOL HCL 1 GM TAB PO SCH ×2 (10:22→21:29)
[2022-04-13] MEDS: FUROSEMIDE 40 MG TAB PO SCH ×2 (10:23→21:30)
[2022-04-13] MEDS: AMOXICILLIN/CLAVULANATE 875 MG TAB PO SCH ×2 (10:23→16:55)
[2022-04-13] MEDS: PANCREAZE (LIPASE 10,500U) CAP PO SCH ×4 (10:23→21:31)
[2022-04-13] MEDS: rifAXIMin 550 MG TABLET PO SCH ×2 (10:23→21:32)
[2022-04-13] MEDS: THIAMINE HCL 100 MG TAB PO SCH (10:23)
[2022-04-13] MEDS: SPIRONOLACTONE 100 MG TAB PO SCH (10:24)
[2022-04-13] MEDS: LACTULOSE SYRUP 20 GM/30 ML UDC PO SCH ×3 (10:24→21:31)
--- NOTE | 2022-04-13 10:42 | Anesthesiology Progress Note ---
Date of Service April 13, 2022 Anesthesia Post Procedure Vital Signs Vital Signs: Temp Pulse Pulse Resp BP BP Pulse Ox 04/13/22 10:08 57 L 20 87/49 L 97 04/13/22 09:53 63 16 90/56 L 98 04/13/22 09:38 75 16 74/42 L 98 04/13/22 08:04 36.4 C L 71 16 91/70 L 98 04/13/22 07:44 36.9 C 58 L 96/60 L 95 04/13/22 07:23 59 L 04/13/22 06:02 62 107/71 04/13/22 03:15 36.8 C 63 16 94/59 L 95 04/12/22 22:42 56 L 04/12/22 23:16 36.9 C 77 16 116/69 93 04/12/22 16:00 67 04/12/22 12:00 58 L 04/12/22 12:00 04/12/22 19:37 36.8 C 67 16 107/62 98 04/12/22 15:25 36.8 C 75 16 103/64 94 04/12/22 11:25 36.8 C 67 18 108/66 98 O2 Del Method O2 Del Method 04/13/22 10:08 Room Air 04/13/22 09:53 Room Air 04/13/22 09:38 Room Air 04/13/22 08:04 Room Air 04/13/22 07:44 Room Air 04/13/22 07:23 04/13/22 06:02 04/13/22 03:15 Room Air 04/12/22 22:42 04/12/22 23:16 Room Air 04/12/22 16:00 04/12/22 12:00 04/12/22 12:00 Room Air 04/12/22 19:37 Room Air 04/12/22 15:25 Room Air 04/12/22 11:25 Room Air Pain Intensity Abdomen: Pain Intensity: 0 Generalized: Pain Intensity: 6 Transfer of Care Handoff Completed per policy Notes Mental Status: alert / awake / arousable Patient Amnestic to Procedure: Yes Nausea / Vomiting: adequately controlled Pain: adequately controlled Airway Patency, RR, SpO2: stable & adequate BP & HR: stable & adequate Hydration State: stable & adequate Anesthetic Complications: no major complications apparent and Pt Satisfied with anesthetic care
[2022-04-13 11:20] LABS: BUN Creatinine Ratio 8.9 (10-20); Calcium 8.4 mg/dl (8.5-10.1); Creatinine Clr Calc Pharmacy 98.5 ml/min; Est GFR (African American) 119.1 ml/min; Est GFR (Non-African American) 102.8 ml/min; Magnesium 1.4 mg/dl (1.7-2.4); Potassium 3.3 mmol/L (3.5-5.1)
[2022-04-13 11:45] LABS: Hematocrit (blood only) 33.6 % (37.0-47.0); Hemoglobin 10.8 g/dl (12.0-16.0); Mean Corpuscular Hemoglobin 25.9 pg (25.0-34.0); Mean Corpuscular Hgb Conc 32.1 g/dL (32.0-36.0); Mean Corpuscular Volume 80.6 fL (80.0-100.0); Mean Platelet Volume 11.3 fL (9.4-12.4); Platelet Count 80 K/uL (130-400); RDW Coefficient of Variation 21.5 % (11.5-14.5); RDW Standard Deviation 61.3 fL (36.4-46.3); Red Blood Count 4.17 M/uL (4.20-5.40); White Blood Count 2.15 K/ul (4.8-10.8)
--- NOTE | 2022-04-13 13:23 | Fluoroscopy Report ---
FL upper GI series wo air CLINICAL HISTORY: 57 years-old Female with N/V, abd pain ? Gastric Outlet Obstruction. Acute nausea and vomiting with possible gastric outlet obstruction TECHNIQUE: A standard air contrast upper GI series was performed following administration of barium. Multiple spot fluoroscopic images were obtained and provided for review. COMPARISON STUDY: CT chest, abdomen and pelvis April 07, 2022 FLUOROSCOPY TIME: 0.4 minutes. FLUOROSCOPY IMAGES: 14 Ka,r: 84 mGy FINDINGS: The patient swallowed barium without difficulty. No aspiration was definitively visualized. The eso phagus distended normally with barium. No strictures, mucosal ulcerations, or intraluminal mass lesi ons were identified involving the esophagus. There was no significant gastroesophageal reflux. [place] um was seen to flow freely through the gastroesophageal junction. No active reflux was demonstrated with Valsalva maneuver. Evaluation of the stomach demonstrates no gastric mucosal irregularity or fi lling defect. Gastrojejunostomy. The opacified loops of proximal jejunum appear unremarkable. Surgical clips of the upper abdomen. r-fluid level within the hepatic flexure. Partially imaged pain pump catheter. IMPRESSION: No evidence of gastric outlet obstruction. ACT 112: Negative or not required by law. The above report was generated using voice recognition software. It may contain grammatical, syntax o r spelling errors. Electronically signed by: Fredy Matos M.D. 04/13/2022 1:22 PM
[2022-04-13] MEDS: ONDANSETRON INJ 2 MG/ML 2 ML VIAL IV PRN (13:53)
[2022-04-13] MEDS ORDERED: POTASSIUM CHLORIDE CRTAB 20 MEQ TABCR PO STA (15:37)
--- NOTE | 2022-04-13 15:48 | Hospitalist Progress Note ---
Date of Service April 13, 2022 Assessment & Plan (1) Cirrhosis: Plan 57 y/o F with PMH of alcohol abuse, end-stage liver disease, esophageal varices, portal hypertension, hypothyroidism, peripheral neuropathy, history of convulsions, depression, anxiety, RLS, history of narcotic abusepresented to ER 04/07 with complaint of diffuse abdominal cramping and melena x 5 days. States today vomited red blood x1. She is being managed for the following: GIB (gastrointestinal bleeding): Possible colitis: will use unasyn. In ER vitals stable. H&H: 9.2. Hgb was 8.7 on 03/06/2022. PLT: 137, INR 1.2. Labs around baseline Admitting CT ABD/PELVIS: 1. Diffusely thickened large and small bowel most pronounced at the gastrojejunostomy site. This has progressed in the interval. This could be due to the patient's diffuse edematous state or a nonspecific enterocolitis. 2. No evidence for bowel obstruction. 3. Cirrhosis with splenomegaly. 4. Large volume ascites persists. 5. Additional findings as described above. Stool culture, C. difficile ----> negative. Admitting Blood cultures: f/u s/p paracentesis 04/08 - 2L Out, analysis reviewed, f/u 04/08 culture - pending. GI evaled, ppi bid. EGD 04/13 +ve for varices in lower esophagus/no source of bleeding identified/mild portal gastropathy/no gastric varices/ stenotic gastroenteric anastomosis with circumferential erosion. Recs after the scope is resume full liquid diet and UGIS. Palliative evaled, plan for discharge to home w/ hospice after paracentesis. Pain Mx. ---Hospice declined as doesn't qualify for hospice Pt will need to f/u w/ palliative as OP on DC. Pain and SOB improving after paracentesis. Monitor HnH and transfuse for Hb < 7 or symptomatic anemia. c/w unasyn 04/08 -- Augmentin 04/11. c/w PPI IV to PO PPI today, f/u GI as OP. Full liq diet resumed today, advance as sea, monitor HnH. Cirrhosis: Esophageal varices: Portal hypertensive gastropathy: Pancytopenia: Plan: H/O end-stage liver disease, esophageal varices, portal hypertension, gastric varices s/p embolization Continue rifaximin, lactulose, lasix, spironolactone. Abdominal ascites: Recent [facility] hospitalization 03/02/2022-03/07/2022 and had abdominal paracentesis x 2 with removal of 4 L Abdominal ascites secondary to decompensated alcoholic cirrhosis R/O SBP Diagnostic/therapeutic paracentesis - awaiting culture. f/u GI as OP. Acute hypokalemia: acute on chronic hypokalemia; monitor and replete Chronic pain: h/o narcotic abuse; not on chronic opioids currently. Alcohol abuse: History of alcohol abuse, reports no EtOH intake in the last juwan h, counseled on need for continued alcohol cessation. Continue thiamine and folic acid. DVT Prophylaxis: SCDs due to bleeding DNR/DNI as per discussion with pt Follows with Dr Moya for routine care Dispo: pending GI clearance and Hb stabilization. Diet resumed today, adv as sea Admission and Anticipated Discharge Date Admission Date: April 10, 2022 Subjective Patient seen and examined at bedside as a follow-up of GI bleed and ascites in the setting of/history of end-stage liver disease, pancytopenia, portal hypertensive gastropathy, esophageal varices. Patient was lying in bed, on room air, NAD, multiple small BMs - pt denies black stool or blood in stool, reports belly pain but nontender on exam, d/w GI - s/p scope and can have full liq diet today. Plan for UGI series. Pt w/ no chest pain/palpitation/nausea or vomiting. Continues to report improvement in her shortness of breath after paracentesis. Physical Exam Physical Exam: GENERAL: Alert and oriented x3. NAD, on RA. Chronically ill/frail/weak/lean and thin appearing. Appears older than stated age. HEENT: No pallor, no icterus. Pupils equal, round and reactive to light. Oral mucosa moist. NECK: No JVD, no neck masses. HEART: S1 and S2 heard. Regular rate and rhythm. No murmur, no gallop. RESPIRATORY SYSTEM: Normal AP diameter. No accessory muscle use. No wheezing, no crackles. ABDOMEN: Soft, bowel sounds present, has subcu pain pump/no ss of infection, no distention. non tender CENTRAL NERVOUS SYSTEM: No facial droop. Speech is clear. Obeys simple commands. Moves extremities. EXTREMITIES: No edema, no erythema seen. Results & Data Results & Data ([facility]) Vital Signs (Past 12 Hours) Vital Signs Temp Pulse Pulse Resp BP BP Pulse Ox 04/13/22 15:34 36.9 C 63 16 93/53 L 95 04/13/22 14:52 62 04/13/22 11:17 36.8 C 56 L 97/60 L 94 04/13/22 10:45 38.7 C H 61 16 107/58 L 97 04/13/22 10:30 36.8 C 60 16 105/60 97 04/13/22 10:08 57 L 20 87/49 L 97 04/13/22 09:53 63 16 90/56 L 98 04/13/22 09:38 75 16 74/42 L 98 04/13/22 08:04 36.4 C L 71 16 91/70 L 98 04/13/22 07:44 36.9 C 58 L 96/60 L 95 04/13/22 07:23 59 L 04/13/22 06:02 62 107/71 O2 Del Method 04/13/22 15:34 Room Air 04/13/22 14:52 04/13/22 11:17 Room Air 04/13/22 10:45 Room Air 04/13/22 10:30 Room Air 04/13/22 10:08 Room Air 04/13/22 09:53 Room Air 04/13/22 09:38 Room Air 04/13/22 08:04 Room Air 04/13/22 07:44 Room Air 04/13/22 07:23 04/13/22 06:02 (1) Cirrhosis Hepatic cirrhosis type: alcoholic cirrhosis
[2022-04-13] MEDS: MAGNESIUM SULFATE / D5W 1 GM/100 ML BAG IV SCH ×3 (16:54→21:24)
[2022-04-13] MEDS: GABAPENTIN 600 MG TAB PO SCH (21:30)
[2022-04-13] MEDS: GABAPENTIN 100 MG CAP PO SCH (21:31)
[2022-04-13] MEDS: rOPINIRole HCL 0.25 MG TABLET PO SCH (21:32)
[2022-04-13] MEDS: PANTOprazole 40 MG TAB PO SCH (21:32)
[2022-04-13] MEDS: traZODone HCL 50 MG TAB PO SCH (21:33)
[2022-04-14] MEDS: MoRPHine SULFATE IR 15 MG TAB (IMMEDIATE RELEASE) PO PRN ×3 (06:35→18:33)
[2022-04-14 07:15] LABS: BUN Creatinine Ratio 7.7 (10-20); Calcium 8.3 mg/dl (8.5-10.1); Creatinine Clr Calc Pharmacy 95.5 ml/min; Est GFR (African American) 122.1 ml/min; Est GFR (Non-African American) 105.3 ml/min; Magnesium 1.8 mg/dl (1.7-2.4); Phosphorus 3.3 mg/dl (2.5-4.9); Potassium 3.5 mmol/L (3.5-5.1)
[2022-04-14 07:20] LABS: Hematocrit (blood only) 30.8 % (37.0-47.0); Hemoglobin 10.1 g/dl (12.0-16.0); Mean Corpuscular Hgb Conc 32.8 g/dL (32.0-36.0); Mean Corpuscular Volume 79.4 fL (80.0-100.0); Platelet Count 73 K/uL (130-400); RDW Coefficient of Variation 21.8 % (11.5-14.5); RDW Standard Deviation 62.4 fL (36.4-46.3); Red Blood Count 3.88 M/uL (4.20-5.40)
--- NOTE | 2022-04-14 07:53 | Hospitalist Progress Note ---
Date of Service April 14, 2022 Assessment & Plan (1) Cirrhosis: Plan 57 y/o F with/ hx of alcohol abuse, end-stage liver disease, esophageal varices, portal hypertension, hypothyroidism, peripheral neuropathy, history of convulsions, depression, anxiety, RLS, history of narcotic abusepresented to ER 04/07 with complaint of diffuse abdominal cramping and melena x 5 days. States today vomited red blood x1. She is being managed for the following: GIB (gastrointestinal bleeding): Possible colitis: will use unasyn. In ER vitals stable. H&H: 9.2/. Hgb was 8.7 on 03/06/2022. PLT: 137, INR 1.2. Labs around baseline Admitting CT ABD/PELVIS: 1. Diffusely thickened large and small bowel most pronounced at the gastrojejunostomy site. This has progressed in the interval. This could be due to the patient's diffuse edematous state or a nonspecific enterocolitis. 2. No evidence for bowel obstruction. 3. Cirrhosis with splenomegaly. 4. Large volume ascites persists. 5. Additional findings as described above. Stool culture, C. difficile ----> negative. Admitting Blood cultures: negative s/p paracentesis 04/08 - 2L Out, analysis reviewed, f/u 04/08 culture - pending. GI evaled, ppi bid. EGD 04/13 +ve for varices in lower esophagus/no source of bleeding identified/mild portal gastropathy/no gastric varices/ stenotic gastroenteric anastomosis with circumferential erosion. Recs after the scope is resume full liquid diet and UGIS. Palliative evaled, plan for discharge to home w/ hospice after paracentesis. Pain Mx. ---Hospice declined as doesn't qualify for hospice Pt will need to f/u w/ palliative as OP on DC. Pain and SOB improving after paracentesis. Monitor HnH and transfuse for Hb < 7 or symptomatic anemia. c/w unasyn 04/08 -- Augmentin 04/11. c/w PPI IV to PO PPI, f/u GI as OP. Full liq diet resumed and advanced today per GI, advance as sea, monitor HnH. Cirrhosis: Esophageal varices: Portal hypertensive gastropathy: Pancytopenia: Plan: H/O end-stage liver disease, esophageal varices, portal hypertension, gastric varices s/p embolization Continue rifaximin, lactulose, lasix, spironolactone. Abdominal ascites: Recent [facility] hospitalization 03/02/2022-03/07/2022 and had abdominal paracentesis x 2 with removal of 4 L Abdominal ascites secondary to decompensated alcoholic cirrhosis R/O SBP Diagnostic/therapeutic paracentesis - awaiting culture. f/u GI as OP. Acute hypokalemia: acute on chronic hypokalemia; monitor and replete Chronic pain: h/o narcotic abuse; not on chronic opioids currently. Alcohol abuse: History of alcohol abuse, reports no EtOH intake in the last month, counseled on need for continued alcohol cessation. Continue thiamine and folic acid. DVT Prophylaxis: SCDs due to bleeding DNR/DNI as per discussion with pt Follows with Dr Moya for routine care Dispo: pending GI clearance and Hb stabilization. Diet advanced today from full liquid Admission and Anticipated Discharge Date Admission Date: April 10, 2022 Subjective Patient seen in follow-up of GI bleed and ascites in the setting of/history of end-stage liver disease, pancytopenia, portal hypertensive gastropathy, esophageal varices. Patient lying in bed, on room air, NAD Reports feeling better since admission GI consulted and following, underwent EGD, now plan to advance diet Pt denies fever, chills, chest pain, shortness of breath, palpitation/nausea or vomiting at this time. Review of Systems Review of Systems: All systems reviewed & are unremarkable except as noted in Subjective Physical Exam Physical Exam: GENERAL: Alert and oriented x3. NAD, on RA. Chronically ill/frail/weak/lean and thin appearing. HEENT: No pallor, no icterus. Pupils equal, round and reactive to light. Oral mucosa moist. NECK: No JVD, no neck masses. HEART: S1 and S2 heard. Regular rate and rhythm. No murmur, no gallop. RESPIRATORY: Normal AP diameter. No accessory muscle use. No wheezing, no crackles. ABDOMEN: Soft, bowel sounds present, has subcu pain pump/no ss of infection, no distention. non tender NEURO: No facial droop. Speech is clear. Obeys simple commands. Moves extremities. EXTREMITIES: No edema, no erythema seen. Results & Data Results & Data ([facility]) Vital Signs (Past 12 Hours) Vital Signs Temp Pulse Pulse Resp BP Pulse Ox O2 Del Method 04/14/22 07:38 57 L 04/14/22 07:23 37.0 C 67 20 103/61 97 Room Air 04/14/22 02:55 36.9 C 63 18 93/57 L 93 Room Air 04/13/22 22:19 54 L 04/13/22 21:40 Room Air 04/13/22 23:11 36.8 C 62 18 89/52 L 94 Room Air Laboratory Results 04/14/22 04/14/22 04/13/22 Range/Units 06:30 06:30 10:34 WBC 1.50 L (4.8-10.8) K/ul RBC 3.88 L (4.20-5.40) M/uL Hgb 10.1 L (12.0-16.0) g/dl Hct 30.8 L (37.0-47.0) % MCV 79.4 L (80.0-100.0) fL MCH 26.0 (25.0-34.0) pg MCHC 32.8 (32.0-36.0) g/dL RDW Std Deviation 62.4 H (36.4-46.3) fL RDW Coeff of Chetan 21.8 H (11.5-14.5) % Plt Count 73 L (130-400) K/uL MPV (9.4-12.4) fL Sodium 138 138 (136-145) mmol/L Potassium 3.5 3.3 L (3.5-5.1) mmol/L Chloride 104 101 (98-107) mmol/L Carbon Dioxide 31 29 (21-32) mmol/L Anion Gap 3 8 (3-11) BUN 4 L 5 L (6-23) mg/dl Creatinine 0.52 L 0.56 L (0.6-1.2) mg/dl Est Cr Clr Drug Dosing 95.5 98.5 ml/min Est GFR ( Amer) 122.1 119.1 ml/min Est GFR (Non-Af Amer) 105.3 102.8 ml/min BUN/Creatinine Ratio 7.7 L 8.9 L (10-20) Glucose 88 84 (70-99(Fasting)) mg/dl Calcium 8.3 L 8.4 L (8.5-10.1) mg/dl Phosphorus 3.3 (2.5-4.9) mg/dl Magnesium 1.8 1.4 L (1.7-2.4) mg/dl 04/13/22 Range/Units 10:34 WBC 2.15 L (4.8-10.8) K/ul RBC 4.17 L (4.20-5.40) M/uL Hgb 10.8 L (12.0-16.0) g/dl Hct 33.6 L (37.0-47.0) % MCV 80.6 (80.0-100.0) fL MCH 25.9 (25.0-34.0) pg MCHC 32.1 (32.0-36.0) g/dL RDW Std Deviation 61.3 H (36.4-46.3) fL RDW Coeff of Chetan 21.5 H (11.5-14.5) % Plt Count 80 L (130-400) K/uL MPV 11.3 (9.4-12.4) fL Sodium (136-145) mmol/L Potassium (3.5-5.1) mmol/L Chloride (98-107) mmol/L Carbon Dioxide (21-32) mmol/L Anion Gap (3-11) BUN (6-23) mg/dl Creatinine (0.6-1.2) mg/dl Est Cr Clr Drug Dosing ml/min Est GFR ( Amer) ml/min Est GFR (Non-Af Amer) ml/min BUN/Creatinine Ratio (10-20) Glucose (70-99(Fasting)) mg/dl Calcium (8.5-10.1) mg/dl Phosphorus (2.5-4.9) mg/dl Magnesium (1.7-2.4) mg/dl Medications Administered Current Inpatient Medications Acetaminophen (Acetaminophen 325 Mg Tab) 650 mg PO Q4H PRN PRN Reason: Pain or Fever Stop: 05/07/22 16:25 Last Admin: 04/10/22 15:16 Dose: 650 mg Amoxicillin/Clavulanate Potassium (Amoxicillin/Clavulanate 875 Mg Tab) 1 tab PO BIDM MICHELLE Stop: 04/21/22 16:59 Last Admin: 04/13/22 16:55 Dose: 1 tab Lipase/Protease/Amylase (Pancreaze (Lipase 10,500u) Cap) 1 cap PO QID [facility] Stop: 05/07/22 16:59 Last Admin: 04/13/22 21:31 Dose: 1 cap Citalopram Hydrobromide (Citalopram 20 Mg Tab) 20 mg PO QAM MICHELLE Stop: 05/08/22 08:59 Last Admin: 04/13/22 10:22 Dose: 20 mg Colestipol HCl (Colestipol Hcl 1 Gm Tab) 2 gm PO BID MICHELLE Stop: 05/07/22 20:59 Last Admin: 04/13/22 21:29 Dose: 2 gm Folic Acid (Folic Acid 1 Mg Tab) 1 mg PO QAM MICHELLE Stop: 05/08/22 08:59 Last Admin: 04/13/22 10:22 Dose: 1 mg Furosemide (Furosemide 40 Mg Tab) 40 mg PO BID MICHELLE Stop: 05/08/22 08:59 Last Admin: 04/13/22 21:30 Dose: 40 mg Gabapentin (Gabapentin 100 Mg Cap) 100 mg PO HS [facility] Stop: 05/07/22 20:59 Last Admin: 04/13/22 21:31 Dose: 100 mg Gabapentin (Gabapentin 600 Mg Tab) 600 mg PO HS MICHELLE Stop: 05/07/22 20:59 Last Admin: 04/13/22 21:30 Dose: 600 mg Hydroxyzine HCl (Hydroxyzine Hcl 25 Mg Tab) 25 mg PO BID PRN PRN Reason: Anxiety Stop: 05/07/22 16:25 Last Admin: 04/11/22 20:03 Dose: 25 mg Lactulose (Lactulose Syrup 20 Gm/30 Ml Udc) 20 gm PO TID MICHELLE Stop: 05/07/22 20:59 Last Admin: 04/13/22 21:31 Dose: Not Given Midodrine (Midodrine Hcl 2.5 Mg Tab) 5 mg PO TID@0800,1400,1800 [facility] Stop: 05/07/22 17:59 Last Admin: 04/13/22 18:43 Dose: 5 mg Miscellaneous (Non-Formulary Medication: Witch Jeanne Pads (From Store Room)) 1 each N/A 6XD PRN PRN Reason: BLEEDING HEMORRHOID Stop: 05/10/22 21:14 Morphine Sulfate (Morphine Sulfate Ir 15 Mg Tab (Immediate Release)) 15 mg PO Q6H PRN PRN Reason: mod to severe pain Stop: 04/22/22 12:41 Last Admin: 04/14/22 06:35 Dose: 15 mg Ondansetron HCl (Ondansetron Inj 2 Mg/Ml 2 Ml Vial) 4 mg IV Q6H PRN PRN Reason: Nausea Stop: 05/07/22 16:25 Last Admin: 04/13/22 13:53 Dose: 4 mg Pantoprazole Sodium (Pantoprazole 40 Mg Tab) 40 mg PO BID MICHELLE Stop: 05/13/22 20:59 Last Admin: 04/13/22 21:32 Dose: 40 mg Rifaximin (Rifaximin 550 Mg Tablet) 550 mg PO BID MICHELLE Stop: 05/07/22 20:59 Last Admin: 04/13/22 21:32 Dose: 550 mg Ropinirole HCl (Ropinirole Hcl 0.25 Mg Tablet) 0.25 mg PO HS MICHELLE Stop: 05/07/22 20:59 Last Admin: 04/13/22 21:32 Dose: 0.25 mg Spironolactone (Spironolactone 100 Mg Tab) 100 mg PO DAILY MICHELLE Stop: 05/08/22 08:59 Last Admin: 04/13/22 10:24 Dose: 100 mg Thiamine HCl (Thiamine Hcl 100 Mg Tab) 100 mg PO QAM MICHELLE Stop: 05/08/22 08:59 Last Admin: 04/13/22 10:23 Dose: 100 mg Trazodone HCl (Trazodone Hcl 50 Mg Tab) 50 mg PO QPM MICHELLE Stop: 05/07/22 20:59 Last Admin: 04/13/22 21:33 Dose: 50 mg (1) Cirrhosis Hepatic cirrhosis type: alcoholic cirrhosis
--- NOTE | 2022-04-14 08:10 | Gastroenterology Progress Note ---
Date of Service April 14, 2022 Assessment & Plan (1) Cirrhosis: Plan: 57 year old female with history of ETOH cirrhosis (abstinent for few months), PHG, esophageal varices s/p banding (MELD 10) admitted for possible GI bleed (hematemesis, melena). EGD yesterday with evidence of nonbleeding varices, UGI series unremarkable, clinically feeling well - May continue diet as tolerated - No ETOH - Continue Lactulose/Xifaxan - Continue Lasix/Aldactone - Continue PPI - MELD labs every 6 months - HCC Screening every 6 months - OP follow up with regular GI/Hep provider Thank you for allowing us to participate in the care of this patient. Please call with any acute changes, questions or concerns. Please see addendum below with additional recommendation from my supervising physician. Admission and Anticipated Discharge Date Admission Date: April 10, 2022 Supervising Physician Co-Signing Physician Notes Attg add: I interviweed and examined pt, reviewed chart and labs. Pt without complaint - she has no pain, is hungry, and asking for food. Abd is soft and NT. UGIS shows no delay of contrast out of the stomach. Will trial adv diet. Will follow for recurrent n/v. Subjective Pt was seen and evaluated, chart reviewed. Feeling well. No abd pain Tolerating PO intake well. Wants regular diet Upper GI 2022: he patient swallowed barium without difficulty. No aspiration was definitively visualized. The esophagus distended normally with barium. No strictures, mucosal ulcerations, or intraluminal mass lesions were identified involving the esophagus. There was no significant gastroesophageal reflux. Barium was seen to flow freely through the gastroesophageal junction. No active reflux was demonstrated with Valsalva maneuver. Evaluation of the stomach demonstrates no gastric mucosal irregularity or filling defect. Gastrojejunosto my. The opacified loops of proximal jejunum appear unremarkable. Surgical clips of the upper abdomen. Air-fluid level within the hepatic flexure. Partially imaged pain pump catheter. EGD 2022: There were three columns of grade 1 varices in the lower esophagus. There was no esophagitis. There was a retained clip in the body of the stomach. There was no retained blood in the stomach, and no source of bleedin was identified. There was mild portal gastropathy. There were no gastric varices seen. There was a circumferential erosion at the gastroenteric anastamosis. The gastroenteric anastamosis was stenotic, with resistance to intubation with the upper endoscope. The gastroenteric anastamosis was dilated by passage of the upper endoscope; there was self limited oozing after passage of the upper scope. The opening to the afferent loop was angulated. The mucosa of the afferent loop was normal. Review of Systems Review of Systems: All systems reviewed & are unremarkable except as noted in HPI & below Physical Exam Constitutional: WD/WN, vitals as above Respiratory: normal respiratory effort, lungs clear to auscultation Cardiovascular: Rate/Rhythm: regular rate and regular rhythm Gastrointestinal (Abdomen): normal bowel sounds, soft, nontender, no hepatosplenomegaly Skin: no rashes, warm and dry Results & Data ([facility]) Vital Signs (Past 12 Hours) Vital Signs Temp Pulse Pulse Resp BP Pulse Ox O2 Del Method 04/14/22 07:38 57 L 04/14/22 07:23 37.0 C 67 20 103/61 97 Room Air 04/14/22 02:55 36.9 C 63 18 93/57 L 93 Room Air 04/13/22 22:19 54 L 04/13/22 21:40 Room Air 04/13/22 23:11 36.8 C 62 18 89/52 L 94 Room Air Laboratory Results 04/14/22 04/14/22 04/13/22 Range/Units 06:30 06:30 10:34 WBC 1.50 L (4.8-10.8) K/ul RBC 3.88 L (4.20-5.40) M/uL Hgb 10.1 L (12.0-16.0) g/dl Hct 30.8 L (37.0-47.0) % MCV 79.4 L (80.0-100.0) fL MCH 26.0 (25.0-34.0) pg MCHC 32.8 (32.0-36.0) g/dL RDW Std Deviation 62.4 H (36.4-46.3) fL RDW Coeff of Chetan 21.8 H (11.5-14.5) % Plt Count 73 L (130-400) K/uL MPV (9.4-12.4) fL Sodium 138 138 (136-145) mmol/L Potassium 3.5 3.3 L (3.5-5.1) mmol/L Chloride 104 101 (98-107) mmol/L Carbon Dioxide 31 29 (21-32) mmol/L Anion Gap 3 8 (3-11) BUN 4 L 5 L (6-23) mg/dl Creatinine 0.52 L 0.56 L (0.6-1.2) mg/dl Est Cr Clr Drug Dosing 95.5 98.5 ml/min Est GFR ( Amer) 122.1 119.1 ml/min Est GFR (Non-Af Amer) 105.3 102.8 ml/min BUN/Creatinine Ratio 7.7 L 8.9 L (10-20) Glucose 88 84 (70-99(Fasting)) mg/dl Calcium 8.3 L 8.4 L (8.5-10.1) mg/dl Phosphorus 3.3 (2.5-4.9) mg/dl Magnesium 1.8 1.4 L (1.7-2.4) mg/dl 04/13/22 Range/Units 10:34 WBC 2.15 L (4.8-10.8) K/ul RBC 4.17 L (4.20-5.40) M/uL Hgb 10.8 L (12.0-16.0) g/dl Hct 33.6 L (37.0-47.0) % MCV 80.6 (80.0-100.0) fL MCH 25.9 (25.0-34.0) pg MCHC 32.1 (32.0-36.0) g/dL RDW Std Deviation 61.3 H (36.4-46.3) fL RDW Coeff of Chetan 21.5 H (11.5-14.5) % Plt Count 80 L (130-400) K/uL MPV 11.3 (9.4-12.4) fL Sodium (136-145) mmol/L Potassium (3.5-5.1) mmol/L Chloride (98-107) mmol/L Carbon Dioxide (21-32) mmol/L Anion Gap (3-11) BUN (6-23) mg/dl Creatinine (0.6-1.2) mg/dl Est Cr Clr Drug Dosing ml/min Est GFR ( Amer) ml/min Est GFR (Non-Af Amer) ml/min BUN/Creatinine Ratio (10-20) Glucose (70-99(Fasting)) mg/dl Calcium (8.5-10.1) mg/dl Phosphorus (2.5-4.9) mg/dl Magnesium (1.7-2.4) mg/dl (1) Cirrhosis Hepatic cirrhosis type: alcoholic cirrhosis
[2022-04-14] MEDS: PANCREAZE (LIPASE 10,500U) CAP PO SCH ×4 (09:23→21:29)
[2022-04-14] MEDS: AMOXICILLIN/CLAVULANATE 875 MG TAB PO SCH ×2 (09:23→17:12)
[2022-04-14] MEDS: PANTOprazole 40 MG TAB PO SCH ×2 (09:23→21:30)
[2022-04-14] MEDS: rifAXIMin 550 MG TABLET PO SCH ×2 (09:23→21:29)
[2022-04-14] MEDS: THIAMINE HCL 100 MG TAB PO SCH (09:24)
[2022-04-14] MEDS: CITALOPRAM 20 MG TAB PO SCH (09:24)
[2022-04-14] MEDS: COLESTIPOL HCL 1 GM TAB PO SCH ×2 (09:24→21:28)
[2022-04-14] MEDS: FUROSEMIDE 40 MG TAB PO SCH ×2 (09:24→21:30)
[2022-04-14] MEDS: MIDODRINE HCL 2.5 MG TAB PO SCH ×3 (09:24→18:34)
[2022-04-14] MEDS: FOLIC ACID 1 MG TAB PO SCH (09:24)
[2022-04-14] MEDS: LACTULOSE SYRUP 20 GM/30 ML UDC PO SCH ×3 (09:25→21:29)
[2022-04-14] MEDS: SPIRONOLACTONE 100 MG TAB PO SCH (09:25)
[2022-04-14] MEDS: ONDANSETRON INJ 2 MG/ML 2 ML VIAL IV PRN (20:48)
[2022-04-14] MEDS: traZODone HCL 50 MG TAB PO SCH (21:28)
[2022-04-14] MEDS: GABAPENTIN 100 MG CAP PO SCH (21:30)
[2022-04-14] MEDS: GABAPENTIN 600 MG TAB PO SCH (21:30)
[2022-04-14] MEDS: rOPINIRole HCL 0.25 MG TABLET PO SCH (21:31)
[2022-04-15] MEDS: MoRPHine SULFATE IR 15 MG TAB (IMMEDIATE RELEASE) PO PRN ×4 (00:35→18:43)
[2022-04-15] MEDS: AMOXICILLIN/CLAVULANATE 875 MG TAB PO SCH ×2 (08:11→17:46)
[2022-04-15] MEDS: MIDODRINE HCL 2.5 MG TAB PO SCH ×3 (08:12→17:46)
[2022-04-15] MEDS: LACTULOSE SYRUP 20 GM/30 ML UDC PO SCH ×3 (08:12→22:10)
[2022-04-15] MEDS: CITALOPRAM 20 MG TAB PO SCH (08:12)
[2022-04-15] MEDS: FOLIC ACID 1 MG TAB PO SCH (08:13)
[2022-04-15] MEDS: FUROSEMIDE 40 MG TAB PO SCH ×2 (08:13→22:10)
[2022-04-15] MEDS: PANCREAZE (LIPASE 10,500U) CAP PO SCH ×4 (08:14→22:09)
[2022-04-15] MEDS: PANTOprazole 40 MG TAB PO SCH ×2 (08:14→22:08)
[2022-04-15] MEDS: SPIRONOLACTONE 100 MG TAB PO SCH (08:15)
[2022-04-15] MEDS: THIAMINE HCL 100 MG TAB PO SCH (08:15)
[2022-04-15] MEDS: rifAXIMin 550 MG TABLET PO SCH ×2 (08:15→22:08)
[2022-04-15 08:46] LABS: BUN Creatinine Ratio 12.5 (10-20); Calcium 8.3 mg/dl (8.5-10.1); Creatinine Clr Calc Pharmacy 103.5 ml/min; Est GFR (African American) 125.3 ml/min; Est GFR (Non-African American) 108.1 ml/min; Magnesium 1.4 mg/dl (1.7-2.4); Phosphorus 3.6 mg/dl (2.5-4.9); Potassium 3.7 mmol/L (3.5-5.1)
--- NOTE | 2022-04-15 08:51 | Hospitalist Progress Note ---
Date of Service April 15, 2022 Assessment & Plan (1) Cirrhosis: Plan 57 y/o F with/ hx of alcohol abuse, end-stage liver disease, esophageal varices, portal hypertension, hypothyroidism, peripheral neuropathy, history of convulsions, depression, anxiety, RLS, history of narcotic abusepresented to ER 04/07 with complaint of diffuse abdominal cramping and melena x 5 days. States today vomited red blood x1. She is being managed for the following: GIB (gastrointestinal bleeding): Possible colitis: will use unasyn. In ER vitals stable. H&H: 9.2/. Hgb was 8.7 on 03/06/2022. PLT: 137, INR 1.2. Labs around baseline Admitting CT ABD/PELVIS: 1. Diffusely thickened large and small bowel most pronounced at the gastrojejunostomy site. This has progressed in the interval. This could be due to the patient's diffuse edematous state or a nonspecific enterocolitis. 2. No evidence for bowel obstruction. 3. Cirrhosis with splenomegaly. 4. Large volume ascites persists. 5. Additional findings as described above. Stool culture, C. difficile ----> negative. Admitting Blood cultures: negative s/p paracentesis 04/08 - 2L Out, analysis reviewed, f/u 04/08 culture - pending. GI evaled, ppi bid. EGD 04/13 +ve for varices in lower esophagus/no source of bleeding identified/mild portal gastropathy/no gastric varices/ stenotic gastroenteric anastomosis with circumferential erosion. Recs after the scope is resume full liquid diet and UGIS. Palliative evaled, plan for discharge to home w/ hospice after paracentesis. Pain Mx. ---Hospice declined as doesn't qualify for hospice Pt will need to f/u w/ palliative as OP on DC. Pain and SOB improving after paracentesis. Monitor HnH and transfuse for Hb < 7 or symptomatic anemia. c/w unasyn 04/08 -- Augmentin 04/11. c/w PPI IV to PO PPI, f/u GI as OP. Full liq diet resumed and advanced today per GI, advance as sea, monitor HnH. Cirrhosis: Esophageal varices: Portal hypertensive gastropathy: Pancytopenia: Plan: H/O end-stage liver disease, esophageal varices, portal hypertension, gastric varices s/p embolization Continue rifaximin, lactulose, lasix, spironolactone. Abdominal ascites: Recent [facility] hospitalization 03/02/2022-03/07/2022 and had abdominal paracentesis x 2 with removal of 4 L Abdominal ascites secondary to decompensated alcoholic cirrhosis R/O SBP Diagnostic/therapeutic paracentesis - awaiting culture. f/u GI as OP. Acute hypokalemia: acute on chronic hypokalemia; monitor and replete Chronic pain: h/o narcotic abuse; not on chronic opioids currently. Alcohol abuse: History of alcohol abuse, reports no EtOH intake in the last month, counseled on need for continued alcohol cessation. Continue thiamine and folic acid. DVT Prophylaxis: SCDs due to bleeding DNR/DNI as per discussion with pt Follows with Dr Moya for routine care Dispo: Diet advanced. possibly DC tmrw Admission and Anticipated Discharge Date Admission Date: April 10, 2022 Subjective Patient seen in follow-up of GI bleed and ascites in the setting of/history of end-stage liver disease, pancytopenia, portal hypertensive gastropathy, esophageal varices. Patient lying in bed, on room air, NAD Reports feeling better since admission GI consulted and following, underwent EGD, now tolerating diet Reports frequent stools even without lactulose Pt denies fever, chills, chest pain, shortness of breath, palpitation/nausea or vomiting at this time. Review of Systems Review of Systems: All systems reviewed & are unremarkable except as noted in Subjective Physical Exam Physical Exam: GENERAL: Alert and oriented x3. NAD, on RA. Chronically ill/frail/weak/lean and thin appearing. HEENT: No pallor, no icterus. Pupils equal, round and reactive to light. Oral mucosa moist. NECK: No JVD, no neck masses. HEART: S1 and S2 heard. Regular rate and rhythm. No murmur, no gallop. RESPIRATORY: Normal AP diameter. No accessory muscle use. No wheezing, no crackles. ABDOMEN: Soft, bowel sounds present, has subcu pain pump/no ss of infection, no distention. non tender NEURO: No facial droop. Speech is clear. Obeys simple commands. Moves extremities. EXTREMITIES: No edema, no erythema seen. Results & Data Results & Data ([facility]) Vital Signs (Past 12 Hours) Vital Signs Temp Pulse Pulse Resp BP Pulse Ox O2 Del Method 04/15/22 08:09 36.9 C 61 18 94/58 L 91 Room Air 04/15/22 04:12 36.8 C 75 18 90/53 L 92 Room Air 04/14/22 22:00 56 L 04/15/22 00:55 67 94/57 L 04/14/22 22:12 36.8 C 57 L 16 88/53 L 92 Room Air Laboratory Results 04/15/22 04/15/22 Range/Units 08:04 08:04 WBC 1.47 L (4.8-10.8) K/ul RBC 3.74 L (4.20-5.40) M/uL Hgb 9.7 L (12.0-16.0) g/dl Hct 29.8 L (37.0-47.0) % MCV 79.7 L (80.0-100.0) fL MCH 25.9 (25.0-34.0) pg MCHC 32.6 (32.0-36.0) g/dL RDW Std Deviation 63.1 H (36.4-46.3) fL RDW Coeff of Chetan 22.1 H (11.5-14.5) % Plt Count 56 L (130-400) K/uL Sodium 136 (136-145) mmol/L Potassium 3.7 (3.5-5.1) mmol/L Chloride 102 (98-107) mmol/L Carbon Dioxide 30 (21-32) mmol/L Anion Gap 4 (3-11) BUN 6 (6-23) mg/dl Creatinine 0.48 L (0.6-1.2) mg/dl Est Cr Clr Drug Dosing 103.5 ml/min Est GFR ( Amer) 125.3 ml/min Est GFR (Non-Af Amer) 108.1 ml/min BUN/Creatinine Ratio 12.5 (10-20) Glucose 94 (70-99(Fasting)) mg/dl Calcium 8.3 L (8.5-10.1) mg/dl Phosphorus 3.6 (2.5-4.9) mg/dl Magnesium 1.4 L (1.7-2.4) mg/dl Medications Administered Current Inpatient Medications Acetaminophen (Acetaminophen 325 Mg Tab) 650 mg PO Q4H PRN PRN Reason: Pain or Fever Stop: 05/07/22 16:25 Last Admin: 04/10/22 15:16 Dose: 650 mg Amoxicillin/Clavulanate Potassium (Amoxicillin/Clavulanate 875 Mg Tab) 1 tab PO BIDM [facility] Stop: 04/21/22 16:59 Last Admin: 04/15/22 08:11 Dose: 1 tab Lipase/Protease/Amylase (Pancreaze (Lipase 10,500u) Cap) 1 cap PO QID [facility] Stop: 05/07/22 16:59 Last Admin: 04/15/22 08:14 Dose: 1 cap Citalopram Hydrobromide (Citalopram 20 Mg Tab) 20 mg PO QAM [facility] Stop: 05/08/22 08:59 Last Admin: 04/15/22 08:12 Dose: 20 mg Colestipol HCl (Colestipol Hcl 1 Gm Tab) 2 gm PO BID [facility] Stop: 05/07/22 20:59 Last Admin: 04/14/22 21:28 Dose: 2 gm Folic Acid (Folic Acid 1 Mg Tab) 1 mg PO QAM [facility] Stop: 05/08/22 08:59 Last Admin: 04/15/22 08:13 Dose: 1 mg Furosemide (Furosemide 40 Mg Tab) 40 mg PO BID [facility] Stop: 05/08/22 08:59 Last Admin: 04/15/22 08:13 Dose: 40 mg Gabapentin (Gabapentin 100 Mg Cap) 100 mg PO [facility] Stop: 05/07/22 20:59 Last Admin: 04/14/22 21:30 Dose: 100 mg Gabapentin (Gabapentin 600 Mg Tab) 600 mg PO [facility] Stop: 05/07/22 20:59 Last Admin: 04/14/22 21:30 Dose: 600 mg Hydroxyzine HCl (Hydroxyzine Hcl 25 Mg Tab) 25 mg PO BID PRN PRN Reason: Anxiety Stop: 05/07/22 16:25 Last Admin: 04/11/22 20:03 Dose: 25 mg Lactulose (Lactulose Syrup 20 Gm/30 Ml Udc) 20 gm PO TID [facility] Stop: 05/07/22 20:59 Last Admin: 04/15/22 08:12 Dose: Not Given Magnesium Oxide (Magnesium Oxide 400 Mg Tab) 400 mg PO BID [facility] Stop: 05/15/22 08:59 Midodrine (Midodrine Hcl 2.5 Mg Tab) 5 mg PO TID@0800,1400,1800 [facility] Stop: 05/07/22 17:59 Last Admin: 04/15/22 08:12 Dose: 5 mg Miscellaneous (Non-Formulary Medication: Witch Jeanne Pads (From Store Room)) 1 each N/A 6XD PRN PRN Reason: BLEEDING HEMORRHOID Stop: 05/10/22 21:14 Morphine Sulfate (Morphine Sulfate Ir 15 Mg Tab (Immediate Release)) 15 mg PO Q6H PRN PRN Reason: mod to severe pain Stop: 04/22/22 12:41 Last Admin: 04/15/22 06:35 Dose: 15 mg Ondansetron HCl (Ondansetron Inj 2 Mg/Ml 2 Ml Vial) 4 mg IV Q6H PRN PRN Reason: Nausea Stop: 05/07/22 16:25 Last Admin: 04/14/22 20:48 Dose: 4 mg Pantoprazole Sodium (Pantoprazole 40 Mg Tab) 40 mg PO BID [facility] Stop: 05/13/22 20:59 Last Admin: 04/15/22 08:14 Dose: 40 mg Rifaximin (Rifaximin 550 Mg Tablet) 550 mg PO BID [facility] Stop: 05/07/22 20:59 Last Admin: 04/15/22 08:15 Dose: 550 mg Ropinirole HCl (Ropinirole Hcl 0.25 Mg Tablet) 0.25 mg PO HS [facility] Stop: 05/07/22 20:59 Last Admin: 04/14/22 21:31 Dose: 0.25 mg Spironolactone (Spironolactone 100 Mg Tab) 100 mg PO DAILY [facility] Stop: 05/08/22 08:59 Last Admin: 04/15/22 08:15 Dose: 100 mg Thiamine HCl (Thiamine Hcl 100 Mg Tab) 100 mg PO QAM [facility] Stop: 05/08/22 08:59 Last Admin: 04/15/22 08:15 Dose: 100 mg Trazodone HCl (Trazodone Hcl 50 Mg Tab) 50 mg PO QPM [facility] Stop: 05/07/22 20:59 Last Admin: 04/14/22 21:28 Dose: 50 mg (1) Cirrhosis Hepatic cirrhosis type: alcoholic cirrhosis
--- NOTE | 2022-04-15 09:11 | Gastroenterology Progress Note ---
Date of Service April 15, 2022 Assessment & Plan (1) Cirrhosis: Plan: 57 year old female with history of ETOH cirrhosis (abstinent for few months), PHG, esophageal varices s/p banding (MELD 10) admitted for possible GI bleed (hematemesis, melena). EGD yesterday with evidence of nonbleeding varices, UGI series unremarkable, clinically feeling well requesting diet - May continue diet as tolerated - No ETOH - Continue Lactulose/Xifaxan - Continue Lasix/Aldactone - Continue PPI - MELD labs every 6 months - HCC Screening every 6 months - OP follow up with regular GI/Hep provider GI will sign off. Thank you for allowing us to participate in the care of this patient. Please call with any acute changes, questions or concerns. Please see addendum below with additional recommendation from my supervising physician. Admission and Anticipated Discharge Date Admission Date: April 10, 2022 Supervising Physician Co-Signing Physician Notes Attg add: I interviewed and examined pt, reviewed Subjective Feeling well. Hungry and tolerating diet. Discussion and examination limited as she was in the restroom. Review of Systems Review of Systems: All systems reviewed & are unremarkable except as noted in HPI & below Physical Exam Constitutional: WD/WN, vitals as above Respiratory: normal respiratory effort Gastrointestinal (Abdomen): Percussion/Palpation: abdomen soft Skin: no rashes, warm and dry Results & Data ([facility]) Vital Signs (Past 12 Hours) Vital Signs Temp Pulse Pulse Resp BP Pulse Ox O2 Del Method 04/15/22 08:09 36.9 C 61 18 94/58 L 91 Room Air 04/15/22 04:12 36.8 C 75 18 90/53 L 92 Room Air 04/14/22 22:00 56 L 04/15/22 00:55 67 94/57 L 04/14/22 22:12 36.8 C 57 L 16 88/53 L 92 Room Air Laboratory Results 04/15/22 04/15/22 Range/Units 08:04 08:04 WBC Pending RBC Pending Hgb Pending Hct Pending MCV Pending MCH Pending MCHC Pending Plt Count Pending Sodium 136 (136-145) mmol/L Potassium 3.7 (3.5-5.1) mmol/L Chloride 102 (98-107) mmol/L Carbon Dioxide 30 (21-32) mmol/L Anion Gap 4 (3-11) BUN 6 (6-23) mg/dl Creatinine 0.48 L (0.6-1.2) mg/dl Est Cr Clr Drug Dosing 103.5 ml/min Est GFR ( Amer) 125.3 ml/min Est GFR (Non-Af Amer) 108.1 ml/min BUN/Creatinine Ratio 12.5 (10-20) Glucose 94 (70-99(Fasting)) mg/dl Calcium 8.3 L (8.5-10.1) mg/dl Phosphorus 3.6 (2.5-4.9) mg/dl Magnesium 1.4 L (1.7-2.4) mg/dl Diagnostic Findings 04/15/22 04/15/22 Range/Units 08:04 08:04 WBC Pending RBC Pending Hgb Pending Hct Pending MCV Pending MCH Pending MCHC Pending Plt Count Pending Sodium 136 (136-145) mmol/L Potassium 3.7 (3.5-5.1) mmol/L Chloride 102 (98-107) mmol/L Carbon Dioxide 30 (21-32) mmol/L Anion Gap 4 (3-11) BUN 6 (6-23) mg/dl Creatinine 0.48 L (0.6-1.2) mg/dl Est Cr Clr Drug Dosing 103.5 ml/min Est GFR ( Amer) 125.3 ml/min Est GFR (Non-Af Amer) 108.1 ml/min BUN/Creatinine Ratio 12.5 (10-20) Glucose 94 (70-99(Fasting)) mg/dl Calcium 8.3 L (8.5-10.1) mg/dl Phosphorus 3.6 (2.5-4.9) mg/dl Magnesium 1.4 L (1.7-2.4) mg/dl (1) Cirrhosis Hepatic cirrhosis type: alcoholic cirrhosis
[2022-04-15 09:36] LABS: Hematocrit (blood only) 29.8 % (37.0-47.0); Hemoglobin 9.7 g/dl (12.0-16.0); Mean Corpuscular Hemoglobin 25.9 pg (25.0-34.0); Mean Corpuscular Hgb Conc 32.6 g/dL (32.0-36.0); Mean Corpuscular Volume 79.7 fL (80.0-100.0); Platelet Count 56 K/uL (130-400); RDW Coefficient of Variation 22.1 % (11.5-14.5); RDW Standard Deviation 63.1 fL (36.4-46.3); Red Blood Count 3.74 M/uL (4.20-5.40); White Blood Count 1.47 K/ul (4.8-10.8)
[2022-04-15] MEDS: MAGNESIUM OXIDE 400 MG TAB PO SCH ×2 (10:13→22:10)
[2022-04-15] MEDS: COLESTIPOL HCL 1 GM TAB PO SCH ×2 (11:12→22:09)
[2022-04-15] MEDS ORDERED: MAGNESIUM SULFATE / D5W 1 GM/100 ML BAG IV ONE (12:20)
[2022-04-15] MEDS ORDERED: ADVANCED PROBIOTIC 1250 MG CAPSULE PO SCH (12:30)
[2022-04-15] MEDS: ONDANSETRON INJ 2 MG/ML 2 ML VIAL IV PRN (17:15)
[2022-04-15] MEDS ORDERED: PROMETHAZINE HCL 12.5 MG in SODIUM CHLORIDE 0.9% 50 ML IV STA (19:55)
[2022-04-15] MEDS: GABAPENTIN 100 MG CAP PO SCH (22:08)
[2022-04-15] MEDS: traZODone HCL 50 MG TAB PO SCH (22:08)
[2022-04-15] MEDS: rOPINIRole HCL 0.25 MG TABLET PO SCH (22:09)
[2022-04-15] MEDS: GABAPENTIN 600 MG TAB PO SCH (22:10)
[2022-04-16] MEDS: MoRPHine SULFATE IR 15 MG TAB (IMMEDIATE RELEASE) PO PRN ×4 (00:48→19:17)
[2022-04-16] MEDS: PANTOprazole 40 MG TAB PO SCH ×2 (08:36→21:22)
[2022-04-16] MEDS: MAGNESIUM OXIDE 400 MG TAB PO SCH ×2 (08:36→21:23)
[2022-04-16] MEDS: FUROSEMIDE 40 MG TAB PO SCH ×2 (08:36→21:20)
[2022-04-16] MEDS: THIAMINE HCL 100 MG TAB PO SCH (08:37)
[2022-04-16] MEDS: COLESTIPOL HCL 1 GM TAB PO SCH ×2 (08:37→21:21)
[2022-04-16] MEDS: FOLIC ACID 1 MG TAB PO SCH (08:37)
[2022-04-16] MEDS: PANCREAZE (LIPASE 10,500U) CAP PO SCH ×4 (08:37→22:59)
[2022-04-16] MEDS: rifAXIMin 550 MG TABLET PO SCH ×2 (08:38→21:24)
[2022-04-16] MEDS: SPIRONOLACTONE 100 MG TAB PO SCH (08:38)
[2022-04-16] MEDS: AMOXICILLIN/CLAVULANATE 875 MG TAB PO SCH ×2 (08:38→18:10)
[2022-04-16] MEDS: CITALOPRAM 20 MG TAB PO SCH (08:39)
[2022-04-16] MEDS: LACTULOSE SYRUP 20 GM/30 ML UDC PO SCH ×3 (08:39→21:19)
[2022-04-16] MEDS: MIDODRINE HCL 2.5 MG TAB PO SCH ×3 (08:39→18:11)
[2022-04-16 08:44] LABS: BUN Creatinine Ratio 11.9 (10-20); Calcium 8.8 mg/dl (8.5-10.1); Creatinine Clr Calc Pharmacy 82.2 ml/min; Est GFR (African American) 117.1 ml/min; Magnesium 1.5 mg/dl (1.7-2.4); Phosphorus 3.5 mg/dl (2.5-4.9); Potassium 3.3 mmol/L (3.5-5.1)
[2022-04-16 08:59] LABS: Hematocrit (blood only) 32.3 % (37.0-47.0); Hemoglobin 10.1 g/dl (12.0-16.0); Mean Corpuscular Hgb Conc 31.3 g/dL (32.0-36.0); Platelet Count 67 K/uL (130-400); RDW Coefficient of Variation 22.1 % (11.5-14.5); RDW Standard Deviation 66.5 fL (36.4-46.3); Red Blood Count 3.89 M/uL (4.20-5.40); White Blood Count 1.42 K/ul (4.8-10.8)
[2022-04-16] MEDS ORDERED: MAGNESIUM SULFATE / D5W 1 GM/100 ML BAG IV ONE (09:01)
[2022-04-16] MEDS ORDERED: POTASSIUM CHLORIDE PWD 20 MEQ PACK PO ONE (09:02)
--- NOTE | 2022-04-16 09:04 | Hospitalist Progress Note ---
Date of Service April 16, 2022 Assessment & Plan (1) Cirrhosis: Plan 57 y/o F with/ hx of alcohol abuse, end-stage liver disease, esophageal varices, portal hypertension, hypothyroidism, peripheral neuropathy, history of convulsions, depression, anxiety, RLS, history of narcotic abusepresented to ER 04/07 with complaint of diffuse abdominal cramping and melena x 5 days. States today vomited red blood x1. She is being managed for the following: GIB (gastrointestinal bleeding): Possible colitis: will use unasyn. In ER vitals stable. H&H: 9.2. Hgb was 8.7 on 03/06/2022. PLT: 137, INR 1.2. Labs around baseline Admitting CT ABD/PELVIS: 1. Diffusely thickened large and small bowel most pronounced at the gastrojejunostomy site. This has progressed in the interval. This could be due to the patient's diffuse edematous state or a nonspecific enterocolitis. 2. No evidence for bowel obstruction. 3. Cirrhosis with splenomegaly. 4. Large volume ascites persists. 5. Additional findings as described above. Stool culture, C. difficile ----> negative. Admitting Blood cultures: negative s/p paracentesis 04/08 - 2L Out, analysis reviewed, f/u 04/08 culture - pending. GI evaled, ppi bid. EGD 04/13 +ve for varices in lower esophagus/no source of bleeding identified/mild portal gastropathy/no gastric varices/ stenotic gastroenteric anastomosis with circumferential erosion. Recs after the scope is resume full liquid diet and UGIS. Palliative evaled, plan for discharge to home w/ hospice after paracentesis. Pain Mx. ---Hospice declined as doesn't qualify for hospice Pt will need to f/u w/ palliative as OP on DC. Pain and SOB improving after paracentesis. Monitor HnH and transfuse for Hb < 7 or symptomatic anemia. c/w unasyn 04/08 -- Augmentin 04/11. c/w PPI IV to PO PPI, f/u GI as OP. Full liq diet resumed and advanced today per GI, advance as sea, monitor HnH. Pt had episode of vomiting (3// evening) Will switch to clear liquid diet, now again on full liquid and feeling okay. D/w GI - Liquids only today, then resume soft mech diet. Encouraged pt to eat small frequent meals Please call with questions while inpt, will d/w advanced GI possibility of endoscopic therapy for gastric outlet stenosis. Cirrhosis: Esophageal varices: Portal hypertensive gastropathy: Pancytopenia: Plan: H/O end-stage liver disease, esophageal varices, portal hypertension, gastric varices s/p embolization Continue rifaximin, lactulose, lasix, spironolactone. Abdominal ascites: Recent [facility] hospitalization 03/02/2022-03/07/2022 and had abdominal paracentesis x 2 with removal of 4 L Abdominal ascites secondary to decompensated alcoholic cirrhosis R/O SBP Diagnostic/therapeutic paracentesis - awaiting culture. f/u GI as OP. Acute hypokalemia: acute on chronic hypokalemia; monitor and replete Chronic pain: h/o narcotic abuse; not on chronic opioids currently. Alcohol abuse: History of alcohol abuse, reports no EtOH intake in the last month, counseled on need for continued alcohol cessation. Continue thiamine and folic acid. DVT Prophylaxis: SCDs due to bleeding DNR/DNI as per discussion with pt Follows with Dr Moya for routine care Dispo: Diet advanced. possibly DC tmrw Admission and Anticipated Discharge Date Admission Date: April 10, 2022 Subjective Patient seen in follow-up of GI bleed and ascites in the setting of/history of end-stage liver disease, pancytopenia, portal hypertensive gastropathy, esophageal varices. Patient lying in bed, on room air, NAD Yesterday had episode of emesis. Diet switched to clear liquid, and then full liquids today as she is feeling better. GI consulted and following, underwent EGD Reports frequent stools even without lactulose Pt denies fever, chills, chest pain, shortness of breath, palpitation/nausea or vomiting at this time. Discussed w/ GI -and she was advised to have smaller portions at a time, may need advance GI for endoscopic treatment Review of Systems Review of Systems: All systems reviewed & are unremarkable except as noted in Subjective Physical Exam Physical Exam: GENERAL: Alert and oriented x3. NAD, on RA. Chronically ill/frail/weak/lean and thin appearing. HEENT: No pallor, no icterus. Pupils equal, round and reactive to light. Oral mucosa moist. NECK: No JVD, no neck masses. HEART: S1 and S2 heard. Regular rate and rhythm. No murmur, no gallop. RESPIRATORY: Normal AP diameter. No accessory muscle use. No wheezing, no crackles. ABDOMEN: Soft, bowel sounds present, has subcu pain pump/no ss of infection, no distention. non tender NEURO: No facial droop. Speech is clear. Obeys simple commands. Moves extremities. EXTREMITIES: No edema, no erythema seen. Results & Data Results & Data ([facility]) Vital Signs (Past 12 Hours) Vital Signs Temp Pulse Pulse Resp BP Pulse Ox O2 Del Method 04/16/22 07:22 37.0 C 70 22 95/60 L 93 Room Air 04/16/22 04:15 36.9 C 60 18 88/55 L 95 Room Air 04/16/22 00:47 66 113/73 04/15/22 22:00 59 L 04/15/22 22:55 36.9 C 66 16 85/41 L 91 Room Air Laboratory Results 04/16/22 04/16/22 04/15/22 Range/Units 07:37 07:37 08:04 WBC 1.42 L 1.47 L (4.8-10.8) K/ul RBC 3.89 L 3.74 L (4.20-5.40) M/uL Hgb 10.1 L 9.7 L (12.0-16.0) g/dl Hct 32.3 L 29.8 L (37.0-47.0) % MCV 83.0 79.7 L (80.0-100.0) fL MCH 26.0 25.9 (25.0-34.0) pg MCHC 31.3 L 32.6 (32.0-36.0) g/dL RDW Std Deviation 66.5 H 63.1 H (36.4-46.3) fL RDW Coeff of Chetan 22.1 H 22.1 H (11.5-14.5) % Plt Count 67 L 56 L (130-400) K/uL Sodium 136 (136-145) mmol/L Potassium 3.3 L (3.5-5.1) mmol/L Chloride 99 (98-107) mmol/L Carbon Dioxide 33 H (21-32) mmol/L Anion Gap 4 (3-11) BUN 7 (6-23) mg/dl Creatinine 0.59 L (0.6-1.2) mg/dl Est Cr Clr Drug Dosing 82.2 ml/min Est GFR ( Amer) 117.1 ml/min Est GFR (Non-Af Amer) 101.0 ml/min BUN/Creatinine Ratio 11.9 (10-20) Glucose 102 H (70-99(Fasting)) mg/dl Calcium 8.8 (8.5-10.1) mg/dl Phosphorus 3.5 (2.5-4.9) mg/dl Magnesium 1.5 L (1.7-2.4) mg/dl Medications Administered Current Inpatient Medications Acetaminophen (Acetaminophen 325 Mg Tab) 650 mg PO Q4H PRN PRN Reason: Pain or Fever Stop: 05/07/22 16:25 Last Admin: 04/10/22 15:16 Dose: 650 mg Amoxicillin/Clavulanate Potassium (Amoxicillin/Clavulanate 875 Mg Tab) 1 tab PO BIDM [facility] Stop: 04/21/22 16:59 Last Admin: 04/16/22 08:38 Dose: 1 tab Lipase/Protease/Amylase (Pancreaze (Lipase 10,500u) Cap) 1 cap PO QID [facility] Stop: 05/07/22 16:59 Last Admin: 04/16/22 08:37 Dose: 1 cap Citalopram Hydrobromide (Citalopram 20 Mg Tab) 20 mg PO QAM [facility] Stop: 05/08/22 08:59 Last Admin: 04/16/22 08:39 Dose: 20 mg Colestipol HCl (Colestipol Hcl 1 Gm Tab) 2 gm PO BID [facility] Stop: 05/07/22 20:59 Last Admin: 04/16/22 08:37 Dose: 2 gm Folic Acid (Folic Acid 1 Mg Tab) 1 mg PO QAM [facility] Stop: 05/08/22 08:59 Last Admin: 04/16/22 08:37 Dose: 1 mg Furosemide (Furosemide 40 Mg Tab) 40 mg PO BID [facility] Stop: 05/08/22 08:59 Last Admin: 04/16/22 08:36 Dose: 40 mg Gabapentin (Gabapentin 100 Mg Cap) 100 mg PO HS [facility] Stop: 05/07/22 20:59 Last Admin: 04/15/22 22:08 Dose: 100 mg Gabapentin (Gabapentin 600 Mg Tab) 600 mg PO HS [facility] Stop: 05/07/22 20:59 Last Admin: 04/15/22 22:10 Dose: 600 mg Hydroxyzine HCl (Hydroxyzine Hcl 25 Mg Tab) 25 mg PO BID PRN PRN Reason: Anxiety Stop: 05/07/22 16:25 Last Admin: 04/11/22 20:03 Dose: 25 mg Magnesium Sulfate/Dextrose (Magnesium Sulfate / D5w) 1 gm in 100 mls @ 50 mls/hr IV ONE ONE Stop: 04/16/22 11:00 Lactulose (Lactulose Syrup 20 Gm/30 Ml Udc) 20 gm PO TID [facility] Stop: 05/07/22 20:59 Last Admin: 04/16/22 08:39 Dose: Not Given Magnesium Oxide (Magnesium Oxide 400 Mg Tab) 400 mg PO BID [facility] Stop: 05/15/22 08:59 Last Admin: 04/16/22 08:36 Dose: 400 mg Midodrine (Midodrine Hcl 2.5 Mg Tab) 5 mg PO TID@0800,1400,1800 [facility] Stop: 05/07/22 17:59 Last Admin: 04/16/22 08:39 Dose: 5 mg Miscellaneous (Non-Formulary Medication: Witch Jeanne Pads (From Store Room)) 1 each N/A 6XD PRN PRN Reason: BLEEDING HEMORRHOID Stop: 05/10/22 21:14 Morphine Sulfate (Morphine Sulfate Ir 15 Mg Tab (Immediate Release)) 15 mg PO Q6H PRN PRN Reason: mod to severe pain Stop: 04/22/22 12:41 Last Admin: 04/16/22 07:12 Dose: 15 mg Ondansetron HCl (Ondansetron Inj 2 Mg/Ml 2 Ml Vial) 4 mg IV Q6H PRN PRN Reason: Nausea Stop: 05/07/22 16:25 Last Admin: 04/15/22 17:15 Dose: 4 mg Pantoprazole Sodium (Pantoprazole 40 Mg Tab) 40 mg PO BID [facility] Stop: 05/13/22 20:59 Last Admin: 04/16/22 08:36 Dose: 40 mg Potassium Chloride (Potassium Chloride Pwd 20 Meq Pack) 40 meq PO ONE ONE Stop: 04/16/22 09:03 Rifaximin (Rifaximin 550 Mg Tablet) 550 mg PO BID [facility] Stop: 05/07/22 20:59 Last Admin: 04/16/22 08:38 Dose: 550 mg Ropinirole HCl (Ropinirole Hcl 0.25 Mg Tablet) 0.25 mg PO HS [facility] Stop: 05/07/22 20:59 Last Admin: 04/15/22 22:09 Dose: 0.25 mg Spironolactone (Spironolactone 100 Mg Tab) 100 mg PO DAILY [facility] Stop: 05/08/22 08:59 Last Admin: 04/16/22 08:38 Dose: 100 mg Thiamine HCl (Thiamine Hcl 100 Mg Tab) 100 mg PO QAM [facility] Stop: 05/08/22 08:59 Last Admin: 04/16/22 08:37 Dose: 100 mg Trazodone HCl (Trazodone Hcl 50 Mg Tab) 50 mg PO QPM [facility] Stop: 05/07/22 20:59 Last Admin: 04/15/22 22:08 Dose: 50 mg (1) Cirrhosis Hepatic cirrhosis type: alcoholic cirrhosis
--- NOTE | 2022-04-16 09:52 | Gastroenterology Progress Note ---
Date of Service April 16, 2022 Assessment & Plan (1) Cirrhosis: Plan: 57 year old female with history of ETOH cirrhosis (abstinent for few months), PHG, esophageal varices s/p banding (MELD 10) admitted for possible GI bleed (hematemesis, melena). EGD yesterday with evidence of nonbleeding varices, UGI series unremarkable, last night she had episode of vomiting after PO intake (notes this was after over-eating) - Will discuss if any further endoscopic procedures are warranted with advanced GI team - Clear liquids this AM - Smaller, more frequent meals - Anti-emetics PRN - No ETOH - Continue Lactulose/Xifaxan - Continue Lasix/Aldactone - Continue PPI - MELD labs every 6 months - HCC Screening every 6 months - OP follow up with regular GI/Hep provider GI will sign off. Thank you for allowing us to participate in the care of this patient. Please call with any acute changes, questions or concerns. Please see addendum below with additional recommendation from my supervising physician. Admission and Anticipated Discharge Date Admission Date: April 10, 2022 Supervising Physician Co-Signing Physician Notes Attg add: I interviewed and examined pt, reviewed chart and labs. Pt with nausea, vomiting after "over-eating." Liquids only today, then resume soft mech diet. Encouraged pt to eat small frequent meals Please call with questions while inpt, will d/w advanced GI possibility of endoscopic therapy for gastric outlet stenosis. Subjective GI was asked to re-evaluate for nausea/vomiting last night. She notes this was after over-eating dinner as she felt hungry. This AM, symptoms resolved, however, yet to eat. No abd pain. No report of black or bloody emesis. Review of Systems Review of Systems: All systems reviewed & are unremarkable except as noted in HPI & below Physical Exam Constitutional: WD/WN, vitals as above Respiratory: normal respiratory effort Cardiovascular: Rate/Rhythm: regular rate Gastrointestinal (Abdomen): normal bowel sounds, soft, nontender, no hepatosplenomegaly Skin: no rashes, warm and dry Results & Data ([facility]) Vital Signs (Past 12 Hours) Vital Signs Temp Pulse Pulse Resp BP Pulse Ox O2 Del Method 04/16/22 07:22 37.0 C 70 22 95/60 L 93 Room Air 04/16/22 04:15 36.9 C 60 18 88/55 L 95 Room Air 04/16/22 00:47 66 113/73 04/15/22 22:00 59 L 04/15/22 22:55 36.9 C 66 16 85/41 L 91 Room Air Laboratory Results 04/16/22 04/16/22 Range/Units 07:37 07:37 WBC 1.42 L (4.8-10.8) K/ul RBC 3.89 L (4.20-5.40) M/uL Hgb 10.1 L (12.0-16.0) g/dl Hct 32.3 L (37.0-47.0) % MCV 83.0 (80.0-100.0) fL MCH 26.0 (25.0-34.0) pg MCHC 31.3 L (32.0-36.0) g/dL RDW Std Deviation 66.5 H (36.4-46.3) fL RDW Coeff of Chetan 22.1 H (11.5-14.5) % Plt Count 67 L (130-400) K/uL Sodium 136 (136-145) mmol/L Potassium 3.3 L (3.5-5.1) mmol/L Chloride 99 (98-107) mmol/L Carbon Dioxide 33 H (21-32) mmol/L Anion Gap 4 (3-11) BUN 7 (6-23) mg/dl Creatinine 0.59 L (0.6-1.2) mg/dl Est Cr Clr Drug Dosing 82.2 ml/min Est GFR ( Amer) 117.1 ml/min Est GFR (Non-Af Amer) 101.0 ml/min BUN/Creatinine Ratio 11.9 (10-20) Glucose 102 H (70-99(Fasting)) mg/dl Calcium 8.8 (8.5-10.1) mg/dl Phosphorus 3.5 (2.5-4.9) mg/dl Magnesium 1.5 L (1.7-2.4) mg/dl (1) Cirrhosis Hepatic cirrhosis type: alcoholic cirrhosis
[2022-04-16] MEDS: GABAPENTIN 100 MG CAP PO SCH (21:21)
[2022-04-16] MEDS: traZODone HCL 50 MG TAB PO SCH (21:21)
[2022-04-16] MEDS: GABAPENTIN 600 MG TAB PO SCH (21:23)
[2022-04-16] MEDS: rOPINIRole HCL 0.25 MG TABLET PO SCH (21:25)
[2022-04-17] MEDS: MoRPHine SULFATE IR 15 MG TAB (IMMEDIATE RELEASE) PO PRN ×4 (02:52→21:57)
--- NOTE | 2022-04-17 07:40 | Hospitalist Progress Note ---
Date of Service April 17, 2022 Assessment & Plan (1) Cirrhosis: Plan 57 y/o F with/ hx of alcohol abuse, end-stage liver disease, esophageal varices, portal hypertension, hypothyroidism, peripheral neuropathy, history of convulsions, depression, anxiety, RLS, history of narcotic abusepresented to ER 04/07 with complaint of diffuse abdominal cramping and melena x 5 days. States today vomited red blood x1. She is being managed for the following: GIB (gastrointestinal bleeding): Possible colitis: will use unasyn. In ER vitals stable. H&H: 9.2. Hgb was 8.7 on 03/06/2022. PLT: 137, INR 1.2. Labs around baseline Admitting CT ABD/PELVIS: 1. Diffusely thickened large and small bowel most pronounced at the gastrojejunostomy site. This has progressed in the interval. This could be due to the patient's diffuse edematous state or a nonspecific enterocolitis. 2. No evidence for bowel obstruction. 3. Cirrhosis with splenomegaly. 4. Large volume ascites persists. 5. Additional findings as described above. Stool culture, C. difficile ----> negative. Admitting Blood cultures: negative s/p paracentesis 04/08 - 2L Out, analysis reviewed, f/u 04/08 culture - pending. GI evaled, ppi bid. EGD 04/13 +ve for varices in lower esophagus/no source of bleeding identified/mild portal gastropathy/no gastric varices/ stenotic gastroenteric anastomosis with circumferential erosion. Recs after the scope is resume full liquid diet and UGIS. Palliative evaled, plan for discharge to home w/ hospice after paracentesis. Pain Mx. ---Hospice declined as doesn't qualify for hospice Pt will need to f/u w/ palliative as OP on DC. Pain and SOB improving after paracentesis. Monitor HnH and transfuse for Hb < 7 or symptomatic anemia. c/w unasyn 04/08 -- Augmentin 04/11. c/w PPI IV to PO PPI, f/u GI as OP. Full liq diet resumed and advanced today per GI, advance as sea, monitor HnH. Pt had episode of vomiting (04/15/ evening) and again this AM (04/17) D/w GI - Encouraged pt to eat small frequent meals, will d/w advanced GI possibility of endoscopic therapy for gastric outlet stenosis. Cirrhosis: Esophageal varices: Portal hypertensive gastropathy: Pancytopenia: Plan: H/O end-stage liver disease, esophageal varices, portal hypertension, gastric varices s/p embolization Continue rifaximin, lactulose, lasix, spironolactone. Abdominal ascites: Recent [facility] hospitalization 03/02/2022-03/07/2022 and had abdominal paracentesis x 2 with removal of 4 L Abdominal ascites secondary to decompensated alcoholic cirrhosis R/O SBP Diagnostic/therapeutic paracentesis - awaiting culture. f/u GI as OP. Acute hypokalemia: acute on chronic hypokalemia; monitor and replete Chronic pain: h/o narcotic abuse; not on chronic opioids currently. Alcohol abuse: History of alcohol abuse, reports no EtOH intake in the last month, counseled on need for continued alcohol cessation. Continue thiamine and folic acid. DVT Prophylaxis: SCDs due to bleeding DNR/DNI as per discussion with pt Follows with Dr Moya for routine care Dispo: Diet advanced. possibly DC tmrw Admission and Anticipated Discharge Date Admission Date: April 10, 2022 Subjective Patient seen in follow-up of GI bleed and ascites in the setting of/history of end-stage liver disease, pancytopenia, portal hypertensive gastropathy, esophageal varices. Patient lying in bed, on room air, NAD GI consulted and following, underwent EGD Reports frequent stools even without lactulose Pt denies fever, chills, chest pain, shortness of breath, palpitation/nausea or vomiting at this time. Was doing better yesterday evening and overnight, emesis this AM. Discussed w/ GI -and she was advised to have smaller portions at a time, may need advance GI for endoscopic treatment Review of Systems Review of Systems: All systems reviewed & are unremarkable except as noted in Subjective Physical Exam Physical Exam: GENERAL: Alert and oriented x3. NAD, on RA. Chronically ill/frail/weak/lean and thin appearing. HEENT: No pallor, no icterus. Pupils equal, round and reactive to light. Oral mucosa moist. NECK: No JVD, no neck masses. HEART: S1 and S2 heard. Regular rate and rhythm. No murmur, no gallop. RESPIRATORY: Normal AP diameter. No accessory muscle use. No wheezing, no crackles. ABDOMEN: Soft, bowel sounds present, has subcu pain pump/no ss of infection, no distention. non tender NEURO: No facial droop. Speech is clear. Obeys simple commands. Moves extremities. EXTREMITIES: No edema, no erythema seen. Results & Data Results & Data ([facility]) Vital Signs (Past 12 Hours) Vital Signs Temp Pulse Pulse Resp BP Pulse Ox O2 Del Method 04/17/22 02:46 37.0 C 75 18 104/67 95 Room Air 04/16/22 23:00 58 L 04/16/22 23:05 36.8 C 69 18 92/63 L 96 Room Air 04/16/22 19:55 37.1 C 64 18 112/61 94 Room Air Laboratory Results 04/17/22 Range/Units 05:44 Sodium 136 (136-145) mmol/L Potassium 4.4 D (3.5-5.1) mmol/L Chloride 101 (98-107) mmol/L Carbon Dioxide 29 (21-32) mmol/L Anion Gap 6 (3-11) BUN 7 (6-23) mg/dl Creatinine 0.61 (0.6-1.2) mg/dl Est Cr Clr Drug Dosing 80.1 ml/min Est GFR ( Amer) 115.8 ml/min Est GFR (Non-Af Amer) 99.9 ml/min BUN/Creatinine Ratio 11.5 (10-20) Glucose 163 H (70-99(Fasting)) mg/dl Calcium 8.8 (8.5-10.1) mg/dl Phosphorus 3.5 (2.5-4.9) mg/dl Magnesium 1.7 (1.7-2.4) mg/dl Medications Administered Current Inpatient Medications Acetaminophen (Acetaminophen 325 Mg Tab) 650 mg PO Q4H PRN PRN Reason: Pain or Fever Stop: 05/07/22 16:25 Last Admin: 04/10/22 15:16 Dose: 650 mg Amoxicillin/Clavulanate Potassium (Amoxicillin/Clavulanate 875 Mg Tab) 1 tab PO BIDM [facility] Stop: 04/21/22 16:59 Last Admin: 04/17/22 08:17 Dose: 1 tab Lipase/Protease/Amylase (Pancreaze (Lipase 10,500u) Cap) 1 cap PO QID [facility] Stop: 05/07/22 16:59 Last Admin: 04/17/22 08:17 Dose: 1 cap Citalopram Hydrobromide (Citalopram 20 Mg Tab) 20 mg PO QAM MICHELLE Stop: 05/08/22 08:59 Last Admin: 04/17/22 08:17 Dose: 20 mg Colestipol HCl (Colestipol Hcl 1 Gm Tab) 2 gm PO BID MICHELLE Stop: 05/07/22 20:59 Last Admin: 04/17/22 08:18 Dose: 2 gm Folic Acid (Folic Acid 1 Mg Tab) 1 mg PO QAM MICHELLE Stop: 05/08/22 08:59 Last Admin: 04/17/22 08:18 Dose: 1 mg Furosemide (Furosemide 40 Mg Tab) 40 mg PO BID MICHELLE Stop: 05/08/22 08:59 Last Admin: 04/17/22 08:18 Dose: 40 mg Gabapentin (Gabapentin 100 Mg Cap) 100 mg PO HS [facility] Stop: 05/07/22 20:59 Last Admin: 04/16/22 21:21 Dose: 100 mg Gabapentin (Gabapentin 600 Mg Tab) 600 mg PO HS [facility] Stop: 05/07/22 20:59 Last Admin: 04/16/22 21:23 Dose: 600 mg Hydroxyzine HCl (Hydroxyzine Hcl 25 Mg Tab) 25 mg PO BID PRN PRN Reason: Anxiety Stop: 05/07/22 16:25 Last Admin: 04/11/22 20:03 Dose: 25 mg Magnesium Sulfate/Dextrose (Magnesium Sulfate / D5w) 1 gm in 100 mls @ 50 mls/hr IV ONE ONE Stop: 04/17/22 10:55 Lactulose (Lactulose Syrup 20 Gm/30 Ml Udc) 20 gm PO TID [facility] Stop: 05/07/22 20:59 Last Admin: 04/17/22 08:19 Dose: Not Given Magnesium Oxide (Magnesium Oxide 400 Mg Tab) 400 mg PO BID MICHELLE Stop: 05/15/22 08:59 Last Admin: 04/17/22 08:18 Dose: 400 mg Midodrine (Midodrine Hcl 2.5 Mg Tab) 5 mg PO TID@0800,1400,1800 [facility] Stop: 05/07/22 17:59 Last Admin: 04/17/22 08:17 Dose: 5 mg Miscellaneous (Non-Formulary Medication: Witch Jeanne Pads (From Store Room)) 1 each N/A 6XD PRN PRN Reason: BLEEDING HEMORRHOID Stop: 05/10/22 21:14 Morphine Sulfate (Morphine Sulfate Ir 15 Mg Tab (Immediate Release)) 15 mg PO Q6H PRN PRN Reason: mod to severe pain Stop: 04/22/22 12:41 Last Admin: 04/17/22 09:03 Dose: 15 mg Ondansetron HCl (Ondansetron Inj 2 Mg/Ml 2 Ml Vial) 4 mg IV Q6H PRN PRN Reason: Nausea Stop: 05/07/22 16:25 Last Admin: 04/17/22 09:03 Dose: 4 mg Pantoprazole Sodium (Pantoprazole 40 Mg Tab) 40 mg PO BID MICHELLE Stop: 05/13/22 20:59 Last Admin: 04/17/22 08:18 Dose: 40 mg Rifaximin (Rifaximin 550 Mg Tablet) 550 mg PO BID MICHELLE Stop: 05/07/22 20:59 Last Admin: 04/17/22 08:18 Dose: 550 mg Ropinirole HCl (Ropinirole Hcl 0.25 Mg Tablet) 0.25 mg PO HS MICHELLE Stop: 05/07/22 20:59 Last Admin: 04/16/22 21:25 Dose: 0.25 mg Spironolactone (Spironolactone 100 Mg Tab) 100 mg PO DAILY MICHELLE Stop: 05/08/22 08:59 Last Admin: 04/17/22 08:18 Dose: 100 mg Thiamine HCl (Thiamine Hcl 100 Mg Tab) 100 mg PO QAM MICHELLE Stop: 05/08/22 08:59 Last Admin: 04/17/22 08:17 Dose: 100 mg Trazodone HCl (Trazodone Hcl 50 Mg Tab) 50 mg PO QPM MICHELLE Stop: 05/07/22 20:59 Last Admin: 04/16/22 21:21 Dose: 50 mg (1) Cirrhosis Hepatic cirrhosis type: alcoholic cirrhosis
[2022-04-17] MEDS: PANCREAZE (LIPASE 10,500U) CAP PO SCH ×4 (08:17→21:56)
[2022-04-17] MEDS: CITALOPRAM 20 MG TAB PO SCH (08:17)
[2022-04-17] MEDS: AMOXICILLIN/CLAVULANATE 875 MG TAB PO SCH ×2 (08:17→18:17)
[2022-04-17] MEDS: THIAMINE HCL 100 MG TAB PO SCH (08:17)
[2022-04-17] MEDS: MIDODRINE HCL 2.5 MG TAB PO SCH ×3 (08:17→18:16)
[2022-04-17] MEDS: COLESTIPOL HCL 1 GM TAB PO SCH ×2 (08:18→21:57)
[2022-04-17] MEDS: MAGNESIUM OXIDE 400 MG TAB PO SCH ×2 (08:18→21:57)
[2022-04-17] MEDS: SPIRONOLACTONE 100 MG TAB PO SCH (08:18)
[2022-04-17] MEDS: rifAXIMin 550 MG TABLET PO SCH ×2 (08:18→21:56)
[2022-04-17] MEDS: PANTOprazole 40 MG TAB PO SCH ×2 (08:18→21:56)
[2022-04-17] MEDS: FOLIC ACID 1 MG TAB PO SCH (08:18)
[2022-04-17] MEDS: FUROSEMIDE 40 MG TAB PO SCH ×2 (08:18→21:56)
[2022-04-17] MEDS: LACTULOSE SYRUP 20 GM/30 ML UDC PO SCH ×3 (08:19→21:57)
[2022-04-17] MEDS: ONDANSETRON INJ 2 MG/ML 2 ML VIAL IV PRN (09:03)
[2022-04-17] MEDS ORDERED: POTASSIUM CHLORIDE PWD 20 MEQ PACK PO ONE (09:30)
[2022-04-17 10:28] LABS: Potassium 4.4 mmol/L (3.5-5.1)
[2022-04-17 10:29] LABS: BUN Creatinine Ratio 11.5 (10-20); Calcium 8.8 mg/dl (8.5-10.1); Creatinine Clr Calc Pharmacy 80.1 ml/min; Est GFR (African American) 115.8 ml/min; Est GFR (Non-African American) 99.9 ml/min; Magnesium 1.7 mg/dl (1.7-2.4); Phosphorus 3.5 mg/dl (2.5-4.9)
[2022-04-17] MEDS ORDERED: MAGNESIUM SULFATE / D5W 1 GM/100 ML BAG IV ONE (11:00)
[2022-04-17] MEDS: rOPINIRole HCL 0.25 MG TABLET PO SCH (21:56)
[2022-04-17] MEDS: traZODone HCL 50 MG TAB PO SCH (21:57)
[2022-04-17] MEDS: GABAPENTIN 100 MG CAP PO SCH (21:57)
[2022-04-17] MEDS: GABAPENTIN 600 MG TAB PO SCH (21:57)
[2022-04-17] MEDS ORDERED: ALUMINUM/MAGNESIUM/SIMETH (MAALOX MAX) 30 ML UDC PO STA (23:10)
[2022-04-18] MEDS: MoRPHine SULFATE IR 15 MG TAB (IMMEDIATE RELEASE) PO PRN ×4 (04:40→23:37)
[2022-04-18 07:57] LABS: BUN Creatinine Ratio 15.5 (10-20); Est GFR (African American) 117.8 ml/min; Est GFR (Non-African American) 101.6 ml/min; Magnesium 1.7 mg/dl (1.7-2.4); Phosphorus 4.2 mg/dl (2.5-4.9); Potassium 3.8 mmol/L (3.5-5.1)
[2022-04-18] MEDS: PANTOprazole 40 MG TAB PO SCH ×2 (09:47→23:21)
[2022-04-18] MEDS: MAGNESIUM OXIDE 400 MG TAB PO SCH ×2 (09:47→23:21)
[2022-04-18] MEDS: COLESTIPOL HCL 1 GM TAB PO SCH ×2 (09:47→23:25)
[2022-04-18] MEDS: rifAXIMin 550 MG TABLET PO SCH ×2 (09:47→23:23)
[2022-04-18] MEDS: PANCREAZE (LIPASE 10,500U) CAP PO SCH ×4 (09:48→23:39)
[2022-04-18] MEDS: AMOXICILLIN/CLAVULANATE 875 MG TAB PO SCH ×2 (09:48→17:32)
[2022-04-18] MEDS: FUROSEMIDE 40 MG TAB PO SCH ×2 (09:48→23:24)
[2022-04-18] MEDS: FOLIC ACID 1 MG TAB PO SCH (09:49)
[2022-04-18] MEDS: CITALOPRAM 20 MG TAB PO SCH (09:49)
[2022-04-18] MEDS: LACTULOSE SYRUP 20 GM/30 ML UDC PO SCH ×3 (09:49→23:23)
[2022-04-18] MEDS: THIAMINE HCL 100 MG TAB PO SCH (09:49)
[2022-04-18] MEDS: MIDODRINE HCL 2.5 MG TAB PO SCH ×3 (09:49→17:33)
[2022-04-18] MEDS: SPIRONOLACTONE 100 MG TAB PO SCH (09:49)
[2022-04-18] MEDS: ONDANSETRON INJ 2 MG/ML 2 ML VIAL IV PRN ×2 (09:54→17:34)
--- NOTE | 2022-04-18 13:09 | Hospitalist Progress Note ---
Date of Service April 18, 2022 Assessment & Plan (1) Cirrhosis: Plan 57 y/o F with/ hx of alcohol abuse, end-stage liver disease, esophageal varices, portal hypertension, hypothyroidism, peripheral neuropathy, history of convulsions, depression, anxiety, RLS, history of narcotic abusepresented to ER 04/07 with complaint of diffuse abdominal cramping and melena x 5 days. States today vomited red blood x1. She is being managed for the following: GIB (gastrointestinal bleeding): Possible colitis: will use unasyn. In ER vitals stable. H&H: 9.2. Hgb was 8.7 on 03/06/2022. PLT: 137, INR 1.2. Labs around baseline Admitting CT ABD/PELVIS: 1. Diffusely thickened large and small bowel most pronounced at the gastrojejunostomy site. This has progressed in the interval. This could be due to the patient's diffuse edematous state or a nonspecific enterocolitis. 2. No evidence for bowel obstruction. 3. Cirrhosis with splenomegaly. 4. Large volume ascites persists. 5. Additional findings as described above. Stool culture, C. difficile ----> negative. Admitting Blood cultures: negative s/p paracentesis 04/08 - 2L Out, analysis reviewed, f/u 04/08 culture - pending. GI evaled, ppi bid. EGD 04/13 +ve for varices in lower esophagus/no source of bleeding identified/mild portal gastropathy/no gastric varices/ stenotic gastroenteric anastomosis with circumferential erosion. Recs after the scope is resume full liquid diet and UGIS. Palliative evaled, plan for discharge to home w/ hospice after paracentesis. Pain Mx. ---Hospice declined as doesn't qualify for hospice Pt will need to f/u w/ palliative as OP on DC. Pain and SOB improving after paracentesis. Monitor HnH and transfuse for Hb < 7 or symptomatic anemia. c/w unasyn 04/08 -- Augmentin 04/11. c/w PPI IV to PO PPI, f/u GI as OP. Full liq diet resumed and advanced today per GI, advance as sea, monitor HnH. Pt had episode of vomiting (04/15/ evening) and again this AM (04/17) D/w GI - Encouraged pt to eat small frequent meals, will d/w advanced GI possibility of endoscopic therapy for gastric outlet stenosis. Cirrhosis: Esophageal varices: Portal hypertensive gastropathy: Pancytopenia: Plan: H/O end-stage liver disease, esophageal varices, portal hypertension, gastric varices s/p embolization Continue rifaximin, lactulose, lasix, spironolactone. Abdominal ascites: Recent [facility] hospitalization 03/02/2022-03/07/2022 and had abdominal paracentesis x 2 with removal of 4 L Abdominal ascites secondary to decompensated alcoholic cirrhosis R/O SBP Diagnostic/therapeutic paracentesis - awaiting culture. f/u GI as OP. Acute hypokalemia: acute on chronic hypokalemia; monitor and replete Chronic pain: h/o narcotic abuse; not on chronic opioids currently. Alcohol abuse: History of alcohol abuse, reports no EtOH intake in the last month, counseled on need for continued alcohol cessation. Continue thiamine and folic acid. DVT Prophylaxis: SCDs due to bleeding DNR/DNI as per discussion with pt Follows with Dr Moya for routine care Dispo: Diet advanced. possibly DC tmrw Admission and Anticipated Discharge Date Admission Date: April 10, 2022 Subjective Patient seen in follow-up of GI bleed and ascites in the setting of/history of end-stage liver disease, pancytopenia, portal hypertensive gastropathy, esophageal varices. Patient lying in bed, on room air, NAD GI consulted and following, underwent EGD Pt denies fever, chills, chest pain, shortness of breath, palpitation. Last night and this AM again having emesis. Pt reports hardly eating anything and sending the food back. Discussed w/ GI -and she was advised to have smaller portions at a time, may need advance GI for endoscopic treatment Review of Systems Review of Systems: All systems reviewed & are unremarkable except as noted in Subjective Physical Exam Physical Exam: GENERAL: Alert and oriented x3. NAD, on RA. Chronically ill/frail/weak/lean and thin appearing. HEENT: No pallor, no icterus. Pupils equal, round and reactive to light. Oral mucosa moist. NECK: No JVD, no neck masses. HEART: S1 and S2 heard. Regular rate and rhythm. No murmur, no gallop. RESPIRATORY: Normal AP diameter. No accessory muscle use. No wheezing, no crackles. ABDOMEN: Soft, bowel sounds present, has subcu pain pump/no ss of infection, no distention. non tender NEURO: No facial droop. Speech is clear. Obeys simple commands. Moves extremities. EXTREMITIES: No edema, no erythema seen. Results & Data Results & Data ([facility]) Vital Signs (Past 12 Hours) Vital Signs Temp Pulse Pulse Resp BP Pulse Ox O2 Del Method 04/18/22 11:39 36.9 C 60 16 96/51 L 91 Room Air 04/18/22 07:48 60 04/18/22 07:45 36.8 C 61 18 100/66 93 Room Air 04/18/22 02:46 36.8 C 61 16 94/58 L 94 Room Air Laboratory Results 04/18/22 Range/Units 07:07 Sodium 136 (136-145) mmol/L Potassium 3.8 (3.5-5.1) mmol/L Chloride 99 (98-107) mmol/L Carbon Dioxide 34 H (21-32) mmol/L Anion Gap 3 (3-11) BUN 9 (6-23) mg/dl Creatinine 0.58 L (0.6-1.2) mg/dl Est Cr Clr Drug Dosing 84.0 ml/min Est GFR ( Amer) 117.8 ml/min Est GFR (Non-Af Amer) 101.6 ml/min BUN/Creatinine Ratio 15.5 (10-20) Glucose 95 (70-99(Fasting)) mg/dl Calcium 9.0 (8.5-10.1) mg/dl Phosphorus 4.2 (2.5-4.9) mg/dl Magnesium 1.7 (1.7-2.4) mg/dl Medications Administered Current Inpatient Medications Acetaminophen (Acetaminophen 325 Mg Tab) 650 mg PO Q4H PRN PRN Reason: Pain or Fever Stop: 05/07/22 16:25 Last Admin: 04/10/22 15:16 Dose: 650 mg Amoxicillin/Clavulanate Potassium (Amoxicillin/Clavulanate 875 Mg Tab) 1 tab PO BIDM [facility] Stop: 04/21/22 16:59 Last Admin: 04/18/22 09:48 Dose: 1 tab Lipase/Protease/Amylase (Pancreaze (Lipase 10,500u) Cap) 1 cap PO QID [facility] Stop: 05/07/22 16:59 Last Admin: 04/18/22 09:48 Dose: 1 cap Citalopram Hydrobromide (Citalopram 20 Mg Tab) 20 mg PO QAM [facility] Stop: 05/08/22 08:59 Last Admin: 04/18/22 09:49 Dose: 20 mg Colestipol HCl (Colestipol Hcl 1 Gm Tab) 2 gm PO BID MICHELLE Stop: 05/07/22 20:59 Last Admin: 04/18/22 09:47 Dose: 2 gm Folic Acid (Folic Acid 1 Mg Tab) 1 mg PO QAM MICHELLE Stop: 05/08/22 08:59 Last Admin: 04/18/22 09:49 Dose: 1 mg Furosemide (Furosemide 40 Mg Tab) 40 mg PO BID [facility] Stop: 05/08/22 08:59 Last Admin: 04/18/22 09:48 Dose: 40 mg Gabapentin (Gabapentin 100 Mg Cap) [address] [facility] Stop: 05/07/22 20:59 Last Admin: 04/17/22 21:57 Dose: 100 mg Gabapentin (Gabapentin 600 Mg Tab) [address] [facility] Stop: 05/07/22 20:59 Last Admin: 04/17/22 21:57 Dose: 600 mg Hydroxyzine HCl (Hydroxyzine Hcl 25 Mg Tab) 25 mg PO BID PRN PRN Reason: Anxiety Stop: 05/07/22 16:25 Last Admin: 04/11/22 20:03 Dose: 25 mg Lactulose (Lactulose Syrup 20 Gm/30 Ml Udc) 20 gm PO TID MICHELLE Stop: 05/07/22 20:59 Last Admin: 04/18/22 09:49 Dose: Not Given Magnesium Oxide (Magnesium Oxide 400 Mg Tab) 400 mg PO BID MICHELLE Stop: 05/15/22 08:59 Last Admin: 04/18/22 09:47 Dose: 400 mg Midodrine (Midodrine Hcl 2.5 Mg Tab) 5 mg PO TID@0800,1400,1800 [facility] Stop: 05/07/22 17:59 Last Admin: 04/18/22 09:49 Dose: 5 mg Miscellaneous (Non-Formulary Medication: Witch Jeanne Pads (From Store Room)) 1 each N/A 6XD PRN PRN Reason: BLEEDING HEMORRHOID Stop: 05/10/22 21:14 Morphine Sulfate (Morphine Sulfate Ir 15 Mg Tab (Immediate Release)) 15 mg PO Q6H PRN PRN Reason: mod to severe pain Stop: 04/22/22 12:41 Last Admin: 04/18/22 10:46 Dose: 15 mg Ondansetron HCl (Ondansetron Inj 2 Mg/Ml 2 Ml Vial) 4 mg IV Q6H PRN PRN Reason: Nausea Stop: 05/07/22 16:25 Last Admin: 04/18/22 09:54 Dose: 4 mg Pantoprazole Sodium (Pantoprazole 40 Mg Tab) 40 mg PO BID MICHELLE Stop: 05/13/22 20:59 Last Admin: 04/18/22 09:47 Dose: 40 mg Rifaximin (Rifaximin 550 Mg Tablet) 550 mg PO BID MICHELLE Stop: 05/07/22 20:59 Last Admin: 04/18/22 09:47 Dose: 550 mg Ropinirole HCl (Ropinirole Hcl 0.25 Mg Tablet) 0.25 mg PO HS MICHELLE Stop: 05/07/22 20:59 Last Admin: 04/17/22 21:56 Dose: 0.25 mg Spironolactone (Spironolactone 100 Mg Tab) 100 mg PO DAILY MICHELLE Stop: 05/08/22 08:59 Last Admin: 04/18/22 09:49 Dose: 100 mg Thiamine HCl (Thiamine Hcl 100 Mg Tab) 100 mg PO QAM MICHELLE Stop: 05/08/22 08:59 Last Admin: 04/18/22 09:49 Dose: 100 mg Trazodone HCl (Trazodone Hcl 50 Mg Tab) 50 mg PO QPM MICHELLE Stop: 05/07/22 20:59 Last Admin: 04/17/22 21:57 Dose: 50 mg (1) Cirrhosis Hepatic cirrhosis type: alcoholic cirrhosis
[2022-04-18] MEDS: GABAPENTIN 100 MG CAP PO SCH (23:22)
[2022-04-18] MEDS: traZODone HCL 50 MG TAB PO SCH (23:23)
[2022-04-18] MEDS: rOPINIRole HCL 0.25 MG TABLET PO SCH (23:24)
[2022-04-18] MEDS: GABAPENTIN 600 MG TAB PO SCH (23:25)
[2022-04-19] MEDS: MoRPHine SULFATE IR 15 MG TAB (IMMEDIATE RELEASE) PO PRN ×2 (05:37→11:34)
[2022-04-19 07:28] LABS: Hematocrit (blood only) 31.1 % (37.0-47.0); Hemoglobin 9.7 g/dl (12.0-16.0); Mean Corpuscular Hemoglobin 25.7 pg (25.0-34.0); Mean Corpuscular Hgb Conc 31.2 g/dL (32.0-36.0); Mean Corpuscular Volume 82.5 fL (80.0-100.0); Mean Platelet Volume 10.5 fL (9.4-12.4); Platelet Count 78 K/uL (130-400); RDW Coefficient of Variation 21.7 % (11.5-14.5); RDW Standard Deviation 65.5 fL (36.4-46.3); Red Blood Count 3.77 M/uL (4.20-5.40); White Blood Count 1.58 K/ul (4.8-10.8)
[2022-04-19 07:49] LABS: Calcium 8.9 mg/dl (8.5-10.1); Creatinine Clr Calc Pharmacy 88.6 ml/min; Est GFR (African American) 116.4 ml/min; Est GFR (Non-African American) 100.5 ml/min; Magnesium 1.9 mg/dl (1.7-2.4); Phosphorus 3.7 mg/dl (2.5-4.9); Potassium 3.3 mmol/L (3.5-5.1)
[2022-04-19] MEDS: THIAMINE HCL 100 MG TAB PO SCH (08:55)
[2022-04-19] MEDS: CITALOPRAM 20 MG TAB PO SCH (08:55)
[2022-04-19] MEDS: LACTULOSE SYRUP 20 GM/30 ML UDC PO SCH ×3 (08:56→14:20)
[2022-04-19] MEDS: COLESTIPOL HCL 1 GM TAB PO SCH (08:56)
[2022-04-19] MEDS: MIDODRINE HCL 2.5 MG TAB PO SCH ×2 (08:56→14:20)
[2022-04-19] MEDS: MAGNESIUM OXIDE 400 MG TAB PO SCH (08:56)
[2022-04-19] MEDS: FOLIC ACID 1 MG TAB PO SCH (08:56)
[2022-04-19] MEDS: AMOXICILLIN/CLAVULANATE 875 MG TAB PO SCH (08:56)
[2022-04-19] MEDS: PANTOprazole 40 MG TAB PO SCH (08:56)
[2022-04-19] MEDS: PANCREAZE (LIPASE 10,500U) CAP PO SCH ×2 (08:56→12:46)
[2022-04-19] MEDS: rifAXIMin 550 MG TABLET PO SCH (08:57)
[2022-04-19] MEDS: SPIRONOLACTONE 100 MG TAB PO SCH (09:01)
[2022-04-19] MEDS ORDERED: POTASSIUM CHLORIDE PWD 20 MEQ PACK PO ONE (09:01)
[2022-04-19] MEDS: FUROSEMIDE 40 MG TAB PO SCH (09:01)
--- NOTE | 2022-04-19 11:45 | Gastroenterology Progress Note ---
Date of Service April 19, 2022 Assessment & Plan (1) Cirrhosis: (2) Vomiting: Plan 57 year old female with history of RYB, ETOH cirrhosis (abstinent for few months), PHG, esophageal varices s/p banding (MELD 10) admitted for possible GI bleed (hematemesis, melena). EGD last week w/ evidence of nonbleeding varices, also had stenotic gastroenteric anastomosis. F/u UGI series unremarkable. Yesterday she had reported bouts of emesis for which we are asked to re-see her today. Emesis has not recurred today and she says she is improved; she tolerated cereal, yulisa josesito and crackers for breakfast. On exam, abd soft, nontender. She has chronic vomiting at baseline. - After discussion w/ advanced endoscopist, will plan OP EUS-guided Axios stent placement to treat her stenotic anastomosis. This will be arranged for her at [facility]. - In the mean time, we encouraged pt to eat smaller, more frequent meals, mechanical soft diet or liquids as tolerated - Anti-emetics PRN - Avoid ETOH - Continue Xifaxan - She doesn't use Lactulose as she has chronic loose stools at baseline; on exam, does not have evidence of encephalopathy - Continue Lasix/Aldactone - Continue PPI - MELD labs every 6 months - HCC Screening every 6 months - OP follow up with regular GI/Hep provider - she was encouraged to establish with one as she doesn't yet have one - GI will sign off, please call with questions Admission and Anticipated Discharge Date Admission Date: April 10, 2022 Supervising Physician Co-Signing Physician Notes I personally saw and evaluated the patient on 04/19/2022 with Radha Castellon PA-C and agree with her recommendations and plan of care. Patient is feeling well today. Is tolerating a diet per her report. Will arrange outpatient axios stent placement at [facility] for treatment of pyloric stenosis. Discussed with Dr. Correa. Follow up outpatient with hepatology. Physical exam- abdomen soft, non-tender, normoactive bowel sounds. Jennifer Kaiser, Gastroenterology and Hepatology Subjective Patient seen and examined, chart reviewed. No acute events overnight. We were asked to re-see this pt for reports of emesis yesterday. Pt states yesterday "wasn't a good day" and she had some vomiting. Today, has had no further vomiting and tolerated a bowl of cereal, Yulisa Josesito and crackers today for breakfast. She tells me she has chronic vomiting at baseline - can vomit several times a day; has had this for years. Can be postprandial but it isn't always so. Has chronic loose stools at baseline which is unchanged. Denies hematemesis, melena, hematochezia, abd pain, fever, chills, leg edema, CP, SOB. Review of Systems Review of Systems: All systems reviewed & are unremarkable except as noted in HPI & below Physical Exam Constitutional: + chronically ill, NAD Eyes: PERRL, conjunctivae normal, anicteric sclerae ENMT: external ear and nose normal, oropharynx normal Respiratory: normal respiratory effort, lungs clear to auscultation Cardiovascular: RRR Gastrointestinal (Abdomen): soft, nontender, nondistended, mild ascites, + pain pump in place RUQ. + BS x 4 quadrants Skin: no rashes, warm and dry Psychiatric: A+Ox3, euthymic affect No asterixis Results & Data ([facility]) Vital Signs (Past 12 Hours) Vital Signs Temp Pulse Pulse Resp BP Pulse Ox O2 Del Method 04/19/22 09:00 Room Air 04/19/22 07:30 58 L 04/19/22 07:31 37.0 C 65 18 80/50 L 92 Room Air 04/19/22 03:57 59 L 04/19/22 03:23 36.8 C 68 16 89/48 L 94 Room Air 04/19/22 01:14 Room Air Laboratory Results 04/19/22 04/19/22 Range/Units 06:41 06:41 WBC 1.58 L (4.8-10.8) K/ul RBC 3.77 L (4.20-5.40) M/uL Hgb 9.7 L (12.0-16.0) g/dl Hct 31.1 L (37.0-47.0) % MCV 82.5 (80.0-100.0) fL MCH 25.7 (25.0-34.0) pg MCHC 31.2 L (32.0-36.0) g/dL RDW Std Deviation 65.5 H (36.4-46.3) fL RDW Coeff of Chetan 21.7 H (11.5-14.5) % Plt Count 78 L (130-400) K/uL MPV 10.5 (9.4-12.4) fL Sodium 137 (136-145) mmol/L Potassium 3.3 L (3.5-5.1) mmol/L Chloride 99 (98-107) mmol/L Carbon Dioxide 34 H (21-32) mmol/L Anion Gap 4 (3-11) BUN 9 (6-23) mg/dl Creatinine 0.60 (0.6-1.2) mg/dl Est Cr Clr Drug Dosing 88.6 ml/min Est GFR ( Amer) 116.4 ml/min Est GFR (Non-Af Amer) 100.5 ml/min BUN/Creatinine Ratio 15.0 (10-20) Glucose 119 H (70-99(Fasting)) mg/dl Calcium 8.9 (8.5-10.1) mg/dl Phosphorus 3.7 (2.5-4.9) mg/dl Magnesium 1.9 (1.7-2.4) mg/dl (1) Cirrhosis Ascites presence: with ascites Hepatic cirrhosis type: alcoholic cirrhosis Qualified Code(s): K70.31 - Alcoholic cirrhosis of liver with ascites
--- NOTE | 2022-04-19 15:36 | Palliative Care Progress Note ---
Date of Service April 19, 2022 Assessment & Plan (1) Palliative care by specialist: (2) Abdominal pain: (3) Gastrointestinal hemorrhage with hematemesis: (4) Alcoholism with alcohol dependence: (5) Opioid abuse: Plan * no change to pain mgt plan * She is still desiring hospice but I advised if pursuing OP procedure, would not be eligible for hospice until after that is done. she is open to this and will follow up with PCP to coordinate. Hospice dx is end stage liver failure Yuli Thomas DNP Clinical Director, Palliative Medicine Admission and Anticipated Discharge Date Admission Date: April 10, 2022 Subjective poss dc today has another OP procedure planned. pain well managed no acute issues trying to figure out what to eat without causing more distress Review of Systems Review of Systems: All systems reviewed & are unremarkable except as noted in Subjective Physical Exam Constitutional: + ill appearing, + thin and + frail appearing Eyes: PERRL and EOM intact bilaterally ENMT: Mouth: + dry oral mucous membranes Neck: trachea midline Thyroid: normal thyroid Respiratory: normal respiratory effort and able to speak in complete sentences Auscultation: lungs clear to auscultation bilaterally Cardiovascular: Rate/Rhythm: regular rate and regular rhythm Gastrointestinal (Abdomen): Inspection/Auscultation: + abdomen distended Percussion/Palpation: + abdomen tender, + abdomen rigid and + dullness to percussion Musculoskeletal: Head/Neck/Chest: normocephalic and head atraumatic antalgic gait, +walker Skin: + turgor decreased and + dry skin Neurologic: normal touch/pain/proprioception and awake Psychiatric: Orientation: alert and oriented x 3 Eye Contact: + fair eye contact Affect: + anxious affect and + tearful affect Mood: + anxious mood Insight: good insight Judgment: + fair judgement Results & Data ([facility]) Vital Signs (Past 12 Hours) Vital Signs Temp Pulse Pulse Resp BP BP Pulse Ox 04/19/22 15:09 37.1 C 62 18 94/51 L 101/54 L 96 04/19/22 11:30 37.1 C 62 18 101/54 L 96 04/19/22 09:00 04/19/22 07:30 58 L 04/19/22 07:31 37.0 C 65 18 80/50 L 92 04/19/22 03:57 59 L O2 Del Method 04/19/22 15:09 04/19/22 11:30 Room Air 04/19/22 09:00 Room Air 04/19/22 07:30 04/19/22 07:31 Room Air 04/19/22 03:57 PG Care Time/CCT Total # of Minutes Spent Total Time Spent: 50 Total Time Spent with Patient: Total time spent is greater than 50% in coordination of care (as documented) at patient's floor/unit and/or counseling patient: Coding [place] [address] SUB INP/OBS CARE 3/50MIN Patient Type Established History Detailed Exam Detailed Medical Decision Making Moderate Complexity Diagnoses Palliative care by specialist Z51.5 Abdominal pain R10.9 Gastrointestinal hemorrhage with hematemesis K92.0 Alcoholism with alcohol dependence F10.230 Complication of substance-induced condition: uncomplicated Substance use status: in withdrawal Opioid abuse F11.10 (4) Alcoholism with alcohol dependence Complication of substance-induced condition: uncomplicated Substance use status: in withdrawal Qualified Code(s): F10.230 - Alcohol dependence with withdrawal, uncomplicated
--- NOTE | 2022-04-19 15:52 | Discharge Summary ---
Date of Service April 19, 2022 Discharge Exam GENERAL: Alert and oriented x3. NAD, on RA. Chronically ill/frail/weak/lean and thin appearing. HEENT: No pallor, no icterus. Pupils equal, round and reactive to light. Oral mucosa moist. NECK: No JVD, no neck masses. HEART: S1 and S2 heard. Regular rate and rhythm. No murmur, no gallop. RESPIRATORY: Normal AP diameter. No accessory muscle use. No wheezing, no crackles. ABDOMEN: Soft, bowel sounds present, has subcu pain pump/no ss of infection, no distention. non tender NEURO: No facial droop. Speech is clear. Obeys simple commands. Moves extremities. EXTREMITIES: No edema, no erythema seen. Discharge Data Allergies Allergy/AdvReac Type Severity Reaction Status Date / Time diphenhydramine Allergy Severe seizures/it Verified 04/07/22 15:13 mya/tremo rs bupropion Allergy Intermediate Palpitation Verified 04/07/22 15:13 s clarithromycin Allergy Intermediate HIVES Verified 04/07/22 15:13 aspirin Allergy Mild hives/ringing Verified 04/07/22 15:13 of ears oxaprozin Allergy Mild nausea/vomi Verified 04/07/22 15:13 ting salicylates Allergy Mild ringing in Verified 04/07/22 15:13 ears/hives Consultations 04/07/22 16:26 Consult Gastroenterology Routine 04/08/22 08:54 Consult Palliative Care Routine Procedures Performed Operation Date: 04/13/22 16:05 Actual Procedures p Esophagogastroduodenoscopy(Not Applicable) - Aure Choi MD Ordered Studies 04/07/22 08:53 CT abd pelvis IV con only Stat 04/07/22 12:36 CT chest diagnostic wo con Stat 04/08/22 00:00 US paracentesis abd w/image Routine Hospital Course (1) Cirrhosis: Plan 57 y/o F with/ hx of alcohol abuse, end-stage liver disease, esophageal varices, portal hypertension, hypothyroidism, peripheral neuropathy, history of convulsions, depression, anxiety, RLS, history of narcotic abusepresented to ER 04/07 with complaint of diffuse abdominal cramping and melena x 5 days. States today vomited red blood x1. She is being managed for the following: GIB (gastrointestinal bleeding): Possible colitis: will use unasyn. In ER vitals stable. H&H: 9.2. Hgb was 8.7 on 03/06/2022. PLT: 137, INR 1.2. Labs around baseline Admitting CT ABD/PELVIS: 1. Diffusely thickened large and small bowel most pronounced at the gastrojejunostomy site. This has progressed in the interval. This could be due to the patient's diffuse edematous state or a nonspecific enterocolitis. 2. No evidence for bowel obstruction. 3. Cirrhosis with splenomegaly. 4. Large volume ascites persists. 5. Additional findings as described above. Stool culture, C. difficile ----> negative. Admitting Blood cultures: negative s/p paracentesis 04/08 - 2L Out, analysis reviewed, f/u 04/08 culture - pending. GI evaled, ppi bid. EGD 04/13 +ve for varices in lower esophagus/no source of bleeding identified/mild portal gastropathy/no gastric varices/ stenotic gastroenteric anastomosis with circumferential erosion. Recs after the scope is resume full liquid diet and UGIS. Palliative evaled, plan for discharge to home w/ hospice after paracentesis. Pain Mx. ---Hospice declined as doesn't qualify for hospice Pt will need to f/u w/ palliative as OP on DC. Pain and SOB improving after paracentesis. Monitor HnH and transfuse for Hb < 7 or symptomatic anemia. c/w unasyn 04/08 -- Augmentin 04/11. c/w PPI IV to PO PPI, f/u GI as OP. Full liq diet resumed and advanced today per GI, advance as sea, monitor HnH. Pt had episode of vomiting (3/2/ evening) and again this AM (3/4) D/w GI - Encouraged pt to eat small frequent meals, will d/w advanced GI possibility of endoscopic therapy for gastric outlet stenosis. Cirrhosis: Esophageal varices: Portal hypertensive gastropathy: Pancytopenia: Plan: H/O end-stage liver disease, esophageal varices, portal hypertension, gastric varices s/p embolization Continue rifaximin, lactulose, lasix, spironolactone. Abdominal ascites: Recent [facility] hospitalization 03/02/2022-03/07/2022 and had abdominal paracentesis x 2 with removal of 4 L Abdominal ascites secondary to decompensated alcoholic cirrhosis R/O SBP Diagnostic/therapeutic paracentesis - awaiting culture. f/u GI as OP. Acute hypokalemia: acute on chronic hypokalemia; monitor and replete Chronic pain: h/o narcotic abuse; not on chronic opioids currently. Alcohol abuse: History of alcohol abuse, reports no EtOH intake in the last tue, counseled on need for continued alcohol cessation. Continue thiamine and folic acid. DVT Prophylaxis: SCDs due to bleeding DNR/DNI as per discussion with pt Follows with Dr Moya for routine care Dispo: Diet advanced. possibly DC tmrw Discharge Plan Discharge Items Patient Disposition: Home - Home Health Services Reason For Visit: GI BLEED Discharge Diagnosis: GI bleed Colitis Abdominal pain, n/v Ascites in the background of cirrhosis and portal hypertensive gastropathy Activity: Per Instructions section Non-emergency contact: Primary Care Provider and [employer] Call non-emergency contact if: you have any medication questions, your symptoms worsen, your pain is not controlled and your temperature is above 101 Follow-up/Referrals: Filiberto Moya [Primary Care Provider] - 04/21/22 10:15 am Diet: Low Fiber and Low Sodium (2gm) Diet Texture: Mechanical soft (ground) Diet Comment: Recommend liquid/soft diet, eat very small portions at a time, as tolerated Addtl Attending Provider Instructions: Follow-up with your primary care physician and gastroenterology. Gastroenterology will contact you about procedure/stent placement that is planed for you to be done in [facility]. Follow-up on the final culture results of your peritoneal fluid at your next visit with PCP. For your history of cirrhosis, continue to take your prior medications as before and make sure to follow-up with gastroenterology/hepatology. For your pain, you will need to follow up with your primary care doctor, pain management, or palliative medicine. You are being discharged on pain medication only for few days, you will need further evaluation for further need for pain management/prescription. Recommend taking potassium supplement, as prescribed. Your primary care doctor can recheck your potassium levels. Pending Studies at Discharge: Yes (Peritoneal fluid culture final results) Stand-Alone Forms: My [employer], Smoking Cessation Medications and DC Order Prescriptions: New morphine 15 mg Tablet 15 mg PO Q6H PRN (Reason: pain) Qty: 10 0RF pantoprazole 40 mg Tablet,Delayed Release (Dr/Ec) 40 mg PO BID Qty: 60 0RF potassium chloride 20 mEq tablet extended release 20 meq PO BID Qty: 14 0RF Continued gabapentin 100 mg capsule 100 mg PO HS Rx Instructions: take along with 600mg = 700mg diclofenac sodium 1 % gel 1 ea TOPICAL BID PRN (Reason: Pain) magnesium oxide 400 mg (241.3 mg magnesium) Tablet 400 mg PO QAM Qty: 30 0RF thiamine HCl (vitamin B1) 100 mg Tablet 100 mg PO QAM Qty: 30 0RF folic acid 1 mg Tablet 1 mg PO QAM Qty: 30 0RF furosemide 40 mg tablet 40 mg PO BID Qty: 60 0RF gabapentin 600 mg tablet 600 mg PO HS Qty: 30 0RF Rx Instructions: take along with 100mg trazodone 50 mg tablet 50 mg PO QPM Qty: 30 0RF spironolactone 100 mg tablet 100 mg PO DAILY Qty: 30 0RF midodrine 5 mg tablet 5 mg PO TID Qty: 90 0RF Rx Instructions: do not give last dose of day after 6PM or within 4 hrs of bedtime citalopram 20 mg tablet 20 mg PO QAM Qty: 30 0RF ropinirole 0.25 mg tablet 0.25 mg PO HS Qty: 30 0RF lidocaine 5 % adhesive patch,medicated 1 patch transdermal QAM PRN (Reason: Pain) Qty: 15 0RF hydroxyzine HCl 25 mg tablet 25 mg PO BID PRN (Reason: Anxiety) Qty: 30 0RF colestipol 1 gram Tablet 2 g PO BID 30 Days Qty: 120 0RF lactulose 10 gram/15 mL solution 30 ml PO TID Qty: 946 0RF Rx Instructions: To ensure 3 Bowel movement per day. Can hold off further doses once 3 bowel movement is achieved Xifaxan 550 mg tablet 550 mg PO BID Qty: 60 0RF Creon 36,000-114,000- 180,000 unit Capsule,Delayed Release(Dr/Ec) 1 cap PO QID Qty: 120 0RF ondansetron 4 mg tablet,disintegrating 4 mg PO BID PRN (Reason: nausea and vomiting) Qty: 14 0RF Discontinued potassium chloride 10 mEq tablet,ER particles/crystals 10 meq PO DAILY Qty: 30 0RF omeprazole 40 mg capsule,delayed release(DR/EC) 40 mg PO DAILY Qty: 30 0RF Discharge Orders: Discharge Order (Routine); Ordered 04/19/22 Ordered By: Anthony Mayer Admission Data Admit Date/Time: 04/10/22 08:48 Attending Provider: Anthony Mayer Admit Provider: Jeannette Simon I. Primary Care Provider: Filiberto Moya Other Providers: Noble Vidal ; Sasha Shipman ; [facility],Home Healthcare ; Salud Dinh Other Interventions: Discharge Summary Assessment (RN) Last Done: 04/19/22 15:09
== END 2022-04-19 15:30 | disposition home or self-care (01) | DRG 433 ==
LOC: 2W 08:47 → ED 08:47 → SUATTDRO 15:20 → 2W 16:13 → SUATTDRO 04-10 08:48 → 2W 04-18 20:13

== ENCOUNTER 2022-05-18 15:53 | Observation (INO) ==
[2022-05-18] MEDS ORDERED: ONDANSETRON INJ 2 MG/ML 2 ML VIAL IV STA (16:03)
--- NOTE | 2022-05-18 16:03 | ED Triage Note ---
Date of Service May 18, 2022 History of Present Illness This patient was briefly evaluated while in triage. An abbreviated physical exam was performed. This patient is a 57-year-old Female who p resents to the ED for evaluation of progressively worsening abdominal swelling and pain. The patient reports that she had her last paracentesis approxi-1 month ago. She thinks that she let her swelling go too long. She rates her discomfort a 9 out of 10. Physical Exam CONSTITUTIONAL: Healthy and well nourished. Patient appears in moderate discomfort HEENT: No scleral icterus or conjunctival injection/pallor RESPIRATORY: Clear to auscultation bilaterally with no wheezing, crackles, rhonchi or stridor. CARDIOVASCULAR: Regular rate and rhythm with no murmurs, rubs or gallops. GASTROINTESTINAL: Bowel sounds present in all quadrants. Patient has diffuse abdominal distention with fluid wave. Patient has mild generalized abdominal tenderness to palpation MUSCULOSKELETAL: Full range of motion of all joints without discomfort. INTEGUMENTARY: No rash or other significant dermatologic conditions noted. HEMATOLOGIC: No ecchymosis or petechiae. PSYCHIATRIC: Positive affect. NEUROLOGIC: No focal neurologic deficits noted. Initial orders for labs and / or imaging were placed and patient was placed in the waiting area until a bed is available. Please see further documentation for the full ED course.
[2022-05-18] MEDS ORDERED: MoRPHine SULFATE 4 MG/ML 1 ML CARP\\VIAL IV STA ×2 (19:55→23:44)
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
[2022-05-18 20:04] LABS: Hematocrit (blood only) 32.3 % (37.0-47.0); Hemoglobin 10.3 g/dl (12.0-16.0); Mean Corpuscular Hemoglobin 25.6 pg (25.0-34.0); Mean Corpuscular Hgb Conc 31.9 g/dL (32.0-36.0); Mean Corpuscular Volume 80.1 fL (80.0-100.0); Platelet Count 103 K/uL (130-400); RDW Coefficient of Variation 22.2 % (11.5-14.5); RDW Standard Deviation 64.8 fL (36.4-46.3); Red Blood Count 4.03 M/uL (4.20-5.40); White Blood Count 2.76 K/ul (4.8-10.8)
[2022-05-18 20:14] LABS: Alanine Aminotransferase 18 U/L (7-52); Albumin Level 3.3 gm/dl (3.4-5.0); Alkaline Phosphatase 156 U/L (34-104); Anion Gap 9 (3-11); Aspartate Aminotransferase 30 U/L (13-39); BUN Creatinine Ratio 21.7 (10-20); Bilirubin,Total 1.6 mg/dl (0.2-1.0); Blood Urea Nitrogen 10 mg/dl (6-23); Calcium 8.6 mg/dl (8.6-10.3); Carbon Dioxide 23 mmol/L (21-32); Chloride 101 mmol/L (98-107); Est GFR (African American) 127.1 ml/min; Est GFR (Non-African American) 109.7 ml/min; Globulin 3.4 gm/dl (2.5-4.0); Glucose 107 mg/dl (70-99(Fasting)); Lipase 13 U/L (11-82); Potassium 3.4 mmol/L (3.5-5.1); Sodium 133 mmol/L (136-145); Total Protein 6.7 gm/dl (6.0-8.3)
[2022-05-18 20:20] LABS: Anisocytosis Present; Basophils # (auto) 0.02 K/uL (0-0.2); Basophils % (auto) 0.7 %; Eosinophils # (auto) 0.04 K/uL (0-0.50); Eosinophils % (auto) 1.4 %; Immature Granulocytes # (auto) 0.01 K/uL (0.01-0.20); Immature Granulocytes % (auto) 0.4 %; Lymphocytes # (auto) 0.33 K/uL (1.2-3.4); Monocytes % (auto) 14.5 %; Neutrophils # (auto) 1.96 K/uL (1.40-6.50); Polychromasia 1+
[2022-05-18 20:21] LABS: Troponin I High Sensitivity 4.3 pg/ml (0-14)
[2022-05-18] MEDS ORDERED: OPTIRAY 350 100ml IV ONE (20:56)
--- NOTE | 2022-05-18 21:23 | CT Scan Report ---
Exam(s): CT ABDOMEN + PELVIS With Contrast EXAM: CT Abdomen and Pelvis With Intravenous Contrast CLINICAL HISTORY: Reason for exam: abd pain. TECHNIQUE: Axial computed tomography images of the abdomen and pelvis with intravenous contrast. CTDI is 8 mGy and DLP is 424.74 mGy-cm. Automated exposure control was utilized for the study. A dose lowering technique was utilized adhering to the principles of ALARA. CONTRAST: 86 mL Optiray 350 COMPARISON: No relevant prior studies available. FINDINGS: Lung bases are clear. Gallbladder surgically absent. Enlarged common bile duct is compatible with reservoir effect. Pancreas appears atrophic. Pancreatic duct is dilated to 8.5 mm, possibly sequela of chronic pancreatitis. No pancreatic head mass is visualized. Liver is cirrhotic. There are stigmata of portal hypertension including splenomegaly measuring 16.5 cm and large volume ascites. Portal vein is patent. Adrenal glands and kidneys are unremarkable. There is no aortic aneurysm or adenopathy. There is no free air. Appendix is normal. There is no bowel obstruction. There are postoperative changes of the stomach and small bowel suggesting previous gastric bypass. Focally dilated small bowel measuring 5.5 cm at the jejunojejunal anastomosis is likely chronic/related to surgical technique. Uterus is surgically absent. Urinary bladder is incompletely distended. Stimulator device is implanted in the right anterior abdominal wall with leads extending to the right posterior subcutaneous tissues at the L2 level. Bones are demineralized. There are chronic 30% L2, 20% L3, and 30% L4 compression fractures. There is a chronic sacral fracture at the S2 level. Prior ORIF has been performed in the left femur. There are no acute osseous findings. IMPRESSION: 1. Cirrhosis and stigmata of portal hypertension including splenomegaly and large volume ascites. 2. Status post gastric bypass. No evidence of bowel obstruction. Electronically signed by: Marc Umanzor M.D. 05/18/22 21:22 PM
[2022-05-19] MEDS ORDERED: NON-FORMULARY MEDICATION (Omeprazole 20 mg capsule,delayed release(DR/EC)) PO PRN (01:49)
[2022-05-19] MEDS ORDERED: LIDOCAINE 5% 1 PATCH TD PRN (01:49)
--- NOTE | 2022-05-19 02:10 | History and Physical Report ---
DATE OF ADMISSION: 05/19/2022. CHIEF COMPLAINT: Large volume ascites, abdominal pain. HISTORY OF PRESENT ILLNESS: This is a 57-year-old female with past medical history significant for end-stage liver disease, esophageal varices, portal hypertension, hypothyroidism, peripheral neuropathy, history of convulsions, depression, anxiety, restless legs syndrome, history of narcotic abuse, presents with increasing ascites and abdominal pain. The patient was scheduled for paracentesis 05/23/2022, but she thinks she cannot wait, that is the reason she came here. The abdomen is pushing her chest, causing her chest discomfort and also some shortness of breath. Denies any nausea or vomiting. No fevers, no cough, no headache, no blurred visions, no runny nose. She always has some diarrhea. Normal bladder movements. Currently, resting comfortably and hemodynamically stable. Currently living with her daughter and she ambulates with a walker. The patient's last admission, she was here in the first week of April. As per discharge summary, she was supposed to follow up with [facility] for access stent placement for treatment of pyloric stenosis, but the patient says she does not know anything about it and currently, denies any nausea or vomiting and eating regular food.. ALLERGIES: DIPHENHYDRAMINE, ASPIRIN, BUPROPION, CLARITHROMYCIN, SALICYLATES, OXAPROZIN. PAST MEDICAL HISTORY: As mentioned above. PAST SURGICAL HISTORY: History of cholecystectomy, colonoscopy, EGD, history of open reduction and internal fixation of left arm, left leg hardware in place, history of Jeffy-en-Y gastric bypass, history of tooth extraction, all tooth removed, history of total hysterectomy with bilateral salpingo-oophorectomy, history of laparoscopy for endometriosis, history of resection of small bowel due to endometriosis. FAMILY HISTORY: Significant for father had cancer. Mother had stroke. SOCIAL HISTORY: Smokes 10 cigarettes daily, history of heavy drinking alcohol. Currently says since the end of January, she does not drink any alcohol, no drug abuse. MEDICATIONS: The patient seems to be on citalopram 20 mg p.o. daily, colestipol 2 g p.o. b.i.d., Creon 3 capsules p.o. t.i.d. with meals, folic acid 1 mg p.o. a.m., Lasix 40 mg p.o. b.i.d., gabapentin 600 mg p.o. at bedtime, gabapentin 100 mg p.o. at bedtime, probiotic 1 tablet daily, lidocaine patch transdermal a.m. p.r.n., magnesium oxide 400 mg p.o. daily, midodrine 5 mg p.o. t.i.d., multivitamin 1 tablet p.o. daily, omeprazole 20 mg p.o. b.i.d. p.r.n., Zofran 4 mg p.o. b.i.d. p.r.n., oxycodone 5 mg p.o. q. 4 hours p.r.n., Protonix 40 mg p.o. b.i.d., potassium chloride 20 mEq p.o. b.i.d., spironolactone 100 mg p.o. daily, thiamine 100 mg p.o. daily. REVIEW OF SYSTEMS: As per HPI. Rest of the review of systems is negative. PHYSICAL EXAMINATION: GENERAL: The patient is of moderate build, not in acute distress. VITAL SIGNS: Temperature 36.3, pulse 80, respiratory rate 20, blood pressure 108/72, oxygen 95% on room air. HEENT: Pupils equal, round and reactive to light. Oral mucosa moist. NECK: No JVD, no neck masses. CARDIOVASCULAR: S1 and S2 heard. Regular rate and rhythm. No murmur, no gallop. RESPIRATORY SYSTEM: Normal AP diameter. No accessory muscle use. No wheezing or crackles. ABDOMEN: Distended. Diffuse tenderness. No guarding. No rigidity. CENTRAL NERVOUS SYSTEM: Cranial nerves II through XII grossly intact, nonfocal. EXTREMITIES: No edema, no erythema. LABORATORY DATA: WBC 2.7, hemoglobin 10.3, hematocrit 32.3, platelets 103. Sodium 133, potassium 3.4, chloride 101, bicarbonate 23, BUN 10, creatinine 0.4, serum glucose 107, calcium 8.6, total bilirubin 1.6, AST 30, ALT 18, alkaline phosphatase 156. Troponin I high sensitivity 4.3, lipase 13. SARS-CoV-2 rapid test negative. IMAGING DATA: CT of abdomen and pelvis with IV contrast showed cirrhosis and stigmata of portal hypertension including splenomegaly and large volume ascites, status post gastric bypass. No evidence of bowel obstruction. EKG: Normal sinus rhythm at a rate of 82, no significant change was found. ASSESSMENT AND PLAN: This is a 57-year-old female with end-stage renal disease, esophageal varices, portal hypertension, history of ascites present with abdominal distention, abdominal pain, could not wait until scheduled for paracentesis on 05/23/22 1. Abdominal pain, large volume ascites: The patient seems to be getting frequent paracentesis. We will keep n.p.o., order for ultrasound-guided paracentesis, therapeutic and diagnostic. She is having abdominal pain, we will place her empirically on Rocephin until the diagnostic paracentesis is done. We will consult GI. 2. History of cirrhosis, esophageal varices, portal hypertensive gastropathy, pancytopenia, history of end-stage liver disease, history of gastric varices status post embolization: Currently on Lasix, spironolactone. The patient chronically has diarrhea. Seems to be not taking lactulose. Supposed to be on Xifaxan which will be added. Await GI input. 3. History of pyloric stenosis: Supposed to be get axios stent . The patient does not know anything about it. We will await GI input. 4. Chronic pain: Continue home pain medications. 5. History of alcohol abuse: Says she did not drink since last January. 6. Hypokalemia: We will replace. 7. Deep venous thrombosis prophylaxis: Sequential compression devices. DISPOSITION: Closely monitor in the medical floor. PT/OT prior to discharge. Social service to help with discharge planning. CODE STATUS: DNR/DNI. The patient has POLST form signed in [employer]. Job ID: [id number] [facility]
[2022-05-19] MEDS: MoRPHine SULFATE 4 MG/ML 1 ML CARP\\VIAL IV PRN ×3 (03:53→16:19)
[2022-05-19 07:30] LABS: Albumin Level 2.8 gm/dl (3.4-5.0); BUN Creatinine Ratio 23.1 (10-20); Bilirubin Direct 0.6 mg/dl (0-0.2); Bilirubin,Total 1.8 mg/dl (0.2-1.0); Calcium 7.9 mg/dl (8.6-10.3); Creatinine Clr Calc Pharmacy 144.2 ml/min; Est GFR (African American) 134.2 ml/min; Est GFR (Non-African American) 115.8 ml/min; Magnesium 1.8 mg/dl (1.7-2.4); Potassium 3.6 mmol/L (3.5-5.1); Total Protein 5.6 gm/dl (6.0-8.3)
[2022-05-19 07:35] LABS: Basophils # (auto) 0.01 K/uL (0-0.2); Basophils % (auto) 0.5 %; Eosinophils # (auto) 0.03 K/uL (0-0.50); Eosinophils % (auto) 1.6 %; Hematocrit (blood only) 29.4 % (37.0-47.0); Hemoglobin 9.4 g/dl (12.0-16.0); Lymphocytes # (auto) 0.31 K/uL (1.2-3.4); Lymphocytes % (auto) 16.4 %; Mean Corpuscular Hemoglobin 25.6 pg (25.0-34.0); Mean Corpuscular Volume 80.1 fL (80.0-100.0); Monocytes # (auto) 0.33 K/uL (0.11-0.59); Monocytes % (auto) 17.5 %; Neutrophils # (auto) 1.21 K/uL (1.40-6.50); Platelet Count 88 K/uL (130-400); RDW Coefficient of Variation 22.5 % (11.5-14.5); RDW Standard Deviation 65.1 fL (36.4-46.3); Red Blood Count 3.67 M/uL (4.20-5.40); White Blood Count 1.89 K/ul (4.8-10.8)
[2022-05-19 08:16] LABS: Appearance Urine Clear (Clear); Blood Urine Negative (Negative); Color Urine Orange; Epithelial Cell Urine Auto >30 /lpf (0-5); Glucose Urine UA Negative (Negative); Ketones Urine Trace (Negative); Leukocyte Esterase Urine Trace (Negative); Nitrite Urine Positive (Negative); Protein Urine 1+ (Negative); RBC Urine Automated 0-4 /hpf (0-4); Specific Gravity Urine > 1.045 (1.000-1.030); Urobilinogen Urine Positive (Negative); pH Urine 6.5 (4.5-7.5)
[2022-05-19 08:18] LABS: Bilirubin Urine 1+ (Negative)
[2022-05-19 08:24] LABS: Calcium Oxalate Crystals Urine Present (None Prsent)
[2022-05-19 08:25] LABS: Bacteria Urine Automated 1+ (Negative)
[2022-05-19] MEDS ORDERED: ALBUMIN 25% 100 mL 25 GM/100 ML VIAL IV SCH (09:00)
[2022-05-19 09:06] LABS: Amphetamines+Metham, Urine Neg (Neg); Barbiturates, Urine Neg (Neg); Benzodiazepine, Urine Neg (Neg); Cocaine, Urine Neg (Neg); MDMA (Ecstacy), Urine Neg (Neg); Methadone, Urine Neg (Neg); Opiate, Urine Pos (Neg); Phencyclidine, Urine Neg (Neg)
[2022-05-19] MEDS: ALBUMIN HUMAN IV SCH ×3 (10:02→16:22)
--- NOTE | 2022-05-19 10:05 | Electrocardiogram Report ---
Test Reason : Blood Pressure : / mmHG Vent. Rate : 082 BPM Atrial Rate : 082 BPM P-R Int : 158 ms QRS Dur : 086 ms QT Int : 382 ms P-R-T Axes : 042 -24 006 degrees QTc Int : 446 ms Normal sinus rhythm Poor R wave progression, consider anterior ND vs. lead placement vs. LVH Abnormal ECG When compared with ECG of 07-APR-2022 09:36, No significant change was found Confirmed by Jonah Kirkpatrick ([id number]) on 05/19/2022 10:05:45 AM Referred By: REFERRED SELF Confirmed By:Jonah Kirkpatrick
[2022-05-19 10:37] LABS: INR 1.2 (0.9-1.1); Prothrombin Time 12.3 Seconds (9.0-12.0)
[2022-05-19] MEDS: cefTRIAXone SODIUM 2,000 MG in DEXTROSE 5% 50 ML IV SCH (10:39)
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
--- NOTE | 2022-05-19 15:40 | Ultrasound Report ---
Ultrasound-guided paracentesis INDICATION: Ascites PROCEDURE: Procedure and risks were explained. Informed consent was obtained. A final timeout was com pleted. A pocket of ascites was identified in the left lower quadrant. The left lower quadrant was pr epped and draped in sterile fashion. 1% buffered lidocaine was utilized for skin anesthesia. Utilizing ultrasound guidance, a 5 Kiswahili safety centesis catheter was advanced into the pocket of as cites. Ultrasound image was obtained. A total of 5300 mL of yellow ascites fluid was removed with 1 L sent to the lab for analysis. Moderate ascites remains. The catheter was removed and Band-Aid applie d. The patient tolerated the procedure well. Vital signs will be monitored prior to discharge. IMPRESSION: Ultrasound-guided paracentesis as above. Performed, dictated, and signed by Zacarias Lopez PA-C; to be co-signed by Dr. Fredy Matos. Electronically signed by: Fredy Matos M.D. 05/19/2022 3:47 PM
[2022-05-19 16:29] LABS: Albumin Peritoneal Fluid < 1.5 gm/dl
[2022-05-19] MEDS: PANCREAZE (LIPASE 10,500U) CAP PO SCH ×3 (16:32→16:33)
[2022-05-19] MEDS: MULTIVITAMIN TAB PO SCH (16:34)
[2022-05-19] MEDS: rifAXIMin 550 MG TABLET PO SCH ×2 (16:34→19:42)
[2022-05-19 16:35] LABS: Total Protein Peritoneal Fluid < 3.0 gm/dl
[2022-05-19] MEDS: FUROSEMIDE 40 MG TAB PO SCH ×2 (16:36→19:41)
[2022-05-19] MEDS: ADVANCED PROBIOTIC 1250 MG CAPSULE PO SCH (16:36)
[2022-05-19] MEDS: CITALOPRAM 20 MG TAB PO SCH (16:36)
[2022-05-19] MEDS: THIAMINE HCL 100 MG TAB PO SCH (16:37)
[2022-05-19] MEDS: MAGNESIUM OXIDE 400 MG TAB PO SCH (16:37)
[2022-05-19] MEDS: FOLIC ACID 1 MG TAB PO SCH (16:38)
[2022-05-19] MEDS: PANTOprazole 40 MG TAB PO SCH ×2 (16:38→19:41)
[2022-05-19] MEDS: MIDODRINE HCL 2.5 MG TAB PO SCH ×3 (16:39→19:41)
[2022-05-19] MEDS: COLESTIPOL HCL 1 GM TAB PO SCH ×2 (16:40→19:40)
[2022-05-19] MEDS: POTASSIUM CHLORIDE CRTAB 20 MEQ TABCR PO SCH ×2 (16:41)
[2022-05-19] MEDS: SPIRONOLACTONE 100 MG TAB PO SCH (16:42)
--- NOTE | 2022-05-19 17:34 | Communication Note ---
Date of Service: May 19, 2022 Patient seen and examined at bedside as a follow-up of large volume ascites on the background of end-stage liver disease and acute UTI. Patient started on Rocephin, is a status post 5.3 L paracentesis, will follow-up on the studies. We will follow-up on urine culture. Patient appears stable hemodynamically, can resume diet after paracentesis today. For further details on the patient, refer to today's H&P note.
[2022-05-19 18:28] LABS: Appearance Peritoneal Fluid Clear; Color Peritoneal Fluid Straw; Lymphocytes, Fluid 13 %; Mono,Macrophage,Mesothelial 58 %; Neutrophils, Fluid 29 %; RBC Peritoneal Fluid Auto < 2000 /uL; WBC Peritoneal Fluid Auto 145 /ul (0-300)
[2022-05-19] MEDS: GABAPENTIN 100 MG CAP PO SCH (19:41)
[2022-05-19] MEDS: GABAPENTIN 600 MG TAB PO SCH (19:42)
[2022-05-19] MEDS: oxyCODONE HCL IR 5 MG TAB (IMMEDIATE RELEASE) PO PRN (19:49)
[2022-05-20] MEDS: oxyCODONE HCL IR 5 MG TAB (IMMEDIATE RELEASE) PO PRN ×5 (03:37→22:31)
[2022-05-20] MEDS: MoRPHine SULFATE 4 MG/ML 1 ML CARP\\VIAL IV PRN ×5 (07:03→20:20)
[2022-05-20 07:12] LABS: Hematocrit (blood only) 29.1 % (37.0-47.0); Hemoglobin 9.4 g/dl (12.0-16.0); Mean Corpuscular Hgb Conc 32.3 g/dL (32.0-36.0); Mean Corpuscular Volume 80.4 fL (80.0-100.0); Platelet Count 93 K/uL (130-400); RDW Coefficient of Variation 22.3 % (11.5-14.5); RDW Standard Deviation 65.4 fL (36.4-46.3); Red Blood Count 3.62 M/uL (4.20-5.40); White Blood Count 1.59 K/ul (4.8-10.8)
[2022-05-20 07:15] LABS: BUN Creatinine Ratio 17.5 (10-20); Calcium 7.8 mg/dl (8.6-10.3); Creatinine Clr Calc Pharmacy 140.6 ml/min; Est GFR (African American) 133.1 ml/min; Est GFR (Non-African American) 114.8 ml/min; Magnesium 1.5 mg/dl (1.7-2.4); Phosphorus 3.6 mg/dl (2.5-4.9); Potassium 3.4 mmol/L (3.5-5.1)
[2022-05-20] MEDS: PANTOprazole 40 MG TAB PO SCH ×2 (08:37→20:10)
[2022-05-20] MEDS: POTASSIUM CHLORIDE CRTAB 20 MEQ TABCR PO SCH ×2 (08:37→17:38)
[2022-05-20] MEDS: PANCREAZE (LIPASE 10,500U) CAP PO SCH ×3 (08:38→17:40)
[2022-05-20] MEDS: rifAXIMin 550 MG TABLET PO SCH ×2 (08:38→20:11)
[2022-05-20] MEDS: FUROSEMIDE 40 MG TAB PO SCH ×2 (08:38→20:11)
[2022-05-20] MEDS: COLESTIPOL HCL 1 GM TAB PO SCH ×2 (08:38→20:10)
[2022-05-20] MEDS: MULTIVITAMIN TAB PO SCH (08:39)
[2022-05-20] MEDS: ADVANCED PROBIOTIC 1250 MG CAPSULE PO SCH (08:39)
[2022-05-20] MEDS: CITALOPRAM 20 MG TAB PO SCH (08:39)
[2022-05-20] MEDS: SPIRONOLACTONE 100 MG TAB PO SCH (08:40)
[2022-05-20] MEDS: FOLIC ACID 1 MG TAB PO SCH (08:41)
[2022-05-20] MEDS: THIAMINE HCL 100 MG TAB PO SCH (08:41)
[2022-05-20] MEDS: MAGNESIUM OXIDE 400 MG TAB PO SCH (08:41)
[2022-05-20] MEDS: MIDODRINE HCL 2.5 MG TAB PO SCH ×3 (09:03→17:40)
[2022-05-20] MEDS ORDERED: ONDANSETRON INJ 2 MG/ML 2 ML VIAL IV STA (09:18)
[2022-05-20] MEDS ORDERED: POTASSIUM CHLORIDE CRTAB 20 MEQ TABCR PO STA (09:19)
[2022-05-20] MEDS: cefTRIAXone SODIUM 2,000 MG in DEXTROSE 5% 50 ML IV SCH (09:36)
--- NOTE | 2022-05-20 10:04 | Gastroenterology Progress Note ---
Date of Service May 20, 2022 Assessment & Plan (1) Abdominal ascites: (2) Cirrhosis: Plan: Pt is a 57 yo female w ETOH cirrhosis w complicated w varices, PHG, currently on Palliative Medicine. MELD 11. She is admitted w abd pain, likely related to ascites re-accumulation. This is improved after she underwent US guided paracentesis w 5L ascites removal yesterday. - 2g Na diet - Check Phosphatildylethanol level; ETOH cessation advised - Supportive care and symptomatic management - Will coordinate with with her OP Palliative Medicine team to arrange schedule OP paracentesis on every 4 weeks basis. - GI to sign off; pls recall prn Admission and Anticipated Discharge Date Admission Date: May 19, 2022 Supervising Physician Co-Signing Physician Notes I saw and evaluated the patient, she has a long history of liver disease as result of long-term alcohol abuse. The patient notes that she is feeling improved today after a therapeutic paracentesis. The patient arrangements for outpatient paracentesis every 4 weeks. Please call with any questions or concerns, GI to sign off. Subjective Pt had 5L ascites removal via paracentesis yesterday. She said abd pain is improved. Tolerating diet, no n/v. Review of Systems Review of Systems: All systems reviewed & are unremarkable except as noted in HPI & below Physical Exam Constitutional: + frail appearing, + disheveled and cooperative Eyes: PERRL, conjunctivae normal, anicteric sclerae ENMT: external ear and nose normal, oropharynx normal Respiratory: normal respiratory effort, lungs clear to auscultation Cardiovascular: RRR, no murmur, no edema Gastrointestinal (Abdomen): Pain pump on RUQ abd, soft, non tender Skin: no rashes, warm and dry no jaundice Neurologic: Motor/Sensory: no asterixis Psychiatric: A+Ox3, euthymic affect Lymphatic: no lymphedema Results & Data Vital Signs (Past 12 Hours) Vital Signs Temp Pulse Resp BP Pulse Ox O2 Del Method 05/20/22 07:39 36.8 C 66 16 91/51 L 93 Room Air (1) Abdominal ascites Ascites type: due to alcoholic cirrhosis Qualified Code(s): K70.31 - Alcoholic cirrhosis of liver with ascites (2) Cirrhosis Ascites presence: with ascites Hepatic cirrhosis type: alcoholic cirrhosis Qualified Code(s): K70.31 - Alcoholic cirrhosis of liver with ascites
[2022-05-20] MEDS: MAGNESIUM SULFATE / D5W 1 GM/100 ML BAG IV SCH ×2 (10:17→12:22)
--- NOTE | 2022-05-20 13:14 | Discharge Summary ---
Date of Service May 20, 2022 Admission HPI Per Admitting Provider DATE OF ADMISSION: 05/19/2022. CHIEF COMPLAINT: Large volume ascites, abdominal pain. HISTORY OF PRESENT ILLNESS: This is a 57-year-old female with past medical history significant for end-stage liver disease, esophageal varices, portal hypertension, hypothyroidism, peripheral neuropathy, history of convulsions, depression, anxiety, restless legs syndrome, history of narcotic abuse, presents with increasing ascites and abdominal pain. The patient was scheduled for paracentesis 05/23/2022, but she thinks she cannot wait, that is the reason she came here. The abdomen is pushing her chest, causing her chest discomfort and also some shortness of breath. Denies any nausea or vomiting. No fevers, no cough, no headache, no blurred visions, no runny nose. She always has some diarrhea. Normal bladder movements. Currently, resting comfortably and hemodynamically stable. Currently living with her daughter and she ambulates with a walker. The patient's last admission, she was here in the first week of April. As per discharge summary, she was supposed to follow up with [facility] for access stent placement for treatment of pyloric stenosis, but the patient says she does not know anything about it and currently, denies any nausea or vomiting and eating regular food.. ALLERGIES: DIPHENHYDRAMINE, ASPIRIN, BUPROPION, CLARITHROMYCIN, SALICYLATES, OXAPROZIN. PAST MEDICAL HISTORY: As mentioned above. PAST SURGICAL HISTORY: History of cholecystectomy, colonoscopy, EGD, history of open reduction and internal fixation of left arm, left leg hardware in place, history of Jeffy-en-Y gastric bypass, history of tooth extraction, all tooth removed, history of total hysterectomy with bilateral salpingo-oophorectomy, history of laparoscopy for endometriosis, history of resection of small bowel du e to endometriosis. FAMILY HISTORY: Significant for father had cancer. Mother had stroke. SOCIAL HISTORY: Smokes 10 cigarettes daily, history of heavy drinking alcohol. Currently says since the end of January, she does not drink any alcohol, no drug abuse. MEDICATIONS: The patient seems to be on citalopram 20 mg p.o. daily, colestipol 2 g p.o. b.i.d., Creon 3 capsules p.o. t.i.d. with meals, folic acid 1 mg p.o. a.m., Lasix 40 mg p.o. b.i.d., gabapentin 600 mg p.o. at bedtime, gabapentin 100 mg p.o. at bedtime, probiotic 1 tablet daily, lidocaine patch transdermal a.m. p.r.n., magnesium oxide 400 mg p.o. daily, midodrine 5 mg p.o. t.i.d., multivitamin 1 tablet p.o. daily, omeprazole 20 mg p.o. b.i.d. p.r.n., Zofran 4 mg p.o. b.i.d. p.r.n., oxycodone 5 mg p.o. q. 4 hours p.r.n., Protonix 40 mg p.o. b.i.d., potassium chloride 20 mEq p.o. b.i.d., spironolactone 100 mg p.o. daily, thiamine 100 mg p.o. daily. REVIEW OF SYSTEMS: As per HPI. Rest of the review of systems is negative. Admission Exam Per Admitting Provider GENERAL: The patient is of moderate build, not in acute distress. VITAL SIGNS: Temperature 36.3, pulse 80, respiratory rate 20, blood pressure 108/72, oxygen 95% on room air. HEENT: Pupils equal, round and reactive to light. Oral mucosa moist. NECK: No JVD, no neck masses. CARDIOVASCULAR: S1 and S2 heard. Regular rate and rhythm. No murmur, no gallop. RESPIRATORY SYSTEM: Normal AP diameter. No accessory muscle use. No wheezing or crackles. ABDOMEN: Distended. Diffuse tenderness. No guarding. No rigidity. CENTRAL NERVOUS SYSTEM: Cranial nerves II through XII grossly intact, nonfocal. EXTREMITIES: No edema, no erythema. Principal Diagnosis Abdominal ascites Acute UTI History of cirrhosis Discharge Exam GENERAL: Alert and oriented x3. NAD, on RA. HEENT: No pallor, no icterus. Pupils equal, round and reactive to light. Oral mucosa moist. NECK: No JVD, no neck masses. HEART: S1 and S2 heard. Regular rate and rhythm. No murmur, no gallop. RESPIRATORY SYSTEM: Normal AP diameter. No accessory muscle use. No wheezing, no crackles. ABDOMEN: Soft, bowel sounds present, mild tender - appears chronic, distention--improved CENTRAL NERVOUS SYSTEM: No facial droop. Speech is clear. Obeys simple commands. Moves extremities. EXTREMITIES: No edema, no erythema seen. Discharge Data Allergies Allergy/AdvReac Type Severity Reaction Status Date / Time diphenhydramine Allergy Severe seizures/it Verified 05/18/22 22:00 mya/tremo rs aspirin Allergy Intermediate hives/ringing Verified 05/18/22 22:00 of ears bupropion Allergy Intermediate Palpitation Verified 05/18/22 22:00 s clarithromycin Allergy Intermediate HIVES Verified 05/18/22 22:00 salicylates Allergy Intermediate ringing in Verified 05/18/22 22:00 ears/hives oxaprozin AdvReac Intermediate nausea/vomi Verified 05/18/22 22:00 ting Consultations 05/18/22 21:32 ED Decision to Admit Stat 05/19/22 01:49 Consult Gastroenterology Routine Ordered Studies 05/18/22 20:18 CT Abd and Pelvis [CT abd pelvis IV con only] Stat 05/19/22 08:52 IR paracentesis abd w/img US Routine Hospital Course (1) Abdominal pain: Plan 57-year-old lady with PMH of cirrhosis and recurrent ascites status post outpatient paracentesis came to the hospital with complaint of abdominal distention associated with some pain. Patient is a status post paracentesis 5.3 L yesterday, patient reports improvement in her comfort level and her pain. Acetic fluid yesterday with WBC of 145, patient does have UTI on urine analysis, patient will continue on oral antibiotic at discharge to complete the course of treatment. Otherwise patient to maintain her regular follow-up with PCP and outpatient GI doctor. Patient would like to go home today. Patient to follow- up on final cultures of peritoneal fluid and urine with PCP office. She is being discharged to home with following instruction at the point of discharge: Follow-up with the primary care physician within return likely you will need labs CBC/CMP/magnesium/phosphorus. Follow-up with peritoneal and urine culture final results obtained this admission with the PCP office when you visit PCP in a week time. Follow-up with GI doctor as prior. Follow-up with your outpatient palliative care and also coordinate for arranging scheduled paracentesis more frequently. Recommend staying away from alcohol/tobacco. Continue to take your medications as prescribed. Home Health Attestation I certify that this patient is under my care and that I, or a physicians office assistant working with me, had a face to-face encounter that meets the home health [id number] encounter requirements with this patient. The encounter with the patient was in whole, or in part, for the following medical condition, which is the primary reason for home health care (list medical condition): I certify that, based on my findings, the following services are medically necessary home health services: My clinical findings support the need for the above services because: Further, I certify that my clinical findings support that this patient is homebound (i.e. absences from home require considerable and taxing effort and are for medical reasons or latter-day services or infrequently or of short duration when for other reasons) because: Certification for Home Health Services: Based on the above findings, I certify that this patient is confined to the home and needs intermittent group home care, physical therapy and/or speech therapy or continues to need occupational therapy. The patient is under my care, and I have initiated the establishment of the plan of care. This patient will be followed by a physician who will periodically review the plan of care. Total Time Total Time Spent Total Time Spent (In Minutes): 45 Discharge Plan Discharge Items Patient Disposition: Home - Self-Care Reason For Visit: ABDOMINAL PAIN Discharge Diagnosis: Abdominal ascites History of cirrhosis UTI Activity: Resume your previous activity Non-emergency contact: Primary Care Provider Call non-emergency contact if: you have any medication questions and your temperature is above 101 Follow-up/Referrals: Filiberto Moya [Primary Care Provider] - Diet: Heart Healthy and Low Sodium (2gm) Addtl Attending Provider Instructions: Follow-up with the primary care physician within return likely you will need labs CBC/CMP/magnesium/phosphorus. Follow-up with peritoneal and urine culture final results obtained this admission with the PCP office when you visit PCP in a week time. Follow-up with GI doctor as prior. Follow-up with your outpatient palliative care and also coordinate for arranging scheduled paracentesis more frequently. Recommend staying away from alcohol/tobacco. Continue to take your medications as prescribed. Pending Studies at Discharge: Yes (Peritoneal and urine culture final results.) Stand-Alone Forms: My [employer], Smoking Cessation Medications and DC Order Prescriptions: New Xifaxan 550 mg Tablet 550 mg PO BID Qty: 60 0RF cefdinir 300 mg capsule 300 mg PO BID 4 Days Qty: 8 0RF Continued gabapentin 100 mg capsule 100 mg PO HS Rx Instructions: NOT ON [facility] MED LIST, ON EXT MED HX 04/10/22 FOR 30 DAYS. take along with 600mg = 700mg magnesium oxide 400 mg (241.3 mg magnesium) Tablet 400 mg PO QAM Qty: 30 0RF Rx Instructions: NOT ON [facility] MED LIST, ON EXT MED HX 05/12/22 thiamine HCl (vitamin B1) 100 mg Tablet 100 mg PO QAM Qty: 30 0RF folic acid 1 mg Tablet 1 mg PO QAM Qty: 30 0RF furosemide 40 mg tablet 40 mg PO BID Qty: 60 0RF Rx Instructions: NOT ON [facility] MED LIST, ON EXT MED HX 05/12/22 gabapentin 600 mg tablet 600 mg PO HS Qty: 30 0RF Rx Instructions: NOT ON [facility] MED LIST, ON EXT MED HX 05/12/22take along with 100mg spironolactone 100 mg tablet 100 mg PO DAILY Qty: 30 0RF Rx Instructions: NOT ON [facility] MED LIST, ON EXT MED HX 05/12/22 midodrine 5 mg tablet 5 mg PO TID Qty: 90 0RF Rx Instructions: do not give last dose of day after 6PM or within 4 hrs of bedtime citalopram 20 mg tablet 20 mg PO QAM Qty: 30 0RF Rx Instructions: LAST FILLED 04/10/22 FOR 30 DAYS. lidocaine 5 % adhesive patch,medicated 1 patch transdermal QAM PRN (Reason: Pain) Qty: 15 0RF colestipol 1 gram Tablet 2 g PO BID 30 Days Qty: 120 0RF ondansetron 4 mg tablet,disintegrating 4 mg PO BID PRN (Reason: nausea and vomiting) Qty: 14 0RF Rx Instructions: NOT ON [facility] MED LIST, ON EXT MED HX 05/12/22 pantoprazole 40 mg Tablet,Delayed Release (Dr/Ec) 40 mg PO BID Qty: 60 0RF Rx Instructions: NOT ON [facility] MED LIST, ON EXT MED HX 05/12/22 potassium chloride 20 mEq tablet extended release 20 meq PO BID Qty: 14 0RF Rx Instructions: NOT ON [facility] MED LIST, ON EXT MED HX 05/12/22 multivitamin Tablet 1 tab PO DAILY omeprazole 20 mg capsule,delayed release(DR/EC) 20 mg PO BID PRN (Reason: Heartburn) oxycodone 5 mg tablet 5 mg PO Q4H PRN (Reason: Pain, Severe) Rx Instructions: NOT ON [facility] MED LIST, ON EXT MED HX 05/12/22 oxycodone 10 mg tablet 10 mg PO Q4H PRN (Reason: Pain, Severe) Rx Instructions: ORDERED 05/14/22 Probiotic Acidophilus 1.5 mg (250 million cell) Capsule 100 mg PO DAILY Creon 36,000-114,000- 180,000 unit capsule,delayed release(DR/EC) 3 cap PO TIDM Discharge Orders: Discharge Order (Routine); Ordered 05/20/22 Ordered By: Salud Dinh Admission Data Admit Date/Time: 05/19/22 00:44 Attending Provider: Salud Dinh Admit Provider: Taiwo Aguilera Primary Care Provider: Filiberto Moya Other Providers: Taiwo Aguilera ; Mio Rojas ; Artemio Aranda ; Allie Stovall ; Radha Castellon ; Telma Stevens ; Margie Savage ; Jh Guerrero ; Noble Vidal ; Pierre Vargas ; Aure Choi ; Kevin Coy ; Nicole Calvert ; Essence Kraus ; Meredith Diaz ; Ca Allen ; Nia Correa ; Sebastian Shah ; Owen Duran ; Jennifer Kaiser ; Chris Palencia Jr
--- NOTE | 2022-05-20 16:07 | Hospitalist Progress Note ---
Date of Service May 20, 2022 Assessment & Plan (1) Abdominal pain: Plan Ascites on the background of ESLD 57-year-old lady with PMH of cirrhosis and recurrent ascites status post outpatient paracentesis came to the hospital with complaint of abdominal distention associated with some pain. Patient is a status post paracentesis 5.3 L on 05/19, patient reports improvement in her comfort level and her pain. Ascites fluid yesterday with WBC of 145, follow-up on culture. Acute UTI: Patient started on Rocephin 05/19, follow-up urine culture. Electrolyte abnormalities: Monitor replete. Other chronic medical conditions: Continue rifaximin/lactulose/Aldactone/Lasix other medications as able. DVT prophylaxis: Heparin subcu Disposition: Likely tomorrow. Admission and Anticipated Discharge Date Admission Date: May 19, 2022 Subjective Patient seen and examined at bedside as a follow-up of abdominal pain and large volume ascites on the background of history of cirrhosis. Patient was lying in bed, on room air, NAD, reports being nauseous and eating little, reports improvement in her belly distention and belly pain, was agreeable to discharge early in the morning. Later in the day, reports feeling not very much well which is nonspecific in nature and would like to stay today. Discharge order has been canceled. Physical Exam Physical Exam: GENERAL: Alert and oriented x3. NAD, on RA. HEENT: No pallor, no icterus. Pupils equal, round and reactive to light. Oral mucosa moist. NECK: No JVD, no neck masses. HEART: S1 and S2 heard. Regular rate and rhythm. No murmur, no gallop. RESPIRATORY SYSTEM: Normal AP diameter. No accessory muscle use. No wheezing, no crackles. ABDOMEN: Soft, bowel sounds present, mild tender - appears chronic, distention--improved CENTRAL NERVOUS SYSTEM: No facial droop. Speech is clear. Obeys simple commands. Moves extremities. EXTREMITIES: No edema, no erythema seen. Results & Data Results & Data Vital Signs (Past 12 Hours) Vital Signs Temp Pulse Resp BP Pulse Ox O2 Del Method 05/20/22 07:39 36.8 C 66 16 91/51 L 93 Room Air (1) Abdominal pain Abdominal location: generalized Qualified Code(s): R10.84 - Generalized abdominal pain
[2022-05-20] MEDS: ONDANSETRON 4 MG OD TAB PO PRN (17:38)
[2022-05-20] MEDS: LACTULOSE SYRUP 20 GM/30 ML UDC PO SCH ×2 (18:32→20:09)
[2022-05-20] MEDS: GABAPENTIN 100 MG CAP PO SCH (20:10)
[2022-05-20] MEDS: GABAPENTIN 600 MG TAB PO SCH (20:10)
[2022-05-20] MEDS: HEPARIN SOD 5,000 UNIT/0.5 ML VIAL SQ SCH (20:12)
[2022-05-21] MEDS: MoRPHine SULFATE 4 MG/ML 1 ML CARP\\VIAL IV PRN ×5 (02:32→20:52)
[2022-05-21] MEDS: oxyCODONE HCL IR 5 MG TAB (IMMEDIATE RELEASE) PO PRN ×5 (06:23→23:01)
[2022-05-21] MEDS: ONDANSETRON 4 MG OD TAB PO PRN ×2 (06:36→20:52)
[2022-05-21] MEDS: MIDODRINE HCL 2.5 MG TAB PO SCH ×3 (07:45→16:40)
[2022-05-21] MEDS: PANCREAZE (LIPASE 10,500U) CAP PO SCH ×3 (07:45→16:37)
[2022-05-21 08:06] LABS: Hematocrit (blood only) 32.7 % (37.0-47.0); Hemoglobin 10.5 g/dl (12.0-16.0); Mean Corpuscular Hemoglobin 25.7 pg (25.0-34.0); Mean Corpuscular Hgb Conc 32.1 g/dL (32.0-36.0); Mean Platelet Volume 11.2 fL (9.4-12.4); Platelet Count 122 K/uL (130-400); RDW Coefficient of Variation 22.3 % (11.5-14.5); RDW Standard Deviation 64.6 fL (36.4-46.3); Red Blood Count 4.09 M/uL (4.20-5.40); White Blood Count 1.89 K/ul (4.8-10.8)
[2022-05-21 08:18] LABS: BUN Creatinine Ratio 16.3 (10-20); Calcium 8.4 mg/dl (8.6-10.3); Creatinine Clr Calc Pharmacy 114.8 ml/min; Est GFR (African American) 124.5 ml/min; Est GFR (Non-African American) 107.4 ml/min; Magnesium 1.7 mg/dl (1.7-2.4); Phosphorus 3.9 mg/dl (2.5-4.9); Potassium 3.8 mmol/L (3.5-5.1)
[2022-05-21] MEDS: FUROSEMIDE 40 MG TAB PO SCH ×2 (08:53→19:45)
[2022-05-21] MEDS: rifAXIMin 550 MG TABLET PO SCH ×2 (08:54→19:46)
[2022-05-21] MEDS: POTASSIUM CHLORIDE CRTAB 20 MEQ TABCR PO SCH ×2 (08:54→16:37)
[2022-05-21] MEDS: PANTOprazole 40 MG TAB PO SCH ×2 (08:54→19:46)
[2022-05-21] MEDS: COLESTIPOL HCL 1 GM TAB PO SCH ×2 (08:55→19:46)
[2022-05-21] MEDS: SPIRONOLACTONE 100 MG TAB PO SCH (08:56)
[2022-05-21] MEDS: CITALOPRAM 20 MG TAB PO SCH (08:56)
[2022-05-21] MEDS: ADVANCED PROBIOTIC 1250 MG CAPSULE PO SCH (08:56)
[2022-05-21] MEDS: MAGNESIUM OXIDE 400 MG TAB PO SCH (08:57)
[2022-05-21] MEDS: FOLIC ACID 1 MG TAB PO SCH (08:57)
[2022-05-21] MEDS: LACTULOSE SYRUP 20 GM/30 ML UDC PO SCH ×3 (08:58→19:47)
[2022-05-21] MEDS: MULTIVITAMIN TAB PO SCH (08:59)
[2022-05-21] MEDS: HEPARIN SOD 5,000 UNIT/0.5 ML VIAL SQ SCH ×2 (08:59→19:46)
[2022-05-21] MEDS: THIAMINE HCL 100 MG TAB PO SCH (08:59)
[2022-05-21] MEDS: cefTRIAXone SODIUM 2,000 MG in DEXTROSE 5% 50 ML IV SCH (09:41)
--- NOTE | 2022-05-21 14:10 | Hospitalist Progress Note ---
Date of Service May 21, 2022 delayed entry date of service noted above Assessment & Plan (1) Abdominal pain: (2) Abdominal ascites: Plan: 05/21 Afebrile Cultures negative so far Continue as needed analgesics Continue other usual medication regimen (3) Cirrhosis: Plan: Appears to be compensated overall this morning (4) Alcoholism with alcohol dependence: Plan: No signs of active interval Admission and Anticipated Discharge Date Admission Date: May 19, 2022 Subjective Follow-up for status post paracentesis, 720 Seen resting in bed, comfortable, not distressed States she is still recovering from paracentesis, still having some abdominal discomfort which is usual for her post paracentesis No fevers or chills, abdominal pain, nausea vomiting no chest pain, dyspnea, palpitations, dizziness No other new symptoms Review of Systems Review of Systems: all noted and negative except for above Physical Exam Physical Exam: General- oriented x 3, not in distress, speaks in sentences with no effort or accessory muscle use Eyes- anicteric Neck- no JVD Lungs- clear breath sounds bilaterally, no rales/wheezes Heart- normal rate, regular rhythm; no murmurs Abdomen- normal bowel sounds, nondistended, soft, nontender Extremities- no pretibial edema, no calf tenderness Neuro- alert, oriented x 3; no gross focal neurologic deficits Skin- warm & dry Results & Data Results & Data Vital Signs (Past 12 Hours) Vital Signs Temp Pulse Resp BP Pulse Ox O2 Del Method 05/21/22 07:38 36.8 C 69 16 105/65 94 Room Air 05/21/22 06:22 67 16 91/51 L 97 Room Air 05/21/22 02:32 71 16 108/72 94 Room Air all noted and reviewed including below (1) Abdominal pain Abdominal location: generalized Qualified Code(s): R10.84 - Generalized abdominal pain (2) Abdominal ascites Ascites type: due to alcoholic cirrhosis Qualified Code(s): K70.31 - Alcoholic cirrhosis of liver with ascites (3) Cirrhosis Hepatic cirrhosis type: alcoholic cirrhosis Ascites presence: with ascites Qualified Code(s): K70.31 - Alcoholic cirrhosis of liver with ascites (4) Alcoholism with alcohol dependence Complication of substance-induced condition: uncomplicated Substance use status: in withdrawal Qualified Code(s): F10.230 - Alcohol dependence with withdrawal, uncomplicated
[2022-05-21 18:28] LABS: Codeine Urine NEGATIVE ng/mL (<50); Hydrocodone Urine NEGATIVE ng/mL (<50); Hydromor Urine NEGATIVE ng/mL (<50); Marijuana Quant, GCMS Urine >5000 ng/mL (<5); Morphine Urine >10000 ng/mL (<50); Norhydrocodone Conf Ur NEGATIVE ng/mL (<50); Noroxycodone Urine >10000 ng/mL (<50); Oxycodone Urine 8580 ng/mL (<50); Oxymorph Urine 5640 ng/mL (<50)
[2022-05-21] MEDS: GABAPENTIN 600 MG TAB PO SCH (19:45)
[2022-05-21] MEDS: GABAPENTIN 100 MG CAP PO SCH (19:46)
[2022-05-22] MEDS: MoRPHine SULFATE 4 MG/ML 1 ML CARP\\VIAL IV PRN ×6 (01:17→21:44)
[2022-05-22] MEDS: oxyCODONE HCL IR 5 MG TAB (IMMEDIATE RELEASE) PO PRN ×5 (03:04→20:15)
[2022-05-22] MEDS: ONDANSETRON 4 MG OD TAB PO PRN (07:33)
[2022-05-22] MEDS: POTASSIUM CHLORIDE CRTAB 20 MEQ TABCR PO SCH ×2 (08:32→17:10)
[2022-05-22] MEDS: MIDODRINE HCL 2.5 MG TAB PO SCH ×3 (08:34→17:10)
[2022-05-22] MEDS: PANCREAZE (LIPASE 10,500U) CAP PO SCH ×3 (08:34→17:10)
[2022-05-22] MEDS: COLESTIPOL HCL 1 GM TAB PO SCH ×2 (08:35→20:06)
[2022-05-22] MEDS: FUROSEMIDE 40 MG TAB PO SCH ×2 (08:35→20:06)
[2022-05-22] MEDS: rifAXIMin 550 MG TABLET PO SCH ×2 (08:35→20:07)
[2022-05-22] MEDS: THIAMINE HCL 100 MG TAB PO SCH (08:35)
[2022-05-22] MEDS: MAGNESIUM OXIDE 400 MG TAB PO SCH (08:35)
[2022-05-22] MEDS: ADVANCED PROBIOTIC 1250 MG CAPSULE PO SCH (08:35)
[2022-05-22] MEDS: PANTOprazole 40 MG TAB PO SCH ×2 (08:35→20:07)
[2022-05-22] MEDS: SPIRONOLACTONE 100 MG TAB PO SCH (08:35)
[2022-05-22] MEDS: FOLIC ACID 1 MG TAB PO SCH (08:35)
[2022-05-22] MEDS: MULTIVITAMIN TAB PO SCH (08:35)
[2022-05-22] MEDS: CITALOPRAM 20 MG TAB PO SCH (08:35)
[2022-05-22] MEDS: LACTULOSE SYRUP 20 GM/30 ML UDC PO SCH ×3 (08:36→20:07)
[2022-05-22] MEDS: HEPARIN SOD 5,000 UNIT/0.5 ML VIAL SQ SCH ×2 (08:36→20:07)
[2022-05-22] MEDS: cefTRIAXone SODIUM 2,000 MG in DEXTROSE 5% 50 ML IV SCH (09:48)
--- NOTE | 2022-05-22 10:22 | Hospitalist Progress Note ---
Date of Service May 22, 2022 Assessment & Plan (1) Abdominal pain: Plan Ascites on the background of ESLD 57-year-old lady with PMH of cirrhosis and recurrent ascites status post outpatient paracentesis came to the hospital with complaint of abdominal distention associated with some pain. Patient is a status post paracentesis 5.3 L on 05/19, patient reports improvement in her comfort level and her pain. Ascites fluid with WBC of 145, follow-up on culture. Peritoneal cultx - n egative. Acute UTI: Patient started on Rocephin 05/19, urine cultx shows mixed carla. will repeat. Electrolyte abnormalities: Monitor replete. Other chronic medical conditions: Continue rifaximin/lactulose/Aldactone/Lasix other medications as able. DVT prophylaxis: Heparin subcu Admission and Anticipated Discharge Date Admission Date: May 21, 2022 Subjective Patient seen in follow-up of abdominal pain and large volume ascites on the background of history of cirrhosis. Patient is lying in bed, on room air, NAD Reports that she feels her abdomen is filling up, and feels she may need paracentesis again soon/ poss. Tuesday. She is asking about having a permanent drain placed. Cont. to have loose stools Reports she did not get the stent done as discussed on previous discharge from the hospital. But she follows w/ palliative medicine now as outpt. Review of Systems Review of Systems: All systems reviewed & are unremarkable except as noted in Subjective Physical Exam Physical Exam: GENERAL: Alert and oriented x3. NAD, on RA. HEENT: No pallor, no icterus. Pupils equal, round and reactive to light. Oral mucosa moist. NECK: No JVD, no neck masses. HEART: S1 and S2 heard. Regular rate and rhythm. No murmur, no gallop. RESPIRATORY SYSTEM: Normal AP diameter. No accessory muscle use. No wheezing, no crackles. ABDOMEN: Soft, bowel sounds present, mild tender - appears chronic, + distention NEURO: No facial droop. Speech is clear. Obeys simple commands. Moves extremities. EXTREMITIES: No edema, no erythema seen. Results & Data Results & Data Vital Signs (Past 12 Hours) Vital Signs Temp Pulse Resp BP BP Pulse Ox O2 Del Method 05/22/22 08:01 36.8 C 80 12 98/60 L 96 Room Air 05/21/22 23:57 36.6 C 72 18 86/48 L 94 Room Air Medications Administered Current Inpatient Medications Lipase/Protease/Amylase (Pancreaze (Lipase 10,500u) Cap) 3 cap PO TIDM [facility] Stop: 06/18/22 07:59 Last Admin: 05/22/22 08:34 Dose: 3 cap Citalopram Hydrobromide (Citalopram 20 Mg Tab) 20 mg PO QAM [facility] Stop: 06/18/22 08:59 Last Admin: 05/22/22 08:35 Dose: 20 mg Colestipol HCl (Colestipol Hcl 1 Gm Tab) 2 gm PO BID [facility] Stop: 06/18/22 08:59 Last Admin: 05/22/22 08:35 Dose: 2 gm Folic Acid (Folic Acid 1 Mg Tab) 1 mg PO QAM [facility] Stop: 06/18/22 08:59 Last Admin: 05/22/22 08:35 Dose: 1 mg Furosemide (Furosemide 40 Mg Tab) 40 mg PO BID [facility] Stop: 06/18/22 08:59 Last Admin: 05/22/22 08:35 Dose: 40 mg Gabapentin (Gabapentin 100 Mg Cap) 100 mg PO HS [facility] Stop: 06/18/22 20:59 Last Admin: 05/21/22 19:46 Dose: 100 mg Gabapentin (Gabapentin 600 Mg Tab) 600 mg PO HS [facility] Stop: 06/18/22 20:59 Last Admin: 05/21/22 19:45 Dose: 600 mg Heparin Sodium (Porcine) (Heparin Sod 5,000 Unit/0.5 Ml Vial) 5,000 units SQ Q12 [facility] Stop: 06/19/22 20:59 Last Admin: 05/22/22 08:36 Dose: 5,000 units Ceftriaxone Sodium 2,000 mg/ (Dextrose) 70 mls @ 100 mls/hr IV Q24H [facility]; Protocol Stop: 05/29/22 09:59 Last Admin: 05/22/22 09:48 Dose: 100 mls/hr Lactobacillus Acidophilus (Advanced Probiotic 1250 Mg Capsule) 2 cap PO DAILY [facility] Stop: 06/18/22 08:59 Last Admin: 05/22/22 08:35 Dose: 2 cap Lactulose (Lactulose Syrup 20 Gm/30 Ml Udc) 20 gm PO TID [facility] Stop: 06/19/22 17:29 Last Admin: 05/22/22 08:36 Dose: Not Given Lidocaine (Lidocaine 5% 1 Patch) 1 patch TD QAM PRN PRN Reason: Pain Stop: 06/18/22 01:48 Magnesium Oxide (Magnesium Oxide 400 Mg Tab) 400 mg PO QAM [facility] Stop: 06/18/22 08:59 Last Admin: 05/22/22 08:35 Dose: 400 mg Midodrine (Midodrine Hcl 2.5 Mg Tab) 5 mg PO TIDM [facility] Stop: 06/18/22 08:59 Last Admin: 05/22/22 08:34 Dose: 5 mg Miscellaneous (Remove Lidoderm Patch) 1 each N/A DAILY@2100 [facility] Stop: 06/18/22 20:59 Last Admin: 05/21/22 19:47 Dose: Not Given Morphine Sulfate (Morphine Sulfate 4 Mg/Ml 1 Ml Carp\Vial) 3 mg IV Q4H PRN PRN Reason: Severe Pain (Scale 7, 8, 9,10) Stop: 06/02/22 01:48 Last Admin: 05/22/22 08:57 Dose: 3 mg Multivitamins (Multivitamin Tab) 1 tab PO QAM [facility] Stop: 06/18/22 08:59 Last Admin: 05/22/22 08:35 Dose: 1 tab Ondansetron HCl (Ondansetron 4 Mg Od Tab) 4 mg PO Q6H PRN PRN Reason: Nausea Stop: 06/19/22 17:20 Last Admin: 05/22/22 07:33 Dose: 4 mg Oxycodone HCl (Oxycodone Hcl Ir 5 Mg Tab (Immediate Release)) 5 mg PO Q4H PRN PRN Reason: Moderate Pain (Scale 4, 5, 6) Stop: 06/02/22 01:48 Last Admin: 05/22/22 06:37 Dose: 5 mg Pantoprazole Sodium (Pantoprazole 40 Mg Tab) 40 mg PO BID [facility] Stop: 06/18/22 08:59 Last Admin: 05/22/22 08:35 Dose: 40 mg Potassium Chloride (Potassium Chloride Crtab 20 Meq Tabcr) 20 meq PO BID17 [facility] Stop: 06/18/22 08:59 Last Admin: 05/22/22 08:32 Dose: 20 meq Rifaximin (Rifaximin 550 Mg Tablet) 550 mg PO BID [facility] Stop: 06/18/22 08:59 Last Admin: 05/22/22 08:35 Dose: 550 mg Spironolactone (Spironolactone 100 Mg Tab) 100 mg PO DAILY [facility] Stop: 06/18/22 08:59 Last Admin: 05/22/22 08:35 Dose: 100 mg Thiamine HCl (Thiamine Hcl 100 Mg Tab) 100 mg PO QAM [facility] Stop: 06/18/22 08:59 Last Admin: 05/22/22 08:35 Dose: 100 mg (1) Abdominal pain Abdominal location: generalized Qualified Code(s): R10.84 - Generalized abdominal pain
[2022-05-22 11:18] LABS: Appearance Urine Clear (Clear); Bilirubin Urine Negative (Negative); Blood Urine Negative (Negative); Color Urine Yellow; Glucose Urine UA Negative (Negative); Ketones Urine Negative (Negative); Leukocyte Esterase Urine Negative (Negative); Nitrite Urine Negative (Negative); Protein Urine Negative (Negative); Specific Gravity Urine 1.007 (1.000-1.030); Urobilinogen Urine Negative (Negative); pH Urine 6.5 (4.5-7.5)
[2022-05-22] MEDS: GABAPENTIN 600 MG TAB PO SCH (20:06)
[2022-05-22] MEDS: GABAPENTIN 100 MG CAP PO SCH (20:06)
[2022-05-23] MEDS: oxyCODONE HCL IR 5 MG TAB (IMMEDIATE RELEASE) PO PRN ×6 (01:10→23:41)
[2022-05-23] MEDS: MoRPHine SULFATE 4 MG/ML 1 ML CARP\\VIAL IV PRN ×5 (02:21→21:42)
[2022-05-23 06:41] LABS: Hematocrit (blood only) 29.7 % (37.0-47.0); Hemoglobin 9.4 g/dl (12.0-16.0); Mean Corpuscular Hemoglobin 25.5 pg (25.0-34.0); Mean Corpuscular Hgb Conc 31.6 g/dL (32.0-36.0); Mean Corpuscular Volume 80.5 fL (80.0-100.0); Platelet Count 94 K/uL (130-400); Red Blood Count 3.69 M/uL (4.20-5.40); White Blood Count 1.32 K/ul (4.8-10.8)
[2022-05-23 06:59] LABS: BUN Creatinine Ratio 16.4 (10-20); Calcium 8.2 mg/dl (8.6-10.3); Creatinine Clr Calc Pharmacy 102.3 ml/min; Est GFR (African American) 119.8 ml/min; Est GFR (Non-African American) 103.4 ml/min; Magnesium 1.6 mg/dl (1.7-2.4); Phosphorus 4.2 mg/dl (2.5-4.9); Potassium 3.9 mmol/L (3.5-5.1)
[2022-05-23] MEDS: PANCREAZE (LIPASE 10,500U) CAP PO SCH ×3 (08:03→17:23)
[2022-05-23] MEDS: MIDODRINE HCL 2.5 MG TAB PO SCH ×3 (08:03→17:23)
[2022-05-23] MEDS: ONDANSETRON 4 MG OD TAB PO PRN (08:10)
[2022-05-23] MEDS: LACTULOSE SYRUP 20 GM/30 ML UDC PO SCH ×3 (08:40→19:42)
[2022-05-23] MEDS: COLESTIPOL HCL 1 GM TAB PO SCH ×2 (08:43→19:40)
[2022-05-23] MEDS: FUROSEMIDE 40 MG TAB PO SCH ×2 (08:43→19:43)
[2022-05-23] MEDS: CITALOPRAM 20 MG TAB PO SCH (08:43)
[2022-05-23] MEDS: POTASSIUM CHLORIDE CRTAB 20 MEQ TABCR PO SCH ×2 (08:43→17:24)
[2022-05-23] MEDS: FOLIC ACID 1 MG TAB PO SCH (08:43)
[2022-05-23] MEDS: PANTOprazole 40 MG TAB PO SCH ×2 (08:43→19:41)
[2022-05-23] MEDS: MULTIVITAMIN TAB PO SCH (08:43)
[2022-05-23] MEDS: rifAXIMin 550 MG TABLET PO SCH ×2 (08:43→19:40)
[2022-05-23] MEDS: HEPARIN SOD 5,000 UNIT/0.5 ML VIAL SQ SCH ×2 (08:44→19:42)
[2022-05-23] MEDS: SPIRONOLACTONE 100 MG TAB PO SCH (09:26)
[2022-05-23] MEDS: THIAMINE HCL 100 MG TAB PO SCH (09:26)
[2022-05-23] MEDS: ADVANCED PROBIOTIC 1250 MG CAPSULE PO SCH (09:26)
[2022-05-23] MEDS: MAGNESIUM OXIDE 400 MG TAB PO SCH (09:26)
[2022-05-23] MEDS: cefTRIAXone SODIUM 2,000 MG in DEXTROSE 5% 50 ML IV SCH (10:12)
--- NOTE | 2022-05-23 13:29 | Hospitalist Progress Note ---
Date of Service May 23, 2022 Assessment & Plan (1) Abdominal pain: Plan Ascites on the background of ESLD 57-year-old F with hx of cirrhosis and recurrent ascites status post outpatient paracentesis came to the hospital with complaint of abdominal distention associated with some pain. Patient is a status post paracentesis 5.3 L on 05/19, patient reports improvement in her comfort level and her pain. Ascites fluid with WBC of 145, follow-up on culture. Peritoneal cultx - so far negative. Feels that her abdomen is more distended again and filling up w/ fluid. Possibly attempt paracentesis tomorrow. Acute UTI: Patient started on Rocephin 05/19, urine cultx shows mixed carla. repeat UA negative. Electrolyte abnormalities: Monitor replete. Other chronic medical conditions: Continue rifaximin/lactulose/Aldactone/Lasix other medications as able. DVT prophylaxis: Heparin subcu Admission and Anticipated Discharge Date Admission Date: May 21, 2022 Subjective Patient seen in follow-up of abdominal pain and large volume ascites on the background of history of cirrhosis. Patient is lying in bed, on room air, NAD Reports that she feels her abdomen is filling up, and feels she may need paracentesis again soon/ poss. Tuesday. She is asking about having a permanent drain placed. Does not feel comfortable about going home. Reports she did not get the stent done as discussed on previous discharge from the hospital. But she follows w/ palliative medicine now as outpt. Review of Systems 2 Review of Systems: All systems reviewed & are unremarkable except as noted in Subjective Physical Exam Physical Exam: GENERAL: Alert and oriented x3. NAD, on RA. HEENT:NC/AT. Pupils equal, round and reactive to light. Oral mucosa moist. NECK: No JVD, no neck masses. HEART: S1 and S2 heard. Regular rate and rhythm. No murmur, no gallop. RESPIRATORY: Normal AP diameter. No accessory muscle use. No wheezing, no crackles. ABDOMEN: Soft, bowel sounds present, mild tender - appears chronic, + distention NEURO: No facial droop. Speech is clear. Obeys simple commands. Moves extremities. EXTREMITIES: No edema, no erythema seen. Results & Data Results & Data Vital Signs (Past 12 Hours) Vital Signs Temp Pulse Resp BP Pulse Ox O2 Del Method 05/23/22 07:46 36.7 C 72 14 97/60 L 97 Room Air Laboratory Results 05/23/22 05/23/22 Range/Units 05:38 05:38 WBC 1.32 L (4.8-10.8) K/ul RBC 3.69 L (4.20-5.40) M/uL Hgb 9.4 L (12.0-16.0) g/dl Hct 29.7 L (37.0-47.0) % MCV 80.5 (80.0-100.0) fL MCH 25.5 (25.0-34.0) pg MCHC 31.6 L (32.0-36.0) g/dL RDW Std Deviation 65.0 H (36.4-46.3) fL RDW Coeff of Chetan 22.0 H (11.5-14.5) % Plt Count 94 L (130-400) K/uL Sodium 138 (136-145) mmol/L Potassium 3.9 (3.5-5.1) mmol/L Chloride 101 (98-107) mmol/L Carbon Dioxide 30 (21-32) mmol/L Anion Gap 7 (3-11) BUN 9 (6-23) mg/dl Creatinine 0.55 L (0.6-1.2) mg/dl Est Cr Clr Drug Dosing 102.3 ml/min Est GFR ( Amer) 119.8 ml/min Est GFR (Non-Af Amer) 103.4 ml/min BUN/Creatinine Ratio 16.4 (10-20) Glucose 135 H (70-99(Fasting)) mg/dl Calcium 8.2 L (8.6-10.3) mg/dl Phosphorus 4.2 (2.5-4.9) mg/dl Magnesium 1.6 L (1.7-2.4) mg/dl Medications Administered Current Inpatient Medications Lipase/Protease/Amylase (Pancreaze (Lipase 10,500u) Cap) 3 cap PO TIDM [facility] Stop: 06/18/22 07:59 Last Admin: 05/23/22 11:51 Dose: 3 cap Citalopram Hydrobromide (Citalopram 20 Mg Tab) 20 mg PO QAM [facility] Stop: 06/18/22 08:59 Last Admin: 05/23/22 08:43 Dose: 20 mg Colestipol HCl (Colestipol Hcl 1 Gm Tab) 2 gm PO BID [facility] Stop: 06/18/22 08:59 Last Admin: 05/23/22 08:43 Dose: 2 gm Folic Acid (Folic Acid 1 Mg Tab) 1 mg PO QAM [facility] Stop: 06/18/22 08:59 Last Admin: 05/23/22 08:43 Dose: 1 mg Furosemide (Furosemide 40 Mg Tab) 40 mg PO BID [facility] Stop: 06/18/22 08:59 Last Admin: 05/23/22 08:43 Dose: 40 mg Gabapentin (Gabapentin 100 Mg Cap) 100 mg PO HS [facility] Stop: 06/18/22 20:59 Last Admin: 05/22/22 20:06 Dose: 100 mg Gabapentin (Gabapentin 600 Mg Tab) 600 mg PO HS [facility] Stop: 06/18/22 20:59 Last Admin: 05/22/22 20:06 Dose: 600 mg Heparin Sodium (Porcine) (Heparin Sod 5,000 Unit/0.5 Ml Vial) 5,000 units SQ Q12 [facility] Stop: 06/19/22 20:59 Last Admin: 05/23/22 08:44 Dose: 5,000 units Ceftriaxone Sodium 2,000 mg/ (Dextrose) 70 mls @ 100 mls/hr IV Q24H [facility]; Protocol Stop: 05/29/22 09:59 Last Infusion: 05/23/22 11:13 Dose: Infused Lactobacillus Acidophilus (Advanced Probiotic 1250 Mg Capsule) 2 cap PO DAILY [facility] Stop: 06/18/22 08:59 Last Admin: 05/23/22 09:26 Dose: 2 cap Lactulose (Lactulose Syrup 20 Gm/30 Ml Udc) 20 gm PO TID [facility] Stop: 06/19/22 17:29 Last Admin: 05/23/22 08:40 Dose: Not Given Lidocaine (Lidocaine 5% 1 Patch) 1 patch TD QAM PRN PRN Reason: Pain Stop: 06/18/22 01:48 Last Admin: 05/22/22 21:44 Dose: 1 patch Magnesium Oxide (Magnesium Oxide 400 Mg Tab) 400 mg PO QAM [facility] Stop: 06/18/22 08:59 Last Admin: 05/23/22 09:26 Dose: 400 mg Midodrine (Midodrine Hcl 2.5 Mg Tab) 5 mg PO TIDM [facility] Stop: 06/18/22 08:59 Last Admin: 05/23/22 11:51 Dose: 5 mg Miscellaneous (Remove Lidoderm Patch) 1 each N/A DAILY@2100 [facility] Stop: 06/18/22 20:59 Last Admin: 05/22/22 20:07 Dose: Not Given Morphine Sulfate (Morphine Sulfate 4 Mg/Ml 1 Ml Carp\Vial) 3 mg IV Q4H PRN PRN Reason: Severe Pain (Scale 7, 8, 9,10) Stop: 06/02/22 01:48 Last Admin: 05/23/22 12:10 Dose: 3 mg Multivitamins (Multivitamin Tab) 1 tab PO QAM [facility] Stop: 06/18/22 08:59 Last Admin: 05/23/22 08:43 Dose: 1 tab Ondansetron HCl (Ondansetron 4 Mg Od Tab) 4 mg PO Q6H PRN PRN Reason: Nausea Stop: 06/19/22 17:20 Last Admin: 05/23/22 08:10 Dose: 4 mg Oxycodone HCl (Oxycodone Hcl Ir 5 Mg Tab (Immediate Release)) 5 mg PO Q4H PRN PRN Reason: Moderate Pain (Scale 4, 5, 6) Stop: 06/02/22 01:48 Last Admin: 05/23/22 10:48 Dose: 5 mg Pantoprazole Sodium (Pantoprazole 40 Mg Tab) 40 mg PO BID [facility] Stop: 06/18/22 08:59 Last Admin: 05/23/22 08:43 Dose: 40 mg Potassium Chloride (Potassium Chloride Crtab 20 Meq Tabcr) 20 meq PO BID17 [facility] Stop: 06/18/22 08:59 Last Admin: 05/23/22 08:43 Dose: 20 meq Rifaximin (Rifaximin 550 Mg Tablet) 550 mg PO BID [facility] Stop: 06/18/22 08:59 Last Admin: 05/23/22 08:43 Dose: 550 mg Spironolactone (Spironolactone 100 Mg Tab) 100 mg PO DAILY [facility] Stop: 06/18/22 08:59 Last Admin: 05/23/22 09:26 Dose: 100 mg Thiamine HCl (Thiamine Hcl 100 Mg Tab) 100 mg PO QAM [facility] Stop: 06/18/22 08:59 Last Admin: 05/23/22 09:26 Dose: 100 mg (1) Abdominal pain Abdominal location: generalized Qualified Code(s): R10.84 - Generalized abdominal pain
[2022-05-23] MEDS: GABAPENTIN 100 MG CAP PO SCH (19:40)
[2022-05-23] MEDS: GABAPENTIN 600 MG TAB PO SCH (19:41)
[2022-05-24] MEDS: MoRPHine SULFATE 4 MG/ML 1 ML CARP\\VIAL IV PRN ×6 (01:49→23:54)
[2022-05-24] MEDS: oxyCODONE HCL IR 5 MG TAB (IMMEDIATE RELEASE) PO PRN ×5 (04:13→21:37)
[2022-05-24] MEDS: ONDANSETRON 4 MG OD TAB PO PRN ×2 (07:28→17:26)
[2022-05-24] MEDS: PANCREAZE (LIPASE 10,500U) CAP PO SCH ×3 (07:28→16:47)
[2022-05-24] MEDS: MIDODRINE HCL 2.5 MG TAB PO SCH ×3 (07:29→16:47)
[2022-05-24] MEDS: COLESTIPOL HCL 1 GM TAB PO SCH ×2 (08:41→19:41)
[2022-05-24] MEDS: POTASSIUM CHLORIDE CRTAB 20 MEQ TABCR PO SCH ×2 (08:41→16:47)
[2022-05-24] MEDS: rifAXIMin 550 MG TABLET PO SCH ×2 (08:42→19:40)
[2022-05-24] MEDS: ADVANCED PROBIOTIC 1250 MG CAPSULE PO SCH (08:43)
[2022-05-24] MEDS: LACTULOSE SYRUP 20 GM/30 ML UDC PO SCH ×3 (08:44→19:42)
[2022-05-24] MEDS: FUROSEMIDE 40 MG TAB PO SCH ×2 (08:45→19:43)
[2022-05-24] MEDS: MAGNESIUM OXIDE 400 MG TAB PO SCH (08:45)
[2022-05-24] MEDS: SPIRONOLACTONE 100 MG TAB PO SCH (08:45)
[2022-05-24] MEDS: PANTOprazole 40 MG TAB PO SCH ×2 (08:47→19:43)
[2022-05-24] MEDS: THIAMINE HCL 100 MG TAB PO SCH (08:47)
[2022-05-24] MEDS: CITALOPRAM 20 MG TAB PO SCH (08:47)
[2022-05-24] MEDS: MULTIVITAMIN TAB PO SCH (08:47)
[2022-05-24] MEDS: FOLIC ACID 1 MG TAB PO SCH (08:47)
[2022-05-24] MEDS: HEPARIN SOD 5,000 UNIT/0.5 ML VIAL SQ SCH ×2 (08:48→19:42)
[2022-05-24] MEDS: cefTRIAXone SODIUM 2,000 MG in DEXTROSE 5% 50 ML IV SCH (10:19)
--- NOTE | 2022-05-24 17:58 | Hospitalist Progress Note ---
Date of Service May 24, 2022 Assessment & Plan (1) Abdominal pain: Plan: Ascites on the background of ESLD 57-year-old F with hx of cirrhosis and recurrent ascites status post outpatient paracentesis came to the hospital with complaint of abdominal distention ass ociated with some pain. Patient is a status post paracentesis 5.3 L on 05/19, patient reports improvement in her comfort level and her pain. Ascites fluid with WBC of 145, follow-up on culture. Peritoneal cultx - so far negative. Feels that her abdomen is more distended again and filling up w/ fluid. Pain is persisting-advised not to use more of narcotics pain medication Advised to walk around in the room with a possible discharge tomorrow Acute UTI: Patient started on Rocephin 06/18, urine cultx shows mixed carla. repeat UA negative. Electrolyte abnormalities: Monitor replete. DVT prophylaxis: Heparin subcu (2) Abdominal ascites: Plan: Requires recurrent paracentesis Abdomen is minimally distended but soft Mild fluid in the abdomen Likely to be discharged tomorrow with outpatient paracentesis (3) Cirrhosis: Plan: With history of esophageal varices and GI bleed No acute issues at this time except ascites Continue rifaximin/lactulose/Aldactone/Lasix other medications as able. (4) Alcoholism with alcohol dependence: Admission and Anticipated Discharge Date Admission Date: May 21, 2022 Subjective 05/24/2022 The patient was seen and examined in medical floor She complains to abdominal pain with minimal distention Has been ambulating in the room without any difficulties She will be discharged home tomorrow Review of Systems Review of Systems: All systems reviewed and are unremarkable except as noted below Physical Exam Physical Exam: Lying in bed comfortably Constitutional: average body habitus; not ill appearing Eyes: PERRL, conjunctivae normal, anicteric sclerae ENMT: external ear and nose normal, oropharynx normal Neck: trachea midline, no thyromegaly Respiratory: no respiratory distress Auscultation: lungs clear to auscultation bilaterally Cardiovascular: Rate/Rhythm: regular rate and regular rhythm; not tachycardic Heart Sounds: normal S1 and normal S2; no murmur Extremities: no edema Gastrointestinal (Abdomen): Inspection/Auscultation: + abdomen distended ( Minimally distended) and normal bowel sounds Percussion/Palpation: + abdomen tender and abdomen soft Musculoskeletal: No acute arthritis involving any joint Neurologic: normal touch/pain/proprioception and + meningeal signs Psychiatric: A+Ox3, euthymic affect Lymphatic: no cervical or axillary lymphadenopathy Results & Data Results & Data Vital Signs (Past 12 Hours) Vital Signs Temp Pulse Resp BP BP Pulse Ox O2 Del Method 05/24/22 15:12 36.8 C 61 14 121/66 96 Room Air 05/24/22 07:36 36.9 C 68 14 85/56 L 96 Room Air Medications Administered Current Inpatient Medications Lipase/Protease/Amylase (Pancreaze (Lipase 10,500u) Cap) 3 cap PO TIDM [facility] Stop: 06/18/22 07:59 Last Admin: 05/24/22 16:47 Dose: 3 cap Citalopram Hydrobromide (Citalopram 20 Mg Tab) 20 mg PO QAM [facility] Stop: 06/18/22 08:59 Last Admin: 05/24/22 08:47 Dose: 20 mg Colestipol HCl (Colestipol Hcl 1 Gm Tab) 2 gm PO BID [facility] Stop: 06/18/22 08:59 Last Admin: 05/24/22 08:41 Dose: 2 gm Folic Acid (Folic Acid 1 Mg Tab) 1 mg PO QAM [facility] Stop: 06/18/22 08:59 Last Admin: 05/24/22 08:47 Dose: 1 mg Furosemide (Furosemide 40 Mg Tab) 40 mg PO BID [facility] Stop: 06/18/22 08:59 Last Admin: 05/24/22 08:45 Dose: 40 mg Gabapentin (Gabapentin 100 Mg Cap) 100 mg PO HS [facility] Stop: 06/18/22 20:59 Last Admin: 05/23/22 19:40 Dose: 100 mg Gabapentin (Gabapentin 600 Mg Tab) 600 mg PO HS [facility] Stop: 06/18/22 20:59 Last Admin: 05/23/22 19:41 Dose: 600 mg Heparin Sodium (Porcine) (Heparin Sod 5,000 Unit/0.5 Ml Vial) 5,000 units SQ Q12 [facility] Stop: 06/19/22 20:59 Last Admin: 05/24/22 08:48 Dose: 5,000 units Ceftriaxone Sodium 2,000 mg/ (Dextrose) 70 mls @ 100 mls/hr IV Q24H [facility]; Protocol Stop: 05/29/22 09:59 Last Infusion: 05/24/22 11:26 Dose: Infused Lactobacillus Acidophilus (Advanced Probiotic 1250 Mg Capsule) 2 cap PO DAILY [facility] Stop: 06/18/22 08:59 Last Admin: 05/24/22 08:43 Dose: 2 cap Lactulose (Lactulose Syrup 20 Gm/30 Ml Udc) 20 gm PO TID [facility] Stop: 06/19/22 17:29 Last Admin: 05/24/22 13:01 Dose: Not Given Lidocaine (Lidocaine 5% 1 Patch) 1 patch TD QAM PRN PRN Reason: Pain Stop: 06/18/22 01:48 Last Admin: 05/22/22 21:44 Dose: 1 patch Magnesium Oxide (Magnesium Oxide 400 Mg Tab) 400 mg PO QAM [facility] Stop: 06/18/22 08:59 Last Admin: 05/24/22 08:45 Dose: 400 mg Midodrine (Midodrine Hcl 2.5 Mg Tab) 5 mg PO TIDM [facility] Stop: 06/18/22 08:59 Last Admin: 05/24/22 16:47 Dose: 5 mg Miscellaneous (Remove Lidoderm Patch) 1 each N/A DAILY@2100 [facility] Stop: 06/18/22 20:59 Last Admin: 05/23/22 19:40 Dose: 1 each Morphine Sulfate (Morphine Sulfate 4 Mg/Ml 1 Ml Carp\Vial) 3 mg IV Q4H PRN PRN Reason: Severe Pain (Scale 7, 8, 9,10) Stop: 06/02/22 01:48 Last Admin: 05/24/22 15:06 Dose: 3 mg Multivitamins (Multivitamin Tab) 1 tab PO QAM [facility] Stop: 06/18/22 08:59 Last Admin: 05/24/22 08:47 Dose: 1 tab Ondansetron HCl (Ondansetron 4 Mg Od Tab) 4 mg PO Q6H PRN PRN Reason: Nausea Stop: 06/19/22 17:20 Last Admin: 05/24/22 17:26 Dose: 4 mg Oxycodone HCl (Oxycodone Hcl Ir 5 Mg Tab (Immediate Release)) 5 mg PO Q4H PRN PRN Reason: Moderate Pain (Scale 4, 5, 6) Stop: 06/02/22 01:48 Last Admin: 05/24/22 17:01 Dose: 5 mg Pantoprazole Sodium (Pantoprazole 40 Mg Tab) 40 mg PO BID [facility] Stop: 06/18/22 08:59 Last Admin: 05/24/22 08:47 Dose: 40 mg Potassium Chloride (Potassium Chloride Crtab 20 Meq Tabcr) 20 meq PO BID17 [facility] Stop: 06/18/22 08:59 Last Admin: 05/24/22 16:47 Dose: 20 meq Rifaximin (Rifaximin 550 Mg Tablet) 550 mg PO BID [facility] Stop: 06/18/22 08:59 Last Admin: 05/24/22 08:42 Dose: 550 mg Spironolactone (Spironolactone 100 Mg Tab) 100 mg PO DAILY [facility] Stop: 06/18/22 08:59 Last Admin: 05/24/22 08:45 Dose: 100 mg Thiamine HCl (Thiamine Hcl 100 Mg Tab) 100 mg PO QAM [facility] Stop: 06/18/22 08:59 Last Admin: 05/24/22 08:47 Dose: 100 mg (1) Abdominal pain Abdominal location: generalized Qualified Code(s): R10.84 - Generalized abdominal pain (2) Abdominal ascites Ascites type: due to alcoholic cirrhosis Qualified Code(s): K70.31 - Alcoholic cirrhosis of liver with ascites (3) Cirrhosis Hepatic cirrhosis type: alcoholic cirrhosis Ascites presence: with ascites Qualified Code(s): K70.31 - Alcoholic cirrhosis of liver with ascites (4) Alcoholism with alcohol dependence Complication of substance-induced condition: uncomplicated Substance use status: in withdrawal Qualified Code(s): F10.230 - Alcohol dependence with wit hdrawal, uncomplicated
[2022-05-24] MEDS: GABAPENTIN 100 MG CAP PO SCH (19:39)
[2022-05-24] MEDS: GABAPENTIN 600 MG TAB PO SCH (19:42)
[2022-05-25] MEDS: oxyCODONE HCL IR 5 MG TAB (IMMEDIATE RELEASE) PO PRN ×6 (01:35→23:07)
[2022-05-25] MEDS: MoRPHine SULFATE 4 MG/ML 1 ML CARP\\VIAL IV PRN ×5 (03:54→20:45)
[2022-05-25 08:10] LABS: Albumin Globulin Ratio 1.3 (0.9-2); Albumin Level 3.3 gm/dl (3.4-5.0); BUN Creatinine Ratio 21.2 (10-20); Bilirubin,Total 0.6 mg/dl (0.2-1.0); Calcium 8.5 mg/dl (8.6-10.3); Creatinine Clr Calc Pharmacy 108.2 ml/min; Est GFR (African American) 122.1 ml/min; Est GFR (Non-African American) 105.3 ml/min; Globulin 2.6 gm/dl (2.5-4.0); Potassium 4.4 mmol/L (3.5-5.1); Total Protein 5.9 gm/dl (6.0-8.3)
[2022-05-25 08:21] LABS: Hematocrit (blood only) 28.4 % (37.0-47.0); Hemoglobin 9.1 g/dl (12.0-16.0); Mean Corpuscular Hemoglobin 25.5 pg (25.0-34.0); Mean Corpuscular Volume 79.6 fL (80.0-100.0); Platelet Count 83 K/uL (130-400); RDW Coefficient of Variation 21.5 % (11.5-14.5); RDW Standard Deviation 62.4 fL (36.4-46.3); Red Blood Count 3.57 M/uL (4.20-5.40); White Blood Count 1.29 K/ul (4.8-10.8)
[2022-05-25] MEDS: rifAXIMin 550 MG TABLET PO SCH ×2 (08:21→20:46)
[2022-05-25] MEDS: POTASSIUM CHLORIDE CRTAB 20 MEQ TABCR PO SCH ×2 (08:21→16:50)
[2022-05-25] MEDS: PANTOprazole 40 MG TAB PO SCH ×2 (08:21→20:46)
[2022-05-25] MEDS: PANCREAZE (LIPASE 10,500U) CAP PO SCH ×3 (08:21→16:49)
[2022-05-25] MEDS: FOLIC ACID 1 MG TAB PO SCH (08:21)
[2022-05-25] MEDS: SPIRONOLACTONE 100 MG TAB PO SCH (08:21)
[2022-05-25] MEDS: ADVANCED PROBIOTIC 1250 MG CAPSULE PO SCH (08:21)
[2022-05-25] MEDS: LACTULOSE SYRUP 20 GM/30 ML UDC PO SCH ×3 (08:22→20:29)
[2022-05-25] MEDS: MIDODRINE HCL 2.5 MG TAB PO SCH ×3 (08:22→16:48)
[2022-05-25] MEDS: CITALOPRAM 20 MG TAB PO SCH (08:22)
[2022-05-25] MEDS: MULTIVITAMIN TAB PO SCH (08:22)
[2022-05-25] MEDS: HEPARIN SOD 5,000 UNIT/0.5 ML VIAL SQ SCH ×2 (08:22→20:29)
[2022-05-25] MEDS: FUROSEMIDE 40 MG TAB PO SCH ×2 (08:22→20:45)
[2022-05-25] MEDS: COLESTIPOL HCL 1 GM TAB PO SCH ×2 (08:22→20:45)
[2022-05-25] MEDS: MAGNESIUM OXIDE 400 MG TAB PO SCH (08:22)
[2022-05-25] MEDS: THIAMINE HCL 100 MG TAB PO SCH (08:22)
[2022-05-25] MEDS: ONDANSETRON 4 MG OD TAB PO PRN (08:53)
[2022-05-25 09:13] LABS: Anisocytosis Present; Basophils # (auto) 0.01 K/uL (0-0.2); Basophils % (auto) 0.8 %; Eosinophils # (auto) 0.03 K/uL (0-0.50); Eosinophils % (auto) 2.3 %; Immature Granulocytes # (auto) 0.01 K/uL (0.01-0.20); Immature Granulocytes % (auto) 0.8 %; Lymphocytes # (auto) 0.34 K/uL (1.2-3.4); Lymphocytes % (auto) 26.4 %; Monocytes # (auto) 0.25 K/uL (0.11-0.59); Monocytes % (auto) 19.4 %; Neutrophils % (auto) 50.3 %; Platelet Estimate Decreased (Normal)
[2022-05-25] MEDS: cefTRIAXone SODIUM 2,000 MG in DEXTROSE 5% 50 ML IV SCH (10:14)
--- NOTE | 2022-05-25 17:21 | Hospitalist Progress Note ---
Date of Service May 25, 2022 Assessment & Plan (1) Abdominal pain: Plan: Ascites on the background of ESLD 57-year-old F with hx of cirrhosis and recurrent ascites status post outpatient paracentesis came to the hospital with complaint of abdominal distention ass ociated with some pain. Patient is a status post paracentesis 5.3 L on 05/19, patient reports improvement in her comfort level and her pain. Ascites fluid with WBC of 145, follow-up on culture. Peritoneal cultx - so far negative. Feels that her abdomen is more distended again and filling up w/ fluid. Pain is persisting-advised not to use more of narcotics pain medication Still complains to have some abdominal pain and distention Nausea but no vomiting Acute UTI: Patient started on Rocephin 06/18, urine cultx shows mixed calra. repeat UA negative. Electrolyte abnormalities: Monitor replete. Antibiotic course is done DVT prophylaxis: Heparin subcu (2) Abdominal ascites: Plan: Requires recurrent paracentesis Abdomen is minimally distended but soft Mild fluid in the abdomen Likely to be discharged tomorrow with outpatient paracentesis Discussed with GI who will arrange for outpatient periodic paracentesis every month We will try to get paracentesis tomorrow before she goes home Strongly advised to ambulate in the hallway (3) Cirrhosis: Plan: With history of esophageal varices and GI bleed No acute issues at this time except ascites Continue rifaximin/lactulose/Aldactone/Lasix other medications as able. (4) Alcoholism with alcohol dependence: Plan: No signs and symptoms of withdrawal Admission and Anticipated Discharge Date Admission Date: May 21, 2022 Subjective 05/24/2022 The patient was seen and examined in medical floor She complains to abdominal pain with minimal distention Has been ambulating in the room without any difficulties She will be discharged home tomorrow 05/25/2022 The patient was seen and examined in medical floor She has been complaining of abdominal distention with pain and nausea Denies any shortness of breath associated with it Discussed with the GI who will schedule for outpatient periodic paracentesis We will try to do paracentesis tomorrow Review of Systems Review of Systems: All systems reviewed and are unremarkable except as noted below Physical Exam Physical Exam: Lying in bed comfortably Constitutional: average body habitus; not ill appearing Eyes: PERRL, conjunctivae normal, anicteric sclerae ENMT: external ear and nose normal, oropharynx normal Neck: trachea midline, no thyromegaly Respiratory: no respiratory distress Auscultation: lungs clear to auscultation bilaterally Cardiovascular: Rate/Rhythm: regular rate and regular rhythm; not tachycardic Heart Sounds: normal S1 and normal S2; no murmur Extremities: no edema Gastrointestinal (Abdomen): Inspection/Auscultation: + abdomen distended (Minimally distended) and normal bowel sounds Percussion/Palpation: + abdomen tender and abdomen soft Musculoskeletal: No acute arthritis involving any of the joint Neurologic: normal touch/pain/proprioception and + meningeal signs Psychiatric: A+Ox3, euthymic affect Lymphatic: no cervical or axillary lymphadenopathy Results & Data Results & Data Vital Signs (Past 12 Hours) Vital Signs Temp Pulse Resp BP BP Pulse Ox O2 Del Method 05/25/22 16:47 90/57 L 05/25/22 15:04 36.4 C L 68 16 90/50 L 96 Room Air 05/25/22 11:06 36.8 C 60 16 96/56 L 98 Room Air 05/25/22 08:09 36.8 C 67 16 105/57 L 98 Room Air Laboratory Results Short CBC 05/25/22 Range/Units 07:15 WBC 1.29 L (4.8-10.8) K/ul Hgb 9.1 L (12.0-16.0) g/dl Hct 28.4 L (37.0-47.0) % Plt Count 83 L (130-400) K/uL BMP 05/25/22 07:15 Sodium 136 Potassium 4.4 Chloride 99 Carbon Dioxide 33 H BUN 11 Creatinine 0.52 L Glucose 90 Calcium 8.5 L Liver Function 05/25/22 Range/Units 07:15 Total Bilirubin 0.6 (0.2-1.0) mg/dl AST 27 (13-39) U/L ALT 13 (7-52) U/L Alkaline Phosphatase 115 H (34-104) U/L Albumin 3.3 L (3.4-5.0) gm/dl Medications Administered Current Inpatient Medications Albumin Human (Albumin Human 25% 25gm/100 Ml Vial) 25 gm IV TODAY@1100,1300 [facility] Stop: 05/26/22 13:01 Lipase/Protease/Amylase (Pancreaze (Lipase 10,500u) Cap) 3 cap PO TIDM [facility] Stop: 06/18/22 07:59 Last Admin: 05/25/22 16:49 Dose: 3 cap Citalopram Hydrobromide (Citalopram 20 Mg Tab) 20 mg PO QAM [facility] Stop: 06/18/22 08:59 Last Admin: 05/25/22 08:22 Dose: 20 mg Colestipol HCl (Colestipol Hcl 1 Gm Tab) 2 gm PO BID [facility] Stop: 06/18/22 08:59 Last Admin: 05/25/22 08:22 Dose: 2 gm Folic Acid (Folic Acid 1 Mg Tab) 1 mg PO QAM [facility] Stop: 06/18/22 08:59 Last Admin: 05/25/22 08:21 Dose: 1 mg Furosemide (Furosemide 40 Mg Tab) 40 mg PO BID [facility] Stop: 06/18/22 08:59 Last Admin: 05/25/22 08:22 Dose: 40 mg Gabapentin (Gabapentin 100 Mg Cap) 100 mg PO HS [facility] Stop: 06/18/22 20:59 Last Admin: 05/24/22 19:39 Dose: 100 mg Gabapentin (Gabapentin 600 Mg Tab) 600 mg PO HS [facility] Stop: 06/18/22 20:59 Last Admin: 05/24/22 19:42 Dose: 600 mg Heparin Sodium (Porcine) (Heparin Sod 5,000 Unit/0.5 Ml Vial) 5,000 units SQ Q12 [facility] Stop: 06/19/22 20:59 Last Admin: 05/25/22 08:22 Dose: Not Given Ceftriaxone Sodium 2,000 mg/ (Dextrose) 70 mls @ 100 mls/hr IV Q24H [facility]HEL[facility]; Protoc ol Stop: 05/29/22 09:59 Last Infusion: 05/25/22 11:09 Dose: Infused Lactobacillus Acidophilus (Advanced Probiotic 1250 Mg Capsule) 2 cap PO DAILY [facility] Stop: 06/18/22 08:59 Last Admin: 05/25/22 08:21 Dose: 2 cap Lactulose (Lactulose Syrup 20 Gm/30 Ml Udc) 20 gm PO TID [facility] Stop: 06/19/22 17:29 Last Admin: 05/25/22 13:26 Dose: Not Given Lidocaine (Lidocaine 5% 1 Patch) 1 patch TD QAM PRN PRN Reason: Pain Stop: 06/18/22 01:48 Last Admin: 05/22/22 21:44 Dose: 1 patch Magnesium Oxide (Magnesium Oxide 400 Mg Tab) 400 mg PO QAM [facility] Stop: 06/18/22 08:59 Last Admin: 05/25/22 08:22 Dose: 400 mg Midodrine (Midodrine Hcl 2.5 Mg Tab) 5 mg PO TIDM [facility] Stop: 06/18/22 08:59 Last Admin: 05/25/22 16:48 Dose: 5 mg Miscellaneous (Remove Lidoderm Patch) 1 each N/A DAILY@2100 [facility] Stop: 06/18/22 20:59 Last Admin: 05/24/22 19:43 Dose: 1 each Morphine Sulfate (Morphine Sulfate 4 Mg/Ml 1 Ml Carp\Vial) 3 mg IV Q4H PRN PRN Reason: Severe Pain (Scale 7, 8, 9,10) Stop: 06/02/22 01:48 Last Admin: 05/25/22 16:44 Dose: 3 mg Multivitamins (Multivitamin Tab) 1 tab PO QAM [facility] Stop: 06/18/22 08:59 Last Admin: 05/25/22 08:22 Dose: 1 tab Ondansetron HCl (Ondansetron 4 Mg Od Tab) 4 mg PO Q6H PRN PRN Reason: Nausea Stop: 06/19/22 17:20 Last Admin: 05/25/22 08:53 Dose: 4 mg Oxycodone HCl (Oxycodone Hcl Ir 5 Mg Tab (Immediate Release)) 5 mg PO Q4H PRN PRN Reason: Moderate Pain (Scale 4, 5, 6) Stop: 06/02/22 01:48 Last Admin: 05/25/22 14:31 Dose: 5 mg Pantoprazole Sodium (Pantoprazole 40 Mg Tab) 40 mg PO BID [facility] Stop: 06/18/22 08:59 Last Admin: 05/25/22 08:21 Dose: 40 mg Potassium Chloride (Potassium Chloride Crtab 20 Meq Tabcr) 20 meq PO BID17 [facility] Stop: 06/18/22 08:59 Last Admin: 05/25/22 16:50 Dose: 20 meq Rifaximin (Rifaximin 550 Mg Tablet) 550 mg PO BID [facility] Stop: 06/18/22 08:59 Last Admin: 05/25/22 08:21 Dose: 550 mg Spironolactone (Spironolactone 100 Mg Tab) 100 mg PO DAILY [facility] Stop: 06/18/22 08:59 Last Admin: 05/25/22 08:21 Dose: 100 mg Thiamine HCl (Thiamine Hcl 100 Mg Tab) 100 mg PO QAM [facility] Stop: 06/18/22 08:59 Last Admin: 05/25/22 08:22 Dose: 100 mg (1) Abdominal pain Abdominal location: generalized Qualified Code(s): R10.84 - Generalized abdominal pain (2) Abdominal ascites Ascites type: due to alcoholic cirrhosis Qualified Code(s): K70.31 - Alcoholic cirrhosis of liver with ascites (3) Cirrhosis Hepatic cirrhosis type: alcoholic cirrhosis Ascites presence: with ascites Qualified Code(s): K70.31 - Alcoholic cirrhosis of liver with ascites (4) Alcoholism with alcohol dependence Complication of substance-induced condition: uncomplicated Substance use status: in withdrawal Qualified Code(s): F10.230 - Alcohol dependence with withdrawal, uncomplicated
[2022-05-25] MEDS: GABAPENTIN 600 MG TAB PO SCH (20:45)
[2022-05-25] MEDS: GABAPENTIN 100 MG CAP PO SCH (20:45)
[2022-05-26] MEDS: MoRPHine SULFATE 4 MG/ML 1 ML CARP\\VIAL IV PRN ×6 (00:57→21:29)
[2022-05-26] MEDS: oxyCODONE HCL IR 5 MG TAB (IMMEDIATE RELEASE) PO PRN ×6 (03:15→23:30)
[2022-05-26] MEDS: FUROSEMIDE 40 MG TAB PO SCH ×2 (07:24→20:47)
[2022-05-26] MEDS: MIDODRINE HCL 2.5 MG TAB PO SCH ×3 (07:25→17:30)
[2022-05-26] MEDS: MULTIVITAMIN TAB PO SCH (07:25)
[2022-05-26] MEDS: COLESTIPOL HCL 1 GM TAB PO SCH ×2 (07:25→20:48)
[2022-05-26] MEDS: rifAXIMin 550 MG TABLET PO SCH ×2 (07:25→20:48)
[2022-05-26] MEDS: MAGNESIUM OXIDE 400 MG TAB PO SCH (07:25)
[2022-05-26] MEDS: SPIRONOLACTONE 100 MG TAB PO SCH (07:25)
[2022-05-26] MEDS: THIAMINE HCL 100 MG TAB PO SCH (07:25)
[2022-05-26] MEDS: ADVANCED PROBIOTIC 1250 MG CAPSULE PO SCH (07:25)
[2022-05-26] MEDS: FOLIC ACID 1 MG TAB PO SCH (07:25)
[2022-05-26] MEDS: PANCREAZE (LIPASE 10,500U) CAP PO SCH ×3 (07:26→17:27)
[2022-05-26] MEDS: POTASSIUM CHLORIDE CRTAB 20 MEQ TABCR PO SCH ×2 (07:26→17:30)
[2022-05-26] MEDS: LACTULOSE SYRUP 20 GM/30 ML UDC PO SCH ×3 (07:27→20:49)
[2022-05-26] MEDS: PANTOprazole 40 MG TAB PO SCH ×2 (07:27→20:48)
[2022-05-26] MEDS: CITALOPRAM 20 MG TAB PO SCH (07:27)
[2022-05-26] MEDS: HEPARIN SOD 5,000 UNIT/0.5 ML VIAL SQ SCH ×2 (07:27→20:49)
[2022-05-26] MEDS: ONDANSETRON 4 MG OD TAB PO PRN (07:38)
[2022-05-26 09:08] LABS: Neutrophils # (auto) 0.65 K/uL (1.40-6.50)
[2022-05-26 09:11] LABS: BUN Creatinine Ratio 17.2 (10-20); Calcium 9.1 mg/dl (8.6-10.3); Est GFR (African American) 117.8 ml/min; Est GFR (Non-African American) 101.6 ml/min; Magnesium 1.9 mg/dl (1.7-2.4); Phosphorus 4.3 mg/dl (2.5-4.9); Potassium 4.4 mmol/L (3.5-5.1)
[2022-05-26] MEDS: cefTRIAXone SODIUM 2,000 MG in DEXTROSE 5% 50 ML IV SCH (09:32)
[2022-05-26] MEDS: ALBUMIN HUMAN IV SCH ×2 (10:51→14:50)
--- NOTE | 2022-05-26 13:54 | Ultrasound Report ---
Limited abdominal ultrasound INDICATION: Pre-paracentesis scan FINDINGS: Ultrasound imaging in all 4 abdominal quadrants demonstrates a scant amount of ascites. The refore paracentesis was not conducted. IMPRESSION: Scant ascites for which no paracentesis was performed. Performed, dictated, and signed by Zacarias Lopez PA-C; to be co-signed by Dr. Fredy Matos. Electronically signed by: Fredy [email or web address] M.D. 05/26/2022 2:19 PM
--- NOTE | 2022-05-26 16:00 | Hospitalist Progress Note ---
Date of Service May 26, 2022 Assessment & Plan (1) Abdominal pain: Plan: Ascites on the background of ESLD 57-year-old F with hx of cirrhosis and recurrent ascites status post outpatient paracentesis came to the hospital with complaint of abdominal distention ass ociated with some pain. Patient is a status post paracentesis 5.3 L on 05/19, patient reports improvement in her comfort level and her pain. Ascites fluid with WBC of 145, follow-up on culture. Peritoneal cultx - so far negative. Feels that her abdomen is more distended again and filling up w/ fluid. Pain is persisting-advised not to use more of narcotics pain medication Still complains to have some abdominal pain and distention Nausea but no vomiting Wanted to have paracentesis before she goes home tomorrow Ultrasound did not show much fluid to be drained Currently advised to move around and walk around the hallway To discharge tomorrow Acute UTI: Patient started on Rocephin 06/18, urine cultx shows mixed carla. repeat UA negative. Electrolyte abnormalities: Monitor replete. Antibiotic course is done DVT prophylaxis: Heparin subcu (2) Abdominal ascites: Plan: Requires recurrent paracentesis Abdomen is minimally distended but soft Mild fluid in the abdomen Likely to be discharged tomorrow with outpatient paracentesis Discussed with GI who will arrange for outpatient periodic paracentesis every month We will try to get paracentesis tomorrow before she goes home She is being scheduled to have paracentesis every month as an outpatient (3) Cirrhosis: Plan: With history of esophageal varices and GI bleed No acute issues at this time except ascites Continue rifaximin/lactulose/Aldactone/Lasix other medications as able. (4) Alcoholism with alcohol dependence: Plan: No signs and symptoms of withdrawal Admission and Anticipated Discharge Date Admission Date: May 21, 2022 Subjective 05/24/2022 The patient was seen and examined in medical floor She complains to abdominal pain with minimal distention Has been ambulating in the room without any difficulties She will be discharged home tomorrow 05/25/2022 The patient was seen and examined in medical floor She has been complaining of abdominal distention with pain and nausea Denies any shortness of breath associated with it Discussed with the GI who will schedule for outpatient periodic paracentesis We will try to do paracentesis tomorrow 05/26/2022 The patient was seen and examined in medical floor She complains to abdominal pain with nausea without any distention Ultrasound of the abdomen did not show much fluid to be drained She will be discharged home tomorrow Review of Systems Review of Systems: All systems reviewed and are unremarkable except as noted below Physical Exam Physical Exam: Lying in bed comfortably Constitutional: average body habitus; not ill appearing Eyes: PERRL, conjunctivae normal, anicteric sclerae ENMT: external ear and nose normal, oropharynx normal Neck: trachea midline, no thyromegaly Respiratory: no respiratory distress Auscultation: lungs clear to auscultation bilaterally Cardiovascular: Rate/Rhythm: regular rate and regular rhythm; not tachycardic Heart Sounds: normal S1 and normal S2; no murmur Extremities: no edema Gastrointestinal (Abdomen): Inspection/Auscultation: + abdomen distended (Minimally distended) and normal bowel sounds Percussion/Palpation: + abdomen tender and abdomen soft Musculoskeletal: No acute arthritis involving any joint Neurologic: normal touch/pain/proprioception and + meningeal signs Psychiatric: A+Ox3, euthymic affect Lymphatic: no cervical or axillary lymphadenopathy Results & Data Results & Data Vital Signs (Past 12 Hours) Vital Signs Temp Pulse Resp BP BP Pulse Ox O2 Del Method 05/26/22 15:55 36.8 C 74 16 91/49 L 95 Room Air 05/26/22 11:00 37.0 C 76 16 114/62 95 Room Air 05/26/22 07:18 36.7 C 77 18 96/56 L 96 Room Air Laboratory Results [facility] 05/26/22 08:21 Sodium 135 L Potassium 4.4 Chloride 98 Carbon Dioxide 33 H BUN 10 Creatinine 0.58 L Glucose 117 H Calcium 9.1 Medications Administered Current Inpatient Medications Lipase/Protease/Amylase (Pancreaze (Lipase 10,500u) Cap) 3 cap PO TIDM [facility] Stop: 06/18/22 07:59 Last Admin: 05/26/22 12:25 Dose: 3 cap Citalopram Hydrobromide (Citalopram 20 Mg Tab) 20 mg PO QAM [facility] Stop: 06/18/22 08:59 Last Admin: 05/26/22 07:27 Dose: 20 mg Colestipol HCl (Colestipol Hcl 1 Gm Tab) 2 gm PO BID [facility] Stop: 06/18/22 08:59 Last Admin: 05/26/22 07:25 Dose: 2 gm Folic Acid (Folic Acid 1 Mg Tab) 1 mg PO QAM [facility] Stop: 06/18/22 08:59 Last Admin: 05/26/22 07:25 Dose: 1 mg Furosemide (Furosemide 40 Mg Tab) 40 mg PO BID [facility] Stop: 06/18/22 08:59 Last Admin: 05/26/22 07:24 Dose: 40 mg Gabapentin (Gabapentin 100 Mg Cap) 100 mg PO HS [facility] Stop: 06/18/22 20:59 Last Admin: 05/25/22 20:45 Dose: 100 mg Gabapentin (Gabapentin 600 Mg Tab) 600 mg PO HS [facility] Stop: 06/18/22 20:59 Last Admin: 05/25/22 20:45 Dose: 600 mg Heparin Sodium (Porcine) (Heparin Sod 5,000 Unit/0.5 Ml Vial) 5,000 units SQ Q12 [facility] Stop: 06/19/22 20:59 Last Admin: 05/26/22 07:27 Dose: Not Given Ceftriaxone Sodium 2,000 mg/ (Dextrose) 70 mls @ 100 mls/hr IV Q24H [facility]; Protocol Stop: 05/29/22 09:59 Last Infusion: 05/26/22 10:22 Dose: Infused Lactobacillus Acidophilus (Advanced Probiotic 1250 Mg Capsule) 2 cap PO DAILY [facility] Stop: 06/18/22 08:59 Last Admin: 05/26/22 07:25 Dose: 2 cap Lactulose (Lactulose Syrup 20 Gm/30 Ml Udc) 20 gm PO TID [facility] Stop: 06/19/22 17:29 Last Admin: 05/26/22 14:52 Dose: Not Given Lidocaine (Lidocaine 5% 1 Patch) 1 patch TD QAM PRN PRN Reason: Pain Stop: 06/18/22 01:48 Last Admin: 05/22/22 21:44 Dose: 1 patch Magnesium Oxide (Magnesium Oxide 400 Mg Tab) 400 mg PO QAM [facility] Stop: 06/18/22 08:59 Last Admin: 05/26/22 07:25 Dose: 400 mg Midodrine (Midodrine Hcl 2.5 Mg Tab) 5 mg PO TIDM [facility] Stop: 06/18/22 08:59 Last Admin: 05/26/22 12:25 Dose: 5 mg Miscellaneous (Remove Lidoderm Patch) 1 each N/A DAILY@2100 [facility] Stop: 06/18/22 20:59 Last Admin: 05/25/22 20:46 Dose: Not Given Morphine Sulfate (Morphine Sulfate 4 Mg/Ml 1 Ml Carp\Vial) 3 mg IV Q4H PRN PRN Reason: Severe Pain (Scale 7, 8, 9,10) Stop: 06/02/22 01:48 Last Admin: 05/26/22 12:53 Dose: 3 mg Multivitamins (Multivitamin Tab) 1 tab PO QAM [facility] Stop: 06/18/22 08:59 Last Admin: 05/26/22 07:25 Dose: 1 tab Ondansetron HCl (Ondansetron 4 Mg Od Tab) 4 mg PO Q6H PRN PRN Reason: Nausea Stop: 06/19/22 17:20 Last Admin: 05/26/22 07:38 Dose: 4 mg Oxycodone HCl (Oxycodone Hcl Ir 5 Mg Tab (Immediate Release)) 5 mg PO Q4H PRN PRN Reason: Moderate Pain (Scale 4, 5, 6) Stop: 06/02/22 01:48 Last Admin: 05/26/22 15:30 Dose: 5 mg Pantoprazole Sodium (Pantoprazole 40 Mg Tab) 40 mg PO BID [facility] Stop: 06/18/22 08:59 Last Admin: 05/26/22 07:27 Dose: 40 mg Potassium Chloride (Potassium Chloride Crtab 20 Meq Tabcr) 20 meq PO BID17 [facility] Stop: 06/18/22 08:59 Last Admin: 05/26/22 07:26 Dose: 20 meq Rifaximin (Rifaximin 550 Mg Tablet) 550 mg PO BID [facility] Stop: 06/18/22 08:59 Last Admin: 05/26/22 07:25 Dose: 550 mg Spironolactone (Spironolactone 100 Mg Tab) 100 mg PO DAILY [facility] Stop: 06/18/22 08:59 Last Admin: 05/26/22 07:25 Dose: 100 mg Thiamine HCl (Thiamine Hcl 100 Mg Tab) 100 mg PO QAM [facility] Stop: 06/18/22 08:59 Last Admin: 05/26/22 07:25 Dose: 100 mg (1) Abdominal pain Abdominal location: generalized Qualified Code(s): R10.84 - Generalized abdominal pain (2) Abdominal ascites Ascites type: due to alcoholic cirrhosis Qualified Code(s): K70.31 - Alcoholic cirrhosis of liver with ascites (3) Cirrhosis Hepatic cirrhosis type: alcoholic cirrhosis Ascites presence: with ascites Qualified Code(s): K70.31 - Alcoholic cirrhosis of liver with ascites (4) Alcoholism with alcohol dependence Complication of substance-induced condition: uncomplicated Substance use status: in withdrawal Qualified Code(s): F10.230 - Alcohol dependence with withdrawal, uncomplicated
[2022-05-26] MEDS: GABAPENTIN 100 MG CAP PO SCH (20:48)
[2022-05-26] MEDS: GABAPENTIN 600 MG TAB PO SCH (20:48)
[2022-05-27] MEDS: MoRPHine SULFATE 4 MG/ML 1 ML CARP\\VIAL IV PRN ×5 (01:32→19:12)
[2022-05-27] MEDS: oxyCODONE HCL IR 5 MG TAB (IMMEDIATE RELEASE) PO PRN ×3 (07:31→16:01)
[2022-05-27] MEDS: FUROSEMIDE 40 MG TAB PO SCH (08:38)
[2022-05-27] MEDS: rifAXIMin 550 MG TABLET PO SCH (08:38)
[2022-05-27] MEDS: COLESTIPOL HCL 1 GM TAB PO SCH (08:38)
[2022-05-27] MEDS: PANTOprazole 40 MG TAB PO SCH (08:39)
[2022-05-27] MEDS: FOLIC ACID 1 MG TAB PO SCH (08:39)
[2022-05-27] MEDS: SPIRONOLACTONE 100 MG TAB PO SCH (08:39)
[2022-05-27] MEDS: MIDODRINE HCL 2.5 MG TAB PO SCH ×3 (08:39→18:19)
[2022-05-27] MEDS: MAGNESIUM OXIDE 400 MG TAB PO SCH (08:39)
[2022-05-27] MEDS: MULTIVITAMIN TAB PO SCH (08:39)
[2022-05-27] MEDS: PANCREAZE (LIPASE 10,500U) CAP PO SCH ×3 (08:39→18:18)
[2022-05-27] MEDS: LACTULOSE SYRUP 20 GM/30 ML UDC PO SCH ×2 (08:40→13:22)
[2022-05-27] MEDS: ADVANCED PROBIOTIC 1250 MG CAPSULE PO SCH (08:40)
[2022-05-27] MEDS: HEPARIN SOD 5,000 UNIT/0.5 ML VIAL SQ SCH (08:40)
[2022-05-27] MEDS: POTASSIUM CHLORIDE CRTAB 20 MEQ TABCR PO SCH ×2 (08:40→18:19)
[2022-05-27] MEDS: THIAMINE HCL 100 MG TAB PO SCH (08:40)
[2022-05-27] MEDS: CITALOPRAM 20 MG TAB PO SCH (08:41)
[2022-05-27] MEDS: ONDANSETRON 4 MG OD TAB PO PRN ×2 (08:48→14:48)
[2022-05-27] MEDS: cefTRIAXone SODIUM 2,000 MG in DEXTROSE 5% 50 ML IV SCH (10:59)
--- NOTE | 2022-05-27 13:48 | Hospitalist Progress Note ---
Date of Service May 27, 2022 Assessment & Plan (1) Abdominal pain: Plan: Ascites on the background of ESLD 57-year-old F with hx of cirrhosis and recurrent ascites status post outpatient paracentesis came to the hospital with complaint of abdominal distention ass ociated with some pain. Patient is a status post paracentesis 5.3 L on 05/19, patient reports improvement in her comfort level and her pain. Ascites fluid with WBC of 145, follow-up on culture. Peritoneal cultx - so far negative. Feels that her abdomen is more distended again and filling up w/ fluid. Pain is persisting-advised not to use more of narcotics pain medication Still complains to have some abdominal pain and distention Nausea but no vomiting Wanted to have paracentesis before she goes home tomorrow Ultrasound did not show much fluid to be drained Currently advised to move around and walk around the hallway Abdominal pain is reasonably controlled without any distention and/or nausea/vomiting We will continue her pain medications at home Acute UTI: Patient started on Rocephin 06/18, urine cultx shows mixed carla. repeat UA negative. Electrolyte abnormalities: Monitor replete. Antibiotic course is done DVT prophylaxis: Heparin subcu (2) Abdominal ascites: Plan: Requires recurrent paracentesis Abdomen is minimally distended but soft Mild fluid in the abdomen Likely to be discharged tomorrow with outpatient paracentesis Discussed with GI who will arrange for outpatient periodic paracentesis every month We will try to get paracentesis tomorrow before she goes home She is being scheduled to have paracentesis every month as an outpatient Clinically no ascites-will be discharged home this afternoon (3) Cirrhosis: Plan: With history of esophageal varices and GI bleed No acute issues at this time except ascites Continue rifaximin/lactulose/Aldactone/Lasix other medications as able. Strongly advised to continue all of her medications as before (4) Alcoholism with alcohol dependence: Plan: No signs and symptoms of withdrawal Strongly advised not to drink alcohol Admission and Anticipated Discharge Date Admission Date: May 21, 2022 Subjective 05/24/2022 The patient was seen and examined in medical floor She complains to abdominal pain with minimal distention Has been ambulating in the room without any difficulties She will be discharged home tomorrow 05/25/2022 The patient was seen and examined in medical floor She has been complaining of abdominal distention with pain and nausea Denies any shortness of breath associated with it Discussed with the GI who will schedule for outpatient periodic paracentesis We will try to do paracentesis tomorrow 05/26/2022 The patient was seen and examined in medical floor She complains to abdominal pain with nausea without any distention Ultrasound of the abdomen did not show much fluid to be drained She will be discharged home tomorrow 05/27/2022 The patient was seen and examined in medical floor She does not have any significant symptoms except ongoing discomfort in the abdomen No distention and no nausea and or vomiting She has been ambulating without any problem Review of Systems Review of Systems: All systems reviewed and are unremarkable except as noted below Physical Exam Physical Exam: Lying in bed comfortably Constitutional: average body habitus; not ill appearing Eyes: PERRL, conjunctivae normal, anicteric sclerae ENMT: external ear and nose normal, oropharynx normal Neck: trachea midline, no thyromegaly Respiratory: no respiratory distress Auscultation: lungs clear to auscultation bilaterally Cardiovascular: Rate/Rhythm: regular rate and regular rhythm; not tachycardic Heart Sounds: normal S1 and normal S2; no murmur Extremities: no edema Gastrointestinal (Abdomen): Inspection/Auscultation: normal bowel sounds; abdomen not distended (Minimally distended) Percussion/Palpation: + abdomen tender and abdomen soft Musculoskeletal: No acute arthritis involving any joint Neurologic: normal touch/pain/proprioception and + meningeal signs Psychiatric: A+Ox3, euthymic affect Lymphatic: no cervical or axillary lymphadenopathy Results & Data Results & Data Vital Signs (Past 12 Hours) Vital Signs Temp Pulse Resp BP Pulse Ox O2 Del Method 05/27/22 11:00 36.8 C 60 18 100/55 L 96 Room Air 05/27/22 08:15 36.6 C 72 18 91/50 L 97 Room Air Medications Administered Current Inpatient Medications Lipase/Protease/Amylase (Pancreaze (Lipase 10,500u) Cap) 3 cap PO TIDM [facility] Stop: 06/18/22 07:59 Last Admin: 05/27/22 11:02 Dose: 3 cap Citalopram Hydrobromide (Citalopram 20 Mg Tab) 20 mg PO QAM [facility] Stop: 06/18/22 08:59 Last Admin: 05/27/22 08:41 Dose: 20 mg Colestipol HCl (Colestipol Hcl 1 Gm Tab) 2 gm PO BID [facility] Stop: 06/18/22 08:59 Last Admin: 05/27/22 08:38 Dose: 2 gm Folic Acid (Folic Acid 1 Mg Tab) 1 mg PO QAM [facility] Stop: 06/18/22 08:59 Last Admin: 05/27/22 08:39 Dose: 1 mg Furosemide (Furosemide 40 Mg Tab) 40 mg PO BID MICHELLE Stop: 06/18/22 08:59 Last Admin: 05/27/22 08:38 Dose: 40 mg Gabapentin (Gabapentin 100 Mg Cap) 100 mg PO HS [facility]HEL[facility] Stop: 06/18/22 20:59 Last Admin: 05/26/22 20:48 Dose: 100 mg Gabapentin (Gabapentin 600 Mg Tab) 600 mg PO HS [facility] Stop: 06/18/22 20:59 Last Admin: 05/26/22 20:48 Dose: 600 mg Heparin Sodium (Porcine) (Heparin Sod 5,000 Unit/0.5 Ml Vial) 5,000 units SQ Q12 [facility] Stop: 06/19/22 20:59 Last Admin: 05/27/22 08:40 Dose: Not Given Ceftriaxone Sodium 2,000 mg/ (Dextrose) 70 mls @ 100 mls/hr IV Q24H [facility]; Protocol Stop: 05/29/22 09:59 Last Infusion: 05/27/22 11:45 Dose: Infused Lactobacillus Acidophilus (Advanced Probiotic 1250 Mg Capsule) 2 cap PO DAILY MICHELLE Stop: 06/18/22 08:59 Last Admin: 05/27/22 08:40 Dose: 2 cap Lactulose (Lactulose Syrup 20 Gm/30 Ml Udc) 20 gm PO TID MICHELLE Stop: 06/19/22 17:29 Last Admin: 05/27/22 13:22 Dose: Not Given Lidocaine (Lidocaine 5% 1 Patch) 1 patch TD QAM PRN PRN Reason: Pain Stop: 06/18/22 01:48 Last Admin: 05/22/22 21:44 Dose: 1 patch Magnesium Oxide (Magnesium Oxide 400 Mg Tab) 400 mg PO QAM [facility] Stop: 06/18/22 08:59 Last Admin: 05/27/22 08:39 Dose: 400 mg Midodrine (Midodrine Hcl 2.5 Mg Tab) 5 mg PO TIDM [facility] Stop: 06/18/22 08:59 Last Admin: 05/27/22 11:02 Dose: 5 mg Miscellaneous (Remove Lidoderm Patch) 1 each N/A DAILY@2100 [facility] Stop: 06/18/22 20:59 Last Admin: 05/26/22 20:49 Dose: Not Given Morphine Sulfate (Morphine Sulfate 4 Mg/Ml 1 Ml Carp\Vial) 3 mg IV Q4H PRN PRN Reason: Severe Pain (Scale 7, 8, 9,10) Stop: 06/02/22 01:48 Last Admin: 05/27/22 09:35 Dose: 3 mg Multivitamins (Multivitamin Tab) 1 tab PO QAM [facility] Stop: 06/18/22 08:59 Last Admin: 05/27/22 08:39 Dose: 1 tab Ondansetron HCl (Ondansetron 4 Mg Od Tab) 4 mg PO Q6H PRN PRN Reason: Nausea Stop: 06/19/22 17:20 Last Admin: 05/27/22 08:48 Dose: 4 mg Oxycodone HCl (Oxycodone Hcl Ir 5 Mg Tab (Immediate Release)) 5 mg PO Q4H PRN PRN Reason: Moderate Pain (Scale 4, 5, 6) Stop: 06/02/22 01:48 Last Admin: 05/27/22 11:44 Dose: 5 mg Pantoprazole Sodium (Pantoprazole 40 Mg Tab) 40 mg PO BID [facility] Stop: 06/18/22 08:59 Last Admin: 05/27/22 08:39 Dose: 40 mg Potassium Chloride (Potassium Chloride Crtab 20 Meq Tabcr) 20 meq PO BID17 [facility] Stop: 06/18/22 08:59 Last Admin: 05/27/22 08:40 Dose: 20 meq Rifaximin (Rifaximin 550 Mg Tablet) 550 mg PO BID [facility] Stop: 06/18/22 08:59 Last Admin: 05/27/22 08:38 Dose: 550 mg Spironolactone (Spironolactone 100 Mg Tab) 100 mg PO DAILY [facility] Stop: 06/18/22 08:59 Last Admin: 05/27/22 08:39 Dose: 100 mg Thiamine HCl (Thiamine Hcl 100 Mg Tab) 100 mg PO QAM [facility] Stop: 06/18/22 08:59 Last Admin: 05/27/22 08:40 Dose: 100 mg (1) Abdominal pain Abdominal location: generalized Qualified Code(s): R10.84 - Generalized abdominal pain (2) Abdominal ascites Ascites type: due to alcoholic cirrhosis Qualified Code(s): K70.31 - Alcoholic cirrhosis of liver with ascites (3) Cirrhosis Hepatic cirrhosis type: alcoholic cirrhosis Ascites presence: with ascites Qualified Code(s): K70.31 - Alcoholic cirrhosis of liver with ascites (4) Alcoholism with alcohol dependence Complication of substance-induced condition: uncomplicated Substance use status: in withdrawal Qualified Code(s): F10.230 - Alcohol dependence with withdrawal, uncomplicated
--- NOTE | 2022-05-28 08:02 | Discharge Summary ---
Date of Service May 27, 2022 Admission HPI Per Admitting Provider DATE OF ADMISSION: 05/19/2022. CHIEF COMPLAINT: Large volume ascites, abdominal pain. HISTORY OF PRESENT ILLNESS: This is a 57-year-old female with past medical history significant for end-stage liver disease, esophageal varices, portal hypertension, hypothyroidism, peripheral neuropathy, history of convulsions, depression, anxiety, restless legs syndrome, history of narcotic abuse, presents with increasing ascites and abdominal pain. The patient was scheduled for paracentesis 05/23/2022, but she thinks she cannot wait, that is the reason she came here. The abdomen is pushing her chest, causing her chest discomfort and also some shortness of breath. Denies any nausea or vomiting. No fevers, no cough, no headache, no blurred visions, no runny nose. She always has some diarrhea. Normal bladder movements. Currently, resting comfortably and hemodynamically stable. Currently living with her daughter and she ambulates with a walker. The patient's last admission, she was here in the first week of April. As per discharge summary, she was supposed to follow up with [facility] for access stent placement for treatment of pyloric stenosis, but the patient says she does not know anything about it and currently, denies any nausea or vomiting and eating regular food.. ALLERGIES: DIPHENHYDRAMINE, ASPIRIN, BUPROPION, CLARITHROMYCIN, SALICYLATES, OXAPROZIN. PAST MEDICAL HISTORY: As mentioned above. PAST SURGICAL HISTORY: History of cholecystectomy, colonoscopy, EGD, history of open reduction and internal fixation of left arm, left leg hardware in place, history of Jeffy-en-Y gastric bypass, history of tooth extraction, all tooth removed, history of total hysterectomy with bilateral salpingo-oophorectomy, history of laparoscopy for endometriosis, history of resection of small bowel d ue to endometriosis. FAMILY HISTORY: Significant for father had cancer. Mother had stroke. SOCIAL HISTORY: Smokes 10 cigarettes daily, history of heavy drinking alcohol. Currently says since the end of January, she does not drink any alcohol, no drug abuse. MEDICATIONS: The patient seems to be on citalopram 20 mg p.o. daily, colestipol 2 g p.o. b.i.d., Creon 3 capsules p.o. t.i.d. with meals, folic acid 1 mg p.o. a.m., Lasix 40 mg p.o. b.i.d., gabapentin 600 mg p.o. at bedtime, gabapentin 100 mg p.o. at bedtime, probiotic 1 tablet daily, lidocaine patch transdermal a.m. p.r.n., magnesium oxide 400 mg p.o. daily, midodrine 5 mg p.o. t.i.d., multivitamin 1 tablet p.o. daily, omeprazole 20 mg p.o. b.i.d. p.r.n., Zofran 4 mg p.o. b.i.d. p.r.n., oxycodone 5 mg p.o. q. 4 hours p.r.n., Protonix 40 mg p.o. b.i.d., potassium chloride 20 mEq p.o. b.i.d., spironolactone 100 mg p.o. daily, thiamine 100 mg p.o. daily. REVIEW OF SYSTEMS: As per HPI. Rest of the review of systems is negative. Admission Exam Per Admitting Provider GENERAL: The patient is of moderate build, not in acute distress. VITAL SIGNS: Temperature 36.3, pulse 80, respiratory rate 20, blood pressure 108/72, oxygen 95% on room air. HEENT: Pupils equal, round and reactive to light. Oral mucosa moist. NECK: No JVD, no neck masses. CARDIOVASCULAR: S1 and S2 heard. Regular rate and rhythm. No murmur, no gallop. RESPIRATORY SYSTEM: Normal AP diameter. No accessory muscle use. No wheezing or crackles. ABDOMEN: Distended. Diffuse tenderness. No guarding. No rigidity. CENTRAL NERVOUS SYSTEM: Cranial nerves II through XII grossly intact, nonfocal. EXTREMITIES: No edema, no erythema. Principal Diagnosis Abdominal ascites History of cirrhosis UTI Discharge Exam Lying in bed comfortably Constitutional average body habitus; not ill appearing Eyes PERRL, conjunctivae normal, anicteric sclerae ENMT external ear and nose normal, oropharynx normal Neck trachea midline, no thyromegaly Respiratory no respiratory distress Auscultation: lungs clear to auscultation bilaterally Cardiovascular Rate/Rhythm: regular rate and regular rhythm; not tachycardic Heart Sounds: normal S1 and normal S2; no murmur Extremities: no edema Gastrointestinal (Abdomen) Inspection/Auscultation: normal bowel sounds; abdomen not distended (Minimally distended) Percussion/Palpation: + abdomen tender and abdomen soft Neurologic normal touch/pain/proprioception and + meningeal signs Psychiatric A+Ox3, euthymic affect Lymphatic no cervical or axillary lymphadenopathy Discharge Data Allergies Allergy/AdvReac Type Severity Reaction Status Date / Time diphenhydramine Allergy Severe seizures/it Verified 05/18/22 22:00 mya/tremo rs aspirin Allergy Intermediate hives/ringing Verified 05/18/22 22:00 of ears bupropion Allergy Intermediate Palpitation Verified 05/18/22 22:00 s clarithromycin Allergy Intermediate HIVES Verified 05/18/22 22:00 salicylates Allergy Intermediate ringing in Verified 05/18/22 22:00 ears/hives oxaprozin AdvReac Intermediate nausea/vomi Verified 05/18/22 22:00 ting Consultations 05/18/22 21:32 ED Decision to Admit Stat 05/19/22 01:49 Consult Gastroenterology Routine Ordered Studies 05/18/22 20:18 CT Abd and Pelvis [CT abd pelvis IV con only] Stat 05/19/22 08:52 IR paracentesis abd w/img US Routine 05/26/22 09:51 US abdomen ltd ascites Routine Hospital Course (1) Abdominal pain: (2) Abdominal ascites: 4/7 Afebrile Cultures negative so far Continue as needed analgesics Continue other usual medication regimen (3) Cirrhosis: Appears to be compensated overall this morning (4) Alcoholism with alcohol dependence: No signs of active interval Total Time Total Time Spent Total Time Spent (In Minutes): 35 minutes Discharge Plan Discharge Items Patient Disposition: Home - Self-Care Reason For Visit: ABDOMINAL PAIN Discharge Diagnosis: Abdominal ascites History of cirrhosis UTI Condition on Discharge: Good Activity: Resume your previous activity Non-emergency contact: Primary Care Provider Call non-emergency contact if: you have any medication questions and your temperature is above 101 Follow-up/Referrals: Filiberto Moya [Primary Care Provider] - 05/27/22 10:15 am Diet: Heart Healthy and Low Sodium (2gm) Addtl Attending Provider Instructions: Follow-up with the primary care physician within return likely you will need labs CBC/CMP/magnesium/phosphorus. Follow-up with peritoneal and urine culture final results obtained this admission with the PCP office when you visit PCP in a week time. Follow-up with GI doctor as prior. Follow-up with your outpatient palliative care and also coordinate for arranging scheduled paracentesis more frequently. Recommend staying away from alcohol/tobacco. Continue to take your medications as prescribed. Pending Studies at Discharge: No Stand-Alone Forms: [facility], Smoking Cessation Medications and DC Order Prescriptions: New Xifaxan 550 mg Tablet 550 mg PO BID Qty: 60 0RF lactulose 20 gram/30 mL Solution 20 g PO TID Qty: 1 0RF Continued gabapentin 100 mg capsule 100 mg PO HS Rx Instructions: NOT ON [facility] MED LIST, ON EXT MED HX 04/10/22 FOR 30 DAYS. take along with 600mg = 700mg magnesium oxide 400 mg (241.3 mg magnesium) Tablet 400 mg PO QAM Qty: 30 0RF Rx Instructions: NOT ON [facility] MED LIST, ON EXT MED HX 05/12/22 thiamine HCl (vitamin B1) 100 mg Tablet 100 mg PO QAM Qty: 30 0RF folic acid 1 mg Tablet 1 mg PO QAM Qty: 30 0RF furosemide 40 mg tablet 40 mg PO BID Qty: 60 0RF Rx Instructions: NOT ON [facility] MED LIST, ON EXT MED HX 05/12/22 gabapentin 600 mg tablet 600 mg PO HS Qty: 30 0RF Rx Instructions: NOT ON [facility] MED LIST, ON EXT MED HX 05/12/22take along with 100mg spironolactone 100 mg tablet 100 mg PO DAILY Qty: 30 0RF Rx Instructions: NOT ON [facility] MED LIST, ON EXT MED HX 05/12/22 midodrine 5 mg tablet 5 mg PO TID Qty: 90 0RF Rx Instructions: do not give last dose of day after 6PM or within 4 hrs of bedtime citalopram 20 mg tablet 20 mg PO QAM Qty: 30 0RF Rx Instructions: LAST FILLED 04/10/22 FOR 30 DAYS. lidocaine 5 % adhesive patch,medicated 1 patch transdermal QAM PRN (Reason: Pain) Qty: 15 0RF colestipol 1 gram Tablet 2 g PO BID 30 Days Qty: 120 0RF ondansetron 4 mg tablet,disintegrating 4 mg PO BID PRN (Reason: nausea and vomiting) Qty: 14 0RF Rx Instructions: NOT ON [facility] MED LIST, ON EXT MED HX 05/12/22 pantoprazole 40 mg Tablet,Delayed Release (Dr/Ec) 40 mg PO BID Qty: 60 0RF Rx Instructions: NOT ON [facility] MED LIST, ON EXT MED HX 05/12/22 potassium chloride 20 mEq tablet extended release 20 meq PO BID Qty: 14 0RF Rx Instructions: NOT ON [facility] MED LIST, ON EXT MED HX 05/12/22 multivitamin Tablet 1 tab PO DAILY omeprazole 20 mg capsule,delayed release(DR/EC) 20 mg PO BID PRN (Reason: Heartburn) oxycodone 5 mg tablet 5 mg PO Q4H PRN (Reason: Pain, Severe) Rx Instructions: NOT ON [facility] MED LIST, ON EXT MED HX 05/12/22 oxycodone 10 mg tablet 10 mg PO Q4H PRN (Reason: Pain, Severe) Rx Instructions: ORDERED 05/14/22 Probiotic Acidophilus 1.5 mg (250 million cell) Capsule 100 mg PO DAILY Creon 36,000-114,000- 180,000 unit capsule,delayed release(DR/EC) 3 cap PO TIDM Discharge Orders: Discharge Order (Routine); Ordered 05/27/22 Ordered By: Max Nieves/Other Patient Handouts: Cirrhosis of Liver Dc, ED Ascites Admission Data Admit Date/Time: 05/21/22 14:10 Attending Provider: Max Morse Admit Provider: Taiwo Aguilera Primary Care Provider: Filiberto Moya Other Providers: Taiwo Aguilera ; Mio Rojas ; Artemio Aranda ; Allie Stovall ; Radha Castellon ; Telma Stevens ; Margie Savage ; Jh Guerrero ; Noble Vidal ; Pierre Vargas ; Aure Choi ; Kevin Coy ; Nicole Calvert ; Essence Kraus ; Meredith Diaz ; Ca Allen ; Nia Correa ; Sebastian Shah ; Owen Duran ; Jennifer Kaiser ; Chris Palencia Jr ; Salud Dinh ; Anthony Mayer Other Interventions: Discharge Summary Assessment (RN) Last Done: 05/27/22 14:36
== END 2022-05-27 21:17 | disposition home or self-care (01) ==
LOC: ED 15:53 → 3W 15:53 → SUATTDRO 05-19 00:44 → 3W 05-19 01:09 → SUATTDRO 05-21 14:10

== ENCOUNTER 2022-10-08 17:49 | Inpatient (IN) ==
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
--- NOTE | 2022-10-08 18:49 | XRay Report ---
XR chest 1V portable CLINICAL HISTORY: Chest pain, nonspecific TECHNIQUE: Single frontal radiograph of the chest was obtained. Comparison: Comparison is made to chest radiographs 04/07/2022 FINDINGS: No lines and tubes are seen. The cardiomediastinal silhouette is normal. Lungs are underinflated but clear. No evidence of pleural effusion or pneumothorax. IMPRESSION: Low lung volumes without acute abnormality. ACT 112: Negative or not required by law. Electronically signed by: Roger Flores M.D. 10/08/2022 6:47 PM
[2022-10-08 19:28] LABS: Albumin Globulin Ratio 0.9 (0.9-2); Albumin Level 3.4 gm/dl (3.4-5.0); Bilirubin Direct 0.3 mg/dl (0-0.2); Bilirubin,Total 1.2 mg/dl (0.2-1.0); Calcium 8.7 mg/dl (8.6-10.3); Creatinine Clr Calc Pharmacy 118.2 ml/min; Est GFR (African American) 130.9 ml/min; Globulin 3.6 gm/dl (2.5-4.0); Potassium 3.4 mmol/L (3.5-5.1)
[2022-10-08 19:34] LABS: Anisocytosis Present; Basophils # (auto) 0.01 K/uL (0.00-0.20); Basophils % (auto) 0.5 %; Eosinophils # (auto) 0.01 K/uL (0.00-0.50); Eosinophils % (auto) 0.5 %; Hematocrit (blood only) 26.5 % (37.0-47.0); Hemoglobin 8.3 g/dl (12.0-16.0); Lymphocytes # (auto) 0.32 K/uL (1.20-3.40); Lymphocytes % (auto) 16.5 %; Mean Corpuscular Hemoglobin 21.5 pg (25.0-34.0); Mean Corpuscular Hgb Conc 31.3 g/dL (32.0-36.0); Mean Corpuscular Volume 68.7 fL (80.0-100.0); Microcytosis Present; Monocytes # (auto) 0.21 K/uL (0.11-0.59); Monocytes % (auto) 10.8 %; Neutrophils # (auto) 1.39 K/uL (1.40-6.50); Neutrophils % (auto) 71.7 %; Platelet Count 93 K/uL (130-400); RDW Coefficient of Variation 21.2 % (11.5-14.5); RDW Standard Deviation 52.2 fL (36.4-46.3); Red Blood Count 3.86 M/uL (4.20-5.40); Troponin I High Sensitivity 3.3 pg/ml (0-14); White Blood Count 1.94 K/ul (4.8-10.8)
[2022-10-08 19:43] LABS: INR 1.2 (0.9-1.1); Prothrombin Time 12.6 Seconds (9.0-12.0)
[2022-10-08] MEDS ORDERED: MoRPHine SULFATE 2 MG/ML CARP IV STA (19:50)
[2022-10-08] MEDS ORDERED: SODIUM CHLORIDE 0.9% 1,000 ML IV SCH (20:00)
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
[2022-10-08] MEDS ORDERED: MoRPHine SULFATE 10 MG/0.5 ML UDP PO PRN (20:41)
[2022-10-08] MEDS ORDERED: HYOSCYAMINE SULFATE 0.125 MG TAB SL PRN (20:55)
[2022-10-08] MEDS ORDERED: LORazepam 2 MG/1 ML VIAL IV PRN (20:55)
[2022-10-08] MEDS ORDERED: ATROPINE SULFATE 1% OP SOLN 5 ML BTL SL PRN (20:55)
[2022-10-08] MEDS ORDERED: GLYCOPYRROLATE 0.2 MG/ML VIAL IV PRN (20:55)
[2022-10-08] MEDS ORDERED: FUROSEMIDE 40 MG/4 ML VIAL IV STA (21:37)
[2022-10-08] MEDS: LORazepam 0.5 MG TAB PO PRN (23:01)
[2022-10-08 23:25] LABS: Appearance Urine Clear (Clear); Bacteria Urine Automated Negative (Negative); Bilirubin Urine Negative (Negative); Blood Urine Negative (Negative); Color Urine Dark Yellow; Epithelial Cell Urine Auto >30 /lpf (0-5); Glucose Urine UA Negative (Negative); Ketones Urine Negative (Negative); Leukocyte Esterase Urine Trace (Negative); Nitrite Urine Negative (Negative); Protein Urine Negative (Negative); RBC Urine Automated 0-4 /hpf (0-4); Specific Gravity Urine 1.014 (1.000-1.030); Urobilinogen Urine Negative (Negative); pH Urine 7.5 (4.5-7.5)
[2022-10-08 23:58] LABS: Amphetamines+Metham, Urine Neg (Neg); Barbiturates, Urine Neg (Neg); Benzodiazepine, Urine Neg (Neg); Cocaine, Urine Neg (Neg); MDMA (Ecstacy), Urine Neg (Neg); Methadone, Urine Neg (Neg); Opiate, Urine Pos (Neg); Phencyclidine, Urine Neg (Neg)
[2022-10-09] MEDS ORDERED: LIDOCAINE 5% 1 PATCH TD PRN (00:14)
[2022-10-09] MEDS: FUROSEMIDE 40 MG TAB PO SCH ×2 (00:35→10:50)
[2022-10-09] MEDS: rifAXIMin 550 MG TABLET PO SCH ×3 (01:04→21:32)
[2022-10-09] MEDS: MoRPHine SULFATE 10 MG/0.5 ML UDP PO PRN ×8 (01:04→22:26)
[2022-10-09] MEDS: PANTOprazole 40 MG TAB PO SCH ×3 (01:05→21:32)
[2022-10-09] MEDS: LORazepam 0.5 MG TAB PO PRN ×5 (03:26→22:25)
[2022-10-09] MEDS: ONDANSETRON 4 MG OD TAB PO PRN (04:43)
--- NOTE | 2022-10-09 07:10 | Electrocardiogram Report ---
Test Reason : Blood Pressure : / mmHG Vent. Rate : 071 BPM Atrial Rate : 071 BPM P-R Int : 180 ms QRS Dur : 096 ms QT Int : 436 ms P-R-T Axes : 009 -09 015 degrees QTc Int : 473 ms Normal sinus rhythm Low voltage QRS Abnormal ECG When compared with ECG of 18-MAY-2022 17:12, Nonspecific T wave abnormality now evident in Anterior leads Confirmed by Jose Alberto Blakely ([id number]) on 10/09/2022 7:10:10 AM Referred By: REFERRED SELF Confirmed By:Sunil Blakely
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
[2022-10-09] MEDS: CITALOPRAM 20 MG TAB PO SCH (08:02)
[2022-10-09] MEDS: PANCREAZE (LIPASE 10,500U) CAP PO SCH ×3 (08:03→16:12)
[2022-10-09] MEDS: SPIRONOLACTONE 100 MG TAB PO SCH (08:04)
[2022-10-09] MEDS ORDERED: POTASSIUM CHLORIDE PWD 20 MEQ PACK PO SCH (09:00)
--- NOTE | 2022-10-09 10:22 | Ultrasound Report ---
US abdomen ltd ascites CLINICAL HISTORY: monitor ascites COMPARISON STUDY: CT of the abdomen and pelvis May 18, 2022. Ascites ultrasound May 26, 2022. TECHNIQUE: Sonography of the abdomen and pelvis was performed to assess for ascites. FINDINGS: Mild to moderate amount of ascites within the abdomen and pelvis was noted. IMPRESSION: [id number] amount of ascites within the abdomen and pelvis. ACT 112: Negative or not required by law. Electronically signed by: Benedict Vaughn M.D. 10/09/2022 10:20 AM
[2022-10-09] MEDS ORDERED: Nursing to Pharmacy Communication SCH (10:30)
[2022-10-09] MEDS ORDERED: POTASSIUM CHLORIDE CRTAB 20 MEQ TABCR PO SCH (10:30)
[2022-10-09] MEDS: POTASSIUM CHLORIDE CRTAB 20 MEQ TABCR PO SCH (10:51)
[2022-10-09] MEDS ORDERED: ZOLPIDEM TARTRATE 5 MG TAB PO PRN (12:38)
--- NOTE | 2022-10-09 12:44 | Ultrasound Report ---
IR paracentesis abd w/img US CLINICAL HISTORY: ascites, hospice, therapeutic COMPARISON STUDY: Ultrasound guided paracentesis May 19, 2022. PROCEDURE: The procedure, risks and benefits were discussed with the patient and informed written con sent was obtained. The procedure was performed by Dr. Vaughn following a timeout. Suitable pocket for paracentesis within the left lower quadrant was noted. Skin was prepped and draped in sterile fas hion and local anesthesia was achieved with 1% lidocaine. 5 Romansh catheter was then placed into the peritoneal cavity with immediate return of ascites. A total of 4.4 L of ascites was withdrawn. Patien t tolerated the procedure well and no immediate complications were evident. IMPRESSION: Successful ultrasound guided therapeutic paracentesis with drainage of 4.4 L of serous a scites. ACT 112: Negative or not required by law. Electronically signed by: Benedict Vaughn M.D. 10/09/2022 12:43 PM
[2022-10-09] MEDS: LACTULOSE SYRUP 30 GM/45 ML UDP PO SCH ×2 (13:01→21:03)
[2022-10-10 07:44] LABS: Hematocrit (blood only) 24.3 % (37.0-47.0); Hemoglobin 7.5 g/dl (12.0-16.0); Mean Corpuscular Hemoglobin 21.7 pg (25.0-34.0); Mean Corpuscular Hgb Conc 30.9 g/dL (32.0-36.0); Mean Corpuscular Volume 70.2 fL (80.0-100.0); Platelet Count 74 K/uL (130-400); RDW Coefficient of Variation 20.7 % (11.5-14.5); RDW Standard Deviation 52.1 fL (36.4-46.3); Red Blood Count 3.46 M/uL (4.20-5.40); White Blood Count 1.02 K/ul (4.8-10.8)
[2022-10-10 07:47] LABS: INR 1.2 (0.9-1.1); Prothrombin Time 13.4 Seconds (9.0-12.0)
[2022-10-10 08:05] LABS: Albumin Level 2.9 gm/dl (3.4-5.0); BUN Creatinine Ratio 17.4 (10-20); Bilirubin,Total 1.2 mg/dl (0.2-1.0); Calcium 8.3 mg/dl (8.6-10.3); Est GFR (African American) 127.1 ml/min; Est GFR (Non-African American) 109.7 ml/min; Globulin 2.9 gm/dl (2.5-4.0); Magnesium 1.7 mg/dl (1.7-2.4); Potassium 3.7 mmol/L (3.5-5.1); Total Protein 5.8 gm/dl (6.0-8.3)
[2022-10-10] MEDS: LORazepam 0.5 MG TAB PO PRN ×3 (08:14→17:20)
[2022-10-10] MEDS: MoRPHine SULFATE 10 MG/0.5 ML UDP PO PRN ×5 (08:14→20:02)
[2022-10-10] MEDS: PANTOprazole 40 MG TAB PO SCH (08:15)
[2022-10-10] MEDS: rifAXIMin 550 MG TABLET PO SCH ×2 (08:15→20:03)
[2022-10-10] MEDS: LACTULOSE SYRUP 30 GM/45 ML UDP PO SCH (08:15)
[2022-10-10] MEDS: CITALOPRAM 20 MG TAB PO SCH (08:15)
[2022-10-10] MEDS: SPIRONOLACTONE 100 MG TAB PO SCH (08:15)
[2022-10-10] MEDS: POTASSIUM CHLORIDE CRTAB 20 MEQ TABCR PO SCH (08:16)
[2022-10-10] MEDS: PANCREAZE (LIPASE 10,500U) CAP PO SCH ×3 (08:16→17:20)
[2022-10-10 08:24] LABS: Ferritin 3.8 ng/ml (8-388)
[2022-10-10] MEDS ORDERED: SODIUM CHLORIDE 0.9% 250 ML IV PRN (10:09)
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
[2022-10-10] MEDS: PANTOprazole 40 MG in SYRINGE 0 ML IV SCH (20:07)
[2022-10-11] MEDS: LORazepam 0.5 MG TAB PO PRN ×5 (01:49→21:05)
[2022-10-11] MEDS: MoRPHine SULFATE 10 MG/0.5 ML UDP PO PRN ×6 (01:49→23:20)
[2022-10-11 07:25] LABS: Hematocrit (blood only) 28.6 % (37.0-47.0); Mean Corpuscular Hemoglobin 22.3 pg (25.0-34.0); Mean Corpuscular Hgb Conc 31.5 g/dL (32.0-36.0); Mean Corpuscular Volume 70.8 fL (80.0-100.0); Platelet Count 80 K/uL (130-400); RDW Coefficient of Variation 21.5 % (11.5-14.5); RDW Standard Deviation 54.5 fL (36.4-46.3); Red Blood Count 4.04 M/uL (4.20-5.40); White Blood Count 1.58 K/ul (4.8-10.8)
[2022-10-11 07:28] LABS: INR 1.2 (0.9-1.1); Prothrombin Time 13.1 Seconds (9.0-12.0)
[2022-10-11 07:47] LABS: BUN Creatinine Ratio 24.1 (10-20); Bilirubin Direct 0.4 mg/dl (0-0.2); Bilirubin,Total 1.7 mg/dl (0.2-1.0); Calcium 8.4 mg/dl (8.6-10.3); Est GFR (African American) 120.6 ml/min; Magnesium 1.7 mg/dl (1.7-2.4); Potassium 4.2 mmol/L (3.5-5.1); Total Protein 5.9 gm/dl (6.0-8.3)
[2022-10-11] MEDS: PANCREAZE (LIPASE 10,500U) CAP PO SCH ×3 (08:01→17:17)
[2022-10-11] MEDS: rifAXIMin 550 MG TABLET PO SCH ×2 (08:01→21:05)
[2022-10-11] MEDS: CITALOPRAM 20 MG TAB PO SCH (08:03)
[2022-10-11] MEDS: PANTOprazole 40 MG in SYRINGE 0 ML IV SCH (08:03)
[2022-10-11] MEDS: SPIRONOLACTONE 100 MG TAB PO SCH (08:03)
[2022-10-11] MEDS: FUROSEMIDE 40 MG TAB PO SCH ×2 (08:04→15:23)
[2022-10-11] MEDS: POTASSIUM CHLORIDE CRTAB 20 MEQ TABCR PO SCH (08:04)
[2022-10-11] MEDS: LACTULOSE SYRUP 20 GM/30 ML UDC PO SCH (08:04)
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
[2022-10-11] MEDS ORDERED: ALBUMIN 25% 25 GM/100 ML VIAL IV ONE (12:44)
--- NOTE | 2022-10-11 13:59 | Hospitalist Progress Note ---
Date of Service October 11, 2022 Assessment & Plan (1) Cirrhosis: Plan: 2/2 prior EtOH abuse-DENIES alcohol use since May of this year. Historically does not follow with GI as outpt and this year has been on hospice for cirrhosis although MELD score only 11 Now s/p paracentesis for 4.4L and no evidence of SBP EGD earlier this year with non bleeding varices no HE here With hypotension-give albumin IV today and restart home midodrine 5mg po tid Continue rifaximin, spironolactone, lasix, and prn lactulose Appreciate GI consultation-pt would like to follow up with GI as outpt Is on morphine po for chronic abdominal and back pain-see below continue PPI bid (2) Anemia: Plan: acute on chronic, hx gastric bypass/GI bleeding in past. On PPI BID. Blood in stool noted, 1u PRBC given on 10/10 and hgb up to 9 Iron panel obtained given MCV, iron/ferritin/trans % sat LOW, unsaturated IBC HIGH -consider Venofer IV while inpatient -monitor CBC in AM -check B12, folate, and TSH in AM (3) Abdominal pain: Plan: chronic, related to cirrhosis? also with h/o spinal cord stimulator that is obselete and chronic lower back pain seen by Pain Management-nothing to offer continue morphine prn needs Palliative to follow as outpt or PCP to manage po morphine (4) Pancytopenia: Plan: anemia as above also with thrombocytopenia and leukopenia almost certainly from liver cirrhosis but will check B12, folate in AM as well follow CBC (5) GERD (gastroesophageal reflux disease): Plan: continue PPI but convert to po from IV Plan Dispo-continued stay on med/surg, awaiting Palliative Consult as well as Case Management arrangements for new hospice agency vs outpt Palliative? Admission and Anticipated Discharge Date Admission Date: October 08, 2022 Subjective Pt reports pain in abdomen and back is controlled with morphine. She does desire to prolong her life with her cirrhosis and says she is willing to follow with GI as an outpt SH eis moving her bowels. I discussed her care with GI PA Physical Exam Constitutional: WD/WN, vitals as above Respiratory: normal respiratory effort, lungs clear to auscultation Cardiovascular: RRR, no murmur, no edema Gastrointestinal (Abdomen): Inspection/Auscultation: normal bowel sounds; + abdomen abnormal to inspection (pain pump Right abdomen subcutaneous) and abdomen not distended Percussion/Palpation: abdomen soft; abdomen nontender Psychiatric: A+Ox3, euthymic affect Results & Data Results & Data Vital Signs (Past 12 Hours) Vital Signs Pulse Resp BP Pulse Ox O2 Del Method 10/11/22 08:17 66 16 87/59 L 92 Room Air Laboratory Results CBC, CMP, INR reviewed PG Care Time/CCT Total # of Minutes Spent Total Time Spent with Patient: Total time spent is greater than 50% in coordination of care (as documented) at patient's floor/unit and/or counseling patient: Coding Level of Care Code 18871 SUB INP/OBS CARE 2/35MIN Diagnoses Cirrhosis K70.31 Ascites presence: with ascites Hepatic cirrhosis type: alcoholic cirrhosis Anemia D64.9 Anemia type: unspecified type Abdominal pain R10.9 Pancytopenia D61.818 GERD (gastroesophageal reflux disease) K21.9 (1) Cirrhosis Ascites presence: with ascites Hepatic cirrhosis type: alcoholic cirrhosis Qualified Code(s): K70.31 - Alcoholic cirrhosis of liver with ascites (2) Anemia Anemia type: unspecified type Qualified Code(s): D64.9 - Anemia, unspecified
[2022-10-11] MEDS: MIDODRINE HCL 2.5 MG TAB PO SCH ×2 (15:24→17:17)
[2022-10-11] MEDS: PANTOprazole 40 MG TAB PO SCH (21:06)
[2022-10-12] MEDS: LORazepam 0.5 MG TAB PO PRN ×5 (01:05→20:11)
[2022-10-12] MEDS: ONDANSETRON 4 MG OD TAB PO PRN (01:06)
[2022-10-12] MEDS: MoRPHine SULFATE 10 MG/0.5 ML UDP PO PRN ×5 (04:40→20:02)
[2022-10-12] MEDS: FUROSEMIDE 40 MG TAB PO SCH ×2 (07:31→16:18)
[2022-10-12] MEDS: MIDODRINE HCL 2.5 MG TAB PO SCH ×3 (07:31→16:19)
[2022-10-12] MEDS: PANTOprazole 40 MG TAB PO SCH ×2 (07:31→20:04)
[2022-10-12] MEDS: POTASSIUM CHLORIDE CRTAB 20 MEQ TABCR PO SCH (07:32)
[2022-10-12] MEDS: PANCREAZE (LIPASE 10,500U) CAP PO SCH ×3 (07:32→16:18)
[2022-10-12] MEDS: SPIRONOLACTONE 100 MG TAB PO SCH (07:32)
[2022-10-12] MEDS: rifAXIMin 550 MG TABLET PO SCH ×2 (07:32→20:04)
[2022-10-12] MEDS: LACTULOSE SYRUP 20 GM/30 ML UDC PO SCH (07:33)
[2022-10-12] MEDS: CITALOPRAM 20 MG TAB PO SCH (07:33)
[2022-10-12 08:34] LABS: Albumin Globulin Ratio 1.1 (0.9-2); Albumin Level 3.3 gm/dl (3.4-5.0); BUN Creatinine Ratio 26.8 (10-20); Bilirubin,Total 1.3 mg/dl (0.2-1.0); Calcium 8.6 mg/dl (8.6-10.3); Creatinine Clr Calc Pharmacy 88.7 ml/min; Est GFR (African American) 119.1 ml/min; Est GFR (Non-African American) 102.8 ml/min; Magnesium 1.8 mg/dl (1.7-2.4); Potassium 4.3 mmol/L (3.5-5.1); Total Protein 6.3 gm/dl (6.0-8.3)
[2022-10-12 08:36] LABS: Basophils # (auto) 0.01 K/uL (0.00-0.20); Basophils % (auto) 0.5 %; Echinocytes 2+; Eosinophils # (auto) 0.06 K/uL (0.00-0.50); Hematocrit (blood only) 29.2 % (37.0-47.0); Hemoglobin 9.2 g/dl (12.0-16.0); Immature Granulocytes # (auto) 0.01 K/uL (0.01-0.20); Immature Granulocytes % (auto) 0.5 %; Lymphocytes # (auto) 0.51 K/uL (1.20-3.40); Lymphocytes % (auto) 25.1 %; Mean Corpuscular Hemoglobin 22.5 pg (25.0-34.0); Mean Corpuscular Hgb Conc 31.5 g/dL (32.0-36.0); Mean Corpuscular Volume 71.6 fL (80.0-100.0); Monocytes # (auto) 0.31 K/uL (0.11-0.59); Monocytes % (auto) 15.3 %; Neutrophils # (auto) 1.13 K/uL (1.40-6.50); Neutrophils % (auto) 55.6 %; Platelet Count 82 K/uL (130-400); Platelet Estimate Decreased (Normal); Polychromasia 1+; RDW Standard Deviation 55.3 fL (36.4-46.3); Red Blood Count 4.08 M/uL (4.20-5.40); Tear Drop Cells 1+; White Blood Count 2.03 K/ul (4.8-10.8)
[2022-10-12 08:53] LABS: Folate (Folic Acid),Ser orPlas 11.58 ng/ml (>5.38)
[2022-10-12 10:48] LABS: Codeine Urine NEGATIVE ng/mL (<50); Hydrocodone Urine NEGATIVE ng/mL (<50); Hydromor Urine 60 ng/mL (<50); Marijuana Quant, GCMS Urine 208 ng/mL (<5); Morphine Urine 8790 ng/mL (<50); Norhydrocodone Conf Ur NEGATIVE ng/mL (<50); Noroxycodone Urine 5170 ng/mL (<50); Oxycodone Urine 469 ng/mL (<50); Oxymorph Urine 672 ng/mL (<50)
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
[2022-10-12] MEDS: MoRPHine SULFATE CR 15 MG TABCR PO SCH (16:16)
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
[2022-10-12] MEDS ORDERED: MAGNESIUM OXIDE 400 MG TAB PO SCH (16:40)
[2022-10-12] MEDS: THIAMINE HCL 100 MG TAB PO SCH (17:47)
[2022-10-12] MEDS: CEROVITE ADV FORMULA TAB PO SCH (17:48)
[2022-10-12] MEDS: FOLIC ACID 1 MG TAB PO SCH (17:48)
[2022-10-12] MEDS ORDERED: CALCIUM CARBONATE 1250MG TAB PO SCH (21:00)
[2022-10-13] MEDS: MoRPHine SULFATE 10 MG/0.5 ML UDP PO PRN ×3 (00:04→10:45)
[2022-10-13] MEDS: MoRPHine SULFATE CR 15 MG TABCR PO SCH ×3 (08:03→15:58)
[2022-10-13] MEDS: LACTULOSE SYRUP 20 GM/30 ML UDC PO SCH (09:12)
[2022-10-13] MEDS: THIAMINE HCL 100 MG TAB PO SCH (09:15)
[2022-10-13] MEDS: MIDODRINE HCL 2.5 MG TAB PO SCH ×3 (09:15→17:11)
[2022-10-13] MEDS: CITALOPRAM 20 MG TAB PO SCH (09:15)
[2022-10-13] MEDS: FOLIC ACID 1 MG TAB PO SCH (09:15)
[2022-10-13] MEDS: PANCREAZE (LIPASE 10,500U) CAP PO SCH ×3 (09:15→17:11)
[2022-10-13] MEDS: CEROVITE ADV FORMULA TAB PO SCH (09:15)
[2022-10-13] MEDS: PANTOprazole 40 MG TAB PO SCH (09:15)
[2022-10-13] MEDS: rifAXIMin 550 MG TABLET PO SCH (09:15)
[2022-10-13] MEDS: POTASSIUM CHLORIDE CRTAB 20 MEQ TABCR PO SCH (09:15)
[2022-10-13] MEDS: SPIRONOLACTONE 100 MG TAB PO SCH (10:43)
[2022-10-13] MEDS: FUROSEMIDE 40 MG TAB PO SCH ×2 (10:43→17:11)
--- NOTE | 2022-10-13 11:30 | XRay Report ---
XR chest 1V portable CLINICAL HISTORY: Atypical chest pain. COMPARISON STUDY: Chest CT April 07. Chest radiograph October 08, 2022. FINDINGS: There is moderate elevation of the right hemidiaphragm. Gaseous below the right hemidiaphra gm is within the colon. There is no pneumothorax or pleural effusion. Is no consolidation to suggest pneumonia. Cardiac size is normal. No evidence for pulmonary edema. IMPRESSION: No acute cardiopulmonary findings. Moderate elevation of the right hemidiaphragm, unchan ged. ACT 112: Negative or not required by law. Electronically signed by: Benedict Vaughn M.D. 10/13/2022 11:28 AM
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
--- NOTE | 2022-10-13 15:43 | Palliative Care Progress Note ---
Date of Service October 13, 2022 Assessment & Plan (1) Generalized pain: Plan: MS Gerson seems to be helping tonight will be full 24 hr of new med start, so no changes, can f/u with PCP MSIR as ordered recc limited supply of ten days for dc planning for all opioids zeny since she is not being followed by hospice anymore (2) Abdominal pain: (3) Palliative care by specialist: (4) Advanced care planning/counseling discussion: Plan: Siena wants to pursue some liver disease therapy and states she will keep appt with GI for now she does not want hospice but home health/standard VNS would be ok Plan Continue MS Contin and MSIR as needed for BTP Recc ten day rx on dc for any controlled substances and assure she has PCP appt scheduled prior to dc She plans to follow with Hepatology team Pall Med will sign off. Thank you for allowing us to participate in the ongoing care of this patient. Please don't hesitate to call or page with any additional concerns. Dr. Yuli Thomas DNP Director, Palliative Care Admission and Anticipated Discharge Date Admission Date: October 08, 2022 Subjective pain is somewhat better tolerating MS Gerson anticipate dc home this evening does not want to file police report for missing opioids stating this would create family tension and she wants to avoid plans to establish care with PCP Dr Echavarria and tells me she was advised he is comfortable managing her complex pain med needs Review of Systems Review of Systems: All systems reviewed & are unremarkable except as noted in Subjective Physical Exam Physical Exam: Resting in bed, lying down, sheets pulled over her head, room is dark/no light/blinds closed AAOx3 when I called her name no acute distress coor pale skin wamr RR 14, even no rales or rhonchi, normal effort no JVD, S1S2 no stridor abd soft, non tender generalized deconditioning no c/c/e AAOx3 Results & Data Vital Signs (Past 12 Hours) Vital Signs Temp Pulse Resp BP Pulse Ox O2 Del Method 10/13/22 13:30 36.7 C 67 18 108/68 94 10/13/22 12:42 67 108/68 10/13/22 10:26 69 97/63 L 10/13/22 09:12 67 87/57 L 10/13/22 07:48 36.7 C 77 18 103/64 94 Room Air PG Care Time/CCT Total # of Minutes Spent Total Time Spent: 60 Total Time Spent with Patient: Total time spent is greater than 50% in coordination of care (as documented) at patient's floor/unit and/or counseling patient: Coding [place] [address] SUB INP/OBS CARE 3/50MIN Patient Type Established History Comprehensive Exam Comprehensive Medical Decision Making High Complexity Diagnoses Generalized pain R52 Abdominal pain R10.9 Palliative care by specialist Z51.5 Advanced care planning/counseling discussion Z71.89
--- NOTE | 2022-10-17 08:22 | Electrocardiogram Report ---
Test Reason : Blood Pressure : / mmHG Vent. Rate : 069 BPM Atrial Rate : 069 BPM P-R Int : 186 ms QRS Dur : 094 ms QT Int : 436 ms P-R-T Axes : 015 -27 013 degrees QTc Int : 467 ms Normal sinus rhythm Poor R wave progression, consider anterior PR vs. lead placement vs. LVH When compared with ECG of 08-OCT-2022 18:12, Nonspecific T wave abnormality no longer evident in Anterior leads Confirmed by Roderick De Leon ([id number]) on 10/17/2022 8:22:11 AM Referred By: REFERRED SELF Confirmed By:Roderick De Leon
== END 2022-10-13 19:36 | disposition home health service (06) | DRG 433 ==
LOC: ED 17:49 → 3W 20:54 → SUATTDRO 20:54 → 3W 10-09 00:01